=== PATIENT | female | born 1960 | race Caucasian/White ===

== ENCOUNTER 2016-11-23 14:12 | Emergency (ER) | payer MEDICAID, OTHER ==
[~2016-11-23] VITALS: Ht 157.5 cm; Wt 77.1 kg
[~2016-11-23 14:12] MED LIST: AC500T PO; ACET-819 PO; ALBU0.8322 IH; ALBU17AE23 IH; ALBU17AE3; ALBU17AE3 IH; ALBU2.5V52 INH; ALBU8.5H2 IH; ALBU8.5H2 INH; ALPR.5T PO; AMLO10TA82 PO; AMLO2.5T PO; AMOX500C2 PO; ASP325T PO; ASP81CT PO; ASP81TEC PO; ASPI-587 PO; ASPI-892 PO; AZIT-21 PO; AZTH250C PO; CARV12.5 PO; CLIN-62 PO; CLN.2T; CODE118S2 PO; CYCL10TA45 PO; CYCL10TA9; CYCL10TA9 PO; DCS100C PO; DIPH1TAB45; FAMO20TA5; FENO134C2 PO; FLUT1DIS28 INH; FRSM20T PO; FRSM40T PO; FURO20TA4 PO; GABA-488; GBPN300C; HYDR-1231 PO; HYDR-2858 PO; HYDR1CAP2 PO; HYDR1TAB PO; HYDR25CA5 PO; HYDR50TA76 PO; IBP600T1 PO; K-VANC1PB IV; Keflex; LAMO100T69 PO; LANS15CA PO; LANS30CA PO; LANS30CA43 PO; LEVO250T7 PO; LEVO500T69 PO; LEVO750T6 PO; LISI10TA PO; LISI20TA PO; LNS30CCR; LORA0.5T; MAGN-47 PO; MAXALT-MLT PO; METH4TAB PO; METO-272; METO-272 PO; METO50TA7 PO; METO5TAB2; MORP-34; MORP15TA; MTC5U10 PO; MTC5V480 PO; MTP100TCR PO; MTP50T PO; NAPR-243 PO; NAPR-689 PO; NAPR220C PO; NAPR250T2 PO; NF-ESOM40C; NIAC1000 PO; NITR-65 PO; NTR.4SL SL; OMEG-12 PO; OMEP20CA12 PO; OMG1KC PO; ONDA-42 PO; ONDA4TAB11 PO; ONDA4TAB8 PO; PANT40TA3; PHEN200T27 PO; PHEN64.8; PHEN97.2 PO; PHENOBARBITAL; POTA20TA15 PO; PRCD5U PO; PRD10T PO; PRD20T PO; PRM25T PO; RAMI5CAP PO; REGLAN LIQ; SEIZURE MED; SLMFT1E IH; SLMFT1E INH; SULF-222 PO; SULF1TAB35 PO; SULF1TAB38 PO; SULF1TAB7 PO; TIOT18CA IH; TLT2T PO; TOLTA4; TOLTA4 PO; TRAM-21 PO; TRM50T PO; [UNRECOGNIZED DRUG - CODE] PO
--- OUTSIDE RECORDS SUMMARY | 2016-11-23 14:20 | XMS REPORT | Continuity of Care Document ---
Author Author [facility] Organization [facility] Address Unknown Phone Unavailable Care Team Providers Care Shafting Cleaner Name Role Phone MehranSherice PCP [phone] Source Comments Some departments are not documenting in the electronic medical record. If you do not see the information that you expected, contact Release of Information in the Health Information Management department at [phone] for further assistance in locating additional records.[facility] Active Allergies and Adverse Reactions Allergen Noted Date Severity Reactions Comments Peterson Inhibitors 06/10/2014 UNKNOWN Nitric Oxide 06/10/2014 UNKNOWN Current Medications Prescription Sig. Disp. Refills Start End Date Status Date aspirin EC 81 mg tablet Take 81 mg by mouth Active daily. fluticasone-salmeterol Inhale 1 Puff by mouth Active (ADVAIR DISKUS) 100-50 every 12 hours. mcg inhalation disk albuterol (VENTOLIN HFA, Inhale 2 Puffs by mouth Active PROAIR HFA) 90 every 4 hours as needed. mcg/actuation inhaler metoclopramide HCl Take 10 mg by mouth twice Active (REGLAN) 1 mg/mL oral daily. solution omeprazole DR(+) Take 20 mg by mouth Active (PRILOSEC) 20 mg capsule daily. metoprolol XL (TOPROL XL) Take 50 mg by mouth Active 50 mg tablet daily. senna/docusate Take 1 Tab by mouth twice 60 Tab 0 06/22/20 Active (SENOKOT-S) 8.6/50 mg daily. 14 tablet acetaminophen SR(+) Take 650 mg by mouth Active (TYLENOL) 650 mg tablet every 6 hours as needed. ferrous sulfate 325 mg Take 1 Tab by mouth at 30 Tab 1 09/21/20 Active (65 mg iron) tablet bedtime daily. 14 polyethylene glycol 3350 Take 17 g by mouth daily 1 Bottle 1 09/21/20 Active (GLYCOLAX; MIRALAX) 17 as needed (constipation). 14 gram/dose powder morphine IR (MSIR) 15 mg Take 0.5 Tabs by mouth 120 Tab 2 09/21/20 Active tablet every 3 hours as needed 14 for Pain Earliest Fill Date: 09/20/14 morphine SR (MS CONTIN; Take 1 Tab by mouth twice 60 Tab 3 09/21/20 Active ORAMORPH SR) 15 mg tablet daily Earliest Fill Date: 14 09/20/14 traMADol (ULTRAM) 50 mg Take 0.5 Tabs by mouth 30 Tab 1 09/21/20 Active tablet every 8 hours as needed 14 for Pain. gabapentin (NEURONTIN) Take 1 Cap by mouth three 270 Cap 3 09/21/20 Active 300 mg capsule times daily. 14 bisacodyl (DULCOLAX) 10 Insert or Apply 1 15 0 09/21/20 Active mg rectal suppository Suppository to rectal Suppository 14 area as directed daily as needed. cyclobenzaprine Take 1 Tab by mouth twice 60 Tab 1 09/21/20 Active (FLEXERIL) 10 mg tablet daily (at 10AM and 10PM). 14 lidocaine (LIDODERM) 5 % Apply to painful area as 30 Patch 1 09/21/20 Active topical patch needed 14 LORazepam injection Administer 10 mg through Active (ATIVAN) 2 mg/mL syrg vein every 1 hour as needed. LORazepam injection Administer 5 mg through Active (ATIVAN) 2 mg/mL syrg vein every 1 hour as needed. PHENobarbital 97.2 mg Take 97.2 mg by mouth at Active tablet bedtime daily. trimethoprim-sulfamethoxa Take 1 Tab by mouth twice 60 Tab 3 11/11/19 Active zole (BACTRIM DS) 160-800 daily. 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 06/10/2014 Immunizations Name Dates Previously Given Next Due Flu Vaccine Trivalent=>3 07/12/2014 Yo (Preservative Free) Social History Tobacco Use Types Packs/Day Years Used Date Never Smoker Smokeless Tobacco: Never Used Alcohol Use Drinks/Week oz/Week Comments No denies alcohol use - states every 6 months or so may have a drink Last Filed Vital Signs Vital Sign Reading Time Taken Blood Pressure 110/80 11/11/2014 1:07 PM [employer] Pulse 72 11/11/2014 1:07 PM [employer] Temperature 36.5 C (97.7 F) 11/11/2014 1:07 PM [employer] Respiratory Rate 16 11/11/2014 1:07 PM [employer] Height 1.6 m (5' 3") 11/11/2014 1:07 PM [employer] Weight 82.101 kg (181 lb) 11/11/2014 1:07 PM [employer] Body Mass Index 32.07 11/11/2014 1:07 PM [employer] Oxygen Saturation 94% 09/21/2014 7:45 AM [employer] Plan of Care Health Maintenance Due Date Last Done Comments Physical (Comprehensive) 1967 Exam Pertussis Vaccine 1971 Tetanus Vaccine 1977 Cervical Cancer Screening 1981 Breast Cancer Screening 2000 Colorectal Cancer 2010 Screening Influenza Vaccine 06/13/2016 07/12/2014 Hepatitis C Screening Completed 06/11/2014, 06/11/2014, 06/10/2014 Results from Last 3 Months Not on file
[2016-11-23] MEDS ORDERED: RT-ALBUTEROL/IPRATROPIUM 3 ML (DUONEB) VIAL INH ONE (15:00)
[2016-11-23] MEDS ORDERED: DOXYCYCLINE 100 MG (VIBRAMYCIN) TABLET PO STA (15:35)
--- NOTE | 2016-11-23 15:41 | ED Cough/URI ---
General Chief Complaint: Cough/Cold/Flu Symptoms Stated Complaint: SOA/COUGH/VOMITING Source: patient Exam Limitations: no limitations History of Present Illness Time seen by provider: 15:25 Initial Comments Here with report of shortness of air and cough for the last week. If not better with hlgn-idx-ymbhunk meds. She has history of bronchitis but does not have an inhaler. Denies fever. She states that she has lost her voice in the last 24 hours. Has occasionally vomited with coughing. Timing/Duration: week, getting worse Severity/Quality: moderate, dry cough Prior Episodes/Possible Cause: occasional episodes Modifying Factors: Worse With Activity, Worse With Coughing, Improves With Rest Associated Symptoms: cough, shortness of breath, wheezing Allergies and Home Medications Allergies Coded Allergies: nitrous oxide (Verified Allergy, Unknown, 06/08/07) AILEEN Inhibitors (Verified Adverse Reaction, Unknown, 05/25/14) Causes Hyperkalemia Home Medications Albuterol Sulfate 8.5 Gm Hfa.aer.ad #1 2 PUFF IH Q4H PRN PRN WHEEZING Prescribed by: QUIN JONES on 11/23/16 1544 Doxycycline Hyclate 100 Mg Tablet #20 100 MG PO BID Prescribed by: QUIN JONES on 11/23/16 1544 Lansoprazole 30 Mg Capsule.dr 30 MG PO UD (Reported) Metoprolol Succinate 50 Mg Tab.er.24h #30 (Reported) Morphine Sulfate 15 Mg Tablet #60 (Reported) Phenobarbital 64.8 Mg Tablet #75 (Reported) Prednisone 20 Mg Tab #10 40 MG PO DAILY Prescribed by: QUIN JONES on 11/23/16 1544 Sulfamethoxazole/Trimethoprim 1 Each Tablet #20 1 EACH PO BID Prescribed by: HOLA BRIGHT on 08/05/16 0796 Constitutional: see HPINo chills, No fever EENTM: hoarseness nose congestion Respiratory: cough short of breath wheezing Cardiovascular: no symptoms reported Gastrointestinal: see HPINo diarrhea, No nausea, vomiting Genitourinary: no symptoms reported Musculoskeletal: no symptoms reported Past Iuvmjaf-Xaemeh-Ndjfpn Hx Patient Social History Former Smoker/When Quit: Oct 13, 2007 Recent Foreign Travel: No Contact w/Someone Who Travel: No Recent Hopitalizations: No Immunizations Up To Date Tetanus Booster (TDap): Less than 5yrs PED Vaccines UTD: No Date of Pneumonia Vaccine: Jul 13, 2012 Date of Influenza Vaccine: Aug 17, 2014 Seasonal Allergies Seasonal Allergies: No Surgeries HX Surgeries: Yes Surgeries: Abdominal, Appendectomy, Bladder Surgery, Section, Hysterectomy, Orthopedic, Tonsillectomy Respiratory Hx Respiratory Disorders: Yes (SUPPOSED TO WEAR O2 AT HS AT 2 1/2-3L AT HS AND PRN) Respiratory Disorders: Asthma, Pneumonia, Chronic Bronchitis, COPD, Emphysema Cardiovascular Hx Cardiac Disorders: Yes Cardiac Disorders: Cardiomyopathy, Coronary Artery Disease, Endocarditis, Heart Attack, Hypertension, Peripheral Vascular Neurological Hx Neurological Disorders: Yes (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; CVA LEFT SIDE WEAKNESS, POOR BALANCE/USES WALKER) Neurological Disorders: Seizure Disorder, Traumatic Brain Injury 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 System Hx 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 Disorders: No Sexually Transmitted Disease: No HIV/AIDS: No Female 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 VENEREAL DISEASE CONTROL HEAD History: Hysterectomy Genitourinary Hx Genitourinary Disorders: Yes (OVERACTIVE BLADDER) Genitourinary Disorders: Kidney Infection, Bladder Infection, Kidney Stones, Renal Failure, UTI-Chronic Gastrointestinal Hx Gastrointestinal Disorders: Yes (CHRONIC ABDOMINAL PAIN COMPLAINT; GASTRITIS ; HEPATITIS C) Gastrointestinal Disorders: Abdominal Hernia, Gastroesophageal Reflux, Pancreatitis, Hepatitis Musculoskeletal Hx Musculoskeletal Disorders: Yes Musculoskeletal Disorders: Arthritis, Chronic Back Pain Endocrine Hx Endocrine Disorders: No HEENT HX ENT Disorders: Yes (POOR DENTITION; FALSE TEETH ON FRONT WITH PARTIAL PLATE) Loss of Vision: Denies Hearing Impairment: Denies Cancer Hx Cancer: Yes Cancer: Cervical Psychosocial Hx Psychiatric Problems: Yes (SUBSTANCE ABUSE) Behavioral Health Disorders: Anxiety, Bipolar, Depression Integumentary HX Skin/Integumentary Disorder: No Blood Transfusions Hx Blood Disorders: Yes (ANEMIA) Adverse Reaction to a Blood Tr: No Reviewed Nursing Assessment Reviewed/Agree w Nursing PMH: Yes Family Medical History Significant Family History: No Pertinent Family Hx Family Medial History: Abdominal aortic aneurysm 03 FATHER Alcoholism 03 FATHER 03 MOTHER 09 SISTER 09 SISTER Cancer 03 FATHER Cataract 03 FATHER 03 MOTHER Chest pain 03 MOTHER Family history: Diabetes mellitus 03 MOTHER Family history: Hypertension 03 MOTHER Family history: Thyroid disorder 03 MOTHER Headache 09 SISTER Heart disease 03 MOTHER History of drug abuse 03 FATHER 09 SISTER Myocardial infarction 03 MOTHER No Family History of: Alger's disease Aphasia Cancer of colon Congenital heart disease Congestive heart failure Cystic fibrosis Dementia Dysphagia Family history: Allergy Family history: Alzheimer's disease Family history: Arthritis Family history: Asthma Family history: Breast disease Family history: Cardiovascular disease Family history: Coronary thrombosis Family history: Gastrointestinal disease Family history: Glaucoma Family history: Osteoporosis Hearing loss Hereditary disease History of - anemia History of - disorder History of - respiratory disease Human immunodeficiency virus (HIV) seropositivity Hypercholesterolemia Infertile Kidney disease Malignant neoplasm of lung Parkinson's disease Prostate cancer Psychotic disorder Seizure disorder Stroke Tuberculosis Visual impairment Physical Exam Vital Signs Vital Sign - Last 12Hours 11/23/16 15:10 Pulse Ox 96 Capillary Refill : General Appearance: WD/WN no apparent distress HEENT: PERRL/EOMI pharynx normal Neck: full range of motion supple Respiratory: no accessory muscle use wheezing other (course sounding cough) Cardiovascular: regular rate, rhythm no murmur Gastrointestinal: non tender soft Neurologic/Psychiatric: alert oriented x 3 Skin: normal color warm/dry Progress/Results/Core Measures Results/Orders Micro Results Microbiology 11/23/16 Influenza Types A,B Antigen (JOHANA) - Final, Complete My Orders Orders-QUIN JONES MD Influenza A And B Antigens (11/23/16 14:38) Albuterol/Ipra Inhalation Soln (Duoneb I (11/23/16 15:00) Svn Sm Volume Nebulizer Rt-Rfs (11/23/16 14:47) Chest Pa/Lat (2 View) (11/23/16 15:10) Doxycycline Hyclate Tablet (Vibramycin T (11/23/16 15:35) Prednisone Tablet (Deltasone Tablet) (11/23/16 15:45) Rx-Albuterol Inhaler (Rx-Proair) (11/23/16 15:45) Medications Given in ED Current Medications Medications Dose Ordered Sig/Tad Route Start Time Stop Time Status Last Admin Dose Admin Albuterol/ Ipratropium 3 ml ONCE ONCE INH 11/23/16 15:00 11/23/16 15:01 DC 11/23/16 15:03 3 ML Vital Signs/I&O Vital Sign - Last 12Hours 11/23/16 15:10 Pulse Ox 96 Progress Note : Progress Note Seen and evaluated. Influenza screen done. Duo neb ordered. This did help a little bit. Two-view chest x-ray done. No acute findings of pneumonia. Doxycycline 100 mg by mouth, prednisone 40 mg by mouth and albuterol MDI given. Discharged home with return precautions. Patient verbalize understanding instructions and agreement with plan. Diagnostic Imaging Diagonstic Imaging: Xray Plain Films/CT/US/NM/MRI: chest Comments NAME: [facility] REC#: [id number] PT STATUS: REG ER : 1960 PHYSICIAN: QUIN JONES MD ADMIT DATE: 11/23/16/ER Draft Date of Exam:11/23/16 CHEST PA/LAT (2 VIEW) EXAM: Chest PA/LAT (2 views). INDICATION: Worsening shortness of breath. Cough. Vomiting. COMPARISON: Chest radiograph from 06/06/2014. FINDINGS: Normal heart size and pulmonary vascularity. No focal pulmonary opacity, pleural effusion or pneumothorax. Mild bronchial wall thickening, similar to the prior exam, presumably due to chronic lung disease. Degenerative changes in the spine. IMPRESSION: No acute cardiopulmonary findings. Dictated on workstation # [id number] Dict: 11/23/16 1531 Trans: 11/23/[address] [facility] [id number] Interpreted by: DAVIDE WALTERS MD Electronically signed by: Departure Impression Impression: Primary Impression: Bronchitis Disposition: 01 HOME, SELF-CARE Condition: Stable Departure-Patient Inst. Decision time for Depature: 15:42 Referrals: [facility] (PCP/Family) Primary Care Physician Patient Instructions: Acute Bronchitis, Adult (DC) Add. Discharge Instructions: All discharge instructions reviewed with patient and/or family. Voiced understanding. Take medications as directed. Follow-up with your doctor on Friday or Friday for recheck. Return for worsening, fever, vomiting, breathing problems, weakness or other concerns as needed. Scripts Albuterol Sulfate (Proair Hfa)8.5 Gm Hfa.aer.ad2 Puff IH Q4H PRN WHEEZING #1 INH Ref 0 Prov:QUIN JONES MD 11/23/16 Prednisone 20 Mg Tab40 Mg PO DAILY #10 TAB Prov:QUIN JONES MD 11/23/16 Doxycycline Hyclate 100 Mg [id number] Mg PO BID #20 TAB Prov:QUIN JONES MD 11/23/16 QUIN JONES MD Nov 23, 2016 15:41
[2016-11-23] MEDS ORDERED: RT-ALBUINH IH (15:44)
[2016-11-23] MEDS ORDERED: DOXY100T2 PO (15:44)
[2016-11-23] MEDS ORDERED: PRD20T PO (15:44)
[2016-11-23] MEDS ORDERED: predniSONE 20 MG TAB PO ONE (15:45)
[2016-11-23] MEDS ORDERED: RX-ALBUTEROL INHALER (PROAIR) 8 GM IH PRN (15:45)
[2016-11-23 16:00] VITALS: BP 142/70
== END 2016-11-23 16:00 | disposition home or self-care (01) ==
LOC: EDUNIT# 14:12 → ER 14:15
DX: J44.9 Chronic obstructive pulmonary disease, unspecified (principal); I25.10 Atherosclerotic heart disease of native coronary artery without angina pectoris; Z79.899 Other long term (current) drug therapy
CPT/HCPCS: 71020; 87804; 99282

== ENCOUNTER 2017-03-06 09:42 | Emergency (ER) | payer MEDICAID, OTHER ==
[~2017-03-06] VITALS: Ht 160 cm; Wt 90.7 kg
[~2017-03-06 09:42] MED LIST changes: +DOXY100T2 PO; +RT-ALBUINH IH
--- NOTE | 2017-03-06 10:07 | ED Abdominal Pain ---
General Chief Complaint: Abdominal/GI Problems Stated Complaint: ABD PAIN Source of Information: Patient, EMS Exam Limitations: No Limitations (MIESHA UPTON MD) History of Present Illness Time Seen By Provider: 10:03 Initial Comments The patient is a 56-year-old white female known to me for many years relative to repeated emergency room visits mostly for pseudoseizures. She reports that she developed abdominal pain a week ago. She states that it got much worse yesterday. [facility] no [facility] to contact him. She states that there has not been vomiting. She had a bowel movement yesterday which seemed to be normal. She has been able to continue eating through this period of time. She motions that the pain is all over the belly although perhaps greater in the left lower quadrant. She also states that she is out of her usual maintenance medications. Timing/Duration: 1 Week Severity/Quality: Moderate Location: LLQ, Generalized Abdomen Radiation: No Radiation (MIESHA UPTON MD) Allergies and Home Medications Allergies Coded Allergies: nitrous oxide (Verified Allergy, Unknown, 06/08/07) ALIEEN Inhibitors (Verified Adverse Reaction, Unknown, 05/25/14) Causes Hyperkalemia Home Medications Albuterol Sulfate 8.5 Gm Hfa.aer.ad, 2 PUFF IH Q4H PRN for WHEEZING, #1 Ref 0 Prescribed by: QUIN JONES on 11/23/16 1544 Doxycycline Hyclate 100 Mg Tablet, 100 MG PO BID, #20 Prescribed by: QUIN JONES on 11/23/16 1544 Lansoprazole 30 Mg Capsule.dr, 30 MG PO UD, (Reported) Metoprolol Succinate 50 Mg Tab.er.24h, #30 (Reported) Morphine Sulfate 15 Mg Tablet, #60 (Reported) Phenobarbital 64.8 Mg Tablet, #75 (Reported) Polyethylene Glycol 3350 119 Gm Powder, 17 GM PO BID, #119 Ref 1 Take one capful twice daily for 3 days and then one capful daily thereafter to keep stools soft. Prescribed by: QUIN JONES on 03/06/17 1140 Prednisone 20 Mg Tab, 40 MG PO DAILY, #10 Prescribed by: QUIN JONES on 11/23/16 1544 Sulfamethoxazole/Trimethoprim 1 Each Tablet, 1 EACH PO BID, #20 Prescribed by: HOLA BRIGHT on 08/05/16 2216 Review of Systems Constitutional: see HPI EENTM: No Symptoms Reported Respiratory: No Symptoms Reported Cardiovascular: No Symptoms Reported Gastrointestinal: See HPI Genitourinary: No Symptoms Reported Musculoskeletal: no symptoms reported Skin: no symptoms reported Psychiatric/Neurological: No Symptoms Reported Endocrine: No Symptoms Reported Hematologic/Lymphatic: No Symptoms Reported (MIESHA UPTON MD) Past Noakdar-Pfxaaf-Ubtmpu Hx Patient Social History Alcohol Use: Denies Use Recreational 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) Smoking Status: Never a Smoker Former Smoker/When Quit: Oct 13, 2007 Recent Hopitalizations: No (MIESHA UPTON MD) Immunizations Up To Date Tetanus Booster (TDap): Less than 5yrs PED Vaccines UTD: No Date of Pneumonia Vaccine: Jul 13, 2012 Date of Influenza Vaccine: Aug 17, 2014 (MIESHA UPTON MD) Seasonal Allergies Seasonal Allergies: No (MIESHA UPTON MD) Surgeries HX Surgeries: Yes Surgeries: Abdominal, Appendectomy, Bladder Surgery, Section, Hysterectomy, Orthopedic, Tonsillectomy (MIESHA UPTON MD) Respiratory Hx Respiratory Disorders: Yes (SUPPOSED TO WEAR O2 AT HS AT 2 1/2-3L AT HS AND PRN) Respiratory Disorders: Asthma, Pneumonia, Chronic Bronchitis, COPD, Emphysema (MIESHA UPTON MD) Cardiovascular Hx Cardiac Disorders: Yes Cardiac Disorders: Cardiomyopathy, Coronary Artery Disease, Endocarditis, Heart Attack, Hypertension, Peripheral Vascular (MIESHA UPTON MD) Neurological Hx Neurological Disorders: Yes (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; CVA LEFT SIDE WEAKNESS, POOR BALANCE/USES WALKER) Neurological Disorders: Seizure Disorder, Traumatic Brain Injury (MIESHA UPTON MD) 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 System Hx 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 Disorders: No Sexually Transmitted Disease: No HIV/AIDS: No Female 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 (MIESHA UPTON MD) Genitourinary Hx Genitourinary Disorders: Yes (OVERACTIVE BLADDER) Genitourinary Disorders: Kidney Infection, Bladder Infection, Kidney Stones, Renal Failure, UTI-Chronic (MIESHA UPTON MD) Gastrointestinal Hx Gastrointestinal Disorders: Yes (CHRONIC ABDOMINAL PAIN COMPLAINT; GASTRITIS ; HEPATITIS C) Gastrointestinal Disorders: Abdominal Hernia, Gastroesophageal Reflux, Pancreatitis, Hepatitis (MIESHA UPTON MD) Musculoskeletal Hx Musculoskeletal Disorders: Yes Musculoskeletal Disorders: Arthritis, Chronic Back Pain (MIESHA UPTON MD) Endocrine Hx Endocrine Disorders: No (MIESHA UPTON MD) HEENT HX ENT Disorders: Yes (POOR DENTITION; FALSE TEETH ON FRONT WITH PARTIAL PLATE) Loss of Vision: Denies Hearing Impairment: Denies (MIESHA UPTON MD) Cancer Hx Cancer: Yes Cancer: Cervical (MIESHA UPTON MD) Psychosocial Hx Psychiatric Problems: Yes (SUBSTANCE ABUSE) Behavioral Health Disorders: Anxiety, Bipolar, Depression (MIESHA UPTON MD) Integumentary HX Skin/Integumentary Disorder: No (MIESHA UPTON MD) Blood Transfusions Hx Blood Disorders: Yes (ANEMIA) Adverse Reaction to a Blood Tr: No (MIESHA UPTON MD) Family Medical History Significant Family History: No Pertinent Family Hx Family Medial History: Abdominal aortic aneurysm 03 FATHER Alcoholism 03 FATHER 03 MOTHER 09 SISTER 09 SISTER Cancer 03 FATHER Cataract 03 FATHER 03 MOTHER Chest pain 03 MOTHER Family history: Diabetes mellitus 03 MOTHER Family history: Hypertension 03 MOTHER Family history: Thyroid disorder 03 MOTHER Headache 09 SISTER Heart disease 03 MOTHER History of drug abuse 03 FATHER 09 SISTER Myocardial infarction 03 MOTHER No Family History of: Montezuma's disease Aphasia Cancer of colon Congenital heart disease Congestive heart failure Cystic fibrosis Dementia Dysphagia Family history: Allergy Family history: Alzheimer's disease Family history: Arthritis Family history: Asthma Family history: Breast disease Family history: Cardiovascular disease Family history: Coronary thrombosis Family history: Gastrointestinal disease Family history: Glaucoma Family history: Osteoporosis Hearing loss Hereditary disease History of - anemia History of - disorder History of - respiratory disease Human immunodeficiency virus (HIV) seropositivity Hypercholesterolemia Infertile Kidney disease Malignant neoplasm of lung Parkinson's disease Prostate cancer Psychotic disorder Seizure disorder Stroke Tuberculosis Visual impairment (MIESHA UPTON MD) Family Medial History: Abdominal aortic aneurysm 03 FATHER Alcoholism 03 FATHER 03 MOTHER 09 SISTER 09 SISTER Cancer 03 FATHER Cataract 03 FATHER 03 MOTHER Chest pain 03 MOTHER Family history: Diabetes mellitus 03 MOTHER Family history: Hypertension 03 MOTHER Family history: Thyroid disorder 03 MOTHER Headache 09 SISTER Heart disease 03 MOTHER History of drug abuse 03 FATHER 09 SISTER Myocardial infarction 03 MOTHER No Family History of: Isael's disease Aphasia Cancer of colon Congenital heart disease Congestive heart failure Cystic fibrosis Dementia Dysphagia Family history: Allergy Family history: Alzheimer's disease Family history: Arthritis Family history: Asthma Family history: Breast disease Family history: Cardiovascular disease Family history: Coronary thrombosis Family history: Gastrointestinal disease Family history: Glaucoma Family history: Osteoporosis Hearing loss Hereditary disease History of - anemia History of - disorder History of - respiratory disease Human immunodeficiency virus (HIV) seropositivity Hypercholesterolemia Infertile Kidney disease Malignant neoplasm of lung Parkinson's disease Prostate cancer Psychotic disorder Seizure disorder Stroke Tuberculosis Visual impairment (QUIN JONES MD) Physical Exam Vital Signs VS - Last 72 Hours, by Label 03/06/17 09:42 Temp 99.0 Pulse 80 Resp 18 B/P (MAP) 170/80 Pulse Ox 98 (QUIN JONES MD) Vital Signs Capillary Refill : (MIESHA UPTON MD) General Appearance: moderate distress HEENT: normal ENT inspection Neck: full range of motion Respiratory: chest non-tender, lungs clear, normal breath sounds, no respiratory distress, no accessory muscle use Cardiovascular: normal peripheral pulses, regular rate, rhythm, no edema, no gallop, no JVD, no murmur Gastrointestinal: other (abdomen is obese and patulous. 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5 % Platelet Count 308 130-400 10^3/uL Mean Platelet Volume 9.9 7.4-10.4 FL Neutrophils (%) (Auto) 54 42-75 % Lymphocytes (%) (Auto) 35 12-44 % Monocytes (%) (Auto) 7 0-12 % Eosinophils (%) (Auto) 4 0-10 % Basophils (%) (Auto) 0 0-10 % Neutrophils # (Auto) 4.6 1.8-7.8 X 10^3 Lymphocytes # (Auto) 3.0 1.0-4.0 X 10^3 Monocytes # (Auto) 0.6 0.0-1.0 X 10^3 Eosinophils # (Auto) 0.3 0.0-0.3 10^3/uL Basophils # (Auto) 0.0 0.0-0.1 10^3/uL Sodium Level 141 135-145 MMOL/L Potassium Level 4.4 3.6-5.0 MMOL/L Chloride Level 104 98-107 MMOL/L Carbon Dioxide Level 25 21-32 MMOL/L Anion Gap 12 5-14 MMOL/L Blood Urea Nitrogen 33 H 7-18 MG/DL Creatinine 1.51 H 0.60-1.30 MG/DL Estimat Glomerular Filtration Rate 36 BUN/Creatinine Ratio 22 Glucose Level 98 70-105 MG/DL Calcium Level 9.4 8.5-10.1 MG/DL Total Bilirubin 0.4 0.1-1.0 MG/DL Aspartate Amino Transf (AST/SGOT) 18 5-34 U/L Alanine Aminotransferase (ALT/SGPT) 26 0-55 U/L Alkaline Phosphatase 64 40-136 U/L Total Protein 7.9 6.4-8.2 G/DL Albumin 4.2 3.2-4.5 G/DL Lipase 60 8-78 U/L Urine Color YELLOW Urine Clarity CLEAR Urine pH 6 5-9 Urine Specific [place] 1.015 L 1.016-1.022 Urine Protein NEGATIVE NEGATIVE Urine Glucose (UA) NEGATIVE NEGATIVE Urine Ketones NEGATIVE NEGATIVE Urine Nitrite NEGATIVE NEGATIVE Urine Bilirubin NEGATIVE NEGATIVE Urine Urobilinogen NORMAL NORMAL MG/DL Urine Leukocyte Esterase NEGATIVE NEGATIVE Urine RBC (Auto) NEGATIVE NEGATIVE Urine RBC NONE /HPF Urine WBC NONE /HPF Urine Crystals NONE /LPF Urine Bacteria NEGATIVE /HPF Urine Casts NONE /LPF Urine Mucus NEGATIVE /LPF Urine Culture Indicated NO (QUIN JONES MD) Vital Signs/I&O Vital Sign - Last 12Hours 03/06/17 09:42 Temp 99.0 Pulse 80 Resp 18 B/P (MAP) 170/80 Pulse Ox 98 (QUIN JONES MD) Progress Note : Progress Note Assumed care from Dr. UPTON pending x-ray and labs. 1130: Patient resting comfortably. Constipation noted on x-ray. Discharged home with return precautions. Patient verbalize understanding instructions and agreement with plan. She has appointment with her doctor tomorrow and she will keep that appointment. (QUIN JONES MD) Diagnostic Imaging Diagonstic Imaging: Xray Plain Films/CT/US/NM/MRI: abdomen Comments NAME: [facility] REC#: [id number] PT STATUS: REG ER : 1960 PHYSICIAN: MIESHA UPTON MD ADMIT DATE: 03/06/17/ER Signed Date of Exam: 03/06/17 ABDOMEN/KUB 1VIEW EXAM: KUB. INDICATION: Abdominal pain. FINDINGS: There are moderate amounts of fecal material seen in the colon. No dilated bowel loops are seen. No calcifications are noted to suggest urinary tract stones. IMPRESSION: No definite abnormality. Dictated by: Dictated on workstation # [id number] Dict: 03/06/17 1035 Trans: 03/06/17 1042 Interpreted by: PRITI SINGER MD Electronically signed by: PRITI SINGER MD 03/06/17 1042 Reviewed: Reviewed by Me (QUIN JONES MD) Departure Impression Impression: Primary Impression: Constipation Qualified Codes: K59.00 - Constipation, unspecified Additional Impression: Hypertensive urgency Disposition: 01 HOME, SELF-CARE Condition: Improved Departure-Patient Inst. Decision time for Depature: 11:36 (QUIN JONES MD) Referrals: [facility] (PCP/Family) Primary Care Physician Patient Instructions: Constipation, Adult (DC) Add. Discharge Instructions: All discharge instructions reviewed with patient and/or family. Voiced understanding. Take medications as directed. Follow-up with your doctor tomorrow as scheduled. Return for worse pain, fever, vomiting, weakness, breathing problems or other concerns as needed. Drink plenty of fluids. Scripts Polyethylene Glycol 3350 (Miralax) 119 Gm Powder 17 GM PO BID, #119 GM 1 Refill Take one capful twice daily for 3 days and then one capful daily thereafter to keep stools soft. Prov: QUIN JONES MD 03/06/17 MIESHA UPTON MD March 06, 2017 10:06 QUIN JONES MD March 06, 2017 11:39
[2017-03-06 10:09] LABS: BASOPHILS % (AUTO) 0 % (0-10); EOSINOPHILS # (AUTO) 0.3 10^3/uL (0.0-0.3); EOSINOPHILS % (AUTO) 4 % (0-10); LYMPHOCYTES % (AUTO) 35 % (12-44); MEAN CORPUSCULAR HEMOGLOBIN 29 PG (25-34); MEAN CORPUSCULAR HGB CONC 33 G/DL (32-36); MEAN CORPUSCULAR VOLUME 90 FL (80-99); MEAN PLATELET VOLUME 9.9 FL (7.4-10.4); MONOCYTES # (AUTO) 0.6 X 10^3 (0.0-1.0); MONOCYTES % (AUTO) 7 % (0-12); NEUTROPHILS # (AUTO) 4.6 X 10^3 (1.8-7.8); NEUTROPHILS % (AUTO) 54 % (42-75); PLATELET COUNT 308 10^3/uL (130-400); RED CELL DISTRIBUTION WIDTH 13.2 % (10.0-14.5); WHITE BLOOD COUNT 8.6 10^3/uL (4.3-11.0)
[2017-03-06 10:35] LABS: ALBUMIN 4.2 G/DL (3.2-4.5); BILIRUBIN,TOTAL 0.4 MG/DL (0.1-1.0); CALCIUM 9.4 MG/DL (8.5-10.1); CREATININE SERUM 1.51 MG/DL (0.60-1.30); POTASSIUM 4.4 MMOL/L (3.6-5.0); TOTAL PROTEIN 7.9 G/DL (6.4-8.2)
--- NOTE | 2017-03-06 10:39 | Diagnostic Imaging Report ---
EXAM: KUB. INDICATION: Abdominal pain. FINDINGS: There are moderate amounts of fecal material seen in the colon. No dilated bowel loops are seen. No calcifications are noted to suggest urinary tract stones. IMPRESSION: No definite abnormality. Dictated by: Dictated on workstation # [id number]
[2017-03-06 10:49] LABS: BILIRUBIN,URINE NEGATIVE (NEGATIVE); KETONES,URINE NEGATIVE (NEGATIVE); LEUKOCYTE ESTERASE ,URINE NEGATIVE (NEGATIVE); NITRITE,URINE NEGATIVE (NEGATIVE); PH,URINE 6 (5-9); PROTEIN,URINE NEGATIVE (NEGATIVE); UROBILINOGEN,URINE NORMAL (NORMAL)
[2017-03-06] MEDS ORDERED: POLY119P5 PO (11:40)
[2017-03-06 11:43] VITALS: BP 166/97
== END 2017-03-06 11:46 | disposition home or self-care (01) ==
LOC: EDUNIT# 09:42 → ER 09:45
DX: K59.00 Constipation, unspecified (principal); I16.0 Hypertensive urgency; I25.10 Atherosclerotic heart disease of native coronary artery without angina pectoris; J44.9 Chronic obstructive pulmonary disease, unspecified; Z79.899 Other long term (current) drug therapy
CPT/HCPCS: 36415; 74000; 80053; 81000; 83690; 85025

== ENCOUNTER 2017-06-18 18:00 | Emergency (ER) | payer MEDICAID ==
[~2017-06-18] VITALS: Ht 160 cm; Wt 90.8 kg
[~2017-06-18 18:00] MED LIST changes: +POLY119P5 PO
--- OUTSIDE RECORDS SUMMARY | 2017-06-18 18:07 | XMS REPORT | Clinical Summary ---
Author Author [facility] Organization [facility] Address Unknown Phone Unavailable Care Team Providers Care Esol Teacher Assistant Name Role Phone PCP Unavailable Source Comments Some departments are not documenting in the electronic medical record. If you do not see the information that you expected, contact Release of Information in the Health Information Management department at [phone] for further assistance in locating additional records.[facility] Allergies Active Allergy Reactions Severity Noted Date Comments Peterson Inhibitors UNKNOWN 06/10/2014 Nitric Oxide UNKNOWN 06/10/2014 Current Medications Prescription Sig. Disp. Refills Start [...] Flu Vaccine Trivalent=>3 07/12/2014 Yo (Preservative Free) Family History Medical History Relation Name Comments Alcohol abuse Father Aneurysm Father Abdominal Aortic Cancer Father Diabetes Father Drug Abuse Father Diabetes Mother Drug Abuse Mother Heart Attack Mother Heart Failure Mother Hypertension Mother Thyroid Disease Mother Relation Name Status Comments Father Mother Social History Tobacco Use Types Packs/Day Years Used Date Never Smoker Smokeless Tobacco: Never Used Alcohol Use Drinks/Week oz/Week Comments No denies alcohol use - states every 6 months or so may have a drink Sex Assigned at Date Recorded Not on file Last Filed Vital Signs Vital Sign Reading Time Taken Blood Pressure 110/80 11/11/2014 1:07 PM [facility] Pulse 72 11/11/2014 1:07 PM [facility] Temperature 36.5 C (97.7 F) 11/11/2014 1:07 PM [facility] Respiratory Rate 16 11/11/2014 1:07 PM [facility] Oxygen Saturation 94% 09/21/2014 7:45 AM [facility] Inhaled Oxygen - - Concentration Weight 82.1 kg (181 lb) 11/11/2014 1:07 PM [facility] Height 160 cm (5' 3") 11/11/2014 1:07 PM [facility] Body Mass Index 32.06 11/11/2014 1:07 PM [facility] Plan of Treatment Health Maintenance Due Date Last Done Comments PHYSICAL (COMPREHENSIVE) 1967 EXAM PERTUSSIS VACCINE 1971 TETANUS VACCINE 1977 CERVICAL CANCER SCREENING 1990 BREAST CANCER SCREENING 2000 COLORECTAL CANCER 2010 SCREENING INFLUENZA VACCINE 06/13/2017 07/12/2014 HEPATITIS C SCREENING Completed 06/11/2014, 06/11/2014, 06/10/2014 Results Not on filefrom Last 3 Months
--- NOTE | 2017-06-18 18:59 | ED Integumentary General ---
General Chief Complaint: Skin/Wound Problems Stated Complaint: LT LEG SORE/BRUISING Nursing Triage Note: c/o wound on L medel x 1 week Source: patient Exam Limitations: no limitations History of Present Illness Time seen by provider: 18:58 Initial Comments 56-year-old female patient presents to the emergency department complaints of a wound to the left medel for one week. Denies seeing her family doctor for this. Denies known injury. Timing/Duration: week, getting worse Location: extremities (left medel) Possible Cause: no cause identified Modifying Factors: worse with other (worse with palpation) Allergies and Home Medications Allergies Coded Allergies: nitrous oxide (Verified Allergy, Unknown, 06/08/07) AILEEN Inhibitors (Verified Adverse Reaction, Unknown, 05/25/14) Causes Hyperkalemia Home Medications Albuterol Sulfate 8.5 Gm Hfa.aer.ad, 2 PUFF IH Q4H PRN for WHEEZING, #1 Ref 0 Prescribed by: QUIN JONES on 11/23/16 1544 Doxycycline Hyclate 100 Mg Tablet, 100 MG PO BID, #20 Prescribed by: QUIN JONES on 11/23/16 1544 Lansoprazole 30 Mg Capsule.dr, 30 MG PO UD, (Reported) Metoprolol Succinate 50 Mg Tab.er.24h, #30 (Reported) Morphine Sulfate 15 Mg Tablet, #60 (Reported) Phenobarbital 64.8 Mg Tablet, #75 (Reported) Polyethylene Glycol 3350 119 Gm Powder, 17 GM PO BID, #119 Ref 1 Take one capful twice daily for 3 days and then one capful daily thereafter to keep stools soft. Prescribed by: QUIN JONES on 03/06/17 1140 Prednisone 20 Mg Tab, 40 MG PO DAILY, #10 Prescribed by: QUIN JONES on 11/23/16 1544 Sulfamethoxazole/Trimethoprim 1 Each Tablet, 1 EACH PO BID, #20 Prescribed by: HOLA BRIGHT on 08/05/16 1046 Constitutional: No chills, No fever, No malaise Respiratory: No dyspnea on exertion, No phlegm, No short of breath, No wheezing Cardiovascular: No chest pain, No syncope Gastrointestinal: no symptoms reported Musculoskeletal: see HPI Skin: see HPI Psychiatric/Neurological: No Symptoms Reported All Other Systems Reviewed Negative Unless Noted: Yes (Negative excepted noted.) Past Fjibeve-Lofgfl-Hifnce Hx Patient Social History Alcohol Use: Denies Use Recreational 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) Smoking Status: Never a Smoker Recent Foreign Travel: No Contact w/Someone Who Travel: No Recent Infectious Disease Expo: No Recent Hopitalizations: No Immunizations Up To Date Tetanus Booster (TDap): Less than 5yrs PED Vaccines UTD: No Date of Pneumonia Vaccine: Jul 13, 2012 Date of Influenza Vaccine: Aug 17, 2014 Seasonal Allergies Seasonal Allergies: No Surgeries History of Surgeries: Yes (hernia repair, T&A, hysterectomy, bladder suspension , multi to left leg, ) Surgeries: Abdominal, Appendectomy, Bladder Surgery, Section, Hysterectomy, Orthopedic, Tonsillectomy Respiratory History of Respiratory Disorde: Yes (SUPPOSED TO WEAR O2 AT HS AT 2 1/2-3L AT HS AND PRN) Respiratory Disorders: Asthma, Pneumonia, Chronic Bronchitis, COPD, Emphysema Currently Using CPAP: No Currently Using BIPAP: No Cardiovascular History of Cardiac Disorders: Yes Cardiac Disorders: Cardiomyopathy, Coronary Artery Disease, Endocarditis, Heart Attack, Hypertension, Peripheral Vascular Neurological History of Neurological Disord: Yes (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; CVA LEFT SIDE WEAKNESS, POOR BALANCE/USES WALKER) Neurological Disorders: Seizure Disorder, Traumatic Brain Injury 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 System Hx 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 Disorders: No Sexually Transmitted Disease: No HIV/AIDS: No Female 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 Genitourinary Genitourinary Disorders: Kidney Infection, Bladder Infection, Kidney Stones, Renal Failure, UTI-Chronic Gastrointestinal History of Gastrointestinal Di: Yes (CHRONIC ABDOMINAL PAIN COMPLAINT; GASTRITIS; HEPATITIS C) Gastrointestinal Disorders: Abdominal Hernia, Gastroesophageal Reflux, Pancreatitis, Hepatitis Musculoskeletal History of Musculoskeletal Dis: Yes Musculoskeletal Disorders: Arthritis, Chronic Back Pain Endocrine History of Endocrine Disorders: No HEENT Loss of Vision: Denies Hearing Impairment: Denies Cancer History of Cancer: Yes Cancer: Cervical Psychosocial History of Psychiatric Problem: Yes (SUBSTANCE ABUSE) Behavioral Health Disorders: Anxiety, Bipolar, Depression Integumentary History of Skin or Integumenta: No Blood Transfusions History of Blood Disorders: Yes (ANEMIA) Adverse Reaction to a Blood Tr: No Reviewed Nursing Assessment Reviewed/Agree w Nursing PMH: Yes Family Medical History Significant Family History: No Pertinent Family Hx Family Medial History: Abdominal aortic aneurysm 03 FATHER Alcoholism 03 FATHER 03 MOTHER 09 SISTER 09 SISTER Cancer 03 FATHER Cataract 03 FATHER 03 MOTHER Chest pain 03 MOTHER Family history: Diabetes mellitus 03 MOTHER Family history: Hypertension 03 MOTHER Family history: Thyroid disorder 03 MOTHER Headache 09 SISTER Heart disease 03 MOTHER History of drug abuse 03 FATHER 09 SISTER Myocardial infarction 03 MOTHER No Family History of: [place]'s disease Aphasia Cancer of colon Congenital heart disease Congestive heart failure Cystic fibrosis Dementia Dysphagia Family history: Allergy Family history: Alzheimer's disease Family history: Arthritis Family history: Asthma Family history: Breast disease Family history: Cardiovascular disease Family history: Coronary thrombosis Family history: Gastrointestinal disease Family history: Glaucoma Family history: Osteoporosis Hearing loss Hereditary disease History of - anemia History of - disorder History of - respiratory disease Human immunodeficiency virus (HIV) seropositivity Hypercholesterolemia Infertile Kidney disease Malignant neoplasm of lung Parkinson's disease Prostate cancer Psychotic disorder Seizure disorder Stroke Tuberculosis Visual impairment Physical Exam Vital Signs Vital Sign - Last 12Hours 06/18/17 18:30 Temp 98.4 Pulse 90 Resp 18 B/P (MAP) 141/99 Pulse Ox 95 Capillary Refill : Less Than 3 Seconds General Appearance: WD/WN, no apparent distress, other (patient is lying on her right side comfortably. Upon this examiner but and gloves patient immediately sits up and begins rocking and starts to cry.) Cardiovascular: normal peripheral pulses, regular rate, rhythm, no edema, no murmur Respiratory: lungs clear, normal breath sounds, no respiratory distress Extremities: normal range of motion, no pedal edema, normal capillary refill, inflammation (8x6 cm area of erythema, induration, swelling, tenderness, and warmth of the left anterior distal leg with faint erythema up the anterior medel to the tibial tuberosity. ) Neurologic/Psychiatric: alert, normal mood/affect, oriented x 3 Skin: normal color, warm/dry, No other (8x6 cm area of erythema, induration, swelling, tenderness, and warmth of the left anterior distal leg with faint erythema up the anterior medel to the tibial tuberosity. ) Skin Problem Location: lower extremities Skin Problem Character: other (8x6 cm area of erythema, induration, swelling, tenderness, and warmth of the left anterior distal leg with faint erythema up the anterior medel to the tibial tuberosity. ) Progress/Results/Core Measures Results/Orders Lab Results Laboratory Tests Test 06/18/17 19:30 Range/Units White Blood Count 8.0 4.3-11.0 10^3/uL Red Blood Count 4.36 4.35-5.85 10^6/uL Hemoglobin 13.0 11.5-16.0 G/DL Hematocrit 39 35-52 % Mean Corpuscular Volume 90 80-99 FL Mean Corpuscular Hemoglobin 30 25-34 PG Mean Corpuscular Hemoglobin Concent 33 32-36 G/DL Red Cell Distribution Width 13.5 10.0-14.5 % Platelet Count 289 130-400 10^3/uL Mean Platelet Volume 10.5 H 7.4-10.4 FL Neutrophils (%) (Auto) 67 42-75 % Lymphocytes (%) (Auto) 24 12-44 % Monocytes (%) (Auto) 6 0-12 % Eosinophils (%) (Auto) 3 0-10 % Basophils (%) (Auto) 0 0-10 % Neutrophils # (Auto) 5.4 1.8-7.8 X 10^3 Lymphocytes # (Auto) 1.9 1.0-4.0 X 10^3 Monocytes # (Auto) 0.5 0.0-1.0 X 10^3 Eosinophils # (Auto) 0.2 0.0-0.3 10^3/uL Basophils # (Auto) 0.0 0.0-0.1 10^3/uL Sodium Level 140 135-145 MMOL/L Potassium Level 4.2 3.6-5.0 MMOL/L Chloride Level 106 98-107 MMOL/L Carbon Dioxide Level 21 21-32 MMOL/L Anion Gap 13 5-14 MMOL/L Blood Urea Nitrogen 20 H 7-18 MG/DL Creatinine 1.58 H 0.60-1.30 MG/DL Estimat Glomerular Filtration Rate 34 BUN/Creatinine Ratio 13 Glucose Level 114 H 70-105 MG/DL Calcium Level 8.7 8.5-10.1 MG/DL Total Bilirubin 0.3 0.1-1.0 MG/DL Aspartate Amino Transf (AST/SGOT) 20 5-34 U/L Alanine Aminotransferase (ALT/SGPT) 38 0-55 U/L Alkaline Phosphatase 58 40-136 U/L C-Reactive Protein High Sensitivity 1.28 H 0.00-0.50 MG/DL Total Protein 7.0 6.4-8.2 GM/DL Albumin 3.6 3.2-4.5 GM/DL Maritza Gould - ST[facility] WILL[facility] Cbc With Automated Diff (06/18/17 19:13) Comprehensive Metabolic Panel (06/18/17 19:13) Hs C Reactive Protein (06/18/17 19:13) Saline Lock/Iv-Start (06/18/17 19:13) Vital Signs/I&O Vital Sign - Last 12Hours 06/18/17 18:30 Temp 98.4 Pulse 90 Resp 18 B/P (MAP) 141/99 Pulse Ox 95 Blood Pressure Mean: 113 Departure Impression Impression: Primary Impression: Cellulitis of left lower extremity without foot Disposition: HOME, SELF-CARE Condition: Improved Departure-Patient Inst. Decision time for Depature: 20:18 Referrals: [facility] (PCP/Family) Primary Care Physician Patient Instructions: Cellulitis (Skin Infection), Adult (DC) Add. Discharge Instructions: All discharge instructions reviewed with patient and/or family. Voiced understanding. Medications as instructed. Continue home medications including morphine for pain. Follow-up with Nabil Abdi APRN for recheck in the next 1-2 days. Elevate the left leg on pillows above the level of the heart. Shower with antibacterial soap. Return to the emergency department for worsened redness, fever, drainage, or any other concerns. Scripts Clindamycin HCl (Clindamycin HCl) 300 Mg Capsule 300 MG PO QID, #40 CAP 0 Refills Prov: STAR WILLIS 06/18/17 STAR WILLIS Jun 18, 2017 18:59
[2017-06-18 19:41] LABS: BASOPHILS % (AUTO) 0 % (0-10); EOSINOPHILS # (AUTO) 0.2 10^3/uL (0.0-0.3); EOSINOPHILS % (AUTO) 3 % (0-10); LYMPHOCYTES # (AUTO) 1.9 X 10^3 (1.0-4.0); LYMPHOCYTES % (AUTO) 24 % (12-44); MEAN CORPUSCULAR HEMOGLOBIN 30 PG (25-34); MEAN CORPUSCULAR HGB CONC 33 G/DL (32-36); MEAN CORPUSCULAR VOLUME 90 FL (80-99); MEAN PLATELET VOLUME 10.5 FL (7.4-10.4); MONOCYTES # (AUTO) 0.5 X 10^3 (0.0-1.0); MONOCYTES % (AUTO) 6 % (0-12); NEUTROPHILS # (AUTO) 5.4 X 10^3 (1.8-7.8); NEUTROPHILS % (AUTO) 67 % (42-75); PLATELET COUNT 289 10^3/uL (130-400); RED BLOOD COUNT 4.36 10^6/uL (4.35-5.85); RED CELL DISTRIBUTION WIDTH 13.5 % (10.0-14.5)
[2017-06-18 19:59] LABS: ALBUMIN 3.6 GM/DL (3.2-4.5); BILIRUBIN,TOTAL 0.3 MG/DL (0.1-1.0); CALCIUM 8.7 MG/DL (8.5-10.1); CREATININE SERUM 1.58 MG/DL (0.60-1.30); POTASSIUM 4.2 MMOL/L (3.6-5.0); hs C REACTIVE PROTEIN 1.28 MG/DL (0.00-0.50)
[2017-06-18] MEDS ORDERED: CLIN300C11 PO (20:18)
[2017-06-18] MEDS ORDERED: oxyCODONE/APAP 5/325MG (PERCOCET 5) TABLET PO STA (20:20)
[2017-06-18] MEDS ORDERED: CLINDAMYCIN INJECTION 900 MG in NS (IVPB) 50 ML IV ONE (20:30)
[2017-06-18 21:14] VITALS: BP 141/99
== END 2017-06-18 21:14 | disposition home or self-care (01) ==
LOC: EDUNIT# 18:00 → ER 18:03
DX: L03.116 Cellulitis of left lower limb (principal); J43.9 Emphysema, unspecified; I73.9 Peripheral vascular disease, unspecified; I10 Essential (primary) hypertension; G40.909 Epilepsy, unspecified, not intractable, without status epilepticus; I25.2 Old myocardial infarction; I25.10 Atherosclerotic heart disease of native coronary artery without angina pectoris; K21.9 Gastro-esophageal reflux disease without esophagitis; F31.9 Bipolar disorder, unspecified; D64.9 Anemia, unspecified; M19.90 Unspecified osteoarthritis, unspecified site; F41.9 Anxiety disorder, unspecified; I42.9 Cardiomyopathy, unspecified; Z87.820 Personal history of traumatic brain injury; Z87.19 Personal history of other diseases of the digestive system; Z82.49 Family history of ischemic heart disease and other diseases of the circulatory system; Z85.41 Personal history of malignant neoplasm of cervix uteri; Z90.710 Acquired absence of both cervix and uterus; Z87.442 Personal history of urinary calculi; Z87.448 Personal history of other diseases of urinary system; Z87.59 Personal history of other complications of pregnancy, childbirth and the puerperium; Z87.09 Personal history of other diseases of the respiratory system
CPT/HCPCS: 36415; 80053; 85025; 86141; 96365

== ENCOUNTER 2018-02-20 20:45 | Observation (INO) | payer MEDICAID ==
[~2018-02-20] VITALS: Ht 160 cm; Wt 78.5 kg
[~2018-02-20 20:45] MED LIST changes: +CLIN300C11 PO; -METO-272; +METO-370
[2018-02-20] MEDS ORDERED: RT-ALBUTEROL/IPRATROPIUM 3 ML (DUONEB) VIAL ONE (20:56)
[2018-02-20] MEDS ORDERED: NS IV 1000 ML 1,000 ML IV ONE (20:59)
[2018-02-20] MEDS ORDERED: RT-ALBUTEROL/IPRATROPIUM 3 ML (DUONEB) VIAL INH ONE (21:00)
--- OUTSIDE RECORDS SUMMARY | 2018-02-20 21:03 | XMS REPORT ---
Author Author TRACEE LANGE Organization [facility] Address [address] [place] [address] Care Team Providers Care [employer] Name Role Phone TRACEE LANGE Unavailable PROBLEMS Type Condition ICD9-CM Code VCX82-MY Code Onset Dates Condition Status SNOMED Code Problem Intracranial injury, without loss of consciousness, subsequent encounter S06.9X0D Active 620715180 Problem Epileptic seizure, generalized G40.309 Active 80794204 Problem GERD (gastroesophageal reflux disease) K21.9 Active 911097931 Problem Lumbar neuritis M54.16 Active 545021010 Problem Thoracic neuritis M54.14 Active 00648713 Problem Cardiomyopathy I42.9 Active 53899251 Problem Hypertension, benign I10 Active 49125602 ALLERGIES No Known Allergies ENCOUNTERS Encounter Location Date Diagnosis [place] [address] [address] February, [place] [address] [address] Dec, Thoracic neuritis M54.14 ; Lumbar neuritis M54.16 and Epileptic seizure, generalized G40.309 [place] [address] [place] [id number] [place] [address] 64687- 5575 Sep, Epileptic seizure, generalized G40.309 and Lumbar neuritis M54.16 [place] [address] [place] [id number] [place] [address] 99938- 5348 Aug, Thoracic neuritis M54.14 and Lumbar neuritis M54.16 [place] [address] [address]- [address] Jun, [place] [address] [address]- [address] Jun, Abscess of leg, left L02.416 [facility] [address] [place] [id number] [place] [address] 15439- 3768 May, Lumbar neuritis M54.16 ; Thoracic neuritis M54.14 ; Intracranial injury, without loss of consciousness, subsequent encounter S06.9X0D and Cardiomyopathy I42.9 [facility] [address] [place] [id number] [place] [address] 03398- 8442 Apr, Lumbar neuritis M54.16 [facility] [address] [address]- [address] Apr, [facility] [address] [address]- 2824 Apr, Elevated liver enzymes R74.8 and Renal insufficiency N28.9 [facility] [address] [place] [id number] [place] [address] 47278- 0248 Apr, Lumbar neuritis M54.16 ; Thoracic neuritis M54.14 ; Hypertension, benign I10 ; Cardiomyopathy I42.9 and Epileptic seizure, generalized G40.309 [facility] [address] [place] [id number] [place] [address] 23401- 6160 Mar, [place] [address] 613[address]- 1012 February, [facility] [address] [place] [id number] [place] [address] 82807- 8837 February, Lumbar neuritis M54.16 ; Thoracic neuritis M54.14 ; Hypertension, benign I10 ; Cardiomyopathy I42.9 and Epileptic seizure, generalized G40.309 [facility] [address] [place] [id number] [place] [address] 69577- 8846 Dec, [facility] [address] 86337- 9603 Sep, Epigastric mass R19.06 [facility] [address] [place] [id number] [place] [address] 83034- 8033 Sep, Epigastric mass R19.06 [place] [address] 31938- 8998 Sep, [facility] [address] [address]11- 0944 Sep, Epigastric mass R19.06 [facility] [address] 87958- 5232 Sep, Epigastric mass R19.06 and Lung mass R91.8 [facility] [address] [address] -[address] Jul, Shortness of breath R06.02 ; Dysuria R30.0 and Acute bronchitis, unspecified organism J20.9 [place] [address] 12921- 1030 Jul, [place] [address] 23793- 3904 Jun, Seizures R56.9 ; Thoracic neuritis M54.14 ; Lumbar neuritis M54.16 and GERD (gastroesophageal reflux disease) K21.9 [facility] [address] [address] Jan, [place] [address] 38749- 9301 Sep, [address] [address]- 4827 Sep, Intracranial injury, without loss of consciousness, subsequent encounter S06.9X0D ; Cardiomyopathy I42.9 ; GERD (gastroesophageal reflux disease) K21.9 ; Hypertension, benign I10 ; Thoracic neuritis M54.14 and Lumbar neuritis M54.16 [place] [address] 00030- 3764 Mar, [facility] [address] [address]12- 2806 Mar, Coronary atherosclerosis of unspecified type of vessel, [place] or graft 414.00 ; Unspecified essential hypertension 401.9 ; Thoracic or lumbosacral neuritis or radiculitis, unspecified 724.4 and Other convulsions 780.39 [facility] [address] [place] [id number] [place] [address] 50709- 7458 14 Jan, 2015 [facility] [address] [place] [id number] [place] [address] 43666- 7898 Jan, [facility] [address] [place] [id number] [place] [address] 08096- 8268 Nov, [facility] [address] [place] [id number] [place] [address] 62189- 2268 Nov, [facility] [address] [place] [id number] [place] [address] 19917- 8617 Nov, [facility] [address] [place] [id number] [place] [address] 82303- 4240 Nov, [facility] [address] [place] [id number] [place] [address] 36173- 1304 Nov, [facility] [address] [place] [id number] [place] [address] 92681- 0082 Nov, [facility] [address] [place] [id number] [place] [address] 21793- 7821 Nov, [facility] [id number] [place] [address] 19215- 6063 Nov, [facility] [address] [address]- 5343 Nov, [facility] [address] [place] [id number] [place] [address] 49968- 5881 Nov, [facility] [address] [place] [id number] 477[address] Sep, [facility] [address] [address] Sep, [facility] [place] [facility] [address] [id number] [place] [address]- 9274 Aug, [facility] [place] [facility] [address] [id number] [place] [address]- 9038 Aug, [facility] [place] [facility] [address] [id number] [place] [address]- 4315 Aug, [facility] [place] [facility] [address] [id number] [place] [address]- 3753 Aug, [facility] [place] [facility] [address] [id number] [place] [address]- 6876 Jul, [facility] [place] [facility] [address] [id number] [place] [address]- 1844 Jul, [facility] [place] [facility] [address] [id number] [place] [address]- 5782 Jul, [facility] [place] [facility] [address] [id number] [place] [address]- 7473 Jul, [facility] [place] [facility] [address] [id number] [place] [address]- 4463 Jun, [facility] [place] [facility] [address] [id number] [place] [address]- 7444 Jun, [facility] [place] [facility] [address] [id number] [place] [address]- 2745 Jun, [facility] [place] [facility] [address] [id number] [place] [address]- 2285 May, [facility] [place] [facility] [address] [id number] [place] [address]- 9840 May, [facility] [place] [facility] [address] [id number] [place] [address]- 3511 May, [facility] [place] [facility] [address] [id number] [place] [address]- 3021 May, [facility] [place] [facility] [address] [id number] [place] [address]- 2376 May, [facility] [place] [facility] [address] [id number] [place] [address]- 5459 May, [facility] [place] [facility] [address] [id number] [place] [address]- 5928 May, [facility] [place] [facility] [address] [id number] [place] [address]- 9993 May, [facility] [place] [facility] [address] [id number] [place] [address]- 9935 February, [facility] [place] [facility] [address] [id number] [place] [address]- 1875 February, [facility] [place] [facility] [address] [id number] [place] [address]- 8448 Jan, [facility] [place] [facility] [address] [id number] [place] [address]- 5812 Jan, [facility] [place] [facility] [address] [id number] [place] [address]- 8144 Jan, [facility] [place] [facility] [address] [id number] [place] [address]- 2217 Jan, [facility] [place] [facility] [address] [id number] [place] [address]- 5670 Nov, [facility] [place] [facility] [address] [id number] [place] [address]- 7575 Nov, [facility] [place] [facility] [address] [id number] [place] [address]- 5488 Nov, [facility] [place] [facility] [address] [id number] [place] 4934 Nov, [facility] [place] [facility] [address] [id number] [place] 9187 Sep, [facility] [place] [facility] [address] [id number] [place] 4885 Sep, [facility] [place] [facility] [address] [id number] [place] [address]- 1557 07 Sep, 2013 [facility] [address] [id number] [place] [address]- 7228 Sep, [facility] [address] [id number] [place] [address]- 7496 Sep, [facility] [address] [id number] [place] [address]- 9919 Sep, [facility] [address] [id number] [place] [address]- 7571 Jul, [facility] [address] [id number] [place] [address]- 2226 Jul, [facility] [address] [id number] [place] [address]- 4687 Jun, [facility] [address] [id number] [place] [address]- 2452 Jun, [facility] [address] [id number] [place] [address]- 7059 Jun, [facility] [address] [id number] [place] [address]- 4976 May, [address] [id number] May [facility] [address] [id number] [place] [address]- 4242 May, [facility] [address] [id number] [place] [address]- 7478 May, [facility] [address] [id number] [place] [address]- 4580 May, [facility] [address] [id number] [place] [address]- 2751 May, [facility] [address] [id number] [place] [address]- 9255 May, [facility] [address] [id number] [place] [address]- 7324 Apr, [facility] [address] [id number] [place] [address]- 5033 Apr, [facility] [place] [facility] [address] [id number] [place] [address]- 9635 Apr, [facility] [place] [facility] [address] [id number] [place] [address]- 3704 Apr, [facility] [place] [facility] [address] [id number] [place] [address]- 0992 Mar, [facility] [place] [facility] [address] [id number] [place] [address]- 6584 February, [facility] [address] [id number] [place] [address]- 8595 Jan, [facility] [address] [id number] [place] [address]- 8734 Dec, [facility] [place] [facility] [address] [id number] [place] [address]- 2565 Dec, [facility] [place] [facility] [address] [id number] [place] [address]- 5802 Dec, [facility] [place] [facility] [address] [id number] [place] [address]- 8992 Nov, [facility] [place] [facility] [address] [id number] [place] [address]- 6644 Nov, [facility] [place] [facility] [address] [id number] [place] [address]- 7813 Nov, [facility] [place] [facility] [address] [id number] [place] [address]- 9490 Oct, [facility] [place] [facility] [address] [id number] [place] [address]- 1073 Oct, [facility] [place] [facility] [address] [id number] [place] [address]- 8578 Sep, [facility] [place] [facility] [address] [id number] [place] [address]- 0841 Sep, [facility] [place] [facility] [address] [id number] [place] [address]- 2196 Sep, [facility] [place] [facility] [address] [id number] [place] [address]- 6973 Sep, [facility] [place] [facility] [address] [id number] [place] [address]- 9939 Sep, [facility] [place] [facility] [address] [id number] [place] [address]- 5185 Sep, [facility] [place] [facility] [address] [id number] [place] [address]- 4681 Aug, [facility] [place] [facility] [address] [id number] [place] [address]- 9600 Aug, [facility] [place] [facility] [address] [id number] [place] [address]- 5281 Aug, [facility] [place] [facility] [address] [id number] [place] [address]- 8300 Aug, [facility] [place] [facility] [address] [id number] [place] [address]- 2059 Aug, [facility] [place] [facility] [address] [id number] [place] [address]- 0100 Aug, [facility] [place] [facility] [address] [id number], [place] [address]- 5243 Aug, [facility] [place] [facility] [address] [id number] [place] [address]- 6306 Aug, [facility] [place] [facility] [address] [id number] [place] [address]- 9674 Aug, [facility] [place] [facility] [address] [id number] [place] [address]- 3828 Aug, [facility] [place] [facility] [address] [id number] [place] [address]- 6496 Jul, 2011 [facility] [place] [facility] [address] [id number] [place] [address]- 1057 Jul, 2011 [facility] [place] [facility] [address] [id number] [place] [address]- 6271 Jul, 2011 [facility] [place] [facility] [address] [id number] [place] [address]- 2622 Jul, 2011 [facility] [place] [facility] [address] [id number] [place] [address]- 7894 Jul, 2011 [facility] [place] [facility] [address] [id number] [place] [address]- 2432 Jul, 2011 [facility] [place] [facility] [address] [id number] [place] [address]- 6342 Jul, 2011 [facility] [place] [facility] [address] [id number] [place] [address]- 1008 Jul, [facility] [place] [facility] [address] [id number] [place] [address]- 5430 18 Jul, 2012 [facility] [place] [facility] [address] [id number] [place] [address]- 2092 Jul, [facility] [place] [facility] [address] [id number] [place] [address]- 2710 Jul, [facility] [place] [facility] [address] [id number] [place] [address]- 4297 Jul, 2011 [facility] [place] [facility] [address] [id number] [place] [address]- 2497 Jul, 2011 [facility] [place] [facility] [address] [id number] [place] [address]- 8257 Jul, [facility] [place] [facility] [address] [id number] [place] [address]- 0436 Jul, [facility] [place] [facility] [address] [id number] [place] 7902 Jun, [facility] [place] [facility] [address] [id number] [place] [address]- 0605 24 Jun, 2012 [facility] [place] [facility] [address] [id number] [place] [address]- 6696 Jun, [facility] [place] [facility] [address] [id number] [place] [address]- 5165 May, [facility] [place] [facility] [address] [id number] [place] [address]- 6404 May, [facility] [place] [facility] [address] [id number] [place] [address]- 3314 Mar, [facility] [place] [facility] [address] [id number] [place] [address]- 0886 Mar, [facility] [place] [facility] [address] [id number] [place] [address]- 7390 February, [facility] [place] [facility] [address] [id number] [place] [address]- 9047 February, [facility] [place] [facility] [address] [id number] [place] [address]- 3647 Nov, [facility] [place] [facility] [address] [id number] [place] [address]- 0681 Oct, [facility] [place] [facility] [address] [id number] [place] [address]- 2800 Oct, [facility] [place] [facility] [address] [id number], [place] [address]- 0478 Oct, [facility] [place] [facility] [address] [id number] [place] [address]- 9680 Aug, [facility] [place] [facility] [address] [id number] [place] [address]- 3946 Jul, [facility] [place] [facility] [address] [id number] [place] [address]- 6648 Sep, [facility] [place] [facility] [address], [place] [address]- 3096 08 Aug, 2010 [facility] [address], [place] [address]- 3997 Jul, [facility] [address], [place] [address]- 2739 Apr, [facility] [address] [address]- 4557 February, [facility] [address], [place] [address]- 5634 Sep, [facility] [id number] [place] [address] 76439- 3493 Sep, [facility] [id number] [place] [address] 31799- 5805 Sep, [facility] [address] [place] [id number] [place] [address] 90458- 8472 Apr, [facility] [id number] [place] [address] 88259- 4063 Mar, [facility] [id number] [place] [address] 26253- 2925 February, [facility] [address], [place] [address]- 6779 Jan, [facility] [address], [place] [address]- 2172 Jul, IMMUNIZATIONS No Known Immunizations SOCIAL HISTORY Never Assessed REASON FOR VISIT Via [facility] follow-up--Chon Montgomery MA PLAN OF CARE VITAL SIGNS Height 63 in 2017-06-23 Weight 186.4 lbs 2017-06-23 Temperature 97.8 degrees Fahrenheit 2017-06-23 Heart Rate 84 bpm 2017-06-23 Respiratory Rate 22 2017-06-23 BMI 33.02 kg/m2 2017-06-23 Blood pressure systolic 136 mmHg 2017-06-23 Blood pressure diastolic 98 mmHg 2017-06-23 MEDICATIONS Medication Instructions Dosage Frequency Start Date End Date Duration Status Advair Diskus 100 mcg-50 mcg Inhalation Twice a day 1 puff 12h 09 Nov, 2014 Active Flexeril 10 mg 1 tablet 12h 13 May, 2014 Active ProAir HFA 108 (90 Base) MCG/ACT Inhalation every 4 hrs 2 puffs as needed 4h 31 Jul, 2016 Active MS Contin 30 MG 1 tablet 12h Jun, Active Phenobarbital 97.2 mg 1 tablet 24h 24 Feb, 2014 Active Morphine Sulfate 15 MG Orally 2 times a day 1 tablet as needed 12h Jun, Active Aspirin 650 mg 1 Tablet by Oral route 6 times per hour Nov, Active Protonix 40 mg Orally Once a day 1 tablet 24h 15 Sep, 2015 Active Metoprolol Tartrate 50 mg Orally Twice a day 1 tablet with food 12h Sep 30 day(s) Active Reglan 10 mg Orally 4 times a day 1 tablet 6h Jun, Active Scooter N/A as directed May, Active Melatonin 3 MG Orally at bedtime 3 tablet at bedtime as needed with food Active RESULTS No Results PROCEDURES No Known procedures INSTRUCTIONS MEDICATIONS ADMINISTERED No Known Medications MEDICAL (GENERAL) HISTORY Type Description Date Medical History Post-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/2013-ejection fraction 30 % Medical History Chronic Obstructive pulmonary disease Medical History Hernia-repaired Medical History Hyperactive bladder Medical History [id number] 03/2011-6.1 % Medical History Epilepsy and recurrent seizures Medical History Hx of substance abuse Medical History Hx of Hep C-negative viral load 07/2012 Medical History Hemoglobin A1c 07/10/2012-5.8% Medical History Coronary angiography was performed 09/2011-Normal Surgical History Otolaryngologic surgery tympanostomy tubes Surgical History Tonsillectomy adenoids Surgical History Partial colectomy Surgical History Genito-urinary tract surgery bladder suspension, ureteral stent placement and removal Surgical History Hysterectomy Surgical History Hospitalization History Admitted for AECB; re-admitted for pulmonary edema resulting in respiratory failure which improved with diuresis 03/2011 Hospitalization History Chest Pain- diagnosed with chest wall pain and GERD ( Heart Cath negative) 10/10/2011
--- OUTSIDE RECORDS SUMMARY | 2018-02-20 21:03 | XMS REPORT | Clinical Summary ---
Author Author [facility] Organization [facility] Address Unknown Phone Unavailable Care Team Providers Care Preschool Teacher Aide Name Role Phone Sander Bates Unavailable Anita Lopez MD Unavailable Joshua Lynch MD Unavailable Sherice Laurent DO PCP Armin Ventura MD Unavailable Flory Kim RN Unavailable Unavailable Zaynab Zhang MD Unavailable Unavailable Source Comments Some departments are not documenting in the electronic medical record. If you do not see the information that you expected, contact Release of Information in the Health Information Management department at [phone] for further assistance in locating additional records.[facility] Allergies Active Allergy Reactions Severity Noted [...] Taken Blood Pressure 110/80 11/11/2014 1:07 PM LINE DRIVER Pulse 72 11/11/2014 1:07 PM LINE DRIVER Temperature 36.5 C (97.7 F) 11/11/2014 1:07 PM LINE DRIVER Respiratory Rate 16 11/11/2014 1:07 PM LINE DRIVER Oxygen Saturation 94% 09/21/2014 7:45 AM LINE DRIVER Inhaled Oxygen - - Concentration Weight 82.1 kg (181 lb) 11/11/2014 1:07 PM LINE DRIVER Height 160 cm (5' 3") 11/11/2014 1:07 PM LINE DRIVER Body Mass Index 32.06 11/11/2014 1:07 PM LINE DRIVER Plan of Treatment Health Maintenance Due Date Last Done Comments PHYSICAL (COMPREHENSIVE) 1967 EXAM PERTUSSIS VACCINE 1971 TETANUS VACCINE 1977 CERVICAL CANCER SCREENING 1990 BREAST CANCER SCREENING 2000 COLORECTAL CANCER 2010 SCREENING INFLUENZA VACCINE 07/13/2018 07/12/2014 HEPATITIS C SCREENING Completed 06/11/2014, 06/11/2014, 06/10/2014 HIV SCREENING Completed 06/11/2014 Results Not on filefrom Last 3 Months
--- OUTSIDE RECORDS SUMMARY | 2018-02-20 21:04 | XMS REPORT ---
Author Author TRACEE LANGE Organization [facility] Address [address] [place] [address] Care Team Providers Care Auto Camp Attendant Name Role Phone TRACEE LANGE Unavailable PROBLEMS Type Condition ICD9-CM Code PBV67-EF Code Onset Dates Condition Status SNOMED Code Problem Intracranial injury, without loss of consciousness, subsequent encounter S06.9X0D Active 403394509 Problem Epileptic seizure, generalized G40.309 Active 81967060 Problem GERD (gastroesophageal reflux disease) K21.9 Active 249829995 Problem Lumbar neuritis M54.16 Active 437499897 Problem Thoracic neuritis M54.14 Active 96079028 Problem Cardiomyopathy I42.9 Active 42110867 Problem Hypertension, benign I10 Active 43865409 ALLERGIES No Known Allergies ENCOUNTERS Encounter Location Date Diagnosis [place] [address] [address] February, [place] [address] [address] Dec, Thoracic neuritis M54.14 ; Lumbar neuritis M54.16 and Epileptic seizure, generalized G40.309 [place] [address] [place] [id number] [place] [address] 68629- 2847 Sep, Epileptic seizure, generalized G40.309 and Lumbar neuritis M54.16 [place] [address] [place] [id number] [place] [address] 32663- 7784 Aug, Thoracic neuritis M54.14 and Lumbar neuritis M54.16 [place] [address] [address]- [address] Jun, [place] [address] [address]- [address] Jun, Abscess of leg, left L02.416 [facility] [address] [place] [id number] [place] [address] 82636- 8788 May, Lumbar neuritis M54.16 ; Thoracic neuritis M54.14 ; Intracranial injury, without loss of consciousness, subsequent encounter S06.9X0D and Cardiomyopathy I42.9 [facility] [address] [place] [id number] [place] [address] 03852- 7476 Apr, Lumbar neuritis M54.16 [facility] [address] [address]- [address] Apr, [facility] [address] 0[address]- 1678 Apr, Elevated liver enzymes R74.8 and Renal insufficiency N28.9 [facility] [address] [place] [id number] [place] [address] 08219- 1242 Apr, Lumbar neuritis M54.16 ; Thoracic neuritis M54.14 ; Hypertension, benign I10 ; Cardiomyopathy I42.9 and Epileptic seizure, generalized G40.309 [facility] [address] [place] [id number] [place] [address] 12143- 3624 Mar, [place] [address] 25231- 1831 February, [facility] [address] [place] [id number] [place] [address] 55855- 3184 February, Lumbar neuritis M54.16 ; Thoracic neuritis M54.14 ; Hypertension, benign I10 ; Cardiomyopathy I42.9 and Epileptic seizure, generalized G40.309 [facility] [address] [place] [id number] [place] [address] 59605- 5327 Dec, [facility] [address] 43979- 2386 Sep, Epigastric mass R19.06 [facility] [address] [place] [id number] [place] [address] 81740- 9007 Sep, Epigastric mass R19.06 [place] [address] 20036- 9632 Sep, [facility] [address] 58388- 1712 Sep, Epigastric mass R19.06 [facility] [address] 08697- 0833 Sep, Epigastric mass R19.06 and Lung mass R91.8 [facility] [address] [address] Jul, Shortness of breath R06.02 ; Dysuria R30.0 and Acute bronchitis, unspecified organism J20.9 [place] [address] 68589- 4899 Jul, [place] [address] 30083- 2857 Jun, Seizures R56.9 ; Thoracic neuritis M54.14 ; Lumbar neuritis M54.16 and GERD (gastroesophageal reflux disease) K21.9 [facility] [address] [address]77 Jan, [place] [address] 12827- 3946 Sep, [address] 0[address]- 90[address] Sep, Intracranial injury, without loss of consciousness, subsequent encounter S06.9X0D ; Cardiomyopathy I42.9 ; GERD (gastroesophageal reflux disease) K21.9 ; Hypertension, benign I10 ; Thoracic neuritis M54.14 and Lumbar neuritis M54.16 [place] [address] 91791- 7817 Mar, [facility] [address] 83305- 7350 Mar, Coronary atherosclerosis of unspecified type of vessel, [place] or graft 414.00 ; Unspecified essential hypertension 401.9 ; Thoracic or lumbosacral neuritis or radiculitis, unspecified 724.4 and Other convulsions 780.39 [facility] [address] [place] [id number] [place] [address] 52734- 2454 14 Jan, 2015 [facility] [address] [place] [id number] [place] [address] 66413- 7540 Jan, [facility] [address] [place] [id number] [place] [address] 37771- 8978 Nov, [facility] [address] [place] [id number] [place] [address] 56737- 8232 Nov, [facility] [address] [place] [id number] [place] [address] 95332- 6905 Nov, [facility] [address] [place] [id number] [place] [address] 23711- 0149 Nov, [facility] [address] [place] [id number] [place] [address] 62878- 2563 Nov, [facility] [address] [place] [id number] [place] [address] 23233- 3146 Nov, [facility] [address] [place] [id number] [place] [address] 05621- 1767 Nov, [facility] [address] [place] [address] 40818- 8091 Nov, [facility] [address] [address]- 0352 Nov, [facility] [address] [place] [id number] [place] [address] 48341- 5781 Nov, [facility] [address] [place] [id number] 6[address] Sep, [facility] [address] [address] Sep, [facility] [place] [facility] [address] [id number] [place] [address]- 1484 Aug, [facility] [place] [facility] [address] [id number] [place] [address]- 4589 Aug, [facility] [place] [facility] [address] [id number] [place] [address]- 7764 Aug, [facility] [place] [facility] [address] [id number] [place] [address]- 3333 Aug, [facility] [place] [facility] [address] [id number] [place] [address]- 9852 Jul, [facility] [place] [facility] [address] [id number] [place] [address]- 0187 Jul, [facility] [place] [facility] [address] [id number] [place] [address]- 5774 Jul, [facility] [place] [facility] [address] [id number] [place] [address]- 3395 Jul, [facility] [place] [facility] [address] [id number] [place] [address]- 7838 Jun, [facility] [place] [facility] [address] [id number] [place] [address]- 2911 Jun, [facility] [place] [facility] [address] [id number] [place] [address]- 9136 Jun, [facility] [place] [facility] [address] [id number] [place] [address]- 7308 May, [facility] [place] [facility] [address] [id number] [place] [address]- 3894 May, [facility] [place] [facility] [address] [id number] [place] [address]- 2786 May, [facility] [place] [facility] [address] [id number] [place] [address]- 4645 May, [facility] [place] [facility] [address] [id number] [place] [address]- 2775 May, [facility] [place] [facility] [address] [id number] [place] [address]- 7566 May, [facility] [place] [facility] [address] [id number] [place] [address]- 0566 May, [facility] [place] [facility] [address] [id number] [place] [address]- 1944 May, [facility] [place] [facility] [address] [id number] [place] [address]- 8747 February, [facility] [place] [facility] [address] [id number] [place] [address]- 6337 February, [facility] [place] [facility] [address] [id number] [place] [address]- 9210 Jan, [facility] [place] [facility] [address] [id number] [place] [address]- 6588 Jan, [facility] [place] [facility] [address] [id number] [place] [address]- 1828 Jan, [facility] [place] [facility] [address] [id number] [place] [address]- 8059 Jan, [facility] [place] [facility] [address] [id number] [place] [address]- 2363 Nov, [facility] [place] [facility] [address] [id number] [place] [address]- 7199 Nov, [facility] [place] [facility] [address] [id number] [place] [address]- 8674 Nov, [facility] [place] [facility] [address] [id number] [place] [address] Nov, [facility] [place] [facility] [address] [id number] [place] [address] Sep, [facility] [place] [facility] [address] [id number] [place] 1843 Sep, [facility] [place] [facility] [address] [id number] [place] [address]- 7613 07 Sep, 2013 [facility] [address] [id number] [place] [address]- 2504 Sep, [facility] [address] [id number] [place] [address]- 1696 Sep, [facility] [address] [id number] [place] [address]- 3740 Sep, [facility] [address] [id number] [place] [address]- 1440 Jul, [facility] [address] [id number] [place] [address]- 6559 Jul, [facility] [address] [id number] [place] [address]- 8355 Jun, [facility] [address] [id number] [place] [address]- 0136 Jun, [facility] [address] [id number] [place] [address]- 4981 Jun, [facility] [address] [id number] [place] [address]- 0738 May, [address] [id number] May [facility] [address] [id number] [place] [address]- 9247 May, [facility] [address] [id number] [place] [address]- 8202 May, [facility] [address] [id number] [place] [address]- 4211 May, [facility] [address] [id number] [place] [address]- 6476 May, [facility] [address] [id number] [place] [address]- 5396 May, [facility] [address] [id number] [place] [address]- 5382 Apr, [facility] [address] [id number] [place] [address]- 2206 Apr, [facility] [place] [facility] [address] [id number] [place] [address]- 4669 Apr, [facility] [place] [facility] [address] [id number] [place] [address]- 8934 Apr, [facility] [place] [facility] [address] [id number] [place] [address]- 9293 Mar, [facility] [place] [facility] [address] [id number] [place] [address]- 0219 February, [facility] [address] [id number] [place] [address]- 6776 Jan, [facility] [address] [id number] [place] [address]- 5682 Dec, [facility] [place] [facility] [address] [id number] [place] [address]- 4449 Dec, [facility] [place] [facility] [address] [id number] [place] [address]- 3724 Dec, [facility] [place] [facility] [address] [id number] [place] [address]- 0585 Nov, [facility] [place] [facility] [address] [id number] [place] [address]- 6847 Nov, [facility] [place] [facility] [address] [id number] [place] [address]- 5841 Nov, [facility] [place] [facility] [address] [id number] [place] [address]- 2069 Oct, [facility] [place] [facility] [address] [id number] [place] [address]- 5385 Oct, [facility] [place] [facility] [address] [id number] [place] [address]- 2066 Sep, [facility] [place] [facility] [address] [id number] [place] [address]- 7177 Sep, [facility] [place] [facility] [address] [id number] [place] [address]- 3676 Sep, [facility] [place] [facility] [address] [id number] [place] [address]- 0787 Sep, [facility] [place] [facility] [address] [id number] [place] [address]- 7838 Sep, [facility] [place] [facility] [address] [id number] [place] [address]- 6073 Sep, [facility] [place] [facility] [address] [id number] [place] [address]- 5158 Aug, [facility] [place] [facility] [address] [id number] [place] [address]- 6635 Aug, [facility] [place] [facility] [address] [id number] [place] [address]- 2299 Aug, [facility] [place] [facility] [address] [id number] [place] [address]- 0525 Aug, [facility] [place] [facility] [address] [id number] [place] [address]- 8804 Aug, [facility] [place] [facility] [address] [id number] [place] [address]- 4151 Aug, [facility] [place] [facility] [address] [id number], [place] [address]- 0784 Aug, [facility] [place] [facility] [address] [id number] [place] [address]- 9219 Aug, [facility] [place] [facility] [address] [id number] [place] [address]- 4797 Aug, [facility] [place] [facility] [address] [id number] [place] [address]- 7112 Aug, [facility] [place] [facility] [address] [id number] [place] [address]- 8188 Jul, 2011 [facility] [place] [facility] [address] [id number] [place] [address]- 3187 Jul, 2011 [facility] [place] [facility] [address] [id number] [place] [address]- 1023 Jul, 2011 [facility] [place] [facility] [address] [id number] [place] [address]- 0159 Jul, 2011 [facility] [place] [facility] [address] [id number] [place] [address]- 2145 Jul, 2011 [facility] [place] [facility] [address] [id number] [place] [address]- 7761 Jul, 2011 [facility] [place] [facility] [address] [id number] [place] [address]- 3056 Jul, 2011 [facility] [place] [facility] [address] [id number] [place] [address]- 8278 Jul, [facility] [place] [facility] [address] [id number] [place] [address]- 0615 18 Jul, 2012 [facility] [place] [facility] [address] [id number] [place] [address]- 5967 Jul, [facility] [place] [facility] [address] [id number] [place] [address]- 9562 Jul, [facility] [place] [facility] [address] [id number] [place] [address]- 4133 Jul, 2011 [facility] [place] [facility] [address] [id number] [place] [address]- 7640 Jul, 2011 [facility] [place] [facility] [address] [id number] [place] [address]- 3250 Jul, [facility] [place] [facility] [address] [id number] [place] [address]- 4072 Jul, [facility] [place] [facility] [address] [id number] [place] 1668 Jun, [facility] [place] [facility] [address] [id number] [place] [address]- 6367 24 Jun, 2012 [facility] [place] [facility] [address] [id number] [place] [address]- 1981 Jun, [facility] [place] [facility] [address] [id number] [place] [address]- 4819 May, [facility] [place] [facility] [address] [id number] [place] [address]- 7225 May, [facility] [place] [facility] [address] [id number] [place] [address]- 3147 Mar, [facility] [place] [facility] [address] [id number] [place] [address]- 9044 Mar, [facility] [place] [facility] [address] [id number] [place] [address]- 0114 February, [facility] [place] [facility] [address] [id number] [place] [address]- 1643 February, [facility] [place] [facility] [address] [id number] [place] [address]- 7540 Nov, [facility] [place] [facility] [address] [id number] [place] [address]- 3317 Oct, [facility] [place] [facility] [address] [id number] [place] [address]- 1304 Oct, [facility] [place] [facility] [address] [id number], [place] [address]- 7076 Oct, [facility] [place] [facility] [address] [id number] [place] [address]- 7013 Aug, [facility] [place] [facility] [address] [id number] [place] [address]- 8506 Jul, [facility] [place] [facility] [address] [id number] [place] [address]- 6085 Sep, [facility] [place] [facility] [address] [id number], [place] [address]- 2546 08 Aug, 2010 [facility] [address], [place] [address]- 2546 Jul, [facility] [address] [id number], [place] [address]- 2546 Apr, [facility] [address], [place] [address]- 2546 February, [facility] [address], [place] [address]- 2546 Sep, [facility] [address] [place] [address] 49197- 2546 Sep, [facility] [address], [place] [address]- 2546 Sep, [facility] [address], [place] [address]- 2546 Apr, [facility] [address], [place] [address]- 2546 Mar, [facility] [address], [place] [address]- 2546 February, [facility] [address], [place] [address]- 2546 Jan, [facility] [address] [id number], [place] [address]- 2546 Jul, IMMUNIZATIONS No Known Immunizations SOCIAL HISTORY Never Assessed REASON FOR VISIT scooter request reports walking in house from room to room or standing to cook takes a lot out of her. , wants to see about getting oxygen. Sats 98% , HR 115 after walking with walker to room. CBrumbackRN PLAN OF CARE Activity Details Follow Up 4 Weeks Reason:thoracic neuritis VITAL SIGNS Height 63 in 2017-06-02 Weight 189.8 lbs 2017-06-02 Temperature 97.9 degrees Fahrenheit 2017-06-02 Heart Rate 95 bpm 2017-06-02 Respiratory Rate 22 2017-06-02 Oximetry 98 % 2017-06-02 BMI 33.62 kg/m2 2017-06-02 Blood pressure systolic 146 mmHg 2017-06-02 Blood pressure diastolic 104 mmHg 2017-06-02 MEDICATIONS Medication Instructions Dosage Frequency Start Date End Date Duration Status Advair Diskus 100 mcg-50 mcg Inhalation Twice a day 1 puff 12h 09 Nov, 2014 Active MS Contin 30 MG 1 tablet 12h February, Active Morphine Sulfate 15 MG Orally 2 times a day 1 tablet as needed 12h February, Active Aspirin 650 mg 1 Tablet by Oral route 6 times per hour Nov, Active Phenobarbital 97.2 mg 1 tablet 24h February, Active Protonix 40 mg Orally Once a day 1 tablet 24h Sep, Active Scooter N/A as directed May, Active ProAir HFA 108 (90 Base) MCG/ACT Inhalation every 4 hrs 2 puffs as needed 4h 31 Jul, 2016 Active Metoprolol Tartrate 50 mg Orally Twice a day 1 tablet with food 12h Sep 30 day(s) Active Flexeril 10 mg 1 tablet 12h 13 May, 2014 Active Melatonin 3 MG Orally at bedtime 3 tablet at bedtime as needed with food Active Gabapentin 300 MG 1 capsule 8h Nov, Active RESULTS No Results PROCEDURES Procedure Date Ordered Result Body Site MEASURE BLOOD OXYGEN LEVEL Jun 02, 2017 INSTRUCTIONS MEDICATIONS ADMINISTERED No Known Medications MEDICAL (GENERAL) HISTORY Type Description Date Medical History 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
--- OUTSIDE RECORDS SUMMARY | 2018-02-20 21:04 | XMS REPORT ---
Author Author TRACEE LANGE Organization [facility] Address [address] [place] [address] Care Team Providers Care Career Orientation Teacher Name Role Phone TRACEE LANGE Unavailable PROBLEMS Type Condition ICD9-CM Code EZK52-FM Code Onset Dates Condition Status SNOMED Code Problem Intracranial injury, without loss of consciousness, subsequent encounter S06.9X0D Active 707649551 Problem Epileptic seizure, generalized G40.309 Active 42039147 Problem GERD (gastroesophageal reflux disease) K21.9 Active 628823283 Problem Lumbar neuritis M54.16 Active 875240409 Problem Thoracic neuritis M54.14 Active 70552145 Problem Cardiomyopathy I42.9 Active 59240720 Problem Hypertension, benign I10 Active 08599566 ALLERGIES No Information ENCOUNTERS Encounter Location Date Diagnosis [place] [address] [address] Jan, [place] [address] [address]- [address] Dec, Thoracic neuritis M54.14 ; Lumbar neuritis M54.16 and Epileptic seizure, generalized G40.309 [place] [address] [place] [id number] [place] [address]363- 0364 Sep, Epileptic seizure, generalized G40.309 and Lumbar neuritis M54.16 [place] [address] 64016- [address]853 Aug, Thoracic neuritis M54.14 and Lumbar neuritis M54.16 [place] [address] 72705- 4358 Jun, [place] [address] 21[address]- 6450 Jun, Abscess of leg, left L02.416 [facility] [address] [place] [id number] [place] [address] 98238- 3952 May, Lumbar neuritis M54.16 ; Thoracic neuritis M54.14 ; Intracranial injury, without loss of consciousness, subsequent encounter S06.9X0D and Cardiomyopathy I42.9 [facility] [address] [place] [id number] [place] [address] 49867- 8501 Apr, Lumbar neuritis M54.16 [facility] [address] [address]- [address] Apr, [facility] [address] [address]56- 5650 Apr, Elevated liver enzymes R74.8 and Renal insufficiency N28.9 [place] [address] [place] [id number] [place] [address] 29157- 4284 Apr, Lumbar neuritis M54.16 ; Thoracic neuritis M54.14 ; Hypertension, benign I10 ; Cardiomyopathy I42.9 and Epileptic seizure, generalized G40.309 [facility] [address] [place] [id number] [place] [address] 18240- 9627 Mar, [place] [address] [address]- [address]160 February, [facility] [address] [place] [id number] [place] [address] 01115- 7677 February, Lumbar neuritis M54.16 ; Thoracic neuritis M54.14 ; Hypertension, benign I10 ; Cardiomyopathy I42.9 and Epileptic seizure, generalized G40.309 [facility] [address] [place] [id number] [place] [address] 15324- 9576 Dec, [facility] [address] 74886- 6727 Sep, Epigastric mass R19.06 [facility] [address] [place] [id number] [place] [address] 27607- 7347 Sep, Epigastric mass R19.06 [place] [address] 63766- 6809 Sep, [place] [address] 18921- 8708 Sep, Epigastric mass R19.06 [place] [address] 92671- 5553 Sep, Epigastric mass R19.06 and Lung mass R91.8 [facility] [address] 16367 -3325 Jul, Shortness of breath R06.02 ; Dysuria R30.0 and Acute bronchitis, unspecified organism J20.9 [place] [address] 26624- 7772 Jul, [place] [address] 01487- 2213 Jun, Seizures R56.9 ; Thoracic neuritis M54.14 ; Lumbar neuritis M54.16 and GERD (gastroesophageal reflux disease) K21.9 [facility] [place] [address] 43267 -[address]354 Jan, [place] [address] 42403- 0129 Sep, [address] 8[address]- [address]262 Sep, Intracranial injury, without loss of consciousness, subsequent encounter S06.9X0D ; Cardiomyopathy I42.9 ; GERD (gastroesophageal reflux disease) K21.9 ; Hypertension, benign I10 ; Thoracic neuritis M54.14 and Lumbar neuritis M54.[address] 61623- 2715 Mar, [place] [address] 03901- 9983 Mar, Coronary atherosclerosis of unspecified type of vessel, [place] or graft 414.00 ; Unspecified essential hypertension 401.9 ; Thoracic or lumbosacral neuritis or radiculitis, unspecified 724.4 and Other convulsions 780.39 [facility] [address] [place] [id number] [place] [address] 11243- 7844 14 Jan, 2015 [facility] [address] [place] [id number] [place] [address] 59022- 3656 Jan, [facility] [address] [place] [id number] [place] [address] 69564- 6124 Nov, [facility] [address] [place] [id number] [place] [address] 44968- 2094 Nov, [facility] [address] [place] [id number] [place] [address] 21790- 1434 Nov, [facility] [address] [place] [id number] [place] [address] 37362- 5137 Nov, [facility] [address] [place] [id number] [place] [address] 87233- 6014 Nov, [facility] [id number] [place] [address] 30977- 2213 Nov, [facility] [id number] [place] [address] 19883- 8413 Nov, [facility] [address] [address] 8641 Nov, [facility] [address] [address] 6101 Nov, [facility] [address] [place] [id number] [place] [address] 22429- 6740 Nov, [facility] [address] [place] [id number] [address] Sep, [facility] [address] [address] Sep, [facility] [place] [facility] [address] [id number] [place] [address]- 6369 Aug, [facility] [place] [facility] [address] [id number] [place] [address]- 0404 Aug, [facility] [place] [facility] [address] [id number] [place] [address]- 9967 Aug, [facility] [place] [facility] [address] [id number] [place] [address]- 0882 Aug, [facility] [place] [facility] [address] [id number] [place] [address]- 6992 Jul, [facility] [place] [facility] [address] [id number] [place] [address]- 1683 Jul, [facility] [place] [facility] [address] [id number] [place] [address]- 4274 Jul, [facility] [place] [facility] [address] [id number] [place] [address]- 3103 Jul, [facility] [place] [facility] [address] [id number] [place] [address]- 5899 Jun, [facility] [place] [facility] [address] [id number] [place] [address]- 1948 Jun, [facility] [place] [facility] [address] [id number] [place] [address]- 4440 Jun, [facility] [place] [facility] [address] [id number] [place] [address]- 4387 May, [facility] [place] [facility] [address] [id number] [place] [address]- 9279 May, [facility] [place] [facility] [address] [id number] [place] [address]- 7730 May, [facility] [place] [facility] [address] [id number] [place] [address]- 8772 May, [facility] [place] [facility] [address] [id number] [place] [address]- 8032 May, [facility] [place] [facility] [address] [id number] [place] [address]- 3642 May, [facility] [place] [facility] [address] [id number] [place] [address]- 4902 May, [facility] [place] [facility] [address] [id number] [place] [address]- 4935 May, [facility] [place] [facility] [address] [id number] [place] [address]- 6344 February, [facility] [place] [facility] [address] [id number] [place] [address]- 6633 February, [facility] [place] [facility] [address] [id number] [place] [address]- 2154 Jan, [facility] [place] [facility] [address] [id number] [place] [address]- 5538 Jan, [facility] [place] [facility] [address] [id number] [place] [address]- 8630 Jan, [facility] [place] [facility] [address] [id number] [place] [address]- 5148 Jan, [facility] [place] [facility] [address] [id number] [place] [address]- 8195 Nov, [facility] [place] [facility] [address] [id number] [place] [address]- 1936 Nov, [facility] [place] [facility] [address] [id number] [place] [address]- 0342 Nov, [facility] [place] [facility] [address] [id number] [place] 1422 Nov, [facility] [place] [facility] [address] [id number] [place] [address]- 5428 Sep, [facility] [place] [facility] [address] [id number] [place] [address]- 5428 Sep, [facility] [place] [facility] [address] [id number] [place] [address]- 7545 07 Sep, 2013 [facility] [address] [id number] [place] [address]- 4551 Sep, [facility] [address] [id number] [place] [address]- 8981 Sep, [facility] [address] [id number] [place] [address]- 8590 Sep, [facility] [address] [id number] [place] [address]- 3003 Jul, [facility] [address] [id number] [place] [address]- 7148 Jul, [facility] [address] [id number] [place] [address]- 5316 Jun, [facility] [address] [id number] [place] [address]- 5887 Jun, [facility] [address] [id number] [place] [address]- 7147 Jun, [facility] [address] [id number] [place] [address]- 4005 May, [address] [id number] May [facility] [address] [id number] [place] [address]- 0539 May, [facility] [address] [id number] [place] [address]- 3820 May, [facility] [address] [id number] [place] [address]- 5123 May, [facility] [address] [id number] [place] [address]- 7114 May, [facility] [address] [id number] [place] [address]- 7282 May, [facility] [place] [facility] [address] [id number] [place] [address]- 3821 31 Apr, 2013 [facility] [address] [id number] [place] [address]- 2235 30 Apr, 2013 [facility] [place] [facility] [address] [id number] [place] [address]- 3612 Apr, [facility] [place] [facility] [address] [id number] [place] [address]- 3604 Apr, [facility] [place] [facility] [address] [id number] [place] [address]- 4585 Mar, [facility] [place] [facility] [address] [id number] [place] [address]- 5313 February, [facility] [place] [facility] [address] [id number] [place] [address]- 4537 Jan, [facility] [place] [facility] [address] [id number] [place] [address]- 8949 Dec, [facility] [place] [facility] [address] [id number] [place] [address]- 3824 Dec, [facility] [place] [facility] [address] [id number] [place] [address]- 1255 Dec, [facility] [place] [facility] [address] [id number] [place] [address]- 0574 Nov, [facility] [place] [facility] [address] [id number] [place] [address]- 1717 Nov, [facility] [place] [facility] [address] [id number] [place] [address]- 6457 Nov, [facility] [place] [facility] [address] [id number] [place] [address]- 3136 Oct, [facility] [place] [facility] [address] [id number] [place] [address]- 3001 Oct, [facility] [place] [facility] [address] [id number] [place] [address]- 2253 Sep, [facility] [place] [facility] [address] [id number] [place] [address]- 1146 Sep, [facility] [place] [facility] [address] [id number] [place] [address]- 3696 Sep, [facility] [place] [facility] [address] [id number] [place] [address]- 4026 Sep, [facility] [place] [facility] [address] [id number] [place] [address]- 6946 Sep, [facility] [place] [facility] [address] [id number] [place] [address]- 1875 Sep, [facility] [place] [facility] [address] [id number] [place] [address]- 1466 Aug, [facility] [place] [facility] [address] [id number] [place] [address]- 5154 Aug, [facility] [place] [facility] [address] [id number] [place] [address]- 9250 Aug, [facility] [place] [facility] [address] [id number] [place] [address]- 1139 Aug, [facility] [place] [facility] [address] [id number] [place] [address]- 0733 Aug, [facility] [place] [facility] [address] [id number] [place] [address]- 5170 Aug, [facility] [place] [facility] [address] [id number] [place] [address]- 9703 Aug, [facility] [place] [facility] [address] [id number] [place] [address]- 9966 Aug, [facility] [place] [facility] [address] [id number] [place] [address]- 6823 Aug, [facility] [place] [facility] [address] [id number] [place] [address]- 3720 Aug, [facility] [place] [facility] [address] [id number] [place] [address]- 0384 Jul, 2011 [facility] [place] [facility] [address] [id number] [place] [address]- 1974 Jul, 2011 [facility] [place] [facility] [address] [id number] [place] [address]- 4798 Jul, 2011 [facility] [place] [facility] [address] [id number] [place] [address]- 9742 Jul, [facility] [place] [facility] [address] [id number] [place] [address]- 5714 Jul, [facility] [place] [facility] [address] [id number] [place] [address], [place] [address]- 4805 Jul, [facility] [place] [facility] [address] [id number] [place] [address]- 7105 Jul, [facility] [place] [facility] [address] [id number] [place] [address]- 2923 Jul, [facility] [place] [facility] [address] [id number] [place] [address]- 3888 18 Jul, 2012 [facility] [place] [facility] [address] [id number] [place] [address]- 9295 Jul, [facility] [place] [facility] [address] [id number] [place] [address]- 0006 Jul, [facility] [place] [facility] [address] [id number] [place] [address]- 7492 Jul, [facility] [place] [facility] [address] [id number] [place] [address]- 5283 Jul, [facility] [place] [facility] [address] [id number] [place] [address]- 4948 Jul, [facility] [place] [facility] [address] [id number] [place] [address]- 1794 Jul, [facility] [place] [facility] [address] [id number] [place] [address]- 0188 Jun, [facility] [place] [facility] [address] [id number] [place] [address]- 3395 Jun, [facility] [place] [facility] [address] [id number] [place] [address]- 8334 Jun, [facility] [place] [facility] [address] [id number] [place] [address]- 4790 May, [facility] [place] [facility] [address] [id number] [place] [address]- 1336 May, [facility] [place] [facility] [address] [id number] [place] 5845 Mar, [facility] [place] [facility] [address] [id number] [place] [address]- 3436 Mar, [facility] [place] [facility] [address] [id number] [place] [address]- 1127 February, [facility] [place] [facility] [address] [id number] [place] [address]- 9473 February, [facility] [place] [facility] [address] [id number] [place] [address]- 7497 Nov, [facility] [place] [facility] [address] [id number] [place] [address]- 2958 Oct, [facility] [place] [facility] [address] [id number] [place] [address]- 0276 Oct, [facility] [place] [facility] [address] [id number] [place] [address]- 4262 Oct, [facility] [place] [facility] [address] [id number] [place] [address]- 3233 Aug, [facility] [place] [facility] [address] [id number] [place] [address]- 5276 Jul, [facility] [place] [facility] [address] [id number] [place] [address]- 8126 Sep, [facility] [place] [facility] [id number] [address] Aug, [facility] [address] [place] [address]- 1168 Jul, [facility] [address] [place] [id number] [place] [address] 04000- 4579 Apr, [facility] [address] [id number] [place] [address] 19514- 8794 February, [facility] [address] [id number] [place] [address] 50708- 1544 Sep, [facility] [id number] [place] [address] 70035- 0767 Sep, [facility] [address] [place] [id number] [place] [address] 75264- 9523 Sep, [facility] [id number] [place] [address] 70965- 4822 Apr, [facility] [id number] [place] [address] 26654- 6084 Mar, [facility] [address] [id number] [place] [address] 18499- 8047 February, [facility] [id number] [place] [address] 15288- 0508 Jan, 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
[2018-02-20] MEDS ORDERED: meTOproloL SUCCINATE 50 MG (TOPROL XL) TAB PO ONE (21:05)
--- OUTSIDE RECORDS SUMMARY | 2018-02-20 21:05 | XMS REPORT ---
Author Author TRACEE LANGE Organization [facility] Address [address] [place] [address] Care Team Providers Care Tobacco Prizer Name Role Phone TRACEE LANGE Unavailable PROBLEMS Type Condition ICD9-CM Code DHP50-PS Code Onset Dates Condition Status SNOMED Code Problem Intracranial injury, without loss of consciousness, subsequent encounter S06.9X0D Active 406672087 Problem Epileptic seizure, generalized G40.309 Active 19814999 Problem GERD (gastroesophageal reflux disease) K21.9 Active 616513278 Problem Lumbar neuritis M54.16 Active 841543157 Problem Thoracic neuritis M54.14 Active 77241393 Problem Cardiomyopathy I42.9 Active 16195882 Problem Hypertension, benign I10 Active 70011141 ALLERGIES No Information ENCOUNTERS Encounter Location Date Diagnosis [place] [address] [address] February, [place] [address] [address]- [address] Dec, Thoracic neuritis M54.14 ; Lumbar neuritis M54.16 and Epileptic seizure, generalized G40.309 [place] [address] [place] [id number] [place] [address] 89508- 9319 Sep, Epileptic seizure, generalized G40.309 and Lumbar neuritis M54.16 [place] [address] [place] [id number] [place] [address] 08602- 2519 Aug, Thoracic neuritis M54.14 and Lumbar neuritis M54.16 [place] [address] 8[address]80- 9562 Jun, [place] [address] [address]14- [address]95 Jun, Abscess of leg, left L02.416 [facility] [address] [place] [place] [id number] [place] [address] 70783- 2400 May, Lumbar neuritis M54.16 ; Thoracic neuritis M54.14 ; Intracranial injury, without loss of consciousness, subsequent encounter S06.9X0D and Cardiomyopathy I42.9 [facility] [address] [place] [place] [id number] [place] [address] 37453- 9370 Apr, Lumbar neuritis M54.16 [facility] [address] [address]- [address] Apr, [facility] [address] [address]62- 3629 Apr, Elevated liver enzymes R74.8 and Renal insufficiency N28.9 [place] [address] [place] [id number] [place] [address] 81940- 2642 Apr, Lumbar neuritis M54.16 ; Thoracic neuritis M54.14 ; Hypertension, benign I10 ; Cardiomyopathy I42.9 and Epileptic seizure, generalized G40.309 [facility] [address] [place] [place] [id number] [place] [address] 67403- 4768 Mar, [place] [address] 48761- 0479 February, [facility] [address] [place] [id number] [place] [address] 47439- 1017 February, Lumbar neuritis M54.16 ; Thoracic neuritis M54.14 ; Hypertension, benign I10 ; Cardiomyopathy I42.9 and Epileptic seizure, generalized G40.309 [facility] [address] [place] [place] [id number] [place] [address] 82016- 5454 Dec, [facility] [address] 53760- 4978 Sep, Epigastric mass R19.06 [facility] [address] [place] [place] [id number] [place] [address] 26294- 9537 Sep, Epigastric mass R19.06 [place] [address] 81596- 0849 Sep, [place] [address] 03227- 0038 Sep, Epigastric mass R19.06 [place] [address] 51211- 0232 Sep, Epigastric mass R19.06 and Lung mass R91.8 [facility] [address] [address] Jul, Shortness of breath R06.02 ; Dysuria R30.0 and Acute bronchitis, unspecified organism J20.9 [place] [address] 00940- 4456 Jul, [place] [address] 26852- 8892 Jun, Seizures R56.9 ; Thoracic neuritis M54.14 ; Lumbar neuritis M54.16 and GERD (gastroesophageal reflux disease) K21.9 [facility] [place] [address] 8[address] -[address]11 Jan, [place] [address] 51386- 8822 Sep, [address] [address]- 4[address] Sep, Intracranial injury, without loss of consciousness, subsequent encounter S06.9X0D ; Cardiomyopathy I42.9 ; GERD (gastroesophageal reflux disease) K21.9 ; Hypertension, benign I10 ; Thoracic neuritis M54.14 and Lumbar neuritis M54.[address] [address]- 2836 Mar, [place] [address] 73371- 6312 Mar, Coronary atherosclerosis of unspecified type of vessel, [place] or graft 414.00 ; Unspecified essential hypertension 401.9 ; Thoracic or lumbosacral neuritis or radiculitis, unspecified 724.4 and Other convulsions 780.39 [facility] [address] [place] [id number] [place] [address] 71874- 8944 14 Jan, 2015 [facility] [address] [place] [id number] [place] [address] 44813- 2009 Jan, [facility] [address] [place] [id number] [place] [address] 94201- 7178 Nov, [facility] [address] [place] [id number] [place] [address] 58267- 2091 Nov, [facility] [address] [place] [id number] [place] [address] 76160- 0692 Nov, [facility] [address] [place] [id number] [place] [address] 13898- 0517 Nov, [facility] [address] [place] [id number] [place] [address] 05256- 1418 Nov, [facility] [id number] [place] [address] 63619- 6455 Nov, [facility] [id number] [place] [address] 55775- 5157 Nov, [facility] [address] [address]- 9367 Nov, [facility] [address] [address]- 0005 Nov, [facility] [address] [place] [id number] [place] [address] 55212- 8298 Nov, [facility] [address] [place] [id number] [address] Sep, [facility] [address] [address] Sep, [facility] [place] [facility] [address] [id number] [place] [address]- 6109 Aug, [facility] [place] [facility] [address] [id number] [place] [address]- 9614 Aug, [facility] [place] [facility] [address] [id number] [place] [address]- 9532 Aug, [facility] [place] [facility] [address] [id number] [place] [address]- 4888 Aug, [facility] [place] [facility] [address] [id number] [place] [address]- 9582 Jul, [facility] [place] [facility] [address] [id number] [place] [address]- 8087 Jul, [facility] [place] [facility] [address] [id number] [place] [address]- 5088 Jul, [facility] [place] [facility] [address] [id number] [place] [address]- 1162 Jul, [facility] [place] [facility] [address] [id number] [place] [address]- 8218 Jun, [facility] [place] [facility] [address] [id number] [place] [address]- 2435 Jun, [facility] [place] [facility] [address] [id number] [place] [address]- 9720 Jun, [facility] [place] [facility] [address] [id number] [place] [address]- 5212 May, [facility] [place] [facility] [address] [id number] [place] [address]- 2833 May, [facility] [place] [facility] [address] [id number] [place] [address]- 0550 May, [facility] [place] [facility] [address] [id number] [place] [address]- 0538 May, [facility] [place] [facility] [address] [id number] [place] [address]- 1690 May, [facility] [place] [facility] [address] [id number] [place] [address]- 8446 May, [facility] [place] [facility] [address] [id number] [place] [address]- 9246 May, [facility] [place] [facility] [address] [id number] [place] [address]- 8827 May, [facility] [place] [facility] [address] [id number] [place] [address]- 1037 February, [facility] [place] [facility] [address] [id number] [place] [address]- 1360 February, [facility] [place] [facility] [address] [id number] [place] [address]- 6128 Jan, [facility] [place] [facility] [address] [id number] [place] [address]- 9769 Jan, [facility] [place] [facility] [address] [id number] [place] [address]- 4101 Jan, [facility] [place] [facility] [address] [id number] [place] [address]- 6884 Jan, [facility] [place] [facility] [address] [id number] [place] [address]- 6979 Nov, [facility] [place] [facility] [address] [id number] [place] [address]- 0836 Nov, [facility] [place] [facility] [address] [id number] [place] [address]- 4958 Nov, [facility] [place] [facility] [address] [id number] [place] 4495 Nov, [facility] [place] [facility] [address] [id number] [place] [address]- 4955 Sep, [facility] [place] [facility] [address] [id number] [place] [address]- 1813 Sep, [facility] [place] [facility] [address] [id number] [place] [address]- 3039 07 Sep, 2013 [facility] [address] [id number] [place] [address]- 6449 Sep, [facility] [address] [id number] [place] [address]- 9347 Sep, [facility] [address] [id number] [place] [address]- 7253 Sep, [facility] [address] [id number] [place] [address]- 4100 Jul, [facility] [address] [id number] [place] [address]- 3484 Jul, [facility] [address] [id number] [place] [address]- 8514 Jun, [facility] [address] [id number] [place] [address]- 1124 Jun, [facility] [address] [id number] [place] [address]- 0858 Jun, [facility] [address] [id number] [place] [address]- 3692 May, [address] [id number] May [facility] [address] [id number] [place] [address]- 9914 May, [facility] [address] [id number] [place] [address]- 1722 May, [facility] [address] [id number] [place] [address]- 9568 May, [facility] [address] [id number] [place] [address]- 9499 May, [facility] [address] [id number] [place] [address]- 4844 May, [facility] [place] [facility] [address] [id number] [place] [address]- 2490 31 Apr, 2013 [facility] [address] [id number] [place] [address]- 4873 30 Apr, 2013 [facility] [place] [facility] [address] [id number] [place] [address]- 4278 Apr, [facility] [place] [facility] [address] [id number] [place] [address]- 4934 Apr, [facility] [place] [facility] [address] [id number] [place] [address]- 1915 Mar, [facility] [place] [facility] [address] [id number] [place] [address]- 1369 February, [facility] [place] [facility] [address] [id number] [place] [address]- 3221 Jan, [facility] [place] [facility] [address] [id number] [place] [address]- 7347 Dec, [facility] [place] [facility] [address] [id number] [place] [address]- 1759 Dec, [facility] [place] [facility] [address] [id number] [place] [address]- 7674 Dec, [facility] [place] [facility] [address] [id number] [place] [address]- 2379 Nov, [facility] [place] [facility] [address] [id number] [place] [address]- 9647 Nov, [facility] [place] [facility] [address] [id number] [place] [address]- 4688 Nov, [facility] [place] [facility] [address] [id number] [place] [address]- 0311 Oct, [facility] [place] [facility] [address] [id number] [place] [address]- 6431 Oct, [facility] [place] [facility] [address] [id number] [place] [address]- 6641 Sep, [facility] [place] [facility] [address] [id number] [place] [address]- 9716 Sep, [facility] [place] [facility] [address] [id number] [place] [address]- 9996 Sep, [facility] [place] [facility] [address] [id number] [place] [address]- 8596 Sep, [facility] [place] [facility] [address] [id number] [place] [address]- 4703 Sep, [facility] [place] [facility] [address] [id number] [place] [address]- 7535 Sep, [facility] [place] [facility] [address] [id number] [place] [address]- 8991 Aug, [facility] [place] [facility] [address] [id number] [place] [address]- 1259 Aug, [facility] [place] [facility] [address] [id number] [place] [address]- 5592 Aug, [facility] [place] [facility] [address] [id number] [place] [address]- 1950 Aug, [facility] [place] [facility] [address] [id number] [place] [address]- 8476 Aug, [facility] [place] [facility] [address] [id number] [place] [address]- 9450 Aug, [facility] [place] [facility] [address] [id number] [place] [address]- 8446 Aug, [facility] [place] [facility] [address] [id number] [place] [address]- 6632 Aug, [facility] [place] [facility] [address] [id number] [place] [address]- 6071 Aug, [facility] [place] [facility] [address] [id number] [place] [address]- 3831 Aug, [facility] [place] [facility] [address] [id number] [place] [address]- 7972 Jul, 2011 [facility] [place] [facility] [address] [id number] [place] [address]- 0127 Jul, 2011 [facility] [place] [facility] [address] [id number] [place] [address]- 4150 Jul, 2011 [facility] [place] [facility] [address] [id number] [place] [address]- 2253 Jul, [facility] [place] [facility] [address] [id number] [place] [address]- 9512 Jul, [facility] [place] [facility] [address] [id number] [place] [address], [place] [address]- 6684 Jul, [facility] [place] [facility] [address] [id number] [place] [address]- 7968 Jul, [facility] [place] [facility] [address] [id number] [place] [address]- 4818 Jul, [facility] [place] [facility] [address] [id number] [place] [address]- 8536 18 Jul, 2012 [facility] [place] [facility] [address] [id number] [place] [address]- 0723 Jul, [facility] [place] [facility] [address] [id number] [place] [address]- 0720 Jul, [facility] [place] [facility] [address] [id number] [place] [address]- 3515 Jul, [facility] [place] [facility] [address] [id number] [place] [address]- 4438 Jul, [facility] [place] [facility] [address] [id number] [place] [address]- 7368 Jul, [facility] [place] [facility] [address] [id number] [place] [address]- 9048 Jul, [facility] [place] [facility] [address] [id number] [place] [address]- 3607 Jun, [facility] [place] [facility] [address] [id number] [place] [address]- 4801 Jun, [facility] [place] [facility] [address] [id number] [place] [address]- 9241 Jun, [facility] [place] [facility] [address] [id number] [place] [address]- 1658 May, [facility] [place] [facility] [address] [id number] [place] [address]- 9116 May, [facility] [place] [facility] [address] [id number] [place] [address]386 Mar, [facility] [place] [facility] [address] [id number] [place] [address]- 3336 Mar, [facility] [place] [facility] [address] [id number] [place] [address]- 3220 February, [facility] [place] [facility] [address] [id number] [place] [address]- 7662 February, [facility] [place] [facility] [address] [id number] [place] [address]- 4253 Nov, [facility] [place] [facility] [address] [id number] [place] [address]- 9178 Oct, [facility] [place] [facility] [address] [id number] [place] [address]- 8976 Oct, [facility] [place] [facility] [address] [id number] [place] [address]- 5255 Oct, [facility] [place] [facility] [address] [id number] [place] [address]- 5885 Aug, [facility] [place] [facility] [address] [id number] [place] [address]- 1226 Jul, [facility] [place] [facility] [address] [id number] [place] [address]- 9786 Sep, [facility] [place] [facility] [id number] [address]- 6943 08 Aug, 2010 [facility] [address] [address]- 4206 Jul, [facility] [address] [address]- 6766 14 Apr, 2010 [facility] [id number] [place] [address] 55757- 3947 February, [facility] [id number] [place] [address] 54076- 7260 Sep, [facility] [id number] [place] [address] 46201- 2293 Sep, [facility] [id number] [place] [address] 50855- 2655 Sep, [facility] [id number] [place] [address] 75499- 5229 Apr, [facility] [id number] [place] [address] 05617- 1857 Mar, [facility] [id number] [place] [address] 53389- 0866 February, [facility] [address], [place] [address]- 2452 Jan, [facility] [id number] [place] [address] 83906- 4976 Jul, IMMUNIZATIONS No Known Immunizations SOCIAL HISTORY Never Assessed REASON FOR VISIT Requests return call PLAN OF CARE VITAL SIGNS MEDICATIONS Unknown Medications RESULTS No Results PROCEDURES No Known procedures INSTRUCTIONS MEDICATIONS ADMINISTERED No Known Medications MEDICAL (GENERAL) HISTORY Type Description Date Medical History 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
--- OUTSIDE RECORDS SUMMARY | 2018-02-20 21:05 | XMS REPORT ---
Author Author TRACEE LANGE [facility] Address [address] [place] [address] Care Team Providers Care Embossing Machine Operator Name Role Phone TRACEE LANGE Unavailable PROBLEMS Type Condition ICD9-CM Code [id number] Code Onset Dates Condition Status SNOMED Code Problem Intracranial injury, without loss of consciousness, subsequent encounter S06.9X0D Active 410154599 Problem Epileptic seizure, generalized G40.309 Active 28000551 Problem GERD (gastroesophageal reflux disease) K21.9 Active 107990243 Problem Lumbar neuritis M54.16 Active 160312487 Problem Thoracic neuritis M54.14 Active 76694629 Problem Cardiomyopathy I42.9 Active 38324815 Problem Hypertension, benign I10 Active 41415337 ALLERGIES No Known Allergies SOCIAL HISTORY Never Assessed PLAN OF CARE VITAL SIGNS Height 63 in 2017-03-07 Weight 196.8 lbs 2017-03-07 Temperature 98.1 degrees Fahrenheit 2017-03-07 Heart Rate 76 bpm 2017-03-07 Respiratory Rate 22 2017-03-07 Oximetry 97 % 2017-03-07 BMI 34.86 kg/m2 2017-03-07 Blood pressure systolic 126 mmHg 2017-03-07 Blood pressure diastolic 80 mmHg 2017-03-07 MEDICATIONS Medication Instructions Dosage Frequency Start Date End Date Duration Status Metoprolol Tartrate 50 mg Orally Twice a day 1 tablet with food h Sep 30 day(s) Active Advair Diskus 100 mcg-50 mcg Inhalation Twice a day 1 puff 12h Nov, Active ProAir HFA 108 (90 Base) MCG/ACT Inhalation every 4 hrs 2 puffs as needed 4h 31 Jul, 2016 Active Flexeril 10 mg 1 tablet 12h May, Active Morphine Sulfate 15 MG Orally 2 times a day 1 tablet as needed h February, Active Gabapentin 300 MG 1 capsule 8h Nov, Active Protonix 40 mg Orally Once a day 1 tablet 24h Sep, Active MS Contin 30 MG 1 tablet 12h February, Active Aspirin 650 mg 1 Tablet by Oral route 6 times per hour 16 Nov, 2014 Active Phenobarbital 97.2 mg 1 tablet 24h February, Active RESULTS No Results PROCEDURES Procedure Date Ordered Result Body Site MEASURE BLOOD OXYGEN LEVEL March 07, 2017 THER/PROPH/DIAG INJ, SC/IM March 07, 2017 TORADOL (IM) 60 MG/2ML (UP TO 15 MG) March 07, 2017 IMMUNIZATIONS Vaccine Route Administration Date Status TORADOL (IM) 60 MG/2ML (UP TO 15 MG) IM Intramuscular March 07, 2017 Administered MEDICAL (GENERAL) HISTORY Type Description Date Medical History 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
--- OUTSIDE RECORDS SUMMARY | 2018-02-20 21:05 | XMS REPORT ---
Author Author TRACEE LANGE Organization [facility] Address [address] [place] [address] Care Team Providers Care Paperhanger Apprentice Name Role Phone TRACEE LANGE Unavailable PROBLEMS Type Condition ICD9-CM Code [id number] Code Onset Dates Condition Status SNOMED Code Problem Intracranial injury, without loss of consciousness, subsequent encounter S06.9X0D Active 793951990 Problem Epileptic seizure, generalized G40.309 Active 79805371 Problem GERD (gastroesophageal reflux disease) K21.9 Active 424575775 Problem Lumbar neuritis M54.16 Active 232233335 Problem Thoracic neuritis M54.14 Active 51186367 Problem Cardiomyopathy I42.9 Active 57611575 Problem Hypertension, benign I10 Active 99962369 ALLERGIES No Information SOCIAL HISTORY Never Assessed PLAN OF CARE VITAL SIGNS MEDICATIONS Medication Instructions Dosage Frequency Start Date End Date Duration Status Morphine Sulfate 15 mg Orally every 4 hrs 1 tablet as needed 4h February, Active RESULTS No Results PROCEDURES No Known procedures IMMUNIZATIONS No Known Immunizations MEDICAL (GENERAL) HISTORY Type Description Date Medical History 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
--- NOTE | 2018-02-20 21:07 | ED Respiratory ---
General Chief Complaint: Respiratory Problems Stated Complaint: SOB Source: patient Exam Limitations: no limitations History of Present Illness Date Seen by Provider: February 20, 2018 Time Seen by Provider: 20:45 Initial Comments Here with report of breathing problems for the last 3 days. Doesn't know why this is going on. Also complains of left lower quadrant abdominal pain. She has had some diarrhea recently but states that stopped. Denies chest pain. Denies blood in her stools. States that her blood pressure is been up because she's been out of her meds for a month because she missed her appointment. She is not currently taking her blood pressure medicines. Timing/Duration: getting worse Severity: moderate Prior Episodes/Possible Cause: occasional episodes Modifying Factors: Worse With Activity; Improves With Rest Associated Symptoms: No chest pain/soreness, No cough, No fever/chills, No nasal congestion; shortness of breath; No wheezing Allergies and Home Medications Allergies Coded Allergies: nitrous oxide (Verified Allergy, Unknown, 06/08/07) AILEEN Inhibitors (Verified Adverse Reaction, Unknown, 05/25/14) Causes Hyperkalemia Home Medications Albuterol Sulfate 8.5 Gm Hfa.aer.ad, 2 PUFF IH Q4H PRN for WHEEZING Prescribed by: QUIN JONES on 11/23/16 154 Clindamycin HCl 300 Mg Capsule, 300 MG PO QID Prescribed by: STAR WILLIS on 06/18/172017 Doxycycline Hyclate 100 Mg Tablet, 100 MG PO BID Prescribed by: QUIN JONES on 11/23/16 154 Lansoprazole 30 Mg Capsule.dr, 30 MG PO UD, (Reported) Polyethylene Glycol 3350 119 Gm Powder, 17 GM PO BID Take one capful twice daily for 3 days and then one capful daily thereafter to keep stools soft. Prescribed by: QUIN JONES on 03/06/17 1140 Prednisone 20 Mg Tab, 40 MG PO DAILY Prescribed by: QUIN JONES on 11/23/16 1544 Sulfamethoxazole/Trimethoprim 1 Each Tablet, 1 EACH PO BID Prescribed by: HOLA BRIGHT on 08/05/16 6256 Patient Home Medication List Home Medication List Reviewed: Yes Review of Systems Constitutional: see HPI; No chills, No fever EENTM: no symptoms reported Respiratory: see HPI; No cough; short of breath; No stridor, No wheezing Cardiovascular: no symptoms reported Gastrointestinal: abdominal pain (LLQ), diarrhea; No nausea, No vomiting Genitourinary: no symptoms reported Musculoskeletal: no symptoms reported Skin: no symptoms reported Psychiatric/Neurological: Anxiety, Weakness Hematologic/Lymphatic: No Symptoms Reported All Other Systems Reviewed Negative Unless Noted: Yes Past Tbfdkoj-Wascmr-Lzdtrw Hx Past Med/Social Hx: Reviewed Nursing Past Med/Soc Hx Patient Social History Alcohol Use: Denies Use Recreational Drug Use: No (PAST HX OF, METH, MARIJUANA) Drug of Choice: denies Smoking Status: Never a Smoker 2nd Hand Smoke Exposure: Yes Recent Hopitalizations: No Immunizations Up To Date Tetanus Booster (TDap): Less than 5yrs PED Vaccines UTD: No Date of Pneumonia Vaccine: Jul 13, 2012 Date of Influenza Vaccine: Aug 17, 2014 Seasonal Allergies Seasonal Allergies: No Past Medical History Surgeries: Yes (hernia repair, T&A, hysterectomy, bladder suspension, multi to left leg, ) Abdominal, Appendectomy, Bladder Surgery, Section, Hysterectomy, Orthopedic, Tonsillectomy Respiratory: Yes (SUPPOSED TO WEAR O2 AT HS AT 2 1/2-3L AT HS AND PRN) Asthma, Pneumonia, Chronic Bronchitis, COPD, Emphysema Currently Using CPAP: No Currently Using BIPAP: No Cardiac: Yes Cardiomyopathy, Coronary Artery Disease, Endocarditis, Heart Attack, Hypertension, Peripheral Vascular Neurological: Yes (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; CVA LEFT SIDE WEAKNESS, POOR BALANCE/USES WALKER) Seizure Disorder, Traumatic Brain Injury 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 Disorders: No Female 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 Sexually Transmitted Disease: No HIV/AIDS: No Kidney Infection, Bladder Infection, Kidney Stones, Renal Failure, UTI-Chronic Gastrointestinal: Yes (CHRONIC ABDOMINAL PAIN COMPLAINT; GASTRITIS; HEPATITIS C ) Abdominal Hernia, Gastroesophageal Reflux, Pancreatitis, Hepatitis Musculoskeletal: Yes Arthritis, Chronic Back Pain Endocrine: No Loss of Vision: Denies Hearing Impairment: Denies Cancer: Yes Cervical Psychosocial: Yes (SUBSTANCE ABUSE) Anxiety, Bipolar, Depression Integumentary: No Blood Disorders: Yes (ANEMIA) Adverse Reaction/Blood Tranf: No Family Medical History Reviewed Nursing Family Hx Abdominal aortic aneurysm 03 FATHER Alcoholism 03 FATHER 03 MOTHER 09 SISTER 09 SISTER Cancer 03 FATHER Cataract 03 FATHER 03 MOTHER Chest pain 03 MOTHER Family history: Diabetes mellitus 03 MOTHER Family history: Hypertension 03 MOTHER Family history: Thyroid disorder 03 MOTHER Headache 09 SISTER Heart disease 03 MOTHER History of drug abuse 03 FATHER 09 SISTER Myocardial infarction 03 MOTHER No Family History of: Isael's disease Aphasia Cancer of colon Congenital heart disease Congestive heart failure Cystic fibrosis Dementia Dysphagia Family history: Allergy Family history: Alzheimer's disease Family history: Arthritis Family history: Asthma Family history: Breast disease Family history: Cardiovascular disease Family history: Coronary thrombosis Family history: Gastrointestinal disease Family history: Glaucoma Family history: Osteoporosis Hearing loss Hereditary disease History of - anemia History of - disorder History of - respiratory disease Human immunodeficiency virus (HIV) seropositivity Hypercholesterolemia Infertile Kidney disease Malignant neoplasm of lung Parkinson's disease Prostate cancer Psychotic disorder Seizure disorder Stroke Tuberculosis Visual impairment No Pertinent Family Hx Physical Exam Vital Signs Vital Signs - First Documented 02/20/18 02/20/18 20:45 21:02 Temp 97.1 Pulse 105 Resp 24 B/P (MAP) 198/121 (146) Pulse Ox 95 O2 Delivery Room Air O2 Flow Rate 2.00 Capillary Refill : General Appearance: WD/WN, no apparent distress HEENT: PERRL/EOMI, pharynx normal Neck: full range of motion, supple Respiratory: lungs clear, normal breath sounds Cardiovascular: regular rate, rhythm, no murmur Gastrointestinal: soft, tenderness (mild left lower quadrant) Extremities: non-tender, normal inspection Neurologic/Psychiatric: alert, oriented x 3 Skin: normal color, warm/dry Progress/Results/Core Measures Suspected Sepsis SIRS Temperature: Pulse: Respiratory Rate: Laboratory Tests 02/20/18 20:50: White Blood Count 10.0 Blood Pressure / Mean: Laboratory Tests 02/20/18 20:50: Creatinine 1.22, Platelet Count 322, Total Bilirubin 0.5 Results/Orders Lab Results Laboratory Tests Test 02/20/18 20:50 02/20/18 21:23 Range/Units White Blood Count 10.0 4.3-11.0 10^3/uL Red Blood Count 4.05 L 4.35-5.85 10^6/uL Hemoglobin 12.0 11.5-16.0 G/DL Hematocrit 36 35-52 % Mean Corpuscular Volume 90 80-99 FL Mean Corpuscular Hemoglobin 30 25-34 PG Mean Corpuscular Hemoglobin Concent 33 32-36 G/DL Red Cell Distribution Width 14.2 10.0-14.5 % Platelet Count 322 130-400 10^3/uL Mean Platelet Volume 10.5 H 7.4-10.4 FL Neutrophils (%) (Auto) 77 H 42-75 % Lymphocytes (%) (Auto) 16 12-44 % Monocytes (%) (Auto) 5 0-12 % Eosinophils (%) (Auto) 2 0-10 % Basophils (%) (Auto) 0 0-10 % Neutrophils # (Auto) 7.7 1.8-7.8 X 10^3 Lymphocytes # (Auto) 1.6 1.0-4.0 X 10^3 Monocytes # (Auto) 0.5 0.0-1.0 X 10^3 Eosinophils # (Auto) 0.2 0.0-0.3 10^3/uL Basophils # (Auto) 0.0 0.0-0.1 10^3/uL D-Dimer 1.46 H 0.00-0.49 UG/ML Sodium Level 138 135-145 MMOL/L Potassium Level 4.2 3.6-5.0 MMOL/L Chloride Level 100 98-107 MMOL/L Carbon Dioxide Level 25 21-32 MMOL/L Anion Gap 13 5-14 MMOL/L Blood Urea Nitrogen 25 H 7-18 MG/DL Creatinine 1.22 0.60-1.30 MG/DL Estimat Glomerular Filtration Rate 45 BUN/Creatinine Ratio 20 Glucose Level 68 L 70-105 MG/DL Calcium Level 9.2 8.5-10.1 MG/DL Magnesium Level 2.1 1.8-2.4 MG/DL Total Bilirubin 0.5 0.1-1.0 MG/DL Aspartate Amino Transf (AST/SGOT) 16 5-34 U/L Alanine Aminotransferase (ALT/SGPT) 18 0-55 U/L Alkaline Phosphatase 68 40-136 U/L Troponin I 0.36 *H <0.30 NG/ML C-Reactive Protein High Sensitivity 4.32 H 0.00-0.50 MG/DL Total Protein 7.5 6.4-8.2 GM/DL Albumin 4.1 3.2-4.5 GM/DL Urine Color YELLOW Urine Clarity CLEAR Urine pH 7 5-9 Urine Specific Gregory 1.005 L 1.016-1.022 Urine Protein 2+ H NEGATIVE Urine Glucose (UA) NEGATIVE NEGATIVE Urine Ketones NEGATIVE NEGATIVE Urine Nitrite NEGATIVE NEGATIVE Urine Bilirubin NEGATIVE NEGATIVE Urine Urobilinogen NORMAL NORMAL MG/DL Urine Leukocyte Esterase NEGATIVE NEGATIVE Urine RBC (Auto) NEGATIVE NEGATIVE Urine RBC NONE /HPF Urine WBC NONE /HPF Urine Squamous Epithelial Cells RARE /HPF Urine Crystals NONE /LPF Urine Bacteria NONE /HPF Urine Casts NONE /LPF Urine Mucus NEGATIVE /LPF Urine Culture Indicated NO My Orders Orders - QUIN JONES MD Albuterol/Ipra Inhalation Soln (Duoneb I (02/20/18 21:00) Cbc With Automated Diff (02/20/18 20:59) Comprehensive Metabolic Panel (02/20/18 20:59) Hs C Reactive Protein (02/20/18 20:59) Magnesium (02/20/18 20:59) Ua Culture If Indicated (02/20/18 20:59) Saline Lock/Iv-Start (02/20/18 20:59) Ns Iv 1000 Ml (Sodium Chloride 0.9%) (02/20/18 20:59) Chest 1 View, Ap/Pa Only (02/20/18 20:59) Svn Small Volume Nebulizer (02/20/18 20:59) Fibrin Degradation Products (02/20/18 20:59) Troponin I (02/20/18 20:59) Ekg Tracing (02/20/18 20:59) Albuterol/Ipra Inhalation Soln (Duoneb I (02/20/18 20:56) Metoprolol Succinate (Xl) Tab (Toprol Xl (02/20/18 21:15) Metoprolol Succinate (Xl) Tab (Toprol Xl (02/20/18 21:05) Hydralazine Injection (Apresoline Inject (02/20/18 22:15) Hydralazine Injection (Apresoline Inject (02/20/18 22:11) Medications Given in ED Current Medications Medications Dose Ordered Sig/Tad Route Start Time Stop Time Status Last Admin Dose Admin Albuterol/ Ipratropium 3 ml STK-MED ONCE .ROUTE 02/20/18 20:56 02/20/18 21:01 DC 02/20/18 21:02 3 ML Sodium Chloride 1,000 ml @ 0 mls/hr Q0M ONCE IV 02/20/18 20:59 02/20/18 21:03 DC 02/20/18 21:12 1,000 MLS/HR Vital Signs/I&O 5/11/18 5/11/18 20:45 21:02 Temp 97.1 Pulse 105 Resp 24 B/P (MAP) 198/121 (146) Pulse Ox 95 96 O2 Delivery Room Air Nasal Cannula O2 Flow Rate 2.00 Capillary Refill : Progress Note : Progress Note Seen and evaluated. IV, labs, UA, chest x-ray, DuoNeb, normal saline 1 L bolus ordered. EKG ordered. Monitor patient. We did apply O2 2 L via nasal cannula for subjective shortness of breath. This did increase her oxygen from 95 percent on room air to 98 percent. Monitor patient. Patient has historically been on Toprol-XL 50 mg daily. We will give her one dose now due to her current hypertension and tachycardia. 2149: Patient's troponin and d-dimer elevated. I have discussed the case with Dr. Laurent, on-call for [facility]. We discussed patient's renal history as well as current findings. Has multiple other events with elevated d-dimer and troponin in her past with negative workup for PE. She does have tachycardia and shortness of breath today. Given these findings, we will initiate Lovenox twice a day and first dose now. I will consult cardiology. 2199: I did speak with Dr. Jenkins, on- call for cardiology, he accepts patient for consult. We will get a VQ scan in the morning as well as 2-D cardiac echo. 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 Admit, observation status. Patient agrees to plan. ECG Initial ECG Impression Date: February 20, 2018 Initial ECG Impression Time: 21:07 Initial ECG Rate: 101 Initial ECG Rhythm: S.Tach Comment Sinus tachycardia with left atrial abnormality and LVH. Normal axis. No evidence of ST elevation DC. Overall similar to previous except for rate increased from 02/04/18. Interpreted by me. Diagnostic Imaging Diagonstic Imaging: Xray Plain Films/CT/US/NM/MRI: chest Comments NAME: KEREN MAX MED REC#: [id number] PT STATUS: REG ER : 1960 PHYSICIAN: QUIN JONES MD ADMIT DATE: 02/20/18/ER Signed Date of Exam: 02/20/18 CHEST 1 VIEW, AP/PA ONLY INDICATION: Shortness of breath. EXAMINATION: Portable chest at 9:15 p.m. FINDINGS: Heart size and pulmonary vascularity are normal. Lungs are clear. There are no effusions or pneumothoraces. IMPRESSION: Negative chest. Dictated by: Dictated on workstation # [id number] Dict: 02/20/182122 Trans: 02/20/182125 Interpreted by: QUIN SANFORD MD Electronically signed by: QUIN SANFORD MD 02/20/182125 Departure Communication (Admissions) Time/Spoke to Admitting Phy: 21:50 Time/Spoke to Consulting Phy: 22:00 Impression Primary Impression: elevated troponin Additional Impressions: Elevated d-dimer Shortness of breath Disposition: ADMITTED INPATIENT Condition: Stable Admissions Decision to Admit Reason: Admit from ER (General) Decision to Admit/Date: February 20, 2018 Time/Decision to Admit Time: 21:50 Departure-Patient Inst. Referrals: [facility] (PCP/Family) Primary Care Physician QUIN JONES MD February 20, 2018 21:07
--- OUTSIDE RECORDS SUMMARY | 2018-02-20 21:07 | XMS REPORT ---
Author Author TRACEE LANGE Organization [facility] Address [address] [place] [address] Care Team Providers Care Small Animal Caretaker Name Role Phone TRACEE LANGE Unavailable PROBLEMS Type Condition ICD9-CM Code OHL53-YI Code Onset Dates Condition Status SNOMED Code Problem Intracranial injury, without loss of consciousness, subsequent encounter S06.9X0D Active 110566169 Problem Epileptic seizure, generalized G40.309 Active 82896558 Problem GERD (gastroesophageal reflux disease) K21.9 Active 279617678 Problem Lumbar neuritis M54.16 Active 066106979 Problem Thoracic neuritis M54.14 Active 03466441 Problem Cardiomyopathy I42.9 Active 22548408 Problem Hypertension, benign I10 Active 48227822 ALLERGIES No Information ENCOUNTERS Encounter Location Date Diagnosis [place] [address] [address] Jan, [place] [address] [address]- [address] Dec, Thoracic neuritis M54.14 ; Lumbar neuritis M54.16 and Epileptic seizure, generalized G40.309 [place] [address] [place] [id number] [place] [address]37- 0153 Sep, Epileptic seizure, generalized G40.309 and Lumbar neuritis M54.16 [place] [address] [address]- 2010 Aug, Thoracic neuritis M54.14 and Lumbar neuritis M54.16 [place] [address] [address]28- 3965 Jun, [place] [address] [address]91- 0828 Jun, Abscess of leg, left L02.416 [facility] [address] [place] [id number] [place] [address] 54286- 6257 May, Lumbar neuritis M54.16 ; Thoracic neuritis M54.14 ; Intracranial injury, without loss of consciousness, subsequent encounter S06.9X0D and Cardiomyopathy I42.9 [facility] [address] [place] [id number] [place] [address] 06343- 6384 Apr, Lumbar neuritis M54.16 [facility] [address] [address]- 4210 Apr, [facility] [address] 11864- 4953 Apr, Elevated liver enzymes R74.8 and Renal insufficiency N28.9 [place] [address] [place] [id number] [place] [address] 63187- 5577 Apr, Lumbar neuritis M54.16 ; Thoracic neuritis M54.14 ; Hypertension, benign I10 ; Cardiomyopathy I42.9 and Epileptic seizure, generalized G40.309 [facility] [address] [place] [id number] [place] [address] 67967- 7741 Mar, [place] [address] 73405- 7982 February, [facility] [address] [place] [id number] [place] [address] 40128- 9416 February, Lumbar neuritis M54.16 ; Thoracic neuritis M54.14 ; Hypertension, benign I10 ; Cardiomyopathy I42.9 and Epileptic seizure, generalized G40.309 [facility] [address] [place] [id number] [place] [address] 19053- 6316 Dec, [facility] [address] 24746- 9439 Sep, Epigastric mass R19.06 [facility] [address] [place] [id number] [place] [address] 50304- 4582 Sep, Epigastric mass R19.06 [place] [address] 19615- 3601 Sep, [place] [address] 81544- 8949 Sep, Epigastric mass R19.06 [place] [address] 40451- 2986 Sep, Epigastric mass R19.06 and Lung mass R91.8 [facility] [address] 5[address]27 -[address]99 Jul, Shortness of breath R06.02 ; Dysuria R30.0 and Acute bronchitis, unspecified organism J20.9 [place] [address] 05081- 1597 Jul, [place] [address] 94231- 2273 Jun, Seizures R56.9 ; Thoracic neuritis M54.14 ; Lumbar neuritis M54.16 and GERD (gastroesophageal reflux disease) K21.9 [facility] [place] [address] 8[address]68 -2405 Jan, [place] [address] 31570- 4167 Sep, [address] [address]- 5398 Sep, Intracranial injury, without loss of consciousness, subsequent encounter S06.9X0D ; Cardiomyopathy I42.9 ; GERD (gastroesophageal reflux disease) K21.9 ; Hypertension, benign I10 ; Thoracic neuritis M54.14 and Lumbar neuritis M54.[address] 31511- 3448 Mar, [place] [address] 23141- 1444 Mar, Coronary atherosclerosis of unspecified type of vessel, deering or graft 414.00 ; Unspecified essential hypertension 401.9 ; Thoracic or lumbosacral neuritis or radiculitis, unspecified 724.4 and Other convulsions 780.39 [facility] [address] [place] [id number] [place] [address] 54708- 3885 14 Jan, 2015 [facility] [address] [place] [id number] [place] [address] 97552- 0624 Jan, [facility] [address] [place] [id number] [place] [address] 12459- 0923 Nov, [facility] [address] [place] [id number] [place] [address] 74443- 8526 Nov, [facility] [address] [place] [id number] [place] [address] 70163- 4861 Nov, [facility] [address] [place] [id number] [place] [address] 74580- 1048 Nov, [facility] [address] [place] [id number] [place] [address] 52963- 3463 Nov, [facility] [id number] [place] [address] 10064- 0266 Nov, [facility] [id number] [place] [address] 02493- 3047 Nov, [facility] [address] [address]- 9659 Nov, [facility] [address] [address]- 6638 Nov, [facility] [address] [place] [id number] [place] [address] 07662- 8822 Nov, [facility] [address] [place] [id number] [address]33 Sep, [facility] [address] [address]69 Sep, [facility] [place] [facility] [address] [id number] [place] [address]- 9374 Aug, [facility] [place] [facility] [address] [id number] [place] [address]- 5913 Aug, [facility] [place] [facility] [address] [id number] [place] [address]- 6219 Aug, [facility] [place] [facility] [address] [id number] [place] [address]- 3931 Aug, [facility] [place] [facility] [address] [id number] [place] [address]- 9685 Jul, [facility] [place] [facility] [address] [id number] [place] [address]- 2055 Jul, [facility] [place] [facility] [address] [id number] [place] [address]- 0490 Jul, [facility] [place] [facility] [address] [id number] [place] [address]- 3824 Jul, [facility] [place] [facility] [address] [id number] [place] [address]- 6253 Jun, [facility] [place] [facility] [address] [id number] [place] [address]- 5881 Jun, [facility] [place] [facility] [address] [id number] [place] [address]- 1537 Jun, [facility] [place] [facility] [address] [id number] [place] [address]- 2481 May, [facility] [place] [facility] [address] [id number] [place] [address]- 2992 May, [facility] [place] [facility] [address] [id number] [place] [address]- 4581 May, [facility] [place] [facility] [address] [id number] [place] [address]- 8902 May, [facility] [place] [facility] [address] [id number] [place] [address]- 4153 May, [facility] [place] [facility] [address] [id number] [place] [address]- 7994 May, [facility] [place] [facility] [address] [id number] [place] [address]- 3145 May, [facility] [place] [facility] [address] [id number] [place] [address]- 6075 May, [facility] [place] [facility] [address] [id number] [place] [address]- 0928 February, [facility] [place] [facility] [address] [id number] [place] [address]- 5315 February, [facility] [place] [facility] [address] [id number] [place] [address]- 6853 Jan, [facility] [place] [facility] [address] [id number] [place] [address]- 9260 Jan, [facility] [place] [facility] [address] [id number] [place] [address]- 0155 Jan, [facility] [place] [facility] [address] [id number] [place] [address]- 7733 Jan, [facility] [place] [facility] [address] [id number] [place] [address]- 7268 Nov, [facility] [place] [facility] [address] [id number] [place] [address]- 3548 Nov, [facility] [place] [facility] [address] [id number] [place] [address]- 9703 Nov, [facility] [place] [facility] [address] [id number] [place] 3309 Nov, [facility] [place] [facility] [address] [id number] [place] [address]- 4766 Sep, [facility] [place] [facility] [address] [id number] [place] [address]- 9312 Sep, [facility] [place] [facility] [address] [id number] [place] [address]- 6774 07 Sep, 2013 [facility] [address] [id number] [place] [address]- 9578 Sep, [facility] [address] [id number] [place] [address]- 7473 Sep, [facility] [address] [id number] [place] [address]- 8624 Sep, [facility] [address] [id number] [place] [address]- 8505 Jul, [facility] [address] [id number] [place] [address]- 1879 Jul, [facility] [address] [id number] [place] [address]- 4214 Jun, [facility] [address] [id number] [place] [address]- 4779 Jun, [facility] [address] [id number] [place] [address]- 1173 Jun, [facility] [address] [id number] [place] [address]- 7468 May, [address] [id number] May [facility] [address] [id number] [place] [address]- 3749 May, [facility] [address] [id number] [place] [address]- 3500 May, [facility] [address] [id number] [place] [address]- 0168 May, [facility] [address] [id number] [place] [address]- 7168 May, [facility] [address] [id number] [place] [address]- 1409 May, [facility] [place] [facility] [address] [id number] [place] [address]- 5575 31 Apr, 2013 [facility] [address] [id number] [place] [address]- 9721 30 Apr, 2013 [facility] [place] [facility] [address] [id number] [place] [address]- 1722 Apr, [facility] [place] [facility] [address] [id number] [place] [address]- 4529 Apr, [facility] [place] [facility] [address] [id number] [place] [address]- 4690 Mar, [facility] [place] [facility] [address] [id number] [place] [address]- 3976 February, [facility] [place] [facility] [address] [id number] [place] [address]- 7450 Jan, [facility] [place] [facility] [address] [id number] [place] [address]- 3507 Dec, [facility] [place] [facility] [address] [id number] [place] [address]- 8620 Dec, [facility] [place] [facility] [address] [id number] [place] [address]- 7459 Dec, [facility] [place] [facility] [address] [id number] [place] [address]- 2304 Nov, [facility] [place] [facility] [address] [id number] [place] [address]- 6506 Nov, [facility] [place] [facility] [address] [id number] [place] [address]- 0562 Nov, [facility] [place] [facility] [address] [id number] [place] [address]- 9851 Oct, [facility] [place] [facility] [address] [id number] [place] [address]- 2150 Oct, [facility] [place] [facility] [address] [id number] [place] [address]- 8618 Sep, [facility] [place] [facility] [address] [id number] [place] [address]- 2866 Sep, [facility] [place] [facility] [address] [id number] [place] [address]- 5166 Sep, [facility] [place] [facility] [address] [id number] [place] [address]- 8346 Sep, [facility] [place] [facility] [address] [id number] [place] [address]- 5360 Sep, [facility] [place] [facility] [address] [id number] [place] [address]- 3704 Sep, [facility] [place] [facility] [address] [id number] [place] [address]- 9264 Aug, [facility] [place] [facility] [address] [id number] [place] [address]- 8069 Aug, [facility] [place] [facility] [address] [id number] [place] [address]- 1025 Aug, [facility] [place] [facility] [address] [id number] [place] [address]- 5128 Aug, [facility] [place] [facility] [address] [id number] [place] [address]- 3325 Aug, [facility] [place] [facility] [address] [id number] [place] [address]- 9341 Aug, [facility] [place] [facility] [address] [id number] [place] [address]- 8309 Aug, [facility] [place] [facility] [address] [id number] [place] [address]- 1685 Aug, [facility] [place] [facility] [address] [id number] [place] [address]- 0852 Aug, [facility] [place] [facility] [address] [id number] [place] [address]- 0600 Aug, [facility] [place] [facility] [address] [id number] [place] [address]- 8648 Jul, 2011 [facility] [place] [facility] [address] [id number] [place] [address]- 2231 Jul, 2011 [facility] [place] [facility] [address] [id number] [place] [address]- 2738 Jul, 2011 [facility] [place] [facility] [address] [id number] [place] [address]- 0602 Jul, [facility] [place] [facility] [address] [id number] [place] [address]- 7759 Jul, [facility] [place] [facility] [id number] [place] [address], [place] [address]- 9661 Jul, [facility] [place] [facility] [address] [id number] [place] [address]- 9399 Jul, [facility] [place] [facility] [address] [id number] [place] [address]- 2625 Jul, [facility] [place] [facility] [address] [id number] [place] [address]- 0838 18 Jul, 2012 [facility] [place] [facility] [address] [id number] [place] [address]- 8272 Jul, [facility] [place] [facility] [address] [id number] [place] [address]- 6979 Jul, [facility] [place] [facility] [address] [id number] [place] [address]- 3233 Jul, [facility] [place] [facility] [address] [id number] [place] [address]- 3204 Jul, [facility] [place] [facility] [address] [id number] [place] [address]- 5394 Jul, [facility] [place] [facility] [address] [id number] [place] [address]- 9876 Jul, [facility] [place] [facility] [address] [id number] [place] [address]- 5157 Jun, [facility] [place] [facility] [address] [id number] [place] [address]- 7555 Jun, [facility] [place] [facility] [address] [id number] [place] [address]- 3134 Jun, [facility] [place] [facility] [address] [id number] [place] [address]- 2046 May, [facility] [place] [facility] [address] [id number] [place] [address]- 1046 May, [facility] [place] [facility] [address] [id number] [place] 7096 Mar, [facility] [place] [facility] [address] [id number] [place] [address]- 4366 Mar, [facility] [place] [facility] [address] [id number] [place] [address]- 7820 February, [facility] [place] [facility] [address] [id number] [place] [address]- 5899 February, [facility] [place] [facility] [address] [id number] [place] [address]- 7794 Nov, [facility] [place] [facility] [address] [id number] [place] [address]- 4656 Oct, [facility] [place] [facility] [address] [id number] [place] [address]- 5046 Oct, [facility] [place] [facility] [address] [id number] [place] [address]- 6790 Oct, [facility] [place] [facility] [address] [id number] [place] [address]- 0936 Aug, [facility] [place] [facility] [address] [id number] [place] [address]- 5516 Jul, [facility] [place] [facility] [address] [id number] [place] [address]- 3536 Sep, [facility] [place] [facility] [id number] [address] 08 Aug, 2010 [facility] [address] [address]- 3231 Jul, [facility] [address] [address]- 1588 14 Apr, 2010 [facility] [address] [id number] [place] [address] 99348- 0011 February, [facility] [address] [id number] [place] [address] 42254- 6012 Sep, [facility] [id number] [place] [address] 26377- 5171 Sep, [facility] [id number] [place] [address] 84147- 6332 Sep, [facility] [id number] [place] [address] 48060- 3513 Apr, [facility] [id number] [place] [address] 46090- 0538 Mar, [facility] [id number] [place] [address] 86334- 9179 February, [facility] [address] [address]- 2156 Jan, [facility] [id number] [place] [address] 04655- 7754 Jul, IMMUNIZATIONS No Known Immunizations SOCIAL HISTORY [...] Hernia-repaired Medical History Hyperactive bladder Medical History Okg-dxxmhleu-ZfF3C 03/2011-6.1 % Medical History Epilepsy and recurrent [...]
[2018-02-20 21:10] LABS: BASOPHILS % (AUTO) 0 % (0-10); EOSINOPHILS # (AUTO) 0.2 10^3/uL (0.0-0.3); EOSINOPHILS % (AUTO) 2 % (0-10); HEMATOCRIT 36 % (35-52); LYMPHOCYTES # (AUTO) 1.6 X 10^3 (1.0-4.0); LYMPHOCYTES % (AUTO) 16 % (12-44); MEAN CORPUSCULAR HEMOGLOBIN 30 PG (25-34); MEAN CORPUSCULAR HGB CONC 33 G/DL (32-36); MEAN CORPUSCULAR VOLUME 90 FL (80-99); MEAN PLATELET VOLUME 10.5 FL (7.4-10.4); MONOCYTES # (AUTO) 0.5 X 10^3 (0.0-1.0); MONOCYTES % (AUTO) 5 % (0-12); NEUTROPHILS # (AUTO) 7.7 X 10^3 (1.8-7.8); NEUTROPHILS % (AUTO) 77 % (42-75); PLATELET COUNT 322 10^3/uL (130-400); RED BLOOD COUNT 4.05 10^6/uL (4.35-5.85); RED CELL DISTRIBUTION WIDTH 14.2 % (10.0-14.5)
--- OUTSIDE RECORDS SUMMARY | 2018-02-20 21:11 | XMS REPORT ---
Author Author TRACEE LANGE Organization [facility] Address [address] [place] [address] Care Team Providers Care Intake Coordinator Name Role Phone TRACEE LANGE Unavailable PROBLEMS Type Condition ICD9-CM Code OBD16-BY Code Onset Dates Condition Status SNOMED Code Problem Intracranial injury, without loss of consciousness, subsequent encounter S06.9X0D Active 073103628 Problem Epileptic seizure, generalized G40.309 Active 47126450 Problem GERD (gastroesophageal reflux disease) K21.9 Active 465427478 Problem Lumbar neuritis M54.16 Active 638592920 Problem Thoracic neuritis M54.14 Active 15110945 Problem Cardiomyopathy I42.9 Active 00658649 Problem Hypertension, benign I10 Active 62813119 ALLERGIES No Information SOCIAL HISTORY Never Assessed PLAN OF CARE VITAL SIGNS MEDICATIONS Unknown Medications RESULTS No Results PROCEDURES No Known procedures IMMUNIZATIONS No Known Immunizations MEDICAL (GENERAL) HISTORY Type Description Date Medical History Post-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/2013-ejection fraction 30 % Medical History Chronic Obstructive pulmonary disease Medical History Hernia-repaired Medical History Hyperactive bladder Medical History [id number] 03/2011-6.1 % Medical History Epilepsy and recurrent [...]
--- OUTSIDE RECORDS SUMMARY | 2018-02-20 21:11 | XMS REPORT ---
Author Author TRACEE LANGE Organization [facility] Address [address] [place] [address] Care Team Providers Care General Scrap Worker Name Role Phone TRACEE LANGE Unavailable PROBLEMS Type Condition ICD9-CM Code ITW45-MI Code Onset Dates Condition Status SNOMED Code Problem Intracranial injury, without loss of consciousness, subsequent encounter S06.9X0D Active 786624812 Problem Epileptic seizure, generalized G40.309 Active 77218317 Problem GERD (gastroesophageal reflux disease) K21.9 Active 070731217 Problem Lumbar neuritis M54.16 Active 898932214 Problem Thoracic neuritis M54.14 Active 74109284 Problem Cardiomyopathy I42.9 Active 08710286 Problem Hypertension, benign I10 Active 58993463 ALLERGIES No Information ENCOUNTERS Encounter Location Date Diagnosis [place] [address] [address] Jan, [place] [address] 25[address]- [address]284 Dec, Thoracic neuritis M54.14 ; Lumbar neuritis M54.16 and Epileptic seizure, generalized G40.309 [place] [address] [place] [id number] [place] [address] 24748- 1738 Sep, Epileptic seizure, generalized G40.309 and Lumbar neuritis M54.16 [place] [address] 24261- 0103 Aug, Thoracic neuritis M54.14 and Lumbar neuritis M54.16 [place] [address] 53379- 7432 Jun, [place] [address] 15727- 6959 Jun, Abscess of leg, left L02.416 [facility] [address] [place] [id number] [place] [address] 59886- 2755 May, Lumbar neuritis M54.16 ; Thoracic neuritis M54.14 ; Intracranial injury, without loss of consciousness, subsequent encounter S06.9X0D and Cardiomyopathy I42.9 [facility] [address] [place] [id number] [place] [address] 15371- 6325 Apr, Lumbar neuritis M54.16 [facility] [address] 35244- 2465 Apr, [facility] [address] 98295- 8877 Apr, Elevated liver enzymes R74.8 and Renal insufficiency N28.9 [place] [address] [place] [id number] [place] [address] 40217- 4406 Apr, Lumbar neuritis M54.16 ; Thoracic neuritis M54.14 ; Hypertension, benign I10 ; Cardiomyopathy I42.9 and Epileptic seizure, generalized G40.309 [facility] [address] [place] [id number] [place] [address] 26301- 6133 Mar, [place] [address] 25832- 6709 February, [facility] [address] [place] [id number] [place] [address] 04033- 6026 February, Lumbar neuritis M54.16 ; Thoracic neuritis M54.14 ; Hypertension, benign I10 ; Cardiomyopathy I42.9 and Epileptic seizure, generalized G40.309 [facility] [address] [place] [id number] [place] [address] 52325- 0935 Dec, [facility] [address] 53296- 5891 Sep, Epigastric mass R19.06 [facility] [address] [place] [id number] [place] [address] 53841- 9383 Sep, Epigastric mass R19.06 [place] [address] 11945- 8775 Sep, [place] [address] 58594- 4048 Sep, Epigastric mass R19.06 [place] [address] 86544- 2029 Sep, Epigastric mass R19.06 and Lung mass R91.8 [facility] [address] 14[address] -[address]85 Jul, Shortness of breath R06.02 ; Dysuria R30.0 and Acute bronchitis, unspecified organism J20.9 [place] [address] 47068- 9973 Jul, [place] [address] 65693- 7363 Jun, Seizures R56.9 ; Thoracic neuritis M54.14 ; Lumbar neuritis M54.16 and GERD (gastroesophageal reflux disease) K21.9 [facility] [place] [address] 54869 -6762 Jan, [place] [address] 02596- 7250 Sep, [address] [address]46- 7357 Sep, Intracranial injury, without loss of consciousness, subsequent encounter S06.9X0D ; Cardiomyopathy I42.9 ; GERD (gastroesophageal reflux disease) K21.9 ; Hypertension, benign I10 ; Thoracic neuritis M54.14 and Lumbar neuritis M54.[address] 78[address]- 9788 Mar, [place] [address] 65507- 9468 Mar, Coronary atherosclerosis of unspecified type of vessel, [place] or graft 414.00 ; Unspecified essential hypertension 401.9 ; Thoracic or lumbosacral neuritis or radiculitis, unspecified 724.4 and Other convulsions 780.39 [facility] [address] [place] [id number] [place] [address] 90441- 8743 14 Jan, 2015 [facility] [address] [place] [id number] [place] [address] 56544- 3210 Jan, [facility] [address] [place] [id number] [place] [address] 20679- 9009 Nov, [facility] [address] [place] [id number] [place] [address] 36376- 1627 Nov, [facility] [address] [place] [id number] [place] [address] 46957- 8896 Nov, [facility] [address] [place] [id number] [place] [address] 05860- 4670 Nov, [facility] [address] [place] [id number] [place] [address] 96604- 3383 Nov, [facility] [id number] [place] [address] 24367- 4665 Nov, [facility] [id number] [place] [address] 06266- 0999 Nov, [facility] [address] [address]- 0351 Nov, [facility] [address] [address]- 7962 Nov, [facility] [address] [place] [id number] [place] [address] 73913- 0934 Nov, [facility] [address] [place] [id number] [address]17 Sep, [facility] [address] [address] Sep, [facility] [place] [facility] [address] [id number] [place] [address]- 6701 Aug, [facility] [place] [facility] [address] [id number] [place] [address]- 7954 Aug, [facility] [place] [facility] [address] [id number] [place] [address]- 5445 Aug, [facility] [place] [facility] [address] [id number] [place] [address]- 6496 Aug, [facility] [place] [facility] [address] [id number] [place] [address]- 1246 Jul, [facility] [place] [facility] [address] [id number] [place] [address]- 8398 Jul, [facility] [place] [facility] [address] [id number] [place] [address]- 8607 Jul, [facility] [place] [facility] [address] [id number] [place] [address]- 4097 Jul, [facility] [place] [facility] [address] [id number] [place] [address]- 9706 Jun, [facility] [place] [facility] [address] [id number] [place] [address]- 6971 Jun, [facility] [place] [facility] [address] [id number] [place] [address]- 7432 Jun, [facility] [place] [facility] [address] [id number] [place] [address]- 6034 May, [facility] [place] [facility] [address] [id number] [place] [address]- 1919 May, [facility] [place] [facility] [address] [id number] [place] [address]- 8059 May, [facility] [place] [facility] [address] [id number] [place] [address]- 4806 May, [facility] [place] [facility] [address] [id number] [place] [address]- 2603 May, [facility] [place] [facility] [address] [id number] [place] [address]- 4292 May, [facility] [place] [facility] [address] [id number] [place] [address]- 8613 May, [facility] [place] [facility] [address] [id number] [place] [address]- 2880 May, [facility] [place] [facility] [address] [id number] [place] [address]- 6627 February, [facility] [place] [facility] [address] [id number] [place] [address]- 4713 February, [facility] [place] [facility] [address] [id number] [place] [address]- 3479 Jan, [facility] [place] [facility] [address] [id number] [place] [address]- 3911 Jan, [facility] [place] [facility] [address] [id number] [place] [address]- 7802 Jan, [facility] [place] [facility] [address] [id number] [place] [address]- 8834 Jan, [facility] [place] [facility] [address] [id number] [place] [address]- 0014 Nov, [facility] [place] [facility] [address] [id number] [place] [address]- 6291 Nov, [facility] [place] [facility] [address] [id number] [place] [address]- 2828 Nov, [facility] [place] [facility] [address] [id number] [place] 2487 Nov, [facility] [place] [facility] [address] [id number] [place] [address]- 4459 Sep, [facility] [place] [facility] [address] [id number] [place] [address]- 0058 Sep, [facility] [place] [facility] [address] [id number] [place] [address]- 0405 07 Sep, 2013 [facility] [place] [facility] [address] [id number] [place] [address]- 0229 Sep, [facility] [address] [id number] [place] [address]- 9690 Sep, [facility] [place] [facility] [address] [id number] [place] [address]- 4945 Sep, [facility] [address] [id number] [place] [address]- 0364 Jul, [facility] [place] [facility] [address] [id number] [place] [address]- 6409 Jul, [facility] [place] [facility] [address] [id number] [place] [address]- 7572 Jun, [facility] [place] [facility] [address] [id number] [place] [address]- 1107 Jun, [facility] [place] [facility] [address] [id number] [place] [address]- 3864 Jun, [facility] [place] [facility] [address] [id number] [place] [address]- 0214 May, [address] [id number] May [facility] [place] [facility] [address] [id number] [place] [address]- 3549 May, [facility] [place] [facility] [address] [id number] [place] [address]- 9479 May, [facility] [address] [id number] [place] [address]- 0617 May, [facility] [address] [id number] [place] [address]- 8596 May, [facility] [place] [facility] [address] [id number] [place] [address]- 5308 May, [facility] [place] [facility] [address] [id number] [place] [address]- 7365 31 Apr, 2013 [facility] [address] [id number] [place] [address]- 9724 30 Apr, 2013 [facility] [place] [facility] [address] [id number] [place] [address]- 7149 Apr, [facility] [place] [facility] [address] [id number] [place] [address]- 8162 Apr, [facility] [place] [facility] [address] [id number] [place] [address]- 8569 Mar, [facility] [place] [facility] [address] [id number] [place] [address]- 3901 February, [facility] [place] [facility] [address] [id number] [place] [address]- 8292 Jan, [facility] [place] [facility] [address] [id number] [place] [address]- 6798 Dec, [facility] [place] [facility] [address] [id number] [place] [address]- 3883 Dec, [facility] [place] [facility] [address] [id number] [place] [address]- 0405 Dec, [facility] [place] [facility] [address] [id number] [place] [address]- 0371 Nov, [facility] [place] [facility] [address] [id number] [place] [address]- 1805 Nov, [facility] [place] [facility] [address] [id number] [place] [address]- 8395 Nov, [facility] [place] [facility] [address] [id number] [place] [address]- 1588 Oct, [facility] [place] [facility] [address] [id number] [place] [address]- 7355 Oct, [facility] [place] [facility] [address] [id number] [place] [address]- 9181 Sep, [facility] [place] [facility] [address] [id number] [place] [address]- 4996 Sep, [facility] [place] [facility] [address] [id number] [place] [address]- 7436 Sep, [facility] [place] [facility] [address] [id number] [place] [address]- 7466 Sep, [facility] [place] [facility] [address] [id number] [place] [address]- 5725 Sep, [facility] [place] [facility] [address] [id number] [place] [address]- 9131 Sep, [facility] [place] [facility] [address] [id number] [place] [address]- 5706 Aug, [facility] [place] [facility] [address] [id number] [place] [address]- 5028 Aug, [facility] [place] [facility] [address] [id number] [place] [address]- 1408 Aug, [facility] [place] [facility] [address] [id number] [place] [address]- 6997 Aug, [facility] [place] [facility] [address] [id number] [place] [address]- 8982 Aug, [facility] [place] [facility] [address] [id number] [place] [address]- 6013 Aug, [facility] [place] [facility] [address] [id number] [place] [address]- 2769 Aug, [facility] [place] [facility] [address] [id number] [place] [address]- 5434 Aug, [facility] [place] [facility] [address] [id number] [place] [address]- 3298 Aug, [facility] [place] [facility] [address] [id number] [place] [address]- 2666 Aug, [facility] [place] [facility] [address] [id number] [place] [address]- 5062 Jul, 2011 [facility] [place] [facility] [address] [id number] [place] [address]- 8651 Jul, 2011 [facility] [place] [facility] [address] [id number] [place] [address]- 3627 Jul, 2011 [facility] [place] [facility] [address] [id number] [place] [address]- 6069 Jul, [facility] [place] [facility] [address] [id number] [place] [address]- 6579 Jul, [facility] [place] [facility] [address] [id number] [place] [address], [place] [address]- 8308 Jul, [facility] [place] [facility] [address] [id number] [place] [address]- 1266 Jul, [facility] [place] [facility] [address] [id number] [place] [address]- 7012 Jul, [facility] [place] [facility] [address] [id number] [place] [address]- 6610 18 Jul, 2012 [facility] [place] [facility] [address] [id number] [place] [address]- 3250 Jul, [facility] [place] [facility] [address] [id number] [place] [address]- 1794 Jul, [facility] [place] [facility] [address] [id number] [place] [address]- 9308 Jul, [facility] [place] [facility] [address] [id number] [place] [address]- 4455 Jul, [facility] [place] [facility] [address] [id number] [place] [address]- 9899 Jul, [facility] [place] [facility] [address] [id number] [place] [address]- 3476 Jul, [facility] [place] [facility] [address] [id number] [place] [address]- 9190 Jun, [facility] [place] [facility] [address] [id number] [place] [address]- 7351 Jun, [facility] [place] [facility] [address] [id number] [place] [address]- 6268 Jun, [facility] [place] [facility] [address] [id number] [place] [address]- 1828 May, [facility] [place] [facility] [address] [id number] [place] [address]- 6866 May, [facility] [place] [facility] [address] [id number] [place] 8131 Mar, [facility] [place] [facility] [address] [id number] [place] [address]- 9486 Mar, [facility] [place] [facility] [address] [id number] [place] [address]- 7972 February, [facility] [place] [facility] [address] [id number] [place] [address]- 1901 February, [facility] [place] [facility] [address] [id number] [place] [address]- 1654 Nov, [facility] [place] [facility] [address] [id number] [place] [address]- 2910 Oct, [facility] [place] [facility] [address] [id number] [place] [address]- 6566 Oct, [facility] [place] [facility] [address] [id number] [place] [address]- 2191 Oct, [facility] [place] [facility] [address] [id number] [place] [address]- 0125 Aug, [facility] [place] [facility] [address] [id number] [place] [address]- 5116 Jul, [facility] [place] [facility] [address] [id number] [place] [address]- 4766 Sep, [facility] [place] [facility] [id number] [address]- 6967 08 Aug, 2010 [facility] [address] [place] [address] 724115- 4538 Jul, [facility] [address] [place] [address] 32267- 2532 14 Apr, 2010 [facility] [address] [place] [id number] [place] [address] 43781- 7141 February, [facility] [address] [place] [id number] [place] [address] 09757- 0736 Sep, [facility] [address] [place] [id number] [place] [address] 21728- 9464 Sep, [facility] [address] [place] [id number] [place] [address] [id number]- 3932 Sep, [facility] [address] [place] [id number] [place] [address] 39743- 3098 Apr, [facility] [address] [place] [id number] [place] [address] 85511- 2991 Mar, [facility] [address] [place] [id number] [place] [address] 01317- 8810 February, [facility] [address] [place] [address] 07885- 8209 Jan, [facility] [address] [place] [id number] [place] [address] 37539- 4317 Jul, IMMUNIZATIONS No Known Immunizations SOCIAL HISTORY Never Assessed REASON FOR VISIT Lab (walk-in) PLAN OF CARE VITAL SIGNS MEDICATIONS Unknown Medications RESULTS Name Result Date Reference Range CBC 2017-04-28 WBC 9.9 3.4-10.8 RBC 4.90 3.77-5.28 Hemoglobin 14.3 11.1-15.9 Hematocrit 43.4 34.0-46.6 MCV 89 79-97 MCH 29.2 26.6-33.0 MCHC 32.9 31.5-35.7 RDW 15.4 12.3-15.4 Platelets 381 150-379 Neutrophils 49 Lymphs 42 Monocytes 6 Eos 2 Basos 1 Neutrophils (Absolute) 4.8 1.4-7.0 Lymphs (Absolute) 4.2 0.7-3.1 Monocytes(Absolute) 0.6 0.1-0.9 Eos (Absolute) 0.2 0.0-0.4 Baso (Absolute) 0.1 0.0-0.2 Immature Granulocytes 0 Immature Grans (Abs) 0.0 0.0-0.1 LIPID PANEL 2017-04-28 Cholesterol, Total 217 100-199 Triglycerides 372 0-149 HDL Cholesterol 49 >39 VLDL Cholesterol Zen 74 5-40 LDL Cholesterol Calc 94 0-99 CMP 2017-04-28 Glucose, Serum 96 65-99 BUN 35 6-24 Creatinine, Serum 1.55 0.57-1.00 eGFR If NonAfricn Am 37 >59 eGFR If Africn Am 43 >59 BUN/Creatinine Ratio 23 9-23 Sodium, Serum 143 134-144 Potassium, Serum 5.4 3.5-5.2 Chloride, Serum 101 96-106 Carbon Dioxide, Total 19 18-29 Calcium, Serum 9.4 8.7-10.2 Protein, Total, Serum 7.5 6.0-8.5 Albumin, Serum 4.4 3.5-5.5 Globulin, Total 3.1 1.5-4.5 A/G Ratio 1.4 1.2-2.2 Bilirubin, Total 0.3 0.0-1.2 Alkaline Phosphatase, S 63 39-117 AST (SGOT) 15 0-40 ALT (SGPT) 20 0-32 PROCEDURES Procedure Date Ordered Result Body Site COMPLETE CBC W/AUTO DIFF WBC April 28, 2017 LIPID PANEL April 28, 2017 VENIPUNCT, ROUTINE* April 28, 2017 COMPREHEN METABOLIC PANEL April 28, 2017 INSTRUCTIONS MEDICATIONS ADMINISTERED No Known Medications MEDICAL (GENERAL) HISTORY Type Description Date Medical History 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
--- OUTSIDE RECORDS SUMMARY | 2018-02-20 21:11 | XMS REPORT ---
Author Author TRACEE LANGE Organization [facility] Address [address] [place] [address] Care Team Providers Care Online Communications Specialist Name Role Phone TRACEE LANGE Unavailable PROBLEMS Type Condition ICD9-CM Code BRD06-WR Code Onset Dates Condition Status SNOMED Code Problem Intracranial injury, without loss of consciousness, subsequent encounter S06.9X0D Active 335405750 Problem Epileptic seizure, generalized G40.309 Active 52191375 Problem GERD (gastroesophageal reflux disease) K21.9 Active 053336830 Problem Lumbar neuritis M54.16 Active 355158925 Problem Thoracic neuritis M54.14 Active 46049390 Problem Cardiomyopathy I42.9 Active 78316778 Problem Hypertension, benign I10 Active 97990104 ALLERGIES No Information ENCOUNTERS Encounter Location Date Diagnosis [place] [address] [address] Jan, [place] [address] [address]- [address] Dec, Thoracic neuritis M54.14 ; Lumbar neuritis M54.16 and Epileptic seizure, generalized G40.309 [place] [address] [address] [place] [id number] [place] [address]662- 1644 Sep, Epileptic seizure, generalized G40.309 and Lumbar neuritis M54.16 [place] [address] [address]- 6[address] Aug, Thoracic neuritis M54.14 and Lumbar neuritis M54.16 [place] [address] [address]- 0[address] Jun, [place] [address] [address]- [address]854 Jun, Abscess of leg, left L02.416 [facility] [address] [place] [id number] [place] [address] 47573- 0815 May, Lumbar neuritis M54.16 ; Thoracic neuritis M54.14 ; Intracranial injury, without loss of consciousness, subsequent encounter S06.9X0D and Cardiomyopathy I42.9 [facility] [address] [place] [id number] [place] [address] 15884- 2141 Apr, Lumbar neuritis M54.16 [facility] [address] [address]- 9[address] Apr, [facility] [address] 89861- 5497 Apr, Elevated liver enzymes R74.8 and Renal insufficiency N28.9 [place] [address] [place] [id number] [place] [address] 90375- 1360 Apr, Lumbar neuritis M54.16 ; Thoracic neuritis M54.14 ; Hypertension, benign I10 ; Cardiomyopathy I42.9 and Epileptic seizure, generalized G40.309 [facility] [address] [place] [id number] [place] [address] 55537- 2187 Mar, [place] [address] 78338- 7228 February, [facility] [address] [place] [id number] [place] [address] 08914- 8317 February, Lumbar neuritis M54.16 ; Thoracic neuritis M54.14 ; Hypertension, benign I10 ; Cardiomyopathy I42.9 and Epileptic seizure, generalized G40.309 [facility] [address] [place] [id number] [place] [address] 54068- 2371 Dec, [facility] [address] 30686- 5526 Sep, Epigastric mass R19.06 [facility] [address] [place] [id number] [place] [address] 51940- 7982 Sep, Epigastric mass R19.06 [place] [address] 72782- 6601 Sep, [place] [address] 68643- 1885 Sep, Epigastric mass R19.06 [place] [address] 28672- 1883 Sep, Epigastric mass R19.06 and Lung mass R91.8 [facility] [address] [address] -[address] Jul, Shortness of breath R06.02 ; Dysuria R30.0 and Acute bronchitis, unspecified organism J20.9 [place] [address] 60157- 4757 Jul, [place] [address] 27010- 7955 Jun, Seizures R56.9 ; Thoracic neuritis M54.14 ; Lumbar neuritis M54.16 and GERD (gastroesophageal reflux disease) K21.9 [facility] [place] [address] [address] -[address] Jan, [place] [address] [address]29- 3652 Sep, [address] [address]- [address] Sep, Intracranial injury, without loss of consciousness, subsequent encounter S06.9X0D ; Cardiomyopathy I42.9 ; GERD (gastroesophageal reflux disease) K21.9 ; Hypertension, benign I10 ; Thoracic neuritis M54.14 and Lumbar neuritis M54.[address] 69[address]- 8560 Mar, [place] [address] 83882- 5448 Mar, Coronary atherosclerosis of unspecified type of vessel, [place] or graft 414.00 ; Unspecified essential hypertension 401.9 ; Thoracic or lumbosacral neuritis or radiculitis, unspecified 724.4 and Other convulsions 780.39 [facility] [address] [place] [id number] [place] [address] 45228- 3492 14 Jan, 2015 [facility] [address] [place] [id number] [place] [address] 51528- 4331 Jan, [facility] [address] [place] [id number] [place] [address] 28727- 8470 Nov, [facility] [address] [place] [id number] [place] [address] 08287- 9822 Nov, [facility] [address] [place] [id number] [place] [address] 08837- 9903 Nov, [facility] [address] [place] [id number] [place] [address] 78736- 1153 Nov, [facility] [address] [place] [id number] [place] [address] 49319- 7833 Nov, [facility] [id number] [place] [address] 28487- 2532 Nov, [facility] [address] [place] [address] 00939- 0722 Nov, [facility] [address] [address]- 5149 Nov, [facility] [address] [address]- 9840 Nov, [facility] [address] [place] [id number] [place] [address] 61584- 1806 Nov, [facility] [address] [place] [id number] [address] Sep, [facility] [address] 9[address] Sep, [facility] [place] [facility] [address] [id number] [place] [address]- 2940 Aug, [facility] [place] [facility] [address] [id number] [place] [address]- 9301 Aug, [facility] [place] [facility] [address] [id number] [place] [address]- 7887 Aug, [facility] [place] [facility] [address] [id number] [place] [address]- 6480 Aug, [facility] [place] [facility] [address] [id number] [place] [address]- 5535 Jul, [facility] [place] [facility] [address] [id number] [place] [address]- 6898 Jul, [facility] [place] [facility] [address] [id number] [place] [address]- 7195 Jul, [facility] [place] [facility] [address] [id number] [place] [address]- 3342 Jul, [facility] [place] [facility] [address] [id number] [place] [address]- 4184 Jun, [facility] [place] [facility] [address] [id number] [place] [address]- 6944 Jun, [facility] [place] [facility] [address] [id number] [place] [address]- 8635 Jun, [facility] [place] [facility] [address] [id number] [place] [address]- 2572 May, [facility] [place] [facility] [address] [id number] [place] [address]- 4825 May, [facility] [place] [facility] [address] [id number] [place] [address]- 8790 May, [facility] [place] [facility] [address] [id number] [place] [address]- 5823 May, [facility] [place] [facility] [address] [id number] [place] [address]- 3921 May, [facility] [place] [facility] [address] [id number] [place] [address]- 0920 May, [facility] [place] [facility] [address] [id number] [place] [address]- 9283 May, [facility] [place] [facility] [address] [id number] [place] [address]- 4949 May, [facility] [place] [facility] [address] [id number] [place] [address]- 9896 February, [facility] [place] [facility] [address] [id number] [place] [address]- 1436 February, [facility] [place] [facility] [address] [id number] [place] [address]- 4999 Jan, [facility] [place] [facility] [address] [id number] [place] [address]- 1381 Jan, [facility] [place] [facility] [address] [id number] [place] [address]- 0985 Jan, [facility] [place] [facility] [address] [id number] [place] [address]- 0684 Jan, [facility] [place] [facility] [address] [id number] [place] [address]- 6548 Nov, [facility] [place] [facility] [address] [id number] [place] [address]- 8853 Nov, [facility] [place] [facility] [address] [id number] [place] [address]- 0444 Nov, [facility] [place] [facility] [address] [id number] [place] 7347 Nov, [facility] [place] [facility] [address] [id number] [place] [address]- 3559 Sep, [facility] [place] [facility] [address] [id number] [place] [address]- 6783 Sep, [facility] [place] [facility] [address] [id number] [place] [address]- 2706 07 Sep, 2013 [facility] [address] [id number] [place] [address]- [address] Sep, [facility] [address] [id number] [place] [address]- 0816 Sep, [facility] [address] [id number] [place] [address]- [address] Sep, [facility] [address] [id number] [place] [address]- 4357 Jul, [facility] [address] [id number] [place] [address]- 7895 Jul, [facility] [address] [id number] [place] [address]- 4594 Jun, [facility] [address] [id number] [place] [address]- 7470 Jun, [facility] [address] [id number] [place] [address]- 6447 Jun, [facility] [address] [id number] [place] [address]- 4810 May, [address] [id number] May [facility] [address] [id number] [place] [address]- 4107 May, [facility] [address] [id number] [place] [address]- [address] May, [facility] [address] [id number] [place] [address]- [address] May, [facility] [address] [id number] [place] [address]- 6496 May, [facility] [address] [id number] [place] [address]- 6935 May, [facility] [place] [facility] [address] [id number] [place] [address]- 2073 31 Apr, 2013 [facility] [address] [id number] [place] [address]- 8557 30 Apr, 2013 [facility] [place] [facility] [address] [id number] [place] [address]- 3634 Apr, [facility] [place] [facility] [address] [id number] [place] [address]- 5784 Apr, [facility] [place] [facility] [address] [id number] [place] [address]- 0991 Mar, [facility] [place] [facility] [address] [id number] [place] [address]- 1455 February, [facility] [place] [facility] [address] [id number] [place] [address]- 9770 Jan, [facility] [place] [facility] [address] [id number] [place] [address]- 2557 Dec, [facility] [place] [facility] [address] [id number] [place] [address]- 9520 Dec, [facility] [place] [facility] [address] [id number] [place] [address]- 5406 Dec, [facility] [place] [facility] [address] [id number] [place] [address]- 7011 Nov, [facility] [place] [facility] [address] [id number] [place] [address]- 5973 Nov, [facility] [place] [facility] [address] [id number] [place] [address]- 3454 Nov, [facility] [place] [facility] [address] [id number] [place] [address]- 6633 Oct, [facility] [place] [facility] [address] [id number] [place] [address]- 1789 Oct, [facility] [place] [facility] [address] [id number] [place] [address]- 6937 Sep, [facility] [place] [facility] [address] [id number] [place] [address]- 8786 Sep, [facility] [place] [facility] [address] [id number] [place] [address]- 6226 Sep, [facility] [place] [facility] [address] [id number] [place] [address]- 1816 Sep, [facility] [place] [facility] [address] [id number] [place] [address]- 3359 Sep, [facility] [place] [facility] [address] [id number] [place] [address]- 6626 Sep, [facility] [place] [facility] [address] [id number] [place] [address]- 7972 Aug, [facility] [place] [facility] [address] [id number] [place] [address]- 9153 Aug, [facility] [place] [facility] [address] [id number] [place] [address]- 6812 Aug, [facility] [place] [facility] [address] [id number] [place] [address]- 2673 Aug, [facility] [place] [facility] [address] [id number] [place] [address]- 0629 Aug, [facility] [place] [facility] [address] [id number] [place] [address]- 3395 Aug, [facility] [place] [facility] [address] [id number] [place] [address]- 6773 Aug, [facility] [place] [facility] [address] [id number] [place] [address]- 9354 Aug, [facility] [place] [facility] [address] [id number] [place] [address]- 6841 Aug, [facility] [place] [facility] [address] [id number] [place] [address]- 7502 Aug, [facility] [place] [facility] [address] [id number] [place] [address]- 6304 Jul, 2011 [facility] [place] [facility] [address] [id number] [place] [address]- 9572 Jul, 2011 [facility] [place] [facility] [address] [id number] [place] [address]- 6588 Jul, 2011 [facility] [place] [facility] [address] [id number] [place] [address]- 4195 Jul, [facility] [place] [facility] [address] [id number] [place] [address]- 4505 Jul, [facility] [place] [facility] [address] [id number] [place] [address], [place] [address]- 1115 Jul, [facility] [place] [facility] [address] [id number] [place] [address]- 2885 Jul, [facility] [place] [facility] [address] [id number] [place] [address]- 7678 Jul, [facility] [place] [facility] [address] [id number] [place] [address]- 5865 18 Jul, 2012 [facility] [place] [facility] [address] [id number] [place] [address]- 0654 Jul, [facility] [place] [facility] [address] [id number] [place] [address]- 9400 Jul, [facility] [place] [facility] [address] [id number] [place] [address]- 5450 Jul, [facility] [place] [facility] [address] [id number] [place] [address]- 4073 Jul, [facility] [place] [facility] [address] [id number] [place] [address]- 9425 Jul, [facility] [place] [facility] [address] [id number] [place] [address]- 3316 Jul, [facility] [place] [facility] [address] [id number] [place] [address]- 8323 Jun, [facility] [place] [facility] [address] [id number] [place] [address]- 2073 Jun, [facility] [place] [facility] [address] [id number] [place] [address]- 7948 Jun, [facility] [place] [facility] [address] [id number] [place] [address]- 6072 May, [facility] [place] [facility] [address] [id number] [place] [address]- 9766 May, [facility] [place] [facility] [address] [id number] [place] 2944 Mar, [facility] [place] [facility] [address] [id number] [place] [address]- 1756 Mar, [facility] [place] [facility] [address] [id number] [place] [address]- 9086 February, [facility] [place] [facility] [address] [id number] [place] [address]- 0049 February, [facility] [place] [facility] [address] [id number] [place] [address]- 9781 Nov, [facility] [place] [facility] [address] [id number] [place] [address]- 4120 Oct, [facility] [place] [facility] [address] [id number] [place] [address]- 6426 Oct, [facility] [place] [facility] [address] [id number] [place] [address]- 7828 Oct, [facility] [place] [facility] [address] [id number] [place] [address]- 1412 Aug, [facility] [place] [facility] [address] [id number] [place] [address]- 9006 Jul, [facility] [place] [facility] [address] [id number] [place] [address]- 0306 Sep, [facility] [place] [facility] [id number] [address]- 7930 08 Aug, 2010 [facility] [address] [address]- 7209 Jul, [facility] [address] [address]- 4462 14 Apr, 2010 [facility] [address] [place] [id number] [place] [address] 11836- 2006 February, [facility] [address] [place] [id number] [place] [address] 54299- 5321 Sep, [facility] [address] [place] [id number] [place] [address] 06761- 3006 Sep, [facility] [address] [place] [id number] [place] [address] 97776- 6165 Sep, [facility] [address] [place] [id number] [place] [address] 09099- 4385 Apr, [facility] [address] [place] [id number] [place] [address] 62088- 9753 Mar, [facility] [address] [place] [id number] [place] [address] 79316- 8099 February, [facility] [address] [address]- 9126 Jan, [facility] [id number] [place] [address] 43274- 5420 Jul, IMMUNIZATIONS No Known Immunizations SOCIAL HISTORY Never Assessed REASON FOR VISIT PLAN OF CARE VITAL SIGNS MEDICATIONS Unknown Medications RESULTS No Results PROCEDURES No Known procedures INSTRUCTIONS MEDICATIONS ADMINISTERED No Known Medications MEDICAL (GENERAL) HISTORY Type Description Date Medical History 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
--- OUTSIDE RECORDS SUMMARY | 2018-02-20 21:14 | XMS REPORT | Continuity of Care Document ---
Demographics Preferred Language Unknown Marital Status Unknown Amish Affiliation Unknown Race Unknown Ethnic Group Unknown Author Author [facility] Address Unknown Phone Unavailable Allergies Active Description Code Type Severity Reaction Onset Reported/Identified Relationship to Patient Clinical Status Yes nitrous oxide [id number] Drug Allergy Unknown N/A 06/08/2007 Yes AILEEN Inhibitors [id number] Drug Allergy Unknown N/A 05/25/2014 Medications There is no data. Problems Date Dx Coded Attending Type Code Diagnosis Diagnosed By 08/08/2008 KRANTHI PRECIADO MD 599.0 Urinary Tract Infection 08/08/2008 599.0 Urinary Tract Infection 08/08/2008 599.0 Urinary Tract Infection 08/08/2008 TRACEE LANGE APRN 599.0 Urinary Tract Infection 08/08/2008 TRACEE LANGE APRN 599.0 Urinary Tract Infection 08/08/2008 599.0 Urinary Tract Infection 08/08/2008 599.0 Urinary Tract Infection 08/08/2008 KRANTHI PRECIADO MD 599.0 Urinary Tract Infection 08/08/2008 KRANTHI PRECIADO MD 599.0 Urinary Tract Infection 08/08/2008 TRACEE LANGE APRN 599.0 Urinary Tract Infection 08/08/2008 TRACEE LANGE APRN 599.0 Urinary Tract Infection 08/08/2008 TRACEE LANGE APRN 599.0 Urinary Tract Infection 08/08/2008 DEGROOT DO, GAVI K 599.0 Urinary Tract Infection 08/08/2008 DEGROOT DO, GAVI K 599.0 Urinary Tract Infection 08/08/2008 TRACEE LANGE APRN 599.0 Urinary Tract Infection 08/08/2008 TRACEE LANGE APRN 599.0 Urinary Tract Infection 08/08/2008 KRANTHI PRECIADO MD 599.0 Urinary Tract Infection 01/25/2009 KRANTHI PRECIADO MD 682.9 Cellulitis And Abscess Of Unspecified Sites 01/25/2009 682.9 Cellulitis And Abscess Of Unspecified Sites 01/25/2009 682.9 Cellulitis And Abscess Of Unspecified Sites 01/25/2009 TRACEE LANGE APRN 682.9 Cellulitis And Abscess Of Unspecified Sites 01/25/2009 TRACEE LANGE APRN 682.9 Cellulitis And Abscess Of Unspecified Sites 01/25/2009 682.9 Cellulitis And Abscess Of Unspecified Sites 01/25/2009 682.9 Cellulitis And Abscess Of Unspecified Sites 01/25/2009 KRANTHI PRECIADO MD 682.9 Cellulitis And Abscess Of Unspecified Sites 01/25/2009 KRANTHI PRECIADO MD 682.9 Cellulitis And Abscess Of Unspecified Sites 01/25/2009 TRACEE LANGE APRN 682.9 Cellulitis And Abscess Of Unspecified Sites 01/25/2009 TRACEE LANGE APRN 682.9 Cellulitis And Abscess Of Unspecified Sites 01/25/2009 TRACEE LANGE APRN 682.9 Cellulitis And Abscess Of Unspecified Sites 01/25/2009 DEGROOT DO, GAVI K 682.9 Cellulitis And Abscess Of Unspecified Sites 01/25/2009 DEGROOT DO, GAVI K 682.9 Cellulitis And Abscess Of Unspecified Sites 01/25/2009 TRACEE LANGE APRN 682.9 Cellulitis And Abscess Of Unspecified Sites 01/25/2009 TRACEE LANGE APRN 682.9 Cellulitis And Abscess Of Unspecified Sites 01/25/2009 KRANTHI PRECIADO MD 682.9 Cellulitis And Abscess Of Unspecified Sites 02/21/2009 KRANTHI PRECIADO MD 466.0 Bronchitis, Acute 02/21/2009 466.0 Bronchitis, Acute 02/21/2009 466.0 Bronchitis, Acute 02/21/2009 TRACEE LANGE APRN 466.0 Bronchitis, Acute 02/21/2009 TRACEE LANGE APRN 466.0 Bronchitis, Acute 02/21/2009 466.0 Bronchitis, Acute 02/21/2009 466.0 Bronchitis, Acute 02/21/2009 KRANTHI PRECIADO MD 466.0 Bronchitis, Acute 02/21/2009 KRANTHI PRECIADO MD 466.0 Bronchitis, Acute 02/21/2009 TRACEE LANGE APRN 466.0 Bronchitis, Acute 02/21/2009 TRACEE LANGE APRN 466.0 Bronchitis, Acute 02/21/2009 TRACEE LANGE APRN 466.0 Bronchitis, Acute 02/21/2009 DEGROOT DO, GAVI K 466.0 Bronchitis, Acute 02/21/2009 DEGROOT DO, GAVI K 466.0 Bronchitis, Acute 02/21/2009 TRACEE LANGE APRN 466.0 Bronchitis, Acute 02/21/2009 TRACEE LANGE APRN 466.0 Bronchitis, Acute 02/21/2009 KRANTHI PRECIADO MD 466.0 Bronchitis, Acute 03/23/2009 KRANTHI PRECIADO MD 536.8 DYSPEPSIA 03/23/2009 KRANTHI PRECIADO MD 787.02 Nausea 03/23/2009 KRANTHI PRECIADO MD 789.01 Abdominal Pain In The Right Upper Belly (ruq) 03/23/2009 536.8 DYSPEPSIA 03/23/2009 787.02 Nausea 03/23/2009 789.01 Abdominal Pain In The Right Upper Belly (ruq) 03/23/2009 536.8 DYSPEPSIA 03/23/2009 787.02 Nausea 03/23/2009 789.01 Abdominal Pain In The Right Upper Belly (ruq) 03/23/2009 TRACEE LANGE APRN 536.8 DYSPEPSIA 03/23/2009 TRACEE LANGE APRN 787.02 Nausea 03/23/2009 TRACEE LANGE APRN 789.01 Abdominal Pain In The Right Upper Belly (ruq) 03/23/2009 TRACEE LANGE APRN 536.8 DYSPEPSIA 03/23/2009 TRACEE LANGE APRN 787.02 Nausea 03/23/2009 TRACEE LANGE APRN 789.01 Abdominal Pain In The Right Upper Belly (ruq) 03/23/2009 536.8 DYSPEPSIA 03/23/2009 787.02 Nausea 03/23/2009 789.01 Abdominal Pain In The Right Upper Belly (ruq) 03/23/2009 536.8 DYSPEPSIA 03/23/2009 787.02 Nausea 03/23/2009 789.01 Abdominal Pain In The Right Upper Belly (ruq) 03/23/2009 KRANTHI PRECIADO MD 536.8 DYSPEPSIA 03/23/2009 KRANTHI PRECIADO MD 787.02 Nausea 03/23/2009 KRANTHI PRECIADO MD 789.01 Abdominal Pain In The Right Upper Belly (ruq) 03/23/2009 KRANTHI PRECIADO MD 536.8 DYSPEPSIA 03/23/2009 KRANTHI PRECIADO MD 787.02 Nausea 03/23/2009 KRANTHI PRECIADO MD 789.01 Abdominal Pain In The Right Upper Belly (ruq) 03/23/2009 TRACEE LANGE APRN 536.8 DYSPEPSIA 03/23/2009 TRACEE LANGE APRN 787.02 Nausea 03/23/2009 TRACEE LANGE APRN 789.01 Abdominal Pain In The Right Upper Belly (ruq) 03/23/2009 TRACEE LANGE APRN 536.8 DYSPEPSIA 03/23/2009 TRACEE LANGE APRN 787.02 Nausea 03/23/2009 TRACEE LANGE APRN 789.01 Abdominal Pain In The Right Upper Belly (ruq) 03/23/2009 TRACEE LANGE APRN 536.8 DYSPEPSIA 03/23/2009 TRACEE LANGE APRN 787.02 Nausea 03/23/2009 TRACEE LANGE APRN 789.01 Abdominal Pain In The Right Upper Belly (ruq) 03/23/2009 MIKAYLA LANGE GAVI K 536.8 DYSPEPSIA 03/23/2009 MIKAYLA LANGE GAVI K 787.02 Nausea 03/23/2009 DEGROOT DO GAVI K 789.01 Abdominal Pain In The Right Upper Belly (ruq) 03/23/2009 DEGROOT DO GAVI K 536.8 DYSPEPSIA 03/23/2009 DEGROOT DO GAVI K 787.02 Nausea 03/23/2009 DEGROOT DO, GAVI K 789.01 Abdominal Pain In The Right Upper Belly (ruq) 03/23/2009 TRACEE LANGE APRN 536.8 DYSPEPSIA 03/23/2009 TRACEE LANGE APRN 787.02 Nausea 03/23/2009 TRACEE LANGE APRN 789.01 Abdominal Pain In The Right Upper Belly (ruq) 03/23/2009 TRACEE LANGE APRN 536.8 DYSPEPSIA 03/23/2009 TRACEE LANGE APRN 787.02 Nausea 03/23/2009 TRACEE LANGE APRN 789.01 Abdominal Pain In The Right Upper Belly (ruq) 03/23/2009 KRANTHI PRECIADO MD 536.8 DYSPEPSIA 03/23/2009 KRANTHI PRECIADO MD 787.02 Nausea 03/23/2009 KRANTHI PRECIADO MD9.01 Abdominal Pain In The Right Upper Belly (ruq) 04/26/2009 KRANTHI PRECIADO MD 786.50 Chest Pain 04/26/2009 786.50 Chest Pain 04/26/2009 786.50 Chest Pain 04/26/2009 TARCEE LANGE APRN 786.50 Chest Pain 04/26/2009 TRACEE LANGE APRN T 786.50 Chest Pain 04/26/2009 786.50 Chest Pain 04/26/2009 786.50 Chest Pain 04/26/2009 KRANTHI PRECIADO MD 786.50 Chest Pain 04/26/2009 KRANTHI PRECIADO MD 786.50 Chest Pain 04/26/2009 TRACEE LANGE APRN T 786.50 Chest Pain 04/26/2009 TRACEE LANGE APRN 786.50 Chest Pain 04/26/2009 TRACEE LANGE APRN 786.50 Chest Pain 04/26/2009 DEGROOT DO, GAVI K 786.50 Chest Pain 04/26/2009 DEGROOT DO, GAVI K 786.50 Chest Pain 04/26/2009 TRACEE LANGE APRN 786.50 Chest Pain 04/26/2009 TRACEE LANGE APRN 786.50 Chest Pain 04/26/2009 KRANTHI PRECIADO MD 786.50 Chest Pain 10/04/2009 KRANTHI PRECIADO MD 840.9 SPRAIN/STRAIN SHOULDER/ARM 10/04/2009 840.9 SPRAIN/STRAIN SHOULDER/ARM 10/04/2009 840.9 SPRAIN/STRAIN SHOULDER/ARM 10/04/2009 TRACEE LANGE APRN T 840.9 SPRAIN/STRAIN SHOULDER/ARM 10/04/2009 TRACEE LANGE APRN T 840.9 SPRAIN/STRAIN SHOULDER/ARM 10/04/2009 840.9 SPRAIN/STRAIN SHOULDER/ARM 10/04/2009 840.9 SPRAIN/STRAIN SHOULDER/ARM 10/04/2009 KRANTHI PRECIADO MD 840.9 SPRAIN/STRAIN SHOULDER/ARM 10/04/2009 KRANTHI PRECIADO MD 840.9 SPRAIN/STRAIN SHOULDER/ARM 10/04/2009 TRACEE LANGE APRN T 840.9 SPRAIN/STRAIN SHOULDER/ARM 10/04/2009 TRACEE LANGE APRN T 840.9 SPRAIN/STRAIN SHOULDER/ARM 10/04/2009 TRACEE LANGE APRN T 840.9 SPRAIN/STRAIN SHOULDER/ARM 10/04/2009 DEGROOT DO, GAVI K 840.9 SPRAIN/STRAIN SHOULDER/ARM 10/04/2009 DEGROOT DO, GAVI K 840.9 SPRAIN/STRAIN SHOULDER/ARM 10/04/2009 TRACEE LANGE APRN 840.9 SPRAIN/STRAIN SHOULDER/ARM 10/04/2009 TRACEE LANGE APRN 840.9 SPRAIN/STRAIN SHOULDER/ARM 10/04/2009 KRANTHI PRECIADO MD 840.9 SPRAIN/STRAIN SHOULDER/ARM 02/14/2010 KRANTHI PRECIADO MD 789.00 Abdominal Pain Unspecified Site 02/14/2010 789.00 Abdominal Pain Unspecified Site 02/14/2010 789.00 Abdominal Pain Unspecified Site 02/14/2010 TRACEE LANGE APRN 789.00 Abdominal Pain Unspecified Site 02/14/2010 TRACEE LANGE APRN 789.00 Abdominal Pain Unspecified Site 02/14/2010 789.00 Abdominal Pain Unspecified Site 02/14/2010 789.00 Abdominal Pain Unspecified Site 02/14/2010 KRANTHI PRECIADO MD 789.00 Abdominal Pain Unspecified Site 02/14/2010 KRANTHI PRECIADO MD 789.00 Abdominal Pain Unspecified Site 02/14/2010 TRACEE LANGE APRN 789.00 Abdominal Pain Unspecified Site 02/14/2010 TRACEE LANGE APRN 789.00 Abdominal Pain Unspecified Site 02/14/2010 TRACEE LANGE APRN 789.00 Abdominal Pain Unspecified Site 02/14/2010 DEGROOT DO, GAVI K 789.00 Abdominal Pain Unspecified Site 02/14/2010 DEGROOT DO, GAVI K 789.00 Abdominal Pain Unspecified Site 02/14/2010 TRACEE LANGE APRN 789.00 Abdominal Pain Unspecified Site 02/14/2010 TRACEE LANGE APRN 789.00 Abdominal Pain Unspecified Site 02/14/2010 KRANTHI PRECIADO MD 789.00 Abdominal Pain Unspecified Site 03/09/2010 KRANTHI PRECIADO MD 719.46 PAIN IN JOINT INVOLVING LOWER LEG 03/09/2010 KRANTHI PRECIADO MD 844.9 SPRAIN/STRAIN KNEE/LEG 03/09/2010 719.46 PAIN IN JOINT INVOLVING LOWER LEG 03/09/2010 844.9 SPRAIN/STRAIN KNEE/LEG 03/09/2010 719.46 PAIN IN JOINT INVOLVING LOWER LEG 03/09/2010 844.9 SPRAIN/STRAIN KNEE/LEG 03/09/2010 TRACEE LANGE APRN 719.46 PAIN IN JOINT INVOLVING LOWER LEG 03/09/2010 TRACEE LANGE APRN 844.9 SPRAIN/STRAIN KNEE/LEG 03/09/2010 TRACEE LANGE APRN 719.46 PAIN IN JOINT INVOLVING LOWER LEG 03/09/2010 TRACEE LANGE APRN 844.9 SPRAIN/STRAIN KNEE/LEG 03/09/2010 719.46 PAIN IN JOINT INVOLVING LOWER LEG 03/09/2010 844.9 SPRAIN/STRAIN KNEE/LEG 03/09/2010 719.46 PAIN IN JOINT INVOLVING LOWER LEG 03/09/2010 844.9 SPRAIN/STRAIN KNEE/LEG 03/09/2010 KRANTHI PRECIADO MD 719.46 PAIN IN JOINT INVOLVING LOWER LEG 03/09/2010 KRANTHI PRECIADO MD 844.9 SPRAIN/STRAIN KNEE/LEG 03/09/2010 KRANTHI PRECIADO MD 719.46 PAIN IN JOINT INVOLVING LOWER LEG 03/09/2010 KRANTHI PRECIADO MD 844.9 SPRAIN/STRAIN KNEE/LEG 03/09/2010 TRACEE LANGE APRN 719.46 PAIN IN JOINT INVOLVING LOWER LEG 03/09/2010 TRACEE LANGE APRN 844.9 SPRAIN/STRAIN KNEE/LEG 03/09/2010 TRACEE LANGE APRN 719.46 PAIN IN JOINT INVOLVING LOWER LEG 03/09/2010 TRACEE LANGE APRN 844.9 SPRAIN/STRAIN KNEE/LEG 03/09/2010 TRACEE LANGE APRN 719.46 PAIN IN JOINT INVOLVING LOWER LEG 03/09/2010 TRACEE LANGE APRN 844.9 SPRAIN/STRAIN KNEE/LEG 03/09/2010 DEGROOT DO, GAVI K 719.46 PAIN IN JOINT INVOLVING LOWER LEG 03/09/2010 DEGROOT DO, GVAI K 844.9 SPRAIN/STRAIN KNEE/LEG 03/09/2010 DEGROOT DO, GAVI K 719.46 PAIN IN JOINT INVOLVING LOWER LEG 03/09/2010 DEGROOT DO, GAVI K 844.9 SPRAIN/STRAIN KNEE/LEG 03/09/2010 TRACEE LANGE APRN 719.46 PAIN IN JOINT INVOLVING LOWER LEG 03/09/2010 TRACEE LANGE APRN 844.9 SPRAIN/STRAIN KNEE/LEG 03/09/2010 TRACEE LANGE APRN 719.46 PAIN IN JOINT INVOLVING LOWER LEG 03/09/2010 TRACEE LANGE APRN 844.9 SPRAIN/STRAIN KNEE/LEG 03/09/2010 KRANTHI PRECIADO MD 719.46 PAIN IN JOINT INVOLVING LOWER LEG 03/09/2010 KRANTHI PRECIADO MD 844.9 SPRAIN/STRAIN KNEE/LEG 04/25/2010 KRANTHI PRECIADO MD 786.52 Painful Respiration 04/25/2010 786.52 Painful Respiration 04/25/2010 786.52 Painful Respiration 04/25/2010 TRACEE LANGE APRN 786.52 Painful Respiration 04/25/2010 TRACEE LANGE APRN 786.52 Painful Respiration 04/25/2010 786.52 Painful Respiration 04/25/2010 786.52 Painful Respiration 04/25/2010 KRANTHI PRECIADO MD 786.52 Painful Respiration 04/25/2010 KRANTHI PRECIADO MD 786.52 Painful Respiration 04/25/2010 TRACEE LANGE APRN 786.52 Painful Respiration 04/25/2010 TRACEE LANGE APRN 786.52 Painful Respiration 04/25/2010 TRACEE LANGE APRN 786.52 Painful Respiration 04/25/2010 DEGROOT DO, GAVI K 786.52 Painful Respiration 04/25/2010 DEGROOT DO, GAVI K 786.52 Painful Respiration 04/25/2010 TRACEE LANGE APRN 786.52 Painful Respiration 04/25/2010 TRACEE LANGE APRN 786.52 Painful Respiration 04/25/2010 KRANTHI PRECIADO MD 786.52 Painful Respiration 08/20/2010 KRANTHI PRECIADO MD 465.9 Acute Upper Respiratory Infections Of Unspecified Site 08/20/2010 KRANTHI PRECIADO MD 491.21 Obstructive Chronic Bronchitis With (acute) Exacerbation 08/20/2010 465.9 Acute Upper Respiratory Infections Of Unspecified Site 08/20/2010 491.21 Obstructive Chronic Bronchitis With (acute) Exacerbation 08/20/2010 465.9 Acute Upper Respiratory Infections Of Unspecified Site 08/20/2010 491.21 Obstructive Chronic Bronchitis With (acute) Exacerbation 08/20/2010 TRACEE LANGE APRN 465.9 Acute Upper Respiratory Infections Of Unspecified Site 08/20/2010 TRACEE LANGE APRN 491.21 Obstructive Chronic Bronchitis With (acute) Exacerbation 08/20/2010 TRACEE LANGE APRN 465.9 Acute Upper Respiratory Infections Of Unspecified Site 08/20/2010 TRACEE LANGE APRN 491.21 Obstructive Chronic Bronchitis With (acute) Exacerbation 08/20/2010 465.9 Acute Upper Respiratory Infections Of Unspecified Site 08/20/2010 491.21 Obstructive Chronic Bronchitis With (acute) Exacerbation 08/20/2010 465.9 Acute Upper Respiratory Infections Of Unspecified Site 08/20/2010 491.21 Obstructive Chronic Bronchitis With (acute) Exacerbation 08/20/2010 KRANTHI PRECIADO MD 465.9 Acute Upper Respiratory Infections Of Unspecified Site 08/20/2010 KRANTHI PRECIADO MD 491.21 Obstructive Chronic Bronchitis With (acute) Exacerbation 08/20/2010 KRANTHI PRECIADO MD 465.9 Acute Upper Respiratory Infections Of Unspecified Site 08/20/2010 KRANTHI PRECIADO MD 491.21 Obstructive Chronic Bronchitis With (acute) Exacerbation 08/20/2010 TRACEE LANGE APRN 465.9 Acute Upper Respiratory Infections Of Unspecified Site 08/20/2010 TRACEE LANGE APRN 491.21 Obstructive Chronic Bronchitis With (acute) Exacerbation 08/20/2010 TRACEE LANGE APRN 465.9 Acute Upper Respiratory Infections Of Unspecified Site 08/20/2010 TRACEE LANGE APRN 491.21 Obstructive Chronic Bronchitis With (acute) Exacerbation 08/20/2010 TRACEE LANGE APRN 465.9 Acute Upper Respiratory Infections Of Unspecified Site 08/20/2010 TRACEE LANGE APRN 491.21 Obstructive Chronic Bronchitis With (acute) Exacerbation 08/20/2010 DEGROOT DO, GAVI K 465.9 Acute Upper Respiratory Infections Of Unspecified Site 08/20/2010 DEGROOT DO, GAVI K 491.21 Obstructive Chronic Bronchitis With (acute) Exacerbation 08/20/2010 DEGROOT DO, GAVI K 465.9 Acute Upper Respiratory Infections Of Unspecified Site 08/20/2010 DEGROOT DO, GAVI K 491.21 Obstructive Chronic Bronchitis With (acute) Exacerbation 08/20/2010 TRACEE LANGE APRN 465.9 Acute Upper Respiratory Infections Of Unspecified Site 08/20/2010 TRACEE LANGE APRN 491.21 Obstructive Chronic Bronchitis With (acute) Exacerbation 08/20/2010 TRACEE LANGE APRN 465.9 Acute Upper Respiratory Infections Of Unspecified Site 08/20/2010 TRACEE LANGE APRN 491.21 Obstructive Chronic Bronchitis With (acute) Exacerbation 08/20/2010 KRANTHI PRECIADO MD 465.9 Acute Upper Respiratory Infections Of Unspecified Site 08/20/2010 KRANTHI PRECIADO MD 491.21 Obstructive Chronic Bronchitis With (acute) Exacerbation 11/04/2010 Ot 490 BRONCHITIS NOS 11/04/2010 Ot 787.03 VOMITING ALONE 12/19/2010 KRANTHI PRECIADO MD 780.79 Malaise And Fatigue 12/19/2010 780.79 Malaise And Fatigue 12/19/2010 780.79 Malaise And Fatigue 12/19/2010 TRACEE LANGE APRN 780.79 Malaise And Fatigue 12/19/2010 TRACEE LANGE APRN 780.79 Malaise And Fatigue 12/19/2010 780.79 Malaise And Fatigue 12/19/2010 780.79 Malaise And Fatigue 12/19/2010 KRANTHI PRECIADO MD 780.79 Malaise And Fatigue 12/19/2010 KRANTHI PRECIADO MD 780.79 Malaise And Fatigue 12/19/2010 TRACEE LANGE APRN 780.79 Malaise And Fatigue 12/19/2010 TRACEE LANGE APRN 780.79 Malaise And Fatigue 12/19/2010 TRACEE LANGE APRN 780.79 Malaise And Fatigue 12/19/2010 DEGROOT DO, GAVI K 780.79 Malaise And Fatigue 12/19/2010 DEGROOT DO, GAVI K 780.79 Malaise And Fatigue 12/19/2010 TRACEE LANGE APRN 780.79 Malaise And Fatigue 12/19/2010 TRACEE LANGE APRN 780.79 Malaise And Fatigue 12/19/2010 KRANTHI PRECIADO MD 780.79 Malaise And Fatigue 12/29/2010 Ot 305.20 CANNABIS ABUSE-UNSPEC 12/29/2010 Ot 305.73 AMPHETAMINE ABUSE-REMISS 12/29/2010 Ot 345.90 EPILEPSY UNSPEC W/O MENTION INTRACTABLE 12/29/2010 Ot 464.00 ACUTE LARYNGITIS W/O OBSTRUCTION 12/29/2010 Ot 493.22 CHRONIC OBSTRUCTIVE ASTHMA, W (ACUTE) EX 12/29/2010 Ot 596.51 HYPERTONICITY OF BLADDER 12/29/2010 Ot 796.2 ELEV BL PRES W/O HYPERTN 12/29/2010 Ot V12.09 PERSONAL HISTORY OTH SPEC INFECT RIOS 01/07/2011 KRANTHI PRECIADO MD 327.23 OBSTRUCTIVE SLEEP APNEA (ADULT) (PEDIATRIC) 01/07/2011 327.23 OBSTRUCTIVE SLEEP APNEA (ADULT) (PEDIATRIC) 01/07/2011 327.23 OBSTRUCTIVE SLEEP APNEA (ADULT) (PEDIATRIC) 01/07/2011 TRACEE LANGE APRN 327.23 OBSTRUCTIVE SLEEP APNEA (ADULT) (PEDIATRIC) 01/07/2011 TRACEE LANGE APRN 327.23 OBSTRUCTIVE SLEEP APNEA (ADULT) (PEDIATRIC) 01/07/2011 327.23 OBSTRUCTIVE SLEEP APNEA (ADULT) (PEDIATRIC) 01/07/2011 327.23 OBSTRUCTIVE SLEEP APNEA (ADULT) (PEDIATRIC) 01/07/2011 KRANTHI PRECIADO MD 327.23 OBSTRUCTIVE SLEEP APNEA (ADULT) (PEDIATRIC) 01/07/2011 KRANTHI PRECIAOD MD 327.23 OBSTRUCTIVE SLEEP APNEA (ADULT) (PEDIATRIC) 01/07/2011 TRACEE LANGE APRN 327.23 OBSTRUCTIVE SLEEP APNEA (ADULT) (PEDIATRIC) 01/07/2011 TRACEE LANGE APRN 327.23 OBSTRUCTIVE SLEEP APNEA (ADULT) (PEDIATRIC) 01/07/2011 TRACEE LANGE APRN 327.23 OBSTRUCTIVE SLEEP APNEA (ADULT) (PEDIATRIC) 01/07/2011 DEGROOT DO GAVI K 327.23 OBSTRUCTIVE SLEEP APNEA (ADULT) (PEDIATRIC) 01/07/2011 DEGROOT DO GAVI K 327.23 OBSTRUCTIVE SLEEP APNEA (ADULT) (PEDIATRIC) 01/07/2011 TRACEE LANGE APRN 327.23 OBSTRUCTIVE SLEEP APNEA (ADULT) (PEDIATRIC) 01/07/2011 TRACEE LANGE APRN 327.23 OBSTRUCTIVE SLEEP APNEA (ADULT) (PEDIATRIC) 01/07/2011 KRANTHI PRECIADO MD 327.23 OBSTRUCTIVE SLEEP APNEA (ADULT) (PEDIATRIC) 03/03/2011 Ot 780.39 OTHER CONVULSIONS 03/19/2011 KRANTHI PRECIADO MD 780.60 Fever Unspecified 03/19/2011 KRANTHI PRECIADO MD 784.0 Headache 03/19/2011 KRANTHI PRECIADO MD 799.02 HYPOXEMIA 03/19/2011 780.60 Fever Unspecified 03/19/2011 784.0 Headache 03/19/2011 799.02 HYPOXEMIA 03/19/2011 780.60 Fever Unspecified 03/19/2011 784.0 Headache 03/19/2011 799.02 HYPOXEMIA 03/19/2011 ANISA MOLINA TRACEE Nona 780.60 Fever Unspecified 03/19/2011 TRACEE LANGE APRN 784.0 Headache 03/19/2011 TRACEE LANGE APRN 799.02 HYPOXEMIA 03/19/2011 TRACEE LANGE APRN 780.60 Fever Unspecified 03/19/2011 TRACEE LANGE APRN 784.0 Headache 03/19/2011 TRACEE LANGE APRN 799.02 HYPOXEMIA 03/19/2011 780.60 Fever Unspecified 03/19/2011 784.0 Headache 03/19/2011 799.02 HYPOXEMIA 03/19/2011 780.60 Fever Unspecified 03/19/2011 784.0 Headache 03/19/2011 799.02 HYPOXEMIA 03/19/2011 KRANTHI PRECIADO MD 780.60 Fever Unspecified 03/19/2011 OZZY GONZALES, RKANTHI 784.0 Headache 03/19/2011 OZZY GONZALES, KRANTHI 799.02 HYPOXEMIA 03/19/2011 KRANTHI PRECIADO MD 780.60 Fever Unspecified 03/19/2011 KRANTHI PRECIADO MD 784.0 Headache 03/19/2011 KRANTHI PRECIADO MD 799.02 HYPOXEMIA 03/19/2011 ANISA MOLINA TRACEE Nona 780.60 Fever Unspecified 03/19/2011 TRACEE LANGE APRN 784.0 Headache 03/19/2011 TRACEE LANGE APRN 799.02 HYPOXEMIA 03/19/2011 TRACEE LANGE APRN 780.60 Fever Unspecified 03/19/2011 TRACEE LANGE APRN 784.0 Headache 03/19/2011 TRACEE LANGE APRN 799.02 HYPOXEMIA 03/19/2011 TRACEE LANGE APRN 780.60 Fever Unspecified 03/19/2011 TRACEE LANGE APRN 784.0 Headache 03/19/2011 TRACEE LANGE APRN 799.02 HYPOXEMIA 03/19/2011 DEGROOT DO, GAVI K 780.60 Fever Unspecified 03/19/2011 DEGROOT DO, GAVI K 784.0 Headache 03/19/2011 DEGROOT DO, GAVI K 799.02 HYPOXEMIA 03/19/2011 DEGROOT DO, GAVI K 780.60 Fever Unspecified 03/19/2011 DEGROOT DO, GAVI K 784.0 Headache 03/19/2011 DEGROOT DO, GAVI K 799.02 HYPOXEMIA 03/19/2011 TRACEE LANGE APRN 780.60 Fever Unspecified 03/19/2011 TRACEE LANGE APRN 784.0 Headache 03/19/2011 TRACEE LANGE APRN 799.02 HYPOXEMIA 03/19/2011 TRACEE LANGE APRN 780.60 Fever Unspecified 03/19/2011 TRACEE LANGE APRN 784.0 Headache 03/19/2011 TRACEE LANGE APRN 799.02 HYPOXEMIA 03/19/2011 KRANTHI PRECIADO MD 780.60 Fever Unspecified 03/19/2011 KRANTHI PRECIADO MD 784.0 Headache 03/19/2011 KRANTHI PRECIADO MD 799.02 HYPOXEMIA 03/21/2011 Ot 345.90 EPILEPSY UNSPEC W/O MENTION INTRACTABLE 03/21/2011 Ot 491.21 OBSTR CHRONIC BRONCHITIS, W (ACUTE) EXAC 03/21/2011 Ot 530.81 ESOPHAGEAL REFLUX 03/21/2011 Ot 596.51 HYPERTONICITY OF BLADDER 03/24/2011 Ot 345.90 EPILEPSY UNSPEC W/O MENTION INTRACTABLE 03/24/2011 Ot 496 CHR AIRWAY OBSTRUCT NEC 03/24/2011 Ot 518.4 ACUTE LUNG EDEMA NOS 03/24/2011 Ot 518.81 ACUTE RESPIRATORY FAILURE 03/24/2011 Ot 530.81 ESOPHAGEAL REFLUX 03/24/2011 Ot 596.51 HYPERTONICITY OF BLADDER 03/24/2011 Ot 790.29 OTHER ABNORMAL GLUCOSE 03/24/2011 Ot E932.0 ADV EFF CORTICOSTEROIDS 03/24/2011 Ot V46.2 SUPPLEMENTAL OXYGEN 03/25/2011 KRANTHI PRECIADO MD 790.29 PREDIABETES (IMPAIRED GLUCOSE TOLERANCE) 03/25/2011 790.29 PREDIABETES ( IMPAIRED GLUCOSE TOLERANCE) 03/25/2011 790.29 PREDIABETES ( IMPAIRED GLUCOSE TOLERANCE) 03/25/2011 TRACEE LANGE APRN 790.29 PREDIABETES (IMPAIRED GLUCOSE TOLERANCE) 03/25/2011 TRACEE LANGE APRN 790.29 PREDIABETES (IMPAIRED GLUCOSE TOLERANCE) 03/25/2011 790.29 PREDIABETES ( IMPAIRED GLUCOSE TOLERANCE) 03/25/2011 790.29 PREDIABETES ( IMPAIRED GLUCOSE TOLERANCE) 03/25/2011 KRANTHI PRECIADO MD 790.29 PREDIABETES (IMPAIRED GLUCOSE TOLERANCE) 03/25/2011 KRANTHI PRECIADO MD 790.29 PREDIABETES (IMPAIRED GLUCOSE TOLERANCE) 03/25/2011 TRACEE LANGE APRN 790.29 PREDIABETES (IMPAIRED GLUCOSE TOLERANCE) 03/25/2011 TRACEE LANGE APRN 790.29 PREDIABETES (IMPAIRED GLUCOSE TOLERANCE) 03/25/2011 TRACEE LANGE APRN 790.29 PREDIABETES (IMPAIRED GLUCOSE TOLERANCE) 03/25/2011 DEGROOT DO, GAVI K 790.29 PREDIABETES (IMPAIRED GLUCOSE TOLERANCE) 03/25/2011 DEGROOT DO, GAVI K 790.29 PREDIABETES (IMPAIRED GLUCOSE TOLERANCE) 03/25/2011 TRACEE LANGE APRN 790.29 PREDIABETES (IMPAIRED GLUCOSE TOLERANCE) 03/25/2011 TRACEE LANGE APRN 790.29 PREDIABETES (IMPAIRED GLUCOSE TOLERANCE) 03/25/2011 KRANTHI PRECIADO MD 790.29 PREDIABETES (IMPAIRED GLUCOSE TOLERANCE) 04/10/2011 KRANTHI PRECIADO MD 462 Sore Throat 04/10/2011 KRANTHI PRECIADO MD 496 CHRONIC OBSTRUCTIVE PULMONARY DISEASE 04/10/2011 462 Sore Throat 04/10/2011 496 CHRONIC OBSTRUCTIVE PULMONARY DISEASE 04/10/2011 462 Sore Throat 04/10/2011 496 CHRONIC OBSTRUCTIVE PULMONARY DISEASE 04/10/2011 TRACEE LANGE APRN 462 Sore Throat 04/10/2011 TRACEE LANGE APRN 496 CHRONIC OBSTRUCTIVE PULMONARY DISEASE 04/10/2011 TRACEE LANGE APRN 462 Sore Throat 04/10/2011 TRACEE LANGE APRN 496 CHRONIC OBSTRUCTIVE PULMONARY DISEASE 04/10/2011 462 Sore Throat 04/10/2011 496 CHRONIC OBSTRUCTIVE PULMONARY DISEASE 04/10/2011 462 Sore Throat 04/10/2011 496 CHRONIC OBSTRUCTIVE PULMONARY DISEASE 04/10/2011 KRANTHI PRECIADO MD 462 Sore Throat 04/10/2011 KRANTHI PRECIADO MD 496 CHRONIC OBSTRUCTIVE PULMONARY DISEASE 04/10/2011 KRANTHI PRECIADO MD 462 Sore Throat 04/10/2011 KRANTHI PRECIADO MD 496 CHRONIC OBSTRUCTIVE PULMONARY DISEASE 04/10/2011 TRACEE LANGE APRN 462 Sore Throat 04/10/2011 TRACEE LANGE APRN 496 CHRONIC OBSTRUCTIVE PULMONARY DISEASE 04/10/2011 TRACEE LANGE APRN 462 Sore Throat 04/10/2011 TRACEE LANGE APRN T 496 CHRONIC OBSTRUCTIVE PULMONARY DISEASE 04/10/2011 TRACEE LANGE APRN T 462 Sore Throat 04/10/2011 TRACEE LANGE APRN T 496 CHRONIC OBSTRUCTIVE PULMONARY DISEASE 04/10/2011 DEGROOT DO, GAVI K 462 Sore Throat 04/10/2011 DEGROOT DO, GAVI K 496 CHRONIC OBSTRUCTIVE PULMONARY DISEASE 04/10/2011 DEGROOT DO, GAVI K 462 Sore Throat 04/10/2011 DEGROOT DO, GAVI K 496 CHRONIC OBSTRUCTIVE PULMONARY DISEASE 04/10/2011 TRACEE LANGE APRN T 462 Sore Throat 04/10/2011 TRACEE LANGE APRN 496 CHRONIC OBSTRUCTIVE PULMONARY DISEASE 04/10/2011 TRACEE LANGE APRN T 462 Sore Throat 04/10/2011 TRACEE LANGE APRN 496 CHRONIC OBSTRUCTIVE PULMONARY DISEASE 04/10/2011 KRANTHI PRECIADO MD 462 Sore Throat 04/10/2011 KRANTHI PRECIADO MD 496 CHRONIC OBSTRUCTIVE PULMONARY DISEASE 04/12/2011 Ot 787.03 VOMITING ALONE 07/02/2011 Ot 599.0 URIN TRACT INFECTION NOS 07/02/2011 Ot 789.09 ABDOMINAL PAIN, OTHER SPECIFIED SITE 07/17/2011 Ot 345.90 EPILEPSY UNSPEC W/O MENTION INTRACTABLE 07/17/2011 Ot 496 CHR AIRWAY OBSTRUCT NEC 07/17/2011 Ot 530.81 ESOPHAGEAL REFLUX 07/17/2011 Ot 553.20 VENTRAL HERNIA NOS 07/17/2011 Ot 571.8 CHRONIC LIVER DIS NEC 07/17/2011 Ot 577.0 ACUTE PANCREATITIS 07/17/2011 Ot 587 RENAL SCLEROSIS NOS 07/17/2011 Ot 593.9 RENAL URETERAL DIS NOS 07/17/2011 Ot V58.69 OTH MED,LT, CURRENT USE 10/11/2011 Ot 305.73 AMPHETAMINE ABUSE-REMISS 10/11/2011 Ot 345.90 EPILEPSY UNSPEC W/O MENTION INTRACTABLE 10/11/2011 Ot 403.90 HYPTNSV CHR KID DIS, UNSPEC, W CHR KD ST 10/11/2011 Ot 496 CHR AIRWAY OBSTRUCT NEC 10/11/2011 Ot 530.81 ESOPHAGEAL REFLUX 10/11/2011 Ot 585.9 CHRONIC KIDNEY DISEASE, UNSPECIFIED 10/11/2011 Ot 596.51 HYPERTONICITY OF BLADDER 10/11/2011 Ot 786.50 CHEST PAIN NOS 10/11/2011 Ot V17.49 FAMILY HISTORY OF OTHER CARDIOVASCULAR D 10/11/2011 Ot V45.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 10/11/2011 Ot V45.89 POSTSURGICAL STATES NEC 10/11/2011 Ot V58.69 OTH MED,LT, CURRENT USE 10/23/2011 KRANTHI PRECIADO MD 401.9 ESSENTIAL HYPERTENSION 10/23/2011 KRANTHI PRECIADO MD 530.81 ESOPHAGEAL REFLUX 10/23/2011 401.9 ESSENTIAL HYPERTENSION 10/23/2011 530.81 ESOPHAGEAL REFLUX 10/23/2011 401.9 ESSENTIAL HYPERTENSION 10/23/2011 530.81 ESOPHAGEAL REFLUX 10/23/2011 TRACEE LANGE APRN T 401.9 ESSENTIAL HYPERTENSION 10/23/2011 TRACEE LANGE APRN T 530.81 ESOPHAGEAL REFLUX 10/23/2011 TRACEE LANGE APRN T 401.9 ESSENTIAL HYPERTENSION 10/23/2011 TRACEE LANGE APRN 530.81 ESOPHAGEAL REFLUX 10/23/2011 401.9 ESSENTIAL HYPERTENSION 10/23/2011 530.81 ESOPHAGEAL REFLUX 10/23/2011 401.9 ESSENTIAL HYPERTENSION 10/23/2011 530.81 ESOPHAGEAL REFLUX 10/23/2011 KRANTHI PRECIADO MD 401.9 ESSENTIAL HYPERTENSION 10/23/2011 KRANTHI PRECIADO MD 530.81 ESOPHAGEAL REFLUX 10/23/2011 KRANTHI PRECIADO MD 401.9 ESSENTIAL HYPERTENSION 10/23/2011 KRANTHI PRECIADO MD 530.81 ESOPHAGEAL REFLUX 10/23/2011 TRACEE LANGE APRN 401.9 ESSENTIAL HYPERTENSION 10/23/2011 TRACEE LANGE APRN T 530.81 ESOPHAGEAL REFLUX 10/23/2011 TRACEE LANGE APRN T 401.9 ESSENTIAL HYPERTENSION 10/23/2011 TRACEE LANGE APRN T 530.81 ESOPHAGEAL REFLUX 10/23/2011 TRACEE LANGE APRN T 401.9 ESSENTIAL HYPERTENSION 10/23/2011 TRACEE LANGE APRN T 530.81 ESOPHAGEAL REFLUX 10/23/2011 DEGROOT DO, GAVI K 401.9 ESSENTIAL HYPERTENSION 10/23/2011 DEGROOT DO, GAVI K 530.81 ESOPHAGEAL REFLUX 10/23/2011 DEGROOT DO, GAVI K 401.9 ESSENTIAL HYPERTENSION 10/23/2011 DEGROOT DO, GAVI K 530.81 ESOPHAGEAL REFLUX 10/23/2011 TRACEE LANGE APRN T 401.9 ESSENTIAL HYPERTENSION 10/23/2011 TRACEE LANGE APRN T 530.81 ESOPHAGEAL REFLUX 10/23/2011 TRACEE LANGE APRN 401.9 ESSENTIAL HYPERTENSION 10/23/2011 TRACEE LANGE APRN 530.81 ESOPHAGEAL REFLUX 10/23/2011 KRANTHI PRECIADO MD 401.9 ESSENTIAL HYPERTENSION 10/23/2011 KRANTHI PRECIADO MD 530.81 ESOPHAGEAL REFLUX 03/28/2012 Ot 682.2 CELLULITIS OF TRUNK 03/31/2012 KRANTHI PRECIADO MD 682.9 Cellulitis And Abscess Of Unspecified Sites 03/31/2012 KRANTHI PRECIADO MD 780.39 SEIZURES OTHER 03/31/2012 KRANTHI PRECIADO MD 787.01 NAUSEA WITH VOMITING 03/31/2012 682.9 Cellulitis And Abscess Of Unspecified Sites 03/31/2012 780.39 SEIZURES OTHER 03/31/2012 787.01 NAUSEA WITH VOMITING 03/31/2012 682.9 Cellulitis And Abscess Of Unspecified Sites 03/31/2012 780.39 SEIZURES OTHER 03/31/2012 787.01 NAUSEA WITH VOMITING 03/31/2012 TRACEE LANGE APRN 682.9 Cellulitis And Abscess Of Unspecified Sites 03/31/2012 TRACEE LANGE APRN 780.39 SEIZURES OTHER 03/31/2012 TRACEE LANGE APRN 787.01 NAUSEA WITH VOMITING 03/31/2012 TRACEE LANGE APRN 682.9 Cellulitis And Abscess Of Unspecified Sites 03/31/2012 TRACEE LANGE APRN 780.39 SEIZURES OTHER 03/31/2012 TRACEE LANGE APRN 787.01 NAUSEA WITH VOMITING 03/31/2012 682.9 Cellulitis And Abscess Of Unspecified Sites 03/31/2012 780.39 SEIZURES OTHER 03/31/2012 787.01 NAUSEA WITH VOMITING 03/31/2012 682.9 Cellulitis And Abscess Of Unspecified Sites 03/31/2012 780.39 SEIZURES OTHER 03/31/2012 787.01 NAUSEA WITH VOMITING 03/31/2012 KRANTHI PRECIADO MD 682.9 Cellulitis And Abscess Of Unspecified Sites 03/31/2012 KRANTHI PRECIADO MD 780.39 SEIZURES OTHER 03/31/2012 KRANTHI PRECIADO MD 787.01 NAUSEA WITH VOMITING 03/31/2012 KRANTHI PRECIADO MD 682.9 Cellulitis And Abscess Of Unspecified Sites 03/31/2012 KRANTHI PRECIADO MD 780.39 SEIZURES OTHER 03/31/2012 KRANTHI PRECIADO MD 787.01 NAUSEA WITH VOMITING 03/31/2012 TRACEE LANGE APRN 682.9 Cellulitis And Abscess Of Unspecified Sites 03/31/2012 TRACEE LANGE APRN 780.39 SEIZURES OTHER 03/31/2012 TRACEE LANGE APRN 787.01 NAUSEA WITH VOMITING 03/31/2012 TRACEE LANGE APRN 682.9 Cellulitis And Abscess Of Unspecified Sites 03/31/2012 TRACEE LANGE APRN 780.39 SEIZURES OTHER 03/31/2012 TRACEE LANGE APRN 787.01 NAUSEA WITH VOMITING 03/31/2012 TRACEE LANGE APRN 682.9 Cellulitis And Abscess Of Unspecified Sites 03/31/2012 TRACEE LANGE APRN 780.39 SEIZURES OTHER 03/31/2012 TRACEE LANGE APRN 787.01 NAUSEA WITH VOMITING 03/31/2012 DEGROOT DO, GAVI K 682.9 Cellulitis And Abscess Of Unspecified Sites 03/31/2012 DEGROOT DO, GAVI K 780.39 SEIZURES OTHER 03/31/2012 DEGROOT DO, GAVI K 787.01 NAUSEA WITH VOMITING 03/31/2012 DEGROOT DO, GAVI K 682.9 Cellulitis And Abscess Of Unspecified Sites 03/31/2012 DEGROOT DO, GAVI K 780.39 SEIZURES OTHER 03/31/2012 DEGROOT DO, GAVI K 787.01 NAUSEA WITH VOMITING 03/31/2012 TRACEE LANGE APRN 682.9 Cellulitis And Abscess Of Unspecified Sites 03/31/2012 TRACEE LANGE APRN 780.39 SEIZURES OTHER 03/31/2012 TRACEE LANGE APRN 787.01 NAUSEA WITH VOMITING 03/31/2012 TRACEE LANGE APRN 682.9 Cellulitis And Abscess Of Unspecified Sites 03/31/2012 TRACEE LANGE APRN 780.39 SEIZURES OTHER 03/31/2012 TRACEE LANGE APRN 787.01 NAUSEA WITH VOMITING 03/31/2012 KRANTHI PRECIADO MD 682.9 Cellulitis And Abscess Of Unspecified Sites 03/31/2012 KRANTHI PRECIADO MD 780.39 SEIZURES OTHER 03/31/2012 KRANTHI PRECIADO MD 787.01 NAUSEA WITH VOMITING 05/11/2012 Ot 345.90 EPILEPSY UNSPEC W/O MENTION INTRACTABLE 05/11/2012 Ot 401.9 HYPERTENSION NOS 05/11/2012 Ot 491.21 OBSTR CHRONIC BRONCHITIS, W (ACUTE) EXAC 05/11/2012 Ot 530.81 ESOPHAGEAL REFLUX 05/11/2012 Ot 593.9 RENAL URETERAL DIS NOS 05/11/2012 Ot 596.51 HYPERTONICITY OF BLADDER 05/11/2012 Ot 786.52 PAINFUL RESPIRATION 05/11/2012 Ot 787.91 DIARRHEA 05/11/2012 Ot V03.82 PROPHYLACTIC VACC AGAINST STREPTOCOCCUS 05/26/2012 Ot 345.90 EPILEPSY UNSPEC W/O MENTION INTRACTABLE 05/26/2012 Ot 401.9 HYPERTENSION NOS 05/26/2012 Ot 496 CHR AIRWAY OBSTRUCT NEC 05/26/2012 Ot 530.81 ESOPHAGEAL REFLUX 05/26/2012 Ot 593.9 RENAL URETERAL DIS NOS 05/26/2012 Ot 786.05 SHORTNESS OF BREATH 05/26/2012 Ot 786.59 CHEST PAIN NEC 05/26/2012 Ot 907.0 LT EFF INTRACRANIAL INJ 05/26/2012 Ot E929.3 LATE EFF ACCIDENTAL FALL 07/10/2012 KRANTHI PRECIADO MD 368.10 VISUAL DISTURBANCE UNSPECIFIED 07/10/2012 368.10 VISUAL DISTURBANCE UNSPECIFIED 07/10/2012 368.10 VISUAL DISTURBANCE UNSPECIFIED 07/10/2012 TRACEE LANGE APRN 368.10 VISUAL DISTURBANCE UNSPECIFIED 07/10/2012 TRACEE LANGE APRN 368.10 VISUAL DISTURBANCE UNSPECIFIED 07/10/2012 368.10 VISUAL DISTURBANCE UNSPECIFIED 07/10/2012 368.10 VISUAL DISTURBANCE UNSPECIFIED 07/10/2012 KRANTHI PRECIADO MD 368.10 VISUAL DISTURBANCE UNSPECIFIED 07/10/2012 KRANTHI PRECIADO MD 368.10 VISUAL DISTURBANCE UNSPECIFIED 07/10/2012 TRACEE LANGE APRN 368.10 VISUAL DISTURBANCE UNSPECIFIED 07/10/2012 TRACEE LANGE APRN 368.10 VISUAL DISTURBANCE UNSPECIFIED 07/10/2012 TRACEE LANGE APRN 368.10 VISUAL DISTURBANCE UNSPECIFIED 07/10/2012 GAVI DEGROOT DO 368.10 VISUAL DISTURBANCE UNSPECIFIED 07/10/2012 GAVI DEGROOT DO 368.10 VISUAL DISTURBANCE UNSPECIFIED 07/10/2012 TRACEE LANGE APRN 368.10 VISUAL DISTURBANCE UNSPECIFIED 07/10/2012 TRACEE LANGE APRN 368.10 VISUAL DISTURBANCE UNSPECIFIED 07/10/2012 KRANTHI PRECIADO MD 368.10 VISUAL DISTURBANCE UNSPECIFIED 07/24/2012 Ot 276.51 DEHYDRATION 07/24/2012 Ot 345.90 EPILEPSY UNSPEC W/O MENTION INTRACTABLE 07/24/2012 Ot 496 CHR AIRWAY OBSTRUCT NEC 07/24/2012 Ot 530.81 ESOPHAGEAL REFLUX 07/24/2012 Ot 558.9 NONINF GASTROENTERIT NEC 07/29/2012 KRANTHI PRECIADO MD 070.70 HEPATITIS C, UNSPEC 07/29/2012 KRANTHI PRECIADO MD 789.03 ABDOMINAL PAIN RIGHT LOWER QUADRANT 07/29/2012 070.70 HEPATITIS C, UNSPEC 07/29/2012 789.03 ABDOMINAL PAIN RIGHT LOWER QUADRANT 07/29/2012 070.70 HEPATITIS C, UNSPEC 07/29/2012 789.03 ABDOMINAL PAIN RIGHT LOWER QUADRANT 07/29/2012 TRACEE LANGE APRN 070.70 HEPATITIS C, UNSPEC 07/29/2012 TRACEE LANGE APRN 789.03 ABDOMINAL PAIN RIGHT LOWER QUADRANT 07/29/2012 TRACEE LANGE APRN 070.70 HEPATITIS C, UNSPEC 07/29/2012 TRACEE LANGE APRN 789.03 ABDOMINAL PAIN RIGHT LOWER QUADRANT 07/29/2012 070.70 HEPATITIS C, UNSPEC 07/29/2012 789.03 ABDOMINAL PAIN RIGHT LOWER QUADRANT 07/29/2012 070.70 HEPATITIS C, UNSPEC 07/29/2012 789.03 ABDOMINAL PAIN RIGHT LOWER QUADRANT 07/29/2012 KRANTHI PRECIADO MD 070.70 HEPATITIS C, UNSPEC 07/29/2012 KRANTHI PRECIADO MD 789.03 ABDOMINAL PAIN RIGHT LOWER QUADRANT 07/29/2012 KRANTHI PRECIADO MD 070.70 HEPATITIS C, UNSPEC 07/29/2012 KRANTHI PRECIADO MD 789.03 ABDOMINAL PAIN RIGHT LOWER QUADRANT 07/29/2012 TRACEE LANGE APRN 070.70 HEPATITIS C, UNSPEC 07/29/2012 TRACEE LANGE APRN 789.03 ABDOMINAL PAIN RIGHT LOWER QUADRANT 07/29/2012 TRACEE LANGE APRN 070.70 HEPATITIS C, UNSPEC 07/29/2012 TRACEE LANGE APRN 789.03 ABDOMINAL PAIN RIGHT LOWER QUADRANT 07/29/2012 TRACEE LANGE APRN 070.70 HEPATITIS C, UNSPEC 07/29/2012 TRACEE LANGE APRN 789.03 ABDOMINAL PAIN RIGHT LOWER QUADRANT 07/29/2012 GAVI DEGROOT DO 070.70 HEPATITIS C, UNSPEC 07/29/2012 MIKAYLA LANGEGAVI 789.03 ABDOMINAL PAIN RIGHT LOWER QUADRANT 07/29/2012 DEGROOT DO, GAVI K 070.70 HEPATITIS C, UNSPEC 07/29/2012 DEGROOT DO, GAVI K 789.03 ABDOMINAL PAIN RIGHT LOWER QUADRANT 07/29/2012 TRACEE LANGE APRN 070.70 HEPATITIS C, UNSPEC 07/29/2012 TRACEE LANGE APRN 789.03 ABDOMINAL PAIN RIGHT LOWER QUADRANT 07/29/2012 TRACEE LANGE APRN 070.70 HEPATITIS C, UNSPEC 07/29/2012 TRACEE LANGE APRN 789.03 ABDOMINAL PAIN RIGHT LOWER QUADRANT 07/29/2012 KRANTHI PRECIADO MD 070.70 HEPATITIS C, UNSPEC 07/29/2012 KRANTHI PRECIADO MD 789.03 ABDOMINAL PAIN RIGHT LOWER QUADRANT 08/04/2012 Ot 272.4 HYPERLIPIDEMIA NEC/NOS 08/04/2012 Ot 345.90 EPILEPSY UNSPEC W/O MENTION INTRACTABLE 08/04/2012 Ot 401.9 HYPERTENSION NOS 08/04/2012 Ot 414.01 CORONARY ATHEROSCLEROSIS OF [place] CORON 08/04/2012 Ot 496 CHR AIRWAY OBSTRUCT NEC 08/04/2012 Ot 530.81 ESOPHAGEAL REFLUX 08/04/2012 Ot 786.59 CHEST PAIN NEC 09/16/2012 788.30 URINARY INCONTINENCE UNSPECIFIED 09/16/2012 788.30 URINARY INCONTINENCE UNSPECIFIED 09/16/2012 TRACEE LANGE APRN 788.30 URINARY INCONTINENCE UNSPECIFIED 09/16/2012 TRACEE LANGE APRN 788.30 URINARY INCONTINENCE UNSPECIFIED 09/16/2012 788.30 URINARY INCONTINENCE UNSPECIFIED 09/16/2012 788.30 URINARY INCONTINENCE UNSPECIFIED 09/16/2012 KRANTHI PRECIADO MD 788.30 URINARY INCONTINENCE UNSPECIFIED 09/16/2012 KRANTHI PRECIADO MD 788.30 URINARY INCONTINENCE UNSPECIFIED 09/16/2012 TRACEE LANGE APRN 788.30 URINARY INCONTINENCE UNSPECIFIED 09/16/2012 TRACEE LANGE APRN 788.30 URINARY INCONTINENCE UNSPECIFIED 09/16/2012 TRACEE LANGE APRN 788.30 URINARY INCONTINENCE UNSPECIFIED 09/16/2012 DEGROOT DOGAVI 788.30 URINARY INCONTINENCE UNSPECIFIED 09/16/2012 GAVI DEGROOT DO 788.30 URINARY INCONTINENCE UNSPECIFIED 09/16/2012 ANISA MANAGER OF FINANCE, TRACEE T 788.30 URINARY INCONTINENCE UNSPECIFIED 09/16/2012 TRACEE LANGE APRN T 788.30 URINARY INCONTINENCE UNSPECIFIED 09/16/2012 KRANTHI PRECIADO MD 788.30 URINARY INCONTINENCE UNSPECIFIED 10/19/2012 528.9 ORAL MUCOCELE 10/19/2012 TRACEE LANGE APRN T 528.9 ORAL MUCOCELE 10/19/2012 TRACEE LANGE APRN T 528.9 ORAL MUCOCELE 10/19/2012 528.9 ORAL MUCOCELE 10/19/2012 528.9 ORAL MUCOCELE 10/19/2012 KRANTHI PRECIADO MD 528.9 ORAL MUCOCELE 10/19/2012 KRANTHI PRECIADO MD 528.9 ORAL MUCOCELE 10/19/2012 TRACEE LANGE APRN 528.9 ORAL MUCOCELE 10/19/2012 TRACEE LANGE APRN T 528.9 ORAL MUCOCELE 10/19/2012 TRACEE LANGE APRN T 528.9 ORAL MUCOCELE 10/19/2012 DEGROOT DO, GAVI K 528.9 ORAL MUCOCELE 10/19/2012 DEGROOT DO, GAVI K 528.9 ORAL MUCOCELE 10/19/2012 TRACEE LANGE APRN T 528.9 ORAL MUCOCELE 10/19/2012 TRACEE LANGE APRN T 528.9 ORAL MUCOCELE 10/19/2012 KRANTHI PRECIADO MD 528.9 ORAL MUCOCELE 10/28/2012 TRACEE LANGE APRN 278.00 OBESITY 10/28/2012 TRACEE LANGE APRN 278.00 OBESITY 10/28/2012 278.00 OBESITY 10/28/2012 278.00 OBESITY 10/28/2012 KRANTHI PRECIADO MD 278.00 OBESITY 10/28/2012 KRANTHI PRECIADO MD 278.00 OBESITY 10/28/2012 TRACEE LANGE APRN 278.00 OBESITY 10/28/2012 TRACEE LANGE APRN T 278.00 OBESITY 10/28/2012 TRACEE LANGE APRN 278.00 OBESITY 10/28/2012 DEGROOT DO, GAVI K 278.00 OBESITY 10/28/2012 DEGROOT DO, GAVI K 278.00 OBESITY 10/28/2012 TRACEE LANGE APRN T 278.00 OBESITY 10/28/2012 TRACEE LANGE APRN T 278.00 OBESITY 10/28/2012 KRANTHI PRECIADO MD 278.00 OBESITY 12/09/2012 TRACEE LANGE APRN 780.79 fatigue 12/09/2012 780.79 fatigue 12/09/2012 780.79 fatigue 12/09/2012 KRANTHI PRECIADO MD 780.79 fatigue 12/09/2012 KRANTHI PRECIADO MD 780.79 fatigue 12/09/2012 TRACEE LANGE APRN 780.79 fatigue 12/09/2012 TRACEE LANGE APRN 780.79 fatigue 12/09/2012 TRACEE LANGE APRN 780.79 fatigue 12/09/2012 DEGROOT DO, GAVI K 780.79 fatigue 12/09/2012 DEGROOT DO, GAVI K 780.79 fatigue 12/09/2012 TRACEE LANGE APRN 780.79 fatigue 12/09/2012 TRACEE LANGE APRN 780.79 fatigue 12/09/2012 KRANTHI PRECIADO MD 780.79 fatigue 12/20/2012 Ot 272.4 HYPERLIPIDEMIA NEC/NOS 12/20/2012 Ot 276.7 HYPERPOTASSEMIA 12/20/2012 Ot 305.70 AMPHETAMINE ABUSE-UNSPEC 12/20/2012 Ot 345.90 EPILEPSY UNSPEC W/O MENTION INTRACTABLE 12/20/2012 Ot 401.9 HYPERTENSION NOS 12/20/2012 Ot 414.01 CORONARY ATHEROSCLEROSIS OF [place] CORON 12/20/2012 Ot 486 PNEUMONIA, ORGANISM NOS 12/20/2012 Ot 491.21 OBSTR CHRONIC BRONCHITIS, W (ACUTE) EXAC 12/20/2012 Ot 530.81 ESOPHAGEAL REFLUX 12/20/2012 Ot 593.9 RENAL URETERAL DIS NOS 12/20/2012 Ot 724.2 LUMBAGO 12/20/2012 Ot 786.59 CHEST PAIN NEC 12/20/2012 Ot 787.91 DIARRHEA 12/20/2012 Ot 790.29 OTHER ABNORMAL GLUCOSE 12/20/2012 Ot E929.9 LATE EFF ACCIDENT NOS 12/20/2012 Ot E932.0 ADV EFF CORTICOSTEROIDS 12/20/2012 Ot V15.81 HX OF PAST NONCOMPLIANCE 12/21/2012 TRACEE LANGE APRN 276.7 HYPERKALEMIA 12/21/2012 276.7 HYPERKALEMIA 12/21/2012 276.7 HYPERKALEMIA 12/21/2012 KRANTHI PRECIADO MD 276.7 HYPERKALEMIA 12/21/2012 KRANTHI PRECIADO MD 276.7 HYPERKALEMIA 12/21/2012 TRACEE LANGE APRN 276.7 HYPERKALEMIA 12/21/2012 TRACEE LANGE APRN 276.7 HYPERKALEMIA 12/21/2012 TRACEE LANGE APRN 276.7 HYPERKALEMIA 12/21/2012 DEGROOT DO, GAVI K 276.7 HYPERKALEMIA 12/21/2012 DEGROOT DO, GAVI K 276.7 HYPERKALEMIA 12/21/2012 TRACEE LANGE APRN 276.7 HYPERKALEMIA 12/21/2012 TRACEE LANGE APRN 276.7 HYPERKALEMIA 12/21/2012 KRANTHI PRECIADO MD 276.7 HYPERKALEMIA 05/11/2013 NGOC CASTILLO MD Ot 070.54 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 05/11/2013 NGOC CASTILLO MD Ot 305.1 TOBACCO USE DISORDER 05/11/2013 NGOC CASTILLO MD Ot 345.90 EPILEPSY UNSPEC W/O MENTION INTRACTABLE 05/11/2013 NGOC CASTILLO MD Ot 401.9 HYPERTENSION NOS 05/11/2013 NGOC CASTILLO MD Ot 414.01 CORONARY ATHEROSCLEROSIS OF [place] CORON 05/11/2013 NGOC CASTILLO MD Ot 425.4 PRIM CARDIOMYOPATHY NEC 05/11/2013 NGOC CASTILLO MD Ot 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 05/11/2013 NGOC CASTILLO MD Ot 438.89 OTH LATE EFFECT-CEREBROVASCULAR DISEASE 05/11/2013 NGOC CASTILLO MD Ot 496 CHR AIRWAY OBSTRUCT NEC 05/11/2013 NGOC CASTILLO MD Ot 530.81 ESOPHAGEAL REFLUX 05/11/2013 NGOC CASTILLO MD Ot 728.87 MUSCLE WEAKNESS (GENERALIZED) 05/11/2013 NGOC CASTILLO MD Ot 789.01 ABDOMINAL PAIN, RIGHT UPPER QUADRANT 05/11/2013 NGOC CASTILLO MD Ot 790.99 BLOOD EXAM - OTH NONSPECIFIC FINDINGS 05/18/2013 414.8 OTHER SPECIFIED FORMS OF CHRONIC ISCHEMIC HEART DISEASE 05/18/2013 KRANTHI PRECIADO MD 414.8 OTHER SPECIFIED FORMS OF CHRONIC ISCHEMIC HEART DISEASE 05/18/2013 KRANTHI PRECIADO MD 414.8 OTHER SPECIFIED FORMS OF CHRONIC ISCHEMIC HEART DISEASE 05/18/2013 TRACEE LANGE APRN 414.8 OTHER SPECIFIED FORMS OF CHRONIC ISCHEMIC HEART DISEASE 05/18/2013 TRACEE LANGE APRN 414.8 OTHER SPECIFIED FORMS OF CHRONIC ISCHEMIC HEART DISEASE 05/18/2013 TRACEE LANGE APRN 414.8 OTHER SPECIFIED FORMS OF CHRONIC ISCHEMIC HEART DISEASE 05/18/2013 DEGROOT DOGAVI K 414.8 OTHER SPECIFIED FORMS OF CHRONIC ISCHEMIC HEART DISEASE 05/18/2013 DEGROOT DO GAVI K 414.8 OTHER SPECIFIED FORMS OF CHRONIC ISCHEMIC HEART DISEASE 05/18/2013 TRACEE LANGE APRN 414.8 OTHER SPECIFIED FORMS OF CHRONIC ISCHEMIC HEART DISEASE 05/18/2013 TRACEE LANGE APRN 414.8 OTHER SPECIFIED FORMS OF CHRONIC ISCHEMIC HEART DISEASE 05/18/2013 KRANTHI PRECIADO MD 414.8 OTHER SPECIFIED FORMS OF CHRONIC ISCHEMIC HEART DISEASE 05/21/2013 414.00 CAD 05/21/2013 425.4 CARDIOMYOPHATHY 05/21/2013 854.00 INTRACRANIAL INJURY OF OTHER AND UNSPECIFIED NATURE WITHOUT OPEN INTRACRANIAL WOUND WITH STATE OF CONSCIOUSNESS UNSPECIFIED 05/21/2013 KRANTHI PRECIADO MD 414.00 CAD 05/21/2013 KRANTHI PRECIADO MD 425.4 CARDIOMYOPHATHY 05/21/2013 KRANTHI PRECIADO MD 854.00 INTRACRANIAL INJURY OF OTHER AND UNSPECIFIED NATURE WITHOUT OPEN INTRACRANIAL WOUND WITH STATE OF CONSCIOUSNESS UNSPECIFIED 05/21/2013 KRANTHI PRECIADO MD 414.00 CAD 05/21/2013 KRANTHI PRECIADO MD 425.4 CARDIOMYOPHATHY 05/21/2013 KRANTHI PRECIADO MD 854.00 INTRACRANIAL INJURY OF OTHER AND UNSPECIFIED NATURE WITHOUT OPEN INTRACRANIAL WOUND WITH STATE OF CONSCIOUSNESS UNSPECIFIED 05/21/2013 TRACEE LANGE APRN 414.00 CAD 05/21/2013 TRACEE LANGE APRN 425.4 CARDIOMYOPHATHY 05/21/2013 TRACEE LANGE APRN 854.00 INTRACRANIAL INJURY OF OTHER AND UNSPECIFIED NATURE WITHOUT OPEN INTRACRANIAL WOUND WITH STATE OF CONSCIOUSNESS UNSPECIFIED 05/21/2013 TRACEE LANGE APRN 414.00 CAD 05/21/2013 TRACEE LANGE APRN 425.4 CARDIOMYOPHATHY 05/21/2013 TRACEE LANGE APRN 854.00 INTRACRANIAL INJURY OF OTHER AND UNSPECIFIED NATURE WITHOUT OPEN INTRACRANIAL WOUND WITH STATE OF CONSCIOUSNESS UNSPECIFIED 05/21/2013 TRACEE LANGE APRN 414.00 CAD 05/21/2013 TRACEE LANGE APRN 425.4 CARDIOMYOPHATHY 05/21/2013 ANISA MANAGER OF FINANCE, TRACEE T 854.00 INTRACRANIAL INJURY OF OTHER AND UNSPECIFIED NATURE WITHOUT OPEN INTRACRANIAL WOUND WITH STATE OF CONSCIOUSNESS UNSPECIFIED 05/21/2013 DEGROOT DO, GAVI K 414.00 CAD 05/21/2013 DEGROOT DO, GAVI K 425.4 CARDIOMYOPHATHY 05/21/2013 DEGROOT DO, GAVI K 854.00 INTRACRANIAL INJURY OF OTHER AND UNSPECIFIED NATURE WITHOUT OPEN INTRACRANIAL WOUND WITH STATE OF CONSCIOUSNESS UNSPECIFIED 05/21/2013 DEGROOT DO, GAVI K 414.00 CAD 05/21/2013 DEGROOT DO, GAVI K 425.4 CARDIOMYOPHATHY 05/21/2013 DEGROOT DO, GAVI K 854.00 INTRACRANIAL INJURY OF OTHER AND UNSPECIFIED NATURE WITHOUT OPEN INTRACRANIAL WOUND WITH STATE OF CONSCIOUSNESS UNSPECIFIED 05/21/2013 TRACEE LANGE APRN 414.00 CAD 05/21/2013 TRACEE LANGE APRN 425.4 CARDIOMYOPHATHY 05/21/2013 TRACEE LANGE APRN 854.00 INTRACRANIAL INJURY OF OTHER AND UNSPECIFIED NATURE WITHOUT OPEN INTRACRANIAL WOUND WITH STATE OF CONSCIOUSNESS UNSPECIFIED 05/21/2013 TRCAEE LANGE APRN 414.00 CAD 05/21/2013 TRACEE LANGE APRN 425.4 CARDIOMYOPHATHY 05/21/2013 TRACEE LANGE APRN 854.00 INTRACRANIAL INJURY OF OTHER AND UNSPECIFIED NATURE WITHOUT OPEN INTRACRANIAL WOUND WITH STATE OF CONSCIOUSNESS UNSPECIFIED 05/21/2013 KRANTHI PRECIADO MD 414.00 CAD 05/21/2013 KRANTHI PRECIADO MD 425.4 CARDIOMYOPHATHY 05/21/2013 KRANTHI PRECIADO MD 854.00 INTRACRANIAL INJURY OF OTHER AND UNSPECIFIED NATURE WITHOUT OPEN INTRACRANIAL WOUND WITH STATE OF CONSCIOUSNESS UNSPECIFIED 05/30/2013 SANTHOSH LOWE MD Ot 425.4 PRIM CARDIOMYOPATHY NEC 05/30/2013 SANTHOSH LOWE MD Ot 786.50 CHEST PAIN NOS 05/30/2013 SANTHOSH LOWE MD Ot V58.66 LONG-TERM (CURRENT) USE OF ASPIRIN 05/30/2013 SANTHOSH LOWE MD Ot V58.69 OTH MED,LT,CURRENT USE 06/24/2013 AGUSTÍN DEGROOT DOA K Ot 041.04 STREPTOCOCCUS INFECTION NOS, GROUP D (EN 06/24/2013 AGUSTÍN DEGROOT DOA K Ot 041.12 METHICILLIN RESISTANT STAPHYLOCOCCUS AUR 06/24/2013 AGUSTÍN DEGROOT DOA K Ot 041.84 BACTERIAL INFECTION DUE TO OTHER ANAEROB 06/24/2013 MIKAYLA LANGE GAVI K Ot 041.85 BACTERIAL INFEC DUE TO OTH GRAM-NEG ORGA 06/24/2013 GAVI DEGROOT DO Ot 070.54 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 06/24/2013 GAVI DEGROOT DO Ot 276.7 HYPERPOTASSEMIA 06/24/2013 GAVI DEGROOT DO Ot 285.29 ANEMIA OF OTHER CHRONIC DISEASE 06/24/2013 GAVI DEGROOT DO Ot 300.00 ANXIETY STATE NOS 06/24/2013 MIKAYLA LANGE GAVI K Ot 305.70 AMPHETAMINE ABUSE-UNSPEC 06/24/2013 MIKAYLA LANGE GAVI Alec Ot 311 DEPRESSIVE DISORDER NEC 06/24/2013 GAVI DEGROOT DO Ot 345.90 EPILEPSY UNSPEC W/O MENTION INTRACTABLE 06/24/2013 GAVI DEGROOT DO Ot 403.90 HYPTNSV CHR KID DIS, UNSPEC, W CHR KD ST 06/24/2013 GAVI DEGROOT DO Ot 414.01 CORONARY ATHEROSCLEROSIS OF [place] CORON 06/24/2013 GAVI DEGROOT DO Ot 425.4 PRIM CARDIOMYOPATHY NEC 06/24/2013 GAVI DEGROOT DO Ot 438.89 OTH LATE EFFECT-CEREBROVASCULAR DISEASE 06/24/2013 GAVI DEGROOT DO Ot 491.20 OBSTR CHRONIC BRONCHITIS, W/O EXACERBATI 06/24/2013 GAVI DEGROOT DO Ot 530.81 ESOPHAGEAL REFLUX 06/24/2013 GAVI DEGROOT DO Ot 585.9 CHRONIC KIDNEY DISEASE, UNSPECIFIED 06/24/2013 GAVI DEGROOT DO Ot 682.3 CELLULITIS OF ARM 06/24/2013 GAVI DEGROOT DO Ot 682.6 CELLULITIS OF LEG 06/24/2013 GAVI DEGROOT DO Ot 728.87 MUSCLE WEAKNESS (GENERALIZED) 06/24/2013 GAVI DEGROOT DO Ot 785.0 TACHYCARDIA NOS 07/29/2013 BRI VILLASEÑOR Ot 682.6 CELLULITIS OF LEG 09/14/2013 VASILIY GONZALES, ABELARDO Valdovinos Ot 070.70 UNSPECIFIED VIRAL 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 09/14/2013 ABELARDO AMANDA MD Ot 305.20 CANNABIS ABUSE-UNSPEC 09/14/2013 ABELARDO AMANDA MD Ot 305.70 AMPHETAMINE ABUSE-UNSPEC 09/14/2013 ABELARDO AMANDA MD Ot 338.29 OTHER CHRONIC PAIN 09/14/2013 ABELADRO AMANDA MD Ot 403.90 HYPTNSV CHR KID DIS, UNSPEC, W CHR KD ST 09/14/2013 ABELARDO AMANDA MD Ot 414.01 CORONARY ATHEROSCLEROSIS OF [place] CORON 09/14/2013 ABELARDO AMANDA MD Ot 425.4 PRIM CARDIOMYOPATHY NEC 09/14/2013 ABELARDO AMANDA MD Ot 428.0 CONGESTIVE HEART FAILURE NOS 09/14/2013 ABELARDO AMANDA MD Ot 428.22 CHRONIC SYSTOLIC HRT FAILURE 09/14/2013 ABELARDO AMANDA MD Ot 493.20 CHRONIC OBSTRUCTIVE ASTHMA, NOS 09/14/2013 ABELARDO AMANDA MD Ot 530.81 ESOPHAGEAL REFLUX 09/14/2013 ABELARDO AMANDA MD Ot 553.20 VENTRAL HERNIA NOS 09/14/2013 ABELARDO AMANDA MD Ot 585.9 CHRONIC KIDNEY DISEASE, UNSPECIFIED 09/14/2013 ABELARDO AMANDA MD Ot 724.5 BACKACHE NOS 09/14/2013 ABELARDO AMANDA MD Ot 729.5 PAIN IN LIMB 09/14/2013 ABELARDO AMANDA MD Ot 780.39 OTHER CONVULSIONS 09/14/2013 ABELARDO AMANDA MD Ot 780.4 DIZZINESS AND GIDDINESS 09/14/2013 ABELARDO AMANDA MD Ot 786.50 CHEST PAIN NOS 09/14/2013 ABELARDO AMANDA MD Ot 790.99 BLOOD EXAM - OTH NONSPECIFIC FINDINGS 09/14/2013 ABELARDO AMANDA MD Ot V04.81 ND FOR PROPHYLACTIC VACCIN AND INOCULATI 09/14/2013 ABELARDO AMANDA MD Ot V12.54 PERSONAL HX OF TIA, CEREBRAL INFARCTION 09/15/2013 QUIN JONES MD Ot 490 BRONCHITIS NOS 09/15/2013 QUIN JONES MD Ot 786.2 COUGH 09/18/2013 TRACEE LANGE APRN 786.2 COUGH 09/18/2013 TRACEE LANGE APRN 786.2 COUGH 09/18/2013 TRACEE LANGE APRN 786.2 COUGH 09/18/2013 DEGROOT DO, GAVI K 786.2 COUGH 09/18/2013 DEGROOT DO, GAVI K 786.2 COUGH 09/18/2013 TRACEE LANGE APRN 786.2 COUGH 09/18/2013 TRACEE LANGE APRN 786.2 COUGH 09/18/2013 KRANTHI PRECIADO MD 786.2 COUGH 09/29/2013 CHRISSY GONZALES, SANTHOSH Castellano Ot 425.4 PRIM CARDIOMYOPATHY NEC 09/29/2013 SANTHOSH LOWE MD Ot 786.59 CHEST PAIN NEC 09/29/2013 CHRISSY GONZALES, SANTHOSH Castellano Ot 790.92 COAGULATION PROFILE, ABNORMAL 11/14/2013 NEERAJ VILLA APRN Ot 724.2 LUMBAGO 11/14/2013 NEERAJ VILLA APRN Ot 789.00 ABDOMINAL PAIN, UNSPECIFIED SITE 02/04/2014 KAILAMARIN Ennis DOA Alec Ot 300.00 ANXIETY STATE NOS 02/04/2014 MARIN BRIGHT DOA K Ot 491.21 OBSTR CHRONIC BRONCHITIS, W (ACUTE) EXAC 02/04/2014 MARIN BRIGHT DOA K Ot 786.50 CHEST PAIN NOS 02/04/2014 HOLA BRIGHT DO Ot V15.81 HX OF PAST NONCOMPLIANCE 02/07/2014 TRACEE LANGE APRN 786.6 SWELLING MASS OR LUMP IN CHEST 02/07/2014 GAVI DEGROOT DO 786.6 SWELLING MASS OR LUMP IN CHEST 02/07/2014 GAVI DEGROOT DO 786.6 SWELLING MASS OR LUMP IN CHEST 02/07/2014 TRACEE LANGE APRN 786.6 SWELLING MASS OR LUMP IN CHEST 02/07/2014 TRACEE LANGE APRN 786.6 SWELLING MASS OR LUMP IN CHEST 02/07/2014 KRANTHI PRECIADO MD 786.6 SWELLING MASS OR LUMP IN CHEST 03/18/2014 NEERAJ VILLA APRN Ot 491.20 OBSTR CHRONIC BRONCHITIS, W/O EXACERBATI 03/18/2014 NEERAJ VILLA APRN Ot 786.05 SHORTNESS OF BREATH 04/08/2014 AGUSTÍN DEGROOT DOA K Ot 285.29 ANEMIA OF OTHER CHRONIC DISEASE 04/08/2014 AGUSTÍN DEGROOT DOA K Ot 296.80 BIPOLAR DISORDER, UNSPECIFIED 04/08/2014 AGUSTÍN DEGROOT DOA K Ot 300.00 ANXIETY STATE NOS 04/08/2014 AGUSTÍN DEGROOT DOA K Ot 305.70 AMPHETAMINE ABUSE-UNSPEC 04/08/2014 AGUSTÍN DEGROOT DOA K Ot 397.0 TRICUSPID VALVE DISEASE 04/08/2014 MIKAYLA LANGE GAVI K Ot 403.90 HYPTNSV CHR KID DIS, UNSPEC, W CHR KD ST 04/08/2014 DEGROOT DO GAVI K Ot 416.8 CHR PULMON HEART DIS NEC 04/08/2014 MIKAYLA LANGE GAVI K Ot 424.0 MITRAL VALVE DISORDER 04/08/2014 DEGROOT DO GAVI K Ot 425.4 PRIM CARDIOMYOPATHY NEC 04/08/2014 DEGROOT DO GAVI K Ot 428.0 CONGESTIVE HEART FAILURE NOS 04/08/2014 DEGROOT AGUSTÍN LANGEA K Ot 428.23 ACUTE CHRONIC SYSTOLIC HRT FAILURE 04/08/2014 DEGROOT DO GAVI K Ot 466.0 ACUTE BRONCHITIS 04/08/2014 DEGROOT DO GAVI K Ot 493.22 CHRONIC OBSTRUCTIVE ASTHMA, W (ACUTE) EX 04/08/2014 MIKAYLA LANGE GAVI K Ot 518.84 ACUTE AND CHRONIC RESPIRATORY FAILURE 04/08/2014 MIKAYLA LANGE GAVI K Ot 530.81 ESOPHAGEAL REFLUX 04/08/2014 MIKAYLA LANGE GAVI K Ot 585.9 CHRONIC KIDNEY DISEASE, UNSPECIFIED 04/08/2014 MIKAYLA LANGE GAVI K Ot V15.52 PERSONAL HISTORY OF TRAUMATIC BRAIN INJU 04/08/2014 MIKAYLA LANGE GAVI Alec Ot V45.02 AUTO IMPLANTABLE CARDIAC DEFIBRILLATOR I 04/09/2014 NEERAJ VILLA APRN Ot 486 PNEUMONIA, ORGANISM NOS 04/09/2014 NEERAJ VILLA APRN Ot 511.9 PLEURAL EFFUSION NOS 05/25/2014 MATTHEW DAVID MD Ot 250.00 DIAB SHEFALI WO COMPL, TYPE II OR UNSPEC TY 05/25/2014 MATTHEW DAVID MD Ot 276.7 HYPERPOTASSEMIA 05/25/2014 MATTHEW DAVID MD Ot 285.29 ANEMIA OF OTHER CHRONIC DISEASE 05/25/2014 MATTHEW DAVID MD Ot 305.71 AMPHETAMINE ABUSE-CONTIN 05/25/2014 MATTHEW DAVID MD Ot 403.90 HYPTNSV CHR KID DIS, UNSPEC, W CHR KD ST 05/25/2014 MATTHEW DAVID MD Ot 425.4 PRIM CARDIOMYOPATHY NEC 05/25/2014 MATTHEW DAVID MD Ot 428.23 ACUTE CHRONIC SYSTOLIC HRT FAILURE 05/25/2014 MATTHEW DAVID MD Ot 491.21 OBSTR CHRONIC BRONCHITIS, W (ACUTE) EXAC 05/25/2014 JOANN GONZALES, MATTHEW Long[place] Ot 518.84 ACUTE AND CHRONIC RESPIRATORY FAILURE 05/25/2014 MATTHEW DAVID MD Ot 585.9 CHRONIC KIDNEY DISEASE, UNSPECIFIED 05/25/2014 MATTHEW DAVID MD Ot V15.81 HX OF PAST NONCOMPLIANCE 06/05/2014 STAR ORTIZ Ot 723.1 CERVICALGIA 06/05/2014 STAR ORTIZ Ot 724.2 LUMBAGO 06/05/2014 STAR ORTIZ Ot 924.8 MULTIPLE CONTUSIONS NEC 06/05/2014 STAR ORTIZ Ot 959.19 OTH INJURY OF OTHER SITES OF TRUNK 06/05/2014 STAR ORTIZ Ot E000.8 OTHER EXTERNAL CAUSE STATUS 06/05/2014 STAR ORTIZ Ot E849.0 ACCIDENT IN HOME 06/05/2014 STAR ORTIZ Ot E888.9 FALL NOS 06/10/2014 MIKAYLA LANGE GAVI K Ot 038.9 SEPTICEMIA NOS 06/10/2014 MIKAYLA LANGE GAVI K Ot 041.11 METHICILLIN SUSCEPTIBLE STAPHYLOCOCCUS A 06/10/2014 MIKAYLA LANGE GAVI K Ot 276.7 HYPERPOTASSEMIA 06/10/2014 MIKAYLA LANGE GAVI K Ot 285.29 ANEMIA OF OTHER CHRONIC DISEASE 06/10/2014 MIKAYLA LANGE GAVI K Ot 305.71 AMPHETAMINE ABUSE-CONTIN 06/10/2014 MIKAYLA LANGE GAVI K Ot 397.0 TRICUSPID VALVE DISEASE 06/10/2014 MIKAYLA LANGE GVAI K Ot 403.90 HYPTNSV CHR KID DIS, UNSPEC, W CHR KD ST 06/10/2014 MIKAYLA LANGE GAVI K Ot 425.4 PRIM CARDIOMYOPATHY NEC 06/10/2014 MIKAYLA LANGE GAVI K Ot 428.0 CONGESTIVE HEART FAILURE NOS 06/10/2014 MIKAYLA LANGE, GAVI K Ot 496 CHR AIRWAY OBSTRUCT NEC 06/10/2014 MIKAYLA LANGE GAVI K Ot 518.83 CHRONIC RESPIRATORY FAILURE 06/10/2014 MIKAYLA LANGE GAVI K Ot 585.3 CHRONIC KIDNEY DISEASE, STAGE III (MODER 06/10/2014 DEGROOT DO GAVI K Ot 719.45 JOINT PAIN-PELVIS 06/10/2014 MIKAYLA LANGE GAVI K Ot 995.91 SEPSIS 06/10/2014 MIKAYLA LANGE GAVI K Ot V15.81 HX OF PAST NONCOMPLIANCE 08/05/2014 TRACEE LANGE APRN 422.92 SEPTIC MYOCARDITIS 08/05/2014 TRACEE LANGE APRN 422.92 SEPTIC MYOCARDITIS 08/05/2014 KRANTHI PRECIADO MD 422.92 SEPTIC MYOCARDITIS 11/27/2014 STAR ORTIZ Ot 724.2 LUMBAGO 11/28/2014 TRACEE LANGE APRN 724.4 THORACIC OR LUMBOSACRAL NEURITIS OR RADICULITIS UNSPECIFIED 11/28/2014 KRANTHI PRECIADO MD 724.4 THORACIC OR LUMBOSACRAL NEURITIS OR RADICULITIS UNSPECIFIED 12/01/2014 Ot 724.2 LUMBAGO 12/01/2014 Ot 788.1 DYSURIA 01/19/2015 CHRISSY GONZALES, SANTHOSH Castellano Ot 724.2 LUMBAGO 01/19/2015 CHRISSY GONZALES, SANTHOSH Castellano Ot 789.00 ABDOMINAL PAIN, UNSPECIFIED SITE 02/02/2015 STAR ORTIZ Ot 305.90 DRUG ABUSE NEC-UNSPEC 02/02/2015 STAR ORTIZ Ot 599.0 URIN TRACT INFECTION NOS 02/02/2015 STAR ORTIZ Ot 724.2 LUMBAGO 02/02/2015 STAR ORTIZ Ot V58.69 OTH MED,LT,CURRENT USE 01/27/2016 CHRISSY GONZALES, SANTHOSH Castellano Ot M54.5 LOW BACK PAIN 01/27/2016 CHRISSY GONZALES, SANTHOSH Castellano Ot R74.8 ABNORMAL LEVELS OF OTHER SERUM ENZYMES 01/27/2016 Ot 496 CHR AIRWAY OBSTRUCT NEC 01/27/2016 Ot 780.09 OTHER ALTERATION OF CONSCIOUSNESS 01/27/2016 Ot 780.39 OTHER CONVULSIONS 01/27/2016 Ot 786.59 CHEST PAIN NEC 01/27/2016 ABELARDO AMANDA MD Ot 397.0 TRICUSPID VALVE DISEASE 01/27/2016 ABELARDO AMANDA MD Ot 424.0 MITRAL VALVE DISORDER 01/27/2016 ABELARDO AMANDA MD Ot 428.0 CONGESTIVE HEART FAILURE NOS 01/27/2016 ABELARDO AMANDA MD Ot 428.0 CONGESTIVE HEART FAILURE NOS 01/28/2016 KAILA LANGE HOLA Alec Ot E86.0 DEHYDRATION 01/28/2016 KAILA DO, HOLA K Ot I12.9 HYPERTENSIVE CHRONIC KIDNEY DISEASE W ST 01/28/2016 KAILA DO, HOLA K Ot J44.9 CHRONIC OBSTRUCTIVE PULMONARY DISEASE, U 01/28/2016 KAILA DO, HOLA K Ot K52.9 NONINFECTIVE GASTROENTERITIS AND COLITIS 01/28/2016 KAILA DO, HOLA K Ot N18.9 CHRONIC KIDNEY DISEASE, UNSPECIFIED 01/28/2016 KAILA DO, HOLA K Ot N39.0 URINARY TRACT INFECTION, SITE NOT SPECIF 01/29/2016 CHRISSY GONZALES, SANTHOSH Castellano Ot M54.5 LOW BACK PAIN 01/29/2016 CHRISSY GONZALES, SANTHOSH Castellano Ot R74.8 ABNORMAL LEVELS OF OTHER SERUM ENZYMES 01/29/2016 KAILA DO, HOLA K Ot E86.0 DEHYDRATION 01/29/2016 KAILA DO, HOLA K Ot I12.9 HYPERTENSIVE CHRONIC KIDNEY DISEASE W ST 01/29/2016 KAILA DO, HOLA K Ot J44.9 CHRONIC OBSTRUCTIVE PULMONARY DISEASE, U 01/29/2016 KAILA DO, HOLA K Ot K52.9 NONINFECTIVE GASTROENTERITIS AND COLITIS 01/29/2016 KAILA DO, HOLA K Ot N18.9 CHRONIC KIDNEY DISEASE, UNSPECIFIED 01/29/2016 KAILA DO, HOLA K Ot N39.0 URINARY TRACT INFECTION, SITE NOT SPECIF 02/13/2016 KAILA DO, HOLA K Ot E86.0 DEHYDRATION 02/13/2016 KAILA DO, HOLA K Ot I12.9 HYPERTENSIVE CHRONIC KIDNEY DISEASE W ST 02/13/2016 KAILA DO, HOLA K Ot J44.9 CHRONIC OBSTRUCTIVE PULMONARY DISEASE, U 02/13/2016 KAILA DO, HOLA K Ot K52.9 NONINFECTIVE GASTROENTERITIS AND COLITIS 02/13/2016 KAILA DO, HOLA K Ot N18.9 CHRONIC KIDNEY DISEASE, UNSPECIFIED 02/13/2016 KAILA DO, HOLA K Ot N39.0 URINARY TRACT INFECTION, SITE NOT SPECIF 08/05/2016 ABELARDO AMANDA MD Ot 397.0 TRICUSPID VALVE DISEASE 08/05/2016 ABELARDO AMANDA MD Ot 424.0 MITRAL VALVE DISORDER 08/05/2016 ABELARDO AMANDA MD Ot 428.0 CONGESTIVE HEART FAILURE NOS 08/05/2016 VASILIY MD, BASHAR J Ot 428.0 CONGESTIVE HEART FAILURE NOS 08/05/2016 KAILA LANGE HOLA K Ot I10 ESSENTIAL (PRIMARY) HYPERTENSION 08/05/2016 MARIN BRIGHT DOA K Ot J44.9 CHRONIC OBSTRUCTIVE PULMONARY DISEASE, U 08/05/2016 MARIN BRIGHT DOA K Ot L03.115 CELLULITIS OF RIGHT LOWER LIMB 08/05/2016 MARIN BRIGHT DOA K Ot N39.0 URINARY TRACT INFECTION, SITE NOT SPECIF 08/05/2016 MARIN BRIGHT DOA K Ot R30.0 DYSURIA 08/05/2016 MARIN BRIGHT DOA K Ot Z23 ENCOUNTER FOR IMMUNIZATION 08/05/2016 MARIN BRIGHT DOA K Ot Z79.899 OTHER RETIREMENT (CURRENT) DRUG THERAPY 08/05/2016 KAILA LANGE HOLA K Ot Z87.891 PERSONAL HISTORY OF NICOTINE DEPENDENCE 11/23/2016 ABELARDO AMANDA MD J Ot 397.0 TRICUSPID VALVE DISEASE 11/23/2016 ABELARDO AMANDA MD J Ot 424.0 MITRAL VALVE DISORDER 11/23/2016 ABELARDO AMANDA MD J Ot 428.0 CONGESTIVE HEART FAILURE NOS 11/23/2016 ABELARDO AMANDA MD J Ot 428.0 CONGESTIVE HEART FAILURE NOS 11/23/2016 ABELARDO AMANDA MD J Ot 397.0 TRICUSPID VALVE DISEASE 11/23/2016 ABELARDO AMANDA MD J Ot 424.0 MITRAL VALVE DISORDER 11/23/2016 ABELARDO AMANDA MD J Ot 428.0 CONGESTIVE HEART FAILURE NOS 11/23/2016 ABELARDO AMANDA MD J Ot 428.0 CONGESTIVE HEART FAILURE NOS 11/23/2016 QUIN JONES MD Ot I25.10 ATHSCL HEART DISEASE OF [place] CORONARY 11/23/2016 QUIN JONES MD Ot J44.9 CHRONIC OBSTRUCTIVE PULMONARY DISEASE, U 11/23/2016 QUIN JONES MD Ot R05 COUGH 11/23/2016 QUIN JONES MD Ot Z79.899 OTHER RETIREMENT (CURRENT) DRUG THERAPY 11/26/2016 QUIN JONES MD Ot I25.10 ATHSCL HEART DISEASE OF [place] CORONARY 11/26/2016 QUIN JONES MD Ot J44.9 CHRONIC OBSTRUCTIVE PULMONARY DISEASE, U 11/26/2016 QUIN JONES MD Ot R05 COUGH 11/26/2016 QUIN JONES MD Ot Z79.899 OTHER RETIREMENT (CURRENT) DRUG THERAPY 12/26/2016 KAILA DO, HOLA K Ot I10 ESSENTIAL (PRIMARY) HYPERTENSION 12/26/2016 KAILA DO HOLA K Ot J44.9 CHRONIC OBSTRUCTIVE PULMONARY DISEASE, U 12/26/2016 KAILA , HOLA K Ot L03.115 CELLULITIS OF RIGHT LOWER LIMB 12/26/2016 KAILA MARIN LANGEA K Ot N39.0 URINARY TRACT INFECTION, SITE NOT SPECIF 12/26/2016 KAILA MAIRN LANGEA K Ot R30.0 DYSURIA 12/26/2016 KAILA HOLA K Ot Z23 ENCOUNTER FOR IMMUNIZATION 12/26/2016 KAILA HOLA K Ot Z79.899 OTHER HEAT TREATER APPRENTICE (CURRENT) DRUG THERAPY 12/26/2016 KAILA HOLA K Ot Z87.891 PERSONAL HISTORY OF NICOTINE DEPENDENCE 01/01/2017 ABELARDO AMANDA MD Ot 397.0 TRICUSPID VALVE DISEASE 01/01/2017 ABELARDO AMANDA MD Ot 424.0 MITRAL VALVE DISORDER 01/01/2017 ABELARDO AMANDA MD Ot 428.0 CONGESTIVE HEART FAILURE NOS 01/01/2017 ABELARDO AMANDA MD Ot 428.0 CONGESTIVE HEART FAILURE NOS 03/06/2017 QUIN JNOES MD Ot I16.0 HYPERTENSIVE URGENCY 03/06/2017 QUIN JONES MD Ot I25.10 ATHSCL HEART DISEASE OF [place] CORONARY 03/06/2017 QUIN JONES MD Ot J44.9 CHRONIC OBSTRUCTIVE PULMONARY DISEASE, U 03/06/2017 QUIN JONES MD Ot K59.00 CONSTIPATION, UNSPECIFIED 03/06/2017 QUIN JONES MD Ot R10.30 LOWER ABDOMINAL PAIN, UNSPECIFIED 03/06/2017 QUIN JONES MD Ot Z79.899 OTHER HEAT TREATER APPRENTICE (CURRENT) DRUG THERAPY 03/06/2017 ABELARDO AMANDA MD Ot 397.0 TRICUSPID VALVE DISEASE 03/06/2017 ABELARDO AMANDA MD Ot 424.0 MITRAL VALVE DISORDER 03/06/2017 ABELARDO AMANDA MD Ot 428.0 CONGESTIVE HEART FAILURE NOS 03/06/2017 ABELARDO AMANDA MD Ot 428.0 CONGESTIVE HEART FAILURE NOS 03/07/2017 QUIN JONES MD Ot I16.0 HYPERTENSIVE URGENCY 03/07/2017 QUIN JONES MD, Ot I25.10 ATHSCL HEART DISEASE OF [place] CORONARY 03/07/2017 QUIN JONES MD Ot J44.9 CHRONIC OBSTRUCTIVE PULMONARY DISEASE, U 03/07/2017 QUIN JONES MD Ot K59.00 CONSTIPATION, UNSPECIFIED 03/07/2017 QUIN JONES MD Ot R10.30 LOWER ABDOMINAL PAIN, UNSPECIFIED 03/07/2017 QUIN JONES MD, Ot Z79.899 OTHER RETIREMENT (CURRENT) DRUG THERAPY 06/18/2017 ABELARDO AMANDA MD Ot 397.0 TRICUSPID VALVE DISEASE 06/18/2017 ABELARDO AMANDA MD Ot 424.0 MITRAL VALVE DISORDER 06/18/2017 ABELARDO AMANDA MD Ot 428.0 CONGESTIVE HEART FAILURE NOS 06/18/2017 ABELARDO AMANDA MD Ot 428.0 CONGESTIVE HEART FAILURE NOS 06/18/2017 STAR ORTIZ Ot D64.9 ANEMIA, UNSPECIFIED 06/18/2017 STAR ORTIZ Ot F31.9 BIPOLAR DISORDER, UNSPECIFIED 06/18/2017 STAR ORTIZ Ot F41.9 ANXIETY DISORDER, UNSPECIFIED 06/18/2017 STAR ORTIZ Ot G40.909 EPILEPSY, UNSP, NOT INTRACTABLE, WITHOUT 06/18/2017 STAR ORTIZ Ot I10 ESSENTIAL (PRIMARY) HYPERTENSION 06/18/2017 STAR ORTIZ Ot I25.10 ATHSCL HEART DISEASE OF [place] CORONARY 06/18/2017 STAR ORTIZ Ot I25.2 OLD MYOCARDIAL INFARCTION 06/18/2017 STAR ORTIZ Ot I42.9 CARDIOMYOPATHY, UNSPECIFIED 06/18/2017 STAR ORTIZ Ot I73.9 PERIPHERAL VASCULAR DISEASE, UNSPECIFIED 06/18/2017 STAR ORTIZ Ot J43.9 EMPHYSEMA, UNSPECIFIED 06/18/2017 STAR ORTIZ Ot K21.9 GASTRO-ESOPHAGEAL REFLUX DISEASE WITHOUT 06/18/2017 STAR ORTIZ Ot L03.116 CELLULITIS OF LEFT LOWER LIMB 06/18/2017 STAR ORTIZ Ot M19.90 UNSPECIFIED OSTEOARTHRITIS, UNSPECIFIED 06/18/2017 STAR ORTIZ Ot M79.672 PAIN IN LEFT FOOT 06/18/2017 STAR ORTIZ Ot Z82.49 FAMILY HX OF ISCHEM HEART DIS AND OTH DI 06/18/2017 STAR ORTIZ Ot Z85.41 PERSONAL HISTORY OF MALIGNANT NEOPLASM O 06/18/2017 STAR ORTIZ Ot Z87.09 PERSONAL HISTORY OF OTHER DISEASES OF TH 06/18/2017 STAR ORTIZ Ot Z87.19 PERSONAL HISTORY OF OTHER DISEASES OF TH 06/18/2017 STAR ORTIZ Ot Z87.442 PERSONAL HISTORY OF URINARY CALCULI 06/18/2017 STAR ORTIZ Ot Z87.448 PERSONAL HISTORY OF OTHER DISEASES OF UR 06/18/2017 STAR ORTIZ Ot Z87.59 PERSONAL HISTORY OF COMP OF PREG, CHLDBR 06/18/2017 STAR ORTIZ Ot Z87.820 PERSONAL HISTORY OF TRAUMATIC BRAIN INJU 06/18/2017 STAR ORTIZ Ot Z90.710 ACQUIRED ABSENCE OF BOTH CERVIX AND UTER 06/24/2017 ABELARDO AMANDA MD Ot 397.0 TRICUSPID VALVE DISEASE 06/24/2017 ABELARDO AMANDA MD Ot 424.0 MITRAL VALVE DISORDER 06/24/2017 ABELARDO AMANDA MD Ot 428.0 CONGESTIVE HEART FAILURE NOS 06/24/2017 ABELARDO AMANDA MD Ot 428.0 CONGESTIVE HEART FAILURE NOS 07/23/2017 ABELARDO AMANDA MD Ot 397.0 TRICUSPID VALVE DISEASE 07/23/2017 ABELARDO AMANDA MD J Ot 424.0 MITRAL VALVE DISORDER 07/23/2017 ABELARDO AMANDA MD Ot 428.0 CONGESTIVE HEART FAILURE NOS 07/23/2017 ABELARDO AMANDA MD Ot 428.0 CONGESTIVE HEART FAILURE NOS 02/03/2018 ABELARDO AMANDA MD Ot 397.0 TRICUSPID VALVE DISEASE 02/03/2018 ABELARDO AMANDA MD Ot 424.0 MITRAL VALVE DISORDER 02/03/2018 ABELARDO AMANDA MD J Ot 428.0 CONGESTIVE HEART FAILURE NOS 02/03/2018 ABELARDO AMANDA MD Ot 428.0 CONGESTIVE HEART FAILURE NOS 02/04/2018 MICHAEL BURRELL MD Ot B19.20 UNSPECIFIED VIRAL 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 02/04/2018 MICHAEL BURRELL MD Ot F31.9 BIPOLAR DISORDER, UNSPECIFIED 02/04/2018 MICHAEL BURRELL MD Ot F41.9 ANXIETY DISORDER, UNSPECIFIED 02/04/2018 MICHAEL BURRELL MD Ot G40.909 EPILEPSY, UNSP, NOT INTRACTABLE, WITHOUT 02/04/2018 MICHALE BURRELL MD Ot I10 ESSENTIAL (PRIMARY) HYPERTENSION 02/04/2018 MICHAEL BURRELL MD Ot I25.10 ATHSCL HEART DISEASE OF [place] CORONARY 02/04/2018 MICHAEL BURRELL MD Ot I25.2 OLD MYOCARDIAL INFARCTION 02/04/2018 MICHAEL BURRELL MD Ot I73.9 PERIPHERAL VASCULAR DISEASE, UNSPECIFIED 02/04/2018 MICHAEL BURRELL MD Ot J43.9 EMPHYSEMA, UNSPECIFIED 02/04/2018 MICHAEL BURRELL MD Ot K21.9 GASTRO-ESOPHAGEAL REFLUX DISEASE WITHOUT 02/04/2018 MICHAEL BURRELL MD Ot R07.89 OTHER CHEST PAIN 02/04/2018 MICHAEL BURRELL MD Ot R07.9 CHEST PAIN, UNSPECIFIED 02/04/2018 MICHAEL BURRELL MD Ot R56.9 UNSPECIFIED CONVULSIONS 02/04/2018 MICHAEL BURRELL MD Ot Z79.51 HEAT TREATER APPRENTICE (CURRENT) USE OF INHALED STERO 02/04/2018 MICHAEL BURRELL MD Ot Z79.52 RETIREMENT (CURRENT) USE OF SYSTEMIC STER 02/04/2018 MICHAEL BURRELL MD Ot Z82.49 FAMILY HX OF ISCHEM HEART DIS AND OTH DI 02/04/2018 MICHAEL BURRELL MD Ot Z85.41 PERSONAL HISTORY OF MALIGNANT NEOPLASM O 02/04/2018 MICHAEL BURRELL MD Ot Z87.01 PERSONAL HISTORY OF PNEUMONIA (RECURRENT 02/04/2018 MICHAEL BURRELL MD Ot Z87.19 PERSONAL HISTORY OF OTHER DISEASES OF TH 02/04/2018 MICHAEL BURRELL MD Ot Z87.440 PERSONAL HISTORY OF URINARY (TRACT) INFE 02/04/2018 MICHAEL BURRELL MD Ot Z87.448 PERSONAL HISTORY OF OTHER DISEASES OF UR 02/04/2018 MICHAEL BURRELL MD Ot Z87.59 PERSONAL HISTORY OF COMP OF PREG, CHLDBR 02/04/2018 MICHAEL BURRELL MD Ot Z87.820 PERSONAL HISTORY OF TRAUMATIC BRAIN INJU 02/04/2018 MICHAEL BURRELL MD Ot Z88.8 ALLERGY STATUS TO OTH DRUG/MEDS/BIOL SUB 02/04/2018 MICHAEL BURRELL MD Ot Z90.49 ACQUIRED ABSENCE OF OTHER SPECIFIED PART 02/04/2018 MICHAEL BURRELL MD Ot Z90.710 ACQUIRED ABSENCE OF BOTH CERVIX AND UTER 02/04/2018 MICHAEL BURRELL MD Ot Z90.89 ACQUIRED ABSENCE OF OTHER ORGANS 02/05/2018 MICHAEL BURRELL MD Ot B19.20 UNSPECIFIED VIRAL 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 02/05/2018 MICHAEL BURRELL MD Ot F31.9 BIPOLAR DISORDER, UNSPECIFIED 02/05/2018 MICHAEL BURRELL MD Ot F41.9 ANXIETY DISORDER, UNSPECIFIED 02/05/2018 MICHAEL BURRELL MD Ot G40.909 EPILEPSY, UNSP, NOT INTRACTABLE, WITHOUT 02/05/2018 MICHAEL BURRELL MD Ot I10 ESSENTIAL (PRIMARY) HYPERTENSION 02/05/2018 MICHAEL BURRELL MD Ot I25.10 ATHSCL HEART DISEASE OF [place] CORONARY 02/05/2018 MICHAEL BRURELL MD Ot I25.2 OLD MYOCARDIAL INFARCTION 02/05/2018 MICHAEL BURRELL MD Ot I73.9 PERIPHERAL VASCULAR DISEASE, UNSPECIFIED 02/05/2018 MICHAEL BURRELL MD Ot J43.9 EMPHYSEMA, UNSPECIFIED 02/05/2018 MICHAEL BURRELL MD Ot K21.9 GASTRO-ESOPHAGEAL REFLUX DISEASE WITHOUT 02/05/2018 MICHAEL BURRELL MD Ot R07.89 OTHER CHEST PAIN 02/05/2018 MICHAEL BURRELL MD Ot R07.9 CHEST PAIN, UNSPECIFIED 02/05/2018 MICHAEL BURRELL MD Ot R56.9 UNSPECIFIED CONVULSIONS 02/05/2018 MICHAEL BURRELL MD Ot Z79.51 RETIREMENT (CURRENT) USE OF INHALED STERO 02/05/2018 MICHAEL BURRELL MD Ot Z79.52 HEAT TREATER APPRENTICE (CURRENT) USE OF SYSTEMIC STER 02/05/2018 MICHAEL BURRELL MD Ot Z82.49 FAMILY HX OF ISCHEM HEART DIS AND OTH DI 02/05/2018 MICHAEL BURRELL MD Ot Z85.41 PERSONAL HISTORY OF MALIGNANT NEOPLASM O 02/05/2018 MICHAEL BURRELL MD Ot Z87.01 PERSONAL HISTORY OF PNEUMONIA (RECURRENT 02/05/2018 MICHAEL BURRELL MD Ot Z87.19 PERSONAL HISTORY OF OTHER DISEASES OF TH 02/05/2018 MICHAEL BURRELL MD Ot Z87.440 PERSONAL HISTORY OF URINARY (TRACT) INFE 02/05/2018 MICHAEL BURRELL MD Ot Z87.448 PERSONAL HISTORY OF OTHER DISEASES OF UR 02/05/2018 MICHAEL BURRELL MD Ot Z87.59 PERSONAL HISTORY OF COMP OF PREG, CHLDBR 02/05/2018 MICHAEL BURRELL MD Ot Z87.820 PERSONAL HISTORY OF TRAUMATIC BRAIN INJU 02/05/2018 MICHAEL BURRELL MD Ot Z88.8 ALLERGY STATUS TO OT DRUG/MEDS/BIOL SUB 02/05/2018 MICHAEL BURRELL MD Ot Z90.49 ACQUIRED ABSENCE OF OTHER SPECIFIED PART 02/05/2018 MICHAEL BURRELL MD Ot Z90.710 ACQUIRED ABSENCE OF BOTH CERVIX AND UTER 02/05/2018 MICHAEL BURRELL MD Ot Z90.89 ACQUIRED ABSENCE OF OTHER ORGANS Procedures Code Description Performed By Performed On 38.93 VENOUS CATHETERIZATION NEC 02/05/2010 53.69 OTH OPEN REP OTH HERNIA OF ANTER ABD W 02/05/2010 U[facility] [place] 09/16/2012 General S Logan Kwan 10/28/2012 29072 ROUTINE VENIPUNCTURE 12/09/2012 96177 CMP 12/09/2012 98618 PHENOBARBITAL 12/09/2012 49763 TSH 12/09/2012 90171 CBC 12/09/2012 PODIATRY CURT [place] 03/02/2013 37.22 LEFT HEART CARDIAC CATH 05/10/2013 88.53 LT HEART ANGIOCARDIOGRAM 05/10/2013 88.56 CORONAR ARTERIOGR-2 CATH 05/10/2013 37502 ECHO 2D 05/21/2013 86.04 OTHER SKIN SUBQ I D 06/20/2013 Physical Wound Care, [facility] 06/29/[address] ABDOMEN & PELVIS W/ & W/ O CONTRAST 12/10/2013 05752 OXIMETRY 12/10/2013 18005 ROUTINE VENIPUNCTURE 08/05/2014 58079 CBC 08/05/2014 [id number] GFR CALC (RESULT ONLY) 08/05/2014 61236 CMP 08/05/2014 83751 OXIMETRY 11/28/2014 J1885 TORADOL PER 15 MG, INJ KETOROLAC TROMETHAMINE 11/28/2014 45181 EAR LAVAGE 02/02/2015 Results Test Result Range Urine drug screening test - 08/05/16 21:25 Urine phencyclidine detection by screening method NEGATIVE NEGATIVE Urine benzodiazepines detection by screening method NEGATIVE NEGATIVE Urine cocaine detection NEGATIVE NEGATIVE Urine amphetamines detection by screening method POSITIVE NEGATIVE Urine methamphetamine detection by screening method NEGATIVE NEGATIVE Urine cannabinoids detection by screening method NEGATIVE NEGATIVE Urine opiates detection by screening method NEGATIVE NEGATIVE Urine barbiturates detection POSITIVE NEGATIVE Screening urine tricyclic antidepressants detection NEGATIVE NEGATIVE Urine methadone detection by screening method NEGATIVE NEGATIVE Urine oxycodone detection NEGATIVE NEGATIVE Urine propoxyphene detection NEGATIVE NEGATIVE Urine buprenophrine screen NEGATIVE NEGATIVE Complete urinalysis with reflex to culture - 08/05/16 21:25 Urine color determination YELLOW NRG Urine clarity determination CLEAR NRG Urine pH measurement by test strip 6.5 5-9 Specific gravity of urine by test strip 1.010 1.016- 1.022 Urine protein assay by test strip, semi-quantitative 1+ NEGATIVE Urine glucose detection by automated test strip 1+ NEGATIVE Erythrocytes detection in urine sediment by light microscopy NEGATIVE NEGATIVE Urine ketones detection by automated test strip NEGATIVE NEGATIVE Urine nitrite detection by test strip NEGATIVE NEGATIVE Urine total bilirubin detection by test strip NEGATIVE NEGATIVE Urine urobilinogen measurement by automated test strip (mass/volume) NORMAL NORMAL Urine leukocyte esterase detection by dipstick 1+ NEGATIVE Automated urine sediment erythrocyte count by microscopy (number/high power field) NONE NRG Automated urine sediment leukocyte count by microscopy (number/high power field ) [HPF] NRG Bacteria detection in urine sediment by light microscopy FEW NRG Squamous epithelial cells detection in urine sediment by light microscopy 2-5 NRG Crystals detection in urine sediment by light microscopy NONE NRG Casts detection in urine sediment by light microscopy NONE NRG Mucus detection in urine sediment by light microscopy NEGATIVE NRG Complete urinalysis with reflex to culture YES NRG Bacterial urine culture - 08/05/16 21:25 Bacterial urine culture [id number] NRG COLONY COUNT >100,000/ML NRG FTX;REPORTABLE SENSITIVITY REPORTED 08/07/16 8:10 [facility] Bacterial susceptibility panel - 08/05/16 21:25 Gentamicin susceptibility test by minimum inhibitory concentration < = NRG Trimethoprim/sulfamethoxazole susceptibility test by minimum inhibitoryconcentration <= NRG Ampicillin susceptibility test by minimum inhibitory concentration < = NRG Tobramycin susceptibility test by minimum inhibitory concentration < = NRG Cefazolin susceptibility test by minimum inhibitory concentration < = NRG Ceftriaxone susceptibility test by minimum inhibitory concentration <= NRG Ampicillin/sulbactam susceptibility test by minimum inhibitory concentration <= NRG Piperacillin/tazobactam susceptibility test by minimum inhibitory concentration <= NRG Ciprofloxacin susceptibility test by minimum inhibitory concentration <= NRG Meropenem susceptibility test by minimum inhibitory concentration < = NRG Nitrofurantoin susceptibility test by minimum inhibitory concentration <= NRG Aztreonam susceptibility test by minimum inhibitory concentration < = NRG Extended spectrum beta lactamase (ESBL) producing bacteria susceptibility test by minimum inhibitory concentration - [facility] BUN - 09/17/16 09:45 BUN 24 mg/dL 6-24 Creatinine, Serum - 09/17/16 09:45 Creatinine, Serum 1.38 mg/dL 0.57-1.00 eGFR If NonAfricn Am 43 mL/min/1.73 >59 eGFR If Africn Am 50 mL/min/1.73 >59 Influenza virus A and B antigen detection - 11/23/16 14:40 FLU RESULT NEGATIVE FOR INFLUENZA A AND B ANTIGENS BY [facility] Complete blood count (CBC) with automated white blood cell (WBC) differential - 03/06/17 09:53 Blood leukocytes automated count (number/volume) 8.6 10*3/uL 4.3-11.0 Blood erythrocytes automated count (number/volume) 5.00 10*6/uL 4.35-5.85 Venous blood hemoglobin measurement (mass/volume) 14.6 g/dL 11.5-16.0 Blood hematocrit (volume fraction) 45 % 35-52 Automated erythrocyte mean corpuscular volume 90 [foz_us] 80-99 Automated erythrocyte mean corpuscular hemoglobin (mass per erythrocyte) 29 pg 25-34 Automated erythrocyte mean corpuscular hemoglobin concentration measurement ( mass/volume) 33 g/dL 32-36 Automated erythrocyte distribution width ratio 13.2 % 10.0-14.5 Automated blood platelet count (count/volume) 308 10*3/uL 130-400 Automated blood platelet mean volume measurement 9.9 [foz_us] 7.4-10.4 Automated blood neutrophils/100 leukocytes 54 % 42-75 Automated blood lymphocytes/100 leukocytes 35 % 12-44 Blood monocytes/100 leukocytes 7 % 0-12 Automated blood eosinophils/100 leukocytes 4 % 0-10 Automated blood basophils/100 leukocytes 0 % 0-10 Blood neutrophils automated count (number/volume) 4.6 10*3 1.8-7.8 Blood lymphocytes automated count (number/volume) 3.0 10*3 1.0-4.0 Blood monocytes automated count (number/volume) 0.6 10*3 0.0-1.0 Automated eosinophil count 0.3 10*3/uL 0.0-0.3 Automated blood basophil count (count/volume) 0.0 10*3/uL 0.0-0.1 Comprehensive metabolic panel - 03/06/17 09:53 Serum or plasma sodium measurement (moles/volume) 141 mmol/L 135-145 Serum or plasma potassium measurement (moles/volume) 4.4 mmol/L 3.6-5.0 Serum or plasma chloride measurement (moles/volume) 104 mmol/L 98-107 Carbon dioxide 25 mmol/L 21-32 Serum or plasma anion gap determination (moles/volume) 12 mmol/L 5-14 Serum or plasma urea nitrogen measurement (mass/volume) 33 mg/dL 7-18 Serum or plasma creatinine measurement (mass/volume) 1.51 mg/dL 0.60-1.30 Serum or plasma urea nitrogen/creatinine mass ratio 22 NRG Serum or plasma creatinine measurement with calculation of estimated glomerular filtration rate 36 NRG Serum or plasma glucose measurement (mass/volume) 98 mg/dL 70-105 Serum or plasma calcium measurement (mass/volume) 9.4 mg/dL 8.5-10.1 Serum or plasma total bilirubin measurement (mass/volume) 0.4 mg/dL 0.1-1.0 Serum or plasma alkaline phosphatase measurement (enzymatic activity/volume) 64 U/L 40-136 Serum or plasma aspartate aminotransferase measurement (enzymatic activity/ volume) 18 U/L 5-34 Serum or plasma alanine aminotransferase measurement (enzymatic activity/volume ) 26 U/L 0-55 Serum or plasma protein measurement (mass/volume) 7.9 g/dL 6.4-8.2 Serum or plasma albumin measurement (mass/volume) 4.2 g/dL 3.2-4.5 Lipase - 03/06/17 09:53 Lipase 60 U/L 8-78 Complete urinalysis with reflex to culture - 03/06/17 10:27 Urine color determination YELLOW NRG Urine clarity determination CLEAR NRG Urine pH measurement by test strip 6 5-9 Specific gravity of urine by test strip 1.015 1.016- 1.022 Urine protein assay by test strip, semi-quantitative NEGATIVE NEGATIVE Urine glucose detection by automated test strip NEGATIVE NEGATIVE Erythrocytes detection in urine sediment by light microscopy NEGATIVE NEGATIVE Urine ketones detection by automated test strip NEGATIVE NEGATIVE Urine nitrite detection by test strip NEGATIVE NEGATIVE Urine total bilirubin detection by test strip NEGATIVE NEGATIVE Urine urobilinogen measurement by automated test strip (mass/volume) NORMAL NORMAL Urine leukocyte esterase detection by dipstick NEGATIVE NEGATIVE Automated urine sediment erythrocyte count by microscopy (number/high power field) NONE NRG Automated urine sediment leukocyte count by microscopy (number/high power field ) NONE NRG Bacteria detection in urine sediment by light microscopy NEGATIVE NRG Crystals detection in urine sediment by light microscopy NONE NRG Casts detection in urine sediment by light microscopy NONE NRG Mucus detection in urine sediment by light microscopy NEGATIVE NRG Complete urinalysis with reflex to culture NO NRG CBC With Differential/Platelet - 04/28/17 10:56 WBC 9.9 x10E3/uL 3.4-10.8 RBC 4.90 x10E6/uL 3.77-5.28 Hemoglobin 14.3 g/dL 11.1-15.9 Hematocrit 43.4 % 34.0-46.6 MCV 89 fL 79-97 MCH 29.2 pg 26.6-33.0 MCHC 32.9 g/dL 31.5-35.7 RDW 15.4 % 12.3-15.4 Platelets 381 x10E3/uL 150-379 Neutrophils 49 % Lymphs 42 % Monocytes 6 % Eos 2 % Basos 1 % Neutrophils (Absolute) 4.8 x10E3/uL 1.4-7.0 Lymphs (Absolute) 4.2 x10E3/uL 0.7-3.1 Monocytes(Absolute) 0.6 x10E3/uL 0.1-0.9 Eos (Absolute) 0.2 x10E3/uL 0.0-0.4 Baso (Absolute) 0.1 x10E3/uL 0.0-0.2 Immature Granulocytes 0 % Immature Grans (Abs) 0.0 x10E3/uL 0.0-0.1 Comp. Metabolic Panel (14) - 04/28/17 10:56 Glucose, Serum 96 mg/dL 65-99 BUN 35 mg/dL 6-24 Creatinine, Serum 1.55 mg/dL 0.57-1.00 eGFR If NonAfricn Am 37 mL/min/1.73 >59 eGFR If Africn Am 43 mL/min/1.73 >59 BUN/Creatinine Ratio 23 9-23 Sodium, Serum 143 mmol/L 134-144 Potassium, Serum 5.4 mmol/L 3.5-5.2 Chloride, Serum 101 mmol/L 96-106 Carbon Dioxide, Total 19 mmol/L 18-29 Calcium, Serum 9.4 mg/dL 8.7-10.2 Protein, Total, Serum 7.5 g/dL 6.0-8.5 Albumin, Serum 4.4 g/dL 3.5-5.5 Globulin, Total 3.1 g/dL 1.5-4.5 A/G Ratio 1.4 1.2-2.2 Bilirubin, Total 0.3 mg/dL 0.0-1.2 Alkaline Phosphatase, S 63 IU/L 39-117 AST (SGOT) 15 IU/L 0-40 ALT (SGPT) 20 IU/L 0-32 Lipid Panel - 04/28/17 10:56 Cholesterol, Total 217 mg/dL 100-199 Triglycerides 372 mg/dL 0-149 HDL Cholesterol 49 mg/dL >39 VLDL Cholesterol Zen 74 mg/dL 5-40 LDL Cholesterol Calc 94 mg/dL 0-99 Complete blood count (CBC) with automated white blood cell (WBC) differential - 06/18/17 19:30 Blood leukocytes automated count (number/volume) 8.0 10*3/uL 4.3-11.0 Blood erythrocytes automated count (number/volume) 4.36 10*6/uL 4.35-5.85 Venous blood hemoglobin measurement (mass/volume) 13.0 g/dL 11.5-16.0 Blood hematocrit (volume fraction) 39 % 35-52 Automated erythrocyte mean corpuscular volume 90 [foz_us] 80-99 Automated erythrocyte mean corpuscular hemoglobin (mass per erythrocyte) 30 pg 25-34 Automated erythrocyte mean corpuscular hemoglobin concentration measurement ( mass/volume) 33 g/dL 32-36 Automated erythrocyte distribution width ratio 13.5 % 10.0-14.5 Automated blood platelet count (count/volume) 289 10*3/uL 130-400 Automated blood platelet mean volume measurement 10.5 [foz_us] 7.4-10.4 Automated blood neutrophils/100 leukocytes 67 % 42-75 Automated blood lymphocytes/100 leukocytes 24 % 12-44 Blood monocytes/100 leukocytes 6 % 0-12 Automated blood eosinophils/100 leukocytes 3 % 0-10 Automated blood basophils/100 leukocytes 0 % 0-10 Blood neutrophils automated count (number/volume) 5.4 10*3 1.8-7.8 Blood lymphocytes automated count (number/volume) 1.9 10*3 1.0-4.0 Blood monocytes automated count (number/volume) 0.5 10*3 0.0-1.0 Automated eosinophil count 0.2 10*3/uL 0.0-0.3 Automated blood basophil count (count/volume) 0.0 10*3/uL 0.0-0.1 Comprehensive metabolic panel - 06/18/17 19:30 Serum or plasma sodium measurement (moles/volume) 140 mmol/L 135-145 Serum or plasma potassium measurement (moles/volume) 4.2 mmol/L 3.6-5.0 Serum or plasma chloride measurement (moles/volume) 106 mmol/L 98-107 Carbon dioxide 21 mmol/L 21-32 Serum or plasma anion gap determination (moles/volume) 13 mmol/L 5-14 Serum or plasma urea nitrogen measurement (mass/volume) 20 mg/dL 7-18 Serum or plasma creatinine measurement (mass/volume) 1.58 mg/dL 0.60-1.30 Serum or plasma urea nitrogen/creatinine mass ratio 13 NRG Serum or plasma creatinine measurement with calculation of estimated glomerular filtration rate 34 NRG Serum or plasma glucose measurement (mass/volume) 114 mg/dL 70-105 Serum or plasma calcium measurement (mass/volume) 8.7 mg/dL 8.5-10.1 Serum or plasma total bilirubin measurement (mass/volume) 0.3 mg/dL 0.1-1.0 Serum or plasma alkaline phosphatase measurement (enzymatic activity/volume) 58 U/L 40-136 Serum or plasma aspartate aminotransferase measurement (enzymatic activity/ volume) 20 U/L 5-34 Serum or plasma alanine aminotransferase measurement (enzymatic activity/volume ) 38 U/L 0-55 Serum or plasma protein measurement (mass/volume) 7.0 g/dL 6.4-8.2 Serum or plasma albumin measurement (mass/volume) 3.6 g/dL 3.2-4.5 Serum or plasma C reactive protein measurement (mass/volume) - 06/18/17 19:30 Serum or plasma C reactive protein measurement (mass/volume) 1.28 mg /dL 0.00-0.50 Complete blood count (CBC) with automated white blood cell (WBC) differential - 02/03/18 22:55 Blood leukocytes automated count (number/volume) 7.6 10*3/uL 4.3-11.0 Blood erythrocytes automated count (number/volume) 4.48 10*6/uL 4.35-5.85 Venous blood hemoglobin measurement (mass/volume) 13.1 g/dL 11.5-16.0 Blood hematocrit (volume fraction) 40 % 35-52 Automated erythrocyte mean corpuscular volume 90 [foz_us] 80-99 Automated erythrocyte mean corpuscular hemoglobin (mass per erythrocyte) 29 pg 25-34 Automated erythrocyte mean corpuscular hemoglobin concentration measurement ( mass/volume) 33 g/dL 32-36 Automated erythrocyte distribution width ratio 15.1 % 10.0-14.5 Automated blood platelet count (count/volume) 290 10*3/uL 130-400 Automated blood platelet mean volume measurement 10.4 [foz_us] 7.4-10.4 Automated blood neutrophils/100 leukocytes 59 % 42-75 Automated blood lymphocytes/100 leukocytes 31 % 12-44 Blood monocytes/100 leukocytes 6 % 0-12 Automated blood eosinophils/100 leukocytes 4 % 0-10 Automated blood basophils/100 leukocytes 0 % 0-10 Blood neutrophils automated count (number/volume) 4.5 10*3 1.8-7.8 Blood lymphocytes automated count (number/volume) 2.4 10*3 1.0-4.0 Blood monocytes automated count (number/volume) 0.5 10*3 0.0-1.0 Automated eosinophil count 0.3 10*3/uL 0.0-0.3 Automated blood basophil count (count/volume) 0.0 10*3/uL 0.0-0.1 PT panel in platelet poor plasma by coagulation assay - 02/03/18 22:55 Prothrombin time (PT) in platelet poor plasma by coagulation assay 12.2 s 12.2-14.7 INR in platelet poor plasma or blood by coagulation assay 0.9 0.8-1.4 Activated partial thromboplastin time (aPTT) in platelet poor plasma bycoagulation assay - 02/03/18 22:55 Activated partial thromboplastin time (aPTT) in platelet poor plasma bycoagulation assay 30 s 24-35 Comprehensive metabolic panel - 02/03/18 22:55 Serum or plasma sodium measurement (moles/volume) 140 mmol/L 135-145 Serum or plasma potassium measurement (moles/volume) 6.2 mmol/L 3.6-5.0 Serum or plasma chloride measurement (moles/volume) 109 mmol/L 98-107 Carbon dioxide 21 mmol/L 21-32 Serum or plasma anion gap determination (moles/volume) 10 mmol/L 5-14 Serum or plasma urea nitrogen measurement (mass/volume) 33 mg/dL 7-18 Serum or plasma creatinine measurement (mass/volume) 1.66 mg/dL 0.60-1.30 Serum or plasma urea nitrogen/creatinine mass ratio 20 NRG Serum or plasma creatinine measurement with calculation of estimated glomerular filtration rate 32 NRG Serum or plasma glucose measurement (mass/volume) 104 mg/dL 70-105 Serum or plasma calcium measurement (mass/volume) 9.1 mg/dL 8.5-10.1 Serum or plasma total bilirubin measurement (mass/volume) 0.3 mg/dL 0.1-1.0 Serum or plasma alkaline phosphatase measurement (enzymatic activity/volume) 71 U/L 40-136 Serum or plasma aspartate aminotransferase measurement (enzymatic activity/ volume) 29 U/L 5-34 Serum or plasma alanine aminotransferase measurement (enzymatic activity/volume ) 21 U/L 0-55 Serum or plasma protein measurement (mass/volume) 7.9 g/dL 6.4-8.2 Serum or plasma albumin measurement (mass/volume) 3.9 g/dL 3.2-4.5 Magnesium - 02/03/18 22:55 Magnesium 2.6 mg/dL 1.8-2.4 Serum or plasma troponin i.cardiac measurement (mass/volume) - 02/03/18 22:55 Serum or plasma troponin i.cardiac measurement (mass/volume) < ng/ mL <0.30 Myoglobin, serum - 02/03/18 22:55 Myoglobin, serum 33.4 ng/mL 10.0-92.0 Complete urinalysis with reflex to culture - 02/03/18 23:10 Urine color determination YELLOW NRG Urine clarity determination CLEAR NRG Urine pH measurement by test strip 6 5-9 Specific gravity of urine by test strip 1.010 1.016- 1.022 Urine protein assay by test strip, semi-quantitative NEGATIVE NEGATIVE Urine glucose detection by automated test strip NEGATIVE NEGATIVE Erythrocytes detection in urine sediment by light microscopy NEGATIVE NEGATIVE Urine ketones detection by automated test strip NEGATIVE NEGATIVE Urine nitrite detection by test strip NEGATIVE NEGATIVE Urine total bilirubin detection by test strip NEGATIVE NEGATIVE Urine urobilinogen measurement by automated test strip (mass/volume) NORMAL NORMAL Urine leukocyte esterase detection by dipstick NEGATIVE NEGATIVE Automated urine sediment erythrocyte count by microscopy (number/high power field) NONE NRG Automated urine sediment leukocyte count by microscopy (number/high power field ) [HPF] NRG Bacteria detection in urine sediment by light microscopy TRACE NRG Crystals detection in urine sediment by light microscopy NONE NRG Casts detection in urine sediment by light microscopy NONE NRG Mucus detection in urine sediment by light microscopy NEGATIVE NRG Complete urinalysis with reflex to culture NO NRG Urine drug screening test - 02/03/18 23:10 Urine phencyclidine detection by screening method NEGATIVE NEGATIVE Urine benzodiazepines detection by screening method NEGATIVE NEGATIVE Urine cocaine detection NEGATIVE NEGATIVE Urine amphetamines detection by screening method NEGATIVE NEGATIVE Urine methamphetamine detection by screening method NEGATIVE NEGATIVE Urine cannabinoids detection by screening method NEGATIVE NEGATIVE Urine opiates detection by screening method NEGATIVE NEGATIVE Urine barbiturates detection NEGATIVE NEGATIVE Screening urine tricyclic antidepressants detection NEGATIVE NEGATIVE Urine methadone detection by screening method NEGATIVE NEGATIVE Urine oxycodone detection NEGATIVE NEGATIVE Urine propoxyphene detection NEGATIVE NEGATIVE Serum or plasma troponin i.cardiac measurement (mass/volume) - 02/04/18 00:30 Serum or plasma troponin i.cardiac measurement (mass/volume) < ng/ mL <0.30 Encounters ACCT No. Visit Date/Time Discharge Status Pt. Type Provider Facility Loc./Unit Complaint [id number] 09/13/2014 14:47:00 ACT Unknown [id number] 02/03/2015 04:27:10 ACT Document Registration [id number] 02/19/2018 14:28:36 ACT Outpatient Virgie Bernal [id number] 04/29/2017 09:08:00 Document Registration [id number] 02/03/2018 22:20:00 02/04/2018 01:26:00 DIS Emergency MICHAEL BURRELL MD Via [facility] ER CP/SEIZURE [id number] 06/18/2017 18:03:00 06/18/2017 21:14:00 DIS Emergency STAR ORTIZ Via [facility] ER LT LEG SORE/BRUISING [id number] 03/06/2017 09:45:00 03/06/2017 11:46:00 DIS Emergency QUIN JONES MD [facility] ER ABD PAIN [id number] 11/23/2016 14:15:00 11/23/2016 16:00:00 DIS Emergency QUIN JONES MD [facility] ER SOA/COUGH/VOMITING [id number] 08/05/2016 20:48:00 08/05/2016 22:20:00 DIS Emergency HOLA BRIGHT DO [facility] ER R LEG WOUND/PAINFUL URINATION/LOWER BACK PAIN [id number] 01/27/2016 20:37:00 01/28/2016 02:05:00 DIS Emergency KAILA HOLA LANGE Via [facility] ER ABD PAIN,N,V,D [id number] 01/27/2016 01:55:00 01/27/2016 05:47:00 DIS Emergency SANTHOSH LOWE MD [facility] ER L FLANK PAIN [id number] 02/02/2015 15:37:00 02/02/2015 17:07:00 DIS Emergency STAR ORTIZ [facility] ER PAIN [id number] 01/19/2015 01:46:00 01/19/2015 04:46:00 DIS Emergency SANTHOSH LOWE MD [facility] ER MERSA FLARING UP [id number] 11/27/2014 20:30:00 11/27/2014 22:29:00 DIS Emergency STAR ORTIZ Via [facility] ER BACK PAIN [id number] 06/07/2014 16:31:00 06/10/2014 14:12:00 DIS Inpatient GAVI DEGROOT DO Via [facility] ICU INTRACTABLE L HIP PAIN, UNABLE TO CARE FOR SELF [id number] 06/05/2014 13:39:00 06/05/2014 16:45:00 DIS Emergency STAR ORTIZ Via [facility] ER FALL NECK PAIN AND BACK PAIN [id number] 05/23/2014 20:00:00 05/25/2014 11:35:00 DIS Inpatient JOANN GONZALES, MATTHEW Longoria Via [facility] ICU CHEST PAIN,COPD EXACERBATION,ELEVATED D-DIMER [id number] 04/09/2014 13:14:00 04/09/2014 16:26:00 DIS Emergency NEERAJ VILLA APRN Via [facility] ER ABD PAIN [id number] 04/06/2014 10:52:00 04/08/2014 11:45:00 DIS Inpatient GAVI DEGROOT DO Via [facility] 4TH RESPIRATORY DISTRESS, HYPOXIA,PNEUMONIA,CHEST PAIN [id number] 03/18/2014 16:36:00 03/18/2014 18:25:00 DIS Emergency NEERAJ VILLA APRN [facility] ER SOA [id number] 02/04/2014 19:05:00 02/04/2014 23:17:00 DIS Emergency HOLA BRIGHT DO [facility] ER CHEST PAIN [id number] 11/14/2013 14:21:00 11/14/2013 18:24:00 DIS Emergency NEERAJ VILLA MANAGER OF FINANCE Via [facility] ER LOWER BACK PAIN [id number] 09/28/2013 23:45:00 09/29/2013 02:02:00 DIS Emergency SANTHOSH LOWE MD [facility] ER CHEST PAIN [id number] 09/15/2013 12:59:00 09/15/2013 14:32:00 DIS Emergency QUIN JONES MD [facility] ER COUGH [id number] 09/13/2013 15:15:00 09/14/2013 08:46:00 DIS Inpatient ABELARDO AMANDA MD [facility] ICU CHEST PAIN, ELEVATED TROPONIA [id number] 07/29/2013 14:25:00 07/29/2013 14:49:00 DIS Outpatient VILLASEÑORBRI Via [facility] WOUNDCARE LEG ABSCESS [id number] 06/20/2013 00:03:00 06/24/2013 16:42:00 DIS Inpatient MIKAYLA LANGE GAVI Michael [facility] SURGICAL MULTIPLE ABSCESSES [id number] 06/04/2013 12:49:00 06/04/2013 23:59:59 CLS Outpatient ABELARDO AMANDA MD [facility] RAD CHF [id number] 06/04/2013 10:53:00 06/04/2013 23:59:59 CLS Outpatient ABELARDO AMANDA MD [facility] CARD CHF [id number] 05/30/2013 13:54:00 05/30/2013 15:27:00 DIS Emergency CHRISSY GONZALES, SANTHOSH Castellano Via [facility] ER CHEST PAIN [id number] 05/10/2013 01:14:00 05/11/2013 14:24:00 DIS Inpatient NGOC CASTILLO MD [facility] ICU NSTEMI,CHEST PAIN, HYPERTENSIVE URGENCY [id number] 04/29/2013 14:28:00 04/29/2013 23:59:59 CLS Outpatient [id number] 02/20/2018 20:45:00 ACT Emergency QUIN JONES MD [facility] ER SOB [id number] 01/27/2016 05:53:00 Document Registration [id number] 12/01/2014 13:05:00 Document Registration [id number] 12/17/2012 04:30:00 Document Registration [id number] 08/03/2012 03:50:00 Document Registration [id number] 07/23/2012 17:10:00 Document Registration [id number] 05/25/2012 03:15:00 Document Registration [id number] 05/09/2012 19:20:00 Document Registration [id number] 03/28/2012 06:00:00 Document Registration [id number] 10/10/2011 13:00:00 Document Registration [id number] 07/16/2011 01:55:00 Document Registration [id number] 07/02/2011 06:44:00 Document Registration [id number] 04/12/2011 19:39:00 Document Registration [id number] 03/22/2011 02:40:00 Document Registration [id number] 03/19/2011 17:35:00 Document Registration [id number] 03/03/2011 20:58:00 Document Registration [id number] 01/21/2011 21:56:00 Document Registration [id number] 12/28/2010 15:45:00 Document Registration [id number] 11/04/2010 20:43:00 Document Registration [id number] 02/05/2010 04:25:00 Document Registration [id number] 09/18/2016 08:45:00 Document Registration [id number] 01/31/2015 15:03:00 01/31/2015 23:59:59 CLS Outpatient KRANTHI PRECIADO MD [id number] 11/28/2014 09:37:00 11/28/2014 23:59:59 CLS Outpatient TRACEE LANGE APRN [id number] 08/05/2014 14:32:00 08/05/2014 23:59:59 CLS Outpatient TRACEE LANGE APRN [id number] 07/04/2014 12:54:00 07/04/2014 23:59:59 CLS Outpatient GAVI DEGROOT DO [id number] 05/02/2014 15:01:00 05/02/2014 23:59:59 CLS Outpatient GAVI DEGROOT DO [id number] 12/10/2013 14:53:00 12/10/2013 23:59:59 CLS Outpatient TRACEE LANGE APRN [id number] 09/29/2013 15:37:00 09/29/2013 23:59:59 CLS Outpatient TRACEE LANGE APRN [id number] 09/18/2013 12:00:00 09/18/2013 23:59:59 CLS Outpatient TRACEE LANGE APRN [id number] 07/15/2013 14:04:00 07/15/2013 23:59:59 CLS Outpatient KRANTHI PRECIADO MD [id number] 05/31/2013 09:17:00 05/31/2013 23:59:59 CLS Outpatient KRANTHI PRECIADO MD [id number] 12/09/2012 17:16:00 12/09/2012 23:59:59 CLS Outpatient TRACEE LANGE APRN [id number] 10/28/2012 12:04:00 10/28/2012 23:59:59 CLS Outpatient TRACEE LANGE APRN [id number] 10/19/2012 16:04:00 10/19/2012 23:59:59 CLS Outpatient [id number] 09/16/2012 15:22:00 09/16/2012 23:59:59 CLS Outpatient [id number] 08/14/2012 10:30:00 08/14/2012 23:59:59 CLS Outpatient KRANTHI PRECIADO MD [id number] 05/21/2013 10:29:00 Document Registration [id number] 03/02/2013 15:46:00 Document Registration [id number] 12/11/2017 11:00:00 12/11/2017 23:59:59 CLS Outpatient TRACEE LANGE APRN [facility]
[2018-02-20] MEDS ORDERED: meTOproloL SUCCINATE 50 MG (TOPROL XL) TAB PO SCH (21:15)
--- NOTE | 2018-02-20 21:26 | Diagnostic Imaging Report ---
INDICATION: Shortness of breath. EXAMINATION: Portable chest at 9:15 p.m. FINDINGS: Heart size and pulmonary vascularity are normal. Lungs are clear. There are no effusions or pneumothoraces. IMPRESSION: Negative chest. Dictated by: Dictated on workstation # [id number]
[2018-02-20 21:32] LABS: BILIRUBIN,URINE NEGATIVE (NEGATIVE); CLARITY,URINE CLEAR; COLOR,URINE YELLOW; GLUCOSE, URINE (UA) NEGATIVE (NEGATIVE); KETONES,URINE NEGATIVE (NEGATIVE); LEUKOCYTE ESTERASE ,URINE NEGATIVE (NEGATIVE); NITRITE,URINE NEGATIVE (NEGATIVE); PH,URINE 7 (5-9); PROTEIN,URINE 2+ (NEGATIVE); UROBILINOGEN,URINE NORMAL (NORMAL)
[2018-02-20 21:33] LABS: ALBUMIN 4.1 GM/DL (3.2-4.5); BILIRUBIN,TOTAL 0.5 MG/DL (0.1-1.0); CALCIUM 9.2 MG/DL (8.5-10.1); CREATININE SERUM 1.22 MG/DL (0.60-1.30); MAGNESIUM 2.1 MG/DL (1.8-2.4); POTASSIUM 4.2 MMOL/L (3.6-5.0); TOTAL PROTEIN 7.5 GM/DL (6.4-8.2)
[2018-02-20 21:39] LABS: SQUAMOUS EPITHELIAL CELL,UR RARE /HPF
[2018-02-20] MEDS ORDERED: hydrALAZINE (APESOLINE) 20 MG/ML VIAL ONE (22:11)
[2018-02-20] MEDS ORDERED: hydrALAZINE (APESOLINE) 20 MG/ML VIAL IV ONE (22:15)
[2018-02-20] MEDS ORDERED: ENOXAPARIN 80 MG/0.8 ML (LOVENOX) SYR SC ONE (22:30)
--- OUTSIDE RECORDS SUMMARY | 2018-02-20 22:32 | XMS REPORT | Clinical Summary ---
Author Author [facility] Organization [facility] Address Unknown Phone Unavailable Care Team Providers Care Cheesemaker Name Role Phone Sander Bates Unavailable Anita [...] in the Health Information Management department at [phone] for further assistance in locating additional records.[facility] Allergies Active Allergy Reactions Severity Noted [...] Taken Blood Pressure 110/80 11/11/2014 1:07 PM [employer] Pulse 72 11/11/2014 1:07 PM [employer] Temperature 36.5 C (97.7 F) 11/11/2014 1:07 PM [employer] Respiratory Rate 16 11/11/2014 1:07 PM [employer] Oxygen Saturation 94% 09/21/2014 7:45 AM [employer] Inhaled Oxygen - - Concentration Weight 82.1 kg (181 lb) 11/11/2014 1:07 PM [employer] Height 160 cm (5' 3") 11/11/2014 1:07 PM [employer] Body Mass Index 32.06 11/11/2014 1:07 PM [employer] Plan of Treatment Health Maintenance Due Date Last Done Comments PHYSICAL (COMPREHENSIVE) 1967 EXAM PERTUSSIS VACCINE 1971 TETANUS VACCINE 1977 CERVICAL CANCER SCREENING 1990 BREAST CANCER SCREENING 2000 COLORECTAL CANCER 2010 SCREENING INFLUENZA VACCINE 07/13/2018 07/12/2014 HEPATITIS C SCREENING Completed 06/11/2014, 06/11/2014, 06/10/2014 HIV SCREENING Completed 06/11/2014 Results Not on filefrom Last 3 Months
--- OUTSIDE RECORDS SUMMARY | 2018-02-20 22:42 | XMS REPORT | Continuity of Care Document ---
Demographics Preferred Language Unknown Marital Status Unknown [employer]ology Affiliation Unknown Race Unknown Ethnic Group Unknown Author Author [facility] Address Unknown Phone Unavailable Allergies Active Description Code Type Severity Reaction Onset Reported/Identified Relationship to Patient Clinical Status Yes nitrous oxide [id number] Drug Allergy Unknown N/A 06/08/2007 Yes AILEEN Inhibitors [id number] Drug Allergy Unknown N/A 05/25/2014 Medications There [...] APRN 599.0 Urinary Tract Infection 08/08/2008 KRANTHI PRECIAOD MD 599.0 Urinary Tract Infection 01/25/2009 KRANTHI [...] Chest Pain 04/26/2009 786.50 Chest Pain 04/26/2009 TRACEE LANGE APRN [...] DO, GAVI K 844.9 SPRAIN/STRAIN KNEE/LEG 03/09/2010 DEGROOT DO, GAVI K 719.46 PAIN IN JOINT INVOLVING LOWER LEG 03/09/2010 DEGROOT DO, GAVI K 844.9 SPRAIN/STRAIN KNEE/LEG 03/09/2010 TRACEE LANGE APRN 719.46 PAIN IN JOINT INVOLVING LOWER LEG 03/09/2010 TRACEE LANGE APRN 844.9 SPRAIN/STRAIN KNEE/LEG 03/09/2010 TRACEE LANGE APRN 719.46 PAIN IN JOINT INVOLVING LOWER LEG 03/09/2010 TRACEE LANGE APRN 844.9 SPRAIN/STRAIN KNEE/LEG 03/09/2010 KRATNHI PRECIADO MD 719.46 PAIN IN JOINT INVOLVING [...] MD 780.60 Fever Unspecified 03/19/2011 OZZY GONZALES, KRANTHI 784.0 Headache 03/19/2011 OZZY GONZALES, KRANTHI 799.02 [...] DO, GAVI K 780.39 SEIZURES OTHER 03/31/2012 DGEROOT DO, GAVI K 787.01 NAUSEA WITH VOMITING [...] NOS 08/04/2012 Ot 414.01 CORONARY ATHEROSCLEROSIS OF [place] CORON 08/04/2012 Ot 496 CHR AIRWAY OBSTRUCT [...] DO 788.30 URINARY INCONTINENCE UNSPECIFIED 09/16/2012 ANISA WATER POLLUTION SPECIALIST, TRACEE T 788.30 URINARY INCONTINENCE UNSPECIFIED 09/16/2012 [...] NOS 12/20/2012 Ot 414.01 CORONARY ATHEROSCLEROSIS OF [place] CORON 12/20/2012 Ot 486 PNEUMONIA, ORGANISM NOS [...] CASTILLO MD Ot 414.01 CORONARY ATHEROSCLEROSIS OF [place] CORON 05/11/2013 NGOC CASTILLO MD Ot 425.4 [...] TRACEE LANGE APRN 425.4 CARDIOMYOPHATHY 05/21/2013 ANISA WATER POLLUTION SPECIALIST, TRACEE T 854.00 INTRACRANIAL INJURY OF OTHER [...] DEGROOT DO Ot 414.01 CORONARY ATHEROSCLEROSIS OF [place] CORON 06/24/2013 GAVI DEGROOT DO Ot 425.4 [...] MD Ot 338.29 OTHER CHRONIC PAIN 09/14/2013 ABELARDO AMANDA MD Ot 403.90 HYPTNSV CHR KID DIS, UNSPEC, W CHR KD ST 09/14/2013 ABELARDO AMANDA MD Ot 414.01 CORONARY ATHEROSCLEROSIS OF [place] CORON 09/14/2013 ABELARDO AMANDA MD Ot 425.4 [...] 397.0 TRICUSPID VALVE DISEASE 06/10/2014 MIKAYLA LANGE GAVI K Ot 403.90 HYPTNSV [...] L03.115 CELLULITIS OF RIGHT LOWER LIMB 08/05/2016 MAIRN BRIGHT DOA K Ot N39.0 URINARY TRACT INFECTION, SITE NOT SPECIF 08/05/2016 MARIN BRIGHT DOA K Ot R30.0 DYSURIA 08/05/2016 MARIN BRIGHT DOA K Ot Z23 ENCOUNTER FOR IMMUNIZATION 08/05/2016 MARIN BRIGHT DOA K Ot Z79.899 OTHER [facility] (CURRENT) DRUG THERAPY 08/05/2016 KAILA LANGE HOLA K Ot Z87.891 PERSONAL HISTORY OF NICOTINE DEPENDENCE 11/23/2016 ABELARDO AMANDA MD J Ot 397.0 TRICUSPID VALVE DISEASE 11/23/2016 ABELARDO AMANDA MD J Ot 424.0 MITRAL VALVE DISORDER 11/23/2016 ABELARDO MAANDA MD J Ot 428.0 CONGESTIVE HEART FAILURE [...] MD Ot I25.10 ATHSCL HEART DISEASE OF [place] CORONARY 11/23/2016 QUIN JONES MD Ot J44.9 CHRONIC OBSTRUCTIVE PULMONARY DISEASE, U 11/23/2016 QUIN JONES MD Ot R05 COUGH 11/23/2016 QUIN JONES MD Ot Z79.899 OTHER [facility] (CURRENT) DRUG THERAPY 11/26/2016 QUIN JONES MD Ot I25.10 ATHSCL HEART DISEASE OF [place] CORONARY 11/26/2016 QUIN JONES MD Ot J44.9 CHRONIC OBSTRUCTIVE PULMONARY DISEASE, U 11/26/2016 QUIN JONES MD Ot R05 COUGH 11/26/2016 QUIN JONES MD Ot Z79.899 OTHER [facility] (CURRENT) DRUG THERAPY 12/26/2016 KAILA DO, HOLA K Ot I10 ESSENTIAL (PRIMARY) HYPERTENSION 12/26/2016 KAILA DO HOLA K Ot J44.9 CHRONIC OBSTRUCTIVE PULMONARY DISEASE, U 12/26/2016 KAILA , HOLA K Ot L03.115 CELLULITIS OF RIGHT LOWER LIMB 12/26/2016 KAILA MARIN LANGEA K Ot N39.0 URINARY TRACT INFECTION, SITE NOT SPECIF 12/26/2016 KAILA MARIN LANGEA K Ot R30.0 DYSURIA 12/26/2016 KAILA HOLA K Ot Z23 ENCOUNTER FOR IMMUNIZATION 12/26/2016 KAILA HOLA K Ot Z79.899 OTHER CREDIT CONTROL MANAGER (CURRENT) DRUG THERAPY 12/26/2016 KAILA HOLA K Ot Z87.891 PERSONAL HISTORY OF NICOTINE DEPENDENCE 01/01/2017 ABELARDO AMANDA MD Ot 397.0 TRICUSPID VALVE DISEASE 01/01/2017 ABELARDO AMANDA MD Ot 424.0 MITRAL VALVE DISORDER 01/01/2017 ABELARDO AMANDA MD Ot 428.0 CONGESTIVE HEART FAILURE NOS 01/01/2017 ABELARDO AMANDA MD Ot 428.0 CONGESTIVE HEART FAILURE NOS 03/06/2017 QUIN JONES MD Ot I16.0 HYPERTENSIVE URGENCY 03/06/2017 QUIN JONES MD Ot I25.10 ATHSCL HEART DISEASE OF [place] CORONARY 03/06/2017 QUIN JONES MD Ot J44.9 CHRONIC OBSTRUCTIVE PULMONARY DISEASE, U 03/06/2017 QUIN JONES MD Ot K59.00 CONSTIPATION, UNSPECIFIED 03/06/2017 QUIN JONES MD Ot R10.30 LOWER ABDOMINAL PAIN, UNSPECIFIED 03/06/2017 QUIN JONES MD Ot Z79.899 OTHER CREDIT CONTROL MANAGER (CURRENT) DRUG THERAPY 03/06/2017 ABELARDO AMANDA MD Ot 397.0 TRICUSPID VALVE DISEASE 03/06/2017 ABELARDO AMANDA MD Ot 424.0 MITRAL VALVE DISORDER 03/06/2017 ABELARDO AMANDA MD Ot 428.0 CONGESTIVE HEART FAILURE NOS 03/06/2017 ABELARDO AMANDA MD Ot 428.0 CONGESTIVE HEART FAILURE NOS 03/07/2017 QUIN JONES MD Ot I16.0 HYPERTENSIVE URGENCY 03/07/2017 QUIN JONES MD, Ot I25.10 ATHSCL HEART DISEASE OF [place] CORONARY 03/07/2017 QUIN JONES MD Ot J44.9 CHRONIC OBSTRUCTIVE PULMONARY DISEASE, U 03/07/2017 QUIN JONES MD Ot K59.00 CONSTIPATION, UNSPECIFIED 03/07/2017 QUIN JONES MD Ot R10.30 LOWER ABDOMINAL PAIN, UNSPECIFIED 03/07/2017 QUIN JONES MD, Ot Z79.899 OTHER [facility] (CURRENT) DRUG THERAPY 06/18/2017 ABELARDO AMANDA MD Ot 397.0 TRICUSPID VALVE DISEASE 06/18/2017 ABELARDO AMANDA MD Ot 424.0 MITRAL VALVE DISORDER 06/18/2017 ABELARDO AMANDA MD Ot 428.0 CONGESTIVE HEART FAILURE NOS 06/18/2017 ABELARDO AMANDA MD Ot 428.0 CONGESTIVE HEART FAILURE NOS 06/18/2017 STAR ORTIZ Ot D64.9 ANEMIA, UNSPECIFIED 06/18/2017 STAR ROTIZ Ot F31.9 BIPOLAR DISORDER, UNSPECIFIED 06/18/2017 STAR ORTIZ Ot F41.9 ANXIETY DISORDER, UNSPECIFIED 06/18/2017 STAR ORTIZ Ot G40.909 EPILEPSY, UNSP, NOT INTRACTABLE, WITHOUT 06/18/2017 STAR ORTIZ Ot I10 ESSENTIAL (PRIMARY) HYPERTENSION 06/18/2017 STAR ORTIZ Ot I25.10 ATHSCL HEART DISEASE OF [place] CORONARY 06/18/2017 STAR ORTIZ Ot I25.2 OLD [...] G40.909 EPILEPSY, UNSP, NOT INTRACTABLE, WITHOUT 02/04/2018 MICHAEL BURRELL MD Ot I10 ESSENTIAL (PRIMARY) HYPERTENSION 02/04/2018 MICHAEL BURRELL MD Ot I25.10 ATHSCL HEART DISEASE OF [place] CORONARY 02/04/2018 MICHAEL BURRELL MD Ot I25.2 [...] CONVULSIONS 02/04/2018 MICHAEL BURRELL MD Ot Z79.51 CREDIT CONTROL MANAGER (CURRENT) USE OF INHALED STERO 02/04/2018 MICHAEL BURRELL MD Ot Z79.52 [facility] (CURRENT) USE OF SYSTEMIC STER 02/04/2018 MICHAEL [...] MD Ot I25.10 ATHSCL HEART DISEASE OF [place] CORONARY 02/05/2018 MICHAEL BURRELL MD Ot I25.2 OLD MYOCARDIAL INFARCTION 02/05/2018 [...] CONVULSIONS 02/05/2018 MICHAEL BURRELL MD Ot Z79.51 [facility] (CURRENT) USE OF INHALED STERO 02/05/2018 MICHAEL BURRELL MD Ot Z79.52 CREDIT CONTROL MANAGER (CURRENT) USE OF SYSTEMIC STER 02/05/2018 MICHAEL [...] Woods 09/16/2012 General S [place] Kwan 10/28/2012 06237 ROUTINE VENIPUNCTURE 12/09/2012 51871 CMP 12/09/2012 65417 PHENOBARBITAL 12/09/2012 78909 TSH 12/09/2012 43543 CBC 12/09/2012 PODIATRY CURT [place]INBERG 03/02/2013 37.22 LEFT HEART CARDIAC CATH 05/10/2013 88.53 LT HEART ANGIOCARDIOGRAM 05/10/2013 88.56 CORONAR ARTERIOGR-2 CATH 05/10/2013 04956 ECHO 2D 05/21/2013 86.04 OTHER SKIN SUBQ I D 06/20/2013 Physical Wound Care, [facility] 06/29/[address] ABDOMEN & PELVIS W/ & W/ O CONTRAST 12/10/2013 41835 OXIMETRY 12/10/2013 64048 ROUTINE VENIPUNCTURE 08/05/2014 04520 CBC 08/05/2014 [id number] GFR CALC (RESULT ONLY) 08/05/2014 50212 CMP 08/05/2014 13557 OXIMETRY 11/28/2014 J1885 TORADOL PER 15 MG, INJ KETOROLAC TROMETHAMINE 11/28/2014 56560 EAR LAVAGE 02/02/2015 Results Test Result Range [...] culture - 08/05/16 21:25 Bacterial urine culture [id number] NRG COLONY COUNT >100,000/ML NRG FTX;REPORTABLE SENSITIVITY REPORTED 08/07/16 8:10 [facility] Bacterial susceptibility panel - 08/05/16 [...] susceptibility test by minimum inhibitory concentration - [facility] BUN - 09/17/16 09:45 BUN 24 mg/dL 6-24 Creatinine, Serum - 09/17/16 09:45 Creatinine, Serum 1.38 mg/dL 0.57-1.00 eGFR If NonAfricn Am 43 mL/min/1.73 >59 eGFR If Africn Am 50 mL/min/1.73 >59 Influenza virus A and B antigen detection - 11/23/16 14:40 FLU RESULT NEGATIVE FOR INFLUENZA A AND B ANTIGENS BY [facility] Complete blood count (CBC) with automated white [...] i.cardiac measurement (mass/volume) < ng/ mL <0.30 Complete blood count (CBC) with automated white blood cell (WBC) differential - 02/20/18 20:50 Blood leukocytes automated count (number/volume) 10.0 10*3/uL 4.3-11.0 Blood erythrocytes automated count (number/volume) 4.05 10*6/uL 4.35-5.85 Venous blood hemoglobin measurement (mass/volume) 12.0 g/dL 11.5-16.0 Blood hematocrit (volume fraction) 36 % 35-52 Automated erythrocyte mean corpuscular volume 90 [foz_us] 80-99 Automated erythrocyte mean corpuscular hemoglobin (mass per erythrocyte) 30 pg 25-34 Automated erythrocyte mean corpuscular hemoglobin concentration measurement ( mass/volume) 33 g/dL 32-36 Automated erythrocyte distribution width ratio 14.2 % 10.0-14.5 Automated blood platelet count (count/volume) 322 10*3/uL 130-400 Automated blood platelet mean volume measurement 10.5 [foz_us] 7.4-10.4 Automated blood neutrophils/100 leukocytes 77 % 42-75 Automated blood lymphocytes/100 leukocytes 16 % 12-44 Blood monocytes/100 leukocytes 5 % 0-12 Automated blood eosinophils/100 leukocytes 2 % 0-10 Automated blood basophils/100 leukocytes 0 % 0-10 Blood neutrophils automated count (number/volume) 7.7 10*3 1.8-7.8 Blood lymphocytes automated count (number/volume) 1.6 10*3 1.0-4.0 Blood monocytes automated count (number/volume) 0.5 10*3 0.0-1.0 Automated eosinophil count 0.2 10*3/uL 0.0-0.3 Automated blood basophil count (count/volume) 0.0 10*3/uL 0.0-0.1 Fibrin D-dimer FEU measurement in platelet poor plasma (mass/volume) - 20:50 Fibrin D-dimer FEU measurement in platelet poor plasma (mass/volume) 1.46 ug/mL 0.00-0.49 Comprehensive metabolic panel - 02/20/18 20:50 Serum or plasma sodium measurement (moles/volume) 138 mmol/L 135-145 Serum or plasma potassium measurement (moles/volume) 4.2 mmol/L 3.6-5.0 Serum or plasma chloride measurement (moles/volume) 100 mmol/L 98-107 Carbon dioxide 25 mmol/L 21-32 Serum or plasma anion gap determination (moles/volume) 13 mmol/L 5-14 Serum or plasma urea nitrogen measurement (mass/volume) 25 mg/dL 7-18 Serum or plasma creatinine measurement (mass/volume) 1.22 mg/dL 0.60-1.30 Serum or plasma urea nitrogen/creatinine mass ratio 20 NRG Serum or plasma creatinine measurement with calculation of estimated glomerular filtration rate 45 NRG Serum or plasma glucose measurement (mass/volume) 68 mg/dL 70-105 Serum or plasma calcium measurement (mass/volume) 9.2 mg/dL 8.5-10.1 Serum or plasma total bilirubin measurement (mass/volume) 0.5 mg/dL 0.1-1.0 Serum or plasma alkaline phosphatase measurement (enzymatic activity/volume) 68 U/L 40-136 Serum or plasma aspartate aminotransferase measurement (enzymatic activity/ volume) 16 U/L 5-34 Serum or plasma alanine aminotransferase measurement (enzymatic activity/volume ) 18 U/L 0-55 Serum or plasma protein measurement (mass/volume) 7.5 g/dL 6.4-8.2 Serum or plasma albumin measurement (mass/volume) 4.1 g/dL 3.2-4.5 Magnesium - 02/20/18 20:50 Magnesium 2.1 mg/dL 1.8-2.4 Serum or plasma troponin i.cardiac measurement (mass/volume) - 02/20/18 20:50 Serum or plasma troponin i.cardiac measurement (mass/volume) 0.36 ng /mL <0.30 Serum or plasma C reactive protein measurement (mass/volume) - 02/20/18 20:50 Serum or plasma C reactive protein measurement (mass/volume) 4.32 mg /dL 0.00-0.50 Complete urinalysis with reflex to culture - 02/20/18 21:23 Urine color determination YELLOW NRG Urine clarity determination CLEAR NRG Urine pH measurement by test strip 7 5-9 Specific gravity of urine by test strip 1.005 1.016- 1.022 Urine protein assay by test strip, semi-quantitative 2+ NEGATIVE Urine glucose detection by automated test [...] urine sediment by light microscopy NONE NRG Squamous epithelial cells detection in urine sediment by light microscopy RARE NRG Crystals detection in urine sediment by light microscopy NONE NRG Casts detection in urine sediment by light microscopy NONE NRG Mucus detection in urine sediment by light microscopy NEGATIVE NRG Complete urinalysis with reflex to culture NO NRG Encounters ACCT No. Visit Date/Time Discharge Status Pt. Type Provider Facility Loc./Unit Complaint [id number] 09/13/2014 14:47:00 ACT Unknown [email or web address] 02/03/2015 04:27:10 ACT Document Registration [id number] 02/19/2018 14:28:36 ACT Outpatient Virgie Bernal [id number] 04/29/2017 09:08:00 Document Registration [id number] 02/03/2018 22:20:00 02/04/2018 01:26:00 DIS Emergency MICHAEL BURRELL MD [facility] ER CP/SEIZURE [id number] 06/18/2017 18:03:00 06/18/2017 21:14:00 DIS Emergency STAR ORTIZ [facility] ER LT LEG SORE/BRUISING [id number] 03/06/2017 09:45:00 03/06/2017 11:46:00 DIS Emergency QUIN JONES MD [facility] ER ABD PAIN [id number] 11/23/2016 14:15:00 11/23/2016 16:00:00 DIS Emergency QUIN JONES MD [facility] ER SOA/COUGH/VOMITING [id number] 08/05/2016 20:48:00 08/05/2016 22:20:00 DIS Emergency HOLA BRIGHT DO [facility] ER R LEG WOUND/PAINFUL URINATION/LOWER BACK PAIN [id number] 01/27/2016 20:37:00 01/28/2016 02:05:00 DIS Emergency HOLA BRIGHT DO [facility] ER ABD PAIN,N,V,D [id number] 01/27/2016 01:55:00 01/27/2016 05:47:00 DIS Emergency SANTHOSH LOWE MD [facility] ER L FLANK PAIN [id number] 02/02/2015 15:37:00 02/02/2015 17:07:00 DIS Emergency STAR ORTIZ [facility] ER PAIN [id number] 01/19/2015 01:46:00 01/19/2015 04:46:00 DIS Emergency SANTHOSH LOWE MD [facility] ER MERSA FLARING UP [id number] 11/27/2014 20:30:00 11/27/2014 22:29:00 DIS Emergency STAR ORTIZ [facility] ER BACK PAIN [id number] 06/07/2014 16:31:00 06/10/2014 14:12:00 DIS Inpatient GAVI DEGROOT DO [facility] ICU INTRACTABLE L HIP PAIN, UNABLE TO CARE FOR SELF [id number] 06/05/2014 13:39:00 06/05/2014 16:45:00 DIS Emergency STAR ORTIZ [facility] ER FALL NECK PAIN AND BACK PAIN [id number] 05/23/2014 20:00:00 05/25/2014 11:35:00 DIS Inpatient JOANN GONZALES, MATTHEW Long[place] [facility] ICU CHEST PAIN,COPD EXACERBATION,ELEVATED D-DIMER [id number] 04/09/2014 13:14:00 04/09/2014 16:26:00 DIS Emergency NEERAJ VILLA WATER POLLUTION SPECIALIST [facility] ER ABD PAIN [id number] 04/06/2014 10:52:00 04/08/2014 11:45:00 DIS Inpatient GAVI DEGROOT DO [facility] 4TH RESPIRATORY DISTRESS, HYPOXIA,PNEUMONIA,CHEST PAIN [id number] 03/18/2014 16:36:00 03/18/2014 18:25:00 DIS Emergency NEERAJ VILLA WATER POLLUTION SPECIALIST [facility] ER SOA [id number] 02/04/2014 19:05:00 02/04/2014 23:17:00 DIS Emergency HOLA BRIGHT DO [facility] ER CHEST PAIN [id number] 11/14/2013 14:21:00 11/14/2013 18:24:00 DIS Emergency NEERAJ VILLA WATER POLLUTION SPECIALIST [facility] ER LOWER BACK PAIN [id number] 09/28/2013 23:45:00 09/29/2013 02:02:00 DIS Emergency SANTHOSH LOWE MD [facility] ER CHEST PAIN [id number] 09/15/2013 12:59:00 09/15/2013 14:32:00 DIS Emergency QUIN JONES MD [facility] ER COUGH [id number] 09/13/2013 15:15:00 09/14/2013 08:46:00 DIS Inpatient ABELARDO AMANDA MD [facility] ICU CHEST PAIN, ELEVATED TROPONIA [id number] 07/29/2013 14:25:00 07/29/2013 14:49:00 DIS Outpatient BRI VILLASEÑOR [facility] WOUNDCARE LEG ABSCESS [id number] 06/20/2013 00:03:00 06/24/2013 16:42:00 DIS Inpatient GAVI DEGROOT DO [facility] SURGICAL MULTIPLE ABSCESSES [id number] 06/04/2013 12:49:00 06/04/2013 23:59:59 CLS Outpatient ABELARDO AMANDA MD [facility] [id number] 06/04/2013 10:53:00 06/04/2013 23:59:59 CLS Outpatient ABELARDO AMANDA MD [facility] [id number] 05/30/2013 13:54:00 05/30/2013 15:27:00 DIS Emergency SANTHOSH LOWE MD [facility] ER CHEST PAIN [id number] 05/10/2013 01:14:00 05/11/2013 14:24:00 DIS Inpatient NGOC CASTILLO MD [facility] ICU NSTEMI,CHEST PAIN, HYPERTENSIVE URGENCY [id number] 04/29/2013 14:28:00 04/29/2013 23:59:59 CLS Outpatient [id number] 02/20/2018 22:00:00 ACT Inpatient GAVI DEGROOT DO [facility] ICU ELEVATED TROPONIN,ELEVATED D-DIMER,SOA [id number] 01/27/2016 05:53:00 Document Registration [id number] 12/01/2014 13:05:00 Document Registration [id number] 12/17/2012 04:30:00 Document Registration [id number] 08/03/2012 03:50:00 Document Registration [id number] 07/23/2012 17:10:00 Document Registration [id number] 05/25/2012 03:15:00 Document Registration [id number] 05/09/2012 19:20:00 Document Registration [id number] 03/28/2012 06:00:00 Document Registration [id number] 10/10/2011 13:00:00 Document Registration [id number] 07/16/2011 01:55:00 Document Registration [id number] 07/02/2011 06:44:00 Document Registration [id number] 04/12/2011 19:39:00 Document Registration [id number] 03/22/2011 02:40:00 Document Registration [id number] 03/19/2011 17:35:00 Document Registration [id number] 03/03/2011 20:58:00 Document Registration [id number] 01/21/2011 21:56:00 Document Registration [id number] 12/28/2010 15:45:00 Document Registration [id number] 11/04/2010 20:43:00 Document Registration [id number] 02/05/2010 04:25:00 Document Registration [id number] 09/18/2016 08:45:00 Document Registration [id number] 01/31/2015 15:03:00 01/31/2015 23:59:59 CLS Outpatient KRANTHI PRECIADO MD [id number] 11/28/2014 09:37:00 11/28/2014 23:59:59 CLS Outpatient TRACEE LANGE APRN [id number] 08/05/2014 14:32:00 08/05/2014 23:59:59 CLS Outpatient TRACEE LANGE APRN [id number] 07/04/2014 12:54:00 07/04/2014 23:59:59 CLS Outpatient GAVI DEGROOT DO [id number] 05/02/2014 15:01:00 05/02/2014 23:59:59 CLS Outpatient GAVI DEGROOT DO [id number] 12/10/2013 14:53:00 12/10/2013 23:59:59 CLS Outpatient ANISA FRAZIERVon TRACEE Nona [id number] 09/29/2013 15:37:00 09/29/2013 23:59:59 CLS Outpatient ANISA FRAZIERVon TRACEE Nona [id number] 09/18/2013 12:00:00 09/18/2013 23:59:59 CLS Outpatient ANISA WATER POLLUTION SPECIALISTTRACEE Longoria [id number] 07/15/2013 14:04:00 07/15/2013 23:59:59 CLS Outpatient KRANTHI PRECIADO MD [id number] 05/31/2013 09:17:00 05/31/2013 23:59:59 CLS Outpatient KRANTHI PRECIADO MD [id number] 12/09/2012 17:16:00 12/09/2012 23:59:59 CLS Outpatient ANISA WATER POLLUTION SPECIALISTTRACEE Longoria [id number] 10/28/2012 12:04:00 10/28/2012 23:59:59 CLS Outpatient TRACEE LANGE APRN [id number] 10/19/2012 16:04:00 10/19/2012 23:59:59 CLS Outpatient [id number] 09/16/2012 15:22:00 09/16/2012 23:59:59 CLS Outpatient [id number] 08/14/2012 10:30:00 08/14/2012 23:59:59 CLS Outpatient KRANTHI PRECIADO MD [id number] 05/21/2013 10:29:00 Document Registration [id number] 03/02/2013 15:46:00 Document Registration [id number] 12/11/2017 11:00:00 12/11/2017 23:59:59 CLS Outpatient TRACEE LANGE APRN [facility]
[2018-02-20] MEDS ORDERED: PATIENT MAY USE OWN MEDS, ALL PO SCH (22:45)
[2018-02-20 23:02] VITALS: BP 187/88
[2018-02-20 23:15] VITALS: BP 115/113
[2018-02-20 23:30] VITALS: BP 180/110
[2018-02-20] MEDS ORDERED: NITROGLYCERIN 0.4 MG SL TABS BTL 25'S SL PRN (23:30)
[2018-02-20 23:39] VITALS: BP 175/101
[2018-02-20 23:45] VITALS: BP 175/101
[2018-02-21] VITALS (17 sets, daily range): BP systolic 122–196; BP diastolic 64–122
[2018-02-21] MEDS: NS IV 1000 ML 1,000 ML IV SCH ×2 (00:32→07:26)
[2018-02-21] MEDS ORDERED: hydrALAZINE (APESOLINE) 20 MG/ML VIAL ONE (01:07)
[2018-02-21] MEDS ORDERED: hydrALAZINE (APESOLINE) 20 MG/ML VIAL IV ONE (01:15)
[2018-02-21] MEDS ORDERED: KETOROLAC 30 MG/ML VIAL ONE (02:06)
[2018-02-21] MEDS ORDERED: KETOROLAC 30 MG/ML VIAL IVP ONE (02:15)
[2018-02-21 05:16] LABS: BASOPHILS % (AUTO) 0 % (0-10); EOSINOPHILS # (AUTO) 0.1 10^3/uL (0.0-0.3); EOSINOPHILS % (AUTO) 1 % (0-10); HEMATOCRIT 36 % (35-52); LYMPHOCYTES % (AUTO) 10 % (12-44); MEAN CORPUSCULAR HEMOGLOBIN 30 PG (25-34); MEAN CORPUSCULAR HGB CONC 33 G/DL (32-36); MEAN CORPUSCULAR VOLUME 89 FL (80-99); MEAN PLATELET VOLUME 10.4 FL (7.4-10.4); MONOCYTES # (AUTO) 0.5 X 10^3 (0.0-1.0); MONOCYTES % (AUTO) 5 % (0-12); NEUTROPHILS % (AUTO) 85 % (42-75); PLATELET COUNT 290 10^3/uL (130-400); RED BLOOD COUNT 4.04 10^6/uL (4.35-5.85); RED CELL DISTRIBUTION WIDTH 14.8 % (10.0-14.5); WHITE BLOOD COUNT 10.7 10^3/uL (4.3-11.0)
[2018-02-21 05:50] LABS: ALBUMIN 3.8 GM/DL (3.2-4.5); BILIRUBIN,TOTAL 0.6 MG/DL (0.1-1.0); CALCIUM 8.9 MG/DL (8.5-10.1); CREATININE SERUM 1.09 MG/DL (0.60-1.30); POTASSIUM 3.8 MMOL/L (3.6-5.0); TOTAL PROTEIN 7.2 GM/DL (6.4-8.2)
[2018-02-21 05:56] LABS: MYOGLOBIN SERUM 55.9 NG/ML (10.0-92.0)
[2018-02-21 06:02] LABS: CARDIAC PROFILE 2 0.36 NG/ML (<0.30)
--- NOTE | 2018-02-21 08:50 | Diagnostic Imaging Report ---
INDICATION: Elevated d-dimer. Shortness of breath. CORRELATION STUDY: Chest 02/20/2018. Lung scan 04/06/2014. FINDINGS: Ventilation imaging utilizing DTPA was initiated; however, was unable to be completed owing to patient's inability to cooperate. 5.5 mCi of technetium-99m MAA utilized for perfusion imaging. Multiplanar imaging demonstrates no significant mismatched, peripherally based perfusion defect to suggest pulmonary embolism. IMPRESSION: 1. Unremarkable perfusion lung scan. No findings to suggest pulmonary embolism. Dictated by: Dictated on workstation # [id number]
[2018-02-21 08:56] LABS: AMPHETAMINE SCREEN, URINE NEGATIVE (NEGATIVE); BARBITURATE SCREEN URINE POSITIVE (NEGATIVE); BENZODIAZEPINES SCREEN URINE NEGATIVE (NEGATIVE); CANNABINOID SCREEN, URINE NEGATIVE (NEGATIVE); COCAINE SCREEN URINE NEGATIVE (NEGATIVE); METHADONE STAT NEGATIVE (NEGATIVE); METHAMPHETAMINE SCREEN URINE S NEGATIVE (NEGATIVE); OPIATE SCREEN URINE POSITIVE (NEGATIVE); OXYCODONE STAT NEGATIVE (NEGATIVE); PROPOXYPHENE STAT NEGATIVE (NEGATIVE); TRICYCLIC ANTIDEPRESSANTS SCRE NEGATIVE (NEGATIVE)
[2018-02-21] MEDS: ASPIRIN E.C. 325 MG (ECOTRIN) TABLET PO SCH (09:03)
[2018-02-21] MEDS: ENOXAPARIN 80 MG/0.8 ML (LOVENOX) SYR SC SCH ×2 (09:03→20:45)
[2018-02-21] MEDS: meTOproloL SUCCINATE 50 MG (TOPROL XL) TAB PO SCH (09:03)
[2018-02-21] MEDS: ACETAMINOPHEN 500 MG TAB (TYLENOL) PO PRN ×2 (09:03→18:52)
[2018-02-21] MEDS ORDERED: RT-ALBUTEROL/IPRATROPIUM 3 ML (DUONEB) VIAL INH PRN (10:15)
[2018-02-21] MEDS ORDERED: MORP15TA PO (10:55)
[2018-02-21] MEDS ORDERED: METO50TA15 PO (10:55)
[2018-02-21] MEDS ORDERED: PHEN97.2 PO (10:55)
[2018-02-21] MEDS ORDERED: PANT40TA2 PO (10:55)
[2018-02-21] MEDS ORDERED: MORP30TA PO (10:55)
[2018-02-21] MEDS ORDERED: RT-ALBUINH IH (10:55)
[2018-02-21] MEDS ORDERED: morphine IMMEDIATE RELEASE 15 MG TABLET PO NR (11:00)
[2018-02-21] MEDS ORDERED: amLODIPine 10 MG (NORVASC) TAB PO NR (13:00)
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
[2018-02-21] MEDS ORDERED: CLOPIDOGREL 300 MG (PLAVIX) TABLET PO NR (15:00)
[2018-02-21] MEDS ORDERED: lisINopril 20 MG (PRINIVIL) TABLET PO NR (15:00)
[2018-02-21] MEDS: PHENobarbital 97.2 MG (1-1/2 GRAIN) TABLET PO SCH (15:46)
[2018-02-21] MEDS ORDERED: FUROSEMIDE 40 MG/4 ML INJ (LASIX) ONE (18:46)
[2018-02-21] MEDS ORDERED: FUROSEMIDE 40 MG/4 ML INJ (LASIX) IVP ONE (19:00)
[2018-02-21] MEDS: morphine IMMEDIATE RELEASE 15 MG TABLET PO PRN (20:47)
[2018-02-22] VITALS (15 sets, daily range): BP systolic 107–147; BP diastolic 65–95
[2018-02-22] MEDS: ENOXAPARIN 80 MG/0.8 ML (LOVENOX) SYR SC SCH ×2 (07:56→21:10)
[2018-02-22] MEDS: ASPIRIN E.C. 325 MG (ECOTRIN) TABLET PO SCH (08:05)
[2018-02-22] MEDS: CLOPIDOGREL 75 MG (PLAVIX) TABLET PO SCH (08:05)
[2018-02-22] MEDS: meTOproloL SUCCINATE 50 MG (TOPROL XL) TAB PO SCH (08:06)
[2018-02-22] MEDS: PHENobarbital 97.2 MG (1-1/2 GRAIN) TABLET PO SCH (08:06)
[2018-02-22] MEDS ORDERED: PHENobarbital 97.2 MG (1-1/2 GRAIN) TABLET PO SCH (09:00)
--- NOTE | 2018-02-22 09:35 | Progress Note (SOAP) ---
Subjective Subjective/Events-last exam Pt drowsy but reports she is feeling better today. Review of Systems Date Seen by Provider: February 22, 2018 Time Seen by Provider: 09:30 Objective Exam Last Set of Vital Signs Vital Signs Date Time Temp Pulse Resp B/P (MAP) Pulse Ox O2 Delivery O2 Flow Rate FiO2 02/22/18 08:05 94 Room Air 02/22/18 07:00 89 02/22/18 03:50 99.4 20 135/75 (95) 02/21/18 20:05 1.00 02/21/18 10:08 28 Capillary Refill : Less Than 3 Seconds I&O Intake and Output 02/22/18 00:00 Intake Total 1900 ml Output Total 6225 ml Balance -4325 ml Intake Oral 900 ml IV Total 1000 ml Output Urine Total 6225 ml # Bowel Movements 3 General: Other (drowsy) Lungs: Clear to Auscultation Heart: Regular Rate Psych/Mental Status: Mental Status NL, Mood NL Results/Procedures Lab Laboratory Tests 02/21/18 16:45: B-Type Natriuretic Peptide 1517.6H Radiology Date of Exam: 02/20/18 CHEST 1 VIEW, AP/PA ONLY INDICATION: Shortness of breath. EXAMINATION: Portable chest at 9:15 p.m. FINDINGS: Heart size and pulmonary vascularity are normal. Lungs are clear. There are no effusions or pneumothoraces. IMPRESSION: Negative chest. Date of Exam: 02/21/18 LUNG SCAN PERFUSION INDICATION: Elevated d-dimer. Shortness of breath. CORRELATION STUDY: Chest 02/20/2018. Lung scan 04/06/2014. FINDINGS: Ventilation imaging utilizing DTPA was initiated; however, was unable to be completed owing to patient's inability to cooperate. 5.5 mCi of technetium-99m MAA utilized for perfusion imaging. Multiplanar imaging demonstrates no significant mismatched, peripherally based perfusion defect to suggest pulmonary embolism. IMPRESSION: 1. Unremarkable perfusion lung scan. No findings to suggest pulmonary embolism. Assessment/Plan Assessment/Plan Assessment & Plan 1. Respiratory distress with abnormal d-dimer - CXR and VQ scan normal - no apparent respiratory distress when asleep or while talking on the phone - discussed with patient that shortness of breath and rapid breathing may be partially related to anxiety 02/22 - BNP elevated at 1517.6 w/ decreased EF of 30% on Echo 02/21/18 - Cardiology consulted and believes SOA is likely secondary to CHF. - scheduled for heart cath this am. 2. elevated troponin w/ history of chronically elevated troponins - 0.36 x2 - Cardiology consulted - hx of chronically elevated troponin, no CAD per cath 02/22 - heart cath this 3. hx of vegetation on tricuspid valve - recommend f/u with cardiology 4. hx of illicit drug use - reports not drug use for 3 years. 5. Hypertension - restarted home metoprolol 02/22 - currently on metoprolol and amlodipine; BP improved with manual BP checks. 6. CHF w/ reduced EF of 30%; grade 2 diastolic dysfunction - Echo done 02/21/18 w/ above findings - Lasix given yesterday w/ significant diuresis; SOA improved Clinical Quality Measures DVT/VTE Risk/Contraindication: Risk Factor Score Per Nursin RFS Level Per Nursing on Admit: 2=Moderate Risk Score Comment: GAVI Waggoner DO February 22, 2018 09:35
[2018-02-22] MEDS ORDERED: HEParin 1000 UNIT/ML (10ML VIAL) FOR BOLUS ONE (10:05)
[2018-02-22] MEDS ORDERED: NS IV 1000 ML 3,000 ML ONE (10:05)
[2018-02-22] MEDS ORDERED: LIDOCAINE 1% INJ 20 ML 20 ML VIAL ONE ×2 (10:05→10:53)
[2018-02-22] MEDS ORDERED: fentaNYL INJECTION 100 MCG/2 ML AMP ONE (10:33)
[2018-02-22] MEDS ORDERED: diphenhydrAMINE 50 MG/ML INJ (BENADRYL) ONE (10:33)
[2018-02-22] MEDS ORDERED: MIDAZOLAM 5 MG/5 ML (VERSED) VIAL ONE (10:33)
[2018-02-22] MEDS ORDERED: NS IV 1000 ML 1,000 ML IV SCH (11:15)
--- NOTE | 2018-02-22 11:31 | Cardiology Progress Note ---
Cardiology SOAP Progress Note Subjective: No chest pain Objective: I&O/Vital Signs 02/22/18 02/22/18 02/22/18 02/22/18 01:00 03:25 03:50 07:00 Temp 99.4 Pulse 94 100 89 Resp 20 B/P (MAP) 135/75 (95) Pulse Ox 98 94 O2 Delivery Room Air Room Air 02/22/18 02/22/18 02/22/18 02/22/18 08:00 08:00 08:05 09:00 Temp 97.1 Pulse 97 Resp 18 B/P (MAP) 147/90 (109) Pulse Ox 94 94 94 94 O2 Delivery Room Air Room Air Room Air Room Air 02/22/18 00:00 Intake Total 450 ml Output Total 3025 ml Balance -2575 ml Weight (Pounds): 179 Weight (Ounces): 5.0 Weight (Calculated Kilograms): [id number] Constitutional: appears stated age, AAO x 3; No apparent distress; well- developed, well-nourished Respiratory: No accessory muscle use, No respiratory distress, No chest tender , No chest expansion is symmetric; chest is bilaterally symmetric; No lungs clear to percussion; lungs clear to auscultation; No crackles, No rhonchi, No rales, No stridor, No wheezing, No pleural rub, No other Cardiovascular: regular rate-rhythm; No irregularly irregular, No extra beats, No parasternal heave is noted, No JVD, No edema, No bradycardia, No tachycardia , No point of maximal impulse, No cardiac thrills are palpable; S1 and S2; No gallop/S3, No gallop/S4, No diastolic murmur, No systolic murmur, No friction rub, No click, No other Gastrointestional: No tender, No soft, No round, No distended, No pulsatile mass, No organomegaly, No guarding, No rebound, No tenderness, No hernia, No mass, No audible bowel sounds, No abnormal bowel sounds, No abdominal bruits, No spleenomegaly, No other Extremities: No normal range of motion, No non-tender, No normal inspection, No pedal edema, No calf tenderness, No normal capillary refill, No pelvis stable , No calf tenderness, No inflammation, No pedal edema, No slow capillary refill , No swelling, No other, No abrasion, No clubbing, No cyanosis, No ecchymosis, No laceration, No no lower extremity edema bilateral, No significant edema, No tenderness, No wound Neurologic/Psychiatric: no motor/sensory deficits, alert, normal mood/affect, oriented x 3, power is 5/5 both on sides Skin: No normal color, No warm/dry, No cyanosis, No cool, No diaphoresis, No damp, No ecchymosis, No jaundice, No mottled, No pallor, No rash, No tattoos/ piercings, No ulcerations, No rash on exposed areas, No ulcerations on exposed areas, No other Results/Procedures: Labs Laboratory Tests 02/21/18 16:45: B-Type Natriuretic Peptide 1517.6H A/P: Assessment/Dx: Chest pain, Dilated nonischemic cardiomyopathy, Acute systolic congestive heart failure, Severe hypertension, Moderate to severe mitral regurgitation, Pulmonary hypertension, Chronic kidney disease Shortness of breath, Positive troponin, Positive D dimer Plan: Chest pain, positive troponin 2. EKG did not reveal any acute ST-T wave abnormalities. 2 weeks ago her troponin were negative. Aspirin, Plavix. Coronary angiography today. No significant CAD. Mild right renal ostial disease, pressure difference across the lesion was 5 mmHg, no intervention is recommended. DC Lovenox ACS dose, can continue DVT dose. Acute systolic congestive heart failure: Dilated nonischemic cardiomyopathy, in 2013 the patient had an EF of 30 percent. Apparently she was offered a LifeVest. She presents with shortness of breath. Elevated BNP. Lasix given overnight. Echocardiogram shows an EF of 30 percent. LifeVest will be recommended. Severe hypertension: Amlodipine, lisinopril, hydralazine, metoprolol. Mild right renal ostial disease, negative pressure difference therefore no intervention is recommended. Much better control of blood pressure. Shortness of breath, pulmonary embolism has been ruled out with negative VQ scan. Preliminary echocardiogram shows an EF of 30 percent. Acute systolic congestive heart failure. Positive troponin, unclear etiology could be secondary to congestive heart failure. Moderate to severe mitral regurgitation: Could be contributing to shortness of breath. Transesophageal echocardiogram is recommended in the future to assess and come from the severity of mitral regurgitation. Moderate to severe Pulmonary hypertension: PA pressure 61 mmHg. Monitor clinically Positive D dimer, negative VQ scan for PE. Chronic kidney disease: GFR 52. Thank you for your consultation. Please call me if you have any questions. Brinda Jenkins MD, FACP, FACC, [facility], [facility], CCDS Interventional Cardiology Cardiac Electrophysiology Vascular Medicine and Endovascular Interventions Paolo JENKINS MD February 22, 2018 11:31 am
--- NOTE | 2018-02-22 11:32 | Coronary Angiography Report ---
Coronary Angiography Report DATE OF PROCEDURE: 02/22/18 INDICATION: Non-STEMI, severe hypertension refractory to medical therapy, congestive heart failure, kidney insufficiency. PREOPERATIVE DIAGNOSIS: Non-STEMI, severe hypertension refractory to medical therapy, congestive heart failure, kidney insufficiency. POSTOPERATIVE DIAGNOSIS: No significant CAD. Mild right ostial renal disease. HISTORY: This is a 57-year-old lady who presented with chest pain and shortness of breath. Positive troponins. LVEF 30 percent. Congestive heart failure, renal insufficiency, severe hypertension. Coronary angiography and renal angiography was recommended. Therefore, the patient was scheduled for coronary angiography. PROCEDURES PERFORMED: 1.Coronary angiography. 2.Left heart catheterization. 3. Aortic arch angiography. 4. Abdominal aortogram. 5. Bilateral selective renal angiogram. 6. Measurement of pressure difference across the right renal ostium. COMPLICATIONS: None. SPECIMENS: None. ESTIMATED BLOOD LOSS: 10 mL ANESTHESIA: Conscious sedation ANTICOAGULATION: IV heparin CONTRAST: 94 mL. FLUOROSCOPY: 4 minutes. FLOUROSCOPY DOSE: 583 mgy. PROCEDURE DETAILS: The patient is a 57 female and was brought to the floating labor gang supervisor after informed consent was taken. All the risks and complications were explained in detail; this included the risk of bleeding, vascular damage, stroke , NE and even . The patient was draped and prepped in the usual sterile fashion. Access was gained in the right femoral artery with a 5 [place] sheath. Coronary angiography was performed with a JL4 and JR4 catheter. Left heart catheterization, aortic arch angiogram, abdominal aortogram and bilateral selective renal angiogram was performed with the JR4 catheter. FINDINGS: 1.Left main: Patent. 2.LAD: Mild mid segment disease. Stenosis severity 20-30 percent. No other significant disease noted. Mild slow flow noted which may suggest microvascular dysfunction. 3.Left circumflex artery: Patent. 4.RCA: Patent. 5.Left heart catheterization: Aortic pressure 111/77 mmHg. LV pressure 121/9 mmHg. LVEDP 15 mmHg. Severe LV systolic dysfunction with an EF of 30 percent. Global hypokinesis. No gradient across the aortic valve. 6. Aortic arch angiography: No evidence of dissection or aneurysm. Normal proximal segments of the great arteries including brachiocephalic artery, left common carotid artery and subclavian artery. 7. Abdominal aortogram: No evidence of significant disease. [place] of bilateral renal arteries identified. 8. Bilateral selective renal angiography: Patent left renal artery. Mild ostial right renal artery. 9. The JR4 catheter was placed in the midsegment of the right renal artery. Blood pressure was 113 mmHg. Pullback was performed which showed an aortic pressure of 117 mmHg. Pressure difference of 4 mmHg which is not significant. CONCLUSIONS: Mild CAD. Severe LV systolic dysfunction. No significant bilateral renal artery stenosis. Brinda Jenkins MD, FACP, FACC, [facility] Interventional Cardiology Paolo JENKINS MD February 22, 2018 11:32 am
--- NOTE | 2018-02-22 11:32 | Cardiac Procedure Note-CS/ASA ---
Pre-Procedure Note Pre-Op Procedure Note H&P Reviewed The H&P was reviewed, patient examined and no changes noted. Date H&P Reviewed: February 22, 2018 Time H&P Reviewed: 10:45 Conscious Sedation Pre-Proced Time Reviewed: 10:45 ASA Class: 3 Airway Mallampati Classification: ([place] appropriate class) I. II. III, IV Lungs Heart ASA score ASA 1: a normal healthy patient ASA 2: a patient with a mild systemic disease (mid diabetes, controlled hypertension, obesity ASA 3: a patient with a severe systemic disease that limits activity (angina , COPD, prior Myocardial infarction) ASA 4: a patient with an incapacitating disease that is a constant threat to life (CHF, renal failure) ASA 5: a moribund patient not expected to survive 24 hrs. (ruptured aneurysm) ASA 6: a declared brain patient whose organs are being harvested. For emergent operations, add the letter E after the classification Grade 1 Sedation Plan: Analgesia, Amnesia, Plan communicated to team members, Discussed options with patient/fam, Discussed risks with patient/fam Note The patient is an appropriate candidate to undergo the planned procedure, sedation, and anesthesia. The patient immediately re-assessed prior to indication. Paolo PERKINS MD February 22, 2018 11:32 am
[2018-02-22] MEDS ORDERED: PATIENT MAY USE OWN MEDS, ALL PO SCH (11:45)
[2018-02-22] MEDS: NS IV 1000 ML 1,000 ML IV SCH (13:35)
[2018-02-22] MEDS: morphine IMMEDIATE RELEASE 15 MG TABLET PO PRN (21:10)
[2018-02-22] MEDS: ACETAMINOPHEN 500 MG TAB (TYLENOL) PO PRN (23:38)
[2018-02-23] VITALS (8 sets, daily range): BP systolic 128–159; BP diastolic 69–100
[2018-02-23] MEDS: NS IV 1000 ML 1,000 ML IV SCH ×2 (00:27→08:26)
[2018-02-23] MEDS: morphine IMMEDIATE RELEASE 15 MG TABLET PO PRN ×2 (03:55→11:05)
[2018-02-23 04:21] LABS: BASOPHILS % (AUTO) 0 % (0-10); EOSINOPHILS # (AUTO) 0.3 10^3/uL (0.0-0.3); EOSINOPHILS % (AUTO) 4 % (0-10); HEMATOCRIT 36 % (35-52); HEMOGLOBIN 12.1 G/DL (11.5-16.0); LYMPHOCYTES # (AUTO) 1.9 X 10^3 (1.0-4.0); LYMPHOCYTES % (AUTO) 30 % (12-44); MEAN CORPUSCULAR HEMOGLOBIN 30 PG (25-34); MEAN CORPUSCULAR HGB CONC 33 G/DL (32-36); MEAN CORPUSCULAR VOLUME 89 FL (80-99); MEAN PLATELET VOLUME 10.6 FL (7.4-10.4); MONOCYTES # (AUTO) 0.4 X 10^3 (0.0-1.0); MONOCYTES % (AUTO) 6 % (0-12); NEUTROPHILS # (AUTO) 3.8 X 10^3 (1.8-7.8); NEUTROPHILS % (AUTO) 59 % (42-75); PLATELET COUNT 312 10^3/uL (130-400); RED CELL DISTRIBUTION WIDTH 14.7 % (10.0-14.5); WHITE BLOOD COUNT 6.4 10^3/uL (4.3-11.0)
[2018-02-23 04:31] LABS: CALCIUM 8.8 MG/DL (8.5-10.1); CREATININE SERUM 1.3 MG/DL (0.60-1.30); POTASSIUM 4.1 MMOL/L (3.6-5.0)
[2018-02-23] MEDS: PHENobarbital 97.2 MG (1-1/2 GRAIN) TABLET PO SCH (08:26)
[2018-02-23] MEDS: meTOproloL SUCCINATE 50 MG (TOPROL XL) TAB PO SCH (08:26)
[2018-02-23] MEDS: ASPIRIN E.C. 325 MG (ECOTRIN) TABLET PO SCH (08:26)
[2018-02-23] MEDS: CLOPIDOGREL 75 MG (PLAVIX) TABLET PO SCH (08:26)
[2018-02-23] MEDS: ENOXAPARIN 80 MG/0.8 ML (LOVENOX) SYR SC SCH ×2 (08:27→20:51)
[2018-02-23] MEDS ORDERED: meTOproloL SUCCINATE 50 MG (TOPROL XL) TAB PO NR (09:00)
[2018-02-23] MEDS: lisINopril 10 MG (PRINIVIL) TABLET PO SCH (09:19)
[2018-02-23] MEDS: SPIRONOLACTONE 25 MG (ALDACTONE) TAB PO SCH (09:19)
[2018-02-23] MEDS: FUROSEMIDE 40 MG/4 ML INJ (LASIX) IVP SCH (09:19)
--- NOTE | 2018-02-23 09:29 | Cardiology Progress Note ---
Cardiology SOAP Progress Note Subjective: No significant shortness of breath Objective: I&O/Vital Signs 02/23/18 02/23/18 02/23/18 02/23/18 00:00 00:00 01:00 04:00 Temp 98.3 Pulse 80 89 Resp 16 B/P (MAP) 128/80 (96) Pulse Ox 94 92 94 O2 Delivery Room Air Room Air Room Air O2 Flow Rate 2.00 02/23/18 02/23/18 02/23/18 02/23/18 04:00 07:00 07:43 08:00 Temp 97.9 97.3 Pulse 83 85 82 Resp 16 18 B/P (MAP) 138/86 (103) 159/95 (116) Pulse Ox 92 91 O2 Delivery Room Air Room Air Room Air 02/23/18 08:00 O2 Delivery Room Air 02/23/18 00:00 Intake Total 750 ml Output Total 1000 ml Balance -250 ml Weight (Pounds): 178 Weight (Ounces): 5.0 Weight (Calculated Kilograms): 80.263984 Constitutional: appears stated age, AAO x 3; No apparent distress; well- developed, well-nourished Respiratory: No accessory muscle use, No respiratory distress, No chest tender , No chest expansion is symmetric; chest is bilaterally symmetric; No lungs clear to percussion; lungs clear to auscultation; No crackles, No rhonchi, No rales, No stridor, No wheezing, No pleural rub, No other Cardiovascular: regular rate-rhythm; No irregularly irregular, No extra beats, No parasternal heave is noted, No JVD, No edema, No bradycardia, No tachycardia , No point of maximal impulse, No cardiac thrills are palpable; S1 and S2; No gallop/S3, No gallop/S4, No diastolic murmur, No systolic murmur, No friction rub, No click, No other Gastrointestional: No tender, No soft, No round, No distended, No pulsatile mass, No organomegaly, No guarding, No rebound, No tenderness, No hernia, No mass, No audible bowel sounds, No abnormal bowel sounds, No abdominal bruits, No spleenomegaly, No other Extremities: No normal range of motion, No non-tender, No normal inspection, No pedal edema, No calf tenderness, No normal capillary refill, No pelvis stable , No calf tenderness, No inflammation, No pedal edema, No slow capillary refill , No swelling, No other, No abrasion, No clubbing, No cyanosis, No ecchymosis, No laceration, No no lower extremity edema bilateral, No significant edema, No tenderness, No wound Neurologic/Psychiatric: no motor/sensory deficits, alert, normal mood/affect, oriented x 3, power is 5/5 both on sides Skin: No normal color, No warm/dry, No cyanosis, No cool, No diaphoresis, No damp, No ecchymosis, No jaundice, No mottled, No pallor, No rash, No tattoos/ piercings, No ulcerations, No rash on exposed areas, No ulcerations on exposed areas, No other Results/Procedures: Labs Laboratory Tests 02/23/18 04:00: White Blood Count 6.4, Red Blood Count 4.10L, Hemoglobin 12.1, Hematocrit 36, Mean Corpuscular Volume 89, Mean Corpuscular Hemoglobin 30, Mean Corpuscular Hemoglobin Concent 33, Red Cell Distribution Width 14.7H, Platelet Count 312, Mean Platelet Volume 10.6H, Neutrophils (%) (Auto) 59, Lymphocytes (%) (Auto) 30 , Monocytes (%) (Auto) 6, Eosinophils (%) (Auto) 4, Basophils (%) (Auto) 0, Neutrophils # (Auto) 3.8, Lymphocytes # (Auto) 1.9, Monocytes # (Auto) 0.4, Eosinophils # (Auto) 0.3, Basophils # (Auto) 0.0, Sodium Level 139, Potassium Level 4.1, Chloride Level 103, Carbon Dioxide Level 24, Anion Gap 12, Blood Urea Nitrogen 27H, Creatinine 1.30, Estimat Glomerular Filtration Rate 42, BUN/ Creatinine Ratio 21, Glucose Level 105, Calcium Level 8.8 A/P: Assessment/Dx: Chest pain, Dilated nonischemic cardiomyopathy, Acute systolic congestive heart failure, Severe hypertension, Moderate to severe mitral regurgitation, Pulmonary hypertension, Chronic kidney disease Shortness of breath, Positive troponin, Positive D dimer Plan: Chest pain, positive troponin 2. EKG did not reveal any acute ST-T wave abnormalities. 2 weeks ago her troponin were negative. Aspirin, Plavix. Coronary angiography today. No significant CAD. Mild right renal ostial disease, pressure difference across the lesion was 5 mmHg, no intervention is recommended. DC Lovenox ACS dose, can continue DVT dose. Acute systolic congestive heart failure: Dilated nonischemic cardiomyopathy, in 2013 the patient had an EF of 30 percent. Apparently she was offered a LifeVest. She presents with shortness of breath. Elevated BNP. Lasix given overnight. Echocardiogram shows an EF of 30 percent. LifeVest will be recommended. Increase metoprolol. Start low-dose lisinopril and Aldactone. Lasix 80 mg IV today. on Guideline directed medical therapy (GDMT). Severe hypertension: lisinopril, metoprolol. Mild right renal ostial disease, negative pressure difference therefore no intervention is recommended. Much better control of blood pressure. Shortness of breath, pulmonary embolism has been ruled out with negative VQ scan. echocardiogram shows an EF of 30 percent. Acute systolic congestive heart failure. Positive troponin, unclear etiology could be secondary to congestive heart failure. Moderate to severe mitral regurgitation: Could be contributing to shortness of breath. Transesophageal echocardiogram is recommended in the future to assess and come from the severity of mitral regurgitation. I will recommend that we do it as an outpatient when she is more stable. However if her shortness of breath does not improve significantly she may require it as an inpatient. Moderate to severe Pulmonary hypertension: PA pressure 61 mmHg. Monitor clinically Positive D dimer, negative VQ scan for PE. Chronic kidney disease: GFR 52. Previously GFR as low as 24. I will arrange nephrology referral as an outpatient. Thank you for your consultation. Please call me if you have any questions. Brinda Jenkins MD, FACP, FACC, FSCAI, FHRS, CCDS Interventional Cardiology Cardiac Electrophysiology Vascular Medicine and Endovascular Interventions Paolo JENKINS MD February 23, 2018 9:29 am
[2018-02-23] MEDS ORDERED: NS IV 500 ML 500 ML ONE (10:45)
--- NOTE | 2018-02-23 15:31 | Progress Note (SOAP) ---
Subjective Subjective/Events-last exam Patient laying in bed and resting. When asked about how she was feeling, reports she "feels like normal" and is wondering when she can go home. Explained that cardiology did not want to discharge here without a LifeVest, and those arrangements have not been completed yet. Denies chest pain or pressure, denies shortness of breath. No complaints at this time, other than is anxious to go home. No signifincant concerns from nursing staff other than patient also has history of seizure disorder and they are somewhat concerned if something should happen to patient in the middle of the seizure. The patient has had a life vest before and this concern was addressed at that time, although I do not have the outcome of this discussion available to me at this time. Review of Systems Date Seen by Provider: February 23, 2018 Time Seen by Provider: 15:00 General: No Chills, No Night Sweats, No Fatigue HEENT: No Eye Pain, No Dysphasia Pulmonary: No Dyspnea, No Cough Cardiovascular: No: Chest Pain, Palpitations, Edema Gastrointestinal: No: Nausea, Vomiting, Abdominal Pain, Melena Genitourinary: No Dysuria, No Hematuria Musculoskeletal: No: neck pain, back pain Neurological: No: Weakness, Numbness, Incoordination, Change in speech, Confusion, Seizures Objective Exam Last Set of Vital Signs Vital Signs Date Time Temp Pulse Resp B/P (MAP) Pulse Ox O2 Delivery O2 Flow Rate FiO2 02/23/18 13:00 82 02/23/18 12:12 Room Air 02/23/18 12:00 147/91 (109) 02/23/18 10:08 97.3 18 98 02/23/18 00:00 2.00 02/21/18 10:08 28 Capillary Refill : Less Than 3 Seconds I&O Intake and Output 02/22/18 23:59 Intake Total 1670 ml Output Total 4600 ml Balance -2930 ml Intake Oral 1170 ml IV Total 500 ml Output Urine Total 4600 ml General: Alert, Oriented X3, Cooperative, No Acute Distress HEENT: Atraumatic, EOMI, Mucous Memb Moist/[place] Neck: No Thyromegaly Lungs: Normal Air Movement, Other (diminished in bases) Heart: Regular Rate, Normal S1, Normal S2, Other (soft systolic murmur) Abdomen: Normal Bowel Sounds, Soft, No Tenderness, No Masses Extremities: No Clubbing, No Cyanosis Skin: No Rashes, No Significant Lesion Neuro: Normal Speech, Normal Tone, Sensation Intact, Cranial Nerves 3-12 NL Psych/Mental Status: Mental Status NL, Mood NL Results/Procedures Lab Laboratory Tests 02/23/18 04:00: White Blood Count 6.4, Red Blood Count 4.10L, Hemoglobin 12.1, Hematocrit 36, Mean Corpuscular Volume 89, Mean Corpuscular Hemoglobin 30, Mean Corpuscular Hemoglobin Concent 33, Red Cell Distribution Width 14.7H, Platelet Count 312, Mean Platelet Volume 10.6H, Neutrophils (%) (Auto) 59, Lymphocytes (%) (Auto) 30 , Monocytes (%) (Auto) 6, Eosinophils (%) (Auto) 4, Basophils (%) (Auto) 0, Neutrophils # (Auto) 3.8, Lymphocytes # (Auto) 1.9, Monocytes # (Auto) 0.4, Eosinophils # (Auto) 0.3, Basophils # (Auto) 0.0, Sodium Level 139, Potassium Level 4.1, Chloride Level 103, Carbon Dioxide Level 24, Anion Gap 12, Blood Urea Nitrogen 27H, Creatinine 1.30, Estimat Glomerular Filtration Rate 42, BUN/ Creatinine Ratio 21, Glucose Level 105, Calcium Level 8.8 Radiology Date of Exam: 02/20/18 CHEST 1 VIEW, AP/PA ONLY INDICATION: Shortness of breath. EXAMINATION: Portable chest at 9:15 p.m. FINDINGS: Heart size and pulmonary vascularity are normal. Lungs are clear. There are no effusions or pneumothoraces. IMPRESSION: Negative chest. Date of Exam: 02/21/18 LUNG SCAN PERFUSION INDICATION: Elevated d-dimer. Shortness of breath. CORRELATION STUDY: Chest 02/20/2018. Lung scan 04/06/2014. FINDINGS: Ventilation imaging utilizing DTPA was initiated; however, was unable to be completed owing to patient's inability to cooperate. 5.5 mCi of technetium-99m MAA utilized for perfusion imaging. Multiplanar imaging demonstrates no significant mismatched, peripherally based perfusion defect to suggest pulmonary embolism. IMPRESSION: 1. Unremarkable perfusion lung scan. No findings to suggest pulmonary embolism. Assessment/Plan Assessment/Plan Assessment & Plan 1. Respiratory distress with abnormal d-dimer - CXR and VQ scan normal - no apparent respiratory distress when asleep or while talking on the phone - discussed with patient that shortness of breath and rapid breathing may be partially related to anxiety 02/22 - BNP elevated at 1517.6 w/ decreased EF of 30% on Echo 02/21/18 - Cardiology consulted and believes SOA is likely secondary to CHF. - scheduled for heart cath this . 02/23 -no intervention heart cath done 02/22 -recommendations from cardiology are for medical management 2. elevated troponin w/ history of chronically elevated troponins - 0.36 x2 - Cardiology consulted - hx of chronically elevated troponin, no CAD per cath 02/22 - heart cath this am 02/23 - no intervention heart cath on 02/22 3. 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 hx of illicit drug use - reports not drug use for 3 years. 5. Hypertension - restarted home metoprolol 02/22 - currently on metoprolol and amlodipine; BP improved with manual BP checks. 02/23 - normotensive today 6. CHF w/ reduced EF of 30%; grade 2 diastolic dysfunction - Echo done 02/21/18 w/ above findings - Lasix given yesterday w/ significant diuresis; SOA improved 02/23 - diuresis again today; EF 30%, per cardiology okay to be discharged with life vest, which they are in the process of setting up Dispo: Due to low EF and afib, pt unable to be discharged without a LifeVest; if this becomes available tonight, will place DC orders tonight, otherwise will have pt remain inpatient in stepdown status and can be moved to floor if ICU bed needed. If moved to floor MUST STAY ON TELEMETRY. Anticipate DC in the next 12-36 hours. Clinical Quality Measures DVT/VTE Risk/Contraindication: Risk Factor Score Per Nursin RFS Level Per Nursing on Admit: 2=Moderate Risk Score Comment: [place] Copy Copies To 1: [facility]/ELMER GARCIA DO February 23, 2018 15:31
[2018-02-23] MEDS: ACETAMINOPHEN 500 MG TAB (TYLENOL) PO PRN (15:43)
[2018-02-24] VITALS: BP 156/85
[2018-02-24] MEDS: ACETAMINOPHEN 500 MG TAB (TYLENOL) PO PRN (00:45)
[2018-02-24 04:00] VITALS: BP 147/82
[2018-02-24 08:30] VITALS: BP 148/86
[2018-02-24] MEDS: ASPIRIN E.C. 325 MG (ECOTRIN) TABLET PO SCH (08:31)
[2018-02-24] MEDS: FUROSEMIDE 40 MG/4 ML INJ (LASIX) IVP SCH (08:31)
[2018-02-24] MEDS: lisINopril 10 MG (PRINIVIL) TABLET PO SCH (08:31)
[2018-02-24] MEDS: ENOXAPARIN 80 MG/0.8 ML (LOVENOX) SYR SC SCH (08:31)
[2018-02-24] MEDS: SPIRONOLACTONE 25 MG (ALDACTONE) TAB PO SCH (08:32)
[2018-02-24] MEDS ORDERED: meTOprolol SUCCINATE 100 MG (TOPROL XL) TAB PO SCH (09:00)
[2018-02-24] MEDS: PHENobarbital 97.2 MG (1-1/2 GRAIN) TABLET PO SCH (09:44)
--- NOTE | 2018-02-24 09:58 | Cardiology Progress Note ---
Cardiology SOAP Progress Note Subjective: Off oxygen. No shortness of breath or hypoxia. Objective: I&O/Vital Signs 02/24/18 02/24/18 02/24/18 02/24/18 00:00 01:00 04:00 07:00 Temp 96.0 98.3 Pulse 80 82 74 71 Resp 17 19 B/P (MAP) 156/85 (108) 147/82 (103) Pulse Ox 98 96 O2 Delivery Room Air Room Air 02/24/18 02/24/18 02/24/18 08:30 09:20 09:21 Temp 96.4 Pulse 71 75 Resp 16 B/P (MAP) 148/86 (106) Pulse Ox 100 91 91 O2 Delivery Room Air Room Air FiO2 21 02/24/18 00:00 Intake Total 1780 ml Output Total 3400 ml Balance -1620 ml Weight (Pounds): 173 Weight (Ounces): 0.0 Weight (Calculated Kilograms): 78.191692 Constitutional: appears stated age, AAO x 3; No apparent distress; well- developed, well-nourished Respiratory: No accessory muscle use, No respiratory distress, No chest tender , No chest expansion is symmetric; chest is bilaterally symmetric; No lungs clear to percussion; lungs clear to auscultation; No crackles, No rhonchi, No rales, No stridor, No wheezing, No pleural rub, No other Cardiovascular: regular rate-rhythm; No irregularly irregular, No extra beats, No parasternal heave is noted, No JVD, No edema, No bradycardia, No tachycardia , No point of maximal impulse, No cardiac thrills are palpable; S1 and S2; No gallop/S3, No gallop/S4, No diastolic murmur, No systolic murmur, No friction rub, No click, No other Gastrointestional: No tender, No soft, No round, No distended, No pulsatile mass, No organomegaly, No guarding, No rebound, No tenderness, No hernia, No mass, No audible bowel sounds, No abnormal bowel sounds, No abdominal bruits, No spleenomegaly, No other Extremities: No normal range of motion, No non-tender, No normal inspection, No pedal edema, No calf tenderness, No normal capillary refill, No pelvis stable , No calf tenderness, No inflammation, No pedal edema, No slow capillary refill , No swelling, No other, No abrasion, No clubbing, No cyanosis, No ecchymosis, No laceration, No no lower extremity edema bilateral, No significant edema, No tenderness, No wound Neurologic/Psychiatric: no motor/sensory deficits, alert, normal mood/affect, oriented x 3, power is 5/5 both on sides Skin: No normal color, No warm/dry, No cyanosis, No cool, No diaphoresis, No damp, No ecchymosis, No jaundice, No mottled, No pallor, No rash, No tattoos/ piercings, No ulcerations, No rash on exposed areas, No ulcerations on exposed areas, No other A/P: Assessment/Dx: Chest pain, Dilated nonischemic cardiomyopathy, Acute systolic congestive heart failure, Severe hypertension, Moderate to severe mitral regurgitation, Pulmonary hypertension, Chronic kidney disease Shortness of breath, Positive troponin, Positive D dimer Plan: Chest pain, positive troponin 2. EKG did not reveal any acute ST-T wave abnormalities. 2 weeks ago her troponin were negative. Aspirin, Plavix. Coronary angiography today. No significant CAD. Mild right renal ostial disease, pressure difference across the lesion was 5 mmHg, no intervention is recommended. DC Lovenox ACS dose, can continue DVT dose. Acute systolic congestive heart failure: Dilated nonischemic cardiomyopathy, in 2013 the patient had an EF of 30 percent. Apparently she was offered a LifeVest. She presents with shortness of breath. Elevated BNP. Lasix given overnight. Echocardiogram shows an EF of 30 percent. LifeVest expected this afternoon. Continue same dose of metoprolol, lisinopril and Aldactone. Patient will be discharged on 40 mg of by mouth Lasix.. on Guideline directed medical therapy (GDMT) since 02/23/2018. Severe hypertension: lisinopril, metoprolol. Mild right renal ostial disease, negative pressure difference therefore no intervention is recommended. Much better control of blood pressure. Shortness of breath, pulmonary embolism has been ruled out with negative VQ scan. echocardiogram shows an EF of 30 percent. Acute systolic congestive heart failure. Positive troponin, unclear etiology could be secondary to congestive heart failure. Moderate to severe mitral regurgitation: Could be contributing to shortness of breath. Transesophageal echocardiogram is recommended in the future to assess and come from the severity of mitral regurgitation- will be done as an outpatient. Moderate to severe Pulmonary hypertension: PA pressure 61 mmHg. Monitor clinically Positive D dimer, negative VQ scan for PE. Chronic kidney disease: GFR 52. Previously GFR as low as 24. I will arrange nephrology referral as an outpatient. Once the patient gets a LifeVest, I'm okay with discharge if okay with Dr. Laurent. Patient to follow-up cardiology in the next 7-10 days. Thank you for your consultation. Please call me if you have any questions. Brinda Jenkins MD, FACP, FACC, FSCAI, FHRS, CCDS Interventional Cardiology Cardiac Electrophysiology Vascular Medicine and Endovascular Interventions Paolo JENKINS MD February 24, 2018 9:58 am
[2018-02-24 12:30] VITALS: BP 148/87
--- NOTE | 2018-02-24 12:44 | Discharge Summary ---
Diagnosis/Chief Complaint Date of Admission February 20, 2018 at 22:00 Date of Discharge 02/24/18 Admission Diagnosis Admission Diagnosis 1. Respiratory distress with abnormal d-dimer 2. elevated troponin 3. 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 hx of illicit drug use 5. Hypertension Discharge Diagnosis Shortness of breath - resolved Chest pain Dilated Nonischemic Cardiomyopathy -EF 30 % -discharge with life vest -pt reports she has had one in the past Acute systolic heart failure HTN Moderate to Severe Mitral Regurgitation Pulmonary HTN Chronic Kidney Disease History of Drug Abuse, quit three years ago per patient Epilepsy Chronic Pain Patient was on no medications when she came into the hospital. 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 Will also discharge on anticonvulsant used in hospital, and patient will need to follow up with PCP to determine if plan is to continue this medication to change to one of the newer agents. Patient reports she is familiar with having a lifevest, as she has had one in the past. Follow up in clinic with PCP tomorrow as scheduled, follow up with cardiology in 7-10 days. Chief Complaint/HPI Chief Complaint/HPI This is a 57 yo female who presented to the ER with c/o of 2 day history of SOA. Denies cough, fever or any other symptoms. Pt was noted in the ER to have a slightly elevated troponin and an elevated d-dimer. Pt was admitted for further evaluation. VQ scan this am did not show evidence of PE. Pt has a previous hx of tricuspid valve vegetation and was transferred to in 2013. She reports she was in a nursing facility for sometime and received IV antibiotics. 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 Discharge Summary-Simple/Stand Consultations Discharge Physical Examination Allergies: Coded Allergies: nitrous oxide (Verified Allergy, Unknown, 06/08/07) Vitals & I&Os Vital Sign - Last 12Hours Date Time Temp Pulse Resp B/P (MAP) Pulse Ox O2 Delivery O2 Flow Rate FiO2 02/24/18 09:21 75 91 21 02/24/18 09:20 Room Air 02/24/18 08:30 96.4 16 148/86 (106) 02/23/18 00:00 2.00 Intake and Output 02/24/18 00:00 Intake Total 1780 ml Output Total 3400 ml Balance -1620 ml General Appearance: Alert, Oriented X3, Cooperative, No Acute Distress HEENT: Atraumatic, EOMI, Mucous Memb Moist/[place] Respiratory: Clear to Auscultation, Normal Air Movement Cardiovascular: Regular Rate, Normal S1, Normal S2, Other (moderate systolic murmur) Abdominal: Normal Bowel Sounds, Soft, No Tenderness Extremities: No Clubbing, No Cyanosis Skin: No Rashes, No Significant Lesion Neuro: Normal Speech, Normal Tone, Sensation Intact, Cranial Nerves 3-12 NL Psych/Mental Status: Mental Status NL, Mood NL Hospital Course See final discharge diagnosis. Radiology Reviewed Date of Exam: 02/20/18 CHEST 1 VIEW, AP/PA ONLY INDICATION: Shortness of breath. EXAMINATION: Portable chest at 9:15 p.m. FINDINGS: Heart size and pulmonary vascularity are normal. Lungs are clear. There are no effusions or pneumothoraces. IMPRESSION: Negative chest. Date of Exam: 02/21/18 LUNG SCAN PERFUSION INDICATION: Elevated d-dimer. Shortness of breath. CORRELATION STUDY: Chest 02/20/2018. Lung scan 04/06/2014. FINDINGS: Ventilation imaging utilizing DTPA was initiated; however, was unable to be completed owing to patient's inability to cooperate. 5.5 mCi of technetium-99m MAA utilized for perfusion imaging. Multiplanar imaging demonstrates no significant mismatched, peripherally based perfusion defect to suggest pulmonary embolism. IMPRESSION: 1. Unremarkable perfusion lung scan. No findings to suggest pulmonary embolism. Discharge Condition at discharge stable Instructions to patient/family Please see electronic discharge instructions given to patient. Discharge Medications Reviewed and agree with Discharge Medication list on patient's Discharge Instruction sheet Clinical Quality Measures DVT/VTE Risk/Contraindication: Risk Factor Score Per Nursin RFS Level Per Nursing on Admit: 2=Moderate Risk Score Comment: [employer] Copy Copies To 1: [facility]/ELMER GARCIA DO February 24, 2018 12:44
[2018-02-24] MEDS ORDERED: RT-ALBUINH IH (12:53)
[2018-02-24] MEDS ORDERED: METO-395 PO (12:53)
[2018-02-24] MEDS ORDERED: FURO-124 PO (12:53)
[2018-02-24] MEDS ORDERED: PHEN97.2 PO (12:53)
[2018-02-24] MEDS ORDERED: ACET-77 PO (12:53)
[2018-02-24] MEDS ORDERED: SPIR25TA3 PO (12:53)
[2018-02-24] MEDS ORDERED: MORP15TA PO (12:53)
[2018-02-24] MEDS ORDERED: LISI10TA2 PO (12:53)
--- NOTE | 2018-02-24 13:03 | Discharge Instructions ---
Discharge Inst-[facility] Discharge Medications New, Converted or Re-Newed RX: Other (transmitted to [facility], controlled rx on chart) New Medications: Albuterol Sulfate (Ventolin Hfa) 1 Puff Puff 2 PUFF IH Q4H PRN for DYSPNEA for 30 Days, #1 INHALER 1 PUFF = 90 MCG Furosemide (Lasix) 40 Mg Tablet 40 MG PO DAILY for 30 Days, #30 TAB Acetaminophen (Acetaminophen) 500 Mg Tablet 1000 MG PO Q6HR PRN for PAIN-MILD MDD 3000 grams for 30 Days, #90 TAB Lisinopril (Lisinopril) 10 Mg Tablet 10 MG PO DAILY for 30 Days, #30 TAB Metoprolol Succinate (Metoprolol Succinate) 100 Mg Tab.er.24h 100 MG PO DAILY for 30 Days, #30 TAB Morphine Sulfate (Morphine Sulfate) 15 Mg Tablet 15 MG PO Q6HR PRN for PAIN-SEVERE for 7 Days, #28 TAB Phenobarbital (Phenobarbital) 97.2 Mg Tablet 97.2 MG PO DAILY for 30 Days, #30 TAB Spironolactone (Spironolactone) 25 Mg Tablet 12.5 MG PO DAILY for 30 Days, #15 TAB Patient Instructions Patient Instructions -take medications as prescribed -keep follow up appt as directed -follow up with cardiology, Dr. Jenkins, in 7-10 days -follow up with [facility] for hospital discharge follow up, David Abdi APRN 02/25/18 at 1:40 pm Goal/Follow Up Appt: Cardiology, Dr. Jenkins in 7-10 days David Abdi APRN 02/25/18 at 1:40 PM Return to The Hospital For: chest pain or pressure, shortness of breath out of normal for patient, nausea or vomiting that makes you unable to keep down medications or clear liquids for more than 12 hours, fever unrelieved by tylenol or ibuprofen, if life vest discharges, if directed by vocational rehabilitation administrator provider, or with any other emergent complaints or concerns. Activity & Diet Discharge Diet: Cardiac Diet Activity as Tolerated: Yes Copy Copies To 1: [facility] Copies To 2: Paolo JENKINS MD, MARGARET E DO February 24, 2018 13:00
[2018-02-24] MEDS ORDERED: [UNRECOGNIZED DRUG - OTHER] (13:06)
[2018-02-24 16:30] VITALS: BP 152/88
== END 2018-02-24 12:55 | disposition home or self-care (01) ==
LOC: ER 20:45 → EDUNIT# 20:54 → UNDOADMOB 22:00 → ICU 22:00 → 4TH 02-23 17:10 → UNDODISOB 02-24 18:50
PROVIDERS: ADMIT Family Medicine; ATTEND Family Medicine
DX: I50.21 Acute systolic (congestive) heart failure (principal); I42.0 Dilated cardiomyopathy; I12.9 Hypertensive chronic kidney disease with stage 1 through stage 4 chronic kidney disease, or unspecified chronic kidney disease; I34.0 Nonrheumatic mitral (valve) insufficiency; I27.20 Pulmonary hypertension, unspecified; I25.10 Atherosclerotic heart disease of native coronary artery without angina pectoris; N18.9 Chronic kidney disease, unspecified; G40.909 Epilepsy, unspecified, not intractable, without status epilepticus; G89.29 Other chronic pain; Z79.899 Other long term (current) drug therapy
CPT/HCPCS: 36221; 36252; 36415; 71045; 80048; 80053; 80061; 80306; 81000; 83735; 83874; 83880; 84484; 85025; 85027; 85379; 86141; 93005; 93306; 93458; 94640; 94760; 96361; 96372; 96374

== ENCOUNTER 2018-05-14 13:54 | Inpatient (IN) | payer MEDICAID ==
[~2018-05-14] VITALS: Ht 160 cm; Wt 87.3 kg
[~2018-05-14 13:54] MED LIST changes: +ACET-77 PO; +FURO-124 PO; +LISI10TA2 PO; +METO-395 PO; +METO50TA15 PO; +MORP15TA PO; +MORP30TA PO; +PANT40TA2 PO; +SPIR25TA5 PO; +[UNRECOGNIZED DRUG - OTHER]
[2018-05-14 15:01] LABS: BASOPHILS % (AUTO) 0 % (0-10); EOSINOPHILS # (AUTO) 0.1 10^3/uL (0.0-0.3); EOSINOPHILS % (AUTO) 1 % (0-10); HEMATOCRIT 30 % (35-52); HEMOGLOBIN 10.2 G/DL (11.5-16.0); LYMPHOCYTES # (AUTO) 0.8 X 10^3 (1.0-4.0); LYMPHOCYTES % (AUTO) 7 % (12-44); MEAN CORPUSCULAR HEMOGLOBIN 31 PG (25-34); MEAN CORPUSCULAR HGB CONC 34 G/DL (32-36); MEAN CORPUSCULAR VOLUME 90 FL (80-99); MEAN PLATELET VOLUME 10.3 FL (7.4-10.4); MONOCYTES # (AUTO) 0.6 X 10^3 (0.0-1.0); MONOCYTES % (AUTO) 5 % (0-12); NEUTROPHILS # (AUTO) 10.4 X 10^3 (1.8-7.8); NEUTROPHILS % (AUTO) 87 % (42-75); PLATELET COUNT 345 10^3/uL (130-400); RED BLOOD COUNT 3.32 10^6/uL (4.35-5.85); RED CELL DISTRIBUTION WIDTH 15.1 % (10.0-14.5)
[2018-05-14 15:15] LABS: BAND NEUTROPHILS 0 %; BASOPHILS % (MANUAL) 0 %; EOSINOPHILS % (MANUAL) 0 %; LYMPHOCYTES % (MANUAL) 10 %; MONOCYTES % (MANUAL) 2 %; NEUTROPHILS % (MANUAL) 88 %; RBC MORPH NORMAL
[2018-05-14 15:22] LABS: ALANINE AMINOTRANSFERASE 28 U/L (0-55); ALKALINE PHOSPHATASE 93 U/L (40-136); AMMONIA 40 UMOL/L (11-32); BILIRUBIN,TOTAL 0.4 MG/DL (0.1-1.0); BUN/CREATININE RATIO 16; CALCIUM 8.7 MG/DL (8.5-10.1); CARBON DIOXIDE 22 MMOL/L (21-32); CHLORIDE 87 MMOL/L (98-107); GFR ESTIMATED 12; GLUCOSE 115 MG/DL (70-105); SALICYLATE < 5.0 MG/DL (5.0-20.0); TOTAL PROTEIN 7.1 GM/DL (6.4-8.2)
[2018-05-14 15:25] LABS: AMORPHOUS SEDIMENT,UR MOD AMOR URATES /LPF; AMPHETAMINE SCREEN, URINE NEGATIVE (NEGATIVE); BACTERIA,URINE NEGATIVE /HPF; BARBITURATE SCREEN URINE POSITIVE (NEGATIVE); BENZODIAZEPINES SCREEN URINE NEGATIVE (NEGATIVE); BILIRUBIN,URINE 2+ (NEGATIVE); CANNABINOID SCREEN, URINE NEGATIVE (NEGATIVE); CLARITY,URINE VERY CLOUDY; COCAINE SCREEN URINE NEGATIVE (NEGATIVE); COLOR,URINE YELLOW; GLUCOSE, URINE (UA) NEGATIVE (NEGATIVE); KETONES,URINE 1+ (NEGATIVE); LEUKOCYTE ESTERASE ,URINE 3+ (NEGATIVE); METHADONE STAT NEGATIVE (NEGATIVE); METHAMPHETAMINE SCREEN URINE S NEGATIVE (NEGATIVE); NITRITE,URINE NEGATIVE (NEGATIVE); OPIATE SCREEN URINE POSITIVE (NEGATIVE); OXYCODONE STAT NEGATIVE (NEGATIVE); PH,URINE 5 (5-9); PROPOXYPHENE STAT NEGATIVE (NEGATIVE); PROTEIN,URINE 3+ (NEGATIVE); SQUAMOUS EPITHELIAL CELL,UR 0-2 /HPF; TRICYCLIC ANTIDEPRESSANTS SCRE NEGATIVE (NEGATIVE); UROBILINOGEN,URINE 1 MG/DL (NORMAL); WBC,URINE 50-100 /HPF
[2018-05-14 15:28] LABS: ACETAMINOPHEN < 10 UG/ML (10-30); SODIUM 124 MMOL/L (135-145)
[2018-05-14] MEDS ORDERED: LANS15TA10 PO (15:50)
--- NOTE | 2018-05-14 15:55 | ED Psychosocial ---
General Chief Complaint: Substance Abuse Stated Complaint: NEEDS DETOX Nursing Triage Note: PT DISCHARGED FROM [facility], ON NEW ANTIPSYCHOTIC MEDICATIONS, FRIENDS BROUGHT THE PATIENT IN VIA WHEELCHAIR TODAY AFTER FINDING PATIENT VERY DELERIOUS AND UNABLE TO REMAIN ALERT. Source: patient Exam Limitations: no limitations History of Present Illness Date Seen by Provider: May 14, 2018 Time Seen by Provider: 15:49 Initial Comments The patient is a 57-year-old white female known to me over some 30 years or more. She was sent out by Nabil Abdi nurse practitioner at [facility] after he found her to be very altered. She apparently was on a group of new antipsychotic drugs. He had stated that this began while she was in [facility]. She was started on a number of antipsychotics and ultimately sent back to a rehabilitation facility in [place]. She had just gotten out of there and her caregivers reported that she was steadily declining in her alertness and abilities to perform daily living activities. She is snoring and deeply somnolent during my visit. Mr. Abdi reported that she was exhibiting movements at [facility] it suggested tar dive dyskinesia. Allergies and Home Medications Allergies Coded Allergies: nitrous oxide (Verified Allergy, Unknown, 06/08/07) Home Medications Acetaminophen 500 Mg Tablet, 1,000 MG PO Q6HR PRN for PAIN-MILD Prescribed by: ELMER ROBBINS on 02/24/18 1253 Albuterol Sulfate 1 Puff Puff, 2 PUFF IH Q4H PRN for DYSPNEA 1 PUFF = 90 MCG Prescribed by: ELMER ROBBINS on 02/24/18 1253 Furosemide 40 Mg Tablet, 40 MG PO DAILY Prescribed by: ELMER ROBBINS on 02/24/18 1253 Lisinopril 10 Mg Tablet, 10 MG PO DAILY Prescribed by: ELMER ROBBINS on 02/24/18 1253 Metoprolol Succinate 100 Mg Tab.er.24h, 100 MG PO DAILY Prescribed by: ELMER ROBBINS on 02/24/18 1253 Morphine Sulfate 15 Mg Tablet, 15 MG PO Q6HR PRN for PAIN-SEVERE Prescribed by: ELMER ROBBINS on 02/24/18 1253 Phenobarbital 97.2 Mg Tablet, 97.2 MG PO DAILY Prescribed by: ELMER ROBBINS on 02/24/18 1253 Spironolactone 25 Mg Tablet, 12.5 MG PO DAILY Prescribed by: ELMER ROBBINS on 02/24/18 1253 Patient Home Medication List Home Medication List Reviewed: Yes (Well Benadryl And produced several by the appointment is if they got 70mmHg given a Tylenol wave then given their understanding) ROS-Unable to Obtain: the patient was snoring and unable to give any history Constitutional: see HPI Past Hbyllmw-Yjfmqk-Uvbzst Hx Patient Social History Recreational Drug Use: Yes Drug of Choice: denies 2nd Hand Smoke Exposure: Yes Recent Foreign Travel: No Contact w/Someone Who Travel: No Recent Infectious Disease Expo: No Recent Hopitalizations: No Physical Abuse: No Sexual Abuse: No Mistreated: No Immunizations Up To Date Tetanus Booster (TDap): Less than 5yrs PED Vaccines UTD: No Date of Pneumonia Vaccine: Jul 13, 2012 Date of Influenza Vaccine: Aug 17, 2014 Seasonal Allergies Seasonal Allergies: No Past Medical History Surgeries: Yes (hernia repair, T&A, hysterectomy, bladder suspension, multi to left leg, ) Abdominal, Appendectomy, Bladder Surgery, Section, Hysterectomy, Orthopedic, Tonsillectomy Respiratory: Yes (SUPPOSED TO WEAR O2 AT HS AT 2 1/2-3L AT HS AND PRN) Asthma, Pneumonia, Chronic Bronchitis, COPD, Emphysema Currently Using CPAP: No Currently Using BIPAP: No Cardiac: Yes Cardiomyopathy, Coronary Artery Disease, Endocarditis, Heart Attack, Hypertension, Peripheral Vascular Neurological: Yes (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; CVA LEFT SIDE WEAKNESS, POOR BALANCE/USES WALKER) Seizure Disorder, Traumatic Brain Injury : No 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 Disorders: No Female 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 Sexually Transmitted Disease: No HIV/AIDS: No Kidney Infection, Bladder Infection, Kidney Stones, Renal Failure, UTI-Chronic Gastrointestinal: Yes (CHRONIC ABDOMINAL PAIN COMPLAINT; GASTRITIS; HEPATITIS C ) Abdominal Hernia, Gastroesophageal Reflux, Pancreatitis, Hepatitis, Irritable Bowel Musculoskeletal: Yes Arthritis, Chronic Back Pain Endocrine: No HEENT: No Loss of Vision: Denies Hearing Impairment: Denies Cancer: Yes Cervical Psychosocial: Yes (SUBSTANCE ABUSE) Anxiety, PTSD Nursing Suicide Risk Score: 0 Integumentary: No Blood Disorders: Yes (ANEMIA) Adverse Reaction/Blood Tranf: No Family Medical History Abdominal aortic aneurysm 03 FATHER Alcoholism 03 FATHER 03 MOTHER 09 SISTER 09 SISTER Cancer 03 FATHER Cataract 03 FATHER 03 MOTHER Chest pain 03 MOTHER Family history: Diabetes mellitus 03 MOTHER Family history: Hypertension 03 MOTHER Family history: Thyroid disorder 03 MOTHER Headache 09 SISTER Heart disease 03 MOTHER History of drug abuse 03 FATHER 09 SISTER Myocardial infarction 03 MOTHER No Family History of: [place]'s disease Aphasia Cancer of colon Congenital heart disease Congestive heart failure Cystic fibrosis Dementia Dysphagia Family history: Allergy Family history: Alzheimer's disease Family history: Arthritis Family history: Asthma Family history: Breast disease Family history: Cardiovascular disease Family history: Coronary thrombosis Family history: Gastrointestinal disease Family history: Glaucoma Family history: Osteoporosis Hearing loss Hereditary disease History of - anemia History of - disorder History of - respiratory disease Human immunodeficiency virus (HIV) seropositivity Hypercholesterolemia Infertile Kidney disease Malignant neoplasm of lung Parkinson's disease Prostate cancer Psychotic disorder Seizure disorder Stroke Tuberculosis Visual impairment No Pertinent Family Hx Physical Exam Vital Signs - First Documented 05/14/18 13:55 Temp 96.9 Pulse 87 Resp 16 B/P (MAP) 72/59 (63) Pulse Ox 92 O2 Delivery Room Air Capillary Refill : Less Than 3 Seconds Height, Weight, BMI Height: 5'3.00" Weight: 197lbs. 0.0oz. 89.260163ou; 32.5 BMI Method:Stated General Appearance: no apparent distress, other (minor withdrawal to noxious stimuli) HEENT: normal ENT inspection Neck: full range of motion Cardiovascular: other (sonorous snoring) Gastrointestinal: normal bowel sounds, non tender, soft, no organomegaly, no pulsatile mass Extremities: normal inspection Progress/Results/Core Measures Results/Orders Lab Results Laboratory Tests Test 05/14/18 14:49 05/14/18 15:07 Range/Units White Blood Count 12.0 H 4.3-11.0 10^3/uL Red Blood Count 3.32 L 4.35-5.85 10^6/uL Hemoglobin 10.2 L 11.5-16.0 G/DL Hematocrit 30 L 35-52 % Mean Corpuscular Volume 90 80-99 FL Mean Corpuscular Hemoglobin 31 25-34 PG Mean Corpuscular Hemoglobin Concent 34 32-36 G/DL Red Cell Distribution Width 15.1 H 10.0-14.5 % Platelet Count 345 130-400 10^3/uL Mean Platelet Volume 10.3 7.4-10.4 FL Neutrophils (%) (Auto) 87 H 42-75 % Lymphocytes (%) (Auto) 7 L 12-44 % Monocytes (%) (Auto) 5 0-12 % Eosinophils (%) (Auto) 1 0-10 % Basophils (%) (Auto) 0 0-10 % Neutrophils # (Auto) 10.4 H 1.8-7.8 X 10^3 Lymphocytes # (Auto) 0.8 L 1.0-4.0 X 10^3 Monocytes # (Auto) 0.6 0.0-1.0 X 10^3 Eosinophils # (Auto) 0.1 0.0-0.3 10^3/uL Basophils # (Auto) 0.0 0.0-0.1 10^3/uL Neutrophils % (Manual) 88 % Lymphocytes % (Manual) 10 % Monocytes % (Manual) 2 % Eosinophils % (Manual) 0 % Basophils % (Manual) 0 % Band Neutrophils 0 % Blood Morphology Comment NORMAL Sodium Level 124 *L 135-145 MMOL/L Potassium Level 5.0 3.6-5.0 MMOL/L Chloride Level 87 L 98-107 MMOL/L Carbon Dioxide Level 22 21-32 MMOL/L Anion Gap 15 H 5-14 MMOL/L Blood Urea Nitrogen 63 H 7-18 MG/DL Creatinine 4.00 H 0.60-1.30 MG/DL Estimat Glomerular Filtration Rate 12 BUN/Creatinine Ratio 16 Glucose Level 115 H 70-105 MG/DL Calcium Level 8.7 8.5-10.1 MG/DL Total Bilirubin 0.4 0.1-1.0 MG/DL Aspartate Amino Transf (AST/SGOT) 35 H 5-34 U/L Alanine Aminotransferase (ALT/SGPT) 28 0-55 U/L Alkaline Phosphatase 93 40-136 U/L Ammonia 40 H 11-32 UMOL/L Total Protein 7.1 6.4-8.2 GM/DL Albumin 4.0 3.2-4.5 GM/DL Salicylates Level < 5.0 L 5.0-20.0 MG/DL Acetaminophen Level < 10 L 10-30 UG/ML Serum Alcohol < 10 <10 MG/DL Urine Color YELLOW Urine Clarity VERY CLOUDY H Urine pH 5 5-9 Urine Specific [place] 1.020 1.016-1.022 Urine Protein 3+ H NEGATIVE Urine Glucose (UA) NEGATIVE NEGATIVE Urine Ketones 1+ H NEGATIVE Urine Nitrite NEGATIVE NEGATIVE Urine Bilirubin 2+ H NEGATIVE Urine Urobilinogen 1 NORMAL MG/DL Urine Leukocyte Esterase 3+ H NEGATIVE Urine RBC (Auto) 2+ H NEGATIVE Urine RBC 5-10 H /HPF Urine WBC 50-100 H /HPF Urine Squamous Epithelial Cells 0-2 /HPF Urine Crystals NONE /LPF Urine Amorphous Sediment MOD SABRA URATES H /LPF Urine Bacteria NEGATIVE /HPF Urine Casts NONE /LPF Urine Mucus NEGATIVE /LPF Urine Culture Indicated YES Urine Opiates Screen POSITIVE H NEGATIVE Urine Oxycodone Screen NEGATIVE NEGATIVE Urine Methadone Screen NEGATIVE NEGATIVE Urine Propoxyphene Screen NEGATIVE NEGATIVE Urine Barbiturates Screen POSITIVE H NEGATIVE Ur Tricyclic Antidepressants Screen NEGATIVE NEGATIVE Urine Phencyclidine Screen NEGATIVE NEGATIVE Urine Amphetamines Screen NEGATIVE NEGATIVE Urine Methamphetamines Screen NEGATIVE NEGATIVE Urine Benzodiazepines Screen NEGATIVE NEGATIVE Urine Cocaine Screen NEGATIVE NEGATIVE Urine Cannabinoids Screen NEGATIVE NEGATIVE My Orders Orders - MIESHA UPTON MD Acetaminophen (05/14/18 14:12) Alcohol (05/14/18 14:12) Ammonia (05/14/18 14:12) Cbc With Automated Diff (05/14/18 14:12) Comprehensive Metabolic Panel (05/14/18 14:12) Drug Screen Stat (Urine) (05/14/18 14:12) Salicylate (05/14/18 14:12) Ua Culture If Indicated (05/14/18 14:12) Manual Differential (05/14/18 14:49) Urine Culture (05/14/18 15:07) Ns Iv 1000 Ml (Sodium Chloride 0.9%) (05/14/18 16:30) Ceftriaxone Injection (Rocephin Injectio (05/14/18 16:30) Vital Signs/I&O 05/14/18 13:55 Temp 96.9 Pulse 87 Resp 16 B/P (MAP) 72/59 (63) Pulse Ox 92 O2 Delivery Room Air Blood Pressure Mean: 63 Departure Impression Primary Impression: altered mentation Additional Impressions: Renal failure urinary tract infection Disposition: ADMITTED INPATIENT Condition: Stable Admissions Decision to Admit Reason: Admit from ER (General) Decision to Admit/Date: May 14, 2018 Time/Decision to Admit Time: 15:55 Departure-Patient Inst. Referrals: [facility] (PCP/Family) Primary Care Physician Patient Instructions: ALCOHOL AND SUBSTANCE ABUSE MIESHA UPTON MD May 14, 2018 15:55
[2018-05-14] MEDS ORDERED: HYDR25TA4 PO (16:22)
[2018-05-14] MEDS ORDERED: GABA-488 PO (16:22)
[2018-05-14] MEDS ORDERED: cefTRIAXone INJECTION 1,000 MG in NS (IVPB) 50 ML IV ONE (16:30)
[2018-05-14] MEDS ORDERED: OLAN5TAB25 PO (16:57)
[2018-05-14] MEDS ORDERED: CARV25TA PO (16:57)
[2018-05-14] MEDS ORDERED: FURO20TA4 PO (16:57)
[2018-05-14] MEDS ORDERED: QUET25TA PO (16:57)
[2018-05-14] MEDS ORDERED: AMLO-335 PO (16:57)
[2018-05-14] MEDS ORDERED: HALO5TAB PO (16:57)
[2018-05-14] MEDS ORDERED: RIVA20TA PO (16:57)
[2018-05-14] MEDS ORDERED: OXCA600T PO (16:57)
[2018-05-14] MEDS ORDERED: LISI-552 PO (16:57)
[2018-05-14] MEDS: NS IV 1000 ML 1,000 ML IV SCH ×2 (17:22→21:30)
[2018-05-14 18:34] VITALS: BP 90/50
[2018-05-14 19:54] VITALS: BP 111/57
[2018-05-14 20:48] LABS: ABG BASE EXCESS -4.3 MMOL/L (-2.5-2.5); ABG OXYGEN SATURATION 93 % (94-100); ABG PCO2 49 MMHG (35-45); ABG PO2 71 MMHG (79-93)
[2018-05-14 20:50] LABS: ABG PH 7.27 (7.37-7.43); ALLENS TEST YES-POS; INSPIRED O2 5L; PATIENT TEMP 98.8; VENTILATOR NO
[2018-05-14 21:02] LABS: BASOPHILS % (AUTO) 0 % (0-10); EOSINOPHILS % (AUTO) 0 % (0-10); HEMATOCRIT 26 % (35-52); HEMOGLOBIN 9.2 G/DL (11.5-16.0); LYMPHOCYTES # (AUTO) 0.7 X 10^3 (1.0-4.0); LYMPHOCYTES % (AUTO) 6 % (12-44); MEAN CORPUSCULAR HEMOGLOBIN 33 PG (25-34); MEAN CORPUSCULAR HGB CONC 35 G/DL (32-36); MEAN CORPUSCULAR VOLUME 92 FL (80-99); MEAN PLATELET VOLUME 10.3 FL (7.4-10.4); MONOCYTES # (AUTO) 0.5 X 10^3 (0.0-1.0); MONOCYTES % (AUTO) 4 % (0-12); NEUTROPHILS # (AUTO) 10.3 X 10^3 (1.8-7.8); NEUTROPHILS % (AUTO) 90 % (42-75); PLATELET COUNT 200 10^3/uL (130-400); RED BLOOD COUNT 2.82 10^6/uL (4.35-5.85); RED CELL DISTRIBUTION WIDTH 14.8 % (10.0-14.5); WHITE BLOOD COUNT 11.5 10^3/uL (4.3-11.0)
[2018-05-14 21:20] LABS: ALBUMIN 3.8 GM/DL (3.2-4.5); BILIRUBIN,TOTAL 0.3 MG/DL (0.1-1.0); CALCIUM 8.1 MG/DL (8.5-10.1); CREATININE SERUM 3.83 MG/DL (0.60-1.30); MAGNESIUM 2.3 MG/DL (1.8-2.4); POTASSIUM 5.2 MMOL/L (3.6-5.0); TOTAL PROTEIN 6.7 GM/DL (6.4-8.2)
[2018-05-14 21:22] LABS: LYMPHOCYTES % (MANUAL) 7 %; MONOCYTES % (MANUAL) 4 %; NEUTROPHILS % (MANUAL) 89 %
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
[2018-05-14 22:00] VITALS: BP 92/58
--- NOTE | 2018-05-14 22:28 | Diagnostic Imaging Report ---
INDICATION: Distended abdomen. Concern for perforation. EXAMINATION: Abdomen, 05/14/2018. FINDINGS: A single supine portable view of the abdomen demonstrates markedly dilated small bowel loops throughout the abdomen. The stomach is also distended with debris and air. No significant air is seen within the left colon and no air is seen in the rectosigmoid. Findings highly suspicious for an obstructive process. On this single view, free air is difficult to exclude. Upright imaging of the upper abdomen would be recommended, otherwise CT could be performed to evaluate for free air. IMPRESSION: 1. Findings highly suspicious for a high-grade obstructive process. 2. Free air cannot be excluded on this examination alone. I would recommend CT imaging of the abdomen and pelvis given the questionable abnormal lucent area in the right upper quadrant on the separate chest radiograph. This was discussed with the clinician by Dr. Saucedo 05/14/2018 at 10:20 PM Edited by akbar. Dictated by: Dictated on workstation # [id number]
--- NOTE | 2018-05-14 22:30 | Diagnostic Imaging Report ---
INDICATION: Distended abdomen. Unresponsive EXAMINATION: Chest 05/14/2018 COMPARISON: 02/20/2018 FINDINGS AND IMPRESSION: Heart is prominent. There is pulmonary vascular congestion with findings of edema throughout both lungs. No pneumothorax. No significant effusions are seen. Deformity right clavicle consistent with an old fracture. The stomach appears diffusely distended with air. Dilated small bowel loops seen in the abdomen. There is a vague lucency noted in the right upper quadrant but below the liver of uncertain etiology and a small amount of free air in that region is difficult to completely exclude. Air immediately beneath the left hemidiaphragm most likely in the dilated stomach but given history CT imaging would be recommended to better exclude possible free air. Findings called to Dr. Arriaga by Dr. Saucedo 05/14/2018 at 10:10 PM Dictated by: Dictated on workstation # [id number]
[2018-05-14 23:00] VITALS: BP 99/73
--- NOTE | 2018-05-14 23:58 | Consultation ---
History of Present Illness History of Present Illness Patient Consulted On(jasper/time) 05/14/18 23:52 Time Seen by Provider: 23:01 History of Present Illness Surgery asked to consult regarding rigid abdomen and venous insufficiency. HPI per ED and IM: Report taken from Dr. Walker in ED. Pt presented to ED with AMS from [facility]. The pt was being seen by Nabil Jin there. He felt she seemed significantly altered. She had also reportedly just started on a new regimen of antipsychotics and her caregivers felt her alertness levels and ability to perform activities of daily living were steadily declining. Nabil Abdi also felt he noticed during his exam at [facility] some movements suggestive of tardive dyskinesia. By the time she arrived to the ED she was snoring and deeply somnolent. She had a creatinine of 4 and Na of 124 on admission to Med/Surg unit. When I saw pt she couldn't really answer questions, did complain of some abdominal pain but mostly just moaning. Allergies and Home Medications Allergies Coded Allergies: nitrous oxide (Verified Allergy, Unknown, 06/08/07) Home Medications Acetaminophen 500 Mg Tablet, 1,000 MG PO Q6HR PRN for PAIN-MILD Prescribed by: ELMER ROBBINS on 02/24/18 1253 Albuterol Sulfate 1 Puff Puff, 2 PUFF IH Q4H PRN for DYSPNEA 1 PUFF = 90 MCG Prescribed by: ELMER ROBBINS on 02/24/18 1253 Amlodipine/Atorvastatin 1 Each Tablet, 1 EACH PO HS, (Reported) Carvedilol 25 Mg Tablet, 25 MG PO BID, (Reported) Furosemide 40 Mg Tablet, 40 MG PO DAILY Prescribed by: ELMER ROBBINS on 02/24/18 1253 Lisinopril 10 Mg Tablet, 10 MG PO DAILY Prescribed by: ELMER ROBBINS on 02/24/18 1253 Lisinopril 20 Mg Tablet, 20 MG PO DAILY, (Reported) Metoprolol Succinate 100 Mg Tab.er.24h, 100 MG PO DAILY Prescribed by: ELMER ROBBINS on 02/24/18 1253 Morphine Sulfate 15 Mg Tablet, 15 MG PO Q6HR PRN for PAIN-SEVERE Prescribed by: ELMER ROBBINS on 02/24/18 1253 Phenobarbital 97.2 Mg Tablet, 97.2 MG PO DAILY Prescribed by: ELMER ROBBINS on 02/24/18 1253 Rivaroxaban 20 Mg Tablet, 20 MG PO DAILY, (Reported) Spironolactone 25 Mg Tablet, 12.5 MG PO DAILY Prescribed by: ELMER ROBBINS on 02/24/18 1253 Patient Home Medication List Home Medication List Reviewed: Yes Past Uttfbqt-Ucknsb-Lahocl Hx Patient Social History Recreational Drug Use: Yes Drug of Choice: denies 2nd Hand Smoke Exposure: Yes Recent Foreign Travel: No Contact w/Someone Who Travel: No Recent Infectious Disease Expo: No Recent Hopitalizations: No Immunizations Up To Date Tetanus Booster (TDap): Less than 5yrs PED Vaccines UTD: No Date of Pneumonia Vaccine: Jul 13, 2012 Date of Influenza Vaccine: Aug 17, 2014 Seasonal Allergies Seasonal Allergies: No Surgeries History of Surgeries: Yes (hernia repair, T&A, hysterectomy, bladder suspension , multi to left leg, ) Surgeries: Abdominal, Appendectomy, Bladder Surgery, Section, Hysterectomy, Orthopedic, Tonsillectomy Respiratory History of Respiratory Disorde: Yes (SUPPOSED TO WEAR O2 AT HS AT 2 1/2-3L AT HS AND PRN) Respiratory Disorders: Asthma, Pneumonia, Chronic Bronchitis, COPD, Emphysema Cardiovascular History of Cardiac Disorders: Yes Cardiac Disorders: Cardiomyopathy, Coronary Artery Disease, Endocarditis, Heart Attack, Hypertension, Peripheral Vascular Neurological History of Neurological Disord: Yes (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; CVA LEFT SIDE WEAKNESS, POOR BALANCE/USES WALKER) Neurological Disorders: Seizure Disorder, Traumatic Brain Injury 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 System : No Hx 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 Disorders: No Sexually Transmitted Disease: No HIV/AIDS: No 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 Genitourinary Genitourinary Disorders: Kidney Infection, Bladder Infection, Kidney Stones, Renal Failure, UTI-Chronic Gastrointestinal History of Gastrointestinal Di: Yes (CHRONIC ABDOMINAL PAIN COMPLAINT; GASTRITIS; HEPATITIS C) Gastrointestinal Disorders: Abdominal Hernia, Gastroesophageal Reflux, Pancreatitis, Hepatitis, Irritable Bowel Musculoskeletal History of Musculoskeletal Dis: Yes Musculoskeletal Disorders: Arthritis, Chronic Back Pain Endocrine History of Endocrine Disorders: No HEENT History of HEENT Disorders: No Loss of Vision: Denies Hearing Impairment: Denies Cancer History of Cancer: Yes Cancer: Cervical Psychosocial History of Psychiatric Problem: Yes (SUBSTANCE ABUSE) Behavioral Health Disorders: Anxiety, PTSD Integumentary History of Skin or Integumenta: No Blood Transfusions History of Blood Disorders: Yes (ANEMIA) Adverse Reaction to a Blood Tr: No Family Medical History Significant Family History: Diabetes (mother) Family Medial History: Abdominal aortic aneurysm 03 FATHER Alcoholism 03 FATHER 03 MOTHER 09 SISTER 09 SISTER Cancer 03 FATHER Cataract 03 FATHER 03 MOTHER Chest pain 03 MOTHER Family history: Diabetes mellitus 03 MOTHER Family history: Hypertension 03 MOTHER Family history: Thyroid disorder 03 MOTHER Headache 09 SISTER Heart disease 03 MOTHER History of drug abuse 03 FATHER 09 SISTER Myocardial infarction 03 MOTHER No Family History of: [place]'s disease Aphasia Cancer of colon Congenital heart disease Congestive heart failure Cystic fibrosis Dementia Dysphagia Family history: Allergy Family history: Alzheimer's disease Family history: Arthritis Family history: Asthma Family history: Breast disease Family history: Cardiovascular disease Family history: Coronary thrombosis Family history: Gastrointestinal disease Family history: Glaucoma Family history: Osteoporosis Hearing loss Hereditary disease History of - anemia History of - disorder History of - respiratory disease Human immunodeficiency virus (HIV) seropositivity Hypercholesterolemia Infertile Kidney disease Malignant neoplasm of lung Parkinson's disease Prostate cancer Psychotic disorder Seizure disorder Stroke Tuberculosis Visual impairment Review of Systems-General ROS-Unable to Obtain: pt not answering questions Physical Exam-General Problems Physical Exam Vital Signs Vital Signs - First Documented 05/14/18 05/14/18 13:55 18:14 Temp 96.9 Pulse 87 Resp 16 B/P (MAP) 72/59 (63) Pulse Ox 92 O2 Delivery Room Air O2 Flow Rate 97.00 Capillary Refill : Less Than 3 Seconds General Appearance: severe distress, obese Eyes: Bilateral Eye PERRL, Bilateral Eye EOMI HEENT: pharynx normal; No scleral icterus (R), No scleral icterus (L), No pale conjunctivae (R), No pale conjunctivae (L) Neck: limited range of motion; No thyromegaly Respiratory: chest non-tender, no respiratory distress, decreased breath sounds , accessory muscle use, wheezing (diffusely) Cardiovascular: regular rate, rhythm, no murmur Gastrointestinal: no organomegaly, no pulsatile mass, abnormal bowel sounds, distended, guarding, rebound, tenderness Rectal: deferred Back: no CVA tenderness, no vertebral tenderness Extremities: no calf tenderness, pedal edema (+3), other (erythema and cellulitis bilaterally) Neurologic/Psychiatric: No facial droop; depressed affect, other (pt moaning not answering, unable to assess) Skin: diaphoresis, damp; No ecchymosis, No mottled Lymphatic: no adenopathy (neck, axilla or groin) Data Review Labs Laboratory Tests 05/14/18 14:49: White Blood Count 12.0H, Red Blood Count 3.32L, Hemoglobin 10.2L, Hematocrit 30L , Mean Corpuscular Volume 90, Mean Corpuscular Hemoglobin 31, Mean Corpuscular Hemoglobin Concent 34, Red Cell Distribution Width 15.1H, Platelet Count 345, Mean Platelet Volume 10.3, Neutrophils (%) (Auto) 87H, Lymphocytes (%) (Auto) 7L , Monocytes (%) (Auto) 5, Eosinophils (%) (Auto) 1, Basophils (%) (Auto) 0, Neutrophils # (Auto) 10.4H, Lymphocytes # (Auto) 0.8L, Monocytes # (Auto) 0.6, Eosinophils # (Auto) 0.1, Basophils # (Auto) 0.0, Neutrophils % (Manual) 88, Lymphocytes % (Manual) 10, Monocytes % (Manual) 2, Eosinophils % (Manual) 0, Basophils % (Manual) 0, Band Neutrophils 0, Blood Morphology Comment NORMAL, Sodium Level 124*L, Potassium Level 5.0, Chloride Level 87L, Carbon Dioxide Level 22, Anion Gap 15H, Blood Urea Nitrogen 63H, Creatinine 4.00H, Estimat Glomerular Filtration Rate 12, BUN/Creatinine Ratio 16, Glucose Level 115H, Calcium Level 8.7, Total Bilirubin 0.4, Aspartate Amino Transf (AST/SGOT) 35H, Alanine Aminotransferase (ALT/SGPT) 28, Alkaline Phosphatase 93, Ammonia 40H, Total Protein 7.1, Albumin 4.0, Salicylates Level < 5.0L, Acetaminophen Level < 10L, Serum Alcohol < 10 05/14/18 15:07: Urine Color YELLOW, Urine Clarity VERY CLOUDYH, Urine pH 5, Urine Specific [place] 1.020, Urine Protein 3+H, Urine Glucose (UA) NEGATIVE, Urine Ketones 1+H , Urine Nitrite NEGATIVE, Urine Bilirubin 2+H, Urine Urobilinogen 1, Urine Leukocyte Esterase 3+H, Urine RBC (Auto) 2+H, Urine RBC 5-10H, Urine WBC 50-100H , Urine Squamous Epithelial Cells 0-2, Urine Crystals NONE, Urine Amorphous Sediment MOD SABRA URATESH, Urine Bacteria NEGATIVE, Urine Casts NONE, Urine Mucus NEGATIVE, Urine Culture Indicated YES, Urine Opiates Screen POSITIVEH, Urine Oxycodone Screen NEGATIVE, Urine Methadone Screen NEGATIVE, Urine Propoxyphene Screen NEGATIVE, Urine Barbiturates Screen POSITIVEH, Ur Tricyclic Antidepressants Screen NEGATIVE, Urine Phencyclidine Screen NEGATIVE, Urine Amphetamines Screen NEGATIVE, Urine Methamphetamines Screen NEGATIVE, Urine Benzodiazepines Screen NEGATIVE, Urine Cocaine Screen NEGATIVE, Urine Cannabinoids Screen NEGATIVE 05/14/18 20:40: Blood Gas Puncture Site RT RAD, Blood Gas Patient Temperature 98.8, Arterial Blood pH 7.27*L, Arterial Blood Partial Pressure CO2 49H, Arterial Blood Partial Pressure O2 71L, Arterial Blood HCO3 22L, Arterial Blood Total CO2 23.0 , Arterial Blood Oxygen Saturation 93L, Arterial Blood Base Excess -4.3L, Dominguez Test YES-POS, Blood Gas Ventilator Setting NO, Blood Gas Inspired Oxygen 5L 05/14/18 20:50: White Blood Count 11.5H, Red Blood Count 2.82L, Hemoglobin 9.2L, Hematocrit 26L , Mean Corpuscular Volume 92, Mean Corpuscular Hemoglobin 33, Mean Corpuscular Hemoglobin Concent 35, Red Cell Distribution Width 14.8H, Platelet Count 200, Mean Platelet Volume 10.3, Neutrophils (%) (Auto) 90H, Lymphocytes (%) (Auto) 6L , Monocytes (%) (Auto) 4, Eosinophils (%) (Auto) 0, Basophils (%) (Auto) 0, Neutrophils # (Auto) 10.3H, Lymphocytes # (Auto) 0.7L, Monocytes # (Auto) 0.5, Eosinophils # (Auto) 0.0, Basophils # (Auto) 0.0, Neutrophils % (Manual) 89, Lymphocytes % (Manual) 7, Monocytes % (Manual) 4, Sodium Level 125*L, Potassium Level 5.2H, Chloride Level 90L, Carbon Dioxide Level 19L, Anion Gap 16H, Blood Urea Nitrogen 64H, Creatinine 3.83H, Estimat Glomerular Filtration Rate 12, BUN/ Creatinine Ratio 17, Glucose Level 106H, Calcium Level 8.1L, Total Bilirubin 0.3 , Aspartate Amino Transf (AST/SGOT) 33, Alanine Aminotransferase (ALT/SGPT) 27, Alkaline Phosphatase 87, Total Protein 6.7, Albumin 3.8, Magnesium Level 2.3 Microbiology 05/14/18 Urine Culture - Preliminary, Resulted Sent To [facility] Assessment/Plan Assessment/Plan Assessment/Plan Acute Abdomen Venous Insufficiency Hyponatremia Acute on Chronic Renal Failure Sepsis AMS B/L LE cellulitis Watery Diarrhea Pt was admitted for altered mental status and hyponatremia thought to be due to change in Psych meds and polydypsia. However, pt decompensated on the floor and was transferred to ICU. She has very bad veins and needed access, central line placed in RIJ with US guidance. Pt will be sent down for a CT abd/pelvis; rule out obstruction, ischemic bowel or other causes or acute abd. She will be started on IV ABX, fluids now that IV is in place. Hold free water. Stool cultures for C. Diff and other enteric organisms. [place] [facility]. Will monitor legs to sure cellulitis is not getting worse and may need US to determine if I&D needed (not at this time no fluctuance in LE, just edema and erythma). DHEERAJ RAIN DO May 14, 2018 23:58
[2018-05-15] VITALS (15 sets, daily range): BP systolic 93–115; BP diastolic 47–88
--- NOTE | 2018-05-15 00:08 | Progress Note-Post Operative ---
Post-Operative Progess Note Surgeon (s)/Fiber Product Cutting Machine Operator (s) Surgeon DHEERAJ RAIN DO Fiber Product Cutting Machine Operator: none Pre-Operative Diagnosis Venous Insufficiency, Hyponatremia, AMS, R/O acute abdomen, Sepsis Post-Operative Diagnosis Same Procedure & Operative Findings Date of Procedure 05/15/18 Procedure Performed/Findings Insertion RIJ with US guidance Anesthesia Type Local lidocaine Estimated Blood Loss Estimated blood loss (mL): less than 10ml Specimens/Packing Specimens Removed none DHEERAJ RAIN DO May 15, 2018 00:08
[2018-05-15] MEDS: VANCOMYCIN INJECTION 0.1 MG in NS (IVPB) 250 ML IV SCH ×3 (01:12→01:17)
[2018-05-15] MEDS: NS IV 1000 ML 1,000 ML IV SCH ×3 (02:33→10:00)
[2018-05-15 03:29] LABS: BASOPHILS % (AUTO) 0 % (0-10); EOSINOPHILS # (AUTO) 0.1 10^3/uL (0.0-0.3); EOSINOPHILS % (AUTO) 1 % (0-10); HEMATOCRIT 26 % (35-52); LYMPHOCYTES # (AUTO) 0.7 X 10^3 (1.0-4.0); LYMPHOCYTES % (AUTO) 7 % (12-44); MEAN CORPUSCULAR HEMOGLOBIN 31 PG (25-34); MEAN CORPUSCULAR HGB CONC 34 G/DL (32-36); MEAN CORPUSCULAR VOLUME 91 FL (80-99); MEAN PLATELET VOLUME 10.1 FL (7.4-10.4); MONOCYTES # (AUTO) 0.4 X 10^3 (0.0-1.0); MONOCYTES % (AUTO) 5 % (0-12); NEUTROPHILS # (AUTO) 7.9 X 10^3 (1.8-7.8); NEUTROPHILS % (AUTO) 87 % (42-75); PLATELET COUNT 277 10^3/uL (130-400); RED BLOOD COUNT 2.87 10^6/uL (4.35-5.85); RED CELL DISTRIBUTION WIDTH 14.9 % (10.0-14.5); WHITE BLOOD COUNT 9.1 10^3/uL (4.3-11.0)
[2018-05-15 03:47] LABS: CALCIUM 7.5 MG/DL (8.5-10.1); CREATININE SERUM 3.66 MG/DL (0.60-1.30); MAGNESIUM 2.3 MG/DL (1.8-2.4); PHOSPHORUS 7.4 MG/DL (2.3-4.7); POTASSIUM 4.3 MMOL/L (3.6-5.0)
[2018-05-15] MEDS ORDERED: MAGNESIUM 1 GM/100 ML IVPB 100 ML IV SCH (06:00)
[2018-05-15] MEDS ORDERED: POTASSIUM CL 10MEQ/50ML IVPB 50 ML IV SCH (06:00)
[2018-05-15] MEDS ORDERED: KCL 20 MEQ TAB (K-DUR) PO SCH (06:00)
[2018-05-15] MEDS ORDERED: NS IV 1000 ML 1,000 ML IV SCH (08:45)
--- NOTE | 2018-05-15 08:54 | Progress Note ---
Subjective Time Seen by Provider: 08:41 Subjective/Events-last exam Pt seen and examined, no real changes from last night; except she now is hypothermic. Still moaning (possibly due to pain) not really answering questions yet. Had NGT placed but they only got out 150cc. Review of Systems General: Chills, Fatigue, Malaise Gastrointestinal: No: Vomiting Neurological: Change in speech unable to obtain because pt does not answer questions Focused Exam Lactate Level 05/14/18 23:55: Lactic Acid Level 0.97 Objective Exam Vital Signs Date Time Temp Pulse Resp B/P (MAP) Pulse Ox O2 Delivery O2 Flow Rate FiO2 05/15/18 08:01 93.8 5.00 05/15/18 08:00 62 9 93/60 (71) 100 Nasal Cannula 5.00 05/15/18 07:00 65 9 93/54 (67) 99 Nasal Cannula 5.00 05/15/18 07:00 65 05/15/18 06:00 66 8 95/60 (72) 100 Nasal Cannula 5.00 05/15/18 05:00 69 10 94/49 (64) 100 Nasal Cannula 5.00 05/15/18 04:00 74 15 98/47 (64) 100 Nasal Cannula 5.00 05/15/18 04:00 98.8 05/15/18 04:00 Nasal Cannula 5.00 05/15/18 04:00 74 15 98/49 (65) 100 Nasal Cannula 5.00 05/15/18 03:00 77 16 96/58 (71) 100 Nasal Cannula 5.00 05/15/18 02:00 81 9 103/82 (89) 100 Nasal Cannula 5.00 05/15/18 01:00 85 05/15/18 01:00 91 10 93/84 (87) 99 Nasal Cannula 5.00 05/15/18 00:00 Nasal Cannula 5.00 05/15/18 00:00 81 10 115/88 (97) 99 Nasal Cannula 5.00 05/14/18 23:00 84 13 99/73 (82) 99 Nasal Cannula 5.00 05/14/18 22:00 84 9 92/58 (69) 100 Nasal Cannula 5.00 05/14/18 21:30 97.9 Nasal Cannula 5.00 05/14/18 21:10 87 8/2/18 20:15 Nasal Cannula 5.00 05/14/18 19:54 98.4 83 20 111/57 (75) 95 Nasal Cannula 5.00 05/14/18 18:34 98.4 77 20 90/50 (63) 99 Nasal Cannula 5.00 05/14/18 18:14 98.5 81 18 110/76 97 97.00 05/14/18 13:55 96.9 87 16 72/59 (63) 92 Room Air I & O 05/15/18 07:00 Intake Total 0 ml Output Total 570 ml Balance -570 ml Capillary Refill : Less Than 3 Seconds General Appearance: Chronically ill, Moderate Distress HEENT: PERRL/EOMI; No Scleral Icterus (L), No Scleral Icterus (R) Respiratory: No Respiratory Distress, Decreased Breath Sounds, Wheezing Cardiovascular: Regular Rate, Rhythm, No Murmur Gastrointestinal: no organomegaly, no pulsatile mass, abnormal bowel sounds, distended, guarding, rebound, tenderness Skin: Cool Results Lab Laboratory Tests 05/14/18 14:49: White Blood Count 12.0H, Red Blood Count 3.32L, Hemoglobin 10.2L, Hematocrit 30L , Mean Corpuscular Volume 90, Mean Corpuscular Hemoglobin 31, Mean Corpuscular Hemoglobin Concent 34, Red Cell Distribution Width 15.1H, Platelet Count 345, Mean Platelet Volume 10.3, Neutrophils (%) (Auto) 87H, Lymphocytes (%) (Auto) 7L , Monocytes (%) (Auto) 5, Eosinophils (%) (Auto) 1, Basophils (%) (Auto) 0, Neutrophils # (Auto) 10.4H, Lymphocytes # (Auto) 0.8L, Monocytes # (Auto) 0.6, Eosinophils # (Auto) 0.1, Basophils # (Auto) 0.0, Neutrophils % (Manual) 88, Lymphocytes % (Manual) 10, Monocytes % (Manual) 2, Eosinophils % (Manual) 0, Basophils % (Manual) 0, Band Neutrophils 0, Blood Morphology Comment NORMAL, Sodium Level 124*L, Potassium Level 5.0, Chloride Level 87L, Carbon Dioxide Level 22, Anion Gap 15H, Blood Urea Nitrogen 63H, Creatinine 4.00H, Estimat Glomerular Filtration Rate 12, BUN/Creatinine Ratio 16, Glucose Level 115H, Calcium Level 8.7, Total Bilirubin 0.4, Aspartate Amino Transf (AST/SGOT) 35H, Alanine Aminotransferase (ALT/SGPT) 28, Alkaline Phosphatase 93, Ammonia 40H, Total Protein 7.1, Albumin 4.0, Salicylates Level < 5.0L, Acetaminophen Level < 10L, Serum Alcohol < 10 05/14/18 15:07: Urine Color YELLOW, Urine Clarity VERY CLOUDYH, Urine pH 5, Urine Specific [place] 1.020, Urine Protein 3+H, Urine Glucose (UA) NEGATIVE, Urine Ketones 1+H , Urine Nitrite NEGATIVE, Urine Bilirubin 2+H, Urine Urobilinogen 1, Urine Leukocyte Esterase 3+H, Urine RBC (Auto) 2+H, Urine RBC 5-10H, Urine WBC 50-100H , Urine Squamous Epithelial Cells 0-2, Urine Crystals NONE, Urine Amorphous Sediment MOD SABRA URATESH, Urine Bacteria NEGATIVE, Urine Casts NONE, Urine Mucus NEGATIVE, Urine Culture Indicated YES, Urine Opiates Screen POSITIVEH, Urine Oxycodone Screen NEGATIVE, Urine Methadone Screen NEGATIVE, Urine Propoxyphene Screen NEGATIVE, Urine Barbiturates Screen POSITIVEH, Ur Tricyclic Antidepressants Screen NEGATIVE, Urine Phencyclidine Screen NEGATIVE, Urine Amphetamines Screen NEGATIVE, Urine Methamphetamines Screen NEGATIVE, Urine Benzodiazepines Screen NEGATIVE, Urine Cocaine Screen NEGATIVE, Urine Cannabinoids Screen NEGATIVE 05/14/18 20:40: Blood Gas Puncture Site RT RAD, Blood Gas Patient Temperature 98.8, Arterial Blood pH 7.27*L, Arterial Blood Partial Pressure CO2 49H, Arterial Blood Partial Pressure O2 71L, Arterial Blood HCO3 22L, Arterial Blood Total CO2 23.0 , Arterial Blood Oxygen Saturation 93L, Arterial Blood Base Excess -4.3L, Dominguez Test YES-POS, Blood Gas Ventilator Setting NO, Blood Gas Inspired Oxygen 5L 05/14/18 20:50: White Blood Count 11.5H, Red Blood Count 2.82L, Hemoglobin 9.2L, Hematocrit 26L , Mean Corpuscular Volume 92, Mean Corpuscular Hemoglobin 33, Mean Corpuscular Hemoglobin Concent 35, Red Cell Distribution Width 14.8H, Platelet Count 200, Mean Platelet Volume 10.3, Neutrophils (%) (Auto) 90H, Lymphocytes (%) (Auto) 6L , Monocytes (%) (Auto) 4, Eosinophils (%) (Auto) 0, Basophils (%) (Auto) 0, Neutrophils # (Auto) 10.3H, Lymphocytes # (Auto) 0.7L, Monocytes # (Auto) 0.5, Eosinophils # (Auto) 0.0, Basophils # (Auto) 0.0, Neutrophils % (Manual) 89, Lymphocytes % (Manual) 7, Monocytes % (Manual) 4, Sodium Level 125*L, Potassium Level 5.2H, Chloride Level 90L, Carbon Dioxide Level 19L, Anion Gap 16H, Blood Urea Nitrogen 64H, Creatinine 3.83H, Estimat Glomerular Filtration Rate 12, BUN/ Creatinine Ratio 17, Glucose Level 106H, Calcium Level 8.1L, Total Bilirubin 0.3 , Aspartate Amino Transf (AST/SGOT) 33, Alanine Aminotransferase (ALT/SGPT) 27, Alkaline Phosphatase 87, Total Protein 6.7, Albumin 3.8, Magnesium Level 2.3 05/14/18 23:55: Lactic Acid Level 0.97 05/15/18 03:20: White Blood Count 9.1, Red Blood Count 2.87L, Hemoglobin 9.0L, Hematocrit 26L, Mean Corpuscular Volume 91, Mean Corpuscular Hemoglobin 31, Mean Corpuscular Hemoglobin Concent 34, Red Cell Distribution Width 14.9H, Platelet Count 277, Mean Platelet Volume 10.1, Neutrophils (%) (Auto) 87H, Lymphocytes (%) (Auto) 7L , Monocytes (%) (Auto) 5, Eosinophils (%) (Auto) 1, Basophils (%) (Auto) 0, Neutrophils # (Auto) 7.9H, Lymphocytes # (Auto) 0.7L, Monocytes # (Auto) 0.4, Eosinophils # (Auto) 0.1, Basophils # (Auto) 0.0, Sodium Level 125*L, Potassium Level 4.3, Chloride Level 93L, Carbon Dioxide Level 18L, Anion Gap 14, Blood Urea Nitrogen 66H, Creatinine 3.66H, Estimat Glomerular Filtration Rate 13, BUN/ Creatinine Ratio 18, Glucose Level 110H, Calcium Level 7.5L, Phosphorus Level 7.4H, Magnesium Level 2.3 Microbiology 05/14/18 Urine Culture - Preliminary, Resulted Sent To [facility] Assessment/Plan Assessment/Plan Assessment/Plan Hypothermia Acute Abdomen Venous Insufficiency Hyponatremia Acute on Chronic Renal Failure Sepsis AMS B/L LE cellulitis Watery Diarrhea Pt became hypothermic this am and is currently being warmed with [place] and getting warmed crystalloids; this is most likely due to exposure from the cold ICU. Unsure of other causes. CT exam last night was read by the Radiologist as PSBO with no obvious transition point; no free air, no free fluid and no signs of ischemia. Pt is a very poor surgical candidate, but there does not appear to be anything surgical needed at this time. Pt still has altered mental status and hyponatremia with basically no change in either one. Central line placed in RIJ with US guidance looks good. Will continue IV ABX, fluids. Hold free water. Await stool cultures for C. Diff and other enteric organisms. [facility]. Legs appear to be less erythematous but more edematous, still probably cellulitis, will continue to monitor. Clinical Quality Measures DVT/VTE Risk/Contraindication: Risk Factor Score Per Nursin RFS Level Per Nursing on Admit: 4+=Very High DHEERAJ RAIN DO May 15, 2018 08:54
[2018-05-15] MEDS ORDERED: LANS15CA5 PO (09:38)
[2018-05-15] MEDS ORDERED: AMLO10TA2 PO (09:38)
[2018-05-15] MEDS ORDERED: MAGN400O7 PO (10:09)
[2018-05-15] MEDS ORDERED: PHEN-515 PO (10:09)
[2018-05-15] MEDS ORDERED: MELA5TAB14 PO (10:09)
[2018-05-15] MEDS ORDERED: BISA10SU58 RC (10:09)
[2018-05-15] MEDS ORDERED: RT-ALBUINH IH (10:09)
[2018-05-15] MEDS ORDERED: GUAI-365 PO (10:09)
[2018-05-15] MEDS ORDERED: LORA10TA7 PO (10:09)
[2018-05-15] MEDS ORDERED: ACET-2267 PO (10:09)
[2018-05-15] MEDS ORDERED: NA P133E22 RC (10:09)
[2018-05-15] MEDS ORDERED: HALOPERIDOL 5 MG/ML (HALDOL) AMP ONE (10:32)
[2018-05-15] MEDS ORDERED: VANCOMYCIN 1 GM/NS 250 ML IVPB IV SCH ×2 (11:00)
[2018-05-15] MEDS ORDERED: HALOPERIDOL 5 MG/ML (HALDOL) AMP IV NR (11:15)
[2018-05-15 11:33] LABS: ABG BASE EXCESS -7.2 MMOL/L (-2.5-2.5); ABG OXYGEN SATURATION 98 % (94-100); ABG PCO2 46 MMHG (35-45); ABG PO2 102 MMHG (79-93); ABG TCO2 20.4 MMOL/L (21.0-31.0)
[2018-05-15 11:36] LABS: ABG PH 7.23 (7.37-7.43); ALLENS TEST POSITIVE; INSPIRED O2 5L; VENTILATOR NO
[2018-05-15 11:37] LABS: PATIENT TEMP 98.2
--- NOTE | 2018-05-15 11:51 | Progress Note (SOAP) ---
Subjective Subjective/Events-last exam Patient more alert this AM. States that she is hurting all over and that she is very swollen. Coughing and unable to clear her secretions but maintaining her saturations. NPO. Agitated with questions Review of Systems Date Seen by Provider: May 15, 2018 Time Seen by Provider: 10:15 Pulmonary: Cough Cardiovascular: Edema; No: Chest Pain Gastrointestinal: Nausea, Abdominal Pain Focused Exam Lactate Level 05/14/18 23:55: Lactic Acid Level 0.97 Objective Exam Last Set of Vital Signs Vital Signs Date Time Temp Pulse Resp B/P (MAP) Pulse Ox O2 Delivery O2 Flow Rate FiO2 05/15/18 11:00 87 8 106/85 (92) 94 Nasal Cannula 5.00 05/15/18 08:01 93.8 Capillary Refill : Less Than 3 Seconds I&O Intake and Output 05/15/18 00:00 Intake Total 0 ml Output Total 115 ml Balance -115 ml Intake Oral 0 ml Output Urine Total 115 ml General: Alert, Mild Distress Lungs: Other (Crackles bilaterally) Heart: Regular Rate Abdomen: Other (softer then yesterday, distended, + bowel sounds, diffuse ttp, NG in place) Extremities: Other Skin: Other (Erythematous rash from knees down) Results/Procedures Lab Laboratory Tests 05/14/18 14:49: White Blood Count 12.0H, Red Blood Count 3.32L, Hemoglobin 10.2L, Hematocrit 30L , Mean Corpuscular Volume 90, Mean Corpuscular Hemoglobin 31, Mean Corpuscular Hemoglobin Concent 34, Red Cell Distribution Width 15.1H, Platelet Count 345, Mean Platelet Volume 10.3, Neutrophils (%) (Auto) 87H, Lymphocytes (%) (Auto) 7L , Monocytes (%) (Auto) 5, Eosinophils (%) (Auto) 1, Basophils (%) (Auto) 0, Neutrophils # (Auto) 10.4H, Lymphocytes # (Auto) 0.8L, Monocytes # (Auto) 0.6, Eosinophils # (Auto) 0.1, Basophils # (Auto) 0.0, Neutrophils % (Manual) 88, Lymphocytes % (Manual) 10, Monocytes % (Manual) 2, Eosinophils % (Manual) 0, Basophils % (Manual) 0, Band Neutrophils 0, Blood Morphology Comment NORMAL, Sodium Level 124*L, Potassium Level 5.0, Chloride Level 87L, Carbon Dioxide Level 22, Anion Gap 15H, Blood Urea Nitrogen 63H, Creatinine 4.00H, Estimat Glomerular Filtration Rate 12, BUN/Creatinine Ratio 16, Glucose Level 115H, Calcium Level 8.7, Total Bilirubin 0.4, Aspartate Amino Transf (AST/SGOT) 35H, Alanine Aminotransferase (ALT/SGPT) 28, Alkaline Phosphatase 93, Ammonia 40H, Total Protein 7.1, Albumin 4.0, Salicylates Level < 5.0L, Acetaminophen Level < 10L, Serum Alcohol < 10 05/14/18 15:07: Urine Color YELLOW, Urine Clarity VERY CLOUDYH, Urine pH 5, Urine Specific [place] 1.020, Urine Protein 3+H, Urine Glucose (UA) NEGATIVE, Urine Ketones 1+H , Urine Nitrite NEGATIVE, Urine Bilirubin 2+H, Urine Urobilinogen 1, Urine Leukocyte Esterase 3+H, Urine RBC (Auto) 2+H, Urine RBC 5-10H, Urine WBC 50-100H , Urine Squamous Epithelial Cells 0-2, Urine Crystals NONE, Urine Amorphous Sediment MOD SABRA URATESH, Urine Bacteria NEGATIVE, Urine Casts NONE, Urine Mucus NEGATIVE, Urine Culture Indicated YES, Urine Opiates Screen POSITIVEH, Urine Oxycodone Screen NEGATIVE, Urine Methadone Screen NEGATIVE, Urine Propoxyphene Screen NEGATIVE, Urine Barbiturates Screen POSITIVEH, Ur Tricyclic Antidepressants Screen NEGATIVE, Urine Phencyclidine Screen NEGATIVE, Urine Amphetamines Screen NEGATIVE, Urine Methamphetamines Screen NEGATIVE, Urine Benzodiazepines Screen NEGATIVE, Urine Cocaine Screen NEGATIVE, Urine Cannabinoids Screen NEGATIVE 05/14/18 20:40: Blood Gas Puncture Site RT RAD, Blood Gas Patient Temperature 98.8, Arterial Blood pH 7.27*L, Arterial Blood Partial Pressure CO2 49H, Arterial Blood Partial Pressure O2 71L, Arterial Blood HCO3 22L, Arterial Blood Total CO2 23.0 , Arterial Blood Oxygen Saturation 93L, Arterial Blood Base Excess -4.3L, Dominguez Test YES-POS, Blood Gas Ventilator Setting NO, Blood Gas Inspired Oxygen 5L 05/14/18 20:50: White Blood Count 11.5H, Red Blood Count 2.82L, Hemoglobin 9.2L, Hematocrit 26L , Mean Corpuscular Volume 92, Mean Corpuscular Hemoglobin 33, Mean Corpuscular Hemoglobin Concent 35, Red Cell Distribution Width 14.8H, Platelet Count 200, Mean Platelet Volume 10.3, Neutrophils (%) (Auto) 90H, Lymphocytes (%) (Auto) 6L , Monocytes (%) (Auto) 4, Eosinophils (%) (Auto) 0, Basophils (%) (Auto) 0, Neutrophils # (Auto) 10.3H, Lymphocytes # (Auto) 0.7L, Monocytes # (Auto) 0.5, Eosinophils # (Auto) 0.0, Basophils # (Auto) 0.0, Neutrophils % (Manual) 89, Lymphocytes % (Manual) 7, Monocytes % (Manual) 4, Sodium Level 125*L, Potassium Level 5.2H, Chloride Level 90L, Carbon Dioxide Level 19L, Anion Gap 16H, Blood Urea Nitrogen 64H, Creatinine 3.83H, Estimat Glomerular Filtration Rate 12, BUN/ Creatinine Ratio 17, Glucose Level 106H, Calcium Level 8.1L, Total Bilirubin 0.3 , Aspartate Amino Transf (AST/SGOT) 33, Alanine Aminotransferase (ALT/SGPT) 27, Alkaline Phosphatase 87, Total Protein 6.7, Albumin 3.8, Magnesium Level 2.3 05/14/18 23:55: Lactic Acid Level 0.97 05/15/18 03:20: White Blood Count 9.1, Red Blood Count 2.87L, Hemoglobin 9.0L, Hematocrit 26L, Mean Corpuscular Volume 91, Mean Corpuscular Hemoglobin 31, Mean Corpuscular Hemoglobin Concent 34, Red Cell Distribution Width 14.9H, Platelet Count 277, Mean Platelet Volume 10.1, Neutrophils (%) (Auto) 87H, Lymphocytes (%) (Auto) 7L , Monocytes (%) (Auto) 5, Eosinophils (%) (Auto) 1, Basophils (%) (Auto) 0, Neutrophils # (Auto) 7.9H, Lymphocytes # (Auto) 0.7L, Monocytes # (Auto) 0.4, Eosinophils # (Auto) 0.1, Basophils # (Auto) 0.0, Sodium Level 125*L, Potassium Level 4.3, Chloride Level 93L, Carbon Dioxide Level 18L, Anion Gap 14, Blood Urea Nitrogen 66H, Creatinine 3.66H, Estimat Glomerular Filtration Rate 13, BUN/ Creatinine Ratio 18, Glucose Level 110H, Calcium Level 7.5L, Phosphorus Level 7.4H, Magnesium Level 2.3 05/15/18 11:26: Blood Gas Puncture Site RIGHT RADIAL, Blood Gas Patient Temperature 98.2, Arterial Blood pH 7.23*L, Arterial Blood Partial Pressure CO2 46H, Arterial Blood Partial Pressure O2 102H, Arterial Blood HCO3 19L, Arterial Blood Total CO2 20.4L, Arterial Blood Oxygen Saturation 98, Arterial Blood Base Excess -7.2L , Dominguez Test POSITIVE, Blood Gas Ventilator Setting NO, Blood Gas Inspired Oxygen 5L Microbiology 05/14/18 C. difficile GDH Antigen & Toxins - Final, Complete 05/14/18 Urine Culture - Preliminary, Resulted Results To Follow Sent To [facility] Date of Exam:05/14/18 ABDOMEN/KUB 1VIEW INDICATION: Distended abdomen. Concern for perforation. EXAMINATION: Abdomen, 05/14/2018. FINDINGS: A single supine portable view of the abdomen demonstrates markedly dilated small bowel loops throughout the abdomen. The stomach is also distended with debris and air. No significant air is seen within the left colon and no air is seen in the rectosigmoid. Findings highly suspicious for an obstructive process. On this single view, free air is difficult to exclude. Upright imaging of the upper abdomen would be recommended, otherwise CT could be performed to evaluate for free air. IMPRESSION: 1. Findings highly suspicious for a high-grade obstructive process. 2. Free air cannot be excluded on this examination alone. I would recommend CT imaging of the abdomen and pelvis or upright or decubitus imaging of the abdomen. Assessment/Plan Assessment/Plan (1) Alteration consciousness Status: Acute Assessment & Plan: - Possible medication overdose vs infection vs electrolyte imbalance - Transferred patient to ICU status - Repeat labs showed minimal improvement 05/15: improved, will continue to monitor (2) Severe sepsis Status: Acute Assessment & Plan: - LA pending - Added on Vanc with Rocephin - IVFs less then 30 mL/kg due to pedal edema and basilar lung crackles, Will continue to monitor MAP closely - Central line placement by Dr Caro 05/15: Continue broad spectrum antibiotics (3) Metabolic acidosis Status: Acute (4) Acute abdomen Status: Acute Assessment & Plan: - KUB shows concern for obstruction, STAT CT pending 05/15: NG in place, CT with partial obstruction (5) Acute renal failure Status: Acute Assessment & Plan: - Will continue to monitor - Will need renally adjusted medications 05/15: BUN with no improvement, Cr shows mild improvement, patient third spacing fluid, Patient needs nephrology care, plan to transfer patient (6) Urinary tract infection Status: Acute Assessment & Plan: Pt given Ceftriaxone IV in ED, culture pending 05/15: continue antibiotics Qualifiers: Qualified Codes: N39.0 - Urinary tract infection, site not specified; R31.9 - Hematuria, unspecified (7) Hyponatremia Status: Acute Assessment & Plan: - Likely 2/2 to medications, Sodium repletion and recheck electrolytes, Will follow trend closely while treating the sepsis 05/15: Plan to transfer due to multiple electrolyte abnormalities (8) Cellulitis of both lower extremities Status: Acute Assessment & Plan: - Patient with h/o MRSA, Vancomycin added (9) Distended abdomen Status: Acute (10) Watery diarrhea Status: Acute (11) Hyperkalemia Status: Acute (12) DVT prophylaxis Status: Acute Clinical Quality Measures DVT/VTE Risk/Contraindication: Risk Factor Score Per Nursin RFS Level Per Nursing on Admit: 4+=Very High KWAKU GAONA MD May 15, 2018 11:51 am
--- NOTE | 2018-05-15 11:53 | Discharge Summary ---
Diagnosis/Chief Complaint Date of Admission May 14, 2018 at 6:36 pm Date of Discharge Chief Complaint/HPI Chief Complaint/HPI History obtained from ER records, patient unable to give much history but moans in pain with palpation of abdomen. Presented to ER with diarrhea and vomiting. Discharge Summary-Simple/Stand Consultations Discharge Physical Examination Allergies: Coded Allergies: nitrous oxide (Verified Allergy, Unknown, 06/08/07) Vitals & I&Os Vital Sign - Last 12Hours Date Time Temp Pulse Resp B/P (MAP) Pulse Ox O2 Delivery O2 Flow Rate FiO2 05/15/18 11:00 87 8 106/85 (92) 94 Nasal Cannula 5.00 05/15/18 08:01 93.8 Intake and Output 05/15/18 00:00 Intake Total 0 ml Output Total 115 ml Balance -115 ml Hospital Course See final discharge diagnosis. Radiology Reviewed Date of Exam:05/14/18 ABDOMEN/KUB 1VIEW INDICATION: Distended abdomen. Concern for perforation. EXAMINATION: Abdomen, 05/14/2018. FINDINGS: A single supine portable view of the abdomen demonstrates markedly dilated small bowel loops throughout the abdomen. The stomach is also distended with debris and air. No significant air is seen within the left colon and no air is seen in the rectosigmoid. Findings highly suspicious for an obstructive process. On this single view, free air is difficult to exclude. Upright imaging of the upper abdomen would be recommended, otherwise CT could be performed to evaluate for free air. IMPRESSION: 1. Findings highly suspicious for a high-grade obstructive process. 2. Free air cannot be excluded on this examination alone. I would recommend CT imaging of the abdomen and pelvis or upright or decubitus imaging of the abdomen. Discharge Instructions to patient/family Please see electronic discharge instructions given to patient. Discharge Medications Reviewed and agree with Discharge Medication list on patient's Discharge Instruction sheet Clinical Quality Measures DVT/VTE Risk/Contraindication: Risk Factor Score Per Nursin RFS Level Per Nursing on Admit: 4+=Very High KWAKU GAONA MD May 15, 2018 11:53 am
[2018-05-15] MEDS ORDERED: cefTRIAXone INJECTION 1,000 MG in NS (IVPB) 50 ML IV SCH (18:00)
[2018-05-16] MEDS ORDERED: TROUGH ORDER-PHARMACY XX NR (10:00)
--- NOTE | 2018-05-18 13:13 | Physician Query Clarification ---
PQ-Further Specificity Admission/Discharge Admission Date: May 14, 2018 at 18:36 Discharge Date: May 15, 2018 at 13:40 The medical record reflects the following clinical scenario: History/Risk Factors: Sepsis, acute renal failure, PSBO Clinical Findings: AMS, Na+ 124, BUN 63, CR 4.00, Abd xray - highly suspicious for high grade obstruction, BP 72/59 Treatment: RIJ Question: Can you further specify where the catheter terminates per the clinical indicators above? Please document below. 1. Superior vena cava 2. Right internal jugular 3. Other, with explanation of the clinical findings. 4. Clinically undetermined, no explanation for the clinical findings. PHYSICIAN RESPONSE Can you specify per above: 1 In responding to this query, please exercise your independent professional judgment. The purpose of this communication is to more accurately reflect the complexity of your patients condition. The fact that a question is asked does not imply that any particular answer is desired or expected. Thank you for your timely response to this clarification. Requestors name: [ ] Phone # [ ] THIS PHYSICIAN QUERY FORM IS A PERMANENT PART OF THE MEDICAL RECORD NAJMA ESTEBAN May 18, 2018 13:13 DHEERAJ RAIN DO May 27, 2018 13:06
--- NOTE | 2018-05-19 11:18 | Diagnostic Imaging Report ---
PROCEDURE: CT abdomen and pelvis without contrast. TECHNIQUE: Multiple contiguous axial images were obtained through the abdomen and pelvis without the use of intravenous contrast. INDICATION: Pancreatitis, abdominal distention. FINDINGS: The proximal and mid small bowel is dilated with scattered differential air-fluid levels. The distal ileum is decompressed. A discrete transition could not be precisely localized, however, the pattern is suspect for at least partial distal small bowel obstruction. The colon is unremarkable. No pneumatosis or free gas. Unobstructed kidneys appeared nonacute with chronic right renal atrophy stable. The liver, gallbladder, spleen, adrenals and pancreas unremarkable. The aorta is nonaneurysmal. Ventral periumbilical partial herniation nonobstructing is unchanged. IMPRESSION: 1. Findings suspicious for distal small bowel obstruction, however, a discrete transition cannot be clearly delineated. The terminal ileum noted decompressed. No identifiable cause of suspected obstruction stable ventral nonobstructing hernia is unchanged. 2. Chronic right renal atrophy. No acute hepatobiliary abnormality. Nonacute urinary tracts. Dictated by: Dictated on workstation # [id number]
--- NOTE | 2018-05-21 11:15 | OPERATIVE REPORT ---
DATE OF SERVICE: PREOPERATIVE DIAGNOSES: 1. Venous insufficiency. 2. Acute abdomen. 3. Hyponatremia. 4. Acute mental status changes. 5. Acute renal failure. 6. Rule out sepsis. POSTOPERATIVE DIAGNOSES: 1. Venous insufficiency. 2. Acute abdomen. 3. Hyponatremia. 4. Acute mental status changes. 5. Acute renal failure. 6. Rule out sepsis. PROCEDURE: Right IJ with ultrasound guidance. SURGEON: Saroj Caro DO. PODIATRIC TECHNICIAN: None. ANESTHESIA: Local lidocaine. BLOOD LOSS: Less than 15 mL. SPECIMENS: None. FLUIDS: None. POSTOPERATIVE CONDITION: Stable. INDICATION FOR PROCEDURE: A 57-year-old female with altered mental status, decompensated on the floor, was sent to the ICU, thought to have acute abdomen. She has acute renal failure, thought possibly to rule out sepsis and she has multiple lines, very poor veins, venous insufficiency, in need of the line placed. FINDINGS: The patient had a right IJ triple lumen catheter placed with ultrasound guidance. PROCEDURE NOTE: Unfortunately, unable to obtain the consent from the patient or from her family, so this was an emergent central line. Prepped and draped in normal fashion. Local lidocaine anterior right neck. Then, using ultrasound cannulated the vein on the first attempt, but could not get good flash of blood, could not get the guidewire to thread, tried a second time, could not get that to thread and then finally a third time went a little bit higher because there have been some vein spasming, got a good flash of blood, saw the needle in the right IJ and then removed the syringe, placed a needle using Seldinger technique. It went in easily, removed the needle and made a stab incision along the guidewire and then over the guidewire placed using Seldinger technique, it went in easily, then removed this and then placed the triple lumen catheter over the guidewire using Seldinger technique, it went in easily. Because this is a 20 cm catheter, positioned her down a little bit so that IJ was not completely buried and then sutured this in place with a 2-0 silk suture tying to the other side. This area was cleaned and dried and an antibiotic sponge placed and then a Tegaderm placed. Good flash of blood then easily flushed in all 3 ports. The patient tolerated the procedure well, although she did move around a lot, it was very hard, which led to the first couple attempts not able to get in, but finally in and working. Job ID: [id number] DocumentID: [id number] Dictated Date: 05/15/2018 00:45:23 Business Rules Developer Date: 05/15/2018 01:33:07 Dictated By: DO DERRICK MARC
--- OUTSIDE RECORDS SUMMARY | 2018-05-22 13:51 | XMS REPORT ---
Author Author TRACEE LANGE Organization [facility] Address [address] [place] [address] Care Team Providers Care Stone Polisher Name Role Phone TRACEE LANGE Unavailable PROBLEMS Type Condition ICD9-CM Code CEC03-KJ Code Onset Dates Condition Status SNOMED Code Problem Thoracic neuritis M54.14 Active 35698493 Problem Intracranial injury, without loss of consciousness, subsequent encounter S06.9X0D Active 889623863 Problem Ventricular arrhythmia I49.9 Active 53154920 Problem Epileptic seizure, generalized G40.309 Active 62716698 Problem Hypertension, benign I10 Active 52403689 Problem Lumbar neuritis M54.16 Active 471505477 Problem GERD (gastroesophageal reflux disease) K21.9 Active 024280863 Problem Cardiomyopathy I42.9 Active 52407472 ALLERGIES No Known Allergies ENCOUNTERS Encounter Location Date Diagnosis [place] [address] [address] February, Ventricular arrhythmia I49.9 [place] [address] [address] February, [place] [address] [place] [id number] [place] [address]- [address] Dec, Thoracic neuritis M54.14 ; Lumbar neuritis M54.16 and Epileptic seizure, generalized G40.309 [place] [address] [place] [id number] [place] [address] 84348- 6826 Sep, Epileptic seizure, generalized G40.309 and Lumbar neuritis M54.16 [place] [address] [address]- [address] Aug, Thoracic neuritis M54.14 and Lumbar neuritis M54.16 [place] [address] [address]- 2416 Jun, [place] [address] [place] [id number] [place] [address] 42031- 0335 Jun, Abscess of leg, left L02.416 [place] [address] [place] [id number] [place] [address] 29963- 4414 May, Lumbar neuritis M54.16 ; Thoracic neuritis M54.14 ; Intracranial injury, without loss of consciousness, subsequent encounter S06.9X0D and Cardiomyopathy I42.9 [place] [address] [place] [id number] [place] [address] 45184- 4172 Apr, Lumbar neuritis M54.16 [place] [address] [address]- [address]37 Apr, [place] [address] 66[address]- 8381 Apr, Elevated liver enzymes R74.8 and Renal insufficiency N28.9 [place] [id number] [place] [address] 56816- 2626 Apr, Lumbar neuritis M54.16 ; Thoracic neuritis M54.14 ; Hypertension, benign I10 ; Cardiomyopathy I42.9 and Epileptic seizure, generalized G40.309 [place] [address] [place] [id number] [place] [address] 17946- 4143 Mar, [place] [address] [place] [id number] [place] [address] 84268- 1392 February, [place] [id number] [place] [address] 87186- 6952 February, Lumbar neuritis M54.16 ; Thoracic neuritis M54.14 ; Hypertension, benign I10 ; Cardiomyopathy I42.9 and Epileptic seizure, generalized G40.309 [place] [address] [place] [id number] [place] [address] 20765- 2632 Dec, [place] [address] [address]23- 0168 Sep, Epigastric mass R19.06 [facility] [address] [place] [id number] [place] [address] 86329- 8687 Sep, Epigastric mass R19.06 [place] [address] [place] [id number] [place] [address] 06219- 6126 Sep, [place] [address] 20629- 5232 Sep, Epigastric mass R19.06 [place] [address] 41457- 3430 Sep, Epigastric mass R19.06 and Lung mass R91.8 [facility] [address] [address] Jul, Shortness of breath R06.02 ; Dysuria R30.0 and Acute bronchitis, unspecified organism J20.9 [place] [address] 27447- 4916 Jul, [place] [address] 87921- 2970 Jun, Seizures R56.9 ; Thoracic neuritis M54.14 ; Lumbar neuritis M54.16 and GERD (gastroesophageal reflux disease) K21.9 [facility] [place] [address] [place] [id number] [place] [address] 72723 -2022 Jan, [place] [address] 85462- 0573 Sep, [place] [address] [place] [id number] [place] [address] 03406- 8133 Sep, Intracranial injury, without loss of consciousness, subsequent encounter S06.9X0D ; Cardiomyopathy I42.9 ; GERD (gastroesophageal reflux disease) K21.9 ; Hypertension, benign I10 ; Thoracic neuritis M54.14 and Lumbar neuritis M54.16 [place] [address] 90732- 0949 Mar, [facility] [address] [address] Mar, Coronary atherosclerosis of unspecified type of vessel, ekuk or graft 414.00 ; Unspecified essential hypertension 401.9 ; Thoracic or lumbosacral neuritis or radiculitis, unspecified 724.4 and Other convulsions 780.39 [facility] [address] [place] [id number] [place] [address] 63487- 6025 Jan, [facility] [address] [place] [id number] [place] [address] 84887- 3082 Jan, [facility] [address] [place] [id number] [place] [address] 12764- 4079 Nov, [facility] [address] [place] [id number] [place] [address] 81595- 3357 Nov, [facility] [address] [place] [id number] [place] [address] 78640- 8070 Nov, [facility] [id number] [place] [address] 09051- 7204 Nov, [facility] [address] [place] [id number] [place] [address] 96012- 6288 Nov, [facility] [id number] [place] [address] 53395- 3339 Nov, [facility] [id number] [place] [address] 83579- 2493 Nov, [facility] [id number] [place] [address] 958877- 6443 Nov, [facility] [address] [place] [id number] [place] [address] 68929- 0270 Nov, [facility] [id number] [place] [address] 404732- 8002 Nov, [facility] [address] [place] [id number] [place] [address] 50722- 0559 Sep, [facility] [place] [facility] [address] [id number] [place] [address]- 8610 Sep, [facility] [place] [facility] [address] [id number] [place] [address]- 1503 Aug, [facility] [place] [facility] [address] [id number] [place] [address]- 5756 Aug, [facility] [place] [facility] [address] [id number] [place] [address]- 5091 Aug, [facility] [place] [facility] [address] [id number] [place] [address]- 6999 Aug, [facility] [place] [facility] [address] [id number] [place] [address]- 4433 Jul, [facility] [place] [facility] [address] [id number] [place] [address]- 2635 Jul, [facility] [place] [facility] [address] [id number] [place] [address]- 6205 Jul, [facility] [place] [facility] [address] [id number] [place] [address]- 2614 Jul, [facility] [place] [facility] [address] [facility] [id number] [place] [address]- 2108 Jun, [facility] [place] [facility] [address] [id number] [place] [address]- 8660 Jun, [facility] [place] [facility] [address] [id number] [place] [address]- 4298 Jun, [facility] [place] [facility] [address] [id number] [place] [address]- 7062 May, [facility] [place] [facility] [address] [id number] [place] [address]- 2340 May, [facility] [place] [facility] [address] [facility] [id number] [place] [address]- 3712 May, [facility] [place] [facility] [address] [id number] [place] [address]- 6235 May, [facility] [place] [facility] [address] [id number] [place] [address]- 4539 May, [facility] [place] [facility] [address] [id number] [place] [address]- 3305 May, [facility] [place] [facility] [address] [id number] [place] [address]- 3836 May, [facility] [place] [facility] [address] [id number] [place] [address]- 2289 May, [facility] [place] [facility] [address] [id number] [place] [address]- 5084 February, [facility] [place] [facility] [address] [id number] [place] [address]- 5728 February, [facility] [place] [facility] [address] [id number] [place] [address]- 9764 Jan, [facility] [place] [facility] [address] [id number] [place] [address]- 1232 Jan, [facility] [place] [facility] [address] [id number] [place] [address]- 1767 Jan, [facility] [place] [facility] [address] [id number] [place] [address]- 5139 Jan, [facility] [place] [facility] [address] [id number] [place] [address]- 3375 Nov, [facility] [place] [facility] [address] [id number] [place] [address]- 9311 Nov, [facility] [place] [facility] [address] [id number] [place] [address]- 5286 Nov, [facility] [place] [facility] [address] [id number] [place] [address]- 5229 Nov, [facility] [place] [facility] [address] [id number] [address]- 4916 Sep, [facility] [address] [id number] [place] [address]- 7156 Sep, [facility] [address] [id number] [place] [address]- 4747 Sep, [facility] [address] [id number] [place] [address]- 3038 Sep, [facility] [address] [id number] [place] [address]- 4867 Sep, [facility] [address] [id number] [place] [address]- 2360 Sep, [facility] [address] [id number] [address]- 7314 Jul, [facility] [address] [id number] [address]- 6993 Jul, [facility] [address] [id number] [place] [address]- 9726 30 Jun, 2013 [facility] [address] [id number] [address]- 0948 Jun, [facility] [address] [id number] [place] [address]- 3899 Jun, [facility] [address] [id number] [place] [address]- 1499 May, [facility] [address] [place] [id number] May [facility] [address] [id number] [place] [address]- 4215 May, [facility] [address] [id number] [address]- 6306 May, [facility] [address] [id number] [place] [address]- 5033 May, [facility] [address] [id number] [place] [address]- 4314 May, [facility] [address] [id number] [place] [address]- 2070 May, [facility] [place] [facility] [address] [id number] [place] [address]- 3691 Apr, [facility] [address] [id number] [place] [address]- 7517 Apr, [facility] [place] [facility] [address] [id number] [place] [address]- 7173 Apr, [facility] [address] [id number] [place] [address]- 6925 Apr, [facility] [address] [id number] [place] [address]- 7160 Mar, [facility] [address] [id number] [place] [address]- 7356 February, [facility] [address] [id number] [place] [address]- 5560 Jan, [facility] [address] [id number] [place] [address]- 3205 Dec, [facility] [place] [facility] [address] [id number] [place] [address]- 4497 Dec, [facility] [address] [id number] [place] [address]- 6764 Dec, [facility] [place] [facility] [address] [id number] [place] [address]- 2462 Nov, [facility] [place] [facility] [address] [id number] [place] [address]- 2411 Nov, [facility] [place] [facility] [address] [id number] [place] [address]- 6851 Nov, [facility] [place] [facility] [address] [id number] [place] [address]- 5187 Oct, [facility] [place] [facility] [address] [id number] [place] [address]- 5803 Oct, [facility] [place] [facility] [address] [id number] [place] [address]- 6361 Sep, [facility] [place] [facility] [address] [id number] [place] [address]- 5986 Sep, [facility] [place] [facility] [address] [id number] [place] [address]- 2180 Sep, [facility] [place] [facility] [address] [id number] [place] [address]- 7079 Sep, [facility] [place] [facility] [address] [id number] [place] [address]- 6704 Sep, [facility] [place] [facility] [address] [id number] [place] [address]- 5549 Sep, [facility] [place] [facility] [address] [id number] [place] [address]- 9822 Aug, [facility] [place] [facility] [address] [id number] [place] [address]- 6990 Aug, [facility] [place] [facility] [address] [id number] [place] [address]- 7777 Aug, [facility] [place] [facility] [address] [id number] [place] [address]- 7650 Aug, [facility] [place] [facility] [address] [id number] [place] [address]- 6706 Aug, [facility] [place] [facility] [address] [id number] [place] [address]- 2311 Aug, [facility] [place] [facility] [address] [id number] [place] [address]- 1767 Aug, [facility] [place] [facility] [address] [id number] [place] [address]- 3101 Aug, [facility] [place] [facility] [address] [id number] [place] [address]- 3797 Aug, [facility] [place] [facility] [address] [id number] [place] 4445 Aug, [facility] [place] [facility] [address] [id number] [place] [address]- 3195 Jul, [facility] [place] [facility] [address] [id number] [place] [address]- 3850 Jul, [facility] [place] [facility] [address] [id number] [place] [address]- 6396 Jul, [facility] [place] [facility] [address] [id number] [place] [address]- 8137 Jul, [facility] [place] [facility] [address] [id number] [address]- 8499 Jul, [facility] [place] [facility] [address] [id number] [place] [address]- 2466 Jul, [facility] [place] [facility] [address] [id number] [address]- 4471 Jul, [facility] [place] [facility] [address] [id number] [address]- 9855 Jul, [facility] [place] [facility] [address] [id number] [place] [address]- 7606 Jul, [facility] [place] [facility] [address] [id number] [place] [address]- 9138 Jul, [facility] [place] [facility] [address] [id number] [place] [address]- 3422 Jul, [facility] [place] [facility] [address] [id number] [place] [address]- 0646 Jul, [facility] [place] [facility] [address] [facility] [id number] [address]- 9073 Jul, [facility] [place] [facility] [address] [facility] [id number] [place] [address]- 6493 Jul, [facility] [place] [facility] [address] [id number] [place] [address]- 6428 Jul, [facility] [address] [id number] [place] [address]- 1068 28 Jun, 2012 [facility] [place] [facility] [address] [id number] [place] [address]- 8578 24 Jun, 2012 [facility] [address] [id number] [place] [address]- 8348 Jun, [facility] [place] [facility] [address] [id number] [place] [address]- 8942 May, [facility] [address] [id number] [place] [address]- 0233 May, [facility] [address] [id number] [place] [address]- 6951 Mar, [facility] [address] [id number] [place] [address]- 1474 Mar, [facility] [address] [id number] [place] [address]- 4836 February, [facility] [address] [id number] [place] [address]- 0214 February, [facility] [address] [id number] [place] [address]- 6280 Nov, [facility] [address] [id number] [place] [address]- 6127 Oct, [facility] [address] [id number] [place] [address]- 2970 Oct, [facility] [place] [facility] [address] [id number] [place] [address]- 4335 Oct, [facility] [place] [facility] [address] [id number] [place] [address] 2546 Aug, [facility] [address] [id number] [place] [address]- 6748 Jul, [facility] [address] [place] [place] [id number] [address]- 0126 Sep, [facility] [address] [address]- 6676 Aug, [facility] [address] [place] [id number] [address]- 8836 Jul, [facility] [address] [address]- 0006 Apr, [facility] [address] [address]- 9986 February, [facility] [address] [address]- 0426 Sep, [facility] [address] [address]- 0686 Sep, [facility] [address] [address]- 7696 Sep, [facility] [address] [address]- 6596 Apr, [facility] [address] [address]- 9916 Mar, [facility] [address] [id number] [address]- 2546 February, [facility] [address] [id number] [address]- 2446 Jan, [facility] [address] [id number] [address]- 7386 Jul, IMMUNIZATIONS No Known Immunizations SOCIAL HISTORY Never Assessed REASON FOR VISIT Pain management (chronic), PT has no concerns-Linda GRANADO PLAN OF CARE VITAL SIGNS Height 63 in 2017-12-11 Weight 171.8 lbs 2017-12-11 Temperature 98.7 degrees Fahrenheit 2017-12-11 Heart Rate 92 bpm 2017-12-11 Respiratory Rate 20 2017-12-11 BMI 30.43 kg/m2 2017-12-11 Blood pressure systolic 158 mmHg 2017-12-11 Blood pressure diastolic 96 mmHg 2017-12-11 MEDICATIONS Medication Instructions Dosage Frequency Start Date End Date Duration Status Flexeril 10 mg 1 tablet 12h 13 May, 2014 Active Protonix 40 mg Orally Once a day 1 tablet 24h 15 Sep, 2015 Active Scooter N/A as directed May, Not-Taking Aspirin 650 mg 1 Tablet by Oral route 6 times per hour Nov, Not-Taking ProAir HFA 108 (90 Base) MCG/ACT Inhalation every 4 hrs 2 puffs as needed 4h 31 Jul, 2016 Active Melatonin 3 MG Orally at bedtime 3 tablet at bedtime as needed with food Not-Taking MS Contin 30 MG 1 tablet 12h Dec, Active Phenobarbital 97.2 mg 1 tablet 24h 24 Feb, 2014 Active Metoprolol Tartrate 50 mg Orally Twice a day 1 tablet with food 12h Sep 30 day(s) Active Morphine Sulfate 15 MG Orally 2 times a day 1 tablet as needed 12h Dec, Active Reglan 10 mg Orally 4 times a day 1 tablet 6h 11 Jun, 2017 Active Advair Diskus 100 mcg-50 mcg Inhalation Twice a day 1 puff 12h 09 Nov, 2014 Active RESULTS No Results PROCEDURES No Known procedures INSTRUCTIONS MEDICATIONS ADMINISTERED No Known Medications MEDICAL (GENERAL) HISTORY Type Description Date Medical History 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
--- OUTSIDE RECORDS SUMMARY | 2018-05-22 13:51 | XMS REPORT | Clinical Summary ---
Author Author [facility] Organization [facility] Address Unknown Phone Unavailable Care Team Providers Care Blocker And Cutter Contact Lens Name Role Phone Sander Bates Unavailable Anita [...] in the Health Information Management department at [phone] for further assistance in locating additional records.[facility] Allergies Active Allergy Reactions Severity [...] disorder 09/12/2014 Osteomyelitis (HCC) 09/12/2014 Polysubstance abuse (HCC) 09/12/2014 CKD (chronic kidney disease) 09/12/2014 MRSA [...] Taken Blood Pressure 110/80 11/11/2014 1:07 PM SLITTER CREASER SLOTTER OPERATOR Pulse 72 11/11/2014 1:07 PM SLITTER CREASER SLOTTER OPERATOR Temperature 36.5 C (97.7 F) 11/11/2014 1:07 PM SLITTER CREASER SLOTTER OPERATOR Respiratory Rate 16 11/11/2014 1:07 PM SLITTER CREASER SLOTTER OPERATOR Oxygen Saturation 94% 09/21/2014 7:45 AM SLITTER CREASER SLOTTER OPERATOR Inhaled Oxygen - - Concentration Weight 82.1 kg (181 lb) 11/11/2014 1:07 PM SLITTER CREASER SLOTTER 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 Height 160 cm (5' 3") 11/11/2014 1:07 PM SLITTER CREASER SLOTTER OPERATOR Body Mass Index 32.06 11/11/2014 1:07 PM SLITTER CREASER SLOTTER 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
--- OUTSIDE RECORDS SUMMARY | 2018-05-22 13:52 | XMS REPORT ---
Author Author TRACEE LANGE Organization [facility] Address [address] [place] [address] Care Team Providers Care Laundry Clerk Name Role Phone TRACEE LANGE Unavailable PROBLEMS Type Condition ICD9-CM Code NXA14-EN Code Onset Dates Condition Status SNOMED Code Problem Thoracic neuritis M54.14 Active 64668462 Problem Intracranial injury, without loss of consciousness, subsequent encounter S06.9X0D Active 377469827 Problem Ventricular arrhythmia I49.9 Active 40404654 Problem Epileptic seizure, generalized G40.309 Active 19863409 Problem Hypertension, benign I10 Active 16719295 Problem Lumbar neuritis M54.16 Active 932827281 Problem GERD (gastroesophageal reflux disease) K21.9 Active 028136405 Problem Cardiomyopathy I42.9 Active 49582616 ALLERGIES No Known Allergies ENCOUNTERS Encounter Location Date Diagnosis [place] [address] [address] Mar, [place] [address] [address] February, Ventricular arrhythmia I49.9 [place] [address] [address] February, [place] [address] [address] Dec, Thoracic neuritis M54.14 ; Lumbar neuritis M54.16 and Epileptic seizure, generalized G40.309 [place] [address] [address] Sep, Epileptic seizure, generalized G40.309 and Lumbar neuritis M54.16 [place] [address] [address] Aug, Thoracic neuritis M54.14 and Lumbar neuritis M54.16 [place] [address] [address] Jun, [place] [address] [address] Jun, Abscess of leg, left L02.416 [place] [address] [address] May, Lumbar neuritis M54.16 ; Thoracic neuritis M54.14 ; Intracranial injury, without loss of consciousness, subsequent encounter S06.9X0D and Cardiomyopathy I42.9 [place] [address] [address] Apr, Lumbar neuritis M54.16 [place] [address] [address] Apr, [place] [address] [address] Apr, Elevated liver enzymes R74.8 and Renal insufficiency N28.9 [place] [address] [address] Apr, Lumbar neuritis M54.16 ; Thoracic neuritis M54.14 ; Hypertension, benign I10 ; Cardiomyopathy I42.9 and Epileptic seizure, generalized G40.309 [place] [address] [address] Mar, [facility] [address] [address] February, [place] [address] [address] February, Lumbar neuritis M54.16 ; Thoracic neuritis M54.14 ; Hypertension, benign I10 ; Cardiomyopathy I42.9 and Epileptic seizure, generalized G40.309 [place] [address] [address] Dec, [facility] [address] [place] [id number] [place] [address]- 7471 Sep, Epigastric mass R19.06 [place] [address] [place] [id number] [place] [address]- 1899 Sep, Epigastric mass R19.06 [place] [address] [address]- [address] Sep, [facility] [address] [address]- [address] Sep, Epigastric mass R19.06 [place] [address] [address]- 65[address] Sep, Epigastric mass R19.06 and Lung mass R91.8 [facility] [place] [address] [address] Jul, Shortness of breath R06.02 ; Dysuria R30.0 and Acute bronchitis, unspecified organism J20.9 [place] [address] [place] [id number] [place] [address]- 9477 Jul, [place] [address] [address]- [address] Jun, Seizures R56.9 ; Thoracic neuritis M54.14 ; Lumbar neuritis M54.16 and GERD (gastroesophageal reflux disease) K21.9 [facility] [address] [place] [id number] [place] [address] -[address] Jan, [place] [address] [place] [id number] [place] [address] 08796- 4089 Sep, [place] [address] [address]- [address] Sep, Intracranial injury, without loss of consciousness, subsequent encounter S06.9X0D ; Cardiomyopathy I42.9 ; GERD (gastroesophageal reflux disease) K21.9 ; Hypertension, benign I10 ; Thoracic neuritis M54.14 and Lumbar neuritis M54.16 [facility] [address] [address] Mar, [facility] [address] [place] [id number] [place] [address]47- 0803 Mar, Coronary atherosclerosis of unspecified type of vessel, [place] or graft 414.00 ; Unspecified essential hypertension 401.9 ; Thoracic or lumbosacral neuritis or radiculitis, unspecified 724.4 and Other convulsions 780.39 [facility] [address] [place] [id number] [place] [address] 99814- 6280 Jan, [facility] [address] [place] [id number] [place] [address] 24432- 9645 Jan, [facility] [address] [place] [id number] [place] [address] 17775- 2550 Nov, [facility] [address] [place] [id number] [place] [address] 25866- 5544 Nov, [facility] [id number] [place] [address] 18039- 9972 Nov, [facility] [address] [place] [id number] [place] [address] 25241- 2875 Nov, [facility] [id number] [place] [address] 62098- 1739 Nov, [facility] [id number] [place] [address] 00492- 6039 Nov, [facility] [id number] [place] [address]32- 7673 Nov, [facility] [address] [place] [id number] [place] [address] 31132- 0059 Nov, [facility] [id number] [place] [address] 089613- 5564 Nov, [facility] [address] [place] [id number] [place] [address] 03955- 3343 Nov, [facility] [place] [facility] [address] [id number] [place] [address]- 6016 Sep, [facility] [place] [facility] [address] [id number] [place] [address]- 2772 Sep, [facility] [place] [facility] [address] [facility] [id number] [place] [address]- 0073 Aug, [facility] [place] [facility] [address] [id number] [place] [address]- 1015 Aug, [facility] [place] [facility] [address] [id number] [place] [address]- 3514 Aug, [facility] [place] [facility] [address] [id number] [place] [address]- 3139 Aug, [facility] [place] [facility] [address] [facility] [id number] [place] [address]- 0491 Jul, [facility] [place] [facility] [address] [id number] [place] [address]- 1850 Jul, [facility] [place] [facility] [address] [facility] [id number] [place] [address]- 8770 Jul, [facility] [place] [facility] [address] [facility] [id number] [place] [address]- 1742 Jul, [facility] [place] [facility] [address] [id number] [place] [address]- 1306 Jun, [facility] [place] [facility] [address] [id number] [place] [address]- 3975 Jun, [facility] [place] [facility] [address] [id number] [place] [address]- 7830 Jun, [facility] [place] [facility] [address] [facility] [id number] [place] [address]- 9189 May, [facility] [place] [facility] [address] [facility] [id number] [place] [address]- 4368 May, [facility] [place] [facility] [address] [id number] [place] [address]- 5334 May, [facility] [place] [facility] [address] [id number] [place] [address]- 1870 May, [facility] [place] [facility] [address] [id number] [place] [address]- 4689 May, [facility] [place] [facility] [address] [id number] [place] [address]- 4948 May, [facility] [place] [facility] [address] [id number] [place] [address]- 6816 May, [facility] [place] [facility] [address] [id number] [place] [address]- 6421 May, [facility] [place] [facility] [address] [id number] [place] [address]- 0533 February, [facility] [place] [facility] [address] [id number] [place] [address]- 0275 February, [facility] [place] [facility] [address] [id number] [place] [address]- 8144 Jan, [facility] [place] [facility] [address] [id number] [place] [address]- 2716 Jan, [facility] [place] [facility] [address] [id number] [place] [address]- 3675 Jan, [facility] [place] [facility] [address] [id number] [place] [address]- 1614 Jan, [facility] [place] [facility] [address] [id number] [place] [address]- 4250 Nov, [facility] [place] [facility] [address] [id number] [place] [address]- 2167 Nov, [facility] [place] [facility] [address] [id number] [place] [address]- 6042 Nov, [facility] [place] [facility] [address] [id number] [place] [address]- 7137 Nov, [facility] [address] [id number] [place] [address]- 0102 Sep, [facility] [address] [id number] [place] [address]- 9191 Sep, [facility] [address] [facility] [id number] [place] [address]- 3925 Sep, [facility] [address] [id number] [address]- 7823 Sep, [facility] [address] [id number] [place] [address]- 1656 Sep, [facility] [address] [facility] [id number] [address]- 2431 Sep, [facility] [address] [id number], [place] [address]- 0225 Jul, [facility] [address] [id number], [place] [address]- 5099 Jul, [facility] [address] [id number], [place] [address]- 6907 Jun, [facility] [address] [id number] [address]- 0993 Jun, [facility] [address] [id number] [address]- 0204 Jun, [facility] [address] [id number] [address]- 7924 May, [facility] [address] [place] [id number] May [facility] [address] [id number], [place] [address]- 4538 May, [facility] [address] [facility] [id number], [place] [address]- 3881 May, [facility] [address] [id number], [place] [address]- 3109 May, [facility] [address] [id number] [place] [address]- 3291 May, [facility] [place] [facility] [address] [id number] [place] [address]- 2991 May, [facility] [address] [id number] [place] [address]- 5760 Apr, [facility] [place] [facility] [address] [id number] [place] [address]- 3570 Apr, [facility] [address] [id number] [place] [address]- 9160 Apr, [facility] [address] [id number] [place] [address]- 7611 Apr, [facility] [address] [id number] [place] [address]- 8918 Mar, [facility] [place] [facility] [address] [id number] [place] [address]- 0181 February, [facility] [address] [id number] [place] [address]- 5441 Jan, [facility] [place] [facility] [address] [id number] [place] [address]- 5146 Dec, [facility] [place] [facility] [address] [id number] [place] [address]- 8641 Dec, [facility] [place] [facility] [address] [id number] [place] [address]- 1757 Dec, [facility] [place] [facility] [address] [id number] [place] [address]- 4391 Nov, [facility] [place] [facility] [address] [id number] [place] [address]- 3838 Nov, [facility] [place] [facility] [address] [facility] [id number] [place] [address]- 2263 Nov, [facility] [place] [facility] [address] [id number] [place] [address]- 6638 Oct, [facility] [place] [facility] [address] [id number] [place] [address]- 0480 Oct, [facility] [place] [facility] [address] [id number] [place] [address]- 4596 Sep, [facility] [place] [facility] [address] [id number] [place] [address]- 9036 Sep, [facility] [place] [facility] [address] [id number] [place] [address]- 8854 Sep, [facility] [place] [facility] [address] [id number] [place] [address]- 9868 Sep, [facility] [place] [facility] [address] [id number] [place] [address]- 1357 Sep, [facility] [place] [facility] [address] [id number] [place] [address]- 1546 Sep, [facility] [place] [facility] [address] [id number] [place] [address]- 1375 Aug, [facility] [place] [facility] [address] [id number] [place] [address]- 0400 Aug, [facility] [place] [facility] [address] [id number] [place] [address]- 6548 Aug, [facility] [place] [facility] [address] [id number] [place] [address]- 5423 Aug, [facility] [place] [facility] [address] [id number] [place] [address]- 4224 Aug, [facility] [place] [facility] [address] [id number] [place] [address]- 2348 Aug, [facility] [place] [facility] [address] [id number] [place] [address]- 2757 Aug, [facility] [place] [facility] [address] [id number] [place] [address]- 0563 Aug, [facility] [place] [facility] [address] [id number] [place] [address]- 9361 Aug, [facility] [place] [facility] [address] [id number] [place] [address] Aug, [facility] [place] [facility] [address] [facility] [id number] [place] [address]- 2141 Jul, [facility] [place] [facility] [address] [id number] [place] [address]- 9804 Jul, [facility] [place] [facility] [address] [id number] [place] [address]- 3729 Jul, [facility] [place] [facility] [address] [id number] [place] [address]- 8918 Jul, [facility] [place] [facility] [address] [id number] [place] [address]- 9198 Jul, [facility] [place] [facility] [address] [id number], [place] [address]- 1843 Jul, [facility] [place] [facility] [address] [id number], [place] [address]- 7670 Jul, [facility] [place] [facility] [address] [id number], [place] [address]- 7775 Jul, [facility] [place] [facility] [address] [id number], [place] [address]- 7157 18 Jul, 2012 [facility] [place] [facility] [address] [id number], [place] [address]- 8842 Jul, [facility] [place] [facility] [address] [id number] [place] [address]- 1198 Jul, [facility] [place] [facility] [address] [facility] [id number][place]- 4277 Jul, [facility] [place] [facility] [address] [id number], [place] [address]- 2887 Jul, [facility] [place] [facility] [address] [id number] [place] [address]- 3666 Jul, [facility] [address] [id number] [place] [address]- 6651 Jul, [facility] [place] [facility] [address] [id number] [place] [address]- 0062 Jun, [facility] [address] [id number] [place] [address]- 6537 24 Jun, 2012 [facility] [place] [facility] [address] [id number] [place] [address]- 7167 Jun, [facility] [address] [id number] [place] [address]- 0991 May, [facility] [address] [id number] [place] [address]- 7416 May, [facility] [address] [id number] [place] [address]- 2255 Mar, [facility] [address] [id number] [place] [address]- 3190 Mar, [facility] [address] [id number] [place] [address]- 0968 February, [facility] [address] [id number] [place] [address]- 2255 February, [facility] [address] [id number] [place] [address]- 2222 Nov, [facility] [address] [id number] [place] [address]- 4571 Oct, [facility] [place] [facility] [address] [id number] [place] [address]- 8604 Oct, [facility] [place] [facility] [address] [id number] [place] [address]- 2586 Oct, [facility] [address] [id number] [place] [address]- 2681 Aug, [facility] [address] [id number] [address]- 2546 Jul, [facility] [address], [place] [address]- 2546 Sep, [facility] [address] [place] [id number], [place] [address]- 2546 Aug, [facility] [address], [place] [address]- 2546 Jul, [facility] [address] [facility] [id number], [place] [address]- 0786 Apr, [facility] [address], [place] [address]- 2546 February, [facility] [address], [place] [address]- 1756 Sep, [facility] [address], [place] [address]- 9206 Sep, [facility] [address] [id number], [place] [address]- 5916 Sep, [facility] [address] [id number], [place] [address]- 1056 Apr, [facility] [address] [id number], [place] [address]- 2546 Mar, [facility] [id number], [place] [address]- 2546 February, [facility] [address] [id number], [place] [address]- 2546 Jan, [facility] [address] [id number], [place] [address]- 2546 Jul, IMMUNIZATIONS No Known Immunizations SOCIAL HISTORY Never Assessed REASON FOR VISIT Pain management (chronic), no additional concerns-Linda GRANADO PLAN OF CARE VITAL SIGNS Height 63 in 2017-09-26 Weight 180.3 lbs 2017-09-26 Temperature 98.8 degrees Fahrenheit 2017-09-26 Heart Rate 88 bpm 2017-09-26 Respiratory Rate 22 2017-09-26 BMI 31.94 kg/m2 2017-09-26 Blood pressure systolic 168 mmHg 2017-09-26 Blood pressure diastolic 84 mmHg 2017-09-26 MEDICATIONS Medication Instructions Dosage Frequency Start Date End Date Duration Status Protonix 40 mg Orally Once a day 1 tablet 24h 15 Sep, 2015 Active ProAir HFA 108 (90 Base) MCG/ACT Inhalation every 4 hrs 2 puffs as needed 4h 31 Jul, 2016 Active Advair Diskus 100 mcg-50 mcg Inhalation Twice a day 1 puff 12h 09 Nov, 2014 Active Melatonin 3 MG Orally at bedtime 3 tablet at bedtime as needed with food Not-Taking Reglan 10 mg Orally 4 times a day 1 tablet 6h 11 Jun, 2017 Active Aspirin 650 mg 1 Tablet by Oral route 6 times per hour Nov, Not-Taking MS Contin 30 MG 1 tablet 12h Sep, Active Flexeril 10 mg 1 tablet 12h 13 May, 2014 Active Morphine Sulfate 15 MG Orally 2 times a day 1 tablet as needed 12h 15 Sep, 2017 Active Scooter N/A as directed May, Not-Taking Phenobarbital 97.2 mg 1 tablet 24h 24 Feb, 2014 Active Metoprolol Tartrate 50 mg Orally Twice a day 1 tablet with food 12h Sep 30 day(s) Active RESULTS No Results PROCEDURES No Known procedures INSTRUCTIONS MEDICATIONS ADMINISTERED No Known Medications MEDICAL (GENERAL) HISTORY Type Description Date Medical History 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
--- OUTSIDE RECORDS SUMMARY | 2018-05-22 13:53 | XMS REPORT ---
Author Author TRACEE LANGE Organization [facility] Address [address] [place] [address] Care Team Providers Care Scissors Grinder Name Role Phone TRACEE LANGE Unavailable PROBLEMS Type Condition ICD9-CM Code [id number] Code Onset Dates Condition Status SNOMED Code Problem Thoracic neuritis M54.14 Active 27888880 Problem Intracranial injury, without loss of consciousness, subsequent encounter S06.9X0D Active 147016532 Problem Ventricular arrhythmia I49.9 Active 79702031 Problem Epileptic seizure, generalized G40.309 Active 89240539 Problem Hypertension, benign I10 Active 36043532 Problem Lumbar neuritis M54.16 Active 449247402 Problem GERD (gastroesophageal reflux disease) K21.9 Active 867717355 Problem Cardiomyopathy I42.9 Active 12667211 ALLERGIES No Known Allergies ENCOUNTERS Encounter Location Date Diagnosis [place] [address] [address] Mar, [place] [address] [address] February, Ventricular arrhythmia I49.9 [place] [address] [address]- [address] February, [place] [address] [address] Dec, Thoracic neuritis M54.14 ; Lumbar neuritis M54.16 and Epileptic seizure, generalized G40.309 [place] [address] [address] Sep, Epileptic seizure, generalized G40.309 and Lumbar neuritis M54.16 [place] [address] [address] Aug, Thoracic neuritis M54.14 and Lumbar neuritis M54.16 [place] [address] [address] Jun, [place] [address] [address] Jun, Abscess of leg, left L02.416 [place] [address] [address] May, Lumbar neuritis M54.16 ; Thoracic neuritis M54.14 ; Intracranial injury, without loss of consciousness, subsequent encounter S06.9X0D and Cardiomyopathy I42.9 [place] [address] [address]- [address] Apr, Lumbar neuritis M54.16 [place] [address] [address]- [address] Apr, [place] [address] [address] Apr, Elevated liver enzymes R74.8 and Renal insufficiency N28.9 [place] [address] [address]- [address] Apr, Lumbar neuritis M54.16 ; Thoracic neuritis M54.14 ; Hypertension, benign I10 ; Cardiomyopathy I42.9 and Epileptic seizure, generalized G40.309 [place] [address] [address]- [address] Mar, [facility] [address] [address] February, [place] [address] [address] February, Lumbar neuritis M54.16 ; Thoracic neuritis M54.14 ; Hypertension, benign I10 ; Cardiomyopathy I42.9 and Epileptic seizure, generalized G40.309 [place] [address] [address]- [address] Dec, [facility] [address] [place] [id number] [place] [address]227- 3224 Sep, Epigastric mass R19.06 [place] [address] [place] [id number] [place] [address] 84883- 0634 Sep, Epigastric mass R19.06 [place] [address] [address]- [address] Sep, [facility] [address] [address]- [address] Sep, Epigastric mass R19.06 [place] [address] [address]- [address]604 Sep, Epigastric mass R19.06 and Lung mass R91.8 [facility] [place] [address] [address] Jul, Shortness of breath R06.02 ; Dysuria R30.0 and Acute bronchitis, unspecified organism J20.9 [place] [address] [place] [id number] [place] [address]- 2543 Jul, [place] [address] [address]- [address] Jun, Seizures R56.9 ; Thoracic neuritis M54.14 ; Lumbar neuritis M54.16 and GERD (gastroesophageal reflux disease) K21.9 [facility] [address] [place] [id number] [place] [address] -[address] Jan, [place] [address] [place] [id number] [place] [address] 35552- 1035 Sep, [place] [address] [address]- [address] Sep, Intracranial injury, without loss of consciousness, subsequent encounter S06.9X0D ; Cardiomyopathy I42.9 ; GERD (gastroesophageal reflux disease) K21.9 ; Hypertension, benign I10 ; Thoracic neuritis M54.14 and Lumbar neuritis M54.16 [facility] [address] [address] Mar, [facility] [address] [place] [id number] [place] [address]- 5522 Mar, Coronary atherosclerosis of unspecified type of vessel, [place] or graft 414.00 ; Unspecified essential hypertension 401.9 ; Thoracic or lumbosacral neuritis or radiculitis, unspecified 724.4 and Other convulsions 780.39 [facility] [address] [place] [id number] [place] [address] 81263- 6122 Jan, [facility] [address] [place] [id number] [place] [address] 66476- 6072 Jan, [facility] [address] [place] [id number] [place] [address] 43387- 4825 Nov, [facility] [address] [place] [id number] [place] [address] 63869- 4388 Nov, [facility] [address] [place] [address] 90108- 1823 Nov, [facility] [address] [place] [id number] [place] [address] 44029- 9409 Nov, [facility] [address] [place] [address] 36730- 4455 Nov, [facility] [address] [place] [address] 20245- 5368 Nov, [facility] [address] [place] [address] 53063- 6147 Nov, [facility] [address] [place] [id number] [place] [address] 05576- 7200 Nov, [facility] [address] [place] [address] 814974- 3911 Nov, [facility] [address] [place] [id number] [place] [address] 81493- 7870 Nov, [facility] [place] [facility] [address] [id number] [place] [address]- 4892 Sep, [facility] [place] [facility] [address] [id number] [place] [address]- 5961 Sep, [facility] [place] [facility] [address] [facility] [id number] [place] [address]- 4073 Aug, [facility] [place] [facility] [address] [id number] [place] [address]- 3505 Aug, [facility] [place] [facility] [address] [id number] [place] [address]- 6833 Aug, [facility] [place] [facility] [address] [id number] [place] [address]- 3584 Aug, [facility] [place] [facility] [address] [facility] [id number] [place] [address]- 6260 Jul, [facility] [place] [facility] [address] [id number] [place] [address]- 1923 Jul, [facility] [place] [facility] [address] [facility] [id number] [place] [address]- 2453 Jul, [facility] [place] [facility] [address] [facility] [id number] [place] [address]- 8641 Jul, [facility] [place] [facility] [address] [id number] [place] [address]- 3840 Jun, [facility] [place] [facility] [address] [id number] [place] [address]- 6972 Jun, [facility] [place] [facility] [address] [id number] [place] [address]- 4081 Jun, [facility] [place] [facility] [address] [facility] [id number] [place] [address]- 5005 May, [facility] [place] [facility] [address] [facility] [id number] [place] [address]- 4430 May, [facility] [place] [facility] [address] [id number] [place] [address]- 1573 May, [facility] [place] [facility] [address] [id number] [place] [address]- 1120 May, [facility] [place] [facility] [address] [id number] [place] [address]- 0811 May, [facility] [place] [facility] [address] [id number] [place] [address]- 8505 May, [facility] [place] [facility] [address] [id number] [place] [address]- 0478 May, [facility] [place] [facility] [address] [id number] [place] [address]- 1735 May, [facility] [place] [facility] [address] [id number] [place] [address]- 0977 February, [facility] [place] [facility] [address] [id number] [place] [address]- 3496 February, [facility] [place] [facility] [address] [id number] [place] [address]- 4121 Jan, [facility] [place] [facility] [address] [id number] [place] [address]- 9576 Jan, [facility] [place] [facility] [address] [id number] [place] [address]- 9355 Jan, [facility] [place] [facility] [address] [id number] [place] [address]- 0451 Jan, [facility] [place] [facility] [address] [id number] [place] [address]- 9209 Nov, [facility] [place] [facility] [address] [id number] [place] [address]- 7669 Nov, [facility] [place] [facility] [address] [id number] [place] [address]- 7021 Nov, [facility] [place] [facility] [address] [id number] [place] [address]- 5930 Nov, [facility] [address] [id number] [place] [address]- 0629 Sep, [facility] [address] [id number] [place] [address]- 4729 Sep, [facility] [address] [facility] [id number] [place] [address]- 1074 Sep, [facility] [address] [id number] [address]- 6258 Sep, [facility] [address] [id number] [place] [address]- 7849 Sep, [facility] [address] [facility] [id number] [address]- 2473 Sep, [facility] [address] [id number] [address]- 0636 Jul, [facility] [address] [id number] [address]- 4048 Jul, [facility] [place] [address] [id number] [address]- 1887 Jun, [facility] [address] [id number] [address]- 0691 Jun, [facility] [address] [id number] [address]- 0703 Jun, [facility] [address] [id number] [address]- [address] May, [address] [facility] [address] [place] [id number] May [facility] [address] [id number] [address]- 8830 May, [facility] [address] [facility] [id number] [address]- 3653 May, [facility] [address] [id number] [address]- 8028 May, [facility] [address] [id number] [place] [address]- 3621 May, [facility] [place] [facility] [address] [id number] [place] [address]- 4674 May, [facility] [address] [id number] [place] [address]- 1363 Apr, [facility] [place] [facility] [address] [id number] [place] [address]- 8754 Apr, [facility] [address] [id number] [place] [address]- 3914 Apr, [facility] [address] [id number] [place] [address]- 7365 Apr, [facility] [address] [id number] [place] [address]- 2028 Mar, [facility] [place] [facility] [address] [id number] [place] [address]- 9994 February, [facility] [address] [id number] [place] [address]- 8619 Jan, [facility] [place] [facility] [address] [id number] [place] [address]- 7395 Dec, [facility] [place] [facility] [address] [id number] [place] [address]- 9347 Dec, [facility] [place] [facility] [address] [id number] [place] [address]- 7544 Dec, [facility] [place] [facility] [address] [id number] [place] [address]- 6695 Nov, [facility] [place] [facility] [address] [id number] [place] [address]- 2924 Nov, [facility] [place] [facility] [address] [facility] [id number] [place] [address]- 3893 Nov, [facility] [place] [facility] [address] [id number] [place] [address]- 5113 Oct, [facility] [place] [facility] [address] [id number] [place] [address]- 8047 Oct, [facility] [place] [facility] [address] [id number] [place] [address]- 5216 Sep, [facility] [place] [facility] [address] [id number] [place] [address]- 9576 Sep, [facility] [place] [facility] [address] [id number] [place] [address]- 9376 Sep, [facility] [place] [facility] [address] [id number] [place] [address]- 5332 Sep, [facility] [place] [facility] [address] [id number] [place] [address]- 7598 Sep, [facility] [place] [facility] [address] [id number] [place] [address]- 5955 Sep, [facility] [place] [facility] [address] [id number] [place] [address]- 7071 Aug, [facility] [place] [facility] [address] [id number] [place] [address]- 5884 Aug, [facility] [place] [facility] [address] [id number] [place] [address]- 1343 Aug, [facility] [place] [facility] [address] [id number] [place] [address]- 2254 Aug, [facility] [place] [facility] [address] [id number] [place] [address]- 1546 Aug, [facility] [place] [facility] [address] [id number] [place] [address]- 6971 Aug, [facility] [place] [facility] [address] [id number] [place] [address]- 5853 Aug, [facility] [place] [facility] [address] [id number] [place] [address]- 6587 Aug, [facility] [place] [facility] [address] [id number] [place] [address]- 6470 Aug, [facility] [place] [facility] [address] [id number] [place] [address] Aug, [facility] [place] [facility] [address] [facility] [id number] [place] [address]- 0914 Jul, [facility] [place] [facility] [address] [id number] [place] [address]- 9806 Jul, [facility] [place] [facility] [address] [id number] [place] [address]- 2282 Jul, [facility] [place] [facility] [address] [id number] [place] [address]- 0351 Jul, [facility] [place] [facility] [address] [id number] [place] [address]- 0325 Jul, [facility] [place] [facility] [address] [id number] [address]- 1521 Jul, [facility] [place] [facility] [address] [id number] [address]- 3217 Jul, [facility] [place] [facility] [address] [id number] [address]- 4171 Jul, [facility] [place] [facility] [address] [id number] [address]- 5677 18 Jul, 2012 [facility] [place] [facility] [address] [id number][place] [address]- 0588 Jul, [facility] [place] [facility] [address] [id number] [place] [address]- 4973 Jul, [facility] [place] [facility] [address] [facility] [id number] 6[address] Jul, [facility] [place] [facility] [address] [id number][place] [address]- 3578 Jul, [facility] [place] [facility] [address] [id number] [place] [address]- 7486 Jul, [facility] [address] [id number] [place] [address]- 5774 Jul, [facility] [place] [facility] [address] [id number] [place] [address]- 6906 Jun, [facility] [address] [id number] [place] [address]- 5303 24 Jun, 2012 [facility] [place] [facility] [address] [id number] [place] [address]- 9882 Jun, [facility] [address] [id number] [place] [address]- 5384 May, [facility] [address] [id number] [place] [address]- 6396 May, [facility] [address] [id number] [place] [address]- 6859 Mar, [facility] [address] [id number] [place] [address]- 7648 Mar, [facility] [address] [id number] [place] [address]- 4856 February, [facility] [address] [id number] [place] [address]- 3930 February, [facility] [address] [id number] [place] [address]- 7906 Nov, [facility] [address] [id number] [place] [address]- 6908 Oct, [facility] [place] [facility] [address] [id number] [place] [address]- 6913 Oct, [facility] [place] [facility] [address] [id number] [place] [address]- 7566 Oct, [facility] [address] [id number] [place] [address]- 9779 Aug, [facility] [address] [facility] [id number] [address]- 3326 Jul, [facility] [address] [facility] [id number] [address]- 2546 Sep, [facility] [address] [facility] [id number] [address]- 4276 Aug, [facility] [address] [facility] [id number] [address]- 5636 Jul, [facility] [address] [facility] [id number] [address]- 6480 Apr, [facility] [address] [id number] [address]- 2946 February, [facility] [address] [address]- 3886 Sep, [facility] [address] [address]- 8336 Sep, [facility] [address] [address]- 5056 Sep, [facility] [address] [address]- 8806 Apr, [facility] [address] [id number] [address]- 4286 Mar, [facility] [address] [id number] [address]- 8656 February, [facility] [address] [id number] [address]- 5816 Jan, [facility] [address] [id number] [address]- 5726 Jul, IMMUNIZATIONS Vaccine Route Administration Date Status PHENERGAN (IM) 25 MG (25 MG/ML) IM Intramuscular Aug 15, 2017 Administered TORADOL (IM) 60 MG/2ML (UP TO 15 MG) IM Intramuscular Aug 15, 2017 Administered SOCIAL HISTORY Never Assessed REASON FOR VISIT thoracic neuritis--Ulises GRANADO PLAN OF CARE VITAL SIGNS Height 63 in 2017-08-15 Weight 187.1 lbs 2017-08-15 Temperature 97.7 degrees Fahrenheit 2017-08-15 Heart Rate 86 bpm 2017-08-15 Respiratory Rate 22 2017-08-15 BMI 33.14 kg/m2 2017-08-15 Blood pressure systolic 132 mmHg 2017-08-15 Blood pressure diastolic 80 mmHg 2017-08-15 MEDICATIONS Medication Instructions Dosage Frequency Start Date End Date Duration Status Flexeril 10 mg 1 tablet 12h 13 May, 2014 Active Reglan 10 mg Orally 4 times a day 1 tablet 6h 11 Jun, 2017 Active Promethazine HCl 6.25 MG/5ML Orally every 6 hrs 10 ml as needed 6h Aug, Sep, 30 day(s) Active Morphine Sulfate 15 MG Orally 2 times a day 1 tablet as needed 12h Aug, Active Advair Diskus 100 mcg-50 mcg Inhalation Twice a day 1 puff 12h 09 Nov, 2014 Active Metoprolol Tartrate 50 mg Orally Twice a day 1 tablet with food 12h Sep 30 day(s) Active Phenobarbital 97.2 mg 1 tablet 24h 24 Feb, 2014 Active Melatonin 3 MG Orally at bedtime 3 tablet at bedtime as needed with food Active Scooter N/A as directed May, Active Aspirin 650 mg 1 Tablet by Oral route 6 times per hour Nov, Active MS Contin 30 MG 1 tablet 12h Aug, Active ProAir HFA 108 (90 Base) MCG/ACT Inhalation every 4 hrs 2 puffs as needed 4h 31 Jul, 2016 Active Protonix 40 mg Orally Once a day 1 tablet 24h Sep, Active RESULTS No Results PROCEDURES Procedure Date Ordered Result Body Site PHENERGAN (IM) 25 MG (25 MG/ML) Aug 15, 2017 TORADOL (IM) 60 MG/2ML (UP TO 15 MG) Aug 15, 2017 THER/PROPH/DIAG INJ, SC/IM Aug 15, 2017 INSTRUCTIONS MEDICATIONS ADMINISTERED No Known Medications MEDICAL (GENERAL) HISTORY Type Description Date Medical History 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
--- OUTSIDE RECORDS SUMMARY | 2018-05-22 14:06 | XMS REPORT | Continuity of Care Document ---
Demographics Preferred Language Unknown Marital Status Unknown Anabaptism Affiliation Unknown Race Unknown Ethnic Group Unknown Author Author [facility] Address Unknown Phone Unavailable Allergies Active Description Code Type Severity Reaction Onset Reported/Identified Relationship to Patient Clinical Status Yes nitrous oxide [id number] Drug Allergy Unknown N/A 06/08/2007 Yes AILEEN Inhibitors [id number] Drug Allergy Unknown N/A 05/25/2014 Medications There [...] PRECIADO MD 840.9 SPRAIN/STRAIN SHOULDER/ARM 02/14/2010 KRANTHI PERCIADO MD 789.00 Abdominal Pain Unspecified Site 02/14/2010 [...] 327.23 OBSTRUCTIVE SLEEP APNEA (ADULT) (PEDIATRIC) 01/07/2011 TRAECE LANGE APRN 327.23 OBSTRUCTIVE SLEEP APNEA (ADULT) [...] APRN 790.29 PREDIABETES (IMPAIRED GLUCOSE TOLERANCE) 03/25/2011 TRAECE LANGE APRN 790.29 PREDIABETES (IMPAIRED GLUCOSE TOLERANCE) 03/25/2011 TRACEE LANGE APRN 790.29 PREDIABETES (IMPAIRED GLUCOSE TOLERANCE) 03/25/2011 DEGROOT DO, GAVI K 790.29 PREDIABETES (IMPAIRED GLUCOSE TOLERANCE) 03/25/2011 DEGROOT DO, GAVI K 790.29 PREDIABETES (IMPAIRED GLUCOSE TOLERANCE) 03/25/2011 TRACEE LANGE APRN 790.29 PREDIABETES (IMPAIRED GLUCOSE TOLERANCE) 03/25/2011 TRACEE LANGE APRN 790.29 PREDIABETES (IMPAIRED GLUCOSE TOLERANCE) 03/25/2011 KRANTHI PERCIADO MD 790.29 PREDIABETES (IMPAIRED GLUCOSE TOLERANCE) 04/10/2011 [...] K 496 CHRONIC OBSTRUCTIVE PULMONARY DISEASE 04/10/2011 TRCAEE LANGE APRN T 462 Sore Throat 04/10/2011 [...] PRECIADO MD 530.81 ESOPHAGEAL REFLUX 10/23/2011 TRACEE ALNGE APRN 401.9 ESSENTIAL HYPERTENSION 10/23/2011 TRACEE LANGE APRN T 530.81 ESOPHAGEAL REFLUX 10/23/2011 RTACEE LANGE APRN T 401.9 ESSENTIAL HYPERTENSION 10/23/2011 [...] 789.03 ABDOMINAL PAIN RIGHT LOWER QUADRANT 07/29/2012 AGVI DEGROOT DO 070.70 HEPATITIS C, UNSPEC 07/29/2012 [...] NOS 08/04/2012 Ot 414.01 CORONARY ATHEROSCLEROSIS OF [place] CORON 08/04/2012 Ot 496 CHR AIRWAY OBSTRUCT [...] DO 788.30 URINARY INCONTINENCE UNSPECIFIED 09/16/2012 ANISA TENANT COORDINATOR, TRACEE T 788.30 URINARY INCONTINENCE UNSPECIFIED 09/16/2012 [...] NOS 12/20/2012 Ot 414.01 CORONARY ATHEROSCLEROSIS OF [place] CORON 12/20/2012 Ot 486 PNEUMONIA, ORGANISM NOS [...] DEGROOT DO, GAVI K 276.7 HYPERKALEMIA 12/21/2012 RTACEE LANGE APRN 276.7 HYPERKALEMIA 12/21/2012 TRACEE LANGE [...] CASTILLO MD Ot 414.01 CORONARY ATHEROSCLEROSIS OF [place] CORON 05/11/2013 NGOC CASTILLO MD Ot 425.4 [...] TRACEE LANGE APRN 425.4 CARDIOMYOPHATHY 05/21/2013 ANISA TENANT COORDINATOR, TRACEE T 854.00 INTRACRANIAL INJURY OF OTHER AND UNSPECIFIED NATURE WITHOUT OPEN INTRACRANIAL WOUND WITH STATE OF CONSCIOUSNESS UNSPECIFIED 05/21/2013 DEGROOT DO, GAVI K 414.00 CAD 05/21/2013 DGEROOT DO, GAVI K 425.4 CARDIOMYOPHATHY 05/21/2013 DEGROOT [...] DEGROOT DO Ot 414.01 CORONARY ATHEROSCLEROSIS OF [place] CORON 06/24/2013 GAVI DEGROOT DO Ot 425.4 [...] AMANDA MD Ot 414.01 CORONARY ATHEROSCLEROSIS OF [place] CORON 09/14/2013 ABELARDO AMANDA MD Ot 425.4 [...] OBSTRUCTIVE PULMONARY DISEASE, U 02/13/2016 KAILA DO, HOAL K Ot K52.9 NONINFECTIVE GASTROENTERITIS AND COLITIS [...] MARIN BRIGHT DOA K Ot Z79.899 OTHER GROUP HOME (CURRENT) DRUG THERAPY 08/05/2016 KAILA LANGE HOLA [...] MD Ot I25.10 ATHSCL HEART DISEASE OF [place] CORONARY 11/23/2016 QUIN JONES MD Ot J44.9 CHRONIC OBSTRUCTIVE PULMONARY DISEASE, U 11/23/2016 QUIN JONES MD Ot R05 COUGH 11/23/2016 QUIN JONES MD Ot Z79.899 OTHER GROUP HOME (CURRENT) DRUG THERAPY 11/26/2016 QUIN JONES MD Ot I25.10 ATHSCL HEART DISEASE OF [place] CORONARY 11/26/2016 QUIN JONES MD Ot J44.9 CHRONIC OBSTRUCTIVE PULMONARY DISEASE, U 11/26/2016 QUIN JONES MD Ot R05 COUGH 11/26/2016 QUIN JONES MD Ot Z79.899 OTHER GROUP HOME (CURRENT) DRUG THERAPY 12/26/2016 KAILA DO, HOLA [...] 12/26/2016 KAILA HOLA K Ot Z79.899 OTHER BRIDAL SALES CONSULTANT (CURRENT) DRUG THERAPY 12/26/2016 KAILA HOLA K [...] MD Ot I25.10 ATHSCL HEART DISEASE OF [place] CORONARY 03/06/2017 QUIN JONES MD Ot J44.9 CHRONIC OBSTRUCTIVE PULMONARY DISEASE, U 03/06/2017 QUIN JONES MD Ot K59.00 CONSTIPATION, UNSPECIFIED 03/06/2017 QUIN JONES MD Ot R10.30 LOWER ABDOMINAL PAIN, UNSPECIFIED 03/06/2017 QUIN JONES MD Ot Z79.899 OTHER BRIDAL SALES CONSULTANT (CURRENT) DRUG THERAPY 03/06/2017 ABELARDO AMANDA MD Ot 397.0 TRICUSPID VALVE DISEASE 03/06/2017 ABELARDO AMANDA MD Ot 424.0 MITRAL VALVE DISORDER 03/06/2017 ABELARDO AMANDA MD Ot 428.0 CONGESTIVE HEART FAILURE NOS 03/06/2017 ABELARDO AMANDA MD Ot 428.0 CONGESTIVE HEART FAILURE NOS 03/07/2017 QUIN JONES MD Ot I16.0 HYPERTENSIVE URGENCY 03/07/2017 QUIN JONES MD, Ot I25.10 ATHSCL HEART DISEASE OF [place] CORONARY 03/07/2017 QUIN JONES MD Ot J44.9 CHRONIC OBSTRUCTIVE PULMONARY DISEASE, U 03/07/2017 QUIN JONES MD Ot K59.00 CONSTIPATION, UNSPECIFIED 03/07/2017 QUIN JONES MD Ot R10.30 LOWER ABDOMINAL PAIN, UNSPECIFIED 03/07/2017 QUIN JONES MD, Ot Z79.899 OTHER GROUP HOME (CURRENT) DRUG THERAPY 06/18/2017 ABELARDO AMANDA MD [...] ORTIZ Ot I25.10 ATHSCL HEART DISEASE OF [place] CORONARY 06/18/2017 STAR ORTIZ Ot I25.2 OLD [...] MD Ot I25.10 ATHSCL HEART DISEASE OF [place] CORONARY 02/04/2018 MICHAEL BURRELL MD Ot I25.2 OLD MYOCARDIAL INFARCTION 02/04/2018 MICHAEL BURRELL MD Ot I73.9 PERIPHERAL VASCULAR DISEASE, UNSPECIFIED 02/04/2018 MICHAEL UBRRELL MD Ot J43.9 EMPHYSEMA, UNSPECIFIED 02/04/2018 MICHAEL BURRELL MD Ot K21.9 GASTRO-ESOPHAGEAL REFLUX DISEASE WITHOUT 02/04/2018 MICHAEL BURRELL MD Ot R07.89 OTHER CHEST PAIN 02/04/2018 MICHAEL BURRELL MD Ot R07.9 CHEST PAIN, UNSPECIFIED 02/04/2018 MICHAEL BURRELL MD Ot R56.9 UNSPECIFIED CONVULSIONS 02/04/2018 MICHAEL BURRELL MD Ot Z79.51 BRIDAL SALES CONSULTANT (CURRENT) USE OF INHALED STERO 02/04/2018 MICHAEL BURRELL MD Ot Z79.52 GROUP HOME (CURRENT) USE OF SYSTEMIC STER 02/04/2018 MICHAEL [...] MD Ot I25.10 ATHSCL HEART DISEASE OF [place] CORONARY 02/05/2018 MICHAEL BURRELL MD Ot I25.2 [...] CONVULSIONS 02/05/2018 MICHAEL BURRELL MD Ot Z79.51 GROUP HOME (CURRENT) USE OF INHALED STERO 02/05/2018 MICHAEL BURRELL MD Ot Z79.52 BRIDAL SALES CONSULTANT (CURRENT) USE OF SYSTEMIC STER 02/05/2018 MICHAEL [...] BURRELL MD Ot Z88.8 ALLERGY STATUS TO [facility] DRUG/MEDS/BIOL SUB 02/05/2018 MICHAEL BURRELL MD Ot Z90.49 ACQUIRED ABSENCE OF OTHER SPECIFIED PART 02/05/2018 MICHAEL BURRELL MD Ot Z90.710 ACQUIRED ABSENCE OF BOTH CERVIX AND UTER 02/05/2018 MICHAEL BURRELL MD Ot Z90.89 ACQUIRED ABSENCE OF OTHER ORGANS 02/24/2018 GAVI DEGROOT DO Ot G40.909 EPILEPSY, UNSP, NOT INTRACTABLE, WITHOUT 02/24/2018 GAVI DEGROTO DO Ot G89.29 OTHER CHRONIC PAIN 02/24/2018 GAVI DEGROOT DO Ot I12.9 HYPERTENSIVE CHRONIC KIDNEY DISEASE W ST 02/24/2018 GAVI DEGROOT DO Ot I25.10 ATHSCL HEART DISEASE OF [place] CORONARY 02/24/2018 GAVI DEGROOT DO Ot I27.20 PULMONARY HYPERTENSION, UNSPECIFIED 02/24/2018 GAVI DEGROOT DO Ot I34.0 NONRHEUMATIC MITRAL (VALVE) INSUFFICIENC 02/24/2018 GAVI DEGROOT DO Ot I42.0 DILATED CARDIOMYOPATHY 02/24/2018 GAVI DEGROOT DO Ot I50.21 ACUTE SYSTOLIC (CONGESTIVE) HEART FAILUR 02/24/2018 GAVI DEGROOT DO Ot N18.9 CHRONIC KIDNEY DISEASE, UNSPECIFIED 02/24/2018 GAVI DEGROOT DO Ot Z79.899 OTHER GROUP HOME (CURRENT) DRUG THERAPY 02/24/2018 GAVI DEGROOT DO Ot G40.909 EPILEPSY, UNSP, NOT INTRACTABLE, WITHOUT 02/24/2018 GAVI DEGROOT DO Ot G89.29 OTHER CHRONIC PAIN 02/24/2018 GAVI DEGROOT DO Ot I12.9 HYPERTENSIVE CHRONIC KIDNEY DISEASE W ST 02/24/2018 GAVI DEGROOT DO Ot I25.10 ATHSCL HEART DISEASE OF [place] CORONARY 02/24/2018 GAVI DEGROOT DO Ot I27.20 PULMONARY HYPERTENSION, UNSPECIFIED 02/24/2018 GAVI DEGROOT DO Ot I34.0 NONRHEUMATIC MITRAL (VALVE) INSUFFICIENC 02/24/2018 GAVI DEGROOT DO Ot I42.0 DILATED CARDIOMYOPATHY 02/24/2018 GAVI DEGROOT DO Ot I50.21 ACUTE SYSTOLIC (CONGESTIVE) HEART FAILUR 02/24/2018 GAVI DEGROOT DO Ot N18.9 CHRONIC KIDNEY DISEASE, UNSPECIFIED 02/24/2018 GAVI DEGROOT DO Ot Z79.899 OTHER BRIDAL SALES CONSULTANT (CURRENT) DRUG THERAPY Procedures Code Description Performed By Performed On 38.93 VENOUS CATHETERIZATION NEC 02/05/2010 53.69 OTH OPEN REP OTH HERNIA OF ANTER ABD W 02/05/2010 Urology [place] 09/16/2012 General S [place] 10/28/2012 85624 ROUTINE VENIPUNCTURE 12/09/2012 45852 CMP 12/09/2012 11740 PHENOBARBITAL 12/09/2012 42892 TSH 12/09/2012 17781 CBC 12/09/2012 PODIATRY CURT [place] 03/02/2013 37.22 LEFT HEART CARDIAC CATH 05/10/2013 88.53 LT HEART ANGIOCARDIOGRAM 05/10/2013 88.56 CORONAR ARTERIOGR-2 CATH 05/10/2013 86640 ECHO 2D 05/21/2013 86.04 OTHER SKIN SUBQ I D 06/20/2013 Physical Wound Care, [facility] 06/29/[address] ABDOMEN & PELVIS W/ & W/ O CONTRAST 12/10/2013 33229 OXIMETRY 12/10/2013 36722 ROUTINE VENIPUNCTURE 08/05/2014 32840 CBC 08/05/2014 [id number] GFR CALC (RESULT ONLY) 08/05/2014 86622 CMP 08/05/2014 88750 OXIMETRY 11/28/2014 J1885 TORADOL PER 15 MG, INJ KETOROLAC TROMETHAMINE 11/28/2014 82295 EAR LAVAGE 02/02/2015 Results Test Result Range [...] culture - 08/05/16 21:25 Bacterial urine culture [id number] NRG COLONY COUNT >100,000/ML NRG FTX;REPORTABLE SENSITIVITY REPORTED 08/07/16 8:10 NRG Bacterial susceptibility panel - 08/05/16 21:25 Gentamicin [...] susceptibility test by minimum inhibitory concentration - NRG BUN - 09/17/16 09:45 BUN 24 mg/dL 6-24 Creatinine, Serum - 09/17/16 09:45 Creatinine, Serum 1.38 mg/dL 0.57-1.00 eGFR If NonAfricn Am 43 mL/min/1.73 >59 eGFR If Africn Am 50 mL/min/1.73 >59 Influenza virus A and B antigen detection - 11/23/16 14:40 FLU RESULT NEGATIVE FOR INFLUENZA A AND B ANTIGENS BY ID NR Complete blood count (CBC) with automated white [...] x10E3/uL 0.0-0.1 Comp. Metabolic Panel (14) - 07/17/17 10:56 Glucose, Serum 96 mg/dL 65-99 BUN [...] NO NRG Urine drug screening test - 02/20/18 21:23 Urine phencyclidine detection by screening method NEGATIVE NEGATIVE Urine benzodiazepines detection by screening method NEGATIVE NEGATIVE Urine cocaine detection NEGATIVE NEGATIVE Urine amphetamines detection by screening method NEGATIVE NEGATIVE Urine methamphetamine detection by screening method NEGATIVE NEGATIVE Urine cannabinoids detection by screening method NEGATIVE NEGATIVE Urine opiates detection by screening method POSITIVE NEGATIVE Urine barbiturates detection POSITIVE NEGATIVE Screening urine tricyclic antidepressants detection NEGATIVE NEGATIVE Urine methadone detection by screening method NEGATIVE NEGATIVE Urine oxycodone detection NEGATIVE NEGATIVE Urine propoxyphene detection NEGATIVE NEGATIVE Complete blood count (CBC) with automated white blood cell (WBC) differential - 02/21/18 05:10 Blood leukocytes automated count (number/volume) 10.7 10*3/uL 4.3-11.0 Blood erythrocytes automated count (number/volume) 4.04 10*6/uL 4.35-5.85 Venous blood hemoglobin measurement (mass/volume) 12.0 g/dL 11.5-16.0 Blood hematocrit (volume fraction) 36 % 35-52 Automated erythrocyte mean corpuscular volume 89 [foz_us] 80-99 Automated erythrocyte mean corpuscular hemoglobin (mass per erythrocyte) 30 pg 25-34 Automated erythrocyte mean corpuscular hemoglobin concentration measurement ( mass/volume) 33 g/dL 32-36 Automated erythrocyte distribution width ratio 14.8 % 10.0-14.5 Automated blood platelet count (count/volume) 290 10*3/uL 130-400 Automated blood platelet mean volume measurement 10.4 [foz_us] 7.4-10.4 Automated blood neutrophils/100 leukocytes 85 % 42-75 Automated blood lymphocytes/100 leukocytes 10 % 12-44 Blood monocytes/100 leukocytes 5 % 0-12 Automated blood eosinophils/100 leukocytes 1 % 0-10 Automated blood basophils/100 leukocytes 0 % 0-10 Blood neutrophils automated count (number/volume) 9.0 10*3 1.8-7.8 Blood lymphocytes automated count (number/volume) 1.0 10*3 1.0-4.0 Blood monocytes automated count (number/volume) 0.5 10*3 0.0-1.0 Automated eosinophil count 0.1 10*3/uL 0.0-0.3 Automated blood basophil count (count/volume) 0.0 10*3/uL 0.0-0.1 Comprehensive metabolic panel - 02/21/18 05:10 Serum or plasma sodium measurement (moles/volume) 140 mmol/L 135-145 Serum or plasma potassium measurement (moles/volume) 3.8 mmol/L 3.6-5.0 Serum or plasma chloride measurement (moles/volume) 105 mmol/L 98-107 Carbon dioxide 24 mmol/L 21-32 Serum or plasma anion gap determination (moles/volume) 11 mmol/L 5-14 Serum or plasma urea nitrogen measurement (mass/volume) 19 mg/dL 7-18 Serum or plasma creatinine measurement (mass/volume) 1.09 mg/dL 0.60-1.30 Serum or plasma urea nitrogen/creatinine mass ratio 17 NRG Serum or plasma creatinine measurement with calculation of estimated glomerular filtration rate 52 NRG Serum or plasma glucose measurement (mass/volume) 100 mg/dL 70-105 Serum or plasma calcium measurement (mass/volume) 8.9 mg/dL 8.5-10.1 Serum or plasma total bilirubin measurement (mass/volume) 0.6 mg/dL 0.1-1.0 Serum or plasma alkaline phosphatase measurement (enzymatic activity/volume) 55 U/L 40-136 Serum or plasma aspartate aminotransferase measurement (enzymatic activity/ volume) 15 U/L 5-34 Serum or plasma alanine aminotransferase measurement (enzymatic activity/volume ) 15 U/L 0-55 Serum or plasma protein measurement (mass/volume) 7.2 g/dL 6.4-8.2 Serum or plasma albumin measurement (mass/volume) 3.8 g/dL 3.2-4.5 Serum or plasma troponin i.cardiac measurement (mass/volume) - 02/21/18 05:10 Serum or plasma troponin i.cardiac measurement (mass/volume) 0.36 ng /mL <0.30 Myoglobin, serum - 02/21/18 05:10 Myoglobin, serum 55.9 ng/mL 10.0-92.0 Lipid 1996 panel - 02/21/18 05:10 Serum or plasma triglyceride measurement (mass/volume) 57 mg/dL <150 Serum or plasma cholesterol measurement (mass/volume) 186 mg/dL < 200 Serum or plasma cholesterol in HDL measurement (mass/volume) 63 mg/ dL 40-60 Cholesterol in LDL [mass/volume] in serum or plasma by direct assay 103 mg/dL 1-129 Serum or plasma cholesterol in VLDL measurement (mass/volume) 11 mg/ dL 5-40 Serum or plasma lithium measurement (moles/volume) - 02/21/18 16:45 BNP level 1517.6 pg/mL <100.0 Complete blood count (CBC) with automated white blood cell (WBC) differential - 02/23/18 04:00 Blood leukocytes automated count (number/volume) 6.4 10*3/uL 4.3-11.0 Blood erythrocytes automated count (number/volume) 4.10 10*6/uL 4.35-5.85 Venous blood hemoglobin measurement (mass/volume) 12.1 g/dL 11.5-16.0 Blood hematocrit (volume fraction) 36 % 35-52 Automated erythrocyte mean corpuscular volume 89 [foz_us] 80-99 Automated erythrocyte mean corpuscular hemoglobin (mass per erythrocyte) 30 pg 25-34 Automated erythrocyte mean corpuscular hemoglobin concentration measurement ( mass/volume) 33 g/dL 32-36 Automated erythrocyte distribution width ratio 14.7 % 10.0-14.5 Automated blood platelet count (count/volume) 312 10*3/uL 130-400 Automated blood platelet mean volume measurement 10.6 [foz_us] 7.4-10.4 Automated blood neutrophils/100 leukocytes 59 % 42-75 Automated blood lymphocytes/100 leukocytes 30 % 12-44 Blood monocytes/100 leukocytes 6 % 0-12 Automated blood eosinophils/100 leukocytes 4 % 0-10 Automated blood basophils/100 leukocytes 0 % 0-10 Blood neutrophils automated count (number/volume) 3.8 10*3 1.8-7.8 Blood lymphocytes automated count (number/volume) 1.9 10*3 1.0-4.0 Blood monocytes automated count (number/volume) 0.4 10*3 0.0-1.0 Automated eosinophil count 0.3 10*3/uL 0.0-0.3 Automated blood basophil count (count/volume) 0.0 10*3/uL 0.0-0.1 Whole blood basic metabolic panel - 02/23/18 04:00 Serum or plasma sodium measurement (moles/volume) 139 mmol/L 135-145 Serum or plasma potassium measurement (moles/volume) 4.1 mmol/L 3.6-5.0 Serum or plasma chloride measurement (moles/volume) 103 mmol/L 98-107 Carbon dioxide 24 mmol/L 21-32 Serum or plasma anion gap determination (moles/volume) 12 mmol/L 5-14 Serum or plasma urea nitrogen measurement (mass/volume) 27 mg/dL 7-18 Serum or plasma creatinine measurement (mass/volume) 1.30 mg/dL 0.60-1.30 Serum or plasma urea nitrogen/creatinine mass ratio 21 NRG Serum or plasma creatinine measurement with calculation of estimated glomerular filtration rate 42 NRG Serum or plasma glucose measurement (mass/volume) 105 mg/dL 70-105 Serum or plasma calcium measurement (mass/volume) 8.8 mg/dL 8.5-10.1 Complete blood count (CBC) with automated white blood cell (WBC) differential - 05/14/18 14:49 Blood leukocytes automated count (number/volume) 12.0 10*3/uL 4.3-11.0 Blood erythrocytes automated count (number/volume) 3.32 10*6/uL 4.35-5.85 Venous blood hemoglobin measurement (mass/volume) 10.2 g/dL 11.5-16.0 Blood hematocrit (volume fraction) 30 % 35-52 Automated erythrocyte mean corpuscular volume 90 [foz_us] 80-99 Automated erythrocyte mean corpuscular hemoglobin (mass per erythrocyte) 31 pg 25-34 Automated erythrocyte mean corpuscular hemoglobin concentration measurement ( mass/volume) 34 g/dL 32-36 Automated erythrocyte distribution width ratio 15.1 % 10.0-14.5 Automated blood platelet count (count/volume) 345 10*3/uL 130-400 Automated blood platelet mean volume measurement 10.3 [foz_us] 7.4-10.4 Automated blood neutrophils/100 leukocytes 87 % 42-75 Automated blood lymphocytes/100 leukocytes 7 % 12-44 Blood monocytes/100 leukocytes 5 % 0-12 Automated blood eosinophils/100 leukocytes 1 % 0-10 Automated blood basophils/100 leukocytes 0 % 0-10 Blood neutrophils automated count (number/volume) 10.4 10*3 1.8-7.8 Blood lymphocytes automated count (number/volume) 0.8 10*3 1.0-4.0 Blood monocytes automated count (number/volume) 0.6 10*3 0.0-1.0 Automated eosinophil count 0.1 10*3/uL 0.0-0.3 Automated blood basophil count (count/volume) 0.0 10*3/uL 0.0-0.1 Blood manual differential performed detection - 05/14/18 14:49 Blood monocytes/100 leukocytes 2 % NRG Manual blood segmented neutrophils/100 leukocytes 88 % NRG Blood band neutrophils/100 leukocytes 0 % NRG Manual blood lymphocytes/100 leukocytes 10 % NRG Manual eosinophils/100 leukocytes in nose 0 % NRG Manual blood basophils/100 leukocytes 0 % NRG Blood erythrocyte morphology finding identification NORMAL NR Comprehensive metabolic panel - 05/14/18 14:49 Serum or plasma sodium measurement (moles/volume) 124 mmol/L 135-145 Serum or plasma potassium measurement (moles/volume) 5.0 mmol/L 3.6-5.0 Serum or plasma chloride measurement (moles/volume) 87 mmol/L 98-107 Carbon dioxide 22 mmol/L 21-32 Serum or plasma anion gap determination (moles/volume) 15 mmol/L 5-14 Serum or plasma urea nitrogen measurement (mass/volume) 63 mg/dL 7-18 Serum or plasma creatinine measurement (mass/volume) 4.00 mg/dL 0.60-1.30 Serum or plasma urea nitrogen/creatinine mass ratio 16 NRG Serum or plasma creatinine measurement with calculation of estimated glomerular filtration rate 12 NRG Serum or plasma glucose measurement (mass/volume) 115 mg/dL 70-105 Serum or plasma calcium measurement (mass/volume) 8.7 mg/dL 8.5-10.1 Serum or plasma total bilirubin measurement (mass/volume) 0.4 mg/dL 0.1-1.0 Serum or plasma alkaline phosphatase measurement (enzymatic activity/volume) 93 U/L 40-136 Serum or plasma aspartate aminotransferase measurement (enzymatic activity/ volume) 35 U/L 5-34 Serum or plasma alanine aminotransferase measurement (enzymatic activity/volume ) 28 U/L 0-55 Serum or plasma protein measurement (mass/volume) 7.1 g/dL 6.4-8.2 Serum or plasma albumin measurement (mass/volume) 4.0 g/dL 3.2-4.5 Ammonia - 05/14/18 14:49 Ammonia 40 umol/L 11-32 Serum or plasma salicylates measurement (mass/volume) - 05/14/18 14:49 Serum or plasma salicylates measurement (mass/volume) < mg/dL 5.0-20.0 Serum or plasma acetaminophen measurement (mass/volume) - 05/14/18 14:49 Serum or plasma acetaminophen measurement (mass/volume) < ug/mL 10-30 Serum or plasma ethanol measurement (mass/volume) - 05/14/18 14:49 Serum or plasma ethanol measurement (mass/volume) < mg/dL <10 Bacterial blood culture - 05/14/18 14:49 Bacterial blood culture NG NRG Urine drug screening test - 05/14/18 15:07 Urine phencyclidine detection by screening method NEGATIVE NEGATIVE Urine benzodiazepines detection by screening method NEGATIVE NEGATIVE Urine cocaine detection NEGATIVE NEGATIVE Urine amphetamines detection by screening method NEGATIVE NEGATIVE Urine methamphetamine detection by screening method NEGATIVE NEGATIVE Urine cannabinoids detection by screening method NEGATIVE NEGATIVE Urine opiates detection by screening method POSITIVE NEGATIVE Urine barbiturates detection POSITIVE NEGATIVE Screening urine tricyclic antidepressants detection NEGATIVE NEGATIVE Urine methadone detection by screening method NEGATIVE NEGATIVE Urine oxycodone detection NEGATIVE NEGATIVE Urine propoxyphene detection NEGATIVE NEGATIVE Complete urinalysis with reflex to culture - 05/14/18 15:07 Urine color determination YELLOW NRG Urine clarity determination VERY CLOUDY NRG Urine pH measurement by test strip 5 5-9 Specific gravity of urine by test strip 1.020 1.016- 1.022 Urine protein assay by test strip, semi-quantitative 3+ NEGATIVE Urine glucose detection by automated test strip NEGATIVE NEGATIVE Erythrocytes detection in urine sediment by light microscopy 2+ NEGATIVE Urine ketones detection by automated test strip 1+ NEGATIVE Urine nitrite detection by test strip NEGATIVE NEGATIVE Urine total bilirubin detection by test strip 2+ NEGATIVE Urine urobilinogen measurement by automated test strip (mass/volume) 1 mg/dL NORMAL Urine leukocyte esterase detection by dipstick 3+ NEGATIVE Automated urine sediment erythrocyte count by microscopy (number/high power field) [HPF] NRG Automated urine sediment leukocyte count by microscopy (number/high power field ) [HPF] NRG Bacteria detection in urine sediment by light microscopy NEGATIVE NRG Squamous epithelial cells detection in urine sediment by light microscopy 0-2 NRG Crystals detection in urine sediment by light microscopy NONE NRG Casts detection in urine sediment by light microscopy NONE NRG Mucus detection in urine sediment by light microscopy NEGATIVE NRG Complete urinalysis with reflex to culture YES NRG Amorphous sediment detection in urine sediment by light microscopy MOD SABRA URATES NRG Bacterial urine culture - 05/14/18 15:07 Bacterial urine culture RML NRG COLONY COUNT . NRG Bacterial blood culture - 05/14/18 17:09 Bacterial blood culture NG NRG C DIFFICILE AG + TOXIN A/B. - 05/14/18 20:32 RESULTS NEGATIVE FOR ANTIGEN AND TOXIN A/B NRG Arterial blood gas measurement - 05/14/18 20:40 Blood pCO2 49 mm[Hg] 35-45 Blood pO2 71 mm[Hg] 79-93 Arterial blood bicarbonate measurement (moles/volume) 22 mmol/L 23-27 Arterial blood base excess by calculation -4.3 mmol/L - 2.5-2.5 Arterial blood oxygen saturation measurement 93 % 94-100 * Inhaled oxygen flow rate 5L NRG Arterial blood pH measurement with patient temperature correction 7.27 7.37-7.43 Arterial blood carbon dioxide, total measurement (moles/volume) 23.0 mmol/L 21.0-31.0 Body site RT RAD NRG Assessment of wrist artery patency prior to arterial puncture YES- POS NRG Setting of ventilation mode NO NRG Measurement of body temperature 98.8 NRG Complete blood count (CBC) with automated white blood cell (WBC) differential - 05/14/18 20:50 Blood leukocytes automated count (number/volume) 11.5 10*3/uL 4.3-11.0 Blood erythrocytes automated count (number/volume) 2.82 10*6/uL 4.35-5.85 Venous blood hemoglobin measurement (mass/volume) 9.2 g/dL 11.5-16.0 Blood hematocrit (volume fraction) 26 % 35-52 Automated erythrocyte mean corpuscular volume 92 [foz_us] 80-99 Automated erythrocyte mean corpuscular hemoglobin (mass per erythrocyte) 33 pg 25-34 Automated erythrocyte mean corpuscular hemoglobin concentration measurement ( mass/volume) 35 g/dL 32-36 Automated erythrocyte distribution width ratio 14.8 % 10.0-14.5 Automated blood platelet count (count/volume) 200 10*3/uL 130-400 Automated blood platelet mean volume measurement 10.3 [foz_us] 7.4-10.4 Automated blood neutrophils/100 leukocytes 90 % 42-75 Automated blood lymphocytes/100 leukocytes 6 % 12-44 Blood monocytes/100 leukocytes 4 % 0-12 Automated blood eosinophils/100 leukocytes 0 % 0-10 Automated blood basophils/100 leukocytes 0 % 0-10 Blood neutrophils automated count (number/volume) 10.3 10*3 1.8-7.8 Blood lymphocytes automated count (number/volume) 0.7 10*3 1.0-4.0 Blood monocytes automated count (number/volume) 0.5 10*3 0.0-1.0 Automated eosinophil count 0.0 10*3/uL 0.0-0.3 Automated blood basophil count (count/volume) 0.0 10*3/uL 0.0-0.1 Comprehensive metabolic panel - 05/14/18 20:50 Serum or plasma sodium measurement (moles/volume) 125 mmol/L 135-145 Serum or plasma potassium measurement (moles/volume) 5.2 mmol/L 3.6-5.0 Serum or plasma chloride measurement (moles/volume) 90 mmol/L 98-107 Carbon dioxide 19 mmol/L 21-32 Serum or plasma anion gap determination (moles/volume) 16 mmol/L 5-14 Serum or plasma urea nitrogen measurement (mass/volume) 64 mg/dL 7-18 Serum or plasma creatinine measurement (mass/volume) 3.83 mg/dL 0.60-1.30 Serum or plasma urea nitrogen/creatinine mass ratio 17 NRG Serum or plasma creatinine measurement with calculation of estimated glomerular filtration rate 12 NRG Serum or plasma glucose measurement (mass/volume) 106 mg/dL 70-105 Serum or plasma calcium measurement (mass/volume) 8.1 mg/dL 8.5-10.1 Serum or plasma total bilirubin measurement (mass/volume) 0.3 mg/dL 0.1-1.0 Serum or plasma alkaline phosphatase measurement (enzymatic activity/volume) 87 U/L 40-136 Serum or plasma aspartate aminotransferase measurement (enzymatic activity/ volume) 33 U/L 5-34 Serum or plasma alanine aminotransferase measurement (enzymatic activity/volume ) 27 U/L 0-55 Serum or plasma protein measurement (mass/volume) 6.7 g/dL 6.4-8.2 Serum or plasma albumin measurement (mass/volume) 3.8 g/dL 3.2-4.5 Magnesium - 05/14/18 20:50 Magnesium 2.3 mg/dL 1.8-2.4 Blood manual differential performed detection - 05/14/18 20:50 Blood monocytes/100 leukocytes 4 % NRG Manual blood segmented neutrophils/100 leukocytes 89 % NRG Manual blood lymphocytes/100 leukocytes 7 % NRG Blood lactic acid measurement (moles/volume) - 05/14/18 23:55 Blood lactic acid measurement (moles/volume) 0.97 mmol/L 0.50-2.00 Complete blood count (CBC) with automated white blood cell (WBC) differential - 05/15/18 03:20 Blood leukocytes automated count (number/volume) 9.1 10*3/uL 4.3-11.0 Blood erythrocytes automated count (number/volume) 2.87 10*6/uL 4.35-5.85 Venous blood hemoglobin measurement (mass/volume) 9.0 g/dL 11.5-16.0 Blood hematocrit (volume fraction) 26 % 35-52 Automated erythrocyte mean corpuscular volume 91 [foz_us] 80-99 Automated erythrocyte mean corpuscular hemoglobin (mass per erythrocyte) 31 pg 25-34 Automated erythrocyte mean corpuscular hemoglobin concentration measurement ( mass/volume) 34 g/dL 32-36 Automated erythrocyte distribution width ratio 14.9 % 10.0-14.5 Automated blood platelet count (count/volume) 277 10*3/uL 130-400 Automated blood platelet mean volume measurement 10.1 [foz_us] 7.4-10.4 Automated blood neutrophils/100 leukocytes 87 % 42-75 Automated blood lymphocytes/100 leukocytes 7 % 12-44 Blood monocytes/100 leukocytes 5 % 0-12 Automated blood eosinophils/100 leukocytes 1 % 0-10 Automated blood basophils/100 leukocytes 0 % 0-10 Blood neutrophils automated count (number/volume) 7.9 10*3 1.8-7.8 Blood lymphocytes automated count (number/volume) 0.7 10*3 1.0-4.0 Blood monocytes automated count (number/volume) 0.4 10*3 0.0-1.0 Automated eosinophil count 0.1 10*3/uL 0.0-0.3 Automated blood basophil count (count/volume) 0.0 10*3/uL 0.0-0.1 Whole blood basic metabolic panel - 05/15/18 03:20 Serum or plasma sodium measurement (moles/volume) 125 mmol/L 135-145 Serum or plasma potassium measurement (moles/volume) 4.3 mmol/L 3.6-5.0 Serum or plasma chloride measurement (moles/volume) 93 mmol/L 98-107 Carbon dioxide 18 mmol/L 21-32 Serum or plasma anion gap determination (moles/volume) 14 mmol/L 5-14 Serum or plasma urea nitrogen measurement (mass/volume) 66 mg/dL 7-18 Serum or plasma creatinine measurement (mass/volume) 3.66 mg/dL 0.60-1.30 Serum or plasma urea nitrogen/creatinine mass ratio 18 NRG Serum or plasma creatinine measurement with calculation of estimated glomerular filtration rate 13 NRG Serum or plasma glucose measurement (mass/volume) 110 mg/dL 70-105 Serum or plasma calcium measurement (mass/volume) 7.5 mg/dL 8.5-10.1 Serum or plasma phosphate measurement (mass/volume) - 05/15/18 03:20 Serum or plasma phosphate measurement (mass/volume) 7.4 mg/dL 2.3-4.7 Magnesium - 05/15/18 03:20 Magnesium 2.3 mg/dL 1.8-2.4 Arterial blood gas measurement - 05/15/18 11:26 Blood pCO2 46 mm[Hg] 35-45 Blood pO2 102 mm[Hg] 79-93 Arterial blood bicarbonate measurement (moles/volume) 19 mmol/L 23-27 Arterial blood base excess by calculation -7.2 mmol/L - 2.5-2.5 Arterial blood oxygen saturation measurement 98 % 94-100 * Inhaled oxygen flow rate 5L NRG Arterial blood pH measurement with patient temperature correction 7.23 7.37-7.43 Arterial blood carbon dioxide, total measurement (moles/volume) 20.4 mmol/L 21.0-31.0 Body site RIGHT RADIAL NRG Assessment of wrist artery patency prior to arterial puncture POSITIVE NRG Setting of ventilation mode NO NRG Measurement of body temperature 98.2 NRG Encounters ACCT No. Visit Date/Time Discharge Status Pt. Type Provider Facility Loc./Unit Complaint [id number] 09/13/2014 14:47:00 [facility] Unknown [id number] 02/03/2015 04:27:10 ACT Document Registration [id number] 02/19/2018 14:28:36 02/19/2018 23:59:59 [facility] Outpatient Virgie Bernal [id number] 04/29/2017 09:08:00 Document Registration [id number] 02/20/2018 22:00:00 02/24/2018 18:50:00 DIS Inpatient GAVI DEGROOT DO Via [facility] 4TH ELEVATED TROPONIN, ELEVATED D-DIMER,SOA [id number] 02/03/2018 22:20:00 02/04/2018 01:26:00 DIS Emergency IMCHAEL BURRELL MD [facility] ER CP/SEIZURE [id number] 06/18/2017 18:03:00 06/18/2017 21:14:00 DIS Emergency STAR ORTIZ [facility] ER LT LEG SORE/BRUISING [id number] 03/06/2017 09:45:00 03/06/2017 11:46:00 DIS Emergency QUIN JONES MD [facility] ER ABD PAIN [id number] 11/23/2016 14:15:00 11/23/2016 16:00:00 DIS Emergency QUIN JONES MD [facility] ER SOA/COUGH/VOMITING [id number] 08/05/2016 20:48:00 08/05/2016 22:20:00 DIS Emergency KAILA DO, HOLA K [facility] ER R LEG WOUND/PAINFUL URINATION/LOWER BACK PAIN [id number] 01/27/2016 20:37:00 01/28/2016 02:05:00 DIS Emergency KAILA LANGE, HOLA K [facility] ER ABD PAIN,N,V,D [id number] 01/27/2016 01:55:00 01/27/2016 05:47:00 DIS Emergency SANTHOSH LOWE MD [facility] ER L FLANK PAIN [id number] 02/02/2015 15:37:00 02/02/2015 17:07:00 DIS Emergency STAR ORTIZ [facility] ER PAIN [id number] 01/19/2015 01:46:00 01/19/2015 04:46:00 DIS Emergency SANTHOSH LOWE MD [facility] ER MERSA FLARING UP [id number] 11/27/2014 20:30:00 11/27/2014 22:29:00 DIS Emergency STAR ORTIZ [facility] ER BACK PAIN [id number] 06/07/2014 16:31:00 06/10/2014 14:12:00 DIS Inpatient GAVI DEGROOT DO [facility] ICU INTRACTABLE L HIP PAIN, UNABLE TO CARE FOR SELF [id number] 06/05/2014 13:39:00 06/05/2014 16:45:00 DIS Emergency STAR ORTIZ [facility] ER FALL NECK PAIN AND BACK PAIN [id number] 05/23/2014 20:00:00 05/25/2014 11:35:00 DIS Inpatient JOANN GONZALES, MATTHEW Longoria [facility] ICU CHEST PAIN,COPD EXACERBATION,ELEVATED D-DIMER [id number] 04/09/2014 13:14:00 04/09/2014 16:26:00 DIS Emergency NEERAJ VILLA TENANT COORDINATOR [facility] ER ABD PAIN [id number] 04/06/2014 10:52:00 04/08/2014 11:45:00 DIS Inpatient GAVI DEGROOT DO [facility] 4TH RESPIRATORY DISTRESS, HYPOXIA,PNEUMONIA,CHEST PAIN [id number] 03/18/2014 16:36:00 03/18/2014 18:25:00 DIS Emergency NEERAJ VILLA TENANT COORDINATOR [facility] ER SOA [id number] 02/04/2014 19:05:00 02/04/2014 23:17:00 DIS Emergency HOLA BRIGHT DO [facility] ER CHEST PAIN [id number] 11/14/2013 14:21:00 11/14/2013 18:24:00 DIS Emergency NEERAJ VILLA TENANT COORDINATOR [facility] ER LOWER BACK PAIN [id number] 09/28/2013 23:45:00 09/29/2013 02:02:00 DIS Emergency SANTHOSH LOWE MD [facility] ER CHEST PAIN [id number] 09/15/2013 12:59:00 09/15/2013 14:32:00 DIS Emergency QUIN JONES MD [facility] ER COUGH [id number] 09/13/2013 15:15:00 09/14/2013 08:46:00 DIS Inpatient ABELARDO AMANDA MD [facility] ICU CHEST PAIN, ELEVATED TROPONIA [id number] 07/29/2013 14:25:00 07/29/2013 14:49:00 DIS Outpatient BRI VILLASEÑOR SHERRILL [facility] WOUNDCARE LEG ABSCESS [id number] 06/20/2013 00:03:00 06/24/2013 16:42:00 DIS Inpatient GAVI DEGROOT DO [facility] SURGICAL MULTIPLE ABSCESSES [id number] 06/04/2013 12:49:00 06/04/2013 23:59:59 CLS Outpatient ABELARDO AMANDA MD [facility] RAD CHF [id number] 06/04/2013 10:53:00 06/04/2013 23:59:59 CLS Outpatient ABELARDO AMANDA MD [facility] CARD CHF [id number] 05/30/2013 13:54:00 05/30/2013 15:27:00 DIS Emergency CHRISSY GONZALES, SANTHOSH Castellano [facility] ER CHEST PAIN [id number] 05/10/2013 01:14:00 05/11/2013 14:24:00 DIS Inpatient NGOC CASTILLO MD [facility] ICU NSTEMI,CHEST PAIN, HYPERTENSIVE URGENCY [id number] 04/29/2013 14:28:00 04/29/2013 23:59:59 CLS Outpatient [id number] 05/15/2018 00:10:00 Document Registration [id number] 01/27/2016 05:53:00 Document Registration [id number] 12/01/2014 13:05:00 Document Registration [id number] 12/17/2012 04:30:00 Document Registration [id number] 08/03/2012 03:50:00 Document Registration [id number] 07/23/2012 17:10:00 Document Registration [id number] 05/25/2012 03:15:00 Document Registration [id number] 05/09/2012 19:20:00 Document Registration [id number] 03/28/2012 06:00:00 Document Registration [id number] 10/10/2011 13:00:00 Document Registration [id number] 07/16/2011 01:55:00 Document Registration [id number] 07/02/2011 06:44:00 Document Registration [id number] 04/12/2011 19:39:00 Document Registration [id number] 03/22/2011 02:40:00 Document Registration [id number] 03/19/2011 17:35:00 Document Registration [id number] 03/03/2011 20:58:00 Document Registration [id number] 01/21/2011 21:56:00 Document Registration [id number] 12/28/2010 15:45:00 Document Registration [id number] 11/04/2010 20:43:00 Document Registration [id number] 02/05/2010 04:25:00 Document Registration [id number] 09/18/2016 08:45:00 Document Registration [id number] 01/31/2015 15:03:00 01/31/2015 23:59:59 CLS Outpatient KRANTHI PRECIADO MD [id number] 11/28/2014 09:37:00 11/28/2014 23:59:59 CLS Outpatient TRACEE LANGE APRN [id number] 08/05/2014 14:32:00 08/05/2014 23:59:59 CLS Outpatient TRACEE LANGE APRN [id number] 07/04/2014 12:54:00 07/04/2014 23:59:59 CLS Outpatient GAVI DEGROOT DO [id number] 05/02/2014 15:01:00 05/02/2014 23:59:59 CLS Outpatient GAVI DEGROOT DO [id number] 12/10/2013 14:53:00 12/10/2013 23:59:59 CLS Outpatient TRACEE LANGE APRN [id number] 09/29/2013 15:37:00 09/29/2013 23:59:59 CLS Outpatient TRACEE LANGE APRN [id number] 09/18/2013 12:00:00 09/18/2013 23:59:59 CLS Outpatient TRACEE LANGE APRN [id number] 07/15/2013 14:04:00 07/15/2013 23:59:59 CLS Outpatient KRANTHI PRECIADO MD [id number] 05/31/2013 09:17:00 05/31/2013 23:59:59 CLS Outpatient KRANTHI PRECIADO MD [id number] 12/09/2012 17:16:00 12/09/2012 23:59:59 CLS Outpatient TRACEE LANGE APRN [id number] 10/28/2012 12:04:00 10/28/2012 23:59:59 CLS Outpatient TRACEE LANGE APRN [id number] 10/19/2012 16:04:00 10/19/2012 23:59:59 CLS Outpatient [id number] 09/16/2012 15:22:00 09/16/2012 23:59:59 CLS Outpatient [id number] 08/14/2012 10:30:00 08/14/2012 23:59:59 CLS Outpatient KRANTHI PRECIADO MD [id number] 05/21/2013 10:29:00 Document Registration [id number] 03/02/2013 15:46:00 Document Registration [id number] 02/25/2018 13:40:00 02/25/2018 23:59:59 CLS Outpatient TRACEE LANGE APRN [facility]
== END 2018-05-15 13:40 | disposition short-term general hospital (02) | DRG 872 ==
LOC: EDUNIT# 13:54 → ER 13:55 → 4TH 16:36 → UNDOADMOB 16:36 → 4TH 16:59 → INTOOBSV 18:36 → OBSVTOIN 18:36 → ICU 21:00 → 4TH 21:00 → ICU 05-15 11:44 → UNDODISIN 05-15 13:40
PROVIDERS: ADMIT Family Medicine; ATTEND Family Medicine
PROC: 02HV33Z Insertion of Infusion Device into Superior Vena Cava, Percutaneous Approach (ICD-10-PCS; principal; 2018-05-15)
DX: A41.9 Sepsis, unspecified organism (principal); N17.9 Acute kidney failure, unspecified; E87.1 Hypo-osmolality and hyponatremia; N39.0 Urinary tract infection, site not specified; K56.600 Partial intestinal obstruction, unspecified as to cause; L03.115 Cellulitis of right lower limb; L03.116 Cellulitis of left lower limb; I42.9 Cardiomyopathy, unspecified; I87.2 Venous insufficiency (chronic) (peripheral); J43.9 Emphysema, unspecified; I12.9 Hypertensive chronic kidney disease with stage 1 through stage 4 chronic kidney disease, or unspecified chronic kidney disease; N18.9 Chronic kidney disease, unspecified; T68.XXXA Hypothermia, initial encounter; I25.10 Atherosclerotic heart disease of native coronary artery without angina pectoris; G40.909 Epilepsy, unspecified, not intractable, without status epilepticus; F41.9 Anxiety disorder, unspecified; F43.10 Post-traumatic stress disorder, unspecified; B19.20 Unspecified viral hepatitis C without hepatic coma; F15.10 Other stimulant abuse, uncomplicated; R19.7 Diarrhea, unspecified; Z99.81 Dependence on supplemental oxygen; W93.8XXA Exposure to other excessive cold of man-made origin, initial encounter
CPT/HCPCS: 36415; 36600; 51701; 71045; 74018; 74176; 80048; 80053; 80306; 80320; 80329; 81000; 82140; 82805; 83605; 83735; 84100; 85007; 85025; 85027; 87040; 87088; 87324; 87449; 96361; 96365; 96366

== ENCOUNTER → 2018-07-17 | Outpatient (CLI) | payer MEDICAID ==
[~2018-07-17] MED LIST changes: +ACET-2267 PO; +AMLO-335 PO; +AMLO10TA6 PO; +BISA10SU58 RC; +CARV25TA PO; +GABA-488 PO; +GUAI-365 PO; +HALO5TAB PO; +HYDR25TA4 PO; +LANS15CA5 PO; +LANS15TA10 PO; +LISI-552 PO; +LORA10TA7 PO; +MAGN400O7 PO; +MELA5TAB14 PO; +NA P133E22 RC; +OLAN5TAB25 PO; +OXCA600T10 PO; +PHEN-515 PO; +QUET25TA PO; +RIVA20TA PO
[2018-07-17 08:28] LABS: ALBUMIN 4.2 GM/DL (3.2-4.5); CALCIUM 8.9 MG/DL (8.5-10.1); CREATININE SERUM 1.91 MG/DL (0.60-1.30); PHOSPHORUS 5.5 MG/DL (2.3-4.7); POTASSIUM 4.9 MMOL/L (3.6-5.0)
== END ==
LOC: LAB 07:52
PROVIDERS: ATTEND Internal Medicine Interventional Cardiology
DX: N18.9 Chronic kidney disease, unspecified (principal)
CPT/HCPCS: 36415; 80069

== ENCOUNTER → 2018-07-24 | Outpatient (CLI) | payer MEDICAID ==
[~2018-07-24] MED LIST changes: +AMIT50TA3 PO; +CARV12.52 PO; +CLON0.2T PO; +FLUT1DIS28 IH; +HYDR-3781 PO; +HYDR-3924 PO; +LOSA100T8 PO; +SPIR25TA PO
== END ==
LOC: CARD 13:33
PROVIDERS: ATTEND Internal Medicine Interventional Cardiology
DX: I08.1 Rheumatic disorders of both mitral and tricuspid valves (principal); I27.20 Pulmonary hypertension, unspecified; I42.8 Other cardiomyopathies
CPT/HCPCS: 93306

== ENCOUNTER → 2018-08-03 | Day surgery (SDC) | payer MEDICAID ==
--- OUTSIDE RECORDS SUMMARY | 2018-07-30 08:11 | XMS REPORT | Clinical Summary ---
Author Author [facility] Organization [facility] Address Unknown Phone Unavailable Care Team Providers Care Stencil Typist Name Role Phone Sander Bates Unavailable Anita [...] in the Health Information Management department at [phone] for further assistance in locating additional records.[facility] Allergies Active Allergy Reactions Severity Noted Date [...] Taken Blood Pressure 110/80 11/11/2014 1:07 PM [employer] Pulse 72 11/11/2014 1:07 PM [employer] Temperature 36.5 C (97.7 F) 11/11/2014 1:07 PM [employer] Respiratory Rate 16 11/11/2014 1:07 PM [employer] Oxygen Saturation 94% 09/21/2014 7:45 AM [employer] Inhaled Oxygen - - Concentration Weight 82.1 kg (181 lb) 11/11/2014 1:07 PM [employer] Height 160 cm (5' 3") 11/11/2014 1:07 PM [employer] Body Mass Index 32.06 11/11/2014 1:07 PM [employer] Plan of Treatment Health Maintenance Due Date Last Done Comments PHYSICAL (COMPREHENSIVE) 1967 EXAM PERTUSSIS VACCINE 1971 TETANUS VACCINE 1977 CERVICAL CANCER SCREENING 1990 BREAST CANCER SCREENING 2000 COLORECTAL CANCER 2010 SCREENING SHINGLES RECOMBINANT 2010 VACCINE (1 of 2) INFLUENZA VACCINE 05/13/2018 07/12/2014 HEPATITIS C SCREENING Completed 06/11/2014, 06/11/2014, 06/10/2014 HIV SCREENING Completed 06/11/2014 Results Not on filefrom Last 3 Months
--- OUTSIDE RECORDS SUMMARY | 2018-07-30 08:12 | XMS REPORT ---
Author Author TRACEE LANGE Organization [facility] Address [address] [place] [address] Care Team Providers Care Stamp Redemption Clerk Name Role Phone TRACEE LANGE Unavailable PROBLEMS Type Condition ICD9-CM Code CWK23-XQ Code Onset Dates Condition Status SNOMED Code Problem Thoracic neuritis M54.14 Active 41118221 Problem Intracranial injury, without loss of consciousness, subsequent encounter S06.9X0D Active 231284261 Problem Ventricular arrhythmia I49.9 Active 02107379 Problem Epileptic seizure, generalized G40.309 Active 04430573 Problem Hypertension, benign I10 Active 42775088 Problem Lumbar neuritis M54.16 Active 412792457 Problem GERD (gastroesophageal reflux disease) K21.9 Active 600508517 Problem Cardiomyopathy I42.9 Active 48794585 ALLERGIES No Information ENCOUNTERS Encounter Location Date Diagnosis [place] [id number] [address] Aug, [place] [address] [address]- [address] Jul, [facility] [address] [address]- [address] Jul, Thoracic neuritis M54.14 ; Pain of left leg M79.605 and Pain in right leg M79.604 [facility] [address] [place] [id number] [place] [address] 32192- 6625 Jun, Seizures R56.9 [facility] [address] [address]- 8299 May, [facility] [address] 4[address]- 1519 May, [facility] [address] [address]- 5513 May, [facility] [address] [place] [id number] [place] [address] 82227- 8635 May, Seizures R56.9 [facility] [address] [place] [id number] [place] [address] 02439- 6598 May, [facility] [address] [place] [id number] [place] [address] 29846- 9522 May, Delirium R41.0 [facility] [address] [address]- [address]293 Apr, [place] [address] 75880- 8469 February, Ventricular arrhythmia I49.9 [place] [address] 13136- 4626 February, [facility] [address] 15809- 9622 Dec, Thoracic neuritis M54.14 ; Lumbar neuritis M54.16 and Epileptic seizure, generalized G40.309 [place] [address] 86899- 9370 Sep, Epileptic seizure, generalized G40.309 and Lumbar neuritis M54.16 [place] [address] [place] [id number] [place] [address] 46243- 1890 Aug, Thoracic neuritis M54.14 and Lumbar neuritis M54.16 [place] [address] [place] [id number] [place] [address] 76003- 9684 Jun, [place] [address] 50665- 2389 Jun, Abscess of leg, left L02.416 [facility] [address] [place] [id number] [place] [address] 68418- 6766 May, Lumbar neuritis M54.16 ; Thoracic neuritis M54.14 ; Intracranial injury, without loss of consciousness, subsequent encounter S06.9X0D and Cardiomyopathy I42.9 [facility] [id number] [place] [address] 41890- 7289 Apr, Lumbar neuritis M54.16 [facility] [address] [place] [id number] [place] [address] 46228- 9335 Apr, [facility] [address] [place] [id number] [place] [address] 86305- 9995 Apr, Elevated liver enzymes R74.8 and Renal insufficiency N28.9 [facility] [address] [place] [id number] [place] [address] 03888- 2763 Apr, Lumbar neuritis M54.16 ; Thoracic neuritis M54.14 ; Hypertension, benign I10 ; Cardiomyopathy I42.9 and Epileptic seizure, generalized G40.309 [facility] [address] [place] [id number] [place] [address] 65617- 7179 Mar, [facility] [address] [id number] [place] [address] 33162- 2986 February, [facility] [address] [place] [id number] [place] [address] 16917- 7003 February, Lumbar neuritis M54.16 ; Thoracic neuritis M54.14 ; Hypertension, benign I10 ; Cardiomyopathy I42.9 and Epileptic seizure, generalized G40.309 [facility] [address] [place] [id number] [place] [address] 20887- 5877 Dec, [facility] [address] [place] [id number] [place] [address] 75335- 6328 Sep, Epigastric mass R19.06 [place] [address] [place] [id number] [place] [address] 99960- 5222 Sep, Epigastric mass R19.06 [facility] [address] [place] [id number] [place] [address] 54058- 5270 Sep, [facility] [address] [place] [id number] [place] [address] 60640- 9489 Sep, Epigastric mass R19.06 [place] [address] [place] [id number] [place] [address] 93096- 1690 Sep, Epigastric mass R19.06 and Lung mass R91.8 [facility] [address] [address] -[address]902 Jul, Shortness of breath R06.02 ; Dysuria R30.0 and Acute bronchitis, unspecified organism J20.9 [place] [address] 60623- 6310 Jul, [place] [address] 38932- 0459 15 Jun, 2016 Seizures R56.9 ; Thoracic neuritis M54.14 ; Lumbar neuritis M54.16 and GERD (gastroesophageal reflux disease) K21.9 [facility] [address] 80498 -2561 Jan, [place] [address] 56679- 0612 Sep, [place] [address] 86603- 9115 Sep, Intracranial injury, without loss of consciousness, subsequent encounter S06.9X0D ; Cardiomyopathy I42.9 ; GERD (gastroesophageal reflux disease) K21.9 ; Hypertension, benign I10 ; Thoracic neuritis M54.14 and Lumbar neuritis M54.16 [place] [address] [place] [id number] [place] [address] 82935- 6818 Mar, [address] [address]- 2501 Mar, Coronary atherosclerosis of unspecified type of vessel, [place] or graft 414.00 ; Unspecified essential hypertension 401.9 ; Thoracic or lumbosacral neuritis or radiculitis, unspecified 724.4 and Other convulsions 780.39 [place] [address] 97730- 3608 14 Jan, 2014 [facility] [place] [facility] [address] [id number] [place] [address]- 1385 13 Jan, 2014 [facility] [place] [facility] [address] [id number] [place] [address]- 6222 Nov, 2014 [facility] [place] [facility] [address] [facility] [id number] [place] [address]- 7936 Nov, 2014 [facility] [place] [facility] [address] [id number] [place] [address]- 6639 Nov, 2014 [facility] [place] [facility] [address] [id number] [place] 2163 Nov, 2014 [facility] [place] [facility] [address] [facility] [id number] [place] [address]- 2997 16 Nov, 2014 [facility] [place] [facility] [address] [facility] [id number] [place] [address]- 1795 16 Nov, 2014 [facility] [place] [facility] [address] [facility] [id number] [place] [address]- 3261 09 Nov, 2014 [facility] [place] [facility] [address] [facility] [id number] [place] [address]- 1786 Nov, 2014 [facility] [place] [facility] [address] [facility] [id number] [place] [address]- 0900 Nov, 2014 [facility] [place] [facility] [address] [facility] [id number] [place] [address]- 5676 Nov, 2014 [facility] [place] [facility] [address] [facility] [id number] [place] [address] Sep, [facility] [place] [facility] [address] [id number] [place] 5048 Sep, [facility] [place] [facility] [address] [facility] [id number] [place] [address]- 0274 Aug, [facility] [place] [facility] [address] [facility] [id number] [place] [address]- 8361 Aug, [facility] [place] [facility] [address] [id number] [place] [address]- 2904 Aug, [facility] [place] [facility] [address] [id number] [place] [address]- 8891 Aug, [facility] [place] [facility] [address] [id number] [place] [address]- 8145 Jul, [facility] [place] [facility] [address] [id number] [place] [address]- 1720 Jul, [facility] [place] [facility] [address] [id number] [place] [address]- 5096 Jul, [facility] [place] [facility] [address] [id number] [place] [address]- 2797 Jul, [facility] [place] [facility] [address] [id number] [place] [address]- 0618 Jun, [facility] [place] [facility] [address] [id number] [place] [address]- 9047 Jun, [facility] [place] [facility] [address] [id number] [place] [address]- 8745 Jun, [facility] [place] [facility] [address] [id number], [place] [address]- 0872 May, [facility] [place] [facility] [address] [id number], [place] [address]- 7568 May, [facility] [place] [facility] [address] [id number], [place] [address]- 6152 May, [facility] [place] [facility] [address] [id number] [place] [address]- 5338 May, [facility] [place] [facility] [address] [id number] [place] [address]- 3566 May, [facility] [place] [facility] [address] [id number], [place] [address]- 8426 May, [facility] [place] [facility] [address] [id number], [place] [address]- 4529 May, [facility] [place] [facility] [address] [id number] [place] [address]- 0473 May, [facility] [place] [facility] [address] [id number] [place] [address]- 2296 February, [facility] [place] [facility] [address] [facility] [id number] [place] [address]- 4252 February, [facility] [place] [facility] [address] [id number] [place] [address]- 3451 Jan, [facility] [place] [facility] [address] [id number] [place] [address]- 4926 Jan, [facility] [place] [facility] [address] [facility] [id number] [place] [address]- 3611 Jan, [facility] [place] [facility] [address] [place] [id number] [place] [address]- 9624 Jan, [facility] [place] [facility] [address] [facility] [id number] [place] [address]- 1583 Nov, [facility] [place] [facility] [address] [place] [id number] [place] [address]- 0743 Nov, [facility] [place] [facility] [address] [facility] [id number] [place] [address]- 4664 Nov, [facility] [place] [facility] [address] [place] [id number] [place] [address]- 3561 Nov, [facility] [place] [facility] [address] [facility] [id number] [place] [address]- 2042 Sep, [facility] [place] [facility] [address] [id number] [place] [address]- 7684 Sep, [facility] [place] [facility] [address] [facility] [id number] [place] 5445 Sep, [facility] [place] [facility] [address] [facility] [id number] [place] [address]- 7488 Sep, [facility] [place] [facility] [address] [id number] [place] [address]- 2546 Sep, [facility] [address] [id number] [place] [address]- 2546 Sep, [facility] [address] [id number] [place] [address]- 2546 Jul, [facility] [address] [id number] [place] [address]- 2546 Jul, [facility] [address] [id number] [place] [address]- 2547 Jun, [facility] [address] [id number] [place] [address]- 2546 Jun, [facility] [address] [id number] [place] [address]- 2546 Jun, [facility] [address] [id number] [place] [address]- 4026 May, [facility] [address] [place] [id number] May [facility] [address] [id number] [place] [address]- 3436 May, [facility] [address] [id number] [place] [address]- 2546 May, [facility] [address] [id number] [place] [address]- 2546 May, [facility] [address] [id number] [place] [address]- 2546 May, [facility] [address] [id number] [place] [address]- 2546 May, [facility] [address] [id number] [place] [address]- 2546 Apr, [facility] [address] [id number] [place] [address]- 4142 Apr, [facility] [address] [id number] [place] [address]- 5152 Apr, [facility] [place] [facility] [address] [id number] [place] [address]- 1958 Apr, [facility] [address] [id number] [place] [address]- 5571 Mar, [facility] [place] [facility] [address] [id number] [place] [address]- 9543 February, [facility] [address] [id number] [place] [address]- 4530 Jan, [facility] [place] [facility] [address] [id number] [place] [address]- 9539 Dec, [facility] [address] [id number] [place] [address]- 3782 Dec, [facility] [place] [facility] [address] [id number] [place] [address]- 5514 Dec, [facility] [address] [id number] [place] [address]- 5852 Nov, [facility] [place] [facility] [address] [id number] [place] [address]- 4763 Nov, [facility] [place] [facility] [address] [id number] [place] [address]- 0655 Nov, [facility] [place] [facility] [address] [id number] [place] [address]- 6769 Oct, [facility] [place] [facility] [address] [id number] [place] [address]- 4006 Oct, [facility] [place] [facility] [address] [id number] [place] [address]- 5656 Sep, [facility] [place] [facility] [address] [id number] [place] [address]- 0242 Sep, [facility] [place] [facility] [address] [id number] [place] [address]- 8223 Sep, [facility] [place] [facility] [address] [id number] [place] [address]- 5326 Sep, [facility] [place] [facility] [address] [id number] [place] 2516 Sep, [facility] [place] [facility] [address] [id number] [place] [address]- 1184 Sep, [facility] [place] [facility] [address] [id number] [place] [address]- 6991 Aug, [facility] [place] [facility] [address] [id number] [place] [address]- 0420 Aug, [facility] [place] [facility] [address] [id number] [place] [address]- 8578 Aug, [facility] [place] [facility] [address] [id number] [place] [address]- 5320 Aug, [facility] [place] [facility] [address] [id number] [place] [address]- 3357 Aug, [facility] [place] [facility] [address] [id number] [place] [address]- 0225 Aug, [facility] [place] [facility] [address] [facility] [id number] [place] [address]- 4007 Aug, [facility] [place] [facility] [address] [id number] [place] [address]- 1831 Aug, [facility] [place] [facility] [address] [id number], [place] [address]- 6313 Aug, [facility] [place] [facility] [address] [id number] [place] [address]- 5265 Aug, [facility] [place] [facility] [address] [id number] [place] [address]- 9803 Jul, [facility] [place] [facility] [address] [id number], [place] [address]- 0862 Jul, [facility] [place] [facility] [address] [id number] [place] [address]- 7168 Jul, [facility] [place] [facility] [address] [id number] [place] [address]- 5430 Jul, [facility] [place] [facility] [address] [id number] [place] [address]- 8335 Jul, [facility] [place] [facility] [address] [id number] [place] [address]- 7484 24 Jul, 2012 [facility] [place] [facility] [address] [id number] [place] [address]- 5043 Jul, [facility] [place] [facility] [address] [id number] [place] [address]- 7809 Jul, [facility] [place] [facility] [address] [id number] [place] [address]- 7437 18 Jul, 2012 [facility] [place] [facility] [address] [id number] [place] [address]- 5364 Jul, [facility] [place] [facility] [address] [id number] [place] [address]- 9898 Jul, [facility] [place] [facility] [address] [id number] [place] [address]- 7198 Jul, [facility] [place] [facility] [address] [id number] [place] [address]- 6951 Jul, [facility] [place] [facility] [address] [id number] [place] [address]- 9555 Jul, [facility] [place] [facility] [address] [id number] [place] [address]- 8233 Jul, [facility] [place] [facility] [address] [id number] [place] [address]- 2891 28 Jun, 2012 [facility] [place] [facility] [address] [id number] [place] [address]- 2564 24 Jun, 2012 [facility] [place] [facility] [address] [id number] [place] [address]- 3236 Jun, [facility] [place] [facility] [address] [id number] [place] [address]- 0198 May, [facility] [place] [facility] [address] [id number] [place] [address]- 7666 May, [facility] [place] [facility] [address] [id number] [place] [address]- 1887 Mar, [facility] [place] [facility] [address] [id number] [place] [address]- 6700 Mar, [facility] [place] [facility] [address] [id number] [place] [address]- 0618 February, [facility] [place] [facility] [address] [id number] [place] [address]- 2988 February, [facility] [place] [facility] [address] [id number] [place] [address]- 8202 Nov, [facility] [place] [facility] [address] [id number] [place] [address]- 3798 Oct, [facility] [place] [facility] [address] [id number] [place] 8635 Oct, [facility] [place] [facility] [address] [id number] [place] [address]- 3218 Oct, [facility] [place] [facility] [address] [id number], [place] [address]- 5889 Aug, [facility] [place] [facility] [address] [id number] [place] [address]- 2119 Jul, [facility] [place] [facility] [address] [id number] [place] [address]- 4228 Sep, [facility] [place] [facility] [address] [id number] [place] [address]- 0625 Aug, [facility] [place] [facility] [address] [id number] [place] [address]- 0146 Jul, [facility] [place] [facility] [address] [address]- 7976 14 Apr, 2010 [facility] [address], [place] [address]- 2032 February, [facility] [address], [place] [address]- 8506 Sep, [facility] [id number] [place] [address] 76696- 4751 Sep, [facility] [id number] [place] [address] 32425- 8936 Sep, [facility] [id number] [place] [address] 24586- 7870 Apr, [facility] [id number] [place] [address] 43149- 4717 Mar, [facility] [id number] [place] [address] 49579- 2614 February, [facility] [address], [place] [address]- 8725 Jan, [facility] [address], [place] [address]- 0388 Jul, IMMUNIZATIONS No Known Immunizations SOCIAL HISTORY Never Assessed REASON FOR VISIT seizure PLAN OF CARE VITAL SIGNS MEDICATIONS Unknown Medications RESULTS No Results PROCEDURES No Known procedures INSTRUCTIONS MEDICATIONS ADMINISTERED No Known Medications MEDICAL (GENERAL) HISTORY Type Description Date Medical History 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
--- OUTSIDE RECORDS SUMMARY | 2018-07-30 08:13 | XMS REPORT ---
Author Author TRACEE LANGE Organization [facility] Address [address] [place] [address] Care Team Providers Care Email Marketing Manager Name Role Phone TRACEE LANGE Unavailable PROBLEMS Type Condition ICD9-CM Code ERH42-JX Code Onset Dates Condition Status SNOMED Code Problem Thoracic neuritis M54.14 Active 69098851 Problem Intracranial injury, without loss of consciousness, subsequent encounter S06.9X0D Active 069947247 Problem Ventricular arrhythmia I49.9 Active 30207182 Problem Epileptic seizure, generalized G40.309 Active 61442956 Problem Hypertension, benign I10 Active 90739518 Problem Lumbar neuritis M54.16 Active 907854120 Problem GERD (gastroesophageal reflux disease) K21.9 Active 905802972 Problem Cardiomyopathy I42.9 Active 86167542 ALLERGIES No Information ENCOUNTERS Encounter Location Date Diagnosis [place] [id number] [place] [address] 25255- 4256 Aug, [place] [address] 26468- 1863 Jul, Thoracic neuritis M54.14 ; Pain of left leg M79.605 and Pain in right leg M79.604 [place] [id number] [place] [address] 04339- 7044 Jun, Seizures R56.9 [facility] [id number] [place] [address] 32482- 6812 May, [place] [address] 95354- 4704 May, [place] [id number] [place] [address] 12047- 5216 May, [place] [address] 44924- 2519 May, Seizures R56.9 [place] [address] 65796- 1723 May, [place] [address] 26375- 8926 May, Delirium R41.0 [place] [address] 06403- 7164 Apr, [place] [address] 52626- 7928 February, Ventricular arrhythmia I49.9 [place] [address] 33515- 4868 February, [place] [address] 83377- 3593 Dec, Thoracic neuritis M54.14 ; Lumbar neuritis M54.16 and Epileptic seizure, generalized G40.309 [place] [address] 51507- 0243 Sep, Epileptic seizure, generalized G40.309 and Lumbar neuritis M54.16 [place] [address] 32222- 3653 Aug, Thoracic neuritis M54.14 and Lumbar neuritis M54.16 [place] [address] 81812- 2044 Jun, [place] [address] 39911- 7466 Jun, Abscess of leg, left L02.416 [place] [address] 00875- 2643 May, Lumbar neuritis M54.16 ; Thoracic neuritis M54.14 ; Intracranial injury, without loss of consciousness, subsequent encounter S06.9X0D and Cardiomyopathy I42.9 [place] [address] 15250- 6070 Apr, Lumbar neuritis M54.16 [facility] [id number] [place] [address] 33328- 2192 Apr, [facility] [id number] [place] [address] 18172- 6712 Apr, Elevated liver enzymes R74.8 and Renal insufficiency N28.9 [facility] [id number] [place] [address] 05423- 4276 Apr, Lumbar neuritis M54.16 ; Thoracic neuritis M54.14 ; Hypertension, benign I10 ; Cardiomyopathy I42.9 and Epileptic seizure, generalized G40.309 [facility] [id number] [place] [address] 85253- 1355 Mar, [facility] [id number] [place] [address] 35603- 9063 February, [facility] [id number] [place] [address] 64486- 9445 February, Lumbar neuritis M54.16 ; Thoracic neuritis M54.14 ; Hypertension, benign I10 ; Cardiomyopathy I42.9 and Epileptic seizure, generalized G40.309 [facility] [id number] [place] [address] 43552- 0887 Dec, [facility] [id number] [place] [address] 54551- 6469 Sep, Epigastric mass R19.06 [facility] [id number] [place] [address] 78041- 7858 Sep, Epigastric mass R19.06 [facility] [id number] [place] [address] 76920- 2907 Sep, [facility] [id number] [place] [address] 49438- 4905 Sep, Epigastric mass R19.06 [facility] [id number] [place] [address] 76727- 5044 05 Sep, 2016 Epigastric mass R19.06 and Lung mass R91.[address] [facility] [id number] [place] [address] 52897 -1881 Jul, Shortness of breath R06.02 ; Dysuria R30.0 and Acute bronchitis, unspecified organism J20.9 [place] [address] 95039- 9935 Jul, [place] [address] 35395- 0637 15 Jun, 2016 Seizures R56.9 ; Thoracic neuritis M54.14 ; Lumbar neuritis M54.16 and GERD (gastroesophageal reflux disease) K21.9 [facility] [id number] [place] [address] 59233 -4281 27 Jan, 2016 [place] [address] 14019- 8918 Sep, [place] [address] 74289- 8777 09 Sep, 2015 Intracranial injury, without loss of consciousness, subsequent encounter S06.9X0D ; Cardiomyopathy I42.9 ; GERD (gastroesophageal reflux disease) K21.9 ; Hypertension, benign I10 ; Thoracic neuritis M54.14 and Lumbar neuritis M54.16 [place] [id number] [place] [address] 17518- 6506 Mar, [place] [address] 27293- 0588 Mar, Coronary atherosclerosis of unspecified type of vessel, [place] or graft 414.00 ; Unspecified essential hypertension 401.9 ; Thoracic or lumbosacral neuritis or radiculitis, unspecified 724.4 and Other convulsions 780.39 [place] [id number] [place] [address] 90999- 2338 Jan, [place] [address] 70487- 3777 Jan, 2014 [facility] [place] [facility] [address] [id number] [place] [address]- 8833 Nov, 2014 [facility] [place] [facility] [address] [id number] [place] [address]- 7766 Nov, 2014 [facility] [place] [facility] [address] [facility] [id number] [place] [address]- 8966 Nov, 2014 [facility] [place] [facility] [address] [id number] [place] [address]- 4786 Nov, 2014 [facility] [place] [facility] [address] [id number] [place] [address]- 0339 Nov, 2014 [facility] [place] [facility] [address] [facility] [id number] [place] [address]- 8788 Nov, 2014 [facility] [place] [facility] [address] [facility] [id number] [place] [address]- 3283 Nov, 2014 [facility] [place] [facility] [address] [facility] [id number] [place] [address]- 6095 Nov, 2014 [facility] [place] [facility] [address] [facility] [id number] [place] [address]- 9617 Nov, 2014 [facility] [place] [facility] [address] [facility] [id number] [place] [address]- 4757 Nov, 2014 [facility] [place] [facility] [address] [facility] [id number] [place] [address]- 7320 Sep, [facility] [place] [facility] [address] [facility] [id number] [place] [address]- 4090 Sep, [facility] [place] [facility] [address] [facility] [id number] [place] [address]- 0784 Aug, [facility] [place] [facility] [address] [facility] [id number] [place] 7389 Aug, [facility] [place] [facility] [address] [facility] [id number] [place] [address]- 8354 Aug, [facility] [place] [facility] [address] [id number] [place] [address]- 9397 Aug, [facility] [place] [facility] [address] [id number] [place] [address]- 5259 Jul, [facility] [place] [facility] [address] [id number] [place] [address]- 0741 Jul, [facility] [place] [facility] [address] [id number] [place] [address]- 0395 Jul, [facility] [place] [facility] [address] [id number] [place] [address]- 8650 Jul, [facility] [place] [facility] [address] [id number] [place] [address]- 6981 Jun, [facility] [place] [facility] [address] [id number] [place] [address]- 4408 Jun, [facility] [place] [facility] [address] [id number] [place] [address]- 5872 Jun, [facility] [place] [facility] [address] [id number] [place] [address]- 3315 May, [facility] [place] [facility] [address] [id number] [place] [address]- 0717 May, [facility] [place] [facility] [address] [id number] [address]- 4637 May, [facility] [place] [facility] [address] [id number] [address]- 0171 May, [facility] [place] [facility] [address] [id number] [place] [address]- 6245 May, [facility] [place] [facility] [address] [id number] [place] [address]- 6437 May, [facility] [place] [facility] [address] [id number] [address]- 3926 May, [facility] [place] [facility] [address] [id number] [address]- 8883 May, [facility] [place] [facility] [address] [id number] [place] [address]- 6315 February, [facility] [place] [facility] [address] [id number] [place] [address]- 6500 February, [facility] [place] [facility] [address] [facility] [id number] [place] [address]- 9029 Jan, [facility] [place] [facility] [address] [facility] [id number] [place] [address]- 8594 Jan, [facility] [place] [facility] [address] [facility] [id number] [place] [address]- 4680 Jan, [facility] [place] [facility] [address] [facility] [id number] [place] [address]- 6380 Jan, [facility] [place] [facility] [address] [place] [id number] [place] [address]- 3093 Nov, [facility] [place] [facility] [address] [facility] [id number] [place] [address]- 1828 Nov, [facility] [place] [facility] [address] [id number] [place] [address]- 8814 Nov, [facility] [place] [facility] [id number] [place] [address]- 8609 Nov, [facility] [place] [facility] [address] [id number] [place] [address]- 0386 Sep, [facility] [place] [facility] [address] [facility] [id number] [address]- 9827 Sep, [facility] [place] [facility] [address] [facility] [id number] [place] [address]- 7355 Sep, [facility] [place] [facility] [address] [facility] [id number] [place] [address]- 5400 Sep, [facility] [place] [facility] [address] [facility] [id number] [address]- 4895 Sep, [facility] [place] [facility] [address] [id number] [place] [address]- 2546 Sep, [facility] [address] [id number] [place] [address]- 2546 Jul, [facility] [address] [id number] [place] [address]- 2546 Jul, [facility] [address] [id number] [place] [address]- 2546 Jun, [facility] [address] [id number] [place] [address]- 2546 Jun, [facility] [address] [id number] [place] [address]- 2546 Jun, [facility] [address] [id number] [place] [address]- 0686 May, [facility] [address] [place] [id number] May [facility] [address] [id number] [place] [address]- 2546 May, [facility] [address] [id number] [place] [address]- 2546 May, [facility] [address] [id number] [place] [address]- 2546 May, [facility] [address] [id number] [place] [address]- 2546 May, [facility] [address] [id number] [place] [address]- 2546 May, [facility] [address] [id number] [place] [address]- 2546 Apr, [facility] [address] [id number] [place] [address]- 2546 Apr, [facility] [address] [id number] [place] [address]- 8904 Apr, [facility] [address] [id number] [place] [address]- 4563 Apr, [facility] [address] [id number] [place] [address]- 6660 Mar, [facility] [address] [id number] [place] [address]- 7430 February, [facility] [address] [id number] [place] [address]- 6223 Jan, [facility] [address] [id number] [place] [address]- 8820 Dec, [facility] [place] [facility] [address] [id number] [place] [address]- 8143 Dec, [facility] [address] [id number] [place] [address]- 1567 Dec, [facility] [address] [id number] [place] [address]- 8354 Nov, [facility] [address] [id number] [place] [address]- 4375 Nov, [facility] [address] [id number] [place] [address]- 8008 Nov, [facility] [address] [id number] [place] [address]- 0883 Oct, [facility] [place] [facility] [address] [id number] [address]- 1944 Oct, [facility] [place] [facility] [address] [id number] [place] 4487 Sep, [facility] [place] [facility] [address] [id number] [place] [address]- 2783 Sep, [facility] [place] [facility] [address] [id number] [place] [address]- 8858 Sep, [facility] [place] [facility] [address] [id number] [place] [address]- 8486 Sep, [facility] [place] [facility] [address] [id number] [place] [address]- 1734 Sep, [facility] [place] [facility] [address] [id number] [place] 6836 Sep, [facility] [place] [facility] [address] [id number] [place] [address]- 1847 Aug, [facility] [place] [facility] [address] [id number] [place] [address]- 2363 Aug, [facility] [place] [facility] [address] [id number] [place] [address]- 2152 Aug, [facility] [place] [facility] [address] [id number] [place] [address]- 8001 Aug, [facility] [place] [facility] [address] [id number] [place] [address]- 9697 Aug, [facility] [place] [facility] [address] [id number] [place] [address]- 9455 Aug, [facility] [place] [facility] [address] [id number] [place] [address]- 2271 Aug, [facility] [place] [facility] [address] [facility] [id number] [place] [address]- 4862 Aug, [facility] [place] [facility] [address] [id number] [place] [address]- 8327 Aug, [facility] [place] [facility] [address] [id number], [place] [address]- 9729 Aug, [facility] [place] [facility] [address] [id number] [place] [address]- 2358 Jul, [facility] [place] [facility] [address] [id number] [place] [address]- 5879 Jul, [facility] [place] [facility] [address] [id number], [place] [address]- 4263 Jul, [facility] [place] [facility] [address] [id number] [place] [address]- 9439 Jul, [facility] [place] [facility] [address] [id number] [place] [address]- 7801 24 Jul, 2012 [facility] [place] [facility] [address] [id number] [place] [address]- 0927 24 Jul, 2012 [facility] [place] [facility] [address] [id number] [place] [address]- 6634 Jul, [facility] [place] [facility] [address] [id number] [place] [address]- 7528 Jul, [facility] [place] [facility] [address] [id number] [place] [address]- 8708 18 Jul, 2012 [facility] [place] [facility] [address] [id number] [place] [address]- 9549 Jul, [facility] [place] [facility] [address] [id number] [place] [address]- 5477 Jul, [facility] [place] [facility] [address] [id number] [place] [address]- 0813 Jul, [facility] [place] [facility] [address] [id number] [place] [address]- 3629 Jul, [facility] [place] [facility] [address] [id number] [place] [address]- 2436 Jul, [facility] [place] [facility] [address] [id number] [place] [address]- 0994 02 Jul, 2012 [facility] [place] [facility] [address] [id number] [place] [address]- 6118 28 Jun, 2012 [facility] [place] [facility] [address] [id number] [place] [address]- 4166 24 Jun, 2012 [facility] [place] [facility] [address] [id number] [place] [address]- 7025 19 Jun, 2012 [facility] [place] [facility] [address] [id number] [place] [address]- 7566 May, [facility] [place] [facility] [address] [id number] [place] [address]- 5824 May, [facility] [place] [facility] [address] [id number] [place] [address]- 8569 Mar, [facility] [place] [facility] [address] [id number] [place] [address]- 8314 Mar, [facility] [place] [facility] [address] [id number] [place] [address]- 8921 February, [facility] [place] [facility] [address] [id number] [place] [address]- 8226 February, [facility] [place] [facility] [address] [id number] [place] [address]- 1609 Nov, [facility] [place] [facility] [address] [id number] [place] [address]- 6565 Oct, [facility] [place] [facility] [address] [id number] [place] [address]- 6540 Oct, [facility] [place] [facility] [address] [id number] [place] [address]- 4338 Oct, [facility] [place] [facility] [address] [id number] [place] [address]- 3418 Aug, [facility] [place] [facility] [address] [id number] [place] [address]- 0295 Jul, [facility] [place] [facility] [address] [id number] [place] [address] 2548 Sep, [facility] [place] [facility] [address] [id number] [place] [address]- 2512 Aug, [facility] [place] [facility] [address] [id number] [place] [address]- 2601 Jul, [facility] [place] [facility] [address] [id number] [place] [address]- 0815 Apr, [facility] [place] [facility] [id number] [address]- 2546 February, [facility] [id number] [address]- 3876 Sep, [facility] [id number] [address]- 7466 Sep, [facility] [id number] [place] [address] 80985- 7436 Sep, [facility] [id number] [place] [address] 30913- 9124 Apr, [facility] [id number] [place] [address] 17226- 7657 Mar, [facility] [id number] [place] [address] 59104- 1176 February, [facility] [id number] [place] [address] 83092- 4882 Jan, [facility] [id number] [address]- 5256 Jul, IMMUNIZATIONS No Known Immunizations SOCIAL HISTORY Never Assessed REASON FOR VISIT Controlled Med Refill/ PLAN OF CARE VITAL SIGNS MEDICATIONS Medication Instructions Dosage Frequency Start Date End Date Duration Status Phenobarbital 97.2 mg Orally Once a day 1 tablet 24h February, 28 days Active RESULTS No Results PROCEDURES No Known procedures INSTRUCTIONS MEDICATIONS ADMINISTERED No Known Medications MEDICAL (GENERAL) HISTORY Type Description Date Medical History 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
--- OUTSIDE RECORDS SUMMARY | 2018-07-30 08:13 | XMS REPORT ---
Author Author TRACEE LANGE Organization [facility] Address [address] [place] [address] Care Team Providers Care Cork Insulator Name Role Phone TRACEE LANGE Unavailable PROBLEMS Type Condition ICD9-CM Code MMK42-WB Code Onset Dates Condition Status SNOMED Code Problem Thoracic neuritis M54.14 Active 26351285 Problem Intracranial injury, without loss of consciousness, subsequent encounter S06.9X0D Active 281008481 Problem Ventricular arrhythmia I49.9 Active 72851256 Problem Epileptic seizure, generalized G40.309 Active 78025315 Problem Hypertension, benign I10 Active 71202584 Problem Lumbar neuritis M54.16 Active 120336046 Problem GERD (gastroesophageal reflux disease) K21.9 Active 393107840 Problem Cardiomyopathy I42.9 Active 79938639 ALLERGIES No Known Allergies ENCOUNTERS Encounter Location Date Diagnosis [place] [id number] [place] [address] 57372- 6857 Aug, [place] [address] 48111- 6559 Jul, [facility] [id number] [place] [address] 08188- 8772 Jul, Thoracic neuritis M54.14 ; Pain of left leg M79.605 and Pain in right leg M79.604 [facility] [id number] [place] [address] 31568- 7657 Jun, Seizures R56.9 [facility] [address] 73962- 6755 May, [facility] [id number] [place] [address] 98967- 8659 May, [facility] [address] 97462- 4608 May, [facility] [id number] [place] [address] 53395- 1693 May, Seizures R56.9 [facility] [id number] [place] [address] 68365- 9832 May, [facility] [id number] [place] [address] 90001- 6165 May, Delirium R41.0 [facility] [address] 10367- 3224 Apr, [place] [address] 11620- 5541 February, Ventricular arrhythmia I49.9 [facility] [id number] [place] [address] 67837- 8532 February, [facility] [address] 42297- 5154 Dec, Thoracic neuritis M54.14 ; Lumbar neuritis M54.16 and Epileptic seizure, generalized G40.309 [place] [address] 70924- 2945 Sep, Epileptic seizure, generalized G40.309 and Lumbar neuritis M54.16 [place] [id number] [place] [address] 58829- 8235 Aug, Thoracic neuritis M54.14 and Lumbar neuritis M54.16 [facility] [id number] [place] [address] 69392- 1164 Jun, [place] [id number] [place] [address] 38298- 8072 11 Jun, 2017 Abscess of leg, left L02.416 [facility] [id number] [place] [address] 08103- 6992 May, Lumbar neuritis M54.16 ; Thoracic neuritis M54.14 ; Intracranial injury, without loss of consciousness, subsequent encounter S06.9X0D and Cardiomyopathy I42.9 [facility] [id number] [place] [address] 77836- 7714 Apr, Lumbar neuritis M54.16 [facility] [id number] [place] [address] 96235- 3664 Apr, [facility] [id number] [place] [address] 67166- 6923 Apr, Elevated liver enzymes R74.8 and Renal insufficiency N28.9 [facility] [id number] [place] [address] 94086- 5027 Apr, Lumbar neuritis M54.16 ; Thoracic neuritis M54.14 ; Hypertension, benign I10 ; Cardiomyopathy I42.9 and Epileptic seizure, generalized G40.309 [facility] [id number] [place] [address] 52628- 1178 Mar, [facility] [id number] [place] [address] 38238- 0405 February, [facility] [id number] [place] [address] 14038- 6305 February, Lumbar neuritis M54.16 ; Thoracic neuritis M54.14 ; Hypertension, benign I10 ; Cardiomyopathy I42.9 and Epileptic seizure, generalized G40.309 [facility] [id number] [place] [address] 13120- 8585 Dec, [facility] [id number] [place] [address] 03751- 9943 Sep, Epigastric mass R19.06 [place] [id number] [place] [address] 80092- 2994 Sep, Epigastric mass R19.06 [facility] [id number] [place] [address] 32758- 1450 Sep, [facility] [id number] [place] [address] 34929- 9827 Sep, Epigastric mass R19.06 [place] [id number] [place] [address] 08490- 0863 Sep, Epigastric mass R19.06 and Lung mass R91.8 [facility] [id number] [place] [address] 73376 -9940 Jul, Shortness of breath R06.02 ; Dysuria R30.0 and Acute bronchitis, unspecified organism J20.9 [place] [address] 81469- 1922 Jul, [place] [address] 54366- 0675 15 Jun, 2016 Seizures R56.9 ; Thoracic neuritis M54.14 ; Lumbar neuritis M54.16 and GERD (gastroesophageal reflux disease) K21.9 [facility] [address] 51539 -9550 Jan, [place] [address] 05728- 8802 Sep, [place] [address] 12278- 6982 Sep, Intracranial injury, without loss of consciousness, subsequent encounter S06.9X0D ; Cardiomyopathy I42.9 ; GERD (gastroesophageal reflux disease) K21.9 ; Hypertension, benign I10 ; Thoracic neuritis M54.14 and Lumbar neuritis M54.16 [place] [id number] [place] [address] 54167- 1551 Mar, [address] 64759- 2408 Mar, Coronary atherosclerosis of unspecified type of vessel, ely shoshone or graft 414.00 ; Unspecified essential hypertension 401.9 ; Thoracic or lumbosacral neuritis or radiculitis, unspecified 724.4 and Other convulsions 780.39 [place] [address] 73548- 8974 14 Jan, 2014 [facility] [place] [facility] [address] [id number] [place] [address]- 3366 13 Jan, 2014 [facility] [place] [facility] [address] [id number] [place] 1596 Nov, 2014 [facility] [place] [facility] [address] [facility] [id number] [place] [address]- 9436 Nov, 2014 [facility] [place] [facility] [address] [id number] [place] 3687 Nov, 2014 [facility] [place] [facility] [address] [id number] [place] [address]- 4851 Nov, 2014 [facility] [place] [facility] [address] [facility] [id number] [place] [address]- 8863 16 Nov, 2014 [facility] [place] [facility] [address] [facility] [id number] [place] [address]- 1155 16 Nov, 2014 [facility] [place] [facility] [address] [facility] [id number] [place] [address]- 9477 Nov, 2014 [facility] [place] [facility] [address] [facility] [id number] [place] [address]- 3863 Nov, 2014 [facility] [place] [facility] [address] [facility] [id number] [place] [address]- 2944 Nov, 2014 [facility] [place] [facility] [address] [facility] [id number] [place] [address]- 7828 Nov, 2014 [facility] [place] [facility] [address] [facility] [id number] [place] 2364 Sep, [facility] [place] [facility] [address] [facility] [id number] [place] [address]- 8615 Sep, [facility] [place] [facility] [address] [facility] [id number] [place] 4919 Aug, [facility] [place] [facility] [address] [facility] [id number] [place] 0372 Aug, [facility] [place] [facility] [address] [id number] [place] [address]- 8209 Aug, [facility] [place] [facility] [address] [id number] [place] [address]- 6428 Aug, [facility] [place] [facility] [address] [id number] [place] [address]- 9731 Jul, [facility] [place] [facility] [address] [id number] [place] [address]- 1993 Jul, [facility] [place] [facility] [address] [id number] [place] [address]- 3132 Jul, [facility] [place] [facility] [address] [id number] [place] [address]- 6212 Jul, [facility] [place] [facility] [address] [id number] [place] [address]- 1166 Jun, [facility] [place] [facility] [address] [id number] [place] [address]- 5486 Jun, [facility] [place] [facility] [address] [id number] [place] [address]- 8235 Jun, [facility] [place] [facility] [address] [id number] [place] [address]- 9359 May, [facility] [place] [facility] [address] [id number] [place] [address]- 1986 May, [facility] [place] [facility] [address] [id number] [place] [address]- 4897 May, [facility] [place] [facility] [address] [id number] [place] [address]- 4462 May, [facility] [place] [facility] [address] [id number] [place] [address]- 5662 May, [facility] [place] [facility] [address] [id number] [place] [address]- 6142 May, [facility] [place] [facility] [address] [id number] [place] [address]- 2597 May, [facility] [address] [id number] [place] [address]- 6790 May, [facility] [place] [facility] [address] [id number] [place] [address]- 8485 February, [facility] [place] [facility] [address] [id number] [place] [address]- 0983 February, [facility] [place] [facility] [address] [id number] [place] [address]- 2638 Jan, [facility] [place] [facility] [address] [id number] [place] [address]- 2216 Jan, [facility] [place] [facility] [address] [id number] [place] [address]- 0387 Jan, [facility] [place] [facility] [address] [id number] [place] [address]- 2104 Jan, [facility] [place] [facility] [address] [id number] [place] [address]- 1431 Nov, [facility] [place] [facility] [address] [id number] [place] [address]- 5773 Nov, [facility] [place] [facility] [address] [id number] [place] [address]- 4951 Nov, [facility] [place] [facility] [address] [id number] [place] [address]- 1119 Nov, [facility] [place] [facility] [address] [id number] [place] [address]- 8253 Sep, [facility] [place] [facility] [address] [id number] [place] 1157 Sep, [facility] [place] [facility] [address] [id number] [place] [address]- 5164 Sep, [facility] [place] [facility] [address] [id number] [place] [address]- 3125 Sep, [facility] [place] [facility] [address] [id number] [place] [address]- 2546 Sep, [facility] [address] [id number] [place] [address]- 2546 Sep, [facility] [address] [id number] [place] [address]- 2546 Jul, [facility] [address] [id number] [place] [address]- 2546 Jul, [facility] [address] [id number] [place] [address]- 2540 Jun, [facility] [address] [id number] [place] [address]- 2546 Jun, [facility] [address] [id number] [place] [address]- 2546 Jun, [facility] [address] [id number] [place] [address]- 4646 May, [facility] [address] [place] [id number] May [facility] [address] [id number] [place] [address]- 2546 May, [facility] [address] [id number] [place] [address]- 2546 May, [facility] [address] [id number] [place] [address]- 2546 May, [facility] [address] [id number] [place] [address]- 2546 May, [facility] [address] [id number] [place] [address]- 2546 May, [facility] [address] [id number] [place] [address]- 2546 Apr, [facility] [address] [id number] [place] [address]- 6605 Apr, [facility] [address] [id number] [place] [address]- 8571 Apr, [facility] [place] [facility] [address] [id number] [place] [address]- 3536 Apr, [facility] [address] [id number] [place] [address]- 3418 Mar, [facility] [place] [facility] [address] [id number] [place] [address]- 0825 February, [facility] [address] [id number] [place] [address]- 1789 Jan, [facility] [place] [facility] [address] [id number] [place] [address]- 9526 Dec, [facility] [place] [facility] [address] [id number] [place] [address]- 2999 Dec, [facility] [place] [facility] [address] [id number] [place] [address]- 3087 Dec, [facility] [place] [facility] [address] [id number] [place] [address]- 0483 Nov, [facility] [place] [facility] [address] [id number] [place] [address]- 1035 Nov, [facility] [place] [facility] [address] [id number] [place] [address]- 1339 Nov, [facility] [place] [facility] [address] [id number] [place] [address]- 2049 Oct, [facility] [place] [facility] [address] [id number] [place] [address]- 4368 Oct, [facility] [place] [facility] [address] [id number] [place] [address]- 0946 Sep, [facility] [place] [facility] [address] [id number] [place] [address]- 5064 Sep, [facility] [place] [facility] [address] [id number] [place] [address]- 0546 Sep, [facility] [place] [facility] [address] [id number] [place] [address]- 4153 Sep, [facility] [place] [facility] [address] [id number] [place] [address]- 1716 Sep, [facility] [place] [facility] [address] [id number] [place] [address]- 1653 Sep, [facility] [place] [facility] [address] [id number] [place] [address]- 5946 Aug, [facility] [place] [facility] [address] [id number] [place] [address]- 9902 Aug, [facility] [place] [facility] [address] [id number] [place] [address]- 6958 Aug, [facility] [place] [facility] [address] [id number] [place] [address]- 5234 Aug, [facility] [place] [facility] [address] [id number] [place] [address]- 1552 Aug, [facility] [place] [facility] [address] [id number] [place] [address]- 0105 Aug, [facility] [place] [facility] [address] [facility] [id number] [place] [address]- 9091 Aug, [facility] [place] [facility] [address] [id number] [place] [address]- 0309 Aug, [facility] [place] [facility] [address] [id number] [place] [address]- 6719 Aug, [facility] [place] [facility] [address] [id number] [place] [address]- 8619 Aug, [facility] [place] [facility] [address] [facility] [id number] [place] [address]- 4218 Jul, [facility] [place] [facility] [address] [id number] [place] [address]- 5080 Jul, [facility] [place] [facility] [address] [id number] [place] [address]- 2023 Jul, [facility] [place] [facility] [address] [id number] [place] [address]- 1135 Jul, [facility] [place] [facility] [address] [id number] [place] [address]- 1532 Jul, [facility] [place] [facility] [address] [id number] [place] [address], [place] [address]- 9040 Jul, [facility] [place] [facility] [address] [id number] [place] [address]- 7337 Jul, [facility] [place] [facility] [address] [id number] [place] [address]- 6307 Jul, [facility] [place] [facility] [address] [id number] [place] [address]- 0029 Jul, [facility] [place] [facility] [address] [id number] [place] [address]- 4904 Jul, [facility] [place] [facility] [address] [id number] [place] [address]- 5676 Jul, [facility] [place] [facility] [address] [id number] [place] [address]- 4275 Jul, [facility] [place] [facility] [address] [id number] [place] [address]- 4065 Jul, [facility] [place] [facility] [address] [id number], [place] [address]- 9785 Jul, [facility] [place] [facility] [address] [id number] [place] [address]- 5699 Jul, [facility] [place] [facility] [address] [id number] [place] [address]- 8812 28 Jun, 2012 [facility] [place] [facility] [address] [id number] [place] [address]- 4445 24 Jun, 2012 [facility] [place] [facility] [address] [id number] [place] [address]- 2546 Jun, [facility] [place] [facility] [address] [id number] [place] [address]- 4250 May, [facility] [place] [facility] [address] [id number] [place] [address]- 3776 May, [facility] [place] [facility] [address] [id number] [place] [address]- 1642 Mar, [facility] [place] [facility] [address] [id number] [place] [address]- 6630 Mar, [facility] [place] [facility] [address] [id number] [place] [address]- 6098 February, [facility] [place] [facility] [address] [id number] [place] [address]- 1522 February, [facility] [place] [facility] [address] [id number] [place] [address]- 1656 Nov, [facility] [place] [facility] [address] [id number] [place] [address]- 1272 Oct, [facility] [place] [facility] [address] [id number] [place] [address]- 5368 Oct, [facility] [place] [facility] [address] [id number] [place] [address]- 9863 Oct, [facility] [place] [facility] [address] [id number] [place] [address]- 6490 Aug, [facility] [place] [facility] [address] [id number] [place] [address]- 9473 Jul, [facility] [place] [facility] [address] [id number] [place] [address]- 6878 Sep, [facility] [place] [facility] [address] [id number] [place] [address]- 4512 Aug, [facility] [place] [facility] [address] [id number] [place] [address]- 8870 Jul, [facility] [place] [facility] [address] [id number] [address]- 5586 14 Apr, 2010 [facility] [address] [id number] [address]- 9007 February, [facility] [address], [place] [address]- 3974 Sep, [facility] [address], [place] [address]- 0978 Sep, [facility] [address], [place] [address]- 9133 Sep, [facility] [address], [place] [address]- 5431 Apr, [facility] [address], [place] [address]- 6630 Mar, [facility] [address], [place] [address]- 7829 February, [facility] [address], [place] [address]- 9366 Jan, [facility] [address] [place] [address]- 3562 Jul, IMMUNIZATIONS No Known Immunizations SOCIAL HISTORY Never Assessed REASON FOR VISIT Pain-knee&foot -[place] PLAN OF CARE Activity Details Pending Test PDM - 09 PANEL (PROFILE 1) VITAL SIGNS Height 63 in 2018-07-13 Weight 189.1 lbs 2018-07-13 Temperature 97.6 degrees Fahrenheit 2018-07-13 Heart Rate 82 bpm 2018-07-13 Respiratory Rate 20 2018-07-13 Oximetry 97 % 2018-07-13 BMI 33.49 kg/m2 2018-07-13 Blood pressure systolic 122 mmHg 2018-07-13 Blood pressure diastolic 70 mmHg 2018-07-13 MEDICATIONS Medication Instructions Dosage Frequency Start Date End Date Duration Status Losartan Potassium 100 mg Orally Once a day 1 tablet 24h Active Spironolactone 25 MG Orally Once a day 1 tablet 24h Active Oxcarbazepine 600 MG Orally Twice a day 1 tablet 12h Active Amitriptyline HCl 50 mg Orally Once a day 1 tablet 24h Jul, 30 day(s) Active HydrALAZINE HCl 50 mg Orally 3 times a day 1 tablet 8h Active Lorazepam 0.5 MG Active Acid Recreational Therapy Technician Active Clonidine HCl 0.2 MG Orally Twice a day 1 tablet 12h Active HydrOXYzine Pamoate 25 MG Orally every 8 hrs 1 capsule as needed 8h May Active Phenobarbital 97.2 mg Orally Once a day 1 tablet 24h February, 28 days Active RESULTS No Results PROCEDURES Procedure Date Ordered Result Body [facility] Jul [facility], 2018 INSTRUCTIONS MEDICATIONS ADMINISTERED No Known Medications MEDICAL (GENERAL) HISTORY Type Description Date Medical History 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 - UTI 04/2018-05/2018
--- OUTSIDE RECORDS SUMMARY | 2018-07-30 08:14 | XMS REPORT ---
Author Author TRACEE LANGE Organization [facility] Address [address] [place] [address] Care Team Providers Care Director Of Sustainability Name Role Phone TRACEE LANGE Unavailable PROBLEMS Type Condition ICD9-CM Code SRP27-CK Code Onset Dates Condition Status SNOMED Code Problem Thoracic neuritis M54.14 Active 79467363 Problem Intracranial injury, without loss of consciousness, subsequent encounter S06.9X0D Active 235510831 Problem Ventricular arrhythmia I49.9 Active 94239868 Problem Epileptic seizure, generalized G40.309 Active 45182803 Problem Hypertension, benign I10 Active 06086336 Problem Lumbar neuritis M54.16 Active 721831826 Problem GERD (gastroesophageal reflux disease) K21.9 Active 444047087 Problem Cardiomyopathy I42.9 Active [id number] ALLERGIES No Information ENCOUNTERS Encounter Location Date Diagnosis [facility] [id number] [place] [address] 97142- 7535 Jul, [facility] [id number] [place] [address] 76795- 3190 May, [facility] [id number] [place] [address] 20699- 4950 May, [facility] [id number] [place] [address] 75560- 3992 May, [facility] [id number] [place] [address] 41668- 2803 May, Seizures R56.9 [facility] [id number] [place] [address] 73238- 8602 May, [facility] [id number] [place] [address] 25846- 1779 May, Delirium R41.0 [facility] [id number] [place] [address] 27333- 8805 Apr, [facility] [id number] [place] [address] 75925- 4928 February, Ventricular arrhythmia I49.9 [facility] [id number] [place] [address] 52143- 4130 February, [facility] [address] 60826- 8254 Dec, Thoracic neuritis M54.14 ; Lumbar neuritis M54.16 and Epileptic seizure, generalized G40.309 [place] [address] 96437- 8357 Sep, Epileptic seizure, generalized G40.309 and Lumbar neuritis M54.16 [place] [id number] [place] [address] 86551- 1875 Aug, Thoracic neuritis M54.14 and Lumbar neuritis M54.16 [place] [id number] [place] [address] 54414- 5547 Jun, [place] [address] 59839- 0415 Jun, Abscess of leg, left L02.416 [place] [id number] [place] [address] 48564- 6468 May, Lumbar neuritis M54.16 ; Thoracic neuritis M54.14 ; Intracranial injury, without loss of consciousness, subsequent encounter S06.9X0D and Cardiomyopathy I42.9 [facility] [id number] [place] [address] 13004- 1237 Apr, Lumbar neuritis M54.16 [place] [id number] [place] [address] 70049- 5319 Apr, [facility] [id number] [place] [address] 25089- 4719 Apr, Elevated liver enzymes R74.8 and Renal insufficiency N28.9 [facility] [id number] [place] [address] 06005- 5652 Apr, Lumbar neuritis M54.16 ; Thoracic neuritis M54.14 ; Hypertension, benign I10 ; Cardiomyopathy I42.9 and Epileptic seizure, generalized G40.309 [place] [id number] [place] [address] 92026- 5377 Mar, [facility] [address] 88004- 6352 February, [place] [id number] [place] [address] 19488- 6718 February, Lumbar neuritis M54.16 ; Thoracic neuritis M54.14 ; Hypertension, benign I10 ; Cardiomyopathy I42.9 and Epileptic seizure, generalized G40.309 [place] [id number] [place] [address] 22248- 3025 Dec, [facility] [address] 25529- 6915 Sep, Epigastric mass R19.06 [place] [address] 00903- 1195 Sep, Epigastric mass R19.06 [place] [id number] [place] [address] 48545- 8568 Sep, [facility] [id number] [place] [address] 98460- 0734 Sep, Epigastric mass R19.06 [place] [id number] [place] [address] 36024- 4725 Sep, Epigastric mass R19.06 and Lung mass R91.8 [facility] [id number] [place] [address] 12869 -2995 Jul, Shortness of breath R06.02 ; Dysuria R30.0 and Acute bronchitis, unspecified organism J20.9 [facility] [id number] [place] [address] 71297- 8320 Jul, [facility] [address] 53995- 7677 Jun, Seizures R56.9 ; Thoracic neuritis M54.14 ; Lumbar neuritis M54.16 and GERD (gastroesophageal reflux disease) K21.9 [facility] [address] 70410 -5562 Jan, [facility] [address] 63907- 2509 Sep, [place] [address] 70943- 6167 Sep, Intracranial injury, without loss of consciousness, subsequent encounter S06.9X0D ; Cardiomyopathy I42.9 ; GERD (gastroesophageal reflux disease) K21.9 ; Hypertension, benign I10 ; Thoracic neuritis M54.14 and Lumbar neuritis M54.16 [facility] [address] 17326- 2670 Mar, [place] [address] 00428- 0898 Mar, Coronary atherosclerosis of unspecified type of vessel, [place] or graft 414.00 ; Unspecified essential hypertension 401.9 ; Thoracic or lumbosacral neuritis or radiculitis, unspecified 724.4 and Other convulsions 780.39 [place] [id number] [place] [address] 80527- 8165 Jan, [facility] [address] 15359- 6008 Jan, [facility] [address] 57109- 5768 Nov, [facility] [address] 76798- 2411 Nov, [facility] [address] 62563- 1103 Nov, 2014 [facility] [place] [facility] [address] [id number] [place] [address]- 9338 Nov, 2014 [facility] [place] [facility] [address] [facility] [id number] [place] 4736 Nov, 2014 [facility] [place] [facility] [address] [facility]NOTE [facility]] [id number] [place] [address]- 1966 Nov, 2014 [facility] [place] [facility] [address] [facility]] [id number] [place] [address]- 5623 Nov, 2014 [facility] [place] [facility] [address] [facility]] [id number] [place] [address]- 0317 Nov, 2014 [facility] [place] [facility] [id number] [place] [address]- 0305 Nov, 2014 [facility] [place] [facility] [address] [id number] [place] [address]- 6404 Nov, 2014 [facility] [place] [facility] [address] [facility] [id number] [place] [address]- 8765 Sep, [facility] [place] [facility] [id number] [place] [address]- 0385 Sep, [facility] [place] [facility] [address] [id number] [place] [address]- 8737 Aug, [facility] [place] [facility] [address] [facility]] [id number] [place] [address]- 5808 Aug, [facility] [place] [facility] [address] [facility]] [id number] [place] [address]- 0721 Aug, [facility] [place] [facility] [address] [facility] 3] [id number] [place] [address]- 3966 Aug, [facility] [place] [facility] [address] [facility]] [id number] [place] [address]- 4663 Jul, [facility] [place] [facility] [address] [facility]] [id number] [place] [address]- 0763 Jul, [facility] [place] [facility] [address] [id number] [place] [address]- 6756 Jul, [facility] [place] [facility] [address] [id number] [place] [address]- 9658 Jul, [facility] [place] [facility] [address] [id number] [place] [address]- 0122 Jun, [facility] [place] [facility] [address] [id number] [place] [address]- 1410 Jun, [facility] [place] [facility] [address] [id number] [place] [address]- 5902 Jun, [facility] [place] [facility] [address] [id number] [place] [address]- 8746 May, [facility] [place] [facility] [address] [id number] [place] [address]- 8254 May, [facility] [place] [facility] [address] [id number] [place] [address]- 3039 May, [facility] [place] [facility] [address] [id number] [place] [address]- 3660 May, [facility] [place] [facility] [address] [id number] [place] [address]- 7711 May, [facility] [place] [facility] [address] [id number] [place] [address]- 9468 May, [facility] [place] [facility] [address] [id number] [place] [address]- 4298 May, [facility] [place] [facility] [address] [id number] [place] [address]- 0709 May, [facility] [place] [facility] [address] [id number] [place] [address]- 3453 February, [facility] [place] [facility] [address] [id number] [place] [address]- 5663 February, [facility] [place] [facility] [address] [id number] [place] [address]- 1288 Jan, [facility] [place] [facility] [address] [id number] [place] 4770 Jan, [facility] [place] [facility] [address] [id number] [place] [address]- 2784 Jan, [facility] [place] [facility] [address] [facility] 3] [id number] [place] [address]- 9233 Jan, [facility] [place] [facility] [address] [id number] [place] [address]- 8052 Nov, [facility] [place] [facility] [address] [id number] [place] [address]- 0492 Nov, [facility] [place] [facility] [address] [facility] 3] [id number] [place] [address]- 5220 Nov, [facility] [place] [facility] [address] [facility]NOTE 3] [id number] [place] [address]- 4794 Nov, [facility] [place] [facility] [address] [facility] 3] [id number] [place] [address]- 9978 Sep, [facility] [place] [facility] [address] [facility] 3] [id number] [place] [address]- 1231 Sep, [facility] [place] [facility] [address] [facility]NOTE 3] [id number] [place] [address]- 8270 Sep, [facility] [place] [facility] [address] [facility]NOTE 3] [id number] [place] [address]- 5069 07 Sep, 2013 [facility] [place] [facility] [address] [facility]NOTE 3] [id number] [place] [address]- 5716 Sep, [facility] [place] [facility] [address] [facility]NOTE 3] [id number] [place] [address]- 7419 Sep, [facility] [place] [facility] [address] [facility] 3] [id number] [place] 0823 Jul, [facility] [place] [facility] [address] [facility] 3] [id number] [place] 7313 Jul, [facility] [place] [facility] [address] [id number] [place] [address]- 0954 Jun, [facility] [address] [id number] [place] [address]- 9610 Jun, [facility] [address] [id number] [place] [address]- 7966 Jun, [facility] [address] [id number] [place] [address]- 8747 May, [facility] [address] [facility] [place] [id number] May [facility] [address] [id number] [place] [address]- 6230 May, [facility] [address] [id number] [place] [address]- 0886 May, [facility] [address] [id number] [place] [address]- 3913 May, [facility] [address] [id number] [place] [address]- 7840 May, [facility] [address] [id number] [place] [address]- 2321 May, [facility] [address] [id number] [place] [address]- 0403 Apr, [facility] [address] [id number] [place] [address]- 5772 Apr, [facility] [address] [id number] [place] [address]- 2546 Apr, [facility] [address] [id number] [place] [address]- 0826 Apr, [facility] [address] [id number] [place] [address]- 2546 Mar, [facility] [address] [id number] [place] [address]- 8675 February, [facility] [address] [id number] [place] [address]- 7611 Jan, [facility] [address] [id number] [place] [address]- 9443 Dec, [facility] [address] [id number] [place] [address]- 1557 Dec, [facility] [place] [facility] [address] [id number] [place] [address]- 3557 Dec, [facility] [address] [id number] [place] [address]- 5580 Nov, [facility] [address] [id number] [place] [address]- 0667 Nov, [facility] [address] [id number] [place] [address]- 2826 Nov, [facility] [address] [id number] [place] [address]- 1546 Oct, [facility] [address] [id number] [place] [address]- 1933 Oct, [facility] [address] [facility] 3[facility] [id number] [place] [address]- 5453 Sep, [facility] [address] [id number] [place] [address]- 4399 Sep, [facility] [place] [facility] [address] [id number] [place] [address]- 3261 Sep, [facility] [place] [facility] [address] [id number] [place] [address]- 0692 Sep, [facility] [place] [facility] [address] [id number] [place] [address]- 2173 Sep, [facility] [place] [facility] [address] [facility]NOTE 3] [id number] [place] [address]- 8062 Sep, [facility] [place] [facility] [address] [id number] [place] [address]- 2607 Aug, [facility] [place] [facility] [address] [id number] [place] [address]- 9029 Aug, [facility] [place] [facility] [address] [id number] [place] [address]- 5752 Aug, [facility] [place] [facility] [address] [id number] [place] [address]- 0803 Aug, [facility] [place] [facility] [address] [id number] [place] [address]- 0495 Aug, [facility] [place] [facility] [address] [id number] [place] [address]- 5537 Aug, [facility] [place] [facility] [address] [id number] [place] [address]- 2137 Aug, [facility] [place] [facility] [address] [id number] [place] [address]- 8485 Aug, [facility] [place] [facility] [address] [id number] [place] [address]- 5597 Aug, [facility] [place] [facility] [address] [id number] [place] [address]- 1569 Aug, [facility] [place] [facility] [address] [facility]NOTE 3] [id number] [place] [address]- 8955 Jul, [facility] [place] [facility] [address] [id number] [place] [address]- 5096 Jul, [facility] [place] [facility] [address] [id number] [place] [address]- 9635 Jul, [facility] [place] [facility] [address] [id number] [place] [address]- 4433 Jul, [facility] [place] [facility] [address] [id number] [place] [address]- 7964 Jul, [facility] [place] [facility] [address] [id number] [place] [address]- 5332 Jul, [facility] [place] [facility] [address] [id number] [place] [address]- 9702 Jul, [facility] [place] [facility] [address] [id number] [place] [address]- 3795 Jul, [facility] [place] [facility] [address] [id number] [place] [address]- 0475 18 Jul, 2012 [facility] [place] [facility] [address] [id number] [place] [address]- 6660 Jul, [facility] [place] [facility] [address] [id number] [place] [address]- 7229 Jul, [facility] [place] [facility] [address] [id number] [place] [address]- 7477 Jul, [facility] [place] [facility] [address] [id number] [place] [address]- 6013 Jul, [facility] [place] [facility] [address] [id number] [place] [address]- 0076 Jul, [facility] [place] [facility] [address] [id number] [place] [address]- 9196 Jul, [facility] [place] [facility] [address] [id number] [place] [address]- 1405 28 Jun, 2012 [facility] [place] [facility] [address] [id number] [place] [address]- 5469 24 Jun, 2012 [facility] [place] [facility] [address] [id number] [place] [address]- 4282 19 Jun, 2012 [facility] [place] [facility] [address] [id number] [place] [address]- 8372 May, [facility] [place] [facility] [address] [id number] [place] [address]- 1697 May, [facility] [place] [facility] [address] [id number] [place] [address]- 4680 Mar, [facility] [place] [facility] [address] [id number] [place] [address]- 0796 Mar, [facility] [address] [id number] [place] [address]- 1906 February, [facility] [place] [facility] [address] [id number] [place] [address]- 8906 February, [facility] [place] [facility] [address] [id number] [place] [address]- 9105 Nov, [facility] [place] [facility] [address] [id number] [place] [address]- 8705 Oct, [facility] [place] [facility] [address] [id number] [place] [address]- 3323 Oct, [facility] [place] [facility] [address] [id number] [place] [address]- 3720 Oct, [facility] [place] [facility] [address] [id number] [place] [address]- 5563 Aug, [facility] [place] [facility] [address] [id number] [place] [address]- 4320 Jul, [facility] [place] [facility] [address] [id number] [place] [address]- 8222 Sep, [facility] [place] [facility] [address] [id number] [place] [address]- 6397 Aug, [facility] [place] [facility] [address] [id number] [place] [address]- 0[address] Jul, [facility] [place] [facility] [address] [id number] [place] [address] Apr, [facility] [place] [facility] [address] [id number] [place] [address] February, [facility] [place] [facility] [address] [id number] [place] [address] Sep, [facility] [place] [facility] [address] [id number] [place] [address] Sep, [facility] [place] [facility] [address] [facility]NOTE 3] [id number] [place] [address] Sep, [facility] [id number] [address] Apr, [facility] [id number] [address] Mar, [place] [address] [id number] [address] February, [facility] [id number] [address] Jan, [place] [id number] [place] [address] Jul, IMMUNIZATIONS No Known Immunizations SOCIAL HISTORY Never Assessed REASON FOR VISIT blisters on hands PLAN OF CARE VITAL SIGNS MEDICATIONS Medication Instructions Dosage Frequency Start Date End Date Duration Status Diflucan 150 MG Orally Once a day 1 tablet 24h May, May, 03 days Active HydrOXYzine Pamoate 25 MG Orally every 8 hrs 1 capsule as needed 8h May Active RESULTS No Results PROCEDURES No Known procedures INSTRUCTIONS MEDICATIONS ADMINISTERED No Known Medications MEDICAL (GENERAL) HISTORY Type Description Date Medical History 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
--- OUTSIDE RECORDS SUMMARY | 2018-07-30 08:14 | XMS REPORT ---
Author Author TRACEE LANGE Organization [facility] Address [address] [place] [address] Care Team Providers Care Engineer Conductor Name Role Phone TRACEE LANGE Unavailable PROBLEMS Type Condition ICD9-CM Code DGJ96-PA Code Onset Dates Condition Status SNOMED Code Problem Thoracic neuritis M54.14 Active 16566825 Problem Intracranial injury, without loss of consciousness, subsequent encounter S06.9X0D Active 614518902 Problem Ventricular arrhythmia I49.9 Active 77665232 Problem Epileptic seizure, generalized G40.309 Active 84387294 Problem Hypertension, benign I10 Active 05929859 Problem Lumbar neuritis M54.16 Active 237351552 Problem GERD (gastroesophageal reflux disease) K21.9 Active 572134136 Problem Cardiomyopathy I42.9 Active 06341224 ALLERGIES No Information ENCOUNTERS Encounter Location Date Diagnosis [facility] [id number] [address] Jul, [facility] [id number] [place] [address]- [address]88 Jun, Seizures R56.9 [facility] [address] [address] May, [facility] [id number] [place] [address]- 0025 May, [facility] [id number] [place] [address]32- 8862 May, [facility] [id number] [place] [address]75- 5789 May, Seizures R56.9 [facility] [address] [address] May, [facility] [address] [address] May, Delirium R41.0 [address] [address] [address]- [address] Apr, [place] [address] [address]- [address]66 February, Ventricular arrhythmia I49.9 [address] [address] [address]- [address] February, [address] [address] [address] Dec, Thoracic neuritis M54.14 ; Lumbar neuritis M54.16 and Epileptic seizure, generalized G40.309 [address] [address] [address]- [address]14 Sep, Epileptic seizure, generalized G40.309 and Lumbar neuritis M54.16 [address] [address] [address]65- 2086 Aug, Thoracic neuritis M54.14 and Lumbar neuritis M54.16 [address] [address] [address]- 3689 Jun, [place] [address] [address]67- 8366 Jun, Abscess of leg, left L02.416 [address] [address] [address]- 5110 May, Lumbar neuritis M54.16 ; Thoracic neuritis M54.14 ; Intracranial injury, without loss of consciousness, subsequent encounter S06.9X0D and Cardiomyopathy I42.9 [place] [address] [address]- 3126 Apr, Lumbar neuritis M54.16 [place] [address] 44[address]- 6750 Apr, [place] [id number] [place] [address] 15605- 2359 Apr, Elevated liver enzymes R74.8 and Renal insufficiency N28.9 [place] [address] 62852- 3095 Apr, Lumbar neuritis M54.16 ; Thoracic neuritis M54.14 ; Hypertension, benign I10 ; Cardiomyopathy I42.9 and Epileptic seizure, generalized G40.309 [address] [address] 6[address]- 7701 Mar, [place] [address] 60658- 3646 February, [place] [address] [address]- 9245 February, Lumbar neuritis M54.16 ; Thoracic neuritis M54.14 ; Hypertension, benign I10 ; Cardiomyopathy I42.9 and Epileptic seizure, generalized G40.309 [place] [id number] [place] [address] 9[address]30- 7942 Dec, [place] [address] 00146- 5640 Sep, Epigastric mass R19.06 [place] [address] 40979- 2163 Sep, Epigastric mass R19.06 [place] [id number] [place] [address] 57336- 4473 Sep, [address] [id number] [place] [address] 62002- 2939 Sep, Epigastric mass R19.06 [address] [address] 42[address]- 4094 Sep, Epigastric mass R19.06 and Lung mass R91.8 [facility] [id number] [place] [address] 13961 -9848 Jul, Shortness of breath R06.02 ; Dysuria R30.0 and Acute bronchitis, unspecified organism J20.9 [facility] [address] [address]- 1457 Jul, [facility] [address] [address]92- 2351 15 Jun, 2016 Seizures R56.9 ; Thoracic neuritis M54.14 ; Lumbar neuritis M54.16 and GERD (gastroesophageal reflux disease) K21.9 [facility] [id number] [place] [address]2495 -8245 Jan, [place] [address] 00648- 1792 Sep, [place] [address] 87997- 5352 Sep, Intracranial injury, without loss of consciousness, subsequent encounter S06.9X0D ; Cardiomyopathy I42.9 ; GERD (gastroesophageal reflux disease) K21.9 ; Hypertension, benign I10 ; Thoracic neuritis M54.14 and Lumbar neuritis M54.16 [place] [address] 92298- 4295 Mar, [address] [address]- 1210 Mar, Coronary atherosclerosis of unspecified type of vessel, [place] or graft 414.00 ; Unspecified essential hypertension 401.9 ; Thoracic or lumbosacral neuritis or radiculitis, unspecified 724.4 and Other convulsions 780.39 [address] [id number] [place] [address] 81594- 0342 Jan, [place] [address] [address]- 0429 Jan, [place] [address] 96381- 1622 Nov, [address] [address] [place] [address]- 4224 Nov, 2014 [facility] [place] [facility] [address] [id number] [place] [address]- 9596 Nov, 2014 [facility] [place] [facility] [address] [id number] [place] [address]- 8166 Nov, 2014 [facility] [place] [facility] [address] [id number] [place] [address]- 6106 Nov, 2014 [facility] [place] [facility] [address] [id number] [place] [address]- 5127 Nov, 2014 [facility] [place] [facility] [address] [id number] [place] [address]- 1708 Nov, 2014 [facility] [place] [facility] [address] [facility] [id number] [place] [address]- 2971 Nov, 2014 [facility] [place] [facility] [address] [facility] [id number] [place] [address]- 5304 Nov, 2014 [facility] [place] [facility] [address] [facility] [id number] [place] [address]- 9120 Nov, 2014 [facility] [place] [facility] [address] [facility] [id number] [place] [address]- 5987 Sep, [facility] [place] [facility] [address] [facility] [id number] [place] [address]- 5846 Sep, [facility] [place] [facility] [address] [facility] [id number] [place] [address]- 2542 Aug, [facility] [place] [facility] [address] [id number] [place] [address]- 4236 Aug, [facility] [place] [facility] [address] [facility] [id number] [place] [address]- 2541 Aug, [facility] [place] [facility] [address] [facility] [id number] [place] [address]- 0613 Aug, [facility] [place] [facility] [address] [facility] [id number] [place] [address]- 0665 Jul, [facility] [place] [facility] [address] [id number] [place] [address]- 2227 Jul, [facility] [place] [facility] [address] [id number] [place] [address]- 3180 Jul, [facility] [place] [facility] [address] [id number] [place] [address]- 2485 Jul, [facility] [place] [facility] [address] [id number] [place] [address]- 8756 Jun, [facility] [place] [facility] [address] [id number] [place] [address]- 8766 Jun, [facility] [place] [facility] [address] [id number] [place] [address]- 2018 Jun, [facility] [place] [facility] [address] [id number] [place] [address]- 9105 May, [facility] [place] [facility] [address] [id number] [place] [address]- 4688 May, [facility] [place] [facility] [address] [id number] [place] [address]- 1255 May, [facility] [place] [facility] [address] [id number] [place] [address]- 0282 May, [facility] [place] [facility] [address] [id number] [address]- 5959 May, [facility] [place] [facility] [address] [id number] [address]- 3254 May, [facility] [place] [facility] [address] [id number] [place] [address]- 4492 May, [facility] [place] [facility] [address] [id number] [place] [address]- 9249 May, [facility] [place] [facility] [address] [id number] [place] [address]- 4232 February, [facility] [place] [facility] [address] [id number] [place] [address]- 4721 February, [facility] [place] [facility] [address] [id number] [place] [address]- 8478 Jan, [facility] [place] [facility] [address] [id number] [place] [address]- 3598 Jan, [facility] [place] [facility] [address] [id number] [place] [address]- 0500 Jan, [facility] [place] [facility] [address] [id number] [place] [address]- 2372 Jan, [facility] [place] [facility] [address] [id number] [place] [address]- 9332 Nov, [facility] [place] [facility] [address] [facility] [id number] [place] [address]- 5462 Nov, [facility] [place] [facility] [address] [facility] [id number] [place] [address]- 7487 Nov, [facility] [place] [facility] [address] [facility] [id number] [place] [address]- 2493 Nov, [facility] [place] [facility] [address] [facility] [id number] [place] [address]- 1757 Sep, [facility] [place] [facility] [address] [facility] [id number] [place] [address]- 4922 Sep, [facility] [place] [facility] [address] [facility] [id number] [place] [address]- 2076 Sep, [facility] [place] [facility] [address] [id number] [place] [address]- 1997 07 Sep, 2013 [facility] [place] [facility] [address] [id number] [place] [address]- 2389 Sep, [facility] [place] [facility] [address] [facility] [id number] [place] [address]- 2546 Sep, [facility] [place] [facility] [address] [facility] [id number] [place] [address]- 8664 Jul, [facility] [address] [id number] [place] [address]- 9236 Jul, [facility] [address] [id number] [place] [address]- 6926 Jun, [facility] [address] [id number] [place] [address]- 4746 Jun, [facility] [address] [id number] [place] [address]- 1096 Jun, [facility] [address] [id number] [place] [address]- 7709 May, [facility] [address] [place] [id number] May [facility] [address] [id number] [place] [address]- 4897 May, [facility] [address] [id number] [place] [address]- 5836 May, [facility] [address] [id number] [place] [address]- 3862 May, [facility] [address] [id number] [place] [address]- 8156 May, [facility] [address] [id number] [place] [address]- 9236 May, [facility] [address] [id number] [place] [address]- 9076 Apr, [facility] [address] [id number] [place] [address]- 5055 Apr, [facility] [address] [id number] [place] [address]- 2186 Apr, [facility] [address] [id number] [place] [address]- 2546 Apr, [facility] [address] [id number] [place] [address]- 6396 Mar, [facility] [address] [id number] [place] [address]- 1816 February, [facility] [place] [facility] [address] [id number] [place] [address]- 8505 Jan, [facility] [place] [facility] [address] [id number] [place] [address]- 1219 Dec, [facility] [place] [facility] [address] [id number] [place] [address]- 2611 Dec, [facility] [place] [facility] [address] [id number] [place] [address]- 9104 Dec, [facility] [place] [facility] [address] [id number] [place] [address]- 9449 Nov, [facility] [place] [facility] [address] [id number] [place] [address]- 8890 Nov, [facility] [place] [facility] [address] [id number] [place] [address]- 8406 Nov, [facility] [place] [facility] [address] [id number] [place] [address]- 9756 Oct, [facility] [place] [facility] [address] [id number] [place] [address]- 7417 Oct, [facility] [place] [facility] [address] [id number] [place] [address]- 3824 Sep, [facility] [place] [facility] [address] [id number] [address]- 1145 Sep, [facility] [place] [facility] [address] [id number] [place] [address]- 9618 Sep, [facility] [place] [facility] [address] [id number] [place] [address]- 0889 Sep, [facility] [place] [facility] [address] [id number] [place] [address]- 8751 Sep, [facility] [place] [facility] [address] [id number] [place] [address]- 7952 Sep, [facility] [place] [facility] [address] [id number] [place] [address]- 5627 Aug, [facility] [place] [facility] [address] [id number] [place] [address]- 9413 Aug, [facility] [place] [facility] [address] [id number] [place] [address]- 3922 Aug, [facility] [place] [facility] [address] [id number] [place] [address]- 4524 Aug, [facility] [place] [facility] [address] [id number] [place] [address]- 7099 Aug, [facility] [place] [facility] [address] [id number] [place] [address]- 0157 Aug, [facility] [place] [facility] [address] [id number] [place] [address]- 1319 Aug, [facility] [place] [facility] [address] [id number] [place] [address]- 0709 Aug, [facility] [place] [facility] [address] [id number] [place] [address]- 8534 Aug, [facility] [place] [facility] [address] [facility] [id number] [place] [address]- 6598 Aug, [facility] [place] [facility] [address] [id number] [place] [address]- 1629 Jul, [facility] [place] [facility] [address] [id number] [place] [address]- 5220 Jul, [facility] [place] [facility] [address] [id number] [place] [address]- 2977 Jul, [facility] [place] [facility] [address] [id number] [place] [address]- 1076 Jul, [facility] [place] [facility] [address] [id number] [place] [address]- 6787 Jul, [facility] [place] [facility] [address] [id number] [place] [address]- 9837 24 Jul, 2012 [facility] [place] [facility] [address] [id number] [place] [address]- 9279 Jul, [facility] [place] [facility] [address] [id number] [place] [address]- 1710 Jul, [facility] [place] [facility] [address] [id number] [place] [address]- 2881 Jul, [facility] [place] [facility] [address] [id number] [place] [address]- 8526 Jul, [facility] [place] [facility] [address] [id number] [place] [address]- 7328 Jul, [facility] [place] [facility] [address] [id number] [place] [address]- 0289 Jul, [facility] [place] [facility] [address] [id number] [place] [address]- 0859 Jul, [facility] [place] [facility] [address] [id number] [place] [address]- 9690 Jul, [facility] [place] [facility] [address] [id number] [place] [address]- 8471 Jul, [facility] [place] [facility] [address] [id number] [place] [address]- 8309 Jun, [facility] [place] [facility] [address] [id number] [place] [address]- 7386 24 Jun, 2012 [facility] [place] [facility] [address] [id number] [place] [address]- 4853 19 Jun, 2012 [facility] [place] [facility] [address] [id number] [place] [address]20 May, [facility] [place] [facility] [address] [id number] [place] [address]- 8490 May, [facility] [place] [facility] [address] [id number] [place] [address]- 0736 Mar, [facility] [address] [id number] [place] [address]- 7198 Mar, [facility] [place] [facility] [address] [id number] [place] [address]- 9475 February, [facility] [address] [facility] [id number] [place] [address]- 1956 February, [facility] [place] [facility] [address] [id number] [place] [address]- 9771 Nov, [facility] [address] [id number] [place] [address]- 0266 Oct, [facility] [place] [facility] [address] [id number] [place] [address]- 3086 Oct, [facility] [address] [facility] [id number] [place] [address]- 6130 Oct, [facility] [place] [facility] [address] [id number] [place] [address]- 4297 Aug, [facility] [address] [id number] [place] [address]- 5618 Jul, [facility] [place] [facility] [address] [id number] [place] [address]- 0496 Sep, [facility] [address] [id number] [place] [address]- 6972 Aug, [facility] [place] [facility] [address] [id number] [place] [address]- 6271 Jul, [facility] [place] [facility] [address] [id number] [place] [address]- 8128 Apr, [facility] [place] [facility] [address] [facility] [id number] [place] [address]- 8897 February, [facility] [place] [facility] [address] [facility] [id number] [place] [address]- 2940 Sep, [facility] [place] [facility] [address] [id number] [address]- 0991 Sep, [facility] [address] [address]- 3884 Sep, [facility] [address] [address]- 8817 Apr, [facility] [id number] [address]- 1310 Mar, [facility] [address] [address]- 0151 February, [facility] [id number] [place] [address]- 0677 Jan, [facility] [address] [address]- 0139 Jul, IMMUNIZATIONS No Known Immunizations SOCIAL HISTORY Never Assessed REASON FOR VISIT Controlled Med Refill/Denied/ PLAN OF CARE VITAL SIGNS MEDICATIONS Unknown Medications RESULTS No Results PROCEDURES No Known procedures INSTRUCTIONS MEDICATIONS ADMINISTERED No Known Medications MEDICAL (GENERAL) HISTORY Type Description Date Medical History 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
--- OUTSIDE RECORDS SUMMARY | 2018-07-30 08:14 | XMS REPORT ---
Author Author TRACEE LANGE Organization [facility] Address [address] [place] [address] Care Team Providers Care Hot Room Attendant Name Role Phone TRACEE LANGE Unavailable PROBLEMS Type Condition ICD9-CM Code [id number] Code Onset Dates Condition Status SNOMED Code Problem Thoracic neuritis M54.14 Active 96740249 Problem Intracranial injury, without loss of consciousness, subsequent encounter S06.9X0D Active 152588375 Problem Ventricular arrhythmia I49.9 Active 41299835 Problem Epileptic seizure, generalized G40.309 Active 73293548 Problem Hypertension, benign I10 Active 64035612 Problem Lumbar neuritis M54.16 Active 744508164 Problem GERD (gastroesophageal reflux disease) K21.9 Active 926428002 Problem Cardiomyopathy I42.9 Active 98909130 ALLERGIES No Information ENCOUNTERS Encounter Location Date Diagnosis [facility] [id number] [place] [address] 83737- 7803 Jul, [facility] [id number] [place] [address] 39027- 2560 May, [facility] [id number] [place] [address] 00331- 3244 May, [facility] [id number] [place] [address] 87615- 0788 May, [facility] [id number] [place] [address] 18195- 8998 May, Seizures R56.9 [facility] [id number] [place] [address] 55671- 9359 May, [facility] [id number] [place] [address] 76907- 0526 May, Delirium R41.0 [facility] [id number] [place] [address] 58551- 8531 Apr, [facility] [id number] [place] [address] 48677- 4863 February, Ventricular arrhythmia I49.9 [facility] [id number] [place] [address] 11197- 9890 February, [facility] [address] 00715- 9515 Dec, Thoracic neuritis M54.14 ; Lumbar neuritis M54.16 and Epileptic seizure, generalized G40.309 [address] 80375- 7358 Sep, Epileptic seizure, generalized G40.309 and Lumbar neuritis M54.16 [place] [id number] [place] [address] 21881- 3779 Aug, Thoracic neuritis M54.14 and Lumbar neuritis M54.16 [place] [id number] [place] [address] 14674- 9286 Jun, [place] [address] 97720- 5810 Jun, Abscess of leg, left L02.416 [place] [id number] [place] [address] 30012- 8880 May, Lumbar neuritis M54.16 ; Thoracic neuritis M54.14 ; Intracranial injury, without loss of consciousness, subsequent encounter S06.9X0D and Cardiomyopathy I42.9 [facility] [id number] [place] [address] 13373- 6607 Apr, Lumbar neuritis M54.16 [place] [id number] [place] [address] 30357- 2210 Apr, [facility] [id number] [place] [address] 88146- 4961 Apr, Elevated liver enzymes R74.8 and Renal insufficiency N28.9 [facility] [id number] [place] [address] 95879- 6614 Apr, Lumbar neuritis M54.16 ; Thoracic neuritis M54.14 ; Hypertension, benign I10 ; Cardiomyopathy I42.9 and Epileptic seizure, generalized G40.309 [place] [id number] [place] [address] 78032- 7343 Mar, [facility] [address] 62648- 9067 February, [place] [id number] [place] [address] 60934- 3575 February, Lumbar neuritis M54.16 ; Thoracic neuritis M54.14 ; Hypertension, benign I10 ; Cardiomyopathy I42.9 and Epileptic seizure, generalized G40.309 [place] [id number] [place] [address] 98030- 6450 Dec, [facility] [address] 98547- 2468 Sep, Epigastric mass R19.06 [place] [address] 24960- 8302 Sep, Epigastric mass R19.06 [place] [id number] [place] [address] 37574- 9869 Sep, [facility] [id number] [place] [address] 59515- 6692 Sep, Epigastric mass R19.06 [place] [id number] [place] [address] 71412- 7933 Sep, Epigastric mass R19.06 and Lung mass R91.8 [facility] [id number] [place] [address] 80491 -1651 Jul, Shortness of breath R06.02 ; Dysuria R30.0 and Acute bronchitis, unspecified organism J20.9 [facility] [id number] [place] [address] 26526- 3983 Jul, [facility] [address] 44440- 5444 Jun, Seizures R56.9 ; Thoracic neuritis M54.14 ; Lumbar neuritis M54.16 and GERD (gastroesophageal reflux disease) K21.9 [facility] [address] 12126 -3221 Jan, [facility] [address] 79704- 1608 Sep, [place] [address] 66656- 7288 Sep, Intracranial injury, without loss of consciousness, subsequent encounter S06.9X0D ; Cardiomyopathy I42.9 ; GERD (gastroesophageal reflux disease) K21.9 ; Hypertension, benign I10 ; Thoracic neuritis M54.14 and Lumbar neuritis M54.16 [facility] [address] 70951- 6518 Mar, [place] [address] 14250- 2073 Mar, Coronary atherosclerosis of unspecified type of vessel, [place] or graft 414.00 ; Unspecified essential hypertension 401.9 ; Thoracic or lumbosacral neuritis or radiculitis, unspecified 724.4 and Other convulsions 780.39 [place] [id number] [place] [address] 31364- 7892 Jan, [facility] [address] 27396- 8654 Jan, [facility] [address] 72990- 1106 Nov, [facility] [address] 93930- 1212 Nov, [facility] [address] 79250- 8127 Nov, 2014 [facility] [place] [facility] [address] [id number] [place] [address]- 8444 Nov, 2014 [facility] [place] [facility] [address] [facility] [id number] [place] 9646 Nov, 2014 [facility] [place] [facility] [address] [facility] [id number] [place] [address]- 8586 Nov, 2014 [facility] [place] [facility] [address] [facility] [id number] [place] [address]- 8137 Nov, 2014 [facility] [place] [facility] [address] [facility] [id number] [place] [address]- 8834 Nov, 2014 [facility] [place] [facility] [id number] [address]- 4898 Nov, 2014 [facility] [place] [facility] [id number] [address]- 4830 Nov, 2014 [facility] [place] [facility] [address] [facility] [id number] [place] [address]- 9579 Sep, [facility] [place] [facility] [id number] [address]- 2668 Sep, [facility] [place] [facility] [address] [id number] [address]- 2519 Aug, [facility] [place] [facility] [address] [facility] [id number] [place] [address]- 9126 Aug, [facility] [place] [facility] [address] [facility] [id number] [address]- 1079 Aug, [facility] [place] [facility] [address] [facility] [id number] [place] [address]- 3297 Aug, [facility] [place] [facility] [address] [facility] [id number] [place] [address]- 5817 Jul, [facility] [place] [facility] [address] [facility] [id number] [place] [address]- 9115 Jul, [facility] [place] [facility] [address] [id number] [place] [address]- 3472 Jul, [facility] [place] [facility] [address] [id number] [place] [address]- 8428 Jul, [facility] [place] [facility] [address] [id number] [place] [address]- 2246 Jun, [facility] [place] [facility] [address] [id number] [place] [address]- 7218 Jun, [facility] [place] [facility] [address] [id number] [place] [address]- 1415 Jun, [facility] [place] [facility] [address] [id number] [place] [address]- 5144 May, [facility] [place] [facility] [address] [id number] [place] [address]- 2114 May, [facility] [place] [facility] [address] [id number] [place] [address]- 1367 May, [facility] [place] [facility] [address] [id number] [place] [address]- 1903 May, [facility] [place] [facility] [address] [id number] [place] [address]- 7495 May, [facility] [place] [facility] [address] [id number] [place] [address]- 1669 May, [facility] [place] [facility] [address] [id number] [address]- 8590 May, [facility] [place] [facility] [address] [id number] [place] [address]- 2649 May, [facility] [place] [facility] [address] [id number] [place] [address]- 7882 February, [facility] [place] [facility] [address] [id number] [place] [address]- 6517 February, [facility] [place] [facility] [address] [id number] [address]- 4204 Jan, [facility] [place] [facility] [address] [id number] [place] 6349 Jan, [facility] [place] [facility] [address] [id number] [place] [address]- 6236 Jan, [facility] [place] [facility] [address] [facility] [id number] [place] [address]- 9394 Jan, [facility] [place] [facility] [address] [id number] [place] [address]- 8775 Nov, [facility] [place] [facility] [address] [id number] [place] [address]- 1828 Nov, [facility] [place] [facility] [address] [facility] [id number] [place] [address]- 5406 Nov, [facility] [place] [facility] [address] [facility] [id number] [place] [address]- 6018 Nov, [facility] [place] [facility] [address] [facility] [id number] [place] [address]- 4680 Sep, [facility] [place] [facility] [address] [facility] [id number] [place] [address]- 7712 Sep, [facility] [place] [facility] [address] [facility] [id number] [place] [address]- 8084 Sep, [facility] [place] [facility] [address] [facility] [id number] [place] [address]- 7321 07 Sep, 2013 [facility] [place] [facility] [address] [facility] [id number] [address]- 8692 Sep, [facility] [place] [facility] [address] [facility] [id number] [place] [address]- 0813 Sep, [facility] [place] [facility] [address] [facility] [id number] [place] 1582 Jul, [facility] [place] [facility] [address] [facility] [id number] [place] 2260 Jul, [facility] [place] [facility] [address] [id number] [place] [address]- 8576 Jun, [facility] [address] [id number] [place] [address]- 2654 Jun, [facility] [address] [id number] [place] [address]- 2886 Jun, [facility] [address] [id number] [place] [address]- 4292 May, [facility] IP [address] [facility] [address] [id number] May [facility] [address] [id number] [place] [address]- 3085 May, [facility] [address] [id number] [place] [address]- 6846 May, [facility] [address] [id number] [place] [address]- 2489 May, [facility] [address] [id number] [place] [address]- 8175 May, [facility] [address] [id number] [place] [address]- 2380 May, [facility] [address] [id number] [place] [address]- 0352 Apr, [facility] [address] [id number] [place] [address]- 2301 Apr, [facility] [address] [id number] [place] [address]- 2546 Apr, [facility] [address] [id number] [place] [address]- 8506 Apr, [facility] [address] [id number] [place] [address]- 2546 Mar, [facility] [address] [id number] [place] [address]- 5749 February, [facility] [address] [id number] [place] [address]- 1078 Jan, [facility] [address] [id number] [place] [address]- 4840 Dec, [facility] [address] [id number] [place] [address]- 2678 Dec, [facility] [place] [facility] [address] [id number] [place] [address]- 6882 Dec, [facility] [address] [id number] [place] [address]- 7950 Nov, [facility] [address] [id number] [place] [address]- 5719 Nov, [facility] [address] [id number] [place] [address]- 9069 Nov, [facility] [address] [id number] [place] [address]- 5196 Oct, [facility] [address] [id number] [place] [address]- 9050 Oct, [facility] [address] [facility] [id number] [place] [address]- 3883 Sep, [facility] [address] [id number] [address]- 3916 Sep, [facility] [place] [facility] [address] [id number] [place] [address]- 7448 Sep, [facility] [place] [facility] [address] [id number] [place] [address]- 8343 Sep, [facility] [place] [facility] [address] [id number] [place] [address]- 6712 Sep, [facility] [place] [facility] [address] [facility] [id number] [place] [address]- 3103 Sep, [facility] [place] [facility] [address] [id number] [place] [address]- 7765 Aug, [facility] [place] [facility] [address] [id number] [place] [address]- 6025 Aug, [facility] [place] [facility] [address] [id number] [place] [address]- 9484 Aug, [facility] [place] [facility] [address] [id number] [place] [address]- 6541 Aug, [facility] [place] [facility] [address] [id number] [place] [address]- 0642 Aug, [facility] [place] [facility] [address] [id number] [place] [address]- 8965 Aug, [facility] [place] [facility] [address] [id number] [place] [address]- 5951 Aug, [facility] [place] [facility] [address] [id number] [place] [address]- 5779 Aug, [facility] [place] [facility] [address] [id number] [place] [address]- 8589 Aug, [facility] [place] [facility] [address] [id number] [place] [address]- 8062 Aug, [facility] [place] [facility] [address] [facility] [id number] [place] [address]- 3422 Jul, [facility] [place] [facility] [address] [id number] [place] [address]- 6630 Jul, [facility] [place] [facility] [address] [id number] [place] [address]- 2339 Jul, [facility] [place] [facility] [address] [id number] [place] [address]- 4023 Jul, [facility] [place] [facility] [address] [id number] [place] [address]- 0740 Jul, [facility] [place] [facility] [address] [id number] [place] [address]- 5252 Jul, [facility] [place] [facility] [address] [id number] [place] [address]- 3470 Jul, [facility] [place] [facility] [address] [id number] [place] [address]- 1986 Jul, [facility] [place] [facility] [address] [id number] [place] [address]- 2669 18 Jul, 2012 [facility] [place] [facility] [address] [id number] [place] [address]- 5223 Jul, [facility] [place] [facility] [address] [id number] [place] [address]- 8898 Jul, [facility] [place] [facility] [address] [id number] [place] [address]- 0759 Jul, [facility] [place] [facility] [address] [id number] [place] [address]- 6798 Jul, [facility] [place] [facility] [address] [id number] [place] [address]- 8566 Jul, [facility] [place] [facility] [address] [id number] [place] [address]- 6141 Jul, [facility] [place] [facility] [address] [id number] [place] [address]- 5916 28 Jun, 2012 [facility] [place] [facility] [address] [id number] [place] [address]- 3910 24 Jun, 2012 [facility] [place] [facility] [address] [id number] [place] [address]- 7584 19 Jun, 2012 [facility] [place] [facility] [address] [id number] [place] [address]- 9844 May, [facility] [place] [facility] [address] [id number] [place] [address]- 5066 May, [facility] [place] [facility] [address] [id number] [place] [address]- 4584 Mar, [facility] [place] [facility] [address] [id number] [place] [address]- 3326 Mar, [facility] [address] [id number] [place] [address]- 4614 February, [facility] [place] [facility] [address] [id number] [place] [address]- 1666 February, [facility] [place] [facility] [address] [id number] [place] [address]- 5226 Nov, [facility] [place] [facility] [address] [id number] [place] [address]- 6510 Oct, [facility] [place] [facility] [address] [id number] [place] [address]- 0542 Oct, [facility] [place] [facility] [address] [id number] [place] [address]- 2979 Oct, [facility] [place] [facility] [address] [id number] [place] [address]- 5461 Aug, [facility] [place] [facility] [address] [id number] [place] [address]- 3833 Jul, [facility] [place] [facility] [address] [id number] [place] [address]- 2562 Sep, [facility] [place] [facility] [address] [id number] [place] [address]- 3059 Aug, [facility] [place] [facility] [address] [id number] [place] [address]- 2521 Jul, [facility] [place] [facility] [address] [id number] [place] [address]- 4910 Apr, [facility] [place] [facility] [address] [id number] [place] [address]- 5950 February, [facility] [place] [facility] [address] [id number] [place] [address]- 9275 Sep, [facility] [place] [facility] [address] [id number] [place] [address]- 9722 Sep, [facility] [place] [facility] [address] [facility] [id number] [place] [address]- 4646 Sep, [facility] [address] [id number] [address]- 8925 Apr, [facility] [address]00565[address] [address]- 8945 Mar, [facility] [address] [id number] [address]- 2704 February, [facility] [address]00565[address] [address]- 4171 Jan, [facility] [id number] [place] [address] 11856- 5604 Jul, IMMUNIZATIONS No Known Immunizations SOCIAL HISTORY Never Assessed REASON FOR VISIT Medication question PLAN OF CARE VITAL SIGNS MEDICATIONS Unknown Medications RESULTS No Results PROCEDURES No Known procedures INSTRUCTIONS MEDICATIONS ADMINISTERED No Known Medications MEDICAL (GENERAL) HISTORY Type Description Date Medical History 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
--- OUTSIDE RECORDS SUMMARY | 2018-07-30 08:15 | XMS REPORT ---
Author Author TRACEE LANGE Organization [facility] Address [address] [place] [address] Care Team Providers Care Loom Tuner Name Role Phone TRACEE LANGE Unavailable PROBLEMS Type Condition ICD9-CM Code QQV45-HX Code Onset Dates Condition Status SNOMED Code Problem Thoracic neuritis M54.14 Active 68105959 Problem Intracranial injury, without loss of consciousness, subsequent encounter S06.9X0D Active 099072311 Problem Ventricular arrhythmia I49.9 Active 02240676 Problem Epileptic seizure, generalized G40.309 Active 50214780 Problem Hypertension, benign I10 Active 58978470 Problem Lumbar neuritis M54.16 Active 572138020 Problem GERD (gastroesophageal reflux disease) K21.9 Active 436795590 Problem Cardiomyopathy I42.9 Active 41874537 ALLERGIES No Information ENCOUNTERS Encounter Location Date Diagnosis [facility] [id number] [place] [address] 93649- 2530 Jul, [facility] [id number] [place] [address] 52102- 1115 May, [facility] [id number] [place] [address] 59221- 8421 May, [facility] [id number] [place] [address] 23041- 9896 May, [facility] [id number] [place] [address] 59274- 8149 May, Seizures R56.9 [facility] [id number] [place] [address] 31063- 1856 May, [facility] [id number] [place] [address] 77446- 3015 May, Delirium R41.0 [facility] [id number] [place] [address] 18347- 1528 Apr, [facility] [id number] [place] [address] 74236- 1460 February, Ventricular arrhythmia I49.9 [facility] [id number] [place] [address] 93564- 3207 February, [facility] [address] 32428- 4207 Dec, Thoracic neuritis M54.14 ; Lumbar neuritis M54.16 and Epileptic seizure, generalized G40.309 [place] [address] 45108- 7545 Sep, Epileptic seizure, generalized G40.309 and Lumbar neuritis M54.16 [place] [id number] [place] [address] 87367- 0596 Aug, Thoracic neuritis M54.14 and Lumbar neuritis M54.16 [place] [id number] [place] [address] 96700- 5485 Jun, [place] [address] 90818- 6299 Jun, Abscess of leg, left L02.416 [place] [id number] [place] [address] 07091- 9117 May, Lumbar neuritis M54.16 ; Thoracic neuritis M54.14 ; Intracranial injury, without loss of consciousness, subsequent encounter S06.9X0D and Cardiomyopathy I42.9 [facility] [id number] [place] [address] 29667- 5009 Apr, Lumbar neuritis M54.16 [place] [id number] [place] [address] 23270- 2308 Apr, [facility] [id number] [place] [address] 01555- 0121 Apr, Elevated liver enzymes R74.8 and Renal insufficiency N28.9 [facility] [id number] [place] [address] 50043- 9570 Apr, Lumbar neuritis M54.16 ; Thoracic neuritis M54.14 ; Hypertension, benign I10 ; Cardiomyopathy I42.9 and Epileptic seizure, generalized G40.309 [place] [id number] [place] [address] 59142- 9619 Mar, [facility] [address] 19079- 5460 February, [place] [id number] [place] [address] 93525- 3917 February, Lumbar neuritis M54.16 ; Thoracic neuritis M54.14 ; Hypertension, benign I10 ; Cardiomyopathy I42.9 and Epileptic seizure, generalized G40.309 [place] [id number] [place] [address] 20381- 4892 Dec, [facility] [address] 55751- 4407 Sep, Epigastric mass R19.06 [place] [address] 43508- 7094 Sep, Epigastric mass R19.06 [place] [id number] [place] [address] 10048- 2267 Sep, [facility] [id number] [place] [address] 85271- 2441 Sep, Epigastric mass R19.06 [place] [id number] [place] [address] 73734- 5690 Sep, Epigastric mass R19.06 and Lung mass R91.8 [facility] [id number] [place] [address] 88172 -8266 Jul, Shortness of breath R06.02 ; Dysuria R30.0 and Acute bronchitis, unspecified organism J20.9 [facility] [id number] [place] [address] 46619- 1106 Jul, [facility] [address] 14563- 1042 Jun, Seizures R56.9 ; Thoracic neuritis M54.14 ; Lumbar neuritis M54.16 and GERD (gastroesophageal reflux disease) K21.9 [facility] [address] 95339 -7008 Jan, [facility] [address] 94754- 3513 Sep, [place] [address] 85307- 0795 Sep, Intracranial injury, without loss of consciousness, subsequent encounter S06.9X0D ; Cardiomyopathy I42.9 ; GERD (gastroesophageal reflux disease) K21.9 ; Hypertension, benign I10 ; Thoracic neuritis M54.14 and Lumbar neuritis M54.16 [facility] [address] 67021- 0205 Mar, [place] [address] 23714- 5831 Mar, Coronary atherosclerosis of unspecified type of vessel, flandreau or graft 414.00 ; Unspecified essential hypertension 401.9 ; Thoracic or lumbosacral neuritis or radiculitis, unspecified 724.4 and Other convulsions 780.39 [place] [id number] [place] [address] 37656- 1938 Jan, [facility] [address] 90939- 0190 Jan, [facility] [address] 06353- 9330 Nov, [facility] [address] 74706- 8850 Nov, [facility] [address] 66497- 5397 Nov, 2014 [facility] [place] [facility] [address] [id number] [place] [address]- 8996 Nov, 2014 [facility] [place] [facility] [address] [facility] [id number] [place] 5486 Nov, 2014 [facility] [place] [facility] [address] [facility] [id number] [place] [address]- 0896 Nov, 2014 [facility] [place] [facility] [address] [facility] [id number] [place] [address]- 7784 Nov, 2014 [facility] [place] [facility] [address] [facility] [id number] [place] [address]- 8293 Nov, 2014 [facility] [place] [facility] [id number] [place] [address]- 1448 Nov, 2014 [facility] [place] [facility] [address] [id number] [place] [address]- 4083 Nov, 2014 [facility] [place] [facility] [address] [facility] [id number] [place] [address]- 1951 Sep, [facility] [place] [facility] [id number] [place] [address]- 0585 Sep, [facility] [place] [facility] [id number] [place] [address]- 2846 Aug, [facility] [place] [facility] [address] [facility] [id number] [place] [address]- 8712 Aug, [facility] [place] [facility] [address] [facility] [id number] [address]- 3388 Aug, [facility] [place] [facility] [address] [facility] [id number] [place] [address]- 4117 Aug, [facility] [place] [facility] [address] [facility] [id number] [place] [address]- 6441 Jul, [facility] [place] [facility] [address] [facility] [id number] [place] [address]- 2825 Jul, [facility] [place] [facility] [address] [id number] [place] [address]- 1694 Jul, [facility] [place] [facility] [address] [id number] [place] [address]- 3713 Jul, [facility] [place] [facility] [address] [id number] [place] [address]- 8802 Jun, [facility] [place] [facility] [address] [id number] [place] [address]- 4369 Jun, [facility] [place] [facility] [address] [id number] [place] [address]- 9239 Jun, [facility] [place] [facility] [address] [id number] [place] [address]- 4510 May, [facility] [place] [facility] [address] [id number] [place] [address]- 5974 May, [facility] [place] [facility] [address] [id number] [place] [address]- 4278 May, [facility] [place] [facility] [address] [id number] [place] [address]- 3187 May, [facility] [place] [facility] [address] [id number] [place] [address]- 3334 May, [facility] [place] [facility] [address] [id number] [place] [address]- 0841 May, [facility] [place] [facility] [address] [id number], [place] [address]- 0284 May, [facility] [place] [facility] [address] [id number] [place] [address]- 9560 May, [facility] [place] [facility] [address] [id number] [place] [address]- 8994 February, [facility] [place] [facility] [address] [id number] [place] [address]- 1010 February, [facility] [place] [facility] [address] [id number], [place] [address]- 3143 Jan, [facility] [place] [facility] [address] [id number] [place] 8886 Jan, [facility] [place] [facility] [address] [id number] [place] [address]- 2017 Jan, [facility] [place] [facility] [address] [facility] [id number] [place] [address]- 6663 Jan, [facility] [place] [facility] [address] [id number] [place] [address]- 9395 Nov, [facility] [place] [facility] [address] [id number] [place] [address]- 5293 Nov, [facility] [place] [facility] [address] [facility] [id number] [place] [address]- 7830 Nov, [facility] [place] [facility] [address] [facility] [id number] [place] [address]- 8398 Nov, [facility] [place] [facility] [address] [facility] [id number] [place] [address]- 0390 Sep, [facility] [place] [facility] [address] [facility] [id number] [place] [address]- 0822 Sep, [facility] [place] [facility] [address] [facility] [id number] [place] [address]- 6949 Sep, [facility] [place] [facility] [address] [facility] [id number] [place] [address]- 4527 07 Sep, 2013 [facility] [place] [facility] [address] [facility] [id number], [place] [address]- 1671 Sep, [facility] [place] [facility] [address] [facility] [id number] [place] [address]- 4925 Sep, [facility] [place] [facility] [address] [facility] [id number] [place] 9095 Jul, [facility] [place] [facility] [address] [facility] [id number] [place]- 7271 Jul, [facility] [place] [facility] [address] [id number] [place] [address]- 8350 Jun, [facility] [address] [id number] [place] [address]- 9727 Jun, [facility] [address] [id number] [place] [address]- 6716 Jun, [facility] [address] [id number] [place] [address]- 6899 May, [facility] [id number] May [facility] [address] [id number] [place] [address]- 8034 May, [facility] [address] [id number] [place] [address]- 4766 May, [facility] [address] [id number] [place] [address]- 9885 May, [facility] [address] [id number] [place] [address]- 7815 May, [facility] [address] [id number] [place] [address]- 5414 May, [facility] [address] [id number] [place] [address]- 0723 Apr, [facility] [address] [id number] [place] [address]- 1179 Apr, [facility] [address] [id number] [place] [address]- 2546 Apr, [facility] [address] [id number] [place] [address]- 8436 Apr, [facility] [address] [id number] [place] [address]- 2546 Mar, [facility] [address] [id number] [place] [address]- 1523 February, [facility] [address] [id number] [place] [address]- 9037 Jan, [facility] [address] [id number] [place] [address]- 3290 Dec, [facility] [address] [id number] [place] [address]- 0441 Dec, [facility] [place] [facility] [address] [id number] [place] [address]- 8591 Dec, [facility] [address] [id number] [place] [address]- 5072 Nov, [facility] [address] [id number] [place] [address]- 3950 Nov, [facility] [address] [id number] [place] [address]- 1225 Nov, [facility] [address] [id number] [place] [address]- 1374 Oct, [facility] [address] [id number] [place] [address]- 8005 Oct, [facility] [address] [facility] [id number] [place] [address]- 5165 Sep, [facility] [address] [id number], [place] [address]- 6444 Sep, [facility] [place] [facility] [address] [id number], [place] [address]- 1615 Sep, [facility] [place] [facility] [address] [id number] [place] [address]- 6313 Sep, [facility] [place] [facility] [address] [id number] [place] [address]- 3159 Sep, [facility] [place] [facility] [address] [facility] [id number] [place] [address]- 1240 Sep, [facility] [place] [facility] [address] [id number] [place] [address]- 2855 Aug, [facility] [place] [facility] [address] [id number] [place] [address]- 4226 Aug, [facility] [place] [facility] [address] [id number] [place] [address]- 6396 Aug, [facility] [place] [facility] [address] [id number] [place] [address]- 1585 Aug, [facility] [place] [facility] [address] [id number] [place] [address]- 1683 Aug, [facility] [place] [facility] [address] [id number] [place] [address]- 6332 Aug, [facility] [place] [facility] [address] [id number] [place] [address]- 8533 Aug, [facility] [place] [facility] [address] [id number] [place] [address]- 7011 Aug, [facility] [place] [facility] [address] [id number] [place] [address]- 6733 Aug, [facility] [place] [facility] [address] [id number] [place] [address]- 7702 Aug, [facility] [place] [facility] [address] [facility] [id number] [place] [address]- 1161 Jul, [facility] [place] [facility] [address] [id number] [place] [address]- 9264 Jul, [facility] [place] [facility] [address] [id number], [place] [address]- 9398 Jul, [facility] [place] [facility] [address] [id number] [place] [address]- 6868 Jul, [facility] [place] [facility] [address] [id number] [place] [address]- 8336 Jul, [facility] [place] [facility] [address] [id number], [place] [address]- 7435 Jul, [facility] [place] [facility] [address] [id number] [place] [address]- 5926 Jul, [facility] [place] [facility] [address] [id number] [place] [address]- 0563 Jul, [facility] [place] [facility] [address] [id number] [place] [address]- 2783 18 Jul, 2012 [facility] [place] [facility] [address] [id number] [place] [address]- 1418 Jul, [facility] [place] [facility] [address] [id number] [place] [address]- 2315 Jul, [facility] [place] [facility] [address] [id number] [place] [address]- 7626 Jul, [facility] [place] [facility] [address] [id number] [place] [address]- 5959 Jul, [facility] [place] [facility] [address] [id number] [place] [address]- 6948 Jul, [facility] [place] [facility] [address] [id number] [place] [address]- 6778 Jul, [facility] [place] [facility] [address] [id number] [place] [address]- 3926 28 Jun, 2012 [facility] [place] [facility] [address] [id number] [place] [address]- 9818 24 Jun, 2012 [facility] [place] [facility] [address] [id number] [place] [address]- 9455 19 Jun, 2012 [facility] [place] [facility] [address] [id number] [place] [address]- 2541 May, [facility] [place] [facility] [address] [id number] [place] [address]- 1208 May, [facility] [place] [facility] [address] [id number] [place] [address]- 6773 Mar, [facility] [place] [facility] [address] [id number] [place] [address]- 7876 Mar, [facility] [address] [id number] [place] [address]- 3038 February, [facility] [place] [facility] [address] [id number] [place] [address]- 1336 February, [facility] [place] [facility] [address] [id number] [place] [address]- 2731 Nov, [facility] [place] [facility] [address] [id number] [place] [address]- 6916 Oct, [facility] [place] [facility] [address] [id number] [place] [address]- 7759 Oct, [facility] [place] [facility] [address] [id number] [place] [address]- 4213 Oct, [facility] [place] [facility] [address] [id number] [place] [address]- 6570 Aug, [facility] [place] [facility] [address] [id number] [place] [address]- 0480 Jul, [facility] [place] [facility] [address] [id number] [place] [address]- 4625 Sep, [facility] [place] [facility] [address] [id number] [place] [address]- 3977 Aug, [facility] [place] [facility] [address] [id number], [place] [address]- 5266 Jul, [facility] [place] [facility] [address] [id number] [place] [address]- 3973 Apr, [facility] [place] [facility] [address] [id number] [place] [address]- 3355 February, [facility] [place] [facility] [address] [id number] [place] [address]- 5185 Sep, [facility] [place] [facility] [address] [id number] [place] [address]- 6230 Sep, [facility] [place] [facility] [address] [facility] [id number] [place] [address] Sep, [facility] [address] [facility] [id number] [address] Apr, [facility] [id number] [address] Mar, [facility] [address] [id number] [address] February, [facility] [address] [id number] [address] Jan, [facility] [id number] [place] [id number] Jul, IMMUNIZATIONS No Known Immunizations SOCIAL HISTORY [...] Hernia-repaired Medical History Hyperactive bladder Medical History [id number] 03/2011-6.1 % Medical History Epilepsy and recurrent [...] Hospitalization History Defibulator placement 02/2018 Hospitalization History [facility] 04/2018-05/2018
--- OUTSIDE RECORDS SUMMARY | 2018-07-30 08:15 | XMS REPORT ---
Author Author TRACEE LANGE Organization [facility] Address [address] [place] [address] Care Team Providers Care Manager Intensive Care Name Role Phone TRACEE LANGE Unavailable PROBLEMS Type Condition ICD9-CM Code ZAB91-MA Code Onset Dates Condition Status SNOMED Code Problem Thoracic neuritis M54.14 Active 76693173 Problem Intracranial injury, without loss of consciousness, subsequent encounter S06.9X0D Active 901195430 Problem Ventricular arrhythmia I49.9 Active 91260604 Problem Epileptic seizure, generalized G40.309 Active 16993211 Problem Hypertension, benign I10 Active 27870040 Problem Lumbar neuritis M54.16 Active 062889601 Problem GERD (gastroesophageal reflux disease) K21.9 Active 924151348 Problem Cardiomyopathy I42.9 Active 80862114 ALLERGIES No Known Allergies ENCOUNTERS Encounter Location Date Diagnosis [facility] [id number] [place] [address] 21730- 7631 Jun, [facility] [id number] [place] [address] 49262- 1097 May, [facility] [id number] [place] [address] 98333- 4548 May, [facility] [id number] [place] [address] 02715- 5398 May, [facility] [id number] [place] [address] 92543- 8642 May, Seizures R56.9 [facility] [id number] [place] [address] 99738- 6664 May, [facility] [id number] [place] [address] 96780- 4288 May, Delirium R41.0 [facility] [id number] [place] [address] 21844- 3639 Apr, [facility] [id number] [place] [address] 20334- 9763 February, Ventricular arrhythmia I49.9 [facility] [id number] [place] [address] 67039- 4856 February, [facility] [address] 64079- 8401 Dec, Thoracic neuritis M54.14 ; Lumbar neuritis M54.16 and Epileptic seizure, generalized G40.309 [place] [address] 74342- 0927 Sep, Epileptic seizure, generalized G40.309 and Lumbar neuritis M54.16 [place] [id number] [place] [address] 89900- 3839 Aug, Thoracic neuritis M54.14 and Lumbar neuritis M54.16 [place] [id number] [place] [address] 18174- 2871 Jun, [place] [address] 11247- 2784 Jun, Abscess of leg, left L02.416 [place] [id number] [place] [address] 15108- 3459 May, Lumbar neuritis M54.16 ; Thoracic neuritis M54.14 ; Intracranial injury, without loss of consciousness, subsequent encounter S06.9X0D and Cardiomyopathy I42.9 [facility] [id number] [place] [address] 76437- 8081 Apr, Lumbar neuritis M54.16 [facility] [id number] [place] [address] 10978- 5755 Apr, [facility] [id number] [place] [address] 69364- 9711 Apr, Elevated liver enzymes R74.8 and Renal insufficiency N28.9 [facility] [id number] [place] [address] 98320- 0531 Apr, Lumbar neuritis M54.16 ; Thoracic neuritis M54.14 ; Hypertension, benign I10 ; Cardiomyopathy I42.9 and Epileptic seizure, generalized G40.309 [place] [id number] [place] [address] 17318- 0095 Mar, [facility] [address] 91202- 7177 February, [place] [id number] [place] [address] 11788- 5620 February, Lumbar neuritis M54.16 ; Thoracic neuritis M54.14 ; Hypertension, benign I10 ; Cardiomyopathy I42.9 and Epileptic seizure, generalized G40.309 [place] [id number] [place] [address] 68951- 0113 Dec, [facility] [address] 26631- 4899 Sep, Epigastric mass R19.06 [place] [address] 04548- 8450 Sep, Epigastric mass R19.06 [place] [id number] [place] [address] 60444- 9531 Sep, [facility] [id number] [place] [address] 48401- 5863 Sep, Epigastric mass R19.06 [place] [id number] [place] [address] 47175- 4871 Sep, Epigastric mass R19.06 and Lung mass R91.8 [facility] [id number] [place] [address] 86502 -7676 Jul, Shortness of breath R06.02 ; Dysuria R30.0 and Acute bronchitis, unspecified organism J20.9 [facility] [id number] [place] [address] 87241- 4361 Jul, [facility] [address] 74680- 0799 Jun, Seizures R56.9 ; Thoracic neuritis M54.14 ; Lumbar neuritis M54.16 and GERD (gastroesophageal reflux disease) K21.9 [facility] [address] 81934 -3042 Jan, [facility] [address] 94354- 0823 Sep, [place] [address] 16382- 3271 Sep, Intracranial injury, without loss of consciousness, subsequent encounter S06.9X0D ; Cardiomyopathy I42.9 ; GERD (gastroesophageal reflux disease) K21.9 ; Hypertension, benign I10 ; Thoracic neuritis M54.14 and Lumbar neuritis M54.16 [facility] [address] 44601- 9911 Mar, [place] [address] 31274- 5793 Mar, Coronary atherosclerosis of unspecified type of vessel, [place] or graft 414.00 ; Unspecified essential hypertension 401.9 ; Thoracic or lumbosacral neuritis or radiculitis, unspecified 724.4 and Other convulsions 780.39 [place] [id number] [place] [address] 35727- 3788 Jan, [facility] [address] 25620- 5525 Jan, [facility] [address] 49353- 5243 Nov, [facility] [id number] [place] [address] 39255- 7396 Nov, [facility] [address] [place] [address]- 3121 Nov, 2014 [facility] [place] [facility] [address] [id number] [place] [address]- 2846 Nov, 2014 [facility] [place] [facility] [address] [id number] [place] 4146 Nov, 2014 [facility] [place] [facility] [address] [id number] [place] [address]- 9166 Nov, 2014 [facility] [place] [facility] [address] [id number] [place] [address]- 1926 Nov, 2014 [facility] [place] [facility] [address] [id number] [place] [address]- 2056 Nov, 2014 [facility] [place] [facility] [address] [facility] [id number] [place] [address]- 8009 Nov, 2014 [facility] [place] [facility] [id number] [place] [address]- 9203 Nov, 2014 [facility] [place] [facility] [address] [facility] [id number] [place] [address]- 2679 Sep, [facility] [place] [facility] [id number] [place] [address]- 1549 Sep, [facility] [place] [facility] [id number] [place] [address]- 3898 Aug, [facility] [place] [facility] [address] [facility] [id number] [place] [address]- 1637 Aug, [facility] [place] [facility] [address] [id number], [place] [address]- 1422 Aug, [facility] [place] [facility] [address] [facility] [id number] [place] [address]- 2564 Aug, [facility] [place] [facility] [address] [facility] [id number] [place] [address]- 8105 Jul, [facility] [place] [facility] [address] [facility] [id number] [place] [address]- 4421 Jul, [facility] [place] [facility] [address] [id number] [place] [address]- 8133 Jul, [facility] [place] [facility] [address] [id number] [place] [address]- 0854 Jul, [facility] [place] [facility] [address] [id number] [place] [address]- 1044 Jun, [facility] [place] [facility] [address] [id number] [place] [address]- 4165 Jun, [facility] [place] [facility] [address] [id number] [place] [address]- 2683 Jun, [facility] [place] [facility] [address] [id number] [place] [address]- 4253 May, [facility] [place] [facility] [address] [id number] [place] [address]- 9341 May, [facility] [place] [facility] [address] [id number] [place] [address]- 9663 May, [facility] [place] [facility] [address] [id number] [place] [address]- 1893 May, [facility] [place] [facility] [address] [id number] [place] [address]- 1568 May, [facility] [place] [facility] [address] [id number] [place] [address]- 7666 May, [facility] [place] [facility] [address] [id number] [place] [address]- 2544 May, [facility] [place] [facility] [address] [id number] [place] [address]- 1442 May, [facility] [place] [facility] [address] [id number] [place] [address]- 9073 February, [facility] [place] [facility] [address] [id number] [place] [address]- 3659 February, [facility] [place] [facility] [address] [id number] [place] [address]- 3149 Jan, [facility] [place] [facility] [address] [id number] [place] 7638 Jan, [facility] [place] [facility] [address] [id number] [place] 5208 Jan, [facility] [place] [facility] [address] [id number] [place] [address]- 6366 Jan, [facility] [place] [facility] [address] [id number] [place] [address]- 8785 Nov, [facility] [place] [facility] [address] [id number] [place] [address]- 8606 Nov, [facility] [place] [facility] [address] [id number] [place] [address]- 8305 Nov, [facility] [place] [facility] [address] [id number] [place] [address]- 1126 Nov, [facility] [place] [facility] [address] [id number] [place] [address]- 0998 Sep, [facility] [place] [facility] [address] [id number] [place] [address]- 2543 Sep, [facility] [place] [facility] [address] [facility] [id number] [place] [address]- 5905 Sep, [facility] [place] [facility] [address] [id number] [place] [address]- 6196 07 Sep, 2013 [facility] [place] [facility] [address] [id number], [place] [address]- 2716 06 Sep, 2013 [facility] [place] [facility] [address] [id number] [place] [address]- 2638 Sep, [facility] [place] [facility] [address] [id number] [place] 6006 Jul, [facility] [place] [facility] [address] [id number] [place] 7973 Jul, [facility] [place] [facility] [address] [id number] [place] [address]- 2225 Jun, [facility] [address] [id number] [place] [address]- 2403 Jun, [facility] [address] [id number] [place] [address]- 9326 Jun, [facility] [address] [id number] [place] [address]- 8562 May, [facility] [address] [facility] [id number] May [facility] [address] [id number] [place] [address]- 5164 May, [facility] [address] [id number] [place] [address]- 9506 May, [facility] [address] [id number] [place] [address]- 9856 May, [facility] [address] [id number] [place] [address]- 9265 May, [facility] [address] [id number] [place] [address]- 3809 May, [facility] [address] [id number] [place] [address]- 9397 Apr, [facility] [address] [id number] [place] [address]- 2545 Apr, [facility] [address] [id number] [place] [address]- 1566 Apr, [facility] [address] [id number] [place] [address]- 2546 Apr, [facility] [address] [id number] [place] [address]- 2546 Mar, [facility] [address] [id number] [place] [address]- 7939 February, [facility] [address] [id number] [place] [address]- 5322 Jan, [facility] [place] [facility] [address] [id number] [place] [address]- 6523 Dec, [facility] [place] [facility] [address] [id number] [place] [address]- 7957 Dec, [facility] [place] [facility] [address] [id number] [place] [address]- 1103 Dec, [facility] [address] [id number] [place] [address]- 6036 Nov, [facility] [place] [facility] [address] [id number] [place] [address]- 5297 Nov, [facility] [place] [facility] [address] [id number] [place] [address]- 6414 Nov, [facility] [place] [facility] [address] [id number] [place] [address]- 0150 Oct, [facility] [address] [id number] [place] [address]- 9232 Oct, [facility] [address] [id number] [place] [address]- 4781 Sep, [facility] [place] [facility] [address] [id number] [place] [address]- 6669 Sep, [facility] [place] [facility] [address] [id number], [place] [address]- 4063 Sep, [facility] [place] [facility] [address] [id number] [place] [address]- 6162 Sep, [facility] [place] [facility] [address] [id number] [place] [address]- 1657 Sep, [facility] [place] [facility] [address] [id number] [place] [address]- 8043 Sep, [facility] [place] [facility] [address] [id number] [place] [address]- 1364 Aug, [facility] [place] [facility] [address] [id number] [place] [address]- 9700 Aug, [facility] [place] [facility] [address] [id number] [place] [address]- 9681 Aug, [facility] [place] [facility] [address] [id number] [place] [address]- 3165 Aug, [facility] [place] [facility] [address] [id number] [place] [address]- 2223 Aug, [facility] [place] [facility] [address] [id number] [place] [address]- 9465 Aug, [facility] [place] [facility] [address] [id number] [place] [address]- 9611 Aug, [facility] [place] [facility] [address] [id number] [place] [address]- 5711 Aug, [facility] [place] [facility] [address] [id number] [place] [address]- 5479 Aug, [facility] [place] [facility] [address] [id number] [place] [address]- 9588 Aug, [facility] [place] [facility] [address] [facility] [id number] [place] [address]- 0467 Jul, [facility] [place] [facility] [address] [id number] [place] [address]- 5873 Jul, [facility] [place] [facility] [address] [id number], [place] [address]- 0974 Jul, [facility] [place] [facility] [address] [id number] [place] [address]- 5365 Jul, [facility] [place] [facility] [address] [facility] [id number] [place] [address]- 7080 Jul, [facility] [place] [facility] [address] [id number] [place] [address]- 9253 Jul, [facility] [place] [facility] [address] [id number] [place] [address]- 4726 Jul, [facility] [place] [facility] [address] [id number] [place] [address]- 6581 Jul, [facility] [place] [facility] [address] [id number] [place] [address]- 1622 Jul, [facility] [place] [facility] [address] [id number] [place] [address]- 1615 Jul, [facility] [place] [facility] [address] [id number] [place] [address]- 3273 Jul, [facility] [place] [facility] [address] [id number] [place] [address]- 0841 Jul, [facility] [place] [facility] [address] [id number] [place] [address]- 4156 Jul, [facility] [place] [facility] [address] [id number] [place] [address]- 3890 Jul, [facility] [place] [facility] [address] [id number] [place] [address]- 0470 Jul, [facility] [place] [facility] [address] [id number] [place] [address]- 9555 Jun, [facility] [place] [facility] [address] [id number] [place] [address]- 8867 24 Jun, 2012 [facility] [place] [facility] [address] [id number] [place] [address]- 1542 19 Jun, 2012 [facility] [place] [facility] [address] [id number] [place] 6383 May, [facility] [place] [facility] [address] [id number] [place] [address]- 1175 May, [facility] [place] [facility] [address] [id number] [place] [address]- 7854 Mar, [facility] [place] [facility] [address] [id number] [place] [address]- 2546 Mar, [facility] [address] [id number] [place] [address]- 8325 February, [facility] [place] [facility] [address] [id number] [place] [address]- 1366 February, [facility] [place] [facility] [address] [id number] [place] [address]- 7244 Nov, [facility] [place] [facility] [address] [id number] [place] [address]- 1573 Oct, [facility] [place] [facility] [address] [id number] [place] [address]- 3103 Oct, [facility] [place] [facility] [address] [id number] [place] [address]- 1717 Oct, [facility] [place] [facility] [address] [id number] [place] [address]- 9563 Aug, [facility] [place] [facility] [address] [id number] [place] [address]- 4770 Jul, [facility] [place] [facility] [address] [id number] [place] [address]- 9590 Sep, [facility] [place] [facility] [address] [id number] [place] [address]- 7465 Aug, [facility] [place] [facility] [address] [id number], [place] [address]- 4921 Jul, [facility] [place] [facility] [address] [id number] [place] [address]- 6366 Apr, [facility] [place] [facility] [address] [id number] [place] [address]- 5343 February, [facility] [place] [facility] [address] [id number] [place] [address]- 1868 Sep, [facility] [place] [facility] [address] [id number] [place] [address]- 8828 Sep, [facility] [place] [facility] [address] [facility] [id number] [place] [address] [address]20 Sep, [facility] [address] [id number] [address]- 1813 Apr, [facility] [address] [id number] [address]- 1145 Mar, [facility] [address] [address]- 9564 February, [facility] [address] [id number] [address]- 7363 Jan, [place] [address], [place] [address]- 5599 Jul, IMMUNIZATIONS No Known Immunizations SOCIAL HISTORY Never Assessed REASON FOR VISIT Pain management (chronic) Pt recently spent almost 3 months in hospital was released 2 days ago, current caregiver feels pt is not doing well on her own at this time VANNESA Sewell PLAN OF CARE VITAL SIGNS Height 63 in 2018-05-14 Weight 196.8 lbs 2018-05-14 Temperature 97.9 degrees Fahrenheit 2018-05-14 Heart Rate 112 bpm 2018-05-14 Respiratory Rate 24 2018-05-14 BMI 34.86 kg/m2 2018-05-14 Blood pressure systolic 138 mmHg 2018-05-14 Blood pressure diastolic 88 mmHg 2018-05-14 MEDICATIONS Medication Instructions Dosage Frequency Start Date End Date Duration Status Haloperidol 5 MG Orally Once a day 1 tablet 24h Active Aspirin 650 mg 1 Tablet by Oral route 6 times per hour Nov, Not-Taking ProAir HFA 108 (90 Base) MCG/ACT Inhalation every 4 hrs 2 puffs as needed 4h 31 Jul, 2016 Not-Taking Amlodipine Besylate 10 MG Orally Once a day 1 tablet 24h Active Protonix 40 mg Orally Once a day 1 tablet 24h Sep, Not- Taking Coreg 25 MG Active Loratadine 10 MG Orally Once a day 1 tablet 24h Active Morphine Sulfate 15 MG Orally 2 times a day 1 tablet as needed 12h Dec, Not-Taking Lansoprazole 15 MG Orally Once a day 1 capsule 24h Active Zyprexa 5 MG Orally Once a day 1 tablet 24h Active Oxycodone HCl 5 MG Orally every 6 hrs 1 tablet as needed 6h Active Gabapentin 300 MG Orally Once a day 1 capsule 24h Active Flexeril 10 mg 1 tablet 12h 13 May, 2014 Not-Taking Melatonin 3 MG Orally at bedtime 3 tablet at bedtime as needed with food Not-Taking Phenobarbital 100 MG Orally Once a day 1 tablet as needed 24h Active Dulcolax 10 MG Rectal Once a day 1 suppository as needed 24h Active Oxcarbazepine 600 MG Orally Twice a day 1 tablet 12h Active Reglan 10 mg Orally 4 times a day 1 tablet 6h 11 Jun, 2017 Not- Taking Xarelto 20 MG Orally Once a day 1 tablet with food 24h Active Milk of Magnesia 400 MG/5ML Orally Four times a day 5 ml as needed 6h Active Hydrochlorothiazide 25 MG Orally Once a day 1 tablet in the morning 24h Active Advair Diskus 100 mcg-50 mcg Inhalation Twice a day 1 puff 12h Nov, Not-Taking Phenobarbital 97.2 mg 1 tablet 24h 24 Feb, 2014 Not-Taking Scooter N/A as directed May, Not-Taking Lisinopril 20 MG Orally Once a day 1 tablet 24h Active Metoprolol Tartrate 50 mg Orally Twice a day 1 tablet with food 12h Sep 30 day(s) Not-Taking Quetiapine Fumarate 25 MG Orally Once a day 1 tablet 24h Active Lasix 20 MG Orally Once a day 1 tablet 24h Active MS Contin 30 MG 1 tablet 12h Dec, Not-Taking RESULTS No Results PROCEDURES No Known procedures INSTRUCTIONS MEDICATIONS ADMINISTERED No Known Medications MEDICAL (GENERAL) HISTORY Type Description Date Medical History 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
--- OUTSIDE RECORDS SUMMARY | 2018-07-30 08:16 | XMS REPORT ---
Author Author TRACEE LANGE Organization [facility] [place] Address [address] [place] [address] Care Team Providers Care Analyst Competitive Intelligence Name Role Phone TRACEE LANGE Unavailable PROBLEMS Type Condition ICD9-CM Code RNM06-WK Code Onset Dates Condition Status SNOMED Code Problem Thoracic neuritis M54.14 Active 11605246 Problem Intracranial injury, without loss of consciousness, subsequent encounter S06.9X0D Active 806331029 Problem Ventricular arrhythmia I49.9 Active 07726051 Problem Epileptic seizure, generalized G40.309 Active 85425357 Problem Hypertension, benign I10 Active 44794892 Problem Lumbar neuritis M54.16 Active 805036018 Problem GERD (gastroesophageal reflux disease) K21.9 Active 863599287 Problem Cardiomyopathy I42.9 Active 03231307 ALLERGIES No Known Allergies ENCOUNTERS Encounter Location Date Diagnosis [place] [address] [address] May, [place] [address] [address] May, Delirium R41.0 [place] [address] [address] [place] [id number] [place] [address] Apr, [place] [address] [address]- [address] February, Ventricular arrhythmia I49.9 [place] [address] [address]- [address] February, [place] [address] [address]- [address] Dec, Thoracic neuritis M54.14 ; Lumbar neuritis M54.16 and Epileptic seizure, generalized G40.309 [place] [address] [address]- [address]77 Sep, Epileptic seizure, generalized G40.309 and Lumbar neuritis M54.16 [place] [address] [address]- 270[address] Aug, Thoracic neuritis M54.14 and Lumbar neuritis M54.16 [place] [address] [address]- [address] Jun, [place] [address] [address]- 1616 Jun, Abscess of leg, left L02.416 [place] [address] [address]- [address] May, Lumbar neuritis M54.16 ; Thoracic neuritis M54.14 ; Intracranial injury, without loss of consciousness, subsequent encounter S06.9X0D and Cardiomyopathy I42.9 [place] [address] [address]- [address] Apr, Lumbar neuritis M54.16 [place] [address] 16[address]- 6617 Apr, [place] [address] [address]165- [address]69 Apr, Elevated liver enzymes R74.8 and Renal insufficiency N28.9 [place] [address] [address]- [address] Apr, Lumbar neuritis M54.16 ; Thoracic neuritis M54.14 ; Hypertension, benign I10 ; Cardiomyopathy I42.9 and Epileptic seizure, generalized G40.309 [place] [address] [address]- [address] Mar, [place] [address] [address]- [address] February, [place] [address] [address]- 9647 February, Lumbar neuritis M54.16 ; Thoracic neuritis M54.14 ; Hypertension, benign I10 ; Cardiomyopathy I42.9 and Epileptic seizure, generalized G40.309 [place] [address] [address]- [address] Dec, [facility] [place] [address] [address] Sep, Epigastric mass R19.06 [place] [address] [address]- 2096 Sep, Epigastric mass R19.06 [place] [address] 42575- 8800 Sep, [place] [address] 31487- 9623 Sep, Epigastric mass R19.06 [place] [address] [address]- 6[address] Sep, Epigastric mass R19.06 and Lung mass R91.8 [facility] [address] [address] Jul, Shortness of breath R06.02 ; Dysuria R30.0 and Acute bronchitis, unspecified organism J20.9 [place] [address] [address]36- [address] Jul, [place] [address] 59933- 9177 Jun, Seizures R56.9 ; Thoracic neuritis M54.14 ; Lumbar neuritis M54.16 and GERD (gastroesophageal reflux disease) K21.9 [facility] [place] [address] [address] Jan, [place] [address] [address]02- 6761 Sep, [place] [address] 45284- 6[address] Sep, Intracranial injury, without loss of consciousness, subsequent encounter S06.9X0D ; Cardiomyopathy I42.9 ; GERD (gastroesophageal reflux disease) K21.9 ; Hypertension, benign I10 ; Thoracic neuritis M54.14 and Lumbar neuritis M54.16 [facility] [place] [address] 90[address]- 9284 Mar, [facility] [place] [address] [address]- [address] Mar, Coronary atherosclerosis of unspecified type of vessel, cantwell or graft 414.00 ; Unspecified essential hypertension 401.9 ; Thoracic or lumbosacral neuritis or radiculitis, unspecified 724.4 and Other convulsions 780.39 [facility] [place] [address] 12499- 82[address] Jan, [facility] [place] [address] 6[address]24- 8538 Jan, [facility] [place] [address] 6[address]91- 0691 Nov, [facility] [place] [address] 6[address]23- 0995 Nov, [facility] [place] [address] 7[address]99- 1396 Nov, [facility] [place] [address] 08608- 3576 Nov, [facility] [place] [address] [address]- 4642 Nov, [facility] [place] [address] 15497- 6575 Nov, [facility] [place] [address] 6[address]76- 4156 Nov, [facility] [place] [address] [place] [address] Nov, 2014 [facility] [place] [facility] [address] [id number] [place] [address] 5500 Nov, 2014 [facility] [place] [facility] [address] [id number] [place] [address] Nov, [facility] [place] [facility] [address] [id number] [place] [address] Sep, [facility] [place] [facility] [address] [id number] [place] [address]- 6024 Sep, [facility] [place] [facility] [address] [id number] [place] [address]- 4301 Aug, [facility] [place] [facility] [address] [id number] [place] [address]- 0379 Aug, [facility] [place] [facility] [address] [id number] [place] [address]- 0078 Aug, [facility] [place] [facility] [address] [id number] [place] [address]- 1958 Aug, [facility] [place] [facility] [address] [id number] [place] [address]- 8434 Jul, [facility] [place] [facility] [address] [facility] [id number] [place] [address]- 7240 Jul, [facility] [place] [facility] [address] [id number] [place] [address]- 8939 Jul, [facility] [place] [facility] [address] [id number] [place] [address]- 0293 Jul, [facility] [place] [facility] [address] [id number] [place] [address]- 9556 Jun, [facility] [place] [facility] [address] [id number] [place] [address]- 7939 Jun, [facility] [place] [facility] [address] [id number] [place] [address]- 4533 Jun, [facility] [place] [facility] [address] [id number] [place] [address]- 9149 May, [facility] [place] [facility] [address] [id number] [place] [address]- 8915 May, [facility] [place] [facility] [address] [id number] [place] [address]- 7288 May, [facility] [place] [facility] [address] [id number] [place] [address]- 7002 May, [facility] [place] [facility] [address] [id number] [place] [address]- 9026 May, [facility] [place] [facility] [address] [id number] [place] [address]- 0644 May, [facility] [place] [facility] [address] [id number] [place] [address]- 4330 May, [facility] [place] [facility] [address] [id number] [place] [address]- 6516 May, [facility] [place] [facility] [address] [id number] [place] [address]- 8964 February, [facility] [place] [facility] [address] [id number] [place] [address]- 9703 February, [facility] [place] [facility] [address] [id number] [place] [address]- 8[address] Jan, [facility] [place] [facility] [address] [id number] [place] [address]- 2090 Jan, [facility] [place] [facility] [address] [id number] [place] [address]- 0275 Jan, [facility] [place] [facility] [address] [id number] [place] [address]- 2787 Jan, [facility] [place] [facility] [address] [id number] [place] [address]- 8173 Nov, [facility] [place] [facility] [address] [id number] [address] Nov, [facility] [address] [id number] [place] [address]- 4619 Nov, [facility] [address] [id number] [place] [address]- 3085 Nov, [facility] [address] [id number] [place] [address]- 0482 Sep, [facility] [address] [id number] [place] [address]- 7405 Sep, [facility] [address] [id number] [place] [address]- 7779 Sep, [facility] [address] [id number] [place] [address]- 7770 Sep, [facility] [address] [facility] [id number] [place] [address]- 9511 Sep, [facility] [address] [id number] [place] [address]- 8443 Sep, [facility] [address] [facility] [id number] [place] [address]- 8436 Jul, [facility] [address] [facility] [id number] [place] [address]- 3513 Jul, [facility] [address] [id number] [place] [address]- [address]85 30 Jun, 2013 [facility] [address] [id number] [place] [address]- 4040 23 Jun, 2013 [facility] [address] [id number] [place] [address]- 3443 17 Jun, 2013 [facility] [address] [facility] [id number] [place] [address]- 2419 May, [facility] [address] [place] [id number] May [facility] [address] [id number] [place] [address]- 4716 May, [facility] [address] [id number] [place] [address]- 7785 May, [facility] [place] [facility] [address] [id number] [place] [address]- 8958 May, [facility] [address] [id number] [place] [address]- 7983 May, [facility] [place] [facility] [address] [id number] [place] [address]- 0766 May, [facility] [place] [facility] [address] [id number] [place] [address]- 9482 Apr, [facility] [place] [facility] [address] [id number] [place] [address]- 1045 Apr, [facility] [address] [id number] [place] [address]- 7075 Apr, [facility] [address] [id number] [place] [address]- 5310 Apr, [facility] [place] [facility] [address] [id number] [place] [address]- 5596 Mar, [facility] [place] [facility] [address] [id number] [place] [address]- 7709 February, [facility] [place] [facility] [address] [id number] [place] [address]- 6184 Jan, [facility] [place] [facility] [address] [id number] [place] [address]- 2549 Dec, [facility] [place] [facility] [address] [id number] [place] [address]- 5181 Dec, [facility] [place] [facility] [address] [id number] [place] [address]- 2540 Dec, [facility] [place] [facility] [address] [id number] [place] [address]- 6500 Nov, [facility] [place] [facility] [address] [id number] [place] [address]- 9611 Nov, [facility] [place] [facility] [address] [id number] [place] [address]- 7036 Nov, [facility] [place] [facility] [address] [id number] [place] [address] Oct, [facility] [place] [facility] [address] [id number] [place] [address]- 6044 Oct, [facility] [place] [facility] [address] [id number] [place] [address]- 2384 Sep, [facility] [place] [facility] [address] [id number] [place] [address]- 4764 Sep, [facility] [place] [facility] [address] [id number] [place] [address]- 9060 Sep, [facility] [place] [facility] [address] [id number] [place] [address]- 8730 Sep, [facility] [place] [facility] [address] [id number] [place] [address]- 2487 Sep, [facility] [place] [facility] [address] [id number] [place] [address]- 7823 Sep, [facility] [place] [facility] [address] [id number] [place] [address]- 1997 Aug, [facility] [place] [facility] [address] [id number] [address]- 0115 Aug, [facility] [place] [facility] [address] [id number] [place] [address]- 7535 Aug, [facility] [place] [facility] [address] [id number] [place] [address]- 2823 Aug, [facility] [place] [facility] [address] [id number] [place] [address]- 9050 Aug, [facility] [place] [facility] [address] [id number] [place] [address]- 4086 Aug, [facility] [place] [facility] [address] [id number] [place] [address]- 7401 Aug, [facility] [place] [facility] [address] [id number] [place] [address]- 7514 Aug, [facility] [place] [facility] [address] [facility] [id number] [place] [address]- 4144 Aug, [facility] [place] [facility] [address] [id number] [place] [address]- 4608 Aug, [facility] [place] [facility] [address] [id number] [place] [address]- 0523 Jul, [facility] [place] [facility] [address] [id number] [place] [address]- 4252 Jul, [facility] [place] [facility] [address] [facility] [id number] [place] [address]- 4506 Jul, [facility] [place] [facility] [address] [facility] [id number] [place] [address]- 3501 Jul, [facility] [place] [facility] [address] [facility] [id number] [place] [address]- 8549 Jul, [facility] [place] [facility] [address] [facility] [id number] [place] [address]- 0832 Jul, [facility] [place] [facility] [address] [facility] [id number] [address]- 4864 Jul, [facility] [place] [facility] [address] [facility] [id number] [place] [address]- 0487 Jul, [facility] [place] [facility] [address] [facility] [id number] [place] [address]- 7987 18 Jul, 2012 [facility] [place] [facility] [address] [facility] [id number] [place] [address]- 4676 Jul, [facility] [place] [facility] [address] [facility] [id number] [place] [address]- 3281 Jul, [facility] [place] [facility] [address] [id number] [place] [address] 2546 17 Jul, 2012 [facility] [place] [facility] [address] [id number] [place] [address]- 8426 17 Jul, 2012 [facility] [place] [facility] [address] [id number] [place] [address]- 2546 Jul, [facility] [place] [facility] [address] [id number] [place] [address] 2546 02 Jul, 2012 [facility] [place] [facility] [address] [id number] [place] [address]- 0007 28 Jun, 2012 [facility] [place] [facility] [address] [id number] [place] [address]- 7176 24 Jun, 2012 [facility] [place] [facility] [address] [id number] [place] [address]- 3516 Jun, [facility] [place] [facility] [address] [id number] [place] [address]- 8150 May, [facility] [place] [facility] [address] [id number] [place] [address]- 4412 May, [facility] [place] [facility] [address] [id number] [place] [address]- 9896 Mar, [facility] [place] [facility] [address] [id number] [place] [address] 2546 Mar, [facility] [place] [facility] [address] [id number] [place] [address] 2546 February, [facility] [place] [facility] [address] [id number] [place] [address]- 2546 February, [facility] [place] [facility] [address] [id number] [place] [address]- 9696 Nov, [facility] [place] [facility] [address] [id number] [place] [address]- 2546 Oct, [facility] [place] [facility] [address] [id number] [place] [address]- 9815 Oct, [facility] [address] [id number] [place] [address]- 9154 Oct, [facility] [place] [facility] [address] [id number] [place] [address]- 7446 Aug, [facility] [place] [facility] [address] [id number] [place] [address]- 0606 Jul, [facility] [place] [facility] [address] [id number] [place] [address]- 8005 Sep, [facility] [place] [facility] [address] [id number] [place] [address]- 2198 Aug, [facility] [place] [facility] [address] [id number] [place] [address]- 8945 Jul, [facility] [place] [facility] [address] [id number] [place] [address]- 0716 Apr, [facility] [place] [facility] [address] [id number] [address]- 9960 February, [facility] [address] [id number] [place] [address]- 3284 Sep, [facility] [place] [facility] [address] [id number] [address]- 7110 30 Sep, 2009 [facility] [place] [facility] [address] [id number] [place] [address]- 4858 Sep, [facility] [place] [facility] [address] [id number] [place] [address]- 1180 15 Apr, 2009 [facility] [place] [facility] [address] [id number] [place] [address]- 5057 Mar, [facility] [place] [facility] [address] [id number] [address]- 5006 February, [facility] [place] [facility] [address] [id number] [place] [address]- 7898 15 Jan, 2009 [facility] [place] [facility] [address] [facility] [id number] [place] [address]- 2431 Jul, IMMUNIZATIONS No Known Immunizations SOCIAL HISTORY Never Assessed REASON FOR VISIT Hospital f/u WB-AR, 02/24/18 [facility] Heart complications, defibulator was placed last night 02/24/18 PLAN OF CARE VITAL SIGNS Height 63 in 2018-02-25 Weight 179 lbs 2018-02-25 Temperature 97.8 degrees Fahrenheit 2018-02-25 Heart Rate 92 bpm 2018-02-25 Respiratory Rate 20 2018-02-25 Oximetry on room air:98 % 2018-02-25 BMI 31.70 kg/m2 2018-02-25 Blood pressure systolic 130 mmHg 2018-02-25 Blood pressure diastolic 76 mmHg 2018-02-25 MEDICATIONS Medication Instructions Dosage Frequency Start Date End Date Duration Status Protonix 40 mg Orally Once a day 1 tablet 24h 15 Sep, 2015 Unknown ProAir HFA 108 (90 Base) MCG/ACT Inhalation every 4 hrs 2 puffs as needed 4h Jul, Unknown Flexeril 10 mg 1 tablet 12h May, Unknown Melatonin 3 MG Orally at bedtime 3 tablet at bedtime as needed with food Not-Taking MS Contin 30 MG 1 tablet 12h Dec, Unknown Aspirin 650 mg 1 Tablet by Oral route 6 times per hour Nov, Not-Taking Scooter N/A as directed May, Not-Taking Metoprolol Tartrate 50 mg Orally Twice a day 1 tablet with food 12h Sep 30 day(s) Unknown Reglan 10 mg Orally 4 times a day 1 tablet 6h 11 Jun, 2017 Unknown Advair Diskus 100 mcg-50 mcg Inhalation Twice a day 1 puff 12h Nov, Unknown Phenobarbital 97.2 mg 1 tablet 24h 24 Feb, 2014 Unknown Morphine Sulfate 15 MG Orally 2 times a day 1 tablet as needed 12h Dec, Unknown RESULTS No Results PROCEDURES No Known procedures INSTRUCTIONS MEDICATIONS ADMINISTERED No Known Medications MEDICAL (GENERAL) HISTORY Type Description Date Medical History 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
--- OUTSIDE RECORDS SUMMARY | 2018-07-30 08:16 | XMS REPORT ---
Author Author TRACEE LANGE Organization [facility] Address [address] [place] [address] Care Team Providers Care Deputy Sheriff Chief Name Role Phone TRACEE LANGE Unavailable PROBLEMS Type Condition ICD9-CM Code AOB94-PK Code Onset Dates Condition Status SNOMED Code Problem Thoracic neuritis M54.14 Active 43882818 Problem Intracranial injury, without loss of consciousness, subsequent encounter S06.9X0D Active 685559033 Problem Ventricular arrhythmia I49.9 Active 72943798 Problem Epileptic seizure, generalized G40.309 Active 63620702 Problem Hypertension, benign I10 Active 19960171 Problem Lumbar neuritis M54.16 Active 370236931 Problem GERD (gastroesophageal reflux disease) K21.9 Active 634557479 Problem Cardiomyopathy I42.9 Active 92087998 ALLERGIES No Information ENCOUNTERS Encounter Location Date Diagnosis [facility] [id number] [place] [address] 57103- 4938 Jun, [facility] [id number] [place] [address] 02571- 2895 May, [facility] [id number] [place] [address] 57119- 7174 May, [facility] [id number] [place] [address] 10427- 4855 May, [facility] [id number] [place] [address] 01367- 9563 May, Seizures R56.9 [facility] [id number] [place] [address] 02608- 8281 May, [facility] [id number] [place] [address] 68411- 9013 May, Delirium R41.0 [facility] [id number] [place] [address] 35197- 7241 Apr, [facility] [id number] [place] [address] 68429- 0186 February, Ventricular arrhythmia I49.9 [facility] [id number] [place] [address] 72956- 5631 February, [facility] [address] 68274- 7934 Dec, Thoracic neuritis M54.14 ; Lumbar neuritis M54.16 and Epileptic seizure, generalized G40.309 [address] 42886- 6907 Sep, Epileptic seizure, generalized G40.309 and Lumbar neuritis M54.16 [place] [id number] [place] [address] 77540- 4977 Aug, Thoracic neuritis M54.14 and Lumbar neuritis M54.16 [place] [id number] [place] [address] 46253- 2692 Jun, [place] [address] 86888- 7485 Jun, Abscess of leg, left L02.416 [place] [id number] [place] [address] 49406- 9866 May, Lumbar neuritis M54.16 ; Thoracic neuritis M54.14 ; Intracranial injury, without loss of consciousness, subsequent encounter S06.9X0D and Cardiomyopathy I42.9 [facility] [id number] [place] [address] 28165- 0767 Apr, Lumbar neuritis M54.16 [place] [id number] [place] [address] 50391- 8627 Apr, [facility] [id number] [place] [address] 59735- 8990 Apr, Elevated liver enzymes R74.8 and Renal insufficiency N28.9 [facility] [id number] [place] [address] 32578- 4925 Apr, Lumbar neuritis M54.16 ; Thoracic neuritis M54.14 ; Hypertension, benign I10 ; Cardiomyopathy I42.9 and Epileptic seizure, generalized G40.309 [place] [id number] [place] [address] 27452- 9071 Mar, [facility] [address] 16644- 9255 February, [place] [id number] [place] [address] 69749- 3082 February, Lumbar neuritis M54.16 ; Thoracic neuritis M54.14 ; Hypertension, benign I10 ; Cardiomyopathy I42.9 and Epileptic seizure, generalized G40.309 [place] [id number] [place] [address] 18270- 9750 Dec, [facility] [address] 39886- 4280 Sep, Epigastric mass R19.06 [place] [address] 19411- 5769 Sep, Epigastric mass R19.06 [place] [id number] [place] [address] 38577- 3569 Sep, [facility] [id number] [place] [address] 47928- 7673 Sep, Epigastric mass R19.06 [place] [id number] [place] [address] 76860- 2165 Sep, Epigastric mass R19.06 and Lung mass R91.8 [facility] [id number] [place] [address] 82179 -3546 Jul, Shortness of breath R06.02 ; Dysuria R30.0 and Acute bronchitis, unspecified organism J20.9 [facility] [id number] [place] [address] 43136- 6813 Jul, [facility] [address] 42832- 4612 Jun, Seizures R56.9 ; Thoracic neuritis M54.14 ; Lumbar neuritis M54.16 and GERD (gastroesophageal reflux disease) K21.9 [facility] [address] 40631 -8415 Jan, [facility] [address] 36560- 7287 Sep, [place] [address] 93241- 5189 Sep, Intracranial injury, without loss of consciousness, subsequent encounter S06.9X0D ; Cardiomyopathy I42.9 ; GERD (gastroesophageal reflux disease) K21.9 ; Hypertension, benign I10 ; Thoracic neuritis M54.14 and Lumbar neuritis M54.16 [facility] [address] 70392- 8369 Mar, [place] [address] 85532- 4387 Mar, Coronary atherosclerosis of unspecified type of vessel, [place] or graft 414.00 ; Unspecified essential hypertension 401.9 ; Thoracic or lumbosacral neuritis or radiculitis, unspecified 724.4 and Other convulsions 780.39 [place] [id number] [place] [address] 15392- 8940 Jan, [facility] [address] 20652- 5328 Jan, [facility] [address] 57504- 0375 Nov, [facility] [address] 20488- 8469 Nov, [facility] [address] 02755- 3912 Nov, 2014 [facility] [place] [facility] [address] [id number] [place] [address]- 4726 Nov, 2014 [facility] [place] [facility] [address] [facility] [id number] [place] 5106 Nov, 2014 [facility] [place] [facility] [address] [facility] [id number] [place] [address]- 2586 Nov, 2014 [facility] [place] [facility] [address] [facility] [id number] [place] [address]- 7925 Nov, 2014 [facility] [place] [facility] [address] [facility] [id number] [place] [address]- 9737 Nov, 2014 [facility] [place] [facility] [id number] [place] [address]- 5892 Nov, 2014 [facility] [place] [facility] [id number] [place] [address]- 5708 Nov, 2014 [facility] [place] [facility] [address] [facility] [id number] [place] [address]- 0600 Sep, [facility] [place] [facility] [id number] [place] [address]- 0652 Sep, [facility] [place] [facility] [id number] [place] [address]- 3407 Aug, [facility] [place] [facility] [address] [facility] [id number] [place] [address]- 0926 Aug, [facility] [place] [facility] [address] [facility] [id number] [address]- 9092 Aug, [facility] [place] [facility] [address] [facility] [id number] [place] [address]- 6609 Aug, [facility] [place] [facility] [address] [facility] [id number] [place] [address]- 1560 Jul, [facility] [place] [facility] [address] [facility] [id number] [place] [address]- 6741 Jul, [facility] [place] [facility] [address] [id number] [place] [address]- 0766 Jul, [facility] [place] [facility] [address] [id number] [place] [address]- 7112 Jul, [facility] [place] [facility] [address] [id number] [place] [address]- 9073 Jun, [facility] [place] [facility] [address] [id number] [place] [address]- 3970 Jun, [facility] [place] [facility] [address] [id number] [place] [address]- 1721 Jun, [facility] [place] [facility] [address] [id number] [place] [address]- 6656 May, [facility] [place] [facility] [address] [id number] [place] [address]- 4843 May, [facility] [place] [facility] [address] [id number] [place] [address]- 5716 May, [facility] [place] [facility] [address] [id number] [place] [address]- 3949 May, [facility] [place] [facility] [address] [id number] [place] [address]- 6636 May, [facility] [place] [facility] [address] [id number] [place] [address]- 6688 May, [facility] [place] [facility] [address] [id number] [address]- 0921 May, [facility] [place] [facility] [address] [id number] [place] [address]- 5841 May, [facility] [place] [facility] [address] [id number] [place] [address]- 5518 February, [facility] [place] [facility] [address] [id number] [place] [address]- 7169 February, [facility] [place] [facility] [address] [id number][place] [address]- 0537 Jan, [facility] [place] [facility] [address] [id number] [place] 3402 Jan, [facility] [place] [facility] [address] [id number] [place] [address]- 4316 Jan, [facility] [place] [facility] [address] [facility] [id number] [place] [address]- 3269 Jan, [facility] [place] [facility] [address] [id number] [place] [address]- 6849 Nov, [facility] [place] [facility] [address] [id number] [place] [address]- 5367 Nov, [facility] [place] [facility] [address] [facility] [id number] [place] [address]- 7600 Nov, [facility] [place] [facility] [address] [facility] [id number] [place] [address]- 1172 Nov, [facility] [place] [facility] [address] [facility] [id number] [place] [address]- 4929 Sep, [facility] [place] [facility] [address] [facility] [id number] [place] [address]- 7208 Sep, [facility] [place] [facility] [address] [facility] [id number] [place] [address]- 6651 Sep, [facility] [place] [facility] [address] [facility] [id number] [place] [address]- 5373 07 Sep, 2013 [facility] [place] [facility] [address] [facility] [id number][place] [address]- 6031 Sep, [facility] [place] [facility] [address] [facility] [id number] [place] [address]- 8449 Sep, [facility] [place] [facility] [address] [facility] [id number] [place] 7084 Jul, [facility] [place] [facility] [address] [facility] [id number] [place] 5546 Jul, [facility] [place] [facility] [address] [id number] [place] [address]- 4558 Jun, [facility] [address] [id number] [place] [address]- 0216 Jun, [facility] [address] [id number] [place] [address]- 2206 Jun, [facility] [address] [id number] [place] [address]- 7747 May, [facility] [address] [facility] [id number] May [facility] [address] [id number] [place] [address]- 7678 May, [facility] [address] [id number] [place] [address]- 0886 May, [facility] [address] [id number] [place] [address]- 9850 May, [facility] [address] [id number] [place] [address]- 9788 May, [facility] [address] [id number] [place] [address]- 6165 May, [facility] [address] [id number] [place] [address]- 0485 Apr, [facility] [address] [id number] [place] [address]- 1109 Apr, [facility] [address] [id number] [place] [address]- 2546 Apr, [facility] [address] [id number] [place] [address]- 1626 Apr, [facility] [address] [id number] [place] [address]- 2546 Mar, [facility] [address] [id number] [place] [address]- 2642 February, [facility] [address] [id number] [place] [address]- 5728 Jan, [facility] [address] [id number] [place] [address]- 1269 Dec, [facility] [address] [id number] [place] [address]- 6098 Dec, [facility] [place] [facility] [address] [id number] [place] [address]- 4519 Dec, [facility] [address] [id number] [place] [address]- 1542 Nov, [facility] [address] [id number] [place] [address]- 3151 Nov, [facility] [address] [id number] [place] [address]- 1837 Nov, [facility] [address] [id number] [place] [address]- 2516 Oct, [facility] [address] [id number] [place] [address]- 1893 Oct, [facility] [address] [facility] [id number] [place] [address]- 9163 Sep, [facility] [address] [id number][place] [address]- 3640 Sep, [facility] [place] [facility] [address] [id number][place] [address]- 2925 Sep, [facility] [place] [facility] [address] [id number] [place] [address]- 9042 Sep, [facility] [place] [facility] [address] [id number] [place] [address]- 3311 Sep, [facility] [place] [facility] [address] [facility] [id number] [place] [address]- 9854 Sep, [facility] [place] [facility] [address] [id number] [place] [address]- 2385 Aug, [facility] [place] [facility] [address] [id number] [place] [address]- 7894 Aug, [facility] [place] [facility] [address] [id number] [place] [address]- 7047 Aug, [facility] [place] [facility] [address] [id number] [place] [address]- 9065 Aug, [facility] [place] [facility] [address] [id number] [place] [address]- 9691 Aug, [facility] [place] [facility] [address] [id number] [place] [address]- 9459 Aug, [facility] [place] [facility] [address] [id number] [place] [address]- 3276 Aug, [facility] [place] [facility] [address] [id number] [place] [address]- 7214 Aug, [facility] [place] [facility] [address] [id number] [place] [address]- 1393 Aug, [facility] [place] [facility] [address] [id number] [place] [address]- 6651 Aug, [facility] [place] [facility] [address] [facility] [id number] [place] [address]- 1148 Jul, [facility] [place] [facility] [address] [id number] [place] [address]- 3927 Jul, [facility] [place] [facility] [address] [id number], [place] [address]- 1170 Jul, [facility] [place] [facility] [address] [id number] [place] [address]- 2497 Jul, [facility] [place] [facility] [address] [id number] [place] [address]- 5450 Jul, [facility] [place] [facility] [address] [id number], [place] [address]- 4888 Jul, [facility] [place] [facility] [address] [id number] [place] [address]- 0923 Jul, [facility] [place] [facility] [address] [id number] [place] [address]- 3156 Jul, [facility] [place] [facility] [address] [id number] [place] [address]- 0675 18 Jul, 2012 [facility] [place] [facility] [address] [id number] [place] [address]- 5556 Jul, [facility] [place] [facility] [address] [id number] [place] [address]- 2607 Jul, [facility] [place] [facility] [address] [id number] [place] [address]- 6072 Jul, [facility] [place] [facility] [address] [id number] [place] [address]- 9916 Jul, [facility] [place] [facility] [address] [id number] [place] [address]- 0260 Jul, [facility] [place] [facility] [address] [id number] [place] [address]- 0124 Jul, [facility] [place] [facility] [address] [id number] [place] [address]- 6093 28 Jun, 2012 [facility] [place] [facility] [address] [id number] [place] [address]- 3197 24 Jun, 2012 [facility] [place] [facility] [address] [id number] [place] [address]- 2119 19 Jun, 2012 [facility] [place] [facility] [address] [id number] [place] [address]- 8457 May, [facility] [place] [facility] [address] [id number] [place] [address]- 3983 May, [facility] [place] [facility] [address] [id number] [place] [address]- 2607 Mar, [facility] [place] [facility] [address] [id number] [place] [address]- 4156 Mar, [facility] [address] [id number] [place] [address]- 2497 February, [facility] [place] [facility] [address] [id number] [place] [address]- 2826 February, [facility] [place] [facility] [address] [id number] [place] [address]- 2910 Nov, [facility] [place] [facility] [address] [id number] [place] [address]- 9286 Oct, [facility] [place] [facility] [address] [id number] [place] [address]- 4884 Oct, [facility] [place] [facility] [address] [id number] [place] [address]- 0651 Oct, [facility] [place] [facility] [address] [id number] [place] [address]- 6363 Aug, [facility] [place] [facility] [address] [id number] [place] [address]- 1846 Jul, [facility] [place] [facility] [address] [id number] [place] [address]- 4390 Sep, [facility] [place] [facility] [address] [id number] [place] [address]- 0092 Aug, [facility] [place] [facility] [address] [id number], [place] [address]- 7039 Jul, [facility] [place] [facility] [address] [id number] [place] [address]- 0341 Apr, [facility] [place] [facility] [address] [id number] [place] [address]- 3884 February, [facility] [place] [facility] [address] [id number] [place] [address]- 2821 Sep, [facility] [place] [facility] [address] [id number] [place] [address]- 5129 Sep, [facility] [place] [facility] [address] [facility] [id number] [place] [address] 2546 Sep, [facility] [address] [id number] [address]- 6757 Apr, [facility] [address] [address]- 2547 Mar, [facility] [id number] [address]- 8709 February, [facility] [address] [address]- 5622 Jan, [facility] [id number] [place] [address] 975[address]- 4097 Jul, IMMUNIZATIONS No Known Immunizations SOCIAL HISTORY Never Assessed REASON FOR VISIT medication PLAN OF CARE VITAL SIGNS MEDICATIONS Unknown Medications RESULTS No Results PROCEDURES No Known procedures INSTRUCTIONS MEDICATIONS ADMINISTERED No Known Medications MEDICAL (GENERAL) HISTORY Type Description Date Medical History 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
--- OUTSIDE RECORDS SUMMARY | 2018-07-30 08:17 | XMS REPORT ---
Author Author TRACEE LANGE Organization [facility] Address [address] [place] [address] Care Team Providers Care Rotoprinter Name Role Phone TRACEE LANGE Unavailable PROBLEMS Type Condition ICD9-CM Code ART31-GM Code Onset Dates Condition Status SNOMED Code Problem Thoracic neuritis M54.14 Active 95872957 Problem Intracranial injury, without loss of consciousness, subsequent encounter S06.9X0D Active 472458310 Problem Ventricular arrhythmia I49.9 Active 92837634 Problem Epileptic seizure, generalized G40.309 Active 97410371 Problem Hypertension, benign I10 Active 79658823 Problem Lumbar neuritis M54.16 Active 901625330 Problem GERD (gastroesophageal reflux disease) K21.9 Active 138967122 Problem Cardiomyopathy I42.9 Active 26697773 ALLERGIES No Information ENCOUNTERS Encounter Location Date Diagnosis [place] [address] [address] May, [place] [address] [address] May, Delirium R41.0 [place] [address] [place] [id number] [place] [address]- [address] Apr, [place] [address] [address]- [address] February, Ventricular arrhythmia I49.9 [place] [address] [place] [id number] [place] [address]- 3553 February, [place] [address] [address]- [address] Dec, Thoracic neuritis M54.14 ; Lumbar neuritis M54.16 and Epileptic seizure, generalized G40.309 [place] [address] [address]- [address] Sep, Epileptic seizure, generalized G40.309 and Lumbar neuritis M54.16 [place] [address] [address]- [address] Aug, Thoracic neuritis M54.14 and Lumbar neuritis M54.16 [place] [address] [address]- 1645 Jun, [place] [address] [address]- [address] Jun, Abscess of leg, left L02.416 [place] [address] [address]- 12[address] May, Lumbar neuritis M54.16 ; Thoracic neuritis M54.14 ; Intracranial injury, without loss of consciousness, subsequent encounter S06.9X0D and Cardiomyopathy I42.9 [place] [address] [address]- 355[address] Apr, Lumbar neuritis M54.16 [place] [address] [address]- 7[address] Apr, [place] [address] [address]- [address] Apr, Elevated liver enzymes R74.8 and Renal insufficiency N28.9 [place] [address] [address]- [address] Apr, Lumbar neuritis M54.16 ; Thoracic neuritis M54.14 ; Hypertension, benign I10 ; Cardiomyopathy I42.9 and Epileptic seizure, generalized G40.309 [place] [address] [address]- 1785 Mar, [place] [address] [address]- [address] February, [place] [address] [address]- 39[address] February, Lumbar neuritis M54.16 ; Thoracic neuritis M54.14 ; Hypertension, benign I10 ; Cardiomyopathy I42.9 and Epileptic seizure, generalized G40.309 [place] [address] [address]- [address] Dec, [place] [address] [address]- 4218 Sep, Epigastric mass R19.06 [place] [address] [address]- 1085 Sep, Epigastric mass R19.06 [place] [address] [address]- 7453 Sep, [place] [address] 32932- 9511 Sep, Epigastric mass R19.06 [place] [address] [address]- 7532 Sep, Epigastric mass R19.06 and Lung mass R91.8 [facility] [place] [address] [address] Jul, Shortness of breath R06.02 ; Dysuria R30.0 and Acute bronchitis, unspecified organism J20.9 [place] [address] [address]- 2069 Jul, [place] [address] [address]- 9185 Jun, Seizures R56.9 ; Thoracic neuritis M54.14 ; Lumbar neuritis M54.16 and GERD (gastroesophageal reflux disease) K21.9 [facility] [place] [address] [address] Jan, [place] [address] [address]- 28[address] Sep, [place] [address] [address]- 1624 Sep, Intracranial injury, without loss of consciousness, subsequent encounter S06.9X0D ; Cardiomyopathy I42.9 ; GERD (gastroesophageal reflux disease) K21.9 ; Hypertension, benign I10 ; Thoracic neuritis M54.14 and Lumbar neuritis M54.16 [facility] [address] [address]- [address]134 Mar, [facility] [address] [address]- 9797 Mar, Coronary atherosclerosis of unspecified type of vessel, ch[place] or graft 414.00 ; Unspecified essential hypertension 401.9 ; Thoracic or lumbosacral neuritis or radiculitis, unspecified 724.4 and Other convulsions 780.39 [facility] [address] [address]- 94[address] Jan, [facility] [address] [address]- 9009 Jan, [facility] [address] 93[address]- 3365 Nov, [facility] [address] 06[address]- 38[address] Nov, [facility] [address] 16[address]- 4984 Nov, [facility] [address] 8[address]84- 9637 Nov, [facility] [address] 237[address]- 3660 Nov, [facility] [address] [address]78- 8969 Nov, [facility] [address] 8[address]- 8574 Nov, [facility] [address] [address]- 3202 Nov, 2014 [facility] [place] [facility] [address] [id number] [place] [address]- 1681 Nov, [facility] [place] [facility] [address] [id number] [place] [address]- 7755 Nov, [facility] [place] [facility] [address] [facility] [id number] [place] [address]- 0759 Sep, [facility] [place] [facility] [address] [id number] [place] [address]- 5352 Sep, [facility] [place] [facility] [address] [id number] [place] [address]- 3386 Aug, [facility] [place] [facility] [address] [id number] [place] [address]- 8559 Aug, [facility] [place] [facility] [address] [id number] [place] [address]- 5952 Aug, [facility] [place] [facility] [address] [id number] [place] [address]- 2222 Aug, [facility] [place] [facility] [address] [id number] [place] [address]- 7819 Jul, [facility] [place] [facility] [address] [facility] [id number] [place] [address]- 3750 Jul, [facility] [place] [facility] [address] [id number] [place] [address]- 5733 Jul, [facility] [place] [facility] [address] [id number] [place] [address]- 7244 Jul, [facility] [place] [facility] [address] [id number] [place] [address]- 3786 Jun, [facility] [place] [facility] [address] [id number] [place] [address]- 2207 Jun, [facility] [place] [facility] [address] [id number], [place] [address]- [address] Jun, [facility] [place] [facility] [address] [id number] [place] [address]- 2090 May, [facility] [place] [facility] [address] [id number] [place] [address]- 54[address] May, [facility] [place] [facility] [address] [id number] [place] [address]- 0894 May, [facility] [place] [facility] [address] [id number] [place] [address]- 3324 May, [facility] [place] [facility] [address] [id number] [place] [address]- 8575 May, [facility] [place] [facility] [address] [id number] [place] [address]- 5245 May, [facility] [place] [facility] [address] [id number] [place] [address]- 5919 May, [facility] [place] [facility] [address] [id number] [place] [address]- 9833 May, [facility] [place] [facility] [address] [id number] [place] [address]- 9963 February, [facility] [place] [facility] [address] [id number] [place] [address]- 6796 February, [facility] [place] [facility] [address] [id number] [place] [address]- 7910 Jan, [facility] [place] [facility] [address] [id number] [place] [address]- 4542 Jan, [facility] [place] [facility] [address] [id number] [place] [address]- 5016 Jan, [facility] [place] [facility] [address] [id number] [place] [address]- 0826 Jan, [facility] [place] [facility] [address] [id number] [place] [address]- 3843 Nov, [facility] [place] [facility] [address] [id number] [place] [address]- 5130 Nov, [facility] [address] [id number] [place] [address]- 7265 Nov, [facility] [address] [id number], [place] [address]- 8[address] 18 Nov, 2013 [facility] [address] [id number] [place] [address]- 3299 Sep, [facility] [address] [id number] [place] [address]- 0975 Sep, [facility] [address] [id number] [place] [address]- 6535 Sep, [facility] [address] [id number] [place] [address]- 4256 Sep, [facility] [address] [facility] [id number] [place] [address]- 0274 Sep, [facility] [address] [id number] [place] [address]- 3808 Sep, [facility] [address] [facility] [id number] [place] [address]- 0940 Jul, [facility] [address] [facility] [id number], [place] [address]- 288[address] Jul, [facility] [address] [id number], [place] [address]- 7502 30 Jun, 2013 [facility] [address] [id number], [place] [address]- 7159 23 Jun, 2013 [facility] [address] [id number], [place] [address]- 0962 17 Jun, 2013 [facility] [address] [facility] [id number], [place] [address]- 3496 May, [facility] [address] [place] [id number] May [facility] [address] [id number] [place] [address]- 2830 May, [facility] [address] [id number] [place] [address]- 3179 May, [facility] [place] [facility] [address] [id number] [place] [address]- 7172 May, [facility] [address] [id number] [place] [address]- 6386 May, [facility] [place] [facility] [address] [id number] [place] [address]- 5865 May, [facility] [address] [id number] [place] [address]- 9838 Apr, [facility] [address] [id number] [place] [address]- 8327 Apr, [facility] [address] [id number] [place] [address]- 3955 Apr, [facility] [address] [id number] [place] [address]- 3689 Apr, [facility] [address] [id number] [place] [address]- 4827 Mar, [facility] [address] [id number] [place] [address]- 7981 February, [facility] [address] [id number] [place] [address]- 6107 Jan, [facility] [place] [facility] [address] [id number] [place] [address] 2545 Dec, [facility] [place] [facility] [address] [id number] [place] [address]- 6063 Dec, [facility] [place] [facility] [address] [id number] [place] [address]- 9421 Dec, [facility] [place] [facility] [address] [id number] [place] [address]- 1894 Nov, [facility] [place] [facility] [address] [id number] [place] [address]- 3521 Nov, [facility] [place] [facility] [address] [id number] [place] [address] Nov, [facility] [place] [facility] [address] [id number] [place] [address]- 3191 Oct, [facility] [place] [facility] [address] [id number] [place] [address]- 8343 Oct, [facility] [place] [facility] [address] [id number] [place] [address] Sep, [facility] [place] [facility] [address] [id number] [place] [address]- 4586 Sep, [facility] [place] [facility] [address] [id number] [place] [address]- 3170 Sep, [facility] [place] [facility] [address] [id number] [place] [address]- 9419 Sep, [facility] [place] [facility] [address] [id number] [place] [address]- 9425 Sep, [facility] [place] [facility] [address] [id number] [place] [address]- 9653 Sep, [facility] [place] [facility] [address] [id number] [place] [address]- 9206 Aug, [facility] [place] [facility] [address] [id number] [place] [address]- 4405 Aug, [facility] [place] [facility] [address] [id number] [place] [address]- 2079 Aug, [facility] [place] [facility] [address] [id number] [place] [address]- 8633 Aug, [facility] [place] [facility] [address] [id number] [place] [address]140 Aug, [facility] [place] [facility] [address] [id number], [place] [address]- 5590 Aug, [facility] [place] [facility] [address] [id number] [place] [address]- 6378 Aug, [facility] [place] [facility] [address] [id number] [place] [address]- 1580 Aug, [facility] [place] [facility] [address] [id number] [place] [address]- 7228 Aug, [facility] [place] [facility] [address] [id number] [place] [address]- 5599 Aug, [facility] [place] [facility] [address] [id number] [place] [address]- 8100 Jul, [facility] [place] [facility] [address] [id number] [place] [address]- 9851 Jul, [facility] [place] [facility] [address] [id number] [place] [address]- 3501 Jul, [facility] [place] [facility] [address] [id number] [place] [address]- 6865 Jul, [facility] [place] [facility] [address] [id number] [place] [address]- 0263 Jul, [facility] [place] [facility] [address] [id number] [place] [address]- 1490 Jul, [facility] [place] [facility] [address] [id number], [place] [address]- 2420 Jul, [facility] [place] [facility] [address] [id number], [place] [address]- 4644 Jul, [facility] [place] [facility] [address] [id number], [place] [address]- 3020 18 Jul, 2012 [facility] [place] [facility] [address] [facility] [id number], [place] [address]- 0082 Jul, [facility] [place] [facility] [address] [facility] [id number] [place] [address]- 8154 Jul, [facility] [place] [facility] [address] [id number] [place] [address]- 2546 17 Jul, 2012 [facility] [place] [facility] [address] [id number] [place] [address] 2546 17 Jul, 2012 [facility] [place] [facility] [address] [id number] [place] [address]- 2546 Jul, [facility] [place] [facility] [address] [id number] [place] [address]- 2546 Jul, [facility] [place] [facility] [address] [id number] [place] [address]- 2546 28 Jun, 2012 [facility] [place] [facility] [address] [id number] [place] [address] 2546 24 Jun, 2012 [facility] [place] [facility] [address] [id number] [place] [address] 2546 Jun, [facility] [place] [facility] [address] [id number] [place] [address]- 3356 May, [facility] [place] [facility] [address] [id number] [place] [address]- 3476 May, [facility] [place] [facility] [address] [id number] [place] [address]- 6116 Mar, [facility] [place] [facility] [address] [id number] [place] [address]- 2546 Mar, [facility] [place] [facility] [address] [id number] [place] [address]- 2546 February, [facility] [place] [facility] [address] [id number] [place] [address]- 2546 February, [facility] [place] [facility] [address] [id number] [place] [address]- 2546 Nov, [facility] [place] [facility] [address] [id number] [place] [address]- 2546 Oct, [facility] [place] [facility] [address] [id number] [place] [address]- 0407 Oct, [facility] [address] [id number] [place] [address]- 7787 Oct, [facility] [place] [facility] [address] [id number] [place] [address]- 6955 Aug, [facility] [place] [facility] [address] [id number] [place] [address]- 2809 Jul, [facility] [place] [facility] [address] [id number] [place] [address]- 6036 Sep, [facility] [place] [facility] [address] [id number] [place] [address]- 9091 Aug, [facility] [place] [facility] [address] [id number] [place] [address]- 8560 Jul, [facility] [place] [facility] [address] [id number] [place] [address]- 3212 Apr, [facility] [place] [facility] [address] [id number] [place] [address]- 0090 February, [facility] [place] [facility] [address] [id number] [place] [address]- 8340 Sep, [facility] [place] [facility] [address] [id number], [place] [address]- 2703 30 Sep, 2009 [facility] [place] [facility] [address] [id number], [place] [address]- 9156 Sep, [facility] [place] [facility] [address] [id number], [place] [address]- 3542 15 Apr, 2009 [facility] [place] [facility] [address] [id number] [place] [address]- 6298 Mar, [facility] [place] [facility] [address] [id number], [place] [address]- 4111 February, [facility] [place] [facility] [address] [id number], [place] [address]- 2018 15 Jan, 2009 [facility] [place] [facility] [address] [facility] [id number] [place] [address]- 7092 Jul, IMMUNIZATIONS No Known Immunizations SOCIAL HISTORY Never Assessed REASON FOR VISIT records PLAN OF CARE VITAL SIGNS MEDICATIONS Unknown Medications RESULTS No Results PROCEDURES No Known procedures INSTRUCTIONS MEDICATIONS ADMINISTERED No Known Medications MEDICAL (GENERAL) HISTORY Type Description Date Medical History 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
--- OUTSIDE RECORDS SUMMARY | 2018-07-30 08:32 | XMS REPORT | Continuity of Care Document ---
Demographics Preferred Language Unknown Marital Status Unknown Jehovah'S Witness Affiliation Unknown Race Unknown Ethnic Group Unknown Author Author [facility] Address Unknown Phone Unavailable Allergies Active Description Code Type Severity Reaction Onset Reported/Identified Relationship to Patient Clinical Status Yes nitrous oxide [id number] Drug Allergy Unknown N/A 06/08/2007 Yes AILEEN Inhibitors [id number] Drug Allergy Unknown N/A 05/25/2014 Medications There [...] Acute 02/21/2009 466.0 Bronchitis, Acute 02/21/[address] APRN 466.0 Bronchitis, Acute 02/21/2009 TRACEE LANGE [...] PRECIADO MD 786.50 Chest Pain 10/04/2009 KRANTHI PREICADO MD 840.9 SPRAIN/STRAIN SHOULDER/ARM 10/04/2009 840.9 SPRAIN/STRAIN [...] Upper Respiratory Infections Of Unspecified Site 08/20/2010 TRCAEE LANGE APRN 491.21 Obstructive Chronic Bronchitis With (acute) Exacerbation 08/20/2010 TRACEE LANGE APRN 465.9 Acute Upper Respiratory Infections Of Unspecified Site 08/20/2010 TRACEE LANGE APRN 491.21 Obstructive Chronic Bronchitis With (acute) Exacerbation 08/20/2010 RTACEE LANGE APRN 465.9 Acute Upper Respiratory Infections [...] OBSTRUCTIVE SLEEP APNEA (ADULT) (PEDIATRIC) 01/07/2011 TRACEE ALNGE APRN 327.23 OBSTRUCTIVE SLEEP APNEA (ADULT) (PEDIATRIC) [...] NOS 08/04/2012 Ot 414.01 CORONARY ATHEROSCLEROSIS OF [place] CORON 08/04/2012 Ot 496 CHR AIRWAY OBSTRUCT [...] DO 788.30 URINARY INCONTINENCE UNSPECIFIED 09/16/2012 ANISA STUDY ASSISTANT, TRACEE T 788.30 URINARY INCONTINENCE UNSPECIFIED 09/16/2012 [...] APRN T 528.9 ORAL MUCOCELE 10/19/2012 KRANTHI PERCIADO MD 528.9 ORAL MUCOCELE 10/28/2012 TRACEE LANGE [...] NOS 12/20/2012 Ot 414.01 CORONARY ATHEROSCLEROSIS OF [place] CORON 12/20/2012 Ot 486 PNEUMONIA, ORGANISM NOS [...] CASTILLO MD Ot 414.01 CORONARY ATHEROSCLEROSIS OF [place] CORON 05/11/2013 NGOC CASTILLO MD Ot 425.4 [...] TRACEE LANGE APRN 425.4 CARDIOMYOPHATHY 05/21/2013 ANISA STUDY ASSISTANT, TRACEE T 854.00 INTRACRANIAL INJURY OF OTHER [...] MD Ot 786.50 CHEST PAIN NOS 05/30/2013 ASNTHOSH LOWE MD Ot V58.66 LONG-TERM (CURRENT) USE [...] DEGROOT DO Ot 414.01 CORONARY ATHEROSCLEROSIS OF [place] CORON 06/24/2013 GAVI DEGROOT DO Ot 425.4 PRIM CARDIOMYOPATHY NEC 06/24/2013 GAVI DEGROOT DO Ot 438.89 OTH LATE EFFECT-CEREBROVASCULAR DISEASE 06/24/2013 GAVI DERGOOT DO Ot 491.20 OBSTR CHRONIC BRONCHITIS, W/O [...] AMANDA MD Ot 414.01 CORONARY ATHEROSCLEROSIS OF [place] CORON 09/14/2013 ABELARDO AMANDA MD Ot 425.4 [...] MARIN BRIGHT DOA K Ot Z79.899 OTHER LONGTERM (CURRENT) DRUG THERAPY 08/05/2016 KAILA LANGE HOLA [...] MD Ot I25.10 ATHSCL HEART DISEASE OF [place] CORONARY 11/23/2016 QUIN JONES MD Ot J44.9 CHRONIC OBSTRUCTIVE PULMONARY DISEASE, U 11/23/2016 QUIN JONES MD Ot R05 COUGH 11/23/2016 QUIN JONES MD Ot Z79.899 OTHER LONGTERM (CURRENT) DRUG THERAPY 11/26/2016 QUIN JONES MD Ot I25.10 ATHSCL HEART DISEASE OF [place] CORONARY 11/26/2016 QUIN JONES MD Ot J44.9 CHRONIC OBSTRUCTIVE PULMONARY DISEASE, U 11/26/2016 QUIN JONES MD Ot R05 COUGH 11/26/2016 QUIN JONES MD Ot Z79.899 OTHER LONGTERM (CURRENT) DRUG THERAPY 12/26/2016 KAILA DO, HOLA [...] 12/26/2016 KAILA HOLA K Ot Z79.899 OTHER COST MANAGER (CURRENT) DRUG THERAPY 12/26/2016 KAILA HOLA [...] MD Ot I25.10 ATHSCL HEART DISEASE OF [place] CORONARY 03/06/2017 QUIN JONES MD Ot J44.9 CHRONIC OBSTRUCTIVE PULMONARY DISEASE, U 03/06/2017 QUIN JONES MD Ot K59.00 CONSTIPATION, UNSPECIFIED 03/06/2017 QUIN JONES MD Ot R10.30 LOWER ABDOMINAL PAIN, UNSPECIFIED 03/06/2017 QUIN JONES MD Ot Z79.899 OTHER COST MANAGER (CURRENT) DRUG THERAPY 03/06/2017 ABELARDO AMANDA MD Ot 397.0 TRICUSPID VALVE DISEASE 03/06/2017 ABELARDO AMANDA MD Ot 424.0 MITRAL VALVE DISORDER 03/06/2017 ABELARDO AMANDA MD Ot 428.0 CONGESTIVE HEART FAILURE NOS 03/06/2017 ABELARDO AMANDA MD Ot 428.0 CONGESTIVE HEART FAILURE NOS 03/07/2017 QUIN JONES MD Ot I16.0 HYPERTENSIVE URGENCY 03/07/2017 QUIN JONES MD, Ot I25.10 ATHSCL HEART DISEASE OF [place] CORONARY 03/07/2017 QUIN JONES MD Ot J44.9 CHRONIC OBSTRUCTIVE PULMONARY DISEASE, U 03/07/2017 QUIN JONSE MD Ot K59.00 CONSTIPATION, UNSPECIFIED 03/07/2017 QUIN JONES MD Ot R10.30 LOWER ABDOMINAL PAIN, UNSPECIFIED 03/07/2017 QUIN JONES MD, Ot Z79.899 OTHER LONGTERM (CURRENT) DRUG THERAPY 06/18/2017 ABELARDO AMANDA MD [...] ORTIZ Ot I25.10 ATHSCL HEART DISEASE OF [place] CORONARY 06/18/2017 STAR ORTIZ Ot I25.2 OLD [...] MD Ot I25.10 ATHSCL HEART DISEASE OF [place] CORONARY 02/04/2018 MICHAEL BURRELL MD Ot I25.2 [...] CONVULSIONS 02/04/2018 MICHAEL BURRELL MD Ot Z79.51 COST MANAGER (CURRENT) USE OF INHALED STERO 02/04/2018 MICHAEL BURRELL MD Ot Z79.52 LONGTERM (CURRENT) USE OF SYSTEMIC STER 02/04/2018 MICHAEL [...] PERSONAL HISTORY OF TRAUMATIC BRAIN INJU 02/04/2018 MICHEAL BURRELL MD Ot Z88.8 ALLERGY STATUS TO [...] MD Ot I25.10 ATHSCL HEART DISEASE OF [place] CORONARY 02/05/2018 MICHAEL BURRELL MD Ot I25.2 [...] CONVULSIONS 02/05/2018 MICHAEL BURRELL MD Ot Z79.51 LONGTERM (CURRENT) USE OF INHALED STERO 02/05/2018 MICHAEL BURRELL MD Ot Z79.52 COST MANAGER (CURRENT) USE OF SYSTEMIC STER 02/05/2018 [...] BURRELL MD Ot Z88.8 ALLERGY STATUS TO [facility] DRUG/MEDS/BIOL SUB 02/05/2018 MICHAEL BURRELL MD Ot [...] DO Ot I25.10 ATHSCL HEART DISEASE OF [place] CORONARY 02/24/2018 GAVI DEGROOT DO Ot I27.20 PULMONARY HYPERTENSION, UNSPECIFIED 02/24/2018 GAVI DEGROOT DO Ot I34.0 NONRHEUMATIC MITRAL (VALVE) INSUFFICIENC 02/24/2018 GAVI DEGROOT DO Ot I42.0 DILATED CARDIOMYOPATHY 02/24/2018 GAVI DEGROOT DO Ot I50.21 ACUTE SYSTOLIC (CONGESTIVE) HEART FAILUR 02/24/2018 GAVI DEGROOT DO Ot N18.9 CHRONIC KIDNEY DISEASE, UNSPECIFIED 02/24/2018 GAVI DEGROOT DO Ot Z79.899 OTHER LONGTERM (CURRENT) DRUG THERAPY 02/24/2018 GAVI DEGROOT DO Ot G40.909 EPILEPSY, UNSP, NOT INTRACTABLE, WITHOUT 02/24/2018 GAVI DEGROOT DO Ot G89.29 OTHER CHRONIC PAIN 02/24/2018 GAVI DEGROOT DO Ot I12.9 HYPERTENSIVE CHRONIC KIDNEY DISEASE W ST 02/24/2018 GAVI DEGROOT DO Ot I25.10 ATHSCL HEART DISEASE OF [place] CORONARY 02/24/2018 GAVI DEGROOT DO Ot I27.20 PULMONARY HYPERTENSION, UNSPECIFIED 02/24/2018 GAVI DEGROOT DO Ot I34.0 NONRHEUMATIC MITRAL (VALVE) INSUFFICIENC 02/24/2018 GAVI DEGROOT DO Ot I42.0 DILATED CARDIOMYOPATHY 02/24/2018 GAVI DEGROOT DO Ot I50.21 ACUTE SYSTOLIC (CONGESTIVE) HEART FAILUR 02/24/2018 GAVI DEGROOT DO Ot N18.9 CHRONIC KIDNEY DISEASE, UNSPECIFIED 02/24/2018 GAVI DEGROOT DO Ot Z79.899 OTHER COST MANAGER (CURRENT) DRUG THERAPY 05/15/2018 Ot A41.9 SEPSIS, UNSPECIFIED ORGANISM 05/15/2018 Ot B19.20 UNSPECIFIED VIRAL 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 05/15/2018 Ot E87.1 HYPO- OSMOLALITY AND HYPONATREMIA 05/15/2018 Ot F15.10 OTHER STIMULANT ABUSE, UNCOMPLICATED 05/15/2018 Ot F41.9 ANXIETY DISORDER, UNSPECIFIED 05/15/2018 Ot F43.10 POST- TRAUMATIC STRESS DISORDER, UNSPECIF 05/15/2018 Ot G40.909 EPILEPSY, UNSP, NOT INTRACTABLE, WITHOUT 05/15/2018 Ot I12.9 HYPERTENSIVE CHRONIC KIDNEY DISEASE W ST 05/15/2018 Ot I25.10 ATHSCL HEART DISEASE OF [place] CORONARY 05/15/2018 Ot I42.9 CARDIOMYOPATHY, UNSPECIFIED 05/15/2018 Ot I87.2 VENOUS INSUFFICIENCY (CHRONIC) (PERIPHER 05/15/2018 Ot J43.9 EMPHYSEMA, UNSPECIFIED 05/15/2018 Ot K56.600 PARTIAL INTESTINAL OBSTRUCTION, UNSPECIF 05/15/2018 Ot L03.115 CELLULITIS OF RIGHT LOWER LIMB 05/15/2018 Ot L03.116 CELLULITIS OF LEFT LOWER LIMB 05/15/2018 Ot N17.9 ACUTE KIDNEY FAILURE, UNSPECIFIED 05/15/2018 Ot N18.9 CHRONIC KIDNEY DISEASE, UNSPECIFIED 05/15/2018 Ot N39.0 URINARY TRACT INFECTION, SITE NOT SPECIF 05/15/2018 Ot R19.7 DIARRHEA, UNSPECIFIED 05/15/2018 Ot T68.XXXA HYPOTHERMIA, INITIAL ENCOUNTER 05/15/2018 Ot W93.8XXA EXPOSURE TO OTH EXCESSIVE COLD OF MAN-MA 05/15/2018 Ot Z99.81 DEPENDENCE ON SUPPLEMENTAL OXYGEN 07/21/2018 GREGORIO GONZALES, Paolo GARCIA Ot N18.9 CHRONIC KIDNEY DISEASE, UNSPECIFIED Procedures Code Description Performed By Performed On 38.93 VENOUS CATHETERIZATION NEC 02/05/2010 53.69 OTH OPEN REP OTH HERNIA OF ANTER ABD W 02/05/2010 Urology [place] 09/16/2012 General S Logan Kwan 10/28/2012 29861 ROUTINE VENIPUNCTURE 12/09/2012 11841 CMP 12/09/2012 97558 PHENOBARBITAL 12/09/2012 37122 TSH 12/09/2012 49079 CBC 12/09/2012 PODIATRY CURT WEINBERG 03/02/2013 37.22 LEFT HEART CARDIAC CATH 05/10/2013 88.53 LT HEART ANGIOCARDIOGRAM 05/10/2013 88.56 CORONAR ARTERIOGR-2 CATH 05/10/2013 68338 ECHO 2D 05/21/2013 86.04 OTHER SKIN SUBQ I D 06/20/2013 Physical Wound Care, [facility] 06/29/[address] ABDOMEN & PELVIS W/ & W/ O CONTRAST 12/10/2013 35546 OXIMETRY 12/10/2013 15718 ROUTINE VENIPUNCTURE 08/05/2014 31079 CBC 08/05/2014 2879231 GFR CALC (RESULT ONLY) 08/05/2014 81797 CMP 08/05/2014 05909 OXIMETRY 11/28/2014 J1885 TORADOL PER 15 MG, INJ KETOROLAC TROMETHAMINE 11/28/2014 02079 EAR LAVAGE 02/02/2015 65FG09E INSERTION OF INFUSION DEV INTO SUP VENA 05/15/2018 Results Test Result Range Urine drug screening [...] culture - 08/05/16 21:25 Bacterial urine culture [id number] NRG COLONY COUNT >100,000/ML NRG FTX;REPORTABLE SENSITIVITY [...] susceptibility test by minimum inhibitory concentration - NR BUN - 09/17/16 09:45 BUN 24 mg/dL 6-24 Creatinine, Serum - 09/17/16 09:45 Creatinine, Serum 1.38 mg/dL 0.57-1.00 eGFR If NonAfricn Am 43 mL/min/1.73 >59 eGFR If Africn Am 50 mL/min/1.73 >59 Influenza virus A and B antigen detection - 11/23/16 14:40 FLU RESULT NEGATIVE FOR INFLUENZA A AND B ANTIGENS BY [facility] Complete blood count (CBC) with automated [...] NRG Manual blood basophils/100 leukocytes 0 % NR Blood erythrocyte morphology finding identification NORMAL NR [...] Status Pt. Type Provider Facility Loc./Unit Complaint [id number] 09/13/2014 14:47:00 ACT Unknown [id number] 02/03/2015 04:27:10 ACT Document Registration [id number] 02/19/2018 14:28:36 02/19/2018 23:59:59 CLS Outpatient Virgie Bernal [id number] 04/29/2017 09:08:00 Document Registration [id number] 07/24/2018 13:33:00 07/24/2018 23:59:59 CLS Outpatient Paolo PERKINS MD [facility] CARD I34.0 MITRAL REGURGITATION [id number] 07/17/2018 07:52:00 07/17/2018 23:59:59 CLS Outpatient Paolo PERKINS MD [facility] LAB N18.9 [id number] 02/20/2018 22:00:00 02/24/2018 18:50:00 DIS Inpatient GAVI DEGROOT DO [facility] 4TH ELEVATED TROPONIN, ELEVATED D-DIMER,SOA [id number] 02/03/2018 22:20:00 02/04/2018 01:26:00 DIS Emergency MICHAEL BURRELL MD [facility] ER CP/SEIZURE [id number] 06/18/2017 18:03:00 06/18/2017 21:14:00 DIS Emergency STAR ORTIZ [facility] ER LT LEG SORE/BRUISING [id number] 03/06/2017 09:45:00 03/06/2017 11:46:00 DIS Emergency QUIN JONES MD [facility] ER ABD PAIN [id number] 11/23/2016 14:15:00 11/23/2016 16:00:00 DIS Emergency QUIN JONES MD [facility] ER SOA/COUGH/VOMITING [id number] 08/05/2016 20:48:00 08/05/2016 22:20:00 DIS Emergency KAILA DO HOLA Alec [facility] ER R LEG WOUND/PAINFUL URINATION/LOWER BACK PAIN [id number] 01/27/2016 20:37:00 01/28/2016 02:05:00 DIS Emergency KAILA LANGE, HOLA K [facility] ER ABD PAIN,N,V,D [id number] 01/27/2016 01:55:00 01/27/2016 05:47:00 DIS Emergency SANTHOSH LOWE MD [facility] ER L FLANK PAIN [id number] 02/02/2015 15:37:00 02/02/2015 17:07:00 DIS Emergency STAR ORTIZ [facility] ER PAIN [id number] 01/19/2015 01:46:00 01/19/2015 04:46:00 DIS Emergency SANTHOSH LOWE MD [facility] ER MERSA FLARING UP [id number] 11/27/2014 20:30:00 11/27/2014 22:29:00 DIS Emergency TONI ORTIZEN Tomas [facility] ER BACK PAIN [id number] 06/07/2014 16:31:00 06/10/2014 14:12:00 DIS Inpatient GAVI DEGROOT DO [facility] ICU INTRACTABLE L HIP PAIN, UNABLE TO CARE FOR SELF [id number] 06/05/2014 13:39:00 06/05/2014 16:45:00 DIS Emergency STAR ORTIZ [facility] ER FALL NECK PAIN AND BACK PAIN [id number] 05/23/2014 20:00:00 05/25/2014 11:35:00 DIS Inpatient JOANN GONZALES, MATTHEW Longoria [facility] ICU CHEST PAIN,COPD EXACERBATION,ELEVATED D-DIMER [id number] 04/09/2014 13:14:00 04/09/2014 16:26:00 DIS Emergency NEERAJ VILLA STUDY ASSISTANT [facility] ER ABD PAIN [id number] 04/06/2014 10:52:00 04/08/2014 11:45:00 DIS Inpatient GAVI DEGROOT DO [facility] 4TH RESPIRATORY DISTRESS, HYPOXIA,PNEUMONIA,CHEST PAIN [id number] 03/18/2014 16:36:00 03/18/2014 18:25:00 DIS Emergency NEERAJ VILLA STUDY ASSISTANT [facility] ER SOA [id number] 02/04/2014 19:05:00 02/04/2014 23:17:00 DIS Emergency HOLA BRIGHT DO [facility] ER CHEST PAIN [id number] 11/14/2013 14:21:00 11/14/2013 18:24:00 DIS Emergency NEERAJ VILLA STUDY ASSISTANT [facility] ER LOWER BACK PAIN [id number] 09/28/2013 23:45:00 09/29/2013 02:02:00 DIS Emergency SANTHOSH LOWE MD [facility] ER CHEST PAIN [id number] 09/15/2013 12:59:00 09/15/2013 14:32:00 DIS Emergency QUIN JONES MD [facility] ER COUGH [id number] 09/13/2013 15:15:00 09/14/2013 08:46:00 DIS Inpatient ABELARDO AMANDA MD [facility] ICU CHEST PAIN, ELEVATED TROPONIA [id number] 07/29/2013 14:25:00 07/29/2013 14:49:00 DIS Outpatient BRI VILLASEÑOR TRANSFER CAR OPERATOR DRIER [facility] WOUNDCARE LEG ABSCESS [id number] 06/20/2013 00:03:00 06/24/2013 16:42:00 DIS Inpatient GAVI DEGROOT DO [facility] SURGICAL MULTIPLE ABSCESSES [id number] 06/04/2013 12:49:00 06/04/2013 23:59:59 CLS Outpatient ABELARDO AMANDA MD [facility] RAD CHF [id number] 06/04/2013 10:53:00 06/04/2013 23:59:59 CLS Outpatient ABELARDO AMANDA MD [facility] CARD CHF [id number] 05/30/2013 13:54:00 05/30/2013 15:27:00 DIS Emergency CHRISSY GONZALES, SANTHOSH Castellano [facility] ER CHEST PAIN [id number] 05/10/2013 01:14:00 05/11/2013 14:24:00 DIS Inpatient NGOC CASTILLO MD [facility] ICU NSTEMI,CHEST PAIN, HYPERTENSIVE URGENCY [id number] 04/29/2013 14:28:00 04/29/2013 23:59:59 CLS Outpatient [id number] 09/10/2018 10:00:00 Paolo Vee MD [facility] CATH SEVERE MITRAL REGURGITATION BY PRIOR ECHO [id number] 05/15/2018 00:10:00 Document Registration [id number] 01/27/2016 05:53:00 Document Registration [id number] 12/01/2014 13:05:00 Document Registration [id number] 12/17/2012 04:30:00 Document Registration [id number] 08/03/2012 03:50:00 Document Registration [id number] 07/23/2012 17:10:00 Document Registration [id number] 05/25/2012 03:15:00 Document Registration [id number] 05/09/2012 19:20:00 Document Registration [id number] 03/28/2012 06:00:00 Document Registration [id number] 10/10/2011 13:00:00 Document Registration [id number] 07/16/2011 01:55:00 Document Registration [id number] 07/02/2011 06:44:00 Document Registration [id number] 04/12/2011 19:39:00 Document Registration [id number] 03/22/2011 02:40:00 Document Registration [id number] 03/19/2011 17:35:00 Document Registration [id number] 03/03/2011 20:58:00 Document Registration [id number] 01/21/2011 21:56:00 Document Registration [id number] 12/28/2010 15:45:00 Document Registration [id number] 11/04/2010 20:43:00 Document Registration [id number] 02/05/2010 04:25:00 Document Registration [id number] 09/18/2016 08:45:00 Document Registration [id number] 01/31/2015 15:03:00 01/31/2015 23:59:59 CLS Outpatient KRANTHI PRECIADO MD [id number] 11/28/2014 09:37:00 11/28/2014 23:59:59 CLS Outpatient TRACEE LANGE APRN [id number] 08/05/2014 14:32:00 08/05/2014 23:59:59 CLS Outpatient TRACEE LANGE APRN [id number] 07/04/2014 12:54:00 07/04/2014 23:59:59 CLS Outpatient GAVI DEGROOT DO [id number] 05/02/2014 15:01:00 05/02/2014 23:59:59 CLS Outpatient GAVI DEGROOT DO [id number] 12/10/2013 14:53:00 12/10/2013 23:59:59 CLS Outpatient TRACEE LANGE APRN [id number] 09/29/2013 15:37:00 09/29/2013 23:59:59 CLS Outpatient TRACEE LANGE APRN [id number] 09/18/2013 12:00:00 09/18/2013 23:59:59 CLS Outpatient ANISA STUDY ASSISTANT, TRACEE T [id number] 07/15/2013 14:04:00 07/15/2013 23:59:59 CLS Outpatient KRANTHI PRECIADO MD [id number] 05/31/2013 09:17:00 05/31/2013 23:59:59 CLS Outpatient KRANTHI PRECIADO MD [id number] 12/09/2012 17:16:00 12/09/2012 23:59:59 CLS Outpatient TRACEE LANGE APRN [id number] 10/28/2012 12:04:00 10/28/2012 23:59:59 CLS Outpatient TRACEE LANGE APRN [id number] 10/19/2012 16:04:00 10/19/2012 23:59:59 CLS Outpatient [id number] 09/16/2012 15:22:00 09/16/2012 23:59:59 CLS Outpatient [id number] 08/14/2012 10:30:00 08/14/2012 23:59:59 CLS Outpatient KRANTHI PRECIADO MD [id number] 05/21/2013 10:29:00 Document Registration [id number] 03/02/2013 15:46:00 Document Registration [id number] 05/14/2018 13:00:00 05/14/2018 23:59:59 CLS Outpatient TRACEE LANGE APRN [facility]
[~2018-08-03] VITALS: Ht 160 cm; Wt 84.8 kg
[2018-08-03] VITALS (12 sets, daily range): BP systolic 108–139; BP diastolic 55–94
[~2018-08-03] MED LIST changes: +LIDOCAINE 2% VISCOUS 15 ML UDC ONE; +LIDOCAINE 2% VISCOUS 15 ML UDC PO ONE; +MIDAZOLAM 5 MG/5 ML (VERSED) VIAL IV PRN; +MIDAZOLAM 5 MG/5 ML (VERSED) VIAL ONE; +NS IV 1000 ML 1,000 ML IV SCH; +NS IV 1000 ML 1,000 ML ONE; +fentaNYL INJECTION 100 MCG/2 ML AMP IV PRN; +fentaNYL INJECTION 100 MCG/2 ML AMP ONE
--- NOTE | 2018-08-03 12:11 | Cardiac Procedure Note-CS/ASA ---
Pre-Procedure Note Pre-Op Procedure Note H&P Reviewed The H&P was reviewed, patient examined and no changes noted. Date H&P Reviewed: Aug 03, 2018 Time H&P Reviewed: 09:15 Conscious Sedation Pre-Proced Time 09:15 ASA Score 3 For ASA 3 and 4: Consider anesthesia and medical clearance. Also, for patients with a history of failed moderate sedation consider anesthesia. Airway Lungs Heart ASA score ASA 1: a normal healthy patient ASA 2: a patient with a mild systemic disease (mid diabetes, controlled hypertension, obesity ASA 3: a patient with a severe systemic disease that limits activity (angina , COPD, prior Myocardial infarction) ASA 4: a patient with an incapacitating disease that is a constant threat to life (CHF, renal failure) ASA 5: a moribund patient not expected to survive 24 hrs. (ruptured aneurysm) ASA 6: a declared brain patient whose organs are being harvested. For emergent operations, add the letter E after the classification Mallampati Classification Grade 1 Sedation Plan Analgesia, Amnesia, Plan communicated to team members, Discussed options with patient/fam, Discussed risks with patient/fam The patient is an appropriate candidate to undergo the planned procedure, sedation, and anesthesia. The patient immediately re-assessed prior to indication. Paolo PERKINS MD Aug 03, 2018 12:11 pm
== END | disposition home or self-care (01) ==
LOC: CATH 07-30 08:07
PROVIDERS: ATTEND Internal Medicine Interventional Cardiology
DX: I08.1 Rheumatic disorders of both mitral and tricuspid valves (principal); Z11.2 Encounter for screening for other bacterial diseases
CPT/HCPCS: 87081; 93005

== ENCOUNTER → 2018-08-20 | Day surgery (SDC) | payer MEDICAID ==
[~2018-08-20] VITALS: Ht 160 cm; Wt 84.8 kg
[2018-08-20] VITALS (9 sets, daily range): BP systolic 148–172; BP diastolic 82–104
[~2018-08-20] MED LIST changes: +KETAMINE HCL 100 MG/ML 5 ML VIAL ONE; -LIDOCAINE 2% VISCOUS 15 ML UDC PO ONE; -MIDAZOLAM 5 MG/5 ML (VERSED) VIAL IV PRN; +MIDAZOLAM 5 MG/5 ML (VERSED) VIAL IVP ONE; -fentaNYL INJECTION 100 MCG/2 ML AMP IV PRN; -fentaNYL INJECTION 100 MCG/2 ML AMP ONE; +proPOfol 200 MG/20 ML (DIPRIVAN) VIAL IV ONE
--- OUTSIDE RECORDS SUMMARY | 2018-08-20 10:51 | XMS REPORT ---
Author Author TRACEE LANGE Organization [facility] Address [address] [place] [address] Care Team Providers Care Senior Associate Name Role Phone TRACEE LANGE Unavailable PROBLEMS Type Condition ICD9-CM Code [id number] Code Onset Dates Condition Status SNOMED Code Problem Thoracic neuritis M54.14 Active 21460543 Problem Intracranial injury, without loss of consciousness, subsequent encounter S06.9X0D Active 186661970 Problem Ventricular arrhythmia I49.9 Active 90575015 Problem Epileptic seizure, generalized G40.309 Active 25861441 Problem Hypertension, benign I10 Active 56549880 Problem Lumbar neuritis M54.16 Active 435402459 Problem GERD (gastroesophageal reflux disease) K21.9 Active 680380502 Problem Cardiomyopathy I42.9 Active 59893655 ALLERGIES No Information ENCOUNTERS Encounter Location Date Diagnosis [facility] [id number] [place] [address] 87479- 7234 Aug, [facility] [address] 54800- 7867 Aug, [facility] [id number] [place] [address] 79897- 0427 Jul, [facility] [id number] [place] [address] 02674- 4681 Jul, Hypertension, benign I10 [facility] [id number] [place] [address] 30965- 4090 Jul, [facility] [address] 61411- 5271 Jul, Thoracic neuritis M54.14 ; Pain of left leg M79.605 and Pain in right leg M79.604 [facility] [address] 68041- 6805 Jun, Seizures R56.9 [facility] [id number] [place] [address] 58211- 8818 May, [facility] [id number] [place] [address] 67052- 0500 May, [facility] [id number] [place] [address] 97965- 2848 May, [facility] [address] 00723- 9552 May, Seizures R56.9 [facility] [address] 66815- 3905 May, [facility] [id number] [place] [address] 13879- 4066 May, Delirium R41.0 [facility] [address] 31482- 4664 Apr, [facility] [id number] [place] [address] 19672- 8384 February, Ventricular arrhythmia I49.9 [facility] [id number] [place] [address] 79576- 4056 February, [facility] [id number] [place] [address] 36941- 6851 Dec, Thoracic neuritis M54.14 ; Lumbar neuritis M54.16 and Epileptic seizure, generalized G40.309 [facility] [id number] [place] [address] 12322- 0241 Sep, Epileptic seizure, generalized G40.309 and Lumbar neuritis M54.16 [facility] [id number] [place] [address] 34978- 3722 Aug, Thoracic neuritis M54.14 and Lumbar neuritis M54.16 [facility] [id number] [place] [address] 27344- 5819 Jun, [place] [id number] [place] [address] 66310- 6307 Jun, Abscess of leg, left L02.416 [place] [id number] [place] [address] 40079- 0347 May, Lumbar neuritis M54.16 ; Thoracic neuritis M54.14 ; Intracranial injury, without loss of consciousness, subsequent encounter S06.9X0D and Cardiomyopathy I42.9 [place] [address] 00482- 4345 Apr, Lumbar neuritis M54.[address] 21414- 5619 Apr, [address] 82616- 6350 Apr, Elevated liver enzymes R74.8 and Renal insufficiency N28.[address] 20832- 6030 Apr, Lumbar neuritis M54.16 ; Thoracic neuritis M54.14 ; Hypertension, benign I10 ; Cardiomyopathy I42.9 and Epileptic seizure, generalized G40.309 [place] [id number] [place] [address] 21893- 8889 Mar, [place] [id number] [place] [address] 31710- 5982 February, [address] 78634- 5459 February, Lumbar neuritis M54.16 ; Thoracic neuritis M54.14 ; Hypertension, benign I10 ; Cardiomyopathy I42.9 and Epileptic seizure, generalized G40.309 [place] [id number] [place] [address] 29875- 9501 Dec, [address] 54414- 9743 Sep, Epigastric mass R19.06 [facility] [id number] [place] [address] 84101- 0620 Sep, Epigastric mass R19.06 [facility] [id number] [place] [address] 58803- 4368 Sep, [place] [address] 59048- 2770 Sep, Epigastric mass R19.06 [facility] [id number] [place] [address] 07523- 7559 Sep, Epigastric mass R19.06 and Lung mass R91.8 [facility] [place] [address] 20681 -9560 Jul, Shortness of breath R06.02 ; Dysuria R30.0 and Acute bronchitis, unspecified organism J20.9 [place] [address] 20717- 4507 Jul, [place] [address] 39466- 8044 Jun, Seizures R56.9 ; Thoracic neuritis M54.14 ; Lumbar neuritis M54.16 and GERD (gastroesophageal reflux disease) K21.9 [facility] [place] [id number] [place] [address] 06485 -6861 Jan, [place] [address] 11419- 0735 Sep, [place] [id number] [place] [address] 68583- 8513 09 Sep, 2015 Intracranial injury, without loss of consciousness, subsequent encounter S06.9X0D ; Cardiomyopathy I42.9 ; GERD (gastroesophageal reflux disease) K21.9 ; Hypertension, benign I10 ; Thoracic neuritis M54.14 and Lumbar neuritis M54.16 [place] [id number] [place] [address] 26382- 1729 Mar, [facility] [id number] [place] [address] 80963- 9722 Mar, Coronary atherosclerosis of unspecified type of vessel, qagan tayagungin or graft 414.00 ; Unspecified essential hypertension 401.9 ; Thoracic or lumbosacral neuritis or radiculitis, unspecified 724.4 and Other convulsions 780.39 [facility] [id number] [place] [address] 66603- 5472 Jan, [facility] [id number] [place] [address] 26334- 7937 Jan, [facility] [id number] [place] [address] 13393- 3276 Nov, [facility] [id number] [place] [address] 31122- 5671 Nov, [facility] [id number] [place] [address] 50723- 5788 Nov, [facility] [id number] [place] [address] 18708- 9114 Nov, [facility] [id number] [place] [address] 91781- 8910 Nov, [facility] [id number] [place] [address] 17254- 6039 Nov, [facility] [id number] [place] [address] 86231- 3966 Nov, [facility] [id number] [place] [address] 84928- 8511 Nov, [facility] [id number] [place] [address] 794236- 7867 Nov, [facility] [id number] [place] [address] 977581- 4516 Nov, [facility] [id number] [place] [address] 68073- 9348 Sep, [facility] [place] [facility] [address] [id number] [place] [address]- 1839 Sep, [facility] [place] [facility] [address] [id number] [place] [address]- 1014 Aug, [facility] [place] [facility] [address] [id number] [place] 9381 Aug, [facility] [place] [facility] [address] [id number] [place] [address]- 2698 Aug, [facility] [place] [facility] [address] [id number] [place] [address]- 2640 Aug, [facility] [place] [facility] [address] [id number] [place] [address]- 3661 Jul, [facility] [place] [facility] [address] [id number] [place] [address]- 4049 Jul, [facility] [place] [facility] [address] [id number] [place] [address]- 9054 Jul, [facility] [place] [facility] [address] [id number] [place] [address]- 9607 Jul, [facility] [place] [facility] [address] [id number] [place] [address]- 1491 Jun, [facility] [place] [facility] [address] [id number], [place] [address]- 5968 Jun, [facility] [place] [facility] [address] [id number], [place] [address]- 0885 Jun, [facility] [place] [facility] [address] [id number] [place] [address]- 5183 May, [facility] [place] [facility] [address] [id number] [place] [address]- 3996 May, [facility] [place] [facility] [address] [id number] [place] [address]- 6507 May, [facility] [place] [facility] [address] [id number] [place] [address]- 5195 May, [facility] [place] [facility] [address] [id number] [place] [address]- 1505 May, [facility] [place] [facility] [address] [id number] [place] [address]- 4896 May, [facility] [place] [facility] [address] [id number] [place] [address]- 3177 May, [facility] [place] [facility] [address] [id number] [place] [address]- 8370 May, [facility] [place] [facility] [address] [id number] [place] [address]- 0765 February, [facility] [place] [facility] [address] [id number] [place] [address]- 0046 February, [facility] [place] [facility] [address] [id number] [place] [address]- 4296 Jan, [facility] [place] [facility] [address] [id number] [place] [address]- 5882 Jan, [facility] [place] [facility] [address] [id number] [place] [address]- 6031 Jan, [facility] [place] [facility] [address] [facility] [id number] [place] [address]- 4208 Jan, [facility] [place] [facility] [address] [id number] [place] [address]- 1606 Nov, [facility] [place] [facility] [address] [id number] [place] [address]- 6408 Nov, [facility] [place] [facility] [address] [id number] [place] [address]- 8883 Nov, [facility] [place] [facility] [address] [id number] [place] [address]- 8846 Nov, [facility] [place] [facility] [address] [id number] [place] 6944 Sep, [facility] [address] [id number] [place] [address]- 8917 Sep, [facility] [address] [id number] [place] [address]- 4708 Sep, [facility] [address] [id number] [place] [address]- 3010 Sep, [facility] [address] [id number] [place] [address]- 8258 Sep, [facility] [address] [id number] [place] [address]- 3534 Sep, [facility] [address] [id number] [place] [address]- 7728 Jul, [facility] [address] [id number] [place] [address]- 8154 Jul, [facility] [address] [id number] [place] [address]- 8641 Jun, [facility] [address] [id number] [place] [address]- 4510 Jun, [facility] [address] [id number] [place] [address]- 6486 Jun, [facility] [address] [id number] [place] [address]- 7244 May, [address] [id number] May [facility] [address] [id number] [place] [address]- 2129 May, [facility] [address] [id number] [place] [address]- 3171 May, [facility] [address] [id number] [place] [address]- 6401 May, [facility] [address] [id number] [place] [address]- 0865 May, [facility] [place] [facility] [address] [id number] [place] [address]- 7335 May, [facility] [place] [facility] [address] [id number] [place] [address]- 4666 Apr, [facility] [place] [facility] [address] [id number] [place] [address]- 1456 Apr, [facility] [place] [facility] [address] [id number] [place] [address]- 9266 Apr, [facility] [place] [facility] [address] [id number] [place] [address]- 4789 Apr, [facility] [place] [facility] [address] [id number] [place] [address]- 1350 Mar, [facility] [place] [facility] [address] [id number] [place] [address]- 8521 February, [facility] [place] [facility] [address] [id number] [place] [address]- 9343 Jan, [facility] [place] [facility] [address] [id number] [place] [address]- 9457 Dec, [facility] [place] [facility] [address] [id number] [place] [address]- 4137 Dec, [facility] [place] [facility] [address] [id number] [place] [address]- 6779 Dec, [facility] [place] [facility] [address] [id number] [place] [address]- 3470 Nov, [facility] [place] [facility] [address] [id number] [place] [address]- 2545 Nov, [facility] [place] [facility] [address] [id number] [place] [address]- 2546 Nov, [facility] [place] [facility] [address] [id number] [place] [address]- 2546 Oct, [facility] [place] [facility] [address] [id number] [place] [address]- 8206 Oct, [facility] [address] [id number] [place] [address]- 5561 Sep, [facility] [place] [facility] [address] [id number] [place] [address]- 2026 Sep, [facility] [address] [id number] [place] [address]- 0557 Sep, [facility] [place] [facility] [address] [id number] [place] [address]- 4682 Sep, [facility] [address] [id number] [place] [address]- 5140 Sep, [facility] [place] [facility] [address] [id number] [place] [address]- 1435 Sep, [facility] [place] [facility] [address] [id number] [place] [address]- 5876 Aug, [facility] [address] [id number] [place] [address]- 5888 Aug, [facility] [place] [facility] [address] [id number] [place] [address]- 3836 Aug, [facility] [address] [id number] [place] [address]- 3013 Aug, [facility] [place] [facility] [address] [id number] [place] [address]- 4115 Aug, [facility] [place] [facility] [address] [id number] [place] [address]- 5089 Aug, [facility] [place] [facility] [address] [id number] [place] [address]- 5360 Aug, [facility] [place] [facility] [address] [id number] [place] [address]- 6503 Aug, [facility] [place] [facility] [address] [id number] [place] [address]- 0509 Aug, [facility] [place] [facility] [address] [id number] [place] [address]- 7602 Aug, [facility] [place] [facility] [address] [id number] [place] [address]- 8572 Jul, [facility] [place] [facility] [address] [id number] [place] [address]- 7461 Jul, [facility] [place] [facility] [address] [id number] [place] [address]- 1415 Jul, [facility] [place] [facility] [address] [id number] [place] [address]- 9411 Jul, [facility] [place] [facility] [address] [id number] [place] [address]- 4377 Jul, [facility] [place] [facility] [address] [id number] [place] [address]- 0311 Jul, [facility] [place] [facility] [address] [id number], [place] [address]- 5334 Jul, [facility] [place] [facility] [address] [id number], [place] [address]- 0306 Jul, [facility] [place] [facility] [address] [facility] [id number], [place] [address]- 0078 Jul, [facility] [place] [facility] [address] [id number], [place] [address]- 5939 Jul, [facility] [place] [facility] [address] [id number], [place] [address]- 4228 Jul, [facility] [place] [facility] [address] [id number], [place] [address]- 5029 Jul, [facility] [place] [facility] [address] [id number], [place] [address]- 1212 Jul, [facility] [place] [facility] [address] [facility] [id number][place]- 8233 Jul, [facility] [place] [facility] [address] [id number], [place] [address]- 8208 Jul, [facility] [address] [id number] [place] [address]- 2984 28 Jun, 2012 [facility] [place] [facility] [address] [id number] [place] [address]- 6266 24 Jun, 2012 [facility] [place] [facility] [address] [facility] [id number] [place] [address]- 7006 Jun, [facility] [place] [facility] [address] [id number] [place] [address]- 7725 May, [facility] [place] [facility] [address] [id number] [place] [address]- 5885 May, [facility] [place] [facility] [address] [facility] [id number] [place] [address]- 0016 Mar, [facility] [place] [facility] [id number] [place] [address]- 9030 Mar, [facility] [place] [facility] [address] [facility] [id number] [place] [address]- 3160 February, [facility] [place] [facility] [id number] [place] [address]- 1553 February, [facility] [place] [facility] [id number] [place] [address]- 6065 Nov, [facility] [place] [facility] [id number] [place] [address]- 7151 Oct, [facility] [place] [facility] [address] [facility] [id number], [place] [address]- 1337 Oct, [facility] [place] [facility] [id number] [place] [address]- 5434 Oct, [facility] [place] [facility] [address] [facility] [id number] [place] [address]- 4736 Aug, [facility] [place] [facility] [address] [id number], [place] [address]- 9906 Jul, [facility] [place] [facility] [id number], [place] [address]- 2026 Sep, [facility] [id number], [place] [address]- 5519 Aug, [facility] [address], [place] [address]- 9063 Jul, [facility] [id number], [place] [address]- 1009 Apr, [facility] [id number], [place] [address]- 0178 February, [facility] [id number], [place] [address]- 3572 Sep, [facility] [id number], [place] [address]- 4943 Sep, [facility] [address], [place] [address]- 0444 Sep, [facility] [address], [place] [address]- 5415 Apr, [facility] [id number], [place] [address]- 8124 Mar, [facility] [address], [place] [address]- 8449 February, [facility] [address], [place] [address]- 6354 Jan, [facility] [id number] [address]- 6139 Jul, IMMUNIZATIONS No Known Immunizations SOCIAL HISTORY Never Assessed REASON FOR VISIT RX Refills PLAN OF CARE VITAL SIGNS MEDICATIONS Unknown Medications RESULTS No Results PROCEDURES No Known procedures INSTRUCTIONS MEDICATIONS ADMINISTERED No Known Medications MEDICAL (GENERAL) HISTORY Type Description Date Medical History Post-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
--- OUTSIDE RECORDS SUMMARY | 2018-08-20 10:51 | XMS REPORT | Clinical Summary ---
Author Author [facility] Organization [facility] Address Unknown Phone Unavailable Care Team Providers Care Upscale Security Officer Name Role Phone Sander Bates Unavailable Anita [...] in the Health Information Management department at [phone] for further assistance in locating additional records.[facility] Allergies Active Allergy Reactions Severity [...] Taken Blood Pressure 110/80 11/11/2014 1:07 PM [employer] Pulse 72 11/11/2014 1:07 PM [employer] Temperature 36.5 C (97.7 F) 11/11/2014 1:07 PM [employer] Respiratory Rate 16 11/11/2014 1:07 PM [employer] Oxygen Saturation 94% 09/21/2014 7:45 AM [employer] Inhaled Oxygen - - Concentration Weight 82.1 kg (181 lb) 11/11/2014 1:07 PM [employer] Height 160 cm (5' 3") 11/11/2014 1:07 PM [employer] Body Mass Index 32.06 11/11/2014 1:07 PM [employer] Plan of Treatment Health Maintenance Due Date [...]
--- OUTSIDE RECORDS SUMMARY | 2018-08-20 10:52 | XMS REPORT ---
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9 Active 32736896 ALLERGIES No Information ENCOUNTERS Encounter Location Date Diagnosis [place] [address] [address]- [address] Aug, [place] [address] 82205- 6184 Jul, [facility] [address] 45951- 7271 Jul, Hypertension, benign I10 [facility] [address] [place] [id number] [place] [address] 84188- 3303 Jul, [facility] [address] 14815- 2514 Jul, Thoracic neuritis M54.14 ; Pain of left leg M79.605 and Pain in right leg M79.604 [facility] [address] 90873- 9005 Jun, Seizures R56.9 [facility] [address] [place] [address]- 2225 May, [facility] [address] [place] [id number] [place] [address] 16363- 9236 May, [facility] [address] [place] [id number] [place] [address] 55457- 9137 May, [facility] [address] [place] [id number] [place] [address] 35073- 5075 May, Seizures R56.9 [facility] [address] 72603- 8093 May, [facility] [address] 91751- 1232 May, Delirium R41.0 [facility] [address] [place] [id number] [place] [address] 11157- 8338 Apr, [facility] [address] [address]34- 4999 February, Ventricular arrhythmia I49.9 [facility] [address] [place] [id number] [place] [address] 78770- 9275 February, [facility] [address] [place] [id number] [place] [address] 03646- 3982 Dec, Thoracic neuritis M54.14 ; Lumbar neuritis M54.16 and Epileptic seizure, generalized G40.309 [facility] [address] [place] [id number] [place] [address] 84180- 2773 Sep, Epileptic seizure, generalized G40.309 and Lumbar neuritis M54.16 [facility] [address] [place] [id number] [place] [address] 61966- 8710 Aug, Thoracic neuritis M54.14 and Lumbar neuritis M54.16 [facility] [address] [place] [id number] [place] [address] 86368- 1984 Jun, [facility] [address] [place] [id number] [place] [address] 81390- 2738 Jun, Abscess of leg, left L02.416 [place] [address] [place] [id number] [place] [address] 64691- 3515 May, Lumbar neuritis M54.16 ; Thoracic neuritis M54.14 ; Intracranial injury, without loss of consciousness, subsequent encounter S06.9X0D and Cardiomyopathy I42.9 [place] [address] 10099- 7701 Apr, Lumbar neuritis M54.16 [place] [address] 13108- 3727 Apr, [place] [address] 91010- 6515 Apr, Elevated liver enzymes R74.8 and Renal insufficiency N28.9 [place] [address] 42015- 7059 Apr, Lumbar neuritis M54.16 ; Thoracic neuritis M54.14 ; Hypertension, benign I10 ; Cardiomyopathy I42.9 and Epileptic seizure, generalized G40.309 [place] [address] 57655- 1629 Mar, [place] [address] 20299- 4356 February, [place] [address] [place] [id number] [place] [address] 30612- 5397 February, Lumbar neuritis M54.16 ; Thoracic neuritis M54.14 ; Hypertension, benign I10 ; Cardiomyopathy I42.9 and Epileptic seizure, generalized G40.309 [place] [address] 39219- 0196 Dec, [place] [address] 91952- 2802 Sep, Epigastric mass R19.06 [place] [address] 43877- 6199 Sep, Epigastric mass R19.06 [place] [address] [place] [id number] [place] [address] 98668- 6040 Sep, [place] [address] [place] [id number] [place] [address] 16316- 2308 Sep, Epigastric mass R19.06 [facility] [address] [place] [id number] [place] [address] 31565- 6418 Sep, Epigastric mass R19.06 and Lung mass R91.8 [facility] [address] 53107 -4628 Jul, Shortness of breath R06.02 ; Dysuria R30.0 and Acute bronchitis, unspecified organism J20.9 [place] [address] 61255- 4607 Jul, [place] [address] 68661- 7112 Jun, Seizures R56.9 ; Thoracic neuritis M54.14 ; Lumbar neuritis M54.16 and GERD (gastroesophageal reflux disease) K21.9 [facility] [place] [address] [place] [id number] [place] [address] 77675 -6848 Jan, [place] [address] [place] [id number] [place] [address] 67620- 8885 Sep, [place] [address] 53963- 3272 Sep, Intracranial injury, without loss of consciousness, subsequent encounter S06.9X0D ; Cardiomyopathy I42.9 ; GERD (gastroesophageal reflux disease) K21.9 ; Hypertension, benign I10 ; Thoracic neuritis M54.14 and Lumbar neuritis M54.16 [place] [address] [place] [id number] [place] [address] 92685- 8495 Mar, [place] [address] 77644- 5723 Mar, Coronary atherosclerosis of unspecified type of vessel, united [place] or graft 414.00 ; Unspecified essential hypertension 401.9 ; Thoracic or lumbosacral neuritis or radiculitis, unspecified 724.4 and Other convulsions 780.39 [facility] [address] [place] [id number] [place] [address] 56840- 3397 14 Jan, 2015 [facility] [address] [place] [id number] [place] [address] 24909- 4875 Jan, [facility] [address] [place] [id number] [place] [address] 94681- 1316 Nov, [facility] [address] [place] [id number] [place] [address] 354607- 9448 Nov, [facility] [address] [place] [id number] [place] [address] 84690- 7716 Nov, [facility] [address] [place] [id number] [place] [address] 62760- 6665 Nov, [facility] [address] [place] [id number] [place] [address] 63964- 6417 Nov, [facility] [address] [place] [id number] [place] [address] 41465- 3027 Nov, [facility] [address] [place] [id number] [place] [address] 03965- 3775 Nov, [facility] [address] [place] [id number] [place] [address] 22708- 8663 Nov, [facility] [id number] [place] [address] 367554- 6695 Nov, [facility] [address] [place] [id number] [place] [address] 369218- 1664 Nov, [facility] [id number] [place] [address] 489250- 2100 Sep, [facility] [address] [place] [id number] [place] [address] 51078- 5725 Sep, [facility] [place] [facility] [address] [id number] [place] [address]- 6061 Aug, [facility] [place] [facility] [address] [id number] [place] [address]- 0123 Aug, [facility] [place] [facility] [address] [id number] [place] [address]- 4179 Aug, [facility] [place] [facility] [address] [id number] [place] [address]- 7166 Aug, [facility] [place] [facility] [address] [id number] [place] [address]- 1569 Jul, [facility] [place] [facility] [address] [id number] [place] [address]- 8825 Jul, [facility] [place] [facility] [address] [id number] [place] [address]- 9156 Jul, [facility] [place] [facility] [address] [id number] [place] [address]- 9061 Jul, [facility] [place] [facility] [address] [id number] [place] [address]- 4180 Jun, [facility] [place] [facility] [address] [id number] [place] [address]- 2243 Jun, [facility] [place] [facility] [address] [id number], [place] [address]- 4760 Jun, [facility] [place] [facility] [address] [id number], [place] [address]- 5712 May, [facility] [place] [facility] [address] [id number] [place] [address]- 7233 May, [facility] [place] [facility] [address] [id number] [place] [address]- 0649 May, [facility] [place] [facility] [address] [id number] [place] [address]- 4049 May, [facility] [place] [facility] [address] [id number] [place] [address]- 2152 May, [facility] [place] [facility] [address] [id number] [place] [address]- 3202 May, [facility] [place] [facility] [address] [id number] [place] [address]- 5674 May, [facility] [place] [facility] [address] [id number] [place] [address]- 7920 May, [facility] [place] [facility] [address] [id number] [place] [address]- 5223 February, [facility] [place] [facility] [address] [id number] [place] [address]- 8816 February, [facility] [place] [facility] [address] [id number] [place] [address]- 0332 Jan, [facility] [place] [facility] [address] [id number] [place] [address]- 7564 Jan, [facility] [place] [facility] [address] [id number] [place] [address]- 1456 Jan, [facility] [place] [facility] [address] [id number] [place] [address]- 7696 Jan, [facility] [place] [facility] [address] [id number] [place] [address]- 5965 Nov, [facility] [place] [facility] [address] [id number] [place] [address]- 7269 Nov, [facility] [place] [facility] [address] [id number] [place] [address]- 1377 Nov, [facility] [place] [facility] [address] [id number] [place] 9058 Nov, [facility] [place] [facility] [address] [id number] [place]- 5361 Sep, [facility] [place] [facility] [address] [id number] [place] 5982 Sep, [facility] [address] [id number] [place] [address]- 4717 Sep, [facility] [address] [id number] [place] [address]- 9506 Sep, [facility] [address] [id number] [place] [address]- 4597 Sep, [facility] [address] [id number] [place] [address]- 2600 Sep, [facility] [address] [id number] [place] [address]- 0654 Jul, [facility] [address] [id number] [place] [address]- 7257 Jul, [facility] [address] [id number] [place] [address]- 3299 Jun, [facility] [address] [id number] [place] [address]- 3624 Jun, [facility] [address] [id number] [place] [address]- 8688 Jun, [facility] [address] [id number] [place] [address]- 2329 May, [facility] [address] [place] [id number] May [facility] [address] [id number] [place] [address]- 9065 May, [facility] [address] [id number] [place] [address]- 5011 May, [facility] [place] [facility] [address] [id number] [place] [address]- 2611 May, [facility] [place] [facility] [address] [id number] [place] [address]- 0086 May, [facility] [place] [facility] [address] [id number] [place] [address]- 6104 May, [facility] [address] [id number] [place] [address]- 8343 Apr, [facility] [place] [facility] [address] [id number] [place] [address]- 4774 Apr, [facility] [place] [facility] [address] [id number] [place] [address]- 4000 Apr, [facility] [place] [facility] [address] [id number] [place] [address]- 1631 Apr, [facility] [place] [facility] [address] [id number] [place] [address]- 6567 Mar, [facility] [place] [facility] [address] [id number] [place] [address]- 9913 February, [facility] [place] [facility] [address] [id number] [place] [address]- 2523 Jan, [facility] [place] [facility] [address] [id number] [place] [address]- 4713 Dec, [facility] [place] [facility] [address] [id number] [place] [address]- 1899 Dec, [facility] [place] [facility] [address] [id number] [place] [address]- 2058 Dec, [facility] [place] [facility] [address] [id number] [place] [address]- 1253 Nov, [facility] [place] [facility] [address] [id number] [place] [address]- 7028 Nov, [facility] [place] [facility] [address] [id number] [place] [address]- 9203 Nov, [facility] [place] [facility] [address] [id number] [place] [address]- 5556 Oct, [facility] [place] [facility] [address] [id number] [place] [address]- 2544 Oct, [facility] [place] [facility] [address] [id number] [place] [address]- 0519 Sep, [facility] [place] [facility] [address] [id number] [place] [address]- 3229 Sep, [facility] [place] [facility] [address] [id number] [place] 1306 Sep, [facility] [address] [id number] [place] [address]- 6246 Sep, [facility] [place] [facility] [address] [id number] [place] [address]- 8706 Sep, [facility] [place] [facility] [address] [id number] [place] [address]- 8171 Sep, [facility] [place] [facility] [address] [id number] [place] [address]- 1595 Aug, [facility] [place] [facility] [address] [id number] [place] [address]- 7412 Aug, [facility] [place] [facility] [address] [id number] [place] [address]- 7903 Aug, [facility] [place] [facility] [address] [id number] [place] [address]- 0596 Aug, [facility] [place] [facility] [address] [id number] [place] [address]- 4200 Aug, [facility] [place] [facility] [address] [id number] [place] [address]- 5199 Aug, [facility] [place] [facility] [address] [id number] [place] [address]- 7237 Aug, [facility] [place] [facility] [address] [id number] [place] [address]- 8317 Aug, [facility] [place] [facility] [address] [id number] [place] [address]- 1416 Aug, [facility] [place] [facility] [address] [id number] [place] [address]- 0348 Aug, [facility] [place] [facility] [address] [id number] [place] [address]- 3663 Jul, [facility] [place] [facility] [address] [id number] [place] [address]- 0109 Jul, [facility] [place] [facility] [address] [id number] [place] [address]- 6802 Jul, [facility] [place] [facility] [address] [id number] [place] [address]- 7887 Jul, [facility] [place] [facility] [address] [id number] [place] [address]- 7456 Jul, [facility] [place] [facility] [address] [id number] [place] [address]- 9426 Jul, [facility] [place] [facility] [address] [id number] [place] [address]- 3325 Jul, [facility] [place] [facility] [address] [id number], [place] [address]- 5238 Jul, [facility] [place] [facility] [address] [id number], [place] [address]- 4691 Jul, [facility] [place] [facility] [address] [id number], [place] [address]- 6500 Jul, [facility] [place] [facility] [address] [id number], [place] [address]- 0412 Jul, [facility] [place] [facility] [address] [id number], [place] [address]- 6161 Jul, [facility] [place] [facility] [address] [id number], [place] [address]- 8705 Jul, [facility] [place] [facility] [address] [id number][place] 3093 Jul, [facility] [place] [facility] [address] [facility] [id number], [place] [address]- 8552 Jul, [facility] [place] [facility] [address] [id number], [place] [address]- 9049 28 Jun, 2012 [facility] [address] [id number] [place] [address]- 4362 24 Jun, 2012 [facility] [place] [facility] [address] [id number] [place] [address]- 2116 Jun, [facility] [place] [facility] [address] [id number] [place] [address]- 3936 May, [facility] [place] [facility] [address] [id number] [place] [address]- 9024 May, [facility] [place] [facility] [address] [id number] [place] [address]- 3384 Mar, [facility] [place] [facility] [address] [id number] [place] [address]- 7166 Mar, [facility] [address] [place] [address]- 5255 February, [facility] [place] [facility] [address] [id number] [place] [address]- 4656 February, [facility] [address] [id number] [place] [address]- 3846 Nov, [facility] [place] [facility] [address] [place] [id number] [place] [address]- 4366 Oct, [facility] [place] [facility] [address] [id number] [place] [address]- 0656 Oct, [facility] [place] [facility] [address] [id number] [place] [address]- 4150 Oct, [facility] [place] [facility] [address] [id number] [place] [address]- 9731 Aug, [facility] [place] [facility] [address] [id number] [place] [address]- 7216 Jul, [facility] [place] [facility] [address] [address] [id number] [place] [address]- 4916 Sep, [facility] [place] [facility] [address] [address]- 5158 Aug, [facility] [address], [place] [address]- 0016 Jul, [facility] [address], [place] [address]- 0834 Apr, [facility] [id number] [place] [address] 31165- 2269 February, [facility] [address], [place] [address]- 3294 Sep, [facility] [id number] [place] [address] 29082- 6643 Sep, [facility] [id number] [place] [address] 26433- 5315 Sep, [facility] [address] [id number] [place] [address] 37546- 5549 Apr, [facility] [address], [place] [address]- 1186 Mar, [facility] [address], [place] [address]- 5941 February, [facility] [address], [place] [address]- 7817 Jan, [facility] [address], [place] [address]- 6780 Jul, IMMUNIZATIONS No Known Immunizations SOCIAL HISTORY Never Assessed REASON FOR VISIT med correction PLAN OF CARE VITAL SIGNS MEDICATIONS Unknown Medications RESULTS No Results PROCEDURES No Known procedures INSTRUCTIONS MEDICATIONS ADMINISTERED No Known Medications MEDICAL (GENERAL) HISTORY Type Description Date Medical History 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
--- OUTSIDE RECORDS SUMMARY | 2018-08-20 11:11 | XMS REPORT | Continuity of Care Document ---
Demographics Preferred Language Unknown Marital Status Unknown Judaism Affiliation Unknown Race Unknown Ethnic Group Unknown Author Author [facility] Address Unknown Phone Unavailable Allergies Active Description Code Type Severity Reaction Onset Reported/Identified Relationship to Patient Clinical Status Yes nitrous oxide [id number] Drug Allergy Unknown N/A 06/08/2007 Yes AILEEN Inhibitors [id number] Drug Allergy Unknown N/A 05/25/2014 Medications There [...] Respiratory Infections Of Unspecified Site 08/20/2010 KRANTHI PREICADO MD 491.21 Obstructive Chronic Bronchitis With (acute) [...] OZZY GONZALES, KRANTHI 799.02 HYPOXEMIA 03/19/2011 KRANTHI PRECIDAO MD 780.60 Fever Unspecified 03/19/2011 KRANTHI PRECIADO [...] APRN 790.29 PREDIABETES (IMPAIRED GLUCOSE TOLERANCE) 03/25/2011 TRCAEE LANGE APRN 790.29 PREDIABETES (IMPAIRED GLUCOSE TOLERANCE) [...] NOS 08/04/2012 Ot 414.01 CORONARY ATHEROSCLEROSIS OF [place] CORON 08/04/2012 Ot 496 CHR AIRWAY OBSTRUCT [...] DO 788.30 URINARY INCONTINENCE UNSPECIFIED 09/16/2012 ANISA STUDIO ASSISTANT, TRACEE T 788.30 URINARY INCONTINENCE UNSPECIFIED [...] NOS 12/20/2012 Ot 414.01 CORONARY ATHEROSCLEROSIS OF [place] CORON 12/20/2012 Ot 486 PNEUMONIA, ORGANISM NOS [...] DEGROOT DO, GAVI K 276.7 HYPERKALEMIA 12/21/2012 TARCEE LANGE APRN 276.7 HYPERKALEMIA 12/21/2012 TRACEE LANGE [...] CASTILLO MD Ot 414.01 CORONARY ATHEROSCLEROSIS OF [place] CORON 05/11/2013 NGOC CASTILLO MD Ot 425.4 [...] TRACEE LANGE APRN 425.4 CARDIOMYOPHATHY 05/21/2013 ANISA STUDIO ASSISTANT, TRACEE T 854.00 INTRACRANIAL INJURY OF [...] DEGROOT DO Ot 414.01 CORONARY ATHEROSCLEROSIS OF [place] CORON 06/24/2013 GAVI DEGROOT DO Ot 425.4 [...] AMANDA MD Ot 414.01 CORONARY ATHEROSCLEROSIS OF [place] CORON 09/14/2013 ABELARDO AMANDA MD Ot 425.4 [...] 09/18/2013 TRACEE LANGE APRN 786.2 COUGH 09/18/2013 TRCAEE LANGE APRN 786.2 COUGH 09/18/2013 DEGROOT DO, [...] MARIN BRIGHT DOA K Ot Z79.899 OTHER ASSISTED (CURRENT) DRUG THERAPY 08/05/2016 KAILA LANGE HOLA [...] MD Ot I25.10 ATHSCL HEART DISEASE OF [place] CORONARY 11/23/2016 QUIN JONES MD Ot J44.9 CHRONIC OBSTRUCTIVE PULMONARY DISEASE, U 11/23/2016 QUIN JONES MD Ot R05 COUGH 11/23/2016 QUIN JONES MD Ot Z79.899 OTHER ASSISTED (CURRENT) DRUG THERAPY 11/26/2016 QUIN JONES MD Ot I25.10 ATHSCL HEART DISEASE OF [place] CORONARY 11/26/2016 QUIN JONES MD Ot J44.9 CHRONIC OBSTRUCTIVE PULMONARY DISEASE, U 11/26/2016 QUIN JONES MD Ot R05 COUGH 11/26/2016 QUIN JONES MD Ot Z79.899 OTHER ASSISTED (CURRENT) DRUG THERAPY 12/26/2016 KAILA DO, HOLA [...] 12/26/2016 KAILA HOLA K Ot Z79.899 OTHER DIGITAL MANAGER (CURRENT) DRUG THERAPY 12/26/2016 KAILA HOLA [...] MD Ot I25.10 ATHSCL HEART DISEASE OF [place] CORONARY 03/06/2017 QUIN JONES MD Ot J44.9 CHRONIC OBSTRUCTIVE PULMONARY DISEASE, U 03/06/2017 QUIN JONES MD Ot K59.00 CONSTIPATION, UNSPECIFIED 03/06/2017 QUIN JONES MD Ot R10.30 LOWER ABDOMINAL PAIN, UNSPECIFIED 03/06/2017 QUIN JONES MD Ot Z79.899 OTHER DIGITAL MANAGER (CURRENT) DRUG THERAPY 03/06/2017 ABELARDO AMANDA MD Ot 397.0 TRICUSPID VALVE DISEASE 03/06/2017 ABELARDO AMANDA MD Ot 424.0 MITRAL VALVE DISORDER 03/06/2017 ABELARDO AMANDA MD Ot 428.0 CONGESTIVE HEART FAILURE NOS 03/06/2017 ABELARDO AMANDA MD Ot 428.0 CONGESTIVE HEART FAILURE NOS 03/07/2017 QUIN JONES MD Ot I16.0 HYPERTENSIVE URGENCY 03/07/2017 QUIN JONES MD, Ot I25.10 ATHSCL HEART DISEASE OF [place] CORONARY 03/07/2017 QUIN JONES MD Ot J44.9 CHRONIC OBSTRUCTIVE PULMONARY DISEASE, U 03/07/2017 QUIN JONES MD Ot K59.00 CONSTIPATION, UNSPECIFIED 03/07/2017 QUIN JONES MD Ot R10.30 LOWER ABDOMINAL PAIN, UNSPECIFIED 03/07/2017 QUIN JONES MD, Ot Z79.899 OTHER ASSISTED (CURRENT) DRUG THERAPY 06/18/2017 ABELARDO AMANDA MD [...] ORTIZ Ot I25.10 ATHSCL HEART DISEASE OF [place] CORONARY 06/18/2017 STAR ORTIZ Ot I25.2 OLD [...] MD Ot I25.10 ATHSCL HEART DISEASE OF [place] CORONARY 02/04/2018 MICHAEL BURRELL MD Ot I25.2 [...] CONVULSIONS 02/04/2018 MICHAEL BURRELL MD Ot Z79.51 DIGITAL MANAGER (CURRENT) USE OF INHALED STERO 02/04/2018 MICHAEL BURRELL MD Ot Z79.52 ASSISTED (CURRENT) USE OF SYSTEMIC STER 02/04/2018 MICHAEL [...] MD Ot I25.10 ATHSCL HEART DISEASE OF [place] CORONARY 02/05/2018 MICHAEL BURRELL MD Ot I25.2 [...] CONVULSIONS 02/05/2018 MICHAEL BURRELL MD Ot Z79.51 ASSISTED (CURRENT) USE OF INHALED STERO 02/05/2018 MICHAEL BURRELL MD Ot Z79.52 DIGITAL MANAGER (CURRENT) USE OF SYSTEMIC STER 02/05/2018 [...] BURRELL MD Ot Z88.8 ALLERGY STATUS TO [facility] DRUG/MEDS/BIOL SUB 02/05/2018 MICHAEL BURRELL MD [...] DO Ot I25.10 ATHSCL HEART DISEASE OF [place] CORONARY 02/24/2018 GAVI DEGROOT DO Ot I27.20 PULMONARY HYPERTENSION, UNSPECIFIED 02/24/2018 GAVI DEGROOT DO Ot I34.0 NONRHEUMATIC MITRAL (VALVE) INSUFFICIENC 02/24/2018 GAVI DEGROOT DO Ot I42.0 DILATED CARDIOMYOPATHY 02/24/2018 GAVI DEGROOT DO Ot I50.21 ACUTE SYSTOLIC (CONGESTIVE) HEART FAILUR 02/24/2018 GAVI DEGROOT DO Ot N18.9 CHRONIC KIDNEY DISEASE, UNSPECIFIED 02/24/2018 GAVI DEGROOT DO Ot Z79.899 OTHER ASSISTED (CURRENT) DRUG THERAPY 02/24/2018 GAVI DEGROOT DO Ot G40.909 EPILEPSY, UNSP, NOT INTRACTABLE, WITHOUT 02/24/2018 GAVI DEGROOT DO Ot G89.29 OTHER CHRONIC PAIN 02/24/2018 GAVI DEGROOT DO Ot I12.9 HYPERTENSIVE CHRONIC KIDNEY DISEASE W ST 02/24/2018 GAVI DEGROOT DO Ot I25.10 ATHSCL HEART DISEASE OF [place] CORONARY 02/24/2018 GAVI DEGROOT DO Ot I27.20 PULMONARY HYPERTENSION, UNSPECIFIED 02/24/2018 GAVI DEGROOT DO Ot I34.0 NONRHEUMATIC MITRAL (VALVE) INSUFFICIENC 02/24/2018 GAVI DEGROOT DO Ot I42.0 DILATED CARDIOMYOPATHY 02/24/2018 GAVI DEGROOT DO Ot I50.21 ACUTE SYSTOLIC (CONGESTIVE) HEART FAILUR 02/24/2018 GAVI DEGROOT DO Ot N18.9 CHRONIC KIDNEY DISEASE, UNSPECIFIED 02/24/2018 GAVI DEGROOT DO Ot Z79.899 OTHER DIGITAL MANAGER (CURRENT) DRUG THERAPY 05/15/2018 Ot A41.9 [...] 05/15/2018 Ot I25.10 ATHSCL HEART DISEASE OF [place] CORONARY 05/15/2018 Ot I42.9 CARDIOMYOPATHY, UNSPECIFIED 05/15/2018 [...] Ot Z99.81 DEPENDENCE ON SUPPLEMENTAL OXYGEN 07/21/2018 Paolo PERKINS MD Ot N18.9 CHRONIC KIDNEY DISEASE, UNSPECIFIED 07/29/2018 Paolo PERKINS MD Ot I08.1 RHEUMATIC DISORDERS OF BOTH MITRAL AND T 07/29/2018 Paolo PERKINS MD Ot I27.20 PULMONARY HYPERTENSION, UNSPECIFIED 07/29/2018 Paolo PERKINS MD Ot I42.8 OTHER CARDIOMYOPATHIES 08/05/2018 Paolo PERKINS MD Ot I08.1 RHEUMATIC DISORDERS OF BOTH MITRAL AND T 08/05/2018 Paolo PERKINS MD Ot Z11.2 ENCOUNTER FOR SCREENING FOR OTHER BACTER 08/05/2018 Paolo PERKINS MD Ot I08.1 RHEUMATIC DISORDERS OF BOTH MITRAL AND T 08/05/2018 Paolo PERKINS MD Ot Z11.2 ENCOUNTER FOR SCREENING FOR OTHER BACTER 08/07/2018 Paolo PERKINS MD Ot I08.1 RHEUMATIC DISORDERS OF BOTH MITRAL AND T 08/07/2018 Paolo PERKINS MD Ot Z11.2 ENCOUNTER FOR SCREENING FOR OTHER BACTER 08/09/2018 Paolo PERKINS MD Ot I08.1 RHEUMATIC DISORDERS OF BOTH MITRAL AND T 08/09/2018 Paolo PERKINS MD Ot Z11.2 ENCOUNTER FOR SCREENING FOR OTHER BACTER 08/17/2018 Paolo PERKINS MD Ot I08.1 RHEUMATIC DISORDERS OF BOTH MITRAL AND T 08/17/2018 Paolo PERKINS MD Ot Z11.2 ENCOUNTER FOR SCREENING FOR OTHER BACTER Procedures Code Description Performed By Performed On 38.93 VENOUS CATHETERIZATION NEC 02/05/2010 53.69 OTH OPEN REP OTH HERNIA OF ANTER ABD W 02/05/2010 Urology [place] 09/16/2012 General S [place] 10/28/2012 91885 ROUTINE VENIPUNCTURE 12/09/2012 29559 CMP 12/09/2012 33507 PHENOBARBITAL 12/09/2012 37421 TSH 12/09/2012 51078 CBC 12/09/2012 PODIATRY CURT [place] 03/02/2013 37.22 LEFT HEART CARDIAC CATH 05/10/2013 88.53 LT HEART ANGIOCARDIOGRAM 05/10/2013 88.56 CORONAR ARTERIOGR-2 CATH 05/10/2013 25458 ECHO 2D 05/21/2013 86.04 OTHER SKIN SUBQ I D 06/20/2013 Physical Wound Care, [facility] 06/29/[address] ABDOMEN & PELVIS W/ & W/ O CONTRAST 12/10/2013 96905 OXIMETRY 12/10/2013 16921 ROUTINE VENIPUNCTURE 08/05/2014 21784 CBC 08/05/2014 [id number] GFR CALC (RESULT ONLY) 08/05/2014 92736 CMP 08/05/2014 21824 OXIMETRY 11/28/2014 J1885 TORADOL PER 15 MG, INJ KETOROLAC TROMETHAMINE 11/28/2014 48047 EAR LAVAGE 02/02/2015 77HF69H INSERTION OF INFUSION DEV INTO SUP VENA [...] culture - 08/05/16 21:25 Bacterial urine culture [id number] NRG COLONY COUNT >100,000/ML NRG FTX;REPORTABLE SENSITIVITY REPORTED 08/07/16 8:10 NR Bacterial susceptibility panel - 08/05/16 21:25 Gentamicin [...] susceptibility test by minimum inhibitory concentration - [facility] BUN - 09/17/16 09:45 BUN 24 mg/dL 6-24 Creatinine, Serum - 09/17/16 09:45 Creatinine, Serum 1.38 mg/dL 0.57-1.00 eGFR If NonAfricn Am 43 mL/min/1.73 >59 eGFR If Africn Am 50 mL/min/1.73 >59 Influenza virus A and B antigen detection - 11/23/16 14:40 FLU RESULT NEGATIVE FOR INFLUENZA A AND B ANTIGENS BY IA NRG Complete blood count (CBC) with automated [...] NRG Blood erythrocyte morphology finding identification NORMAL [facility] Comprehensive metabolic panel - 05/14/18 14:49 Serum [...] NRG Measurement of body temperature 98.2 NRG Methicillin resistant Staphylococcus aureus (MRSA) screening culture - 08:44 MRSA SCREEN RESULT MRSA ISOLATED NRG Encounters ACCT No. Visit Date/Time Discharge Status Pt. Type Provider Facility Loc./Unit Complaint [id number] 09/13/2014 14:47:00 ACT Unknown [id number] 02/03/2015 04:27:10 ACT Document Registration [id number] 02/19/2018 14:28:36 02/19/2018 23:59:59 CLS Outpatient Virgie Bernal [id number] 04/29/2017 09:08:00 Document Registration [id number] 08/03/2018 06:30:00 08/03/2018 23:59:59 CLS Outpatient Paloo PERKINS MD Via [facility] CATH SEVERE MITRAL REGURGITATION BY PRIOR ECHO [id number] 07/24/2018 13:33:00 07/24/2018 23:59:59 CLS Outpatient Paolo PERKINS MD [facility] CARD I34.0 MITRAL REGURGITATION [id number] 07/17/2018 07:52:00 07/17/2018 23:59:59 CLS Outpatient Paolo PERKINS MD [facility] LAB N18.9 [id number] 02/20/2018 22:00:00 02/24/2018 18:50:00 DIS Inpatient GAVI DEGROOT DO Via [facility] 4TH ELEVATED TROPONIN, ELEVATED D-DIMER,SOA [id number] 02/03/2018 22:20:00 02/04/2018 01:26:00 DIS Emergency MICHAEL BURRELL MD Via [facility] ER CP/SEIZURE [id number] 06/18/2017 18:03:00 06/18/2017 21:14:00 DIS Emergency STAR ORTIZ [facility] ER LT LEG SORE/BRUISING [id number] 03/06/2017 09:45:00 03/06/2017 11:46:00 DIS Emergency QUIN JONES MD [facility] ER ABD PAIN [id number] 11/23/2016 14:15:00 11/23/2016 16:00:00 DIS Emergency QUIN JONES MD [facility] ER SOA/COUGH/VOMITING [id number] 08/05/2016 20:48:00 08/05/2016 22:20:00 DIS Emergency HOLA BRIGHT DO Via [facility] ER R LEG WOUND/PAINFUL URINATION/LOWER BACK PAIN [id number] 01/27/2016 20:37:00 01/28/2016 02:05:00 DIS Emergency HOLA BRIGHT DO [facility] ER ABD PAIN,N,V,D [id number] 01/27/2016 01:55:00 01/27/2016 05:47:00 DIS Emergency SANTHOSH LOWE MD [facility] ER L FLANK PAIN [id number] 02/02/2015 15:37:00 02/02/2015 17:07:00 DIS Emergency STAR ORTIZ [facility] ER PAIN [id number] 01/19/2015 01:46:00 01/19/2015 04:46:00 DIS Emergency SANTHOSH LOWE MD [facility] ER MERSA FLARING UP [id number] 11/27/2014 20:30:00 11/27/2014 22:29:00 DIS Emergency STAR ORTIZ [facility] ER BACK PAIN [id number] 06/07/2014 16:31:00 06/10/2014 14:12:00 DIS Inpatient GAVI DEGROOT DO [facility] ICU INTRACTABLE L HIP PAIN, UNABLE TO CARE FOR SELF [id number] 06/05/2014 13:39:00 06/05/2014 16:45:00 DIS Emergency STAR ORTIZ [facility] ER FALL NECK PAIN AND BACK PAIN [id number] 05/23/2014 20:00:00 05/25/2014 11:35:00 DIS Inpatient JOANN GONZALES, MATTHEW Longoria [facility] ICU CHEST PAIN,COPD EXACERBATION,ELEVATED D-DIMER [id number] 04/09/2014 13:14:00 04/09/2014 16:26:00 DIS Emergency NEERAJ VILLA STUDIO ASSISTANT [facility] ER ABD PAIN [id number] 04/06/2014 10:52:00 04/08/2014 11:45:00 DIS Inpatient MIKAYLA LANGE GAVI K [facility] 4TH RESPIRATORY DISTRESS, HYPOXIA,PNEUMONIA,CHEST PAIN [id number] 03/18/2014 16:36:00 03/18/2014 18:25:00 DIS Emergency NEERAJ VILLA STUDIO ASSISTANT [facility] ER SOA [id number] 02/04/2014 19:05:00 02/04/2014 23:17:00 DIS Emergency HOLA BRIGHT DO K [facility] ER CHEST PAIN [id number] 11/14/2013 14:21:00 11/14/2013 18:24:00 DIS Emergency NEERAJ VILLA STUDIO ASSISTANT [facility] ER LOWER BACK PAIN [id number] 09/28/2013 23:45:00 09/29/2013 02:02:00 DIS Emergency CHRISSY GONZALES, SANTHOSH Castellano [facility] ER CHEST PAIN [id number] 09/15/2013 12:59:00 09/15/2013 14:32:00 DIS Emergency ROBERT GONZALES, QUIN Villavicencio [facility] ER COUGH [id number] 09/13/2013 15:15:00 09/14/2013 08:46:00 DIS Inpatient VASILIY GONZALES, ABELARDO Valdovinos [facility] ICU CHEST PAIN, ELEVATED TROPONIA [id number] 07/29/2013 14:25:00 07/29/2013 14:49:00 DIS Outpatient BRI VILLASEÑOR [facility] WOUNDCARE LEG ABSCESS [id number] 06/20/2013 00:03:00 06/24/2013 16:42:00 DIS Inpatient DEGROOT GAVI Michael [facility] SURGICAL MULTIPLE ABSCESSES [id number] 06/04/2013 12:49:00 06/04/2013 23:59:59 CLS Outpatient ABELARDO AMANDA MD [facility] RAD CHF [id number] 06/04/2013 10:53:00 06/04/2013 23:59:59 CLS Outpatient ABELARDO AMANDA MD [facility] CARD CHF [id number] 05/30/2013 13:54:00 05/30/2013 15:27:00 DIS Emergency CHRISSY GONZALES, SANTHOSH Castellano [facility] ER CHEST PAIN [id number] 05/10/2013 01:14:00 05/11/2013 14:24:00 DIS Inpatient NGOC CASTILLO MD [facility] ICU NSTEMI,CHEST PAIN, HYPERTENSIVE URGENCY [id number] 04/29/2013 14:28:00 04/29/2013 23:59:59 CLS Outpatient [id number] 08/20/2018 12:30:00 Paolo Vee MD [facility] CATH MODERATE TO SEVERE MITRAL REGURGITATION [id number] 05/15/2018 00:10:00 Document Registration [id number] 01/27/2016 05:53:00 Document Registration [id number] 12/01/2014 13:05:00 Document Registration [id number] 12/17/2012 04:30:00 Document Registration [id number] 08/03/2012 03:50:00 Document Registration [id number] 07/23/2012 17:10:00 Document Registration [id number] 05/25/2012 03:15:00 Document Registration [id number] 05/09/2012 19:20:00 Document Registration [id number] 03/28/2012 06:00:00 Document Registration [id number] 10/10/2011 13:00:00 Document Registration [id number] 07/16/2011 01:55:00 Document Registration [id number] 07/02/2011 06:44:00 Document Registration [id number] 04/12/2011 19:39:00 Document Registration [id number] 03/22/2011 02:40:00 Document Registration [id number] 03/19/2011 17:35:00 Document Registration [id number] 03/03/2011 20:58:00 Document Registration [id number] 01/21/2011 21:56:00 Document Registration [id number] 12/28/2010 15:45:00 Document Registration [id number] 11/04/2010 20:43:00 Document Registration [id number] 02/05/2010 04:25:00 Document Registration [id number] 09/18/2016 08:45:00 Document Registration [id number] 01/31/2015 15:03:00 01/31/2015 23:59:59 CLS Outpatient KRANTHI PRECIADO MD [id number] 11/28/2014 09:37:00 11/28/2014 23:59:59 CLS Outpatient ANISA MOLINA TRACEE Nona [id number] 08/05/2014 14:32:00 08/05/2014 23:59:59 CLS Outpatient TRACEE LANGE APRN [id number] 07/04/2014 12:54:00 07/04/2014 23:59:59 CLS Outpatient AGUSTÍN DEGROOT DOA Alec [id number] 05/02/2014 15:01:00 05/02/2014 23:59:59 CLS Outpatient MIKAYLA LANGE GAVI Alec [id number] 12/10/2013 14:53:00 12/10/2013 23:59:59 CLS Outpatient TRACEE LANGE APRN [id number] 09/29/2013 15:37:00 09/29/2013 23:59:59 CLS Outpatient TRACEE LANGE APRN [id number] 09/18/2013 12:00:00 09/18/2013 23:59:59 CLS Outpatient TRACEE LANGE APRN [id number] 07/15/2013 14:04:00 07/15/2013 23:59:59 CLS Outpatient KRANTHI PRECIADO MD [id number] 05/31/2013 09:17:00 05/31/2013 23:59:59 CLS Outpatient KRANTHI PRECIADO MD [id number] 12/09/2012 17:16:00 12/09/2012 23:59:59 CLS Outpatient TRACEE LANGE APRN [id number] 10/28/2012 12:04:00 10/28/2012 23:59:59 CLS Outpatient TRACEE LANGE APRN [id number] 10/19/2012 16:04:00 10/19/2012 23:59:59 CLS Outpatient [id number] 09/16/2012 15:22:00 09/16/2012 23:59:59 CLS Outpatient [id number] 08/14/2012 10:30:00 08/14/2012 23:59:59 CLS Outpatient KRANTHI PRECIADO MD [id number] 05/21/2013 10:29:00 Document Registration [id number] 03/02/2013 15:46:00 Document Registration [id number] 05/14/2018 13:00:00 05/14/2018 23:59:59 CLS Outpatient TRACEE LANGE APRN [facility]
[2018-08-20 11:28] LABS: ALBUMIN 4.1 GM/DL (3.2-4.5); BILIRUBIN,TOTAL 0.1 MG/DL (0.1-1.0); CALCIUM 9.4 MG/DL (8.5-10.1); CREATININE SERUM 1.44 MG/DL (0.60-1.30); POTASSIUM 5.6 MMOL/L (3.6-5.0); TOTAL PROTEIN 7.7 GM/DL (6.4-8.2)
--- NOTE | 2018-08-20 13:59 | Anesthesia-Procedure Note ---
Procedures/Interventions Procedure Start/Stop/Diagnosis Date of Procedure: Aug 20, 2018 Start Time: 13:23 Referring Physician: Gregory Preprocedural Diagnosis: Mitral regurg Stop Time: 13:40 SURY/Cardioversion Anesthesia Type: MAC ASA Class: 3 Medications Versed 3 mg, Propofol 120 mg. Monitors and Equipment: BP Cuff - Left, Continuous EKG, End Tidal CO2, IV, Pulse Oximeter READING,CARLOS James CRNA Aug 20, 2018 13:59
== END | disposition home or self-care (01) ==
LOC: CATH 10:18 → EDSTATUS 12:30
PROVIDERS: ATTEND Internal Medicine Interventional Cardiology
DX: I34.0 Nonrheumatic mitral (valve) insufficiency (principal)
CPT/HCPCS: 36415; 80053; 93312; 93320; 93325

== ENCOUNTER 2018-09-10 20:18 | Emergency (ER) | payer MEDICAID ==
[~2018-09-10] VITALS: Ht 160 cm; Wt 84.8 kg
[~2018-09-10 20:18] MED LIST changes: -KETAMINE HCL 100 MG/ML 5 ML VIAL ONE; -LIDOCAINE 2% VISCOUS 15 ML UDC ONE; -MIDAZOLAM 5 MG/5 ML (VERSED) VIAL IVP ONE; -MIDAZOLAM 5 MG/5 ML (VERSED) VIAL ONE; -NS IV 1000 ML 1,000 ML IV SCH; -NS IV 1000 ML 1,000 ML ONE; -proPOfol 200 MG/20 ML (DIPRIVAN) VIAL IV ONE
--- NOTE | 2018-09-10 20:24 | ED Neurological Problem ---
General Stated Complaint: SEIZURE Source: patient Exam Limitations: no limitations History of Present Illness Date Seen by Provider: Sep 10, 2018 Time Seen by Provider: 20:22 Initial Comments To ER per EMS from [facility] where she had a seizure. She has a known seizure disorder and did not take her seizure medication today. She has also not had any of her antihypertensives today. Timing/Duration: 1 week Severity: moderate Associated Symptoms: seizures Allergies and Home Medications Allergies Coded Allergies: nitrous oxide (Verified Allergy, Unknown, 06/08/07) Home Medications Acetaminophen 500 Mg Tablet, 1,000 MG PO Q6H PRN for PAIN-MILD, (Reported) Albuterol Sulfate 1 Puff Puff, 1 PUFF IH Q4H PRN for SHORTNESS OF BREATH, ( Reported) LAST FILLED 18 Amitriptyline HCl 50 Mg Tablet, 50 MG PO DAILY, (Reported) Amoxicillin/Potassium Clav 1 Each Tablet, 1 EACH PO BID Prescribed by: NEERAJ VILLA on 09/10/182125 Carvedilol 12.5 Mg Tablet, 12.5 MG PO BID, (Reported) Clonidine HCl 0.2 Mg Tablet, 0.2 MG PO TID, (Reported) LAST FILLED #90 05-22-18 Doxycycline Hyclate 100 Mg Tablet, 100 MG PO BID Prescribed by: NEERAJ VILLA on 09/10/182125 Fluticasone/Salmeterol 1 Each Blst.w.dev, 1 PUFF IH BID, (Reported) LAST FILLED 09-26-17 Haloperidol 5 Mg Tablet, 5 MG PO Q4H PRN for DELIRIUM, (Reported) Hydralazine HCl 50 Mg Tablet, 50 MG PO TID, (Reported) Hydroxyzine Pamoate 25 Mg Capsule, 25 MG PO Q8H PRN for ANXIETY, (Reported) Loratadine 10 Mg Tablet, 10 MG PO HS, (Reported) Losartan Potassium 100 Mg Tablet, 100 MG PO DAILY, (Reported) LAST FILLED #30 05-22-18 Melatonin 5 Mg Tablet, 5 MG PO HS, (Reported) Metoprolol Succinate 100 Mg Tab.er.24h, 100 MG PO DAILY, (Reported) Oxcarbazepine 600 Mg Tablet, 600 MG PO BID, (Reported) Pantoprazole Sodium 40 Mg Tablet.dr, 40 MG PO DAILY, (Reported) Phenobarbital 97.2 Mg Tablet, 97.2 MG PO DAILY, (Reported) Prednisone 20 Mg Tab, 40 MG PO DAILY Prescribed by: NEERAJ VILLA on 09/10/182125 Quetiapine Fumarate 25 Mg Tablet, 75 MG PO HS, (Reported) TAKES 3 (25MG) TABLETS Spironolactone 25 Mg Tablet, 25 MG PO DAILY, (Reported) LAST FILLED #30 05-22-18 Patient Home Medication List Home Medication List Reviewed: Yes Review of Systems Review of Systems Constitutional: see HPI Eyes: No Symptoms Reported Ears, Nose, Mouth, Throat: no symptoms reported Respiratory: see HPI, cough, wheezing Cardiovascular: no symptoms reported Genitourinary: no symptoms reported Musculoskeletal: no symptoms reported Skin: no symptoms reported Past Plnptsz-Lnswih-Qghhpt Hx Patient Social History Drug of Choice: HX OF IV METH USE Type Used: Cigarettes 2nd Hand Smoke Exposure: Yes Recent Foreign Travel: No Contact w/Someone Who Travel: No Recent Hopitalizations: No Immunizations Up To Date Tetanus Booster (TDap): Less than 5yrs PED Vaccines UTD: No Date of Pneumonia Vaccine: Jul 13, 2012 Date of Influenza Vaccine: Jul 28, 2018 Seasonal Allergies Seasonal Allergies: No Past Medical History Surgeries: Yes (hernia repair, T&A, hysterectomy, bladder suspension, multi to left leg, ) Abdominal, Hysterectomy, Oophorectomy Respiratory: Yes (SUPPOSED TO WEAR O2 AT HS AT 2 1/2-3L AT HS AND PRN) COPD Currently Using CPAP: No Currently Using BIPAP: No Cardiac: Yes Hypertension, Valvular Heart Disease Neurological: Yes (TBI CHILD; CVA LEFT SIDE WEAKNESS, POOR BALANCE/USES WALKER) Seizure Disorder, Stroke 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 Disorders: No Female 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 Sexually Transmitted Disease: No HIV/AIDS: No Kidney Infection, Bladder Infection, Kidney Stones, Renal Failure, UTI-Chronic Gastrointestinal: Yes (CHRONIC ABDOMINAL PAIN COMPLAINT; GASTRITIS; HEPATITIS C ) Gastroesophageal Reflux Musculoskeletal: Yes Arthritis, Chronic Back Pain Endocrine: No HEENT: No Loss of Vision: Denies Hearing Impairment: Denies Cancer: Yes Cervical Psychosocial: Yes (SUBSTANCE ABUSE) Anxiety, Bipolar, Depression Integumentary: No Blood Disorders: Yes (ANEMIA) Adverse Reaction/Blood Tranf: No Family Medical History Abdominal aortic aneurysm 03 FATHER Alcoholism 03 FATHER 03 MOTHER 09 SISTER 09 SISTER Cancer 03 FATHER Cataract 03 FATHER 03 MOTHER Chest pain 03 MOTHER Family history: Diabetes mellitus 03 MOTHER Family history: Hypertension 03 MOTHER Family history: Thyroid disorder 03 MOTHER Headache 09 SISTER Heart disease 03 MOTHER History of drug abuse 03 FATHER 09 SISTER Myocardial infarction 03 MOTHER No Family History of: Waterloo's disease Aphasia Cancer of colon Congenital heart disease Congestive heart failure Cystic fibrosis Dementia Dysphagia Family history: Allergy Family history: Alzheimer's disease Family history: Arthritis Family history: Asthma Family history: Breast disease Family history: Cardiovascular disease Family history: Coronary thrombosis Family history: Gastrointestinal disease Family history: Glaucoma Family history: Osteoporosis Hearing loss Hereditary disease History of - anemia History of - disorder History of - respiratory disease Human immunodeficiency virus (HIV) seropositivity Hypercholesterolemia Infertile Kidney disease Malignant neoplasm of lung Parkinson's disease Prostate cancer Psychotic disorder Seizure disorder Stroke Tuberculosis Visual impairment Diabetes Physical Exam Vital Signs Vital Signs - First Documented 09/10/18 20:19 Temp 99.5 Pulse 97 Resp 22 B/P (MAP) 222/117 (152) Capillary Refill : Height, Weight, BMI Height: 5'3.00" Weight: 187lbs. 0.0oz. 84.373148ck; 33.1 BMI Method:Stated General Appearance: WD/WN, no apparent distress HEENT: PERRL/EOMI, normal ENT inspection Respiratory: no respiratory distress, no accessory muscle use Gastrointestinal: normal bowel sounds, non tender, soft Neurologic/Psychiatric: alert, normal mood/affect, oriented x 3 Crainal Nerves: normal hearing, normal speech Progress/Results/Core Measures Results/Orders Lab Results Laboratory Tests Test 09/10/18 20:30 09/10/18 20:42 Range/Units White Blood Count 9.5 4.3-11.0 10^3/uL Red Blood Count 3.86 L 4.35-5.85 10^6/uL Hemoglobin 11.6 11.5-16.0 G/DL Hematocrit 36 35-52 % Mean Corpuscular Volume 94 80-99 FL Mean Corpuscular Hemoglobin 30 25-34 PG Mean Corpuscular Hemoglobin Concent 32 32-36 G/DL Red Cell Distribution Width 14.3 10.0-14.5 % Platelet Count 254 130-400 10^3/uL Mean Platelet Volume 10.5 H 7.4-10.4 FL Neutrophils (%) (Auto) 75 42-75 % Lymphocytes (%) (Auto) 16 12-44 % Monocytes (%) (Auto) 7 0-12 % Eosinophils (%) (Auto) 2 0-10 % Basophils (%) (Auto) 0 0-10 % Neutrophils # (Auto) 7.1 1.8-7.8 X 10^3 Lymphocytes # (Auto) 1.5 1.0-4.0 X 10^3 Monocytes # (Auto) 0.7 0.0-1.0 X 10^3 Eosinophils # (Auto) 0.2 0.0-0.3 10^3/uL Basophils # (Auto) 0.0 0.0-0.1 10^3/uL Sodium Level 139 135-145 MMOL/L Potassium Level 4.1 3.6-5.0 MMOL/L Chloride Level 110 H 98-107 MMOL/L Carbon Dioxide Level 19 L 21-32 MMOL/L Anion Gap 10 5-14 MMOL/L Blood Urea Nitrogen 30 H 7-18 MG/DL Creatinine 1.35 H 0.60-1.30 MG/DL Estimat Glomerular Filtration Rate 40 BUN/Creatinine Ratio 22 Glucose Level 138 H 70-105 MG/DL Calcium Level 9.0 8.5-10.1 MG/DL Corrected Calcium 9.1 8.5-10.1 MG/DL Total Bilirubin 0.4 0.1-1.0 MG/DL Aspartate Amino Transf (AST/SGOT) 17 5-34 U/L Alanine Aminotransferase (ALT/SGPT) 27 0-55 U/L Alkaline Phosphatase 83 40-136 U/L Total Protein 7.4 6.4-8.2 GM/DL Albumin 3.9 3.2-4.5 GM/DL Urine Color YELLOW Urine Clarity CLEAR Urine pH 6.5 5-9 Urine Specific [place] 1.010 L 1.016-1.022 Urine Protein 2+ H NEGATIVE Urine Glucose (UA) 1+ H NEGATIVE Urine Ketones NEGATIVE NEGATIVE Urine Nitrite NEGATIVE NEGATIVE Urine Bilirubin NEGATIVE NEGATIVE Urine Urobilinogen NORMAL NORMAL MG/DL Urine Leukocyte Esterase NEGATIVE NEGATIVE Urine RBC (Auto) NEGATIVE NEGATIVE Urine RBC NONE /HPF Urine WBC RARE /HPF Urine Squamous Epithelial Cells 0-2 /HPF Urine Crystals NONE /LPF Urine Bacteria NONE /HPF Urine Casts NONE /LPF Urine Mucus NEGATIVE /LPF Urine Culture Indicated NO My Orders Orders - NEERAJ VILLA RIFFLER TENDER Cbc With Automated Diff (09/10/18 20:21) Comprehensive Metabolic Panel (09/10/18 20:21) Chest Pa/Lat (2 View) (09/10/18 20:21) Ua Culture If Indicated (09/10/18 20:21) Phenobarbital Tablet (Phenobarbital Tabl (09/10/18 20:30) Oxcarbazepine Tablet (Trileptal Tablet) (09/10/18 20:30) Clonidine Tablet (Catapres Tablet) (09/10/18 20:30) Spironolactone Tablet (Aldactone Tablet) (09/10/18 20:30) Metoprolol Succinate (Xl) Tab (Toprol Xl (09/10/18 20:30) Labetalol Injection (Normodyne Injection (09/10/18 20:45) Ceftriaxone For Iv Use (Rocephin For I (09/10/18 21:30) Medications Given in ED Current Medications Medications Dose Ordered Sig/Tad Route Start Time Stop Time Status Last Admin Dose Admin Clonidine HCl 0.2 mg ONCE ONCE PO 09/10/18 20:30 09/10/18 20:31 DC 09/10/18 20:34 0.2 MG Labetalol HCl 20 mg ONCE ONCE IV 09/10/18 20:45 09/10/18 20:46 DC 09/10/18 20:34 20 MG Oxcarbazepine 600 mg ONCE ONCE PO 09/10/18 20:30 09/10/18 20:31 DC 09/10/18 20:38 600 MG Phenobarbital 97.2 mg ONCE ONCE PO 09/10/18 20:30 09/10/18 20:31 DC 09/10/18 20:38 97.2 MG Vital Signs/I&O 09/10/18 09/10/18 20:19 20:46 Temp 99.5 Pulse 97 80 Resp 22 B/P (MAP) 222/117 (152) 154/117 (129) Departure Impression Primary Impression: Seizure disorder Additional Impressions: Hypertension Qualified Codes: I10 - Essential (primary) hypertension Pneumonia Qualified Codes: J18.1 - Lobar pneumonia, unspecified organism Disposition: 01 HOME, SELF-CARE Condition: Stable Departure-Patient Inst. Decision time for Depature: 21:23 Referrals: [facility] (PCP/Family) Primary Care Physician Patient Instructions: Community-Acquired Pneumonia in Adults Add. Discharge Instructions: 1. Antibiotics as directed 2. Return to ER for any concerns 3. Scripts Amoxicillin/Potassium Clav (Augmentin 460-125 Tablet) 1 Each Tablet 1 EACH PO BID, #14 TAB Prov: NEERAJ VILLA APRN 09/10/18 Prednisone (Prednisone) 20 Mg Tab 40 MG PO DAILY, #8 TAB Prov: NEERAJ VILLA APRN 09/10/18 NEERAJ VILLA APRN Sep 10, 2018 20:23
[2018-09-10] MEDS ORDERED: OXcarbazepine (TRILEPTAL) 300 MG TAB PO ONE (20:30)
[2018-09-10] MEDS ORDERED: PHENobarbital 97.2 MG (1-1/2 GRAIN) TABLET PO ONE (20:30)
[2018-09-10] MEDS ORDERED: cloNIDine 0.2 MG (CATAPRES) TAB PO ONE (20:30)
[2018-09-10] MEDS ORDERED: meTOprolol SUCCINATE 100 MG (TOPROL XL) TAB PO ONE (20:30)
[2018-09-10] MEDS ORDERED: SPIRONOLACTONE 25 MG (ALDACTONE) TAB PO ONE (20:30)
[2018-09-10 20:40] LABS: BASOPHILS % (AUTO) 0 % (0-10); EOSINOPHILS # (AUTO) 0.2 10^3/uL (0.0-0.3); EOSINOPHILS % (AUTO) 2 % (0-10); HEMATOCRIT 36 % (35-52); HEMOGLOBIN 11.6 G/DL (11.5-16.0); LYMPHOCYTES # (AUTO) 1.5 X 10^3 (1.0-4.0); LYMPHOCYTES % (AUTO) 16 % (12-44); MEAN CORPUSCULAR HEMOGLOBIN 30 PG (25-34); MEAN CORPUSCULAR HGB CONC 32 G/DL (32-36); MEAN CORPUSCULAR VOLUME 94 FL (80-99); MEAN PLATELET VOLUME 10.5 FL (7.4-10.4); MONOCYTES # (AUTO) 0.7 X 10^3 (0.0-1.0); MONOCYTES % (AUTO) 7 % (0-12); NEUTROPHILS # (AUTO) 7.1 X 10^3 (1.8-7.8); NEUTROPHILS % (AUTO) 75 % (42-75); PLATELET COUNT 254 10^3/uL (130-400); RED BLOOD COUNT 3.86 10^6/uL (4.35-5.85); RED CELL DISTRIBUTION WIDTH 14.3 % (10.0-14.5); WHITE BLOOD COUNT 9.5 10^3/uL (4.3-11.0)
[2018-09-10] MEDS ORDERED: LABETALOL HCL 20 MG/4 ML VIAL IV ONE (20:45)
[2018-09-10 20:46] VITALS: BP 154/117
[2018-09-10 20:56] LABS: BILIRUBIN,URINE NEGATIVE (NEGATIVE); CLARITY,URINE CLEAR; COLOR,URINE YELLOW; GLUCOSE, URINE (UA) 1+ (NEGATIVE); KETONES,URINE NEGATIVE (NEGATIVE); LEUKOCYTE ESTERASE ,URINE NEGATIVE (NEGATIVE); NITRITE,URINE NEGATIVE (NEGATIVE); PH,URINE 6.5 (5-9); PROTEIN,URINE 2+ (NEGATIVE); UROBILINOGEN,URINE NORMAL (NORMAL)
[2018-09-10 21:01] LABS: ALBUMIN 3.9 GM/DL (3.2-4.5); BILIRUBIN,TOTAL 0.4 MG/DL (0.1-1.0); CREATININE SERUM 1.35 MG/DL (0.60-1.30); POTASSIUM 4.1 MMOL/L (3.6-5.0); TOTAL PROTEIN 7.4 GM/DL (6.4-8.2)
[2018-09-10 21:02] LABS: SQUAMOUS EPITHELIAL CELL,UR 0-2 /HPF; WBC,URINE RARE /HPF
[2018-09-10] MEDS ORDERED: DOXY100T2 PO (21:26)
[2018-09-10] MEDS ORDERED: PRD20T PO (21:26)
[2018-09-10] MEDS ORDERED: AMOX-358 PO (21:26)
[2018-09-10] MEDS ORDERED: predniSONE 20 MG TAB PO ONE (21:30)
[2018-09-10] MEDS ORDERED: cefTRIAXone FOR IV USE 1,000 MG in NS (IVPB) 50 ML IV ONE (21:30)
[2018-09-10] MEDS ORDERED: AUGMENTIN 875 MG TAB (AMOXICILLIN/CLAVULANATE) PO SCH (21:30)
[2018-09-10] MEDS ORDERED: DOXYCYCLINE 100 MG (VIBRAMYCIN) TABLET PO SCH (21:30)
[2018-09-10 21:48] VITALS: BP 164/114
--- NOTE | 2018-09-10 21:49 | Diagnostic Imaging Report ---
INDICATION: Seizure. COMPARISON: 05/14/2018. EXAMINATION: Frontal and lateral radiographic views of the chest were obtained. FINDINGS: Patchy alveolar opacities within the left lower lobe. Right lung is relatively clear. There is no large effusion or pneumothorax on either side. Cardiac silhouette and pulmonary vasculature are within normal limits. Bony structures show no gross acute abnormality. IMPRESSION: Probable left lower lobe pneumonia. Given the clinical history of seizure, aspiration should also be considered. Dictated by: Dictated on workstation # [id number]
== END 2018-09-10 21:49 | disposition home or self-care (01) ==
LOC: EDUNIT# 20:18 → ER 20:19
DX: G40.909 Epilepsy, unspecified, not intractable, without status epilepticus (principal); I10 Essential (primary) hypertension; J18.9 Pneumonia, unspecified organism; J44.9 Chronic obstructive pulmonary disease, unspecified; F41.9 Anxiety disorder, unspecified; F31.9 Bipolar disorder, unspecified; D64.9 Anemia, unspecified; B19.20 Unspecified viral hepatitis C without hepatic coma; Z87.19 Personal history of other diseases of the digestive system; Z82.49 Family history of ischemic heart disease and other diseases of the circulatory system; Z85.41 Personal history of malignant neoplasm of cervix uteri; Z87.820 Personal history of traumatic brain injury; Z87.448 Personal history of other diseases of urinary system; Z87.440 Personal history of urinary (tract) infections; Z86.73 Personal history of transient ischemic attack (TIA), and cerebral infarction without residual deficits; Z77.22 Contact with and (suspected) exposure to environmental tobacco smoke (acute) (chronic); Z98.890 Other specified postprocedural states; Z90.710 Acquired absence of both cervix and uterus; Z88.8 Allergy status to other drugs, medicaments and biological substances; Z79.51 Long term (current) use of inhaled steroids; Z79.52 Long term (current) use of systemic steroids
CPT/HCPCS: 36415; 71046; 80053; 81000; 85025; 96374

== ENCOUNTER 2019-05-04 08:38 | Emergency (ER) | payer MEDICAID ==
[~2019-05-04] VITALS: Ht 160 cm; Wt 84.8 kg
[~2019-05-04 08:38] MED LIST changes: -AMLO10TA6 PO; +AMLO10TA7 PO; +AMOX-358 PO; +LOSA100T57 PO; -LOSA100T8 PO; -RIVA20TA PO; +RIVA20TA2 PO
--- OUTSIDE RECORDS SUMMARY | 2019-05-04 08:43 | XMS REPORT | Clinical Summary ---
Author Author [facility] Organization [facility] Address Unknown Phone Unavailable Care Team Providers Care Slip Cover Seamstress Name Role Phone Paulo Sander LANGE Unavailable Anita Lopez MD Unavailable Joshua Lynch MD Unavailable Sherice Laurent DO PCP Armin Ventura MD Unavailable Flory Kim RN Unavailable Unavailable Zaynab Zhang MD Unavailable Unavailable Source Comments Some departments are not documenting in the electronic medical record. If you d o not see the information that you expected, contact Release of Information in [facility] [employer] Information Management department at [phone] for further assistan ce in locating additional records.[facility] Allergies Comments Active Allergy Reactions Severity Noted Date Peterson Inhibitors UNKNOWN 06/10/2014 Nitric Oxide UNKNOWN 06/10/2014 Medications End Date Status Medication Sig Dispensed Refills Start Date Active aspirin EC 81 mg tablet Take 81 mg by 0 mouth daily. Active fluticasone-salmeterol Inhale 1 Puff 0 (ADVAIR DISKUS) 100-50 by mouth mcg inhalation disk every 12 hours. Active albuterol (VENTOLIN HFA, Inhale 2 0 PROAIR HFA) 90 Puffs by mcg/actuation inhaler mouth every 4 hours as needed. Active metoclopramide HCl Take 10 mg by 0 (REGLAN) 1 mg/mL oral mouth twice solution daily. Active omeprazole DR(+) Take 20 mg by 0 (PRILOSEC) 20 mg capsule mouth daily. Active metoprolol XL (TOPROL XL) Take 50 mg by 0 50 mg tablet mouth daily. Active senna/docusate Take 1 Tab by 60 Tab 0 (SENOKOT-S) 8.6/50 mg mouth twice 4 tablet daily. Active acetaminophen SR(+) Take 650 mg 0 (TYLENOL) 650 mg tablet by mouth every 6 hours as needed. Active ferrous sulfate 325 mg Take 1 Tab by 30 Tab 1 (65 mg iron) tablet mouth at 4 bedtime daily. Active polyethylene glycol 3350 Take 17 g by 1 Bottle 1 (GLYCOLAX; MIRALAX) 17 mouth daily 4 gram/dose powder as needed (constipation ). Active morphine IR (MSIR) 15 mg Take 0.5 Tabs 120 Tab 2 tablet by mouth 4 every 3 hours as needed for Pain Earliest Fill Date: 09/20/14 Active morphine SR (MS CONTIN; Take 1 Tab by 60 Tab 3 ORAMORPH SR) 15 mg tablet mouth twice 4 daily Earliest Fill Date: 09/20/14 Active traMADol (ULTRAM) 50 mg Take 0.5 Tabs 30 Tab 1 tablet by mouth 4 every 8 hours as needed for Pain. Active gabapentin (NEURONTIN) Take 1 Cap by 270 Cap 3 300 mg capsule mouth three 4 times daily. Active bisacodyl (DULCOLAX) 10 Insert or 15 0 mg rectal suppository Apply 1 Suppository 4 Suppository to rectal area as directed daily as needed. Active cyclobenzaprine Take 1 Tab by 60 Tab 1 (FLEXERIL) 10 mg tablet mouth twice 4 daily (at 10AM and 10PM). Active lidocaine (LIDODERM) 5 % Apply to 30 Patch 1 topical patch painful area 4 as needed Active LORazepam injection Administer 10 0 (ATIVAN) 2 mg/mL syrg mg through vein every 1 hour as needed. Active LORazepam injection Administer 5 0 (ATIVAN) 2 mg/mL syrg mg through vein every 1 hour as needed. Active PHENobarbital 97.2 mg Take 97.2 mg 0 tablet by mouth at bedtime daily. Active trimethoprim-sulfamethoxa Take 1 Tab by 60 Tab 3 zole (BACTRIM DS) 160-800 mouth twice 5 mg tablet daily. 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 Immunizations Name Administration Dates Next Due Flu Vaccine Trivalent=>3 07/12/2014 Yo (Preservative Free) Family History Medical History Relation Name Comments Alcohol abuse Father Aneurysm Father Abdominal Aortic Cancer Father Diabetes Father Drug Abuse Father Diabetes Mother Drug Abuse Mother Heart Attack Mother Heart Failure Mother Hypertension Mother Thyroid Disease Mother Relation Name Status Comments Father Mother Social History Date Tobacco Use Types Packs/Day Years Used Never Smoker Smokeless Tobacco: Never Used Drinks/Week oz/Week Comments Alcohol Use denies alcohol use - states every 6 months or so may have a drink No Sex Assigned at Date Recorded Not on file Industry Job Start Date Occupation Not on file Not on file Not on file Travel End Travel History Travel Start No recent travel history available. Last Filed Vital Signs Reading Time Taken Comments Vital Sign 110/80 11/11/2014 1:07 PM [employer] Blood Pressure 72 11/11/2014 1:07 PM [employer] Pulse 36.5 C (97.7 F) 11/11/2014 1:07 PM [employer] Temperature 16 11/11/2014 1:07 PM [employer] Respiratory Rate 94% 09/21/2014 7:45 AM [employer] ASSISTANT Oxygen Saturation - - Inhaled Oxygen Concentration 82.1 kg (181 lb) 11/11/2014 1:07 PM [employer] ASSIST[employer] Weight 160 cm (5' 3") 11/11/2014 1:07 PM [employer]S ASSIST[employer] Height 32.06 11/11/2014 1:07 PM [employer] ASSIST[employer] Body Mass Index Plan of Treatment Health Maintenance Due Date Last Done Comments PHYSICAL (COMPREHENSIVE) 1967 EXAM DTAP/TDAP VACCINES (1 - 1978 Tdap) CERVICAL CANCER SCREENING 1990 BREAST CANCER SCREENING 2000 COLORECTAL CANCER 2010 SCREENING SHINGLES RECOMBINANT 2010 VACCINE (1 of 2) INFLUENZA VACCINE 07/13/2019 07/12/2014 HEPATITIS C SCREENING Completed 06/11/2014, 06/11/2014, 06/10/2014 HIV SCREENING Completed 06/11/2014 Results Not on filefrom Last 3 Months Advance Directives Patient [employer] Explanation Type Date Recorded Advance 06/11/2014 9:42 AM Directive/DPOA Date Inactivated Comments Code Status Date Activated 09/21/2014 11:39 AM Full Code 09/17/2014 5:59 PM Provider has discussed Code Status Yes w/Patient or Family? 09/17/2014 5:59 PM Full Code 09/11/2014 10:24 PM Provider has discussed Code Status No, more discussion w/Patient or Family? needed 06/22/2014 6:12 PM Full Code 06/10/2014 4:57 PM Provider has discussed Code Status Yes w/Patient or Family?
--- OUTSIDE RECORDS SUMMARY | 2019-05-04 08:43 | XMS REPORT ---
Author Author TRACEE LANGE Organization [facility] Address [address] [place] [address] Care Team Providers Care Medical Claims Examiner Name Role Phone TRACEE LANGE Unavailable PROBLEMS Type Condition ICD9-CM Code SDX40-KH Code Onset Dates Condition Status SNOMED Code Problem Thoracic neuritis M54.14 Active 01079961 Problem Lumbar neuritis M54.16 Active 786276832 Problem Hypertension, benign I10 Active 22516261 Problem Mood disorder F39 Active 00107328 Problem Intracranial injury, without loss of consciousness, subsequent encounter S06.9X0D Active 250392906 Problem Seasonal allergic rhinitis, unspecified trigger J30.2 Active 766338145 Problem Cardiomyopathy I42.9 Active 89126522 Problem GERD (gastroesophageal reflux disease) K21.9 Active 510858783 Problem Epileptic seizure, generalized G40.309 Active 61576017 Problem Ventricular arrhythmia I49.9 Active 94440413 ALLERGIES No Information ENCOUNTERS Encounter Location Date Diagnosis [facility] [id number] [place] [address] Jan, [facility] [id number] [place] [address] Jan, Seizures R56.9 [facility] [id number] [place] [address] Dec, Seizures R56.9 [facility] [id number] [place] [address] Nov, Dysuria R30.0 and Urinary tract infection without hematuria, site unspecified N39.0 [facility] [id number] [place] [address] Nov, [facility] [address] [address] Nov, Seizures R56.9 [facility] [id number] [place] [address] Sep, Seizures R56.9 [facility] [address] [address] Sep, Seasonal allergic rhinitis, unspecified trigger J30.2 [facility] [address] [address] Aug, Neck pain on left side M54.2 ; Mood disorder F39 and GERD (gastroesophageal reflux disease) K21.9 [facility] [address] [address] Aug, Seizures R56.9 [facility] [address] [address] Aug, Mood disorder F39 ; Neck pain on left side M54.2 and Hypertension, benign I10 [facility] [address] [address] Aug, [facility] [address] [address] Aug, [facility] [id number] [place] [address] Jul, [facility] [id number] [place] [address] Jul, Hypertension, benign I10 [facility] [id number] [place] [address] Jul, [facility] [address] [address] Jul, Thoracic neuritis M54.14 ; Pain of left leg M79.605 and Pain in right leg M79.604 [facility] [id number] [place] [address] Jun, Seizures R56.9 [facility] [id number] [place] [address] May, [facility] [id number] [place] [address] May, [facility] [id number] [place] [address] May, [facility] [address] [address] May, Seizures R56.9 [facility] [id number] [place] [address] May, [facility] [id number] [place] [address] May, Delirium R41.0 [facility] [id number] [place] [address] Apr, [facility] [id number] [place] [address] February, Ventricular arrhythmia I49.9 [facility] [id number] [place] [address] February, [facility] [id number] [place] [address] Dec, Thoracic neuritis M54.14 ; Lumbar neuritis M54.16 and Epileptic seizure, generalized G40.309 [facility] [id number] [place] [address] Sep, Epileptic seizure, generalized G40.309 and Lumbar neuritis M54.16 [facility] [id number] [place] [address] Aug, Thoracic neuritis M54.14 and Lumbar neuritis M54.16 [facility] [id number] [place] [address] Jun, [facility] [address] [address] Jun, Abscess of leg, left L02.416 [place] [address] [address] May, Lumbar neuritis M54.16 ; Thoracic neuritis M54.14 ; Intracranial injury, without loss of consciousness, subsequent encounter S06.9X0D and Cardiomyopathy I42.9 [place] [address] [address] Apr, Lumbar neuritis M54.16 [place] [address] [address] Apr, [place] [address] [address] Apr, Elevated liver enzymes R74.8 and Renal insufficiency N28.9 [place] [address] [address] Apr, Lumbar neuritis M54.16 ; Thoracic neuritis M54.14 ; Hypertension, benign I10 ; Cardiomyopathy I42.9 and Epileptic seizure, generalized G40.309 [place] [address] [address] Mar, [place] [address] [address] February, [place] [address] [address] February, Lumbar neuritis M54.16 ; Thoracic neuritis M54.14 ; Hypertension, benign I10 ; Cardiomyopathy I42.9 and Epileptic seizure, generalized G40.309 [place] [address] [address] Dec, [place] [address] [address] Sep, Epigastric mass R19.06 [place] [address] [place] [address] Sep, Epigastric mass R19.06 [place] [address] [address] Sep, [place] [address] [address] Sep, Epigastric mass R19.06 [place] [address] [address] Sep, Epigastric mass R19.06 and Lung mass R91.8 [facility] [place] [address] [address] Jul, Shortness of breath R06.02 ; Dysuria R30.0 and Acute bronchitis, unspecified organism J20.9 [place] [address] [address] Jul, [place] [address] [address] Jun, Seizures R56.9 ; Thoracic neuritis M54.14 ; Lumbar neuritis M54.16 and GERD (gastroesophageal reflux disease) K21.9 [facility] [place] [address] [address] Jan, [place] [id number] [place] [address] Sep, [place] [address] [address] Sep, Intracranial injury, without loss of consciousness, subsequent encounter S06.9X0D ; Cardiomyopathy I42.9 ; GERD (gastroesophageal reflux disease) K21.9 ; Hypertension, benign I10 ; Thoracic neuritis M54.14 and Lumbar neuritis M54.16 [place] [id number] [place] [address] Mar, [place] [address] [address] Mar, Coronary atherosclerosis of unspecified type of vessel, [place] or graft 414.00 ; Unspecified essential hypertension 401.9 ; Thoracic or lumbosacral neuritis or radiculitis, unspecified 724.4 and Other convulsions 780.39 [facility] [id number] [address] 14 Jan, 2015 [facility] [id number] [place] [address] Jan, [facility] [id number] [place] [address] Nov, [facility] [id number] [place] [address] Nov, [facility] [id number] [place] [address] Nov, [facility] [id number] [place] [address] Nov, [facility] [id number] [place] [address] Nov, [facility] [id number] [place] [address] Nov, [facility] [id number] [place] [address] Nov, [facility] [id number] [place] [address] Nov, [facility] [address] [address] Nov, [facility] [id number] [place] [address] Nov, [facility] [address] [address] Sep, [facility] [address] [place] [address] Sep, [facility] [place] [facility] [address] [id number] [place] [address] Aug, [facility] [place] [facility] [address] [id number] [place] [address] Aug, [facility] [place] [facility] [address] [id number] [place] [address] Aug, [facility] [place] [facility] [address] [id number] [place] [address] Aug, [facility] [place] [facility] [address] [id number] [place] [address] Jul, [facility] [place] [facility] [address] [id number] [place] [address] Jul, [facility] [place] [facility] [address] [id number] [place] [address] Jul, [facility] [place] [facility] [address] [id number] [place] [address] Jul, [facility] [place] [facility] [address] [id number] [place] [address] Jun, [facility] [place] [facility] [address] [id number] [place] [address] Jun, [facility] [place] [facility] [address] [id number] [place] [address] Jun, [facility] [place] [facility] [address] [id number] [place] [address] May, [facility] [place] [facility] [address] [id number] [place] [address] May, [facility] [place] [facility] [address] [id number] [place] [address] May, [facility] [place] [facility] [address] [id number] [place] [address] May, [facility] [place] [facility] [address] [id number] [place] [address] May, [facility] [place] [facility] [address] [id number] [place] [address] May, [facility] [place] [facility] [address] [id number] [place] [address] May, [facility] [place] [facility] [address] [id number] [place] [address] May, [facility] [place] [facility] [address] [id number] [place] [address] February, [facility] [place] [facility] [address] [id number] [place] [address] February, [facility] [place] [facility] [address] [id number] [place] [address] Jan, [facility] [place] [facility] [address] [id number] [place] [address] Jan, [facility] [place] [facility] [address] [id number] [place] [address] Jan, [facility] [place] [facility] [address] [id number] [place] [address] Jan, [facility] [place] [facility] [address] [id number] [place] [address] Nov, [facility] [place] [facility] [address] [id number] [place] [address] Nov, [facility] [place] [facility] [address] [id number] [place] [address] Nov, [facility] [place] [facility] [address] [id number] [place] [address] Nov, [facility] [place] [facility] [address] [id number] [place] [address] Sep, [facility] [place] [facility] [address] [id number] [place] [address] 18 Sep, 2013 [facility] [address] [id number] [place] [address] 07 Sep, 2013 [facility] [address] [id number] [place] [address] Sep, [facility] [address] [id number] [place] [address] Sep, [facility] [address] [id number] [place] [address] Sep, [facility] [address] [id number] [place] [address] Jul, [facility] [address] [id number] [place] [address] Jul, [facility] [address] [id number] [place] [address] Jun, [facility] [address] [id number] [place] [address] Jun, [facility] [address] [id number] [place] [address] Jun, [facility] [address] [id number] [place] [address] May, [facility] [address] [place] [id number] May, [facility] [address] [id number] [place] [address] May, [facility] [address] [id number] [place] [address] May, [facility] [address] [id number] [place] [address] May, [facility] [address] [id number] [place] [address] May, [facility] [address] [id number] [place] [address] May, [facility] [address] [id number] [place] [address] Apr, [facility] [place] [facility] [address] [id number] [place] [address] Apr, [facility] [address] [id number] [place] [address] Apr, [facility] [address] [id number] [place] [address] Apr, [facility] [address] [id number] [place] [address] Mar, [facility] [address] [id number] [place] [address] February, [facility] [address] [id number] [place] [address] Jan, [facility] [address] [id number] [place] [address] Dec, [facility] [address] [id number] [place] [address] Dec, [facility] [address] [id number] [place] [address] Dec, [facility] [address] [id number] [place] [address] Nov, [facility] [address] [id number] [place] [address] Nov, [facility] [place] [facility] [address] [id number] [place] [address] Nov, [facility] [place] [facility] [address] [id number] [place] [address] Oct, [facility] [place] [facility] [address] [id number] [place] [address] Oct, [facility] [place] [facility] [address] [id number] [place] [address] Sep, [facility] [place] [facility] [address] [id number] [place] [address] Sep, [facility] [place] [facility] [address] [id number] [place] [address] Sep, [facility] [place] [facility] [address] [id number] [place] [address] Sep, [facility] [place] [facility] [address] [id number] [place] [address] Sep, [facility] [place] [facility] [address] [id number] [place] [address] Sep, [facility] [place] [facility] [address] [id number] [place] [address] Aug, [facility] [place] [facility] [address] [id number] [place] [address] Aug, [facility] [place] [facility] [address] [id number] [place] [address] Aug, [facility] [place] [facility] [address] [id number] [place] [address] Aug, [facility] [place] [facility] [address] [id number] [place] [address] Aug, [facility] [place] [facility] [address] [id number] [place] [address] Aug, [facility] [place] [facility] [address] [id number] [place] [address] Aug, [facility] [place] [facility] [address] [id number] [place] [address] Aug, [facility] [place] [facility] [address] [id number] [place] [address] Aug, [facility] [place] [facility] [address] [id number] [place] [address] Aug, [facility] [place] [facility] [address] [id number] [place] [address] Jul, 2011 [facility] [place] [facility] [address] [id number] [place] [address] Jul, [facility] [place] [facility] [address] [id number] [place] [address] Jul, 2011 [facility] [place] [facility] [address] [id number] [place] [address] Jul, [facility] [place] [facility] [address] [id number] [place] [address] Jul, [facility] [place] [facility] [address] [id number] [place] [address] Jul, [facility] [place] [facility] [address] [id number] [place] [address] Jul, [facility] [place] [facility] [address] [id number] [place] [address] Jul, [facility] [place] [facility] [address] [id number] [place] [address] Jul, [facility] [place] [facility] [address] [facility] [id number] [place] [address] Jul, [facility] [place] [facility] [address] [id number] [place] [address] Jul, [facility] [place] [facility] [address] [id number] [place] [address] Jul, 2011 [facility] [place] [facility] [address] [id number] [place] [address] Jul, [facility] [place] [facility] [address] [facility] [id number] [place] [address] Jul, [facility] [place] [facility] [address] [id number] [place] [address] Jul, [facility] [place] [facility] [address] [id number] [place] [address] 28 Jun, 2012 [facility] [place] [facility] [address] [id number] [place] [address] 24 Jun, 2012 [facility] [place] [facility] [address] [id number] [place] [address] 19 Jun, 2012 [facility] [place] [facility] [address] [id number] [place] [address] May, [facility] [place] [facility] [address] [id number] [place] [address] May, [facility] [place] [facility] [address] [id number] [place] [address] Mar, [facility] [place] [facility] [address] [id number] [place] [address] Mar, [facility] [place] [facility] [address] [id number] [place] [address] February, [facility] [place] [facility] [address] [id number] [place] [address] February, [facility] [place] [facility] [address] [id number] [place] [address] Nov, [facility] [place] [facility] [address] [id number] [place] [address] Oct, [facility] [place] [facility] [address] [id number] [place] [address] Oct, [facility] [place] [facility] [address] [id number] [place] [address] Oct, [facility] [place] [facility] [address] [id number] [place] [address] Aug, [facility] [place] [facility] [address] [id number] [place] [address] 17 Jul, 2011 [facility] [place] [facility] [address] [id number] [place] [address] Sep, [facility] [address] [address] Aug, [facility] [address] [address] Jul, [facility] [address] [address] Apr, [facility] [id number] [place] [address] February, [facility] [address] [address] Sep, [facility] [id number] [place] [address] Sep, [facility] [id number] [place] [address] Sep, [facility] [id number] [place] [phone] Apr, [facility] [id number] [place] [phone] Mar, [facility] [id number] [place] [address] February, [facility] [id number] [place] [address] Jan, [facility] [id number] [place] [address] Jul, IMMUNIZATIONS No Known Immunizations SOCIAL HISTORY Never Assessed REASON FOR VISIT PLAN OF CARE VITAL SIGNS MEDICATIONS Unknown Medications RESULTS No Results PROCEDURES No Known procedures INSTRUCTIONS MEDICATIONS ADMINISTERED No Known Medications MEDICAL (GENERAL) HISTORY Type Description Date Medical History 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
--- OUTSIDE RECORDS SUMMARY | 2019-05-04 08:44 | XMS REPORT ---
Author Author Migration, Doctor Organization [facility] Address Unknown Phone Unavailable Care Team Providers Care Closet Organizer Name Role Phone Migration, Doctor Unavailable Unavailable PROBLEMS Type Condition ICD9-CM Code TGV61-ER Code Onset Dates Condition Status SNOMED Code Problem Thoracic neuritis M54.14 Active 68444584 Problem Lumbar neuritis M54.16 Active 015288201 Problem Hypertension, benign I10 Active 08483763 Problem Mood disorder F39 Active 67693490 Problem Intracranial injury, without loss of consciousness, subsequent encounter S06.9X0D Active 798284531 Problem Seasonal allergic rhinitis, unspecified trigger J30.2 Active 319233895 Problem Cardiomyopathy I42.9 Active 32811906 Problem GERD (gastroesophageal reflux disease) K21.9 Active 133253612 Problem Epileptic seizure, generalized G40.309 Active 85858119 Problem Ventricular arrhythmia I49.9 Active 69806392 ALLERGIES No Information ENCOUNTERS Encounter Location Date Diagnosis [facility] [id number] [place] [address] Jan, [facility] [id number] [place] [address] Jan, Seizures R56.9 [facility] [id number] [place] [address] Dec, Seizures R56.9 [facility] [address] [address] Nov, Dysuria R30.0 and Urinary tract infection without hematuria, site unspecified N39.0 [facility] [id number] [place] [address] Nov, [facility] [id number] [place] [address] Nov, Seizures R56.9 [facility] [id number] [place] [address] 27 Sep, 2018 Seizures R56.9 [facility] [address] [address] Sep, Seasonal allergic rhinitis, unspecified trigger J30.2 [facility] [address] [address] Aug, Neck pain on left side M54.2 ; Mood disorder F39 and GERD (gastroesophageal reflux disease) K21.9 [facility] [address] [address] Aug, Seizures R56.9 [facility] [address] [address] Aug, Mood disorder F39 ; Neck pain on left side M54.2 and Hypertension, benign I10 [facility] [address] [address] Aug, [facility] [id number] [place] [address] Aug, [facility] [address] [address] Jul, [facility] [id number] [place] [address] Jul, Hypertension, benign I10 [facility] [id number] [place] [address] Jul, [facility] [id number] [place] [address] Jul, Thoracic neuritis M54.14 ; Pain of left leg M79.605 and Pain in right leg M79.604 [facility] [id number] [place] [address] Jun, Seizures R56.9 [facility] [address] [address] May, [facility] [id number] [place] [address] May, [facility] [id number] [place] [address] May, [facility] [id number] [place] [address] May, Seizures R56.9 [facility] [address] [address] May, [facility] [id number] [place] [address] May, Delirium R41.0 [facility] [id number] [place] [address] Apr, [facility] [address] [address] February, Ventricular arrhythmia I49.9 [facility] [id number] [place] [address] February, [facility] [id number] [place] [address] Dec, Thoracic neuritis M54.14 ; Lumbar neuritis M54.16 and Epileptic seizure, generalized G40.309 [facility] [id number] [place] [address] Sep, Epileptic seizure, generalized G40.309 and Lumbar neuritis M54.16 [facility] [id number] [place] [address] Aug, Thoracic neuritis M54.14 and Lumbar neuritis M54.16 [facility] [id number] [place] [address] Jun, [facility] [id number] [place] [address] Jun, Abscess of leg, left L02.416 [facility] [id number] [place] [address] May, Lumbar neuritis M54.16 ; Thoracic neuritis M54.14 ; Intracranial injury, without loss of consciousness, subsequent encounter S06.9X0D and Cardiomyopathy I42.9 [facility] [id number] [place] [address] Apr, Lumbar neuritis M54.16 [facility] [id number] [place] [address] Apr, [place] [address] [address] Apr, Elevated liver enzymes R74.8 and Renal insufficiency N28.9 [place] [id number] [place] [address] Apr, Lumbar neuritis M54.16 ; Thoracic neuritis M54.14 ; Hypertension, benign I10 ; Cardiomyopathy I42.9 and Epileptic seizure, generalized G40.309 [place] [id number] [place] [address] Mar, [place] [address] [address] February, [place] [id number] [place] [address] February, Lumbar neuritis M54.16 ; Thoracic neuritis M54.14 ; Hypertension, benign I10 ; Cardiomyopathy I42.9 and Epileptic seizure, generalized G40.309 [facility] [id number] [place] [address] Dec, [place] [address] [address] Sep, Epigastric mass R19.06 [place] [id number] [place] [address] Sep, Epigastric mass R19.06 [facility] [id number] [place] [address] Sep, [facility] [address] [address] Sep, Epigastric mass R19.06 [facility] [address] [address] Sep, Epigastric mass R19.06 and Lung mass R91.8 [facility] [address] [address] Jul, Shortness of breath R06.02 ; Dysuria R30.0 and Acute bronchitis, unspecified organism J20.9 [place] [address] [address] Jul, [place] [address] [address] Jun, Seizures R56.9 ; Thoracic neuritis M54.14 ; Lumbar neuritis M54.16 and GERD (gastroesophageal reflux disease) K21.9 [facility] [address] [address] Jan, [place] [address] [address] Sep, [place] [address] [address] Sep, Intracranial injury, without loss of consciousness, subsequent encounter S06.9X0D ; Cardiomyopathy I42.9 ; GERD (gastroesophageal reflux disease) K21.9 ; Hypertension, benign I10 ; Thoracic neuritis M54.14 and Lumbar neuritis M54.16 [place] [id number] [place] [address] Mar, [place] [address] [address] Mar, Coronary atherosclerosis of unspecified type of vessel, douglas or graft 414.00 ; Unspecified essential hypertension 401.9 ; Thoracic or lumbosacral neuritis or radiculitis, unspecified 724.4 and Other convulsions 780.39 [facility] [address] [address] 14 Jan, 2015 [facility] [id number] [place] [address] Jan, [facility] [id number] [place] [address] Nov, [facility] [id number] [place] [address] Nov, [facility] [id number] [place] [address] Nov, [facility] [id number] [place] [address] Nov, [facility] [address] [address] Nov, [facility] [id number] [place] [address] Nov, [facility] [address] [address] Nov, [facility] [address] [address] Nov, [facility] [address] [address] Nov, [facility] [id number] [place] [address] Nov, [facility] [address] [address] Sep, [facility] [id number] [place] [address] Sep, [facility] [place] [facility] [address] [id number] [place] [address] Aug, [facility] [place] [facility] [address] [id number] [place] [address] Aug, [facility] [place] [facility] [address] [id number] [place] [address] Aug, [facility] [place] [facility] [address] [id number] [place] [address] Aug, [facility] [place] [facility] [address] [id number] [place] [address] Jul, [facility] [place] [facility] [address] [id number] [place] [address] Jul, [facility] [place] [facility] [address] [id number] [place] [address] Jul, [facility] [place] [facility] [address] [id number] [place] [address] Jul, [facility] [place] [facility] [address] [id number] [place] [address] Jun, [facility] [place] [facility] [address] [id number] [place] [address] Jun, [facility] [place] [facility] [address] [id number] [place] [address] Jun, [facility] [place] [facility] [address] [id number] [address] May, [facility] [place] [facility] [address] [id number] [place] [address] May, [facility] [place] [facility] [address] [id number] [place] [address] May, [facility] [place] [facility] [address] [id number] [place] [address] May, [facility] [place] [facility] [address] [id number], [place] [address] May, [facility] [place] [facility] [address] [id number] [place] [address] May, [facility] [place] [facility] [address] [id number] [place] [address] May, [facility] [place] [facility] [address] [id number] [place] [address] May, [facility] [place] [facility] [address] [id number] [place] [address] February, [facility] [place] [facility] [address] [id number] [place] [address] February, [facility] [place] [facility] [address] [id number] [place] [address] Jan, [facility] [place] [facility] [address] [id number] [place] [address] Jan, [facility] [place] [facility] [address] [id number] [place] [address] Jan, [facility] [place] [facility] [address] [id number] [place] [address] Jan, [facility] [place] [facility] [address] [facility] [id number] [place] [address] Nov, [facility] [place] [facility] [address] [id number] [place] [address] Nov, [facility] [place] [facility] [address] [id number] [place] [address] Nov, [facility] [place] [facility] [address] [id number] [place] [address] Nov, [facility] [place] [facility] [address] [id number] [place] [address] Sep, [facility] [place] [facility] [address] [id number] [place] [address] Sep, [facility] [place] [facility] [address] [id number] [place] [address] 07 Sep, 2013 [facility] [address] [id number] [place] [address] Sep, [facility] [address] [id number] [place] [address] Sep, [facility] [address] [id number] [place] [address] Sep, [facility] [address] [id number] [place] [address] Jul, [facility] [address] [id number] [place] [address] Jul, [facility] [address] [id number] [place] [address] Jun, [facility] [address] [id number] [place] [address] Jun, [facility] [address] [id number] [place] [address] Jun, [facility] [address] [id number] [place] [address] May, [facility] [address] [place] [id number] May, [facility] [address] [id number] [place] [address] May, [facility] [address] [id number] [place] [address] May, [facility] [address] [id number] [place] [address] May, [facility] [address] [id number] [place] [address] May, [facility] [address] [id number] [place] [address] May, [facility] [address] [id number] [place] [address] Apr, [facility] [place] [facility] [address] [id number] [place] [address] Apr, [facility] [place] [facility] [address] [id number] [place] [address] Apr, [facility] [place] [facility] [address] [id number] [place] [address] Apr, [facility] [address] [id number] [place] [address] Mar, [facility] [place] [facility] [address] [id number] [place] [address] February, [facility] [address] [id number] [place] [address] Jan, [facility] [address] [id number] [place] [address] Dec, [facility] [place] [facility] [address] [id number] [place] [address] Dec, [facility] [place] [facility] [address] [id number] [place] [address] Dec, [facility] [place] [facility] [address] [id number] [place] [address] Nov, [facility] [place] [facility] [address] [id number] [place] [address] Nov, [facility] [place] [facility] [address] [id number] [place] [address] Nov, [facility] [place] [facility] [address] [id number] [place] [address] Oct, [facility] [place] [facility] [address] [id number] [place] [address] Oct, [facility] [place] [facility] [address] [id number] [place] [address] 05 Sep, 2012 [facility] [place] [facility] [address] [id number] [place] [address] Sep, [facility] [place] [facility] [address] [id number] [place] [address] Sep, [facility] [place] [facility] [address] [id number] [place] [address] Sep, [facility] [place] [facility] [address] [id number] [place] [address] Sep, [facility] [place] [facility] [address] [id number] [place] [address] Sep, [facility] [place] [facility] [address] [id number] [place] [address] Aug, [facility] [place] [facility] [address] [id number] [place] [address] Aug, [facility] [place] [facility] [address] [id number] [place] [address] Aug, [facility] [place] [facility] [address] [id number] [place] [address] Aug, [facility] [place] [facility] [address] [id number] [place] [address] Aug, [facility] [place] [facility] [address] [id number] [place] [address] Aug, [facility] [place] [facility] [address] [id number], [place] [address] Aug, [facility] [place] [facility] [address] [id number] [place] [address] Aug, [facility] [place] [facility] [address] [id number] [place] [address] Aug, [facility] [place] [facility] [address] [id number] [place] [address] Aug, [facility] [place] [facility] [address] [id number] [place] [address] Jul, 2011 [facility] [place] [facility] [address] [id number] [place] [address] Jul, [facility] [place] [facility] [address] [id number] [place] [address] Jul, 2011 [facility] [place] [facility] [address] [id number] [place] [address] Jul, [facility] [place] [facility] [address] [id number] [place] [address] Jul, [facility] [place] [facility] [address] [id number] [place] [address] Jul, [facility] [place] [facility] [address] [id number] [place] [address] Jul, [facility] [place] [facility] [address] [id number] [place] [address] Jul, [facility] [place] [facility] [address] [id number] [place] [address] Jul, [facility] [place] [facility] [address] [id number] [place] [address] Jul, [facility] [place] [facility] [address] [id number] [place] [address] Jul, [facility] [place] [facility] [address] [id number] [place] [address] Jul, [facility] [place] [facility] [address] [id number] [place] [address] Jul, [facility] [place] [facility] [address] [id number] [place] [address] Jul, [facility] [place] [facility] [address] [id number] [place] [address] Jul, [facility] [place] [facility] [address] [id number] [place] [address] 28 Jun, 2012 [facility] [place] [facility] [address] [id number] [place] [address] 24 Jun, 2012 [facility] [place] [facility] [address] [id number] [place] [address] Jun, [facility] [place] [facility] [address] [id number] [place] [address] May, [facility] [place] [facility] [address] [id number] [place] [address] May, [facility] [place] [facility] [address] [id number] [place] [address] Mar, [facility] [place] [facility] [address] [id number] [place] [address] Mar, [facility] [place] [facility] [address] [id number] [place] [address] February, [facility] [place] [facility] [address] [id number] [place] [address] February, [facility] [place] [facility] [address] [id number] [place] [address] Nov, [facility] [place] [facility] [address] [id number] [place] [address] Oct, [facility] [place] [facility] [address] [id number], [place] [address] Oct, [facility] [place] [facility] [address] [id number], [place] [address] Oct, [facility] [place] [facility] [address] [id number] [place] [address] Aug, [facility] [place] [facility] [address] [id number] [place] [address] Jul, [facility] [place] [facility] [address] [id number] [place] [address] Sep, [facility] [place] [facility] [id number] [address] 08 Aug, 2010 [facility] [id number] [address] Jul, [facility] [address] [address] 14 Apr, 2010 [facility] [id number] [place] [address] February, [facility] [id number] [place] [address] Sep, [facility] [id number] [place] [address] Sep, [facility] [id number] [place] [address] Sep, [facility] [id number] [place] [address] Apr, [facility] [id number] [address] Mar, [facility] [id number] [place] [address] February, [facility] [address] [address] Jan, [facility] [address] [address] Jul, IMMUNIZATIONS No Known Immunizations SOCIAL HISTORY Never Assessed REASON FOR VISIT [place] [place] VITAL SIGNS MEDICATIONS Unknown Medications RESULTS No Results PROCEDURES No Known procedures INSTRUCTIONS MEDICATIONS ADMINISTERED No Known Medications MEDICAL (GENERAL) HISTORY Type Description Date Medical History 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
--- OUTSIDE RECORDS SUMMARY | 2019-05-04 08:44 | XMS REPORT ---
Author Author TRACEE LANGE Organization [facility] Address [address] [place] [address] Care Team Providers Care Plastic Dolls Mold Filler Name Role Phone TRACEE LANGE Unavailable PROBLEMS Type Condition ICD9-CM Code GUV33-AU Code Onset Dates Condition Status SNOMED Code Problem Thoracic neuritis M54.14 Active 80496308 Problem Lumbar neuritis M54.16 Active 136553069 Problem Hypertension, benign I10 Active 42447092 Problem Mood disorder F39 Active 18475397 Problem Intracranial injury, without loss of consciousness, subsequent encounter S06.9X0D Active 901813014 Problem Seasonal allergic rhinitis, unspecified trigger J30.2 Active 274492238 Problem Cardiomyopathy I42.9 Active 92511682 Problem GERD (gastroesophageal reflux disease) K21.9 Active 164010602 Problem Epileptic seizure, generalized G40.309 Active 66246714 Problem Ventricular arrhythmia I49.9 Active 57727444 ALLERGIES No Information ENCOUNTERS Encounter Location Date Diagnosis [facility] [id number] [place] [address] Jan, [facility] [id number] [place] [address] Jan, Seizures R56.9 [facility] [id number] [place] [address] Dec, Seizures R56.9 [facility] [id number] [place] [address] Nov, Dysuria R30.0 and Urinary tract infection without hematuria, site unspecified N39.0 [facility] [id number] [place] [address] Nov, [facility] [address] [address] Nov, Seizures R56.9 [facility] [id number] [place] [address] Sep, Seizures R56.9 [facility] [address] [address] Sep, Seasonal allergic rhinitis, unspecified trigger J30.2 [facility] [address] [address] Aug, Neck pain on left side M54.2 ; Mood disorder F39 and GERD (gastroesophageal reflux disease) K21.9 [facility] [address] [address] Aug, Seizures R56.9 [facility] [address] [address] Aug, Mood disorder F39 ; Neck pain on left side M54.2 and Hypertension, benign I10 [facility] [address] [address] Aug, [facility] [address] [address] Aug, [facility] [id number] [place] [address] Jul, [facility] [id number] [place] [address] Jul, Hypertension, benign I10 [facility] [id number] [place] [address] Jul, [facility] [address] [address] Jul, Thoracic neuritis M54.14 ; Pain of left leg M79.605 and Pain in right leg M79.604 [facility] [id number] [place] [address] Jun, Seizures R56.9 [facility] [id number] [place] [address] May, [facility] [id number] [place] [address] May, [facility] [id number] [place] [address] May, [facility] [address] [address] May, Seizures R56.9 [facility] [id number] [place] [address] May, [facility] [id number] [place] [address] May, Delirium R41.0 [facility] [id number] [place] [address] Apr, [facility] [id number] [place] [address] February, Ventricular arrhythmia I49.9 [facility] [id number] [place] [address] February, [facility] [id number] [place] [address] Dec, Thoracic neuritis M54.14 ; Lumbar neuritis M54.16 and Epileptic seizure, generalized G40.309 [facility] [id number] [place] [address] Sep, Epileptic seizure, generalized G40.309 and Lumbar neuritis M54.16 [facility] [id number] [place] [address] Aug, Thoracic neuritis M54.14 and Lumbar neuritis M54.16 [facility] [id number] [place] [address] Jun, [facility] [address] [address] Jun, Abscess of leg, left L02.416 [place] [address] [address] May, Lumbar neuritis M54.16 ; Thoracic neuritis M54.14 ; Intracranial injury, without loss of consciousness, subsequent encounter S06.9X0D and Cardiomyopathy I42.9 [place] [address] [address] Apr, Lumbar neuritis M54.16 [place] [address] [address] Apr, [place] [address] [address] Apr, Elevated liver enzymes R74.8 and Renal insufficiency N28.9 [place] [address] [address] Apr, Lumbar neuritis M54.16 ; Thoracic neuritis M54.14 ; Hypertension, benign I10 ; Cardiomyopathy I42.9 and Epileptic seizure, generalized G40.309 [place] [address] [address] Mar, [place] [address] [address] February, [place] [address] [address] February, Lumbar neuritis M54.16 ; Thoracic neuritis M54.14 ; Hypertension, benign I10 ; Cardiomyopathy I42.9 and Epileptic seizure, generalized G40.309 [place] [address] [address] Dec, [place] [address] [address] Sep, Epigastric mass R19.06 [place] [address] [place] [address] Sep, Epigastric mass R19.06 [place] [address] [address] Sep, [place] [address] [address] Sep, Epigastric mass R19.06 [place] [address] [address] Sep, Epigastric mass R19.06 and Lung mass R91.8 [facility] [place] [address] [address] Jul, Shortness of breath R06.02 ; Dysuria R30.0 and Acute bronchitis, unspecified organism J20.9 [place] [address] [address] Jul, [place] [address] [address] Jun, Seizures R56.9 ; Thoracic neuritis M54.14 ; Lumbar neuritis M54.16 and GERD (gastroesophageal reflux disease) K21.9 [facility] [place] [address] [address] Jan, [place] [id number] [place] [address] Sep, [place] [address] [address] Sep, Intracranial injury, without loss of consciousness, subsequent encounter S06.9X0D ; Cardiomyopathy I42.9 ; GERD (gastroesophageal reflux disease) K21.9 ; Hypertension, benign I10 ; Thoracic neuritis M54.14 and Lumbar neuritis M54.16 [place] [id number] [place] [address] Mar, [place] [address] [address] Mar, Coronary atherosclerosis of unspecified type of vessel, [place] or graft 414.00 ; Unspecified essential hypertension 401.9 ; Thoracic or lumbosacral neuritis or radiculitis, unspecified 724.4 and Other convulsions 780.39 [facility] [id number] [address] 14 Jan, 2015 [facility] [id number] [place] [address] Jan, [facility] [id number] [place] [address] Nov, [facility] [id number] [place] [address] Nov, [facility] [id number] [place] [address] Nov, [facility] [id number] [place] [address] Nov, [facility] [id number] [place] [address] Nov, [facility] [id number] [place] [address] Nov, [facility] [id number] [place] [address] Nov, [facility] [id number] [place] [address] Nov, [facility] [address] [address] Nov, [facility] [id number] [place] [address] Nov, [facility] [address] [address] Sep, [facility] [address] [address] Sep, [facility] [place] [facility] [address] [id number] [place] [address] Aug, [facility] [place] [facility] [address] [id number] [place] [address] Aug, [facility] [place] [facility] [address] [id number] [place] [address] Aug, [facility] [place] [facility] [address] [id number] [place] [address] Aug, [facility] [place] [facility] [address] [id number] [place] [address] Jul, [facility] [place] [facility] [address] [id number] [place] [address] Jul, [facility] [place] [facility] [address] [id number] [place] [address] Jul, [facility] [place] [facility] [address] [id number] [place] [address] Jul, [facility] [place] [facility] [address] [id number] [place] [address] Jun, [facility] [place] [facility] [address] [id number] [place] [address] Jun, [facility] [place] [facility] [address] [id number] [place] [address] Jun, [facility] [place] [facility] [address] [id number] [place] [address] May, [facility] [place] [facility] [address] [id number] [place] [address] May, [facility] [place] [facility] [address] [id number] [place] [address] May, [facility] [place] [facility] [address] [id number] [place] [address] May, [facility] [place] [facility] [address] [id number] [place] [address] May, [facility] [place] [facility] [address] [id number] [place] [address] May, [facility] [place] [facility] [address] [id number] [place] [address] May, [facility] [place] [facility] [address] [id number] [place] [address] May, [facility] [place] [facility] [address] [id number] [place] [address] February, [facility] [place] [facility] [address] [id number] [place] [address] February, [facility] [place] [facility] [address] [id number] [place] [address] Jan, [facility] [place] [facility] [address] [id number] [place] [address] Jan, [facility] [place] [facility] [address] [id number] [place] [address] Jan, [facility] [place] [facility] [address] [id number] [place] [address] Jan, [facility] [place] [facility] [address] [id number] [place] [address] Nov, [facility] [place] [facility] [address] [id number] [place] [address] Nov, [facility] [place] [facility] [address] [id number] [place] [address] Nov, [facility] [place] [facility] [address] [id number] [place] [address] Nov, [facility] [place] [facility] [address] [id number] [place] [address] Sep, [facility] [place] [facility] [address] [id number] [place] [address] 18 Sep, 2013 [facility] [address] [id number] [place] [address] 07 Sep, 2013 [facility] [address] [id number] [place] [address] Sep, [facility] [address] [id number] [place] [address] Sep, [facility] [address] [id number] [place] [address] Sep, [facility] [address] [id number] [place] [address] Jul, [facility] [address] [id number] [place] [address] Jul, [facility] [address] [id number] [place] [address] Jun, [facility] [address] [id number] [place] [address] Jun, [facility] [address] [id number] [place] [address] Jun, [facility] [address] [id number] [place] [address] May, [facility] [address] [place] [id number] May, [facility] [address] [id number] [place] [address] May, [facility] [address] [id number] [place] [address] May, [facility] [address] [id number] [place] [address] May, [facility] [address] [id number] [place] [address] May, [facility] [address] [id number] [place] [address] May, [facility] [address] [id number] [place] [address] Apr, [facility] [place] [facility] [address] [id number] [place] [address] Apr, [facility] [address] [id number] [place] [address] Apr, [facility] [address] [id number] [place] [address] Apr, [facility] [address] [id number] [place] [address] Mar, [facility] [address] [id number] [place] [address] February, [facility] [address] [id number] [place] [address] Jan, [facility] [address] [id number] [place] [address] Dec, [facility] [address] [id number] [place] [address] Dec, [facility] [address] [id number] [place] [address] Dec, [facility] [address] [id number] [place] [address] Nov, [facility] [address] [id number] [place] [address] Nov, [facility] [place] [facility] [address] [id number] [place] [address] Nov, [facility] [place] [facility] [address] [id number] [place] [address] Oct, [facility] [place] [facility] [address] [id number] [place] [address] Oct, [facility] [place] [facility] [address] [id number] [place] [address] Sep, [facility] [place] [facility] [address] [id number] [place] [address] Sep, [facility] [place] [facility] [address] [id number] [place] [address] Sep, [facility] [place] [facility] [address] [id number] [place] [address] Sep, [facility] [place] [facility] [address] [id number] [place] [address] Sep, [facility] [place] [facility] [address] [id number] [place] [address] Sep, [facility] [place] [facility] [address] [id number] [place] [address] Aug, [facility] [place] [facility] [address] [id number] [place] [address] Aug, [facility] [place] [facility] [address] [id number] [place] [address] Aug, [facility] [place] [facility] [address] [id number] [place] [address] Aug, [facility] [place] [facility] [address] [id number] [place] [address] Aug, [facility] [place] [facility] [address] [id number] [address] Aug, [facility] [place] [facility] [address] [id number] [place] [address] Aug, [facility] [place] [facility] [address] [id number] [place] [address] Aug, [facility] [place] [facility] [address] [id number] [place] [address] Aug, [facility] [place] [facility] [address] [id number] [place] [address] Aug, [facility] [place] [facility] [address] [id number] [place] [address] Jul, 2011 [facility] [place] [facility] [address] [id number] [place] [address] Jul, [facility] [place] [facility] [address] [id number] [place] [address] Jul, 2011 [facility] [place] [facility] [address] [id number] [place] [address] Jul, [facility] [place] [facility] [address] [id number] [place] [address] Jul, [facility] [place] [facility] [address] [id number] [place] [address] Jul, [facility] [place] [facility] [address] [id number] [place] [address] Jul, [facility] [place] [facility] [address] [id number] [place] [address] Jul, [facility] [place] [facility] [address] [id number] [place] [address] Jul, [facility] [place] [facility] [address] [facility] [id number] [place] [address] Jul, [facility] [place] [facility] [address] [id number] [place] [address] Jul, [facility] [place] [facility] [address] [id number] [address] Jul, 2011 [facility] [place] [facility] [address] [id number] [place] [address] Jul, [facility] [place] [facility] [address] [facility] [id number] [place] [address] Jul, [facility] [place] [facility] [address] [id number], [place] [address] Jul, [facility] [place] [facility] [address] [id number] [place] [address] 28 Jun, 2012 [facility] [place] [facility] [address] [id number] [place] [address] 24 Jun, 2012 [facility] [place] [facility] [address] [id number] [place] [address] 19 Jun, 2012 [facility] [place] [facility] [address] [id number] [place] [address] May, [facility] [place] [facility] [address] [id number] [place] [address] May, [facility] [place] [facility] [address] [id number] [place] [address] Mar, [facility] [place] [facility] [address] [id number] [place] [address] Mar, [facility] [place] [facility] [address] [id number] [place] [address] February, [facility] [place] [facility] [address] [id number] [place] [address] February, [facility] [place] [facility] [address] [id number] [place] [address] Nov, [facility] [place] [facility] [address] [id number] [place] [address] Oct, [facility] [place] [facility] [address] [id number] [place] [address] Oct, [facility] [place] [facility] [address] [id number] [place] [address] Oct, [facility] [place] [facility] [address] [id number] [place] [address] Aug, [facility] [place] [facility] [address] [id number] [place] [address] 17 Jul, 2011 [facility] [place] [facility] [address] [id number] [address] Sep, [facility] [id number] [address] Aug, [facility] [id number] [address] Jul, [facility] [id number] [address] Apr, [facility] [id number] [address] February, [facility] [id number] [address] Sep, [facility] [id number] [address] Sep, [facility] [id number] [address] Sep, [facility] [id number] [address] Apr, [facility] [id number] [address] Mar, [facility] [id number] [address] February, [facility] [id number] [address] Jan, [facility] [id number] [address] Jul, IMMUNIZATIONS No Known Immunizations SOCIAL HISTORY Never Assessed REASON FOR VISIT PLAN OF CARE VITAL SIGNS Height 63 in 2014-11-28 Weight 174.1 lbs 2014-11-28 Temperature 97.8 degrees Fahrenheit 2014-11-28 Heart Rate 100 bpm 2014-11-28 Respiratory Rate 20 2014-11-28 Blood pressure systolic 118 mmHg 2014-11-28 Blood pressure diastolic 82 mmHg 2014-11-28 MEDICATIONS Unknown Medications RESULTS No Results PROCEDURES Procedure Date Ordered Result Body Site INJ KETOROLAC TROMETHAMINE 15 MG Nov 28, 2014 MEASURE BLOOD OXYGEN LEVEL Nov 28, 2014 INSTRUCTIONS MEDICATIONS ADMINISTERED No Known Medications MEDICAL (GENERAL) HISTORY Type Description Date Medical History 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
--- OUTSIDE RECORDS SUMMARY | 2019-05-04 08:45 | XMS REPORT ---
Author Author Migration, Doctor Organization 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 Name Role Phone Migration, Doctor Unavailable Unavailable PROBLEMS Type Condition ICD9-CM Code LVS13-XT Code Onset Dates Condition Status SNOMED Code Problem Thoracic neuritis M54.14 Active 50362082 Problem Lumbar neuritis M54.16 Active 280764686 Problem Hypertension, benign I10 Active 10991238 Problem Mood disorder F39 Active 49087281 Problem Intracranial injury, without loss of consciousness, subsequent encounter S06.9X0D Active 051466733 Problem Seasonal allergic rhinitis, unspecified trigger J30.2 Active 098498631 Problem Cardiomyopathy I42.9 Active 92842881 Problem GERD (gastroesophageal reflux disease) K21.9 Active 269651663 Problem Epileptic seizure, generalized G40.309 Active 92211735 Problem Ventricular arrhythmia I49.9 Active 74061174 ALLERGIES No Information ENCOUNTERS Encounter Location Date Diagnosis [facility] [id number] [place] [address] Jan, Seizures R56.9 [facility] [id number] [place] [address] Dec, Seizures R56.9 [facility] WALK IN [facility] [id number] [place] [address] Nov, Dysuria R30.0 and Urinary tract infection without hematuria, site unspecified N39.0 [facility] [id number] [place] [address] Nov, [facility] [id number] [place] [address] Nov, Seizures R56.9 [facility] [id number] [place] [address] Sep, Seizures R56.9 [facility] [id number] [place] [address] Sep, Seasonal allergic rhinitis, unspecified trigger J30.2 [facility] [id number] [place] [address] Aug, Neck pain on left side M54.2 ; Mood disorder F39 and GERD (gastroesophageal reflux disease) K21.9 [facility] [address] [address] Aug, Seizures R56.9 [facility] [id number] [place] [address] Aug, Mood disorder F39 ; Neck pain on left side M54.2 and Hypertension, benign I10 [facility] [id number] [place] [address] Aug, [facility] [address] [address] Aug, [facility] [id number] [place] [address] Jul, [facility] [id number] [place] [address] Jul, Hypertension, benign I10 [facility] [id number] [place] [address] Jul, [facility] [id number] [place] [address] Jul, Thoracic neuritis M54.14 ; Pain of left leg M79.605 and Pain in right leg M79.604 [facility] [id number] [place] [address] Jun, Seizures R56.9 [facility] [id number] [place] [address] May, [facility] [address] [address] May, [facility] [id number] [place] [address] May, [facility] [address] [address] May, Seizures R56.9 [facility] [address] [address] May, [facility] [address] [address] May, Delirium R41.0 [facility] [address] [address] Apr, [facility] [address] [address] February, Ventricular arrhythmia I49.9 [facility] [address] [address] February, [facility] [id number] [place] [address] Dec, Thoracic neuritis M54.14 ; Lumbar neuritis M54.16 and Epileptic seizure, generalized G40.309 [facility] [id number] [place] [address] Sep, Epileptic seizure, generalized G40.309 and Lumbar neuritis M54.16 [facility] [id number] [place] [address] Aug, Thoracic neuritis M54.14 and Lumbar neuritis M54.16 [facility] [id number] [place] [address] Jun, [facility] [address] [address] Jun, Abscess of leg, left L02.416 [facility] [address] [address] May, Lumbar neuritis M54.16 ; Thoracic neuritis M54.14 ; Intracranial injury, without loss of consciousness, subsequent encounter S06.9X0D and Cardiomyopathy I42.9 [address] [place] [address] [address] Apr, Lumbar neuritis M54.16 [place] [address] [address] Apr, [place] [address] [address] Apr, Elevated liver enzymes R74.8 and Renal insufficiency N28.9 [place] [address] [address] Apr, Lumbar neuritis M54.16 ; Thoracic neuritis M54.14 ; Hypertension, benign I10 ; Cardiomyopathy I42.9 and Epileptic seizure, generalized G40.309 [place] [address] [address] Mar, [place] [address] [address] February, [place] [address] [address] February, Lumbar neuritis M54.16 ; Thoracic neuritis M54.14 ; Hypertension, benign I10 ; Cardiomyopathy I42.9 and Epileptic seizure, generalized G40.309 [place] [address] [address] Dec, [place] [address] [address] Sep, Epigastric mass R19.06 [place] [address] [address] Sep, Epigastric mass R19.06 [place] [address] [address] Sep, [place] [id number] [place] [address] Sep, Epigastric mass R19.06 [place] [address] [address] Sep, Epigastric mass R19.06 and Lung mass R91.8 [facility] [place] [address] [address] Jul, Shortness of breath R06.02 ; Dysuria R30.0 and Acute bronchitis, unspecified organism J20.9 [place] [address] [address] Jul, [place] [address] [address] Jun, Seizures R56.9 ; Thoracic neuritis M54.14 ; Lumbar neuritis M54.16 and GERD (gastroesophageal reflux disease) K21.9 [facility] [id number] [place] [address] Jan, [place] [address] [address] Sep, [place] [id number] [place] [address] Sep, Intracranial injury, without loss of consciousness, subsequent encounter S06.9X0D ; Cardiomyopathy I42.9 ; GERD (gastroesophageal reflux disease) K21.9 ; Hypertension, benign I10 ; Thoracic neuritis M54.14 and Lumbar neuritis M54.16 [place] [address] [address] Mar, [place] [address] [address] Mar, Coronary atherosclerosis of unspecified type of vessel, chickaloon or graft 414.00 ; Unspecified essential hypertension 401.9 ; Thoracic or lumbosacral neuritis or radiculitis, unspecified 724.4 and Other convulsions 780.39 [facility] [id number] [place] [address] 14 Jan, 2015 [facility] [id number] [address] 13 Jan, 2015 [facility] [address] [address] Nov, 2014 [facility] [place] [facility] [address] [facility] [id number] [address] Nov, 2014 [facility] [place] [facility] [id number] [place] [address], [place] [address] Nov, 2014 [facility] [place] [facility] [id number] [address] Nov, 2014 [facility] [address] [address] 16 Nov, 2014 [facility] [place] [facility] [address] [address] Nov, 2014 [facility] [address] [address] Nov, 2014 [facility] [address] [address] Nov, 2014 [facility] [address] [address] Nov, 2014 [facility] [place] [facility] [address] [address] Nov, 2014 [facility] [place] [facility] [address] [address] Sep, [facility] [place] [facility] [address] [address] Sep, [facility] [place] [facility] [address] [address] Aug, [facility] [place] [facility] [address] [id number] [place] [address] Aug, [facility] [place] [facility] [address] [id number] [place] [address] Aug, [facility] [place] [facility] [address] [id number] [place] [address] Aug, [facility] [place] [facility] [address] [id number] [place] [address] Jul, [facility] [place] [facility] [address] [id number] [place] [address] Jul, [facility] [place] [facility] [address] [id number] [place] [address] Jul, [facility] [place] [facility] [address] [id number] [place] [address] Jul, [facility] [place] [facility] [address] [id number] [place] [address] Jun, [facility] [place] [facility] [address] [id number] [place] [address] Jun, [facility] [place] [facility] [address] [id number] [place] [address] Jun, [facility] [place] [facility] [address] [id number] [place] [address] May, [facility] [place] [facility] [address] [id number] [place] [address] May, [facility] [place] [facility] [address] [id number] [place] [address] May, [facility] [place] [facility] [address] [id number] [place] [address] May, [facility] [place] [facility] [address] [id number] [place] [address] May, [facility] [place] [facility] [address] [id number] [address] May, [facility] [place] [facility] [address] [id number] [place] [address] May, [facility] [place] [facility] [address] [id number] [place] [address] May, [facility] [place] [facility] [address] [id number] [place] [address] February, [facility] [place] [facility] [address] [id number] [place] [address] February, [facility] [place] [facility] [address] [id number] [place] [address] Jan, [facility] [place] [facility] [address] [id number] [place] [address] Jan, [facility] [place] [facility] [address] [facility] [id number] [place] [address] Jan, [facility] [place] [facility] [address] [facility] [id number] [place] [address] Jan, [facility] [place] [facility] [address] [facility] [id number] [place] [address] Nov, [facility] [place] [facility] [address] [facility] [id number] [place] [address] Nov, [facility] [place] [facility] [address] [id number] [place] [address] Nov, [facility] [place] [facility] [address] [facility] [id number] [place] [address] Nov, [facility] [place] [facility] [address] [id number] [place] [address] Sep, [facility] [place] [facility] [address] [id number] [place] [address] Sep, [facility] [place] [facility] [address] [facility] [id number] [address] Sep, [facility] [place] [facility] [address] [id number] [place] [address] Sep, [facility] [address] [id number] [place] [address] Sep, [facility] [address] [id number] [place] [address] Sep, [facility] [address] [id number] [place] [address] Jul, [facility] [address] [id number] [place] [address] Jul, [facility] [address] [id number] [place] [address] Jun, [facility] [address] [id number] [place] [address] Jun, [facility] [address] [id number] [place] [address] Jun, [facility] [address] [id number] [place] [address] May, [facility] [address] [place] [id number] May, [facility] [address] [id number] [place] [address] May, [facility] [address] [id number] [place] [address] May, [facility] [address] [id number] [place] [address] May, [facility] [address] [id number] [place] [address] May, [facility] [address] [id number] [place] [address] May, [facility] [address] [id number] [place] [address] Apr, [facility] [address] [id number] [place] [address] 30 Apr, 2013 [facility] [address] [id number] [place] [address] Apr, [facility] [address] [id number] [place] [address] Apr, [facility] [place] [facility] [address] [id number] [place] [address] Mar, [facility] [address] [id number] [place] [address] February, [facility] [address] [id number] [place] [address] Jan, [facility] [address] [id number] [place] [address] Dec, [facility] [address] [id number] [place] [address] Dec, [facility] [address] [id number] [place] [address] Dec, [facility] [address] [id number] [place] [address] Nov, [facility] [place] [facility] [address] [id number] [place] [address] Nov, [facility] [place] [facility] [address] [id number] [place] [address] Nov, [facility] [place] [facility] [address] [id number] [place] [address] Oct, [facility] [place] [facility] [address] [id number] [place] [address] Oct, [facility] [place] [facility] [address] [id number] [place] [address] Sep, [facility] [place] [facility] [address] [id number] [place] [address] Sep, [facility] [place] [facility] [address] [id number] [place] [address] Sep, [facility] [place] [facility] [address] [id number] [place] [address] Sep, [facility] [place] [facility] [address] [id number] [place] [address] Sep, [facility] [place] [facility] [address] [id number] [place] [address] Sep, [facility] [place] [facility] [address] [id number] [place] [address] Aug, [facility] [place] [facility] [address] [id number] [place] [address] Aug, [facility] [place] [facility] [address] [id number] [place] [address] Aug, [facility] [place] [facility] [address] [id number] [place] [address] Aug, [facility] [place] [facility] [address] [id number] [place] [address] Aug, [facility] [place] [facility] [address] [id number] [place] [address] Aug, [facility] [place] [facility] [address] [id number] [place] [address] Aug, [facility] [place] [facility] [address] [id number] [address] Aug, [facility] [place] [facility] [address] [id number] [place] [address] Aug, [facility] [place] [facility] [address] [id number] [place] [address] Aug, [facility] [place] [facility] [address] [id number] [place] [address] Jul, [facility] [place] [facility] [address] [id number] [place] [address] 29 Jul, 2012 [facility] [place] [facility] [address] [id number] [place] [address] Jul, [facility] [place] [facility] [address] [id number] [place] [address] Jul, [facility] [place] [facility] [address] [id number] [place] [address] Jul, [facility] [place] [facility] [address] [id number] [place] [address] 24 Jul, 2012 [facility] [place] [facility] [address] [id number] [place] [address] Jul, [facility] [place] [facility] [address] [id number] [place] [address] Jul, [facility] [place] [facility] [address] [id number] [place] [address] Jul, [facility] [place] [facility] [address] [id number] [place] [address] Jul, [facility] [place] [facility] [address] [id number] [place] [address] Jul, [facility] [place] [facility] [address] [id number] [place] [address] Jul, [facility] [place] [facility] [address] [id number] [place] [address] Jul, [facility] [place] [facility] [address] [id number] [place] [address] Jul, [facility] [place] [facility] [address] [id number] [place] [address] Jul, [facility] [place] [facility] [address] [id number] [place] [address] Jun, [facility] [place] [facility] [address] [id number] [place] [address] 24 Jun, 2012 [facility] [place] [facility] [address] [id number] [place] [address] Jun, [facility] [place] [facility] [address] [id number] [place] [address] May, [facility] [place] [facility] [address] [id number] [place] [address] May, [facility] [place] [facility] [address] [id number] [place] [address] Mar, [facility] [place] [facility] [address] [id number] [place] [address] Mar, [facility] [place] [facility] [address] [id number] [place] [address] February, [facility] [place] [facility] [address] [id number] [place] [address] February, [facility] [place] [facility] [address] [id number] [place] [address] Nov, [facility] [place] [facility] [address] [id number] [place] [address] Oct, [facility] [place] [facility] [address] [id number] [place] [address] Oct, [facility] [place] [facility] [address] [id number] [address] Oct, [facility] [place] [facility] [address] [id number] [address] Aug, [facility] [place] [facility] [address] [id number] [place] [address] Jul, [facility] [place] [facility] [address] [id number] [place] [address] Sep, [facility] [place] [facility] [address] [id number] [place] [address] Aug, [facility] [place] [facility] [id number] [address] Jul, [facility] [id number] [address] Apr, [facility] [id number] [address] February, [facility] [id number] [address] Sep, [facility] [id number] [place] [address] Sep, [facility] [id number] [place] [address] Sep, [facility] [id number] [place] [address] Apr, [facility] [id number] [place] [address] Mar, [facility] [id number] [address] February, [facility] [id number] [place] [address] Jan, [facility] [id number] [address] Jul, IMMUNIZATIONS No Known Immunizations SOCIAL HISTORY Never Assessed REASON FOR VISIT [facility] PLAN OF CARE VITAL SIGNS MEDICATIONS Unknown Medications RESULTS No Results PROCEDURES No Known procedures INSTRUCTIONS MEDICATIONS ADMINISTERED No Known Medications MEDICAL (GENERAL) HISTORY Type Description Date Medical History 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
--- OUTSIDE RECORDS SUMMARY | 2019-05-04 08:45 | XMS REPORT ---
Author Author Migration, Doctor Organization [facility] Address Unknown Phone Unavailable Care Team Providers Care Social Insurance Analyst Name Role Phone Migration, Doctor Unavailable Unavailable PROBLEMS Type Condition ICD9-CM Code [id number] Code Onset Dates Condition Status SNOMED Code Problem Thoracic neuritis M54.14 Active 89453075 Problem Lumbar neuritis M54.16 Active 876347388 Problem Hypertension, benign I10 Active 64592922 Problem Mood disorder F39 Active 86698488 Problem Intracranial injury, without loss of consciousness, subsequent encounter S06.9X0D Active 711711277 Problem Seasonal allergic rhinitis, unspecified trigger J30.2 Active 511636043 Problem Cardiomyopathy I42.9 Active 68269953 Problem GERD (gastroesophageal reflux disease) K21.9 Active 263736302 Problem Epileptic seizure, generalized G40.309 Active 79670592 Problem Ventricular arrhythmia I49.9 Active 98440995 ALLERGIES No Information ENCOUNTERS Encounter Location Date Diagnosis [facility] [id number] [place] [address] Jan, [facility] [id number] [place] [address] Jan, Seizures R56.9 [facility] [id number] [place] [address] Dec, Seizures R56.9 [facility] [address] [address] Nov, Dysuria R30.0 and Urinary tract infection without hematuria, site unspecified N39.0 [facility] [id number] [place] [address] Nov, [facility] [address] [place] [address] Nov, Seizures R56.9 [facility] [id number] [place] [address] 27 Sep, 2018 Seizures R56.9 [facility] [address] [address] Sep, Seasonal allergic rhinitis, unspecified trigger J30.2 [facility] [address] [address] Aug, Neck pain on left side M54.2 ; Mood disorder F39 and GERD (gastroesophageal reflux disease) K21.9 [facility] [address] [address] Aug, Seizures R56.9 [facility] [address] [address] Aug, Mood disorder F39 ; Neck pain on left side M54.2 and Hypertension, benign I10 [facility] [address] [address] Aug, [facility] [id number] [place] [address] Aug, [facility] [address] [address] Jul, [facility] [id number] [place] [address] Jul, Hypertension, benign I10 [facility] [id number] [place] [address] Jul, [facility] [id number] [place] [address] Jul, Thoracic neuritis M54.14 ; Pain of left leg M79.605 and Pain in right leg M79.604 [facility] [id number] [place] [address] Jun, Seizures R56.9 [facility] [address] [address] May, [facility] [id number] [place] [address] May, [facility] [id number] [place] [address] May, [facility] [id number] [place] [address] May, Seizures R56.9 [facility] [address] [address] May, [facility] [id number] [place] [address] May, Delirium R41.0 [facility] [id number] [place] [address] Apr, [facility] [address] [address] February, Ventricular arrhythmia I49.9 [facility] [id number] [place] [address] February, [facility] [id number] [place] [address] Dec, Thoracic neuritis M54.14 ; Lumbar neuritis M54.16 and Epileptic seizure, generalized G40.309 [facility] [id number] [place] [address] Sep, Epileptic seizure, generalized G40.309 and Lumbar neuritis M54.16 [facility] [id number] [place] [address] Aug, Thoracic neuritis M54.14 and Lumbar neuritis M54.16 [facility] [id number] [place] [address] Jun, [facility] [id number] [place] [address] Jun, Abscess of leg, left L02.416 [facility] [id number] [place] [address] May, Lumbar neuritis M54.16 ; Thoracic neuritis M54.14 ; Intracranial injury, without loss of consciousness, subsequent encounter S06.9X0D and Cardiomyopathy I42.9 [facility] [id number] [place] [address] Apr, Lumbar neuritis M54.16 [facility] [id number] [place] [address] Apr, [place] [address] [address] Apr, Elevated liver enzymes R74.8 and Renal insufficiency N28.9 [place] [id number] [place] [address] Apr, Lumbar neuritis M54.16 ; Thoracic neuritis M54.14 ; Hypertension, benign I10 ; Cardiomyopathy I42.9 and Epileptic seizure, generalized G40.309 [place] [id number] [place] [address] Mar, [place] [address] [address] February, [place] [id number] [place] [address] February, Lumbar neuritis M54.16 ; Thoracic neuritis M54.14 ; Hypertension, benign I10 ; Cardiomyopathy I42.9 and Epileptic seizure, generalized G40.309 [facility] [id number] [place] [address] Dec, [place] [address] [address] Sep, Epigastric mass R19.06 [place] [id number] [place] [address] Sep, Epigastric mass R19.06 [facility] [id number] [place] [address] Sep, [facility] [address] [address] Sep, Epigastric mass R19.06 [facility] [address] [address] Sep, Epigastric mass R19.06 and Lung mass R91.8 [facility] [address] [address] Jul, Shortness of breath R06.02 ; Dysuria R30.0 and Acute bronchitis, unspecified organism J20.9 [place] [address] [address] Jul, [place] [address] [address] Jun, Seizures R56.9 ; Thoracic neuritis M54.14 ; Lumbar neuritis M54.16 and GERD (gastroesophageal reflux disease) K21.9 [facility] [address] [address] Jan, [place] [address] [address] Sep, [place] [address] [address] Sep, Intracranial injury, without loss of consciousness, subsequent encounter S06.9X0D ; Cardiomyopathy I42.9 ; GERD (gastroesophageal reflux disease) K21.9 ; Hypertension, benign I10 ; Thoracic neuritis M54.14 and Lumbar neuritis M54.16 [place] [id number] [place] [address] Mar, [place] [address] [address] Mar, Coronary atherosclerosis of unspecified type of vessel, [place] or graft 414.00 ; Unspecified essential hypertension 401.9 ; Thoracic or lumbosacral neuritis or radiculitis, unspecified 724.4 and Other convulsions 780.39 [facility] [address] [address] 14 Jan, 2015 [facility] [id number] [place] [address] Jan, [facility] [id number] [place] [address] Nov, [facility] [id number] [place] [address] Nov, [facility] [id number] [place] [address] Nov, [facility] [id number] [place] [address] Nov, [facility] [address] [address] Nov, [facility] [id number] [place] [address] Nov, [facility] [address] [address] Nov, [facility] [address] [address] Nov, [facility] [address] [address] Nov, [facility] [address] [place] [address] Nov, [facility] [address] [address] Sep, [facility] [address] [place] [address] Sep, [facility] [place] [facility] [address] [id number] [place] [address] Aug, [facility] [place] [facility] [address] [id number] [place] [address] Aug, [facility] [place] [facility] [address] [id number] [place] [address] Aug, [facility] [place] [facility] [address] [id number] [place] [address] Aug, [facility] [place] [facility] [address] [id number] [place] [address] Jul, [facility] [place] [facility] [address] [id number] [place] [address] Jul, [facility] [place] [facility] [address] [id number] [place] [address] Jul, [facility] [place] [facility] [address] [id number] [place] [address] Jul, [facility] [place] [facility] [address] [id number] [place] [address] Jun, [facility] [place] [facility] [address] [id number] [place] [address] Jun, [facility] [place] [facility] [address] [id number] [place] [address] Jun, [facility] [place] [facility] [address] [id number] [address] May, [facility] [place] [facility] [address] [id number] [place] [address] May, [facility] [place] [facility] [address] [id number] [place] [address] May, [facility] [place] [facility] [address] [id number] [place] [address] May, [facility] [place] [facility] [address] [id number] [address] May, [facility] [place] [facility] [address] [id number] [place] [address] May, [facility] [place] [facility] [address] [id number] [place] [address] May, [facility] [place] [facility] [address] [id number] [place] [address] May, [facility] [place] [facility] [address] [id number] [place] [address] February, [facility] [place] [facility] [address] [id number] [place] [address] February, [facility] [place] [facility] [address] [id number] [place] [address] Jan, [facility] [place] [facility] [address] [id number] [place] [address] Jan, [facility] [place] [facility] [address] [id number] [place] [address] Jan, [facility] [place] [facility] [address] [id number] [place] [address] Jan, [facility] [place] [facility] [address] [facility] [id number] [place] [address] Nov, [facility] [place] [facility] [address] [id number] [place] [address] Nov, [facility] [place] [facility] [address] [id number] [place] [address] Nov, [facility] [place] [facility] [address] [id number] [place] [address] Nov, [facility] [place] [facility] [address] [id number] [place] [address] Sep, [facility] [place] [facility] [address] [id number] [place] [address] Sep, [facility] [place] [facility] [address] [id number] [place] [address] 07 Sep, 2013 [facility] [address] [id number] [place] [address] Sep, [facility] [address] [id number] [place] [address] Sep, [facility] [address] [id number] [place] [address] Sep, [facility] [address] [id number] [place] [address] Jul, [facility] [address] [id number] [place] [address] Jul, [facility] [address] [id number] [place] [address] Jun, [facility] [address] [id number] [place] [address] Jun, [facility] [address] [id number] [place] [address] Jun, [facility] [address] [id number] [place] [address] May, [facility] [address] [place] [id number] May, [facility] [address] [id number] [place] [address] May, [facility] [address] [id number] [place] [address] May, [facility] [address] [id number] [place] [address] May, [facility] [address] [id number] [place] [address] May, [facility] [address] [id number] [place] [address] May, [facility] [address] [id number] [place] [address] Apr, [facility] [place] [facility] [address] [id number] [place] [address] Apr, [facility] [place] [facility] [address] [id number] [place] [address] Apr, [facility] [place] [facility] [address] [id number] [place] [address] Apr, [facility] [address] [id number] [place] [address] Mar, [facility] [place] [facility] [address] [id number] [place] [address] February, [facility] [address] [id number] [place] [address] Jan, [facility] [address] [id number] [place] [address] Dec, [facility] [place] [facility] [address] [id number] [place] [address] Dec, [facility] [place] [facility] [address] [id number] [place] [address] Dec, [facility] [place] [facility] [address] [id number] [place] [address] Nov, [facility] [place] [facility] [address] [id number] [place] [address] Nov, [facility] [place] [facility] [address] [id number] [place] [address] Nov, [facility] [place] [facility] [address] [id number] [place] [address] Oct, [facility] [place] [facility] [address] [id number] [place] [address] Oct, [facility] [place] [facility] [address] [id number] [place] [address] 05 Sep, 2012 [facility] [place] [facility] [address] [id number] [place] [address] Sep, [facility] [place] [facility] [address] [id number] [place] [address] Sep, [facility] [place] [facility] [address] [id number] [place] [address] Sep, [facility] [place] [facility] [address] [id number] [place] [address] Sep, [facility] [place] [facility] [address] [id number] [place] [address] Sep, [facility] [place] [facility] [address] [id number] [place] [address] Aug, [facility] [place] [facility] [address] [id number] [place] [address] Aug, [facility] [place] [facility] [address] [id number] [place] [address] Aug, [facility] [place] [facility] [address] [id number] [place] [address] Aug, [facility] [place] [facility] [address] [id number] [place] [address] Aug, [facility] [place] [facility] [address] [id number] [place] [address] Aug, [facility] [place] [facility] [address] [id number], [place] [address] Aug, [facility] [place] [facility] [address] [id number] [place] [address] Aug, [facility] [place] [facility] [address] [id number] [place] [address] Aug, [facility] [place] [facility] [address] [id number] [place] [address] Aug, [facility] [place] [facility] [address] [id number] [place] [address] Jul, 2011 [facility] [place] [facility] [address] [id number] [place] [address] Jul, [facility] [place] [facility] [address] [id number] [place] [address] Jul, 2011 [facility] [place] [facility] [address] [id number] [place] [address] Jul, [facility] [place] [facility] [address] [id number] [place] [address] Jul, [facility] [place] [facility] [address] [id number] [place] [address] Jul, [facility] [place] [facility] [address] [id number] [place] [address] Jul, [facility] [place] [facility] [address] [id number] [place] [address] Jul, [facility] [place] [facility] [address] [id number] [place] [address] Jul, [facility] [place] [facility] [address] [id number] [place] [address] Jul, [facility] [place] [facility] [address] [id number] [place] [address] Jul, [facility] [place] [facility] [address] [id number] [place] [address] Jul, [facility] [place] [facility] [address] [id number] [place] [address] Jul, [facility] [place] [facility] [address] [id number] [place] [address] Jul, [facility] [place] [facility] [address] [id number] [place] [address] Jul, [facility] [place] [facility] [address] [id number] [place] [address] 28 Jun, 2012 [facility] [place] [facility] [address] [id number] [place] [address] 24 Jun, 2012 [facility] [place] [facility] [address] [id number] [place] [address] Jun, [facility] [place] [facility] [address] [id number] [place] [address] May, [facility] [place] [facility] [address] [id number] [place] [address] May, [facility] [place] [facility] [address] [id number] [place] [address] Mar, [facility] [place] [facility] [address] [id number] [place] [address] Mar, [facility] [place] [facility] [address] [id number] [place] [address] February, [facility] [place] [facility] [address] [id number] [place] [address] February, [facility] [place] [facility] [address] [id number] [place] [address] Nov, [facility] [place] [facility] [address] [id number] [place] [address] Oct, [facility] [place] [facility] [address] [id number], [place] [address] Oct, [facility] [place] [facility] [address] [id number], [place] [address] Oct, [facility] [place] [facility] [address] [id number] [place] [address] Aug, [facility] [place] [facility] [address] [id number] [place] [address] Jul, [facility] [place] [facility] [address] [id number] [place] [address] Sep, [facility] [place] [facility] [address] [address] 08 Aug, 2010 [facility] [id number] [address] Jul, [facility] [id number] [address] 14 Apr, 2010 [facility] [id number] [place] [address] February, [facility] [id number] [place] [address] Sep, [facility] [id number] [place] [id number] Sep, [facility] [id number] [place] [id number] Sep, [facility] [id number] [place] [address] Apr, [facility] [id number] [address] Mar, [facility] [id number] [place] [id number] February, [facility] [id number] [address] Jan, [facility] [id number] [place] [address] Jul, IMMUNIZATIONS No Known Immunizations SOCIAL HISTORY Never Assessed REASON FOR VISIT EMR-[facility] PLAN OF CARE VITAL SIGNS MEDICATIONS Unknown Medications RESULTS No Results PROCEDURES No Known procedures INSTRUCTIONS MEDICATIONS ADMINISTERED No Known Medications MEDICAL (GENERAL) HISTORY Type Description Date Medical History 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
--- OUTSIDE RECORDS SUMMARY | 2019-05-04 08:45 | XMS REPORT ---
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 Name Role Phone Migration, Doctor Unavailable Unavailable PROBLEMS Type Condition ICD9-CM Code FGY43-YA Code Onset Dates Condition Status SNOMED Code Problem Thoracic neuritis M54.14 Active 56631815 Problem Lumbar neuritis M54.16 Active 444481482 Problem Hypertension, benign I10 Active 20695531 Problem Mood disorder F39 Active 12325567 Problem Intracranial injury, without loss of consciousness, subsequent encounter S06.9X0D Active 386478620 Problem Seasonal allergic rhinitis, unspecified trigger J30.2 Active 052970963 Problem Cardiomyopathy I42.9 Active 43923763 Problem GERD (gastroesophageal reflux disease) K21.9 Active 800413152 Problem Epileptic seizure, generalized G40.309 Active 85102315 Problem Ventricular arrhythmia I49.9 Active 27118623 ALLERGIES No Information ENCOUNTERS Encounter Location Date Diagnosis [facility] [id number] [place] [address] Jan, [facility] [id number] [place] [address] Jan, Seizures R56.9 [facility] [id number] [place] [address] Dec, Seizures R56.9 [facility] [address] [address] Nov, Dysuria R30.0 and Urinary tract infection without hematuria, site unspecified N39.0 [facility] [id number] [place] [address] Nov, [facility] [address] [place] [address] Nov, Seizures R56.9 [facility] [id number] [place] [address] 27 Sep, 2018 Seizures R56.9 [facility] [address] [address] Sep, Seasonal allergic rhinitis, unspecified trigger J30.2 [facility] [address] [address] Aug, Neck pain on left side M54.2 ; Mood disorder F39 and GERD (gastroesophageal reflux disease) K21.9 [facility] [address] [address] Aug, Seizures R56.9 [facility] [address] [address] Aug, Mood disorder F39 ; Neck pain on left side M54.2 and Hypertension, benign I10 [facility] [address] [address] Aug, [facility] [id number] [place] [address] Aug, [facility] [address] [address] Jul, [facility] [id number] [place] [address] Jul, Hypertension, benign I10 [facility] [id number] [place] [address] Jul, [facility] [id number] [place] [address] Jul, Thoracic neuritis M54.14 ; Pain of left leg M79.605 and Pain in right leg M79.604 [facility] [id number] [place] [address] Jun, Seizures R56.9 [facility] [address] [address] May, [facility] [id number] [place] [address] May, [facility] [id number] [place] [address] May, [facility] [id number] [place] [address] May, Seizures R56.9 [facility] [address] [address] May, [facility] [id number] [place] [address] May, Delirium R41.0 [facility] [id number] [place] [address] Apr, [facility] [address] [address] February, Ventricular arrhythmia I49.9 [facility] [id number] [place] [address] February, [facility] [id number] [place] [address] Dec, Thoracic neuritis M54.14 ; Lumbar neuritis M54.16 and Epileptic seizure, generalized G40.309 [facility] [id number] [place] [address] Sep, Epileptic seizure, generalized G40.309 and Lumbar neuritis M54.16 [facility] [id number] [place] [address] Aug, Thoracic neuritis M54.14 and Lumbar neuritis M54.16 [facility] [id number] [place] [address] Jun, [facility] [id number] [place] [address] Jun, Abscess of leg, left L02.416 [facility] [id number] [place] [address] May, Lumbar neuritis M54.16 ; Thoracic neuritis M54.14 ; Intracranial injury, without loss of consciousness, subsequent encounter S06.9X0D and Cardiomyopathy I42.9 [facility] [id number] [place] [address] Apr, Lumbar neuritis M54.16 [facility] [id number] [place] [address] Apr, [place] [address] [address] Apr, Elevated liver enzymes R74.8 and Renal insufficiency N28.9 [place] [id number] [place] [address] Apr, Lumbar neuritis M54.16 ; Thoracic neuritis M54.14 ; Hypertension, benign I10 ; Cardiomyopathy I42.9 and Epileptic seizure, generalized G40.309 [place] [id number] [place] [address] Mar, [place] [address] [address] February, [place] [id number] [place] [address] February, Lumbar neuritis M54.16 ; Thoracic neuritis M54.14 ; Hypertension, benign I10 ; Cardiomyopathy I42.9 and Epileptic seizure, generalized G40.309 [facility] [id number] [place] [address] Dec, [place] [address] [address] Sep, Epigastric mass R19.06 [place] [id number] [place] [address] Sep, Epigastric mass R19.06 [facility] [id number] [place] [address] Sep, [facility] [address] [address] Sep, Epigastric mass R19.06 [facility] [address] [address] Sep, Epigastric mass R19.06 and Lung mass R91.8 [facility] [address] [address] Jul, Shortness of breath R06.02 ; Dysuria R30.0 and Acute bronchitis, unspecified organism J20.9 [place] [address] [address] Jul, [place] [address] [address] Jun, Seizures R56.9 ; Thoracic neuritis M54.14 ; Lumbar neuritis M54.16 and GERD (gastroesophageal reflux disease) K21.9 [facility] [address] [address] Jan, [place] [address] [address] Sep, [place] [address] [address] Sep, Intracranial injury, without loss of consciousness, subsequent encounter S06.9X0D ; Cardiomyopathy I42.9 ; GERD (gastroesophageal reflux disease) K21.9 ; Hypertension, benign I10 ; Thoracic neuritis M54.14 and Lumbar neuritis M54.16 [place] [id number] [place] [address] Mar, [place] [address] [address] Mar, Coronary atherosclerosis of unspecified type of vessel, [place] or graft 414.00 ; Unspecified essential hypertension 401.9 ; Thoracic or lumbosacral neuritis or radiculitis, unspecified 724.4 and Other convulsions 780.39 [facility] [address] [address] 14 Jan, 2015 [facility] [id number] [place] [address] Jan, [facility] [id number] [place] [address] Nov, [facility] [id number] [place] [address] Nov, [facility] [id number] [place] [address] Nov, [facility] [id number] [place] [address] Nov, [facility] [address] [address] Nov, [facility] [id number] [place] [address] Nov, [facility] [address] [address] Nov, [facility] [address] [address] Nov, [facility] [address] [address] Nov, [facility] [address] [place] [address] Nov, [facility] [address] [address] Sep, [facility] [address] [place] [address] Sep, [facility] [place] [facility] [address] [id number] [place] [address] Aug, [facility] [place] [facility] [address] [id number] [place] [address] Aug, [facility] [place] [facility] [address] [id number] [place] [address] Aug, [facility] [place] [facility] [address] [id number] [place] [address] Aug, [facility] [place] [facility] [address] [id number] [place] [address] Jul, [facility] [place] [facility] [address] [id number] [place] [address] Jul, [facility] [place] [facility] [address] [id number] [place] [address] Jul, [facility] [place] [facility] [address] [id number] [place] [address] Jul, [facility] [place] [facility] [address] [id number] [place] [address] Jun, [facility] [place] [facility] [address] [id number] [place] [address] Jun, [facility] [place] [facility] [address] [id number] [place] [address] Jun, [facility] [place] [facility] [address] [id number] [address] May, [facility] [place] [facility] [address] [id number] [place] [address] May, [facility] [place] [facility] [address] [id number] [place] [address] May, [facility] [place] [facility] [address] [id number] [place] [address] May, [facility] [place] [facility] [address] [id number] [address] May, [facility] [place] [facility] [address] [id number] [place] [address] May, [facility] [place] [facility] [address] [id number] [place] [address] May, [facility] [place] [facility] [address] [id number] [place] [address] May, [facility] [place] [facility] [address] [id number] [place] [address] February, [facility] [place] [facility] [address] [id number] [place] [address] February, [facility] [place] [facility] [address] [id number] [place] [address] Jan, [facility] [place] [facility] [address] [id number] [place] [address] Jan, [facility] [place] [facility] [address] [id number] [place] [address] Jan, [facility] [place] [facility] [address] [id number] [place] [address] Jan, [facility] [place] [facility] [address] [facility] [id number] [place] [address] Nov, [facility] [place] [facility] [address] [id number] [place] [address] Nov, [facility] [place] [facility] [address] [id number] [place] [address] Nov, [facility] [place] [facility] [address] [id number] [place] [address] Nov, [facility] [place] [facility] [address] [id number] [place] [address] Sep, [facility] [place] [facility] [address] [id number] [place] [address] Sep, [facility] [place] [facility] [address] [id number] [place] [address] 07 Sep, 2013 [facility] [address] [id number] [place] [address] Sep, [facility] [address] [id number] [place] [address] Sep, [facility] [address] [id number] [place] [address] Sep, [facility] [address] [id number] [place] [address] Jul, [facility] [address] [id number] [place] [address] Jul, [facility] [address] [id number] [place] [address] Jun, [facility] [address] [id number] [place] [address] Jun, [facility] [address] [id number] [place] [address] Jun, [facility] [address] [id number] [place] [address] May, [facility] [address] [place] [id number] May, [facility] [address] [id number] [place] [address] May, [facility] [address] [id number] [place] [address] May, [facility] [address] [id number] [place] [address] May, [facility] [address] [id number] [place] [address] May, [facility] [address] [id number] [place] [address] May, [facility] [address] [id number] [place] [address] Apr, [facility] [place] [facility] [address] [id number] [place] [address] Apr, [facility] [place] [facility] [address] [id number] [place] [address] Apr, [facility] [place] [facility] [address] [id number] [place] [address] Apr, [facility] [address] [id number] [place] [address] Mar, [facility] [place] [facility] [address] [id number] [place] [address] February, [facility] [address] [id number] [place] [address] Jan, [facility] [address] [id number] [place] [address] Dec, [facility] [place] [facility] [address] [id number] [place] [address] Dec, [facility] [place] [facility] [address] [id number] [place] [address] Dec, [facility] [place] [facility] [address] [id number] [place] [address] Nov, [facility] [place] [facility] [address] [id number] [place] [address] Nov, [facility] [place] [facility] [address] [id number] [place] [address] Nov, [facility] [place] [facility] [address] [id number] [place] [address] Oct, [facility] [place] [facility] [address] [id number] [place] [address] Oct, [facility] [place] [facility] [address] [id number] [place] [address] 05 Sep, 2012 [facility] [place] [facility] [address] [id number] [place] [address] Sep, [facility] [place] [facility] [address] [id number] [place] [address] Sep, [facility] [place] [facility] [address] [id number] [place] [address] Sep, [facility] [place] [facility] [address] [id number] [place] [address] Sep, [facility] [place] [facility] [address] [id number] [place] [address] Sep, [facility] [place] [facility] [address] [id number] [place] [address] Aug, [facility] [place] [facility] [address] [id number] [place] [address] Aug, [facility] [place] [facility] [address] [id number] [place] [address] Aug, [facility] [place] [facility] [address] [id number] [place] [address] Aug, [facility] [place] [facility] [address] [id number] [place] [address] Aug, [facility] [place] [facility] [address] [id number] [place] [address] Aug, [facility] [place] [facility] [address] [id number] [place] [address] Aug, [facility] [place] [facility] [address] [id number] [place] [address] Aug, [facility] [place] [facility] [address] [id number] [place] [address] Aug, [facility] [place] [facility] [address] [id number] [place] [address] Aug, [facility] [place] [facility] [address] [id number] [place] [address] Jul, 2011 [facility] [place] [facility] [address] [id number] [place] [address] Jul, [facility] [place] [facility] [address] [id number] [place] [address] Jul, 2011 [facility] [place] [facility] [address] [id number] [place] [address] Jul, [facility] [place] [facility] [address] [id number] [place] [address] Jul, [facility] [place] [facility] [address] [id number] [place] [address] Jul, [facility] [place] [facility] [address] [id number] [place] [address] Jul, [facility] [place] [facility] [address] [id number] [place] [address] Jul, [facility] [place] [facility] [address] [id number] [place] [address] Jul, [facility] [place] [facility] [address] [id number] [place] [address] Jul, [facility] [place] [facility] [address] [id number] [place] [address] Jul, [facility] [place] [facility] [address] [id number] [place] [address] Jul, [facility] [place] [facility] [address] [id number] [place] [address] Jul, [facility] [place] [facility] [address] [id number] [place] [address] Jul, [facility] [place] [facility] [address] [id number] [place] [address] Jul, [facility] [place] [facility] [address] [id number] [place] [address] 28 Jun, 2012 [facility] [place] [facility] [address] [id number] [place] [address] 24 Jun, 2012 [facility] [place] [facility] [address] [id number] [place] [address] Jun, [facility] [place] [facility] [address] [id number] [place] [address] May, [facility] [place] [facility] [address] [id number] [place] [address] May, [facility] [place] [facility] [address] [id number] [place] [address] Mar, [facility] [place] [facility] [address] [id number] [place] [address] Mar, [facility] [place] [facility] [address] [id number] [place] [address] February, [facility] [place] [facility] [address] [id number] [place] [address] February, [facility] [place] [facility] [address] [id number] [place] [address] Nov, [facility] [place] [facility] [address] [id number] [place] [address] Oct, [facility] [place] [facility] [address] [id number] [place] [address] Oct, [facility] [place] [facility] [address] [id number] [place] [address] Oct, [facility] [place] [facility] [address] [id number] [place] [address] Aug, [facility] [place] [facility] [address] [id number] [place] [address] Jul, [facility] [place] [facility] [address] [id number] [place] [address] Sep, [facility] [place] [facility] [address] [place] [address] 08 Aug, 2010 [facility] [id number] [place] [address] Jul, [facility] [address] [place] [address] 14 Apr, 2010 [facility] [id number] [place] [address] February, [facility] [id number] [place] [address] Sep, [facility] [id number] [place] [address] Sep, [facility] [id number] [place] [address] Sep, [facility] [id number] [place] [address] Apr, [facility] [id number] [place] [address] Mar, [facility] [id number] [place] [address] February, [facility] [address] [place] [address] Jan, [facility] [id number] [place] [address] Jul, IMMUNIZATIONS No Known Immunizations SOCIAL HISTORY Never Assessed [place]ASON FOR [place]IT [place] [place] VITAL SIGNS MEDICATIONS Unknown Medications RESULTS No Results PROCEDURES No Known procedures INSTRUCTIONS MEDICATIONS ADMINISTERED No Known Medications MEDICAL (GENERAL) HISTORY Type Description Date Medical History 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
--- OUTSIDE RECORDS SUMMARY | 2019-05-04 08:46 | XMS REPORT ---
Author Author Migration, Doctor Organization [facility] Address Unknown Phone Unavailable Care Team Providers Care Adjunct Instructor Chemistry Name Role Phone Migration, Doctor Unavailable Unavailable PROBLEMS Type Condition ICD9-CM Code [id number] Code Onset Dates Condition Status SNOMED Code Problem Thoracic neuritis M54.14 Active 99255248 Problem Lumbar neuritis M54.16 Active 129765292 Problem Hypertension, benign I10 Active 21288056 Problem Mood disorder F39 Active 39496806 Problem Intracranial injury, without loss of consciousness, subsequent encounter S06.9X0D Active 479397706 Problem Seasonal allergic rhinitis, unspecified trigger J30.2 Active 233450329 Problem Cardiomyopathy I42.9 Active 39972724 Problem GERD (gastroesophageal reflux disease) K21.9 Active 828953390 Problem Epileptic seizure, generalized G40.309 Active 47420930 Problem Ventricular arrhythmia I49.9 Active 48544400 ALLERGIES No Information ENCOUNTERS Encounter Location Date Diagnosis [facility] [id number] [place] [address] Jan, Seizures R56.9 [facility] [id number] [place] [address] Dec, Seizures R56.9 [facility] [id number] [place] [address] Nov, Dysuria R30.0 and Urinary tract infection without hematuria, site unspecified N39.0 [facility] [id number] [place] [address] Nov, [facility] [id number] [place] [address] Nov, Seizures R56.9 [facility] [id number] [place] [address] Sep, Seizures R56.9 [facility] [id number] [place] [address] Sep, Seasonal allergic rhinitis, unspecified trigger J30.2 [facility] [id number] [place] [address] Aug, Neck pain on left side M54.2 ; Mood disorder F39 and GERD (gastroesophageal reflux disease) K21.9 [facility] [address] [address] Aug, Seizures R56.9 [facility] [id number] [place] [address] Aug, Mood disorder F39 ; Neck pain on left side M54.2 and Hypertension, benign I10 [facility] [id number] [place] [address] Aug, [facility] [address] [address] Aug, [facility] [id number] [place] [address] Jul, [facility] [id number] [place] [address] Jul, Hypertension, benign I10 [facility] [id number] [place] [address] Jul, [facility] [id number] [place] [address] Jul, Thoracic neuritis M54.14 ; Pain of left leg M79.605 and Pain in right leg M79.604 [facility] [id number] [place] [address] Jun, Seizures R56.9 [facility] [id number] [place] [address] May, [facility] [address] [address] May, [facility] [id number] [place] [address] May, [facility] [address] [address] May, Seizures R56.9 [facility] [address] [address] May, [facility] [address] [address] May, Delirium R41.0 [facility] [address] [address] Apr, [facility] [address] [address] February, Ventricular arrhythmia I49.9 [facility] [address] [address] February, [facility] [id number] [place] [address] Dec, Thoracic neuritis M54.14 ; Lumbar neuritis M54.16 and Epileptic seizure, generalized G40.309 [facility] [id number] [place] [address] Sep, Epileptic seizure, generalized G40.309 and Lumbar neuritis M54.16 [facility] [id number] [place] [address] Aug, Thoracic neuritis M54.14 and Lumbar neuritis M54.16 [facility] [id number] [place] [address] Jun, [facility] [address] [address] Jun, Abscess of leg, left L02.416 [facility] [address] [address] May, Lumbar neuritis M54.16 ; Thoracic neuritis M54.14 ; Intracranial injury, without loss of consciousness, subsequent encounter S06.9X0D and Cardiomyopathy I42.9 [place] [address] [address] Apr, Lumbar neuritis M54.16 [place] [address] [address] Apr, [place] [address] [address] Apr, Elevated liver enzymes R74.8 and Renal insufficiency N28.9 [place] [address] [address] Apr, Lumbar neuritis M54.16 ; Thoracic neuritis M54.14 ; Hypertension, benign I10 ; Cardiomyopathy I42.9 and Epileptic seizure, generalized G40.309 [place] [address] [address] Mar, [place] [address] [address] February, [place] [address] [address] February, Lumbar neuritis M54.16 ; Thoracic neuritis M54.14 ; Hypertension, benign I10 ; Cardiomyopathy I42.9 and Epileptic seizure, generalized G40.309 [place] [address] [address] Dec, [place] [address] [address] Sep, Epigastric mass R19.06 [place] [address] [address] Sep, Epigastric mass R19.06 [place] [address] [address] Sep, [place] [id number] [place] [address] Sep, Epigastric mass R19.06 [place] [address] [address] Sep, Epigastric mass R19.06 and Lung mass R91.8 [facility] [address] [address] Jul, Shortness of breath R06.02 ; Dysuria R30.0 and Acute bronchitis, unspecified organism J20.9 [place] [address] [address] Jul, [place] [address] [address] Jun, Seizures R56.9 ; Thoracic neuritis M54.14 ; Lumbar neuritis M54.16 and GERD (gastroesophageal reflux disease) K21.9 [facility] [place] [id number] [place] [address] Jan, [place] [address] [address] Sep, [place] [id number] [place] [address] Sep, Intracranial injury, without loss of consciousness, subsequent encounter S06.9X0D ; Cardiomyopathy I42.9 ; GERD (gastroesophageal reflux disease) K21.9 ; Hypertension, benign I10 ; Thoracic neuritis M54.14 and Lumbar neuritis M54.16 [place] [address] [address] Mar, [place] [address] [address] Mar, Coronary atherosclerosis of unspecified type of vessel, [place] or graft 414.00 ; Unspecified essential hypertension 401.9 ; Thoracic or lumbosacral neuritis or radiculitis, unspecified 724.4 and Other convulsions 780.39 [facility] [id number] [place] [address] 14 Jan, 2015 [facility] [address] [id number] [address] 13 Jan, 2015 [facility] [address] [address] Nov, 2014 [facility] [place] [facility] [address] [facility] [id number], [place] [address] Nov, 2014 [facility] [place] [facility] [id number] [place] [address], [place] [address] Nov, 2014 [facility] [place] [facility] [id number] [address] Nov, 2014 [facility] [address] [address] 16 Nov, 2014 [facility] [place] [facility] [address] [address] Nov, 2014 [facility] [address] [address] Nov, 2014 [facility] [address] [address] Nov, 2014 [facility] [address] [address] Nov, 2014 [facility] [place] [facility] [address] [address] Nov, 2014 [facility] [place] [facility] [address], [place] [address] Sep, [facility] [place] [facility] [address], [place] [address] Sep, [facility] [place] [facility] [address], [place] [address] Aug, [facility] [place] [facility] [address] [id number] [place] [address] Aug, [facility] [place] [facility] [address] [id number] [place] [address] Aug, [facility] [place] [facility] [address] [id number] [place] [address] Aug, [facility] [place] [facility] [address] [id number] [place] [address] Jul, [facility] [place] [facility] [address] [id number] [place] [address] Jul, [facility] [place] [facility] [address] [id number] [place] [address] Jul, [facility] [place] [facility] [address] [id number] [place] [address] Jul, [facility] [place] [facility] [address] [id number] [place] [address] Jun, [facility] [place] [facility] [address] [id number] [place] [address] Jun, [facility] [place] [facility] [address] [id number] [place] [address] Jun, [facility] [place] [facility] [address] [id number] [place] [address] May, [facility] [place] [facility] [address] [id number] [place] [address] May, [facility] [place] [facility] [address] [id number] [place] [address] May, [facility] [place] [facility] [address] [id number] [place] [address] May, [facility] [place] [facility] [address] [id number] [place] [address] May, [facility] [place] [facility] [address] [id number], [place] [address] May, [facility] [place] [facility] [address] [id number] [place] [address] May, [facility] [place] [facility] [address] [id number] [place] [address] May, [facility] [place] [facility] [address] [id number] [place] [address] February, [facility] [place] [facility] [address] [id number] [place] [address] February, [facility] [place] [facility] [address] [id number] [place] [address] Jan, [facility] [place] [facility] [address] [id number] [place] [address] Jan, [facility] [place] [facility] [address] [facility] [id number] [place] [address] Jan, [facility] [place] [facility] [address] [facility] [id number] [place] [address] Jan, [facility] [place] [facility] [address] [facility] [id number] [place] [address] Nov, [facility] [place] [facility] [address] [facility] [id number] [place] [address] Nov, [facility] [place] [facility] [address] [id number] [place] [address] Nov, [facility] [place] [facility] [address] [facility] [id number] [place] [address] Nov, [facility] [place] [facility] [address] [id number] [place] [address] Sep, [facility] [place] [facility] [address] [id number] [place] [address] Sep, [facility] [place] [facility] [address] [facility] [id number], [place] [address] Sep, [facility] [place] [facility] [address] [id number] [place] [address] Sep, [facility] [address] [id number] [place] [address] Sep, [facility] [address] [id number] [place] [address] Sep, [facility] [address] [id number] [place] [address] Jul, [facility] [address] [id number] [place] [address] Jul, [facility] [address] [id number] [place] [address] Jun, [facility] [address] [id number] [place] [address] Jun, [facility] [address] [id number] [place] [address] Jun, [facility] [address] [id number] [place] [address] May, [facility] [address] [place] [id number] May, [facility] [address] [id number] [place] [address] May, [facility] [address] [id number] [place] [address] May, [facility] [address] [id number] [place] [address] May, [facility] [address] [id number] [place] [address] May, [facility] [address] [id number] [place] [address] May, [facility] [address] [id number] [place] [address] Apr, [facility] [address] [id number] [place] [address] 30 Apr, 2013 [facility] [address] [id number] [place] [address] Apr, [facility] [address] [id number] [place] [address] Apr, [facility] [place] [facility] [address] [id number] [place] [address] Mar, [facility] [address] [id number] [place] [address] February, [facility] [address] [id number] [place] [address] Jan, [facility] [address] [id number] [place] [address] Dec, [facility] [address] [id number] [place] [address] Dec, [facility] [address] [id number] [place] [address] Dec, [facility] [address] [id number] [place] [address] Nov, [facility] [place] [facility] [address] [id number] [place] [address] Nov, [facility] [place] [facility] [address] [id number] [place] [address] Nov, [facility] [place] [facility] [address] [id number] [place] [address] Oct, [facility] [place] [facility] [address] [id number] [place] [address] Oct, [facility] [place] [facility] [address] [id number] [place] [address] Sep, [facility] [place] [facility] [address] [id number] [place] [address] Sep, [facility] [place] [facility] [address] [id number] [place] [address] Sep, [facility] [place] [facility] [address] [id number] [place] [address] Sep, [facility] [place] [facility] [address] [id number] [place] [address] Sep, [facility] [place] [facility] [address] [id number] [place] [address] Sep, [facility] [place] [facility] [address] [id number] [place] [address] Aug, [facility] [place] [facility] [address] [id number] [place] [address] Aug, [facility] [place] [facility] [address] [id number] [place] [address] Aug, [facility] [place] [facility] [address] [id number] [place] [address] Aug, [facility] [place] [facility] [address] [id number] [place] [address] Aug, [facility] [place] [facility] [address] [id number] [place] [address] Aug, [facility] [place] [facility] [address] [id number] [place] [address] Aug, [facility] [place] [facility] [address] [id number], [place] [address] Aug, [facility] [place] [facility] [address] [id number] [place] [address] Aug, [facility] [place] [facility] [address] [id number] [place] [address] Aug, [facility] [place] [facility] [address] [id number] [place] [address] Jul, [facility] [place] [facility] [address] [id number] [place] [address] 29 Jul, 2012 [facility] [place] [facility] [address] [id number] [place] [address] Jul, [facility] [place] [facility] [address] [id number] [place] [address] Jul, [facility] [place] [facility] [address] [id number] [place] [address] Jul, [facility] [place] [facility] [address] [id number] [place] [address] 24 Jul, 2012 [facility] [place] [facility] [address] [id number] [place] [address] Jul, [facility] [place] [facility] [address] [id number] [place] [address] Jul, [facility] [place] [facility] [address] [id number] [place] [address] Jul, [facility] [place] [facility] [address] [id number] [place] [address] Jul, [facility] [place] [facility] [address] [id number] [place] [address] Jul, [facility] [place] [facility] [address] [id number] [place] [address] Jul, [facility] [place] [facility] [address] [id number] [place] [address] Jul, [facility] [place] [facility] [address] [id number] [place] [address] Jul, [facility] [place] [facility] [address] [id number] [place] [address] Jul, [facility] [place] [facility] [address] [id number] [place] [address] Jun, [facility] [place] [facility] [address] [id number] [place] [address] 24 Jun, 2012 [facility] [place] [facility] [address] [id number] [place] [address] Jun, [facility] [place] [facility] [address] [id number] [place] [address] May, [facility] [place] [facility] [address] [id number] [place] [address] May, [facility] [place] [facility] [address] [id number] [place] [address] Mar, [facility] [place] [facility] [address] [id number] [place] [address] Mar, [facility] [place] [facility] [address] [id number] [place] [address] February, [facility] [place] [facility] [address] [id number] [place] [address] February, [facility] [place] [facility] [address] [id number] [place] [address] Nov, [facility] [place] [facility] [address] [id number] [place] [address] Oct, [facility] [place] [facility] [address] [id number] [place] [address] Oct, [facility] [place] [facility] [address] [id number], [place] [address] Oct, [facility] [place] [facility] [address] [id number], [place] [address] Aug, [facility] [place] [facility] [address] [id number] [place] [address] Jul, [facility] [place] [facility] [address] [id number] [place] [address] Sep, [facility] [place] [facility] [address] [id number] [place] [address] Aug, [facility] [place] [facility] [address], [place] [address] Jul, [facility] [address], [place] [address] Apr, [facility] [id number], [place] [address] February, [facility] [id number], [place] [address] Sep, [facility] [id number] [place] [id number] Sep, [facility] [id number] [place] [id number] Sep, [facility] [id number] [place] [phone] Apr, [facility] [id number] [place] [phone] Mar, [facility] [id number] [address] February, [facility] [id number] [place] [phone] Jan, 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
--- OUTSIDE RECORDS SUMMARY | 2019-05-04 08:46 | XMS REPORT ---
Author Author Migration, Doctor Organization [facility] Address Unknown Phone Unavailable Care Team Providers Care Public Bath Attendant Name Role Phone Migration, Doctor Unavailable Unavailable PROBLEMS Type Condition ICD9-CM Code UIA68-UG Code Onset Dates Condition Status SNOMED Code Problem Thoracic neuritis M54.14 Active 67304589 Problem Lumbar neuritis M54.16 Active 318862818 Problem Hypertension, benign I10 Active 14918680 Problem Mood disorder F39 Active 62203660 Problem Intracranial injury, without loss of consciousness, subsequent encounter S06.9X0D Active 105669791 Problem Seasonal allergic rhinitis, unspecified trigger J30.2 Active 500194099 Problem Cardiomyopathy I42.9 Active 30741868 Problem GERD (gastroesophageal reflux disease) K21.9 Active 053461058 Problem Epileptic seizure, generalized G40.309 Active 61740620 Problem Ventricular arrhythmia I49.9 Active 45657660 ALLERGIES No Information ENCOUNTERS Encounter Location Date Diagnosis [facility] [id number] [place] [address] Jan, Seizures R56.9 [facility] [id number] [place] [address] Dec, Seizures R56.9 [facility] [id number] [place] [address] Nov, Dysuria R30.0 and Urinary tract infection without hematuria, site unspecified N39.0 [facility] [id number] [place] [address] Nov, [facility] [id number] [place] [address] Nov, Seizures R56.9 [facility] [id number] [place] [address] Sep, Seizures R56.9 [facility] [id number] [place] [address] Sep, Seasonal allergic rhinitis, unspecified trigger J30.2 [facility] [id number] [place] [address] Aug, Neck pain on left side M54.2 ; Mood disorder F39 and GERD (gastroesophageal reflux disease) K21.9 [facility] [address] [address] Aug, Seizures R56.9 [facility] [id number] [place] [address] Aug, Mood disorder F39 ; Neck pain on left side M54.2 and Hypertension, benign I10 [facility] [id number] [place] [address] Aug, [facility] [address] [address] Aug, [facility] [id number] [place] [address] Jul, [facility] [id number] [place] [address] Jul, Hypertension, benign I10 [facility] [id number] [place] [address] Jul, [facility] [id number] [place] [address] Jul, Thoracic neuritis M54.14 ; Pain of left leg M79.605 and Pain in right leg M79.604 [facility] [id number] [place] [address] Jun, Seizures R56.9 [facility] [id number] [place] [address] May, [facility] [address] [address] May, [facility] [id number] [place] [address] May, [facility] [address] [address] May, Seizures R56.9 [facility] [address] [address] May, [facility] [address] [address] May, Delirium R41.0 [facility] [address] [address] Apr, [facility] [address] [address] February, Ventricular arrhythmia I49.9 [facility] [address] [address] February, [facility] [id number] [place] [address] Dec, Thoracic neuritis M54.14 ; Lumbar neuritis M54.16 and Epileptic seizure, generalized G40.309 [facility] [id number] [place] [address] Sep, Epileptic seizure, generalized G40.309 and Lumbar neuritis M54.16 [facility] [id number] [place] [address] Aug, Thoracic neuritis M54.14 and Lumbar neuritis M54.16 [facility] [id number] [place] [address] Jun, [facility] [address] [address] Jun, Abscess of leg, left L02.416 [facility] [address] [address] May, Lumbar neuritis M54.16 ; Thoracic neuritis M54.14 ; Intracranial injury, without loss of consciousness, subsequent encounter S06.9X0D and Cardiomyopathy I42.9 [place] [address] [address] Apr, Lumbar neuritis M54.16 [place] [address] [address] Apr, [address] [address] [address] Apr, Elevated liver enzymes R74.8 and Renal insufficiency N28.9 [place] [address] [address] Apr, Lumbar neuritis M54.16 ; Thoracic neuritis M54.14 ; Hypertension, benign I10 ; Cardiomyopathy I42.9 and Epileptic seizure, generalized G40.309 [address] [address] [address] Mar, [address] [address] [address] February, [place] [address] [address] February, Lumbar neuritis M54.16 ; Thoracic neuritis M54.14 ; Hypertension, benign I10 ; Cardiomyopathy I42.9 and Epileptic seizure, generalized G40.309 [address] [address] [address] Dec, [place] [address] [address] Sep, Epigastric mass R19.06 [place] [address] [address] Sep, Epigastric mass R19.06 [place] [address] [address] Sep, [place] [id number] [place] [address] Sep, Epigastric mass R19.06 [place] [address] [address] Sep, Epigastric mass R19.06 and Lung mass R91.8 [facility] [address] [address] Jul, Shortness of breath R06.02 ; Dysuria R30.0 and Acute bronchitis, unspecified organism J20.9 [place] [address] [address] Jul, [place] [address] [address] Jun, Seizures R56.9 ; Thoracic neuritis M54.14 ; Lumbar neuritis M54.16 and GERD (gastroesophageal reflux disease) K21.9 [facility] [place] [id number] [place] [address] Jan, [place] [address] [address] Sep, [place] [id number] [place] [address] Sep, Intracranial injury, without loss of consciousness, subsequent encounter S06.9X0D ; Cardiomyopathy I42.9 ; GERD (gastroesophageal reflux disease) K21.9 ; Hypertension, benign I10 ; Thoracic neuritis M54.14 and Lumbar neuritis M54.16 [address] [address] [address] Mar, [place] [address] [address] Mar, Coronary atherosclerosis of unspecified type of vessel, [place] or graft 414.00 ; Unspecified essential hypertension 401.9 ; Thoracic or lumbosacral neuritis or radiculitis, unspecified 724.4 and Other convulsions 780.39 [facility] [id number] [place] [address] 14 Jan, 2015 [facility] [id number] [address] 13 Jan, 2015 [facility] [address] [address] Nov, 2014 [facility] [place] [facility] [address] [facility] [id number] [address] Nov, 2014 [facility] [place] [facility] [id number] [place] [address], [place] [address] Nov, 2014 [facility] [place] [facility] [id number] [address] Nov, 2014 [facility] [address] [address] 16 Nov, 2014 [facility] [place] [facility] [address] [address] Nov, 2014 [facility] [id number] [address] Nov, 2014 [facility] [id number] [address] Nov, 2014 [facility] [id number] [address] Nov, 2014 [facility] [place] [facility] [id number] [address] Nov, 2014 [facility] [place] [facility] [id number] [address] Sep, [facility] [place] [facility] [id number] [address] Sep, [facility] [place] [facility] [address] [address] Aug, [facility] [place] [facility] [address] [id number] [place] [address] Aug, [facility] [place] [facility] [address] [id number] [place] [address] Aug, [facility] [place] [facility] [address] [id number] [place] [address] Aug, [facility] [place] [facility] [address] [id number] [place] [address] Jul, [facility] [place] [facility] [address] [id number] [place] [address] Jul, [facility] [place] [facility] [address] [id number] [place] [address] Jul, [facility] [place] [facility] [address] [id number] [place] [address] Jul, [facility] [place] [facility] [address] [id number] [place] [address] Jun, [facility] [place] [facility] [address] [id number] [place] [address] Jun, [facility] [place] [facility] [address] [id number] [place] [address] Jun, [facility] [place] [facility] [address] [id number] [place] [address] May, [facility] [place] [facility] [address] [id number] [place] [address] May, [facility] [place] [facility] [address] [id number] [place] [address] May, [facility] [place] [facility] [address] [id number] [place] [address] May, [facility] [place] [facility] [address] [id number] [place] [address] May, [facility] [place] [facility] [address] [id number] [address] May, [facility] [place] [facility] [address] [id number] [place] [address] May, [facility] [place] [facility] [address] [id number] [place] [address] May, [facility] [place] [facility] [address] [id number] [place] [address] February, [facility] [place] [facility] [address] [id number] [place] [address] February, [facility] [place] [facility] [address] [id number] [place] [address] Jan, [facility] [place] [facility] [address] [id number] [place] [address] Jan, [facility] [place] [facility] [address] [facility] [id number] [place] [address] Jan, [facility] [place] [facility] [address] [facility] [id number] [place] [address] Jan, [facility] [place] [facility] [address] [facility] [id number] [place] [address] Nov, [facility] [place] [facility] [address] [facility] [id number] [place] [address] Nov, [facility] [place] [facility] [address] [id number] [place] [address] Nov, [facility] [place] [facility] [address] [facility] [id number] [place] [address] Nov, [facility] [place] [facility] [address] [id number] [place] [address] Sep, [facility] [place] [facility] [address] [id number] [place] [address] Sep, [facility] [place] [facility] [address] [facility] [id number] [address] Sep, [facility] [place] [facility] [address] [id number] [place] [address] Sep, [facility] [address] [id number] [place] [address] Sep, [facility] [address] [id number] [place] [address] Sep, [facility] [address] [id number] [place] [address] Jul, [facility] [address] [id number] [place] [address] Jul, [facility] [address] [id number] [place] [address] Jun, [facility] [address] [id number] [place] [address] Jun, [facility] [address] [id number] [place] [address] Jun, [facility] [address] [id number] [place] [address] May, [facility] [address] [place] [id number] May, [facility] [address] [id number] [place] [address] May, [facility] [address] [id number] [place] [address] May, [facility] [address] [id number] [place] [address] May, [facility] [address] [id number] [place] [address] May, [facility] [address] [id number] [place] [address] May, [facility] [address] [id number] [place] [address] Apr, [facility] [address] [id number] [place] [address] 30 Apr, 2013 [facility] [address] [id number] [place] [address] Apr, [facility] [address] [id number] [place] [address] Apr, [facility] [place] [facility] [address] [id number] [place] [address] Mar, [facility] [address] [id number] [place] [address] February, [facility] [address] [id number] [place] [address] Jan, [facility] [address] [id number] [place] [address] Dec, [facility] [address] [id number] [place] [address] Dec, [facility] [address] [id number] [place] [address] Dec, [facility] [address] [id number] [place] [address] Nov, [facility] [place] [facility] [address] [id number] [place] [address] Nov, [facility] [place] [facility] [address] [id number] [place] [address] Nov, [facility] [place] [facility] [address] [id number] [place] [address] Oct, [facility] [place] [facility] [address] [id number] [place] [address] Oct, [facility] [place] [facility] [address] [id number] [place] [address] Sep, [facility] [place] [facility] [address] [id number] [place] [address] Sep, [facility] [place] [facility] [address] [id number] [place] [address] Sep, [facility] [place] [facility] [address] [id number] [place] [address] Sep, [facility] [place] [facility] [address] [id number] [place] [address] Sep, [facility] [place] [facility] [address] [id number] [place] [address] Sep, [facility] [place] [facility] [address] [id number] [place] [address] Aug, [facility] [place] [facility] [address] [id number] [place] [address] Aug, [facility] [place] [facility] [address] [id number] [place] [address] Aug, [facility] [place] [facility] [address] [id number] [place] [address] Aug, [facility] [place] [facility] [address] [id number] [place] [address] Aug, [facility] [place] [facility] [address] [id number] [place] [address] Aug, [facility] [place] [facility] [address] [id number] [place] [address] Aug, [facility] [place] [facility] [address] [id number], [place] [address] Aug, [facility] [place] [facility] [address] [id number] [place] [address] Aug, [facility] [place] [facility] [address] [id number] [place] [address] Aug, [facility] [place] [facility] [address] [id number] [place] [address] Jul, [facility] [place] [facility] [address] [id number] [place] [address] 29 Jul, 2012 [facility] [place] [facility] [address] [id number] [place] [address] Jul, [facility] [place] [facility] [address] [id number] [place] [address] Jul, [facility] [place] [facility] [address] [id number] [place] [address] Jul, [facility] [place] [facility] [address] [id number] [place] [address] 24 Jul, 2012 [facility] [place] [facility] [address] [id number] [place] [address] Jul, [facility] [place] [facility] [address] [id number] [place] [address] Jul, [facility] [place] [facility] [address] [id number] [place] [address] Jul, [facility] [place] [facility] [address] [id number] [place] [address] Jul, [facility] [place] [facility] [address] [id number] [place] [address] Jul, [facility] [place] [facility] [address] [id number] [place] [address] Jul, [facility] [place] [facility] [address] [id number] [place] [address] Jul, [facility] [place] [facility] [address] [id number] [place] [address] Jul, [facility] [place] [facility] [address] [id number] [place] [address] Jul, [facility] [place] [facility] [address] [id number] [place] [address] Jun, [facility] [place] [facility] [address] [id number] [place] [address] 24 Jun, 2012 [facility] [place] [facility] [address] [id number] [place] [address] Jun, [facility] [place] [facility] [address] [id number] [place] [address] May, [facility] [place] [facility] [address] [id number] [place] [address] May, [facility] [place] [facility] [address] [id number] [place] [address] Mar, [facility] [place] [facility] [address] [id number] [place] [address] Mar, [facility] [place] [facility] [address] [id number] [place] [address] February, [facility] [place] [facility] [address] [id number] [place] [address] February, [facility] [place] [facility] [address] [id number] [place] [address] Nov, [facility] [place] [facility] [address] [id number] [place] [address] Oct, [facility] [place] [facility] [address] [id number] [place] [address] Oct, [facility] [place] [facility] [address] [id number], [place] [address] Oct, [facility] [place] [facility] [address] [id number], [place] [address] Aug, [facility] [place] [facility] [address] [id number] [place] [address] Jul, [facility] [place] [facility] [address] [id number] [place] [address] Sep, [facility] [place] [facility] [address] [id number] [place] [address] Aug, [facility] [place] [facility] [id number] [address] Jul, [facility] [id number] [address] Apr, [facility] [id number] [address] February, [facility] [id number] [address] Sep, [facility] [id number] [place] [address] Sep, [facility] [id number] [place] [address] Sep, [facility] [id number] [place] [address] Apr, [facility] [id number] [place] [address] Mar, [facility] [id number] [address] February, [facility] [id number] [place] [id number] Jan, [facility] [id number] [address] Jul, IMMUNIZATIONS No Known Immunizations SOCIAL HISTORY Never Assessed REASON FOR VISIT [facility] [place] PLAN OF CARE VITAL SIGNS MEDICATIONS Unknown Medications RESULTS No Results PROCEDURES No Known procedures INSTRUCTIONS MEDICATIONS ADMINISTERED No Known Medications MEDICAL (GENERAL) HISTORY Type Description Date Medical History 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
--- OUTSIDE RECORDS SUMMARY | 2019-05-04 08:47 | XMS REPORT ---
Author Author Migration, Doctor Organization [facility] Address Unknown Phone Unavailable Care Team Providers Care Mate Ship Name Role Phone Migration, Doctor Unavailable Unavailable PROBLEMS Type Condition ICD9-CM Code MTJ91-US Code Onset Dates Condition Status SNOMED Code Problem Thoracic neuritis M54.14 Active 22654845 Problem Lumbar neuritis M54.16 Active 191220871 Problem Hypertension, benign I10 Active 48088016 Problem Mood disorder F39 Active 90966550 Problem Intracranial injury, without loss of consciousness, subsequent encounter S06.9X0D Active 923841856 Problem Seasonal allergic rhinitis, unspecified trigger J30.2 Active 706496377 Problem Cardiomyopathy I42.9 Active 43707010 Problem GERD (gastroesophageal reflux disease) K21.9 Active 607209479 Problem Epileptic seizure, generalized G40.309 Active 87306212 Problem Ventricular arrhythmia I49.9 Active 19058574 ALLERGIES No Information ENCOUNTERS Encounter Location Date Diagnosis [facility] [id number] [place] [address] Jan, Seizures R56.9 [facility] [id number] [place] [address] Dec, Seizures R56.9 [facility] WALK IN [facility] [id number] [place] [address] Nov, Dysuria R30.0 and Urinary tract infection without hematuria, site unspecified N39.0 [facility] [address] [place] [address] Nov, [facility] [id number] [place] [address] Nov, Seizures R56.9 [facility] [id number] [place] [address] Sep, Seizures R56.9 [facility] [id number] [place] [address] Sep, Seasonal allergic rhinitis, unspecified trigger J30.2 [facility] [id number] [place] [address] Aug, Neck pain on left side M54.2 ; Mood disorder F39 and GERD (gastroesophageal reflux disease) K21.9 [facility] [address] [address] Aug, Seizures R56.9 [facility] [id number] [place] [address] Aug, Mood disorder F39 ; Neck pain on left side M54.2 and Hypertension, benign I10 [facility] [id number] [place] [address] Aug, [facility] [address] [address] Aug, [facility] [id number] [place] [address] Jul, [facility] [id number] [place] [address] Jul, Hypertension, benign I10 [facility] [id number] [place] [address] Jul, [facility] [id number] [place] [address] Jul, Thoracic neuritis M54.14 ; Pain of left leg M79.605 and Pain in right leg M79.604 [facility] [id number] [place] [address] Jun, Seizures R56.9 [facility] [id number] [place] [address] May, [facility] [address] [address] May, [facility] [id number] [place] [address] May, [facility] [address] [address] May, Seizures R56.9 [facility] [address] [address] May, [facility] [address] [address] May, Delirium R41.0 [facility] [address] [address] Apr, [facility] [address] [address] February, Ventricular arrhythmia I49.9 [facility] [address] [address] February, [facility] [id number] [place] [address] Dec, Thoracic neuritis M54.14 ; Lumbar neuritis M54.16 and Epileptic seizure, generalized G40.309 [facility] [id number] [place] [address] Sep, Epileptic seizure, generalized G40.309 and Lumbar neuritis M54.16 [facility] [id number] [place] [address] Aug, Thoracic neuritis M54.14 and Lumbar neuritis M54.16 [facility] [id number] [place] [address] Jun, [facility] [address] [address] Jun, Abscess of leg, left L02.416 [facility] [address] [address] May, Lumbar neuritis M54.16 ; Thoracic neuritis M54.14 ; Intracranial injury, without loss of consciousness, subsequent encounter S06.9X0D and Cardiomyopathy I42.9 [place] [address] [address] Apr, Lumbar neuritis M54.16 [place] [address] [address] Apr, [place] [address] [address] Apr, Elevated liver enzymes R74.8 and Renal insufficiency N28.9 [place] [address] [address] Apr, Lumbar neuritis M54.16 ; Thoracic neuritis M54.14 ; Hypertension, benign I10 ; Cardiomyopathy I42.9 and Epileptic seizure, generalized G40.309 [place] [address] [address] Mar, [place] [address] [address] February, [place] [address] [address] February, Lumbar neuritis M54.16 ; Thoracic neuritis M54.14 ; Hypertension, benign I10 ; Cardiomyopathy I42.9 and Epileptic seizure, generalized G40.309 [place] [address] [address] Dec, [place] [address] [address] Sep, Epigastric mass R19.06 [place] [address] [address] Sep, Epigastric mass R19.06 [place] [address] [address] Sep, [place] [id number] [place] [address] Sep, Epigastric mass R19.06 [place] [address] [address] Sep, Epigastric mass R19.06 and Lung mass R91.8 [facility] WALK [facility] [address] [address] Jul, Shortness of breath R06.02 ; Dysuria R30.0 and Acute bronchitis, unspecified organism J20.9 [place] [address] [address] Jul, [place] [address] [address] Jun, Seizures R56.9 ; Thoracic neuritis M54.14 ; Lumbar neuritis M54.16 and GERD (gastroesophageal reflux disease) K21.9 [facility] [place] [id number] [place] [address] Jan, [place] [address] [address] Sep, [place] [id number] [place] [address] Sep, Intracranial injury, without loss of consciousness, subsequent encounter S06.9X0D ; Cardiomyopathy I42.9 ; GERD (gastroesophageal reflux disease) K21.9 ; Hypertension, benign I10 ; Thoracic neuritis M54.14 and Lumbar neuritis M54.16 [place] [address] [address] Mar, [place] [address] [address] Mar, Coronary atherosclerosis of unspecified type of vessel, [place] or graft 414.00 ; Unspecified essential hypertension 401.9 ; Thoracic or lumbosacral neuritis or radiculitis, unspecified 724.4 and Other convulsions 780.39 [facility] [id number] [place] [address] 14 Jan, 2015 [facility] [id number] [address] 13 Jan, 2015 [facility] [address] [address] Nov, 2014 [facility] [place] [facility] [address] [facility] [id number] [address] Nov, 2014 [facility] [place] [facility] [id number] [place] [address], [place] [address] Nov, 2014 [facility] [place] [facility] [id number] [address] Nov, 2014 [facility] [address] [address] 16 Nov, 2014 [facility] [place] [facility] [address] [address] Nov, 2014 [facility] [address] [address] Nov, 2014 [facility] [address], [place] [address] Nov, 2014 [facility] [address], [place] [address] Nov, 2014 [facility] [place] [facility] [id number] [address] Nov, 2014 [facility] [place] [facility] [id number], [place] [address] Sep, [facility] [place] [facility] [id number], [place] [address] Sep, [facility] [place] [facility] [address], [place] [address] Aug, [facility] [place] [facility] [address] [id number] [place] [address] Aug, [facility] [place] [facility] [address] [id number] [place] [address] Aug, [facility] [place] [facility] [address] [id number] [place] [address] Aug, [facility] [place] [facility] [address] [id number] [place] [address] Jul, [facility] [place] [facility] [address] [id number] [place] [address] Jul, [facility] [place] [facility] [address] [id number] [place] [address] Jul, [facility] [place] [facility] [address] [id number] [place] [address] Jul, [facility] [place] [facility] [address] [id number] [place] [address] Jun, [facility] [place] [facility] [address] [id number] [place] [address] Jun, [facility] [place] [facility] [address] [id number] [place] [address] Jun, [facility] [place] [facility] [address] [id number] [place] [address] May, [facility] [place] [facility] [address] [id number] [place] [address] May, [facility] [place] [facility] [address] [id number] [place] [address] May, [facility] [place] [facility] [address] [id number] [place] [address] May, [facility] [place] [facility] [address] [id number] [place] [address] May, [facility] [place] [facility] [address] [id number], [place] [address] May, [facility] [place] [facility] [address] [id number] [place] [address] May, [facility] [place] [facility] [address] [id number] [place] [address] May, [facility] [place] [facility] [address] [id number] [place] [address] February, [facility] [place] [facility] [address] [id number] [place] [address] February, [facility] [place] [facility] [address] [id number] [place] [address] Jan, [facility] [place] [facility] [address] [id number] [place] [address] Jan, [facility] [place] [facility] [address] [facility] [id number] [place] [address] Jan, [facility] [place] [facility] [address] [facility] [id number] [place] [address] Jan, [facility] [place] [facility] [address] [facility] [id number] [place] [address] Nov, [facility] [place] [facility] [address] [facility] [id number] [place] [address] Nov, [facility] [place] [facility] [address] [id number] [place] [address] Nov, [facility] [place] [facility] [address] [facility] [id number] [place] [address] Nov, [facility] [place] [facility] [address] [id number] [place] [address] Sep, [facility] [place] [facility] [address] [id number] [place] [address] Sep, [facility] [place] [facility] [address] [facility] [id number], [place] [address] Sep, [facility] [place] [facility] [address] [id number] [place] [address] Sep, [facility] [address] [id number] [place] [address] Sep, [facility] [address] [id number] [place] [address] Sep, [facility] [address] [id number] [place] [address] Jul, [facility] [address] [id number] [place] [address] Jul, [facility] [address] [id number] [place] [address] Jun, [facility] [address] [id number] [place] [address] Jun, [facility] [address] [id number] [place] [address] Jun, [facility] [address] [id number] [place] [address] May, [facility] [address] [place] [id number] May, [facility] [address] [id number] [place] [address] May, [facility] [address] [id number] [place] [address] May, [facility] [address] [id number] [place] [address] May, [facility] [address] [id number] [place] [address] May, [facility] [address] [id number] [place] [address] May, [facility] [address] [id number] [place] [address] Apr, [facility] [address] [id number] [place] [address] 30 Apr, 2013 [facility] [address] [id number] [place] [address] Apr, [facility] [address] [id number] [place] [address] Apr, [facility] [place] [facility] [address] [id number] [place] [address] Mar, [facility] [address] [id number] [place] [address] February, [facility] [address] [id number] [place] [address] Jan, [facility] [address] [id number] [place] [address] Dec, [facility] [address] [id number] [place] [address] Dec, [facility] [address] [id number] [place] [address] Dec, [facility] [address] [id number] [place] [address] Nov, [facility] [place] [facility] [address] [id number] [place] [address] Nov, [facility] [place] [facility] [address] [id number] [place] [address] Nov, [facility] [place] [facility] [address] [id number] [place] [address] Oct, [facility] [place] [facility] [address] [id number] [place] [address] Oct, [facility] [place] [facility] [address] [id number] [place] [address] Sep, [facility] [place] [facility] [address] [id number] [place] [address] Sep, [facility] [place] [facility] [address] [id number] [place] [address] Sep, [facility] [place] [facility] [address] [id number] [place] [address] Sep, [facility] [place] [facility] [address] [id number] [place] [address] Sep, [facility] [place] [facility] [address] [id number] [place] [address] Sep, [facility] [place] [facility] [address] [id number] [place] [address] Aug, [facility] [place] [facility] [address] [id number] [place] [address] Aug, [facility] [place] [facility] [address] [id number] [place] [address] Aug, [facility] [place] [facility] [address] [id number] [place] [address] Aug, [facility] [place] [facility] [address] [id number] [place] [address] Aug, [facility] [place] [facility] [address] [id number] [place] [address] Aug, [facility] [place] [facility] [address] [id number] [place] [address] Aug, [facility] [place] [facility] [address] [id number], [place] [address] Aug, [facility] [place] [facility] [address] [id number] [place] [address] Aug, [facility] [place] [facility] [address] [id number] [place] [address] Aug, [facility] [place] [facility] [address] [id number] [place] [address] Jul, [facility] [place] [facility] [address] [id number] [place] [address] 29 Jul, 2012 [facility] [place] [facility] [address] [id number] [place] [address] Jul, [facility] [place] [facility] [address] [id number] [place] [address] Jul, [facility] [place] [facility] [address] [id number] [place] [address] Jul, [facility] [place] [facility] [address] [id number] [place] [address] 24 Jul, 2012 [facility] [place] [facility] [address] [id number] [place] [address] Jul, [facility] [place] [facility] [address] [id number] [place] [address] Jul, [facility] [place] [facility] [address] [id number] [place] [address] Jul, [facility] [place] [facility] [address] [id number] [place] [address] Jul, [facility] [place] [facility] [address] [id number] [place] [address] Jul, [facility] [place] [facility] [address] [id number] [place] [address] Jul, [facility] [place] [facility] [address] [id number] [place] [address] Jul, [facility] [place] [facility] [address] [id number] [place] [address] Jul, [facility] [place] [facility] [address] [id number] [place] [address] Jul, [facility] [place] [facility] [address] [id number] [place] [address] Jun, [facility] [place] [facility] [address] [id number] [place] [address] 24 Jun, 2012 [facility] [place] [facility] [address] [id number] [place] [address] Jun, [facility] [place] [facility] [address] [id number] [place] [address] May, [facility] [place] [facility] [address] [id number] [place] [address] May, [facility] [place] [facility] [address] [id number] [place] [address] Mar, [facility] [place] [facility] [address] [id number] [place] [address] Mar, [facility] [place] [facility] [address] [id number] [place] [address] February, [facility] [place] [facility] [address] [id number] [place] [address] February, [facility] [place] [facility] [address] [id number] [place] [address] Nov, [facility] [place] [facility] [address] [id number] [place] [address] Oct, [facility] [place] [facility] [address] [id number] [place] [address] Oct, [facility] [place] [facility] [address] [id number], [place] [address] Oct, [facility] [place] [facility] [address] [id number], [place] [address] Aug, [facility] [place] [facility] [address] [id number] [place] [address] Jul, [facility] [place] [facility] [address] [id number] [place] [address] Sep, [facility] [place] [facility] [address] [id number] [place] [address] Aug, [facility] [place] [facility] [id number] [address] Jul, [facility] [id number] [place] [address] Apr, [facility] [id number], [place] [address] February, [facility] [id number] [place] [address] Sep, [facility] [id number] [place] [address] Sep, [facility] [id number] [place] [address] Sep, [facility] [id number] [place] [address] Apr, [facility] [id number] [place] [address] Mar, [facility] [id number], [place] [address] February, [facility] [id number] [place] [address] Jan, [facility] [id number], [place] [address] Jul, IMMUNIZATIONS No Known Immunizations SOCIAL HISTORY Never Assessed REASON FOR VISIT [facility] [place] PLAN OF CARE VITAL SIGNS MEDICATIONS Unknown Medications RESULTS No Results PROCEDURES No Known procedures INSTRUCTIONS MEDICATIONS ADMINISTERED No Known Medications MEDICAL (GENERAL) HISTORY Type Description Date Medical History 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
--- OUTSIDE RECORDS SUMMARY | 2019-05-04 08:47 | XMS REPORT ---
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 Role Phone Migration, Doctor Unavailable Unavailable PROBLEMS Type Condition ICD9-CM Code DMD72-SY Code Onset Dates Condition Status SNOMED Code Problem Thoracic neuritis M54.14 Active 65463135 Problem Lumbar neuritis M54.16 Active 517345492 Problem Hypertension, benign I10 Active 44855256 Problem Mood disorder F39 Active 64548323 Problem Intracranial injury, without loss of consciousness, subsequent encounter S06.9X0D Active 981796687 Problem Seasonal allergic rhinitis, unspecified trigger J30.2 Active 372964385 Problem Cardiomyopathy I42.9 Active 21489055 Problem GERD (gastroesophageal reflux disease) K21.9 Active 451274588 Problem Epileptic seizure, generalized G40.309 Active 44017086 Problem Ventricular arrhythmia I49.9 Active 12266881 ALLERGIES No Information ENCOUNTERS Encounter Location Date Diagnosis [facility] [id number] [place] [address] Jan, Seizures R56.9 [facility] [id number] [place] [address] Dec, Seizures R56.9 [facility] [id number] [place] [address] Nov, Dysuria R30.0 and Urinary tract infection without hematuria, site unspecified N39.0 [facility] [id number] [place] [address] Nov, [facility] [id number] [place] [address] Nov, Seizures R56.9 [facility] [id number] [place] [address] Sep, Seizures R56.9 [facility] [id number] [place] [address] Sep, Seasonal allergic rhinitis, unspecified trigger J30.2 [facility] [id number] [place] [address] Aug, Neck pain on left side M54.2 ; Mood disorder F39 and GERD (gastroesophageal reflux disease) K21.9 [facility] [address] [address] Aug, Seizures R56.9 [facility] [id number] [place] [address] Aug, Mood disorder F39 ; Neck pain on left side M54.2 and Hypertension, benign I10 [facility] [id number] [place] [address] Aug, [facility] [address] [address] Aug, [facility] [id number] [place] [address] Jul, [facility] [id number] [place] [address] Jul, Hypertension, benign I10 [facility] [id number] [place] [address] Jul, [facility] [id number] [place] [address] Jul, Thoracic neuritis M54.14 ; Pain of left leg M79.605 and Pain in right leg M79.604 [facility] [id number] [place] [address] Jun, Seizures R56.9 [facility] [id number] [place] [address] May, [facility] [address] [address] May, [facility] [id number] [place] [address] May, [facility] [address] [address] May, Seizures R56.9 [facility] [address] [address] May, [facility] [address] [address] May, Delirium R41.0 [facility] [address] [address] Apr, [facility] [address] [address] February, Ventricular arrhythmia I49.9 [facility] [address] [address] February, [facility] [id number] [place] [address] Dec, Thoracic neuritis M54.14 ; Lumbar neuritis M54.16 and Epileptic seizure, generalized G40.309 [facility] [id number] [place] [address] Sep, Epileptic seizure, generalized G40.309 and Lumbar neuritis M54.16 [facility] [id number] [place] [address] Aug, Thoracic neuritis M54.14 and Lumbar neuritis M54.16 [facility] [id number] [place] [address] Jun, [facility] [address] [address] Jun, Abscess of leg, left L02.416 [facility] [address] [address] May, Lumbar neuritis M54.16 ; Thoracic neuritis M54.14 ; Intracranial injury, without loss of consciousness, subsequent encounter S06.9X0D and Cardiomyopathy I42.9 [place] [address] [address] Apr, Lumbar neuritis M54.16 [place] [address] [address] Apr, [place] [address] [address] Apr, Elevated liver enzymes R74.8 and Renal insufficiency N28.9 [place] [address] [address] Apr, Lumbar neuritis M54.16 ; Thoracic neuritis M54.14 ; Hypertension, benign I10 ; Cardiomyopathy I42.9 and Epileptic seizure, generalized G40.309 [place] [address] [address] Mar, [place] [address] [address] February, [place] [address] [address] February, Lumbar neuritis M54.16 ; Thoracic neuritis M54.14 ; Hypertension, benign I10 ; Cardiomyopathy I42.9 and Epileptic seizure, generalized G40.309 [place] [address] [address] Dec, [place] [address] [address] Sep, Epigastric mass R19.06 [place] [address] [address] Sep, Epigastric mass R19.06 [place] [address] [address] Sep, [place] [id number] [place] [address] Sep, Epigastric mass R19.06 [place] [address] [address] Sep, Epigastric mass R19.06 and Lung mass R91.8 [facility] [address] [address] Jul, Shortness of breath R06.02 ; Dysuria R30.0 and Acute bronchitis, unspecified organism J20.9 [place] [address] [address] Jul, [place] [address] [address] Jun, Seizures R56.9 ; Thoracic neuritis M54.14 ; Lumbar neuritis M54.16 and GERD (gastroesophageal reflux disease) K21.9 [facility] [place] [id number] [place] [address] Jan, [place] [address] [address] Sep, [place] [id number] [place] [address] Sep, Intracranial injury, without loss of consciousness, subsequent encounter S06.9X0D ; Cardiomyopathy I42.9 ; GERD (gastroesophageal reflux disease) K21.9 ; Hypertension, benign I10 ; Thoracic neuritis M54.14 and Lumbar neuritis M54.16 [place] [address] [address] Mar, [place] [address] [address] Mar, Coronary atherosclerosis of unspecified type of vessel, [place] or graft 414.00 ; Unspecified essential hypertension 401.9 ; Thoracic or lumbosacral neuritis or radiculitis, unspecified 724.4 and Other convulsions 780.39 [facility] [id number] [place] [address] 14 Jan, 2015 [facility] [id number] [address] 13 Jan, 2015 [facility] [address] [address] Nov, 2014 [facility] [place] [facility] [address] [facility] [id number] [address] Nov, 2014 [facility] [place] [facility] [id number] [place] [address], [place] [address] Nov, 2014 [facility] [place] [facility] [id number] [address] Nov, 2014 [facility] [address] [address] 16 Nov, 2014 [facility] [place] [facility] [address] [address] Nov, 2014 [facility] [address] [address] Nov, 2014 [facility] [address] [address] Nov, 2014 [facility] [address] [address] Nov, 2014 [facility] [place] [facility] [address] [address] Nov, 2014 [facility] [place] [facility] [address] [address] Sep, [facility] [place] [facility] [address] [address] Sep, [facility] [place] [facility] [address] [address] Aug, [facility] [place] [facility] [address] [id number] [place] [address] Aug, [facility] [place] [facility] [address] [id number] [place] [address] Aug, [facility] [place] [facility] [address] [id number] [place] [address] Aug, [facility] [place] [facility] [address] [id number] [place] [address] Jul, [facility] [place] [facility] [address] [id number] [place] [address] Jul, [facility] [place] [facility] [address] [id number] [place] [address] Jul, [facility] [place] [facility] [address] [id number] [place] [address] Jul, [facility] [place] [facility] [address] [id number] [place] [address] Jun, [facility] [place] [facility] [address] [id number] [place] [address] Jun, [facility] [place] [facility] [address] [id number] [place] [address] Jun, [facility] [place] [facility] [address] [id number] [place] [address] May, [facility] [place] [facility] [address] [id number] [place] [address] May, [facility] [place] [facility] [address] [id number] [place] [address] May, [facility] [place] [facility] [address] [id number] [place] [address] May, [facility] [place] [facility] [address] [id number] [place] [address] May, [facility] [place] [facility] [address] [id number] [place] [address] May, [facility] [place] [facility] [address] [id number] [place] [address] May, [facility] [place] [facility] [address] [id number] [place] [address] May, [facility] [place] [facility] [address] [id number] [place] [address] February, [facility] [place] [facility] [address] [id number] [place] [address] February, [facility] [place] [facility] [address] [id number] [place] [address] Jan, [facility] [place] [facility] [address] [id number] [place] [address] Jan, [facility] [place] [facility] [address] [facility] [id number] [place] [address] Jan, [facility] [place] [facility] [address] [facility] [id number] [place] [address] Jan, [facility] [place] [facility] [address] [facility] [id number] [place] [address] Nov, [facility] [place] [facility] [address] [facility] [id number] [place] [address] Nov, [facility] [place] [facility] [address] [id number] [place] [address] Nov, [facility] [place] [facility] [address] [facility] [id number] [place] [address] Nov, [facility] [place] [facility] [address] [id number] [place] [address] Sep, [facility] [place] [facility] [address] [id number] [place] [address] Sep, [facility] [place] [facility] [address] [facility] [id number] [place] [address] Sep, [facility] [place] [facility] [address] [id number] [place] [address] Sep, [facility] [address] [id number] [place] [address] Sep, [facility] [address] [id number] [place] [address] Sep, [facility] [address] [id number] [place] [address] Jul, [facility] [address] [id number] [place] [address] Jul, [facility] [address] [id number] [place] [address] Jun, [facility] [address] [id number] [place] [address] Jun, [facility] [address] [id number] [place] [address] Jun, [facility] [address] [id number] [place] [address] May, [facility] [address] [place] [id number] May, [facility] [address] [id number] [place] [address] May, [facility] [address] [id number] [place] [address] May, [facility] [address] [id number] [place] [address] May, [facility] [address] [id number] [place] [address] May, [facility] [address] [id number] [place] [address] May, [facility] [address] [id number] [place] [address] Apr, [facility] [address] [id number] [place] [address] 30 Apr, 2013 [facility] [address] [id number] [place] [address] Apr, [facility] [address] [id number] [place] [address] Apr, [facility] [place] [facility] [address] [id number] [place] [address] Mar, [facility] [address] [id number] [place] [address] February, [facility] [address] [id number] [place] [address] Jan, [facility] [address] [id number] [place] [address] Dec, [facility] [address] [id number] [place] [address] Dec, [facility] [address] [id number] [place] [address] Dec, [facility] [address] [id number] [place] [address] Nov, [facility] [place] [facility] [address] [id number] [place] [address] Nov, [facility] [place] [facility] [address] [id number] [place] [address] Nov, [facility] [place] [facility] [address] [id number] [place] [address] Oct, [facility] [place] [facility] [address] [id number] [place] [address] Oct, [facility] [place] [facility] [address] [id number] [place] [address] Sep, [facility] [place] [facility] [address] [id number] [place] [address] Sep, [facility] [place] [facility] [address] [id number] [place] [address] Sep, [facility] [place] [facility] [address] [id number] [place] [address] Sep, [facility] [place] [facility] [address] [id number] [place] [address] Sep, [facility] [place] [facility] [address] [id number] [place] [address] Sep, [facility] [place] [facility] [address] [id number] [place] [address] Aug, [facility] [place] [facility] [address] [id number] [place] [address] Aug, [facility] [place] [facility] [address] [id number] [place] [address] Aug, [facility] [place] [facility] [address] [id number] [place] [address] Aug, [facility] [place] [facility] [address] [id number] [place] [address] Aug, [facility] [place] [facility] [address] [id number] [place] [address] Aug, [facility] [place] [facility] [address] [id number] [place] [address] Aug, [facility] [place] [facility] [address] [id number] [address] Aug, [facility] [place] [facility] [address] [id number] [place] [address] Aug, [facility] [place] [facility] [address] [id number] [place] [address] Aug, [facility] [place] [facility] [address] [id number] [place] [address] Jul, [facility] [place] [facility] [address] [id number] [place] [address] 29 Jul, 2012 [facility] [place] [facility] [address] [id number] [place] [address] Jul, [facility] [place] [facility] [address] [id number] [place] [address] Jul, [facility] [place] [facility] [address] [id number] [place] [address] Jul, [facility] [place] [facility] [address] [id number] [place] [address] 24 Jul, 2012 [facility] [place] [facility] [address] [id number] [place] [address] Jul, [facility] [place] [facility] [address] [id number] [place] [address] Jul, [facility] [place] [facility] [address] [id number] [place] [address] Jul, [facility] [place] [facility] [address] [id number] [place] [address] Jul, [facility] [place] [facility] [address] [id number] [place] [address] Jul, [facility] [place] [facility] [address] [id number] [place] [address] Jul, [facility] [place] [facility] [address] [id number] [place] [address] Jul, [facility] [place] [facility] [address] [id number] [place] [address] Jul, [facility] [place] [facility] [address] [id number] [place] [address] Jul, [facility] [place] [facility] [address] [id number] [place] [address] Jun, [facility] [place] [facility] [address] [id number] [place] [address] 24 Jun, 2012 [facility] [place] [facility] [address] [id number] [place] [address] Jun, [facility] [place] [facility] [address] [id number] [place] [address] May, [facility] [place] [facility] [address] [id number] [place] [address] May, [facility] [place] [facility] [address] [id number] [place] [address] Mar, [facility] [place] [facility] [address] [id number] [place] [address] Mar, [facility] [place] [facility] [address] [id number] [place] [address] February, [facility] [place] [facility] [address] [id number] [place] [address] February, [facility] [place] [facility] [address] [id number] [place] [address] Nov, [facility] [place] [facility] [address] [id number] [place] [address] Oct, [facility] [place] [facility] [address] [id number] [place] [address] Oct, [facility] [place] [facility] [address] [id number] [place] [address] Oct, [facility] [place] [facility] [address] [id number] [place] [address] Aug, [facility] [place] [facility] [address] [id number] [place] [address] Jul, [facility] [place] [facility] [address] [id number] [place] [address] Sep, [facility] [place] [facility] [address] [id number] [place] [address] Aug, [facility] [place] [facility] [address] [address] Jul, [facility] [address] [address] Apr, [facility] [address] [address] February, [facility] [address] [address] Sep, [facility] [id number] [place] [address] Sep, [facility] [id number] [place] [address] Sep, [facility] [id number] [place] [phone] Apr, [facility] [id number] [place] [phone] Mar, [facility] [id number] [address] February, [facility] [id number] [place] [phone] Jan, [facility] [id number] [address] Jul, IMMUNIZATIONS No Known Immunizations SOCIAL HISTORY Never Assessed REASON FOR VISIT [facility] [place] VITAL SIGNS MEDICATIONS Unknown Medications RESULTS No Results PROCEDURES No Known procedures INSTRUCTIONS MEDICATIONS ADMINISTERED No Known Medications MEDICAL (GENERAL) HISTORY Type Description Date Medical History 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
--- OUTSIDE RECORDS SUMMARY | 2019-05-04 08:48 | XMS REPORT ---
Author Author Migration, Doctor Organization [facility] Address Unknown Phone Unavailable Care Team Providers Care Card Puncher Name Role Phone Migration, Doctor Unavailable Unavailable PROBLEMS Type Condition ICD9-CM Code BLU00-FW Code Onset Dates Condition Status SNOMED Code Problem Thoracic neuritis M54.14 Active 60661749 Problem Lumbar neuritis M54.16 Active 773722238 Problem Hypertension, benign I10 Active 50515285 Problem Mood disorder F39 Active 59455256 Problem Intracranial injury, without loss of consciousness, subsequent encounter S06.9X0D Active 373170780 Problem Seasonal allergic rhinitis, unspecified trigger J30.2 Active 439696408 Problem Cardiomyopathy I42.9 Active 79451774 Problem GERD (gastroesophageal reflux disease) K21.9 Active 953436120 Problem Epileptic seizure, generalized G40.309 Active 52357055 Problem Ventricular arrhythmia I49.9 Active 71596432 ALLERGIES No Information ENCOUNTERS Encounter Location Date Diagnosis [facility] [id number] [place] [address] Jan, [facility] [id number] [place] [address] Dec, Seizures R56.9 [facility] [id number] [place] [address] Nov, Dysuria R30.0 and Urinary tract infection without hematuria, site unspecified N39.0 [facility] [id number] [place] [address] Nov, [facility] [id number] [place] [address] Nov, Seizures R56.9 [facility] [id number] [place] [address] Sep, Seizures R56.9 [facility] [id number] [place] [address] Sep, Seasonal allergic rhinitis, unspecified trigger J30.2 [facility] [address] [address] Aug, Neck pain on left side M54.2 ; Mood disorder F39 and GERD (gastroesophageal reflux disease) K21.9 [facility] [address] [address] Aug, Seizures R56.9 [facility] [address] [address] Aug, Mood disorder F39 ; Neck pain on left side M54.2 and Hypertension, benign I10 [facility] [id number] [place] [address] Aug, [facility] [address] [address] Aug, [facility] [address] [address] Jul, [facility] [address] [address] Jul, Hypertension, benign I10 [facility] [id number] [place] [address] Jul, [facility] [address] [address] Jul, Thoracic neuritis M54.14 ; Pain of left leg M79.605 and Pain in right leg M79.604 [facility] [id number] [place] [address] Jun, Seizures R56.9 [facility] [id number] [place] [address] May, [facility] [address] [address] May, [facility] [id number] [place] [address] May, [facility] [address] [address] May, Seizures R56.9 [facility] [address] [address] May, [facility] [address] [address] May, Delirium R41.0 [facility] [address] [address] Apr, [facility] [address] [address] February, Ventricular arrhythmia I49.9 [facility] [address] [address] February, [facility] [id number] [place] [address] Dec, Thoracic neuritis M54.14 ; Lumbar neuritis M54.16 and Epileptic seizure, generalized G40.309 [facility] [id number] [place] [address] Sep, Epileptic seizure, generalized G40.309 and Lumbar neuritis M54.16 [facility] [id number] [place] [address] Aug, Thoracic neuritis M54.14 and Lumbar neuritis M54.16 [facility] [id number] [place] [address] Jun, [facility] [address] [address] Jun, Abscess of leg, left L02.416 [facility] [id number] [place] [address] May, Lumbar neuritis M54.16 ; Thoracic neuritis M54.14 ; Intracranial injury, without loss of consciousness, subsequent encounter S06.9X0D and Cardiomyopathy I42.9 [place] [address] [address] Apr, Lumbar neuritis M54.16 [place] [address] [address] Apr, [place] [address] [address] Apr, Elevated liver enzymes R74.8 and Renal insufficiency N28.9 [place] [address] [address] Apr, Lumbar neuritis M54.16 ; Thoracic neuritis M54.14 ; Hypertension, benign I10 ; Cardiomyopathy I42.9 and Epileptic seizure, generalized G40.309 [place] [address] [address] Mar, [place] [address] [address] February, [place] [address] [address] February, Lumbar neuritis M54.16 ; Thoracic neuritis M54.14 ; Hypertension, benign I10 ; Cardiomyopathy I42.9 and Epileptic seizure, generalized G40.309 [place] [id number] [place] [address] Dec, [place] [address] [address] Sep, Epigastric mass R19.06 [place] [address] [address] Sep, Epigastric mass R19.06 [place] [address] [address] Sep, [place] [id number] [place] [address] Sep, Epigastric mass R19.06 [place] [address] [address] Sep, Epigastric mass R19.06 and Lung mass R91.8 [facility] [address] [address] Jul, Shortness of breath R06.02 ; Dysuria R30.0 and Acute bronchitis, unspecified organism J20.9 [place] [address] [address] Jul, [place] [address] [address] Jun, Seizures R56.9 ; Thoracic neuritis M54.14 ; Lumbar neuritis M54.16 and GERD (gastroesophageal reflux disease) K21.9 [facility] [place] [id number] [place] [address] Jan, [place] [address] [address] Sep, [place] [address] [address] 09 Sep, 2015 Intracranial injury, without loss of consciousness, subsequent encounter S06.9X0D ; Cardiomyopathy I42.9 ; GERD (gastroesophageal reflux disease) K21.9 ; Hypertension, benign I10 ; Thoracic neuritis M54.14 and Lumbar neuritis M54.16 [place] [id number] [place] [address] Mar, [address] [address] Mar, Coronary atherosclerosis of unspecified type of vessel, eklutna or graft 414.00 ; Unspecified essential hypertension 401.9 ; Thoracic or lumbosacral neuritis or radiculitis, unspecified 724.4 and Other convulsions 780.39 [facility] [place] [facility] [address] [facility] [id number] [place] [address] 14 Jan, 2015 [facility] [place] [facility] [address] [facility] [id number] [place] [address] 13 Jan, 2015 [facility] [place] [facility] [id number] [place] [address] Nov, 2014 [facility] [place] [facility] [address] [facility] [id number] [place] [address] Nov, 2014 [facility] [place] [facility] [address] [facility] [id number] [place] [address] Nov, 2014 [facility] [place] [facility] [id number] [place] [address] Nov, 2014 [facility] [place] [facility] [address] [place] [address] 16 Nov, 2014 [facility] [place] [facility] [id number] [address] Nov, 2014 [facility] [place] [facility] [address] [address] Nov, 2014 [facility] [place] [facility] [address], [place] [address] Nov, 2014 [facility] [place] [facility] [address] [address] Nov, 2014 [facility] [place] [facility] [address] [facility] [id number], [place] [address] Nov, 2014 [facility] [place] [facility] [address], [place] [address] Sep, [facility] [place] [facility] [address] [facility] [id number], [place] [address] Sep, [facility] [place] [facility] [address], [place] [address] Aug, [facility] [place] [facility] [address] [id number] [place] [address] Aug, [facility] [place] [facility] [address] [id number] [place] [address] Aug, [facility] [place] [facility] [address] [id number] [place] [address] Aug, [facility] [place] [facility] [address] [id number] [place] [address] Jul, [facility] [place] [facility] [address] [id number] [place] [address] Jul, [facility] [place] [facility] [address] [id number] [place] [address] Jul, [facility] [place] [facility] [address] [id number] [place] [address] Jul, [facility] [place] [facility] [address] [id number] [place] [address] Jun, [facility] [place] [facility] [address] [id number] [place] [address] Jun, [facility] [place] [facility] [address] [id number] [place] [address] Jun, [facility] [place] [facility] [address] [id number] [place] [address] May, [facility] [place] [facility] [address] [id number] [place] [address] May, [facility] [place] [facility] [address] [id number] [place] [address] May, [facility] [place] [facility] [address] [id number] [place] [address] May, [facility] [place] [facility] [address] [id number] [place] [address] May, [facility] [place] [facility] [address] [id number] [place] [address] May, [facility] [place] [facility] [address] [id number] [place] [address] May, [facility] [place] [facility] [address] [id number] [place] [address] May, [facility] [place] [facility] [address] [id number] [place] [address] February, [facility] [place] [facility] [address] [id number] [place] [address] February, [facility] [place] [facility] [address] [id number] [place] [address] Jan, [facility] [place] [facility] [address] [id number] [place] [address] Jan, [facility] [place] [facility] [address] [id number] [place] [address] Jan, [facility] [place] [facility] [address] [id number] [place] [address] Jan, [facility] [place] [facility] [address] [id number] [place] [address] Nov, [facility] [place] [facility] [address] [id number] [place] [address] Nov, [facility] [place] [facility] [address] [id number] [place] [address] Nov, [facility] [place] [facility] [address] [id number] [place] [address] Nov, [facility] [place] [facility] [address] [id number] [place] [address] Sep, [facility] [place] [facility] [address] [id number] [place] [address] Sep, [facility] [place] [facility] [address] [id number] [place] [address] Sep, [facility] [place] [facility] [address] [id number] [place] [address] Sep, [facility] [address] [id number] [place] [address] Sep, [facility] [address] [id number] [place] [address] Sep, [facility] [address] [id number] [place] [address] Jul, [facility] [address] [id number] [place] [address] Jul, [facility] [address] [id number] [place] [address] Jun, [facility] [address] [id number] [place] [address] Jun, [facility] [address] [id number] [place] [address] Jun, [facility] [address] [id number] [place] [address] May, [facility] [address] [place] [id number] May, [facility] [address] [id number] [place] [address] May, [facility] [address] [id number] [place] [address] May, [facility] [address] [id number] [place] [address] May, [facility] [address] [id number] [place] [address] May, [facility] [address] [id number] [place] [address] May, [facility] [address] [id number] [place] [address] Apr, [facility] [place] [facility] [address] [id number] [place] [address] 30 Apr, 2013 [facility] [address] [id number] [place] [address] Apr, [facility] [place] [facility] [address] [id number] [place] [address] Apr, [facility] [address] [id number] [place] [address] Mar, [facility] [place] [facility] [address] [id number] [place] [address] February, [facility] [place] [facility] [address] [id number] [place] [address] Jan, [facility] [address] [id number] [place] [address] Dec, [facility] [place] [facility] [address] [id number] [place] [address] Dec, [facility] [address] [id number] [place] [address] Dec, [facility] [place] [facility] [address] [id number] [place] [address] Nov, [facility] [place] [facility] [address] [id number] [place] [address] Nov, [facility] [place] [facility] [address] [id number] [place] [address] Nov, [facility] [place] [facility] [address] [id number] [place] [address] Oct, [facility] [place] [facility] [address] [id number] [place] [address] Oct, [facility] [place] [facility] [address] [id number] [place] [address] Sep, [facility] [place] [facility] [address] [id number] [place] [address] Sep, [facility] [place] [facility] [address] [id number] [place] [address] Sep, [facility] [place] [facility] [address] [id number] [place] [address] Sep, [facility] [place] [facility] [address] [id number] [place] [address] Sep, [facility] [place] [facility] [address] [id number] [place] [address] Sep, [facility] [place] [facility] [address] [id number] [place] [address] Aug, [facility] [place] [facility] [address] [id number] [place] [address] Aug, [facility] [place] [facility] [address] [id number] [place] [address] Aug, [facility] [place] [facility] [address] [id number] [place] [address] Aug, [facility] [place] [facility] [address] [id number] [place] [address] Aug, [facility] [place] [facility] [address] [id number] [place] [address] Aug, [facility] [place] [facility] [address] [id number] [place] [address] Aug, [facility] [place] [facility] [address] [id number], [place] [address] Aug, [facility] [place] [facility] [address] [id number] [place] [address] Aug, [facility] [place] [facility] [address] [id number] [place] [address] Aug, [facility] [place] [facility] [address] [id number] [place] [address] Jul, [facility] [place] [facility] [address] [id number] [place] [address] 29 Jul, 2011 [facility] [place] [facility] [address] [id number] [place] [address] Jul, 2011 [facility] [place] [facility] [address] [id number] [place] [address] Jul, [facility] [place] [facility] [address] [id number] [place] [address] Jul, [facility] [place] [facility] [address] [id number] [place] [address] 24 Jul, 2012 [facility] [place] [facility] [address] [id number] [place] [address], [place] [address] Jul, [facility] [place] [facility] [address] [id number] [place] [address] Jul, [facility] [place] [facility] [address] [id number] [place] [address] 18 Jul, 2012 [facility] [place] [facility] [address] [id number] [place] [address] Jul, [facility] [place] [facility] [address] [id number] [place] [address] Jul, [facility] [place] [facility] [address] [id number] [place] [address] Jul, [facility] [place] [facility] [address] [id number] [place] [address] 17 Jul, 2012 [facility] [place] [facility] [address] [id number] [place] [address] Jul, [facility] [place] [facility] [address] [id number] [place] [address] 02 Jul, 2012 [facility] [place] [facility] [address] [id number] [place] [address] 28 Jun, 2012 [facility] [place] [facility] [address] [id number] [place] [address] 24 Jun, 2012 [facility] [place] [facility] [address] [id number] [place] [address] Jun, [facility] [place] [facility] [address] [id number] [place] [address] May, [facility] [place] [facility] [address] [id number] [place] [address] May, [facility] [place] [facility] [address] [id number] [place] [address] Mar, [facility] [place] [facility] [address] [id number] [place] [address] Mar, [facility] [place] [facility] [address] [id number] [place] [address] February, [facility] [place] [facility] [address] [id number] [place] [address] February, [facility] [place] [facility] [address] [id number] [place] [address] Nov, [facility] [place] [facility] [address] [id number] [place] [address] Oct, [facility] [place] [facility] [address] [id number] [place] [address] Oct, [facility] [place] [facility] [address] [id number] [place] [address] Oct, [facility] [place] [facility] [address] [id number] [place] [address] Aug, [facility] [place] [facility] [address] [id number] [place] [address] Jul, [facility] [place] [facility] [address] [id number] [place] [address] Sep, [facility] [place] [facility] [address] [id number] [place] [address] Aug, [facility] [place] [facility] [address] [id number], [place] [address] Jul, [facility] [address], [place] [address] Apr, [facility] [address] [place] [address] February, [facility] [address], [place] [address] Sep, [facility] [id number] [place] [address] Sep, [facility] [id number] [place] [address] Sep, [facility] [id number] [place] [address] Apr, [facility] [id number] [place] [address] Mar, [facility] [id number] [place] [address] February, [facility] [id number] [place] [address] Jan, [facility] [address] [place] [address] Jul, IMMUNIZATIONS No Known Immunizations SOCIAL HISTORY Never Assessed REASON FOR VISIT [facility] PLAN OF CARE VITAL SIGNS MEDICATIONS Medication Instructions Dosage Frequency Start Date End Date Duration Status fluticasone 50 mcg/actuation 2 sprays by Nasal route 1 time per day Nov, Active Prevacid 30 mg take 1 capsule (30 mg) by oral route once daily before a meal Sep, Active Gabapentin 300 mg 1 capsule by Oral route 3 times per day Nov, Active morphine 15 mg take 1 tablet by Oral route every 6 hours as needed PRN Nov, Active Flexeril 10 mg 1 tablet by Oral route 3 times per day PRN muscle spasm May, Active Metoprolol Succinate 50 mg take 1 tablet (50 mg) by oral route once daily Nov, Active Phenobarbital 97.2 mg take 1 tablet by Oral route 1 time per day February, Active PredniSONE 20 mg 1 tablet by Oral route 2 times per day for 5 day(s) Jun, Active Lidocaine 5 %(700 mg/patch) 1 Patch by Topical route 12 times per hour PRN Nov, Active Albuterol 90 mcg/actuation 2 puffs by Inhalation route 4 times per day PRN Sep, Active Doxycycline Hyclate 100 mg 1 tablet by Oral route 2 times per day for 10 days Jun, Active MS Contin 30 mg take 1 tablet (30 mg) by oral route every 12 hours Nov, Active Aspirin 650 mg 1 Tablet by Oral route 6 times per hour Nov, Active Flagyl 500 mg 1 tablet by Oral route 2 times per day for 10 days Jul, Active Ferrous Sulfate 325 mg (65 mg iron) 1 tablet by Oral route 1 time per day Nov, Active Lorazepam 0.5 mg 1 Tablet by Oral route 3 times per day Nov, Active Advair Diskus 100 mcg-50 mcg 1 puffs by Inhalation route 2 times per day Nov, Active Clindamycin HCl 150 mg take 2 capsules (300 mg) by oral route every 6 hours for 10 day(s) February, Active Bisacodyl 10 mg 1 Suppository by Rectal route 1 time per day PRN Nov, Active Polyethylene Glycol 3350 17 gram 1 Pack by Oral route 2 times per day Nov, Active tramadol 50 mg 0.5 Tablet by Oral route 8 times per hour PRN Nov, Active RESULTS No Results PROCEDURES No Known procedures INSTRUCTIONS MEDICATIONS ADMINISTERED No Known Medications MEDICAL (GENERAL) HISTORY Type Description Date Medical History 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
--- OUTSIDE RECORDS SUMMARY | 2019-05-04 08:48 | XMS REPORT ---
Author Author Migration, Doctor Organization [facility] Address Unknown Phone Unavailable Care Team Providers Care Pen Tester Name Role Phone Migration, Doctor Unavailable Unavailable PROBLEMS Type Condition ICD9-CM Code PSI38-HY Code Onset Dates Condition Status SNOMED Code Problem Thoracic neuritis M54.14 Active 79599099 Problem Lumbar neuritis M54.16 Active 302390151 Problem Hypertension, benign I10 Active 62474469 Problem Mood disorder F39 Active 95635037 Problem Intracranial injury, without loss of consciousness, subsequent encounter S06.9X0D Active 185701742 Problem Seasonal allergic rhinitis, unspecified trigger J30.2 Active 915959673 Problem Cardiomyopathy I42.9 Active 59272130 Problem GERD (gastroesophageal reflux disease) K21.9 Active 377140770 Problem Epileptic seizure, generalized G40.309 Active 35572142 Problem Ventricular arrhythmia I49.9 Active 42468040 ALLERGIES No Information ENCOUNTERS Encounter Location Date Diagnosis [facility] [id number] [place] [address] Dec, Seizures R56.9 [facility] [address] [address] 18 Nov, 2018 Dysuria R30.0 and Urinary tract infection without hematuria, site unspecified N39.0 [facility] [id number] [place] [address] Nov, [facility] [id number] [place] [address] Nov, Seizures R56.9 [facility] [address] [place] [id number] [place] [address] Sep, Seizures R56.9 [facility] [id number] [place] [address] Sep, Seasonal allergic rhinitis, unspecified trigger J30.2 [facility] [id number] [place] [address] Aug, Neck pain on left side M54.2 ; Mood disorder F39 and GERD (gastroesophageal reflux disease) K21.9 [facility] [id number] [place] [address] Aug, Seizures R56.9 [facility] [address] [address] Aug, Mood disorder F39 ; Neck pain on left side M54.2 and Hypertension, benign I10 [facility] [address] [address] Aug, [facility] [address] [address] Aug, [facility] [address] [address] Jul, [facility] [id number] [place] [address] Jul, Hypertension, benign I10 [facility] [address] [address] Jul, [facility] [id number] [place] [address] Jul, Thoracic neuritis M54.14 ; Pain of left leg M79.605 and Pain in right leg M79.604 [facility] [id number] [place] [address] Jun, Seizures R56.9 [facility] [address] [address] May, [facility] [id number] [place] [address] May, [facility] [address] [address] May, [facility] [id number] [place] [address] May, Seizures R56.9 [facility] [address] [address] May, [facility] [address] [address] May, Delirium R41.0 [facility] [address] [address] Apr, [facility] [address] [address] February, Ventricular arrhythmia I49.9 [place] [address] [address] February, [place] [address] [address] Dec, Thoracic neuritis M54.14 ; Lumbar neuritis M54.16 and Epileptic seizure, generalized G40.309 [place] [address] [address] Sep, Epileptic seizure, generalized G40.309 and Lumbar neuritis M54.16 [place] [id number] [place] [address] Aug, Thoracic neuritis M54.14 and Lumbar neuritis M54.16 [place] [id number] [place] [address] Jun, [place] [address] [address] Jun, Abscess of leg, left L02.416 [facility] [id number] [place] [address] May, Lumbar neuritis M54.16 ; Thoracic neuritis M54.14 ; Intracranial injury, without loss of consciousness, subsequent encounter S06.9X0D and Cardiomyopathy I42.9 [facility] [id number] [place] [address] Apr, Lumbar neuritis M54.16 [facility] [id number] [place] [address] Apr, [facility] [id number] [place] [address] Apr, Elevated liver enzymes R74.8 and Renal insufficiency N28.9 [facility] [id number] [place] [address] Apr, Lumbar neuritis M54.16 ; Thoracic neuritis M54.14 ; Hypertension, benign I10 ; Cardiomyopathy I42.9 and Epileptic seizure, generalized G40.309 [facility] [id number] [place] [address] Mar, [facility] [id number] [place] [address] February, [facility] [id number] [place] [address] February, Lumbar neuritis M54.16 ; Thoracic neuritis M54.14 ; Hypertension, benign I10 ; Cardiomyopathy I42.9 and Epileptic seizure, generalized G40.309 [facility] [id number] [place] [address] Dec, [facility] [id number] [place] [address] Sep, Epigastric mass R19.06 [facility] [id number] [place] [address] Sep, Epigastric mass R19.06 [facility] [id number] [place] [address] Sep, [facility] [id number] [place] [address] Sep, Epigastric mass R19.06 [place] [id number] [place] [address] 05 Sep, 2016 Epigastric mass R19.06 and Lung mass R91.8 [facility] [address] [address] 31 Jul, 2016 Shortness of breath R06.02 ; Dysuria R30.0 and Acute bronchitis, unspecified organism J20.9 [place] [address] [address] 31 Jul, 2016 [place] [address] [address] 15 Jun, 2016 Seizures R56.9 ; Thoracic neuritis M54.14 ; Lumbar neuritis M54.16 and GERD (gastroesophageal reflux disease) K21.9 [facility] [place] [address] [address] 27 Jan, 2016 [place] [address] [address] Sep, [place] [address] [address] 09 Sep, 2015 Intracranial injury, without loss of consciousness, subsequent encounter S06.9X0D ; Cardiomyopathy I42.9 ; GERD (gastroesophageal reflux disease) K21.9 ; Hypertension, benign I10 ; Thoracic neuritis M54.14 and Lumbar neuritis M54.16 [place] [id number] [place] [address] Mar, [place] [address] [address] Mar, Coronary atherosclerosis of unspecified type of vessel, [place] or graft 414.00 ; Unspecified essential hypertension 401.9 ; Thoracic or lumbosacral neuritis or radiculitis, unspecified 724.4 and Other convulsions 780.39 [place] [address] [address] 14 Jan, 2014 [facility] [place] [facility] [address] [id number] [place] [address] 13 Jan, 2014 [facility] [place] [facility] [address] [id number] [place] [address] Nov, 2014 [facility] [place] [facility] [address] [facility] [id number] [place] [address] Nov, 2014 [facility] [place] [facility] [address] [facility] [id number] [place] [address] Nov, 2014 [facility] [place] [facility] [address] [id number] [place] [address] Nov, 2014 [facility] [place] [facility] [address] [facility] [id number] [place] [address] Nov, 2014 [facility] [place] [facility] [address] [facility] [id number] [place] [address] 16 Nov, 2014 [facility] [place] [facility] [address] [facility] [id number] [place] [address] 09 Nov, 2014 [facility] [place] [facility] [address] [facility] [id number] [place] [address] Nov, 2014 [facility] [place] [facility] [address] [facility] [id number] [place] [address] Nov, 2014 [facility] [place] [facility] [address] [facility] [id number] [place] [address] Nov, 2014 [facility] [place] [facility] [address] [facility] [id number] [place] [address] Sep, [facility] [place] [facility] [address] [facility] [id number] [place] [address] Sep, [facility] [place] [facility] [address] [facility] [id number] [place] [address] Aug, [facility] [place] [facility] [address] [facility] [id number] [place] [address] Aug, [facility] [place] [facility] [address] [id number] [place] [address] Aug, [facility] [place] [facility] [address] [id number] [place] [address] Aug, [facility] [place] [facility] [address] [id number] [place] [address] Jul, [facility] [place] [facility] [address] [id number] [place] [address] Jul, [facility] [place] [facility] [address] [id number] [place] [address] Jul, [facility] [place] [facility] [address] [id number] [place] [address] Jul, [facility] [place] [facility] [address] [id number] [place] [address] Jun, [facility] [place] [facility] [address] [id number] [place] [address] Jun, [facility] [place] [facility] [address] [id number] [place] [address] Jun, [facility] [place] [facility] [address] [id number] [place] [address] May, [facility] [place] [facility] [address] [id number] [place] [address] May, [facility] [place] [facility] [address] [id number] [place] [address] May, [facility] [place] [facility] [address] [id number] [place] [address] May, [facility] [place] [facility] [address] [id number] [place] [address] May, [facility] [place] [facility] [address] [id number] [place] [address] May, [facility] [place] [facility] [address] [id number] [place] [address] May, [facility] [place] [facility] [address] [id number] [place] [address] May, [facility] [place] [facility] [address] [id number] [place] [address] February, [facility] [place] [facility] [address] [id number] [place] [address] February, [facility] [place] [facility] [address] [id number] [place] [address] Jan, [facility] [place] [facility] [address] [id number] [place] [address] Jan, [facility] [place] [facility] [address] [id number] [place] [address] Jan, [facility] [place] [facility] [address] [id number] [place] [address] Jan, [facility] [place] [facility] [address] [id number] [place] [address] Nov, [facility] [place] [facility] [address] [id number] [place] [address] Nov, [facility] [place] [facility] [address] [id number] [place] [address] Nov, [facility] [place] [facility] [address] [id number] [place] [address] Nov, [facility] [place] [facility] [address] [id number] [place] [address] Sep, [facility] [place] [facility] [address] [id number] [place] [address] Sep, [facility] [place] [facility] [address] [id number] [place] [address] Sep, [facility] [place] [facility] [address] [id number] [place] [address] Sep, [facility] [place] [facility] [address] [id number] [place] [address] Sep, [facility] [address] [id number] [place] [address] Sep, [facility] [address] [id number] [place] [address] Jul, [facility] [address] [id number] [place] [address] Jul, [facility] [address] [id number] [place] [address] Jun, [facility] [address] [id number] [place] [address] Jun, [facility] [address] [id number] [place] [address] Jun, [facility] [address] [facility] [id number] [place] [address] May, [facility] [address] [place] [id number] May, [facility] [address] [id number] [place] [address] May, [facility] [address] [facility] [id number] [place] [address] May, [facility] [address] [id number] [place] [address] May, [facility] [address] [id number] [place] [address] May, [facility] [address] [id number] [place] [address] May, [facility] [address] [id number] [place] [address] Apr, [facility] [address] [id number] [place] [address] Apr, [facility] [place] [facility] [address] [id number] [place] [address] Apr, [facility] [address] [id number] [place] [address] Apr, [facility] [place] [facility] [address] [id number] [place] [address] Mar, [facility] [address] [id number] [place] [address] February, [facility] [address] [id number] [place] [address] Jan, [facility] [address] [id number] [place] [address] Dec, [facility] [address] [id number] [place] [address] Dec, [facility] [address] [id number] [place] [address] Dec, [facility] [address] [id number] [place] [address] Nov, [facility] [address] [id number] [place] [address] Nov, [facility] [address] [id number] [place] [address] Nov, [facility] [address] [id number] [place] [address] Oct, [facility] [place] [facility] [address] [id number] [place] [address] Oct, [facility] [place] [facility] [address] [id number] [place] [address] Sep, [facility] [place] [facility] [address] [id number] [place] [address] Sep, [facility] [place] [facility] [address] [id number] [place] [address] Sep, [facility] [place] [facility] [address] [id number] [place] [address] Sep, [facility] [place] [facility] [address] [id number] [place] [address] Sep, [facility] [place] [facility] [address] [id number] [place] [address] Sep, [facility] [place] [facility] [address] [id number] [place] [address] Aug, [facility] [place] [facility] [address] [id number] [place] [address] Aug, [facility] [place] [facility] [address] [id number] [place] [address] Aug, [facility] [place] [facility] [address] [id number] [place] [address] Aug, [facility] [place] [facility] [address] [id number] [place] [address] Aug, [facility] [place] [facility] [address] [id number] [place] [address] Aug, [facility] [place] [facility] [address] [id number] [place] [address] Aug, [facility] [place] [facility] [address] [id number], [place] [address] Aug, [facility] [place] [facility] [address] [id number], [place] [address] Aug, [facility] [place] [facility] [address] [id number] [place] [address] Aug, [facility] [place] [facility] [address] [id number] [place] [address] Jul, [facility] [place] [facility] [address] [id number] [place] [address] Jul, [facility] [place] [facility] [address] [id number] [place] [address] Jul, 2011 [facility] [place] [facility] [address] [id number] [place] [address] Jul, [facility] [place] [facility] [address] [id number] [place] [address] 24 Jul, 2012 [facility] [place] [facility] [address] [id number] [place] [address] 24 Jul, 2012 [facility] [place] [facility] [address] [id number] [place] [address] 23 Jul, 2012 [facility] [place] [facility] [address] [id number] [place] [address], [place] [address] 22 Jul, 2012 [facility] [place] [facility] [address] [id number] [place] [address] 18 Jul, 2012 [facility] [place] [facility] [address] [id number] [place] [address] Jul, [facility] [place] [facility] [address] [id number] [place] [address] 17 Jul, 2012 [facility] [place] [facility] [address] [id number] [place] [address] 17 Jul, 2012 [facility] [place] [facility] [address] [id number] [place] [address] 17 Jul, 2012 [facility] [place] [facility] [address] [id number] [place] [address] 03 Jul, 2012 [facility] [place] [facility] [address] [id number] [place] [address] 02 Jul, 2012 [facility] [place] [facility] [address] [id number] [place] [address] 28 Jun, 2012 [facility] [place] [facility] [address] [id number] [place] [address] 24 Jun, 2012 [facility] [place] [facility] [address] [id number] [place] [address] Jun, [facility] [place] [facility] [address] [id number] [place] [address] May, [facility] [place] [facility] [address] [id number] [place] [address] May, [facility] [place] [facility] [address] [id number] [place] [address] Mar, [facility] [place] [facility] [address] [id number] [place] [address] Mar, [facility] [place] [facility] [address] [id number] [place] [address] February, [facility] [place] [facility] [address] [id number] [place] [address] February, [facility] [place] [facility] [address] [id number] [place] [address] Nov, [facility] [place] [facility] [address] [id number] [place] [address] Oct, [facility] [place] [facility] [address] [id number] [place] [address] Oct, [facility] [place] [facility] [address] [id number] [place] [address] Oct, [facility] [place] [facility] [address] [id number] [place] [address] Aug, [facility] [place] [facility] [address] [id number] [place] [address] Jul, [facility] [place] [facility] [address] [id number] [place] [address] Sep, [facility] [place] [facility] [address] [id number] [place] [address] Aug, [facility] [place] [facility] [address] [id number] [place] [address] Jul, [facility] [place] [facility] [id number] [address] 14 Apr, 2010 [facility] [id number] [address] February, [facility] [id number] [place] [address] Sep, [facility] [id number] [place] [id number] Sep, [facility] [id number] [place] [id number] Sep, [facility] [id number] [place] [address] Apr, [facility] [id number] [place] [address] Mar, [facility] [id number] [place] [address] February, [facility] [id number] [place] [id number] Jan, [facility] [id number] [place] [id number] Jul, IMMUNIZATIONS No Known Immunizations SOCIAL HISTORY Never Assessed [place] [place] VITAL SIGNS MEDICATIONS Unknown Medications RESULTS No Results PROCEDURES No Known procedures INSTRUCTIONS MEDICATIONS ADMINISTERED No Known Medications MEDICAL (GENERAL) HISTORY Type Description Date Medical History Post-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
--- OUTSIDE RECORDS SUMMARY | 2019-05-04 08:48 | XMS REPORT ---
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 Name Role Phone Migration, Doctor Unavailable Unavailable PROBLEMS Type Condition ICD9-CM Code DHD79-DL Code Onset Dates Condition Status SNOMED Code Problem Thoracic neuritis M54.14 Active 42061973 Problem Lumbar neuritis M54.16 Active 856273527 Problem Hypertension, benign I10 Active 34663932 Problem Mood disorder F39 Active 86757175 Problem Intracranial injury, without loss of consciousness, subsequent encounter S06.9X0D Active 971276930 Problem Seasonal allergic rhinitis, unspecified trigger J30.2 Active 571504399 Problem Cardiomyopathy I42.9 Active 77655129 Problem GERD (gastroesophageal reflux disease) K21.9 Active 722189032 Problem Epileptic seizure, generalized G40.309 Active 93577569 Problem Ventricular arrhythmia I49.9 Active [id number] ALLERGIES No Information ENCOUNTERS Encounter Location Date Diagnosis [facility] [id number] [place] [address] Dec, Seizures R56.9 [facility] [address] [address] 18 Nov, 2018 Dysuria R30.0 and Urinary tract infection without hematuria, site unspecified N39.0 [facility] [id number] [place] [address] Nov, [facility] [id number] [place] [address] Nov, Seizures R56.9 [facility] [address] [place] [id number] [place] [address] Sep, Seizures R56.9 [facility] [id number] [place] [address] Sep, Seasonal allergic rhinitis, unspecified trigger J30.2 [facility] [id number] [place] [address] Aug, Neck pain on left side M54.2 ; Mood disorder F39 and GERD (gastroesophageal reflux disease) K21.9 [facility] [id number] [place] [address] Aug, Seizures R56.9 [facility] [address] [address] Aug, Mood disorder F39 ; Neck pain on left side M54.2 and Hypertension, benign I10 [facility] [address] [address] Aug, [facility] [address] [address] Aug, [facility] [address] [address] Jul, [facility] [id number] [place] [address] Jul, Hypertension, benign I10 [facility] [address] [address] Jul, [facility] [id number] [place] [address] Jul, Thoracic neuritis M54.14 ; Pain of left leg M79.605 and Pain in right leg M79.604 [facility] [id number] [place] [address] Jun, Seizures R56.9 [facility] [address] [address] May, [facility] [id number] [place] [address] May, [facility] [address] [address] May, [facility] [id number] [place] [address] May, Seizures R56.9 [facility] [address] [address] May, [facility] [address] [address] May, Delirium R41.0 [facility] [address] [address] Apr, [facility] [address] [address] February, Ventricular arrhythmia I49.9 [place] [address] [address] February, [place] [address] [address] Dec, Thoracic neuritis M54.14 ; Lumbar neuritis M54.16 and Epileptic seizure, generalized G40.309 [place] [address] [address] Sep, Epileptic seizure, generalized G40.309 and Lumbar neuritis M54.16 [place] [id number] [place] [address] Aug, Thoracic neuritis M54.14 and Lumbar neuritis M54.16 [place] [id number] [place] [address] Jun, [place] [address] [address] Jun, Abscess of leg, left L02.416 [facility] [id number] [place] [address] May, Lumbar neuritis M54.16 ; Thoracic neuritis M54.14 ; Intracranial injury, without loss of consciousness, subsequent encounter S06.9X0D and Cardiomyopathy I42.9 [facility] [id number] [place] [address] Apr, Lumbar neuritis M54.16 [facility] [id number] [place] [address] Apr, [facility] [id number] [place] [address] Apr, Elevated liver enzymes R74.8 and Renal insufficiency N28.9 [facility] [id number] [place] [address] Apr, Lumbar neuritis M54.16 ; Thoracic neuritis M54.14 ; Hypertension, benign I10 ; Cardiomyopathy I42.9 and Epileptic seizure, generalized G40.309 [facility] [id number] [place] [address] Mar, [facility] [id number] [place] [address] February, [facility] [id number] [place] [address] February, Lumbar neuritis M54.16 ; Thoracic neuritis M54.14 ; Hypertension, benign I10 ; Cardiomyopathy I42.9 and Epileptic seizure, generalized G40.309 [facility] [address] [place] [address] Dec, [facility] [id number] [place] [address] Sep, Epigastric mass R19.06 [facility] [id number] [place] [address] Sep, Epigastric mass R19.06 [facility] [id number] [place] [address] Sep, [facility] [id number] [place] [address] Sep, Epigastric mass R19.06 [place] [id number] [place] [address] 05 Sep, 2016 Epigastric mass R19.06 and Lung mass R91.8 [facility] [address] [address] 31 Jul, 2016 Shortness of breath R06.02 ; Dysuria R30.0 and Acute bronchitis, unspecified organism J20.9 [place] [address] [address] 31 Jul, 2016 [place] [address] [address] 15 Jun, 2016 Seizures R56.9 ; Thoracic neuritis M54.14 ; Lumbar neuritis M54.16 and GERD (gastroesophageal reflux disease) K21.9 [facility] [place] [address] [address] 27 Jan, 2016 [place] [address] [address] Sep, [place] [address] [address] 09 Sep, 2015 Intracranial injury, without loss of consciousness, subsequent encounter S06.9X0D ; Cardiomyopathy I42.9 ; GERD (gastroesophageal reflux disease) K21.9 ; Hypertension, benign I10 ; Thoracic neuritis M54.14 and Lumbar neuritis M54.16 [place] [id number] [place] [address] Mar, [place] [address] [address] Mar, Coronary atherosclerosis of unspecified type of vessel, lower brule or graft 414.00 ; Unspecified essential hypertension 401.9 ; Thoracic or lumbosacral neuritis or radiculitis, unspecified 724.4 and Other convulsions 780.39 [place] [address] [address] 14 Jan, 2014 [facility] [place] [facility] [address] [id number] [place] [address] 13 Jan, 2014 [facility] [place] [facility] [address] [id number] [place] [address] Nov, 2014 [facility] [place] [facility] [address] [facility] [id number] [place] [address] Nov, 2014 [facility] [place] [facility] [address] [facility] [id number] [place] [address] Nov, 2014 [facility] [place] [facility] [address] [id number] [place] [address] Nov, 2014 [facility] [place] [facility] [address] [facility] [id number] [place] [address] Nov, 2014 [facility] [place] [facility] [address] [facility] [id number] [place] [address] 16 Nov, 2014 [facility] [place] [facility] [address] [facility] [id number] [place] [address] 09 Nov, 2014 [facility] [place] [facility] [address] [facility] [id number] [place] [address] Nov, 2014 [facility] [place] [facility] [address] [facility] [id number] [place] [address] Nov, 2014 [facility] [place] [facility] [address] [facility] [id number] [place] [address] Nov, 2014 [facility] [place] [facility] [address] [facility] [id number] [place] [address] Sep, [facility] [place] [facility] [address] [facility] [id number] [place] [address] Sep, [facility] [place] [facility] [address] [facility] [id number] [place] [address] Aug, [facility] [place] [facility] [address] [facility] [id number] [place] [address] Aug, [facility] [place] [facility] [address] [id number] [place] [address] Aug, [facility] [place] [facility] [address] [id number] [place] [address] Aug, [facility] [place] [facility] [address] [id number] [place] [address] Jul, [facility] [place] [facility] [address] [id number] [place] [address] Jul, [facility] [place] [facility] [address] [id number] [place] [address] Jul, [facility] [place] [facility] [address] [id number] [place] [address] Jul, [facility] [place] [facility] [address] [id number] [place] [address] Jun, [facility] [place] [facility] [address] [id number] [place] [address] Jun, [facility] [place] [facility] [address] [id number] [place] [address] Jun, [facility] [place] [facility] [address] [id number] [place] [address] May, [facility] [place] [facility] [address] [id number] [place] [address] May, [facility] [place] [facility] [address] [id number] [place] [address] May, [facility] [place] [facility] [address] [id number] [place] [address] May, [facility] [place] [facility] [address] [id number] [place] [address] May, [facility] [place] [facility] [address] [id number] [place] [address] May, [facility] [place] [facility] [address] [id number] [place] [address] May, [facility] [place] [facility] [address] [id number] [place] [address] May, [facility] [place] [facility] [address] [id number] [place] [address] February, [facility] [place] [facility] [address] [id number] [place] [address] February, [facility] [place] [facility] [address] [id number] [place] [address] Jan, [facility] [place] [facility] [address] [id number] [place] [address] Jan, [facility] [place] [facility] [address] [id number] [place] [address] Jan, [facility] [place] [facility] [address] [id number] [place] [address] Jan, [facility] [place] [facility] [address] [id number] [place] [address] Nov, [facility] [place] [facility] [address] [id number] [place] [address] Nov, [facility] [place] [facility] [address] [id number] [place] [address] Nov, [facility] [place] [facility] [address] [id number] [place] [address] Nov, [facility] [place] [facility] [address] [id number] [place] [address] Sep, [facility] [place] [facility] [address] [id number] [place] [address] Sep, [facility] [place] [facility] [address] [id number] [place] [address] Sep, [facility] [place] [facility] [address] [id number] [place] [address] Sep, [facility] [place] [facility] [address] [id number] [place] [address] Sep, [facility] [address] [id number] [place] [address] Sep, [facility] [address] [id number] [place] [address] Jul, [facility] [address] [id number] [place] [address] Jul, [facility] [address] [id number] [place] [address] Jun, [facility] [address] [id number] [place] [address] Jun, [facility] [address] [id number] [place] [address] Jun, [facility] [address] [facility] [id number] [place] [address] May, [facility] [address] [place] [id number] May, [facility] [address] [id number] [place] [address] May, [facility] [address] [facility] [id number] [place] [address] May, [facility] [address] [id number] [place] [address] May, [facility] [address] [id number] [place] [address] May, [facility] [address] [id number] [place] [address] May, [facility] [address] [id number] [place] [address] Apr, [facility] [address] [id number] [place] [address] Apr, [facility] [place] [facility] [address] [id number] [place] [address] Apr, [facility] [address] [id number] [place] [address] Apr, [facility] [place] [facility] [address] [id number] [place] [address] Mar, [facility] [address] [id number] [place] [address] February, [facility] [address] [id number] [place] [address] Jan, [facility] [address] [id number] [place] [address] Dec, [facility] [address] [id number] [place] [address] Dec, [facility] [address] [id number] [place] [address] Dec, [facility] [address] [id number] [place] [address] Nov, [facility] [address] [id number] [place] [address] Nov, [facility] [address] [id number] [place] [address] Nov, [facility] [address] [id number] [place] [address] Oct, [facility] [place] [facility] [address] [id number] [place] [address] Oct, [facility] [place] [facility] [address] [id number] [place] [address] Sep, [facility] [place] [facility] [address] [id number] [place] [address] Sep, [facility] [place] [facility] [address] [id number] [place] [address] Sep, [facility] [place] [facility] [address] [id number] [place] [address] Sep, [facility] [place] [facility] [address] [id number] [place] [address] Sep, [facility] [place] [facility] [address] [id number] [place] [address] Sep, [facility] [place] [facility] [address] [id number] [place] [address] Aug, [facility] [place] [facility] [address] [id number] [place] [address] Aug, [facility] [place] [facility] [address] [id number] [place] [address] Aug, [facility] [place] [facility] [address] [id number] [place] [address] Aug, [facility] [place] [facility] [address] [id number] [place] [address] Aug, [facility] [place] [facility] [address] [id number] [place] [address] Aug, [facility] [place] [facility] [address] [id number] [place] [address] Aug, [facility] [place] [facility] [address] [id number], [place] [address] Aug, [facility] [place] [facility] [address] [id number], [place] [address] Aug, [facility] [place] [facility] [address] [id number] [place] [address] Aug, [facility] [place] [facility] [address] [id number] [place] [address] Jul, [facility] [place] [facility] [address] [id number] [place] [address] Jul, [facility] [place] [facility] [address] [id number] [place] [address] Jul, 2011 [facility] [place] [facility] [address] [id number] [place] [address] Jul, [facility] [place] [facility] [address] [id number] [place] [address] 24 Jul, 2012 [facility] [place] [facility] [address] [id number] [place] [address] 24 Jul, 2012 [facility] [place] [facility] [address] [id number] [place] [address] 23 Jul, 2012 [facility] [place] [facility] [id number] [place] [address], [place] [address] 22 Jul, 2012 [facility] [place] [facility] [address] [id number] [place] [address] 18 Jul, 2012 [facility] [place] [facility] [address] [id number] [place] [address] Jul, [facility] [place] [facility] [address] [id number] [place] [address] 17 Jul, 2012 [facility] [place] [facility] [address] [id number] [place] [address] 17 Jul, 2012 [facility] [place] [facility] [address] [id number] [place] [address] 17 Jul, 2012 [facility] [place] [facility] [address] [id number] [place] [address] 03 Jul, 2012 [facility] [place] [facility] [address] [id number] [place] [address] 02 Jul, 2012 [facility] [place] [facility] [address] [id number] [place] [address] 28 Jun, 2012 [facility] [place] [facility] [address] [id number] [place] [address] 24 Jun, 2012 [facility] [place] [facility] [address] [id number] [place] [address] Jun, [facility] [place] [facility] [address] [id number] [place] [address] May, [facility] [place] [facility] [address] [id number] [place] [address] May, [facility] [place] [facility] [address] [id number] [place] [address] Mar, [facility] [place] [facility] [address] [id number] [place] [address] Mar, [facility] [place] [facility] [address] [id number] [place] [address] February, [facility] [place] [facility] [address] [id number] [place] [address] February, [facility] [place] [facility] [address] [id number] [place] [address] Nov, [facility] [place] [facility] [address] [id number] [place] [address] Oct, [facility] [place] [facility] [address] [id number] [place] [address] Oct, [facility] [place] [facility] [address] [id number] [place] [address] Oct, [facility] [place] [facility] [address] [id number] [place] [address] Aug, [facility] [place] [facility] [address] [id number] [place] [address] Jul, [facility] [place] [facility] [address] [id number] [place] [address] Sep, [facility] [place] [facility] [address] [id number] [place] [address] Aug, [facility] [place] [facility] [address] [id number] [place] [address] Jul, [facility] [place] [facility] [id number] [address] 14 Apr, 2010 [facility] [id number] [address] February, [facility] [id number] [place] [address] Sep, [facility] [id number] [place] [address] Sep, [facility] [id number] [place] [address] Sep, [facility] [id number] [place] [address] Apr, [facility] [id number] [place] [address] Mar, [facility] [id number] [place] [address] February, [facility] [id number] [place] [address] Jan, [facility] [id number] [place] [address] Jul, IMMUNIZATIONS No Known Immunizations SOCIAL HISTORY Never Assessed REASON FOR VISIT EMR-[facility] PLAN OF CARE VITAL SIGNS MEDICATIONS Unknown Medications RESULTS No Results PROCEDURES No Known procedures INSTRUCTIONS MEDICATIONS ADMINISTERED No Known Medications MEDICAL (GENERAL) HISTORY Type Description Date Medical History Post-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
--- OUTSIDE RECORDS SUMMARY | 2019-05-04 08:49 | XMS REPORT ---
Author Author Migration, Doctor Organization [facility] Address Unknown Phone Unavailable Care Team Providers Care Sexual Assault Counselor Name Role Phone Migration, Doctor Unavailable Unavailable PROBLEMS Type Condition ICD9-CM Code [id number] Code Onset Dates Condition Status SNOMED Code Problem Thoracic neuritis M54.14 Active 44756135 Problem Lumbar neuritis M54.16 Active 227817399 Problem Hypertension, benign I10 Active 74369525 Problem Mood disorder F39 Active 21333401 Problem Intracranial injury, without loss of consciousness, subsequent encounter S06.9X0D Active 002331442 Problem Seasonal allergic rhinitis, unspecified trigger J30.2 Active 598129492 Problem Cardiomyopathy I42.9 Active 96523425 Problem GERD (gastroesophageal reflux disease) K21.9 Active 053211327 Problem Epileptic seizure, generalized G40.309 Active 76065501 Problem Ventricular arrhythmia I49.9 Active 31838806 ALLERGIES No Information ENCOUNTERS Encounter Location Date Diagnosis [facility] [id number] [place] [address] Dec, Seizures R56.9 [facility] [address] [address] 18 Nov, 2018 Dysuria R30.0 and Urinary tract infection without hematuria, site unspecified N39.0 [facility] [id number] [place] [address] Nov, [facility] [id number] [place] [address] Nov, Seizures R56.9 [facility] [id number] [place] [address] Sep, Seizures R56.9 [facility] [id number] [place] [address] Sep, Seasonal allergic rhinitis, unspecified trigger J30.2 [facility] [id number] [place] [address] Aug, Neck pain on left side M54.2 ; Mood disorder F39 and GERD (gastroesophageal reflux disease) K21.9 [facility] [id number] [place] [address] Aug, Seizures R56.9 [facility] [address] [address] Aug, Mood disorder F39 ; Neck pain on left side M54.2 and Hypertension, benign I10 [facility] [address] [address] Aug, [facility] [address] [address] Aug, [facility] [address] [address] Jul, [facility] [id number] [place] [address] Jul, Hypertension, benign I10 [facility] [address] [address] Jul, [facility] [id number] [place] [address] Jul, Thoracic neuritis M54.14 ; Pain of left leg M79.605 and Pain in right leg M79.604 [facility] [id number] [place] [address] Jun, Seizures R56.9 [facility] [address] [address] May, [facility] [id number] [place] [address] May, [facility] [address] [address] May, [facility] [id number] [place] [address] May, Seizures R56.9 [facility] [address] [address] May, [facility] [address] [address] May, Delirium R41.0 [facility] [address] [address] Apr, [facility] [address] [address] February, Ventricular arrhythmia I49.9 [place] [address] [address] February, [place] [address] [address] Dec, Thoracic neuritis M54.14 ; Lumbar neuritis M54.16 and Epileptic seizure, generalized G40.309 [place] [address] [address] Sep, Epileptic seizure, generalized G40.309 and Lumbar neuritis M54.16 [place] [id number] [place] [address] Aug, Thoracic neuritis M54.14 and Lumbar neuritis M54.16 [place] [id number] [place] [address] Jun, [place] [address] [address] Jun, Abscess of leg, left L02.416 [facility] [id number] [place] [address] May, Lumbar neuritis M54.16 ; Thoracic neuritis M54.14 ; Intracranial injury, without loss of consciousness, subsequent encounter S06.9X0D and Cardiomyopathy I42.9 [facility] [id number] [place] [address] Apr, Lumbar neuritis M54.16 [facility] [id number] [place] [address] Apr, [facility] [id number] [place] [address] Apr, Elevated liver enzymes R74.8 and Renal insufficiency N28.9 [facility] [id number] [place] [address] Apr, Lumbar neuritis M54.16 ; Thoracic neuritis M54.14 ; Hypertension, benign I10 ; Cardiomyopathy I42.9 and Epileptic seizure, generalized G40.309 [facility] [id number] [place] [address] Mar, [facility] [id number] [place] [address] February, [facility] [id number] [place] [address] February, Lumbar neuritis M54.16 ; Thoracic neuritis M54.14 ; Hypertension, benign I10 ; Cardiomyopathy I42.9 and Epileptic seizure, generalized G40.309 [facility] [address] [place] [address] Dec, [facility] [id number] [place] [address] Sep, Epigastric mass R19.06 [facility] [id number] [place] [address] Sep, Epigastric mass R19.06 [facility] [id number] [place] [address] Sep, [facility] [id number] [place] [address] Sep, Epigastric mass R19.06 [place] [id number] [place] [address] 05 Sep, 2016 Epigastric mass R19.06 and Lung mass R91.8 [facility] [address] [address] 31 Jul, 2016 Shortness of breath R06.02 ; Dysuria R30.0 and Acute bronchitis, unspecified organism J20.9 [place] [address] [address] 31 Jul, 2016 [place] [address] [address] 15 Jun, 2016 Seizures R56.9 ; Thoracic neuritis M54.14 ; Lumbar neuritis M54.16 and GERD (gastroesophageal reflux disease) K21.9 [facility] [place] [address] [address] 27 Jan, 2016 [place] [address] [address] Sep, [place] [address] [address] 09 Sep, 2015 Intracranial injury, without loss of consciousness, subsequent encounter S06.9X0D ; Cardiomyopathy I42.9 ; GERD (gastroesophageal reflux disease) K21.9 ; Hypertension, benign I10 ; Thoracic neuritis M54.14 and Lumbar neuritis M54.16 [place] [id number] [place] [address] Mar, [place] [address] [address] Mar, Coronary atherosclerosis of unspecified type of vessel, [place] or graft 414.00 ; Unspecified essential hypertension 401.9 ; Thoracic or lumbosacral neuritis or radiculitis, unspecified 724.4 and Other convulsions 780.39 [place] [address] [address] 14 Jan, 2014 [facility] [place] [facility] [address] [id number] [place] [address] 13 Jan, 2014 [facility] [place] [facility] [address] [id number] [place] [address] Nov, 2014 [facility] [place] [facility] [address] [facility] [id number] [place] [address] Nov, 2014 [facility] [place] [facility] [address] [facility] [id number] [place] [address] Nov, 2014 [facility] [place] [facility] [address] [id number] [place] [address] Nov, 2014 [facility] [place] [facility] [address] [facility] [id number] [place] [address] Nov, 2014 [facility] [place] [facility] [address] [facility] [id number] [place] [address] 16 Nov, 2014 [facility] [place] [facility] [address] [facility] [id number] [place] [address] 09 Nov, 2014 [facility] [place] [facility] [address] [facility] [id number] [place] [address] Nov, 2014 [facility] [place] [facility] [address] [facility] [id number] [place] [address] Nov, 2014 [facility] [place] [facility] [address] [facility] [id number] [place] [address] Nov, 2014 [facility] [place] [facility] [address] [facility] [id number] [place] [address] Sep, [facility] [place] [facility] [address] [facility] [id number] [place] [address] Sep, [facility] [place] [facility] [address] [facility] [id number] [place] [address] Aug, [facility] [place] [facility] [address] [facility] [id number] [place] [address] Aug, [facility] [place] [facility] [address] [id number] [place] [address] Aug, [facility] [place] [facility] [address] [id number] [place] [address] Aug, [facility] [place] [facility] [address] [id number] [place] [address] Jul, [facility] [place] [facility] [address] [id number] [place] [address] Jul, [facility] [place] [facility] [address] [id number] [place] [address] Jul, [facility] [place] [facility] [address] [id number] [place] [address] Jul, [facility] [place] [facility] [address] [id number] [place] [address] Jun, [facility] [place] [facility] [address] [id number] [place] [address] Jun, [facility] [place] [facility] [address] [id number] [place] [address] Jun, [facility] [place] [facility] [address] [id number] [place] [address] May, [facility] [place] [facility] [address] [id number] [place] [address] May, [facility] [place] [facility] [address] [id number] [place] [address] May, [facility] [place] [facility] [address] [id number] [place] [address] May, [facility] [place] [facility] [address] [id number] [place] [address] May, [facility] [place] [facility] [address] [id number] [place] [address] May, [facility] [place] [facility] [address] [id number] [place] [address] May, [facility] [place] [facility] [address] [id number] [place] [address] May, [facility] [place] [facility] [address] [id number] [place] [address] February, [facility] [place] [facility] [address] [id number] [place] [address] February, [facility] [place] [facility] [address] [id number] [place] [address] Jan, [facility] [place] [facility] [address] [id number] [place] [address] Jan, [facility] [place] [facility] [address] [id number] [place] [address] Jan, [facility] [place] [facility] [address] [id number] [place] [address] Jan, [facility] [place] [facility] [address] [id number] [place] [address] Nov, [facility] [place] [facility] [address] [id number] [place] [address] Nov, [facility] [place] [facility] [address] [id number] [place] [address] Nov, [facility] [place] [facility] [address] [id number] [place] [address] Nov, [facility] [place] [facility] [address] [id number] [place] [address] Sep, [facility] [place] [facility] [address] [id number] [place] [address] Sep, [facility] [place] [facility] [address] [id number] [place] [address] Sep, [facility] [place] [facility] [address] [id number] [place] [address] Sep, [facility] [place] [facility] [address] [id number] [place] [address] Sep, [facility] [address] [id number] [place] [address] Sep, [facility] [address] [id number] [place] [address] Jul, [facility] [address] [id number] [place] [address] Jul, [facility] [address] [id number] [place] [address] Jun, [facility] [address] [id number] [place] [address] Jun, [facility] [address] [id number] [place] [address] Jun, [facility] [address] [facility] [id number] [place] [address] May, [facility] [address] [place] [id number] May, [facility] [address] [id number] [place] [address] May, [facility] [address] [facility] [id number] [place] [address] May, [facility] [address] [id number] [place] [address] May, [facility] [address] [id number] [place] [address] May, [facility] [address] [id number] [place] [address] May, [facility] [address] [id number] [place] [address] Apr, [facility] [address] [id number] [place] [address] Apr, [facility] [place] [facility] [address] [id number] [place] [address] Apr, [facility] [address] [id number] [place] [address] Apr, [facility] [place] [facility] [address] [id number] [place] [address] Mar, [facility] [address] [id number] [place] [address] February, [facility] [address] [id number] [place] [address] Jan, [facility] [address] [id number] [place] [address] Dec, [facility] [address] [id number] [place] [address] Dec, [facility] [address] [id number] [place] [address] Dec, [facility] [address] [id number] [place] [address] Nov, [facility] [address] [id number] [place] [address] Nov, [facility] [address] [id number] [place] [address] Nov, [facility] [address] [id number] [place] [address] Oct, [facility] [place] [facility] [address] [id number] [place] [address] Oct, [facility] [place] [facility] [address] [id number] [place] [address] Sep, [facility] [place] [facility] [address] [id number] [place] [address] Sep, [facility] [place] [facility] [address] [id number] [place] [address] Sep, [facility] [place] [facility] [address] [id number] [place] [address] Sep, [facility] [place] [facility] [address] [id number] [place] [address] Sep, [facility] [place] [facility] [address] [id number] [place] [address] Sep, [facility] [place] [facility] [address] [id number] [place] [address] Aug, [facility] [place] [facility] [address] [id number] [place] [address] Aug, [facility] [place] [facility] [address] [id number] [place] [address] Aug, [facility] [place] [facility] [address] [id number] [place] [address] Aug, [facility] [place] [facility] [address] [id number] [place] [address] Aug, [facility] [place] [facility] [address] [id number] [place] [address] Aug, [facility] [place] [facility] [address] [id number] [place] [address] Aug, [facility] [place] [facility] [address] [id number] [address] Aug, [facility] [place] [facility] [address] [id number], [place] [address] Aug, [facility] [place] [facility] [address] [id number] [place] [address] Aug, [facility] [place] [facility] [address] [id number] [place] [address] Jul, [facility] [place] [facility] [address] [id number] [place] [address] Jul, [facility] [place] [facility] [address] [id number] [place] [address] Jul, 2011 [facility] [place] [facility] [address] [id number] [place] [address] Jul, [facility] [place] [facility] [address] [id number] [place] [address] 24 Jul, 2012 [facility] [place] [facility] [address] [id number] [place] [address] 24 Jul, 2012 [facility] [place] [facility] [address] [id number] [place] [address] 23 Jul, 2012 [facility] [place] [facility] [address] [id number] [place] [address], [place] [address] 22 Jul, 2012 [facility] [place] [facility] [address] [id number] [place] [address] 18 Jul, 2012 [facility] [place] [facility] [address] [id number] [place] [address] Jul, [facility] [place] [facility] [address] [id number] [place] [address] 17 Jul, 2012 [facility] [place] [facility] [address] [id number] [place] [address] 17 Jul, 2012 [facility] [place] [facility] [address] [id number] [place] [address] 17 Jul, 2012 [facility] [place] [facility] [address] [id number] [place] [address] 03 Jul, 2012 [facility] [place] [facility] [address] [id number] [place] [address] 02 Jul, 2012 [facility] [place] [facility] [address] [id number] [place] [address] 28 Jun, 2012 [facility] [place] [facility] [address] [id number] [place] [address] 24 Jun, 2012 [facility] [place] [facility] [address] [id number] [place] [address] Jun, [facility] [place] [facility] [address] [id number] [place] [address] May, [facility] [place] [facility] [address] [id number] [place] [address] May, [facility] [place] [facility] [address] [id number] [place] [address] Mar, [facility] [place] [facility] [address] [id number] [place] [address] Mar, [facility] [place] [facility] [address] [id number] [place] [address] February, [facility] [place] [facility] [address] [id number] [place] [address] February, [facility] [place] [facility] [address] [id number] [place] [address] Nov, [facility] [place] [facility] [address] [id number] [place] [address] Oct, [facility] [place] [facility] [address] [id number] [place] [address] Oct, [facility] [place] [facility] [address] [id number] [place] [address] Oct, [facility] [place] [facility] [address] [id number] [place] [address] Aug, [facility] [place] [facility] [address] [id number] [place] [address] Jul, [facility] [place] [facility] [address] [id number] [place] [address] Sep, [facility] [place] [facility] [address] [id number] [place] [address] Aug, [facility] [place] [facility] [address] [id number] [place] [address] Jul, [facility] [place] [facility] [id number] [address] 14 Apr, 2010 [facility] [id number] [address] February, [facility] [id number] [place] [address] Sep, [facility] [id number] [place] [address] Sep, [facility] [id number] [place] [address] Sep, [facility] [id number] [place] [address] Apr, [facility] [id number] [place] [address] Mar, [facility] [id number] [place] [address] February, [facility] [id number] [place] [address] Jan, [facility] [id number] [place] [address] Jul, IMMUNIZATIONS No Known Immunizations SOCIAL HISTORY Never Assessed [place] [place] VITAL SIGNS MEDICATIONS Unknown Medications RESULTS No Results PROCEDURES No Known procedures INSTRUCTIONS MEDICATIONS ADMINISTERED No Known Medications MEDICAL (GENERAL) HISTORY Type Description Date Medical History Post-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
--- OUTSIDE RECORDS SUMMARY | 2019-05-04 08:49 | XMS REPORT ---
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 Role Phone Migration, Doctor Unavailable Unavailable PROBLEMS Type Condition ICD9-CM Code [id number] Code Onset Dates Condition Status SNOMED Code Problem Thoracic neuritis M54.14 Active 99816340 Problem Lumbar neuritis M54.16 Active 247770851 Problem Hypertension, benign I10 Active 50672917 Problem Mood disorder F39 Active 36146821 Problem Intracranial injury, without loss of consciousness, subsequent encounter S06.9X0D Active 181995467 Problem Seasonal allergic rhinitis, unspecified trigger J30.2 Active 607750836 Problem Cardiomyopathy I42.9 Active 58066517 Problem GERD (gastroesophageal reflux disease) K21.9 Active 783689819 Problem Epileptic seizure, generalized G40.309 Active 79841101 Problem Ventricular arrhythmia I49.9 Active 10213464 ALLERGIES No Information ENCOUNTERS Encounter Location Date Diagnosis [facility] [id number] [place] [address] Dec, Seizures R56.9 [facility] [address] [address] 18 Nov, 2018 Dysuria R30.0 and Urinary tract infection without hematuria, site unspecified N39.0 [facility] [id number] [place] [address] Nov, [facility] [id number] [place] [address] Nov, Seizures R56.9 [facility] [address] [place] [id number] [place] [address] Sep, Seizures R56.9 [facility] [id number] [place] [address] Sep, Seasonal allergic rhinitis, unspecified trigger J30.2 [facility] [id number] [place] [address] Aug, Neck pain on left side M54.2 ; Mood disorder F39 and GERD (gastroesophageal reflux disease) K21.9 [facility] [id number] [place] [address] Aug, Seizures R56.9 [facility] [address] [address] Aug, Mood disorder F39 ; Neck pain on left side M54.2 and Hypertension, benign I10 [facility] [address] [address] Aug, [facility] [address] [address] Aug, [facility] [address] [address] Jul, [facility] [id number] [place] [address] Jul, Hypertension, benign I10 [facility] [address] [address] Jul, [facility] [id number] [place] [address] Jul, Thoracic neuritis M54.14 ; Pain of left leg M79.605 and Pain in right leg M79.604 [facility] [id number] [place] [address] Jun, Seizures R56.9 [facility] [address] [address] May, [facility] [id number] [place] [address] May, [facility] [address] [address] May, [facility] [id number] [place] [address] May, Seizures R56.9 [facility] [address] [address] May, [facility] [address] [address] May, Delirium R41.0 [facility] [address] [address] Apr, [facility] [address] [address] February, Ventricular arrhythmia I49.9 [place] [address] [address] February, [place] [address] [address] Dec, Thoracic neuritis M54.14 ; Lumbar neuritis M54.16 and Epileptic seizure, generalized G40.309 [place] [address] [address] Sep, Epileptic seizure, generalized G40.309 and Lumbar neuritis M54.16 [place] [id number] [place] [address] Aug, Thoracic neuritis M54.14 and Lumbar neuritis M54.16 [place] [address] [id number] [place] [address] Jun, [place] [address] [address] Jun, Abscess of leg, left L02.416 [facility] [id number] [place] [address] May, Lumbar neuritis M54.16 ; Thoracic neuritis M54.14 ; Intracranial injury, without loss of consciousness, subsequent encounter S06.9X0D and Cardiomyopathy I42.9 [facility] [id number] [place] [address] Apr, Lumbar neuritis M54.16 [facility] [id number] [place] [address] Apr, [facility] [id number] [place] [address] Apr, Elevated liver enzymes R74.8 and Renal insufficiency N28.9 [facility] [id number] [place] [address] Apr, Lumbar neuritis M54.16 ; Thoracic neuritis M54.14 ; Hypertension, benign I10 ; Cardiomyopathy I42.9 and Epileptic seizure, generalized G40.309 [facility] [id number] [place] [address] Mar, [facility] [id number] [place] [address] February, [facility] [id number] [place] [address] February, Lumbar neuritis M54.16 ; Thoracic neuritis M54.14 ; Hypertension, benign I10 ; Cardiomyopathy I42.9 and Epileptic seizure, generalized G40.309 [facility] [address] [place] [address] Dec, [facility] [id number] [place] [address] Sep, Epigastric mass R19.06 [facility] [id number] [place] [address] Sep, Epigastric mass R19.06 [facility] [address] [id number] [place] [address] Sep, [facility] [id number] [place] [address] Sep, Epigastric mass R19.06 [place] [id number] [place] [address] 05 Sep, 2016 Epigastric mass R19.06 and Lung mass R91.8 [facility] [address] [address] 31 Jul, 2016 Shortness of breath R06.02 ; Dysuria R30.0 and Acute bronchitis, unspecified organism J20.9 [place] [address] [address] 31 Jul, 2016 [place] [address] [address] 15 Jun, 2016 Seizures R56.9 ; Thoracic neuritis M54.14 ; Lumbar neuritis M54.16 and GERD (gastroesophageal reflux disease) K21.9 [facility] [place] [address] [address] 27 Jan, 2016 [place] [address] [address] Sep, [place] [address] [address] 09 Sep, 2015 Intracranial injury, without loss of consciousness, subsequent encounter S06.9X0D ; Cardiomyopathy I42.9 ; GERD (gastroesophageal reflux disease) K21.9 ; Hypertension, benign I10 ; Thoracic neuritis M54.14 and Lumbar neuritis M54.16 [place] [address] [address] [id number] [place] [address] Mar, [place] [address] [address] Mar, Coronary atherosclerosis of unspecified type of vessel, [place] or graft 414.00 ; Unspecified essential hypertension 401.9 ; Thoracic or lumbosacral neuritis or radiculitis, unspecified 724.4 and Other convulsions 780.39 [place] [address] [address] 14 Jan, 2014 [facility] [place] [facility] [address] [id number] [place] [address] 13 Jan, 2014 [facility] [place] [facility] [address] [id number] [place] [address] Nov, 2014 [facility] [place] [facility] [address] [facility] [id number] [place] [address] Nov, 2014 [facility] [place] [facility] [address] [facility] [id number] [place] [address] Nov, 2014 [facility] [place] [facility] [address] [id number] [place] [address] Nov, 2014 [facility] [place] [facility] [address] [facility] [id number] [place] [address] Nov, 2014 [facility] [place] [facility] [address] [facility] [id number] [place] [address] 16 Nov, 2014 [facility] [place] [facility] [address] [facility] [id number] [place] [address] 09 Nov, 2014 [facility] [place] [facility] [address] [facility] [id number] [place] [address] Nov, 2014 [facility] [place] [facility] [address] [facility] [id number] [place] [address] Nov, 2014 [facility] [place] [facility] [address] [facility] [id number] [place] [address] Nov, 2014 [facility] [place] [facility] [address] [facility] [id number] [place] [address] Sep, [facility] [place] [facility] [address] [facility] [id number] [place] [address] Sep, [facility] [place] [facility] [address] [facility] [id number] [place] [address] Aug, [facility] [place] [facility] [address] [facility] [id number] [place] [address] Aug, [facility] [place] [facility] [address] [id number] [place] [address] Aug, [facility] [place] [facility] [address] [id number] [place] [address] Aug, [facility] [place] [facility] [address] [id number] [place] [address] Jul, [facility] [place] [facility] [address] [id number] [place] [address] Jul, [facility] [place] [facility] [address] [id number] [place] [address] Jul, [facility] [place] [facility] [address] [id number] [place] [address] Jul, [facility] [place] [facility] [address] [id number] [place] [address] Jun, [facility] [place] [facility] [address] [id number] [place] [address] Jun, [facility] [place] [facility] [address] [id number] [place] [address] Jun, [facility] [place] [facility] [address] [id number] [place] [address] May, [facility] [place] [facility] [address] [id number] [place] [address] May, [facility] [place] [facility] [address] [id number] [place] [address] May, [facility] [place] [facility] [address] [id number] [place] [address] May, [facility] [place] [facility] [address] [id number] [place] [address] May, [facility] [place] [facility] [address] [id number] [place] [address] May, [facility] [place] [facility] [address] [id number] [place] [address] May, [facility] [place] [facility] [address] [id number] [place] [address] May, [facility] [place] [facility] [address] [id number] [place] [address] February, [facility] [place] [facility] [address] [id number] [place] [address] February, [facility] [place] [facility] [address] [id number] [place] [address] Jan, [facility] [place] [facility] [address] [id number] [place] [address] Jan, [facility] [place] [facility] [address] [id number] [place] [address] Jan, [facility] [place] [facility] [address] [id number] [place] [address] Jan, [facility] [place] [facility] [address] [id number] [place] [address] Nov, [facility] [place] [facility] [address] [id number] [place] [address] Nov, [facility] [place] [facility] [address] [id number] [place] [address] Nov, [facility] [place] [facility] [address] [id number] [place] [address] Nov, [facility] [place] [facility] [address] [id number] [place] [address] Sep, [facility] [place] [facility] [address] [id number] [place] [address] Sep, [facility] [place] [facility] [address] [id number] [place] [address] Sep, [facility] [place] [facility] [address] [id number] [place] [address] Sep, [facility] [place] [facility] [address] [id number] [place] [address] Sep, [facility] [address] [id number] [place] [address] Sep, [facility] [address] [id number] [place] [address] Jul, [facility] [address] [id number] [place] [address] Jul, [facility] [address] [id number] [place] [address] Jun, [facility] [address] [id number] [place] [address] Jun, [facility] [address] [id number] [place] [address] Jun, [facility] [address] [facility] [id number] [place] [address] May, [facility] [address] [place] [id number] May, [facility] [address] [id number] [place] [address] May, [facility] [address] [facility] [id number] [place] [address] May, [facility] [address] [id number] [place] [address] May, [facility] [address] [id number] [place] [address] May, [facility] [address] [id number] [place] [address] May, [facility] [address] [id number] [place] [address] Apr, [facility] [address] [id number] [place] [address] Apr, [facility] [place] [facility] [address] [id number] [place] [address] Apr, [facility] [address] [id number] [place] [address] Apr, [facility] [place] [facility] [address] [id number] [place] [address] Mar, [facility] [address] [id number] [place] [address] February, [facility] [address] [id number] [place] [address] Jan, [facility] [address] [id number] [place] [address] Dec, [facility] [address] [id number] [place] [address] Dec, [facility] [address] [id number] [place] [address] Dec, [facility] [address] [id number] [place] [address] Nov, [facility] [address] [id number] [place] [address] Nov, [facility] [address] [id number] [place] [address] Nov, [facility] [address] [id number] [place] [address] Oct, [facility] [place] [facility] [address] [id number] [place] [address] Oct, [facility] [place] [facility] [address] [id number] [place] [address] Sep, [facility] [place] [facility] [address] [id number] [place] [address] Sep, [facility] [place] [facility] [address] [id number] [place] [address] Sep, [facility] [place] [facility] [address] [id number] [place] [address] Sep, [facility] [place] [facility] [address] [id number] [place] [address] Sep, [facility] [place] [facility] [address] [id number] [place] [address] Sep, [facility] [place] [facility] [address] [id number] [place] [address] Aug, [facility] [place] [facility] [address] [id number] [place] [address] Aug, [facility] [place] [facility] [address] [id number] [place] [address] Aug, [facility] [place] [facility] [address] [id number] [place] [address] Aug, [facility] [place] [facility] [address] [id number] [place] [address] Aug, [facility] [place] [facility] [address] [id number] [place] [address] Aug, [facility] [place] [facility] [address] [id number] [place] [address] Aug, [facility] [place] [facility] [address] [id number] [address] Aug, [facility] [place] [facility] [address] [id number] [address] Aug, [facility] [place] [facility] [address] [id number] [place] [address] Aug, [facility] [place] [facility] [address] [id number] [place] [address] Jul, [facility] [place] [facility] [address] [id number] [place] [address] Jul, [facility] [place] [facility] [address] [id number] [place] [address] Jul, 2011 [facility] [place] [facility] [address] [id number] [place] [address] Jul, [facility] [place] [facility] [address] [id number] [place] [address] 24 Jul, 2012 [facility] [place] [facility] [address] [id number] [place] [address] 24 Jul, 2012 [facility] [place] [facility] [address] [id number] [place] [address] 23 Jul, 2012 [facility] [place] [facility] [address] [id number] [place] [address], [place] [address] 22 Jul, 2012 [facility] [place] [facility] [address] [id number] [place] [address] 18 Jul, 2012 [facility] [place] [facility] [address] [id number] [place] [address] Jul, [facility] [place] [facility] [address] [id number] [place] [address] 17 Jul, 2012 [facility] [place] [facility] [address] [id number] [place] [address] 17 Jul, 2012 [facility] [place] [facility] [address] [id number] [place] [address] 17 Jul, 2012 [facility] [place] [facility] [address] [id number] [place] [address] 03 Jul, 2012 [facility] [place] [facility] [address] [id number] [place] [address] 02 Jul, 2012 [facility] [place] [facility] [address] [id number] [place] [address] 28 Jun, 2012 [facility] [place] [facility] [address] [id number] [place] [address] 24 Jun, 2012 [facility] [place] [facility] [address] [id number] [place] [address] Jun, [facility] [place] [facility] [address] [id number] [place] [address] May, [facility] [place] [facility] [address] [id number] [place] [address] May, [facility] [place] [facility] [address] [id number] [place] [address] Mar, [facility] [place] [facility] [address] [id number] [place] [address] Mar, [facility] [place] [facility] [address] [id number] [place] [address] February, [facility] [place] [facility] [address] [id number] [place] [address] February, [facility] [place] [facility] [address] [id number] [place] [address] Nov, [facility] [place] [facility] [address] [id number] [place] [address] Oct, [facility] [place] [facility] [address] [id number] [place] [address] Oct, [facility] [place] [facility] [address] [id number] [place] [address] Oct, [facility] [place] [facility] [address] [id number] [place] [address] Aug, [facility] [place] [facility] [address] [id number] [place] [address] Jul, [facility] [place] [facility] [address] [id number] [place] [address] Sep, [facility] [place] [facility] [address] [id number] [place] [address] Aug, [facility] [place] [facility] [address] [id number] [place] [address] Jul, [facility] [place] [facility] [id number] [address] 14 Apr, 2010 [facility] [id number] [address] February, [facility] [id number] [place] [id number] Sep, [facility] [id number] [place] [id number] Sep, [facility] [id number] [place] [id number] Sep, [facility] [id number] [place] [id number] Apr, [facility] [id number] [place] [id number] Mar, [facility] [id number] [place] [id number] February, [facility] [id number] [place] [id number] Jan, [facility] [id number] [place] [id number] Jul, IMMUNIZATIONS No Known Immunizations SOCIAL HISTORY Never Assessed [place]ASON FOR [place]ISIT [place] [place] VITAL SIGNS MEDICATIONS Unknown Medications RESULTS No Results PROCEDURES No Known procedures INSTRUCTIONS MEDICATIONS ADMINISTERED No Known Medications MEDICAL (GENERAL) HISTORY Type Description Date Medical History 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
--- OUTSIDE RECORDS SUMMARY | 2019-05-04 08:50 | XMS REPORT ---
Author Author TRACEE LANGE Organization [facility] Address [address] [place] [address] Care Team Providers Care Pattern Changer And Repairer Name Role Phone TRACEE LANGE Unavailable PROBLEMS Type Condition ICD9-CM Code ZLX26-LT Code Onset Dates Condition Status SNOMED Code Problem Thoracic neuritis M54.14 Active 23523595 Problem Hypertension, benign I10 Active 52746411 Problem Lumbar neuritis M54.16 Active 384098021 Problem Intracranial injury, without loss of consciousness, subsequent encounter S06.9X0D Active 389315758 Problem Seasonal allergic rhinitis, unspecified trigger J30.2 Active 930415620 Problem Mood disorder F39 Active 19057032 Problem GERD (gastroesophageal reflux disease) K21.9 Active 165348369 Problem Cardiomyopathy I42.9 Active 67931638 Problem Ventricular arrhythmia I49.9 Active 93623038 Problem Epileptic seizure, generalized G40.309 Active 18273849 ALLERGIES No Information ENCOUNTERS Encounter Location Date Diagnosis [facility] [id number] [place] [address] 10 Sep, 2018 Seasonal allergic rhinitis, unspecified trigger J30.2 [facility] [id number] [place] [address] 28 Aug, 2018 Neck pain on left side M54.2 ; Mood disorder F39 and GERD (gastroesophageal reflux disease) K21.9 [facility] [id number] [place] [address] 26 Aug, 2018 Seizures R56.9 [facility] [id number] [place] [address] 23 Aug, 2018 Mood disorder F39 ; Neck pain on left side M54.2 and Hypertension, benign I10 [facility] [address] [address] Aug, [facility] [id number] [place] [address] Aug, [facility] [id number] [place] [address] Jul, [facility] [id number] [place] [address] Jul, Hypertension, benign I10 [facility] [address] [address] Jul, [facility] [id number] [place] [address] Jul, Thoracic neuritis M54.14 ; Pain of left leg M79.605 and Pain in right leg M79.604 [facility] [id number] [place] [address] Jun, Seizures R56.9 [facility] [id number] [place] [address] May, [facility] [id number] [place] [address] May, [facility] [id number] [place] [address] May, [facility] [id number] [place] [address] May, Seizures R56.9 [facility] [id number] [place] [address] May, [facility] [id number] [place] [address] May, Delirium R41.0 [facility] [id number] [place] [address] Apr, [facility] [id number] [place] [address] February, Ventricular arrhythmia I49.9 [place] [address] [address] February, [place] [address] [address] Dec, Thoracic neuritis M54.14 ; Lumbar neuritis M54.16 and Epileptic seizure, generalized G40.309 [place] [address] [address] Sep, Epileptic seizure, generalized G40.309 and Lumbar neuritis M54.16 [place] [address] [address] Aug, Thoracic neuritis M54.14 and Lumbar neuritis M54.16 [place] [address] [address] Jun, [place] [address] [address] Jun, Abscess of leg, left L02.416 [place] [address] [address] May, Lumbar neuritis M54.16 ; Thoracic neuritis M54.14 ; Intracranial injury, without loss of consciousness, subsequent encounter S06.9X0D and Cardiomyopathy I42.9 [place] [id number] [place] [address] Apr, Lumbar neuritis M54.16 [place] [id number] [place] [address] Apr, [place] [address] [address] Apr, Elevated liver enzymes R74.8 and Renal insufficiency N28.9 [place] [id number] [place] [address] Apr, Lumbar neuritis M54.16 ; Thoracic neuritis M54.14 ; Hypertension, benign I10 ; Cardiomyopathy I42.9 and Epileptic seizure, generalized G40.309 [facility] [id number] [place] [address] Mar, [facility] [address] [address] February, [facility] [id number] [place] [address] February, Lumbar neuritis M54.16 ; Thoracic neuritis M54.14 ; Hypertension, benign I10 ; Cardiomyopathy I42.9 and Epileptic seizure, generalized G40.309 [place] [id number] [place] [address] Dec, [facility] [id number] [place] [address] Sep, Epigastric mass R19.06 [place] [address] [address] Sep, Epigastric mass R19.06 [place] [id number] [place] [address] Sep, [facility] [address] [address] Sep, Epigastric mass R19.06 [facility] [id number] [place] [address] Sep, Epigastric mass R19.06 and Lung mass R91.8 [facility] [id number] [place] [address] Jul, Shortness of breath R06.02 ; Dysuria R30.0 and Acute bronchitis, unspecified organism J20.9 [facility] [id number] [place] [address] Jul, [facility] [id number] [place] [address] Jun, Seizures R56.9 ; Thoracic neuritis M54.14 ; Lumbar neuritis M54.16 and GERD (gastroesophageal reflux disease) K21.9 [facility] [address] [address] Jan, [facility] [address] [address] Sep, [facility] [address] [address] Sep, Intracranial injury, without loss of consciousness, subsequent encounter S06.9X0D ; Cardiomyopathy I42.9 ; GERD (gastroesophageal reflux disease) K21.9 ; Hypertension, benign I10 ; Thoracic neuritis M54.14 and Lumbar neuritis M54.16 [facility] [address] [address] Mar, [facility] [address] [address] Mar, Coronary atherosclerosis of unspecified type of vessel, [place] or graft 414.00 ; Unspecified essential hypertension 401.9 ; Thoracic or lumbosacral neuritis or radiculitis, unspecified 724.4 and Other convulsions 780.39 [facility] [address] [address] Jan, [facility] [address] [address] Jan, [facility] [address] [address] Nov, [facility] [address] [address] Nov, [place] [address] [address] Nov, [facility] [address] [address] Nov, [facility] [place] [facility] [address] [facility] [id number] [place] [address] Nov, 2014 [facility] [place] [facility] [address] [id number] [place] [address] Nov, 2014 [facility] [place] [facility] [address] [id number] [place] [address] Nov, 2014 [facility] [place] [facility] [address] [id number] [place] [address] Nov, 2014 [facility] [place] [facility] [address] [id number] [place] [address] Nov, 2014 [facility] [place] [facility] [address] [id number] [place] [address] Nov, 2014 [facility] [place] [facility] [address] [facility] [id number] [place] [address] Sep, [facility] [place] [facility] [address] [facility] [id number] [place] [address] Sep, [facility] [place] [facility] [address] [id number] [place] [address] Aug, [facility] [place] [facility] [address] [facility] [id number] [place] [address] Aug, [facility] [place] [facility] [address] [facility] [id number] [place] [address] Aug, [facility] [place] [facility] [address] [id number] [place] [address] Aug, [facility] [place] [facility] [address] [id number] [place] [address] Jul, [facility] [place] [facility] [address] [id number] [place] [address] Jul, [facility] [place] [facility] [address] [id number] [place] [address] Jul, [facility] [place] [facility] [address] [id number] [place] [address] Jul, [facility] [place] [facility] [address] [id number] [place] [address] Jun, [facility] [place] [facility] [address] [id number] [place] [address] Jun, [facility] [place] [facility] [address] [id number] [place] [address] Jun, [facility] [place] [facility] [address] [id number] [place] [address] May, [facility] [place] [facility] [address] [id number] [place] [address] May, [facility] [place] [facility] [address] [id number] [place] [address] May, [facility] [place] [facility] [address] [id number] [place] [address] May, [facility] [place] [facility] [address] [id number] [place] [address] May, [facility] [place] [facility] [address] [id number] [place] [address] May, [facility] [place] [facility] [address] [id number] [place] [address] May, [facility] [place] [facility] [address] [id number] [place] [address] May, [facility] [place] [facility] [address] [id number] [place] [address] February, [facility] [place] [facility] [address] [id number] [place] [address] February, [facility] [place] [facility] [address] [id number] [place] [address] Jan, [facility] [place] [facility] [address] [id number] [place] [address] Jan, [facility] [place] [facility] [address] [id number] [place] [address] Jan, [facility] [place] [facility] [address] [id number] [place] [address] Jan, [facility] [place] [facility] [address] [id number] [place] [address] Nov, [facility] [place] [facility] [address] [id number] [place] [address] Nov, [facility] [place] [facility] [address] [id number] [place] [address] Nov, [facility] [place] [facility] [address] [id number] [place] [address] Nov, [facility] [place] [facility] [address] [id number] [place] [address] Sep, [facility] [place] [facility] [address] [id number] [place] [address] Sep, [facility] [place] [facility] [address] [id number] [place] [address] Sep, [facility] [place] [facility] [address] [id number] [place] [address] Sep, [facility] [place] [facility] [address] [facility] [id number] [place] [address] Sep, [facility] [place] [facility] [address] [facility] [id number] [place] [address] Sep, [facility] [place] [facility] [address] [id number] [place] [address] Jul, [facility] [place] [facility] [address] [id number] [place] [address] Jul, [facility] [place] [facility] [address] [id number] [place] [address] 30 Jun, 2013 [facility] [place] [facility] [address] [id number] [place] [address] Jun, [facility] [address] [id number] [place] [address] Jun, [facility] [address] [id number] [place] [address] May, [facility] [address] [facility] [id number] May, [facility] [address] [id number] [place] [address] May, [facility] [address] [id number] [place] [address] May, [facility] [address] [id number] [place] [address] May, [facility] [address] [id number] [place] [address] May, [facility] [address] [id number] [place] [address] May, [facility] [address] [id number] [place] [address] Apr, [facility] [address] [id number] [place] [address] Apr, [facility] [address] [id number] [place] [address] Apr, [facility] [address] [id number] [place] [address] Apr, [facility] [address] [id number] [place] [address] Mar, [facility] [address] [id number] [place] [address] February, [facility] [address] [id number] [place] [address] Jan, [facility] [address] [id number] [place] [address] Dec, [facility] [address] [id number] [place] [address] Dec, [facility] [address] [id number] [place] [address] Dec, [facility] [address] [id number] [place] [address] Nov, [facility] [place] [facility] [address] [id number] [place] [address] Nov, [facility] [address] [id number] [place] [address] Nov, [facility] [address] [id number] [place] [address] Oct, [facility] [address] [facility] [id number] [place] [address] Oct, [facility] [address] [id number] [place] [address] Sep, [facility] [address] [facility] [id number] [place] [address] Sep, [facility] [address] [facility] [id number] [place] [address] Sep, [facility] [address] [facility] [id number] [place] [address] Sep, [facility] [place] [facility] [address] [id number] [place] [address] Sep, [facility] [place] [facility] [address] [id number] [place] [address] Sep, [facility] [place] [facility] [address] [id number] [place] [address] Aug, [facility] [place] [facility] [address] [facility] [id number] [place] [address] Aug, [facility] [place] [facility] [address] [id number] [place] [address] Aug, [facility] [place] [facility] [address] [id number] [place] [address] Aug, [facility] [place] [facility] [address] [id number] [place] [address] Aug, [facility] [place] [facility] [address] [id number] [place] [address] Aug, [facility] [place] [facility] [address] [id number] [place] [address] Aug, [facility] [place] [facility] [address] [id number] [place] [address] Aug, [facility] [place] [facility] [address] [id number] [place] [address] Aug, [facility] [place] [facility] [address] [id number] [place] [address] Aug, [facility] [place] [facility] [address] [id number] [place] [address] Jul, [facility] [place] [facility] [address] [id number] [place] [address] Jul, [facility] [place] [facility] [address] [facility] [id number] [place] [address] Jul, [facility] [place] [facility] [address] [id number] [place] [address] Jul, [facility] [place] [facility] [address] [id number] [place] [address] Jul, [facility] [place] [facility] [address] [id number] [place] [address] Jul, [facility] [place] [facility] [address] [facility] [id number] [place] [address] Jul, [facility] [place] [facility] [address] [id number] [place] [address] Jul, [facility] [place] [facility] [address] [id number] [place] [address] Jul, [facility] [place] [facility] [address] [id number] [place] [address] Jul, [facility] [place] [facility] [address] [id number] [place] [address] Jul, [facility] [place] [facility] [address] [id number] [place] [address] Jul, [facility] [place] [facility] [address] [id number] [place] [address] Jul, [facility] [place] [facility] [address] [id number] [place] [address] Jul, [facility] [place] [facility] [address] [id number] [place] [address] Jul, [facility] [place] [facility] [address] [id number] [place] [address] Jun, [facility] [place] [facility] [address] [id number] [place] [address] 24 Jun, 2012 [facility] [place] [facility] [address] [id number] [place] [address] Jun, [facility] [place] [facility] [address] [id number], [place] [address] May, [facility] [place] [facility] [address] [id number], [place] [address] May, [facility] [place] [facility] [address] [id number] [place] [address] Mar, [facility] [place] [facility] [address] [id number], [place] [address] Mar, [facility] [place] [facility] [address] [id number] [place] [address] February, [facility] [place] [facility] [address] [id number] [place] [address] February, [facility] [address] [id number] [place] [address] Nov, [facility] [place] [facility] [address] [id number] [place] [address] Oct, [facility] [place] [facility] [address] [id number] [place] [address] Oct, [facility] [place] [facility] [address] [id number] [place] [address] Oct, [facility] [place] [facility] [address] [id number] [place] [address] Aug, [facility] [place] [facility] [address] [id number] [place] [address] Jul, [facility] [place] [facility] [address] [id number] [place] [address] Sep, [facility] [place] [facility] [address] [id number] [place] [address] Aug, [facility] [place] [facility] [address] [id number] [place] [address] Jul, [facility] [place] [facility] [address] [facility] [id number] [place] [address] Apr, [facility] [place] [facility] [address] [id number] [place] [address] February, [facility] [place] [facility] [address] [id number] [place] [address] Sep, [facility] [place] [facility] [address] [id number] [place] [address] Sep, [facility] [place] [facility] [address] [id number] [place] [address] Sep, [facility] [place] [facility] [address] [id number] [place] [address] Apr, [facility] [address] [facility] [id number], [place] [address] Mar, [facility] [address] [facility] [id number], [place] [address] February, [facility] [address] [facility] [id number], [place] [address] Jan, [facility] [address] 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
--- OUTSIDE RECORDS SUMMARY | 2019-05-04 08:50 | XMS REPORT ---
Author Author TRACEE LANGE Organization [facility] Address [address] [place] [address] Care Team Providers Care Pharmacy Services Representative Name Role Phone TRACEE LANGE Unavailable PROBLEMS Type Condition ICD9-CM Code EGH30-UD Code Onset Dates Condition Status SNOMED Code Problem Intracranial injury, without loss of consciousness, subsequent encounter S06.9X0D Active 688771084 Problem Lumbar neuritis M54.16 Active 892733987 Problem Thoracic neuritis M54.14 Active 25687846 Problem Mood disorder F39 Active 87595227 Problem Ventricular arrhythmia I49.9 Active 79188109 Problem Cardiomyopathy I42.9 Active 82872907 Problem Hypertension, benign I10 Active 66845906 Problem Epileptic seizure, generalized G40.309 Active 57815513 Problem GERD (gastroesophageal reflux disease) K21.9 Active [id number] ALLERGIES No Information ENCOUNTERS Encounter Location Date Diagnosis [facility] [id number] [place] [id number] 28 Aug, 2018 Neck pain on left side M54.2 ; Mood disorder F39 and GERD (gastroesophageal reflux disease) K21.9 [facility] [id number] [place] [address] Aug, Seizures R56.9 [facility] [id number] [place] [address] Aug, Mood disorder F39 ; Neck pain on left side M54.2 and Hypertension, benign I10 [facility] [id number] [place] [address] 14 Aug, 2018 [facility] [id number] [place] [id number] 05 Aug, 2018 [facility] [address] [address] Jul, [facility] [id number] [place] [address] Jul, Hypertension, benign I10 [facility] [id number] [place] [address] Jul, [facility] [id number] [place] [address] Jul, Thoracic neuritis M54.14 ; Pain of left leg M79.605 and Pain in right leg M79.604 [facility] [id number] [place] [address] Jun, Seizures R56.9 [facility] [id number] [place] [address] May, [facility] [id number] [place] [address] May, [facility] [id number] [place] [address] May, [facility] [id number] [place] [address] May, Seizures R56.9 [facility] [id number] [place] [address] May, [facility] [id number] [place] [address] May, Delirium R41.0 [facility] [id number] [place] [address] Apr, [facility] [id number] [place] [address] February, Ventricular arrhythmia I49.9 [facility] [id number] [place] [address] February, [facility] [id number] [place] [address] Dec, Thoracic neuritis M54.14 ; Lumbar neuritis M54.16 and Epileptic seizure, generalized G40.309 [place] [address] [address] Sep, Epileptic seizure, generalized G40.309 and Lumbar neuritis M54.16 [place] [address] [address] Aug, Thoracic neuritis M54.14 and Lumbar neuritis M54.16 [place] [address] [address] Jun, [place] [address] [address] Jun, Abscess of leg, left L02.416 [place] [address] [address] May, Lumbar neuritis M54.16 ; Thoracic neuritis M54.14 ; Intracranial injury, without loss of consciousness, subsequent encounter S06.9X0D and Cardiomyopathy I42.9 [place] [address] [address] Apr, Lumbar neuritis M54.16 [place] [address] [address] Apr, [place] [address] [address] Apr, Elevated liver enzymes R74.8 and Renal insufficiency N28.9 [place] [address] [address] Apr, Lumbar neuritis M54.16 ; Thoracic neuritis M54.14 ; Hypertension, benign I10 ; Cardiomyopathy I42.9 and Epileptic seizure, generalized G40.309 [place] [address] [address] Mar, [place] [address] [address] February, [facility] [address] [address] February, Lumbar neuritis M54.16 ; Thoracic neuritis M54.14 ; Hypertension, benign I10 ; Cardiomyopathy I42.9 and Epileptic seizure, generalized G40.309 [place] [address] [address] Dec, [facility] [address] [address] Sep, Epigastric mass R19.06 [place] [address] [address] Sep, Epigastric mass R19.06 [place] [address] [address] Sep, [place] [address] [address] Sep, Epigastric mass R19.06 [place] [address] [address] Sep, Epigastric mass R19.06 and Lung mass R91.8 [facility] [address] [address] Jul, Shortness of breath R06.02 ; Dysuria R30.0 and Acute bronchitis, unspecified organism J20.9 [place] [address] [address] Jul, [place] [address] [address] Jun, Seizures R56.9 ; Thoracic neuritis M54.14 ; Lumbar neuritis M54.16 and GERD (gastroesophageal reflux disease) K21.9 [facility] [address] [address] Jan, [facility] [id number] [place] [address] Sep, [facility] [address] [address] Sep, Intracranial injury, without loss of consciousness, subsequent encounter S06.9X0D ; Cardiomyopathy I42.9 ; GERD (gastroesophageal reflux disease) K21.9 ; Hypertension, benign I10 ; Thoracic neuritis M54.14 and Lumbar neuritis M54.16 [facility] [id number] [place] [address] Mar, [facility] [address] [address] Mar, Coronary atherosclerosis of unspecified type of vessel, round valley or graft 414.00 ; Unspecified essential hypertension 401.9 ; Thoracic or lumbosacral neuritis or radiculitis, unspecified 724.4 and Other convulsions 780.39 [facility] [id number] [place] [address] Jan, [facility] [id number] [place] [address] Jan, [facility] [id number] [place] [address] Nov, [facility] [id number] [place] [address] Nov, [facility] [id number] [place] [address] Nov, [facility] [id number] [place] [address] Nov, [facility] [id number] [place] [address] Nov, [facility] [id number] [place] [address] Nov, [facility] [place] [facility] [address] [id number] [place] [address] Nov, 2014 [facility] [place] [facility] [address] [id number] [place] [address] Nov, 2014 [facility] [place] [facility] [address] [id number] [place] [address] Nov, 2014 [facility] [place] [facility] [address] [id number] [place] [address] Nov, 2014 [facility] [place] [facility] [address] [id number] [place] [address] Sep, [facility] [place] [facility] [address] [id number] [place] [address] Sep, [facility] [place] [facility] [address] [id number] [place] [address] Aug, [facility] [place] [facility] [address] [id number] [place] [address] Aug, [facility] [place] [facility] [address] [id number] [place] [address] Aug, [facility] [place] [facility] [address] [facility] [id number], [place] [address] Aug, [facility] [place] [facility] [address] [id number], [place] [address] Jul, [facility] [place] [facility] [address] [id number], [place] [address] Jul, [facility] [place] [facility] [address] [id number] [place] [address] Jul, [facility] [place] [facility] [address] [id number], [place] [address] Jul, [facility] [place] [facility] [address] [id number], [place] [address] Jun, [facility] [place] [facility] [address] [id number], [place] [address] Jun, [facility] [place] [facility] [address] [id number] [place] [address] Jun, [facility] [place] [facility] [address] [id number] [place] [address] May, [facility] [place] [facility] [address] [id number] [place] [address] May, [facility] [place] [facility] [address] [id number] [place] [address] May, [facility] [place] [facility] [address] [id number] [place] [address] May, [facility] [place] [facility] [address] [id number] [place] [address] May, [facility] [place] [facility] [address] [id number] [place] [address] May, [facility] [place] [facility] [address] [id number] [place] [address] May, [facility] [place] [facility] [address] [id number] [place] [address] May, [facility] [place] [facility] [address] [id number] [place] [address] February, [facility] [place] [facility] [address] [id number] [place] [address] February, [facility] [place] [facility] [address] [id number] [place] [address] Jan, [facility] [place] [facility] [address] [id number] [place] [address] Jan, [facility] [place] [facility] [address] [id number] [place] [address] Jan, [facility] [place] [facility] [address] [id number] [place] [address] Jan, [facility] [place] [facility] [address] [id number] [place] [address] Nov, 2013 [facility] [place] [facility] [address] [id number] [place] [address] Nov, 2013 [facility] [place] [facility] [address] [id number] [place] [address] Nov, 2013 [facility] [place] [facility] [address] [id number] [place] [address] 18 Nov, 2013 [facility] [place] [facility] [address] [id number] [place] [address] Sep, [facility] [place] [facility] [address] [id number] [place] [address] Sep, [facility] [place] [facility] [address] [id number] [place] [address] Sep, [facility] [place] [facility] [address] [id number] [place] [address] Sep, [facility] [place] [facility] [address] [id number] [place] [address] Sep, [facility] [place] [facility] [address] [facility] [id number] [place] [address] Sep, [facility] [place] [facility] [address] [facility] [id number] [place] [address] Jul, [facility] [place] [facility] [address] [id number] [place] [address] 11 Jul, 2013 [facility] [place] [facility] [address] [id number] [place] [address] 30 Jun, 2013 [facility] [place] [facility] [address] [id number] [place] [address] 23 Jun, 2013 [facility] [place] [facility] [address] [id number] [place] [address] 17 Jun, 2013 [facility] [place] [facility] [address] [id number] [place] [address] May, [facility] [address] [place] [id number] May, [facility] [address] [id number] [place] [address] May, [facility] [address] [id number] [place] [address] May, [facility] [address] [id number] [place] [address] May, [facility] [address] [id number] [place] [address] May, [facility] [address] [id number] [place] [address] May, [facility] [address] [id number] [place] [address] Apr, [facility] [address] [id number] [place] [address] Apr, [facility] [address] [id number] [place] [address] Apr, [facility] [address] [id number] [place] [address] Apr, [facility] [address] [id number] [place] [address] Mar, [facility] [address] [id number] [place] [address] February, [facility] [address] [id number] [place] [address] Jan, [facility] [address] [id number] [place] [address] Dec, [facility] [place] [facility] [address] [id number] [place] [address] Dec, [facility] [address] [id number] [place] [address] Dec, [facility] [address] [id number] [place] [address] Nov, [facility] [place] [facility] [address] [id number] [place] [address] Nov, [facility] [address] [id number] [place] [address] Nov, [facility] [place] [facility] [address] [id number] [place] [address] Oct, [facility] [address] [id number] [place] [address] Oct, [facility] [address] [id number] [place] [address] Sep, [facility] [address] [id number] [place] [address] Sep, [facility] [place] [facility] [address] [id number] [place] [address] Sep, [facility] [address] [id number] [place] [address] Sep, [facility] [address] [facility] [id number] [place] [address] Sep, [facility] [address] [id number] [place] [address] Sep, [facility] [place] [facility] [address] [id number] [place] [address] Aug, [facility] [place] [facility] [address] [id number] [place] [address] Aug, [facility] [place] [facility] [address] [id number] [place] [address] Aug, [facility] [place] [facility] [address] [id number] [place] [address] Aug, [facility] [place] [facility] [address] [id number] [place] [address] Aug, [facility] [place] [facility] [address] [id number] [place] [address] Aug, [facility] [place] [facility] [address] [id number] [place] [address] Aug, [facility] [place] [facility] [address] [id number] [place] [address] Aug, [facility] [place] [facility] [address] [id number] [place] [address] Aug, [facility] [place] [facility] [address] [id number] [place] [address] Aug, [facility] [place] [facility] [address] [id number] [place] [address] Jul, [facility] [place] [facility] [address] [id number] [place] [address] Jul, [facility] [place] [facility] [address] [id number] [place] [address] Jul, [facility] [place] [facility] [address] [id number] [place] [address] Jul, [facility] [place] [facility] [address] [id number] [place] [address] Jul, [facility] [place] [facility] [address] [id number] [place] [address] Jul, [facility] [place] [facility] [address] [id number] [place] [address] Jul, [facility] [place] [facility] [address] [id number] [place] [address] Jul, [facility] [place] [facility] [address] [id number] [place] [address] Jul, [facility] [place] [facility] [address] [id number] [place] [address] Jul, [facility] [place] [facility] [address] [id number] [place] [address] Jul, [facility] [place] [facility] [address] [id number] [place] [address] Jul, [facility] [place] [facility] [address] [id number] [place] [address] Jul, [facility] [place] [facility] [address] [id number] [place] [address] Jul, [facility] [place] [facility] [address] [id number] [place] [address] Jul, [facility] [place] [facility] [address] [id number] [place] [address] Jun, [facility] [place] [facility] [address] [id number] [place] [address] 24 Jun, 2012 [facility] [place] [facility] [address] [id number] [place] [address] Jun, [facility] [place] [facility] [address] [id number] [place] [address] May, [facility] [place] [facility] [address] [id number] [place] [address] May, [facility] [place] [facility] [address] [id number], [place] [address] Mar, [facility] [place] [facility] [address] [id number], [place] [address] Mar, [facility] [place] [facility] [address] [id number] [place] [address] February, [facility] [place] [facility] [address] [id number] [place] [address] February, [facility] [place] [facility] [address] [id number] [place] [address] Nov, [facility] [place] [facility] [address] [id number] [place] [address] 15 Oct, 2011 [facility] [address] [id number] [place] [address] Oct, [facility] [address] [id number] [place] [address] Oct, [facility] [address] [id number] [place] [address] Aug, [facility] [address] [id number] [place] [address] Jul, [facility] [address] [id number] [place] [address] Sep, [facility] [address] [id number] [place] [address] Aug, [facility] [address] [id number] [place] [address] Jul, [facility] [address] [id number] [place] [address] Apr, [facility] [address] [id number] [place] [address] February, [facility] [address] [facility] [id number] [place] [address] Sep, [facility] [address] [id number] [place] [address] 30 Sep, 2009 [facility] [address] [id number] [place] [address] Sep, [facility] [place] [facility] [address] [id number] [place] [address] 15 Apr, 2009 [facility] [place] [facility] [address] [id number] [place] [address] Mar, [facility] [address] [id number] [place] [address] February, [facility] [address] [facility] [id number] [place] [address] Jan, [facility] [address] [facility] [id number] [place] [address] Jul, IMMUNIZATIONS No Known Immunizations SOCIAL HISTORY Never Assessed REASON FOR VISIT Ranitidine PLAN OF CARE VITAL SIGNS MEDICATIONS Medication Instructions Dosage Frequency Start Date End Date Duration Status Ranitidine HCl 150 MG Orally Once a day 1 capsule at bedtime 24h Aug, 30 day(s) Active Cyclobenzaprine HCl 10 MG Orally 2 times a day 1 tablet as needed 12h Aug, Active Prazosin HCl 1 MG Orally Once a day 1 capsule at bedtime 24h Aug, 30 day(s) Active RESULTS No Results PROCEDURES No Known procedures INSTRUCTIONS MEDICATIONS ADMINISTERED No Known Medications MEDICAL (GENERAL) HISTORY Type Description Date Medical History 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
--- OUTSIDE RECORDS SUMMARY | 2019-05-04 08:51 | XMS REPORT ---
Author Author TRACEE LANGE Organization [facility] Address [address] [place] [address] Care Team Providers Care Ball Holder Name Role Phone TRACEE LANGE Unavailable PROBLEMS Type Condition ICD9-CM Code SGO36-UK Code Onset Dates Condition Status SNOMED Code Problem Intracranial injury, without loss of consciousness, subsequent encounter S06.9X0D Active 946926357 Problem Lumbar neuritis M54.16 Active 949690654 Problem Thoracic neuritis M54.14 Active 51671334 Problem Mood disorder F39 Active 35880059 Problem Ventricular arrhythmia I49.9 Active 94638854 Problem Cardiomyopathy I42.9 Active 08832357 Problem Hypertension, benign I10 Active 20992921 Problem Epileptic seizure, generalized G40.309 Active 47924644 Problem GERD (gastroesophageal reflux disease) K21.9 Active 838931221 ALLERGIES No Known Allergies ENCOUNTERS Encounter Location Date Diagnosis [facility] [id number] [place] [address] Aug, Seizures R56.9 [facility] [id number] [place] [address] Aug, Mood disorder F39 ; Neck pain on left side M54.2 and Hypertension, benign I10 [facility] [id number] [place] [address] Aug, [facility] [id number] [place] [address] Aug, [facility] [id number] [place] [address] Jul, [facility] [id number] [place] [address] Jul, Hypertension, benign I10 [facility] [id number] [place] [address] Jul, [facility] [id number] [place] [address] Jul, Thoracic neuritis M54.14 ; Pain of left leg M79.605 and Pain in right leg M79.604 [facility] [id number] [place] [address] Jun, Seizures R56.9 [facility] [id number] [place] [address] May, [facility] [id number] [place] [address] May, [facility] [id number] [place] [address] May, [facility] [id number] [place] [address] May, Seizures R56.9 [facility] [id number] [place] [address] May, [facility] [id number] [place] [address] May, Delirium R41.0 [facility] [id number] [place] [address] Apr, [facility] [id number] [place] [address] February, Ventricular arrhythmia I49.9 [facility] [id number] [place] [address] February, [facility] [id number] [place] [address] Dec, Thoracic neuritis M54.14 ; Lumbar neuritis M54.16 and Epileptic seizure, generalized G40.309 [facility] [id number] [place] [address] Sep, Epileptic seizure, generalized G40.309 and Lumbar neuritis M54.16 [place] [address] [address] Aug, Thoracic neuritis M54.14 and Lumbar neuritis M54.16 [place] [address] [address] Jun, [place] [address] [address] Jun, Abscess of leg, left L02.416 [place] [address] [address] May, Lumbar neuritis M54.16 ; Thoracic neuritis M54.14 ; Intracranial injury, without loss of consciousness, subsequent encounter S06.9X0D and Cardiomyopathy I42.9 [place] [address] [address] Apr, Lumbar neuritis M54.16 [place] [address] [address] Apr, [place] [address] [address] Apr, Elevated liver enzymes R74.8 and Renal insufficiency N28.9 [place] [address] [address] Apr, Lumbar neuritis M54.16 ; Thoracic neuritis M54.14 ; Hypertension, benign I10 ; Cardiomyopathy I42.9 and Epileptic seizure, generalized G40.309 [place] [address] [address] Mar, [place] [address] [address] February, [place] [address] [address] February, Lumbar neuritis M54.16 ; Thoracic neuritis M54.14 ; Hypertension, benign I10 ; Cardiomyopathy I42.9 and Epileptic seizure, generalized G40.309 [place] [address] [address] Dec, [facility] [address] [address] Sep, Epigastric mass R19.06 [place] [address] [address] Sep, Epigastric mass R19.06 [place] [address] [address] Sep, [place] [address] [address] Sep, Epigastric mass R19.06 [place] [address] [address] Sep, Epigastric mass R19.06 and Lung mass R91.8 [facility] [address] [address] Jul, Shortness of breath R06.02 ; Dysuria R30.0 and Acute bronchitis, unspecified organism J20.9 [place] [address] [address] Jul, [place] [address] [address] 15 Jun, 2016 Seizures R56.9 ; Thoracic neuritis M54.14 ; Lumbar neuritis M54.16 and GERD (gastroesophageal reflux disease) K21.9 [facility] [address] [address] Jan, [place] [address] [address] 10 Sep, 2015 [place] [address] [address] Sep, Intracranial injury, without loss of consciousness, subsequent encounter S06.9X0D ; Cardiomyopathy I42.9 ; GERD (gastroesophageal reflux disease) K21.9 ; Hypertension, benign I10 ; Thoracic neuritis M54.14 and Lumbar neuritis M54.16 [facility] [id number] [place] [address] Mar, [facility] [address] [address] Mar, Coronary atherosclerosis of unspecified type of vessel, elem or graft 414.00 ; Unspecified essential hypertension 401.9 ; Thoracic or lumbosacral neuritis or radiculitis, unspecified 724.4 and Other convulsions 780.39 [facility] [address] [address] Jan, [facility] [address] [address] Jan, [facility] [address] [address] Nov, [facility] [address] [address] Nov, [facility] [address] [address] Nov, [facility] [address] [address] Nov, [facility] [address] [address] Nov, [facility] [address] [address] Nov, [facility] [address] [address] Nov, [facility] [address] [address] Nov, [facility] [place] [facility] [address] [id number] [place] [address] Nov, [facility] [place] [facility] [address] [id number] [place] [address] Nov, [facility] [place] [facility] [address] [id number] [place] [address] Sep, [facility] [place] [facility] [address] [id number] [place] [address] Sep, [facility] [place] [facility] [address] [id number] [place] [address] Aug, [facility] [place] [facility] [address] [id number] [place] [address] Aug, [facility] [place] [facility] [address] [id number] [place] [address] Aug, [facility] [place] [facility] [address] [id number] [place] [address] Aug, [facility] [place] [facility] [address] [id number] [place] [address] Jul, [facility] [place] [facility] [address] [id number] [place] [address] Jul, [facility] [place] [facility] [address] [id number], [place] [address] Jul, [facility] [place] [facility] [address] [id number], [place] [address] Jul, [facility] [place] [facility] [address] [id number] [place] [address] Jun, [facility] [place] [facility] [address] [id number] [place] [address] Jun, [facility] [place] [facility] [address] [id number] [place] [address] Jun, [facility] [place] [facility] [address] [id number] [place] [address] May, [facility] [place] [facility] [address] [id number] [place] [address] May, [facility] [place] [facility] [address] [id number] [place] [address] May, [facility] [place] [facility] [address] [id number] [place] [address] May, [facility] [place] [facility] [address] [id number] [place] [address] May, [facility] [place] [facility] [address] [id number] [place] [address] May, [facility] [place] [facility] [address] [id number] [place] [address] May, [facility] [place] [facility] [address] [id number] [place] [address] May, [facility] [place] [facility] [address] [id number] [place] [address] February, [facility] [place] [facility] [address] [id number] [place] [address] February, [facility] [place] [facility] [address] [id number] [place] [address] Jan, [facility] [place] [facility] [address] [id number] [place] [address] Jan, [facility] [place] [facility] [address] [id number] [place] [address] Jan, [facility] [place] [facility] [address] [id number] [place] [address] Jan, [facility] [place] [facility] [address] [id number] [place] [address] Nov, [facility] [place] [facility] [address] [id number] [place] [address] Nov, [facility] [address] [id number] [place] [address] Nov, [facility] [address] [id number] [place] [address] Nov, [facility] [address] [facility] [id number] [place] [address] Sep, [facility] [address] [id number] [place] [address] Sep, [facility] [address] [id number] [place] [address] Sep, [facility] [address] [id number] [place] [address] Sep, [facility] [address] [id number] [place] [address] Sep, [facility] [address] [id number] [place] [address] Sep, [facility] [address] [id number] [place] [address] Jul, [facility] [address] [facility] [id number], [place] [address] Jul, [facility] [address] [id number], [place] [address] Jun, [facility] [address] [id number], [place] [address] Jun, [facility] [address] [id number], [place] [address] Jun, [facility] [address] [facility] [id number], [place] [address] May, [facility] [address] [place] [id number] May, [facility] [address] [id number], [place] [address] May, [facility] [place] [facility] [address] [id number] [place] [address] May, [facility] [place] [facility] [address] [id number] [place] [address] May, [facility] [place] [facility] [address] [id number] [place] [address] May, [facility] [place] [facility] [address] [id number] [place] [address] May, [facility] [place] [facility] [address] [id number] [place] [address] Apr, [facility] [place] [facility] [address] [id number] [place] [address] Apr, [facility] [place] [facility] [address] [id number] [place] [address] Apr, [facility] [place] [facility] [address] [id number] [place] [address] Apr, [facility] [place] [facility] [address] [id number] [place] [address] Mar, [facility] [place] [facility] [address] [id number] [place] [address] February, [facility] [place] [facility] [address] [id number] [place] [address] Jan, [facility] [place] [facility] [address] [id number] [place] [address] Dec, [facility] [place] [facility] [address] [id number] [place] [address] Dec, [facility] [place] [facility] [address] [id number] [place] [address] Dec, [facility] [place] [facility] [address] [id number] [place] [address] Nov, [facility] [place] [facility] [address] [id number] [place] [address] Nov, [facility] [address] [id number] [place] [address] Nov, [facility] [place] [facility] [address] [id number] [place] [address] Oct, [facility] [place] [facility] [address] [id number] [place] [address] Oct, [facility] [place] [facility] [address] [id number] [place] [address] Sep, [facility] [place] [facility] [address] [id number] [place] [address] Sep, [facility] [place] [facility] [address] [id number] [place] [address] Sep, [facility] [place] [facility] [address] [id number] [place] [address] Sep, [facility] [place] [facility] [address] [id number] [place] [address] Sep, [facility] [place] [facility] [address] [id number] [place] [address] Sep, [facility] [place] [facility] [address] [id number] [place] [address] Aug, [facility] [place] [facility] [address] [id number] [place] [address] Aug, [facility] [place] [facility] [address] [id number] [place] [address] Aug, [facility] [place] [facility] [address] [id number] [place] [address] Aug, [facility] [place] [facility] [address] [id number] [place] [address] Aug, [facility] [place] [facility] [address] [id number] [place] [address] Aug, [facility] [place] [facility] [address] [id number] [place] [address] Aug, [facility] [place] [facility] [address] [id number] [place] [address] Aug, [facility] [place] [facility] [address] [id number] [place] [address] Aug, [facility] [place] [facility] [address] [id number] [place] [address] Aug, [facility] [place] [facility] [address] [id number] [place] [address] Jul, [facility] [place] [facility] [address] [id number] [place] [address] Jul, [facility] [place] [facility] [address] [id number] [place] [address] Jul, [facility] [place] [facility] [address] [id number], [place] [address] Jul, [facility] [place] [facility] [address] [id number] [place] [address] Jul, [facility] [place] [facility] [address] [id number], [place] [address] Jul, [facility] [place] [facility] [address] [id number], [place] [address] Jul, [facility] [place] [facility] [address] [id number], [place] [address] Jul, [facility] [place] [facility] [address] [id number] [place] [address] 18 Jul, 2012 [facility] [place] [facility] [address] [id number], [place] [address] Jul, [facility] [place] [facility] [address] [id number], [place] [address] Jul, [facility] [place] [facility] [address] [id number] [place] [address] 17 Jul, 2012 [facility] [place] [facility] [address] [id number] [place] [address] 17 Jul, 2012 [facility] [place] [facility] [address] [id number] [place] [address] Jul, [facility] [place] [facility] [address] [id number] [place] [address] Jul, [facility] [place] [facility] [address] [id number] [place] [address] 28 Jun, 2012 [facility] [place] [facility] [address] [id number] [place] [address] 24 Jun, 2012 [facility] [place] [facility] [address] [id number] [place] [address] Jun, [facility] [place] [facility] [address] [id number] [place] [address] May, [facility] [place] [facility] [address] [id number] [place] [address] May, [facility] [place] [facility] [address] [id number] [place] [address] Mar, [facility] [place] [facility] [address] [id number] [place] [address] Mar, [facility] [place] [facility] [address] [id number] [place] [address] February, [facility] [place] [facility] [address] [id number] [place] [address] February, [facility] [place] [facility] [address] [id number] [place] [address] Nov, [facility] [place] [facility] [address] [id number] [place] [address] Oct, [facility] [place] [facility] [address] [id number] [place] [address] Oct, [facility] [place] [facility] [address] [id number] [place] [address] Oct, [facility] [address] [id number] [place] [address] Aug, [facility] [address] [id number] [place] [address] Jul, [facility] [address] [id number] [place] [address] Sep, [facility] [address] [id number] [place] [address] Aug, [facility] [address] [id number] [place] [address] Jul, [facility] [address] [id number] [place] [address] Apr, [facility] [address] [id number] [place] [address] February, [facility] [address] [id number] [place] [address] Sep, [facility] [address] [id number] [place] [address] Sep, [facility] [address] [id number] [place] [address] Sep, [facility] [address] [id number], [place] [address] 15 Apr, 2009 [facility] [address] [id number] [place] [address] Mar, [facility] [place] [facility] [address] [id number] [place] [address] February, [facility] [place] [facility] [address] [id number] [place] [address] 15 Jan, 2009 [facility] [place] [facility] [address] [id number] [place] [address] Jul, IMMUNIZATIONS No Known Immunizations SOCIAL HISTORY Never Assessed REASON FOR VISIT Pain management (chronic)-AMEENA craig, pt states is having night brizuela from one of her meds she is on PLAN OF CARE Activity Details Pending Test LIPID PANEL Future/Pending Procedure ROUTINE VENIPUNCTURE VITAL SIGNS Height 63 in 2018-09-04 Weight 197.5 lbs 2018-09-04 Temperature 97.7 degrees Fahrenheit 2018-09-04 Heart Rate 93 bpm 2018-09-04 Respiratory Rate 20 2018-09-04 Oximetry on room air:95 % 2018-09-04 BMI 34.98 kg/m2 2018-09-04 Blood pressure systolic 130 mmHg 2018-09-04 Blood pressure diastolic 102 mmHg 2018-09-04 MEDICATIONS Medication Instructions Dosage Frequency Start Date End Date Duration Status HydrOXYzine HCl 25 MG TAKE ONE TABLET BY MOUTH EVERY 8 HOURS NEEDED Active Cyclobenzaprine HCl 10 MG Orally 2 times a day 1 tablet as needed 12h Aug, Active Metoprolol Succinate 100 MG Orally Once a day 1 capsule 24h Jul, 30 day(s) Active Lorazepam 0.5 MG Active Losartan Potassium 100 mg Orally Once a day 1 tablet 24h Active Acid Contingents Supervisor Unknown Prazosin HCl 1 MG Orally Once a day 1 capsule at bedtime 24h Aug, 30 day(s) Active Clonidine HCl 0.2 MG Orally Twice a day 1 tablet 12h Active HydrALAZINE HCl 50 mg Orally 3 times a day 1 tablet 8h Active Phenobarbital 97.2 mg Orally Once a day 1 tablet 24h February, 28 days Active Spironolactone 25 MG Orally Once a day 1 tablet 24h Active Oxcarbazepine 600 MG Orally Twice a day 1 tablet 12h Active RESULTS No Results PROCEDURES Procedure Date Ordered Result Body Site LAB [facility] Sep 04, 2018 VENIPUNCT, ROUTINE* Sep 04, 2018 INSTRUCTIONS MEDICATIONS ADMINISTERED No Known Medications MEDICAL (GENERAL) HISTORY Type Description Date Medical History 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
--- OUTSIDE RECORDS SUMMARY | 2019-05-04 08:51 | XMS REPORT ---
Author Author TRACEE LANGE Organization [facility] Address [address] [place] [address] Care Team Providers Care Airplane Inspector Name Role Phone TRACEE LANGE Unavailable PROBLEMS Type Condition ICD9-CM Code DCG75-HO Code Onset Dates Condition Status SNOMED Code Problem Thoracic neuritis M54.14 Active 46322063 Problem Intracranial injury, without loss of consciousness, subsequent encounter S06.9X0D Active 643082545 Problem Ventricular arrhythmia I49.9 Active 74011741 Problem Epileptic seizure, generalized G40.309 Active 60478805 Problem Hypertension, benign I10 Active 53971821 Problem Lumbar neuritis M54.16 Active 334967772 Problem GERD (gastroesophageal reflux disease) K21.9 Active 925033523 Problem Cardiomyopathy I42.9 Active 55424482 ALLERGIES No Information ENCOUNTERS Encounter Location Date Diagnosis [facility] [id number] [place] [address] Aug, [facility] [id number] [place] [address] Aug, [facility] [id number] [place] [address] Aug, [facility] [id number] [place] [address] Jul, [facility] [id number] [place] [address] Jul, Hypertension, benign I10 [facility] [id number] [place] [address] Jul, [facility] [id number] [place] [address] Jul, Thoracic neuritis M54.14 ; Pain of left leg M79.605 and Pain in right leg M79.604 [facility] [id number] [place] [address] Jun, Seizures R56.9 [facility] [id number] [place] [address] May, [facility] [id number] [place] [address] May, [facility] [id number] [place] [address] May, [facility] [id number] [place] [address] May, Seizures R56.9 [facility] [id number] [place] [address] May, [facility] [id number] [place] [address] May, Delirium R41.0 [facility] [id number] [place] [address] Apr, [facility] [id number] [place] [address] February, Ventricular arrhythmia I49.9 [facility] [id number] [place] [address] February, [facility] [id number] [place] [address] Dec, Thoracic neuritis M54.14 ; Lumbar neuritis M54.16 and Epileptic seizure, generalized G40.309 [facility] [id number] [place] [address] Sep, Epileptic seizure, generalized G40.309 and Lumbar neuritis M54.16 [facility] [id number] [place] [address] Aug, Thoracic neuritis M54.14 and Lumbar neuritis M54.16 [facility] [id number] [place] [address] Jun, [place] [address] [address] Jun, Abscess of leg, left L02.416 [place] [address] [address] May, Lumbar neuritis M54.16 ; Thoracic neuritis M54.14 ; Intracranial injury, without loss of consciousness, subsequent encounter S06.9X0D and Cardiomyopathy I42.9 [place] [address] [address] Apr, Lumbar neuritis M54.16 [address] [address] [address] Apr, [place] [address] [address] Apr, Elevated liver enzymes R74.8 and Renal insufficiency N28.9 [place] [id number] [place] [address] Apr, Lumbar neuritis M54.16 ; Thoracic neuritis M54.14 ; Hypertension, benign I10 ; Cardiomyopathy I42.9 and Epileptic seizure, generalized G40.309 [place] [facility] [id number] [place] [address] Mar, [place] [id number] [place] [address] February, [place] [id number] [place] [address] February, Lumbar neuritis M54.16 ; Thoracic neuritis M54.14 ; Hypertension, benign I10 ; Cardiomyopathy I42.9 and Epileptic seizure, generalized G40.309 [place] [id number] [place] [address] Dec, [place] [id number] [place] [address] Sep, Epigastric mass R19.06 [facility] [id number] [place] [address] Sep, Epigastric mass R19.06 [facility] [id number] [place] [address] Sep, [facility] [id number] [place] [address] Sep, Epigastric mass R19.06 [place] [id number] [place] [address] Sep, Epigastric mass R19.06 and Lung mass R91.8 [facility] [id number] [place] [address] Jul, Shortness of breath R06.02 ; Dysuria R30.0 and Acute bronchitis, unspecified organism J20.9 [place] [id number] [place] [address] Jul, [place] [id number] [place] [address] Jun, Seizures R56.9 ; Thoracic neuritis M54.14 ; Lumbar neuritis M54.16 and GERD (gastroesophageal reflux disease) K21.9 [facility] [id number] [place] [address] Jan, [place] [id number] [place] [address] Sep, [place] [id number] [place] [address] Sep, Intracranial injury, without loss of consciousness, subsequent encounter S06.9X0D ; Cardiomyopathy I42.9 ; GERD (gastroesophageal reflux disease) K21.9 ; Hypertension, benign I10 ; Thoracic neuritis M54.14 and Lumbar neuritis M54.16 [facility] [address], [place] [address] Mar, [facility] [id number] [place] [address] Mar, Coronary atherosclerosis of unspecified type of vessel, [place] or graft 414.00 ; Unspecified essential hypertension 401.9 ; Thoracic or lumbosacral neuritis or radiculitis, unspecified 724.4 and Other convulsions 780.39 [facility] [id number] [address] Jan, [facility] [id number] [place] [address] Jan, [facility] [id number] [place] [address] Nov, [facility] [id number] [place] [address] Nov, [facility] [id number] [place] [address] Nov, [facility] [id number] [place] [address] Nov, [facility] [address] [address] Nov, [facility] [id number] [place] [address] Nov, [facility] [address] [address] Nov, [facility] [id number] [place] [address] Nov, [facility] [address] [address] Nov, [facility] [id number] [place] [address] Nov, [facility] [place] [facility] [address] [id number] [place] [address] Sep, [facility] [place] [facility] [address] [id number] [place] [address] Sep, [facility] [place] [facility] [address] [facility] [facility] [id number] [place] [address] Aug, [facility] [place] [facility] [address] [id number] [place] [address] Aug, [facility] [place] [facility] [address] [id number] [place] [address] Aug, [facility] [place] [facility] [address] [id number] [place] [address] Aug, [facility] [place] [facility] [address] [id number] [place] [address] Jul, [facility] [place] [facility] [address] [id number] [place] [address] Jul, [facility] [place] [facility] [address] [id number] [place] [address] Jul, [facility] [place] [facility] [address] [id number] [place] [address] Jul, [facility] [place] [facility] [address] [id number], [place] [address] Jun, [facility] [place] [facility] [address] [id number], [place] [address] Jun, [facility] [place] [facility] [address] [id number] [place] [address] Jun, [facility] [place] [facility] [address] [facility] [facility] [id number] [place] [address] May, [facility] [place] [facility] [address] [id number] [place] [address] May, [facility] [place] [facility] [address] [id number] [place] [address] May, [facility] [place] [facility] [address] [id number] [place] [address] May, [facility] [place] [facility] [address] [id number] [place] [address] May, [facility] [place] [facility] [address] [id number] [place] [address] May, [facility] [place] [facility] [address] [id number] [place] [address] May, [facility] [place] [facility] [address] [id number] [place] [address] May, [facility] [place] [facility] [address] [id number] [place] [address] February, [facility] [place] [facility] [address] [id number] [place] [address] February, [facility] [place] [facility] [address] [id number] [place] [address] Jan, [facility] [place] [facility] [address] [id number] [place] [address] Jan, [facility] [place] [facility] [address] [facility] [id number] [place] [address] Jan, [facility] [place] [facility] [address] [id number] [place] [address] Jan, [facility] [place] [facility] [address] [id number] [place] [address] Nov, [facility] [place] [facility] [address] [id number] [place] [address] Nov, [facility] [place] [facility] [address] [id number] [place] [address] Nov, [facility] [place] [facility] [address] [id number] [place] [address] Nov, [facility] [address] [id number] [place] [address] Sep, [facility] [address] [id number] [place] [address] Sep, [facility] [address] [id number] [place] [address] Sep, [facility] [address] [id number] [place] [address] Sep, [facility] [address] [id number] [place] [address] Sep, [facility] [address] [id number] [place] [address] Sep, [facility] [address] [id number] [place] [address] Jul, [facility] [address] [id number] [place] [address] Jul, [facility] [address] [id number] [place] [address] Jun, [facility] [address] [id number] [place] [address] Jun, [facility] [address] [id number] [place] [address] Jun, [facility] [address] [id number] [place] [address] May, [facility] [address] [place] [id number] May, [facility] [address] [id number] [place] [address] May, [facility] [address] [id number] [place] [address] May, [facility] [address] [id number] [place] [address] May, [facility] [place] [facility] [address] [id number] [place] [address] May, [facility] [place] [facility] [address] [id number] [place] [address] May, [facility] [place] [facility] [address] [id number] [place] [address] Apr, [facility] [place] [facility] [address] [id number] [place] [address] Apr, [facility] [place] [facility] [address] [id number] [place] [address] Apr, [facility] [place] [facility] [address] [id number] [place] [address] Apr, [facility] [place] [facility] [address] [id number] [place] [address] Mar, [facility] [place] [facility] [address] [id number] [place] [address] February, [facility] [place] [facility] [address] [id number] [place] [address] Jan, [facility] [place] [facility] [address] [id number] [place] [address] Dec, [facility] [place] [facility] [address] [id number] [place] [address] Dec, [facility] [place] [facility] [address] [id number] [place] [address] Dec, [facility] [place] [facility] [address] [id number] [place] [address] Nov, [facility] [place] [facility] [address] [id number] [place] [address] Nov, [facility] [place] [facility] [address] [id number] [place] [address] Nov, [facility] [place] [facility] [address] [id number] [place] [address] Oct, [facility] [address] [id number] [place] [address] Oct, [facility] [place] [facility] [address] [id number] [place] [address] Sep, [facility] [address] [id number] [place] [address] Sep, [facility] [address] [id number] [place] [address] Sep, [facility] [address] [id number] [place] [address] Sep, [facility] [address] [id number] [place] [address] Sep, [facility] [address] [id number] [place] [address] Sep, [facility] [address] [id number] [place] [address] Aug, [facility] [address] [id number] [place] [address] Aug, [facility] [address] [id number] [place] [address] Aug, [facility] [place] [facility] [address] [id number] [place] [address] Aug, [facility] [address] [id number] [place] [address] Aug, [facility] [place] [facility] [address] [id number] [place] [address] Aug, [facility] [place] [facility] [address] [id number] [place] [address] Aug, [facility] [place] [facility] [address] [id number] [place] [address] Aug, [facility] [place] [facility] [address] [id number] [place] [address] Aug, [facility] [place] [facility] [address] [id number] [place] [address] Aug, [facility] [place] [facility] [address] [id number] [place] [address] Jul, [facility] [place] [facility] [address] [id number] [place] [address] Jul, [facility] [place] [facility] [address] [id number] [place] [address] Jul, [facility] [place] [facility] [address] [id number] [place] [address] Jul, [facility] [place] [facility] [address] [id number] [place] [address] Jul, [facility] [place] [facility] [address] [id number], [place] [address] Jul, [facility] [place] [facility] [address] [id number] [place] [address] Jul, [facility] [place] [facility] [address] [facility] [id number], [place] [address] Jul, [facility] [place] [facility] [address] [id number], [place] [address] Jul, [facility] [place] [facility] [address] [id number], [place] [address] Jul, [facility] [place] [facility] [address] [id number], [place] [address] Jul, [facility] [place] [facility] [address] [id number], [place] [address] Jul, [facility] [place] [facility] [address] [facility] [id number], [place] [address] Jul, [facility] [place] [facility] [address] [id number], [place] [address] Jul, [facility] [address] [id number] [place] [address] Jul, [facility] [place] [facility] [address] [id number] [place] [address] Jun, [facility] [place] [facility] [address] [facility] [facility] [id number] [place] [address] 24 Jun, 2012 [facility] [place] [facility] [address] [id number] [place] [address] Jun, [facility] [address] [id number] [place] [address] May, [facility] [place] [facility] [address] [id number] [place] [address] May, [facility] [id number] [place] [address] Mar, [facility] [place] [facility] [address] [id number] [place] [address] Mar, [facility] [id number] [place] [address] February, [facility] [place] [facility] [id number] [place] [address] February, [facility] [address] [id number] [place] [address] Nov, [facility] [place] [facility] [address] [id number], [place] [address] Oct, [facility] [place] [facility] [address] [id number] [place] [address] Oct, [facility] [place] [facility] [address] [facility] [id number], [place] [address] Oct, [facility] [place] [facility] [id number] [address] Aug, [facility] [place] [facility] [address] [facility] [id number], [place] [address] Jul, [facility] [address] [id number], [place] [address] Sep, [facility] [address] [facility] [id number], [place] [address] Aug, [facility] [address] [id number], [place] [address] Jul, [facility] [address] [facility] [id number], [place] [address] Apr, [facility] [id number] [address] February, [facility] [id number] [place] [address] Sep, [facility] [id number], [place] [address] Sep, [facility] [id number], [place] [address] Sep, [facility] [id number] [place] [address] Apr, [facility] [id number] [address] Mar, [facility] [id number], [place] [address] February, [facility] [id number] [address] Jan, [facility] [address] [id number] [address] Jul, IMMUNIZATIONS No Known Immunizations SOCIAL HISTORY Never Assessed REASON FOR VISIT Refill request PLAN OF CARE VITAL SIGNS MEDICATIONS Unknown Medications RESULTS No Results PROCEDURES No Known procedures INSTRUCTIONS MEDICATIONS ADMINISTERED No Known Medications MEDICAL (GENERAL) HISTORY Type Description Date Medical History Post-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/2013-ejection fraction 30 % Medical History Chronic Obstructive pulmonary disease Medical History Hernia-repaired Medical History Hyperactive bladder Medical History [id number] 03/2011-6.1 % Medical History Epilepsy and recurrent [...] Hospitalization History Defibulator placement 02/2018 Hospitalization History [facility] - UTI 04/2018-05/2018
--- OUTSIDE RECORDS SUMMARY | 2019-05-04 08:51 | XMS REPORT ---
Author Author TRACEE LANGE Organization [facility] Address [address] [place] [address] Care Team Providers Care Registrar Assistant Name Role Phone TRACEE LANGE Unavailable PROBLEMS Type Condition ICD9-CM Code PLK85-ED Code Onset Dates Condition Status SNOMED Code Problem Intracranial injury, without loss of consciousness, subsequent encounter S06.9X0D Active 891575232 Problem Lumbar neuritis M54.16 Active 192638696 Problem Thoracic neuritis M54.14 Active 06357189 Problem Mood disorder F39 Active 40251491 Problem Ventricular arrhythmia I49.9 Active 66787276 Problem Cardiomyopathy I42.9 Active 23570137 Problem Hypertension, benign I10 Active 76659940 Problem Epileptic seizure, generalized G40.309 Active 67772066 Problem GERD (gastroesophageal reflux disease) K21.9 Active 504248111 ALLERGIES No Information ENCOUNTERS Encounter Location Date Diagnosis [facility] [id number] [place] [address] Aug, Seizures R56.9 [facility] [id number] [place] [address] Aug, Mood disorder F39 ; Neck pain on left side M54.2 and Hypertension, benign I10 [facility] [id number] [place] [address] Aug, [facility] [id number] [place] [address] Aug, [facility] [id number] [place] [address] Jul, [facility] [id number] [place] [address] Jul, Hypertension, benign I10 [facility] [address] [place] [address] Jul, [facility] [id number] [place] [address] Jul, Thoracic neuritis M54.14 ; Pain of left leg M79.605 and Pain in right leg M79.604 [facility] [id number] [place] [address] Jun, Seizures R56.9 [facility] [id number] [place] [address] May, [facility] [id number] [place] [address] May, [facility] [id number] [place] [address] May, [facility] [id number] [place] [address] May, Seizures R56.9 [facility] [id number] [place] [address] May, [facility] [id number] [place] [address] May, Delirium R41.0 [facility] [id number] [place] [address] Apr, [facility] [id number] [place] [address] February, Ventricular arrhythmia I49.9 [facility] [id number] [place] [address] February, [facility] [id number] [place] [address] Dec, Thoracic neuritis M54.14 ; Lumbar neuritis M54.16 and Epileptic seizure, generalized G40.309 [facility] [id number] [place] [address] Sep, Epileptic seizure, generalized G40.309 and Lumbar neuritis M54.16 [place] [address] [address] Aug, Thoracic neuritis M54.14 and Lumbar neuritis M54.16 [place] [address] [address] Jun, [place] [address] [address] Jun, Abscess of leg, left L02.416 [place] [address] [address] May, Lumbar neuritis M54.16 ; Thoracic neuritis M54.14 ; Intracranial injury, without loss of consciousness, subsequent encounter S06.9X0D and Cardiomyopathy I42.9 [place] [address] [address] Apr, Lumbar neuritis M54.16 [place] [address] [address] Apr, [place] [address] [address] Apr, Elevated liver enzymes R74.8 and Renal insufficiency N28.9 [place] [address] [address] Apr, Lumbar neuritis M54.16 ; Thoracic neuritis M54.14 ; Hypertension, benign I10 ; Cardiomyopathy I42.9 and Epileptic seizure, generalized G40.309 [place] [address] [address] Mar, [place] [address] [address] February, [place] [address] [address] February, Lumbar neuritis M54.16 ; Thoracic neuritis M54.14 ; Hypertension, benign I10 ; Cardiomyopathy I42.9 and Epileptic seizure, generalized G40.309 [place] [address] [address] Dec, [facility] [address] [address] Sep, Epigastric mass R19.06 [place] [address] [address] Sep, Epigastric mass R19.06 [place] [address] [address] Sep, [place] [address] [address] Sep, Epigastric mass R19.06 [place] [address] [address] Sep, Epigastric mass R19.06 and Lung mass R91.8 [facility] [address] [address] Jul, Shortness of breath R06.02 ; Dysuria R30.0 and Acute bronchitis, unspecified organism J20.9 [place] [address] [address] Jul, [place] [address] [address] 15 Jun, 2016 Seizures R56.9 ; Thoracic neuritis M54.14 ; Lumbar neuritis M54.16 and GERD (gastroesophageal reflux disease) K21.9 [facility] [address] [address] Jan, [place] [address] [address] 10 Sep, 2015 [place] [address] [address] Sep, Intracranial injury, without loss of consciousness, subsequent encounter S06.9X0D ; Cardiomyopathy I42.9 ; GERD (gastroesophageal reflux disease) K21.9 ; Hypertension, benign I10 ; Thoracic neuritis M54.14 and Lumbar neuritis M54.16 [facility] [id number] [place] [address] Mar, [facility] [address] [address] Mar, Coronary atherosclerosis of unspecified type of vessel, [place] or graft 414.00 ; Unspecified essential hypertension 401.9 ; Thoracic or lumbosacral neuritis or radiculitis, unspecified 724.4 and Other convulsions 780.39 [facility] [address] [address] Jan, [facility] [address] [address] Jan, [facility] [address] [address] Nov, [facility] [address] [address] Nov, [facility] [id number] [place] [address] Nov, [facility] [address] [address] Nov, [facility] [id number] [place] [address] Nov, [facility] [address] [address] Nov, [facility] [id number] [place] [address] Nov, [facility] [address] [address] Nov, [facility] [place] [facility] [address] [id number] [place] [address] Nov, [facility] [place] [facility] [address] [id number] [place] [address] Nov, [facility] [place] [facility] [address] [facility] [id number] [place] [address] Sep, [facility] [place] [facility] [address] [id number] [place] [address] Sep, [facility] [place] [facility] [address] [id number] [place] [address] Aug, [facility] [place] [facility] [address] [facility] [id number] [place] [address] Aug, [facility] [place] [facility] [address] [facility] [id number] [place] [address] Aug, [facility] [place] [facility] [address] [id number] [place] [address] Aug, [facility] [place] [facility] [address] [id number] [place] [address] Jul, [facility] [place] [facility] [address] [facility] [id number] [place] [address] Jul, [facility] [place] [facility] [address] [facility] [id number] [address] Jul, [facility] [place] [facility] [address] [id number] [address] Jul, [facility] [place] [facility] [address] [id number] [place] [address] Jun, [facility] [place] [facility] [address] [facility] [id number] [place] [address] Jun, [facility] [place] [facility] [address] [facility] [id number] [place] [address] Jun, [facility] [place] [facility] [address] [id number] [place] [address] May, [facility] [address] [id number] [place] [address] May, [facility] [place] [facility] [address] [id number] [place] [address] May, [facility] [place] [facility] [address] [id number] [place] [address] May, [facility] [place] [facility] [address] [id number] [place] [address] May, [facility] [place] [facility] [address] [id number] [place] [address] May, [facility] [place] [facility] [address] [id number] [place] [address] May, [facility] [place] [facility] [address] [id number] [place] [address] May, [facility] [place] [facility] [address] [id number] [place] [address] February, [facility] [place] [facility] [address] [id number] [place] [address] February, [facility] [place] [facility] [address] [id number] [place] [address] Jan, [facility] [place] [facility] [address] [id number] [place] [address] Jan, [facility] [place] [facility] [address] [id number] [place] [address] Jan, [facility] [place] [facility] [address] [id number] [place] [address] Jan, [facility] [place] [facility] [address] [id number] [place] [address] Nov, [facility] [place] [facility] [address] [id number] [place] [address] Nov, [facility] [address] [id number] [place] [address] Nov, [facility] [address] [id number] [place] [address] Nov, [facility] [address] [facility] [id number] [place] [address] Sep, [facility] [address] [id number] [place] [address] Sep, [facility] [address] [id number] [place] [address] Sep, [facility] [address] [id number] [place] [address] Sep, [facility] [address] [facility] [id number] [place] [address] Sep, [facility] [address] [id number] [place] [address] Sep, [facility] [address] [id number] [place] [address] Jul, [facility] [address] [facility] [id number] [address] Jul, [facility] [address] [id number] [address] Jun, [facility] [address] [id number] [address] Jun, [facility] [address] [id number] [place] [address] Jun, [facility] [address] [facility] [id number] [address] May, [facility] [address] [place] [id number] May, [facility] [address] [id number] [place] [address] May, [facility] [address] [id number] [place] [address] May, [facility] [place] [facility] [address] [id number] [place] [address] May, [facility] [place] [facility] [address] [id number] [place] [address] May, [facility] [place] [facility] [address] [id number] [place] [address] May, [facility] [place] [facility] [address] [id number] [place] [address] Apr, [facility] [place] [facility] [address] [id number] [place] [address] Apr, [facility] [place] [facility] [address] [id number] [place] [address] Apr, [facility] [place] [facility] [address] [id number] [place] [address] Apr, [facility] [place] [facility] [address] [id number] [place] [address] Mar, [facility] [place] [facility] [address] [id number] [place] [address] February, [facility] [place] [facility] [address] [id number] [place] [address] Jan, [facility] [place] [facility] [address] [id number] [place] [address] Dec, [facility] [place] [facility] [address] [id number] [place] [address] Dec, [facility] [place] [facility] [address] [id number] [place] [address] Dec, [facility] [place] [facility] [address] [id number] [place] [address] Nov, [facility] [place] [facility] [address] [id number] [place] [address] Nov, [facility] [address] [id number] [place] [address] Nov, [facility] [place] [facility] [address] [id number] [place] [address] Oct, [facility] [address] [id number] [place] [address] Oct, [facility] [place] [facility] [address] [id number] [place] [address] Sep, [facility] [address] [id number] [place] [address] Sep, [facility] [address] [id number] [place] [address] Sep, [facility] [address] [id number] [place] [address] Sep, [facility] [address] [id number] [place] [address] Sep, [facility] [address] [id number] [place] [address] Sep, [facility] [address] [id number] [place] [address] Aug, [facility] [place] [facility] [address] [id number] [place] [address] Aug, [facility] [place] [facility] [address] [id number] [place] [address] Aug, [facility] [place] [facility] [address] [id number] [place] [address] Aug, [facility] [place] [facility] [address] [id number] [place] [address] Aug, [facility] [place] [facility] [address] [id number] [place] [address] Aug, [facility] [place] [facility] [address] [id number] [place] [address] Aug, [facility] [place] [facility] [address] [id number] [place] [address] Aug, [facility] [place] [facility] [address] [id number] [place] [address] Aug, [facility] [place] [facility] [address] [id number] [place] [address] Aug, [facility] [place] [facility] [address] [id number] [place] [address] Jul, [facility] [place] [facility] [address] [id number] [place] [address] Jul, [facility] [place] [facility] [address] [id number] [place] [address] Jul, [facility] [place] [facility] [address] [id number] [address] Jul, [facility] [place] [facility] [address] [id number] [place] [address] Jul, [facility] [place] [facility] [address] [id number] [address] Jul, [facility] [place] [facility] [address] [id number] [address] Jul, [facility] [place] [facility] [address] [id number] [place] [address] Jul, [facility] [place] [facility] [address] [id number] [place] [address] 18 Jul, 2012 [facility] [place] [facility] [address] [id number] [place] [address] Jul, [facility] [place] [facility] [address] [id number] [place] [address] Jul, [facility] [place] [facility] [address] [id number] [place] [address] 17 Jul, 2012 [facility] [place] [facility] [address] [id number] [place] [address] 17 Jul, 2012 [facility] [place] [facility] [address] [id number] [place] [address] Jul, [facility] [place] [facility] [address] [id number] [place] [address] Jul, [facility] [place] [facility] [address] [id number] [place] [address] 28 Jun, 2012 [facility] [place] [facility] [address] [id number] [place] [address] 24 Jun, 2012 [facility] [place] [facility] [address] [id number] [place] [address] Jun, [facility] [place] [facility] [address] [id number] [place] [address] May, [facility] [place] [facility] [address] [id number] [place] [address] May, [facility] [place] [facility] [address] [id number] [place] [address] Mar, [facility] [place] [facility] [address] [id number] [place] [address] Mar, [facility] [place] [facility] [address] [id number] [place] [address] February, [facility] [place] [facility] [address] [id number] [place] [address] February, [facility] [place] [facility] [address] [id number] [place] [address] Nov, [facility] [place] [facility] [address] [id number] [place] [address] Oct, [facility] [place] [facility] [address] [id number] [place] [address] Oct, [facility] [place] [facility] [address] [id number] [place] [address] Oct, [facility] [address] [id number] [place] [address] Aug, [facility] [place] [facility] [address] [id number] [place] [address] Jul, [facility] [address] [id number] [place] [address] Sep, [facility] [address] [id number] [place] [address] Aug, [facility] [place] [facility] [address] [id number] [place] [address] Jul, [facility] [address] [id number] [place] [address] Apr, [facility] [address] [id number] [place] [address] February, [facility] [address] [id number] [place] [address] Sep, [facility] [place] [facility] [address] [id number] [place] [address] Sep, [facility] [place] [facility] [address] [id number] [place] [address] Sep, [facility] [place] [facility] [address] [id number] [place] [address] 15 Apr, 2009 [facility] [place] [facility] [address] [id number] [place] [address] Mar, [facility] [place] [facility] [address] [id number] [place] [address] February, [facility] [place] [facility] [address] [id number] [place] [address] 15 Jan, 2009 [facility] [place] [facility] [address] [id number] [address] Jul, IMMUNIZATIONS No Known Immunizations SOCIAL HISTORY Never Assessed REASON FOR VISIT Controlled Med Refill PLAN OF CARE VITAL SIGNS MEDICATIONS Medication [...] Hernia-repaired Medical History Hyperactive bladder Medical History [id number] 03/2011-6.1 % Medical History Epilepsy and recurrent [...] Hospitalization History Defibulator placement 02/2018 Hospitalization History [facility] - UTI 04/2018-05/2018
[2019-05-04] MEDS ORDERED: NITROGLYCERIN 0.4 MG SL TABS BTL 25'S SL ONE (08:54)
[2019-05-04] MEDS ORDERED: ASPIRIN 81 MG CHEW (CHILDREN'S ASA) ONE (08:55)
[2019-05-04] MEDS ORDERED: ASPIRIN 81 MG CHEW (CHILDREN'S ASA) PO ONE (09:00)
[2019-05-04] MEDS: NITROGLYCERIN 0.4 MG SL TABS BTL 25'S SL PRN ×3 (09:05→09:26)
[2019-05-04 09:06] LABS: BASOPHILS % (AUTO) 1 % (0-10); EOSINOPHILS # (AUTO) 0.1 10^3/uL (0.0-0.3); EOSINOPHILS % (AUTO) 1 % (0-10); HEMATOCRIT 38 % (35-52); HEMOGLOBIN 12.2 G/DL (11.5-16.0); LYMPHOCYTES # (AUTO) 2.3 X 10^3 (1.0-4.0); LYMPHOCYTES % (AUTO) 43 % (12-44); MEAN CORPUSCULAR HEMOGLOBIN 28 PG (25-34); MEAN CORPUSCULAR HGB CONC 32 G/DL (32-36); MEAN CORPUSCULAR VOLUME 87 FL (80-99); MEAN PLATELET VOLUME 9.7 FL (7.4-10.4); MONOCYTES # (AUTO) 0.8 X 10^3 (0.0-1.0); MONOCYTES % (AUTO) 16 % (0-12); NEUTROPHILS % (AUTO) 39 % (42-75); PLATELET COUNT 358 10^3/uL (130-400); RED CELL DISTRIBUTION WIDTH 15.9 % (10.0-14.5); WHITE BLOOD COUNT 5.2 10^3/uL (4.3-11.0)
--- OUTSIDE RECORDS SUMMARY | 2019-05-04 09:14 | XMS REPORT | Continuity of Care Document ---
Demographics Preferred Language Unknown Marital Status Unknown Adventism Affiliation Unknown Race Unknown Ethnic Group Unknown Author Organization Unknown Address Unknown Allergies Active Description Code Type Severity Reaction Onset Reported/Identified Relationship to Patient Clinical Status Yes nitrous oxide [id number] Drug Allergy Unknown N/A 06/08/2007 Yes AILEEN Inhibitors [id number] Drug Allergy Unknown N/A 05/25/2014 Medications There [...] And Abscess Of Unspecified Sites 01/25/[address] APRN 682.9 Cellulitis And Abscess Of Unspecified [...] 466.0 Bronchitis, Acute 02/21/2009 TRACEE LANGE APRN T 466.0 Bronchitis, Acute 02/21/2009 TRACEE LANGE APRN [...] MIKAYLA LANGE GAVI K 536.8 DYSPEPSIA 03/23/2009 DEGROOT DO, GAVI K 787.02 Nausea 03/23/2009 DEGROOT DO, GAVI K 789.01 Abdominal Pain In The Right Upper Belly (ruq) 03/23/2009 DEGROOT DO, GAVI K 536.8 DYSPEPSIA 03/23/2009 DEGROOT DO, GAVI K 787.02 Nausea 03/23/2009 DEGROOT DO, [...] PRECIADO MD 536.8 DYSPEPSIA 03/23/2009 KRANTHI PRECIADO MD7.02 Nausea 03/23/2009 KRANTHI PRECIADO MD9.01 Abdominal Pain [...] LANGE APRN T 786.50 Chest Pain 04/26/2009 DEGROOT DO, GAVI K 786.50 Chest Pain 04/26/2009 DEGROOT DO, GAVI K 786.50 Chest Pain 04/26/2009 TRACEE LANGE APRN T 786.50 Chest Pain 04/26/2009 TRACEE LANGE APRN T 786.50 Chest Pain 04/26/2009 KRANTHI PRECIADO MD [...] LANGE APRN 844.9 SPRAIN/STRAIN KNEE/LEG 03/09/2010 DEGROOT DOAGUSTÍNA K 719.46 PAIN IN JOINT INVOLVING LOWER LEG 03/09/2010 DEGROOT DO GAVI K 844.9 SPRAIN/STRAIN KNEE/LEG 03/09/2010 DEGROOT DO GAVI K 719.46 PAIN IN JOINT INVOLVING LOWER LEG 03/09/2010 DEGROOT DO GAVI K 844.9 SPRAIN/STRAIN KNEE/LEG 03/09/2010 TRACEE LANGE APRN 719.46 PAIN IN JOINT INVOLVING LOWER LEG 03/09/2010 TRACEE LANGE APRN 844.9 SPRAIN/STRAIN KNEE/LEG 03/09/2010 TRACEE LANGE APRN 719.46 PAIN IN JOINT INVOLVING LOWER LEG 03/09/2010 TRACEE LANGE APRN 844.9 SPRAIN/STRAIN KNEE/LEG 03/09/2010 KRANTHI PRECIADO MD 719.46 PAIN IN JOINT INVOLVING LOWER LEG 03/09/2010 KRANTHI PRECIADO MD 844.9 SPRAIN/STRAIN KNEE/LEG 04/25/2010 KARNTHI PRECIADO MD 786.52 Painful Respiration 04/25/2010 786.52 [...] Respiratory Infections Of Unspecified Site 08/20/2010 TRACEE ALNGE APRN 491.21 Obstructive Chronic Bronchitis With (acute) [...] APRN 780.79 Malaise And Fatigue 12/19/2010 DEGROOT DO GAVI K 780.79 Malaise And Fatigue 12/19/2010 DEGROOT DO GAVI K 780.79 Malaise And Fatigue 12/19/2010 TRACEE LANGE APRN 780.79 Malaise And Fatigue 12/19/2010 TRACEE LANGE APRN 780.79 Malaise And Fatigue 12/19/2010 KRANTHI PRECIADO MD 780.79 Malaise And Fatigue 12/29/2010 Ot 305.20 CANNABIS ABUSE- UNSPEC 12/29/2010 Ot 305.73 AMPHETAMINE ABUSE- REMISS 12/29/2010 Ot 345.90 EPILEPSY UNSPEC W/O MENTION [...] 327.23 OBSTRUCTIVE SLEEP APNEA (ADULT) (PEDIATRIC) 01/07/2011 GAVI DEGROOT DO 327.23 OBSTRUCTIVE SLEEP APNEA (ADULT) (PEDIATRIC) 01/07/2011 GAVI DEGROOT DO K 327.23 OBSTRUCTIVE SLEEP APNEA (ADULT) (PEDIATRIC) [...] 03/19/2011 784.0 Headache 03/19/2011 799.02 HYPOXEMIA 03/19/2011 TRACEE LANGE APRN 780.60 [...] 03/19/2011 KRANTHI PRECIADO MD 799.02 HYPOXEMIA 03/19/2011 TRACEE LANGE APRN 780.60 [...] DEGROOT DO, GAVI K 784.0 Headache 03/19/2011 GAVI DEGROOT DO 799.02 HYPOXEMIA 03/19/2011 TRACEE LANGE APRN 780.60 Fever Unspecified 03/19/2011 TRACEE LANGE APRN 784.0 Headache 03/19/2011 TRACEE LANGE APRN 799.02 HYPOXEMIA 03/19/2011 TRACEE LANGE APRN 780.60 Fever Unspecified 03/19/2011 TRACEE LANGE APRN 784.0 Headache 03/19/2011 TRCAEE LANGE APRN 799.02 HYPOXEMIA 03/19/2011 KRANTHI PRECIADO [...] PREDIABETES (IMPAIRED GLUCOSE TOLERANCE) 03/25/2011 790.29 PREDIABETES (IMPAIRED GLUCOSE TOLERANCE) 03/25/2011 790.29 PREDIABETES (IMPAIRED GLUCOSE TOLERANCE) 03/25/2011 TRACEE LANGE APRN 790.29 PREDIABETES (IMPAIRED GLUCOSE TOLERANCE) 03/25/2011 TRACEE LANGE APRN 790.29 PREDIABETES (IMPAIRED GLUCOSE TOLERANCE) 03/25/2011 790.29 PREDIABETES (IMPAIRED GLUCOSE TOLERANCE) 03/25/2011 790.29 PREDIABETES (IMPAIRED GLUCOSE TOLERANCE) 03/25/2011 KRANTHI [...] TRACEE LANGE APRN 462 Sore Throat 04/10/2011 ANISA MOLINA TRACEE T 496 CHRONIC OBSTRUCTIVE PULMONARY DISEASE 04/10/2011 ANISA MOLINA TRACEE T 462 Sore Throat 04/10/2011 TRACEE LANGE [...] T 496 CHRONIC OBSTRUCTIVE PULMONARY DISEASE 04/10/2011 KRANTHI [...] URETERAL DIS NOS 07/17/2011 Ot V58.69 OTH MED,LT,CURRENT USE 10/11/2011 Ot 305.73 AMPHETAMINE ABUSE- REMISS 10/11/2011 Ot 345.90 EPILEPSY UNSPEC W/O MENTION [...] POSTSURGICAL STATES NEC 10/11/2011 Ot V58.69 OTH MED,LT,CURRENT USE 10/23/2011 KRANTHI PRECIADO MD 401.9 ESSENTIAL [...] LANGE APRN T 530.81 ESOPHAGEAL REFLUX 10/23/2011 401.9 ESSENTIAL HYPERTENSION [...] APRN 787.01 NAUSEA WITH VOMITING 03/31/2012 DEGROOT DO GAVI K 682.9 Cellulitis And Abscess Of Unspecified Sites 03/31/2012 DEGROOT DO GAVI K 780.39 SEIZURES OTHER 03/31/2012 DEGROOT DO, GAVI K 787.01 NAUSEA WITH VOMITING 03/31/2012 DEGROOT DO GAVI K 682.9 Cellulitis And Abscess Of [...] UNSPECIFIED 07/10/2012 368.10 VISUAL DISTURBANCE UNSPECIFIED 07/10/2012 RTACEE LANGE APRN 368.10 VISUAL DISTURBANCE UNSPECIFIED 07/10/2012 [...] DEGROOT DO 070.70 HEPATITIS C, UNSPEC 07/29/2012 DEGROOT DOAGUSTÍNA Alec 789.03 ABDOMINAL PAIN RIGHT LOWER QUADRANT 07/29/2012 [...] NOS 08/04/2012 Ot 414.01 CORONARY ATHEROSCLEROSIS OF [place] CORON 08/04/2012 Ot 496 CHR AIRWAY OBSTRUCT [...] LANGE APRN 788.30 URINARY INCONTINENCE UNSPECIFIED 09/16/2012 GAVI DEGROOT DO 788.30 URINARY INCONTINENCE UNSPECIFIED 09/16/2012 GAVI DEGROOT DO 788.30 URINARY INCONTINENCE UNSPECIFIED 09/16/2012 ANISA PEN TESTER, TRACEE T 788.30 URINARY INCONTINENCE UNSPECIFIED 09/16/2012 [...] TRACEE LANGE APRN 528.9 ORAL MUCOCELE 10/19/2012 KRANTHI PRECIADO MD 528.9 ORAL MUCOCELE 10/28/2012 TRACEE LANGE APRN 278.00 OBESITY 10/28/2012 TRACEE LANGE APRN 278.00 OBESITY 10/28/2012 278.00 OBESITY 10/28/2012 278.00 OBESITY 10/28/2012 KRANTHI PRECIADO MD 278.00 OBESITY 10/28/2012 KRANTHI PRECIADO MD 278.00 OBESITY 10/28/2012 TRACEE LANGE APRN 278.00 OBESITY 10/28/2012 TRACEE LANGE APRN T 278.00 OBESITY 10/28/2012 TRACEE LANGE APRN T 278.00 OBESITY 10/28/2012 DEGROOT DO, GAVI K 278.00 OBESITY 10/28/2012 DEGROOT DO, GAVI K 278.00 OBESITY 10/28/2012 TRACEE LANGE APRN T 278.00 OBESITY 10/28/2012 TRACEE LANGE APRN 278.00 OBESITY 10/28/2012 KRANTHI PRECIADO MD 278.00 [...] Ot 276.7 HYPERPOTASSEMIA 12/20/2012 Ot 305.70 AMPHETAMINE ABUSE- UNSPEC 12/20/2012 Ot 345.90 EPILEPSY UNSPEC W/O MENTION INTRACTABLE 12/20/2012 Ot 401.9 HYPERTENSION NOS 12/20/2012 Ot 414.01 CORONARY ATHEROSCLEROSIS OF [place] CORON 12/20/2012 Ot 486 PNEUMONIA, ORGANISM NOS [...] CASTILLO MD Ot 414.01 CORONARY ATHEROSCLEROSIS OF [place] CORON 05/11/2013 NGOC CASTILLO MD Ot 425.4 [...] OF CHRONIC ISCHEMIC HEART DISEASE 05/18/2013 DEGROOT DO, GAVI K 414.8 OTHER SPECIFIED FORMS OF [...] GAVI K 414.00 CAD 05/21/2013 DEGROOT DO, AGVI K 425.4 CARDIOMYOPHATHY 05/21/2013 DEGROOT DO, GAVI [...] WOUND WITH STATE OF CONSCIOUSNESS UNSPECIFIED 05/30/2013 CHRISSY GONZALES, SANTHOSH Castellano Ot 425.4 PRIM CARDIOMYOPATHY NEC 05/30/2013 CHRISSY GONZALES, SANTHOSH Castellano Ot 786.50 CHEST PAIN NOS 05/30/2013 CHRISSY GONZALES, SANTHOSH Castellano Ot V58.66 LONG-TERM (CURRENT) USE OF ASPIRIN 05/30/2013 CHRISSY GONZALES, SANTHOSH Castellano Ot V58.69 OT MED,LT,CURRENT USE 06/24/2013 AGUSTÍN DEGROOT DOA Alec Ot 041.04 STREPTOCOCCUS INFECTION NOS, GROUP D (EN 06/24/2013 GAVI DEGROOT DO Ot 041.12 METHICILLIN RESISTANT STAPHYLOCOCCUS AUR 06/24/2013 MIKAYLA LANGE, GAVI Alec Ot 041.84 BACTERIAL INFECTION DUE TO OTHER ANAEROB 06/24/2013 MIKAYLA LANGE GAVI K Ot 041.85 BACTERIAL INFEC DUE TO OTH GRAM-NEG ORGA 06/24/2013 DEGROOT DO GAVI Alec Ot 070.54 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 06/24/2013 DEGROOT DO GAVI Alec Ot 276.7 HYPERPOTASSEMIA 06/24/2013 MIKAYLA LANGE GAVI K Ot 285.29 ANEMIA OF OTHER CHRONIC DISEASE 06/24/2013 MIKAYLA LANGE GAVI K Ot 300.00 ANXIETY STATE NOS 06/24/2013 DEGROOT DO GAVI K Ot 305.70 AMPHETAMINE ABUSE-UNSPEC 06/24/2013 MIKAYLA LANGE GAVI K Ot 311 DEPRESSIVE DISORDER NEC 06/24/2013 MIKAYLA LANGE GAVI K Ot 345.90 EPILEPSY UNSPEC W/O MENTION INTRACTABLE 06/24/2013 MIKAYLA LANGE GAVI K Ot 403.90 HYPTNSV CHR KID DIS, UNSPEC, W CHR KD ST 06/24/2013 MIKAYLA LANGE GAVI K Ot 414.01 CORONARY ATHEROSCLEROSIS OF [place] CORON 06/24/2013 GAVI DEGROOT DO Ot 425.4 PRIM CARDIOMYOPATHY NEC 06/24/2013 MIKAYLA LANGE GAVI Alec Ot 438.89 OTH LATE EFFECT-CEREBROVASCULAR DISEASE 06/24/2013 MIKAYLA LANGE GAVI K Ot 491.20 OBSTR CHRONIC BRONCHITIS, W/O EXACERBATI 06/24/2013 MIKAYLA LANGE GAVI K Ot 530.81 ESOPHAGEAL REFLUX 06/24/2013 MIKAYLA LANGE GAVI K Ot 585.9 CHRONIC KIDNEY DISEASE, UNSPECIFIED 06/24/2013 GAVI DEGROOT DO Ot 682.3 CELLULITIS OF ARM 06/24/2013 GAVI DEGROOT DO Ot 682.6 CELLULITIS OF LEG 06/24/2013 GAVI DEGROOT DO Ot 728.87 MUSCLE WEAKNESS (GENERALIZED) 06/24/2013 GAVI DEGROOT DO Ot 785.0 TACHYCARDIA NOS 07/29/2013 BRI VILLASEÑOR Ot 682.6 CELLULITIS OF LEG 09/14/2013 ABELARDO AMANDA MD Ot 070.70 UNSPECIFIED VIRAL 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 09/14/2013 ABELARDO AMANDA MD Ot 305.20 CANNABIS ABUSE-UNSPEC 09/14/2013 ABELARDO AMANDA MD Ot 305.70 AMPHETAMINE ABUSE-UNSPEC 09/14/2013 ABELARDO AMANDA MD Ot 338.29 OTHER CHRONIC PAIN 09/14/2013 ABELARDO AMANDA MD Ot 403.90 HYPTNSV CHR KID DIS, UNSPEC, W CHR KD ST 09/14/2013 ABELARDO AMANDA MD Ot 414.01 CORONARY ATHEROSCLEROSIS OF [place] CORON 09/14/2013 ABELARDO AMANDA MD Ot 425.4 [...] TRACEE LANGE APRN 786.2 COUGH 09/18/2013 DEGROOT DOAGUSTÍNA K 786.2 COUGH 09/18/2013 DEGROOT DOAGUSTÍNA K 786.2 COUGH 09/18/2013 TRACEE LANGE APRN 786.2 COUGH 09/18/2013 TRACEE LANGE APRN 786.2 COUGH 09/18/2013 KRANTHI PRECIADO MD 786.2 COUGH 09/29/2013 CHRISSY GONZALES, SANTHOSH Castellano Ot 425.4 PRIM CARDIOMYOPATHY NEC 09/29/2013 CHRISSY GONZALES, SANTHOSH Castellano Ot 786.59 CHEST PAIN NEC 09/29/2013 CHRISSY GONZALES, SANTHOSH Castellano Ot 790.92 COAGULATION PROFILE, ABNORMAL 11/14/2013 NEERAJ VILLA APRN Ot 724.2 LUMBAGO 11/14/2013 NEERAJ VILLA APRN Ot 789.00 ABDOMINAL PAIN, UNSPECIFIED SITE 02/04/2014 HOLA BRIGHT DO Ot 300.00 ANXIETY STATE NOS 02/04/2014 HOLA BRIGHT DO Ot 491.21 OBSTR CHRONIC BRONCHITIS, W (ACUTE) EXAC 02/04/2014 HOLA BRIGHT DO Ot 786.50 CHEST PAIN NOS 02/04/2014 HOLA [...] APRN Ot 786.05 SHORTNESS OF BREATH 04/08/2014 GAVI DEGROOT DO Ot 285.29 ANEMIA OF OTHER CHRONIC DISEASE 04/08/2014 GAVI DEGROOT DO Ot 296.80 BIPOLAR DISORDER, UNSPECIFIED 04/08/2014 AGUSTÍN DEGROOT DOA Alec Ot 300.00 ANXIETY STATE NOS 04/08/2014 GAVI DEGROOT DO Ot 305.70 AMPHETAMINE ABUSE-UNSPEC 04/08/2014 DEGROOT DO, GAVI K Ot 397.0 TRICUSPID VALVE DISEASE 04/08/2014 MIKAYLA LANGE GAVI K Ot 403.90 HYPTNSV CHR KID DIS, UNSPEC, W CHR KD ST 04/08/2014 MIKAYLA LANGE GAVI K Ot 416.8 CHR PULMON HEART DIS NEC 04/08/2014 MIKAYLA LANGE GAVI K Ot 424.0 MITRAL VALVE DISORDER 04/08/2014 MIKAYLA LANGE GAVI K Ot 425.4 PRIM CARDIOMYOPATHY NEC 04/08/2014 MIKAYLA LANGE GAVI K Ot 428.0 CONGESTIVE HEART FAILURE NOS 04/08/2014 MIKAYLA LANGE GAVI K Ot 428.23 ACUTE CHRONIC SYSTOLIC HRT FAILURE 04/08/2014 MIKAYLA LANGE GAVI K Ot 466.0 ACUTE BRONCHITIS 04/08/2014 MIKAYLA LANGE GAVI K Ot 493.22 CHRONIC OBSTRUCTIVE ASTHMA, W (ACUTE) EX 04/08/2014 MIKAYLA LANGE GAVI K Ot 518.84 ACUTE AND CHRONIC RESPIRATORY FAILURE 04/08/2014 MIKAYLA LANGE GAVI K Ot 530.81 ESOPHAGEAL REFLUX 04/08/2014 MIKAYLA LANGE GAVI K Ot 585.9 CHRONIC KIDNEY DISEASE, UNSPECIFIED 04/08/2014 MIKAYLA LANGE GAVI K Ot V15.52 PERSONAL HISTORY OF TRAUMATIC BRAIN INJU 04/08/2014 MIKAYLA LANGE GAVI Michael Ot V45.02 AUTO IMPLANTABLE CARDIAC DEFIBRILLATOR I [...] OF OTHER SITES OF TRUNK 06/05/2014 STAR ORITZ Ot E000.8 OTHER EXTERNAL CAUSE STATUS 06/05/2014 STAR ORTIZ Ot E849.0 ACCIDENT IN HOME 06/05/2014 STAR ORTIZ Ot E888.9 FALL NOS 06/10/2014 MIKAYLA LANGE GAVI K Ot 038.9 SEPTICEMIA NOS 06/10/2014 MIKAYLA LANGE GAVI K Ot 041.11 METHICILLIN SUSCEPTIBLE STAPHYLOCOCCUS A 06/10/2014 MIKAYLA LANGE, GAVI K Ot 276.7 HYPERPOTASSEMIA 06/10/2014 MIKAYLA LANGE, GAVI K Ot 285.29 ANEMIA OF OTHER CHRONIC DISEASE 06/10/2014 MIKAYLA LANGE, GAVI K Ot 305.71 AMPHETAMINE ABUSE-CONTIN 06/10/2014 MIKAYLA LANGE, GAVI K Ot 397.0 TRICUSPID VALVE DISEASE 06/10/2014 MIKAYLA LANGE GAVI K Ot 403.90 HYPTNSV CHR KID DIS, UNSPEC, W CHR KD ST 06/10/2014 DEGROOT DO, GAVI K Ot 425.4 PRIM CARDIOMYOPATHY NEC 06/10/2014 MIKAYLA LANGE, GAVI K Ot 428.0 CONGESTIVE HEART FAILURE NOS 06/10/2014 MIKAYLA LANGE, GAVI K Ot 496 CHR AIRWAY OBSTRUCT NEC 06/10/2014 MIKAYLA LANGE, GAVI K Ot 518.83 CHRONIC RESPIRATORY FAILURE 06/10/2014 MIKAYLA LANGE, GAVI K Ot 585.3 CHRONIC KIDNEY DISEASE, STAGE III (MODER 06/10/2014 DEGROOT DO GAVI K Ot 719.45 JOINT PAIN-PELVIS 06/10/2014 MIKAYLA LANGE GAVI K Ot 995.91 SEPSIS 06/10/2014 MIKAYLA LANGE GAVI Alec Ot V15.81 HX OF PAST NONCOMPLIANCE 08/05/2014 [...] GONZALES, SANTHOSH Castellano Ot 724.2 LUMBAGO 01/19/2015 SANTHOSH LOWE MD Ot 789.00 ABDOMINAL PAIN, UNSPECIFIED SITE 02/02/2015 STAR ORTIZ Ot 305.90 DRUG ABUSE NEC-UNSPEC 02/02/2015 STAR ORTIZ Ot 599.0 URIN TRACT INFECTION NOS 02/02/2015 STAR ORTIZ Ot 724.2 LUMBAGO 02/02/2015 STAR ORTIZ Ot V58.69 OT MED,LT,CURRENT USE 01/27/2016 SANTHOSH LOWE MD Ot M54.5 LOW BACK PAIN 01/27/2016 SANTHOSH LOWE MD Ot R74.8 ABNORMAL LEVELS OF OTHER SERUM [...] 428.0 CONGESTIVE HEART FAILURE NOS 01/28/2016 KAILA DO, HOLA K Ot E86.0 DEHYDRATION 01/28/2016 KAILA DO, HOLA [...] Ot M54.5 LOW BACK PAIN 01/29/2016 CHRISSY GONAZLES, SANTHOSH Castellano Ot R74.8 ABNORMAL LEVELS OF [...] Ot 428.0 CONGESTIVE HEART FAILURE NOS 08/05/2016 ABELARDO AMANDA MD Ot 428.0 CONGESTIVE HEART FAILURE NOS 08/05/2016 KAILA DO, HOLA K Ot I10 ESSENTIAL (PRIMARY) HYPERTENSION 08/05/2016 KAILA DO, HOLA K Ot J44.9 CHRONIC OBSTRUCTIVE PULMONARY DISEASE, U 08/05/2016 KAILA DO, HOLA K Ot L03.115 CELLULITIS OF RIGHT LOWER LIMB 08/05/2016 KAILA , HOLA K Ot N39.0 URINARY TRACT INFECTION, SITE NOT SPECIF 08/05/2016 KAILA DO, HOLA K Ot R30.0 DYSURIA 08/05/2016 KAILA , HOLA K Ot Z23 ENCOUNTER FOR IMMUNIZATION 08/05/2016 KAILA , HOLA K Ot Z79.899 OTHER CHEMIC MANGLER (CURRENT) DRUG THERAPY 08/05/2016 KAILA , HOLA K Ot Z87.891 PERSONAL HISTORY OF NICOTINE DEPENDENCE 11/23/2016 ABELARDO AMANDA MD Ot 397.0 TRICUSPID VALVE DISEASE 11/23/2016 ABELARDO AMANDA MD J Ot 424.0 MITRAL VALVE DISORDER 11/23/2016 ABELARDO AMANDA MD J Ot 428.0 CONGESTIVE HEART FAILURE NOS 11/23/2016 ABELARDO AMANDA MD J Ot 428.0 CONGESTIVE HEART FAILURE NOS 11/23/2016 ABELARDO AMANDA MD Ot 397.0 TRICUSPID VALVE DISEASE 11/23/2016 ABELARDO AMANDA MD J Ot 424.0 MITRAL VALVE DISORDER 11/23/2016 ABELARDO AMANDA MD J Ot 428.0 CONGESTIVE HEART FAILURE NOS 11/23/2016 ABELARDO AMANDA MD Ot 428.0 CONGESTIVE HEART FAILURE NOS 11/23/2016 QUIN JONES MD Ot I25.10 ATHSCL HEART DISEASE OF [place] CORONARY 11/23/2016 QUIN JONES MD Ot J44.9 CHRONIC OBSTRUCTIVE PULMONARY DISEASE, U 11/23/2016 QUIN JONES MD Ot R05 COUGH 11/23/2016 QUIN JONES MD Ot Z79.899 OTHER CHEMIC MANGLER (CURRENT) DRUG THERAPY 11/26/2016 QUIN JONES MD Ot I25.10 ATHSCL HEART DISEASE OF [place] CORONARY 11/26/2016 QUIN JONES MD Ot J44.9 CHRONIC OBSTRUCTIVE PULMONARY DISEASE, U 11/26/2016 QUIN JONES MD Ot R05 COUGH 11/26/2016 QUIN JONES MD Ot Z79.899 OTHER CHEMIC MANGLER (CURRENT) DRUG THERAPY 12/26/2016 KAILA DO, HOLA K Ot I10 ESSENTIAL (PRIMARY) HYPERTENSION 12/26/2016 KAILA DO, HOLA K Ot J44.9 CHRONIC OBSTRUCTIVE PULMONARY DISEASE, U 12/26/2016 KAILA DO, HOLA K Ot L03.115 CELLULITIS OF RIGHT LOWER LIMB 12/26/2016 KAILA DO, HOLA K Ot N39.0 URINARY TRACT INFECTION, SITE NOT SPECIF 12/26/2016 KAILA DO, HOLA K Ot R30.0 DYSURIA 12/26/2016 KAILA DO, HOLA K Ot Z23 ENCOUNTER FOR IMMUNIZATION 12/26/2016 KAILA DO, HOLA K Ot Z79.899 OTHER MCC (CURRENT) DRUG THERAPY 12/26/2016 KAILA , HOLA K Ot Z87.891 PERSONAL HISTORY OF NICOTINE DEPENDENCE 01/01/2017 ABELARDO AMANDA MD Ot 397.0 TRICUSPID VALVE DISEASE 01/01/2017 ABELARDO AMANDA MD Ot 424.0 MITRAL VALVE DISORDER 01/01/2017 ABELARDO AMANDA MD Ot 428.0 CONGESTIVE HEART FAILURE NOS 01/01/2017 ABELARDO AMANDA MD Ot 428.0 CONGESTIVE HEART FAILURE NOS 03/06/2017 QUIN JONES MD Ot I16.0 HYPERTENSIVE URGENCY 03/06/2017 QUIN JNOES MD Ot I25.10 ATHSCL HEART DISEASE OF [place] CORONARY 03/06/2017 QUNI JONES MD Ot J44.9 CHRONIC OBSTRUCTIVE PULMONARY DISEASE, U 03/06/2017 QUIN JONES MD Ot K59.00 CONSTIPATION, UNSPECIFIED 03/06/2017 QUIN JONES MD Ot R10.30 LOWER ABDOMINAL PAIN, UNSPECIFIED 03/06/2017 QUIN JONES MD Ot Z79.899 OTHER MCC (CURRENT) DRUG THERAPY 03/06/2017 ABELARDO AMANDA MD Ot 397.0 TRICUSPID VALVE DISEASE 03/06/2017 ABELARDO AMANDA MD Ot 424.0 MITRAL VALVE DISORDER 03/06/2017 ABELARDO AMANDA MD Ot 428.0 CONGESTIVE HEART FAILURE NOS 03/06/2017 ABELARDO AMANDA MD Ot 428.0 CONGESTIVE HEART FAILURE NOS 03/07/2017 QUIN JONES MD Ot I16.0 HYPERTENSIVE URGENCY 03/07/2017 QUIN JONES MD Ot I25.10 ATHSCL HEART DISEASE OF [place] CORONARY 03/07/2017 QUIN JONES MD, Ot J44.9 CHRONIC OBSTRUCTIVE PULMONARY DISEASE, U 03/07/2017 QUIN JONES MD, Ot K59.00 CONSTIPATION, UNSPECIFIED 03/07/2017 QUIN JONES MD Ot R10.30 LOWER ABDOMINAL PAIN, UNSPECIFIED 03/07/2017 QUIN JONES MD, Ot Z79.899 OTHER CHEMIC MANGLER (CURRENT) DRUG THERAPY 06/18/2017 ABELARDO AMANDA MD [...] ORTIZ Ot I25.10 ATHSCL HEART DISEASE OF [place] CORONARY 06/18/2017 STAR ORTIZ Ot I25.2 OLD [...] PERSONAL HISTORY OF URINARY CALCULI 06/18/2017 STAR ORITZ Ot Z87.448 PERSONAL HISTORY OF OTHER DISEASES [...] TRICUSPID VALVE DISEASE 07/23/2017 ABELARDO AMANDA MD Ot 424.0 MITRAL VALVE DISORDER 07/23/2017 ABELARDO AMANDA MD Ot 428.0 CONGESTIVE HEART FAILURE NOS 07/23/2017 ABELARDO AMANDA MD Ot 428.0 CONGESTIVE HEART FAILURE NOS 02/03/2018 ABELARDO AMANDA MD Ot 397.0 TRICUSPID VALVE DISEASE 02/03/2018 ABELARDO AMANDA MD Ot 424.0 MITRAL VALVE DISORDER 02/03/2018 ABELARDO AMANDA MD Ot 428.0 CONGESTIVE HEART FAILURE NOS 02/03/2018 VASILIY MD, BASHAR J Ot 428.0 CONGESTIVE HEART FAILURE NOS 02/04/2018 [...] MD Ot I25.10 ATHSCL HEART DISEASE OF [place] CORONARY 02/04/2018 MICHAEL BURRELL MD Ot I25.2 [...] CONVULSIONS 02/04/2018 MICHAEL BURRELL MD Ot Z79.51 MCC (CURRENT) USE OF INHALED STERO 02/04/2018 MICHAEL BURRELL MD Ot Z79.52 MCC (CURRENT) USE OF SYSTEMIC STER 02/04/2018 MICHAEL [...] Z88.8 ALLERGY STATUS TO OT DRUG/MEDS/BIOL SUB 02/04/2018 MICHAEL BURRELL MD Ot [...] MD Ot I25.10 ATHSCL HEART DISEASE OF [place] CORONARY 02/05/2018 MICHAEL BURRELL MD Ot I25.2 [...] CONVULSIONS 02/05/2018 MICHAEL BURRELL MD Ot Z79.51 MCC (CURRENT) USE OF INHALED STERO 02/05/2018 MICHAEL BURRELL MD Ot Z79.52 CHEMIC MANGLER (CURRENT) USE OF SYSTEMIC STER 02/05/2018 MICHAEL [...] COMP OF PREG, CHLDBR 02/05/2018 MICHAEL BURRELL MD, Ot Z87.820 PERSONAL HISTORY OF TRAUMATIC BRAIN INJU 02/05/2018 MICHAEL BURRELL MD Ot Z88.8 ALLERGY STATUS TO [facility] DRUG/MEDS/BIOL SUB 02/05/2018 MICHAEL BURRELL MD [...] DO Ot I25.10 ATHSCL HEART DISEASE OF [place] CORONARY 02/24/2018 GAVI DEGROOT DO Ot I27.20 PULMONARY HYPERTENSION, UNSPECIFIED 02/24/2018 GAVI DEGROOT DO Ot I34.0 NONRHEUMATIC MITRAL (VALVE) INSUFFICIENC 02/24/2018 GAVI DEGROOT DO Ot I42.0 DILATED CARDIOMYOPATHY 02/24/2018 GAVI DEGROOT DO Ot I50.21 ACUTE SYSTOLIC (CONGESTIVE) HEART FAILUR 02/24/2018 GAVI DEGROOT DO Ot N18.9 CHRONIC KIDNEY DISEASE, UNSPECIFIED 02/24/2018 GAVI DEGROOT DO Ot Z79.899 OTHER CHEMIC MANGLER (CURRENT) DRUG THERAPY 02/24/2018 GAVI DEGROOT DO Ot G40.909 EPILEPSY, UNSP, NOT INTRACTABLE, WITHOUT 02/24/2018 GAVI DEGROOT DO Ot G89.29 OTHER CHRONIC PAIN 02/24/2018 GAVI DEGROOT DO Ot I12.9 HYPERTENSIVE CHRONIC KIDNEY DISEASE W ST 02/24/2018 GAVI DEGROOT DO Ot I25.10 ATHSCL HEART DISEASE OF [place] CORONARY 02/24/2018 GAVI DEGROOT DO Ot I27.20 PULMONARY HYPERTENSION, UNSPECIFIED 02/24/2018 GAVI DEGROOT DO Ot I34.0 NONRHEUMATIC MITRAL (VALVE) INSUFFICIENC 02/24/2018 GAVI DEGROOT DO Ot I42.0 DILATED CARDIOMYOPATHY 02/24/2018 GAVI DEGROOT DO Ot I50.21 ACUTE SYSTOLIC (CONGESTIVE) HEART FAILUR 02/24/2018 GAVI DEGROOT DO Ot N18.9 CHRONIC KIDNEY DISEASE, UNSPECIFIED 02/24/2018 GAVI DEGROOT DO Ot Z79.899 OTHER M[facility] (CURRENT) DRUG THERAPY 05/15/2018 Ot A41.9 SEPSIS, UNSPECIFIED ORGANISM 05/15/2018 Ot B19.20 UNSPECIFIED VIRAL 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 05/15/2018 Ot E87.1 HYPO-OSMOLALITY AND HYPONATREMIA 05/15/2018 Ot F15.10 OTHER STIMULANT ABUSE, UNCOMPLICATED 05/15/2018 Ot F41.9 ANXIETY DISORDER, UNSPECIFIED 05/15/2018 Ot F43.10 POST-TRAUMATIC STRESS DISORDER, UNSPECIF 05/15/2018 Ot G40.909 EPILEPSY, UNSP, NOT INTRACTABLE, WITHOUT 05/15/2018 Ot I12.9 HYPERTENSIVE CHRONIC KIDNEY DISEASE W ST 05/15/2018 Ot I25.10 ATHSCL HEART DISEASE OF [place] CORONARY 05/15/2018 Ot I42.9 CARDIOMYOPATHY, UNSPECIFIED 05/15/2018 [...] Z11.2 ENCOUNTER FOR SCREENING FOR OTHER BACTER 08/25/2018 Paolo PERKINS MD Ot I34.0 NONRHEUMATIC MITRAL (VALVE) INSUFFICIENC 08/26/2018 Paolo PERKINS MD Ot I34.0 NONRHEUMATIC MITRAL (VALVE) INSUFFICIENC 08/31/2018 Paolo PERKINS MD Ot I08.1 RHEUMATIC DISORDERS OF BOTH MITRAL AND T 08/31/2018 Paolo PERKINS MD Ot Z11.2 ENCOUNTER FOR SCREENING FOR OTHER BACTER 09/01/2018 Paolo PERKINS MD Ot N18.9 CHRONIC KIDNEY DISEASE, UNSPECIFIED 09/10/2018 NEERAJ VILLA APRN Ot B19.20 UNSPECIFIED VIRAL 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 09/10/2018 NEERAJ VILLA APRN Ot D64.9 ANEMIA, UNSPECIFIED 09/10/2018 NEERAJ VILLA APRN Ot F31.9 BIPOLAR DISORDER, UNSPECIFIED 09/10/2018 NEERAJ VILLA APRN Ot F41.9 ANXIETY DISORDER, UNSPECIFIED 09/10/2018 NEERAJ VILLA APRN Ot G40.909 EPILEPSY, UNSP, NOT INTRACTABLE, WITHOUT 09/10/2018 NEERAJ VILLA APRN Ot I10 ESSENTIAL (PRIMARY) HYPERTENSION 09/10/2018 NEERAJ VILLA APRN Ot J18.9 PNEUMONIA, UNSPECIFIED ORGANISM 09/10/2018 NEERAJ VILLA APRN Ot J44.9 CHRONIC OBSTRUCTIVE PULMONARY DISEASE, U 09/10/2018 NEERAJ VILLA APRN Ot R56.9 UNSPECIFIED CONVULSIONS 09/10/2018 NEERAJ VILLA APRN Ot Z77.22 CNTCT W AND EXPSR TO ENVIRON TOBACCO SMO 09/10/2018 NEERAJ VILLA APRN Ot Z79.51 MCC (CURRENT) USE OF INHALED STERO 09/10/2018 NEERAJ VILLA APRN Ot Z79.52 MCC (CURRENT) USE OF SYSTEMIC STER 09/10/2018 NEERAJ VILLA APRN Ot Z82.49 FAMILY HX OF ISCHEM HEART DIS AND OTH DI 09/10/2018 NEERAJ VILLA APRN Ot Z85.41 PERSONAL HISTORY OF MALIGNANT NEOPLASM O 09/10/2018 NEERAJ VILLA APRN Ot Z86.73 PRSNL HX OF TIA (TIA), AND CEREB INFRC W 09/10/2018 NEERAJ VILLA APRN Ot Z87.19 PERSONAL HISTORY OF OTHER DISEASES OF TH 09/10/2018 NEERAJ VILLA APRN Ot Z87.440 PERSONAL HISTORY OF URINARY (TRACT) INFE 09/10/2018 NEERAJ VILLA APRN Ot Z87.448 PERSONAL HISTORY OF OTHER DISEASES OF UR 09/10/2018 NEERAJ VILLA APRN Ot Z87.820 PERSONAL HISTORY OF TRAUMATIC BRAIN INJU 09/10/2018 NEERAJ VILLA APRN Ot Z88.8 ALLERGY STATUS TO OTH DRUG/MEDS/BIOL SUB 09/10/2018 NEERAJ VILLA APRN Ot Z90.710 ACQUIRED ABSENCE OF BOTH CERVIX AND UTER 09/10/2018 NEERAJ VILLA APRN Ot Z98.890 OTHER SPECIFIED POSTPROCEDURAL STATES 09/14/2018 NEERAJ VILLA APRN Ot B19.20 UNSPECIFIED VIRAL 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 09/14/2018 NEERAJ VILLA APRN Ot D64.9 ANEMIA, UNSPECIFIED 09/14/2018 NEERAJ VILLA APRN Ot F31.9 BIPOLAR DISORDER, UNSPECIFIED 09/14/2018 NEERAJ VILLA APRN Ot F41.9 ANXIETY DISORDER, UNSPECIFIED 09/14/2018 NEERAJ VILLA APRN Ot G40.909 EPILEPSY, UNSP, NOT INTRACTABLE, WITHOUT 09/14/2018 NEERAJ VILLA APRN Ot I10 ESSENTIAL (PRIMARY) HYPERTENSION 09/14/2018 NEERAJ VILLA APRN Ot J18.9 PNEUMONIA, UNSPECIFIED ORGANISM 09/14/2018 NEERAJ VILLA APRN Ot J44.9 CHRONIC OBSTRUCTIVE PULMONARY DISEASE, U 09/14/2018 NEERAJ VILLA APRN Ot R56.9 UNSPECIFIED CONVULSIONS 09/14/2018 NEERAJ VILLA APRN Ot Z77.22 CNTCT W AND EXPSR TO ENVIRON TOBACCO SMO 09/14/2018 NEERAJ VILLA APRN Ot Z79.51 MCC (CURRENT) USE OF INHALED STERO 09/14/2018 NEERAJ VILLA APRN Ot Z79.52 MCC (CURRENT) USE OF SYSTEMIC STER 09/14/2018 NEERAJ VILLA APRN Ot Z82.49 FAMILY HX OF ISCHEM HEART DIS AND OTH DI 09/14/2018 NEERAJ VILLA APRN Ot Z85.41 PERSONAL HISTORY OF MALIGNANT NEOPLASM O 09/14/2018 NEERAJ VILLA APRN Ot Z86.73 PRSNL HX OF TIA (TIA), AND CEREB INFRC W 09/14/2018 NEERAJ VILLA APRN Ot Z87.19 PERSONAL HISTORY OF OTHER DISEASES OF TH 09/14/2018 NEERAJ VILLA APRN Ot Z87.440 PERSONAL HISTORY OF URINARY (TRACT) INFE 09/14/2018 NEERAJ VILLA APRN Ot Z87.448 PERSONAL HISTORY OF OTHER DISEASES OF UR 09/14/2018 NEERAJ VILLA APRN Ot Z87.820 PERSONAL HISTORY OF TRAUMATIC BRAIN INJU 09/14/2018 NEERAJ VILLA APRN Ot Z88.8 ALLERGY STATUS TO OTH DRUG/MEDS/BIOL SUB 09/14/2018 NEERAJ VILLA APRN Ot Z90.710 ACQUIRED ABSENCE OF BOTH CERVIX AND UTER 09/14/2018 NEERAJ VILLA APRN Ot Z98.890 OTHER SPECIFIED POSTPROCEDURAL STATES 09/18/2018 GREGORIO GONZALES, Paolo GARCIA Ot I08.1 RHEUMATIC DISORDERS OF BOTH MITRAL AND T 09/18/2018 GREGORIO GONZALES, M RADHA Ot Z11.2 ENCOUNTER FOR SCREENING FOR OTHER BACTER 09/29/2018 NEERAJ VILLA APRN Ot B19.20 UNSPECIFIED VIRAL 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 09/29/2018 NEERAJ VILLA APRN Ot D64.9 ANEMIA, UNSPECIFIED 09/29/2018 NEERAJ VILLA APRN Ot F31.9 BIPOLAR DISORDER, UNSPECIFIED 09/29/2018 NEERAJ VILLA APRN Ot F41.9 ANXIETY DISORDER, UNSPECIFIED 09/29/2018 NEERAJ VILLA APRN Ot G40.909 EPILEPSY, UNSP, NOT INTRACTABLE, WITHOUT 09/29/2018 NEERAJ VILLA APRN Ot I10 ESSENTIAL (PRIMARY) HYPERTENSION 09/29/2018 NEERAJ VILLA APRN, Ot J18.9 PNEUMONIA, UNSPECIFIED ORGANISM 09/29/2018 NEERAJ VILLA APRN Ot J44.9 CHRONIC OBSTRUCTIVE PULMONARY DISEASE, U 09/29/2018 NEERAJ VILLA APRN Ot R56.9 UNSPECIFIED CONVULSIONS 09/29/2018 NEERAJ VILLA APRN Ot Z77.22 CNTCT W AND EXPSR TO ENVIRON TOBACCO SMO 09/29/2018 NEERAJ VILLA APRN Ot Z79.51 MCC (CURRENT) USE OF INHALED STERO 09/29/2018 NEERAJ VILLA APRN Ot Z79.52 CHEMIC MANGLER (CURRENT) USE OF SYSTEMIC STER 09/29/2018 NEERAJ VILLA APRN Ot Z82.49 FAMILY HX OF ISCHEM HEART DIS AND OTH DI 09/29/2018 NEERAJ VILLA APRN Ot Z85.41 PERSONAL HISTORY OF MALIGNANT NEOPLASM O 09/29/2018 NEERAJ VILLA APRN Ot Z86.73 PRSNL HX OF TIA (TIA), AND CEREB INFRC W 09/29/2018 NEERAJ VILLA APRN Ot Z87.19 PERSONAL HISTORY OF OTHER DISEASES OF TH 09/29/2018 NEERAJ VILLA APRN Ot Z87.440 PERSONAL HISTORY OF URINARY (TRACT) INFE 09/29/2018 NEERAJ VILLA APRN Ot Z87.448 PERSONAL HISTORY OF OTHER DISEASES OF UR 09/29/2018 NEERAJ VILLA APRN Ot Z87.820 PERSONAL HISTORY OF TRAUMATIC BRAIN INJU 09/29/2018 NEERAJ VILLA APRN Ot Z88.8 ALLERGY STATUS TO OT DRUG/MEDS/BIOL SUB 09/29/2018 NEERAJ VILLA APRN Ot Z90.710 ACQUIRED ABSENCE OF BOTH CERVIX AND UTER 09/29/2018 NEERAJ VILLA APRN Ot Z98.890 OTHER SPECIFIED POSTPROCEDURAL STATES 09/30/2018 Paolo PERKINS MD Ot I34.0 NONRHEUMATIC MITRAL (VALVE) INSUFFICIENC 10/19/2018 Paolo PERKINS MD Ot I08.1 RHEUMATIC DISORDERS OF BOTH MITRAL AND T 10/19/2018 Paolo PERKINS MD Ot I27.20 PULMONARY HYPERTENSION, UNSPECIFIED 10/19/2018 Paolo PERKINS MD Ot I42.8 OTHER CARDIOMYOPATHIES 11/10/2018 Paolo PERKINS MD Ot I08.1 RHEUMATIC DISORDERS OF BOTH MITRAL AND T 11/10/2018 Paolo PERKINS MD Ot Z11.2 ENCOUNTER FOR SCREENING FOR OTHER BACTER Procedures Code Description Performed By Performed On 38.93 VENOUS CATHETERIZATION NEC 02/05/2010 53.69 OTH OPEN REP OTH HERNIA OF ANTER ABD W 02/05/2010 Urology [place] 09/16/2012 General S Logan Kwan 10/28/2012 02170 ROUTINE VENIPUNCTURE 12/09/2012 31652 CMP 12/09/2012 17847 PHENOBARBITAL 12/09/2012 66327 TSH 12/09/2012 29781 CBC 12/09/2012 PODIATRY CURT [facility]INBERG 03/02/2013 37.22 LEFT HEART CARDIAC CATH 05/10/2013 88.53 LT HEART ANGIOCARDIOGRAM 05/10/2013 88.56 CORONAR ARTERIOGR-2 CATH 05/10/2013 13827 ECHO 2D 05/21/2013 86.04 OTHER SKIN SUBQ I D 06/20/2013 Physical Wound Care, [facility] 06/29/[address] ABDOMEN & PELVIS W/ & W/O CONTRAST 12/10/2013 26226 OXIMETRY 12/10/2013 77453 ROUTINE VENIPUNCTURE 08/05/2014 11779 CBC 08/05/2014 8207945 GFR CALC (RESULT ONLY) 08/05/2014 13972 CMP 08/05/2014 00790 OXIMETRY 11/28/2014 J1885 TORADOL PER 15 MG, INJ KETOROLAC TROMETHAMINE 11/28/2014 82123 EAR LAVAGE 02/02/2015 [id number] INSERTION OF INFUSION DEV INTO SUP VENA [...] gravity of urine by test strip 1.010 1.016-1.022 Urine protein assay by test strip, semi-quantitative [...] sediment leukocyte count by microscopy (number/high power field) [HPF] NRG Bacteria detection in urine sediment [...] culture - 08/05/16 21:25 Bacterial urine culture [id number] NRG COLONY COUNT >100,000/ML NRG FTX;REPORTABLE SENSITIVITY REPORTED 08/07/16 8:10 NR Bacterial susceptibility panel - 08/05/16 21:25 Gentamicin susceptibility test by minimum inhibitory concentration <= NRG Trimethoprim/sulfamethoxazole susceptibility test by minimum inhibitoryconcentration <= NRG Ampicillin susceptibility test by minimum inhibitory concentration <= NRG Tobramycin susceptibility test by minimum inhibitory concentration <= NRG Cefazolin susceptibility test by minimum inhibitory concentration <= NRG Ceftriaxone susceptibility test by minimum inhibitory concentration <= NRG Ampicillin/sulbactam susceptibility test by minimum inhibitory concentration <= NRG Piperacillin/tazobactam susceptibility test by minimum inhibitory concentration <= NRG Ciprofloxacin susceptibility test by minimum inhibitory concentration <= NRG Meropenem susceptibility test by minimum inhibitory concentration <= NRG Nitrofurantoin susceptibility test by minimum inhibitory concentration <= NRG Aztreonam susceptibility test by minimum inhibitory concentration <= NRG Extended spectrum beta lactamase (ESBL) producing [...] Automated erythrocyte mean corpuscular hemoglobin concentration measurement (mass/volume) 33 g/dL 32-36 Automated erythrocyte distribution width ratio 13.2 % 10.0- 14.5 Automated blood platelet count (count/volume) 308 10*3/uL [...] Blood monocytes automated count (number/volume) 0.6 10*3 0.0- 1.0 Automated eosinophil count 0.3 10*3/uL 0.0-0.3 Automated [...] Serum or plasma aspartate aminotransferase measurement (enzymatic activity/volume) 18 U/L 5-34 Serum or plasma alanine aminotransferase measurement (enzymatic activity/volume) 26 U/L 0-55 Serum or plasma protein [...] gravity of urine by test strip 1.015 1.016-1.022 Urine protein assay by test strip, semi-quantitative [...] sediment leukocyte count by microscopy (number/high power field) NONE NRG Bacteria detection in urine sediment [...] Automated erythrocyte mean corpuscular hemoglobin concentration measurement (mass/volume) 33 g/dL 32-36 Automated erythrocyte distribution width ratio 13.5 % 10.0- 14.5 Automated blood platelet count (count/volume) 289 10*3/uL [...] Blood monocytes automated count (number/volume) 0.5 10*3 0.0- 1.0 Automated eosinophil count 0.2 10*3/uL 0.0-0.3 Automated [...] Serum or plasma aspartate aminotransferase measurement (enzymatic activity/volume) 20 U/L 5-34 Serum or plasma alanine aminotransferase measurement (enzymatic activity/volume) 38 U/L 0-55 Serum or plasma protein measurement (mass/volume) 7.0 g/dL 6.4-8.2 Serum or plasma albumin measurement (mass/volume) 3.6 g/dL 3.2-4.5 Serum or plasma C reactive protein measurement (mass/volume) - 06/18/17 19:30 Serum or plasma C reactive protein measurement (mass/volume) 1.28 mg/dL 0.00-0.50 Complete blood count (CBC) with automated [...] Automated erythrocyte mean corpuscular hemoglobin concentration measurement (mass/volume) 33 g/dL 32-36 Automated erythrocyte distribution width ratio 15.1 % 10.0- 14.5 Automated blood platelet count (count/volume) 290 10*3/uL [...] Blood monocytes automated count (number/volume) 0.5 10*3 0.0- 1.0 Automated eosinophil count 0.3 10*3/uL 0.0-0.3 Automated [...] Serum or plasma aspartate aminotransferase measurement (enzymatic activity/volume) 29 U/L 5-34 Serum or plasma alanine aminotransferase measurement (enzymatic activity/volume) 21 U/L 0-55 Serum or plasma protein measurement (mass/volume) 7.9 g/dL 6.4-8.2 Serum or plasma albumin measurement (mass/volume) 3.9 g/dL 3.2-4.5 Magnesium - 02/03/18 22:55 Magnesium 2.6 mg/dL 1.8-2.4 Serum or plasma troponin i.cardiac measurement (mass/volume) - 02/03/18 22:55 Serum or plasma troponin i.cardiac measurement (mass/volume) < ng/mL <0.30 Myoglobin, serum - 02/03/18 22:55 Myoglobin, serum 33.4 ng/mL 10.0-92.0 Complete urinalysis with reflex to culture - 02/03/18 23:10 Urine color determination YELLOW NRG Urine clarity determination CLEAR NRG Urine pH measurement by test strip 6 5-9 Specific gravity of urine by test strip 1.010 1.016-1.022 Urine protein assay by test strip, semi-quantitative [...] sediment leukocyte count by microscopy (number/high power field) [HPF] NRG Bacteria detection in urine sediment [...] or plasma troponin i.cardiac measurement (mass/volume) < ng/mL <0.30 Complete blood count (CBC) with automated [...] Automated erythrocyte mean corpuscular hemoglobin concentration measurement (mass/volume) 33 g/dL 32-36 Automated erythrocyte distribution width ratio 14.2 % 10.0- 14.5 Automated blood platelet count (count/volume) 322 10*3/uL [...] Blood monocytes automated count (number/volume) 0.5 10*3 0.0- 1.0 Automated eosinophil count 0.2 10*3/uL 0.0-0.3 Automated blood basophil count (count/volume) 0.0 10*3/uL 0.0-0.1 Fibrin D-dimer FEU measurement in platelet poor plasma (mass/volume) - 02/20/18 20:50 Fibrin D-dimer FEU measurement in platelet [...] Serum or plasma aspartate aminotransferase measurement (enzymatic activity/volume) 16 U/L 5-34 Serum or plasma alanine aminotransferase measurement (enzymatic activity/volume) 18 U/L 0-55 Serum or plasma protein measurement (mass/volume) 7.5 g/dL 6.4-8.2 Serum or plasma albumin measurement (mass/volume) 4.1 g/dL 3.2-4.5 Magnesium - 02/20/18 20:50 Magnesium 2.1 mg/dL 1.8-2.4 Serum or plasma troponin i.cardiac measurement (mass/volume) - 02/20/18 20:50 Serum or plasma troponin i.cardiac measurement (mass/volume) 0.36 ng/mL <0.30 Serum or plasma C reactive protein measurement (mass/volume) - 02/20/18 20:50 Serum or plasma C reactive protein measurement (mass/volume) 4.32 mg/dL 0.00-0.50 Complete urinalysis with reflex to culture - 02/20/18 21:23 Urine color determination YELLOW NRG Urine clarity determination CLEAR NRG Urine pH measurement by test strip 7 5-9 Specific gravity of urine by test strip 1.005 1.016-1.022 Urine protein assay by test strip, semi-quantitative [...] sediment leukocyte count by microscopy (number/high power field) NONE NRG Bacteria detection in urine sediment [...] Automated erythrocyte mean corpuscular hemoglobin concentration measurement (mass/volume) 33 g/dL 32-36 Automated erythrocyte distribution width ratio 14.8 % 10.0- 14.5 Automated blood platelet count (count/volume) 290 10*3/uL [...] Blood monocytes automated count (number/volume) 0.5 10*3 0.0- 1.0 Automated eosinophil count 0.1 10*3/uL 0.0-0.3 Automated [...] Serum or plasma aspartate aminotransferase measurement (enzymatic activity/volume) 15 U/L 5-34 Serum or plasma alanine aminotransferase measurement (enzymatic activity/volume) 15 U/L 0-55 Serum or plasma protein measurement (mass/volume) 7.2 g/dL 6.4-8.2 Serum or plasma albumin measurement (mass/volume) 3.8 g/dL 3.2-4.5 Serum or plasma troponin i.cardiac measurement (mass/volume) - 02/21/18 05:10 Serum or plasma troponin i.cardiac measurement (mass/volume) 0.36 ng/mL <0.30 Myoglobin, serum - 02/21/18 05:10 Myoglobin, serum 55.9 ng/mL 10.0-92.0 Lipid 1996 panel - 02/21/18 05:10 Serum or plasma triglyceride measurement (mass/volume) 57 mg/dL <150 Serum or plasma cholesterol measurement (mass/volume) 186 mg/dL < 200 Serum or plasma cholesterol in HDL measurement (mass/volume) 63 mg/dL 40-60 Cholesterol in LDL [mass/volume] in serum or plasma by direct assay 103 mg/dL 1-129 Serum or plasma cholesterol in VLDL measurement (mass/volume) 11 mg/dL 5-40 Serum or plasma lithium measurement (moles/volume) [...] Automated erythrocyte mean corpuscular hemoglobin concentration measurement (mass/volume) 33 g/dL 32-36 Automated erythrocyte distribution width ratio 14.7 % 10.0- 14.5 Automated blood platelet count (count/volume) 312 10*3/uL [...] Blood monocytes automated count (number/volume) 0.4 10*3 0.0- 1.0 Automated eosinophil count 0.3 10*3/uL 0.0-0.3 Automated [...] Automated erythrocyte mean corpuscular hemoglobin concentration measurement (mass/volume) 34 g/dL 32-36 Automated erythrocyte distribution width ratio 15.1 % 10.0- 14.5 Automated blood platelet count (count/volume) 345 10*3/uL 130-400 Automated blood platelet mean volume measurement 10.3 [[facility]] 7.4-10.4 Automated blood neutrophils/100 leukocytes 87 % 42-75 Automated blood lymphocytes/100 leukocytes 7 % 12-44 Blood monocytes/100 leukocytes 5 % 0-12 Automated blood eosinophils/100 leukocytes 1 % 0-10 Automated blood basophils/100 leukocytes 0 % 0-10 Blood neutrophils automated count (number/volume) 10.4 10*3 1.8-7.8 Blood lymphocytes automated count (number/volume) 0.8 10*3 1.0-4.0 Blood monocytes automated count (number/volume) 0.6 10*3 0.0- 1.0 Automated eosinophil count 0.1 10*3/uL 0.0-0.3 Automated [...] NRG Blood erythrocyte morphology finding identification [facility] Comprehensive metabolic panel - 05/14/18 14:49 Serum [...] Serum or plasma aspartate aminotransferase measurement (enzymatic activity/volume) 35 U/L 5-34 Serum or plasma alanine aminotransferase measurement (enzymatic activity/volume) 28 U/L 0-55 Serum or plasma protein [...] gravity of urine by test strip 1.020 1.016-1.022 Urine protein assay by test strip, semi-quantitative [...] sediment leukocyte count by microscopy (number/high power field) [HPF] NRG Bacteria detection in urine sediment [...] blood base excess by calculation -4.3 mmol/L -2.5-2.5 Arterial blood oxygen saturation measurement 93 % 94-100 * Inhaled oxygen flow rate 5L NRG Arterial blood pH measurement with patient temperature correction 7.27 7.37-7.43 Arterial blood carbon dioxide, total measurement (moles/volume) 23.0 mmol/L 21.0-31.0 Body site RT RAD NRG Assessment of wrist artery patency prior to arterial puncture YES-POS NRG Setting of ventilation mode NO NRG [...] Automated erythrocyte mean corpuscular hemoglobin concentration measurement (mass/volume) 35 g/dL 32-36 Automated erythrocyte distribution width ratio 14.8 % 10.0- 14.5 Automated blood platelet count (count/volume) 200 10*3/uL [...] Blood monocytes automated count (number/volume) 0.5 10*3 0.0- 1.0 Automated eosinophil count 0.0 10*3/uL 0.0-0.3 Automated [...] calculation of estimated glomerular filtration rate 12 NR Serum or plasma glucose measurement (mass/volume) 106 mg/dL 70-105 Serum or plasma calcium measurement (mass/volume) 8.1 mg/dL 8.5-10.1 Serum or plasma total bilirubin measurement (mass/volume) 0.3 mg/dL 0.1-1.0 Serum or plasma alkaline phosphatase measurement (enzymatic activity/volume) 87 U/L 40-136 Serum or plasma aspartate aminotransferase measurement (enzymatic activity/volume) 33 U/L 5-34 Serum or plasma alanine aminotransferase measurement (enzymatic activity/volume) 27 U/L 0-55 Serum or plasma protein measurement (mass/volume) 6.7 g/dL 6.4-8.2 Serum or plasma albumin measurement (mass/volume) 3.8 g/dL 3.2-4.5 Magnesium - 05/14/18 20:50 Magnesium 2.3 mg/dL 1.8-2.4 Blood manual differential performed detection - 05/14/18 20:50 Blood monocytes/100 leukocytes 4 % [facility] Manual blood segmented neutrophils/100 leukocytes 89 % NR Manual blood lymphocytes/100 leukocytes 7 % [facility] Blood lactic acid measurement (moles/volume) - 05/14/18 23:55 Blood lactic acid measurement (moles/volume) 0.97 mmol/L 0.50- 2.00 Complete blood count (CBC) with automated white [...] Automated erythrocyte mean corpuscular hemoglobin concentration measurement (mass/volume) 34 g/dL 32-36 Automated erythrocyte distribution width ratio 14.9 % 10.0- 14.5 Automated blood platelet count (count/volume) 277 10*3/uL [...] Blood monocytes automated count (number/volume) 0.4 10*3 0.0- 1.0 Automated eosinophil count 0.1 10*3/uL 0.0-0.3 Automated [...] blood base excess by calculation -7.2 mmol/L -2.5-2.5 Arterial blood oxygen saturation measurement 98 % [...] resistant Staphylococcus aureus (MRSA) screening culture - 08/03/18 08:44 MRSA SCREEN RESULT MRSA ISOLATED NRG Comprehensive metabolic panel - 08/20/18 11:00 Serum or plasma sodium measurement (moles/volume) 137 mmol/L 135-145 Serum or plasma potassium measurement (moles/volume) 5.6 mmol/L 3.6-5.0 Serum or plasma chloride measurement (moles/volume) 106 mmol/L 98-107 Carbon dioxide 19 mmol/L 21-32 Serum or plasma anion gap determination (moles/volume) 12 mmol/L 5-14 Serum or plasma urea nitrogen measurement (mass/volume) 54 mg/dL 7-18 Serum or plasma creatinine measurement (mass/volume) 1.44 mg/dL 0.60-1.30 Serum or plasma urea nitrogen/creatinine mass ratio 38 NRG Serum or plasma creatinine measurement with calculation of estimated glomerular filtration rate 38 NRG Serum or plasma glucose measurement (mass/volume) 98 mg/dL 70-105 Serum or plasma calcium measurement (mass/volume) 9.4 mg/dL 8.5-10.1 Serum or plasma total bilirubin measurement (mass/volume) 0.1 mg/dL 0.1-1.0 Serum or plasma alkaline phosphatase measurement (enzymatic activity/volume) 78 U/L 40-136 Serum or plasma aspartate aminotransferase measurement (enzymatic activity/volume) 15 U/L 5-34 Serum or plasma alanine aminotransferase measurement (enzymatic activity/volume) 23 U/L 0-55 Serum or plasma protein measurement (mass/volume) 7.7 g/dL 6.4-8.2 Serum or plasma albumin measurement (mass/volume) 4.1 g/dL 3.2-4.5 CALCIUM CORRECTED 9.3 mg/dL 8.5-10.1 LIPID PANEL - 09/04/18 11:07 CHOLESTEROL, TOTAL 221 mg/dL <200 HDL CHOLESTEROL 62 mg/dL >50 TRIGLYCERIDES 208 mg/dL <150 LDL-CHOLESTEROL 127 mg/dL (calc) NRG CHOL/HDLC RATIO 3.6 (calc) <5.0 NON HDL CHOLESTEROL 159 mg/dL (calc) <130 Complete blood count (CBC) with automated white blood cell (WBC) differential - 09/10/18 20:30 Blood leukocytes automated count (number/volume) 9.5 10*3/uL 4.3-11.0 Blood erythrocytes automated count (number/volume) 3.86 10*6/uL 4.35-5.85 Venous blood hemoglobin measurement (mass/volume) 11.6 g/dL 11.5-16.0 Blood hematocrit (volume fraction) 36 % 35-52 Automated erythrocyte mean corpuscular volume 94 [foz_us] 80-99 Automated erythrocyte mean corpuscular hemoglobin (mass per erythrocyte) 30 pg 25-34 Automated erythrocyte mean corpuscular hemoglobin concentration measurement (mass/volume) 32 g/dL 32-36 Automated erythrocyte distribution width ratio 14.3 % 10.0- 14.5 Automated blood platelet count (count/volume) 254 10*3/uL 130-400 Automated blood platelet mean volume measurement 10.5 [foz_us] 7.4-10.4 Automated blood neutrophils/100 leukocytes 75 % 42-75 Automated blood lymphocytes/100 leukocytes 16 % 12-44 Blood monocytes/100 leukocytes 7 % 0-12 Automated blood eosinophils/100 leukocytes 2 % 0-10 Automated blood basophils/100 leukocytes 0 % 0-10 Blood neutrophils automated count (number/volume) 7.1 10*3 1.8-7.8 Blood lymphocytes automated count (number/volume) 1.5 10*3 1.0-4.0 Blood monocytes automated count (number/volume) 0.7 10*3 0.0- 1.0 Automated eosinophil count 0.2 10*3/uL 0.0-0.3 Automated blood basophil count (count/volume) 0.0 10*3/uL 0.0-0.1 Comprehensive metabolic panel - 09/10/18 20:30 Serum or plasma sodium measurement (moles/volume) 139 mmol/L 135-145 Serum or plasma potassium measurement (moles/volume) 4.1 mmol/L 3.6-5.0 Serum or plasma chloride measurement (moles/volume) 110 mmol/L 98-107 Carbon dioxide 19 mmol/L 21-32 Serum or plasma anion gap determination (moles/volume) 10 mmol/L 5-14 Serum or plasma urea nitrogen measurement (mass/volume) 30 mg/dL 7-18 Serum or plasma creatinine measurement (mass/volume) 1.35 mg/dL 0.60-1.30 Serum or plasma urea nitrogen/creatinine mass ratio 22 NRG Serum or plasma creatinine measurement with calculation of estimated glomerular filtration rate 40 NRG Serum or plasma glucose measurement (mass/volume) 138 mg/dL 70-105 Serum or plasma calcium measurement (mass/volume) 9.0 mg/dL 8.5-10.1 Serum or plasma total bilirubin measurement (mass/volume) 0.4 mg/dL 0.1-1.0 Serum or plasma alkaline phosphatase measurement (enzymatic activity/volume) 83 U/L 40-136 Serum or plasma aspartate aminotransferase measurement (enzymatic activity/volume) 17 U/L 5-34 Serum or plasma alanine aminotransferase measurement (enzymatic activity/volume) 27 U/L 0-55 Serum or plasma protein measurement (mass/volume) 7.4 g/dL 6.4-8.2 Serum or plasma albumin measurement (mass/volume) 3.9 g/dL 3.2-4.5 CALCIUM CORRECTED 9.1 mg/dL 8.5-10.1 Complete urinalysis with reflex to culture - 09/10/18 20:42 Urine color determination YELLOW NRG Urine clarity determination CLEAR NRG Urine pH measurement by test strip 6.5 5-9 Specific gravity of urine by test strip 1.010 1.016-1.022 Urine protein assay by test strip, semi-quantitative [...] sediment leukocyte count by microscopy (number/high power field) RARE NRG Bacteria detection in urine sediment by light microscopy NONE NRG Squamous epithelial cells detection in urine sediment by light microscopy 0-2 NRG Crystals detection in urine sediment by light microscopy NONE NRG Casts detection in urine sediment by light microscopy NONE NRG Mucus detection in urine sediment by light microscopy NEGATIVE NRG Complete urinalysis with reflex to culture NO NRG CULTURE, URINE - 11/30/18 09:58 CULTURE, URINE, ROUTINE SEE NOTE NRG Encounters ACCT No. Visit Date/Time Discharge Status Pt. Type Provider Facility Loc./Unit Complaint [id number] 09/13/2014 14:47:00 ACT Unknown [id number] 02/03/2015 04:27:10 ACT Document Registration [id number] 02/19/2018 14:28:36 02/19/2018 23:59:59 CLS Outpatient ChambersVirgie grier Elliot [id number] 04/29/2017 09:08:00 Document Registration [id number] 09/10/2018 20:19:00 09/10/2018 21:49:00 DIS Emergency NEERAJ VILLA APRN [facility] ER SEIZURE [id number] 08/27/2018 14:28:00 08/27/2018 23:59:59 CLS Preadmit Paolo PERKINS MD [facility] SLEEP LAUREN [id number] 08/20/2018 10:18:00 08/20/2018 23:59:59 CLS Outpatient Paolo PERKINS MD [facility] CATH MODERATE TO SEVERE MITRAL REGURGITATION [id number] 08/03/2018 06:30:00 08/03/2018 23:59:59 CLS Outpatient Paolo PERKINS MD [facility] CATH SEVERE MITRAL REGURGITATION BY PRIOR ECHO [id number] 07/24/2018 13:33:00 07/24/2018 23:59:59 CLS Outpatient Paolo PERKINS MD [facility] CARD I34.0 MITRAL REGURGITATION [id number] 07/17/2018 07:52:00 07/17/2018 23:59:59 CLS Outpatient Paolo PERKINS MD [facility] LAB N18.9 [id number] 02/20/2018 22:00:00 02/24/2018 18:50:00 DIS Inpatient GAVI DEGROOT DO [facility] 4TH ELEVATED TROPONIN,ELEVATED D-DIMER,SOA [id number] 02/03/2018 22:20:00 02/04/2018 01:26:00 DIS Emergency MICHAEL BURRELL MD [facility] ER CP/SEIZURE [id number] 06/18/2017 18:03:00 06/18/2017 21:14:00 DIS Emergency STAR ORTIZ [facility] ER LT LEG SORE/BRUISING [id number] 03/06/2017 09:45:00 03/06/2017 11:46:00 DIS Emergency QUIN JONES MD [facility] ER ABD PAIN [id number] 11/23/2016 14:15:00 11/23/2016 16:00:00 DIS Emergency QUIN JONES MD [facility] ER SOA/COUGH/VOMITING [id number] 08/05/2016 20:48:00 08/05/2016 22:20:00 DIS Emergency HOLA BRIGHT DO [facility] ER R LEG WOUND/PAINFUL URINATION/LOWER BACK PAIN [id number] 01/27/2016 20:37:00 01/28/2016 02:05:00 DIS Emergency HOLA BRIGHT DO [facility] ER ABD PAIN,N,V,D [id number] 01/27/2016 01:55:00 01/27/2016 05:47:00 DIS Emergency SANTHOSH LOWE MD [facility] ER L FLANK PAIN [id number] 02/02/2015 15:37:00 02/02/2015 17:07:00 DIS Emergency STAR ORTIZ [facility] ER PAIN [id number] 01/19/2015 01:46:00 01/19/2015 04:46:00 DIS Emergency SANTHOSH LOWE MD [facility] ER MERSA FLARING UP [id number] 11/27/2014 20:30:00 11/27/2014 22:29:00 DIS Emergency STAR ORTIZ [facility] ER BACK PAIN [id number] 06/07/2014 16:31:00 06/10/2014 14:12:00 DIS Inpatient GAVI DEGROOT DO [facility] ICU INTRACTABLE L HIP PAIN,UNABLE TO CARE FOR SELF [id number] 06/05/2014 13:39:00 06/05/2014 16:45:00 DIS Emergency LAZARO VALENTINE STAR L [facility] ER FALL NECK PAIN AND BACK PAIN [id number] 05/23/2014 20:00:00 05/25/2014 11:35:00 DIS Inpatient JOANN GONZALES, MATTHEW Longoria [facility] ICU CHEST PAIN,COPD EXACERBATION,ELEVATED D-DIMER [id number] 04/09/2014 13:14:00 04/09/2014 16:26:00 DIS Emergency NEERAJ VILLA APRN [facility] ER ABD PAIN [id number] 04/06/2014 10:52:00 04/08/2014 11:45:00 DIS Inpatient GAVI DEGROOT DO [facility] 4TH RESPIRATORY DISTRESS,HYPOXIA,PNEUMONIA,CHEST PAIN [id number] 03/18/2014 16:36:00 03/18/2014 18:25:00 DIS Emergency NEERAJ VILLA APRN [facility] ER SOA [id number] 02/04/2014 19:05:00 02/04/2014 23:17:00 DIS Emergency KAILA HOLA Alec [facility] ER CHEST PAIN [id number] 11/14/2013 14:21:00 11/14/2013 18:24:00 DIS Emergency NEERAJ VILLA PEN TESTER [facility] ER LOWER BACK PAIN [id number] 09/28/2013 23:45:00 09/29/2013 02:02:00 DIS Emergency CHRISSY GONZALES, SANTHOSH Castellano [facility] ER CHEST PAIN [id number] 09/15/2013 12:59:00 09/15/2013 14:32:00 DIS Emergency QUIN JONES MD [facility] ER COUGH [id number] 09/13/2013 15:15:00 09/14/2013 08:46:00 DIS Inpatient ABELARDO AMANDA MD [facility] ICU CHEST PAIN, ELEVATED TROPONIA [id number] 07/29/2013 14:25:00 07/29/2013 14:49:00 DIS Outpatient BRI VILLASEÑOR [facility] WOUNDCARE LEG ABSCESS [id number] 06/20/2013 00:03:00 06/24/2013 16:42:00 DIS Inpatient DEGROOT GAVI Michael [facility] SURGICAL MULTIPLE ABSCESSES [id number] 06/04/2013 12:49:00 06/04/2013 23:59:59 CLS Outpatient ABELARDO AMANDA MD [facility] RAD CHF [id number] 06/04/2013 10:53:00 06/04/2013 23:59:59 CLS Outpatient ABELARDO AMANDA MD [facility] CARD CHF [id number] 05/30/2013 13:54:00 05/30/2013 15:27:00 DIS Emergency CHRISSY GONZALES, SANTHOSH Castellano [facility] ER CHEST PAIN [id number] 05/10/2013 01:14:00 05/11/2013 14:24:00 DIS Inpatient NGOC CASTILLO MD [facility] ICU NSTEMI,CHEST PAIN,HYPERTENSIVE URGENCY [id number] 04/29/2013 14:28:00 04/29/2013 23:59:59 CLS Outpatient [id number] 05/15/2018 00:10:00 Document Registration [id number] 01/27/2016 05:53:00 Document Registration [id number] 12/01/2014 13:05:00 Document Registration [id number] 12/17/2012 04:30:00 Document Registration [id number] 08/03/2012 03:50:00 Document Registration [id number] 07/23/2012 17:10:00 Document Registration [id number] 05/25/2012 03:15:00 Document Registration [id number] 05/09/2012 19:20:00 Document Registration [id number] 03/28/2012 06:00:00 Document Registration [id number] 10/10/2011 13:00:00 Document Registration [id number] 07/16/2011 01:55:00 Document Registration [id number] 07/02/2011 06:44:00 Document Registration [id number] 04/12/2011 19:39:00 Document Registration [id number] 03/22/2011 02:40:00 Document Registration [id number] 03/19/2011 17:35:00 Document Registration [id number] 03/03/2011 20:58:00 Document Registration [id number] 01/21/2011 21:56:00 Document Registration [id number] 12/28/2010 15:45:00 Document Registration [id number] 11/04/2010 20:43:00 Document Registration [id number] 02/05/2010 04:25:00 Document Registration [id number] 09/18/2016 08:45:00 Document Registration [id number] 01/31/2015 15:03:00 01/31/2015 23:59:59 CLS Outpatient KRANTHI PRECIADO MD [id number] 11/28/2014 09:37:00 11/28/2014 23:59:59 CLS Outpatient ANISA MOLINA TRACEE Nona [id number] 08/05/2014 14:32:00 08/05/2014 23:59:59 CLS Outpatient ANISA MOLINA TRACEE Nona [id number] 07/04/2014 12:54:00 07/04/2014 23:59:59 CLS Outpatient DEGROOT AGUSTÍN LANGEA Alec [id number] 05/02/2014 15:01:00 05/02/2014 23:59:59 CLS Outpatient GAVI DEGROOT DO [id number] 12/10/2013 14:53:00 12/10/2013 23:59:59 CLS Outpatient ANISA MOLINA TRACEE Nona [id number] 09/29/2013 15:37:00 09/29/2013 23:59:59 CLS Outpatient TRACEE LANGE APRN [id number] 09/18/2013 12:00:00 09/18/2013 23:59:59 CLS Outpatient TRACEE LANGE APRN [id number] 07/15/2013 14:04:00 07/15/2013 23:59:59 CLS Outpatient KRANTHI PRECIADO MD [id number] 05/31/2013 09:17:00 05/31/2013 23:59:59 CLS Outpatient KRANTHI PRECIADO MD [id number] 12/09/2012 17:16:00 12/09/2012 23:59:59 CLS Outpatient TRACEE LANGE APRN [id number] 10/28/2012 12:04:00 10/28/2012 23:59:59 CLS Outpatient TRACEE LANGE APRN [id number] 10/19/2012 16:04:00 10/19/2012 23:59:59 CLS Outpatient [id number] 09/16/2012 15:22:00 09/16/2012 23:59:59 CLS Outpatient [id number] 08/14/2012 10:30:00 08/14/2012 23:59:59 CLS Outpatient KRANTHI PRECIADO MD [id number] 05/21/2013 10:29:00 Document Registration [id number] 03/02/2013 15:46:00 Document Registration [id number] 11/30/2018 15:40:00 11/30/2018 23:59:59 CLS Outpatient TRACEE LANGE APRN [facility] [id number] 11/30/2018 15:40:00 Document Registration [id number] 09/04/2018 11:00:00 Document Registration
[2019-05-04 09:24] LABS: PROTHROMBIN TIME PATIENT 13.4 SEC (12.2-14.7)
[2019-05-04 09:25] LABS: ALBUMIN 3.8 GM/DL (3.2-4.5); BILIRUBIN,TOTAL 0.3 MG/DL (0.1-1.0); CALCIUM 9.1 MG/DL (8.5-10.1); CREATININE SERUM 1.57 MG/DL (0.60-1.30); MAGNESIUM 1.6 MG/DL (1.8-2.4); POTASSIUM 5.1 MMOL/L (3.6-5.0); TOTAL PROTEIN 7.8 GM/DL (6.4-8.2)
--- NOTE | 2019-05-04 09:42 | ED Chest Pain ---
General Chief Complaint: Chest Pain Stated Complaint: CHEST PAIN Nursing Triage Note: AMB TO ROOM WITH WALKER PATIENT REPORTS THAT SHE HAS HAD CHEST PAIN SINCE 729 TODAY. ABRASION AREA WITH REDNESS NOTED ON L LOWER LEG. Nursing Sepsis Screen: No Definite Risk Source: patient Exam Limitations: no limitations History of Present Illness Date Seen by Provider: May 04, 2019 Time Seen by Provider: 08:48 Initial Comments Here with report of 3 hours of upper chest pain on the left side that she reports a sharp. Also has a little shortness of breath. Fever noted on arrival and she is not sure that's from but does admit to a small wound on her left leg after they got bumped several days ago. Skill worker arrives later and states that she believes the patient has a urinary tract infection. Denies nausea or vomiting. Denies sweating. Timing/Duration: 1-3 hours Severity/Quality: moderate Location: central (left upper) Radiation: no radiation Activities at Onset: none Prior CP/Workup: cardiac cath, echocardiography Modifying Factors: worse with exercise; improves with rest ASA po CAPSULE INSPECTOR: No NTG SL CAPSULE INSPECTOR: No Associated Symptoms: No abdominal pain, No diaphoresis; fever/chills; No nausea/vomiting; shortness of breath Allergies and Home Medications Allergies Coded Allergies: nitrous oxide (Verified Allergy, Unknown, 06/08/07) Home Medications Acetaminophen 500 Mg Tablet, 1,000 MG PO Q6H PRN for PAIN-MILD, (Reported) Albuterol Sulfate 1 Puff Puff, 1 PUFF IH Q4H PRN for SHORTNESS OF BREATH, (Reported) LAST FILLED 18 Amitriptyline HCl 50 Mg Tablet, 50 MG PO DAILY, (Reported) Carvedilol 12.5 Mg Tablet, 12.5 MG PO BID, (Reported) Clonidine HCl 0.2 Mg Tablet, 0.2 MG PO TID, (Reported) LAST FILLED #90 18 Fluticasone/Salmeterol 1 Each Blst.w.dev, 1 PUFF IH BID, (Reported) LAST FILLED 09-26-17 Haloperidol 5 Mg Tablet, 5 MG PO Q4H PRN for DELIRIUM, (Reported) Hydralazine HCl 50 Mg Tablet, 50 MG PO TID, (Reported) Hydroxyzine Pamoate 25 Mg Capsule, 25 MG PO Q8H PRN for ANXIETY, (Reported) Loratadine 10 Mg Tablet, 10 MG PO HS, (Reported) Losartan Potassium 100 Mg Tablet, 100 MG PO DAILY, (Reported) LAST FILLED #30 05-22-18 Melatonin 5 Mg Tablet, 5 MG PO HS, (Reported) Metoprolol Succinate 100 Mg Tab.er.24h, 100 MG PO DAILY, (Reported) Oxcarbazepine 600 Mg Tablet, 600 MG PO BID, (Reported) Pantoprazole Sodium 40 Mg Tablet.dr, 40 MG PO DAILY, (Reported) Phenobarbital 97.2 Mg Tablet, 97.2 MG PO DAILY, (Reported) Prednisone 20 Mg Tab, 40 MG PO DAILY Prescribed by: NEERAJ VILLA on 09/10/182125 Quetiapine Fumarate 25 Mg Tablet, 75 MG PO HS, (Reported) TAKES 3 (25MG) TABLETS Spironolactone 25 Mg Tablet, 25 MG PO DAILY, (Reported) LAST FILLED #30 05-22-18 Patient Home Medication List Home Medication List Reviewed: Yes Review of Systems Review of Systems Constitutional: see HPI; No chills; fever EENTM: No Symptoms Reported Respiratory: See HPI; Denies Wheezing Cardiovascular: See HPI; Denies Lightheadedness, Denies Syncope Gastrointestinal: No Symptoms Reported Genitourinary: See HPI; Denies Burning, Denies Pain Musculoskeletal: see HPI; No back pain, No neck pain Skin: lesions (left lower extremity mid tibia anterior) Psychiatric/Neurological: No Symptoms Reported All Other Systems Reviewed Negative Unless Noted: Yes Past Jfwmgza-Uivdzy-Rnyczb Hx Past Med/Social Hx: Reviewed Nursing Past Med/Soc Hx Patient Social History Alcohol Use: Denies Use Recreational 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) Drug of Choice: HX OF IV METH USE Smoking Status: Former Smoker Type Used: Cigarettes 2nd Hand Smoke Exposure: Yes Recent Foreign Travel: No Contact w/Someone Who Travel: No Recent Infectious Disease Expo: No Recent Hopitalizations: No Immunizations Up To Date Tetanus Booster (TDap): Less than 5yrs PED Vaccines UTD: No Date of Pneumonia Vaccine: Jul 13, 2012 Date of Influenza Vaccine: Jul 28, 2018 Seasonal Allergies Seasonal Allergies: No Past Medical History Surgeries: Yes (hernia repair, T&A, hysterectomy, bladder suspension, multi to left leg, ) Abdominal, Hysterectomy, Oophorectomy Respiratory: Yes (SUPPOSED TO WEAR O2 AT HS AT 2 1/2-3L AT HS AND PRN) COPD Currently Using CPAP: No Currently Using BIPAP: No Cardiac: Yes Hypertension, Valvular Heart Disease Neurological: Yes (TBI CHILD; CVA LEFT SIDE WEAKNESS, POOR BALANCE/USES WALKER) Seizure Disorder, Stroke 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 Disorders: No Female 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 Sexually Transmitted Disease: No HIV/AIDS: No Kidney Infection, Bladder Infection, Kidney Stones, Renal Failure, UTI-Chronic Gastrointestinal: Yes (CHRONIC ABDOMINAL PAIN COMPLAINT; GASTRITIS; HEPATITIS C) Gastroesophageal Reflux Musculoskeletal: Yes Arthritis, Chronic Back Pain Endocrine: No HEENT: No Loss of Vision: Denies Hearing Impairment: Denies Cancer: No Cervical Psychosocial: Yes (SUBSTANCE ABUSE) Anxiety, Bipolar, Depression Integumentary: No Blood Disorders: Yes (ANEMIA) Adverse Reaction/Blood Tranf: No Family Medical History Reviewed Nursing Family Hx Abdominal aortic aneurysm 03 FATHER Alcoholism 03 FATHER 03 MOTHER 09 SISTER 09 SISTER Cancer 03 FATHER Cataract 03 FATHER 03 MOTHER Chest pain 03 MOTHER Family history: Diabetes mellitus 03 MOTHER Family history: Hypertension 03 MOTHER Family history: Thyroid disorder 03 MOTHER Headache 09 SISTER Heart disease 03 MOTHER History of drug abuse 03 FATHER 09 SISTER Myocardial infarction 03 MOTHER No Family History of: Liberty's disease Aphasia Cancer of colon Congenital heart disease Congestive heart failure Cystic fibrosis Dementia Dysphagia Family history: Allergy Family history: Alzheimer's disease Family history: Arthritis Family history: Asthma Family history: Breast disease Family history: Cardiovascular disease Family history: Coronary thrombosis Family history: Gastrointestinal disease Family history: Glaucoma Family history: Osteoporosis Hearing loss Hereditary disease History of - anemia History of - disorder History of - respiratory disease Human immunodeficiency virus (HIV) seropositivity Hypercholesterolemia Infertile Kidney disease Malignant neoplasm of lung Parkinson's disease Prostate cancer Psychotic disorder Seizure disorder Stroke Tuberculosis Visual impairment Diabetes Physical Exam Vital Signs Vital Signs - First Documented 05/04/19 05/04/19 08:38 10:16 Temp 100.0 Pulse 101 Resp 18 B/P (MAP) 174/109 (130) Pulse Ox 97 O2 Delivery Room Air Capillary Refill : Less Than 3 Seconds Height, Weight, BMI Height: 5'3.00" Weight: 187lbs. 0.0oz. 84.258025zp; 33.1 BMI Method:Stated General Appearance: No Apparent Distress, Chronically ill HEENT: PERRL/EOMI, Pharynx Normal Neck: Non Tender, Supple Respiratory: Lungs Clear, Normal Breath Sounds Cardiovascular: No Murmur, Tachycardia Gastrointestinal: Non Tender, Soft Extremity: Normal Inspection, Normal Range of Motion Neurologic/Psychiatric: Alert, Oriented x3 Skin: Warm/Dry, Other (2 x 2 centimeter wound to the left anterior mid tibial region where she apparently bumped her previously. No fluctuant area to indicate abscess.) Focused Exam Lactate Level 05/04/19 08:48: Lactic Acid Level 0.98 Lactic Acid Level Laboratory Tests Test 05/04/19 08:48 Lactic Acid Level 0.98 MMOL/L (0.50-2.00) Progress/Results/Core Measures Results/Orders Lab Results Laboratory Tests Test 05/04/19 08:48 05/04/19 10:54 05/04/19 11:04 Range/Units White Blood Count 5.2 4.3-11.0 10^3/uL Red Blood Count 4.42 4.35-5.85 10^6/uL Hemoglobin 12.2 11.5-16.0 G/DL Hematocrit 38 35-52 % Mean Corpuscular Volume 87 80-99 FL Mean Corpuscular Hemoglobin 28 25-34 PG Mean Corpuscular Hemoglobin Concent 32 32-36 G/DL Red Cell Distribution Width 15.9 H 10.0-14.5 % Platelet Count 358 130-400 10^3/uL Mean Platelet Volume 9.7 7.4-10.4 FL Neutrophils (%) (Auto) 39 L 42-75 % Lymphocytes (%) (Auto) 43 12-44 % Monocytes (%) (Auto) 16 H 0-12 % Eosinophils (%) (Auto) 1 0-10 % Basophils (%) (Auto) 1 0-10 % Neutrophils # (Auto) 2.0 1.8-7.8 X 10^3 Lymphocytes # (Auto) 2.3 1.0-4.0 X 10^3 Monocytes # (Auto) 0.8 0.0-1.0 X 10^3 Eosinophils # (Auto) 0.1 0.0-0.3 10^3/uL Basophils # (Auto) 0.0 0.0-0.1 10^3/uL Prothrombin Time 13.4 12.2-14.7 SEC INR Comment 1.0 0.8-1.4 Activated Partial Thromboplast Time 33 24-35 SEC D-Dimer 1.85 H 0.00-0.49 UG/ML Sodium Level 137 135-145 MMOL/L Potassium Level 5.1 H 3.6-5.0 MMOL/L Chloride Level 106 98-107 MMOL/L Carbon Dioxide Level 21 21-32 MMOL/L Anion Gap 10 5-14 MMOL/L Blood Urea Nitrogen 37 H 7-18 MG/DL Creatinine 1.57 H 0.60-1.30 MG/DL Estimat Glomerular Filtration Rate 34 BUN/Creatinine Ratio 24 Glucose Level 105 70-105 MG/DL Lactic Acid Level 0.98 0.50-2.00 MMOL/L Calcium Level 9.1 8.5-10.1 MG/DL Corrected Calcium 9.3 8.5-10.1 MG/DL Magnesium Level 1.6 L 1.8-2.4 MG/DL Total Bilirubin 0.3 0.1-1.0 MG/DL Aspartate Amino Transf (AST/SGOT) 13 5-34 U/L Alanine Aminotransferase (ALT/SGPT) 25 0-55 U/L Alkaline Phosphatase 90 40-136 U/L Myoglobin 31.4 10.0-92.0 NG/ML Troponin I 0.093 H 0.080 H <0.028 NG/ML C-Reactive Protein High Sensitivity 1.79 H 0.00-0.50 MG/DL Total Protein 7.8 6.4-8.2 GM/DL Albumin 3.8 3.2-4.5 GM/DL Urine Color YELLOW Urine Clarity SLIGHTLY CLOUDY Urine pH 6 5-9 Urine Specific Cocoa 1.015 L 1.016-1.022 Urine Protein 2+ H NEGATIVE Urine Glucose (UA) 1+ H NEGATIVE Urine Ketones NEGATIVE NEGATIVE Urine Nitrite NEGATIVE NEGATIVE Urine Bilirubin NEGATIVE NEGATIVE Urine Urobilinogen NORMAL NORMAL MG/DL Urine Leukocyte Esterase NEGATIVE NEGATIVE Urine RBC (Auto) NEGATIVE NEGATIVE Urine RBC NONE /HPF Urine WBC 0-2 /HPF Urine Squamous Epithelial Cells 5-10 /HPF Urine Crystals NONE /LPF Urine Bacteria TRACE /HPF Urine Casts PRESENT /LPF Urine Granular Casts 5-10 H /LPF Urine Mucus NEGATIVE /LPF Urine Culture Indicated NO My Orders Orders - QUIN JONES MD Nitroglycerin 0.4 Mg Btl 25's (Nitrostat (05/04/19 08:54) Cbc With Automated Diff (05/04/19 09:00) Magnesium (05/04/19 09:00) Chest 1 View, Ap/Pa Only (05/04/19 09:00) Ekg Tracing (05/04/19 09:00) Cardiac Profile 1 (05/04/19 09:) Comprehensive Metabolic Panel (05/04/19 09:00) Myoglobin Serum (05/04/19 09:00) Protime With Inr (05/04/19 09:00) Partial Thromboplastin Time (05/04/19 09:00) O2 (05/04/19 09:00) Monitor-Rhythm Ecg Trace Only (05/04/19 09:00) Lipid Panel (05/05/19 06:00) Ed Iv/Invasive Line Start (05/04/19 09:00) Fibrin Degradation Products (05/04/19 09:00) Nitroglycerin 0.4 Mg Btl 25's (Nitrostat (05/04/19 09:00) Aspirin Chewable Tablet (Baby Aspirin Ch (05/04/19 09:00) Lactic Acid Analyzer (05/04/19 09:00) Blood Culture (05/04/19 09:00) Aspirin Chewable Tablet (Baby Aspirin Ch (05/04/19 08:55) Hs C Reactive Protein (05/04/19 08:48) Ua Culture If Indicated (05/04/19 09:17) Ed Iv/Invasive Line Start (05/04/19 10:19) Ns Iv 500 Ml (Sodium Chloride 0.9%) (05/04/19 10:19) Troponin I (05/04/19 10:44) Ceftriaxone For Iv Use (Rocephin For I (05/04/19 12:00) Medications Given in ED Current Medications Medications Dose Ordered Sig/Tad Route Start Time Stop Time Status Last Admin Dose Admin Aspirin 324 mg ONCE ONCE PO 05/04/19 09:00 05/04/19 09:02 DC 05/04/19 09:04 324 MG Nitroglycerin 0.4 mg UD PRN SL 05/04/19 09:00 05/04/19 09:26 DC 05/04/19 09:26 0.4 MG Sodium Chloride 500 ml @ 0 mls/hr Q0M ONCE IV 05/04/19 10:19 05/04/19 10:20 DC 05/04/19 10:21 500 MLS/HR Vital Signs/I&O 05/04/19 05/04/19 05/04/19 08:38 10:16 11:16 Temp 100.0 Pulse 101 96 86 Resp 18 18 18 B/P (MAP) 174/109 (130) 171/98 (122) 179/86 (117) Pulse Ox 97 97 96 O2 Delivery Room Air Room Air Blood Pressure Mean: 130 Progress Progress Note : Progress Note Seen and evaluated. IV, labs, EKG and chest x-ray ordered. ASA 324 mg by mouth and nitroglycerin sublingual when necessary ordered. Monitor patient. D-dimer is elevated. Normal saline 500 mL bolus. We will try for CT angiogram if labs are normal. Monitor patient. 1208: I have reviewed her labs. D-dimer is historically always elevated. She has never had positive V/Q or CTA scans with this and I believe is likely related to both the injury on her leg and her chronic renal dysfunction. Troponin has trended down. She did have a heart catheter in February of last year that did not show any significant blockage. I did discuss the case with Dr. David and we both agree that this could likely be followed in clinic but she would like me to discuss with dobie worker. I did discuss it with her dobie worker, Dr. Jenkins. He agrees that there is not cardiac related concerns currently. I will give Rocephin 1 g IV and continue doxycycline for the leg wound. She will follow up in clinic tomorrow. Discharged home with return precautions. Patient verbalize understanding instructions and agreement with plan. Initial ECG Impression Date: May 04, 2019 Initial ECG Impression Time: 08:42 Initial ECG Rate: 97 Initial ECG Rhythm: Normal Sinus Initial ECG Comparisson: Unchanged Comment Sinus rhythm with left ventricular hypertrophy, normal axis. No evidence of ST elevation [place], similar to previous of 08/03/18. Interpreted by me. Diagnostic Imaging Diagonstic Imaging: Xray Plain Films/CT/US/NM/MRI: chest Comments [facility] [place], [place] NAME: KEREN [facility] REC#: [id number] PT STATUS: REG ER : 1960 PHYSICIAN: QUIN JONES MD ADMIT DATE: 05/04/19/ER Draft Date of Exam:05/04/19 CHEST 1 VIEW, AP/PA ONLY Clinical indication: Patient with chest pain. Exam: Portable chest x-ray upright view. Comparison: Chest x-ray dated 09/10/2018. Findings: There is interval improved aeration of the left lower lung field with resolution of previously seen lung infiltrate. Lungs are now clear. There is no pleural effusion or pneumothorax. Pulmonary vasculature and cardiac silhouette is within normal limits. There are hypertrophic spurs involving thoracic spine again seen. Old healed fracture of the right clavicle again noted. Impression: 1: There is no radiographic evidence of acute cardiopulmonary process. 2: Interval resolution of previously seen left lower lung field infiltrate. Dictated on workstation # [id number] Dict: 05/04/19 0945 Trans: 05/04/19 0950 [facility] [id number] Interpreted by: NINA JENNINGS MD Electronically signed by: Departure Impression Primary Impression: Chest pain Qualified Codes: R07.9 - Chest pain, unspecified Additional Impression: Leg wound, left Qualified Codes: S81.802A - Unspecified open wound, left lower leg, initial encounter Disposition: 01 HOME, SELF-CARE Condition: Improved Departure-Patient Inst. Decision time for Depature: 12:11 Referrals: [facility] (PCP/Family) Primary Care Physician Patient Instructions: Cellulitis (Skin Infection), Adult (DC), Chest Pain (DC) Add. Discharge Instructions: All discharge instructions reviewed with patient and/or family. Voiced understanding. Take medications as directed. Follow up with [facility] tomorrow as scheduled with Nabil Amos at 10:40 AM on 05/05/19. You may use antibiotic ointment and dressing over wound on her leg. Return for worse pain, fever, vomiting, weakness, breathing problems or other concerns as needed. Scripts Doxycycline Hyclate (Doxycycline Hyclate) 100 Mg Tablet 100 MG PO BID, #20 TAB 0 Refills Prov: QUIN JONES MD 05/04/19 Copy Copies To 1: MATTHEW DAVID MD, TIMOTHY D MD May 04, 2019 09:41
--- NOTE | 2019-05-04 09:51 | Diagnostic Imaging Report ---
Clinical indication: Patient with chest pain. Exam: Portable chest x-ray upright view. Comparison: Chest x-ray dated 09/10/2018. Findings: There is interval improved aeration of the left lower lung field with resolution of previously seen lung infiltrate. Lungs are now clear. There is no pleural effusion or pneumothorax. Pulmonary vasculature and cardiac silhouette is within normal limits. There are hypertrophic spurs involving thoracic spine again seen. Old healed fracture of the right clavicle again noted. Impression: 1: There is no radiographic evidence of acute cardiopulmonary process. 2: Interval resolution of previously seen left lower lung field infiltrate. Dictated by: Dictated on workstation # [id number]
--- NOTE | 2019-05-04 10:04 | NUR ---
TO ROOM TO ASK PATIENT FOR UA REPORTS CAN'T GO AT THIS TIME.
[2019-05-04 10:16] VITALS: BP 171/98
[2019-05-04] MEDS ORDERED: NS IV 500 ML 500 ML IV ONE (10:19)
[2019-05-04 11:16] VITALS: BP 179/86
[2019-05-04 11:26] LABS: BACTERIA,URINE TRACE /HPF; BILIRUBIN,URINE NEGATIVE (NEGATIVE); CLARITY,URINE SLIGHTLY CLOUDY; COLOR,URINE YELLOW; GLUCOSE, URINE (UA) 1+ (NEGATIVE); KETONES,URINE NEGATIVE (NEGATIVE); LEUKOCYTE ESTERASE ,URINE NEGATIVE (NEGATIVE); NITRITE,URINE NEGATIVE (NEGATIVE); PH,URINE 6 (5-9); PROTEIN,URINE 2+ (NEGATIVE); UROBILINOGEN,URINE NORMAL (NORMAL); WBC,URINE 0-2 /HPF
[2019-05-04] MEDS ORDERED: cefTRIAXone FOR IV USE 1,000 MG in WATER (STERILE) FOR INJECTION 10 ML IV ONE (12:00)
[2019-05-04] MEDS ORDERED: DOXY100T2 PO (12:14)
== END 2019-05-04 12:59 | disposition home or self-care (01) ==
LOC: EDUNIT# 08:38 → ER 08:39
DX: S81.802A Unspecified open wound, left lower leg, initial encounter (principal); R07.9 Chest pain, unspecified; J44.9 Chronic obstructive pulmonary disease, unspecified; I10 Essential (primary) hypertension; G40.909 Epilepsy, unspecified, not intractable, without status epilepticus; K21.9 Gastro-esophageal reflux disease without esophagitis; F31.9 Bipolar disorder, unspecified; F41.9 Anxiety disorder, unspecified; Z87.442 Personal history of urinary calculi; Z87.440 Personal history of urinary (tract) infections; Z86.73 Personal history of transient ischemic attack (TIA), and cerebral infarction without residual deficits; Z99.81 Dependence on supplemental oxygen; Z95.9 Presence of cardiac and vascular implant and graft, unspecified; Z88.8 Allergy status to other drugs, medicaments and biological substances; Z79.51 Long term (current) use of inhaled steroids; Z87.891 Personal history of nicotine dependence; Z98.890 Other specified postprocedural states; Z90.710 Acquired absence of both cervix and uterus; Z82.49 Family history of ischemic heart disease and other diseases of the circulatory system; W22.8XXA Striking against or struck by other objects, initial encounter
CPT/HCPCS: 36415; 71045; 80053; 81000; 83605; 83735; 83874; 84484; 85025; 85379; 85610; 85730; 86141; 87040; 93005; 93041; 96361; 96365

== ENCOUNTER 2019-07-02 10:45 | Inpatient (IN) | payer MEDICAID ==
[2019-07-02] VITALS (11 sets, daily range): BP systolic 91–127; BP diastolic 63–105
[~2019-07-02] VITALS: Ht 167 cm; Wt 70.3 kg
[2019-07-02] MEDS ORDERED: ETOMIDATE IV SOLN 20 MG/10 ML VIAL IV ONE (10:50)
[2019-07-02] MEDS ORDERED: ROCURONIUM 10 MG/ML 5 ML SYRINGE IV ONE (10:50)
[2019-07-02] MEDS ORDERED: NS IV 1000 ML 1,000 ML IV SCH ×2 (11:00→12:00)
[2019-07-02] MEDS ORDERED: fentaNYL INJECTION 100 MCG/2 ML AMP IVP ONE (11:00)
[2019-07-02 11:11] LABS: BILIRUBIN,URINE NEGATIVE (NEGATIVE); CLARITY,URINE SLIGHTLY CLOUDY; COLOR,URINE YELLOW; GLUCOSE, URINE (UA) NEGATIVE (NEGATIVE); KETONES,URINE NEGATIVE (NEGATIVE); LEUKOCYTE ESTERASE ,URINE 3+ (NEGATIVE); NITRITE,URINE NEGATIVE (NEGATIVE); PH,URINE 5 (5-9); PROTEIN,URINE 2+ (NEGATIVE); UROBILINOGEN,URINE NORMAL (NORMAL)
[2019-07-02] MEDS ORDERED: LIDOCAINE 1% INJ 20 ML 20 ML VIAL ONE (11:11)
[2019-07-02 11:27] LABS: BACTERIA,URINE MODERATE /HPF; WBC,URINE 50-100 /HPF
--- NOTE | 2019-07-02 11:33 | ED General ---
General Chief Complaint: Altered Mental Status Stated Complaint: CONFUSION Nursing Triage Note: PT ARRIVED PER [facility], PT HAS ALTERED MENTAL STATUS, PT HAS BACK PAIN, EMS CALLED BY SOCIAL SERVICED TO DO WELFARE CHECK. Nursing Sepsis Screen: Possible Severe Sepsis Risk Source of Information: Patient Exam Limitations: No Limitations History of Present Illness Date Seen by Provider: Jul 02, 2019 Time Seen by Provider: 11:32 Initial Comments To ER per [facility] from home with reports of altered mental status. EMS was called by social and political studies professor who went to her house to check on her as part of senior services, found her to be confused and summoned EMS. She was seen last night at [facility], drug rehabilitation program through one of the local [facility] and was upright walking and talking. There is some question of a possible lung cancer that she's not treating. History of hepatitis C. Timing/Duration: 1-2 Days Severity: Moderate Allergies and Home Medications Allergies Coded Allergies: nitrous oxide (Verified Allergy, Unknown, 06/08/07) Home Medications Acetaminophen 500 Mg Tablet, 1,000 MG PO Q6H PRN for PAIN-MILD, (Reported) Albuterol Sulfate 1 Puff Puff, 1 PUFF IH Q4H PRN for SHORTNESS OF BREATH, (Reported) LAST FILLED 18 Amitriptyline HCl 50 Mg Tablet, 50 MG PO DAILY, (Reported) Carvedilol 12.5 Mg Tablet, 12.5 MG PO BID, (Reported) Clonidine HCl 0.2 Mg Tablet, 0.2 MG PO TID, (Reported) LAST FILLED #90 05-22-18 Doxycycline Hyclate 100 Mg Tablet, 100 MG PO BID Prescribed by: QUIN JONES on 05/04/19 1214 Fluticasone/Salmeterol 1 Each Blst.w.dev, 1 PUFF IH BID, (Reported) LAST FILLED 09-26- Haloperidol 5 Mg Tablet, 5 MG PO Q4H PRN for DELIRIUM, (Reported) Hydralazine HCl 50 Mg Tablet, 50 MG PO TID, (Reported) Hydroxyzine Pamoate 25 Mg Capsule, 25 MG PO Q8H PRN for ANXIETY, (Reported) Loratadine 10 Mg Tablet, 10 MG PO HS, (Reported) Losartan Potassium 100 Mg Tablet, 100 MG PO DAILY, (Reported) LAST FILLED #30 8-10-18 Melatonin 5 Mg Tablet, 5 MG PO HS, (Reported) Metoprolol Succinate 100 Mg Tab.er.24h, 100 MG PO DAILY, (Reported) Oxcarbazepine 600 Mg Tablet, 600 MG PO BID, (Reported) Pantoprazole Sodium 40 Mg Tablet.dr, 40 MG PO DAILY, (Reported) Phenobarbital 97.2 Mg Tablet, 97.2 MG PO DAILY, (Reported) Prednisone 20 Mg Tab, 40 MG PO DAILY Prescribed by: NEERAJ VILLA on 09/10/182125 Quetiapine Fumarate 25 Mg Tablet, 75 MG PO HS, (Reported) TAKES 3 (25MG) TABLETS Spironolactone 25 Mg Tablet, 25 MG PO DAILY, (Reported) LAST FILLED #30 05-22-18 Patient Home Medication List Home Medication List Reviewed: Yes Review of Systems Review of Systems Constitutional: see HPI EENTM: see HPI Respiratory: no symptoms reported Cardiovascular: no symptoms reported Genitourinary: no symptoms reported Musculoskeletal: see HPI Skin: no symptoms reported Psychiatric/Neurological: No Symptoms Reported Hematologic/Lymphatic: No Symptoms Reported Past Goldeqj-Aflimu-Acbwtx Hx Patient Social History Drug of Choice: HX OF IV METH USE Type Used: Cigarettes 2nd Hand Smoke Exposure: Yes Recent Foreign Travel: No Contact w/Someone Who Travel: No Recent Infectious Disease Expo: No Recent Hopitalizations: No Immunizations Up To Date Tetanus Booster (TDap): Less than 5yrs PED Vaccines UTD: No Date of Pneumonia Vaccine: Jul 13, 2012 Date of Influenza Vaccine: Jul 28, 2018 Seasonal Allergies Seasonal Allergies: No Past Medical History Surgeries: Yes (hernia repair, T&A, hysterectomy, bladder suspension, multi to left leg, ) Abdominal, Hysterectomy, Oophorectomy Respiratory: Yes (SUPPOSED TO WEAR O2 AT HS AT 2 1/2-3L AT HS AND PRN) COPD Currently Using CPAP: No Currently Using BIPAP: No Cardiac: Yes Hypertension, Valvular Heart Disease Neurological: Yes (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; CVA LEFT SIDE WEAKNESS, POOR BALANCE/USES WALKER) Seizure Disorder, Stroke 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 Disorders: No Female 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 Sexually Transmitted Disease: No HIV/AIDS: No Kidney Infection, Bladder Infection, Kidney Stones, Renal Failure, UTI-Chronic Gastrointestinal: Yes (CHRONIC ABDOMINAL PAIN COMPLAINT; GASTRITIS; HEPATITIS C) Gastroesophageal Reflux Musculoskeletal: Yes Arthritis, Chronic Back Pain Endocrine: No HEENT: No Loss of Vision: Denies Hearing Impairment: Denies Cancer: No Cervical Psychosocial: Yes (SUBSTANCE ABUSE) Anxiety, Bipolar, Depression Integumentary: No Blood Disorders: Yes (ANEMIA) Adverse Reaction/Blood Tranf: No Family Medical History Abdominal aortic aneurysm 03 FATHER Alcoholism 03 FATHER 03 MOTHER 09 SISTER 09 SISTER Cancer 03 FATHER Cataract 03 FATHER 03 MOTHER Chest pain 03 MOTHER Family history: Diabetes mellitus 03 MOTHER Family history: Hypertension 03 MOTHER Family history: Thyroid disorder 03 MOTHER Headache 09 SISTER Heart disease 03 MOTHER History of drug abuse 03 FATHER 09 SISTER Myocardial infarction 03 MOTHER No Family History of: [place]'s disease Aphasia Cancer of colon Congenital heart disease Congestive heart failure Cystic fibrosis Dementia Dysphagia Family history: Allergy Family history: Alzheimer's disease Family history: Arthritis Family history: Asthma Family history: Breast disease Family history: Cardiovascular disease Family history: Coronary thrombosis Family history: Gastrointestinal disease Family history: Glaucoma Family history: Osteoporosis Hearing loss Hereditary disease History of - anemia History of - disorder History of - respiratory disease Human immunodeficiency virus (HIV) seropositivity Hypercholesterolemia Infertile Kidney disease Malignant neoplasm of lung Parkinson's disease Prostate cancer Psychotic disorder Seizure disorder Stroke Tuberculosis Visual impairment Diabetes Physical Exam Vital Signs Vital Signs - First Documented 07/02/19 10:45 Temp 35.8 Pulse 57 Resp 30 B/P (MAP) 92/57 (69) Pulse Ox 96 O2 Delivery Nasal Cannula O2 Flow Rate 2.00 Capillary Refill : Less Than 3 Seconds Height, Weight, BMI Height: 5'3.00" Weight: 187lbs. 0.0oz. [id number]; 32.00 BMI Method:Stated General Appearance: No Apparent Distress, WD/WN, Chronically ill, Other (patient arrives, arousable to verbal stimuli, does follow command, begins moaning and writhing with any movement, severe pain in her thoracic back and lumbar spine.) Eyes: Bilateral Eye Normal Inspection, Bilateral Eye PERRL HEENT: PERRL/EOMI, Other (Missing the top central teeth chronically) Neck: Full Range of Motion, Normal Inspection Respiratory: Normal Breath Sounds, No Accessory Muscle Use, No Respiratory Distress Cardiovascular: Regular Rate, Rhythm, Normal Peripheral Pulses Gastrointestinal: Normal Bowel Sounds, Non Tender, Soft Extremity: Normal Capillary Refill Neurologic/Psychiatric: No Motor/Sensory Deficits, Other (arousable to verbal stimuli) Skin: Warm/Dry, Pallor Focused Exam Lactate Level 07/02/19 11:30: Lactic Acid Level 0.63 Lactic Acid Level Laboratory Tests Test 07/02/19 11:30 Lactic Acid Level 0.63 MMOL/L (0.50-2.00) Procedures/Interventions Lumen: triple Position: internal jugular (R) Anesthesia: Lidocaine Volume Anesthetic (ccs): 5 Complications: none Post Position: sutured Due to patient's writhing and moaning with any position change she was given 50 g of fentanyl before the central line placement to reduce risk of injury. Blood pressure is 85/46, she has poor veins, 22-gauge into the right shoulder area used as temporary IV access. Progress/Results/Core Measures Suspected Sepsis Recent Fever Within 48 Hours: No Infection Criteria Present: Suspected New Infection New/Unexplained Altered Menta: Yes Sepsis Screen: Possible Severe Sepsis Risk SIRS Temperature: Pulse: 57 Respiratory Rate: 30 Laboratory Tests 07/02/19 11:30: White Blood Count 5.1 Blood Pressure 92 /57 Mean: 69 07/02/19 11:30: Lactic Acid Level 0.63 Laboratory Tests 07/02/19 11:30: Creatinine 2.38H, INR Comment 1.0, Platelet Count 249, Total Bilirubin 0.3 Results/Orders Lab Results Laboratory Tests Test 07/02/19 11:04 07/02/19 11:30 07/02/19 11:57 Range/Units Urine Color YELLOW Urine Clarity SLIGHTLY CLOUDY Urine pH 5 5-9 Urine Specific [place] 1.020 1.016-1.022 Urine Protein 2+ H NEGATIVE Urine Glucose (UA) NEGATIVE NEGATIVE Urine Ketones NEGATIVE NEGATIVE Urine Nitrite NEGATIVE NEGATIVE Urine Bilirubin NEGATIVE NEGATIVE Urine Urobilinogen NORMAL NORMAL MG/DL Urine Leukocyte Esterase 3+ H NEGATIVE Urine RBC (Auto) NEGATIVE NEGATIVE Urine RBC NONE /HPF Urine WBC 50-100 H /HPF Urine Squamous Epithelial Cells 2-5 /HPF Urine Crystals NONE /LPF Urine Bacteria MODERATE H /HPF Urine Casts NONE /LPF Urine Mucus NEGATIVE /LPF Urine Culture Indicated YES Urine Opiates Screen NEGATIVE NEGATIVE Urine Oxycodone Screen NEGATIVE NEGATIVE Urine Methadone Screen NEGATIVE NEGATIVE Urine Propoxyphene Screen NEGATIVE NEGATIVE Urine Barbiturates Screen POSITIVE H NEGATIVE Ur Tricyclic Antidepressants Screen NEGATIVE NEGATIVE Urine Phencyclidine Screen NEGATIVE NEGATIVE Urine Amphetamines Screen POSITIVE H NEGATIVE Urine Methamphetamines Screen POSITIVE H NEGATIVE Urine Benzodiazepines Screen NEGATIVE NEGATIVE Urine Cocaine Screen NEGATIVE NEGATIVE Urine Cannabinoids Screen NEGATIVE NEGATIVE White Blood Count 5.1 4.3-11.0 10^3/uL Red Blood Count 3.17 L 4.35-5.85 10^6/uL Hemoglobin 9.2 L 11.5-16.0 G/DL Hematocrit 29 L 35-52 % Mean Corpuscular Volume 90 80-99 FL Mean Corpuscular Hemoglobin 29 25-34 PG Mean Corpuscular Hemoglobin Concent 32 32-36 G/DL Red Cell Distribution Width 15.0 H 10.0-14.5 % Platelet Count 249 130-400 10^3/uL Mean Platelet Volume 10.2 7.4-10.4 FL Neutrophils (%) (Auto) 71 42-75 % Lymphocytes (%) (Auto) 23 12-44 % Monocytes (%) (Auto) 6 0-12 % Eosinophils (%) (Auto) 0 0-10 % Basophils (%) (Auto) 0 0-10 % Neutrophils # (Auto) 3.6 1.8-7.8 X 10^3 Lymphocytes # (Auto) 1.2 1.0-4.0 X 10^3 Monocytes # (Auto) 0.3 0.0-1.0 X 10^3 Eosinophils # (Auto) 0.0 0.0-0.3 10^3/uL Basophils # (Auto) 0.0 0.0-0.1 10^3/uL Prothrombin Time 13.4 12.2-14.7 SEC INR Comment 1.0 0.8-1.4 Activated Partial Thromboplast Time 38 H 24-35 SEC Sodium Level 133 L 135-145 MMOL/L Potassium Level 3.4 L 3.6-5.0 MMOL/L Chloride Level 105 98-107 MMOL/L Carbon Dioxide Level 21 21-32 MMOL/L Anion Gap 7 5-14 MMOL/L Blood Urea Nitrogen 61 H 7-18 MG/DL Creatinine 2.38 H 0.60-1.30 MG/DL Estimat Glomerular Filtration Rate 21 BUN/Creatinine Ratio 26 Glucose Level 115 H 70-105 MG/DL Lactic Acid Level 0.63 0.50-2.00 MMOL/L Calcium Level 7.4 L 8.5-10.1 MG/DL Corrected Calcium 8.0 L 8.5-10.1 MG/DL Total Bilirubin 0.3 0.1-1.0 MG/DL Aspartate Amino Transf (AST/SGOT) 35 H 5-34 U/L Alanine Aminotransferase (ALT/SGPT) 29 0-55 U/L Alkaline Phosphatase 63 40-136 U/L Ammonia 24 11-32 UMOL/L Total Protein 5.8 L 6.4-8.2 GM/DL Albumin 3.3 3.2-4.5 GM/DL Acetaminophen Level < 10 L 10-30 UG/ML Serum Alcohol < 10 <10 MG/DL Blood Gas Puncture Site LEFT RADIAL Blood Gas Patient Temperature 35.8 Arterial Blood pH 7.30 *L 7.37-7.43 Arterial Blood Partial Pressure CO2 39 35-45 MMHG Arterial Blood Partial Pressure O2 107 H 79-93 MMHG Arterial Blood HCO3 19 L 23-27 MMOL/L Arterial Blood Total CO2 20.4 L 21.0-31.0 MMOL/L Arterial Blood Oxygen Saturation 98 94-100 % Arterial Blood Base Excess -6.3 L -2.5-2.5 MMOL/L Dominguez Test POSITIVE Blood Gas Ventilator Setting NO Blood Gas Inspired Oxygen 2 My Orders Orders - NEERAJ VILLA APRN Ed Iv/Invasive Line Start (07/02/19 10:49) Cbc With Automated Diff (07/02/19 10:49) Comprehensive Metabolic Panel (07/02/19 10:49) Ua Culture If Indicated (07/02/19 10:49) Partial Thromboplastin Time (07/02/19 10:49) Protime With Inr (07/02/19 10:49) Ammonia (07/02/19 10:49) Ashford Cath (07/02/19 10:49) Fentanyl Injection (Sublimaze Injection (07/02/19 11:00) Ns Iv 1000 Ml (Sodium Chloride 0.9%) (07/02/19 11:00) Blood Culture (07/02/19 10:51) Lactic Acid Analyzer (07/02/19 10:51) Urine Culture (07/02/19 11:04) Chest 1 View, Ap/Pa Only (07/02/19 11:30) Drug Screen Stat (Urine) (07/02/19 11:39) Alcohol (07/02/19 11:39) Acetaminophen (07/02/19 11:39) Ns Iv 1000 Ml (Sodium Chloride 0.9%) (07/02/19 12:00) Arterial Blood Gas (07/02/19 11:56) Norepinephrine (Levophed) (07/02/19 12:15) Chest 1 View, Ap/Pa Only (07/02/19 12:42) Ct Chest/Abdomen/Pelvis Wo (07/02/19 12:42) Propofol Drip (Icu) (Diprivan Drip (Icu) (07/02/19 12:57) Ct Head Wo (07/02/19 ) Etomidate Injection (Amidate Injection) (07/02/19 10:50) Rocuronium 5 Ml Syringe (Rocuronium 5 Ml (07/02/19 10:50) Rocephin 1 Gm Iv (1x Dose) (07/02/19 14:45) Medications Given in ED Current Medications Medications Dose Ordered Sig/Tad Route Start Time Stop Time Status Last Admin Dose Admin Fentanyl Citrate 50 mcg ONCE ONCE IVP 07/02/19 11:00 07/02/19 11:01 DC 07/02/19 11:02 25 MCG Lidocaine HCl 20 ml STK-MED ONCE .ROUTE 07/02/19 11:11 07/02/19 11:20 DC 07/02/19 11:25 8 ML Propofol 100 ml @ ud STK-MED ONCE IV 07/02/19 12:57 07/02/19 13:07 DC 07/02/19 13:18 40 MLS/HR Vital Signs/I&O 07/02/19 07/02/19 10:45 13:18 Temp 35.8 Pulse 57 46 Resp 30 12 B/P (MAP) 92/57 (69) 112/70 Pulse Ox 96 99 O2 Delivery Nasal Cannula Mechanical Ventilator O2 Flow Rate 2.00 Capillary Refill : Less Than 3 Seconds Blood Pressure Mean: 69 Departure Communication (Admissions) Time/Spoke to Admitting Phy: 14:[address] Patel, agrees to admit. Consult Dr. Balderrama Time/Spoke to Consulting Phy: 14:[address] Balderrama agrees to consult 1245-she has persistent snoring respirations, with any stimulus though she begins flailing moaning and writhing. Because of these persistent inadequate respirations and for the sake of airway protection we did intubate 7.5 endotracheal tube 21 cm at the gums. Initial settings tidal volume 400, rate of 16, PEEP 5, initial FiO2 50%. Impression Primary Impression: Altered mental status Qualified Codes: R41.82 - Altered mental status, unspecified Additional Impressions: Hypotension Qualified Codes: I95.9 - Hypotension, unspecified Methamphetamine use Disposition: 09 ADMITTED INPATIENT Condition: Stable Admissions Decision to Admit Reason: Admit from ER (General) Decision to Admit/Date: Jul 02, 2019 Time/Decision to Admit Time: 12:47 Departure-Patient Inst. Referrals: [facility] (PCP/Family) Primary Care Physician NEERAJ VILLA APRN Jul 02, 2019 11:33
[2019-07-02 11:44] LABS: BASOPHILS % (AUTO) 0 % (0-10); EOSINOPHILS % (AUTO) 0 % (0-10); HEMATOCRIT 29 % (35-52); HEMOGLOBIN 9.2 G/DL (11.5-16.0); LYMPHOCYTES # (AUTO) 1.2 X 10^3 (1.0-4.0); LYMPHOCYTES % (AUTO) 23 % (12-44); MEAN CORPUSCULAR HEMOGLOBIN 29 PG (25-34); MEAN CORPUSCULAR HGB CONC 32 G/DL (32-36); MEAN CORPUSCULAR VOLUME 90 FL (80-99); MEAN PLATELET VOLUME 10.2 FL (7.4-10.4); MONOCYTES # (AUTO) 0.3 X 10^3 (0.0-1.0); MONOCYTES % (AUTO) 6 % (0-12); NEUTROPHILS # (AUTO) 3.6 X 10^3 (1.8-7.8); NEUTROPHILS % (AUTO) 71 % (42-75); PLATELET COUNT 249 10^3/uL (130-400); WHITE BLOOD COUNT 5.1 10^3/uL (4.3-11.0)
[2019-07-02 11:55] LABS: PROTHROMBIN TIME PATIENT 13.4 SEC (12.2-14.7)
--- NOTE | 2019-07-02 11:55 | Diagnostic Imaging Report ---
INDICATION: Altered mental status and back pain. Time of exam: 11:40 AM Correlation is made with prior chest from 05/04/2019. Right IJ line has tip overlying the SVC. No pneumothorax is identified. There is mild central congestion but no overt failure. Lungs appear clear. There is no effusion. IMPRESSION: 1. Mild central congestion without evidence of overt failure. 2. Right IJ line placement which has its tip in good position overlying the SVC. No pneumothorax is identified. Dictated by: Dictated on workstation # [id number]
[2019-07-02 11:59] LABS: ALBUMIN 3.3 GM/DL (3.2-4.5); BILIRUBIN,TOTAL 0.3 MG/DL (0.1-1.0); CALCIUM 7.4 MG/DL (8.5-10.1); CREATININE SERUM 2.38 MG/DL (0.60-1.30); POTASSIUM 3.4 MMOL/L (3.6-5.0); TOTAL PROTEIN 5.8 GM/DL (6.4-8.2)
[2019-07-02 12:01] LABS: AMPHETAMINE SCREEN, URINE POSITIVE (NEGATIVE); BARBITURATE SCREEN URINE POSITIVE (NEGATIVE); BENZODIAZEPINES SCREEN URINE NEGATIVE (NEGATIVE); CANNABINOID SCREEN, URINE NEGATIVE (NEGATIVE); COCAINE SCREEN URINE NEGATIVE (NEGATIVE); METHADONE STAT NEGATIVE (NEGATIVE); METHAMPHETAMINE SCREEN URINE S POSITIVE (NEGATIVE); OPIATE SCREEN URINE NEGATIVE (NEGATIVE); OXYCODONE STAT NEGATIVE (NEGATIVE); PROPOXYPHENE STAT NEGATIVE (NEGATIVE); TRICYCLIC ANTIDEPRESSANTS SCRE NEGATIVE (NEGATIVE)
[2019-07-02 12:04] LABS: ABG BASE EXCESS -6.3 MMOL/L (-2.5-2.5); ABG OXYGEN SATURATION 98 % (94-100); ABG PCO2 39 MMHG (35-45); ABG PO2 107 MMHG (79-93); ABG TCO2 20.4 MMOL/L (21.0-31.0)
[2019-07-02 12:05] LABS: ALLENS TEST POSITIVE; INSPIRED O2 2; PATIENT TEMP 35.8; VENTILATOR NO
[2019-07-02] MEDS ORDERED: NOREPINEPHRINE 4 MG in NS (IVPB) 250 ML IV SCH (12:15)
[2019-07-02 12:19] LABS: ACETAMINOPHEN < 10 UG/ML (10-30)
--- NOTE | 2019-07-02 12:33 | NUR ---
PT GIVEN ETOMADATE 20MG IV FOR RSI, 1234 SHARMIN 50MG IV GIVEN FOR RSI. 1236 PT INTUBATED W 7.5 ET TUBE BY Haydee MCCARTNEY. 1240 OG #16 INSERTED.
[2019-07-02] MEDS ORDERED: PROPOFOL DRIP (ICU) 100 ML IV ONE ×2 (12:57→15:14)
--- NOTE | 2019-07-02 13:17 | NUR ---
PT WAKING UP SHARMIN 50MG IV GIVEN BY Haydee MCCARTNEY
--- NOTE | 2019-07-02 13:34 | Diagnostic Imaging Report ---
Indication: Endotracheal tube placement. Time of Exam: 1:18 PM Correlation is made with prior chest earlier same day. Endotracheal tube is in place, has the tip well above the viktoria. Tip is just below the level of the thoracic inlet right IJ line has tip overlying the right SVC. There is no pneumothorax seen. Lungs appear to be fairly clear apart from minimal subsegmental atelectasis in the left base. NG tube passes below the diaphragm. Impression: Endotracheal tube and nasogastric tube placement, as described. Dictated by: Dictated on workstation # [id number]
--- NOTE | 2019-07-02 14:09 | Diagnostic Imaging Report ---
EXAMINATION: CT head without contrast. TECHNIQUE: Multiple contiguous axial images were obtained through the brain without the use of intravenous contrast. All CT scans use one or more of the following dose optimizing techniques: automated exposure control, MA and/or KvP adjustment based on a patient size and exam type, or iterative reconstruction. HISTORY: Altered mental status and confusion FINDINGS: Comparison is 06/05/2014 The patient is intubated and an orogastric tube is present. There is an old lacunar infarct in the right centrum semiovale. The shook-white matter differentiation is normal. No mass effect or midline shift. The ventricles are normal in size and configuration. Basilar cisterns are patent. There are no intra- or extra-axial fluid collections. There is no intracranial hemorrhage. The orbits are normal. Paranasal sinuses are normal. Mastoid air cells are clear. No soft tissue abnormality is seen. No osseus lesions or fractures are seen. IMPRESSION: 1. No acute intracranial abnormality. Dictated by: Dictated on workstation # [id number]
--- NOTE | 2019-07-02 14:29 | Diagnostic Imaging Report ---
PROCEDURE: CT chest, abdomen, and pelvis without contrast. TECHNIQUE: Multiple contiguous axial images were obtained through the chest, abdomen, and pelvis without the use of intravenous contrast. Auto Exposure Controls were utilized during the CT exam to meet ALARA standards for radiation dose reduction. INDICATION: Altered mental status and confusion as well as back pain. COMPARISON: Comparison is made with prior CT chest from 04/07/[address] abdomen and pelvis from 05/15/2018. FINDINGS: CT chest: The patient is intubated. ET tube is above the viktoria. NG tube passes into the stomach. No axillary lymphadenopathy is seen. Mediastinal evaluation is limited without intravenous contrast. No gross abnormality is detected. No pericardial or pleural fluid is identified. The central airways are patent. There are mild bibasilar infiltrates or atelectasis. No masses are seen. IMPRESSION: Mild bibasilar infiltrates or atelectasis. Study is otherwise unremarkable. CT abdomen and pelvis: No discrete liver mass is identified. The gallbladder is unremarkable. No biliary ductal dilatation is seen. The pancreas and spleen are unremarkable. No adrenal mass is seen. Right kidney demonstrates moderate atrophy. Left kidney is unremarkable. No calculi or hydronephrosis is detected. Aorta is calcified but nonaneurysmal. There is an anterior abdominal wall laxity but no discrete abdominal wall defect or hernia is identified. Bowel loops do not appear to be obstructed. There is no free fluid or fluid collection identified. The bladder is decompressed by Ashford catheter. No inflammatory changes are seen. IMPRESSION: No acute feature in the abdomen or pelvis is identified. Dictated by: Dictated on workstation # [id number]
[2019-07-02] MEDS ORDERED: cefTRIAXone FOR IV USE 1,000 MG in WATER (STERILE) FOR INJECTION 10 ML IV ONE (14:45)
[2019-07-02] MEDS ORDERED: cefTRIAXone 1,000 MG IV (ROCEPHIN) VIAL ONE (14:49)
[2019-07-02] MEDS ORDERED: DEXMEDETOMIDINE INJECTION 1,000 MCG in NS (IVPB) 250 ML IV SCH (16:15)
[2019-07-02] MEDS ORDERED: NOREPINEPHRINE 4 MG/NS 250 ML DRIP IV SCH ×2 (16:15)
[2019-07-02] MEDS ORDERED: PROPOFOL DRIP (ICU) 100 ML IV SCH ×3 (16:15→22:30)
[2019-07-02] MEDS ORDERED: fentaNYL INJECTION 1,250 MCG in NS (IVPB) 250 ML IV SCH (16:15)
[2019-07-02] MEDS ORDERED: CATHETER FLUSH 10 ML SYR IV PRN (16:15)
[2019-07-02] MEDS ORDERED: DEXMEDETOMIDINE INJECTION 1,000 MCG in NS (IVPB) 240 ML IV SCH (16:30)
[2019-07-02] MEDS: ENOXAPARIN 30 MG/0.3 ML (LOVENOX) SYR SC SCH (17:04)
[2019-07-02] MEDS: NS IV 1000 ML 1,000 ML IV SCH (17:06)
[2019-07-02] MEDS: PROPOFOL DRIP (ICU) 100 ML IV SCH (22:25)
[2019-07-03] VITALS (19 sets, daily range): BP systolic 82–167; BP diastolic 54–103
[2019-07-03] MEDS: NS IV 1000 ML 1,000 ML IV SCH ×2 (03:07→14:30)
[2019-07-03] MEDS: PROPOFOL DRIP (ICU) 100 ML IV SCH (03:08)
[2019-07-03 04:04] LABS: BASOPHILS % (AUTO) 0 % (0-10); EOSINOPHILS # (AUTO) 0.1 10^3/uL (0.0-0.3); EOSINOPHILS % (AUTO) 1 % (0-10); HEMATOCRIT 32 % (35-52); HEMOGLOBIN 10.3 G/DL (11.5-16.0); LYMPHOCYTES # (AUTO) 0.6 X 10^3 (1.0-4.0); LYMPHOCYTES % (AUTO) 8 % (12-44); MEAN CORPUSCULAR HEMOGLOBIN 29 PG (25-34); MEAN CORPUSCULAR HGB CONC 33 G/DL (32-36); MEAN CORPUSCULAR VOLUME 90 FL (80-99); MEAN PLATELET VOLUME 10.5 FL (7.4-10.4); MONOCYTES # (AUTO) 0.3 X 10^3 (0.0-1.0); MONOCYTES % (AUTO) 4 % (0-12); NEUTROPHILS # (AUTO) 6.3 X 10^3 (1.8-7.8); NEUTROPHILS % (AUTO) 87 % (42-75); PLATELET COUNT 249 10^3/uL (130-400); RED CELL DISTRIBUTION WIDTH 15.3 % (10.0-14.5); WHITE BLOOD COUNT 7.2 10^3/uL (4.3-11.0)
[2019-07-03 04:18] LABS: ABG BASE EXCESS -8.3 MMOL/L (-2.5-2.5); ABG OXYGEN SATURATION 95 % (94-100); ABG PCO2 34 MMHG (35-45); ABG PO2 87 MMHG (79-93); ABG TCO2 17.7 MMOL/L (21.0-31.0)
[2019-07-03 04:19] LABS: ABG PH 7.32 (7.37-7.43); ALLENS TEST YES-POS; INSPIRED O2 40; PATIENT TEMP 36.8; VENTILATOR YES
[2019-07-03 04:27] LABS: CALCIUM 7.6 MG/DL (8.5-10.1); CREATININE SERUM 1.99 MG/DL (0.60-1.30); MAGNESIUM 2.3 MG/DL (1.6-2.4)
[2019-07-03 05:36] LABS: ANISOCYTOSIS SLIGHT; BAND NEUTROPHILS 12 %; EOSINOPHILS % (MANUAL) 2 %; LYMPHOCYTES % (MANUAL) 7 %; MONOCYTES % (MANUAL) 1 %; NEUTROPHILS % (MANUAL) 78 %; POIKILOCYTOSIS SLIGHT; SPHEROCYTES SLIGHT
[2019-07-03] MEDS ORDERED: KCL 20 MEQ TAB (K-DUR) PO SCH (06:00)
[2019-07-03] MEDS: inSUlin ASPART (NovoLOG) 1 UNIT/0.01 ML (CHARGE PER UNIT) SQ SCH ×2 (06:00→12:38)
[2019-07-03] MEDS ORDERED: MAGNESIUM 1 GM/100 ML IVPB 100 ML IV SCH (06:00)
[2019-07-03] MEDS ORDERED: POTASSIUM CL 10MEQ/50ML IVPB 50 ML IV SCH ×2 (06:00→07:15)
--- NOTE | 2019-07-03 06:50 | NUR ---
At Bedside. Orders for 5cc Diprivan Push. Orders completed. Will continue to monitor Blood Pressure.
[2019-07-03] MEDS ORDERED: SODIUM BICARB 8.4% 50 MEQ/50 ML VIAL IV ONE (07:15)
[2019-07-03] MEDS ORDERED: NS IV 1000 ML 1,000 ML IV SCH (07:15)
[2019-07-03] MEDS ORDERED: HALOPERIDOL 5 MG/ML (HALDOL) AMP IV PRN (07:15)
--- NOTE | 2019-07-03 07:25 | Pulmonary Consultation ---
History of Present Illness History of Present Illness Date of Consultation 07/02/19 -- Late note for 07/02 today is 9/21. 1600 Time Seen by Provider: 16:30 Date of Admission History of Present Illness 58yo with hx of hep C, drug use presented to ED via EMS secondary to altered MS and back pain. EMS was called by SS during a welfare check. Pt was very confused when EMS arrived. Pt became more unresponsive while in the ED and was intubated. UDS is positive for TCA and methamphetamines. Unable to obtain ROS. I am consulted for pulmonary/ICU management. Allergies and Home Medications Allergies Coded Allergies: nitrous oxide (Verified Allergy, Unknown, 06/08/07) Home Medications Acetaminophen 500 Mg Tablet, 1,000 MG PO Q6H PRN for PAIN-MILD, (Reported) Albuterol Sulfate 1 Puff Puff, 1 PUFF IH Q4H PRN for SHORTNESS OF BREATH, (Reported) LAST FILLED 18 Amitriptyline HCl 50 Mg Tablet, 50 MG PO DAILY, (Reported) Carvedilol 12.5 Mg Tablet, 12.5 MG PO BID, (Reported) Clonidine HCl 0.2 Mg Tablet, 0.2 MG PO TID, (Reported) LAST FILLED #90 18 Doxycycline Hyclate 100 Mg Tablet, 100 MG PO BID Prescribed by: QUIN JONES on 05/04/19 1214 Fluticasone/Salmeterol 1 Each Blst.w.dev, 1 PUFF IH BID, (Reported) LAST FILLED 09-26-17 Haloperidol 5 Mg Tablet, 5 MG PO Q4H PRN for DELIRIUM, (Reported) Hydralazine HCl 50 Mg Tablet, 50 MG PO TID, (Reported) Hydroxyzine Pamoate 25 Mg Capsule, 25 MG PO Q8H PRN for ANXIETY, (Reported) Loratadine 10 Mg Tablet, 10 MG PO HS, (Reported) Losartan Potassium 100 Mg Tablet, 100 MG PO DAILY, (Reported) LAST FILLED #30 18 Melatonin 5 Mg Tablet, 5 MG PO HS, (Reported) Metoprolol Succinate 100 Mg Tab.er.24h, 100 MG PO DAILY, (Reported) Oxcarbazepine 600 Mg Tablet, 600 MG PO BID, (Reported) Pantoprazole Sodium 40 Mg Tablet.dr, 40 MG PO DAILY, (Reported) Phenobarbital 97.2 Mg Tablet, 97.2 MG PO DAILY, (Reported) Prednisone 20 Mg Tab, 40 MG PO DAILY Prescribed by: NEERAJ VILLA on 09/10/182125 Quetiapine Fumarate 25 Mg Tablet, 75 MG PO HS, (Reported) TAKES 3 (25MG) TABLETS Spironolactone 25 Mg Tablet, 25 MG PO DAILY, (Reported) LAST FILLED #30 05-22-18 Past Ylkvvaz-Zrocuk-Zgjmiu Hx Patient Social History Alcohol Use: Denies Use Recreational Drug Use: Yes (METH) Drug of Choice: HX OF IV METH USE Smoking Status: Current Everyday Smoker Type Used: Cigarettes 2nd Hand Smoke Exposure: Yes Recent Foreign Travel: No Contact w/Someone Who Travel: No Recent Infectious Disease Expo: No Recent Hopitalizations: No Immunizations Up To Date Tetanus Booster (TDap): Less than 5yrs PED Vaccines UTD: No Date of Pneumonia Vaccine: Jul 13, 2012 Date of Influenza Vaccine: Jul 28, 2018 Seasonal Allergies Seasonal Allergies: No Past Medical History Surgeries: Yes (hernia repair, T&A, hysterectomy, bladder suspension, multi to left leg, ) Abdominal, Hysterectomy, Oophorectomy Respiratory: Yes (SUPPOSED TO WEAR O2 AT HS AT 2 1/2-3L AT HS AND PRN) COPD Currently Using CPAP: No Currently Using BIPAP: No Cardiac: Yes Hypertension, Valvular Heart Disease Neurological: Yes (TBI CHILD; CVA LEFT SIDE WEAKNESS, POOR BALANCE/USES WALKER) Seizure Disorder, Stroke 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 Disorders: No Female 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 Sexually Transmitted Disease: No HIV/AIDS: No Kidney Infection, Bladder Infection, Kidney Stones, Renal Failure, UTI-Chronic Gastrointestinal: Yes (CHRONIC ABDOMINAL PAIN COMPLAINT; GASTRITIS; HEPATITIS C) Gastroesophageal Reflux Musculoskeletal: Yes Arthritis, Chronic Back Pain Endocrine: No HEENT: No Loss of Vision: Denies Hearing Impairment: Denies Cancer: No Cervical Psychosocial: Yes (SUBSTANCE ABUSE) Anxiety, Bipolar, Depression Integumentary: No Blood Disorders: Yes (ANEMIA) Adverse Reaction/Blood Tranf: No Family Medical History Abdominal aortic aneurysm 03 FATHER Alcoholism 03 FATHER 03 MOTHER 09 SISTER 09 SISTER Cancer 03 FATHER Cataract 03 FATHER 03 MOTHER Chest pain 03 MOTHER Family history: Diabetes mellitus 03 MOTHER Family history: Hypertension 03 MOTHER Family history: Thyroid disorder 03 MOTHER Headache 09 SISTER Heart disease 03 MOTHER History of drug abuse 03 FATHER 09 SISTER Myocardial infarction 03 MOTHER No Family History of: [place]'s disease Aphasia Cancer of colon Congenital heart disease Congestive heart failure Cystic fibrosis Dementia Dysphagia Family history: Allergy Family history: Alzheimer's disease Family history: Arthritis Family history: Asthma Family history: Breast disease Family history: Cardiovascular disease Family history: Coronary thrombosis Family history: Gastrointestinal disease Family history: Glaucoma Family history: Osteoporosis Hearing loss Hereditary disease History of - anemia History of - disorder History of - respiratory disease Human immunodeficiency virus (HIV) seropositivity Hypercholesterolemia Infertile Kidney disease Malignant neoplasm of lung Parkinson's disease Prostate cancer Psychotic disorder Seizure disorder Stroke Tuberculosis Visual impairment Diabetes Review of Systems Time Seen by Provider: 07:33 Sepsis Event Evaluation Height, Weight, BMI Height: 5'3.00" Weight: 154lbs. 8.0oz. 70.202910ox; 32.00 BMI Method:Stated Exam Exam Vital Signs Date Time Temp Pulse Resp B/P (MAP) Pulse Ox O2 Delivery O2 Flow Rate FiO2 07/03/19 06:00 50 17 115/76 (89) 100 Mechanical Ventilator 35.00 07/03/19 05:00 49 17 109/61 (77) 100 Mechanical Ventilator 35.00 07/03/19 04:00 Mechanical Ventilator 40 07/03/19 04:00 49 17 91/56 (68) 100 Mechanical Ventilator 35.00 07/03/19 03:08 55 105/62 07/03/19 03:00 55 18 105/62 (76) 100 Mechanical Ventilator 35.00 07/03/19 02:05 63 29 100 35 07/03/19 02:00 56 17 121/77 (92) 100 Mechanical Ventilator 35.00 07/03/19 01:00 56 17 114/73 (87) 100 Mechanical Ventilator 35.00 07/03/19 01:00 58 07/03/19 00:00 Mechanical Ventilator 40 07/03/19 00:00 57 17 112/74 (87) 100 Mechanical Ventilator 35.00 07/02/19 23:00 54 14 107/63 (78) 100 Mechanical Ventilator 35.00 07/02/19 22:25 48 136/92 07/02/19 22:00 45 18 92/105 (101) 100 Mechanical Ventilator 35.00 07/02/19 21:30 45 18 100 35 07/02/19 21:30 Mechanical Ventilator 35.00 07/02/19 21:00 45 18 117/79 (92) 100 Mechanical Ventilator 40.00 07/02/19 20:15 Mechanical Ventilator 40 07/02/19 20:00 35.4 07/02/19 20:00 41 17 114/77 (89) 100 Mechanical Ventilator 40.00 07/02/19 19:24 35.22508 44 17 109/76 100 Mechanical Ventilator 2.00 07/02/19 19:00 42 07/02/19 19:00 42 17 109/77 (88) 100 Mechanical Ventilator 40.00 07/02/19 18:40 Mechanical Ventilator 40.00 07/02/19 18:35 42 18 100 40 07/02/19 18:00 44 17 109/76 (87) 100 Mechanical Ventilator 50.00 07/02/19 17:00 44 17 92/65 (74) 100 Mechanical Ventilator 50.00 07/02/19 16:15 48 16 125/90 (102) 100 Mechanical Ventilator 50.00 07/02/19 16:06 45 07/02/19 16:00 Mechanical Ventilator 50 07/02/19 16:00 35.2 07/02/19 15:58 44 18 100 50 07/02/19 14:50 46 16 93/54 98 Mechanical Ventilator 07/02/19 13:18 46 12 112/70 99 Mechanical Ventilator 07/02/19 10:45 35.8 57 30 92/57 (69) 96 Nasal Cannula 2.00 I & O 07/03/19 07:00 Intake Total 1000 ml Output Total 1100 ml Balance -100 ml Height & Weight Height: 5'3.00" Weight: 154lbs. 8.0oz. 70.945395hw; 32.00 BMI Method:Stated General Appearance: No Apparent Distress, WD/WN, Chronically ill, Other (sedated on vent) HEENT: PERRL/EOMI Neck: Full Range of Motion, Normal Inspection Respiratory: Normal Breath Sounds, No Accessory Muscle Use, No Respiratory Distress Cardiovascular: Regular Rate, Rhythm, Normal Peripheral Pulses Capillary Refill: Less Than 3 Seconds Extremity: Normal Capillary Refill Neurologic/Psychiatric: No Motor/Sensory Deficits, Other (arousable to verbal stimuli) Skin: Warm/Dry, Pallor Results Lab Laboratory Tests 07/02/19 11:30 07/03/19 03:25 Assessment/Plan Assessment/Plan Acute respiratory failure secondary to OD -Continue vent management. -Pt was intubated with 7.5 ET tube -sedated on vent Methamphetamine/UDS -Education RICARDA COVINGTON DO Jul 03, 2019 07:25
--- NOTE | 2019-07-03 07:35 | Pulmonary Progress Note ---
Subjective Time Seen by a Provider: 07:34 Subjective/Events-last exam PT is sedated on vent. Will S/C sedation and attempt extubation. Sepsis Event Evaluation Height, Weight, BMI Height: 5'3.00" Weight: 154lbs. 8.0oz. 70.022856ni; 32.00 BMI Method:Stated Focused Exam Lactate Level 07/02/19 11:30: Lactic Acid Level 0.63 Exam Exam Vital Signs Date Time Temp Pulse Resp B/P (MAP) Pulse Ox O2 Delivery O2 Flow Rate FiO2 07/03/19 06:00 50 17 115/76 (89) 100 Mechanical Ventilator 35.00 07/03/19 05:00 49 17 109/61 (77) 100 Mechanical Ventilator 35.00 07/03/19 04:00 Mechanical Ventilator 40 07/03/19 04:00 49 17 91/56 (68) 100 Mechanical Ventilator 35.00 07/03/19 03:08 55 105/62 07/03/19 03:00 55 18 105/62 (76) 100 Mechanical Ventilator 35.00 07/03/19 02:05 63 29 100 35 07/03/19 02:00 56 17 121/77 (92) 100 Mechanical Ventilator 35.00 07/03/19 01:00 56 17 114/73 (87) 100 Mechanical Ventilator 35.00 07/03/19 01:00 58 07/03/19 00:00 Mechanical Ventilator 40 07/03/19 00:00 57 17 112/74 (87) 100 Mechanical Ventilator 35.00 07/02/19 23:00 54 14 107/63 (78) 100 Mechanical Ventilator 35.00 07/02/19 22:25 48 136/92 07/02/19 22:00 45 18 92/105 (101) 100 Mechanical Ventilator 35.00 07/02/19 21:30 45 18 100 35 07/02/19 21:30 Mechanical Ventilator 35.00 07/02/19 21:00 45 18 117/79 (92) 100 Mechanical Ventilator 40.00 07/02/19 20:15 Mechanical Ventilator 40 07/02/19 20:00 35.4 07/02/19 20:00 41 17 114/77 (89) 100 Mechanical Ventilator 40.00 07/02/19 19:24 35.58766 44 17 109/76 100 Mechanical Ventilator 2.00 07/02/19 19:00 42 07/02/19 19:00 42 17 109/77 (88) 100 Mechanical Ventilator 40.00 07/02/19 18:40 Mechanical Ventilator 40.00 07/02/19 18:35 42 18 100 40 07/02/19 18:00 44 17 109/76 (87) 100 Mechanical Ventilator 50.00 07/02/19 17:00 44 17 92/65 (74) 100 Mechanical Ventilator 50.00 07/02/19 16:15 48 16 125/90 (102) 100 Mechanical Ventilator 50.00 07/02/19 16:06 45 07/02/19 16:00 Mechanical Ventilator 50 07/02/19 16:00 35.2 07/02/19 15:58 44 18 100 50 07/02/19 14:50 46 16 93/54 98 Mechanical Ventilator 07/02/19 13:18 46 12 112/70 99 Mechanical Ventilator 07/02/19 10:45 35.8 57 30 92/57 (69) 96 Nasal Cannula 2.00 l I & O 07/03/19 07:00 Intake Total 1000 ml Output Total 1100 ml Balance -100 ml Height & Weight Height: 5'3.00" Weight: 154lbs. 8.0oz. 70.306612xi; 32.00 BMI Method:Stated General Appearance: No Apparent Distress, WD/WN, Chronically ill, Other (sedated on vent) HEENT: PERRL/EOMI Neck: Full Range of Motion, Normal Inspection Respiratory: Normal Breath Sounds, No Accessory Muscle Use, No Respiratory Distress Cardiovascular: Regular Rate, Rhythm, Normal Peripheral Pulses Capillary Refill: Less Than 3 Seconds Extremity: Normal Capillary Refill Neurologic/Psychiatric: No Motor/Sensory Deficits, Other (arousable to verbal stimuli) Skin: Warm/Dry, Pallor Results Lab Laboratory Tests 07/02/19 11:30 07/03/19 03:25 Assessment/Plan Assessment/Plan Acute respiratory failure secondary to OD -Continue vent management. -Pt was intubated with 7.5 ET tube -D/C sedation and attempt extubation Methamphetamine/UDS -Education Metabolic acidosis -Give 2 amps of bicarb Hypokalemia -replace RICARDA COVINGTON DO Jul 03, 2019 07:35
[2019-07-03] MEDS ORDERED: RT-ALBUTEROL/IPRATROPIUM 3 ML (DUONEB) VIAL INH PRN (07:45)
[2019-07-03] MEDS: POTASSIUM CL 10MEQ/50ML IVPB 50 ML IV SCH ×8 (08:12→14:20)
[2019-07-03] MEDS ORDERED: cefTRIAXone 1,000 MG/SWFI 10 ML IV PUSH IV SCH ×2 (09:00)
--- NOTE | 2019-07-03 09:11 | Diagnostic Imaging Report ---
INDICATION: Shortness of breath COMPARISON: 07/02/2019 TECHNIQUE: Single frontal radiograph of the chest dated 07/03/2019 at 0526 hours. FINDINGS: Significant patient rotation is noted. Endotracheal tube and enteric catheter and right IJ central venous catheter are stable. The cardiac silhouette is mildly enlarged, though stable. No significant pulmonary vascular congestion. Decreasing lung volumes. The left lung, however, remains clear. Developing small right basilar pleural-parenchymal opacity. No pneumothorax. Osseous structures are stable without new acute osseous abnormality. IMPRESSION: Developing small right basilar pleural-parenchymal opacity, related to a combination of pleural fluid with adjacent atelectasis and/or infiltrate. Stable cardiomegaly. Unchanged lines and tubes. Dictated by: Dictated on workstation # [id number]
--- NOTE | 2019-07-03 09:43 | Diagnostic Imaging Report ---
EXAMINATION: Chest radiograph, portable AP view. DATE: July 03, 2019 at 0646 hours. INDICATION: 58-year-old female, shortness of breath. COMPARISON: July 03, 2019 at 0526 hrs. FINDINGS: The endotracheal tube is approximately 6.5 cm above the viktoria. The nasogastric tube overlies the stomach. There is a right internal jugular central venous line overlying the lower SVC. Stable overall appearance of the cardiomediastinal silhouette. There is no identified pneumothorax. There is unchanged nonspecific right basilar airspace consolidation. IMPRESSION: 1. Unchanged nonspecific bibasilar airspace consolidation which may relate to infiltrate, atelectasis, and/or small effusion. 2. Support lines and tubes as above. Dictated by: Dictated on workstation # [id number]
--- NOTE | 2019-07-03 10:27 | Occupational Therapy Eval ---
OT Evaluation-General/PLF Medical Diagnosis Admission Date Jul 02, 2019 at 14:23 Medical Diagnosis: AMS, confusion, resp failure Onset Date: Jul 02, 2019 Therapy Diagnosis Therapy Diagnosis: decr self care, weakness, decr mobility Height/Weight Height (Feet): 5 Height (Inches): 3.00 Weight (Pounds): 154 Weight (Ounces): 8.0 Precautions Precautions/Isolations: Fall Prevention, Standard Precautions Safety Interventions: None Referral Physician: Jorge Referral Reason: Evaluation/Treatment Medical History Pertinent Medical History: Arthritis, COPD, CVA, GERD, HTN, Smoking Additional Medical History Hepatitis C. Possible lung CA. Hx meth use. TBI as child, CVA with L sided weakness. Decr balance, uses walker. Seizure disorder. Chronic back pain, Renal failure. Valvular heart disease. Anxiety, bipolar, depression. Current History Admitted with altered mental status, respiratory failure. On vent and extubated this morning. Reviewed History: Yes Social History Home: Apartment ADL-Prior Level of Function Therapy Code Descriptions/Definitions Functional [place] Measure: 0=Not Assessed/NA 4=Minimal Assistance 1=Total Assistance 5=Supervision or Setup 2=Maximal Assistance 6=Modified [place] 3=Moderate Assistance 7=Complete [place] Therapy Quality Codes: 6 Independent with activity with or without an assistive device 5 Patient requires set up or clean up by helper. Patient completes activity by themselves 4 Supervision or touching assist (CGA). [place] provide cues , steadying assist 3 The helper provides less than half the effort to complete the activity 2 The helper provides more than half the effort to complete the activity 1 Dependent. The helper does all the effort to complete an activity 7 Patient refused to complete or attempt activity 9 The patient did not perform the activity before the current illness or injury 88 Not attempted due to Medical conditions or safety concerns Functional Abilities and Goals: Independent: Patient completed the activities by him/herself, with or without an assistive device, with no assistance from a helper. Needed Some Help: Patient needed partial assistance from another person to complete activities. Dependent: A helper completed the activities for the patient. Unknown: Not Applicable: ADL PLOF Comments Pt reported that she was able to manage all of her basic self care needs prior to admission. She does not drive. OT Current Status Subjective Pt seen in room, in bed, agreeable to OT. No pain mentioned Appearance Pt was restless and agitated. Under multiple blankets, reporting she was cold and reluctant to uncover. Extubated this morning. Mental Status/Objective Patient Orientation: Person, Time Attachments: Central Line, Oxygen, Telemetry Current Upper Extremity ROM Grossly limited at shoulders bilaterally. Reluctant to uncover from blankets to move UEs. Unable to test UE strength ADL-Treatment ADL-Current Pt was extubated earlier this morning. has not been up out of bed and not safe to get her up at this time. very restless and agitated. Pt requested ice tea, which nurse is ordering. Therapy Code Descriptions/Definitions Functional [place] Measure: 0=Not Assessed/NA 4=Minimal Assistance 1=Total Assistance 5=Supervision or Setup 2=Maximal Assistance 6=Modified [place] 3=Moderate Assistance 7=Complete [place] Therapy Quality Codes: 6 Independent with activity with or without an assistive device 5 Patient requires set up or clean up by helper. Patient completes activity by themselves 4 Supervision or touching assist (CGA). [place] provide cues , steadying assist 3 The helper provides less than half the effort to complete the activity 2 The helper provides more than half the effort to complete the activity 1 Dependent. The helper does all the effort to complete an activity 7 Patient refused to complete or attempt activity 9 The patient did not perform the activity before the current illness or injury 88 Not attempted due to Medical conditions or safety concerns Education OT Patient Education: Purpose of tx/functional activities, Rehab process Teaching Recipient: Patient Teaching Methods: Discussion Response to Teaching: Verbalize Understanding, Reinforcement Needed OT Electric Shaver Mechanic Goals Electric Shaver Mechanic Goals Time Frame: Jul 10, 2019 Eating (FIM): 6 Grooming(FIM): 5 Bathing(FIM): 5 Upper Body Dressing(FIM): 5 Lower Body Dressing(FIM): 5 Toileting(FIM): 5 Toilet/Commode Transfer(FIM): 5 Shower Transfer(FIM): 5 Additional Goals: 1-Demonstrate ADL Tasks, 2-Verbalize Understanding, 3-ImproveStrength/Bernie 1=Demonstrate adherence to instructed precautions during ADL tasks. 2=Patient will verbalize/demonstrate understanding of assistive devices/modifications for ADL. 3=Patient will improve strength/tolerance for activity to enable patient to perform ADL's. OT Education/Plan Problem List/Assessment Assessment: Decreased Safety Aware, Dependent Transfers, Impaired Self-Care Skills Pt would benefit from skilled OT to increase her indep in basic self care to all ow her to safely return home after hospitalization. Discharge Recommendations Plan/Recommendations: Continue POC Treatment Plan/Plan of Care Treatment,Training & Education: Yes Patient would benefit from OT for education, treatment and training to promote independence in ADL's, mobility, safety and/or upper extremity function for ADL's. Plan of Care: ADL Retraining, Functional Mobility, UE Funct Exercise/Act Treatment Duration: Jul 10, 2019 Frequency: 5 times per week Estimated Hrs Per Day: .25 hour per day Agreement: Yes Rehab Potential: Fair Time/GCodes Start Time: 09:55 Stop Time: 10:00 Total Time Billed (hr/min): 5 Billed Treatment Time visit, evaluation low intensity 5 minutes GRAYSON PARKS OT Jul 03, 2019 10:27
--- NOTE | 2019-07-03 11:57 | History & Physical-Hospitalist ---
History of Present Illness HPI/Chief Complaint Chief complaint: Respiratory failure History of present illness: This is a 58-year-old white female clinic patient of [facility] who presented to the ER with altered mental status and required intubation. Her drug screen was positive for methamphetamines and barbiturates she does take barbiturates for her seizure disorder. Dr. Balderrama was able to extubate without difficulty today and now she is on 2 L of nasal cannula oxygen. Patient feels much better and ready to eat something but she can't see with Dr. regalado so she will need help with the menu and ordering. Patient denies any pain right now. Date Seen 07/03/19 Time Seen by a Provider: 10:00 Attending Physician Deepika Valdovinos DO [facility] [place],[facility] Referring Physician Date of Admission Jul 02, 2019 at 14:23 Home Medications & Allergies Home Medications Reviewed patient Home Medication Reconciliation performed by pharmacy medication reconciliations general maintenance technician and/or nursing. Patients Allergies have been reviewed. Allergies Allergies Coded Allergies nitrous oxide (Verified Allergy, Unknown, 06/08/07) Past Rmoidcb-Grqqjk-Jqfhko Hx Past Med/Social Hx: Reviewed Nursing Past Med/Soc Hx, Reviewed and Corrections made Patient Social History Marrital Status: single Employed/Student: unemployed Alcohol Use: Denies Use Recreational Drug Use: Yes (METH) Drug of Choice: HX OF IV METH USE Smoking Status: Current Everyday Smoker Type Used: Cigarettes 2nd Hand Smoke Exposure: Yes Recent Foreign Travel: No Contact w/other who traveled: No Recent Hopitalizations: No Recent Infectious Disease Expo: No Immunizations Up To Date Tetanus Booster (TDap): Less than 5yrs Pediatric: No Date of Pneumonia Vaccine: Jul 13, 2012 Date of Influenza Vaccine: Jul 28, 2018 Seasonal Allergies Seasonal Allergies: No Past Medical History Surgeries: Abdominal, Hysterectomy, Oophorectomy Currently Using CPAP: No Currently Using BIPAP: No Cardiac: Hypertension, Valvular Heart Disease Neurological: Seizure Disorder, Stroke 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: No Sexually Transmitted Disease: No HIV/AIDS: No Female 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 Hysterectomy Genitourinary: Kidney Infection, Bladder Infection, Kidney Stones, Renal Failure, UTI-Chronic Gastrointestinal: Gastroesophageal Reflux Musculoskeletal: Arthritis, Chronic Back Pain Loss of Vision: Denies Hearing Impairment: Denies Cancer: Cervical Psychosocial: Anxiety, Bipolar, Depression History of Blood Disorders: Yes (ANEMIA) Adverse Reaction to Blood New: No Family History Abdominal aortic aneurysm 03 FATHER Alcoholism 03 FATHER 03 MOTHER 09 SISTER 09 SISTER Cancer 03 FATHER Cataract 03 FATHER 03 MOTHER Chest pain 03 MOTHER Family history: Diabetes mellitus 03 MOTHER Family history: Hypertension 03 MOTHER Family history: Thyroid disorder 03 MOTHER Headache 09 SISTER Heart disease 03 MOTHER History of drug abuse 03 FATHER 09 SISTER Myocardial infarction 03 MOTHER No Family History of: Isael's disease Aphasia Cancer of colon Congenital heart disease Congestive heart failure Cystic fibrosis Dementia Dysphagia Family history: Allergy Family history: Alzheimer's disease Family history: Arthritis Family history: Asthma Family history: Breast disease Family history: Cardiovascular disease Family history: Coronary thrombosis Family history: Gastrointestinal disease Family history: Glaucoma Family history: Osteoporosis Hearing loss Hereditary disease History of - anemia History of - disorder History of - respiratory disease Human immunodeficiency virus (HIV) seropositivity Hypercholesterolemia Infertile Kidney disease Malignant neoplasm of lung Parkinson's disease Prostate cancer Psychotic disorder Seizure disorder Stroke Tuberculosis Visual impairment Diabetes Review of Systems Constitutional: see HPI EENTM: no symptoms reported Respiratory: dyspnea on exertion Psychiatric/Neurological: Seizure Physical Exam Physical Exam Vital Signs Vital Signs - First Documented 07/02/19 07/02/19 10:45 15:58 Temp 35.8 Pulse 57 Resp 30 B/P (MAP) 92/57 (69) Pulse Ox 96 O2 Delivery Nasal Cannula O2 Flow Rate 2.00 FiO2 50 Capillary Refill : Less Than 3 Seconds Height, Weight, BMI Height: 5'3.00" Weight: 154lbs. 8.0oz. 70.651277jj; 32.00 BMI Method:Stated General Appearance: No Apparent Distress, WD/WN, Anxious, Chronically ill Eyes: Right Eye Normal Inspection, Right Eye PERRL HEENT: PERRL/EOMI, Normal ENT Inspection, Pharynx Normal, Moist Mucous Membranes Neck: Full Range of Motion, Normal Inspection, Non Tender Respiratory: Chest Non Tender, Lungs Clear, Normal Breath Sounds, No Accessory Muscle Use, No Respiratory Distress Cardiovascular: Regular Rate, Rhythm, No Edema, No Gallop, No JVD, No Murmur, Normal Peripheral Pulses Gastrointestinal: Normal Bowel Sounds, No Organomegaly, No Pulsatile Mass, Non Tender, Soft Back: Normal Inspection, No CVA Tenderness, No Vertebral Tenderness Extremity: Normal Capillary Refill, Normal Inspection, Normal Range of Motion, Non Tender, No Calf Tenderness, No Pedal Edema Neurologic/Psychiatric: Alert, Oriented x3, No Motor/Sensory Deficits, Normal Mood/Affect Skin: Normal Color, Warm/Dry Lymphatic: No Adenopathy Results Results/Procedures Labs Laboratory Tests 07/02/19 11:30 07/03/19 03:25 Patient resulted labs reviewed. Assessment/Plan Admission Diagnosis Assessment: Acute respiratory failure requiring intubation now extubated successfully under Dr. Balderrama's expertise Seizure disorder Methamphetamine use Plan: Transfer to fourth floor Oxygen by nasal cannula Home meds Admission Status: Inpatient Order (span 2 midnights) Reason for Inpatient Admission: Respiratory failure which required intubation will require 3 days Diagnosis/Problems Diagnosis/Problems (1) Altered mental status Status: Acute Qualifiers: Altered mental status type: unspecified Qualified Codes: R41.82 - Altered mental status, unspecified (2) Methamphetamine use Status: Acute Clinical Quality Measures DVT/VTE Risk/Contraindication: Risk Factor Score Per Nursin RFS Level Per Nursing on Admit: 4+=Very High DEEPIKA VALDOVINOS DO Jul 03, 2019 11:57
--- NOTE | 2019-07-03 12:56 | NUR ---
0715 PT SITTING UP IN BED TRASHING AROUNDJAD RT HAD THIS RN NOTIFY DR COVINGTON, DR COVINGTON IN PT'S ROOM AND ORDERS TO EXTUBATE RECEIVED. PT EXTUBATED BY RT AND PLACED ON 6 LITERS PER NC, SA02 NOTED TO BE 95-96% PT ABLE TO FOLLOW COMMANDS. CALL LIGHT WITHIN REACH, WILL CONTINUE TO MONITOR.
--- NOTE | 2019-07-03 15:45 | NUR ---
RECEIVED REPORT FROM ELLIOTT SALDIVAR, RECEIVED PATIENT FROM ICU PER W/C, WRAY PATENT WITH KRISTA COLOR URINE, IV SITE WITHOUT REDNESS OR SWELLING TO RIGHT SIDE NECK, O2 ON PER NC AT 2 LITERS, BED RAILS PADDED, BED ALARM ON, CALL LIGHT WITHIN REACH, ASSISTED TO BATHROOM WITH WALKER, UNSTABLE ON FEET, LARGE BM.
[2019-07-03] MEDS: ENOXAPARIN 30 MG/0.3 ML (LOVENOX) SYR SC SCH (17:54)
[2019-07-03 20:33] LABS: CALCIUM 7.2 MG/DL (8.5-10.1); CREATININE SERUM 1.57 MG/DL (0.60-1.30); POTASSIUM 3.7 MMOL/L (3.6-5.0)
--- NOTE | 2019-07-04 00:25 | NUR ---
PATIENT B/P 210/. DR VALDOVINOS NOTIFIED. DR ORDERED TO GIVE PO METOPROLOL 100MG, PO COREG 12.5MG LISTED ON RECONCILE MEDS, AND PO NORVASC 5MG AT THIS TIME. WILL CONTINUE TO MONITOR
[2019-07-04 00:37] VITALS: BP 189/96
[2019-07-04] MEDS ORDERED: amLODIPine 5 MG (NORVASC) TAB PO ONE (00:45)
[2019-07-04] MEDS ORDERED: meTOprolol SUCCINATE 100 MG (TOPROL XL) TAB PO ONE (00:45)
[2019-07-04] MEDS ORDERED: CARVEDILOL 12.5 MG (COREG) TABLET PO ONE (00:45)
[2019-07-04] MEDS: NS IV 1000 ML 1,000 ML IV SCH (00:53)
[2019-07-04 04:02] VITALS: BP 183/100
--- NOTE | 2019-07-04 07:33 | Pulmonary Progress Note ---
Subjective Time Seen by a Provider: 07:32 Subjective/Events-last exam No complications noted. Sepsis Event Evaluation Height, Weight, BMI Height: 5'3.00" Weight: 164lbs. 8.0oz. 74.343778le; 32.00 BMI Method:Stated Focused Exam Lactate Level 07/02/19 11:30: Lactic Acid Level 0.63 07/03/19 07:45: Lactic Acid Level 0.58 Exam Exam Vital Signs Date Time Temp Pulse Resp B/P (MAP) Pulse Ox O2 Delivery O2 Flow Rate FiO2 07/04/19 07:14 Nasal Cannula 2.00 07/04/19 04:02 36.7 76 18 183/100 (127) 99 Nasal Cannula 2.00 07/04/19 00:37 37.4 97 22 189/96 (127) 96 Nasal Cannula 2.00 07/03/19 20:05 Nasal Cannula 2.00 07/03/19 20:00 37.0 92 18 163/89 (113) 96 Nasal Cannula 2.00 07/03/19 17:38 100 Nasal Cannula 2.00 07/03/19 16:00 37.4 100 18 167/79 (108) 96 Nasal Cannula 2.00 07/03/19 15:00 97 22 118/87 (97) 93 Nasal Cannula 2.00 07/03/19 14:00 82 9 128/69 (88) 92 Nasal Cannula 2.00 07/03/19 13:00 85 8 127/103 (111) 91 Nasal Cannula 2.00 07/03/19 12:48 100 Nasal Cannula 2.00 07/03/19 12:26 80 07/03/19 12:00 90 41 99/86 (90) Nasal Cannula 2.00 07/03/19 12:00 36.8 07/03/19 11:00 80 16 140/67 (91) Nasal Cannula 2.00 07/03/19 10:12 Nasal Cannula 2.00 07/03/19 10:00 72 12 144/96 (112) 100 Nasal Cannula 6.00 07/03/19 09:00 68 11 137/78 (97) 100 Nasal Cannula 6.00 07/03/19 08:00 65 16 82/54 (63) 93 Nasal Cannula 6.00 07/03/19 08:00 100 Nasal Cannula 2.00 I & O 07/04/19 07:00 Intake Total 4254 ml Output Total 3665 ml Balance 589 ml Height & Weight Height: 5'3.00" Weight: 164lbs. 8.0oz. 74.785743zz; 32.00 BMI Method:Stated General Appearance: No Apparent Distress, WD/WN, Anxious, Chronically ill HEENT: PERRL/EOMI, Normal ENT Inspection, Pharynx Normal, Moist Mucous Membranes Neck: Full Range of Motion, Normal Inspection, Non Tender Respiratory: Chest Non Tender, Lungs Clear, Normal Breath Sounds, No Accessory Muscle Use, No Respiratory Distress Cardiovascular: Regular Rate, Rhythm, No Edema, No Gallop, No JVD, No Murmur, Normal Peripheral Pulses Capillary Refill: Less Than 3 Seconds Extremity: Normal Capillary Refill, Normal Inspection, Normal Range of Motion, Non Tender, No Calf Tenderness, No Pedal Edema Neurologic/Psychiatric: Alert, Oriented x3, No Motor/Sensory Deficits, Normal Mood/Affect Skin: Normal Color, Warm/Dry Lymphatic: No Adenopathy Results Lab Laboratory Tests 07/02/19 11:30 07/03/19 03:25 07/03/19 20:00 Assessment/Plan Assessment/Plan Acute respiratory failure secondary to OD -PT is doing well post extubation -Titrate 02 to d/c Methamphetamine/UDS -Education I am going to sign off please call with any questions. RICARDA COVINGTON DO Jul 04, 2019 07:33
[2019-07-04] MEDS ORDERED: LACTATED RINGERS 1,000 ML IV SCH (07:45)
[2019-07-04 08:00] VITALS: BP 186/90
[2019-07-04] MEDS ORDERED: HYDR-700 PO (08:14)
[2019-07-04] MEDS ORDERED: PRAZ1CAP2 PO (08:15)
[2019-07-04] MEDS ORDERED: RANI-515 PO (08:17)
[2019-07-04] MEDS ORDERED: HYDR-3924 PO (08:19)
[2019-07-04] MEDS ORDERED: CYCL10TA9 PO (08:23)
[2019-07-04] MEDS: cefTRIAXone 1,000 MG/SWFI 10 ML IV PUSH IV SCH ×2 (09:28)
--- NOTE | 2019-07-04 11:06 | Progress Note - Hospitalist ---
Subjective HPI/CC On Admission Date Seen by Provider: Jul 04, 2019 Time Seen by Provider: 09:45 Chief complaint: Respiratory failure History of present illness: This is a 58-year-old white female clinic patient of [facility] who presented to the ER with altered mental status and required intubation. Her drug screen was positive for methamphetamines and barbiturates she does take barbiturates for her seizure disorder. Dr. Balderrama was able to extubate without difficulty today and now she is on 2 L of nasal cannula oxygen. Patient feels much better and ready to eat something but she can't see with Dr. regalado so she will need help with the menu and ordering. Patient denies any pain right now. Subjective/Events-last exam Patient doing much better Elevated blood pressure prompted multiple meds given last night and through the morning Creatinine 1.57 Home meds have been restarted and some of them had to be corrected Hep locking IV fluid We will have PT and OT see her Likely close to discharge Bowels are moving Eating and drinking pretty well Denies any pain Review of Systems General: Fatigue Pulmonary: Cough Focused Exam Lactate Level 07/02/19 11:30: Lactic Acid Level 0.63 07/03/19 07:45: Lactic Acid Level 0.58 Objective Exam Vital Signs Vital Signs Date Time Temp Pulse Resp B/P (MAP) Pulse Ox O2 Delivery O2 Flow Rate FiO2 07/04/19 16:00 37.0 79 18 184/82 (116) 99 Nasal Cannula 2.00 07/03/19 04:00 40 Capillary Refill : Less Than 3 Seconds General Appearance: No Apparent Distress, WD/WN, Chronically ill Neck: Full Range of Motion, Normal Inspection, Non Tender, Supple, Carotid Bruit Respiratory: Chest Non Tender, Lungs Clear, Normal Breath Sounds, No Accessory Muscle Use, No Respiratory Distress Cardiovascular: Regular Rate, Rhythm, No Edema, No Gallop, No JVD, No Murmur, Normal Peripheral Pulses Neurologic/Psychiatric: Alert, Oriented x3, No Motor/Sensory Deficits, Normal M ood/Affect Results/Procedures Lab Laboratory Tests 07/03/19 20:00 Patient resulted labs reviewed. Assessment/Plan Assessment and Plan Assess & Plan/Chief Complaint Assessment: Acute respiratory failure requiring intubation now extubated successfully under Dr. Balderrama's expertise Seizure disorder Methamphetamine use Plan: Transfered to fourth floor Oxygen by nasal cannula Home meds PT/OT BP management Diagnosis/Problems Diagnosis/Problems (1) Altered mental status Status: Acute Qualifiers: Altered mental status type: unspecified Qualified Codes: R41.82 - Altered mental status, unspecified (2) Methamphetamine use Status: Acute Clinical Quality Measures DVT/VTE Risk/Contraindication: Risk Factor Score Per Nursin RFS Level Per Nursing on Admit: 4+=Very High RAJAN VALDOVINOS DO Jul 04, 2019 11:06
[2019-07-04] MEDS ORDERED: amLODIPine 10 MG (NORVASC) TAB PO ONE (11:15)
[2019-07-04] MEDS ORDERED: hydrOXYzine (VISTARIL/ATARAX) 25 MG capsule/tablet PO PRN (11:15)
[2019-07-04] MEDS ORDERED: cloNIDine 0.1 MG (CATAPRES) TAB PO PRN (11:15)
[2019-07-04 12:00] VITALS: BP 94/46
[2019-07-04] MEDS: LOSARTAN 100 MG (COZAAR) TABLET PO SCH (12:16)
[2019-07-04] MEDS: cloNIDine 0.2 MG (CATAPRES) TAB PO SCH ×2 (12:16→20:11)
[2019-07-04] MEDS: PHENobarbital 97.2 MG (1-1/2 GRAIN) TABLET PO SCH (12:16)
[2019-07-04] MEDS: SPIRONOLACTONE 25 MG (ALDACTONE) TAB PO SCH (12:17)
[2019-07-04] MEDS: OXcarbazepine (TRILEPTAL) 300 MG TAB PO SCH ×2 (12:17→20:12)
[2019-07-04] MEDS: CYCLOBENZAPRINE 10 MG (FLEXERIL) TAB PO SCH ×2 (12:17→20:11)
[2019-07-04] MEDS: hydrALAZINE (APRESOLINE) 25 MG TAB PO SCH ×2 (12:18→20:12)
[2019-07-04] MEDS: meTOprolol SUCCINATE 100 MG (TOPROL XL) TAB PO SCH (12:18)
[2019-07-04 16:00] VITALS: BP 184/82
[2019-07-04] MEDS: ENOXAPARIN 30 MG/0.3 ML (LOVENOX) SYR SC SCH (16:45)
[2019-07-04 20:00] VITALS: BP 193/115
[2019-07-04] MEDS ORDERED: FAMOTIDINE 20 MG (PEPCID) TABLET PO SCH (21:00)
[2019-07-04] MEDS ORDERED: NON-FORMULARY MEDICATION 1 EA EA (Prazosin HCl 1 MG) PO SCH (21:00)
[2019-07-05] VITALS: BP 178/92
[2019-07-05 03:19] VITALS: BP 183/103
[2019-07-05 06:13] LABS: BASOPHILS % (AUTO) 0 % (0-10); EOSINOPHILS # (AUTO) 0.3 10^3/uL (0.0-0.3); EOSINOPHILS % (AUTO) 5 % (0-10); HEMATOCRIT 36 % (35-52); HEMOGLOBIN 11.3 G/DL (11.5-16.0); LYMPHOCYTES # (AUTO) 2.2 X 10^3 (1.0-4.0); LYMPHOCYTES % (AUTO) 29 % (12-44); MEAN CORPUSCULAR HEMOGLOBIN 29 PG (25-34); MEAN CORPUSCULAR HGB CONC 32 G/DL (32-36); MEAN CORPUSCULAR VOLUME 91 FL (80-99); MEAN PLATELET VOLUME 10.4 FL (7.4-10.4); MONOCYTES # (AUTO) 0.4 X 10^3 (0.0-1.0); MONOCYTES % (AUTO) 6 % (0-12); NEUTROPHILS # (AUTO) 4.6 X 10^3 (1.8-7.8); NEUTROPHILS % (AUTO) 61 % (42-75); PLATELET COUNT 322 10^3/uL (130-400); RED CELL DISTRIBUTION WIDTH 15.5 % (10.0-14.5); WHITE BLOOD COUNT 7.6 10^3/uL (4.3-11.0)
[2019-07-05 06:31] LABS: ALBUMIN 3.6 GM/DL (3.2-4.5); BILIRUBIN,TOTAL 0.2 MG/DL (0.1-1.0); CALCIUM 8.5 MG/DL (8.5-10.1); CREATININE SERUM 1.19 MG/DL (0.60-1.30); POTASSIUM 4.5 MMOL/L (3.6-5.0); TOTAL PROTEIN 6.9 GM/DL (6.4-8.2)
--- NOTE | 2019-07-05 07:05 | Pulmonary Progress Note ---
Subjective Date Seen by a Provider: Jul 05, 2019 Time Seen by a Provider: 06:59 Subjective/Events-last exam patient says that she is feeling better. she denies fever, chills, headache, nausea, vomiting, SOB, abdominal pain, numbness, tingling, and malaise. She admits to cough and chest pain. She did have RUQ pain upon palpation Sepsis Event Evaluation Height, Weight, BMI Height: 5'3.00" Weight: 155lbs. 8.0oz. 70.691482jp; 32.00 BMI Method:Stated Focused Exam Lactate Level 07/02/19 11:30: Lactic Acid Level 0.63 07/03/19 07:45: Lactic Acid Level 0.58 Exam Exam Vital Signs Date Time Temp Pulse Resp B/P (MAP) Pulse Ox O2 Delivery O2 Flow Rate FiO2 07/05/19 03:19 36.9 76 18 183/103 (129) 98 Room Air 07/05/19 00:00 36.5 84 18 178/92 (120) 95 Room Air 07/04/19 20:10 Nasal Cannula 2.00 07/04/19 20:00 37.1 92 18 193/115 (141) 100 Nasal Cannula 2.00 07/04/19 16:00 37.0 79 18 184/82 (116) 99 Nasal Cannula 2.00 07/04/19 12:00 36.3 89 20 94/46 (62) 93 Nasal Cannula 2.00 07/04/19 08:00 100 Nasal Cannula 2.00 07/04/19 08:00 37.2 84 22 186/90 (122) 93 Nasal Cannula 2.00 07/04/19 07:14 Nasal Cannula 2.00 I & O0 07/05/19 07:00 Intake Total 5372 ml Output Total 8000 ml Balance -2628 ml Height & Weight Height: 5'3.00" Weight: 155lbs. 8.0oz. 70.832751iv; 32.00 BMI Method:Stated General Appearance: No Apparent Distress, WD/WN, Chronically ill HEENT: PERRL/EOMI, Normal ENT Inspection, Pharynx Normal, Moist Mucous Membra mya Neck: Full Range of Motion, Normal Inspection, Non Tender, Supple, Carotid Bruit Respiratory: Chest Non Tender, Lungs Clear, Normal Breath Sounds, No Accessory Muscle Use, No Respiratory Distress Cardiovascular: No Edema, No Gallop, No JVD, No Murmur, Normal Peripheral Pulses, Tachycardia Capillary Refill: Less Than 3 Seconds Peripheral Pulses: 2+ Dorsalis Pedis (R), 2+ Left Dors-Pedis (L), 2+ Radial Pulses (R), 2+ Radial Pulses (L) Gastrointestinal: guarding, tenderness (Right upper quadrant ) Extremity: Normal Capillary Refill, Normal Inspection, Normal Range of Motion, Non Tender, No Calf Tenderness, No Pedal Edema Neurologic/Psychiatric: Alert, Oriented x3, No Motor/Sensory Deficits, Normal Mood/Affect Skin: Normal Color, Warm/Dry Lymphatic: No Adenopathy Results Lab Laboratory Tests 07/03/19 20:00 07/05/19 06:00 Assessment/Plan Assessment/Plan Acute respiratory failure secondary to OD -PT is doing well post extubation -Titrate 02 to d/c UTI - urine culture positive for klebsiella MRSA - ET tube culture positive for Staph Aureus - nasal swab positive for MRSA Methamphetamine/UDS -Education JEZ DIXON,MED STUDENT Jul 05, 2019 07:05
[2019-07-05 08:00] VITALS: BP 172/109
[2019-07-05] MEDS: cefTRIAXone 1,000 MG/SWFI 10 ML IV PUSH IV SCH ×2 (08:36)
[2019-07-05] MEDS: meTOprolol SUCCINATE 100 MG (TOPROL XL) TAB PO SCH (08:36)
[2019-07-05] MEDS: cloNIDine 0.2 MG (CATAPRES) TAB PO SCH (08:36)
[2019-07-05] MEDS: SPIRONOLACTONE 25 MG (ALDACTONE) TAB PO SCH (08:36)
[2019-07-05] MEDS: LOSARTAN 100 MG (COZAAR) TABLET PO SCH (08:36)
[2019-07-05] MEDS: PHENobarbital 97.2 MG (1-1/2 GRAIN) TABLET PO SCH (08:36)
[2019-07-05] MEDS: CYCLOBENZAPRINE 10 MG (FLEXERIL) TAB PO SCH (08:36)
[2019-07-05] MEDS: OXcarbazepine (TRILEPTAL) 300 MG TAB PO SCH (08:37)
[2019-07-05] MEDS: hydrALAZINE (APRESOLINE) 25 MG TAB PO SCH ×2 (08:37→12:52)
[2019-07-05] MEDS ORDERED: amLODIPine 10 MG (NORVASC) TAB PO SCH (09:00)
--- NOTE | 2019-07-05 09:20 | Physical Therapy Evaluation ---
PT Evaluation-General Medical Diagnosis Admission Date Jul 02, 2019 at 14:23 Medical Diagnosis: AMS, confusion, resp failure Onset Date: Jul 02, 2019 Therapy Diagnosis Therapy Diagnosis: debility/weakness Height/Weight Height (Feet): 5 Height (Inches): 3.00 Weight (Pounds): 155 Weight (Ounces): 8.0 Precautions Precautions/Isolations: Seizure, Fall Prevention, Standard Precautions Referral Physician: Jorge Reason for Referral: Evaluation/Treatment Medical History Pertinent Medical History: Arthritis, COPD, CVA, GERD, HTN, Smoking Additional Medical History drug use Current History EMS secondary to welfare check resulting in patient being found AMS Reviewed History: Yes Social History Home: Apartment Current Living Status: Alone Entry Into Home: Level Entry Prior/Core FIM Prior Level of Function Therapy Code Descriptions/Definitions Functional [place] Measure: 0=Not Assessed/NA 4=Minimal Assistance 1=Total Assistance 5=Supervision or Setup 2=Maximal Assistance 6=Modified [place] 3=Moderate Assistance 7=Complete [place] Therapy Quality Codes: 6 Independent with activity with or without an assistive device 5 Patient requires set up or clean up by helper. Patient completes activity by themselves 4 Supervision or touching assist (CGA). Elizabeth provide cues , steadying assist 3 The helper provides less than half the effort to complete the activity 2 The helper provides more than half the effort to complete the activity 1 Dependent. The helper does all the effort to complete an activity 7 Patient refused to complete or attempt activity 9 The patient did not perform the activity before the current illness or injury 88 Not attempted due to Medical conditions or safety concerns Functional Abilities and Goals: Independent: Patient completed the activities by him/herself, with or without an assistive device, with no assistance from a helper. Needed Some Help: Patient needed partial assistance from another person to complete activities. Dependent: A helper completed the activities for the patient. Unknown: Not Applicable: Bed Mobility: 7 Transfers (B,C,W/C) (FIM): 7 Gait: 6 Indoor Mobility (Ambulation): Independent Prior Devices Use: Walker PT Evaluation-Current Subjective Patient agrees to PT. Pain Numeric Pain Scale: 0-No Pain Location: No Pain Reported Objective Patient Orientation: Person, Time, Situation Problem Solving: Fair Attachments: [place] Catheter ROM/Strength ROM Lower Extremities bilateral LE WFL Strength Lower Extremities 4/5 grossly bilateral LE Integumentary/Posture Integumentary refer to nursing notes Bladder Incontinence: [place] Cath Posture WFL Neuromuscular (Tone, Coordination, Reflexes) grossly intact Sensory Vision: Functional Hearing: Functional Sensation Right Lower Extremit: Intact Sensation Left Lower Extremity: Intact Transfers Therapy Code Descriptions/Definitions Functional [place] Measure: 0=Not Assessed/NA 4=Minimal Assistance 1=Total Assistance 5=Supervision or Setup 2=Maximal Assistance 6=Modified [place] 3=Moderate Assistance 7=Complete [place] Transfers (B, C, W/C) (FIM): 6 Scootin Rollin Supine to/from Sit: 7 Sit to/from Stand: 6 Gait Mode of Locomotion: Walk Anticipated Mode of Locomotion: Walk Gait (FIM): 6 Distance (FIM): 3=150 ft Distance: 250' Gait Level of Assist: 6 Gait Assistive Device: FWW Comments/Gait Description noted left LE deviation due to old CVA and leg length Balance Sitting Static: Normal Sitting Dynamic: Normal Standing Static: Normal Standing Dynamic: Normal Assessment/Needs 58 y.o. female, will benefit from short term skilled PT to address functional mobility to ensure safe return to home with [employer] workers to follow. Patient report she desires to return to home this week. Rehab Potential: Fair PT Short Term Goals Short Term Goals Time Frame: Jul 09, 2019 Transfers (B,C,W/C) (FIM): 6 Distance (FIM): 3=150 ft Gait Level of Assist: 6 Gait Assistive Device: FWW PT Plan Treatment/Plan Treatment Plan: Continue Plan of Care Treatment Plan: Education, Functional Activity Bernie, Functional Strength, Gait, Safety, Therapeutic Exercise, Transfers Treatment Duration: Jul 09, 2019 Frequency: 5 times per week Estimated Hrs Per Day: .25 hour per day Patient and/or Family Agrees t: Yes Time/GCodes Time In: 835 Time Out: 846 Total Billed Treatment Time: 11 Total Billed Treatment 1 visit EVLowC 11 min ANURAG GENTILE PT Jul 05, 2019 09:20
--- NOTE | 2019-07-05 09:42 | NUR ---
prior to a.m. medications pulse was 86 b/p was 172/109.
--- NOTE | 2019-07-05 09:43 | NUR ---
SPOKE WITH PT, ALSO CALLED [facility] AND [facility] TO SPEAK WITH HER NURSE TO COMPLETE THE MED REC. PT WAS UNSURE OF HER MEDS THEREFORE I HAD [facility] FAX A MED LIST. THEN I HAD [facility] FAX A LIST AND SPOKE WITH A NURSE TO VERIFY ALL HER MEDS. I SPOKE WITH THE PT AND WHEN I MENTIONED THE NAMES SHE WAS UNSURE OF THEM BUT WHEN I SAID WHAT THEY WERE FOR SHE INDICATED THAT SHE TOOK THEM. DUE TO THESE CONDITIONS I HAVE COMPLETED THE MED REC TO THE BEST OF MY ABILITY. OTC MEDS: ACETAMINOPHEN 500M TABS Q 6 H PRN
[2019-07-05] MEDS ORDERED: METO-395 PO (09:52)
[2019-07-05] MEDS ORDERED: AMLO10TA7 PO (09:52)
--- NOTE | 2019-07-05 09:55 | Discharge Summary ---
Discharge Summary Hospital Course Was the Problem List Reviewed?: Yes Problems/Dx: (1) Altered mental status Status: Acute Qualifiers: Qualified Codes: R41.82 - Altered mental status, unspecified (2) Methamphetamine use Status: Acute Hospital Course Date of Admission: Jul 02, 2019 at 14:23 Admission Diagnosis : [facility] Date of Discharge: 07/05/19 Discharge Diagnosis: Altered mental status, respiratory failure requiring intubation with rapid extubation, methamphetamine use, seizure disorder, hypertension malignant type Hospital Course: Patient had an uncomplicated hospital course she was admitted from the ER intubated due to altered mental status with methamphetamines and her drug screen along with likely a seizure. She was stabilized moved to the floor home meds were restarted for malignant type hypertension and overall she did very well. Lungs were clear vitals remained stable labs remained stable and she was deemed stable for discharge after seeing physical therapy and she will have close follow-up with [facility]. Labs and Pending Lab Test: Laboratory Tests 07/05/19 06:00: White Blood Count 7.6, Red Blood Count 3.91L, Hemoglobin 11.3L, Hematocrit 36, Mean Corpuscular Volume 91, Mean Corpuscular Hemoglobin 29, Mean Corpuscular Hemoglobin Concent 32, Red Cell Distribution Width 15.5H, Platelet Count 322, Mean Platelet Volume 10.4, Neutrophils (%) (Auto) 61, Lymphocytes (%) (Auto) 29, Monocytes (%) (Auto) 6, Eosinophils (%) (Auto) 5, Basophils (%) (Auto) 0, Neutrophils # (Auto) 4.6, Lymphocytes # (Auto) 2.2, Monocytes # (Auto) 0.4, Eosinophils # (Auto) 0.3, Basophils # (Auto) 0.0, Sodium Level 140, Potassium Level 4.5, Chloride Level 107, Carbon Dioxide Level 23, Anion Gap 10, Blood Urea Nitrogen 24H, Creatinine 1.19, Estimat Glomerular Filtration Rate 47, BUN/Creatinine Ratio 20, Glucose Level 90, Calcium Level 8.5, Corrected Calcium 8.8, Total Bilirubin 0.2, Aspartate Amino Transf (AST/SGOT) 16, Alanine Aminotransferase (ALT/SGPT) 23, Alkaline Phosphatase 60, Total Protein 6.9, Albumin 3.6 Microbiology 07/02/19 Blood Culture - Preliminary, Resulted No growth 07/02/19 MRSA Screen - Final, Complete 07/02/19 Urine Culture - Preliminary, Resulted Escherichia coli Klebsiella pneumoniae Susceptibility To Follow Home Meds Active Amlodipine Besylate 10 Mg Tablet 10 Mg PO DAILY Metoprolol Succinate 100 Mg Tab.er.24h 100 Mg PO DAILY Reported Cyclobenzaprine HCl 10 Mg Tablet 10 Mg PO BID Hydralazine HCl 50 Mg Tablet 50 Mg PO TID Acid Staker Surveying (RANITIDINE) (Ranitidine HCl) 150 Mg Tablet 150 Mg PO HS Prazosin HCl 1 Mg Capsule 1 Mg PO HS Hydroxyzine HCl 25 Mg Tablet 25 Mg PO TID PRN Aldactone (Spironolactone) 25 Mg Tablet 25 Mg PO DAILY Clonidine HCl 0.2 Mg Tablet 0.2 Mg PO BID Losartan Potassium 100 Mg Tablet 100 Mg PO DAILY Tylenol Extra Strength (Acetaminophen) 500 Mg Tablet 1,000 Mg PO Q6H PRN Phenobarbital 97.2 Mg Tablet 97.2 Mg PO DAILY Oxcarbazepine 600 Mg Tablet 600 Mg PO BID Assessment/Pt Instructions [facility] as scheduled Discharge Planning: <30 minutes discharge planning Discharge Instructions Discharge Diet: No Restrictions Activity as Tolerated: Yes Discharge Physical Examination Vital Signs Vital Signs Date Time Temp Pulse Resp B/P (MAP) Pulse Ox O2 Delivery O2 Flow Rate FiO2 07/05/19 08:00 98 Room Air 07/05/19 08:00 36.5 86 20 172/109 (130) 07/05/19 07:25 1.00 07/03/19 04:00 40 General Appearance: No Apparent Distress, WD/WN Respiratory: Chest Non Tender, Lungs Clear, Normal Breath Sounds, No Accessory Muscle Use, No Respiratory Distress Cardiovascular: Regular Rate, Rhythm, No Edema, No Gallop, No JVD, No Murmur, Normal Peripheral Pulses Neurologic/Psychiatric: Alert, Oriented x3, No Motor/Sensory Deficits, Normal Mood/Affect Allergies: Coded Allergies: nitrous oxide (Verified Allergy, Unknown, 06/08/07) Discharge Summary Date of Admission Jul 02, 2019 at 14:23 Date of Discharge Discharge Date: Jul 05, 2019 Admission Diagnosis Assessment: Acute respiratory failure requiring intubation now extubated successfully under Dr. Balderrama's expertise Seizure disorder Methamphetamine use Plan: Transfer to fourth floor Oxygen by nasal cannula Home meds Discharge Diagnosis Assessment: Acute respiratory failure requiring intubation now extubated successfully under Dr. Balderrama's expertise Seizure disorder Methamphetamine use Plan: Transfered to fourth floor Oxygen by nasal cannula Home meds PT/OT BP management (1) Altered mental status Status: Acute Qualifiers: Qualified Codes: R41.82 - Altered mental status, unspecified (2) Methamphetamine use Status: Acute Clinical Quality Measures DVT/VTE Risk/Contraindication: Risk Factor Score Per Nursin RFS Level Per Nursing on Admit: 4+=Very High RAJAN VALDOVINOS DO Jul 05, 2019 09:55
[2019-07-05 12:00] VITALS: BP 159/86
--- NOTE | 2019-07-05 12:48 | NUR ---
b/p was 159/86 with a pulse of 80 bpm prior to giving hydralazine.
[2019-07-05 15:12] VITALS: BP 159/86
[2019-07-05] MEDS ORDERED: ENOXAPARIN 40 MG/0.4 ML (LOVENOX) SYR SC SCH (16:30)
--- NOTE | 2019-07-06 09:13 | NUR ---
CM/ALANNA. Received call from [facility], regarding patient status. Apparently a call of concern was placed with this agency and they were trying to learn of her whereabouts for followup. Caller informed patient had discharged to home, and that agency could contact HIM with proof of open case re further information.
[2019-07-10] MEDS ORDERED: ASPI-999 PO (13:10)
== END 2019-07-05 15:35 | disposition home or self-care (01) | DRG 917 ==
LOC: EDUNIT# 10:46 → ER 10:49 → ICU 14:23 → 4TH 07-03 15:25
PROVIDERS: ADMIT Internal Medicine; ATTEND Internal Medicine
PROC: 5A1935Z Respiratory Ventilation, Less than 24 Consecutive Hours (ICD-10-PCS; principal; 2019-07-02)
PROC: 0BH17EZ Insertion of Endotracheal Airway into Trachea, Via Natural or Artificial Opening (ICD-10-PCS; 2019-07-02)
DX: T43.621A Poisoning by amphetamines, accidental (unintentional), initial encounter (principal); R41.82 Altered mental status, unspecified; J96.00 Acute respiratory failure, unspecified whether with hypoxia or hypercapnia; I95.9 Hypotension, unspecified; F15.90 Other stimulant use, unspecified, uncomplicated; F17.210 Nicotine dependence, cigarettes, uncomplicated; I10 Essential (primary) hypertension; J44.9 Chronic obstructive pulmonary disease, unspecified; I69.354 Hemiplegia and hemiparesis following cerebral infarction affecting left non-dominant side; N39.0 Urinary tract infection, site not specified; B96.1 Klebsiella pneumoniae [K. pneumoniae] as the cause of diseases classified elsewhere; Z22.322 Carrier or suspected carrier of Methicillin resistant Staphylococcus aureus; E87.2 Acidosis; E87.6 Hypokalemia; G40.909 Epilepsy, unspecified, not intractable, without status epilepticus; B19.20 Unspecified viral hepatitis C without hepatic coma; K21.9 Gastro-esophageal reflux disease without esophagitis; M19.91 Primary osteoarthritis, unspecified site; F41.9 Anxiety disorder, unspecified; F31.9 Bipolar disorder, unspecified; D64.9 Anemia, unspecified; I38 Endocarditis, valve unspecified; Z87.820 Personal history of traumatic brain injury; Z90.710 Acquired absence of both cervix and uterus; Z90.722 Acquired absence of ovaries, bilateral
CPT/HCPCS: 31500; 36415; 51702; 70450; 71045; 71250; 74176; 80048; 80053; 80306; 80320; 80329; 81000; 82140; 82805; 82962; 83605; 83735; 84100; 84478; 85007; 85025; 85027; 85610; 85730; 87040; 87070; 87077; 87081; 87088; 87186; 87205; 93005; 94002; 94003; 94760; 94799; 96361; 96374; 96375

== ENCOUNTER 2019-07-07 06:06 | Inpatient (IN) | payer MEDICAID ==
[~2019-07-07] VITALS: Ht 160 cm; Wt 71.2 kg
[~2019-07-07 06:06] MED LIST changes: +HYDR-700 PO; +PRAZ1CAP2 PO; +RANI-515 PO
[2019-07-07] MEDS ORDERED: ANTACID SUSP 30 ML UDC (MYLANTA) PO ONE (06:45)
[2019-07-07] MEDS ORDERED: LIDOCAINE 2% VISCOUS 15 ML UDC PO ONE (06:45)
[2019-07-07] MEDS ORDERED: ASPIRIN 81 MG CHEW (CHILDREN'S ASA) PO ONE (06:45)
--- NOTE | 2019-07-07 06:59 | ED Chest Pain ---
General Chief Complaint: Abdominal/GI Problems Stated Complaint: CP,ABD PAIN Source: patient Exam Limitations: no limitations (SANTHOSH SHAHID STUDENT) History of Present Illness Date Seen by Provider: Jul 07, 2019 Time Seen by Provider: 06:40 Initial Comments The patient is a 58 y/o woman who is here with a chief complaint of chest/abdominal pain. She reports initially that the chest and abdominal pain started last night and she currently rates the pain at 5-6/10. Upon further questioning she states that the chest pain has been present since she was extubated in the hospital on friday. The chest pain is constant and does not radiate. The abdominal pain started last night and she has also been experiencing profuse watery diarrhea. She describes the pain as crampy and localizes to the left lower quadrant. She denies nausea, vomiting, cough, shortness of breath, or fevers. Timing/Duration: 2-3 days Severity/Quality: moderate Location: substernal Radiation: no radiation (SANTHOSH SHAHID STUDENT) Timing/Duration: 2-3 days Severity/Quality: moderate Location: substernal, central Radiation: no radiation Activities at Onset: none Prior CP/Workup: cardiac cath, echocardiography, stress test ASA po MISSION COMMANDER: No NTG SL MISSION COMMANDER: No Associated Symptoms: No abdominal pain, No edema, No fever/chills, No nausea/vomiting, No shortness of breath; weakness (QUIN JONES MD) Allergies and Home Medications Allergies Coded Allergies: nitrous oxide (Verified Allergy, Unknown, 06/08/07) Home Medications Acetaminophen 500 Mg Tablet, 1,000 MG PO Q6H PRN for PAIN-MILD, (Reported) Amlodipine Besylate 10 Mg Tablet, 10 MG PO DAILY Prescribed by: RAJAN VALDOVINOS on 07/05/19 0952 Clonidine HCl 0.2 Mg Tablet, 0.2 MG PO BID, (Reported) Cyclobenzaprine HCl 10 Mg Tablet, 10 MG PO BID, (Reported) Hydralazine HCl 50 Mg Tablet, 50 MG PO TID, (Reported) Hydroxyzine HCl 25 Mg Tablet, 25 MG PO TID PRN for ANXIETY, (Reported) Losartan Potassium 100 Mg Tablet, 100 MG PO DAILY, (Reported) Metoprolol Succinate 100 Mg Tab.er.24h, 100 MG PO DAILY Prescribed by: RAJAN VALDOVINOS on 07/05/19 0952 Oxcarbazepine 600 Mg Tablet, 600 MG PO BID, (Reported) Phenobarbital 97.2 Mg Tablet, 97.2 MG PO DAILY, (Reported) Prazosin HCl 1 Mg Capsule, 1 MG PO HS, (Reported) Ranitidine HCl 150 Mg Tablet, 150 MG PO HS, (Reported) Spironolactone 25 Mg Tablet, 25 MG PO DAILY, (Reported) Patient Home Medication List Home Medication List Reviewed: Yes (QUIN JONES MD) Review of Systems Review of Systems Constitutional: No fever, No malaise EENTM: No Blurred Vision, No Double Vision Respiratory: Denies Cough, Denies Shortness of Air Cardiovascular: Chest Pain; Denies Palpitations Gastrointestinal: Abdomen Distended, Abdominal Pain; Denies Nausea, Denies Vomiting Genitourinary: Denies Frequency, Denies Urgency (SANTHOSH SHAHID) Constitutional: see HPI EENTM: No Symptoms Reported Respiratory: No Symptoms Reported Cardiovascular: See HPI, Chest Pain; Denies Edema Gastrointestinal: Abdominal Pain, Diarrhea Genitourinary: See HPI; Denies Burning Musculoskeletal: no symptoms reported, muscle pain, muscle twitching Skin: no symptoms reported (UQIN JONES MD) All Other Systems Reviewed Negative Unless Noted: Yes (QUIN JONES MD) Past Gglgfsk-Pidtqe-Nhykfv Hx Past Med/Social Hx: Reviewed Nursing Past Med/Soc Hx (QUIN JONES MD) Patient Social History Drug of Choice: HX OF IV METH USE Type Used: Cigarettes 2nd Hand Smoke Exposure: Yes Recent Foreign Travel: No Contact w/Someone Who Travel: No Recent Hopitalizations: No (SANTHOSH SHAHID STUDENT) Immunizations Up To Date Tetanus Booster (TDap): Less than 5yrs PED Vaccines UTD: No Date of Pneumonia Vaccine: Jul 13, 2012 Date of Influenza Vaccine: Jul 28, 2018 (SANTHOSH SHAHID) Seasonal Allergies Seasonal Allergies: No (SANTHOSH SHAHID) Past Medical History Surgeries: Yes (hernia repair, T&A, hysterectomy, bladder suspension, multi to left leg, ) Abdominal, Hysterectomy, Oophorectomy Respiratory: Yes (SUPPOSED TO WEAR O2 AT HS AT 2 1/2-3L AT HS AND PRN) COPD Currently Using CPAP: No Currently Using BIPAP: No Cardiac: Yes Hypertension, Valvular Heart Disease Neurological: Yes (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; CVA LEFT SIDE WEAKNESS, POOR BALANCE/USES WALKER) Seizure Disorder, Stroke 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 Disorders: No Female 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 Sexually Transmitted Disease: No HIV/AIDS: No Kidney Infection, Bladder Infection, Kidney Stones, Renal Failure, UTI-Chronic Gastrointestinal: Yes (CHRONIC ABDOMINAL PAIN COMPLAINT; GASTRITIS; HEPATITIS C) Gastroesophageal Reflux Musculoskeletal: Yes Arthritis, Chronic Back Pain Endocrine: No HEENT: No Loss of Vision: Denies Hearing Impairment: Denies Cancer: No Cervical Psychosocial: Yes (SUBSTANCE ABUSE) Anxiety, Bipolar, Depression Integumentary: No Blood Disorders: Yes (ANEMIA) Adverse Reaction/Blood Tranf: No (SANTHOSH SHAHID STUDENT) Family Medical History Reviewed Nursing Family Hx (QUIN JONES MD) Abdominal aortic aneurysm 03 FATHER Alcoholism 03 FATHER 03 MOTHER 09 SISTER 09 SISTER Cancer 03 FATHER Cataract 03 FATHER 03 MOTHER Chest pain 03 MOTHER Family history: Diabetes mellitus 03 MOTHER Family history: Hypertension 03 MOTHER Family history: Thyroid disorder 03 MOTHER Headache 09 SISTER Heart disease 03 MOTHER History of drug abuse 03 FATHER 09 SISTER Myocardial infarction 03 MOTHER No Family History of: Isael's disease Aphasia Cancer of colon Congenital heart disease Congestive heart failure Cystic fibrosis Dementia Dysphagia Family history: Allergy Family history: Alzheimer's disease Family history: Arthritis Family history: Asthma Family history: Breast disease Family history: Cardiovascular disease Family history: Coronary thrombosis Family history: Gastrointestinal disease Family history: Glaucoma Family history: Osteoporosis Hearing loss Hereditary disease History of - anemia History of - disorder History of - respiratory disease Human immunodeficiency virus (HIV) seropositivity Hypercholesterolemia Infertile Kidney disease Malignant neoplasm of lung Parkinson's disease Prostate cancer Psychotic disorder Seizure disorder Stroke Tuberculosis Visual impairment Diabetes (SANTHOSH SHAHID MED STUDENT) Physical Exam Vital Signs Vital Signs - First Documented 07/07/19 06:11 Temp 37.0 Pulse 89 Resp 20 B/P (MAP) 127/69 (88) O2 Delivery Room Air (QUIN JONES MD) Vital Signs Capillary Refill : (SANTHOSH SHAHID MED STUDENT) Height, Weight, BMI Height: 5'3.00" Weight: 155lbs. 8.0oz. 70.616938gx; 32.00 BMI Method:Stated General Appearance: No Apparent Distress, Anxious HEENT: PERRL/EOMI; No Photophobia Respiratory: Chest Non Tender, Crackles Cardiovascular: Regular Rate, Rhythm, No Murmur Gastrointestinal: Normal Bowel Sounds, Distended, Tenderness Extremity: Normal Capillary Refill, Normal Range of Motion Neurologic/Psychiatric: Alert, Oriented x3, Normal Mood/Affect Skin: Normal Color, Warm/Dry (SANTHOSH SHAHID STUDENT) General Appearance: Anxious, Chronically ill HEENT: PERRL/EOMI, Pharynx Normal Neck: Non Tender, Supple Respiratory: No Respiratory Distress, Crackles (few at the left base) Cardiovascular: Regular Rate, Rhythm, No Murmur Gastrointestinal: Soft, Distended, Tenderness (right upper quadrant and left lower quadrant mild but she is tender everywhere you touch essentially on the torso.) Extremity: No Calf Tenderness, No Pedal Edema Neurologic/Psychiatric: Alert, Oriented x3, Normal Mood/Affect Skin: Normal Color, Warm/Dry (QUIN JONES MD) Focused Exam Lactate Level 07/07/19 07:00: Lactic Acid Level 1.48 (QUIN JONES MD) Lactic Acid Level Laboratory Tests Test 07/07/19 07:00 Lactic Acid Level 1.48 MMOL/L (0.50-2.00) (QUIN JONES MD) Procedures/Interventions Date of ETT Placement: Jul 02, 2019 Time of ETT Placement: 1236 (SANTHOSH SHAHID MED STUDENT) Progress/Results/Core Measures Results/Orders Lab Results Laboratory Tests Test 07/07/19 07:00 Range/Units White Blood Count 6.3 4.3-11.0 10^3/uL Red Blood Count 4.16 L 4.35-5.85 10^6/uL Hemoglobin 12.0 11.5-16.0 G/DL Hematocrit 38 35-52 % Mean Corpuscular Volume 91 80-99 FL Mean Corpuscular Hemoglobin 29 25-34 PG Mean Corpuscular Hemoglobin Concent 32 32-36 G/DL Red Cell Distribution Width 15.7 H 10.0-14.5 % Platelet Count 399 130-400 10^3/uL Mean Platelet Volume 10.4 7.4-10.4 FL Neutrophils (%) (Auto) 55 42-75 % Lymphocytes (%) (Auto) 35 12-44 % Monocytes (%) (Auto) 5 0-12 % Eosinophils (%) (Auto) 4 0-10 % Basophils (%) (Auto) 1 0-10 % Neutrophils # (Auto) 3.5 1.8-7.8 X 10^3 Lymphocytes # (Auto) 2.2 1.0-4.0 X 10^3 Monocytes # (Auto) 0.3 0.0-1.0 X 10^3 Eosinophils # (Auto) 0.3 0.0-0.3 10^3/uL Basophils # (Auto) 0.0 0.0-0.1 10^3/uL Prothrombin Time 12.0 L 12.2-14.7 SEC INR Comment 0.9 0.8-1.4 Activated Partial Thromboplast Time 36 H 24-35 SEC Sodium Level 135 135-145 MMOL/L Potassium Level 6.1 H 3.6-5.0 MMOL/L Chloride Level 109 H 98-107 MMOL/L Carbon Dioxide Level 16 L 21-32 MMOL/L Anion Gap 10 5-14 MMOL/L Blood Urea Nitrogen 41 H 7-18 MG/DL Creatinine 1.68 H 0.60-1.30 MG/DL Estimat Glomerular Filtration Rate 31 BUN/Creatinine Ratio 24 Glucose Level 107 H 70-105 MG/DL Lactic Acid Level 1.48 0.50-2.00 MMOL/L Calcium Level 9.2 8.5-10.1 MG/DL Corrected Calcium 9.2 8.5-10.1 MG/DL Magnesium Level 1.9 1.6-2.4 MG/DL Total Bilirubin 0.1 0.1-1.0 MG/DL Aspartate Amino Transf (AST/SGOT) 16 5-34 U/L Alanine Aminotransferase (ALT/SGPT) 21 0-55 U/L Alkaline Phosphatase 61 40-136 U/L Myoglobin 55.8 10.0-92.0 NG/ML Troponin I 0.138 H <0.028 NG/ML B-Type Natriuretic Peptide 92.6 <100.0 PG/ML Total Protein 7.7 6.4-8.2 GM/DL Albumin 4.0 3.2-4.5 GM/DL (QUIN JONES MD) My Orders Orders - QUIN JONES MD Cbc With Automated Diff (07/07/19 06:34) Magnesium (07/07/19 06:34) Chest 1 View, Ap/Pa Only (07/07/19 06:34) Ekg Tracing (07/07/19 06:34) Cardiac Profile 1 (07/07/19 06:34) Comprehensive Metabolic Panel (07/07/19 06:34) Myoglobin Serum (07/07/19 06:34) Protime With Inr (07/07/19 06:34) Partial Thromboplastin Time (07/07/19 06:34) O2 (07/07/19 06:34) Monitor-Rhythm Ecg Trace Only (07/07/19 06:34) Lipid Panel (07/08/19 06:00) Ed Iv/Invasive Line Start (07/07/19 06:34) Aspirin Chewable Tablet (Baby Aspirin Ch (07/07/19 06:45) Lactic Acid Analyzer (07/07/19 06:34) Blood Culture (07/07/19 06:34) Stool Culture (07/07/19 06:34) C Difficile Ag + Toxin A/B. (07/07/19 06:34) Lidocaine 2% Viscous 15 Ml (Xylocaine Vi (07/07/19 06:45) Antacid Suspension (Mylanta Suspension (07/07/19 06:45) Ua Culture If Indicated (07/07/19 06:42) Fentanyl Injection (Sublimaze Injection (07/07/19 07:45) BNP (07/07/19 07:49) Ed Iv/Invasive Line Start (07/07/19 07:50) Ns Iv 500 Ml (Sodium Chloride 0.9%) (07/07/19 07:50) Venous Access Request Order (07/07/19 08:48) Hyoscyamine Sl Tablet (Levsin Sl Tablet) (07/07/19 09:00) (QUIN JONES MD) Medications Given in ED Current Medications Medications Dose Ordered Sig/Tad Route Start Time Stop Time Status Last Admin Dose Admin Al Hydrox/Mg Hydrox/Simethicone 30 ml ONCE ONCE PO 07/07/19 06:45 07/07/19 06:46 DC 07/07/19 06:40 30 ML Aspirin 324 mg ONCE ONCE PO 07/07/19 06:45 07/07/19 06:46 DC 07/07/19 06:40 324 MG Fentanyl Citrate 50 mcg ONCE PRN IVP 07/07/19 07:45 07/07/19 07:45 50 MCG Lidocaine HCl 15 ml ONCE ONCE PO 07/07/19 06:45 07/07/19 06:46 DC 07/07/19 06:40 15 ML (QUIN JONES MD) Vital Signs/I&O 07/07/19 06:11 Temp 37.0 Pulse 89 Resp 20 B/P (MAP) 127/69 (88) O2 Delivery Room Air (QUIN JONES MD) Progress Progress Note : Time: 07:00 Progress Note The patient is resting comfortably in the exam room. She will be examined with standard chest pain protocol. She will additionally be evaluated with UA, Blood cultures, lactic acid, and stool cultures for possible UTI/sepsis/pneumonia/C.diff. (SANTHOSH SHAHID MED STUDENT) Progress Note : Progress Note I have seen and evaluated the patient and agree with above except as indicated. Have directed the plan of care. Patient recently admitted for altered mental status and UTI with history of methamphetamine use. She was intubated and on vent for 2 days. After extubation she did complain of the central chest discomfort. Does have long-standing history of intermittent renal dysfunction as well as elevated troponin. ASA 324 mg by mouth given. GI cocktail given. Chest pain protocol initiated and we have added lactic acid and blood cultures. Monitor patient. 0835: We have ordered normal saline 500 mL bolus but are unable to get good venous access. Midline has been ordered. I did discuss the case with Dr. Irizarry and she accepts patient for admission. Patient to be admitted inpatient status with consult to cardiology. I discussed the case with Dr. Jenkins and he accepts patient in consult. We will repeat troponin at the 3 are marked. His requested to the cardiac echo which was ordered. We will continue her fluids when available after midline placement. Admit. Patient agrees with plan. 1035: Patient did have seizure while pending room assignment. Ativan 1 mg IV given and this did resolve the seizure. Midline catheter placed by team. Gladis moreira doing better currently. Patient to admission room. (QUIN JONES MD) Initial ECG Impression Date: Jul 07, 2019 Initial ECG Impression Time: 06:16 Initial ECG Rate: 91 Initial ECG Rhythm: Normal Sinus Comment Sinus rhythm with left ventricular perked her feet. Normal leftward axis. No evidence of ST elevation MO. There are some subtle changes especially in lead 2 but otherwise fairly similar to 05/04/19. Interpreted by me. (QUIN JONES MD) Diagnostic Imaging Diagonstic Imaging: Xray Plain Films/CT/US/NM/MRI: chest Comments [facility], [place] NAME: KEREN MAX [facility] REC#: [id number] PT STATUS: REG ER : 1960 PHYSICIAN: QUIN JONES MD ADMIT DATE: 07/07/19/ER Draft Date of Exam:07/07/19 CHEST 1 VIEW, AP/PA ONLY Indication: Abdominal pain and epigastric pain. Comparison with 07/03/2019. The lungs are well-aerated and clear. Heart is not enlarged. There is no evidence of pulmonary edema. No pneumothorax or pleural effusion. No bony abnormalities. IMPRESSION: Normal portable chest. Tubes and lines have been removed since previous exam. Dictated on workstation # [id number] Dict: 07/07/19 0752 Trans: 07/07/19 0754 [facility] [id number] Interpreted by: DHEERAJ DEY MD Electronically signed by: (QUIN JONES MD) Departure Communication (Admissions) Time/Spoke to Admitting Phy: 08:35 Time/Spoke to Consulting Phy: 08:50 (QUIN JONES MD) Impression Primary Impression: Chest pain Additional Impressions: Dehydration Acute on chronic renal insufficiency Watery diarrhea Seizure Disposition: ADMITTED INPATIENT Condition: Stable Admissions Decision to Admit Reason: Admit from ER (General) Decision to Admit/Date: Jul 07, 2019 Time/Decision to Admit Time: 08:35 (QUIN JONES MD) Departure-Patient Inst. Referrals: [facility] (PCP/Family) Primary Care Physician SANTHOSH SHAHID MED STUDENT Jul 07, 2019 06:59 QUIN JONES MD Jul 07, 2019 09:02
[2019-07-07 07:09] LABS: BASOPHILS % (AUTO) 1 % (0-10); EOSINOPHILS # (AUTO) 0.3 10^3/uL (0.0-0.3); EOSINOPHILS % (AUTO) 4 % (0-10); HEMATOCRIT 38 % (35-52); LYMPHOCYTES # (AUTO) 2.2 X 10^3 (1.0-4.0); LYMPHOCYTES % (AUTO) 35 % (12-44); MEAN CORPUSCULAR HEMOGLOBIN 29 PG (25-34); MEAN CORPUSCULAR HGB CONC 32 G/DL (32-36); MEAN CORPUSCULAR VOLUME 91 FL (80-99); MEAN PLATELET VOLUME 10.4 FL (7.4-10.4); MONOCYTES # (AUTO) 0.3 X 10^3 (0.0-1.0); MONOCYTES % (AUTO) 5 % (0-12); NEUTROPHILS # (AUTO) 3.5 X 10^3 (1.8-7.8); NEUTROPHILS % (AUTO) 55 % (42-75); PLATELET COUNT 399 10^3/uL (130-400); RED CELL DISTRIBUTION WIDTH 15.7 % (10.0-14.5); WHITE BLOOD COUNT 6.3 10^3/uL (4.3-11.0)
--- NOTE | 2019-07-07 07:15 | NUR ---
lab here to draw.
[2019-07-07 07:27] LABS: INR 0.9 (0.8-1.4)
[2019-07-07 07:34] LABS: BILIRUBIN,TOTAL 0.1 MG/DL (0.1-1.0); CALCIUM 9.2 MG/DL (8.5-10.1); CREATININE SERUM 1.68 MG/DL (0.60-1.30); MAGNESIUM 1.9 MG/DL (1.6-2.4); POTASSIUM 6.1 MMOL/L (3.6-5.0); TOTAL PROTEIN 7.7 GM/DL (6.4-8.2)
[2019-07-07] MEDS ORDERED: fentaNYL INJECTION 100 MCG/2 ML AMP IVP PRN ×2 (07:45→12:45)
--- NOTE | 2019-07-07 07:55 | Diagnostic Imaging Report ---
Indication: Abdominal pain and epigastric pain. Comparison with 07/03/2019. The lungs are well-aerated and clear. Heart is not enlarged. There is no evidence of pulmonary edema. No pneumothorax or pleural effusion. No bony abnormalities. IMPRESSION: Normal portable chest. Tubes and lines have been removed since previous exam. Dictated by: Dictated on workstation # [id number]
[2019-07-07] MEDS: NS IV 500 ML 500 ML IV ONE ×2 (08:23→10:16)
--- NOTE | 2019-07-07 08:31 | NUR ---
FLUIDS WILL NOT RUN THRU THE IV. DR BARRON ET STATES HE WILL ATTEMPT A DIFFERENT KIND OF LINE.
--- NOTE | 2019-07-07 08:39 | NUR ---
IN TALKING TO PT ABOUT ADMISSION AND PLACEMENT OF A MIDLINE.
--- NOTE | 2019-07-07 08:45 | NUR ---
KATERINA Santos RN TALKED WITH OCTAVIA Spicer RN ABOUT DR ORDERING A MIDLINE ON THE PT. OCTAVIA STATES SHE WILL BE ABLE TO DO IT AT A LITTLE LATER TIME. NOTIFIED.
[2019-07-07] MEDS ORDERED: HYOSCYAMINE 0.125 MG (LEVSIN) TAB SL ONE (09:00)
--- NOTE | 2019-07-07 09:23 | NUR ---
DR PERKINS HERE TO SEE PT.
--- NOTE | 2019-07-07 09:29 | NUR ---
ATTEMPT TO CALL NURSE ON 4TH ET MANUFACTURING SR ENGINEER STATES SHE WILL HAVE THE NURSE CALL ME BACK.
--- NOTE | 2019-07-07 09:43 | NUR ---
CK Spicer CALLED TO JOAN ET STATES SHE WILL BE HERE SOON TO START THE MIDLINE.
--- NOTE | 2019-07-07 09:47 | NUR ---
OCTAVIA HERE TO START MIDLINE.
--- NOTE | 2019-07-07 10:03 | NUR ---
OCTAVIA SALDIVAR REPORTS PT IS HAVING A SEIZURE. NOTIFIED. OXIMASK APPLIED TO PT.
--- NOTE | 2019-07-07 10:05 | NUR ---
SEIZURE HAS STOPPED ET ATIVAN 1MG IV GIVEN.
[2019-07-07] MEDS ORDERED: LORazepam INJ 2 MG/ML (ATIVAN) VIAL ONE (10:09)
--- NOTE | 2019-07-07 10:30 | NUR ---
KEREN MAX admitted to room 415-1, with an admitting diagnosis of CHEST PAIN, DIARRHEA, DEHYDRATION, ACUTE RENAL INSUFFICIENCY, on 07/07/19 from ED via WHEELCHAIR, accompanied by ED RN. KEREN MAX introduced to surroundings, call light, bed controls, phone, TV, temperature control, lights, meal times, smoking policy, visitor policy, side rail policy, bathrooms and showers. Patient Rights given to patient in the handbook. KEREN MAX verbalizes understanding that [facility] is not responsible for the loss or damage to any personal effects or valuables that are kept in the patients possession during their hospitalization. The following Patient Care Plans were discussed with the PATIENT: Discharge Planning,CHEST PAIN, and KNOWLEDGE DEFICIT. KEREN MAX verbalizes understanding of Interdisciplinary Patient Education. Patient and/or family were informed about the Rapid Response Team and its purpose.
[2019-07-07 10:45] VITALS: BP 108/71
[2019-07-07] MEDS ORDERED: LORazepam INJ 2 MG/ML (ATIVAN) VIAL IVP ONE (11:00)
[2019-07-07] MEDS: NS IV 500 ML 500 ML IV SCH ×2 (11:18→13:24)
[2019-07-07] MEDS: NS IV 1000 ML 1,000 ML IV SCH ×2 (11:18→20:03)
[2019-07-07 11:21] LABS: BILIRUBIN,URINE NEGATIVE (NEGATIVE); GLUCOSE, URINE (UA) NEGATIVE (NEGATIVE); KETONES,URINE NEGATIVE (NEGATIVE); LEUKOCYTE ESTERASE ,URINE 2+ (NEGATIVE); NITRITE,URINE NEGATIVE (NEGATIVE); PH,URINE 5 (5-9); PROTEIN,URINE 2+ (NEGATIVE); UROBILINOGEN,URINE NORMAL (NORMAL)
[2019-07-07 11:22] LABS: AMORPHOUS SEDIMENT,UR RARE AMOR URATES /LPF; BACTERIA,URINE MODERATE /HPF; CLARITY,URINE CLEAR; COLOR,URINE YELLOW; SQUAMOUS EPITHELIAL CELL,UR 25-50 /HPF
[2019-07-07 12:00] VITALS: BP 108/71
[2019-07-07] MEDS ORDERED: AMLO10TA7 PO (12:07)
[2019-07-07] MEDS ORDERED: METO-395 PO (12:07)
--- NOTE | 2019-07-07 12:08 | NUR ---
UNABLE TO SPEAK WITH THE PATIENT REGARDING MEDICATIONS AT THIS TIME. SHE IS NOT ANSWERING MY QUESTIONS. SHE WAS RECENTLY ADMITTED AND I COMPARED THAT MED REC TO WHAT HAS BEEN FILLED AT [facility]. [facility] FILLED: 07-05-19 AMLODIPINE 10MG DAILY #30 07-05-19 METOPROLOL XL 100MG DAILY #30 06-28-19 HYDROXYZINE HCL 25MG TID #90 06-11-19 LOSARTAN 100MG DAILY #30 06-11-19 ZANTAC 150MG HS #30 06-11-19 PHENOBARBITAL 97.2MG DAILY #30 06-11-19 CLONIDINE 0.2MG BID #60 05-17-19 FLEXERIL 10MG BID PRN #60 05-13-19 SPIRONOLACTONE 25MG DAILY #30 (THEY HAVE A SCRIPT READY FOR DYNAMICS AX DEVELOPER NOW WELL) 05-13-19 HYDRALAZINE 50MG TID #90 (THEY HAVE A SCRIPT READY FOR DYNAMICS AX DEVELOPER NOW WELL) 05-13-19 OXCARBAZEPINE 600MG BID #60 (THEY HAVE A SCRIPT READY FOR DYNAMICS AX DEVELOPER NOW WELL) 05-13-19 PRAZOSIN 1MG #30 (THEY HAVE A SCRIPT READY FOR DYNAMICS AX DEVELOPER NOW WELL) TYLENOL OTC PRN WAS ALSO PREVIOUSLY REPORTED.
--- NOTE | 2019-07-07 13:52 | Consultation-Cardiology ---
HPI-Cardiology Cardiology Consultation: Date of Consultation 07/07/19 Date of Admission Attending Physician Deepika Patel DO Admitting Physician [facility] Consulting Physician Paolo JENKINS MD HPI: Time Seen by a Provider: 09:00 Chief Complaint: Chest pain This is a 58-year-old lady who I have seen previously as well. She presents with complain of chest pain and abdominal pain. She was recently admitted for acute respiratory failure and was intubated. She was extubated and discharged a few days ago. She presents back with complains of chest pain for the last 2-3 days. She is also complaining of abdominal pain with significant diarrhea. She denies nausea and vomiting. She denies any other cardiac symptoms including shortness of breath, syncope, near-syncope or palpitations. Review of Systems-Cardiology Review of Systems Constitutional: As described under HPI; No As described under HPI, No no symptoms reported, No chills, No fever, No lightheadedness Eyes: No As described under HPI, No no symptoms reported, No blindness, No blurred vision, No contact lenses, No drainage, No decreased acuity, No foreign body sensation, No pain, No vision change Ears/Nose/Throat: No As described under HPI, No no symptoms reported, No chronic hearing loss, No ear discharge, No ear pain, No nasal drainage, No ulcerations Respiratory: No no symptoms reported; As described under HPI; No As described under HPI, No cough, No orthopnea, No shortness of breath, No SOB with excertion Cardiovascular: No no symptoms reported; As described under HPI; No As described under HPI; chest pain; No edema, No irregular heart rate, No lightheadedness, No palpitations Gastrointestinal: No no symptoms reported, No As described under HPI, No abdomen distended, No abdominal pain, No blood streaked bowels, No constipation, No diarrhea, No nausea, No vomiting; nausea/vomiting/diarrhea; No stool coloration changes Genitourinary: No As described under HPI, No burning, No dysuria, No discharge, No frequency, No flank pain, No hematuria, No urgency : Yes : No Skin: No rash, No skin related problems, No ulcerations Psychiatric/Neurological: No anxiety, No depression, No seizure, No focal weakness, No syncope Hematologic: No bleeding abnormalities All Other Systems Reviewed Negative Unless Noted: Yes [id number]-[id number] Hx Patient Social History Alcohol Use: Denies Use Recreational Drug Use: No Drug of Choice: HX OF IV METH USE Smoking Status: Never a Smoker Former smoker/When Quit: Oct 13, 2007 Type Used: Cigarettes 2nd Hand Smoke Exposure: Yes Recent Foreign Travel: No Recent Infectious Disease Expo: No Hospitalization with Isolation: Denies Immunizations Up To Date Tetanus Booster (TDap): Less than 5yrs Date of Pneumonia Vaccine: Jul 13, 2012 Date of Influenza Vaccine: Jul 28, 2018 Past Medical History PMH As described under Assessment. Family Medical History Family History: Abdominal aortic aneurysm 03 FATHER Alcoholism 03 FATHER 03 MOTHER 09 SISTER 09 SISTER Cancer 03 FATHER Cataract 03 FATHER 03 MOTHER Chest pain 03 MOTHER Family history: Diabetes mellitus 03 MOTHER Family history: Hypertension 03 MOTHER Family history: Thyroid disorder 03 MOTHER Headache 09 SISTER Heart disease 03 MOTHER History of drug abuse 03 FATHER 09 SISTER Myocardial infarction 03 MOTHER No Family History of: [place]'s disease Aphasia Cancer of colon Congenital heart disease Congestive heart failure Cystic fibrosis Dementia Dysphagia Family history: Allergy Family history: Alzheimer's disease Family history: Arthritis Family history: Asthma Family history: Breast disease Family history: Cardiovascular disease Family history: Coronary thrombosis Family history: Gastrointestinal disease Family history: Glaucoma Family history: Osteoporosis Hearing loss Hereditary disease History of - anemia History of - disorder History of - respiratory disease Human immunodeficiency virus (HIV) seropositivity Hypercholesterolemia Infertile Kidney disease Malignant neoplasm of lung Parkinson's disease Prostate cancer Psychotic disorder Seizure disorder Stroke Tuberculosis Visual impairment Allergies and Home Medications Allergies Coded Allergies: nitrous oxide (Verified Allergy, Unknown, 06/08/07) Home Medications Acetaminophen 500 Mg Tablet, 1,000 MG PO Q6H PRN for PAIN-MILD, (Reported) Amlodipine Besylate 10 Mg Tablet, 10 MG PO DAILY, (Reported) Clonidine HCl 0.2 Mg Tablet, 0.2 MG PO BID, (Reported) Cyclobenzaprine HCl 10 Mg Tablet, 10 MG PO BID PRN for MUSCLE SPASMS, (Reported) Hydralazine HCl 50 Mg Tablet, 50 MG PO TID, (Reported) Hydroxyzine HCl 25 Mg Tablet, 25 MG PO TID PRN for ANXIETY, (Reported) Losartan Potassium 100 Mg Tablet, 100 MG PO DAILY, (Reported) Metoprolol Succinate 100 Mg Tab.er.24h, 100 MG PO DAILY, (Reported) Oxcarbazepine 600 Mg Tablet, 600 MG PO BID, (Reported) Phenobarbital 97.2 Mg Tablet, 97.2 MG PO DAILY, (Reported) Prazosin HCl 1 Mg Capsule, 1 MG PO HS, (Reported) Ranitidine HCl 150 Mg Tablet, 150 MG PO HS, (Reported) Spironolactone 25 Mg Tablet, 25 MG PO DAILY, (Reported) Patient Home Medication List Home Medication List Reviewed: Yes Physical Exam-Cardiology Physical Exam Vital Signs/I&O 07/07/19 07/07/19 07/07/19 07/07/19 06:11 10:40 10:40 10:45 Temp 37.0 36.8 Pulse 89 78 84 Resp 20 16 20 B/P (MAP) 127/69 (88) 105/75 108/71 Pulse Ox 98 90 O2 Delivery Room Air Nasal Cannula Nasal Cannula Nasal Cannula O2 Flow Rate 2.00 2.00 2.00 07/07/19 12:00 Temp 36.8 Pulse 84 Resp 20 B/P (MAP) 108/71 (83) Pulse Ox 90 O2 Delivery Nasal Cannula O2 Flow Rate 2.00 Capillary Refill : Less Than 3 Seconds Constitutional: appears stated age, AAO x 3; No apparent distress; well-devel oped, well-nourished HEENT: PERRL; No discharge; hearing is well preserved, oral hygience is good; No ulceration, No xanthelasmas are seen Neck: No carotid bruit; carotid pulses are 2 + bilaterally Respiratory: No accessory muscle use, No respiratory distress, No chest tender, No chest expansion is symmetric; chest is bilaterally symmetric; No lungs clear to percussion; lungs clear to auscultation; No crackles, No rhonchi, No rales, No stridor, No wheezing, No pleural rub, No other Cardiovascular: regular rate-rhythm; No irregularly irregular, No extra beats, No parasternal heave is noted, No JVD, No edema, No bradycardia, No tachycardia, No point of maximal impulse, No cardiac thrills are palpable; S1 and S2; No gallop/S3, No gallop/S4, No diastolic murmur, No systolic murmur, No friction rub, No click, No other Gastrointestinal: soft, round, audible bowel sounds; No spleenomegaly Rectal: deferred Extremities: normal range of motion, non-tender, normal inspection; No clubbing, No cyanosis; no lower extremity edema bilateral; No significant edema Neurologic/Psychiatric: no motor/sensory deficits, alert, normal mood/affect, oriented x 3, power is 5/5 both on sides Skin: normal color; No rash, No ulcerations Data Review Labs Laboratory Tests 07/07/19 07:00: White Blood Count 6.3, Red Blood Count 4.16L, Hemoglobin 12.0, Hematocrit 38, Mean Corpuscular Volume 91, Mean Corpuscular Hemoglobin 29, Mean Corpuscular Hemoglobin Concent 32, Red Cell Distribution Width 15.7H, Platelet Count 399, Mean Platelet Volume 10.4, Neutrophils (%) (Auto) 55, Lymphocytes (%) (Auto) 35, Monocytes (%) (Auto) 5, Eosinophils (%) (Auto) 4, Basophils (%) (Auto) 1, Neutrophils # (Auto) 3.5, Lymphocytes # (Auto) 2.2, Monocytes # (Auto) 0.3, Eosinophils # (Auto) 0.3, Basophils # (Auto) 0.0, Prothrombin Time 12.0L, INR Comment 0.9, Activated Partial Thromboplast Time 36H, Sodium Level 135, Potassium Level 6.1H, Chloride Level 109H, Carbon Dioxide Level 16L, Anion Gap 10, Blood Urea Nitrogen 41H, Creatinine 1.68H, Estimat Glomerular Filtration Rate 31, BUN/Creatinine Ratio 24, Glucose Level 107H, Lactic Acid Level 1.48, Calcium Level 9.2, Corrected Calcium 9.2, Magnesium Level 1.9, Total Bilirubin 0.1, Aspartate Amino Transf (AST/SGOT) 16, Alanine Aminotransferase (ALT/SGPT) 21, Alkaline Phosphatase 61, Myoglobin 55.8, Troponin I 0.138H, B-Type Natriuretic Peptide 92.6, Total Protein 7.7, Albumin 4.0 07/07/19 10:50: Urine Color YELLOW, Urine Clarity CLEAR, Urine pH 5, Urine Specific [place] 1.020, Urine Protein 2+H, Urine Glucose (UA) NEGATIVE, Urine Ketones NEGATIVE, Urine Nitrite NEGATIVE, Urine Bilirubin NEGATIVE, Urine Urobilinogen NORMAL, Urine Leukocyte Esterase 2+H, Urine RBC (Auto) NEGATIVE, Urine RBC NONE, Urine WBC 5-10H, Urine Squamous Epithelial Cells 25-50H, Urine Crystals PRESENTH, Urine Amorphous Sediment RARE SABRA URATESH, Urine Bacteria MODERATEH, Urine Casts NONE, Urine Mucus NEGATIVE, Urine Culture Indicated YES 07/07/19 11:15: Troponin I 0.123H A/P-Cardiology Assessment/Admission Diagnosis Chest pain, positive troponin, Diarrhea, Acute kidney injury, History of LV systolic dysfunction, Mild CAD, Hypertension Plan Chest pain, positive troponin, serial troponin did not reveal any significant rise, in fact troponin is decreasing. Could be secondary to acute respiratory failure daily as ago. Also the chest pain is reproducible. She had coronary angiography in February 2018 which showed very mild CAD. Diarrhea, IV fluids. Acute kidney injury, IV fluids. History of LV systolic dysfunction, continue outpatient medical therapy of cardiomyopathy. I will recommend an echocardiogram to review LV function. Mild CAD, based on coronary angiography in 02/2018. Hypertension, well controlled. Thank you for your consultation. Please call me if you have any questions. Brinda Jenkins MD, FACP, FACC, FSCAI, FHRS, CCDS Interventional Cardiology Cardiac Electrophysiology Vascular Medicine and Endovascular Interventions Clinical Quality Measures AMI/AHF: ASA po Prior to arrival: No DVT/VTE Risk/Contraindication: Risk Factor Score Per Nursin RFS Level Per Nursing on Admit: 3=High Paolo JENKINS MD Jul 07, 2019 13:52
[2019-07-07 16:55] VITALS: BP 144/77
[2019-07-07 20:10] VITALS: BP 144/79
--- NOTE | 2019-07-07 20:13 | History & Physical-Hospitalist ---
History of Present Illness HPI/Chief Complaint Chief complaint: Abdominal pain with severe diarrhea and elevated troponin History of present illness: This is a 58-year-old white female that I just discharged after she had a seizure and apparently used meth had an unresponsive episode and was intubated in the ER sent to the ICU Dr. Balderrama extubated quickly and she was maintained on close monitoring treated for UTI with Rocephin for 4 days and was well enough to go home of which she agreed to then she presented to the ER with severe dehydration weakness from severe diarrhea was found to be in need of hospitalization because of elevated creatinine and elevated troponin prompting aggressive IV fluids in addition to cardiology consultation and general surgery consultation due to distended abdomen. At this current time patient feels a little better but is drowsy but she is oriented x3 and she remembers who I am. Source: patient, RN/MD, old records Exam Limitations: no limitations Date Seen 07/07/19 Time Seen by a Provider: 12:00 Attending Physician Deepika Patel DO [facility] [place] Referring Physician Date of Admission Jul 07, 2019 at 09:23 Home Medications & Allergies Home Medications Reviewed patient Home Medication Reconciliation performed by pharmacy medication reconciliations kennel technician and/or nursing. Patients Allergies have been reviewed. Allergies Allergies Coded Allergies nitrous oxide (Verified Allergy, Unknown, 06/08/07) Past [id number] Hx Past Med/Social Hx: Reviewed Nursing Past Med/Soc Hx, Reviewed and Corrections made Patient Social History Marrital Status: single Employed/Student: unemployed Alcohol Use: Denies Use Recreational Drug Use: No Drug of Choice: HX OF IV METH USE Smoking Status: Never a Smoker Type Used: Cigarettes 2nd Hand Smoke Exposure: Yes Recent Foreign Travel: No Contact w/other who traveled: No Recent Hopitalizations: No Recent Infectious Disease Expo: No Immunizations Up To Date Tetanus Booster (TDap): Less than 5yrs Pediatric: No Date of Pneumonia Vaccine: Jul 13, 2012 Date of Influenza Vaccine: Jul 28, 2018 Seasonal Allergies Seasonal Allergies: No Past Medical History Surgeries: Abdominal, Adenoidectomy, Hysterectomy, Oophorectomy, Tonsillectomy Respiratory: Pneumonia Currently Using CPAP: No Currently Using BIPAP: No Cardiac: Hypertension, Valvular Heart Disease Neurological: Seizure Disorder, Stroke 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: No Sexually Transmitted Disease: No HIV/AIDS: No Female 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 Hysterectomy Genitourinary: Kidney Infection, Bladder Infection, Kidney Stones, Renal Failure, UTI-Chronic Gastrointestinal: Gastroesophageal Reflux Musculoskeletal: Arthritis, Chronic Back Pain Loss of Vision: Denies Hearing Impairment: Denies Cancer: Cervical Psychosocial: Anxiety, Bipolar, Depression History of Blood Disorders: Yes (ANEMIA) Adverse Reaction to Blood New: No Family History Reviewed Nursing Family Hx Abdominal aortic aneurysm 03 FATHER Alcoholism 03 FATHER 03 MOTHER 09 SISTER 09 SISTER Cancer 03 FATHER Cataract 03 FATHER 03 MOTHER Chest pain 03 MOTHER Family history: Diabetes mellitus 03 MOTHER Family history: Hypertension 03 MOTHER Family history: Thyroid disorder 03 MOTHER Headache 09 SISTER Heart disease 03 MOTHER History of drug abuse 03 FATHER 09 SISTER Myocardial infarction 03 MOTHER No Family History of: [place]'s disease Aphasia Cancer of colon Congenital heart disease Congestive heart failure Cystic fibrosis Dementia Dysphagia Family history: Allergy Family history: Alzheimer's disease Family history: Arthritis Family history: Asthma Family history: Breast disease Family history: Cardiovascular disease Family history: Coronary thrombosis Family history: Gastrointestinal disease Family history: Glaucoma Family history: Osteoporosis Hearing loss Hereditary disease History of - anemia History of - disorder History of - respiratory disease Human immunodeficiency virus (HIV) seropositivity Hypercholesterolemia Infertile Kidney disease Malignant neoplasm of lung Parkinson's disease Prostate cancer Psychotic disorder Seizure disorder Stroke Tuberculosis Visual impairment Diabetes Review of Systems Constitutional: see HPI, malaise, weakness Gastrointestinal: diarrhea Physical Exam Physical Exam Vital Signs Vital Signs - First Documented 07/07/19 07/07/19 06:11 10:30 Temp 37.0 Pulse 89 Resp 20 B/P (MAP) 127/69 (88) Pulse Ox 90 O2 Delivery Room Air O2 Flow Rate 2.00 Capillary Refill : Less Than 3 Seconds Height, Weight, BMI Height: 5'3.00" Weight: 155lbs. 8.0oz. [id number]; 179.39 BMI Method:Stated General Appearance: WD/WN, Chronically ill, Mild Distress Eyes: Right Eye Normal Inspection, Right Eye PERRL HEENT: PERRL/EOMI, Normal ENT Inspection, Pharynx Normal, Moist Mucous Membranes Neck: Full Range of Motion, Normal Inspection, Non Tender Respiratory: Chest Non Tender, Lungs Clear, Normal Breath Sounds, No Accessory Muscle Use, No Respiratory Distress Cardiovascular: Regular Rate, Rhythm, No Edema, No Gallop, No JVD, No Murmur, Normal Peripheral Pulses Gastrointestinal: Normal Bowel Sounds, No Organomegaly, No Pulsatile Mass, Abnormal Bowel Sounds, Distended Back: Normal Inspection, No CVA Tenderness, No Vertebral Tenderness Extremity: Normal Capillary Refill, Normal Inspection, Normal Range of Motion, Non Tender, No Calf Tenderness, No Pedal Edema Neurologic/Psychiatric: Alert, Oriented x3, No Motor/Sensory Deficits, Normal Mood/Affect Skin: Normal Color, Warm/Dry Lymphatic: No Adenopathy Results Results/Procedures Labs Laboratory Tests 07/07/19 07:00 Patient resulted labs reviewed. Assessment/Plan Admission Diagnosis Assessment: Dehydration Acute renal failure Severe diarrhea Elevated creatinine Seizure disorder HTN Plan: Consult cardiology Consult general surgery IV fluid Pain control Home meds Admission Status: Inpatient Order (span 2 midnights) Reason for Inpatient Admission: Elevated troponin with distended abdomen and ARF Diagnosis/Problems Diagnosis/Problems (1) Dehydration Status: Acute (2) Acute on chronic renal insufficiency Status: Acute (3) Watery diarrhea Status: Acute (4) Distended abdomen Status: Acute (5) Drug abuse Status: Acute (6) Hypertensive urgency Status: Acute Clinical Quality Measures AMI/AHF: ASA po Prior to arrival: No DVT/VTE Risk/Contraindication: Risk Factor Score Per Nursin RFS Level Per Nursing on Admit: 3=High DEEPIKA PATEL DO Jul 07, 2019 20:13
[2019-07-07] MEDS ORDERED: CALCIUM CARBONATE 500 MG (TUMS) TAB.CHEW PO PRN (20:15)
[2019-07-07] MEDS ORDERED: ALPRAZolam 0.25 MG (XANAX) TAB PO PRN (20:15)
[2019-07-07] MEDS ORDERED: ONDANSETRON 4 MG (ZOFRAN) ORAL DISSOLVE TAB PO PRN (20:15)
[2019-07-07] MEDS ORDERED: LOPERAMIDE 2 MG (IMODIUM) TABLET PO PRN (20:15)
[2019-07-07] MEDS ORDERED: diphenhydrAMINE 25 MG TAB (BENADRYL) PO PRN (20:15)
[2019-07-07] MEDS ORDERED: NON-FORMULARY MEDICATION 1 EA EA (Acetaminophen (Tylenol Extra Strength) 1,000 MG) PO PRN (20:15)
[2019-07-07] MEDS ORDERED: ACETAMINOPHEN 500 MG TAB (TYLENOL) PO PRN (20:15)
[2019-07-07] MEDS ORDERED: NON-FORMULARY MEDICATION 1 EA EA (Hydroxyzine HCl 25 MG) PO PRN (20:15)
[2019-07-07] MEDS ORDERED: DOCUSATE SODIUM 100 MG (COLACE) CAP PO PRN (20:15)
[2019-07-07] MEDS ORDERED: CYCLOBENZAPRINE 10 MG (FLEXERIL) TAB PO PRN (20:15)
[2019-07-07] MEDS ORDERED: ONDANSETRON 4 MG/2 ML (SDV) Z0FRAN IVP PRN (20:15)
[2019-07-07] MEDS ORDERED: MELATONIN 3 MG TABLET PO PRN (20:15)
--- NOTE | 2019-07-07 20:57 | Consultation - Surgery ---
TRACE HOYOS [facility] 07/07/192056: History of Present Illness History of Present Illness Patient Consulted On(jasper/time) 07/07/19 20:52 Date Seen by Provider: Jul 07, 2019 Time Seen by Provider: 12:45 History of Present Illness 58 year old female presents with diffuse abdominal pain that began a few days ago. The pain is constant and sharp with no radiation. Patient experiences sligh tly more pain with palpation over the RUQ and epigastric area. Patient rates pain 9.5/10 at its worse. Patient s also experiencing non-bloody diarrhea with more than 10 bowel movements per day. Nothing makes it better and nothing makes it worse. Patient reports some nausea and non-bloody vomiting before being admitted. Allergies and Home Medications Allergies Coded Allergies: nitrous oxide (Verified Allergy, Unknown, 06/08/07) Home Medications Acetaminophen 500 Mg Tablet, 1,000 MG PO Q6H PRN for PAIN-MILD, (Reported) Amlodipine Besylate 10 Mg Tablet, 10 MG PO DAILY, (Reported) Clonidine HCl 0.2 Mg Tablet, 0.2 MG PO BID, (Reported) Cyclobenzaprine HCl 10 Mg Tablet, 10 MG PO BID PRN for MUSCLE SPASMS, (Reported) Hydralazine HCl 50 Mg Tablet, 50 MG PO TID, (Reported) Hydroxyzine HCl 25 Mg Tablet, 25 MG PO TID PRN for ANXIETY, (Reported) Losartan Potassium 100 Mg Tablet, 100 MG PO DAILY, (Reported) Metoprolol Succinate 100 Mg Tab.er.24h, 100 MG PO DAILY, (Reported) Oxcarbazepine 600 Mg Tablet, 600 MG PO BID, (Reported) Phenobarbital 97.2 Mg Tablet, 97.2 MG PO DAILY, (Reported) Prazosin HCl 1 Mg Capsule, 1 MG PO HS, (Reported) Ranitidine HCl 150 Mg Tablet, 150 MG PO HS, (Reported) Spironolactone 25 Mg Tablet, 25 MG PO DAILY, (Reported) Patient Home Medication List Home Medication List Reviewed: Yes Past Lcnxcpe-Upemle-Cqzkze Hx Patient Social History Alcohol Use: Denies Use Recreational Drug Use: Yes Drug of Choice: HX OF IV METH USE Smoking Status: Never a Smoker Type Used: Cigarettes 2nd Hand Smoke Exposure: Yes Recent Foreign Travel: No Contact w/Someone Who Travel: No Recent Infectious Disease Expo: No Recent Hopitalizations: No Immunizations Up To Date Tetanus Booster (TDap): Less than 5yrs PED Vaccines UTD: No Date of Pneumonia Vaccine: Jul 13, 2012 Date of Influenza Vaccine: Jul 28, 2018 Seasonal Allergies Seasonal Allergies: No Surgeries History of Surgeries: Yes (hernia repair, T&A, hysterectomy, bladder suspension, multi to left leg, ) Surgeries: Abdominal (Hernia repair), Adenoidectomy, Hysterectomy, Oophorectomy, Tonsillectomy Respiratory History of Respiratory Disorde: Yes (SUPPOSED TO WEAR O2 AT HS AT 2 1/2-3L AT HS AND PRN) Respiratory Disorders: COPD Cardiovascular History of Cardiac Disorders: Yes Cardiac Disorders: Hypertension, Valvular Heart Disease Neurological History of Neurological Disord: Yes (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; CVA LEFT SIDE WEAKNESS, POOR BALANCE/USES WALKER) Neurological Disorders: Seizure Disorder, Stroke 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 System Hx 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 Disorders: No Sexually Transmitted Disease: No HIV/AIDS: No Female 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 Genitourinary Genitourinary Disorders: Kidney Infection, Bladder Infection, Kidney Stones, Renal Failure, UTI-Chronic Gastrointestinal History of Gastrointestinal Di: Yes (CHRONIC ABDOMINAL PAIN COMPLAINT; GASTRITIS; HEPATITIS C) Gastrointestinal Disorders: Gastroesophageal Reflux Musculoskeletal History of Musculoskeletal Dis: Yes Musculoskeletal Disorders: Arthritis, Chronic Back Pain Endocrine History of Endocrine Disorders: No HEENT History of HEENT Disorders: No Loss of Vision: Denies Hearing Impairment: Denies Cancer History of Cancer: No Cancer: Cervical Psychosocial History of Psychiatric Problem: Yes (SUBSTANCE ABUSE) Behavioral Health Disorders: Anxiety, Bipolar, Depression Integumentary History of Skin or Integumenta: No Blood Transfusions History of Blood Disorders: Yes (ANEMIA) Adverse Reaction to a Blood Tr: No Family Medical History Significant Family History: Diabetes Family Medial History: Abdominal aortic aneurysm 03 FATHER Alcoholism 03 FATHER 03 MOTHER 09 SISTER 09 SISTER Cancer 03 FATHER Cataract 03 FATHER 03 MOTHER Chest pain 03 MOTHER Family history: Diabetes mellitus 03 MOTHER Family history: Hypertension 03 MOTHER Family history: Thyroid disorder 03 MOTHER Headache 09 SISTER Heart disease 03 MOTHER History of drug abuse 03 FATHER 09 SISTER Myocardial infarction 03 MOTHER No Family History of: Ness's disease Aphasia Cancer of colon Congenital heart disease Congestive heart failure Cystic fibrosis Dementia Dysphagia Family history: Allergy Family history: Alzheimer's disease Family history: Arthritis Family history: Asthma Family history: Breast disease Family history: Cardiovascular disease Family history: Coronary thrombosis Family history: Gastrointestinal disease Family history: Glaucoma Family history: Osteoporosis Hearing loss Hereditary disease History of - anemia History of - disorder History of - respiratory disease Human immunodeficiency virus (HIV) seropositivity Hypercholesterolemia Infertile Kidney disease Malignant neoplasm of lung Parkinson's disease Prostate cancer Psychotic disorder Seizure disorder Stroke Tuberculosis Visual impairment Review of Systems-General Constitutional: see HPI EENTM: no symptoms reported Respiratory: no symptoms reported Cardiovascular: no symptoms reported Gastrointestinal: see HPI, abdominal pain, diarrhea, nausea, vomiting Genitourinary: no symptoms reported Musculoskeletal: no symptoms reported Skin: no symptoms reported Psychiatric/Neurological: No Symptoms Reported Physical Exam-General Problems Physical Exam Vital Signs Vital Signs - First Documented 07/07/19 07/07/19 06:11 10:30 Temp 37.0 Pulse 89 Resp 20 B/P (MAP) 127/69 (88) Pulse Ox 90 O2 Delivery Room Air O2 Flow Rate 2.00 Capillary Refill : Less Than 3 Seconds General Appearance: WD/WN, no apparent distress HEENT: PERRL/EOMI Neck: non-tender, normal inspection Respiratory: no respiratory distress, no accessory muscle use Cardiovascular: regular rate, rhythm, no edema Gastrointestinal: soft; No guarding, No rebound; tenderness Rectal: deferred Back: no CVA tenderness Extremities: normal inspection, no pedal edema Neurologic/Psychiatric: alert, normal mood/affect, oriented x 3 Skin: normal color, warm/dry Lymphatic: no adenopathy Data Review Labs Laboratory Tests 07/07/19 07:00: White Blood Count 6.3, Red Blood Count 4.16L, Hemoglobin 12.0, Hematocrit 38, Mean Corpuscular Volume 91, Mean Corpuscular Hemoglobin 29, Mean Corpuscular Hemoglobin Concent 32, Red Cell Distribution Width 15.7H, Platelet Count 399, Mean Platelet Volume 10.4, Neutrophils (%) (Auto) 55, Lymphocytes (%) (Auto) 35, Monocytes (%) (Auto) 5, Eosinophils (%) (Auto) 4, Basophils (%) (Auto) 1, Neutrophils # (Auto) 3.5, Lymphocytes # (Auto) 2.2, Monocytes # (Auto) 0.3, Eosinophils # (Auto) 0.3, Basophils # (Auto) 0.0, Prothrombin Time 12.0L, INR Comment 0.9, Activated Partial Thromboplast Time 36H, Sodium Level 135, Potassium Level 6.1H, Chloride Level 109H, Carbon Dioxide Level 16L, Anion Gap 10, Blood Urea Nitrogen 41H, Creatinine 1.68H, Estimat Glomerular Filtration Rate 31, BUN/Creatinine Ratio 24, Glucose Level 107H, Lactic Acid Level 1.48, Calcium Level 9.2, Corrected Calcium 9.2, Magnesium Level 1.9, Total Bilirubin 0.1, Aspartate Amino Transf (AST/SGOT) 16, Alanine Aminotransferase (ALT/SGPT) 21, Alkaline Phosphatase 61, Myoglobin 55.8, Troponin I 0.138H, B-Type Natriuretic Peptide 92.6, Total Protein 7.7, Albumin 4.0 07/07/19 10:50: Urine Color YELLOW, Urine Clarity CLEAR, Urine pH 5, Urine Specific Newborn 1.020, Urine Protein 2+H, Urine Glucose (UA) NEGATIVE, Urine Ketones NEGATIVE, Urine Nitrite NEGATIVE, Urine Bilirubin NEGATIVE, Urine Urobilinogen NORMAL, Urine Leukocyte Esterase 2+H, Urine RBC (Auto) NEGATIVE, Urine RBC NONE, Urine WBC 5-10H, Urine Squamous Epithelial Cells 25-50H, Urine Crystals PRESENTH, Urine Amorphous Sediment RARE SABRA URATESH, Urine Bacteria MODERATEH, Urine Casts NONE, Urine Mucus NEGATIVE, Urine Culture Indicated YES 07/07/19 11:15: Troponin I 0.123H Assessment/Plan Assessment/Plan Assessment/Plan Diffuse abdominal pain diarrhea Substance abuse - admitted using 2 weeks ago Stool culture IV fluids Clear liquid diet Conservative management at this time, if pain worsens or continues with no improvement will consider repeat CT scan of abdomen/pelvis. Currently there is no leukocytosis. Last CT scan of abdomen/pelvis was done on 07/02 and there was no acute process at that time. Clinical Quality Measures AMI/AHF: ASA po Prior to arrival: No DVT/VTE Risk/Contraindication: Risk Factor Score Per Nursin RFS Level Per Nursing on Admit: 3=High BECKI WILDER DO 07/08/19 2030: History of Present Illness History of Present Illness History of Present Illness Patient is a 58 year old female with diffuse abdominal pain and diarrhea multiple liquid stools per day. No blood in the stools. She states this began a few days ago and has continued. She has had episodes of chest pain as well. Her abdominal pain she states is all over but more in the epigastric and ruq. Rates pain a 9.5/10. Nothing she knows of makes it worse and nothing makes better. Patient also having nausea and some emesis. Patient recently admitted and required intubation. During that visit she had CT chest abdomen and pelvis that did not demonstrate any abdominal/pelvic pathology. Patient has history of meth use which she states last use was maybe 2 weeks ago. Allergies and Home Medications Allergies Coded Allergies: nitrous oxide (Verified Allergy, Unknown, 06/08/07) Home Medications Acetaminophen 500 Mg Tablet, 1,000 MG PO Q6H PRN for PAIN-MILD, (Reported) Amlodipine Besylate 10 Mg Tablet, 10 MG PO DAILY, (Reported) Clonidine HCl 0.2 Mg Tablet, 0.2 MG PO BID, (Reported) Cyclobenzaprine HCl 10 Mg Tablet, 10 MG PO BID PRN for MUSCLE SPASMS, (Reported) Hydralazine HCl 50 Mg Tablet, 50 MG PO TID, (Reported) Hydroxyzine HCl 25 Mg Tablet, 25 MG PO TID PRN for ANXIETY, (Reported) Losartan Potassium 100 Mg Tablet, 100 MG PO DAILY, (Reported) Metoprolol Succinate 100 Mg Tab.er.24h, 100 MG PO DAILY, (Reported) Oxcarbazepine 600 Mg Tablet, 600 MG PO BID, (Reported) Phenobarbital 97.2 Mg Tablet, 97.2 MG PO DAILY, (Reported) Prazosin HCl 1 Mg Capsule, 1 MG PO HS, (Reported) Ranitidine HCl 150 Mg Tablet, 150 MG PO HS, (Reported) Spironolactone 25 Mg Tablet, 25 MG PO DAILY, (Reported) Patient Home Medication List Home Medication List Reviewed: Yes Past Vwvzpqs-Kduilz-Hukysd Hx Patient Social History Recreational Drug Use: Yes Type Used: Cigarettes Surgeries Surgeries: Abdominal (Hernia repair), Adenoidectomy, Hysterectomy, Oophorectomy, Tonsillectomy Respiratory Respiratory Disorders: COPD Cardiovascular Cardiac Disorders: Hypertension, Valvular Heart Disease Neurological Neurological Disorders: Seizure Disorder, Stroke 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 System 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 Genitourinary Genitourinary Disorders: Kidney Infection, Bladder Infection, Kidney Stones, Renal Failure, UTI-Chronic Gastrointestinal Gastrointestinal Disorders: Gastroesophageal Reflux Musculoskeletal Musculoskeletal Disorders: Arthritis, Chronic Back Pain HEENT Hearing Impairment: Denies Psychosocial Behavioral Health Disorders: Anxiety, Bipolar, Depression Family Medical History Significant Family History: Diabetes Family Medial History: Abdominal aortic aneurysm 03 FATHER Alcoholism 03 FATHER 03 MOTHER 09 SISTER 09 SISTER Cancer 03 FATHER Cataract 03 FATHER 03 MOTHER Chest pain 03 MOTHER Family history: Diabetes mellitus 03 MOTHER Family history: Hypertension 03 MOTHER Family history: Thyroid disorder 03 MOTHER Headache 09 SISTER Heart disease 03 MOTHER History of drug abuse 03 FATHER 09 SISTER Myocardial infarction 03 MOTHER No Family History of: Isael's disease Aphasia Cancer of colon Congenital heart disease Congestive heart failure Cystic fibrosis Dementia Dysphagia Family history: Allergy Family history: Alzheimer's disease Family history: Arthritis Family history: Asthma Family history: Breast disease Family history: Cardiovascular disease Family history: Coronary thrombosis Family history: Gastrointestinal disease Family history: Glaucoma Family history: Osteoporosis Hearing loss Hereditary disease History of - anemia History of - disorder History of - respiratory disease Human immunodeficiency virus (HIV) seropositivity Hypercholesterolemia Infertile Kidney disease Malignant neoplasm of lung Parkinson's disease Prostate cancer Psychotic disorder Seizure disorder Stroke Tuberculosis Visual impairment Review of Systems-General Constitutional: no symptoms reported EENTM: no symptoms reported Respiratory: no symptoms reported Cardiovascular: no symptoms reported Gastrointestinal: see HPI Genitourinary: no symptoms reported Musculoskeletal: no symptoms reported Skin: no symptoms reported Psychiatric/Neurological: No Symptoms Reported Physical Exam-General Problems Physical Exam General Appearance: no apparent distress HEENT: PERRL/EOMI Neck: non-tender Respiratory: chest non-tender, no respiratory distress, no accessory muscle use Cardiovascular: regular rate, rhythm Gastrointestinal: soft; No guarding, No rebound; tenderness (diffuse, but exam changes and seems to be more tender in epigastric/ruq ) Rectal: deferred Back: no CVA tenderness Extremities: normal inspection, no pedal edema Neurologic/Psychiatric: alert, normal mood/affect, oriented x 3 Skin: normal color, warm/dry Lymphatic: no adenopathy Assessment/Plan Assessment/Plan Assessment/Plan Diffuse abdominal pain diarrhea Substance abuse stool cultures iv fluids clear liquid diet her exam on abdomen slightly changes but do not feel any acute surgical need at this time. If worsens would consider repeating ct abd/pelvis, but did have recent ct on 07/02 continue with conservative measures at this time, will follow. Supervisory-Addendum Brief Verification & Attestation Participated in pt care: history, MDM, physical Personally performed: exam, history, MDM, supervision of care Care discussed with: Medical Student Procedures: n/a Results interpretation: Verified all documentation Verification and Attestation of Medical Student E/M Service A medical student performed and documented this service in my presence. I reviewed and verified all information documented by the medical student and made modifications to such information, when appropriate. I personally performed the physical exam and medical decision making. Becki Wilder, Jul 07, 2019,20:36 TRACE HOYOS [facility] Jul 07, 2019 20:57 BECKI WILDER DO Jul 08, 2019 20:30
[2019-07-07] MEDS ORDERED: NON-FORMULARY MEDICATION 1 EA EA (Prazosin HCl 1 MG) PO SCH (21:00)
[2019-07-07] MEDS ORDERED: NON-FORMULARY MEDICATION 1 EA EA (Ranitidine HCl (Acid Reducer (RANITIDINE)) 150 MG) PO SCH (21:00)
[2019-07-07] MEDS ORDERED: NON-FORMULARY MEDICATION 1 EA EA (Hydralazine HCl 50 MG) PO SCH (21:00)
[2019-07-07] MEDS ORDERED: NON-FORMULARY MEDICATION 1 EA EA (Oxcarbazepine 600 MG) PO SCH (21:00)
[2019-07-07] MEDS ORDERED: NON-FORMULARY MEDICATION 1 EA EA (Clonidine HCl 0.2 MG) PO SCH (21:00)
[2019-07-07] MEDS: OXcarbazepine (TRILEPTAL) 300 MG TAB PO SCH (22:00)
[2019-07-07] MEDS: cloNIDine 0.2 MG (CATAPRES) TAB PO SCH (22:00)
[2019-07-07] MEDS: FAMOTIDINE 20 MG (PEPCID) TABLET PO SCH (22:00)
[2019-07-07] MEDS: hydrALAZINE (APRESOLINE) 25 MG TAB PO SCH (22:00)
[2019-07-08] VITALS: BP 134/62
[2019-07-08 00:08] LABS: BILIRUBIN,URINE NEGATIVE (NEGATIVE); CLARITY,URINE CLEAR; COLOR,URINE YELLOW; GLUCOSE, URINE (UA) 1+ (NEGATIVE); KETONES,URINE NEGATIVE (NEGATIVE); LEUKOCYTE ESTERASE ,URINE NEGATIVE (NEGATIVE); NITRITE,URINE NEGATIVE (NEGATIVE); PH,URINE 5 (5-9); PROTEIN,URINE NEGATIVE (NEGATIVE); UROBILINOGEN,URINE NORMAL (NORMAL)
[2019-07-08 00:16] LABS: BACTERIA,URINE TRACE /HPF; SQUAMOUS EPITHELIAL CELL,UR 0-2 /HPF
[2019-07-08] MEDS: NS IV 1000 ML 1,000 ML IV SCH ×3 (03:28→20:07)
[2019-07-08 04:20] VITALS: BP 176/84
[2019-07-08 04:36] LABS: BASOPHILS % (AUTO) 0 % (0-10); EOSINOPHILS # (AUTO) 0.4 10^3/uL (0.0-0.3); EOSINOPHILS % (AUTO) 7 % (0-10); HEMATOCRIT 36 % (35-52); HEMOGLOBIN 11.4 G/DL (11.5-16.0); LYMPHOCYTES # (AUTO) 2.3 X 10^3 (1.0-4.0); LYMPHOCYTES % (AUTO) 42 % (12-44); MEAN CORPUSCULAR HEMOGLOBIN 29 PG (25-34); MEAN CORPUSCULAR HGB CONC 31 G/DL (32-36); MEAN CORPUSCULAR VOLUME 93 FL (80-99); MEAN PLATELET VOLUME 9.8 FL (7.4-10.4); MONOCYTES # (AUTO) 0.4 X 10^3 (0.0-1.0); MONOCYTES % (AUTO) 7 % (0-12); NEUTROPHILS # (AUTO) 2.4 X 10^3 (1.8-7.8); NEUTROPHILS % (AUTO) 44 % (42-75); PLATELET COUNT 390 10^3/uL (130-400); RED CELL DISTRIBUTION WIDTH 15.6 % (10.0-14.5); WHITE BLOOD COUNT 5.4 10^3/uL (4.3-11.0)
[2019-07-08 05:19] LABS: CHOLESTEROL 170 MG/DL (< 200); HDL CHOLESTEROL 45 MG/DL (40-60); TRIGLYCERIDES 230 MG/DL (<150); VLDL CHOLESTEROL 46 MG/DL (5-40)
[2019-07-08 05:21] LABS: ALBUMIN 3.5 GM/DL (3.2-4.5); BILIRUBIN,TOTAL 0.2 MG/DL (0.1-1.0); CALCIUM 8.2 MG/DL (8.5-10.1); CREATININE SERUM 1.31 MG/DL (0.60-1.30); POTASSIUM 5.5 MMOL/L (3.6-5.0); TOTAL PROTEIN 6.7 GM/DL (6.4-8.2)
--- NOTE | 2019-07-08 07:42 | Progress Note - Surgery ---
TRACE HOYOS [facility] 07/08/19 0742: Subjective Date Seen by a Provider: Jul 08, 2019 Time Seen by a Provider: 07:19 Subjective/Events-last exam Patient reports that belly pain has improved. 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 epigastric and umbilical area. Patient reports this pain is radiating to her right back area. Patient also reports chest pain which she indicated was around the length of the esophagus and pain is rated 8-9/10 at its worse. Diarrhea has resolved. Chest pain and belly pain are not improved or worsened by anything. Patient is tolerating diet and is ambulating without pain. Focused Exam Lactate Level 07/07/19 07:00: Lactic Acid Level 1.48 Objective Exam Vital Signs Date Time Temp Pulse Resp B/P (MAP) Pulse Ox O2 Delivery O2 Flow Rate FiO2 07/08/19 07:00 92 07/08/19 04:20 36.8 90 20 176/84 (114) 98 Nasal Cannula 2.00 07/08/19 01:27 89 07/08/19 00:00 36.8 94 18 134/62 (86) 99 Nasal Cannula 2.00 07/07/19 23:00 Nasal Cannula 2.00 07/07/19 20:10 36.7 80 20 144/79 (100) 100 Nasal Cannula 2.00 07/07/19 20:00 Nasal Cannula 2.00 07/07/19 19:00 71 07/07/19 16:55 36.1 77 20 144/77 (99) 100 Nasal Cannula 2.00 07/07/19 12:00 36.8 84 20 108/71 (83) 90 Nasal Cannula 2.00 07/07/19 10:45 36.8 84 20 108/71 90 Nasal Cannula 2.00 07/07/19 10:40 Nasal Cannula 2.00 07/07/19 10:40 78 16 105/75 98 Nasal Cannula 2.00 07/07/19 10:30 90 Nasal Cannula 2.00 I & O 07/08/19 07:00 Intake Total 4806 ml Balance 4806 ml Capillary Refill : Less Than 3 Seconds General Appearance: No Apparent Distress, WD/WN, Chronically ill HEENT: PERRL/EOMI, Normal ENT Inspection, Pharynx Normal, Moist Mucous Membranes Neck: Full Range of Motion, Normal Inspection, Non Tender, Supple Respiratory: Chest Non Tender, Lungs Clear, Normal Breath Sounds, No Accessory Muscle Use, No Respiratory Distress Cardiovascular: Regular Rate, Rhythm, No Edema, No Gallop, No JVD, No Murmur, Normal Peripheral Pulses Gastrointestinal: soft; No guarding, No rebound; tenderness Extremity: Normal Inspection, Normal Range of Motion, Non Tender, No Calf Tenderness, No Pedal Edema Neurologic/Psychiatric: Alert, Oriented x3, No Motor/Sensory Deficits, Normal Mood/Affect Skin: Normal Color, Warm/Dry Lymphatic: No Adenopathy Results Lab Laboratory Tests 07/07/19 10:50: Urine Color YELLOW, Urine Clarity CLEAR, Urine pH 5, Urine Specific [place] 1.020, Urine Protein 2+H, Urine Glucose (UA) NEGATIVE, Urine Ketones NEGATIVE, Urine Nitrite NEGATIVE, Urine Bilirubin NEGATIVE, Urine Urobilinogen NORMAL, Urine Leukocyte Esterase 2+H, Urine RBC (Auto) NEGATIVE, Urine RBC NONE, Urine WBC 5-10H, Urine Squamous Epithelial Cells 25-50H, Urine Crystals PRESENTH, Urine Amorphous Sediment RARE SABRA URATESH, Urine Bacteria MODERATEH, Urine Casts NONE, Urine Mucus NEGATIVE, Urine Culture Indicated YES 07/07/19 11:15: Troponin I 0.123H 07/07/19 23:55: Urine Color YELLOW, Urine Clarity CLEAR, Urine pH 5, Urine Specific [place] 1.010L, Urine Protein NEGATIVE, Urine Glucose (UA) 1+H, Urine Ketones NEGATIVE, Urine Nitrite NEGATIVE, Urine Bilirubin NEGATIVE, Urine Urobilinogen NORMAL, Urine Leukocyte Esterase NEGATIVE, Urine RBC (Auto) NEGATIVE, Urine RBC NONE, Urine WBC NONE, Urine Squamous Epithelial Cells 0-2, Urine Crystals NONE, Urine Bacteria TRACE, Urine Casts NONE, Urine Mucus NEGATIVE, Urine Culture Indicated NO 07/08/19 04:27: White Blood Count 5.4, Red Blood Count 3.93L, Hemoglobin 11.4L, Hematocrit 36, Mean Corpuscular Volume 93, Mean Corpuscular Hemoglobin 29, Mean Corpuscular Hemoglobin Concent 31L, Red Cell Distribution Width 15.6H, Platelet Count 390, Mean Platelet Volume 9.8, Neutrophils (%) (Auto) 44, Lymphocytes (%) (Auto) 42, Monocytes (%) (Auto) 7, Eosinophils (%) (Auto) 7, Basophils (%) (Auto) 0, Neutrophils # (Auto) 2.4, Lymphocytes # (Auto) 2.3, Monocytes # (Auto) 0.4, Eosinophils # (Auto) 0.4H, Basophils # (Auto) 0.0, Sodium Level 136, Potassium Level 5.5H, Chloride Level 112H, Carbon Dioxide Level 19L, Anion Gap 5, Blood Urea Nitrogen 30H, Creatinine 1.31H, Estimat Glomerular Filtration Rate 42, BUN/Creatinine Ratio 23, Glucose Level 84, Calcium Level 8.2L, Corrected Calcium 8.6, Total Bilirubin 0.2, Aspartate Amino Transf (AST/SGOT) 11, Alanine Aminotransferase (ALT/SGPT) 15, Alkaline Phosphatase 66, Total Protein 6.7, Albumin 3.5, Triglycerides Level 230H, Cholesterol Level 170, LDL Cholesterol Direct 72, VLDL Cholesterol 46H, HDL Cholesterol 45 Assessment/Plan Assessment/Plan Assessment/Plan Diffuse abdominal pain diarrhea - resolved Substance abuse - admitted using 2 weeks ago Anemia - (Dilutional) Hgb is at 11.4 as of today Stool culture IV fluids Clear liquid diet Conservative management at this time, if pain worsens or continues with no improvement will consider repeat CT scan of abdomen/pelvis. Currently there is no leukocytosis. Last CT scan of abdomen/pelvis was done on 07/02 and there was no acute process at that time. Clinical Quality Measures AMI/AHF: ASA po Prior to arrival: No DVT/VTE Risk/Contraindication: Risk Factor Score Per Nursin RFS Level Per Nursing on Admit: 3=High WILLIAMS WILDER DO 07/08/192044: Subjective Subjective/Events-last exam Patient stating her abdominal pain has improved only having it on occasion. She is wanting food. Not having any more diarrhea. Pain now she states may be more in the chest again and stating it moves around all the time. She is tolerating liquids. Denies n/v fever sweats chills shortness of breath or chest pain at this time. WBC normal Objective Exam General Appearance: No Apparent Distress HEENT: PERRL/EOMI Neck: Normal Inspection, Non Tender Respiratory: Chest Non Tender, No Accessory Muscle Use, No Respiratory Distress Cardiovascular: Regular Rate, Rhythm Gastrointestinal: soft, tenderness (minimal tenderness in the epigastric region) Extremity: Non Tender Neurologic/Psychiatric: Alert, Oriented x3, No Motor/Sensory Deficits, Normal Mood/Affect Skin: Normal Color, Warm/Dry Lymphatic: No Adenopathy Assessment/Plan Assessment/Plan Assessment/Plan diffuse abdominal pain diarrhea substance abuse patient improving with bowel rest, not having diarrhea now, but if does get cul ture continue liquids today and if better advance tomorrow improving, don't feel need repeat ct at this time but if worsens would consider will follow Supervisory-Addendum Brief Verification & Attestation Participated in pt care: history, MDM, physical Personally performed: exam, history, MDM, supervision of care Care discussed with: Medical Student Procedures: n/a Results interpretation: Verified all documentation Verification and Attestation of Medical Student E/M Service A medical student performed and documented this service in my presence. I reviewed and verified all information documented by the medical student and made modifications to such information, when appropriate. I personally performed the physical exam and medical decision making. Williams Wilder, Jul 08, 2019,20:44 TRACE HOYOS [facility] Jul 08, 2019 07:42 WILLIAMS WILDER DO Jul 08, 2019 20:45
[2019-07-08 08:00] VITALS: BP 122/85
[2019-07-08] MEDS ORDERED: NON-FORMULARY MEDICATION 1 EA EA (Amlodipine Besylate 10 MG) PO SCH (09:00)
[2019-07-08] MEDS: cloNIDine 0.2 MG (CATAPRES) TAB PO SCH ×2 (09:01→20:07)
[2019-07-08] MEDS: meTOprolol SUCCINATE 100 MG (TOPROL XL) TAB PO SCH (09:01)
[2019-07-08] MEDS: OXcarbazepine (TRILEPTAL) 300 MG TAB PO SCH ×2 (09:01→20:07)
[2019-07-08] MEDS: amLODIPine 10 MG (NORVASC) TAB PO SCH (09:01)
[2019-07-08] MEDS: hydrALAZINE (APRESOLINE) 25 MG TAB PO SCH ×3 (09:01→20:07)
[2019-07-08] MEDS: PHENobarbital 97.2 MG (1-1/2 GRAIN) TABLET PO SCH (09:01)
[2019-07-08] MEDS: ASPIRIN 81 MG CHEW (CHILDREN'S ASA) PO SCH (09:01)
--- NOTE | 2019-07-08 09:03 | NUR ---
prior to a.m, medications pulse was 100 and b/p was 122/85.
--- NOTE | 2019-07-08 10:21 | Progress Note - Hospitalist ---
Subjective HPI/CC On Admission Date Seen by Provider: Jul 08, 2019 Time Seen by Provider: 09:30 Chief complaint: Abdominal pain with severe diarrhea and elevated troponin History of present illness: This is a 58-year-old white female that I just discharged after she had a seizure and apparently used meth had an unresponsive episode and was intubated in the ER sent to the ICU Dr. Balderrama extubated quickly and she was maintained on close monitoring treated for UTI with Rocephin for 4 days and was well enough to go home of which she agreed to then she presented to the ER with severe dehydration weakness from severe diarrhea was found to be in need of hospitalization because of elevated creatinine and elevated troponin prompting aggressive IV fluids in addition to cardiology consultation and general surgery consultation due to distended abdomen. At this current time patient feels a little better but is drowsy but she is oriented x3 and she remembers who I am. Focused Exam Lactate Level 07/07/19 07:00: Lactic Acid Level 1.48 Objective Exam Vital Signs Vital Signs Date Time Temp Pulse Resp B/P (MAP) Pulse Ox O2 Delivery O2 Flow Rate FiO2 07/08/19 08:00 37.2 100 18 122/85 (97) 99 Nasal Cannula 1.50 Capillary Refill : Less Than 3 Seconds Results/Procedures Lab Laboratory Tests 07/08/19 04:27 Patient resulted labs reviewed. Diagnosis/Problems Diagnosis/Problems (1) Dehydration Status: Acute (2) Acute on chronic renal insufficiency Status: Acute (3) Watery diarrhea Status: Acute (4) Distended abdomen Status: Acute (5) Drug abuse Status: Acute (6) Hypertensive urgency Status: Acute Clinical Quality Measures AMI/AHF: ASA po Prior to arrival: No DVT/VTE Risk/Contraindication: Risk Factor Score Per Nursin RFS Level Per Nursing on Admit: 3=High RAJAN VALDOVINOS DO Jul 08, 2019 10:21
--- NOTE | 2019-07-08 11:35 | Progress Note - Hospitalist ---
[facility] 07/08/19 1135: Subjective HPI/CC On Admission Date Seen by Provider: Jul 08, 2019 Time Seen by Provider: 11:05 Chief complaint: Abdominal pain with severe diarrhea and elevated troponin History of present illness: This is a 58-year-old white female that I just discharged after she had a seizure and apparently used meth had an unresponsive episode and was intubated in the ER sent to the ICU Dr. Balderrama extubated quickly and she was maintained on close monitoring treated for UTI with Rocephin for 4 days and was well enough to go home of which she agreed to then she presented to the ER with severe dehydration weakness from severe diarrhea was found to be in need of hospitalization because of elevated creatinine and elevated troponin prompting aggressive IV fluids in addition to cardiology consultation and general surgery consultation due to distended abdomen. At this current time patient feels a little better but is drowsy but she is oriented x3 and she remembers who I am. Subjective/Events-last exam Vitals are stable and normal. Slept well. Drinking well. Ate jello and crackers. Tolerated well. Voiding well. No BM reported. Ambulating well with walker. Review of Systems General: No Chills, No Night Sweats, No Fatigue, No Malaise, No Appetite, No Other HEENT: No Head Aches, No Visual Changes, No Eye Pain, No Ear Pain, No Dysphasia, No Sinus Congestion, No Post Nasal Drip, No Sore Throat, No Other Pulmonary: No Dyspnea, No Cough, No Pleuritic Chest Pain, No Other Cardiovascular: No: Chest Pain, Palpitations, Orthopnea, Paroxysmal Noc. Dyspnea, Edema, Lt Headedness, Other Gastrointestinal: No: Nausea, Vomiting, Abdominal Pain, Diarrhea, Constipation, Melena, Hematochezia, Other Genitourinary: No Dysuria, No Frequency, No Incontinence, No Hematuria, No Retention, No Other Musculoskeletal: No: other, neck pain, shoulder pain, arm pain, back pain, hand pain, leg pain, foot pain Neurological: No: Weakness, Numbness, Incoordination, Change in speech, Confusi on, Seizures, Other Focused Exam Lactate Level 07/07/19 07:00: Lactic Acid Level 1.48 Objective Exam Vital Signs Vital Signs Date Time Temp Pulse Resp B/P (MAP) Pulse Ox O2 Delivery O2 Flow Rate FiO2 07/08/19 08:00 37.2 100 18 122/85 (97) 99 Nasal Cannula 1.50 Capillary Refill : Less Than 3 Seconds General Appearance: No Apparent Distress, WD/WN HEENT: PERRL/EOMI, Normal ENT Inspection, Moist Mucous Membranes Respiratory: Chest Non Tender, Lungs Clear, Normal Breath Sounds, No Accessory Muscle Use, No Respiratory Distress Cardiovascular: Regular Rate, Rhythm, No Edema, No Gallop, No JVD, No Murmur, Normal Peripheral Pulses Gastrointestinal: Normal Bowel Sounds, Non Tender, Soft Neurologic/Psychiatric: Alert, Oriented x3, No Motor/Sensory Deficits, 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 Assessment/Plan Assessment and Plan Assess & Plan/Chief Complaint Assessment: 1. Dehydration 2. Elevated Troponins 3. Substance abuse Plan: 1. Tolerate solid food and fluids 2. NSAIDs for chest pain. 3. Program to help cessation Clinical Quality Measures AMI/AHF: ASA po Prior to arrival: No DVT/VTE Risk/Contraindication: Risk Factor Score Per Nursin RFS Level Per Nursing on Admit: 3=High DEEPIKA VALDOVINOS DO 07/08/19 1804: Subjective Subjective/Events-last exam Pt doing well. Cardiology, Dr. Jenkins evaluated the Pt to have non-cardiac source for elevated Troponin and risk out-weighed the benefits with proceeding on to have a cardiac catheterization since it was normal last year. Checked meds and labs. Wants to eat and drink. Creatinine 1.3. Assessment/Plan Assessment and Plan Assess & Plan/Chief Complaint Assessment: Ileus Elevated troponin ARF Sz d/o Diagnosis/Problems Diagnosis/Problems (1) Distended abdomen Status: Acute (2) Hypertensive urgency Status: Acute (3) Drug abuse Status: Acute (4) Dehydration Status: Acute (5) Acute on chronic renal insufficiency Status: Acute (6) Watery diarrhea Status: Acute (7) Seizure Status: Acute Supervisory-Addendum Brief Verification & Attestation Participated in pt care: history, MDM, physical Personally performed: exam, history, MDM, supervision of care Care discussed with: Medical Student Procedures: n/a Results interpretation: Verified all documentation Verification and Attestation of Medical Student E/M Service A medical student performed and documented this service in my presence. I reviewed and verified all information documented by the medical student and made modifications to such information, when appropriate. I personally performed the physical exam and medical decision making. Deepika Valdovinos, Jul 08, 2019,18:04 [facility] Jul 08, 2019 11:35 DEEPIKA VALDOVINOS DO Jul 08, 2019 18:04
[2019-07-08 12:00] VITALS: BP 131/85
--- NOTE | 2019-07-08 14:21 | Cardiology Progress Note ---
Cardiology SOAP Progress Note Subjective: Reproducible chest pain. Objective: I&O/Vital Signs 07/08/19 07/08/19 07/08/19 07/08/19 04:20 07:00 08:00 08:00 Temp 36.8 37.2 Pulse 90 92 100 Resp 20 18 B/P (MAP) 176/84 (114) 122/85 (97) Pulse Ox 98 98 99 O2 Delivery Nasal Cannula Nasal Cannula Nasal Cannula O2 Flow Rate 2.00 2.00 1.50 07/08/19 07/08/19 12:00 12:29 Temp 36.7 Pulse 89 84 Resp 20 B/P (MAP) 131/85 (100) Pulse Ox 96 O2 Delivery Nasal Cannula O2 Flow Rate 1.00 07/08/19 00:00 Intake Total 3600 ml Balance 3600 ml Weight (Pounds): 155 Weight (Ounces): 8.0 Weight (Calculated Kilograms): 70.219107 Constitutional: appears stated age, AAO x 3; No apparent distress; well- developed, well-nourished Respiratory: No accessory muscle use, No respiratory distress, No chest tender, No chest expansion is symmetric; chest is bilaterally symmetric; No lungs clear to percussion; lungs clear to auscultation; No crackles, No rhonchi, No rales, No stridor, No wheezing, No pleural rub, No other Cardiovascular: regular rate-rhythm; No irregularly irregular, No extra beats, No parasternal heave is noted, No JVD, No edema, No bradycardia, No tachycardia, No point of maximal impulse, No cardiac thrills are palpable; S1 and S2; No gallop/S3, No gallop/S4, No diastolic murmur, No systolic murmur, No friction rub, No click, No other Gastrointestional: soft, round, audible bowel sounds; No spleenomegaly Extremities: normal range of motion, non-tender, normal inspection; No clubbing, No cyanosis; no lower extremity edema bilateral; No significant edema Neurologic/Psychiatric: no motor/sensory deficits, alert, normal mood/affect, oriented x 3, power is 5/5 both on sides Skin: normal color; No rash, No ulcerations Results/Procedures: Labs Laboratory Tests 07/07/19 23:55: Urine Color YELLOW, Urine Clarity CLEAR, Urine pH 5, Urine Specific Stanton 1.010L, Urine Protein NEGATIVE, Urine Glucose (UA) 1+H, Urine Ketones NEGATIVE, Urine Nitrite NEGATIVE, Urine Bilirubin NEGATIVE, Urine Urobilinogen NORMAL, Urine Leukocyte Esterase NEGATIVE, Urine RBC (Auto) NEGATIVE, Urine RBC NONE, Urine WBC NONE, Urine Squamous Epithelial Cells 0-2, Urine Crystals NONE, Urine Bacteria TRACE, Urine Casts NONE, Urine Mucus NEGATIVE, Urine Culture Indicated NO 07/08/19 04:27: White Blood Count 5.4, Red Blood Count 3.93L, Hemoglobin 11.4L, Hematocrit 36, Mean Corpuscular Volume 93, Mean Corpuscular Hemoglobin 29, Mean Corpuscular Hemoglobin Concent 31L, Red Cell Distribution Width 15.6H, Platelet Count 390, Mean Platelet Volume 9.8, Neutrophils (%) (Auto) 44, Lymphocytes (%) (Auto) 42, Monocytes (%) (Auto) 7, Eosinophils (%) (Auto) 7, Basophils (%) (Auto) 0, Neutrophils # (Auto) 2.4, Lymphocytes # (Auto) 2.3, Monocytes # (Auto) 0.4, Eosinophils # (Auto) 0.4H, Basophils # (Auto) 0.0, Sodium Level 136, Potassium Level 5.5H, Chloride Level 112H, Carbon Dioxide Level 19L, Anion Gap 5, Blood Urea Nitrogen 30H, Creatinine 1.31H, Estimat Glomerular Filtration Rate 42, BUN/Creatinine Ratio 23, Glucose Level 84, Calcium Level 8.2L, Corrected Calcium 8.6, Total Bilirubin 0.2, Aspartate Amino Transf (AST/SGOT) 11, Alanine Aminotransferase (ALT/SGPT) 15, Alkaline Phosphatase 66, Total Protein 6.7, Albumin 3.5, Triglycerides Level 230H, Cholesterol Level 170, LDL Cholesterol Direct 72, VLDL Cholesterol 46H, HDL Cholesterol 45 Microbiology 07/07/19 Urine Culture - Final, Complete 3 or more isolates A/P: Assessment/Dx: Chest pain, positive troponin, Diarrhea, Acute kidney injury, History of LV systolic dysfunction, Mild CAD, Hypertension Plan: Chest pain, positive troponin, serial troponin did not reveal any significant rise, in fact troponin is decreasing. Could be secondary to acute respiratory failure daily as ago. Also the chest pain is reproducible. She had coronary angiography in February 2018 which showed very mild CAD. Diarrhea, IV fluids. Acute kidney injury, IV fluids. History of LV systolic dysfunction, continue outpatient medical therapy of cardiomyopathy. I will recommend an echocardiogram to review LV function. Mild CAD, based on coronary angiography in 02/2018. Hypertension, well controlled. Thank you for your consultation. Please call me if you have any questions. Brinda Jenkins MD, FACP, FACC, FSCAI, FHRS, CCDS Interventional Cardiology Cardiac Electrophysiology Vascular Medicine and Endovascular Interventions Focused Exam Lactate Level 07/07/19 07:00: Lactic Acid Level 1.48 Clinical Quality Measures AMI/AHF: ASA po Prior to arrival: Paolo Rodriguez MD Jul 08, 2019 14:21
[2019-07-08] MEDS: ENOXAPARIN 40 MG/0.4 ML (LOVENOX) SYR SQ SCH (15:05)
--- NOTE | 2019-07-08 15:43 | NUR ---
CM/SS received call from (Racheal Alarcon) [place] [facility]. She has an open Class 1 investigation. She would like a call when patient discharges ([phone]).
[2019-07-08] MEDS ORDERED: REGADENOSON 0.4 MG/5 ML SYR (LEXISCAN) IV ONE (15:45)
[2019-07-08 16:08] VITALS: BP 141/72
[2019-07-08 19:59] VITALS: BP 152/81
[2019-07-08] MEDS: ACETAMINOPHEN 500 MG TAB (TYLENOL) PO PRN (20:06)
[2019-07-08] MEDS: FAMOTIDINE 20 MG (PEPCID) TABLET PO SCH (20:07)
[2019-07-08] MEDS: hydrOXYzine (VISTARIL/ATARAX) 25 MG capsule/tablet PO PRN (20:07)
[2019-07-09] VITALS (9 sets, daily range): BP systolic 134–196; BP diastolic 82–110
[2019-07-09] MEDS: NS IV 1000 ML 1,000 ML IV SCH (03:30)
[2019-07-09 04:58] LABS: BASOPHILS % (AUTO) 0 % (0-10); EOSINOPHILS # (AUTO) 0.3 10^3/uL (0.0-0.3); EOSINOPHILS % (AUTO) 9 % (0-10); HEMATOCRIT 32 % (35-52); HEMOGLOBIN 10.1 G/DL (11.5-16.0); LYMPHOCYTES # (AUTO) 1.4 X 10^3 (1.0-4.0); LYMPHOCYTES % (AUTO) 46 % (12-44); MEAN CORPUSCULAR HEMOGLOBIN 29 PG (25-34); MEAN CORPUSCULAR HGB CONC 32 G/DL (32-36); MEAN CORPUSCULAR VOLUME 93 FL (80-99); MEAN PLATELET VOLUME 9.7 FL (7.4-10.4); MONOCYTES # (AUTO) 0.2 X 10^3 (0.0-1.0); MONOCYTES % (AUTO) 7 % (0-12); NEUTROPHILS # (AUTO) 1.2 X 10^3 (1.8-7.8); NEUTROPHILS % (AUTO) 37 % (42-75); PLATELET COUNT 338 10^3/uL (130-400); RED CELL DISTRIBUTION WIDTH 15.1 % (10.0-14.5); WHITE BLOOD COUNT 3.1 10^3/uL (4.3-11.0)
[2019-07-09 05:31] LABS: ALBUMIN 3.4 GM/DL (3.2-4.5); BILIRUBIN,TOTAL 0.2 MG/DL (0.1-1.0); CREATININE SERUM 1.05 MG/DL (0.60-1.30); POTASSIUM 5.2 MMOL/L (3.6-5.0); TOTAL PROTEIN 6.1 GM/DL (6.4-8.2)
[2019-07-09] MEDS: ACETAMINOPHEN 500 MG TAB (TYLENOL) PO PRN ×2 (05:42→19:45)
[2019-07-09] MEDS: amLODIPine 10 MG (NORVASC) TAB PO SCH (05:42)
[2019-07-09] MEDS: hydrALAZINE (APRESOLINE) 25 MG TAB PO SCH ×3 (05:43→19:38)
[2019-07-09] MEDS: cloNIDine 0.2 MG (CATAPRES) TAB PO SCH ×2 (05:43→19:37)
--- NOTE | 2019-07-09 05:45 | NUR ---
PATIENT BP 184/110 (CHECKED WITH MANUAL CUFF) PULSE RATE 86. DR DEGROOT NOTIFIED OF BP AND ORDER RECEIVED TO GIVE AM BP MEDICATIONS NOW (CLONIDINE, HYDRALAZINE, NORVASC) AND D/C NORMAL SALINE AT 125ML/HR, SALINE LOCK IV. PATIENT IS TAKING IN BETWEEN 1200-3100ML/Q8HR PO. PATIENT DENIES HEADACHE, DIZZINESS, VISION CHANGES. PATIENT DOES REPORT RLQ ABDOMINAL PAIN. PRN TYLENOL ADMINISTERED.
--- NOTE | 2019-07-09 06:22 | Progress Note - Surgery ---
[facility] 07/09/19 0622: Subjective Date Seen by a Provider: Jul 09, 2019 Time Seen by a Provider: 06:06 Subjective/Events-last exam Patient says she "is good". Reports belly pain has improved but she feels some pain still on the RUQ, no more radiation to her back. Chest pain around the length of the esophagus has improved. Patient is asking to advance diet. She is tolerating current liquid diet. Ambulating without any issue. She says diarrhea has improved and frequency has gone down, but is having soft non-painless or bloody bowel movements. denies fever, nausea, vomiting, chills, shortness of breath, or pain along any extremity. Focused Exam Lactate Level 07/07/19 07:00: Lactic Acid Level 1.48 Objective Exam Vital Signs Date Time Temp Pulse Resp B/P (MAP) Pulse Ox O2 Delivery O2 Flow Rate FiO2 07/09/19 04:15 36.8 86 20 184/110 (134) 98 Room Air 07/09/19 00:42 89 07/09/19 00:03 36.6 83 21 134/82 (99) 97 Room Air 07/08/19 20:37 Nasal Cannula 2.00 07/08/19 19:59 36.5 91 20 152/81 (104) 100 Room Air 07/08/19 19:00 88 07/08/19 16:08 36.8 92 18 141/72 (95) 94 Room Air 07/08/19 12:29 84 07/08/19 12:00 36.7 89 20 131/85 (100) 96 Nasal Cannula 1.00 07/08/19 08:00 37.2 100 18 122/85 (97) 99 Nasal Cannula 1.50 07/08/19 08:00 98 Nasal Cannula 2.00 07/08/19 07:00 92 I & O 07/09/19 07:00 Intake Total 3301 ml Balance 3301 ml Capillary Refill : Less Than 3 Seconds General Appearance: No Apparent Distress HEENT: PERRL/EOMI, Pharynx Normal Neck: Normal Inspection, Non Tender, Supple Respiratory: Chest Non Tender, No Accessory Muscle Use, No Respiratory Distress Cardiovascular: Regular Rate, Rhythm, No Edema Gastrointestinal: non tender, soft Extremity: Normal Inspection, Non Tender, No Calf Tenderness, No Pedal Edema Neurologic/Psychiatric: Alert, Oriented x3, No Motor/Sensory Deficits, Normal Mood/Affect Skin: Normal Color, Warm/Dry Lymphatic: No Adenopathy Results Lab Laboratory Tests 07/09/19 04:45: White Blood Count 3.1L, Red Blood Count 3.46L, Hemoglobin 10.1L, Hematocrit 32L, Mean Corpuscular Volume 93, Mean Corpuscular Hemoglobin 29, Mean Corpuscular Hemoglobin Concent 32, Red Cell Distribution Width 15.1H, Platelet Count 338, Mean Platelet Volume 9.7, Neutrophils (%) (Auto) 37L, Lymphocytes (%) (Auto) 46H , Monocytes (%) (Auto) 7, Eosinophils (%) (Auto) 9, Basophils (%) (Auto) 0, Neutrophils # (Auto) 1.2L, Lymphocytes # (Auto) 1.4, Monocytes # (Auto) 0.2, Eosinophils # (Auto) 0.3, Basophils # (Auto) 0.0, Sodium Level 141, Potassium Level 5.2H, Chloride Level 118H, Carbon Dioxide Level 16L, Anion Gap 7, Blood Urea Nitrogen 20H, Creatinine 1.05, Estimat Glomerular Filtration Rate 54, BUN/Creatinine Ratio 19, Glucose Level 77, Calcium Level 8.0L, Corrected Calcium 8.5, Total Bilirubin 0.2, Aspartate Amino Transf (AST/SGOT) 11, Alanine Aminotransferase (ALT/SGPT) 17, Alkaline Phosphatase 59, Total Protein 6.1L, Albumin 3.4 Microbiology 07/07/19 Blood Culture - Preliminary, Resulted No growth 07/07/19 Urine Culture - Final, Complete 3 or more isolates Assessment/Plan Assessment/Plan Assessment/Plan diffuse abdominal pain - pain is now only on RUQ, but she was not tender to palpation. diarrhea - resolved substance abuse patient improving with bowel rest, not having diarrhea now, stool cultures pending improving, don't feel need repeat ct at this time but if worsens would consider will follow Clinical Quality Measures AMI/AHF: ASA po Prior to arrival: No DVT/VTE Risk/Contraindication: Risk Factor Score Per Nursin RFS Level Per Nursing on Admit: 3=High DEEPIKA VALDOVINOS DO 07/09/19 2140: Subjective Subjective/Events-last exam Pt had a seizure during the stress test Stress test is pending PT and OT will be ordered Inpatient rehab may be an option due to the readmission that she had just recently Creatinine is 1.05 IV fluids were heplocked BP much better controlled Still having some diarrhea but a little better Pt in agreement with strengthening before going home Assessment/Plan Assessment/Plan Assessment/Plan F/U EST IRF? PT/OT Monitor BP Diagnosis/Problems Diagnosis/Problems (1) Distended abdomen Status: Acute (2) Hypertensive urgency Status: Acute (3) Dehydration Status: Acute (4) Acute on chronic renal insufficiency Status: Acute (5) Watery diarrhea Status: Acute (6) Seizure Status: Acute (7) Chest pain Status: Acute Supervisory-Addendum Brief Verification & Attestation Participated in pt care: history, MDM, physical Personally performed: exam, history, MDM, supervision of care Care discussed with: Medical Student Procedures: n/a Results interpretation: Verified all documentation Verification and Attestation of Medical Student E/M Service A medical student performed and documented this service in my presence. I reviewed and verified all information documented by the medical student and made modifications to such information, when appropriate. I personally performed the physical exam and medical decision making. Deepika Valdovinos, Jul 09, 2019,21:40 [facility] Jul 09, 2019 06:22 DEEPIKA VALDOVINOS DO Jul 09, 2019 21:40
[2019-07-09] MEDS ORDERED: CATHETER FLUSH 10 ML SYR IV PRN (07:00)
--- NOTE | 2019-07-09 07:20 | NUR ---
Pt left floor for Heena Scan at this time with Radiology staff.
[2019-07-09] MEDS ORDERED: REGADENOSON 0.4 MG/5 ML SYR (LEXISCAN) IV ONE (07:45)
--- NOTE | 2019-07-09 08:35 | NUR ---
informed of pt having approx a 1 minute seizure. Floor rn Carrie updated to witnessed approx 1 minute seizure, she will notify dr. antunez. seizure activity occured at 0826. seizure resolved on own, only complaint upon return of LOC was a headache.
--- NOTE | 2019-07-09 08:35 | NUR ---
YARIEL Byrnes from lab coordinator, called this RN to inform that pt had an approx 1 minute seizure while down there. No meds were given and seizure resolved on its own.
[2019-07-09] MEDS: OXcarbazepine (TRILEPTAL) 300 MG TAB PO SCH ×2 (09:24→19:38)
[2019-07-09] MEDS: PHENobarbital 97.2 MG (1-1/2 GRAIN) TABLET PO SCH (09:24)
[2019-07-09] MEDS: ASPIRIN 81 MG CHEW (CHILDREN'S ASA) PO SCH (09:24)
[2019-07-09] MEDS: meTOprolol SUCCINATE 100 MG (TOPROL XL) TAB PO SCH (09:25)
--- NOTE | 2019-07-09 12:41 | Progress Note - Hospitalist ---
[facility] 07/09/19 1241: Subjective HPI/CC On Admission Date Seen by Provider: Jul 09, 2019 Time Seen by Provider: 11:20 Chief complaint: Abdominal pain with severe diarrhea and elevated troponin History of present illness: This is a 58-year-old white female that I just discharged after she had a seizure and apparently used meth had an unresponsive episode and was intubated in the ER sent to the ICU Dr. Balderrama extubated quickly and she was maintained on close monitoring treated for UTI with Rocephin for 4 days and was well enough to go home of which she agreed to then she presented to the ER with severe dehydration weakness from severe diarrhea was found to be in need of hospitalization because of elevated creatinine and elevated troponin prompting aggressive IV fluids in addition to cardiology consultation and general surgery consultation due to distended abdomen. At this current time patient feels a little better but is drowsy but she is oriented x3 and she remembers who I am. Subjective/Events-last exam Elevated bp of 176/91, other vitals are normal and stable. Slept ok last night. Eating and drinking well. Voiding well. Still complaining of diarrhea. Ambulating well with walker. No complaints. Review of Systems General: No Chills, No Night Sweats, No Fatigue, No Malaise, No Appetite, No Other HEENT: No Head Aches, No Visual Changes, No Eye Pain, No Ear Pain, No Dysphasia, No Sinus Congestion, No Post Nasal Drip, No Sore Throat, No Other Pulmonary: No Dyspnea, No Cough, No Pleuritic Chest Pain, No Other Cardiovascular: No: Chest Pain, Palpitations, Orthopnea, Paroxysmal Noc. Dyspnea, Edema, Lt Headedness, Other Gastrointestinal: No: Nausea, Vomiting, Abdominal Pain, Diarrhea, Constipation, Melena, Hematochezia, Other Genitourinary: No Dysuria, No Frequency, No Incontinence, No Hematuria, No Retention, No Other Musculoskeletal: No: other, neck pain, shoulder pain, arm pain, back pain, hand pain, leg pain, foot pain Neurological: No: Weakness, Numbness, Incoordination, Change in speech, Confusion, Seizures, Other Focused Exam Lactate Level 07/07/19 07:00: Lactic Acid Level 1.48 Objective Exam Vital Signs Vital Signs Date Time Temp Pulse Resp B/P (MAP) Pulse Ox O2 Delivery O2 Flow Rate FiO2 07/09/19 09:15 36.2 97 20 176/91 (119) 99 Room Air 07/09/19 08:00 2.00 Capillary Refill : Less Than 3 Seconds General Appearance: No Apparent Distress, WD/WN HEENT: PERRL/EOMI, Normal ENT Inspection, Moist Mucous Membranes Respiratory: Chest Non Tender, Lungs Clear, Normal Breath Sounds, No Accessory Muscle Use, No Respiratory Distress Cardiovascular: Regular Rate, Rhythm, No Edema, No Gallop, No JVD, No Murmur, Normal Peripheral Pulses Neurologic/Psychiatric: Alert, Oriented x3, No Motor/Sensory Deficits, 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 Assessment/Plan Assessment and Plan Assess & Plan/Chief Complaint Assessment: 1. Dehydration 2. Elevated Troponins 3. Substance abuse Plan: 1. Tolerate solid food and fluids 2. NSAIDs for chest pain. 3. Program to help cessation Clinical Quality Measures AMI/AHF: ASA po Prior to arrival: No DVT/VTE Risk/Contraindication: Risk Factor Score Per Nursin RFS Level Per Nursing on Admit: 3=High DEEPIKA PATEL DO 07/09/19 2221: Subjective Subjective/Events-last exam Pt had a seizure during the stress test Stress test is pending PT and OT will be ordered Inpatient rehab may be an option due to the readmission that she had just recently Creatinine is 1.05 IV fluids were heplocked BP much better controlled Still having some diarrhea but a little better Pt in agreement with strengthening before going home Supervisory-Addendum Brief Verification & Attestation Participated in pt care: history, MDM, physical Personally performed: exam, history, MDM, supervision of care Care discussed with: Medical Student Procedures: n/a Results interpretation: Verified all documentation Verification and Attestation of Medical Student E/M Service A medical student performed and documented this service in my presence. I reviewed and verified all information documented by the medical student and made modifications to such information, when appropriate. I personally performed the physical exam and medical decision making. Deepika Patel Jul 09, 2019,22:21 [facility] Jul 09, 2019 12:41 DEEPIKA PATEL DO Jul 09, 2019 22:21
--- NOTE | 2019-07-09 13:06 | Cardiology Progress Note ---
Cardiology SOAP Progress Note Subjective: Significantly improved chest pain. Objective: I&O/Vital Signs 07/09/19 07/09/19 07/09/19 07/09/19 04:15 07:00 07:56 08:00 Temp 36.8 Pulse 86 83 86 Resp 20 B/P (MAP) 184/110 (134) 178/102 (127) Pulse Ox 98 99 O2 Delivery Room Air Nasal Cannula O2 Flow Rate 2.00 07/09/19 07/09/19 07/09/19 08:21 09:15 12:38 Temp 36.2 Pulse 108 97 86 Resp 20 B/P (MAP) 175/98 (123) 176/91 (119) Pulse Ox 99 99 O2 Delivery Room Air 07/08/19 23:59 Intake Total 3301 ml Balance 3301 ml Weight (Pounds): 155 Weight (Ounces): 8.0 Weight (Calculated Kilograms): [id number] Constitutional: appears stated age, AAO x 3; No apparent distress; well-d eveloped, well-nourished Respiratory: No accessory muscle use, No respiratory distress, No chest tender, No chest expansion is symmetric; chest is bilaterally symmetric; No lungs clear to percussion; lungs clear to auscultation; No crackles, No rhonchi, No rales, No stridor, No wheezing, No pleural rub, No other Cardiovascular: regular rate-rhythm; No irregularly irregular, No extra beats, No parasternal heave is noted, No JVD, No edema, No bradycardia, No tachycardia, No point of maximal impulse, No cardiac thrills are palpable; S1 and S2; No gallop/S3, No gallop/S4, No diastolic murmur, No systolic murmur, No friction rub, No click, No other Gastrointestional: soft, round, audible bowel sounds; No spleenomegaly Extremities: normal range of motion, non-tender, normal inspection; No clubbing, No cyanosis; no lower extremity edema bilateral; No significant edema Neurologic/Psychiatric: no motor/sensory deficits, alert, normal mood/affect, oriented x 3, power is 5/5 both on sides Skin: normal color; No rash, No ulcerations Results/Procedures: Labs Laboratory Tests 07/09/19 04:45: White Blood Count 3.1L, Red Blood Count 3.46L, Hemoglobin 10.1L, Hematocrit 32L, Mean Corpuscular Volume 93, Mean Corpuscular Hemoglobin 29, Mean Corpuscular Hemoglobin Concent 32, Red Cell Distribution Width 15.1H, Platelet Count 338, Mean Platelet Volume 9.7, Neutrophils (%) (Auto) 37L, Lymphocytes (%) (Auto) 46H , Monocytes (%) (Auto) 7, Eosinophils (%) (Auto) 9, Basophils (%) (Auto) 0, Becki trophils # (Auto) 1.2L, Lymphocytes # (Auto) 1.4, Monocytes # (Auto) 0.2, Eosinophils # (Auto) 0.3, Basophils # (Auto) 0.0, Sodium Level 141, Potassium Level 5.2H, Chloride Level 118H, Carbon Dioxide Level 16L, Anion Gap 7, Blood Urea Nitrogen 20H, Creatinine 1.05, Estimat Glomerular Filtration Rate 54, BUN/Creatinine Ratio 19, Glucose Level 77, Calcium Level 8.0L, Corrected Calcium 8.5, Total Bilirubin 0.2, Aspartate Amino Transf (AST/SGOT) 11, Alanine Aminotransferase (ALT/SGPT) 17, Alkaline Phosphatase 59, Total Protein 6.1L, Albumin 3.4 Microbiology 07/07/19 Blood Culture - Preliminary, Resulted No growth 07/07/19 Urine Culture - Final, Complete 3 or more isolates A/P: Assessment/Dx: Chest pain, positive troponin, Diarrhea, Acute kidney injury, History of LV systolic dysfunction, Mild CAD, Hypertension Plan: Chest pain, positive troponin, serial troponin did not reveal any significant rise, in fact troponin is decreasing. Could be secondary to acute respiratory failure daily as ago. Also the chest pain is reproducible. She had coronary angiography in February 2018 which showed very mild CAD. Nuclear stress test this morning. Diarrhea, IV fluids. Acute kidney injury, IV fluids. History of LV systolic dysfunction, continue outpatient medical therapy of cardiomyopathy. Echocardiogram done 07/08/2019 showed normal LV function. Mild CAD, based on coronary angiography in 02/2018. Hypertension, well controlled. Thank you for your consultation. Please call me if you have any questions. Brinda Jenkins MD, FACP, FACC, FSCAI, FHRS, CCDS Interventional Cardiology Cardiac Electrophysiology Vascular Medicine and Endovascular Interventions Focused Exam Lactate Level 07/07/19 07:00: Lactic Acid Level 1.48 Clinical Quality Measures AMI/AHF: ASA po Prior to arrival: Paolo Rodriguez MD Jul 09, 2019 13:05
--- NOTE | 2019-07-09 13:35 | Physical Therapy Evaluation ---
PT Evaluation-General Medical Diagnosis Admission Date Jul 07, 2019 at 09:23 Medical Diagnosis: chest pain/dehydration Onset Date: Jul 07, 2019 Therapy Diagnosis Therapy Diagnosis: debility Height/Weight Height (Feet): 5 Height (Inches): 3.00 Weight (Pounds): 155 Weight (Ounces): 8.0 Precautions Precautions/Isolations: Seizure, Fall Prevention, Standard Precautions Referral Physician: Jorge Reason for Referral: Evaluation/Treatment Medical History Pertinent Medical History: Arthritis, COPD, CVA, GERD, HTN, Renal Insufficiency, Smoking Additional Medical History seizure disorder/polysubstance abuse Current History ER secondary to chest pain/diarrhea Reviewed History: Yes Social History Home: Apartment Entry Into Home: Level Entry Prior/Core FIM Prior Level of Function Therapy Code Descriptions/Definitions Functional [place] Measure: 0=Not Assessed/NA 4=Minimal Assistance 1=Total Assistance 5=Supervision or Setup 2=Maximal Assistance 6=Modified [place] 3=Moderate Assistance 7=Complete [place] Therapy Quality Codes: 6 Independent with activity with or without an assistive device 5 Patient requires set up or clean up by helper. Patient completes activity by themselves 4 Supervision or touching assist (CGA). [place] provide cues , steadying assist 3 The helper provides less than half the effort to complete the activity 2 The helper provides more than half the effort to complete the activity 1 Dependent. The helper does all the effort to complete an activity 7 Patient refused to complete or attempt activity 9 The patient did not perform the activity before the current illness or injury 88 Not attempted due to Medical conditions or safety concerns Functional Abilities and Goals: Independent: Patient completed the activities by him/herself, with or without an assistive device, with no assistance from a helper. Needed Some Help: Patient needed partial assistance from another person to complete activities. Dependent: A helper completed the activities for the patient. Unknown: Not Applicable: Bed Mobility: 6 Transfers (B,C,W/C) (FIM): 6 Gait: 6 Indoor Mobility (Ambulation): Independent Prior Devices Use: Walker (4WW) PT Evaluation-Current Subjective Patient is very agreeable to participate with PT. Pain Numeric Pain Scale: 0-No Pain Location: No Pain Reported Objective Patient Orientation: Confused Problem Solving: Poor ROM/Strength ROM Lower Extremities bilateral LE WFL Strength Lower Extremities 4/5 grossly bilateral LE Integumentary/Posture Integumentary refer to nursing notes Bowel Incontinence: No Bladder Incontinence: No Posture trunk flexed posture Neuromuscular (Tone, Coordination, Reflexes) grossly intact Sensory Vision: Functional Hearing: Functional Sensation Right Lower Extremit: Impaired Sensation Left Lower Extremity: Impaired Transfers Therapy Code Descriptions/Definitions Functional [place] Measure: 0=Not Assessed/NA 4=Minimal Assistance 1=Total Assistance 5=Supervision or Setup 2=Maximal Assistance 6=Modified [place] 3=Moderate Assistance 7=Complete [place] Transfers (B, C, W/C) (FIM): 7 Scootin Rollin Supine to/from Sit: 7 Sit to/from Stand: 7 Gait Mode of Locomotion: Walk Anticipated Mode of Locomotion: Walk Gait (FIM): 6 Distance (FIM): 3=150 ft Distance: >1000' Gait Level of Assist: 6 Gait Assistive Device: Walker 4 Wheeled Comments/Gait Description patient leans on 4WW (prior use) and demonstrates safe and functional gait sequence Balance Sitting Static: Normal Sitting Dynamic: Normal Standing Static: Normal Standing Dynamic: Normal Assessment/Needs 58 y.o. female, is currently at independent to modified independent [facility] with all gross motor skills safely and does not require skilled therapy intervention. Patient is safe to ambulate PRN in hallway with nursing supervision. Rehab Potential: Fair PT Plan Treatment/Plan Treatment Plan: Discontinue PT, goals met Treatment Plan: Other Treatment Duration: Jul 09, 2019 Frequency: 1 time per week Estimated Hrs Per Day: .25 hour per day Patient and/or Family Agrees t: Yes Time/GCodes Time In: 1230 Time Out: 1244 Total Billed Treatment Time: 14 Total Billed Treatment 1 visit EVLowC 14 min ANURAG GENTILE PT Jul 09, 2019 13:35
--- NOTE | 2019-07-09 13:37 | Occupational Therapy Eval ---
OT Evaluation-General/PLF Medical Diagnosis Admission Date Jul 07, 2019 at 09:23 Medical Diagnosis: chest pain/dehydration Onset Date: Jul 07, 2019 Therapy Diagnosis Therapy Diagnosis: debility Height/Weight Height (Feet): 5 Height (Inches): 3.00 Weight (Pounds): 155 Weight (Ounces): 8.0 Precautions Precautions/Isolations: Seizure, Fall Prevention, Standard Precautions Safety Interventions: Bed Exit Alarm Medical History Pertinent Medical History: Arthritis, COPD, CVA, GERD, HTN, Smoking Additional Medical History valvular heart disease, seizure disorder, renal failure, chronic back pain, cervical cancer, anxiety, bipolar, depression, anemia, Current History Pt admitted with c/o chest pain, diarrhea, dehydration, acute renal insufficiency. Pt had recent hospitalization for acute respiratory failure with intubation Social History Home: Apartment Current Living Status: Alone ADL-Prior Level of Function Therapy Code Descriptions/Definitions Functional [place] Measure: 0=Not Assessed/NA 4=Minimal Assistance 1=Total Assistance 5=Supervision or Setup 2=Maximal Assistance 6=Modified [place] 3=Moderate Assistance 7=Complete [place] Therapy Quality Codes: 6 Independent with activity with or without an assistive device 5 Patient requires set up or clean up by helper. Patient completes activity by themselves 4 Supervision or touching assist (CGA). [place] provide cues , steadying assist 3 The helper provides less than half the effort to complete the activity 2 The helper provides more than half the effort to complete the activity 1 Dependent. The helper does all the effort to complete an activity 7 Patient refused to complete or attempt activity 9 The patient did not perform the activity before the current illness or injury 88 Not attempted due to Medical conditions or safety concerns Functional Abilities and Goals: Independent: Patient completed the activities by him/herself, with or without an assistive device, with no assistance from a helper. Needed Some Help: Patient needed partial assistance from another person to complete activities. Dependent: A helper completed the activities for the patient. Unknown: Not Applicable: ADL PLOF Comments Pt states she has assist as needed, but is mostly able to dress and bathe herself. Uses 4WW for mobility. Pt states she has a SKIL worker 3.5 hours/day, 7 days/wk. They mostly assist with housework. Also has assist with setting up meds. Drive Self: No OT Current Status Subjective Pt in bed, agrees to therapy. Has no c/o pain Mental Status/Objective Patient Orientation: Person, Place Current Glasses/Contacts: Yes Hearing Aids: No Hand Dominance: Right Upper Extremity ROM grossly functional Upper Extremity Coordination intact ADL-Treatment ADL-Current Pt supine to sit without assist. Pt completed grooming tasks while seated EOB. Pt brushed hair and washed face with set up. Pt demonstrated ability to doff/don socks while seated EOB. Pt sit to stand with modified independence. Demonstrates ability to transfer with 4WW with supervision for safety only. Pt returned to bed with needs met after session. Therapy Code Descriptions/Definitions Functional [place] Measure: 0=Not Assessed/NA 4=Minimal Assistance 1=Total Assistance 5=Supervision or Setup 2=Maximal Assistance 6=Modified [place] 3=Moderate Assistance 7=Complete [place] Therapy Quality Codes: 6 Independent with activity with or without an assistive device 5 Patient requires set up or clean up by helper. Patient completes activity by themselves 4 Supervision or touching assist (CGA). [place] provide cues , steadying assist 3 The helper provides less than half the effort to complete the activity 2 The helper provides more than half the effort to complete the activity 1 Dependent. The helper does all the effort to complete an activity 7 Patient refused to complete or attempt activity 9 The patient did not perform the activity before the current illness or injury 88 Not attempted due to Medical conditions or safety concerns Grooming (FIM): 5 Lower Body Dressing (FIM): 5 (socks only) Education OT Patient Education: Rehab process Teaching Recipient: Patient Teaching Methods: Discussion Response to Teaching: Verbalize Understanding OT Short Term Goals Short Term Goals 1=Demonstrate adherence to instructed precautions during ADL tasks. 2=Patient will verbalize/demonstrate understanding of assistive devices/modifications for ADL. 3=Patient will improve strength/tolerance for activity to enable patient to perform ADL's. OT Medical Social Worker Goals Nursing Home Goals Time Frame: Jul 16, 2019 Grooming(FIM): 6 Bathing(FIM): 5 Upper Body Dressing(FIM): 6 Lower Body Dressing(FIM): 6 Toileting(FIM): 6 Toilet/Commode Transfer(FIM): 6 Additional Goals: 2-Verbalize Understanding, 3-ImproveStrength/Bernie 1=Demonstrate adherence to instructed precautions during ADL tasks. 2=Patient will verbalize/demonstrate understanding of assistive devices/modifications for ADL. 3=Patient will improve strength/tolerance for activity to enable patient to perform ADL's. OT Education/Plan Problem List/Assessment Assessment: Decreased UE Strength, Dependent Transfers, Impaired Self-Care Skills Pt to benefit from skilled OT intervention for ADL training, transfers, and safety education to increase level of independence and allow safe discharge home. Discharge Recommendations Plan/Recommendations: Continue POC Treatment Plan/Plan of Care Treatment,Training & Education: Yes Patient would benefit from OT for education, treatment and training to promote independence in ADL's, mobility, safety and/or upper extremity function for ADL's. Plan of Care: ADL Retraining, Functional Mobility, UE Funct Exercise/Act Treatment Duration: Jul 16, 2019 Frequency: 5 times per week Estimated Hrs Per Day: .25 hour per day Rehab Potential: Good Time/GCodes Start Time: 13:15 Stop Time: 13:30 Total Time Billed (hr/min): 15 Billed Treatment Time 1 visit, XUAN(15minutes) TAY ORDAZ OT Jul 09, 2019 13:37
[2019-07-09] MEDS: ENOXAPARIN 40 MG/0.4 ML (LOVENOX) SYR SQ SCH (16:06)
[2019-07-09] MEDS: FAMOTIDINE 20 MG (PEPCID) TABLET PO SCH (19:38)
--- NOTE | 2019-07-09 21:54 | Progress Note - Surgery ---
Subjective Date Seen by a Provider: Jul 09, 2019 Time Seen by a Provider: 06:32 Subjective/Events-last exam Patient states she's feeling better. Not really having any abdominal pain at this time, only on rare occasion and more in the epigastric/ruq area when occurs. Tolerating liquids. Diarrhea improved and more soft stools she states. Denies n/v fever sweats chills shortness of breath or chest pain. No other complaints at this time.Wanting real food. Focused Exam Lactate Level 07/07/19 07:00: Lactic Acid Level 1.48 Objective Exam Vital Signs Date Time Temp Pulse Resp B/P (MAP) Pulse Ox O2 Delivery O2 Flow Rate FiO2 07/09/19 20:06 36.6 93 22 196/102 (133) 98 Room Air 07/09/19 19:00 99 07/09/19 16:00 37.4 97 18 179/100 (126) 98 Room Air 07/09/19 12:38 86 07/09/19 12:00 36.6 89 20 177/82 (113) 99 Room Air 07/09/19 09:15 36.2 97 20 176/91 (119) 99 Room Air 07/09/19 08:21 108 175/98 (123) 99 07/09/19 08:00 Nasal Cannula 2.00 07/09/19 07:56 86 178/102 (127) 99 07/09/19 07:00 83 07/09/19 04:15 36.8 86 20 184/110 (134) 98 Room Air 07/09/19 00:42 89 07/09/19 00:03 36.6 83 21 134/82 (99) 97 Room Air I & O 07/09/19 07:00 Intake Total 4061 ml Balance 4061 ml Capillary Refill : Less Than 3 Seconds General Appearance: No Apparent Distress, WD/WN HEENT: PERRL/EOMI, Normal ENT Inspection, Moist Mucous Membranes Neck: Normal Inspection, Non Tender, Supple Respiratory: Chest Non Tender, No Accessory Muscle Use, No Respiratory Distress Cardiovascular: Regular Rate, Rhythm Gastrointestinal: non tender, soft, no organomegaly; No tenderness Extremity: Normal Inspection, Non Tender, No Calf Tenderness, No Pedal Edema Neurologic/Psychiatric: Alert, Oriented x3, No Motor/Sensory Deficits, Normal Mood/Affect, 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 Norm as Tested Skin: Normal Color, Warm/Dry Lymphatic: No Adenopathy Results Lab Laboratory Tests 07/09/19 04:45: White Blood Count 3.1L, Red Blood Count 3.46L, Hemoglobin 10.1L, Hematocrit 32L, Mean Corpuscular Volume 93, Mean Corpuscular Hemoglobin 29, Mean Corpuscular Hemoglobin Concent 32, Red Cell Distribution Width 15.1H, Platelet Count 338, Mean Platelet Volume 9.7, Neutrophils (%) (Auto) 37L, Lymphocytes (%) (Auto) 46H , Monocytes (%) (Auto) 7, Eosinophils (%) (Auto) 9, Basophils (%) (Auto) 0, Neutrophils # (Auto) 1.2L, Lymphocytes # (Auto) 1.4, Monocytes # (Auto) 0.2, Eosinophils # (Auto) 0.3, Basophils # (Auto) 0.0, Sodium Level 141, Potassium Level 5.2H, Chloride Level 118H, Carbon Dioxide Level 16L, Anion Gap 7, Blood Urea Nitrogen 20H, Creatinine 1.05, Estimat Glomerular Filtration Rate 54, BUN/Creatinine Ratio 19, Glucose Level 77, Calcium Level 8.0L, Corrected Calcium 8.5, Total Bilirubin 0.2, Aspartate Amino Transf (AST/SGOT) 11, Alanine Aminotransferase (ALT/SGPT) 17, Alkaline Phosphatase 59, Total Protein 6.1L, Albumin 3.4 Microbiology 07/07/19 Blood Culture - Preliminary, Resulted No growth 07/07/19 Urine Culture - Final, Complete 3 or more isolates Assessment/Plan Assessment/Plan Assessment/Plan diffuse abdominal pain diarrhea substance abuse abdominal pain resolved, diarrhea improved advance diet cessation of illicit drugs recommended if diarrhea culture Clinical Quality Measures AMI/AHF: ASA po Prior to arrival: No DVT/VTE Risk/Contraindication: Risk Factor Score Per Nursin RFS Level Per Nursing on Admit: 3=High BECKI ELY DO Jul 09, 2019 21:54
[2019-07-10] MEDS: hydrOXYzine (VISTARIL/ATARAX) 25 MG capsule/tablet PO PRN (01:26)
--- NOTE | 2019-07-10 01:28 | NUR ---
pt sitting upright in bed rocking back & forth watching television-pt requesting "something to help me sleep & something for my nerves" prn melatonin & prn Vistaril given.
[2019-07-10 03:06] VITALS: BP 168/86
[2019-07-10 07:02] LABS: BASOPHILS % (AUTO) 1 % (0-10); EOSINOPHILS # (AUTO) 0.3 10^3/uL (0.0-0.3); EOSINOPHILS % (AUTO) 7 % (0-10); HEMATOCRIT 31 % (35-52); LYMPHOCYTES # (AUTO) 1.6 X 10^3 (1.0-4.0); LYMPHOCYTES % (AUTO) 41 % (12-44); MEAN CORPUSCULAR HEMOGLOBIN 29 PG (25-34); MEAN CORPUSCULAR HGB CONC 32 G/DL (32-36); MEAN CORPUSCULAR VOLUME 90 FL (80-99); MEAN PLATELET VOLUME 9.7 FL (7.4-10.4); MONOCYTES # (AUTO) 0.3 X 10^3 (0.0-1.0); MONOCYTES % (AUTO) 8 % (0-12); NEUTROPHILS # (AUTO) 1.8 X 10^3 (1.8-7.8); NEUTROPHILS % (AUTO) 44 % (42-75); PLATELET COUNT 334 10^3/uL (130-400); RED CELL DISTRIBUTION WIDTH 14.9 % (10.0-14.5)
[2019-07-10 07:21] LABS: ALBUMIN 3.5 GM/DL (3.2-4.5); BILIRUBIN,TOTAL 0.2 MG/DL (0.1-1.0); CALCIUM 8.7 MG/DL (8.5-10.1); CREATININE SERUM 1.23 MG/DL (0.60-1.30); POTASSIUM 5.5 MMOL/L (3.6-5.0); TOTAL PROTEIN 6.7 GM/DL (6.4-8.2)
[2019-07-10 08:11] VITALS: BP 197/107
[2019-07-10] MEDS: amLODIPine 10 MG (NORVASC) TAB PO SCH (08:19)
[2019-07-10] MEDS: OXcarbazepine (TRILEPTAL) 300 MG TAB PO SCH (08:19)
[2019-07-10] MEDS: PHENobarbital 97.2 MG (1-1/2 GRAIN) TABLET PO SCH (08:19)
[2019-07-10] MEDS: cloNIDine 0.2 MG (CATAPRES) TAB PO SCH (08:19)
[2019-07-10] MEDS: ASPIRIN 81 MG CHEW (CHILDREN'S ASA) PO SCH (08:20)
[2019-07-10] MEDS: hydrALAZINE (APRESOLINE) 25 MG TAB PO SCH ×2 (08:20→12:24)
[2019-07-10] MEDS: meTOprolol SUCCINATE 100 MG (TOPROL XL) TAB PO SCH (08:20)
[2019-07-10] MEDS: ACETAMINOPHEN 500 MG TAB (TYLENOL) PO PRN (08:42)
--- NOTE | 2019-07-10 09:36 | Progress Note - Surgery ---
TRACE HOYOS [facility] 07/10/19 0936: Subjective Date Seen by a Provider: Jul 10, 2019 Time Seen by a Provider: 08:32 Subjective/Events-last exam Patient says she is feeling good. Abdominal pain has improved. Patient had three episodes of watery, non-bloody diarrhea yesterday. 2 after advancement of diet. Denies n/v, SOB, pain with ambulation. RLQ is tender to palpation. Patient had trouble sleeping last night. Yesterday patient experienced a 1 minute seizure that resolved on its own, followed by a headache. BP spiked yesterday to 184/110 and was given medication to control. Last vital signs showed BP at 168/86. Patient was taken for stress test yesterday, results pending. Review of Systems General: No Chills HEENT: Head Aches (After seizure yesterday); No Visual Changes Pulmonary: Dyspnea Cardiovascular: No: Chest Pain Gastrointestinal: Diarrhea; No: Nausea, Vomiting, Constipation, Melena, Hematochezia Genitourinary: No Dysuria Musculoskeletal: No: other, neck pain, shoulder pain, arm pain, back pain, hand pain, leg pain, foot pain Neurological: Seizures; No: Change in speech Objective Exam Vital Signs Date Time Temp Pulse Resp B/P (MAP) Pulse Ox O2 Delivery O2 Flow Rate FiO2 07/10/19 08:11 36.6 97 24 197/107 (137) 96 Room Air 07/10/19 07:00 89 07/10/19 03:06 36.8 94 20 168/86 (113) 96 Room Air 07/10/19 01:00 101 07/09/19 23:06 36.5 92 20 166/84 (111) 95 Room Air 07/09/19 20:06 36.6 93 22 196/102 (133) 98 Room Air 07/09/19 19:30 Room Air 07/09/19 19:00 99 07/09/19 16:00 37.4 97 18 179/100 (126) 98 Room Air 07/09/19 12:38 86 07/09/19 12:00 36.6 89 20 177/82 (113) 99 Room Air I & O 07/10/19 07:00 Intake Total 2000 ml Balance 2000 ml Capillary Refill : Less Than 3 Seconds General Appearance: No Apparent Distress, WD/WN HEENT: PERRL/EOMI, Normal ENT Inspection, Pharynx Normal, Moist Mucous Membranes Neck: Normal Inspection, Non Tender, Supple Respiratory: Chest Non Tender, No Accessory Muscle Use, No Respiratory Distress Cardiovascular: Regular Rate, Rhythm Gastrointestinal: non tender (RLQ), soft, no organomegaly, tenderness Extremity: Normal Inspection, Non Tender, No Calf Tenderness, No Pedal Edema Neurologic/Psychiatric: Alert, Oriented x3, No Motor/Sensory Deficits, Normal 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, 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 Skin: Normal Color, Warm/Dry Lymphatic: No Adenopathy Results Lab Laboratory Tests 07/10/19 06:50: White Blood Count 4.0L, Red Blood Count 3.42L, Hemoglobin 10.0L, Hematocrit 31L, Mean Corpuscular Volume 90, Mean Corpuscular Hemoglobin 29, Mean Corpuscular Hemoglobin Concent 32, Red Cell Distribution Width 14.9H, Platelet Count 334, Mean Platelet Volume 9.7, Neutrophils (%) (Auto) 44, Lymphocytes (%) (Auto) 41, Monocytes (%) (Auto) 8, Eosinophils (%) (Auto) 7, Basophils (%) (Auto) 1, Neutrophils # (Auto) 1.8, Lymphocytes # (Auto) 1.6, Monocytes # (Auto) 0.3, Eosinophils # (Auto) 0.3, Basophils # (Auto) 0.0, Sodium Level 139, Potassium Level 5.5H, Chloride Level 112H, Carbon Dioxide Level 22, Anion Gap 5, Blood Urea Nitrogen 29H, Creatinine 1.23, Estimat Glomerular Filtration Rate 45, BUN/Creatinine Ratio 24, Glucose Level 88, Calcium Level 8.7, Corrected Calcium 9.1, Total Bilirubin 0.2, Aspartate Amino Transf (AST/SGOT) 13, Alanine Aminotransferase (ALT/SGPT) 15, Alkaline Phosphatase 75, Total Protein 6.7, Albumin 3.5 Microbiology 07/07/19 Blood Culture - Preliminary, Resulted No growth 07/07/19 Urine Culture - Final, Complete 3 or more isolates Assessment/Plan Assessment/Plan Assessment/Plan RLQ pain diarrhea substance abuse cessation of illicit drugs recommended Stool culture due to returning episodes of watery diarrhea Clinical Quality Measures AMI/AHF: ASA po Prior to arrival: No DVT/VTE Risk/Contraindication: Risk Factor Score Per Nursin RFS Level Per Nursing on Admit: 3=High SAROJ ARIN DO 07/10/19 1302: Subjective Time Seen by a Provider: 10:54 Subjective/Events-last exam Pt tolerating diet and had normal BM, wants to go home. Assessment/Plan Assessment/Plan Assessment/Plan Will d/c home and if diarrhea continues can get stool culture as an outpt. Follow up in clinic with Dr. Wilder next week. Supervisory-Addendum Brief Verification & Attestation Participated in pt care: history, MDM, physical Personally performed: exam, history Care discussed with: Medical Student Procedures: n/a Verification and Attestation of Medical Student E/M Service A medical student performed and documented this service in my presence. I reviewed and verified all information documented by the medical student and made modifications to such information, when appropriate. I personally performed the physical exam and medical decision making. Saroj Rain, Jul 10, 2019,13:02 TRACE HOYOS [facility] Jul 10, 2019 09:36 SAROJ RAIN DO Jul 10, 2019 13:02
[2019-07-10 11:54] VITALS: BP 178/93
--- NOTE | 2019-07-10 13:00 | Discharge Inst-Surgical ---
Discharge Inst-Surgical Depart Medication/Instructions New, Converted or Re-Newed RX: Other (none needed) Patient Instructions Follow up Appt: Make appointment for 1 week. [phone] Wilder Instructions: Use incentive spirometer at home as directed. No Smoking Symptoms to Report: Appetite Changes, Extremity Discoloration, Numbness/Tingling, Swelling In creased, Bleeding Excessive, Eyesight Changes, Pain Increased, Urine Color Change, Constipation(Persistent), Fever over 101 degree F, Pain/Pressure in chest, Urinating Difficulty, Cough Up/Vomit Blood, Heart Beat Irreg/Pounding, Pain/Pressure in jaw, Cramps in feet or legs, Lightheadedness, Pain/Pressure in shoulder, Diarrhea(Persistent), Memory Changes Suddenly, Questions/Concerns, Weight gain consecutive days, Dizziness/Fainting, Nausea/Vomiting, Shortness of Breath, Weight gain over 2 pounds If questions or concerns contact your physician Or seek help at emergency department. Activity Activity as Tolerated: Yes Driving Instructions: You May Drive Diet Discharge Diet: No Restrictions If Any Problems/Questions/Issu: Contact Your Physician, Go to Emergency Room Skin/Wound Care Infection Signs and Symptoms: Temperature Above 101 F Bathing Instructions: DHEERAJ Qiu DO Jul 10, 2019 13:00
[2019-07-10] MEDS ORDERED: ASPI-999 PO (13:10)
--- NOTE | 2019-07-10 13:10 | Discharge Summary ---
Discharge Summary Hospital Course Was the Problem List Reviewed?: Yes Problems/Dx: (1) Distended abdomen Status: Acute (2) Hypertensive urgency Status: Acute (3) Dehydration Status: Acute (4) Acute on chronic renal insufficiency Status: Acute (5) Watery diarrhea Status: Acute (6) Seizure Status: Acute (7) Chest pain Status: Acute Hospital Course Date of Admission: Jul 07, 2019 at 09:23 Admission Diagnosis : Family Physician/Provider: [place] Date of Discharge: 07/10/19 Discharge Diagnosis: Acute renal failure, dehydration, severe diarrhea, ileus, elevated troponin requiring stress test Hospital Course: Patient had a complex hospital course for 5 days when she was admitted after just discharged 2 days prior for severe diarrhea with profound dehydration and acute renal failure along with elevated troponin. She was aggressively treated with IV fluids and cardiology consultation along with general surgery for abdominal distention and severe diarrhea with ileus. Home blood pressure medications were restarted once intestines return back to seminormal because of her malignant hypertension history. Overall she was able to get up and around physical therapy walking the halls be back to her baseline and was okay for discharge back to her home where her skill worker was able to care for her and to continue her recovery. Labs and Pending Lab Test: Laboratory Tests 07/10/19 06:50: White Blood Count 4.0L, Red Blood Count 3.42L, Hemoglobin 10.0L, Hematocrit 31L, Mean Corpuscular Volume 90, Mean Corpuscular Hemoglobin 29, Mean Corpuscular Hemoglobin Concent 32, Red Cell Distribution Width 14.9H, Platelet Count 334, Mean Platelet Volume 9.7, Neutrophils (%) (Auto) 44, Lymphocytes (%) (Auto) 41, Monocytes (%) (Auto) 8, Eosinophils (%) (Auto) 7, Basophils (%) (Auto) 1, Neutrophils # (Auto) 1.8, Lymphocytes # (Auto) 1.6, Monocytes # (Auto) 0.3, Eosinophils # (Auto) 0.3, Basophils # (Auto) 0.0, Sodium Level 139, Potassium Level 5.5H, Chloride Level 112H, Carbon Dioxide Level 22, Anion Gap 5, Blood Urea Nitrogen 29H, Creatinine 1.23, Estimat Glomerular Filtration Rate 45, BUN/Creatinine Ratio 24, Glucose Level 88, Calcium Level 8.7, Corrected Calcium 9.1, Total Bilirubin 0.2, Aspartate Amino Transf (AST/SGOT) 13, Alanine Aminotransferase (ALT/SGPT) 15, Alkaline Phosphatase 75, Total Protein 6.7, Albumin 3.5 Microbiology 07/07/19 Blood Culture - Preliminary, Resulted No growth 07/07/19 Urine Culture - Final, Complete 3 or more isolates Home Meds Active Reported Metoprolol Succinate 100 Mg Tab.er.24h 100 Mg PO DAILY Amlodipine Besylate 10 Mg Tablet 10 Mg PO DAILY Cyclobenzaprine HCl 10 Mg Tablet 10 Mg PO BID PRN Hydralazine HCl 50 Mg Tablet 50 Mg PO TID Acid Blister Rust Eradicator (RANITIDINE) (Ranitidine HCl) 150 Mg Tablet 150 Mg PO HS Prazosin HCl 1 Mg Capsule 1 Mg PO HS Hydroxyzine HCl 25 Mg Tablet 25 Mg PO TID PRN Aldactone (Spironolactone) 25 Mg Tablet 25 Mg PO DAILY Clonidine HCl 0.2 Mg Tablet 0.2 Mg PO BID Losartan Potassium 100 Mg Tablet 100 Mg PO DAILY Tylenol Extra Strength (Acetaminophen) 500 Mg Tablet 1,000 Mg PO Q6H PRN Phenobarbital 97.2 Mg Tablet 97.2 Mg PO DAILY Oxcarbazepine 600 Mg Tablet 600 Mg PO BID Assessment/Pt Instructions [facility] primary care provider this week Discharge Planning: <30 minutes discharge planning Discharge Instructions Discharge Diet: No Restrictions Activity as Tolerated: Yes Discharge Physical Examination Vital Signs Vital Signs Date Time Temp Pulse Resp B/P (MAP) Pulse Ox O2 Delivery O2 Flow Rate FiO2 07/10/19 11:54 37.3 77 22 178/93 (121) 100 Room Air 07/09/19 08:00 2.00 General Appearance: No Apparent Distress, WD/WN Respiratory: Chest Non Tender, Lungs Clear, Normal Breath Sounds, No Accessory Muscle Use, No Respiratory Distress Cardiovascular: Regular Rate, Rhythm, No Edema, No Gallop, No JVD, No Murmur, Normal Peripheral Pulses Neurologic/Psychiatric: Alert, Oriented x3, No Motor/Sensory Deficits, Normal Mood/Affect Allergies: Coded Allergies: nitrous oxide (Verified Allergy, Unknown, 06/08/07) Discharge Summary Date of Admission Jul 07, 2019 at 09:23 Date of Discharge Discharge Date: Jul 10, 2019 Admission Diagnosis Assessment: Dehydration Acute renal failure Severe diarrhea Elevated creatinine Seizure disorder HTN Plan: Consult cardiology Consult general surgery IV fluid Pain control Home meds Discharge Diagnosis Assessment: Ileus Elevated troponin ARF Sz d/o (1) Distended abdomen Status: Acute (2) Hypertensive urgency Status: Acute (3) Dehydration Status: Acute (4) Acute on chronic renal insufficiency Status: Acute (5) Watery diarrhea Status: Acute (6) Seizure Status: Acute (7) Chest pain Status: Acute Clinical Quality Measures AMI/AHF: ASA po Prior to arrival: No DVT/VTE Risk/Contraindication: Risk Factor Score Per Nursin RFS Level Per Nursing on Admit: 3=High RAJAN VALDOVINOS DO Jul 10, 2019 13:10
--- NOTE | 2019-07-10 13:40 | Cardiology Progress Note ---
Cardiology SOAP Progress Note Subjective: No cardiac complaints. Objective: I&O/Vital Signs 07/10/19 07/10/19 07/10/19 07/10/19 03:06 07:00 08:00 08:11 Temp 36.8 36.6 Pulse 94 89 97 Resp 20 24 B/P (MAP) 168/86 (113) 197/107 (137) Pulse Ox 96 96 O2 Delivery Room Air Room Air Room Air 07/10/19 11:54 Temp 37.3 Pulse 77 Resp 22 B/P (MAP) 178/93 (121) Pulse Ox 100 O2 Delivery Room Air 07/10/19 00:00 Intake Total 1640 ml Balance 1640 ml Weight (Pounds): 155 Weight (Ounces): 8.0 Weight (Calculated Kilograms): 70.987316 Constitutional: appears stated age, AAO x 3; No apparent distress; well- developed, well-nourished Respiratory: No accessory muscle use, No respiratory distress, No chest tender, No chest expansion is symmetric; chest is bilaterally symmetric; No lungs clear to percussion; lungs clear to auscultation; No crackles, No rhonchi, No rales, No stridor, No wheezing, No pleural rub, No other Cardiovascular: regular rate-rhythm; No irregularly irregular, No extra beats, No parasternal heave is noted, No JVD, No edema, No bradycardia, No tachycardia, No point of maximal impulse, No cardiac thrills are palpable; S1 and S2; No gallop/S3, No gallop/S4, No diastolic murmur, No systolic murmur, No friction rub, No click, No other Gastrointestional: soft, round, audible bowel sounds; No spleenomegaly Extremities: normal range of motion, non-tender, normal inspection; No clubbing, No cyanosis; no lower extremity edema bilateral; No significant edema Neurologic/Psychiatric: no motor/sensory deficits, alert, normal mood/affect, oriented x 3, power is 5/5 both on sides Skin: normal color; No rash, No ulcerations Results/Procedures: Labs Laboratory Tests 07/10/19 06:50: White Blood Count 4.0L, Red Blood Count 3.42L, Hemoglobin 10.0L, Hematocrit 31L, Mean Corpuscular Volume 90, Mean Corpuscular Hemoglobin 29, Mean Corpuscular Hemoglobin Concent 32, Red Cell Distribution Width 14.9H, Platelet Count 334, Mean Platelet Volume 9.7, Neutrophils (%) (Auto) 44, Lymphocytes (%) (Auto) 41, Monocytes (%) (Auto) 8, Eosinophils (%) (Auto) 7, Basophils (%) (Auto) 1, Neutrophils # (Auto) 1.8, Lymphocytes # (Auto) 1.6, Monocytes # (Auto) 0.3, Eosinophils # (Auto) 0.3, Basophils # (Auto) 0.0, Sodium Level 139, Potassium Level 5.5H, Chloride Level 112H, Carbon Dioxide Level 22, Anion Gap 5, Blood Urea Nitrogen 29H, Creatinine 1.23, Estimat Glomerular Filtration Rate 45, BUN/Creatinine Ratio 24, Glucose Level 88, Calcium Level 8.7, Corrected Calcium 9.1, Total Bilirubin 0.2, Aspartate Amino Transf (AST/SGOT) 13, Alanine Aminotransferase (ALT/SGPT) 15, Alkaline Phosphatase 75, Total Protein 6.7, Albumin 3.5 Microbiology 07/07/19 Blood Culture - Preliminary, Resulted No growth 07/07/19 Urine Culture - Final, Complete 3 or more isolates A/P: Assessment/Dx: Chest pain, positive troponin, Diarrhea, Acute kidney injury, History of LV systolic dysfunction, Mild CAD, Hypertension Plan: Chest pain, positive troponin, serial troponin did not reveal any significant rise, in fact troponin is decreasing. Could be secondary to acute respiratory failure daily as ago. Also the chest pain is reproducible. She had coronary angiography in February 2018 which showed very mild CAD. Nuclear stress test done 07/09/2019 shows normal myocardial perfusion during rest and stress. Okay to discharge from a cardiology perspective. Can follow-up with me in the office in 4-6 weeks. Diarrhea, IV fluids. Acute kidney injury, IV fluids. History of LV systolic dysfunction, continue outpatient medical therapy of cardiomyopathy. Echocardiogram done 07/08/2019 showed normal LV function. Mild CAD, based on coronary angiography in 02/2018. Hypertension, well controlled. Thank you for your consultation. Please call me if you have any questions. Brinda Jenkins MD, FACP, FACC, FSCAI, FHRS, CCDS Interventional Cardiology Cardiac Electrophysiology Vascular Medicine and Endovascular Interventions Clinical Quality Measures AMI/AHF: ASA po Prior to arrival: Paolo Rodriguez MD Jul 10, 2019 13:39
[2019-07-10 16:40] VITALS: BP 178/93
--- NOTE | 2019-07-12 08:35 | NUR ---
CM/ALANNA spoke with Racheal at [facility] and let her know that the she had discharged from the hospital to home.
--- NOTE | 2019-07-12 15:20 | Cardiology Stress Test Report ---
Stress Test Report Type of NM Stress Test: Test Type: LEXISCAN 0.4MG/5ML Date of Procedure/Referring: Date of Procedure: Jul 08, 2019 PCP Deepika Patel DO Admitting Physician [place] Indications: Chest pain Baseline Heart Rate: 85 Baseline Blood Pressure: Blood Pressure Systolic: 178 Blood Pressure Diastolic: 93 Baseline EKG: Baseline EKG: sinus rhythm Summary & Conclusion: Summary: The patient was brought to the stress lab after informed consent was taken. Stress test was performed according to the Lexiscan protocol. 0.4 mg of IV Lexiscan was given. Low-grade exercise was performed. Baseline EKG showed sinus rhythm at 85 BPM. Initial blood pressure was 178/102 mmHg. Maximum heart rate was 116 bpm and blood pressure 225/108 mmHg. Patient did not have any chest pain, arrhythmias or ST segment changes during the stress test. 10.49 mCi of Myoview were given for rest imaging and 29.4 mCi of Myoview given for stress imaging. Transient ischemic dilatation score 1.07, EF 50 percent. Normal wall motion. Normal myocardial perfusion imaging during rest and stress. Episode of brief seizure in the recovery period. Conclusion: Pharmacological stress test was negative for ischemia. Normal LV function with no wall motion abnormalities. Normal myocardial perfusion imaging during rest and stress. Episode of brief seizure in the recovery period, the primary team was informed. Paolo PERKINS MD Jul 12, 2019 15:20
[2019-07-13] MEDS ORDERED: NS W/KCL 20 MEQ/L 1,000 ML IV ONE (23:20)
--- NOTE | 2019-07-15 12:12 | Physician Query Clarification ---
PQ-Intro New Diagnosis Admission/Discharge Admission Date: Jul 07, 2019 at 09:23 Discharge Date: Jul 10, 2019 at 16:40 The medical record reflects the following clinical scenario: History/Risk Factors: chest pain, acute renal failure, dehydration, hypertensive urgency Clinical Findings: Troponin 0.138 down 0.123, serial troponin did not reveal any significant rise, in fact troponin is decreasing. Could be secondary to acute respiratory failure daily as ago. Treatment: stress test, serial Troponin's Question: What condition best reflects the above clinical scenario? Please document a response in the Progress Noter or Discharge Summary. 1. resolving troponin elevation due to prior hospitalization of acute respiratory failure 2. Type 2 [place] 3. Other, with explanation of the clinical findings. 4. Clinically undetermined, no explanation for the clinical findings. PHYSICIAN RESPONSE What condition reflects above: Other, explanation/clinical finding Explanation of clincal finding likely troponin leak from recent acute respiratory failure. Please remember a lack of response to the above will prompt a phone page by CDI/Coding staff. In responding to this query, please exercise your independent professional judgment. The purpose of this communication is to more accurately reflect the complexity of your patients condition. The fact that a question is asked does not imply that any particular answer is desired or expected. Thank you for your timely response to this clarification. Requestors name: Najma THIS PHYSICIAN QUERY FORM IS A PERMANENT PART OF THE MEDICAL RECORD NAJMA ESTEBAN Jul 15, 2019 12:11 Paolo PERKINS MD Jul 16, 2019 09:30
== END 2019-07-10 16:40 | disposition home or self-care (01) | DRG 683 ==
LOC: EDUNIT# 06:06 → ER 06:08 → 4TH 09:23
PROVIDERS: ADMIT Internal Medicine; ATTEND Internal Medicine
DX: N17.9 Acute kidney failure, unspecified (principal); K56.7 Ileus, unspecified; E86.0 Dehydration; I16.0 Hypertensive urgency; I10 Essential (primary) hypertension; G40.909 Epilepsy, unspecified, not intractable, without status epilepticus; K21.9 Gastro-esophageal reflux disease without esophagitis; F41.9 Anxiety disorder, unspecified; F31.9 Bipolar disorder, unspecified; I25.10 Atherosclerotic heart disease of native coronary artery without angina pectoris; J44.9 Chronic obstructive pulmonary disease, unspecified; D64.9 Anemia, unspecified; I38 Endocarditis, valve unspecified; F15.10 Other stimulant abuse, uncomplicated; R78.89 Finding of other specified substances, not normally found in blood; F17.210 Nicotine dependence, cigarettes, uncomplicated; R07.9 Chest pain, unspecified; Z90.710 Acquired absence of both cervix and uterus; Z90.722 Acquired absence of ovaries, bilateral
CPT/HCPCS: 36415; 71045; 76937; 78452; 80053; 80061; 81000; 83605; 83735; 83874; 83880; 84484; 85025; 85610; 85730; 87040; 87088; 93005; 93017; 93041; 93306; 96374; 96375

== ENCOUNTER 2019-08-12 05:26 | Inpatient (IN) | payer MEDICAID ==
[~2019-08-12] VITALS: Ht 172 cm; Wt 71.2 kg
[2019-08-12] VITALS (12 sets, daily range): BP systolic 79–120; BP diastolic 46–92
[~2019-08-12 05:26] MED LIST changes: +ASPI-999 PO
[2019-08-12] MEDS ORDERED: LACTATED RINGERS 1,000 ML IV ONE (05:32)
--- NOTE | 2019-08-12 05:42 | ED Neurological Problem ---
General Chief Complaint: Neurological Problems Stated Complaint: SEIZURE Source: patient Exam Limitations: no limitations (MICHAEL FOX) History of Present Illness Date Seen by Provider: Aug 12, 2019 Time Seen by Provider: 05:29 Initial Comments Patient resents to ER by EMS from her home in [facility] with chief complaint of seizure-like activity. She called EMS herself and was able to say ambulance so [facility] arrived and she was laying on the floor in her kitchen with a generalized body tremor. EMS said that they witnessed some tonic-clonic seizure- like activity lasting less than 2 minutes. They got her out of the gurney and she had one more episode for about a minute on route. They're unable to gain IV access. They are not aware of her history and were able to get her name only from her wallet. She did not give any meaningful history. She's had lots of jerking, her tremor like activity. Patient does admit to having used methamphetamines today. She gives further history that she is out of 2 or 3 medications but she does not know what they are. She says she's been taking all of her other medications as prescribed. (MICHAEL FOX) Allergies and Home Medications Allergies Coded Allergies: nitrous oxide (Verified Allergy, Unknown, 06/08/07) Home Medications Acetaminophen 500 Mg Tablet, 1,000 MG PO Q6H PRN for PAIN-MILD, (Reported) Amlodipine Besylate 10 Mg Tablet, 10 MG PO DAILY, (Reported) Aspirin 81 Mg Tab.chew, 81 MG PO DAILY@0900 Prescribed by: RAJAN VALDOVINOS on 07/10/19 1310 Clonidine HCl 0.2 Mg Tablet, 0.2 MG PO BID, (Reported) Cyclobenzaprine HCl 10 Mg Tablet, 10 MG PO BID PRN for MUSCLE SPASMS, (Reported) Hydralazine HCl 50 Mg Tablet, 50 MG PO TID, (Reported) Hydroxyzine HCl 25 Mg Tablet, 25 MG PO TID PRN for ANXIETY, (Reported) Losartan Potassium 100 Mg Tablet, 100 MG PO DAILY, (Reported) Metoprolol Succinate 100 Mg Tab.er.24h, 100 MG PO DAILY, (Reported) Oxcarbazepine 600 Mg Tablet, 600 MG PO BID, (Reported) Phenobarbital 97.2 Mg Tablet, 97.2 MG PO DAILY, (Reported) Prazosin HCl 1 Mg Capsule, 1 MG PO HS, (Reported) Ranitidine HCl 150 Mg Tablet, 150 MG PO HS, (Reported) Patient Home Medication List Home Medication List Reviewed: Yes (MICHAEL FOX) Review of Systems Review of Systems Constitutional: see HPI (patient unable to give any meaningful review of systems) (MICHAEL FOX) Past Rydahyu-Rpiflz-Llygcc Hx Patient Social History Recreational Drug Use: Yes Drug of Choice: HX OF IV METH USE Smoking Status: Current Everyday Smoker Type Used: Cigarettes 2nd Hand Smoke Exposure: Yes Recent Foreign Travel: No Contact w/Someone Who Travel: No Recent Hopitalizations: No (MICHAEL FOX) Immunizations Up To Date Tetanus Booster (TDap): Less than 5yrs PED Vaccines UTD: No Date of Pneumonia Vaccine: Jul 13, 2012 Date of Influenza Vaccine: Jul 28, 2018 (MICHAEL FOX) Seasonal Allergies Seasonal Allergies: No (MICHAEL FOX) Past Medical History Surgeries: Yes (hernia repair, T&A, hysterectomy, bladder suspension, multi to left leg, ) Abdominal, Adenoidectomy, Hysterectomy, Oophorectomy, Tonsillectomy Respiratory: Yes (SUPPOSED TO WEAR O2 AT HS AT 2 1/2-3L AT HS AND PRN) COPD Currently Using CPAP: No Currently Using BIPAP: No Cardiac: Yes Hypertension, Valvular Heart Disease Neurological: Yes (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; CVA LEFT SIDE WEAKNESS, POOR BALANCE/USES WALKER) Seizure Disorder, Stroke 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 Disorders: No Female 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 Sexually Transmitted Disease: No HIV/AIDS: No Kidney Infection, Bladder Infection, Kidney Stones, Renal Failure, UTI-Chronic Gastrointestinal: Yes (CHRONIC ABDOMINAL PAIN COMPLAINT; GASTRITIS; HEPATITIS C) Gastroesophageal Reflux Musculoskeletal: Yes Arthritis, Chronic Back Pain Endocrine: No HEENT: No Loss of Vision: Denies Hearing Impairment: Denies Cancer: No Cervical Psychosocial: Yes (SUBSTANCE ABUSE) Anxiety, Bipolar, Depression Integumentary: No Blood Disorders: Yes (ANEMIA) Adverse Reaction/Blood Tranf: No (MICHAEL FOX) Family Medical History Abdominal aortic aneurysm 03 FATHER Alcoholism 03 FATHER 03 MOTHER 09 SISTER 09 SISTER Cancer 03 FATHER Cataract 03 FATHER 03 MOTHER Chest pain 03 MOTHER Family history: Diabetes mellitus 03 MOTHER Family history: Hypertension 03 MOTHER Family history: Thyroid disorder 03 MOTHER Headache 09 SISTER Heart disease 03 MOTHER History of drug abuse 03 FATHER 09 SISTER Myocardial infarction 03 MOTHER No Family History of: Quay's disease Aphasia Cancer of colon Congenital heart disease Congestive heart failure Cystic fibrosis Dementia Dysphagia Family history: Allergy Family history: Alzheimer's disease Family history: Arthritis Family history: Asthma Family history: Breast disease Family history: Cardiovascular disease Family history: Coronary thrombosis Family history: Gastrointestinal disease Family history: Glaucoma Family history: Osteoporosis Hearing loss Hereditary disease History of - anemia History of - disorder History of - respiratory disease Human immunodeficiency virus (HIV) seropositivity Hypercholesterolemia Infertile Kidney disease Malignant neoplasm of lung Parkinson's disease Prostate cancer Psychotic disorder Seizure disorder Stroke Tuberculosis Visual impairment Diabetes (MICHAEL FOX) Physical Exam Vital Signs Vital Signs - First Documented 08/12/19 05:29 Temp 35.1 Pulse 64 Resp 16 B/P (MAP) 139/124 (129) Pulse Ox 100 O2 Flow Rate 2.00 (QUIN JONES MD) Vital Signs Capillary Refill : (MICHAEL FOX) Height, Weight, BMI Height: 5'3.00" Weight: 155lbs. 8.0oz. 70.374477nt; 27.81 BMI Method:Stated General Appearance: other (disheveled, generalized jerking) HEENT: PERRL/EOMI, TMs normal, pharynx normal Neck: non-tender, full range of motion, normal inspection Respiratory: lungs clear, normal breath sounds, no respiratory distress, no accessory muscle use Cardiovascular: normal peripheral pulses, regular rate, rhythm Peripheral Pulses: 2+ Radial Pulses (R), 2+ Radial Pulses (L) Gastrointestinal: non tender, soft Neurologic/Psychiatric: alert, other (generalized jerking. Answers with grunts and yes and no sparingly; GCS 13 points.) Crainal Nerves: PERRL (MICHAEL FOX) Procedures/Interventions Date of ETT Placement: Jul 02, 2019 Time of ETT Placement: 1236 (MICHAEL FOX) Progress/Results/Core Measures Results/Orders Lab Results Laboratory Tests Test 08/12/19 05:50 08/12/19 06:13 Range/Units White Blood Count 9.9 4.3-11.0 10^3/uL Red Blood Count 3.74 L 4.35-5.85 10^6/uL Hemoglobin 10.9 L 11.5-16.0 G/DL Hematocrit 34 L 35-52 % Mean Corpuscular Volume 90 80-99 FL Mean Corpuscular Hemoglobin 29 25-34 PG Mean Corpuscular Hemoglobin Concent 32 32-36 G/DL Red Cell Distribution Width 14.7 H 10.0-14.5 % Platelet Count 321 130-400 10^3/uL Mean Platelet Volume 10.4 7.4-10.4 FL Neutrophils (%) (Auto) 84 H 42-75 % Lymphocytes (%) (Auto) 13 12-44 % Monocytes (%) (Auto) 2 0-12 % Eosinophils (%) (Auto) 1 0-10 % Basophils (%) (Auto) 0 0-10 % Neutrophils # (Auto) 8.3 H 1.8-7.8 X 10^3 Lymphocytes # (Auto) 1.3 1.0-4.0 X 10^3 Monocytes # (Auto) 0.2 0.0-1.0 X 10^3 Eosinophils # (Auto) 0.1 0.0-0.3 10^3/uL Basophils # (Auto) 0.0 0.0-0.1 10^3/uL Prothrombin Time 12.2 12.2-14.7 SEC INR Comment 0.9 0.8-1.4 Activated Partial Thromboplast Time 37 H 24-35 SEC Sodium Level 136 135-145 MMOL/L Potassium Level 4.9 3.6-5.0 MMOL/L Chloride Level 102 98-107 MMOL/L Carbon Dioxide Level 20 L 21-32 MMOL/L Anion Gap 14 5-14 MMOL/L Blood Urea Nitrogen 69 H 7-18 MG/DL Creatinine 2.55 H 0.60-1.30 MG/DL Estimat Glomerular Filtration Rate 19 BUN/Creatinine Ratio 27 Glucose Level 144 H 70-105 MG/DL Calcium Level 8.5 8.5-10.1 MG/DL Corrected Calcium 8.4 L 8.5-10.1 MG/DL Magnesium Level 2.5 H 1.6-2.4 MG/DL Total Bilirubin 0.2 0.1-1.0 MG/DL Aspartate Amino Transf (AST/SGOT) 15 5-34 U/L Alanine Aminotransferase (ALT/SGPT) 17 0-55 U/L Alkaline Phosphatase 78 40-136 U/L Ammonia 30 11-32 UMOL/L Troponin I 0.406 *H <0.028 NG/ML C-Reactive Protein High Sensitivity 0.18 0.00-0.50 MG/DL Total Protein 7.5 6.4-8.2 GM/DL Albumin 4.1 3.2-4.5 GM/DL Salicylates Level < 5.0 L 5.0-20.0 MG/DL Acetaminophen Level < 10 L 10-30 UG/ML Serum Alcohol < 10 <10 MG/DL Urine Color YELLOW Urine Clarity CLEAR Urine pH 6.5 5-9 Urine Specific [place] 1.015 L 1.016-1.022 Urine Protein 2+ H NEGATIVE Urine Glucose (UA) 1+ H NEGATIVE Urine Ketones NEGATIVE NEGATIVE Urine Nitrite NEGATIVE NEGATIVE Urine Bilirubin NEGATIVE NEGATIVE Urine Urobilinogen NORMAL NORMAL MG/DL Urine Leukocyte Esterase NEGATIVE NEGATIVE Urine RBC (Auto) NEGATIVE NEGATIVE Urine RBC NONE /HPF Urine WBC RARE /HPF Urine Squamous Epithelial Cells RARE /HPF Urine Crystals NONE /LPF Urine Bacteria NEGATIVE /HPF Urine Casts NONE /LPF Urine Mucus NEGATIVE /LPF Urine Culture Indicated NO Urine Opiates Screen NEGATIVE NEGATIVE Urine Oxycodone Screen NEGATIVE NEGATIVE Urine Methadone Screen NEGATIVE NEGATIVE Urine Propoxyphene Screen NEGATIVE NEGATIVE Urine Barbiturates Screen POSITIVE H NEGATIVE Ur Tricyclic Antidepressants Screen NEGATIVE NEGATIVE Urine Phencyclidine Screen NEGATIVE NEGATIVE Urine Amphetamines Screen NEGATIVE NEGATIVE Urine Methamphetamines Screen NEGATIVE NEGATIVE Urine Benzodiazepines Screen NEGATIVE NEGATIVE Urine Cocaine Screen NEGATIVE NEGATIVE Urine Cannabinoids Screen NEGATIVE NEGATIVE (QUIN JONES MD) Micro Results Microbiology 08/12/19 Influenza Types A,B Antigen (JOHANA) - Final, Complete (QUIN JONES MD) My Orders Orders - QUIN JONES MD Ns Iv 1000 Ml (Sodium Chloride 0.9%) (08/12/19 06:38) Ns Iv 1000 Ml (Sodium Chloride 0.9%) (08/12/19 06:39) Ua Culture If Indicated (08/12/19 07:13) Ct Chest Wo (08/12/19 07:48) Ed Iv/Invasive Line Start (08/12/19 07:55) Ns Iv 1000 Ml (Sodium Chloride 0.9%) (08/12/19 07:55) Influenza A And B Antigens (08/12/19 07:58) Phenobarbital (08/12/19 09:35) Levetiracetam Injection (Keppra Injectio (08/12/19 09:36) (QUIN JONES MD) Medications Given in ED Current Medications Medications Dose Ordered Sig/Tad Route Start Time Stop Time Status Last Admin Dose Admin Lactated Ringer's 1,000 ml @ 0 mls/hr Q0M ONCE IV 08/12/19 05:32 08/12/19 05:37 DC 08/12/19 06:08 1,000 MLS/HR Lorazepam 1 mg ONCE ONCE IVP 08/12/19 06:15 08/12/19 06:16 DC 08/12/19 06:08 1 MG Sodium Chloride 1,000 ml @ 0 mls/hr Q0M ONCE IV 08/12/19 06:38 08/12/19 06:40 DC 08/12/19 06:42 1,000 MLS/HR Sodium Chloride 1,000 ml @ 150 mls/hr Q6H40M ONCE IV 08/12/19 07:55 08/12/19 14:34 08/12/19 08:01 150 MLS/HR (QUIN JONES MD) Vital Signs/I&O 08/12/19 08/12/19 05:29 06:34 Temp 35.1 35.2 Pulse 64 60 Resp 16 19 B/P (MAP) 139/124 (129) 120/92 (101) Pulse Ox 100 91 O2 Flow Rate 2.00 2.00 (QUIN JONES MD) Progress Progress Note #1: Time: 05:42 Progress Note Toxics studies, CT of the head, chest x-ray EKG troponin labs urine and a Ashford catheter. We'll consider using Ativan as she seems very distressed. Progress Note #2: Time: 06:15 Progress Note Patient did Exhibit 1 minute of tonic-clonic activity so we gave her a milligram of Ativan. Prior to this however she was sitting up smiling and laughing talking and answering questions appropriately. This was consistent with a postictal phase. (MICHAEL FOX) Progress Note : Progress Note 0630: I have assumed care of the patient from Dr. Fox pending radiological reports. Labs also pending. Ashford catheter in place now. She is having Fearing blood pressures and it's hard to determine if its from placement, movements or if it's real blood pressures as they are arranging quite a bit. She has 1 L of the LS running now. We will give a second liter of fluid. I have reexamined the patient and agree with above. She has markedly drowsy after Ativan. 0745: We will go ahead and get CT of the chest after reviewing x-ray results. Patient has been resting comfortably. She does have acute renal failure that will need to be addressed and her troponin is slightly elevated. Records review shows that she is frequently elevated on her troponin. She did have heart catheter last year that showed probable microvascular disease but no significant blockages. She will need admission. We will await CT results of the chest and then call for ad mission. She is a patient of [facility]. Blood pressure remains labile. She does not have any signs of infection currently. We will continue normal saline at 150 mL an hour. 0931: I did discuss the case with Dr. Arriaga. She accepts patient for admission, inpatient status to the ICU. Patient has no indications of infection and no findings concerning for sepsis at this time. I d o believe this event is related to seizure disorder and dehydration. Troponin was elevated as discussed above. We will follow that. We will continue fluids as discussed above. We have added phenobarbital level and Keppra 500 mg IV. Orders written. Admit, inpatient status. Dr. Balderrama consulted. (QUIN JONES MD) Initial ECG Impression Date: Aug 12, 2019 (MICHAEL FOX) Initial ECG Impression Time: 06:03 Initial ECG Rate: 61 Comment Sinus rhythm with left ventricular hypertrophy and intraventricular conduction delay. No evidence of ST elevation [place]. Normal axis. Similar to 07/07/19. Interpreted by me. (QUIN JONES MD) Diagnostic Imaging Diagonstic Imaging: Xray Plain Films/CT/US/NM/MRI: chest (1v) Reviewed: Reviewed by Me Diagonstic Imaging: CT (without IV contrast) Plain Films/CT/US/NM/MRI: c-spine, head Reviewed: Reviewed Night Turner Study, Reviewed by Me (MICHAEL FOX) Comments [facility] POS [place] POS NAME: KEREN MAX [facility] REC#: [id number] PT STATUS: REG ER : 1960 PHYSICIAN: MICHAEL FOX MD ADMIT DATE: 08/12/19/ER Draft POSDate of Exam:08/12/19 CHEST 1 VIEW, AP/PA ONLY INDICATION: Found down Upright portable AP view of the chest is obtained. Comparison is made to study of 07/07/2019. Heart size and pulmonary vascularity are at the upper limits of normal. There is mild prominence of the superior mediastinum compared to previous study. There is no pneumothorax or significant pleural fluid. IMPRESSION: Probable mild pulmonary venous congestion which may be secondary to congestive heart failure. Widening of superior mediastinum may be artifactual although mediastinal hematoma is not excluded. Follow-up PA and lateral views of the chest would be of use. Dictated on workstation # [id number] Dict: 08/12/1942 Trans: 08/12/1946 [facility] [id number] Interpreted by: LEODAN WALTER MD Electronically signed by: Comments [facility] POS [place], [place] POS NAME: KEREN MAX [facility] REC#: [id number] PT STATUS: REG ER : 1960 PHYSICIAN: MICHAEL FOX MD ADMIT DATE: 08/12/19/ER Draft POSDate of Exam:08/12/19 CT HEAD/CERVICAL SPINE WO PROCEDURE: CT head and CT cervical spine without contrast. TECHNIQUE: Multiple contiguous axial images were obtained through the brain and cervical spine without the use of intravenous contrast. Sagittal and coronal reformations through the cervical spine were then performed. Auto Exposure Controls were utilized during the CT exam to meet ALARA standards for radiation dose reduction. INDICATION: Seizure, found down. CT HEAD: Comparison is made to study of 07/02/2019. FINDINGS: Ventricles and sulci remain within normal limits for size. There is no evidence of intracranial hemorrhage. There is a persistent lucency within the high right frontal white matter which may be related to old infarct. Otherwise, there are scattered small punctate regions of low density which may also be secondary to chronic microvascular ischemia. There is no abnormal mass effect or shift of midline structures. There is atherosclerotic calcification present within distal internal carotid and vertebral arteries. Calvarium is intact and the visualized paranasal sinuses are clear. Debris or cerumen is noted in the left external auditory canal. IMPRESSION: Stable CT scan of the head without acute intracranial abnormality. Given the presence of white matter change, consideration could be given to MRI for assessment and exclusion of acute infarct. CT cervical spine: FINDINGS: There is diffuse disc space narrowing and degenerative facet arthropathy greater on the left. No fracture is identified. There is grade 1 anterolisthesis of C7 on T1. This may be on the basis of degenerative facet arthropathy. No paraspinous hematoma is identified, however there is increased density in the subcutaneous tissues of the lower right neck possibly related to contusion. IMPRESSION: No acute osseous abnormality is identified. There are degenerative findings in the cervical spine. Subcutaneous edema and/or contusion is noted in the lower right neck and clinical correlation is recommended. Dictated on workstation # [id number] Dict: 08/12/19 0746 Trans: 08/12/19 0757 [id number] Interpreted by: LEODAN WALTER MD Electronically signed by: (QUIN JONES MD) Transfer of Care Time: 06:16 Care transferred to: Dr. Jones (MICHAEL FOX) Departure Communication (Admissions) Time/Spoke to Admitting Phy: 09:31 Time/Spoke to Consulting Phy: 10:10 (QUIN JONES MD) Impression Primary Impression: Seizure disorder Additional Impressions: Acute renal failure Qualified Codes: N17.9 - Acute kidney failure, unspecified Elevated troponin Altered mental status Qualified Codes: R41.82 - Altered mental status, unspecified Disposition: 09 ADMITTED INPATIENT Condition: Stable Admissions Decision to Admit Reason: Admit from ER (General) Decision to Admit/Date: Aug 12, 2019 Time/Decision to Admit Time: 09:31 (QUIN JONES MD) Departure-Patient Inst. Referrals: [facility] (PCP/Family) Primary Care Physician MICHAEL FOX Aug 12, 2019 05:42 QUIN HALL MD Aug 12, 2019 07:44 POS
[2019-08-12 06:00] LABS: BASOPHILS % (AUTO) 0 % (0-10); EOSINOPHILS # (AUTO) 0.1 10^3/uL (0.0-0.3); EOSINOPHILS % (AUTO) 1 % (0-10); HEMATOCRIT 34 % (35-52); HEMOGLOBIN 10.9 G/DL (11.5-16.0); LYMPHOCYTES # (AUTO) 1.3 X 10^3 (1.0-4.0); LYMPHOCYTES % (AUTO) 13 % (12-44); MEAN CORPUSCULAR HEMOGLOBIN 29 PG (25-34); MEAN CORPUSCULAR HGB CONC 32 G/DL (32-36); MEAN CORPUSCULAR VOLUME 90 FL (80-99); MEAN PLATELET VOLUME 10.4 FL (7.4-10.4); MONOCYTES # (AUTO) 0.2 X 10^3 (0.0-1.0); MONOCYTES % (AUTO) 2 % (0-12); NEUTROPHILS # (AUTO) 8.3 X 10^3 (1.8-7.8); NEUTROPHILS % (AUTO) 84 % (42-75); PLATELET COUNT 321 10^3/uL (130-400); RED CELL DISTRIBUTION WIDTH 14.7 % (10.0-14.5); WHITE BLOOD COUNT 9.9 10^3/uL (4.3-11.0)
--- NOTE | 2019-08-12 06:00 | NUR ---
abg order verbal from dr dean to discontinue this order and not draw at this time.
[2019-08-12] MEDS ORDERED: LORazepam INJ 2 MG/ML (ATIVAN) VIAL ONE (06:06)
[2019-08-12 06:14] LABS: INR 0.9 (0.8-1.4); PROTHROMBIN TIME PATIENT 12.2 SEC (12.2-14.7)
[2019-08-12] MEDS ORDERED: LORazepam INJ 2 MG/ML (ATIVAN) VIAL IVP ONE (06:15)
[2019-08-12 06:25] LABS: ALANINE AMINOTRANSFERASE 17 U/L (0-55); ALBUMIN 4.1 GM/DL (3.2-4.5); ALKALINE PHOSPHATASE 78 U/L (40-136); AMMONIA 30 UMOL/L (11-32); BILIRUBIN,TOTAL 0.2 MG/DL (0.1-1.0); BUN/CREATININE RATIO 27; CALCIUM 8.5 MG/DL (8.5-10.1); CARBON DIOXIDE 20 MMOL/L (21-32); CHLORIDE 102 MMOL/L (98-107); CREATININE SERUM 2.55 MG/DL (0.60-1.30); GFR ESTIMATED 19; GLUCOSE 144 MG/DL (70-105); MAGNESIUM 2.5 MG/DL (1.6-2.4); POTASSIUM 4.9 MMOL/L (3.6-5.0); SALICYLATE < 5.0 MG/DL (5.0-20.0); SODIUM 136 MMOL/L (135-145); TOTAL PROTEIN 7.5 GM/DL (6.4-8.2)
[2019-08-12 06:29] LABS: ACETAMINOPHEN < 10 UG/ML (10-30)
[2019-08-12 06:29] LABS: AMPHETAMINE SCREEN, URINE NEGATIVE (NEGATIVE); BARBITURATE SCREEN URINE POSITIVE (NEGATIVE); BENZODIAZEPINES SCREEN URINE NEGATIVE (NEGATIVE); CANNABINOID SCREEN, URINE NEGATIVE (NEGATIVE); COCAINE SCREEN URINE NEGATIVE (NEGATIVE); METHADONE STAT NEGATIVE (NEGATIVE); METHAMPHETAMINE SCREEN URINE S NEGATIVE (NEGATIVE); OPIATE SCREEN URINE NEGATIVE (NEGATIVE); OXYCODONE STAT NEGATIVE (NEGATIVE); PROPOXYPHENE STAT NEGATIVE (NEGATIVE); TRICYCLIC ANTIDEPRESSANTS SCRE NEGATIVE (NEGATIVE)
[2019-08-12] MEDS ORDERED: NS IV 1000 ML 1,000 ML IV ONE ×2 (06:38→07:55)
[2019-08-12] MEDS ORDERED: NS IV 1000 ML 1,000 ML ONE (06:39)
--- NOTE | 2019-08-12 07:00 | NUR ---
REPORT FROM KRISTINE SALDIVAR
[2019-08-12 07:47] LABS: BILIRUBIN,URINE NEGATIVE (NEGATIVE); CLARITY,URINE CLEAR; COLOR,URINE YELLOW; GLUCOSE, URINE (UA) 1+ (NEGATIVE); KETONES,URINE NEGATIVE (NEGATIVE); LEUKOCYTE ESTERASE ,URINE NEGATIVE (NEGATIVE); NITRITE,URINE NEGATIVE (NEGATIVE); PH,URINE 6.5 (5-9); PROTEIN,URINE 2+ (NEGATIVE)
--- NOTE | 2019-08-12 07:47 | Diagnostic Imaging Report ---
INDICATION: Found down Upright portable AP view of the chest is obtained. Comparison is made to study of 07/07/2019. Heart size and pulmonary vascularity are at the upper limits of normal. There is mild prominence of the superior mediastinum compared to previous study. There is no pneumothorax or significant pleural fluid. IMPRESSION: Probable mild pulmonary venous congestion which may be secondary to congestive heart failure. Widening of superior mediastinum may be artifactual although mediastinal hematoma is not excluded. Follow-up PA and lateral views of the chest would be of use. Dictated by: Dictated on workstation # [id number]
--- NOTE | 2019-08-12 07:58 | Diagnostic Imaging Report ---
PROCEDURE: CT head and CT cervical spine without contrast. TECHNIQUE: Multiple contiguous axial images were obtained through the brain and cervical spine without the use of intravenous contrast. Sagittal and coronal reformations through the cervical spine were then performed. Auto Exposure Controls were utilized during the CT exam to meet ALARA standards for radiation dose reduction. INDICATION: Seizure, found down. CT HEAD: Comparison is made to study of 07/02/2019. FINDINGS: Ventricles and sulci remain within normal limits for size. There is no evidence of intracranial hemorrhage. There is a persistent lucency within the high right frontal white matter which may be related to old infarct. Otherwise, there are scattered small punctate regions of low density which may also be secondary to chronic microvascular ischemia. There is no abnormal mass effect or shift of midline structures. There is atherosclerotic calcification present within distal internal carotid and vertebral arteries. Calvarium is intact and the visualized paranasal sinuses are clear. Debris or cerumen is noted in the left external auditory canal. IMPRESSION: Stable CT scan of the head without acute intracranial abnormality. Given the presence of white matter change, consideration could be given to MRI for assessment and exclusion of acute infarct. CT cervical spine: FINDINGS: There is diffuse disc space narrowing and degenerative facet arthropathy greater on the left. No fracture is identified. There is grade 1 anterolisthesis of C7 on T1. This may be on the basis of degenerative facet arthropathy. No paraspinous hematoma is identified, however there is increased density in the subcutaneous tissues of the lower right neck possibly related to contusion. IMPRESSION: No acute osseous abnormality is identified. There are degenerative findings in the cervical spine. Subcutaneous edema and/or contusion is noted in the lower right neck and clinical correlation is recommended. Dictated by: Dictated on workstation # [id number]
[2019-08-12 08:00] LABS: BACTERIA,URINE NEGATIVE /HPF; SQUAMOUS EPITHELIAL CELL,UR RARE /HPF; WBC,URINE RARE /HPF
--- NOTE | 2019-08-12 08:05 | NUR ---
BACK FROM CT, PT CONT TO REST W EYES CLOSED, DIFFICULT TO AROUSE, VS,56,16,98%,93\55
--- NOTE | 2019-08-12 08:39 | Diagnostic Imaging Report ---
PROCEDURE: CT chest without contrast. TECHNIQUE: Multiple contiguous axial images were obtained through the chest without the use of intravenous contrast. Auto Exposure Controls were utilized during the CT exam to meet ALARA standards for radiation dose reduction. INDICATION: Abnormal chest x-ray, widened mediastinum. COMPARISON: Radiographs from same date as well as CT dated 07/02/2019. FINDINGS: No definite adenopathy within the chest, though evaluation for adenopathy is limited secondary to lack of intravenous contrast. No aneurysmal dilatation of the thoracic aorta. The heart is enlarged. No pericardial effusion. No significant pleural effusion. No pneumothorax. Dependent atelectasis and scarring is again noted within the posterior aspect of the lungs bilaterally with associated mild pleural thickening. The peripheral pulmonary interstitium appears minimally more prominent than the prior examination though there is no additional focal pulmonary opacity. The gallbladder wall appears thickened with suggestion of possible fluid about the gallbladder. However, the gallbladder is completely decompressed on this examination. The bilateral kidneys demonstrate lobulated contour, stable from prior exams. Visualized upper abdomen is otherwise unremarkable. No acute osseous abnormality. IMPRESSION: Mural thickening of the gallbladder with questionable adjacent fluid. Although this could simply relate to the gallbladder being poorly distended, acute cholecystitis should be considered. Recommend clinical correlation. If there is clinical concern for acute cholecystitis, then a right upper quadrant ultrasound be indicated. Slightly increased interstitial prominence bilaterally when compared to prior examination, favored to relate to minimal interstitial edema. Persistent bilateral dependent atelectasis. No evidence of a mediastinal hematoma. Apparent widening of the superior mediastinum on the prior radiograph is felt to simply related to vasculature. Dictated by: Dictated on workstation # [id number]
[2019-08-12] MEDS ORDERED: LEVETIRACETAM INJECTION 500 MG in NS (IVPB) 100 ML IV STA (09:36)
--- NOTE | 2019-08-12 10:30 | NUR ---
PT MOANING OUT LOUD, AND COUGHING, THEN GOES BACK TO SLEEP
[2019-08-12] MEDS ORDERED: CATHETER FLUSH 10 ML SYR IV PRN (12:45)
[2019-08-12] MEDS ORDERED: LORazepam INJ 2 MG/ML (ATIVAN) VIAL IV PRN (12:45)
[2019-08-12 13:23] LABS: ABG BASE EXCESS -4.1 MMOL/L (-2.5-2.5); ABG OXYGEN SATURATION 89 % (94-100); ABG PCO2 43 MMHG (35-45); ABG PO2 58 MMHG (79-93); ABG TCO2 22.6 MMOL/L (21.0-31.0)
[2019-08-12 13:27] LABS: ABG PH 7.31 (7.37-7.43); ALLENS TEST YES-POS; INSPIRED O2 2; PATIENT TEMP 36.2; VENTILATOR NO
[2019-08-12] MEDS: inSUlin ASPART (NovoLOG) 1 UNIT/0.01 ML (CHARGE PER UNIT) SQ SCH ×2 (13:55→18:04)
--- NOTE | 2019-08-12 14:06 | NUR ---
1330 DUE TO CHANGES IN STAFFING CARE OF PT TO THIS RN.
[2019-08-12] MEDS: NS IV 1000 ML 1,000 ML IV SCH ×2 (15:00→22:06)
[2019-08-12] MEDS ORDERED: SPIR25TA5 PO (15:25)
[2019-08-12] MEDS ORDERED: ASPI-999 PO (15:25)
--- NOTE | 2019-08-12 15:27 | NUR ---
UNABLE TO SPEAK WITH THE PATIENT ABOUT MEDICATIONS AT THIS TIME. I UPDATED THE MED REC WITH WHAT HAS BEEN FILLED AT [facility]. OTC MED ON FILE FROM PREVIOUS VISIT: TYLENOL PRN [facility] FILLED: PENDING: AMLODIPINE 10MG DAILY 08-03-19 SPIRONOLACTONE 25MG DAILY #30 08-03-19 RANITIDINE 150MG #30 07-16-19 PHENOBARBITAL 97.2MG DAILY #30 07-13-19 OXCARBAZEPINE 600MG BID #60 07-13-19 PRAZOSIN 1MG HS #30 07-13-19 HYDRALAZINE 50MG TID #90 07-13-19 CLONIDINE 0.2MG BID #60 07-13-19 ASA CHEW 81MG DAILY #30 07-05-19 METOPROLOL ER 100MG DAILY #30 06-28-19 HYDROXYZINE HCL 25MG TID PRN #90 REMOVED FROM THE MED REC: 11-26-18 CYCLOBENZAPRINE 10MG 11-29-18 LOSARTAN 100MG
--- NOTE | 2019-08-12 17:11 | NUR ---
DR COVINGTON NOTIFIED OF PT'S CONTINUED LOWER BLOOD PRESSURE 87/55 PULSE 55 NEW ORDERS RECEIVED TO GIVE 1 LITER IVF BOLUS AND IF BP CONTINUES TO BE LOW TO CONTACT E-ICU. IVF BOLUS STARTED PT CONTINUES TO SLEEP RESPIRATIONS EVEN AND UNLABORED. CALL LIGHT WITHIN REACH AND BED ALARM ON. WILL CONTINUE TO MONITOR.
[2019-08-12] MEDS ORDERED: NS IV 1000 ML 1,000 ML IV SCH (17:15)
[2019-08-12] MEDS ORDERED: LORazepam INJ 2 MG/ML (ATIVAN) VIAL IV NR (20:20)
[2019-08-12] MEDS ORDERED: HALOPERIDOL 5 MG/ML (HALDOL) AMP ONE (22:54)
[2019-08-12] MEDS ORDERED: LORazepam INJ 2 MG/ML (ATIVAN) VIAL IV ONE (23:30)
[2019-08-12] MEDS ORDERED: HALOPERIDOL 5 MG/ML (HALDOL) AMP IV ONE (23:30)
[2019-08-13] VITALS (23 sets, daily range): BP systolic 88–210; BP diastolic 45–108
[2019-08-13] MEDS: NS IV 1000 ML 1,000 ML IV SCH (01:10)
[2019-08-13] MEDS: inSUlin ASPART (NovoLOG) 1 UNIT/0.01 ML (CHARGE PER UNIT) SQ SCH ×4 (01:10→20:50)
[2019-08-13 03:34] LABS: BASOPHILS % (AUTO) 0 % (0-10); EOSINOPHILS # (AUTO) 0.2 10^3/uL (0.0-0.3); EOSINOPHILS % (AUTO) 2 % (0-10); HEMATOCRIT 35 % (35-52); HEMOGLOBIN 11.1 G/DL (11.5-16.0); LYMPHOCYTES % (AUTO) 22 % (12-44); MEAN CORPUSCULAR HEMOGLOBIN 29 PG (25-34); MEAN CORPUSCULAR HGB CONC 31 G/DL (32-36); MEAN CORPUSCULAR VOLUME 92 FL (80-99); MEAN PLATELET VOLUME 10.4 FL (7.4-10.4); MONOCYTES # (AUTO) 0.6 X 10^3 (0.0-1.0); MONOCYTES % (AUTO) 7 % (0-12); NEUTROPHILS # (AUTO) 6.4 X 10^3 (1.8-7.8); NEUTROPHILS % (AUTO) 70 % (42-75); PLATELET COUNT 302 10^3/uL (130-400); RED CELL DISTRIBUTION WIDTH 15.3 % (10.0-14.5); WHITE BLOOD COUNT 9.2 10^3/uL (4.3-11.0)
[2019-08-13 04:11] LABS: CREATININE SERUM 1.94 MG/DL (0.60-1.30); MAGNESIUM 2.4 MG/DL (1.6-2.4); PHOSPHORUS 4.9 MG/DL (2.3-4.7); POTASSIUM 5.3 MMOL/L (3.6-5.0)
[2019-08-13] MEDS: POTASSIUM CL 10MEQ/50ML IVPB 50 ML IV SCH (04:44)
[2019-08-13] MEDS: MAGNESIUM 1 GM/100 ML IVPB 100 ML IV SCH (04:44)
[2019-08-13] MEDS: KCL 20 MEQ TAB (K-DUR) PO SCH (04:45)
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
[2019-08-13] MEDS ORDERED: LACTATED RINGERS 1,000 ML IV SCH (05:30)
[2019-08-13] MEDS: LACTATED RINGERS 1,000 ML IV SCH ×4 (05:32→23:25)
[2019-08-13] MEDS ORDERED: NS (IVPB) 50 ML ONE (06:12)
[2019-08-13] MEDS ORDERED: fentaNYL INJECTION 100 MCG/2 ML AMP ONE (06:26)
[2019-08-13] MEDS ORDERED: MIDAZOLAM 5 MG/5 ML (VERSED) VIAL ONE (06:26)
--- NOTE | 2019-08-13 06:55 | Diagnostic Imaging Report ---
EXAM: CHEST 1 VIEW, AP/PA ONLY INDICATION: Dyspnea. COMPARISON: CT chest 08/12/2019. FINDINGS: Normal heart size and central pulmonary vascularity. No focal pulmonary opacity, pleural effusion or pneumothorax. No acute osseous findings. IMPRESSION: No acute cardiopulmonary findings. Dictated by: Dictated on workstation # [id number]
[2019-08-13] MEDS ORDERED: MIDAZOLAM 2 MG/2 ML (VERSED) VIAL IVP ONE (07:00)
[2019-08-13] MEDS ORDERED: fentaNYL INJECTION 100 MCG/2 ML AMP IVP ONE (07:00)
[2019-08-13] MEDS ORDERED: MIDAZOLAM 2 MG/2 ML (VERSED) VIAL IM ONE (07:00)
[2019-08-13] MEDS: LEVETIRACETAM INJECTION 500 MG in NS (IVPB) 100 ML IV SCH ×2 (10:09→21:35)
--- NOTE | 2019-08-13 10:45 | History & Physical-Hospitalist ---
History of Present Illness HPI/Chief Complaint Chief complaint, altered mental status with seizure activity History of present illness: This is a 58-year-old white female known to me from multiple hospital stays with a history of severe methamphetamine abuse along w ith seizure disorder who presented to the ER after calling the ambulance and once paramedics arrived they witnessed seizure activity. Supportive care was initiated in the ER she is placed in the ICU and at this current time she did receive first said so she is sedated and unable to give me any history but they attempted to place PICC line that her vessels are so scarred down from injection drug abuse were unable to obtain IV access. This is an unfortunate situation since she has a lot of organic based medical problems but due to the severity of her drug abuse her prognosis is extremely poor. Source: RN/, old records Exam Limitations: clinical condition Date Seen 08/13/19 Time Seen by a Provider: 09:00 Attending Physician Ccoo Arriaga MD [place] [place] Referring Physician Date of Admission Aug 12, 2019 at 09:48 Home Medications & Allergies Home Medications Reviewed patient Home Medication Reconciliation performed by pharmacy medication reconciliations combination technician and/or nursing. Patients Allergies have been reviewed. Allergies Allergies Coded Allergies nitrous oxide (Verified Allergy, Unknown, 06/08/07) Past Vfvlxuc-Dupvbb-Jtmxgb Hx Past Med/Social Hx: Reviewed Nursing Past Med/Soc Hx, Reviewed and Corrections made Patient Social History Marrital Status: single Employed/Student: unemployed Alcohol Use: Denies Use Recreational Drug Use: Yes Drug of Choice: HX OF IV METH USE Smoking Status: Current Everyday Smoker Type Used: Cigarettes 2nd Hand Smoke Exposure: Yes Recent Foreign Travel: No Contact w/other who traveled: No Recent Hopitalizations: No Recent Infectious Disease Expo: No Immunizations Up To Date Tetanus Booster (TDap): Less than 5yrs Pediatric: No Date of Pneumonia Vaccine: Jul 13, 2012 Date of Influenza Vaccine: Jul 28, 2018 Seasonal Allergies Seasonal Allergies: No Past Medical History Surgeries: Abdominal, Adenoidectomy, Hysterectomy, Oophorectomy, Tonsillectomy Respiratory: Pneumonia Currently Using CPAP: No Currently Using BIPAP: No Cardiac: Hypertension, Valvular Heart Disease Neurological: Seizure Disorder, Stroke 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: No Sexually Transmitted Disease: No HIV/AIDS: No Female 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 Hysterectomy Genitourinary: Kidney Infection, Bladder Infection, Kidney Stones, Renal Failure, UTI-Chronic Gastrointestinal: Gastroesophageal Reflux Musculoskeletal: Arthritis, Chronic Back Pain Loss of Vision: Denies Hearing Impairment: Denies Cancer: Cervical Psychosocial: Anxiety, Bipolar, Depression History of Blood Disorders: Yes (ANEMIA) Adverse Reaction to Blood New: No Family History Abdominal aortic aneurysm 03 FATHER Alcoholism 03 FATHER 03 MOTHER 09 SISTER 09 SISTER Cancer 03 FATHER Cataract 03 FATHER 03 MOTHER Chest pain 03 MOTHER Family history: Diabetes mellitus 03 MOTHER Family history: Hypertension 03 MOTHER Family history: Thyroid disorder 03 MOTHER Headache 09 SISTER Heart disease 03 MOTHER History of drug abuse 03 FATHER 09 SISTER Myocardial infarction 03 MOTHER No Family History of: Isael's disease Aphasia Cancer of colon Congenital heart disease Congestive heart failure Cystic fibrosis Dementia Dysphagia Family history: Allergy Family history: Alzheimer's disease Family history: Arthritis Family history: Asthma Family history: Breast disease Family history: Cardiovascular disease Family history: Coronary thrombosis Family history: Gastrointestinal disease Family history: Glaucoma Family history: Osteoporosis Hearing loss Hereditary disease History of - anemia History of - disorder History of - respiratory disease Human immunodeficiency virus (HIV) seropositivity Hypercholesterolemia Infertile Kidney disease Malignant neoplasm of lung Parkinson's disease Prostate cancer Psychotic disorder Seizure disorder Stroke Tuberculosis Visual impairment Diabetes Review of Systems Constitutional: see HPI Psychiatric/Neurological: Seizure Physical Exam Physical Exam Vital Signs Vital Signs - First Documented 08/12/19 08/12/19 05:29 10:04 Temp 35.1 Pulse 64 Resp 16 B/P (MAP) 139/124 (129) Pulse Ox 100 O2 Delivery Nasal Cannula O2 Flow Rate 2.00 Capillary Refill : Less Than 3 Seconds Height, Weight, BMI Height: 5'3.00" Weight: 155lbs. 8.0oz. 70.311266qy; 24.00 BMI Method:Stated General Appearance: No Apparent Distress, WD/WN, Chronically ill Respiratory: Lungs Clear, Normal Breath Sounds Cardiovascular: Regular Rate, Rhythm Neurologic/Psychiatric: Disoriented Results Results/Procedures Labs Laboratory Tests 08/12/19 05:50 08/13/19 03:25 Patient resulted labs reviewed. Assessment/Plan Admission Diagnosis Assessment: Altered mental status Severe methamphetamine abuse Seizure disorder with acute seizures Poor vascular access not a [place] port candidate due to IV drug abuse Elevated troponin Mental illness Plan: ICU Poor prognosis Home meds when alert Admission Status: Inpatient Order (span 2 midnights) Reason for Inpatient Admission: Severe altered mental status with elevated troponin and methamphetamine abuse Diagnosis/Problems Diagnosis/Problems (1) Altered mental status Status: Acute Qualifiers: Altered mental status type: unspecified Qualified Codes: R41.82 - Altered mental status, unspecified (2) Acute renal failure Status: Acute Qualifiers: Acute renal failure type: unspecified Qualified Codes: N17.9 - Acute kidney failure, unspecified (3) Elevated troponin Status: Acute (4) Seizure disorder Status: Acute (5) Hypertensive urgency Status: Acute (6) Drug abuse Status: Acute (7) Dehydration Status: Acute Clinical Quality Measures DVT/VTE Risk/Contraindication: Risk Factor Score Per Nursin RFS Level Per Nursing on Admit: 4+=Very High RAJAN VALDOVINOS DO Aug 13, 2019 10:45 POS
--- NOTE | 2019-08-13 10:59 | Pulmonary Progress Note ---
Subjective Time Seen by a Provider: 05:00 Subjective/Events-last exam Pt is lethargic Sepsis Event Evaluation Height, Weight, BMI Height: 5'3.00" Weight: 155lbs. 8.0oz. 70.743979kr; 24.00 BMI Method:Stated Exam Exam Vital Signs Date Time Temp Pulse Resp B/P (MAP) Pulse Ox O2 Delivery O2 Flow Rate FiO2 08/13/19 10:00 73 20 122/65 (84) 93 Nasal Cannula 3.00 08/13/19 09:00 74 14 111/58 (75) 94 Nasal Cannula 3.00 08/13/19 08:00 35.9 08/13/19 08:00 79 13 120/61 (80) 96 Nasal Cannula 3.00 08/13/19 07:00 79 19 99/53 (68) 90 Nasal Cannula 3.00 08/13/19 07:00 80 08/13/19 06:00 73 14 102/58 (73) 94 Nasal Cannula 3.00 08/13/19 05:00 71 16 98/55 (69) 95 Nasal Cannula 3.00 08/13/19 04:00 97 Nasal Cannula 3.00 08/13/19 04:00 67 14 98/59 (72) 97 Nasal Cannula 3.00 08/13/19 03:00 64 16 110/66 (81) 100 Nasal Cannula 3.00 08/13/19 02:00 69 14 100/51 (67) 95 Nasal Cannula 3.00 08/13/19 01:00 66 16 95/54 (68) 91 Nasal Cannula 3.00 08/13/19 01:00 66 08/13/19 00:00 97 Nasal Cannula 3.00 08/13/19 00:00 63 16 88/45 (59) 94 Nasal Cannula 3.00 08/12/19 23:00 66 13 85/67 (73) 95 Nasal Cannula 3.00 08/12/19 22:00 66 18 109/65 (80) 64 Nasal Cannula 3.00 08/12/19 21:28 66 18 107/63 (78) 90 Nasal Cannula 3.00 08/12/19 20:00 70 20 101/50 (67) 92 Nasal Cannula 3.00 08/12/19 20:00 97 Nasal Cannula 3.00 08/12/19 19:47 36.3 08/12/19 19:15 61 14 102/65 (77) 97 Nasal Cannula 3.00 08/12/19 19:00 58 15 88/63 (71) 97 Nasal Cannula 3.00 08/12/19 19:00 58 08/12/19 17:00 57 16 89/57 (68) 96 Nasal Cannula 3.00 08/12/19 16:25 97 Nasal Cannula 2.00 08/12/19 16:00 55 8 96/66 (76) 96 Nasal Cannula 3.00 08/12/19 15:45 35.7 08/12/19 15:00 53 15 89/54 (66) 96 Nasal Cannula 3.00 08/12/19 14:00 56 26 87/57 (67) 96 Nasal Cannula 3.00 08/12/19 13:40 97 Nasal Cannula 3.00 08/12/19 13:00 53 15 79/46 (57) 97 Nasal Cannula 3.00 08/12/19 12:53 Nasal Cannula 2.00 08/12/19 12:10 53 I & O 08/13/19 07:00 Intake Total 2800 ml Output Total 1525 ml Balance 1275 ml Height & Weight Height: 5'3.00" Weight: 155lbs. 8.0oz. 70.982682ye; 24.00 BMI Method:Stated General Appearance: Other (sedated from Ativan ) HEENT: PERRL/EOMI Neck: Full Range of Motion, Supple Capillary Refill: Less Than 3 Seconds Peripheral Pulses: 2+ Radial Pulses (R), 2+ Radial Pulses (L) Gastrointestinal: non tender, soft Results Lab Laboratory Tests 08/12/19 05:50 08/13/19 03:25 Assessment/Plan Assessment/Plan Seizure disorder -]Keppra -Head CT is negative Hypotension -Give another liter bolus -IVF and monitor Acute renal failure -IVF -Monitor Acute dehydration -IVF elevated troponin RICARDA COVINGTON DO Aug 13, 2019 10:59 POS
[2019-08-13] MEDS: ENOXAPARIN 40 MG/0.4 ML (LOVENOX) SYR SC SCH (15:35)
[2019-08-13] MEDS: DEXMEDETOMIDINE INJECTION 200 MCG in NS (IVPB) 50 ML IV SCH (22:54)
[2019-08-14] VITALS (23 sets, daily range): BP systolic 124–244; BP diastolic 57–124
[2019-08-14] MEDS: DEXMEDETOMIDINE INJECTION 200 MCG in NS (IVPB) 50 ML IV SCH (00:50)
[2019-08-14] MEDS: inSUlin ASPART (NovoLOG) 1 UNIT/0.01 ML (CHARGE PER UNIT) SQ SCH ×4 (00:52→16:26)
--- NOTE | 2019-08-14 03:56 | NUR ---
PT RESTLESS AND PULLING ON LINES - PRECEDEX STARTED (SEE IV SPREADSHEET). PT WOKE UP A FEW HOURS LATER WITH CONFUSION. PRECEDEX SHUT OFF AT THIS TIME TO EVAL MENTAL STATUS.
[2019-08-14 03:59] LABS: BASOPHILS % (AUTO) 0 % (0-10); EOSINOPHILS # (AUTO) 0.2 10^3/uL (0.0-0.3); EOSINOPHILS % (AUTO) 3 % (0-10); HEMATOCRIT 33 % (35-52); HEMOGLOBIN 10.2 G/DL (11.5-16.0); LYMPHOCYTES # (AUTO) 1.4 X 10^3 (1.0-4.0); LYMPHOCYTES % (AUTO) 26 % (12-44); MEAN CORPUSCULAR HEMOGLOBIN 29 PG (25-34); MEAN CORPUSCULAR HGB CONC 31 G/DL (32-36); MEAN CORPUSCULAR VOLUME 92 FL (80-99); MEAN PLATELET VOLUME 11.1 FL (7.4-10.4); MONOCYTES # (AUTO) 0.3 X 10^3 (0.0-1.0); MONOCYTES % (AUTO) 6 % (0-12); NEUTROPHILS # (AUTO) 3.4 X 10^3 (1.8-7.8); NEUTROPHILS % (AUTO) 65 % (42-75); PLATELET COUNT 202 10^3/uL (130-400); RED CELL DISTRIBUTION WIDTH 14.5 % (10.0-14.5); WHITE BLOOD COUNT 5.2 10^3/uL (4.3-11.0)
[2019-08-14 04:12] LABS: CALCIUM 8.2 MG/DL (8.5-10.1); CREATININE SERUM 1.38 MG/DL (0.60-1.30); MAGNESIUM 1.9 MG/DL (1.6-2.4); PHOSPHORUS 3.9 MG/DL (2.3-4.7); POTASSIUM 5.2 MMOL/L (3.6-5.0)
--- NOTE | 2019-08-14 04:14 | NUR ---
PATIENTS MENTAL STATUS IS PERSON, PLACE, SITUATION, AND TIME AFTER SHUTTING PRECEDEX DRIP OFF. PATIENT CURRENTLY RESTING PEACEFULLY IN BED.
[2019-08-14] MEDS: MAGNESIUM 1 GM/100 ML IVPB 100 ML IV SCH (04:23)
[2019-08-14] MEDS: KCL 20 MEQ TAB (K-DUR) PO SCH (04:23)
[2019-08-14] MEDS: POTASSIUM CL 10MEQ/50ML IVPB 50 ML IV SCH (04:23)
--- NOTE | 2019-08-14 05:48 | Pulmonary Progress Note ---
Subjective Time Seen by a Provider: 05:51 Subjective/Events-last exam Pt is now hypertensive however more awake/alert and following commands. Sepsis Event Evaluation Height, Weight, BMI Height: 5'3.00" Weight: 155lbs. 8.0oz. 70.038697xo; 24.00 BMI Method:Stated Exam Exam Vital Signs Date Time Temp Pulse Resp B/P (MAP) Pulse Ox O2 Delivery O2 Flow Rate FiO2 08/14/19 05:00 91 22 197/94 (128) 93 Nasal Cannula 2.00 08/14/19 04:00 37.0 08/14/19 04:00 85 55 165/85 (111) 93 Nasal Cannula 2.00 08/14/19 04:00 100 Nasal Cannula 2.00 08/14/19 03:00 65 16 124/71 (88) 98 Nasal Cannula 2.00 08/14/19 02:00 66 17 131/57 (81) 100 Nasal Cannula 2.00 08/14/19 01:00 73 08/14/19 01:00 73 17 126/61 (82) 100 Nasal Cannula 2.00 08/14/19 00:00 92 Nasal Cannula 2.00 08/14/19 00:00 82 16 141/67 (91) 96 Nasal Cannula 2.00 08/14/19 00:00 36.4 08/13/19 23:12 Nasal Cannula 2.00 08/13/19 23:00 96 24 210/94 (132) 90 Room Air 08/13/19 22:00 93 22 197/97 (130) 100 Room Air 08/13/19 21:00 93 15 206/108 (140) 96 Room Air 08/13/19 20:00 93 25 172/103 (126) 100 Room Air 08/13/19 20:00 36.7 08/13/19 20:00 94 Room Air 08/13/19 19:00 87 08/13/19 18:00 79 19 194/106 (135) 98 Room Air 08/13/19 17:00 80 19 190/105 (133) 100 Room Air 08/13/19 16:07 96 Room Air 08/13/19 16:00 85 17 168/95 (119) 93 Room Air 08/13/19 15:25 Room Air 08/13/19 15:00 77 15 148/89 (108) 93 Nasal Cannula 8.00 08/13/19 14:25 Nasal Cannula 5.00 08/13/19 14:14 92 OxyMask 8.00 08/13/19 14:00 82 21 152/67 (95) 89 Nasal Cannula 8.00 08/13/19 13:00 82 21 143/90 (107) 94 Nasal Cannula 8.00 08/13/19 13:00 79 08/13/19 12:00 36.0 08/13/19 12:00 97 OxyMask 3.00 08/13/19 12:00 81 17 139/76 (97) 99 Nasal Cannula 8.00 08/13/19 11:00 82 15 137/79 (98) 92 Nasal Cannula 8.00 08/13/19 10:00 73 20 122/65 (84) 93 Nasal Cannula 10.00 08/13/19 09:00 74 14 111/58 (75) 94 Nasal Cannula 10.00 08/13/19 08:00 35.9 08/13/19 08:00 79 13 120/61 (80) 96 Nasal Cannula 10.00 08/13/19 07:30 97 OxyMask 3.00 08/13/19 07:00 79 19 99/53 (68) 90 Nasal Cannula 10.00 08/13/19 07:00 80 08/13/19 06:00 73 14 102/58 (73) 94 Nasal Cannula 3.00 I & O 08/14/19 07:00 Intake Total 3110 ml Output Total 3725 ml Balance -615 ml Height & Weight Height: 5'3.00" Weight: 155lbs. 8.0oz. 70.929703se; 24.00 BMI Method:Stated General Appearance: No Apparent Distress, WD/WN, Chronically ill HEENT: PERRL/EOMI Neck: Full Range of Motion, Supple Respiratory: Lungs Clear, Normal Breath Sounds Cardiovascular: Regular Rate, Rhythm Capillary Refill: Less Than 3 Seconds Peripheral Pulses: 2+ Radial Pulses (R), 2+ Radial Pulses (L) Gastrointestinal: non tender, soft Extremity: Normal Capillary Refill, Non Tender Neurologic/Psychiatric: Alert, Oriented x3 Skin: Normal Color, Warm/Dry Lymphatic: No Adenopathy Results Lab Laboratory Tests 08/12/19 05:50 08/13/19 03:25 08/14/19 03:40 Assessment/Plan Assessment/Plan Seizure disorder -Keppra -Restart home meds Bipolar -restart home meds Hyperkalemia -Give 2 amps bicarb and kayexalate HTN -Restart home meds Acute renal failure -IVF -Monitor Acute dehydration -IVF elevated troponin UPDATE: RN 0640: RN called and said pt just had seizure tonic clonic that lasted 5min. Home meds were restarted this AM however not yet given. RICARDA COVINGTON DO Aug 14, 2019 05:48 POS
[2019-08-14] MEDS ORDERED: SOD POLYSTERENE 15 GM/60 ML (KAYEXALATE) UNIT DOSE PO ONE (06:00)
[2019-08-14] MEDS ORDERED: SODIUM BICARB 8.4% 50 MEQ/50 ML VIAL IV ONE (06:00)
[2019-08-14] MEDS ORDERED: SODIUM BICARB 8.4% 50 MEQ/50 ML VIAL ONE (06:13)
[2019-08-14] MEDS: LACTATED RINGERS 1,000 ML IV SCH (06:19)
--- NOTE | 2019-08-14 06:42 | NUR ---
620-- PATIENT BEGAN SEIZING WITH NURSE AT BEDSIDE 621-- ATIVAN 1 MG ADMINISTERED 627-- SEIZURE ENDED DR COVINGTON NOTIFIED- KEEPING PATIENT ON THE UNIT TO FURTHER OBSERVE.
--- NOTE | 2019-08-14 08:24 | Diagnostic Imaging Report ---
INDICATION: Shortness of breath COMPARISON: 08/13/2019 FINDINGS: Single view of the chest demonstrates cardiac enlargement without overt pulmonary edema. Chronic interstitial changes are present. There is no pneumothorax or effusion. Osseous structures are stable. IMPRESSION: Stable cardiac enlargement without pulmonary edema or infiltrate. Dictated by: Dictated on workstation # [id number]
[2019-08-14] MEDS: PHENobarbital 97.2 MG (1-1/2 GRAIN) TABLET PO SCH (08:31)
[2019-08-14] MEDS: LEVETIRACETAM INJECTION 500 MG in NS (IVPB) 100 ML IV SCH (08:31)
[2019-08-14] MEDS: meTOprolol SUCCINATE 100 MG (TOPROL XL) TAB PO SCH (08:31)
[2019-08-14] MEDS: hydrALAZINE (APRESOLINE) 25 MG TAB PO SCH ×2 (08:32→12:53)
[2019-08-14] MEDS: cloNIDine 0.2 MG (CATAPRES) TAB PO SCH (08:32)
[2019-08-14] MEDS: OXcarbazepine (TRILEPTAL) 300 MG TAB PO SCH (08:32)
[2019-08-14] MEDS: amLODIPine 10 MG (NORVASC) TAB PO SCH (08:32)
[2019-08-14] MEDS: ENOXAPARIN 40 MG/0.4 ML (LOVENOX) SYR SC SCH (12:52)
--- NOTE | 2019-08-14 13:28 | Progress Note - Hospitalist ---
Subjective HPI/CC On Admission Date Seen by Provider: Aug 14, 2019 Time Seen by Provider: 11:30 Chief complaint, altered mental status with seizure activity History of present illness: This is a 58-year-old white female known to me from multiple hospital stays with a history of severe methamphetamine abuse along with seizure disorder who presented to the ER after calling the ambulance and once paramedics arrived they witnessed seizure activity. Supportive care was initiated in the ER she is placed in the ICU and at this current time she did receive first said so she is sedated and unable to give me any history but they attempted to place PICC line that her vessels are so scarred down from injection drug abuse were unable to obtain IV access. This is an unfortunate situation since she has a lot of organic based medical problems but due to the severity of her drug abuse her prognosis is extremely poor. Subjective/Events-last exam Patient alert this morning Had a seizure this morning Reviewed labs Improved renal function Elevated troponin noted Checked meds and labs Conferred with RN May be able to transfer to fourth floor Very poor prognosis given her severe comorbidities along with noncompliance and illicit drug abuse Review of Systems General: Fatigue Pulmonary: Dyspnea Objective Exam Vital Signs Vital Signs Date Time Temp Pulse Resp B/P (MAP) Pulse Ox O2 Delivery O2 Flow Rate FiO2 08/14/19 13:00 90 30 210/108 (142) 92 Room Air 08/14/19 12:00 37.2 08/14/19 09:00 2.00 Capillary Refill : Less Than 3 Seconds General Appearance: No Apparent Distress, WD/WN, Chronically ill Respiratory: Lungs Clear Cardiovascular: Regular Rate, Rhythm Neurologic/Psychiatric: Alert, Oriented x3, No Motor/Sensory Deficits, Normal Mood/Affect Results/Procedures Lab Laboratory Tests 08/14/19 03:40 Patient resulted labs reviewed. Assessment/Plan Assessment and Plan Assess & Plan/Chief Complaint Assessment: Altered mental status Seizure disorder with seizure this morning History of illicit drug abuse Elevated troponin History of CAD Malignant type hypertension restarted home meds Acute renal failure on chronic renal insufficiency Bipolar disorder Plan: Home meds Transfer to fourth floor Seizure treatment Monitor closely Poor prognosis long-term Diagnosis/Problems Diagnosis/Problems (1) Altered mental status Status: Acute Qualifiers: Altered mental status type: unspecified Qualified Codes: R41.82 - Altered mental status, unspecified (2) Acute renal failure Status: Acute Qualifiers: Acute renal failure type: unspecified Qualified Codes: N17.9 - Acute kidney failure, unspecified (3) Elevated troponin Status: Acute (4) Seizure disorder Status: Acute (5) Hypertensive urgency Status: Acute (6) Drug abuse Status: Acute (7) Dehydration Status: Acute Clinical Quality Measures DVT/VTE Risk/Contraindication: Risk Factor Score Per Nursin RFS Level Per Nursing on Admit: 4+=Very High RAJAN VALDOVINOS DO Aug 14, 2019 13:27 POS
[2019-08-14] MEDS: hydrALAZINE (APESOLINE) 20 MG/ML VIAL IV PRN ×2 (16:27→20:49)
[2019-08-14] MEDS ORDERED: HYDROmorphone 2 MG/ML VIAL (DILAUDID) ONE (20:28)
[2019-08-14] MEDS ORDERED: HYDROmorphone 2 MG/ML VIAL (DILAUDID) IV ONE (20:45)
--- NOTE | 2019-08-14 20:50 | NUR ---
AT APPROX. 2000 PATIENT BEGAN YELLING AND CRYING OUT IN PAIN AND WAS TEARFUL. PATIENT WAS TACHYCARDIC AND HYPERVENTILATING, BP WAS ELEVATED BUT HAD BEEN THROUGH-OUT THE DAY. ONCE THIS PATIENT WAS CALMED DOWN ENOUGH I WAS ABLE TO ASSESS HER PAIN- SHE POINTED AT HER RLQ ABDOMEN TO WHERE THE PAIN WAS. BLANE ZHANG'D IN TO ROOM- NEW ORDERS RECEIVED AT THIS TIME.
[2019-08-14] MEDS ORDERED: hydrALAZINE (APESOLINE) 20 MG/ML VIAL IV ONE (22:30)
--- NOTE | 2019-08-14 23:00 | NUR ---
HYDRALAZINE 20 MG DOCUMENTED UNDER HYDRALAZINE 10 MG - ORDER RECEIVED ONE-TIME ADMINISTRATION FROM E-ICU BUT WAS NOT IN THE COMPUTER YET.
[2019-08-15] VITALS (18 sets, daily range): BP systolic 135–212; BP diastolic 77–118
[2019-08-15 00:13] LABS: BASOPHILS % (AUTO) 0 % (0-10); EOSINOPHILS # (AUTO) 0.2 10^3/uL (0.0-0.3); EOSINOPHILS % (AUTO) 2 % (0-10); HEMATOCRIT 26 % (35-52); HEMOGLOBIN 8.4 G/DL (11.5-16.0); LYMPHOCYTES # (AUTO) 1.3 X 10^3 (1.0-4.0); LYMPHOCYTES % (AUTO) 20 % (12-44); MEAN CORPUSCULAR HEMOGLOBIN 29 PG (25-34); MEAN CORPUSCULAR HGB CONC 32 G/DL (32-36); MEAN CORPUSCULAR VOLUME 91 FL (80-99); MEAN PLATELET VOLUME 10.4 FL (7.4-10.4); MONOCYTES # (AUTO) 0.4 X 10^3 (0.0-1.0); MONOCYTES % (AUTO) 5 % (0-12); NEUTROPHILS # (AUTO) 4.9 X 10^3 (1.8-7.8); NEUTROPHILS % (AUTO) 73 % (42-75); PLATELET COUNT 59 10^3/uL (130-400); RED CELL DISTRIBUTION WIDTH 14.6 % (10.0-14.5); WHITE BLOOD COUNT 6.8 10^3/uL (4.3-11.0)
[2019-08-15 00:35] LABS: ALBUMIN 3.9 GM/DL (3.2-4.5); BILIRUBIN,TOTAL 0.3 MG/DL (0.1-1.0); CALCIUM 8.8 MG/DL (8.5-10.1); CREATININE SERUM 1.22 MG/DL (0.60-1.30); MAGNESIUM 1.7 MG/DL (1.6-2.4); POTASSIUM 4.5 MMOL/L (3.6-5.0); TOTAL PROTEIN 6.9 GM/DL (6.4-8.2)
[2019-08-15] MEDS: ACETAMINOPHEN 325 MG TABLET PO PRN ×3 (01:00→13:22)
[2019-08-15] MEDS: FAMOTIDINE 20 MG (PEPCID) TABLET PO SCH ×2 (01:00→21:13)
[2019-08-15] MEDS: cloNIDine 0.2 MG (CATAPRES) TAB PO SCH ×3 (01:00→21:13)
[2019-08-15] MEDS: OXcarbazepine (TRILEPTAL) 300 MG TAB PO SCH ×3 (01:00→21:13)
[2019-08-15] MEDS: hydrALAZINE (APRESOLINE) 25 MG TAB PO SCH ×4 (01:00→21:13)
[2019-08-15] MEDS: LEVETIRACETAM INJECTION 500 MG in NS (IVPB) 100 ML IV SCH ×3 (01:01→21:12)
[2019-08-15] MEDS: PRAZOSIN 1 MG CAPSULE (MINIPRESS) NON-FORMULARY PO SCH ×2 (01:02→21:13)
[2019-08-15] MEDS: inSUlin ASPART (NovoLOG) 1 UNIT/0.01 ML (CHARGE PER UNIT) SQ SCH ×5 (01:09→21:21)
[2019-08-15 01:29] LABS: BILIRUBIN,URINE NEGATIVE (NEGATIVE); CLARITY,URINE CLEAR; COLOR,URINE YELLOW; GLUCOSE, URINE (UA) 1+ (NEGATIVE); KETONES,URINE NEGATIVE (NEGATIVE); LEUKOCYTE ESTERASE ,URINE 1+ (NEGATIVE); NITRITE,URINE NEGATIVE (NEGATIVE); PH,URINE 7 (5-9); PROTEIN,URINE 3+ (NEGATIVE)
[2019-08-15 01:43] LABS: BACTERIA,URINE FEW /HPF; RBC,URINE 0-2 /HPF; SQUAMOUS EPITHELIAL CELL,UR 0-2 /HPF; WBC,URINE 0-2 /HPF
[2019-08-15] MEDS: LACTATED RINGERS 1,000 ML IV SCH ×2 (03:11→22:15)
[2019-08-15 03:43] LABS: BASOPHILS % (AUTO) 0 % (0-10); EOSINOPHILS # (AUTO) 0.1 10^3/uL (0.0-0.3); EOSINOPHILS % (AUTO) 1 % (0-10); HEMATOCRIT 31 % (35-52); HEMOGLOBIN 9.8 G/DL (11.5-16.0); LYMPHOCYTES # (AUTO) 1.5 X 10^3 (1.0-4.0); LYMPHOCYTES % (AUTO) 20 % (12-44); MEAN CORPUSCULAR HEMOGLOBIN 29 PG (25-34); MEAN CORPUSCULAR HGB CONC 32 G/DL (32-36); MEAN CORPUSCULAR VOLUME 91 FL (80-99); MEAN PLATELET VOLUME 10.2 FL (7.4-10.4); MONOCYTES # (AUTO) 0.5 X 10^3 (0.0-1.0); MONOCYTES % (AUTO) 6 % (0-12); NEUTROPHILS # (AUTO) 5.4 X 10^3 (1.8-7.8); NEUTROPHILS % (AUTO) 72 % (42-75); PLATELET COUNT 250 10^3/uL (130-400); RED CELL DISTRIBUTION WIDTH 14.8 % (10.0-14.5); WHITE BLOOD COUNT 7.5 10^3/uL (4.3-11.0)
[2019-08-15 03:59] LABS: CALCIUM 8.7 MG/DL (8.5-10.1); CREATININE SERUM 1.18 MG/DL (0.60-1.30); MAGNESIUM 1.6 MG/DL (1.6-2.4); PHOSPHORUS 3.7 MG/DL (2.3-4.7); POTASSIUM 4.6 MMOL/L (3.6-5.0)
[2019-08-15] MEDS: MAGNESIUM 1 GM/100 ML IVPB 100 ML IV SCH ×3 (04:24→06:13)
[2019-08-15] MEDS: POTASSIUM CL 10MEQ/50ML IVPB 50 ML IV SCH (04:24)
[2019-08-15] MEDS: KCL 20 MEQ TAB (K-DUR) PO SCH (04:24)
--- NOTE | 2019-08-15 05:34 | Pulmonary Progress Note ---
Subjective Time Seen by a Provider: 11:36 Subjective/Events-last exam PT feels improved. Sepsis Event Evaluation Height, Weight, BMI Height: 5'3.00" Weight: 155lbs. 8.0oz. 70.667662gf; 24.00 BMI Method:Stated Focused Exam Lactate Level 08/14/19 23:59: Lactic Acid Level 0.84 Exam Exam Vital Signs Date Time Temp Pulse Resp B/P (MAP) Pulse Ox O2 Delivery O2 Flow Rate FiO2 08/15/19 05:00 81 20 189/94 (125) 96 Nasal Cannula 2.00 08/15/19 04:00 92 OxyMask 2.00 08/15/19 04:00 77 19 171/86 (114) 95 Nasal Cannula 2.00 08/15/19 02:00 81 20 174/100 (124) 97 Nasal Cannula 2.00 08/15/19 01:00 96 08/15/19 01:00 94 20 180/91 (120) 97 Nasal Cannula 2.00 08/15/19 00:00 97 OxyMask 2.00 08/14/19 22:00 96 18 161/93 (115) 100 Nasal Cannula 2.00 08/14/19 21:00 100 18 184/86 (118) 97 Nasal Cannula 2.00 08/14/19 20:00 95 Nasal Cannula 2.00 08/14/19 20:00 105 24 207/105 (139) Nasal Cannula 2.00 08/14/19 19:00 105 08/14/19 19:00 105 21 188/124 (145) Nasal Cannula 2.00 08/14/19 18:00 103 34 214/113 (146) Room Air 08/14/19 17:00 105 29 185/96 (125) 91 Room Air 08/14/19 16:00 98 Room Air 08/14/19 16:00 98 29 186/110 (135) 93 Room Air 08/14/19 15:00 93 32 179/104 (129) 94 Room Air 08/14/19 14:00 93 28 196/108 (137) 93 Room Air 08/14/19 13:00 90 30 210/108 (142) 92 Room Air 08/14/19 12:36 98 Room Air 08/14/19 12:15 87 08/14/19 12:00 37.2 08/14/19 12:00 90 31 218/102 (140) 92 Room Air 08/14/19 11:00 95 18 244/119 (160) 97 Room Air 08/14/19 10:00 96 30 214/122 (152) 95 Room Air 08/14/19 09:00 102 27 188/83 (118) 92 Nasal Cannula 2.00 08/14/19 08:25 98 Room Air 08/14/19 08:00 103 17 182/113 (136) 90 Nasal Cannula 2.00 08/14/19 07:00 96 27 220/115 (150) 92 Nasal Cannula 2.00 08/14/19 07:00 98 08/14/19 06:00 90 22 220/103 (142) 99 Nasal Cannula 2.00 I & O 08/15/19 07:00 Intake Total 2800 ml Output Total 4880 ml Balance -2080 ml Height & Weight Height: 5'3.00" Weight: 155lbs. 8.0oz. 70.403889rz; 24.00 BMI Method:Stated General Appearance: No Apparent Distress, WD/WN, Chronically ill HEENT: PERRL/EOMI Neck: Full Range of Motion, Supple Respiratory: Lungs Clear Cardiovascular: Regular Rate, Rhythm Capillary Refill: Less Than 3 Seconds Peripheral Pulses: 2+ Radial Pulses (R), 2+ Radial Pulses (L) Gastrointestinal: non tender, soft Extremity: Normal Capillary Refill, Non Tender Neurologic/Psychiatric: Alert, Oriented x3, No Motor/Sensory Deficits, Normal Mood/Affect Skin: Normal Color, Warm/Dry Lymphatic: No Adenopathy Results Lab Laboratory Tests 08/14/19 03:40 08/14/19 23:59 08/15/19 03:34 Assessment/Plan Assessment/Plan Seizure disorder -Keppra -Restart home meds Bipolar - home meds Hyperkalemia -Give 2 amps bicarb and kayexalate HTN -Restart home meds Acute renal failure -IVF -Monitor Acute dehydration -IVF elevated troponin RICARDA COVINGTON DO Aug 15, 2019 05:34 POS
[2019-08-15] MEDS ORDERED: BISACODYL 10 MG SUPP (DULCOLAX) PR PRN (05:45)
[2019-08-15] MEDS ORDERED: LACTULOSE SYRUP 10GM/15ML (ENULOSE) 30ML UDC PO PRN (05:45)
[2019-08-15] MEDS: PHENobarbital 97.2 MG (1-1/2 GRAIN) TABLET PO SCH (07:45)
[2019-08-15] MEDS: DOCUSATE SODIUM 100 MG (COLACE) CAP PO SCH ×2 (07:45→21:13)
[2019-08-15] MEDS: meTOprolol SUCCINATE 100 MG (TOPROL XL) TAB PO SCH (07:45)
[2019-08-15] MEDS: PANTOPRAZOLE 40 MG (PROTONIX) TAB PO SCH (07:45)
[2019-08-15] MEDS: amLODIPine 10 MG (NORVASC) TAB PO SCH (07:45)
--- NOTE | 2019-08-15 07:52 | Diagnostic Imaging Report ---
PROCEDURE: CT abdomen and pelvis without contrast. TECHNIQUE: Multiple contiguous axial images were obtained through the abdomen and pelvis without the use of intravenous contrast. Auto Exposure Controls were utilized during the CT exam to meet ALARA standards for radiation dose reduction. INDICATION: Possible cholecystitis EXAMINATION: CT abdomen and pelvis without contrast 08/15/2019 COMPARISON: 07/02/2019 FINDINGS: Bilateral pleural effusions partially visualized in the visualized lung bases with adjacent dependent atelectasis. Nonopacified abdominal viscera limited but no gross abnormality appreciated in the liver, spleen, and adrenal glands. Gallbladder somewhat distended. No calcified gallstones appreciated. There may be a small amount of sludge present. No adjacent fluid or inflammation appreciated. No biliary dilatation. Within the pancreas, no definitive abnormality seen although the region of the pancreatic head demonstrates a possible cystic lesion or a slightly distended duct; this is better characterized with postcontrast imaging non-emergently. No ascites or lymphadenopathy appreciated. The right kidney is atrophied. Left kidney partially atrophied perhaps due to chronic infectious etiology. Small underlying lesions are not excluded without contrast. There are findings of constipation. Cystic changes in the right pelvis likely ovarian cysts. Ashford catheter in the urinary bladder. No free fluid in the pelvis. Mild fat stranding within the soft tissues could be due to mild anasarca. Diffuse degenerative and chronic findings seen in the osseous structures. A nonspecific lucent lesion in the proximal left femur is seen and incompletely imaged. IMPRESSION: 1. Bilateral pleural effusions and adjacent atelectasis 2. Possible sludge and somewhat distended gallbladder which is otherwise unremarkable. Ultrasound or HIDA scan could provide further characterization as clinically indicated. 3. Lesion in the left proximal femur not mentioned in the [facility] report but nonemergent. Further evaluation with further workup of the area recommended. 4. Lobular appearing kidneys with an atrophied right kidney. This requires follow-up as well non-emergently. 5. Possible ductal dilatation versus cystic lesion pancreatic head not mentioned by [facility] but nonemergent, follow-up of this process recommended. Other findings as above. Dictated by: Dictated on workstation # [id number]
--- NOTE | 2019-08-15 08:05 | Diagnostic Imaging Report ---
INDICATION: Shortness of breath. COMPARISON: 08/14/2019 Single view chest demonstrates stable cardiac enlargement. The lungs remain well aerated. There is no pneumothorax or effusion. Osseous structures are stable. IMPRESSION: Stable cardiac enlargement without pulmonary edema or infiltrate. Dictated by: Dictated on workstation # [id number]
[2019-08-15] MEDS: ENOXAPARIN 40 MG/0.4 ML (LOVENOX) SYR SC SCH (11:54)
--- NOTE | 2019-08-15 14:00 | Progress Note - Hospitalist ---
Subjective HPI/CC On Admission Date Seen by Provider: Aug 15, 2019 Time Seen by Provider: 12:15 Chief complaint, altered mental status with seizure activity History of present illness: This is a 58-year-old white female known to me from multiple hospital stays with a history of severe methamphetamine abuse along with seizure disorder who presented to the ER after calling the ambulance and once paramedics arrived they witnessed seizure activity. Supportive care was initiated in the ER she is placed in the ICU and at this current time she did receive first said so she is sedated and unable to give me any history but they attempted to place PICC line that her vessels are so scarred down from injection drug abuse were unable to obtain IV access. This is an unfortunate situation since she has a lot of organic based medical problems but due to the severity of her drug abuse her prognosis is extremely poor. Subjective/Events-last exam Patient doing pretty well Malignant hypertension noted We will discontinue catheter We will get her out of bed Overall feels much better Review of Systems General: Fatigue Focused Exam Lactate Level 08/14/19 23:59: Lactic Acid Level 0.84 Objective Exam Vital Signs Vital Signs Date Time Temp Pulse Resp B/P (MAP) Pulse Ox O2 Delivery O2 Flow Rate FiO2 08/15/19 16:00 94 25 173/98 (123) 92 Nasal Cannula 2.00 08/15/19 12:00 36.3 Capillary Refill : Less Than 3 Seconds General Appearance: No Apparent Distress, WD/WN, Chronically ill Respiratory: Chest Non Tender, Lungs Clear, Normal Breath Sounds, No Accessory Muscle Use, No Respiratory Distress Cardiovascular: Regular Rate, Rhythm, No Edema, No Gallop, No JVD, No Murmur, Normal Peripheral Pulses Neurologic/Psychiatric: Alert, Oriented x3, No Motor/Sensory Deficits, Normal Mood/Affect Results/Procedures Lab Laboratory Tests 08/14/19 23:59 08/15/19 03:34 Patient resulted labs reviewed. Assessment/Plan Assessment and Plan Assess & Plan/Chief Complaint Assessment: Altered mental status Seizure disorder with seizure this morning History of illicit drug abuse Elevated troponin History of CAD Malignant type hypertension restarted home meds Acute renal failure on chronic renal insufficiency Bipolar disorder Plan: Home meds Transfer to fourth floor Seizure treatment Monitor closely Poor prognosis long-term Diagnosis/Problems Diagnosis/Problems (1) Altered mental status Status: Acute Qualifiers: Altered mental status type: unspecified Qualified Codes: R41.82 - Altered mental status, unspecified (2) Acute renal failure Status: Acute Qualifiers: Acute renal failure type: unspecified Qualified Codes: N17.9 - Acute kidney failure, unspecified (3) Elevated troponin Status: Acute (4) Seizure disorder Status: Acute (5) Hypertensive urgency Status: Acute (6) Drug abuse Status: Acute (7) Dehydration Status: Acute Clinical Quality Measures DVT/VTE Risk/Contraindication: Risk Factor Score Per Nursin RFS Level Per Nursing on Admit: 4+=Very High RAJAN VALDOVINOS DO Aug 15, 2019 14:00 POS
--- NOTE | 2019-08-15 20:00 | NUR ---
This RN to room, pt upset, crying, rocking back and forth in chair, stating she was told she could go to 4th floor and have Ashford removed. This RN removed Ashford, therapeutic communication attempted, Dr Patel notified, updated on pt condition, orders received.
[2019-08-15] MEDS ORDERED: cloNIDine 0.2 MG (CATAPRES) TAB PO PRN (21:30)
--- NOTE | 2019-08-15 22:00 | NUR ---
PT TRANSFERRED FROM ICU AT THIS TIME. SEE ASSESSMENT.
[2019-08-16] VITALS (7 sets, daily range): BP systolic 122–174; BP diastolic 61–107
[2019-08-16] MEDS: inSUlin ASPART (NovoLOG) 1 UNIT/0.01 ML (CHARGE PER UNIT) SQ SCH ×4 (06:12→21:32)
[2019-08-16 06:19] LABS: CALCIUM 8.7 MG/DL (8.5-10.1); CREATININE SERUM 1.21 MG/DL (0.60-1.30); MAGNESIUM 1.8 MG/DL (1.6-2.4); PHOSPHORUS 3.6 MG/DL (2.3-4.7); POTASSIUM 4.9 MMOL/L (3.6-5.0)
[2019-08-16 06:35] LABS: BASOPHILS % (AUTO) 0 % (0-10); EOSINOPHILS # (AUTO) 0.2 10^3/uL (0.0-0.3); EOSINOPHILS % (AUTO) 2 % (0-10); HEMATOCRIT 30 % (35-52); HEMOGLOBIN 9.8 G/DL (11.5-16.0); LYMPHOCYTES # (AUTO) 1.7 X 10^3 (1.0-4.0); LYMPHOCYTES % (AUTO) 22 % (12-44); MEAN CORPUSCULAR HEMOGLOBIN 29 PG (25-34); MEAN CORPUSCULAR HGB CONC 33 G/DL (32-36); MEAN CORPUSCULAR VOLUME 89 FL (80-99); MEAN PLATELET VOLUME 10.7 FL (7.4-10.4); MONOCYTES # (AUTO) 0.4 X 10^3 (0.0-1.0); MONOCYTES % (AUTO) 6 % (0-12); NEUTROPHILS # (AUTO) 5.5 X 10^3 (1.8-7.8); NEUTROPHILS % (AUTO) 70 % (42-75); PLATELET COUNT 238 10^3/uL (130-400); RED CELL DISTRIBUTION WIDTH 14.1 % (10.0-14.5); WHITE BLOOD COUNT 7.9 10^3/uL (4.3-11.0)
[2019-08-16] MEDS: ACETAMINOPHEN 325 MG TABLET PO PRN ×2 (06:41→18:15)
[2019-08-16] MEDS ORDERED: FUROSEMIDE 40 MG/4 ML INJ (LASIX) IVP ONE (06:45)
--- NOTE | 2019-08-16 06:50 | NUR ---
0650-- PATIENT BEGAN SEIZING NURSE AT BEDSIDE 0653-- SEIZURE ENDED. PT RESPONDED TO THIS RN. NO POSTICTAL STATE. DR COVINGTON NOTIFIED-NO NEW ORDERS.
--- NOTE | 2019-08-16 06:55 | Pulmonary Progress Note ---
Subjective Time Seen by a Provider: 11:35 Subjective/Events-last exam RN reports pt had another seizure this AM that only lasted a few min. SOB is stable Sepsis Event Evaluation Height, Weight, BMI Height: 5'3.00" Weight: 155lbs. 8.0oz. 70.463159mb; 24.00 BMI Method:Stated Focused Exam Lactate Level 08/14/19 23:59: Lactic Acid Level 0.84 Exam Exam Vital Signs Date Time Temp Pulse Resp B/P (MAP) Pulse Ox O2 Delivery O2 Flow Rate FiO2 08/16/19 04:21 37.4 99 18 169/86 (113) 94 Nasal Cannula 2.00 08/16/19 01:00 91 08/16/19 00:30 37.4 91 18 165/87 (113) 93 Nasal Cannula 3.00 08/15/19 22:04 88 Room Air 08/15/19 22:00 Nasal Cannula 3.00 08/15/19 21:45 38.1 97 18 177/100 (125) 96 Nasal Cannula 3.00 08/15/19 20:15 152/89 (110) Room Air 08/15/19 20:00 37.5 08/15/19 19:00 101 08/15/19 19:00 101 17 184/91 (122) 92 Room Air 08/15/19 18:50 Nasal Cannula 2.00 08/15/19 18:00 101 32 212/113 (146) Nasal Cannula 2.00 08/15/19 17:00 101 29 189/118 (141) 92 Nasal Cannula 2.00 08/15/19 16:00 94 25 173/98 (123) 92 Nasal Cannula 2.00 08/15/19 16:00 37.0 08/15/19 16:00 Room Air 08/15/19 15:00 90 24 177/94 (121) Nasal Cannula 2.00 08/15/19 14:00 99 28 176/86 (116) Nasal Cannula 2.00 08/15/19 13:00 101 26 177/94 (121) 91 Nasal Cannula 2.00 08/15/19 12:25 93 08/15/19 12:00 93 20 96 Nasal Cannula 2.00 08/15/19 12:00 Room Air 08/15/19 12:00 36.3 08/15/19 11:00 82 25 152/78 (102) 94 Nasal Cannula 2.00 08/15/19 10:00 92 22 168/88 (114) 95 Nasal Cannula 2.00 08/15/19 09:00 89 31 135/77 (96) 98 Nasal Cannula 2.00 08/15/19 08:00 96 11 94 Nasal Cannula 2.00 08/15/19 08:00 36.8 08/15/19 08:00 Room Air 08/15/19 07:00 81 13 193/91 (125) 93 Nasal Cannula 2.00 08/15/19 07:00 84 I & O 08/16/19 07:00 Intake Total 1640 ml Output Total 2550 ml Balance -910 ml Height & Weight Height: 5'3.00" Weight: 155lbs. 8.0oz. 70.081951hh; 24.00 BMI Method:Stated General Appearance: No Apparent Distress, WD/WN, Chronically ill HEENT: PERRL/EOMI Neck: Full Range of Motion, Supple Respiratory: Chest Non Tender, Lungs Clear, Normal Breath Sounds, No Accessory Muscle Use, No Respiratory Distress Cardiovascular: Regular Rate, Rhythm, No Edema, No Gallop, No JVD, No Murmur, Normal Peripheral Pulses Capillary Refill: Less Than 3 Seconds Peripheral Pulses: 2+ Radial Pulses (R), 2+ Radial Pulses (L) Gastrointestinal: non tender, soft Extremity: Normal Capillary Refill, Non Tender Neurologic/Psychiatric: Alert, Oriented x3, No Motor/Sensory Deficits, Normal Mood/Affect Skin: Normal Color, Warm/Dry Lymphatic: No Adenopathy Results Lab Laboratory Tests 08/14/19 23:59 08/15/19 03:34 08/16/19 05:35 08/16/19 06:20 Assessment/Plan Assessment/Plan Seizure disorder -Keppra -Restart home meds Bipolar - home meds Bilateral small pleural effusions R>L -Too small for thoracentesis -Check BNP and Give 60mg of lasix x1 -check echo HTN -Restart home meds Acute renal failure -IVF -Monitor Acute dehydration -IVF elevated troponin RICARDA COVINGTON DO Aug 16, 2019 06:55 POS
--- NOTE | 2019-08-16 07:41 | NUR ---
DR. VALDOVINOS NOTIFIED NO NEW ORDERS.
[2019-08-16] MEDS: hydrALAZINE (APRESOLINE) 25 MG TAB PO SCH ×3 (07:55→21:15)
[2019-08-16] MEDS: OXcarbazepine (TRILEPTAL) 300 MG TAB PO SCH ×2 (07:56→21:15)
[2019-08-16] MEDS: DOCUSATE SODIUM 100 MG (COLACE) CAP PO SCH ×2 (07:56→21:15)
[2019-08-16] MEDS: cloNIDine 0.2 MG (CATAPRES) TAB PO SCH ×2 (07:56→21:15)
[2019-08-16] MEDS: meTOprolol SUCCINATE 100 MG (TOPROL XL) TAB PO SCH (07:56)
[2019-08-16] MEDS: LEVETIRACETAM INJECTION 500 MG in NS (IVPB) 100 ML IV SCH ×2 (07:57→21:17)
[2019-08-16] MEDS: amLODIPine 10 MG (NORVASC) TAB PO SCH (07:57)
[2019-08-16] MEDS: PHENobarbital 97.2 MG (1-1/2 GRAIN) TABLET PO SCH (07:57)
[2019-08-16] MEDS: PANTOPRAZOLE 40 MG (PROTONIX) TAB PO SCH (07:57)
--- NOTE | 2019-08-16 10:30 | Progress Note - Hospitalist ---
Subjective HPI/CC On Admission Date Seen by Provider: Aug 16, 2019 Time Seen by Provider: 09:00 Chief complaint, altered mental status with seizure activity History of present illness: This is a 58-year-old white female known to me from multiple hospital stays with a history of severe methamphetamine abuse along with seizure disorder who presented to the ER after calling the ambulance and once paramedics arrived they witnessed seizure activity. Supportive care was initiated in the ER she is placed in the ICU and at this current time she did receive first said so she is sedated and unable to give me any history but they attempted to place PICC line that her vessels are so scarred down from injection drug abuse were unable to obtain IV access. This is an unfortunate situation since she has a lot of organic based medical problems but due to the severity of her drug abuse her prognosis is extremely poor. Subjective/Events-last exam Pt doing pretty well Had a seizure today Labs returning back to normal creatinine 1.2 Getting a shower currently Very poor prognosis, unable to modify anything to decrease the risk of readmission since she has such severe comorbidities compiled with illicit drug abuse and noncompliance Review of Systems General: Fatigue Focused Exam Lactate Level 08/14/19 23:59: Lactic Acid Level 0.84 Objective Exam Vital Signs Vital Signs Date Time Temp Pulse Resp B/P (MAP) Pulse Ox O2 Delivery O2 Flow Rate FiO2 08/16/19 19:34 36.4 70 18 151/61 (91) 97 Room Air 08/16/19 16:00 2.00 Capillary Refill : Less Than 3 Seconds General Appearance: No Apparent Distress, WD/WN, Chronically ill Respiratory: Lungs Clear Cardiovascular: Regular Rate, Rhythm Neurologic/Psychiatric: Alert, Oriented x3, No Motor/Sensory Deficits, Normal Mood/Affect Results/Procedures Lab Laboratory Tests 08/16/19 05:35 08/16/19 06:20 Patient resulted labs reviewed. Assessment/Plan Assessment and Plan Assess & Plan/Chief Complaint Assessment: Altered mental status Seizure disorder with seizure this morning History of illicit drug abuse Elevated troponin History of CAD Malignant type hypertension restarted home meds Acute renal failure on chronic renal insufficiency Bipolar disorder Plan: Home meds Transfer to fourth floor Seizure treatment Monitor closely Poor prognosis long-term Diagnosis/Problems Diagnosis/Problems (1) Altered mental status Status: Acute Qualifiers: Altered mental status type: unspecified Qualified Codes: R41.82 - Altered mental status, unspecified (2) Acute renal failure Status: Acute Qualifiers: Acute renal failure type: unspecified Qualified Codes: N17.9 - Acute kidney failure, unspecified (3) Elevated troponin Status: Acute (4) Seizure disorder Status: Acute (5) Hypertensive urgency Status: Acute (6) Drug abuse Status: Acute (7) Dehydration Status: Acute Clinical Quality Measures DVT/VTE Risk/Contraindication: Risk Factor Score Per Nursin RFS Level Per Nursing on Admit: 4+=Very High RAJAN VALDOVINOS DO Aug 16, 2019 10:30 POS
[2019-08-16] MEDS: ENOXAPARIN 40 MG/0.4 ML (LOVENOX) SYR SC SCH (13:30)
--- NOTE | 2019-08-16 16:23 | Consultation-Cardiology ---
HPI-Cardiology Cardiology Consultation: Date of Consultation 08/16/19 Date of Admission Attending Physician Coco Arriaga MD Admitting Physician [place] Consulting Physician Paolo JENKINS MD HPI: Time Seen by a Provider: 11:00 This is a 58-year-old lady who is well-known to me. She presents with seizure- like activity. Drug abuse with methamphetamines. No chest pain or shortness of breath. Review of Systems-Cardiology Review of Systems Constitutional: As described under HPI; No As described under HPI, No no symptoms reported, No chills, No fever, No lightheadedness Eyes: No As described under HPI, No no symptoms reported, No blindness, No b lurred vision, No contact lenses, No drainage, No decreased acuity, No foreign body sensation, No pain, No vision change Ears/Nose/Throat: No As described under HPI, No no symptoms reported, No chronic hearing loss, No ear discharge, No ear pain, No nasal drainage, No ulcerations Respiratory: No no symptoms reported; As described under HPI; No As described under HPI, No cough, No orthopnea, No shortness of breath, No SOB with excertion Cardiovascular: No no symptoms reported; As described under HPI; No As described under HPI, No chest pain, No edema, No irregular heart rate, No lightheadedness, No palpitations Gastrointestinal: No no symptoms reported, No As described under HPI, No abdomen distended, No abdominal pain, No blood streaked bowels, No constipation, No diarrhea, No nausea, No vomiting, No stool coloration changes Genitourinary: No As described under HPI, No burning, No dysuria, No discharge, No frequency, No flank pain, No hematuria, No urgency : Yes : No Skin: No rash, No skin related problems, No ulcerations Psychiatric/Neurological: As described under HPI; No anxiety, No depression, No seizure, No focal weakness, No syncope Hematologic: No bleeding abnormalities [id number] Hx Patient Social History Marrital Status: single Employed/Student: unemployed Alcohol Use: Denies Use Recreational Drug Use: Yes Drug of Choice: HX OF IV METH USE Smoking Status: Current Everyday Smoker Former smoker/When Quit: Oct 13, 2007 Type Used: Cigarettes 2nd Hand Smoke Exposure: Yes Recent Foreign Travel: No Recent Infectious Disease Expo: No Hospitalization with Isolation: Denies Immunizations Up To Date Tetanus Booster (TDap): Less than 5yrs Date of Pneumonia Vaccine: Jul 13, 2012 Date of Influenza Vaccine: Jul 28, 2018 Past Medical History PMH As described under Assessment. Family Medical History Family History: Abdominal aortic aneurysm 03 FATHER Alcoholism 03 FATHER 03 MOTHER 09 SISTER 09 SISTER Cancer 03 FATHER Cataract 03 FATHER 03 MOTHER Chest pain 03 MOTHER Family history: Diabetes mellitus 03 MOTHER Family history: Hypertension 03 MOTHER Family history: Thyroid disorder 03 MOTHER Headache 09 SISTER Heart disease 03 MOTHER History of drug abuse 03 FATHER 09 SISTER Myocardial infarction 03 MOTHER No Family History of: Isael's disease Aphasia Cancer of colon Congenital heart disease Congestive heart failure Cystic fibrosis Dementia Dysphagia Family history: Allergy Family history: Alzheimer's disease Family history: Arthritis Family history: Asthma Family history: Breast disease Family history: Cardiovascular disease Family history: Coronary thrombosis Family history: Gastrointestinal disease Family history: Glaucoma Family history: Osteoporosis Hearing loss Hereditary disease History of - anemia History of - disorder History of - respiratory disease Human immunodeficiency virus (HIV) seropositivity Hypercholesterolemia Infertile Kidney disease Malignant neoplasm of lung Parkinson's disease Prostate cancer Psychotic disorder Seizure disorder Stroke Tuberculosis Visual impairment Allergies and Home Medications Allergies Coded Allergies: nitrous oxide (Verified Allergy, Unknown, 06/08/07) Home Medications Acetaminophen 500 Mg Tablet, 1,000 MG PO Q6H PRN for PAIN-MILD, (Reported) Amlodipine Besylate 10 Mg Tablet, 10 MG PO DAILY, (Reported) Aspirin 81 Mg Tab.chew, 81 MG PO DAILY, (Reported) Clonidine HCl 0.2 Mg Tablet, 0.4 MG PO BID Prescribed by: RAJAN VALDOVINOS on 08/17/19920 Hydralazine HCl 50 Mg Tablet, 50 MG PO TID, (Reported) Hydroxyzine HCl 25 Mg Tablet, 25 MG PO TID PRN for ANXIETY, (Reported) Levetiracetam 500 Mg Tablet, 500 MG PO BID Prescribed by: RAJAN VALDOVINOS on 08/17/19920 Metoprolol Succinate 100 Mg Tab.er.24h, 100 MG PO DAILY, (Reported) Oxcarbazepine 600 Mg Tablet, 600 MG PO BID, (Reported) Phenobarbital 97.2 Mg Tablet, 97.2 MG PO DAILY, (Reported) Prazosin HCl 1 Mg Capsule, 1 MG PO HS, (Reported) Ranitidine HCl 150 Mg Tablet, 150 MG PO HS, (Reported) Spironolactone 25 Mg Tablet, 25 MG PO DAILY, (Reported) Patient Home Medication List Home Medication List Reviewed: Yes Physical Exam-Cardiology Physical Exam Vital Signs/I&O 08/17/19 08/17/19 12:00 13:00 Temp 36.3 36.3 Pulse 88 88 Resp 16 16 B/P (MAP) 121/62 (81) 121/62 Pulse Ox 93 93 O2 Delivery Room Air Room Air 08/17/19 00:00 Intake Total 1590 ml Balance 1590 ml Capillary Refill : Less Than 3 SecondsLess Than 3 Seconds Constitutional: appears stated age; No apparent distress; well-developed, well- nourished HEENT: PERRL; No discharge; hearing is well preserved, oral hygience is good; No ulceration, No xanthelasmas are seen Neck: No carotid bruit; carotid pulses are 2 + bilaterally Respiratory: chest is bilaterally symmetric, lungs clear to auscultation Cardiovascular: regular rate-rhythm, S1 and S2 Gastrointestinal: soft, audible bowel sounds; No spleenomegaly Rectal: deferred Extremities: normal range of motion, non-tender, normal inspection; No clubbing, No cyanosis; no lower extremity edema bilateral; No significant edema Neurologic/Psychiatric: no motor/sensory deficits, alert, normal mood/affect, oriented x 3, power is 5/5 both on sides Skin: normal color, warm/dry; No rash, No ulcerations Data Review Labs Laboratory Tests 08/16/19 21:20: Glucometer 165H 08/17/19 04:55: White Blood Count 3.6L, Red Blood Count 3.40L, Hemoglobin 9.7L, Hematocrit 30L, Mean Corpuscular Volume 89, Mean Corpuscular Hemoglobin 29, Mean Corpuscular Hemoglobin Concent 32, Red Cell Distribution Width 14.0, Platelet Count 259, Mean Platelet Volume 10.6H, Neutrophils (%) (Auto) 42, Lymphocytes (%) (Auto) 44, Monocytes (%) (Auto) 6, Eosinophils (%) (Auto) 7, Basophils (%) (Auto) 1, Neutrophils # (Auto) 1.5L, Lymphocytes # (Auto) 1.6, Monocytes # (Auto) 0.2, Eosinophils # (Auto) 0.3, Basophils # (Auto) 0.0, Sodium Level 136, Potassium Level 4.4, Chloride Level 101, Carbon Dioxide Level 24, Anion Gap 11, Blood Urea Nitrogen 23H, Creatinine 1.54H, Estimat Glomerular Filtration Rate 35, BUN/Creatinine Ratio 15, Glucose Level 106H, Calcium Level 8.7, Phosphorus Level 3.8, Magnesium Level 1.9 08/17/19 11:11: Glucometer 110 Microbiology 08/12/19 MRSA Screen - Final, Complete MRSA not isolated 08/15/19 Urine Culture - Preliminary, Resulted Klebsiella pneumoniae Enterococcus faecalis A/P-Cardiology Assessment/Admission Diagnosis Generalized tonic-clonic seizure, Hypertension, Positive troponin, Acute kidney injury, Methamphetamine use, LV systolic dysfunction, Plan Generalized tonic-clonic seizure, defer to the primary team. Hypertension, continue outpatient meds. Positive troponin, Previous cath was negative. stress test 06/2019 did not show any myocardial ischemia. Acute kidney injury, Methamphetamine use. LV systolic dysfunction on cath in 2018, however MPI 06/2019 shows EF 50%. Thank you for your consultation. Please call me if you have any questions. Brinda Jenkins MD, FACP, FACC, FSCAI, FHRS, CCDS Interventional Cardiology Cardiac Electrophysiology Vascular Medicine and Endovascular Interventions Clinical Quality Measures DVT/VTE Risk/Contraindication: Risk Factor Score Per Nursin RFS Level Per Nursing on Admit: 4+=Very High Paolo JENKINS MD Aug 16, 2019 16:22 POS
--- NOTE | 2019-08-16 16:39 | NUR ---
Met with pt who I've known for years due to her long standing history of seizures, psychiatric treatment and alcohol and drug abuse with intermittent periods of sobriety. Currently she is living in an apt. in [place], [place] and has [place] medicaid but she stated that her Medicaid was cancelled due to a lack of paperwork. Pt states that it was recently reinstated but will check on that. She has been living in [place] for nearly 3 years. She has attendants that [facility] She is not interested in drug treatment and minimizes her drug use. She plans on returning to her apt. with current caregivers when ;edically stable. Will follow and assist.
[2019-08-16] MEDS: FAMOTIDINE 20 MG (PEPCID) TABLET PO SCH (21:15)
[2019-08-16] MEDS: PRAZOSIN 1 MG CAPSULE (MINIPRESS) NON-FORMULARY PO SCH (21:16)
[2019-08-17 00:25] VITALS: BP 151/77
[2019-08-17 04:00] VITALS: BP 151/82
[2019-08-17 05:12] LABS: BASOPHILS % (AUTO) 1 % (0-10); EOSINOPHILS # (AUTO) 0.3 10^3/uL (0.0-0.3); EOSINOPHILS % (AUTO) 7 % (0-10); HEMATOCRIT 30 % (35-52); HEMOGLOBIN 9.7 G/DL (11.5-16.0); LYMPHOCYTES # (AUTO) 1.6 X 10^3 (1.0-4.0); LYMPHOCYTES % (AUTO) 44 % (12-44); MEAN CORPUSCULAR HEMOGLOBIN 29 PG (25-34); MEAN CORPUSCULAR HGB CONC 32 G/DL (32-36); MEAN CORPUSCULAR VOLUME 89 FL (80-99); MEAN PLATELET VOLUME 10.6 FL (7.4-10.4); MONOCYTES # (AUTO) 0.2 X 10^3 (0.0-1.0); MONOCYTES % (AUTO) 6 % (0-12); NEUTROPHILS # (AUTO) 1.5 X 10^3 (1.8-7.8); NEUTROPHILS % (AUTO) 42 % (42-75); PLATELET COUNT 259 10^3/uL (130-400); WHITE BLOOD COUNT 3.6 10^3/uL (4.3-11.0)
[2019-08-17 05:34] LABS: CALCIUM 8.7 MG/DL (8.5-10.1); CREATININE SERUM 1.54 MG/DL (0.60-1.30); MAGNESIUM 1.9 MG/DL (1.6-2.4); PHOSPHORUS 3.8 MG/DL (2.3-4.7); POTASSIUM 4.4 MMOL/L (3.6-5.0)
[2019-08-17] MEDS: inSUlin ASPART (NovoLOG) 1 UNIT/0.01 ML (CHARGE PER UNIT) SQ SCH (05:37)
--- NOTE | 2019-08-17 07:27 | Pulmonary Progress Note ---
Subjective Date Seen by a Provider: Aug 17, 2019 Time Seen by a Provider: 08:15 Subjective/Events-last exam Patient is a 58 year old female presenting to the ED for seizures. No acute events overnight. Patient resting in bed and reports that she is feeling well. She has not had a seizure today, and her last one was yesterday. Patient endorses shortness of breath on exertion. She denies any fevers, chills, cough, lower extremity edema. Patient expresses interest in having a sleep study performed. Sepsis Event Evaluation Height, Weight, BMI Height: 5'3.00" Weight: 155lbs. 8.0oz. 70.555413ng; 24.00 BMI Method:Stated Focused Exam Lactate Level 08/14/19 23:59: Lactic Acid Level 0.84 Exam Exam Vital Signs Date Time Temp Pulse Resp B/P (MAP) Pulse Ox O2 Delivery O2 Flow Rate FiO2 08/17/19 04:00 36.6 69 19 151/82 (105) 97 Room Air 08/17/19 01:00 70 08/17/19 00:25 36.4 65 18 151/77 (101) 95 Room Air 08/16/19 22:00 Room Air 08/16/19 19:34 36.4 70 18 151/61 (91) 97 Room Air 08/16/19 19:00 73 08/16/19 16:00 Nasal Cannula 2.00 08/16/19 16:00 36.6 67 22 146/92 (110) 98 Nasal Cannula 2.00 08/16/19 13:00 76 08/16/19 12:00 37.0 69 18 125/79 (94) 97 Nasal Cannula 2.00 08/16/19 10:00 37.4 73 20 122/73 (89) 94 Nasal Cannula 2.00 08/16/19 09:00 94 Nasal Cannula 3.00 I & O 08/17/19 07:00 Intake Total 2510 ml Balance 2510 ml Height & Weight Height: 5'3.00" Weight: 155lbs. 8.0oz. 70.511153vd; 24.00 BMI Method:Stated General Appearance: No Apparent Distress, WD/WN, Chronically ill HEENT: PERRL/EOMI Neck: Full Range of Motion, Supple Respiratory: Lungs Clear, No Accessory Muscle Use, No Respiratory Distress Cardiovascular: Regular Rate, Rhythm Capillary Refill: Less Than 3 Seconds Peripheral Pulses: 2+ Radial Pulses (R), 2+ Radial Pulses (L) Gastrointestinal: normal bowel sounds, non tender, soft Extremity: Normal Capillary Refill, Non Tender, No Pedal Edema Neurologic/Psychiatric: Alert, Oriented x3, No Motor/Sensory Deficits, Normal Mood/Affect Skin: Normal Color, Warm/Dry Lymphatic: No Adenopathy Results Lab Laboratory Tests 08/16/19 05:35 08/16/19 06:20 08/17/19 04:55 08/16/19 BNP: 1222.5 Radiology 08/15/19 Chest Xray IMPRESSION: Stable cardiac enlargement without pulmonary edema or infiltrate. Assessment/Plan Assessment/Plan Seizure disorder -Keppra -Oxcarbazepine -Lorazepam PRN to abort seizure Bipolar - home meds Bilateral small pleural effusions R>L -Too small for thoracentesis - BNP 1222.5 -05/2014 Echo: LVEF 40-45%, moderate MR, repeat echo? -Surgical Physician Assistant. bump, received 60 mg Lasix yesterday hold today HTN -Continue home meds Acute renal failure -IVF, monitor fluid status Acute dehydration -IVF elevated troponin RADU BLANK MED STUDENT Aug 17, 2019 07:27 POS
[2019-08-17] MEDS: meTOprolol SUCCINATE 100 MG (TOPROL XL) TAB PO SCH (07:42)
[2019-08-17] MEDS: OXcarbazepine (TRILEPTAL) 300 MG TAB PO SCH (07:42)
[2019-08-17] MEDS: ACETAMINOPHEN 325 MG TABLET PO PRN (07:42)
[2019-08-17] MEDS: PANTOPRAZOLE 40 MG (PROTONIX) TAB PO SCH (07:42)
[2019-08-17] MEDS: DOCUSATE SODIUM 100 MG (COLACE) CAP PO SCH (07:42)
[2019-08-17] MEDS: cloNIDine 0.2 MG (CATAPRES) TAB PO SCH (07:42)
[2019-08-17] MEDS: amLODIPine 10 MG (NORVASC) TAB PO SCH (07:43)
[2019-08-17] MEDS: PHENobarbital 97.2 MG (1-1/2 GRAIN) TABLET PO SCH (07:43)
[2019-08-17] MEDS: hydrALAZINE (APRESOLINE) 25 MG TAB PO SCH (07:43)
[2019-08-17] MEDS: LEVETIRACETAM INJECTION 500 MG in NS (IVPB) 100 ML IV SCH (07:43)
[2019-08-17 08:00] VITALS: BP 159/90
[2019-08-17] MEDS ORDERED: LEVE500T99 PO (09:21)
[2019-08-17] MEDS ORDERED: CLON0.2T PO (09:21)
--- NOTE | 2019-08-17 09:22 | Discharge Summary ---
Discharge Summary Hospital Course Was the Problem List Reviewed?: Yes Problems/Dx: (1) Altered mental status Status: Acute Qualifiers: Qualified Codes: R41.82 - Altered mental status, unspecified (2) Acute renal failure Status: Acute Qualifiers: Qualified Codes: N17.9 - Acute kidney failure, unspecified (3) Elevated troponin Status: Acute (4) Seizure disorder Status: Acute (5) Hypertensive urgency Status: Acute (6) Drug abuse Status: Acute (7) Dehydration Status: Acute Hospital Course Date of Admission: Aug 12, 2019 at 09:48 Admission Diagnosis : Family Physician/Provider: Center[facility] Date of Discharge: 08/17/19 Discharge Diagnosis: AMS, Seizure d/o, ELIJAH, CAD, PVD Hospital Course: Hospital course: Pt was admitted for seizure disorder and altered mental status, cardiology and pulmonology consulted and supportive care was provided, and once she was alert enough, we were able to restart all of her home medications especially the ones for the malignant HTN. Seizures did occur, this is acute on chronic problem, Pt was placed on Keppra in addition to her other home meds and home evaluation of oxygen deemed her in need of oxygen supplementation. She will have close follow-up with [facility] and prognosis is extremely poor manager intermediate. Labs and Pending Lab Test: Laboratory Tests 08/16/19 11:51: Glucometer 85 08/16/19 15:59: Glucometer 103 08/16/19 21:20: Glucometer 165H 08/17/19 04:55: White Blood Count 3.6L, Red Blood Count 3.40L, Hemoglobin 9.7L, Hematocrit 30L, Mean Corpuscular Volume 89, Mean Corpuscular Hemoglobin 29, Mean Corpuscular Hemoglobin Concent 32, Red Cell Distribution Width 14.0, Platelet Count 259, Mean Platelet Volume 10.6H, Neutrophils (%) (Auto) 42, Lymphocytes (%) (Auto) 44, Monocytes (%) (Auto) 6, Eosinophils (%) (Auto) 7, Basophils (%) (Auto) 1, Neutrophils # (Auto) 1.5L, Lymphocytes # (Auto) 1.6, Monocytes # (Auto) 0.2, Eosinophils # (Auto) 0.3, Basophils # (Auto) 0.0, Sodium Level 136, Potassium Level 4.4, Chloride Level 101, Carbon Dioxide Level 24, Anion Gap 11, Blood Urea Nitrogen 23H, Creatinine 1.54H, Estimat Glomerular Filtration Rate 35, BUN/Creatinine Ratio 15, Glucose Level 106H, Calcium Level 8.7, Phosphorus Level 3.8, Magnesium Level 1.9 Microbiology 08/12/19 MRSA Screen - Final, Complete MRSA not isolated 08/15/19 Urine Culture - Preliminary, Resulted Klebsiella pneumoniae Enterococcus faecalis Home Meds Active Reported Aspirin 81 Mg Tab.chew 81 Mg PO DAILY Spironolactone 25 Mg Tablet 25 Mg PO DAILY Metoprolol Succinate 100 Mg Tab.er.24h 100 Mg PO DAILY Amlodipine Besylate 10 Mg Tablet 10 Mg PO DAILY Hydralazine HCl 50 Mg Tablet 50 Mg PO TID Acid Director Medical Surgical (RANITIDINE) (Ranitidine HCl) 150 Mg Tablet 150 Mg PO HS Prazosin HCl 1 Mg Capsule 1 Mg PO HS Hydroxyzine HCl 25 Mg Tablet 25 Mg PO TID PRN Clonidine HCl 0.2 Mg Tablet 0.2 Mg PO BID Tylenol Extra Strength (Acetaminophen) 500 Mg Tablet 1,000 Mg PO Q6H PRN Phenobarbital 97.2 Mg Tablet 97.2 Mg PO DAILY Oxcarbazepine 600 Mg Tablet 600 Mg PO BID Assessment/Pt Instructions [facility] as scheduled Discharge Planning: <30 minutes discharge planning Discharge Instructions Discharge Diet: No Restrictions Activity as Tolerated: Yes Discharge Physical Examination Vital Signs Vital Signs Date Time Temp Pulse Resp B/P (MAP) Pulse Ox O2 Delivery O2 Flow Rate FiO2 08/17/19 08:35 Nasal Cannula 2.00 08/17/19 07:00 72 08/17/19 04:00 36.6 19 151/82 (105) 97 General Appearance: No Apparent Distress, WD/WN, Chronically ill Respiratory: Lungs Clear, Normal Breath Sounds Cardiovascular: Regular Rate, Rhythm Neurologic/Psychiatric: Alert, Oriented x3, No Motor/Sensory Deficits, Normal Mood/Affect Allergies: Coded Allergies: nitrous oxide (Verified Allergy, Unknown, 06/08/07) Discharge Summary Date of Admission Aug 12, 2019 at 09:48 Date of Discharge Discharge Date: Aug 17, 2019 Admission Diagnosis Assessment: Altered mental status Severe methamphetamine abuse Seizure disorder with acute seizures Poor vascular access not a [place] port candidate due to IV drug abuse Elevated troponin Mental illness Plan: ICU Poor prognosis Home meds when alert Discharge Diagnosis Assessment: Altered mental status Seizure disorder with seizure this morning History of illicit drug abuse Elevated troponin History of CAD Malignant type hypertension restarted home meds Acute renal failure on chronic renal insufficiency Bipolar disorder Plan: Home meds Transfer to fourth floor Seizure treatment Monitor closely Poor prognosis long-term (1) Altered mental status Status: Acute Qualifiers: Qualified Codes: R41.82 - Altered mental status, unspecified (2) Acute renal failure Status: Acute Qualifiers: Qualified Codes: N17.9 - Acute kidney failure, unspecified (3) Elevated troponin Status: Acute (4) Seizure disorder Status: Acute (5) Hypertensive urgency Status: Acute (6) Drug abuse Status: Acute (7) Dehydration Status: Acute Clinical Quality Measures DVT/VTE Risk/Contraindication: Risk Factor Score Per Nursin RFS Level Per Nursing on Admit: 4+=Very High RAJAN VALDOVINOS DO Aug 17, 2019 09:22 POS
--- NOTE | 2019-08-17 10:00 | NUR ---
CALLED REECE FROM RT TO DO HOME O2 STUDY.
[2019-08-17 12:00] VITALS: BP 121/62
--- NOTE | 2019-08-17 12:00 | NUR ---
O2 SAT 93% OFF O2 IN A DEEP SLEEP.
--- NOTE | 2019-08-17 12:30 | NUR ---
CALLED ROSSANA MORENO ABOUT HOME O2 STUDY.
[2019-08-17 13:00] VITALS: BP 121/62
--- NOTE | 2019-08-17 13:00 | NUR ---
WINTERKEREN Tomas demonstrates understanding of discharge instructions and accurately returns instructions upon questioning. Copy of Post-Discharge Instructions given to PT. WINTERKEREN Tomas is able to manage continuing needs after discharge WITH ASSISTANCE OF HOME HEALTH CARE. Patients belongings returned to PT. Patient discharged from [facility] on 08/17/19 at 1300. KEREN MAX left floor via W/C, accompanied by STAFF AND FRIEND PER AUTO.
--- NOTE | 2019-08-17 14:46 | NUR ---
O2 qualification was started by RT Geronimo but was not finished due to patient being discharged before it was done! After patient went home RN called RT Gisselle to see if O2 qualification was done on 424? RT Gisselle spoke with RT Geronimo and he said no it wasn't that he had notified the YARIEL Thomas earlier that he turned the O2 off for it but had not went back to check on patient again. RT Pitts let YARIEL Tohmas know that it had not been done.
--- NOTE | 2019-08-17 16:13 | NUR ---
Pt left the hospital before Respiratory Home oxygen study completed. RT reported that pt was 98% with 2 liters of oxygen. While oxygen was turned off pt didn't complain of feeling short of breath. She left with her arranged ride prior to completion of the oxygen study. Nursing had previously reported that her oxygen resting rate was 93%. This social media marketing analyst contacted pt by phone and learned that she was at [facility] with her Independent Living worker. Advised Naomi to go to her primary medical provider's clinic which is Nabil MCCARTNEY, at the [facility] and complete the home oxygen study. She agreed. Also contacted [facility] and asked for Crow Abdi's office and they advised that they will contact pt and make arrangement for further oxygen study to be completed as soon as possible.
--- NOTE | 2019-08-17 21:12 | Cardiology Progress Note ---
Cardiology SOAP Progress Note Subjective: No further complaints Objective: I&O/Vital Signs 08/17/19 08/17/19 12:00 13:00 Temp 36.3 36.3 Pulse 88 88 Resp 16 16 B/P (MAP) 121/62 (81) 121/62 Pulse Ox 93 93 O2 Delivery Room Air Room Air 08/17/19 00:00 Intake Total 1590 ml Balance 1590 ml Weight (Pounds): 155 Weight (Ounces): 8.0 Weight (Calculated Kilograms): 70.613256 Constitutional: appears stated age; No apparent distress; well-developed, well- nourished Respiratory: chest is bilaterally symmetric, lungs clear to auscultation Cardiovascular: regular rate-rhythm, S1 and S2 Gastrointestional: soft, audible bowel sounds; No spleenomegaly Extremities: normal range of motion, non-tender, normal inspection; No clubbing, No cyanosis; no lower extremity edema bilateral; No significant edema Neurologic/Psychiatric: no motor/sensory deficits, alert, normal mood/affect, oriented x 3, power is 5/5 both on sides Skin: normal color, warm/dry; No rash, No ulcerations Results/Procedures: Labs Laboratory Tests 08/16/19 21:20: Glucometer 165H 08/17/19 04:55: White Blood Count 3.6L, Red Blood Count 3.40L, Hemoglobin 9.7L, Hematocrit 30L, Mean Corpuscular Volume 89, Mean Corpuscular Hemoglobin 29, Mean Corpuscular Hemoglobin Concent 32, Red Cell Distribution Width 14.0, Platelet Count 259, Mean Platelet Volume 10.6H, Neutrophils (%) (Auto) 42, Lymphocytes (%) (Auto) 44, Monocytes (%) (Auto) 6, Eosinophils (%) (Auto) 7, Basophils (%) (Auto) 1, Neutrophils # (Auto) 1.5L, Lymphocytes # (Auto) 1.6, Monocytes # (Auto) 0.2, Eosinophils # (Auto) 0.3, Basophils # (Auto) 0.0, Sodium Level 136, Potassium Level 4.4, Chloride Level 101, Carbon Dioxide Level 24, Anion Gap 11, Blood Urea Nitrogen 23H, Creatinine 1.54H, Estimat Glomerular Filtration Rate 35, BUN/Creatinine Ratio 15, Glucose Level 106H, Calcium Level 8.7, Phosphorus Level 3.8, Magnesium Level 1.9 08/17/19 11:11: Glucometer 110 Microbiology 08/12/19 MRSA Screen - Final, Complete MRSA not isolated 08/15/19 Urine Culture - Preliminary, Resulted Klebsiella pneumoniae Enterococcus faecalis A/P: Assessment/Dx: Generalized tonic-clonic seizure, Hypertension, Positive troponin, Acute kidney injury, Methamphetamine use, LV systolic dysfunction, Plan: Generalized tonic-clonic seizure, defer to the primary team. Hypertension, continue outpatient meds. Positive troponin, Previous cath was negative. stress test 06/2019 did not show any myocardial ischemia. Acute kidney injury, Methamphetamine use. LV systolic dysfunction on cath in 2018, however MPI 06/2019 shows EF 50%. Thank you for your consultation. Please call me if you have any questions. Brinda Jenkins MD, FACP, FACC, FSCAI, FHRS, CCDS Interventional Cardiology Cardiac Electrophysiology Vascular Medicine and Endovascular Interventions Focused Exam Lactate Level 08/14/19 23:59: Lactic Acid Level 0.84 Paolo JENKINS MD Aug 17, 2019 21:12 POS
--- NOTE | 2019-08-19 10:28 | Physician Query Clarification ---
PQ-Intro New Diagnosis Admission/Discharge Admission Date: Aug 12, 2019 at 09:48 Discharge Date: Aug 17, 2019 at 13:00 The medical record reflects the following clinical scenario: History/Risk Factors: Seizure disorder,malignant HTN with hypertensive urgency, Acute renal failure, meth abuse, endocarditis Clinical Findings: Troponin 0.406 Treatment: serial troponins, Toprol XL 100 mg PO daily Question: What condition best reflects the above clinical scenario? Please document a response in the Progress Noter or Discharge Summary. 1. Type 2 MT 2. Elevated troponin etiology unknown 3. Other, with explanation of the clinical findings. 4. Clinically undetermined, no explanation for the clinical findings. PHYSICIAN RESPONSE What condition reflects above: Clinically undetermined Explanation of clincal finding Likely due to severe HTN, seizures and STEVE. Cath and MPI negative previously. Please remember a lack of response to the above will prompt a phone page by CDI/Coding staff. In responding to this query, please exercise your independent professional judgment. The purpose of this communication is to more accurately reflect the complexity of your patients condition. The fact that a question is asked does not imply that any particular answer is desired or expected. Thank you for your timely response to this clarification. Requestors name: Najma THIS PHYSICIAN QUERY FORM IS A PERMANENT PART OF THE MEDICAL RECORD NAJMA ESTEBAN Aug 19, 2019 10:28 Paolo ROCHA MD Aug 20, 2019 09:23 POS
--- NOTE | 2019-08-20 12:33 | NUR ---
On 08/18,pt called [facility] and was doing OK but thinks she may need oxygen as feels short of breath upon exertion.She wanted to reassure staff that she was alright.
== END 2019-08-17 13:00 | disposition home health service (06) | DRG 100 ==
LOC: EDUNIT# 05:26 → ER 05:27 → ICU 09:48 → 4TH 08-15 21:45
PROVIDERS: ADMIT Family Medicine; ATTEND Family Medicine
DX: G40.409 Other generalized epilepsy and epileptic syndromes, not intractable, without status epilepticus (principal); R41.82 Altered mental status, unspecified; N17.9 Acute kidney failure, unspecified; I16.0 Hypertensive urgency; I21.A1 Myocardial infarction type 2; I69.354 Hemiplegia and hemiparesis following cerebral infarction affecting left non-dominant side; I38 Endocarditis, valve unspecified; E86.0 Dehydration; J90 Pleural effusion, not elsewhere classified; R79.89 Other specified abnormal findings of blood chemistry; F15.10 Other stimulant abuse, uncomplicated; J44.9 Chronic obstructive pulmonary disease, unspecified; I12.9 Hypertensive chronic kidney disease with stage 1 through stage 4 chronic kidney disease, or unspecified chronic kidney disease; N18.9 Chronic kidney disease, unspecified; F17.210 Nicotine dependence, cigarettes, uncomplicated; B19.20 Unspecified viral hepatitis C without hepatic coma; I69.398 Other sequelae of cerebral infarction; R26.81 Unsteadiness on feet; K21.9 Gastro-esophageal reflux disease without esophagitis; M54.9 Dorsalgia, unspecified; M19.91 Primary osteoarthritis, unspecified site; F41.9 Anxiety disorder, unspecified; F31.9 Bipolar disorder, unspecified; I95.9 Hypotension, unspecified; Z85.41 Personal history of malignant neoplasm of cervix uteri; Z91.19 Patient's noncompliance with other medical treatment and regimen
CPT/HCPCS: 36415; 70450; 71045; 71250; 72125; 74176; 80048; 80053; 80184; 80306; 80320; 80329; 81000; 82140; 82805; 82962; 83605; 83690; 83735; 83880; 84100; 84145; 84484; 85025; 85610; 85730; 86141; 87077; 87081; 87088; 87186; 87804; 93005; 93306

== ENCOUNTER 2019-08-26 03:45 | Inpatient (IN) | payer MEDICAID ==
[~2019-08-26] VITALS: Ht 160 cm; Wt 76.3 kg
[2019-08-26] VITALS (23 sets, daily range): BP systolic 87–140; BP diastolic 52–75
[~2019-08-26 03:45] MED LIST changes: +LEVE500T99 PO
[2019-08-26] MEDS ORDERED: NALOXONE 0.4 MG/ML 1 ML (NARCAN) VIAL ONE (03:50)
[2019-08-26] MEDS ORDERED: NALOXONE 2 MG/2 ML (NARCAN) SYR ONE (03:50)
[2019-08-26] MEDS ORDERED: NS IV 1000 ML 1,000 ML ONE (04:02)
--- NOTE | 2019-08-26 04:03 | NUR ---
0400- 2MG IV NARCAN GIVEN. 0401- PT EYES OPENING SPONTANEOUSLY. STATES, "WHERE AM I?" AND MOVING AROUND BED TRYIING TO SIT UP. PT ANSWERED SOME QUESTIONS APPROPRIATELY, BUT SLURRED SPEECH CONTINUED. 0403- EYES CLOSED, SNORE LIKE RESPIRATIONS RESUMED. DR. BRIGHT NOTIFIED. 02 SATS 93-97% RANGE ON 2L VIA NC.
[2019-08-26 04:09] LABS: BASOPHILS % (AUTO) 1 % (0-10); EOSINOPHILS # (AUTO) 0.2 10^3/uL (0.0-0.3); EOSINOPHILS % (AUTO) 4 % (0-10); HEMATOCRIT 31 % (35-52); HEMOGLOBIN 9.8 G/DL (11.5-16.0); LYMPHOCYTES # (AUTO) 2.4 X 10^3 (1.0-4.0); LYMPHOCYTES % (AUTO) 41 % (12-44); MEAN CORPUSCULAR HEMOGLOBIN 29 PG (25-34); MEAN CORPUSCULAR HGB CONC 31 G/DL (32-36); MEAN CORPUSCULAR VOLUME 91 FL (80-99); MEAN PLATELET VOLUME 9.3 FL (7.4-10.4); MONOCYTES # (AUTO) 0.4 X 10^3 (0.0-1.0); MONOCYTES % (AUTO) 7 % (0-12); NEUTROPHILS # (AUTO) 2.8 X 10^3 (1.8-7.8); NEUTROPHILS % (AUTO) 48 % (42-75); PLATELET COUNT 387 10^3/uL (130-400); RED CELL DISTRIBUTION WIDTH 14.9 % (10.0-14.5); WHITE BLOOD COUNT 5.9 10^3/uL (4.3-11.0)
[2019-08-26 04:15] LABS: INR 0.9 (0.8-1.4); PROTHROMBIN TIME PATIENT 12.7 SEC (12.2-14.7)
[2019-08-26 04:16] LABS: ABG BASE EXCESS -4.7 MMOL/L (-2.5-2.5); ABG OXYGEN SATURATION 90 % (94-100); ABG PCO2 45 MMHG (35-45); ABG PO2 64 MMHG (79-93); ABG TCO2 22.5 MMOL/L (21.0-31.0)
[2019-08-26 04:17] LABS: ALLENS TEST YES-POS; INSPIRED O2 2L; VENTILATOR NO
[2019-08-26 04:18] LABS: ABG PH 7.29 (7.37-7.43)
[2019-08-26] MEDS ORDERED: LACTATED RINGERS 1,000 ML IV ONE ×5 (04:20→18:13)
[2019-08-26] MEDS ORDERED: NS IV 1000 ML 1,000 ML IV ONE (04:20)
[2019-08-26] MEDS ORDERED: methylPREDNISolone 125 MG (Solu-MEDROL) VIAL IV STA (04:20)
[2019-08-26 04:27] LABS: BILIRUBIN,URINE NEGATIVE (NEGATIVE); CLARITY,URINE CLEAR; COLOR,URINE YELLOW; GLUCOSE, URINE (UA) NEGATIVE (NEGATIVE); KETONES,URINE NEGATIVE (NEGATIVE); LEUKOCYTE ESTERASE ,URINE NEGATIVE (NEGATIVE); NITRITE,URINE NEGATIVE (NEGATIVE); PROTEIN,URINE NEGATIVE (NEGATIVE)
[2019-08-26] MEDS ORDERED: CEFEPIME INJECTION 1,000 MG in WATER (STERILE) FOR INJECTION 10 ML IV ONE ×2 (04:30→07:15)
[2019-08-26 04:36] LABS: BACTERIA,URINE NEGATIVE /HPF; HYALINE CASTS, URINE RARE /LPF
[2019-08-26 04:39] LABS: AMPHETAMINE SCREEN, URINE NEGATIVE (NEGATIVE); BARBITURATE SCREEN URINE POSITIVE (NEGATIVE); BENZODIAZEPINES SCREEN URINE NEGATIVE (NEGATIVE); CANNABINOID SCREEN, URINE NEGATIVE (NEGATIVE); COCAINE SCREEN URINE NEGATIVE (NEGATIVE); METHADONE STAT NEGATIVE (NEGATIVE); METHAMPHETAMINE SCREEN URINE S NEGATIVE (NEGATIVE); OPIATE SCREEN URINE NEGATIVE (NEGATIVE); OXYCODONE STAT NEGATIVE (NEGATIVE); PROPOXYPHENE STAT NEGATIVE (NEGATIVE); TRICYCLIC ANTIDEPRESSANTS SCRE NEGATIVE (NEGATIVE)
[2019-08-26 04:46] LABS: ALANINE AMINOTRANSFERASE 15 U/L (0-55); ALBUMIN 3.8 GM/DL (3.2-4.5); ALKALINE PHOSPHATASE 73 U/L (40-136); BILIRUBIN,TOTAL 0.1 MG/DL (0.1-1.0); BUN/CREATININE RATIO 35; CALCIUM 8.5 MG/DL (8.5-10.1); CARBON DIOXIDE 17 MMOL/L (21-32); CHLORIDE 111 MMOL/L (98-107); CREATINE KINASE 46 U/L (29-168); CREATININE SERUM 1.54 MG/DL (0.60-1.30); GFR ESTIMATED 35; GLUCOSE 81 MG/DL (70-105); MAGNESIUM 2.1 MG/DL (1.6-2.4); POTASSIUM 6.1 MMOL/L (3.6-5.0); SALICYLATE < 5.0 MG/DL (5.0-20.0); SODIUM 140 MMOL/L (135-145); TOTAL PROTEIN 6.6 GM/DL (6.4-8.2)
[2019-08-26 04:49] LABS: ACETAMINOPHEN < 10 UG/ML (10-30)
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
[2019-08-26 04:59] LABS: CREATINE KINASE MB 2.8 NG/ML (<6.6)
[2019-08-26 05:39] LABS: CALCIUM 7.8 MG/DL (8.5-10.1); CREATININE SERUM 1.34 MG/DL (0.60-1.30); POTASSIUM 5.9 MMOL/L (3.6-5.0)
[2019-08-26] MEDS ORDERED: RT-ALBUTEROL SULF 2.5 MG/3 ML PRE-MIX VIAL INH STA (05:42)
[2019-08-26] MEDS ORDERED: inSUlin (REGULAR) HUMAN 1 UNIT/0.01 ML (CHARGE PER UNIT) IV ONE (05:45)
[2019-08-26] MEDS ORDERED: RT-ALBUTEROL/IPRATROPIUM 3 ML (DUONEB) VIAL INH ONE (05:45)
[2019-08-26] MEDS ORDERED: CALCIUM GLUC. 10% 4.65 MEQ/10 ML VIAL IV ONE (05:45)
[2019-08-26] MEDS ORDERED: DEXTROSE 50% 50 ML (IMS) SYR IV ONE (05:45)
[2019-08-26] MEDS ORDERED: CALCIUM GLUC. 10% 4.65 MEQ/10 ML VIAL ONE (05:50)
[2019-08-26] MEDS ORDERED: DEXTROSE 50% 50 ML (IMS) SYR ONE (05:51)
[2019-08-26] MEDS ORDERED: inSUlin (REGULAR) HUMAN 1 UNIT/0.01 ML (CHARGE PER UNIT) ONE (05:51)
[2019-08-26] MEDS ORDERED: RT-ALBUTEROL SULF 2.5 MG/3 ML PRE-MIX VIAL ONE (06:02)
[2019-08-26] MEDS ORDERED: RT-ALBUTEROL/IPRATROPIUM 3 ML (DUONEB) VIAL ONE (06:02)
[2019-08-26] MEDS ORDERED: PROPOFOL DRIP (ICU) 100 ML IV ONE ×2 (06:35→08:36)
--- NOTE | 2019-08-26 06:52 | NUR ---
0620- PT INCREASED TO 12 ON CPAP PER RT CRISSY. DR. BRIGHT AND DR. BURRELL DECIDE TO INTUBATE AT THIS TIME R/T PT INCREASED SNORE LIKE BREATHING AND DECREASE IN MENTAL STATUS. 0627- 20MG ETOMIDATE IVP PER DR. BRIGHT VERBAL ORDERS. 0630- 20MG ETOMIDATE IVP PER DR. BRIGHT VERBAL ORDERS. 0632- 42MG ROCURONIUM GIVEN IVP PER DR. BRIGHT VERBAL ORDERS. 0634- INTUBATED WITH 7.[address] BURRELL, 24CM AT TEETH, POSITIVE COLOR CHANGE CO2 DETECTOR. 0643- OGT PLACED. 0652- 5MG VERSED GIVEN IVP PER DR. BURRELL ORDERS PT AGITATED WHILE TRYING TO OBTAIN pCXR. SEE EMAR FOR FURTHER MEDICATION ADMINISTRATIONS.
--- NOTE | 2019-08-26 06:59 | Diagnostic Imaging Report ---
PROCEDURE: CT head and CT cervical spine without contrast. TECHNIQUE: Multiple contiguous axial images were obtained through the brain and cervical spine without the use of intravenous contrast. Sagittal and coronal reformations through the cervical spine were then performed. Auto Exposure Controls were utilized during the CT exam to meet ALARA standards for radiation dose reduction. INDICATION: Found down on floor of living room. Shortness of air, confusion, coarse respirations found by EMS. EXAMINATION: CT brain and CT cervical spine dated 08/26/2019. COMPARISON: CT from 08/12/2019 FINDINGS: Brain: There is no acute intracranial hemorrhage, mass, mass effect or midline shift. No acute infarct. No hydrocephalus. The osseous structures demonstrate no acute abnormality. Partial opacification of the ethmoid air cells noted with deviation of the nasal septum towards the left. IMPRESSION: 1. No acute intracranial process. CT cervical spine: No acute fractures or subluxations are appreciated. Multilevel degenerative findings, however are noted with anterolisthesis mild in nature at C7-T1 and similar to previous. Facet hypertrophy is seen bilaterally at multiple levels. Lung apices are clear. Prevertebral soft tissues unremarkable. IMPRESSION: 1. Chronic change. No acute osseous abnormality. Pertinent findings agree with the preliminary report. Dictated by: Dictated on workstation # [id number]
[2019-08-26] MEDS ORDERED: PROPOFOL INJECTION 50 ML IV SCH (07:00)
[2019-08-26] MEDS ORDERED: MIDAZOLAM 5 MG/5 ML (VERSED) VIAL IVP ONE (07:00)
[2019-08-26] MEDS ORDERED: CEFEPIME 1 GM (MAXIPIME) VIAL ONE (07:35)
--- NOTE | 2019-08-26 07:35 | NUR ---
PT SITTING UP IN BED, BUCKING VENT, 5MG VERSED IVP GIVEN FROM RSI BOX PER VERBAL ORDERS DR. BURRELL.
[2019-08-26] MEDS ORDERED: WATER (STERILE) FOR INJECTION 10 ML ONE (07:36)
[2019-08-26 07:39] LABS: ABG BASE EXCESS -8.1 MMOL/L (-2.5-2.5); ABG OXYGEN SATURATION 89 % (94-100); ABG PCO2 44 MMHG (35-45); ABG PO2 62 MMHG (79-93); ABG TCO2 19.6 MMOL/L (21.0-31.0)
[2019-08-26 07:41] LABS: ABG PH 7.23 (7.37-7.43); ALLENS TEST POSITIVE; INSPIRED O2 100%; VENTILATOR YES
[2019-08-26 07:42] LABS: PATIENT TEMP 36.5
--- NOTE | 2019-08-26 07:53 | Diagnostic Imaging Report ---
INDICATION: Tube placement. EXAMINATION: Chest 08/26/2019. COMPARISON: 08/26/2019 at 5:42 a.m. The current examination is from 6:53 a.m. FINDINGS: An ET tube tip is new and unremarkable in positioning at least a centimeter and half from the viktoria. There is a feeding tube tip in the left upper quadrant. The heart and pulmonary vasculature appear stable. There are findings of edema within the lungs with perihilar infiltrates not excluded. No pneumothorax or effusions. IMPRESSION: 1. Tubes as described. 2. Pulmonary edema is suspected with possible increasing perihilar infiltrates. Dictated by: Dictated on workstation # [id number]
--- NOTE | 2019-08-26 07:55 | Diagnostic Imaging Report ---
INDICATION: Found down, unresponsive, snoring. EXAMINATION: Chest 08/26/2019. COMPARISON: 08/15/2019. FINDINGS: The heart is slightly prominent. Pulmonary vasculature minimally prominent as well. The remaining lungs are clear. No effusions. No pneumothorax. IMPRESSION: Pulmonary vascular congestion versus bilateral perihilar infiltrate correlate with symptoms. Dictated by: Dictated on workstation # [id number]
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
[2019-08-26] MEDS ORDERED: ETOMIDATE IV SOLN 20 MG/10 ML VIAL IV ONE (08:09)
[2019-08-26] MEDS ORDERED: MIDAZOLAM 5 MG/5 ML (VERSED) VIAL IJ ONE (08:09)
[2019-08-26] MEDS ORDERED: ROCURONIUM 10 MG/ML 5 ML SYRINGE IV ONE (08:09)
[2019-08-26] MEDS ORDERED: DEXMEDETOMIDINE INJECTION 1,000 MCG in NS (IVPB) 240 ML IV SCH (08:30)
[2019-08-26] MEDS: fentaNYL INJECTION 100 MCG/2 ML AMP IVP PRN ×2 (08:45→09:12)
[2019-08-26] MEDS ORDERED: 0.9% SODIUM CHLORIDE PF INJ 20 ML VIAL ONE (08:54)
[2019-08-26] MEDS ORDERED: CATHETER FLUSH 10 ML SYR IV PRN (09:00)
[2019-08-26] MEDS: D5 1/2 NS 1000 ML IV SOLUTION 1,000 ML IV SCH ×2 (09:41→17:56)
--- NOTE | 2019-08-26 09:43 | NUR ---
GENTAMICIN DOSING GENTAMICIN DOSING - SCR 1.34; CRCL ~ 1.34; ADJ BW 59 KG X 7 MG/KG ~ 420 MG Q24H CHECK RANDOM (9HR) LEVEL 08/26 190 - PTD BASED ON LEVEL
[2019-08-26] MEDS ORDERED: NS IV SCH (10:00)
[2019-08-26] MEDS ORDERED: GENTAMICIN IV SCH (10:00)
--- NOTE | 2019-08-26 10:02 | Diagnostic Imaging Report ---
INDICATION: Central line placement. Time of exam: 9:28 AM Correlation is made with prior chest from earlier the same day. ET tube has tip above the viktoria. NG tube passes into the stomach. A right IJ line has been placed and has the tip overlying the SVC. No pneumothorax is seen. Heart size is stable. Mild perihilar infiltrate persists. There is no effusion. IMPRESSION: Right IJ line placement, as described. No pneumothorax is seen. Dictated by: Dictated on workstation # [id number]
--- NOTE | 2019-08-26 10:14 | Pulmonary Procedures ---
Pulmonary Procedures Date of Procedure Date of Service: Aug 26, 2019 Lumen: triple (US guided central line placement. ) Central Line Procedure: betadine prep, sterile drapes applied, sterile dressing applied Position: internal jugular (R) Anesthesia: local Volume Anesthetic (ccs): 3 Complications: none Post Position: sutured, good blood return, position confirmed w/ CXR RICARDA COVINGTON DO Aug 26, 2019 10:14 POS
[2019-08-26 10:32] LABS: ABG BASE EXCESS -8.7 MMOL/L (-2.5-2.5); ABG OXYGEN SATURATION 99 % (94-100); ABG PCO2 41 MMHG (35-45); ABG PO2 159 MMHG (79-93); ABG TCO2 18.8 MMOL/L (21.0-31.0)
[2019-08-26 10:33] LABS: BASOPHILS % (AUTO) 0 % (0-10); EOSINOPHILS % (AUTO) 0 % (0-10); HEMATOCRIT 30 % (35-52); HEMOGLOBIN 9.4 G/DL (11.5-16.0); LYMPHOCYTES # (AUTO) 0.9 X 10^3 (1.0-4.0); LYMPHOCYTES % (AUTO) 9 % (12-44); MEAN CORPUSCULAR HEMOGLOBIN 29 PG (25-34); MEAN CORPUSCULAR HGB CONC 31 G/DL (32-36); MEAN CORPUSCULAR VOLUME 93 FL (80-99); MEAN PLATELET VOLUME 9.5 FL (7.4-10.4); MONOCYTES # (AUTO) 0.1 X 10^3 (0.0-1.0); MONOCYTES % (AUTO) 1 % (0-12); NEUTROPHILS # (AUTO) 8.9 X 10^3 (1.8-7.8); NEUTROPHILS % (AUTO) 90 % (42-75); PLATELET COUNT 349 10^3/uL (130-400); RED CELL DISTRIBUTION WIDTH 14.9 % (10.0-14.5); WHITE BLOOD COUNT 9.9 10^3/uL (4.3-11.0)
[2019-08-26 10:34] LABS: ABG PH 7.24 (7.37-7.43); ALLENS TEST POSITIVE; INSPIRED O2 60% FI02; PATIENT TEMP 36; VENTILATOR YES
[2019-08-26 10:53] LABS: ALBUMIN 3.7 GM/DL (3.2-4.5); BILIRUBIN,TOTAL 0.2 MG/DL (0.1-1.0); CALCIUM 8.5 MG/DL (8.5-10.1); CREATININE SERUM 1.53 MG/DL (0.60-1.30); MAGNESIUM 1.8 MG/DL (1.6-2.4); PHOSPHORUS 5.8 MG/DL (2.3-4.7); TOTAL PROTEIN 6.3 GM/DL (6.4-8.2)
[2019-08-26] MEDS: AZITHROMYCIN 500 MG/NS 250 ML IVPB IV SCH ×2 (11:02)
--- NOTE | 2019-08-26 11:13 | NUR ---
This nurse notified of critical lab results at this time.
[2019-08-26 11:29] LABS: ANISOCYTOSIS SLIGHT; BASOPHILS % (MANUAL) 1 %; LYMPHOCYTES % (MANUAL) 5 %; MONOCYTES % (MANUAL) 2 %; NEUTROPHILS % (MANUAL) 92 %; TOXIC GRANULATION/VACUOLAZATIO 1+
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
[2019-08-26] MEDS ORDERED: LEVE500T99 PO (11:49)
[2019-08-26] MEDS ORDERED: LORA10TA7 PO (11:49)
[2019-08-26] MEDS ORDERED: LOSA100T57 PO (11:49)
[2019-08-26] MEDS ORDERED: CLON0.2T PO (11:49)
[2019-08-26] MEDS ORDERED: CYCL10TA9 PO (11:51)
--- NOTE | 2019-08-26 11:51 | NUR ---
UNABLE TO SPEAK WITH THE PATIENT ABOUT HER MEDICATIONS. I UPDATED THE MED REC WITH WHAT HAS BEEN FILLED AT [facility] RECENTLY. [facility] FILLED: 08-19-19 PRAZOSIN 1MG DAILY #30 08-19-19 OXCARBAZEPINE 600MG BID #60 08-19-19 METOPROLOL SUCCINATE 100MG DAILY #30 08-19-19 HYDRALAZINE 50MG TID #90 08-19-19 FLEXERIL 10MG TID PRN #90 08-19-19 LOSARTAN 100MG DAILY #30 08-19-19 LORATADINE 10MG DAILY #30 08-19-19 HYDROXYZINE 25MG BID PRN #60 08-19-19 PHENOBARBITAL 97.2MG DAILY #30 08-17-19 CLONIDINE 0.2MG 2 TABS BID #60 FOR 15 DAYS 08-17-19 KEPPRA 50MG BID #60 08-03-19 SPIRONOLACTONE 25MG DAILY #30 08-03-19 RANITIDINE 150MG DAILY #30 07-05-19 AMLODIPINE 10MG DAILY #30 OTC MEDS PREVIOUSLY REPORTED ASPIRIN 81MG DAILY AND TYLENOL PRN
--- NOTE | 2019-08-26 12:55 | Occ Therapy Progress Note ---
Therapy Progress Note Pt intubated on this date, will check tomorrow and begin therapy services when medically stable. NUPUR VILLARREAL OTR Aug 26, 2019 12:55 POS
[2019-08-26] MEDS: PROPOFOL DRIP (ICU) 100 ML IV SCH ×3 (13:21→21:57)
--- NOTE | 2019-08-26 13:28 | Physical Therapy Progress Note ---
Therapy Progress Note Patient is currently sedated and intubated on ventilator. PT will continue to monitor patient status and begin when patient is able to actively participate with skilled therapy. ANURAG GENTILE PT Aug 26, 2019 13:28 POS
[2019-08-26] MEDS: ENOXAPARIN 40 MG/0.4 ML (LOVENOX) SYR SQ SCH (13:30)
--- NOTE | 2019-08-26 13:32 | NUR ---
Contacted pt's sister Eileen Stephen who lives in [place], [place]. Eileen reports that she is pt's DPOA for Health care and will fax us a copy to be placed in her chart. She also left her contact numbers which are Home phone [phone] and cell phone number is [phone]. Pt has one other sister who lives in [place]. Pt has one son living exact whereabouts unknown.
[2019-08-26] MEDS: RT-ALBUTEROL/IPRATROPIUM 3 ML (DUONEB) VIAL INH SCH ×3 (13:44→20:59)
--- NOTE | 2019-08-26 14:10 | NUR ---
from [facility] called this nurse, he asked me to remove the OG tube and to replace it due to the OG tube coiling. This nurse auscultated placement again and the OG tube sounded as if it were in the right place, I checked the xray report as well. This nurse replaced the OG tube per physicians orders, faxed information over about our communication and wrote that he wanted a chest xray to confirm placement of the newly placed OG tube.
--- NOTE | 2019-08-26 14:37 | Diagnostic Imaging Report ---
INDICATION: NG tube placement KUB at 2:27 PM FINDINGS: There is an NG tube projecting over the stomach. ET tube projects over the trachea. Right IJ central line tip projects over the SVC. Heart size and pulmonary vascularity are normal. Lungs are clear. There are no effusions or pneumothoraces. IMPRESSION: No acute abnormalities in the chest. Dictated by: Dictated on workstation # [id number]
--- NOTE | 2019-08-26 14:44 | NUR ---
Received dietary consult for TF regarding pt's vent status. Per RN, pt is not expected to intubated for long and enteral nutrition is not likely. Will continue to follow and reassess as pt needs and status change. Prakash Barrera, MS, RD, LD
--- NOTE | 2019-08-26 15:31 | NUR ---
Pt's sister Eileen Stephen did fax paper work showing that she was the DPOA for Health Care. Form placed in patient chart.
[2019-08-26] MEDS ORDERED: RT-ALBUTEROL/IPRATROPIUM 3 ML (DUONEB) VIAL INH PRN (16:00)
[2019-08-26] MEDS ORDERED: FAMOTIDINE 20MG/2ML IV (PEPCID) IV SCH (17:29)
[2019-08-26] MEDS: inSUlin ASPART (NovoLOG) 1 UNIT/0.01 ML (CHARGE PER UNIT) SQ SCH ×2 (17:47→23:23)
[2019-08-26 17:53] LABS: ABG BASE EXCESS -6.9 MMOL/L (-2.5-2.5); ABG OXYGEN SATURATION 80 % (94-100); ABG PCO2 44 MMHG (35-45); ABG PO2 47 MMHG (79-93); ABG TCO2 20.5 MMOL/L (21.0-31.0)
[2019-08-26 17:57] LABS: ABG PH 7.26 (7.37-7.43)
[2019-08-26 17:58] LABS: ALLENS TEST POS; INSPIRED O2 40%; PATIENT TEMP 36.1; VENTILATOR YES
[2019-08-26] MEDS ORDERED: SODIUM BICARB 8.4% 50 MEQ/50 ML VIAL IV STA (18:08)
--- NOTE | 2019-08-26 18:12 | NUR ---
This nurse updated on patients ABG results, telephone order received to give patient 1L LR bolus over 2 hours and 2 ampules, 100meq total of bicarb. Will continue to monitor.
[2019-08-26] MEDS ORDERED: GENTAMICIN LEVEL XX NR (19:00)
[2019-08-26] MEDS: LEVETIRACETAM INJECTION 1,000 MG in NS (IVPB) 100 ML IV SCH (20:28)
[2019-08-26] MEDS ORDERED: NON-FORMULARY MEDICATION 1 EA EA (Levetiracetam (Keppra) 500 MG) PO SCH (21:00)
[2019-08-27] VITALS (16 sets, daily range): BP systolic 120–184; BP diastolic 65–104
[2019-08-27] MEDS: RT-ALBUTEROL/IPRATROPIUM 3 ML (DUONEB) VIAL INH SCH ×5 (01:46→19:42)
[2019-08-27] MEDS: PROPOFOL DRIP (ICU) 100 ML IV SCH (02:22)
[2019-08-27 03:16] LABS: BASOPHILS % (AUTO) 0 % (0-10); EOSINOPHILS # (AUTO) 0.1 10^3/uL (0.0-0.3); EOSINOPHILS % (AUTO) 2 % (0-10); HEMATOCRIT 29 % (35-52); HEMOGLOBIN 9.4 G/DL (11.5-16.0); LYMPHOCYTES # (AUTO) 1.7 X 10^3 (1.0-4.0); LYMPHOCYTES % (AUTO) 27 % (12-44); MEAN CORPUSCULAR HEMOGLOBIN 29 PG (25-34); MEAN CORPUSCULAR HGB CONC 32 G/DL (32-36); MEAN CORPUSCULAR VOLUME 92 FL (80-99); MEAN PLATELET VOLUME 9.8 FL (7.4-10.4); MONOCYTES # (AUTO) 0.3 X 10^3 (0.0-1.0); MONOCYTES % (AUTO) 6 % (0-12); NEUTROPHILS % (AUTO) 66 % (42-75); PLATELET COUNT 318 10^3/uL (130-400); RED CELL DISTRIBUTION WIDTH 14.9 % (10.0-14.5); WHITE BLOOD COUNT 6.2 10^3/uL (4.3-11.0)
[2019-08-27 03:37] LABS: ALBUMIN 3.3 GM/DL (3.2-4.5); BILIRUBIN,TOTAL 0.2 MG/DL (0.1-1.0); CALCIUM 8.1 MG/DL (8.5-10.1); CREATININE SERUM 1.28 MG/DL (0.60-1.30); MAGNESIUM 1.9 MG/DL (1.6-2.4); PHOSPHORUS 5.7 MG/DL (2.3-4.7); POTASSIUM 4.8 MMOL/L (3.6-5.0); TOTAL PROTEIN 5.9 GM/DL (6.4-8.2)
[2019-08-27 04:00] LABS: ABG BASE EXCESS -3.4 MMOL/L (-2.5-2.5); ABG OXYGEN SATURATION 98 % (94-100); ABG PCO2 36 MMHG (35-45); ABG PH 7.38 (7.37-7.43); ABG PO2 113 MMHG (79-93); ABG TCO2 22.2 MMOL/L (21.0-31.0)
[2019-08-27 04:01] LABS: ALLENS TEST YES-POS; INSPIRED O2 35%; VENTILATOR YES
--- NOTE | 2019-08-27 04:01 | Pulmonary Progress Note ---
GONZALO ANDRADE A MEDICAL STUDENT 08/27/19 0400: Subjective Date Seen by a Provider: Aug 27, 2019 Time Seen by a Provider: 03:54 Subjective/Events-last exam Pt intubated, has started to wake up a little bit over night per nursing staff. No acute events over night. Pt's hyperkalemia has improved. Pt satting 99% on 35%FiO2 Sepsis Event Evaluation Height, Weight, BMI Height: 5'3.00" Weight: 155lbs. 8.0oz. 70.997191fn; 27.00 BMI Method:Stated Focused Exam Lactate Level 08/26/19 04:25: Lactic Acid Level 0.69 08/26/19 10:12: Lactic Acid Level 2.26*H 08/26/19 14:20: Lactic Acid Level 1.87 Exam Exam Vital Signs Date Time Temp Pulse Resp B/P (MAP) Pulse Ox O2 Delivery O2 Flow Rate FiO2 08/27/19 02:22 126/68 08/27/19 02:00 54 22 126/68 (87) 99 Mechanical Ventilator 35.00 08/27/19 01:46 54 22 99 35 08/27/19 01:00 53 08/27/19 01:00 53 22 126/73 (90) 99 Mechanical Ventilator 35.00 08/27/19 00:00 53 22 120/65 (83) 99 Mechanical Ventilator 35.00 08/27/19 00:00 99 Mechanical Ventilator 35 08/26/19 23:22 36.1 Mechanical Ventilator 35.00 08/26/19 23:00 61 22 125/69 (87) 99 Mechanical Ventilator 40.00 08/26/19 22:00 60 21 115/61 (79) 99 Mechanical Ventilator 40.00 08/26/19 21:57 35.80159 56 17 121/70 100 Mechanical Ventilator 2.00 08/26/19 21:00 56 17 121/70 (87) 100 Mechanical Ventilator 40.00 08/26/19 20:59 56 22 100 35 08/26/19 20:02 58 22 100 35 08/26/19 20:00 57 22 117/68 (84) 99 Mechanical Ventilator 40.00 08/26/19 20:00 35.9 08/26/19 20:00 99 Mechanical Ventilator 40 08/26/19 19:00 59 08/26/19 19:00 59 21 102/58 (73) 99 Mechanical Ventilator 40.00 08/26/19 18:51 08/26/19 18:00 64 22 88/56 (67) 99 Mechanical Ventilator 40.00 08/26/19 17:00 67 17 89/54 (66) 100 Mechanical Ventilator 40.00 08/26/19 16:43 89/49 08/26/19 16:00 36.1 08/26/19 16:00 99 Mechanical Ventilator 40 08/26/19 16:00 71 18 92/57 (69) 99 Mechanical Ventilator 40.00 08/26/19 15:00 75 20 87/58 (68) 99 Mechanical Ventilator 50.00 08/26/19 14:00 79 19 98/64 (75) 99 Mechanical Ventilator 50.00 08/26/19 13:47 80 23 99 40 08/26/19 13:21 111/66 08/26/19 13:06 Mechanical Ventilator 50.00 08/26/19 13:00 73 08/26/19 13:00 36.0 73 100 97 08/26/19 13:00 73 18 107/66 (80) 100 Mechanical Ventilator 60.00 08/26/19 12:00 36.0 08/26/19 12:00 99 Mechanical Ventilator 60 08/26/19 12:00 75 17 111/63 (79) 100 Mechanical Ventilator 60.00 08/26/19 11:28 100 Mechanical Ventilator 60 08/26/19 11:00 75 15 106/62 (77) 99 Mechanical Ventilator 60.00 08/26/19 10:07 78 20 97 60 08/26/19 10:00 76 16 94/52 (66) 97 Mechanical Ventilator 60.00 08/26/19 09:38 Mechanical Ventilator 60.00 08/26/19 09:33 102/57 08/26/19 09:00 78 17 97/53 (68) 100 Mechanical Ventilator 100.00 08/26/19 08:30 86 17 117/63 (81) 100 Mechanical Ventilator 100.00 08/26/19 08:20 93 08/26/19 08:06 36.0 92 18 104/59 (67) 100 NIV Bilevel 08/26/19 07:20 92 08/26/19 06:55 99 25 98 100 08/26/19 06:44 100 08/26/19 06:11 68 16 98 28.00 08/26/19 05:50 65 16 98 28.00 08/26/19 05:01 36.0 80 21 90/56 97 Nasal Cannula 2.00 I & O 08/27/19 07:00 Intake Total 1460 ml Output Total 2325 ml Balance -865 ml Height & Weight Height: 5'3.00" Weight: 155lbs. 8.0oz. 70.475443op; 27.00 BMI Method:Stated General Appearance: No Apparent Distress, Other HEENT: No Scleral Icterus (L), No Scleral Icterus (R); Other Neck: Supple; No Carotid Bruit, No JVD Respiratory: Normal Breath Sounds, No Accessory Muscle Use, Other (intubated) Cardiovascular: Regular Rate, Rhythm, No Edema, No JVD, Normal Peripheral Pulses, Systolic Murmur (3/6 ), Gallop/S3 Capillary Refill: Less Than 3 Seconds Gastrointestinal: normal bowel sounds, non tender, soft Extremity: Normal Inspection, Pedal Edema (1+) Neurologic/Psychiatric: No Oriented x3; Other (intubated) Skin: Normal Color, Warm/Dry Results Lab Laboratory Tests 08/26/19 03:55 08/26/19 05:15 08/26/19 10:12 08/27/19 03:02 Assessment/Plan Assessment/Plan AMS -head CT negative -ammonia slightly elevated at 42 non-ion gap metabolic acidosis - acute respiratory failure with hypoxia -pt intubated in ed and on vent hyperkalemia -improved now at 4.8 (08/27) -will continue to monitor Elevated troponin -downtrending -Echo on 08/16 showed EF 55-65% with grade 2 diastolic dysfunction -Previous cath was negative. stress test 06/2019 did not show any myocardial ischemia Elevated BNP -suspected secondary to decreased renal function medication non-compliance History of meth abuse In: 4870 Out: 1575 Net: 3295 Lines: -Levetracetam 440cc/hr -Propofol 22cc/hr -Fentanyl 50mcg/hr -Azithro 250cc/hr -D5 100cc/hr -Dexmedetomidine 3.56cc/hr RICARDA BALDERRAMA DO 08/27/19 0440: Subjective Time Seen by a Provider: 04:35 Subjective/Events-last exam Sedated on vent. Exam Exam General Appearance: No Apparent Distress HEENT: No Scleral Icterus (L), No Scleral Icterus (R) Neck: No Carotid Bruit, No JVD Respiratory: Normal Breath Sounds, No Accessory Muscle Use Cardiovascular: Regular Rate, Rhythm, No Edema, No JVD, Normal Peripheral Pulses, Systolic Murmur (3/6 ) Gastrointestinal: normal bowel sounds, non tender, soft Extremity: Normal Inspection, Pedal Edema (1+) Neurologic/Psychiatric: No Oriented x3 Skin: Normal Color, Warm/Dry Assessment/Plan Assessment/Plan Acute respiratory failure -Pt was intubated in ED yesterday. -D/C propofol and wean vent. -Decrease IVF and give Lasix 40mg IV X 1 AMS -head CT negative -ammonia slightly elevated at 42 non-ion gap metabolic acidosis -Monitor -Give acute respiratory failure with hypoxia -pt intubated in ed and on vent hyperkalemia -improved now at 4.8 (08/27) -will continue to monitor Elevated troponin -downtrending -Echo on 08/16 showed EF 55-65% with grade 2 diastolic dysfunction -Previous cath was negative. stress test 06/2019 did not show any myocardial ischemia Elevated BNP -suspected secondary to decreased renal function medication non-compliance History of meth abuse In: 4870 Out: 1575 Net: 3295 Lines: -Levetracetam 440cc/hr -Propofol 22cc/hr -Fentanyl 50mcg/hr -Azithro 250cc/hr -D5 100cc/hr -Dexmedetomidine 3.56cc/hr Supervisory-Addendum Brief Verification & Attestation Participated in pt care: history Personally performed: exam, history Care discussed with: Medical Student Procedures: n/a Verification and Attestation of Medical Student E/M Service A medical student performed and documented this service in my presence. I reviewed and verified all information documented by the medical student and made modifications to such information, when appropriate. I personally performed the physical exam and medical decision making. Ricarda Balderrama, Aug 27, 2019,04:53 GONZALO ANDRADE MEDICAL STUDENT Aug 27, 2019 04:00 RICARDA SALOMON DO Aug 27, 2019 04:40 POS
[2019-08-27] MEDS ORDERED: FUROSEMIDE 40 MG/4 ML INJ (LASIX) IVP ONE (04:45)
[2019-08-27] MEDS: POTASSIUM CL 10MEQ/50ML IVPB 50 ML IV SCH (05:07)
[2019-08-27] MEDS: MAGNESIUM 1 GM/100 ML IVPB 100 ML IV SCH (05:07)
[2019-08-27] MEDS: D5 1/2 NS 1000 ML IV SOLUTION 1,000 ML IV SCH ×3 (05:07→20:03)
[2019-08-27] MEDS: KCL 20 MEQ TAB (K-DUR) PO SCH (05:08)
[2019-08-27] MEDS: CEFEPIME 2,000 MG/SWFI 20 ML IV PUSH IV SCH ×2 (05:22)
[2019-08-27] MEDS: inSUlin ASPART (NovoLOG) 1 UNIT/0.01 ML (CHARGE PER UNIT) SQ SCH ×2 (05:22→12:16)
--- NOTE | 2019-08-27 06:44 | NUR ---
THIS RN SPOKE WITH DR COVINGTON, ATTEMPTING TO WEAN PT OFF VENTILATOR. PT EASILY BECOMES COMBATIVE AND BELLIGERENT. OKAY FROM DR COVINGTON TO EXTUBATE IF PT BECOMES COMBATIVE
--- NOTE | 2019-08-27 07:30 | NUR ---
PATIENT EXTUBATED AT THIS TIME, RT REECE PRESENT AT BEDSIDE. PATIENT FOLLOWING COMMANDS PATIENT ETT ET OG TUBE REMOVED PER ORDERS FROM DR. COVINGTON. PATIENT RESTRAINTS REMOVED. PATIENT PLACED ON OW @ 4L/NC. O2 SATS @ 100%
--- NOTE | 2019-08-27 07:32 | Diagnostic Imaging Report ---
INDICATION: Dyspnea. Comparison made with prior examination of 08/26/2019. FINDINGS: The heart size is normal. Mediastinum is unremarkable. Lungs are clear. No pleural effusion or pneumothorax. The lines and tubes are in satisfactory position. IMPRESSION: Stable appearance of the chest. Dictated by: Dictated on workstation # [id number]
--- NOTE | 2019-08-27 09:36 | Physical Therapy Evaluation ---
PT Evaluation-General Medical Diagnosis Admission Date Aug 26, 2019 at 07:23 Medical Diagnosis: AMS/acute respiratory failure Onset Date: Aug 26, 2019 Therapy Diagnosis Therapy Diagnosis: debility/weakness Height/Weight Height (Feet): 5 Height (Inches): 3.00 Weight (Pounds): 155 Weight (Ounces): 8.0 Precautions Precautions/Isolations: Seizure, Fall Prevention, Standard Precautions Referral Physician: Conchis Reason for Referral: Evaluation/Treatment Medical History Pertinent Medical History: Arthritis, COPD, CVA, GERD, HTN, Renal Insufficiency, Smoking Additional Medical History polysubstance use Current History EMS secondary to found naked at home lethargic, very drowsy, slurred speech, SOA Reviewed History: Yes Social History Home: Apartment Entry Into Home: Level Entry Prior Prior Level of Function SCALE: Activities may be completed with or without assistive devices. 2-Rsxkuufixv-gbgmwla completes the activity by him/herself with no assistance from a helper. 5-Set-up or Clean-up Assistance-helper sets up or cleans up; patient completes activity. [place] assists only prior to or following the activity. 4-Supervision or Touching Assistance-helper provides verbal cues and/or touching/steadying and/or contact guard assistance as patient completes activity. Assistance may be provided throughout the activity or intermittently. 3-Partial/Moderate Assistance-helper does LESS THAN HALF the effort. [place] lifts, holds or supports trunk or limbs, but provides less than half the effort. 2-Substantial/Maximal Assistance-helper does MORE THAN HALF the effort. [place] lifts or holds trunk or limbs and provides more than half the effort. 7-Cwssfdjua-ibuwer does ALL the effort. Patient does none of the effort to complete the activity. Or, the assistance of 2 or more helpers is required for the patient to complete the activity. If activity was not attempted, code reason: 7-Patient Refused. 9-Not Applicable-not attempted and the patient did not perform the activity before the current illness, exacerbation or injury. 10-Not Attempted due to Environmental Limitations-(lack of equipment, weather restraints, etc.). 88-Not Attempted due to Medical Conditions or Safety Concerns. Bed Mobility: 6 Transfers (B,C,W/C): 6 Gait: 6 Indoor Mobility (Ambulation): Independent PT Evaluation-Current Subjective Patient is very agreeable to participate with PT. Pain Numeric Pain Scale: 0-No Pain Location: No Pain Reported Objective Patient Orientation: Person, Time, Situation Problem Solving: Fair Attachments: Oxygen, [place] Catheter, IV ROM/Strength ROM Lower Extremities bilateral LE WFL Strength Lower Extremities 4/5 grossly bilateral LE Integumentary/Posture Integumentary refer to nursing notes Bladder Incontinence: [place] Cath Posture WFL Neuromuscular (Tone, Coordination, Reflexes) ataxic, athetoid movements due to polysubstance use Sensory Vision: Functional Hearing: Functional Sensation Right Lower Extremit: Impaired Sensation Left Lower Extremity: Impaired Transfers Roll Left to Right (QC): 6 Sit to Lying (QC): 6 Lying to Sitting/Side of Bed(Q: 6 Sit to Stand (QC): 4 Chair/Tve-rj-Poqcv Xfer(QC): 4 CGA for safety Gait Does the Patient Walk?: Yes Mode of Locomotion: Walk Anticipated Mode of Locomotion: Walk Distance: 1=up to 49 ft Walk 10 feet (QC): 88 Walk 50 ft with 2 Turns(QC): 88 Walk 150 ft (QC): 88 Distance: 5' Comments/Gait Description PT will utilize FWW Balance Sitting Static: Normal Sitting Dynamic: Normal Standing Static: Fair Standing Dynamic: Fair Assessment/Needs 58 y.o. female, will benefit from skilled PT to address functional strength and mobility to improve current LOF to safely return to home or care facility at maximum LOF. Rehab Potential: Guarded Post Rehab Potential-Barriers: compliance PT Melt House Supervisor Goals Long-Term Goals PT Long-Term Goals Time Frame: Sep 04, 2019 Sit to Lying (QC): 6 Lying-Sitting on Side/Bed(QC): 6 Sit to Stand (QC): 6 Roll Left to Right (QC): 6 Chair/Omt-qa-Zofpm Xfer(QC): 6 Does the Patient Walk: Yes Distance: 200' Walk 10 feet (QC): 6 Walk 10ft-Uneven Surface(QC): 6 Walk 50ft with 2 Turns (QC): 6 Walk 150 ft (QC): 6 Gait Assistive Device: None, FWW PT Plan Problem List Problem List: Activity Tolerance, Safety, Balance Treatment/Plan Treatment Plan: Continue Plan of Care Treatment Plan: Bed Mobility, Education, Functional Activity Bernie, Functional Strength, Gait, Safety, Therapeutic Exercise, Transfers Treatment Duration: Sep 04, 2019 Frequency: 6 times per week Estimated Hrs Per Day: .25 hour per day Patient and/or Family Agrees t: Yes Time/GCodes Time In: 848 Time Out: 859 Total Billed Treatment Time: 11 Total Billed Treatment 1 visit [facility] 11 min ANURAG GENTILE PT Aug 27, 2019 09:36 POS
[2019-08-27] MEDS: AZITHROMYCIN 500 MG/NS 250 ML IVPB IV SCH ×2 (10:25)
[2019-08-27] MEDS: LEVETIRACETAM INJECTION 1,000 MG in NS (IVPB) 100 ML IV SCH ×2 (10:25→20:04)
[2019-08-27] MEDS: ASPIRIN 81 MG CHEW (CHILDREN'S ASA) PO SCH (10:26)
--- NOTE | 2019-08-27 11:25 | Progress Note ---
Subjective Subjective/Events-last exam Seen at 0515. Afebrile, blood gas much improved this am. Focused Exam Lactate Level 08/26/19 04:25: Lactic Acid Level 0.69 08/26/19 10:12: Lactic Acid Level 2.26*H 08/26/19 14:20: Lactic Acid Level 1.87 Objective Exam Last Set of Vital Signs Vital Signs Date Time Temp Pulse Resp B/P (MAP) Pulse Ox O2 Delivery O2 Flow Rate FiO2 08/27/19 10:30 Nasal Cannula 2.00 08/27/19 10:16 99 08/27/19 06:50 56 22 35 08/27/19 06:00 124/66 (85) 08/27/19 04:00 36.0 Capillary Refill : Less Than 3 Seconds I&O Intake and Output 08/27/19 00:00 Intake Total 4870 ml Output Total 1575 ml Balance 3295 ml Intake IV Total 4870 ml Output Urine Total 1575 ml Daily Weight Change No General: Other (intubated, sedated) HEENT: Atraumatic Lungs: Clear to Auscultation, Normal Air Movement Heart: Regular Rate, No Murmurs Abdomen: Normal Bowel Sounds, Soft, No Tenderness Extremities: No Edema Neuro: Normal Speech Results/Procedures Lab Laboratory Tests 08/26/19 14:20: Lactic Acid Level 1.87, Troponin I 0.054H 08/26/19 17:32: Glucometer 106 08/26/19 17:45: Blood Gas Puncture Site RT RADIAL, Blood Gas Patient Temperature 36.1, Arterial Blood pH 7.26*L, Arterial Blood Partial Pressure CO2 44, Arterial Blood Partial Pressure O2 47L, Arterial Blood HCO3 19L, Arterial Blood Total CO2 20.5L, Arterial Blood Oxygen Saturation 80L, Arterial Blood Base Excess -6.9L, Dominguez Test POS, Blood Gas Ventilator Setting YES, Blood Gas Inspired Oxygen 40% 08/26/19 20:37: Troponin I 0.035H 08/26/19 23:22: Glucometer 107 08/27/19 03:02: White Blood Count 6.2, Red Blood Count 3.20L, Hemoglobin 9.4L, Hematocrit 29L, Mean Corpuscular Volume 92, Mean Corpuscular Hemoglobin 29, Mean Corpuscular Hemoglobin Concent 32, Red Cell Distribution Width 14.9H, Platelet Count 318, Mean Platelet Volume 9.8, Neutrophils (%) (Auto) 66, Lymphocytes (%) (Auto) 27, Monocytes (%) (Auto) 6, Eosinophils (%) (Auto) 2, Basophils (%) (Auto) 0, Neutrophils # (Auto) 4.0, Lymphocytes # (Auto) 1.7, Monocytes # (Auto) 0.3, Eosinophils # (Auto) 0.1, Basophils # (Auto) 0.0, Sodium Level 140, Potassium Level 4.8, Chloride Level 110H, Carbon Dioxide Level 19L, Anion Gap 11, Blood Urea Nitrogen 43H, Creatinine 1.28, Estimat Glomerular Filtration Rate 43, BUN/Creatinine Ratio 34, Glucose Level 103, Calcium Level 8.1L, Corrected Calcium 8.7, Phosphorus Level 5.7H, Magnesium Level 1.9, Total Bilirubin 0.2, Aspartate Amino Transf (AST/SGOT) 11, Alanine Aminotransferase (ALT/SGPT) 14, Alkaline Phosphatase 65, Ammonia 26, Total Protein 5.9L, Albumin 3.3 08/27/19 03:47: Blood Gas Puncture Site RIGHT RADIAL, Blood Gas Patient Temperature 36.0, Arterial Blood pH 7.38, Arterial Blood Partial Pressure CO2 36, Arterial Blood Partial Pressure O2 113H, Arterial Blood HCO3 21L, Arterial Blood Total CO2 22.2, Arterial Blood Oxygen Saturation 98, Arterial Blood Base Excess -3.4L, Dominguez Test YES-POS, Blood Gas Ventilator Setting YES, Blood Gas Inspired Oxygen 35% Microbiology 08/26/19 Influenza Types A,B Antigen (JOHANA) - Final, Complete Radiology CT head and neck 08/26/19: IMPRESSION: 1. No acute intracranial process. CT cervical spine: 1. Chronic change. No acute osseous abnormality. Pertinent findings agree with the preliminary report. CXR 08/26/19: IMPRESSION: Pulmonary vascular congestion versus bilateral perihilar infiltrate correlate with symptoms. Assessment/Plan Assessment/Plan (1) Acute on chronic respiratory failure with hypoxia Status: Acute Assessment & Plan: Management per Dr. Balderrama, appreciate recommendations. (2) Altered mental status Status: Acute Assessment & Plan: Uncertain etiology. UDS positive for only barbiturates, she does have history of substance use in past. Carboxyhemoglobin normal. Ammonia elevated. CT head okay. (3) Increased ammonia level Status: Acute Assessment & Plan: May contribute to AMS, monitor. (4) Hyperphosphatemia Status: Acute Assessment & Plan: IVF, recheck (5) Anemia Status: Chronic Assessment & Plan: Iron studies in 2013 with no evidence of iron deficiency. Stable. Qualifiers: (6) Seizure disorder Status: Chronic Assessment & Plan: Phenobarbital level pending. No noted seizure activity since arrival. (7) Pneumonia Status: Acute Assessment & Plan: Possible bilateral perihilar infiltrate. Cefepime and azithromycin. Qualifiers: (8) Elevated troponin Status: Acute Assessment & Plan: Suspect due to hypoxia and CKD, has had chronic elevations in past, monitor. Trending down. (9) Hyperkalemia Status: Resolved Assessment & Plan: Improving with IVF. Monitor. (10) Chronic renal failure Status: Chronic Assessment & Plan: Stable, monitor. (11) DVT prophylaxis Status: Acute Assessment & Plan: Enoxaparin. Clinical Quality Measures DVT/VTE Risk/Contraindication: Risk Factor Score Per Nursin RFS Level Per Nursing on Admit: 4+=Very High MATTHEW DAVID MD Aug 27, 2019 11:25 POS
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
--- NOTE | 2019-08-27 14:46 | NUR ---
"RD ASSESSMENT PMHx: Extensive PMHx including - Hep-C; HTN; CKD; non-compliance; DM; polysubstance use (methamphetamine; Tobacco) PT INTERACTION: Pt was awake and pleasant during nutrition assessment. Note pt has AMS, per chart review. Pt states current appetite is pretty good. Pt states following a regular diet at home, and is currently missing front teeth. Pt states some recent issues with n/v at this time. Pt states recent episodes of diarrhea, but could not state when last BM was. Note no BM has been recorded and pt not currently on bowel regimen, per chart review. Pt states no recent wt changes. Note unable to determine recent wt hx, per chart review. Upon visual exam, pt appears to be well nourished with no visible signs of muscle/fat wasting and a BMI of 30.5. ABNORMAL NUTRITION-RELATED LAB VALUES: Cl 110 (H); BUN 43 (H); phos 5.7 (H); Ca 8.1 (L); Pro 5.9 (L) Est. kcal needs: 7589-2359 kcal | 20-25 kcal/kg Est. Pro needs: 78-94 g Pro | 1.0-1.2 g Pro/kg PES STATEMENT: Inadequate oral intake (NI-2.1) related to nausea | vomiting | loss of appetite as evidenced pt interview INTERVENTION: Continue with current diet order of CHO 60g/m 1 snack diet. Pt may benefit from nutrition supplementation if PO intake declines. MONITOR/EVALUATE: PO Intake; Plan of Care; Hydration Status; Weight Status; Lab Values Prakash Barrera, MS, RD, LD"
[2019-08-27] MEDS: ENOXAPARIN 40 MG/0.4 ML (LOVENOX) SYR SQ SCH (15:09)
[2019-08-27] MEDS: fentaNYL INJECTION 100 MCG/2 ML AMP IVP PRN ×2 (15:10→20:04)
--- NOTE | 2019-08-27 16:50 | NUR ---
REPORT CALLED TO YARIEL BORDEN, TO ASSUME CARE OF PATIENT. PATIENT TRANSFERRED DOWN TO ROOM 430 WITHOUT INCIDENT. PERSONAL BELONGINGS SENT WITH PATIENT.
--- NOTE | 2019-08-27 17:19 | NUR ---
Pt was re-admitted on 08/26 after being discharged on 08/17. She left the hospital prior to completing her home oxygen study. [facility] and according to pt she did complete the sturdy and paper work was completed. She states that she was supposed to obtain the home oxygen from a Durable Medical equipment provider from [place] but it was never delivered. Attempting to contact her paid caregiver Nevin if she had any more information. Pt now states that she wants [employer] to be her provider. [employer] hope to complete home oxygen study prior to her discharge and make arrangement for home oxygen in place on date of discharge. Will follow.
--- NOTE | 2019-08-27 17:34 | NUR ---
REPORT FROM YARIEL DAUGHERTY. PT TO ROOM 430 VIA CHAIR. WILL ASSUME CARE OF PATIENT AT THIS TIME
[2019-08-27] MEDS: FAMOTIDINE 20MG/2ML IV (PEPCID) IV SCH (20:04)
[2019-08-28 00:17] VITALS: BP 172/88
[2019-08-28] MEDS: RT-ALBUTEROL/IPRATROPIUM 3 ML (DUONEB) VIAL INH SCH ×4 (03:01→19:28)
--- NOTE | 2019-08-28 03:15 | NUR ---
CONTACTED DR. MISTRY ABOUT PT BLOOD PRESSURE 210/98 WITH PULSE OF 96. NEW ORDERS FOR AMLODIPINE 10 MG X1 NOW AND QHS AND LOSARTAN 100 MG X1 NOW AND QHS.
[2019-08-28 03:20] VITALS: BP 210/98
[2019-08-28] MEDS: fentaNYL INJECTION 100 MCG/2 ML AMP IVP PRN ×4 (03:25→20:05)
[2019-08-28] MEDS ORDERED: LOSARTAN 100 MG (COZAAR) TABLET PO ONE (03:30)
[2019-08-28] MEDS ORDERED: amLODIPine 10 MG (NORVASC) TAB PO ONE (03:30)
[2019-08-28 04:41] LABS: CALCIUM 8.7 MG/DL (8.5-10.1); CREATININE SERUM 1.26 MG/DL (0.60-1.30); MAGNESIUM 2.2 MG/DL (1.6-2.4); PHOSPHORUS 5.7 MG/DL (2.3-4.7); POTASSIUM 4.6 MMOL/L (3.6-5.0)
[2019-08-28] MEDS: MAGNESIUM 1 GM/100 ML IVPB 100 ML IV SCH (05:08)
[2019-08-28] MEDS: POTASSIUM CL 10MEQ/50ML IVPB 50 ML IV SCH (05:08)
[2019-08-28] MEDS: KCL 20 MEQ TAB (K-DUR) PO SCH (05:09)
[2019-08-28] MEDS ORDERED: CEFEPIME 2 GM (MAXIPIME) VIAL ONE (05:11)
[2019-08-28] MEDS ORDERED: WATER (STERILE) FOR INJECTION 20 ML ONE (05:11)
[2019-08-28] MEDS: D5 1/2 NS 1000 ML IV SOLUTION 1,000 ML IV SCH (05:16)
[2019-08-28] MEDS: CEFEPIME 2,000 MG/SWFI 20 ML IV PUSH IV SCH ×2 (05:16)
--- NOTE | 2019-08-28 07:39 | Diagnostic Imaging Report ---
Indication: Shortness of breath Portable chest 4:29 AM Right IJ central line tip projects over the SVC. Heart size and pulmonary vascularity are normal. Lungs are clear. There are no effusions or pneumothoraces. IMPRESSION: No acute abnormalities in the chest Dictated by: Dictated on workstation # [id number]
--- NOTE | 2019-08-28 07:45 | Pulmonary Progress Note ---
Subjective Time Seen by a Provider: 05:55 Subjective/Events-last exam Pt is doing much better. Sepsis Event Evaluation Height, Weight, BMI Height: 5'3.00" Weight: 155lbs. 8.0oz. 70.416077rf; 27.00 BMI Method:Stated Focused Exam Lactate Level 08/26/19 04:25: Lactic Acid Level 0.69 08/26/19 10:12: Lactic Acid Level 2.26*H 08/26/19 14:20: Lactic Acid Level 1.87 Exam Exam Vital Signs Date Time Temp Pulse Resp B/P (MAP) Pulse Ox O2 Delivery O2 Flow Rate FiO2 08/28/19 03:20 96 210/98 (135) 08/28/19 03:01 96 Room Air 08/28/19 00:17 37.1 89 23 172/88 (116) 97 Nasal Cannula 0.50 08/27/19 22:00 37.2 91 98 28 08/27/19 20:59 Nasal Cannula 2.00 08/27/19 20:42 37.2 91 18 153/81 (105) 95 Nasal Cannula 1.00 08/27/19 19:44 98 Nasal Cannula 1.50 08/27/19 17:32 177/97 (123) 08/27/19 17:29 36.9 94 20 184/104 (130) 97 Nasal Cannula 2.00 08/27/19 16:00 36.4 08/27/19 14:28 96 Nasal Cannula 2.00 08/27/19 12:00 36.5 08/27/19 10:30 Nasal Cannula 2.00 08/27/19 10:16 99 Nasal Cannula 4.00 08/27/19 10:00 77 12 97 Nasal Cannula 4.00 08/27/19 09:00 78 12 136/79 (98) 98 Nasal Cannula 4.00 08/27/19 08:00 70 12 148/79 (102) 100 Nasal Cannula 4.00 I & O 08/28/19 07:00 Intake Total 5530 ml Output Total 8225 ml Balance -2695 ml Height & Weight Height: 5'3.00" Weight: 155lbs. 8.0oz. 70.718258je; 27.00 BMI Method:Stated General Appearance: No Apparent Distress, WD/WN HEENT: PERRL/EOMI, Pharynx Normal Neck: Supple; No Carotid Bruit, No JVD Respiratory: Normal Breath Sounds, No Accessory Muscle Use, No Respiratory Distress, Decreased Breath Sounds Cardiovascular: Regular Rate, Rhythm, No Edema, No JVD, Normal Peripheral Pulses, Systolic Murmur (3/6 ), Gallop/S3 Capillary Refill: Less Than 3 Seconds Gastrointestinal: normal bowel sounds, non tender, soft Extremity: No Pedal Edema Neurologic/Psychiatric: Other (MENTATION ABOVE. MOVES ALL EXTREMITIES. TOO LETHARGIC TO FOLLOW COMMANDS ) Skin: Normal Color, Warm/Dry Results Lab Laboratory Tests 08/26/19 10:12 08/27/19 03:02 08/28/19 04:06 Assessment/Plan Assessment/Plan Acute respiratory failure secondary to lethargy - improved. -Pt is doing well off vent AMS -head CT negative HTN -restart home meds -Hydralazine PRN medication non-compliance History of meth abuse RICARDA COVINGTON DO Aug 28, 2019 07:45 POS
[2019-08-28 08:00] VITALS: BP 225/141
[2019-08-28] MEDS: LEVETIRACETAM INJECTION 1,000 MG in NS (IVPB) 100 ML IV SCH ×2 (08:26→20:06)
[2019-08-28] MEDS: hydrALAZINE (APESOLINE) 20 MG/ML VIAL IV PRN ×2 (08:27→20:21)
[2019-08-28] MEDS: cloNIDine 0.2 MG (CATAPRES) TAB PO SCH ×2 (08:27→20:05)
[2019-08-28] MEDS: LORATADINE (CLARITIN) 10 MG TAB PO SCH (08:27)
[2019-08-28] MEDS: meTOprolol SUCCINATE 100 MG (TOPROL XL) TAB PO SCH (08:27)
[2019-08-28] MEDS: ASPIRIN 81 MG CHEW (CHILDREN'S ASA) PO SCH (08:27)
[2019-08-28] MEDS: AZITHROMYCIN 500 MG/NS 250 ML IVPB IV SCH ×2 (08:29)
--- NOTE | 2019-08-28 09:28 | Physical Therapy Daily Note ---
PT Daily Note-Current Subjective Patient's BP has been elevated, RN present issuing BP medication. Patient agrees to PT. Mental Status Patient Orientation: Person, Time, Situation Attachments: IV Transfers SCALE: Activities may be completed with or without assistive devices. 1-Dbhmksbolt-qjfuykt completes the activity by him/herself with no assistance from a helper. 5-Set-up or Clean-up Assistance-helper sets up or cleans up; patient completes activity. [place] assists only prior to or following the activity. 4-Supervision or Touching Assistance-helper provides verbal cues and/or touching/steadying and/or contact guard assistance as patient completes activity. Assistance may be provided throughout the activity or intermittently. 3-Partial/Moderate Assistance-helper does LESS THAN HALF the effort. [place] lifts, holds or supports trunk or limbs, but provides less than half the effort. 2-Substantial/Maximal Assistance-helper does MORE THAN HALF the effort. [place] lifts or holds trunk or limbs and provides more than half the effort. 6-Npzbjahcv-lwinld does ALL the effort. Patient does none of the effort to complete the activity. Or, the assistance of 2 or more helpers is required for the patient to complete the activity. If activity was not attempted, code reason: 7-Patient Refused. 9-Not Applicable-not attempted and the patient did not perform the activity before the current illness, exacerbation or injury. 10-Not Attempted due to Environmental Limitations-(lack of equipment, weather restraints, etc.). 88-Not Attempted due to Medical Conditions or Safety Concerns. Roll Left to Right (QC): 5 Sit to Lying (QC): 5 Sit to Stand (QC): 4 Gait Training Does the Patient Walk?: Yes Distance: 400' Walk 10 feet (QC): 4 Walk 50 ft with 2 Turns(QC): 4 Walk 150 ft (QC): 4 Gait Assistive Device: FWW steady functional gait sequence Assessment During ambulation, patient began to have a TRIMBLE. At the doorway to her room (end of ambulation), patient doubled over in pain grabbing her head requiring dependent assistance to return to chair to bed with RN notified. Vitals taken (refer to nursing notes). Patient appeared to be having a seizure per RN. Patient in bed with 4 rails up and nursing present. Patient had recovered. PT Director Investor Relations Goals Halfway Goals PT Director Investor Relations Goals Time Frame: Sep 04, 2019 Sit to Lying (QC): 6 Lying-Sitting on Side/Bed(QC): 6 Sit to Stand (QC): 6 Roll Left to Right (QC): 6 Chair/Xzb-ia-Ecmdm Xfer(QC): 6 Does the Patient Walk: Yes Distance: 200' Walk 10 feet (QC): 6 Walk 10ft-Uneven Surface(QC): 6 Walk 50ft with 2 Turns (QC): 6 Walk 150 ft (QC): 6 Gait Assistive Device: None, FWW PT Plan Treatment/Plan Treatment Plan: Continue Plan of Care Treatment Plan: Bed Mobility, Education, Functional Activity Bernie, Functional Strength, Gait, Safety, Therapeutic Exercise, Transfers Treatment Duration: Sep 04, 2019 Frequency: 6 times per week Estimated Hrs Per Day: .25 hour per day Patient and/or Family Agrees t: Yes Time/GCodes Time In: 825 Time Out: 848 Total Billed Treatment Time: 23 Total Billed Treatment 1 visit FA x 2 23 min ANURAG GENTILE PT Aug 28, 2019 09:28 POS
[2019-08-28] MEDS ORDERED: ONDANSETRON 4 MG/2 ML (SDV) Z0FRAN IVP PRN (10:00)
--- NOTE | 2019-08-28 10:10 | Progress Note - Hospitalist ---
Subjective HPI/CC On Admission Time Seen by Provider: 10:05 Subjective/Events-last exam patient reports severe left-sided headache with photo She does report a past history of m She denies any numbness or weakness. She has history of hypertension and her blood pressure was 220/80 per staff.she denies chest pain or shortness of breath. Focused Exam Lactate Level 08/26/19 04:25: Lactic Acid Level 0.69 08/26/19 10:12: Lactic Acid Level 2.26*H 08/26/19 14:20: Lactic Acid Level 1.87 Objective Exam Vital Signs Vital Signs Date Time Temp Pulse Resp B/P (MAP) Pulse Ox O2 Delivery O2 Flow Rate FiO2 08/28/19 09:39 98 Nasal Cannula 2.00 08/28/19 07:00 95 08/28/19 03:20 210/98 (135) 08/28/19 00:17 37.1 23 08/27/19 22:00 28 Capillary Refill : Less Than 3 Seconds General Appearance: Mild Distress Respiratory: No Accessory Muscle Use, No Respiratory Distress, Other (a few scattered rhonchi noted no wheezing) Cardiovascular: Regular Rate, Rhythm, No Edema, No Gallop, No JVD, No Murmur, Normal Peripheral Pulses Neurologic/Psychiatric: Alert Skin: Normal Color, Warm/Dry Results/Procedures Lab Laboratory Tests 08/28/19 04:06 Patient resulted labs reviewed. Assessment/Plan Assessment and Plan Assess & Plan/Chief Complaint 1. Acute migraine likely driving severe blood pressure elevation will give a dose of fentanyl and Zofran. Continue to monitor blood pressure. 2. Respiratory failure resolved appeared to be secondary to hypovention question possibility of barbiturates or other respiratory depressant overdose. Clinical Quality Measures DVT/VTE Risk/Contraindication: Risk Factor Score Per Nursin RFS Level Per Nursing on Admit: 4+=Very High DOMITILA MISTRY MD Aug 28, 2019 10:10 POS
[2019-08-28] MEDS: ENOXAPARIN 40 MG/0.4 ML (LOVENOX) SYR SQ SCH (12:19)
[2019-08-28 13:55] VITALS: BP 151/83
[2019-08-28 16:00] VITALS: BP 134/91
[2019-08-28 20:00] VITALS: BP 178/102
[2019-08-28] MEDS: FAMOTIDINE 20MG/2ML IV (PEPCID) IV SCH (20:05)
[2019-08-28] MEDS ORDERED: LOSARTAN 100 MG (COZAAR) TABLET PO SCH (21:00)
[2019-08-28] MEDS ORDERED: amLODIPine 10 MG (NORVASC) TAB PO SCH (21:00)
[2019-08-29 00:14] VITALS: BP 165/81
[2019-08-29] MEDS: fentaNYL INJECTION 100 MCG/2 ML AMP IVP PRN ×2 (00:19→08:22)
[2019-08-29 04:00] VITALS: BP 131/66
[2019-08-29 04:37] LABS: CALCIUM 9.2 MG/DL (8.5-10.1); CREATININE SERUM 1.2 MG/DL (0.60-1.30); PHOSPHORUS 4.5 MG/DL (2.3-4.7); POTASSIUM 4.7 MMOL/L (3.6-5.0)
[2019-08-29] MEDS: POTASSIUM CL 10MEQ/50ML IVPB 50 ML IV SCH (05:40)
[2019-08-29] MEDS: KCL 20 MEQ TAB (K-DUR) PO SCH (05:40)
[2019-08-29] MEDS ORDERED: WATER (STERILE) FOR INJECTION 20 ML ONE (05:40)
[2019-08-29] MEDS: MAGNESIUM 1 GM/100 ML IVPB 100 ML IV SCH (05:40)
[2019-08-29] MEDS ORDERED: CEFEPIME 2 GM (MAXIPIME) VIAL ONE (05:40)
[2019-08-29] MEDS: CEFEPIME 2,000 MG/SWFI 20 ML IV PUSH IV SCH ×2 (05:44)
--- NOTE | 2019-08-29 06:02 | Pulmonary Progress Note ---
Subjective Time Seen by a Provider: 05:58 Subjective/Events-last exam Pt is doing much better. Sepsis Event Evaluation Height, Weight, BMI Height: 5'3.00" Weight: 155lbs. 8.0oz. 70.530931ku; 27.00 BMI Method:Stated Focused Exam Lactate Level 08/26/19 10:12: Lactic Acid Level 2.26*H 08/26/19 14:20: Lactic Acid Level 1.87 Exam Exam Vital Signs Date Time Temp Pulse Resp B/P (MAP) Pulse Ox O2 Delivery O2 Flow Rate FiO2 08/29/19 02:40 90 08/29/19 01:00 91 08/29/19 00:14 36.2 69 19 165/81 (109) 97 Room Air 08/28/19 21:00 Nasal Cannula 2.00 08/28/19 20:00 36.6 72 18 178/102 (127) 98 Room Air 08/28/19 19:39 86 08/28/19 19:28 98 Nasal Cannula 0.00 08/28/19 16:00 36.6 78 20 134/91 (105) 97 Room Air 08/28/19 15:46 98 Nasal Cannula 2.00 08/28/19 13:55 87 151/83 (105) Room Air 08/28/19 12:13 76 08/28/19 09:39 98 Nasal Cannula 2.00 08/28/19 09:00 Room Air 08/28/19 08:00 36.5 96 22 225/141 (169) 94 Room Air 08/28/19 07:00 95 I & O 08/29/19 07:00 Intake Total 2310 ml Output Total 1300 ml Balance 1010 ml Height & Weight Height: 5'3.00" Weight: 155lbs. 8.0oz. 70.286779py; 27.00 BMI Method:Stated General Appearance: No Apparent Distress, WD/WN HEENT: PERRL/EOMI, Pharynx Normal Neck: Supple; No Carotid Bruit, No JVD Respiratory: Normal Breath Sounds, No Accessory Muscle Use, No Respiratory Distress, Decreased Breath Sounds Cardiovascular: Regular Rate, Rhythm, No Edema, No JVD, Normal Peripheral Pulses, Systolic Murmur (3/6 ), Gallop/S3 Capillary Refill: Less Than 3 Seconds Gastrointestinal: normal bowel sounds, non tender, soft Extremity: No Pedal Edema Neurologic/Psychiatric: Other (MENTATION ABOVE. MOVES ALL EXTREMITIES. TOO LETHARGIC TO FOLLOW COMMANDS ) Skin: Normal Color, Warm/Dry Results Lab Laboratory Tests 08/28/19 04:06 08/29/19 03:52 Assessment/Plan Assessment/Plan Acute respiratory failure secondary to lethargy -resolved -Pt is doing well off vent -D/C abx AMS -head CT negative HTN medication non-compliance History of meth abuse Pt is ok for discharge from pulmonary standpoint. I am going to sign off. Please call with any questions. RICARDA COVINGTON DO Aug 29, 2019 06:01 POS
[2019-08-29] MEDS: RT-ALBUTEROL/IPRATROPIUM 3 ML (DUONEB) VIAL INH SCH (07:14)
--- NOTE | 2019-08-29 07:23 | Diagnostic Imaging Report ---
INDICATION: Dyspnea. COMPARISON: 08/28/2019. FINDINGS: Single frontal view of the chest demonstrates normal heart size and pulmonary vascularity. The lungs are well aerated and clear. No large pleural effusion or pneumothorax is seen. The visualized osseous structures show no acute abnormalities. Right internal jugular central venous catheter is again identified with tip in the SVC. IMPRESSION: 1. No acute cardiopulmonary process. Dictated by: Dictated on workstation # [id number]
[2019-08-29 08:00] VITALS: BP 186/108
[2019-08-29] MEDS: ASPIRIN 81 MG CHEW (CHILDREN'S ASA) PO SCH (08:19)
[2019-08-29] MEDS: LORATADINE (CLARITIN) 10 MG TAB PO SCH (08:20)
[2019-08-29] MEDS: meTOprolol SUCCINATE 100 MG (TOPROL XL) TAB PO SCH (08:20)
[2019-08-29] MEDS: ENOXAPARIN 40 MG/0.4 ML (LOVENOX) SYR SQ SCH (08:21)
[2019-08-29] MEDS: hydrALAZINE (APESOLINE) 20 MG/ML VIAL IV PRN (08:23)
[2019-08-29] MEDS: LEVETIRACETAM INJECTION 1,000 MG in NS (IVPB) 100 ML IV SCH (08:23)
[2019-08-29] MEDS: cloNIDine 0.2 MG (CATAPRES) TAB PO SCH (08:24)
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
[2019-08-29 12:00] VITALS: BP 122/76
[2019-08-29 13:42] VITALS: BP 122/76
== END 2019-08-29 13:46 | disposition home or self-care (01) | DRG 208 ==
LOC: EDUNIT# 03:45 → ER 03:46 → ICU 07:23 → 4TH 08-27 16:48
PROVIDERS: ADMIT Family Medicine; ATTEND Family Medicine
PROC: 5A1945Z Respiratory Ventilation, 24-96 Consecutive Hours (ICD-10-PCS; principal; 2019-08-26)
PROC: 0BH17EZ Insertion of Endotracheal Airway into Trachea, Via Natural or Artificial Opening (ICD-10-PCS; 2019-08-26)
DX: J96.21 Acute and chronic respiratory failure with hypoxia (principal); J18.9 Pneumonia, unspecified organism; R41.82 Altered mental status, unspecified; I42.8 Other cardiomyopathies; E87.2 Acidosis; I13.0 Hypertensive heart and chronic kidney disease with heart failure and stage 1 through stage 4 chronic kidney disease, or unspecified chronic kidney disease; N18.9 Chronic kidney disease, unspecified; I50.9 Heart failure, unspecified; I69.354 Hemiplegia and hemiparesis following cerebral infarction affecting left non-dominant side; E87.5 Hyperkalemia; F15.10 Other stimulant abuse, uncomplicated; D63.8 Anemia in other chronic diseases classified elsewhere; I25.10 Atherosclerotic heart disease of native coronary artery without angina pectoris; I25.2 Old myocardial infarction; E11.51 Type 2 diabetes mellitus with diabetic peripheral angiopathy without gangrene; J44.9 Chronic obstructive pulmonary disease, unspecified; I95.9 Hypotension, unspecified; R79.89 Other specified abnormal findings of blood chemistry; G40.909 Epilepsy, unspecified, not intractable, without status epilepticus; F17.210 Nicotine dependence, cigarettes, uncomplicated; I34.0 Nonrheumatic mitral (valve) insufficiency; K21.9 Gastro-esophageal reflux disease without esophagitis; F41.9 Anxiety disorder, unspecified; F31.9 Bipolar disorder, unspecified; B19.20 Unspecified viral hepatitis C without hepatic coma; N32.81 Overactive bladder; E83.39 Other disorders of phosphorus metabolism; G43.909 Migraine, unspecified, not intractable, without status migrainosus; Z99.81 Dependence on supplemental oxygen; T43.595A Adverse effect of other antipsychotics and neuroleptics, initial encounter
CPT/HCPCS: 36415; 36600; 51702; 70450; 71045; 72125; 80048; 80053; 80184; 80306; 80320; 80329; 81000; 82140; 82375; 82550; 82553; 82805; 82962; 83605; 83735; 83874; 83880; 84100; 84484; 85007; 85025; 85027; 85610; 85730; 87040; 87070; 87081; 87205; 87804; 93005; 93041; 94002; 94003; 94640; 94760; 94799; 96361; 96365; 96375

== ENCOUNTER 2019-09-14 07:33 | Inpatient (IN) | payer MEDICAID ==
[2019-09-14] VITALS (13 sets, daily range): BP systolic 107–194; BP diastolic 74–109
[~2019-09-14] VITALS: Ht 162 cm; Wt 85.4 kg
[~2019-09-14 07:33] MED LIST changes: -ACET-77 PO; +ACET-78 PO; -METO-370; -METO-395 PO; +METO50TA7; -MORP-34; +MORP-69; -RANI-515 PO; +RANI-609 PO
[2019-09-14] MEDS ORDERED: NALOXONE 2 MG/2 ML (NARCAN) SYR IV ONE (07:45)
[2019-09-14 08:04] LABS: ABG BASE EXCESS -3.7 MMOL/L (-2.5-2.5); ABG OXYGEN SATURATION 95 % (94-100); ABG PCO2 41 MMHG (35-45); ABG PO2 74 MMHG (79-93); ABG TCO2 22.6 MMOL/L (21.0-31.0)
[2019-09-14 08:09] LABS: ABG PH 7.33 (7.37-7.43); ALLENS TEST YES-POS; INSPIRED O2 RA; PATIENT TEMP 36.7; VENTILATOR NO
--- NOTE | 2019-09-14 08:09 | NUR ---
7.[address] GARZA NOTIFIED
--- NOTE | 2019-09-14 08:15 | ED General ---
General Chief Complaint: Neurological Problems Stated Complaint: SEIZURE Nursing Triage Note: PT TO [facility] WITH CC OF WITNESSED SEIZURE FOR ABOUT 7 MIN. PT HAS HX OF SEIZURES. Nursing Sepsis Screen: No Definite Risk Source of Information: EMS History of Present Illness Date Seen by Provider: Sep 14, 2019 Time Seen by Provider: 07:50 Initial Comments 58-year-old female brought in due to seizure. Patient had a witnessed seizure for approximately 7 minutes. Patient has a known history of seizures. The patient is not 6 L home oxygen. No other history available as patient is postictal Allergies and Home Medications Allergies Coded Allergies: nitrous oxide (Verified Allergy, Unknown, 06/08/07) Home Medications Acetaminophen 500 Mg Tablet, 1,000 MG PO Q6H PRN for PAIN-MILD, (Reported) Amlodipine Besylate 10 Mg Tablet, 10 MG PO DAILY, (Reported) LAST FILLED #30 07-05-19 Aspirin 81 Mg Tab.chew, 81 MG PO DAILY, (Reported) Clonidine HCl 0.2 Mg Tablet, 0.4 MG PO BID, (Reported) TAKES 2 (0.2MG) TABLETS Cyclobenzaprine HCl 10 Mg Tablet, 10 MG PO TID PRN for MUSCLE SPASMS, (Reported) Hydralazine HCl 50 Mg Tablet, 50 MG PO TID, (Reported) Levetiracetam 500 Mg Tablet, 500 MG PO BID, (Reported) Loratadine 10 Mg Tablet, 10 MG PO DAILY, (Reported) Losartan Potassium 100 Mg Tablet, 100 MG PO DAILY, (Reported) Metoprolol Succinate 100 Mg Tab.er.24h, 100 MG PO DAILY, (Reported) Oxcarbazepine 600 Mg Tablet, 600 MG PO BID, (Reported) Prazosin HCl 1 Mg Capsule, 1 MG PO HS, (Reported) Ranitidine HCl 150 Mg Tablet, 150 MG PO HS, (Reported) Spironolactone 25 Mg Tablet, 25 MG PO DAILY, (Reported) Patient Home Medication List Home Medication List Reviewed: Yes Review of Systems Review of Systems Constitutional: see HPI Review of systems Limited based on patient post ictal Past Mqaypyr-Fgmiew-Tdgzmg Hx Past Med/Social Hx: Reviewed Nursing Past Med/Soc Hx Patient Social History Alcohol Use: Denies Use Recreational 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) Drug of Choice: + IV METH USE, THC USE Type Used: Cigarettes 2nd Hand Smoke Exposure: Yes Recent Foreign Travel: No Contact w/Someone Who Travel: No Recent Infectious Disease Expo: No Recent Hopitalizations: No Physical Abuse: No Sexual Abuse: No Mistreated: No Fear: No Immunizations Up To Date Tetanus Booster (TDap): Less than 5yrs PED Vaccines UTD: No Date of Pneumonia Vaccine: Jul 13, 2012 Date of Influenza Vaccine: Aug 13, 2019 Seasonal Allergies Seasonal Allergies: No Past Medical History Surgeries: Yes Abdominal, Adenoidectomy, Cardiac, Section, Hysterectomy, Oophorectomy, Tonsillectomy Respiratory: Yes COPD Currently Using CPAP: No Currently Using BIPAP: No Cardiac: Yes Cardiomyopathy, Coronary Artery Disease, Endocarditis, Heart Attack, Hypertension, Peripheral Vascular, Valvular Heart Disease Neurological: Yes Concussion, Seizure Disorder, Stroke, Traumatic Brain Injury 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 Disorders: No Female 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, 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 Sexually Transmitted Disease: No HIV/AIDS: No Genitourinary: Yes Kidney Infection, Bladder Infection, Kidney Stones, Renal Failure, UTI-Chronic Gastrointestinal: Yes Abdominal Hernia, Gastroesophageal Reflux, Pancreatitis, Hepatitis Musculoskeletal: Yes (CHRONIC NECK AND BACK PAIN; POOR AMBULATION) Arthritis, Chronic Back Pain Endocrine: Yes (HGB AIC WAS 6.5 ON 12/23/18) Diabetes, Non-Insulin dep HEENT: Yes (POOR DENTITION) Loss of Vision: Denies Hearing Impairment: Denies Cancer: No Cervical Psychosocial: Yes (EXTENSIVE POLYSUBSTANCE ABUSE) Anxiety, Bipolar, Depression Integumentary: No Blood Disorders: Yes (ANEMIA OF CHRONIC DISEASE) Adverse Reaction/Blood Tranf: No Family Medical History Abdominal aortic aneurysm 03 FATHER Alcoholism 03 FATHER 03 MOTHER 09 SISTER 09 SISTER Cancer 03 FATHER Cataract 03 FATHER 03 MOTHER Chest pain 03 MOTHER Family history: Diabetes mellitus 03 MOTHER Family history: Hypertension 03 MOTHER Family history: Thyroid disorder 03 MOTHER Headache 09 SISTER Heart disease 03 MOTHER History of drug abuse 03 FATHER 09 SISTER Myocardial infarction 03 MOTHER No Family History of: Isael's disease Aphasia Cancer of colon Congenital heart disease Congestive heart failure Cystic fibrosis Dementia Dysphagia Family history: Allergy Family history: Alzheimer's disease Family history: Arthritis Family history: Asthma Family history: Breast disease Family history: Cardiovascular disease Family history: Coronary thrombosis Family history: Gastrointestinal disease Family history: Glaucoma Family history: Osteoporosis Hearing loss Hereditary disease History of - anemia History of - disorder History of - respiratory disease Human immunodeficiency virus (HIV) seropositivity Hypercholesterolemia Infertile Kidney disease Malignant neoplasm of lung Parkinson's disease Prostate cancer Psychotic disorder Seizure disorder Stroke Tuberculosis Visual impairment AAA, Heart Disease, Diabetes Physical Exam Vital Signs Vital Signs - First Documented 09/14/19 07:40 Temp 36.7 Pulse 62 Resp 22 B/P (MAP) 108/74 (85) O2 Delivery Room Air Capillary Refill : Less Than 3 Seconds Height, Weight, BMI Height: 5'3.00" Weight: 155lbs. 8.0oz. [id number]; 29.00 BMI Method:Stated General Appearance: Other (post ictal ) HEENT: PERRL/EOMI Respiratory: Lungs Clear, No Respiratory Distress Cardiovascular: Regular Rate, Rhythm, No Edema Gastrointestinal: Soft; No Distended, No Guarding Extremity: Normal Capillary Refill Neurologic/Psychiatric: Other (post ictal ) Skin: Normal Color, Warm/Dry Procedures/Interventions Date of ETT Placement: Aug 26, 2019 Time of ETT Placement: 633 Progress/Results/Core Measures Suspected Sepsis Recent Fever Within 48 Hours: No Infection Criteria Present: None New/Unexplained Altered Menta: Yes Sepsis Screen: No Definite Risk SIRS Temperature: Pulse: 62 Respiratory Rate: 22 Laboratory Tests 09/14/19 08:12: White Blood Count 4.8 Blood Pressure 108 /74 Mean: 85 Laboratory Tests 09/14/19 08:12: Creatinine 1.64H, Platelet Count 196, Total Bilirubin 0.1 Results/Orders Lab Results Laboratory Tests Test 09/14/19 07:57 09/14/19 08:12 09/14/19 09:27 Range/Units Blood Gas Puncture Site RR Blood Gas Patient Temperature 36.7 Arterial Blood pH 7.33 *L 7.37-7.43 Arterial Blood Partial Pressure CO2 41 35-45 MMHG Arterial Blood Partial Pressure O2 74 L 79-93 MMHG Arterial Blood HCO3 21 L 23-27 MMOL/L Arterial Blood Total CO2 22.6 21.0-31.0 MMOL/L Arterial Blood Oxygen Saturation 95 94-100 % Arterial Blood Base Excess -3.7 L -2.5-2.5 MMOL/L Domingeuz Test YES-POS Blood Gas Ventilator Setting NO Blood Gas Inspired Oxygen RA White Blood Count 4.8 4.3-11.0 10^3/uL Red Blood Count 3.45 L 4.35-5.85 10^6/uL Hemoglobin 9.9 L 11.5-16.0 G/DL Hematocrit 31 L 35-52 % Mean Corpuscular Volume 91 80-99 FL Mean Corpuscular Hemoglobin 29 25-34 PG Mean Corpuscular Hemoglobin Concent 32 32-36 G/DL Red Cell Distribution Width 14.4 10.0-14.5 % Platelet Count 196 130-400 10^3/uL Mean Platelet Volume 11.0 H 7.4-10.4 FL Neutrophils (%) (Auto) 44 42-75 % Lymphocytes (%) (Auto) 41 12-44 % Monocytes (%) (Auto) 8 0-12 % Eosinophils (%) (Auto) 6 0-10 % Basophils (%) (Auto) 1 0-10 % Neutrophils # (Auto) 2.1 1.8-7.8 X 10^3 Lymphocytes # (Auto) 2.0 1.0-4.0 X 10^3 Monocytes # (Auto) 0.4 0.0-1.0 X 10^3 Eosinophils # (Auto) 0.3 0.0-0.3 10^3/uL Basophils # (Auto) 0.0 0.0-0.1 10^3/uL Sodium Level 140 135-145 MMOL/L Potassium Level 5.8 H 3.6-5.0 MMOL/L Chloride Level 109 H 98-107 MMOL/L Carbon Dioxide Level 20 L 21-32 MMOL/L Anion Gap 11 5-14 MMOL/L Blood Urea Nitrogen 64 H 7-18 MG/DL Creatinine 1.64 H 0.60-1.30 MG/DL Estimat Glomerular Filtration Rate 32 BUN/Creatinine Ratio 39 Glucose Level 94 70-105 MG/DL Calcium Level 8.5 8.5-10.1 MG/DL Corrected Calcium 8.5 8.5-10.1 MG/DL Total Bilirubin 0.1 0.1-1.0 MG/DL Aspartate Amino Transf (AST/SGOT) 14 5-34 U/L Alanine Aminotransferase (ALT/SGPT) 15 0-55 U/L Alkaline Phosphatase 74 40-136 U/L Ammonia 60 H 11-32 UMOL/L Total Protein 6.8 6.4-8.2 GM/DL Albumin 4.0 3.2-4.5 GM/DL Serum Alcohol < 10 <10 MG/DL Urine Color YELLOW Urine Clarity CLEAR Urine pH 6.0 5-9 Urine Specific [place] 1.020 1.016-1.022 Urine Protein NEGATIVE NEGATIVE Urine Glucose (UA) NEGATIVE NEGATIVE Urine Ketones NEGATIVE NEGATIVE Urine Nitrite NEGATIVE NEGATIVE Urine Bilirubin NEGATIVE NEGATIVE Urine Urobilinogen 0.2 < = 1.0 MG/DL Urine Leukocyte Esterase NEGATIVE NEGATIVE Urine RBC (Auto) NEGATIVE NEGATIVE Urine RBC RARE /HPF Urine WBC RARE /HPF Urine Squamous Epithelial Cells 0-2 /HPF Urine Crystals NONE /LPF Urine Bacteria TRACE /HPF Urine Casts NONE /LPF Urine Mucus NEGATIVE /LPF Urine Culture Indicated NO Urine Opiates Screen NEGATIVE NEGATIVE Urine Oxycodone Screen NEGATIVE NEGATIVE Urine Methadone Screen NEGATIVE NEGATIVE Urine Propoxyphene Screen NEGATIVE NEGATIVE Urine Barbiturates Screen POSITIVE H NEGATIVE Ur Tricyclic Antidepressants Screen NEGATIVE NEGATIVE Urine Phencyclidine Screen NEGATIVE NEGATIVE Urine Amphetamines Screen NEGATIVE NEGATIVE Urine Methamphetamines Screen NEGATIVE NEGATIVE Urine Benzodiazepines Screen NEGATIVE NEGATIVE Urine Cocaine Screen NEGATIVE NEGATIVE Urine Cannabinoids Screen NEGATIVE NEGATIVE My Orders Orders - GARZA,DONAVAN L DO Alcohol (09/14/19 07:38) Ammonia (09/14/19 07:38) Arterial Blood Gas (09/14/19 07:57) Cbc With Automated Diff (09/14/19 07:38) Comprehensive Metabolic Panel (09/14/19 07:38) Drug Screen Stat (Urine) (09/14/19 07:38) Ua Culture If Indicated (09/14/19 07:38) Naloxone Injection (Narcan Injection) (09/14/19 07:45) Arterial Blood Draw (09/14/19 ) Ekg Tracing (09/14/19 08:11) Ns Iv 1000 Ml (Sodium Chloride 0.9%) (09/14/19 09:17) Medications Given in ED Current Medications Medications Dose Ordered Sig/Tad Route Start Time Stop Time Status Last Admin Dose Admin Naloxone HCl 2 mg ONCE ONCE IV 09/14/19 07:45 09/14/19 07:46 DC 09/14/19 08:04 2 MG Vital Signs/I&O 09/14/19 07:40 Temp 36.7 Pulse 62 Resp 22 B/P (MAP) 108/74 (85) O2 Delivery Room Air Capillary Refill : Less Than 3 Seconds Blood Pressure Mean: 85 POS Departure Communication (Admissions) Time/Spoke to Admitting Phy: 10:26 Impression Primary Impression: Seizure disorder Disposition: ADMITTED INPATIENT Condition: Stable Admissions Decision to Admit Reason: Admit from ER (General) Decision to Admit/Date: Sep 14, 2019 Time/Decision to Admit Time: 10:27 Departure-Patient Inst. Referrals: [facility] (PCP/Family) Primary Care Physician DONAVAN GARZA DO Sep 14, 2019 08:15 POS
[2019-09-14 08:24] LABS: BASOPHILS % (AUTO) 1 % (0-10); EOSINOPHILS # (AUTO) 0.3 10^3/uL (0.0-0.3); EOSINOPHILS % (AUTO) 6 % (0-10); HEMATOCRIT 31 % (35-52); HEMOGLOBIN 9.9 G/DL (11.5-16.0); LYMPHOCYTES % (AUTO) 41 % (12-44); MEAN CORPUSCULAR HEMOGLOBIN 29 PG (25-34); MEAN CORPUSCULAR HGB CONC 32 G/DL (32-36); MEAN CORPUSCULAR VOLUME 91 FL (80-99); MONOCYTES # (AUTO) 0.4 X 10^3 (0.0-1.0); MONOCYTES % (AUTO) 8 % (0-12); NEUTROPHILS # (AUTO) 2.1 X 10^3 (1.8-7.8); NEUTROPHILS % (AUTO) 44 % (42-75); PLATELET COUNT 196 10^3/uL (130-400); RED CELL DISTRIBUTION WIDTH 14.4 % (10.0-14.5); WHITE BLOOD COUNT 4.8 10^3/uL (4.3-11.0)
[2019-09-14 08:54] LABS: ALANINE AMINOTRANSFERASE 15 U/L (0-55); ALKALINE PHOSPHATASE 74 U/L (40-136); AMMONIA 60 UMOL/L (11-32); BILIRUBIN,TOTAL 0.1 MG/DL (0.1-1.0); BUN/CREATININE RATIO 39; CALCIUM 8.5 MG/DL (8.5-10.1); CARBON DIOXIDE 20 MMOL/L (21-32); CHLORIDE 109 MMOL/L (98-107); CREATININE SERUM 1.64 MG/DL (0.60-1.30); GFR ESTIMATED 32; GLUCOSE 94 MG/DL (70-105); POTASSIUM 5.8 MMOL/L (3.6-5.0); SODIUM 140 MMOL/L (135-145); TOTAL PROTEIN 6.8 GM/DL (6.4-8.2)
[2019-09-14] MEDS ORDERED: NS IV 1000 ML 1,000 ML IV SCH (09:17)
[2019-09-14 09:35] LABS: BILIRUBIN,URINE NEGATIVE (NEGATIVE); CLARITY,URINE CLEAR; COLOR,URINE YELLOW; GLUCOSE, URINE (UA) NEGATIVE (NEGATIVE); KETONES,URINE NEGATIVE (NEGATIVE); LEUKOCYTE ESTERASE ,URINE NEGATIVE (NEGATIVE); NITRITE,URINE NEGATIVE (NEGATIVE); PROTEIN,URINE NEGATIVE (NEGATIVE)
[2019-09-14 09:45] LABS: BACTERIA,URINE TRACE /HPF; RBC,URINE RARE /HPF; SQUAMOUS EPITHELIAL CELL,UR 0-2 /HPF; WBC,URINE RARE /HPF
[2019-09-14 09:52] LABS: AMPHETAMINE SCREEN, URINE NEGATIVE (NEGATIVE); BARBITURATE SCREEN URINE POSITIVE (NEGATIVE); BENZODIAZEPINES SCREEN URINE NEGATIVE (NEGATIVE); CANNABINOID SCREEN, URINE NEGATIVE (NEGATIVE); COCAINE SCREEN URINE NEGATIVE (NEGATIVE); METHADONE STAT NEGATIVE (NEGATIVE); METHAMPHETAMINE SCREEN URINE S NEGATIVE (NEGATIVE); OPIATE SCREEN URINE NEGATIVE (NEGATIVE); OXYCODONE STAT NEGATIVE (NEGATIVE); PROPOXYPHENE STAT NEGATIVE (NEGATIVE); TRICYCLIC ANTIDEPRESSANTS SCRE NEGATIVE (NEGATIVE)
[2019-09-14] MEDS ORDERED: CATHETER FLUSH 10 ML SYR IV PRN (11:30)
[2019-09-14] MEDS: NS IV 1000 ML 1,000 ML IV SCH ×3 (11:41→23:36)
--- NOTE | 2019-09-14 13:13 | NUR ---
UNABLE TO SPEAK WITH THE PATIENT ABOUT HER MEDICATIONS. I UPDATED THE MED REC WITH WHAT HAS BEEN FILLED AT [facility] RECENTLY. SHE HAS NOT FILLED AND PICKED ANYTHING UP SINCE HER LAST VISIT HERE. [facility] HAS FILLED THE RANITIDINE, AMLODIPINE, CLONIDINE, LORATADINE, AND HYDRALAZINE MORE RECENTLY BUT THEY ARE STILL WAITING THERE TO BE PICKED UP. [facility]: [facility] PRAZOSIN 1MG DAILY #30 08-19-19 OXCARBAZEPINE 600MG BID #60 08-19-19 METOPROLOL SUCCINATE 100MG DAILY #30 08-19-19 HYDRALAZINE 50MG TID #90 08-19-19 FLEXERIL 10MG TID PRN #90 08-19-19 LOSARTAN 100MG DAILY #30 08-19-19 LORATADINE 10MG DAILY #30 08-19-19 HYDROXYZINE 25MG BID PRN #60 (DISCONTINUED AT DISCHARGE ON 08-29-19) 08-19-19 PHENOBARBITAL 97.2MG DAILY #30 (DISCONTINUED AT DISCHARGE ON 08-29-19) 08-17-19 CLONIDINE 0.2MG 2 TABS BID #60 FOR 15 DAYS 08-17-19 KEPPRA 50MG BID #60 08-03-19 SPIRONOLACTONE 25MG DAILY #30 08-03-19 RANITIDINE 150MG DAILY #30 07-05-19 AMLODIPINE 10MG DAILY #30 OTC MEDS PREVIOUSLY REPORTED ASPIRIN 81MG DAILY AND TYLENOL PRN
--- NOTE | 2019-09-14 14:02 | ST Dysphagia Evaluation ---
Speech Evaluation-General Medical Diagnosis Seizures Onset Date: Sep 14, 2019 Therapy Diagnosis Therapy Diagnosis: Oropharyngeal Dysphagia Precautions Precautions: Aspiration Referral Referring Physician: Dr. Patel Medical History Pertinent Medical History: Arthritis, COPD, CVA, GERD, HTN, Renal Insufficiency, Smoking Reviewed History: Yes Social History Current Living Status: Alone Speech PLF/Current-Dysphagia Prior Level of Function Patient lives at home where she was able to eat and drink anything she wanted. Subjective The patient was cooperative with the Bedside Dysphagia Evaluation. Cognitive Status Patient Orientation: Person, Place, Situation Oral Motor Skills Dentition: Natural, Tumbled Ability to Follow Directions: Good Patient was NPO pending BDE Oral Expression Ability: No Impairment Voice Voice Phonatory-Based Quality: Glottal De Jesus Voice Pitch: Normal Voice Loudness: Mildly Loud Face Facial Symmetry: Symmetrical Oral-Facial Assessment Oral-Facial Dentition: Normal Labial Seal Description: Normal Smile: Normal Puff Cheeks: Reduced Strength Lingual Protrusion: Normal Lingual ROM: Normal Lingual Strength: Normal Pharynx Velopharyngeal Move.: Normal Volitional Dry Swallow: Yes Voluntary Cough: Yes Can Clear Throat Volitionally: Yes Dysphagia Evaluation Consistencies Presented: Regular, Thin Liquid, Mechanical Soft, Pureed Oral phase is within normal limits of function. Pharyngeal phase is within normal limits of function. Dietary Recommendations: Regular Liquid Recommendations: Thin Swallowing Precautions: Alternate Liquids/Solids, Liquids from Straw, Liquids from Spoon, Small Bites and Sips, Sitting Upright 90 Degrees, Sitting 90 Degrees 30 Post Intake Dysphagia Evaluation Summary Patient is a 58 year old female who was admitted to the ICU via ED due to seizures. Patient was given a BDE with the following textures: thin liquids via 1/2 tsp presentations x2, via straw small sips x2 without s/s of aspiration noted. The patient was presented 1/2 tsp of each puree, mechanical soft and regular without difficulty. The patient is recommended for a regular diet level with thin liquids. This information was written on the white board in the patient's room and provided to her nurse. Barriers to Learning Patient has a history of drug use and seizures. Speech-Plan Patient/Family Goals Patient/Family Goals: The patient plans on returning to her home upon hospital discharge. Treatment Plan Speech Therapy Treatment Plan: Discontinue ST The patient does not require further ST services at this time. Treatment Duration: Sep 14, 2019 Frequency: 1 time per week Estimated Hrs Per Day: .25 hour per day Rehab Potential: Good Barriers to Learning: Patient has a history of drug use and seizures. Pt/Family Agrees to Plan: Yes Safety Risks/Education Teaching Recipient: Patient Teaching Methods: Discussion Response to Teaching: Verbalize Understanding Education Topics Provided: Safety of oral intake and diet level Time Speech Therapy Time In: 13:30 Speech Therapy Time Out: 13:45 Total Billed Time: 15 Billed Treatment Time [address] Sep 14, 2019 14:02 POS
[2019-09-14 16:11] LABS: ABG BASE EXCESS -3.6 MMOL/L (-2.5-2.5); ABG OXYGEN SATURATION 94 % (94-100); ABG PCO2 48 MMHG (35-45); ABG PO2 72 MMHG (79-93); ABG TCO2 23.5 MMOL/L (21.0-31.0)
[2019-09-14 16:12] LABS: ALLENS TEST YES-POS; INSPIRED O2 RA; VENTILATOR NO
[2019-09-14 16:13] LABS: ABG PH 7.29 (7.37-7.43); PATIENT TEMP 36.9
[2019-09-14] MEDS ORDERED: inSUlin (REGULAR) HUMAN 1 UNIT/0.01 ML (CHARGE PER UNIT) IV NR (16:15)
[2019-09-14] MEDS ORDERED: SOD POLYSTERENE 15 GM/60 ML (KAYEXALATE) UNIT DOSE PO NR (16:15)
[2019-09-14] MEDS ORDERED: SODIUM BICARB 8.4% 50 MEQ/50 ML VIAL IV NR (16:15)
[2019-09-14] MEDS ORDERED: DEXTROSE 50% 50 ML (IMS) SYR IV NR (16:15)
--- NOTE | 2019-09-14 16:30 | NUR ---
Dr. Balderrama notified of ABG results. Orders received for BiPAP. RT notified
[2019-09-14 16:45] LABS: CALCIUM 8.2 MG/DL (8.5-10.1); CREATININE SERUM 1.55 MG/DL (0.60-1.30); POTASSIUM 5.9 MMOL/L (3.6-5.0)
--- NOTE | 2019-09-14 17:45 | NUR ---
Pt unable to tolerate BiPAP. Dr. Balderrama notified. Order for vapotherm to maintain sat 90-92%. RT notified
--- NOTE | 2019-09-14 21:22 | History & Physical-Hospitalist ---
History of Present Illness HPI/Chief Complaint Chief complaint: Altered mental status post seizure History of present illness: This is a 58-year-old white female clinic patient of [facility] well-known to me from multiple hospital stays usually every other week due to some sort of complication following a major seizure. She was found to have acute renal failure and altered mental status in need of close monitoring. She did improve and we are contemplating moving down to fourth floor by Dr. Balderrama checked an ABG revealed pH is 7.2 and she was hyperkalemic so she was kept in the ICU and close monitoring and aggressive critical care medicine management was required. Currently patient recognizes me she is able to talk and she did eat supper. Source: patient, RN/MD, old records Date Seen 09/14/19 Time Seen by a Provider: 18:00 Attending Physician Deepika Patel DO [facility] Referring Physician Date of Admission Sep 14, 2019 at 10:38 Home Medications & Allergies Home Medications Reviewed patient Home Medication Reconciliation performed by pharmacy medication reconciliations automotive service technician and/or nursing. Patients Allergies have been reviewed. Allergies Allergies Coded Allergies nitrous oxide (Verified Allergy, Unknown, 06/08/07) Past Heabuue-Fbvyot-Wciuws Hx Past Med/Social Hx: Reviewed Nursing Past Med/Soc Hx, Reviewed and Corrections made Patient Social History Marrital Status: single Employed/Student: unemployed Alcohol Use: Denies Use Recreational 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) Drug of Choice: + IV METH USE, THC USE Smoking Status: Current Everyday Smoker Type Used: Cigarettes 2nd Hand Smoke Exposure: Yes Recent Foreign Travel: No Contact w/other who traveled: No Recent Hopitalizations: No Recent Infectious Disease Expo: No Immunizations Up To Date Tetanus Booster (TDap): Less than 5yrs Pediatric: No Date of Pneumonia Vaccine: Jul 13, 2012 Date of Influenza Vaccine: Jul 15, 2019 Seasonal Allergies Seasonal Allergies: No Past Medical History Surgeries: Abdominal, Adenoidectomy, Cardiac, Section, Hysterectomy, Oophorectomy, Tonsillectomy Respiratory: Pneumonia Currently Using CPAP: No Currently Using BIPAP: No Cardiac: Cardiomyopathy, Coronary Artery Disease, Endocarditis, Heart Attack, Hypertension, Peripheral Vascular, Valvular Heart Disease Neurological: Concussion, Seizure Disorder, Stroke, Traumatic Brain Injury 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: No Sexually Transmitted Disease: No HIV/AIDS: No Female 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 Hysterectomy, Menopausal Genitourinary: Kidney Infection, Bladder Infection, Kidney Stones, Renal Failure, UTI-Chronic Gastrointestinal: Abdominal Hernia, Gastroesophageal Reflux, Pancreatitis, Hepatitis Musculoskeletal: Arthritis, Chronic Back Pain Endocrine: Diabetes, Non-Insulin dep Loss of Vision: Denies Hearing Impairment: Denies Cancer: Cervical Psychosocial: Anxiety, Bipolar, Depression History of Blood Disorders: Yes (ANEMIA OF CHRONIC DISEASE) Adverse Reaction to Blood New: No Family History Abdominal aortic aneurysm 03 FATHER Alcoholism 03 FATHER 03 MOTHER 09 SISTER 09 SISTER Cancer 03 FATHER Cataract 03 FATHER 03 MOTHER Chest pain 03 MOTHER Family history: Diabetes mellitus 03 MOTHER Family history: Hypertension 03 MOTHER Family history: Thyroid disorder 03 MOTHER Headache 09 SISTER Heart disease 03 MOTHER History of drug abuse 03 FATHER 09 SISTER Myocardial infarction 03 MOTHER No Family History of: [place]'s disease Aphasia Cancer of colon Congenital heart disease Congestive heart failure Cystic fibrosis Dementia Dysphagia Family history: Allergy Family history: Alzheimer's disease Family history: Arthritis Family history: Asthma Family history: Breast disease Family history: Cardiovascular disease Family history: Coronary thrombosis Family history: Gastrointestinal disease Family history: Glaucoma Family history: Osteoporosis Hearing loss Hereditary disease History of - anemia History of - disorder History of - respiratory disease Human immunodeficiency virus (HIV) seropositivity Hypercholesterolemia Infertile Kidney disease Malignant neoplasm of lung Parkinson's disease Prostate cancer Psychotic disorder Seizure disorder Stroke Tuberculosis Visual impairment AAA, Heart Disease, Diabetes Review of Systems Constitutional: see HPI Psychiatric/Neurological: Anxiety, Seizure All Other Systems Reviewed Negative Unless Noted: Yes Physical Exam Physical Exam Vital Signs Vital Signs - First Documented 09/14/19 09/14/19 09/14/19 07:40 11:30 17:52 Temp 36.7 Pulse 62 Resp 22 B/P (MAP) 108/74 (85) Pulse Ox 99 O2 Delivery Room Air O2 Flow Rate 30.00 FiO2 30 Capillary Refill : Less Than 3 Seconds Height, Weight, BMI Height: 5'3.00" Weight: 155lbs. 8.0oz. 70.934907hh; 29.00 BMI Method:Stated General Appearance: No Apparent Distress, WD/WN, Chronically ill Eyes: Right Eye Normal Inspection, Right Eye PERRL HEENT: PERRL/EOMI, Normal ENT Inspection, Pharynx Normal, Moist Mucous Membranes Neck: Full Range of Motion, Normal Inspection, Non Tender Respiratory: Chest Non Tender, Lungs Clear, Normal Breath Sounds, No Accessory Muscle Use, No Respiratory Distress Cardiovascular: Regular Rate, Rhythm, No Edema, No Gallop, No JVD, No Murmur, Normal Peripheral Pulses Gastrointestinal: Normal Bowel Sounds, No Organomegaly, No Pulsatile Mass, Non Tender, Soft Back: Normal Inspection, No CVA Tenderness, No Vertebral Tenderness Extremity: Normal Capillary Refill, Normal Inspection, Normal Range of Motion, Non Tender, No Calf Tenderness, No Pedal Edema Neurologic/Psychiatric: Alert, Oriented x3, No Motor/Sensory Deficits, Normal Mood/Affect Skin: Normal Color, Warm/Dry Lymphatic: No Adenopathy Results Results/Procedures Labs Laboratory Tests 09/14/19 08:12 09/14/19 16:26 Patient resulted labs reviewed. Assessment/Plan Admission Diagnosis Assessment: AMS Post seizure Metabolic and respiratory acidosis Hyperkalemia ARF Previous ELIJAH CAD PVD COPD Plan: IVF Supportive care Hyperkalemia treatment Admission Status: Inpatient Order (span 2 midnights) Reason for Inpatient Admission: Seizure with hyperkalemia and acidosis Diagnosis/Problems Diagnosis/Problems (1) Altered mental status Status: Acute (2) Chronic respiratory failure with hypoxia Status: Chronic (3) Seizure disorder Status: Acute (4) Renal failure Status: Acute (5) Hypertension Status: Acute (6) Hyperkalemia Status: Resolved Resolution Date/Time: 08/27/19 @ 11:24 Clinical Quality Measures DVT/VTE Risk/Contraindication: Risk Factor Score Per Nursin RFS Level Per Nursing on Admit: 1=Low/No VTE PPX DEEPIKA PATEL DO Sep 14, 2019 21:22 POS
--- NOTE | 2019-09-14 21:50 | NUR ---
THIS RN CONTACTED DR. VALDOVINOS IN REGARDS TO HYPERTENSION AND PT's C/O PAIN. RECEIVED ORDERS AT THIS TIME TO RESTART ALL PT'S HOME ANTIHYPERTENSIVE MEDICATIONS AND PTS HOME TYLENOL DOSE ALONG WITH AN ORDER FOR PRN FENTANYL.
[2019-09-14] MEDS: inSUlin ASPART (NovoLOG) 1 UNIT/0.01 ML (CHARGE PER UNIT) SC SCH (22:42)
[2019-09-14] MEDS ORDERED: ACETAMINOPHEN 500 MG TAB (TYLENOL) ONE ×2 (22:52→22:55)
[2019-09-14] MEDS ORDERED: fentaNYL INJECTION 100 MCG/2 ML AMP IVP PRN (23:00)
[2019-09-14] MEDS ORDERED: hydrALAZINE (APRESOLINE) 25 MG TAB ONE (23:05)
[2019-09-14] MEDS: SPIRONOLACTONE 25 MG (ALDACTONE) TAB ONE ×2 (23:16→23:52)
[2019-09-14] MEDS: LOSARTAN 100 MG (COZAAR) TABLET ONE ×2 (23:16→23:52)
[2019-09-14] MEDS: meTOprolol SUCCINATE 100 MG (TOPROL XL) TAB PO ONE ×2 (23:16→23:52)
[2019-09-14] MEDS: amLODIPine 10 MG (NORVASC) TAB ONE ×2 (23:17→23:52)
[2019-09-14] MEDS: cloNIDine 0.2 MG (CATAPRES) TAB ONE ×2 (23:18→23:51)
[2019-09-14] MEDS: meTOprolol SUCCINATE 100 MG (TOPROL XL) TAB PO SCH (23:49)
[2019-09-15] VITALS (25 sets, daily range): BP systolic 113–183; BP diastolic 59–138
[2019-09-15 03:16] LABS: ALBUMIN 3.6 GM/DL (3.2-4.5); BILIRUBIN,TOTAL 0.2 MG/DL (0.1-1.0); CALCIUM 8.2 MG/DL (8.5-10.1); CREATININE SERUM 1.6 MG/DL (0.60-1.30); MAGNESIUM 1.9 MG/DL (1.6-2.4); PHOSPHORUS 5.8 MG/DL (2.3-4.7); POTASSIUM 5.9 MMOL/L (3.6-5.0); TOTAL PROTEIN 6.5 GM/DL (6.4-8.2)
[2019-09-15 04:10] LABS: ABG BASE EXCESS -4.3 MMOL/L (-2.5-2.5); ABG OXYGEN SATURATION 94 % (94-100); ABG PCO2 44 MMHG (35-45); ABG PO2 75 MMHG (79-93); ABG TCO2 22.4 MMOL/L (21.0-31.0)
[2019-09-15 04:12] LABS: INSPIRED O2 ROOM AIR; PATIENT TEMP 36.6; VENTILATOR NO
[2019-09-15 04:17] LABS: BASOPHILS % (AUTO) 0 % (0-10); EOSINOPHILS # (AUTO) 0.3 10^3/uL (0.0-0.3); EOSINOPHILS % (AUTO) 6 % (0-10); HEMATOCRIT 30 % (35-52); HEMOGLOBIN 9.8 G/DL (11.5-16.0); LYMPHOCYTES % (AUTO) 36 % (12-44); MEAN CORPUSCULAR HEMOGLOBIN 29 PG (25-34); MEAN CORPUSCULAR HGB CONC 32 G/DL (32-36); MEAN CORPUSCULAR VOLUME 90 FL (80-99); MEAN PLATELET VOLUME 10.8 FL (7.4-10.4); MONOCYTES # (AUTO) 0.3 X 10^3 (0.0-1.0); MONOCYTES % (AUTO) 6 % (0-12); NEUTROPHILS # (AUTO) 2.8 X 10^3 (1.8-7.8); NEUTROPHILS % (AUTO) 52 % (42-75); PLATELET COUNT 203 10^3/uL (130-400); RED CELL DISTRIBUTION WIDTH 14.2 % (10.0-14.5); WHITE BLOOD COUNT 5.4 10^3/uL (4.3-11.0)
[2019-09-15] MEDS: inSUlin ASPART (NovoLOG) 1 UNIT/0.01 ML (CHARGE PER UNIT) SC SCH ×4 (04:43→21:00)
[2019-09-15] MEDS ORDERED: inSUlin (REGULAR) HUMAN 1 UNIT/0.01 ML (CHARGE PER UNIT) IV ONE (05:30)
[2019-09-15] MEDS ORDERED: SOD POLYSTERENE 15 GM/60 ML (KAYEXALATE) UNIT DOSE PO ONE (05:30)
[2019-09-15] MEDS ORDERED: NS IV 1000 ML 1,000 ML IV SCH (05:30)
[2019-09-15] MEDS ORDERED: SODIUM BICARB 8.4% 50 MEQ/50 ML (ABBOTT) SYR IV ONE (05:30)
[2019-09-15] MEDS ORDERED: DEXTROSE 50% 50 ML (IMS) SYR IV ONE (05:30)
[2019-09-15] MEDS ORDERED: FUROSEMIDE 40 MG/4 ML INJ (LASIX) IV ONE (05:30)
--- NOTE | 2019-09-15 05:30 | Pulmonary Consultation ---
History of Present Illness History of Present Illness Date Seen by Provider: Sep 14, 2019 (Late note) Time Seen by Provider: 17:00 Date of Admission History of Present Illness 58-year-old female brought in due to seizure. Patient had a witnessed seizure for approximately 7 minutes. Patient has a known history of seizures. The patient is not 6 L home oxygen. No other history available as patient is postictal Allergies and Home Medications Allergies Coded Allergies: nitrous oxide (Verified Allergy, Unknown, 06/08/07) Home Medications Acetaminophen 500 Mg Tablet, 1,000 MG PO Q6H PRN for PAIN-MILD, (Reported) Amlodipine Besylate 10 Mg Tablet, 10 MG PO DAILY, (Reported) LAST FILLED #30 07-05-19 Aspirin 81 Mg Tab.chew, 81 MG PO DAILY, (Reported) Clonidine HCl 0.2 Mg Tablet, 0.4 MG PO BID, (Reported) TAKES 2 (0.2MG) TABLETS Cyclobenzaprine HCl 10 Mg Tablet, 10 MG PO TID PRN for MUSCLE SPASMS, (Reported) Hydralazine HCl 50 Mg Tablet, 50 MG PO TID, (Reported) Levetiracetam 500 Mg Tablet, 500 MG PO BID, (Reported) Loratadine 10 Mg Tablet, 10 MG PO DAILY, (Reported) Losartan Potassium 100 Mg Tablet, 100 MG PO DAILY, (Reported) Metoprolol Succinate 100 Mg Tab.er.24h, 100 MG PO DAILY, (Reported) Oxcarbazepine 600 Mg Tablet, 600 MG PO BID, (Reported) Prazosin HCl 1 Mg Capsule, 1 MG PO HS, (Reported) Ranitidine HCl 150 Mg Tablet, 150 MG PO HS, (Reported) LAST FILLED #30 08-03-19 Spironolactone 25 Mg Tablet, 25 MG PO DAILY, (Reported) LAST FILLED #30 08-03-19 Past Bieytkp-Tpkanw-Vhyisp Hx Past Med/Social Hx: Reviewed Nursing Past Med/Soc Hx, Reviewed and Corrections made Patient Social History Alcohol Use: Denies Use Recreational 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) Drug of Choice: + IV METH USE, THC USE Smoking Status: Current Everyday Smoker Type Used: Cigarettes 2nd Hand Smoke Exposure: Yes Recent Foreign Travel: No Contact w/Someone Who Travel: No Recent Infectious Disease Expo: No Recent Hopitalizations: No Physical Abuse: No Sexual Abuse: No Mistreated: No Fear: No Immunizations Up To Date Tetanus Booster (TDap): Less than 5yrs PED Vaccines UTD: No Date of Pneumonia Vaccine: Jul 13, 2012 Date of Influenza Vaccine: Jul 15, 2019 Seasonal Allergies Seasonal Allergies: No Past Medical History Surgeries: Yes Abdominal, Adenoidectomy, Cardiac, Section, Hysterectomy, Oophorectomy, Tonsillectomy Respiratory: Yes COPD Currently Using CPAP: No Currently Using BIPAP: No Cardiac: Yes Cardiomyopathy, Coronary Artery Disease, Endocarditis, Heart Attack, Hypertension, Peripheral Vascular, Valvular Heart Disease Neurological: Yes Concussion, Seizure Disorder, Stroke, Traumatic Brain Injury 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 Disorders: No Female 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 History: Hysterectomy, Menopausal Sexually Transmitted Disease: No HIV/AIDS: No Genitourinary: Yes Kidney Infection, Bladder Infection, Kidney Stones, Renal Failure, UTI-Chronic Gastrointestinal: Yes Abdominal Hernia, Gastroesophageal Reflux, Pancreatitis, Hepatitis Musculoskeletal: Yes (CHRONIC NECK AND BACK PAIN; POOR AMBULATION) Arthritis, Chronic Back Pain Endocrine: Yes (HGB AIC WAS 6.5 ON 12/23/18) Diabetes, Non-Insulin dep HEENT: Yes (POOR DENTITION) Loss of Vision: Denies Hearing Impairment: Denies Cancer: No Cervical Psychosocial: Yes (EXTENSIVE POLYSUBSTANCE ABUSE) Anxiety, Bipolar, Depression Integumentary: No Blood Disorders: Yes (ANEMIA OF CHRONIC DISEASE) Adverse Reaction/Blood Tranf: No Family Medical History Abdominal aortic aneurysm 03 FATHER Alcoholism 03 FATHER 03 MOTHER 09 SISTER 09 SISTER Cancer 03 FATHER Cataract 03 FATHER 03 MOTHER Chest pain 03 MOTHER Family history: Diabetes mellitus 03 MOTHER Family history: Hypertension 03 MOTHER Family history: Thyroid disorder 03 MOTHER Headache 09 SISTER Heart disease 03 MOTHER History of drug abuse 03 FATHER 09 SISTER Myocardial infarction 03 MOTHER No Family History of: Isael's disease Aphasia Cancer of colon Congenital heart disease Congestive heart failure Cystic fibrosis Dementia Dysphagia Family history: Allergy Family history: Alzheimer's disease Family history: Arthritis Family history: Asthma Family history: Breast disease Family history: Cardiovascular disease Family history: Coronary thrombosis Family history: Gastrointestinal disease Family history: Glaucoma Family history: Osteoporosis Hearing loss Hereditary disease History of - anemia History of - disorder History of - respiratory disease Human immunodeficiency virus (HIV) seropositivity Hypercholesterolemia Infertile Kidney disease Malignant neoplasm of lung Parkinson's disease Prostate cancer Psychotic disorder Seizure disorder Stroke Tuberculosis Visual impairment AAA, Heart Disease, Diabetes Review of Systems Date Seen by Provider: Sep 22, 2019 Time Seen by Provider: 06:44 Sepsis Event Evaluation Height, Weight, BMI Height: 5'3.00" Weight: 155lbs. 8.0oz. 70.302834zu; 29.00 BMI Method:Stated Exam Exam Vital Signs Date Time Temp Pulse Resp B/P (MAP) Pulse Ox O2 Delivery O2 Flow Rate FiO2 09/15/19 02:41 97 Room Air 09/15/19 01:00 83 09/15/19 00:00 82 18 183/108 (133) 95 Vapotherm 30.00 30.00 09/15/19 00:00 Room Air 09/14/19 23:00 82 14 188/109 (135) 98 Vapotherm 30.00 30.00 09/14/19 22:36 98 Room Air 09/14/19 22:00 80 21 123/108 (113) 100 Vapotherm 30.00 30.00 09/14/19 21:00 80 19 194/90 (124) 99 Vapotherm 30.00 30.00 09/14/19 20:28 36.6 09/14/19 20:00 84 20 107/87 (94) 97 Vapotherm 30.00 30.00 09/14/19 20:00 Room Air 09/14/19 19:00 80 09/14/19 19:00 78 27 172/99 (123) 100 Vapotherm 30.00 30.00 09/14/19 18:00 65 15 162/97 (118) 100 Vapotherm 30.00 30.00 09/14/19 18:00 Vapotherm 30.00 30.00 09/14/19 17:52 100 Vapotherm 30.00 30 09/14/19 17:00 79 19 141/87 (105) 99 Room Air 09/14/19 16:00 68 15 134/80 (98) 97 Room Air 09/14/19 16:00 Room Air 09/14/19 15:41 36.9 09/14/19 15:36 Room Air 09/14/19 15:00 77 32 159/102 (121) 98 Room Air 09/14/19 14:00 63 14 139/75 (96) 95 Room Air 09/14/19 13:00 61 15 128/77 (94) 95 Room Air 09/14/19 13:00 66 09/14/19 12:20 36.0 09/14/19 12:00 65 15 117/74 (88) 92 Room Air 09/14/19 12:00 Room Air 09/14/19 11:41 36.7 60 18 103/85 (92) 96 Room Air 09/14/19 11:30 64 18 116/80 (92) 99 Room Air 09/14/19 11:24 67 09/14/19 07:40 36.7 62 22 108/74 (85) Room Air I & O 09/15/19 07:00 Intake Total 2780 ml Output Total 2450 ml Balance 330 ml Height & Weight Height: 5'3.00" Weight: 155lbs. 8.0oz. 70.640605av; 29.00 BMI Method:Stated General Appearance: No Apparent Distress, WD/WN, Chronically ill HEENT: PERRL/EOMI, Normal ENT Inspection, Pharynx Normal, Moist Mucous Membranes Neck: Full Range of Motion, Normal Inspection, Non Tender Respiratory: Chest Non Tender, Lungs Clear, Normal Breath Sounds, No Accessory Muscle Use, No Respiratory Distress Cardiovascular: Regular Rate, Rhythm, No Edema, No Gallop, No JVD, No Murmur, Normal Peripheral Pulses Capillary Refill: Less Than 3 Seconds Extremity: Normal Capillary Refill, Normal Inspection, Normal Range of Motion, Non Tender, No Calf Tenderness, No Pedal Edema Neurologic/Psychiatric: Alert, Oriented x3, No Motor/Sensory Deficits, Normal Mood/Affect Skin: Normal Color, Warm/Dry Lymphatic: No Adenopathy Results Lab Laboratory Tests 09/14/19 08:12 09/14/19 16:26 09/15/19 02:50 09/15/19 04:00 Assessment/Plan Assessment/Plan Mental status changes s/p seizure witnessed Hyperkalemia -Will treat with bicarb, insulin, kayexalate, IVF Metabolic/respiratory acidosis ARF CAD HX of drug use COPD hx -Currently on RA Alcohol dependance RICARDA COVINGTON DO Sep 15, 2019 05:30 POS
[2019-09-15] MEDS ORDERED: FUROSEMIDE 40 MG/4 ML INJ (LASIX) ONE (05:46)
[2019-09-15] MEDS ORDERED: SODIUM BICARB 8.4% 50 MEQ/50 ML VIAL ONE (05:46)
[2019-09-15] MEDS ORDERED: DEXTROSE 50% 50 ML (IMS) SYR ONE (05:47)
[2019-09-15] MEDS ORDERED: inSUlin (REGULAR) HUMAN 1 UNIT/0.01 ML (CHARGE PER UNIT) ONE (05:48)
[2019-09-15] MEDS ORDERED: SOD POLYSTERENE 15 GM/60 ML (KAYEXALATE) UNIT DOSE ONE (05:50)
[2019-09-15] MEDS: ENOXAPARIN 40 MG/0.4 ML (LOVENOX) SYR SC SCH (05:58)
[2019-09-15] MEDS ORDERED: KCL 20 MEQ TAB (K-DUR) PO SCH (06:00)
[2019-09-15] MEDS ORDERED: MAGNESIUM 1 GM/100 ML IVPB 100 ML IV SCH (06:00)
[2019-09-15] MEDS ORDERED: POTASSIUM CL 10MEQ/50ML IVPB 50 ML IV SCH (06:00)
[2019-09-15] MEDS ORDERED: LEVETIRACETAM INJECTION 1,000 MG in NS (IVPB) 100 ML IV ONE (06:15)
[2019-09-15] MEDS ORDERED: LORazepam INJ 2 MG/ML (ATIVAN) VIAL ONE ×2 (06:37→06:40)
[2019-09-15] MEDS ORDERED: NS (IVPB) 50 ML ONE (06:45)
[2019-09-15] MEDS: DEXMEDETOMIDINE 1,000 MCG/NS 250 ML IV SCH ×4 (07:00→08:15)
[2019-09-15] MEDS ORDERED: LORazepam INJ 2 MG/ML (ATIVAN) VIAL IVP ONE (07:45)
--- NOTE | 2019-09-15 08:06 | NUR ---
THIS RN WITNESSED THIS PT BEGIN GRAND-MAL SEIZURE ACTIVITY AT 0635 AND CONTINUED UNTIL 0645 WITH NO INJURIES OCCURRING. 4MG ATIVAN WAS OBTAINED FROM [employer] AND GIVEN PER DR ORDERS. PRECEDEX GTT WAS ORDERED AND HUNG POST SEIZURE ACTIVITY PER .
[2019-09-15] MEDS: LORazepam INJ 2 MG/ML (ATIVAN) VIAL IVP PRN ×2 (08:16→23:23)
--- NOTE | 2019-09-15 08:23 | NUR ---
UNABLE TO DOCUMENT ON KAYEXALATE AND SODIUM BICARB D/T NO LONGER BEING ON THE EMAR. THESE MEDICATIONS WERE SCANNED BUT NOT GIVEN (PER DR ORDERS) D/T PT BEGINNING SEIZURE ACTIVITY DIRECTLY BEFORE ADMINISTRATION.
--- NOTE | 2019-09-15 08:26 | Progress Note - Hospitalist ---
[facility] 09/15/19 0826: Subjective HPI/CC On Admission Date Seen by Provider: Sep 15, 2019 Time Seen by Provider: 08:10 Chief complaint: Altered mental status post seizure History of present illness: This is a 58-year-old white female clinic patient of [facility] well-known to me from multiple hospital stays usually every other week due to some sort of complication following a major seizure. She was found to have acute renal failure and altered mental status in need of close monitoring. She did improve and we are contemplating moving down to fourth floor by Dr. Balderrama checked an ABG revealed pH is 7.2 and she was hyperkalemic so she was kept in the ICU and close monitoring and aggressive critical care medicine management was required. Currently patient recognizes me she is able to talk and she did eat supper. Subjective/Events-last exam Patient was eating at table Patient appeared confused I asked the patient if she has a history of seizure and she reported that she developed them from horse back riding. Nurse reported that she had a seizure for 10 minutes this morning Patient denied any pain Review of Systems General: No Chills, No Other (fevers) Pulmonary: Cough Cardiovascular: No: Chest Pain Gastrointestinal: No: Nausea, Vomiting Genitourinary: No Dysuria Focused Exam Lactate Level 09/15/19 05:50: Lactic Acid Level 0.94 Lactic Acid Level Objective Exam Vital Signs Vital Signs Date Time Temp Pulse Resp B/P (MAP) Pulse Ox O2 Delivery O2 Flow Rate FiO2 09/15/19 10:56 97 Room Air 09/15/19 09:20 4.00 09/15/19 09:00 77 16 09/14/19 20:28 36.6 09/14/19 17:52 30 Capillary Refill : Less Than 3 Seconds General Appearance: Other (Sitting at table rocking back and forth) Neck: Full Range of Motion Respiratory: Chest Non Tender, Lungs Clear, No Accessory Muscle Use, No Respiratory Distress Cardiovascular: Regular Rate, Rhythm, No Edema, No Murmur, Normal Peripheral Pulses (2/4 radial bilaterally) Extremity: Non Tender, No Calf Tenderness Neurologic/Psychiatric: Alert; No Oriented x3 (Seemed ) Skin: Normal Color, Warm/Dry Results/Procedures Lab Laboratory Tests 09/14/19 16:26 09/15/19 02:50 09/15/19 04:00 Patient resulted labs reviewed. Assessment/Plan Assessment and Plan Assess & Plan/Chief Complaint Seizures History of drug use Hyperkalemia Renal Insufficiency Urine screen positive for barbiturates IV fluids Continue to monitor vitals Benzodiazepines for seizure Prophylaxis Clinical Quality Measures DVT/VTE Risk/Contraindication: Risk Factor Score Per Nursin RFS Level Per Nursing on Admit: 1=Low/No VTE PPX DEEPIKA VALDOVINOS DO 09/15/192049: Subjective Subjective/Events-last exam Pt had a couple of seizures already this morning Will place a Groshong port due to significant venous access and I foresee her requiring hospital services and health care very often 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 Pt still postictal so she does not talk to me today Objective Exam General Appearance: Chronically ill, Other (post ictal) Respiratory: Lungs Clear Cardiovascular: Regular Rate, Rhythm Assessment/Plan Assessment and Plan Assess & Plan/Chief Complaint Groshong port placement Seizure d/o ARF Diagnosis/Problems Diagnosis/Problems (1) Seizure disorder Status: Chronic (2) Altered mental status Status: Acute (3) Renal failure Status: Acute Supervisory-Addendum Brief Verification & Attestation Participated in pt care: history, MDM, physical Personally performed: exam, history, MDM, supervision of care Care discussed with: Medical Student Procedures: n/a Results interpretation: Verified all documentation Verification and Attestation of Medical Student E/M Service A medical student performed and documented this service in my presence. I reviewed and verified all information documented by the medical student and made modifications to such information, when appropriate. I personally performed the physical exam and medical decision making. Deepika Valdovinos, Sep 15, 2019,20:49 JAIMIE CHAPARRO [facility] Sep 15, 2019 08:26 DEEPIKA GRECO DO Sep 15, 2019 20:50 POS
--- NOTE | 2019-09-15 08:52 | Diagnostic Imaging Report ---
INDICATION: Dyspnea. TECHNIQUE: Single view chest at 3:17 AM. CORRELATION STUDY: 08/29/2019. FINDINGS: The right IJ central line has been removed. The heart size and mediastinal configuration are stable. The vasculature appears stable. Mildly prominent interstitial markings likely reflect chronic lung disease. There does appear to be perhaps a minimal effusion at the left lung base with atelectasis and/or less likely infiltrate. IMPRESSION: There is a small left pleural effusion with minimal left basilar atelectasis and/or less likely infiltrate. Dictated by: Dictated on workstation # [id number]
[2019-09-15] MEDS ORDERED: LORATADINE (CLARITIN) 10 MG TAB PO SCH (09:00)
[2019-09-15] MEDS ORDERED: LEVETIRACETAM 500 MG (KEPPRA) TAB PO SCH (09:00)
[2019-09-15] MEDS ORDERED: SPIRONOLACTONE 25 MG (ALDACTONE) TAB PO SCH (09:00)
[2019-09-15] MEDS ORDERED: NON-FORMULARY MEDICATION 1 EA EA (Amlodipine Besylate 10 MG) PO SCH (09:00)
[2019-09-15] MEDS ORDERED: CLONIDINE HCL PO SCH (09:00)
[2019-09-15] MEDS ORDERED: LOSARTAN 100 MG (COZAAR) TABLET PO SCH (09:00)
[2019-09-15] MEDS: LEVETIRACETAM INJECTION 1,000 MG in NS (IVPB) 100 ML IV SCH ×2 (10:29→21:00)
[2019-09-15] MEDS: hydrALAZINE (APRESOLINE) 25 MG TAB PO SCH ×3 (10:30→21:00)
[2019-09-15] MEDS: cloNIDine 0.2 MG (CATAPRES) TAB PO SCH ×2 (10:30→21:00)
[2019-09-15] MEDS: amLODIPine 10 MG (NORVASC) TAB PO SCH (10:30)
[2019-09-15] MEDS: meTOprolol SUCCINATE 100 MG (TOPROL XL) TAB PO SCH (10:30)
--- NOTE | 2019-09-15 12:13 | Progress Note-Pre Operative ---
Pre-Operative Progress Note H&P Reviewed The H&P was reviewed, patient examined and no changes noted. Date Seen by Provider: Sep 15, 2019 Time Seen by Provider: 12:00 Date H&P Reviewed: Sep 15, 2019 Time H&P Reviewed: 12:00 Pre-Operative Diagnosis: major seizure disorder, poor peripheral circulation CLAIRE ROWELL MD Sep 15, 2019 12:13 POS
[2019-09-15] MEDS: NS IV 1000 ML 1,000 ML IV SCH ×2 (12:44→19:30)
--- NOTE | 2019-09-15 12:47 | CONSULTATION REPORT ---
DATE OF SERVICE: 09/15/2019 ATTENDING INSPECTOR SCREEN PRINTING: [facility]. HISTORY OF PRESENT ILLNESS: The patient is a 58-year-old female who was admitted for acute renal failure and altered mental status change. She has had multiple admissions due to complications of a major seizure disorder. Laboratory work was done as well as arterial blood gas, which revealed a pH of 7.2 and hyperkalemia and she is being monitored in the ICU. She has very poor peripheral venous circulation and due to her frequent hospital admissions as well as need for IV access, she will need a Groshong implantable catheter for frequent blood draws as well as medications and IV fluids. PAST MEDICAL HISTORY: Major seizure disorder, cardiomyopathy, coronary artery disease, history of endocarditis, history of myocardial infarction, hypertension, peripheral vascular disease, valvular heart disease, stroke, traumatic brain injury, chronic urinary tract infection, history of nephrolithiasis, gastroesophageal reflux disease, pancreatitis, hepatitis, diabetes, anxiety, depression, bipolar disorder. PAST SURGICAL HISTORY: Tonsillectomy, adenoidectomy, total hysterectomy, and section. ALLERGIES: NITROUS OXIDE. MEDICATIONS: Amlodipine 10 mg daily, aspirin 81 mg daily, clonidine 0.4 mg b.i.d., cyclobenzaprine 10 mg t.i.d., hydralazine 50 mg t.i.d., levetiracetam 500 mg b.i.d., loratadine 10 mg daily, losartan 100 mg daily, metoprolol 100 mg daily, oxcarbazepine 600 mg b.i.d., prazosin 1 mg daily and ranitidine 150 mg daily. SOCIAL HISTORY: Positive smoke, previous history of methamphetamine use, and she does use THC. FAMILY HISTORY: Father, abdominal aortic aneurysm. Mother - diabetes, hypertension, myocardial infarction. Vital signs - temperature is 36.6, blood pressure 126/82, pulse 78, respirations 17, and pulse ox 92% on 4 liters nasal cannula. REVIEW OF SYSTEMS: A well-nourished female, currently in no acute distress. She is not experiencing any shortness of breath or difficulty breathing. No chest pain, palpitations, diaphoresis. No nausea or vomiting, no diarrhea or constipation. No fever or chills, no recent inadvertent weight loss. All other review of systems is negative. PHYSICAL EXAMINATION: CHEST: Few scattered rales and rhonchi bilaterally. HEART: Regular, no murmurs. EXTREMITIES: No lower extremity edema, negative Homans sign. HEENT: No scleral icterus. NECK: No cervical lymphadenopathy. ABDOMEN: Soft, nontender, nondistended. SKIN: Warm, dry. ASSESSMENT AND PLAN: A 58-year-old female with a history of multitude of medical problems including cardiomyopathy, coronary artery disease, history of myocardial infarction, hypertension, peripheral vascular disease as well as major seizure disorder. She is in need of frequent hospital admissions as well as IV access as she has very poor peripheral venous circulation and will require Groshong implantable catheter for IV access as well as frequent blood draws. We will proceed with placement of Groshong implantable catheter. Job ID: [id number] DocumentID: [id number] Dictated Date: 09/15/2019 12:12:12 Dairy Technologist Date: 09/15/2019 12:45:49 Dictated By: CLAIRE ROWELL MD
[2019-09-15 14:01] LABS: POTASSIUM 5.6 MMOL/L (3.6-5.0)
[2019-09-15 14:02] LABS: ALBUMIN 3.9 GM/DL (3.2-4.5); BILIRUBIN,TOTAL 0.3 MG/DL (0.1-1.0); CALCIUM 8.8 MG/DL (8.5-10.1); CREATININE SERUM 1.37 MG/DL (0.60-1.30); TOTAL PROTEIN 6.7 GM/DL (6.4-8.2)
[2019-09-15] MEDS ORDERED: 0.9% SODIUM CHLORIDE PF INJ 20 ML VIAL ONE (14:17)
[2019-09-15] MEDS ORDERED: BUP/EPI 0.5% 1:200,000 (MARCAINE) 10ML VIAL IJ ONE (14:17)
[2019-09-15] MEDS ORDERED: HEParin (CENTRAL IV FLUSH) 500 UNIT/5 ML SYR ONE (14:17)
[2019-09-15] MEDS ORDERED: morphine INJ 10 MG/ML 1ML (SYR OR VIAL) ONE (15:07)
[2019-09-15] MEDS ORDERED: HYDROmorphone 2 MG/ML VIAL (DILAUDID) ONE (15:07)
[2019-09-15] MEDS ORDERED: ONDANSETRON 4 MG/2 ML (SDV) Z0FRAN ONE (15:08)
--- NOTE | 2019-09-15 15:15 | NUR ---
PT LEAVING UNIT VIA BED ACCOMPANIED BY SURGERY STAFF. WILL WAIT FOR PT TO RETURN TO UNIT.
[2019-09-15] MEDS ORDERED: LIDOCAINE PF 2% 5 ML (XYLOCAINE) VIAL ONE (15:16)
[2019-09-15] MEDS ORDERED: MIDAZOLAM 2 MG/2 ML (VERSED) VIAL ONE ×2 (15:16→15:56)
[2019-09-15] MEDS ORDERED: proPOfol 200 MG/20 ML (DIPRIVAN) VIAL IV ONE (15:16)
[2019-09-15] MEDS ORDERED: fentaNYL INJECTION 100 MCG/2 ML AMP ONE (15:16)
[2019-09-15] MEDS ORDERED: NS IV 500 ML 500 ML ONE (15:27)
[2019-09-15] MEDS ORDERED: ceFAZolin INJECTION 1,000 MG ONE (15:30)
--- NOTE | 2019-09-15 16:37 | Anesthesia-General Post-Op ---
MAC Patient Condition Mental Status/LOC: Same as Preop Cardiovascular: Satisfactory Nausea/Vomiting: Absent Respiratory: Satisfactory Pain: Controlled Complications: Absent Post Op Complications Complications None Follow Up Care/Instructions Patient Instructions None needed. Anesthesiology Discharge Order Discharge Order Patient is doing well, no complaints, stable vital signs, no apparent adverse anesthesia problems. No complications reported per nursing. JAIMIE FRIED CRNA Sep 15, 2019 16:37 POS
[2019-09-15] MEDS ORDERED: ONDANSETRON 4 MG/2 ML (SDV) Z0FRAN IVP PRN (16:45)
[2019-09-15] MEDS ORDERED: HYDROmorphone 2 MG/ML VIAL (DILAUDID) IV ONE (16:45)
--- NOTE | 2019-09-15 16:45 | Progress Note-Post Operative ---
Post-Operative Progess Note Surgeon (s)/Cooling Tower Operator (s) Surgeon CLAIRE ROWELL MD Cooling Tower Operator: none Pre-Operative Diagnosis major seizure disorder, poor peripheral circulation Post-Operative Diagnosis same Procedure & Operative Findings Date of Procedure 09/15/19 Procedure Performed/Findings placement left subclavian groshong under flouroscopy. Anesthesia Type MAC with local Estimated Blood Loss Estimated blood loss (mL): minimal Specimens/Packing Specimens Removed none CLAIRE ROWELL MD Sep 15, 2019 16:45 POS
--- NOTE | 2019-09-15 17:25 | Diagnostic Imaging Report ---
INDICATION: Central line placement Portable chest 5:15 PM Left subclavian Port-A-Cath tip projects over the SVC. Heart size and pulmonary vascularity are normal. Lungs are clear. There are no effusions or pneumothoraces. IMPRESSION: Negative chest Dictated by: Dictated on workstation # [id number]
--- NOTE | 2019-09-15 18:09 | Diagnostic Imaging Report ---
INDICATION: Central line placement. IMPRESSION: 5.7 seconds of fluoroscopy was used in surgery by Dr. Kwan who did left subclavian Groshong catheter insertion. Digital image acquired shows catheter tip projecting over the SVC at the cavoatrial junction. Dictated by: Dictated on workstation # [id number]
[2019-09-16] VITALS (24 sets, daily range): BP systolic 111–207; BP diastolic 57–115
[2019-09-16] MEDS: fentaNYL INJECTION 100 MCG/2 ML AMP IVP PRN ×4 (02:20→21:23)
--- NOTE | 2019-09-16 02:21 | NUR ---
09-15-- PT BEGAN TO HAVE SEIZURE ACTIVITY - LASTED UNTIL 2323. 09-15-- PT STARTED TO SEIZE AGAIN - LASTED UNTIL 2326 2MG OF ATIVAN TOTAL GIVEN
[2019-09-16] MEDS: LORazepam INJ 2 MG/ML (ATIVAN) VIAL IVP PRN ×4 (02:28→12:01)
--- NOTE | 2019-09-16 02:36 | NUR ---
THIS RN WITNESSED THIS PT BEGIN SEIZURE ACTIVITY AT 225 AND LASTED UNTIL 228. SEIZURE ACTIVITY STARTED AGAIN AT 230 AND LASTED UNTIL 233 3MG ATIVAN GIVEN TOTAL
[2019-09-16 03:33] LABS: BASOPHILS % (AUTO) 0 % (0-10); EOSINOPHILS # (AUTO) 0.3 10^3/uL (0.0-0.3); EOSINOPHILS % (AUTO) 6 % (0-10); HEMATOCRIT 33 % (35-52); HEMOGLOBIN 10.5 G/DL (11.5-16.0); LYMPHOCYTES # (AUTO) 1.8 X 10^3 (1.0-4.0); LYMPHOCYTES % (AUTO) 30 % (12-44); MEAN CORPUSCULAR HEMOGLOBIN 29 PG (25-34); MEAN CORPUSCULAR HGB CONC 32 G/DL (32-36); MEAN CORPUSCULAR VOLUME 89 FL (80-99); MEAN PLATELET VOLUME 10.5 FL (7.4-10.4); MONOCYTES # (AUTO) 0.4 X 10^3 (0.0-1.0); MONOCYTES % (AUTO) 6 % (0-12); NEUTROPHILS # (AUTO) 3.6 X 10^3 (1.8-7.8); NEUTROPHILS % (AUTO) 59 % (42-75); PLATELET COUNT 228 10^3/uL (130-400); WHITE BLOOD COUNT 6.1 10^3/uL (4.3-11.0)
--- NOTE | 2019-09-16 03:34 | OPERATIVE REPORT ---
DATE OF SERVICE: 09/15/2019 ATTENDING TRAVELING REPAIR ACCOUNTANT: [facility]. PREOPERATIVE DIAGNOSES: Major seizure disorder, poor peripheral venous circulation. POSTOPERATIVE DIAGNOSES: Major seizure disorder, poor peripheral venous circulation. PROCEDURE: Placement of left subclavian Groshong implantable catheter under fluoroscopy. SURGEON: Claire Rowell MD. ESTIMATED BLOOD LOSS: Minimal. ANESTHESIA: Monitored anesthesia care with local. FINDINGS: Catheter tip at superior vena cava -- right atrial junction. DISPOSITION: The patient tolerated the procedure well. INDICATIONS: The patient is a 58-year-old female who was admitted for acute renal failure as well as altered mental status change. She has had multiple admissions due to complications of major seizure disorder. She also does have a longstanding history of previous drug abuse. Laboratory work was done on this admission as well as arterial blood gas, which revealed a pH of 7.2 and hyperkalemia and she was admitted to the ICU. She has very poor peripheral venous circulation and due to her frequent hospital admissions as well as need for IV access, she will need a Groshong implantable catheter for frequent blood draws as well as administration of IV medications and fluids. DESCRIPTION OF PROCEDURE: The patient was brought to the operating room, laid supine on the table. After adequate IV pain and sedative medications and monitored anesthesia care, the chest and neck were prepped and draped in standard surgical fashion. A 1% lidocaine with epinephrine was used to anesthetize the overlying skin in the subclavian region. The left subclavian vein was then cannulated withdrawing the venous blood. The guidewire was then inserted under fluoroscopy. Cannulating needle removed and a skin incision made using a 15 blade. A tract was then created using a venous dilator as well as the sheath over the guidewire. The dilator and guidewire were then removed and the Groshong implantable catheter was placed through the sheath until the catheter tip was at the superior vena cava -- right atrial junction under fluoroscopy. The sheath was then removed. The inner wire was then removed from the catheter. The catheter cut down to size and port placed onto the catheter. We then proceeded with creation of the chest subcutaneous reservoir. The skin incision was extended laterally using a 15 blade and a plane was created between the subcutaneous fat as well as anterior pectoralis fascia using electrocautery as well as blunt dissection. The port was then placed into the reservoir and then sutured to the anterior pectoralis fascia using interrupted 3-0 Vicryl sutures. The subcutaneous tissue was then reapproximated using 3-0 Vicryl interrupted sutures. Skin was closed using 4-0 Monocryl running subcuticular suture. Wound was then cleaned and covered with Dermabond. The port was also accessed. The skin was then cleaned and covered with Dermabond and the access was then covered with gauze followed by Op-Site. The patient tolerated the procedure well. We will get a post-procedure chest x-ray once confirmation of placement of the port may be used at any time. Job ID: [id number] DocumentID: [id number] Dictated Date: 09/15/2019 16:51:38 Securities Adviser Date: 09/16/2019 03:33:13 Dictated By: CLAIRE ROWELL MD
[2019-09-16 03:58] LABS: CALCIUM 8.6 MG/DL (8.5-10.1); CREATININE SERUM 1.4 MG/DL (0.60-1.30); MAGNESIUM 1.9 MG/DL (1.6-2.4); PHOSPHORUS 6.1 MG/DL (2.3-4.7); POTASSIUM 4.8 MMOL/L (3.6-5.0)
[2019-09-16] MEDS: NS IV 1000 ML 1,000 ML IV SCH ×3 (04:25→21:17)
[2019-09-16] MEDS: inSUlin ASPART (NovoLOG) 1 UNIT/0.01 ML (CHARGE PER UNIT) SC SCH ×4 (04:44→20:58)
--- NOTE | 2019-09-16 05:47 | Pulmonary Progress Note ---
Subjective Time Seen by a Provider: 05:51 Subjective/Events-last exam Pt had 2 episodes of seizures last night. Sepsis Event Evaluation Height, Weight, BMI Height: 5'3.00" Weight: 155lbs. 8.0oz. [id number]; 29.00 BMI Method:Stated Focused Exam Lactate Level 09/15/19 05:50: Lactic Acid Level 0.94 Exam Exam Vital Signs Date Time Temp Pulse Resp B/P (MAP) Pulse Ox O2 Delivery O2 Flow Rate FiO2 09/16/19 04:00 Nasal Cannula 2.00 09/16/19 01:00 78 09/16/19 00:00 Nasal Cannula 2.00 09/16/19 00:00 78 21 143/73 (96) 99 Nasal Cannula 2.00 09/15/19 23:00 75 20 168/87 (114) 98 Nasal Cannula 2.00 09/15/19 22:00 69 16 148/91 (110) 99 Nasal Cannula 2.00 09/15/19 21:12 Nasal Cannula 2.00 09/15/19 21:00 77 12 157/93 (114) Nasal Cannula 4.00 09/15/19 20:00 36.1 09/15/19 20:00 Room Air 09/15/19 20:00 78 12 163/95 (117) Nasal Cannula 4.00 09/15/19 19:00 77 13 175/93 (120) 95 Nasal Cannula 4.00 09/15/19 19:00 73 09/15/19 18:00 74 19 152/78 (102) 98 Nasal Cannula 4.00 09/15/19 17:00 36.8 20 134/75 (94) 99 OxyMask 3 09/15/19 17:00 OxyMask 3 09/15/19 16:50 20 137/72 (93) 98 OxyMask 3 09/15/19 16:45 OxyMask 3 09/15/19 16:40 20 135/80 (98) 98 OxyMask 3 09/15/19 16:32 OxyMask 3 09/15/19 16:32 37.0 16 142/86 (104) 96 OxyMask 3 09/15/19 16:00 09/15/19 16:00 Room Air 09/15/19 15:00 72 18 132/74 (93) 99 Room Air 09/15/19 14:00 72 18 150/86 (107) 100 Room Air 09/15/19 13:00 66 40 127/74 (91) 98 Nasal Cannula 4.00 09/15/19 13:00 66 09/15/19 12:00 36.2 09/15/19 12:00 Room Air 09/15/19 12:00 65 25 113/59 (77) 94 Nasal Cannula 4.00 09/15/19 11:00 78 17 126/82 (97) 92 Nasal Cannula 4.00 09/15/19 10:56 97 Room Air 09/15/19 10:00 78 13 125/104 (111) 96 Nasal Cannula 4.00 09/15/19 09:20 Nasal Cannula 4.00 09/15/19 09:00 77 16 91 Vapotherm 30.00 30.00 09/15/19 08:00 Room Air 09/15/19 08:00 85 26 171/138 (149) 93 Vapotherm 30.00 30.00 09/15/19 07:00 66 18 142/100 (114) 94 Vapotherm 30.00 30.00 09/15/19 06:44 80 09/15/19 06:00 71 13 144/97 (113) 96 Vapotherm 30.00 30.00 I & O 09/16/19 07:00 Intake Total 1730 ml Output Total 4450 ml Balance -2720 ml Height & Weight Height: 5'3.00" Weight: 155lbs. 8.0oz. 70.750407iy; 29.00 BMI Method:Stated General Appearance: Chronically ill, Other (post ictal) HEENT: PERRL/EOMI, Normal ENT Inspection, Pharynx Normal, Moist Mucous Membranes Neck: Full Range of Motion Respiratory: Lungs Clear Cardiovascular: Regular Rate, Rhythm Capillary Refill: Less Than 3 Seconds Extremity: Non Tender, No Calf Tenderness Neurologic/Psychiatric: Alert; No Oriented x3 (Seemed ) Skin: Normal Color, Warm/Dry Lymphatic: No Adenopathy Results Lab Laboratory Tests 09/14/19 08:12 09/14/19 16:26 09/15/19 02:50 09/15/19 04:00 09/15/19 13:20 09/16/19 03:25 Assessment/Plan Assessment/Plan Mental status changes s/p seizure witnessed -Keppra 1gm Q 12 -Add Phenantoin \\ -Check MRI secondary to persistent seizures Severe left shoulder pain -Check MRI ARF -IVF and monitor Hyperphos -Start phos lo Metabolic/respiratory acidosis ARF CAD HX of drug use COPD hx -Currently on RA Alcohol dependance RICARDA COVINGTON DO Sep 16, 2019 05:47 POS
[2019-09-16] MEDS: hydrALAZINE (APESOLINE) 20 MG/ML VIAL IV PRN ×3 (06:54→23:18)
[2019-09-16] MEDS: ENOXAPARIN 40 MG/0.4 ML (LOVENOX) SYR SC SCH (06:54)
--- NOTE | 2019-09-16 07:51 | Diagnostic Imaging Report ---
CHEST 1 VIEW, AP/PA ONLY Indication: Dyspnea Comparison: 09/15/2019. Findings: No focal airspace disease in the visualized lungs. Please note that the posterior lower lobes are poorly evaluated by portable radiography. No pleural effusion or pneumothorax. Normal cardiomediastinal silhouette. Stable left subclavian Port-A-Cath. Impression: 1. No acute cardiopulmonary process by portable radiography. Dictated by: Dictated on workstation # [id number]
[2019-09-16] MEDS ORDERED: MIDAZOLAM 2 MG/2 ML (VERSED) VIAL ONE (07:59)
[2019-09-16] MEDS ORDERED: proPOfol 200 MG/20 ML (DIPRIVAN) VIAL IV ONE (07:59)
[2019-09-16] MEDS: LEVETIRACETAM INJECTION 1,000 MG in NS (IVPB) 100 ML IV SCH ×2 (08:34→21:17)
[2019-09-16] MEDS: amLODIPine 10 MG (NORVASC) TAB PO SCH (08:35)
[2019-09-16] MEDS: hydrALAZINE (APRESOLINE) 25 MG TAB PO SCH ×3 (08:35→21:19)
[2019-09-16] MEDS: meTOprolol SUCCINATE 100 MG (TOPROL XL) TAB PO SCH (08:35)
[2019-09-16] MEDS: PHENYTOIN 100 MG (DILANTIN) CAP PO SCH ×2 (08:35→21:17)
[2019-09-16] MEDS: cloNIDine 0.2 MG (CATAPRES) TAB PO SCH ×2 (08:35→21:17)
[2019-09-16] MEDS: CALCIUM ACETATE 667 MG CAP (PHOSLO) PO SCH ×3 (08:54→18:28)
[2019-09-16] MEDS: DEXMEDETOMIDINE 1,000 MCG/NS 250 ML IV SCH ×2 (09:09)
--- NOTE | 2019-09-16 09:22 | NUR ---
PATIENT HAD SEIZURE STARTED AT 915 2MG OF ATIVAN 917 SEIZURE SLOWED AT THIS TIME, SEIZURE BEGAN BACK UP AT 918 2 MG OF ATIVAN ADMINISTERED AGAIN AT 919, SEIZURE ENDED AT 920. PATIENT OPENED EYES, NO RESPONSE, OXYGEN APPLIED DURING SEIZURE VIA NON REBREATHER MASK. PATIENT IS NOW POSTICTAL
--- NOTE | 2019-09-16 10:31 | Progress Note - Hospitalist ---
[facility] 09/16/19 1031: Subjective HPI/CC On Admission Date Seen by Provider: Sep 16, 2019 Time Seen by Provider: 08:00 Chief complaint: Altered mental status post seizure History of present illness: This is a 58-year-old white female clinic patient of [facility] well-known to me from multiple hospital stays usually every other week due to some sort of complication following a major seizure. She was found to have acute renal failure and altered mental status in need of close monitoring. She did improve and we are contemplating moving down to fourth floor by Dr. Balderrama checked an ABG revealed pH is 7.2 and she was hyperkalemic so she was kept in the ICU and close monitoring and aggressive critical care medicine management was required. Currently patient recognizes me she is able to talk and she did eat supper. Subjective/Events-last exam Patient was much more alert and oriented today Patient stated that she was tired and but overall felt fine Patient will be receiving an MRI of her brain today There was a nurse report of a seizure at 2300 and 0200. Ativan was administered Potassium is now 4.8 Review of Systems General: No Chills, No Other (fevers) HEENT: No Eye Pain, No Ear Pain Pulmonary: No Dyspnea, No Cough Cardiovascular: No: Chest Pain, Palpitations Gastrointestinal: No: Nausea, Vomiting Musculoskeletal: shoulder pain Focused Exam Lactate Level 09/15/19 05:50: Lactic Acid Level 0.94 Objective Exam Vital Signs Vital Signs Date Time Temp Pulse Resp B/P (MAP) Pulse Ox O2 Delivery O2 Flow Rate FiO2 09/16/19 09:25 Non Rebreather 4.00 09/16/19 09:00 105 30 164/90 (114) 97 09/15/19 20:00 36.1 09/14/19 17:52 30 Capillary Refill : Less Than 3 SecondsLess Than 3 Seconds General Appearance: No Apparent Distress, WD/WN Neck: Normal Inspection, Non Tender Respiratory: Lungs Clear, Normal Breath Sounds, No Accessory Muscle Use, No Respiratory Distress, Other (Tenderness on Left side of chest where port was placed) Cardiovascular: Regular Rate, Rhythm, No Edema, No Murmur, Normal Peripheral Pulses (2/4 peripheral ) Extremity: Non Tender, No Calf Tenderness Neurologic/Psychiatric: Alert, Oriented x3, Normal Mood/Affect Skin: Normal Color, Warm/Dry Results/Procedures Lab Laboratory Tests 09/15/19 13:20 09/16/19 03:25 Patient resulted labs reviewed. Assessment/Plan Assessment and Plan Assess & Plan/Chief Complaint Seizures History of drug use Renal Insufficiency MRI of Head because of seizures IV fluids Continue to monitor vitals Benzodiazepines for seizure Prophylaxis Clinical Quality Measures DVT/VTE Risk/Contraindication: Risk Factor Score Per Nursin RFS Level Per Nursing on Admit: 1=Low/No VTE PPX DEEPIKA VALDOVINOS DO 09/16/19 2220: Subjective Subjective/Events-last exam PT and OT will be ordered. Holding in the ICU due to status epilepticus at times. MRI will be done today. Port placed, left anterior chest wall. Chest X-ray was negative. Unrelenting seizures preclude us from moving out of the ICU. Review of Systems General: Fatigue Objective Exam General Appearance: No Apparent Distress, WD/WN, Chronically ill Respiratory: Lungs Clear Cardiovascular: Regular Rate, Rhythm Assessment/Plan Assessment and Plan Assess & Plan/Chief Complaint Seizure treatment Diagnosis/Problems Diagnosis/Problems (1) Seizure disorder Status: Chronic Supervisory-Addendum Brief Verification & Attestation Participated in pt care: history, MDM, physical Personally performed: exam, history, MDM, supervision of care Care discussed with: Medical Student Procedures: n/a Results interpretation: Verified all documentation Verification and Attestation of Medical Student E/M Service A medical student performed and documented this service in my presence. I reviewed and verified all information documented by the medical student and made modifications to such information, when appropriate. I personally performed the physical exam and medical decision making. Deepika Valdovinos, Sep 16, 2019,22:20 JAIMIE CHAPARRO MED STUD Sep 16, 2019 10:31 DEEPIKA GRECO DO Sep 16, 2019 22:20 POS
--- NOTE | 2019-09-16 11:56 | NUR ---
PATIENT BEGAN HAVING A SEIZURE AT APPROX 1156, ATIVAN ADMINISTERED AT THIS TIME, SEIZURE STOPPED AT 1156. OXYGEN APPLIED DURING SEIZURE ACTIVITY.
--- NOTE | 2019-09-16 12:22 | Diagnostic Imaging Report ---
PROCEDURE: MR imaging of the brain without contrast. TECHNIQUE: Multiplanar, multisequence MR imaging of the brain was performed without contrast. INDICATION: Seizures. Study is limited. Procedure had to be terminated early. FINDINGS: No diffusion restriction is seen to suggest acute ischemia. The normal expected flow voids within the carotid siphons are seen. Mild periventricular white matter changes are noted. T1-weighted as well as gradient sequences could not be obtained. IMPRESSION: Limited study. No diffusion restriction is seen to suggest acute ischemia. Dictated by: Dictated on workstation # [id number]
--- NOTE | 2019-09-16 13:23 | Consultation-Cardiology ---
HPI-Cardiology Cardiology Consultation: Date of Consultation 09/16/19 Date of Admission Attending Physician Deepika Patel DO Admitting Physician [facility] Consulting Physician Paolo JENKINS MD HPI: Time Seen by a Provider: 13:00 Chief Complaint: Seizure disorder. this is a 58-year-old lady who I first saw as an inpatient consultation on 02/21/2018. I saw her because of complains of chest pain and shortness of breath. She was noted to have borderline positive troponin and elevated d- dimer. Her blood pressure was significantly elevated. She has previous history of tricuspid valve vegetation in 2013. She received prolonged IV antibiotics at that point in time. She has not used IV drugs for the last 3 years. She denies active smoking. she has history of nonischemic cardiomyopathy, acute systolic congestive heart failure, severe hypertension, chronic kidney disease, VQ scan was done to rule out PE which was negative. GFR was 52. Echocardiogram done on 02/21/2018 showed an EF of 30 percent with [id number] concentric LVH. Grade 2 diastolic dysfunction. PA pressure 61 mmHg. Dilated left atrium with diameter of 4.75 cm. Moderate to severe mitral valve regurgitation with peak ve locity of 7.4 m/s. Moderate to severe regurgitation. Coronary angiography was performed on 02/22/2018 which showed mild CAD. EF 30 percent. Global hypokinesis. Mild ostial right renal artery disease. She was discharged on Lasix, lisinopril, metoprolol, Aldactone. She was supposed to follow cardiology in 7-10 days but was lost to follow-up. We were able to get her a LifeVest for primary prevention of sudden cardiac . Repeat Echo done 07/2018 shows LVEF 35-40%. SURY done which does not demonstrate severe MR (mild to moderate MR). She was started on goal-directed medical therapy with angiotensin receptor lei, Aldactone and hydralazine. She was also restarted on beta lei. Since LVEF of 35-40 percent, a lifevest was discontinued. We'll continue to follow mild to moderate mitral regurgitation and moderate tricuspid regurgitation. Nephrology referral was done for chronic kidney disease. The patient presented this time around with major seizure disorder. She was found to have acute on chronic kidney injury and altered mental status. She was also found to be acidotic with hyperkalemia and therefore admitted to the ICU. The patient is significantly better. She denies any significant cardiac complaints including chest pain, shortness of breath, syncope or near syncope. Review of Systems-Cardiology Review of Systems Constitutional: As described under HPI; No As described under HPI, No no symptoms reported, No chills, No fever, No lightheadedness Eyes: No As described under HPI, No no symptoms reported, No blindness, No blurred vision, No contact lenses, No drainage, No decreased acuity, No foreign body sensation, No pain, No vision change Ears/Nose/Throat: No As described under HPI, No no symptoms reported, No chronic hearing loss, No ear discharge, No ear pain, No nasal drainage, No ulcerations Respiratory: No no symptoms reported; As described under HPI; No As described under HPI, No cough, No orthopnea, No shortness of breath, No SOB with excertion Cardiovascular: No no symptoms reported; As described under HPI; No As described under HPI, No chest pain, No edema, No irregular heart rate, No lightheadedness, No palpitations Gastrointestinal: No no symptoms reported, No As described under HPI, No abdomen distended, No abdominal pain, No blood streaked bowels, No constipation, No diarrhea, No nausea, No vomiting, No stool coloration changes Genitourinary: No As described under HPI, No burning, No dysuria, No discharge, No frequency, No flank pain, No hematuria, No urgency : Yes : No Skin: No rash, No skin related problems, No ulcerations Psychiatric/Neurological: No anxiety, No depression, No seizure, No focal weakness, No syncope Hematologic: No bleeding abnormalities All Other Systems Reviewed Negative Unless Noted: Yes JNA-Hcsaia-Ffzvlz Hx Patient Social History Marrital Status: single Employed/Student: unemployed Alcohol Use: Denies Use Recreational 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) Drug of Choice: + IV METH USE, THC USE Smoking Status: Current Everyday Smoker Former smoker/When Quit: Oct 13, 2007 Type Used: Cigarettes 2nd Hand Smoke Exposure: Yes Recent Foreign Travel: No Recent Infectious Disease Expo: No Immunizations Up To Date Tetanus Booster (TDap): Less than 5yrs Date of Pneumonia Vaccine: Jul 13, 2012 Date of Influenza Vaccine: Jul 15, 2019 Past Medical History PMH As described under Assessment. Family Medical History Family History: Abdominal aortic aneurysm 03 FATHER Alcoholism 03 FATHER 03 MOTHER 09 SISTER 09 SISTER Cancer 03 FATHER Cataract 03 FATHER 03 MOTHER Chest pain 03 MOTHER Family history: Diabetes mellitus 03 MOTHER Family history: Hypertension 03 MOTHER Family history: Thyroid disorder 03 MOTHER Headache 09 SISTER Heart disease 03 MOTHER History of drug abuse 03 FATHER 09 SISTER Myocardial infarction 03 MOTHER No Family History of: [place]'s disease Aphasia Cancer of colon Congenital heart disease Congestive heart failure Cystic fibrosis Dementia Dysphagia Family history: Allergy Family history: Alzheimer's disease Family history: Arthritis Family history: Asthma Family history: Breast disease Family history: Cardiovascular disease Family history: Coronary thrombosis Family history: Gastrointestinal disease Family history: Glaucoma Family history: Osteoporosis Hearing loss Hereditary disease History of - anemia History of - disorder History of - respiratory disease Human immunodeficiency virus (HIV) seropositivity Hypercholesterolemia Infertile Kidney disease Malignant neoplasm of lung Parkinson's disease Prostate cancer Psychotic disorder Seizure disorder Stroke Tuberculosis Visual impairment Allergies and Home Medications Allergies Coded Allergies: nitrous oxide (Verified Allergy, Unknown, 06/08/07) Home Medications Acetaminophen 500 Mg Tablet, 1,000 MG PO Q6H PRN for PAIN-MILD, (Reported) Amlodipine Besylate 10 Mg Tablet, 10 MG PO DAILY, (Reported) LAST FILLED #30 07-05-19 Aspirin 81 Mg Tab.chew, 81 MG PO DAILY, (Reported) Clonidine HCl 0.2 Mg Tablet, 0.4 MG PO BID, (Reported) TAKES 2 (0.2MG) TABLETS Cyclobenzaprine HCl 10 Mg Tablet, 10 MG PO TID PRN for MUSCLE SPASMS, (Reported) Hydralazine HCl 50 Mg Tablet, 50 MG PO TID, (Reported) Levetiracetam 500 Mg Tablet, 500 MG PO BID, (Reported) Loratadine 10 Mg Tablet, 10 MG PO DAILY, (Reported) Losartan Potassium 100 Mg Tablet, 100 MG PO DAILY, (Reported) Metoprolol Succinate 100 Mg Tab.er.24h, 100 MG PO DAILY, (Reported) Oxcarbazepine 600 Mg Tablet, 600 MG PO BID, (Reported) Prazosin HCl 1 Mg Capsule, 1 MG PO HS, (Reported) Ranitidine HCl 150 Mg Tablet, 150 MG PO HS, (Reported) LAST FILLED #30 08-03-19 Spironolactone 25 Mg Tablet, 25 MG PO DAILY, (Reported) LAST FILLED #30 08-03-19 Patient Home Medication List Home Medication List Reviewed: Yes Physical Exam-Cardiology Physical Exam Vital Signs/I&O 09/16/19 09/17/19 09/17/19 09/17/19 23:00 00:00 00:00 00:00 Temp 36.9 Pulse 80 85 Resp 19 21 B/P (MAP) 179/103 (128) 138/89 (105) Pulse Ox 93 89 O2 Delivery Nasal Cannula Nasal Cannula Room Air O2 Flow Rate 2.00 2.00 09/17/19 09/17/19 09/17/19 09/17/19 00:46 01:00 02:00 03:00 Pulse 79 98 74 76 Resp 15 26 38 B/P (MAP) 129/109 (116) 130/75 (93) 127/99 (108) Pulse Ox 99 98 98 O2 Delivery Nasal Cannula Nasal Cannula Nasal Cannula O2 Flow Rate 2.00 2.00 2.00 09/17/19 09/17/19 09/17/19 09/17/19 04:00 04:00 04:00 05:00 Temp 36.1 Pulse 70 68 Resp 15 15 B/P (MAP) 137/76 (96) 163/86 (111) Pulse Ox 100 98 O2 Delivery Nasal Cannula Nasal Cannula Nasal Cannula O2 Flow Rate 2.00 2.00 2.00 09/17/19 09/17/19 09/17/19 09/17/19 06:00 06:38 07:00 07:00 Pulse 69 75 89 Resp 14 16 B/P (MAP) 155/91 (112) 128/63 (84) Pulse Ox 100 100 100 O2 Delivery Nasal Cannula Nasal Cannula Nasal Cannula O2 Flow Rate 2.00 2.00 2.00 09/17/19 09/17/19 09/17/19 09/17/19 07:35 07:45 08:00 09:00 Temp 36.3 Pulse 90 81 Resp 27 16 B/P (MAP) 144/66 (92) 128/66 (86) Pulse Ox 100 97 O2 Delivery Room Air Nasal Cannula Nasal Cannula O2 Flow Rate 2.00 2.00 09/17/19 10:00 Pulse 79 Resp 21 B/P (MAP) 133/64 (87) Pulse Ox 92 O2 Delivery Nasal Cannula O2 Flow Rate 2.00 09/17/19 00:00 Intake Total 2675 ml Output Total 2175 ml Balance 500 ml Capillary Refill : Less Than 3 SecondsLess Than 3 Seconds Constitutional: appears stated age, AAO x 3; No apparent distress; well- developed, well-nourished HEENT: PERRL; No discharge; hearing is well preserved, oral hygience is good; No ulceration, No xanthelasmas are seen Neck: No carotid bruit; carotid pulses are 2 + bilaterally Respiratory: chest is bilaterally symmetric, lungs clear to auscultation Cardiovascular: regular rate-rhythm, S1 and S2 Gastrointestinal: soft, audible bowel sounds; No spleenomegaly Rectal: deferred Extremities: normal range of motion, non-tender, normal inspection; No clubbing, No cyanosis; no lower extremity edema bilateral; No significant edema Neurologic/Psychiatric: no motor/sensory deficits, alert, normal mood/affect, oriented x 3, power is 5/5 both on sides Skin: normal color, warm/dry; No rash, No ulcerations Data Review Labs Laboratory Tests 09/16/19 12:02: Glucometer 189H 09/16/19 15:40: Glucometer 128H 09/16/19 20:46: Glucometer 84 09/17/19 03:01: White Blood Count 4.5, Red Blood Count 3.65L, Hemoglobin 10.5L, Hematocrit 33L, Mean Corpuscular Volume 90, Mean Corpuscular Hemoglobin 29, Mean Corpuscular Hemoglobin Concent 32, Red Cell Distribution Width 14.2, Platelet Count 225, Mean Platelet Volume 10.0, Neutrophils (%) (Auto) 49, Lymphocytes (%) (Auto) 36, Monocytes (%) (Auto) 8, Eosinophils (%) (Auto) 7, Basophils (%) (Auto) 0, Neutro phils # (Auto) 2.2, Lymphocytes # (Auto) 1.6, Monocytes # (Auto) 0.4, Eosinophils # (Auto) 0.3, Basophils # (Auto) 0.0, Sodium Level 137, Potassium Level 4.9, Chloride Level 108H, Carbon Dioxide Level 20L, Anion Gap 9, Blood Urea Nitrogen 40H, Creatinine 1.30, Estimat Glomerular Filtration Rate 42, BUN/Creatinine Ratio 31, Glucose Level 99, Calcium Level 8.7, Phosphorus Level 5.3H, Magnesium Level 1.8 Microbiology 09/14/19 MRSA Screen - Final, Complete MRSA not isolated A/P-Cardiology Assessment/Admission Diagnosis Major seizure disorder, Altered mental status, Acute on chronic kidney disease, Acidosis, hyperkalemia, Mild CAD, Nonischemic cardiomyopathy, Moderate mitral regurgitation, Moderate tricuspid regurgitation, Hypertension Plan Major seizure disorder, deferred to the primary team. Altered mental status, likely secondary to seizure disorder as well as metabolic causes. Acute on chronic kidney disease, improved kidney function. Acidosis, hyperkalemia, aggressive treatment resulted in improvement. Mild CAD, stable with no issues. Nuclear stress test done on 07/08/2019 which showed normal myocardial perfusion imaging during rest and stress. Nonischemic cardiomyopathy, not in acute congestive heart failure. Continue outpatient medical therapy. Echocardiogram done on 08/16/2019 shows normal LV function with an EF of 55-65 percent. Grade 2 diastolic dysfunction. Mildly dilated left atrium. Moderate mitral regurgitation. Moderate tricuspid regurgitation. PA pressure of 45 mmHg. Moderate mitral regurgitation, no active issues. Moderate tricuspid regurgitation, clinically stable. Hypertension, well controlled. Continue outpatient medical therapy. Thank you for your consultation. Please call me if you have any questions. Brinda Jenkins MD, FACP, FACC, FSCAI, FHRS, CCDS Interventional Cardiology Cardiac Electrophysiology Vascular Medicine and Endovascular Interventions Clinical Quality Measures DVT/VTE Risk/Contraindication: Risk Factor Score Per Nursin RFS Level Per Nursing on Admit: 1=Low/No VTE PPX Paolo JENKINS MD Sep 16, 2019 13:23 POS
--- NOTE | 2019-09-16 14:55 | Physical Therapy Progress Note ---
Therapy Progress Note Nursing reports seizures today during STS transfers and recommend to begin therapy tomorrow. PT will attempt evaluation tomorrow when patient stable. ANURAG GENTILE PT Sep 16, 2019 14:54 POS
--- NOTE | 2019-09-16 15:10 | Occ Therapy Progress Note ---
Therapy Progress Note Attempted to see/ eval pt at 1245 and 1440 on this date. Per nursing, pt postictal at 1245. Nursing reports seizures today during STS transfers and recommend to begin therapy tomorrow at 1440. OT will attempt eval/ treat following date. NUPUR VILLARREAL OTR Sep 16, 2019 15:10 POS
[2019-09-16] MEDS: ACETAMINOPHEN 500 MG TAB (TYLENOL) PO PRN (19:17)
[2019-09-16] MEDS ORDERED: KETOROLAC 30 MG/ML VIAL IV ONE (23:45)
[2019-09-16] MEDS ORDERED: NS IV 500 ML 500 ML IV SCH (23:45)
[2019-09-17] VITALS (27 sets, daily range): BP systolic 79–205; BP diastolic 46–113
[2019-09-17 03:07] LABS: BASOPHILS % (AUTO) 0 % (0-10); EOSINOPHILS # (AUTO) 0.3 10^3/uL (0.0-0.3); EOSINOPHILS % (AUTO) 7 % (0-10); HEMATOCRIT 33 % (35-52); HEMOGLOBIN 10.5 G/DL (11.5-16.0); LYMPHOCYTES # (AUTO) 1.6 X 10^3 (1.0-4.0); LYMPHOCYTES % (AUTO) 36 % (12-44); MEAN CORPUSCULAR HEMOGLOBIN 29 PG (25-34); MEAN CORPUSCULAR HGB CONC 32 G/DL (32-36); MEAN CORPUSCULAR VOLUME 90 FL (80-99); MONOCYTES # (AUTO) 0.4 X 10^3 (0.0-1.0); MONOCYTES % (AUTO) 8 % (0-12); NEUTROPHILS # (AUTO) 2.2 X 10^3 (1.8-7.8); NEUTROPHILS % (AUTO) 49 % (42-75); PLATELET COUNT 225 10^3/uL (130-400); RED CELL DISTRIBUTION WIDTH 14.2 % (10.0-14.5); WHITE BLOOD COUNT 4.5 10^3/uL (4.3-11.0)
[2019-09-17 03:37] LABS: CALCIUM 8.7 MG/DL (8.5-10.1); CREATININE SERUM 1.3 MG/DL (0.60-1.30); MAGNESIUM 1.8 MG/DL (1.6-2.4); PHOSPHORUS 5.3 MG/DL (2.3-4.7); POTASSIUM 4.9 MMOL/L (3.6-5.0)
--- NOTE | 2019-09-17 04:55 | Pulmonary Progress Note ---
Subjective Time Seen by a Provider: 04:55 Subjective/Events-last exam No seizures last night. Complains of TRIMBLE and left shoulder pain. Sepsis Event Evaluation Height, Weight, BMI Height: 5'3.00" Weight: 155lbs. 8.0oz. [id number]; 29.00 BMI Method:Stated Focused Exam Lactate Level 09/15/19 05:50: Lactic Acid Level 0.94 Exam Exam Vital Signs Date Time Temp Pulse Resp B/P (MAP) Pulse Ox O2 Delivery O2 Flow Rate FiO2 09/17/19 01:00 98 15 129/109 (116) 99 Nasal Cannula 2.00 09/17/19 00:46 79 09/17/19 00:00 85 21 138/89 (105) 89 Nasal Cannula 2.00 09/17/19 00:00 36.9 09/16/19 23:00 80 19 179/103 (128) 93 Nasal Cannula 2.00 09/16/19 22:00 80 19 155/90 (111) 96 Nasal Cannula 2.00 09/16/19 21:00 78 22 153/77 (102) 94 Nasal Cannula 2.00 09/16/19 20:00 80 23 141/73 (95) 94 Nasal Cannula 2.00 09/16/19 20:00 36.2 09/16/19 19:00 85 33 161/89 (113) 96 Nasal Cannula 2.00 09/16/19 18:45 84 09/16/19 18:10 97 Room Air 09/16/19 18:00 80 28 158/98 (118) 92 Nasal Cannula 2.00 09/16/19 17:00 84 27 161/95 (117) 95 Nasal Cannula 2.00 09/16/19 16:00 80 28 163/102 (122) 98 Nasal Cannula 2.00 09/16/19 16:00 Room Air 09/16/19 15:00 72 20 135/79 (97) 94 Nasal Cannula 2.00 09/16/19 14:20 94 Room Air 09/16/19 14:00 73 18 121/59 (79) 92 Nasal Cannula 2.00 09/16/19 13:00 86 33 111/94 (100) 95 Nasal Cannula 2.00 09/16/19 12:23 71 09/16/19 12:00 Room Air 09/16/19 12:00 78 17 139/57 (84) Nasal Cannula 2.00 09/16/19 12:00 35.9 09/16/19 11:00 75 27 132/60 (84) 100 Nasal Cannula 2.00 09/16/19 10:00 104 16 150/87 (108) 99 Non Rebreather 4.00 09/16/19 09:25 Non Rebreather 4.00 09/16/19 09:00 105 30 164/90 (114) 97 Nasal Cannula 2.00 09/16/19 08:11 Room Air 09/16/19 08:00 102 34 113/96 (102) 97 Nasal Cannula 2.00 09/16/19 07:00 90 26 182/109 (133) 97 Nasal Cannula 2.00 09/16/19 07:00 110 09/16/19 06:46 96 Room Air 09/16/19 06:00 81 20 207/109 (141) 97 Nasal Cannula 2.00 09/16/19 05:00 85 29 169/102 (124) 92 Nasal Cannula 2.00 I & O 09/17/19 07:00 Intake Total 2075 ml Output Total 1575 ml Balance 500 ml Height & Weight Height: 5'3.00" Weight: 155lbs. 8.0oz. 70.921901rd; 29.00 BMI Method:Stated General Appearance: No Apparent Distress, WD/WN, Chronically ill HEENT: PERRL/EOMI, Normal ENT Inspection, Pharynx Normal, Moist Mucous Membranes Neck: Normal Inspection, Non Tender Respiratory: Lungs Clear Cardiovascular: Regular Rate, Rhythm Capillary Refill: Less Than 3 Seconds Extremity: Non Tender, No Calf Tenderness Neurologic/Psychiatric: Alert, Oriented x3, Normal Mood/Affect Skin: Normal Color, Warm/Dry Lymphatic: No Adenopathy Results Lab Laboratory Tests 09/15/19 13:20 09/16/19 03:25 09/17/19 03:01 Assessment/Plan Assessment/Plan Mental status changes s/p seizure witnessed -Last seizure 11:50am 09/16 -Keppra 1gm Q 12 -Phenantoin -Check MRI secondary to persistent seizures ARF -IVF and monitor Hyperphos -phos lo Metabolic/respiratory acidosis ARF CAD HX of drug use COPD hx -Currently on RA Alcohol dependance RICARDA COVINGTON DO Sep 17, 2019 04:55 POS
[2019-09-17] MEDS: NS IV 1000 ML 1,000 ML IV SCH ×3 (05:49→19:40)
[2019-09-17] MEDS: inSUlin ASPART (NovoLOG) 1 UNIT/0.01 ML (CHARGE PER UNIT) SC SCH ×4 (06:08→23:32)
[2019-09-17] MEDS: ENOXAPARIN 40 MG/0.4 ML (LOVENOX) SYR SC SCH (06:16)
[2019-09-17] MEDS: CALCIUM ACETATE 667 MG CAP (PHOSLO) PO SCH ×3 (06:16→18:16)
[2019-09-17] MEDS: hydrALAZINE (APESOLINE) 20 MG/ML VIAL IV PRN (06:54)
[2019-09-17] MEDS: PHENYTOIN 100 MG (DILANTIN) CAP PO SCH ×2 (07:35→20:40)
[2019-09-17] MEDS: cloNIDine 0.2 MG (CATAPRES) TAB PO SCH ×2 (07:36→20:36)
[2019-09-17] MEDS: ACETAMINOPHEN 500 MG TAB (TYLENOL) PO PRN (07:36)
[2019-09-17] MEDS: meTOprolol SUCCINATE 100 MG (TOPROL XL) TAB PO SCH (07:37)
[2019-09-17] MEDS: amLODIPine 10 MG (NORVASC) TAB PO SCH (07:37)
[2019-09-17] MEDS: SODIUM BICARBONATE 650 MG TABLET (NON-FORMULARY) PO SCH ×3 (07:37→20:40)
[2019-09-17] MEDS: hydrALAZINE (APRESOLINE) 25 MG TAB PO SCH ×3 (07:37→20:36)
[2019-09-17] MEDS: LORazepam INJ 2 MG/ML (ATIVAN) VIAL IVP PRN ×2 (07:53→16:17)
--- NOTE | 2019-09-17 07:54 | NUR ---
patient called out to this nurse stating "Nurse, Nurse" et began having seizure at 0749, seizure lasted until 0752. 4mg IV ativan administered. O2 on at 2l, patient now sating 100%. Resting with eyes closed.
--- NOTE | 2019-09-17 08:16 | Diagnostic Imaging Report ---
Portable erect AP chest at 3:19. Indication: Dyspnea. There is a better inspiratory effort on this study than on the prior exam of 09/16/2019. Allowing for this technical factor, the heart size is within normal limits and stable. The lungs are clear. There is no evidence for failure, pneumonia or for pleural effusion. The mediastinum is not widened. The osseous structures are intact. There is deformity of the midshaft of the right clavicle due to a long-standing fracture. The left-sided central venous catheter seen previously is unchanged in position. Impression: There is no evidence for active disease. When compared to the prior study there has been no significant change. Dictated by: Dictated on workstation # [id number]
[2019-09-17] MEDS: DEXMEDETOMIDINE 1,000 MCG/NS 250 ML IV SCH ×4 (08:52→18:15)
--- NOTE | 2019-09-17 10:32 | Cardiology Progress Note ---
Cardiology SOAP Progress Note Subjective: No cardiac complaints. Objective: I&O/Vital Signs 09/16/19 09/17/19 09/17/19 09/17/19 23:00 00:00 00:00 00:00 Temp 36.9 Pulse 80 85 Resp 19 21 B/P (MAP) 179/103 (128) 138/89 (105) Pulse Ox 93 89 O2 Delivery Nasal Cannula Nasal Cannula Room Air O2 Flow Rate 2.00 2.00 09/17/19 09/17/19 09/17/19 09/17/19 00:46 01:00 02:00 03:00 Pulse 79 98 74 76 Resp 15 26 38 B/P (MAP) 129/109 (116) 130/75 (93) 127/99 (108) Pulse Ox 99 98 98 O2 Delivery Nasal Cannula Nasal Cannula Nasal Cannula O2 Flow Rate 2.00 2.00 2.00 09/17/19 09/17/19 09/17/19 09/17/19 04:00 04:00 04:00 05:00 Temp 36.1 Pulse 70 68 Resp 15 15 B/P (MAP) 137/76 (96) 163/86 (111) Pulse Ox 100 98 O2 Delivery Nasal Cannula Nasal Cannula Nasal Cannula O2 Flow Rate 2.00 2.00 2.00 09/17/19 09/17/19 09/17/19 09/17/19 06:00 06:38 07:00 07:00 Pulse 69 75 89 Resp 14 16 B/P (MAP) 155/91 (112) 128/63 (84) Pulse Ox 100 100 100 O2 Delivery Nasal Cannula Nasal Cannula Nasal Cannula O2 Flow Rate 2.00 2.00 2.00 09/17/19 09/17/19 09/17/19 09/17/19 07:35 07:45 08:00 09:00 Temp 36.3 Pulse 90 81 Resp 27 16 B/P (MAP) 144/66 (92) 128/66 (86) Pulse Ox 100 97 O2 Delivery Room Air Nasal Cannula Nasal Cannula O2 Flow Rate 2.00 2.00 09/17/19 10:00 Pulse 79 Resp 21 B/P (MAP) 133/64 (87) Pulse Ox 92 O2 Delivery Nasal Cannula O2 Flow Rate 2.00 09/17/19 00:00 Intake Total 2675 ml Output Total 2175 ml Balance 500 ml Weight (Pounds): 155 Weight (Ounces): 8.0 Weight (Calculated Kilograms): 70.249256 Constitutional: appears stated age, AAO x 3; No apparent distress; well- developed, well-nourished Respiratory: chest is bilaterally symmetric, lungs clear to auscultation Cardiovascular: regular rate-rhythm, S1 and S2 Gastrointestional: soft, audible bowel sounds; No spleenomegaly Extremities: normal range of motion, non-tender, normal inspection; No clubbing, No cyanosis; no lower extremity edema bilateral; No significant edema Neurologic/Psychiatric: no motor/sensory deficits, alert, normal mood/affect, oriented x 3, power is 5/5 both on sides Skin: normal color, warm/dry; No rash, No ulcerations Results/Procedures: Labs Laboratory Tests 09/16/19 12:02: Glucometer 189H 09/16/19 15:40: Glucometer 128H 09/16/19 20:46: Glucometer 84 09/17/19 03:01: White Blood Count 4.5, Red Blood Count 3.65L, Hemoglobin 10.5L, Hematocrit 33L, Mean Corpuscular Volume 90, Mean Corpuscular Hemoglobin 29, Mean Corpuscular Hemoglobin Concent 32, Red Cell Distribution Width 14.2, Platelet Count 225, Mean Platelet Volume 10.0, Neutrophils (%) (Auto) 49, Lymphocytes (%) (Auto) 36, Monocytes (%) (Auto) 8, Eosinophils (%) (Auto) 7, Basophils (%) (Auto) 0, Neutrophils # (Auto) 2.2, Lymphocytes # (Auto) 1.6, Monocytes # (Auto) 0.4, Eosinophils # (Auto) 0.3, Basophils # (Auto) 0.0, Sodium Level 137, Potassium Level 4.9, Chloride Level 108H, Carbon Dioxide Level 20L, Anion Gap 9, Blood Urea Nitrogen 40H, Creatinine 1.30, Estimat Glomerular Filtration Rate 42, BUN/Creatinine Ratio 31, Glucose Level 99, Calcium Level 8.7, Phosphorus Level 5.3H, Magnesium Level 1.8 Microbiology 09/14/19 MRSA Screen - Final, Complete MRSA not isolated A/P: Assessment/Dx: Major seizure disorder, Altered mental status, Acute on chronic kidney disease, Acidosis, hyperkalemia, Mild CAD, Nonischemic cardiomyopathy, Moderate mitral regurgitation, Moderate tricuspid regurgitation, Hypertension Plan: Major seizure disorder, deferred to the primary team. Altered mental status, likely secondary to seizure disorder as well as metabolic causes. Resolved. Acute on chronic kidney disease, improved kidney function. Acidosis, hyperkalemia, aggressive treatment resulted in improvement. Mild CAD, stable with no issues. Nuclear stress test done on 07/08/2019 which showed normal myocardial perfusion imaging during rest and stress. Nonischemic cardiomyopathy, not in acute congestive heart failure. Continue outpatient medical therapy. Echocardiogram done on 08/16/2019 shows normal LV function with an EF of 55-65 percent. Grade 2 diastolic dysfunction. Mildly dilated left atrium. Moderate mitral regurgitation. Moderate tricuspid regurgitation. PA pressure of 45 mmHg. Moderate mitral regurgitation, no active issues. Moderate tricuspid regurgitation, clinically stable. Hypertension, well controlled. Continue outpatient medical therapy. Thank you for your consultation. Please call me if you have any questions. Brinda Jenkins MD, FACP, FACC, FSCAI, FHRS, CCDS Interventional Cardiology Cardiac Electrophysiology Vascular Medicine and Endovascular Interventions Focused Exam Lactate Level 09/15/19 05:50: Lactic Acid Level 0.94 Paolo JENKINS MD Sep 17, 2019 10:32 POS
[2019-09-17] MEDS: LEVETIRACETAM INJECTION 1,000 MG in NS (IVPB) 100 ML IV SCH ×2 (10:45→20:40)
--- NOTE | 2019-09-17 10:50 | NUR ---
attempted pastoral care visit, pt asleep
--- NOTE | 2019-09-17 11:03 | Occ Therapy Progress Note ---
Therapy Progress Note Nursing reports seizure this morning; pt to be shipped from [facility] facility for neuro assessments. D/c OT eval/ treat. NUPUR VILLARREAL OTR Sep 17, 2019 11:03 POS
--- NOTE | 2019-09-17 12:09 | Physical Therapy Progress Note ---
Therapy Progress Note PT re-attempted evaluation. Nursing stated arrangements are being made to transfer patient for neurology consultation and to defer treatment at this time. PT will continue to monitor patient's status and re-attempt evaluation tomorrow if patient does not transfer. ANURAG GENTILE PT Sep 17, 2019 12:09 POS
--- NOTE | 2019-09-17 13:43 | Discharge Summary ---
JAIMIE CHAPARRO [facility] 09/17/19 1343: Diagnosis/Chief Complaint Date of Admission Sep 14, 2019 at 10:38 Date of Discharge 09/17/2019 Discharge Date: Sep 17, 2019 Discharge Time: 14:00 Admission Diagnosis Assessment: AMS Post seizure Metabolic and respiratory acidosis Hyperkalemia ARF Previous ELIJAH CAD PVD COPD Plan: IVF Supportive care Hyperkalemia treatment [facility] Discharge Diagnosis Seizure disorder (1) Seizure disorder Status: Chronic Discharge Summary Procedures/Consulations Cardiology 09/14/19 Dr. Jenkins Pulmonology 09/15/19 Dr. Balderrama Discharge Physical Exam Allergies: Coded Allergies: nitrous oxide (Verified Allergy, Unknown, 06/08/07) Vitals & I&Os Vital Signs Date Time Temp Pulse Resp B/P (MAP) Pulse Ox O2 Delivery O2 Flow Rate FiO2 09/17/19 12:28 72 09/17/19 12:00 26 124/80 (95) 97 Nasal Cannula 2.00 09/17/19 07:35 36.3 09/14/19 17:52 30 General Appearance: No Apparent Distress, WD/WN, Other (Patient asleep in bed) Respiratory: Lungs Clear, Normal Breath Sounds, No Accessory Muscle Use, No Respiratory Distress Cardiovascular: Regular Rate, Rhythm, No Edema, No Murmur Extremity: No Pedal Edema Neurologic/Psychiatric: Alert, Oriented x3, Normal Mood/Affect Hospital Course Was the Problem List Reviewed?: Yes Patient was admitted on 09/14/19 and discharged on 09/17/19 and will be transferred to [facility]. Patient was admitted for seizure disorders and has a past medical history of seizures and Drug abuse. Dr. Jenkins (communications program manager), Dr. Balderrama (Junior Graphic Designer), Dr. Valdovinos (hospitalist) monitored and took care of patient. Patient received multiple x-rays, MRI, UA, CBC, CMP, ABG, and Toxicology. MRI was inconclusive because procedure had to be terminated early. Patient also received Groshong Line due to poor vein access. Patient had seizures throughout stay at hospital even with increase in levetiracetam from 500 to 1000 which prompted transfer to . The following information is only a summary of the patient admission while at [facility] and is not all inclusive. Please review entire marlene for more info. Labs (last 24 hrs) Laboratory Tests 09/16/19 15:40: Glucometer 128H 09/16/19 20:46: Glucometer 84 09/17/19 03:01: White Blood Count 4.5, Red Blood Count 3.65L, Hemoglobin 10.5L, Hematocrit 33L, Mean Corpuscular Volume 90, Mean Corpuscular Hemoglobin 29, Mean Corpuscular Hemoglobin Concent 32, Red Cell Distribution Width 14.2, Platelet Count 225, Mean Platelet Volume 10.0, Neutrophils (%) (Auto) 49, Lymphocytes (%) (Auto) 36, Monocytes (%) (Auto) 8, Eosinophils (%) (Auto) 7, Basophils (%) (Auto) 0, Neutrophils # (Auto) 2.2, Lymphocytes # (Auto) 1.6, Monocytes # (Auto) 0.4, Eosinophils # (Auto) 0.3, Basophils # (Auto) 0.0, Sodium Level 137, Potassium Level 4.9, Chloride Level 108H, Carbon Dioxide Level 20L, Anion Gap 9, Blood Urea Nitrogen 40H, Creatinine 1.30, Estimat Glomerular Filtration Rate 42, BUN/Creatinine Ratio 31, Glucose Level 99, Calcium Level 8.7, Phosphorus Level 5.3H, Magnesium Level 1.8 09/17/19 12:55: Glucometer 85 Microbiology 09/14/19 MRSA Screen - Final, Complete MRSA not isolated Patient resulted labs reviewed. Pending Labs Laboratory Tests 09/17/19 12:55: Glucometer 85 Imaging: Reviewed Imaging Films, Reviewed Imaging Report Discussion & Recommendations Discharge Planning: >30 minutes discharge planning Discharge Home Medications: Active Scripts Active Reported Cyclobenzaprine HCl 10 Mg Tablet 10 Mg PO TID PRN Loratadine 10 Mg Tablet 10 Mg PO DAILY Losartan Potassium 100 Mg Tablet 100 Mg PO DAILY Keppra (Levetiracetam) 500 Mg Tablet 500 Mg PO BID Clonidine HCl 0.2 Mg Tablet 0.4 Mg PO BID TAKES 2 (0.2MG) TABLETS Aspirin 81 Mg Tab.chew 81 Mg PO DAILY Spironolactone 25 Mg Tablet 25 Mg PO DAILY LAST FILLED #30 08-03-19 Metoprolol Succinate 100 Mg Tab.er.24h 100 Mg PO DAILY Amlodipine Besylate 10 Mg Tablet 10 Mg PO DAILY LAST FILLED #30 07-05-19 Hydralazine HCl 50 Mg Tablet 50 Mg PO TID Acid Agricultural Researcher (RANITIDINE) (Ranitidine HCl) 150 Mg Tablet 150 Mg PO HS LAST FILLED #30 08-03-19 Prazosin HCl 1 Mg Capsule 1 Mg PO HS Tylenol Extra Strength (Acetaminophen) 500 Mg Tablet 1,000 Mg PO Q6H PRN Oxcarbazepine 600 Mg Tablet 600 Mg PO BID Instructions to patient/family Please see electronic discharge instructions given to patient. Clinical Quality Measures DVT/VTE Risk/Contraindication: Risk Factor Score Per Nursin RFS Level Per Nursing on Admit: 1=Low/No VTE PPX DEEPIKA VALDOVINOS DO 09/18/19 0959: Diagnosis/Chief Complaint Discharge Diagnosis (1) Status epilepticus (2) Alteration consciousness Status: Acute Discharge Summary Discharge Physical Exam Allergies: Coded Allergies: nitrous oxide (Verified Allergy, Unknown, 06/08/07) General Appearance: No Apparent Distress, Chronically ill Respiratory: Lungs Clear, Normal Breath Sounds Cardiovascular: Regular Rate, Rhythm Hospital Course Was the Problem List Reviewed?: Yes Hospital course: PT had a lengthy hospital course for four days after she was admitted for altered mental status and seizure postictal state. Keppra was initiated 1000mg IV in addition to Dilantin. She still suffered multiple seizures a day requiring maintenance to the ICU. Renal function improved, overall became very stable, no longer acidotic respiratory or metabolic jade but due to the fact that she needed Neuro ICU after I called [facility] for transfer [facility] transfer was initiated but remained stable throughout the entire hospital course. I did place a Groshong port due to her severe poor venous access terminal clerk and she would require multiple hospital visits in the future as predicted. Discussion & Recommendations Discharge Planning: >30 minutes discharge planning Supervisory-Addendum Brief Verification & Attestation Participated in pt care: history, MDM, physical Personally performed: exam, history, MDM, supervision of care Care discussed with: Medical Student Procedures: n/a Results interpretation: Verified all documentation Verification and Attestation of Medical Student E/M Service A medical student performed and documented this service in my presence. I reviewed and verified all information documented by the medical student and made modifications to such information, when appropriate. I personally performed the physical exam and medical decision making. Deepika Valdovinos, Sep 18, 2019,09:58 JAIMIE CHAPARRO [facility] Sep 17, 2019 13:43 DEEPIKA GRECO DO Sep 18, 2019 09:59 POS
[2019-09-17] MEDS ORDERED: NS INJ NR ×3 (15:00)
[2019-09-17] MEDS ORDERED: PHENYTOIN INJ NR ×3 (15:00)
[2019-09-17] MEDS ORDERED: PHENYTOIN 250 MG/5 ML INJ (DILANTIN) VIAL IV ONE (15:00)
[2019-09-17] MEDS ORDERED: FILTER INJ NR ×3 (15:00)
--- NOTE | 2019-09-17 15:23 | NUR ---
NOTIFIED DR. VALDOVINOS DILANT[facility] WILL NOT BE BACK TODAY R/T IT BEING A SEND OUT LAB. DR. VALDOVINOS STATED OK TO GIVE LOADING DILANTIN NOW.
--- NOTE | 2019-09-17 15:30 | Physical Therapy Evaluation ---
PT Evaluation-General Medical Diagnosis Admission Date Sep 14, 2019 at 10:38 Medical Diagnosis: Seizures Onset Date: Sep 17, 2019 Therapy Diagnosis Therapy Diagnosis: debility/seizures Height/Weight Height (Feet): 5 Height (Inches): 3.00 Weight (Pounds): 155 Weight (Ounces): 8.0 Precautions Precautions/Isolations: Contact Isolation, Seizure, Fall Prevention Weight Bear Status Right Lower Extremity: Right Weight Bearing/Tolerated Left Lower Extremity: Left Weight Bearing/Tolerated Referral Physician: Jorge Reason for Referral: Evaluation/Treatment Medical History Pertinent Medical History: Arthritis, COPD, CVA, GERD, HTN, Renal Insufficiency, Smoking Additional Medical History seizure disorder Current History EMS secondary to seizure disorder Reviewed History: Yes Social History Current Living Status: Alone Prior Prior Level of Function SCALE: Activities may be completed with or without assistive devices. 0-Cxvsurkcgi-evxdiyr completes the activity by him/herself with no assistance from a helper. 5-Set-up or Clean-up Assistance-helper sets up or cleans up; patient completes activity. Chase assists only prior to or following the activity. 4-Supervision or Touching Assistance-helper provides verbal cues and/or touching/steadying and/or contact guard assistance as patient completes activity. Assistance may be provided throughout the activity or intermittently. 3-Partial/Moderate Assistance-helper does LESS THAN HALF the effort. Chase lifts, holds or supports trunk or limbs, but provides less than half the effort. 2-Substantial/Maximal Assistance-helper does MORE THAN HALF the effort. Chase lifts or holds trunk or limbs and provides more than half the effort. 9-Abmcgptts-fzcete does ALL the effort. Patient does none of the effort to complete the activity. Or, the assistance of 2 or more helpers is required for the patient to complete the activity. If activity was not attempted, code reason: 7-Patient Refused. 9-Not Applicable-not attempted and the patient did not perform the activity before the current illness, exacerbation or injury. 10-Not Attempted due to Environmental Limitations-(lack of equipment, weather restraints, etc.). 88-Not Attempted due to Medical Conditions or Safety Concerns. Bed Mobility: 6 Transfers (B,C,W/C): 6 Gait: 6 Stairs: 6 Indoor Mobility (Ambulation): Independent Stairs: Independent Prior Devices Use: Walker PT Evaluation-Current Subjective Patient agrees to PT. Objective Patient Orientation: Normal For Age Attachments: Oxygen, [place] Catheter, IV ROM/Strength ROM Lower Extremities bilateral LE WFL Strength Lower Extremities 4-/5 grossly bilateral LE Integumentary/Posture Integumentary refer to nursing notes Bowel Incontinence: No Bladder Incontinence: Yes Posture WLF Neuromuscular (Tone, Coordination, Reflexes) grossly intact Sensory Vision: Functional Hearing: Functional Sensation Right Lower Extremit: Impaired Sensation Left Lower Extremity: Impaired Transfers Roll Left to Right (QC): 5 Sit to Lying (QC): 5 Lying to Sitting/Side of Bed(Q: 5 Sit to Stand (QC): 4 Chair/Dee-dl-Qjcqe Xfer(QC): 4 Car Transfer (QC): 10 Gait Does the Patient Walk?: Yes Mode of Locomotion: Walk Anticipated Mode of Locomotion: Walk Walk 10 feet (QC): 88 Walk 50 ft with 2 Turns(QC): 88 Walk 150 ft (QC): 88 Walking 10ft/uneven surface-QC: 88 Gait Assistive Device: FWW Wheelchair Training Does the Pt Use a Wheelchair?: No Wheel 50 ft with 2 turns (QC): 9 Wheel 150 ft (QC): 9 Type of Wheelchair: Manual Stairs 1 Step (curb) (QC): 88 4 Steps (QC): 9 12 Steps (QC): 9 Balance Sitting Static: Normal Sitting Dynamic: Normal Standing Static: Fair Standing Dynamic: Fair Picking up an Object (QC): 88 Assessment/Needs 58 y.o. female, will benefit from skilled PT to address functional strength and mobility to improve current LOF to safely return to home at maximum LOF. Patient is currently suffering from uncontrolled seizures. Rehab Potential: Fair PT Tree Topper Goals Tree Topper Goals PT Tree Topper Goals Time Frame: Sep 25, 2019 Roll Left & Right (QC): 6 Sit to Lying (QC): 6 Lying-Sitting on Side/Bed(QC): 6 Sit to Stand (QC): 6 Chair/Hnl-gn-Ckslk Xfer(QC): 6 Toilet Transfer (QC): 6 Car Transfer (QC): 6 Does the Patient Walk: Yes Walk 10 feet (QC): 6 Walk 50ft with 2 Turns (QC): 6 Walk 150 ft (QC): 6 Walking 10ft on Uneven Surface: 6 1 Step (curb) (QC): 6 4 Steps (QC): 9 12 Steps (QC): 9 Picking up an Object (QC): 6 Does the Pt use WC or Scooter?: No Type: N/A Type: N/A PT Plan Problem List Problem List: Other (uncontrolled seizures) Treatment/Plan Treatment Plan: Continue Plan of Care Treatment Plan: Bed Mobility, Education, Functional Activity Bernie, Functional Strength, Gait, Safety, Therapeutic Exercise, Transfers Treatment Duration: Sep 25, 2019 Frequency: 6 times per week Estimated Hrs Per Day: .25 hour per day Patient and/or Family Agrees t: Yes Time/GCodes Time In: 1500 Time Out: 1513 Total Billed Treatment Time: 13 Total Billed Treatment 1 visit EVLowC 13 min ANURAG GENTILE PT Sep 17, 2019 15:30 POS
--- NOTE | 2019-09-17 16:12 | NUR ---
patient was talking on phone while this nurse was in room. Patient told caller she has to go shes all of the sudden very tired. Patient hung phone up, this nurse asked patient if she thought she was about to have a seizure, patient stated I don't know, I'm just suddenly very tired. at 1614 patient began seizing, seizure lasted until 1618. Patient was administered 4mg of ativan at time of seizure . post seizure patient eyes closed. VSS
--- NOTE | 2019-09-17 17:20 | NUR ---
2ND CALL PLACED TO EICU, PATIENT HAD ANOTHER SEIZURE. RECEIVED ORDER TO INTUBATE PATIENT AT THIS TIME. DR. VALDOVINOS, PATIENTS PRIMARY STATED OK WITH INTUBATION ET REACHED OUT TO DR. COVINGTON. VINER OPERATOR NOTIFIED OF NEED TO INTUBATE PATIENT AT THIS TIME, ET APPROPRIATE PARTIES CALLED FOR ASSIST. PATIENT ROOM WAS READIED FOR INTUBATION.
[2019-09-17] MEDS ORDERED: PROPOFOL DRIP (ICU) 100 ML IV ONE (17:22)
[2019-09-17] MEDS ORDERED: fentaNYL 1,250 MCG/NS 250 ML DRIP IV SCH ×2 (17:45)
--- NOTE | 2019-09-17 18:28 | Progress Note - Hospitalist ---
Subjective HPI/CC On Admission Date Seen by Provider: Sep 17, 2019 Time Seen by Provider: 18:15 Chief complaint: Altered mental status post seizure History of present illness: This is a 58-year-old white female clinic patient of [facility] well-known to me from multiple hospital stays usually every other week due to some sort of complication following a major seizure. She was found to have acute renal failure and altered mental status in need of close monitoring. She did improve and we are contemplating moving down to fourth floor by Dr. Balderrama checked an ABG revealed pH is 7.2 and she was hyperkalemic so she was kept in the ICU and close monitoring and aggressive critical care medicine management was required. Currently patient recognizes me she is able to talk and she did eat supper. Subjective/Events-last exam Called by RN due to status epilepticus Intubation recommended I updated Dr Balderrama I assessed the patient at the bedside and found her sedated s/p Ativan 8mg and central line placed right IJ and having no seizures [facility] refused patient transfer recommended [facility] refused transfer. Loaded Dilantin 1000mg IV x 1 Keppra 1000mg IV BID already on board Patient stable at this current time. Focused Exam Lactate Level 09/15/19 05:50: Lactic Acid Level 0.94 Objective Exam Vital Signs Vital Signs Date Time Temp Pulse Resp B/P (MAP) Pulse Ox O2 Delivery O2 Flow Rate FiO2 09/17/19 18:15 170/89 09/17/19 18:00 90 16 96 Nasal Cannula 2.00 09/17/19 16:00 36.4 09/14/19 17:52 30 Capillary Refill : Less Than 3 SecondsLess Than 3 Seconds General Appearance: No Apparent Distress, WD/WN, Chronically ill, Other (s edated) Results/Procedures Lab Laboratory Tests 09/17/19 03:01 Patient resulted labs reviewed. Imaging: Reviewed Imaging Films, Reviewed Imaging Report Assessment/Plan Assessment and Plan Assess & Plan/Chief Complaint Status epilepticus Plan: Intubation Central line Ativan Diagnosis/Problems Diagnosis/Problems (1) Status epilepticus (2) Seizure disorder Status: Chronic Clinical Quality Measures DVT/VTE Risk/Contraindication: Risk Factor Score Per Nursin RFS Level Per Nursing on Admit: 1=Low/No VTE PPX RAJAN VALDOVINOS DO Sep 17, 2019 18:28 POS
--- NOTE | 2019-09-17 18:31 | Diagnostic Imaging Report ---
INDICATION: Respiratory distress. Comparison with 3:19 a.m. FINDINGS: ET tube is now in good position overlying the tracheal shadow at the level of aortic arch. NG tube is present with tip extending into the antrum of stomach which is decompressed. Left Port-A-Cath remains present. Right jugular line is now present with tip overlying the superior vena caval shadow. The left lung is well-aerated and clear. There is volume loss in the right lower lung with atelectasis and infiltrate. The heart is not enlarged. No pulmonary edema. IMPRESSION: 1. Satisfactory tube and line placement. 2. Development of right lower lobe atelectasis and infiltrate since previous exam. Dictated by: Dictated on workstation # [id number]
[2019-09-17] MEDS ORDERED: ROCURONIUM 10 MG/ML 5 ML SYRINGE IV ONE (18:54)
[2019-09-17] MEDS ORDERED: ETOMIDATE IV SOLN 20 MG/10 ML VIAL IV ONE (18:54)
--- NOTE | 2019-09-17 18:55 | NUR ---
FROM [id number] PATIENT HAD 4 SEIZURES, AT 1700 EICU WAS CONTACTED REGARDING. EICU PHYSICIAN STATED MEDICATIONS ALL SEEM APPROPRIATE SHE IS CURRENTLY ON, THAT IF PATIENT HAS ANOTHER SEIZURE WE SHOULD LOOK AT AIRWAY PROTECTION WITH INTUBATION, BUT TO CONTACT THEM IF IT PERSISTS AGAIN. ATTEMPTED CALL TO DR. VALDOVINOS TO UPDATE AT THIS TIME, NO RESPONSE.
--- NOTE | 2019-09-17 19:43 | NUR ---
TIME LINE NOTE: 1729-VERBAL CONSENT FOR CENTRAL LINE FROM PATIENT 1736-20 ETOMADATE; 100 SHARMIN ADMINISTERED 174-8.0 TUBE BILAT BREATH SOUNDS 23@ LIP 1740-NO COLOR CHANGE, TUBE MIGRATED, INTUBATION FAILED, ETT REMOVED 1741-40 PROPOFOL ADMINISTERED 1741- TUBE IN, BILATERAL BREATH SOUNDS, 24 AT TEETH, COLOR CHANGE, CO2 WAVE FORM GOOD 1745-OG DOWN, PLACEMENT AUSCULTATED 1809-CENTRAL LINE PLACEMENT COMPLETED BY Gloria VILLA, DRIVER/[employer] 1839-CALL FROM Gloria VILLA STATING XRAY SHOWED GOOD PLACEMENT FOR CENTRAL LINE, OG, ET ETT, OK TO USE ALL. 1929-CALL FROM EICU REGARDING PATIENT BLOOD PRESSURE, PROPOFOL TURNED DOWN, PRECEDEX TURNED DOWN, IV FLUIDS SET TO BOLUS
[2019-09-18] VITALS (19 sets, daily range): BP systolic 94–116; BP diastolic 54–79
[2019-09-18 03:12] LABS: BASOPHILS % (AUTO) 0 % (0-10); EOSINOPHILS # (AUTO) 0.2 10^3/uL (0.0-0.3); EOSINOPHILS % (AUTO) 4 % (0-10); HEMATOCRIT 29 % (35-52); HEMOGLOBIN 9.3 G/DL (11.5-16.0); LYMPHOCYTES # (AUTO) 1.1 X 10^3 (1.0-4.0); LYMPHOCYTES % (AUTO) 23 % (12-44); MEAN CORPUSCULAR HEMOGLOBIN 29 PG (25-34); MEAN CORPUSCULAR HGB CONC 32 G/DL (32-36); MEAN CORPUSCULAR VOLUME 90 FL (80-99); MEAN PLATELET VOLUME 10.1 FL (7.4-10.4); MONOCYTES # (AUTO) 0.3 X 10^3 (0.0-1.0); MONOCYTES % (AUTO) 7 % (0-12); NEUTROPHILS # (AUTO) 3.2 X 10^3 (1.8-7.8); NEUTROPHILS % (AUTO) 66 % (42-75); PLATELET COUNT 192 10^3/uL (130-400); RED CELL DISTRIBUTION WIDTH 14.1 % (10.0-14.5); WHITE BLOOD COUNT 4.8 10^3/uL (4.3-11.0)
[2019-09-18 03:13] LABS: ABG BASE EXCESS -4.6 MMOL/L (-2.5-2.5); ABG OXYGEN SATURATION 97 % (94-100); ABG PCO2 38 MMHG (35-45); ABG PO2 82 MMHG (79-93); ABG TCO2 21.5 MMOL/L (21.0-31.0)
[2019-09-18 03:14] LABS: ABG PH 7.34 (7.37-7.43); ALLENS TEST POSITIVE; INSPIRED O2 50%; PATIENT TEMP 36.1; VENTILATOR NO
[2019-09-18 03:29] LABS: CREATININE SERUM 1.17 MG/DL (0.60-1.30); MAGNESIUM 1.8 MG/DL (1.6-2.4); PHOSPHORUS 4.9 MG/DL (2.3-4.7); POTASSIUM 5.2 MMOL/L (3.6-5.0)
[2019-09-18] MEDS: NS IV 1000 ML 1,000 ML IV SCH ×2 (03:55→11:52)
[2019-09-18] MEDS: inSUlin ASPART (NovoLOG) 1 UNIT/0.01 ML (CHARGE PER UNIT) SC SCH ×2 (05:07→12:35)
[2019-09-18] MEDS: ENOXAPARIN 40 MG/0.4 ML (LOVENOX) SYR SC SCH (05:16)
[2019-09-18] MEDS: CALCIUM ACETATE 667 MG CAP (PHOSLO) PO SCH ×2 (05:16→12:05)
[2019-09-18] MEDS ORDERED: KCL 20 MEQ TAB (K-DUR) PO SCH (06:00)
[2019-09-18] MEDS ORDERED: MAGNESIUM 1 GM/100 ML IVPB 100 ML IV SCH (06:00)
[2019-09-18] MEDS ORDERED: POTASSIUM CL 10MEQ/50ML IVPB 50 ML IV SCH (06:00)
--- NOTE | 2019-09-18 08:07 | Progress Note - Surgery ---
JEZ DIXON,MED STUDENT 09/18/19 0807: Subjective Date Seen by a Provider: Sep 18, 2019 Time Seen by a Provider: 08:00 Subjective/Events-last exam Patient is currently sedated and on a mechanical ventilator. Dr. Kwan placed a Groshong venous catheter on the left on 09/15 because the patient has poor venous access. There are no signs of erythema or infection around the incision for the port. Per nurse, patient has a history or seizures, but did not have a seizure last night. Objective Exam Vital Signs Date Time Temp Pulse Resp B/P (MAP) Pulse Ox O2 Delivery O2 Flow Rate FiO2 09/18/19 06:58 Mechanical Ventilator 40.00 09/18/19 06:49 54 16 97 50 09/18/19 06:00 53 15 99/61 (74) 97 Mechanical Ventilator 50.00 09/18/19 05:00 54 16 107/59 (75) 97 Mechanical Ventilator 50.00 09/18/19 04:00 53 16 101/57 (72) 98 Mechanical Ventilator 50.00 09/18/19 03:20 Mechanical Ventilator 50 09/18/19 03:00 54 16 116/74 (88) 98 Mechanical Ventilator 50.00 09/18/19 03:00 36.1 09/18/19 02:00 54 26 112/68 (83) 98 Mechanical Ventilator 50.00 09/18/19 01:20 55 16 98 100 09/18/19 01:00 54 09/18/19 01:00 54 16 116/66 (83) 98 Mechanical Ventilator 50.00 09/18/19 00:00 55 16 106/65 (79) 97 Mechanical Ventilator 50.00 09/17/19 23:30 Mechanical Ventilator 50 09/17/19 23:28 36.2 Mechanical Ventilator 50.00 09/17/19 23:00 55 15 104/62 (76) 98 Mechanical Ventilator 50.00 09/17/19 22:30 55 16 102/62 (75) 97 Mechanical Ventilator 50.00 09/17/19 22:00 55 15 95/57 (70) 96 Mechanical Ventilator 50.00 09/17/19 21:47 55 16 93/55 96 Mechanical Ventilator 50.00 09/17/19 21:45 55 15 93/55 (68) 96 Mechanical Ventilator 50.00 09/17/19 21:31 Mechanical Ventilator 50.00 09/17/19 21:30 09/17/19 21:05 54 15 80/46 (57) 98 Mechanical Ventilator 60.00 09/17/19 20:26 92 16 100 100 09/17/19 20:20 Mechanical Ventilator 60.00 09/17/19 20:09 92 16 100 100 09/17/19 20:00 58 16 91/52 (65) 100 Mechanical Ventilator 100.00 09/17/19 20:00 36.0 09/17/19 20:00 Mechanical Ventilator 100 09/17/19 19:40 36.0 Mechanical Ventilator 100.00 09/17/19 19:00 69 09/17/19 19:00 69 16 79/46 (57) 96 Mechanical Ventilator 100.00 09/17/19 18:15 170/89 09/17/19 18:14 170/89 09/17/19 18:00 90 16 177/107 (130) 96 Nasal Cannula 2.00 09/17/19 17:00 85 153/89 (110) 91 Nasal Cannula 2.00 09/17/19 16:00 76 16 141/88 (105) Nasal Cannula 2.00 09/17/19 16:00 Room Air 09/17/19 16:00 36.4 09/17/19 15:00 73 156/95 (115) Nasal Cannula 2.00 09/17/19 14:00 81 14 161/106 (124) Nasal Cannula 2.00 09/17/19 13:00 73 17 98 Nasal Cannula 2.00 09/17/19 12:28 72 09/17/19 12:00 67 26 124/80 (95) 97 Nasal Cannula 2.00 09/17/19 12:00 Room Air 09/17/19 11:00 72 33 117/69 (85) 94 Nasal Cannula 2.00 09/17/19 10:00 79 21 133/64 (87) 92 Nasal Cannula 2.00 09/17/19 09:00 81 16 128/66 (86) 97 Nasal Cannula 2.00 09/17/19 08:00 90 27 144/66 (92) 100 Nasal Cannula 2.00 I & O 09/18/19 07:00 Intake Total 3770 ml Output Total 2125 ml Balance 1645 ml Capillary Refill : Less Than 3 SecondsLess Than 3 Seconds General Appearance: No Apparent Distress, WD/WN, Chronically ill, Other (sedated) HEENT: PERRL/EOMI Neck: Supple Respiratory: Lungs Clear, Normal Breath Sounds, No Accessory Muscle Use, No Respiratory Distress, Other (Patient is on mechanical ventilator ) Cardiovascular: No Edema, No Murmur, Bradycardia, Other Extremity: No Pedal Edema Neurologic/Psychiatric: Other (patient is sedated ) Skin: Normal Color, Warm/Dry Lymphatic: No Adenopathy Results Lab Laboratory Tests 09/17/19 12:55: Glucometer 85 09/17/19 15:34: Glucometer 93 09/17/19 23:29: Glucometer 88 09/18/19 02:54: White Blood Count 4.8, Red Blood Count 3.21L, Hemoglobin 9.3L, Hematocrit 29L, Mean Corpuscular Volume 90, Mean Corpuscular Hemoglobin 29, Mean Corpuscular Hemoglobin Concent 32, Red Cell Distribution Width 14.1, Platelet Count 192, Mean Platelet Volume 10.1, Neutrophils (%) (Auto) 66, Lymphocytes (%) (Auto) 23, Monocytes (%) (Auto) 7, Eosinophils (%) (Auto) 4, Basophils (%) (Auto) 0, Neutrophils # (Auto) 3.2, Lymphocytes # (Auto) 1.1, Monocytes # (Auto) 0.3, Eosinophils # (Auto) 0.2, Basophils # (Auto) 0.0, Sodium Level 143, Potassium Level 5.2H, Chloride Level 115H, Carbon Dioxide Level 18L, Anion Gap 10, Blood Urea Nitrogen 36H, Creatinine 1.17, Estimat Glomerular Filtration Rate 48, BUN/Creatinine Ratio 31, Glucose Level 89, Calcium Level 8.0L, Phosphorus Level 4.9H, Magnesium Level 1.8 09/18/19 03:03: Blood Gas Puncture Site RIGHT RADIAL, Blood Gas Patient Temperature 36.1, Arterial Blood pH 7.34*L, Arterial Blood Partial Pressure CO2 38, Arterial Blood Partial Pressure O2 82, Arterial Blood HCO3 20L, Arterial Blood Total CO2 21.5, Arterial Blood Oxygen Saturation 97, Arterial Blood Base Excess -4.6L, Dominguez Test POSITIVE, Blood Gas Ventilator Setting NO, Blood Gas Inspired Oxygen 50% 09/18/19 06:36: Microbiology 09/14/19 MRSA Screen - Final, Complete MRSA not isolated Assessment/Plan Assessment/Plan Assessment/Plan Normocytic Anemia acute on chronic STEVE Hyperkalemia Metabolic acidosis Medical management per Dr. Balderrama and Dr. Novoa. Clinical Quality Measures DVT/VTE Risk/Contraindication: Risk Factor Score Per Nursin RFS Level Per Nursing on Admit: 1=Low/No VTE PPX DHEERAJ RAIN DO 09/18/19 1519: Subjective Time Seen by a Provider: 11:20 Subjective/Events-last exam Pt seen to look at Briana-cath site. Assessment/Plan Assessment/Plan Assessment/Plan Port site looks good, will sign off. Supervisory-Addendum Brief Verification & Attestation Participated in pt care: history, MDM, physical Personally performed: exam, history, MDM Care discussed with: Medical Student Procedures: n/a Verification and Attestation of Medical Student E/M Service A medical student performed and documented this service in my presence. I reviewed and verified all information documented by the medical student and made modifications to such information, when appropriate. I personally performed the physical exam and medical decision making. Dheeraj Rain, Sep 18, 2019,15:19 JEZ DIXON,MED STUDENT Sep 18, 2019 08:07 DHEERAJ ROTH DO Sep 18, 2019 15:19 POS
--- NOTE | 2019-09-18 08:10 | Cardiology Progress Note ---
Subjective Date Seen by Provider: Sep 18, 2019 Time Seen by Provider: 08:07 Subjective/Events-last exam Patient is sedated and intubated Review of Systems General: Other (Unable to provide review of system, sedated and intubated) Objective-Cardiology Exam Last Set of Vital Signs Vital Signs 09/18/19 09/18/19 09/18/19 09/18/19 03:00 06:00 06:49 06:58 Temp 36.1 Pulse 54 Resp 16 B/P (MAP) 99/61 (74) Pulse Ox 97 O2 Delivery Mechanical Ventilator O2 Flow Rate 40.00 FiO2 50 Capillary Refill : Less Than 3 SecondsLess Than 3 Seconds I&O Intake and Output 09/18/19 00:00 Intake Total 4080 ml Output Total 1950 ml Balance 2130 ml Intake Oral 1590 ml IV Total 2390 ml Other 100 ml Output Urine Total 1950 ml General: Other (Sedated and intubated) HEENT: Atraumatic, PERRLA Neck: Supple, No JVD, No Thyromegaly Lungs: Clear to Auscultation, Normal Air Movement Heart: Regular Rate, Normal S1, Normal S2, No Murmurs Abdomen: Normal Bowel Sounds, Soft, No Tenderness, No Hepatosplenomegaly, No Masses Extremities: No Clubbing, No Cyanosis, No Edema, Normal Pulses, No Tenderness/Swelling Skin: No Rashes, No Breakdown, No Significant Lesion Neuro: Other (Sedated and intubated) Psych/Mental Status: Other (Sedated and intubated) Results Lab Laboratory Tests 09/18/19 02:54 A/P-Cardiology Admission Diagnosis Acute respiratory failure Status epilepticus Coronary artery disease Acute renal failure Assessment/Plan Acute respiratory failure, ventilator dependent secondary to status epilepticus Status epilepticus persistent seizure yesterday, managed by primary care team, will need neurology evaluation. Acute on chronic renal insufficiency, renal function are better, continue with monitoring closely. Mild CAD, stable with no issues., Nuclear stress test done on 07/08/2019 which showed normal myocardial perfusion imaging during rest and stress. Nonischemic cardiomyopathy, not in acute congestive heart failure. Continue outpatient medical therapy., Echocardiogram done on 08/16/2019 shows normal LV function with an EF of 55-65 percent. Grade 2 diastolic dysfunction. Mildly dilated left atrium. Moderate mitral regurgitation. Moderate tricuspid reg urgitation. PA pressure of 45 mmHg. Moderate mitral regurgitation, no active issues. Moderate tricuspid regurgitation, clinically stable. Hypertension, currently borderline hypotensive, hold beta blockers and monitor Clinical Quality Measures DVT/VTE Risk/Contraindication: Risk Factor Score Per Nursin RFS Level Per Nursing on Admit: 1=Low/No VTE PPX ABELARDO AMANDA MD Sep 18, 2019 08:10 POS
[2019-09-18] MEDS: hydrALAZINE (APRESOLINE) 25 MG TAB PO SCH ×2 (08:33→13:27)
[2019-09-18] MEDS: cloNIDine 0.2 MG (CATAPRES) TAB PO SCH (08:33)
[2019-09-18] MEDS: meTOprolol SUCCINATE 100 MG (TOPROL XL) TAB PO SCH (08:34)
[2019-09-18] MEDS: amLODIPine 10 MG (NORVASC) TAB PO SCH (08:34)
--- NOTE | 2019-09-18 08:39 | Physical Therapy Progress Note ---
Therapy Progress Note Patient on hold for now. Patient is now intubated and nurse requests that PT hold for now because patient has a seizure with little provocation. VALENTINE WHITE PT Sep 18, 2019 08:39 POS
[2019-09-18] MEDS: PHENYTOIN 100 MG (DILANTIN) CAP PO SCH ×2 (08:43→12:07)
--- NOTE | 2019-09-18 08:44 | Diagnostic Imaging Report ---
EXAMINATION: Chest radiograph, portable AP view. DATE: 09/18/2019 3:58 AM hours. INDICATION: 58-year-old female, dyspnea. COMPARISON: September 17, 2019. FINDINGS: The endotracheal tube is approximately 1.9 cm above the viktoria. The nasogastric tube extends below the field of view. Left-sided central venous line and right internal jugular central venous line. Tips are both at the level of the mid to lower SVC. Unchanged overall appearance of the cardiomediastinal silhouette. There is no identified pneumothorax. There is redemonstrated and grossly unchanged nonspecific right basilar airspace consolidation. IMPRESSION: 1. Unchanged nonspecific right basilar airspace consolidation which may relate to infiltrate, effusion, and/or atelectasis. 2. Support lines and tubes as above. Dictated by: Dictated on workstation # [id number]
[2019-09-18] MEDS: DEXMEDETOMIDINE 1,000 MCG/NS 250 ML IV SCH ×2 (08:55)
[2019-09-18] MEDS: LEVETIRACETAM INJECTION 1,000 MG in NS (IVPB) 100 ML IV SCH (08:57)
[2019-09-18] MEDS ORDERED: PANTOPRAZOLE 40 MG (PROTONIX) VIAL IV SCH (09:00)
[2019-09-18] MEDS: SODIUM BICARBONATE 650 MG TABLET (NON-FORMULARY) PO SCH ×2 (09:03→12:07)
--- NOTE | 2019-09-18 12:11 | Progress Note - Hospitalist ---
Subjective HPI/CC On Admission Date Seen by Provider: Sep 18, 2019 Time Seen by Provider: 10:30 Chief complaint: Altered mental status post seizure History of present illness: This is a 58-year-old white female clinic patient of [facility] well-known to me from multiple hospital stays usually every o ther week due to some sort of complication following a major seizure. She was found to have acute renal failure and altered mental status in need of close monitoring. She did improve and we are contemplating moving down to fourth floor by Dr. Balderrama checked an ABG revealed pH is 7.2 and she was hyperkalemic so she was kept in the ICU and close monitoring and aggressive critical care medicine management was required. Currently patient recognizes me she is able to talk and she did eat supper. Subjective/Events-last exam Patient had another seizure We will reach out to [facility] to see if we can transfer her since she needs neuro ICU Loaded patient with Dilantin of 1000 mg also Keppra of 1000 mg twice daily maintain Objective Exam Vital Signs Vital Signs Date Time Temp Pulse Resp B/P (MAP) Pulse Ox O2 Delivery O2 Flow Rate FiO2 09/18/19 14:00 54 29 96/79 (85) 94 Mechanical Ventilator 30.00 09/18/19 13:42 30 09/18/19 12:00 35.9 Capillary Refill : Less Than 3 SecondsLess Than 3 Seconds General Appearance: No Apparent Distress, WD/WN, Chronically ill, Other Respiratory: Lungs Clear Cardiovascular: Regular Rate, Rhythm Neurologic/Psychiatric: Alert, Oriented x3, No Motor/Sensory Deficits, Normal Mood/Affect Results/Procedures Lab Patient resulted labs reviewed. Imaging: Reviewed Imaging Films, Reviewed Imaging Report Assessment/Plan Assessment and Plan Assess & Plan/Chief Complaint Status epilepticus Plan: Intubation Central line Ativan Diagnosis/Problems Diagnosis/Problems (1) Status epilepticus (2) Alteration consciousness Status: Acute Clinical Quality Measures DVT/VTE Risk/Contraindication: Risk Factor Score Per Nursin RFS Level Per Nursing on Admit: 1=Low/No VTE PPX RAJAN VALDOVINOS DO Sep 18, 2019 12:11 POS
--- NOTE | 2019-09-18 12:41 | Pulmonary Progress Note ---
Subjective Date Seen by a Provider: Sep 18, 2019 Time Seen by a Provider: 05:00 Subjective/Events-last exam No complications noted. Sepsis Event Evaluation Height, Weight, BMI Height: 5'3.00" Weight: 155lbs. 8.0oz. [id number]; 29.00 BMI Method:Stated Exam Exam Vital Signs Date Time Temp Pulse Resp B/P (MAP) Pulse Ox O2 Delivery O2 Flow Rate FiO2 09/18/19 12:00 52 15 100/59 (73) 94 Mechanical Ventilator 30.00 09/18/19 11:48 Mechanical Ventilator 30.00 09/18/19 11:45 52 16 97 40 09/18/19 11:00 52 16 108/60 (76) 96 Mechanical Ventilator 40.00 09/18/19 10:00 52 19 100/54 (69) 96 Mechanical Ventilator 40.00 09/18/19 09:00 53 27 109/56 (73) 97 Mechanical Ventilator 40.00 09/18/19 08:55 100/54 09/18/19 08:00 36.5 09/18/19 08:00 Mechanical Ventilator 40 09/18/19 08:00 54 16 99/60 (73) 95 Mechanical Ventilator 40.00 09/18/19 07:00 55 09/18/19 07:00 53 16 99/57 (71) 96 Mechanical Ventilator 40.00 09/18/19 06:58 Mechanical Ventilator 40.00 09/18/19 06:49 54 16 97 50 09/18/19 06:00 53 15 99/61 (74) 97 Mechanical Ventilator 50.00 09/18/19 05:00 54 16 107/59 (75) 97 Mechanical Ventilator 50.00 09/18/19 04:00 53 16 101/57 (72) 98 Mechanical Ventilator 50.00 09/18/19 03:20 Mechanical Ventilator 50 09/18/19 03:00 54 16 116/74 (88) 98 Mechanical Ventilator 50.00 09/18/19 03:00 36.1 09/18/19 02:00 54 26 112/68 (83) 98 Mechanical Ventilator 50.00 09/18/19 01:20 55 16 98 100 09/18/19 01:00 54 09/18/19 01:00 54 16 116/66 (83) 98 Mechanical Ventilator 50.00 09/18/19 00:00 55 16 106/65 (79) 97 Mechanical Ventilator 50.00 09/17/19 23:30 Mechanical Ventilator 50 09/17/19 23:28 36.2 Mechanical Ventilator 50.00 09/17/19 23:00 55 15 104/62 (76) 98 Mechanical Ventilator 50.00 09/17/19 22:30 55 16 102/62 (75) 97 Mechanical Ventilator 50.00 09/17/19 22:00 55 15 95/57 (70) 96 Mechanical Ventilator 50.00 09/17/19 21:47 55 16 93/55 96 Mechanical Ventilator 50.00 09/17/19 21:45 55 15 93/55 (68) 96 Mechanical Ventilator 50.00 09/17/19 21:31 Mechanical Ventilator 50.00 09/17/19 21:30 09/17/19 21:05 54 15 80/46 (57) 98 Mechanical Ventilator 60.00 09/17/19 20:26 92 16 100 100 09/17/19 20:20 Mechanical Ventilator 60.00 09/17/19 20:09 92 16 100 100 09/17/19 20:00 58 16 91/52 (65) 100 Mechanical Ventilator 100.00 09/17/19 20:00 36.0 09/17/19 20:00 Mechanical Ventilator 100 09/17/19 19:40 36.0 Mechanical Ventilator 100.00 09/17/19 19:00 69 09/17/19 19:00 69 16 79/46 (57) 96 Mechanical Ventilator 100.00 09/17/19 18:15 170/89 09/17/19 18:14 170/89 09/17/19 18:00 90 16 177/107 (130) 96 Nasal Cannula 2.00 09/17/19 17:00 85 153/89 (110) 91 Nasal Cannula 2.00 09/17/19 16:00 76 16 141/88 (105) Nasal Cannula 2.00 09/17/19 16:00 Room Air 09/17/19 16:00 36.4 09/17/19 15:00 73 156/95 (115) Nasal Cannula 2.00 09/17/19 14:00 81 14 161/106 (124) Nasal Cannula 2.00 09/17/19 13:00 73 17 98 Nasal Cannula 2.00 I & O 09/18/19 07:00 Intake Total 3770 ml Output Total 2125 ml Balance 1645 ml Height & Weight Height: 5'3.00" Weight: 155lbs. 8.0oz. [id number]; 29.00 BMI Method:Stated General Appearance: No Apparent Distress, Chronically ill HEENT: PERRL/EOMI Neck: Supple Respiratory: Lungs Clear, Normal Breath Sounds Cardiovascular: Regular Rate, Rhythm Capillary Refill: Less Than 3 Seconds Extremity: No Pedal Edema Neurologic/Psychiatric: Other (patient is sedated ) Skin: Normal Color, Warm/Dry Lymphatic: No Adenopathy Results Lab Laboratory Tests 09/17/19 03:01 09/18/19 02:54 Assessment/Plan Assessment/Plan Mental status changes s/p seizure witnessed -Will wait until pt is siezure free x 24hrs prior to transferring to 4th floor. -Keppra 1gm Q 12 -Phenantoin -Check MRI secondary to persistent seizures ARF -IVF and monitor Hyperphos -phos lo Metabolic/respiratory acidosis ARF CAD HX of drug use COPD hx -Currently on RA Alcohol dependance RICARDA COVINGTON DO Sep 18, 2019 12:41 POS
[2019-09-18] MEDS ORDERED: D5 LR IV SOLUTION 1,000 ML IV SCH (12:45)
[2019-09-18] MEDS ORDERED: MIDAZOLAM INJECTION FOR DRIPS 50 MG in NS (IVPB) 90 ML IV SCH (12:45)
[2019-09-18] MEDS ORDERED: SODIUM BICARB 8.4% 50 MEQ/50 ML VIAL IV NR (12:45)
[2019-09-18] MEDS ORDERED: SOD POLYSTERENE 15 GM/60 ML (KAYEXALATE) UNIT DOSE PO NR (12:45)
[2019-09-18] MEDS ORDERED: PHENYTOIN 100 MG (DILANTIN) CAP PO SCH (13:00)
[2019-09-18] MEDS ORDERED: OXcarbazepine (TRILEPTAL) 300 MG TAB PO SCH (13:00)
--- NOTE | 2019-09-18 13:32 | Pulmonary Progress Note ---
Subjective Date Seen by a Provider: Sep 18, 2019 Time Seen by a Provider: 13:35 Subjective/Events-last exam Pt was intubated secondary to persistent seizure last night. Dr. Patel attempted to transfer pt to both and [place] without success. Pt had another seizure this AM while sedated on vent. Sepsis Event Evaluation Height, Weight, BMI Height: 5'3.00" Weight: 155lbs. 8.0oz. 70.396959sc; 29.00 BMI Method:Stated Exam Exam Vital Signs Date Time Temp Pulse Resp B/P (MAP) Pulse Ox O2 Delivery O2 Flow Rate FiO2 09/18/19 13:00 51 15 105/66 (79) 95 Mechanical Ventilator 30.00 09/18/19 12:00 52 15 100/59 (73) 94 Mechanical Ventilator 30.00 09/18/19 12:00 35.9 09/18/19 11:48 Mechanical Ventilator 30.00 09/18/19 11:45 52 16 97 40 09/18/19 11:00 52 16 108/60 (76) 96 Mechanical Ventilator 40.00 09/18/19 10:00 52 19 100/54 (69) 96 Mechanical Ventilator 40.00 09/18/19 09:00 53 27 109/56 (73) 97 Mechanical Ventilator 40.00 09/18/19 08:55 100/54 09/18/19 08:00 36.5 09/18/19 08:00 Mechanical Ventilator 40 09/18/19 08:00 54 16 99/60 (73) 95 Mechanical Ventilator 40.00 09/18/19 07:00 55 09/18/19 07:00 53 16 99/57 (71) 96 Mechanical Ventilator 40.00 09/18/19 06:58 Mechanical Ventilator 40.00 09/18/19 06:49 54 16 97 50 09/18/19 06:00 53 15 99/61 (74) 97 Mechanical Ventilator 50.00 09/18/19 05:00 54 16 107/59 (75) 97 Mechanical Ventilator 50.00 09/18/19 04:00 53 16 101/57 (72) 98 Mechanical Ventilator 50.00 09/18/19 03:20 Mechanical Ventilator 50 09/18/19 03:00 54 16 116/74 (88) 98 Mechanical Ventilator 50.00 09/18/19 03:00 36.1 09/18/19 02:00 54 26 112/68 (83) 98 Mechanical Ventilator 50.00 09/18/19 01:20 55 16 98 100 09/18/19 01:00 54 09/18/19 01:00 54 16 116/66 (83) 98 Mechanical Ventilator 50.00 09/18/19 00:00 55 16 106/65 (79) 97 Mechanical Ventilator 50.00 09/17/19 23:30 Mechanical Ventilator 50 09/17/19 23:28 36.2 Mechanical Ventilator 50.00 09/17/19 23:00 55 15 104/62 (76) 98 Mechanical Ventilator 50.00 09/17/19 22:30 55 16 102/62 (75) 97 Mechanical Ventilator 50.00 09/17/19 22:00 55 15 95/57 (70) 96 Mechanical Ventilator 50.00 09/17/19 21:47 55 16 93/55 96 Mechanical Ventilator 50.00 09/17/19 21:45 55 15 93/55 (68) 96 Mechanical Ventilator 50.00 09/17/19 21:31 Mechanical Ventilator 50.00 09/17/19 21:30 09/17/19 21:05 54 15 80/46 (57) 98 Mechanical Ventilator 60.00 09/17/19 20:26 92 16 100 100 09/17/19 20:20 Mechanical Ventilator 60.00 09/17/19 20:09 92 16 100 100 09/17/19 20:00 58 16 91/52 (65) 100 Mechanical Ventilator 100.00 09/17/19 20:00 36.0 09/17/19 20:00 Mechanical Ventilator 100 09/17/19 19:40 36.0 Mechanical Ventilator 100.00 09/17/19 19:00 69 09/17/19 19:00 69 16 79/46 (57) 96 Mechanical Ventilator 100.00 09/17/19 18:15 170/89 09/17/19 18:14 170/89 09/17/19 18:00 90 16 177/107 (130) 96 Nasal Cannula 2.00 09/17/19 17:00 85 153/89 (110) 91 Nasal Cannula 2.00 09/17/19 16:00 76 16 141/88 (105) Nasal Cannula 2.00 09/17/19 16:00 Room Air 09/17/19 16:00 36.4 09/17/19 15:00 73 156/95 (115) Nasal Cannula 2.00 09/17/19 14:00 81 14 161/106 (124) Nasal Cannula 2.00 I & O 09/18/19 07:00 Intake Total 3770 ml Output Total 2125 ml Balance 1645 ml Height & Weight Height: 5'3.00" Weight: 155lbs. 8.0oz. 70.261601mx; 29.00 BMI Method:Stated General Appearance: Chronically ill, Other (sedated on vent) HEENT: PERRL/EOMI Neck: Supple Respiratory: Lungs Clear, Normal Breath Sounds, Decreased Breath Sounds Cardiovascular: Bradycardia Capillary Refill: Less Than 3 Seconds Extremity: Normal Capillary Refill, No Pedal Edema Neurologic/Psychiatric: Other (patient is sedated ) Skin: Normal Color, Warm/Dry Lymphatic: No Adenopathy Results Lab Laboratory Tests 09/17/19 03:01 09/18/19 02:54 Assessment/Plan Assessment/Plan Mental status changes s/p seizure witnessed - hx of methamphetamine and alcohol use -Pt was intubated secondary to persistent seizure last night. Dr. Patel attempted to transfer pt to both [facility] without success. Pt had another seizure this AM while sedated on vent. I am going to try to transfer to [facility] in [place] secondary to status epilepticus. -Called [facility] for bed they are going to call back -[facility] called back and I spoke with neurologist who is accepting pt. -[facility] called back and I spoke with ICU doctor who also agrees with transfer. Now just waiting for bed. -I called and updated Dr. Patel on transfer and pt's status. -Keppra 1gm Q 12 -Phenantoin -MRI is neg. CT head is neg ARF - improving -IVF and monitor Hyperkalemia -Give 2 amps of bicarb -Kayexalate per OG -Monitor Nonanion gapped metabolic acidosis -Change NS to LR and monitor -Lactic acid is negative -Urine Ketones negative Hyperphos -phos lo -Monitor CAD HX of drug use COPD hx Alcohol dependance Critical Care: Critically Ill Patient Time spent with patient (mins): 60 RICARDA COVINGTON DO Sep 18, 2019 13:32 POS
--- NOTE | 2019-09-18 15:28 | NUR ---
pt transferred to [facility] room 12 via [facility] [employer] [facility] at 1445. Report given to Olivia SALDIVAR at 1450.
--- NOTE | 2019-09-22 11:45 | Procedure/Intervention Note ---
Procedures/Interventions Lumen: triple Central Line Procedure: betadine prep, sterile dressing applied Position: internal jugular (R) Anesthesia: Lidocaine Volume Anesthetic (ccs): 5 Complications: none Post Position: sutured, good blood return, position confirmed w/ CXR Date of ETT Placement: Sep 17, 2019 Time of ETT Placement: 1745 Tube Size: 8.00 Medications: Etomidate, Propofol, Rocuronium Positive End Tide CO2: Yes Breath Sounds after Intubation: bilateral-equal Post Intubation Xray: Yes Arrives after being called by powerhouse tender to ICU to intubate the patient d ue to for seizures in the past hour despite current treatment regimen. Arrived, she gave verbal consent and was alert at time of my arrival. Gave 20 mg of etomidate, 100 mg of rocuronium, RT attempted intubation with direct laryngoscopy size 8 endotracheal tube unsuccessfully, we then gave 40 mg of propofol and I was able to successfully intubate with video laryngoscopy size 8 endotracheal tube. Positive color change on CO2 detector, rub sounds equal bilateral. He is a gastric tube then inserted. Due to the need for additional IV access a right internal jugular central line was placed using ultrasound guidance without complications NEERAJ VILLA APRN Sep 22, 2019 11:45 POS
--- OUTSIDE RECORDS SUMMARY | 2019-10-09 12:15 | XMS REPORT | Clinical Summary ---
Author Author [facility] Organization [facility] Address Unknown Phone Unavailable Care Team Providers Care Medical Facilities Section Director Name Role Phone Paulo Sander LANGE Unavailable Anita Lopez MD Unavailable Joshua Lynch MD Unavailable Sherice Laurent DO PCP Armin Ventura MD Unavailable Flory Kim RN Unavailable Unavailable Zaynab Zhang MD Unavailable Unavailable Source Comments Some departments are not documenting in the electronic medical record. If you d o not see the information that you expected, contact Release of Information in [facility] [employer] Information Management department at [phone] for further assistan ce in locating additional records.[facility] Allergies Comments Active Allergy Reactions Severity [...] Take 1 Tab by 30 Tab 1 1 (65 mg iron) tablet mouth at [...] Take 1 Cap by 270 Cap 3 1 300 mg capsule mouth three 4 times daily. Active bisacodyl (DULCOLAX) 10 Insert or 15 0 mg rectal suppository Apply 1 Suppository 4 Suppository to rectal area as directed daily as needed. Active cyclobenzaprine Take 1 Tab by 60 Tab 1 09/21/20 1 (FLEXERIL) 10 mg tablet mouth twice 4 daily (at 10AM and 10PM). 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 Immunizations Name Administration Dates Next Due Flu Vaccine Trivalent =>3 07/12/2014 Yo (Preservative Free) Family History Medical [...] Comments Vital Sign 110/80 11/11/2014 1:07 PM [employer]ANGLE [employer] C[employer]ER Blood Pressure 72 11/11/2014 1:07 PM MANGLE PR[employer] C[employer]ER Pulse 36.5 C (97.7 F) 11/11/2014 1:07 PM [employer]ANGLE [employer] C[employer]ER Temperature 16 11/11/2014 1:07 PM MANGLE PR[employer] C[employer]ER Respiratory Rate 94% 09/21/2014 7:45 AM MANGLE [employer] C[employer]ER Oxygen Saturation - - Inhaled Oxygen Concentration 82.1 kg (181 lb) 11/11/2014 1:07 PM MANGLE [employer]ER Weight 160 cm (5' 3") 11/11/2014 1:07 PM MANGLE [employer] C[employer] Height 32.06 11/11/2014 1:07 PM MANGLE [employer] C[employer]ER Body Mass Index Plan of Treatment Health Maintenance Due Date Last Done Comments DTAP/TDAP VACCINES (1 - 1971 Tdap) PHYSICAL (COMPREHENSIVE) 1978 EXAM CERVICAL CANCER SCREENING 1990 BREAST CANCER SCREENING 2000 COLORECTAL CANCER 2010 SCREENING SHINGLES RECOMBINANT 2010 VACCINE (1 of 2) INFLUENZA VACCINE 05/13/2019 07/12/2014 HEPATITIS C SCREENING Completed 06/11/2014, 05/15, 06/10/2014 HIV SCREENING Completed 06/11/2014 Results Not on filefrom Last 3 Months Additional Health Concerns Resolved Time Infection Noted Time MRSA 06/14/2014 9:09 AM CDT Advance Directives Patient Assistant Property Manager Explanation Type Date Recorded Advance 06/11/2014 9:42 AM Directive/DPOA Date Inactivated Comments Code Status Date Activated 09/21/2014 11:39 AM Full Code 09/17/2014 5:59 PM Provider has discussed Code Status Yes w/Patient or Family? 09/17/2014 5:59 PM Full Code 09/11/2014 10:24 PM Provider has discussed Code Status No, more discussi on w/Patient or Family? needed 06/22/2014 6:12 PM Full Code 06/10/2014 4:57 PM Provider has discussed Code Status Yes w/Patient or Family?
--- OUTSIDE RECORDS SUMMARY | 2019-10-09 12:23 | XMS REPORT | Continuity of Care Document ---
Demographics Preferred Language Unknown Marital Status Unknown Muslim Affiliation Unknown Race Unknown Ethnic Group Unknown Author Organization Unknown Address Unknown Phone Unavailable Allergies Active Description Code Type Severity Reaction Onset Reported/Identified Relationship to Patient Clinical Status Yes nitrous oxide [id number] Newton g Allergy Unknown N/A 06/08/2007 [address] AILEEN Inhib[address] [id number] Dr ug Allergy Unknown N/A 05/25/2014 Medications There is no data. Problems Date Dx Coded Attending Type Code Diagnosis Diagnosed By 08/08/2008 KRANTHI PRECIADO MD 599.0 Urinary Tract Infection 08/08/2008 599.0 Urin jonas Tract Infection 08/08/2008 599.0 Urin jonas Tract Infection 08/08/2008 TRACEE LANGE APRN 59 9.0 Urinary Tract Infection 08/08/2008 TRACEE LANGE APRN 59 9.0 Urinary Tract Infection 08/08/2008 599.0 Urin jonas Tract Infection 08/08/2008 599.0 Urin jonas Tract Infection 08/08/2008 KRANTHI PRECIADO MD 599.0 Urinary Tract Infection 08/08/2008 KRANTHI PRECIADO MD 599.0 Urinary Tract Infection 08/08/2008 TRACEE LANGE APRN 59 9.0 Urinary Tract Infection 08/08/2008 TRACEE LANGE APRN 59 9.0 Urinary Tract Infection 08/08/2008 TRACEE LANGE APRN 59 9.0 Urinary Tract Infection 08/08/2008 DEGROOT DO, GAVI K 599.0 Urinary Tract Infection 08/08/2008 DEGROOT DO, GAVI K 599.0 Urinary Tract Infection 08/08/2008 TRACEE LANGE APRN 59 9.0 Urinary Tract Infection 08/08/2008 TRACEE LANGE APRN 59 9.0 Urinary Tract Infection 08/08/2008 KRANTHI PRECIADO MD 599.0 Urinary Tract Infection 01/25/2009 KRANTHI PRECIADO MD 682.9 Cellulitis And Abscess Of Unspecified Sites 01/25/2009 682.9 Cell ulitis And Abscess Of Unspecified Sites 01/25/2009 682.9 Cell ulitis And Abscess Of Unspecified Sites 01/25/2009 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, 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 68 2.9 Cellulitis And Abscess Of Unspecified Sites 01/25/2009 TRACEE LANGE APRN T 68 2.9 Cellulitis And Abscess Of Unspecified Sites 01/25/2009 682.9 Cell ulitis And Abscess Of Unspecified Sites 01/25/2009 682.9 Cell ulitis And Abscess Of Unspecified Sites 01/25/2009 KRANTHI PRECIADO MD 682.9 Cellulitis And Abscess Of Unspecified Sites 01/25/2009 KRANTHI PRECIADO MD 682.9 Cellulitis And Abscess Of Unspecified Sites 01/25/2009 TRACEE LANGE APRN T 68 2.9 Cellulitis And Abscess Of Unspecified Sites 01/25/2009 TRACEE LANGE APRN T 68 2.9 Cellulitis And Abscess Of Unspecified Sites 01/25/2009 TRACEE LANGE APRN T 68 2.9 Cellulitis And Abscess Of Unspecified Sites 01/25/2009 DEGROOT DO, GAVI K 682.9 Cellulitis And Abscess Of Unspecified Sites 01/25/2009 DEGROOT DO, GAVI K 682.9 Cellulitis And Abscess Of Unspecified Sites 01/25/2009 TRACEE LANGE APRN T 68 2.9 Cellulitis And Abscess Of Unspecified Sites 01/25/2009 TRACEE LANGE APRN T 68 2.9 Cellulitis And Abscess Of Unspecified Sites 01/25/2009 KRANTHI PRECIADO MD 682.9 Cellulitis And Abscess Of Unspecified Sites 02/21/2009 KRANTHI PRECIADO MD 466.0 Bronchitis, Acute 02/21/2009 466.0 Bron chitis, Acute 02/21/2009 466.0 Bron chitis, Acute 02/21/2009 TRACEE LANGE APRN 46 6.0 Bronchitis, Acute 02/21/2009 TRACEE LANGE APRN 46 6.0 Bronchitis, Acute 02/21/2009 466.0 Bron chitis, Acute 02/21/2009 466.0 Bron chitis, Acute 02/21/2009 KRANTHI PRECIADO MD 466.0 Bronchitis, Acute 02/21/2009 KRANTHI PRECIADO MD 466.0 Bronchitis, Acute 02/21/2009 TRACEE LANGE APRN 46 6.0 Bronchitis, Acute 02/21/2009 TRACEE LANGE APRN 46 6.0 Bronchitis, Acute 02/21/2009 TRACEE LANGE APRN 46 6.0 Bronchitis, Acute 02/21/2009 DEGROOT DO, GAVI K 466.0 Bronchitis, Acute 02/21/2009 DEGROOT DO, GAVI K 466.0 Bronchitis, Acute 02/21/2009 TRACEE LANGE APRN 46 6.0 Bronchitis, Acute 02/21/2009 TRACEE LANGE APRN 46 6.0 Bronchitis, Acute 02/21/2009 KRANTHI PRECIADO MD 466.0 Bronchitis, Acute 03/23/2009 KRANTHI PRECIADO MD 536.8 DYSPEPSIA 03/23/2009 KRANTHI PRECIADO MD 787.0 2 Nausea 03/23/2009 KRANTHI PRECIADO MD 789.0 1 Abdominal Pain In The Right Upper Belly (ruq) 03/23/2009 536.8 DYSP EPSIA 03/23/2009 787.02 Nausea 03/23/2009 789.01 Abd ominal Pain In The Right Upper Belly (ruq) 03/23/2009 536.8 DYSP EPSIA 03/23/2009 787.02 Nausea 03/23/2009 789.01 Abd ominal Pain In The Right Upper Belly (ruq) 03/23/2009 TRACEE LANGE APRN 53 6.8 DYSPEPSIA 03/23/2009 TRACEE LANGE APRN 787.02 Nausea 03/23/2009 TRACEE LANGE APRN 789.01 Abdominal Pain In The Right Upper Belly (ruq) 03/23/2009 TRACEE LANGE APRN 53 6.8 DYSPEPSIA 03/23/2009 TRACEE LANGE APRN 787.02 Nausea 03/23/2009 TRACEE LANGE APRN 789.01 Abdominal Pain In The Right Upper Belly (ruq) 03/23/2009 536.8 DYSP EPSIA 03/23/2009 787.02 Nausea 03/23/2009 789.01 Abd ominal Pain In The Right Upper Belly (ruq) 03/23/2009 536.8 DYSP EPSIA 03/23/2009 787.02 Nausea 03/23/2009 789.01 Abd ominal Pain In The Right Upper Belly (ruq) 03/23/2009 KRANTHI PRECIADO MD 536.8 DYSPEPSIA 03/23/2009 KRANTHI PRECIADO MD 787.0 2 Nausea 03/23/2009 KRANTHI PRECIADO MD 789.0 1 Abdominal Pain In The Right Upper Belly (ruq) 03/23/2009 KRANTHI PRECIADO MD 536.8 DYSPEPSIA 03/23/2009 KRANTHI PRECIADO MD 787.0 2 Nausea 03/23/2009 KRANTHI PRECIADO MD 789.0 1 Abdominal Pain In The Right Upper Belly (ruq) 03/23/2009 TRACEE LANGE APRN T 53 6.8 DYSPEPSIA 03/23/2009 TRACEE LANGE APRN 787.02 Nausea 03/23/2009 TRACEE LANGE APRN T 789.01 Abdominal Pain In The Right Upper Belly (ruq) 03/23/2009 TRACEE LANGE APRN T 53 6.8 DYSPEPSIA 03/23/2009 TRACEE LANGE APRN 787.02 Nausea 03/23/2009 TRACEE LANGE APRN T 789.01 Abdominal Pain In The Right Upper Belly (ruq) 03/23/2009 TRACEE LANGE APRN 53 6.8 DYSPEPSIA 03/23/2009 TRACEE LANGE APRN 787.02 Nausea 03/23/2009 TRACEE LANGE APRN T 789.01 Abdominal Pain In The Right Upper [...] Upper Belly (ruq) 03/23/2009 TRACEE LANGE APRN 53 6.8 DYSPEPSIA 03/23/2009 TRACEE LANGE APRN T 787.02 Nausea 03/23/2009 TRACEE LANGE APRN T 789.01 Abdominal Pain In The Right Upper Belly (ruq) 03/23/2009 TRACEE LANGE APRN 53 6.8 DYSPEPSIA 03/23/2009 TRACEE LANGE APRN 787.02 Nausea 03/23/2009 TRACEE LANGE APRN 789.01 Abdominal Pain In The Right Upper Belly (ruq) 03/23/2009 KRANTHI PRECIADO MD 536.8 DYSPEPSIA 03/23/2009 KRANTHI PRECIADO MD 787.0 2 Nausea 03/23/2009 KRANTHI PRECIADO MD 789.0 1 Abdominal Pain In The Right Upper Belly (ruq) 04/26/2009 KRANTHI PRECIADO MD 786.5 0 Chest Pain 04/26/[address] Pain 04/26/[address] Pain 04/26/2009 TRACEE LANGE APRN T 786.50 Chest Pain 04/26/2009 TRACEE LANGE APRN T 786.50 Chest Pain 04/26/[address] Pain 04/26/[address] Pain 04/26/2009 KRANTHI PRECIADO MD 786.5 0 Chest Pain 04/26/2009 KRANTHI PRECIADO MD 786.5 0 Chest Pain 04/26/2009 TRACEE LANGE APRN T 786.50 Chest Pain 04/26/2009 TRACEE LANGE APRN T 786.50 Chest Pain 04/26/2009 TRACEE LANGE APRN T 786.50 Chest Pain 04/26/2009 DEGROOT DO, GAVI K 786.50 Chest Pain 04/26/2009 DEGROOT DO, GAVI K 786.50 Chest Pain 04/26/2009 TRACEE LANGE APRN T 786.50 Chest Pain 04/26/2009 TRACEE LANGE APRN T 786.50 Chest Pain 04/26/2009 KRANTHI PRECIADO MD 786.5 0 Chest Pain 10/04/2009 KRANTHI PRECIADO MD 840.9 SPRAIN/STRAIN SHOULDER/ARM 10/04/2009 840.9 SPRA IN/STRAIN SHOULDER/ARM 10/04/2009 840.9 SPRA IN/STRAIN SHOULDER/ARM 10/04/2009 TRACEE LANGE APRN 84 0.9 SPRAIN/STRAIN SHOULDER/ARM 10/04/2009 TRACEE LANGE APRN 84 0.9 SPRAIN/STRAIN SHOULDER/ARM 10/04/2009 840.9 SPRA IN/STRAIN SHOULDER/ARM 10/04/2009 840.9 SPRA IN/STRAIN SHOULDER/ARM 10/04/2009 KRANTHI PRECIADO MD 840.9 SPRAIN/STRAIN SHOULDER/ARM 10/04/2009 KRANTHI PRECIADO MD 840.9 SPRAIN/STRAIN SHOULDER/ARM 10/04/2009 TRACEE LANGE APRN 84 0.9 SPRAIN/STRAIN SHOULDER/ARM 10/04/2009 TRACEE LANGE APRN T 84 0.9 SPRAIN/STRAIN SHOULDER/ARM 10/04/2009 TRACEE LANGE APRN T 84 0.9 SPRAIN/STRAIN SHOULDER/ARM 10/04/2009 DEGROOT DO, GAVI K 840.9 SPRAIN/STRAIN SHOULDER/ARM 10/04/2009 DEGROOT DO, GAVI K 840.9 SPRAIN/STRAIN SHOULDER/ARM 10/04/2009 TRACEE LANGE APRN 84 0.9 SPRAIN/STRAIN SHOULDER/ARM 10/04/2009 TRACEE LANGE APRN 84 0.9 SPRAIN/STRAIN SHOULDER/ARM 10/04/2009 KRANTHI PRECIADO MD 840.9 SPRAIN/STRAIN SHOULDER/ARM 02/14/2010 KRANTHI PRECIADO MD 789.0 0 Abdominal Pain Unspecified Site 02/14/2010 789.00 Abd ominal Pain Unspecified Site 02/14/2010 789.00 Abd ominal Pain Unspecified Site 02/14/2010 TRACEE LANGE APRN 789.00 Abdominal Pain Unspecified Site 02/14/2010 TRACEE LANGE APRN 789.00 Abdominal Pain Unspecified Site 02/14/2010 789.00 Abd ominal Pain Unspecified Site 02/14/2010 789.00 Abd ominal Pain Unspecified Site 02/14/2010 KRANTHI PRECIADO MD 789.0 0 Abdominal Pain Unspecified Site 02/14/2010 KRANTHI PRECIADO MD 789.0 0 Abdominal Pain Unspecified Site 02/14/2010 TRACEE LANGE [...] Pain Unspecified Site 02/14/2010 KRANTHI PRECIADO MD 789.0 0 Abdominal Pain Unspecified Site 03/09/2010 KRANTHI PRECIADO MD 71César.4 6 PAIN IN JOINT INVOLVING LOWER LEG 03/09/2010 KRANTHI PRECIADO MD 844.9 SPRAIN/STRAIN KNEE/LEG 03/09/2010 719.46 JOSSELYN N IN JOINT INVOLVING LOWER LEG 03/09/2010 844.9 SPRA IN/STRAIN KNEE/LEG 03/09/2010 719.46 JOSSELYN N IN JOINT INVOLVING LOWER LEG 03/09/2010 844.9 SPRA IN/STRAIN KNEE/LEG 03/09/2010 TRACEE LANGE APRN 719.46 PAIN IN JOINT INVOLVING LOWER LEG 03/09/2010 TRACEE LANGE APRN 84 4.9 SPRAIN/STRAIN KNEE/LEG 03/09/2010 TRACEE LANGE APRN 719.46 PAIN IN JOINT INVOLVING LOWER LEG 03/09/2010 TRACEE LANGE APRN 84 4.9 SPRAIN/STRAIN KNEE/LEG 03/09/2010 719.46 JOSSELYN N IN JOINT INVOLVING LOWER LEG 03/09/2010 844.9 SPRA IN/STRAIN KNEE/LEG 03/09/2010 719.46 JOSSELYN N IN JOINT INVOLVING LOWER LEG 03/09/2010 844.9 SPRA IN/STRAIN KNEE/LEG 03/09/2010 KRANTHI PRECIADO MD 719.4 6 PAIN IN JOINT INVOLVING LOWER LEG 03/09/2010 KRANTHI PRECIADO MD 844.9 SPRAIN/STRAIN KNEE/LEG 03/09/2010 KRANTHI PRECIADO MD 719.4 6 PAIN IN JOINT INVOLVING LOWER LEG 03/09/2010 KRANTHI PRECIADO MD 844.9 SPRAIN/STRAIN KNEE/LEG 03/09/2010 TRACEE LANGE APRN 719.46 PAIN IN JOINT INVOLVING LOWER LEG 03/09/2010 TRACEE LANGE APRN 84 4.9 SPRAIN/STRAIN KNEE/LEG 03/09/2010 TRACEE LANGE APRN 719.46 PAIN IN JOINT INVOLVING LOWER LEG 03/09/2010 TRACEE LANGE APRN 84 4.9 SPRAIN/STRAIN KNEE/LEG 03/09/2010 TRACEE LANGE APRN 719.46 PAIN IN JOINT INVOLVING LOWER LEG 03/09/2010 TRACEE LANGE APRN 84 4.9 SPRAIN/STRAIN KNEE/LEG 03/09/2010 GAVI DEGROOT DO 719.46 PAIN IN JOINT INVOLVING LOWER LEG 03/09/2010 DEGROOT DO, GAVI K 844.9 SPRAIN/STRAIN KNEE/LEG 03/09/2010 DEGROOT DO, GAVI K 719.46 PAIN IN JOINT INVOLVING LOWER LEG 03/09/2010 DEGROOT DO, GAVI K 844.9 SPRAIN/STRAIN KNEE/LEG 03/09/2010 TRACEE LANGE APRN 719.46 PAIN IN JOINT INVOLVING LOWER LEG 03/09/2010 TRACEE LANGE APRN 84 4.9 SPRAIN/STRAIN KNEE/LEG 03/09/2010 TRACEE LANGE APRN 719.46 PAIN IN JOINT INVOLVING LOWER LEG 03/09/2010 TRACEE LANGE APRN 84 4.9 SPRAIN/STRAIN KNEE/LEG 03/09/2010 KRANTHI PRECIADO MD 719.4 6 PAIN IN JOINT INVOLVING LOWER LEG 03/09/2010 KRANTHI PRECIADO MD 844.9 SPRAIN/STRAIN KNEE/LEG 04/25/2010 KRANTHI PRECIADO MD 786.5 2 Painful Respiration 04/25/2010 786.52 Josselyn nful Respiration 04/25/2010 786.52 Josselyn nful Respiration 04/25/2010 TRACEE LANGE APRN 786.52 Painful Respiration 04/25/2010 TRACEE LANGE APRN 786.52 Painful Respiration 04/25/2010 786.52 Josselyn nful Respiration 04/25/2010 786.52 Josselyn nful Respiration 04/25/2010 KRANTHI PRECIDAO MD 786.5 2 Painful Respiration 04/25/2010 KRANTHI PRECIADO MD 786.5 2 Painful Respiration 04/25/2010 TRACEE LANGE APRN 786.52 Painful Respiration 04/25/2010 TRACEE LANGE APRN 786.52 Painful Respiration 04/25/2010 TRACEE LANGE APRN 786.52 Painful Respiration 04/25/2010 DEGROOT DO, GAVI K 786.52 Painful Respiration 04/25/2010 DEGROOT DO, GAVI K 786.52 Painful Respiration 04/25/2010 TRACEE LANGE APRN 786.52 Painful Respiration 04/25/2010 TRACEE LANGE APRN 786.52 Painful Respiration 04/25/2010 KRANTHI PRECIADO MD 786.5 2 Painful Respiration 08/20/2010 KRANTHI PRECIADO MD 465.9 Acute Upper Respiratory Infections Of Unspecified Site 08/20/2010 KRANTHI PRECIADO MD 491.2 1 Obstructive Chronic Bronchitis With (acute) Exacerbation 08/20/2010 465.9 Acut e Upper Respiratory Infections Of Unspecified Site 08/20/2010 491.21 Obs tructive Chronic Bronchitis With (acute) Exacerbation 08/20/2010 465.9 Acut e Upper Respiratory Infections Of Unspecified Site 08/20/2010 491.21 Obs tructive Chronic Bronchitis With (acute) Exacerbation 08/20/2010 TRACEE LANGE APRN T 46 5.9 Acute Upper Respiratory Infections Of Unspecified Site 08/20/2010 TRACEE LANGE APRN T 491.21 Obstructive Chronic Bronchitis With (acute) Exacerbati on 08/20/2010 TRACEE LANGE APRN T 46 5.9 Acute Upper Respiratory Infections Of Unspecified Site 08/20/2010 TRACEE LANGE APRN T 491.21 Obstructive Chronic Bronchitis With (acute) Exacerbati on 08/20/2010 465.9 Acut e Upper Respiratory Infections Of Unspecified Site 08/20/2010 491.21 Obs tructive Chronic Bronchitis With (acute) Exacerbation 08/20/2010 465.9 Acut e Upper Respiratory Infections Of Unspecified Site 08/20/2010 491.21 Obs tructive Chronic Bronchitis With (acute) Exacerbation 08/20/2010 KRANTHI PRECIADO MD 465.9 Acute Upper Respiratory Infections Of Unspecified Site 08/20/2010 KRANTHI PRECIADO MD 491.2 1 Obstructive Chronic Bronchitis With (acute) Exacerbation 08/20/2010 KRANTHI PRECIADO MD 465.9 Acute Upper Respiratory Infections Of Unspecified Site 08/20/2010 KRANTHI PRECIADO MD 491.2 1 Obstructive Chronic Bronchitis With (acute) Exacerbation 08/20/2010 TRACEE LANGE APRN T 46 5.9 Acute Upper Respiratory Infections Of Unspecified Site 08/20/2010 TRACEE LANGE APRN T 491.21 Obstructive Chronic Bronchitis With (acute) Exacerbati on 08/20/2010 TRACEE LANGE APRN T 46 5.9 Acute Upper Respiratory Infections Of Unspecified Site 08/20/2010 TRACEE LANGE APRN T 491.21 Obstructive Chronic Bronchitis With (acute) Exacerbati on 08/20/2010 TRACEE LANGE APRN T 46 5.9 Acute Upper Respiratory Infections Of Unspecified Site 08/20/2010 TRACEE LANGE APRN T 491.21 Obstructive Chronic Bronchitis With (acute) Exacerbati on 08/20/2010 GAVI DEGROOT DO 465.9 Acute Upper Respiratory Infections Of Unspecified Site 08/20/2010 GAVI DEGROOT DO 491.21 Obstructive Chronic Bronchitis With (acute) Exacerbation 08/20/2010 GAVI DEGROOT DO 465.9 Acute Upper Respiratory Infections Of Unspecified Site 08/20/2010 GAVI DEGROOT DO 491.21 Obstructive Chronic Bronchitis With (acute) Exacerbation 08/20/2010 TRACEE LANGE APRN 46 5.9 Acute Upper Respiratory Infections Of Unspecified Site 08/20/2010 TRACEE LANGE APRN 491.21 Obstructive Chronic Bronchitis With (acute) Exacerbati on 08/20/2010 TRACEE LANGE APRN 46 5.9 Acute Upper Respiratory Infections Of Unspecified Site 08/20/2010 TRACEE LANGE APRN 491.21 Obstructive Chronic Bronchitis With (acute) Exacerbati on 08/20/2010 KRANTHI PRECIADO MD 465.9 Acute Upper Respiratory Infections Of Unspecified Site 08/20/2010 KRANTHI PRECIADO MD 491.2 1 Obstructive Chronic Bronchitis With (acute) Exacerbation 11/04/2010 Ot 490 BRONCH ITIS NOS 11/04/2010 Ot 787.03 VOM ITING ALONE 12/19/2010 KRANTHI PRECIADO MD 780.7 9 Malaise And Fatigue 12/19/2010 780.79 Mal aise And Fatigue 12/19/2010 780.79 Mal aise And Fatigue 12/19/2010 TRACEE LANGE APRN 780.79 Malaise And Fatigue 12/19/2010 TRACEE LANGE APRN 780.79 Malaise And Fatigue 12/19/2010 780.79 Mal aise And Fatigue 12/19/2010 780.79 Mal aise And Fatigue 12/19/2010 KRANTHI PRECIADO MD 780.7 9 Malaise And Fatigue 12/19/2010 KRANTHI PRECIADO MD 780.7 9 Malaise And Fatigue 12/19/2010 TRACEE LANGE APRN 780.79 Malaise And Fatigue 12/19/2010 TRACEE LANGE APRN 780.79 Malaise And Fatigue 12/19/2010 TRACEE LANGE APRN 780.79 Malaise And Fatigue 12/19/2010 GAVI DEGROOT DO 780.79 Malaise And Fatigue 12/19/2010 GAVI DEGROOT DO 780.79 Malaise And Fatigue 12/19/2010 TRACEE LANGE APRN 780.79 Malaise And Fatigue 12/19/2010 TRACEE LANGE APRN 780.79 Malaise And Fatigue 12/19/2010 KRANTHI PRECIADO MD 780.7 9 Malaise And Fatigue 12/29/2010 Ot 305.20 CAN NABIS ABUSE- UNSPEC 12/29/2010 Ot 305.73 AMP HETAMINE ABUSE-REMISS 12/29/2010 Ot 345.90 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 12/29/2010 Ot 464.00 ACU TE LARYNGITIS W/O OBSTRUCTION 12/29/2010 Ot 493.22 CHR ONIC OBSTRUCTIVE ASTHMA, W (ACUTE) EX 12/29/2010 Ot 596.51 HYP ERTONICITY OF BLADDER 12/29/2010 Ot 796.2 ELEV BL PRES W/O HYPERTN 12/29/2010 Ot V12.09 PER DEEP HISTORY OTH SPEC INFECT RIOS 01/07/2011 KRANTHI PRECIADO MD 327.2 3 OBSTRUCTIVE SLEEP APNEA (ADULT) (PEDIATRIC) 01/07/2011 327.23 OBS TRUCTIVE SLEEP APNEA (ADULT) (PEDIATRIC) 01/07/2011 327.23 OBS TRUCTIVE SLEEP APNEA (ADULT) (PEDIATRIC) 01/07/2011 TRACEE LANGE APRN 327.23 OBSTRUCTIVE SLEEP APNEA (ADULT) (PEDIATRIC) 01/07/2011 TRACEE LANGE APRN 327.23 OBSTRUCTIVE SLEEP APNEA (ADULT) (PEDIATRIC) 01/07/2011 327.23 OBS TRUCTIVE SLEEP APNEA (ADULT) (PEDIATRIC) 01/07/2011 327.23 OBS TRUCTIVE SLEEP APNEA (ADULT) (PEDIATRIC) 01/07/2011 KRANTHI PRECIADO MD 327.2 3 OBSTRUCTIVE SLEEP APNEA (ADULT) (PEDIATRIC) 01/07/2011 KRANTHI PRECIADO MD 327.2 3 OBSTRUCTIVE SLEEP APNEA (ADULT) (PEDIATRIC) 01/07/2011 TRACEE [...] APNEA (ADULT) (PEDIATRIC) 01/07/2011 KRANTHI PRECIADO MD 327.2 3 OBSTRUCTIVE SLEEP APNEA (ADULT) (PEDIATRIC) 03/03/2011 Ot 780.39 OTH ER CONVULSIONS 03/19/2011 KRANTHI PRECIADO MD 780.6 0 Fever Unspecified 03/19/2011 KRANTHI PRECIADO MD 784.0 Headache 03/19/2011 KRANTHI PRECIADO MD 799.0 2 HYPOXEMIA 03/19/2011 780.60 Fev er Unspecified 03/19/2011 784.0 Headache 03/19/2011 799.02 HYP OXEMIA 03/19/2011 780.60 Fev er Unspecified 03/19/2011 784.0 Headache 03/19/2011 799.02 HYP OXEMIA 03/19/2011 TRACEE LANGE APRN 780.60 Fever Unspecified 03/19/2011 TRACEE LANGE APRN 78 4.0 Headache 03/19/2011 TRACEE LANGE APRN 799.02 HYPOXEMIA 03/19/2011 TRACEE LANGE APRN 780.60 Fever Unspecified 03/19/2011 TRACEE LANGE APRN 78 4.0 Headache 03/19/2011 TRACEE LANGE APRN 799.02 HYPOXEMIA 03/19/2011 780.60 Fev er Unspecified 03/19/2011 784.0 Headache 03/19/2011 799.02 HYP OXEMIA 03/19/2011 780.60 Fev er Unspecified 03/19/2011 784.0 Headache 03/19/2011 799.02 HYP OXEMIA 03/19/2011 KRANTHI PRECIADO MD 780.6 0 Fever Unspecified 03/19/2011 KRANTHI PRECIADO MD 784.0 Headache 03/19/2011 KRANTHI PRECIADO MD 799.0 2 HYPOXEMIA 03/19/2011 KRANTHI PRECIADO MD 780.6 0 Fever Unspecified 03/19/2011 KRANTHI PRECIADO MD 784.0 Headache 03/19/2011 KRANTHI PRECIADO MD 799.0 2 HYPOXEMIA 03/19/2011 TRACEE LANGE APRN 780.60 Fever Unspecified 03/19/2011 TRACEE LANGE APRN 78 4.0 Headache 03/19/2011 TRACEE LANGE APRN 799.02 HYPOXEMIA 03/19/2011 TRACEE LANGE APRN 780.60 Fever Unspecified 03/19/2011 TRACEE LANGE APRN 78 4.0 Headache 03/19/2011 TRACEE LANGE APRN 799.02 HYPOXEMIA 03/19/2011 TRACEE LANGE APRN 780.60 Fever Unspecified 03/19/2011 TRACEE LANGE APRN 78 4.0 Headache 03/19/2011 TRACEE LANGE APRN 799.02 HYPOXEMIA 03/19/2011 DEGROOT DO, GAVI K 780.60 Fever Unspecified 03/19/2011 DEGROOT DO, GAVI K 784.0 Headache 03/19/2011 DEGROOT DO, GAVI K 799.02 HYPOXEMIA 03/19/2011 DEGROOT DO, GAVI K 780.60 Fever Unspecified 03/19/2011 DEGROOT DO, GAVI K 784.0 Headache 03/19/2011 DEGROOT DO, GAVI K 799.02 HYPOXEMIA 03/19/2011 TRACEE LANGE APRN 780.60 Fever Unspecified 03/19/2011 TRACEE LANGE APRN 78 4.0 Headache 03/19/2011 TRACEE LANGE APRN 799.02 HYPOXEMIA 03/19/2011 TRACEE LANGE APRN 780.60 Fever Unspecified 03/19/2011 TRACEE LANGE APRN 78 4.0 Headache 03/19/2011 TRACEE LANGE APRN 799.02 HYPOXEMIA 03/19/2011 KRANTHI PRECIADO MD 780.6 0 Fever Unspecified 03/19/2011 KRANTHI PRECIADO MD 784.0 Headache 03/19/2011 KRANTHI PRECIADO MD 799.0 2 HYPOXEMIA 03/21/2011 Ot 345.90 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 03/21/2011 Ot 491.21 OBS TR CHRONIC BRONCHITIS, W (ACUTE) EXAC 03/21/2011 Ot 530.81 ESO PHAGEAL REFLUX 03/21/2011 Ot 596.51 HYP ERTONICITY OF BLADDER 03/24/2011 Ot 345.90 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 03/24/2011 Ot 496 CHR AI RWAY OBSTRUCT NEC 03/24/2011 Ot 518.4 ACUT E LUNG EDEMA NOS 03/24/2011 Ot 518.81 ACU TE RESPIRATORY FAILURE 03/24/2011 Ot 530.81 ESO PHAGEAL REFLUX 03/24/2011 Ot 596.51 HYP ERTONICITY OF BLADDER 03/24/2011 Ot 790.29 OTH ER ABNORMAL GLUCOSE 03/24/2011 Ot E932.0 ADV EFF CORTICOSTEROIDS 03/24/2011 Ot V46.2 SUPP LEMENTAL OXYGEN 03/25/2011 KRANTHI PRECIADO MD 790.2 9 PREDIABETES (IMPAIRED GLUCOSE TOLERANCE) 03/25/2011 790.29 PRE DIABETES (IMPAIRED GLUCOSE TOLERANCE) 03/25/2011 790.29 PRE DIABETES (IMPAIRED GLUCOSE TOLERANCE) 03/25/2011 TRACEE LANGE APRN 790.29 PREDIABETES (IMPAIRED GLUCOSE TOLERANCE) 03/25/2011 TRACEE LANGE APRN 790.29 PREDIABETES (IMPAIRED GLUCOSE TOLERANCE) 03/25/2011 790.29 PRE DIABETES (IMPAIRED GLUCOSE TOLERANCE) 03/25/2011 790.29 PRE DIABETES (IMPAIRED GLUCOSE TOLERANCE) 03/25/2011 KRANTHI PRECIADO MD 790.2 9 PREDIABETES (IMPAIRED GLUCOSE TOLERANCE) 03/25/2011 KRANTHI PRECIADO MD 790.2 9 PREDIABETES (IMPAIRED GLUCOSE TOLERANCE) 03/25/2011 TRACEE LANGE APRN 790.29 PREDIABETES (IMPAIRED GLUCOSE TOLERANCE) 03/25/2011 TRACEE LANGE APRN 790.29 PREDIABETES (IMPAIRED GLUCOSE TOLERANCE) 03/25/2011 TRACEE LANGE APRN 790.29 PREDIABETES (IMPAIRED GLUCOSE TOLERANCE) 03/25/2011 GAVI DEGROOT DO K 790.29 PREDIABETES (IMPAIRED GLUCOSE TOLERANCE) 03/25/2011 GAVI DEGROOT DO K 790.29 PREDIABETES (IMPAIRED GLUCOSE TOLERANCE) 03/25/2011 TRACEE LANGE APRN 790.29 PREDIABETES (IMPAIRED GLUCOSE TOLERANCE) 03/25/2011 TRACEE LANGE APRN 790.29 PREDIABETES (IMPAIRED GLUCOSE TOLERANCE) 03/25/2011 KRANTHI PRECIADO MD 790.2 9 PREDIABETES (IMPAIRED GLUCOSE TOLERANCE) 04/10/2011 KRANTHI PRECIADO MD 462 Sore Throat 04/10/2011 KRANTHI PRECIADO MD 496 CHRONIC OBSTRUCTIVE PULMONARY DISEASE 04/10/2011 462 Sore T hroat 04/10/2011 496 CHRONI C OBSTRUCTIVE PULMONARY DISEASE 04/10/2011 462 Sore T hroat 04/10/2011 496 CHRONI C OBSTRUCTIVE PULMONARY DISEASE 04/10/2011 TRACEE LANGE APRN T 46 2 Sore Throat 04/10/2011 TRACEE LANGE APRN T 49 6 CHRONIC OBSTRUCTIVE PULMONARY DISEASE 04/10/2011 TRACEE LANGE APRN T 46 2 Sore Throat 04/10/2011 TRACEE LANGE APRN T 49 6 CHRONIC OBSTRUCTIVE PULMONARY DISEASE 04/10/2011 462 Sore T hroat 04/10/2011 496 CHRONI C OBSTRUCTIVE PULMONARY DISEASE 04/10/2011 462 Sore T hroat 04/10/2011 496 CHRONI C OBSTRUCTIVE PULMONARY DISEASE 04/10/2011 KRANTHI PRECIADO MD 462 Sore Throat 04/10/2011 KRANTHI PRECIADO MD 496 CHRONIC OBSTRUCTIVE PULMONARY DISEASE 04/10/2011 KRANTHI PRECIADO MD 462 Sore Throat 04/10/2011 KRANTHI PRECIADO MD 496 CHRONIC OBSTRUCTIVE PULMONARY DISEASE 04/10/2011 TRACEE LANGE APRN 46 2 Sore Throat 04/10/2011 TRACEE LANGE APRN 49 6 CHRONIC OBSTRUCTIVE PULMONARY DISEASE 04/10/2011 TRACEE LANGE APRN 46 2 Sore Throat 04/10/2011 TRACEE LANGE APRN 49 6 CHRONIC OBSTRUCTIVE PULMONARY DISEASE 04/10/2011 TRACEE LANGE APRN 46 2 Sore Throat 04/10/2011 TRACEE LANGE APRN 49 6 CHRONIC OBSTRUCTIVE PULMONARY DISEASE 04/10/2011 DEGROOT DO, AGVI K 462 Sore Throat 04/10/2011 DEGROOT DO, GAVI K 496 CHRONIC OBSTRUCTIVE PULMONARY DISEASE 04/10/2011 DEGROOT DO, GAVI K 462 Sore Throat 04/10/2011 DEGROOT DO, GAVI K 496 CHRONIC OBSTRUCTIVE PULMONARY DISEASE 04/10/2011 TRACEE LANGE APRN T 46 2 Sore Throat 04/10/2011 TRACEE LANGE APRN 49 6 CHRONIC OBSTRUCTIVE PULMONARY DISEASE 04/10/2011 TRACEE LANGE APRN 46 2 Sore Throat 04/10/2011 TRACEE LANGE APRN 49 6 CHRONIC OBSTRUCTIVE PULMONARY DISEASE 04/10/2011 KRANTHI PRECIADO MD 462 Sore Throat 04/10/2011 KRANTHI PRECIADO MD 496 CHRONIC OBSTRUCTIVE PULMONARY DISEASE 04/12/2011 Ot 787.03 VOM ITING ALONE 07/02/2011 Ot 599.0 URIN TRACT INFECTION NOS 07/02/2011 Ot 789.09 ABD OMINAL PAIN, OTHER SPECIFIED SITE 07/17/2011 Ot 345.90 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 07/17/2011 Ot 496 CHR AI RWAY OBSTRUCT NEC 07/17/2011 Ot 530.81 ESO PHAGEAL REFLUX 07/17/2011 Ot 553.20 QUENTIN TRAL HERNIA NOS 07/17/2011 Ot 571.8 [facility] ATTENDANT MALKIA LIVER DIS NEC 07/17/2011 Ot 577.0 ACUT E PANCREATITIS 07/17/2011 Ot 587 RENAL SCLEROSIS NOS 07/17/2011 Ot 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 07/17/2011 Ot V58.69 OTH MED,LT,CURRENT USE 10/11/2011 Ot 305.73 AMP HETAMINE ABUSE-REMISS 10/11/2011 Ot 345.90 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 10/11/2011 Ot 403.90 HYP TNSV CHR KID DIS, UNSPEC, W CHR KD ST 10/11/2011 Ot 496 CHR AI RWAY OBSTRUCT NEC 10/11/2011 Ot 530.81 ESO PHAGEAL REFLUX 10/11/2011 Ot 585.9 [facility] ATTENDANT MALIKA KIDNEY DISEASE, UNSPECIFIED 10/11/2011 Ot 596.51 HYP ERTONICITY OF BLADDER 10/11/[address] PAIN NOS 10/11/2011 Ot V17.49 FAM EWA HISTORY OF OTHER CARDIOVASCULAR D 10/11/2011 Ot [address]45.[address] ABSENCE OF GENITAL ORGANS 10/11/2011 Ot V45.89 POS TSURGICAL STATES NEC 10/11/2011 Ot V58.69 OTH MED,LT,CURRENT USE 10/23/2011 KRANTHI PRECIADO MD 401.9 ESSENTIAL HYPERTENSION 10/23/2011 KRANTHI PRECIADO MD 530.8 1 ESOPHAGEAL REFLUX 10/23/2011 401.9 ESSE NTIAL HYPERTENSION 10/23/2011 530.81 ESO PHAGEAL REFLUX 10/23/2011 401.9 ESSE NTIAL HYPERTENSION 10/23/2011 530.81 ESO PHAGEAL REFLUX 10/23/2011 TRACEE LANGE APRN 40 1.9 ESSENTIAL HYPERTENSION 10/23/2011 TRACEE LANGE APRN 530.81 ESOPHAGEAL REFLUX 10/23/2011 TRACEE LANGE APRN 40 1.9 ESSENTIAL HYPERTENSION 10/23/2011 TRACEE LANGE APRN 530.81 ESOPHAGEAL REFLUX 10/23/2011 401.9 ESSE NTIAL HYPERTENSION 10/23/2011 530.81 ESO PHAGEAL REFLUX 10/23/2011 401.9 ESSE NTIAL HYPERTENSION 10/23/2011 530.81 ESO PHAGEAL REFLUX 10/23/2011 KRANTHI PRECIADO MD 401.9 ESSENTIAL HYPERTENSION 10/23/2011 KRANTHI PRECIADO MD 530.8 1 ESOPHAGEAL REFLUX 10/23/2011 KRANTHI PRECIADO MD 401.9 ESSENTIAL HYPERTENSION 10/23/2011 KRANTHI PRECIADO MD 530.8 1 ESOPHAGEAL REFLUX 10/23/2011 ANISA MOLINA TRACEE T 40 1.9 ESSENTIAL HYPERTENSION 10/23/2011 ANISA MOLINA TRACEE T 530.81 ESOPHAGEAL REFLUX 10/23/2011 ANISA MOLINA TRACEE T 40 1.9 ESSENTIAL HYPERTENSION 10/23/2011 ANISA MOLINA TRACEE T 530.81 ESOPHAGEAL REFLUX 10/23/2011 ANISA MOLINA TRACEE T 40 1.9 ESSENTIAL HYPERTENSION 10/23/2011 ANISA MOLINA TRACEE T 530.81 ESOPHAGEAL REFLUX 10/23/2011 DEGROOT DO, GAVI K 401.9 ESSENTIAL HYPERTENSION 10/23/2011 DEGROOT DO, GAVI K 530.81 ESOPHAGEAL REFLUX 10/23/2011 DEGROOT DO, GAVI K 401.9 ESSENTIAL HYPERTENSION 10/23/2011 DEGROOT DO, GAVI K 530.81 ESOPHAGEAL REFLUX 10/23/2011 ANISA MOLINA TRACEE T 40 1.9 ESSENTIAL HYPERTENSION 10/23/2011 ANISA MOLINA TRACEE T 530.81 ESOPHAGEAL REFLUX 10/23/2011 ANISA MOLINA TRACEE T 40 1.9 ESSENTIAL HYPERTENSION 10/23/2011 ANISA MOLINA TRACEE T 530.81 ESOPHAGEAL REFLUX 10/23/2011 KRANTHI PRECIADO MD 401.9 ESSENTIAL HYPERTENSION 10/23/2011 KRANTHI PRECIADO MD 530.8 1 ESOPHAGEAL REFLUX 03/28/2012 Ot 682.2 CELL ULITIS OF TRUNK 03/31/2012 KRANTHI PRECIADO MD 682.9 Cellulitis And Abscess Of Unspecified Sites 03/31/2012 KRANTHI PRECIADO MD 780.3 9 SEIZURES OTHER 03/31/2012 KRANTHI PRECIADO MD 787.0 1 NAUSEA WITH VOMITING 03/31/2012 682.9 Cell ulitis And Abscess Of Unspecified Sites 03/31/2012 780.39 SEI ZURES OTHER 03/31/2012 787.01 ANDREIA SEA WITH VOMITING 03/31/2012 682.9 Cell ulitis And Abscess Of Unspecified Sites 03/31/2012 780.39 SEI ZURES OTHER 03/31/2012 787.01 ANDREIA SEA WITH VOMITING 03/31/2012 TRACEE LANGE APRN 68 2.9 Cellulitis And Abscess Of Unspecified Sites 03/31/2012 TRACEE LANGE APRN 780.39 SEIZURES OTHER 03/31/2012 TRACEE LANGE APRN 787.01 NAUSEA WITH VOMITING 03/31/2012 TRACEE LANGE APRN 68 2.9 Cellulitis And Abscess Of Unspecified Sites 03/31/2012 TRACEE LANGE APRN 780.39 SEIZURES OTHER 03/31/2012 TRACEE LANGE APRN 787.01 NAUSEA WITH VOMITING 03/31/2012 682.9 Cell ulitis And Abscess Of Unspecified Sites 03/31/2012 780.39 SEI ZURES OTHER 03/31/2012 787.01 ANDREIA SEA WITH VOMITING 03/31/2012 682.9 Cell ulitis And Abscess Of Unspecified Sites 03/31/2012 780.39 SEI ZURES OTHER 03/31/2012 787.01 ANDREIA SEA WITH VOMITING 03/31/2012 KRANTHI PRECIADO MD 682.9 Cellulitis And Abscess Of Unspecified Sites 03/31/2012 KRANTHI PRECIADO MD 780.3 9 SEIZURES OTHER 03/31/2012 KRANTHI PRECIADO MD 787.0 1 NAUSEA WITH VOMITING 03/31/2012 KRANTHI PRECIADO MD 682.9 Cellulitis And Abscess Of Unspecified Sites 03/31/2012 KRANTHI PRECIADO MD 780.3 9 SEIZURES OTHER 03/31/2012 KRANTHI PRECIADO MD 787.0 1 NAUSEA WITH VOMITING 03/31/2012 TRACEE LANGE APRN 68 2.9 Cellulitis And Abscess Of Unspecified Sites 03/31/2012 TRACEE LANGE APRN 780.39 SEIZURES OTHER 03/31/2012 TRACEE LANGE APRN 787.01 NAUSEA WITH VOMITING 03/31/2012 TRACEE LANGE APRN 68 2.9 Cellulitis And Abscess Of Unspecified Sites 03/31/2012 TRACEE LANGE APRN 780.39 SEIZURES OTHER 03/31/2012 TRACEE LANGE APRN 787.01 NAUSEA WITH VOMITING 03/31/2012 TRACEE LANGE APRN 68 2.9 Cellulitis And Abscess Of Unspecified Sites 03/31/2012 [...] NAUSEA WITH VOMITING 03/31/2012 TRACEE LANGE APRN 68 2.9 Cellulitis And Abscess Of Unspecified Sites 03/31/2012 TRACEE LANGE APRN 780.39 SEIZURES OTHER 03/31/2012 TRACEE LANGE APRN 787.01 NAUSEA WITH VOMITING 03/31/2012 TRACEE LANGE APRN 68 2.9 Cellulitis And Abscess Of Unspecified Sites 03/31/2012 TRACEE LANGE APRN 780.39 SEIZURES OTHER 03/31/2012 TRACEE LANGE APRN 787.01 NAUSEA WITH VOMITING 03/31/2012 KRANTHI PRECIADO MD 682.9 Cellulitis And Abscess Of Unspecified Sites 03/31/2012 KRANTHI PRECIADO MD 780.3 9 SEIZURES OTHER 03/31/2012 KRANTHI PRECIADO MD 787.0 1 NAUSEA WITH VOMITING 05/11/2012 Ot 345.90 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 05/11/2012 Ot 401.9 HYPE RTENSION NOS 05/11/2012 Ot 491.21 OBS TR CHRONIC BRONCHITIS, W (ACUTE) EXAC 05/11/2012 Ot 530.81 ESO PHAGEAL REFLUX 05/11/2012 Ot 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 05/11/2012 Ot 596.51 HYP ERTONICITY OF BLADDER 05/11/2012 Ot 786.52 JOSSELYN NFUL RESPIRATION 05/11/2012 Ot 787.91 LILY RRHEA 05/11/2012 Ot V03.82 PRO PHYLACTIC VACC AGAINST STREPTOCOCCUS 05/26/2012 Ot 345.90 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 05/26/2012 Ot 401.9 HYPE RTENSION NOS 05/26/2012 Ot 496 CHR AI RWAY OBSTRUCT NEC 05/26/2012 Ot 530.81 ESO PHAGEAL REFLUX 05/26/2012 Ot 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 05/26/2012 Ot 786.05 TIFFANIE RTNESS OF BREATH 05/26/[address] PAIN NEC 05/26/2012 Ot 907.0 LT E FF INTRACRANIAL INJ 05/26/2012 Ot E929.3 LAT E EFF ACCIDENTAL FALL 07/10/2012 KRANTHI PRECIADO MD 368.1 0 VISUAL DISTURBANCE UNSPECIFIED 07/10/2012 368.10 VIS UAL DISTURBANCE UNSPECIFIED 07/10/2012 368.10 VIS UAL DISTURBANCE UNSPECIFIED 07/10/2012 TRACEE LANGE APRN 368.10 VISUAL DISTURBANCE UNSPECIFIED 07/10/2012 TRACEE LANGE APRN 368.10 VISUAL DISTURBANCE UNSPECIFIED 07/10/2012 368.10 VIS UAL DISTURBANCE UNSPECIFIED 07/10/2012 368.10 VIS UAL DISTURBANCE UNSPECIFIED 07/10/2012 KRANTHI PRECIADO MD 368.1 0 VISUAL DISTURBANCE UNSPECIFIED 07/10/2012 KRANTHI PRECIADO MD 368.1 0 VISUAL DISTURBANCE UNSPECIFIED 07/10/2012 TRACEE LANGE APRN 368.10 VISUAL DISTURBANCE UNSPECIFIED 07/10/2012 TRACEE LANGE APRN 368.10 VISUAL DISTURBANCE UNSPECIFIED 07/10/2012 TRACEE LANGE APRN 368.10 VISUAL DISTURBANCE UNSPECIFIED 07/10/2012 GAVI DEGROOT DO 368.10 VISUAL DISTURBANCE UNSPECIFIED 07/10/2012 GAVI DEGROOT DO 368.10 VISUAL DISTURBANCE UNSPECIFIED 07/10/2012 TRACEE LANGE APRN 368.10 VISUAL DISTURBANCE UNSPECIFIED 07/10/2012 TRACEE LANGE APRN 368.10 VISUAL DISTURBANCE UNSPECIFIED 07/10/2012 KRANTHI PRECIADO MD 368.1 0 VISUAL DISTURBANCE UNSPECIFIED 07/24/2012 Ot 276.51 DEH YDRATION 07/24/2012 Ot 345.90 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 07/24/2012 Ot 496 CHR AI RWAY OBSTRUCT NEC 07/24/2012 Ot 530.81 ESO PHAGEAL REFLUX 07/24/2012 Ot 558.9 EVA NF GASTROENTERIT NEC 07/29/2012 KRANTHI PRECIADO MD 070.7 0 HEPATITIS C, UNSPEC 07/29/2012 KRANTHI PRECIADO MD 789.0 3 ABDOMINAL PAIN RIGHT LOWER QUADRANT 07/29/2012 070.70 HEP ATITIS C, UNSPEC 07/29/2012 789.03 ABD OMINAL PAIN RIGHT LOWER QUADRANT 07/29/2012 070.70 HEP ATITIS C, UNSPEC 07/29/2012 789.03 ABD OMINAL PAIN RIGHT LOWER QUADRANT 07/29/2012 TRACEE LANGE APRN 070.70 HEPATITIS C, UNSPEC 07/29/2012 TRACEE LANGE APRN 789.03 ABDOMINAL PAIN RIGHT LOWER QUADRANT 07/29/2012 TRACEE LANGE APRN 070.70 HEPATITIS C, UNSPEC 07/29/2012 TRACEE LANGE APRN 789.03 ABDOMINAL PAIN RIGHT LOWER QUADRANT 07/29/2012 070.70 HEP ATITIS C, UNSPEC 07/29/2012 789.03 ABD OMINAL PAIN RIGHT LOWER QUADRANT 07/29/2012 070.70 HEP ATITIS C, UNSPEC 07/29/2012 789.03 ABD OMINAL PAIN RIGHT LOWER QUADRANT 07/29/2012 KRANTHI PRECIADO MD 070.7 0 HEPATITIS C, UNSPEC 07/29/2012 KRANTHI PRECIADO MD 789.0 3 ABDOMINAL PAIN RIGHT LOWER QUADRANT 07/29/2012 KRANTHI PRECIADO MD 070.7 0 HEPATITIS C, UNSPEC 07/29/2012 KRANTHI PRECIADO MD 789.0 3 ABDOMINAL PAIN RIGHT LOWER QUADRANT 07/29/2012 TRACEE [...] RIGHT LOWER QUADRANT 07/29/2012 KRANTHI PRECIADO MD 070.7 0 HEPATITIS C, UNSPEC 07/29/2012 KRANTHI PRECIADO MD 789.0 3 ABDOMINAL PAIN RIGHT LOWER QUADRANT 08/04/2012 Ot 272.4 HYPE RLIPIDEMIA NEC/NOS 08/04/2012 Ot 345.90 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 08/04/2012 Ot 401.9 HYPE RTENSION NOS 08/04/2012 Ot 414.01 COR ONARY ATHEROSCLEROSIS OF [place] CORON 08/04/2012 Ot 496 CHR AI RWAY OBSTRUCT NEC 08/04/2012 Ot 530.81 ESO PHAGEAL REFLUX 08/04/[address] PAIN NEC 09/16/2012 788.30 URI NARY INCONTINENCE UNSPECIFIED 09/16/2012 788.30 URI NARY INCONTINENCE UNSPECIFIED 09/16/2012 RTACEE LANGE APRN 788.30 URINARY INCONTINENCE UNSPECIFIED 09/16/2012 TRACEE LANGE APRN 788.30 URINARY INCONTINENCE UNSPECIFIED 09/16/2012 788.30 URI NARY INCONTINENCE UNSPECIFIED 09/16/2012 788.30 URI NARY INCONTINENCE UNSPECIFIED 09/16/2012 KRANTHI PRECIADO MD 788.3 0 URINARY INCONTINENCE UNSPECIFIED 09/16/2012 KRANTHI PRECIADO MD 788.3 0 URINARY INCONTINENCE UNSPECIFIED 09/16/2012 TRACEE LANGE APRN 788.30 URINARY INCONTINENCE UNSPECIFIED 09/16/2012 TRACEE LANGE APRN 788.30 URINARY INCONTINENCE UNSPECIFIED 09/16/2012 TRACEE LANGE APRN 788.30 URINARY INCONTINENCE UNSPECIFIED 09/16/2012 GAVI DEGROOT DO 788.30 URINARY INCONTINENCE UNSPECIFIED 09/16/2012 GAVI DEGROOT DO 788.30 URINARY INCONTINENCE UNSPECIFIED 09/16/2012 TRACEE LANGE APRN 788.30 URINARY INCONTINENCE UNSPECIFIED 09/16/2012 TARCEE LANGE APRN 788.30 URINARY INCONTINENCE UNSPECIFIED 09/16/2012 KRANTHI PRECIADO MD 788.3 0 URINARY INCONTINENCE UNSPECIFIED 10/19/2012 528.9 ORAL MUCOCELE 10/19/2012 TRACEE LANGE APRN T 52 8.9 ORAL MUCOCELE 10/19/2012 TRACEE LANGE APRN T 52 8.9 ORAL MUCOCELE 10/19/2012 528.9 ORAL MUCOCELE 10/19/2012 528.9 ORAL MUCOCELE 10/19/2012 KRANTHI PRECIADO MD 528.9 ORAL MUCOCELE 10/19/2012 KRANTHI PRECIADO MD 528.9 ORAL MUCOCELE 10/19/2012 TRACEE LANGE APRN T 52 8.9 ORAL MUCOCELE 10/19/2012 TRACEE LANGE APRN T 52 8.9 ORAL MUCOCELE 10/19/2012 TRACEE LANGE APRN T 52 8.9 ORAL MUCOCELE 10/19/2012 DEGROOT DO, GAVI K 528.9 ORAL MUCOCELE 10/19/2012 DEGROOT DO, GAVI K 528.9 ORAL MUCOCELE 10/19/2012 TRACEE LANGE APRN 52 8.9 ORAL MUCOCELE 10/19/2012 TRACEE LANGE APRN 52 8.9 ORAL MUCOCELE 10/19/2012 KRANTHI PRECIADO MD 528.9 ORAL MUCOCELE 10/28/2012 TRACEE LANGE APRN 278.00 OBESITY 10/28/2012 TRACEE LANGE APRN 278.00 OBESITY 10/28/2012 278.00 OBESITY 10/28/2012 278.00 OBESITY 10/28/2012 KRANTHI PRECIADO MD 278.0 0 OBESITY 10/28/2012 KRANTHI PRECIADO MD 278.0 0 OBESITY 10/28/2012 TRACEE LANGE APRN 278.00 OBESITY 10/28/2012 TRACEE LANGE APRN T 278.00 OBESITY 10/28/2012 TRACEE LANGE APRN 278.00 OBESITY 10/28/2012 DEGROOT DO, GAVI K 278.00 OBESITY 10/28/2012 DEGROOT DO, GAVI K 278.00 OBESITY 10/28/2012 TRACEE LANGE APRN T 278.00 OBESITY 10/28/2012 TRACEE LANGE APRN T 278.00 OBESITY 10/28/2012 KRANTHI PRECIADO MD 278.0 0 OBESITY 12/09/2012 TRACEE LANGE APRN 780.79 fatigue 12/09/2012 780.79 fatigue 12/09/2012 780.79 fatigue 12/09/2012 KRANTHI PRECIADO MD 780.7 9 fatigue 12/09/2012 KRANTHI PRECIADO MD 780.7 9 fatigue 12/09/2012 TRACEE LANGE APRN 780.79 fatigue 12/09/2012 TRACEE LANGE APRN 780.79 fatigue 12/09/2012 TRACEE LANGE APRN 780.79 fatigue 12/09/2012 DEGROOT DOAGUSTÍNA K 780.79 fatigue 12/09/2012 DEGROOT DO, GAVI K 780.79 fatigue 12/09/2012 TRACEE LANGE APRN 780.79 fatigue 12/09/2012 TRACEE LANGE APRN 780.79 fatigue 12/09/2012 KRANTHI PRECIADO MD 780.7 9 fatigue 12/20/2012 Ot 272.4 HYPE RLIPIDEMIA NEC/NOS 12/20/2012 Ot 276.7 HYPE RPOTASSEMIA 12/20/2012 Ot 305.70 AMP HETAMINE ABUSE-UNSPEC 12/20/2012 Ot 345.90 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 12/20/2012 Ot 401.9 HYPE RTENSION NOS 12/20/2012 Ot 414.01 COR ONARY ATHEROSCLEROSIS OF [place] CORON 12/20/2012 Ot 486 PNEUMO ALEJA, ORGANISM NOS 12/20/2012 Ot 491.21 OBS TR CHRONIC BRONCHITIS, W (ACUTE) EXAC 12/20/2012 Ot 530.81 ESO PHAGEAL REFLUX 12/20/2012 Ot 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 12/20/2012 Ot 724.2 LUMBAGO 12/20/[address] PAIN NEC 12/20/2012 Ot 787.91 LILY RRHEA 12/20/2012 Ot 790.29 OTH ER ABNORMAL GLUCOSE 12/20/2012 Ot E929.9 LAT E EFF ACCIDENT NOS 12/20/2012 Ot E932.0 ADV EFF CORTICOSTEROIDS 12/20/2012 Ot V15.81 HX OF PAST NONCOMPLIANCE 12/21/2012 TRACEE LANGE APRN 6.7 HYPERKALEMIA 12/21/2012 276.7 HYPE RKALEMIA 12/21/2012 276.7 HYPE RKALEMIA 12/21/2012 KRANTHI PRECIADO MD 276.7 HYPERKALEMIA 12/21/2012 KRANTHI PRECIADO MD 276.7 HYPERKALEMIA 12/21/2012 TRACEE LANGE APRN 6.7 HYPERKALEMIA 12/21/2012 TRACEE LANGE APRN 27 6.7 HYPERKALEMIA 12/21/2012 TRACEE LANGE APRN 27 6.7 HYPERKALEMIA 12/21/2012 DEGROOT DO, GAVI K 276.7 HYPERKALEMIA 12/21/2012 DEGROOT DO, GAVI K 276.7 HYPERKALEMIA 12/21/2012 TRACEE LANGE APRN 27 6.7 HYPERKALEMIA 12/21/2012 TRACEE LANGE APRN 27 6.7 HYPERKALEMIA 12/21/2012 KRANTHI PRECIADO MD 276.7 HYPERKALEMIA 05/11/2013 NGOC CASTILLO MD Ot 070. 54 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 05/11/2013 NGOC CASTILLO MD Ot 305. 1 TOBACCO USE DISORDER 05/11/2013 NGOC CASTILLO MD Ot 345. 90 EPILEPSY UNSPEC W/O MENTION INTRACTABLE 05/11/2013 NGOC CASTILLO MD Ot 401. 9 HYPERTENSION NOS 05/11/2013 NGOC CASTILLO MD Ot 414. 01 CORONARY ATHEROSCLEROSIS OF [place] CORON 05/11/2013 NGOC CASTILLO MD Ot 425. 4 PRIM CARDIOMYOPATHY NEC 05/11/2013 NGOC CASTILLO MD Ot 428. 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 81 ESOPHAGEAL REFLUX 05/11/2013 NGOC CASTILLO MD Ot 728. 87 MUSCLE WEAKNESS (GENERALIZED) 05/11/2013 NGOC CASTILLO MD Ot 789. 01 ABDOMINAL PAIN, RIGHT UPPER QUADRANT 05/11/2013 NGOC CASTILLO MD Ot 790. 99 BLOOD EXAM - OTH NONSPECIFIC FINDINGS 05/18/2013 414.8 OTHE R SPECIFIED FORMS OF CHRONIC ISCHEMIC HEART DISEASE 05/18/2013 KRANTHI PRECIADO MD 414.8 OTHER SPECIFIED FORMS OF CHRONIC ISCHEMIC HEART DISEASE 05/18/2013 KRANTHI PRECIADO MD 414.8 OTHER SPECIFIED FORMS OF CHRONIC ISCHEMIC HEART DISEASE 05/18/2013 TRACEE LANGE APRN 41 4.8 OTHER SPECIFIED FORMS OF CHRONIC ISCHEMIC HEART DISEASE 05/18/2013 TRACEE LANGE APRN 41 4.8 OTHER SPECIFIED FORMS OF CHRONIC ISCHEMIC HEART DISEASE 05/18/2013 TRACEE LANGE APRN 41 4.8 OTHER SPECIFIED FORMS OF CHRONIC ISCHEMIC HEART DISEASE 05/18/2013 DEGROOT GAVI LANGE K 414.8 OTHER SPECIFIED FORMS OF CHRONIC ISCHEMIC HEART DISEASE 05/18/2013 DEGROOT DOGAVI K 414.8 OTHER SPECIFIED FORMS OF CHRONIC ISCHEMIC HEART DISEASE 05/18/2013 TRACEE LANGE APRN 41 4.8 OTHER SPECIFIED FORMS OF CHRONIC ISCHEMIC HEART DISEASE 05/18/2013 TRACEE LANGE APRN 41 4.8 OTHER SPECIFIED FORMS OF CHRONIC ISCHEMIC HEART DISEASE 05/18/2013 KRANTHI PRECIADO MD 414.8 OTHER SPECIFIED FORMS OF CHRONIC ISCHEMIC HEART DISEASE 05/21/2013 414.00 CAD 05/21/2013 425.4 CARD IOMYOPHATHY 05/21/2013 854.00 INT RACRANIAL INJURY OF OTHER AND UNSPECIFIED NATURE WITHOUT OPEN INTRACRANIAL WOUND WITH STATE OF CONSCIOUSNESS UNSPECIFIED 05/21/2013 KRANTHI PRECIADO MD 414.0 0 CAD 05/21/2013 KRANTHI PRECIADO MD 425.4 CARDIOMYOPHATHY 05/21/2013 KRANTHI PRECIADO MD 854.0 0 INTRACRANIAL INJURY OF OTHER AND UNSPECIFIED NATURE WITHOUT OPEN INTRACRANIAL WOUND WITH STATE OF CONSCIOUSNESS UNSPECIFIED 05/21/2013 KRANTHI PRECIADO MD 414.0 0 CAD 05/21/2013 KRANTHI PRECIADO MD 425.4 CARDIOMYOPHATHY 05/21/2013 KRANTHI PRECIADO MD 854.0 0 INTRACRANIAL INJURY OF OTHER AND UNSPECIFIED NATURE WITHOUT OPEN INTRACRANIAL WOUND WITH STATE OF CONSCIOUSNESS UNSPECIFIED 05/21/2013 TRACEE LANGE APRN 414.00 CAD 05/21/2013 TRACEE LANGE APRN 42 5.4 CARDIOMYOPHATHY 05/21/2013 TRACEE LANGE APRN 854.00 INTRACRANIAL INJURY OF OTHER AND UNSPECI FIED NATURE WITHOUT OPEN INTRACRANIAL WOUND WITH STATE OF CONSCIOUSNESS UNSPECIFIED 05/21/2013 TRACEE LANGE APRN 414.00 CAD 05/21/2013 TRACEE LANGE APRN 42 5.4 CARDIOMYOPHATHY 05/21/2013 TRACEE LANGE APRN 854.00 INTRACRANIAL INJURY OF OTHER AND UNSPECI FIED NATURE WITHOUT OPEN INTRACRANIAL WOUND WITH STATE OF CONSCIOUSNESS UNSPECIFIED 05/21/2013 TRACEE LANGE APRN 414.00 CAD 05/21/2013 TRACEE LANGE APRN 42 5.4 CARDIOMYOPHATHY 05/21/2013 TRACEE LANGE APRN T 854.00 INTRACRANIAL INJURY OF OTHER AND UNSPECI FIED NATURE WITHOUT OPEN INTRACRANIAL WOUND WITH STATE [...] APRN 414.00 CAD 05/21/2013 TRACEE LANGE APRN 42 5.4 CARDIOMYOPHATHY 05/21/2013 TRACEE LANGE APRN 854.00 INTRACRANIAL INJURY OF OTHER AND UNSPECI FIED NATURE WITHOUT OPEN INTRACRANIAL WOUND WITH STATE OF CONSCIOUSNESS UNSPECIFIED 05/21/2013 TRACEE LANGE APRN 414.00 CAD 05/21/2013 TRACEE LANGE APRN 42 5.4 CARDIOMYOPHATHY 05/21/2013 TRACEE LANGE APRN 854.00 INTRACRANIAL INJURY OF OTHER AND UNSPECI FIED NATURE WITHOUT OPEN INTRACRANIAL WOUND WITH STATE OF CONSCIOUSNESS UNSPECIFIED 05/21/2013 KRANTHI PRECIADO MD 414.0 0 CAD 05/21/2013 KRANTHI PRECIADO MD 425.4 CARDIOMYOPHATHY 05/21/2013 KRANTHI PRECIADO MD 854.0 0 INTRACRANIAL INJURY OF OTHER AND UNSPECIFIED NATURE WITHOUT OPEN INTRACRANIAL WOUND WITH STATE OF CONSCIOUSNESS UNSPECIFIED 05/30/2013 SANTHOSH LOWE MD Ot 425.4 PRIM CARDIOMYOPATHY NEC 05/30/2013 SANTHOSH LOWE MD Ot 786.50 CHEST PAIN NOS 05/30/2013 SANTHOSH LOWE MD Ot V58.66 LONG-TERM (CURRENT) USE OF ASPIRIN 05/30/2013 SANTHOSH LOWE MD Ot V58.69 OT MED,LT,CURRENT USE 06/24/2013 DEGROOT DO, GAVI K Ot 041.04 STREPTOCOCCUS INFECTION NOS, GROUP D (EN 06/24/2013 DEGROOT DO GAVI K Ot 041.12 METHICILLIN RESISTANT STAPHYLOCOCCUS AUR 06/24/2013 GAVI DEGROOT DO Ot 041.84 BACTERIAL INFECTION DUE TO OTHER ANAEROB 06/24/2013 GAVI DEGROOT DO Ot 041.85 BACTERIAL INFEC DUE TO OTH GRAM-NEG ORGA 06/24/2013 GAVI DEGROOT DO Ot 070.54 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 06/24/2013 GAVI DEGROOT DO Ot 276.7 HYPERPOTASSEMIA 06/24/2013 GAVI DEGROOT DO Ot 285.29 ANEMIA OF OTHER CHRONIC DISEASE 06/24/2013 GAVI DEGROOT DO Ot 300.00 ANXIETY STATE NOS 06/24/2013 GAVI DEGROOT DO Ot 305.70 AMPHETAMINE ABUSE-UNSPEC 06/24/2013 AGUSTÍN DEGROOT DOA Alec Ot 311 DEPRESSIVE DISORDER NEC 06/24/2013 GAVI DEGROOT DO Ot 345.90 EPILEPSY UNSPEC W/O MENTION INTRACTABLE 06/24/2013 GAVI DEGROOT DO Ot 403.90 HYPTNSV CHR KID DIS, UNSPEC, W CHR KD ST 06/24/2013 GAVI DEGROOT DO Ot 414.01 CORONARY ATHEROSCLEROSIS OF [place] CORON 06/24/2013 GAVI DEGROOT DO Ot 425.4 [...] Ot 785.0 TACHYCARDIA NOS 07/29/2013 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 70 UNSPECIFIED VIRAL 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 09/14/2013 ABELARDO AMANDA MD Ot 305. 20 CANNABIS ABUSE-UNSPEC 09/14/2013 ABELARDO AMANDA MD Ot 305. 70 AMPHETAMINE ABUSE-UNSPEC 09/14/2013 ABELARDO AMANDA MD Ot 338. 29 OTHER CHRONIC PAIN 09/14/2013 ABELARDO AMANDA MD Ot 403. 90 HYPTNSV CHR KID DIS, UNSPEC, W CHR KD ST 09/14/2013 ABELARDO AMANDA MD Ot 414. 01 CORONARY ATHEROSCLEROSIS OF [place] CORON 09/14/2013 ABELARDO AMANDA MD Ot 425. 4 PRIM CARDIOMYOPATHY NEC 09/14/2013 ABELARDO AMANDA MD Ot 428. 0 CONGESTIVE HEART FAILURE NOS 09/14/2013 ABELARDO AMANDA MD Ot 428. 22 CHRONIC SYSTOLIC HRT FAILURE 09/14/2013 ABELARDO AMANDA MD Ot 493. 20 CHRONIC OBSTRUCTIVE ASTHMA, NOS 09/14/2013 ABELARDO AMANDA MD Ot 530. 81 ESOPHAGEAL REFLUX 09/14/2013 ABELARDO AMANDA MD Ot 553. 20 VENTRAL HERNIA NOS 09/14/2013 ABELARDO AMANDA MD Ot 585. 9 CHRONIC KIDNEY DISEASE, UNSPECIFIED 09/14/2013 ABELARDO AMANDA MD Ot 724. 5 BACKACHE NOS 09/14/2013 ABELARDO AMANDA MD Ot 729. 5 PAIN IN LIMB 09/14/2013 ABELARDO AMANDA MD Ot 780. 39 OTHER CONVULSIONS 09/14/2013 ABELARDO AMANDA MD Ot 780. 4 DIZZINESS AND GIDDINESS 09/14/2013 ABELARDO AMANDA MD Ot 786. 50 CHEST PAIN NOS 09/14/2013 ABELARDO AMANDA MD Ot 790. 99 BLOOD EXAM - OTH NONSPECIFIC FINDINGS 09/14/2013 ABELARDO AMANDA MD Ot V04. 81 ND FOR PROPHYLACTIC VACCIN AND INOCULATI 09/14/2013 ABELARDO AMANDA MD Ot V12. 54 PERSONAL HX OF TIA, CEREBRAL INFARCTION 09/15/2013 QUIN JONES MD Ot 490 BRONCHITIS NOS 09/15/2013 QUIN JONES MD Ot 786.2 COUGH 09/18/2013 TRACEE LANGE APRN T 78 6.2 COUGH 09/18/2013 TRACEE LANGE APRN T 78 6.2 COUGH 09/18/2013 TRACEE LANGE APRN T 78 6.2 COUGH 09/18/2013 GAVI DEGROOT DO K 786.2 COUGH 09/18/2013 AGUSTÍN DEGROOT DOA K 786.2 COUGH 09/18/2013 TRACEE LANGE APRN 78 6.2 COUGH 09/18/2013 TRACEE LANGE APRN 78 6.2 COUGH 09/18/2013 KRANTHI PRECIADO MD 786.2 COUGH 09/29/2013 CHRISSY GONZALES, SANTHOSH Castellano Ot 425.4 PRIM CARDIOMYOPATHY NEC 09/29/2013 CHRISSY GONZALES, SANTHOSH Castellano Ot 786.59 CHEST PAIN NEC 09/29/2013 CHRISSY GONZALES, SANTHOSH Castellano Ot 790.92 COAGULATION PROFILE, ABNORMAL 11/14/2013 NEERAJ VILLA APRN Ot 724 .2 LUMBAGO 11/14/2013 NEERAJ VILLA APRN Ot 789.00 ABDOMINAL PAIN, UNSPECIFIED SITE 02/04/2014 KAILA LANGE HOLA K Ot 300.00 ANXIETY STATE NOS 02/04/2014 MARIN BRIGHT DOA Alec Ot 491.21 OBSTR CHRONIC BRONCHITIS, W (ACUTE) EXAC 02/04/2014 MARIN BRIGHT DOA K Ot 786.50 CHEST PAIN NOS 02/04/2014 KAILA LANGE HOLA K Ot V15.81 HX OF PAST NONCOMPLIANCE 02/07/2014 TRACEE LANGE APRN 78 6.6 SWELLING MASS OR LUMP IN CHEST 02/07/2014 AGUSTÍN DEGROOT DOA K 786.6 SWELLING MASS OR LUMP IN CHEST 02/07/2014 GAVI DEGROOT DO K 786.6 SWELLING MASS OR LUMP IN CHEST 02/07/2014 TRACEE LANGE APRN 78 6.6 SWELLING MASS OR LUMP IN CHEST 02/07/2014 TRACEE LANGE APRN 78 6.6 SWELLING MASS OR LUMP IN CHEST 02/07/2014 KRANTHI PRECIADO MD 786.6 SWELLING MASS OR LUMP IN CHEST 03/18/2014 NEERAJ VILLA APRN Ot 491.20 OBSTR CHRONIC BRONCHITIS, W/O EXACERBATI 03/18/2014 NEERAJ VILLA APRN Ot 786.05 SHORTNESS OF BREATH 04/08/2014 AGUSTÍN DEGROOT DOA K Ot 285.29 ANEMIA OF OTHER CHRONIC DISEASE 04/08/2014 AGUSTÍN DEGROOT DOA K Ot 296.80 BIPOLAR DISORDER, UNSPECIFIED 04/08/2014 MIKAYLA LANGE GAVI K Ot 300.00 ANXIETY STATE NOS 04/08/2014 MIKAYLA LANGE GAVI K Ot 305.70 AMPHETAMINE ABUSE-UNSPEC 04/08/2014 MIKAYLA LANGE GAVI K Ot 397.0 TRICUSPID [...] W (ACUTE) EX 04/08/2014 MIKAYLA LANGE GAVI Michael Ot 518.84 ACUTE AND CHRONIC RESPIRATORY FAILURE 04/08/2014 MIKAYLA LANGE GAVI Michael Ot 530.81 ESOPHAGEAL REFLUX 04/08/2014 MIKAYLA LANGE GAVI Michael Ot 585.9 CHRONIC KIDNEY DISEASE, UNSPECIFIED 04/08/2014 MIKAYLA LANGE GAVI Michael Ot V15.52 PERSONAL HISTORY OF TRAUMATIC BRAIN INJU 04/08/2014 MIKAYLA LANGE GAVI Michael Ot V45.02 AUTO IMPLANTABLE CARDIAC DEFIBRILLATOR I 04/09/2014 NEERAJ VILLA CEMENT 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 Ot 486 PNEUMONIA, ORGANISM NOS 04/09/2014 NEERAJ VILLA CEMENT 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 Ot 511 .9 PLEURAL EFFUSION NOS 05/25/2014 MATTHEW DAVID MD Ot 250.00 DIAB SHEFALI WO COMPL, TYPE II OR UNSPEC TY 05/25/2014 MATTHEW DAVID MD Ot 276 .7 HYPERPOTASSEMIA 05/25/2014 MATTHEW DAVID MD Ot 285.29 ANEMIA OF OTHER CHRONIC DISEASE 05/25/2014 MATTHEW DAVID MD Ot 305.71 AMPHETAMINE ABUSE-CONTIN 05/25/2014 MATTHEW DAVID MD Ot 403.90 HYPTNSV CHR KID DIS, UNSPEC, W CHR KD ST 05/25/2014 MATTHEW DAVID MD Ot 425 .4 PRIM CARDIOMYOPATHY NEC 05/25/2014 MATTHEW DAVID MD Ot 428.23 ACUTE CHRONIC SYSTOLIC HRT FAILURE 05/25/2014 MATTHEW DAVID MD Ot 491.21 OBSTR CHRONIC BRONCHITIS, W (ACUTE) EXAC 05/25/2014 MATTHEW DAVID MD Ot 518.84 ACUTE AND CHRONIC RESPIRATORY FAILURE 05/25/2014 MATTHEW DAVID MD Ot 585 .9 CHRONIC KIDNEY DISEASE, UNSPECIFIED 05/25/2014 MATTHEW DAVID [...] STAR ORTIZ Ot E888.9 FALL NOS 06/10/2014 AGUSTÍN DEGROOT DOA K Ot 038.9 SEPTICEMIA NOS 06/10/2014 AGUSTÍN DEGROOT DOA K Ot 041.11 METHICILLIN SUSCEPTIBLE STAPHYLOCOCCUS A [...] 428.0 CONGESTIVE HEART FAILURE NOS 06/10/2014 MIKAYLA LANGE GAVI K Ot 496 CHR AIRWAY OBSTRUCT NEC 06/10/2014 MIKAYLA LANGE GAVI K Ot 518.83 CHRONIC RESPIRATORY FAILURE 06/10/2014 MIKAYLA LANGE GAVI K Ot 585.3 CHRONIC KIDNEY DISEASE, STAGE III (MODER 06/10/2014 GAVI DEGROOT DO Ot 719.45 JOINT PAIN-PELVIS 06/10/2014 GAVI DEGROOT DO Ot 995.91 SEPSIS 06/10/2014 MIKAYLA LANGE GAVI Michael Ot V15.81 HX OF PAST NONCOMPLIANCE 08/05/2014 TRACEE LANGE APRN 422.92 SEPTIC MYOCARDITIS 08/05/2014 TRACEE LANGE APRN 422.92 SEPTIC MYOCARDITIS 08/05/2014 KRANTHI PRECIADO MD 422.9 2 SEPTIC MYOCARDITIS 11/27/2014 STAR ORTIZ Ot 724.2 LUMBAGO 11/28/2014 TRACEE LANGE APRN 72 4.4 THORACIC OR LUMBOSACRAL NEURITIS OR RADICULITIS UNSPECIFIED 11/28/2014 KRANTHI PRECIADO MD 724.4 THORACIC OR LUMBOSACRAL NEURITIS OR RADICULITIS UNSPECIFIED 12/01/2014 Ot 724.2 LUMBAGO 12/01/2014 Ot 788.1 DYSURIA 01/19/2015 SANTHOSH LOWE MD Ot 724.2 LUMBAGO 01/19/2015 SANTHOSH LOWE MD [...] OTHER SERUM ENZYMES 01/27/2016 Ot 496 CHR AI RWAY OBSTRUCT NEC 01/27/2016 Ot 780.09 OT ER ALTERATION OF CONSCIOUSNESS 01/27/2016 Ot 780.39 OTH ER CONVULSIONS 01/27/2016 Ot 786.59 [facility] PAIN NEC 01/27/2016 ABELARDO AMANDA MD Ot 397. 0 TRICUSPID VALVE DISEASE 01/27/2016 ABELARDO AMANDA MD Ot 424. 0 MITRAL VALVE DISORDER 01/27/2016 VASILIY GONZALES, ABELARDO Valdovinos Ot 428. 0 CONGESTIVE HEART FAILURE NOS 01/27/2016 VASILIY GONZALES, ABELARDO Valdovinos Ot 428. 0 CONGESTIVE HEART FAILURE NOS 01/28/2016 KAILA DO, [...] K Ot E86.0 DEHYDRATION 02/13/2016 KAILA DO, HOAL K Ot I12.9 HYPERTENSIVE CHRONIC KIDNEY DISEASE W ST 02/13/2016 KAILA DO, HOLA K Ot J44.9 CHRONIC OBSTRUCTIVE PULMONARY DISEASE, U 02/13/2016 KAILA DO, HOLA K Ot K52.9 NONINFECTIVE GASTROENTERITIS AND COLITIS 02/13/2016 KAILA DO, HOLA K Ot N18.9 CHRONIC KIDNEY DISEASE, UNSPECIFIED 02/13/2016 KAILA DO, HOLA K Ot N39.0 URINARY TRACT INFECTION, SITE NOT SPECIF 08/05/2016 VASILIYABELARDO DIAZ MD Ot 397. 0 TRICUSPID VALVE DISEASE 08/05/2016 ABELARDO AMANDA MD Ot 424. 0 MITRAL VALVE DISORDER 08/05/2016 ABELARDO AMANDA MD Ot 428. 0 CONGESTIVE HEART FAILURE NOS 08/05/2016 ABELARDO AMANDA MD Ot 428. 0 CONGESTIVE HEART FAILURE NOS 08/05/2016 KAILA DO, HOLA K Ot I10 ESSENTIAL (PRIMARY) HYPERTENSION 08/05/2016 KAILA DO, HOLA K Ot J44.9 CHRONIC OBSTRUCTIVE PULMONARY DISEASE, U 08/05/2016 KAILA DO, HOLA K Ot L03.115 CELLULITIS OF RIGHT LOWER LIMB 08/05/2016 KAILA DO, HOLA K Ot N39.0 URINARY TRACT INFECTION, SITE NOT SPECIF 08/05/2016 KAILA DO, HOLA K Ot R30.0 DYSURIA 08/05/2016 KAILA DO HOLA K Ot Z23 ENCOUNTER FOR IMMUNIZATION 08/05/2016 KAILA DO, HOLA K Ot Z79.899 OTHER LABEL OPERATOR (CURRENT) DRUG THERAPY 08/05/2016 KAILA , HOLA K Ot Z87.891 PERSONAL HISTORY OF NICOTINE DEPENDENCE 11/23/2016 ABELARDO AMANDA MD Ot 397. 0 TRICUSPID VALVE DISEASE 11/23/2016 ABELARDO AMANDA MD Ot 424. 0 MITRAL VALVE DISORDER 11/23/2016 ABELARDO AMANDA MD Ot 428. 0 CONGESTIVE HEART FAILURE NOS 11/23/2016 ABELARDO AMANDA MD Ot 428. 0 CONGESTIVE HEART FAILURE NOS 11/23/2016 ABELARDO AMANDA MD Ot 397. 0 TRICUSPID VALVE DISEASE 11/23/2016 ABELARDO AMANDA MD Ot 424. 0 MITRAL VALVE DISORDER 11/23/2016 ABELARDO AMANDA MD Ot 428. 0 CONGESTIVE HEART FAILURE NOS 11/23/2016 ABELARDO AMANDA MD Ot 428. 0 CONGESTIVE HEART FAILURE NOS 11/23/2016 QUIN JONES MD Ot I25.10 ATHSCL HEART DISEASE OF [place] CORONARY 11/23/2016 QUIN JONES MD Ot J44.9 CHRONIC OBSTRUCTIVE PULMONARY DISEASE, U 11/23/2016 QUIN JONES MD Ot R05 COUGH 11/23/2016 QUIN JONES MD Ot Z79.899 OTHER LABEL OPERATOR (CURRENT) DRUG THERAPY 11/26/2016 QUIN JONES MD Ot I25.10 ATHSCL HEART DISEASE OF [place] CORONARY 11/26/2016 QUIN JONES MD Ot J44.9 CHRONIC OBSTRUCTIVE PULMONARY DISEASE, U 11/26/2016 QUIN JONES MD Ot R05 COUGH 11/26/2016 QUIN JONES MD, Ot Z79.899 OTHER LABEL OPERATOR (CURRENT) DRUG THERAPY 12/26/2016 KAILA DO, HOLA [...] KAILA DO, HOLA K Ot Z79.899 OTHER LABEL OPERATOR (CURRENT) DRUG THERAPY 12/26/2016 KAILA DO, HOLA K Ot Z87.891 PERSONAL HISTORY OF NICOTINE DEPENDENCE 01/01/2017 ABELARDO AMANDA MD Ot 397. 0 TRICUSPID VALVE DISEASE 01/01/2017 ABELARDO AMANDA MD Ot 424. 0 MITRAL VALVE DISORDER 01/01/2017 ABELARDO AMANDA MD Ot 428. 0 CONGESTIVE HEART FAILURE NOS 01/01/2017 ABELARDO AMANDA MD Ot 428. 0 CONGESTIVE HEART FAILURE NOS 03/06/2017 QUIN JONES MD Ot I16.0 HYPERTENSIVE URGENCY 03/06/2017 QUIN JONES MD Ot I25.10 ATHSCL HEART DISEASE OF [place] CORONARY 03/06/2017 QUIN JONES MD, Ot J44.9 CHRONIC OBSTRUCTIVE PULMONARY DISEASE, U 03/06/2017 QUIN JONES MD Ot K59.00 CONSTIPATION, UNSPECIFIED 03/06/2017 QUIN JONES MD Ot R10.30 LOWER ABDOMINAL PAIN, UNSPECIFIED 03/06/2017 QUIN JONES MD Ot Z79.899 OTHER LABEL OPERATOR (CURRENT) DRUG THERAPY 03/06/2017 ABELARDO AMANDA MD Ot 397. 0 TRICUSPID VALVE DISEASE 03/06/2017 ABELARDO AMANDA MD Ot 424. 0 MITRAL VALVE DISORDER 03/06/2017 ABELARDO AMANDA MD Ot 428. 0 CONGESTIVE HEART FAILURE NOS 03/06/2017 ABELARDO AMANDA MD Ot 428. 0 CONGESTIVE HEART FAILURE NOS 03/07/2017 QUIN JONES MD Ot I16.0 HYPERTENSIVE URGENCY 03/07/2017 QUIN JONES MD, Ot I25.10 ATHSCL HEART DISEASE OF [place] CORONARY 03/07/2017 QUIN JONES MD, Ot J44.9 CHRONIC OBSTRUCTIVE PULMONARY DISEASE, U 03/07/2017 QUIN JONES MD, Ot K59.00 CONSTIPATION, UNSPECIFIED 03/07/2017 QUIN JOENS MD Ot R10.30 LOWER ABDOMINAL PAIN, UNSPECIFIED 03/07/2017 QUIN JONES MD, Ot Z79.899 OTHER SHELTER (CURRENT) DRUG THERAPY 06/18/2017 ABELARDO AMANDA MD Ot 397. 0 TRICUSPID VALVE DISEASE 06/18/2017 ABELARDO AMANDA MD Ot 424. 0 MITRAL VALVE DISORDER 06/18/2017 ABELARDO AMANDA MD Ot 428. 0 CONGESTIVE HEART FAILURE NOS 06/18/2017 ABELARDO AMANDA MD Ot 428. 0 CONGESTIVE HEART FAILURE NOS 06/18/2017 STAR ORTIZ Ot D64.9 ANEMIA, UNSPECIFIED 06/18/2017 STAR ORTIZ Ot F31.9 BIPOLAR DISORDER, UNSPECIFIED 06/18/2017 STAR ORTIZ Ot F41.9 ANXIETY DISORDER, UNSPECIFIED 06/18/2017 STAR ORTIZ Ot G40.909 EPILEPSY, UNSP, NOT INTRACTABLE, WITHOUT 06/18/2017 STAR ORTIZ Ot I 10 ESSENTIAL (PRIMARY) HYPERTENSION 06/18/2017 STAR ORTIZ Ot I25.10 ATHSCL HEART DISEASE OF [place] CORONARY 06/18/2017 STAR ORTIZ Ot I25.2 OLD [...] AND UTER 06/24/2017 ABELARDO AMANDA MD Ot 397. 0 TRICUSPID VALVE DISEASE 06/24/2017 ABELARDO AMANDA MD Ot 424. 0 MITRAL VALVE DISORDER 06/24/2017 ABELARDO AMANDA MD Ot 428. 0 CONGESTIVE HEART FAILURE NOS 06/24/2017 ABELARDO AMANDA MD Ot 428. 0 CONGESTIVE HEART FAILURE NOS 07/23/2017 ABELARDO AMANDA MD Ot 397. 0 TRICUSPID VALVE DISEASE 07/23/2017 ABELARDO AMANDA MD Ot 424. 0 MITRAL VALVE DISORDER 07/23/2017 ABELARDO AMANDA MD Ot 428. 0 CONGESTIVE HEART FAILURE NOS 07/23/2017 ABELARDO AMANDA MD Ot 428. 0 CONGESTIVE HEART FAILURE NOS 02/03/2018 ABELARDO AMANDA MD Ot 397. 0 TRICUSPID VALVE DISEASE 02/03/2018 ABELARDO AMANDA MD Ot 424. 0 MITRAL VALVE DISORDER 02/03/2018 ABELARDO AMANDA MD Ot 428. 0 CONGESTIVE HEART FAILURE NOS 02/03/2018 ABELARDO AMANDA MD Ot 428. 0 CONGESTIVE HEART FAILURE NOS 02/04/2018 MICHAEL BURRELL MD Ot B19. 20 UNSPECIFIED VIRAL 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 02/04/2018 MICHAEL BURRELL MD Ot F31. 9 BIPOLAR DISORDER, UNSPECIFIED 02/04/2018 MICHAEL BURRELL MD Ot F41. 9 ANXIETY DISORDER, UNSPECIFIED 02/04/2018 MICHAEL BURRELL MD Ot G40.909 EPILEPSY, UNSP, NOT INTRACTABLE, WITHOUT 02/04/2018 MICHAEL BURRELL MD Ot I10 ESSENTIAL (PRIMARY) HYPERTENSION 02/04/2018 MICHAEL BURRELL MD Ot I25. 10 ATHSCL HEART DISEASE OF [place] CORONARY 02/04/2018 MICHAEL BURRELL MD Ot I25. 2 OLD MYOCARDIAL INFARCTION 02/04/2018 MICHAEL BURRELL MD Ot I73. 9 PERIPHERAL VASCULAR DISEASE, UNSPECIFIED 02/04/2018 MICHAEL BURRELL MD Ot J43. 9 EMPHYSEMA, UNSPECIFIED 02/04/2018 MICHAEL BURRELL MD Ot K21. 9 GASTRO-ESOPHAGEAL REFLUX DISEASE WITHOUT 02/04/2018 MICHAEL BURRELL MD Ot R07. 89 OTHER CHEST PAIN 02/04/2018 MICHAEL BURRELL MD Ot R07. 9 CHEST PAIN, UNSPECIFIED 02/04/2018 MICHAEL BURRELL MD Ot R56. 9 UNSPECIFIED CONVULSIONS 02/04/2018 MICHAEL BURRELL MD Ot Z79. 51 SHELTER (CURRENT) USE OF INHALED STERO 02/04/2018 MICHAEL BURRELL MD Ot Z79. 52 SHELTER (CURRENT) USE OF SYSTEMIC STER 02/04/2018 MICHAEL BURRELL MD Ot Z82. 49 FAMILY HX OF ISCHEM HEART DIS AND OTH DI 02/04/2018 MICHAEL BURRELL MD Ot Z85. 41 PERSONAL HISTORY OF MALIGNANT NEOPLASM O 02/04/2018 MICHAEL BURRELL MD Ot Z87. 01 PERSONAL HISTORY OF PNEUMONIA (RECURRENT 02/04/2018 MICHAEL BURRELL MD Ot Z87. 19 PERSONAL HISTORY OF OTHER DISEASES OF TH 02/04/2018 MICHAEL BURRELL MD Ot Z87.440 PERSONAL HISTORY OF URINARY (TRACT) INFE 02/04/2018 MICHAEL BURRELL MD Ot Z87.448 PERSONAL HISTORY OF OTHER DISEASES OF UR 02/04/2018 MICHAEL BURRELL MD Ot Z87. 59 PERSONAL HISTORY OF COMP OF PREG, CHLDBR 02/04/2018 MICHAEL BURRELL MD Ot Z87.820 PERSONAL HISTORY OF TRAUMATIC BRAIN INJU 02/04/2018 MICHAEL BURRELL MD Ot Z88. 8 ALLERGY STATUS TO [facility] DRUG/MEDS/BIOL SUB 02/04/2018 MICHAEL BURRELL MD Ot Z90. 49 ACQUIRED ABSENCE OF OTHER SPECIFIED PART 02/04/2018 MICHAEL BURRELL MD Ot Z90.710 ACQUIRED ABSENCE OF BOTH CERVIX AND UTER 02/04/2018 MICHAEL BURRELL MD Ot Z90. 89 ACQUIRED ABSENCE OF OTHER ORGANS 02/05/2018 MICHAEL BURRELL MD Ot B19. 20 UNSPECIFIED VIRAL 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 02/05/2018 MICHAEL BURRELL MD Ot F31. 9 BIPOLAR DISORDER, UNSPECIFIED 02/05/2018 MICHAEL BURRELL MD Ot F41. 9 ANXIETY DISORDER, UNSPECIFIED 02/05/2018 MICHAEL BURRELL MD Ot G40.909 EPILEPSY, UNSP, NOT INTRACTABLE, WITHOUT 02/05/2018 MICHAEL BURRELL MD Ot I10 ESSENTIAL (PRIMARY) HYPERTENSION 02/05/2018 MICHAEL BURRELL MD Ot I25. 10 ATHSCL HEART DISEASE OF [place] CORONARY 02/05/2018 MICHAEL BURRELL MD Ot I25. 2 OLD MYOCARDIAL INFARCTION 02/05/2018 MICHAEL BURRELL MD Ot I73. 9 PERIPHERAL VASCULAR DISEASE, UNSPECIFIED 02/05/2018 MICHAEL BURRELL MD Ot J43. 9 EMPHYSEMA, UNSPECIFIED 02/05/2018 MICHAEL BURRELL MD Ot K21. 9 GASTRO-ESOPHAGEAL REFLUX DISEASE WITHOUT 02/05/2018 MICHAEL BURRELL MD Ot R07. 89 OTHER CHEST PAIN 02/05/2018 MICHAEL BURRELL MD Ot R07. 9 CHEST PAIN, UNSPECIFIED 02/05/2018 MICHAEL BURRELL MD Ot R56. 9 UNSPECIFIED CONVULSIONS 02/05/2018 MICHAEL BURRELL MD Ot Z79. 51 LABEL OPERATOR (CURRENT) USE OF INHALED STERO 02/05/2018 MICHAEL BURRELL MD Ot Z79. 52 LABEL OPERATOR (CURRENT) USE OF SYSTEMIC STER 02/05/2018 MICHAEL BURRELL MD Ot Z82. 49 FAMILY HX OF ISCHEM HEART DIS AND OTH DI 02/05/2018 MICHAEL BURRELL MD Ot Z85. 41 PERSONAL HISTORY OF MALIGNANT NEOPLASM O 02/05/2018 MICHAEL BURRELL MD Ot Z87. 01 PERSONAL HISTORY OF PNEUMONIA (RECURRENT 02/05/2018 MICHAEL BURRELL MD Ot Z87. 19 PERSONAL HISTORY OF OTHER DISEASES OF TH 02/05/2018 MICHAEL BURRELL MD Ot Z87.440 PERSONAL HISTORY OF URINARY (TRACT) INFE 02/05/2018 MICHAEL BURRELL MD Ot Z87.448 PERSONAL HISTORY OF OTHER DISEASES OF UR 02/05/2018 MICHAEL BURRELL MD Ot Z87. 59 PERSONAL HISTORY OF COMP OF PREG, CHLDBR 02/05/2018 MICHEAL BURRELL MD Ot Z87.820 PERSONAL HISTORY OF TRAUMATIC BRAIN INJU 02/05/2018 MICHAEL BURRELL MD Ot Z88. 8 ALLERGY STATUS TO [facility] DRUG/MEDS/BIOL SUB 02/05/2018 MICHAEL BURRELL MD Ot Z90. 49 ACQUIRED ABSENCE OF OTHER SPECIFIED PART 02/05/2018 MICHAEL BURRELL MD Ot Z90.710 ACQUIRED ABSENCE OF BOTH CERVIX AND UTER 02/05/2018 MICHAEL BURRELL MD Ot Z90. 89 ACQUIRED ABSENCE OF OTHER ORGANS 02/24/2018 GAVI DEGROOT DO Ot G40.90 9 EPILEPSY, UNSP, NOT INTRACTABLE, WITHOUT 02/24/2018 GAVI DEGROOT DO Ot G89.29 OTHER CHRONIC PAIN 02/24/2018 GAVI DEGROOT DO Ot I12.9 HYPERTENSIVE CHRONIC KIDNEY DISEASE W ST 02/24/2018 GAVI DEGROOT DO Ot I25.10 ATHSCL HEART DISEASE OF [place] CORONARY 02/24/2018 GAVI DEGROOT DO Ot I27.20 PULMONARY HYPERTENSION, UNSPECIFIED 02/24/2018 GAVI DEGROOT DO Ot I34.0 NONRHEUMATIC MITRAL (VALVE) INSUFFICIENC 02/24/2018 GAVI DEGROOT DO Ot I42.0 DILATED CARDIOMYOPATHY 02/24/2018 GAVI DEGROOT DO Ot I50.21 ACUTE SYSTOLIC (CONGESTIVE) HEART FAILUR 02/24/2018 GAVI DEGROOT DO Ot N18.9 CHRONIC KIDNEY DISEASE, UNSPECIFIED 02/24/2018 GAVI DEGROOT DO Ot Z79.89 9 OTHER LABEL OPERATOR (CURRENT) DRUG THERAPY 02/24/2018 GAVI DEGROOT DO Ot G40.90 9 EPILEPSY, UNSP, NOT INTRACTABLE, WITHOUT 02/24/2018 AGUSTÍN DEGROOT DOA Alec Ot G89.29 OTHER CHRONIC PAIN 02/24/2018 GAVI DEGROOT DO Ot I12.9 HYPERTENSIVE CHRONIC KIDNEY DISEASE W ST 02/24/2018 GAVI DEGROOT DO Ot I25.10 ATHSCL HEART DISEASE OF [place] CORONARY 02/24/2018 GAVI DEGROOT DO Ot I27.20 PULMONARY HYPERTENSION, UNSPECIFIED 02/24/2018 GAVI DEGROOT DO Ot I34.0 NONRHEUMATIC MITRAL (VALVE) INSUFFICIENC 02/24/2018 GAVI DEGROOT DO Ot I42.0 DILATED CARDIOMYOPATHY 02/24/2018 GAVI DEGROOT DO Ot I50.21 ACUTE SYSTOLIC (CONGESTIVE) HEART FAILUR 02/24/2018 GAVI DEGROOT DO Ot N18.9 CHRONIC KIDNEY DISEASE, UNSPECIFIED 02/24/2018 GAVI DEGROOT DO Ot Z79.89 9 OTHER SHELTER (CURRENT) DRUG THERAPY 05/15/2018 Ot A41.9 SEPS IS, UNSPECIFIED ORGANISM 05/15/2018 Ot B19.20 UNS PECIFIED VIRAL 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 05/15/2018 Ot E87.1 HYPO -OSMOLALITY AND HYPONATREMIA 05/15/2018 Ot F15.10 OTH ER STIMULANT ABUSE, UNCOMPLICATED 05/15/2018 Ot F41.9 ANXI ETY DISORDER, UNSPECIFIED 05/15/2018 Ot F43.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, UNSPECIFIED 05/15/2018 Ot N39.0 URIN JONAS TRACT INFECTION, SITE NOT SPECIF 05/15/2018 Ot R19.7 DIAR RACHEL, UNSPECIFIED 05/15/2018 Ot T68.XXXA H YPOTHERMIA, INITIAL ENCOUNTER 05/15/2018 Ot W93.8XXA E XPOSURE TO OT EXCESSIVE COLD OF MAN-MA 05/15/2018 Ot Z99.81 DEP ENDENCE ON SUPPLEMENTAL OXYGEN 07/21/2018 Paolo PERKINS MD Ot N18 .9 CHRONIC KIDNEY DISEASE, UNSPECIFIED 07/29/2018 Paolo PERKINS MD Ot 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 07/29/2018 Paolo PERKINS MD Ot I27.20 PULMONARY HYPERTENSION, UNSPECIFIED 07/29/2018 Paolo PERKINS MD Ot I42 .8 OTHER CARDIOMYOPATHIES 08/05/2018 Paolo PERKINS MD Ot 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 08/05/2018 Paolo PERKINS MD Ot Z11 .2 ENCOUNTER FOR SCREENING FOR OTHER BACTER 08/05/2018 Paolo PERKINS MD Ot 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 08/05/2018 Paolo PERKINS MD Ot Z11 .2 ENCOUNTER FOR SCREENING FOR OTHER BACTER 08/07/2018 Paolo PERKINS MD Ot 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 08/07/2018 Paolo PERKINS MD Ot Z11 .2 ENCOUNTER FOR SCREENING FOR OTHER BACTER 08/09/2018 Paolo PERKINS MD Ot 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 08/09/2018 Paolo PERKINS MD Ot Z11 .2 ENCOUNTER FOR SCREENING FOR OTHER BACTER 08/17/2018 Paolo PERKINS MD Ot 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 08/17/2018 Paolo PERKINS MD Ot Z11 .2 ENCOUNTER FOR SCREENING FOR OTHER BACTER 08/25/2018 Paolo PERKINS MD Ot I34 .0 NONRHEUMATIC MITRAL (VALVE) INSUFFICIENC 08/26/2018 Paolo PERKINS MD Ot I34 .0 NONRHEUMATIC MITRAL (VALVE) INSUFFICIENC 08/31/2018 Paolo PERKINS MD Ot 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 08/31/2018 Paolo PERKINS MD Ot Z11 .2 ENCOUNTER FOR SCREENING FOR OTHER BACTER 09/01/2018 Paolo PERKINS MD Ot N18 .9 CHRONIC KIDNEY DISEASE, UNSPECIFIED 09/10/2018 NEERAJ VILLA APRN Ot B19.20 UNSPECIFIED VIRAL 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 09/10/2018 NEERAJ VILLA APRN Ot D64 .9 ANEMIA, UNSPECIFIED 09/10/2018 NEERAJ VILLA APRN Ot F31 .9 BIPOLAR DISORDER, UNSPECIFIED 09/10/2018 NEERAJ VILLA APRN Ot F41 .9 ANXIETY DISORDER, UNSPECIFIED 09/10/2018 NEERAJ VILLA APRN Ot G40.909 EPILEPSY, UNSP, NOT INTRACTABLE, WITHOUT 09/10/2018 NEERAJ VILLA APRN Ot I10 ESSENTIAL (PRIMARY) HYPERTENSION 09/10/2018 NEERAJ VILLA APRN Ot J18 .9 PNEUMONIA, UNSPECIFIED ORGANISM 09/10/2018 NEERAJ VILLA APRN Ot J44 .9 CHRONIC OBSTRUCTIVE PULMONARY DISEASE, U 09/10/2018 NEERAJ VILLA APRN Ot R56 .9 UNSPECIFIED CONVULSIONS 09/10/2018 NEERAJ VILLA APRN Ot Z77.22 CNTCT W AND EXPSR TO ENVIRON TOBACCO SMO 09/10/2018 NEERAJ VILLA APRN Ot Z79.51 SHELTER (CURRENT) USE OF INHALED STERO 09/10/2018 NEERAJ VILLA APRN Ot Z79.52 SHELTER (CURRENT) USE OF SYSTEMIC STER 09/10/2018 NEERAJ VILLA APRN Ot Z82.49 FAMILY HX OF ISCHEM HEART DIS AND OTH DI 09/10/2018 NEERAJ VILLA APRN Ot Z85.41 PERSONAL HISTORY OF MALIGNANT NEOPLASM O 09/10/2018 NEEARJ VILLA APRN Ot Z86.73 PRSNL HX OF [...] BRAIN INJU 09/10/2018 NEERAJ VILLA APRN Ot Z88 .8 ALLERGY STATUS TO [facility] DRUG/MEDS/BIOL SUB 09/10/2018 NEERAJ VILLA APRN Ot Z90.710 ACQUIRED ABSENCE OF BOTH CERVIX AND UTER 09/10/2018 NEERAJ VILLA APRN Ot Z98.890 OTHER SPECIFIED POSTPROCEDURAL STATES 09/14/2018 NEERAJ VILLA APRN Ot B19.20 UNSPECIFIED VIRAL 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 09/14/2018 NEERAJ VILLA APRN Ot D64 .9 ANEMIA, UNSPECIFIED 09/14/2018 NEERAJ VILLA APRN Ot F31 .9 BIPOLAR DISORDER, UNSPECIFIED 09/14/2018 NEERAJ VILLA APRN Ot F41 .9 ANXIETY DISORDER, UNSPECIFIED 09/14/2018 NEERAJ VILLA APRN Ot G40.909 EPILEPSY, UNSP, NOT INTRACTABLE, WITHOUT 09/14/2018 NEERAJ VILLA APRN Ot I10 ESSENTIAL (PRIMARY) HYPERTENSION 09/14/2018 NEERAJ VILLA APRN Ot J18 .9 PNEUMONIA, UNSPECIFIED ORGANISM 09/14/2018 NEERAJ VILLA APRN Ot J44 .9 CHRONIC OBSTRUCTIVE PULMONARY DISEASE, U 09/14/2018 NEERAJ VILLA APRN Ot R56 .9 UNSPECIFIED CONVULSIONS 09/14/2018 NEERAJ VILLA APRN Ot Z77.22 CNTCT W AND EXPSR TO ENVIRON TOBACCO SMO 09/14/2018 NEERAJ VILLA APRN Ot Z79.51 SHELTER (CURRENT) USE OF INHALED STERO 09/14/2018 NEERAJ VILLA APRN Ot Z79.52 SHELTER (CURRENT) USE OF SYSTEMIC STER 09/14/2018 NEERAJ [...] BRAIN INJU 09/14/2018 NEERAJ VILLA APRN Ot Z88 .8 ALLERGY STATUS TO OT DRUG/MEDS/BIOL SUB 09/14/2018 NEERAJ VILLA APRN Ot Z90.710 ACQUIRED ABSENCE OF BOTH CERVIX AND UTER 09/14/2018 NEERAJ VILLA APRN Ot Z98.890 OTHER SPECIFIED POSTPROCEDURAL STATES 09/18/2018 GREGORIO GONZALES, Paolo GARCIA Ot 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 09/18/2018 GREGORIO GONZALES, Paolo GARCIA Ot Z11 .2 ENCOUNTER FOR SCREENING FOR OTHER BACTER 09/29/2018 NEERAJ VILLA APRN Ot B19.20 UNSPECIFIED VIRAL 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 09/29/2018 NEERAJ VILLA APRN Ot D64 .9 ANEMIA, UNSPECIFIED 09/29/2018 NEERAJ VILLA APRN Ot F31 .9 BIPOLAR DISORDER, UNSPECIFIED 09/29/2018 NEERAJ VILLA APRN Ot F41 .9 ANXIETY DISORDER, UNSPECIFIED 09/29/2018 NEERAJ VILLA APRN Ot G40.909 EPILEPSY, UNSP, NOT INTRACTABLE, WITHOUT 09/29/2018 NEERAJ VILLA APRN Ot I10 ESSENTIAL (PRIMARY) HYPERTENSION 09/29/2018 NEERAJ VILLA APRN Ot J18 .9 PNEUMONIA, UNSPECIFIED ORGANISM 09/29/2018 NEERAJ VILLA APRN Ot J44 .9 CHRONIC OBSTRUCTIVE PULMONARY DISEASE, U 09/29/2018 NEERAJ VILLA APRN Ot R56 .9 UNSPECIFIED CONVULSIONS 09/29/2018 NEERAJ VILLA APRN Ot Z77.22 CNTCT W AND EXPSR TO ENVIRON TOBACCO SMO 09/29/2018 NEERAJ VILLA APRN Ot Z79.51 LABEL OPERATOR (CURRENT) USE OF INHALED STERO 09/29/2018 NEERAJ VILLA APRN Ot Z79.52 LABEL OPERATOR (CURRENT) USE OF SYSTEMIC STER 09/29/2018 NEERAJ [...] BRAIN INJU 09/29/2018 NEERAJ VILLA APRN Ot Z88 .8 ALLERGY STATUS TO [facility] DRUG/MEDS/BIOL SUB 09/29/2018 NEERAJ VILLA APRN Ot Z90.710 ACQUIRED ABSENCE OF BOTH CERVIX AND UTER 09/29/2018 NEERAJ VILLA APRN Ot Z98.890 OTHER SPECIFIED POSTPROCEDURAL STATES 09/30/2018 Paolo PERKINS MD Ot I34 .0 NONRHEUMATIC MITRAL (VALVE) INSUFFICIENC 10/19/2018 Paolo PERKINS MD Ot 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 10/19/2018 Paolo PERKINS MD Ot I27.20 PULMONARY HYPERTENSION, UNSPECIFIED 10/19/2018 Paolo PERKINS MD Ot I42 .8 OTHER CARDIOMYOPATHIES 11/10/2018 Paolo PERKINS MD Ot 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 11/10/2018 Paolo PERKINS MD Ot Z11 .2 ENCOUNTER FOR SCREENING FOR OTHER BACTER 05/04/2019 Paool PERKINS MD Ot 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 05/04/2019 Paolo PERKINS MD, Ot I27.20 PULMONARY HYPERTENSION, UNSPECIFIED 05/04/2019 Paolo PERKINS MD Ot I42 .8 OTHER CARDIOMYOPATHIES 05/04/2019 Paolo PERKINS MD Ot N18 .9 CHRONIC KIDNEY DISEASE, UNSPECIFIED 05/04/2019 Paolo PERKINS MD Ot 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 05/04/2019 Paolo PERKINS MD, Ot Z11 .2 ENCOUNTER FOR SCREENING FOR OTHER BACTER 05/04/2019 Paolo PERKINS MD Ot I34 .0 NONRHEUMATIC MITRAL (VALVE) INSUFFICIENC 05/04/2019 QUIN JONES MD Ot F31.9 BIPOLAR DISORDER, UNSPECIFIED 05/04/2019 QUIN JONES MD Ot F41.9 ANXIETY DISORDER, UNSPECIFIED 05/04/2019 QUIN JONES MD Ot G40.909 EPILEPSY, UNSP, NOT INTRACTABLE, WITHOUT 05/04/2019 QUIN JONES MD Ot I10 ESSENTIAL (PRIMARY) HYPERTENSION 05/04/2019 QUIN JONES MD Ot J44.9 CHRONIC OBSTRUCTIVE PULMONARY DISEASE, U 05/04/2019 QUIN JONES MD Ot K21.9 GASTRO-ESOPHAGEAL REFLUX DISEASE WITHOUT 05/04/2019 QUIN JONES MD Ot R07.9 CHEST PAIN, UNSPECIFIED 05/04/2019 QUIN JONES MD Ot S81.802A UNSPECIFIED OPEN WOUND, LEFT LOWER LEG, 05/04/2019 QUIN JONES MD Ot W22.8XXA STRIKING AGAINST OR STRUCK BY OTHER OBJE 05/04/2019 QUIN JONES MD Ot Z79.51 SHELTER (CURRENT) USE OF INHALED STERO 05/04/2019 QUIN JONES MD Ot Z82.49 FAMILY HX OF ISCHEM HEART DIS AND OTH DI 05/04/2019 QUIN JONES MD, Ot Z86.73 PRSNL HX OF TIA (TIA), AND CEREB INFRC W 05/04/2019 QUIN JONES MD, Ot Z87.440 PERSONAL HISTORY OF URINARY (TRACT) INFE 05/04/2019 QUIN JONES MD, Ot Z87.442 PERSONAL HISTORY OF URINARY CALCULI 05/04/2019 QUIN JONES MD, Ot Z87.891 PERSONAL HISTORY OF NICOTINE DEPENDENCE 05/04/2019 QUIN JONES MD, Ot Z88.8 ALLERGY STATUS TO [facility] DRUG/MEDS/BIOL SUB 05/04/2019 QUIN JONES MD, Ot Z90.710 ACQUIRED ABSENCE OF BOTH CERVIX AND UTER 05/04/2019 QUIN JONES MD, Ot Z95.9 PRESENCE OF CARDIAC AND VASCULAR IMPLANT 05/04/2019 QUIN JONES MD, Ot Z98.890 OTHER SPECIFIED POSTPROCEDURAL STATES 05/04/2019 QUIN JONES MD, Ot Z99.81 DEPENDENCE ON SUPPLEMENTAL OXYGEN 05/10/2019 QUIN JONES MD Ot F31.9 BIPOLAR DISORDER, UNSPECIFIED 05/10/2019 QUIN JONES MD, Ot F41.9 ANXIETY DISORDER, UNSPECIFIED 05/10/2019 QUIN JONES MD, Ot G40.909 EPILEPSY, UNSP, NOT INTRACTABLE, WITHOUT 05/10/2019 QUIN JONES MD Ot I10 ESSENTIAL (PRIMARY) HYPERTENSION 05/10/2019 QUIN JONES MD, Ot J44.9 CHRONIC OBSTRUCTIVE PULMONARY DISEASE, U 05/10/2019 QUIN JONES MD, Ot K21.9 GASTRO-ESOPHAGEAL REFLUX DISEASE WITHOUT 05/10/2019 QUIN JONES MD Ot R07.9 CHEST PAIN, UNSPECIFIED 05/10/2019 QUIN JONES MD Ot S81.802A UNSPECIFIED OPEN WOUND, LEFT LOWER LEG, 05/10/2019 QUIN JONES MD, Ot W22.8XXA STRIKING AGAINST OR STRUCK BY OTHER OBJE 05/10/2019 QUIN JONES MD, Ot Z79.51 LABEL OPERATOR (CURRENT) USE OF INHALED STERO 05/10/2019 QUIN JONES MD, Ot Z82.49 FAMILY HX OF ISCHEM HEART DIS AND OTH DI 05/10/2019 QUIN JONES MD Ot Z86.73 PRSNL HX OF TIA (TIA), AND CEREB INFRC W 05/10/2019 QUIN JONES MD Ot Z87.440 PERSONAL HISTORY OF URINARY (TRACT) INFE 05/10/2019 QUIN JONES MD Ot Z87.442 PERSONAL HISTORY OF URINARY CALCULI 05/10/2019 QUIN JONES MD Ot Z87.891 PERSONAL HISTORY OF NICOTINE DEPENDENCE 05/10/2019 QUIN JONES MD Ot Z88.8 ALLERGY STATUS TO [facility] DRUG/MEDS/BIOL SUB 05/10/2019 QUIN JONES MD Ot Z90.710 ACQUIRED ABSENCE OF BOTH CERVIX AND UTER 05/10/2019 QUIN JONES MD Ot Z95.9 PRESENCE OF CARDIAC AND VASCULAR IMPLANT 05/10/2019 QUIN JONES MD Ot Z98.890 OTHER SPECIFIED POSTPROCEDURAL STATES 05/10/2019 QUIN JONES MD Ot Z99.81 DEPENDENCE ON SUPPLEMENTAL OXYGEN 07/05/2019 HÉCTOR VALDOVINOS DOI Ot B19.20 UNSPECIFIED VIRAL 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 07/05/2019 HÉCTOR VALDOVINOS DOI Ot B96.1 KLEBSIELLA PNEUMONIAE THE CAUSE OF DI 07/05/2019 ARUNA LANGE RAJAN Ot D64.9 ANEMIA, UNSPECIFIED 07/05/2019 ARUNA LANGE RAJAN Ot E87.2 ACIDOSIS 07/05/2019 HÉCTOR VALDOVINOS DOI Ot E87.6 HYPOKALEMIA 07/05/2019 ARUNA LANGE RAJAN Ot F15.90 OTHER STIMULANT USE, UNSPECIFIED, UNCOMP 07/05/2019 ARUNA LANGE RAJAN Ot 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, CIGARETTES, UNCOMPL 07/05/2019 ARUNA LANGE RAJAN Ot F31.9 BIPOLAR DISORDER, UNSPECIFIED 07/05/2019 ARUNA LANGE RAJAN Ot F41.9 ANXIETY DISORDER, UNSPECIFIED 07/05/2019 ARUNA LANGE RAJAN Ot G40.90 9 EPILEPSY, UNSP, NOT INTRACTABLE, WITHOUT 07/05/2019 ARUNA LANGE RAJAN Ot I10 ESSENTIAL (PRIMARY) HYPERTENSION 07/05/2019 ARUNA LANGE RAJAN Ot I38 ENDOCARDITIS, VALVE UNSPECIFIED 07/05/2019 ARUNA LANGE RAJAN Ot 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 07/05/2019 HÉCTOR VALDOVINOS DOI Ot I95.9 HYPOTENSION, UNSPECIFIED 07/05/2019 ARUNA LANGE RAJAN Ot J44.9 CHRONIC OBSTRUCTIVE PULMONARY DISEASE, U 07/05/2019 ARUNA LANGE RAJAN Ot J96.00 ACUTE RESPIRATORY FAILURE, UNSP W HYPOXI 07/05/2019 ARUNA LANGE RAJAN Ot K21.9 GASTRO-ESOPHAGEAL REFLUX DISEASE WITHOUT 07/05/2019 ARUNA LANGE RAJAN Ot M19.91 PRIMARY OSTEOARTHRITIS, UNSPECIFIED SITE 07/05/2019 ARUNA LANGE RAJAN Ot N39.0 URINARY TRACT INFECTION, SITE NOT SPECIF 07/05/2019 HÉCTOR VALDOVINOS DOI Ot R41.82 ALTERED MENTAL STATUS, UNSPECIFIED 07/05/[address] RAJAN Ot T43.62 1A POISONING BY AMPHETAMINES, ACCIDENTAL (U 07/05/2019 ARUNA LANGE RAJAN Ot Z22.32 2 CARRIER OR SUSPECTED CARRIER OF METHICIL 07/05/2019 ARUNA LANGE RAJAN Ot Z87.82 0 PERSONAL HISTORY OF TRAUMATIC BRAIN INJU 07/05/2019 ARUNA LANGE RAJAN Ot Z90.71 0 ACQUIRED ABSENCE OF BOTH CERVIX AND UTER 07/05/2019 ARUNA LANGE RAJAN Ot Z90.72 2 ACQUIRED ABSENCE OF OVARIES, BILATERAL 07/10/2019 ARUNA LANGE RAJAN Ot D64.9 ANEMIA, UNSPECIFIED 07/10/2019 ARUNA LANGE RAJAN Ot E86.0 DEHYDRATION 07/10/2019 ARUNA LANGE RAJAN Ot F15.10 OTHER STIMULANT ABUSE, UNCOMPLICATED 07/10/2019 ARUNA LANGE RAJAN Ot 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, CIGARETTES, UNCOMPL 07/10/2019 ARUNA LANGE RAJAN Ot F31.9 BIPOLAR DISORDER, UNSPECIFIED 07/10/2019 ARUNA LANGE RAJAN Ot F41.9 ANXIETY DISORDER, UNSPECIFIED 07/10/2019 ARUNA LANGE RAJAN Ot G40.90 9 EPILEPSY, UNSP, NOT INTRACTABLE, WITHOUT 07/10/2019 ARUNA LANGE RAJAN Ot I10 ESSENTIAL (PRIMARY) HYPERTENSION 07/10/2019 ARUNA LANGE RAJAN Ot I16.0 HYPERTENSIVE URGENCY 07/10/2019 ARUNA LANGE RAJAN Ot I21.A1 MYOCARDIAL INFARCTION TYPE 2 07/10/2019 ARUNA LANGE RAJAN Ot I25.10 ATHSCL HEART DISEASE OF [place] CORONARY 07/10/2019 RAJAN VALDOVINOS DO Ot I38 ENDOCARDITIS, VALVE UNSPECIFIED 07/10/2019 ARUNA LANGE RAJAN Ot J44.9 CHRONIC OBSTRUCTIVE PULMONARY DISEASE, U 07/10/2019 ARUNA LANGE RAJAN Ot K21.9 GASTRO-ESOPHAGEAL REFLUX DISEASE WITHOUT 07/10/2019 ARUNA LANGE RAJAN Ot K56.7 ILEUS, UNSPECIFIED 07/10/2019 ARUNA LANGE RAAJN Ot N17.9 ACUTE KIDNEY FAILURE, UNSPECIFIED 07/10/2019 ARUNA LANGE RAJAN Ot R07.9 CHEST PAIN, UNSPECIFIED 07/10/2019 ARUNA LANGE RAJAN Ot R78.89 FINDING OF OTH SUBSTANCES, NOT NORMALLY 07/10/2019 RAJAN VALDOVINOS DO Ot Z90.71 0 ACQUIRED ABSENCE OF BOTH CERVIX AND UTER 07/10/2019 RAJAN VALDOVINOS DO Ot Z90.72 2 ACQUIRED ABSENCE OF OVARIES, BILATERAL 08/17/2019 KWAKU GAONA MD Ot B19.2 0 UNSPECIFIED VIRAL 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 08/17/2019 KWAKU GAONA MD Ot E86.0 DEHYDRATION 08/17/2019 KWAKU GAONA MD, Ot 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, UNCOMPLICATED 08/17/2019 KWAKU GAONA MD Ot F17.2 10 NICOTINE DEPENDENCE, CIGARETTES, UNCOMPL 08/17/2019 KWAKU GAONA MD Ot F31.9 BIPOLAR DISORDER, UNSPECIFIED 08/17/2019 KWAKU GAONA MD Ot F41.9 ANXIETY DISORDER, UNSPECIFIED 08/17/2019 KWAKU GAONA MD Ot G40.9 09 EPILEPSY, UNSP, NOT INTRACTABLE, WITHOUT 08/17/2019 KWAKU GAONA MD Ot I16.0 HYPERTENSIVE URGENCY 08/17/2019 KWAKU GAONA MD Ot I38 ENDOCARDITIS, VALVE UNSPECIFIED 08/17/2019 KWAKU GAONA MD Ot 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 08/17/2019 KWAKU GAONA MD Ot 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 08/17/2019 GAULT MD, KWAKU R Ot I95.9 HYPOTENSION, UNSPECIFIED 08/17/2019 KWAKU GAONA MD Ot J44.9 CHRONIC OBSTRUCTIVE PULMONARY DISEASE, U 08/17/2019 KWAKU GAONA MD Ot K21.9 GASTRO-ESOPHAGEAL REFLUX DISEASE WITHOUT 08/17/2019 KWAKU GAONA MD Ot M19.9 1 PRIMARY OSTEOARTHRITIS, UNSPECIFIED SITE 08/17/2019 KWAKU GAONA MD Ot M54.9 DORSALGIA, UNSPECIFIED 08/17/2019 KWAKU GAONA MD Ot N17.9 ACUTE KIDNEY FAILURE, UNSPECIFIED 08/17/2019 KWAKU GAONA MD Ot R26.8 1 UNSTEADINESS ON FEET 08/17/2019 KWAKU GAONA MD Ot R41.8 2 ALTERED MENTAL STATUS, UNSPECIFIED 08/17/2019 KWAKU GAONA MD Ot R79.8 9 OTHER SPECIFIED ABNORMAL FINDINGS OF BLO 08/17/2019 KWAKU GAONA MD Ot Z85.4 1 PERSONAL HISTORY OF MALIGNANT NEOPLASM O 08/17/2019 KWAKU GAONA MD Ot B19.2 0 UNSPECIFIED VIRAL 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 08/17/2019 KWAKU GAONA MD Ot E86.0 DEHYDRATION 08/17/2019 KWAKU GAONA MD Ot 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 08/17/2019 KWAKU GAONA MD Ot 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 08/17/2019 KWAKU GAONA MD Ot I95.9 HYPOTENSION, UNSPECIFIED 08/17/2019 KWAKU GAONA MD Ot J44.9 CHRONIC OBSTRUCTIVE PULMONARY DISEASE, U 08/17/2019 KWAKU GAONA MD, Ot J90 PLEURAL EFFUSION, NOT ELSEWHERE CLASSIFI 08/17/2019 KWAKU GAONA MD Ot K21.9 GASTRO-ESOPHAGEAL REFLUX DISEASE WITHOUT 08/17/2019 KWAKU GAONA MD Ot M19.9 1 PRIMARY OSTEOARTHRITIS, UNSPECIFIED SITE 08/17/2019 KWAKU GAONA MD Ot M54.9 DORSALGIA, UNSPECIFIED 08/17/2019 KWAKU GAONA MD Ot N17.9 ACUTE KIDNEY FAILURE, UNSPECIFIED 08/17/2019 KWAKU GAONA MD Ot N18.9 CHRONIC KIDNEY DISEASE, UNSPECIFIED 08/17/2019 KWAKU GAONA MD Ot R26.8 1 UNSTEADINESS ON FEET 08/17/2019 KWAKU GAONA MD Ot R41.8 2 ALTERED MENTAL STATUS, UNSPECIFIED 08/17/2019 KWAKU GAONA MD Ot R79.8 9 OTHER SPECIFIED ABNORMAL FINDINGS OF BLO 08/17/2019 KWAKU GAONA MD Ot Z85.4 1 PERSONAL HISTORY OF MALIGNANT NEOPLASM O 08/17/2019 KWAKU GAONA MD Ot Z91.1 9 PATIENT'S NONCOMPLIANCE W [facility] MEDICAL TR 08/27/2019 MATTHEW DAVID MD Ot B19.20 UNSPECIFIED VIRAL 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 08/27/2019 MATTHEW DAVID MD Ot D63 .8 ANEMIA IN OTHER CHRONIC DISEASES CLASSIF 08/27/2019 MATTHEW DAVID MD Ot E11.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 08/27/2019 MATTHEW DAVID MD Ot E87 .2 ACIDOSIS 08/27/2019 MATTHEW DAVID MD Ot E87 .5 HYPERKALEMIA 08/27/2019 MATTHEW DAVID MD Ot F15.10 OTHER STIMULANT ABUSE, UNCOMPLICATED 08/27/2019 MATTHEW DAVID MD Ot F17.210 NICOTINE DEPENDENCE, CIGARETTES, UNCOMPL 08/27/2019 MATTHEW DAVID MD Ot F31 .9 BIPOLAR DISORDER, UNSPECIFIED 08/27/2019 MATTHEW DAVID MD, Ot F41 .9 ANXIETY DISORDER, UNSPECIFIED 08/27/2019 MATTHEW DAVID MD, Ot G40.909 EPILEPSY, UNSP, NOT INTRACTABLE, WITHOUT 08/27/2019 MATTHEW DAVID MD Ot I13 .0 HYP HRT CHR KD[place] DIS W HRT FAIL AND ST 08/27/2019 MATTHEW DAVID MD, Ot I25.10 ATHSCL HEART DISEASE OF [place] CORONARY 08/27/2019 MATTHEW DAVID MD, Ot I25 .2 OLD MYOCARDIAL INFARCTION 08/27/2019 MATTHEW DAVID MD, Ot I34 .0 NONRHEUMATIC MITRAL (VALVE) INSUFFICIENC 08/27/2019 MATTHEW DAVID MD, Ot I42 .8 OTHER CARDIOMYOPATHIES 08/27/2019 MATTHEW DAVID MD, Ot I50 .9 HEART FAILURE, UNSPECIFIED 08/27/2019 MATTHEW DAVID MD Ot 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 INFRC AFFECT 08/27/2019 MATTHEW DAVID MD Ot I95 .9 HYPOTENSION, UNSPECIFIED 08/27/2019 MATTHEW DAVID MD, Ot J18 .9 PNEUMONIA, UNSPECIFIED ORGANISM 08/27/2019 MATTHEW DAVID MD, Ot J44 .9 CHRONIC OBSTRUCTIVE PULMONARY DISEASE, U 08/27/2019 MATTHEW DAVID MD, Ot J96.21 ACUTE AND CHRONIC RESPIRATORY FAILURE [place] 08/27/2019 MATTHEW DAVID MD Ot K21 .9 GASTRO-ESOPHAGEAL REFLUX DISEASE WITHOUT 08/27/2019 MATTHEW DAVID MD Ot N18 .9 CHRONIC KIDNEY DISEASE, UNSPECIFIED 08/27/2019 MATTHEW DAVID MD Ot N32.81 OVERACTIVE BLADDER 08/27/2019 MATTHEW DAVID MD, Ot R41.82 ALTERED MENTAL STATUS, UNSPECIFIED 08/27/2019 MATTHEW DAVID MD Ot R79.89 OTHER SPECIFIED ABNORMAL FINDINGS OF BLO 08/27/2019 MATTHEW DAVID MD, Ot Z79.899 OTHER SHELTER (CURRENT) DRUG THERAPY 08/27/2019 MATTHEW DAVID MD, Ot Z87.820 PERSONAL HISTORY OF TRAUMATIC BRAIN INJU 08/27/2019 MATTHEW DAVID MD, Ot Z91.19 PATIENT'S NONCOMPLIANCE W OT MEDICAL TR 08/27/2019 MATTHEW DAVID MD, Ot Z99.81 DEPENDENCE ON SUPPLEMENTAL OXYGEN 08/28/2019 MATTHEW DAVID MD, Ot B19.20 UNSPECIFIED VIRAL 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 08/28/2019 MATTHEW DAVID MD, Ot D63 .8 ANEMIA IN OTHER CHRONIC DISEASES CLASSIF 08/28/2019 MATTHEW DAVID MD Ot E11.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 08/28/2019 MATTHEW DAVID MD Ot E87 .2 ACIDOSIS 08/28/2019 MATTHEW DAVID MD, Ot E87 .5 HYPERKALEMIA 08/28/2019 MATTHEW DAVID MD, Ot F15.10 OTHER STIMULANT ABUSE, UNCOMPLICATED 08/28/2019 MATTHEW DAVID MD, Ot F17.210 NICOTINE DEPENDENCE, CIGARETTES, UNCOMPL 08/28/2019 MATTHEW DAVID MD, Ot F31 .9 BIPOLAR DISORDER, UNSPECIFIED 08/28/2019 MATTHEW DAVID MD, Ot F41 .9 ANXIETY DISORDER, UNSPECIFIED 08/28/2019 MATTHEW DAVID MD, Ot G40.909 EPILEPSY, UNSP, NOT INTRACTABLE, WITHOUT 08/28/2019 MATTHEW DAVID MD Ot I13 .0 HYP HRT CHR KDNY DIS W HRT FAIL AND ST 08/28/2019 MATHTEW DAVID MD Ot I25.10 ATHSCL HEART DISEASE OF [place] CORONARY 08/28/2019 MATTHEW DAVID MD Ot I25 .2 OLD MYOCARDIAL INFARCTION 08/28/2019 MATTHEW DAVID MD Ot I34 .0 NONRHEUMATIC MITRAL (VALVE) INSUFFICIENC 08/28/2019 MATTHEW DAVID MD Ot I42 .8 OTHER CARDIOMYOPATHIES 08/28/2019 MATTHEW DAVID MD, Ot I50 .9 HEART FAILURE, UNSPECIFIED 08/28/2019 MATTHEW DAVID MD Ot 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 INFRC AFFECT 08/28/2019 MATTHEW DAVID MD Ot I95 .9 HYPOTENSION, UNSPECIFIED 08/28/2019 MATTHEW DAVID MD, Ot J18 .9 PNEUMONIA, UNSPECIFIED ORGANISM 08/28/2019 MATTHEW DAVID MD, Ot J44 .9 CHRONIC OBSTRUCTIVE PULMONARY DISEASE, U 08/28/2019 MATTHEW DAVID MD, Ot J96.21 ACUTE AND CHRONIC RESPIRATORY FAILURE [place] 08/28/2019 MATTHEW DVAID MD, Ot K21 .9 GASTRO-ESOPHAGEAL REFLUX DISEASE WITHOUT 08/28/2019 MATTHEW DAVID MD, Ot N18 .9 CHRONIC KIDNEY DISEASE, UNSPECIFIED 08/28/2019 MATTHEW DAVID MD, Ot N32.81 OVERACTIVE BLADDER 08/28/2019 MATTHEW DAVID MD, Ot R41.82 ALTERED MENTAL STATUS, UNSPECIFIED 08/28/2019 MATTHEW DAVID MD, Ot R79.89 OTHER SPECIFIED ABNORMAL FINDINGS OF BLO 08/28/2019 MATTHEW DAVID MD, Ot Z79.899 OTHER LABEL OPERATOR (CURRENT) DRUG THERAPY 08/28/2019 MATTHEW DAVID MD, Ot Z87.820 PERSONAL HISTORY OF TRAUMATIC BRAIN INJU 08/28/2019 MATTHEW DAVID MD, Ot Z91.19 PATIENT'S NONCOMPLIANCE W [facility] MEDICAL TR 08/28/2019 MATTHEW DAVID MD, Ot Z99.81 DEPENDENCE ON SUPPLEMENTAL OXYGEN 08/29/2019 MATTHEW DAVID MD, Ot B19.20 UNSPECIFIED VIRAL 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 08/29/2019 MATTHEW DAVID MD, Ot D63 .8 ANEMIA IN OTHER CHRONIC DISEASES CLASSIF 08/29/2019 MATTHEW DAVID MD, Ot E11.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 08/29/2019 MATTHEW DAVID MD, Ot E87 .2 ACIDOSIS 08/29/2019 MATTHEW DAVID MD, Ot E87 .5 HYPERKALEMIA 08/29/2019 MATTHEW DAVID MD, Ot F15.10 OTHER STIMULANT ABUSE, UNCOMPLICATED 08/29/2019 MATTHEW DAVID MD, Ot F17.210 NICOTINE DEPENDENCE, CIGARETTES, UNCOMPL 08/29/2019 MATTHEW DAVID MD, Ot F31 .9 BIPOLAR DISORDER, UNSPECIFIED 08/29/2019 MATTHEW DAVID MD, Ot F41 .9 ANXIETY DISORDER, UNSPECIFIED 08/29/2019 MATTHEW DAVID MD, Ot G40.909 EPILEPSY, UNSP, NOT INTRACTABLE, WITHOUT 08/29/2019 MATTHEW DAVID MD, Ot I13 .0 HYP HRT CHR KDNY DIS W HRT FAIL AND ST 08/29/2019 MATTHEW DAVID MD, Ot I25.10 ATHSCL HEART DISEASE OF [place] CORONARY 08/29/2019 MATTHEW DAVID MD, Ot I25 .2 OLD MYOCARDIAL INFARCTION 08/29/2019 MATTHEW DAVID MD, Ot I34 .0 NONRHEUMATIC MITRAL (VALVE) INSUFFICIENC 08/29/2019 MATTHEW DAVID MD, Ot I42 .8 OTHER CARDIOMYOPATHIES 08/29/2019 MATTHEW DAVID MD, Ot I50 .9 HEART FAILURE, UNSPECIFIED 08/29/2019 MATTHEW DAVID MD, Ot 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 INFRC AFFECT 08/29/2019 MATTHEW DAVID MD, Ot I95 .9 HYPOTENSION, UNSPECIFIED 08/29/2019 MATTHEW DAVID MD, Ot J18 .9 PNEUMONIA, UNSPECIFIED ORGANISM 08/29/2019 MATTHEW DAVID MD, Ot J44 .9 CHRONIC OBSTRUCTIVE PULMONARY DISEASE, U 08/29/2019 MATTHEW DAVID MD, Ot J96.21 ACUTE AND CHRONIC RESPIRATORY FAILURE [place] 08/29/2019 MATTHEW DAVID MD, Ot K21 .9 GASTRO-ESOPHAGEAL REFLUX DISEASE WITHOUT 08/29/2019 MATTHEW DAVID MD, Ot N18 .9 CHRONIC KIDNEY DISEASE, UNSPECIFIED 08/29/2019 MATTHEW DAVID MD, Ot N32.81 OVERACTIVE BLADDER 08/29/2019 MATTHEW DAVID MD, Ot R41.82 ALTERED MENTAL STATUS, UNSPECIFIED 08/29/2019 MATTHEW DAVID MD, Ot R79.89 OTHER SPECIFIED ABNORMAL FINDINGS OF BLO 08/29/2019 MATTHEW DAVID MD, Ot Z79.899 OTHER LABEL OPERATOR (CURRENT) DRUG THERAPY 08/29/2019 MATTHEW DAVID MD, Ot Z87.820 PERSONAL HISTORY OF TRAUMATIC BRAIN INJU 08/29/2019 MATTHEW DAVID MD, Ot Z91.19 PATIENT'S NONCOMPLIANCE W OT MEDICAL TR 08/29/2019 MATTHEW DAVID MD, Ot Z99.81 DEPENDENCE ON SUPPLEMENTAL OXYGEN 08/29/2019 MATTHEW DAVID MD, Ot B19.20 UNSPECIFIED VIRAL 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 08/29/2019 MATTHEW DAVID MD, Ot D63 .8 ANEMIA IN OTHER CHRONIC DISEASES CLASSIF 08/29/2019 MATTHEW DAVID MD, Ot E11.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 08/29/2019 MATTHEW DAVID MD, Ot E83.39 OTHER DISORDERS OF PHOSPHORUS METABOLISM 08/29/2019 MATTHEW DAVID MD Ot E87 .2 ACIDOSIS 08/29/2019 MATTHEW DAVID MD, Ot E87 .5 HYPERKALEMIA 08/29/2019 MATTHEW DAVID MD, Ot F15.10 OTHER STIMULANT ABUSE, UNCOMPLICATED 08/29/2019 MATTHEW DAVID MD, Ot F17.210 NICOTINE DEPENDENCE, CIGARETTES, UNCOMPL 08/29/2019 MATTHEW DAVID MD, Ot F31 .9 BIPOLAR DISORDER, UNSPECIFIED 08/29/2019 MATTHEW DAVID MD, Ot F41 .9 ANXIETY DISORDER, UNSPECIFIED 08/29/2019 MATTHEW DAVID MD Ot G40.909 EPILEPSY, UNSP, NOT INTRACTABLE, WITHOUT 08/29/2019 MATTHEW DAVID MD, Ot G43.909 MIGRAINE, UNSP, NOT INTRACTABLE, WITHOUT 08/29/2019 MATTHEW DAVID MD, Ot I13 .0 HYP HRT CHR KD[place] DIS W HRT FAIL AND ST 08/29/2019 MATTHEW DAVID MD Ot I25.10 ATHSCL HEART DISEASE OF [place] CORONARY 08/29/2019 MATTHEW DAVID MD, Ot I25 .2 OLD MYOCARDIAL INFARCTION 08/29/2019 MATTHEW DAVID MD Ot I34 .0 NONRHEUMATIC MITRAL (VALVE) INSUFFICIENC 08/29/2019 MATTHEW DAVID MD, Ot I42 .8 OTHER CARDIOMYOPATHIES 08/29/2019 MATTHEW DAVID MD, Ot I50 .9 HEART FAILURE, UNSPECIFIED 08/29/2019 MATTHEW DAVID MD Ot 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 INFRC AFFECT 08/29/2019 MATTHEW DAVID MD Ot I95 .9 HYPOTENSION, UNSPECIFIED 08/29/2019 JOANN MD, MATTHEW N Ot J18 .9 PNEUMONIA, UNSPECIFIED ORGANISM 08/29/2019 MATTHEW DAVID MD, Ot J44 .9 CHRONIC OBSTRUCTIVE PULMONARY DISEASE, U 08/29/2019 MATTHEW DAVID MD, Ot J96.21 ACUTE AND CHRONIC RESPIRATORY FAILURE [place] 08/29/2019 MATTHEW DAVID MD, Ot K21 .9 GASTRO-ESOPHAGEAL REFLUX DISEASE WITHOUT 08/29/2019 MATTHEW DAVID MD, Ot N18 .9 CHRONIC KIDNEY DISEASE, UNSPECIFIED 08/29/2019 MATTHEW DAVID MD, Ot N32.81 OVERACTIVE BLADDER 08/29/2019 MATTHEW DAVID MD, Ot R41.82 ALTERED MENTAL STATUS, UNSPECIFIED 08/29/2019 MATTHEW DAVID MD, Ot R79.89 OTHER SPECIFIED ABNORMAL FINDINGS OF BLO 08/29/2019 MATTHEW DAVID MD, Ot T43.595A ADVERSE EFFECT OF OT ANTIPSYCHOTICS AND 08/29/2019 MATTHEW DAVID MD, Ot Z79.899 OTHER LABEL OPERATOR (CURRENT) DRUG THERAPY 08/29/2019 MATTHEW DAVID MD, Ot Z87.820 PERSONAL HISTORY OF TRAUMATIC BRAIN INJU 08/29/2019 MATTHEW DAVID MD, Ot Z91.19 PATIENT'S NONCOMPLIANCE W OT MEDICAL TR 08/29/2019 MATTHEW DAVID MD, Ot Z99.81 DEPENDENCE ON SUPPLEMENTAL OXYGEN 09/18/2019 RAJAN VALDOVINOS DO Ot D63.8 ANEMIA IN OTHER CHRONIC DISEASES CLASSIF 09/18/2019 RAJAN VALDOVINOS DO Ot E11.22 TYPE 2 DIABETES MELLITUS W DIABETIC [facility] ATTENDANT 09/18/2019 RAJAN VALDOVINOS DO Ot E11.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 09/18/2019 RAJAN VALDOVINOS DO Ot E83.39 OTHER DISORDERS OF PHOSPHORUS METABOLISM 09/18/2019 RAJAN VALDOVINOS DO Ot E87.5 HYPERKALEMIA 09/18/2019 RAJAN VALDOVINOS DO Ot F10.20 ALCOHOL DEPENDENCE, UNCOMPLICATED 09/18/2019 RAJAN VALDOVINOS DO Ot 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, CIGARETTES, UNCOMPL 09/18/2019 RAJAN VALDOVINOS DO Ot F31.9 BIPOLAR DISORDER, UNSPECIFIED 09/18/2019 RAJAN VALDOVINOS DO Ot F41.9 ANXIETY DISORDER, UNSPECIFIED 09/18/2019 VALDOVINOS DO, RAJAN Ot G40.90 1 EPILEPSY, UNSP, NOT INTRACTABLE, WITH ST 09/18/2019 ARUNA LANGE RAJAN Ot I08.1 RHEUMATIC DISORDERS OF BOTH MITRAL AND T 09/18/2019 ARUNA LANGE RAJAN Ot I13.0 HYP HRT CHR [place] DIS W HRT FAIL AND ST 09/18/2019 VALDOVINOS DO RAJAN Ot I25.10 ATHSCL HEART DISEASE OF [place] CORONARY 09/18/2019 ARUNA LANGE RAJAN Ot I25.2 OLD MYOCARDIAL INFARCTION 09/18/2019 ARUNA LANGE RAJAN Ot I42.9 CARDIOMYOPATHY, UNSPECIFIED 09/18/2019 ARUNA LANGE RAJAN Ot I50.22 CHRONIC SYSTOLIC (CONGESTIVE) HEART FAIL 09/18/2019 ARUNA LANGE RAJAN Ot J44.9 CHRONIC OBSTRUCTIVE PULMONARY DISEASE, U 09/18/2019 ARUNA LANGE RAJAN Ot J96.01 ACUTE RESPIRATORY FAILURE WITH HYPOXIA 09/18/2019 ARUNA LANGE RAJAN Ot K21.9 GASTRO-ESOPHAGEAL REFLUX DISEASE WITHOUT 09/18/2019 ARUNA LANGE RAJAN Ot M19.90 UNSPECIFIED OSTEOARTHRITIS, UNSPECIFIED 09/18/2019 ARUNA LANGE RAJAN Ot M54.2 CERVICALGIA 09/18/2019 ARUNA LANGE RAJAN Ot N17.9 ACUTE KIDNEY FAILURE, UNSPECIFIED 09/18/2019 ARUNA LANGE RAJAN Ot N18.9 CHRONIC KIDNEY DISEASE, UNSPECIFIED 09/18/2019 ARUNA LANGE RAJAN Ot Z79.82 SHELTER (CURRENT) USE OF ASPIRIN 09/18/2019 ARUNA LANGE RAJAN Ot Z87.44 0 PERSONAL HISTORY OF URINARY (TRACT) INFE 09/18/2019 ARUNA LANGE RAJAN Ot Z87.44 2 PERSONAL HISTORY OF URINARY CALCULI 09/18/2019 ARUNA LANGE RAJAN Ot Z87.82 0 PERSONAL HISTORY OF TRAUMATIC BRAIN INJU 09/18/2019 ARUNA LANGE RAJAN Ot Z90.71 0 ACQUIRED ABSENCE OF BOTH CERVIX AND UTER 09/18/2019 ARUNA LANGE RAJAN Ot Z99.11 DEPENDENCE ON RESPIRATOR [VENTILATOR] ST Procedures Code Description Performed By Per formed On 38.93 VENO US CATHETERIZATION NEC 02/05/2010 53.69 OTH OPEN REP OTH HERNIA OF ANTER ABD W 02/05/2010 Urology Tom Mason 09/16/2012 General S Aniya, [place] 10/28/2012 30939 ROUT INE VENIPUNCTURE 12/09/2012 23069 CMP 12/09/2012 67533 PHEN OBARBITAL 12/09/2012 71395 TSH 12/09/2012 59124 CBC 12/09/2012 PODIATRY W CURT HARRISON 03/02/2013 37.22 LEFT HEART CARDIAC CATH 05/10/2013 88.53 LT H EART ANGIOCARDIOGRAM 05/10/2013 88.56 MISAEL DENEEN ARTERIOGR-2 CATH 05/10/2013 21014 ECHO 2D 05/21/2013 86.04 OTHE R SKIN SUBQ I D 06/20/2013 Physical W [facility] Care, Mtc 06/29/[address] A BDOMEN & PELVIS W/ & W/O CONTRAST 12/10/2013 90326 OXIMETRY 12/10/2013 73520 ROUT INE VENIPUNCTURE 08/05/2014 94371 CBC 08/05/2014 [id number] GF R CALC (RESULT ONLY) 08/05/2014 86410 CMP 08/05/2014 65777 OXIMETRY 11/28/2014 J1885 BENJAMIN DOL PER 15 MG, INJ KETOROLAC TROMETHAMINE 11/28/2014 92966 EAR LAVAGE 02/02/2015 [id number] IN SERTION OF INFUSION DEV INTO SUP VENA 05/15/2018 [id number] IN SERTION OF ENDOTRACHEAL AIRWAY INTO TR 07/02/2019 [id number] RE SPIRATORY VENTILATION, LESS THAN 24 CO 07/02/2019 [id number] IN SERTION OF ENDOTRACHEAL AIRWAY INTO TR 08/26/2019 [id number] RE SPIRATORY VENTILATION, LESS THAN 24 CO 08/26/2019 [id number] RE SPIRATORY VENTILATION, 24- 96 CONSECUTI 08/26/2019 [id number] IN SERTION OF INFUSION DEV INTO SUP VENA 09/15/2019 [id number] IN SERTION OF TIVAD INTO CHEST SUBCU/FASC 09/15/2019 [id number] IN SERTION OF ENDOTRACHEAL AIRWAY INTO TR 09/17/2019 [id number] RE SPIRATORY VENTILATION, LESS THAN 24 CO 09/17/2019 Results Test Result Range Urine drug screening test - 08/05/16 21: 25 Urine phencyclidine detection by screening method NEGATIVE NEGATIVE Urine benzodiazepines detection by screening method NEGATIVE NEGATIVE Urine cocaine detection NEGATIVE NEGATI VE Urine amphetamines detection by screening method P OSITIVE NEGATIVE Urine methamphetamine detection by screening method NEGATIVE NEGATIVE Urine cannabinoids detection by screening method N EGATIVE NEGATIVE Urine opiates detection by screening method NEGATI VE NEGATIVE Urine barbiturates detection POSITIVE N EGATIVE Screening urine tricyclic antidepressants detection NEGATIVE NEGATIVE Urine methadone detection by screening method NEGA TIVE NEGATIVE Urine oxycodone detection NEGATIVE NEGA TIVE Urine propoxyphene detection NEGATIVE N EGATIVE Urine buprenophrine screen NEGATIVE NEG ATIVE Complete urinalysis with reflex to cultu re - 08/05/16 21:25 Urine color determination YELLOW NRG Urine clarity determination CLEAR NR G Urine pH measurement by test strip 6.5 5-9 Specific gravity of urine by test strip 1.010 1.016-1.022 Urine protein assay by test strip, semi-quantitative 1+ NEGATIVE Urine glucose detection by automated test strip 1+ NEGATIVE Erythrocytes detection in urine sediment by light micr oscopy NEGATIVE NEGATIVE Urine ketones detection by automated test strip NE GATIVE NEGATIVE Urine nitrite detection by test strip NEGATIVE NEGATIVE Urine total bilirubin detection by test strip NEGA TIVE NEGATIVE Urine urobilinogen measurement by automated test strip (mass/volume) NORMAL NORMAL Urine leukocyte esterase detection by dipstick 1+ NEGATIVE Automated urine sediment erythrocyte cou nt by microscopy (number/high power field) NONE NRG Automated urine sediment leukocyte count by microscopy (number/high power field) [HPF] NRG Bacteria detection in urine sediment by light microsco py FEW NRG Squamous epithelial cells detection in u rine sediment by light microscopy 2-5 NRG Crystals detection in urine sediment by light microsco py NONE NRG Casts detection in urine sediment by light microscopy NONE NRG Mucus detection in urine sediment by light microscopy NEGATIVE NRG Complete urinalysis with reflex to culture YES NRG Bacterial urine culture - 08/05/16 21:25 Bacterial urine culture [id number] NRG COLONY COUNT >100,000/ML NRG FTX;REPORTABLE SENSITIVITY REPORTED 08/07/16 8:10 NRG Bacterial susceptibility panel - 6 21:25 Gentamicin susceptibility test by minimum inhibitory c oncentration <= NRG Trimethoprim/sulfamethoxazole susceptibi lity test by minimum inhibitoryconcentration <= NRG Ampicillin susceptibility test by minimum inhibitory c oncentration <= NRG Tobramycin susceptibility test by minimum inhibitory c oncentration <= NRG Cefazolin susceptibility test by minimum inhibitory co ncentration <= NRG Ceftriaxone susceptibility test by minimum inhibitory concentration <= NRG Ampicillin/sulbactam susceptibility test by minimum inhibitory concentration <= NRG Piperacillin/tazobactam susceptibility t est by minimum inhibitory concentration <= NRG Ciprofloxacin susceptibility test by minimum inhibitor y concentration <= NRG Meropenem susceptibility test by minimum inhibitory co ncentration <= NRG Nitrofurantoin susceptibility test by mi nimum inhibitory concentration <= NRG Aztreonam susceptibility test by minimum inhibitory co ncentration <= NRG Extended spectrum beta lactamase (ESBL) producing bacteria susceptibility test by minimum inhibitory concentration - NR Influenza virus A and B antigen detectio n - 11/23/16 14:40 FLU RESULT NEGATIVE FOR INFLUENZA A AND B ANTIGENS BY IA NR Complete blood count (CBC) with automate d white blood cell (WBC) differential - 03/06/17 09:53 Blood leukocytes automated count (number/volume) 8.6 10*3/uL 4.3-11.0 Blood erythrocytes automated count (number/volume) 5.00 10*6/uL 4.35-5.85 Venous blood hemoglobin measurement (mass/volume) 14.6 g/dL 11.5-16.0 Blood hematocrit (volume fraction) 45 % 35-52 Automated erythrocyte mean corpuscular volume 90 [ foz_us] 80-99 Automated erythrocyte mean corpuscular h emoglobin (mass per erythrocyte) 29 pg 25-34 Automated erythrocyte mean corpuscular h emoglobin concentration measurement (mass/volume) 33 g/dL 32-36 Automated erythrocyte distribution width ratio 13. 2 % 10.0- 14.5 Automated blood platelet count [...] 10*3 1.0-4.0 Blood monocytes automated count (number/volume) 0. 6 10*3 0.0-1.0 Automated eosinophil count 0.3 10*3/uL 0 .0-0.3 Automated blood basophil count (count/volume) 0.0 10*3/uL 0.0-0.1 Comprehensive metabolic panel - 03/06/17 09:53 Serum or plasma sodium measurement (moles/volume) 141 mmol/L 135-145 Serum or plasma potassium measurement (moles/volume) 4.4 mmol/L 3.6-5.0 Serum or plasma chloride measurement (moles/volume) 104 mmol/L 98-107 Carbon dioxide 25 mmol/L 21-32 Serum or plasma anion gap determination (moles/volume) 12 mmol/L 5-14 Serum or plasma urea nitrogen measurement (mass/volume ) 33 mg/dL 7-18 Serum or plasma creatinine measurement (mass/volume) 1.51 mg/dL 0.60-1.30 Serum or plasma urea nitrogen/creatinine mass ratio 22 NRG Serum or plasma creatinine measurement w ith calculation of estimated glomerular filtration rate 36 NRG Serum or plasma glucose measurement (mass/volume) 98 mg/dL 70-105 Serum or plasma calcium measurement (mass/volume) 9.4 mg/dL 8.5-10.1 Serum or plasma total bilirubin measurement (mass/volu me) 0.4 mg/dL 0.1-1.0 Serum or plasma alkaline phosphatase lorenzo surement (enzymatic activity/volume) 64 U/L 40-136 Serum or plasma aspartate aminotransfera se measurement (enzymatic activity/volume) 18 U/L 5-34 Serum or plasma alanine aminotransferase measurement (enzymatic activity/volume) 26 U/L 0-55 Serum or plasma protein measurement (mass/volume) 7.9 g/dL 6.4-8.2 Serum or plasma albumin measurement (mass/volume) 4.2 g/dL 3.2-4.5 Lipase - 03/06/17 09:53 Lipase 60 U/L 8-78 Complete urinalysis with reflex to cultu re - 03/06/17 10:27 Urine color determination YELLOW NRG Urine clarity determination CLEAR NR G Urine pH measurement by test strip 6 5-9 Specific gravity of urine by test strip 1.015 1.016-1.022 Urine protein assay by test strip, semi-quantitative NEGATIVE NEGATIVE Urine glucose detection by automated test strip NE GATIVE NEGATIVE Erythrocytes detection in urine sediment by light micr oscopy NEGATIVE NEGATIVE Urine ketones detection by automated test strip NE GATIVE NEGATIVE Urine nitrite detection by test strip NEGATIVE NEGATIVE Urine total bilirubin detection by test strip NEGA TIVE NEGATIVE Urine urobilinogen measurement by automated test strip (mass/volume) NORMAL NORMAL Urine leukocyte esterase detection by dipstick NEG ATIVE NEGATIVE Automated urine sediment erythrocyte cou nt by microscopy (number/high power field) NONE NRG Automated urine sediment leukocyte count by microscopy (number/high power field) NONE NRG Bacteria detection in urine sediment by light microsco py NEGATIVE NRG Crystals detection in urine sediment by light microsco py NONE NRG Casts detection in urine sediment by light microscopy NONE NRG Mucus detection in urine sediment by light microscopy NEGATIVE NRG Complete urinalysis with reflex to culture NO NRG Complete blood count (CBC) with automate d white blood cell (WBC) differential - 06/18/17 19:30 Blood leukocytes automated count (number/volume) 8.0 10*3/uL 4.3-11.0 Blood erythrocytes automated count (number/volume) 4.36 10*6/uL 4.35-5.85 Venous blood hemoglobin measurement (mass/volume) 13.0 g/dL 11.5-16.0 Blood hematocrit (volume fraction) 39 % 35-52 Automated erythrocyte mean corpuscular volume 90 [ foz_us] 80-99 Automated erythrocyte mean corpuscular h emoglobin (mass per erythrocyte) 30 pg 25-34 Automated erythrocyte mean corpuscular h emoglobin concentration measurement (mass/volume) 33 g/dL 32-36 Automated erythrocyte distribution width ratio 13. 5 % 10.0- 14.5 Automated blood platelet count [...] 10*3 1.0-4.0 Blood monocytes automated count (number/volume) 0. 5 10*3 0.0-1.0 Automated eosinophil count 0.2 10*3/uL 0 .0-0.3 Automated blood basophil count (count/volume) 0.0 10*3/uL 0.0-0.1 Comprehensive metabolic panel - 06/18/17 19:30 Serum or plasma sodium measurement (moles/volume) 140 mmol/L 135-145 Serum or plasma potassium measurement (moles/volume) 4.2 mmol/L 3.6-5.0 Serum or plasma chloride measurement (moles/volume) 106 mmol/L 98-107 Carbon dioxide 21 mmol/L 21-32 Serum or plasma anion gap determination (moles/volume) 13 mmol/L 5-14 Serum or plasma urea nitrogen measurement (mass/volume ) 20 mg/dL 7-18 Serum or plasma creatinine measurement (mass/volume) 1.58 mg/dL 0.60-1.30 Serum or plasma urea nitrogen/creatinine mass ratio 13 NRG Serum or plasma creatinine measurement w ith calculation of estimated glomerular filtration rate 34 NRG Serum or plasma glucose measurement (mass/volume) 114 mg/dL 70-105 Serum or plasma calcium measurement (mass/volume) 8.7 mg/dL 8.5-10.1 Serum or plasma total bilirubin measurement (mass/volu me) 0.3 mg/dL 0.1-1.0 Serum or plasma alkaline phosphatase lorenzo surement (enzymatic activity/volume) 58 U/L 40-136 Serum or plasma aspartate aminotransfera se measurement (enzymatic activity/volume) 20 U/L 5-34 Serum or plasma alanine aminotransferase measurement (enzymatic activity/volume) 38 U/L 0-55 Serum or plasma protein measurement (mass/volume) 7.0 g/dL 6.4-8.2 Serum or plasma albumin measurement (mass/volume) 3.6 g/dL 3.2-4.5 Serum or plasma C reactive protein measu rement (mass/volume) - 06/18/17 19:30 Serum or plasma C reactive protein measurement (mass/v olume) 1.28 mg/dL 0.00-0.50 Complete blood count (CBC) with automate d white blood cell (WBC) differential - 02/03/18 22:55 Blood leukocytes automated count (number/volume) 7.6 10*3/uL 4.3-11.0 Blood erythrocytes automated count (number/volume) 4.48 10*6/uL 4.35-5.85 Venous blood hemoglobin measurement (mass/volume) 13.1 g/dL 11.5-16.0 Blood hematocrit (volume fraction) 40 % 35-52 Automated erythrocyte mean corpuscular volume 90 [ foz_us] 80-99 Automated erythrocyte mean corpuscular h emoglobin (mass per erythrocyte) 29 pg 25-34 Automated erythrocyte mean corpuscular h emoglobin concentration measurement (mass/volume) 33 g/dL 32-36 Automated erythrocyte distribution width ratio 15. 1 % 10.0- 14.5 Automated blood platelet count [...] 10*3 1.0-4.0 Blood monocytes automated count (number/volume) 0. 5 10*3 0.0-1.0 Automated eosinophil count 0.3 10*3/uL 0 .0-0.3 Automated blood basophil count (count/volume) 0.0 10*3/uL 0.0-0.1 PT panel in platelet poor plasma by coag ulation assay - 02/03/18 22:55 Prothrombin time (PT) in platelet poor plasma by coagu lation assay 12.2 s 12.2-14.7 INR in platelet poor plasma or blood by coagulation as say 0.9 0.8-1.4 Activated partial thromboplastin time (a PTT) in platelet poor plasma bycoagulation assay - 02/03/18 22:55 Activated partial thromboplastin time (a PTT) in platelet poor plasma bycoagulation assay 30 s 24-35 Comprehensive metabolic panel - 02/03/18 22:55 Serum or plasma sodium measurement (moles/volume) 140 mmol/L 135-145 Serum or plasma potassium measurement (moles/volume) 6.2 mmol/L 3.6-5.0 Serum or plasma chloride measurement (moles/volume) 109 mmol/L 98-107 Carbon dioxide 21 mmol/L 21-32 Serum or plasma anion gap determination (moles/volume) 10 mmol/L 5-14 Serum or plasma urea nitrogen measurement (mass/volume ) 33 mg/dL 7-18 Serum or plasma creatinine measurement (mass/volume) 1.66 mg/dL 0.60-1.30 Serum or plasma urea nitrogen/creatinine mass ratio 20 NRG Serum or plasma creatinine measurement w ith calculation of estimated glomerular filtration rate 32 NRG Serum or plasma glucose measurement (mass/volume) 104 mg/dL 70-105 Serum or plasma calcium measurement (mass/volume) 9.1 mg/dL 8.5-10.1 Serum or plasma total bilirubin measurement (mass/volu me) 0.3 mg/dL 0.1-1.0 Serum or plasma alkaline phosphatase lorenzo surement (enzymatic activity/volume) 71 U/L 40-136 Serum or plasma aspartate aminotransfera se measurement (enzymatic activity/volume) 29 U/L 5-34 Serum or plasma alanine aminotransferase measurement (enzymatic activity/volume) 21 U/L 0-55 Serum or plasma protein measurement (mass/volume) 7.9 g/dL 6.4-8.2 Serum or plasma albumin measurement (mass/volume) 3.9 g/dL 3.2-4.5 Magnesium - 02/03/18 22:55 Magnesium 2.6 mg/dL 1.8-2.4 Serum or plasma troponin i.cardiac measu rement (mass/volume) - 02/03/18 22:55 Serum or plasma troponin i.cardiac measurement (mass/v olume) < ng/mL <0.30 Myoglobin, serum - 02/03/18 22:55 Myoglobin, serum 33.4 ng/mL 10.0-92.0 Complete urinalysis with reflex to cultu re - 02/03/18 23:10 Urine color determination YELLOW NRG Urine clarity determination CLEAR NR G Urine pH measurement by test strip 6 5-9 Specific gravity of urine by test strip 1.010 1.016-1.022 Urine protein assay by test strip, semi-quantitative NEGATIVE NEGATIVE Urine glucose detection by automated test strip NE GATIVE NEGATIVE Erythrocytes detection in urine sediment by light micr oscopy NEGATIVE NEGATIVE Urine ketones detection by automated test strip NE GATIVE NEGATIVE Urine nitrite detection by test strip NEGATIVE NEGATIVE Urine total bilirubin detection by test strip NEGA TIVE NEGATIVE Urine urobilinogen measurement by automated test strip (mass/volume) NORMAL NORMAL Urine leukocyte esterase detection by dipstick NEG ATIVE NEGATIVE Automated urine sediment erythrocyte cou nt by microscopy (number/high power field) NONE NRG Automated urine sediment leukocyte count by microscopy (number/high power field) [HPF] NRG Bacteria detection in urine sediment by light microsco py TRACE NRG Crystals detection in urine sediment by light microsco py NONE NRG Casts detection in urine sediment by light microscopy NONE NRG Mucus detection in urine sediment by light microscopy NEGATIVE NRG Complete urinalysis with reflex to culture NO NRG Urine drug screening test - 02/03/18 23: 10 Urine phencyclidine detection by screening method NEGATIVE NEGATIVE Urine benzodiazepines detection by screening method NEGATIVE NEGATIVE Urine cocaine detection NEGATIVE NEGATI VE Urine amphetamines detection by screening method N EGATIVE NEGATIVE Urine methamphetamine detection by screening method NEGATIVE NEGATIVE Urine cannabinoids detection by screening method N EGATIVE NEGATIVE Urine opiates detection by screening method NEGATI VE NEGATIVE Urine barbiturates detection NEGATIVE N EGATIVE Screening urine tricyclic antidepressants detection NEGATIVE NEGATIVE Urine methadone detection by screening method NEGA TIVE NEGATIVE Urine oxycodone detection NEGATIVE NEGA TIVE Urine propoxyphene detection NEGATIVE N EGATIVE Serum or plasma troponin i.cardiac measu rement (mass/volume) - 02/04/18 00:30 Serum or plasma troponin i.cardiac measurement (mass/v olume) < ng/mL <0.30 Complete blood count (CBC) with automate d white blood cell (WBC) differential - 02/20/18 20:50 Blood leukocytes automated count (number/volume) 10.0 10*3/uL 4.3-11.0 Blood erythrocytes automated count (number/volume) 4.05 10*6/uL 4.35-5.85 Venous blood hemoglobin measurement (mass/volume) 12.0 g/dL 11.5-16.0 Blood hematocrit (volume fraction) 36 % 35-52 Automated erythrocyte mean corpuscular volume 90 [ foz_us] 80-99 Automated erythrocyte mean corpuscular h emoglobin (mass per erythrocyte) 30 pg 25-34 Automated erythrocyte mean corpuscular h emoglobin concentration measurement (mass/volume) 33 g/dL 32-36 Automated erythrocyte distribution width ratio 14. 2 % 10.0- 14.5 Automated blood platelet count [...] 10*3 1.0-4.0 Blood monocytes automated count (number/volume) 0. 5 10*3 0.0-1.0 Automated eosinophil count 0.2 10*3/uL 0 .0-0.3 Automated blood basophil count (count/volume) 0.0 10*3/uL 0.0-0.1 Fibrin D-dimer FEU measurement in platel et poor plasma (mass/volume) - 02/20/18 20:50 Fibrin [...] 5-14 Serum or plasma urea nitrogen measurement (mass/volume ) 25 mg/dL 7-18 Serum or plasma creatinine measurement (mass/volume) 1.22 mg/dL 0.60-1.30 Serum or plasma urea nitrogen/creatinine mass ratio 20 NRG Serum or plasma creatinine measurement w ith calculation of estimated glomerular filtration rate 45 NRG Serum or plasma glucose measurement (mass/volume) 68 mg/dL 70-105 Serum or plasma calcium measurement (mass/volume) 9.2 mg/dL 8.5-10.1 Serum or plasma total bilirubin measurement (mass/volu me) 0.5 mg/dL 0.1-1.0 Serum or plasma alkaline phosphatase lorenzo surement (enzymatic activity/volume) 68 U/L 40-136 Serum or plasma aspartate aminotransfera se measurement (enzymatic activity/volume) 16 U/L 5-34 Serum or plasma alanine aminotransferase measurement (enzymatic activity/volume) 18 U/L 0-55 Serum or plasma protein measurement (mass/volume) 7.5 g/dL 6.4-8.2 Serum or plasma albumin measurement (mass/volume) 4.1 g/dL 3.2-4.5 Magnesium - 02/20/18 20:50 Magnesium 2.1 mg/dL 1.8-2.4 Serum or plasma troponin i.cardiac measu rement (mass/volume) - 02/20/18 20:50 Serum or plasma troponin i.cardiac measurement (mass/v olume) 0.36 ng/mL <0.30 Serum or plasma C reactive protein measu rement (mass/volume) - 02/20/18 20:50 Serum or plasma C reactive protein measurement (mass/v olume) 4.32 mg/dL 0.00-0.50 Complete urinalysis with reflex to cultu re - 02/20/18 21:23 Urine color determination YELLOW NRG Urine clarity determination CLEAR NR G Urine pH measurement by test strip 7 5-9 Specific gravity of urine by test strip 1.005 1.016-1.022 Urine protein assay by test strip, semi-quantitative 2+ NEGATIVE Urine glucose detection by automated test strip NE GATIVE NEGATIVE Erythrocytes detection in urine sediment by light micr oscopy NEGATIVE NEGATIVE Urine ketones detection by automated test strip NE GATIVE NEGATIVE Urine nitrite detection by test strip NEGATIVE NEGATIVE Urine total bilirubin detection by test strip NEGA TIVE NEGATIVE Urine urobilinogen measurement by automated test strip (mass/volume) NORMAL NORMAL Urine leukocyte esterase detection by dipstick NEG ATIVE NEGATIVE Automated urine sediment erythrocyte cou nt by microscopy (number/high power field) NONE NRG Automated urine sediment leukocyte count by microscopy (number/high power field) NONE NRG Bacteria detection in urine sediment by light microsco py NONE NRG Squamous epithelial cells detection in u rine sediment by light microscopy RARE NRG Crystals detection in urine sediment by light microsco py NONE NRG Casts detection in urine sediment by light microscopy NONE NRG Mucus detection in urine sediment by light microscopy NEGATIVE NRG Complete urinalysis with reflex to culture NO NRG Urine drug screening test - 02/20/18 21: 23 Urine phencyclidine detection by screening method NEGATIVE NEGATIVE Urine benzodiazepines detection by screening method NEGATIVE NEGATIVE Urine cocaine detection NEGATIVE NEGATI VE Urine amphetamines detection by screening method N EGATIVE NEGATIVE Urine methamphetamine detection by screening method NEGATIVE NEGATIVE Urine cannabinoids detection by screening method N EGATIVE NEGATIVE Urine opiates detection by screening method POSITI VE NEGATIVE Urine barbiturates detection POSITIVE N EGATIVE Screening urine tricyclic antidepressants detection NEGATIVE NEGATIVE Urine methadone detection by screening method NEGA TIVE NEGATIVE Urine oxycodone detection NEGATIVE NEGA TIVE Urine propoxyphene detection NEGATIVE N EGATIVE Complete blood count (CBC) with automate d white blood cell (WBC) differential - 02/21/18 05:10 Blood leukocytes automated count (number/volume) 10.7 10*3/uL 4.3-11.0 Blood erythrocytes automated count (number/volume) 4.04 10*6/uL 4.35-5.85 Venous blood hemoglobin measurement (mass/volume) 12.0 g/dL 11.5-16.0 Blood hematocrit (volume fraction) 36 % 35-52 Automated erythrocyte mean corpuscular volume 89 [ foz_us] 80-99 Automated erythrocyte mean corpuscular h emoglobin (mass per erythrocyte) 30 pg 25-34 Automated erythrocyte mean corpuscular h emoglobin concentration measurement (mass/volume) 33 g/dL 32-36 Automated erythrocyte distribution width ratio 14. 8 % 10.0- 14.5 Automated blood platelet count [...] 10*3 1.0-4.0 Blood monocytes automated count (number/volume) 0. 5 10*3 0.0-1.0 Automated eosinophil count 0.1 10*3/uL 0 .0-0.3 Automated blood basophil count (count/volume) 0.0 10*3/uL 0.0-0.1 Comprehensive metabolic panel - 02/21/18 05:10 Serum or plasma sodium measurement (moles/volume) 140 mmol/L 135-145 Serum or plasma potassium measurement (moles/volume) 3.8 mmol/L 3.6-5.0 Serum or plasma chloride measurement (moles/volume) 105 mmol/L 98-107 Carbon dioxide 24 mmol/L 21-32 Serum or plasma anion gap determination (moles/volume) 11 mmol/L 5-14 Serum or plasma urea nitrogen measurement (mass/volume ) 19 mg/dL 7-18 Serum or plasma creatinine measurement (mass/volume) 1.09 mg/dL 0.60-1.30 Serum or plasma urea nitrogen/creatinine mass ratio 17 NRG Serum or plasma creatinine measurement w ith calculation of estimated glomerular filtration rate 52 NRG Serum or plasma glucose measurement (mass/volume) 100 mg/dL 70-105 Serum or plasma calcium measurement (mass/volume) 8.9 mg/dL 8.5-10.1 Serum or plasma total bilirubin measurement (mass/volu me) 0.6 mg/dL 0.1-1.0 Serum or plasma alkaline phosphatase lorenzo surement (enzymatic activity/volume) 55 U/L 40-136 Serum or plasma aspartate aminotransfera se measurement (enzymatic activity/volume) 15 U/L 5-34 Serum or plasma alanine aminotransferase measurement (enzymatic activity/volume) 15 U/L 0-55 Serum or plasma protein measurement (mass/volume) 7.2 g/dL 6.4-8.2 Serum or plasma albumin measurement (mass/volume) 3.8 g/dL 3.2-4.5 Serum or plasma troponin i.cardiac measu rement (mass/volume) - 02/21/18 05:10 Serum or plasma troponin i.cardiac measurement (mass/v olume) 0.36 ng/mL <0.30 Myoglobin, serum - 02/21/18 05:10 Myoglobin, serum 55.9 ng/mL 10.0-92.0 Lipid 1996 panel - 02/21/18 05:10 Serum or plasma triglyceride measurement (mass/volume) 57 mg/dL <150 Serum or plasma cholesterol measurement (mass/volume) 186 mg/dL < 200 Serum or plasma cholesterol in HDL measurement (mass/v olume) 63 mg/dL 40-60 Cholesterol in LDL [mass/volume] in serum or plasma by direct assay 103 mg/dL 1-129 Serum or plasma cholesterol in VLDL measurement (mass/ volume) 11 mg/dL 5-40 Serum or plasma lithium measurement (mol es/volume) - 02/21/18 16:45 BNP level 1517.6 pg/mL <100.0 Complete blood count (CBC) with automate d white blood cell (WBC) differential - 02/23/18 04:00 Blood leukocytes automated count (number/volume) 6.4 10*3/uL 4.3-11.0 Blood erythrocytes automated count (number/volume) 4.10 10*6/uL 4.35-5.85 Venous blood hemoglobin measurement (mass/volume) 12.1 g/dL 11.5-16.0 Blood hematocrit (volume fraction) 36 % 35-52 Automated erythrocyte mean corpuscular volume 89 [ foz_us] 80-99 Automated erythrocyte mean corpuscular h emoglobin (mass per erythrocyte) 30 pg 25-34 Automated erythrocyte mean corpuscular h emoglobin concentration measurement (mass/volume) 33 g/dL 32-36 Automated erythrocyte distribution width ratio 14. 7 % 10.0- 14.5 Automated blood platelet count [...] 10*3 1.0-4.0 Blood monocytes automated count (number/volume) 0. 4 10*3 0.0-1.0 Automated eosinophil count 0.3 10*3/uL 0 .0-0.3 Automated blood basophil count (count/volume) 0.0 10*3/uL 0.0-0.1 Whole blood basic metabolic panel - 02/10 01/28 04:00 Serum or plasma sodium measurement (moles/volume) 139 mmol/L 135-145 Serum or plasma potassium measurement (moles/volume) 4.1 mmol/L 3.6-5.0 Serum or plasma chloride measurement (moles/volume) 103 mmol/L 98-107 Carbon dioxide 24 mmol/L 21-32 Serum or plasma anion gap determination (moles/volume) 12 mmol/L 5-14 Serum or plasma urea nitrogen measurement (mass/volume ) 27 mg/dL 7-18 Serum or plasma creatinine measurement (mass/volume) 1.30 mg/dL 0.60-1.30 Serum or plasma urea nitrogen/creatinine mass ratio 21 NRG Serum or plasma creatinine measurement w ith calculation of estimated glomerular filtration rate 42 NRG Serum or plasma glucose measurement (mass/volume) 105 mg/dL 70-105 Serum or plasma calcium measurement (mass/volume) 8.8 mg/dL 8.5-10.1 Complete blood count (CBC) with automate d white blood cell (WBC) differential - 05/14/18 14:49 Blood leukocytes automated count (number/volume) 12.0 10*3/uL 4.3-11.0 Blood erythrocytes automated count (number/volume) 3.32 10*6/uL 4.35-5.85 Venous blood hemoglobin measurement (mass/volume) 10.2 g/dL 11.5-16.0 Blood hematocrit (volume fraction) 30 % 35-52 Automated erythrocyte mean corpuscular volume 90 [ foz_us] 80-99 Automated erythrocyte mean corpuscular h emoglobin (mass per erythrocyte) 31 pg 25-34 Automated erythrocyte mean corpuscular h emoglobin concentration measurement (mass/volume) 34 g/dL 32-36 Automated erythrocyte distribution width ratio 15. 1 % 10.0- 14.5 Automated blood platelet count [...] 10*3 1.0-4.0 Blood monocytes automated count (number/volume) 0. 6 10*3 0.0-1.0 Automated eosinophil count 0.1 10*3/uL 0 .0-0.3 Automated blood basophil count (count/volume) 0.0 10*3/uL 0.0-0.1 Blood manual differential performed dete ction - 05/14/18 14:49 Blood monocytes/100 leukocytes 2 % NRG Manual blood segmented neutrophils/100 leukocytes 88 % NRG Blood band neutrophils/100 leukocytes 0 % NRG Manual blood lymphocytes/100 leukocytes 10 % NRG Manual eosinophils/100 leukocytes in nose 0 % NRG Manual blood basophils/100 leukocytes 0 % NRG Blood erythrocyte morphology finding identification NORMAL NRG Comprehensive metabolic panel - 05/14/18 14:49 Serum or plasma sodium measurement (moles/volume) 124 mmol/L 135-145 Serum or plasma potassium measurement (moles/volume) 5.0 mmol/L 3.6-5.0 Serum or plasma chloride measurement (moles/volume) 87 mmol/L 98-107 Carbon dioxide 22 mmol/L 21-32 Serum or plasma anion gap determination (moles/volume) 15 mmol/L 5-14 Serum or plasma urea nitrogen measurement (mass/volume ) 63 mg/dL 7-18 Serum or plasma creatinine measurement (mass/volume) 4.00 mg/dL 0.60-1.30 Serum or plasma urea nitrogen/creatinine mass ratio 16 NRG Serum or plasma creatinine measurement w ith calculation of estimated glomerular filtration rate 12 NRG Serum or plasma glucose measurement (mass/volume) 115 mg/dL 70-105 Serum or plasma calcium measurement (mass/volume) 8.7 mg/dL 8.5-10.1 Serum or plasma total bilirubin measurement (mass/volu me) 0.4 mg/dL 0.1-1.0 Serum or plasma alkaline phosphatase lorenzo surement (enzymatic activity/volume) 93 U/L 40-136 Serum or plasma aspartate aminotransfera se measurement (enzymatic activity/volume) 35 U/L 5-34 Serum [...] < mg/dL 5.0-20.0 Serum or plasma acetaminophen measuremen t (mass/volume) - 05/14/18 14:49 Serum or plasma acetaminophen measurement (mass/volume ) < ug/mL 10-30 Serum or plasma ethanol measurement (mas s/volume) - 05/14/18 14:49 Serum or plasma ethanol measurement (mass/volume) < mg/dL <10 Bacterial blood culture - 05/14/18 14:49 Bacterial blood culture NG NRG Urine drug screening test - 05/14/18 15: 07 Urine phencyclidine detection by screening method NEGATIVE NEGATIVE Urine benzodiazepines detection by screening method NEGATIVE NEGATIVE Urine cocaine detection NEGATIVE NEGATI VE Urine amphetamines detection by screening method N EGATIVE NEGATIVE Urine methamphetamine detection by screening method NEGATIVE NEGATIVE Urine cannabinoids detection by screening method N EGATIVE NEGATIVE Urine opiates detection by screening method POSITI VE NEGATIVE Urine barbiturates detection POSITIVE N EGATIVE Screening urine tricyclic antidepressants detection NEGATIVE NEGATIVE Urine methadone detection by screening method NEGA TIVE NEGATIVE Urine oxycodone detection NEGATIVE NEGA TIVE Urine propoxyphene detection NEGATIVE N EGATIVE Complete urinalysis with reflex to cultu re - 05/14/18 15:07 Urine color determination YELLOW NRG Urine clarity determination VERY CLOUDY NRG Urine pH measurement by test strip 5 5-9 Specific gravity of urine by test strip 1.020 1.016-1.022 Urine protein assay by test strip, semi-quantitative 3+ NEGATIVE Urine glucose detection by automated test strip NE GATIVE NEGATIVE Erythrocytes detection in urine sediment by light micr oscopy 2+ NEGATIVE Urine ketones detection by automated test strip 1+ NEGATIVE Urine nitrite detection by test strip NEGATIVE NEGATIVE Urine total bilirubin detection by test strip 2+ NEGATIVE Urine urobilinogen measurement by automated test strip (mass/volume) 1 mg/dL NORMAL Urine leukocyte esterase detection by dipstick 3+ NEGATIVE Automated urine sediment erythrocyte cou nt by microscopy (number/high power field) [HPF] NRG Automated urine sediment leukocyte count by microscopy (number/high power field) [HPF] NRG Bacteria detection in urine sediment by light microsco py NEGATIVE NRG Squamous epithelial cells detection in u rine sediment by light microscopy 0-2 NRG Crystals detection in urine sediment by light microsco py NONE NRG Casts detection in urine sediment by light microscopy NONE NRG Mucus detection in urine sediment by light microscopy NEGATIVE NRG Complete urinalysis with reflex to culture YES NRG Amorphous sediment detection in urine sediment by ligh t microscopy MOD SABRA URATES NRG Bacterial urine culture - 05/14/18 15:07 Bacterial urine culture RML NRG COLONY COUNT . NRG Bacterial blood culture - 05/14/18 17:09 Bacterial blood culture NG NRG C DIFFICILE AG + TOXIN A/B. - 05/14/18 2 0:32 RESULTS NEGATIVE FOR ANTIGEN AND TOXIN A/B NRG Arterial blood gas measurement - 8 20:40 Blood pCO2 49 mm[Hg] 35-45 Blood pO2 71 mm[Hg] 79-93 Arterial blood bicarbonate measurement (moles/volume) 22 mmol/L 23-27 Arterial blood base excess by calculation -4.3 mmo l/L -2.5-2.5 Arterial blood oxygen saturation measurement 93 % 94-100 * Inhaled oxygen flow rate 5L NRG Arterial blood pH measurement with patient temperature correction 7.27 7.37-7.43 Arterial blood carbon dioxide, total measurement (mole s/volume) 23.0 mmol/L 21.0-31.0 Body site RT RAD NRG Assessment of wrist artery patency prior to arterial p uncture YES-POS NRG Setting of ventilation mode NO NR G Measurement of body temperature 98.8 NRG Complete blood count (CBC) with automate d white blood cell (WBC) differential - 05/14/18 20:50 Blood leukocytes automated count (number/volume) 11.5 10*3/uL 4.3-11.0 Blood erythrocytes automated count (number/volume) 2.82 10*6/uL 4.35-5.85 Venous blood hemoglobin measurement (mass/volume) 9.2 g/dL 11.5-16.0 Blood hematocrit (volume fraction) 26 % 35-52 Automated erythrocyte mean corpuscular volume 92 [ foz_us] 80-99 Automated erythrocyte mean corpuscular h emoglobin (mass per erythrocyte) 33 pg 25-34 Automated erythrocyte mean corpuscular h emoglobin concentration measurement (mass/volume) 35 g/dL 32-36 Automated erythrocyte distribution width ratio 14. 8 % 10.0- 14.5 Automated blood platelet count [...] 10*3 1.0-4.0 Blood monocytes automated count (number/volume) 0. 5 10*3 0.0-1.0 Automated eosinophil count 0.0 10*3/uL 0 .0-0.3 Automated blood basophil count (count/volume) 0.0 10*3/uL 0.0-0.1 Comprehensive metabolic panel - 05/14/18 20:50 Serum or plasma sodium measurement (moles/volume) 125 mmol/L 135-145 Serum or plasma potassium measurement (moles/volume) 5.2 mmol/L 3.6-5.0 Serum or plasma chloride measurement (moles/volume) 90 mmol/L 98-107 Carbon dioxide 19 mmol/L 21-32 Serum or plasma anion gap determination (moles/volume) 16 mmol/L 5-14 Serum or plasma urea nitrogen measurement (mass/volume ) 64 mg/dL 7-18 Serum or plasma creatinine measurement (mass/volume) 3.83 mg/dL 0.60-1.30 Serum or plasma urea nitrogen/creatinine mass ratio 17 NRG Serum or plasma creatinine measurement w ith calculation of estimated glomerular filtration rate 12 NRG Serum or plasma glucose measurement (mass/volume) 106 mg/dL 70-105 Serum or plasma calcium measurement (mass/volume) 8.1 mg/dL 8.5-10.1 Serum or plasma total bilirubin measurement (mass/volu me) 0.3 mg/dL 0.1-1.0 Serum or plasma alkaline phosphatase lorenzo surement (enzymatic activity/volume) 87 U/L 40-136 Serum or plasma aspartate aminotransfera se measurement (enzymatic activity/volume) 33 U/L 5-34 Serum or plasma alanine aminotransferase measurement (enzymatic activity/volume) 27 U/L 0-55 Serum or plasma protein measurement (mass/volume) 6.7 g/dL 6.4-8.2 Serum or plasma albumin measurement (mass/volume) 3.8 g/dL 3.2-4.5 Magnesium - 05/14/18 20:50 Magnesium 2.3 mg/dL 1.8-2.4 Blood manual differential performed dete ction - 05/14/18 20:50 Blood monocytes/100 leukocytes 4 % NRG Manual blood segmented neutrophils/100 leukocytes 89 % NRG Manual blood lymphocytes/100 leukocytes 7 % NRG Blood lactic acid measurement (moles/vol ume) - 05/14/18 23:55 Blood lactic acid measurement (moles/volume) 0.97 mmol/L 0.50-2.00 Complete blood count (CBC) with automate d white blood cell (WBC) differential - 05/15/18 03:20 Blood leukocytes automated count (number/volume) 9.1 10*3/uL 4.3-11.0 Blood erythrocytes automated count (number/volume) 2.87 10*6/uL 4.35-5.85 Venous blood hemoglobin measurement (mass/volume) 9.0 g/dL 11.5-16.0 Blood hematocrit (volume fraction) 26 % 35-52 Automated erythrocyte mean corpuscular volume 91 [ foz_us] 80-99 Automated erythrocyte mean corpuscular h emoglobin (mass per erythrocyte) 31 pg 25-34 Automated erythrocyte mean corpuscular h emoglobin concentration measurement (mass/volume) 34 g/dL 32-36 Automated erythrocyte distribution width ratio 14. 9 % 10.0- 14.5 Automated blood platelet count [...] 10*3 1.0-4.0 Blood monocytes automated count (number/volume) 0. 4 10*3 0.0-1.0 Automated eosinophil count 0.1 10*3/uL 0 .0-0.3 Automated blood basophil count (count/volume) 0.0 10*3/uL 0.0-0.1 Whole blood basic metabolic panel - 12/28 03:20 Serum or plasma sodium measurement (moles/volume) 125 mmol/L 135-145 Serum or plasma potassium measurement (moles/volume) 4.3 mmol/L 3.6-5.0 Serum or plasma chloride measurement (moles/volume) 93 mmol/L 98-107 Carbon dioxide 18 mmol/L 21-32 Serum or plasma anion gap determination (moles/volume) 14 mmol/L 5-14 Serum or plasma urea nitrogen measurement (mass/volume ) 66 mg/dL 7-18 Serum or plasma creatinine measurement (mass/volume) 3.66 mg/dL 0.60-1.30 Serum or plasma urea nitrogen/creatinine mass ratio 18 NRG Serum or plasma creatinine measurement w ith calculation of estimated glomerular filtration rate 13 NRG Serum or plasma glucose measurement (mass/volume) 110 mg/dL 70-105 Serum or plasma calcium measurement (mass/volume) 7.5 mg/dL 8.5-10.1 Serum or plasma phosphate measurement (m ass/volume) - 05/15/18 03:20 Serum or plasma phosphate measurement (mass/volume) 7.4 mg/dL 2.3-4.7 Magnesium - 05/15/18 03:20 Magnesium 2.3 mg/dL 1.8-2.4 Arterial blood gas measurement - 8 11:26 Blood pCO2 46 mm[Hg] 35-45 Blood pO2 102 mm[Hg] 79-93 Arterial blood bicarbonate measurement (moles/volume) 19 mmol/L 23-27 Arterial blood base excess by calculation -7.2 mmo l/L -2.5-2.5 Arterial blood oxygen saturation measurement 98 % 94-100 * Inhaled oxygen flow rate 5L NRG Arterial blood pH measurement with patient temperature correction 7.23 7.37-7.43 Arterial blood carbon dioxide, total measurement (mole s/volume) 20.4 mmol/L 21.0-31.0 Body site RIGHT RADIAL NRG Assessment of wrist artery patency prior to arterial p uncture POSITIVE NRG Setting of ventilation mode NO NR G Measurement of body temperature 98.2 NRG Methicillin resistant Staphylococcus aur eus (MRSA) screening culture - 08/03/18 08:44 MRSA [...] 5-14 Serum or plasma urea nitrogen measurement (mass/volume ) 54 mg/dL 7-18 Serum or plasma creatinine measurement (mass/volume) 1.44 mg/dL 0.60-1.30 Serum or plasma urea nitrogen/creatinine mass ratio 38 NRG Serum or plasma creatinine measurement w ith calculation of estimated glomerular filtration rate 38 NRG Serum or plasma glucose measurement (mass/volume) 98 mg/dL 70-105 Serum or plasma calcium measurement (mass/volume) 9.4 mg/dL 8.5-10.1 Serum or plasma total bilirubin measurement (mass/volu me) 0.1 mg/dL 0.1-1.0 Serum or plasma alkaline phosphatase lorenzo surement (enzymatic activity/volume) 78 U/L 40-136 Serum or plasma aspartate aminotransfera se measurement (enzymatic activity/volume) 15 U/L 5-34 Serum [...] <5.0 NON HDL CHOLESTEROL 159 mg/dL (calc) <13 0 Complete blood count (CBC) with automate d white blood cell (WBC) differential - 09/10/18 20:30 Blood leukocytes automated count (number/volume) 9.5 10*3/uL 4.3-11.0 Blood erythrocytes automated count (number/volume) 3.86 10*6/uL 4.35-5.85 Venous blood hemoglobin measurement (mass/volume) 11.6 g/dL 11.5-16.0 Blood hematocrit (volume fraction) 36 % 35-52 Automated erythrocyte mean corpuscular volume 94 [ foz_us] 80-99 Automated erythrocyte mean corpuscular h emoglobin (mass per erythrocyte) 30 pg 25-34 Automated erythrocyte mean corpuscular h emoglobin concentration measurement (mass/volume) 32 g/dL 32-36 Automated erythrocyte distribution width ratio 14. 3 % 10.0- 14.5 Automated blood platelet count [...] 10*3 1.0-4.0 Blood monocytes automated count (number/volume) 0. 7 10*3 0.0-1.0 Automated eosinophil count 0.2 10*3/uL 0 .0-0.3 Automated blood basophil count (count/volume) 0.0 10*3/uL 0.0-0.1 Comprehensive metabolic panel - 09/10/18 20:30 Serum or plasma sodium measurement (moles/volume) 139 mmol/L 135-145 Serum or plasma potassium measurement (moles/volume) 4.1 mmol/L 3.6-5.0 Serum or plasma chloride measurement (moles/volume) 110 mmol/L 98-107 Carbon dioxide 19 mmol/L 21-32 Serum or plasma anion gap determination (moles/volume) 10 mmol/L 5-14 Serum or plasma urea nitrogen measurement (mass/volume ) 30 mg/dL 7-18 Serum or plasma creatinine measurement (mass/volume) 1.35 mg/dL 0.60-1.30 Serum or plasma urea nitrogen/creatinine mass ratio 22 NRG Serum or plasma creatinine measurement w ith calculation of estimated glomerular filtration rate 40 NRG Serum or plasma glucose measurement (mass/volume) 138 mg/dL 70-105 Serum or plasma calcium measurement (mass/volume) 9.0 mg/dL 8.5-10.1 Serum or plasma total bilirubin measurement (mass/volu me) 0.4 mg/dL 0.1-1.0 Serum or plasma alkaline phosphatase lorenzo surement (enzymatic activity/volume) 83 U/L 40-136 Serum or plasma aspartate aminotransfera se measurement (enzymatic activity/volume) 17 U/L 5-34 Serum or plasma alanine aminotransferase measurement (enzymatic activity/volume) 27 U/L 0-55 Serum or plasma protein measurement (mass/volume) 7.4 g/dL 6.4-8.2 Serum or plasma albumin measurement (mass/volume) 3.9 g/dL 3.2-4.5 CALCIUM CORRECTED 9.1 mg/dL 8.5-10.1 Complete urinalysis with reflex to cultu re - 09/10/18 20:42 Urine color determination YELLOW NRG Urine clarity determination CLEAR NR G Urine pH measurement by test strip 6.5 5-9 Specific gravity of urine by test strip 1.010 1.016-1.022 Urine protein assay by test strip, semi-quantitative 2+ NEGATIVE Urine glucose detection by automated test strip 1+ NEGATIVE Erythrocytes detection in urine sediment by light micr oscopy NEGATIVE NEGATIVE Urine ketones detection by automated test strip NE GATIVE NEGATIVE Urine nitrite detection by test strip NEGATIVE NEGATIVE Urine total bilirubin detection by test strip NEGA TIVE NEGATIVE Urine urobilinogen measurement by automated test strip (mass/volume) NORMAL NORMAL Urine leukocyte esterase detection by dipstick NEG ATIVE NEGATIVE Automated urine sediment erythrocyte cou nt by microscopy (number/high power field) NONE NRG Automated urine sediment leukocyte count by microscopy (number/high power field) RARE NRG Bacteria detection in urine sediment by light microsco py NONE NRG Squamous epithelial cells detection in u rine sediment by light microscopy 0-2 NRG Crystals detection in urine sediment by light microsco py NONE NRG Casts detection in urine sediment by light microscopy NONE NRG Mucus detection in urine sediment by light microscopy NEGATIVE NRG Complete urinalysis with reflex to culture NO NRG CULTURE, URINE - 11/30/18 09:58 CULTURE, URINE, ROUTINE SEE NOTE NRG Complete blood count (CBC) with automate d white blood cell (WBC) differential - 05/04/19 08:48 Blood leukocytes automated count (number/volume) 5.2 10*3/uL 4.3-11.0 Blood erythrocytes automated count (number/volume) 4.42 10*6/uL 4.35-5.85 Venous blood hemoglobin measurement (mass/volume) 12.2 g/dL 11.5-16.0 Blood hematocrit (volume fraction) 38 % 35-52 Automated erythrocyte mean corpuscular volume 87 [ foz_us] 80-99 Automated erythrocyte mean corpuscular h emoglobin (mass per erythrocyte) 28 pg 25-34 Automated erythrocyte mean corpuscular h emoglobin concentration measurement (mass/volume) 32 g/dL 32-36 Automated erythrocyte distribution width ratio 15. 9 % 10.0- 14.5 Automated blood platelet count (count/volume) 358 10*3/uL 130-400 Automated blood platelet mean volume measurement 9.7 [foz_us] 7.4-10.4 Automated blood neutrophils/100 leukocytes 39 % 42-75 Automated blood lymphocytes/100 leukocytes 43 % 12-44 Blood monocytes/100 leukocytes 16 % 0-12 Automated blood eosinophils/100 leukocytes 1 % 0-10 Automated blood basophils/100 leukocytes 1 % 0-10 Blood neutrophils automated count (number/volume) 2.0 10*3 1.8-7.8 Blood lymphocytes automated count (number/volume) 2.3 10*3 1.0-4.0 Blood monocytes automated count (number/volume) 0. 8 10*3 0.0-1.0 Automated eosinophil count 0.1 10*3/uL 0 .0-0.3 Automated blood basophil count (count/volume) 0.0 10*3/uL 0.0-0.1 Blood lactic acid measurement (moles/vol ume) - 05/04/19 08:48 Blood lactic acid measurement (moles/volume) 0.98 mmol/L 0.50-2.00 Comprehensive metabolic panel - 05/04/19 08:48 Serum or plasma sodium measurement (moles/volume) 137 mmol/L 135-145 Serum or plasma potassium measurement (moles/volume) 5.1 mmol/L 3.6-5.0 Serum or plasma chloride measurement (moles/volume) 106 mmol/L 98-107 Carbon dioxide 21 mmol/L 21-32 Serum or plasma anion gap determination (moles/volume) 10 mmol/L 5-14 Serum or plasma urea nitrogen measurement (mass/volume ) 37 mg/dL 7-18 Serum or plasma creatinine measurement (mass/volume) 1.57 mg/dL 0.60-1.30 Serum or plasma urea nitrogen/creatinine mass ratio 24 NRG Serum or plasma creatinine measurement w ith calculation of estimated glomerular filtration rate 34 NRG Serum or plasma glucose measurement (mass/volume) 105 mg/dL 70-105 Serum or plasma calcium measurement (mass/volume) 9.1 mg/dL 8.5-10.1 Serum or plasma total bilirubin measurement (mass/volu me) 0.3 mg/dL 0.1-1.0 Serum or plasma alkaline phosphatase lorenzo surement (enzymatic activity/volume) 90 U/L 40-136 Serum or plasma aspartate aminotransfera se measurement (enzymatic activity/volume) 13 U/L 5-34 Serum or plasma alanine aminotransferase measurement (enzymatic activity/volume) 25 U/L 0-55 Serum or plasma protein measurement (mass/volume) 7.8 g/dL 6.4-8.2 Serum or plasma albumin measurement (mass/volume) 3.8 g/dL 3.2-4.5 CALCIUM CORRECTED 9.3 mg/dL 8.5-10.1 Magnesium - 05/04/19 08:48 Magnesium 1.6 mg/dL 1.8-2.4 Serum or plasma troponin i.cardiac measu rement (mass/volume) - 05/04/19 08:48 Serum or plasma troponin i.cardiac measurement (mass/v olume) 0.093 ng/mL <0.028 PT panel in platelet poor plasma by coag ulation assay - 05/04/19 08:48 Prothrombin time (PT) in platelet poor plasma by coagu lation assay 13.4 s 12.2-14.7 INR in platelet poor plasma or blood by coagulation as say 1.0 0.8-1.4 Activated partial thromboplastin time (a PTT) in platelet poor plasma bycoagulation assay - 05/04/19 08:48 Activated partial thromboplastin time (a PTT) in platelet poor plasma bycoagulation assay 33 s 24-35 Myoglobin, serum - 05/04/19 08:48 Myoglobin, serum 31.4 ng/mL 10.0-92.0 Serum or plasma C reactive protein measu rement (mass/volume) - 05/04/19 08:48 Serum or plasma C reactive protein measurement (mass/v olume) 1.79 mg/dL 0.00-0.50 Fibrin D-dimer FEU measurement in platel et poor plasma (mass/volume) - 05/04/19 08:48 Fibrin D-dimer FEU measurement in platelet poor plasma (mass/volume) 1.85 ug/mL 0.00-0.49 Bacterial blood culture - 05/04/19 08:48 Bacterial blood culture NG NRG Bacterial blood culture - 05/04/19 09:12 Bacterial blood culture NG NRG Serum or plasma troponin i.cardiac measu rement (mass/volume) - 05/04/19 10:54 Serum or plasma troponin i.cardiac measurement (mass/v olume) 0.080 ng/mL <0.028 Complete urinalysis with reflex to cultu re - 05/04/19 11:04 Urine color determination YELLOW NRG Urine clarity determination SLIGHTLY CLOUDY NRG Urine pH measurement by test strip 6 5-9 Specific gravity of urine by test strip 1.015 1.016-1.022 Urine protein assay by test strip, semi-quantitative 2+ NEGATIVE Urine glucose detection by automated test strip 1+ NEGATIVE Erythrocytes detection in urine sediment by light micr oscopy NEGATIVE NEGATIVE Urine ketones detection by automated test strip NE GATIVE NEGATIVE Urine nitrite detection by test strip NEGATIVE NEGATIVE Urine total bilirubin detection by test strip NEGA TIVE NEGATIVE Urine urobilinogen measurement by automated test strip (mass/volume) NORMAL NORMAL Urine leukocyte esterase detection by dipstick NEG ATIVE NEGATIVE Automated urine sediment erythrocyte cou nt by microscopy (number/high power field) NONE NRG Automated urine sediment leukocyte count by microscopy (number/high power field) [HPF] NRG Bacteria detection in urine sediment by light microsco py TRACE NRG Squamous epithelial cells detection in u rine sediment by light microscopy 5-10 NRG Crystals detection in urine sediment by light microsco py NONE NRG Casts detection in urine sediment by light microscopy PRESENT NRG Mucus detection in urine sediment by light microscopy NEGATIVE NRG Complete urinalysis with reflex to culture NO NRG Granular casts detection in urine sediment by light mi croscopy 5-10 NRG PDM - 09 PANEL (PROFILE 1) - 05/05/19 11 :06 Prescribed Drug 1 Lorazepam NRG Creatinine 70.0 mg/dL > or = 20.0 pH 5.97 4.5 - 9.0 Oxidant NEGATIVE mcg/mL <200 Amphetamines NEGATIVE ng/mL <500 medMATCH Amphetamines CONSISTENT NRG Benzodiazepines NEGATIVE ng/mL <100 medMATCH Benzodiazepines INCONSISTENT N RG Marijuana Metabolite NEGATIVE ng/mL <20 medMATCH Marijuana Metab CONSISTENT NRG Cocaine Metabolite NEGATIVE ng/mL <150 medMATCH Cocaine Metab CONSISTENT NRG Opiates NEGATIVE ng/mL <100 medMATCH Opiates CONSISTENT NRG Oxycodone NEGATIVE ng/mL <100 medMATCH Oxycodone CONSISTENT NRG COMMENT NRG Prescribed Drug 2 Phenobarbital NRG Barbiturates POSITIVE ng/mL <300 Methadone Metabolite NEGATIVE ng/mL <100 medMATCH Methadone Metab CONSISTENT NRG Phencyclidine NEGATIVE ng/mL <25 medMATCH Phencyclidine CONSISTENT NRG Amobarbital NEGATIVE ng/mL <100 medMATCH Amobarbital CONSISTENT NRG Butalbital NEGATIVE ng/mL <100 medMATCH Butalbital CONSISTENT NRG Pentobarbital NEGATIVE ng/mL <100 medMATCH Pentobarbital CONSISTENT NRG Phenobarbital 8145 ng/mL <100 medMATCH Phenobarbital CONSISTENT NRG Secobarbital NEGATIVE ng/mL <100 medMATCH Secobarbital CONSISTENT NRG CMP - 06/11/19 13:54 GLUCOSE 99 mg/dL 65-99 UREA NITROGEN (BUN) 47 mg/dL 7-25 CREATININE 1.57 mg/dL 0.50-1.05 eGFR NON-AFR. CITIZEN [place] 36 mL/min/1.73m2 > OR = 60 eGFR 42 mL/min/1.73m2 > OR = 60 BUN/CREATININE RATIO 30 (calc) 6-22 SODIUM 137 mmol/L 135-146 POTASSIUM 4.6 mmol/L 3.5-5.3 CHLORIDE 109 mmol/L 98-110 CARBON DIOXIDE 20 mmol/L 20-32 CALCIUM 8.6 mg/dL 8.6-10.4 PROTEIN, TOTAL 7.5 g/dL 6.1-8.1 ALBUMIN 4.1 g/dL 3.6-5.1 GLOBULIN 3.4 g/dL (calc) 1.9-3.7 ALBUMIN/GLOBULIN RATIO 1.2 (calc) 1.0-2. 5 BILIRUBIN, TOTAL 0.2 mg/dL 0.2-1.2 ALKALINE PHOSPHATASE 85 U/L 33-130 AST 15 U/L 10-35 ALT 18 U/L 6-29 Complete urinalysis with reflex to cultu re - 07/02/19 11:04 Urine color determination YELLOW NRG Urine clarity determination SLIGHTLY CLOUDY NRG Urine pH measurement by test strip 5 5-9 Specific gravity of urine by test strip 1.020 1.016-1.022 Urine protein assay by test strip, semi-quantitative 2+ NEGATIVE Urine glucose detection by automated test strip NE GATIVE NEGATIVE Erythrocytes detection in urine sediment by light micr oscopy NEGATIVE NEGATIVE Urine ketones detection by automated test strip NE GATIVE NEGATIVE Urine nitrite detection by test strip NEGATIVE NEGATIVE Urine total bilirubin detection by test strip NEGA TIVE NEGATIVE Urine urobilinogen measurement by automated test strip (mass/volume) NORMAL NORMAL Urine leukocyte esterase detection by dipstick 3+ NEGATIVE Automated urine sediment erythrocyte cou nt by microscopy (number/high power field) NONE NRG Automated urine sediment leukocyte count by microscopy (number/high power field) [HPF] NRG Bacteria detection in urine sediment by light microsco py MODERATE NRG Squamous epithelial cells detection in u rine sediment by light microscopy 2-5 NRG Crystals detection in urine sediment by light microsco py NONE NRG Casts detection in urine sediment by light microscopy NONE NRG Mucus detection in urine sediment by light microscopy NEGATIVE NRG Complete urinalysis with reflex to culture YES NRG Urine drug screening test - 07/02/19 11: 04 Urine phencyclidine detection by screening method NEGATIVE NEGATIVE Urine benzodiazepines detection by screening method NEGATIVE NEGATIVE Urine cocaine detection NEGATIVE NEGATI VE Urine amphetamines detection by screening method P OSITIVE NEGATIVE Urine methamphetamine detection by screening method POSITIVE NEGATIVE Urine cannabinoids detection by screening method N EGATIVE NEGATIVE Urine opiates detection by screening method NEGATI VE NEGATIVE Urine barbiturates detection POSITIVE N EGATIVE Screening urine tricyclic antidepressants detection NEGATIVE NEGATIVE Urine methadone detection by screening method NEGA TIVE NEGATIVE Urine oxycodone detection NEGATIVE NEGA TIVE Urine propoxyphene detection NEGATIVE N EGATIVE Bacterial urine culture - 07/02/19 11:04 Bacterial urine culture [id number] NRG COLONY COUNT >100,000/ML NRG FTX;REPORTABLE SUSCEPTIBILITIES REPORTED [id number] NRG Dirithromycin susceptibility test by dis k diffusion - 07/02/19 11:04 Gentamicin susceptibility test by minimum inhibitory c oncentration <= NRG Trimethoprim/sulfamethoxazole susceptibi lity test by minimum inhibitoryconcentration <= NRG Levofloxacin susceptibility test by minimum inhibitory concentration <= NRG Ampicillin susceptibility test by minimum inhibitory c oncentration <= NRG Cefazolin susceptibility test by minimum inhibitory co ncentration <= NRG Ceftriaxone susceptibility test by minimum inhibitory concentration <= NRG Ciprofloxacin susceptibility test by minimum inhibitor y concentration <= NRG Meropenem susceptibility test by minimum inhibitory co ncentration <= NRG Nitrofurantoin susceptibility test by mi nimum inhibitory concentration <= NRG Amoxicillin and clavulanate potassium susc JOHANA <= NRG Dirithromycin susceptibility test by dis k diffusion - 07/02/19 11:04 Gentamicin susceptibility test by minimum inhibitory c oncentration <= NRG Trimethoprim/sulfamethoxazole susceptibi lity test by minimum inhibitoryconcentration <= NRG Levofloxacin susceptibility test by minimum inhibitory concentration <= NRG Ampicillin susceptibility test by minimum inhibitory c oncentration > NRG Cefazolin susceptibility test by minimum inhibitory co ncentration 2 NRG Ceftriaxone susceptibility test by minimum inhibitory concentration <= NRG Ciprofloxacin susceptibility test by minimum inhibitor y concentration <= NRG Meropenem susceptibility test by minimum inhibitory co ncentration <= NRG Nitrofurantoin susceptibility test by mi nimum inhibitory concentration 32 NRG Amoxicillin and clavulanate potassium susc JOHANA <= NRG Complete blood count (CBC) with automate d white blood cell (WBC) differential - 07/02/19 11:30 Blood leukocytes automated count (number/volume) 5.1 10*3/uL 4.3-11.0 Blood erythrocytes automated count (number/volume) 3.17 10*6/uL 4.35-5.85 Venous blood hemoglobin measurement (mass/volume) 9.2 g/dL 11.5-16.0 Blood hematocrit (volume fraction) 29 % 35-52 Automated erythrocyte mean corpuscular volume 90 [ foz_us] 80-99 Automated erythrocyte mean corpuscular h emoglobin (mass per erythrocyte) 29 pg 25-34 Automated erythrocyte mean corpuscular h emoglobin concentration measurement (mass/volume) 32 g/dL 32-36 Automated erythrocyte distribution width ratio 15. 0 % 10.0- 14.5 Automated blood platelet count (count/volume) 249 10*3/uL 130-400 Automated blood platelet mean volume measurement 10.2 [foz_us] 7.4-10.4 Automated blood neutrophils/100 leukocytes 71 % 42-75 Automated blood lymphocytes/100 leukocytes 23 % 12-44 Blood monocytes/100 leukocytes 6 % 0-12 Automated blood eosinophils/100 leukocytes 0 % 0-10 Automated blood basophils/100 leukocytes 0 % 0-10 Blood neutrophils automated count (number/volume) 3.6 10*3 1.8-7.8 Blood lymphocytes automated count (number/volume) 1.2 10*3 1.0-4.0 Blood monocytes automated count (number/volume) 0. 3 10*3 0.0-1.0 Automated eosinophil count 0.0 10*3/uL 0 .0-0.3 Automated blood basophil count (count/volume) 0.0 10*3/uL 0.0-0.1 Blood lactic acid measurement (moles/vol ume) - 07/02/19 11:30 Blood lactic acid measurement (moles/volume) 0.63 mmol/L 0.50-2.00 PT panel in platelet poor plasma by coag ulation assay - 07/02/19 11:30 Prothrombin time (PT) in platelet poor plasma by coagu lation assay 13.4 s 12.2-14.7 INR in platelet poor plasma or blood by coagulation as say 1.0 0.8-1.4 Activated partial thromboplastin time (a PTT) in platelet poor plasma bycoagulation assay - 07/02/19 11:30 Activated partial thromboplastin time (a PTT) in platelet poor plasma bycoagulation assay 38 s 24-35 Comprehensive metabolic panel - 07/02/19 11:30 Serum or plasma sodium measurement (moles/volume) 133 mmol/L 135-145 Serum or plasma potassium measurement (moles/volume) 3.4 mmol/L 3.6-5.0 Serum or plasma chloride measurement (moles/volume) 105 mmol/L 98-107 Carbon dioxide 21 mmol/L 21-32 Serum or plasma anion gap determination (moles/volume) 7 mmol/L 5-14 Serum or plasma urea nitrogen measurement (mass/volume ) 61 mg/dL 7-18 Serum or plasma creatinine measurement (mass/volume) 2.38 mg/dL 0.60-1.30 Serum or plasma urea nitrogen/creatinine mass ratio 26 NRG Serum or plasma creatinine measurement w ith calculation of estimated glomerular filtration rate 21 NRG Serum or plasma glucose measurement (mass/volume) 115 mg/dL 70-105 Serum or plasma calcium measurement (mass/volume) 7.4 mg/dL 8.5-10.1 Serum or plasma total bilirubin measurement (mass/volu me) 0.3 mg/dL 0.1-1.0 Serum or plasma alkaline phosphatase lorenzo surement (enzymatic activity/volume) 63 U/L 40-136 Serum or plasma aspartate aminotransfera se measurement (enzymatic activity/volume) 35 U/L 5-34 Serum or plasma alanine aminotransferase measurement (enzymatic activity/volume) 29 U/L 0-55 Serum or plasma protein measurement (mass/volume) 5.8 g/dL 6.4-8.2 Serum or plasma albumin measurement (mass/volume) 3.3 g/dL 3.2-4.5 CALCIUM CORRECTED 8.0 mg/dL 8.5-10.1 Ammonia - 07/02/19 11:30 Ammonia 24 umol/L 11-32 Serum or plasma acetaminophen measuremen t (mass/volume) - 07/02/19 11:30 Serum or plasma acetaminophen measurement (mass/volume ) < ug/mL 10-30 Serum or plasma ethanol measurement (mas s/volume) - 07/02/19 11:30 Serum or plasma ethanol measurement (mass/volume) < mg/dL <10 Serum or plasma triglyceride measurement (mass/volume) - 07/02/19 11:30 Serum or plasma triglyceride measurement (mass/volume) 48 mg/dL <150 Bacterial blood culture - 07/02/19 11:30 Bacterial blood culture NG NRG Bacterial blood culture - 07/02/19 11:35 Bacterial blood culture NG NRG Arterial blood gas measurement - 9 11:57 Blood pCO2 39 mm[Hg] 35-45 Blood pO2 107 mm[Hg] 79-93 Arterial blood bicarbonate measurement (moles/volume) 19 mmol/L 23-27 Arterial blood base excess by calculation -6.3 mmo l/L -2.5-2.5 Arterial blood oxygen saturation measurement 98 % 94-100 * Inhaled oxygen flow rate 2 NRG Arterial blood pH measurement with patient temperature correction 7.30 7.37-7.43 Arterial blood carbon dioxide, total measurement (mole s/volume) 20.4 mmol/L 21.0-31.0 Body site LEFT RADIAL NRG Assessment of wrist artery patency prior to arterial p uncture POSITIVE NRG Setting of ventilation mode NO NR G Measurement of body temperature 35.8 NRG Sputum Gram stain - 07/02/19 16:00 Sputum Gram stain Cocci in Chains NRG Bacterial sputum culture - 07/02/19 16:0 0 FREE TEXT EXTERNAL SUSCEPTIBILITY REPORTED 07/06 11 :50 NRG QUANTITY OF GROWTH FEW NRG Bacterial sputum culture [id number] NRG Dirithromycin susceptibility test by dis k diffusion - 07/02/19 16:00 Oxacillin susceptibility test by minimum inhibitory co ncentration 0.5 NRG Clindamycin susceptibility test by minimum inhibitory concentration <= NRG Erythromycin susceptibility test by minimum inhibitory concentration <= NRG Trimethoprim/sulfamethoxazole susceptibi lity test by minimum inhibitoryconcentration <= NRG Vancomycin susceptibility test by minimum inhibitory c oncentration 1 NRG Levofloxacin susceptibility test by minimum inhibitory concentration <= NRG Rifampin susceptibility test by minimum inhibitory con centration <= NRG Cefazolin susceptibility test by minimum inhibitory co ncentration <= NRG Linezolid susceptibility test by minimum inhibitory co ncentration 2 NRG Moxifloxacin susceptibility test by minimum inhibitory concentration <= NRG Minocycline susc JOHANA <= NRG Capillary blood glucose measurement by g lucometer (mass/volume) - 07/02/19 17:42 Capillary blood glucose measurement by glucometer (mas s/volume) 109 mg/dL 70-110 Methicillin resistant Staphylococcus aur eus (MRSA) screening culture - 07/02/19 18:40 MRSA SCREEN RESULT MRSA ISOLATED NRG Capillary blood glucose measurement by g lucometer (mass/volume) - 07/02/19 23:03 Capillary blood glucose measurement by glucometer (mas s/volume) 81 mg/dL 70-110 Complete blood count (CBC) with automate d white blood cell (WBC) differential - 07/03/19 03:25 Blood leukocytes automated count (number/volume) 7.2 10*3/uL 4.3-11.0 Blood erythrocytes automated count (number/volume) 3.53 10*6/uL 4.35-5.85 Venous blood hemoglobin measurement (mass/volume) 10.3 g/dL 11.5-16.0 Blood hematocrit (volume fraction) 32 % 35-52 Automated erythrocyte mean corpuscular volume 90 [ foz_us] 80-99 Automated erythrocyte mean corpuscular h emoglobin (mass per erythrocyte) 29 pg 25-34 Automated erythrocyte mean corpuscular h emoglobin concentration measurement (mass/volume) 33 g/dL 32-36 Automated erythrocyte distribution width ratio 15. 3 % 10.0- 14.5 Automated blood platelet count (count/volume) 249 10*3/uL 130-400 Automated blood platelet mean volume measurement 10.5 [foz_us] 7.4-10.4 Automated blood neutrophils/100 leukocytes 87 % 42-75 Automated blood lymphocytes/100 leukocytes 8 % 12-44 Blood monocytes/100 leukocytes 4 % 0-12 Automated blood eosinophils/100 leukocytes 1 % 0-10 Automated blood basophils/100 leukocytes 0 % 0-10 Blood neutrophils automated count (number/volume) 6.3 10*3 1.8-7.8 Blood lymphocytes automated count (number/volume) 0.6 10*3 1.0-4.0 Blood monocytes automated count (number/volume) 0. 3 10*3 0.0-1.0 Automated eosinophil count 0.1 10*3/uL 0 .0-0.3 Automated blood basophil count (count/volume) 0.0 10*3/uL 0.0-0.1 Whole blood basic metabolic panel - 06/14 10/31 03:25 Serum or plasma sodium measurement (moles/volume) 140 mmol/L 135-145 Serum or plasma potassium measurement (moles/volume) 3.0 mmol/L 3.6-5.0 Serum or plasma chloride measurement (moles/volume) 110 mmol/L 98-107 Carbon dioxide 16 mmol/L 21-32 Serum or plasma anion gap determination (moles/volume) 14 mmol/L 5-14 Serum or plasma urea nitrogen measurement (mass/volume ) 50 mg/dL 7-18 Serum or plasma creatinine measurement (mass/volume) 1.99 mg/dL 0.60-1.30 Serum or plasma urea nitrogen/creatinine mass ratio 25 NRG Serum or plasma creatinine measurement w ith calculation of estimated glomerular filtration rate 26 NRG Serum or plasma glucose measurement (mass/volume) 80 mg/dL 70-105 Serum or plasma calcium measurement (mass/volume) 7.6 mg/dL 8.5-10.1 Serum or plasma phosphate measurement (m ass/volume) - 07/03/19 03:25 Serum or plasma phosphate measurement (mass/volume) 6.0 mg/dL 2.3-4.7 Magnesium - 07/03/19 03:25 Magnesium 2.3 mg/dL 1.6-2.4 Manual absolute plasma cell count - 06/14 10/31 03:25 Blood monocytes/100 leukocytes 1 % NRG Manual blood segmented neutrophils/100 leukocytes 78 % NRG Blood band neutrophils/100 leukocytes 12 % NRG Manual blood lymphocytes/100 leukocytes 7 % NRG Manual eosinophils/100 leukocytes in nose 2 % NRG Blood anisocytosis detection by light microscopy S LIGHT NRG Blood poikilocytosis detection by light microscopy SLIGHT NRG Blood spherocytes detection by light microscopy SL IGHT NRG Arterial blood gas measurement - 9 04:00 Blood pCO2 34 mm[Hg] 35-45 Blood pO2 87 mm[Hg] 79-93 Arterial blood bicarbonate measurement (moles/volume) 17 mmol/L 23-27 Arterial blood base excess by calculation -8.3 mmo l/L -2.5-2.5 Arterial blood oxygen saturation measurement 95 % 94-100 * Inhaled oxygen flow rate 40 NRG Arterial blood pH measurement with patient temperature correction 7.32 7.37-7.43 Arterial blood carbon dioxide, total measurement (mole s/volume) 17.7 mmol/L 21.0-31.0 Body site LT RAD NRG Assessment of wrist artery patency prior to arterial p uncture YES-POS NRG Setting of ventilation mode YES NR G Measurement of body temperature 36.8 NRG Blood lactic acid measurement (moles/vol ume) - 07/03/19 07:45 Blood lactic acid measurement (moles/volume) 0.58 mmol/L 0.50-2.00 Capillary blood glucose measurement by g lucometer (mass/volume) - 07/03/19 12:01 Capillary blood glucose measurement by glucometer (mas s/volume) 79 mg/dL 70-110 Whole blood basic metabolic panel - 06/14 10/31 20:00 Serum or plasma sodium measurement (moles/volume) 143 mmol/L 135-145 Serum or plasma potassium measurement (moles/volume) 3.7 mmol/L 3.6-5.0 Serum or plasma chloride measurement (moles/volume) 113 mmol/L 98-107 Carbon dioxide 22 mmol/L 21-32 Serum or plasma anion gap determination (moles/volume) 8 mmol/L 5-14 Serum or plasma urea nitrogen measurement (mass/volume ) 34 mg/dL 7-18 Serum or plasma creatinine measurement (mass/volume) 1.57 mg/dL 0.60-1.30 Serum or plasma urea nitrogen/creatinine mass ratio 22 NRG Serum or plasma creatinine measurement w ith calculation of estimated glomerular filtration rate 34 NRG Serum or plasma glucose measurement (mass/volume) 141 mg/dL 70-105 Serum or plasma calcium measurement (mass/volume) 7.2 mg/dL 8.5-10.1 Complete blood count (CBC) with automate d white blood cell (WBC) differential - 07/05/19 06:00 Blood leukocytes automated count (number/volume) 7.6 10*3/uL 4.3-11.0 Blood erythrocytes automated count (number/volume) 3.91 10*6/uL 4.35-5.85 Venous blood hemoglobin measurement (mass/volume) 11.3 g/dL 11.5-16.0 Blood hematocrit (volume fraction) 36 % 35-52 Automated erythrocyte mean corpuscular volume 91 [ foz_us] 80-99 Automated erythrocyte mean corpuscular h emoglobin (mass per erythrocyte) 29 pg 25-34 Automated erythrocyte mean corpuscular h emoglobin concentration measurement (mass/volume) 32 g/dL 32-36 Automated erythrocyte distribution width ratio 15. 5 % 10.0- 14.5 Automated blood platelet count (count/volume) 322 10*3/uL 130-400 Automated blood platelet mean volume measurement 10.4 [foz_us] 7.4-10.4 Automated blood neutrophils/100 leukocytes 61 % 42-75 Automated blood lymphocytes/100 leukocytes 29 % 12-44 Blood monocytes/100 leukocytes 6 % 0-12 Automated blood eosinophils/100 leukocytes 5 % 0-10 Automated blood basophils/100 leukocytes 0 % 0-10 Blood neutrophils automated count (number/volume) 4.6 10*3 1.8-7.8 Blood lymphocytes automated count (number/volume) 2.2 10*3 1.0-4.0 Blood monocytes automated count (number/volume) 0. 4 10*3 0.0-1.0 Automated eosinophil count 0.3 10*3/uL 0 .0-0.3 Automated blood basophil count (count/volume) 0.0 10*3/uL 0.0-0.1 Comprehensive metabolic panel - 07/05/19 06:00 Serum or plasma sodium measurement (moles/volume) 140 mmol/L 135-145 Serum or plasma potassium measurement (moles/volume) 4.5 mmol/L 3.6-5.0 Serum or plasma chloride measurement (moles/volume) 107 mmol/L 98-107 Carbon dioxide 23 mmol/L 21-32 Serum or plasma anion gap determination (moles/volume) 10 mmol/L 5-14 Serum or plasma urea nitrogen measurement (mass/volume ) 24 mg/dL 7-18 Serum or plasma creatinine measurement (mass/volume) 1.19 mg/dL 0.60-1.30 Serum or plasma urea nitrogen/creatinine mass ratio 20 NRG Serum or plasma creatinine measurement w ith calculation of estimated glomerular filtration rate 47 NRG Serum or plasma glucose measurement (mass/volume) 90 mg/dL 70-105 Serum or plasma calcium measurement (mass/volume) 8.5 mg/dL 8.5-10.1 Serum or plasma total bilirubin measurement (mass/volu me) 0.2 mg/dL 0.1-1.0 Serum or plasma alkaline phosphatase lorenzo surement (enzymatic activity/volume) 60 U/L 40-136 Serum or plasma aspartate aminotransfera se measurement (enzymatic activity/volume) 16 U/L 5-34 Serum or plasma alanine aminotransferase measurement (enzymatic activity/volume) 23 U/L 0-55 Serum or plasma protein measurement (mass/volume) 6.9 g/dL 6.4-8.2 Serum or plasma albumin measurement (mass/volume) 3.6 g/dL 3.2-4.5 CALCIUM CORRECTED 8.8 mg/dL 8.5-10.1 Complete blood count (CBC) with automate d white blood cell (WBC) differential - 07/07/19 07:00 Blood leukocytes automated count (number/volume) 6.3 10*3/uL 4.3-11.0 Blood erythrocytes automated count (number/volume) 4.16 10*6/uL 4.35-5.85 Venous blood hemoglobin measurement (mass/volume) 12.0 g/dL 11.5-16.0 Blood hematocrit (volume fraction) 38 % 35-52 Automated erythrocyte mean corpuscular volume 91 [ foz_us] 80-99 Automated erythrocyte mean corpuscular h emoglobin (mass per erythrocyte) 29 pg 25-34 Automated erythrocyte mean corpuscular h emoglobin concentration measurement (mass/volume) 32 g/dL 32-36 Automated erythrocyte distribution width ratio 15. 7 % 10.0- 14.5 Automated blood platelet count (count/volume) 399 10*3/uL 130-400 Automated blood platelet mean volume measurement 10.4 [foz_us] 7.4-10.4 Automated blood neutrophils/100 leukocytes 55 % 42-75 Automated blood lymphocytes/100 leukocytes 35 % 12-44 Blood monocytes/100 leukocytes 5 % 0-12 Automated blood eosinophils/100 leukocytes 4 % 0-10 Automated blood basophils/100 leukocytes 1 % 0-10 Blood neutrophils automated count (number/volume) 3.5 10*3 1.8-7.8 Blood lymphocytes automated count (number/volume) 2.2 10*3 1.0-4.0 Blood monocytes automated count (number/volume) 0. 3 10*3 0.0-1.0 Automated eosinophil count 0.3 10*3/uL 0 .0-0.3 Automated blood basophil count (count/volume) 0.0 10*3/uL 0.0-0.1 Blood lactic acid measurement (moles/vol ume) - 07/07/19 07:00 Blood lactic acid measurement (moles/volume) 1.48 mmol/L 0.50-2.00 PT panel in platelet poor plasma by coag ulation assay - 07/07/19 07:00 Prothrombin time (PT) in platelet poor plasma by coagu lation assay 12.0 s 12.2-14.7 INR in platelet poor plasma or blood by coagulation as say 0.9 0.8-1.4 Activated partial thromboplastin time (a PTT) in platelet poor plasma bycoagulation assay - 07/07/19 07:00 Activated partial thromboplastin time (a PTT) in platelet poor plasma bycoagulation assay 36 s 24-35 Comprehensive metabolic panel - 07/07/19 07:00 Serum or plasma sodium measurement (moles/volume) 135 mmol/L 135-145 Serum or plasma potassium measurement (moles/volume) 6.1 mmol/L 3.6-5.0 Serum or plasma chloride measurement (moles/volume) 109 mmol/L 98-107 Carbon dioxide 16 mmol/L 21-32 Serum or plasma anion gap determination (moles/volume) 10 mmol/L 5-14 Serum or plasma urea nitrogen measurement (mass/volume ) 41 mg/dL 7-18 Serum or plasma creatinine measurement (mass/volume) 1.68 mg/dL 0.60-1.30 Serum or plasma urea nitrogen/creatinine mass ratio 24 NRG Serum or plasma creatinine measurement w ith calculation of estimated glomerular filtration rate 31 NRG Serum or plasma glucose measurement (mass/volume) 107 mg/dL 70-105 Serum or plasma calcium measurement (mass/volume) 9.2 mg/dL 8.5-10.1 Serum or plasma total bilirubin measurement (mass/volu me) 0.1 mg/dL 0.1-1.0 Serum or plasma alkaline phosphatase lorenzo surement (enzymatic activity/volume) 61 U/L 40-136 Serum or plasma aspartate aminotransfera se measurement (enzymatic activity/volume) 16 U/L 5-34 Serum or plasma alanine aminotransferase measurement (enzymatic activity/volume) 21 U/L 0-55 Serum or plasma protein measurement (mass/volume) 7.7 g/dL 6.4-8.2 Serum or plasma albumin measurement (mass/volume) 4.0 g/dL 3.2-4.5 CALCIUM CORRECTED 9.2 mg/dL 8.5-10.1 Magnesium - 07/07/19 07:00 Magnesium 1.9 mg/dL 1.6-2.4 Serum or plasma troponin i.cardiac measu rement (mass/volume) - 07/07/19 07:00 Serum or plasma troponin i.cardiac measurement (mass/v olume) 0.138 ng/mL <0.028 Myoglobin, serum - 07/07/19 07:00 Myoglobin, serum 55.8 ng/mL 10.0-92.0 Serum or plasma lithium measurement (mol es/volume) - 07/07/19 07:00 BNP PT 92.6 pg/mL <100.0 Bacterial blood culture - 07/07/19 07:00 Bacterial blood culture NG NRG Bacterial blood culture - 07/07/19 07:41 Bacterial blood culture NG NRG Complete urinalysis with reflex to cultu re - 07/07/19 10:50 Urine color determination YELLOW NRG Urine clarity determination CLEAR NR G Urine pH measurement by test strip 5 5-9 Specific gravity of urine by test strip 1.020 1.016-1.022 Urine protein assay by test strip, semi-quantitative 2+ NEGATIVE Urine glucose detection by automated test strip NE GATIVE NEGATIVE Erythrocytes detection in urine sediment by light micr oscopy NEGATIVE NEGATIVE Urine ketones detection by automated test strip NE GATIVE NEGATIVE Urine nitrite detection by test strip NEGATIVE NEGATIVE Urine total bilirubin detection by test strip NEGA TIVE NEGATIVE Urine urobilinogen measurement by automated test strip (mass/volume) NORMAL NORMAL Urine leukocyte esterase detection by dipstick 2+ NEGATIVE Automated urine sediment erythrocyte cou nt by microscopy (number/high power field) NONE NRG Automated urine sediment leukocyte count by microscopy (number/high power field) [HPF] NRG Bacteria detection in urine sediment by light microsco py MODERATE NRG Squamous epithelial cells detection in u rine sediment by light microscopy 25-50 NRG Crystals detection in urine sediment by light microsco py PRESENT NRG Casts detection in urine sediment by light microscopy NONE NRG Mucus detection in urine sediment by light microscopy NEGATIVE NRG Complete urinalysis with reflex to culture YES NRG Amorphous sediment detection in urine sediment by ligh t microscopy RARE SABRA URATES NRG Bacterial urine culture - 07/07/19 10:50 Bacterial urine culture 3 OR MORE NRG COLONY COUNT 60,000 cfu/ml NRG FTX;REPORTABLE GRAM POSITIVES, SUGGESTING PROBABLE NRG FREE TEXT ENTRY 2 COLLECTION CONTAMINATION WITH SK IN JANICE NRG FREE TEXT ENTRY 3 NO SUSCEPTIBILITY PERFORMED NRG Serum or plasma troponin i.cardiac measu rement (mass/volume) - 07/07/19 11:15 Serum or plasma troponin i.cardiac measurement (mass/v olume) 0.123 ng/mL <0.028 Complete urinalysis with reflex to cultu re - 07/07/19 23:55 Urine color determination YELLOW NRG Urine clarity determination CLEAR NR G Urine pH measurement by test strip 5 5-9 Specific gravity of urine by test strip 1.010 1.016-1.022 Urine protein assay by test strip, semi-quantitative NEGATIVE NEGATIVE Urine glucose detection by automated test strip 1+ NEGATIVE Erythrocytes detection in urine sediment by light micr oscopy NEGATIVE NEGATIVE Urine ketones detection by automated test strip NE GATIVE NEGATIVE Urine nitrite detection by test strip NEGATIVE NEGATIVE Urine total bilirubin detection by test strip NEGA TIVE NEGATIVE Urine urobilinogen measurement by automated test strip (mass/volume) NORMAL NORMAL Urine leukocyte esterase detection by dipstick NEG ATIVE NEGATIVE Automated urine sediment erythrocyte cou nt by microscopy (number/high power field) NONE NRG Automated urine sediment leukocyte count by microscopy (number/high power field) NONE NRG Bacteria detection in urine sediment by light microsco py TRACE NRG Squamous epithelial cells detection in u rine sediment by light microscopy 0-2 NRG Crystals detection in urine sediment by light microsco py NONE NRG Casts detection in urine sediment by light microscopy NONE NRG Mucus detection in urine sediment by light microscopy NEGATIVE NRG Complete urinalysis with reflex to culture NO NRG Complete blood count (CBC) with automate d white blood cell (WBC) differential - 07/08/19 04:27 Blood leukocytes automated count (number/volume) 5.4 10*3/uL 4.3-11.0 Blood erythrocytes automated count (number/volume) 3.93 10*6/uL 4.35-5.85 Venous blood hemoglobin measurement (mass/volume) 11.4 g/dL 11.5-16.0 Blood hematocrit (volume fraction) 36 % 35-52 Automated erythrocyte mean corpuscular volume 93 [ foz_us] 80-99 Automated erythrocyte mean corpuscular h emoglobin (mass per erythrocyte) 29 pg 25-34 Automated erythrocyte mean corpuscular h emoglobin concentration measurement (mass/volume) 31 g/dL 32-36 Automated erythrocyte distribution width ratio 15. 6 % 10.0- 14.5 Automated blood platelet count (count/volume) 390 10*3/uL 130-400 Automated blood platelet mean volume measurement 9.8 [foz_us] 7.4-10.4 Automated blood neutrophils/100 leukocytes 44 % 42-75 Automated blood lymphocytes/100 leukocytes 42 % 12-44 Blood monocytes/100 leukocytes 7 % 0-12 Automated blood eosinophils/100 leukocytes 7 % 0-10 Automated blood basophils/100 leukocytes 0 % 0-10 Blood neutrophils automated count (number/volume) 2.4 10*3 1.8-7.8 Blood lymphocytes automated count (number/volume) 2.3 10*3 1.0-4.0 Blood monocytes automated count (number/volume) 0. 4 10*3 0.0-1.0 Automated eosinophil count 0.4 10*3/uL 0 .0-0.3 Automated blood basophil count (count/volume) 0.0 10*3/uL 0.0-0.1 Lipid 1996 panel - 07/08/19 04:27 Serum or plasma triglyceride measurement (mass/volume) 230 mg/dL <150 Serum or plasma cholesterol measurement (mass/volume) 170 mg/dL < 200 Serum or plasma cholesterol in HDL measurement (mass/v olume) 45 mg/dL 40-60 Cholesterol in LDL [mass/volume] in serum or plasma by direct assay 72 mg/dL 1-129 Serum or plasma cholesterol in VLDL measurement (mass/ volume) 46 mg/dL 5-40 Comprehensive metabolic panel - 07/08/19 04:27 Serum or plasma sodium measurement (moles/volume) 136 mmol/L 135-145 Serum or plasma potassium measurement (moles/volume) 5.5 mmol/L 3.6-5.0 Serum or plasma chloride measurement (moles/volume) 112 mmol/L 98-107 Carbon dioxide 19 mmol/L 21-32 Serum or plasma anion gap determination (moles/volume) 5 mmol/L 5-14 Serum or plasma urea nitrogen measurement (mass/volume ) 30 mg/dL 7-18 Serum or plasma creatinine measurement (mass/volume) 1.31 mg/dL 0.60-1.30 Serum or plasma urea nitrogen/creatinine mass ratio 23 NRG Serum or plasma creatinine measurement w ith calculation of estimated glomerular filtration rate 42 NRG Serum or plasma glucose measurement (mass/volume) 84 mg/dL 70-105 Serum or plasma calcium measurement (mass/volume) 8.2 mg/dL 8.5-10.1 Serum or plasma total bilirubin measurement (mass/volu me) 0.2 mg/dL 0.1-1.0 Serum or plasma alkaline phosphatase lorenzo surement (enzymatic activity/volume) 66 U/L 40-136 Serum or plasma aspartate aminotransfera se measurement (enzymatic activity/volume) 11 U/L 5-34 Serum or plasma alanine aminotransferase measurement (enzymatic activity/volume) 15 U/L 0-55 Serum or plasma protein measurement (mass/volume) 6.7 g/dL 6.4-8.2 Serum or plasma albumin measurement (mass/volume) 3.5 g/dL 3.2-4.5 CALCIUM CORRECTED 8.6 mg/dL 8.5-10.1 Complete blood count (CBC) with automate d white blood cell (WBC) differential - 07/09/19 04:45 Blood leukocytes automated count (number/volume) 3.1 10*3/uL 4.3-11.0 Blood erythrocytes automated count (number/volume) 3.46 10*6/uL 4.35-5.85 Venous blood hemoglobin measurement (mass/volume) 10.1 g/dL 11.5-16.0 Blood hematocrit (volume fraction) 32 % 35-52 Automated erythrocyte mean corpuscular volume 93 [ foz_us] 80-99 Automated erythrocyte mean corpuscular h emoglobin (mass per erythrocyte) 29 pg 25-34 Automated erythrocyte mean corpuscular h emoglobin concentration measurement (mass/volume) 32 g/dL 32-36 Automated erythrocyte distribution width ratio 15. 1 % 10.0- 14.5 Automated blood platelet count (count/volume) 338 10*3/uL 130-400 Automated blood platelet mean volume measurement 9.7 [foz_us] 7.4-10.4 Automated blood neutrophils/100 leukocytes 37 % 42-75 Automated blood lymphocytes/100 leukocytes 46 % 12-44 Blood monocytes/100 leukocytes 7 % 0-12 Automated blood eosinophils/100 leukocytes 9 % 0-10 Automated blood basophils/100 leukocytes 0 % 0-10 Blood neutrophils automated count (number/volume) 1.2 10*3 1.8-7.8 Blood lymphocytes automated count (number/volume) 1.4 10*3 1.0-4.0 Blood monocytes automated count (number/volume) 0. 2 10*3 0.0-1.0 Automated eosinophil count 0.3 10*3/uL 0 .0-0.3 Automated blood basophil count (count/volume) 0.0 10*3/uL 0.0-0.1 Comprehensive metabolic panel - 07/09/19 04:45 Serum or plasma sodium measurement (moles/volume) 141 mmol/L 135-145 Serum or plasma potassium measurement (moles/volume) 5.2 mmol/L 3.6-5.0 Serum or plasma chloride measurement (moles/volume) 118 mmol/L 98-107 Carbon dioxide 16 mmol/L 21-32 Serum or plasma anion gap determination (moles/volume) 7 mmol/L 5-14 Serum or plasma urea nitrogen measurement (mass/volume ) 20 mg/dL 7-18 Serum or plasma creatinine measurement (mass/volume) 1.05 mg/dL 0.60-1.30 Serum or plasma urea nitrogen/creatinine mass ratio 19 NRG Serum or plasma creatinine measurement w ith calculation of estimated glomerular filtration rate 54 NRG Serum or plasma glucose measurement (mass/volume) 77 mg/dL 70-105 Serum or plasma calcium measurement (mass/volume) 8.0 mg/dL 8.5-10.1 Serum or plasma total bilirubin measurement (mass/volu me) 0.2 mg/dL 0.1-1.0 Serum or plasma alkaline phosphatase lorenzo surement (enzymatic activity/volume) 59 U/L 40-136 Serum or plasma aspartate aminotransfera se measurement (enzymatic activity/volume) 11 U/L 5-34 Serum or plasma alanine aminotransferase measurement (enzymatic activity/volume) 17 U/L 0-55 Serum or plasma protein measurement (mass/volume) 6.1 g/dL 6.4-8.2 Serum or plasma albumin measurement (mass/volume) 3.4 g/dL 3.2-4.5 CALCIUM CORRECTED 8.5 mg/dL 8.5-10.1 Complete blood count (CBC) with automate d white blood cell (WBC) differential - 07/10/19 06:50 Blood leukocytes automated count (number/volume) 4.0 10*3/uL 4.3-11.0 Blood erythrocytes automated count (number/volume) 3.42 10*6/uL 4.35-5.85 Venous blood hemoglobin measurement (mass/volume) 10.0 g/dL 11.5-16.0 Blood hematocrit (volume fraction) 31 % 35-52 Automated erythrocyte mean corpuscular volume 90 [ foz_us] 80-99 Automated erythrocyte mean corpuscular h emoglobin (mass per erythrocyte) 29 pg 25-34 Automated erythrocyte mean corpuscular h emoglobin concentration measurement (mass/volume) 32 g/dL 32-36 Automated erythrocyte distribution width ratio 14. 9 % 10.0- 14.5 Automated blood platelet count (count/volume) 334 10*3/uL 130-400 Automated blood platelet mean volume measurement 9.7 [foz_us] 7.4-10.4 Automated blood neutrophils/100 leukocytes 44 % 42-75 Automated blood lymphocytes/100 leukocytes 41 % 12-44 Blood monocytes/100 leukocytes 8 % 0-12 Automated blood eosinophils/100 leukocytes 7 % 0-10 Automated blood basophils/100 leukocytes 1 % 0-10 Blood neutrophils automated count (number/volume) 1.8 10*3 1.8-7.8 Blood lymphocytes automated count (number/volume) 1.6 10*3 1.0-4.0 Blood monocytes automated count (number/volume) 0. 3 10*3 0.0-1.0 Automated eosinophil count 0.3 10*3/uL 0 .0-0.3 Automated blood basophil count (count/volume) 0.0 10*3/uL 0.0-0.1 Comprehensive metabolic panel - 07/10/19 06:50 Serum or plasma sodium measurement (moles/volume) 139 mmol/L 135-145 Serum or plasma potassium measurement (moles/volume) 5.5 mmol/L 3.6-5.0 Serum or plasma chloride measurement (moles/volume) 112 mmol/L 98-107 Carbon dioxide 22 mmol/L 21-32 Serum or plasma anion gap determination (moles/volume) 5 mmol/L 5-14 Serum or plasma urea nitrogen measurement (mass/volume ) 29 mg/dL 7-18 Serum or plasma creatinine measurement (mass/volume) 1.23 mg/dL 0.60-1.30 Serum or plasma urea nitrogen/creatinine mass ratio 24 NRG Serum or plasma creatinine measurement w ith calculation of estimated glomerular filtration rate 45 NRG Serum or plasma glucose measurement (mass/volume) 88 mg/dL 70-105 Serum or plasma calcium measurement (mass/volume) 8.7 mg/dL 8.5-10.1 Serum or plasma total bilirubin measurement (mass/volu me) 0.2 mg/dL 0.1-1.0 Serum or plasma alkaline phosphatase lorenzo surement (enzymatic activity/volume) 75 U/L 40-136 Serum or plasma aspartate aminotransfera se measurement (enzymatic activity/volume) 13 U/L 5-34 Serum or plasma alanine aminotransferase measurement (enzymatic activity/volume) 15 U/L 0-55 Serum or plasma protein measurement (mass/volume) 6.7 g/dL 6.4-8.2 Serum or plasma albumin measurement (mass/volume) 3.5 g/dL 3.2-4.5 CALCIUM CORRECTED 9.1 mg/dL 8.5-10.1 Complete blood count (CBC) with automate d white blood cell (WBC) differential - 08/12/19 05:50 Blood leukocytes automated count (number/volume) 9.9 10*3/uL 4.3-11.0 Blood erythrocytes automated count (number/volume) 3.74 10*6/uL 4.35-5.85 Venous blood hemoglobin measurement (mass/volume) 10.9 g/dL 11.5-16.0 Blood hematocrit (volume fraction) 34 % 35-52 Automated erythrocyte mean corpuscular volume 90 [ foz_us] 80-99 Automated erythrocyte mean corpuscular h emoglobin (mass per erythrocyte) 29 pg 25-34 Automated erythrocyte mean corpuscular h emoglobin concentration measurement (mass/volume) 32 g/dL 32-36 Automated erythrocyte distribution width ratio 14. 7 % 10.0- 14.5 Automated blood platelet count (count/volume) 321 10*3/uL 130-400 Automated blood platelet mean volume measurement 10.4 [foz_us] 7.4-10.4 Automated blood neutrophils/100 leukocytes 84 % 42-75 Automated blood lymphocytes/100 leukocytes 13 % 12-44 Blood monocytes/100 leukocytes 2 % 0-12 Automated blood eosinophils/100 leukocytes 1 % 0-10 Automated blood basophils/100 leukocytes 0 % 0-10 Blood neutrophils automated count (number/volume) 8.3 10*3 1.8-7.8 Blood lymphocytes automated count (number/volume) 1.3 10*3 1.0-4.0 Blood monocytes automated count (number/volume) 0. 2 10*3 0.0-1.0 Automated eosinophil count 0.1 10*3/uL 0 .0-0.3 Automated blood basophil count (count/volume) 0.0 10*3/uL 0.0-0.1 PT panel in platelet poor plasma by coag ulation assay - 08/12/19 05:50 Prothrombin time (PT) in platelet poor plasma by coagu lation assay 12.2 s 12.2-14.7 INR in platelet poor plasma or blood by coagulation as say 0.9 0.8-1.4 Activated partial thromboplastin time (a PTT) in platelet poor plasma bycoagulation assay - 08/12/19 05:50 Activated partial thromboplastin time (a PTT) in platelet poor plasma bycoagulation assay 37 s 24-35 Comprehensive metabolic panel - 08/12/19 05:50 Serum or plasma sodium measurement (moles/volume) 136 mmol/L 135-145 Serum or plasma potassium measurement (moles/volume) 4.9 mmol/L 3.6-5.0 Serum or plasma chloride measurement (moles/volume) 102 mmol/L 98-107 Carbon dioxide 20 mmol/L 21-32 Serum or plasma anion gap determination (moles/volume) 14 mmol/L 5-14 Serum or plasma urea nitrogen measurement (mass/volume ) 69 mg/dL 7-18 Serum or plasma creatinine measurement (mass/volume) 2.55 mg/dL 0.60-1.30 Serum or plasma urea nitrogen/creatinine mass ratio 27 NRG Serum or plasma creatinine measurement w ith calculation of estimated glomerular filtration rate 19 NRG Serum or plasma glucose measurement (mass/volume) 144 mg/dL 70-105 Serum or plasma calcium measurement (mass/volume) 8.5 mg/dL 8.5-10.1 Serum or plasma total bilirubin measurement (mass/volu me) 0.2 mg/dL 0.1-1.0 Serum or plasma alkaline phosphatase lorenzo surement (enzymatic activity/volume) 78 U/L 40-136 Serum or plasma aspartate aminotransfera se measurement (enzymatic activity/volume) 15 U/L 5-34 Serum or plasma alanine aminotransferase measurement (enzymatic activity/volume) 17 U/L 0-55 Serum or plasma protein measurement (mass/volume) 7.5 g/dL 6.4-8.2 Serum or plasma albumin measurement (mass/volume) 4.1 g/dL 3.2-4.5 CALCIUM CORRECTED 8.4 mg/dL 8.5-10.1 Magnesium - 08/12/19 05:50 Magnesium 2.5 mg/dL 1.6-2.4 Serum or plasma troponin i.cardiac measu rement (mass/volume) - 08/12/19 05:50 Serum or plasma troponin i.cardiac measurement (mass/v olume) 0.406 ng/mL <0.028 Ammonia - 08/12/19 05:50 Ammonia 30 umol/L 11-32 Serum or plasma C reactive protein measu rement (mass/volume) - 08/12/19 05:50 Serum or plasma C reactive protein measurement (mass/v olume) 0.18 mg/dL 0.00-0.50 Serum or plasma salicylates measurement (mass/volume) - 08/12/19 05:50 Serum or plasma salicylates measurement (mass/volume) < mg/dL 5.0-20.0 Serum or plasma acetaminophen measuremen t (mass/volume) - 08/12/19 05:50 Serum or plasma acetaminophen measurement (mass/volume ) < ug/mL 10-30 Serum or plasma ethanol measurement (mas s/volume) - 08/12/19 05:50 Serum or plasma ethanol measurement (mass/volume) < mg/dL <10 PHENOBARBITAL - 08/12/19 05:50 [id number] 11.7 % 15.0-40.0 Urine drug screening test - 08/12/19 06: 13 Urine phencyclidine detection by screening method NEGATIVE NEGATIVE Urine benzodiazepines detection by screening method NEGATIVE NEGATIVE Urine cocaine detection NEGATIVE NEGATI VE Urine amphetamines detection by screening method N EGATIVE NEGATIVE Urine methamphetamine detection by screening method NEGATIVE NEGATIVE Urine cannabinoids detection by screening method N EGATIVE NEGATIVE Urine opiates detection by screening method NEGATI VE NEGATIVE Urine barbiturates detection POSITIVE N EGATIVE Screening urine tricyclic antidepressants detection NEGATIVE NEGATIVE Urine methadone detection by screening method NEGA TIVE NEGATIVE Urine oxycodone detection NEGATIVE NEGA TIVE Urine propoxyphene detection NEGATIVE N EGATIVE Complete urinalysis with reflex to cultu re - 08/12/19 06:13 Urine color determination YELLOW NRG Urine clarity determination CLEAR NR G Urine pH measurement by test strip 6.5 5-9 Specific gravity of urine by test strip 1.015 1.016-1.022 Urine protein assay by test strip, semi-quantitative 2+ NEGATIVE Urine glucose detection by automated test strip 1+ NEGATIVE Erythrocytes detection in urine sediment by light micr oscopy NEGATIVE NEGATIVE Urine ketones detection by automated test strip NE GATIVE NEGATIVE Urine nitrite detection by test strip NEGATIVE NEGATIVE Urine total bilirubin detection by test strip NEGA TIVE NEGATIVE Urine urobilinogen measurement by automated test strip (mass/volume) NORMAL NORMAL Urine leukocyte esterase detection by dipstick NEG ATIVE NEGATIVE Automated urine sediment erythrocyte cou nt by microscopy (number/high power field) NONE NRG Automated urine sediment leukocyte count by microscopy (number/high power field) RARE NRG Bacteria detection in urine sediment by light microsco py NEGATIVE NRG Squamous epithelial cells detection in u rine sediment by light microscopy RARE NRG Crystals detection in urine sediment by light microsco py NONE NRG Casts detection in urine sediment by light microscopy NONE NRG Mucus detection in urine sediment by light microscopy NEGATIVE NRG Complete urinalysis with reflex to culture NO NRG Influenza virus A and B antigen detectio n - 08/12/19 07:55 FLU RESULT NEGATIVE FOR INFLUENZA A AND B ANTIGENS BY IA NRG Serum or plasma troponin i.cardiac measu rement (mass/volume) - 08/12/19 12:34 Serum or plasma troponin i.cardiac measurement (mass/v olume) 0.342 ng/mL <0.028 Arterial blood gas measurement - 9 13:20 Blood pCO2 43 mm[Hg] 35-45 Blood pO2 58 mm[Hg] 79-93 Arterial blood bicarbonate measurement (moles/volume) 21 mmol/L 23-27 Arterial blood base excess by calculation -4.1 mmo l/L -2.5-2.5 Arterial blood oxygen saturation measurement 89 % 94-100 * Inhaled oxygen flow rate 2 NRG Arterial blood pH measurement with patient temperature correction 7.31 7.37-7.43 Arterial blood carbon dioxide, total measurement (mole s/volume) 22.6 mmol/L 21.0-31.0 Body site L RADIAL NRG Assessment of wrist artery patency prior to arterial p uncture YES-POS NRG Setting of ventilation mode NO NR G Measurement of body temperature 36.2 NRG Methicillin resistant Staphylococcus aur eus (MRSA) screening culture - 08/12/19 13:40 Methicillin resistant Staphylococcus aureus (MRSA) scr eening culture NEG NRG Capillary blood glucose measurement by g lucometer (mass/volume) - 08/12/19 14:14 Capillary blood glucose measurement by glucometer (mas s/volume) 101 mg/dL 70-110 Capillary blood glucose measurement by g lucometer (mass/volume) - 08/12/19 18:02 Capillary blood glucose measurement by glucometer (mas s/volume) 92 mg/dL 70-110 Serum or plasma troponin i.cardiac measu rement (mass/volume) - 08/12/19 18:30 Serum or plasma troponin i.cardiac measurement (mass/v olume) 0.324 ng/mL <0.028 Complete blood count (CBC) with automate d white blood cell (WBC) differential - 08/13/19 03:25 Blood leukocytes automated count (number/volume) 9.2 10*3/uL 4.3-11.0 Blood erythrocytes automated count (number/volume) 3.82 10*6/uL 4.35-5.85 Venous blood hemoglobin measurement (mass/volume) 11.1 g/dL 11.5-16.0 Blood hematocrit (volume fraction) 35 % 35-52 Automated erythrocyte mean corpuscular volume 92 [ foz_us] 80-99 Automated erythrocyte mean corpuscular h emoglobin (mass per erythrocyte) 29 pg 25-34 Automated erythrocyte mean corpuscular h emoglobin concentration measurement (mass/volume) 31 g/dL 32-36 Automated erythrocyte distribution width ratio 15. 3 % 10.0- 14.5 Automated blood platelet count (count/volume) 302 10*3/uL 130-400 Automated blood platelet mean volume measurement 10.4 [foz_us] 7.4-10.4 Automated blood neutrophils/100 leukocytes 70 % 42-75 Automated blood lymphocytes/100 leukocytes 22 % 12-44 Blood monocytes/100 leukocytes 7 % 0-12 Automated blood eosinophils/100 leukocytes 2 % 0-10 Automated blood basophils/100 leukocytes 0 % 0-10 Blood neutrophils automated count (number/volume) 6.4 10*3 1.8-7.8 Blood lymphocytes automated count (number/volume) 2.0 10*3 1.0-4.0 Blood monocytes automated count (number/volume) 0. 6 10*3 0.0-1.0 Automated eosinophil count 0.2 10*3/uL 0 .0-0.3 Automated blood basophil count (count/volume) 0.0 10*3/uL 0.0-0.1 Whole blood basic metabolic panel - 10/31 03:25 Serum or plasma sodium measurement (moles/volume) 138 mmol/L 135-145 Serum or plasma potassium measurement (moles/volume) 5.3 mmol/L 3.6-5.0 Serum or plasma chloride measurement (moles/volume) 116 mmol/L 98-107 Carbon dioxide 14 mmol/L 21-32 Serum or plasma anion gap determination (moles/volume) 8 mmol/L 5-14 Serum or plasma urea nitrogen measurement (mass/volume ) 59 mg/dL 7-18 Serum or plasma creatinine measurement (mass/volume) 1.94 mg/dL 0.60-1.30 Serum or plasma urea nitrogen/creatinine mass ratio 30 NRG Serum or plasma creatinine measurement w ith calculation of estimated glomerular filtration rate 27 NRG Serum or plasma glucose measurement (mass/volume) 77 mg/dL 70-105 Serum or plasma calcium measurement (mass/volume) 8.0 mg/dL 8.5-10.1 Serum or plasma phosphate measurement (m ass/volume) - 08/13/19 03:25 Serum or plasma phosphate measurement (mass/volume) 4.9 mg/dL 2.3-4.7 Magnesium - 08/13/19 03:25 Magnesium 2.4 mg/dL 1.6-2.4 Capillary blood glucose measurement by g lucometer (mass/volume) - 08/13/19 11:32 Capillary blood glucose measurement by glucometer (mas s/volume) 75 mg/dL 70-110 Capillary blood glucose measurement by g lucometer (mass/volume) - 08/13/19 14:26 Capillary blood glucose measurement by glucometer (mas s/volume) 79 mg/dL 70-110 Capillary blood glucose measurement by g lucometer (mass/volume) - 08/13/19 17:59 Capillary blood glucose measurement by glucometer (mas s/volume) 69 mg/dL 70-110 Capillary blood glucose measurement by g lucometer (mass/volume) - 08/14/19 00:17 Capillary blood glucose measurement by glucometer (mas s/volume) 95 mg/dL 70-110 Complete blood count (CBC) with automate d white blood cell (WBC) differential - 08/14/19 03:40 Blood leukocytes automated count (number/volume) 5.2 10*3/uL 4.3-11.0 Blood erythrocytes automated count (number/volume) 3.52 10*6/uL 4.35-5.85 Venous blood hemoglobin measurement (mass/volume) 10.2 g/dL 11.5-16.0 Blood hematocrit (volume fraction) 33 % 35-52 Automated erythrocyte mean corpuscular volume 92 [ foz_us] 80-99 Automated erythrocyte mean corpuscular h emoglobin (mass per erythrocyte) 29 pg 25-34 Automated erythrocyte mean corpuscular h emoglobin concentration measurement (mass/volume) 31 g/dL 32-36 Automated erythrocyte distribution width ratio 14. 5 % 10.0- 14.5 Automated blood platelet count (count/volume) 202 10*3/uL 130-400 Automated blood platelet mean volume measurement 11.1 [foz_us] 7.4-10.4 Automated blood neutrophils/100 leukocytes 65 % 42-75 Automated blood lymphocytes/100 leukocytes 26 % 12-44 Blood monocytes/100 leukocytes 6 % 0-12 Automated blood eosinophils/100 leukocytes 3 % 0-10 Automated blood basophils/100 leukocytes 0 % 0-10 Blood neutrophils automated count (number/volume) 3.4 10*3 1.8-7.8 Blood lymphocytes automated count (number/volume) 1.4 10*3 1.0-4.0 Blood monocytes automated count (number/volume) 0. 3 10*3 0.0-1.0 Automated eosinophil count 0.2 10*3/uL 0 .0-0.3 Automated blood basophil count (count/volume) 0.0 10*3/uL 0.0-0.1 Whole blood basic metabolic panel - 12/01 03:40 Serum or plasma sodium measurement (moles/volume) 142 mmol/L 135-145 Serum or plasma potassium measurement (moles/volume) 5.2 mmol/L 3.6-5.0 Serum or plasma chloride measurement (moles/volume) 116 mmol/L 98-107 Carbon dioxide 17 mmol/L 21-32 Serum or plasma anion gap determination (moles/volume) 9 mmol/L 5-14 Serum or plasma urea nitrogen measurement (mass/volume ) 36 mg/dL 7-18 Serum or plasma creatinine measurement (mass/volume) 1.38 mg/dL 0.60-1.30 Serum or plasma urea nitrogen/creatinine mass ratio 26 NRG Serum or plasma creatinine measurement w ith calculation of estimated glomerular filtration rate 39 NRG Serum or plasma glucose measurement (mass/volume) 89 mg/dL 70-105 Serum or plasma calcium measurement (mass/volume) 8.2 mg/dL 8.5-10.1 Serum or plasma phosphate measurement (m ass/volume) - 08/14/19 03:40 Serum or plasma phosphate measurement (mass/volume) 3.9 mg/dL 2.3-4.7 Magnesium - 08/14/19 03:40 Magnesium 1.9 mg/dL 1.6-2.4 Capillary blood glucose measurement by g lucometer (mass/volume) - 08/14/19 11:40 Capillary blood glucose measurement by glucometer (mas s/volume) 88 mg/dL 70-110 Capillary blood glucose measurement by g lucometer (mass/volume) - 08/14/19 16:26 Capillary blood glucose measurement by glucometer (mas s/volume) 128 mg/dL 70-110 Capillary blood glucose measurement by g lucometer (mass/volume) - 08/14/19 20:41 Capillary blood glucose measurement by glucometer (mas s/volume) 102 mg/dL 70-110 Complete blood count (CBC) with automate d white blood cell (WBC) differential - 08/14/19 23:59 Blood leukocytes automated count (number/volume) 6.8 10*3/uL 4.3-11.0 Blood erythrocytes automated count (number/volume) 2.88 10*6/uL 4.35-5.85 Venous blood hemoglobin measurement (mass/volume) 8.4 g/dL 11.5-16.0 Blood hematocrit (volume fraction) 26 % 35-52 Automated erythrocyte mean corpuscular volume 91 [ foz_us] 80-99 Automated erythrocyte mean corpuscular h emoglobin (mass per erythrocyte) 29 pg 25-34 Automated erythrocyte mean corpuscular h emoglobin concentration measurement (mass/volume) 32 g/dL 32-36 Automated erythrocyte distribution width ratio 14. 6 % 10.0- 14.5 Automated blood platelet count (count/volume) 59 1 0*3/uL 130-400 Automated blood platelet mean volume measurement 10.4 [foz_us] 7.4-10.4 Automated blood neutrophils/100 leukocytes 73 % 42-75 Automated blood lymphocytes/100 leukocytes 20 % 12-44 Blood monocytes/100 leukocytes 5 % 0-12 Automated blood eosinophils/100 leukocytes 2 % 0-10 Automated blood basophils/100 leukocytes 0 % 0-10 Blood neutrophils automated count (number/volume) 4.9 10*3 1.8-7.8 Blood lymphocytes automated count (number/volume) 1.3 10*3 1.0-4.0 Blood monocytes automated count (number/volume) 0. 4 10*3 0.0-1.0 Automated eosinophil count 0.2 10*3/uL 0 .0-0.3 Automated blood basophil count (count/volume) 0.0 10*3/uL 0.0-0.1 Blood lactic acid measurement (moles/vol ume) - 08/14/19 23:59 Blood lactic acid measurement (moles/volume) 0.84 mmol/L 0.50-2.00 Comprehensive metabolic panel - 08/14/19 23:59 Serum or plasma sodium measurement (moles/volume) 139 mmol/L 135-145 Serum or plasma potassium measurement (moles/volume) 4.5 mmol/L 3.6-5.0 Serum or plasma chloride measurement (moles/volume) 108 mmol/L 98-107 Carbon dioxide 20 mmol/L 21-32 Serum or plasma anion gap determination (moles/volume) 11 mmol/L 5-14 Serum or plasma urea nitrogen measurement (mass/volume ) 38 mg/dL 7-18 Serum or plasma creatinine measurement (mass/volume) 1.22 mg/dL 0.60-1.30 Serum or plasma urea nitrogen/creatinine mass ratio 31 NRG Serum or plasma creatinine measurement w ith calculation of estimated glomerular filtration rate 45 NRG Serum or plasma glucose measurement (mass/volume) 101 mg/dL 70-105 Serum or plasma calcium measurement (mass/volume) 8.8 mg/dL 8.5-10.1 Serum or plasma total bilirubin measurement (mass/volu me) 0.3 mg/dL 0.1-1.0 Serum or plasma alkaline phosphatase lorenzo surement (enzymatic activity/volume) 83 U/L 40-136 Serum or plasma aspartate aminotransfera se measurement (enzymatic activity/volume) 16 U/L 5-34 Serum or plasma alanine aminotransferase measurement (enzymatic activity/volume) 15 U/L 0-55 Serum or plasma protein measurement (mass/volume) 6.9 g/dL 6.4-8.2 Serum or plasma albumin measurement (mass/volume) 3.9 g/dL 3.2-4.5 CALCIUM CORRECTED 8.9 mg/dL 8.5-10.1 Magnesium - 08/14/19 23:59 Magnesium 1.7 mg/dL 1.6-2.4 Serum or plasma troponin i.cardiac measu rement (mass/volume) - 08/14/19 23:59 Serum or plasma troponin i.cardiac measurement (mass/v olume) 0.252 ng/mL <0.028 Lipase - 08/14/19 23:59 Lipase 42 U/L 8-78 PROCALCITONIN (PCT) - 08/15/19 00:00 PROCALCITONIN (PCT) 0.04 ng/mL <0.10 Complete urinalysis with reflex to cultu re - 08/15/19 01:10 Urine color determination YELLOW NRG Urine clarity determination CLEAR NR G Urine pH measurement by test strip 7 5-9 Specific gravity of urine by test strip 1.010 1.016-1.022 Urine protein assay by test strip, semi-quantitative 3+ NEGATIVE Urine glucose detection by automated test strip 1+ NEGATIVE Erythrocytes detection in urine sediment by light micr oscopy NEGATIVE NEGATIVE Urine ketones detection by automated test strip NE GATIVE NEGATIVE Urine nitrite detection by test strip NEGATIVE NEGATIVE Urine total bilirubin detection by test strip NEGA TIVE NEGATIVE Urine urobilinogen measurement by automated test strip (mass/volume) NORMAL NORMAL Urine leukocyte esterase detection by dipstick 1+ NEGATIVE Automated urine sediment erythrocyte cou nt by microscopy (number/high power field) [HPF] NRG Automated urine sediment leukocyte count by microscopy (number/high power field) [HPF] NRG Bacteria detection in urine sediment by light microsco py FEW NRG Squamous epithelial cells detection in u rine sediment by light microscopy 0-2 NRG Crystals detection in urine sediment by light microsco py NONE NRG Casts detection in urine sediment by light microscopy NONE NRG Mucus detection in urine sediment by light microscopy NEGATIVE NRG Complete urinalysis with reflex to culture YES NRG Bacterial urine culture - 08/15/19 01:10 Bacterial urine culture [id number] NRG COLONY COUNT 80,000 CFU/ML NRG FTX;REPORTABLE SUSCEPTIBILITY REPORTED 08/19/19 13: 55 NRG Dirithromycin susceptibility test by dis k diffusion - 08/15/19 01:10 Gentamicin susceptibility test by minimum inhibitory c oncentration <= NRG Trimethoprim/sulfamethoxazole susceptibi lity test by minimum inhibitoryconcentration <= NRG Levofloxacin susceptibility test by minimum inhibitory concentration <= NRG Ampicillin susceptibility test by minimum inhibitory c oncentration > NRG Cefazolin susceptibility test by minimum inhibitory co ncentration 2 NRG Ceftriaxone susceptibility test by minimum inhibitory concentration <= NRG Ciprofloxacin susceptibility test by minimum inhibitor y concentration <= NRG Meropenem susceptibility test by minimum inhibitory co ncentration <= NRG Nitrofurantoin susceptibility test by mi nimum inhibitory concentration 64 NRG Amoxicillin and clavulanate potassium susc JOHANA <= NRG Dirithromycin susceptibility test by dis k diffusion - 08/15/19 01:10 Vancomycin susceptibility test by minimum inhibitory c oncentration 1 NRG Levofloxacin susceptibility test by minimum inhibitory concentration <= NRG Ampicillin susceptibility test by minimum inhibitory c oncentration 1 NRG Nitrofurantoin susceptibility test by mi nimum inhibitory concentration <= NRG Linezolid susceptibility test by minimum inhibitory co ncentration <= NRG Daptomycin susc JOHANA 2 NRG Complete blood count (CBC) with automate d white blood cell (WBC) differential - 08/15/19 03:34 Blood leukocytes automated count (number/volume) 7.5 10*3/uL 4.3-11.0 Blood erythrocytes automated count (number/volume) 3.39 10*6/uL 4.35-5.85 Venous blood hemoglobin measurement (mass/volume) 9.8 g/dL 11.5-16.0 Blood hematocrit (volume fraction) 31 % 35-52 Automated erythrocyte mean corpuscular volume 91 [ foz_us] 80-99 Automated erythrocyte mean corpuscular h emoglobin (mass per erythrocyte) 29 pg 25-34 Automated erythrocyte mean corpuscular h emoglobin concentration measurement (mass/volume) 32 g/dL 32-36 Automated erythrocyte distribution width ratio 14. 8 % 10.0- 14.5 Automated blood platelet count (count/volume) 250 10*3/uL 130-400 Automated blood platelet mean volume measurement 10.2 [foz_us] 7.4-10.4 Automated blood neutrophils/100 leukocytes 72 % 42-75 Automated blood lymphocytes/100 leukocytes 20 % 12-44 Blood monocytes/100 leukocytes 6 % 0-12 Automated blood eosinophils/100 leukocytes 1 % 0-10 Automated blood basophils/100 leukocytes 0 % 0-10 Blood neutrophils automated count (number/volume) 5.4 10*3 1.8-7.8 Blood lymphocytes automated count (number/volume) 1.5 10*3 1.0-4.0 Blood monocytes automated count (number/volume) 0. 5 10*3 0.0-1.0 Automated eosinophil count 0.1 10*3/uL 0 .0-0.3 Automated blood basophil count (count/volume) 0.0 10*3/uL 0.0-0.1 Whole blood basic metabolic panel - 12/29 03:34 Serum or plasma sodium measurement (moles/volume) 140 mmol/L 135-145 Serum or plasma potassium measurement (moles/volume) 4.6 mmol/L 3.6-5.0 Serum or plasma chloride measurement (moles/volume) 107 mmol/L 98-107 Carbon dioxide 23 mmol/L 21-32 Serum or plasma anion gap determination (moles/volume) 10 mmol/L 5-14 Serum or plasma urea nitrogen measurement (mass/volume ) 37 mg/dL 7-18 Serum or plasma creatinine measurement (mass/volume) 1.18 mg/dL 0.60-1.30 Serum or plasma urea nitrogen/creatinine mass ratio 31 NRG Serum or plasma creatinine measurement w ith calculation of estimated glomerular filtration rate 47 NRG Serum or plasma glucose measurement (mass/volume) 101 mg/dL 70-105 Serum or plasma calcium measurement (mass/volume) 8.7 mg/dL 8.5-10.1 Serum or plasma phosphate measurement (m ass/volume) - 08/15/19 03:34 Serum or plasma phosphate measurement (mass/volume) 3.7 mg/dL 2.3-4.7 Magnesium - 08/15/19 03:34 Magnesium 1.6 mg/dL 1.6-2.4 Capillary blood glucose measurement by g lucometer (mass/volume) - 08/15/19 11:55 Capillary blood glucose measurement by glucometer (mas s/volume) 92 mg/dL 70-110 Capillary blood glucose measurement by g lucometer (mass/volume) - 08/15/19 15:56 Capillary blood glucose measurement by glucometer (mas s/volume) 109 mg/dL 70-110 Capillary blood glucose measurement by g lucometer (mass/volume) - 08/15/19 21:20 Capillary blood glucose measurement by glucometer (mas s/volume) 104 mg/dL 70-110 Whole blood basic metabolic panel - 01/29 05:35 Serum or plasma sodium measurement (moles/volume) 137 mmol/L 135-145 Serum or plasma potassium measurement (moles/volume) 4.9 mmol/L 3.6-5.0 Serum or plasma chloride measurement (moles/volume) 103 mmol/L 98-107 Carbon dioxide 22 mmol/L 21-32 Serum or plasma anion gap determination (moles/volume) 12 mmol/L 5-14 Serum or plasma urea nitrogen measurement (mass/volume ) 19 mg/dL 7-18 Serum or plasma creatinine measurement (mass/volume) 1.21 mg/dL 0.60-1.30 Serum or plasma urea nitrogen/creatinine mass ratio 16 NRG Serum or plasma creatinine measurement w ith calculation of estimated glomerular filtration rate 46 NRG Serum or plasma glucose measurement (mass/volume) 90 mg/dL 70-105 Serum or plasma calcium measurement (mass/volume) 8.7 mg/dL 8.5-10.1 Serum or plasma phosphate measurement (m ass/volume) - 08/16/19 05:35 Serum or plasma phosphate measurement (mass/volume) 3.6 mg/dL 2.3-4.7 Magnesium - 08/16/19 05:35 Magnesium 1.8 mg/dL 1.6-2.4 Complete blood count (CBC) with automate d white blood cell (WBC) differential - 08/16/19 06:20 Blood leukocytes automated count (number/volume) 7.9 10*3/uL 4.3-11.0 Blood erythrocytes automated count (number/volume) 3.36 10*6/uL 4.35-5.85 Venous blood hemoglobin measurement (mass/volume) 9.8 g/dL 11.5-16.0 Blood hematocrit (volume fraction) 30 % 35-52 Automated erythrocyte mean corpuscular volume 89 [ foz_us] 80-99 Automated erythrocyte mean corpuscular h emoglobin (mass per erythrocyte) 29 pg 25-34 Automated erythrocyte mean corpuscular h emoglobin concentration measurement (mass/volume) 33 g/dL 32-36 Automated erythrocyte distribution width ratio 14. 1 % 10.0- 14.5 Automated blood platelet count (count/volume) 238 10*3/uL 130-400 Automated blood platelet mean volume measurement 10.7 [foz_us] 7.4-10.4 Automated blood neutrophils/100 leukocytes 70 % 42-75 Automated blood lymphocytes/100 leukocytes 22 % 12-44 Blood monocytes/100 leukocytes 6 % 0-12 Automated blood eosinophils/100 leukocytes 2 % 0-10 Automated blood basophils/100 leukocytes 0 % 0-10 Blood neutrophils automated count (number/volume) 5.5 10*3 1.8-7.8 Blood lymphocytes automated count (number/volume) 1.7 10*3 1.0-4.0 Blood monocytes automated count (number/volume) 0. 4 10*3 0.0-1.0 Automated eosinophil count 0.2 10*3/uL 0 .0-0.3 Automated blood basophil count (count/volume) 0.0 10*3/uL 0.0-0.1 Serum or plasma lithium measurement (mol es/volume) - 08/16/19 06:20 BNP PT 1222.5 pg/mL <100.0 Capillary blood glucose measurement by g lucometer (mass/volume) - 08/16/19 11:51 Capillary blood glucose measurement by glucometer (mas s/volume) 85 mg/dL 70-110 Capillary blood glucose measurement by g lucometer (mass/volume) - 08/16/19 15:59 Capillary blood glucose measurement by glucometer (mas s/volume) 103 mg/dL 70-110 Capillary blood glucose measurement by g lucometer (mass/volume) - 08/16/19 21:20 Capillary blood glucose measurement by glucometer (mas s/volume) 165 mg/dL 70-110 Complete blood count (CBC) with automate d white blood cell (WBC) differential - 08/17/19 04:55 Blood leukocytes automated count (number/volume) 3.6 10*3/uL 4.3-11.0 Blood erythrocytes automated count (number/volume) 3.40 10*6/uL 4.35-5.85 Venous blood hemoglobin measurement (mass/volume) 9.7 g/dL 11.5-16.0 Blood hematocrit (volume fraction) 30 % 35-52 Automated erythrocyte mean corpuscular volume 89 [ foz_us] 80-99 Automated erythrocyte mean corpuscular h emoglobin (mass per erythrocyte) 29 pg 25-34 Automated erythrocyte mean corpuscular h emoglobin concentration measurement (mass/volume) 32 g/dL 32-36 Automated erythrocyte distribution width ratio 14. 0 % 10.0- 14.5 Automated blood platelet count (count/volume) 259 10*3/uL 130-400 Automated blood platelet mean volume measurement 10.6 [foz_us] 7.4-10.4 Automated blood neutrophils/100 leukocytes 42 % 42-75 Automated blood lymphocytes/100 leukocytes 44 % 12-44 Blood monocytes/100 leukocytes 6 % 0-12 Automated blood eosinophils/100 leukocytes 7 % 0-10 Automated blood basophils/100 leukocytes 1 % 0-10 Blood neutrophils automated count (number/volume) 1.5 10*3 1.8-7.8 Blood lymphocytes automated count (number/volume) 1.6 10*3 1.0-4.0 Blood monocytes automated count (number/volume) 0. 2 10*3 0.0-1.0 Automated eosinophil count 0.3 10*3/uL 0 .0-0.3 Automated blood basophil count (count/volume) 0.0 10*3/uL 0.0-0.1 Whole blood basic metabolic panel - 02/28 04:55 Serum or plasma sodium measurement (moles/volume) 136 mmol/L 135-145 Serum or plasma potassium measurement (moles/volume) 4.4 mmol/L 3.6-5.0 Serum or plasma chloride measurement (moles/volume) 101 mmol/L 98-107 Carbon dioxide 24 mmol/L 21-32 Serum or plasma anion gap determination (moles/volume) 11 mmol/L 5-14 Serum or plasma urea nitrogen measurement (mass/volume ) 23 mg/dL 7-18 Serum or plasma creatinine measurement (mass/volume) 1.54 mg/dL 0.60-1.30 Serum or plasma urea nitrogen/creatinine mass ratio 15 NRG Serum or plasma creatinine measurement w ith calculation of estimated glomerular filtration rate 35 NRG Serum or plasma glucose measurement (mass/volume) 106 mg/dL 70-105 Serum or plasma calcium measurement (mass/volume) 8.7 mg/dL 8.5-10.1 Serum or plasma phosphate measurement (m ass/volume) - 08/17/19 04:55 Serum or plasma phosphate measurement (mass/volume) 3.8 mg/dL 2.3-4.7 Magnesium - 08/17/19 04:55 Magnesium 1.9 mg/dL 1.6-2.4 Capillary blood glucose measurement by g lucometer (mass/volume) - 08/17/19 11:11 Capillary blood glucose measurement by glucometer (mas s/volume) 110 mg/dL 70-110 Complete blood count (CBC) with automate d white blood cell (WBC) differential - 08/26/19 03:55 Blood leukocytes automated count (number/volume) 5.9 10*3/uL 4.3-11.0 Blood erythrocytes automated count (number/volume) 3.42 10*6/uL 4.35-5.85 Venous blood hemoglobin measurement (mass/volume) 9.8 g/dL 11.5-16.0 Blood hematocrit (volume fraction) 31 % 35-52 Automated erythrocyte mean corpuscular volume 91 [ foz_us] 80-99 Automated erythrocyte mean corpuscular h emoglobin (mass per erythrocyte) 29 pg 25-34 Automated erythrocyte mean corpuscular h emoglobin concentration measurement (mass/volume) 31 g/dL 32-36 Automated erythrocyte distribution width ratio 14. 9 % 10.0- 14.5 Automated blood platelet count (count/volume) 387 10*3/uL 130-400 Automated blood platelet mean volume measurement 9.3 [foz_us] 7.4-10.4 Automated blood neutrophils/100 leukocytes 48 % 42-75 Automated blood lymphocytes/100 leukocytes 41 % 12-44 Blood monocytes/100 leukocytes 7 % 0-12 Automated blood eosinophils/100 leukocytes 4 % 0-10 Automated blood basophils/100 leukocytes 1 % 0-10 Blood neutrophils automated count (number/volume) 2.8 10*3 1.8-7.8 Blood lymphocytes automated count (number/volume) 2.4 10*3 1.0-4.0 Blood monocytes automated count (number/volume) 0. 4 10*3 0.0-1.0 Automated eosinophil count 0.2 10*3/uL 0 .0-0.3 Automated blood basophil count (count/volume) 0.0 10*3/uL 0.0-0.1 PT panel in platelet poor plasma by coag ulation assay - 08/26/19 03:55 Prothrombin time (PT) in platelet poor plasma by coagu lation assay 12.7 s 12.2-14.7 INR in platelet poor plasma or blood by coagulation as say 0.9 0.8-1.4 Activated partial thromboplastin time (a PTT) in platelet poor plasma bycoagulation assay - 08/26/19 03:55 Activated partial thromboplastin time (a PTT) in platelet poor plasma bycoagulation assay 36 s 24-35 Comprehensive metabolic panel - 08/26/19 03:55 Serum or plasma sodium measurement (moles/volume) 140 mmol/L 135-145 Serum or plasma potassium measurement (moles/volume) 6.1 mmol/L 3.6-5.0 Serum or plasma chloride measurement (moles/volume) 111 mmol/L 98-107 Carbon dioxide 17 mmol/L 21-32 Serum or plasma anion gap determination (moles/volume) 12 mmol/L 5-14 Serum or plasma urea nitrogen measurement (mass/volume ) 54 mg/dL 7-18 Serum or plasma creatinine measurement (mass/volume) 1.54 mg/dL 0.60-1.30 Serum or plasma urea nitrogen/creatinine mass ratio 35 NRG Serum or plasma creatinine measurement w ith calculation of estimated glomerular filtration rate 35 NRG Serum or plasma glucose measurement (mass/volume) 81 mg/dL 70-105 Serum or plasma calcium measurement (mass/volume) 8.5 mg/dL 8.5-10.1 Serum or plasma total bilirubin measurement (mass/volu me) 0.1 mg/dL 0.1-1.0 Serum or plasma alkaline phosphatase lorenzo surement (enzymatic activity/volume) 73 U/L 40-136 Serum or plasma aspartate aminotransfera se measurement (enzymatic activity/volume) 12 U/L 5-34 Serum or plasma alanine aminotransferase measurement (enzymatic activity/volume) 15 U/L 0-55 Serum or plasma protein measurement (mass/volume) 6.6 g/dL 6.4-8.2 Serum or plasma albumin measurement (mass/volume) 3.8 g/dL 3.2-4.5 CALCIUM CORRECTED 8.7 mg/dL 8.5-10.1 Magnesium - 08/26/19 03:55 Magnesium 2.1 mg/dL 1.6-2.4 Serum or plasma creatine kinase measurem ent (enzymatic activity/volume) - 08/26/19 03:55 Serum or plasma creatine kinase measurem ent (enzymatic activity/volume) 46 U/L 29-168 Serum or plasma creatine kinase MB measu rement (enzymatic activity/volume) - 08/26/19 03:55 Serum or plasma creatine kinase MB measu rement (enzymatic activity/volume) 2.8 ng/mL <6.6 Serum or plasma troponin i.cardiac measu rement (mass/volume) - 08/26/19 03:55 Serum or plasma troponin i.cardiac measurement (mass/v olume) 0.084 ng/mL <0.028 Myoglobin, serum - 08/26/19 03:55 Myoglobin, serum 36.0 ng/mL 10.0-92.0 Serum or plasma salicylates measurement (mass/volume) - 08/26/19 03:55 Serum or plasma salicylates measurement (mass/volume) < mg/dL 5.0-20.0 Serum or plasma acetaminophen measuremen t (mass/volume) - 08/26/19 03:55 Serum or plasma acetaminophen measurement (mass/volume ) < ug/mL 10-30 Serum or plasma ethanol measurement (mas s/volume) - 08/26/19 03:55 Serum or plasma ethanol measurement (mass/volume) < mg/dL <10 Serum or plasma lithium measurement (mol es/volume) - 08/26/19 03:55 BNP PT 188.3 pg/mL <100.0 PHENOBARBITAL - 08/26/19 03:55 [id number] 8.0 % 15.0-40.0 Influenza virus A and B antigen detectio n - 08/26/19 03:59 FLU RESULT NEGATIVE FOR INFLUENZA A AND B ANTIGENS BY IA NRG Blood carboxyhemoglobin/total hemoglobin - 08/26/19 04:08 Blood carboxyhemoglobin/total hemoglobin 0.7 % 0.5-2.5 Arterial blood gas measurement - 9 04:08 Blood pCO2 45 mm[Hg] 35-45 Blood pO2 64 mm[Hg] 79-93 Arterial blood bicarbonate measurement (moles/volume) 21 mmol/L 23-27 Arterial blood base excess by calculation -4.7 mmo l/L -2.5-2.5 Arterial blood oxygen saturation measurement 90 % 94-100 * Inhaled oxygen flow rate 2L NRG Arterial blood pH measurement with patient temperature correction 7.29 7.37-7.43 Arterial blood carbon dioxide, total measurement (mole s/volume) 22.5 mmol/L 21.0-31.0 Body site RRAD NRG Assessment of wrist artery patency prior to arterial p uncture YES-POS NRG Setting of ventilation mode NO NR G Measurement of body temperature 36.0 NRG Complete urinalysis with reflex to cultu re - 08/26/19 04:12 Urine color determination YELLOW NRG Urine clarity determination CLEAR NR G Urine pH measurement by test strip 5.0 5-9 Specific gravity of urine by test strip 1.020 1.016-1.022 Urine protein assay by test strip, semi-quantitative NEGATIVE NEGATIVE Urine glucose detection by automated test strip NE GATIVE NEGATIVE Erythrocytes detection in urine sediment by light micr oscopy NEGATIVE NEGATIVE Urine ketones detection by automated test strip NE GATIVE NEGATIVE Urine nitrite detection by test strip NEGATIVE NEGATIVE Urine total bilirubin detection by test strip NEGA TIVE NEGATIVE Urine urobilinogen measurement by automated test strip (mass/volume) 0.2 mg/dL < = 1.0 Urine leukocyte esterase detection by dipstick NEG ATIVE NEGATIVE Automated urine sediment erythrocyte cou nt by microscopy (number/high power field) NONE NRG Automated urine sediment leukocyte count by microscopy (number/high power field) NONE NRG Bacteria detection in urine sediment by light microsco py NEGATIVE NRG Squamous epithelial cells detection in u rine sediment by light microscopy NONE NRG Crystals detection in urine sediment by light microsco py NONE NRG Casts detection in urine sediment by light microscopy PRESENT NRG Mucus detection in urine sediment by light microscopy SMALL NRG Complete urinalysis with reflex to culture NO NRG Hyaline casts detection in urine sediment by light johana roscopy RARE NRG Urine drug screening test - 08/26/19 04: 12 Urine phencyclidine detection by screening method NEGATIVE NEGATIVE Urine benzodiazepines detection by screening method NEGATIVE NEGATIVE Urine cocaine detection NEGATIVE NEGATI VE Urine amphetamines detection by screening method N EGATIVE NEGATIVE Urine methamphetamine detection by screening method NEGATIVE NEGATIVE Urine cannabinoids detection by screening method N EGATIVE NEGATIVE Urine opiates detection by screening method NEGATI VE NEGATIVE Urine barbiturates detection POSITIVE N EGATIVE Screening urine tricyclic antidepressants detection NEGATIVE NEGATIVE Urine methadone detection by screening method NEGA TIVE NEGATIVE Urine oxycodone detection NEGATIVE NEGA TIVE Urine propoxyphene detection NEGATIVE N EGATIVE Blood lactic acid measurement (moles/vol ume) - 08/26/19 04:25 Blood lactic acid measurement (moles/volume) 0.69 mmol/L 0.50-2.00 Bacterial blood culture - 08/26/19 04:25 Bacterial blood culture NG NRG Bacterial blood culture - 08/26/19 04:29 FREE TEXT EXTERNAL SEE COMMENT NRG QUANTITY OF GROWTH Isolated NRG Bacterial blood culture [id number] NRG Methicillin resistant Staphylococcus aur eus (MRSA) screening culture - 08/26/19 04:50 Methicillin resistant Staphylococcus aureus (MRSA) scr eening culture NEG NRG Whole blood basic metabolic panel - 08/13 01/29 05:15 Serum or plasma sodium measurement (moles/volume) 139 mmol/L 135-145 Serum or plasma potassium measurement (moles/volume) 5.9 mmol/L 3.6-5.0 Serum or plasma chloride measurement (moles/volume) 113 mmol/L 98-107 Carbon dioxide 16 mmol/L 21-32 Serum or plasma anion gap determination (moles/volume) 10 mmol/L 5-14 Serum or plasma urea nitrogen measurement (mass/volume ) 51 mg/dL 7-18 Serum or plasma creatinine measurement (mass/volume) 1.34 mg/dL 0.60-1.30 Serum or plasma urea nitrogen/creatinine mass ratio 38 NRG Serum or plasma creatinine measurement w ith calculation of estimated glomerular filtration rate 41 NRG Serum or plasma glucose measurement (mass/volume) 94 mg/dL 70-105 Serum or plasma calcium measurement (mass/volume) 7.8 mg/dL 8.5-10.1 Sputum Gram stain - 08/26/19 06:45 Sputum Gram stain MIXED BACTERIAL JANICE NRG Bacterial sputum culture - 08/26/19 06:4 5 QUANTITY OF GROWTH . NRG Bacterial sputum culture USUAL RESP NRG Ammonia - 08/26/19 07:03 Ammonia 42 umol/L 11-32 Arterial blood gas measurement - 9 07:22 Blood pCO2 44 mm[Hg] 35-45 Blood pO2 62 mm[Hg] 79-93 Arterial blood bicarbonate measurement (moles/volume) 18 mmol/L 23-27 Arterial blood base excess by calculation -8.1 mmo l/L -2.5-2.5 Arterial blood oxygen saturation measurement 89 % 94-100 * Inhaled oxygen flow rate 100% NRG Arterial blood pH measurement with patient temperature correction 7.23 7.37-7.43 Arterial blood carbon dioxide, total measurement (mole s/volume) 19.6 mmol/L 21.0-31.0 Body site LEFT RADIAL NRG Assessment of wrist artery patency prior to arterial p uncture POSITIVE NRG Setting of ventilation mode YES NR G Measurement of body temperature 36.5 NRG Complete blood count (CBC) with automate d white blood cell (WBC) differential - 08/26/19 10:12 Blood leukocytes automated count (number/volume) 9.9 10*3/uL 4.3-11.0 Blood erythrocytes automated count (number/volume) 3.27 10*6/uL 4.35-5.85 Venous blood hemoglobin measurement (mass/volume) 9.4 g/dL 11.5-16.0 Blood hematocrit (volume fraction) 30 % 35-52 Automated erythrocyte mean corpuscular volume 93 [ foz_us] 80-99 Automated erythrocyte mean corpuscular h emoglobin (mass per erythrocyte) 29 pg 25-34 Automated erythrocyte mean corpuscular h emoglobin concentration measurement (mass/volume) 31 g/dL 32-36 Automated erythrocyte distribution width ratio 14. 9 % 10.0- 14.5 Automated blood platelet count (count/volume) 349 10*3/uL 130-400 Automated blood platelet mean volume measurement 9.5 [foz_us] 7.4-10.4 Automated blood neutrophils/100 leukocytes 90 % 42-75 Automated blood lymphocytes/100 leukocytes 9 % 12-44 Blood monocytes/100 leukocytes 1 % 0-12 Automated blood eosinophils/100 leukocytes 0 % 0-10 Automated blood basophils/100 leukocytes 0 % 0-10 Blood neutrophils automated count (number/volume) 8.9 10*3 1.8-7.8 Blood lymphocytes automated count (number/volume) 0.9 10*3 1.0-4.0 Blood monocytes automated count (number/volume) 0. 1 10*3 0.0-1.0 Automated eosinophil count 0.0 10*3/uL 0 .0-0.3 Automated blood basophil count (count/volume) 0.0 10*3/uL 0.0-0.1 Blood lactic acid measurement (moles/vol ume) - 08/26/19 10:12 Blood lactic acid measurement (moles/volume) 2.26 mmol/L 0.50-2.00 Comprehensive metabolic panel - 08/26/19 10:12 Serum or plasma sodium measurement (moles/volume) 140 mmol/L 135-145 Serum or plasma potassium measurement (moles/volume) 5.0 mmol/L 3.6-5.0 Serum or plasma chloride measurement (moles/volume) 112 mmol/L 98-107 Carbon dioxide 17 mmol/L 21-32 Serum or plasma anion gap determination (moles/volume) 11 mmol/L 5-14 Serum or plasma urea nitrogen measurement (mass/volume ) 52 mg/dL 7-18 Serum or plasma creatinine measurement (mass/volume) 1.53 mg/dL 0.60-1.30 Serum or plasma urea nitrogen/creatinine mass ratio 34 NRG Serum or plasma creatinine measurement w ith calculation of estimated glomerular filtration rate 35 NRG Serum or plasma glucose measurement (mass/volume) 141 mg/dL 70-105 Serum or plasma calcium measurement (mass/volume) 8.5 mg/dL 8.5-10.1 Serum or plasma total bilirubin measurement (mass/volu me) 0.2 mg/dL 0.1-1.0 Serum or plasma alkaline phosphatase lorenzo surement (enzymatic activity/volume) 73 U/L 40-136 Serum or plasma aspartate aminotransfera se measurement (enzymatic activity/volume) 12 U/L 5-34 Serum or plasma alanine aminotransferase measurement (enzymatic activity/volume) 16 U/L 0-55 Serum or plasma protein measurement (mass/volume) 6.3 g/dL 6.4-8.2 Serum or plasma albumin measurement (mass/volume) 3.7 g/dL 3.2-4.5 CALCIUM CORRECTED 8.7 mg/dL 8.5-10.1 Serum or plasma phosphate measurement (m ass/volume) - 08/26/19 10:12 Serum or plasma phosphate measurement (mass/volume) 5.8 mg/dL 2.3-4.7 Magnesium - 08/26/19 10:12 Magnesium 1.8 mg/dL 1.6-2.4 Manual absolute plasma cell count - 08/13 01/29 10:12 Blood monocytes/100 leukocytes 2 % NRG Manual blood segmented neutrophils/100 leukocytes 92 % NRG Manual blood lymphocytes/100 leukocytes 5 % NRG Manual blood basophils/100 leukocytes 1 % NRG Blood anisocytosis detection by light microscopy S LIGHT NRG Blood toxic granules detection by light microscopy 1+ NRG Arterial blood gas measurement - 9 10:22 Blood pCO2 41 mm[Hg] 35-45 Blood pO2 159 mm[Hg] 79-93 Arterial blood bicarbonate measurement (moles/volume) 18 mmol/L 23-27 Arterial blood base excess by calculation -8.7 mmo l/L -2.5-2.5 Arterial blood oxygen saturation measurement 99 % 94-100 * Inhaled oxygen flow rate 60% FI02 NRG Arterial blood pH measurement with patient temperature correction 7.24 7.37-7.43 Arterial blood carbon dioxide, total measurement (mole s/volume) 18.8 mmol/L 21.0-31.0 Body site L RADIAL NRG Assessment of wrist artery patency prior to arterial p uncture POSITIVE NRG Setting of ventilation mode YES NR G Measurement of body temperature 36 NRG Capillary blood glucose measurement by g lucometer (mass/volume) - 08/26/19 11:21 Capillary blood glucose measurement by glucometer (mas s/volume) 158 mg/dL 70-110 Serum or plasma lactate measurement (mol es/volume) - 08/26/19 14:20 Serum or plasma lactate measurement (moles/volume) 1.87 mmol/L 0.50-2.00 Serum or plasma troponin i.cardiac measu rement (mass/volume) - 08/26/19 14:20 Serum or plasma troponin i.cardiac measurement (mass/v olume) 0.054 ng/mL <0.028 Capillary blood glucose measurement by g lucometer (mass/volume) - 08/26/19 17:32 Capillary blood glucose measurement by glucometer (mas s/volume) 106 mg/dL 70-110 Arterial blood gas measurement - 9 17:45 Blood pCO2 44 mm[Hg] 35-45 Blood pO2 47 mm[Hg] 79-93 Arterial blood bicarbonate measurement (moles/volume) 19 mmol/L 23-27 Arterial blood base excess by calculation -6.9 mmo l/L -2.5-2.5 Arterial blood oxygen saturation measurement 80 % 94-100 * Inhaled oxygen flow rate 40% NRG Arterial blood pH measurement with patient temperature correction 7.26 7.37-7.43 Arterial blood carbon dioxide, total measurement (mole s/volume) 20.5 mmol/L 21.0-31.0 Body site RT RADIAL NRG Assessment of wrist artery patency prior to arterial p uncture POS NRG Setting of ventilation mode YES NR G Measurement of body temperature 36.1 NRG Serum or plasma troponin i.cardiac measu rement (mass/volume) - 08/26/19 20:37 Serum or plasma troponin i.cardiac measurement (mass/v olume) 0.035 ng/mL <0.028 Capillary blood glucose measurement by g lucometer (mass/volume) - 08/26/19 23:22 Capillary blood glucose measurement by glucometer (mas s/volume) 107 mg/dL 70-110 Complete blood count (CBC) with automate d white blood cell (WBC) differential - 08/27/19 03:02 Blood leukocytes automated count (number/volume) 6.2 10*3/uL 4.3-11.0 Blood erythrocytes automated count (number/volume) 3.20 10*6/uL 4.35-5.85 Venous blood hemoglobin measurement (mass/volume) 9.4 g/dL 11.5-16.0 Blood hematocrit (volume fraction) 29 % 35-52 Automated erythrocyte mean corpuscular volume 92 [ foz_us] 80-99 Automated erythrocyte mean corpuscular h emoglobin (mass per erythrocyte) 29 pg 25-34 Automated erythrocyte mean corpuscular h emoglobin concentration measurement (mass/volume) 32 g/dL 32-36 Automated erythrocyte distribution width ratio 14. 9 % 10.0- 14.5 Automated blood platelet count (count/volume) 318 10*3/uL 130-400 Automated blood platelet mean volume measurement 9.8 [foz_us] 7.4-10.4 Automated blood neutrophils/100 leukocytes 66 % 42-75 Automated blood lymphocytes/100 leukocytes 27 % 12-44 Blood monocytes/100 leukocytes 6 % 0-12 Automated blood eosinophils/100 leukocytes 2 % 0-10 Automated blood basophils/100 leukocytes 0 % 0-10 Blood neutrophils automated count (number/volume) 4.0 10*3 1.8-7.8 Blood lymphocytes automated count (number/volume) 1.7 10*3 1.0-4.0 Blood monocytes automated count (number/volume) 0. 3 10*3 0.0-1.0 Automated eosinophil count 0.1 10*3/uL 0 .0-0.3 Automated blood basophil count (count/volume) 0.0 10*3/uL 0.0-0.1 Comprehensive metabolic panel - 08/27/19 03:02 Serum or plasma sodium measurement (moles/volume) 140 mmol/L 135-145 Serum or plasma potassium measurement (moles/volume) 4.8 mmol/L 3.6-5.0 Serum or plasma chloride measurement (moles/volume) 110 mmol/L 98-107 Carbon dioxide 19 mmol/L 21-32 Serum or plasma anion gap determination (moles/volume) 11 mmol/L 5-14 Serum or plasma urea nitrogen measurement (mass/volume ) 43 mg/dL 7-18 Serum or plasma creatinine measurement (mass/volume) 1.28 mg/dL 0.60-1.30 Serum or plasma urea nitrogen/creatinine mass ratio 34 NRG Serum or plasma creatinine measurement w ith calculation of estimated glomerular filtration rate 43 NRG Serum or plasma glucose measurement (mass/volume) 103 mg/dL 70-105 Serum or plasma calcium measurement (mass/volume) 8.1 mg/dL 8.5-10.1 Serum or plasma total bilirubin measurement (mass/volu me) 0.2 mg/dL 0.1-1.0 Serum or plasma alkaline phosphatase lorenzo surement (enzymatic activity/volume) 65 U/L 40-136 Serum or plasma aspartate aminotransfera se measurement (enzymatic activity/volume) 11 U/L 5-34 Serum or plasma alanine aminotransferase measurement (enzymatic activity/volume) 14 U/L 0-55 Serum or plasma protein measurement (mass/volume) 5.9 g/dL 6.4-8.2 Serum or plasma albumin measurement (mass/volume) 3.3 g/dL 3.2-4.5 CALCIUM CORRECTED 8.7 mg/dL 8.5-10.1 Serum or plasma phosphate measurement (m ass/volume) - 08/27/19 03:02 Serum or plasma phosphate measurement (mass/volume) 5.7 mg/dL 2.3-4.7 Magnesium - 08/27/19 03:02 Magnesium 1.9 mg/dL 1.6-2.4 Ammonia - 08/27/19 03:02 Ammonia 26 umol/L 11-32 Arterial blood gas measurement - 9 03:47 Blood pCO2 36 mm[Hg] 35-45 Blood pO2 113 mm[Hg] 79-93 Arterial blood bicarbonate measurement (moles/volume) 21 mmol/L 23-27 Arterial blood base excess by calculation -3.4 mmo l/L -2.5-2.5 Arterial blood oxygen saturation measurement 98 % 94-100 * Inhaled oxygen flow rate 35% NRG Arterial blood pH measurement with patient temperature correction 7.38 7.37-7.43 Arterial blood carbon dioxide, total measurement (mole s/volume) 22.2 mmol/L 21.0-31.0 Body site RIGHT RADIAL NRG Assessment of wrist artery patency prior to arterial p uncture YES-POS NRG Setting of ventilation mode YES NR G Measurement of body temperature 36.0 NRG Capillary blood glucose measurement by g lucometer (mass/volume) - 08/27/19 11:14 Capillary blood glucose measurement by glucometer (mas s/volume) 163 mg/dL 70-110 Whole blood basic metabolic panel - 08/13 03/31 04:06 Serum or plasma sodium measurement (moles/volume) 143 mmol/L 135-145 Serum or plasma potassium measurement (moles/volume) 4.6 mmol/L 3.6-5.0 Serum or plasma chloride measurement (moles/volume) 110 mmol/L 98-107 Carbon dioxide 23 mmol/L 21-32 Serum or plasma anion gap determination (moles/volume) 10 mmol/L 5-14 Serum or plasma urea nitrogen measurement (mass/volume ) 38 mg/dL 7-18 Serum or plasma creatinine measurement (mass/volume) 1.26 mg/dL 0.60-1.30 Serum or plasma urea nitrogen/creatinine mass ratio 30 NRG Serum or plasma creatinine measurement w ith calculation of estimated glomerular filtration rate 44 NRG Serum or plasma glucose measurement (mass/volume) 87 mg/dL 70-105 Serum or plasma calcium measurement (mass/volume) 8.7 mg/dL 8.5-10.1 Serum or plasma phosphate measurement (m ass/volume) - 08/28/19 04:06 Serum or plasma phosphate measurement (mass/volume) 5.7 mg/dL 2.3-4.7 Magnesium - 08/28/19 04:06 Magnesium 2.2 mg/dL 1.6-2.4 Whole blood basic metabolic panel - 08/13 04/30 03:52 Serum or plasma sodium measurement (moles/volume) 141 mmol/L 135-145 Serum or plasma potassium measurement (moles/volume) 4.7 mmol/L 3.6-5.0 Serum or plasma chloride measurement (moles/volume) 107 mmol/L 98-107 Carbon dioxide 22 mmol/L 21-32 Serum or plasma anion gap determination (moles/volume) 12 mmol/L 5-14 Serum or plasma urea nitrogen measurement (mass/volume ) 32 mg/dL 7-18 Serum or plasma creatinine measurement (mass/volume) 1.20 mg/dL 0.60-1.30 Serum or plasma urea nitrogen/creatinine mass ratio 27 NRG Serum or plasma creatinine measurement w ith calculation of estimated glomerular filtration rate 46 NRG Serum or plasma glucose measurement (mass/volume) 99 mg/dL 70-105 Serum or plasma calcium measurement (mass/volume) 9.2 mg/dL 8.5-10.1 Serum or plasma phosphate measurement (m ass/volume) - 08/29/19 03:52 Serum or plasma phosphate measurement (mass/volume) 4.5 mg/dL 2.3-4.7 Magnesium - 08/29/19 03:52 Magnesium 2.0 mg/dL 1.6-2.4 Arterial blood gas measurement - 9 07:57 Blood pCO2 41 mm[Hg] 35-45 Blood pO2 74 mm[Hg] 79-93 Arterial blood bicarbonate measurement (moles/volume) 21 mmol/L 23-27 Arterial blood base excess by calculation -3.7 mmo l/L -2.5-2.5 Arterial blood oxygen saturation measurement 95 % 94-100 * Inhaled oxygen flow rate RA NRG Arterial blood pH measurement with patient temperature correction 7.33 7.37-7.43 Arterial blood carbon dioxide, total measurement (mole s/volume) 22.6 mmol/L 21.0-31.0 Body site RR NRG Assessment of wrist artery patency prior to arterial p uncture YES-POS NRG Setting of ventilation mode NO NR G Measurement of body temperature 36.7 NRG Complete blood count (CBC) with automate d white blood cell (WBC) differential - 09/14/19 08:12 Blood leukocytes automated count (number/volume) 4.8 10*3/uL 4.3-11.0 Blood erythrocytes automated count (number/volume) 3.45 10*6/uL 4.35-5.85 Venous blood hemoglobin measurement (mass/volume) 9.9 g/dL 11.5-16.0 Blood hematocrit (volume fraction) 31 % 35-52 Automated erythrocyte mean corpuscular volume 91 [ foz_us] 80-99 Automated erythrocyte mean corpuscular h emoglobin (mass per erythrocyte) 29 pg 25-34 Automated erythrocyte mean corpuscular h emoglobin concentration measurement (mass/volume) 32 g/dL 32-36 Automated erythrocyte distribution width ratio 14. 4 % 10.0- 14.5 Automated blood platelet count (count/volume) 196 10*3/uL 130-400 Automated blood platelet mean volume measurement 11.0 [foz_us] 7.4-10.4 Automated blood neutrophils/100 leukocytes 44 % 42-75 Automated blood lymphocytes/100 leukocytes 41 % 12-44 Blood monocytes/100 leukocytes 8 % 0-12 Automated blood eosinophils/100 leukocytes 6 % 0-10 Automated blood basophils/100 leukocytes 1 % 0-10 Blood neutrophils automated count (number/volume) 2.1 10*3 1.8-7.8 Blood lymphocytes automated count (number/volume) 2.0 10*3 1.0-4.0 Blood monocytes automated count (number/volume) 0. 4 10*3 0.0-1.0 Automated eosinophil count 0.3 10*3/uL 0 .0-0.3 Automated blood basophil count (count/volume) 0.0 10*3/uL 0.0-0.1 Comprehensive metabolic panel - 09/14/19 08:12 Serum or plasma sodium measurement (moles/volume) 140 mmol/L 135-145 Serum or plasma potassium measurement (moles/volume) 5.8 mmol/L 3.6-5.0 Serum or plasma chloride measurement (moles/volume) 109 mmol/L 98-107 Carbon dioxide 20 mmol/L 21-32 Serum or plasma anion gap determination (moles/volume) 11 mmol/L 5-14 Serum or plasma urea nitrogen measurement (mass/volume ) 64 mg/dL 7-18 Serum or plasma creatinine measurement (mass/volume) 1.64 mg/dL 0.60-1.30 Serum or plasma urea nitrogen/creatinine mass ratio 39 NRG Serum or plasma creatinine measurement w ith calculation of estimated glomerular filtration rate 32 NRG Serum or plasma glucose measurement (mass/volume) 94 mg/dL 70-105 Serum or plasma calcium measurement (mass/volume) 8.5 mg/dL 8.5-10.1 Serum or plasma total bilirubin measurement (mass/volu me) 0.1 mg/dL 0.1-1.0 Serum or plasma alkaline phosphatase lorenzo surement (enzymatic activity/volume) 74 U/L 40-136 Serum or plasma aspartate aminotransfera se measurement (enzymatic activity/volume) 14 U/L 5-34 Serum or plasma alanine aminotransferase measurement (enzymatic activity/volume) 15 U/L 0-55 Serum or plasma protein measurement (mass/volume) 6.8 g/dL 6.4-8.2 Serum or plasma albumin measurement (mass/volume) 4.0 g/dL 3.2-4.5 CALCIUM CORRECTED 8.5 mg/dL 8.5-10.1 Ammonia - 09/14/19 08:12 Ammonia 60 umol/L 11-32 Serum or plasma ethanol measurement (mas s/volume) - 09/14/19 08:12 Serum or plasma ethanol measurement (mass/volume) < mg/dL <10 Complete urinalysis with reflex to cultu re - 09/14/19 09:27 Urine color determination YELLOW NRG Urine clarity determination CLEAR NR G Urine pH measurement by test strip 6.0 5-9 Specific gravity of urine by test strip 1.020 1.016-1.022 Urine protein assay by test strip, semi-quantitative NEGATIVE NEGATIVE Urine glucose detection by automated test strip NE GATIVE NEGATIVE Erythrocytes detection in urine sediment by light micr oscopy NEGATIVE NEGATIVE Urine ketones detection by automated test strip NE GATIVE NEGATIVE Urine nitrite detection by test strip NEGATIVE NEGATIVE Urine total bilirubin detection by test strip NEGA TIVE NEGATIVE Urine urobilinogen measurement by automated test strip (mass/volume) 0.2 mg/dL < = 1.0 Urine leukocyte esterase detection by dipstick NEG ATIVE NEGATIVE Automated urine sediment erythrocyte cou nt by microscopy (number/high power field) RARE NRG Automated urine sediment leukocyte count by microscopy (number/high power field) RARE NRG Bacteria detection in urine sediment by light microsco py TRACE NRG Squamous epithelial cells detection in u rine sediment by light microscopy 0-2 NRG Crystals detection in urine sediment by light microsco py NONE NRG Casts detection in urine sediment by light microscopy NONE NRG Mucus detection in urine sediment by light microscopy NEGATIVE NRG Complete urinalysis with reflex to culture NO NRG Urine drug screening test - 09/14/19 09: 27 Urine phencyclidine detection by screening method NEGATIVE NEGATIVE Urine benzodiazepines detection by screening method NEGATIVE NEGATIVE Urine cocaine detection NEGATIVE NEGATI VE Urine amphetamines detection by screening method N EGATIVE NEGATIVE Urine methamphetamine detection by screening method NEGATIVE NEGATIVE Urine cannabinoids detection by screening method N EGATIVE NEGATIVE Urine opiates detection by screening method NEGATI VE NEGATIVE Urine barbiturates detection POSITIVE N EGATIVE Screening urine tricyclic antidepressants detection NEGATIVE NEGATIVE Urine methadone detection by screening method NEGA TIVE NEGATIVE Urine oxycodone detection NEGATIVE NEGA TIVE Urine propoxyphene detection NEGATIVE N EGATIVE Methicillin resistant Staphylococcus aur eus (MRSA) screening culture - 09/14/19 11:34 Methicillin resistant Staphylococcus aureus (MRSA) scr eening culture NEG NRG Arterial blood gas measurement - 9 16:05 Blood pCO2 48 mm[Hg] 35-45 Blood pO2 72 mm[Hg] 79-93 Arterial blood bicarbonate measurement (moles/volume) 22 mmol/L 23-27 Arterial blood base excess by calculation -3.6 mmo l/L -2.5-2.5 Arterial blood oxygen saturation measurement 94 % 94-100 * Inhaled oxygen flow rate RA NRG Arterial blood pH measurement with patient temperature correction 7.29 7.37-7.43 Arterial blood carbon dioxide, total measurement (mole s/volume) 23.5 mmol/L 21.0-31.0 Body site RR NRG Assessment of wrist artery patency prior to arterial p uncture YES-POS NRG Setting of ventilation mode NO NR G Measurement of body temperature 36.9 NRG Whole blood basic metabolic panel - 12/29 16:26 Serum or plasma sodium measurement (moles/volume) 141 mmol/L 135-145 Serum or plasma potassium measurement (moles/volume) 5.9 mmol/L 3.6-5.0 Serum or plasma chloride measurement (moles/volume) 112 mmol/L 98-107 Carbon dioxide 21 mmol/L 21-32 Serum or plasma anion gap determination (moles/volume) 8 mmol/L 5-14 Serum or plasma urea nitrogen measurement (mass/volume ) 59 mg/dL 7-18 Serum or plasma creatinine measurement (mass/volume) 1.55 mg/dL 0.60-1.30 Serum or plasma urea nitrogen/creatinine mass ratio 38 NRG Serum or plasma creatinine measurement w ith calculation of estimated glomerular filtration rate 34 NRG Serum or plasma glucose measurement (mass/volume) 94 mg/dL 70-105 Serum or plasma calcium measurement (mass/volume) 8.2 mg/dL 8.5-10.1 Capillary blood glucose measurement by g lucometer (mass/volume) - 09/14/19 20:02 Capillary blood glucose measurement by glucometer (mas s/volume) 63 mg/dL 70-110 Comprehensive metabolic panel - 09/15/19 02:50 Serum or plasma sodium measurement (moles/volume) 141 mmol/L 135-145 Serum or plasma potassium measurement (moles/volume) 5.9 mmol/L 3.6-5.0 Serum or plasma chloride measurement (moles/volume) 112 mmol/L 98-107 Carbon dioxide 16 mmol/L 21-32 Serum or plasma anion gap determination (moles/volume) 13 mmol/L 5-14 Serum or plasma urea nitrogen measurement (mass/volume ) 55 mg/dL 7-18 Serum or plasma creatinine measurement (mass/volume) 1.60 mg/dL 0.60-1.30 Serum or plasma urea nitrogen/creatinine mass ratio 34 NRG Serum or plasma creatinine measurement w ith calculation of estimated glomerular filtration rate 33 NRG Serum or plasma glucose measurement (mass/volume) 96 mg/dL 70-105 Serum or plasma calcium measurement (mass/volume) 8.2 mg/dL 8.5-10.1 Serum or plasma total bilirubin measurement (mass/volu me) 0.2 mg/dL 0.1-1.0 Serum or plasma alkaline phosphatase lorenzo surement (enzymatic activity/volume) 73 U/L 40-136 Serum or plasma aspartate aminotransfera se measurement (enzymatic activity/volume) 17 U/L 5-34 Serum or plasma alanine aminotransferase measurement (enzymatic activity/volume) 11 U/L 0-55 Serum or plasma protein measurement (mass/volume) 6.5 g/dL 6.4-8.2 Serum or plasma albumin measurement (mass/volume) 3.6 g/dL 3.2-4.5 CALCIUM CORRECTED 8.5 mg/dL 8.5-10.1 Serum or plasma phosphate measurement (m ass/volume) - 09/15/19 02:50 Serum or plasma phosphate measurement (mass/volume) 5.8 mg/dL 2.3-4.7 Magnesium - 09/15/19 02:50 Magnesium 1.9 mg/dL 1.6-2.4 Arterial blood gas measurement - 9 04:00 Blood pCO2 44 mm[Hg] 35-45 Blood pO2 75 mm[Hg] 79-93 Arterial blood bicarbonate measurement (moles/volume) 21 mmol/L 23-27 Arterial blood base excess by calculation -4.3 mmo l/L -2.5-2.5 Arterial blood oxygen saturation measurement 94 % 94-100 * Inhaled oxygen flow rate ROOM AIR NRG Arterial blood pH measurement with patient temperature correction 7.30 7.37-7.43 Arterial blood carbon dioxide, total measurement (mole s/volume) 22.4 mmol/L 21.0-31.0 Body site NOT INDICATED NRG Assessment of wrist artery patency prior to arterial p uncture NA NRG Setting of ventilation mode NO NR G Measurement of body temperature 36.6 NRG Complete blood count (CBC) with automate d white blood cell (WBC) differential - 09/15/19 04:00 Blood leukocytes automated count (number/volume) 5.4 10*3/uL 4.3-11.0 Blood erythrocytes automated count (number/volume) 3.37 10*6/uL 4.35-5.85 Venous blood hemoglobin measurement (mass/volume) 9.8 g/dL 11.5-16.0 Blood hematocrit (volume fraction) 30 % 35-52 Automated erythrocyte mean corpuscular volume 90 [ foz_us] 80-99 Automated erythrocyte mean corpuscular h emoglobin (mass per erythrocyte) 29 pg 25-34 Automated erythrocyte mean corpuscular h emoglobin concentration measurement (mass/volume) 32 g/dL 32-36 Automated erythrocyte distribution width ratio 14. 2 % 10.0- 14.5 Automated blood platelet count (count/volume) 203 10*3/uL 130-400 Automated blood platelet mean volume measurement 10.8 [foz_us] 7.4-10.4 Automated blood neutrophils/100 leukocytes 52 % 42-75 Automated blood lymphocytes/100 leukocytes 36 % 12-44 Blood monocytes/100 leukocytes 6 % 0-12 Automated blood eosinophils/100 leukocytes 6 % 0-10 Automated blood basophils/100 leukocytes 0 % 0-10 Blood neutrophils automated count (number/volume) 2.8 10*3 1.8-7.8 Blood lymphocytes automated count (number/volume) 2.0 10*3 1.0-4.0 Blood monocytes automated count (number/volume) 0. 3 10*3 0.0-1.0 Automated eosinophil count 0.3 10*3/uL 0 .0-0.3 Automated blood basophil count (count/volume) 0.0 10*3/uL 0.0-0.1 Blood lactic acid measurement (moles/vol ume) - 09/15/19 05:50 Blood lactic acid measurement (moles/volume) 0.94 mmol/L 0.50-2.00 Capillary blood glucose measurement by g lucometer (mass/volume) - 09/15/19 11:26 Capillary blood glucose measurement by glucometer (mas s/volume) 150 mg/dL 70-110 Comprehensive metabolic panel - 09/15/19 13:20 Serum or plasma sodium measurement (moles/volume) 141 mmol/L 135-145 Serum or plasma potassium measurement (moles/volume) 5.6 mmol/L 3.6-5.0 Serum or plasma chloride measurement (moles/volume) 108 mmol/L 98-107 Carbon dioxide 27 mmol/L 21-32 Serum or plasma anion gap determination (moles/volume) 6 mmol/L 5-14 Serum or plasma urea nitrogen measurement (mass/volume ) 51 mg/dL 7-18 Serum or plasma creatinine measurement (mass/volume) 1.37 mg/dL 0.60-1.30 Serum or plasma urea nitrogen/creatinine mass ratio 37 NRG Serum or plasma creatinine measurement w ith calculation of estimated glomerular filtration rate 40 NRG Serum or plasma glucose measurement (mass/volume) 80 mg/dL 70-105 Serum or plasma calcium measurement (mass/volume) 8.8 mg/dL 8.5-10.1 Serum or plasma total bilirubin measurement (mass/volu me) 0.3 mg/dL 0.1-1.0 Serum or plasma alkaline phosphatase lorenzo surement (enzymatic activity/volume) 73 U/L 40-136 Serum or plasma aspartate aminotransfera se measurement (enzymatic activity/volume) 13 U/L 5-34 Serum or plasma alanine aminotransferase measurement (enzymatic activity/volume) 11 U/L 0-55 Serum or plasma protein measurement (mass/volume) 6.7 g/dL 6.4-8.2 Serum or plasma albumin measurement (mass/volume) 3.9 g/dL 3.2-4.5 CALCIUM CORRECTED 8.9 mg/dL 8.5-10.1 Capillary blood glucose measurement by g lucometer (mass/volume) - 09/15/19 18:58 Capillary blood glucose measurement by glucometer (mas s/volume) 75 mg/dL 70-110 Complete blood count (CBC) with automate d white blood cell (WBC) differential - 09/16/19 03:25 Blood leukocytes automated count (number/volume) 6.1 10*3/uL 4.3-11.0 Blood erythrocytes automated count (number/volume) 3.67 10*6/uL 4.35-5.85 Venous blood hemoglobin measurement (mass/volume) 10.5 g/dL 11.5-16.0 Blood hematocrit (volume fraction) 33 % 35-52 Automated erythrocyte mean corpuscular volume 89 [ foz_us] 80-99 Automated erythrocyte mean corpuscular h emoglobin (mass per erythrocyte) 29 pg 25-34 Automated erythrocyte mean corpuscular h emoglobin concentration measurement (mass/volume) 32 g/dL 32-36 Automated erythrocyte distribution width ratio 14. 0 % 10.0- 14.5 Automated blood platelet count (count/volume) 228 10*3/uL 130-400 Automated blood platelet mean volume measurement 10.5 [foz_us] 7.4-10.4 Automated blood neutrophils/100 leukocytes 59 % 42-75 Automated blood lymphocytes/100 leukocytes 30 % 12-44 Blood monocytes/100 leukocytes 6 % 0-12 Automated blood eosinophils/100 leukocytes 6 % 0-10 Automated blood basophils/100 leukocytes 0 % 0-10 Blood neutrophils automated count (number/volume) 3.6 10*3 1.8-7.8 Blood lymphocytes automated count (number/volume) 1.8 10*3 1.0-4.0 Blood monocytes automated count (number/volume) 0. 4 10*3 0.0-1.0 Automated eosinophil count 0.3 10*3/uL 0 .0-0.3 Automated blood basophil count (count/volume) 0.0 10*3/uL 0.0-0.1 Whole blood basic metabolic panel - 1202/28 03:25 Serum or plasma sodium measurement (moles/volume) 141 mmol/L 135-145 Serum or plasma potassium measurement (moles/volume) 4.8 mmol/L 3.6-5.0 Serum or plasma chloride measurement (moles/volume) 106 mmol/L 98-107 Carbon dioxide 23 mmol/L 21-32 Serum or plasma anion gap determination (moles/volume) 12 mmol/L 5-14 Serum or plasma urea nitrogen measurement (mass/volume ) 47 mg/dL 7-18 Serum or plasma creatinine measurement (mass/volume) 1.40 mg/dL 0.60-1.30 Serum or plasma urea nitrogen/creatinine mass ratio 34 NRG Serum or plasma creatinine measurement w ith calculation of estimated glomerular filtration rate 39 NRG Serum or plasma glucose measurement (mass/volume) 109 mg/dL 70-105 Serum or plasma calcium measurement (mass/volume) 8.6 mg/dL 8.5-10.1 Serum or plasma phosphate measurement (m ass/volume) - 09/16/19 03:25 Serum or plasma phosphate measurement (mass/volume) 6.1 mg/dL 2.3-4.7 Magnesium - 09/16/19 03:25 Magnesium 1.9 mg/dL 1.6-2.4 Capillary blood glucose measurement by g lucometer (mass/volume) - 09/16/19 12:02 Capillary blood glucose measurement by glucometer (mas s/volume) 189 mg/dL 70-110 Capillary blood glucose measurement by g lucometer (mass/volume) - 09/16/19 15:40 Capillary blood glucose measurement by glucometer (mas s/volume) 128 mg/dL 70-110 Capillary blood glucose measurement by g lucometer (mass/volume) - 09/16/19 20:46 Capillary blood glucose measurement by glucometer (mas s/volume) 84 mg/dL 70-110 Complete blood count (CBC) with automate d white blood cell (WBC) differential - 09/17/19 03:01 Blood leukocytes automated count (number/volume) 4.5 10*3/uL 4.3-11.0 Blood erythrocytes automated count (number/volume) 3.65 10*6/uL 4.35-5.85 Venous blood hemoglobin measurement (mass/volume) 10.5 g/dL 11.5-16.0 Blood hematocrit (volume fraction) 33 % 35-52 Automated erythrocyte mean corpuscular volume 90 [ foz_us] 80-99 Automated erythrocyte mean corpuscular h emoglobin (mass per erythrocyte) 29 pg 25-34 Automated erythrocyte mean corpuscular h emoglobin concentration measurement (mass/volume) 32 g/dL 32-36 Automated erythrocyte distribution width ratio 14. 2 % 10.0- 14.5 Automated blood platelet count (count/volume) 225 10*3/uL 130-400 Automated blood platelet mean volume measurement 10.0 [foz_us] 7.4-10.4 Automated blood neutrophils/100 leukocytes 49 % 42-75 Automated blood lymphocytes/100 leukocytes 36 % 12-44 Blood monocytes/100 leukocytes 8 % 0-12 Automated blood eosinophils/100 leukocytes 7 % 0-10 Automated blood basophils/100 leukocytes 0 % 0-10 Blood neutrophils automated count (number/volume) 2.2 10*3 1.8-7.8 Blood lymphocytes automated count (number/volume) 1.6 10*3 1.0-4.0 Blood monocytes automated count (number/volume) 0. 4 10*3 0.0-1.0 Automated eosinophil count 0.3 10*3/uL 0 .0-0.3 Automated blood basophil count (count/volume) 0.0 10*3/uL 0.0-0.1 Whole blood basic metabolic panel - 03/31 03:01 Serum or plasma sodium measurement (moles/volume) 137 mmol/L 135-145 Serum or plasma potassium measurement (moles/volume) 4.9 mmol/L 3.6-5.0 Serum or plasma chloride measurement (moles/volume) 108 mmol/L 98-107 Carbon dioxide 20 mmol/L 21-32 Serum or plasma anion gap determination (moles/volume) 9 mmol/L 5-14 Serum or plasma urea nitrogen measurement (mass/volume ) 40 mg/dL 7-18 Serum or plasma creatinine measurement (mass/volume) 1.30 mg/dL 0.60-1.30 Serum or plasma urea nitrogen/creatinine mass ratio 31 NRG Serum or plasma creatinine measurement w ith calculation of estimated glomerular filtration rate 42 NRG Serum or plasma glucose measurement (mass/volume) 99 mg/dL 70-105 Serum or plasma calcium measurement (mass/volume) 8.7 mg/dL 8.5-10.1 Serum or plasma phosphate measurement (m ass/volume) - 09/17/19 03:01 Serum or plasma phosphate measurement (mass/volume) 5.3 mg/dL 2.3-4.7 Magnesium - 09/17/19 03:01 Magnesium 1.8 mg/dL 1.6-2.4 DILANTIN (PHENYTOIN) - 09/17/19 03:01 DILANTIN PHEN <0.6 10.0-20.0 Capillary blood glucose measurement by g lucometer (mass/volume) - 09/17/19 12:55 Capillary blood glucose measurement by glucometer (mas s/volume) 85 mg/dL 70-110 Capillary blood glucose measurement by g lucometer (mass/volume) - 09/17/19 15:34 Capillary blood glucose measurement by glucometer (mas s/volume) 93 mg/dL 70-110 Sputum Gram stain - 09/17/19 17:45 Sputum Gram stain No bacteria seen NRG Bacterial sputum culture - 09/17/19 17:4 5 QUANTITY OF GROWTH . NRG Bacterial sputum culture USUAL RESP NRG Capillary blood glucose measurement by g lucometer (mass/volume) - 09/17/19 23:29 Capillary blood glucose measurement by glucometer (mas s/volume) 88 mg/dL 70-110 Complete blood count (CBC) with automate d white blood cell (WBC) differential - 09/18/19 02:54 Blood leukocytes automated count (number/volume) 4.8 10*3/uL 4.3-11.0 Blood erythrocytes automated count (number/volume) 3.21 10*6/uL 4.35-5.85 Venous blood hemoglobin measurement (mass/volume) 9.3 g/dL 11.5-16.0 Blood hematocrit (volume fraction) 29 % 35-52 Automated erythrocyte mean corpuscular volume 90 [ foz_us] 80-99 Automated erythrocyte mean corpuscular h emoglobin (mass per erythrocyte) 29 pg 25-34 Automated erythrocyte mean corpuscular h emoglobin concentration measurement (mass/volume) 32 g/dL 32-36 Automated erythrocyte distribution width ratio 14. 1 % 10.0- 14.5 Automated blood platelet count (count/volume) 192 10*3/uL 130-400 Automated blood platelet mean volume measurement 10.1 [foz_us] 7.4-10.4 Automated blood neutrophils/100 leukocytes 66 % 42-75 Automated blood lymphocytes/100 leukocytes 23 % 12-44 Blood monocytes/100 leukocytes 7 % 0-12 Automated blood eosinophils/100 leukocytes 4 % 0-10 Automated blood basophils/100 leukocytes 0 % 0-10 Blood neutrophils automated count (number/volume) 3.2 10*3 1.8-7.8 Blood lymphocytes automated count (number/volume) 1.1 10*3 1.0-4.0 Blood monocytes automated count (number/volume) 0. 3 10*3 0.0-1.0 Automated eosinophil count 0.2 10*3/uL 0 .0-0.3 Automated blood basophil count (count/volume) 0.0 10*3/uL 0.0-0.1 Whole blood basic metabolic panel - 04/30 02:54 Serum or plasma sodium measurement (moles/volume) 143 mmol/L 135-145 Serum or plasma potassium measurement (moles/volume) 5.2 mmol/L 3.6-5.0 Serum or plasma chloride measurement (moles/volume) 115 mmol/L 98-107 Carbon dioxide 18 mmol/L 21-32 Serum or plasma anion gap determination (moles/volume) 10 mmol/L 5-14 Serum or plasma urea nitrogen measurement (mass/volume ) 36 mg/dL 7-18 Serum or plasma creatinine measurement (mass/volume) 1.17 mg/dL 0.60-1.30 Serum or plasma urea nitrogen/creatinine mass ratio 31 NRG Serum or plasma creatinine measurement w ith calculation of estimated glomerular filtration rate 48 NRG Serum or plasma glucose measurement (mass/volume) 89 mg/dL 70-105 Serum or plasma calcium measurement (mass/volume) 8.0 mg/dL 8.5-10.1 Serum or plasma phosphate measurement (m ass/volume) - 09/18/19 02:54 Serum or plasma phosphate measurement (mass/volume) 4.9 mg/dL 2.3-4.7 Magnesium - 09/18/19 02:54 Magnesium 1.8 mg/dL 1.6-2.4 Arterial blood gas measurement - 9 03:03 Blood pCO2 38 mm[Hg] 35-45 Blood pO2 82 mm[Hg] 79-93 Arterial blood bicarbonate measurement (moles/volume) 20 mmol/L 23-27 Arterial blood base excess by calculation -4.6 mmo l/L -2.5-2.5 Arterial blood oxygen saturation measurement 97 % 94-100 * Inhaled oxygen flow rate 50% NRG Arterial blood pH measurement with patient temperature correction 7.34 7.37-7.43 Arterial blood carbon dioxide, total measurement (mole s/volume) 21.5 mmol/L 21.0-31.0 Body site RIGHT RADIAL NRG Assessment of wrist artery patency prior to arterial p uncture POSITIVE NRG Setting of ventilation mode NO NR G Measurement of body temperature 36.1 NRG Serum or plasma triglyceride measurement (mass/volume) - 09/18/19 06:36 Serum or plasma triglyceride measurement (mass/volume) 128 mg/dL <150 Capillary blood glucose measurement by g lucometer (mass/volume) - 09/18/19 11:57 Capillary blood glucose measurement by glucometer (mas s/volume) 80 mg/dL 70-110 Encounters ACCT No. Visit Date/Time Discharge Status Pt. Type Provider Facility Loc./Unit Complaint [id number] 09/13/2014 14:47:00 ACT Unknown [id number] 09/14/2019 10:38:00 14:45:00 DIS Inpatient VALDOVINOS DO, RAJAN [facility] ICU SEIZURE; [id number] 08/26/2019 07:23:00 13:46:00 DIS Inpatient JOANN GONZALES, MATTHEW [place] [facility] 4TH ALTERED MENTAL STATUS;A CUTE ON CHRONIC RESP. FAIL- [id number] 08/12/2019 09:48:00 13:00:00 DIS Inpatient JIMENEZ GONZALES, KWAKU James [facility] 4TH SEIZURE,ACUTE RENAL MARTHA LURE, TROPONIN [id number] 07/07/2019 09:23:00 16:40:00 DIS Inpatient VALDOVINOS DO RAJAN V [facility] 4TH CHEST PAIN;DEHYDRATION;DIARRHEA,ACUTE RENAL INSUF. [id number] 07/02/2019 14:23:00 15:35:00 DIS Outpatient ARUNA LANGE RAJAN [facility] 4TH AMS, RESPIRATORY FAILUR E, UTI [id number] 05/04/2019 08:39:00 12:59:00 DIS Emergency QUIN JONES MD [facility] ER CHEST PAIN [id number] 09/10/2018 20:19:00 21:49:00 DIS Emergency NEERAJ VILLA APRN [facility] ER SEIZURE [id number] 08/27/2018 14:28:00 23:59:59 CLS Preadmit Paolo PERKINS MD [facility] SLEEP LAUREN [id number] 08/20/2018 10:18:00 23:59:59 CLS Outpatient Paolo PERKINS MD [facility] MODERATE TO SEVERE MITR AL REGURGITATION [id number] 08/03/2018 06:30:00 23:59:59 CLS Outpatient Paolo PERKINS MD [facility] SEVERE MITRAL REGURGITA TION BY PRIOR ECHO [id number] 07/24/2018 13:33:00 23:59:59 CLS Outpatient Paolo PERKINS MD [facility] CARD I34.0 MITRAL REGURGITAT ION [id number] 07/17/2018 07:52:00 23:59:59 CLS Outpatient Paolo PERKINS MD [facility] LAB N18.9 [id number] 02/20/2018 22:00:00 18:50:00 DIS Inpatient GAVI DEGROOT DO, V [facility] 4TH ELEVATED TROPONIN,ELEVA BRINA D- DIMER,SOA [id number] 02/03/2018 22:20:00 018 01:26:00 DIS Emergency MICHAEL BURRELL MD [facility] ER CP/SEIZURE [id number] 06/18/2017 18:03:00 017 21:14:00 DIS Emergency STAR ORTIZ [facility] ER LT LEG SORE/BRUISING [id number] 03/06/2017 09:45:00 017 11:46:00 DIS Emergency QUIN JONES MD [facility] ER ABD PAIN [id number] 11/23/2016 14:15:00 017 16:00:00 DIS Emergency QUIN JONES MD [facility] ER SOA/COUGH/VOMIT ING [id number] 08/05/2016 20:48:00 016 22:20:00 DIS Emergency HOLA BRIGHT DO a [facility] ER R LEG WOUND/PAINFUL URI NATION/LOWER BACK PAIN [id number] 01/27/2016 20:37:00 016 02:05:00 DIS Emergency HOLA BRIGHT DO a [facility] ER ABD PAIN,N,V,D [id number] 01/27/2016 01:55:00 016 05:47:00 DIS Emergency SANTHOSH LOWE MD [facility] ER L FLANK PAIN [id number] 02/02/2015 15:37:00 015 17:07:00 DIS Emergency STAR ORTIZ [facility] ER PAIN [id number] 01/19/2015 01:46:00 04:46:00 DIS Emergency SANTHOSH LOWE MD [facility] ER MERSA FLARING U P [id number] 11/27/2014 20:30:00 015 22:29:00 DIS Emergency STAR ORTIZ [facility] ER BACK PAIN [id number] 06/07/2014 16:31:00 014 14:12:00 DIS Inpatient GAVI DEGROOT DO [facility] ICU INTRACTABLE L HIP PAIN, UNABLE TO CARE FOR SELF [id number] 06/05/2014 13:39:00 014 16:45:00 DIS Emergency STAR ORTIZ [facility] ER FALL NECK PAIN AND VALDEMAR K PAIN [id number] 05/23/2014 20:00:00 014 11:35:00 DIS Inpatient MATTHEW DAVID MD [facility] ICU CHEST PAIN,COPD EXACERBATION,ELEVATED D-DIMER [id number] 04/09/2014 13:14:00 014 16:26:00 DIS Emergency NEERAJ VILLA APRN [facility] ER ABD PAIN [id number] 04/06/2014 10:52:00 014 11:45:00 DIS Inpatient GAVI DEGROOT DO, V [facility] 4TH RESPIRATORY DISTRESS,HYPOXIA,PNEUMONIA,CHEST PAIN [id number] 03/18/2014 16:36:00 014 18:25:00 DIS Emergency 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 [id number] 02/04/2014 19:05:00 014 23:17:00 DIS Emergency KAILA LANGE HOLA Alec tamez [facility] ER CHEST PAIN [id number] 11/14/2013 14:21:00 014 18:24:00 DIS Emergency NEERAJ VILLA [employer] 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 [facility] ER LOWER BACK PAIN [id number] 09/28/2013 23:45:00 02:02:00 DIS Emergency SANTHOSH LOWE MD [facility] ER CHEST PAIN [id number] 09/15/2013 12:59:00 14:32:00 DIS Emergency QUIN JONES MD [facility] ER COUGH [id number] 09/13/2013 15:15:00 08:46:00 DIS Inpatient ABELARDO AMANDA MD [facility] ICU CHEST PAIN, ELEVATED TR OPONIA [id number] 07/29/2013 14:25:00 14:49:00 DIS Outpatient BRI VILLASEÑOR [facility] WOUNDCARE LEG ABSCESS [id number] 06/20/2013 00:03:00 16:42:00 DIS Inpatient GAVI DEGROOT DO, [facility] SURGICAL MULTIPLE ABSCESSES [id number] 06/04/2013 12:49:00 23:59:59 CLS Outpatient ABELARDO AMANDA MD [facility] RAD CHF [id number] 06/04/2013 10:53:00 23:59:59 CLS Outpatient ABELARDO AMANDA MD [facility] CARD CHF [id number] 05/30/2013 13:54:00 15:27:00 DIS Emergency CHRISSY GONZALES, SANTHOSH Castellano [facility] ER CHEST PAIN [id number] 05/10/2013 01:14:00 013 14:24:00 DIS Inpatient NGOC CASTILLO MD [facility] ICU NSTEMI,CHEST PAIN,HYPER TENSIVE URGENCY [id number] 04/29/2013 14:28:00 013 23:59:59 CLS Outpatient [id number] 05/15/2018 00:10:00 Document Registration [id number] 01/27/2016 05:53:00 Document Registration [id number] 12/01/2014 13:05:00 Document Registration [id number] 12/17/2012 04:30:00 Document Registration [id number] 08/03/2012 03:50:00 Document Registration [id number] 07/23/2012 17:10:00 Document Registration [id number] 05/25/2012 03:15:00 Document Registration [id number] 05/09/2012 19:20:00 Document Registration [id number] 03/28/2012 06:00:00 Document Registration [id number] 10/10/2011 13:00:00 Document Registration [id number] 07/16/2011 01:55:00 Document Registration [id number] 07/02/2011 06:44:00 Document Registration [id number] 04/12/2011 19:39:00 Document Registration [id number] 03/22/2011 02:40:00 Document Registration [id number] 03/19/2011 17:35:00 Document Registration [id number] 03/03/2011 20:58:00 Document Registration [id number] 01/21/2011 21:56:00 Document Registration [id number] 12/28/2010 15:45:00 Document Registration [id number] 11/04/2010 20:43:00 Document Registration [id number] 02/05/2010 04:25:00 Document Registration [id number] 01/31/2015 15:03:00 01/31/2015 23:59: 59 CLS Outpatient KRANTHI PRECIADO MD [id number] 11/28/2014 09:37:00 11/28/2014 23:59: 59 CLS Outpatient TRACEE LANGE APRN [id number] 08/05/2014 14:32:00 08/05/2014 23:59: 59 CLS Outpatient TRACEE LANGE APRN [id number] 07/04/2014 12:54:00 07/04/2014 23:59: 59 CLS Outpatient GAVI DEGROOT DO [id number] 05/02/2014 15:01:00 05/02/2014 23:59: 59 CLS Outpatient GAVI DEGROOT DO [id number] 12/10/2013 14:53:00 12/10/2013 23:59: 59 CLS Outpatient TRACEE LANGE APRN [id number] 09/29/2013 15:37:00 09/29/2013 23:59: 59 CLS Outpatient TRACEE LANGE APRN [id number] 09/18/2013 12:00:00 09/18/2013 23:59: 59 CLS Outpatient TRACEE LANGE APRN [id number] 07/15/2013 14:04:00 07/15/2013 23:59: 59 CLS Outpatient KRANTHI PRECIADO MD [id number] 05/31/2013 09:17:00 05/31/2013 23:59: 59 CLS Outpatient KRANTHI PRECIADO MD [id number] 12/09/2012 17:16:00 12/09/2012 23:59: 59 CLS Outpatient TRACEE LANGE APRN Nona [id number] 10/28/2012 12:04:00 10/28/2012 23:59: 59 CLS Outpatient TRACEE LANGE APRN [id number] 10/19/2012 16:04:00 10/19/2012 23:59: 59 CLS Outpatient [id number] 09/16/2012 15:22:00 09/16/2012 23:59: 59 CLS Outpatient [id number] 08/14/2012 10:30:00 08/14/2012 23:59:5 9 CLS Outpatient KRANTHI PRECIADO MD [id number] 05/21/2013 10:29:00 Document Registration [id number] 03/02/2013 15:46:00 Document Registration [id number] 08/18/2019 15:40:00 08/18/2019 23:59:5 9 CLS Outpatient TRACEE LANGE APRN [facility] [id number] 06/11/2019 13:40:00 Document Registration [id number] 05/05/2019 10:40:00 Document Registration [id number] 11/30/2018 15:40:00 Document Registration [id number] 09/04/2018 11:00:00 Document Registration
== END 2019-09-18 14:45 | disposition short-term general hospital (02) | DRG 981 ==
LOC: EDUNIT# 07:33 → ER 07:34 → ICU 10:38
PROVIDERS: ADMIT Internal Medicine; ATTEND Internal Medicine
PROC: 02HV33Z Insertion of Infusion Device into Superior Vena Cava, Percutaneous Approach (ICD-10-PCS; 2019-09-15)
PROC: 0JH60WZ Insertion of Totally Implantable Vascular Access Device into Chest Subcutaneous Tissue and Fascia, Open Approach (ICD-10-PCS; principal; 2019-09-15 15:27)
PROC: 0BH17EZ Insertion of Endotracheal Airway into Trachea, Via Natural or Artificial Opening (ICD-10-PCS; 2019-09-17)
PROC: 5A1935Z Respiratory Ventilation, Less than 24 Consecutive Hours (ICD-10-PCS; 2019-09-17)
DX: G40.901 Epilepsy, unspecified, not intractable, with status epilepticus (principal); J96.01 Acute respiratory failure with hypoxia; I42.9 Cardiomyopathy, unspecified; N17.9 Acute kidney failure, unspecified; I50.22 Chronic systolic (congestive) heart failure; I13.0 Hypertensive heart and chronic kidney disease with heart failure and stage 1 through stage 4 chronic kidney disease, or unspecified chronic kidney disease; Z99.11 Dependence on respirator [ventilator] status; E87.5 Hyperkalemia; J44.9 Chronic obstructive pulmonary disease, unspecified; I25.10 Atherosclerotic heart disease of native coronary artery without angina pectoris; M54.2 Cervicalgia; M19.90 Unspecified osteoarthritis, unspecified site; F41.9 Anxiety disorder, unspecified; F31.9 Bipolar disorder, unspecified; K21.9 Gastro-esophageal reflux disease without esophagitis; D63.8 Anemia in other chronic diseases classified elsewhere; E11.51 Type 2 diabetes mellitus with diabetic peripheral angiopathy without gangrene; F10.20 Alcohol dependence, uncomplicated; E11.22 Type 2 diabetes mellitus with diabetic chronic kidney disease; N18.9 Chronic kidney disease, unspecified; I08.1 Rheumatic disorders of both mitral and tricuspid valves; F17.210 Nicotine dependence, cigarettes, uncomplicated; E83.39 Other disorders of phosphorus metabolism; Z79.82 Long term (current) use of aspirin; Z90.710 Acquired absence of both cervix and uterus; Z87.440 Personal history of urinary (tract) infections; Z87.442 Personal history of urinary calculi; I25.2 Old myocardial infarction; Z87.820 Personal history of traumatic brain injury
CPT/HCPCS: 36415; 36600; 51702; 70551; 71045; 80048; 80053; 80185; 80306; 80320; 81000; 82140; 82805; 82962; 83605; 83735; 84100; 84478; 85025; 87070; 87081; 87205; 93005; 94002; 94003; 94660; 94799; 96361; 96374

== ENCOUNTER 2019-10-09 14:08 | Emergency (ER) | payer MEDICAID ==
[~2019-10-09] VITALS: Ht 165 cm; Wt 81.0 kg
[~2019-10-09 14:08] MED LIST changes: +ACET-77 PO; -ACET-78 PO; +METO-370; +METO-395 PO; -METO50TA7; +MORP-34; -MORP-69; +RANI-515 PO; -RANI-609 PO
[2019-10-09 14:38] LABS: BASOPHILS % (AUTO) 1 % (0-10); EOSINOPHILS # (AUTO) 0.3 10^3/uL (0.0-0.3); EOSINOPHILS % (AUTO) 6 % (0-10); HEMATOCRIT 31 % (35-52); HEMOGLOBIN 9.9 G/DL (11.5-16.0); LYMPHOCYTES # (AUTO) 1.9 X 10^3 (1.0-4.0); LYMPHOCYTES % (AUTO) 41 % (12-44); MEAN CORPUSCULAR HEMOGLOBIN 29 PG (25-34); MEAN CORPUSCULAR HGB CONC 32 G/DL (32-36); MEAN CORPUSCULAR VOLUME 90 FL (80-99); MEAN PLATELET VOLUME 9.8 FL (7.4-10.4); MONOCYTES # (AUTO) 0.4 X 10^3 (0.0-1.0); MONOCYTES % (AUTO) 8 % (0-12); NEUTROPHILS # (AUTO) 2.1 X 10^3 (1.8-7.8); NEUTROPHILS % (AUTO) 45 % (42-75); PLATELET COUNT 479 10^3/uL (130-400); RED CELL DISTRIBUTION WIDTH 14.9 % (10.0-14.5); WHITE BLOOD COUNT 4.7 10^3/uL (4.3-11.0)
--- NOTE | 2019-10-09 14:42 | ED Neurological Problem ---
General Chief Complaint: Neurological Problems Stated Complaint: SEIZURE Nursing Triage Note: ARRIVED VIA AMB VIA [facility]. PT CALLED EMS AND WHEN NEIGHBOR GOT TO HER HOUSE SHE WAS HAVING A SEIZURE THAT LASTED APPX 10 MINS ACCORDING TO NEIGHBOR. UPON EMS ARRIVAL SHE WAS POSTICTAL. UPON ARRIVAL TO ER PT IS ANSWERING QUESTIONS BUT LISTLESS. Nursing Sepsis Screen: No Definite Risk Source: patient, EMS Exam Limitations: no limitations History of Present Illness Date Seen by Provider: Oct 09, 2019 Time Seen by Provider: 14:41 Initial Comments To ER per [facility] from home with reports of a 10 minute long seizure just prior to arrival. Patient has an extensive history of seizure disorder, recently released from [facility] in the [place] following status epilepticus admission. Timing/Duration: 1/2 hour Severity: moderate Associated Symptoms: confusion Allergies and Home Medications Allergies Coded Allergies: nitrous oxide (Verified Allergy, Unknown, 06/08/07) Home Medications Acetaminophen 500 Mg Tablet, 1,000 MG PO Q6H PRN for PAIN-MILD, (Reported) Amlodipine Besylate 10 Mg Tablet, 10 MG PO DAILY, (Reported) LAST FILLED #30 07-05-19 Aspirin 81 Mg Tab.chew, 81 MG PO DAILY, (Reported) Clonidine HCl 0.2 Mg Tablet, 0.4 MG PO BID, (Reported) TAKES 2 (0.2MG) TABLETS Cyclobenzaprine HCl 10 Mg Tablet, 10 MG PO TID PRN for MUSCLE SPASMS, (Reported) Hydralazine HCl 50 Mg Tablet, 50 MG PO TID, (Reported) Levetiracetam 500 Mg Tablet, 500 MG PO BID, (Reported) Loratadine 10 Mg Tablet, 10 MG PO DAILY, (Reported) Losartan Potassium 100 Mg Tablet, 100 MG PO DAILY, (Reported) Metoprolol Succinate 100 Mg Tab.er.24h, 100 MG PO DAILY, (Reported) Oxcarbazepine 600 Mg Tablet, 600 MG PO BID, (Reported) Prazosin HCl 1 Mg Capsule, 1 MG PO HS, (Reported) Ranitidine HCl 150 Mg Tablet, 150 MG PO HS, (Reported) LAST FILLED #30 08-03-19 Spironolactone 25 Mg Tablet, 25 MG PO DAILY, (Reported) LAST FILLED #30 08-03-19 Patient Home Medication List Home Medication List Reviewed: Yes Review of Systems Review of Systems Constitutional: see HPI Eyes: No Symptoms Reported Ears, Nose, Mouth, Throat: no symptoms reported Respiratory: no symptoms reported Cardiovascular: no symptoms reported Genitourinary: no symptoms reported Musculoskeletal: no symptoms reported Skin: no symptoms reported Psychiatric/Neurological: No Symptoms Reported Endocrine: No Symptoms Reported Past Uxaqjtn-Olrxnw-Iosewf Hx Patient Social History Alcohol Use: Past History Recreational 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) Drug of Choice: + IV METH USE, THC USE Smoking Status: Former Smoker Type Used: Cigarettes 2nd Hand Smoke Exposure: Yes Recent Foreign Travel: No Contact w/Someone Who Travel: No Recent Infectious Disease Expo: No Recent Hopitalizations: No Immunizations Up To Date Tetanus Booster (TDap): Less than 5yrs PED Vaccines UTD: No Date of Pneumonia Vaccine: Jul 13, 2012 Date of Influenza Vaccine: Jul 15, 2019 Seasonal Allergies Seasonal Allergies: No Past Medical History Surgeries: Yes Abdominal, Adenoidectomy, Cardiac, Section, Hysterectomy, Oophorectomy, Tonsillectomy Respiratory: Yes COPD Currently Using CPAP: No Currently Using BIPAP: No Cardiac: Yes Cardiomyopathy, Coronary Artery Disease, Endocarditis, Heart Attack, Hypertension, Peripheral Vascular, Valvular Heart Disease Neurological: Yes Concussion, Seizure Disorder, Stroke, Traumatic Brain Injury 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 Disorders: No Female 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, 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 Sexually Transmitted Disease: No HIV/AIDS: No Genitourinary: Yes Kidney Infection, Bladder Infection, Kidney Stones, Renal Failure, UTI-Chronic Gastrointestinal: Yes Abdominal Hernia, Gastroesophageal Reflux, Pancreatitis, Hepatitis Musculoskeletal: Yes (CHRONIC NECK AND BACK PAIN; POOR AMBULATION) Arthritis, Chronic Back Pain Endocrine: Yes (HGB AIC WAS 6.5 ON 12/23/18) Diabetes, Non-Insulin dep HEENT: Yes (POOR DENTITION) Loss of Vision: Denies Hearing Impairment: Denies Cancer: No Cervical Psychosocial: Yes (EXTENSIVE POLYSUBSTANCE ABUSE) Anxiety, Bipolar, Depression Integumentary: No Blood Disorders: Yes (ANEMIA OF CHRONIC DISEASE) Adverse Reaction/Blood Tranf: No Family Medical History Abdominal aortic aneurysm 03 FATHER Alcoholism 03 FATHER 03 MOTHER 09 SISTER 09 SISTER Cancer 03 FATHER Cataract 03 FATHER 03 MOTHER Chest pain 03 MOTHER Family history: Diabetes mellitus 03 MOTHER Family history: Hypertension 03 MOTHER Family history: Thyroid disorder 03 MOTHER Headache 09 SISTER Heart disease 03 MOTHER History of drug abuse 03 FATHER 09 SISTER Myocardial infarction 03 MOTHER No Family History of: [place]'s disease Aphasia Cancer of colon Congenital heart disease Congestive heart failure Cystic fibrosis Dementia Dysphagia Family history: Allergy Family history: Alzheimer's disease Family history: Arthritis Family history: Asthma Family history: Breast disease Family history: Cardiovascular disease Family history: Coronary thrombosis Family history: Gastrointestinal disease Family history: Glaucoma Family history: Osteoporosis Hearing loss Hereditary disease History of - anemia History of - disorder History of - respiratory disease Human immunodeficiency virus (HIV) seropositivity Hypercholesterolemia Infertile Kidney disease Malignant neoplasm of lung Parkinson's disease Prostate cancer Psychotic disorder Seizure disorder Stroke Tuberculosis Visual impairment AAA, Heart Disease, Diabetes Physical Exam Vital Signs Vital Signs - First Documented 10/09/19 14:08 Temp 37.0 Pulse 75 Resp 16 B/P (MAP) 111/71 (84) Pulse Ox 96 O2 Delivery Room Air Capillary Refill : Less Than 3 Seconds Height, Weight, BMI Height: 5'3.00" Weight: 155lbs. 8.0oz. 70.818164im; 29.00 BMI Method:Stated General Appearance: WD/WN, no apparent distress, other (alert, looks at me during conversation, smiles, whispers softly but answers are unintelligible.) HEENT: PERRL/EOMI, normal ENT inspection Neck: non-tender, full range of motion Respiratory: no respiratory distress, no accessory muscle use Gastrointestinal: normal bowel sounds, non tender, soft Extremities: normal range of motion, non-tender Neurologic/Psychiatric: alert, normal mood/affect, oriented x 3 Crainal Nerves: normal hearing, normal speech, PERRL Skin: normal color, warm/dry Procedures/Interventions Date of ETT Placement: Sep 17, 2019 Time of ETT Placement: 1745 Progress/Results/Core Measures Results/Orders Lab Results Laboratory Tests Test 10/09/19 14:30 10/09/19 16:01 Range/Units White Blood Count 4.7 4.3-11.0 10^3/uL Red Blood Count 3.43 L 4.35-5.85 10^6/uL Hemoglobin 9.9 L 11.5-16.0 G/DL Hematocrit 31 L 35-52 % Mean Corpuscular Volume 90 80-99 FL Mean Corpuscular Hemoglobin 29 25-34 PG Mean Corpuscular Hemoglobin Concent 32 32-36 G/DL Red Cell Distribution Width 14.9 H 10.0-14.5 % Platelet Count 479 H 130-400 10^3/uL Mean Platelet Volume 9.8 7.4-10.4 FL Neutrophils (%) (Auto) 45 42-75 % Lymphocytes (%) (Auto) 41 12-44 % Monocytes (%) (Auto) 8 0-12 % Eosinophils (%) (Auto) 6 0-10 % Basophils (%) (Auto) 1 0-10 % Neutrophils # (Auto) 2.1 1.8-7.8 X 10^3 Lymphocytes # (Auto) 1.9 1.0-4.0 X 10^3 Monocytes # (Auto) 0.4 0.0-1.0 X 10^3 Eosinophils # (Auto) 0.3 0.0-0.3 10^3/uL Basophils # (Auto) 0.0 0.0-0.1 10^3/uL Sodium Level 139 135-145 MMOL/L Potassium Level 5.5 H 3.6-5.0 MMOL/L Chloride Level 111 H 98-107 MMOL/L Carbon Dioxide Level 18 L 21-32 MMOL/L Anion Gap 10 5-14 MMOL/L Blood Urea Nitrogen 66 H 7-18 MG/DL Creatinine 1.42 H 0.60-1.30 MG/DL Estimat Glomerular Filtration Rate 38 BUN/Creatinine Ratio 46 Glucose Level 98 70-105 MG/DL Calcium Level 8.6 8.5-10.1 MG/DL Corrected Calcium 8.6 8.5-10.1 MG/DL Total Bilirubin 0.1 0.1-1.0 MG/DL Aspartate Amino Transf (AST/SGOT) 12 5-34 U/L Alanine Aminotransferase (ALT/SGPT) 16 0-55 U/L Alkaline Phosphatase 69 40-136 U/L Total Protein 6.9 6.4-8.2 GM/DL Albumin 4.0 3.2-4.5 GM/DL Urine Color YELLOW Urine Clarity CLEAR Urine pH 6.0 5-9 Urine Specific [place] 1.020 1.016-1.022 Urine Protein NEGATIVE NEGATIVE Urine Glucose (UA) NEGATIVE NEGATIVE Urine Ketones NEGATIVE NEGATIVE Urine Nitrite NEGATIVE NEGATIVE Urine Bilirubin NEGATIVE NEGATIVE Urine Urobilinogen 0.2 < = 1.0 MG/DL Urine Leukocyte Esterase NEGATIVE NEGATIVE Urine RBC (Auto) NEGATIVE NEGATIVE Urine RBC NONE /HPF Urine WBC NONE /HPF Urine Squamous Epithelial Cells NONE /HPF Urine Crystals NONE /LPF Urine Bacteria NEGATIVE /HPF Urine Casts PRESENT /LPF Urine Hyaline Casts RARE /LPF Urine Mucus NEGATIVE /LPF Urine Culture Indicated NO Urine Opiates Screen NEGATIVE NEGATIVE Urine Oxycodone Screen NEGATIVE NEGATIVE Urine Methadone Screen NEGATIVE NEGATIVE Urine Propoxyphene Screen NEGATIVE NEGATIVE Urine Barbiturates Screen POSITIVE H NEGATIVE Ur Tricyclic Antidepressants Screen POSITIVE H NEGATIVE Urine Phencyclidine Screen NEGATIVE NEGATIVE Urine Amphetamines Screen NEGATIVE NEGATIVE Urine Methamphetamines Screen NEGATIVE NEGATIVE Urine Benzodiazepines Screen NEGATIVE NEGATIVE Urine Cocaine Screen NEGATIVE NEGATIVE Urine Cannabinoids Screen NEGATIVE NEGATIVE My Orders Orders - NEERAJ VILLA [employer]ER [employer] WORK[employer] Cbc With Automated Diff (10/09/19 14:19) Comprehensive Metabolic Panel (10/09/19 14:19) Ua Culture If Indicated (10/09/19 14:19) Drug Screen Stat (Urine) (10/09/19 14:19) Ed Iv/Invasive Line Start (10/09/19 14:19) Ns Iv 1000 Ml (Sodium Chloride 0.9%) (10/09/19 15:00) Lactated Ringers (Lr 1000 Ml Iv Solution (10/09/19 15:15) Vital Signs/I&O 10/09/19 14:08 Temp 37.0 Pulse 75 Resp 16 B/P (MAP) 111/71 (84) Pulse Ox 96 O2 Delivery Room Air Blood Pressure Mean: 84 Departure Communication (Admissions) 1627-has had no seizure activity here, allergic but arousable to verbal stimuli. Has been talking on her cell phone. We will discharge to home. Impression Primary Impression: Seizure disorder Disposition: 01 HOME, SELF-CARE Condition: Improved Departure-Patient Inst. Decision time for Depature: 16:28 Referrals: [facility] (PCP/Family) Primary Care Physician Patient Instructions: Seizures, Adult (DC) NEERAJ VILLA APRN Oct 09, 2019 14:42
[2019-10-09 14:56] LABS: BILIRUBIN,TOTAL 0.1 MG/DL (0.1-1.0); CALCIUM 8.6 MG/DL (8.5-10.1); CREATININE SERUM 1.42 MG/DL (0.60-1.30); POTASSIUM 5.5 MMOL/L (3.6-5.0); TOTAL PROTEIN 6.9 GM/DL (6.4-8.2)
[2019-10-09] MEDS ORDERED: NS IV 1000 ML 1,000 ML IV SCH (15:00)
[2019-10-09] MEDS ORDERED: LACTATED RINGERS 1,000 ML IV SCH (15:15)
[2019-10-09 16:07] LABS: BILIRUBIN,URINE NEGATIVE (NEGATIVE); CLARITY,URINE CLEAR; COLOR,URINE YELLOW; GLUCOSE, URINE (UA) NEGATIVE (NEGATIVE); KETONES,URINE NEGATIVE (NEGATIVE); LEUKOCYTE ESTERASE ,URINE NEGATIVE (NEGATIVE); NITRITE,URINE NEGATIVE (NEGATIVE); PROTEIN,URINE NEGATIVE (NEGATIVE)
[2019-10-09 16:16] LABS: BACTERIA,URINE NEGATIVE /HPF; HYALINE CASTS, URINE RARE /LPF
[2019-10-09 16:20] LABS: AMPHETAMINE SCREEN, URINE NEGATIVE (NEGATIVE); BARBITURATE SCREEN URINE POSITIVE (NEGATIVE); BENZODIAZEPINES SCREEN URINE NEGATIVE (NEGATIVE); CANNABINOID SCREEN, URINE NEGATIVE (NEGATIVE); COCAINE SCREEN URINE NEGATIVE (NEGATIVE); METHADONE STAT NEGATIVE (NEGATIVE); METHAMPHETAMINE SCREEN URINE S NEGATIVE (NEGATIVE); OPIATE SCREEN URINE NEGATIVE (NEGATIVE); OXYCODONE STAT NEGATIVE (NEGATIVE); PROPOXYPHENE STAT NEGATIVE (NEGATIVE); TRICYCLIC ANTIDEPRESSANTS SCRE POSITIVE (NEGATIVE)
--- NOTE | 2019-10-09 16:45 | NUR ---
PT CALLING FOR A RIDE HOME. ALERT ET TALKING WITHOUT DIFFICULTY.
[2019-10-09 17:15] VITALS: BP 123/68
== END 2019-10-09 17:15 | disposition home or self-care (01) ==
LOC: EDUNIT# 14:08 → ER 14:09
DX: G40.909 Epilepsy, unspecified, not intractable, without status epilepticus (principal); J44.9 Chronic obstructive pulmonary disease, unspecified; I25.10 Atherosclerotic heart disease of native coronary artery without angina pectoris; I25.2 Old myocardial infarction; I10 Essential (primary) hypertension; E11.9 Type 2 diabetes mellitus without complications; F41.9 Anxiety disorder, unspecified; F31.9 Bipolar disorder, unspecified; D64.9 Anemia, unspecified; K21.9 Gastro-esophageal reflux disease without esophagitis; Z87.820 Personal history of traumatic brain injury; Z85.41 Personal history of malignant neoplasm of cervix uteri; Z86.73 Personal history of transient ischemic attack (TIA), and cerebral infarction without residual deficits; Z87.442 Personal history of urinary calculi; Z87.440 Personal history of urinary (tract) infections; Z88.8 Allergy status to other drugs, medicaments and biological substances; Z79.82 Long term (current) use of aspirin; Z87.891 Personal history of nicotine dependence; Z77.22 Contact with and (suspected) exposure to environmental tobacco smoke (acute) (chronic); Z90.89 Acquired absence of other organs; Z90.710 Acquired absence of both cervix and uterus; Z82.49 Family history of ischemic heart disease and other diseases of the circulatory system
CPT/HCPCS: 36415; 80053; 80306; 81000; 85025; 96360

== ENCOUNTER 2019-10-27 21:41 | Emergency (ER) | payer MEDICAID ==
[~2019-10-27] VITALS: Ht 165 cm; Wt 81.0 kg
[~2019-10-27 21:41] MED LIST changes: -ACET-77 PO; +ACET-78 PO; -METO-370; -METO-395 PO; +METO50TA7; -MORP-34; +MORP-69; -RANI-515 PO; +RANI-609 PO
[2019-10-27] MEDS ORDERED: HYDR-3781 PO (21:52)
[2019-10-27] MEDS ORDERED: LORA-404 PO (21:52)
[2019-10-27] MEDS ORDERED: PHEN97.2 PO (21:52)
--- NOTE | 2019-10-27 21:53 | ED Neurological Problem ---
General Chief Complaint: Neurological Problems Stated Complaint: WEAKNESS Source: patient, EMS Exam Limitations: no limitations (NEERAJ VILLA APRN) History of Present Illness Date Seen by Provider: Oct 27, 2019 Time Seen by Provider: 21:51 Initial Comments To ER by [facility] from home with reports of seizure activity 2 tonight. Neighbor witnessed her slowly slide herself out of her chair prior to the seizure then seized for a few minutes, upon EMS arrival she was essentially unresponsive, blood sugar was found to be 61. D10 was started she was placed in the ambulance and transported here to the emergency room. She's been feeling generally ill since yesterday with increased number of seizures. Upon arrival she states she does not want any "breathing tubes" should that be needed, she was recently intubated and is referring to endotracheal tubes. Timing/Duration: 24 hours, increasing Severity: moderate Associated Symptoms: No confusion; weakness (NEERAJ VILLA APRN) Allergies and Home Medications Allergies Coded Allergies: nitrous oxide (Verified Allergy, Unknown, 06/08/07) Home Medications Acetaminophen 500 Mg Tablet, 1,000 MG PO Q6H PRN for PAIN-MILD, (Reported) Amlodipine Besylate 10 Mg Tablet, 10 MG PO DAILY, (Reported) LAST FILLED #30 07-05-19 Aspirin 81 Mg Tab.chew, 81 MG PO DAILY, (Reported) Clonidine HCl 0.2 Mg Tablet, 0.4 MG PO BID, (Reported) TAKES 2 (0.2MG) TABLETS Cyclobenzaprine HCl 10 Mg Tablet, 10 MG PO TID PRN for MUSCLE SPASMS, (Reported) Hydralazine HCl 50 Mg Tablet, 50 MG PO TID, (Reported) Levetiracetam 500 Mg Tablet, 500 MG PO BID, (Reported) Loratadine 10 Mg Tablet, 10 MG PO DAILY, (Reported) Lorazepam 0.5 Mg Tablet, 0.5 MG PO TID PRN for ANXIETY, (Reported) Losartan Potassium 100 Mg Tablet, 100 MG PO DAILY, (Reported) Metoprolol Succinate 100 Mg Tab.er.24h, 100 MG PO DAILY, (Reported) Oxcarbazepine 600 Mg Tablet, 600 MG PO BID, (Reported) Prazosin HCl 1 Mg Capsule, 1 MG PO HS, (Reported) Ranitidine HCl 150 Mg Tablet, 150 MG PO HS, (Reported) LAST FILLED #30 08-03-19 Patient Home Medication List Home Medication List Reviewed: Yes (NEERAJ VILLA APRN) Review of Systems Review of Systems Constitutional: see HPI Eyes: No Symptoms Reported Ears, Nose, Mouth, Throat: no symptoms reported Respiratory: no symptoms reported Cardiovascular: no symptoms reported Genitourinary: no symptoms reported Musculoskeletal: see HPI Skin: no symptoms reported Psychiatric/Neurological: See HPI Endocrine: No Symptoms Reported Hematologic/Lymphatic: No Symptoms Reported (NEERAJ VILLA APRN) Past Smrlrmv-Xedfvd-Bipiha Hx Patient Social History Drug of Choice: + IV METH USE, THC USE Type Used: Cigarettes 2nd Hand Smoke Exposure: Yes Recent Foreign Travel: No Contact w/Someone Who Travel: No Recent Hopitalizations: No (NEERAJ VILLA APRN) Immunizations Up To Date Tetanus Booster (TDap): Less than 5yrs PED Vaccines UTD: No Date of Pneumonia Vaccine: Jul 13, 2012 Date of Influenza Vaccine: Jul 15, 2019 (NEERAJ VILLA APRN) Seasonal Allergies Seasonal Allergies: No (NEERAJ VILLA APRN) Past Medical History Surgeries: Yes Abdominal, Adenoidectomy, Cardiac, Section, Hysterectomy, Oophorectomy, Tonsillectomy Respiratory: Yes COPD Currently Using CPAP: No Currently Using BIPAP: No Cardiac: Yes Cardiomyopathy, Coronary Artery Disease, Endocarditis, Heart Attack, Hypertension, Peripheral Vascular, Valvular Heart Disease Neurological: Yes Concussion, Seizure Disorder, Stroke, Traumatic Brain Injury 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 Disorders: No Female 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, 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 Sexually Transmitted Disease: No HIV/AIDS: No Genitourinary: Yes Kidney Infection, Bladder Infection, Kidney Stones, Renal Failure, UTI-Chronic Gastrointestinal: Yes Abdominal Hernia, Gastroesophageal Reflux, Pancreatitis, Hepatitis Musculoskeletal: Yes (CHRONIC NECK AND BACK PAIN; POOR AMBULATION) Arthritis, Chronic Back Pain Endocrine: Yes (HGB AIC WAS 6.5 ON 12/23/18) Diabetes, Non-Insulin dep HEENT: Yes (POOR DENTITION) Loss of Vision: Denies Hearing Impairment: Denies Cancer: No Cervical Psychosocial: Yes (EXTENSIVE POLYSUBSTANCE ABUSE) Anxiety, Bipolar, Depression Integumentary: No Blood Disorders: Yes (ANEMIA OF CHRONIC DISEASE) Adverse Reaction/Blood Tranf: No (NEERAJ VILLA APRN) Family Medical History Abdominal aortic aneurysm 03 FATHER Alcoholism 03 FATHER 03 MOTHER 09 SISTER 09 SISTER Cancer 03 FATHER Cataract 03 FATHER 03 MOTHER Chest pain 03 MOTHER Family history: Diabetes mellitus 03 MOTHER Family history: Hypertension 03 MOTHER Family history: Thyroid disorder 03 MOTHER Headache 09 SISTER Heart disease 03 MOTHER History of drug abuse 03 FATHER 09 SISTER Myocardial infarction 03 MOTHER No Family History of: Scott's disease Aphasia Cancer of colon Congenital heart disease Congestive heart failure Cystic fibrosis Dementia Dysphagia Family history: Allergy Family history: Alzheimer's disease Family history: Arthritis Family history: Asthma Family history: Breast disease Family history: Cardiovascular disease Family history: Coronary thrombosis Family history: Gastrointestinal disease Family history: Glaucoma Family history: Osteoporosis Hearing loss Hereditary disease History of - anemia History of - disorder History of - respiratory disease Human immunodeficiency virus (HIV) seropositivity Hypercholesterolemia Infertile Kidney disease Malignant neoplasm of lung Parkinson's disease Prostate cancer Psychotic disorder Seizure disorder Stroke Tuberculosis Visual impairment AAA, Heart Disease, Diabetes (NEERAJ VILLA APRN) Physical Exam Vital Signs Vital Signs - First Documented 10/27/19 10/28/19 21:44 03:00 Temp 36.4 Pulse 81 Resp 18 B/P (MAP) 110/61 (77) Pulse Ox 94 O2 Delivery Room Air O2 Flow Rate 2.00 (MICHAEL BURRELL) Vital Signs Capillary Refill : (NEERAJ VILLA APRN) Height, Weight, BMI Height: 5'3.00" Weight: 155lbs. 8.0oz. 70.598337bd; 29.00 BMI Method:Stated General Appearance: WD/WN, no apparent distress, other (chronically ill, ) HEENT: PERRL/EOMI, normal ENT inspection Neck: non-tender, full range of motion Respiratory: lungs clear, normal breath sounds, no respiratory distress, no accessory muscle use Cardiovascular: regular rate, rhythm, no murmur Gastrointestinal: normal bowel sounds, soft Neurologic/Psychiatric: normal mood/affect, oriented x 3, other (Lethargic, answers questions but difficult to understand) Crainal Nerves: normal hearing, normal speech, PERRL Skin: normal color, warm/dry (NEERAJ VILLA APRN) Procedures/Interventions Date of ETT Placement: Sep 17, 2019 Time of ETT Placement: 1745 (NEERAJ VILLA APRN) Progress/Results/Core Measures Results/Orders Lab Results Laboratory Tests Test 10/27/19 21:48 10/27/19 22:30 Range/Units White Blood Count 13.3 H 4.3-11.0 10^3/uL Red Blood Count 3.36 L 4.35-5.85 10^6/uL Hemoglobin 9.6 L 11.5-16.0 G/DL Hematocrit 30 L 35-52 % Mean Corpuscular Volume 89 80-99 FL Mean Corpuscular Hemoglobin 29 25-34 PG Mean Corpuscular Hemoglobin Concent 32 32-36 G/DL Red Cell Distribution Width 15.6 H 10.0-14.5 % Platelet Count 349 130-400 10^3/uL Mean Platelet Volume 9.6 7.4-10.4 FL Neutrophils (%) (Auto) 81 H 42-75 % Lymphocytes (%) (Auto) 13 12-44 % Monocytes (%) (Auto) 3 0-12 % Eosinophils (%) (Auto) 2 0-10 % Basophils (%) (Auto) 0 0-10 % Neutrophils # (Auto) 10.7 H 1.8-7.8 X 10^3 Lymphocytes # (Auto) 1.8 1.0-4.0 X 10^3 Monocytes # (Auto) 0.4 0.0-1.0 X 10^3 Eosinophils # (Auto) 0.3 0.0-0.3 10^3/uL Basophils # (Auto) 0.0 0.0-0.1 10^3/uL Sodium Level 137 135-145 MMOL/L Potassium Level 4.0 3.6-5.0 MMOL/L Chloride Level 105 98-107 MMOL/L Carbon Dioxide Level 22 21-32 MMOL/L Anion Gap 10 5-14 MMOL/L Blood Urea Nitrogen 19 H 7-18 MG/DL Creatinine 1.25 0.60-1.30 MG/DL Estimat Glomerular Filtration Rate 44 BUN/Creatinine Ratio 15 Glucose Level 158 H 70-105 MG/DL Calcium Level 8.4 L 8.5-10.1 MG/DL Corrected Calcium 8.7 8.5-10.1 MG/DL Total Bilirubin 0.2 0.1-1.0 MG/DL Aspartate Amino Transf (AST/SGOT) 11 5-34 U/L Alanine Aminotransferase (ALT/SGPT) 19 0-55 U/L Alkaline Phosphatase 68 40-136 U/L Total Creatine Kinase 56 29-168 U/L Total Protein 6.7 6.4-8.2 GM/DL Albumin 3.6 3.2-4.5 GM/DL Serum Alcohol < 10 <10 MG/DL Urine Color YELLOW Urine Clarity CLEAR Urine pH 7.0 5-9 Urine Specific [place] 1.010 L 1.016-1.022 Urine Protein NEGATIVE NEGATIVE Urine Glucose (UA) TRACE H NEGATIVE Urine Ketones NEGATIVE NEGATIVE Urine Nitrite NEGATIVE NEGATIVE Urine Bilirubin NEGATIVE NEGATIVE Urine Urobilinogen 0.2 < = 1.0 MG/DL Urine Leukocyte Esterase NEGATIVE NEGATIVE Urine RBC (Auto) NEGATIVE NEGATIVE Urine RBC NONE /HPF Urine WBC 2-5 /HPF Urine Crystals NONE /LPF Urine Bacteria TRACE /HPF Urine Casts PRESENT /LPF Urine Hyaline Casts 0-2 H /LPF Urine Mucus NEGATIVE /LPF Urine Culture Indicated NO Urine Opiates Screen NEGATIVE NEGATIVE Urine Oxycodone Screen NEGATIVE NEGATIVE Urine Methadone Screen NEGATIVE NEGATIVE Urine Propoxyphene Screen NEGATIVE NEGATIVE Urine Barbiturates Screen POSITIVE H NEGATIVE Ur Tricyclic Antidepressants Screen NEGATIVE NEGATIVE Urine Phencyclidine Screen NEGATIVE NEGATIVE Urine Amphetamines Screen NEGATIVE NEGATIVE Urine Methamphetamines Screen NEGATIVE NEGATIVE Urine Benzodiazepines Screen NEGATIVE NEGATIVE Urine Cocaine Screen NEGATIVE NEGATIVE Urine Cannabinoids Screen NEGATIVE NEGATIVE (MICHAEL BURRELL) Micro Results Microbiology 10/27/19 Influenza Types A,B Antigen (JOHANA) - Final, Complete (MICHAEL BURRELL) My Orders Orders - MICHAEL BURRELL Levetiracetam Injection (Keppra Injectio (10/27/19 22:30) Influenza A And B Antigens (10/27/19 22:26) Alcohol (10/27/19 22:40) (MICHAEL BURRELL) Medications Given in ED Current Medications Medications Dose Ordered Sig/Tad Route Start Time Stop Time Status Last Admin Dose Admin Ammonia (Aromatic Spirit) 0.33 ml STK-MED ONCE .ROUTE 10/27/19 22:13 10/27/19 22:17 DC 10/27/19 22:17 0.33 ML Levetiracetam 1000 mg/Sodium Chloride 110 ml @ 440 mls/hr ONCE ONCE IV 10/27/19 22:30 10/27/19 22:44 DC 10/27/19 22:34 440 MLS/HR Lorazepam 2 mg STK-MED ONCE .ROUTE 10/27/19 22:14 10/27/19 22:19 DC 10/27/19 22:19 2 MG (MICHAEL BURRELL) Vital Signs/I&O 10/27/19 10/28/19 21:44 03:00 Temp 36.4 36.7 Pulse 81 86 Resp 18 20 B/P (MAP) 110/61 (77) 121/60 Pulse Ox 94 97 O2 Delivery Room Air Nasal Cannula O2 Flow Rate 2.00 10/28/19 00:00 Intake Total 1260 ml Balance 1260 ml (MICHAEL BURRELL) Progress Progress Note : Time: 01:23 Progress Note Internal Medicine is unwilling to admit the patient if they do not have an ICU bed available because of her extensive neurologic history and difficult to control seizures. Patient is very clear she does not wish to be intubated nor resuscitated. DO NOT RESUSCITATE, DO NOT INTUBATE (MICHAEL BURRELL) Diagnostic Imaging Diagonstic Imaging: Xray Plain Films/CT/US/NM/MRI: chest (1v) Comments No acute cardiopulmonary processes. Reviewed: Reviewed by Me (MICHAEL BURRELL) Departure Impression Primary Impression: Seizure disorder Disposition: 02 XFER SHT-TRM HOSP Condition: Stable Transfer Transfer Reason: Diversion (No ICU) Time Spoke to Accepting Phy: 01:40 Transfer Progress Notes Discussed Case with Triage Nurse. Dr Boyce; IM accepted Transfer Time: 03:18 Transfer Facility: [place], [place]. Method of Transfer: EMS (MICHAEL BURRELL) Departure-Patient Inst. Referrals: [facility] (PCP/Family) Primary Care Physician NEERAJ VILLA APRN Oct 27, 2019 21:53 MICHAEL BURRELL Oct 28, 2019 01:26
[2019-10-27] MEDS ORDERED: NS IV 1000 ML 1,000 ML IV SCH (22:00)
[2019-10-27 22:01] LABS: BASOPHILS % (AUTO) 0 % (0-10); EOSINOPHILS # (AUTO) 0.3 10^3/uL (0.0-0.3); EOSINOPHILS % (AUTO) 2 % (0-10); HEMATOCRIT 30 % (35-52); HEMOGLOBIN 9.6 G/DL (11.5-16.0); LYMPHOCYTES # (AUTO) 1.8 X 10^3 (1.0-4.0); LYMPHOCYTES % (AUTO) 13 % (12-44); MEAN CORPUSCULAR HEMOGLOBIN 29 PG (25-34); MEAN CORPUSCULAR HGB CONC 32 G/DL (32-36); MEAN CORPUSCULAR VOLUME 89 FL (80-99); MEAN PLATELET VOLUME 9.6 FL (7.4-10.4); MONOCYTES # (AUTO) 0.4 X 10^3 (0.0-1.0); MONOCYTES % (AUTO) 3 % (0-12); NEUTROPHILS # (AUTO) 10.7 X 10^3 (1.8-7.8); NEUTROPHILS % (AUTO) 81 % (42-75); PLATELET COUNT 349 10^3/uL (130-400); RED CELL DISTRIBUTION WIDTH 15.6 % (10.0-14.5); WHITE BLOOD COUNT 13.3 10^3/uL (4.3-11.0)
[2019-10-27] MEDS ORDERED: AMMONIA INHALATION 0.33 ML AMP ONE (22:13)
[2019-10-27] MEDS ORDERED: LORazepam INJ 2 MG/ML (ATIVAN) VIAL ONE (22:14)
[2019-10-27 22:20] LABS: ALBUMIN 3.6 GM/DL (3.2-4.5); BILIRUBIN,TOTAL 0.2 MG/DL (0.1-1.0); CALCIUM 8.4 MG/DL (8.5-10.1); CREATININE SERUM 1.25 MG/DL (0.60-1.30); TOTAL PROTEIN 6.7 GM/DL (6.4-8.2)
[2019-10-27] MEDS ORDERED: LEVETIRACETAM INJECTION 1,000 MG in NS (IVPB) 100 ML IV ONE (22:30)
[2019-10-27 22:41] LABS: BILIRUBIN,URINE NEGATIVE (NEGATIVE); CLARITY,URINE CLEAR; COLOR,URINE YELLOW; GLUCOSE, URINE (UA) TRACE (NEGATIVE); KETONES,URINE NEGATIVE (NEGATIVE); LEUKOCYTE ESTERASE ,URINE NEGATIVE (NEGATIVE); NITRITE,URINE NEGATIVE (NEGATIVE); PROTEIN,URINE NEGATIVE (NEGATIVE)
[2019-10-27 23:28] LABS: BACTERIA,URINE TRACE /HPF; HYALINE CASTS, URINE 0-2 /LPF
[2019-10-28 00:02] LABS: AMPHETAMINE SCREEN, URINE NEGATIVE (NEGATIVE); BARBITURATE SCREEN URINE POSITIVE (NEGATIVE); BENZODIAZEPINES SCREEN URINE NEGATIVE (NEGATIVE); CANNABINOID SCREEN, URINE NEGATIVE (NEGATIVE); COCAINE SCREEN URINE NEGATIVE (NEGATIVE); METHADONE STAT NEGATIVE (NEGATIVE); METHAMPHETAMINE SCREEN URINE S NEGATIVE (NEGATIVE); OPIATE SCREEN URINE NEGATIVE (NEGATIVE); OXYCODONE STAT NEGATIVE (NEGATIVE); PROPOXYPHENE STAT NEGATIVE (NEGATIVE); TRICYCLIC ANTIDEPRESSANTS SCRE NEGATIVE (NEGATIVE)
--- NOTE | 2019-10-28 01:42 | NUR ---
face sheet faxed to jose l
[2019-10-28 03:00] VITALS: BP 121/60
--- NOTE | 2019-10-28 07:11 | Diagnostic Imaging Report ---
INDICATION: Seizure COMPARISON: 09/18/2019 FINDINGS: Single view of the chest demonstrates cardiac enlargement without overt pulmonary edema. There is no focal infiltrate, effusion or pneumothorax. Left subclavian Port-A-Cath appears to be in good position. Osseous structures are stable. IMPRESSION: No acute cardiopulmonary findings. Dictated by: Dictated on workstation # [id number]
== END 2019-10-28 03:00 | disposition short-term general hospital (02) ==
LOC: EDUNIT# 21:41 → ER 21:42
DX: G40.909 Epilepsy, unspecified, not intractable, without status epilepticus (principal); J44.9 Chronic obstructive pulmonary disease, unspecified; I10 Essential (primary) hypertension; E11.9 Type 2 diabetes mellitus without complications; I25.10 Atherosclerotic heart disease of native coronary artery without angina pectoris; F41.9 Anxiety disorder, unspecified; F31.9 Bipolar disorder, unspecified; I25.2 Old myocardial infarction; K21.9 Gastro-esophageal reflux disease without esophagitis; D64.9 Anemia, unspecified; Z85.41 Personal history of malignant neoplasm of cervix uteri; Z86.73 Personal history of transient ischemic attack (TIA), and cerebral infarction without residual deficits; Z88.8 Allergy status to other drugs, medicaments and biological substances; Z79.82 Long term (current) use of aspirin; Z77.22 Contact with and (suspected) exposure to environmental tobacco smoke (acute) (chronic); Z87.440 Personal history of urinary (tract) infections; Z87.442 Personal history of urinary calculi; Z90.89 Acquired absence of other organs; Z90.710 Acquired absence of both cervix and uterus; Z82.49 Family history of ischemic heart disease and other diseases of the circulatory system
CPT/HCPCS: 36415; 51702; 71045; 80053; 80306; 80320; 81000; 82550; 85025; 87040; 87804; 96361; 96365; 96375

== ENCOUNTER 2019-11-28 10:26 | Inpatient (IN) | payer MEDICAID ==
[~2019-11-28] VITALS: Ht 162.5 cm; Wt 76.0 kg
[2019-11-28] VITALS (7 sets, daily range): BP systolic 93–118; BP diastolic 49–61
[~2019-11-28 10:26] MED LIST changes: +LORA-404 PO
[2019-11-28] MEDS ORDERED: NS IV 1000 ML 1,000 ML IV SCH (10:35)
[2019-11-28] MEDS ORDERED: fentaNYL INJECTION 100 MCG/2 ML AMP IVP ONE ×2 (10:45→11:45)
[2019-11-28] MEDS ORDERED: ONDANSETRON 4 MG/2 ML (SDV) Z0FRAN IVP ONE (10:45)
[2019-11-28 10:52] LABS: BASOPHILS % (AUTO) 0 % (0-10); EOSINOPHILS % (AUTO) 1 % (0-10); HEMATOCRIT 26 % (35-52); HEMOGLOBIN 8.5 G/DL (11.5-16.0); LYMPHOCYTES # (AUTO) 1.1 X 10^3 (1.0-4.0); LYMPHOCYTES % (AUTO) 21 % (12-44); MEAN CORPUSCULAR HEMOGLOBIN 28 PG (25-34); MEAN CORPUSCULAR HGB CONC 32 G/DL (32-36); MEAN CORPUSCULAR VOLUME 87 FL (80-99); MEAN PLATELET VOLUME 10.1 FL (7.4-10.4); MONOCYTES # (AUTO) 0.5 X 10^3 (0.0-1.0); MONOCYTES % (AUTO) 9 % (0-12); NEUTROPHILS # (AUTO) 3.8 X 10^3 (1.8-7.8); NEUTROPHILS % (AUTO) 69 % (42-75); PLATELET COUNT 195 10^3/uL (130-400); RED CELL DISTRIBUTION WIDTH 14.9 % (10.0-14.5); WHITE BLOOD COUNT 5.5 10^3/uL (4.3-11.0)
[2019-11-28 11:05] LABS: INR 1.1 (0.8-1.4); PROTHROMBIN TIME PATIENT 14.7 SEC (12.2-14.7)
[2019-11-28 11:21] LABS: ALBUMIN 3.6 GM/DL (3.2-4.5); BILIRUBIN,TOTAL 0.2 MG/DL (0.1-1.0); CALCIUM 8.2 MG/DL (8.5-10.1); CREATININE SERUM 2.6 MG/DL (0.60-1.30); POTASSIUM 4.4 MMOL/L (3.6-5.0); TOTAL PROTEIN 6.8 GM/DL (6.4-8.2)
[2019-11-28 11:28] LABS: BILIRUBIN,URINE NEGATIVE (NEGATIVE); CLARITY,URINE CLOUDY; COLOR,URINE YELLOW; GLUCOSE, URINE (UA) NEGATIVE (NEGATIVE); KETONES,URINE NEGATIVE (NEGATIVE); LEUKOCYTE ESTERASE ,URINE 3+ (NEGATIVE); NITRITE,URINE NEGATIVE (NEGATIVE); PROTEIN,URINE 1+ (NEGATIVE)
[2019-11-28 11:36] LABS: BACTERIA,URINE LARGE /HPF; SQUAMOUS EPITHELIAL CELL,UR RARE /HPF; WBC,URINE TNTC /HPF
[2019-11-28 12:06] LABS: AMPHETAMINE SCREEN, URINE POSITIVE (NEGATIVE); BARBITURATE SCREEN URINE POSITIVE (NEGATIVE); BENZODIAZEPINES SCREEN URINE NEGATIVE (NEGATIVE); CANNABINOID SCREEN, URINE NEGATIVE (NEGATIVE); COCAINE SCREEN URINE NEGATIVE (NEGATIVE); METHADONE STAT NEGATIVE (NEGATIVE); METHAMPHETAMINE SCREEN URINE S POSITIVE (NEGATIVE); OPIATE SCREEN URINE NEGATIVE (NEGATIVE); OXYCODONE STAT NEGATIVE (NEGATIVE); PROPOXYPHENE STAT NEGATIVE (NEGATIVE); TRICYCLIC ANTIDEPRESSANTS SCRE POSITIVE (NEGATIVE)
--- NOTE | 2019-11-28 12:08 | Diagnostic Imaging Report ---
INDICATION: Altered mental status. COMPARISON: Comparison is made with the prior study from October 27, 2019. FINDINGS: When compared to the prior examination, there has been some slight improvement in aeration at the left lung base. Some previous discoid atelectasis appears to have resolved. There are chronic interstitial changes within the lungs. There is no dense alveloar consolidation. There is no significant effusion or evidence of pneumothorax. Heart size and mediastinal contours are stable. Pulmonary arteries appear prominent which may reflect pulmonary arterial hypertension. A left-sided subclavian port is unchanged. IMPRESSION: 1. Apparent chronic interstitial lung disease with prominent pulmonary arteries suggesting pulmonary arterial hypertension. No acute cardiopulmonary process is evident. Dictated by: Dictated on workstation # [id number]
--- NOTE | 2019-11-28 12:09 | Diagnostic Imaging Report ---
PROCEDURE: CT head without contrast. TECHNIQUE: Multiple contiguous axial images were obtained through the brain without the use of intravenous contrast. Auto Exposure Controls were utilized during the CT exam to meet ALARA standards for radiation dose reduction. INDICATION: Altered mental status. History of seizures. COMPARISON: Comparison made with MRI from 09/16/2019. FINDINGS: There are no CT findings of an acute intracranial abnormality. There is no evidence of intracranial hemorrhage. There is no mass effect or shift. There is no hydrocephalus. There are no findings of loss of shook-white differentiation. Some tiny regions of low density within the white matter compatible with T2 signal changes on prior MRI. There is no abnormal extra-axial fluid collection. The basal cisterns appear patent. There are atherosclerotic calcifications within the vessels of the skull base. There have been previous operative changes of a left mastoidectomy. The right mastoids are clear. Paranasal sinuses appear clear. Orbital contents unremarkable. IMPRESSION: 1. No CT evidence of an acute intracranial abnormality. Dictated by: Dictated on workstation # [id number]
--- NOTE | 2019-11-28 12:23 | ED General ---
General Chief Complaint: Abdominal/GI Problems Stated Complaint: ABD PAIN/AMS Nursing Triage Note: PT BROUGHT IN FROM HOME BY [facility] WITH COMPLAINT OF ABD PAIN AND ALTERED MENTAL STATUS. PER FAMILY, STATES SYMPTOMS STARTED LAST NIGHT. Nursing Sepsis Screen: No Definite Risk Source of Information: Patient, EMS Exam Limitations: Physical Impairments History of Present Illness Date Seen by Provider: Nov 28, 2019 Time Seen by Provider: 10:27 Initial Comments This 59-year-old woman presents to the emergency room via EMS after being found at home in her bed with decreased responsiveness by her neighbors. They report last night at dinner she was not quite herself and did not answer all questions appropriately. This morning they found her with fever and altered mental status. She was in her bed so there was no suspicion of trauma. She is febrile. Patient does have a history of polysubstance abuse among multiple medical problems. She does have some dystonic movements and abnormal speech at baseline. Allergies and Home Medications Allergies Coded Allergies: nitrous oxide (Verified Allergy, Unknown, 06/08/07) Home Medications Acetaminophen 500 Mg Tablet, 1,000 MG PO Q6H PRN for PAIN-MILD, (Reported) Amlodipine Besylate 10 Mg Tablet, 10 MG PO DAILY, (Reported) LAST FILLED #30 07-05-19 Aspirin 81 Mg Tab.chew, 81 MG PO DAILY, (Reported) Clonidine HCl 0.2 Mg Tablet, 0.4 MG PO BID, (Reported) TAKES 2 (0.2MG) TABLETS Cyclobenzaprine HCl 10 Mg Tablet, 10 MG PO TID PRN for MUSCLE SPASMS, (Reported) Hydralazine HCl 50 Mg Tablet, 50 MG PO TID, (Reported) Levetiracetam 500 Mg Tablet, 500 MG PO BID, (Reported) Loratadine 10 Mg Tablet, 10 MG PO DAILY, (Reported) Lorazepam 0.5 Mg Tablet, 0.5 MG PO TID PRN for ANXIETY, (Reported) Losartan Potassium 100 Mg Tablet, 100 MG PO DAILY, (Reported) Metoprolol Succinate 100 Mg Tab.er.24h, 100 MG PO DAILY, (Reported) Oxcarbazepine 600 Mg Tablet, 600 MG PO BID, (Reported) Prazosin HCl 1 Mg Capsule, 1 MG PO HS, (Reported) Ranitidine HCl 150 Mg Tablet, 150 MG PO HS, (Reported) LAST FILLED #30 08-03-19 Patient Home Medication List Home Medication List Reviewed: Yes Review of Systems Review of Systems Constitutional: see HPI, fever EENTM: other (Oropharynx dry) Respiratory: no symptoms reported Cardiovascular: no symptoms reported Gastrointestinal: see HPI, abdominal pain Genitourinary: no symptoms reported : No Musculoskeletal: no symptoms reported Skin: no symptoms reported Psychiatric/Neurological: See HPI Hematologic/Lymphatic: No Symptoms Reported Immunological/Allergic: no symptoms reported Past Myuolpm-Mvsqce-Gsaqxw Hx Past Med/Social Hx: Reviewed Nursing Past Med/Soc Hx Patient Social History Alcohol Use: Denies Use Recreational Drug Use: Yes Drug of Choice: + IV METH USE, THC USE Smoking Status: Never a Smoker Type Used: Cigarettes 2nd Hand Smoke Exposure: Yes Recent Foreign Travel: No Contact w/Someone Who Travel: No Recent Infectious Disease Expo: No Recent Hopitalizations: No (10/09/19) Immunizations Up To Date Tetanus Booster (TDap): Less than 5yrs PED Vaccines UTD: No Date of Pneumonia Vaccine: Jul 13, 2012 Date of Influenza Vaccine: Jul 15, 2019 Seasonal Allergies Seasonal Allergies: No Past Medical History Surgeries: Yes Abdominal, Adenoidectomy, Cardiac, Section, Hysterectomy, Oophorectomy, Tonsillectomy Respiratory: Yes COPD Currently Using CPAP: No Currently Using BIPAP: No Cardiac: Yes Cardiomyopathy, Coronary Artery Disease, Endocarditis, Heart Attack, Hypertension, Peripheral Vascular, Valvular Heart Disease Neurological: Yes Concussion, Seizure Disorder, Stroke, Traumatic Brain Injury 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 Disorders: No 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, Menopausal Sexually Transmitted Disease: No HIV/AIDS: No Genitourinary: Yes Kidney Infection, Bladder Infection, Kidney Stones, Renal Failure, UTI-Chronic Gastrointestinal: Yes Abdominal Hernia, Gastroesophageal Reflux, Pancreatitis, Hepatitis Musculoskeletal: Yes (CHRONIC NECK AND BACK PAIN; POOR AMBULATION) Arthritis, Chronic Back Pain Endocrine: Yes (HGB AIC WAS 6.5 ON 12/23/18) Diabetes, Non-Insulin dep HEENT: Yes (POOR DENTITION) Loss of Vision: Denies Hearing Impairment: Denies Cancer: No Cervical Psychosocial: Yes (EXTENSIVE POLYSUBSTANCE ABUSE) Anxiety, Bipolar, Depression Integumentary: No Blood Disorders: Yes (ANEMIA OF CHRONIC DISEASE) Adverse Reaction/Blood Tranf: No Family Medical History Reviewed Nursing Family Hx Abdominal aortic aneurysm 03 FATHER Alcoholism 03 FATHER 03 MOTHER 09 SISTER 09 SISTER Cancer 03 FATHER Cataract 03 FATHER 03 MOTHER Chest pain 03 MOTHER Family history: Diabetes mellitus 03 MOTHER Family history: Hypertension 03 MOTHER Family history: Thyroid disorder 03 MOTHER Headache 09 SISTER Heart disease 03 MOTHER History of drug abuse 03 FATHER 09 SISTER Myocardial infarction 03 MOTHER No Family History of: Isael's disease Aphasia Cancer of colon Congenital heart disease Congestive heart failure Cystic fibrosis Dementia Dysphagia Family history: Allergy Family history: Alzheimer's disease Family history: Arthritis Family history: Asthma Family history: Breast disease Family history: Cardiovascular disease Family history: Coronary thrombosis Family history: Gastrointestinal disease Family history: Glaucoma Family history: Osteoporosis Hearing loss Hereditary disease History of - anemia History of - disorder History of - respiratory disease Human immunodeficiency virus (HIV) seropositivity Hypercholesterolemia Infertile Kidney disease Malignant neoplasm of lung Parkinson's disease Prostate cancer Psychotic disorder Seizure disorder Stroke Tuberculosis Visual impairment AAA, Heart Disease, Diabetes Physical Exam-Suspected Sepsis Physical Exam Vital Signs Vital Signs - First Documented 11/28/19 11/28/19 10:28 14:22 Temp 39.3 Pulse 84 Resp 22 B/P (MAP) 134/119 (124) Pulse Ox 96 O2 Delivery Room Air O2 Flow Rate 2.00 Capillary Refill : Less Than 3 Seconds Blood Pressure Mean: 124 Height, Weight, BMI Height: 5'3.00" Weight: 155lbs. 8.0oz. 70.950675al; 30.00 BMI Method:Stated General Appearance: WD/WN, Moderate Distress HEENT: PERRL/EOMI, Normal ENT Inspection, Other (Mucous membranes dry) Neck: Normal Inspection Respiratory: Lungs Clear, Normal Breath Sounds, No Accessory Muscle Use, No Respiratory Distress Cardiovascular: Regular Rate, Rhythm, No Edema, No Murmur, Normal Peripheral Pulses Gastrointestinal: Normal Bowel Sounds, Soft, Distended (Mildly), Tenderness (Diffusely) Extremity: Normal Inspection, No Pedal Edema Neurologic/Psychiatric: Alert, Other (Seems disoriented. Speech is difficult to understand but she does answer some questions appropriately. There are no focal motor deficits observed) Skin: normal color, warm/dry, other (Healing incisional wound on the abdomen) Focused Exam Lactate Level 11/28/19 10:37: Lactic Acid Level 0.69 Lactic Acid Level Procedures/Interventions Date of ETT Placement: Sep 17, 2019 Time of ETT Placement: 1745 Progress/Results/Core Measures Suspected Sepsis Recent Fever Within 48 Hours: Yes Infection Criteria Present: None New/Unexplained Altered Menta: No Sepsis Screen: No Definite Risk SIRS Temperature: Pulse: 84 Respiratory Rate: 22 Laboratory Tests 11/28/19 10:37: White Blood Count 5.5 Blood Pressure 134 /119 Mean: 124 11/28/19 10:37: Lactic Acid Level 0.69 Laboratory Tests 11/28/19 10:37: Creatinine 2.60H, INR Comment 1.1, Platelet Count 195, Total Bilirubin 0.2 Results/Orders Lab Results Laboratory Tests Test 11/28/19 10:37 11/28/19 11:20 Range/Units White Blood Count 5.5 4.3-11.0 10^3/uL Red Blood Count 3.01 L 4.35-5.85 10^6/uL Hemoglobin 8.5 L 11.5-16.0 G/DL Hematocrit 26 L 35-52 % Mean Corpuscular Volume 87 80-99 FL Mean Corpuscular Hemoglobin 28 25-34 PG Mean Corpuscular Hemoglobin Concent 32 32-36 G/DL Red Cell Distribution Width 14.9 H 10.0-14.5 % Platelet Count 195 130-400 10^3/uL Mean Platelet Volume 10.1 7.4-10.4 FL Neutrophils (%) (Auto) 69 42-75 % Lymphocytes (%) (Auto) 21 12-44 % Monocytes (%) (Auto) 9 0-12 % Eosinophils (%) (Auto) 1 0-10 % Basophils (%) (Auto) 0 0-10 % Neutrophils # (Auto) 3.8 1.8-7.8 X 10^3 Lymphocytes # (Auto) 1.1 1.0-4.0 X 10^3 Monocytes # (Auto) 0.5 0.0-1.0 X 10^3 Eosinophils # (Auto) 0.0 0.0-0.3 10^3/uL Basophils # (Auto) 0.0 0.0-0.1 10^3/uL Prothrombin Time 14.7 12.2-14.7 SEC INR Comment 1.1 0.8-1.4 Activated Partial Thromboplast Time 46 H 24-35 SEC Sodium Level 134 L 135-145 MMOL/L Potassium Level 4.4 3.6-5.0 MMOL/L Chloride Level 104 98-107 MMOL/L Carbon Dioxide Level 18 L 21-32 MMOL/L Anion Gap 12 5-14 MMOL/L Blood Urea Nitrogen 55 H 7-18 MG/DL Creatinine 2.60 H 0.60-1.30 MG/DL Estimat Glomerular Filtration Rate 19 BUN/Creatinine Ratio 21 Glucose Level 126 H 70-105 MG/DL Lactic Acid Level 0.69 0.50-2.00 MMOL/L Calcium Level 8.2 L 8.5-10.1 MG/DL Corrected Calcium 8.5 8.5-10.1 MG/DL Total Bilirubin 0.2 0.1-1.0 MG/DL Aspartate Amino Transf (AST/SGOT) 14 5-34 U/L Alanine Aminotransferase (ALT/SGPT) 12 0-55 U/L Alkaline Phosphatase 62 40-136 U/L C-Reactive Protein High Sensitivity 21.96 H 0.00-0.50 MG/DL Total Protein 6.8 6.4-8.2 GM/DL Albumin 3.6 3.2-4.5 GM/DL Lipase 24 8-78 U/L Urine Color YELLOW Urine Clarity CLOUDY Urine pH 6.0 5-9 Urine Specific [place] 1.020 1.016-1.022 Urine Protein 1+ H NEGATIVE Urine Glucose (UA) NEGATIVE NEGATIVE Urine Ketones NEGATIVE NEGATIVE Urine Nitrite NEGATIVE NEGATIVE Urine Bilirubin NEGATIVE NEGATIVE Urine Urobilinogen 0.2 < = 1.0 MG/DL Urine Leukocyte Esterase 3+ H NEGATIVE Urine RBC (Auto) NEGATIVE NEGATIVE Urine RBC NONE /HPF Urine WBC TNTC H /HPF Urine Squamous Epithelial Cells RARE /HPF Urine Crystals NONE /LPF Urine Bacteria LARGE H /HPF Urine Casts NONE /LPF Urine Mucus NEGATIVE /LPF Urine Culture Indicated CULTURE PENDING Urine Opiates Screen NEGATIVE NEGATIVE Urine Oxycodone Screen NEGATIVE NEGATIVE Urine Methadone Screen NEGATIVE NEGATIVE Urine Propoxyphene Screen NEGATIVE NEGATIVE Urine Barbiturates Screen POSITIVE H NEGATIVE Ur Tricyclic Antidepressants Screen POSITIVE H NEGATIVE Urine Phencyclidine Screen NEGATIVE NEGATIVE Urine Amphetamines Screen POSITIVE H NEGATIVE Urine Methamphetamines Screen POSITIVE H NEGATIVE Urine Benzodiazepines Screen NEGATIVE NEGATIVE Urine Cocaine Screen NEGATIVE NEGATIVE Urine Cannabinoids Screen NEGATIVE NEGATIVE Micro Results Microbiology 11/28/19 Influenza Types A,B Antigen (JOHANA) - Final, Complete My Orders Orders - SANTHOSH LOWE MD Ed Iv/Invasive Line Start (11/28/19 10:35) Ns Iv 1000 Ml (Sodium Chloride 0.9%) (11/28/19 10:35) Fentanyl Injection (Sublimaze Injection (11/28/19 10:45) Cbc With Automated Diff (11/28/19 10:35) Comprehensive Metabolic Panel (11/28/19 10:35) Blood Culture (11/28/19 10:35) Sputum Culture (11/28/19 10:35) Urinalysis (11/28/19 10:35) Urine Culture (11/28/19 10:35) Protime With Inr (11/28/19 10:35) Partial Thromboplastin Time (11/28/19 10:35) Chest 1 View, Ap/Pa Only (11/28/19 10:35) Ed Iv/Invasive Line Start (11/28/19 10:35) Ed Iv/Invasive Line Start (11/28/19 10:35) Vital Signs Adult Sepsis Patie Q15M (11/28/19 10:35) O2 (11/28/19 10:35) Remove Rings In Anticipation O (11/28/19 10:35) Lactic Acid Analyzer (11/28/19 10:35) Influenza A And B Antigens (11/28/19 10:35) Hs C Reactive Protein (11/28/19 10:35) Lipase (11/28/19 10:35) Ondansetron Injection (Zofran Injectio (11/28/19 10:45) Ashford Cath (11/28/19 10:35) Ct Head Wo (11/28/19 11:34) Fentanyl Injection (Sublimaze Injection (11/28/19 11:45) Ct Chest/Abdomen/Pelvis Wo (11/28/19 11:40) Drug Screen Stat (Urine) (11/28/19 11:42) Piperacillin Sodium/Tazobactam (Zosyn Vi (11/28/19 12:30) Lorazepam Injection (Ativan Injection) (11/28/19 12:45) Medications Given in ED Current Medications Medications Dose Ordered Sig/Tad Route Start Time Stop Time Status Last Admin Dose Admin Fentanyl Citrate 50 mcg ONCE ONCE IVP 11/28/19 10:45 11/28/19 10:46 DC 11/28/19 10:47 50 MCG Fentanyl Citrate 50 mcg ONCE ONCE IVP 11/28/19 11:45 11/28/19 11:46 DC 11/28/19 12:16 50 MCG Ondansetron HCl 8 mg ONCE ONCE IVP 11/28/19 10:45 11/28/19 10:46 DC 11/28/19 10:47 8 MG Piperacillin Sod/ Tazobactam Sod 4.5 gm/Sodium Chloride 100 ml @ 200 mls/hr ONCE ONCE IV 11/28/19 12:30 11/28/19 12:59 DC 11/28/19 13:13 200 MLS/HR Vital Signs/I&O 11/28/19 11/28/19 11/28/19 11/28/19 10:28 14:22 14:41 15:02 Temp 39.3 37.4 Pulse 84 84 76 69 Resp 22 20 20 B/P (MAP) 134/119 (124) 88/46 103/58 (73) Pulse Ox 96 96 100 O2 Delivery Room Air Nasal Cannula O2 Flow Rate 2.00 4.00 11/28/19 11/28/19 11/28/19 11/28/19 15:24 15:29 15:30 16:00 Temp 37.1 Pulse 68 Resp 21 B/P (MAP) 100/61 (74) Pulse Ox 100 O2 Delivery OxyMask OxyMask OxyMask O2 Flow Rate 3.00 3.00 3.00 11/28/19 11/28/19 11/28/19 11/28/19 16:00 16:00 16:30 17:00 Pulse 71 72 77 Resp 20 18 24 B/P (MAP) 101/50 (67) Pulse Ox 98 96 99 O2 Delivery Room Air OxyMask OxyMask OxyMask O2 Flow Rate 3.00 3.00 3.00 11/28/19 11/28/19 11/28/19 11/28/19 17:30 18:00 18:30 20:22 Temp 38.0 Pulse 77 81 81 Resp 24 20 21 B/P (MAP) 108/57 (74) 98/57 (71) 93/49 (64) Pulse Ox 90 96 92 O2 Delivery OxyMask OxyMask OxyMask O2 Flow Rate 3.00 3.00 3.00 11/28/19 21:22 Pulse Ox 96 O2 Delivery OxyMask O2 Flow Rate 2.00 Capillary Refill : Less Than 3 Seconds Blood Pressure Mean: 124 Progress Note : Progress Note Septic workup was pursued. Patient did not meet SIRS criteria for diagnosis of sepsis. She was found to have urinary tract infection and was treated appropriately. She was also found to be in acute renal failure. She received 1 L of IV fluid from EMS and a second liter in the emergency room. Fentanyl was administered for pain. She was also found to be methamphetamine positive. She was admitted to the hospital for management of these issues and antibiotic therapy was started with Zosyn. CT of the chest, abdomen and pelvis found no surgical emergencies. Diagnostic Imaging Diagonstic Imaging: CT Plain Films/CT/US/NM/MRI: head Comments CT head viewed by me and report reviewed. See report below: NAME: KEREN MAX [facility] REC#: [id number] PT STATUS: REG ER : 1960 PHYSICIAN: SANTHOSH LOWE MD ADMIT DATE: 11/28/19/ER Draft Date of Exam:11/28/19 CT HEAD WO PROCEDURE: CT head without contrast. TECHNIQUE: Multiple contiguous axial images were obtained through the brain without the use of intravenous contrast. Auto Exposure Controls were utilized during the CT exam to meet ALARA standards for radiation dose reduction. INDICATION: Altered mental status. History of seizures. COMPARISON: Comparison made with MRI from 09/16/2019. FINDINGS: There are no CT findings of an acute intracranial abnormality. There is no evidence of intracranial hemorrhage. There is no mass effect or shift. There is no hydrocephalus. There are no findings of loss of shook-white differentiation. Some tiny regions of low density within the white matter compatible with T2 signal changes on prior MRI. There is no abnormal extra-axial fluid collection. The basal cisterns appear patent. There are atherosclerotic calcifications within the vessels of the skull base. There have been previous operative changes of a left mastoidectomy. The right mastoids are clear. Paranasal sinuses appear clear. Orbital contents unremarkable. IMPRESSION: 1. No CT evidence of an acute intracranial abnormality. Dictated on workstation # [id number] Dict: 11/28/19 1158 Trans: 11/28/19 1209 [id number] Interpreted by: CORTNEY REYES MD Diagonstic Imaging: Xray Plain Films/CT/US/NM/MRI: chest Comments Chest x-ray viewed by me and report reviewed. See report below: NAME: KEREN MAX [facility] REC#: [id number] PT STATUS: REG ER : 1960 PHYSICIAN: SANTHOSH LOWE MD ADMIT DATE: 11/28/19/ER Signed Date of Exam:11/28/19 CHEST 1 VIEW, AP/PA ONLY INDICATION: Altered mental status. COMPARISON: Comparison is made with the prior study from October 27, 2019. FINDINGS: When compared to the prior examination, there has been some slight improvement in aeration at the left lung base. Some previous discoid atelectasis appears to have resolved. There are chronic interstitial changes within the lungs. There is no dense alveloar consolidation. There is no significant effusion or evidence of pneumothorax. Heart size and mediastinal contours are stable. Pulmonary arteries appear prominent which may reflect pulmonary arterial hypertension. A left-sided subclavian port is unchanged. IMPRESSION: 1. Apparent chronic interstitial lung disease with prominent pulmonary arteries suggesting pulmonary arterial hypertension. No acute cardiopulmonary process is evident. Dictated by: Dictated on workstation # [id number] Dict: 11/28/19 1144 Trans: 11/28/19 1216 [id number] [id number] Interpreted by: CORTNEY REYES MD Electronically signed by: CORTNEY REYES MD 11/28/19 1216 Departure Communication (Admissions) Time/Spoke to Admitting Phy: 13:35 Dr. Combs Impression Primary Impression: Acute renal failure Qualified Codes: N17.9 - Acute kidney failure, unspecified Additional Impressions: Urinary tract infection Qualified Codes: N39.0 - Urinary tract infection, site not specified Generalized abdominal pain Altered mental status Qualified Codes: R41.82 - Altered mental status, unspecified Methamphetamine abuse Disposition: ADMITTED INPATIENT Condition: Improved Admissions Decision to Admit Reason: Admit from ER (General) Decision to Admit/Date: Nov 28, 2019 Time/Decision to Admit Time: 10:30 Departure-Patient Inst. Referrals: [facility] [place] Primary Care Physician SANTOHSH LOWE MD Nov 28, 2019 12:23
[2019-11-28] MEDS ORDERED: PIPERACILLIN SODIUM/TAZOBACTAM 4.5 GM in NS (IVPB) 100 ML IV ONE (12:30)
--- NOTE | 2019-11-28 12:40 | Diagnostic Imaging Report ---
PROCEDURE: CT chest, abdomen, and pelvis without contrast. TECHNIQUE: Multiple contiguous axial images were obtained through the chest, abdomen, and pelvis without the use of intravenous contrast. Auto Exposure Controls were utilized during the CT exam to meet ALARA standards for radiation dose reduction. INDICATION: Abdominal pain. FINDINGS: There are interstitial changes present within the lungs but no findings of alveolar consolidation. There is no effusion. There is no pneumothorax. Cardiomegaly is present. There are small non pathologically enlarged mediastinal lymph nodes. Axillae are unremarkable. The noncontrast appearance of the liver demonstrates no focal abnormality. There are no findings of gallbladder distention or biliary dilatation. The pancreas is atrophic without focal abnormality. The spleen appears normal in size. There is no adrenal mass. The right kidney demonstrates some apparent atrophy. There are no findings of hydronephrosis. There are few fluid-filled loops of small bowel. There is gaseous distention of the colon with a moderate degree of stool within the right colon and transverse colon. The sigmoid and rectum are decompressed. There are no findings of pericolonic fat stranding. Urinary bladder is decompressed by Ashford catheter. No pelvic mass is evident. There are no findings of pathologically enlarged abdominal or pelvic lymph nodes. The aorta is normal in caliber. There are no findings of an acute or suspicious osseous abnormality within the spine. IMPRESSION: 1. Gas-distended colon without findings of significant dilation. There are also fluid-filled loops of small bowel without features of obstruction. There is moderate stool within the right colon and transverse colon with the decompressed sigmoid colon and rectum. 2. No findings of abscess, free fluid, free air, or focal inflammation within the omentum or mesentery. 3. No evidence of adenopathy. 4. Other than right renal atrophy, solid organs of the abdomen appear unremarkable by noncontrast CT. 5. No acute process evident within the chest. Dictated by: Dictated on workstation # [id number]
[2019-11-28] MEDS ORDERED: LORazepam INJ 2 MG/ML (ATIVAN) VIAL IVP ONE (12:45)
[2019-11-28] MEDS ORDERED: NS IV 1000 ML 1,000 ML ONE (14:22)
--- NOTE | 2019-11-28 14:28 | History & Physical-Hospitalist ---
History of Present Illness HPI/Chief Complaint This is a 59-year-old white female who is brought to our emergency room by EMS after her neighbors noted that she wasn't up and around. They had seen her the night before and said that she was not her usual self. The patient is poorly responsive and unable to follow direction or give me any additional information at the time of my interview. Source: RN/MD Exam Limitations: clinical condition Date Seen 11/28/19 Time Seen by a Provider: 14:20 Attending Physician Radha Combs MD PCP [facility] Referring Physician Date of Admission Nov 28, 2019 at 13:35 Home Medications & Allergies Home Medications Reviewed patient Home Medication Reconciliation performed by pharmacy medication reconciliations telemetry technician and/or nursing. Patients Allergies have been reviewed. Allergies Allergies Coded Allergies nitrous oxide (Verified Allergy, Unknown, 06/08/07) Past Xwrcrkf-Rpppap-Uklagk Hx Past Med/Social Hx: Reviewed Nursing Past Med/Soc Hx Patient Social History Marrital Status: single Employed/Student: unemployed Alcohol Use: Denies Use Recreational 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) Drug of Choice: + IV METH USE, THC USE Smoking Status: Never a Smoker Type Used: Cigarettes 2nd Hand Smoke Exposure: Yes Recent Foreign Travel: No Contact w/other who traveled: No Recent Hopitalizations: No (10/09/19) Recent Infectious Disease Expo: No Immunizations Up To Date Tetanus Booster (TDap): Less than 5yrs Pediatric: No Date of Pneumonia Vaccine: Jul 13, 2012 Date of Influenza Vaccine: Jul 15, 2019 Seasonal Allergies Seasonal Allergies: No Past Medical History Surgeries: Abdominal, Adenoidectomy, Cardiac, Section, Hysterectomy, Oophorectomy, Tonsillectomy Respiratory: Pneumonia Currently Using CPAP: No Currently Using BIPAP: No Cardiac: Cardiomyopathy, Coronary Artery Disease, Endocarditis, Heart Attack, Hypertension, Peripheral Vascular, Valvular Heart Disease Neurological: Concussion, Seizure Disorder, Stroke, Traumatic Brain Injury 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: No Sexually Transmitted Disease: No HIV/AIDS: No Female 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 Hysterectomy, Menopausal Genitourinary: Kidney Infection, Bladder Infection, Kidney Stones, Renal Failure, UTI-Chronic Gastrointestinal: Abdominal Hernia, Gastroesophageal Reflux, Pancreatitis, Hepatitis Musculoskeletal: Arthritis, Chronic Back Pain Endocrine: Diabetes, Non-Insulin dep Loss of Vision: Denies Hearing Impairment: Denies Cancer: Cervical Psychosocial: Anxiety, Bipolar, Depression History of Blood Disorders: Yes (ANEMIA OF CHRONIC DISEASE) Adverse Reaction to Blood New: No Family History Abdominal aortic aneurysm 03 FATHER Alcoholism 03 FATHER 03 MOTHER 09 SISTER 09 SISTER Cancer 03 FATHER Cataract 03 FATHER 03 MOTHER Chest pain 03 MOTHER Family history: Diabetes mellitus 03 MOTHER Family history: Hypertension 03 MOTHER Family history: Thyroid disorder 03 MOTHER Headache 09 SISTER Heart disease 03 MOTHER History of drug abuse 03 FATHER 09 SISTER Myocardial infarction 03 MOTHER No Family History of: Coden's disease Aphasia Cancer of colon Congenital heart disease Congestive heart failure Cystic fibrosis Dementia Dysphagia Family history: Allergy Family history: Alzheimer's disease Family history: Arthritis Family history: Asthma Family history: Breast disease Family history: Cardiovascular disease Family history: Coronary thrombosis Family history: Gastrointestinal disease Family history: Glaucoma Family history: Osteoporosis Hearing loss Hereditary disease History of - anemia History of - disorder History of - respiratory disease Human immunodeficiency virus (HIV) seropositivity Hypercholesterolemia Infertile Kidney disease Malignant neoplasm of lung Parkinson's disease Prostate cancer Psychotic disorder Seizure disorder Stroke Tuberculosis Visual impairment AAA, Heart Disease, Diabetes Review of Systems ROS-Unable to Obtain: Patient unable to provide any information Constitutional: no symptoms reported Physical Exam Physical Exam Vital Signs Vital Signs - First Documented 11/28/19 11/28/19 10:28 14:22 Temp 39.3 Pulse 84 Resp 22 B/P (MAP) 134/119 (124) Pulse Ox 96 O2 Delivery Room Air O2 Flow Rate 2.00 Capillary Refill : Less Than 3 Seconds Height, Weight, BMI Height: 5'3.00" Weight: 155lbs. 8.0oz. 70.582195nq; 30.00 BMI Method:Stated General Appearance: Chronically ill, Other (Yovani movements) HEENT: Other (Poor dentition) Neck: Limited Range of Motion Respiratory: Lungs Clear, Normal Breath Sounds, No Accessory Muscle Use, No Respiratory Distress Cardiovascular: Regular Rate, Rhythm, No Gallop, Systolic Murmur Gastrointestinal: Normal Bowel Sounds, No Organomegaly, Soft Rectal: Deferred Extremity: No Pedal Edema Neurologic/Psychiatric: Other (Unable to follow direction but moving all extremities) Skin: Normal Color, Warm/Dry Results Results/Procedures Labs Laboratory Tests 11/28/19 10:37 11/29/19 11:58 Patient resulted labs reviewed. Imaging: Reviewed Imaging Report Assessment/Plan Admission Diagnosis Mental status change Acute on chronic renal failure with atrophy of the right kidney Polysubstance abuse with drug screen showing meth Coronary artery disease History of traumatic brain injury Anemia of uncertain etiology Hyperglycemia Plan for aggressive IV fluid hydration follow the mental status; sepsis is a possibility since she is febrile with renal insufficiency however this may be just secondary to dehydration. Prognosis is guarded. Admission Status: Observation Copy Copies To 1: [facility]/RADHA AYALA MD Nov 28, 2019 14:28
[2019-11-28] MEDS ORDERED: ONDANSETRON 4 MG/2 ML (SDV) Z0FRAN IV PRN (15:00)
[2019-11-28] MEDS ORDERED: CATHETER FLUSH 10 ML SYR IV PRN (15:15)
[2019-11-28] MEDS: NS IV 1000 ML 1,000 ML IV SCH ×2 (15:59→21:10)
[2019-11-28] MEDS: fentaNYL INJECTION 100 MCG/2 ML AMP IV PRN (16:15)
[2019-11-28] MEDS ORDERED: LORazepam 0.5 MG (ATIVAN) TABLET ONE (17:39)
[2019-11-28] MEDS: LORazepam 0.5 MG (ATIVAN) TABLET PO PRN (17:47)
[2019-11-28] MEDS ORDERED: ACETAMINOPHEN 500 MG TAB (TYLENOL) PO PRN (19:00)
[2019-11-28] MEDS ORDERED: hydrOXYzine (VISTARIL/ATARAX) 25 MG capsule/tablet PO PRN (19:00)
[2019-11-28] MEDS ORDERED: LORazepam 0.5 MG (ATIVAN) TABLET PO PRN (19:00)
[2019-11-28] MEDS ORDERED: raNItidine (ZANTAC) 150 MG TAB NON-FORMULARY PO SCH (21:00)
[2019-11-28] MEDS ORDERED: NON-FORMULARY MEDICATION 1 EA EA (Hydralazine HCl 50 MG) PO SCH (21:00)
[2019-11-28] MEDS ORDERED: NON-FORMULARY MEDICATION 1 EA EA (Oxcarbazepine 600 MG) PO SCH (21:00)
[2019-11-28] MEDS ORDERED: LEVETIRACETAM 500 MG (KEPPRA) TAB PO SCH (21:00)
[2019-11-28] MEDS: PIPERACILLIN/TAZO 4.5 GM/NS 100 ML IV SCH ×2 (21:10)
[2019-11-28] MEDS: OXcarbazepine (TRILEPTAL) 300 MG TAB PO SCH (21:22)
[2019-11-28] MEDS: cloNIDine 0.2 MG (CATAPRES) TAB PO SCH (21:23)
[2019-11-28] MEDS: hydrALAZINE (APRESOLINE) 25 MG TAB PO SCH (21:23)
[2019-11-29] VITALS (8 sets, daily range): BP systolic 106–155; BP diastolic 54–97
[2019-11-29] MEDS: fentaNYL INJECTION 100 MCG/2 ML AMP IV PRN (02:50)
[2019-11-29] MEDS: NS IV 1000 ML 1,000 ML IV SCH ×2 (02:50→10:35)
[2019-11-29] MEDS: LORazepam 0.5 MG (ATIVAN) TABLET PO PRN (03:20)
[2019-11-29] MEDS: PIPERACILLIN/TAZO 4.5 GM/NS 100 ML IV SCH ×6 (05:24→20:03)
--- NOTE | 2019-11-29 06:13 | Pulmonary Consultation ---
History of Present Illness History of Present Illness Date Seen by Provider: Nov 29, 2019 Time Seen by Provider: 06:09 Date of Admission History of Present Illness 59yo with hx of multiple hospitalizations, and persistent methamphetamine use presented to ED secondary being found lethargic. Pt was found to be very lethargic while in the ED and was admitted to ICU for close monitoring. Pt started having an acute seizure this morning and was given Ativan 2mg IV. She is on PO Keppra and did get it yesterday. Currently pt is very lethargic from ativan and seizure. Allergies and Home Medications Allergies Coded Allergies: nitrous oxide (Verified Allergy, Unknown, 06/08/07) Home Medications Acetaminophen 500 Mg Tablet, 1,000 MG PO Q6H PRN for PAIN-MILD, (Reported) Amlodipine Besylate 10 Mg Tablet, 10 MG PO DAILY, (Reported) LAST FILLED #30 07-05-19 Aspirin 81 Mg Tab.chew, 81 MG PO DAILY, (Reported) Clonidine HCl 0.2 Mg Tablet, 0.4 MG PO BID, (Reported) TAKES 2 (0.2MG) TABLETS Cyclobenzaprine HCl 10 Mg Tablet, 10 MG PO TID PRN for MUSCLE SPASMS, (Reported) Hydralazine HCl 50 Mg Tablet, 50 MG PO TID, (Reported) Levetiracetam 500 Mg Tablet, 500 MG PO BID, (Reported) Loratadine 10 Mg Tablet, 10 MG PO DAILY, (Reported) Lorazepam 0.5 Mg Tablet, 0.5 MG PO TID PRN for ANXIETY, (Reported) Losartan Potassium 100 Mg Tablet, 100 MG PO DAILY, (Reported) Metoprolol Succinate 100 Mg Tab.er.24h, 100 MG PO DAILY, (Reported) Oxcarbazepine 600 Mg Tablet, 600 MG PO BID, (Reported) Prazosin HCl 1 Mg Capsule, 1 MG PO HS, (Reported) Ranitidine HCl 150 Mg Tablet, 150 MG PO HS, (Reported) LAST FILLED #30 08-03-19 Past Dsfmcvg-Pcjtvw-Vymfaw Hx Past Med/Social Hx: Reviewed Nursing Past Med/Soc Hx Patient Social History Alcohol Use: Denies Use Recreational Drug Use: Yes Drug of Choice: + IV METH USE, THC USE Smoking Status: Never a Smoker Type Used: Cigarettes 2nd Hand Smoke Exposure: Yes Recent Foreign Travel: No Contact w/Someone Who Travel: No Recent Infectious Disease Expo: No Recent Hopitalizations: No (10/09/19) Immunizations Up To Date Tetanus Booster (TDap): Less than 5yrs PED Vaccines UTD: No Date of Pneumonia Vaccine: Jul 13, 2012 Date of Influenza Vaccine: Jul 15, 2019 Seasonal Allergies Seasonal Allergies: No Past Medical History Surgeries: Yes Abdominal, Adenoidectomy, Cardiac, Section, Hysterectomy, Oophorectomy, Tonsillectomy Respiratory: Yes COPD Currently Using CPAP: No Currently Using BIPAP: No Cardiac: Yes Cardiomyopathy, Coronary Artery Disease, Endocarditis, Heart Attack, Hypertension, Peripheral Vascular, Valvular Heart Disease Neurological: Yes Concussion, Seizure Disorder, Stroke, Traumatic Brain Injury 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 Disorders: No 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, Menopausal Sexually Transmitted Disease: No HIV/AIDS: No Genitourinary: Yes Kidney Infection, Bladder Infection, Kidney Stones, Renal Failure, UTI-Chronic Gastrointestinal: Yes Abdominal Hernia, Gastroesophageal Reflux, Pancreatitis, Hepatitis Musculoskeletal: Yes (CHRONIC NECK AND BACK PAIN; POOR AMBULATION) Arthritis, Chronic Back Pain Endocrine: Yes (HGB AIC WAS 6.5 ON 12/23/18) Diabetes, Non-Insulin dep HEENT: Yes (POOR DENTITION) Loss of Vision: Denies Hearing Impairment: Denies Cancer: No Cervical Psychosocial: Yes (EXTENSIVE POLYSUBSTANCE ABUSE) Anxiety, Bipolar, Depression Integumentary: No Blood Disorders: Yes (ANEMIA OF CHRONIC DISEASE) Adverse Reaction/Blood Tranf: No Family Medical History Reviewed Nursing Family Hx Abdominal aortic aneurysm 03 FATHER Alcoholism 03 FATHER 03 MOTHER 09 SISTER 09 SISTER Cancer 03 FATHER Cataract 03 FATHER 03 MOTHER Chest pain 03 MOTHER Family history: Diabetes mellitus 03 MOTHER Family history: Hypertension 03 MOTHER Family history: Thyroid disorder 03 MOTHER Headache 09 SISTER Heart disease 03 MOTHER History of drug abuse 03 FATHER 09 SISTER Myocardial infarction 03 MOTHER No Family History of: Lunenburg's disease Aphasia Cancer of colon Congenital heart disease Congestive heart failure Cystic fibrosis Dementia Dysphagia Family history: Allergy Family history: Alzheimer's disease Family history: Arthritis Family history: Asthma Family history: Breast disease Family history: Cardiovascular disease Family history: Coronary thrombosis Family history: Gastrointestinal disease Family history: Glaucoma Family history: Osteoporosis Hearing loss Hereditary disease History of - anemia History of - disorder History of - respiratory disease Human immunodeficiency virus (HIV) seropositivity Hypercholesterolemia Infertile Kidney disease Malignant neoplasm of lung Parkinson's disease Prostate cancer Psychotic disorder Seizure disorder Stroke Tuberculosis Visual impairment AAA, Heart Disease, Diabetes Review of Systems Time Seen by Provider: 11:35 Sepsis Event Evaluation Height, Weight, BMI Height: 5'3.00" Weight: 155lbs. 8.0oz. 70.916918nf; 30.67 BMI Method:Stated Exam Exam Vital Signs Date Time Temp Pulse Resp B/P (MAP) Pulse Ox O2 Delivery O2 Flow Rate FiO2 11/29/19 04:00 Room Air 11/29/19 04:00 37.4 11/29/19 01:00 75 11/29/19 00:03 37.1 11/29/19 00:00 71 23 115/66 (82) 95 OxyMask 3.00 11/29/19 00:00 Room Air 11/28/19 21:22 96 OxyMask 2.00 11/28/19 21:00 Room Air 11/28/19 20:22 38.0 11/28/19 20:00 Room Air 11/28/19 20:00 80 22 118/60 (79) 98 OxyMask 3.00 11/28/19 19:00 82 11/28/19 18:30 81 21 93/49 (64) 92 OxyMask 3.00 11/28/19 18:00 81 20 98/57 (71) 96 OxyMask 3.00 11/28/19 17:30 77 24 108/57 (74) 90 OxyMask 3.00 11/28/19 17:00 77 24 99 OxyMask 3.00 11/28/19 16:30 72 18 96 OxyMask 3.00 11/28/19 16:00 71 20 101/50 (67) 98 OxyMask 3.00 11/28/19 16:00 Room Air 11/28/19 16:00 37.1 11/28/19 15:30 68 21 100/61 (74) 100 OxyMask 3.00 11/28/19 15:29 OxyMask 3.00 11/28/19 15:24 OxyMask 3.00 11/28/19 15:02 37.4 69 20 103/58 (73) 100 4.00 11/28/19 14:41 76 11/28/19 14:22 84 20 88/46 96 Nasal Cannula 2.00 11/28/19 10:28 39.3 84 22 134/119 (124) 96 Room Air I & O 2/17/20 07:00 Intake Total 3100 ml Output Total 500 ml Balance 2600 ml Height & Weight Height: 5'3.00" Weight: 155lbs. 8.0oz. 70.949628zi; 30.67 BMI Method:Stated General Appearance: WD/WN, Moderate Distress HEENT: PERRL/EOMI, Normal ENT Inspection, Other (Mucous membranes dry) Neck: Normal Inspection Respiratory: Lungs Clear, Normal Breath Sounds, No Accessory Muscle Use, No Respiratory Distress Cardiovascular: Regular Rate, Rhythm, No Edema, No Murmur, Normal Peripheral Pulses Capillary Refill: Less Than 3 Seconds Extremity: Normal Inspection, No Pedal Edema Neurologic/Psychiatric: Alert, Depressed Affect, Disoriented, Other (Seems disoriented. Speech is difficult to understand but she does answer some questions appropriately. There are no focal motor deficits observed) Skin: Normal Color, Warm/Dry Results Lab Laboratory Tests 11/28/19 10:37 Assessment/Plan Assessment/Plan Acute Seizure -Given 2mg of Ativan this AM -Monitor -Change PO keppra to IV. -Monitor close -Keep in step down secondary to acute seizure this morning. -Pt is a DNR/ DNI UTI -Continue Zosyn Bacteremia from [employer]ip[employer] -Repeat Blood cultures x 3 r/o contamination -Check echo to r/o endocarditis - pt has chronic drug use Multiple hospitalizations Acute on chronic renal failure Polysubstance abuse -Education Dehydration -IVF Coronary artery disease History of traumatic brain injury Anemia of uncertain etiology Hyperglycemia RICARDA COVINGTON DO Nov 29, 2019 06:13
[2019-11-29] MEDS ORDERED: LORazepam INJ 2 MG/ML (ATIVAN) VIAL ONE (07:14)
--- NOTE | 2019-11-29 07:15 | NUR ---
PCT called nurses and physician into room as patient appears to be having a seizure. Patient is noted to be shaking, mumbling and unable to answer questions appropriately. Patient does state "thirsty". VSS, temperature is elevated at [address] Balderrama present and orders received. Will continue to monitor.
[2019-11-29] MEDS: LORazepam INJ 2 MG/ML (ATIVAN) VIAL IVP PRN ×2 (07:16→22:55)
[2019-11-29] MEDS ORDERED: morphine INJ 4 MG/ML 1 ML (VIAL/SYRINGE) IVP PRN (07:30)
[2019-11-29] MEDS ORDERED: meTOprolol SUCCINATE 100 MG (TOPROL XL) TAB PO SCH (09:00)
[2019-11-29] MEDS ORDERED: LOSARTAN 100 MG (COZAAR) TABLET PO SCH (09:00)
[2019-11-29] MEDS: PHENobarbital 97.2 MG (1-1/2 GRAIN) TABLET PO SCH (10:23)
[2019-11-29] MEDS: hydrALAZINE (APRESOLINE) 25 MG TAB PO SCH ×3 (10:36→20:04)
[2019-11-29] MEDS: amLODIPine 10 MG (NORVASC) TAB PO SCH (10:36)
[2019-11-29] MEDS: ASPIRIN 81 MG CHEW (CHILDREN'S ASA) PO SCH (10:36)
[2019-11-29] MEDS: LEVETIRACETAM INJECTION 1,000 MG in NS (IVPB) 100 ML IV SCH ×2 (10:36→20:03)
[2019-11-29] MEDS: OXcarbazepine (TRILEPTAL) 300 MG TAB PO SCH ×2 (10:37→20:03)
[2019-11-29] MEDS: cloNIDine 0.2 MG (CATAPRES) TAB PO SCH ×2 (10:37→20:03)
[2019-11-29] MEDS: LACTATED RINGERS 1,000 ML IV SCH ×2 (12:02→14:56)
[2019-11-29 12:13] LABS: BASOPHILS % (AUTO) 0 % (0-10); EOSINOPHILS # (AUTO) 0.1 10^3/uL (0.0-0.3); EOSINOPHILS % (AUTO) 2 % (0-10); HEMATOCRIT 26 % (35-52); LYMPHOCYTES # (AUTO) 0.9 X 10^3 (1.0-4.0); LYMPHOCYTES % (AUTO) 19 % (12-44); MEAN CORPUSCULAR HEMOGLOBIN 28 PG (25-34); MEAN CORPUSCULAR HGB CONC 31 G/DL (32-36); MEAN CORPUSCULAR VOLUME 89 FL (80-99); MONOCYTES # (AUTO) 0.5 X 10^3 (0.0-1.0); MONOCYTES % (AUTO) 10 % (0-12); NEUTROPHILS % (AUTO) 68 % (42-75); PLATELET COUNT 188 10^3/uL (130-400); RED CELL DISTRIBUTION WIDTH 14.7 % (10.0-14.5); WHITE BLOOD COUNT 4.4 10^3/uL (4.3-11.0)
[2019-11-29 12:36] LABS: BILIRUBIN,TOTAL 0.2 MG/DL (0.1-1.0); CALCIUM 7.8 MG/DL (8.5-10.1); CREATININE SERUM 1.7 MG/DL (0.60-1.30); PHOSPHORUS 3.7 MG/DL (2.3-4.7); POTASSIUM 4.6 MMOL/L (3.6-5.0); TOTAL PROTEIN 5.8 GM/DL (6.4-8.2)
[2019-11-29] MEDS ORDERED: HYDR100T27 PO (14:41)
[2019-11-29] MEDS ORDERED: PHEN64.8 PO (14:41)
[2019-11-29] MEDS ORDERED: QUET25TA73 PO (14:43)
[2019-11-29] MEDS ORDERED: CRV25T PO (14:43)
[2019-11-29] MEDS ORDERED: FAMO20TA3 PO (14:44)
[2019-11-29] MEDS ORDERED: LEVE10006 PO (15:31)
--- NOTE | 2019-11-29 15:32 | NUR ---
UNABLE TO SPEAK WITH THE PT- HOWEVER THERE WAS A MED LIST (IT LOOKS LIKE IT WAS FROM HER PCP ATTACHED TO HER FILE- BUT THIS LOOKS OUT OF DATE) WELL GETTING A MED LIST FROM [facility] TO COMPLETE THE MED REC. KEPPRA: ON THE MED LIST FAXED FROM [facility] IT HAS 2 STRENGTHS LISTED FROM 2 DIFFERENT DOCTORS AND THEY ARE SOLD 2 DAYS APART. KEPPRA 1000MG: TAKE [address] MELISSA FROM [place] 11-02-2019 KEPPRA 500MG: TAKE 2 TABS BID FROM [facility] 11-04-2019 BOTH WERE 30 DAY SUPPLIES AND WHEN I QUESTIONED [facility]'S NURSE ABOUT IF IT SHOWS IN HER CHART ABOUT TAKING BOTH- SHE RESPONDED THAT IT DID NOT. SHE SEES WERE THE PT WAS AT [facility] BUT THEY WERE NOT AWARE THAT SHE WAS GIVEN KEPPRA. I PUT THE 1,000 MG BID ON THE MED REC AT THIS TIME THE FOLLOWING ARE FILL DATES FROM [facility]: 10-26-2019 CLONIDINE 0.2MG #60/30DS 10-26-2019 LORATADINE 10MG #30/30DS 10-26-2019 LOSARTAN 100MG #30/30DS 10-26-2019 OXCARBAZEPINE 600MG #60/30DS 10-29-2019 FAMOTIDINE #60/30DS 11-02-2019 KEPPRA 1000MG #60/30DS 11-04-2019 KEPPRA 500MG #120/30DS 11-04-2019 PHENOBARBITAL 64.8MG #120/30DS 11-04-2019 AMLODIPINE 10MG #30/30DS 11-16-2019 PRAZOSIN 1MG #30/30DS 11-16-2019 HYDRALAZINE 100MG #60/30DS 11-22-2019 COREG 25MG #60/30DS 11-22-2019 SEROQUEL 25MG #30/30DS
--- NOTE | 2019-11-29 19:10 | Progress Note ---
Subjective Subjective/Events-last exam Patient awake this AM and answering questions appropriately. States that she used meth yesterday. Review of Systems Pulmonary: Dyspnea Cardiovascular: No: Chest Pain, Palpitations Gastrointestinal: No: Nausea, Vomiting, Diarrhea, Constipation Neurological: Confusion Focused Exam Lactate Level 11/28/19 10:37: Lactic Acid Level 0.69 11/29/19 11:57: Lactic Acid Level 0.48L Objective Exam Last Set of Vital Signs Vital Signs Date Time Temp Pulse Resp B/P (MAP) Pulse Ox O2 Delivery O2 Flow Rate FiO2 11/29/19 16:00 Room Air 11/29/19 15:27 36.4 78 24 125/65 (85) 92 11/29/19 12:00 3.00 11/29/19 09:00 94 Capillary Refill : Less Than 3 Seconds I&O Intake and Output 11/29/19 00:00 Intake Total 3100 ml Output Total 500 ml Balance 2600 ml Intake Oral 0 ml IV Total 3100 ml Output Urine Total 500 ml Daily Weight Change No No General: Alert, No Acute Distress Lungs: Clear to Auscultation, Normal Air Movement Heart: Regular Rate, No Murmurs Abdomen: Normal Bowel Sounds, Soft, No Tenderness, No Masses Extremities: No Edema, No Tenderness/Swelling Neuro: Sensation Intact, Cranial Nerves 3-12 NL Results/Procedures Lab Laboratory Tests 11/29/19 11:57: Lactic Acid Level 0.48L 11/29/19 11:58: White Blood Count 4.4, Red Blood Count 2.89L, Hemoglobin 8.0L, Hematocrit 26L, Mean Corpuscular Volume 89, Mean Corpuscular Hemoglobin 28, Mean Corpuscular Hemoglobin Concent 31L, Red Cell Distribution Width 14.7H, Platelet Count 188, Mean Platelet Volume 10.0, Neutrophils (%) (Auto) 68, Lymphocytes (%) (Auto) 19, Monocytes (%) (Auto) 10, Eosinophils (%) (Auto) 2, Basophils (%) (Auto) 0, Neutrophils # (Auto) 3.0, Lymphocytes # (Auto) 0.9L, Monocytes # (Auto) 0.5, Eosinophils # (Auto) 0.1, Basophils # (Auto) 0.0, Sodium Level 136, Potassium Level 4.6, Chloride Level 111H, Carbon Dioxide Level 17L, Anion Gap 8, Blood Urea Nitrogen 34H, Creatinine 1.70H, Estimat Glomerular Filtration Rate 31, BUN/Creatinine Ratio 20, Glucose Level 79, Calcium Level 7.8L, Corrected Calcium 8.6, Phosphorus Level 3.7, Magnesium Level 2.0, Total Bilirubin 0.2, Aspartate Amino Transf (AST/SGOT) 17, Alanine Aminotransferase (ALT/SGPT) 16, Alkaline Phosphatase 61, B-Type Natriuretic Peptide 367.9H, Total Protein 5.8L, Albumin 3.0L Microbiology 11/28/19 Urine Culture - Preliminary, Resulted Escherichia coli 11/28/19 Influenza Types A,B Antigen (JOHANA) - Final, Complete 11/28/19 Blood Culture - Preliminary, Resulted Gram Positive Cocci In Chains Assessment/Plan Assessment/Plan (1) Altered mental status Status: Acute Assessment & Plan: - Drug abuse vs infection vs ativan use, Will continue to monitor Qualifiers: Qualified Codes: R41.82 - Altered mental status, unspecified (2) Urinary tract infection Status: Acute Assessment & Plan: - Continue IV antibiotics Qualifiers: Qualified Codes: N39.0 - Urinary tract infection, site not specified (3) Acute renal failure Status: Acute Assessment & Plan: - hydration, repeat BMP in AM Qualifiers: Qualified Codes: N17.9 - Acute kidney failure, unspecified (4) Polysubstance abuse Status: Chronic (5) Seizure disorder Status: Chronic (6) Anemia Status: Chronic Assessment & Plan: - Chronic Dz, no signs of acute bleeding Qualifiers: Qualified Codes: D64.9 - Anemia, unspecified Clinical Quality Measures DVT/VTE Risk/Contraindication: Risk Factor Score Per Nursin RFS Level Per Nursing on Admit: 2=Moderate KWAKU GAONA MD Nov 29, 2019 19:10
[2019-11-29] MEDS: FAMOTIDINE 20 MG (PEPCID) TABLET PO SCH (20:03)
[2019-11-30] VITALS (23 sets, daily range): BP systolic 119–170; BP diastolic 56–92
--- NOTE | 2019-11-30 01:19 | NUR ---
PT WITH A TEMPORAL TEMP OF 38.9. RECTAL THERMOMETER PLACED AND SHOWED AN INITIAL TEMP OF 40.1. THIS RN NOTIFIED DR. GAONA AT 0048 AND OBTAINED PHONE ORDERS TO MOVE PT TO ICU STATUS DUE TO HIGH TEMP AND RESP. DISTRESS - O2 IN THE 80'S WITH OXYMASK. JIMENEZ GAVE ORDERS FOR VAPOTHERM WHICH WAS INITIATED BY RT. PT NOW SATING AT 92% ON VAPOTHERM AND HAS A RECTAL TEMP OF 39.7. E-ICU NOTIFIED AT 0014 OF CHANGE TO ICU STATUS. WILL CONTINUE TO MONITOR.
--- NOTE | 2019-11-30 02:00 | NUR ---
DR DARLING WITH E-ICU CAMERA'D INTO ROOM AT APPROX 0130. NEW ORDERS GIVEN AT THIS TIME
--- NOTE | 2019-11-30 02:19 | NUR ---
PT ON VAPOTHERM AT 40 LITERS AND 50% PER DR'S ORDER. PRECEDEX STARTED AT 0.2. PT IS RESTING PEACEFULLY IN BED AT THIS TIME. RECTAL THERMOMETER CURRENTLY READS 38.5.
[2019-11-30 03:34] LABS: BASOPHILS % (AUTO) 0 % (0-10); EOSINOPHILS # (AUTO) 0.1 10^3/uL (0.0-0.3); EOSINOPHILS % (AUTO) 1 % (0-10); HEMATOCRIT 26 % (35-52); HEMOGLOBIN 8.3 G/DL (11.5-16.0); LYMPHOCYTES # (AUTO) 0.8 X 10^3 (1.0-4.0); LYMPHOCYTES % (AUTO) 13 % (12-44); MEAN CORPUSCULAR HEMOGLOBIN 28 PG (25-34); MEAN CORPUSCULAR HGB CONC 32 G/DL (32-36); MEAN CORPUSCULAR VOLUME 87 FL (80-99); MEAN PLATELET VOLUME 9.9 FL (7.4-10.4); MONOCYTES # (AUTO) 0.6 X 10^3 (0.0-1.0); MONOCYTES % (AUTO) 9 % (0-12); NEUTROPHILS # (AUTO) 4.5 X 10^3 (1.8-7.8); NEUTROPHILS % (AUTO) 76 % (42-75); PLATELET COUNT 220 10^3/uL (130-400); RED CELL DISTRIBUTION WIDTH 14.8 % (10.0-14.5); WHITE BLOOD COUNT 5.9 10^3/uL (4.3-11.0)
[2019-11-30] MEDS: LORazepam INJ 2 MG/ML (ATIVAN) VIAL IVP PRN ×3 (03:46→14:22)
[2019-11-30] MEDS: DexMEDEtomidine 250 ML DRIP 250 ML IV SCH ×3 (03:48→22:09)
[2019-11-30 03:55] LABS: CALCIUM 8.2 MG/DL (8.5-10.1); CREATININE SERUM 1.5 MG/DL (0.60-1.30); MAGNESIUM 1.8 MG/DL (1.6-2.4); PHOSPHORUS 2.6 MG/DL (2.3-4.7); POTASSIUM 4.7 MMOL/L (3.6-5.0)
[2019-11-30] MEDS: PIPERACILLIN/TAZO 4.5 GM/NS 100 ML IV SCH ×2 (04:02)
[2019-11-30] MEDS: POTASSIUM CL 10MEQ/50ML IVPB 50 ML IV SCH (04:30)
[2019-11-30] MEDS: MAGNESIUM 1 GM/100 ML IVPB 100 ML IV SCH (04:30)
[2019-11-30] MEDS: inSUlin ASPART (NovoLOG) 1 UNIT/0.01 ML (CHARGE PER UNIT) SC SCH ×3 (04:31→19:15)
[2019-11-30] MEDS: KCL 20 MEQ TAB (K-DUR) PO SCH (04:31)
[2019-11-30 04:43] LABS: ABG BASE EXCESS -6.8 MMOL/L (-2.5-2.5); ABG OXYGEN SATURATION 99 % (94-100); ABG PCO2 41 MMHG (35-45); ABG PO2 111 MMHG (79-93); ABG TCO2 19.9 MMOL/L (21.0-31.0); ALLENS TEST POSITIVE; INSPIRED O2 50%; PATIENT TEMP 37.2; VENTILATOR NO
[2019-11-30 04:45] LABS: ABG PH 7.28 (7.37-7.43)
[2019-11-30] MEDS ORDERED: FUROSEMIDE 40 MG/4 ML INJ (LASIX) IVP ONE (05:30)
--- NOTE | 2019-11-30 05:41 | Pulmonary Progress Note ---
Subjective Time Seen by a Provider: 05:35 Subjective/Events-last exam EICU ordered precedex last night secondary to agitation. Sepsis Event Evaluation Height, Weight, BMI Height: 5'3.00" Weight: 155lbs. 8.0oz. 70.481386hn; 30.67 BMI Method:Stated Focused Exam Lactate Level 11/28/19 10:37: Lactic Acid Level 0.69 11/29/19 11:57: Lactic Acid Level 0.48L Exam Exam Vital Signs Date Time Temp Pulse Resp B/P (MAP) Pulse Ox O2 Delivery O2 Flow Rate FiO2 11/30/19 04:00 37.3 75 30 145/74 (97) 100 Vapotherm 40.00 50.00 11/30/19 04:00 Vapotherm 40.00 50 11/30/19 04:00 97 Vapotherm 40.00 50 11/30/19 03:18 92 Vapotherm 40.00 50 11/30/19 03:00 37.7 70 32 122/67 (85) 96 Vapotherm 40.00 50.00 11/30/19 02:20 38.5 11/30/19 02:00 38.9 81 27 122/60 (80) 95 Vapotherm 40.00 50.00 11/30/19 01:47 97 Vapotherm 40.00 50 11/30/19 01:41 Vapotherm 40.00 50.00 11/30/19 01:04 39.9 11/30/19 01:00 40.1 11/30/19 01:00 40.1 101 31 139/78 (98) 82 OxyMask 3.00 11/30/19 00:50 93 Vapotherm 15.00 50 11/30/19 00:43 113 11/30/19 00:34 39.8 11/30/19 00:00 OxyMask 2.00 11/30/19 00:00 OxyMask 2.00 11/29/19 23:30 88 22 155/97 (116) 85 OxyMask 3.00 11/29/19 21:00 OxyMask 2.00 94 11/29/19 20:00 OxyMask 2.00 11/29/19 20:00 37.2 85 18 132/73 (92) 91 OxyMask 3.00 11/29/19 18:41 82 11/29/19 16:00 Room Air 11/29/19 15:27 36.4 78 24 125/65 (85) 92 11/29/19 12:24 76 11/29/19 12:00 75 24 112/63 (79) OxyMask 3.00 11/29/19 12:00 Room Air 11/29/19 11:11 37.3 11/29/19 09:00 Room Air 94 11/29/19 08:00 89 25 106/54 (71) 92 OxyMask 3.00 11/29/19 08:00 Room Air 11/29/19 07:14 39.0 92 22 137/92 (107) 96 11/29/19 07:00 91 I & O 11/30/19 07:00 Intake Total 2780 ml Output Total 450 ml Balance 2330 ml Height & Weight Height: 5'3.00" Weight: 155lbs. 8.0oz. 70.702253lh; 30.67 BMI Method:Stated General Appearance: Chronically ill HEENT: Other (Poor dentition) Neck: Limited Range of Motion Respiratory: Lungs Clear, Normal Breath Sounds, No Accessory Muscle Use, No Respiratory Distress Cardiovascular: Regular Rate, Rhythm, No Gallop, Systolic Murmur Capillary Refill: Less Than 3 Seconds Extremity: No Pedal Edema Neurologic/Psychiatric: Other (Unable to follow direction but moving all extremities) Skin: Normal Color, Warm/Dry Results Lab Laboratory Tests 11/28/19 10:37 11/29/19 11:58 11/30/19 03:23 Assessment/Plan Assessment/Plan Acute Seizure -Monitor - keppra to IV. -Monitor close -Keep in step down secondary to acute seizure this morning. -Pt is a DNR/ DNI Agitation -Currently on Precedex per EICU last night - UTI -Continue Zosyn Bacteremia from [employer] Tm 40.1 -Change Abx to Vanco and Merrem -Repeat cultures were done yesterday with Blood cultures x [facility] -Echo was ordered yesterday to screen for endocarditis. Results pending. Pt may need SURY. -If repeat BC are still positive consult cardiology for SURY -RN states pt aspirated on sprite yesterday. She is currently NPO -Repeat Blood cultures x 3 r/o contamination-- were ordered 11/29 -Check echo to r/o endocarditis - pt has chronic drug use Multiple hospitalizations Acute on chronic renal failure Polysubstance abuse -Education Dehydration -IVF Coronary artery disease History of traumatic brain injury Anemia of uncertain etiology Hyperglycemia RICARDA COVINGTON DO Nov 30, 2019 05:40
[2019-11-30] MEDS ORDERED: VANCOMYCIN INJECTION 1,000 MG in NS (IVPB) 250 ML IV SCH (05:45)
[2019-11-30] MEDS ORDERED: PHARMACY TO DOSE IV SCH (05:45)
[2019-11-30] MEDS ORDERED: VANCOMYCIN 1500 MG/NS 500 ML IVPB IV ONE ×2 (06:15)
[2019-11-30] MEDS: MEROPENEM 500 MG in WATER (STERILE) FOR INJECTION 10 ML IV SCH ×4 (06:38→22:51)
[2019-11-30] MEDS: LACTATED RINGERS 1,000 ML IV SCH (06:53)
[2019-11-30] MEDS: RT-ALBUTEROL/IPRATROPIUM 3 ML (DUONEB) VIAL INH SCH ×5 (06:55→21:23)
--- NOTE | 2019-11-30 06:57 | NUR ---
VANCOMYCIN DOSING SCR 1.5; ADJ BW 65 KG; CRCL ~ 41; BOLUS VANC 20 MG/KG X 81 KG ~ 1750 MG THEN VANC 15 MG/KG ~ 1250 MG Q24H CHECK TROUGH LEVEL 12/02 0600 HOLD DOSE AND CONTACT PHARMACY IF LEVEL IS GREATER THAN 20
[2019-11-30] MEDS ORDERED: VANCOMYCIN 1,750 MG/NS 500 ML IVPB IV NR ×2 (07:00)
[2019-11-30] MEDS: LEVETIRACETAM INJECTION 1,000 MG in NS (IVPB) 100 ML IV SCH ×2 (08:44→20:33)
--- NOTE | 2019-11-30 08:56 | Diagnostic Imaging Report ---
Clinical indication: ICU care management. Patient with urinary tract infection, altered mental status. Exam: Portable chest x-ray upright view. Comparisons: Chest x-ray dated 11/28/2019. Findings: There is slight increased bibasilar atelectasis or infiltrate. There is blunting left costophrenic angle and a small left pleural effusion may be considered. Pulmonary vasculature is mildly congested. Cardiac silhouette is mildly prominent. Central line seen again overlying the left chest which is in stable position. There is no pneumothorax. The remainder of this exam shows no significant interval change compared to the prior study of comparison. IMPRESSION: 1. There is progression of bibasilar atelectasis versus infiltrates. There is development of a small left pleural effusion. 2: The remainder of this exam shows no significant interval change compared to the prior study of comparison. Dictated by: Dictated on workstation # [id number]
[2019-11-30] MEDS ORDERED: hydrALAZINE (APRESOLINE) 25 MG TAB PO SCH (09:00)
[2019-11-30] MEDS ORDERED: cloNIDine 0.2 MG (CATAPRES) TAB PO SCH (09:00)
[2019-11-30] MEDS ORDERED: WATER (STERILE) FOR INJECTION 10 ML ONE (09:11)
[2019-11-30] MEDS: ZIPRASIDONE 20 MG INJ (GEODON) VIAL IM PRN (09:24)
[2019-11-30] MEDS: amLODIPine 10 MG (NORVASC) TAB PO SCH (09:43)
[2019-11-30] MEDS: OXcarbazepine (TRILEPTAL) 300 MG TAB PO SCH ×2 (09:43→20:33)
[2019-11-30] MEDS: ASPIRIN 81 MG CHEW (CHILDREN'S ASA) PO SCH (09:43)
[2019-11-30] MEDS: PHENobarbital 97.2 MG (1-1/2 GRAIN) TABLET PO SCH (09:43)
[2019-11-30] MEDS: risperiDONE 1 MG (RisperDAL) TAB PO SCH ×2 (09:43→20:33)
[2019-11-30] MEDS ORDERED: ACETAMINOPHEN 650 MG SUPP (TYLENOL) PR PRN (10:30)
--- NOTE | 2019-11-30 19:43 | Progress Note ---
Subjective Subjective/Events-last exam Patient not responding to questions this AM. On Vapotherm and protecting airway. Continues to have fevers this AM. NPO Review of Systems Unable to answer due to clinical condition Focused Exam Lactate Level 11/28/19 10:37: Lactic Acid Level 0.69 11/29/19 11:57: Lactic Acid Level 0.48L Objective Exam Last Set of Vital Signs Vital Signs Date Time Temp Pulse Resp B/P (MAP) Pulse Ox O2 Delivery O2 Flow Rate FiO2 11/30/19 18:01 96 Vapotherm 30.00 40 11/30/19 18:00 38.2 79 27 126/69 (88) Capillary Refill : Less Than 3 Seconds I&O Intake and Output 11/30/19 00:00 Intake Total 2800 ml Output Total 900 ml Balance 1900 ml Intake Oral 860 ml IV Total 1940 ml Output Urine Total 900 ml # Voids 5 General: Other (Not answering questions, on vapotherm) Lungs: Other (diffuse wheezing and basilar crackles, mild increase in work of breathing.) Heart: Regular Rate, Other (systolic murmur, 4/6) Abdomen: No Tenderness, No Masses Extremities: Other (trace swelling bilaterally) Skin: Other (scabs present all over body) Results/Procedures Lab Laboratory Tests 11/30/19 03:23: White Blood Count 5.9, Red Blood Count 3.00L, Hemoglobin 8.3L, Hematocrit 26L, Mean Corpuscular Volume 87, Mean Corpuscular Hemoglobin 28, Mean Corpuscular Hemoglobin Concent 32, Red Cell Distribution Width 14.8H, Platelet Count 220, Mean Platelet Volume 9.9, Neutrophils (%) (Auto) 76H, Lymphocytes (%) (Auto) 13, Monocytes (%) (Auto) 9, Eosinophils (%) (Auto) 1, Basophils (%) (Auto) 0, Neutrophils # (Auto) 4.5, Lymphocytes # (Auto) 0.8L, Monocytes # (Auto) 0.6, Eosinophils # (Auto) 0.1, Basophils # (Auto) 0.0, Sodium Level 137, Potassium Level 4.7, Chloride Level 110H, Carbon Dioxide Level 18L, Anion Gap 9, Blood Urea Nitrogen 26H, Creatinine 1.50H, Estimat Glomerular Filtration Rate 36, BUN/Creatinine Ratio 17, Glucose Level 124H, Calcium Level 8.2L, Phosphorus Level 2.6, Magnesium Level 1.8 11/30/19 04:37: Blood Gas Puncture Site RIGHT RADIAL, Blood Gas Patient Temperature 37.2, Arterial Blood pH 7.28*L, Arterial Blood Partial Pressure CO2 41, Arterial Blood Partial Pressure O2 111H, Arterial Blood HCO3 19L, Arterial Blood Total CO2 19.9L, Arterial Blood Oxygen Saturation 99, Arterial Blood Base Excess -6.8L, Dominguez Test POSITIVE, Blood Gas Ventilator Setting NO, Blood Gas Inspired Oxygen 50% 11/30/19 11:29: Glucometer 114H 11/30/19 18:27: Glucometer 116H Microbiology 11/29/19 Blood Culture - Preliminary, Resulted No growth 11/28/19 Urine Culture - Final, Complete Escherichia coli 11/28/19 Influenza Types A,B Antigen (JOHANA) - Final, Complete Assessment/Plan Assessment/Plan (1) Sepsis Status: Acute Assessment & Plan: 11/30: Continue to have fever, Blood Culture + for Strep, Urine growing Ecoli, Continue IVFs and IV antibiotics, Repeat blood cultures today Qualifiers: Qualified Codes: A40.8 - Other streptococcal sepsis; R65.20 - Severe sepsis without septic shock; N17.9 - Acute kidney failure, unspecified (2) Bacteremia Status: Acute Assessment & Plan: - Strep, repeat blood cultures, Gen surgery consulted for possible port removal when patient stable, Echo shows valvular dz w/o vegetations (3) Altered mental status Status: Acute Assessment & Plan: - Drug abuse vs infection vs ativan use, Will continue to monitor 11/30: Patient not responding this AM, transferred to ICU status last night Qualifiers: Qualified Codes: R41.82 - Altered mental status, unspecified (4) Urinary tract infection Status: Acute Assessment & Plan: - Continue IV antibiotics 11/30: Ecoli growing, continue IV antibiotics, sensitive to Rocephin Qualifiers: Qualified Codes: N39.0 - Urinary tract infection, site not specified (5) Acute renal failure Status: Acute Assessment & Plan: - hydration, repeat BMP in AM 11/30: Mild improvement, continue IVFs Qualifiers: Qualified Codes: N17.9 - Acute kidney failure, unspecified (6) Polysubstance abuse Status: Chronic (7) Seizure disorder Status: Chronic (8) Anemia Status: Chronic Assessment & Plan: - Chronic Dz, no signs of acute bleeding 11/30: iron studies in AM, Fe def in 2012 and patient has not had studies since then Qualifiers: Qualified Codes: D64.9 - Anemia, unspecified Clinical Quality Measures DVT/VTE Risk/Contraindication: Risk Factor Score Per Nursin RFS Level Per Nursing on Admit: 2=Moderate KWAKU GAONA MD Nov 30, 2019 19:43
[2019-11-30] MEDS: FAMOTIDINE 20 MG (PEPCID) TABLET PO SCH (20:33)
[2019-12-01] VITALS (18 sets, daily range): BP systolic 142–207; BP diastolic 75–122
[2019-12-01] MEDS: RT-ALBUTEROL/IPRATROPIUM 3 ML (DUONEB) VIAL INH SCH ×6 (02:01→21:21)
[2019-12-01] MEDS ORDERED: WATER (STERILE) FOR INJECTION 10 ML ONE (02:50)
[2019-12-01] MEDS: ZIPRASIDONE 20 MG INJ (GEODON) VIAL IM PRN ×2 (03:02→16:34)
[2019-12-01 03:30] LABS: BASOPHILS % (AUTO) 0 % (0-10); EOSINOPHILS # (AUTO) 0.1 10^3/uL (0.0-0.3); EOSINOPHILS % (AUTO) 2 % (0-10); HEMATOCRIT 27 % (35-52); HEMOGLOBIN 8.6 G/DL (11.5-16.0); LYMPHOCYTES # (AUTO) 1.3 X 10^3 (1.0-4.0); LYMPHOCYTES % (AUTO) 22 % (12-44); MEAN CORPUSCULAR HEMOGLOBIN 28 PG (25-34); MEAN CORPUSCULAR HGB CONC 32 G/DL (32-36); MEAN CORPUSCULAR VOLUME 86 FL (80-99); MEAN PLATELET VOLUME 9.8 FL (7.4-10.4); MONOCYTES # (AUTO) 0.4 X 10^3 (0.0-1.0); MONOCYTES % (AUTO) 7 % (0-12); NEUTROPHILS # (AUTO) 4.2 X 10^3 (1.8-7.8); NEUTROPHILS % (AUTO) 70 % (42-75); PLATELET COUNT 243 10^3/uL (130-400); RED CELL DISTRIBUTION WIDTH 14.5 % (10.0-14.5)
[2019-12-01 03:52] LABS: CALCIUM 8.5 MG/DL (8.5-10.1); CREATININE SERUM 1.22 MG/DL (0.60-1.30); MAGNESIUM 1.6 MG/DL (1.6-2.4); PHOSPHORUS 3.5 MG/DL (2.3-4.7); POTASSIUM 3.9 MMOL/L (3.6-5.0)
[2019-12-01] MEDS: inSUlin ASPART (NovoLOG) 1 UNIT/0.01 ML (CHARGE PER UNIT) SC SCH ×4 (04:42→18:06)
--- NOTE | 2019-12-01 05:21 | Pulmonary Progress Note ---
Subjective Time Seen by a Provider: 05:16 Subjective/Events-last exam Currently unresponsive secondary to over sedation Sepsis Event Evaluation Height, Weight, BMI Height: 5'3.00" Weight: 155lbs. 8.0oz. 70.087320xz; 30.67 BMI Method:Stated Focused Exam Lactate Level 11/28/19 10:37: Lactic Acid Level 0.69 11/29/19 11:57: Lactic Acid Level 0.48L 11/30/19 21:50: Lactic Acid Level 0.88 Exam Exam Vital Signs Date Time Temp Pulse Resp B/P (MAP) Pulse Ox O2 Delivery O2 Flow Rate FiO2 12/01/19 04:00 Vapotherm 30.00 40 12/01/19 04:00 Vapotherm 30.00 40 12/01/19 04:00 37.1 87 21 148/75 (99) 97 Vapotherm 30.00 40.00 12/01/19 03:00 37.2 92 15 172/97 (122) 92 Vapotherm 30.00 40.00 12/01/19 02:01 98 Vapotherm 30.00 40 12/01/19 02:00 37.1 75 27 168/87 (114) 97 Vapotherm 30.00 40.00 12/01/19 01:00 74 12/01/19 01:00 37.2 74 22 158/84 (108) 96 Vapotherm 30.00 40.00 12/01/19 00:00 Vapotherm 30.00 40 12/01/19 00:00 37.4 75 22 163/83 (109) 99 Vapotherm 30.00 40.00 12/01/19 00:00 Vapotherm 30.00 40 11/30/19 23:00 37.2 79 28 170/85 (113) 100 Vapotherm 30.00 40.00 11/30/19 22:39 37.1 87 149/70 (96) Vapotherm 30.00 40.00 11/30/19 22:00 36.8 81 26 100 Vapotherm 30.00 40.00 11/30/19 21:23 96 Vapotherm 30.00 40 11/30/19 21:00 36.1 75 157/86 (109) 99 Vapotherm 30.00 40.00 11/30/19 20:00 36.7 71 25 140/76 (97) 95 Vapotherm 30.00 40.00 11/30/19 20:00 99 Vapotherm 30.00 40 11/30/19 20:00 Vapotherm 30.00 40 11/30/19 19:00 75 11/30/19 19:00 37.4 75 27 135/74 (94) 94 Vapotherm 30.00 40.00 11/30/19 18:01 96 Vapotherm 30.00 40 11/30/19 18:00 38.2 79 27 126/69 (88) 97 Vapotherm 40.00 40.00 11/30/19 17:00 39.0 92 28 146/60 (88) 92 Vapotherm 40.00 40.00 11/30/19 16:00 97 Vapotherm 30.00 40 11/30/19 16:00 Vapotherm 30.00 40 11/30/19 16:00 38.9 92 21 144/85 (104) 96 Vapotherm 40.00 40.00 11/30/19 15:00 39.5 91 35 167/92 (117) 98 Vapotherm 40.00 40.00 11/30/19 14:54 96 Vapotherm 30.00 40 11/30/19 14:00 38.5 85 35 164/91 (115) 99 Vapotherm 40.00 40.00 11/30/19 13:00 38.5 77 24 124/56 (78) 94 Vapotherm 40.00 40.00 11/30/19 12:46 79 11/30/19 12:00 Vapotherm 30.00 40 11/30/19 12:00 97 Vapotherm 30.00 40 11/30/19 12:00 39.2 87 28 121/61 (81) 96 Vapotherm 40.00 40.00 11/30/19 11:05 37.7 11/30/19 11:00 39.6 85 34 157/78 (104) 98 Vapotherm 40.00 40.00 11/30/19 10:48 97 Vapotherm 30.00 40 11/30/19 10:35 39.3 11/30/19 10:00 39.5 94 31 161/90 (113) 100 Vapotherm 40.00 40.00 11/30/19 09:00 38.2 85 17 152/85 (107) Vapotherm 40.00 40.00 11/30/19 08:00 97 Vapotherm 30.00 40 11/30/19 08:00 Vapotherm 30.00 40 11/30/19 08:00 37.8 67 33 138/75 (96) 100 Vapotherm 40.00 40.00 11/30/19 07:00 37.3 81 38 148/76 (100) 100 Vapotherm 40.00 50.00 11/30/19 07:00 69 11/30/19 06:55 100 Vapotherm 30.00 50 11/30/19 06:00 37.0 65 26 140/74 (96) 100 Vapotherm 40.00 50.00 I & O 12/01/19 07:00 Intake Total 897.5 ml Output Total 3800 ml Balance -2902.5 ml Height & Weight Height: 5'3.00" Weight: 155lbs. 8.0oz. 70.652477if; 30.67 BMI Method:Stated General Appearance: Chronically ill, Other (sedated) HEENT: Other (Poor dentition) Neck: Limited Range of Motion Respiratory: Lungs Clear, Normal Breath Sounds, No Accessory Muscle Use, No Respiratory Distress Cardiovascular: Regular Rate, Rhythm, No Gallop, Systolic Murmur Capillary Refill: Less Than 3 Seconds Extremity: No Pedal Edema Neurologic/Psychiatric: Other (Unable to follow direction but moving all extremities) Skin: Normal Color, Warm/Dry Results Lab Laboratory Tests 11/29/19 11:58 11/30/19 03:23 12/01/19 03:20 Assessment/Plan Assessment/Plan Acute Seizure -Monitor - keppra to IV. -Monitor close -Keep in step down secondary to acute seizure this morning. -Pt is a DNR/ DNI Agitation -D/C precedex -Will order sitter -Josedon PRN - UTI -Continue Zosyn [facility] -Vanco and Merrem -D/c Vanco -Repeat cultures were done yesterday with Blood cultures x 3 with one from [facility] -Echo was ordered yesterday to screen for endocarditis. Results pending. Pt may need SURY. -If repeat BC are still positive consult cardiology for SURY -currently NPO -Repeat Blood cultures x 3 r/o contamination-- were ordered 11/29 -Check echo to r/o endocarditis - pt has chronic drug use Multiple hospitalizations Acute on chronic renal failure Polysubstance abuse -Education Dehydration -IVF Coronary artery disease History of traumatic brain injury Anemia of uncertain etiology Hyperglycemia RICARDA COVINGTON DO Dec 01, 2019 05:20
[2019-12-01] MEDS: POTASSIUM CL 10MEQ/50ML IVPB 50 ML IV SCH (05:35)
[2019-12-01] MEDS: MAGNESIUM 1 GM/100 ML IVPB 100 ML IV SCH (05:36)
[2019-12-01] MEDS: KCL 20 MEQ TAB (K-DUR) PO SCH (06:20)
[2019-12-01] MEDS: MEROPENEM 500 MG in WATER (STERILE) FOR INJECTION 10 ML IV SCH ×4 (06:48→18:06)
[2019-12-01] MEDS ORDERED: VANCOMYCIN 1250 MG/NS 250 ML IVPB IV SCH ×2 (07:00)
--- NOTE | 2019-12-01 07:51 | Diagnostic Imaging Report ---
CHEST 1 VIEW, AP/PA ONLY INDICATION: Dyspnea. COMPARISON: 11/30/2019 FINDINGS: Stable left subclavian Port-A-Cath. Low lung volumes are similar. Mild soft tissue prominence of bilateral perihilar region is unchanged. No pleural effusion or pneumothorax. IMPRESSION: 1. Stable exam with perihilar prominence that may represent central vascular congestion or bronchovascular crowding from low lung volumes. Dictated by: Dictated on workstation # [id number]
[2019-12-01] MEDS: LEVETIRACETAM INJECTION 1,000 MG in NS (IVPB) 100 ML IV SCH ×2 (08:46→21:24)
[2019-12-01] MEDS: risperiDONE 1 MG (RisperDAL) TAB PO SCH ×2 (08:47→17:07)
[2019-12-01] MEDS: PHENobarbital 97.2 MG (1-1/2 GRAIN) TABLET PO SCH (08:47)
[2019-12-01] MEDS: ASPIRIN 81 MG CHEW (CHILDREN'S ASA) PO SCH (08:47)
[2019-12-01] MEDS: OXcarbazepine (TRILEPTAL) 300 MG TAB PO SCH ×2 (08:47→21:25)
--- NOTE | 2019-12-01 09:32 | NUR ---
This nurse called SBAR report to Adriana SALDIVAR on 4th floor. Patient will be transferring to room 420 via bed.
--- NOTE | 2019-12-01 09:50 | NUR ---
Patient arrived to room 420 via bed with this nurse, melita guerrero and JOHNNY azul.
--- NOTE | 2019-12-01 10:08 | NUR ---
RECIEVED PATIENT IN [id number] AND REPORT FROM ICU NURSE ISAEL
--- NOTE | 2019-12-01 10:13 | NUR ---
I HAVE REVIEWED THE ASSESSMENT FROM ICU NURSE ISAEL AND AGREE WITH IT
[2019-12-01] MEDS: LACTATED RINGERS 1,000 ML IV SCH (11:53)
--- NOTE | 2019-12-01 12:56 | Consultation-Cardiology ---
HPI-Cardiology Cardiology Consultation: Date of Consultation 12/01/19 Date of Admission Attending Physician Radha Combs MD Admitting Physician [facility] Consulting Physician Paolo JENKINS MD HPI: Time Seen by a Provider: 12:56 Chief Complaint: Possible endocarditis This is a 59-year-old lady who is had numerous hospitalization in our Hospital due to drug abuse and seizure disorder. She also has had numerous admissions for chest pain but does not have significant CAD. She presented with altered mental status and possible acute seizure. She was initially admitted to the ICU for seizure disorder/acute seizure and agitation requiring significant sedation. She was also found to be febrile with UTI sepsis, urine cultures shows Escherichia coli. Blood culture done on 11/28/2019 showed strep viridans. There is a question about endocarditis. Repeat blood cultures done on 11/29/2019 negative. She has been on IV antibiotics. Recent drug abuse as well. When I saw the patient she was not complaining of any cardiac symptoms. Review of Systems-Cardiology Review of Systems Constitutional: As described under HPI; No As described under HPI, No no s ymptoms reported, No chills, No fever, No lightheadedness Eyes: No As described under HPI, No no symptoms reported, No blindness, No blurred vision, No contact lenses, No drainage, No decreased acuity, No foreign body sensation, No pain, No vision change Ears/Nose/Throat: No As described under HPI, No no symptoms reported, No chronic hearing loss, No ear discharge, No ear pain, No nasal drainage, No ulcerations Respiratory: No no symptoms reported; As described under HPI; No As described under HPI, No cough, No orthopnea, No shortness of breath, No SOB with excertion Cardiovascular: No no symptoms reported; As described under HPI; No As described under HPI, No chest pain, No edema, No irregular heart rate, No lightheadedness, No palpitations Gastrointestinal: No no symptoms reported, No As described under HPI, No abdomen distended, No abdominal pain, No blood streaked bowels, No constipation, No diarrhea, No nausea, No vomiting, No stool coloration changes Genitourinary: No As described under HPI, No burning, No dysuria, No discharge, No frequency, No flank pain, No hematuria, No urgency : No Skin: No rash, No skin related problems, No ulcerations Psychiatric/Neurological: No anxiety, No depression, No seizure, No focal weakness, No syncope Hematologic: No bleeding abnormalities RJN-[id number]-[id number] Hx Patient Social History Marrital Status: single Employed/Student: unemployed Alcohol Use: Denies Use Recreational Drug Use: Yes Drug of Choice: + IV METH USE, THC USE Smoking Status: Never a Smoker Former smoker/When Quit: Oct 13, 2007 Type Used: Cigarettes 2nd Hand Smoke Exposure: Yes Recent Foreign Travel: No Recent Infectious Disease Expo: No Hospitalization with Isolation: Denies Immunizations Up To Date Tetanus Booster (TDap): Less than 5yrs Date of Pneumonia Vaccine: Jul 13, 2012 Date of Influenza Vaccine: Jul 15, 2019 Past Medical History PMH As described under Assessment. Family Medical History Family History: Abdominal aortic aneurysm 03 FATHER Alcoholism 03 FATHER 03 MOTHER 09 SISTER 09 SISTER Cancer 03 FATHER Cataract 03 FATHER 03 MOTHER Chest pain 03 MOTHER Family history: Diabetes mellitus 03 MOTHER Family history: Hypertension 03 MOTHER Family history: Thyroid disorder 03 MOTHER Headache 09 SISTER Heart disease 03 MOTHER History of drug abuse 03 FATHER 09 SISTER Myocardial infarction 03 MOTHER No Family History of: Isael's disease Aphasia Cancer of colon Congenital heart disease Congestive heart failure Cystic fibrosis Dementia Dysphagia Family history: Allergy Family history: Alzheimer's disease Family history: Arthritis Family history: Asthma Family history: Breast disease Family history: Cardiovascular disease Family history: Coronary thrombosis Family history: Gastrointestinal disease Family history: Glaucoma Family history: Osteoporosis Hearing loss Hereditary disease History of - anemia History of - disorder History of - respiratory disease Human immunodeficiency virus (HIV) seropositivity Hypercholesterolemia Infertile Kidney disease Malignant neoplasm of lung Parkinson's disease Prostate cancer Psychotic disorder Seizure disorder Stroke Tuberculosis Visual impairment Allergies and Home Medications Allergies Coded Allergies: nitrous oxide (Verified Allergy, Unknown, 06/08/07) Home Medications Acetaminophen 500 Mg Tablet, 1,000 MG PO Q6H PRN for PAIN-MILD, (Reported) Amlodipine Besylate 10 Mg Tablet, 5 MG PO BID, (Reported) Carvedilol 25 Mg Tab, 25 MG PO BID, (Reported) Clonidine HCl 0.2 Mg Tablet, 0.2 MG PO BID, (Reported) Famotidine 20 Mg Tablet, 20 MG PO BID, (Reported) Hydralazine HCl 100 Mg Tablet, 100 MG PO TID, (Reported) Levetiracetam 1,000 Mg Tablet, 1,000 MG PO BID, (Reported) Loratadine 10 Mg Tablet, 10 MG PO DAILY, (Reported) Losartan Potassium 100 Mg Tablet, 100 MG PO DAILY, (Reported) Oxcarbazepine 600 Mg Tablet, 600 MG PO BID, (Reported) Phenobarbital 64.8 Mg Tablet, 129.6 MG PO BID, (Reported) TAKES 2 (64.8MG) TABS TO EQUAL 129.6 Prazosin HCl 1 Mg Capsule, 1 MG PO HS, (Reported) Quetiapine Fumarate 25 Mg Tablet, 12.5 MG PO BID, (Reported) Patient Home Medication List Home Medication List Reviewed: Yes Physical Exam-Cardiology Physical Exam Vital Signs/I&O 12/01/19 12/01/19 12/01/19 12/01/19 03:00 04:00 04:00 04:00 Temp 37.2 37.1 Pulse 92 87 Resp 15 21 B/P (MAP) 172/97 (122) 148/75 (99) Pulse Ox 92 97 O2 Delivery Vapotherm Vapotherm Vapotherm Vapotherm O2 Flow Rate 30.00 30.00 30.00 30.00 40.00 40.00 FiO2 40 40 12/01/19 12/01/19 12/01/19 12/01/19 05:00 06:00 06:44 07:05 Temp 37.0 36.9 Pulse 81 78 91 Resp 21 B/P (MAP) 157/89 (111) 142/88 (106) Pulse Ox 97 95 96 O2 Delivery Vapotherm Vapotherm Vapotherm O2 Flow Rate 30.00 30.00 30.00 40.00 40.00 FiO2 40 12/01/19 12/01/19 12/01/19 12/01/19 07:09 08:00 08:00 10:06 Temp 36.1 36.2 Pulse 100 Resp 26 B/P (MAP) 178/90 (119) Pulse Ox 99 99 98 O2 Delivery Vapotherm Vapotherm Vapotherm O2 Flow Rate 25.00 25.00 25.00 40.00 FiO2 40 40 12/01/19 12/01/19 12/01/19 10:47 11:39 12:03 Temp 36.2 Pulse 105 Resp 24 B/P (MAP) 189/84 (119) Pulse Ox 96 96 96 O2 Delivery Vapotherm Vapotherm Vapotherm O2 Flow Rate 25.00 25.00 20.00 40.00 FiO2 40 12/01/19 00:00 Intake Total 777.5 ml Output Total 2550 ml Balance -1772.5 ml Capillary Refill : Less Than 3 Seconds Constitutional: appears stated age, AAO x 3; No apparent distress; well- developed, well-nourished HEENT: PERRL; No discharge; hearing is well preserved, oral hygience is good; No ulceration, No xanthelasmas are seen Neck: No carotid bruit; carotid pulses are 2 + bilaterally Respiratory: chest is bilaterally symmetric, lungs clear to auscultation Cardiovascular: regular rate-rhythm, S1 and S2, systolic murmur Gastrointestinal: soft, audible bowel sounds; No spleenomegaly Rectal: deferred Extremities: normal range of motion, non-tender, normal inspection; No clubbing, No cyanosis; no lower extremity edema bilateral; No significant edema Neurologic/Psychiatric: no motor/sensory deficits, alert, normal mood/affect, oriented x 3, power is 5/5 both on sides Skin: normal color, warm/dry, other (Healing incisional wound on the abdomen) Data Review Labs Laboratory Tests 11/30/19 18:27: Glucometer 116H 11/30/19 21:50: Lactic Acid Level 0.88 11/30/19 23:52: Glucometer 93 12/01/19 03:20: White Blood Count 6.0, Red Blood Count 3.10L, Hemoglobin 8.6L, Hematocrit 27L, Mean Corpuscular Volume 86, Mean Corpuscular Hemoglobin 28, Mean Corpuscular Hemoglobin Concent 32, Red Cell Distribution Width 14.5, Platelet Count 243, Mean Platelet Volume 9.8, Neutrophils (%) (Auto) 70, Lymphocytes (%) (Auto) 22, Monocytes (%) (Auto) 7, Eosinophils (%) (Auto) 2, Basophils (%) (Auto) 0, Neutrophils # (Auto) 4.2, Lymphocytes # (Auto) 1.3, Monocytes # (Auto) 0.4, Eosinophils # (Auto) 0.1, Basophils # (Auto) 0.0, Sodium Level 140, Potassium Level 3.9, Chloride Level 109H, Carbon Dioxide Level 18L, Anion Gap 13, Blood Urea Nitrogen 18, Creatinine 1.22, Estimat Glomerular Filtration Rate 45, BUN/Creatinine Ratio 15, Glucose Level 118H, Calcium Level 8.5, Phosphorus Level 3.5, Magnesium Level 1.6 12/01/19 11:55: Glucometer 89 Microbiology 11/29/19 Blood Culture - Preliminary, Resulted No growth 11/28/19 Urine Culture - Final, Complete Escherichia coli 11/28/19 Influenza Types A,B Antigen (JOHANA) - Final, Complete A/P-Cardiology Assessment/Admission Diagnosis Acute seizure disorder, Altered mental status, Acute sepsis, UTI sepsis, Bacteremia, Acute respiratory failure, Mild Coronary artery disease Acute renal failure, Drug abuse, Anemia Plan Acute respiratory failure, on Vapotherm. Defer to Dr. Balderrama. Acute seizure disorder managed by the primary team. UTI sepsis possible bacteremia. On IV antibiotics. Normal white count. No stigmata for infective endocarditis. Blood cultures on 11/29/2019 are negative. Patient has previous moderate tricuspid regurgitation. I will discuss with the primary team. If the primary team has strong clinical suspicion for infective endocarditis, transesophageal echocardiogram will be recommended. However since the patient is on Vapotherm, she may not tolerate transesophageal echocardiogram and may require intubation. Continue broad-spectrum IV antibiotics. May require repeat blood cultures as well. Acute on chronic renal insufficiency, renal function are better, continue with monitoring closely. Improved with IV fluids. Mild CAD, stable with no issues., Nuclear stress test done on 07/08/2019 which showed normal myocardial perfusion imaging during rest and stress. Nonischemic cardiomyopathy, not in acute congestive heart failure. Continue outpatient medical therapy., Echocardiogram done on 08/16/2019 shows normal LV function with an EF of 55-65 percent. Grade 2 diastolic dysfunction. Mildly dilated left atrium. Moderate mitral regurgitation. Moderate tricuspid regurgitation. PA pressure of 45 mmHg. Moderate mitral regurgitation, no active issues. Moderate tricuspid regurgitation, clinically stable. Hypertension, Thank you for your consultation. Please call me if you have any questions. Brinda Jenkins MD, FACP, FACC, FSCAI, FHRS, CCDS Interventional Cardiology Cardiac Electrophysiology Vascular Medicine and Endovascular Interventions Clinical Quality Measures DVT/VTE Risk/Contraindication: Risk Factor Score Per Nursin RFS Level Per Nursing on Admit: 2=Moderate Paolo JENKINS MD Dec 01, 2019 12:56
[2019-12-01] MEDS: LORazepam INJ 2 MG/ML (ATIVAN) VIAL IVP PRN (15:09)
--- NOTE | 2019-12-01 15:27 | NUR ---
PATIENT HAS HAD SERIES OF SEIZURES. FIRST BEGINNING AT 1500 - 1505. PATIENT HAD HER EYES CLOSED AND WAS BATTING HER HANDS IN THE AIR. I GAVE 2MG ATIVAN. THE SECOND BEGAN AT [id number]. PATIENT EXHIBITED THE SAME SYMPTOMS. A THIRD SEIZURE WAS BEGINNING AND I WAS CALLING DR. GAONA WHEN DR. COVINGTON SAID HE WOULD SPEAK TO HER AND HE WANTED HER BACK IN ICU. DURING THE PATIENT'S THIRD SEIZURE HER EYES WERE OPEN AND BLINKING.
--- NOTE | 2019-12-01 15:43 | NUR ---
PATIENT BROUGHT BACK UP TO ICU AFTER SERIES OF SEIZURES PER DR. COVINGTON. REPORT WAS GIVEN TO NAUTICAL INSTRUMENT MECHANIC ISAEL. PATIENTS DAUGHTER WAS INFORMED OF TRANSFER BY ME.
--- NOTE | 2019-12-01 15:43 | NUR ---
att Adriana RN at bedside room [id number] giving SBAR report to this nurse. Sitter remains with patient.
--- NOTE | 2019-12-01 17:21 | Pulmonary Progress Note ---
Standard Progress Note Progress Notes Date Seen by Provider: Dec 01, 2019 Time Seen by Provider: 17:18 Informed by RN pt is having multiple seizures. I instructed RN to transfer back to ICU for closer monitoring. Ativan 2mg IV given. Assessment & Plan Acute Seizure -Monitor - keppra to IV. -Monitor close -Keep in step down secondary to acute seizure this morning. -Pt is a DNR/ DNI HTN -Start lopressor PO -IF SBP still around 200 start Cardene gtt Agitation -D/C precedex -Will order sitter -Geodon PRN - UTI -Continue Zosyn Bacteremia from [facility] Tm 40.1 -Vanco and Merrem -D/c Vanco -Repeat cultures were done yesterday with Blood cultures x 3 with one from [facility] -Echo was ordered yesterday to screen for endocarditis. Results pending. Pt may need SURY. -If repeat BC are still positive consult cardiology for SURY -currently NPO -Repeat Blood cultures x 3 r/o contamination-- were ordered 11/29 -Check echo to r/o endocarditis - pt has chronic drug use Multiple hospitalizations Acute on chronic renal failure Polysubstance abuse -Education Dehydration -IVF Coronary artery disease History of traumatic brain injury Anemia of uncertain etiology Hyperglycemia Critical Care: Critically Ill Patient Time spent with patient (mins): 60 Focused Exam Lactate Level 11/29/19 11:57: Lactic Acid Level 0.48L 11/30/19 21:50: Lactic Acid Level 0.88 RICARDA COVINGTON DO Dec 01, 2019 17:20
--- NOTE | 2019-12-01 17:38 | NUR ---
This nurse notified at 1646 about patients elevated blood pressure, came to bedside. Orders received to give patient her ordered Risperdal that is scheduled at 2100 now and for 2099 Risperdal to not be administered. Swallow study done by this nurse, patient tolerated drinking water and applesauce. 1715 this nurse notified that patients blood pressure was taken manually and is 210/115 pulse 110. This nurse notified that patient tolerated drinking water and eating apple sauce and took her risperdal without difficulty. Order received to begin a cardene drip and to titrate to keep systolic blood pressure under 180. Order also received to place an order for a speech evaluation for tomorrow and to place patient on a dysphagia 1 diet as tolerated.
[2019-12-01] MEDS: niCARdipine IV 50 MG in NS (IVPB) 230 ML IV SCH (18:18)
--- NOTE | 2019-12-01 21:09 | Progress Note ---
Subjective Subjective/Events-last exam Patient moved to 4th floor. Patient unable to answer questions. Responds to voice and opens eyes but then falls back to sleep. Review of Systems Unable to answer due to clinical condition Focused Exam Lactate Level 11/29/19 11:57: Lactic Acid Level 0.48L 11/30/19 21:50: Lactic Acid Level 0.88 Objective Exam Last Set of Vital Signs Vital Signs Date Time Temp Pulse Resp B/P (MAP) Pulse Ox O2 Delivery O2 Flow Rate FiO2 12/01/19 18:43 90 Vapotherm 15.00 40 12/01/19 18:00 108 16 201/107 (138) 12/01/19 16:30 36.8 Capillary Refill : Less Than 3 Seconds I&O Intake and Output 12/01/19 00:00 Intake Total 2137.5 ml Output Total 5200 ml Balance -3062.5 ml Intake Oral 140 ml IV Total 1997.5 ml Output Urine Total 5200 ml General: Other (opens eyes to name, unable to answer questions) Lungs: Clear to Auscultation, Normal Air Movement Heart: Regular Rate, Other (systolic murmur) Abdomen: Normal Bowel Sounds, Soft, No Tenderness, No Masses Extremities: No Edema, No Tenderness/Swelling Skin: No Rashes, No Breakdown Results/Procedures Lab Laboratory Tests 11/30/19 21:50: Lactic Acid Level 0.88 11/30/19 23:52: Glucometer 93 12/01/19 03:20: White Blood Count 6.0, Red Blood Count 3.10L, Hemoglobin 8.6L, Hematocrit 27L, Mean Corpuscular Volume 86, Mean Corpuscular Hemoglobin 28, Mean Corpuscular Hemoglobin Concent 32, Red Cell Distribution Width 14.5, Platelet Count 243, M umm Platelet Volume 9.8, Neutrophils (%) (Auto) 70, Lymphocytes (%) (Auto) 22, Monocytes (%) (Auto) 7, Eosinophils (%) (Auto) 2, Basophils (%) (Auto) 0, Neutrophils # (Auto) 4.2, Lymphocytes # (Auto) 1.3, Monocytes # (Auto) 0.4, Eosinophils # (Auto) 0.1, Basophils # (Auto) 0.0, Sodium Level 140, Potassium Level 3.9, Chloride Level 109H, Carbon Dioxide Level 18L, Anion Gap 13, Blood Urea Nitrogen 18, Creatinine 1.22, Estimat Glomerular Filtration Rate 45, BUN/Creatinine Ratio 15, Glucose Level 118H, Calcium Level 8.5, Phosphorus Level 3.5, Magnesium Level 1.6, Iron Level <10L, Total Iron Binding Capacity See Est TIBCH, Unsaturated Iron Binding Capacity 242, Transferrin % Saturation See Est %SatH 12/01/19 11:55: Glucometer 89 12/01/19 18:06: Glucometer 101 Microbiology 11/30/19 Blood Culture - Preliminary, Resulted No growth 11/28/19 Urine Culture - Final, Complete Escherichia coli 11/28/19 Influenza Types A,B Antigen (JOHANA) - Final, Complete Assessment/Plan Assessment/Plan (1) Sepsis Status: Acute Assessment & Plan: 11/30: Continue to have fever, Blood Culture + for Strep, Urine growing Ecoli, Continue IVFs and IV antibiotics, Repeat blood cultures today 12/01: No fevers last 24hrs, continue IV antibiotics, repeated blood cultures pending Qualifiers: Qualified Codes: A40.8 - Other streptococcal sepsis; R65.20 - Severe sepsis without septic shock; N17.9 - Acute kidney failure, unspecified (2) Bacteremia Status: Acute Assessment & Plan: - Strep, repeat blood cultures, Gen surgery consulted for possible port removal when patient stable, Echo shows valvular dz w/o vegetations 12/01: Discussed concern with Dr Balderrama about patient using port to inject Meth, Will likely get port removed (3) Altered mental status Status: Acute Assessment & Plan: - Drug abuse vs infection vs ativan use, Will continue to monitor 11/30: Patient not responding this AM, transferred to ICU status last night Qualifiers: Qualified Codes: R41.82 - Altered mental status, unspecified (4) Urinary tract infection Status: Acute Assessment & Plan: - Continue IV antibiotics 11/30: Ecoli growing, continue IV antibiotics, sensitive to Rocephin Qualifiers: Qualified Codes: N39.0 - Urinary tract infection, site not specified (5) Acute renal failure Status: Acute Assessment & Plan: - hydration, repeat BMP in AM 11/30: Mild improvement, continue IVFs Qualifiers: Qualified Codes: N17.9 - Acute kidney failure, unspecified (6) Polysubstance abuse Status: Chronic (7) Seizure disorder Status: Chronic Assessment & Plan: 12/01: Patient reported to have multiple SZ today, Will continue to monitor, SZ precautions (8) Anemia Status: Chronic Assessment & Plan: - Chronic Dz, no signs of acute bleeding 11/30: iron studies in AM, Fe def in 2012 and patient has not had studies since then 12/01: Recommend IV iron infusion when infection is stable Qualifiers: Qualified Codes: D64.9 - Anemia, unspecified Clinical Quality Measures DVT/VTE Risk/Contraindication: Risk Factor Score Per Nursin RFS Level Per Nursing on Admit: 2=Moderate KWAKU GAONA MD Dec 01, 2019 21:09
[2019-12-01] MEDS: FAMOTIDINE 20 MG (PEPCID) TABLET PO SCH (21:24)
[2019-12-02] VITALS (23 sets, daily range): BP systolic 120–167; BP diastolic 70–107
[2019-12-02] MEDS: inSUlin ASPART (NovoLOG) 1 UNIT/0.01 ML (CHARGE PER UNIT) SC SCH ×4 (00:18→18:40)
[2019-12-02] MEDS: MEROPENEM 500 MG in WATER (STERILE) FOR INJECTION 10 ML IV SCH ×2 (00:32→06:33)
[2019-12-02] MEDS: niCARdipine IV 50 MG in NS (IVPB) 230 ML IV SCH ×2 (01:33→09:22)
[2019-12-02] MEDS: RT-ALBUTEROL/IPRATROPIUM 3 ML (DUONEB) VIAL INH SCH ×6 (02:06→22:06)
[2019-12-02 03:26] LABS: BASOPHILS % (AUTO) 1 % (0-10); EOSINOPHILS # (AUTO) 0.2 10^3/uL (0.0-0.3); EOSINOPHILS % (AUTO) 4 % (0-10); HEMATOCRIT 30 % (35-52); HEMOGLOBIN 9.4 G/DL (11.5-16.0); LYMPHOCYTES # (AUTO) 1.2 X 10^3 (1.0-4.0); LYMPHOCYTES % (AUTO) 30 % (12-44); MEAN CORPUSCULAR HEMOGLOBIN 27 PG (25-34); MEAN CORPUSCULAR HGB CONC 32 G/DL (32-36); MEAN CORPUSCULAR VOLUME 85 FL (80-99); MEAN PLATELET VOLUME 9.4 FL (7.4-10.4); MONOCYTES # (AUTO) 0.3 X 10^3 (0.0-1.0); MONOCYTES % (AUTO) 6 % (0-12); NEUTROPHILS # (AUTO) 2.5 X 10^3 (1.8-7.8); NEUTROPHILS % (AUTO) 59 % (42-75); PLATELET COUNT 331 10^3/uL (130-400); WHITE BLOOD COUNT 4.2 10^3/uL (4.3-11.0)
[2019-12-02 04:33] LABS: CALCIUM 8.8 MG/DL (8.5-10.1); CREATININE SERUM 0.96 MG/DL (0.60-1.30); MAGNESIUM 1.6 MG/DL (1.6-2.4); POTASSIUM 3.9 MMOL/L (3.6-5.0)
--- NOTE | 2019-12-02 05:30 | Pulmonary Progress Note ---
Subjective Date Seen by a Provider: Dec 02, 2019 Time Seen by a Provider: 05:25 Subjective/Events-last exam PT is more awake now. No Seizures since yesterday evening. Pt is still on cardene gtt. Sepsis Event Evaluation Height, Weight, BMI Height: 5'3.00" Weight: 155lbs. 8.0oz. [id number]; 30.67 BMI Method:Stated Focused Exam Lactate Level 11/29/19 11:57: Lactic Acid Level 0.48L 11/30/19 21:50: Lactic Acid Level 0.88 Exam Exam Vital Signs Date Time Temp Pulse Resp B/P (MAP) Pulse Ox O2 Delivery O2 Flow Rate FiO2 12/02/19 04:00 36.8 12/02/19 04:00 97 Vapotherm 20.00 50 12/02/19 04:00 97 Vapotherm 20.00 50 12/02/19 04:00 104 28 151/91 (111) 97 Vapotherm 20.00 50.00 12/02/19 02:07 90 Vapotherm 20.00 50 12/02/19 02:00 106 36 140/86 (104) 97 Vapotherm 20.00 50.00 12/02/19 01:00 106 12/02/19 01:00 106 29 143/83 (103) 95 Vapotherm 20.00 50.00 12/02/19 00:00 95 Vapotherm 20.00 50 12/02/19 00:00 112 21 156/95 (115) 96 Vapotherm 20.00 50.00 12/02/19 00:00 36.4 12/02/19 00:00 95 Vapotherm 20.00 50 12/01/19 23:55 89 Vapotherm 15.00 40 12/01/19 23:00 112 30 159/93 (115) 93 Vapotherm 15.00 40.00 12/01/19 22:30 110 35 154/90 (111) 91 Vapotherm 15.00 40.00 12/01/19 22:00 110 34 171/94 (119) 90 Vapotherm 15.00 40.00 12/01/19 21:21 90 Vapotherm 15.00 40 12/01/19 21:00 110 38 157/92 (113) 94 Vapotherm 15.00 40.00 12/01/19 21:00 98 Vapotherm 15.00 40 12/01/19 20:00 98 Vapotherm 15.00 40 12/01/19 20:00 110 22 156/89 (111) 94 Vapotherm 15.00 40.00 12/01/19 20:00 37.0 12/01/19 19:51 110 30 160/82 (108) 91 Vapotherm 15.00 40.00 12/01/19 19:00 109 34 90 Vapotherm 15.00 40.00 12/01/19 19:00 109 12/01/19 18:43 90 Vapotherm 15.00 40 12/01/19 18:00 108 16 201/107 (138) 95 Vapotherm 15.00 40.00 12/01/19 17:00 116 8 207/122 (150) 90 Vapotherm 15.00 40.00 12/01/19 16:30 36.8 12/01/19 16:00 99 Vapotherm 25.00 40 12/01/19 16:00 110 7 190/99 (129) 95 Vapotherm 15.00 40.00 12/01/19 15:45 Vapotherm 15.00 40.00 12/01/19 15:21 90 Vapotherm 20.00 40 12/01/19 12:03 36.2 105 24 189/84 (119) 96 Vapotherm 20.00 40.00 12/01/19 11:39 96 Vapotherm 25.00 12/01/19 10:47 96 Vapotherm 25.00 40 12/01/19 10:06 36.2 100 26 178/90 (119) 98 Vapotherm 25.00 40.00 12/01/19 08:00 99 Vapotherm 25.00 40 12/01/19 08:00 99 Vapotherm 25.00 40 12/01/19 07:09 36.1 12/01/19 07:05 96 Vapotherm 30.00 40 12/01/19 06:44 91 12/01/19 06:00 36.9 78 21 142/88 (106) 95 Vapotherm 30.00 40.00 I & O 12/02/19 07:00 Intake Total 1660 ml Output Total 2925 ml Balance -1265 ml Height & Weight Height: 5'3.00" Weight: 155lbs. 8.0oz. [id number]; 30.67 BMI Method:Stated General Appearance: No Apparent Distress, Chronically ill HEENT: Other (Poor dentition) Neck: Limited Range of Motion Respiratory: Lungs Clear, Normal Breath Sounds, No Accessory Muscle Use, No Respiratory Distress Cardiovascular: Regular Rate, Rhythm, No Gallop, Systolic Murmur Capillary Refill: Less Than 3 Seconds Extremity: No Pedal Edema Neurologic/Psychiatric: Alert, Other (Unable to follow direction but moving all extremities) Skin: Normal Color, Warm/Dry Results Lab Laboratory Tests 12/01/19 03:20 12/02/19 03:15 Assessment/Plan Assessment/Plan Acute on chronic Seizures -Last seizure was yesterday evening. -Monitor - keppra IV. -Monitor close -Pt is a DNR/ DNI HTN - Restart Clonidine, Lisinopril, and lopressor PO -Titrate Cardene gtt to D/C Pulmonary edema with small pleural effusions -Give lasix 80mg IV x 1 Agitation - improved -Will order sitter -Josedon PRN - UTI -Continue Zosyn Bacteremia from mediport Tm 40.1 -Continue Merrem -D/c Vanco -Repeat cultures were done yesterday with Blood cultures x 3 with one from medip[facility] --Pt may need SURY - cardiology following -Thus far repeat blood cultures are negative -PT has mediport with suspect illicit drug injections -Pt may need mediport removed secondary to persistent illicit drug use and suspected injection -currently NPO -Repeat Blood cultures x 3 r/o contamination-- were ordered 11/29 -Check echo to r/o endocarditis - pt has chronic drug use Multiple hospitalizations Acute on chronic renal failure Polysubstance abuse -Education Dehydration -IVF Coronary artery disease History of traumatic brain injury Anemia of uncertain etiology Hyperglycemia RICARDA COVINGTON DO Dec 02, 2019 05:30
[2019-12-02] MEDS ORDERED: FUROSEMIDE 40 MG/4 ML INJ (LASIX) IVP ONE (05:45)
[2019-12-02] MEDS ORDERED: TROUGH ORDER-PHARMACY XX NR (06:00)
[2019-12-02] MEDS: LORazepam INJ 2 MG/ML (ATIVAN) VIAL IVP PRN (06:02)
[2019-12-02] MEDS: MAGNESIUM 1 GM/100 ML IVPB 100 ML IV SCH (06:24)
[2019-12-02] MEDS: KCL 20 MEQ TAB (K-DUR) PO SCH (06:24)
[2019-12-02] MEDS: POTASSIUM CL 10MEQ/50ML IVPB 50 ML IV SCH ×5 (06:24→09:16)
--- NOTE | 2019-12-02 06:50 | NUR ---
DR. COVINGTON NOTIFIED THAT PATIENT RECEIVED ATIVAN D/T SEIZURE. SEIZURE LASTED 3 MIN.
--- NOTE | 2019-12-02 07:45 | Diagnostic Imaging Report ---
INDICATION: Abdominal pain. Comparison made with prior examination from 12/01/2019. FINDINGS: There is cardiomegaly. There are patchy bibasal infiltrates right greater than left. There is some mild venous congestion. There is no pleural effusion or pneumothorax. Mediastinum is unremarkable. A left subclavian central venous catheter has its tip in superior vena cava. IMPRESSION: Patchy bibasilar infiltrates right greater than left. Cardiomegaly and mild central pulmonary venous congestion. Dictated by: Dictated on workstation # [id number]
--- NOTE | 2019-12-02 08:49 | Speech Therapy Progress Note ---
Therapy Progress Note Orders received for Speech Therapy evaluation. Speech Therapist is not available this date. Nurse notified. Will continue to follow. TIFFANY SHERWOOD PT Dec 02, 2019 08:49
[2019-12-02] MEDS: meTOprolol TARTRATE 50 MG (LOPRESSOR) TAB PO SCH ×2 (09:00→20:32)
[2019-12-02] MEDS: PHENobarbital 97.2 MG (1-1/2 GRAIN) TABLET PO SCH (09:00)
[2019-12-02] MEDS: ASPIRIN 81 MG CHEW (CHILDREN'S ASA) PO SCH (09:01)
[2019-12-02] MEDS: LEVETIRACETAM INJECTION 1,000 MG in NS (IVPB) 100 ML IV SCH ×2 (09:01→20:31)
[2019-12-02] MEDS: cloNIDine 0.1 MG (CATAPRES) TAB PO SCH ×2 (09:01→20:33)
[2019-12-02] MEDS: OXcarbazepine (TRILEPTAL) 300 MG TAB PO SCH ×2 (09:01→20:33)
[2019-12-02] MEDS: risperiDONE 1 MG (RisperDAL) TAB PO SCH ×2 (09:01→20:32)
[2019-12-02] MEDS: lisINopril 40 MG (PRINIVIL) TABLET PO SCH (09:06)
[2019-12-02] MEDS ORDERED: cefTRIAXone FOR IV USE 2,000 MG in WATER (STERILE) FOR INJECTION 20 ML IV SCH (09:15)
--- NOTE | 2019-12-02 09:36 | Pulmonary Progress Note ---
Standard Progress Note Progress Notes Date Seen by Provider: Dec 02, 2019 Time Seen by Provider: 09:31 PT is doing better. I question if seizures are real. Assessment & Plan Acute on chronic Seizures -Probable pseudoseizures -Monitor - keppra IV. -Monitor close -Pt is a DNR/ DNI HTN - Restart Clonidine, Lisinopril, and lopressor PO -Titrate Cardene gtt to D/C Pulmonary edema with small pleural effusions -Give lasix 80mg IV x 1 Agitation - improved -Will order sitter -Josedon PRN - UTI -Continue Zosyn Bacteremia from [place] Tm 40.1 -Continue Merrem -D/c Vanco -Repeat cultures were done yesterday with Blood cultures x 3 with one from [facility] --I discussed plan of care with pharmacy, Dr. Arriaga, and Dr. Jenkins. We doubt pt has endocarditis. Repeat Blood cultures are negative. She has not had a recent fever. I am going to change Abx to Omnicef. Will continue to monitor pt in ICU today. Possible discharge tomorrow. -Repeat Blood cultures x 3 r/o contamination-- were ordered 11/29 - pt has chronic drug use Multiple hospitalizations Acute on chronic renal failure Polysubstance abuse -Education Dehydration -IVF Coronary artery disease History of traumatic brain injury Anemia of uncertain etiology Hyperglycemia Critical Care: Critically Ill Patient Time spent with patient (mins): 30 Focused Exam Lactate Level 11/29/19 11:57: Lactic Acid Level 0.48L 11/30/19 21:50: Lactic Acid Level 0.88 RICARDA COVINGTON DO Dec 02, 2019 09:36
--- NOTE | 2019-12-02 09:44 | NUR ---
Pt lives alone in an apt in [facility] She has had multiple hospitalizations here and at [facility]. She has history of both psychiatric and drug and alcohol treatment with a long standing severe seizure disorder. Pt is active in the community and when asked about her positive methamphetamine test she denies using and has no idea how her test was positive. She has a paid caregiver 12-15 hours a week. She always refuses any type of supportive placements. She has one son living in [place] and her sister Eileen Stephen is her DPOA for health care and contacts her frequently by phone. Will follow and assist.
[2019-12-02] MEDS: CEFDINIR 300 MG (OMNICEF) CAP PO SCH ×2 (10:08→22:38)
[2019-12-02] MEDS ORDERED: LORazepam INJ 2 MG/ML (ATIVAN) VIAL IVP PRN (11:30)
--- NOTE | 2019-12-02 12:14 | Physical Therapy Evaluation ---
PT Evaluation-General Medical Diagnosis Admission Date Nov 28, 2019 at 13:35 Medical Diagnosis: ARF, UTI, Abdominal pain Onset Date: Nov 28, 2019 Therapy Diagnosis Therapy Diagnosis: Deconditioning Height/Weight Height (Feet): 5 Height (Inches): 3.00 Weight (Pounds): 155 Weight (Ounces): 8.0 Precautions Precautions/Isolations: Contact Isolation, Seizure, Fall Prevention Referral Physician: Conchis Reason for Referral: Evaluation/Treatment Medical History Pertinent Medical History: Arthritis, COPD, CVA, DM, GERD, HTN, Renal Insufficiency, Smoking, TBI Additional Medical History Drug (meth) user, cervical cancer, bipolar, valvular heat disease, seizure disorder, pancreatitis, hepatitis. Current History Patient presented to ER via EMS with AMS and abdominal pain. Reviewed History: Yes Social History Home: Apartment Current Living Status: Alone Entry Into Home: Level Entry PT Steps Into Home: 0 PT Steps Inside Home: 0 Prior Prior Level of Function SCALE: Activities may be completed with or without assistive devices. 5-Gbqtcjzlzf-rvnutss completes the activity by him/herself with no assistance from a helper. 5-Set-up or Clean-up Assistance-helper sets up or cleans up; patient completes activity. [place] assists only prior to or following the activity. 4-Supervision or Touching Assistance-helper provides verbal cues and/or touching/steadying and/or contact guard assistance as patient completes activity. Assistance may be provided throughout the activity or intermittently. 3-Partial/Moderate Assistance-helper does LESS THAN HALF the effort. [place] lifts, holds or supports trunk or limbs, but provides less than half the effort. 2-Substantial/Maximal Assistance-helper does MORE THAN HALF the effort. [place] lifts or holds trunk or limbs and provides more than half the effort. 6-Jpinhqxco-nktsek does ALL the effort. Patient does none of the effort to complete the activity. Or, the assistance of 2 or more helpers is required for the patient to complete the activity. If activity was not attempted, code reason: 7-Patient Refused. 9-Not Applicable-not attempted and the patient did not perform the activity before the current illness, exacerbation or injury. 10-Not Attempted due to Environmental Limitations-(lack of equipment, weather restraints, etc.). 88-Not Attempted due to Medical Conditions or Safety Concerns. Bed Mobility: 6 Transfers (B,C,W/C): 6 Gait: 6 Indoor Mobility (Ambulation): Independent Prior Devices Use: Walker PT Evaluation-Current Subjective Patient is agreeable to therapy at this time. Pain Numeric Pain Scale: 7 Location: Lower Location Body Site: Back Objective Patient Orientation: Person Attachments: Oxygen, [place] Catheter, IV ROM/Strength ROM Lower Extremities WFL BLE Strength Lower Extremities 4/5 gross BLE Integumentary/Posture Integumentary See nursing notes. Bowel Incontinence: No Bladder Incontinence: [place] Cath Sensory Vision: Functional Hearing: Functional Sensation Right Lower Extremit: Intact Sensation Left Lower Extremity: Intact Transfers Sit to Stand (QC): 4 Chair/Qdq-dj-Ccrlt Xfer(QC): 4 Toilet Transfer: 4 Gait Does the Patient Walk?: Yes Mode of Locomotion: Walk Anticipated Mode of Locomotion: Walk Walk 10 feet (QC): 4 Walk 50 ft with 2 Turns(QC): 4 Distance: 60' Gait Assistive Device: FWW Comments/Gait Description CGA for safety. Patient is steady during ambulation. Wheelchair Training Does the Pt Use a Wheelchair?: No Balance Sitting Static: Good Sitting Dynamic: Good Standing Static: Fair Standing Dynamic: Fair Assessment/Needs Patient fatigued quickly during ambulation but once sitting was ready to walk more. Patient is steady during ambulation with cueing on direction. Patient will benefit from skilled services to aide in reaching her maximum LOF. Rehab Potential: Fair PT Poison Information Specialist Goals [facility] Goals PT [facility] Goals Time Frame: Dec 09, 2019 Roll Left & Right (QC): 6 Sit to Lying (QC): 6 Lying-Sitting on Side/Bed(QC): 6 Sit to Stand (QC): 6 Chair/Sjt-na-Owxzo Xfer(QC): 6 Does the Patient Walk: Yes Walk 10 feet (QC): 6 Walk 50ft with 2 Turns (QC): 6 Walk 150 ft (QC): 6 PT Plan Problem List Problem List: Activity Tolerance, Functional Strength, Safety, Balance, Gait, Transfer, Bed Mobility, ROM Treatment/Plan Treatment Plan: Continue Plan of Care Treatment Plan: Bed Mobility, Education, Functional Activity Bernie, Functional Strength, Gait, Safety, Therapeutic Exercise, Transfers Treatment Duration: Dec 09, 2019 Frequency: 5 times per week Estimated Hrs Per Day: .25 hour per day Patient and/or Family Agrees t: Yes Safety Risks/Education Patient Education: Gait Training, Transfer Techniques Teaching Recipient: Patient Teaching Methods: Discussion Response to Teaching: Reinforcement Needed Time/GCodes Time In: 1132 Time Out: 1150 Total Billed Treatment Time: 18 Total Billed Treatment 1 visit EVM 18 ANURAG GENTILE PT Dec 02, 2019 12:14
--- NOTE | 2019-12-02 13:51 | Cardiology Progress Note ---
Subjective Date Seen by Provider: Dec 02, 2019 Time Seen by Provider: 11:40 Subjective/Events-last exam Patient is alert and sitting in chair with no acute distress. No family at bedside. Denies chest pain, SOB, N/V, F/C at this time Patient seems to be improving and denies any questions or concerns at this time. Patient strongly denies using illicit IV drugs. Review of Systems General: No Chills, No Night Sweats HEENT: No Head Aches, No Visual Changes Pulmonary: No Dyspnea, No Cough Cardiovascular: No: Chest Pain, Palpitations Gastrointestinal: No: Nausea, Vomiting, Abdominal Pain Focused Exam Lactate Level 11/30/19 21:50: Lactic Acid Level 0.88 Objective-Cardiology Exam Last Set of Vital Signs Vital Signs 12/02/19 12/02/19 12/02/19 12/02/19 06:38 11:45 12:00 12:35 Temp 37.2 Pulse 100 Resp 25 B/P (MAP) 132/92 (105) Pulse Ox 97 O2 Delivery Nasal Cannula O2 Flow Rate 3.00 FiO2 30 Capillary Refill : Less Than 3 Seconds I&O Intake and Output 12/02/19 00:00 Intake Total 1360 ml Output Total 2475 ml Balance -1115 ml Intake Oral 240 ml IV Total 1120 ml Output Urine Total 2475 ml General: Other (opens eyes to name, unable to answer questions) Lungs: Clear to Auscultation, Normal Air Movement Heart: Regular Rate, Other (systolic murmur) Abdomen: Normal Bowel Sounds, Soft, No Tenderness, No Masses Extremities: No Edema, No Tenderness/Swelling Skin: No Rashes, No Breakdown Neuro: Sensation Intact, Cranial Nerves 3-12 NL Results Lab Laboratory Tests 12/02/19 03:15 A/P-Cardiology Admission Diagnosis Acute seizure disorder, Altered mental status, Acute sepsis, UTI sepsis, Bacteremia, Acute respiratory failure, Mild Coronary artery disease Acute renal failure, Drug abuse, Anemia Assessment/Plan Acute respiratory failure, on Vapotherm. Defer to Dr. Balderrama. Acute seizure disorder managed by the primary team. Patient transferred back to the ICU due to an acute seizure 12/01/2019. UTI sepsis possible bacteremia. On IV antibiotics. Normal white count. No stigmata for infective endocarditis. Blood cultures on 11/29/2019 are negative. Patient has previous moderate tricuspid regurgitation. I will discuss with the primary team. If the primary team has strong clinical suspicion for infective e ndocarditis, transesophageal echocardiogram will be recommended. However since the patient is on Vapotherm, she may not tolerate transesophageal echocardiogram and may require intubation. Continue broad-spectrum IV antibiotics. I have discussed at length with both Dr. Balderrama and Dr. Arriaga. Currently responding to medical therapy and improving from a sepsis point of view. May require repeat blood cultures as well. Patent is improving on current medical therapy, will continue to follow and re-address SURY with primary team if patient shows evidence of non-resolving infection or positive blood cultures with endocarditis specific organisms. Acute on chronic renal insufficiency, renal function are better, continue with monitoring closely. Improved with IV fluids. Mild CAD, stable with no issues., Nuclear stress test done on 07/08/2019 which showed normal myocardial perfusion imaging during rest and stress. Nonischemic cardiomyopathy, not in acute congestive heart failure. Continue outpatient medical therapy., Echocardiogram done on 08/16/2019 shows normal LV function with an EF of 55-65 percent. Grade 2 diastolic dysfunction. Mildly dilated left atrium. Moderate mitral regurgitation. Moderate tricuspid regurgitation. PA pressure of 45 mmHg. Moderate mitral regurgitation, no active issues. Moderate tricuspid regurgitation, clinically stable. Hypertension, Thank you for your consultation. Please call me if you have any questions Clinical Quality Measures DVT/VTE Risk/Contraindication: Risk Factor Score Per Nursin RFS Level Per Nursing on Admit: 2=Moderate Supervisory-Addendum Brief Verification & Attestation Participated in pt care: history, MDM, physical Personally performed: exam, history, MDM, supervision of care Care discussed with: Medical Student Procedures: n/a Results interpretation: Verified all documentation Verification and Attestation of Medical Student E/M Service A medical student performed and documented this service in my presence. I reviewed and verified all information documented by the medical student and made modifications to such information, when appropriate. I personally performed the physical exam and medical decision making. Paolo Jenkins, Dec 02, 2019,14:01 SANJANA LYONS [facility] Dec 02, 2019 13:51 Paolo JENKINS MD Dec 02, 2019 14:14
[2019-12-02] MEDS: LACTATED RINGERS 1,000 ML IV SCH (14:32)
[2019-12-02] MEDS ORDERED: WATER (STERILE) FOR INJECTION 10 ML ONE (20:13)
[2019-12-02] MEDS: ZIPRASIDONE 20 MG INJ (GEODON) VIAL IM PRN (20:21)
[2019-12-02] MEDS: FAMOTIDINE 20 MG (PEPCID) TABLET PO SCH (20:33)
--- NOTE | 2019-12-02 21:37 | Progress Note ---
Subjective Subjective/Events-last exam Patient awake and at baseline this AM. Answering questions appropriately. Denies any pain. Having some shortness of breath. Review of Systems Pulmonary: Dyspnea, Cough Cardiovascular: No: Chest Pain, Palpitations Gastrointestinal: No: Nausea, Vomiting, Abdominal Pain Neurological: Weakness, Incoordination Focused Exam Lactate Level 11/30/19 21:50: Lactic Acid Level 0.88 Objective Exam Last Set of Vital Signs Vital Signs Date Time Temp Pulse Resp B/P (MAP) Pulse Ox O2 Delivery O2 Flow Rate FiO2 12/02/19 18:00 95 High Flow N/C 3.00 12/02/19 17:00 86 29 157/94 (115) 12/02/19 11:45 37.2 12/02/19 06:38 30 Capillary Refill : Less Than 3 Seconds I&O Intake and Output 12/02/19 00:00 Intake Total 1360 ml Output Total 2475 ml Balance -1115 ml Intake Oral 240 ml IV Total 1120 ml Output Urine Total 2475 ml General: Alert, Cooperative, No Acute Distress Lungs: Clear to Auscultation, Normal Air Movement Heart: Regular Rate, Other (systolic murmur 4/6) Abdomen: Normal Bowel Sounds, Soft, No Tenderness, No Masses Extremities: No Edema, No Tenderness/Swelling Skin: No Rashes, No Breakdown Neuro: Normal Speech, Sensation Intact, Cranial Nerves 3-12 NL Results/Procedures Lab Laboratory Tests 12/01/19 23:54: Glucometer 112H 12/02/19 03:15: White Blood Count 4.2L, Red Blood Count 3.46L, Hemoglobin 9.4L, Hematocrit 30L, Mean Corpuscular Volume 85, Mean Corpuscular Hemoglobin 27, Mean Corpuscular Hemoglobin Concent 32, Red Cell Distribution Width 15.0H, Platelet Count 331, Mean Platelet Volume 9.4, Neutrophils (%) (Auto) 59, Lymphocytes (%) (Auto) 30, Monocytes (%) (Auto) 6, Eosinophils (%) (Auto) 4, Basophils (%) (Auto) 1, Neutrophils # (Auto) 2.5, Lymphocytes # (Auto) 1.2, Monocytes # (Auto) 0.3, Eosinophils # (Auto) 0.2, Basophils # (Auto) 0.0, Sodium Level 141, Potassium Level 3.9, Chloride Level 106, Carbon Dioxide Level 21, Anion Gap 14, Blood Urea Nitrogen 12, Creatinine 0.96, Estimat Glomerular Filtration Rate 59, BUN/Creatinine Ratio 13, Glucose Level 93, Calcium Level 8.8, Phosphorus Level 3.0, Magnesium Level 1.6, B-Type Natriuretic Peptide 345.6H 12/02/19 11:18: Glucometer 159H 12/02/19 18:07: Glucometer 137H Microbiology 11/30/19 Blood Culture - Preliminary, Resulted No growth 11/28/19 Urine Culture - Final, Complete Escherichia coli 11/28/19 Influenza Types A,B Antigen (JOHANA) - Final, Complete Assessment/Plan Assessment/Plan (1) Sepsis Status: Acute Assessment & Plan: 11/30: Continue to have fever, Blood Culture + for Strep, Urine growing Ecoli, Continue IVFs and IV antibiotics, Repeat blood cultures today 12/01: No fevers last 24hrs, continue IV antibiotics, repeated blood cultures pending 12/02: Blood culture NGTD, no fevers Qualifiers: Qualified Codes: A40.8 - Other streptococcal sepsis; R65.20 - Severe sepsis without septic shock; N17.9 - Acute kidney failure, unspecified (2) Bacteremia Status: Acute Assessment & Plan: - Strep, repeat blood cultures, Gen surgery consulted for possible port removal when patient stable, Echo shows valvular dz w/o vegetations 12/01: Discussed concern with Dr Balderrama about patient using port to inject Meth, Will likely get port removed 12/02: Echo normal and blood culture neg will leave port in place, patient denies using port for drug use (3) Altered mental status Status: Acute Assessment & Plan: - Drug abuse vs infection vs ativan use, Will continue to monitor 11/30: Patient not responding this AM, transferred to ICU status last night 12/02: Patient at baseline Qualifiers: Qualified Codes: R41.82 - Altered mental status, unspecified (4) Urinary tract infection Status: Acute Assessment & Plan: - Continue IV antibiotics 11/30: Ecoli growing, continue IV antibiotics, sensitive to Rocephin Qualifiers: Qualified Codes: N39.0 - Urinary tract infection, site not specified (5) Acute renal failure Status: Resolved Assessment & Plan: - hydration, repeat BMP in AM 11/30: Mild improvement, continue IVFs Qualifiers: Qualified Codes: N17.9 - Acute kidney failure, unspecified (6) Polysubstance abuse Status: Chronic (7) Seizure disorder Status: Chronic Assessment & Plan: 12/01: Patient reported to have multiple SZ today, Will continue to monitor, SZ precautions (8) Anemia Status: Chronic Assessment & Plan: - Chronic Dz, no signs of acute bleeding 11/30: iron studies in AM, Fe def in 2012 and patient has not had studies since then 12/01: Recommend IV iron infusion when infection is stable 12/02: Venofer today x 1 dose Qualifiers: Qualified Codes: D64.9 - Anemia, unspecified Clinical Quality Measures DVT/VTE Risk/Contraindication: Risk Factor Score Per Nursin RFS Level Per Nursing on Admit: 2=Moderate KWAKU GAONA MD Dec 02, 2019 21:37
[2019-12-02] MEDS ORDERED: IRON SUCROSE 200 MG/10 ML (VENOFER) VIAL IV ONE (21:45)
--- NOTE | 2019-12-02 22:30 | NUR ---
CALLED E-ICU AND INFORMED THAT PATIENT WAS VERY AGITATED AND ATTEMPTING TO EXIT THE BED. EXPRESSED CONCERN THAT PATIENT WOULD HIT STAFF OR FALL. PATIENT BELLIGERENT AND YELLING. RECEIVED ORDER FOR HALDOL 5MG IV ONCE. SEE EMAR FOR DETAILS.
[2019-12-02] MEDS ORDERED: HALOPERIDOL 5 MG/ML (HALDOL) AMP IV ONE (22:45)
[2019-12-03] VITALS (14 sets, daily range): BP systolic 120–188; BP diastolic 64–108
[2019-12-03] MEDS: inSUlin ASPART (NovoLOG) 1 UNIT/0.01 ML (CHARGE PER UNIT) SC SCH ×4 (01:09→18:04)
[2019-12-03] MEDS ORDERED: HALOPERIDOL 5 MG/ML (HALDOL) AMP ONE (01:13)
[2019-12-03] MEDS: RT-ALBUTEROL/IPRATROPIUM 3 ML (DUONEB) VIAL INH SCH ×6 (02:21→22:23)
[2019-12-03 03:44] LABS: BASOPHILS % (AUTO) 0 % (0-10); EOSINOPHILS # (AUTO) 0.2 10^3/uL (0.0-0.3); EOSINOPHILS % (AUTO) 5 % (0-10); HEMATOCRIT 28 % (35-52); HEMOGLOBIN 8.9 G/DL (11.5-16.0); LYMPHOCYTES # (AUTO) 1.6 X 10^3 (1.0-4.0); LYMPHOCYTES % (AUTO) 35 % (12-44); MEAN CORPUSCULAR HEMOGLOBIN 27 PG (25-34); MEAN CORPUSCULAR HGB CONC 32 G/DL (32-36); MEAN CORPUSCULAR VOLUME 86 FL (80-99); MEAN PLATELET VOLUME 9.7 FL (7.4-10.4); MONOCYTES # (AUTO) 0.3 X 10^3 (0.0-1.0); MONOCYTES % (AUTO) 6 % (0-12); NEUTROPHILS # (AUTO) 2.5 X 10^3 (1.8-7.8); NEUTROPHILS % (AUTO) 54 % (42-75); PLATELET COUNT 395 10^3/uL (130-400); RED CELL DISTRIBUTION WIDTH 14.8 % (10.0-14.5); WHITE BLOOD COUNT 4.6 10^3/uL (4.3-11.0)
[2019-12-03 04:08] LABS: CREATININE SERUM 1.13 MG/DL (0.60-1.30); MAGNESIUM 1.6 MG/DL (1.6-2.4); PHOSPHORUS 4.3 MG/DL (2.3-4.7); POTASSIUM 4.7 MMOL/L (3.6-5.0)
--- NOTE | 2019-12-03 04:34 | Pulmonary Progress Note ---
Subjective Time Seen by a Provider: 04:31 Subjective/Events-last exam PT asleep currently Sepsis Event Evaluation Height, Weight, BMI Height: 5'3.00" Weight: 155lbs. 8.0oz. 70.099593ke; 30.67 BMI Method:Stated Focused Exam Lactate Level 11/30/19 21:50: Lactic Acid Level 0.88 Exam Exam Vital Signs Date Time Temp Pulse Resp B/P (MAP) Pulse Ox O2 Delivery O2 Flow Rate FiO2 12/03/19 03:00 80 23 146/80 (102) Vapotherm 20.00 50.00 12/03/19 02:00 74 17 149/69 (95) Vapotherm 20.00 50.00 12/03/19 01:00 80 12/03/19 01:00 78 21 163/93 (116) Vapotherm 20.00 50.00 12/03/19 00:00 84 22 162/87 (112) Vapotherm 20.00 50.00 12/03/19 00:00 97 Nasal Cannula 3.00 12/03/19 00:00 97 Nasal Cannula 3.00 12/03/19 00:00 36.4 12/02/19 23:00 76 22 120/70 (87) Vapotherm 20.00 50.00 12/02/19 22:09 96 High Flow N/C 3.00 12/02/19 22:00 73 13 144/79 (100) Vapotherm 20.00 50.00 12/02/19 21:00 89 21 154/83 (106) Vapotherm 20.00 50.00 12/02/19 20:00 90 28 141/84 (103) 95 Vapotherm 20.00 50.00 12/02/19 20:00 96 Nasal Cannula 3.00 12/02/19 20:00 96 Nasal Cannula 3.00 12/02/19 20:00 36.9 12/02/19 19:00 90 12/02/19 19:00 86 23 167/93 (117) 92 Vapotherm 20.00 50.00 12/02/19 18:00 95 High Flow N/C 3.00 12/02/19 17:00 86 29 157/94 (115) Vapotherm 20.00 50.00 12/02/19 16:00 85 26 137/84 (101) Vapotherm 20.00 50.00 12/02/19 16:00 Nasal Cannula 3.00 12/02/19 16:00 Nasal Cannula 3.00 12/02/19 15:00 90 19 126/94 (105) Vapotherm 20.00 50.00 12/02/19 14:19 95 High Flow N/C 3.00 12/02/19 14:00 86 25 132/80 (97) Vapotherm 20.00 50.00 12/02/19 13:00 90 25 128/82 (97) Vapotherm 20.00 50.00 12/02/19 12:41 90 12/02/19 12:35 97 Nasal Cannula 3.00 12/02/19 12:00 100 25 132/92 (105) Vapotherm 20.00 50.00 12/02/19 11:58 97 Nasal Cannula 3.00 12/02/19 11:45 37.2 12/02/19 11:00 105 32 141/101 (114) 100 Vapotherm 20.00 50.00 12/02/19 10:45 95 High Flow N/C 3.00 12/02/19 10:00 111 29 151/89 (109) Vapotherm 20.00 50.00 12/02/19 09:31 36.6 12/02/19 09:00 109 33 139/88 (105) Vapotherm 20.00 50.00 12/02/19 08:35 97 Nasal Cannula 3.00 12/02/19 08:15 97 Nasal Cannula 3.00 12/02/19 08:00 112 16 146/100 (115) Vapotherm 20.00 50.00 12/02/19 07:00 114 12 161/107 (125) 94 Vapotherm 20.00 50.00 12/02/19 07:00 115 12/02/19 06:38 95 Vapotherm 15.00 30 12/02/19 06:00 114 33 141/80 (100) 97 Vapotherm 20.00 50.00 12/02/19 05:00 110 24 166/87 (113) 95 Vapotherm 20.00 50.00 I & O 12/03/19 07:00 Intake Total 1270 ml Output Total 2850 ml Balance -1580 ml Height & Weight Height: 5'3.00" Weight: 155lbs. 8.0oz. 70.644010br; 30.67 BMI Method:Stated General Appearance: No Apparent Distress, Chronically ill HEENT: Other (Poor dentition) Neck: Limited Range of Motion Respiratory: Lungs Clear, Normal Breath Sounds, No Accessory Muscle Use, No Respiratory Distress Cardiovascular: Regular Rate, Rhythm, No Gallop, Systolic Murmur Capillary Refill: Less Than 3 Seconds Extremity: No Pedal Edema Neurologic/Psychiatric: Alert, Other (Unable to follow direction but moving all extremities) Skin: Normal Color, Warm/Dry Results Lab Laboratory Tests 12/02/19 03:15 12/03/19 03:30 Assessment/Plan Assessment/Plan Acute on chronic Seizures -Probable pseudoseizures -Monitor - keppra IV. -Monitor close -Pt is a DNR/ DNI HTN - Clonidine, Lisinopril, and lopressor PO Pulmonary edema with small pleural effusions -lasix Agitation - improved -Will order sitter -Josedon PRN - UTI -Continue Zosyn Bacteremia from mediport Tm 40.1 -Continue Omnicef -Repeat cultures - negative -Repeat Blood cultures x 3 r/o contamination-- were ordered 11/29 - pt has chronic drug use Multiple hospitalizations Acute on chronic renal failure Polysubstance abuse -Education Dehydration -IVF Coronary artery disease History of traumatic brain injury Anemia of uncertain etiology Hyperglycemia RICARDA COVINGTON DO Dec 03, 2019 04:34
[2019-12-03] MEDS: POTASSIUM CL 10MEQ/50ML IVPB 50 ML IV SCH (06:13)
[2019-12-03] MEDS: MAGNESIUM 1 GM/100 ML IVPB 100 ML IV SCH ×3 (06:13→08:33)
[2019-12-03] MEDS: KCL 20 MEQ TAB (K-DUR) PO SCH (06:13)
[2019-12-03] MEDS ORDERED: WATER (STERILE) FOR INJECTION 10 ML ONE (06:34)
[2019-12-03] MEDS: ZIPRASIDONE 20 MG INJ (GEODON) VIAL IM PRN (06:45)
--- NOTE | 2019-12-03 07:01 | NUR ---
PATIENT HAD BEEN AGITATED AND THE RN'S HAD JUST GOTTEN PATIENT CALMED DOWN SO RN REQUESTED FOR PATIENT TO NOT GET TX
[2019-12-03] MEDS: LEVETIRACETAM INJECTION 1,000 MG in NS (IVPB) 100 ML IV SCH ×2 (08:33→23:22)
[2019-12-03] MEDS: meTOprolol TARTRATE 50 MG (LOPRESSOR) TAB PO SCH ×2 (08:35→22:41)
[2019-12-03] MEDS: CEFDINIR 300 MG (OMNICEF) CAP PO SCH ×2 (08:35→22:41)
[2019-12-03] MEDS: ASPIRIN 81 MG CHEW (CHILDREN'S ASA) PO SCH (08:35)
[2019-12-03] MEDS: risperiDONE 1 MG (RisperDAL) TAB PO SCH ×2 (08:35→22:41)
[2019-12-03] MEDS: OXcarbazepine (TRILEPTAL) 300 MG TAB PO SCH ×2 (08:35→22:41)
[2019-12-03] MEDS: cloNIDine 0.1 MG (CATAPRES) TAB PO SCH ×2 (08:36→22:41)
[2019-12-03] MEDS: lisINopril 40 MG (PRINIVIL) TABLET PO SCH (08:36)
[2019-12-03] MEDS: PHENobarbital 97.2 MG (1-1/2 GRAIN) TABLET PO SCH (08:36)
[2019-12-03] MEDS: FUROSEMIDE 40 MG/4 ML INJ (LASIX) IVP SCH (08:36)
--- NOTE | 2019-12-03 08:57 | Cardiology Progress Note ---
Subjective Date Seen by Provider: Dec 03, 2019 Time Seen by Provider: 08:53 Subjective/Events-last exam Patient is lethargic and recently received Ziprasidone for behavioral issue according to the nurse. No family at bedside. No acute distress Patient denies the following: SOB, Chest pain, N/V, F/C Denies having questions or concerns at this time. Review of Systems Pulmonary: No Dyspnea, No Cough Cardiovascular: No: Chest Pain, Palpitations Gastrointestinal: No: Nausea, Vomiting, Abdominal Pain Focused Exam Lactate Level 11/30/19 21:50: Lactic Acid Level 0.88 Objective-Cardiology Exam Last Set of Vital Signs Vital Signs 12/02/19 12/03/19 12/03/19 12/03/19 06:38 10:00 10:50 11:00 Pulse 98 Resp 31 B/P (MAP) 126/80 (95) Pulse Ox 96 O2 Delivery High Flow N/C O2 Flow Rate 3.00 FiO2 30 Capillary Refill : Less Than 3 Seconds I&O Intake and Output 12/03/19 00:00 Intake Total 1770 ml Output Total 4700 ml Balance -2930 ml Intake Oral 1460 ml IV Total 310 ml Output Urine Total 4700 ml General: Alert, Cooperative, No Acute Distress Lungs: Clear to Auscultation, Normal Air Movement Heart: Regular Rate, Other (systolic murmur 4/6) Abdomen: Normal Bowel Sounds, Soft, No Tenderness, No Masses Extremities: No Edema, No Tenderness/Swelling Skin: No Rashes, No Breakdown Results Lab Laboratory Tests 12/03/19 03:30 A/P-Cardiology Admission Diagnosis Acute seizure disorder, Altered mental status, Acute sepsis, UTI sepsis, Bacteremia, Acute respiratory failure, Mild Coronary artery disease Acute renal failure, Drug abuse, Anemia Assessment/Plan Acute respiratory failure, on Vapotherm. Defer to Dr. Balderrama. Acute seizure disorder managed by the primary team. Patient transferred back to the ICU due to an acute seizure 12/01/2019. UTI sepsis possible bacteremia. On IV antibiotics. Normal white count. No stigmata for infective endocarditis. Blood cultures on 11/29/2019 are negative. Patient has previous moderate tricuspid regurgitation. I will discuss with the primary team. If the primary team has strong clinical suspicion for infective endocarditis, transesophageal echocardiogram will be recommended. However since the patient is on Vapotherm, she may not tolerate transesophageal echocardiogram and may require intubation. Continue broad-spectrum IV antibiotics. I have discussed at length with both Dr. Balderrama and Dr. Arriaga. Currently responding to medical therapy and improving from a sepsis point of view. May require repeat blood cultures as well. Patent is improving on current medical therapy, will continue to follow and re-address SURY with primary team if patient shows evidence of non-resolving infection or positive blood cultures with endocarditis specific organisms. 12/03/19: patient continues to improve on current medical therapy and has not had any changes that are concerning for endocarditis. Do not recommend SURY at this time, if patient has any changes will re-evaluate. Acute on chronic renal insufficiency, renal function are better, continue with monitoring closely. Improved with IV fluids. Mild CAD, stable with no issues., Nuclear stress test done on 07/08/2019 which showed normal myocardial perfusion imaging during rest and stress. Nonischemic cardiomyopathy, not in acute congestive heart failure. Continue outpatient medical therapy., Echocardiogram done on 08/16/2019 shows normal LV function with an EF of 55-65 percent. Grade 2 diastolic dysfunction. Mildly dilated left atrium. Moderate mitral regurgitation. Moderate tricuspid regurgitation. PA pressure of 45 mmHg. Moderate mitral regurgitation, no active issues. Moderate tricuspid regurgitation, clinically stable. Hypertension, Thank you for your consultation. Please call me if you have any questions Clinical Quality Measures DVT/VTE Risk/Contraindication: Risk Factor Score Per Nursin RFS Level Per Nursing on Admit: 2=Moderate Supervisory-Addendum Brief Verification & Attestation Participated in pt care: history, MDM, physical Personally performed: exam, history, MDM, supervision of care Care discussed with: Medical Student Procedures: n/a Results interpretation: Verified all documentation Verification and Attestation of Medical Student E/M Service A medical student performed and documented this service in my presence. I reviewed and verified all information documented by the medical student and made modifications to such information, when appropriate. I personally performed the physical exam and medical decision making. Paolo Jenkins, Dec 03, 2019,11:51 [facility] Dec 03, 2019 08:57 Paolo JENKINS MD Dec 03, 2019 11:51
--- NOTE | 2019-12-03 09:05 | ST Dysphagia Evaluation ---
Speech Evaluation-General Medical Diagnosis ARF, UTI, Abdominal pain Onset Date: Nov 28, 2019 Therapy Diagnosis Therapy Diagnosis: Oropharyngeal Dysphagia Precautions Precautions: Aspiration Referral Referring Physician: Dr. Balderrama Reason for Referral: Evaluation/Treatment Medical History Pertinent Medical History: Arthritis, COPD, CVA, DM, GERD, HTN, Renal Insufficiency, Smoking, TBI Reviewed History: Yes Social History Current Living Status: Alone Speech PLF/Current-Dysphagia Prior Level of Function Unknown Subjective Patient was alert, pleasant, and cooperative for all evaluation tasks. Patient reported that she was feeling good today. Patient sat upright in her bed for the duration of evaluation tasks. Cognitive Status Patient Orientation: Person, Place, Eyes Open Oral Motor Skills Dentition: Natural (Patient missing partial of the top row) Current Food Consistancy: Mechanical Soft Ability to Follow Directions: Good Patient was initially referred for altered mental status, however patient appears to be resolved in this area. Oral Expression Ability: Mild Impairment Voice Voice Phonatory-Based Quality: Normal Voice Pitch: Normal Voice Loudness: Normal Face Facial Symmetry: Symmetrical Oral-Facial Assessment Oral-Facial Dentition: Normal Labial Seal Description: Normal Smile: Normal Dysphagia Evaluation Consistencies Presented: Thin Liquid, Pureed Dietary Recommendations: Pureed Liquid Recommendations: Thin Swallowing Precautions: Alternate Liquids/Solids, Double Swallow, Decreased Bolus 1/2 Tsp, Liquids from Straw, Small Bites and Sips, Sitting Upright 90 Degrees, Sitting 90 Degrees 30 Post Intake Dysphagia Evaluation Summary Patient was admitted to the ICU s/p abdominal pain. Patient was presented thin liquid via 1/2 tsp spoon and straw and demonstrated no s/s of penetration or aspiration. Patient was then presented with pureed and mechanical soft consistency via 1/2 tsp spoon. Patient demonstrated a delayed cough with mechanical soft and no s/s of penetration or aspiration with puree. It is recommended that patient receive and DYSPHAGIA I diet with thin liquids. Additionally, patient will utilize compensatory strategies of alternating liquids and solids, small bites and sips, and sitting upright for all oral intake. Barriers to Learning Current medical status. Speech Short Term Goals Short Term Goals Short Term Goals 1. Patient will tolerate least restrictive diet without s/s of aspiration at 90%. 2. Patient will utilize compensatory strategies as trained at 90% with minimal cues. Speech Residential Goals Ict Support Engineer Goals Patient will maintain adequate nutrition/hydration via safe and effective swallow function. Speech-Plan Patient/Family Goals Patient/Family Goals: Patient reported wanting to feel better and return to previous living situation. Treatment Plan Speech Therapy Treatment Plan: Continue Plan of Care Treatment Duration: Dec 10, 2019 Frequency: 2 times per week Estimated Hrs Per Day: .25 hour per day Rehab Potential: Fair Barriers to Learning: Current medical status Pt/Family Agrees to Plan: Yes Safety Risks/Education Teaching Recipient: Patient Teaching Methods: Demonstration, Discussion Response to Teaching: Verbalize Understanding Education Topics Provided: Utilization of compensatory strategies during all oral intake Time Speech Therapy Time In: 08:15 Speech Therapy Time Out: 08:30 Total Billed Time: 15 Billed Treatment Time 1 ABI Dillard Dec 03, 2019 09:05
--- NOTE | 2019-12-03 10:06 | Physical Therapy Progress Note ---
Therapy Progress Note Hold physical therapy at this time per RN. Patient had a rough night and was combative, given medication to calm her down and patient is now sleeping. ANURAG GENTILE PT Dec 03, 2019 10:06
[2019-12-03] MEDS: LACTATED RINGERS 1,000 ML IV SCH (15:59)
--- NOTE | 2019-12-03 16:39 | Progress Note ---
Subjective Subjective/Events-last exam Patient not at baseline today, only responds to some questions. Review of Systems Wont answer questions appropriately Focused Exam Lactate Level 11/30/19 21:50: Lactic Acid Level 0.88 Objective Exam Last Set of Vital Signs Vital Signs Date Time Temp Pulse Resp B/P (MAP) Pulse Ox O2 Delivery O2 Flow Rate FiO2 12/03/19 16:00 98 Nasal Cannula 3.00 12/03/19 16:00 36.2 66 9 12/03/19 12:00 136/89 (105) 12/02/19 06:38 30 Capillary Refill : Less Than 3 Seconds I&O Intake and Output 12/03/19 00:00 Intake Total 1770 ml Output Total 4700 ml Balance -2930 ml Intake Oral 1460 ml IV Total 310 ml Output Urine Total 4700 ml General: Other (confused) Lungs: Clear to Auscultation, Normal Air Movement Heart: Regular Rate, Other (systolic murmur 4/6) Abdomen: Normal Bowel Sounds, Soft, No Tenderness, No Masses Extremities: No Edema, No Tenderness/Swelling Results/Procedures Lab Laboratory Tests 12/02/19 18:07: Glucometer 137H 12/03/19 00:50: Glucometer 99 12/03/19 03:30: White Blood Count 4.6, Red Blood Count 3.27L, Hemoglobin 8.9L, Hematocrit 28L, Mean Corpuscular Volume 86, Mean Corpuscular Hemoglobin 27, Mean Corpuscular Hemoglobin Concent 32, Red Cell Distribution Width 14.8H, Platelet Count 395, Mean Platelet Volume 9.7, Neutrophils (%) (Auto) 54, Lymphocytes (%) (Auto) 35, Monocytes (%) (Auto) 6, Eosinophils (%) (Auto) 5, Basophils (%) (Auto) 0, Neutrophils # (Auto) 2.5, Lymphocytes # (Auto) 1.6, Monocytes # (Auto) 0.3, Eosinophils # (Auto) 0.2, Basophils # (Auto) 0.0, Sodium Level 139, Potassium Level 4.7, Chloride Level 103, Carbon Dioxide Level 23, Anion Gap 13, Blood Urea Nitrogen 20H, Creatinine 1.13, Estimat Glomerular Filtration Rate 49, BUN/Creatinine Ratio 18, Glucose Level 97, Calcium Level 9.0, Phosphorus Level 4.3, Magnesium Level 1.6 12/03/19 11:23: Glucometer 146H Microbiology 11/30/19 Blood Culture - Preliminary, Resulted No growth 11/28/19 Urine Culture - Final, Complete Escherichia coli 11/28/19 Influenza Types A,B Antigen (JOHANA) - Final, Complete Assessment/Plan Assessment/Plan (1) Sepsis Status: Acute Assessment & Plan: 11/30: Continue to have fever, Blood Culture + for Strep, Urine growing Ecoli, Continue IVFs and IV antibiotics, Repeat blood cultures today 12/01: No fevers last 24hrs, continue IV antibiotics, repeated blood cultures pending 12/02: Blood culture NGTD, no fevers Qualifiers: Qualified Codes: A40.8 - Other streptococcal sepsis; R65.20 - Severe sepsis without septic shock; N17.9 - Acute kidney failure, unspecified (2) Bacteremia Status: Acute Assessment & Plan: - Strep, repeat blood cultures, Gen surgery consulted for possible port removal when patient stable, Echo shows valvular dz w/o vegetations 12/01: Discussed concern with Dr Balderrama about patient using port to inject Meth, Will likely get port removed 12/02: Echo normal and blood culture neg will leave port in place, patient denies using port for drug use (3) Altered mental status Status: Acute Assessment & Plan: - Drug abuse vs infection vs ativan use, Will continue to monitor 11/30: Patient not responding this AM, transferred to ICU status last night 12/02: Patient at baseline 12/03: Patient confused today, will answer some questions, Still requiring oxygen Qualifiers: Qualified Codes: R41.82 - Altered mental status, unspecified (4) Urinary tract infection Status: Acute Assessment & Plan: - Continue IV antibiotics 11/30: Ecoli growing, continue IV antibiotics, sensitive to Rocephin Qualifiers: Qualified Codes: N39.0 - Urinary tract infection, site not specified (5) Acute renal failure Status: Resolved Assessment & Plan: - hydration, repeat BMP in AM 11/30: Mild improvement, continue IVFs Qualifiers: Qualified Codes: N17.9 - Acute kidney failure, unspecified (6) Polysubstance abuse Status: Chronic (7) Seizure disorder Status: Chronic Assessment & Plan: 12/01: Patient reported to have multiple SZ today, Will continue to monitor, SZ precautions (8) Anemia Status: Chronic Assessment & Plan: - Chronic Dz, no signs of acute bleeding 11/30: iron studies in AM, Fe def in 2012 and patient has not had studies since then 12/01: Recommend IV iron infusion when infection is stable 12/02: Venofer today x 1 dose Qualifiers: Qualified Codes: D64.9 - Anemia, unspecified Clinical Quality Measures DVT/VTE Risk/Contraindication: Risk Factor Score Per Nursin RFS Level Per Nursing on Admit: 2=Moderate KWAKU GAONA MD Dec 03, 2019 16:39
[2019-12-03] MEDS: FAMOTIDINE 20 MG (PEPCID) TABLET PO SCH (22:41)
[2019-12-03] MEDS ORDERED: NS (IVPB) 0 ML ONE (23:07)
[2019-12-03] MEDS ORDERED: LEVETIRACETAM 500 MG/5 ML (KEPPRA) VIAL IV ONE (23:07)
[2019-12-04] VITALS: BP_SYST 139; BP_SYST 144; BP_DIAS 104; BP_DIAS 86
[2019-12-04] MEDS: inSUlin ASPART (NovoLOG) 1 UNIT/0.01 ML (CHARGE PER UNIT) SC SCH ×2 (02:17→05:27)
[2019-12-04] MEDS: RT-ALBUTEROL/IPRATROPIUM 3 ML (DUONEB) VIAL INH SCH ×2 (02:45→11:46)
[2019-12-04 03:05] LABS: BASOPHILS % (AUTO) 0 % (0-10); EOSINOPHILS # (AUTO) 0.2 10^3/uL (0.0-0.3); EOSINOPHILS % (AUTO) 3 % (0-10); HEMATOCRIT 32 % (35-52); HEMOGLOBIN 9.9 G/DL (11.5-16.0); LYMPHOCYTES # (AUTO) 1.4 X 10^3 (1.0-4.0); LYMPHOCYTES % (AUTO) 26 % (12-44); MEAN CORPUSCULAR HEMOGLOBIN 27 PG (25-34); MEAN CORPUSCULAR HGB CONC 31 G/DL (32-36); MEAN CORPUSCULAR VOLUME 88 FL (80-99); MEAN PLATELET VOLUME 9.3 FL (7.4-10.4); MONOCYTES # (AUTO) 0.2 X 10^3 (0.0-1.0); MONOCYTES % (AUTO) 4 % (0-12); NEUTROPHILS # (AUTO) 3.6 X 10^3 (1.8-7.8); NEUTROPHILS % (AUTO) 67 % (42-75); PLATELET COUNT 523 10^3/uL (130-400); RED CELL DISTRIBUTION WIDTH 15.2 % (10.0-14.5); WHITE BLOOD COUNT 5.3 10^3/uL (4.3-11.0)
[2019-12-04 03:25] LABS: CALCIUM 9.1 MG/DL (8.5-10.1); CREATININE SERUM 1.26 MG/DL (0.60-1.30); MAGNESIUM 2.1 MG/DL (1.6-2.4); PHOSPHORUS 4.3 MG/DL (2.3-4.7); POTASSIUM 4.9 MMOL/L (3.6-5.0)
[2019-12-04 04:00] VITALS: BP 144/104
[2019-12-04] MEDS ORDERED: WATER (STERILE) FOR INJECTION 10 ML ONE (05:05)
[2019-12-04] MEDS: ZIPRASIDONE 20 MG INJ (GEODON) VIAL IM PRN (05:19)
--- NOTE | 2019-12-04 06:17 | NUR ---
AT 06 This RN at bedside with patient who is c/o of back pain 03/22 Pamela, RN at bedside as well. 608 Pt started to seize, Pamela RN stayed at bedside with patient while this RN got Ativan 2mg ordered for seizures. Dr. Balderrama also notified. Patient seized from [id number]. [address] Balderrama at bedside to assess patient.
--- NOTE | 2019-12-04 07:28 | Pulmonary Progress Note ---
Subjective Time Seen by a Provider: 07:26 Subjective/Events-last exam Pt had another seizure this morning resolved with 2mg of ativan Sepsis Event Evaluation Height, Weight, BMI Height: 5'3.00" Weight: 155lbs. 8.0oz. 70.325016bd; 30.67 BMI Method:Stated Exam Exam Vital Signs Date Time Temp Pulse Resp B/P (MAP) Pulse Ox O2 Delivery O2 Flow Rate FiO2 12/04/19 03:43 98 Nasal Cannula 2.00 12/04/19 02:45 98 High Flow N/C 2.00 12/04/19 01:00 83 12/04/19 00:00 96 19 139/86 (103) 95 High Flow N/C 2.00 12/04/19 00:00 98 Nasal Cannula 2.00 12/04/19 00:00 36.6 12/04/19 00:00 92 21 144/104 (117) 95 High Flow N/C 2.00 12/03/19 22:23 95 High Flow N/C 2.00 12/03/19 20:00 98 19 146/90 (108) 97 High Flow N/C 2.00 12/03/19 20:00 98 Nasal Cannula 2.00 12/03/19 20:00 96 Nasal Cannula 2.00 12/03/19 19:54 36.2 12/03/19 19:25 99 High Flow N/C 3.00 12/03/19 19:00 94 12/03/19 16:00 98 Nasal Cannula 3.00 12/03/19 16:00 36.2 66 9 High Flow N/C 3.00 12/03/19 14:48 95 High Flow N/C 3.00 12/03/19 13:00 90 12/03/19 12:35 96 Nasal Cannula 3.00 12/03/19 12:30 96 Nasal Cannula 3.00 12/03/19 12:00 36.1 12/03/19 12:00 98 14 136/89 (105) High Flow N/C 3.00 12/03/19 11:00 98 126/80 (95) High Flow N/C 3.00 12/03/19 10:50 96 High Flow N/C 3.00 12/03/19 10:00 95 31 131/92 (105) High Flow N/C 3.00 12/03/19 09:00 91 19 175/108 (130) High Flow N/C 3.00 12/03/19 08:40 96 Nasal Cannula 3.00 12/03/19 08:40 96 Nasal Cannula 3.00 12/03/19 08:00 35.8 12/03/19 08:00 86 18 166/97 (120) Vapotherm 20.00 50.00 I & O 12/04/19 07:00 Intake Total 720 ml Output Total 3100 ml Balance -2380 ml Height & Weight Height: 5'3.00" Weight: 155lbs. 8.0oz. 70.645076gp; 30.67 BMI Method:Stated General Appearance: No Apparent Distress, Chronically ill HEENT: Other (Poor dentition) Neck: Limited Range of Motion Respiratory: Lungs Clear, Normal Breath Sounds, No Accessory Muscle Use, No Respiratory Distress Cardiovascular: Regular Rate, Rhythm, No Gallop, Systolic Murmur Capillary Refill: Less Than 3 Seconds Extremity: No Pedal Edema Neurologic/Psychiatric: Alert, Depressed Affect, Other (Unable to follow direction but moving all extremities) Skin: Normal Color, Warm/Dry Results Lab Laboratory Tests 12/03/19 03:30 12/04/19 02:57 Assessment/Plan Assessment/Plan Acute on chronic Seizures -Pt had another seizure this morning that lasted < 15 min resolved after 2mg of Ativan. Seizure prior to this was on . Pt has had mulitple seizures since admission -questionable pseudoseizures -Will transfer to [facility]. They have accepted pt. I spoke with hospitalist. -I have also discussed with Dr. Arriaga, Dr. Patel, medical staff, and family and they are agreeable to transfer for neurological support. -Monitor - Continue keppra IV. -Monitor close -Pt is a DNR/ DNI HTN - Clonidine, Lisinopril, and lopressor PO Pulmonary edema with small pleural effusions -lasix Agitation - improved -Will order sitter -Cha PRN - UTI Bacteremia from mediport Tm 40.1 -Continue Omnicef -Repeat cultures - negative -Repeat Blood cultures are negative - pt has chronic drug use with methamphetamine. Family states pt is not injecting into mediport. Multiple hospitalizations with chronic seizures Acute on chronic renal failure Polysubstance abuse -Education Dehydration -IVF Coronary artery disease History of traumatic brain injury Anemia of uncertain etiology Hyperglycemia Critical Care: Critically Ill Patient Time spent with patient (mins): 120 RICARDA COVINGTON DO Dec 04, 2019 07:28
[2019-12-04 08:00] VITALS: BP 130/83
--- NOTE | 2019-12-04 08:46 | Diagnostic Imaging Report ---
INDICATION: Renal failure with abdominal pain Single upright view of the chest is obtained. Since 12/02/19, there has been improvement in aeration of the lungs. There is air trapping bilaterally indicating emphysema. Left central venous catheter reaches the mid superior vena cava. There is an old right clavicle fracture. IMPRESSION: Air trapping indicating emphysema without evidence of acute abnormality or adverse change. Dictated by: Dictated on workstation # [id number]
[2019-12-04] MEDS: FUROSEMIDE 40 MG/4 ML INJ (LASIX) IVP SCH (08:55)
[2019-12-04] MEDS: CEFDINIR 300 MG (OMNICEF) CAP PO SCH (08:55)
[2019-12-04] MEDS: meTOprolol TARTRATE 50 MG (LOPRESSOR) TAB PO SCH (08:56)
[2019-12-04] MEDS: lisINopril 40 MG (PRINIVIL) TABLET PO SCH (08:56)
[2019-12-04] MEDS: PHENobarbital 97.2 MG (1-1/2 GRAIN) TABLET PO SCH (08:56)
[2019-12-04] MEDS: OXcarbazepine (TRILEPTAL) 300 MG TAB PO SCH (08:56)
[2019-12-04] MEDS: risperiDONE 1 MG (RisperDAL) TAB PO SCH (08:56)
[2019-12-04] MEDS: cloNIDine 0.1 MG (CATAPRES) TAB PO SCH (08:57)
[2019-12-04] MEDS: ASPIRIN 81 MG CHEW (CHILDREN'S ASA) PO SCH (08:57)
[2019-12-04] MEDS ORDERED: IRON SUCROSE 200 MG/10 ML (VENOFER) VIAL IV NR (09:00)
[2019-12-04] MEDS: LEVETIRACETAM INJECTION 1,000 MG in NS (IVPB) 100 ML IV SCH (09:13)
--- NOTE | 2019-12-04 10:21 | Discharge Summary ---
Discharge Summary Hospital Course Was the Problem List Reviewed?: Yes Hospital Course Date of Admission: Nov 28, 2019 at 13:35 Admission Diagnosis : [facility] Phys[facility] [place] Date of Discharge: 12/04/19 Discharge Diagnosis: Status epilepticus, ARF, UTI, Abdominal pain, CAD, PVD Hospital Course: Patient had a lengthy hospital course all of it remaining in the ICU. Status epilepticus was a continued issues as previous hospital stays have been ultimately resulting in transfer to [facility] for higher level of care and Neurology services. Labs and Pending Lab Test: Laboratory Tests 12/03/19 11:23: Glucometer 146H 12/03/19 17:52: Glucometer 117H 12/04/19 01:16: Glucometer 111H 12/04/19 02:57: White Blood Count 5.3, Red Blood Count 3.61L, Hemoglobin 9.9L, Hematocrit 32L, Mean Corpuscular Volume 88, Mean Corpuscular Hemoglobin 27, Mean Corpuscular Hemoglobin Concent 31L, Red Cell Distribution Width 15.2H, Platelet Count 523H, Mean Platelet Volume 9.3, Neutrophils (%) (Auto) 67, Lymphocytes (%) (Auto) 26, Monocytes (%) (Auto) 4, Eosinophils (%) (Auto) 3, Basophils (%) (Auto) 0, Neutrophils # (Auto) 3.6, Lymphocytes # (Auto) 1.4, Monocytes # (Auto) 0.2, Eosinophils # (Auto) 0.2, Basophils # (Auto) 0.0, Sodium Level 140, Potassium Level 4.9, Chloride Level 102, Carbon Dioxide Level 23, Anion Gap 15H, Blood Urea Nitrogen 21H, Creatinine 1.26, Estimat Glomerular Filtration Rate 43, BUN/Creatinine Ratio 17, Glucose Level 161H, Calcium Level 9.1, Phosphorus Level 4.3, Magnesium Level 2.1 Microbiology 11/30/19 Blood Culture - Preliminary, Resulted No growth 11/28/19 Urine Culture - Final, Complete Escherichia coli 11/28/19 Influenza Types A,B Antigen (JOHANA) - Final, Complete Home Meds Active Reported Levetiracetam 1,000 Mg Tablet 1,000 Mg PO BID Acid Assistant Baseball Coach (FAMOTIDINE) (Famotidine) 20 Mg Tablet 20 Mg PO BID Quetiapine Fumarate 25 Mg Tablet 12.5 Mg PO BID Coreg (Carvedilol) 25 Mg Tab 25 Mg PO BID Phenobarbital 64.8 Mg Tablet 129.6 Mg PO BID TAKES 2 (64.8MG) TABS TO EQUAL 129.6 Hydralazine HCl 100 Mg Tablet 100 Mg PO TID Loratadine 10 Mg Tablet 10 Mg PO DAILY Losartan Potassium 100 Mg Tablet 100 Mg PO DAILY Clonidine HCl 0.2 Mg Tablet 0.2 Mg PO BID Amlodipine Besylate 10 Mg Tablet 5 Mg PO BID Prazosin HCl 1 Mg Capsule 1 Mg PO HS Tylenol Extra Strength (Acetaminophen) 500 Mg Tablet 1,000 Mg PO Q6H PRN Oxcarbazepine 600 Mg Tablet 600 Mg PO BID Assessment/Pt Instructions Jack higher level of care Discharge Planning: <30 minutes discharge planning Discharge Instructions Discharge Diet: No Restrictions Activity as Tolerated: Yes Discharge Physical Examination Vital Signs Vital Signs Date Time Temp Pulse Resp B/P (MAP) Pulse Ox O2 Delivery O2 Flow Rate FiO2 12/04/19 08:00 92 18 130/83 (99) 93 High Flow N/C 2.00 12/04/19 00:00 36.6 12/02/19 06:38 30 General Appearance: No Apparent Distress, WD/WN, Chronically ill Respiratory: Lungs Clear Cardiovascular: Regular Rate, Rhythm Neurologic/Psychiatric: Alert, Oriented x3, Disoriented Allergies: Coded Allergies: nitrous oxide (Verified Allergy, Unknown, 06/08/07) Discharge Summary Date of Admission Nov 28, 2019 at 13:35 Date of Discharge Admission Diagnosis Mental status change Acute on chronic renal failure with atrophy of the right kidney Polysubstance abuse with drug screen showing meth Coronary artery disease History of traumatic brain injury Anemia of uncertain etiology Hyperglycemia Plan for aggressive IV fluid hydration follow the mental status; sepsis is a possibility since she is febrile with renal insufficiency however this may be just secondary to dehydration. Prognosis is guarded. Clinical Quality Measures DVT/VTE Risk/Contraindication: Risk Factor Score Per Nursin RFS Level Per Nursing on Admit: 2=Moderate RAJAN VALDOVINOS DO Dec 04, 2019 10:21
[2019-12-04 12:00] VITALS: BP 100/85
--- NOTE | 2019-12-04 13:53 | NUR ---
0800 this nurse and spoke with Eileen, patients sister and DPOA, updating her on patient. Eileen agrees to patient being transferred to [place] for a neurology consult. This nurse called Shift Captain at [phone] and then dispatch at [phone]. SBAR report called to Grisel SALDIVAR on TCU at [facility] where patient is being transferred for a neurology consult. Return phone number given to Grisel in case she has any questions, Grisel stated that she does not have any further questions att. VSS. Patient is awake and alert. Patient leaving ICU via stretcher with EMS at 1353.
== END 2019-12-04 13:53 | disposition short-term general hospital (02) | DRG 871 ==
LOC: EDUNIT# 10:26 → ER 10:27 → ICU 13:35 → 4TH 12-01 09:53 → ICU 12-01 15:35
PROVIDERS: ADMIT Internal Medicine; ATTEND Internal Medicine
DX: A40.8 Other streptococcal sepsis (principal); N17.9 Acute kidney failure, unspecified; N39.0 Urinary tract infection, site not specified; J96.00 Acute respiratory failure, unspecified whether with hypoxia or hypercapnia; E86.0 Dehydration; R41.82 Altered mental status, unspecified; J81.1 Chronic pulmonary edema; I42.9 Cardiomyopathy, unspecified; Z66 Do not resuscitate; G40.909 Epilepsy, unspecified, not intractable, without status epilepticus; F15.10 Other stimulant abuse, uncomplicated; I08.1 Rheumatic disorders of both mitral and tricuspid valves; I12.9 Hypertensive chronic kidney disease with stage 1 through stage 4 chronic kidney disease, or unspecified chronic kidney disease; N18.9 Chronic kidney disease, unspecified; N26.1 Atrophy of kidney (terminal); E11.65 Type 2 diabetes mellitus with hyperglycemia; I25.10 Atherosclerotic heart disease of native coronary artery without angina pectoris; I25.2 Old myocardial infarction; J44.9 Chronic obstructive pulmonary disease, unspecified; E11.51 Type 2 diabetes mellitus with diabetic peripheral angiopathy without gangrene; K21.9 Gastro-esophageal reflux disease without esophagitis; F41.9 Anxiety disorder, unspecified; F31.9 Bipolar disorder, unspecified; M54.9 Dorsalgia, unspecified; D63.8 Anemia in other chronic diseases classified elsewhere; M19.91 Primary osteoarthritis, unspecified site; B96.20 Unspecified Escherichia coli [E. coli] as the cause of diseases classified elsewhere; Z86.73 Personal history of transient ischemic attack (TIA), and cerebral infarction without residual deficits; Z87.820 Personal history of traumatic brain injury; Z87.891 Personal history of nicotine dependence
CPT/HCPCS: 36415; 51702; 70450; 71045; 71250; 74176; 80048; 80053; 80306; 81000; 82728; 82805; 82962; 83540; 83605; 83690; 83735; 83880; 84100; 85025; 85610; 85730; 86141; 87040; 87077; 87088; 87181; 87184; 87186; 87804; 93306; 94640; 94760; 96361; 96365; 96375; 96376

== ENCOUNTER 2020-01-08 01:15 | Emergency (ER) | payer MEDICAID ==
[~2020-01-08] VITALS: Ht 160 cm; Wt 76.0 kg
[~2020-01-08 01:15] MED LIST changes: +CRV25T PO; +FAMO20TA3 PO; +HYDR100T27 PO; +LEVE10006 PO; +PHEN64.8 PO; +QUET25TA73 PO
--- OUTSIDE RECORDS SUMMARY | 2020-01-08 01:27 | XMS REPORT | Encounter Summary ---
Author Author [facility] Organization [facility] Address Unknown Phone Unavailable Care Team Providers Care Sapphire Stylus Grinder Name Role Phone PauloSander Unavailable Anita Lopez MD Unavailable Joshua Lynch MD Unavailable Sherice Laurent DO PCP Armin Ventura MD Unavailable Flory Kim RN Unavailable Unavailable Zaynab Zhang MD Unavailable Unavailable Encounter Details Care Team Description Date Type Department 08/15/2019 [facility] [address] [address] Social History Date Tobacco Use Types Packs/Day [...] Travel Start No recent travel history available. documented as of this encounter Functional Status Date of Assessment Functional Status Response 09/21/2014 Does the patient have a hearing impairment: No 09/21/2014 Does the patient have a visual impairment: No 09/21/2014 Does the patient have impaired ambulation: No 09/21/2014 Does the patient have an activity of daily living No (ADL) impairment: 09/21/2014 Does the patient have an instrumental activity of No daily living (IADL) impairment: Date of Assessment Cognitive Status Response 09/21/2014 Does the patient have a cognitive impairment: No documented as of this encounter Medications at Time of Discharge Start Date End Date Medication Sig Dispensed Refills acetaminophen SR(+) Take 650 mg 0 (TYLENOL) 650 mg tablet by mouth every 6 hours as needed. albuterol (VENTOLIN HFA, Inhale 2 0 PROAIR HFA) 90 Puffs by mcg/actuation inhaler mouth every 4 hours as needed. aspirin EC 81 mg tablet Take 81 mg by 0 mouth daily. 09/21/2014 bisacodyl (DULCOLAX) 10 Insert or 15 0 mg rectal suppository Apply 1 Suppository Suppository to rectal area as directed daily as needed. 09/21/2014 cyclobenzaprine Take 1 Tab by 60 Tab 1 (FLEXERIL) 10 mg tablet mouth twice daily (at 10AM and 10PM). 09/21/2014 ferrous sulfate 325 mg Take 1 Tab by 30 Tab 1 (65 mg iron) tablet mouth at bedtime daily. fluticasone-salmeterol Inhale 1 Puff 0 (ADVAIR DISKUS) 100-50 by mouth mcg inhalation disk every 12 hours. 09/21/2014 gabapentin (NEURONTIN) Take 1 Cap by 270 Cap 3 300 mg capsule mouth three times daily. 09/21/2014 lidocaine (LIDODERM) 5 % Apply to 30 Patch 1 topical patch painful area as needed LORazepam injection Administer 10 0 (ATIVAN) 2 mg/mL syrg mg through vein every 1 hour as needed. LORazepam injection Administer 5 0 (ATIVAN) 2 mg/mL syrg mg through vein every 1 hour as needed. metoclopramide HCl Take 10 mg by 0 (REGLAN) 1 mg/mL oral mouth twice solution daily. metoprolol XL (TOPROL XL) Take 50 mg by 0 50 mg tablet mouth daily. 09/21/2014 morphine IR (MSIR) 15 mg Take 0.5 Tabs 120 Tab 2 tablet by mouth every 3 hours as needed for Pain Earliest Fill Date: 09/20/14 09/21/2014 morphine SR (MS CONTIN; Take 1 Tab by 60 Tab 3 ORAMORPH SR) 15 mg tablet mouth twice daily Earliest Fill Date: 09/20/[address](+) Take 20 mg by 0 (PRILOSEC) 20 mg capsule mouth daily. PHENobarbital 97.2 mg Take 97.2 mg 0 tablet by mouth at bedtime daily. 09/21/2014 polyethylene glycol 3350 Take 17 g by 1 Bottle 1 (GLYCOLAX; MIRALAX) 17 mouth daily gram/dose powder as needed (constipation ). 06/22/2014 senna/docusate Take 1 Tab by 60 Tab 0 (SENOKOT-S) 8.6/50 mg mouth twice tablet daily. 09/21/2014 traMADol (ULTRAM) 50 mg Take 0.5 Tabs 30 Tab 1 tablet by mouth every 8 hours as needed for Pain. 11/11/2014 trimethoprim-sulfamethoxa Take 1 Tab by 60 Tab 3 zole (BACTRIM DS) 160-800 mouth twice mg tablet daily. documented as of this encounter Plan of Treatment Not on filedocumented as of this encounter Procedures Comments Procedure Name Priority Date/Time Associated Diag nosis CT ABD/PEL EXTERNAL Routine 08/15/2019 IMAGING 12:00 AM CDT documented in this encounter Results * CT ABD/PEL EXTERNAL IMAGING (08/15/2019 12:00 AM CDT) Specimen Narrative Performed At This order has been auto finalized and does not contain a result. documented in this encounter Visit Diagnoses Not on filedocumented in this encounter Additional Health Concerns Resolved Time Infection Noted Time MRSA 06/14/2014 9:09 AM CDT documented as of this encounter
--- OUTSIDE RECORDS SUMMARY | 2020-01-08 01:27 | XMS REPORT | Encounter Summary ---
Author Author [facility] Organization [facility] Address Unknown Phone Unavailable Care Team Providers Care Client Relations Associate Name Role Phone PauloSander Unavailable Anita Lopez MD Unavailable Joshua Lynch MD Unavailable Sherice Laurent DO PCP Armin Ventura MD Unavailable Flory Kim RN Unavailable Unavailable Zaynab Zhang MD Unavailable Unavailable Encounter Details Care Team Description Date Type Department 08/12/2019 [facility] [address] [address] Social History Date Tobacco Use [...] Name Priority Date/Time Associated Diag nosis CT HEAD EXTERNAL IMAGING Routine 08/12/2019 12:05 AM CDT documented in this encounter Results * CT HEAD EXTERNAL IMAGING (08/12/2019 12:05 AM CDT) Specimen Narrative Performed At This order has been auto finalized and does not contain a result. documented in this encounter Visit Diagnoses Not on filedocumented in this encounter Additional Health Concerns Resolved Time Infection Noted Time MRSA 06/14/2014 9:09 AM CDT documented as of this encounter
--- OUTSIDE RECORDS SUMMARY | 2020-01-08 01:27 | XMS REPORT | Encounter Summary ---
Author Author [facility] Organization [facility] Address Unknown Phone Unavailable Care Team Providers Care Gas Plumber Name Role Phone PauloSander Unavailable Anita Lopez MD Unavailable Joshua Lynch MD Unavailable Sherice Laurent DO PCP Armin Ventura MD Unavailable Flory Kim RN Unavailable Unavailable Zaynab Zhang MD Unavailable Unavailable Encounter Details Care Team Description Date Type Department 08/12/2019 [facility] [address] [address] Social History Date Tobacco Use [...] Name Priority Date/Time Associated Diag nosis CT CHEST EXTERNAL IMAGING Routine 08/12/2019 12:00 AM CDT documented in this encounter Results * CT CHEST EXTERNAL IMAGING (08/12/2019 12:00 AM CDT) Specimen Narrative Performed At This order has been auto finalized and does not contain a result. documented in this encounter Visit Diagnoses Not on filedocumented in this encounter Additional Health Concerns Resolved Time Infection Noted Time MRSA 06/14/2014 9:09 AM CDT documented as of this encounter
--- OUTSIDE RECORDS SUMMARY | 2020-01-08 01:27 | XMS REPORT | Encounter Summary ---
Author Author [facility] Organization [facility] Address Unknown Phone Unavailable Care Team Providers Care Hourly Shift Manager Name Role Phone PauloSander Unavailable Anita Lopez MD Unavailable Joshua Lynch MD Unavailable Sherice Laurent DO PCP Armin Ventura MD Unavailable Flory Kim RN Unavailable Unavailable Zaynab Zhang MD Unavailable Unavailable Encounter Details Care Team Description Date Type Department 08/15/2019 [facility] [address] [address] Social History Date Tobacco Use [...] Name Priority Date/Time Associated Diag nosis CT CHEST/ABD/PEL EXTERNAL Routine 08/15/2019 IMAGING 12:05 AM CDT documented in this encounter Results * CT CHEST/ABD/PEL EXTERNAL IMAGING (08/15/2019 12:05 AM CDT) Specimen Narrative Performed At This order has been auto finalized and does not contain a result. documented in this encounter Visit Diagnoses Not on filedocumented in this encounter Additional Health Concerns Resolved Time Infection Noted Time MRSA 06/14/2014 9:09 AM CDT documented as of this encounter
--- OUTSIDE RECORDS SUMMARY | 2020-01-08 01:27 | XMS REPORT | Encounter Summary ---
Author Author [facility] Organization [facility] Address Unknown Phone Unavailable Care Team Providers Care Telecommunications Field Technician Name Role Phone PauloSander Unavailable Anita Lopez MD Unavailable Joshua Lynch MD Unavailable Sherice Laurent DO PCP Armin Ventura MD Unavailable Flory Kim RN Unavailable Unavailable Zaynab Zhang MD Unavailable Unavailable Encounter Details Care Team Description Date Type Department 09/16/2019 [facility] [address] [address] Social History Date Tobacco Use [...] Procedure Name Priority Date/Time Associated Diag nosis MRI HEAD EXTERNAL IMAGING Routine 09/16/2019 12:00 AM SHELL SHOP SUPERVISOR documented in this encounter Results * MRI HEAD EXTERNAL IMAGING (09/16/2019 12:00 AM SHELL SHOP SUPERVISOR) Specimen Narrative Performed At This order has been auto finalized and does not contain a result. documented in this encounter Visit Diagnoses Not on filedocumented in this encounter Additional Health Concerns Resolved Time Infection Noted Time MRSA 06/14/2014 9:09 AM CDT documented as of this encounter
--- OUTSIDE RECORDS SUMMARY | 2020-01-08 01:27 | XMS REPORT | Clinical Summary ---
Author Author [facility] Organization [facility] Address Unknown Phone Unavailable Care Team Providers Care Stone Setter Metal Optical Frames Name Role Phone PauloAngelaSandervika LANGE Unavailable Anita Lopez MD Unavailable Joshua Lynch MD Unavailable Sherice Laurent DO PCP Armin Ventura MD Unavailable Flory Kim RN Unavailable Unavailable Zaynab Zhang MD Unavailable Unavailable Source Comments Some departments are not documenting in the electronic medical record. If you d o not see the information that you expected, contact Release of Information in [facility] [employer] Information Management department at [phone] for further assistan ce in locating additional records.[facility] Allergies Comments Active Allergy Reactions Severity Noted [...] Comments Vital Sign 110/80 11/11/2014 1:07 PM PAINT DIPPER Blood Pressure 72 11/11/2014 1:07 PM PAINT DIPPER Pulse 36.5 C (97.7 F) 11/11/2014 1:07 PM PAINT DIPPER Temperature 16 11/11/2014 1:07 PM PAINT DIPPER Respiratory Rate 94% 09/21/2014 7:45 AM PAINT DIPPER Oxygen Saturation - - Inhaled Oxygen Concentration 82.1 kg (181 lb) 11/11/2014 1:07 PM PAINT DIPPER Weight 160 cm (5' 3") 11/11/2014 1:07 PM PAINT DIPPER Height 32.06 11/11/2014 1:07 PM PAINT DIPPER Body Mass Index Plan of Treatment Health Maintenance Due Date Last Done Comments DTAP/TDAP VACCINES (1 - 1971 Tdap) PHYSICAL (COMPREHENSIVE) 1978 EXAM CERVICAL CANCER SCREENING 1981 BREAST CANCER SCREENING 2000 COLORECTAL CANCER 2010 SCREENING SHINGLES RECOMBINANT 2010 VACCINE (1 of 2) INFLUENZA VACCINE 05/13/2019 07/12/2014 HEPATITIS C SCREENING Completed 06/11/2014, 06/11/2014, 06/10/2014 HIV SCREENING Completed 06/11/2014 Results Not on filefrom Last 3 Months Additional Health Concerns Resolved Time Infection Noted Time MRSA 06/14/2014 9:09 AM CDT Advance Directives Patient Machinist Bench Explanation Type Date Recorded Advance 06/11/2014 9:42 [...]
--- OUTSIDE RECORDS SUMMARY | 2020-01-08 01:31 | XMS REPORT ---
Author Author Michelle LANGE Organization [facility] Address [address] [place] [address] Care Team Providers Care Supervisor Treating And Pumping Name Role Phone TRACEE LANGE Unavailable PROBLEMS Type Condition ICD9-CM Code UXU30-ZC Code Onset Dates Condition S tatus SNOMED Code Problem Lumbar neuritis M54.16 Active 1281 16580 Problem Thoracic neuritis M54.14 Active 58 826804 Problem GERD (gastroesophageal reflux disease) K21.9 Active 750668045 Problem Intracranial injury, without loss of consciousness, subsequent encounter S06.9X0D Active 030666458 Problem Epileptic seizure, generalized G40.309 Active 77611269 Problem Observed sleep apnea G47.30 Active 96601473 Problem Cardiomyopathy I42.9 Active 95566 001 Problem Panlobular emphysema J43.1 Active 6063014 Problem Hypertension, benign I10 Active 16551463 Problem Ventricular arrhythmia I49.9 Active 95878085 Problem Mood disorder F39 Active 372635 05 Problem Seasonal allergic rhinitis, unspecified trigger J3 0.2 Active 956162473 Problem Excessive daytime sleepiness G47.19 A ctive [id number] ALLERGIES No Information ENCOUNTERS Encounter Location Date Diagnosis [place] [id number] [address] Dec, [facility] [address] [address] Nov, [facility] [address] [address] Oct, Cardiomyopathy I42.9 ; Hypertension, wilian ign I10 and Mood disorder F39 [facility] [address] [address] Oct, Epileptic seizure, generalized G40.309 [facility] [address] [address] Oct, Panlobular emphysema J43.1 [facility] [address] [address] Oct, [facility] [address] [address] Oct, Panlobular emphysema J43.1 [facility] [address] [address] Sep, Unspecified convulsions R56.9 [facility] [address] [address] Aug, Seizures R56.9 [facility] [address] [address] Aug, [facility] [address] [address] Aug, Hypertension, benign I10 [facility] [address] [address] Aug, [facility] [address] [address] Aug, [facility] [address] [address] Aug, [facility] [address] [address] Aug, Panlobular emphysema J43.1 ; Observed sl eep apnea G47.30 and Excessive daytime sleepiness G47.19 [facility] [address] [address] Aug, [facility] [address] [address] Jun, Seizures R56.9 [facility] [address] [address] Jun, [facility] [address] [address] Jun, [facility] [address] [address] Jun, [facility] [address] [address] May, Acute right-sided low back pain without sciatica M54.5 [facility] [address] [address] May, Acute right-sided low back pain without sciatica M54.5 [facility] [address] [address] Apr, High risk medication use Z79.899 ; Acute septic pulmonary embolism without acute cor pulmonale I26.90 and Cellulitis of leg without foot L03.119 [place] [address] [address] Jan, [place] [address] [address] Jan, Seizures R56.9 [facility] [address] [address] Dec, Seizures R56.9 [facility] [address] [facility] [id number] [address] [place] [address] Nov, Dysuria R30.0 and Urinary tr act infection without hematuria, site unspecified N39.0 [facility] [address] [address] Nov, [facility] [address] [address] Nov, Seizures R56.9 [facility] [address] [address] Sep, Seizures R56.9 [facility] [address] [address] Sep, Seasonal allergic rhinitis, unspecified trigger J30.2 [facility] [address] [address] Aug, Neck pain on left side M54.2 ; Mood diso rder F39 and GERD (gastroesophageal reflux disease) K21.9 [facility] [address] [address] Aug, Seizures R56.9 [facility] [address] [address] Aug, Mood disorder F39 ; Neck pain on left si de M54.2 and Hypertension, benign I10 [facility] [address] [address] Aug, [facility] [address] [address] Aug, [facility] [address] [address] Jul, [facility] [address] [address] Jul, Hypertension, benign I10 [facility] [address] [address] Jul, [facility] [address] [address] Jul, Thoracic neuritis M54.14 ; Pain of left leg M79.605 and Pain in right leg M79.604 [facility] [address] [address] Jun, Seizures R56.9 [facility] [address] [address] May, [facility] [address] [address] May, [facility] [address] [address] May, [facility] [address] [address] May, Seizures R56.9 [place] [address] [address] May, [place] [address] [address] May, Delirium R41.0 [place] [address] [address] Apr, [place] [address] [address] February, Ventricular arrhythmia I49.9 [place] [address] [address] February, [place] [address] [address] Dec, Thoracic neuritis M54.14 ; Lumbar neurit is M54.16 and Epileptic seizure, generalized G40.309 [place] [address] [address] Sep, Epileptic seizure, generalized G40.309 a nd Lumbar neuritis M54.16 [place] [address] [address] Aug, Thoracic neuritis M54.14 and Lumbar neur itis M54.16 [place] [address] [address] Jun, [place] [address] [address] Jun, Abscess of leg, left L02.416 [place] [address] [address] May, Lumbar neuritis M54.16 ; Thoracic neurit is M54.14 ; Intracranial injury, without loss of consciousness, subsequent encounter S06.9X0D and Cardiomyopathy I42.9 [place] [address] [address] Apr, Lumbar neuritis M54.16 [place] [address] [address] Apr, [facility] [address] [address] Apr, Elevated liver enzymes R74.8 and Renal i nsufficiency N28.9 [facility] [address] [address] Apr, Lumbar neuritis M54.16 ; Thoracic neurit is M54.14 ; Hypertension, benign I10 ; Cardiomyopathy I42.9 and Epileptic seizure, generalized G40.309 [place] [address] [address] Mar, [place] [address] [address] February, [place] [address] [address] February, Lumbar neuritis M54.16 ; Thoracic neurit is M54.14 ; Hypertension, benign I10 ; Cardiomyopathy I42.9 and Epileptic seizure, generalized G40.309 [place] [address] [address] Dec, [place] [address] [address] Sep, Epigastric mass R19.06 [place] [address] [address] Sep, Epigastric mass R19.06 [place] [address] [address] Sep, [place] [address] [address] Sep, Epigastric mass R19.06 [place] [address] [address] Sep, Epigastric mass R19.06 and Lung mass R91 .8 [facility] [address] [facility] [id number] [address] [place] [address] Jul, Shortness of breath R06.02 ; Dysuria R30.0 and Acute bronchitis, unspecified organism J20.9 [facility] [address] [address] Jul, [facility] [address] [address] 15 Jun, 2016 Seizures R56.9 ; Thoracic neuritis M54.1 4 ; Lumbar neuritis M54.16 and GERD (gastroesophageal reflux disease) K21.9 [facility] [address] [facility] [id number] [address] [place] [address] Jan, [facility] [address] [address] Sep, [place] [address] [address] Sep, Intracranial injury, without loss of con sciousness, subsequent encounter S06.9X0D ; Cardiomyopathy I42.9 ; GERD (gastroesophageal reflux disease) K21.9 ; Hypertension, benign I10 ; Thoracic neuritis M54.14 and Lumbar neuritis M54.16 [place] [address] [address] Mar, [place] [address] [address] Mar, Coronary atherosclerosis of unspecified type of vessel, cowlitz or graft 414.00 ; Unspecified essential hypertension 401.9 ; Thoracic or lumbosacral neuritis or radiculitis, unspecified 724.4 and Other convulsions 780.39 [facility] [address] [address] Jan, [facility] [address] [address] Jan, [place] [address] [address] Nov, [facility] [address] [address] Nov, [facility] [address] [id number] [place] [address] Nov, 2014 [facility] [address] [id number] [place] [address] Nov, 2014 [facility] [address] [id number] [place] [address] Nov, 2014 [facility] [address] [id number] [place] [address] Nov, 2014 [facility] [address] [id number] [place] [address] Nov, 2014 [facility] [address] [id number] [place] [address] Nov, 2014 [facility] [address] [id number] [place] [address] Nov, 2014 [facility] [address] [id number] [place] [address] Nov, 2014 [facility] [address] [id number] [place] [address] Sep, [facility] [address] [place] [id number] [place] [address] Sep, [facility] [address] [id number] [place] [address] Aug, [facility] [address] [id number] [place] [address] Aug, [facility] [address] [id number] [place] [address] Aug, [facility] [address] [id number] [place] [address] Aug, [facility] [address] [id number] [place] [address] Jul, [facility] [address] [place] [id number] [place] [address] Jul, [facility] [address] [id number] [facility] [address] Jul, [facility] [address] [id number] [place] [address] Jul, [facility] [address] [facility] [id number] [place] [address] Jun, [facility] [address] [id number] [place] [address] Jun, [facility] [address] [facility] [id number] [place] [address] Jun, [facility] [address] [facility] [id number] [place] [address] May, [facility] [address] [id number] [place] [address] May, [facility] [address] [id number] [place] [address] May, [facility] [address] [id number] [place] [address] May, [facility] [address] [id number] [place] [address] May, [facility] [address] [id number] [place] [address] May, [facility] [address] [id number] [place] [address] May, [facility] [address] [id number] [place] [address] May, [facility] [address] [facility] [id number] [place] [address] February, [facility] [address] [id number] [place] [address] February, [facility] [address] [id number] [place] [address] Jan, [facility] [address] [id number] [place] [address] Jan, [facility] [address] [id number] [place] [address] Jan, [facility] [address] [id number] [place] [address] Jan, [facility] [address] [id number] [place] [address] Nov, [facility] [address] [id number] [place] [address] Nov, [facility] [address] [id number] [place] [address] Nov, [facility] [address] [id number] [place] [address] Nov, [facility] [address] [id number] [place] [address] Sep, [facility] [address] [id number] [place] [address] 18 Sep, 2013 [facility] [address] [id number] [place] [address] Sep, [facility] [address] [id number] [place] [address] Sep, [facility] [address] [id number] [place] [address] 06 Sep, 2013 [facility] [address] [place] [id number] [place] [address] 06 Sep, 2013 [facility] [address] [id number] [place] [address] Jul, [facility] [address] [id number] [place] [address] Jul, [facility] [address] [id number] [place] [address] 30 Jun, 2013 [facility] [address] [id number] [place] [address] 23 Jun, 2013 [facility] [address] [id number] [place] [address] Jun, [facility] [address] [facility] [id number] [place] [address] May, [facility] [address] [facility] [id number] May, [facility] [address] [id number] [facility] [place] [address] May, [facility] [address] [id number] [place] [address] May, [facility] [address] [facility] [id number] [facility] [place] [address] May, [facility] [address] [id number] [place] [address] May, [facility] [address] [id number] [place] [address] May, [facility] [address] [id number] [place] [address] Apr, [facility] [address] [facility] [id number] [place] [address] Apr, [facility] [address] [id number] [place] [address] Apr, [facility] [address] [id number] [place] [address] Apr, [facility] [address] [id number] [place] [address] Mar, [facility] [address] [facility] [id number] [place] [address] February, [facility] [address] [id number] [place] [address] Jan, [facility] [address] [id number] [place] [address] Dec, [facility] [address] [id number] [place] [address] Dec, [facility] [address] [id number] [place] [address] Dec, [facility] [address] [id number] [place] [address] Nov, [facility] [address] [id number] [place] [address] Nov, [facility] [address] [id number] [place] [address] Nov, [facility] [address] [id number] [place] [address] Oct, [facility] [address] [id number] [place] [address] Oct, [facility] [address] [id number] [place] [address] Sep, [facility] [address] [id number] [place] [address] Sep, [facility] [address] [id number] [place] [address] Sep, [facility] [address] [id number] [place] [address] Sep, [facility] [address] [id number] [place] [address] Sep, [facility] [address] [id number] [place] [address] Sep, [facility] [address] [id number] [place] [address] Aug, [facility] [address] [id number] [place] [address] Aug, [facility] [address] [place] [id number] [place] [address] Aug, [facility] [address] [id number] [place] [address] Aug, [facility] [address] [place] [id number] [place] [address] Aug, [facility] [address] [id number] [place] [address] Aug, [facility] [address] [id number] [place] [address] Aug, [facility] [address] [id number] [place] [address] Aug, [facility] [address] [id number] [place] [address] Aug, [facility] [address] [id number] [place] [address] Aug, [facility] [address] [id number] [place] [address] Jul, [facility] [address] [id number] [place] [address] Jul, [facility] [address] [place] [id number] [place] [address] Jul, [facility] [address] [id number] [place] [address] Jul, [facility] [address] [id number] [place] [address] Jul, [facility] [address] [id number] [place] [address] Jul, [facility] [address] [id number] [place] [address] Jul, [facility] [address] [id number] [place] [address] Jul, [facility] [address] [id number] [place] [address] 18 Jul, 2012 [facility] [address] [id number] [place] [address] Jul, [facility] [address] [id number] [place] [address] Jul, [facility] [address] [id number] [place] [address] Jul, [facility] [address] [facility] [id number] [place] [address] Jul, [facility] [address] [facility] [id number] [place] [address] Jul, [facility] [address] [id number] [place] [address] Jul, [facility] [address] [id number] [place] [address] Jun, [facility] [address] [facility] [id number] [facility] [address] Jun, [facility] [address] [id number] [place] [address] Jun, [facility] [address] [id number] [place] [address] May, [facility] [address] [id number] [place] [address] May, [facility] [address] [id number] [place] [address] Mar, [facility] [address] [id number] [place] [address] Mar, [facility] [address] [id number] [place] [address] February, [facility] [address] [id number] [place] [address] February, [facility] [address] [id number] [place] [address] Nov, [facility] [address] [id number] [place] [address] Oct, [facility] [address] [id number] [place] [address] Oct, [facility] [address] [id number] [place] [address] Oct, [facility] [id number] [place] [address] Aug, [facility] [id number] [place] [address] Jul, [facility] [id number] [place] [address] Sep, [facility] [id number] [place] [address] Aug, [facility] [id number] [place] [address] Jul, [facility] [address] [address] Apr, [facility] [address] [address] February, [facility] [id number] [place] [address] Sep, [facility] [id number] [place] [address] Sep, [facility] [id number] [place] [address] Sep, [facility] [id number] [place] [address] Apr, [facility] [id number] [place] [address] Mar, [facility] [id number] [place] [address] February, [facility] [id number] [place] [address] Jan, [facility] [address] [address] Jul, IMMUNIZATIONS No Known Immunizations SOCIAL HISTORY Never Assessed REASON FOR VISIT PLAN OF CARE VITAL SIGNS MEDICATIONS Unknown Medications RESULTS No Results PROCEDURES No Known procedures INSTRUCTIONS MEDICATIONS ADMINISTERED No Known Medications MEDICAL (GENERAL) HISTORY Type Description Date Medical History Post-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/2013-ejection frac tion 30 % Medical History Chronic Obstructive pulmonary disease Medical History Hernia-repaired Medical History Hyperactive bladder Medical History [id number] 03/2011-6.1 % Medical History Epilepsy and recurrent seizures Medical History Hx of substance abuse Medical History Hx of Hep C-negative viral load 07/2012 Medical History Hemoglobin A1c 07/10/2012-5.8% Medical History Coronary angiography was performed 10/01 11-Normal Surgical History Otolaryngologic surgery tympanostomy tub es Surgical History Tonsillectomy adenoids Surgical History Partial colectomy Surgical History Genito-urinary tract surgery bladder suspension, ureteral stent placement and removal Surgical History Hysterectomy Surgical History Hospitalization History Admitted for [facility]; re-admitt ed for pulmonary edema resulting in respiratory failure which improved with diuresis 03/2011 Hospitalization History Chest Pain- diagnosed with c hest wall pain and GERD (Heart Cath negative) 10/10/2011 Hospitalization History Defibulator placement 02/2018 Hospitalization History [facility] - UTI 04/2018-05/14 018 Hospitalization History [facility] for dehydration 08/17/19
--- OUTSIDE RECORDS SUMMARY | 2020-01-08 01:31 | XMS REPORT ---
Author Author Michelle LANGE Organization [facility] Address [address] [place] [address] Care Team Providers Care Pusher Operator Name Role Phone TRACEE LANGE Unavailable PROBLEMS Type Condition ICD9-CM Code [id number] Code Onset Dates Condition S tatus SNOMED Code Problem Lumbar neuritis M54.16 Active 1281 64062 Problem Thoracic neuritis M54.14 Active 58 586833 Problem Hypertension, benign I10 Active 74292927 Problem Cardiomyopathy I42.9 Active 42721 001 Problem Epileptic seizure, generalized G40.309 Active 19738753 Problem Excessive daytime sleepiness G47.19 A ctive [id number] Problem GERD (gastroesophageal reflux disease) K21.9 Active 828679744 Problem Panlobular emphysema J43.1 Active 7624859 Problem Intracranial injury, without loss of consciousness, subsequent encounter S06.9X0D Active 524515349 Problem Ventricular arrhythmia I49.9 Active 17122077 Problem Mood disorder F39 Active 819001 05 Problem Seasonal allergic rhinitis, unspecified trigger J3 0.2 Active 731716778 Problem Observed sleep apnea G47.30 Active 88614407 ALLERGIES No Information ENCOUNTERS Encounter Location Date Diagnosis [place] [address] [address] Dec, [facility] [address] [address] Nov, [facility] [address] [address] Oct, Cardiomyopathy I42.9 ; Hypertension, wilian ign I10 and Mood disorder F39 [facility] [address] [address] Oct, Epileptic seizure, generalized G40.309 [facility] [address] [address] Oct, Panlobular emphysema J43.1 [facility] [address] [address] Oct, [facility] [address] [address] Oct, Panlobular emphysema J43.1 [facility] [address] [address] Sep, Unspecified convulsions R56.9 [facility] [address] [address] Aug, Seizures R56.9 [facility] [address] [address] Aug, [facility] [address] [address] Aug, Hypertension, benign I10 [facility] [address] [address] Aug, [facility] [address] [address] Aug, [facility] [address] [address] Aug, [facility] [address] [address] Aug, Panlobular emphysema J43.1 ; Observed sl eep apnea G47.30 and Excessive daytime sleepiness G47.19 [facility] [address] [address] Aug, [facility] [address] [address] Jun, Seizures R56.9 [facility] [address] [address] Jun, [facility] [address] [address] Jun, [facility] [address] [address] Jun, [facility] [address] [address] May, Acute right-sided low back pain without sciatica M54.5 [facility] [address] [address] May, Acute right-sided low back pain without sciatica M54.5 [facility] [address] [address] Apr, High risk medication use Z79.899 ; Acute septic pulmonary embolism without acute cor pulmonale I26.90 and Cellulitis of leg without foot L03.119 [place] [address] [address] Jan, [place] [address] [address] Jan, Seizures R56.9 [facility] [address] [address] Dec, Seizures R56.9 [facility] [address] [facility] [id number] [address] [place] [address] Nov, Dysuria R30.0 and Urinary tr act infection without hematuria, site unspecified N39.0 [facility] [address] [address] Nov, [facility] [address] [address] Nov, Seizures R56.9 [facility] [address] [address] Sep, Seizures R56.9 [facility] [address] [address] Sep, Seasonal allergic rhinitis, unspecified trigger J30.2 [facility] [address] [address] Aug, Neck pain on left side M54.2 ; Mood diso rder F39 and GERD (gastroesophageal reflux disease) K21.9 [facility] [address] [address] Aug, Seizures R56.9 [facility] [address] [address] Aug, Mood disorder F39 ; Neck pain on left si de M54.2 and Hypertension, benign I10 [facility] [address] [address] Aug, [facility] [address] [address] Aug, [facility] [address] [address] Jul, [facility] [address] [address] Jul, Hypertension, benign I10 [facility] [address] [address] Jul, [facility] [address] [address] Jul, Thoracic neuritis M54.14 ; Pain of left leg M79.605 and Pain in right leg M79.604 [facility] [address] [address] Jun, Seizures R56.9 [facility] [address] [address] May, [facility] [address] [address] May, [facility] [address] [address] May, [facility] [address] [address] May, Seizures R56.9 [place] [address] [address] May, [place] [address] [address] May, Delirium R41.0 [place] [address] [address] Apr, [place] [address] [address] February, Ventricular arrhythmia I49.9 [place] [address] [address] February, [place] [address] [address] Dec, Thoracic neuritis M54.14 ; Lumbar neurit is M54.16 and Epileptic seizure, generalized G40.309 [place] [address] [address] Sep, Epileptic seizure, generalized G40.309 a nd Lumbar neuritis M54.16 [place] [address] [address] Aug, Thoracic neuritis M54.14 and Lumbar neur itis M54.16 [place] [address] [address] Jun, [place] [address] [address] Jun, Abscess of leg, left L02.416 [place] [address] [address] May, Lumbar neuritis M54.16 ; Thoracic neurit is M54.14 ; Intracranial injury, without loss of consciousness, subsequent encounter S06.9X0D and Cardiomyopathy I42.9 [place] [address] [address] Apr, Lumbar neuritis M54.16 [place] [address] [address] Apr, [facility] [address] [address] Apr, Elevated liver enzymes R74.8 and Renal i nsufficiency N28.9 [facility] [address] [address] Apr, Lumbar neuritis M54.16 ; Thoracic neurit is M54.14 ; Hypertension, benign I10 ; Cardiomyopathy I42.9 and Epileptic seizure, generalized G40.309 [place] [address] [address] Mar, [place] [address] [address] February, [place] [address] [address] February, Lumbar neuritis M54.16 ; Thoracic neurit is M54.14 ; Hypertension, benign I10 ; Cardiomyopathy I42.9 and Epileptic seizure, generalized G40.309 [place] [address] [address] Dec, [place] [address] [address] Sep, Epigastric mass R19.06 [place] [address] [address] Sep, Epigastric mass R19.06 [place] [address] [address] Sep, [place] [address] [address] Sep, Epigastric mass R19.06 [place] [address] [address] Sep, Epigastric mass R19.06 and Lung mass R91 .8 [facility] [address] [facility] [id number] [address] [place] [address] Jul, Shortness of breath R06.02 ; Dysuria R30.0 and Acute bronchitis, unspecified organism J20.9 [facility] [address] [address] Jul, [facility] [address] [address] 15 Jun, 2016 Seizures R56.9 ; Thoracic neuritis M54.1 4 ; Lumbar neuritis M54.16 and GERD (gastroesophageal reflux disease) K21.9 [facility] [address] [facility] [id number] [address] [place] [address] Jan, [facility] [address] [address] Sep, [place] [address] [address] Sep, Intracranial injury, without loss of con sciousness, subsequent encounter S06.9X0D ; Cardiomyopathy I42.9 ; GERD (gastroesophageal reflux disease) K21.9 ; Hypertension, benign I10 ; Thoracic neuritis M54.14 and Lumbar neuritis M54.16 [place] [address] [address] Mar, [place] [address] [address] Mar, Coronary atherosclerosis of unspecified type of vessel, [place] or graft 414.00 ; Unspecified essential hypertension 401.9 ; Thoracic or lumbosacral neuritis or radiculitis, unspecified 724.4 and Other convulsions 780.39 [facility] [address] [address] Jan, [facility] [address] [address] Jan, [place] [address] [address] Nov, [facility] [address] [address] Nov, [facility] [address] [id number] [place] [address] Nov, 2014 [facility] [address] [id number] [place] [address] Nov, 2014 [facility] [address] [id number] [place] [address] Nov, 2014 [facility] [address] [id number] [place] [address] Nov, 2014 [facility] [address] [id number] [place] [address] Nov, 2014 [facility] [address] [id number] [place] [address] Nov, 2014 [facility] [address] [id number] [place] [address] Nov, 2014 [facility] [address] [id number] [place] [address] Nov, 2014 [facility] [address] [id number] [place] [address] Sep, [facility] [address] [place] [id number] [place] [address] Sep, [facility] [address] [id number] [place] [address] Aug, [facility] [address] [id number] [place] [address] Aug, [facility] [address] [id number] [place] [address] Aug, [facility] [address] [id number] [place] [address] Aug, [facility] [address] [id number] [place] [address] Jul, [facility] [address] [place] [id number] [place] [address] Jul, [facility] [address] [id number] [facility] [address] Jul, [facility] [address] [id number] [place] [address] Jul, [facility] [address] [facility] [id number] [place] [address] Jun, [facility] [address] [id number] [place] [address] Jun, [facility] [address] [facility] [id number] [place] [address] Jun, [facility] [address] [facility] [id number] [place] [address] May, [facility] [address] [id number] [place] [address] May, [facility] [address] [id number] [place] [address] May, [facility] [address] [id number] [place] [address] May, [facility] [address] [id number] [place] [address] May, [facility] [address] [id number] [place] [address] May, [facility] [address] [id number] [place] [address] May, [facility] [address] [id number] [place] [address] May, [facility] [address] [facility] [id number] [place] [address] February, [facility] [address] [id number] [place] [address] February, [facility] [address] [id number] [place] [address] Jan, [facility] [address] [id number] [place] [address] Jan, [facility] [address] [id number] [place] [address] Jan, [facility] [address] [id number] [place] [address] Jan, [facility] [address] [id number] [place] [address] Nov, [facility] [address] [id number] [place] [address] Nov, [facility] [address] [id number] [place] [address] Nov, [facility] [address] [id number] [place] [address] Nov, [facility] [address] [id number] [place] [address] Sep, [facility] [address] [id number] [place] [address] 18 Sep, 2013 [facility] [address] [id number] [place] [address] Sep, [facility] [address] [id number] [place] [address] Sep, [facility] [address] [id number] [place] [address] 06 Sep, 2013 [facility] [address] [place] [id number] [place] [address] 06 Sep, 2013 [facility] [address] [id number] [place] [address] Jul, [facility] [address] [id number] [place] [address] Jul, [facility] [address] [id number] [place] [address] 30 Jun, 2013 [facility] [address] [id number] [place] [address] 23 Jun, 2013 [facility] [address] [id number] [place] [address] Jun, [facility] [address] [facility] [id number] [place] [address] May, Via [facility] [address] [place] [facility] [id number] May, [facility] [address] [id number] [facility] [address] May, [facility] [address] [id number] [place] [address] May, [facility] [address] [facility] [id number] [facility] [address] May, [facility] [address] [id number] [place] [address] May, [facility] [address] [id number] [place] [address] May, [facility] [address] [id number] [place] [address] Apr, [facility] [address] [facility] [id number] [place] [address] Apr, [facility] [address] [id number] [place] [address] Apr, [facility] [address] [id number] [place] [address] Apr, [facility] [address] [id number] [place] [address] Mar, [facility] [address] [facility] [id number] [place] [address] February, [facility] [address] [id number] [place] [address] Jan, [facility] [address] [id number] [place] [address] Dec, [facility] [address] [id number] [place] [address] Dec, [facility] [address] [id number] [place] [address] Dec, [facility] [address] [id number] [place] [address] Nov, [facility] [address] [id number] [place] [address] Nov, [facility] [address] [id number] [place] [address] Nov, [facility] [address] [id number] [place] [address] Oct, [facility] [address] [id number] [place] [address] Oct, [facility] [address] [id number] [place] [address] Sep, [facility] [address] [id number] [place] [address] Sep, [facility] [address] [id number] [place] [address] Sep, [facility] [address] [id number] [place] [address] Sep, [facility] [address] [id number] [place] [address] Sep, [facility] [address] [id number] [place] [address] Sep, [facility] [address] [id number] [place] [address] Aug, [facility] [address] [id number] [place] [address] Aug, [facility] [address] [id number] [place] [address] Aug, [facility] [address] [id number] [place] [address] Aug, [facility] [id number] [place] [address] Aug, [facility] [address] [id number] [place] [address] Aug, [facility] [address] [id number] [place] [address] Aug, [facility] [address] [id number] [place] [address] Aug, [facility] [address] [id number] [place] [address] Aug, [facility] [address] [id number] [place] [address] Aug, [facility] [address] [id number] [place] [address] Jul, [facility] [address] [id number] [place] [address] Jul, [facility] [id number] [place] [address] Jul, [facility] [address] [id number] [place] [address] Jul, [facility] [address] [id number] [place] [address] Jul, [facility] [address] [id number] [place] [address] Jul, [facility] [address] [id number] [place] [address] Jul, [facility] [address] [id number] [place] [address] Jul, [facility] [address] [id number] [place] [address] 18 Jul, 2012 [facility] [address] [id number] [place] [address] Jul, [facility] [address] [id number] [place] [address] Jul, [facility] [address] [id number] [place] [address] Jul, [facility] [address] [facility] [id number] [place] [address] Jul, [facility] [address] [facility] [id number] [place] [address] Jul, [facility] [address] [id number] [place] [address] Jul, [facility] [address] [id number] [place] [address] Jun, [facility] [address] [facility] [id number] [facility] [address] Jun, [facility] [address] [id number] [place] [address] Jun, [facility] [address] [id number] [place] [address] May, [facility] [address] [id number] [place] [address] May, [facility] [address] [id number] [place] [address] Mar, [facility] [address] [id number] [place] [address] Mar, [facility] [address] [id number] [place] [address] February, [facility] [address] [id number] [place] [address] February, [facility] [address] [id number] [place] [address] Nov, [facility] [address] [id number] [place] [address] Oct, [facility] [address] [id number] [place] [address] Oct, [facility] [address] [id number] [place] [address] Oct, [facility] [id number] [place] [address] Aug, [facility] [id number] [place] [address] Jul, [facility] [id number] [place] [address] Sep, [facility] [id number] [place] [address] Aug, [facility] [id number] [place] [address] Jul, [facility] [id number] [place] [address] Apr, [facility] [id number] [place] [address] February, [facility] [id number] [place] [address] Sep, [facility] [id number] [place] [address] Sep, [facility] [id number] [place] [address] Sep, [facility] [id number] [place] [address] Apr, [facility] [id number] [place] [address] Mar, [facility] [id number] [place] [address] February, [facility] [id number] [place] [address] Jan, [facility] [id number] [place] [address] Jul, IMMUNIZATIONS No Known Immunizations SOCIAL HISTORY Never Assessed REASON FOR VISIT PLAN OF CARE VITAL SIGNS Height 63 in 2013-12-10 Weight 190.2 lbs 2013-12-10 Temperature 96.7 degrees Fahrenheit 2013-12-10 Heart Rate 104 bpm 2013-12-10 Respiratory Rate 20 2013-12-10 Blood pressure systolic 112 mmHg 2013-12-10 Blood pressure diastolic 68 mmHg 2013-12-10 MEDICATIONS Unknown Medications RESULTS No Results PROCEDURES Procedure Date Ordered Result Body Site CT ABD&PELV 1+ SECTION/REGNS Dec 10, 2013 MEASURE BLOOD OXYGEN LEVEL Dec 10, 2013 INSTRUCTIONS MEDICATIONS ADMINISTERED No Known Medications MEDICAL (GENERAL) HISTORY Type Description Date Medical History Post-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/2013-ejection frac tion 30 % Medical History Chronic Obstructive pulmonary disease Medical History Hernia-repaired Medical History Hyperactive bladder Medical History [id number] 03/2011-6.1 % Medical History Epilepsy and recurrent [...] Hospitalization History Defibulator placement 02/2018 Hospitalization History [facility] - UTI 04/2018-05/14 018 Hospitalization History [facility] for dehydration 08/17/19
--- OUTSIDE RECORDS SUMMARY | 2020-01-08 01:31 | XMS REPORT ---
Author Author Michelle Dukes Doctor Organization [facility] Address Unknown Phone Unavailable Care Team Providers Care Dispatch Associate Name Role Phone Migration, Doctor Unavailable Unavailable PROBLEMS Type Condition ICD9-CM Code [id number] Code Onset Dates Condition S tatus SNOMED Code Problem Lumbar neuritis M54.16 Active 1281 28232 Problem Thoracic neuritis M54.14 Active 58 965543 Problem Hypertension, benign I10 Active 31355878 Problem Cardiomyopathy I42.9 Active 50966 001 Problem Epileptic seizure, generalized G40.309 Active 42570127 Problem Excessive daytime sleepiness G47.19 A ctive [id number] Problem GERD (gastroesophageal reflux disease) K21.9 Active 135618716 Problem Panlobular emphysema J43.1 Active 9411697 Problem Intracranial injury, without loss of consciousness, subsequent encounter S06.9X0D Active 257757850 Problem Ventricular arrhythmia I49.9 Active 61812601 Problem Mood disorder F39 Active 658010 05 Problem Seasonal allergic rhinitis, unspecified trigger J3 0.2 Active 821799533 Problem Observed sleep apnea G47.30 Active 50025503 ALLERGIES No Information ENCOUNTERS Encounter Location Date Diagnosis [place] [address] [address] Dec, Mood disorder F39 [place] [address] [address] Nov, [place] [address] [address] Oct, Cardiomyopathy I42.9 ; Hypertension, wilian ign I10 and Mood disorder F39 [place] [address] [address] Oct, Epileptic seizure, generalized G40.309 [place] [address] [address] Oct, Panlobular emphysema J43.1 [facility] [address] [address] Oct, [facility] [address] [address] Oct, Panlobular emphysema J43.1 [facility] [address] [address] Sep, Unspecified convulsions R56.9 [facility] [address] [address] Aug, Seizures R56.9 [facility] [address] [address] Aug, [facility] [address] [address] Aug, Hypertension, benign I10 [place] [address] [address] Aug, [facility] [address] [address] Aug, [facility] [address] [address] Aug, [place] [address] [address] Aug, Panlobular emphysema J43.1 ; Observed sl eep apnea G47.30 and Excessive daytime sleepiness G47.19 [facility] [address] [address] Aug, [facility] [address] [address] Jun, Seizures R56.9 [facility] [address] [address] Jun, [facility] [address] [address] Jun, [facility] [address] [address] Jun, [facility] [address] [address] May, Acute right-sided low back pain without sciatica M54.5 [facility] [address] [address] May, Acute right-sided low back pain without sciatica M54.5 [facility] [address] [address] Apr, High risk medication use Z79.899 ; Acute septic pulmonary embolism without acute cor pulmonale I26.90 and Cellulitis of leg without foot L03.119 [place] [address] [address] Jan, [place] [address] [address] Jan, Seizures R56.9 [place] [address] [address] Dec, Seizures R56.9 [facility] [address] [facility] [id number] [address] [place] [address] Nov, Dysuria R30.0 and Urinary tr act infection without hematuria, site unspecified N39.0 [facility] [address] [address] Nov, [facility] [address] [address] Nov, Seizures R56.9 [facility] [address] [address] Sep, Seizures R56.9 [place] [address] [address] Sep, Seasonal allergic rhinitis, unspecified trigger J30.2 [facility] [address] [address] Aug, Neck pain on left side M54.2 ; Mood diso rder F39 and GERD (gastroesophageal reflux disease) K21.9 [facility] [address] [address] Aug, Seizures R56.9 [facility] [address] [address] Aug, Mood disorder F39 ; Neck pain on left si de M54.2 and Hypertension, benign I10 [facility] [address] [address] Aug, [facility] [address] [address] Aug, [facility] [address] [address] Jul, [facility] [address] [address] Jul, Hypertension, benign I10 [facility] [address] [address] Jul, [facility] [address] [address] Jul, Thoracic neuritis M54.14 ; Pain of left leg M79.605 and Pain in right leg M79.604 [facility] [address] [address] Jun, Seizures R56.9 [facility] [address] [address] May, [facility] [address] [address] May, [facility] [address] [address] May, [facility] [address] [address] May, Seizures R56.9 [facility] [address] [address] May, [place] [address] [address] May, Delirium R41.0 [place] [address] [address] Apr, [place] [address] [address] February, Ventricular arrhythmia I49.9 [place] [address] [address] February, [place] [address] [address] Dec, Thoracic neuritis M54.14 ; Lumbar neurit is M54.16 and Epileptic seizure, generalized G40.[address] [address] Sep, Epileptic seizure, generalized G40.309 a nd Lumbar neuritis M54.16 [place] [address] [address] Aug, Thoracic neuritis M54.14 and Lumbar neur itis M54.16 [place] [address] [address] Jun, [address] [address] Jun, Abscess of leg, left L02.416 [place] [address] [address] May, Lumbar neuritis M54.16 ; Thoracic neurit is M54.14 ; Intracranial injury, without loss of consciousness, subsequent encounter S06.9X0D and Cardiomyopathy I42.9 [place] [address] [address] Apr, Lumbar neuritis M54.16 [place] [address] [address] Apr, [address] [id number] [place] [address] Apr, Elevated liver enzymes R74.8 and Renal i nsufficiency N28.9 [place] [address] [address] Apr, Lumbar neuritis M54.16 ; Thoracic neurit is M54.14 ; Hypertension, benign I10 ; Cardiomyopathy I42.9 and Epileptic seizure, generalized G40.309 [place] [address] [address] Mar, [place] [address] [address] February, [place] [address] [address] February, Lumbar neuritis M54.16 ; Thoracic neurit is M54.14 ; Hypertension, benign I10 ; Cardiomyopathy I42.9 and Epileptic seizure, generalized G40.309 [place] [address] [address] Dec, [place] [address] [address] Sep, Epigastric mass R19.06 [place] [address] [address] Sep, Epigastric mass R19.06 [place] [address] [address] Sep, [place] [address] [address] Sep, Epigastric mass R19.06 [place] [address] [address] Sep, Epigastric mass R19.06 and Lung mass R91 .8 [facility] [address] [facility] [id number] [address] [place] [address] Jul, Shortness of breath R06.02 ; Dysuria R30.0 and Acute bronchitis, unspecified organism J20.9 [facility] [address] [address] Jul, [place] [address] [address] Jun, Seizures R56.9 ; Thoracic neuritis M54.1 4 ; Lumbar neuritis M54.16 and GERD (gastroesophageal reflux disease) K21.9 [facility] [address] [facility] [id number] [address] [place] [address] Jan, [facility] [address] [address] Sep, [place] [address] [address] Sep, Intracranial injury, without loss of con sciousness, subsequent encounter S06.9X0D ; Cardiomyopathy I42.9 ; GERD (gastroesophageal reflux disease) K21.9 ; Hypertension, benign I10 ; Thoracic neuritis M54.14 and Lumbar neuritis M54.16 [place] [address] [address] Mar, [place] [address] [address] Mar, Coronary atherosclerosis of unspecified type of vessel, [place] or graft 414.00 ; Unspecified essential hypertension 401.9 ; Thoracic or lumbosacral neuritis or radiculitis, unspecified 724.4 and Other convulsions 780.39 [place] [address] [address] Jan, [place] [address] [address] Jan, [place] [address] [address] Nov, [place] [address] [address] Nov, [place] [address] [place] [address] Nov, 2014 [facility] [place] [facility] [address] [id number] [place] [address] Nov, 2014 [facility] [place] [facility] [address] [id number] [place] [address] Nov, 2014 [facility] [place] [facility] [address] [id number] [place] [address] Nov, 2014 [facility] [place] [facility] [address] [id number] [place] [address] Nov, 2014 [facility] [place] [facility] [address] [id number] [place] [address] Nov, 2014 [facility] [place] [facility] [address] [id number] [place] [address] Nov, 2014 [facility] [place] [facility] [address] [place] [id number] [place] [address] Nov, 2014 [facility] [place] [facility] [address] [place] [id number] [place] [address] Sep, [facility] [place] [facility] [address] [place] [id number] [place] [address] Sep, [facility] [place] [facility] [address] [place] [id number] [place] [address] Aug, [facility] [place] [facility] [address] [place] [id number] [place] [address] Aug, [facility] [place] [facility] [address] [place] [id number] [place] [address] Aug, [facility] [place] [facility] [address] [id number] [place] [address] Aug, [facility] [place] [facility] [address] [place] [id number] [place] [address] Jul, [facility] [place] [facility] [address] [id number] [place] [address] Jul, [facility] [place] [facility] [address] [place] [id number] [place] [address] Jul, [facility] [place] [facility] [address] [id number] [place] [address] Jul, [facility] [place] [facility] [address] [facility] [id number] [place] [address] Jun, [facility] [place] [facility] [address] [id number] [place] [address] Jun, [facility] [place] [facility] [address] [id number] [place] [address] Jun, [facility] [place] [facility] [address] [facility] [id number] [place] [address] May, [facility] [place] [facility] [address] [id number] [place] [address] May, [facility] [place] [facility] [address] [id number] [place] [address] May, [facility] [place] [facility] [address] [id number] [place] [address] May, [facility] [place] [facility] [address] [id number] [place] [address] May, [facility] [place] [facility] [address] [id number] [place] [address] May, [facility] [place] [facility] [address] [id number] [place] [address] May, [facility] [place] [facility] [address] [id number] [place] [address] May, [facility] [place] [facility] [address] [id number] [place] [address] February, [facility] [place] [facility] [address] [id number] [place] [address] February, [facility] [place] [facility] [address] [id number] [place] [address] Jan, [facility] [place] [facility] [address] [id number] [place] [address] Jan, [facility] [place] [facility] [address] [id number] [place] [address] Jan, [facility] [place] [facility] [address] [id number] [place] [address] Jan, [facility] [place] [facility] [address] [id number] [place] [address] Nov, [facility] [place] [facility] [address] [id number] [place] [address] Nov, [facility] [place] [facility] [address] [id number] [place] [address] Nov, [facility] [place] [facility] [address] [id number] [place] [address] Nov, [facility] [place] [facility] [address] [id number] [place] [address] Sep, [facility] [place] [facility] [address] [id number] [place] [address] 18 Sep, 2013 [facility] [place] [facility] [address] [place] [id number] [place] [address] Sep, [facility] [place] [facility] [address] [id number] [place] [address] Sep, [facility] [place] [facility] [address] [id number] [place] [address] 06 Sep, 2013 [facility] [place] [facility] [address] [id number] [place] [address] Sep, [facility] [place] [facility] [address] [id number] [place] [address] Jul, [facility] [place] [facility] [address] [id number] [place] [address] 11 Jul, 2013 [facility] [place] [facility] [address] [place] [id number] [place] [address] 30 Jun, 2013 [facility] [place] [facility] [address] [id number] [place] [address] 23 Sep, 2012 [facility] [place] [facility] [address] [id number] [place] [address] 17 Sep, 2012 [facility] [place] [facility] [address] [facility] [id number] [place] [address] May, Via [facility] [address] [place] [facility] [id number] May, [facility] [place] [facility] [address] [facility] [id number] [place] [address] May, [facility] [place] [facility] [address] [id number] [place] [address] May, [facility] [place] [facility] [address] [facility] [id number] [place] [address] May, [facility] [place] [facility] [address] [facility] [id number] [place] [address] May, [facility] [place] [facility] [address] [id number] [place] [address] May, [facility] [place] [facility] [address] [id number] [place] [address] Apr, [facility] [place] [facility] [address] [id number] [place] [address] Apr, [facility] [place] [facility] [address] [facility] [id number] [place] [address] Apr, [facility] [place] [facility] [address] [id number] [place] [address] Apr, [facility] [place] [facility] [address] [id number] [place] [address] Mar, [facility] [place] [facility] [address] [id number] [place] [address] February, [facility] [place] [facility] [address] [facility] [id number] [place] [address] Jan, [facility] [place] [facility] [address] [id number] [place] [address] Dec, [facility] [place] [facility] [address] [id number] [place] [address] Dec, [facility] [place] [facility] [address] [id number] [place] [address] Dec, [facility] [address] [id number] [place] [address] Nov, [facility] [place] [facility] [address] [id number] [place] [address] Nov, [facility] [place] [facility] [address] [id number] [place] [address] Nov, [facility] [place] [facility] [address] [id number] [place] [address] Oct, [facility] [place] [facility] [address] [id number] [place] [address] Oct, [facility] [place] [facility] [address] [id number] [place] [address] Sep, [facility] [place] [facility] [address] [id number] [place] [address] Sep, [facility] [place] [facility] [address] [place] [id number] [place] [address] Sep, [facility] [place] [facility] [address] [id number] [place] [address] Sep, [facility] [place] [facility] [address] [id number] [place] [address] Sep, [facility] [place] [facility] [address] [id number] [place] [address] Sep, [facility] [place] [facility] [address] [id number] [place] [address] Aug, [facility] [place] [facility] [address] [id number] [place] [address] Aug, [facility] [place] [facility] [address] [id number] [place] [address] Aug, [facility] [place] [facility] [address] [id number] [place] [address] Aug, [facility] [place] [facility] [address] [id number] [place] [address] Aug, [facility] [place] [facility] [address] [id number] [place] [address] Aug, [facility] [place] [facility] [address] [id number] [place] [address] Aug, [facility] [place] [facility] [address] [id number] [place] [address] Aug, [facility] [place] [facility] [address] [id number] [place] [address] Aug, [facility] [place] [facility] [address] [id number] [place] [address] Aug, [facility] [place] [facility] [address] [id number] [place] [address] Jul, [facility] [place] [facility] [address] [id number] [place] [address] Jul, [facility] [place] [facility] [address] [id number] [place] [address] Jul, [facility] [place] [facility] [address] [id number] [place] [address] Jul, [facility] [place] [facility] [address] [id number] [place] [address] Jul, [facility] [place] [facility] [address] [id number] [place] [address] 24 Jul, 2012 [facility] [place] [facility] [address] [id number] [place] [address] Jul, [facility] [place] [facility] [address] [id number] [place] [address] Jul, [facility] [place] [facility] [address] [id number] [place] [address] 18 Jul, 2012 [facility] [place] [facility] [address] [id number] [place] [address] Jul, [facility] [place] [facility] [address] [id number] [place] [address] Jul, [facility] [place] [facility] [address] [id number] [place] [address] Jul, [facility] [place] [facility] [address] [id number] [place] [address] Jul, [facility] [place] [facility] [address] [id number] [place] [address] Jul, [facility] [address] [id number] [place] [address] Jul, [facility] [address] [id number] [place] [address] Jun, [facility] [address] [id number] [place] [address] Jun, [facility] [address] [id number] [place] [address] Jun, [facility] [address] [id number] [place] [address] May, [facility] [id number] [place] [address] May, [facility] [address] [id number] [place] [address] Mar, [facility] [address] [id number] [place] [address] Mar, [facility] [address] [id number] [place] [address] February, [facility] [address] [id number] [place] [address] February, [facility] [address] [id number] [place] [address] Nov, [facility] [address] [id number] [place] [address] Oct, [facility] [id number] [place] [address] Oct, [facility] [address] [id number] [place] [address] Oct, [facility] [address] [id number] [place] [address] Aug, [facility] [address] [id number] [place] [address] Jul, [facility] [id number] [place] [address] Sep, [facility] [id number] [place] [address] Aug, [facility] [id number] [place] [address] Jul, [facility] [id number] [place] [address] Apr, [facility] [id number] [place] [address] February, [facility] [id number] [place] [address] Sep, [facility] [id number] [place] [address] Sep, [facility] [id number] [place] [address] Sep, [facility] [id number] [place] [address] Apr, [facility] [id number] [place] [address] Mar, [facility] [id number] [place] [address] February, [facility] [id number] [place] [address] Jan, [facility] [id number] [place] [address] Jul, IMMUNIZATIONS No Known Immunizations SOCIAL HISTORY Never Assessed REASON FOR VISIT PLAN OF CARE VITAL SIGNS MEDICATIONS Unknown Medications RESULTS No Results PROCEDURES No Known procedures INSTRUCTIONS MEDICATIONS ADMINISTERED No Known Medications MEDICAL (GENERAL) HISTORY Type Description Date Medical History Post-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/2013-ejection frac tion 30 % Medical History Chronic Obstructive pulmonary disease Medical History Hernia-repaired Medical History Hyperactive bladder Medical History [id number] 03/2011-6.1 % Medical History Epilepsy and recurrent [...] Hospitalization History Defibulator placement 02/2018 Hospitalization History [facility], [facility] - UTI 04/2018-05/14 018 Hospitalization History [facility] for dehydration 08/17/19
--- OUTSIDE RECORDS SUMMARY | 2020-01-08 01:32 | XMS REPORT ---
Author Author Michelle LANGE Organization [facility] Address [address] [place] [address] Care Team Providers Care Amphibious Operations Officer Name Role Phone TRACEE LANGE Unavailable PROBLEMS Type Condition ICD9-CM Code [id number] Code Onset Dates Condition S tatus SNOMED Code Problem Lumbar neuritis M54.16 Active 1281 51377 Problem Thoracic neuritis M54.14 Active 58 446816 Problem Hypertension, benign I10 Active 88562014 Problem Cardiomyopathy I42.9 Active 46065 001 Problem Epileptic seizure, generalized G40.309 Active 98051712 Problem Excessive daytime sleepiness G47.19 A ctive 129239234585 Problem GERD (gastroesophageal reflux disease) K21.9 Active 252162475 Problem Panlobular emphysema J43.1 Active 8588505 Problem Intracranial injury, without loss of consciousness, subsequent encounter S06.9X0D Active 299057346 Problem Ventricular arrhythmia I49.9 Active 82286392 Problem Mood disorder F39 Active 632304 05 Problem Seasonal allergic rhinitis, unspecified trigger J3 0.2 Active 229488697 Problem Observed sleep apnea G47.30 Active 78693672 ALLERGIES No Information ENCOUNTERS Encounter Location Date Diagnosis [facility] [address] [address] Dec, [facility] [address] [address] Oct, [facility] [address] [address] Oct, Epileptic seizure, generalized G40.309 [facility] [address] [address] Oct, Panlobular emphysema J43.1 [place] [address] [address] Oct, [facility] [address] [address] Oct, Panlobular emphysema J43.1 [facility] [address] [address] Sep, Unspecified convulsions R56.9 [facility] [address] [address] Aug, Seizures R56.9 [facility] [address] [address] Aug, [facility] [address] [address] Aug, Hypertension, benign I10 [facility] [address] [address] Aug, [facility] [address] [address] Aug, [facility] [address] [address] Aug, [facility] [address] [address] Aug, Panlobular emphysema J43.1 ; Observed sl eep apnea G47.30 and Excessive daytime sleepiness G47.19 [facility] [address] [address] Aug, [facility] [address] [address] Jun, Seizures R56.9 [facility] [address] [address] Jun, [facility] [address] [address] Jun, [facility] [address] [address] Jun, [facility] [address] [address] May, Acute right-sided low back pain without sciatica M54.5 [place] [address] [address] May, Acute right-sided low back pain without sciatica M54.5 [facility] [address] [address] Apr, High risk medication use Z79.899 ; Acute septic pulmonary embolism without acute cor pulmonale I26.90 and Cellulitis of leg without foot L03.119 [place] [address] [address] Jan, [place] [address] [address] Jan, Seizures R56.9 [place] [address] [address] Dec, Seizures R56.9 [facility] [address] [facility] [id number] [address] [address] Nov, Dysuria R30.0 and Urinary tr act infection without hematuria, site unspecified N39.0 [place] [address] [address] Nov, [place] [address] [address] Nov, Seizures R56.9 [place] [address] [address] Sep, Seizures R56.9 [place] [address] [address] Sep, Seasonal allergic rhinitis, unspecified trigger J30.2 [place] [address] [address] Aug, Neck pain on left side M54.2 ; Mood diso rder F39 and GERD (gastroesophageal reflux disease) K21.9 [place] [address] [address] Aug, Seizures R56.9 [facility] [address] [address] Aug, Mood disorder F39 ; Neck pain on left si de M54.2 and Hypertension, benign I10 [facility] [address] [address] Aug, [facility] [address] [address] Aug, [facility] [address] [address] Jul, [facility] [address] [address] Jul, Hypertension, benign I10 [facility] [address] [address] Jul, [facility] [address] [address] Jul, Thoracic neuritis M54.14 ; Pain of left leg M79.605 and Pain in right leg M79.604 [facility] [address] [address] Jun, Seizures R56.9 [facility] [address] [address] May, [facility] [address] [address] May, [facility] [address] [address] May, [facility] [address] [address] May, Seizures R56.9 [facility] [address] [address] May, [facility] [address] [address] May, Delirium R41.0 [place] [address] [address] Apr, [place] [address] [address] February, Ventricular arrhythmia I49.9 [place] [address] [address] February, [place] [address] [address] Dec, Thoracic neuritis M54.14 ; Lumbar neurit is M54.16 and Epileptic seizure, generalized G40.309 [place] [address] [address] Sep, Epileptic seizure, generalized G40.309 a nd Lumbar neuritis M54.16 [place] [address] [address] Aug, Thoracic neuritis M54.14 and Lumbar neur itis M54.16 [place] [address] [address] Jun, [place] [address] [address] Jun, Abscess of leg, left L02.[address] [address] May, Lumbar neuritis M54.16 ; Thoracic neurit is M54.14 ; Intracranial injury, without loss of consciousness, subsequent encounter S06.9X0D and Cardiomyopathy I42.9 [place] [address] [address] Apr, Lumbar neuritis M54.16 [place] [address] [address] Apr, [place] [address] [address] Apr, Elevated liver enzymes R74.8 and Renal i nsufficiency N28.9 [place] [address] [address] Apr, Lumbar neuritis M54.16 ; Thoracic neurit is M54.14 ; Hypertension, benign I10 ; Cardiomyopathy I42.9 and Epileptic seizure, generalized G40.309 [place] [address] [place] [id number] Mar, [place] [address] [place] [address] February, [place] [address] [address] February, Lumbar neuritis M54.16 ; Thoracic neurit is M54.14 ; Hypertension, benign I10 ; Cardiomyopathy I42.9 and Epileptic seizure, generalized G40.309 [place] [address] [address] Dec, [place] [address] [address] Sep, Epigastric mass R19.06 [place] [address] [address] Sep, Epigastric mass R19.06 [place] [address] [address] Sep, [place] [address] [address] Sep, Epigastric mass R19.06 [place] [address] [address] Sep, Epigastric mass R19.06 and Lung mass R91 .8 [facility] [address] [facility] [id number] [address] [address] Jul, Shortness of breath R06.02 ; Dysuria R30.0 and Acute bronchitis, unspecified organism J20.9 [place] [address] [address] Jul, [facility] [address] [address] Jun, Seizures R56.9 ; Thoracic neuritis M54.1 4 ; Lumbar neuritis M54.16 and GERD (gastroesophageal reflux disease) K21.9 [facility] [address] [facility] [id number] [address] [place] [address] Jan, [facility] [address] [address] Sep, [place] [address] [address] Sep, Intracranial injury, without loss of con sciousness, subsequent encounter S06.9X0D ; Cardiomyopathy I42.9 ; GERD (gastroesophageal reflux disease) K21.9 ; Hypertension, benign I10 ; Thoracic neuritis M54.14 and Lumbar neuritis M54.16 [facility] [address] [address] Mar, [place] [address] [address] Mar, Coronary atherosclerosis of unspecified type of vessel, [place] or graft 414.00 ; Unspecified essential hypertension 401.9 ; Thoracic or lumbosacral neuritis or radiculitis, unspecified 724.4 and Other convulsions 780.39 [place] [address] [address] Jan, [facility] [address] [address] Jan, [facility] [address] [address] Nov, [facility] [address] [address] Nov, [facility] [address] [address] Nov, [facility] [address] [place] [address] Nov, 2014 [facility] [address] [id number] [place] [address] Nov, 2014 [facility] [address] [id number] [place] [address] Nov, 2014 [facility] [address] [place] [id number] [place] [address] Nov, 2014 [facility] [address] [place] [id number] [place] [address] Nov, 2014 [facility] [address] [id number] [place] [address] Nov, 2014 [facility] [address] [place] [id number] [place] [address] Nov, 2014 [facility] [address] [place] [id number] [place] [address] Sep, [facility] [address] [place] [id number] [place] [address] Sep, [facility] [address] [place] [id number] [place] [address] Aug, [facility] [address] [place] [id number] [place] [address] Aug, [facility] [address] [place] [id number] [place] [address] Aug, [facility] [address] [place] [id number] [place] [address] Aug, [facility] [address] [id number] [place] [address] Jul, [facility] [address] [place] [id number] [place] [address] Jul, [facility] [address] [id number] [place] [address] Jul, [facility] [address] [place] [id number] [place] [address] Jul, [facility] [address] [id number] [place] [address] Jun, [facility] [address] [facility] [id number] [place] [address] Jun, [facility] [address] [id number] [place] [address] Jun, [facility] [address] [id number] [place] [address] May, [facility] [address] [facility] [id number] [place] [address] May, [facility] [address] [id number] [place] [address] May, [facility] [address] [id number] [place] [address] May, [facility] [address] [id number] [place] [address] May, [facility] [address] [id number] [place] [address] May, [facility] [address] [id number] [place] [address] May, [facility] [address] [id number] [place] [address] May, [facility] [address] [id number] [place] [address] February, [facility] [address] [id number] [place] [address] February, [facility] [address] [id number] [place] [address] Jan, [facility] [address] [id number] [place] [address] Jan, [facility] [address] [id number] [place] [address] Jan, [facility] [address] [id number] [place] [address] Jan, [facility] [address] [id number] [place] [address] Nov, [facility] [address] [id number] [place] [address] Nov, [facility] [address] [id number] [place] [address] Nov, [facility] [address] [id number] [place] [address] Nov, [facility] [address] [id number] [place] [address] Sep, [facility] [address] [id number] [place] [address] Sep, [facility] [address] [place] [id number] [place] [address] Sep, [facility] [address] [place] [id number] [place] [address] Sep, [facility] [address] [id number] [place] [address] Sep, [facility] [address] [place] [id number] [place] [address] Sep, [facility] [address] [id number] [place] [address] Jul, [facility] [address] [place] [id number] [place] [address] Jul, [facility] [address] [id number] [place] [address] 30 Jun, 2013 [facility] [address] [place] [id number] [place] [address] 23 Jun, 2013 [facility] [address] [id number] [place] [address] 17 Jun, 2013 [facility] [address] [id number] [place] [address] May, [facility] [address] [facility] [id number] May, [facility] [address] [id number] [place] [address] May, [facility] [address] [id number] [place] [address] May, [facility] [address] [id number] [place] [address] May, [facility] [address] [id number] [place] [address] May, [facility] [address] [id number] [place] [address] May, [facility] [address] [id number] [place] [address] Apr, [facility] [address] [id number] [place] [address] Apr, [facility] [address] [id number] [place] [address] Apr, [facility] [address] [id number] [place] [address] Apr, [facility] [address] [id number] [place] [address] Mar, [facility] [address] [id number] [place] [address] February, [facility] [address] [id number] [place] [address] Jan, [facility] [address] [id number] [place] [address] Dec, [facility] [address] [id number] [place] [address] Dec, [facility] [address] [id number] [place] [address] Dec, [facility] [address] [id number] [place] [address] Nov, [facility] [address] [id number] [place] [address] Nov, [facility] [address] [id number] [place] [address] Nov, [facility] [address] [id number] [place] [address] Oct, [facility] [address] [id number] [place] [address] Oct, [facility] [address] [id number] [place] [address] Sep, [facility] [address] [id number] [place] [address] Sep, [facility] [address] [id number] [place] [address] Sep, [facility] [address] [place] [id number] [place] [address] Sep, [facility] [address] [id number] [place] [address] Sep, [facility] [address] [id number] [place] [address] Sep, [facility] [address] [id number] [place] [address] Aug, [facility] [address] [place] [id number] [place] [address] Aug, [facility] [address] [id number] [place] [address] Aug, [facility] [address] [id number] [place] [address] Aug, [facility] [address] [id number] [place] [address] Aug, [facility] [address] [id number] [place] [address] Aug, [facility] [address] [id number] [place] [address] Aug, [facility] [address] [id number] [place] [address] Aug, [facility] [address] [id number] [place] [address] Aug, [facility] [address] [id number] [place] [address] Aug, [facility] [address] [id number] [place] [address] Jul, [facility] [address] [id number] [place] [address] Jul, [facility] [address] [id number] [place] [address] Jul, [facility] [address] [id number] [place] [address] Jul, [facility] [address] [id number] [place] [address] Jul, [facility] [address] [id number] [place] [address] Jul, [facility] [address] [id number] [place] [address] Jul, [facility] [address] [id number] [place] [address] Jul, [facility] [address] [id number] [place] [address] Jul, [facility] [address] [id number] [place] [address] Jul, [facility] [address] [id number] [place] [address] Jul, [facility] [address] [id number] [place] [address] Jul, [facility] [address] [id number] [place] [address] Jul, [facility] [address] [id number] [place] [address] Jul, [facility] [address] [id number] [place] [address] Jul, [facility] [address] [id number] [place] [address] Jun, [facility] [address] [id number] [place] [address] 24 Jun, 2012 [facility] [address] [id number] [place] [address] Jun, [facility] [address] [id number] [place] [address] May, [facility] [address] [id number] [place] [address] May, [facility] [address] [id number] [place] [address] Mar, [facility] [address] [id number] [place] [address] Mar, [facility] [address] [id number] [place] [address] February, [facility] [address] [id number] [place] [address] February, [facility] [address] [id number] [place] [address] Nov, [facility] [address] [id number] [place] [address] Oct, [facility] [address] [id number] [place] [address] Oct, [facility] [id number] [place] [address] Oct, [facility] [address] [id number] [place] [address] Aug, [facility] [address] [id number] [place] [address] Jul, [facility] [address] [id number] [place] [address] Sep, [facility] [id number] [place] [address] Aug, [facility] [address] [id number] [place] [address] Jul, [facility] [id number] [place] [address] Apr, [facility] [id number] [place] [address] February, [facility] [address] [address] Sep, [facility] [id number] [place] [address] Sep, [facility] [address] [address] Sep, [facility] [id number] [place] [address] Apr, [facility] [id number] [place] [address] Mar, [facility] [id number] [place] [address] February, [facility] [address] [address] Jan, [facility] [id number] [place] [address] Jul, IMMUNIZATIONS No Known Immunizations SOCIAL HISTORY Never Assessed REASON FOR VISIT PLAN OF CARE VITAL SIGNS MEDICATIONS Unknown Medications RESULTS No Results PROCEDURES No Known procedures INSTRUCTIONS MEDICATIONS ADMINISTERED No Known Medications MEDICAL (GENERAL) HISTORY Type Description Date Medical History Post-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/2013-ejection frac tion 30 % Medical History Chronic Obstructive pulmonary disease Medical History Hernia-repaired Medical History Hyperactive bladder Medical History [id number] 03/2011-6.1 % Medical History Epilepsy and recurrent [...] Hospitalization History [facility] - UTI 04/2018-05/14 018 Hospitalization History [facility] for dehydration 08/17/19
--- OUTSIDE RECORDS SUMMARY | 2020-01-08 01:32 | XMS REPORT ---
Author Author Michelle LANGE Organization [facility] Address [address] [place] [address] Care Team Providers Care Math Specialist Name Role Phone TRACEE LANGE Unavailable PROBLEMS Type Condition ICD9-CM Code ISH92-ET Code Onset Dates Condition S tatus SNOMED Code Problem Lumbar neuritis M54.16 Active 1281 32295 Problem Thoracic neuritis M54.14 Active 58 338169 Problem Hypertension, benign I10 Active 31565472 Problem Cardiomyopathy I42.9 Active 93127 001 Problem Epileptic seizure, generalized G40.309 Active 15325234 Problem Excessive daytime sleepiness G47.19 A ctive 344731310298 Problem GERD (gastroesophageal reflux disease) K21.9 Active 232222475 Problem Panlobular emphysema J43.1 Active 8833276 Problem Intracranial injury, without loss of consciousness, subsequent encounter S06.9X0D Active 606611550 Problem Ventricular arrhythmia I49.9 Active 14232999 Problem Mood disorder F39 Active 215857 05 Problem Seasonal allergic rhinitis, unspecified trigger J3 0.2 Active 680428145 Problem Observed sleep apnea G47.30 Active [id number] ALLERGIES No Information ENCOUNTERS Encounter Location Date Diagnosis [place] [id number] [address] Dec, [facility] [address] [address] Nov, [facility] [address] [address] Oct, Cardiomyopathy I42.9 ; Hypertension, wilian ign I10 and Mood disorder F39 [facility] [address] [address] Oct, Epileptic seizure, generalized G40.309 [facility] [address] [address] Oct, Panlobular emphysema J43.1 [facility] [address] [address] Oct, [facility] [address] [address] Oct, Panlobular emphysema J43.1 [facility] [address] [address] Sep, Unspecified convulsions R56.9 [facility] [address] [address] Aug, Seizures R56.9 [facility] [address] [address] Aug, [facility] [address] [address] Aug, Hypertension, benign I10 [facility] [address] [address] Aug, [facility] [address] [address] Aug, [facility] [address] [address] Aug, [facility] [address] [address] Aug, Panlobular emphysema J43.1 ; Observed sl eep apnea G47.30 and Excessive daytime sleepiness G47.19 [facility] [address] [address] Aug, [facility] [address] [address] Jun, Seizures R56.9 [facility] [address] [address] Jun, [facility] [address] [address] Jun, [facility] [address] [address] Jun, [facility] [address] [address] May, Acute right-sided low back pain without sciatica M54.5 [facility] [address] [address] May, Acute right-sided low back pain without sciatica M54.5 [facility] [address] [address] Apr, High risk medication use Z79.899 ; Acute septic pulmonary embolism without acute cor pulmonale I26.90 and Cellulitis of leg without foot L03.119 [place] [address] [address] Jan, [place] [address] [address] Jan, Seizures R56.9 [facility] [address] [address] Dec, Seizures R56.9 [facility] [address] [facility] [id number] [address] [place] [address] Nov, Dysuria R30.0 and Urinary tr act infection without hematuria, site unspecified N39.0 [facility] [address] [address] Nov, [facility] [address] [address] Nov, Seizures R56.9 [facility] [address] [address] Sep, Seizures R56.9 [facility] [address] [address] Sep, Seasonal allergic rhinitis, unspecified trigger J30.2 [facility] [address] [address] Aug, Neck pain on left side M54.2 ; Mood diso rder F39 and GERD (gastroesophageal reflux disease) K21.9 [facility] [address] [address] Aug, Seizures R56.9 [facility] [address] [address] Aug, Mood disorder F39 ; Neck pain on left si de M54.2 and Hypertension, benign I10 [facility] [address] [address] Aug, [facility] [address] [address] Aug, [facility] [address] [address] Jul, [facility] [address] [address] Jul, Hypertension, benign I10 [facility] [address] [address] Jul, [facility] [address] [address] Jul, Thoracic neuritis M54.14 ; Pain of left leg M79.605 and Pain in right leg M79.604 [facility] [address] [address] Jun, Seizures R56.9 [facility] [address] [address] May, [facility] [address] [address] May, [facility] [address] [address] May, [facility] [address] [address] May, Seizures R56.9 [place] [address] [address] May, [place] [address] [address] May, Delirium R41.0 [place] [address] [address] Apr, [place] [address] [address] February, Ventricular arrhythmia I49.9 [place] [address] [address] February, [place] [address] [address] Dec, Thoracic neuritis M54.14 ; Lumbar neurit is M54.16 and Epileptic seizure, generalized G40.309 [place] [address] [address] Sep, Epileptic seizure, generalized G40.309 a nd Lumbar neuritis M54.16 [place] [address] [address] Aug, Thoracic neuritis M54.14 and Lumbar neur itis M54.16 [place] [address] [address] Jun, [place] [address] [address] Jun, Abscess of leg, left L02.416 [place] [address] [address] May, Lumbar neuritis M54.16 ; Thoracic neurit is M54.14 ; Intracranial injury, without loss of consciousness, subsequent encounter S06.9X0D and Cardiomyopathy I42.9 [place] [address] [address] Apr, Lumbar neuritis M54.16 [place] [address] [address] Apr, [facility] [address] [address] Apr, Elevated liver enzymes R74.8 and Renal i nsufficiency N28.9 [facility] [address] [address] Apr, Lumbar neuritis M54.16 ; Thoracic neurit is M54.14 ; Hypertension, benign I10 ; Cardiomyopathy I42.9 and Epileptic seizure, generalized G40.309 [place] [address] [address] Mar, [place] [address] [address] February, [place] [address] [address] February, Lumbar neuritis M54.16 ; Thoracic neurit is M54.14 ; Hypertension, benign I10 ; Cardiomyopathy I42.9 and Epileptic seizure, generalized G40.309 [place] [address] [address] Dec, [place] [address] [address] Sep, Epigastric mass R19.06 [place] [address] [address] Sep, Epigastric mass R19.06 [place] [address] [address] Sep, [place] [address] [address] Sep, Epigastric mass R19.06 [place] [address] [address] Sep, Epigastric mass R19.06 and Lung mass R91 .8 [facility] [address] [facility] [id number] [address] [place] [address] Jul, Shortness of breath R06.02 ; Dysuria R30.0 and Acute bronchitis, unspecified organism J20.9 [facility] [address] [address] Jul, [facility] [address] [address] 15 Jun, 2016 Seizures R56.9 ; Thoracic neuritis M54.1 4 ; Lumbar neuritis M54.16 and GERD (gastroesophageal reflux disease) K21.9 [facility] [address] [facility] [id number] [address] [place] [address] Jan, [facility] [address] [address] Sep, [place] [address] [address] Sep, Intracranial injury, without loss of con sciousness, subsequent encounter S06.9X0D ; Cardiomyopathy I42.9 ; GERD (gastroesophageal reflux disease) K21.9 ; Hypertension, benign I10 ; Thoracic neuritis M54.14 and Lumbar neuritis M54.16 [place] [address] [address] Mar, [place] [address] [address] Mar, Coronary atherosclerosis of unspecified type of vessel, nome or graft 414.00 ; Unspecified essential hypertension 401.9 ; Thoracic or lumbosacral neuritis or radiculitis, unspecified 724.4 and Other convulsions 780.39 [facility] [address] [address] Jan, [facility] [address] [address] Jan, [place] [address] [address] Nov, [facility] [address] [address] Nov, [facility] [address] [id number] [place] [address] Nov, 2014 [facility] [address] [id number] [place] [address] Nov, 2014 [facility] [address] [id number] [place] [address] Nov, 2014 [facility] [address] [id number] [place] [address] Nov, 2014 [facility] [address] [id number] [place] [address] Nov, 2014 [facility] [address] [id number] [place] [address] Nov, 2014 [facility] [address] [id number] [place] [address] Nov, 2014 [facility] [address] [id number] [place] [address] Nov, 2014 [facility] [address] [id number] [place] [address] Sep, [facility] [address] [place] [id number] [place] [address] Sep, [facility] [address] [id number] [place] [address] Aug, [facility] [address] [id number] [place] [address] Aug, [facility] [address] [id number] [place] [address] Aug, [facility] [address] [id number] [place] [address] Aug, [facility] [address] [id number] [place] [address] Jul, [facility] [address] [place] [id number] [place] [address] Jul, [facility] [address] [id number] [place] [address] Jul, [facility] [address] [id number] [place] [address] Jul, [facility] [address] [facility] [id number] [place] [address] Jun, [facility] [address] [id number] [place] [address] Jun, [facility] [address] [facility] [id number] [place] [address] Jun, [facility] [address] [facility] [id number] [place] [address] May, [facility] [address] [id number] [place] [address] May, [facility] [address] [id number] [place] [address] May, [facility] [address] [id number] [place] [address] May, [facility] [address] [id number] [place] [address] May, [facility] [address] [id number] [place] [address] May, [facility] [address] [id number] [place] [address] May, [facility] [address] [id number] [place] [address] May, [facility] [address] [facility] [id number] [place] [address] February, [facility] [address] [id number] [place] [address] February, [facility] [address] [id number] [place] [address] Jan, [facility] [address] [id number] [place] [address] Jan, [facility] [address] [id number] [place] [address] Jan, [facility] [address] [id number] [place] [address] Jan, [facility] [address] [id number] [place] [address] Nov, [facility] [address] [id number] [place] [address] Nov, [facility] [address] [id number] [place] [address] Nov, [facility] [address] [id number] [place] [address] Nov, [facility] [address] [id number] [place] [address] Sep, [facility] [address] [id number] [place] [address] 18 Sep, 2013 [facility] [address] [id number] [place] [address] Sep, [facility] [address] [id number] [place] [address] Sep, [facility] [address] [id number] [place] [address] 06 Sep, 2013 [facility] [address] [place] [id number] [place] [address] 06 Sep, 2013 [facility] [address] [id number] [place] [address] Jul, [facility] [address] [id number] [place] [address] Jul, [facility] [address] [id number] [place] [address] 30 Jun, 2013 [facility] [address] [id number] [place] [address] 23 Jun, 2013 [facility] [address] [id number] [place] [address] Jun, [facility] [address] [facility] [id number] [place] [address] May, [address] [facility] [address] [place] [facility] [id number] May, [facility] [address] [id number] [place] [address] May, [facility] [address] [id number] [place] [address] May, [facility] [address] [facility] [id number] [place] [address] May, [facility] [address] [id number] [place] [address] May, [facility] [address] [id number] [place] [address] May, [facility] [address] [id number] [place] [address] Apr, [facility] [address] [facility] [id number] [place] [address] Apr, [facility] [address] [id number] [place] [address] Apr, [facility] [address] [id number] [place] [address] Apr, [facility] [address] [id number] [place] [address] Mar, [facility] [address] [facility] [id number] [place] [address] February, [facility] [address] [id number] [place] [address] Jan, [facility] [address] [id number] [place] [address] Dec, [facility] [address] [id number] [place] [address] Dec, [facility] [address] [id number] [place] [address] Dec, [facility] [address] [id number] [place] [address] Nov, [facility] [address] [id number] [place] [address] Nov, [facility] [address] [id number] [place] [address] Nov, [facility] [address] [id number] [place] [address] Oct, [facility] [address] [id number] [place] [address] Oct, [facility] [address] [id number] [place] [address] Sep, [facility] [address] [id number] [place] [address] Sep, [facility] [address] [id number] [place] [address] Sep, [facility] [address] [id number] [place] [address] Sep, [facility] [address] [id number] [place] [address] Sep, [facility] [address] [id number] [place] [address] Sep, [facility] [address] [id number] [place] [address] Aug, [facility] [address] [id number] [place] [address] Aug, [facility] [address] [place] [id number] [place] [address] Aug, [facility] [address] [id number] [place] [address] Aug, [facility] [address] [place] [id number] [place] [address] Aug, [facility] [address] [id number] [place] [address] Aug, [facility] [address] [id number] [place] [address] Aug, [facility] [address] [id number] [place] [address] Aug, [facility] [address] [id number] [place] [address] Aug, [facility] [address] [id number] [place] [address] Aug, [facility] [address] [id number] [place] [address] Jul, [facility] [address] [id number] [place] [address] Jul, [facility] [address] [place] [id number] [place] [address] Jul, [facility] [address] [id number] [place] [address] Jul, [facility] [address] [id number] [place] [address] Jul, [facility] [address] [id number] [place] [address] Jul, [facility] [address] [id number] [place] [address] Jul, [facility] [address] [id number] [place] [address] Jul, [facility] [address] [id number] [place] [address] 18 Jul, 2012 [facility] [address] [id number] [place] [address] Jul, [facility] [address] [id number] [place] [address] Jul, [facility] [address] [id number] [place] [address] Jul, [facility] [address] [facility] [id number] [place] [address] Jul, [facility] [address] [facility] [id number] [place] [address] Jul, [facility] [address] [id number] [place] [address] Jul, [facility] [address] [id number] [place] [address] Jun, [facility] [address] [facility] [id number] [place] [address] Jun, [facility] [address] [id number] [place] [address] Jun, [facility] [address] [id number] [place] [address] May, [facility] [address] [id number] [place] [address] May, [facility] [address] [id number] [place] [address] Mar, [facility] [address] [id number] [place] [address] Mar, [facility] [address] [id number] [place] [address] February, [facility] [address] [id number] [place] [address] February, [facility] [address] [id number] [place] [address] Nov, [facility] [address] [id number] [place] [address] Oct, [facility] [address] [id number] [place] [address] Oct, [facility] [address] [id number] [place] [address] Oct, [facility] [id number] [place] [address] Aug, [facility] [id number] [place] [address] Jul, [facility] [id number] [place] [address] Sep, [facility] [id number] [place] [address] Aug, [facility] [id number] [place] [address] Jul, [facility] [address] [address] Apr, [facility] [address] [address] February, [facility] [id number] [place] [address] Sep, [facility] [id number] [place] [address] Sep, [facility] [id number] [place] [address] Sep, [facility] [id number] [place] [address] Apr, [facility] [id number] [place] [address] Mar, [facility] [id number] [place] [address] February, [facility] [id number] [place] [address] Jan, [facility] [address] [address] Jul, IMMUNIZATIONS No Known Immunizations SOCIAL HISTORY Never Assessed REASON FOR VISIT PLAN OF CARE VITAL SIGNS MEDICATIONS Unknown Medications RESULTS No Results PROCEDURES No Known procedures INSTRUCTIONS MEDICATIONS ADMINISTERED No Known Medications MEDICAL (GENERAL) HISTORY Type Description Date Medical History Post-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/2013-ejection frac tion 30 % Medical History Chronic Obstructive pulmonary disease Medical History Hernia-repaired Medical History Hyperactive bladder Medical History [id number] 03/2011-6.1 % Medical History Epilepsy and recurrent [...] History [facility] - UTI 04/2018-05/14 018 Hospitalization History [facility] for dehydration 08/17/19
[2020-01-08] MEDS ORDERED: NS IV 1000 ML 1,000 ML ONE (01:36)
--- OUTSIDE RECORDS SUMMARY | 2020-01-08 01:38 | XMS REPORT | Continuity of Care Document ---
Demographics Preferred Language Unknown Marital Status Unknown [employer]ar[employer] Affiliation Unknown Race Unknown Ethnic Group Unknown Author Organization Unknown Address Unknown Phone Unavailable Allergies Active Description Code Type Severity Reaction Onset Reported/Identified Relationship to Patient Clinical Status Yes nitrous oxide [id number] Newton g Allergy Unknown N/A 06/08/2007 Yes AILEEN Inhibitors [id number] Dr ug Allergy Unknown N/A 05/25/2014 Medications There is no data. Problems Date Dx Coded Attending Type Code Diagnosis Diagnosed By 08/08/2008 KRANTHI PRECIADO MD 599.0 Urinary Tract Infection 08/08/2008 599.0 Urin jonas Tract Infection 08/08/2008 599.0 Urin jonas Tract Infection 08/08/2008 TRACEE LANGE APRN 59 9.0 Urinary Tract Infection 08/08/2008 TRACEE LANGE APRN 59 9.0 Urinary Tract Infection 08/08/2008 599.0 Urin joans Tract Infection 08/08/2008 599.0 Urin jonas Tract [...] And Abscess Of Unspecified Sites 01/25/2009 ANISA PATIENT TRANSITION SPECIALIST, TRACEE T 68 2.9 Cellulitis And Abscess [...] Cellulitis And Abscess Of Unspecified Sites 01/25/2009 RTACEE LANGE APRN T 68 2.9 Cellulitis And [...] TRACEE LANGE APRN 787.02 Nausea 03/23/2009 TRACEE ALNGE APRN T 789.01 Abdominal Pain In The [...] PAIN IN JOINT INVOLVING LOWER LEG 03/09/2010 DERGOOT DO, GAVI K 844.9 SPRAIN/STRAIN KNEE/LEG 03/09/2010 [...] 04/25/2010 786.52 Josselyn nful Respiration 04/25/2010 KRANTHI PRECIADO MD 786.5 2 Painful Respiration 04/25/2010 KRANTHI [...] Respiratory Infections Of Unspecified Site 08/20/2010 KRANTHI PRECAIDO MD 491.2 1 Obstructive Chronic Bronchitis With [...] 530.81 ESO PHAGEAL REFLUX 07/17/2011 Ot 553.20 QUETNIN TRAL HERNIA NOS 07/17/2011 Ot 571.8 MEDICAL AIDE MALIKA LIVER DIS NEC 07/17/2011 Ot 577.0 ACUT [...] 530.81 ESO PHAGEAL REFLUX 10/11/2011 Ot 585.9 MEDICAL AIDE MALIKA KIDNEY DISEASE, UNSPECIFIED 10/11/2011 Ot 596.51 [...] APRN 787.01 NAUSEA WITH VOMITING 03/31/2012 TRACEE LAGNE APRN 68 2.9 Cellulitis And Abscess Of [...] 08/04/2012 Ot 414.01 COR ONARY ATHEROSCLEROSIS OF [place] CORON 08/04/2012 Ot 496 CHR AI RWAY OBSTRUCT NEC 08/04/2012 Ot 530.81 ESO PHAGEAL REFLUX 08/04/[address] PAIN NEC 09/16/2012 788.30 URI NARY INCONTINENCE UNSPECIFIED 09/16/2012 788.30 URI NARY INCONTINENCE UNSPECIFIED 09/16/2012 TRACEE LANGE APRN 788.30 [...] 12/20/2012 Ot 414.01 COR ONARY ATHEROSCLEROSIS OF [place] CORON 12/20/2012 Ot 486 PNEUMO ALEJA, ORGANISM [...] MD Ot 414. 01 CORONARY ATHEROSCLEROSIS OF [place] CORON 05/11/2013 NGOC CASTILLO MD Ot 425. [...] 05/21/2013 TRCAEE LANGE APRN 414.00 CAD 05/21/2013 TRCAEE LANGE APRN 42 5.4 CARDIOMYOPHATHY 05/21/2013 TRACEE [...] DEGROOT DO Ot 414.01 CORONARY ATHEROSCLEROSIS OF [place] CORON 06/24/2013 GAVI DEGROOT DO Ot 425.4 [...] Ot 785.0 TACHYCARDIA NOS 07/29/2013 BRI VILLASEÑOR PRACTICING DERMATOLOGIST Ot 682.6 CELLULITIS OF LEG 09/14/2013 VASILIY [...] MD Ot 414. 01 CORONARY ATHEROSCLEROSIS OF [place] CORON 09/14/2013 ABELARDO AMANDA MD Ot 425. [...] IMPLANTABLE CARDIAC DEFIBRILLATOR I 04/09/2014 NEERAJ VILLA PATIENT TRANSITION SPECIALIST Ot 486 PNEUMONIA, ORGANISM NOS 04/09/2014 NEERAJ VILLA PATIENT TRANSITION SPECIALIST Ot 511 .9 PLEURAL EFFUSION NOS 05/25/2014 [...] STAR ORTIZ Ot 724.2 LUMBAGO 02/02/2015 STAR ORITZ Ot V58.69 OT MED,LT,CURRENT USE 01/27/2016 SANTHOSH [...] KAILA DO, HOLA K Ot Z79.899 OTHER APPLICATIONS SYSTEMS ENGINEER (CURRENT) DRUG THERAPY 08/05/2016 KAILA , HOLA [...] MD Ot I25.10 ATHSCL HEART DISEASE OF [place] CORONARY 11/23/2016 QUIN JONES MD Ot J44.9 CHRONIC OBSTRUCTIVE PULMONARY DISEASE, U 11/23/2016 QUIN JONES MD Ot R05 COUGH 11/23/2016 QUIN JONES MD Ot Z79.899 OTHER APPLICATIONS SYSTEMS ENGINEER (CURRENT) DRUG THERAPY 11/26/2016 QUIN JONES MD Ot I25.10 ATHSCL HEART DISEASE OF [place] CORONARY 11/26/2016 QUIN JONES MD Ot J44.9 CHRONIC OBSTRUCTIVE PULMONARY DISEASE, U 11/26/2016 QUIN JONES MD Ot R05 COUGH 11/26/2016 QUIN JONES MD, Ot Z79.899 OTHER APPLICATIONS SYSTEMS ENGINEER (CURRENT) DRUG THERAPY 12/26/2016 KAILA DO, HOLA [...] KAILA DO, HOLA K Ot Z79.899 OTHER APPLICATIONS SYSTEMS ENGINEER (CURRENT) DRUG THERAPY 12/26/2016 KAILA DO, HOLA [...] MD Ot I25.10 ATHSCL HEART DISEASE OF [place] CORONARY 03/06/2017 QUIN JONES MD, Ot J44.9 CHRONIC OBSTRUCTIVE PULMONARY DISEASE, U 03/06/2017 QUIN JONES MD Ot K59.00 CONSTIPATION, UNSPECIFIED 03/06/2017 QUIN JONES MD Ot R10.30 LOWER ABDOMINAL PAIN, UNSPECIFIED 03/06/2017 QUIN JONES MD Ot Z79.899 OTHER APPLICATIONS SYSTEMS ENGINEER (CURRENT) DRUG THERAPY 03/06/2017 ABELARDO AMANDA MD Ot 397. 0 TRICUSPID VALVE DISEASE 03/06/2017 ABELARDO AMANDA MD Ot 424. 0 MITRAL VALVE DISORDER 03/06/2017 ABELARDO AMANDA MD Ot 428. 0 CONGESTIVE HEART FAILURE NOS 03/06/2017 ABELARDO AMANDA MD Ot 428. 0 CONGESTIVE HEART FAILURE NOS 03/07/2017 QUIN JONES MD Ot I16.0 HYPERTENSIVE URGENCY 03/07/2017 QUIN JONES MD, Ot I25.10 ATHSCL HEART DISEASE OF [place] CORONARY 03/07/2017 QUIN JONES MD, Ot J44.9 CHRONIC OBSTRUCTIVE PULMONARY DISEASE, U 03/07/2017 QUIN JONES MD, Ot K59.00 CONSTIPATION, UNSPECIFIED 03/07/2017 QUIN JONES MD Ot R10.30 LOWER ABDOMINAL PAIN, UNSPECIFIED 03/07/2017 QUIN JONES MD, Ot Z79.899 OTHER DETENTION (CURRENT) DRUG THERAPY 06/18/2017 ABELARDO AMANDA MD [...] ORTIZ Ot I25.10 ATHSCL HEART DISEASE OF [place] CORONARY 06/18/2017 STAR ORTIZ Ot I25.2 OLD [...] Ot I25. 10 ATHSCL HEART DISEASE OF [place] CORONARY 02/04/2018 MICHAEL BURRELL MD Ot I25. [...] 02/04/2018 MICHAEL BURRELL MD Ot Z79. 51 DETENTION (CURRENT) USE OF INHALED STERO 02/04/2018 MICHAEL BURRELL MD Ot Z79. 52 DETENTION (CURRENT) USE OF SYSTEMIC STER 02/04/2018 MICHAEL [...] Ot Z88. 8 ALLERGY STATUS TO [facility] DRUG/MEDS/BIOL SUB 02/04/2018 MICHAEL BURRELL MD Ot [...] Ot I25. 10 ATHSCL HEART DISEASE OF [place] CORONARY 02/05/2018 MICHAEL BURRELL MD Ot I25. [...] 02/05/2018 MICHAEL BURRELL MD Ot Z79. 51 APPLICATIONS SYSTEMS ENGINEER (CURRENT) USE OF INHALED STERO 02/05/2018 MICHAEL BURRELL MD Ot Z79. 52 APPLICATIONS SYSTEMS ENGINEER (CURRENT) USE OF SYSTEMIC STER 02/05/2018 MICHAEL [...] Ot Z88. 8 ALLERGY STATUS TO [facility] DRUG/MEDS/BIOL SUB 02/05/2018 MICHAEL BURRELL MD Ot [...] DO Ot I25.10 ATHSCL HEART DISEASE OF [place] CORONARY 02/24/2018 GAVI DEGROOT DO Ot I27.20 PULMONARY HYPERTENSION, UNSPECIFIED 02/24/2018 GAVI DEGROOT DO Ot I34.0 NONRHEUMATIC MITRAL (VALVE) INSUFFICIENC 02/24/2018 GAVI DEGROOT DO Ot I42.0 DILATED CARDIOMYOPATHY 02/24/2018 GAVI DEGROOT DO Ot I50.21 ACUTE SYSTOLIC (CONGESTIVE) HEART FAILUR 02/24/2018 GAVI DEGROOT DO Ot N18.9 CHRONIC KIDNEY DISEASE, UNSPECIFIED 02/24/2018 GAVI DEGROOT DO Ot Z79.89 9 OTHER APPLICATIONS SYSTEMS ENGINEER (CURRENT) DRUG THERAPY 02/24/2018 GAVI DEGROOT DO Ot G40.90 9 EPILEPSY, UNSP, NOT INTRACTABLE, WITHOUT 02/24/2018 AGUSTÍN DEGROOT DOA Alec Ot G89.29 OTHER CHRONIC PAIN 02/24/2018 GAVI DEGROOT DO Ot I12.9 HYPERTENSIVE CHRONIC KIDNEY DISEASE W ST 02/24/2018 GAVI DEGROOT DO Ot I25.10 ATHSCL HEART DISEASE OF [place] CORONARY 02/24/2018 GAVI DEGROOT DO Ot I27.20 PULMONARY HYPERTENSION, UNSPECIFIED 02/24/2018 GAVI DEGROOT DO Ot I34.0 NONRHEUMATIC MITRAL (VALVE) INSUFFICIENC 02/24/2018 GAVI DEGROOT DO Ot I42.0 DILATED CARDIOMYOPATHY 02/24/2018 GAVI DEGROOT DO Ot I50.21 ACUTE SYSTOLIC (CONGESTIVE) HEART FAILUR 02/24/2018 GAVI DEGROOT DO Ot N18.9 CHRONIC KIDNEY DISEASE, UNSPECIFIED 02/24/2018 GAVI DEGROOT DO Ot Z79.89 9 OTHER DETENTION (CURRENT) DRUG THERAPY 05/15/2018 Ot A41.9 SEPS [...] Ot I25.10 ATH SCL HEART DISEASE OF [place] CORONARY 05/15/2018 Ot I42.9 CARD IOMYOPATHY, UNSPECIFIED 05/15/2018 Ot 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 05/15/2018 Ot J43.9 EMPH YSEMA, UNSPECIFIED 05/15/2018 Ot K56.600 PA RTIAL INTESTINAL OBSTRUCTION, UNSPECIF 05/15/2018 Ot L03.115 CE LLULITIS OF RIGHT LOWER LIMB 05/15/2018 Ot L03.116 CE LLULITIS OF LEFT LOWER LIMB 05/15/2018 Ot N17.9 ACUT E KIDNEY FAILURE, UNSPECIFIED 05/15/2018 Ot N18.9 MEDICAL AIDE MALIKA KIDNEY DISEASE, UNSPECIFIED 05/15/2018 Ot N39.0 [...] OF BOTH MITRAL AND T 07/29/2018 Paolo PERIKNS MD Ot I27.20 PULMONARY HYPERTENSION, UNSPECIFIED 07/29/2018 Paolo PERKINS MD Ot I42 .8 OTHER CARDIOMYOPATHIES 08/05/2018 Paolo PERKINS MD Ot 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 08/05/2018 Paolo PERKINS MD Ot Z11 .2 ENCOUNTER FOR SCREENING FOR OTHER BACTER 08/05/2018 Paolo PERKINS MD Ot 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 08/05/2018 Paolo PERIKNS MD Ot Z11 .2 ENCOUNTER FOR SCREENING [...] SMO 09/10/2018 NEERAJ VILLA APRN Ot Z79.51 DETENTION (CURRENT) USE OF INHALED STERO 09/10/2018 NEERAJ VILLA APRN Ot Z79.52 DETENTION (CURRENT) USE OF SYSTEMIC STER 09/10/2018 NEERAJ [...] Ot Z88 .8 ALLERGY STATUS TO [facility] DRUG/MEDS/BIOL SUB 09/10/2018 NEERAJ VILLA APRN Ot [...] SMO 09/14/2018 NEERAJ VILLA APRN Ot Z79.51 DETENTION (CURRENT) USE OF INHALED STERO 09/14/2018 NEERAJ VILLA APRN Ot Z79.52 DETENTION (CURRENT) USE OF SYSTEMIC STER 09/14/2018 NEERAJ [...] SMO 09/29/2018 NEERAJ VILLA APRN Ot Z79.51 APPLICATIONS SYSTEMS ENGINEER (CURRENT) USE OF INHALED STERO 09/29/2018 NEERAJ VILLA APRN Ot Z79.52 APPLICATIONS SYSTEMS ENGINEER (CURRENT) USE OF SYSTEMIC STER 09/29/2018 NEERAJ [...] OTHER BACTER 05/04/2019 Paolo PERKINS MD Ot I08 .1 [...] OBJE 05/04/2019 QUIN JONES MD Ot Z79.51 DETENTION (CURRENT) USE OF INHALED STERO 05/04/2019 QUIN [...] MD, Ot Z88.8 ALLERGY STATUS TO [facility] DRUG/MEDS/BIOL SUB 05/04/2019 QUIN JONES MD, Ot [...] OBJE 05/10/2019 QUIN JONES MD, Ot Z79.51 APPLICATIONS SYSTEMS ENGINEER (CURRENT) USE OF INHALED STERO 05/10/2019 QUIN [...] MD Ot Z88.8 ALLERGY STATUS TO [facility] DRUG/MEDS/BIOL SUB 05/10/2019 QUIN JONES MD Ot [...] LANGE RAJAN Ot E87.2 ACIDOSIS 07/05/2019 HÉCTOR AVLDOVINOS DOI Ot E87.6 HYPOKALEMIA 07/05/2019 ARUNA LANGE RAJAN Ot F15.90 OTHER STIMULANT USE, UNSPECIFIED, UNCOMP 07/05/2019 ARUNA LANGE RAJAN Ot 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, CIGARETTES, UNCOMPL 07/05/2019 ARUNA LANGE ARJAN Ot F31.9 BIPOLAR DISORDER, UNSPECIFIED 07/05/2019 ARUNA [...] R41.82 ALTERED MENTAL STATUS, UNSPECIFIED 07/05/2019 ARUNA LANGE RAJAN Ot T43.62 1A POISONING BY AMPHETAMINES, [...] RAJAN Ot I25.10 ATHSCL HEART DISEASE OF [place] CORONARY 07/10/2019 RAJAN VALDOVINOS DO Ot I38 ENDOCARDITIS, VALVE UNSPECIFIED 07/10/2019 ARUNA LANGE RAJAN Ot J44.9 CHRONIC OBSTRUCTIVE PULMONARY DISEASE, U 07/10/2019 ARUNA LANGE RAJAN Ot K21.9 GASTRO-ESOPHAGEAL REFLUX DISEASE WITHOUT 07/10/2019 ARUNA LANGE RAJAN Ot K56.7 ILEUS, UNSPECIFIED 07/10/2019 ARUNA LANGE RAJAN Ot N17.9 ACUTE KIDNEY FAILURE, UNSPECIFIED 07/10/2019 [...] Ot Z91.1 9 PATIENT'S NONCOMPLIANCE W [facility] MEDICAL TR 08/27/2019 MATTHEW DAVID MD Ot [...] MD, Ot I25.10 ATHSCL HEART DISEASE OF [place] CORONARY 08/27/2019 MATTHEW DAVID MD, Ot I25 [...] 08/27/2019 MATTHEW DAVID MD, Ot Z79.899 OTHER DETENTION (CURRENT) DRUG THERAPY 08/27/2019 MATTHEW DAVID MD, [...] DIS W HRT FAIL AND ST 08/28/2019 MATTHEW DAVID MD Ot I25.10 ATHSCL HEART DISEASE OF [place] CORONARY 08/28/2019 MATTHEW DAVID MD Ot I25 [...] AND CHRONIC RESPIRATORY FAILURE [place] 08/28/2019 MATTHEW DAVID MD, Ot K21 .9 GASTRO-ESOPHAGEAL REFLUX DISEASE WITHOUT 08/28/2019 MATTHEW DAVID MD, Ot N18 .9 CHRONIC KIDNEY DISEASE, UNSPECIFIED 08/28/2019 MATTHEW DAVID MD, Ot N32.81 OVERACTIVE BLADDER 08/28/2019 MATTHEW DAVID MD, Ot R41.82 ALTERED MENTAL STATUS, UNSPECIFIED 08/28/2019 MATTHEW DAVID MD, Ot R79.89 OTHER SPECIFIED ABNORMAL FINDINGS OF BLO 08/28/2019 MATTHEW DAVID MD, Ot Z79.899 OTHER APPLICATIONS SYSTEMS ENGINEER (CURRENT) DRUG THERAPY 08/28/2019 MATTHEW DAVID MD, Ot Z87.820 PERSONAL HISTORY OF TRAUMATIC BRAIN INJU 08/28/2019 MATTHEW DAVID MD, Ot Z91.19 PATIENT'S NONCOMPLIANCE W [facility] MEDICAL TR 08/28/2019 MATTHEW DAVID MD, Ot [...] MD, Ot I25.10 ATHSCL HEART DISEASE OF [place] CORONARY 08/29/2019 MATTHEW DAVID MD, Ot I25 [...] 08/29/2019 MATTHEW DAVID MD, Ot Z79.899 OTHER APPLICATIONS SYSTEMS ENGINEER (CURRENT) DRUG THERAPY 08/29/2019 MATTHEW DAVID MD, [...] MD Ot I25.10 ATHSCL HEART DISEASE OF [place] CORONARY 08/29/2019 MATTHEW DAVID MD, Ot I25 [...] 08/29/2019 MATTHEW DAVID MD, Ot Z79.899 OTHER APPLICATIONS SYSTEMS ENGINEER (CURRENT) DRUG THERAPY 08/29/2019 MATTHEW DAVID MD, Ot Z87.820 PERSONAL HISTORY OF TRAUMATIC BRAIN INJU 08/29/2019 MATTHEW DAVID MD, Ot Z91.19 PATIENT'S NONCOMPLIANCE W OT MEDICAL TR 08/29/2019 MATTHEW DAVID MD, Ot Z99.81 DEPENDENCE ON SUPPLEMENTAL OXYGEN 09/18/2019 RAJAN VALDOVINOS DO Ot D63.8 ANEMIA IN OTHER CHRONIC DISEASES CLASSIF 09/18/2019 RAJAN VALDOVINOS DO Ot E11.22 TYPE 2 DIABETES MELLITUS W DIABETIC MEDICAL AIDE 09/18/2019 RAJAN VALDOVINOS DO Ot E11.51 TYPE [...] UNSP, NOT INTRACTABLE, WITH ST 09/18/2019 ARUNA LANGE, RAJAN Ot I08.1 RHEUMATIC DISORDERS OF BOTH MITRAL AND T 09/18/2019 ARUNA LANGE RAJAN Ot I13.0 HYP HRT CHR KDNY DIS W HRT FAIL AND ST 09/18/2019 ARUNA LANGE RAJAN Ot I25.10 ATHSCL HEART DISEASE OF [place] CORONARY 09/18/2019 ARUNA LANGE RAJAN Ot I25.2 [...] UNSPECIFIED 09/18/2019 ARUNA LANGE RAJAN Ot Z79.82 DETENTION (CURRENT) USE OF ASPIRIN 09/18/2019 ARUNA LANGE [...] Ot Z99.11 DEPENDENCE ON RESPIRATOR [VENTILATOR] ST 10/09/2019 NEERAJ VILLA APRN Ot D64 .9 ANEMIA, UNSPECIFIED 10/09/2019 NEERAJ VILLA APRN Ot E11 .9 TYPE 2 DIABETES MELLITUS WITHOUT COMPLIC 10/09/2019 NEERAJ VILLA APRN Ot F31 .9 BIPOLAR DISORDER, UNSPECIFIED 10/09/2019 NEERAJ VILLA APRN Ot F41 .9 ANXIETY DISORDER, UNSPECIFIED 10/09/2019 NEERAJ VILLA APRN Ot G40.909 EPILEPSY, UNSP, NOT INTRACTABLE, WITHOUT 10/09/2019 NEERAJ VILLA APRN Ot I10 ESSENTIAL (PRIMARY) HYPERTENSION 10/09/2019 NEERAJ VILLA APRN Ot I25.10 ATHSCL HEART DISEASE OF [place] CORONARY 10/09/2019 NEERAJ VILLA APRN Ot I25 .2 OLD MYOCARDIAL INFARCTION 10/09/2019 NEERAJ VILLA APRN, Ot J44 .9 CHRONIC OBSTRUCTIVE PULMONARY DISEASE, U 10/09/2019 NEERAJ VILLA APRN Ot K21 .9 GASTRO-ESOPHAGEAL REFLUX DISEASE WITHOUT 10/09/2019 NEERAJ VILLA APRN Ot R56 .9 UNSPECIFIED CONVULSIONS 10/09/2019 NEERAJ VILLA APRN Ot Z77.22 CNTCT W AND EXPSR TO ENVIRON TOBACCO SMO 10/09/2019 NEERAJ VILLA APRN Ot Z79.82 DETENTION (CURRENT) USE OF ASPIRIN 10/09/2019 NEERAJ VILLA APRN Ot Z82.49 FAMILY HX OF [place]SC[place]M HEART DIS AND OTH DI 10/09/2019 NEERAJ VILLA APRN Ot Z85.41 PERSONAL HISTORY OF MALIGNANT NEOPLASM O 10/09/2019 NEERAJ VILLA APRN Ot Z86.73 PRSNL HX OF TIA (TIA), AND CEREB INFRC W 10/09/2019 NEERAJ VILLA APRN Ot Z87.440 PERSONAL HISTORY OF URINARY (TRACT) INFE 10/09/2019 NEERAJ VILLA APRN Ot Z87.442 PERSONAL HISTORY OF URINARY CALCULI 10/09/2019 NEERAJ VILLA APRN Ot Z87.820 PERSONAL HISTORY OF TRAUMATIC BRAIN INJU 10/09/2019 NEERAJ VILLA APRN Ot Z87.891 PERSONAL HISTORY OF NICOTINE DEPENDENCE 10/09/2019 NEERAJ VILLA APRN Ot Z88 .8 ALLERGY STATUS TO OTH DRUG/MEDS/BIOL SUB 10/09/2019 NEERAJ VILLA APRN Ot Z90.710 ACQUIRED ABSENCE OF BOTH CERVIX AND UTER 10/09/2019 NEERAJ VILLA APRN Ot Z90.89 ACQUIRED ABSENCE OF OTHER ORGANS 10/12/2019 NEERAJ VILLA APRN Ot D64 .9 ANEMIA, UNSPECIFIED 10/12/2019 NEERAJ VILLA APRN Ot E11 .9 TYPE 2 DIABETES MELLITUS WITHOUT COMPLIC 10/12/2019 NEERAJ VILLA APRN Ot F31 .9 BIPOLAR DISORDER, UNSPECIFIED 10/12/2019 NEERAJ VILLA APRN Ot F41 .9 ANXIETY DISORDER, UNSPECIFIED 10/12/2019 NEERAJ VILLA APRN Ot G40.909 EPILEPSY, UNSP, NOT INTRACTABLE, WITHOUT 10/12/2019 NEERAJ VILLA APRN Ot I10 ESSENTIAL (PRIMARY) HYPERTENSION 10/12/2019 NEERAJ VILLA APRN Ot I25.10 ATHSCL HEART DISEASE OF [place] CORONARY 10/12/2019 NEERAJ VILLA APRN Ot I25 .2 OLD MYOCARDIAL INFARCTION 10/12/2019 NEERAJ VILLA APRN Ot J44 .9 CHRONIC OBSTRUCTIVE PULMONARY DISEASE, U 10/12/2019 NEERAJ VILLA APRN Ot K21 .9 GASTRO-ESOPHAGEAL REFLUX DISEASE WITHOUT 10/12/2019 NEERAJ VILLA APRN Ot R56 .9 UNSPECIFIED CONVULSIONS 10/12/2019 NEERAJ VILLA APRN Ot Z77.22 CNTCT W AND EXPSR TO ENVIRON TOBACCO SMO 10/12/2019 NEERAJ VILLA APRN Ot Z79.82 DETENTION (CURRENT) USE OF ASPIRIN 10/12/2019 NEREAJ VILLA APRN Ot Z82.49 FAMILY HX OF ISCHEM HEART DIS AND OTH DI 10/12/2019 NEERAJ VILLA APRN Ot Z85.41 PERSONAL HISTORY OF MALIGNANT NEOPLASM O 10/12/2019 NEERAJ VILLA APRN Ot Z86.73 PRSNL HX OF TIA (TIA), AND CEREB INFRC W 10/12/2019 NEERAJ VILLA APRN Ot Z87.440 PERSONAL HISTORY OF URINARY (TRACT) INFE 10/12/2019 NEERAJ VILLA APRN Ot Z87.442 PERSONAL HISTORY OF URINARY CALCULI 10/12/2019 NEERAJ VILLA APRN Ot Z87.820 PERSONAL HISTORY OF TRAUMATIC BRAIN INJU 10/12/2019 NEERAJ VILLA APRN Ot Z87.891 PERSONAL HISTORY OF NICOTINE DEPENDENCE 10/12/2019 NEERAJ VILLA APRN Ot Z88 .8 ALLERGY STATUS TO OT DRUG/MEDS/BIOL SUB 10/12/2019 NEERAJ VILLA APRN Ot Z90.710 ACQUIRED ABSENCE OF BOTH CERVIX AND UTER 10/12/2019 NEERAJ VILLA APRN Ot Z90.89 ACQUIRED ABSENCE OF OTHER ORGANS 10/27/2019 Paolo PERKINS MD, Ot 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 9 ANEMIA, UNSPECIFIED 11/01/2019 MICHAEL BURRELL MD Ot E11. 9 TYPE 2 DIABETES MELLITUS WITHOUT COMPLIC 11/01/2019 MICHAEL BURRELL MD Ot F31. 9 BIPOLAR DISORDER, UNSPECIFIED 11/01/2019 MICHAEL BURRELL MD Ot F41. 9 ANXIETY DISORDER, UNSPECIFIED 11/01/2019 MICHAEL BURRELL MD Ot G40.909 EPILEPSY, UNSP, NOT INTRACTABLE, WITHOUT 11/01/2019 MICHAEL BURRELL MD Ot I10 ESSENTIAL (PRIMARY) HYPERTENSION 11/01/2019 MICHAEL BURRELL MD Ot I25. 10 ATHSCL HEART DISEASE OF [place] CORONARY 11/01/2019 MICHAEL BURRELL MD Ot I25. 2 OLD MYOCARDIAL INFARCTION 11/01/2019 MICHAEL BURRELL MD Ot J44. 9 CHRONIC OBSTRUCTIVE PULMONARY DISEASE, U 11/01/2019 MICHAEL BURRELL MD Ot K21. 9 GASTRO-ESOPHAGEAL REFLUX DISEASE WITHOUT 11/01/2019 MICHAEL BURRELL MD Ot R53. 1 WEAKNESS 11/01/2019 MICHAEL BURRELL MD Ot Z77. 22 CNTCT W AND EXPSR TO ENVIRON TOBACCO SMO 11/01/2019 MICHAEL BURRELL MD, Ot Z79. 82 APPLICATIONS SYSTEMS ENGINEER (CURRENT) USE OF ASPIRIN 11/01/2019 MICHAEL BURRELL MD, Ot Z82. 49 FAMILY HX OF ISCHEM HEART DIS AND OTH DI 11/01/2019 MICHAEL BURRELL MD, Ot Z85. 41 PERSONAL HISTORY OF MALIGNANT NEOPLASM O 11/01/2019 MICHAEL BURRELL MD, Ot Z86. 73 PRSNL HX OF TIA (TIA), AND CEREB INFRC W 11/01/2019 MICHAEL BURRELL MD, Ot Z87.440 PERSONAL HISTORY OF URINARY (TRACT) INFE 11/01/2019 MICHAEL BURRELL MD, Ot Z87.442 PERSONAL HISTORY OF URINARY CALCULI 11/01/2019 MICHAEL BURRELL MD, Ot Z88. 8 ALLERGY STATUS TO OT DRUG/MEDS/BIOL SUB 11/01/2019 MICHAEL BURRELL MD, Ot Z90.710 ACQUIRED ABSENCE OF BOTH CERVIX AND UTER 11/01/2019 MICHAEL BURRELL MD, Ot Z90. 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 STIMULANT ABUSE, UNCOMPLICATED 12/01/2019 JEANIE MERINO MD Ot F31.9 BIPOLAR DISORDER, UNSPECIFIED 12/01/2019 JEANIE MERINO MD Ot F41.9 ANXIETY DISORDER, UNSPECIFIED 12/01/2019 JEANIE MERINO MD Ot G40.909 EPILEPSY, UNSP, NOT INTRACTABLE, WITHOUT 12/01/2019 JEANIE MERINO MD Ot I12.9 HYPERTENSIVE CHRONIC KIDNEY DISEASE W ST 12/01/2019 JEANIE MERINO MD Ot I25.10 ATHSCL HEART DISEASE OF [place] CORONARY 12/01/2019 JEANIE MERINO MD Ot I25.2 OLD MYOCARDIAL INFARCTION 12/01/2019 JEANIE MERINO MD, Ot I42.9 CARDIOMYOPATHY, UNSPECIFIED 12/01/2019 JEANIE MERINO MD, Ot J44.9 CHRONIC OBSTRUCTIVE PULMONARY DISEASE, U 12/01/2019 JEANIE MERINO MD, Ot K21.9 GASTRO-ESOPHAGEAL REFLUX DISEASE WITHOUT 12/01/2019 JEANIE MERINO MD, Ot M19.91 PRIMARY OSTEOARTHRITIS, UNSPECIFIED SITE 12/01/2019 JEANIE MERINO MD, Ot M54.9 DORSALGIA, UNSPECIFIED 12/01/2019 JEANIE MERINO MD, Ot N17.9 ACUTE KIDNEY FAILURE, UNSPECIFIED 12/01/2019 JEANIE MERINO MD, Ot N18.9 CHRONIC KIDNEY DISEASE, UNSPECIFIED 12/01/2019 JEANIE MERINO MD, Ot N26.1 ATROPHY OF KIDNEY (TERMINAL) 12/01/2019 JEANIE MERINO MD, Ot N39.0 URINARY TRACT INFECTION, SITE NOT SPECIF 12/01/2019 JEANIE MERINO MD, Ot R41.82 ALTERED MENTAL STATUS, UNSPECIFIED 12/01/2019 JEANIE MERINO MD Ot Z66 DO NOT RESUSCITATE 12/01/2019 JEANIE MERINO MD, Ot Z86.19 PERSONAL HISTORY OF OTHER INFECTIOUS AND 12/01/2019 JEANIE MERINO MD, Ot Z86.73 PRSNL HX OF TIA (TIA), AND CEREB INFRC W 12/01/2019 JEANIE MERINO MD, Ot Z87.19 PERSONAL HISTORY OF OTHER DISEASES OF TH 12/01/2019 JEANIE MERINO MD, Ot Z87.442 PERSONAL HISTORY OF URINARY CALCULI 12/01/2019 JEANIE MERINO MD, Ot Z87.820 PERSONAL HISTORY OF TRAUMATIC BRAIN INJU 12/01/2019 JEANIE MERINO MD, Ot D63.8 ANEMIA IN OTHER CHRONIC DISEASES CLASSIF 12/01/2019 JEANIE MERINO MD, Ot E11.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 12/01/2019 JEANIE MERINO MD, Ot E11.65 TYPE 2 DIABETES MELLITUS WITH HYPERGLYCE 12/01/2019 JEANIE MERINO MD Ot E86.0 DEHYDRATION 12/01/2019 SANDNESS MD, JEANIE M Ot F15.10 OTHER STIMULANT ABUSE, UNCOMPLICATED 12/01/2019 JEANIE MERINO MD Ot F31.9 BIPOLAR DISORDER, UNSPECIFIED 12/01/2019 JEANIE MERINO MD Ot F41.9 ANXIETY DISORDER, UNSPECIFIED 12/01/2019 JEANIE MERINO MD Ot G40.909 EPILEPSY, UNSP, NOT INTRACTABLE, WITHOUT 12/01/2019 JEANIE MERINO MD Ot I12.9 HYPERTENSIVE CHRONIC KIDNEY DISEASE W ST 12/01/2019 JEANIE MERINO MD Ot I25.10 ATHSCL HEART DISEASE OF [place] CORONARY 12/01/2019 JEANIE MERINO MD Ot I25.2 OLD MYOCARDIAL INFARCTION 12/01/2019 JEANIE MERINO MD Ot I42.9 CARDIOMYOPATHY, UNSPECIFIED 12/01/2019 JEANIE MERINO MD, Ot J44.9 CHRONIC OBSTRUCTIVE PULMONARY DISEASE, U 12/01/2019 JEANIE MERINO MD Ot K21.9 GASTRO-ESOPHAGEAL REFLUX DISEASE WITHOUT 12/01/2019 JEANIE MERINO MD Ot M19.91 PRIMARY OSTEOARTHRITIS, UNSPECIFIED SITE 12/01/2019 JEANIE MERINO MD Ot M54.9 DORSALGIA, UNSPECIFIED 12/01/2019 JEANIE MERINO MD Ot N17.9 ACUTE KIDNEY FAILURE, UNSPECIFIED 12/01/2019 JEANIE MERINO MD Ot N18.9 CHRONIC KIDNEY DISEASE, UNSPECIFIED 12/01/2019 JEANIE MERINO MD Ot N26.1 ATROPHY OF KIDNEY (TERMINAL) 12/01/2019 JEANIE EMRINO MD Ot N39.0 URINARY TRACT INFECTION, SITE NOT SPECIF 12/01/2019 JEANIE MERINO MD Ot R41.82 ALTERED MENTAL STATUS, UNSPECIFIED 12/01/2019 JEANIE MERINO MD Ot Z66 DO NOT RESUSCITATE 12/01/2019 JEANIE MERINO MD Ot Z86.19 PERSONAL HISTORY OF OTHER INFECTIOUS AND 12/01/2019 JEANIE MERINO MD Ot Z86.73 PRSNL HX OF TIA (TIA), AND CEREB INFRC W 12/01/2019 JEANIE MERINO MD Ot Z87.19 PERSONAL HISTORY OF OTHER DISEASES OF TH 12/01/2019 JEANIE MERINO MD, Ot Z87.442 PERSONAL HISTORY OF URINARY CALCULI 12/01/2019 JEANIE MERINO MD, Ot Z87.820 PERSONAL HISTORY OF TRAUMATIC BRAIN INJU 12/01/2019 JEANIE MERINO MD Ot D63.8 ANEMIA IN OTHER CHRONIC DISEASES CLASSIF 12/01/2019 JEANIE MERINO MD Ot E11.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 12/01/2019 JEANIE MERINO MD Ot E11.65 TYPE 2 DIABETES MELLITUS WITH HYPERGLYCE 12/01/2019 JEANIE MERINO MD Ot E86.0 DEHYDRATION 12/01/2019 JEANIE MERINO MD Ot F15.10 OTHER STIMULANT ABUSE, UNCOMPLICATED 12/01/2019 JEANIE MERINO MD Ot F31.9 BIPOLAR DISORDER, UNSPECIFIED 12/01/2019 JEANIE MERINO MD, Ot F41.9 ANXIETY DISORDER, UNSPECIFIED 12/01/2019 JEANIE MERINO MD Ot G40.909 EPILEPSY, UNSP, NOT INTRACTABLE, WITHOUT 12/01/2019 JEANIE MERINO MD Ot I12.9 HYPERTENSIVE CHRONIC KIDNEY DISEASE W ST 12/01/2019 JEANIE MERINO MD Ot I25.10 ATHSCL HEART DISEASE OF [place] CORONARY 12/01/2019 JEANIE MERINO MD Ot I25.2 OLD MYOCARDIAL INFARCTION 12/01/2019 JEANIE MERINO MD Ot I42.9 CARDIOMYOPATHY, UNSPECIFIED 12/01/2019 JEANIE MEIRNO MD Ot J44.9 CHRONIC OBSTRUCTIVE PULMONARY DISEASE, U 12/01/2019 JEANIE MERINO MD Ot K21.9 GASTRO-ESOPHAGEAL REFLUX DISEASE WITHOUT 12/01/2019 JEANIE MERINO MD Ot M19.91 PRIMARY OSTEOARTHRITIS, UNSPECIFIED SITE 12/01/2019 JEANIE MERINO MD Ot M54.9 DORSALGIA, UNSPECIFIED 12/01/2019 JEANIE MERINO MD Ot N17.9 ACUTE KIDNEY FAILURE, UNSPECIFIED 12/01/2019 JEANIE MERINO MD Ot N18.9 CHRONIC KIDNEY DISEASE, UNSPECIFIED 12/01/2019 JEANIE MERINO MD Ot N26.1 ATROPHY OF KIDNEY (TERMINAL) 12/01/2019 JEANIE MERINO MD, Ot N39.0 URINARY TRACT INFECTION, SITE NOT SPECIF 12/01/2019 JEANIE MERINO MD, Ot R41.82 ALTERED MENTAL STATUS, UNSPECIFIED 12/01/2019 JEANIE MERINO MD Ot Z66 DO NOT RESUSCITATE 12/01/2019 JEANIE MERINO MD, Ot Z86.19 PERSONAL HISTORY OF OTHER INFECTIOUS AND 12/01/2019 JEANIE MERINO MD Ot Z86.73 PRSNL HX OF TIA (TIA), AND CEREB INFRC W 12/01/2019 JEANIE MERINO MD, Ot Z87.19 PERSONAL HISTORY OF OTHER DISEASES OF TH 12/01/2019 JEANIE MERINO MD, Ot Z87.442 PERSONAL HISTORY OF URINARY CALCULI 12/01/2019 JEANIE MERINO MD, Ot Z87.820 PERSONAL HISTORY OF TRAUMATIC BRAIN INJU 12/01/2019 JEANIE MERINO MD Ot D63.8 ANEMIA IN OTHER CHRONIC DISEASES CLASSIF 12/01/2019 JEANIE MERINO MD Ot E11.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 12/01/2019 JEANIE MERINO MD Ot E11.65 TYPE 2 DIABETES MELLITUS WITH HYPERGLYCE 12/01/2019 JEANIE MERINO MD Ot E86.0 DEHYDRATION 12/01/2019 JEANIE MERINO MD Ot F15.10 OTHER STIMULANT ABUSE, UNCOMPLICATED 12/01/2019 JEANIE MERINO MD Ot F31.9 BIPOLAR DISORDER, UNSPECIFIED 12/01/2019 JEANIE MERINO MD Ot F41.9 ANXIETY DISORDER, UNSPECIFIED 12/01/2019 JEANIE MERINO MD Ot G40.909 EPILEPSY, UNSP, NOT INTRACTABLE, WITHOUT 12/01/2019 JEANIE MERINO MD Ot I12.9 HYPERTENSIVE CHRONIC KIDNEY DISEASE W ST 12/01/2019 JEANIE MERINO MD Ot I25.10 ATHSCL HEART DISEASE OF [place] CORONARY 12/01/2019 JEANIE MERINO MD Ot I25.2 OLD MYOCARDIAL INFARCTION 12/01/2019 JEANIE MERINO MD Ot I42.9 CARDIOMYOPATHY, UNSPECIFIED 12/01/2019 JEANIE MERINO MD Ot J44.9 CHRONIC OBSTRUCTIVE PULMONARY DISEASE, U 12/01/2019 JEANIE MERINO MD, Ot K21.9 GASTRO-ESOPHAGEAL REFLUX DISEASE WITHOUT 12/01/2019 JEANIE MERINO MD, Ot M19.91 PRIMARY OSTEOARTHRITIS, UNSPECIFIED SITE 12/01/2019 JEANIE MERINO MD, Ot M54.9 DORSALGIA, UNSPECIFIED 12/01/2019 JEANIE MERINO MD, Ot N17.9 ACUTE KIDNEY FAILURE, UNSPECIFIED 12/01/2019 JEANIE MERINO MD, Ot N18.9 CHRONIC KIDNEY DISEASE, UNSPECIFIED 12/01/2019 JEANIE MERINO MD, Ot N26.1 ATROPHY OF KIDNEY (TERMINAL) 12/01/2019 JEANIE MERINO MD, Ot N39.0 URINARY TRACT INFECTION, SITE NOT SPECIF 12/01/2019 JEANIE MERINO MD, Ot R41.82 ALTERED MENTAL STATUS, UNSPECIFIED 12/01/2019 JEANIE MERINO MD, Ot Z66 DO NOT RESUSCITATE 12/01/2019 JEANIE MERINO MD, Ot Z86.19 PERSONAL HISTORY OF OTHER INFECTIOUS AND 12/01/2019 JEANIE MERINO MD, Ot Z86.73 PRSNL HX OF TIA (TIA), AND CEREB INFRC W 12/01/2019 JEANIE MERINO MD, Ot Z87.19 PERSONAL HISTORY OF OTHER DISEASES OF TH 12/01/2019 JEANIE MERINO MD, Ot Z87.442 PERSONAL HISTORY OF URINARY CALCULI 12/01/2019 JEANIE MERINO MD, Ot Z87.820 PERSONAL HISTORY OF TRAUMATIC BRAIN INJU 12/02/2019 JEANIE MERINO MD, Ot D63.8 ANEMIA IN OTHER CHRONIC DISEASES CLASSIF 12/02/2019 JEANIE MERINO MD, Ot E11.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 12/02/2019 JEANIE MERINO MD, Ot E11.65 TYPE 2 DIABETES MELLITUS WITH HYPERGLYCE 12/02/2019 JEANIE MERINO MD, Ot E86.0 DEHYDRATION 12/02/2019 JEANIE MERINO MD, Ot F15.10 OTHER STIMULANT ABUSE, UNCOMPLICATED 12/02/2019 JEANIE MERINO MD, Ot F31.9 BIPOLAR DISORDER, UNSPECIFIED 12/02/2019 SANDNESS MD, JEANIE M Ot F41.9 ANXIETY DISORDER, UNSPECIFIED 12/02/2019 JEANIE MERINO MD Ot G40.909 EPILEPSY, UNSP, NOT INTRACTABLE, WITHOUT 12/02/2019 JEANIE MERINO MD Ot I12.9 HYPERTENSIVE CHRONIC KIDNEY DISEASE W ST 12/02/2019 JEANIE MERINO MD, Ot I25.10 ATHSCL HEART DISEASE OF [place] CORONARY 12/02/2019 JEANIE MERINO MD, Ot I25.2 OLD MYOCARDIAL INFARCTION 12/02/2019 JEANIE MERINO MD Ot I42.9 CARDIOMYOPATHY, UNSPECIFIED 12/02/2019 JEANIE MERINO MD, Ot J44.9 CHRONIC OBSTRUCTIVE PULMONARY DISEASE, U 12/02/2019 JEANIE MERINO MD, Ot K21.9 GASTRO-ESOPHAGEAL REFLUX DISEASE WITHOUT 12/02/2019 JEANIE MERINO MD Ot M19.91 PRIMARY OSTEOARTHRITIS, UNSPECIFIED SITE 12/02/2019 JEANIE MERINO MD Ot M54.9 DORSALGIA, UNSPECIFIED 12/02/2019 JEANIE MERINO MD Ot N17.9 ACUTE KIDNEY FAILURE, UNSPECIFIED 12/02/2019 JEANIE MERINO MD Ot N18.9 CHRONIC KIDNEY DISEASE, UNSPECIFIED 12/02/2019 JEANIE MERINO MD Ot N26.1 ATROPHY OF KIDNEY (TERMINAL) 12/02/2019 JEANIE MERINO MD Ot N39.0 URINARY TRACT INFECTION, SITE NOT SPECIF 12/02/2019 JEANIE MERINO MD Ot R41.82 ALTERED MENTAL STATUS, UNSPECIFIED 12/02/2019 JEANIE MERINO MD Ot Z66 DO NOT RESUSCITATE 12/02/2019 JEANIE MERINO MD Ot Z86.19 PERSONAL HISTORY OF OTHER INFECTIOUS AND 12/02/2019 JEANIE MERINO MD Ot Z86.73 PRSNL HX OF TIA (TIA), AND CEREB INFRC W 12/02/2019 JEANIE MERINO MD, Ot Z87.19 PERSONAL HISTORY OF OTHER DISEASES OF TH 12/02/2019 JEANIE MERINO MD Ot Z87.442 PERSONAL HISTORY OF URINARY CALCULI 12/02/2019 JEANIE MERINO MD Ot Z87.820 PERSONAL HISTORY OF TRAUMATIC BRAIN INJU 12/02/2019 JEANIE MERINO MD Ot D63.8 ANEMIA IN OTHER CHRONIC DISEASES CLASSIF 12/02/2019 JEANIE MERINO MD Ot E11.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 12/02/2019 JEANIE MERINO MD Ot E11.65 TYPE 2 DIABETES MELLITUS WITH HYPERGLYCE 12/02/2019 JEANIE MERINO MD Ot E86.0 DEHYDRATION 12/02/2019 JEANIE MERINO MD Ot F15.10 OTHER STIMULANT ABUSE, UNCOMPLICATED 12/02/2019 JEANIE MERINO MD Ot F31.9 BIPOLAR DISORDER, UNSPECIFIED 12/02/2019 JEANIE MERINO MD Ot F41.9 ANXIETY DISORDER, UNSPECIFIED 12/02/2019 JEANIE MERINO MD Ot G40.909 EPILEPSY, UNSP, NOT INTRACTABLE, WITHOUT 12/02/2019 JEANIE MERINO MD Ot I12.9 HYPERTENSIVE CHRONIC KIDNEY DISEASE W ST 12/02/2019 JEANIE MERINO MD Ot I25.10 ATHSCL HEART DISEASE OF [place] CORONARY 12/02/2019 JEANIE MERINO MD Ot I25.2 OLD MYOCARDIAL INFARCTION 12/02/2019 JEANIE MERINO MD Ot I42.9 CARDIOMYOPATHY, UNSPECIFIED 12/02/2019 JEANIE MERINO MD Ot J44.9 CHRONIC OBSTRUCTIVE PULMONARY DISEASE, U 12/02/2019 JEANIE MERINO MD Ot K21.9 GASTRO-ESOPHAGEAL REFLUX DISEASE WITHOUT 12/02/2019 JEANIE MERINO MD Ot M19.91 PRIMARY OSTEOARTHRITIS, UNSPECIFIED SITE 12/02/2019 JEANIE MERINO MD Ot M54.9 DORSALGIA, UNSPECIFIED 12/02/2019 JEANIE MERINO MD Ot N17.9 ACUTE KIDNEY FAILURE, UNSPECIFIED 12/02/2019 JEANIE MERINO MD Ot N18.9 CHRONIC KIDNEY DISEASE, UNSPECIFIED 12/02/2019 JEANIE MERINO MD Ot N26.1 ATROPHY OF KIDNEY (TERMINAL) 12/02/2019 JEANIE MERINO MD Ot N39.0 URINARY TRACT INFECTION, SITE NOT SPECIF 12/02/2019 JEANIE MERINO MD Ot R41.82 ALTERED MENTAL STATUS, UNSPECIFIED 12/02/2019 JEANIE MERINO MD Ot Z66 DO NOT RESUSCITATE 12/02/2019 JEANIE MERINO MD Ot Z86.19 PERSONAL HISTORY OF OTHER INFECTIOUS AND 12/02/2019 JEANIE MERINO MD, Ot Z86.73 PRSNL HX OF TIA (TIA), AND CEREB INFRC W 12/02/2019 JEANIE MERINO MD, Ot Z87.19 PERSONAL HISTORY OF OTHER DISEASES OF TH 12/02/2019 JEANIE MERINO MD, Ot Z87.442 PERSONAL HISTORY OF URINARY CALCULI 12/02/2019 JEANIE MERINO MD, Ot Z87.820 PERSONAL HISTORY OF TRAUMATIC BRAIN INJU 12/03/2019 JEANIE MERINO MD, Ot D63.8 ANEMIA IN OTHER CHRONIC DISEASES CLASSIF 12/03/2019 JEANIE MERINO MD Ot E11.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 12/03/2019 JEANIE MERINO MD Ot E11.65 TYPE 2 DIABETES MELLITUS WITH HYPERGLYCE 12/03/2019 JEANIE MERINO MD Ot E86.0 DEHYDRATION 12/03/2019 JEANIE MERINO MD Ot F15.10 OTHER STIMULANT ABUSE, UNCOMPLICATED 12/03/2019 JEANIE MERINO MD Ot F31.9 BIPOLAR DISORDER, UNSPECIFIED 12/03/2019 JEANIE MERINO MD Ot F41.9 ANXIETY DISORDER, UNSPECIFIED 12/03/2019 JEANIE MERINO MD Ot G40.909 EPILEPSY, UNSP, NOT INTRACTABLE, WITHOUT 12/03/2019 JEANIE MERINO MD Ot I12.9 HYPERTENSIVE CHRONIC KIDNEY DISEASE W ST 12/03/2019 JEANIE MERINO MD Ot I25.10 ATHSCL HEART DISEASE OF [place] CORONARY 12/03/2019 JEANIE MERINO MD Ot I25.2 OLD MYOCARDIAL INFARCTION 12/03/2019 JEANIE MERINO MD Ot I42.9 CARDIOMYOPATHY, UNSPECIFIED 12/03/2019 JEANIE MERINO MD, Ot J44.9 CHRONIC OBSTRUCTIVE PULMONARY DISEASE, U 12/03/2019 JEANIE MERINO MD Ot K21.9 GASTRO-ESOPHAGEAL REFLUX DISEASE WITHOUT 12/03/2019 JEANIE MERINO MD Ot M19.91 PRIMARY OSTEOARTHRITIS, UNSPECIFIED SITE 12/03/2019 JEANIE MERINO MD, Ot M54.9 DORSALGIA, UNSPECIFIED 12/03/2019 JEANIE MERINO MD, Ot N17.9 ACUTE KIDNEY FAILURE, UNSPECIFIED 12/03/2019 JEANIE MERINO MD, Ot N18.9 CHRONIC KIDNEY DISEASE, UNSPECIFIED 12/03/2019 JEANIE MERINO MD, Ot N26.1 ATROPHY OF KIDNEY (TERMINAL) 12/03/2019 JEANIE MERINO MD, Ot N39.0 URINARY TRACT INFECTION, SITE NOT SPECIF 12/03/2019 JEANIE MERINO MD, Ot R41.82 ALTERED MENTAL STATUS, UNSPECIFIED 12/03/2019 JEANIE MERINO MD Ot Z66 DO NOT RESUSCITATE 12/03/2019 JEANIE MERINO MD, Ot Z86.19 PERSONAL HISTORY OF OTHER INFECTIOUS AND 12/03/2019 JEANIE MERINO MD, Ot Z86.73 PRSNL HX OF TIA (TIA), AND CEREB INFRC W 12/03/2019 JEANIE MERINO MD, Ot Z87.19 PERSONAL HISTORY OF OTHER DISEASES OF TH 12/03/2019 JEANIE MERINO MD, Ot Z87.442 PERSONAL HISTORY OF URINARY CALCULI 12/03/2019 JEANIE MERINO MD, Ot Z87.820 PERSONAL HISTORY OF TRAUMATIC BRAIN INJU 12/03/2019 JEANIE MERINO MD, Ot D63.8 ANEMIA IN OTHER CHRONIC DISEASES CLASSIF 12/03/2019 JEANIE MERINO MD Ot E11.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 12/03/2019 JEANIE MERINO MD Ot E11.65 TYPE 2 DIABETES MELLITUS WITH HYPERGLYCE 12/03/2019 JEANIE MERINO MD Ot E86.0 DEHYDRATION 12/03/2019 JEANIE MERINO MD Ot F15.10 OTHER STIMULANT ABUSE, UNCOMPLICATED 12/03/2019 JEANIE MERINO MD Ot F31.9 BIPOLAR DISORDER, UNSPECIFIED 12/03/2019 JEANIE MERINO MD, Ot F41.9 ANXIETY DISORDER, UNSPECIFIED 12/03/2019 JEANIE MERINO MD, Ot G40.909 EPILEPSY, UNSP, NOT INTRACTABLE, WITHOUT 12/03/2019 JEANIE MERINO MD Ot I12.9 HYPERTENSIVE CHRONIC KIDNEY DISEASE W ST 12/03/2019 JEANIE MERINO MD, Ot I25.10 ATHSCL HEART DISEASE OF [place] CORONARY 12/03/2019 JEANIE MERINO MD, Ot I25.2 OLD MYOCARDIAL INFARCTION 12/03/2019 JEANIE MERINO MD, Ot I42.9 CARDIOMYOPATHY, UNSPECIFIED 12/03/2019 JEANIE MERINO MD, Ot J44.9 CHRONIC OBSTRUCTIVE PULMONARY DISEASE, U 12/03/2019 JEANIE MERINO MD, Ot K21.9 GASTRO-ESOPHAGEAL REFLUX DISEASE WITHOUT 12/03/2019 JEANIE MERINO MD, Ot M19.91 PRIMARY OSTEOARTHRITIS, UNSPECIFIED SITE 12/03/2019 JEANIE MERINO MD, Ot M54.9 DORSALGIA, UNSPECIFIED 12/03/2019 JEANIE MERINO MD, Ot N17.9 ACUTE KIDNEY FAILURE, UNSPECIFIED 12/03/2019 JEANIE MERINO MD, Ot N18.9 CHRONIC KIDNEY DISEASE, UNSPECIFIED 12/03/2019 JEANIE MERINO MD, Ot N26.1 ATROPHY OF KIDNEY (TERMINAL) 12/03/2019 JEANIE MERINO MD, Ot N39.0 URINARY TRACT INFECTION, SITE NOT SPECIF 12/03/2019 JEANIE MERINO MD, Ot R41.82 ALTERED MENTAL STATUS, UNSPECIFIED 12/03/2019 JEANIE MERINO MD Ot Z66 DO NOT RESUSCITATE 12/03/2019 JEANIE MERINO MD, Ot Z86.19 PERSONAL HISTORY OF OTHER INFECTIOUS AND 12/03/2019 JEANIE MERINO MD, Ot Z86.73 PRSNL HX OF TIA (TIA), AND CEREB INFRC W 12/03/2019 JEANIE MERINO MD, Ot Z87.19 PERSONAL HISTORY OF OTHER DISEASES OF TH 12/03/2019 JEANIE MERINO MD, Ot Z87.442 PERSONAL HISTORY OF URINARY CALCULI 12/03/2019 JEANIE MERINO MD, Ot Z87.820 PERSONAL HISTORY OF TRAUMATIC BRAIN INJU 12/04/2019 JEANIE MERINO MD, Ot D63.8 ANEMIA IN OTHER CHRONIC DISEASES CLASSIF 12/04/2019 JEANIE MERINO MD, Ot E11.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 12/04/2019 JEANIE MERINO MD Ot E11.65 TYPE 2 DIABETES MELLITUS WITH HYPERGLYCE 12/04/2019 JEANIE MERINO MD Ot E86.0 DEHYDRATION 12/04/2019 JEANIE MERINO MD Ot F15.10 OTHER STIMULANT ABUSE, UNCOMPLICATED 12/04/2019 JEANIE MERINO MD Ot F31.9 BIPOLAR DISORDER, UNSPECIFIED 12/04/2019 JEANIE MERINO MD, Ot F41.9 ANXIETY DISORDER, UNSPECIFIED 12/04/2019 JEANIE MERINO MD Ot G40.909 EPILEPSY, UNSP, NOT INTRACTABLE, WITHOUT 12/04/2019 JEANIE MERINO MD, Ot I12.9 HYPERTENSIVE CHRONIC KIDNEY DISEASE W ST 12/04/2019 JEANIE MERINO MD, Ot I25.10 ATHSCL HEART DISEASE OF [place] CORONARY 12/04/2019 JEANIE MERINO MD, Ot I25.2 OLD MYOCARDIAL INFARCTION 12/04/2019 JEANIE MERINO MD Ot I42.9 CARDIOMYOPATHY, UNSPECIFIED 12/04/2019 JEANIE MERINO MD, Ot J44.9 CHRONIC OBSTRUCTIVE PULMONARY DISEASE, U 12/04/2019 JEANIE MERINO MD Ot K21.9 GASTRO-ESOPHAGEAL REFLUX DISEASE WITHOUT 12/04/2019 JEANIE MERINO MD Ot M19.91 PRIMARY OSTEOARTHRITIS, UNSPECIFIED SITE 12/04/2019 JEANIE MERINO MD, Ot M54.9 DORSALGIA, UNSPECIFIED 12/04/2019 JEANIE MERINO MD Ot N17.9 ACUTE KIDNEY FAILURE, UNSPECIFIED 12/04/2019 JEANIE MERINO MD, Ot N18.9 CHRONIC KIDNEY DISEASE, UNSPECIFIED 12/04/2019 JEANIE MERINO MD, Ot N26.1 ATROPHY OF KIDNEY (TERMINAL) 12/04/2019 JEANIE MERINO MD, Ot N39.0 URINARY TRACT INFECTION, SITE NOT SPECIF 12/04/2019 JEANIE MERINO MD, Ot R41.82 ALTERED MENTAL STATUS, UNSPECIFIED 12/04/2019 JEANIE MERINO MD Ot Z66 DO NOT RESUSCITATE 12/04/2019 JEANIE MERINO MD, Ot Z86.19 PERSONAL HISTORY OF OTHER INFECTIOUS AND 12/04/2019 JEANIE MERINO MD, Ot Z86.73 PRSNL HX OF TIA (TIA), AND CEREB INFRC W 12/04/2019 JEANIE MERINO MD, Ot Z87.19 PERSONAL HISTORY OF OTHER DISEASES OF TH 12/04/2019 JEANIE MERINO MD, Ot Z87.442 PERSONAL HISTORY OF URINARY CALCULI 12/04/2019 JEANIE MERINO MD, Ot Z87.820 PERSONAL HISTORY OF TRAUMATIC BRAIN INJU 12/04/2019 JEANIE MERINO MD Ot A40.8 OTHER STREPTOCOCCAL SEPSIS 12/04/2019 JEANIE MERINO MD, Ot B96.20 UNSP ESCHERICHIA COLI THE CAUSE OF DI 12/04/2019 JEANIE MERINO MD, Ot D63.8 ANEMIA IN OTHER CHRONIC DISEASES CLASSIF 12/04/2019 JEANIE MERINO MD Ot E11.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 12/04/2019 JEANIE MERINO MD Ot E11.65 TYPE 2 DIABETES MELLITUS WITH HYPERGLYCE 12/04/2019 JEANIE MERINO MD Ot E86.0 DEHYDRATION 12/04/2019 JEANIE MERINO MD Ot F15.10 OTHER STIMULANT ABUSE, UNCOMPLICATED 12/04/2019 JEANIE MERINO MD Ot F31.9 BIPOLAR DISORDER, UNSPECIFIED 12/04/2019 JEANIE MERINO MD Ot F41.9 ANXIETY DISORDER, UNSPECIFIED 12/04/2019 JEANIE MERINO MD, Ot G40.909 EPILEPSY, UNSP, NOT INTRACTABLE, WITHOUT 12/04/2019 JEANIE MERINO MD Ot I08.1 RHEUMATIC DISORDERS OF BOTH [place] AND T 12/04/2019 JEANIE MERINO MD Ot I12.9 HYPERTENSIVE CHRONIC KIDNEY DISEASE W ST 12/04/2019 JEANIE MERINO MD, Ot I25.10 ATHSCL HEART DISEASE OF [place] CORONARY 12/04/2019 JEANIE MERINO MD Ot I25.2 OLD MYOCARDIAL INFARCTION 12/04/2019 JEANIE MERINO MD Ot I42.9 CARDIOMYOPATHY, UNSPECIFIED 12/04/2019 JEANIE MERINO MD, Ot J44.9 CHRONIC OBSTRUCTIVE PULMONARY DISEASE, U 12/04/2019 JEANIE MERINO MD, Ot J81.1 CHRONIC PULMONARY EDEMA 12/04/2019 JEANIE MERINO MD, Ot J96.00 ACUTE RESPIRATORY FAILURE, UNSP W HYPOXI 12/04/2019 JEANIE MERINO MD, Ot K21.9 GASTRO-ESOPHAGEAL REFLUX DISEASE WITHOUT 12/04/2019 JEANIE MERINO MD, Ot M19.91 PRIMARY OSTEOARTHRITIS, UNSPECIFIED SITE 12/04/2019 JEANIE MERINO MD, Ot M54.9 DORSALGIA, UNSPECIFIED 12/04/2019 JEANIE MERINO MD, Ot N17.9 ACUTE KIDNEY FAILURE, UNSPECIFIED 12/04/2019 JEANIE MERINO MD, Ot N18.9 CHRONIC KIDNEY DISEASE, UNSPECIFIED 12/04/2019 JEANIE MERINO MD, Ot N26.1 ATROPHY OF KIDNEY (TERMINAL) 12/04/2019 JEANIE MERINO MD, Ot N39.0 URINARY TRACT INFECTION, SITE NOT SPECIF 12/04/2019 JEANIE MERINO MD, Ot R41.82 ALTERED MENTAL STATUS, UNSPECIFIED 12/04/2019 JEANIE MERINO MD Ot Z66 DO NOT RESUSCITATE 12/04/2019 JEANIE MERINO MD, Ot Z86.19 PERSONAL HISTORY OF OTHER INFECTIOUS AND 12/04/2019 JEANIE MERINO MD, Ot Z86.73 PRSNL HX OF TIA (TIA), AND CEREB INFRC W 12/04/2019 JEANIE MERINO MD, Ot Z87.19 PERSONAL HISTORY OF OTHER DISEASES OF TH 12/04/2019 JEANIE MERINO MD, Ot Z87.442 PERSONAL HISTORY OF URINARY CALCULI 12/04/2019 JEANIE MERINO MD, Ot Z87.820 PERSONAL HISTORY OF TRAUMATIC BRAIN INJU 12/04/2019 JEANIE MERINO MD, Ot Z87.891 PERSONAL HISTORY OF NICOTINE DEPENDENCE Procedures Code Description Performed By Per formed On 38.93 VENO US CATHETERIZATION NEC 02/05/2010 53.69 OTH OPEN REP OTH HERNIA OF ANTER ABD W 02/05/2010 Urology Tom Mason 09/16/2012 General S Kido, [place] 10/28/2012 43764 ROUT INE VENIPUNCTURE 12/09/2012 05378 CMP 12/09/2012 11849 PHEN OBARBITAL 12/09/2012 39167 TSH 12/09/2012 94108 CBC 12/09/2012 PODIATRY W ILDE, CURT 03/02/2013 37.22 LEFT HEART CARDIAC CATH 05/10/2013 88.53 LT H EART ANGIOCARDIOGRAM 05/10/2013 88.56 MISAEL DENEEN ARTERIOGR-2 CATH 05/10/2013 45217 ECHO 2D 05/21/2013 86.04 OTHE R SKIN SUBQ I D 06/20/2013 Physical W [facility], Mtc 06/29/[address] A BDOMEN & PELVIS W/ & W/O CONTRAST 12/10/2013 49685 OXIMETRY 12/10/2013 13409 ROUT INE VENIPUNCTURE 08/05/2014 09202 CBC 08/05/2014 [id number] GF R CALC (RESULT ONLY) 08/05/2014 39513 CMP 08/05/2014 82407 OXIMETRY 11/28/2014 [id number] BENJAMIN DOL PER 15 MG, INJ KETOROLAC TROMETHAMINE 11/28/2014 66553 EAR LAVAGE 02/02/2015 [id number] IN SERTION OF INFUSION DEV INTO SUP VENA 05/15/2018 [id number] IN SERTION OF ENDOTRACHEAL AIRWAY INTO TR 07/02/2019 [id number] RE SPIRATORY VENTILATION, LESS THAN 24 CO 07/02/2019 [id number] IN SERTION OF ENDOTRACHEAL AIRWAY INTO TR 08/26/2019 [id number] RE SPIRATORY VENTILATION, LESS THAN 24 CO 08/26/2019 [id number] RE SPIRATORY VENTILATION, 24- 96 CONSECUTI 08/26/2019 [id number] IN SERTION OF INFUSION DEV INTO SUP VENA 09/15/2019 [id number] IN SERTION OF TIVAD INTO CHEST SUBCU/FASC 09/15/2019 [id number] IN SERTION OF ENDOTRACHEAL AIRWAY INTO TR 09/17/2019 [id number] RE SPIRATORY VENTILATION, LESS THAN 24 CO [...] culture - 08/05/16 21:25 Bacterial urine culture [id number] NRG COLONY COUNT >100,000/ML NRG FTX;REPORTABLE SENSITIVITY [...] ncentration <= NRG Nitrofurantoin susceptibility test by ky nimum inhibitory concentration <= NRG Aztreonam susceptibility test by minimum inhibitory co ncentration <= NRG Extended spectrum beta lactamase (ESBL) producing bacteria susceptibility test by minimum inhibitory concentration - NRG Influenza virus A and B antigen detectio n - 11/23/16 14:40 FLU RESULT NEGATIVE FOR INFLUENZA A AND B ANTIGENS BY IA NRG Complete blood count (CBC) with automate [...] mg/dL 0.1-1.0 Serum or plasma alkaline phosphatase lorezno surement (enzymatic activity/volume) 78 U/L 40-136 Serum [...] 7-25 CREATININE 1.57 mg/dL 0.50-1.05 eGFR NON-AFR. [facility] 36 mL/min/1.73m2 > OR = 60 eGFR [...] culture - 07/02/19 11:04 Bacterial urine culture [id number] NRG COLONY COUNT >100,000/ML NRG FTX;REPORTABLE SUSCEPTIBILITIES [...] OF GROWTH FEW NRG Bacterial sputum culture [id number] NRG Dirithromycin susceptibility test by dis k [...] < mg/dL <10 PHENOBARBITAL - 08/12/19 05:50 [id number] 11.7 % 15.0-40.0 Urine drug screening test [...] 0.0-0.1 Whole blood basic metabolic panel - 11/0 10/31 03:25 Serum or plasma sodium measurement [...] culture - 08/15/19 01:10 Bacterial urine culture [id number] NRG COLONY COUNT 80,000 CFU/ML NRG FTX;REPORTABLE [...] ncentration <= NRG Nitrofurantoin susceptibility test by ky nimum inhibitory concentration 64 NRG Amoxicillin and [...] 103 mmol/L 98-107 Carbon dioxide 22 mmol/L -32 Serum or plasma anion gap determination (moles/volume) [...] 188.3 pg/mL <100.0 PHENOBARBITAL - 08/26/19 03:55 [id number] 8.0 % 15.0-40.0 Influenza virus A and [...] OF GROWTH Isolated NRG Bacterial blood culture [id number] NRG Methicillin resistant Staphylococcus aur eus (MRSA) [...] Whole blood basic metabolic panel - 02/28 03:25 Serum or plasma sodium measurement (moles/volume) [...] by glucometer (mas s/volume) 80 mg/dL 70-110 Complete blood count (CBC) with automate d white blood cell (WBC) differential - 10/09/19 14:30 Blood leukocytes automated count (number/volume) 4.7 10*3/uL 4.3-11.0 Blood erythrocytes automated count (number/volume) 3.43 10*6/uL 4.35-5.85 Venous blood hemoglobin measurement (mass/volume) [...] 10.0- 14.5 Automated blood platelet count (count/volume) 479 10*3/uL 130-400 Automated blood platelet mean volume measurement 9.8 [foz_us] 7.4-10.4 Automated blood neutrophils/100 leukocytes 45 % 42-75 Automated blood lymphocytes/100 leukocytes 41 [...] 0.0 10*3/uL 0.0-0.1 Comprehensive metabolic panel - 10/09/19 14:30 Serum or plasma sodium measurement (moles/volume) 139 mmol/L 135-145 Serum or plasma potassium measurement (moles/volume) 5.5 mmol/L 3.6-5.0 Serum or plasma chloride measurement (moles/volume) 111 mmol/L 98-107 Carbon dioxide 18 mmol/L 21-32 Serum or plasma anion gap determination (moles/volume) 10 mmol/L 5-14 Serum or plasma urea nitrogen measurement (mass/volume ) 66 mg/dL 7-18 Serum or plasma creatinine measurement (mass/volume) 1.42 mg/dL 0.60-1.30 Serum or plasma urea nitrogen/creatinine mass ratio 46 NRG Serum or plasma creatinine measurement w ith calculation of estimated glomerular filtration rate 38 NRG Serum or plasma glucose measurement (mass/volume) 98 mg/dL 70-105 Serum or plasma calcium measurement (mass/volume) 8.6 mg/dL 8.5-10.1 Serum or plasma total bilirubin measurement (mass/volu me) 0.1 mg/dL 0.1-1.0 Serum or plasma alkaline phosphatase lorenzo surement (enzymatic activity/volume) 69 U/L 40-136 Serum or plasma aspartate aminotransfera se measurement (enzymatic activity/volume) 12 U/L 5-34 Serum or plasma alanine aminotransferase measurement (enzymatic activity/volume) 16 U/L 0-55 Serum or plasma protein measurement (mass/volume) 6.9 g/dL 6.4-8.2 Serum or plasma albumin measurement (mass/volume) 4.0 g/dL 3.2-4.5 CALCIUM CORRECTED 8.6 mg/dL 8.5-10.1 Complete urinalysis with reflex to cultu re - 10/09/19 16:01 Urine color determination YELLOW NRG Urine clarity [...] RARE NRG Urine drug screening test - 10/09/19 16: 01 Urine phencyclidine detection by screening method NEGATIVE [...] N EGATIVE Screening urine tricyclic antidepressants detection POSITIVE NEGATIVE Urine methadone detection by screening method NEGA TIVE NEGATIVE Urine oxycodone detection NEGATIVE NEGA TIVE Urine propoxyphene detection NEGATIVE N EGATIVE Complete blood count (CBC) with automate d white blood cell (WBC) differential - 10/27/19 21:48 Blood leukocytes automated count (number/volume) 13.3 10*3/uL 4.3-11.0 Blood erythrocytes automated count (number/volume) 3.36 10*6/uL 4.35-5.85 Venous blood hemoglobin measurement (mass/volume) 9.6 g/dL 11.5-16.0 Blood hematocrit (volume fraction) 30 [...] 130-400 Automated blood platelet mean volume measurement 9.6 [foz_us] 7.4-10.4 Automated blood neutrophils/100 leukocytes 81 % 42-75 Automated blood lymphocytes/100 leukocytes 13 % 12-44 Blood monocytes/100 leukocytes 3 % 0-12 Automated blood eosinophils/100 leukocytes 2 % 0-10 Automated blood basophils/100 leukocytes 0 % 0-10 Blood neutrophils automated count (number/volume) 10.7 10*3 1.8-7.8 Blood lymphocytes automated count (number/volume) 1.8 10*3 1.0-4.0 Blood monocytes automated count (number/volume) 0. 4 10*3 0.0-1.0 Automated eosinophil count 0.3 10*3/uL 0 .0-0.3 Automated blood basophil count (count/volume) 0.0 10*3/uL 0.0-0.1 Comprehensive metabolic panel - 10/27/19 21:48 Serum or plasma sodium measurement (moles/volume) 137 mmol/L 135-145 Serum or plasma potassium measurement (moles/volume) 4.0 mmol/L 3.6-5.0 Serum or plasma chloride measurement (moles/volume) 105 mmol/L 98-107 Carbon dioxide 22 mmol/L 21-32 Serum or plasma anion gap determination (moles/volume) 10 mmol/L 5-14 Serum or plasma urea nitrogen measurement (mass/volume ) 19 mg/dL 7-18 Serum or plasma creatinine measurement (mass/volume) 1.25 mg/dL 0.60-1.30 Serum or plasma urea nitrogen/creatinine mass ratio 15 NRG Serum or plasma creatinine measurement w ith calculation of estimated glomerular filtration rate 44 NRG Serum or plasma glucose measurement (mass/volume) 158 mg/dL 70-105 Serum or plasma calcium measurement (mass/volume) 8.4 mg/dL 8.5-10.1 Serum or plasma total bilirubin measurement (mass/volu me) 0.2 mg/dL 0.1-1.0 Serum or plasma alkaline phosphatase lorenzo surement (enzymatic activity/volume) 68 U/L 40-136 Serum or plasma aspartate aminotransfera se measurement (enzymatic activity/volume) 11 U/L 5-34 Serum or plasma alanine aminotransferase measurement (enzymatic activity/volume) 19 U/L 0-55 Serum or plasma protein measurement (mass/volume) 6.7 g/dL 6.4-8.2 Serum or plasma albumin measurement (mass/volume) 3.6 g/dL 3.2-4.5 CALCIUM CORRECTED 8.7 mg/dL 8.5-10.1 Serum or plasma creatine kinase measurem ent (enzymatic activity/volume) - 10/27/19 21:48 Serum or plasma creatine kinase measurem ent (enzymatic activity/volume) 56 U/L 29-168 Serum or plasma ethanol measurement (mas s/volume) - 10/27/19 21:48 Serum or plasma ethanol measurement (mass/volume) < mg/dL <10 Bacterial blood culture - 10/27/19 21:48 Bacterial blood culture NG NRG Complete urinalysis with reflex to cultu re - 10/27/19 22:30 Urine color determination YELLOW NRG Urine clarity determination CLEAR NR G Urine pH measurement by test strip 7.0 5-9 Specific gravity of urine by test strip 1.010 1.016-1.022 Urine protein assay by test strip, semi-quantitative NEGATIVE NEGATIVE Urine glucose detection by automated test strip TR AILEEN NEGATIVE Erythrocytes detection in urine sediment by [...] in urine sediment by light johana roscopy 0-2 NRG Urine drug screening test - 10/27/19 22: 30 Urine phencyclidine detection by screening method NEGATIVE [...] TIVE Urine propoxyphene detection NEGATIVE N EGATIVE Influenza virus A and B antigen detectio n - 10/27/19 22:40 FLU RESULT NEGATIVE FOR INFLUENZA A AND B ANTIGENS BY IA NRG Bacterial blood culture - 10/27/19 22:42 QUANTITY OF GROWTH . NRG Bacterial blood culture SEE COMMEN NRG Complete blood count (CBC) with automate d white blood cell (WBC) differential - 11/28/19 10:37 Blood leukocytes automated count (number/volume) 5.5 10*3/uL 4.3-11.0 Blood erythrocytes automated count (number/volume) 3.01 10*6/uL 4.35-5.85 Venous blood hemoglobin measurement (mass/volume) 8.5 g/dL 11.5-16.0 Blood hematocrit (volume fraction) 26 % 35-52 Automated erythrocyte mean corpuscular volume 87 [ foz_us] 80-99 Automated erythrocyte mean corpuscular h emoglobin (mass per erythrocyte) 28 pg 25-34 Automated erythrocyte mean corpuscular h emoglobin concentration measurement (mass/volume) 32 g/dL 32-36 Automated erythrocyte distribution width ratio 14. 9 % 10.0- 14.5 Automated blood platelet count (count/volume) 195 10*3/uL 130-400 Automated blood platelet mean volume measurement 10.1 [foz_us] 7.4-10.4 Automated blood neutrophils/100 leukocytes 69 % 42-75 Automated blood lymphocytes/100 leukocytes 21 % 12-44 Blood monocytes/100 leukocytes 9 % 0-12 Automated blood eosinophils/100 leukocytes 1 % 0-10 Automated blood basophils/100 leukocytes 0 % 0-10 Blood neutrophils automated count (number/volume) 3.8 10*3 1.8-7.8 Blood lymphocytes automated count (number/volume) 1.1 10*3 1.0-4.0 Blood monocytes automated count (number/volume) 0. 5 10*3 0.0-1.0 Automated eosinophil count 0.0 10*3/uL 0 .0-0.3 Automated blood basophil count (count/volume) 0.0 10*3/uL 0.0-0.1 Blood lactic acid measurement (moles/vol ume) - 11/28/19 10:37 Blood lactic acid measurement (moles/volume) 0.69 mmol/L 0.50-2.00 PT panel in platelet poor plasma by coag ulation assay - 11/28/19 10:37 Prothrombin time (PT) in platelet poor plasma by coagu lation assay 14.7 s 12.2-14.7 INR in platelet poor plasma or blood by coagulation as say 1.1 0.8-1.4 Activated partial thromboplastin time (a PTT) in platelet poor plasma bycoagulation assay - 11/28/19 10:37 Activated partial thromboplastin time (a PTT) in platelet poor plasma bycoagulation assay 46 s 24-35 Influenza virus A and B antigen detectio n - 11/28/19 10:37 FLU RESULT NEGATIVE FOR INFLUENZA A AND B ANTIGENS BY IA [facility] [place] Comprehensive metabolic panel - 11/28/19 10:37 Serum or plasma sodium measurement (moles/volume) 134 mmol/L 135-145 Serum or plasma potassium measurement (moles/volume) 4.4 mmol/L 3.6-5.0 Serum or plasma chloride measurement (moles/volume) 104 mmol/L 98-107 Carbon dioxide 18 mmol/L 21-32 Serum or plasma anion gap determination (moles/volume) 12 mmol/L 5-14 Serum or plasma urea nitrogen measurement (mass/volume ) 55 mg/dL 7-18 Serum or plasma creatinine measurement (mass/volume) 2.60 mg/dL 0.60-1.30 Serum or plasma urea nitrogen/creatinine mass ratio 21 NR Serum or plasma creatinine measurement w ith calculation of estimated glomerular filtration rate 19 [facility] [place] Serum or plasma glucose measurement (mass/volume) 126 mg/dL 70-105 Serum or plasma calcium measurement (mass/volume) 8.2 mg/dL 8.5-10.1 Serum or plasma total bilirubin measurement (mass/volu me) 0.2 mg/dL 0.1-1.0 Serum or plasma alkaline phosphatase lorenzo surement (enzymatic activity/volume) 62 U/L 40-136 Serum or plasma aspartate aminotransfera se measurement (enzymatic activity/volume) 14 U/L 5-34 Serum or plasma alanine aminotransferase measurement (enzymatic activity/volume) 12 U/L 0-55 Serum or plasma protein measurement (mass/volume) 6.8 g/dL 6.4-8.2 Serum or plasma albumin measurement (mass/volume) 3.6 g/dL 3.2-4.5 CALCIUM CORRECTED 8.5 mg/dL 8.5-10.1 Lipase - 11/28/19 10:37 Lipase 24 U/L 8-78 Serum or plasma C reactive protein measu rement (mass/volume) - 11/28/19 10:37 Serum or plasma C reactive protein measurement (mass/v olume) 21.96 mg/dL 0.00-0.50 Bacterial blood culture - 11/28/19 10:37 FREE TEXT EXTERNAL (STREPTOCOCCUS GORDONII) [facility] [place] QUANTITY OF GROWTH Isolated NRG Bacterial blood culture [id number] NR FREE TEXT ENTRY 2 SUSCEPTIBILITY REPORTED 12/02/19 11:35 NRG FREE TEXT ENTRY 3 BY RML NRG Bacterial blood culture - 11/28/19 11:05 FREE TEXT EXTERNAL PROBABLE STREPTOCOCCUS GORDONII NRG QUANTITY OF GROWTH Isolated NRG Bacterial blood culture [id number] NR FREE TEXT ENTRY 2 REFER TO PREVIOUS CULTURE FOR NRG FREE TEXT ENTRY 3 SUSCEPTIBILITY NRG Complete urinalysis with reflex to cultu re - 11/28/19 11:20 Urine color determination YELLOW NRG Urine clarity determination CLOUDY NR G Urine pH measurement by test [...] 1.0 Urine leukocyte esterase detection by dipstick 3+ NEGATIVE Automated urine sediment erythrocyte cou nt by microscopy (number/high power field) NONE NRG Automated urine sediment leukocyte count by microscopy (number/high power field) TNTC NRG Bacteria detection in urine sediment by light microsco py LARGE NRG Squamous epithelial cells detection in u rine sediment by light microscopy RARE NRG Crystals detection in urine sediment by light microsco py NONE NRG Casts detection in urine sediment by light microscopy NONE NRG Mucus detection in urine sediment by light microscopy NEGATIVE NRG Complete urinalysis with reflex to culture CULTURE PENDING NRG Urine drug screening test - 11/28/19 11: 20 Urine phencyclidine detection by screening method NEGATIVE [...] N EGATIVE Screening urine tricyclic antidepressants detection POSITIVE NEGATIVE Urine methadone detection by screening method NEGA TIVE NEGATIVE Urine oxycodone detection NEGATIVE NEGA TIVE Urine propoxyphene detection NEGATIVE N EGATIVE Bacterial urine culture - 11/28/19 11:20 Bacterial urine culture [id number] NRG COLONY COUNT >100,000/ML NRG FTX;REPORTABLE SUSCEPTIBILITY REPORTED 11/30/19 12: 05 NRG FREE TEXT ENTRY 2 PRELIM RAPID ID TEST AT [facility] 11/29 07:50 NRG FREE TEXT ENTRY 3 RML CONFIRMED ID 11/29 15:05 NRG Dirithromycin susceptibility test by dis k diffusion - 11/28/19 11:20 Gentamicin susceptibility test by minimum inhibitory c oncentration <= NRG Trimethoprim/sulfamethoxazole susceptibi lity test by minimum inhibitoryconcentration > NRG Levofloxacin susceptibility test by minimum inhibitory [...] NRG Amoxicillin and clavulanate potassium susc JOHANA = NRG Bacterial blood culture - 11/29/19 11:55 Bacterial blood culture NG NRG Blood lactic acid measurement (moles/vol ume) - 11/29/19 11:57 Blood lactic acid measurement (moles/volume) 0.48 mmol/L 0.50-2.00 Complete blood count (CBC) with automate d white blood cell (WBC) differential - 11/29/19 11:58 Blood leukocytes automated count (number/volume) 4.4 10*3/uL 4.3-11.0 Blood erythrocytes automated count (number/volume) 2.89 10*6/uL 4.35-5.85 Venous blood hemoglobin measurement (mass/volume) 8.0 g/dL 11.5-16.0 Blood hematocrit (volume fraction) 26 % 35-52 Automated erythrocyte mean corpuscular volume 89 [ foz_us] 80-99 Automated erythrocyte mean corpuscular h emoglobin (mass per erythrocyte) 28 pg 25-34 Automated erythrocyte mean corpuscular h emoglobin concentration measurement (mass/volume) 31 g/dL 32-36 Automated erythrocyte distribution width ratio 14. 7 % 10.0- 14.5 Automated blood platelet count (count/volume) 188 10*3/uL 130-400 Automated blood platelet mean volume measurement 10.0 [foz_us] 7.4-10.4 Automated blood neutrophils/100 leukocytes 68 % 42-75 Automated blood lymphocytes/100 leukocytes 19 % 12-44 Blood monocytes/100 leukocytes 10 % 0-12 Automated blood eosinophils/100 leukocytes 2 % 0-10 Automated blood basophils/100 leukocytes 0 % 0-10 Blood neutrophils automated count (number/volume) 3.0 10*3 1.8-7.8 Blood lymphocytes automated count (number/volume) 0.9 10*3 1.0-4.0 Blood monocytes automated count (number/volume) 0. 5 10*3 0.0-1.0 Automated eosinophil count 0.1 10*3/uL 0 .0-0.3 Automated blood basophil count (count/volume) 0.0 10*3/uL 0.0-0.1 Comprehensive metabolic panel - 11/29/19 11:58 Serum or plasma sodium measurement (moles/volume) 136 mmol/L 135-145 Serum or plasma potassium measurement (moles/volume) 4.6 mmol/L 3.6-5.0 Serum or plasma chloride measurement (moles/volume) 111 mmol/L 98-107 Carbon dioxide 17 mmol/L 21-32 Serum or plasma anion gap determination (moles/volume) 8 mmol/L 5-14 Serum or plasma urea nitrogen measurement (mass/volume ) 34 mg/dL 7-18 Serum or plasma creatinine measurement (mass/volume) 1.70 mg/dL 0.60-1.30 Serum or plasma urea nitrogen/creatinine mass ratio 20 NRG Serum or plasma creatinine measurement w ith calculation of estimated glomerular filtration rate 31 NRG Serum or plasma glucose measurement (mass/volume) 79 mg/dL 70-105 Serum or plasma calcium measurement (mass/volume) 7.8 mg/dL 8.5-10.1 Serum or plasma total bilirubin measurement (mass/volu me) 0.2 mg/dL 0.1-1.0 Serum or plasma alkaline phosphatase lorenzo surement (enzymatic activity/volume) 61 U/L 40-136 Serum or plasma aspartate aminotransfera se measurement (enzymatic activity/volume) 17 U/L 5-34 Serum or plasma alanine aminotransferase measurement (enzymatic activity/volume) 16 U/L 0-55 Serum or plasma protein measurement (mass/volume) 5.8 g/dL 6.4-8.2 Serum or plasma albumin measurement (mass/volume) 3.0 g/dL 3.2-4.5 CALCIUM CORRECTED 8.6 mg/dL 8.5-10.1 Serum or plasma phosphate measurement (m ass/volume) - 11/29/19 11:58 Serum or plasma phosphate measurement (mass/volume) 3.7 mg/dL 2.3-4.7 Magnesium - 11/29/19 11:58 Magnesium 2.0 mg/dL 1.6-2.4 Serum or plasma lithium measurement (mol es/volume) - 11/29/19 11:58 BNP PT 367.9 pg/mL <100.0 Bacterial blood culture - 11/29/19 11:58 Bacterial blood culture NG NRG Bacterial blood culture - 11/29/19 12:20 Bacterial blood culture NG NRG Complete blood count (CBC) with automate d white blood cell (WBC) differential - 11/30/19 03:23 Blood leukocytes automated count (number/volume) 5.9 10*3/uL 4.3-11.0 Blood erythrocytes automated count (number/volume) 3.00 10*6/uL 4.35-5.85 Venous blood hemoglobin measurement (mass/volume) 8.3 g/dL 11.5-16.0 Blood hematocrit (volume fraction) 26 % 35-52 Automated erythrocyte mean corpuscular volume 87 [ foz_us] 80-99 Automated erythrocyte mean corpuscular h emoglobin (mass per erythrocyte) 28 pg 25-34 Automated erythrocyte mean corpuscular h emoglobin concentration measurement (mass/volume) 32 g/dL 32-36 Automated erythrocyte distribution width ratio 14. 8 % 10.0- 14.5 Automated blood platelet count (count/volume) 220 10*3/uL 130-400 Automated blood platelet mean volume measurement 9.9 [foz_us] 7.4-10.4 Automated blood neutrophils/100 leukocytes 76 % 42-75 Automated blood lymphocytes/100 leukocytes 13 % 12-44 Blood monocytes/100 leukocytes 9 % 0-12 Automated blood eosinophils/100 leukocytes 1 % 0-10 Automated blood basophils/100 leukocytes 0 % 0-10 Blood neutrophils automated count (number/volume) 4.5 10*3 1.8-7.8 Blood lymphocytes automated count (number/volume) 0.8 10*3 1.0-4.0 Blood monocytes automated count (number/volume) 0. 6 10*3 0.0-1.0 Automated eosinophil count 0.1 10*3/uL 0 .0-0.3 Automated blood basophil count (count/volume) 0.0 10*3/uL 0.0-0.1 Whole blood basic metabolic panel - 11/13 06/01 03:23 Serum or plasma sodium measurement (moles/volume) 137 mmol/L 135-145 Serum or plasma potassium measurement (moles/volume) 4.7 mmol/L 3.6-5.0 Serum or plasma chloride measurement (moles/volume) 110 mmol/L 98-107 Carbon dioxide 18 mmol/L 21-32 Serum or plasma anion gap determination (moles/volume) 9 mmol/L 5-14 Serum or plasma urea nitrogen measurement (mass/volume ) 26 mg/dL 7-18 Serum or plasma creatinine measurement (mass/volume) 1.50 mg/dL 0.60-1.30 Serum or plasma urea nitrogen/creatinine mass ratio 17 NRG Serum or plasma creatinine measurement w ith calculation of estimated glomerular filtration rate 36 NRG Serum or plasma glucose measurement (mass/volume) 124 mg/dL 70-105 Serum or plasma calcium measurement (mass/volume) 8.2 mg/dL 8.5-10.1 Serum or plasma phosphate measurement (m ass/volume) - 11/30/19 03:23 Serum or plasma phosphate measurement (mass/volume) 2.6 mg/dL 2.3-4.7 Magnesium - 11/30/19 03:23 Magnesium 1.8 mg/dL 1.6-2.4 Arterial blood gas measurement - 0 04:37 Blood pCO2 41 mm[Hg] 35-45 Blood pO2 111 mm[Hg] 79-93 Arterial blood bicarbonate measurement (moles/volume) 19 mmol/L 23-27 Arterial blood base excess by calculation -6.8 mmo l/L -2.5-2.5 Arterial blood oxygen saturation measurement 99 % 94-100 * Inhaled oxygen flow rate 50% NRG Arterial blood pH measurement with patient temperature correction 7.28 7.37-7.43 Arterial blood carbon dioxide, total measurement (mole s/volume) 19.9 mmol/L 21.0-31.0 Body site RIGHT RADIAL NRG Assessment of wrist artery patency prior to arterial p uncture POSITIVE NRG Setting of ventilation mode NO NR G Measurement of body temperature 37.2 NRG Capillary blood glucose measurement by g lucometer (mass/volume) - 11/30/19 11:29 Capillary blood glucose measurement by glucometer (mas s/volume) 114 mg/dL 70-110 Capillary blood glucose measurement by g lucometer (mass/volume) - 11/30/19 18:27 Capillary blood glucose measurement by glucometer (mas s/volume) 116 mg/dL 70-110 Blood lactic acid measurement (moles/vol ume) - 11/30/19 21:50 Blood lactic acid measurement (moles/volume) 0.88 mmol/L 0.50-2.00 Bacterial blood culture - 11/30/19 21:50 Bacterial blood culture NG NRG Capillary blood glucose measurement by g lucometer (mass/volume) - 11/30/19 23:52 Capillary blood glucose measurement by glucometer (mas s/volume) 93 mg/dL 70-110 Complete blood count (CBC) with automate d white blood cell (WBC) differential - 12/01/19 03:20 Blood leukocytes automated count (number/volume) 6.0 10*3/uL 4.3-11.0 Blood erythrocytes automated count (number/volume) 3.10 10*6/uL 4.35-5.85 Venous blood hemoglobin measurement (mass/volume) 8.6 g/dL 11.5-16.0 Blood hematocrit (volume fraction) 27 % 35-52 Automated erythrocyte mean corpuscular volume 86 [ foz_us] 80-99 Automated erythrocyte mean corpuscular h emoglobin (mass per erythrocyte) 28 pg 25-34 Automated erythrocyte mean corpuscular h emoglobin concentration measurement (mass/volume) 32 g/dL 32-36 Automated erythrocyte distribution width ratio 14. 5 % 10.0- 14.5 Automated blood platelet count (count/volume) 243 10*3/uL 130-400 Automated blood platelet mean volume measurement 9.8 [foz_us] 7.4-10.4 Automated blood neutrophils/100 leukocytes 70 % 42-75 Automated blood lymphocytes/100 leukocytes 22 % 12-44 Blood monocytes/100 leukocytes 7 % 0-12 Automated blood eosinophils/100 leukocytes 2 % 0-10 Automated blood basophils/100 leukocytes 0 % 0-10 Blood neutrophils automated count (number/volume) 4.2 10*3 1.8-7.8 Blood lymphocytes automated count (number/volume) 1.3 10*3 1.0-4.0 Blood monocytes automated count (number/volume) 0. 4 10*3 0.0-1.0 Automated eosinophil count 0.1 10*3/uL 0 .0-0.3 Automated blood basophil count (count/volume) 0.0 10*3/uL 0.0-0.1 Whole blood basic metabolic panel - 11/13 07/02 03:20 Serum or plasma sodium measurement (moles/volume) 140 mmol/L 135-145 Serum or plasma potassium measurement (moles/volume) 3.9 mmol/L 3.6-5.0 Serum or plasma chloride measurement (moles/volume) 109 mmol/L 98-107 Carbon dioxide 18 mmol/L 21-32 Serum or plasma anion gap determination (moles/volume) 13 mmol/L 5-14 Serum or plasma urea nitrogen measurement (mass/volume ) 18 mg/dL 7-18 Serum or plasma creatinine measurement (mass/volume) 1.22 mg/dL 0.60-1.30 Serum or plasma urea nitrogen/creatinine mass ratio 15 NRG Serum or plasma creatinine measurement w ith calculation of estimated glomerular filtration rate 45 NRG Serum or plasma glucose measurement (mass/volume) 118 mg/dL 70-105 Serum or plasma calcium measurement (mass/volume) 8.5 mg/dL 8.5-10.1 Serum or plasma phosphate measurement (m ass/volume) - 12/01/19 03:20 Serum or plasma phosphate measurement (mass/volume) 3.5 mg/dL 2.3-4.7 Magnesium - 12/01/19 03:20 Magnesium 1.6 mg/dL 1.6-2.4 Serum iron and total iron binding capaci ty panel - 12/01/19 03:20 TIBC See Est TIBC 280-380 UIBC 242 % 55-450 Serum or plasma iron measurement (mass/volume) < % 35-180 Total iron binding capacity and transferrin saturation measurement See Est %Sat 15-50 Serum or plasma ferritin measurement (mass/volume) 80.4 % 20.0-177.0 EST TIBC - 12/01/19 03:20 EST TIBC 252 % 280-380 EST %SATURATION - 12/01/19 03:20 EST %SATURATION 4 % 15-50 Capillary blood glucose measurement by g lucometer (mass/volume) - 12/01/19 11:55 Capillary blood glucose measurement by glucometer (mas s/volume) 89 mg/dL 70-110 Capillary blood glucose measurement by g lucometer (mass/volume) - 12/01/19 18:06 Capillary blood glucose measurement by glucometer (mas s/volume) 101 mg/dL 70-110 Capillary blood glucose measurement by g lucometer (mass/volume) - 12/01/19 23:54 Capillary blood glucose measurement by glucometer (mas s/volume) 112 mg/dL 70-110 Complete blood count (CBC) with automate d white blood cell (WBC) differential - 12/02/19 03:15 Blood leukocytes automated count (number/volume) 4.2 10*3/uL 4.3-11.0 Blood erythrocytes automated count (number/volume) 3.46 10*6/uL 4.35-5.85 Venous blood hemoglobin measurement (mass/volume) 9.4 g/dL 11.5-16.0 Blood hematocrit (volume fraction) 30 % 35-52 Automated erythrocyte mean corpuscular volume 85 [ foz_us] 80-99 Automated erythrocyte mean corpuscular h emoglobin (mass per erythrocyte) 27 pg 25-34 Automated erythrocyte mean corpuscular h emoglobin concentration measurement (mass/volume) 32 g/dL 32-36 Automated erythrocyte distribution width ratio 15. 0 % 10.0- 14.5 Automated blood platelet count (count/volume) 331 10*3/uL 130-400 Automated blood platelet mean volume measurement 9.4 [foz_us] 7.4-10.4 Automated blood neutrophils/100 leukocytes 59 % 42-75 Automated blood lymphocytes/100 leukocytes 30 % 12-44 Blood monocytes/100 leukocytes 6 % 0-12 Automated blood eosinophils/100 leukocytes 4 % 0-10 Automated blood basophils/100 leukocytes 1 % 0-10 Blood neutrophils automated count (number/volume) 2.5 10*3 1.8-7.8 Blood lymphocytes automated count (number/volume) 1.2 10*3 1.0-4.0 Blood monocytes automated count (number/volume) 0. 3 10*3 0.0-1.0 Automated eosinophil count 0.2 10*3/uL 0 .0-0.3 Automated blood basophil count (count/volume) 0.0 10*3/uL 0.0-0.1 Whole blood basic metabolic panel - 11/14 03:15 Serum or plasma sodium measurement (moles/volume) 141 mmol/L 135-145 Serum or plasma potassium measurement (moles/volume) 3.9 mmol/L 3.6-5.0 Serum or plasma chloride measurement (moles/volume) 106 mmol/L 98-107 Carbon dioxide 21 mmol/L 21-32 Serum or plasma anion gap determination (moles/volume) 14 mmol/L 5-14 Serum or plasma urea nitrogen measurement (mass/volume ) 12 mg/dL 7-18 Serum or plasma creatinine measurement (mass/volume) 0.96 mg/dL 0.60-1.30 Serum or plasma urea nitrogen/creatinine mass ratio 13 NRG Serum or plasma creatinine measurement w ith calculation of estimated glomerular filtration rate 59 NRG Serum or plasma glucose measurement (mass/volume) 93 mg/dL 70-105 Serum or plasma calcium measurement (mass/volume) 8.8 mg/dL 8.5-10.1 Serum or plasma phosphate measurement (m ass/volume) - 12/02/19 03:15 Serum or plasma phosphate measurement (mass/volume) 3.0 mg/dL 2.3-4.7 Magnesium - 12/02/19 03:15 Magnesium 1.6 mg/dL 1.6-2.4 Serum or plasma lithium measurement (mol es/volume) - 12/02/19 03:15 BNP PT 345.6 pg/mL <100.0 Capillary blood glucose measurement by g lucometer (mass/volume) - 12/02/19 11:18 Capillary blood glucose measurement by glucometer (mas s/volume) 159 mg/dL 70-110 Capillary blood glucose measurement by g lucometer (mass/volume) - 12/02/19 18:07 Capillary blood glucose measurement by glucometer (mas s/volume) 137 mg/dL 70-110 Capillary blood glucose measurement by g lucometer (mass/volume) - 12/03/19 00:50 Capillary blood glucose measurement by glucometer (mas s/volume) 99 mg/dL 70-110 Complete blood count (CBC) with automate d white blood cell (WBC) differential - 12/03/19 03:30 Blood leukocytes automated count (number/volume) 4.6 10*3/uL 4.3-11.0 Blood erythrocytes automated count (number/volume) 3.27 10*6/uL 4.35-5.85 Venous blood hemoglobin measurement (mass/volume) 8.9 g/dL 11.5-16.0 Blood hematocrit (volume fraction) 28 % 35-52 Automated erythrocyte mean corpuscular volume 86 [ foz_us] 80-99 Automated erythrocyte mean corpuscular h emoglobin (mass per erythrocyte) 27 pg 25-34 Automated erythrocyte mean corpuscular h emoglobin concentration measurement (mass/volume) 32 g/dL 32-36 Automated erythrocyte distribution width ratio 14. 8 % 10.0- 14.5 Automated blood platelet count (count/volume) 395 10*3/uL 130-400 Automated blood platelet mean volume measurement 9.7 [foz_us] 7.4-10.4 Automated blood neutrophils/100 leukocytes 54 % 42-75 Automated blood lymphocytes/100 leukocytes 35 % 12-44 Blood monocytes/100 leukocytes 6 % 0-12 Automated blood eosinophils/100 leukocytes 5 % 0-10 Automated blood basophils/100 leukocytes 0 % 0-10 Blood neutrophils automated count (number/volume) 2.5 10*3 1.8-7.8 Blood lymphocytes automated count (number/volume) 1.6 10*3 1.0-4.0 Blood monocytes automated count (number/volume) 0. 3 10*3 0.0-1.0 Automated eosinophil count 0.2 10*3/uL 0 .0-0.3 Automated blood basophil count (count/volume) 0.0 10*3/uL 0.0-0.1 Whole blood basic metabolic panel - 11/14 11/01 03:30 Serum or plasma sodium measurement (moles/volume) 139 mmol/L 135-145 Serum or plasma potassium measurement (moles/volume) 4.7 mmol/L 3.6-5.0 Serum or plasma chloride measurement (moles/volume) 103 mmol/L 98-107 Carbon dioxide 23 mmol/L 21-32 Serum or plasma anion gap determination (moles/volume) 13 mmol/L 5-14 Serum or plasma urea nitrogen measurement (mass/volume ) 20 mg/dL 7-18 Serum or plasma creatinine measurement (mass/volume) 1.13 mg/dL 0.60-1.30 Serum or plasma urea nitrogen/creatinine mass ratio 18 NRG Serum or plasma creatinine measurement w ith calculation of estimated glomerular filtration rate 49 NRG Serum or plasma glucose measurement (mass/volume) 97 mg/dL 70-105 Serum or plasma calcium measurement (mass/volume) 9.0 mg/dL 8.5-10.1 Serum or plasma phosphate measurement (m ass/volume) - 12/03/19 03:30 Serum or plasma phosphate measurement (mass/volume) 4.3 mg/dL 2.3-4.7 Magnesium - 12/03/19 03:30 Magnesium 1.6 mg/dL 1.6-2.4 Capillary blood glucose measurement by g lucometer (mass/volume) - 12/03/19 11:23 Capillary blood glucose measurement by glucometer (mas s/volume) 146 mg/dL 70-110 Capillary blood glucose measurement by g lucometer (mass/volume) - 12/03/19 17:52 Capillary blood glucose measurement by glucometer (mas s/volume) 117 mg/dL 70-110 Capillary blood glucose measurement by g lucometer (mass/volume) - 12/04/19 01:16 Capillary blood glucose measurement by glucometer (mas s/volume) 111 mg/dL 70-110 Complete blood count (CBC) with automate d white blood cell (WBC) differential - 12/04/19 02:57 Blood leukocytes automated count (number/volume) 5.3 10*3/uL 4.3-11.0 Blood erythrocytes automated count (number/volume) 3.61 10*6/uL 4.35-5.85 Venous blood hemoglobin measurement (mass/volume) 9.9 g/dL 11.5-16.0 Blood hematocrit (volume fraction) 32 % 35-52 Automated erythrocyte mean corpuscular volume 88 [ foz_us] 80-99 Automated erythrocyte mean corpuscular h emoglobin (mass per erythrocyte) 27 pg 25-34 Automated erythrocyte mean corpuscular h emoglobin concentration measurement (mass/volume) 31 g/dL 32-36 Automated erythrocyte distribution width ratio 15. 2 % 10.0- 14.5 Automated blood platelet count (count/volume) 523 10*3/uL 130-400 Automated blood platelet mean volume measurement 9.3 [foz_us] 7.4-10.4 Automated blood neutrophils/100 leukocytes 67 % 42-75 Automated blood lymphocytes/100 leukocytes 26 % 12-44 Blood monocytes/100 leukocytes 4 % 0-12 Automated blood eosinophils/100 leukocytes 3 % 0-10 Automated blood basophils/100 leukocytes 0 % 0-10 Blood neutrophils automated count (number/volume) 3.6 10*3 1.8-7.8 Blood lymphocytes automated count (number/volume) 1.4 10*3 1.0-4.0 Blood monocytes automated count (number/volume) 0. 2 10*3 0.0-1.0 Automated eosinophil count 0.2 10*3/uL 0 .0-0.3 Automated blood basophil count (count/volume) 0.0 10*3/uL 0.0-0.1 Whole blood basic metabolic panel - 11/14 12/02 02:57 Serum or plasma sodium measurement (moles/volume) 140 mmol/L 135-145 Serum or plasma potassium measurement (moles/volume) 4.9 mmol/L 3.6-5.0 Serum or plasma chloride measurement (moles/volume) 102 mmol/L 98-107 Carbon dioxide 23 mmol/L 21-32 Serum or plasma anion gap determination (moles/volume) 15 mmol/L 5-14 Serum or plasma urea nitrogen measurement (mass/volume ) 21 mg/dL 7-18 Serum or plasma creatinine measurement (mass/volume) 1.26 mg/dL 0.60-1.30 Serum or plasma urea nitrogen/creatinine mass ratio 17 NRG Serum or plasma creatinine measurement w ith calculation of estimated glomerular filtration rate 43 NRG Serum or plasma glucose measurement (mass/volume) 161 mg/dL 70-105 Serum or plasma calcium measurement (mass/volume) 9.1 mg/dL 8.5-10.1 Serum or plasma phosphate measurement (m ass/volume) - 12/04/19 02:57 Serum or plasma phosphate measurement (mass/volume) 4.3 mg/dL 2.3-4.7 Magnesium - 12/04/19 02:57 Magnesium 2.1 mg/dL 1.6-2.4 Capillary blood glucose measurement by g lucometer (mass/volume) - 12/04/19 11:21 Capillary blood glucose measurement by glucometer (mas s/volume) 96 mg/dL 70-110 Encounters ACCT No. Visit Date/Time Discharge Status Pt. Type Provider Facility Loc./Unit Complaint [id number] 09/13/2014 14:47:00 ACT Unknown [id number] 11/28/2019 13:35:00 13:53:00 DIS Outpatient ANGELIQUE GONZALES, JEANIE Boone [facility] ICU ARF, UTI, ABD P AIN [id number] 10/27/2019 21:42:00 03:00:00 DIS Outpatient MICHAEL BURRELL MD [facility] ER WEAKNESS [id number] 10/09/2019 14:09:00 17:15:00 DIS Emergency NEERAJ VILLA APRN [facility] ER SEIZURE [id number] 09/14/2019 10:38:00 14:45:00 DIS Inpatient VALDOVINOS DO, RAJAN [facility] ICU SEIZURE; [id number] 08/26/2019 07:23:00 13:46:00 DIS Inpatient MATTHEW DAVID MD [facility] 4TH ALTERED MENTAL STATUS;A CUTE ON CHRONIC RESP. FAIL- [id number] 08/12/2019 09:48:00 13:00:00 DIS Inpatient JIMENEZ GONZALES, KWAKU James [facility] 4TH SEIZURE,ACUTE RENAL MARTHA LURE, TROPONIN [id number] 07/07/2019 09:23:00 16:40:00 DIS Inpatient VALDOVINOS DO, RAJAN V [facility] 4TH CHEST PAIN;DEHYDRATION;DIARRHEA,ACUTE RENAL INSUF. [id number] 07/02/2019 14:23:00 15:35:00 DIS Inpatient VALDOVINOS DO, RAJAN V [facility] 4TH AMS, RESPIRATORY FAILUR E, UTI [id number] 05/04/2019 08:39:00 12:59:00 DIS Emergency QUIN JONES MD [facility] ER CHEST PAIN [id number] 09/10/2018 20:19:00 21:49:00 DIS Emergency NEERAJ VILLA APRN [facility] ER SEIZURE [id number] 08/27/2018 14:28:00 23:59:59 CLS Preadmit Paolo PERKINS MD [facility] SLEEP LAUREN [id number] 08/20/2018 10:18:00 23:59:59 CLS Outpatient Paolo PERKINS MD [facility] CATH MODERATE TO SEVERE MITR AL REGURGITATION [id number] 08/03/2018 06:30:00 23:59:59 CLS Outpatient Paolo PERKINS MD [facility] SEVERE MITRAL REGURGITA TION BY PRIOR ECHO [id number] 07/24/2018 13:33:00 23:59:59 CLS Outpatient Paolo PERKINS MD [facility] CARD I34.0 MITRAL REGURGITAT ION [id number] 07/17/2018 07:52:00 018 23:59:59 CLS Outpatient Paolo PERKINS MD [facility] LAB N18.9 [id number] 02/20/2018 22:00:00 018 18:50:00 DIS Inpatient DEGROOT DO, GAVI K [facility] 4TH ELEVATED TROPONIN,ELEVA BRINA D- DIMER,SOA [id number] 02/03/2018 22:20:00 018 01:26:00 DIS Emergency MICHAEL BURRELL MD [facility] ER CP/SEIZURE [id number] 06/18/2017 18:03:00 017 21:14:00 DIS Emergency STAR ORTIZ [facility] ER LT LEG SORE/BRUISING [id number] 03/06/2017 09:45:00 017 11:46:00 DIS Emergency QUIN JONES MD [facility] ER ABD PAIN [id number] 11/23/2016 14:15:00 017 16:00:00 DIS Emergency ROBERT GONZALES, QUIN Villavicencio [facility] ER SOA/COUGH/VOMIT ING [id number] 08/05/2016 20:48:00 016 22:20:00 DIS Emergency KAILA LANGEHOLA a [facility] ER R LEG WOUND/PAINFUL URI NATION/LOWER BACK PAIN [id number] 01/27/2016 20:37:00 016 02:05:00 DIS Emergency KAILA LANGE, HOLA Turk a [facility] ER ABD PAIN,N,V,D [id number] 01/27/2016 01:55:00 016 05:47:00 DIS Emergency CHRISSY GONZALES, SANTHOSH Castellano [facility] ER L FLANK PAIN [id number] 02/02/2015 15:37:00 015 17:07:00 DIS Emergency STAR ORTIZ [facility] ER PAIN [id number] 01/19/2015 01:46:00 015 04:46:00 DIS Emergency SANTHOSH LOWE MD [facility] ER MERSA FLARING U P [id number] 11/27/2014 20:30:00 015 22:29:00 DIS Emergency STAR ORTIZ [facility] ER BACK PAIN [id number] 06/07/2014 16:31:00 014 14:12:00 DIS Inpatient DEGROOT DO, GAVI K V [facility] ICU INTRACTABLE L HIP PAIN, UNABLE TO CARE FOR SELF [id number] 06/05/2014 13:39:00 014 16:45:00 DIS Emergency STAR ORTIZ [facility] ER FALL NECK PAIN AND VALDEMAR K PAIN [id number] 05/23/2014 20:00:00 014 11:35:00 DIS Inpatient JOANN GONZALES, MATTHEW Longoria [facility] ICU CHEST PAIN,COPD EXACERBATION,ELEVATED D-DIMER [id number] 04/09/2014 13:14:00 16:26:00 DIS Emergency NEERAJ VILLA PATIENT TRANSITION SPECIALIST [facility] ER ABD PAIN [id number] 04/06/2014 10:52:00 11:45:00 DIS Inpatient GAVI DEGROOT DO [facility] 4TH RESPIRATORY DISTRESS,HYPOXIA,PNEUMONIA,CHEST PAIN [id number] 03/18/2014 16:36:00 18:25:00 DIS Emergency NEERAJ VILLA PATIENT TRANSITION SPECIALIST [facility] ER SOA [id number] 02/04/2014 19:05:00 23:17:00 DIS Emergency HOLA BRIGHT DO [facility] ER CHEST PAIN [id number] 11/14/2013 14:21:00 18:24:00 DIS Emergency NEERAJ VILLA PATIENT TRANSITION SPECIALIST [facility] ER LOWER BACK PAIN [id number] 09/28/2013 23:45:00 02:02:00 DIS Emergency CHRISSY GONZALES, SANTHOSH Castellano [facility] ER CHEST PAIN [id number] 09/15/2013 12:59:00 14:32:00 DIS Emergency ROBERT GONZALES, QUIN Villavicencio [facility] ER COUGH [id number] 09/13/2013 15:15:00 08:46:00 DIS Inpatient ABELARDO AMANDA MD [facility] ICU CHEST PAIN, ELEVATED TR OPONIA [id number] 07/29/2013 14:25:00 14:49:00 DIS Outpatient BRI VILLASEÑOR [facility] WOUNDCARE LEG ABSCESS [id number] 06/20/2013 00:03:00 16:42:00 DIS Inpatient AGVI DEGROOT DO [facility] SURGICAL MULTIPLE ABSCESSES [id number] 06/04/2013 12:49:00 23:59:59 CLS Outpatient ABELARDO AMANDA MD [facility] RAD CHF [id number] 06/04/2013 10:53:00 013 23:59:59 CLS Outpatient VASILIY GONZALES, ABELARDO Valdovinos [facility] CARD CHF [id number] 05/30/2013 13:54:00 013 15:27:00 DIS Emergency SANTHOSH LOWE MD [facility] ER CHEST PAIN [id number] 05/10/2013 01:14:00 013 14:24:00 DIS Inpatient JONATHAN GONZALES, NGOC Valdovinos [facility] ICU NSTEMI,CHEST PAIN,HYPER TENSIVE URGENCY [id number] 04/29/2013 14:28:00 23:59:59 CLS Outpatient [id number] 01/08/2020 01:15:[address] Emergency CHRISSY GONZALES, SANTHOSH Castellano [facility] ER SEIZURE [id number] 05/15/2018 00:10:00 Document Registration [id number] 01/27/2016 05:53:00 Document Registration [id number] 12/01/2014 13:05:00 Document Registration [id number] 12/17/2012 04:30:00 Document Registration [id number] 08/03/2012 03:50:00 Document Registration [id number] 07/23/2012 17:10:00 Document Registration [id number] 05/25/2012 03:15:00 Document Registration [id number] 05/09/2012 19:20:00 Document Registration [id number] 03/28/2012 06:00:00 Document Registration [id number] 10/10/2011 13:00:00 Document Registration [id number] 07/16/2011 01:55:00 Document Registration [id number] 07/02/2011 06:44:00 Document Registration [id number] 04/12/2011 19:39:00 Document Registration [id number] 03/22/2011 02:40:00 Document Registration [id number] 03/19/2011 17:35:00 Document Registration [id number] 03/03/2011 20:58:00 Document Registration [id number] 01/21/2011 21:56:00 Document Registration [id number] 12/28/2010 15:45:00 Document Registration [id number] 11/04/2010 20:43:00 Document Registration [id number] 02/05/2010 04:25:00 Document Registration [id number] 01/31/2015 15:03:00 01/31/2015 23:59: 59 CLS Outpatient KRANTHI PRECIADO MD [id number] 11/28/2014 09:37:00 11/28/2014 23:59: 59 CLS Outpatient TRACEE LANGE APRN [id number] 08/05/2014 14:32:00 08/05/2014 23:59: 59 CLS Outpatient TRACEE LANGE APRN [id number] 07/04/2014 12:54:00 07/04/2014 23:59: 59 CLS Outpatient MIKAYLA LANGE GAVI Alec [id number] 05/02/2014 15:01:00 05/02/2014 23:59: 59 CLS Outpatient MIKAYLA LANGEGAVI [id number] 12/10/2013 14:53:00 12/10/2013 23:59: 59 CLS Outpatient TRACEE LANGE APRN [id number] 09/29/2013 15:37:00 09/29/2013 23:59: 59 CLS Outpatient TRACEE LANGE APRN [id number] 09/18/2013 12:00:00 09/18/2013 23:59: 59 CLS Outpatient TRACEE LANGE APRN [id number] 07/15/2013 14:04:00 07/15/2013 23:59: 59 CLS Outpatient KRANTHI PRECIADO MD [id number] 05/31/2013 09:17:00 05/31/2013 23:59: 59 CLS Outpatient KRANTHI PRECIADO MD [id number] 12/09/2012 17:16:00 12/09/2012 23:59: 59 CLS Outpatient TRACEE LANGE APRN Nona [id number] 10/28/2012 12:04:00 10/28/2012 23:59: 59 CLS Outpatient TRACEE LANGE APRN Nona [id number] 10/19/2012 16:04:00 10/19/2012 23:59: 59 CLS Outpatient [id number] 09/16/2012 15:22:00 09/16/2012 23:59: 59 CLS Outpatient [id number] 08/14/2012 10:30:00 08/14/2012 23:59:5 9 CLS Outpatient KRANTHI PRECIADO MD [id number] 05/21/2013 10:29:00 Document Registration [id number] 03/02/2013 15:46:00 Document Registration [id number] 08/18/2019 15:40:00 08/18/2019 23:59:5 9 CLS Outpatient TRACEE LANGE APRN [facility] [id number] 06/11/2019 13:40:00 Document Registration [id number] 05/05/2019 10:40:00 Document Registration [id number] 11/30/2018 15:40:00 Document Registration [id number] 09/04/2018 11:00:00 Document Registration
[2020-01-08 01:45] LABS: BASOPHILS % (AUTO) 0 % (0-10); EOSINOPHILS # (AUTO) 0.1 10^3/uL (0.0-0.3); EOSINOPHILS % (AUTO) 0 % (0-10); HEMATOCRIT 28 % (35-52); HEMOGLOBIN 9.2 G/DL (11.5-16.0); LYMPHOCYTES % (AUTO) 8 % (12-44); MEAN CORPUSCULAR HEMOGLOBIN 29 PG (25-34); MEAN CORPUSCULAR HGB CONC 33 G/DL (32-36); MEAN CORPUSCULAR VOLUME 86 FL (80-99); MONOCYTES # (AUTO) 0.7 X 10^3 (0.0-1.0); MONOCYTES % (AUTO) 6 % (0-12); NEUTROPHILS % (AUTO) 86 % (42-75); PLATELET COUNT 317 10^3/uL (130-400); RED CELL DISTRIBUTION WIDTH 16.9 % (10.0-14.5); WHITE BLOOD COUNT 12.7 10^3/uL (4.3-11.0)
[2020-01-08] MEDS ORDERED: NS IV 1000 ML 1,000 ML IV SCH ×3 (01:55→03:44)
[2020-01-08 02:10] LABS: ALANINE AMINOTRANSFERASE 75 U/L (0-55); ALBUMIN 3.4 GM/DL (3.2-4.5); ALKALINE PHOSPHATASE 82 U/L (40-136); BILIRUBIN,TOTAL 0.3 MG/DL (0.1-1.0); BUN/CREATININE RATIO 15; CARBON DIOXIDE 15 MMOL/L (21-32); CHLORIDE 98 MMOL/L (98-107); CREATININE SERUM 4.83 MG/DL (0.60-1.30); GFR ESTIMATED 9; GLUCOSE 186 MG/DL (70-105); MAGNESIUM 2.2 MG/DL (1.6-2.4); POTASSIUM 3.5 MMOL/L (3.6-5.0); SODIUM 129 MMOL/L (135-145); TOTAL PROTEIN 6.5 GM/DL (6.4-8.2)
[2020-01-08 02:11] LABS: INR 1.2 (0.8-1.4); PROTHROMBIN TIME PATIENT 15.2 SEC (12.2-14.7)
[2020-01-08] MEDS ORDERED: LEVETIRACETAM 500 MG/5 ML (KEPPRA) VIAL IV ONE (02:37)
[2020-01-08] MEDS ORDERED: NS (IVPB) 100 ML ONE (02:39)
[2020-01-08] MEDS ORDERED: PIPERACILLIN SODIUM/TAZOBACTAM 2.25 GM in NS (IVPB) 100 ML IV ONE (03:00)
--- NOTE | 2020-01-08 03:13 | ED Neurological Problem ---
General Chief Complaint: Neurological Problems Stated Complaint: SEIZURE Source: patient, EMS, old records Exam Limitations: no limitations History of Present Illness Date Seen by Provider: Jan 08, 2020 Time Seen by Provider: 01:15 Initial Comments This 59-year-old woman presents to the emergency room via EMS after having a seizure in her home and being found on the floor. It was suspected that she hit her head. She also complains of left lower leg pain. The left lower leg is warm, erythematous, and has significant pitting edema. Patient states it has been this way for a few days. EMS reports patient had a brief seizure at about 10 seconds while in route. They gave Versed 3 mg. Patient has significant al tered mental status and her speech is very difficult to understand. Patient has speech difficulties at baseline but this is more severe. She is not able to provide significant history. We attempted to apply a c-collar but she refused. Patient was recently admitted and treated in the ICU with altered mental status. She ultimately was transferred to [place] because of seizures and need for neurology assessments. She is known to use methamphetamines and tested positive for methamphetamines during her last admission in November. Systolic blood pressures on assessment are in the 70s to 90s. She is afebrile. Fingerstick blood sugar for EMS was 232. Allergies and Home Medications Allergies Coded Allergies: nitrous oxide (Verified Allergy, Unknown, 06/08/07) Home Medications Acetaminophen 500 Mg Tablet, 1,000 MG PO Q6H PRN for PAIN-MILD, (Reported) Amlodipine Besylate 10 Mg Tablet, 5 MG PO BID, (Reported) Carvedilol 25 Mg Tab, 25 MG PO BID, (Reported) Clonidine HCl 0.2 Mg Tablet, 0.2 MG PO BID, (Reported) Famotidine 20 Mg Tablet, 20 MG PO BID, (Reported) Hydralazine HCl 100 Mg Tablet, 100 MG PO TID, (Reported) Levetiracetam 1,000 Mg Tablet, 1,000 MG PO BID, (Reported) Loratadine 10 Mg Tablet, 10 MG PO DAILY, (Reported) Losartan Potassium 100 Mg Tablet, 100 MG PO DAILY, (Reported) Oxcarbazepine 600 Mg Tablet, 600 MG PO BID, (Reported) Phenobarbital 64.8 Mg Tablet, 129.6 MG PO BID, (Reported) TAKES 2 (64.8MG) TABS TO EQUAL 129.6 Prazosin HCl 1 Mg Capsule, 1 MG PO HS, (Reported) Quetiapine Fumarate 25 Mg Tablet, 12.5 MG PO BID, (Reported) Patient Home Medication List Home Medication List Reviewed: Yes Review of Systems Review of Systems Constitutional: no symptoms reported Eyes: No Symptoms Reported Ears, Nose, Mouth, Throat: no symptoms reported Respiratory: no symptoms reported Cardiovascular: see HPI Gastrointestinal: no symptoms reported Genitourinary: no symptoms reported : No Musculoskeletal: see HPI Skin: see HPI Psychiatric/Neurological: See HPI Endocrine: No Symptoms Reported Hematologic/Lymphatic: No Symptoms Reported Past Fqhhrai-Ybfdhx-Vanyte Hx Past Med/Social Hx: Reviewed Nursing Past Med/Soc Hx Patient Social History Recreational Drug Use: Yes Drug of Choice: + IV METH USE, THC USE Type Used: Cigarettes 2nd Hand Smoke Exposure: Yes Recent Hopitalizations: No (10/09/19) Immunizations Up To Date Tetanus Booster (TDap): Less than 5yrs PED Vaccines UTD: No Date of Pneumonia Vaccine: Jul 13, 2012 Date of Influenza Vaccine: Jul 15, 2019 Seasonal Allergies Seasonal Allergies: No Past Medical History Surgeries: Yes Abdominal, Adenoidectomy, Cardiac, Section, Hysterectomy, Oophorectomy, Tonsillectomy Respiratory: Yes COPD Currently Using CPAP: No Currently Using BIPAP: No Cardiac: Yes Cardiomyopathy, Coronary Artery Disease, Endocarditis, Heart Attack, Hypertension, Peripheral Vascular, Valvular Heart Disease Neurological: Yes Concussion, Seizure Disorder, Stroke, Traumatic Brain Injury 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 Disorders: No Female 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 [facility]NAGER [facility] History: Hysterectomy, Menopausal Sexually Transmitted Disease: No HIV/AIDS: No Genitourinary: Yes Kidney Infection, Bladder Infection, Kidney Stones, Renal Failure, UTI-Chronic Gastrointestinal: Yes Abdominal Hernia, Gastroesophageal Reflux, Pancreatitis, Hepatitis Musculoskeletal: Yes (CHRONIC NECK AND BACK PAIN; POOR AMBULATION) Arthritis, Chronic Back Pain Endocrine: Yes (HGB AIC WAS 6.5 ON 12/23/18) Diabetes, Non-Insulin dep HEENT: Yes (POOR DENTITION) Loss of Vision: Denies Hearing Impairment: Denies Cancer: No Cervical Psychosocial: Yes (EXTENSIVE POLYSUBSTANCE ABUSE) Anxiety, Bipolar, Depression Integumentary: No Blood Disorders: Yes (ANEMIA OF CHRONIC DISEASE) Adverse Reaction/Blood Tranf: No Family Medical History Reviewed Nursing Family Hx Abdominal aortic aneurysm 03 FATHER Alcoholism 03 FATHER 03 MOTHER 09 SISTER 09 SISTER Cancer 03 FATHER Cataract 03 FATHER 03 MOTHER Chest pain 03 MOTHER Family history: Diabetes mellitus 03 MOTHER Family history: Hypertension 03 MOTHER Family history: Thyroid disorder 03 MOTHER Headache 09 SISTER Heart disease 03 MOTHER History of drug abuse 03 FATHER 09 SISTER Myocardial infarction 03 MOTHER No Family History of: Cairo's disease Aphasia Cancer of colon Congenital heart disease Congestive heart failure Cystic fibrosis Dementia Dysphagia Family history: Allergy Family history: Alzheimer's disease Family history: Arthritis Family history: Asthma Family history: Breast disease Family history: Cardiovascular disease Family history: Coronary thrombosis Family history: Gastrointestinal disease Family history: Glaucoma Family history: Osteoporosis Hearing loss Hereditary disease History of - anemia History of - disorder History of - respiratory disease Human immunodeficiency virus (HIV) seropositivity Hypercholesterolemia Infertile Kidney disease Malignant neoplasm of lung Parkinson's disease Prostate cancer Psychotic disorder Seizure disorder Stroke Tuberculosis Visual impairment AAA, Heart Disease, Diabetes Physical Exam Vital Signs Vital Signs - First Documented 01/08/20 01/08/20 01:18 01:30 Temp 36.6 Pulse 70 Resp 22 B/P (MAP) 90/54 (66) Pulse Ox 97 O2 Delivery Nasal Cannula O2 Flow Rate 2.00 Capillary Refill : Height, Weight, BMI Height: 5'3.00" Weight: 155lbs. 8.0oz. 70.491990nd; 30.67 BMI Method:Stated General Appearance: WD/WN, mild distress HEENT: PERRL/EOMI, normal ENT inspection, pharynx normal Neck: non-tender, normal inspection Respiratory: lungs clear, normal breath sounds, no respiratory distress, no accessory muscle use Cardiovascular: regular rate, rhythm, no murmur, other (Edema of LLE) Gastrointestinal: normal bowel sounds, non tender, soft Extremities: other (pitting edema with hot erythema of the left lower leg and foot. Positive pedal pulse. This area is very tender to the touch.) Neurologic/Psychiatric: other (decreased level of alertness, post ictal and/or under the influence of Versed. Moves all 4 extremities. Speech slurred at baseline and worse at this time.) Crainal Nerves: normal hearing, PERRL, abnormal speech Motor/Sensory: no motor deficit, no sensory deficit Skin: normal color, warm/dry, other (hot tender erythema of the left lower leg) Focused Exam Lactate Level 01/08/20 01:30: Lactic Acid Level 1.51 Lactic Acid Level Laboratory Tests Test 01/08/20 01:30 Lactic Acid Level 1.51 MMOL/L (0.50-2.00) Procedures/Interventions Date of ETT Placement: Sep 17, 2019 Time of ETT Placement: 1745 Progress/Results/Core Measures Results/Orders Lab Results Laboratory Tests Test 01/08/20 01:30 Range/Units White Blood Count 12.7 H 4.3-11.0 10^3/uL Red Blood Count 3.21 L 4.35-5.85 10^6/uL Hemoglobin 9.2 L 11.5-16.0 G/DL Hematocrit 28 L 35-52 % Mean Corpuscular Volume 86 80-99 FL Mean Corpuscular Hemoglobin 29 25-34 PG Mean Corpuscular Hemoglobin Concent 33 32-36 G/DL Red Cell Distribution Width 16.9 H 10.0-14.5 % Platelet Count 317 130-400 10^3/uL Mean Platelet Volume 11.0 H 7.4-10.4 FL Neutrophils (%) (Auto) 86 H 42-75 % Lymphocytes (%) (Auto) 8 L 12-44 % Monocytes (%) (Auto) 6 0-12 % Eosinophils (%) (Auto) 0 0-10 % Basophils (%) (Auto) 0 0-10 % Neutrophils # (Auto) 11.0 H 1.8-7.8 X 10^3 Lymphocytes # (Auto) 1.0 1.0-4.0 X 10^3 Monocytes # (Auto) 0.7 0.0-1.0 X 10^3 Eosinophils # (Auto) 0.1 0.0-0.3 10^3/uL Basophils # (Auto) 0.0 0.0-0.1 10^3/uL Prothrombin Time 15.2 H 12.2-14.7 SEC INR Comment 1.2 0.8-1.4 Activated Partial Thromboplast Time 46 H 24-35 SEC D-Dimer 2.48 H 0.00-0.49 UG/ML Sodium Level 129 L 135-145 MMOL/L Potassium Level 3.5 L 3.6-5.0 MMOL/L Chloride Level 98 98-107 MMOL/L Carbon Dioxide Level 15 L 21-32 MMOL/L Anion Gap 16 H 5-14 MMOL/L Blood Urea Nitrogen 74 H 7-18 MG/DL Creatinine 4.83 H 0.60-1.30 MG/DL Estimat Glomerular Filtration Rate 9 BUN/Creatinine Ratio 15 Glucose Level 186 H 70-105 MG/DL Lactic Acid Level 1.51 0.50-2.00 MMOL/L Calcium Level 8.0 L 8.5-10.1 MG/DL Corrected Calcium 8.5 8.5-10.1 MG/DL Magnesium Level 2.2 1.6-2.4 MG/DL Total Bilirubin 0.3 0.1-1.0 MG/DL Aspartate Amino Transf (AST/SGOT) 67 H 5-34 U/L Alanine Aminotransferase (ALT/SGPT) 75 H 0-55 U/L Alkaline Phosphatase 82 40-136 U/L Total Creatine Kinase 2355 H 29-168 U/L C-Reactive Protein High Sensitivity > 16.00 H 0.00-0.50 MG/DL Total Protein 6.5 6.4-8.2 GM/DL Albumin 3.4 3.2-4.5 GM/DL Serum Alcohol < 10 <10 MG/DL My Orders Orders - SANTHOSH LOWE MD Alcohol (01/08/2029) Cbc With Automated Diff (01/08/20) Comprehensive Metabolic Panel (01/08/20) Hs C Reactive Protein (01/08/20) Fibrin Degradation Products (01/08/20) Drug Screen Stat (Urine) (01/08/20) Magnesium (01/08/20:) Ua Culture If Indicated (01/08/20) Chest 1 View, Ap/Pa Only (01/08/20:29) Ct Head/Cervical Spine Wo (01/08/20:29) Ns Iv 1000 Ml (Sodium Chloride 0.9%) (01/08/20 01:36) Ns Iv 1000 Ml (Sodium Chloride 0.9%) (01/08/20:55) Blood Culture (01/08/20:55) Sputum Culture (01/08/20:55) Protime With Inr (01/08/20:55) Partial Thromboplastin Time (01/08/20:55) Ed Iv/Invasive Line Start (01/08/20:55) Vital Signs Adult Sepsis Patie Q15M (3/28/20 01:55) O2 (01/08/20 01:55) Remove Rings In Anticipation O (01/08/20 01:55) Lactic Acid Analyzer (01/08/20 01:55) Levetiracetam Injection (Keppra Injectio (01/08/20 09:00) Ns Iv 1000 Ml (Sodium Chloride 0.9%) (01/08/20 02:42) Levetiracetam Injection (Keppra Injectio (01/08/20 02:37) Ns (Ivpb) (Sodium Chloride 0.9% Ivpb Bag (01/08/20 02:39) Piperacillin Sodium/Tazobactam (Zosyn Vi (01/08/20 03:00) Creatine Kinase (01/08/20 03:44) Ns Iv 1000 Ml (Sodium Chloride 0.9%) (01/08/20 03:44) Vancomycin Injection (Vancomycin Injecti (01/08/20 04:00) Enoxaparin Injection (Lovenox Injection) (01/08/20 04:00) Norepinephrine 4 Mg/250 Ml (Norepinephri (01/08/20 04:45) Norepinephrine 4 Mg/250 Ml (Norepinephri (01/08/20 04:33) Medications Given in ED Current Medications Medications Dose Ordered Sig/Tad Route Start Time Stop Time Status Last Admin Dose Admin Enoxaparin Sodium 70 mg ONCE ONCE SC 01/08/20 04:00 01/08/20 04:01 DC 01/08/20 04:10 70 MG Piperacillin Sod/ Tazobactam Sod 2.25 gm/Sodium Chloride 100 ml @ 200 mls/hr ONCE ONCE IV 01/08/20 03:00 01/08/20 03:29 DC 01/08/20 04:05 200 MLS/HR Vital Signs/I&O 01/08/20 01/08/20 01/08/20 01/08/20 01:18 01:30 04:47 04:52 Temp 36.6 36.8 Pulse 70 71 70 Resp 22 22 B/P (MAP) 90/54 (66) 105/79 105/79 (88) Pulse Ox 97 97 94 O2 Delivery Nasal Cannula Nasal Cannula O2 Flow Rate 2.00 2.00 2.00 Progress Progress Note #1: Time: 04:05 Progress Note Patient was seen and examined immediately upon arrival. C-collar was attempted but patient refused. CT of the head and C-spine were obtained and no injuries were identified. Labs revealed a significant acute renal failure. Blood pressures have been marginal with systolic blood pressures in the 70s to 90s. She has received 2 L of IV normal saline thus far and her systolic blood pressure is now above 90. We will continue to hydrate with an additional 1 L normal saline bolus. She had a seizure lasting about 45 seconds in the ER. She was treated with Keppra 1000 mg IV and has not had any further seizures. Imaging of the left lower extremity and pelvis were also ordered. However, patient did not tolerate manipulation of the leg due to tenderness to touch. She refused to have the x-rays obtained. Patient is presumed to have cellulitis of the left lower leg. Her CRP is markedly elevated. However, DVT also cannot be ruled out at this time as she has a significantly elevated d-dimer. Ultrasound is not available at this time. We will empirically treat with Lovenox. Zosyn is being administered for initial antibiotic therapy at a renal dose. If time allows before transfer, we will also give vancomycin. Case has been discussed with Dr. Fowler at [facility] and he accepts her transfer. Opioids have not been given for pain management at this time due to patient's hypotension. Patient has not yet produced urine. Progress Note #2: Time: 04:45 Progress Note Patient received almost 3 L of IV fluid prior to transfer. She was still slightly hypertensive with a systolic blood pressure of 87. Levophed drip was initiated prior to transfer. Patient never did produce a urine specimen for us. Time did not allow for vancomycin infusion prior to transfer. Diagnostic Imaging Diagonstic Imaging: Xray Plain Films/CT/US/NM/MRI: chest Comments Chest x-ray viewed by me. Report not yet available. No definite consolidation or infiltrate to suggest pneumonia. Diagonstic Imaging: CT Plain Films/CT/US/NM/MRI: c-spine, head Comments CT head and C-spine viewed by me and [facility] report reviewed. No acute pa thology or injuries identified. Departure Impression Primary Impression: Acute renal failure Qualified Codes: N17.9 - Acute kidney failure, unspecified Additional Impressions: Acute hypotension Left leg cellulitis Seizure disorder Altered mental status Qualified Codes: R41.82 - Altered mental status, unspecified Elevated d-dimer Disposition: 02 XFER SHT-TRM HOSP Condition: Improved Transfer Transfer Reason: Exceeds level of care Time Spoke to Accepting Phy: 03:39 Transfer Progress Notes Transfer accepted by Dr. Fowler, pricing actuary at [facility]. Transfer Facility: [facility] Method of Transfer: EMS Departure-Patient Inst. Referrals: [facility] (PCP/Family) Primary Care Physician Copy Copies To 1: GAVI DEGROOT JOSHUA T MD Jan 08, 2020 03:13
[2020-01-08] MEDS ORDERED: ENOXAPARIN 80 MG/0.8 ML (LOVENOX) SYR SC ONE (04:00)
[2020-01-08] MEDS ORDERED: VANCOMYCIN INJECTION 750 MG in NS (IVPB) 250 ML IV SCH (04:00)
[2020-01-08] MEDS ORDERED: NOREPINEPHRINE 4 MG/250 ML 250 ML IV ONE (04:33)
[2020-01-08] MEDS ORDERED: NOREPINEPHRINE 4 MG/250 ML 250 ML IV SCH (04:45)
[2020-01-08 04:52] VITALS: BP 105/79
--- NOTE | 2020-01-08 06:22 | Diagnostic Imaging Report ---
EXAM: CHEST 1 VIEW, AP/PA ONLY INDICATION: Seizure. COMPARISON: 12/04/2019. FINDINGS: Left subclavian tunneled port CVC tip mid SVC. Normal heart size and central pulmonary vascularity. No focal pulmonary opacity, pleural effusion or pneumothorax. No acute osseous findings. No significant change. IMPRESSION: No acute cardiopulmonary findings. Dictated by: Dictated on workstation # [id number]
--- NOTE | 2020-01-08 06:24 | Diagnostic Imaging Report ---
PROCEDURE: CT head and CT cervical spine without contrast. TECHNIQUE: Multiple contiguous axial images were obtained through the brain and cervical spine without the use of intravenous contrast. Sagittal and coronal reformations through the cervical spine were then performed. Auto Exposure Controls were utilized during the CT exam to meet ALARA standards for radiation dose reduction. INDICATION: Seizure. COMPARISON: 08/26/2019. FINDINGS: CT HEAD: Moderate generalized cerebral and cerebellar parenchymal volume loss. No intracranial hemorrhage, mass effect, hydrocephalus or extra-axial fluid collections. No CT evidence of a territorial infarction. Osseous structures are intact. Visualized paranasal sinuses and mastoids are clear. CT cervical spine: Normal alignment. Vertebral body heights preserved. No fractures. Mild to moderate scattered degenerative endplate changes. No evidence of high-grade spinal canal narrowing. Lung apices are clear. IMPRESSION: No acute intracranial or cervical spine CT findings. Dictated by: Dictated on workstation # [id number]
[2020-01-08] MEDS ORDERED: LEVETIRACETAM INJECTION 1,000 MG in NS (IVPB) 100 ML IV SCH (09:00)
== END 2020-01-08 04:55 | disposition short-term general hospital (02) ==
LOC: ER 01:15 → EDUNIT# 01:15 → ER 04:55
DX: N17.9 Acute kidney failure, unspecified (principal); I95.9 Hypotension, unspecified; L03.116 Cellulitis of left lower limb; G40.909 Epilepsy, unspecified, not intractable, without status epilepticus; R41.82 Altered mental status, unspecified; J44.9 Chronic obstructive pulmonary disease, unspecified; I42.9 Cardiomyopathy, unspecified; I25.10 Atherosclerotic heart disease of native coronary artery without angina pectoris; I25.2 Old myocardial infarction; I10 Essential (primary) hypertension; E11.51 Type 2 diabetes mellitus with diabetic peripheral angiopathy without gangrene; K21.9 Gastro-esophageal reflux disease without esophagitis; F41.9 Anxiety disorder, unspecified; F31.9 Bipolar disorder, unspecified; M54.9 Dorsalgia, unspecified; M19.91 Primary osteoarthritis, unspecified site; Z87.19 Personal history of other diseases of the digestive system; Z87.820 Personal history of traumatic brain injury; Z85.41 Personal history of malignant neoplasm of cervix uteri
CPT/HCPCS: 36415; 70450; 71045; 72125; 80053; 80320; 82550; 83605; 83735; 85025; 85379; 85610; 85730; 86141; 87040

== ENCOUNTER 2020-02-05 20:20 | Inpatient (IN) | payer MEDICAID ==
[~2020-02-05] VITALS: Ht 160 cm; Wt 70.1 kg
--- OUTSIDE RECORDS SUMMARY | 2020-02-05 21:52 | XMS REPORT | Encounter Summary ---
Author Author [facility] Organization [facility] Address Unknown Phone Unavailable Care Team Providers Care Field Care Advocate Name Role Phone PauloSander Unavailable Anita Lopez MD Unavailable Joshua Lynch MD Unavailable Sherice Laurent DO PCP Armin Ventura MD Unavailable Flory Kim RN Unavailable Unavailable Zaynab Zhang MD Unavailable Unavailable Encounter Details Care Team Description Date Type Department 09/16/2019 [facility] [address] [address] Social History Date Tobacco Use [...] HEAD EXTERNAL IMAGING Routine 09/16/2019 12:00 AM FUNERAL DIRECTOR AND EMBALMER documented in this encounter Results * MRI HEAD EXTERNAL IMAGING (09/16/2019 12:00 AM FUNERAL DIRECTOR AND EMBALMER) Specimen Narrative Performed At This order has been auto finalized and does not contain a result. documented in this encounter Visit Diagnoses Not on filedocumented in this encounter Additional Health Concerns Resolved Time Infection Noted Time MRSA 06/14/2014 9:09 AM CDT documented as of this encounter
--- OUTSIDE RECORDS SUMMARY | 2020-02-05 21:52 | XMS REPORT | Clinical Summary ---
Author Author [facility] Organization [facility] Address Unknown Phone Unavailable Care Team Providers Care Maintenance Mechanic Name Role Phone PauloAngelaSandervika LANGE Unavailable Anita Lopez MD Unavailable Joshua Lynch MD Unavailable Sherice Laurent DO PCP Armin Ventura MD Unavailable Flory Kim RN Unavailable Unavailable Zaynab Zhang MD Unavailable Unavailable Source Comments Some departments are not documenting in the electronic medical record. If you d o not see the information that you expected, contact Release of Information in [facility] Information Management department at [phone] for further assistan ce in locating additional records.[facility] Allergies Comments Active Allergy Reactions Severity [...] Comments Vital Sign 110/80 11/11/2014 1:07 PM DIRECTOR COLLEGE Blood Pressure 72 11/11/2014 1:07 PM DIRECTOR COLLEGE Pulse 36.5 C (97.7 F) 11/11/2014 1:07 PM DIRECTOR COLLEGE Temperature 16 11/11/2014 1:07 PM DIRECTOR COLLEGE Respiratory Rate 94% 09/21/2014 7:45 AM DIRECTOR COLLEGE Oxygen Saturation - - Inhaled Oxygen Concentration 82.1 kg (181 lb) 11/11/2014 1:07 PM DIRECTOR COLLEGE Weight 160 cm (5' 3") 11/11/2014 1:07 PM DIRECTOR COLLEGE Height 32.06 11/11/2014 1:07 PM DIRECTOR COLLEGE Body Mass Index Plan of Treatment Health Maintenance Due Date Last Done Comments DTAP/TDAP VACCINES (1 - 1978 Tdap) PHYSICAL (COMPREHENSIVE) 1978 EXAM CERVICAL CANCER SCREENING 1981 BREAST CANCER SCREENING 2000 COLORECTAL CANCER 2010 SCREENING SHINGLES RECOMBINANT 2010 VACCINE (1 of 2) INFLUENZA VACCINE 07/13/2020 07/12/2014 HEPATITIS C SCREENING Completed 06/11/2014, 06/11/2014, 06/10/2014 HIV SCREENING Completed 06/11/2014 Results Not on filefrom Last 3 Months Additional Health Concerns Resolved Time Infection Noted Time MRSA 06/14/2014 9:09 AM CDT Advance Directives Patient General Utility Maintenance Repairer Explanation Type Date Recorded Advance 06/11/2014 9:42 [...]
--- OUTSIDE RECORDS SUMMARY | 2020-02-05 21:53 | XMS REPORT | Encounter Summary ---
Author Author [facility] Organization [facility] Address Unknown Phone Unavailable Care Team Providers Care Pl Sql Programmer Name Role Phone PauloSander Unavailable Anita Lopez MD Unavailable Joshua Lynch MD Unavailable Sherice Laurent DO PCP Armin Ventura MD Unavailable Flory Kim RN Unavailable Unavailable Zaynab Zhang MD Unavailable Unavailable Encounter Details Care Team Description Date Type Department 08/15/2019 [facility] [address] [address] Social History Date Tobacco Use [...]
--- OUTSIDE RECORDS SUMMARY | 2020-02-05 21:53 | XMS REPORT | Encounter Summary ---
Author Author [facility] Organization [facility] Address Unknown Phone Unavailable Care Team Providers Care Nanotechnologist Name Role Phone PauloSander Unavailable Anita Lopez MD Unavailable Joshua Lynch MD Unavailable Sherice Laurent DO PCP Armin Ventura MD Unavailable Flory Kim RN Unavailable Unavailable Zaynab Zhang MD Unavailable Unavailable Encounter Details Care Team Description Date Type Department 08/15/2019 [facility] [address] [address] Social History Date Tobacco Use [...]
--- OUTSIDE RECORDS SUMMARY | 2020-02-05 21:53 | XMS REPORT | Encounter Summary ---
Author Author [facility] Organization [facility] Address Unknown Phone Unavailable Care Team Providers Care Stringed Instrument Tuner Name Role Phone PauloSander Unavailable Anita Lopez MD Unavailable Joshua Lynch MD Unavailable Sherice Laurent DO PCP Armin Ventura MD Unavailable Flory Kim RN Unavailable Unavailable Zaynab Zhang MD Unavailable Unavailable Encounter Details Care Team Description Date Type Department 08/12/2019 [facility] [address] [address] Social History Date Tobacco Use [...]
--- OUTSIDE RECORDS SUMMARY | 2020-02-05 21:53 | XMS REPORT | Encounter Summary ---
Author Author [facility] Organization [facility] Address Unknown Phone Unavailable Care Team Providers Care Senior Benefits Specialist Name Role Phone PauloSander Unavailable Anita Lopez MD Unavailable Joshua Lynch MD Unavailable Sherice Laurent DO PCP Armin Ventura MD Unavailable Flory Kim RN Unavailable Unavailable Zaynab Zhang MD Unavailable Unavailable Encounter Details Care Team Description Date Type Department 08/12/2019 [facility] [address] [address] Social History Date Tobacco Use [...]
--- NOTE | 2020-02-05 21:55 | ED General ---
History of Present Illness Date Seen by Provider: Feb 05, 2020 Time Seen by Provider: 21:00 Initial Comments 59-year-old female brought in by EMS. Patient brought in with "seizure-like activity" patient with known seizure disorder and methamphetamine abuse. Family called and reports that patient has not been taking her medications. Patient had an unknown seizure time but believed to be greater than 30 minutes. Patient was given Narcan in the field with no response. Patient sister called reports that patient is a DO NOT RESUSCITATE, DO NOT INTUBATE. Patient has had multiple similar presentations to this ER in the past. No other history of present illness available at this time Allergies and Home Medications Allergies Coded Allergies: nitrous oxide (Verified Allergy, Unknown, 06/08/07) Home Medications Acetaminophen 500 Mg Tablet, 1,000 MG PO Q6H PRN for PAIN-MILD, (Reported) Amlodipine Besylate 10 Mg Tablet, 5 MG PO BID, (Reported) Carvedilol 25 Mg Tab, 25 MG PO BID, (Reported) Clonidine HCl 0.2 Mg Tablet, 0.2 MG PO BID, (Reported) Famotidine 20 Mg Tablet, 20 MG PO BID, (Reported) Hydralazine HCl 100 Mg Tablet, 100 MG PO TID, (Reported) Levetiracetam 1,000 Mg Tablet, 1,000 MG PO BID, (Reported) Loratadine 10 Mg Tablet, 10 MG PO DAILY, (Reported) Losartan Potassium 100 Mg Tablet, 100 MG PO DAILY, (Reported) Oxcarbazepine 600 Mg Tablet, 600 MG PO BID, (Reported) Phenobarbital 64.8 Mg Tablet, 129.6 MG PO BID, (Reported) TAKES 2 (64.8MG) TABS TO EQUAL 129.6 Prazosin HCl 1 Mg Capsule, 1 MG PO HS, (Reported) Quetiapine Fumarate 25 Mg Tablet, 12.5 MG PO BID, (Reported) Patient Home Medication List Home Medication List Reviewed: Yes Review of Systems Review of Systems Constitutional: see HPI EENTM: see HPI Respiratory: see HPI Cardiovascular: see HPI Musculoskeletal: see HPI Psychiatric/Neurological: See HPI Past [id number] Hx Past Med/Social Hx: Reviewed Nursing Past Med/Soc Hx Patient Social History Drug of Choice: + IV METH USE, THC USE Type Used: Cigarettes 2nd Hand Smoke Exposure: Yes Recent Hopitalizations: No (10/09/19) Immunizations Up To Date Tetanus Booster (TDap): Less than 5yrs PED Vaccines UTD: No Date of Pneumonia Vaccine: Jul 13, 2012 Date of Influenza Vaccine: Jul 15, 2019 Seasonal Allergies Seasonal Allergies: No Past Medical History Surgeries: Yes Abdominal, Adenoidectomy, Cardiac, Section, Hysterectomy, Oophorectomy, Tonsillectomy Respiratory: Yes COPD Currently Using CPAP: No Currently Using BIPAP: No Cardiac: Yes Cardiomyopathy, Coronary Artery Disease, Endocarditis, Heart Attack, Hypertension, Peripheral Vascular, Valvular Heart Disease Neurological: Yes Concussion, Seizure Disorder, Stroke, Traumatic Brain Injury 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 Disorders: No Female 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 HAND [employer] History: Hysterectomy, Menopausal Sexually Transmitted Disease: No HIV/AIDS: No Genitourinary: Yes Kidney Infection, Bladder Infection, Kidney Stones, Renal Failure, UTI-Chronic Gastrointestinal: Yes Abdominal Hernia, Gastroesophageal Reflux, Pancreatitis, Hepatitis Musculoskeletal: Yes (CHRONIC NECK AND BACK PAIN; POOR AMBULATION) Arthritis, Chronic Back Pain Endocrine: Yes (HGB AIC WAS 6.5 ON 12/23/18) Diabetes, Non-Insulin dep HEENT: Yes (POOR DENTITION) Loss of Vision: Denies Hearing Impairment: Denies Cancer: No Cervical Psychosocial: Yes (POLYSUBSTANCE ABUSE) Anxiety, Bipolar, Depression Integumentary: No Blood Disorders: Yes (ANEMIA OF CHRONIC DISEASE) Adverse Reaction/Blood Tranf: No Family Medical History Abdominal aortic aneurysm 03 FATHER Alcoholism 03 FATHER 03 MOTHER 09 SISTER 09 SISTER Cancer 03 FATHER Cataract 03 FATHER 03 MOTHER Chest pain 03 MOTHER Family history: Diabetes mellitus 03 MOTHER Family history: Hypertension 03 MOTHER Family history: Thyroid disorder 03 MOTHER Headache 09 SISTER Heart disease 03 MOTHER History of drug abuse 03 FATHER 09 SISTER Myocardial infarction 03 MOTHER No Family History of: Isael's disease Aphasia Cancer of colon Congenital heart disease Congestive heart failure Cystic fibrosis Dementia Dysphagia Family history: Allergy Family history: Alzheimer's disease Family history: Arthritis Family history: Asthma Family history: Breast disease Family history: Cardiovascular disease Family history: Coronary thrombosis Family history: Gastrointestinal disease Family history: Glaucoma Family history: Osteoporosis Hearing loss Hereditary disease History of - anemia History of - disorder History of - respiratory disease Human immunodeficiency virus (HIV) seropositivity Hypercholesterolemia Infertile Kidney disease Malignant neoplasm of lung Parkinson's disease Prostate cancer Psychotic disorder Seizure disorder Stroke Tuberculosis Visual impairment AAA, Heart Disease, Diabetes Physical Exam Vital Signs Vital Signs - First Documented 02/05/20 02/05/20 02/05/20 20:59 21:15 23:43 Temp 35.6 Pulse 59 Resp 14 B/P (MAP) 119/54 (75) Pulse Ox 100 O2 Delivery Room Air O2 Flow Rate 3.00 Capillary Refill : Height, Weight, BMI Height: 5'3.00" Weight: 155lbs. 8.0oz. [id number]; 29.00 BMI Method:Stated General Appearance: Other (unresponsive) Eyes: Bilateral Eye Other (pinpoint) Respiratory: Chest Non Tender, Lungs Clear Cardiovascular: Regular Rate, Rhythm, No Edema Extremity: Normal Capillary Refill Neurologic/Psychiatric: Other (unresponsive, limited exam will somewhat respond to pain) Skin: Normal Color Focused Exam Lactate Level 02/05/20 21:05: Lactic Acid Level 1.02 Lactic Acid Level Procedures/Interventions Date of ETT Placement: Sep 17, 2019 Time of ETT Placement: 1745 Progress/Results/Core Measures Suspected Sepsis SIRS Temperature: Pulse: Respiratory Rate: Laboratory Tests 02/05/20 21:05: White Blood Count 5.5 Blood Pressure / Mean: 02/05/20 21:05: Lactic Acid Level 1.02 Laboratory Tests 02/05/20 21:05: Creatinine 1.83H, Platelet Count 347, Total Bilirubin 0.2 Results/Orders Lab Results Laboratory Tests Test 02/05/20 21:05 02/05/20 21:08 02/05/20 22:00 Range/Units White Blood Count 5.5 4.3-11.0 10^3/uL Red Blood Count 3.81 L 4.35-5.85 10^6/uL Hemoglobin 10.7 L 11.5-16.0 G/DL Hematocrit 33 L 35-52 % Mean Corpuscular Volume 87 80-99 FL Mean Corpuscular Hemoglobin 28 25-34 PG Mean Corpuscular Hemoglobin Concent 32 32-36 G/DL Red Cell Distribution Width 16.7 H 10.0-14.5 % Platelet Count 347 130-400 10^3/uL Mean Platelet Volume 10.8 H 7.4-10.4 FL Sodium Level 131 L 135-145 MMOL/L Potassium Level 4.8 3.6-5.0 MMOL/L Chloride Level 104 98-107 MMOL/L Carbon Dioxide Level 17 L 21-32 MMOL/L Anion Gap 10 5-14 MMOL/L Blood Urea Nitrogen 53 H 7-18 MG/DL Creatinine 1.83 H 0.60-1.30 MG/DL Estimat Glomerular Filtration Rate 28 BUN/Creatinine Ratio 29 Glucose Level 82 70-105 MG/DL Lactic Acid Level 1.02 0.50-2.00 MMOL/L Calcium Level 8.3 L 8.5-10.1 MG/DL Corrected Calcium 8.6 8.5-10.1 MG/DL Total Bilirubin 0.2 0.1-1.0 MG/DL Aspartate Amino Transf (AST/SGOT) 13 5-34 U/L Alanine Aminotransferase (ALT/SGPT) 15 0-55 U/L Alkaline Phosphatase 82 40-136 U/L Total Protein 7.0 6.4-8.2 GM/DL Albumin 3.6 3.2-4.5 GM/DL Urine Color YELLOW Urine Clarity CLOUDY Urine pH 6.0 5-9 Urine Specific [place] 1.015 L 1.016-1.022 Urine Protein TRACE H NEGATIVE Urine Glucose (UA) NEGATIVE NEGATIVE Urine Ketones NEGATIVE NEGATIVE Urine Nitrite POSITIVE H NEGATIVE Urine Bilirubin NEGATIVE NEGATIVE Urine Urobilinogen 0.2 < = 1.0 MG/DL Urine Leukocyte Esterase 3+ H NEGATIVE Urine RBC (Auto) NEGATIVE NEGATIVE Urine RBC RARE /HPF Urine WBC 50-100 H /HPF Urine Squamous Epithelial Cells 0-2 /HPF Urine Crystals NONE /LPF Urine Bacteria LARGE H /HPF Urine Casts NONE /LPF Urine Mucus SMALL H /LPF Urine Culture Indicated YES Urine Opiates Screen NEGATIVE NEGATIVE Urine Oxycodone Screen NEGATIVE NEGATIVE Urine Methadone Screen NEGATIVE NEGATIVE Urine Propoxyphene Screen NEGATIVE NEGATIVE Urine Barbiturates Screen POSITIVE H NEGATIVE Ur Tricyclic Antidepressants Screen NEGATIVE NEGATIVE Urine Phencyclidine Screen NEGATIVE NEGATIVE Urine Amphetamines Screen POSITIVE H NEGATIVE Urine Methamphetamines Screen POSITIVE H NEGATIVE Urine Benzodiazepines Screen NEGATIVE NEGATIVE Urine Cocaine Screen NEGATIVE NEGATIVE Urine Cannabinoids Screen NEGATIVE NEGATIVE Blood Gas Puncture Site LEFT RADIAL Blood Gas Patient Temperature 36 Arterial Blood pH 7.28 *L 7.37-7.43 Arterial Blood Partial Pressure CO2 41 35-45 MMHG Arterial Blood Partial Pressure O2 145 H 79-93 MMHG Arterial Blood HCO3 19 L 23-27 MMOL/L Arterial Blood Total CO2 20.3 L 21.0-31.0 MMOL/L Arterial Blood Oxygen Saturation 98 94-100 % Arterial Blood Base Excess -6.9 L -2.5-2.5 MMOL/L Dominguez Test POSITIVE Blood Gas Ventilator Setting NO Blood Gas Inspired Oxygen RA My Orders Orders - MAURILIO GARZAR L DO Arterial Blood Gas (02/05/20 21:51) Cbc No Diff (02/05/20 21:51) Comprehensive Metabolic Panel (02/05/20 21:51) Drug Screen Stat (Urine) (02/05/20 21:51) Lactic Acid Analyzer (02/05/20 21:51) Ua Culture If Indicated (02/05/20 21:51) Naloxone Injection (Narcan Injection) (02/05/20 22:00) Ct Head Wo (02/05/20 21:53) Catheter(Urinary) Insert & Ass 03,15 (02/05/20 21:57) Urine Culture (02/05/20 21:08) Ed Iv/Invasive Line Start (02/05/20 22:24) Ns Iv 1000 Ml (Sodium Chloride 0.9%) (02/05/20 22:24) Levetiracetam Injection (Keppra Injectio (02/06/20 09:00) Ns (Ivpb) (Sodium Chloride 0.9% Ivpb Bag (02/05/20 22:47) Levetiracetam Injection (Keppra Injectio (02/05/20 22:47) Water (Sterile) For Injection (Sterile W (02/05/20 22:51) Ceftriaxone For Iv Use (Rocephin For I (02/05/20 22:51) O2 (02/05/20 22:00) Medications Given in ED Vital Signs/I&O 02/05/20 02/05/20 02/05/20 02/05/20 20:59 21:15 22:00 23:43 Temp 35.6 35.6 35.6 Pulse 59 55 67 Resp 14 14 14 B/P (MAP) 119/54 (75) 119/54 110/70 (75) Pulse Ox 100 O2 Delivery Room Air Nasal Cannula Nasal Cannula Nasal Cannula O2 Flow Rate 3.00 3.00 Capillary Refill : Progress Note : Time: 22:54 Progress Note Patient remained decreased responsive to have her stay. There was no further seizure activity upon arrival to the ER. Patient was maintaining her airway. She is also a DNR/DNI at this point. Patient will be given Thousand milligrams IV. She does have what appears to be a urinary tract infection so we'll treat her with Rocephin thousand milligrams. Discussed with Dr. Sarkar. We'll admit patient to the floor for further management. Patient was transferred in stable condition Departure Communication (Admissions) Time/Spoke to Admitting Phy: 20:50 Impression Primary Impression: Seizure disorder Additional Impressions: Unresponsive state Methamphetamine abuse Disposition: HOME, SELF-CARE Condition: Stable Admissions Decision to Admit Reason: Admit from ER (General) Decision to Admit/Date: Feb 05, 2020 Time/Decision to Admit Time: 20:30 Departure-Patient Inst. Referrals: [facility] (PCP/Family) Primary Care Physician DONAVAN GARZA DO Feb 05, 2020 21:54
--- OUTSIDE RECORDS SUMMARY | 2020-02-05 21:59 | XMS REPORT ---
Author Author Michelle LANGE Organization [facility] Address [address] [place] [address] Care Team Providers Care Jamb Cutter Name Role Phone TRACEE LANGE Unavailable PROBLEMS Type Condition ICD9-CM Code [id number] Code Onset Dates Condition S tatus SNOMED Code Problem Lumbar neuritis M54.16 Active 1281 27677 Problem Thoracic neuritis M54.14 Active 58 870768 Problem Hypertension, benign I10 Active 70673787 Problem Cardiomyopathy I42.9 Active 60433 001 Problem Epileptic seizure, generalized G40.309 Active 63322359 Problem Excessive daytime sleepiness G47.19 A ctive 695709695243 Problem GERD (gastroesophageal reflux disease) K21.9 Active 503408671 Problem Panlobular emphysema J43.1 Active 0693536 Problem Intracranial injury, without loss of consciousness, subsequent encounter S06.9X0D Active 800565579 Problem Ventricular arrhythmia I49.9 Active 68526157 Problem Mood disorder F39 Active 611482 05 Problem Seasonal allergic rhinitis, unspecified trigger J3 0.2 Active 808321437 Problem Observed sleep apnea G47.30 Active 87225763 ALLERGIES No Information ENCOUNTERS Encounter Location Date Diagnosis [facility] [address] [facility] [id number] [address] [place] [address] Jan, [facility] [address] [facility] [id number] [address] [place] [phone] Jan, [facility] [address] [facility] [id number] [address] [place] [address] Jan, [facility] [address] [facility] [id number] [address] [place] [address] Jan, [facility] [address] [facility] [id number] [address] [place] [address] Jan, Panlobular emphysema J43.1 [facility] [address] [facility] [id number] [address] [place] [address] Dec, Mood disorder F39 [facility] [address] [facility] [id number] [address] [place] [id number] 17 Nov, 2019 [facility] [address] [facility] [id number] [address] [place] [phone] Oct, Cardiomyopathy I42.9 ; Hyper tension, benign I10 and Mood disorder F39 [facility] [address] [facility] [id number] [address] [place] [address] Oct, Epileptic seizure, generaliz ed G40.309 [facility] [address] [facility] [id number] [address] [place] [phone] 16 Oct, 2019 Panlobular emphysema J43.1 [facility] [address] [facility] [id number] [address] [place] [address] Oct, [facility] [address] [facility] [id number] [address] [place] [address] Oct, Panlobular emphysema J43.1 [facility] [address] [facility] [id number] [address] [place] [phone] Sep, Unspecified convulsions R56. 9 [facility] [address] [facility] [id number] [address] [place] [phone] Aug, Seizures R56.9 [facility] [address] [facility] [id number] [address] [place] [phone] Aug, [facility] [address] [facility] [id number] [address] [place] [phone] Aug, Hypertension, benign I10 [facility] [address] [facility] [id number] [address] [place] [phone] Aug, [facility] [address] [facility] [id number] [address] [place] [phone] Aug, [facility] [address] [facility] [id number] [address] [place] [phone] Aug, [facility] [address] [facility] [id number] [address] [place] [address] Aug, Panlobular emphysema J43.1 ; Observed sleep apnea G47.30 and Excessive daytime sleepiness G47.19 [facility] [address] [facility] [id number] [address] [place] [address] Aug, [facility] [address] [facility] [id number] [address] [place] [address] Jun, Seizures R56.9 [facility] [address] [facility] [id number] [address] [place] [phone] Jun, [facility] [address] [facility] [id number] [address] [place] [phone] Jun, [facility] [address] [facility] [id number] [address] [place] [phone] Jun, [facility] [address] [facility] [id number] [address] [place] [address] May, Acute right-sided low back p ain without sciatica M54.5 [facility] [address] [facility] [id number] [address] [place] [address] May, Acute right-sided low back p ain without sciatica M54.5 [facility] [address] [facility] [id number] [address] [place] [address] Apr, High risk medication use Z79 .899 ; Acute septic pulmonary embolism without acute cor pulmonale I26.90 and Cellulitis of leg without foot L03.119 [facility] [address] [facility] [id number] [address] [place] [phone] Jan, [facility] [address] [facility] [id number] [address] [place] [address] Jan, Seizures R56.9 [facility] [address] [facility] [id number] [address] [place] [address] Dec, Seizures R56.9 [facility] [address] [facility] [id number] [address] [place] [address] Nov, Dysuria R30.0 and Urinary tr act infection without hematuria, site unspecified N39.0 [facility] [address] [facility] [id number] [address] [place] [address] Nov, [facility] [address] [facility] [id number] [address] [place] [phone] Nov, Seizures R56.9 [facility] [address] [facility] [id number] [address] [place] [id number] Sep, Seizures R56.9 [facility] [address] [facility] [id number] [address] [place] [phone] Sep, Seasonal allergic rhinitis, unspecified trigger J30.2 [facility] [address] [facility] [id number] [address] [place] [address] Aug, Neck pain on left side M54.2 ; Mood disorder F39 and GERD (gastroesophageal reflux disease) K21.9 [facility] [address] [facility] [id number] [address] [place] [address] Aug, Seizures R56.9 [facility] [address] [facility] [id number] [address] [place] [phone] Aug, Mood disorder F39 ; Neck dionicio n on left side M54.2 and Hypertension, benign I10 [facility] [address] [facility] [id number] [address] [place] [address] Aug, [facility] [address] [facility] [id number] [address] [place] [phone] Aug, [facility] [address] [facility] [id number] [address] [place] [id number] Jul, [facility] [address] [facility] [id number] [address] [place] [id number] Jul, Hypertension, benign I10 [facility] [address] [facility] [id number] [address] [place] [address] Jul, [facility] [address] [facility] [id number] [address] [place] [address] Jul, Thoracic neuritis M54.14 ; P ain of left leg M79.605 and Pain in right leg M79.604 [facility] [address] [facility] [id number] [address] [place] [address] Jun, Seizures R56.9 [facility] [address] [facility] [id number] [address] [place] [phone] May, [facility] [address] [place] [id number] [address] [place] [phone] May, [facility] [address] [place] [id number] [address] [place] [address] May, [facility] [address] [facility] [id number] [address] [place] [address] May, Seizures R56.9 [facility] [address] [facility] [id number] [address] [place] [address] May, [facility] [address] [place] [id number] [address] [place] [address] May, Delirium R41.0 [facility] [address] [place] [id number] [address] [place] [address] Apr, [facility] [address] [place] [id number] [address] [place] [address] February, Ventricular arrhythmia I49.9 [facility] [address] [facility] [id number] [address] [place] [address] February, [facility] [address] [place] [id number] [address] [place] [address] Dec, Thoracic neuritis M54.14 ; L umbar neuritis M54.16 and Epileptic seizure, generalized G40.309 [facility] [address] [address] Sep, Epileptic seizure, generaliz ed G40.309 and Lumbar neuritis M54.16 [place] [address] [address] Aug, Thoracic neuritis M54.14 and Lumbar neuritis M54.16 [place] [address] [address] Jun, [place] [address] [address] Jun, Abscess of leg, left L02.416 [place] [address] [address] May, Lumbar neuritis M54.16 ; Tho racic neuritis M54.14 ; Intracranial injury, without loss of consciousness, subsequent encounter S06.9X0D and Cardiomyopathy I42.9 [place] [address] [address] Apr, Lumbar neuritis M54.16 [place] [address] [address] Apr, [place] [address] [address] Apr, Elevated liver enzymes R74.8 and Renal insufficiency N28.9 [place] [address] [address] Apr, Lumbar neuritis M54.16 ; Tho racic neuritis M54.14 ; Hypertension, benign I10 ; Cardiomyopathy I42.9 and Epileptic seizure, generalized G40.309 [place] [address] [address] Mar, [place] [address] [address] February, [place] [address] [address] February, Lumbar neuritis M54.16 ; Tho racic neuritis M54.14 ; Hypertension, benign I10 ; Cardiomyopathy I42.9 and Epileptic seizure, generalized G40.309 [facility] [address] [address] Dec, [place] [address] [address] Sep, Epigastric mass R19.06 [place] [address] [address] Sep, Epigastric mass R19.06 [place] [address] [address] Sep, [place] [address] [address] Sep, Epigastric mass R19.06 [place] [address] [address] Sep, Epigastric mass R19.06 and L roque mass R91.8 [facility] [address] [address] Jul, Shortness of breath R06.02 ; Dysuria R30.0 and Acute bronchitis, unspecified organism J20.9 [place] [address] [address] Jul, [place] [address] [address] 15 Jun, 2016 Seizures R56.9 ; Thoracic ne uritis M54.14 ; Lumbar neuritis M54.16 and GERD (gastroesophageal reflux disease) K21.9 [facility] [address] [address] Jan, [place] [address] [address] Sep, [facility] [address] [address] Sep, Intracranial injury, without loss of consciousness, subsequent encounter S06.9X0D ; Cardiomyopathy I42.9 ; GERD (gastroesophageal reflux disease) K21.9 ; Hypertension, benign I10 ; Thoracic neuritis M54.14 and Lumbar neuritis M54.16 [facility] [address] [address] Mar, [facility] [address] [address] Mar, Coronary atherosclerosis of unspecified type of vessel, [place] or graft 414.00 ; Unspecified essential hypertension 401.9 ; Thoracic or lumbosacral neuritis or radiculitis, unspecified 724.4 and Other convulsions 780.39 [facility] [address] [address] Jan, [facility] [address] [address] Jan, [facility] [address] [address] Nov, [facility] [address] [address] Nov, [facility] [address] [address] Nov, [facility] [address] [address] Nov, [facility] [address] [address] Nov, [facility] [address] [address] Nov, [facility] [address] [address] Nov, [facility] [address] [id number] [address] [place] [address], [place] [address] Nov, 2014 [facility] [address] [id number] [address] [place] [address], [place] [address] Nov, 2014 [facility] [address] [id number] [address] [place] [address], [place] [address] Nov, [facility] [address] [id number] [address] [place] [address], [place] [address] Sep, [facility] [address] [id number] [address] [place] [address], [place] [address] Sep, [facility] [address] [id number] [address] [place] [address], [place] [address] Aug, [facility] [address] [id number] [address] [place] [address], [place] [address] Aug, [facility] [address] [id number] [address] [place] [address], [place] [address] Aug, [facility] [address] [id number] [address] [place] [address], [place] [address] Aug, [facility] [address] [id number] [address] [place] [address], [place] [address] Jul, [facility] [address] [id number] [address] [place] [address], [place] [address] Jul, [facility] [address] [id number] [address] [place] [address] Jul, [facility] [address] [id number] [address] [place] [address], [place] [address] Jul, [facility] [address] [id number] [address] [place] [address], [place] [address] Jun, [facility] [address] [id number] [address] [place] [address], [place] [address] Jun, [facility] [address] [id number] [address] [place] [address], [place] [address] Jun, [facility] [address] [id number] [address] [place] [address], [place] [address] May, [facility] [address] [id number] [address] [place] [address], [place] [address] May, [facility] [address] [id number] [address] [place] [address], [place] [address] May, [facility] [address] [id number] [address] [place] [address], [place] [address] May, [facility] [address] [id number] [address] [place] [address], [place] [address] May, [facility] [address] [id number] [address] [place] [address], [place] [address] May, [facility] [address] [id number] [address] [place] [address], [place] [address] May, [facility] [address] [id number] [address] [place] [address], [place] [address] May, [facility] [address] [id number] [address] [place] [address], [place] [address] February, [facility] [address] [id number] [address] [place] [address], [place] [address] February, [facility] [address] [id number] [address] [place] [address], [place] [address] Jan, [facility] [address] [id number] [address] [place] [address], [place] [address] Jan, [facility] [address] [id number] [address] [place] [address], [place] [address] Jan, [facility] [address] [id number] [address] [place] [address], [place] [address] Jan, [facility] [address] [id number] [address] [place] [address], [place] [address] Nov, [facility] [address] [id number] [address] [place] [address], [place] [address] Nov, [facility] [address] [id number] [address] [place] [address], [place] [address] Nov, [facility] [address] [id number] [address] [place] [address], [place] [address] Nov, [facility] [address] [id number] [address] [place] [address], [place] [address] Sep, [facility] [address] [id number] [address] [place] [address], [place] [address] Sep, [facility] [address] [id number] [address] [place] [address], [place] [address] Sep, [facility] [address] [id number] [address] [place] [address], [place] [address] Sep, [facility] [address] [id number] [address] [place] [address], [place] [address] Sep, [facility] [address] [id number] [address] [place] [address], [place] [address] Sep, [facility] [address] [id number] [address] [place] [address], [place] [address] Jul, [facility] [address] [id number] [address] [place] [address], [place] [address] Jul, [facility] [address] [id number] [address] [place] [address] 30 Jun, 2013 [facility] [address] [id number] [address] [place] [address], [place] [address] 23 Jun, 2013 [facility] [address] [id number] [address] [place] [address], [place] [address] 17 Jun, 2013 [facility] [address] [id number] [address] [place] [address], [place] [address] May, [facility] [address] [place], [place] [id number] May, [facility] [address] [id number] [address] [place] [address], [place] [address] May, [facility] [address] [id number] [address] [place] [address], [place] [address] May, [facility] [address] [id number] [address] [place] [address], [place] [address] May, [facility] [address] [id number] [address] [place] [address], [place] [address] May, [facility] [address] [id number] [address] [place] [address], [place] [address] May, [facility] [address] [id number] [address] [place] [address], [place] [address] Apr, [facility] [address] [id number] [address] [place] [address], [place] [address] Apr, [facility] [address] [id number] [address] [place] [address], [place] [address] Apr, [facility] [address] [id number] [address] [place] [address], [place] [address] Apr, [facility] [address] [id number] [address] [place] [address], [place] [address] Mar, [facility] [address] [id number] [address] [place] [address], [place] [address] February, [facility] [address] [id number] [address] [place] [address], [place] [address] Jan, [facility] [address] [id number] [address] [place] [address], [place] [address] Dec, [facility] [address] [id number] [address] [place] [address], [place] [address] Dec, [facility] [address] [id number] [address] [place] [address], [place] [address] Dec, [facility] [address] [id number] [address] [place] [address], [place] [id number] 28 Nov, 2012 [facility] [address] [id number] [address] [place] [address], [place] [address] Nov, [facility] [address] [id number] [address] [place] [address], [place] [address] Nov, [facility] [address] [id number] [address] [place] [address], [place] [address] 16 Oct, 2012 [facility] [address] [id number] [address] [place] [address], [place] [address] Oct, [facility] [address] [id number] [address] [place] [address], [place] [address] Sep, [facility] [address] [id number] [address] [place] [address], [place] [address] Sep, [facility] [address] [id number] [address] [place] [address], [place] [address] Sep, [facility] [address] [id number] [address] [place] [address], [place] [address] Sep, [facility] [address] [id number] [address] [place] [address], [place] [address] Sep, [facility] [address] [id number] [address] [place] [address], [place] [address] Sep, [facility] [address] [id number] [address] [place] [address], [place] [address] Aug, [facility] [address] [id number] [address] [place] [address], [place] [address] Aug, [facility] [facility] [address] [id number] [address] [place] [address], [place] [address] Aug, [facility] [address] [id number] [address] [place] [address], [place] [address] Aug, [facility] [address] [id number] [address] [place] [address], [place] [address] Aug, [facility] [address] [id number] [address] [place] [address], [place] [address] Aug, [facility] [address] [id number] [address] [place] [address], [place] [address] Aug, [facility] [address] [id number] [address] [place] [address], [place] [address] Aug, [facility] [address] [id number] [address] [place] [address], [place] [address] Aug, [facility] [address] [id number] [address] [place] [address], [place] [address] Aug, [facility] [address] [id number] [address] [place] [address], [place] [address] Jul, [facility] [address] [id number] [address] [place] [address], [place] [address] Jul, [facility] [address] [id number] [address] [place] [address] Jul, [facility] [address] [id number] [address] [place] [address], [place] [address] Jul, [facility] [address] [id number] [address] [place] [address] Jul, [facility] [address] [id number] [address] [place] [id number] Jul, [facility] [address] [id number] [address] [place] [id number] Jul, [facility] [address] [id number] [address] [place] [address] Jul, [facility] [address] [id number] [address] [place] [id number] 18 Jul, 2012 [facility] [address] [id number] [address] [place] [id number] 17 Jul, 2012 [facility] [address] [id number] [address] [place] [id number] 17 Jul, 2012 [facility] [address] [id number] [address] [place] [address], [place] [address] Jul, [facility] [address] [id number] [address] [place] [address], [place] [address] 17 Jul, 2012 [facility] [address] [id number] [address] [place] [address], [place] [address] Jul, [facility] [address] [id number] [address] [place] [address], [place] [address] Jul, [facility] [address] [id number] [address] [place] [address], [place] [address] 28 Jun, 2012 [facility] [address] [id number] [address] [place] [address], [place] [address] 24 Jun, 2012 [facility] [address] [id number] [address] [place] [address], [place] [address] Jun, [facility] [address] [id number] [address] [place] [address], [place] [address] May, [facility] [address] [id number] [address] [place] [address], [place] [address] May, [facility] [address] [id number] [address] [place] [address], [place] [address] Mar, [facility] [address] [id number] [address] [place] [address], [place] [address] Mar, [facility] [address] [id number] [address] [place] [address], [place] [address] February, [facility] [address] [id number] [address] [place] [address], [place] [address] February, [facility] [address] [id number] [address] [place] [address], [place] [address] Nov, [facility] [address] [id number] [address] [place] [address], [place] [address] Oct, [facility] [address] [id number] [address] [place] [address], [place] [address] 11 Oct, 2011 [facility] [address] [id number] [address] [place] [address], [place] [address] Oct, [facility] [address] [id number] [address] [place] [address], [place] [address] Aug, [facility] [address] [id number] [address] [place] [address], [place] [address] Jul, [facility] [address] [id number] [address] [place] [address], [place] [address] Sep, [facility] [address] [id number] [address] [place] [address], [place] [address] Aug, [facility] [address] [id number] [address] [place] [address], [place] [address] Jul, [facility] [address] [id number] [address] [place] [address], [place] [address] Apr, [facility] [address] [id number] [address] [place] [address], [place] [address] February, [facility] [address] [id number] [address] [place] [address], [place] [address] Sep, [facility] [address] [id number] [address] [place] [address], [place] [address] 30 Sep, 2009 [facility] [address] [id number] [address] [place] [address], [place] [address] Sep, [facility] [address] [id number] [address] [place] [address], [place] [address] 15 Apr, 2009 [facility] [address] [id number] [address] [place] [address], [place] [address] Mar, [facility] [address] [id number] [address] [place] [address], [place] [address] February, [facility] [address] [id number] [address] [place] [address] [address] Jan, [facility] [address] 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
--- OUTSIDE RECORDS SUMMARY | 2020-02-05 21:59 | XMS REPORT ---
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 Mophead Trimmer And Wrapper Name Role Phone Migration, Doctor Unavailable Unavailable PROBLEMS Type Condition ICD9-CM Code [id number] Code Onset Dates Condition S tatus SNOMED Code Problem Lumbar neuritis M54.16 Active 1281 67428 Problem Thoracic neuritis M54.14 Active 58 274008 Problem Hypertension, benign I10 Active 07488507 Problem Cardiomyopathy I42.9 Active 77067 001 Problem Epileptic seizure, generalized G40.309 Active 52486152 Problem Excessive daytime sleepiness G47.19 A ctive [id number] Problem GERD (gastroesophageal reflux disease) K21.9 Active 136209771 Problem Panlobular emphysema J43.1 Active 1731555 Problem Intracranial injury, without loss of consciousness, subsequent encounter S06.9X0D Active 143437303 Problem Ventricular arrhythmia I49.9 Active 37474527 Problem Mood disorder F39 Active 020906 05 Problem Seasonal allergic rhinitis, unspecified trigger J3 0.2 Active 225728020 Problem Observed sleep apnea G47.30 Active 70003211 ALLERGIES No Information ENCOUNTERS Encounter Location Date Diagnosis [place] [address] [id number] [address] [place] [id number] Dec, Mood disorder F39 [facility] [id number] [address] [place] [address] Nov, [facility] [address] [id number] [address] [place] [address] Oct, Cardiomyopathy I42.9 ; Hyper tension, benign I10 and Mood disorder F39 [facility] [id number] [address] [place] [address] Oct, Epileptic seizure, generaliz ed G40.309 [facility] [place] [address] [id number] [address] [place] [address] Oct, Panlobular emphysema J43.1 [facility] [place] [address] [id number] [address] [place] [address] Oct, [facility] [place] [address] [id number] [address] [place] [address] Oct, Panlobular emphysema J43.1 [facility] [place] [address] [facility] [id number] [address] [place] [address] Sep, Unspecified convulsions R56. 9 [facility] [place] [address] [id number] [address] [place] [address] Aug, Seizures R56.9 [facility] [address] [id number] [address] [place] [address] Aug, [facility] [address] [facility] [id number] [address] [place] [address] Aug, Hypertension, benign I10 [facility] [place] [address] [id number] [address] [place] [id number] Aug, [facility] [place] [address] [id number] [address] [place] [id number] Aug, [facility] [place] [address] [facility] [id number] [address] [place] [address] Aug, [facility] [place] [address] [facility] [id number] [address] [place] [address] Aug, Panlobular emphysema J43.1 ; Observed sleep apnea G47.30 and Excessive daytime sleepiness G47.19 [facility] [place] [address] [id number] [address] [place] [address] Aug, [facility] [place] [address] [facility] [id number] [address] [place] [id number] Jun, Seizures R56.9 [facility] [place] [address] [facility] [id number] [address] [place] [address] Jun, [facility] [place] [address] [facility] [id number] [address] [place] [address] Jun, [facility] [place] [address] [id number] [address] [place] [address] Jun, [facility] [place] [address] [facility] [id number] [address] [place] [address] May, Acute right-sided low back p ain without sciatica M54.5 [facility] [place] [address] [id number] [address] [place] [id number] May, Acute right-sided low back p ain without sciatica M54.5 [facility] [place] [address] [id number] [address] [place] [address] Apr, High risk medication use Z79 .899 ; Acute septic pulmonary embolism without acute cor pulmonale I26.90 and Cellulitis of leg without foot L03.119 [facility] [place] [address] [facility] [id number] [address] [place] [address] Jan, [facility] [address] [facility] [id number] [address] [place] [address] Jan, Seizures R56.9 [facility] [place] [address] [facility] [id number] [address] [place] [address] Dec, Seizures R56.9 [facility] [address] [facility] [id number] [address] [place] [address] Nov, Dysuria R30.0 and Urinary tr act infection without hematuria, site unspecified N39.0 [facility] [place] [address] [id number] [address] [place] [address] Nov, [facility] [place] [address] [facility] [id number] [address] [place] [address] Nov, Seizures R56.9 [facility] [place] [address] [facility] [id number] [address] [place] [address] Sep, Seizures R56.9 [facility] [place] [address] [facility] [id number] [address] [place] [id number] Sep, Seasonal allergic rhinitis, unspecified trigger J30.2 [facility] [place] [address] [facility] [id number] [address] [place] [address] Aug, Neck pain on left side M54.2 ; Mood disorder F39 and GERD (gastroesophageal reflux disease) K21.9 [facility] [place] [address] [facility] [id number] [address] [place] [address] Aug, Seizures R56.9 [facility] [place] [address] [facility] [id number] [address] [place] [address] Aug, Mood disorder F39 ; Neck dionicio n on left side M54.2 and Hypertension, benign I10 [facility] [place] [address] [facility] [id number] [address] [place] [address] Aug, [facility] [place] [address] [id number] [address] [place] [address] Aug, [facility] [place] [address] [facility] [id number] [address] [place] [address] Jul, [facility] [place] [id number] [address] [place] [id number] Jul, Hypertension, benign I10 [facility] [place] [address] [facility] [id number] [address] [place] [address] Jul, [facility] [place] [id number] [address] [place] [id number] Jul, Thoracic neuritis M54.14 ; P ain of left leg M79.605 and Pain in right leg M79.604 [facility] [place] [address] [facility] [id number] [address] [place] [address] Jun, Seizures R56.9 [facility] [place] [address] [facility] [id number] [address] [place] [address] May, [facility] [place] [address] [facility] [id number] [address] [place] [address] May, [facility] [place] [address] [facility] [id number] [address] [place] [address] May, [facility] [place] [id number] [place] [address] May, Seizures R56.9 [facility] [place] [id number] [address] [place] [address] May, [facility] [place] [id number] [place] [address] May, Delirium R41.0 [facility] [place] [id number] [place] [address] Apr, [facility] [place] [id number] [place] [address] February, Ventricular arrhythmia I49.9 [facility] [place] [address] [address] February, [facility] [place] [id number] [place] [address] Dec, Thoracic neuritis M54.14 ; L umbar neuritis M54.16 and Epileptic seizure, generalized G40.309 [place] [address] [address] Sep, Epileptic seizure, generaliz ed G40.309 and Lumbar neuritis M54.16 [facility] [place] [address] [address] Aug, Thoracic neuritis M54.14 and Lumbar neuritis M54.16 [facility] [place] [id number] [place] [address] Jun, [facility] [place] [address] [address] Jun, Abscess of leg, left L02.416 [facility] [place] [id number] [place] [address] May, Lumbar neuritis M54.16 ; Tho racic neuritis M54.14 ; Intracranial injury, without loss of consciousness, subsequent encounter S06.9X0D and Cardiomyopathy I42.9 [facility] [place] [address] [address] Apr, Lumbar neuritis M54.16 [place] [address] [address] Apr, [place] [address] [address] Apr, Elevated liver enzymes R74.8 and Renal insufficiency N28.9 [place] [address] [address] Apr, Lumbar neuritis M54.16 ; Tho racic neuritis M54.14 ; Hypertension, benign I10 ; Cardiomyopathy I42.9 and Epileptic seizure, generalized G40.309 [place] [address] [address] Mar, [place] [address] [address] February, [place] [address] [address] February, Lumbar neuritis M54.16 ; Tho racic neuritis M54.14 ; Hypertension, benign I10 ; Cardiomyopathy I42.9 and Epileptic seizure, generalized G40.309 [place] [address] [address] Dec, [place] [address] [address] Sep, Epigastric mass R19.06 [place] [id number] [place] [address] Sep, Epigastric mass R19.06 [place] [address] [address] Sep, [facility] [address] [address] Sep, Epigastric mass R19.06 [place] [address] [address] Sep, Epigastric mass R19.06 and L roque mass R91.8 [facility] [address] [address] Jul, Shortness of breath R06.02 ; Dysuria R30.0 and Acute bronchitis, unspecified organism J20.9 [place] [address] [address] Jul, [place] [address] [address] Jun, Seizures R56.9 ; Thoracic ne uritis M54.14 ; Lumbar neuritis M54.16 and GERD (gastroesophageal reflux disease) K21.9 [facility] [address] [address] Jan, [place] [address] [address] Sep, [place] [address] [address] Sep, Intracranial injury, without loss of consciousness, subsequent encounter S06.9X0D ; Cardiomyopathy I42.9 ; GERD (gastroesophageal reflux disease) K21.9 ; Hypertension, benign I10 ; Thoracic neuritis M54.14 and Lumbar neuritis M54.16 [place] [address] [address] Mar, [place] [address] [address] Mar, Coronary atherosclerosis of unspecified type of vessel, reno-sparks or graft 414.00 ; Unspecified essential hypertension 401.9 ; Thoracic or lumbosacral neuritis or radiculitis, unspecified 724.4 and Other convulsions 780.39 [facility] [address] [id number] [address] [place] [address] 14 Jan, 2015 [facility] [address] [id number] [address] [place] [address] 13 Jan, 2015 [facility] [address] [id number] [address] [place] [address] Nov, 2014 [facility] [address] [id number] [address] [place] [address] Nov, 2014 [facility] [address] [id number] [address] [place] [address] Nov, 2014 [facility] [address] [id number] [address] [place] [address] Nov, 2014 [facility] [address] [id number] [address] [place] [address] Nov, [facility] [address] [id number] [address] [place] [address] Nov, [facility] [address] [id number] [address] [place] [address] Nov, [facility] [address] [facility] [id number] [address] [place] [address] Nov, [facility] [address] [id number] [address] [place] [address] Nov, [facility] [address] [id number] [address] [place] [address] Nov, [facility] [address] [id number] [address] [place] [address] Sep, [facility] [address] [facility] [id number] [address] [place] [address] Sep, [facility] [address] [id number] [address] [place] [address] Aug, [facility] [address] [id number] [address] [place] [address], [place] [address] Aug, [facility] [address] [id number] [address] [place] [address], [place] [address] Aug, [facility] [address] [id number] [address] [place] [address], [place] [address] Aug, [facility] [address] [id number] [address] [place] [address], [place] [address] Jul, [facility] [address] [id number] [address] [place] [address], [place] [address] Jul, [facility] [address] [id number] [address] [place] [address], [place] [address] Jul, [facility] [address] [id number] [address] [place] [address], [place] [address] Jul, [facility] [address] [id number] [address] [place] [address], [place] [address] Jun, [facility] [address] [id number] [address] [place] [address], [place] [address] Jun, [facility] [address] [id number] [address] [place] [address], [place] [address] Jun, [facility] [address] [id number] [address] [place] [address], [place] [address] May, [facility] [address] [id number] [address] [place] [address], [place] [address] May, [facility] [address] [id number] [address] [place] [address], [place] [address] May, [facility] [address] [id number] [address] [place] [address], [place] [address] May, [facility] [address] [id number] [address] [place] [address], [place] [address] May, [facility] [address] [id number] [address] [place] [address], [place] [address] May, [facility] [address] [id number] [address] [place] [address], [place] [address] May, [facility] [address] [id number] [address] [place] [address], [place] [address] May, [facility] [address] [id number] [address] [place] [address], [place] [address] February, [facility] [address] [id number] [address] [place] [address], [place] [address] February, [facility] [address] [id number] [address] [place] [address], [place] [address] Jan, [facility] [address] [id number] [address] [place] [address], [place] [address] Jan, [facility] [address] [id number] [address] [place] [address], [place] [address] Jan, [facility] [address] [id number] [address] [place] [address], [place] [address] Jan, [facility] [address] [id number] [address] [place] [address], [place] [address] Nov, [facility] [address] [id number] [address] [place] [address], [place] [address] Nov, [facility] [address] [id number] [address] [place] [address], [place] [address] Nov, [facility] [address] [id number] [address] [place] [address], [place] [address] Nov, [facility] [address] [id number] [address] [place] [address], [place] [address] Sep, [facility] [address] [id number] [address] [place] [address], [place] [address] Sep, [facility] [address] [id number] [address] [place] [address], [place] [address] Sep, [facility] [address] [id number] [address] [place] [address], [place] [address] Sep, [facility] [address] [id number] [address] [place] [address], [place] [address] Sep, [facility] [address] [id number] [address] [place] [address], [place] [address] Sep, [facility] [address] [id number] [address] [place] [address], [place] [address] Jul, [facility] [address] [id number] [address] [place] [address], [place] [address] Jul, [facility] [address] [id number] [address] [place] [address], [place] [address] Jun, [facility] [address] [id number] [address] [place] [address], [place] [address] Jun, [facility] [address] [id number] [address] [place] [address], [place] [address] Jun, [facility] [address] [id number] [address] [place] [address], [place] [address] May, [facility] [address] [place] [id number] May, [facility] [address] [id number] [address] [place] [address], [place] [address] May, [facility] [address] [id number] [address] [place] [address], [place] [address] May, [facility] [address] [id number] [place] [address], [place] [address] May, [facility] [address] [id number] [place] [address], [place] [address] May, [facility] [address] [id number] [place] [address], [place] [address] May, [facility] [address] [id number] [place] [address], [place] [address] Apr, [facility] [address] [id number] [place] [address], [place] [address] Apr, [facility] [address] [id number] [place] [address], [place] [address] Apr, [facility] [address] [id number] [place] [address], [place] [address] Apr, [facility] [address] [id number] [address] [place] [address], [place] [address] Mar, [facility] [address] [id number] [place] [address], [place] [address] February, [facility] [address] [id number] [place] [address], [place] [address] Jan, [facility] [address] [id number] [place] [address], [place] [address] Dec, [facility] [address] [id number] [place] [address], [place] [address] Dec, [facility] [address] [id number] [address] [place] [address], [place] [address] Dec, [facility] [address] [id number] [address] [place] [address], [place] [address] Nov, [facility] [address] [id number] [place] [address], [place] [address] Nov, [facility] [address] [id number] [place] [address], [place] [address] Nov, [facility] [address] [id number] [place] [address], [place] [address] Oct, [facility] [address] [id number] [address] [place] [address], [place] [address] Oct, [facility] [address] [id number] [place] [address], [place] [address] Sep, [facility] [address] [id number] [place] [address], [place] [address] Sep, [facility] [address] [id number] [place] [address], [place] [address] Sep, [facility] [address] [id number] [address] [place] [address], [place] [address] Sep, [facility] [address] [id number] [place] [address], [place] [address] Sep, [facility] [address] [id number] [address] [place] [address], [place] [address] Sep, [facility] [address] [id number] [address] [place] [address], [place] [address] Aug, [facility] [address] [id number] [place] [address], [place] [address] Aug, [facility] [address] [id number] [place] [address], [place] [address] Aug, [facility] [address] [id number] [address] [place] [address], [place] [address] Aug, [facility] [address] [id number] [place] [address], [place] [address] Aug, [facility] [address] [id number] [place] [address], [place] [address] Aug, [facility] [address] [id number] [address] [place] [address], [place] [address] Aug, [facility] [address] [id number] [place] [address], [place] [address] Aug, [facility] [address] [id number] [address] [place] [address], [place] [address] Aug, [facility] [address] [id number] [address] [place] [address], [place] [address] Aug, [facility] [address] [id number] [address] [place] [address], [place] [address] Jul, [facility] [address] [id number] [address] [place] [address], [place] [address] Jul, [facility] [address] [id number] [address] [place] [address], [place] [address] Jul, [facility] [address] [id number] [address] [place] [address], [place] [address] Jul, [facility] [address] [id number] [address] [place] [address], [place] [address] Jul, [facility] [address] [id number] [address] [place] [address], [place] [address] Jul, [facility] [address] [id number] [address] [place] [address], [place] [address] Jul, [facility] [address] [id number] [address] [place] [address], [place] [address] Jul, [facility] [address] [id number] [address] [place] [id number] Jul, [facility] [address] [id number] [address] [place] [address], [place] [address] Jul, [facility] [address] [id number] [address] [place] [address] Jul, [facility] [address] [id number] [address] [place] [id number] Jul, [facility] [address] [id number] [address] [place] [address] Jul, [facility] [address] [id number] [address] [place] [address] Jul, [facility] [address] [id number] [address] [place] [id number] 02 Jul, 2012 [facility] [address] [id number] [address] [place] [id number] 28 Jun, 2012 [facility] [address] [id number] [address] [place] [id number] 24 Jun, 2012 [facility] [address] [id number] [address] [place] [address], [place] [address] Jun, [facility] [address] [id number] [address] [place] [address], [place] [address] May, [facility] [address] [id number] [address] [place] [address], [place] [address] May, [facility] [address] [id number] [address] [place] [address], [place] [address] Mar, [facility] [address] [id number] [address] [place] [address], [place] [address] Mar, [facility] [address] [id number] [address] [place] [address], [place] [address] February, [facility] [address] [id number] [address] [place] [address], [place] [address] February, [facility] [address] [id number] [address] [place] [address], [place] [address] Nov, [facility] [address] [id number] [address] [place] [address], [place] [address] Oct, [facility] [address] [id number] [address] [place] [address], [place] [address] Oct, [facility] [address] [id number] [address] [place] [address], [place] [address] Oct, [facility] [address] [id number] [address] [place] [address], [place] [address] Aug, [facility] [address] [id number] [address] [place] [address], [place] [address] Jul, [facility] [address] [id number] [address] [place] [address], [place] [address] Sep, [facility] [address] [id number] [address] [place] [address], [place] [address] Aug, [facility] [address] [id number] [address] [place] [address] Jul, [facility] [place] [address] [id number] [address] [place] [id number] Apr, [facility] [place] [address] [id number] [address] [place] [id number] February, [facility] [place] [address] [id number] [address] [place] [id number] Sep, [facility] [place] [address] [id number] [address] [place] [address] Sep, [facility] [place] [address] [id number] [address] [place] [id number] Sep, [facility] [place] [address] [id number] [address] [place] [id number] Apr, [facility] [place] [address] [id number] [address] [place] [id number] Mar, [facility] [place] [address] [id number] [address] [place] [id number] February, [facility] [place] [address] [id number] [address] [place] [id number] Jan, [facility] [place] [address] [id number] [address] [place] [id number] Jul, IMMUNIZATIONS No Known Immunizations SOCIAL HISTORY Never Assessed REASON FOR VISIT PLAN OF CARE VITAL SIGNS MEDICATIONS Unknown Medications RESULTS No Results PROCEDURES No Known procedures INSTRUCTIONS MEDICATIONS ADMINISTERED No Known Medications MEDICAL (GENERAL) HISTORY Type Description Date Medical History Post-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/2013-ejection frac tion 30 % Medical History Chronic Obstructive pulmonary disease Medical History Hernia-repaired Medical History Hyperactive bladder Medical History [id number] 03/2011-6.1 % Medical History Epilepsy and recurrent [...] Hospitalization History Defibulator placement 02/2018 Hospitalization History [facility], [facility] - UTI 04/2018-05/14 018 Hospitalization History Via [facility] for dehydration 08/17/19
[2020-02-05] MEDS ORDERED: NALOXONE 2 MG/2 ML (NARCAN) SYR IV ONE (22:00)
[2020-02-05 22:05] LABS: HEMOGLOBIN 10.7 G/DL (11.5-16.0); MEAN PLATELET VOLUME 10.8 FL (7.4-10.4); RED CELL DISTRIBUTION WIDTH 16.7 % (10.0-14.5); WHITE BLOOD COUNT 5.5 10^3/uL (4.3-11.0)
[2020-02-05 22:05] LABS: BILIRUBIN,URINE NEGATIVE (NEGATIVE); CLARITY,URINE CLOUDY; COLOR,URINE YELLOW; GLUCOSE, URINE (UA) NEGATIVE (NEGATIVE); KETONES,URINE NEGATIVE (NEGATIVE); LEUKOCYTE ESTERASE ,URINE 3+ (NEGATIVE); NITRITE,URINE POSITIVE (NEGATIVE); PROTEIN,URINE TRACE (NEGATIVE)
--- NOTE | 2020-02-05 22:05 | NUR ---
2203-2MG NARCAN IV GIVEN. 5-NO AROUSAL BY PT AT THIS TIME.
--- OUTSIDE RECORDS SUMMARY | 2020-02-05 22:11 | XMS REPORT | Continuity of Care Document ---
Demographics Preferred Language Unknown Marital Status Unknown Sikhism Affiliation Unknown Race Unknown Ethnic Group Unknown Author Organization Unknown Address Unknown Phone Unavailable Allergies Active Description Code Type Severity Reaction Onset Reported/Identified Relationship to Patient Clinical Status Yes nitrous oxide [id number] Newton g Allergy Unknown N/A 06/08/2007 Yes AILEEN Inhibitors [id number] Dr ug Allergy Unknown N/A 05/25/2014 Medications [...] And Abscess Of Unspecified Sites 01/25/2009 ANISA VACUUM DRIER TENDER, TRACEE T 68 2.9 Cellulitis And Abscess [...] Respiratory Infections Of Unspecified Site 08/20/2010 KRANTHI PERCIADO MD 491.2 1 Obstructive Chronic Bronchitis With [...] TRACEE LANGE APRN 780.60 Fever Unspecified 03/19/2011 TARCEE LANGE APRN 78 4.0 Headache 03/19/2011 TRACEE [...] KRANTHI PRECIADO MD 462 Sore Throat 04/10/2011 KRANHTI PRECIADO MD 496 CHRONIC OBSTRUCTIVE PULMONARY DISEASE [...] QUENTIN TRAL HERNIA NOS 07/17/2011 Ot 571.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 01 CORONARY ATHEROSCLEROSIS OF [place] CORON 05/11/2013 NGOC CASTILLO MD Ot 425. 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 01 CORONARY ATHEROSCLEROSIS OF [place] CORON 09/14/2013 ABELARDO AMANDA MD Ot 425. [...] IMPLANTABLE CARDIAC DEFIBRILLATOR I 04/09/2014 NEERAJ VILLA VACUUM DRIER TENDER Ot 486 PNEUMONIA, ORGANISM NOS 04/09/2014 NEERAJ VILLA VACUUM DRIER TENDER Ot 511 .9 PLEURAL EFFUSION NOS 05/25/2014 [...] Ot K52.9 NONINFECTIVE GASTROENTERITIS AND COLITIS 02/13/2016 AKILA DO, HOLA K Ot N18.9 CHRONIC KIDNEY [...] KAILA DO, HOLA K Ot Z79.899 OTHER CONCAVER (CURRENT) DRUG THERAPY 08/05/2016 KAILA , HOLA [...] MD Ot I25.10 ATHSCL HEART DISEASE OF [place] CORONARY 11/23/2016 QUIN JONES MD Ot J44.9 CHRONIC OBSTRUCTIVE PULMONARY DISEASE, U 11/23/2016 QUIN JONES MD Ot R05 COUGH 11/23/2016 QUIN JONES MD Ot Z79.899 OTHER CONCAVER (CURRENT) DRUG THERAPY 11/26/2016 QUIN JONES MD Ot I25.10 ATHSCL HEART DISEASE OF [place] CORONARY 11/26/2016 QUIN JONES MD Ot J44.9 CHRONIC OBSTRUCTIVE PULMONARY DISEASE, U 11/26/2016 QUIN JONES MD Ot R05 COUGH 11/26/2016 QUIN JONES MD, Ot Z79.899 OTHER CONCAVER (CURRENT) DRUG THERAPY 12/26/2016 KAILA DO, HOLA [...] KAILA DO, HOLA K Ot Z79.899 OTHER CONCAVER (CURRENT) DRUG THERAPY 12/26/2016 KAILA DO, HOLA [...] MD Ot I25.10 ATHSCL HEART DISEASE OF [place] CORONARY 03/06/2017 QUIN JONES MD, Ot J44.9 CHRONIC OBSTRUCTIVE PULMONARY DISEASE, U 03/06/2017 QUIN JONES MD Ot K59.00 CONSTIPATION, UNSPECIFIED 03/06/2017 QUIN JONES MD Ot R10.30 LOWER ABDOMINAL PAIN, UNSPECIFIED 03/06/2017 QUIN JONES MD Ot Z79.899 OTHER CONCAVER (CURRENT) DRUG THERAPY 03/06/2017 ABELARDO AMANDA MD Ot 397. 0 TRICUSPID VALVE DISEASE 03/06/2017 ABELARDO AMNADA MD Ot 424. 0 MITRAL VALVE DISORDER 03/06/2017 ABELARDO AMANDA MD Ot 428. 0 CONGESTIVE HEART FAILURE NOS 03/06/2017 ABELARDO AMANDA MD Ot 428. 0 CONGESTIVE HEART FAILURE NOS 03/07/2017 QUIN JONES MD Ot I16.0 HYPERTENSIVE URGENCY 03/07/2017 QUIN JONES MD, Ot I25.10 ATHSCL HEART DISEASE OF [place] CORONARY 03/07/2017 QUIN JONES MD, Ot J44.9 CHRONIC OBSTRUCTIVE PULMONARY DISEASE, U 03/07/2017 QUIN JONES MD, Ot K59.00 CONSTIPATION, UNSPECIFIED 03/07/2017 QUIN JONES MD Ot R10.30 LOWER ABDOMINAL PAIN, UNSPECIFIED 03/07/2017 QUIN JONES MD, Ot Z79.899 OTHER INTERMEDIATE (CURRENT) DRUG THERAPY 06/18/2017 ABELARDO AMANDA MD [...] ORTIZ Ot I25.10 ATHSCL HEART DISEASE OF [place] CORONARY 06/18/2017 STAR ORTIZ Ot I25.2 OLD [...] Ot I25. 10 ATHSCL HEART DISEASE OF [place] CORONARY 02/04/2018 MICHAEL BURRELL MD Ot I25. [...] 02/04/2018 MICHAEL BURRELL MD Ot Z79. 51 INTERMEDIATE (CURRENT) USE OF INHALED STERO 02/04/2018 MICHAEL BURRELL MD Ot Z79. 52 INTERMEDIATE (CURRENT) USE OF SYSTEMIC STER 02/04/2018 MICHAEL [...] MD Ot Z88. 8 ALLERGY STATUS TO [facility] DRUG/MEDS/BIOL SUB 02/04/2018 MICHAEL BURRELL [...] Ot I25. 10 ATHSCL HEART DISEASE OF [place] CORONARY 02/05/2018 MICHAEL BURRELL MD Ot I25. [...] 02/05/2018 MICHAEL BURRELL MD Ot Z79. 51 CONCAVER (CURRENT) USE OF INHALED STERO 02/05/2018 MICHAEL BURRELL MD Ot Z79. 52 CONCAVER (CURRENT) USE OF SYSTEMIC STER 02/05/2018 MICHAEL [...] MD Ot Z88. 8 ALLERGY STATUS TO [facility] DRUG/MEDS/BIOL SUB 02/05/2018 MICHAEL BURRELL [...] DO Ot I25.10 ATHSCL HEART DISEASE OF [place] CORONARY 02/24/2018 GAVI DEGROOT DO Ot I27.20 PULMONARY HYPERTENSION, UNSPECIFIED 02/24/2018 GAVI DEGROOT DO Ot I34.0 NONRHEUMATIC MITRAL (VALVE) INSUFFICIENC 02/24/2018 GAVI DEGROOT DO Ot I42.0 DILATED CARDIOMYOPATHY 02/24/2018 GAVI DEGROOT DO Ot I50.21 ACUTE SYSTOLIC (CONGESTIVE) HEART FAILUR 02/24/2018 GAVI DEGROOT DO Ot N18.9 CHRONIC KIDNEY DISEASE, UNSPECIFIED 02/24/2018 GAVI DEGROOT DO Ot Z79.89 9 OTHER CONCAVER (CURRENT) DRUG THERAPY 02/24/2018 GAVI DEGROOT DO Ot G40.90 9 EPILEPSY, UNSP, NOT INTRACTABLE, WITHOUT 02/24/2018 AGUSTÍN DEGROOT DOA Alec Ot G89.29 OTHER CHRONIC PAIN 02/24/2018 GAVI DEGROOT DO Ot I12.9 HYPERTENSIVE CHRONIC KIDNEY DISEASE W ST 02/24/2018 GAVI DEGROOT DO Ot I25.10 ATHSCL HEART DISEASE OF [place] CORONARY 02/24/2018 GAVI DEGROOT DO Ot I27.20 PULMONARY HYPERTENSION, UNSPECIFIED 02/24/2018 GAVI DEGROOT DO Ot I34.0 NONRHEUMATIC MITRAL (VALVE) INSUFFICIENC 02/24/2018 GAVI DEGROOT DO Ot I42.0 DILATED CARDIOMYOPATHY 02/24/2018 GAVI DEGROOT DO Ot I50.21 ACUTE SYSTOLIC (CONGESTIVE) HEART FAILUR 02/24/2018 GAVI DEGROOT DO Ot N18.9 CHRONIC KIDNEY DISEASE, UNSPECIFIED 02/24/2018 GAVI DEGROOT DO Ot Z79.89 9 OTHER INTERMEDIATE (CURRENT) DRUG THERAPY 05/15/2018 Ot A41.9 SEPS [...] Ot I25.10 ATH SCL HEART DISEASE OF [place] CORONARY 05/15/2018 Ot I42.9 CARD IOMYOPATHY, UNSPECIFIED 05/15/2018 Ot 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 05/15/2018 Ot J43.9 EMPH YSEMA, UNSPECIFIED 05/15/2018 Ot K56.600 PA RTIAL INTESTINAL OBSTRUCTION, UNSPECIF 05/15/2018 Ot L03.115 CE LLULITIS OF RIGHT LOWER LIMB 05/15/2018 Ot L03.116 CE LLULITIS OF LEFT LOWER LIMB 05/15/2018 Ot N17.9 ACUT E KIDNEY FAILURE, UNSPECIFIED 05/15/2018 Ot N18.9 METAL SPRAYER MALIKA KIDNEY DISEASE, UNSPECIFIED 05/15/2018 Ot N39.0 [...] SMO 09/10/2018 NEERAJ VILLA APRN Ot Z79.51 INTERMEDIATE (CURRENT) USE OF INHALED STERO 09/10/2018 NEERAJ VILLA APRN Ot Z79.52 INTERMEDIATE (CURRENT) USE OF SYSTEMIC STER 09/10/2018 NEERAJ [...] APRN Ot Z88 .8 ALLERGY STATUS TO [facility] DRUG/MEDS/BIOL SUB 09/10/2018 NEERAJ VILLA [...] SMO 09/14/2018 NEERAJ VILLA APRN Ot Z79.51 INTERMEDIATE (CURRENT) USE OF INHALED STERO 09/14/2018 NEERAJ VILLA APRN Ot Z79.52 INTERMEDIATE (CURRENT) USE OF SYSTEMIC STER 09/14/2018 NEERAJ [...] SMO 09/29/2018 NEERAJ VILLA APRN Ot Z79.51 CONCAVER (CURRENT) USE OF INHALED STERO 09/29/2018 NEERAJ VILLA APRN Ot Z79.52 CONCAVER (CURRENT) USE OF SYSTEMIC STER 09/29/2018 NEERAJ [...] FOR SCREENING FOR OTHER BACTER 05/04/2019 Paolo PERKNIS MD Ot I34 .0 NONRHEUMATIC MITRAL (VALVE) [...] OBJE 05/04/2019 QUIN JONES MD Ot Z79.51 INTERMEDIATE (CURRENT) USE OF INHALED STERO 05/04/2019 QUIN [...] JONES MD, Ot Z88.8 ALLERGY STATUS TO [facility] DRUG/MEDS/BIOL SUB 05/04/2019 QUIN JONES [...] OBJE 05/10/2019 QUIN JONES MD, Ot Z79.51 CONCAVER (CURRENT) USE OF INHALED STERO 05/10/2019 QUIN [...] JONES MD Ot Z88.8 ALLERGY STATUS TO [facility] DRUG/MEDS/BIOL SUB 05/10/2019 QUIN JONES [...] RAJAN Ot I25.10 ATHSCL HEART DISEASE OF [place] CORONARY 07/10/2019 RAJAN VALDOVINOS DO Ot I38 [...] MD Ot Z91.1 9 PATIENT'S NONCOMPLIANCE W [facility] MEDICAL TR 08/27/2019 MATTHEW DAVID [...] MD, Ot I25.10 ATHSCL HEART DISEASE OF [place] CORONARY 08/27/2019 MATTHEW DAVID MD, Ot I25 [...] 08/27/2019 MATTHEW DAVID MD, Ot Z79.899 OTHER INTERMEDIATE (CURRENT) DRUG THERAPY 08/27/2019 MATTHEW DAVID MD, [...] MD Ot I25.10 ATHSCL HEART DISEASE OF [place] CORONARY 08/28/2019 MATTHEW DAVID MD Ot I25 [...] 08/28/2019 MATTHEW DAVID MD, Ot Z79.899 OTHER CONCAVER (CURRENT) DRUG THERAPY 08/28/2019 MATTHEW DAVID MD, Ot Z87.820 PERSONAL HISTORY OF TRAUMATIC BRAIN INJU 08/28/2019 MATTHEW DAVID MD, Ot Z91.19 PATIENT'S NONCOMPLIANCE W [facility] MEDICAL TR 08/28/2019 MATTHEW DAVID MD, Ot Z99.81 DEPENDENCE ON SUPPLEMENTAL OXYGEN 08/29/2019 MATTHEW DAVID MD, Ot B19.20 UNSPECIFIED VIRAL 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 08/29/2019 MATTHEW DAVID MD, Ot D63 .8 ANEMIA IN OTHER CHRONIC DISEASES CLASSIF 08/29/2019 MATTHEW DAVDI MD, Ot E11.51 TYPE 2 DIABETES W [...] MD, Ot I25.10 ATHSCL HEART DISEASE OF [place] CORONARY 08/29/2019 MATTHEW DAVID MD, Ot I25 .2 OLD MYOCARDIAL INFARCTION 08/29/2019 MATTHEW DAVID MD, Ot I34 .0 NONRHEUMATIC MITRAL (VALVE) INSUFFICIENC 08/29/2019 MATTHEW DAVID MD, Ot I42 .8 OTHER CARDIOMYOPATHIES 08/29/2019 MATTHEW DAVID MD, Ot I50 .9 HEART FAILURE, UNSPECIFIED 08/29/2019 AMTTHEW DAVID MD, Ot 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 [...] 08/29/2019 MATTHEW DAVID MD, Ot Z79.899 OTHER CONCAVER (CURRENT) DRUG THERAPY 08/29/2019 MATTHEW DAVID MD, [...] MD Ot I25.10 ATHSCL HEART DISEASE OF [place] CORONARY 08/29/2019 MATTHEW DAVID MD, Ot I25 [...] 08/29/2019 MATTHEW DAVID MD, Ot Z79.899 OTHER CONCAVER (CURRENT) DRUG THERAPY 08/29/2019 MATTHEW DAVID MD, Ot Z87.820 PERSONAL HISTORY OF TRAUMATIC BRAIN INJU 08/29/2019 MATTHEW DAVID MD, Ot Z91.19 PATIENT'S NONCOMPLIANCE W OT MEDICAL TR 08/29/2019 MATTHEW DAVID MD, Ot Z99.81 DEPENDENCE ON SUPPLEMENTAL OXYGEN 09/18/2019 RAJAN VALDOVINOS DO Ot D63.8 ANEMIA IN OTHER CHRONIC DISEASES CLASSIF 09/18/2019 RAJAN VALDOVINOS DO Ot 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 09/18/2019 RAJAN VALDOVINOS DO Ot E11.51 TYPE [...] RAJAN Ot I25.10 ATHSCL HEART DISEASE OF [place] CORONARY 09/18/2019 ARUNA LANGE RAJAN Ot I25.2 [...] UNSPECIFIED 09/18/2019 ARUNA LANGE RAJAN Ot Z79.82 INTERMEDIATE (CURRENT) USE OF ASPIRIN 09/18/2019 ARUNA LANGE [...] APRN Ot I25.10 ATHSCL HEART DISEASE OF [place] CORONARY 10/09/2019 NEERAJ VILLA APRN Ot I25 .2 OLD MYOCARDIAL INFARCTION 10/09/2019 NEERAJ VILLA APRN, Ot J44 .9 CHRONIC OBSTRUCTIVE PULMONARY DISEASE, U 10/09/2019 NEERAJ VILLA APRN Ot K21 .9 GASTRO-ESOPHAGEAL REFLUX DISEASE WITHOUT 10/09/2019 NEERAJ VILLA APRN Ot R56 .9 UNSPECIFIED CONVULSIONS 10/09/2019 NEERAJ VILLA APRN Ot Z77.22 CNTCT W AND EXPSR TO ENVIRON TOBACCO SMO 10/09/2019 NEERAJ VILLA APRN Ot Z79.82 INTERMEDIATE (CURRENT) USE OF ASPIRIN 10/09/2019 NEERAJ VILLA [...] APRN Ot I25.10 ATHSCL HEART DISEASE OF [place] CORONARY 10/12/2019 NEERAJ VILLA APRN Ot I25 .2 OLD MYOCARDIAL INFARCTION 10/12/2019 NEERAJ VILLA APRN Ot J44 .9 CHRONIC OBSTRUCTIVE PULMONARY DISEASE, U 10/12/2019 NEERAJ VILLA APRN Ot K21 .9 GASTRO-ESOPHAGEAL REFLUX DISEASE WITHOUT 10/12/2019 NEERAJ VILLA APRN Ot R56 .9 UNSPECIFIED CONVULSIONS 10/12/2019 NEERAJ VILLA APRN Ot Z77.22 CNTCT W AND EXPSR TO ENVIRON TOBACCO SMO 10/12/2019 NEERAJ VILLA APRN Ot Z79.82 INTERMEDIATE (CURRENT) USE OF ASPIRIN 10/12/2019 NEERAJ VILLA APRN Ot Z82.49 FAMILY HX [...] Ot I34 .0 NONRHEUMATIC MITRAL (VALVE) INSUFFICIENC 10/28/2019 MICHAEL BURRELL MD Ot D64. 9 ANEMIA, UNSPECIFIED 10/28/2019 MICHAEL BURRELL MD Ot E11. 9 TYPE 2 DIABETES MELLITUS WITHOUT COMPLIC 10/28/2019 MICHAEL BURRELL MD Ot F31. 9 BIPOLAR DISORDER, UNSPECIFIED 10/28/2019 MICHAEL BURRELL MD Ot F41. 9 ANXIETY DISORDER, UNSPECIFIED 10/28/2019 MICHAEL BURRELL MD Ot G40.909 EPILEPSY, UNSP, NOT INTRACTABLE, WITHOUT 10/28/2019 MICHAEL BURRELL MD Ot I10 ESSENTIAL (PRIMARY) HYPERTENSION 10/28/2019 MICHAEL BURRELL MD Ot I25. 10 ATHSCL HEART DISEASE OF [place] CORONARY 10/28/2019 MICHAEL BURRELL MD Ot I25. 2 OLD MYOCARDIAL INFARCTION 10/28/2019 MICHAEL BURRELL MD Ot J44. 9 CHRONIC OBSTRUCTIVE PULMONARY DISEASE, U 10/28/2019 MICHAEL BURRELL MD Ot K21. 9 GASTRO-ESOPHAGEAL REFLUX DISEASE WITHOUT 10/28/2019 MICHAEL BURRELL MD Ot R53. 1 WEAKNESS 10/28/2019 MICHAEL BURRELL MD Ot Z77. 22 CNTCT W AND EXPSR TO ENVIRON TOBACCO SMO 10/28/2019 MICHAEL BURRELL MD, Ot Z79. 82 CONCAVER (CURRENT) USE OF ASPIRIN 10/28/2019 MICHAEL BURRELL MD, Ot Z82. 49 FAMILY HX OF ISCHEM HEART DIS AND OTH DI 10/28/2019 MICHAEL BURRELL MD Ot Z85. 41 PERSONAL HISTORY OF MALIGNANT NEOPLASM O 10/28/2019 MICHAEL BURRELL MD, Ot Z86. 73 PRSNL HX OF TIA (TIA), AND CEREB INFRC W 10/28/2019 MICHAEL BURRELL MD, Ot Z87.440 PERSONAL HISTORY OF URINARY (TRACT) INFE 10/28/2019 MICHAEL BURRELL MD, Ot Z87.442 PERSONAL HISTORY OF URINARY CALCULI 10/28/2019 MICHAEL BURRELL MD, Ot Z88. 8 ALLERGY STATUS TO OT DRUG/MEDS/BIOL SUB 10/28/2019 MICHAEL BURRELL MD Ot Z90.710 ACQUIRED ABSENCE OF BOTH CERVIX AND UTER 10/28/2019 MICHAEL BURRELL MD Ot Z90. 89 ACQUIRED ABSENCE OF OTHER ORGANS 11/01/2019 MICHAEL BURRELL MD Ot D64. 9 ANEMIA, UNSPECIFIED [...] Ot I25. 10 ATHSCL HEART DISEASE OF [place] CORONARY 11/01/2019 MICHAEL BURRELL MD Ot I25. 2 OLD MYOCARDIAL INFARCTION 11/01/2019 MICHAEL BURRELL MD Ot J44. 9 CHRONIC OBSTRUCTIVE PULMONARY DISEASE, U 11/01/2019 MICHAEL BURRELL MD Ot K21. 9 GASTRO-ESOPHAGEAL REFLUX DISEASE WITHOUT 11/01/2019 MICHAEL BURRELL MD Ot R53. 1 WEAKNESS 11/01/2019 MICHAEL BURRELL MD, Ot Z77. 22 CNTCT W AND EXPSR TO ENVIRON TOBACCO SMO 11/01/2019 MICHAEL BURRELL MD, Ot Z79. 82 INTERMEDIATE (CURRENT) USE OF ASPIRIN 11/01/2019 MICHAEL BURRELL [...] BOTH CERVIX AND UTER 11/01/2019 MICHAEL BURRELL MD Ot Z90. 89 ACQUIRED [...] MD Ot I25.10 ATHSCL HEART DISEASE OF [place] CORONARY 12/01/2019 JEANIE MERINO MD, Ot I25.2 OLD MYOCARDIAL INFARCTION 12/01/2019 JEANIE MERINO MD Ot I42.9 CARDIOMYOPATHY, UNSPECIFIED 12/01/2019 JEANIE MERINO MD, Ot J44.9 CHRONIC OBSTRUCTIVE PULMONARY DISEASE, U 12/01/2019 JEANIE MERINO MD, Ot K21.9 GASTRO-ESOPHAGEAL REFLUX DISEASE WITHOUT 12/01/2019 JEANIE MERINO MD, Ot M19.91 PRIMARY OSTEOARTHRITIS, UNSPECIFIED SITE 12/01/2019 JEANIE MERINO MD, Ot M54.9 DORSALGIA, UNSPECIFIED 12/01/2019 JEANIE EMRINO MD, Ot N17.9 ACUTE KIDNEY FAILURE, UNSPECIFIED [...] DIABETES MELLITUS WITH HYPERGLYCE 12/01/2019 JEANIE MERINO MD, Ot E86.0 DEHYDRATION 12/01/2019 JEANIE MERINO MD Ot F15.10 OTHER STIMULANT ABUSE, UNCOMPLICATED 12/01/2019 JEANIE MERINO MD Ot F31.9 BIPOLAR DISORDER, UNSPECIFIED 12/01/2019 JEANIE MERINO MD Ot F41.9 ANXIETY DISORDER, UNSPECIFIED 12/01/2019 JEANIE MERINO MD, Ot G40.909 EPILEPSY, UNSP, NOT INTRACTABLE, WITHOUT 12/01/2019 JEANIE MERINO MD Ot I12.9 HYPERTENSIVE CHRONIC KIDNEY DISEASE W ST 12/01/2019 JEANIE MERINO MD, Ot I25.10 ATHSCL HEART DISEASE OF [place] CORONARY 12/01/2019 JEANIE MERINO MD, Ot I25.2 OLD MYOCARDIAL INFARCTION 12/01/2019 JEANIE [...] ATROPHY OF KIDNEY (TERMINAL) 12/01/2019 JEANIE MERINO MD Ot N39.0 URINARY TRACT [...] F41.9 ANXIETY DISORDER, UNSPECIFIED 12/01/2019 JEANIE MERINO MD, Ot G40.909 EPILEPSY, UNSP, NOT INTRACTABLE, WITHOUT 12/01/2019 JEANIE MERINO MD Ot I12.9 HYPERTENSIVE CHRONIC KIDNEY DISEASE W ST 12/01/2019 JEANIE MERINO MD, Ot I25.10 ATHSCL HEART DISEASE OF [place] CORONARY 12/01/2019 JEANIE MERINO MD Ot I25.2 [...] MD Ot I25.10 ATHSCL HEART DISEASE OF [place] CORONARY 12/01/2019 JEANIE MERINO MD Ot I25.2 OLD MYOCARDIAL INFARCTION 12/01/2019 JEANIE MERINO MD Ot I42.9 CARDIOMYOPATHY, UNSPECIFIED 12/01/2019 SANDNESS MD, JEANIE M Ot J44.9 CHRONIC OBSTRUCTIVE PULMONARY DISEASE, U [...] MD, Ot I25.10 ATHSCL HEART DISEASE OF [place] CORONARY 12/02/2019 JEANIE MERINO MD, Ot I25.2 [...] AND CEREB INFRC W 12/02/2019 JEANIE MERINO MD Ot Z87.19 PERSONAL HISTORY [...] F31.9 BIPOLAR DISORDER, UNSPECIFIED 12/02/2019 JEANIE MERINO MD, Ot F41.9 ANXIETY DISORDER, UNSPECIFIED 12/02/2019 JEANIE MERINO MD, Ot G40.909 EPILEPSY, UNSP, NOT INTRACTABLE, WITHOUT 12/02/2019 JEANIE MERINO MD Ot I12.9 HYPERTENSIVE CHRONIC KIDNEY DISEASE W ST 12/02/2019 JEANIE MERINO MD Ot I25.10 ATHSCL HEART DISEASE OF [place] CORONARY 12/02/2019 JEANIE MERINO MD Ot I25.2 [...] Z66 DO NOT RESUSCITATE 12/02/2019 JEANIE MERINO MD, Ot Z86.19 PERSONAL HISTORY [...] MD Ot I25.10 ATHSCL HEART DISEASE OF [place] CORONARY 12/03/2019 JEANIE MERINO MD Ot I25.2 [...] ALTERED MENTAL STATUS, UNSPECIFIED 12/03/2019 JEANIE MERINO MD, Ot Z66 DO NOT RESUSCITATE 12/03/2019 JEANIE [...] OTHER CHRONIC DISEASES CLASSIF 12/03/2019 JEANIE MERINO MD, Ot E11.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 12/03/2019 JEANIE MERINO MD Ot E11.65 TYPE 2 DIABETES MELLITUS WITH HYPERGLYCE 12/03/2019 JEANIE MERINO MD Ot E86.0 DEHYDRATION 12/03/2019 JEANIE MERINO MD, Ot F15.10 OTHER STIMULANT ABUSE, UNCOMPLICATED 12/03/2019 JEANIE MERINO MD, Ot F31.9 BIPOLAR DISORDER, UNSPECIFIED 12/03/2019 JEANIE MERINO MD, Ot F41.9 ANXIETY DISORDER, UNSPECIFIED 12/03/2019 JEANIE MERINO MD, Ot G40.909 EPILEPSY, UNSP, NOT INTRACTABLE, WITHOUT 12/03/2019 JEANIE MERINO MD, Ot I12.9 HYPERTENSIVE CHRONIC KIDNEY DISEASE W ST 12/03/2019 JAENIE MERINO MD, Ot I25.10 ATHSCL HEART DISEASE OF [place] CORONARY 12/03/2019 JEANIE MERINO MD, Ot I25.2 [...] MD, Ot I25.10 ATHSCL HEART DISEASE OF [place] CORONARY 12/04/2019 JEANIE MERINO MD, Ot I25.2 [...] ACUTE KIDNEY FAILURE, UNSPECIFIED 12/04/2019 JEANIE MERINO MD Ot N18.9 CHRONIC KIDNEY DISEASE, UNSPECIFIED 12/04/2019 JEANIE MERINO MD, Ot N26.1 ATROPHY OF KIDNEY (TERMINAL) 12/04/2019 JEANIE MERINO MD Ot N39.0 URINARY TRACT INFECTION, SITE NOT SPECIF 12/04/2019 JEANIE MERINO MD Ot R41.82 ALTERED MENTAL STATUS, UNSPECIFIED 12/04/2019 JEANIE MERINO MD Ot Z66 DO NOT RESUSCITATE 12/04/2019 JEANIE MERINO MD Ot Z86.19 PERSONAL HISTORY [...] KIDNEY DISEASE W ST 12/04/2019 JEANIE MERINO MD Ot I25.10 ATHSCL HEART DISEASE OF [place] CORONARY 12/04/2019 JEANIE MERINO MD Ot I25.2 OLD MYOCARDIAL INFARCTION 12/04/2019 JEANIE MERINO MD Ot I42.9 CARDIOMYOPATHY, UNSPECIFIED 12/04/2019 JEANIE MERINO MD Ot J44.9 CHRONIC OBSTRUCTIVE [...] Ot Z87.891 PERSONAL HISTORY OF NICOTINE DEPENDENCE 01/11/2020 SANTHOSH LOWE MD Ot E11.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 01/11/2020 SANTHOSH LOWE MD Ot F31.9 BIPOLAR DISORDER, UNSPECIFIED 01/11/2020 SANTHOSH LOWE MD Ot F41.9 ANXIETY DISORDER, UNSPECIFIED 01/11/2020 SANTHOSH LOWE MD Ot G40.909 EPILEPSY, UNSP, NOT INTRACTABLE, WITHOUT 01/11/2020 SANTHOSH LOWE MD Ot I10 ESSENTIAL (PRIMARY) HYPERTENSION 01/11/2020 SANTHOSH LOWE MD Ot I25.10 ATHSCL HEART DISEASE OF [place] CORONARY 01/11/2020 SANTHOSH LOWE MD Ot I25.2 OLD MYOCARDIAL INFARCTION 01/11/2020 SANTHOSH LOWE MD Ot I42.9 CARDIOMYOPATHY, UNSPECIFIED 01/11/2020 SANTHOSH LOWE MD Ot I95.9 HYPOTENSION, UNSPECIFIED 01/11/2020 SANTHOSH LOWE MD Ot J44.9 CHRONIC OBSTRUCTIVE PULMONARY DISEASE, U 01/11/2020 SANTHOSH LOWE MD Ot K21.9 GASTRO-ESOPHAGEAL REFLUX DISEASE WITHOUT 01/11/2020 SANTHOSH LOWE MD Ot L03.116 CELLULITIS OF LEFT LOWER LIMB 01/11/2020 SANTHOSH LOWE MD Ot M19.91 PRIMARY OSTEOARTHRITIS, UNSPECIFIED SITE 01/11/2020 SANTHOSH LOWE MD Ot M54.9 DORSALGIA, UNSPECIFIED 01/11/2020 SANTHOSH LOWE MD Ot N17.9 ACUTE KIDNEY FAILURE, UNSPECIFIED 01/11/2020 SANTHOSH LOWE MD Ot R41.82 ALTERED MENTAL STATUS, UNSPECIFIED 01/11/2020 SANTHOSH LOWE MD Ot Z85.41 PERSONAL HISTORY OF MALIGNANT NEOPLASM O 01/11/2020 SANTHOSH LOWE MD Ot Z87.19 PERSONAL HISTORY OF OTHER DISEASES OF TH 01/11/2020 SANTHOSH LOWE MD Ot Z87.820 PERSONAL HISTORY OF TRAUMATIC BRAIN INJU 01/12/2020 MICHAEL BRURELL MD Ot D64. 9 ANEMIA, UNSPECIFIED 01/12/2020 MICHAEL BURRELL MD Ot E11. 9 TYPE 2 DIABETES MELLITUS WITHOUT COMPLIC 01/12/2020 MICHAEL BURRELL MD Ot F31. 9 BIPOLAR DISORDER, UNSPECIFIED 01/12/2020 MICHAEL BURRELL MD Ot F41. 9 ANXIETY DISORDER, UNSPECIFIED 01/12/2020 MICHAEL BURRELL MD Ot G40.909 EPILEPSY, UNSP, NOT INTRACTABLE, WITHOUT 01/12/2020 MICHAEL BURRELL MD Ot I10 ESSENTIAL (PRIMARY) HYPERTENSION 01/12/2020 MICHAEL BURRELL MD, Ot I25. 10 ATHSCL HEART DISEASE OF [place] CORONARY 01/12/2020 MICHAEL BURRELL MD, Ot I25. 2 OLD MYOCARDIAL INFARCTION 01/12/2020 MICHAEL BURRELL MD, Ot J44. 9 CHRONIC OBSTRUCTIVE PULMONARY DISEASE, U 01/12/2020 MICHAEL BURRELL MD, Ot K21. 9 GASTRO-ESOPHAGEAL REFLUX DISEASE WITHOUT 01/12/2020 MICHAEL BURRELL MD Ot R53. 1 WEAKNESS 01/12/2020 MICHAEL BURRELL MD Ot Z77. 22 CNTCT W AND EXPSR TO ENVIRON TOBACCO SMO 01/12/2020 MICHAEL BURRELL MD, Ot Z79. 82 CONCAVER (CURRENT) USE OF ASPIRIN 01/12/2020 MICHAEL BURRELL MD, Ot Z82. 49 FAMILY HX OF ISCHEM HEART DIS AND OTH DI 01/12/2020 MICHAEL BURRELL MD, Ot Z85. 41 PERSONAL HISTORY OF MALIGNANT NEOPLASM O 01/12/2020 MICHAEL BURRELL MD, Ot Z86. 73 PRSNL HX OF TIA (TIA), AND CEREB INFRC W 01/12/2020 MICHAEL BURRELL MD, Ot Z87.440 PERSONAL HISTORY OF URINARY (TRACT) INFE 01/12/2020 MICHAEL BURRELL MD, Ot Z87.442 PERSONAL HISTORY OF URINARY CALCULI 01/12/2020 MICHAEL BURRELL MD Ot Z88. 8 ALLERGY STATUS TO OTH DRUG/MEDS/BIOL SUB 01/12/2020 MICHAEL BURRELL MD Ot Z90.710 ACQUIRED ABSENCE OF BOTH CERVIX AND UTER 01/12/2020 MICHAEL BURRELL MD, Ot Z90. 89 ACQUIRED ABSENCE OF OTHER ORGANS Procedures Code Description Performed By Per formed On 38.93 VENO US CATHETERIZATION NEC 02/05/2010 53.69 OTH OPEN REP OTH HERNIA OF ANTER ABD W 02/05/2010 Urology Tom Mason 09/16/2012 General S Logan Kwan 10/28/2012 04366 ROUT INE VENIPUNCTURE 12/09/2012 22509 CMP 12/09/2012 05669 PHEN OBARBITAL 12/09/2012 10262 TSH 12/09/2012 90608 CBC 12/09/2012 PODIATRY W ILDE, CURT 03/02/2013 37.22 LEFT HEART CARDIAC CATH 05/10/2013 88.53 LT H EART ANGIOCARDIOGRAM 05/10/2013 88.56 MISAEL DENEEN ARTERIOGR-2 CATH 05/10/2013 44864 ECHO 2D 05/21/2013 86.04 OTHE R SKIN SUBQ I D 06/20/2013 Physical W [facility] Care, Mtc 06/29/[address] A BDOMEN & PELVIS W/ & W/O CONTRAST 12/10/2013 05751 OXIMETRY 12/10/2013 95357 ROUT INE VENIPUNCTURE 08/05/2014 43255 CBC 08/05/2014 8286932 GF R CALC (RESULT ONLY) 08/05/2014 81057 CMP 08/05/2014 99206 OXIMETRY 11/28/2014 J1885 BENJAMIN DOL PER 15 MG, INJ KETOROLAC TROMETHAMINE 11/28/2014 88140 EAR LAVAGE 02/02/2015 [id number] IN SERTION OF INFUSION DEV INTO SUP VENA 05/15/2018 [id number] IN SERTION OF ENDOTRACHEAL AIRWAY INTO TR 07/02/2019 [id number] RE SPIRATORY VENTILATION, LESS THAN 24 CO 07/02/2019 [id number] IN SERTION OF ENDOTRACHEAL AIRWAY INTO TR 08/26/2019 [id number] RE SPIRATORY VENTILATION, LESS THAN 24 CO 08/26/2019 [id number] RE SPIRATORY VENTILATION, 24- 96 CONSECUTI 08/26/2019 [id number] IN SERTION OF INFUSION DEV INTO SUP VENA 09/15/2019 [id number] IN SERTION OF TIVAD INTO CHEST SUBCU/FASC 09/15/2019 [id number] IN SERTION OF ENDOTRACHEAL AIRWAY INTO TR 09/17/2019 [id number] RE SPIRATORY VENTILATION, LESS THAN 24 CO [...] culture - 08/05/16 21:25 Bacterial urine culture [id number] NRG COLONY COUNT >100,000/ML NRG FTX;REPORTABLE SENSITIVITY [...] ncentration <= NRG Nitrofurantoin susceptibility test by mt nimum inhibitory concentration <= NRG Aztreonam susceptibility [...] >59 Influenza virus A and B antigen detectio n - 11/23/16 14:40 FLU RESULT NEGATIVE FOR INFLUENZA A AND B ANTIGENS BY [facility] Complete blood count (CBC) with automate d [...] culture NO NRG CBC With Differential/Platelet - 7 10:56 WBC 9.9 x10E3/uL 3.4-10.8 RBC 4.90 x10E6/uL 3.77-5.28 Hemoglobin 14.3 g/dL 11.1-15.9 Hematocrit 43.4 % 34.0-46.6 MCV 89 fL 79-97 MCH 29.2 pg 26.6-33.0 MCHC 32.9 g/dL 31.5-35.7 RDW 15.4 % 12.3-15.4 Platelets 381 x10E3/uL 150-379 Neutrophils 49 % Lymphs 42 % Monocytes 6 % Eos 2 % Basos 1 % Neutrophils (Absolute) 4.8 x10E3/uL 1.4- 7.0 Lymphs (Absolute) 4.2 x10E3/uL 0.7-3.1 Monocytes(Absolute) 0.6 x10E3/uL 0.1-0.9 Eos (Absolute) 0.2 x10E3/uL 0.0-0.4 Baso (Absolute) 0.1 x10E3/uL 0.0-0.2 Immature Granulocytes 0 % Immature Grans (Abs) 0.0 x10E3/uL 0.0-0. 1 Comp. Metabolic Panel (14) - 04/28/17 10 :56 Glucose, Serum 96 mg/dL 65-99 BUN 35 [...] mg/dL 0-99 Complete blood count (CBC) with automate d [...] 7-25 CREATININE 1.57 mg/dL 0.50-1.05 eGFR NON-AFR. [place] R[place] 36 mL/min/1.73m2 > OR = 60 eGFR [...] culture - 07/02/19 11:04 Bacterial urine culture [id number] NRG COLONY COUNT >100,000/ML NRG FTX;REPORTABLE SUSCEPTIBILITIES REPORTED 07-05-19, 1055 NRG Dirithromycin susceptibility test by dis k [...] OF GROWTH FEW NRG Bacterial sputum culture [id number] NRG Dirithromycin susceptibility test by dis k [...] < mg/dL <10 PHENOBARBITAL - 08/12/19 05:50 [id number] 11.7 % 15.0-40.0 Urine drug screening test [...] 0.0-0.1 Whole blood basic metabolic panel - 11/12/01 03:40 Serum or plasma sodium measurement (moles/volume) [...] culture - 08/15/19 01:10 Bacterial urine culture [id number] NRG COLONY COUNT 80,000 CFU/ML NRG FTX;REPORTABLE [...] 188.3 pg/mL <100.0 PHENOBARBITAL - 08/26/19 03:55 [id number] 8.0 % 15.0-40.0 Influenza virus A and [...] OF GROWTH Isolated NRG Bacterial blood culture [id number] NRG Methicillin resistant Staphylococcus aur eus (MRSA) [...] INFLUENZA A AND B ANTIGENS BY IA [facility] Bacterial blood culture - 10/27/19 22:42 QUANTITY OF GROWTH . [facility] Bacterial blood culture SEE COMMEN [facility] Complete blood count (CBC) with automate d [...] INFLUENZA A AND B ANTIGENS BY IA [facility] Comprehensive metabolic panel - 11/28/19 10:37 Serum [...] or plasma urea nitrogen/creatinine mass ratio 21 [facility] Serum or plasma creatinine measurement w ith calculation of estimated glomerular filtration rate 19 [facility] Serum or plasma glucose measurement (mass/volume) 126 [...] 11/28/19 10:37 FREE TEXT EXTERNAL (STREPTOCOCCUS GORDONII) NRG QUANTITY OF GROWTH Isolated NRG Bacterial blood culture [id number] NR FREE TEXT ENTRY 2 SUSCEPTIBILITY REPORTED 12/02/19 11:35 NRG FREE TEXT ENTRY 3 BY RML NRG Bacterial blood culture - 11/28/19 11:05 FREE TEXT EXTERNAL PROBABLE STREPTOCOCCUS GORDONII NRG QUANTITY OF GROWTH Isolated NRG Bacterial blood culture [id number] NR FREE TEXT ENTRY 2 REFER TO [...] culture - 11/28/19 11:20 Bacterial urine culture [id number] NRG COLONY COUNT >100,000/ML NRG FTX;REPORTABLE SUSCEPTIBILITY REPORTED 11/30/19 12: 05 NRG FREE TEXT ENTRY 2 PRELIM RAPID ID TEST AT [facility] 11/29 07:50 NRG FREE TEXT ENTRY 3 [...] by glucometer (mas s/volume) 96 mg/dL 70-110 Complete blood count (CBC) with automate d white blood cell (WBC) differential - 01/08/20 01:30 Blood leukocytes automated count (number/volume) 12.7 10*3/uL 4.3-11.0 Blood erythrocytes automated count (number/volume) 3.21 10*6/uL 4.35-5.85 Venous blood hemoglobin measurement (mass/volume) 9.2 g/dL 11.5-16.0 Blood hematocrit (volume fraction) 28 % 35-52 Automated erythrocyte mean corpuscular volume 86 [ foz_us] 80-99 Automated erythrocyte mean corpuscular h emoglobin (mass per erythrocyte) 29 pg 25-34 Automated erythrocyte mean corpuscular h emoglobin concentration measurement (mass/volume) 33 g/dL 32-36 Automated erythrocyte distribution width ratio 16. 9 % 10.0- 14.5 Automated blood platelet count (count/volume) 317 10*3/uL 130-400 Automated blood platelet mean volume measurement 11.0 [foz_us] 7.4-10.4 Automated blood neutrophils/100 leukocytes 86 % 42-75 Automated blood lymphocytes/100 leukocytes 8 % 12-44 Blood monocytes/100 leukocytes 6 % 0-12 Automated blood eosinophils/100 leukocytes 0 % 0-10 Automated blood basophils/100 leukocytes 0 % 0-10 Blood neutrophils automated count (number/volume) 11.0 10*3 1.8-7.8 Blood lymphocytes automated count (number/volume) 1.0 10*3 1.0-4.0 Blood monocytes automated count (number/volume) 0. 7 10*3 0.0-1.0 Automated eosinophil count 0.1 10*3/uL 0 .0-0.3 Automated blood basophil count (count/volume) 0.0 10*3/uL 0.0-0.1 Fibrin D-dimer FEU measurement in platel et poor plasma (mass/volume) - 01/08/20 01:30 Fibrin D-dimer FEU measurement in platelet poor plasma (mass/volume) 2.48 ug/mL 0.00-0.49 Blood lactic acid measurement (moles/vol ume) - 01/08/20 01:30 Blood lactic acid measurement (moles/volume) 1.51 mmol/L 0.50-2.00 Comprehensive metabolic panel - 01/08/20 01:30 Serum or plasma sodium measurement (moles/volume) 129 mmol/L 135-145 Serum or plasma potassium measurement (moles/volume) 3.5 mmol/L 3.6-5.0 Serum or plasma chloride measurement (moles/volume) 98 mmol/L 98-107 Carbon dioxide 15 mmol/L 21-32 Serum or plasma anion gap determination (moles/volume) 16 mmol/L 5-14 Serum or plasma urea nitrogen measurement (mass/volume ) 74 mg/dL 7-18 Serum or plasma creatinine measurement (mass/volume) 4.83 mg/dL 0.60-1.30 Serum or plasma urea nitrogen/creatinine mass ratio 15 NRG Serum or plasma creatinine measurement w ith calculation of estimated glomerular filtration rate 9 NRG Serum or plasma glucose measurement (mass/volume) 186 mg/dL 70-105 Serum or plasma calcium measurement (mass/volume) 8.0 mg/dL 8.5-10.1 Serum or plasma total bilirubin measurement (mass/volu me) 0.3 mg/dL 0.1-1.0 Serum or plasma alkaline phosphatase lorenzo surement (enzymatic activity/volume) 82 U/L 40-136 Serum or plasma aspartate aminotransfera se measurement (enzymatic activity/volume) 67 U/L 5-34 Serum or plasma alanine aminotransferase measurement (enzymatic activity/volume) 75 U/L 0-55 Serum or plasma protein measurement (mass/volume) 6.5 g/dL 6.4-8.2 Serum or plasma albumin measurement (mass/volume) 3.4 g/dL 3.2-4.5 CALCIUM CORRECTED 8.5 mg/dL 8.5-10.1 Magnesium - 01/08/20 01:30 Magnesium 2.2 mg/dL 1.6-2.4 Serum or plasma C reactive protein measu rement (mass/volume) - 01/08/20 01:30 Serum or plasma C reactive protein measurement (mass/v olume) > mg/dL 0.00-0.50 Serum or plasma ethanol measurement (mas s/volume) - 01/08/20 01:30 Serum or plasma ethanol measurement (mass/volume) < mg/dL <10 PT panel in platelet poor plasma by coag ulation assay - 01/08/20 01:30 Prothrombin time (PT) in platelet poor plasma by coagu lation assay 15.2 s 12.2-14.7 INR in platelet poor plasma or blood by coagulation as say 1.2 0.8-1.4 Activated partial thromboplastin time (a PTT) in platelet poor plasma bycoagulation assay - 01/08/20 01:30 Activated partial thromboplastin time (a PTT) in platelet poor plasma bycoagulation assay 46 s 24-35 Serum or plasma creatine kinase measurem ent (enzymatic activity/volume) - 01/08/20 01:30 Serum or plasma creatine kinase measurem ent (enzymatic activity/volume) 2355 U/L 29-168 Bacterial blood culture - 01/08/20 01:30 Bacterial blood culture NG NRG Bacterial blood culture - 01/08/20 02:17 Bacterial blood culture NG NRG Encounters ACCT No. Visit Date/Time Discharge Status Pt. Type Provider Facility Loc./Unit Complaint [id number] 09/13/2014 14:47:00 ACT Unknown [id number] 02/03/2015 04:27:10 ACT Document Registration [id number] 01/08/2020 01:15:00 04:55:00 DIS Outpatient CHRISSY GONZALES, SANTHOSH Castellano [facility] ER SEIZURE [id number] 11/28/2019 13:35:00 13:53:00 DIS Inpatient ANGELIQUE GONZALES, JEANIE Boone [facility] ICU ARF, UTI, ABD P AIN [id number] 10/27/2019 21:42:00 03:00:00 DIS Emergency INDRA GONZALES, MICHAEL Valdovinos [facility] ER WEAKNESS [id number] 10/09/2019 14:09:00 17:15:00 DIS Emergency NEERAJ VILLA APRN [facility] ER SEIZURE [id number] 09/14/2019 10:38:00 14:45:00 DIS Inpatient VALDOVINOS DO, RAJAN V [facility] ICU SEIZURE; [id number] 08/26/2019 07:23:00 13:46:00 DIS Inpatient JOANN GONZALES, MATTHEW [place] [facility] 4TH ALTERED MENTAL STATUS;A CUTE ON CHRONIC RESP. FAIL- [id number] 08/12/2019 09:48:00 13:00:00 DIS Inpatient KWAKU GAONA MD [facility] 4TH SEIZURE,ACUTE RENAL MARTHA LURE, TROPONIN [id number] 07/07/2019 09:23:00 16:40:00 DIS Inpatient VALDOVINOS DO, RAJAN V [facility] 4TH CHEST PAIN;DEHYDRATION;DIARRHEA,ACUTE RENAL INSUF. [id number] 07/02/2019 14:23:00 15:35:00 DIS Inpatient VALDOVINOS DO, RAJAN V [facility] 4TH AMS, RESPIRATORY FAILUR E, UTI [id number] 05/04/2019 08:39:00 12:59:00 DIS Emergency QUIN JONES MD [facility] ER CHEST PAIN [id number] 09/10/2018 20:19:00 21:49:00 DIS Emergency NEERAJ VILLA APRN [facility] ER SEIZURE [id number] 08/27/2018 14:28:00 23:59:59 CLS Preadmit Paolo PERKINS MD [facility] SLEEP LAUREN [id number] 08/20/2018 10:18:00 23:59:59 CLS Outpatient Paolo PERKINS MD [facility] CATH MODERATE TO SEVERE MITR AL REGURGITATION [id number] 08/03/2018 06:30:00 23:59:59 CLS Outpatient Paolo PERKINS MD [facility] CATH SEVERE MITRAL REGURGITA TION BY PRIOR ECHO [id number] 07/24/2018 13:33:00 23:59:59 CLS Outpatient Paolo PERKINS MD [facility] CARD I34.0 MITRAL REGURGITAT ION [id number] 07/17/2018 07:52:00 23:59:59 CLS Outpatient Paolo PERKINS MD [facility] LAB N18.9 [id number] 02/20/2018 22:00:00 018 18:50:00 DIS Inpatient GAVI DEGROOT DO [facility] 4TH ELEVATED TROPONIN,ELEVA BRINA D- DIMER,SOA [id number] 02/03/2018 22:20:00 018 01:26:00 DIS Emergency MICHAEL BURRELL MD [facility] ER CP/SEIZURE [id number] 06/18/2017 18:03:00 017 21:14:00 DIS Emergency STAR ORTIZ [facility] ER LT LEG SORE/BRUISING [id number] 03/06/2017 09:45:00 017 11:46:00 DIS Emergency QUIN JONES MD [facility] ER ABD PAIN [id number] 11/23/2016 14:15:00 017 16:00:00 DIS Emergency QUIN JONES MD [facility] ER SOA/COUGH/VOMIT ING [id number] 08/05/2016 20:48:00 016 22:20:00 DIS Emergency HOLA BRIGHT DO [facility] ER R LEG WOUND/PAINFUL URI NATION/LOWER BACK PAIN [id number] 01/27/2016 20:37:00 016 02:05:00 DIS Emergency KAILA HOLA LANGE a [facility] ER ABD PAIN,N,V,D [id number] 01/27/2016 01:55:00 016 05:47:00 DIS Emergency SANTHOSH LOWE MD [facility] ER L FLANK PAIN [id number] 02/02/2015 15:37:00 015 17:07:00 DIS Emergency STAR ORTIZ [facility] ER PAIN [id number] 01/19/2015 01:46:00 04:46:00 DIS Emergency CHRISSY GONZALES, SANTHOSH Castellano [facility] ER MERSA FLARING U P [id number] 11/27/2014 20:30:00 015 22:29:00 DIS Emergency STAR ORTIZ [facility] ER BACK PAIN [id number] 06/07/2014 16:31:00 014 14:12:00 DIS Inpatient GAVI DEGROOT DO [facility] ICU INTRACTABLE L HIP PAIN, UNABLE TO CARE FOR SELF [id number] 06/05/2014 13:39:00 014 16:45:00 DIS Emergency STAR ORTIZ [facility] ER FALL NECK PAIN AND VALDEMAR K PAIN [id number] 05/23/2014 20:00:00 014 11:35:00 DIS Inpatient MATTHEW DAVID MD [facility] ICU CHEST PAIN,COPD EXACERBATION,ELEVATED D-DIMER [id number] 04/09/2014 13:14:00 014 16:26:00 DIS Emergency NEERAJ VILLA APRN [facility] ER ABD PAIN [id number] 04/06/2014 10:52:00 014 11:45:00 DIS Inpatient GAVI DEGROOT DO [facility] 4TH RESPIRATORY DISTRESS,HYPOXIA,PNEUMONIA,CHEST PAIN [id number] 03/18/2014 16:36:00 014 18:25:00 DIS Emergency NEERAJ VILLA VACUUM DRIER TENDER [facility] ER SOA [id number] 02/04/2014 19:05:00 014 23:17:00 DIS Emergency HOLA BRIGHT DO Alec tamez [facility] ER CHEST PAIN [id number] 11/14/2013 14:21:00 014 18:24:00 DIS Emergency NEERAJ VILLA VACUUM DRIER TENDER [facility] ER LOWER BACK PAIN [id number] 09/28/2013 23:45:00 013 02:02:00 DIS Emergency CHRISSY GONZALES, SANTHOSH Castellano [facility] ER CHEST PAIN [id number] 09/15/2013 12:59:00 14:32:00 DIS Emergency ROBERT GONZALES, QUIN Villavicencio [facility] ER COUGH [id number] 09/13/2013 15:15:00 08:46:00 DIS Inpatient ABELARDO AMANDA MD [facility] ICU CHEST PAIN, ELEVATED TR OPONIA [id number] 07/29/2013 14:25:00 14:49:00 DIS Outpatient BRI VILLASEÑOR [facility] WOUNDCARE LEG ABSCESS [id number] 06/20/2013 00:03:00 16:42:00 DIS Inpatient GAVI DEGROOT DO [facility] SURGICAL MULTIPLE ABSCESSES [id number] 06/04/2013 12:49:00 23:59:59 CLS Outpatient ABELARDO AMANDA MD [facility] RAD CHF [id number] 06/04/2013 10:53:00 23:59:59 CLS Outpatient ABELARDO AMANDA MD [facility] CARD CHF [id number] 05/30/2013 13:54:00 15:27:00 DIS Emergency SANTHOSH LOWE MD [facility] ER CHEST PAIN [id number] 05/10/2013 01:14:00 07/30/2 013 14:24:00 DIS Inpatient JONATHAN GONZAELS, NGOC [facility] ICU NSTEMI,CHEST PAIN,HYPER TENSIVE URGENCY [id number] 04/29/2013 14:28:00 013 23:59:59 CLS Outpatient [id number] 05/15/2018 00:10:00 Document Registration [id number] 01/27/2016 05:53:00 Document Registration [id number] 12/01/2014 13:05:00 Document Registration [id number] 12/17/2012 04:30:00 Document Registration [id number] 08/03/2012 03:50:00 Document Registration [id number] 07/23/2012 17:10:00 Document Registration [id number] 05/25/2012 03:15:00 Document Registration [id number] 05/09/2012 19:20:00 Document Registration [id number] 03/28/2012 06:00:00 Document Registration [id number] 10/10/2011 13:00:00 Document Registration [id number] 07/16/2011 01:55:00 Document Registration [id number] 07/02/2011 06:44:00 Document Registration [id number] 04/12/2011 19:39:00 Document Registration [id number] 03/22/2011 02:40:00 Document Registration [id number] 03/19/2011 17:35:00 Document Registration [id number] 03/03/2011 20:58:00 Document Registration [id number] 01/21/2011 21:56:00 Document Registration [id number] 12/28/2010 15:45:00 Document Registration [id number] 11/04/2010 20:43:00 Document Registration [id number] 02/05/2010 04:25:00 Document Registration [id number] 04/29/2017 09:08:00 Document Registration [id number] 09/18/2016 08:45:00 Document Registration [id number] 01/31/2015 15:03:00 01/31/2015 23:59: 59 CLS Outpatient KRANTHI PRECIADO MD [id number] 11/28/2014 09:37:00 11/28/2014 23:59: 59 CLS Outpatient TRACEE LANGE APRN [id number] 08/05/2014 14:32:00 08/05/2014 23:59: 59 CLS Outpatient TRACEE LANGE APRN [id number] 07/04/2014 12:54:00 07/04/2014 23:59: 59 CLS Outpatient GAVI DEGROOT DO [id number] 05/02/2014 15:01:00 05/02/2014 23:59: 59 CLS Outpatient GAVI DEGROOT DO [id number] 12/10/2013 14:53:00 12/10/2013 23:59: 59 CLS Outpatient TRACEE LANGE APRN [id number] 09/29/2013 15:37:00 09/29/2013 23:59: 59 CLS Outpatient TRACEE LANGE APRN [id number] 09/18/2013 12:00:00 09/18/2013 23:59: 59 CLS Outpatient TRACEE LANGE APRN [id number] 07/15/2013 14:04:00 07/15/2013 23:59: 59 CLS Outpatient KRANTHI PRECIADO MD [id number] 05/31/2013 09:17:00 05/31/2013 23:59: 59 CLS Outpatient KRANTHI PRECIADO MD [id number] 12/09/2012 17:16:00 12/09/2012 23:59: 59 CLS Outpatient TRACEE LANGE APRN [id number] 10/28/2012 12:04:00 10/28/2012 23:59: 59 CLS Outpatient TRACEE LANGE APRN [id number] 10/19/2012 16:04:00 10/19/2012 23:59: 59 CLS Outpatient [id number] 09/16/2012 15:22:00 09/16/2012 23:59: 59 CLS Outpatient [id number] 08/14/2012 10:30:00 08/14/2012 23:59:5 9 CLS Outpatient KRANTHI PRECIADO MD [id number] 05/21/2013 10:29:00 Document Registration [id number] 03/02/2013 15:46:00 Document Registration [id number] 08/18/2019 15:40:00 08/18/2019 23:59:5 9 CLS Outpatient TRACEE LANGE APRN [facility] [id number] 06/11/2019 13:40:00 Document Registration [id number] 05/05/2019 10:40:00 Document Registration [id number] 11/30/2018 15:40:00 Document Registration [id number] 09/04/2018 11:00:00 Document Registration
[2020-02-05 22:16] LABS: BACTERIA,URINE LARGE /HPF; RBC,URINE RARE /HPF; WBC,URINE 50-100 /HPF
[2020-02-05 22:17] LABS: SQUAMOUS EPITHELIAL CELL,UR 0-2 /HPF
[2020-02-05 22:19] LABS: AMPHETAMINE SCREEN, URINE POSITIVE (NEGATIVE); BARBITURATE SCREEN URINE POSITIVE (NEGATIVE); BENZODIAZEPINES SCREEN URINE NEGATIVE (NEGATIVE); CANNABINOID SCREEN, URINE NEGATIVE (NEGATIVE); COCAINE SCREEN URINE NEGATIVE (NEGATIVE); METHADONE STAT NEGATIVE (NEGATIVE); METHAMPHETAMINE SCREEN URINE S POSITIVE (NEGATIVE); OPIATE SCREEN URINE NEGATIVE (NEGATIVE); OXYCODONE STAT NEGATIVE (NEGATIVE); PROPOXYPHENE STAT NEGATIVE (NEGATIVE); TRICYCLIC ANTIDEPRESSANTS SCRE NEGATIVE (NEGATIVE)
[2020-02-05 22:24] LABS: ALBUMIN 3.6 GM/DL (3.2-4.5); BILIRUBIN,TOTAL 0.2 MG/DL (0.1-1.0); CALCIUM 8.3 MG/DL (8.5-10.1); CREATININE SERUM 1.83 MG/DL (0.60-1.30); POTASSIUM 4.8 MMOL/L (3.6-5.0)
[2020-02-05] MEDS ORDERED: NS IV 1000 ML 1,000 ML IV SCH (22:24)
[2020-02-05 22:30] LABS: ABG BASE EXCESS -6.9 MMOL/L (-2.5-2.5); ABG OXYGEN SATURATION 98 % (94-100); ABG PCO2 41 MMHG (35-45); ABG PO2 145 MMHG (79-93); ABG TCO2 20.3 MMOL/L (21.0-31.0)
[2020-02-05 22:31] LABS: ABG PH 7.28 (7.37-7.43); ALLENS TEST POSITIVE; INSPIRED O2 RA; VENTILATOR NO
[2020-02-05 22:32] LABS: PATIENT TEMP 36
[2020-02-05] MEDS ORDERED: NS (IVPB) 100 ML ONE (22:47)
[2020-02-05] MEDS ORDERED: LEVETIRACETAM 500 MG/5 ML (KEPPRA) VIAL IV ONE (22:47)
[2020-02-05] MEDS ORDERED: WATER (STERILE) FOR INJECTION 10 ML ONE (22:51)
[2020-02-05] MEDS ORDERED: cefTRIAXone 1,000 MG IV (ROCEPHIN) VIAL ONE (22:51)
--- OUTSIDE RECORDS SUMMARY | 2020-02-05 23:09 | XMS REPORT | Encounter Summary ---
Author Author [facility] Organization [facility] Address Unknown Phone Unavailable Care Team Providers Care Menhaden Vessel Pilot Name Role Phone PauloSander Unavailable Anita Lopez MD Unavailable Joshua Lynch MD Unavailable Sherice Laurent DO PCP Armin Ventura MD Unavailable Flory Kim RN Unavailable Unavailable Zaynab Zhang MD Unavailable Unavailable Encounter Details Care Team Description Date Type Department 09/16/2019 [facility] [address] [address] Social History Date Tobacco [...] HEAD EXTERNAL IMAGING Routine 09/16/2019 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 documented in this encounter Visit Diagnoses Not on filedocumented in this encounter Additional Health Concerns Resolved Time Infection Noted Time MRSA 06/14/2014 9:09 AM CDT documented as of this encounter
--- OUTSIDE RECORDS SUMMARY | 2020-02-05 23:09 | XMS REPORT | Clinical Summary ---
Author Author [facility] Organization [facility] Address Unknown Phone Unavailable Care Team Providers Care License And Permit Specialist Name Role Phone PauloAngelaSandervika LANGE Unavailable Anita Lopez MD Unavailable Joshua Lynch MD Unavailable Sherice Laurent DO PCP Armin Ventura MD Unavailable Flory Kim RN Unavailable Unavailable Zaynab Zhang MD Unavailable Unavailable Source Comments Some departments are not documenting in the electronic medical record. 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 Blood Pressure 72 11/11/2014 1:07 PM HOG ROOM SUPERVISOR Pulse 36.5 C (97.7 F) 11/11/2014 1:07 PM HOG ROOM SUPERVISOR Temperature 16 11/11/2014 1:07 PM HOG ROOM SUPERVISOR Respiratory Rate 94% 09/21/2014 7:45 AM HOG ROOM SUPERVISOR Oxygen Saturation - - Inhaled Oxygen Concentration 82.1 kg (181 lb) 11/11/2014 1:07 PM HOG ROOM SUPERVISOR Weight 160 cm (5' 3") 11/11/2014 1:07 PM HOG ROOM SUPERVISOR Height 32.06 11/11/2014 1:07 PM HOG ROOM SUPERVISOR Body Mass Index Plan of Treatment Health [...] 06/14/2014 9:09 AM CDT Advance Directives Patient Client Relationship Consultant Explanation Type Date Recorded Advance 06/11/2014 9:42 [...]
--- OUTSIDE RECORDS SUMMARY | 2020-02-05 23:09 | XMS REPORT | Encounter Summary ---
Author Author [facility] Organization [facility] Address Unknown Phone Unavailable Care Team Providers Care Correctional Corporal Name Role Phone PauloSander Unavailable Anita Lopez MD Unavailable Joshua Lynch MD Unavailable Sherice Laurent DO PCP Armin Ventura MD Unavailable Flory Kim RN Unavailable Unavailable Zaynab Zhang MD Unavailable Unavailable Encounter Details Care Team Description Date Type Department 08/12/2019 [facility] [address] [address] Social History Date Tobacco Use [...]
--- OUTSIDE RECORDS SUMMARY | 2020-02-05 23:09 | XMS REPORT | Encounter Summary ---
Author Author [facility] Organization [facility] Address Unknown Phone Unavailable Care Team Providers Care Salesperson Books Name Role Phone PauloSander Unavailable Anita Lopez MD Unavailable Joshua Lynch MD Unavailable Sherice Laurent DO PCP Armin Ventura MD Unavailable Flory Kim RN Unavailable Unavailable Zaynab Zhang MD Unavailable Unavailable Encounter Details Care Team Description Date Type Department 08/12/2019 [facility] [address] [address] Social History Date Tobacco Use [...]
--- OUTSIDE RECORDS SUMMARY | 2020-02-05 23:09 | XMS REPORT | Encounter Summary ---
Author Author [facility] Organization [facility] Address Unknown Phone Unavailable Care Team Providers Care Alteration Workroom Supervisor Name Role Phone PauloSander Unavailable Anita Lopez MD Unavailable Joshua Lynch MD Unavailable Sherice Laurent DO PCP Armin Ventura MD Unavailable Flory Kim RN Unavailable Unavailable Zaynab Zhang MD Unavailable Unavailable Encounter Details Care Team Description Date Type Department 08/15/2019 [facility] [address] [address] Social History Date Tobacco Use [...]
--- OUTSIDE RECORDS SUMMARY | 2020-02-05 23:09 | XMS REPORT | Encounter Summary ---
Author Author [facility] Organization [facility] Address Unknown Phone Unavailable Care Team Providers Care Cashier Office Name Role Phone PauloSander Unavailable Anita Lopez MD Unavailable Joshua Lynch MD Unavailable Sherice Laurent DO PCP Armin Ventura MD Unavailable Flory Kim RN Unavailable Unavailable Zaynab Zhang MD Unavailable Unavailable Encounter Details Care Team Description Date Type Department 08/15/2019 [facility] [address] [address] Social History Date Tobacco Use [...]
--- OUTSIDE RECORDS SUMMARY | 2020-02-05 23:27 | XMS REPORT | Continuity of Care Document ---
Demographics Preferred Language Unknown Marital Status Unknown Hoahaoism Affiliation Unknown Race Unknown Ethnic Group Unknown Author Organization Unknown Address Unknown Phone Unavailable Allergies Active Description Code Type Severity Reaction Onset Reported/Identified Relationship to Patient Clinical Status Yes nitrous oxide [id number] [place] g Allergy Unknown N/A 06/08/[address] [id number] Dr ug Allergy Unknown N/A 05/25/2014 Medications [...] And Abscess Of Unspecified Sites 01/25/2009 ANISA TOUR MANAGER, TRACEE T 68 2.9 Cellulitis And Abscess [...] CHRONIC OBSTRUCTIVE PULMONARY DISEASE 04/10/2011 DEGROOT DO, GAIV K 462 Sore Throat 04/10/2011 DEGROOT DO, [...] QUENTIN TRAL HERNIA NOS 07/17/2011 Ot 571.8 ANIMAL HUMANE AGENT SUPERVISOR MALIKA LIVER DIS NEC 07/17/2011 Ot 577.0 [...] 530.81 ESO PHAGEAL REFLUX 10/11/2011 Ot 585.9 ANIMAL HUMANE AGENT SUPERVISOR MALIKA KIDNEY DISEASE, UNSPECIFIED 10/11/2011 Ot 596.51 [...] APRN 368.10 VISUAL DISTURBANCE UNSPECIFIED 07/10/2012 GAVI EDGROOT DO 368.10 VISUAL DISTURBANCE UNSPECIFIED 07/10/2012 GAVI [...] 08/04/2012 Ot 414.01 COR ONARY ATHEROSCLEROSIS OF [place] CORON 08/04/2012 Ot 496 CHR AI RWAY [...] DEGROOT DO, GAVI K 780.79 fatigue 12/09/2012 TARCEE LANGE APRN 780.79 fatigue 12/09/2012 TRACEE LANGE APRN 780.79 fatigue 12/09/2012 KRANTHI PRECIADO MD 780.7 9 fatigue 12/20/2012 Ot 272.4 HYPE RLIPIDEMIA NEC/NOS 12/20/2012 Ot 276.7 HYPE RPOTASSEMIA 12/20/2012 Ot 305.70 AMP HETAMINE ABUSE-UNSPEC 12/20/2012 Ot 345.90 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 12/20/2012 Ot 401.9 HYPE RTENSION NOS 12/20/2012 Ot 414.01 COR ONARY ATHEROSCLEROSIS OF [place] CORON 12/20/2012 Ot 486 PNEUMO ALEJA, ORGANISM [...] 305. 1 TOBACCO USE DISORDER 05/11/2013 NGOC CASITLLO MD Ot 345. 90 EPILEPSY UNSPEC W/O MENTION INTRACTABLE 05/11/2013 NGOC CASTILLO MD Ot 401. 9 HYPERTENSION NOS 05/11/2013 NGOC CASTILLO MD Ot 414. 01 CORONARY ATHEROSCLEROSIS OF [place] CORON 05/11/2013 NGOC CASTILLO MD Ot 425. [...] DEGROOT DO Ot 414.01 CORONARY ATHEROSCLEROSIS OF [place] CORON 06/24/2013 GAVI DEGROOT DO Ot 425.4 [...] Ot 785.0 TACHYCARDIA NOS 07/29/2013 BRI VILLASEÑOR BACKPACKERS MANAGER Ot 682.6 CELLULITIS OF LEG 09/14/2013 VASILIY [...] MD Ot 414. 01 CORONARY ATHEROSCLEROSIS OF [place] CORON 09/14/2013 ABELARDO AMANDA MD Ot 425. [...] SWELLING MASS OR LUMP IN CHEST 03/18/2014 NEEARJ VILLA APRN Ot 491.20 OBSTR CHRONIC BRONCHITIS, [...] IMPLANTABLE CARDIAC DEFIBRILLATOR I 04/09/2014 NEERAJ VILLA TOUR MANAGER Ot 486 PNEUMONIA, ORGANISM NOS 04/09/2014 NEERAJ VILLA TOUR MANAGER Ot 511 .9 PLEURAL EFFUSION NOS 05/25/2014 [...] DO, HOLA K Ot E86.0 DEHYDRATION 01/28/2016 KIALA DO, HOLA K Ot I12.9 HYPERTENSIVE CHRONIC [...] KAILA DO, HOLA K Ot Z79.899 OTHER BUFFING MACHINE TENDER (CURRENT) DRUG THERAPY 08/05/2016 KAILA , HOLA [...] MD Ot I25.10 ATHSCL HEART DISEASE OF [place] CORONARY 11/23/2016 QUIN JONES MD Ot J44.9 CHRONIC OBSTRUCTIVE PULMONARY DISEASE, U 11/23/2016 QUIN JONES MD Ot R05 COUGH 11/23/2016 QUIN JONES MD Ot Z79.899 OTHER BUFFING MACHINE TENDER (CURRENT) DRUG THERAPY 11/26/2016 QUIN JONES MD Ot I25.10 ATHSCL HEART DISEASE OF [place] CORONARY 11/26/2016 QUIN JONES MD Ot J44.9 CHRONIC OBSTRUCTIVE PULMONARY DISEASE, U 11/26/2016 QUIN JONES MD Ot R05 COUGH 11/26/2016 QUIN JONES MD, Ot Z79.899 OTHER BUFFING MACHINE TENDER (CURRENT) DRUG THERAPY 12/26/2016 KAILA DO, HOLA [...] KAILA DO, HOLA K Ot Z79.899 OTHER BUFFING MACHINE TENDER (CURRENT) DRUG THERAPY 12/26/2016 KAILA DO, HOLA [...] MD Ot I25.10 ATHSCL HEART DISEASE OF [place] CORONARY 03/06/2017 QUIN JONES MD, Ot J44.9 CHRONIC OBSTRUCTIVE PULMONARY DISEASE, U 03/06/2017 QUIN JONES MD Ot K59.00 CONSTIPATION, UNSPECIFIED 03/06/2017 QUIN JONES MD Ot R10.30 LOWER ABDOMINAL PAIN, UNSPECIFIED 03/06/2017 QUIN JONES MD Ot Z79.899 OTHER BUFFING MACHINE TENDER (CURRENT) DRUG THERAPY 03/06/2017 ABELARDO AMANDA MD Ot 397. 0 TRICUSPID VALVE DISEASE 03/06/2017 ABELARDO AMANDA MD Ot 424. 0 MITRAL VALVE DISORDER 03/06/2017 ABELARDO AMANDA MD Ot 428. 0 CONGESTIVE HEART FAILURE NOS 03/06/2017 ABELARDO AMANDA MD Ot 428. 0 CONGESTIVE HEART FAILURE NOS 03/07/2017 QUIN JONES MD Ot I16.0 HYPERTENSIVE URGENCY 03/07/2017 QUIN JONES MD, Ot I25.10 ATHSCL HEART DISEASE OF [place] CORONARY 03/07/2017 QUIN JONES MD, Ot J44.9 CHRONIC OBSTRUCTIVE PULMONARY DISEASE, U 03/07/2017 QUIN JONES MD, Ot K59.00 CONSTIPATION, UNSPECIFIED 03/07/2017 QUIN JONES MD Ot R10.30 LOWER ABDOMINAL PAIN, UNSPECIFIED 03/07/2017 QUIN JONES MD, Ot Z79.899 OTHER CARE HOME (CURRENT) DRUG THERAPY 06/18/2017 ABELARDO AMANDA [...] ORTIZ Ot I25.10 ATHSCL HEART DISEASE OF [place] CORONARY 06/18/2017 STAR ORTIZ Ot I25.2 OLD [...] Ot I25. 10 ATHSCL HEART DISEASE OF [place] CORONARY 02/04/2018 MICHAEL BURRELL MD Ot I25. [...] 02/04/2018 MICHAEL BURRELL MD Ot Z79. 51 CARE HOME (CURRENT) USE OF INHALED STERO 02/04/2018 MICHAEL BURRELL MD Ot Z79. 52 CARE HOME (CURRENT) USE OF SYSTEMIC STER 02/04/2018 [...] MD Ot Z88. 8 ALLERGY STATUS TO [facility] DRUG/MEDS/BIOL SUB 02/04/2018 MICHAEL BURRELL MD Ot [...] Ot I25. 10 ATHSCL HEART DISEASE OF [place] CORONARY 02/05/2018 MICHAEL BURRELL MD Ot I25. [...] 02/05/2018 MICHAEL BURRELL MD Ot Z79. 51 BUFFING MACHINE TENDER (CURRENT) USE OF INHALED STERO 02/05/2018 MICHAEL BURRELL MD Ot Z79. 52 BUFFING MACHINE TENDER (CURRENT) USE OF SYSTEMIC STER 02/05/2018 IMCHAEL BURRELL MD Ot Z82. 49 FAMILY HX [...] MD Ot Z88. 8 ALLERGY STATUS TO [facility] DRUG/MEDS/BIOL SUB 02/05/2018 MICHAEL BURRELL MD [...] DO Ot I25.10 ATHSCL HEART DISEASE OF [place] CORONARY 02/24/2018 GAVI DEGROOT DO Ot I27.20 PULMONARY HYPERTENSION, UNSPECIFIED 02/24/2018 GAVI DEGROOT DO Ot I34.0 NONRHEUMATIC MITRAL (VALVE) INSUFFICIENC 02/24/2018 GAVI DEGROOT DO Ot I42.0 DILATED CARDIOMYOPATHY 02/24/2018 GAVI DEGROOT DO Ot I50.21 ACUTE SYSTOLIC (CONGESTIVE) HEART FAILUR 02/24/2018 GAVI DEGROOT DO Ot N18.9 CHRONIC KIDNEY DISEASE, UNSPECIFIED 02/24/2018 GAVI DEGROOT DO Ot Z79.89 9 OTHER BUFFING MACHINE TENDER (CURRENT) DRUG THERAPY 02/24/2018 GAVI DEGROOT DO Ot G40.90 9 EPILEPSY, UNSP, NOT INTRACTABLE, WITHOUT 02/24/2018 AGUSTÍN DEGROOT DOA Alec Ot G89.29 OTHER CHRONIC PAIN 02/24/2018 GAVI DEGROOT DO Ot I12.9 HYPERTENSIVE CHRONIC KIDNEY DISEASE W ST 02/24/2018 GAVI DEGROOT DO Ot I25.10 ATHSCL HEART DISEASE OF [place] CORONARY 02/24/2018 GAVI DEGROOT DO Ot I27.20 PULMONARY HYPERTENSION, UNSPECIFIED 02/24/2018 GAVI DEGROOT DO Ot I34.0 NONRHEUMATIC MITRAL (VALVE) INSUFFICIENC 02/24/2018 GAVI DEGROOT DO Ot I42.0 DILATED CARDIOMYOPATHY 02/24/2018 GAVI DEGROOT DO Ot I50.21 ACUTE SYSTOLIC (CONGESTIVE) HEART FAILUR 02/24/2018 GAVI DEGROOT DO Ot N18.9 CHRONIC KIDNEY DISEASE, UNSPECIFIED 02/24/2018 GAVI DEGROOT DO Ot Z79.89 9 OTHER CARE HOME (CURRENT) DRUG THERAPY 05/15/2018 Ot A41.9 SEPS [...] Ot I25.10 ATH SCL HEART DISEASE OF [place] CORONARY 05/15/2018 Ot I42.9 CARD IOMYOPATHY, UNSPECIFIED 05/15/2018 Ot 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 05/15/2018 Ot J43.9 EMPH YSEMA, UNSPECIFIED 05/15/2018 Ot K56.600 PA RTIAL INTESTINAL OBSTRUCTION, UNSPECIF 05/15/2018 Ot L03.115 CE LLULITIS OF RIGHT LOWER LIMB 05/15/2018 Ot L03.116 CE LLULITIS OF LEFT LOWER LIMB 05/15/2018 Ot N17.9 ACUT E KIDNEY FAILURE, UNSPECIFIED 05/15/2018 Ot N18.9 ANIMAL HUMANE AGENT SUPERVISOR MALIKA KIDNEY DISEASE, UNSPECIFIED 05/15/2018 Ot N39.0 [...] SMO 09/10/2018 NEERAJ VILLA APRN Ot Z79.51 CARE HOME (CURRENT) USE OF INHALED STERO 09/10/2018 NEERAJ VILAL APRN Ot Z79.52 CARE HOME (CURRENT) USE OF SYSTEMIC STER 09/10/2018 NEERAJ [...] APRN Ot Z88 .8 ALLERGY STATUS TO [facility] DRUG/MEDS/BIOL SUB 09/10/2018 NEERAJ VILLA APRN Ot [...] SMO 09/14/2018 NEERAJ VILLA APRN Ot Z79.51 CARE HOME (CURRENT) USE OF INHALED STERO 09/14/2018 NEERAJ VILLA APRN Ot Z79.52 CARE HOME (CURRENT) USE OF SYSTEMIC STER 09/14/2018 NEERAJ [...] SMO 09/29/2018 NEERAJ VILLA APRN Ot Z79.51 BUFFING MACHINE TENDER (CURRENT) USE OF INHALED STERO 09/29/2018 NEERAJ VILLA APRN Ot Z79.52 BUFFING MACHINE TENDER (CURRENT) USE OF SYSTEMIC STER 09/29/2018 NEERAJ [...] OBJE 05/04/2019 QUIN JONES MD Ot Z79.51 CARE HOME (CURRENT) USE OF INHALED STERO 05/04/2019 QUIN [...] JONES MD, Ot Z88.8 ALLERGY STATUS TO [facility] DRUG/MEDS/BIOL SUB 05/04/2019 QUIN JONES MD, Ot [...] OBJE 05/10/2019 QUIN JONES MD, Ot Z79.51 BUFFING MACHINE TENDER (CURRENT) USE OF INHALED STERO 05/10/2019 QUIN [...] JONES MD Ot Z88.8 ALLERGY STATUS TO [facility] DRUG/MEDS/BIOL SUB 05/10/2019 QUIN JONES MD Ot [...] RAJAN Ot I25.10 ATHSCL HEART DISEASE OF [place] CORONARY 07/10/2019 RAJAN VALDOVINOS DO Ot I38 [...] MD Ot Z91.1 9 PATIENT'S NONCOMPLIANCE W [facility] MEDICAL TR 08/27/2019 MATTHEW DAVID MD Ot [...] MD, Ot I25.10 ATHSCL HEART DISEASE OF [place] CORONARY 08/27/2019 MATTHEW DAVID MD, Ot I25 [...] 08/27/2019 MATTHEW DAVID MD, Ot Z79.899 OTHER CARE HOME (CURRENT) DRUG THERAPY 08/27/2019 MATTHEW DAVID MD, Ot Z87.820 PERSONAL HISTORY OF TRAUMATIC BRAIN INJU 08/27/2019 MATTHEW DAVID MD, Ot Z91.19 PATIENT'S NONCOMPLIANCE W OT MEDICAL TR 08/27/2019 MATTHEW DAVID MD, Ot Z99.81 DEPENDENCE ON SUPPLEMENTAL OXYGEN 08/28/2019 MATTHEW DAVID MD, Ot B19.20 UNSPECIFIED VIRAL 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 08/28/2019 MATHTEW DAVID MD, Ot D63 .8 ANEMIA IN [...] MD Ot I25.10 ATHSCL HEART DISEASE OF [place] CORONARY 08/28/2019 MATTHEW DAVID MD Ot I25 [...] 08/28/2019 MATTHEW DAVID MD, Ot Z79.899 OTHER BUFFING MACHINE TENDER (CURRENT) DRUG THERAPY 08/28/2019 MATTHEW DAVID MD, Ot Z87.820 PERSONAL HISTORY OF TRAUMATIC BRAIN INJU 08/28/2019 MATTHEW DAVID MD, Ot Z91.19 PATIENT'S NONCOMPLIANCE W [facility] MEDICAL TR 08/28/2019 MATTHEW DAVID MD, Ot Z99.81 DEPENDENCE ON SUPPLEMENTAL OXYGEN 08/29/2019 MATTHEW DAVID MD, Ot B19.20 UNSPECIFIED VIRAL 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 08/29/2019 MATTHEW DAVID MD, Ot D63 .8 ANEMIA IN OTHER CHRONIC DISEASES CLASSIF 08/29/2019 MATTHEW DAVID MD, Ot E11.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 08/29/2019 MATTHEW DAVID MD, Ot E87 .2 ACIDOSIS 08/29/2019 AMTTHEW DAVID MD, Ot E87 .5 HYPERKALEMIA 08/29/2019 [...] MD, Ot I25.10 ATHSCL HEART DISEASE OF [place] CORONARY 08/29/2019 MATTHEW DAVID MD, Ot I25 .2 OLD MYOCARDIAL INFARCTION 08/29/2019 MATTHEW DAVDI MD, Ot I34 .0 NONRHEUMATIC MITRAL (VALVE) [...] 08/29/2019 MATTHEW DAVID MD, Ot Z79.899 OTHER BUFFING MACHINE TENDER (CURRENT) DRUG THERAPY 08/29/2019 MATTHEW DAVID MD, [...] MD Ot I25.10 ATHSCL HEART DISEASE OF [place] CORONARY 08/29/2019 MATTHEW DAVID MD, Ot I25 [...] 08/29/2019 MATTHEW DAVID MD, Ot Z79.899 OTHER BUFFING MACHINE TENDER (CURRENT) DRUG THERAPY 08/29/2019 MATTHEW DAVID MD, Ot Z87.820 PERSONAL HISTORY OF TRAUMATIC BRAIN INJU 08/29/2019 MATTHEW DAVID MD, Ot Z91.19 PATIENT'S NONCOMPLIANCE W OT MEDICAL TR 08/29/2019 MATTHEW DAVID MD, Ot Z99.81 DEPENDENCE ON SUPPLEMENTAL OXYGEN 09/18/2019 RAJAN VALDOVINOS DO Ot D63.8 ANEMIA IN OTHER CHRONIC DISEASES CLASSIF 09/18/2019 RAJAN VALDOVINOS DO Ot E11.22 TYPE 2 DIABETES MELLITUS W DIABETIC ANIMAL HUMANE AGENT SUPERVISOR 09/18/2019 RJAAN VALDOVINOS DO Ot E11.51 TYPE 2 DIABETES [...] RAJAN Ot I25.10 ATHSCL HEART DISEASE OF [place] CORONARY 09/18/2019 ARUNA LANGE RAJAN Ot I25.2 [...] UNSPECIFIED 09/18/2019 ARUNA LANGE RAJAN Ot Z79.82 CARE HOME (CURRENT) USE OF ASPIRIN 09/18/2019 ARUNA LANGE [...] APRN Ot I25.10 ATHSCL HEART DISEASE OF [place] CORONARY 10/09/2019 NEERAJ VILLA APRN Ot I25 .2 OLD MYOCARDIAL INFARCTION 10/09/2019 NEERAJ VILLA APRN, Ot J44 .9 CHRONIC OBSTRUCTIVE PULMONARY DISEASE, U 10/09/2019 NEERAJ VILLA APRN Ot K21 .9 GASTRO-ESOPHAGEAL REFLUX DISEASE WITHOUT 10/09/2019 NEERAJ VILLA APRN Ot R56 .9 UNSPECIFIED CONVULSIONS 10/09/2019 NEERAJ VILLA APRN Ot Z77.22 CNTCT W AND EXPSR TO ENVIRON TOBACCO SMO 10/09/2019 NEERAJ VILLA APRN Ot Z79.82 CARE HOME (CURRENT) USE OF ASPIRIN 10/09/2019 NEERAJ VILLA [...] APRN Ot I25.10 ATHSCL HEART DISEASE OF [place] CORONARY 10/12/2019 NEERAJ VILLA APRN Ot I25 .2 OLD MYOCARDIAL INFARCTION 10/12/2019 NEERAJ VILLA APRN Ot J44 .9 CHRONIC OBSTRUCTIVE PULMONARY DISEASE, U 10/12/2019 NEERAJ VILLA APRN Ot K21 .9 GASTRO-ESOPHAGEAL REFLUX DISEASE WITHOUT 10/12/2019 NEERAJ VILLA APRN Ot R56 .9 UNSPECIFIED CONVULSIONS 10/12/2019 NEERAJ VILLA APRN Ot Z77.22 CNTCT W AND EXPSR TO ENVIRON TOBACCO SMO 10/12/2019 NEERAJ VILLA APRN Ot Z79.82 CARE HOME (CURRENT) USE OF ASPIRIN 10/12/2019 NEERAJ VILLA [...] DISORDERS OF BOTH MITRAL AND T 10/27/2019 Paloo PERKINS MD Ot I27.20 PULMONARY HYPERTENSION, UNSPECIFIED 10/27/2019 Paolo PERKINS MD Ot I42 .8 OTHER CARDIOMYOPATHIES 10/27/2019 Paolo PERKINS MD Ot N18 .9 CHRONIC KIDNEY DISEASE, UNSPECIFIED 10/27/2019 Paolo PERKINS MD, Ot 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 10 ATHSCL HEART DISEASE OF [place] CORONARY 10/28/2019 MICHAEL BURRELL MD Ot I25. [...] 10/28/2019 MICHAEL BURRELL MD, Ot Z79. 82 BUFFING MACHINE TENDER (CURRENT) USE OF ASPIRIN 10/28/2019 MICHAEL BURRELL [...] Ot I25. 10 ATHSCL HEART DISEASE OF [place] CORONARY 11/01/2019 MICHAEL BURRELL MD Ot I25. [...] 11/01/2019 MICHAEL BURRELL MD, Ot Z79. 82 CARE HOME (CURRENT) USE OF ASPIRIN 11/01/2019 MICHAEL BURRELL [...] MD Ot I25.10 ATHSCL HEART DISEASE OF [place] CORONARY 12/01/2019 JEANIE MERINO MD, Ot I25.2 [...] MD, Ot I25.10 ATHSCL HEART DISEASE OF [place] CORONARY 12/01/2019 JEANIE MERINO MD, Ot I25.2 [...] MD, Ot I25.10 ATHSCL HEART DISEASE OF [place] CORONARY 12/01/2019 JEANIE MERINO MD Ot I25.2 [...] DIABETES W DIABETIC PERIPHERAL AN 12/01/2019 JEANIE MERION MD Ot E11.65 TYPE 2 DIABETES MELLITUS [...] MD Ot I25.10 ATHSCL HEART DISEASE OF [place] CORONARY 12/01/2019 JEANIE MERINO MD Ot I25.2 [...] MD, Ot I25.10 ATHSCL HEART DISEASE OF [place] CORONARY 12/02/2019 JEANIE MERINO MD, Ot I25.2 [...] MD Ot I25.10 ATHSCL HEART DISEASE OF [place] CORONARY 12/02/2019 JEANIE MERINO MD Ot I25.2 [...] MD Ot I25.10 ATHSCL HEART DISEASE OF [place] CORONARY 12/03/2019 JEANIE MERINO MD Ot I25.2 OLD MYOCARDIAL INFARCTION 12/03/2019 EJANIE MERINO MD Ot I42.9 CARDIOMYOPATHY, UNSPECIFIED 12/03/2019 [...] MD, Ot I25.10 ATHSCL HEART DISEASE OF [place] CORONARY 12/03/2019 JEANIE MERINO MD, Ot I25.2 [...] G40.909 EPILEPSY, UNSP, NOT INTRACTABLE, WITHOUT 12/04/2019 JEAINE MERINO MD, Ot I12.9 HYPERTENSIVE CHRONIC KIDNEY DISEASE W ST 12/04/2019 JEANIE MERINO MD, Ot I25.10 ATHSCL HEART DISEASE OF [place] CORONARY 12/04/2019 JEANIE MERINO MD, Ot I25.2 [...] MD Ot I25.10 ATHSCL HEART DISEASE OF [place] CORONARY 12/04/2019 JEANIE MERINO MD Ot I25.2 [...] MD Ot I25.10 ATHSCL HEART DISEASE OF [place] CORONARY 01/11/2020 SANTHOSH LOWE MD Ot I25.2 [...] HISTORY OF TRAUMATIC BRAIN INJU 01/12/2020 MICHAEL BURRELL MD Ot D64. 9 ANEMIA, UNSPECIFIED 01/12/2020 [...] Ot I25. 10 ATHSCL HEART DISEASE OF [place] CORONARY 01/12/2020 MICHAEL BURRELL MD, Ot I25. [...] 01/12/2020 MICHAEL BURRELL MD, Ot Z79. 82 BUFFING MACHINE TENDER (CURRENT) USE OF ASPIRIN 01/12/2020 MICHAEL BURRELL [...] Mason 09/16/2012 General S Logan Kwan 10/28/2012 [id number] ROUT INE VENIPUNCTURE 12/09/2012 79751 CMP 12/09/2012 89065 PHEN OBARBITAL 12/09/2012 75547 TSH 12/09/2012 14825 CBC 12/09/2012 PODIATRY W ILDE, CURT 03/02/2013 37.22 LEFT HEART CARDIAC CATH 05/10/2013 88.53 LT H EART ANGIOCARDIOGRAM 05/10/2013 88.56 MISAEL DENEEN ARTERIOGR-2 CATH 05/10/2013 44714 ECHO 2D 05/21/2013 86.04 OTHE R SKIN SUBQ I D 06/20/2013 Physical W ound Care, Mtc 06/29/[address] A BDOMEN & PELVIS W/ & W/O CONTRAST 12/10/2013 51009 OXIMETRY 12/10/2013 42537 ROUT INE VENIPUNCTURE 08/05/2014 55490 CBC 08/05/2014 [id number] GF R CALC (RESULT ONLY) 08/05/2014 62198 CMP 08/05/2014 07880 OXIMETRY 11/28/2014 J1885 BENJAMIN DOL PER 15 MG, INJ KETOROLAC TROMETHAMINE 11/28/2014 45361 EAR LAVAGE 02/02/2015 [id number] IN SERTION OF INFUSION DEV INTO SUP VENA 05/15/2018 [id number] IN SERTION OF ENDOTRACHEAL AIRWAY INTO TR 07/02/2019 [id number] RE SPIRATORY VENTILATION, LESS THAN 24 CO 07/02/2019 [id number] IN SERTION OF ENDOTRACHEAL AIRWAY INTO TR 08/26/2019 [id number] RE SPIRATORY VENTILATION, LESS THAN 24 CO 08/26/2019 [id number] RE SPIRATORY VENTILATION, 24- 96 CONSECUTI 08/26/2019 [id number] IN SERTION OF INFUSION DEV INTO SUP VENA 09/15/2019 [id number] IN SERTION OF TIVAD INTO CHEST SUBCU/FASC 09/15/2019 [id number] IN SERTION OF ENDOTRACHEAL AIRWAY INTO TR 09/17/2019 [id number] RE SPIRATORY VENTILATION, LESS THAN 24 CO [...] culture - 08/05/16 21:25 Bacterial urine culture [id number] NRG COLONY COUNT >100,000/ML NRG FTX;REPORTABLE SENSITIVITY [...] ncentration <= NRG Nitrofurantoin susceptibility test by co nimum inhibitory concentration <= NRG Aztreonam susceptibility [...] FOR INFLUENZA A AND B ANTIGENS BY [facility] Complete blood count (CBC) with automate d [...] 7-25 CREATININE 1.57 mg/dL 0.50-1.05 eGFR NON-AFR. CHILEAN 36 mL/min/1.73m2 > OR = 60 eGFR [...] culture - 07/02/19 11:04 Bacterial urine culture [id number] NRG COLONY COUNT >100,000/ML NRG FTX;REPORTABLE SUSCEPTIBILITIES [...] OF GROWTH FEW NRG Bacterial sputum culture [id number] NRG Dirithromycin susceptibility test by dis k [...] < mg/dL <10 PHENOBARBITAL - 08/12/19 05:50 [id number] 11.7 % 15.0-40.0 Urine drug screening test [...] culture - 08/15/19 01:10 Bacterial urine culture [id number] NRG COLONY COUNT 80,000 CFU/ML NRG FTX;REPORTABLE [...] 188.3 pg/mL <100.0 PHENOBARBITAL - 08/26/19 03:55 [id number] 8.0 % 15.0-40.0 Influenza virus A and [...] OF GROWTH Isolated NRG Bacterial blood culture [id number] NRG Methicillin resistant Staphylococcus aur eus (MRSA) [...] INFLUENZA A AND B ANTIGENS BY [place] [facility] Bacterial blood culture - 10/27/19 22:42 QUANTITY OF GROWTH . [facility] Bacterial blood culture SEE COMMEN [facility] Complete blood count (CBC) with automate d [...] INFLUENZA A AND B ANTIGENS BY [place] [facility] Comprehensive metabolic panel - 11/28/19 10:37 Serum [...] or plasma urea nitrogen/creatinine mass ratio 21 [facility] Serum or plasma creatinine measurement w ith calculation of estimated glomerular filtration rate 19 [facility] Serum or plasma glucose measurement (mass/volume) 126 [...] OF GROWTH Isolated NRG Bacterial blood culture [id number] NR FREE TEXT ENTRY 2 SUSCEPTIBILITY REPORTED 12/02/19 11:35 NRG FREE TEXT ENTRY 3 BY RML NRG Bacterial blood culture - 11/28/19 11:05 FREE TEXT EXTERNAL PROBABLE STREPTOCOCCUS GORDONII NRG QUANTITY OF GROWTH Isolated NRG Bacterial blood culture [id number] NR FREE TEXT ENTRY 2 REFER TO [...] culture - 11/28/19 11:20 Bacterial urine culture [id number] NRG COLONY COUNT >100,000/ML NRG FTX;REPORTABLE SUSCEPTIBILITY REPORTED 11/30/19 12: 05 NRG FREE TEXT ENTRY 2 PRELIM RAPID ID TEST AT [facility] 11/29 07:50 NRG FREE TEXT ENTRY [...] 01/08/20 02:17 Bacterial blood culture NG NRG Blood lactic acid measurement (moles/vol ume) - 02/05/20 21:05 Blood lactic acid measurement (moles/volume) 1.02 mmol/L 0.50-2.00 Comprehensive metabolic panel - 02/05/20 21:05 Serum or plasma sodium measurement (moles/volume) 131 mmol/L 135-145 Serum or plasma potassium measurement (moles/volume) 4.8 mmol/L 3.6-5.0 Serum or plasma chloride measurement (moles/volume) 104 mmol/L 98-107 Carbon dioxide 17 mmol/L 21-32 Serum or plasma anion gap determination (moles/volume) 10 mmol/L 5-14 Serum or plasma urea nitrogen measurement (mass/volume ) 53 mg/dL 7-18 Serum or plasma creatinine measurement (mass/volume) 1.83 mg/dL 0.60-1.30 Serum or plasma urea nitrogen/creatinine mass ratio 29 NRG Serum or plasma creatinine measurement w ith calculation of estimated glomerular filtration rate 28 NRG Serum or plasma glucose measurement (mass/volume) 82 mg/dL 70-105 Serum or plasma calcium measurement (mass/volume) 8.3 mg/dL 8.5-10.1 Serum or plasma total bilirubin [...] measurement (mass/volume) 3.6 g/dL 3.2-4.5 CALCIUM CORRECTED 8.6 mg/dL 8.5-10.1 Automated blood complete blood count ( mogram) panel - 02/05/20 21:05 Blood leukocytes automated count (number/volume) 5.5 10*3/uL 4.3-11.0 Blood erythrocytes automated count (number/volume) 3.81 10*6/uL 4.35-5.85 Venous blood hemoglobin measurement (mass/volume) 10.7 g/dL 11.5-16.0 Blood hematocrit (volume fraction) 33 % 35-52 Automated erythrocyte mean corpuscular volume 87 [ foz_us] 80-99 Automated erythrocyte mean corpuscular h emoglobin (mass per erythrocyte) 28 pg 25-34 Automated erythrocyte mean corpuscular h emoglobin concentration measurement (mass/volume) 32 g/dL 32-36 Automated erythrocyte distribution width ratio 16. 7 % 10.0- 14.5 Automated blood platelet count (count/volume) 347 10*3/uL 130-400 Automated blood platelet mean volume measurement 10.8 [foz_us] 7.4-10.4 Complete urinalysis with reflex to cultu re - 02/05/20 21:08 Urine color determination YELLOW NRG Urine clarity determination CLOUDY NR G Urine pH measurement by test strip 6.0 5-9 Specific gravity of urine by test strip 1.015 1.016-1.022 Urine protein assay by test strip, semi-quantitative TRACE NEGATIVE Urine glucose detection by automated test strip NE GATIVE NEGATIVE Erythrocytes detection in urine sediment by light micr oscopy NEGATIVE NEGATIVE Urine ketones detection by automated test strip NE GATIVE NEGATIVE Urine nitrite detection by test strip POSITIVE NEGATIVE Urine total bilirubin detection by test [...] YES NRG Urine drug screening test - 02/05/20 21: 08 Urine phencyclidine detection by screening method NEGATIVE [...] TIVE Urine propoxyphene detection NEGATIVE N EGATIVE Arterial blood gas measurement - 0 22:00 Blood pCO2 41 mm[Hg] 35-45 Blood pO2 145 mm[Hg] 79-93 Arterial blood bicarbonate measurement (moles/volume) 19 mmol/L 23-27 Arterial blood base excess by calculation -6.9 mmo l/L -2.5-2.5 Arterial blood oxygen saturation measurement 98 % 94-100 * Inhaled oxygen flow rate RA NRG Arterial blood pH measurement with patient temperature correction 7.28 7.37-7.43 Arterial blood carbon dioxide, total measurement (mole s/volume) 20.3 mmol/L 21.0-31.0 Body site LEFT RADIAL NRG Assessment of wrist artery patency prior to arterial p uncture POSITIVE NRG Setting of ventilation mode NO NR G Measurement of body temperature 36 NRG Encounters ACCT No. Visit Date/Time Discharge Status Pt. Type Provider Facility Loc./Unit Complaint [id number] 09/13/2014 14:47:00 ACT Unknown [place] 02/03/2015 04:27:10 ACT Document Registration [id number] 01/08/2020 01:15:00 04:55:00 DIS Outpatient CHRISSY GONZALES, SANTHOSH Castellano [facility] ER SEIZURE [id number] 11/28/2019 13:35:00 13:53:00 DIS Inpatient ANGELIQUE GONZALES, JEANIE Boone [facility] ICU ARF, UTI, ABD P AIN [id number] 10/27/2019 21:42:00 03:00:00 DIS Emergency INDRA GONZALES, MICHAEL Valdovinos [facility] ER WEAKNESS [id number] 10/09/2019 14:09:00 17:15:00 DIS Emergency NEERAJ VILLA [employer] MANAGER [facility] ER SEIZURE [id number] 09/14/2019 10:38:00 14:45:00 DIS Inpatient VALDOVINOS DO, RAJAN [facility] ICU SEIZURE; [id number] 08/26/2019 07:23:00 13:46:00 DIS Inpatient JOANN GONZALES, MATTHEW [place] [facility] 4TH ALTERED MENTAL STATUS;A CUTE ON CHRONIC RESP. FAIL- [id number] 08/12/2019 09:48:00 13:00:00 DIS Inpatient JIMENEZ GONZALES, KWAKU James [facility] 4TH SEIZURE,ACUTE RENAL MARTHA LURE, TROPONIN [id number] 07/07/2019 09:23:00 16:40:00 DIS Inpatient VALDOVINOS DO, RAJAN [facility] 4TH CHEST PAIN;DEHYDRATION;DIARRHEA,ACUTE RENAL INSUF. [id number] 07/02/2019 14:23:00 15:35:00 DIS Inpatient VALDOVINOS DO, RAJAN [facility] 4TH AMS, RESPIRATORY FAILUR E, UTI [id number] 05/04/2019 08:39:00 019 12:59:00 DIS Emergency QUIN JONES MD [facility] ER CHEST PAIN [id number] 09/10/2018 20:19:00 018 21:49:00 DIS Emergency NEERAJ VILLA APRN [facility] ER SEIZURE [id number] 08/27/2018 14:28:00 018 23:59:59 CLS Preadmit Paolo PERKINS MD [facility] SLEEP LAUREN [id number] 08/20/2018 10:18:00 23:59:59 CLS Outpatient Paolo PERKINS MD [facility] MODERATE TO SEVERE MITR AL REGURGITATION [id number] 08/03/2018 06:30:00 23:59:59 CLS Outpatient Paolo PERKINS MD [facility] SEVERE MITRAL REGURGITA TION BY PRIOR ECHO [id number] 07/24/2018 13:33:00 Razia 23:59:59 CLS Outpatient Paolo PERKINS MD [facility] CARD I34.0 MITRAL REGURGITAT ION [id number] 07/17/2018 07:52:00 23:59:59 CLS Outpatient Paolo PERKINS MD [facility] LAB N18.9 [id number] 02/20/2018 22:00:00 018 18:50:00 DIS Inpatient DEGROOT DO, GAVI K V [facility] 4TH ELEVATED TROPONIN,ELEVA BRINA D- DIMER,SOA [id number] 02/03/2018 22:20:00 018 01:26:00 DIS Emergency MICHAEL BURRELL MD [facility] ER CP/SEIZURE [id number] 06/18/2017 18:03:00 017 21:14:00 DIS Emergency STAR ORTIZ [facility] ER LT LEG SORE/BRUISING [id number] 03/06/2017 09:45:00 017 11:46:00 DIS Emergency QUIN JONES MD [facility] ER ABD PAIN [id number] 11/23/2016 14:15:00 017 16:00:00 DIS Emergency QUIN JONES MD [facility] ER SOA/COUGH/VOMIT ING [id number] 08/05/2016 20:48:00 016 22:20:00 DIS Emergency KAILA HOLA LANGE [facility] ER R LEG WOUND/PAINFUL URI NATION/LOWER BACK PAIN [id number] 01/27/2016 20:37:00 016 02:05:00 DIS Emergency HOLA BRIGHT DO [facility] ER ABD PAIN,N,V,D [id number] 01/27/2016 01:55:00 016 05:47:00 DIS Emergency SANTHOSH LOWE MD [facility] ER L FLANK PAIN [id number] 02/02/2015 15:37:00 015 17:07:00 DIS Emergency STAR ORTIZ [facility] ER PAIN [id number] 01/19/2015 01:46:00 015 04:46:00 DIS Emergency SANTHOSH LOWE MD [facility] ER MERSA FLARING U P [id number] 11/27/2014 20:30:00 015 22:29:00 DIS Emergency STAR ORTIZ [facility] ER BACK PAIN [id number] 06/07/2014 16:31:00 014 14:12:00 DIS Inpatient GAVI DEGROOT DO, V [facility] ICU INTRACTABLE L HIP PAIN, UNABLE TO CARE FOR SELF [id number] 06/05/2014 13:39:00 014 16:45:00 DIS Emergency STAR ORTIZ [facility] ER FALL NECK PAIN AND VALDEMAR K PAIN [id number] 05/23/2014 20:00:00 014 11:35:00 DIS Inpatient JOANN GONZALES, MATTHEW Longoria [facility] ICU CHEST PAIN,COPD EXACERBATION,ELEVATED D-DIMER [id number] 04/09/2014 13:14:00 014 16:26:00 DIS Emergency NEERAJ VILLA APRN [facility] ER ABD PAIN [id number] 04/06/2014 10:52:00 014 11:45:00 DIS Inpatient MIKAYLA LANGE, GAVI Heath [facility] 4TH RESPIRATORY DISTRESS,HYPOXIA,PNEUMONIA,CHEST PAIN [id number] 03/18/2014 16:36:00 014 18:25:00 DIS Emergency NEERAJ VILLA APRN [facility] ER SOA [id number] 02/04/2014 19:05:00 014 23:17:00 DIS Emergency KAILA DO, HOLA K [facility] ER CHEST PAIN [id number] 11/14/2013 14:21:00 18:24:00 DIS Emergency NEERAJ VILLA APRN [facility] ER LOWER BACK PAIN [id number] 09/28/2013 23:45:00 013 02:02:00 DIS Emergency CHRISSY GONZALES, SANTHOSH Castellano [facility] ER CHEST PAIN [id number] 09/15/2013 12:59:00 14:32:00 DIS Emergency ROBERT GONZALES, QUIN Villavicencio [facility] ER COUGH [id number] 09/13/2013 15:15:00 08:46:00 DIS Inpatient VASILIY GONZALES, ABELARDO Valdovinos [facility] ICU CHEST PAIN, ELEVATED TR OPONIA [id number] 07/29/2013 14:25:00 14:49:00 DIS Outpatient BRI VILLASEÑOR [facility] WOUNDCARE LEG ABSCESS [id number] 06/20/2013 00:03:00 16:42:00 DIS Inpatient DEGROOT , GAVI Alec Heath [facility] SURGICAL MULTIPLE ABSCESSES [id number] 06/04/2013 12:49:00 23:59:59 CLS Outpatient ABELARDO AMANDA MD [facility] RAD CHF [id number] 06/04/2013 10:53:00 23:59:59 CLS Outpatient ABELARDO AMANDA MD [facility] CARD CHF [id number] 05/30/2013 13:54:00 15:27:00 DIS Emergency CHRISSY GONZALES, SANTHOSH Castellano [facility] ER CHEST PAIN [id number] 05/10/2013 01:14:00 14:24:00 DIS Inpatient NGOC CASTILLO MD [facility] ICU NSTEMI,CHEST PAIN,HYPER TENSIVE URGENCY [id number] 04/29/2013 14:28:00 23:59:59 CLS Outpatient [id number] 02/05/2020 22:17:00 Document Registration [id number] 05/15/2018 00:10:00 Document Registration [id number] 01/27/2016 05:53:00 Document Registration [id number] 12/01/2014 13:05:00 Document Registration [id number] 12/17/2012 04:30:00 Document Registration [id number] 08/03/2012 03:50:00 Document Registration [id number] 07/23/2012 17:10:00 Document Registration [id number] 05/25/2012 03:15:00 Document Registration [id number] 05/09/2012 19:20:00 Document Registration [id number] 03/28/2012 06:00:00 Document Registration [id number] 10/10/2011 13:00:00 Document Registration [id number] 07/16/2011 01:55:00 Document Registration [id number] 07/02/2011 06:44:00 Document Registration [id number] 04/12/2011 19:39:00 Document Registration [id number] 03/22/2011 02:40:00 Document Registration [id number] 03/19/2011 17:35:00 Document Registration [id number] 03/03/2011 20:58:00 Document Registration [id number] 01/21/2011 21:56:00 Document Registration [id number] 12/28/2010 15:45:00 Document Registration [id number] 11/04/2010 20:43:00 Document Registration [id number] 02/05/2010 04:25:00 Document Registration [id number] 04/29/2017 09:08:00 Document Registration [id number] 09/18/2016 08:45:00 Document Registration [id number] 01/31/2015 15:03:00 01/31/2015 23:59: 59 CLS Outpatient KRANTHI PRECIADO MD [id number] 11/28/2014 09:37:00 11/28/2014 23:59: 59 CLS Outpatient TRACEE LANGE APRN [id number] 08/05/2014 14:32:00 08/05/2014 23:59: 59 CLS Outpatient TRACEE LANGE APRN [id number] 07/04/2014 12:54:00 07/04/2014 23:59: 59 CLS Outpatient GAVI DEGROOT DO [id number] 05/02/2014 15:01:00 05/02/2014 23:59: 59 CLS Outpatient MIKAYLA LANGE GAVI K [id number] 12/10/2013 14:53:00 12/10/2013 23:59: 59 CLS Outpatient TRACEE LANGE APRN [id number] 09/29/2013 15:37:00 09/29/2013 23:59: 59 CLS Outpatient TRACEE LANGE APRN [id number] 09/18/2013 12:00:00 09/18/2013 23:59: 59 CLS Outpatient TRACEE LANGE APRN [id number] 07/15/2013 14:04:00 07/15/2013 23:59: 59 CLS Outpatient KRANTHI PRECIADO MD [id number] 05/31/2013 09:17:00 05/31/2013 23:59: 59 CLS Outpatient KRANTHI PRECIADO MD [id number] 12/09/2012 17:16:00 12/09/2012 23:59: 59 CLS Outpatient TRACEE LANGE APRN [id number] 10/28/2012 12:04:00 10/28/2012 23:59: 59 CLS Outpatient ANISA TRACEE MOLINA [id number] 10/19/2012 16:04:00 10/19/2012 23:59: 59 CLS Outpatient [id number] 09/16/2012 15:22:00 09/16/2012 23:59: 59 CLS Outpatient [id number] 08/14/2012 10:30:00 08/14/2012 23:59:5 9 CLS Outpatient KRANTHI PRECIADO MD [id number] 05/21/2013 10:29:00 Document Registration [id number] 03/02/2013 15:46:00 Document Registration [id number] 08/18/2019 15:40:00 08/18/2019 23:59:5 9 CLS Outpatient TRACEE LANGE APRN [facility] [id number] 06/11/2019 13:40:00 Document Registration [id number] 05/05/2019 10:40:00 Document Registration [id number] 11/30/2018 15:40:00 Document Registration [id number] 09/04/2018 11:00:00 Document Registration
--- NOTE | 2020-02-06 00:15 | NUR ---
KEREN MAX admitted to room 413-1, with an admitting diagnosis of seizure disorder, uti, meth abuse & unresponsiveness, on 02/05/20 from ED via cart, accompanied by ED staff.KEREN MAX introduced to surroundings, call light, bed controls, phone, TV, temperature control, lights, meal times, smoking policy, visitor policy, side rail policy, bathrooms and showers but is unable to comprehend education at this time.. Patient Rights given to patient in the handbook. KEREN MAX unable to verbalize understanding that [facility] is not responsible for the loss or damage to any personal effects or valuables that are kept in the patients possession during their hospitalization, pt's wallet & medications were locked up in internet sourcer her room.
[2020-02-06] MEDS: NS IV 1000 ML 1,000 ML IV SCH ×3 (01:00→22:17)
--- NOTE | 2020-02-06 01:00 | NUR ---
pt only arousing to painful stimuli-pt is a poor historian, much of pt admission was completed by recalling. the only appropriate response that this rn is getting from this pt is what this pt name is "umberto", which is how she is answering every question that this rn asks the pt "umberto" then goes back to sleep.
[2020-02-06 02:34] VITALS: BP 132/78
[2020-02-06 04:00] VITALS: BP 145/72
[2020-02-06 06:14] LABS: BASOPHILS % (AUTO) 0 % (0-10); EOSINOPHILS # (AUTO) 0.2 10^3/uL (0.0-0.3); EOSINOPHILS % (AUTO) 4 % (0-10); HEMATOCRIT 34 % (35-52); HEMOGLOBIN 10.8 G/DL (11.5-16.0); LYMPHOCYTES # (AUTO) 1.5 X 10^3 (1.0-4.0); LYMPHOCYTES % (AUTO) 35 % (12-44); MEAN CORPUSCULAR HEMOGLOBIN 28 PG (25-34); MEAN CORPUSCULAR HGB CONC 32 G/DL (32-36); MEAN CORPUSCULAR VOLUME 87 FL (80-99); MEAN PLATELET VOLUME 10.1 FL (7.4-10.4); MONOCYTES # (AUTO) 0.3 X 10^3 (0.0-1.0); MONOCYTES % (AUTO) 7 % (0-12); NEUTROPHILS # (AUTO) 2.4 X 10^3 (1.8-7.8); NEUTROPHILS % (AUTO) 54 % (42-75); PLATELET COUNT 339 10^3/uL (130-400); RED CELL DISTRIBUTION WIDTH 16.6 % (10.0-14.5); WHITE BLOOD COUNT 4.5 10^3/uL (4.3-11.0)
[2020-02-06 06:28] LABS: ALBUMIN 3.3 GM/DL (3.2-4.5); BILIRUBIN,TOTAL 0.1 MG/DL (0.1-1.0); CALCIUM 8.1 MG/DL (8.5-10.1); CREATININE SERUM 1.52 MG/DL (0.60-1.30); POTASSIUM 4.5 MMOL/L (3.6-5.0); TOTAL PROTEIN 6.5 GM/DL (6.4-8.2)
--- NOTE | 2020-02-06 07:11 | Diagnostic Imaging Report ---
PROCEDURE: CT head without contrast. TECHNIQUE: Multiple contiguous axial images were obtained through the brain without the use of intravenous contrast. Auto Exposure Controls were utilized during the CT exam to meet ALARA standards for radiation dose reduction. INDICATION: Altered mental status. Seizure. FINDINGS: The ventricles are not dilated. Cortical gyral pattern is normal. There is no intracranial hemorrhage. No mass effect. No extra-axial fluid collection. There are a few small subtle areas of decreased density in the region of the right centrum semi-ovale which are likely secondary to chronic small vessel disease. Pituitary is not enlarged. Mastoid air cells are clear. IMPRESSION: No acute changes have occurred when compared with 01/08/2020. White matter changes again noted consistent with chronic small vessel disease. These findings are concordant with the preliminary report. Dictated by: Dictated on workstation # [id number]
[2020-02-06 08:00] VITALS: BP 162/83
[2020-02-06] MEDS: LEVETIRACETAM 1,000 MG/NS 100 ML IVPB IV SCH ×4 (08:23→22:17)
[2020-02-06] MEDS: ENOXAPARIN 40 MG/0.4 ML (LOVENOX) SYR SC SCH (09:00)
[2020-02-06] MEDS ORDERED: LEVETIRACETAM INJECTION 1,000 MG in NS (IVPB) 100 ML IV SCH (09:00)
[2020-02-06 12:00] VITALS: BP 119/83
--- NOTE | 2020-02-06 12:16 | History & Physical-Hospitalist ---
History of Present Illness HPI/Chief Complaint 59-year-old female brought in by EMS. Patient brought in with "seizure-like activity" patient with known seizure disorder and methamphetamine abuse. Family called and reports that patient has not been taking her medications. Patient had an unknown seizure time but believed to be greater than 30 minutes. Patient was given Narcan in the field with no response. Patient sister called reports that patient is a DO NOT RESUSCITATE, DO NOT INTUBATE. Patient has had multiple similar presentations to this ER in the past. No other history of present illness available at this time. This morning around 9 o'clock in evaluation the patient would open eyes and smile she was moving all extremities but then would go back to sleep and would not answer questions. She did not appear to be in acute distress but was unable to give any history. Nursing staff report no problems the patient overnight and no evidence for further seizures or agitated behavior. Date Seen 02/06/20 Time Seen by a Provider: 10:00 Attending Physician Domitila Mistry MD [facility] Referring Physician Date of Admission Feb 05, 2020 at 21:48 Home Medications & Allergies Home Medications Reviewed patient Home Medication Reconciliation performed by pharmacy medication reconciliations semiconductor manufacturing technician and/or nursing. Patients Allergies have been reviewed. Allergies Allergies Coded Allergies nitrous oxide (Verified Allergy, Unknown, 06/08/07) Past Qythcpa-Eflvam-Bujvto Hx Past Med/Social Hx: Reviewed Nursing Past Med/Soc Hx, Reviewed and Corrections made Patient Social History Alcohol Use: Denies Use Drug of Choice: + IV METH USE, THC USE Type Used: Cigarettes 2nd Hand Smoke Exposure: Yes Recent Foreign Travel: No Contact w/other who traveled: No Recent Hopitalizations: No Recent Infectious Disease Expo: No Immunizations Up To Date Tetanus Booster (TDap): Less than 5yrs Pediatric: No Date of Pneumonia Vaccine: Jul 13, 2012 Date of Influenza Vaccine: Jul 15, 2019 Seasonal Allergies Seasonal Allergies: No Past Medical History Surgeries: Abdominal, Adenoidectomy, Cardiac, Section, Hysterectomy, Oophorectomy, Tonsillectomy Respiratory: Pneumonia Currently Using CPAP: No Currently Using BIPAP: No Cardiac: Cardiomyopathy, Coronary Artery Disease, Endocarditis, Heart Attack, Hypertension, Peripheral Vascular, Valvular Heart Disease Neurological: Concussion, Seizure Disorder, Stroke, Traumatic Brain Injury 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: No Sexually Transmitted Disease: No HIV/AIDS: No Female 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 Hysterectomy, Menopausal Genitourinary: Kidney Infection, Bladder Infection, Kidney Stones, Renal Failure, UTI-Chronic Gastrointestinal: Abdominal Hernia, Gastroesophageal Reflux, Pancreatitis, Hepatitis Musculoskeletal: Arthritis, Chronic Back Pain Endocrine: Diabetes, Non-Insulin dep Loss of Vision: Denies Hearing Impairment: Denies Cancer: Cervical Psychosocial: Anxiety, Bipolar, Depression History of Blood Disorders: Yes (ANEMIA OF CHRONIC DISEASE) Adverse Reaction to Blood New: No Family History Abdominal aortic aneurysm 03 FATHER Alcoholism 03 FATHER 03 MOTHER 09 SISTER 09 SISTER Cancer 03 FATHER Cataract 03 FATHER 03 MOTHER Chest pain 03 MOTHER Family history: Diabetes mellitus 03 MOTHER Family history: Hypertension 03 MOTHER Family history: Thyroid disorder 03 MOTHER Headache 09 SISTER Heart disease 03 MOTHER History of drug abuse 03 FATHER 09 SISTER Myocardial infarction 03 MOTHER No Family History of: Sampson's disease Aphasia Cancer of colon Congenital heart disease Congestive heart failure Cystic fibrosis Dementia Dysphagia Family history: Allergy Family history: Alzheimer's disease Family history: Arthritis Family history: Asthma Family history: Breast disease Family history: Cardiovascular disease Family history: Coronary thrombosis Family history: Gastrointestinal disease Family history: Glaucoma Family history: Osteoporosis Hearing loss Hereditary disease History of - anemia History of - disorder History of - respiratory disease Human immunodeficiency virus (HIV) seropositivity Hypercholesterolemia Infertile Kidney disease Malignant neoplasm of lung Parkinson's disease Prostate cancer Psychotic disorder Seizure disorder Stroke Tuberculosis Visual impairment AAA, Heart Disease, Diabetes Review of Systems Constitutional: see HPI Physical Exam Physical Exam Vital Signs Vital Signs - First Documented 02/05/20 02/05/20 02/05/20 20:59 21:15 23:43 Temp 35.6 Pulse 59 Resp 14 B/P (MAP) 119/54 (75) Pulse Ox 100 O2 Delivery Room Air O2 Flow Rate 3.00 Capillary Refill : Less Than 3 SecondsLess Than 3 Seconds Height, Weight, BMI Height: 5'3.00" Weight: 155lbs. 8.0oz. 70.411787wt; 27.38 BMI Method:Stated General Appearance: No Apparent Distress, Chronically ill Neck: Full Range of Motion, Supple Respiratory: Chest Non Tender, Lungs Clear, Normal Breath Sounds, No Accessory Muscle Use, No Respiratory Distress Cardiovascular: Regular Rate, Rhythm, No Edema, No Gallop, No JVD, No Murmur, Normal Peripheral Pulses Gastrointestinal: Normal Bowel Sounds, No Organomegaly, No Pulsatile Mass, Non Tender, Soft Extremity: Other (patient does have some lower extremity shallow ulceration with demarcation. There is one small area of erythema on her left knee that she did not react to when palpated. No evidence for joint swelling or erythema noted dorsalis pedis pulses 2+ and symmetrical trace pedal edema.) Neurologic/Psychiatric: Other (patient arouses to verbal stimulation but does not answer any questions. She rolled over in bed appears to be moving all extremities.) Results Results/Procedures Labs Laboratory Tests 02/05/20 21:05 02/06/20 06:00 Patient resulted labs reviewed. Assessment/Plan Admission Diagnosis A/P. 1. Generalized seizure disorder aggravated by methamphetamine use. This is just one of multiple admissions in postictal state following meth abuse. We'll continue IV Keppra as the patient is still postictal until she can demonstrate adequate swallowing. Overall prognosis extremely poor continued DNR/DNI status. Admission Status: Observation Reason for Inpatient Admission: See admission diagnosis Clinical Quality Measures DVT/VTE Risk/Contraindication: Risk Factor Score Per Nursin RFS Level Per Nursing on Admit: 4+=Very High DOMITILA MISTRY MD Feb 06, 2020 12:16
[2020-02-06 15:35] VITALS: BP 188/99
--- NOTE | 2020-02-06 15:50 | NUR ---
DR Sarkar notified of BP 188/99
[2020-02-06] MEDS ORDERED: amLODIPine 10 MG (NORVASC) TAB PO NR (16:15)
[2020-02-06] MEDS ORDERED: AMLO10TA7 PO (17:45)
[2020-02-06] MEDS ORDERED: CLON0.2T PO (17:46)
[2020-02-06] MEDS ORDERED: CARV25TA PO (17:46)
[2020-02-06] MEDS ORDERED: CYCL10TA9 PO (17:49)
[2020-02-06] MEDS ORDERED: LEVE10006 PO (17:50)
[2020-02-06] MEDS ORDERED: HYDR100T27 PO (17:50)
[2020-02-06] MEDS ORDERED: MTP100TCR PO (17:51)
[2020-02-06] MEDS ORDERED: OXCA300T18 PO (17:56)
[2020-02-06] MEDS ORDERED: ERGO50006 PO (18:01)
[2020-02-06] MEDS: LORazepam INJ 2 MG/ML (ATIVAN) VIAL IV PRN (18:41)
--- NOTE | 2020-02-06 18:46 | NUR ---
Pt had approx 7 min long seizure ending at 1840. Pt was placed on her side from sitting position, airway and head were protected, pt resting at this time. O2 97% on RA, will continue to monitor. Dr Sarkar notified.
[2020-02-06 19:35] VITALS: BP 142/66
[2020-02-06] MEDS: PHENobarbital 64.8 MG (1 GRAIN) TAb PO SCH (21:29)
[2020-02-06] MEDS: cefTRIAXone 1,000 MG/SWFI 10 ML IV PUSH IV SCH ×2 (22:23)
[2020-02-07] VITALS: BP 169/83
[2020-02-07 04:00] VITALS: BP 140/88
[2020-02-07 07:59] VITALS: BP 172/70
[2020-02-07] MEDS: NS IV 1000 ML 1,000 ML IV SCH ×2 (08:18→17:08)
[2020-02-07] MEDS: amLODIPine 5 MG (NORVASC) TAB PO SCH (08:19)
[2020-02-07] MEDS: LOSARTAN 100 MG (COZAAR) TABLET PO SCH (08:19)
[2020-02-07] MEDS: LEVETIRACETAM 1,000 MG/NS 100 ML IVPB IV SCH ×2 (08:19)
[2020-02-07] MEDS: PHENobarbital 64.8 MG (1 GRAIN) TAb PO SCH ×2 (08:19→21:18)
[2020-02-07] MEDS: ENOXAPARIN 40 MG/0.4 ML (LOVENOX) SYR SC SCH (08:19)
--- NOTE | 2020-02-07 09:18 | NUR ---
PRIOR TO A.M. MEDICATIONS PULSE WAS 96 AND B/P WAS 172/70
[2020-02-07 12:26] VITALS: BP 187/92
--- NOTE | 2020-02-07 12:33 | NUR ---
CONTACTED DR. DAVID ABOUT PATIENT'S B/P NEW ORDERS FOR B/P MEDICATIONS SEE EMAR FOR DETAILS.
[2020-02-07] MEDS: hydrALAZINE (APRESOLINE) 25 MG TAB PO SCH ×2 (13:05→21:18)
--- NOTE | 2020-02-07 13:30 | NUR ---
Pastoral care visit.
--- NOTE | 2020-02-07 14:11 | Progress Note ---
Subjective Subjective/Events-last exam 59 yo female brought to ER due to reported prolonged seizure. She was apparently alert and had intact airway but not answering questions yesterday. Today she is alert and oriented except to year and answering questions appropriately. Focused Exam Lactate Level 02/05/20 21:05: Lactic Acid Level 1.02 Objective Exam Last Set of Vital Signs Vital Signs Date Time Temp Pulse Resp B/P (MAP) Pulse Ox O2 Delivery O2 Flow Rate FiO2 02/07/20 12:26 36.8 85 16 187/92 (123) 98 Room Air 02/07/20 08:21 3.00 Capillary Refill : Less Than 3 SecondsLess Than 3 Seconds I&O Intake and Output 02/07/20 00:00 Intake Total 2840 ml Output Total 3200 ml Balance -360 ml Intake Oral 1120 ml IV Total 1720 ml Output Urine Total 3200 ml General: Alert, No Acute Distress Extremities: No Edema Skin: Other (chronic wound on left medel) Neuro: Normal Speech, Strength at 5/5 X4 Ext, Cranial Nerves 3-12 NL Results/Procedures Lab Microbiology 02/05/20 Urine Culture - Final, Complete Escherichia coli Assessment/Plan Assessment/Plan (1) Acute renal insufficiency Status: Acute Assessment & Plan: Improving with IVF, monitor. (2) Hypertension Status: Chronic Assessment & Plan: Resume home meds Qualifiers: Qualified Codes: I10 - Essential (primary) hypertension (3) Methamphetamine abuse Status: Chronic Assessment & Plan: She declines treatment at this time (4) Anemia Status: Chronic (5) UTI (urinary tract infection) Status: Acute Assessment & Plan: On ceftriaxone, culture pending (6) Seizure disorder Status: Chronic Assessment & Plan: Resume home seizure medications, no seizure activity since admission. (7) Unresponsive state Status: Resolved Assessment & Plan: CT head negative. Apparently post-ictal, resolved at this time. (8) DVT prophylaxis Status: Acute Assessment & Plan: Enoxaparin Clinical Quality Measures DVT/VTE Risk/Contraindication: Risk Factor Score Per Nursin RFS Level Per Nursing on Admit: 4+=Very High MATTHEW DAVID MD Feb 07, 2020 14:11
[2020-02-07 16:00] VITALS: BP 158/87
--- NOTE | 2020-02-07 16:12 | NUR ---
Pt lives alone in subsidized housing in [place], [place]. She has long standing seizure disorder and drug and alcohol addiction but has been actively involved in the AA community. She also has a paid caregiver who in the past has provided her services on nearly daily basis, Will follow and assist with transportation and continued care needs.
[2020-02-07] MEDS ORDERED: PATIENT MAY USE OWN MED,SINGLE MED PO SCH (16:15)
[2020-02-07 19:59] VITALS: BP 182/98
[2020-02-07] MEDS: cefTRIAXone 1,000 MG/SWFI 10 ML IV PUSH IV SCH ×2 (21:15)
[2020-02-07] MEDS: CARVEDILOL 12.5 MG (COREG) TABLET PO SCH (21:18)
[2020-02-07] MEDS: LEVETIRACETAM 1,000 MG (KEPPRA) TABLET PO SCH (21:18)
[2020-02-07] MEDS: FAMOTIDINE 20 MG (PEPCID) TABLET PO SCH (21:18)
[2020-02-07] MEDS: cloNIDine 0.2 MG (CATAPRES) TAB PO SCH (21:18)
[2020-02-07] MEDS: OXcarbazepine (TRILEPTAL) 300 MG TAB PO SCH (21:18)
[2020-02-07] MEDS: PRAZOSIN 1 MG CAPSULE (MINIPRESS) NON-FORMULARY PO SCH (21:19)
[2020-02-08] VITALS (7 sets, daily range): BP systolic 131–172; BP diastolic 68–84
[2020-02-08] MEDS: NS IV 1000 ML 1,000 ML IV SCH ×3 (04:10→23:24)
[2020-02-08 04:24] LABS: RED CELL DISTRIBUTION WIDTH 16.1 % (10.0-14.5)
[2020-02-08 04:29] LABS: POTASSIUM 4.3 MMOL/L (3.6-5.0)
[2020-02-08 04:30] LABS: CALCIUM 8.1 MG/DL (8.5-10.1)
[2020-02-08 04:35] LABS: CREATININE SERUM 1.29 MG/DL (0.60-1.30)
[2020-02-08] MEDS: LORazepam INJ 2 MG/ML (ATIVAN) VIAL IV PRN ×2 (08:13→19:36)
[2020-02-08] MEDS: PHENobarbital 64.8 MG (1 GRAIN) TAb PO SCH ×2 (08:14→21:08)
[2020-02-08] MEDS: OXcarbazepine (TRILEPTAL) 300 MG TAB PO SCH ×2 (08:14→21:09)
[2020-02-08] MEDS: hydrALAZINE (APRESOLINE) 25 MG TAB PO SCH ×3 (08:14→21:08)
[2020-02-08] MEDS: FAMOTIDINE 20 MG (PEPCID) TABLET PO SCH ×2 (08:14→21:09)
[2020-02-08] MEDS: LEVETIRACETAM 1,000 MG (KEPPRA) TABLET PO SCH ×2 (08:14→21:10)
[2020-02-08] MEDS: LOSARTAN 100 MG (COZAAR) TABLET PO SCH (08:14)
[2020-02-08] MEDS: cloNIDine 0.2 MG (CATAPRES) TAB PO SCH ×2 (08:14→21:08)
[2020-02-08] MEDS: meTOprolol SUCCINATE 100 MG (TOPROL XL) TAB PO SCH (08:15)
[2020-02-08] MEDS: ENOXAPARIN 40 MG/0.4 ML (LOVENOX) SYR SC SCH (08:15)
[2020-02-08] MEDS: CARVEDILOL 12.5 MG (COREG) TABLET PO SCH ×2 (08:15→21:09)
[2020-02-08] MEDS: amLODIPine 5 MG (NORVASC) TAB PO SCH (08:15)
--- NOTE | 2020-02-08 08:28 | NUR ---
THIS RN IN PATIENT ROOM AT 0800 TO GIVE MORNING MEDICATIONS. PATIENT SITTING UP IN BED HAVING CONVERSATION WITH THIS RN. 0801 PATIENT BEGINS LEANING BACK INTO HER BED AND STARTS HAVING TONIC CLONIC SEIZURE ACTIVITY, AND EYES ROLLING. THIS RN GAVE 2 MG ATIVAN IVP AT 0811 BUT CHARTED AT 0813. THIS RN ALSO SUCTIONED MUCUS FROM HER BACK OF HER THROAT AT 0806. SEIZURE LIKE ACTIVITY STOPPED AT 0812. PATIENT BEING TALKING TO THIS RN AND TOOK ALL OF HER A.M. MEDICATIONS. THIS RN WILL CONT. TO MONITOR THIS PATIENT THROUGHOUT THE REST OF THE SHIFT. THIS RN WILL NOTIFY DR. DAVID OF THIS OCCURRENCE.
[2020-02-08] MEDS ORDERED: HYDR-700 PO (09:05)
[2020-02-08] MEDS ORDERED: OXCA300T18 PO ×2 (09:12→11:05)
[2020-02-08] MEDS ORDERED: LOSA100T57 PO (09:12)
[2020-02-08] MEDS ORDERED: LEVE500T6 PO ×2 (09:12→11:05)
--- NOTE | 2020-02-08 09:15 | NUR ---
UNABLE TO SPEAK TO THE PT AT THIS TIME- [facility]POKE WITH A NURSE AT [facility] TO COMPLETE THE MED REC THE FOLLOWING ARE FILL DATES FROM [facility]: 12-14-2019 CYCLOBENZAPRINE 10MG #90/30DS (PRN) 01-20-2020 CLONIDINE 0.2MG #60/30DS 01-20-2020 HYDROXYZINE 25MG #60/30DS 01-20-2020 LORATADINE 10MG #30/30DS 01-20-2020 METOPROLOL SUCC 100MG #30/30DS 01-20-2020 PRAZOSIN 1MG #30/30DS 01-20-2020 HYDRALAZINE 100MG #90/90DS 01-20-2020 FAMOTIDINE 20MG #60/30DS 01-20-2020 AMLODIPINE 10MG #30/30DS 01-21-2020 PHENOBARBITAL 64.8MG #120/30DS 01-22-2020 VIT D 50,000 #13/90DS THE FOLLOWING MEDICATIONS ARE PAST DUE FOR REFILLS AND I DOCUMENTED THE PAST DUE DATES ON THE MED REC: 12-07-2019 OXCARBAZEPINE 300MG #120/30DS 12-07-2019 LEVETIRACETAM 500MG #120/30DS 12-17-2019 COREG 25MG #60/30DS WHEN I SPOKE WITH THE [facility] I WAS TOLD THE FOLLOWING MEDICATION HAD BEEN DISCONTINUED: LOSARTAN 100MG DC'D ON 01-20-2020 SEROQUEL 25MG DC'D ON 01-04-2020 I LEFT OTC TYLENOL ON THE MED REC FROM PAST ADMISSIONS
--- NOTE | 2020-02-08 10:53 | NUR ---
Contacted [place] [employer] and they report that currently pt has no caregiver. Her long time caregiver quit due to pt's meth use and refuses to assist. [place] [employer] states pt is at risk at home as has seizures continually and needs a guardian Contacted pt's sister and DPOA and left message. Casemanager suggest that pt seek a short-term placement in [place].Will discuss with Dr. Roach.
--- NOTE | 2020-02-08 11:08 | Discharge Summary ---
Discharge Summary Hospital Course Problems/Diagnosis: (1) Acute renal insufficiency Status: Resolved Resolution Date/Time: 02/08/20 @ 11:05 Assessment & Plan: Improving with IVF, monitor. (2) Hypertension Status: Chronic Assessment & Plan: Resume home meds Qualifiers: Qualified Codes: I10 - Essential (primary) hypertension (3) Methamphetamine abuse Status: Chronic Assessment & Plan: She declines treatment at this time (4) Anemia Status: Chronic (5) UTI (urinary tract infection) Status: Acute Assessment & Plan: On ceftriaxone, culture pending Culture with E coli resistant to ampicillin and bactrim, d/c with macrobid. (6) Seizure disorder Status: Chronic Assessment & Plan: Resume home seizure medications, had one 1 minutes seizure inpatient, was out of Keppra and oxcarbazepine as of 01/05/2020 per pharmacy refill documentation- refills sent on d/c and flexeril stopped as it can be associated with seizures. (7) Unresponsive state Status: Resolved Resolution Date/Time: 02/07/20 @ 14:10 Assessment & Plan: CT head negative. Apparently post-ictal, resolved at this time. Hospital Course Date of Admission: Feb 05, 2020 at 21:48 Admission Diagnosis : Family Physician/Provider: [place]/[facility] Date of Discharge: 02/08/20 Discharge Diagnosis: See problem list Hospital Course: See problem list Labs and Pending Lab Test: Laboratory Tests 02/08/20 04:05: White Blood Count 4.0L, Red Blood Count 3.54L, Hemoglobin 10.0L, Hematocrit 31L, Mean Corpuscular Volume 87, Mean Corpuscular Hemoglobin 28, Mean Corpuscular Hemoglobin Concent 33, Red Cell Distribution Width 16.1H, Platelet Count 321, Mean Platelet Volume 10.0, Sodium Level 138, Potassium Level 4.3, Chloride Level 108H, Carbon Dioxide Level 21, Anion Gap 9, Blood Urea Nitrogen 22H, Creatinine 1.29, Estimat Glomerular Filtration Rate 42, BUN/Creatinine Ratio 17, Glucose Level 124H, Calcium Level 8.1L Microbiology 02/05/20 Urine Culture - Final, Complete Escherichia coli 02/05/20 Blood Culture - Preliminary, Resulted Staph, Coag Neg (NARROW FABRIC CALENDERER) See Comments Home Meds Active Levetiracetam 500 Mg Tablet 1,000 Mg PO BID 30 Days LAST FILLED 12-07-2019 #120 TAKES 2 (500MG) TABS TWICE DAILY Oxcarbazepine 300 Mg Tablet 600 Mg PO BID 30 Days LAST FILLED 12-07-2019 #120 TAKES 2 (300MG)TABS TWICE DAILY Reported Hydroxyzine HCl 25 Mg Tablet 25 Mg PO BID PRN Vitamin D2 (Ergocalciferol (Vitamin D2)) 1,250 Mcg Capsule 1,250 Mcg PO WEEK Metoprolol Succinate 100 Mg Tab.er.24h 100 Mg PO DAILY Cyclobenzaprine HCl 10 Mg Tablet 10 Mg PO TID PRN Acid Taste Tester (FAMOTIDINE) (Famotidine) 20 Mg Tablet 20 Mg PO BID Coreg (Carvedilol) 25 Mg Tab 25 Mg PO BID LAST FILLED 12-17-2019 #60 Phenobarbital 64.8 Mg Tablet 129.6 Mg PO BID TAKES 2 (64.8MG) TABS TO EQUAL 129.6 Hydralazine HCl 100 Mg Tablet 100 Mg PO TID Loratadine 10 Mg Tablet 10 Mg PO DAILY Clonidine HCl 0.2 Mg Tablet 0.2 Mg PO BID Amlodipine Besylate 10 Mg Tablet 5 Mg PO BID TAKES OF A 10MG TAB TWICE DAILY Prazosin HCl 1 Mg Capsule 1 Mg PO HS Tylenol Extra Strength (Acetaminophen) 500 Mg Tablet 1,000 Mg PO Q6H PRN Assessment/Pt DC Instructions Follow up with Nabil Abdi APRN on 02/10 at 2:40 pm. Discharge Diet: Regular Diet Activity as Tolerated: Yes Discharge Physical Examination Allergies: Coded Allergies: nitrous oxide (Verified Allergy, Unknown, 06/08/07) General Appearance: WD/WN Respiratory: Lungs Clear, Normal Breath Sounds Cardiovascular: Regular Rate, Rhythm Extremity: No Pedal Edema Skin: Other (chronic wound on medel) Copy Copies To 1: Nabil Abdi APRN Clinical Quality Measures DVT/VTE Risk/Contraindication: Risk Factor Score Per Nursin RFS Level Per Nursing on Admit: 4+=Very High MATTHEW DAVID MD Feb 08, 2020 11:08
[2020-02-08] MEDS ORDERED: NITR-65 PO (11:09)
--- NOTE | 2020-02-08 11:51 | NUR ---
Contacted local alf in [place] and they state they have no current vacancy also would refuse admission if pt not willing to be admitted and would likely leave. Pt was sedated when I talked with her early this morning. Pt has always wanted to remain at home but she is at risk with unknown support system. Made Adult Protection Report to [place] as [place] refused to take report since pt currently hospitalized in [place] that pt was vulnerable and at risk. Report #[id number]. Contacted Yi Nina at the [facility] and requested in-home care for pt and states will begin working on that arrangement. Will Discuss continued care options with patient.
--- NOTE | 2020-02-08 14:08 | NUR ---
REPORT RECEIVED FROM YARIEL HILL. ASSUMED CARE OF THE PATIENT AT THIS TIME. PATIENT IS RESTING WITH EYES CLOSED. WILL CONTINUE TO MONITOR.
--- NOTE | 2020-02-08 14:19 | NUR ---
Pt still sleeping and unable to discuss continued care options. Notified [facility] of pt's probable discharge tomorrow and need for in-home care. Adult Protection Report pending.Dr. Roach agreeable with pt remaining till tomorrow when continued care plans in place as pt considered vulnerable and at risk.
--- NOTE | 2020-02-08 19:45 | NUR ---
PT HAD A 8 MIN LONG SEIZURE. SEIZURE LIKE ACTIVITY STOP AT 1928. PT WAS PLACED ON HER SIDE, AIRWAY AND HEAD PROTECTED. PCT IN THE ROOM ALSO. 2 MG OF ATIVAN IVP GIVEN. PT RESTING AT THIS TIME PT ABLE TO OPEN HER EYES AND SAY NAME. DR DAVID NOTIFIED.
[2020-02-08 20:54] LABS: BASOPHILS % (AUTO) 1 % (0-10); EOSINOPHILS # (AUTO) 0.2 10^3/uL (0.0-0.3); EOSINOPHILS % (AUTO) 5 % (0-10); HEMATOCRIT 32 % (35-52); HEMOGLOBIN 10.3 G/DL (11.5-16.0); LYMPHOCYTES # (AUTO) 1.5 X 10^3 (1.0-4.0); LYMPHOCYTES % (AUTO) 33 % (12-44); MEAN CORPUSCULAR HEMOGLOBIN 28 PG (25-34); MEAN CORPUSCULAR HGB CONC 32 G/DL (32-36); MEAN CORPUSCULAR VOLUME 88 FL (80-99); MONOCYTES # (AUTO) 0.3 X 10^3 (0.0-1.0); MONOCYTES % (AUTO) 6 % (0-12); NEUTROPHILS # (AUTO) 2.5 X 10^3 (1.8-7.8); NEUTROPHILS % (AUTO) 56 % (42-75); PLATELET COUNT 322 10^3/uL (130-400); RED CELL DISTRIBUTION WIDTH 16.1 % (10.0-14.5); WHITE BLOOD COUNT 4.5 10^3/uL (4.3-11.0)
[2020-02-08] MEDS: cefTRIAXone 1,000 MG/SWFI 10 ML IV PUSH IV SCH ×2 (20:55)
[2020-02-08] MEDS: PRAZOSIN 1 MG CAPSULE (MINIPRESS) NON-FORMULARY PO SCH (21:08)
[2020-02-09 04:45] VITALS: BP 150/78
[2020-02-09 05:20] LABS: HEMOGLOBIN 10.6 G/DL (11.5-16.0); MEAN PLATELET VOLUME 10.2 FL (7.4-10.4); RED CELL DISTRIBUTION WIDTH 16.1 % (10.0-14.5); WHITE BLOOD COUNT 4.8 10^3/uL (4.3-11.0)
[2020-02-09 05:40] LABS: ALBUMIN 3.2 GM/DL (3.2-4.5); BILIRUBIN,TOTAL 0.1 MG/DL (0.1-1.0); CALCIUM 8.4 MG/DL (8.5-10.1); CREATININE SERUM 1.13 MG/DL (0.60-1.30); POTASSIUM 5.5 MMOL/L (3.6-5.0); TOTAL PROTEIN 6.5 GM/DL (6.4-8.2)
[2020-02-09] MEDS: NS IV 1000 ML 1,000 ML IV SCH ×2 (08:14→18:19)
[2020-02-09] MEDS: LOSARTAN 100 MG (COZAAR) TABLET PO SCH (08:15)
[2020-02-09] MEDS: CARVEDILOL 12.5 MG (COREG) TABLET PO SCH ×2 (08:15→19:21)
[2020-02-09] MEDS: amLODIPine 5 MG (NORVASC) TAB PO SCH (08:15)
[2020-02-09] MEDS: hydrALAZINE (APRESOLINE) 25 MG TAB PO SCH ×3 (08:15→19:22)
[2020-02-09] MEDS: PHENobarbital 64.8 MG (1 GRAIN) TAb PO SCH ×2 (08:15→19:21)
[2020-02-09] MEDS: FAMOTIDINE 20 MG (PEPCID) TABLET PO SCH ×2 (08:15→19:21)
[2020-02-09] MEDS: meTOprolol SUCCINATE 100 MG (TOPROL XL) TAB PO SCH (08:15)
[2020-02-09] MEDS: OXcarbazepine (TRILEPTAL) 300 MG TAB PO SCH ×2 (08:16→19:21)
[2020-02-09] MEDS: ENOXAPARIN 40 MG/0.4 ML (LOVENOX) SYR SC SCH (08:16)
[2020-02-09] MEDS: cloNIDine 0.2 MG (CATAPRES) TAB PO SCH ×2 (08:16→19:21)
[2020-02-09] MEDS: LEVETIRACETAM 1,000 MG (KEPPRA) TABLET PO SCH ×2 (08:16→19:21)
--- NOTE | 2020-02-09 10:16 | Progress Note ---
Subjective Subjective/Events-last exam Plan was to d/c yesterday after she had reportedly returned to being alert and oriented after her ativan wore off, however, later in the day she was again appearing overly sedated, unable to communicate clearly and unsafe for discharge. Additionally, social work noted that her home is not habitable at this time. Last night she had an 8 minute tonic clonic generalized seizure per nursing report and was given ativan again. Keppra dose increased last night, labs were unremarkable. This morning, per nursing she was awake and speaking normally and able to take her medications, but about an hour later when I saw her she was sleeping deeply, briefly opened eyes to voice and moaned but does not wake up and answer any questions. Objective Exam Last Set of Vital Signs Vital Signs Date Time Temp Pulse Resp B/P (MAP) Pulse Ox O2 Delivery O2 Flow Rate FiO2 02/09/20 08:46 Room Air 02/09/20 04:45 36.4 81 20 150/78 (102) 99 02/08/20 08:00 3.00 Capillary Refill : Less Than 3 SecondsLess Than 3 Seconds I&O Intake and Output 02/09/20 00:00 Intake Total 4940 ml Output Total 4300 ml Balance 640 ml Intake Oral 2640 ml IV Total 2300 ml Output Urine Total 4300 ml Daily Weight Change No General: Other (somnolent) Lungs: Clear to Auscultation Heart: Regular Rate, No Murmurs Abdomen: Normal Bowel Sounds, Soft Psych/Mental Status: Other (somnolent, moans and mumbles but does not meaningfully answer questions. No seizure like movements noted.) Results/Procedures Lab Laboratory Tests 02/08/20 20:40: White Blood Count 4.5, Red Blood Count 3.70L, Hemoglobin 10.3L, Hematocrit 32L, Mean Corpuscular Volume 88, Mean Corpuscular Hemoglobin 28, Mean Corpuscular Hemoglobin Concent 32, Red Cell Distribution Width 16.1H, Platelet Count 322, Mean Platelet Volume 10.0, Neutrophils (%) (Auto) 56, Lymphocytes (%) (Auto) 33, Monocytes (%) (Auto) 6, Eosinophils (%) (Auto) 5, Basophils (%) (Auto) 1, Neutrophils # (Auto) 2.5, Lymphocytes # (Auto) 1.5, Monocytes # (Auto) 0.3, Eosinophils # (Auto) 0.2, Basophils # (Auto) 0.0, Magnesium Level 1.6 02/09/20 05:10: White Blood Count 4.8, Red Blood Count 3.81L, Hemoglobin 10.6L, Hematocrit 33L, Mean Corpuscular Volume 87, Mean Corpuscular Hemoglobin 28, Mean Corpuscular Hemoglobin Concent 32, Red Cell Distribution Width 16.1H, Platelet Count 319, Mean Platelet Volume 10.2, Sodium Level 139, Potassium Level 5.5H, Chloride Level 112H, Carbon Dioxide Level 19L, Anion Gap 8, Blood Urea Nitrogen 21H, Creatinine 1.13, Estimat Glomerular Filtration Rate 49, BUN/Creatinine Ratio 19, Glucose Level 80, Calcium Level 8.4L, Corrected Calcium 9.0, Total Bilirubin 0.1, Aspartate Amino Transf (AST/SGOT) 12, Alanine Aminotransferase (ALT/SGPT) 13, Alkaline Phosphatase 80, Total Protein 6.5, Albumin 3.2 Microbiology 02/05/20 Urine Culture - Final, Complete Escherichia coli 02/05/20 Blood Culture - Preliminary, Resulted Staph, Coag Neg (STAFF ACCOUNTANT) See Comments Assessment/Plan Assessment/Plan (1) Acute renal insufficiency Status: Resolved Assessment & Plan: Improving with IVF, monitor. (2) Hypertension Status: Chronic Assessment & Plan: Resume home meds Qualifiers: Qualified Codes: I10 - Essential (primary) hypertension (3) Methamphetamine abuse Status: Chronic Assessment & Plan: She declines treatment at this time (4) Anemia Status: Chronic Assessment & Plan: Stable (5) UTI (urinary tract infection) Status: Acute Assessment & Plan: On ceftriaxone, culture pending Culture with E coli resistant to ampicillin and bactrim, d/c with macrobid. (6) Seizure disorder Status: Chronic Assessment & Plan: Resumed home seizure medications, had one 1 minutes seizure inpatient, was out of Keppra and oxcarbazepine as of 01/05/2020 per pharmacy 02/08 recurrent prolonged seizure last night, electrolytes were okay, increased Keppra dose and check phenobarbital level. Monitor closely, is quite sedated after morning meds. (7) Unresponsive state Status: Resolved Assessment & Plan: CT head negative. Apparently post-ictal, resolved at times, but having periods of somnolence outside of seizure activity as well. (8) Hyperkalemia Status: Acute Assessment & Plan: Stop losartan (9) Discharge planning issues Status: Acute Assessment & Plan: House is not habitable per home health nurse visit. Adult protective services contacted, they are working on NH placement in [place]. Clinical Quality Measures DVT/VTE Risk/Contraindication: Risk Factor Score Per Nursin RFS Level Per Nursing on Admit: 4+=Very High MATTHEW DAVID MD Feb 09, 2020 10:16
--- NOTE | 2020-02-09 10:26 | NUR ---
Tried to talk with pt about continued care plans and was able to recognize me but not able to make conversation or problem solve plan. Received call from Nate Peter, [place] Adult Protection Worker who reports that pt's home is considered not fit for habitation and sister Eileen Stephen who is also DPOA also confirmed that pt's home unfit and pt unable to care for herself. Mr. Green is looking for appropriate placement for pt in [place]. Dr. Roach advised.
[2020-02-09 15:52] VITALS: BP 174/94
--- NOTE | 2020-02-09 16:49 | NUR ---
[place] Adult Protection Services trying to find placement but was denied admission by [facility] as has previous admission there and was very aggressive and problematic so was denied admission. was 'contacting other facilities in [place]. A admission packet was sent to [facility] in [place] and they had possible vacancy on Friday but they have not yet agreed to accept. Pt's sister stated that pt's former caregiver Nevin agreed to return as her caregiver if Naomi would be cooperative and advised [facility] of the former caregiver's willingness to assume in home care but unsure they will proceed. Will continue to work with State Protection in finding appropriate placement. Pt lying in bed throughout the day.
[2020-02-09] MEDS: PRAZOSIN 1 MG CAPSULE (MINIPRESS) NON-FORMULARY PO SCH (19:23)
[2020-02-09 20:00] VITALS: BP 155/90
[2020-02-09] MEDS: cefTRIAXone 1,000 MG/SWFI 10 ML IV PUSH IV SCH ×2 (20:01)
[2020-02-10] VITALS (14 sets, daily range): BP systolic 142–211; BP diastolic 76–158
[2020-02-10] MEDS: NS IV 1000 ML 1,000 ML IV SCH ×2 (04:34→14:57)
[2020-02-10 04:49] LABS: HEMOGLOBIN 10.3 G/DL (11.5-16.0); RED CELL DISTRIBUTION WIDTH 16.2 % (10.0-14.5); WHITE BLOOD COUNT 4.8 10^3/uL (4.3-11.0)
[2020-02-10 05:07] LABS: CALCIUM 8.8 MG/DL (8.5-10.1); CREATININE SERUM 1.32 MG/DL (0.60-1.30); POTASSIUM 4.9 MMOL/L (3.6-5.0)
--- NOTE | 2020-02-10 06:05 | NUR ---
PT HAD A 5 MIN LONG SEIZURE. SEIZURE LIKE ACTIVITY STOP AT 0610. PT WAS PLACED ON HER SIDE, AIRWAY AND HEAD PROTECTED. PCT IN THE ROOM ALSO. 2 MG OF ATIVAN IVP GIVEN. PT RESTING AT THIS TIME. DR. DAVID NOTIFIED.
[2020-02-10] MEDS: LORazepam INJ 2 MG/ML (ATIVAN) VIAL IV PRN ×2 (06:06→07:42)
--- NOTE | 2020-02-10 07:35 | NUR ---
PT HAD A 3 MIN LONG SEIZURE. SEIZURE LIKE ACTIVITY STOP AT 0738. PT WAS PLACED ON HER SIDE, AIRWAY AND HEAD PROTECTED. PCT IN THE ROOM AT THIS TIME. 2 MG OF ATIVAN IVP GIVEN. PT RESTING AT THIS TIME. DR. DAVID NOTIFIED. O2 AT 97%
--- NOTE | 2020-02-10 08:30 | NUR ---
rapid response initiated. [place] comsec manager, this RN and HEALTH INFORMATION DIRECTOR in room at this time Pt post seizure activity. BP elevated 194/105 at this time and PT less responsive 0838 Bp 162/85 manual resp 24 blood sugar 91 0841 Rapid response team here, [place]ington RT, [place] [facility], [place] supervisor mail carriers...CO@ monitor added and 2L O2 initiated 0841 Bp 182/91 automatic temp 36.0, 99% with 2L NC Hr 82 0900Dr fredis here at this time IV hydralazine ordered and Pt to transfer to ICU at this time [id number] Pt transferred to ICU with belongings. Report given to Kae SALDIVAR
[2020-02-10] MEDS ORDERED: hydrALAZINE (APESOLINE) 20 MG/ML VIAL ONE (09:00)
[2020-02-10] MEDS ORDERED: hydrALAZINE (APESOLINE) 20 MG/ML VIAL IV ONE (09:15)
--- NOTE | 2020-02-10 09:26 | Physical Therapy Progress Note ---
Therapy Progress Note Patient transferring to ICU this a.m. due to seizure activity. PT will require new orders when patient is medically stable and able to actively participate with skilled therapy. ANURAG GENTILE PT Feb 10, 2020 09:26
--- NOTE | 2020-02-10 09:57 | Discharge Summary ---
Discharge Summary Hospital Course Problems/Diagnosis: (1) Acute renal insufficiency Status: Acute Assessment & Plan: Improving with IVF, monitor. 02/09 had resolved, but this am Cr up to 1.32 (2) Hypertension Status: Chronic Assessment & Plan: Resumed home meds- amlodipine, carvedilol, metoprolol, hydralazine, prazosin, clonidine and BP had improved to 140s, however on day of transfer she had significant HTN, was unable to take oral meds due to mental status. IV hydralazine given. Prior to med rec being done, pt had been started on admission on losartan, but she had hyperkalemia on 02/08 and that was discontinued. Qualifiers: Qualified Codes: I10 - Essential (primary) hypertension (3) Methamphetamine abuse Status: Chronic Assessment & Plan: She declined referral for treatment after hospitalization during this stay. (4) Anemia Status: Chronic Assessment & Plan: Stable Qualifiers: Qualified Codes: D63.8 - Anemia in other chronic diseases classified elsewhere (5) UTI (urinary tract infection) Status: Acute Assessment & Plan: Culture with E coli resistant to ampicillin and bactrim, completed ceftriaxone x 4 days. (6) Seizure disorder Status: Chronic Assessment & Plan: Resumed home seizure medications, had one 1 minutes seizure inpatient, was out of Keppra and oxcarbazepine as of 01/05/2020 per pharmacy 02/08 recurrent prolonged seizure last night, electrolytes were okay, increased Keppra dose and check phenobarbital level. Monitor closely, is quite sedated after morning meds. 02/09 pt had normal mental status per nursing at times yesterday, but this am had 5 min seizure at around 6 and received 2 mg IV ativan, then another generalized tonic clonic seizure around 8:30 and had another 2 mg IV ativan. After this she was quite sedated and while maintaining airway and oxygen status, she was unresponsive, moving all extremities apparently trying to get out of bed at times, but no meaningful communication so she was transferred to Cardiac Step Down for continuous monitoring and likely need for further IV blood pressure medication and seizure/sedation medications. Repeat CT head ordered. Given recurrent persistent seizures in spite of increasing Keppra and appropriate phenobarbital level discussed with [place] hospitalist and Neurologist who accepted in transfer for further Neuro care. (7) Unresponsive state Status: Resolved Resolution Date/Time: 02/07/20 @ 14:10 Assessment & Plan: CT head negative on admission. Apparently post-ictal, resolved at times, but having periods of somnolence outside of seizure activity as well. (8) Hyperkalemia Status: Acute Assessment & Plan: Stop losartan (9) Discharge planning issues Status: Acute Assessment & Plan: House is not habitable per home health nurse visit. Adult protective services contacted, they are working on NH placement in [place]. Hospital Course Date of Admission: Feb 05, 2020 at 21:48 Admission Diagnosis : Family Physician/Provider: [facility] Date of Discharge: 02/10/20 Discharge Diagnosis: See problem list Hospital Course: See problem list Labs and Pending Lab Test: Laboratory Tests 02/09/20 15:53: Potassium Level 5.4H 02/10/20 04:45: Potassium Level 4.9, White Blood Count 4.8, Red Blood Count 3.68L, Hemoglobin 10.3L, Hematocrit 32L, Mean Corpuscular Volume 87, Mean Corpuscular Hemoglobin 28, Mean Corpuscular Hemoglobin Concent 32, Red Cell Distribution Width 16.2H, Platelet Count 342, Mean Platelet Volume 10.0, Sodium Level 138, Chloride Level 107, Carbon Dioxide Level 22, Anion Gap 9, Blood Urea Nitrogen 20H, Creatinine 1.32H, Estimat Glomerular Filtration Rate 41, BUN/Creatinine Ratio 15, Glucose Level 101, Calcium Level 8.8 02/10/20 08:37: Glucometer 91 Microbiology 02/05/20 Urine Culture - Final, Complete Escherichia coli 02/05/20 Blood Culture - Preliminary, Resulted Staph, Coag Neg (DOCUMENT MANAGEMENT SPECIALIST) See Comments Home Meds Active Macrobid 100 mg Capsule (Nitrofurantoin Monohyd/M-Cryst) 100 Mg Capsule 1 Tab PO BID Levetiracetam 500 Mg Tablet 1,000 Mg PO BID 30 Days LAST FILLED 12-07-2019 #120 TAKES 2 (500MG) TABS TWICE DAILY Oxcarbazepine 300 Mg Tablet 600 Mg PO BID 30 Days LAST FILLED 12-07-2019 #120 TAKES 2 (300MG)TABS TWICE DAILY Reported Hydroxyzine HCl 25 Mg Tablet 25 Mg PO BID PRN Vitamin D2 (Ergocalciferol (Vitamin D2)) 1,250 Mcg Capsule 1,250 Mcg PO WEEK Metoprolol Succinate 100 Mg Tab.er.24h 100 Mg PO DAILY Cyclobenzaprine HCl 10 Mg Tablet 10 Mg PO TID PRN Acid Highway Engineering Teacher (FAMOTIDINE) (Famotidine) 20 Mg Tablet 20 Mg PO BID Coreg (Carvedilol) 25 Mg Tab 25 Mg PO BID LAST FILLED 12-17-2019 #60 Phenobarbital 64.8 Mg Tablet 129.6 Mg PO BID TAKES 2 (64.8MG) TABS TO EQUAL 129.6 Hydralazine HCl 100 Mg Tablet 100 Mg PO TID Loratadine 10 Mg Tablet 10 Mg PO DAILY Clonidine HCl 0.2 Mg Tablet 0.2 Mg PO BID Amlodipine Besylate 10 Mg Tablet 5 Mg PO BID TAKES OF A 10MG TAB TWICE DAILY Prazosin HCl 1 Mg Capsule 1 Mg PO HS Tylenol Extra Strength (Acetaminophen) 500 Mg Tablet 1,000 Mg PO Q6H PRN Assessment/Pt DC Instructions Pt transferred to [facility]. Discharge Physical Examination Allergies: Coded Allergies: nitrous oxide (Verified Allergy, Unknown, 06/08/07) General Appearance: Other (opens eyes sometimes to name, does not respond but does not appear to be in distress) HEENT: Other (Pupils equal and reactive) Respiratory: Lungs Clear, Normal Breath Sounds, No Accessory Muscle Use Cardiovascular: Regular Rate, Rhythm, No Edema, No Murmur Gastrointestinal: Normal Bowel Sounds, Soft, Other (no apparent ttp, central scar with small scab within scar) Skin: Warm/Dry, Other (chronic scabbed wound on medel) Neurologic/Psychiatric: No Facial Droop; Other (moving around in bed, rolls from one side to the other and holds on to side of bed with both right and left hand at times, lifts right and left leg at separate times while appearing to be trying to sit up) Clinical Quality Measures DVT/VTE Risk/Contraindication: Risk Factor Score Per Nursin RFS Level Per Nursing on Admit: 4+=Very High MATTHEW DAVID MD Feb 10, 2020 09:48
--- NOTE | 2020-02-10 10:14 | Diagnostic Imaging Report ---
INDICATION: Altered mental status and seizures. TECHNIQUE: Multiple contiguous axial images were obtained through the brain without the use of intravenous contrast. Auto Exposure Controls were utilized during the CT exam to meet ALARA standards for radiation dose reduction. COMPARISON 02/05/2020. There were no extra-axial fluid collections. No intracranial hemorrhage. No intracranial mass or mass effect. No midline shift. The ventricles are normal in size and position. There are mild low-density changes in the deep white matter compatible with chronic ischemic changes which are similar to the previous study. There is no new abnormality. There are vascular calcifications noted. Calvarial windows are normal. IMPRESSION: No acute abnormality is visualized. The findings are stable compared to 02/05/2020. There are mild chronic changes in the deep white matter. Dictated by: Dictated on workstation # [id number]
--- NOTE | 2020-02-10 10:57 | Occ Therapy Progress Note ---
Therapy Progress Note Pt transferred from 4th to ICU this morning. New orders needed due to higher level care to initiate OT eval/ treatment. NUPUR VILLARREAL OTR Feb 10, 2020 10:57
[2020-02-10] MEDS: hydrALAZINE (APRESOLINE) 25 MG TAB PO SCH ×2 (10:59→13:15)
[2020-02-10] MEDS: cloNIDine 0.2 MG (CATAPRES) TAB PO SCH (11:00)
[2020-02-10] MEDS: CARVEDILOL 12.5 MG (COREG) TABLET PO SCH (11:00)
[2020-02-10] MEDS: LEVETIRACETAM 1,000 MG (KEPPRA) TABLET PO SCH (11:08)
[2020-02-10] MEDS: ENOXAPARIN 40 MG/0.4 ML (LOVENOX) SYR SC SCH (11:09)
[2020-02-10] MEDS: meTOprolol SUCCINATE 100 MG (TOPROL XL) TAB PO SCH (11:09)
[2020-02-10] MEDS: PHENobarbital 64.8 MG (1 GRAIN) TAb PO SCH (11:09)
[2020-02-10] MEDS: amLODIPine 5 MG (NORVASC) TAB PO SCH (11:09)
[2020-02-10] MEDS: OXcarbazepine (TRILEPTAL) 300 MG TAB PO SCH (11:09)
--- NOTE | 2020-02-10 11:22 | NUR ---
This nurse notified about patients elevated blood pressure. Telephone order received to give 5mg lopressor IV now one time.
[2020-02-10] MEDS ORDERED: meTOprolol 5 MG/5 ML (LOPRESSOR) VIAL IV NR (11:23)
--- NOTE | 2020-02-10 14:00 | NUR ---
This nurse notified about patients blood pressure remaining elevated. telephone order received to administer 20mg IV Hydralazine one time now.
[2020-02-10] MEDS ORDERED: hydrALAZINE (APESOLINE) 20 MG/ML VIAL IV STA (14:28)
--- NOTE | 2020-02-10 16:40 | NUR ---
1551 this nurse spoke with EMS shift captain, he approved and stated to go ahead and call dispatch [phone] this nurse called dispatch [phone] this nurse called report to Blanca RN at [facility] in the ICU where patient will be transferring to room 261. Call back number given to blanca in case she has further questions.
--- NOTE | 2020-02-10 17:00 | NUR ---
This nurse spoke with Eileen patients sister, who is her DPOA, on the phone, she gave verbal consent to transfer patient to [facility] in [place] due to uncontrolled seizure activity. YARIEL Roldan heard Eileen's consent as well. Consent obtained from Eileen due to patients altered mental status.
--- NOTE | 2020-02-10 17:52 | NUR ---
Patient leaving via stretcher with EMS.
[2020-02-10] MEDS ORDERED: FAMOTIDINE 20 MG (PEPCID) TABLET PO SCH (21:00)
== END 2020-02-10 17:52 | disposition short-term general hospital (02) | DRG 101 ==
LOC: EDUNIT# 21:45 → ER 21:47 → 4TH 21:48 → ICU 02-10 09:20
PROVIDERS: ADMIT Internal Medicine; ATTEND Family Medicine
DX: G40.909 Epilepsy, unspecified, not intractable, without status epilepticus (principal); R40.0 Somnolence; N17.9 Acute kidney failure, unspecified; I42.9 Cardiomyopathy, unspecified; N39.0 Urinary tract infection, site not specified; I38 Endocarditis, valve unspecified; F15.10 Other stimulant abuse, uncomplicated; K75.9 Inflammatory liver disease, unspecified; Z66 Do not resuscitate; E86.0 Dehydration; F31.9 Bipolar disorder, unspecified; F17.210 Nicotine dependence, cigarettes, uncomplicated; J44.9 Chronic obstructive pulmonary disease, unspecified; I25.10 Atherosclerotic heart disease of native coronary artery without angina pectoris; F41.9 Anxiety disorder, unspecified; I25.2 Old myocardial infarction; I10 Essential (primary) hypertension; I73.9 Peripheral vascular disease, unspecified; Z91.14 Patient's other noncompliance with medication regimen; Z86.73 Personal history of transient ischemic attack (TIA), and cerebral infarction without residual deficits; Z87.820 Personal history of traumatic brain injury; Z90.89 Acquired absence of other organs; Z90.710 Acquired absence of both cervix and uterus; Z90.722 Acquired absence of ovaries, bilateral; Z90.49 Acquired absence of other specified parts of digestive tract
CPT/HCPCS: 36415; 51702; 70450; 80048; 80053; 80184; 80306; 81000; 82805; 82962; 83605; 83735; 84132; 85025; 85027; 87040; 87077; 87088; 87186; 94760; 96361; 96365; 96375

== ENCOUNTER 2020-05-02 12:32 | Emergency (ER) | payer MEDICAID ==
[~2020-05-02] VITALS: Ht 170 cm; Wt 90.0 kg
[~2020-05-02 12:32] MED LIST changes: +ERGO50006 PO; +LEVE500T6 PO; +OXCA300T18 PO
[2020-05-02] MEDS ORDERED: LORazepam INJ 2 MG/ML (ATIVAN) VIAL ONE (12:41)
[2020-05-02] MEDS ORDERED: LEVETIRACETAM INJECTION 500 MG in NS (IVPB) 100 ML IV STA (12:56)
[2020-05-02] MEDS ORDERED: LORazepam INJ 2 MG/ML (ATIVAN) VIAL IVP ONE (13:00)
[2020-05-02 13:03] LABS: BASOPHILS % (AUTO) 1 % (0-10); EOSINOPHILS # (AUTO) 0.3 10^3/uL (0.0-0.3); EOSINOPHILS % (AUTO) 5 % (0-10); HEMATOCRIT 38 % (35-52); HEMOGLOBIN 12.2 G/DL (11.5-16.0); LYMPHOCYTES # (AUTO) 2.2 X 10^3 (1.0-4.0); LYMPHOCYTES % (AUTO) 41 % (12-44); MEAN CORPUSCULAR HEMOGLOBIN 28 PG (25-34); MEAN CORPUSCULAR HGB CONC 32 G/DL (32-36); MEAN CORPUSCULAR VOLUME 87 FL (80-99); MEAN PLATELET VOLUME 10.1 FL (7.4-10.4); MONOCYTES # (AUTO) 0.4 X 10^3 (0.0-1.0); MONOCYTES % (AUTO) 8 % (0-12); NEUTROPHILS # (AUTO) 2.4 X 10^3 (1.8-7.8); NEUTROPHILS % (AUTO) 46 % (42-75); PLATELET COUNT 364 10^3/uL (130-400); RED CELL DISTRIBUTION WIDTH 15.2 % (10.0-14.5); WHITE BLOOD COUNT 5.3 10^3/uL (4.3-11.0)
[2020-05-02] MEDS ORDERED: LACTATED RINGERS 1,000 ML IV STA (13:03)
[2020-05-02 13:08] LABS: ALBUMIN 4.1 GM/DL (3.2-4.5)
[2020-05-02 13:09] LABS: POTASSIUM 5.5 MMOL/L (3.6-5.0)
[2020-05-02 13:10] LABS: CALCIUM 8.8 MG/DL (8.5-10.1)
[2020-05-02 13:11] LABS: TOTAL PROTEIN 7.6 GM/DL (6.4-8.2)
[2020-05-02 13:13] LABS: BILIRUBIN,TOTAL 0.1 MG/DL (0.1-1.0)
[2020-05-02 13:15] LABS: CREATININE SERUM 1.37 MG/DL (0.60-1.30)
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
[2020-05-02 13:37] LABS: ERYTHROCYTE SEDIMENTATION RATE 19 MM/HR (0-30)
--- NOTE | 2020-05-02 13:48 | Diagnostic Imaging Report ---
INDICATION: Seizure. COMPARISON: 01/08/2020. EXAMINATION: Portable chest. FINDINGS: The lungs are well-aerated and clear. The heart is not enlarged. No pulmonary edema. No hilar adenopathy. No pneumothorax or pleural effusion. There is a left central line present in good position over the superior vena cava. IMPRESSION: The central line is in good position with an otherwise normal chest. Dictated by: Dictated on workstation # [id number]
[2020-05-02 14:45] VITALS: BP 149/71
--- OUTSIDE RECORDS SUMMARY | 2020-05-02 14:52 | XMS REPORT | Clinical Summary ---
Author Author [facility] Organization [facility] Address Unknown Phone Unavailable Care Team Providers Care Compliance Director Name Role Phone PauloAngelaSandervika LANGE Unavailable Anita Lopez MD Unavailable Joshua Lynch MD Unavailable Sherice Laurent DO PCP Armin Ventura MD Unavailable Flory Kim RN Unavailable Unavailable Zaynab Zhang MD Unavailable Unavailable Source Comments Some departments are not documenting in the electronic medical record. If you d o not see the information that you expected, contact Release of Information in [email or web address] Information Management department at [phone] for further assistan ce in locating additional records.[facility] Allergies Comments Active Allergy Reactions [...] Comments Vital Sign 110/80 11/11/2014 1:07 PM [facility] Blood Pressure 72 11/11/2014 1:07 PM [facility] Pulse 36.5 C (97.7 F) 11/11/2014 1:07 PM [facility] Temperature 16 11/11/2014 1:07 PM [facility] Respiratory Rate 94% 09/21/2014 7:45 AM [facility] Oxygen Saturation - - Inhaled Oxygen Concentration 82.1 kg (181 lb) 11/11/2014 1:07 PM [facility] Weight 160 cm (5' 3") 11/11/2014 1:07 PM [facility] Height 32.06 11/11/2014 1:07 PM [facility] Body Mass Index Plan of Treatment Health [...] 06/14/2014 9:09 AM CDT Advance Directives Patient Nuclear Medicine Technologist Explanation Type Date Recorded Advance 06/11/2014 9:42 [...]
--- OUTSIDE RECORDS SUMMARY | 2020-05-02 14:54 | XMS REPORT ---
Author Author Michelle LANGE Organization [facility] Address [address] [place] [address] Care Team Providers Care Radioisotope Technician Name Role Phone TRACEE LANGE Unavailable PROBLEMS Type Condition ICD9-CM Code [id number] Code Onset Dates Condition S tatus SNOMED Code Problem Lumbar neuritis M54.16 Active 1281 72011 Problem Thoracic neuritis M54.14 Active 58 368942 Problem Hypertension, benign I10 Active 97687872 Problem Cardiomyopathy I42.9 Active 62763 001 Problem Epileptic seizure, generalized G40.309 Active 90805142 Problem Excessive daytime sleepiness G47.19 A ctive [id number] Problem GERD (gastroesophageal reflux disease) K21.9 Active 329594438 Problem Panlobular emphysema J43.1 Active 8130626 Problem Intracranial injury, without loss of consciousness, subsequent encounter S06.9X0D Active 966038560 Problem Ventricular arrhythmia I49.9 Active 21202480 Problem Mood disorder F39 Active 503986 05 Problem Seasonal allergic rhinitis, unspecified trigger J3 0.2 Active 127811798 Problem Observed sleep apnea G47.30 Active 15444497 ALLERGIES No Information ENCOUNTERS Encounter Location Date Diagnosis [facility] [address] [facility] [id number] [address] [place] [address] Apr, [facility] [address] [facility] [id number] [address] [place] [phone] Apr, [facility] [address] [facility] [id number] [address] [place] [phone] Apr, [facility] [address] [facility] [id number] [address] [place] [id number] Mar, GERD (gastroesophageal reflu x disease) K21.9 [facility] [address] [facility] [id number] [address] [place] [address] Mar, [facility] [address] [id number] [address] [place] [address] Mar, [facility] [address] [id number] [address] [place] [address] Mar, [facility] [address] [facility] [id number] [address] [place] [phone] Mar, [facility] [address] [id number] [address] [place] [address] Mar, [facility] [address] [id number] [address] [place] [address] Mar, [facility] [address] [facility] [id number] [address] [place] [address] February, Epileptic seizure, generaliz ed G40.309 and Hypertension, benign I10 [facility] [address] [facility] [id number] [address] [place] [address] February, Epileptic seizure, generaliz ed G40.309 [facility] [address] [facility] [id number] [address] [place] [address] February, [facility] [address] [facility] [id number] [address] [place] [address] Jan, [facility] [address] [facility] [id number] [address] [place] [phone] Jan, [facility] [address] [facility] [id number] [address] [place] [address] Jan, [facility] [address] [facility] [id number] [address] [place] [address] Jan, Panlobular emphysema J43.1 [facility] [address] [facility] [id number] [address] [place] [address] Dec, Mood disorder F39 [facility] [address] [facility] [id number] [address] [place] [address] Nov, [facility] [address] [facility] [id number] [address] [place] [address] Oct, Cardiomyopathy I42.9 ; Hyper tension, benign I10 and Mood disorder F39 [facility] [address] [facility] [id number] [address] [place] [address] Oct, Epileptic seizure, generaliz ed G40.309 [facility] [address] [facility] [id number] [address] [place] [id number] 16 Oct, 2019 Panlob[address]1 [facility] [address] [facility] [id number] [address] [place] [phone] Oct, [facility] [address] [facility] [id number] [address] [place] [address] Oct, Panlobular emphysema J43.1 [facility] [address] [facility] [id number] [address] [place] [address] Sep, Unspecified convulsions R56. 9 [facility] [address] [facility] [id number] [address] [place] [phone] Aug, Seizures R56.9 [facility] [address] [facility] [id number] [address] [place] [address] Aug, [facility] [address] [facility] [id number] [address] [place] [address] Aug, Hypertension, benign I10 [facility] [address] [facility] [id number] [address] [place] [id number] Aug, [facility] [address] [facility] [id number] [address] [place] [address] Aug, [facility] [address] [facility] [id number] [address] [place] [address] Aug, [facility] [address] [facility] [id number] [address] [place] [address] Aug, Panlobular emphysema J43.1 ; Observed sleep apnea G47.30 and Excessive daytime sleepiness G47.19 [facility] [address] [id number] [address] [place] [address] Aug, [facility] [address] [id number] [address] [place] [address] Jun, Seizures R56.9 [facility] [address] [id number] [address] [place] [address] Jun, [facility] [address] [id number] [address] [place] [address] Jun, [facility] [address] [id number] [address] [place] [address] Jun, [facility] [address] [id number] [address] [place] [phone] May, Acute right-sided low back p ain without sciatica M54.5 [facility] [address] [facility] [id number] [address] [place] [address] May, Acute right-sided low back p ain without sciatica M54.5 [facility] [address] [id number] [address] [place] [address] Apr, High risk medication use Z79 .899 ; Acute septic pulmonary embolism without acute cor pulmonale I26.90 and Cellulitis of leg without foot L03.119 [facility] [address] [facility] [id number] [address] [place] [address] Jan, [facility] [address] [facility] [id number] [address] [place] [address] Jan, Seizures R56.9 [facility] [address] [facility] [id number] [address] [place] [address] Dec, Seizures R56.9 [facility] [address] [facility] [id number] [address] [place] [address] Nov, Dysuria R30.0 and Urinary tr act infection without hematuria, site unspecified N39.0 [facility] [address] [facility] [id number] [address] [place] [address] Nov, [facility] [address] [facility] [id number] [address] [place] [address] Nov, Seizures R56.9 [facility] [address] [facility] [id number] [address] [place] [address] Sep, Seizures R56.9 [facility] [address] [facility] [id number] [address] [place] [address] Sep, Seasonal allergic rhinitis, unspecified trigger J30.2 [facility] [address] [facility] [id number] [address] [place] [address] Aug, Neck pain on left side M54.2 ; Mood disorder F39 and GERD (gastroesophageal reflux disease) K21.9 [facility] [address] [place] [id number] [address] [place] [id number] Aug, Seizures R56.9 [facility] [address] [facility] [id number] [address] [place] [address] Aug, Mood disorder F39 ; Neck dionicio n on left side M54.2 and Hypertension, benign I10 [facility] [address] [place] [id number] [address] [place] [phone] Aug, [facility] [address] [place] [id number] [address] [place] [id number] Aug, [facility] [address] [facility] [id number] [address] [place] [address] Jul, [facility] [address] [facility] [id number] [address] [place] [id number] Jul, Hypertension, benign I10 [facility] [address] [facility] [id number] [address] [place] [address] Jul, [facility] [address] [facility] [id number] [address] [place] [address] Jul, Thoracic neuritis M54.14 ; P ain of left leg M79.605 and Pain in right leg M79.604 [facility] [address] [id number] [address] [place] [address] Jun, Seizures R56.9 [facility] [address] [id number] [address] [place] [address] May, [facility] [address] [id number] [address] [place] [id number] May, [facility] [address] [id number] [address] [place] [phone] May, [facility] [address] [id number] [address] [place] [phone] May, Seizures R56.9 [facility] [address] [id number] [address] [place] [address] May, [facility] [address] [facility] [id number] [address] [place] [address] May, Delirium R41.0 [facility] [address] [id number] [address] [place] [address] Apr, [facility] [address] [facility] [id number] [address] [place] [address] February, Ventricular arrhythmia I49.9 [facility] [address] [facility] [id number] [address] [place] [address] February, [facility] [address] [facility] [id number] [address] [place] [address] Dec, Thoracic neuritis M54.14 ; L umbar neuritis M54.16 and Epileptic seizure, generalized G40.309 [facility] [address] [facility] [id number] [address] [place] [address] Sep, Epileptic seizure, generaliz ed G40.309 and Lumbar neuritis M54.16 [facility] [address] [facility] [id number] [address] [place] [address] Aug, Thoracic neuritis M54.14 and Lumbar neuritis M54.16 [place] [address] [id number] Jun, [place] [address] [address] Jun, Abscess of leg, left L02.416 [place] [address] [address] May, Lumbar neuritis M54.16 ; Tho racic neuritis M54.14 ; Intracranial injury, without loss of consciousness, subsequent encounter S06.9X0D and Cardiomyopathy I42.9 [place] [address] [address] Apr, Lumbar neuritis M54.16 [place] [address] [address] Apr, [place] [address] [address] Apr, Elevated liver enzymes R74.8 and Renal insufficiency N28.9 [place] [address] [address] Apr, Lumbar neuritis M54.16 ; Tho racic neuritis M54.14 ; Hypertension, benign I10 ; Cardiomyopathy I42.9 and Epileptic seizure, generalized G40.309 [place] [address] [address] Mar, [place] [address] [address] February, [place] [address] [address] February, Lumbar neuritis M54.16 ; Tho racic neuritis M54.14 ; Hypertension, benign I10 ; Cardiomyopathy I42.9 and Epileptic seizure, generalized G40.309 [place] [address] [address] Dec, [facility] [address] [address] Sep, Epigastric mass R19.06 [facility] [address] [address] Sep, Epigastric mass R19.06 [place] [address] [address] Sep, [facility] [address] [address] Sep, Epigastric mass R19.06 [place] [address] [address] Sep, Epigastric mass R19.06 and L roque mass R91.8 [facility] [address] [phone] Jul, Shortness of breath R06.02 ; Dysuria R30.0 and Acute bronchitis, unspecified organism J20.9 [place] [address] [address] Jul, [place] [address] [address] Jun, Seizures R56.9 ; Thoracic ne uritis M54.14 ; Lumbar neuritis M54.16 and GERD (gastroesophageal reflux disease) K21.9 [facility] [address] [address] Jan, [place] [address] [address] Sep, [place] [address] [address] Sep, Intracranial injury, without loss of consciousness, subsequent encounter S06.9X0D ; Cardiomyopathy I42.9 ; GERD (gastroesophageal reflux disease) K21.9 ; Hypertension, benign I10 ; Thoracic neuritis M54.14 and Lumbar [address]itis M54.16 [facility] [address] [facility] [id number] [address] [place] [address] Mar, [facility] [address] [facility] [id number] [address] [place] [address] Mar, Coronary atherosclerosis of unspecified type of vessel, beaver or graft 414.00 ; Unspecified essential hypertension 401.9 ; Thoracic or lumbosacral neuritis or radiculitis, unspecified 724.4 and Other convulsions 780.39 [facility] [address] [facility] [id number] [address] [place] [address] Jan, [facility] [address] [facility] [id number] [address] [place] [phone] Jan, [facility] [address] [facility] [id number] [address] [place] [address] Nov, [facility] [address] [facility] [id number] [address] [place] [phone] Nov, [facility] [address] [facility] [id number] [address] [place] [address] Nov, [facility] [address] [facility] [id number] [address] [place] [address] Nov, [facility] [address] [facility] [id number] [address] [place] [address] Nov, [facility] [address] [facility] [id number] [address] [place] [address] Nov, [facility] [address] [facility] [id number] [address] [place] [address] Nov, [facility] [address] [facility] [id number] [address] [place] [phone] Nov, [facility] [address] [facility] [id number] [address] [place] [address] Nov, [facility] [address] [id number] [address] [place] [address], [place] [address] Nov, [facility] [address] [id number] [address] [place] [address], [place] [address] Sep, [facility] [address] [id number] [address] [place] [address], [place] [address] Sep, [facility] [address] [id number] [address] [place] [address], [place] [address] Aug, [facility] [address] [id number] [address] [place] [address], [place] [address] Aug, [facility] [address] [id number] [address] [place] [address], [place] [address] Aug, [facility] [address] [id number] [address] [place] [address], [place] [address] Aug, [facility] [address] [id number] [address] [place] [address], [place] [address] Jul, [facility] [address] [id number] [address] [place] [address], [place] [address] Jul, [facility] [address] [id number] [address] [place] [address], [place] [address] Jul, [facility] [address] [id number] [address] [place] [address], [place] [address] Jul, [facility] [address] [id number] [address] [place] [address], [place] [address] Jun, [facility] [address] [id number] [address] [place] [address], [place] [address] Jun, [facility] [address] [id number] [address] [place] [address], [place] [address] Jun, [facility] [address] [id number] [address] [place] [address], [place] [address] May, [facility] [address] [id number] [address] [place] [address], [place] [address] May, [facility] [address] [id number] [facility] [place] [address] May, [facility] [address] [id number] [address] [place] [address], [place] [address] May, [facility] [address] [id number] [address] [place] [address], [place] [address] May, [facility] [address] [id number] [address] [place] [address], [place] [address] May, [facility] [address] [id number] [address] [place] [address], [place] [address] May, [facility] [address] [id number] [address] [place] [address], [place] [address] May, [facility] [address] [id number] [address] [place] [address], [place] [address] February, [facility] [address] [id number] [address] [place] [address], [place] [address] February, [facility] [address] [id number] [address] [place] [address], [place] [address] Jan, [facility] [address] [id number] [address] [place] [address], [place] [address] Jan, [facility] [address] [id number] [address] [place] [address], [place] [address] Jan, [facility] [address] [id number] [address] [place] [address], [place] [address] Jan, [facility] [address] [id number] [address] [place] [address], [place] [address] Nov, [facility] [address] [id number] [address] [place] [address], [place] [address] Nov, [facility] [address] [id number] [address] [place] [address], [place] [address] Nov, [facility] [address] [id number] [address] [place] [address], [place] [address] 18 Nov, 2013 [facility] [address] [id number] [address] [place] [address], [place] [address] Sep, [facility] [address] [id number] [address] [place] [address], [place] [address] Sep, [facility] [address] [id number] [address] [place] [address], [place] [address] Sep, [facility] [address] [id number] [address] [place] [address], [place] [address] Sep, [facility] [address] [id number] [address] [place] [address], [place] [address] Sep, [facility] [address] [id number] [address] [place] [address], [place] [address] Sep, [facility] [address] [id number] [address] [place] [address], [place] [address] Jul, [facility] [address] [id number] [address] [place] [address], [place] [address] Jul, [facility] [address] [id number] [address] [place] [address], [place] [address] 30 Jun, 2013 [facility] [address] [id number] [address] [place] [address], [place] [address] Jun, [facility] [address] [id number] [address] [place] [address], [place] [address] 17 Jun, 2013 [facility] [address] [id number] [address] [place] [address], [place] [address] May, [facility] [address] [place] [id number] May, [facility] [address] [id number] [address] [place] [address], [place] [address] May, [facility] [address] [id number] [address] [place] [address], [place] [address] May, [facility] [address] [id number] [address] [place] [address], [place] [address] May, [facility] [address] [id number] [address] [place] [address], [place] [address] May, [facility] [address] [id number] [address] [place] [address], [place] [address] May, [facility] [address] [id number] [address] [place] [address], [place] [address] Apr, [facility] [address] [id number] [address] [place] [address], [place] [address] Apr, [facility] [address] [id number] [address] [place] [address], [place] [address] Apr, [facility] [address] [id number] [address] [place] [address], [place] [address] Apr, [facility] [address] [id number] [address] [place] [address], [place] [address] Mar, [facility] [address] [id number] [address] [place] [address], [place] [address] February, [facility] [address] [id number] [address] [place] [address], [place] [address] Jan, [facility] [address] [id number] [address] [place] [address], [place] [address] Dec, [facility] [address] [id number] [address] [place] [address], [place] [address] Dec, [facility] [address] [id number] [address] [place] [address], [place] [address] Dec, [facility] [address] [id number] [address] [place] [address], [place] [address] Nov, [facility] [address] [id number] [address] [place] [address], [place] [address] Nov, [facility] [address] [id number] [address] [place] [address] [address] Nov, [facility] [address] [id number] [address] [place] [address], [place] [address] Oct, [facility] [address] [id number] [address] [place] [address], [place] [address] Oct, [facility] [address] [id number] [address] [place] [address], [place] [address] Sep, [facility] [address] [id number] [address] [place] [address], [place] [address] Sep, [facility] [address] [id number] [address] [place] [address], [place] [address] Sep, [facility] [address] [id number] [address] [place] [address], [place] [address] Sep, [facility] [address] [id number] [address] [place] [address], [place] [address] Sep, [facility] [address] [id number] [address] [place] [address], [place] [address] Sep, [facility] [address] [id number] [address] [place] [address], [place] [address] Aug, [facility] [address] [id number] [address] [place] [address], [place] [address] Aug, [facility] [address] [id number] [address] [place] [address], [place] [address] Aug, [facility] [address] [id number] [address] [place] [address], [place] [address] Aug, [facility] [address] [id number] [address] [place] [address], [place] [address] Aug, [facility] [address] [id number] [address] [place] [address], [place] [address] Aug, [facility] [address] [id number] [address] [place] [address], [place] [address] Aug, [facility] [address] [id number] [address] [place] [address], [place] [address] Aug, [facility] [address] [id number] [address] [place] [address], [place] [address] Aug, [facility] [address] [id number] [address] [place] [address], [place] [address] Aug, [facility] [address] [id number] [address] [place] [address], [place] [address] Jul, [facility] [address] [id number] [address] [place] [address], [place] [address] Jul, [facility] [address] [id number] [address] [place] [address], [place] [address] Jul, [facility] [address] [id number] [address] [place] [address], [place] [address] Jul, [facility] [address] [id number] [address] [place] [address], [place] [address] Jul, [facility] [address] [id number] [address] [place] [address], [place] [address] Jul, [facility] [address] [id number] [address] [place] [address], [place] [address] Jul, [facility] [address] [id number] [address] [place] [address], [place] [address] Jul, [facility] [address] [id number] [address] [place] [address], [place] [address] 18 Jul, 2012 [facility] [address] [id number] [address] [place] [address], [place] [address] Jul, [facility] [address] [id number] [address] [place] [address], [place] [address] Jul, [facility] [address] [id number] [address] [place] [address], [place] [address] Jul, [facility] [address] [id number] [address] [place] [address], [place] [address] Jul, [facility] [address] [id number] [address] [place] [address], [place] [address] Jul, [facility] [address] [id number] [address] [place] [address], [place] [address] Jul, [facility] [address] [id number] [address] [place] [address], [place] [address] Jun, [facility] [address] [id number] [address] [place] [address], [place] [address] 24 Jun, 2012 [facility] [address] [id number] [address] [place] [address], [place] [address] Jun, [facility] [address] [id number] [address] [place] [address], [place] [address] May, [facility] [address] [id number] [address] [place] [address], [place] [address] May, [facility] [address] [id number] [address] [place] [address], [place] [address] Mar, [facility] [address] [id number] [address] [place] [address], [place] [address] Mar, [facility] [address] [id number] [address] [place] [address], [place] [address] February, [facility] [address] [id number] [address] [place] [address], [place] [address] February, [facility] [address] [id number] [address] [place] [address], [place] [address] Nov, [facility] [address] [id number] [address] [place] [address], [place] [address] Oct, [facility] [address] [id number] [address] [place] [address], [place] [address] Oct, [facility] [address] [id number] [address] [place] [address], [place] [address] Oct, [facility] [address] [id number] [address] [place] [address] Aug, [facility] [address] [id number] [address] [place] [address] Jul, [facility] [address] [id number] [address] [place] [address] Sep, [facility] [address] [id number] [address] [place] [address] Aug, [facility] [address] [id number] [address] [place] [address] Jul, [facility] [address] [id number] [address] [place] [address] Apr, [facility] [address] [id number] [address] [place] [address] February, [facility] [address] [id number] [address] [place] [address] Sep, [facility] [address] [id number] [address] [place] [address] Sep, [facility] [address] [id number] [address] [place] [address] Sep, [facility] [address] [id number] [address] [place] [address] Apr, [facility] [address] [id number] [address] [place] [address] Mar, [facility] [address] [id number] [address] [place] [address] February, [facility] [address] [id number] [address] [place] [address] Jan, 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
--- OUTSIDE RECORDS SUMMARY | 2020-05-02 14:54 | XMS REPORT ---
Author Author Michelle PRECIADO Organization [facility] Address [address] [place] [address] Care Team Providers Care Digital Editor Name Role Phone KRANTHI PRECIADO Unavailable PROBLEMS Type Condition ICD9-CM Code [id number] Code Onset Dates Condition S tatus SNOMED Code Problem Lumbar neuritis M54.16 Active 1281 43457 Problem Thoracic neuritis M54.14 Active 58 550350 Problem Hypertension, benign I10 Active 67917211 Problem Cardiomyopathy I42.9 Active 97099 001 Problem Epileptic seizure, generalized G40.309 Active 05949559 Problem Excessive daytime sleepiness G47.19 A ctive 717600545141 Problem GERD (gastroesophageal reflux disease) K21.9 Active 062422048 Problem Panlobular emphysema J43.1 Active 7214748 Problem Intracranial injury, without loss of consciousness, subsequent encounter S06.9X0D Active 707908819 Problem Ventricular arrhythmia I49.9 Active 63868563 Problem Mood disorder F39 Active 232388 05 Problem Seasonal allergic rhinitis, unspecified trigger J3 0.2 Active 089283216 Problem Observed sleep apnea G47.30 Active 41996864 ALLERGIES No Information ENCOUNTERS Encounter Location Date Diagnosis [place] [address] [place] [address] Mar, [facility] [address] [place] [address] February, Epileptic seizure, generaliz ed G40.309 and Hypertension, benign I10 [place] [address] [place] [id number] [address] [place] [address] February, Epileptic seizure, generaliz ed G40.309 [place] [id number] [place] [id number] [address] [place] [address] February, [place] [address] [place] [id number] [address] [place] [address] Jan, [facility] [address] [facility] [id number] [address] [place] [address] Jan, [facility] [address] [facility] [id number] [address] [place] [address] Jan, [facility] [address] [facility] [id number] [address] [place] [address] Jan, Panlobular emphysema J43.1 [facility] [address] [facility] [id number] [address] [place] [address] Dec, Mood disorder F39 [facility] [address] [facility] [id number] [address] [place] [address] Nov, [facility] [address] [facility] [id number] [address] [place] [address] Oct, Cardiomyopathy I42.9 ; Hyper tension, benign I10 and Mood disorder F39 [facility] [address] [facility] [id number] [address] [place] [address] Oct, Epileptic seizure, generaliz ed G40.309 [facility] [address] [facility] [id number] [address] [place] [address] Oct, Panlobular emphysema J43.1 [facility] [address] [facility] [id number] [address] [place] [address] Oct, [facility] [address] [facility] [id number] [address] [place] [address] Oct, Panlobular emphysema J43.1 [facility] [address] [facility] [id number] [address] [place] [address] Sep, Unspecified convulsions R56. 9 [facility] [address] [facility] [id number] [address] [place] [address] Aug, Seizures R56.9 [facility] [address] [facility] [id number] [address] [place] [address] Aug, [facility] [address] [facility] [id number] [address] [place] [address] Aug, Hypertension, benign I10 [facility] [address] [facility] [id number] [address] [place] [address] Aug, [facility] [address] [facility] [id number] [address] [place] [address] Aug, [facility] [address] [facility] [id number] [address] [place] [address] Aug, [facility] [address] [facility] [id number] [address] [place] [address] Aug, Panlobular emphysema J43.1 ; Observed sleep apnea G47.30 and Excessive daytime sleepiness G47.19 [facility] [address] [facility] [id number] [address] [place] [address] Aug, [facility] [address] [facility] [id number] [address] [place] [address] Jun, Seizures R56.9 [facility] [address] [facility] [id number] [address] [place] [address] Jun, [facility] [address] [facility] [id number] [address] [place] [address] Jun, [facility] [address] [facility] [id number] [address] [place] [address] Jun, [facility] [address] [facility] [id number] [address] [place] [address] May, Acute right-sided low back p ain without sciatica M54.5 [facility] [address] [facility] [id number] [address] [place] [address] May, Acute right-sided low back p ain without sciatica M54.5 [facility] [address] [facility] [id number] [address] [place] [address] 24 Kj, 2019 High risk medication use Z79 .899 ; Acute septic pulmonary embolism without acute cor pulmonale I26.90 and Cellulitis of leg without foot L03.119 [facility] [address] [facility] [id number] [address] [place] [address] Jan, [facility] [address] [facility] [id number] [address] [place] [address] Jan, Seizures R56.9 [facility] [address] [facility] [id number] [address] [place] [address] Dec, Seizures R56.9 [facility] [address] [facility] [id number] [address] [place] [address] Nov, Dysuria R30.0 and Urinary tr act infection without hematuria, site unspecified N39.0 [facility] [address] [place] [id number] [address] [place] [address] Nov, [facility] [address] [facility] [id number] [address] [place] [address] Nov, Seizures R56.9 [facility] [address] [facility] [id number] [address] [place] [address] Sep, Seizures R56.9 [facility] [address] [place] [id number] [address] [place] [address] Sep, Seasonal allergic rhinitis, unspecified trigger J30.2 [facility] [address] [place] [id number] [address] [place] [address] Aug, Neck pain on left side M54.2 ; Mood disorder F39 and GERD (gastroesophageal reflux disease) K21.9 [facility] [address] [facility] [id number] [address] [place] [address] Aug, Seizures R56.9 [facility] [address] [facility] [id number] [address] [place] [address] Aug, Mood disorder F39 ; Neck dionicio n on left side M54.2 and Hypertension, benign I10 [facility] [address] [id number] [address] [place] [address] Aug, [facility] [address] [id number] [address] [place] [address] Aug, [facility] [address] [id number] [address] [place] [address] Jul, [facility] [address] [id number] [address] [place] [address] Jul, Hypertension, benign I10 [facility] [address] [id number] [address] [place] [address] Jul, [facility] [address] [id number] [address] [place] [address] Jul, Thoracic neuritis M54.14 ; P ain of left leg M79.605 and Pain in right leg M79.604 [facility] [address] [id number] [address] [place] [address] Jun, Seizures R56.9 [facility] [address] [id number] [address] [place] [address] May, [facility] [address] [id number] [address] [place] [address] May, [facility] [address] [id number] [address] [place] [address] May, [facility] [address] [id number] [address] [place] [address] May, Seizures R56.9 [facility] [address] [id number] [address] [place] [address] May, [facility] [address] [id number] [address] [place] [address] May, Delirium R41.0 [facility] [address] [id number] [address] [place] [address] Apr, [facility] [address] [address] February, Ventricular arrhythmia I49.9 [place] [address] [address] February, [place] [address] [address] Dec, Thoracic neuritis M54.14 ; L umbar neuritis M54.16 and Epileptic seizure, generalized G40.309 [place] [address] [address] Sep, Epileptic seizure, generaliz ed G40.309 and Lumbar neuritis M54.16 [place] [address] [address] Aug, Thoracic neuritis M54.14 and Lumbar neuritis M54.16 [place] [address] [address] Jun, [place] [address] [address] Jun, Abscess of leg, left L02.416 [place] [address] [address] May, Lumbar neuritis M54.16 ; Tho racic neuritis M54.14 ; Intracranial injury, without loss of consciousness, subsequent encounter S06.9X0D and Cardiomyopathy I42.9 [place] [address] [address] Apr, Lumbar neuritis M54.16 [place] [address] [address] Apr, [place] [address] [address] Apr, Elevated liver enzymes R74.8 and Renal insufficiency N28.9 [place] [address] [address] Apr, Lumbar neuritis M54.16 ; Tho racic neuritis M54.14 ; Hypertension, benign I10 ; Cardiomyopathy I42.9 and Epileptic seizure, generalized G40.309 [facility] [address] [place] [id number] Mar, [facility] [address] [address] February, [place] [address] [address] February, Lumbar neuritis M54.16 ; Tho racic neuritis M54.14 ; Hypertension, benign I10 ; Cardiomyopathy I42.9 and Epileptic seizure, generalized G40.309 [facility] [address] [address] Dec, [place] [address] [address] Sep, Epigastric mass R19.06 [place] [address] [address] Sep, Epigastric mass R19.06 [place] [address] [address] Sep, [facility] [address] [address] Sep, Epigastric mass R19.06 [place] [address] [address] Sep, Epigastric mass R19.06 and L roque mass R91.8 [facility] [address] [address] Jul, Shortness of breath R06.02 ; Dysuria R30.0 and Acute bronchitis, unspecified organism J20.9 [place] [address] [address] Jul, [facility] [address] [address] 15 Jun, 2016 Seizures R56.9 ; Thoracic ne uritis M54.14 ; Lumbar neuritis M54.16 and GERD (gastroesophageal reflux disease) K21.9 [facility] [address] [place] [id number] [address] [place] [address] Jan, [facility] [address] [address] Sep, [facility] [address] [address] Sep, Intracranial injury, without loss of consciousness, subsequent encounter S06.9X0D ; Cardiomyopathy I42.9 ; GERD (gastroesophageal reflux disease) K21.9 ; Hypertension, benign I10 ; Thoracic neuritis M54.14 and Lumbar neuritis M54.16 [facility] [address] [address] Mar, [facility] [address] [address] Mar, Coronary atherosclerosis of unspecified type of vessel, [place] or graft 414.00 ; Unspecified essential hypertension 401.9 ; Thoracic or lumbosacral neuritis or radiculitis, unspecified 724.4 and Other convulsions 780.39 [facility] [address] [address] Jan, [facility] [address] [address] Jan, [facility] [address] [address] Nov, [facility] [address] [address] Nov, [facility] [address] [address] Nov, [facility] [address] [id number] [address] [place] [address], [place] [address] Nov, 2014 [facility] [address] [id number] [address] [place] [address], [place] [address] Nov, 2014 [facility] [address] [id number] [address] [place] [address], [place] [address] Nov, 2014 [facility] [address] [id number] [address] [place] [address], [place] [address] Nov, 2014 [facility] [address] [id number] [address] [place] [address], [place] [address] Nov, 2014 [facility] [address] [id number] [address] [place] [address], [place] [address] Nov, 2014 [facility] [address] [id number] [address] [place] [address], [place] [address] Nov, 2014 [facility] [address] [id number] [address] [place] [address], [place] [address] Sep, [facility] [address] [id number] [address] [place] [address], [place] [address] Sep, [facility] [address] [id number] [address] [place] [address], [place] [address] Aug, [facility] [address] [id number] [address] [place] [address], [place] [address] Aug, [facility] [address] [id number] [address] [place] [address] Aug, [facility] [address] [id number] [address] [place] [address], [place] [address] Aug, [facility] [address] [id number] [address] [place] [address], [place] [address] Jul, [facility] [address] [id number] [address] [place] [address], [place] [address] Jul, [facility] [address] [id number] [address] [place] [address], [place] [address] Jul, [facility] [address] [id number] [address] [place] [address], [place] [address] Jul, [facility] [address] [id number] [address] [place] [address], [place] [address] Jun, [facility] [address] [id number] [address] [place] [address], [place] [address] Jun, [facility] [address] [id number] [address] [place] [address], [place] [address] Jun, [facility] [address] [id number] [address] [place] [address], [place] [address] May, [facility] [address] [id number] [address] [place] [address], [place] [address] May, [facility] [address] [id number] [address] [place] [address], [place] [address] May, [facility] [address] [id number] [address] [place] [address], [place] [address] May, [facility] [address] [id number] [address] [place] [address], [place] [address] May, [facility] [address] [id number] [address] [place] [address], [place] [address] May, [facility] [address] [id number] [address] [place] [address], [place] [address] May, [facility] [address] [id number] [address] [place] [address], [place] [address] May, [facility] [address] [id number] [address] [place] [address], [place] [address] February, [facility] [address] [id number] [address] [place] [address], [place] [address] February, [facility] [address] [id number] [address] [place] [address], [place] [address] Jan, [facility] [address] [id number] [address] [place] [address], [place] [address] Jan, [facility] [address] [id number] [address] [place] [address], [place] [address] Jan, [facility] [address] [id number] [address] [place] [address], [place] [address] Jan, [facility] [address] [id number] [address] [place] [address], [place] [address] Nov, [facility] [address] [id number] [address] [place] [address], [place] [address] Nov, [facility] [address] [id number] [address] [place] [address], [place] [address] Nov, [facility] [address] [id number] [address] [place] [address], [place] [address] Nov, [facility] [address] [id number] [address] [place] [address], [place] [address] Sep, [facility] [address] [id number] [address] [place] [address], [place] [address] Sep, [facility] [address] [id number] [address] [place] [address], [place] [address] Sep, [facility] [address] [id number] [address] [place] [address], [place] [address] Sep, [facility] [address] [id number] [address] [place] [address], [place] [address] 06 Sep, 2013 [facility] [address] [id number] [address] [place] [address], [place] [address] Sep, [facility] [address] [id number] [address] [place] [address], [place] [address] Jul, [facility] [address] [id number] [address] [place] [address], [place] [address] Jul, [facility] [address] [id number] [address] [place] [address], [place] [address] Jun, [facility] [address] [id number] [address] [place] [address], [place] [address] Jun, [facility] [address] [id number] [address] [place] [address], [place] [address] Jun, [facility] [address] [id number] [address] [place] [address], [place] [address] May, [facility] [address] [place] [id number] May, [facility] [address] [id number] [address] [place] [address], [place] [address] May, [facility] [address] [id number] [address] [place] [address], [place] [address] May, [facility] [address] [id number] [address] [place] [address], [place] [address] May, [facility] [address] [id number] [address] [place] [address], [place] [address] May, [facility] [address] [id number] [address] [place] [address], [place] [address] May, [facility] [address] [id number] [address] [place] [address], [place] [address] Apr, [facility] [address] [id number] [address] [place] [address], [place] [address] Apr, [facility] [address] [id number] [address] [place] [address], [place] [address] Apr, [facility] [address] [id number] [address] [place] [address], [place] [address] Apr, [facility] [address] [id number] [address] [place] [address], [place] [address] Mar, [facility] [address] [id number] [address] [place] [address], [place] [address] February, [facility] [address] [id number] [address] [place] [address], [place] [address] Jan, [facility] [address] [id number] [address] [place] [address], [place] [address] Dec, [facility] [address] [id number] [address] [place] [address], [place] [address] Dec, [facility] [address] [id number] [address] [place] [address], [place] [address] Dec, [facility] [address] [id number] [address] [place] [address], [place] [address] Nov, [facility] [address] [id number] [address] [place] [address], [place] [address] Nov, [facility] [address] [id number] [address] [place] [address], [place] [address] Nov, [facility] [address] [id number] [address] [place] [address], [place] [address] Oct, [facility] [address] [id number] [address] [place] [address], [place] [address] Oct, [facility] [address] [id number] [address] [place] [address], [place] [address] Sep, [facility] [address] [id number] [address] [place] [address], [place] [address] Sep, [facility] [address] [id number] [address] [place] [address], [place] [address] Sep, [facility] [address] [id number] [address] [place] [address], [place] [address] Sep, [facility] [address] [id number] [address] [place] [address], [place] [address] Sep, [facility] [address] [id number] [address] [place] [address], [place] [address] Sep, [facility] [address] [id number] [address] [place] [address], [place] [address] Aug, [facility] [address] [id number] [address] [place] [address], [place] [address] Aug, [facility] [address] [id number] [address] [place] [address], [place] [address] Aug, [facility] [address] [id number] [address] [place] [address], [place] [address] Aug, [facility] [address] [id number] [address] [place] [address], [place] [address] Aug, [facility] [address] [id number] [address] [place] [address], [place] [address] Aug, [facility] [address] [id number] [address] [place] [address], [place] [address] Aug, [facility] [address] [id number] [address] [place] [address], [place] [address] Aug, [facility] [address] [id number] [address] [place] [address], [place] [address] Aug, [facility] [address] [id number] [address] [place] [address], [place] [address] Aug, [facility] [address] [id number] [address] [place] [address], [place] [address] Jul, [facility] [address] [id number] [address] [place] [place] [address], [place] [address] Jul, [facility] [address] [id number] [address] [place] [address], [place] [address] Jul, [facility] [address] [id number] [address] [place] [address], [place] [address] Jul, [facility] [address] [id number] [address] [place] [address], [place] [address] Jul, [facility] [address] [id number] [address] [place] [address], [place] [address] Jul, [facility] [address] [id number] [address] [place] [address], [place] [address] Jul, [facility] [address] [id number] [address] [place] [address], [place] [address] Jul, [facility] [address] [id number] [address] [place] [address], [place] [address] 18 Jul, 2012 [facility] [address] [id number] [address] [place] [address], [place] [address] Jul, [facility] [address] [id number] [address] [place] [address], [place] [address] Jul, [facility] [address] [id number] [address] [place] [address], [place] [address] Jul, [facility] [address] [id number] [address] [place] [address], [place] [address] Jul, [facility] [address] [id number] [address] [place] [address], [place] [address] Jul, [facility] [address] [id number] [address] [place] [address], [place] [address] Jul, [facility] [address] [id number] [address] [place] [address], [place] [address] 28 Jun, 2012 [facility] [address] [id number] [address] [place] [address], [place] [address] 24 Jun, 2012 [facility] [address] [id number] [address] [place] [address], [place] [address] 19 Jun, 2012 [facility] [address] [id number] [address] [place] [address], [place] [address] May, [facility] [address] [id number] [address] [place] [address], [place] [address] May, [facility] [address] [id number] [address] [place] [address], [place] [address] Mar, [facility] [address] [id number] [address] [place] [address], [place] [address] Mar, [facility] [address] [id number] [address] [place] [address], [place] [address] February, [facility] [address] [id number] [address] [place] [address], [place] [address] February, [facility] [address] [id number] [address] [place] [address], [place] [address] Nov, [facility] [address] [id number] [address] [place] [address], [place] [address] Oct, [facility] [address] [id number] [address] [place] [address], [place] [address] Oct, [facility] [address] [id number] [address] [place] [address], [place] [address] Oct, [facility] [address] [id number] [address] [place] [address], [place] [address] Aug, [facility] [address] [id number] [address] [place] [address], [place] [address] Jul, [facility] [address] [id number] [address] [place] [address], [place] [address] Sep, [facility] [address] [id number] [address] [place] [address], [place] [address] Aug, [facility] [address] [id number] [address] [place] [address], [place] [address] Jul, [facility] [address] [id number] [address] [place] [address], [place] [address] Apr, [facility] [address] [id number] [address] [place] [address], [place] [address] February, [facility] [address] [id number] [address] [place] [address], [place] [address] Sep, [facility] [address] [id number] [address] [place] [address], [place] [address] Sep, [facility] [address] [id number] [address] [place] [address], [place] [address] Sep, [facility] [address] [facility] [id number] [address] [place] [address] Apr, [facility] [address] [facility] [id number] [address] [place] [address] Mar, [facility] [address] [facility] [id number] [address] [place] [address] February, [facility] [address] [facility] [id number] [address] [place] [address] Jan, [facility] [address] 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
--- OUTSIDE RECORDS SUMMARY | 2020-05-02 14:54 | XMS REPORT ---
Author Author Michelle LANGE Organization [facility] Address [address] [place] [address] Care Team Providers Care Skidder Loader Name Role Phone TRACEE LANGE Unavailable PROBLEMS Type Condition ICD9-CM Code RZE07-SF Code Onset Dates Condition S tatus SNOMED Code Problem Lumbar neuritis M54.16 Active 1281 21986 Problem Thoracic neuritis M54.14 Active 58 478172 Problem Hypertension, benign I10 Active 48306081 Problem Cardiomyopathy I42.9 Active 20680 001 Problem Epileptic seizure, generalized G40.309 Active 05824215 Problem Excessive daytime sleepiness G47.19 A ctive 957527892050 Problem GERD (gastroesophageal reflux disease) K21.9 Active 466000330 Problem Panlobular emphysema J43.1 Active 0188230 Problem Intracranial injury, without loss of consciousness, subsequent encounter S06.9X0D Active 603509431 Problem Ventricular arrhythmia I49.9 Active 11124833 Problem Mood disorder F39 Active 644396 05 Problem Seasonal allergic rhinitis, unspecified trigger J3 0.2 Active 979907647 Problem Observed sleep apnea G47.30 Active 07235104 ALLERGIES No Information ENCOUNTERS Encounter Location Date Diagnosis [place] [id number] [facility] [id number] [address] [place] [address] Apr, Epileptic seizure, generaliz ed G40.309 and Lumbar neuritis M54.16 [facility] [address] [facility] [id number] [address] [place] [address] Apr, [facility] [address] [place] [id number] [address] [place] [address] Apr, [facility] [address] [facility] [id number] [address] [place] [address] Mar, GERD (gastroesophageal reflu x disease) K21.9 [facility] [address] [id number] [address] [place] [address] Mar, [facility] [address] [id number] [address] [place] [address] Mar, [facility] [address] [id number] [address] [place] [address] Mar, [facility] [address] [facility] [id number] [address] [place] [address] Mar, [facility] [address] [id number] [address] [place] [address] Mar, [facility] [address] [facility] [id number] [address] [place] [address] Mar, [facility] [address] [facility] [id number] [address] [place] [address] February, Epileptic seizure, generaliz ed G40.309 and Hypertension, benign I10 [facility] [address] [facility] [id number] [address] [place] [address] February, Epileptic seizure, generaliz ed G40.309 [facility] [address] [facility] [id number] [address] [place] [address] February, [facility] [address] [facility] [id number] [address] [place] [address] Jan, [facility] [address] [facility] [id number] [address] [place] [address] Jan, [facility] [address] [facility] [id number] [address] [place] [address] Jan, [facility] [address] [facility] [id number] [address] [place] [address] Jan, Panlobular emphysema J43.1 [facility] [address] [facility] [id number] [address] [place] [address] Dec, Mood disorder F39 [facility] [address] [facility] [id number] [address] [place] [address] Nov, [facility] [address] [facility] [id number] [address] [place] [address] Oct, Cardiomyopathy I42.9 ; Hyper tension, benign I10 and Mood disorder F39 [facility] [address] [facility] [id number] [address] [place] [address] Oct, Epileptic seizure, generaliz ed G40.309 [facility] [address] [facility] [id number] [address] [place] [address] Oct, Panlobular emphysema J43.1 [facility] [address] [facility] [id number] [address] [place] [address] Oct, [facility] [address] [facility] [id number] [address] [place] [address] Oct, Panlobular emphysema J43.1 [facility] [address] [facility] [id number] [address] [place] [address] Sep, Unspecified convulsions R56. 9 [facility] [address] [facility] [id number] [address] [place] [address] Aug, Seizures R56.9 [facility] [address] [facility] [id number] [address] [place] [address] Aug, [facility] [address] [facility] [id number] [address] [place] [address] Aug, Hypertension, benign I10 [facility] [address] [facility] [id number] [address] [place] [address] Aug, [facility] [address] [facility] [id number] [address] [place] [address] Aug, [facility] [address] [facility] [id number] [address] [place] [address] Aug, [facility] [address] [facility] [id number] [address] [place] [address] Aug, Panlobular emphysema J43.1 ; Observed sleep apnea G47.30 and Excessive daytime sleepiness G47.19 [facility] [address] [facility] [id number] [address] [place] [address] Aug, [facility] [address] [facility] [id number] [address] [place] [address] Jun, Seizures R56.9 [facility] [address] [facility] [id number] [address] [place] [id number] Jun, [facility] [address] [facility] [id number] [address] [place] [address] Jun, [facility] [address] [facility] [id number] [address] [place] [address] Jun, [facility] [address] [facility] [id number] [address] [place] [address] May, Acute right-sided low back p ain without sciatica M54.5 [facility] [address] [facility] [id number] [address] [place] [address] May, Acute right-sided low back p ain without sciatica M54.5 [facility] [address] [facility] [id number] [address] [place] [address] Apr, High risk medication use Z79 .899 ; Acute septic pulmonary embolism without acute cor pulmonale I26.90 and Cellulitis of leg without foot L03.119 [facility] [address] [facility] [id number] [address] [place] [address] Jan, [facility] [address] [facility] [id number] [address] [place] [address] Jan, Seizures R56.9 [facility] [address] [facility] [id number] [address] [place] [address] Dec, Seizures R56.9 [facility] [address] [facility] [id number] [address] [place] [address] Nov, Dysuria R30.0 and Urinary tr act infection without hematuria, site unspecified N39.0 [facility] [address] [facility] [id number] [address] [place] [address] Nov, [facility] [address] [facility] [id number] [address] [place] [address] Nov, Seizures R56.9 [facility] [address] [facility] [id number] [address] [place] [address] Sep, Seizures R56.9 [facility] [address] [facility] [id number] [address] [place] [address] Sep, Seasonal allergic rhinitis, unspecified trigger J30.2 [facility] [address] [facility] [id number] [address] [place] [address] Aug, Neck pain on left side M54.2 ; Mood disorder F39 and GERD (gastroesophageal reflux disease) K21.9 [facility] [address] [facility] [id number] [address] [place] [address] Aug, Seizures R56.9 [facility] [address] [facility] [id number] [address] [place] [address] Aug, Mood disorder F39 ; Neck dionicio n on left side M54.2 and Hypertension, benign I10 [facility] [address] [facility] [id number] [address] [place] [address] Aug, [facility] [address] [facility] [id number] [address] [place] [address] Aug, [facility] [address] [facility] [id number] [address] [place] [address] Jul, [facility] [address] [facility] [id number] [address] [place] [address] Jul, Hypertension, benign I10 [facility] [address] [facility] [id number] [address] [place] [address] Jul, [facility] [address] [facility] [id number] [address] [place] [address] Jul, Thoracic neuritis M54.14 ; P ain of left leg M79.605 and Pain in right leg M79.604 [facility] [address] [id number] [address] [place] [address] Jun, Seizures R56.9 [facility] [address] [id number] [address] [place] [address] May, [facility] [address] [id number] [address] [place] [address] May, [facility] [address] [id number] [address] [place] [address] May, [facility] [address] [id number] [address] [place] [address] May, Seizures R56.9 [facility] [address] [id number] [address] [place] [address] May, [facility] [address] [facility] [id number] [address] [place] [address] May, Delirium R41.0 [facility] [address] [facility] [id number] [address] [place] [address] Apr, [facility] [address] [facility] [id number] [address] [place] [address] February, Ventricular arrhythmia I49.9 [facility] [address] [place] [id number] [address] [place] [address] February, [facility] [address] [facility] [id number] [address] [place] [address] Dec, Thoracic neuritis M54.14 ; L umbar neuritis M54.16 and Epileptic seizure, generalized G40.309 [facility] [address] [facility] [id number] [address] [place] [address] Sep, Epileptic seizure, generaliz ed G40.309 and Lumbar neuritis M54.16 [facility] [address] [place] [id number] [address] [place] [address] Aug, Thoracic neuritis M54.14 and Lumbar neuritis M54.16 [place] [address] [address] Jun, [place] [address] [address] Jun, Abscess of leg, left L02.416 [place] [address] [address] May, Lumbar neuritis M54.16 ; Tho racic neuritis M54.14 ; Intracranial injury, without loss of consciousness, subsequent encounter S06.9X0D and Cardiomyopathy I42.9 [place] [address] [address] Apr, Lumbar neuritis M54.16 [place] [address] [address] Apr, [place] [address] [address] Apr, Elevated liver enzymes R74.8 and Renal insufficiency N28.9 [place] [address] [address] Apr, Lumbar neuritis M54.16 ; Tho racic neuritis M54.14 ; Hypertension, benign I10 ; Cardiomyopathy I42.9 and Epileptic seizure, generalized G40.309 [place] [address] [address] Mar, [place] [address] [address] February, [place] [address] [address] February, Lumbar neuritis M54.16 ; Tho racic neuritis M54.14 ; Hypertension, benign I10 ; Cardiomyopathy I42.9 and Epileptic seizure, generalized G40.309 [place] [address] [address] Dec, [facility] [address] [address] Sep, Epigastric mass R19.06 [facility] [address] [address] Sep, Epigastric mass R19.06 [facility] [address] [address] Sep, [facility] [address] [address] Sep, Epigastric mass R19.06 [facility] [address] [address] Sep, Epigastric mass R19.06 and L roque mass R91.8 [facility] [address] [address] Jul, Shortness of breath R06.02 ; Dysuria R30.0 and Acute bronchitis, unspecified organism J20.9 [place] [address] [address] Jul, [place] [address] [address] 15 Jun, 2016 Seizures R56.9 ; Thoracic ne uritis M54.14 ; Lumbar neuritis M54.16 and GERD (gastroesophageal reflux disease) K21.9 [facility] [address] [address] Jan, [place] [address] [address] Sep, [place] [address] [address] 09 Sep, 2015 Intracranial injury, without loss of consciousness, subsequent encounter S06.9X0D ; Cardiomyopathy I42.9 ; GERD (gastroesophageal reflux disease) K21.9 ; Hypertension, benign I10 ; Thoracic neuritis M54.14 and Lumbar neuritis M54.16 [facility] [address] [address] Mar, [facility] [address] [place] [id number] [place] [address] Mar, Coronary atherosclerosis of unspecified type of vessel, [place] or graft 414.00 ; Unspecified essential hypertension 401.9 ; Thoracic or lumbosacral neuritis or radiculitis, unspecified 724.4 and Other convulsions 780.39 [facility] [address] [address] Jan, [facility] [address] [place] [id number] [place] [address] Jan, [facility] [address] [address] Nov, [facility] [address] [place] [id number] [address] [place] [address] Nov, [facility] [address] [address] Nov, [facility] [address] [address] Nov, [facility] [address] [address] Nov, [facility] [address] [place] [id number] [address] [place] [address] Nov, [facility] [address] [address] Nov, [facility] [address] [facility] [id number] [address] [place] [address] Nov, [facility] [address] [place] [id number] [place] [address] Nov, [facility] [address] [id number] [address] [place] [address], [place] [address] Nov, [facility] [address] [id number] [address] [place] [address], [place] [address] Sep, [facility] [address] [id number] [address] [place] [address], [place] [address] Sep, [facility] [address] [id number] [address] [place] [address], [place] [address] Aug, [facility] [address] [id number] [address] [place] [address], [place] [address] Aug, [facility] [address] [id number] [address] [place] [address], [place] [address] Aug, [facility] [address] [id number] [address] [place] [address], [place] [address] Aug, [facility] [address] [id number] [address] [place] [address], [place] [address] Jul, [facility] [address] [id number] [address] [place] [address], [place] [address] Jul, [facility] [address] [id number] [address] [place] [address], [place] [address] Jul, [facility] [address] [id number] [address] [place] [address], [place] [address] Jul, [facility] [address] [id number] [address] [place] [address], [place] [address] Jun, [facility] [address] [id number] [address] [place] [address], [place] [address] Jun, [facility] [address] [id number] [address] [place] [address], [place] [address] Jun, [facility] [address] [id number] [address] [place] [address], [place] [address] May, [facility] [address] [id number] [address] [place] [address], [place] [address] May, [facility] [address] [id number] [address] [place] [address], [place] [address] May, [facility] [address] [id number] [address] [place] [address], [place] [address] May, [facility] [address] [id number] [address] [place] [address], [place] [address] May, [facility] [address] [id number] [address] [place] [address], [place] [address] May, [facility] [address] [id number] [address] [place] [address], [place] [address] May, [facility] [address] [id number] [address] [place] [address], [place] [address] May, [facility] [address] [id number] [address] [place] [address], [place] [address] February, [facility] [address] [id number] [address] [place] [address], [place] [address] February, [facility] [address] [id number] [address] [place] [address], [place] [address] Jan, [facility] [address] [id number] [address] [place] [address], [place] [address] Jan, [facility] [address] [id number] [address] [place] [address], [place] [address] Jan, [facility] [address] [id number] [address] [place] [address], [place] [address] Jan, [facility] [address] [id number] [address] [place] [address], [place] [address] Nov, [facility] [address] [id number] [address] [place] [address], [place] [address] Nov, [facility] [address] [id number] [address] [place] [address], [place] [address] Nov, [facility] [address] [id number] [address] [place] [address], [place] [address] Nov, [facility] [address] [id number] [address] [place] [address], [place] [address] Sep, [facility] [address] [id number] [address] [place] [address], [place] [address] Sep, [facility] [address] [id number] [address] [place] [address], [place] [address] Sep, [facility] [address] [id number] [address] [place] [address], [place] [address] Sep, [facility] [address] [id number] [address] [place] [address], [place] [address] Sep, [facility] [address] [id number] [address] [place] [address], [place] [address] Sep, [facility] [address] [id number] [address] [place] [address], [place] [address] Jul, [facility] [address] [id number] [address] [place] [address], [place] [address] Jul, [facility] [address] [id number] [address] [place] [address] 30 Jun, 2013 [facility] [address] [id number] [address] [place] [address], [place] [address] Jun, [facility] [address] [id number] [address] [place] [address], [place] [address] 17 Jun, 2013 [facility] [address] [id number] [address] [place] [address], [place] [address] May, [facility] [address] [place], [place] [id number] May, [facility] [address] [id number] [address] [place] [id number] May, [facility] [address] [id number] [address] [place] [id number] May, [facility] [address] [id number] [facility] [place] [address] May, [facility] [address] [id number] [address] [place] [address], [place] [address] May, [facility] [address] [id number] [address] [place] [address], [place] [address] May, [facility] [address] [id number] [address] [place] [address], [place] [address] Apr, [facility] [address] [id number] [address] [place] [address], [place] [address] Apr, [facility] [address] [id number] [address] [place] [address], [place] [address] Apr, [facility] [address] [id number] [address] [place] [address], [place] [address] Apr, [facility] [address] [id number] [address] [place] [address], [place] [address] Mar, [facility] [address] [id number] [address] [place] [address], [place] [address] February, [facility] [address] [id number] [address] [place] [address], [place] [address] Jan, [facility] [address] [id number] [address] [place] [address], [place] [address] Dec, [facility] [address] [id number] [address] [place] [address], [place] [address] Dec, [facility] [address] [id number] [address] [place] [address], [place] [address] Dec, [facility] [address] [id number] [address] [place] [address], [place] [address] Nov, [facility] [address] [id number] [address] [place] [address], [place] [address] Nov, [facility] [address] [id number] [address] [place] [address], [place] [address] Nov, [facility] [address] [id number] [address] [place] [address], [place] [address] Oct, [facility] [address] [id number] [address] [place] [address], [place] [address] Oct, [facility] [address] [id number] [address] [place] [address], [place] [address] Sep, [facility] [address] [id number] [address] [place] [address], [place] [address] Sep, [facility] [address] [id number] [address] [place] [address], [place] [address] Sep, [facility] [address] [id number] [address] [place] [address], [place] [address] Sep, [facility] [address] [id number] [address] [place] [address], [place] [address] Sep, [facility] [address] [id number] [address] [place] [address], [place] [address] Sep, [facility] [address] [id number] [address] [place] [address], [place] [address] Aug, [facility] [address] [id number] [address] [place] [address], [place] [address] Aug, [facility] [facility] [address] [id number] [address] [place] [address], [place] [address] Aug, [facility] [address] [id number] [address] [place] [address], [place] [address] Aug, [facility] [address] [id number] [address] [place] [address], [place] [address] Aug, [facility] [address] [id number] [address] [place] [address], [place] [address] Aug, [facility] [address] [id number] [address] [place] [address], [place] [address] Aug, [facility] [address] [id number] [address] [place] [address], [place] [address] Aug, [facility] [address] [id number] [address] [place] [address], [place] [address] Aug, [facility] [address] [id number] [address] [place] [address], [place] [address] Aug, [facility] [address] [id number] [address] [place] [address], [place] [address] Jul, [facility] [address] [id number] [address] [place] [address], [place] [address] Jul, [facility] [address] [id number] [address] [place] [address], [place] [address] Jul, [facility] [address] [id number] [address] [place] [address], [place] [address] Jul, [facility] [address] [id number] [address] [place] [address] Jul, [facility] [address] [id number] [address] [place] [address], [place] [address] Jul, [facility] [address] [id number] [address] [place] [address] Jul, [facility] [address] [id number] [address] [place] [address] Jul, [facility] [address] [id number] [address] [place] [id number] 18 Jul, 2012 [facility] [address] [id number] [address] [place] [address], [place] [address] Jul, [facility] [address] [id number] [address] [place] [address] Jul, [facility] [address] [id number] [address] [place] [address] Jul, [facility] [address] [id number] [address] [place] [address], [place] [address] 17 Jul, 2012 [facility] [address] [id number] [address] [place] [address], [place] [address] Jul, [facility] [address] [id number] [address] [place] [address], [place] [address] Jul, [facility] [address] [id number] [address] [place] [address], [place] [address] 28 Jun, 2012 [facility] [address] [id number] [address] [place] [address], [place] [address] 24 Jun, 2012 [facility] [address] [id number] [address] [place] [address], [place] [address] Jun, [facility] [address] [id number] [address] [place] [address], [place] [address] May, [facility] [address] [id number] [address] [place] [address], [place] [address] May, [facility] [address] [id number] [address] [place] [address], [place] [address] Mar, [facility] [address] [id number] [address] [place] [address], [place] [address] Mar, [facility] [address] [id number] [address] [place] [address], [place] [address] February, [facility] [address] [id number] [address] [place] [address], [place] [address] February, [facility] [address] [id number] [address] [place] [address], [place] [address] Nov, [facility] [address] [id number] [address] [place] [address], [place] [address] Oct, [facility] [address] [id number] [address] [place] [address], [place] [address] Oct, [facility] [address] [id number] [address] [place] [address], [place] [address] Oct, [facility] [address] [id number] [address] [place] [address] Aug, [facility] [address] [id number] [address] [place] [address] Jul, [facility] [address] [id number] [address] [place] [address] Sep, [facility] [address] [id number] [address] [place] [address] Aug, [facility] [address] [id number] [address] [place] [address] Jul, [facility] [address] [id number] [address] [place] [address] Apr, [facility] [address] [id number] [address] [place] [address] February, [facility] [address] [id number] [address] [place] [address] Sep, [facility] [address] [id number] [address] [place] [address] Sep, [facility] [address] [id number] [address] [place] [address] Sep, [facility] [address] [id number] [address] [place] [address] Apr, [facility] [address] [id number] [address] [place] [address] Mar, [facility] [address] [id number] [address] [place] [address] February, [facility] [address] [id number] [address] [place] [address] Jan, [facility] [address] [id number] [address] [place] [address] Jul, IMMUNIZATIONS No Known Immunizations SOCIAL HISTORY Never Assessed REASON FOR VISIT PLAN OF CARE VITAL SIGNS Height 63 in 2013-09-18 Weight 208 lbs 2013-09-18 Temperature 96.3 degrees Fahrenheit 2013-09-18 Heart Rate 80 bpm 2013-09-18 Respiratory Rate 20 2013-09-18 Blood pressure systolic 138 mmHg 2013-09-18 Blood pressure diastolic 72 mmHg 2013-09-18 MEDICATIONS No Known Medications RESULTS No Results PROCEDURES No Known procedures INSTRUCTIONS MEDICATIONS ADMINISTERED No Known Medications MEDICAL (GENERAL) HISTORY Type Description Date Medical History 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
--- OUTSIDE RECORDS SUMMARY | 2020-05-02 14:54 | XMS REPORT ---
Author Author Michelle LANGE Organization [facility] Address [address] [place] [address] Care Team Providers Care Order Entry Specialist Name Role Phone TRACEE LANGE Unavailable PROBLEMS Type Condition ICD9-CM Code MPI22-YC Code Onset Dates Condition S tatus SNOMED Code Problem Lumbar neuritis M54.16 Active 1281 13173 Problem Thoracic neuritis M54.14 Active 58 312613 Problem Hypertension, benign I10 Active 99202281 Problem Cardiomyopathy I42.9 Active 89164 001 Problem Epileptic seizure, generalized G40.309 Active 39420904 Problem Excessive daytime sleepiness G47.19 A ctive 333714426359 Problem GERD (gastroesophageal reflux disease) K21.9 Active 098900038 Problem Panlobular emphysema J43.1 Active 2666993 Problem Intracranial injury, without loss of consciousness, subsequent encounter S06.9X0D Active 430319097 Problem Ventricular arrhythmia I49.9 Active 24963743 Problem Mood disorder F39 Active 615757 05 Problem Seasonal allergic rhinitis, unspecified trigger J3 0.2 Active 189932076 Problem Observed sleep apnea G47.30 Active 80110021 ALLERGIES No Information ENCOUNTERS Encounter Location Date Diagnosis [facility] [address] [facility] [id number] [address] [place] [phone] Apr, [facility] [address] [facility] [id number] [address] [place] [phone] Apr, [facility] [address] [facility] [id number] [address] [place] [phone] Apr, [facility] [address] [facility] [id number] [address] [place] [phone] Mar, GERD (gastroesophageal reflu x disease) K21.9 [facility] [address] [facility] [id number] [address] [place] [phone] Mar, [facility] [address] [id number] [address] [place] [phone] Mar, [facility] [address] [id number] [address] [place] [phone] Mar, [facility] [address] [facility] [id number] [address] [place] [id number] Mar, [facility] [address] [id number] [address] [place] [id number] Mar, [facility] [address] [id number] [address] [place] [phone] Mar, [facility] [address] [facility] [id number] [address] [place] [id number] February, Epileptic seizure, generaliz ed G40.309 and Hypertension, benign I10 [facility] [address] [facility] [id number] [address] [place] [address] February, Epileptic seizure, generaliz ed G40.309 [facility] [address] [facility] [id number] [address] [place] [phone] February, [facility] [address] [facility] [id number] [address] [place] [phone] Jan, [facility] [address] [facility] [id number] [address] [place] [phone] Jan, [facility] [address] [facility] [id number] [address] [place] [phone] Jan, [facility] [address] [facility] [id number] [address] [place] [address] Jan, Panlobular emphysema J43.1 [facility] [address] [facility] [id number] [address] [place] [phone] Dec, Mood disorder F39 [facility] [address] [facility] [id number] [address] [place] [phone] Nov, [facility] [address] [facility] [id number] [address] [place] [phone] Oct, Cardiomyopathy I42.9 ; Hyper tension, benign I10 and Mood disorder F39 [facility] [address] [facility] [id number] [address] [place] [id number] Oct, Epileptic seizure, generaliz ed G40.309 [facility] [address] [facility] [id number] [address] [place] [id number] 16 Oct, 2019 Panlobular emphysema J43.1 [facility] [address] [facility] [id number] [address] [place] [id number] Oct, [facility] [address] [facility] [id number] [address] [place] [phone] Oct, Panlobular emphysema J43.1 [facility] [address] [facility] [id number] [address] [place] [phone] Sep, Unspecified convulsions R56. 9 [facility] [address] [facility] [id number] [address] [place] [phone] Aug, Seizures R56.9 [facility] [address] [facility] [id number] [address] [place] [id number] Aug, [facility] [address] [facility] [id number] [address] [place] [phone] Aug, Hypertension, benign I10 [facility] [address] [facility] [id number] [address] [place] [phone] Aug, [facility] [address] [facility] [id number] [address] [place] [phone] Aug, [facility] [address] [facility] [id number] [address] [place] [phone] Aug, [facility] [address] [facility] [id number] [address] [place] [phone] Aug, Panlobular emphysema J43.1 ; Observed sleep apnea G47.30 and Excessive daytime sleepiness G47.19 [facility] [address] [id number] [address] [place] [phone] Aug, [facility] [address] [id number] [address] [place] [phone] Jun, Seizures R56.9 [facility] [address] [id number] [address] [place] [phone] Jun, [facility] [address] [id number] [address] [place] [phone] Jun, [facility] [address] [id number] [address] [place] [phone] Jun, [facility] [address] [id number] [address] [place] [phone] May, Acute right-sided low back p ain without sciatica M54.5 [facility] [address] [facility] [id number] [address] [place] [phone] May, Acute right-sided low back p ain without sciatica M54.5 [facility] [address] [id number] [address] [place] [id number] Apr, High risk medication use Z79 .899 ; Acute septic pulmonary embolism without acute cor pulmonale I26.90 and Cellulitis of leg without foot L03.119 [facility] [address] [facility] [id number] [address] [place] [phone] Jan, [facility] [address] [facility] [id number] [address] [place] [phone] Jan, Seizures R56.9 [facility] [address] [facility] [id number] [address] [place] [phone] Dec, Seizures R56.9 [facility] [address] [facility] [id number] [address] [place] [phone] Nov, Dysuria R30.0 and Urinary tr act infection without hematuria, site unspecified N39.0 [facility] [address] [facility] [id number] [address] [place] [phone] Nov, [facility] [address] [facility] [id number] [address] [place] [phone] Nov, Seizures R56.9 [facility] [address] [facility] [id number] [address] [place] [phone] Sep, Seizures R56.9 [facility] [address] [facility] [id number] [address] [place] [phone] Sep, Seasonal allergic rhinitis, unspecified trigger J30.2 [facility] [address] [facility] [id number] [address] [place] [phone] Aug, Neck pain on left side M54.2 ; Mood disorder F39 and GERD (gastroesophageal reflux disease) K21.9 [facility] [address] [place] [id number] [address] [place] [id number] Aug, Seizures R56.9 [facility] [address] [facility] [id number] [address] [place] [phone] Aug, Mood disorder F39 ; Neck dionicio n on left side M54.2 and Hypertension, benign I10 [facility] [address] [place] [id number] [address] [place] [phone] Aug, [facility] [address] [place] [id number] [address] [place] [phone] Aug, [facility] [address] [facility] [id number] [address] [place] [phone] Jul, [facility] [address] [facility] [id number] [address] [place] [phone] Jul, Hypertension, benign I10 [facility] [address] [facility] [id number] [address] [place] [id number] Jul, [facility] [address] [facility] [id number] [address] [place] [phone] Jul, Thoracic neuritis M54.14 ; P ain of left leg M79.605 and Pain in right leg M79.604 [facility] [address] [id number] [address] [place] [phone] Jun, Seizures R56.9 [facility] [address] [id number] [address] [place] [phone] May, [facility] [address] [id number] [address] [place] [phone] May, [facility] [address] [id number] [address] [place] [phone] May, [facility] [address] [id number] [address] [place] [id number] May, Seizures R56.9 [facility] [address] [id number] [address] [place] [phone] May, [facility] [address] [facility] [id number] [address] [place] [phone] May, Delirium R41.0 [facility] [address] [id number] [address] [place] [phone] Apr, [facility] [address] [facility] [id number] [address] [place] [phone] February, Ventricular arrhythmia I49.9 [facility] [address] [facility] [id number] [address] [place] [phone] February, [facility] [address] [facility] [id number] [address] [place] [address] Dec, Thoracic neuritis M54.14 ; L umbar neuritis M54.16 and Epileptic seizure, generalized G40.309 [facility] [address] [facility] [id number] [address] [place] [address] Sep, Epileptic seizure, generaliz ed G40.309 and Lumbar neuritis M54.16 [facility] [address] [facility] [id number] [address] [place] [phone] Aug, Thoracic neuritis M54.14 and Lumbar neuritis M54.16 [place] [address] [address] Jun, [place] [address] [address] Jun, Abscess of leg, left L02.416 [place] [address] [address] May, Lumbar neuritis M54.16 ; Tho racic neuritis M54.14 ; Intracranial injury, without loss of consciousness, subsequent encounter S06.9X0D and Cardiomyopathy I42.9 [place] [address] [address] Apr, Lumbar neuritis M54.16 [place] [address] [address] Apr, [place] [address] [address] Apr, Elevated liver enzymes R74.8 and Renal insufficiency N28.9 [place] [address] [address] Apr, Lumbar neuritis M54.16 ; Tho racic neuritis M54.14 ; Hypertension, benign I10 ; Cardiomyopathy I42.9 and Epileptic seizure, generalized G40.309 [place] [address] [address] Mar, [place] [address] [address] February, [place] [address] [address] February, Lumbar neuritis M54.16 ; Tho racic neuritis M54.14 ; Hypertension, benign I10 ; Cardiomyopathy I42.9 and Epileptic seizure, generalized G40.309 [place] [address] [address] Dec, [facility] [address] [address] Sep, Epigastric mass R19.06 [facility] [address] [address] Sep, Epigastric mass R19.06 [place] [address] [address] Sep, [facility] [address] [address] Sep, Epigastric mass R19.06 [place] [address] [address] Sep, Epigastric mass R19.06 and L roque mass R91.8 [facility] [address] [address] Jul, Shortness of breath R06.02 ; Dysuria R30.0 and Acute bronchitis, unspecified organism J20.9 [place] [address] [address] Jul, [place] [address] [address] Jun, Seizures R56.9 ; Thoracic ne uritis M54.14 ; Lumbar neuritis M54.16 and GERD (gastroesophageal reflux disease) K21.9 [facility] [address] [address] Jan, [place] [address] [address] Sep, [place] [address] [address] Sep, Intracranial injury, without loss of consciousness, subsequent encounter S06.9X0D ; Cardiomyopathy I42.9 ; GERD (gastroesophageal reflux disease) K21.9 ; Hypertension, benign I10 ; Thoracic neuritis M54.14 and Lumbar neuritis M54.16 [facility] [address] [facility] [id number] [address] [place] [phone] Mar, [facility] [address] [facility] [id number] [address] [place] [address] Mar, Coronary atherosclerosis of unspecified type of vessel, coushatta or graft 414.00 ; Unspecified essential hypertension 401.9 ; Thoracic or lumbosacral neuritis or radiculitis, unspecified 724.4 and Other convulsions 780.39 [facility] [address] [facility] [id number] [address] [place] [phone] Jan, [facility] [address] [facility] [id number] [address] [place] [id number] Jan, [facility] [address] [facility] [id number] [address] [place] [phone] Nov, [facility] [address] [facility] [id number] [address] [place] [phone] Nov, [facility] [address] [facility] [id number] [address] [place] [id number] Nov, [facility] [address] [facility] [id number] [address] [place] [phone] Nov, [facility] [address] [facility] [id number] [address] [place] [phone] Nov, [facility] [address] [facility] [id number] [address] [place] [phone] Nov, [facility] [address] [facility] [id number] [address] [place] [phone] Nov, [facility] [address] [facility] [id number] [address] [place] [phone] Nov, [facility] [address] [facility] [id number] [address] [place] [phone] Nov, [facility] [address] [id number] [address] [place] [address], [place] [address] Nov, [facility] [address] [id number] [address] [place] [address], [place] [address] Sep, [facility] [address] [id number] [address] [place] [address], [place] [address] Sep, [facility] [address] [id number] [address] [place] [address], [place] [address] Aug, [facility] [address] [id number] [address] [place] [address], [place] [address] Aug, [facility] [address] [id number] [address] [place] [address], [place] [address] Aug, [facility] [address] [id number] [address] [place] [address], [place] [address] Aug, [facility] [address] [id number] [address] [place] [address], [place] [address] Jul, [facility] [address] [id number] [address] [place] [address], [place] [address] Jul, [facility] [address] [id number] [address] [place] [address], [place] [address] Jul, [facility] [address] [id number] [address] [place] [address], [place] [address] Jul, [facility] [address] [id number] [address] [place] [address], [place] [address] Jun, [facility] [address] [id number] [address] [place] [address], [place] [address] Jun, [facility] [address] [id number] [address] [place] [address], [place] [address] Jun, [facility] [address] [id number] [address] [place] [address], [place] [address] May, [facility] [address] [id number] [address] [place] [address], [place] [address] May, [facility] [address] [id number] [facility] [place] [address] May, [facility] [address] [id number] [address] [place] [address], [place] [address] May, [facility] [address] [id number] [address] [place] [address], [place] [address] May, [facility] [address] [id number] [address] [place] [address], [place] [address] May, [facility] [address] [id number] [address] [place] [address], [place] [address] May, [facility] [address] [id number] [address] [place] [address], [place] [address] May, [facility] [address] [id number] [address] [place] [address], [place] [address] February, [facility] [address] [id number] [address] [place] [address], [place] [address] February, [facility] [address] [id number] [address] [place] [address], [place] [address] Jan, [facility] [address] [id number] [address] [place] [address], [place] [address] Jan, [facility] [address] [id number] [address] [place] [address], [place] [address] Jan, [facility] [address] [id number] [address] [place] [address], [place] [address] Jan, [facility] [address] [id number] [address] [place] [address], [place] [address] Nov, [facility] [address] [id number] [address] [place] [address], [place] [address] Nov, [facility] [address] [id number] [address] [place] [address], [place] [address] Nov, [facility] [address] [id number] [address] [place] [address], [place] [address] 18 Nov, 2013 [facility] [address] [id number] [address] [place] [address], [place] [address] Sep, [facility] [address] [id number] [address] [place] [address], [place] [address] Sep, [facility] [address] [id number] [address] [place] [address], [place] [address] Sep, [facility] [address] [id number] [address] [place] [address], [place] [address] Sep, [facility] [address] [id number] [address] [place] [address], [place] [address] Sep, [facility] [address] [id number] [address] [place] [address], [place] [address] Sep, [facility] [address] [id number] [address] [place] [address], [place] [address] Jul, [facility] [address] [id number] [address] [place] [address], [place] [address] Jul, [facility] [address] [id number] [address] [place] [address], [place] [address] 30 Jun, 2013 [facility] [address] [id number] [address] [place] [address], [place] [address] Jun, [facility] [address] [id number] [address] [place] [address], [place] [address] 17 Jun, 2013 [facility] [address] [id number] [address] [place] [address], [place] [address] May, [facility] [address] [place] [id number] May, [facility] [address] [id number] [address] [place] [address], [place] [address] May, [facility] [address] [id number] [address] [place] [address], [place] [address] May, [facility] [address] [id number] [address] [place] [address], [place] [address] May, [facility] [address] [id number] [address] [place] [address], [place] [address] May, [facility] [address] [id number] [address] [place] [address], [place] [address] May, [facility] [address] [id number] [address] [place] [address], [place] [address] Apr, [facility] [address] [id number] [address] [place] [address], [place] [address] Apr, [facility] [address] [id number] [address] [place] [address], [place] [address] Apr, [facility] [address] [id number] [address] [place] [address], [place] [address] Apr, [facility] [address] [id number] [address] [place] [address], [place] [address] Mar, [facility] [address] [id number] [address] [place] [address], [place] [address] February, [facility] [address] [id number] [address] [place] [address], [place] [address] Jan, [facility] [address] [id number] [address] [place] [address], [place] [address] Dec, [facility] [address] [id number] [address] [place] [address], [place] [address] Dec, [facility] [address] [id number] [address] [place] [address], [place] [address] Dec, [facility] [address] [id number] [address] [place] [address], [place] [address] Nov, [facility] [address] [id number] [address] [place] [address], [place] [address] Nov, [facility] [address] [id number] [address] [place], [place] [address] [address] Nov, [facility] [address] [id number] [address] [place] [address], [place] [address] Oct, [facility] [address] [id number] [address] [place] [address], [place] [address] Oct, [facility] [address] [id number] [address] [place] [address], [place] [address] Sep, [facility] [address] [id number] [address] [place] [address], [place] [address] Sep, [facility] [address] [id number] [address] [place] [address], [place] [address] Sep, [facility] [address] [id number] [address] [place] [address], [place] [address] Sep, [facility] [address] [id number] [address] [place] [address], [place] [address] Sep, [facility] [address] [id number] [address] [place] [address], [place] [address] Sep, [facility] [address] [id number] [address] [place] [address], [place] [address] Aug, [facility] [address] [id number] [address] [place] [address], [place] [address] Aug, [facility] [address] [id number] [address] [place] [address], [place] [address] Aug, [facility] [address] [id number] [address] [place] [address], [place] [address] Aug, [facility] [address] [id number] [address] [place] [address], [place] [address] Aug, [facility] [address] [id number] [address] [place] [address], [place] [address] Aug, [facility] [address] [id number] [address] [place] [address], [place] [address] Aug, [facility] [address] [id number] [address] [place] [address], [place] [address] Aug, [facility] [address] [id number] [address] [place] [address], [place] [address] Aug, [facility] [address] [id number] [address] [place] [address], [place] [address] Aug, [facility] [address] [id number] [address] [place] [address], [place] [address] Jul, [facility] [address] [id number] [address] [place] [address], [place] [address] Jul, [facility] [address] [id number] [address] [place] [address], [place] [address] Jul, [facility] [address] [id number] [address] [place] [address], [place] [address] Jul, [facility] [address] [id number] [address] [place] [address], [place] [address] Jul, [facility] [address] [id number] [address] [place] [address], [place] [address] Jul, [facility] [address] [id number] [address] [place] [address], [place] [address] Jul, [facility] [address] [id number] [address] [place] [address], [place] [address] Jul, [facility] [address] [id number] [address] [place] [address], [place] [address] 18 Jul, 2012 [facility] [address] [id number] [address] [place] [address], [place] [address] Jul, [facility] [address] [id number] [address] [place] [address], [place] [address] Jul, [facility] [address] [id number] [address] [place] [address], [place] [address] Jul, [facility] [address] [id number] [address] [place] [address], [place] [address] Jul, [facility] [address] [id number] [address] [place] [address], [place] [address] Jul, [facility] [address] [id number] [address] [place] [address], [place] [address] Jul, [facility] [address] [id number] [address] [place] [address], [place] [address] Jun, [facility] [address] [id number] [address] [place] [address], [place] [address] 24 Jun, 2012 [facility] [address] [id number] [address] [place] [address], [place] [address] Jun, [facility] [address] [id number] [address] [place] [address], [place] [address] May, [facility] [address] [id number] [address] [place] [address], [place] [address] May, [facility] [address] [id number] [address] [place] [address], [place] [address] Mar, [facility] [address] [id number] [address] [place] [address], [place] [address] Mar, [facility] [address] [id number] [address] [place] [address], [place] [address] February, [facility] [address] [id number] [address] [place] [address], [place] [address] February, [facility] [address] [id number] [address] [place] [address], [place] [address] Nov, [facility] [address] [id number] [address] [place] [address], [place] [address] Oct, [facility] [address] [id number] [address] [place] [address], [place] [address] Oct, [facility] [address] [id number] [address] [place] [address], [place] [address] Oct, [facility] [address] [id number] [address] [place] [address] Aug, [facility] [address] [id number] [address] [place] [address] Jul, [facility] [address] [id number] [address] [place] [address] Sep, [facility] [address] [id number] [address] [place] [address] Aug, [facility] [address] [id number] [address] [place] [address] Jul, [facility] [address] [id number] [address] [place] [address] Apr, [facility] [address] [id number] [address] [place] [address] February, [facility] [address] [id number] [address] [place] [address] Sep, [facility] [address] [id number] [address] [place] [address] Sep, [facility] [address] [id number] [address] [place] [address] Sep, [facility] [address] [id number] [address] [place] [address] Apr, [facility] [address] [id number] [address] [place] [address] Mar, [facility] [address] [id number] [address] [place] [address] February, [facility] [address] [id number] [address] [place] [address] Jan, [facility] [address] [id number] [address] [place] [address] Jul, IMMUNIZATIONS No Known Immunizations SOCIAL HISTORY Never Assessed REASON FOR VISIT PLAN OF CARE VITAL SIGNS MEDICATIONS Unknown Medications RESULTS No Results PROCEDURES No Known procedures INSTRUCTIONS MEDICATIONS ADMINISTERED No Known Medications MEDICAL (GENERAL) HISTORY Type Description Date Medical History 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
--- OUTSIDE RECORDS SUMMARY | 2020-05-02 14:55 | XMS REPORT ---
Author Author Michelle Dukes Doctor Organization [facility] Address Unknown Phone Unavailable Care Team Providers Care Director Consumer Name Role Phone Migration, Doctor Unavailable Unavailable PROBLEMS Type Condition ICD9-CM Code MEK86-ML Code Onset Dates Condition S tatus SNOMED Code Problem Lumbar neuritis M54.16 Active 1281 26477 Problem Thoracic neuritis M54.14 Active 58 258963 Problem Hypertension, benign I10 Active 53689581 Problem Cardiomyopathy I42.9 Active 28488 001 Problem Epileptic seizure, generalized G40.309 Active 02149726 Problem Excessive daytime sleepiness G47.19 A ctive [id number] Problem GERD (gastroesophageal reflux disease) K21.9 Active 521200064 Problem Panlobular emphysema J43.1 Active 9472893 Problem Intracranial injury, without loss of consciousness, subsequent encounter S06.9X0D Active 158925797 Problem Ventricular arrhythmia I49.9 Active 69332613 Problem Mood disorder F39 Active 072394 05 Problem Seasonal allergic rhinitis, unspecified trigger J3 0.2 Active 802432024 Problem Observed sleep apnea G47.30 Active 92252249 ALLERGIES No Information ENCOUNTERS Encounter Location Date Diagnosis [facility] [address] [facility] [id number] [address] [place] [address] February, [facility] [address] [facility] [id number] [address] [place] [address] February, [facility] [address] [facility] [id number] [address] [place] [address] Jan, [facility] [address] [facility] [id number] [address] [place] [address] Jan, [facility] [address] [facility] [id number] [address] [place] [address] Jan, [facility] [address] [facility] [id number] [address] [place] [address] Jan, Panlobular emphysema J43.1 [facility] [address] [facility] [id number] [address] [place] [address] Dec, Mood disorder F39 [facility] [address] [facility] [id number] [address] [place] [address] Nov, [facility] [address] [facility] [id number] [address] [place] [address] Oct, Cardiomyopathy I42.9 ; Hyper tension, benign I10 and Mood disorder F39 [facility] [address] [facility] [id number] [address] [place] [address] Oct, Epileptic seizure, generaliz ed G40.309 [facility] [address] [facility] [id number] [address] [place] [address] Oct, Panlobular emphysema J43.1 [facility] [address] [place] [id number] [address] [place] [address] Oct, [facility] [address] [facility] [id number] [address] [place] [address] Oct, Panlobular emphysema J43.1 [facility] [address] [facility] [id number] [address] [place] [address] Sep, Unspecified convulsions R56. 9 [facility] [address] [facility] [id number] [address] [place] [address] Aug, Seizures R56.9 [facility] [address] [facility] [id number] [address] [place] [address] Aug, [facility] [address] [facility] [id number] [address] [place] [address] Aug, Hypertension, benign I10 [facility] [address] [facility] [id number] [address] [place] [address] Aug, [facility] [address] [facility] [id number] [address] [place] [address] Aug, [facility] [address] [id number] [address] [place] [address] Aug, [facility] [address] [facility] [id number] [address] [place] [address] Aug, Panlobular emphysema J43.1 ; Observed sleep apnea G47.30 and Excessive daytime sleepiness G47.19 [facility] [address] [id number] [address] [place] [address] Aug, [facility] [address] [id number] [address] [place] [address] Jun, Seizures R56.9 [facility] [address] [facility] [id number] [address] [place] [address] Jun, [facility] [address] [facility] [id number] [address] [place] [address] Jun, [facility] [address] [id number] [address] [place] [address] Jun, [facility] [address] [id number] [address] [place] [address] May, Acute right-sided low back p ain without sciatica M54.5 [facility] [address] [facility] [id number] [address] [place] [address] May, Acute right-sided low back p ain without sciatica M54.5 [facility] [address] [facility] [id number] [address] [place] [address] Apr, High risk medication use Z79 .899 ; Acute septic pulmonary embolism without acute cor pulmonale I26.90 and Cellulitis of leg without foot L03.119 [facility] [address] [id number] [address] [place] [address] Jan, [facility] [address] [facility] [id number] [address] [place] [address] Jan, Seizures R56.9 [facility] [address] [place] [id number] [address] [place] [address] Dec, Seizures R56.9 [facility] [address] [place] [id number] [address] [place] [address] Nov, Dysuria R30.0 and Urinary tr act infection without hematuria, site unspecified N39.0 [facility] [address] [place] [id number] [address] [place] [address] Nov, [facility] [address] [address] Nov, Seizures R56.9 [facility] [address] [address] Sep, Seizures R56.9 [facility] [address] [place] [id number] [place] [address] Sep, Seasonal allergic rhinitis, unspecified trigger J30.2 [facility] [address] [address] Aug, Neck pain on left side M54.2 ; Mood disorder F39 and GERD (gastroesophageal reflux disease) K21.9 [facility] [address] [address] Aug, Seizures R56.9 [facility] [address] [place] [id number] [place] [address] Aug, Mood disorder F39 ; Neck dionicio n on left side M54.2 and Hypertension, benign I10 [facility] [address] [place] [id number] [address] [place] [address] Aug, [facility] [address] [address] Aug, [facility] [address] [place] [id number] [address] [place] [address] Jul, [facility] [address] [address] Jul, Hypertension, benign I10 [facility] [address] [id number] [address] [place] [address] Jul, [facility] [address] [facility] [id number] [address] [place] [address] Jul, Thoracic neuritis M54.14 ; P ain of left leg M79.605 and Pain in right leg M79.604 [facility] [address] [id number] [address] [place] [address] Jun, Seizures R56.9 [facility] [address] [id number] [address] [place] [address] May, [facility] [address] [facility] [id number] [address] [place] [address] May, [facility] [address] [id number] [address] [place] [address] May, [facility] [address] [facility] [id number] [address] [place] [address] May, Seizures R56.9 [facility] [address] [id number] [address] [place] [address] May, [facility] [address] [facility] [id number] [address] [place] [address] May, Delirium R41.0 [facility] [address] [facility] [id number] [address] [place] [address] Apr, [facility] [address] [id number] [address] [place] [address] February, Ventricular arrhythmia I49.9 [facility] [address] [facility] [id number] [address] [place] [address] February, [facility] [address] [facility] [id number] [address] [place] [address] Dec, Thoracic neuritis M54.14 ; L umbar neuritis M54.16 and Epileptic seizure, generalized G40.309 [place] [address] [address] 15 Sep, 2017 Epileptic seizure, generaliz ed G40.309 and Lumbar neuritis M54.16 [place] [address] [address] Aug, Thoracic neuritis M54.14 and Lumbar neuritis M54.16 [place] [address] [address] Jun, [place] [address] [address] Jun, Abscess of leg, left L02.416 [place] [address] [address] May, Lumbar neuritis M54.16 ; Tho racic neuritis M54.14 ; Intracranial injury, without loss of consciousness, subsequent encounter S06.9X0D and Cardiomyopathy I42.9 [place] [address] [address] Apr, Lumbar neuritis M54.16 [place] [address] [address] Apr, [place] [address] [address] Apr, Elevated liver enzymes R74.8 and Renal insufficiency N28.9 [place] [address] [address] Apr, Lumbar neuritis M54.16 ; Tho racic neuritis M54.14 ; Hypertension, benign I10 ; Cardiomyopathy I42.9 and Epileptic seizure, generalized G40.309 [place] [address] [address] Mar, [place] [address] [address] February, [place] [address] [address] February, Lumbar neuritis M54.16 ; Tho racic neuritis M54.14 ; Hypertension, benign I10 ; Cardiomyopathy I42.9 and Epileptic seizure, generalized G40.309 [facility] [address] [address] Dec, [facility] [address] [address] Sep, Epigastric mass R19.06 [place] [address] [address] Sep, Epigastric mass R19.06 [place] [address] [address] Sep, [place] [address] [address] Sep, Epigastric mass R19.06 [place] [id number] [address] Sep, Epigastric mass R19.06 and L roque mass R91.8 [facility] [address] [address] Jul, Shortness of breath R06.02 ; Dysuria R30.0 and Acute bronchitis, unspecified organism J20.9 [facility] [address] [address] Jul, [place] [address] [address] 15 Jun, 2016 Seizures R56.9 ; Thoracic ne uritis M54.14 ; Lumbar neuritis M54.16 and GERD (gastroesophageal reflux disease) K21.9 [facility] [address] [address] Jan, [facility] [address] [place] [address] Sep, [facility] [address] [address] Sep, Intracranial injury, without loss of consciousness, subsequent encounter S06.9X0D ; Cardiomyopathy I42.9 ; GERD (gastroesophageal reflux disease) K21.9 ; Hypertension, benign I10 ; Thoracic neuritis M54.14 and Lumbar neuritis M54.16 [facility] [address] [address] Mar, [facility] [address] [address] Mar, Coronary atherosclerosis of unspecified type of vessel, [place] or graft 414.00 ; Unspecified essential hypertension 401.9 ; Thoracic or lumbosacral neuritis or radiculitis, unspecified 724.4 and Other convulsions 780.39 [facility] [address] [address] Jan, [facility] [address] [address] Jan, [facility] [address] [address] Nov, [facility] [address] [address] Nov, [facility] [address] [address] Nov, [facility] [address] [address] Nov, [facility] [address] [address] Nov, [facility] [address] [address] Nov, [facility] [address] [address] Nov, 2014 [facility] [address] [id number] [address] [place] [address], [place] [address] Nov, 2014 [facility] [address] [id number] [address] [place] [address], [place] [address] Nov, 2014 [facility] [address] [id number] [address] [place] [address], [place] [address] Nov, [facility] [address] [id number] [address] [place] [address], [place] [address] Sep, [facility] [address] [id number] [address] [place] [address], [place] [address] Sep, [facility] [address] [id number] [address] [place] [address], [place] [address] Aug, [facility] [address] [id number] [address] [place] [address], [place] [address] Aug, [facility] [address] [id number] [address] [place] [address], [place] [address] Aug, [facility] [address] [id number] [address] [place] [address], [place] [address] Aug, [facility] [address] [id number] [address] [place] [address], [place] [address] Jul, [facility] [address] [id number] [address] [place] [address], [place] [address] Jul, [facility] [address] [id number] [address] [place] [address] Jul, [facility] [address] [id number] [address] [place] [address], [place] [address] Jul, [facility] [address] [id number] [address] [place] [address], [place] [address] Jun, [facility] [address] [id number] [address] [place] [address] Jun, [facility] [address] [id number] [facility] [place] [address] Jun, [facility] [address] [id number] [address] [place] [address], [place] [address] May, [facility] [address] [id number] [address] [place] [address], [place] [address] May, [facility] [address] [id number] [address] [place] [address], [place] [address] May, [facility] [address] [id number] [address] [place] [address], [place] [address] May, [facility] [address] [id number] [address] [place] [address], [place] [address] May, [facility] [address] [id number] [address] [place] [address], [place] [address] May, [facility] [address] [id number] [address] [place] [address], [place] [address] May, [facility] [address] [id number] [address] [place] [address], [place] [address] May, [facility] [address] [id number] [address] [place] [address], [place] [address] February, [facility] [address] [id number] [address] [place] [address], [place] [address] February, [facility] [address] [id number] [address] [place] [address], [place] [address] Jan, [facility] [address] [id number] [address] [place] [address], [place] [address] Jan, [facility] [address] [id number] [address] [place] [address], [place] [address] Jan, [facility] [address] [id number] [address] [place] [address], [place] [address] Jan, [facility] [address] [id number] [address] [place] [address], [place] [address] Nov, [facility] [address] [id number] [address] [place] [address], [place] [address] Nov, [facility] [address] [id number] [address] [place] [address], [place] [address] Nov, [facility] [address] [id number] [address] [place] [address], [place] [address] 18 Nov, 2013 [facility] [address] [id number] [address] [place] [address], [place] [address] Sep, [facility] [address] [id number] [address] [place] [address], [place] [address] Sep, [facility] [address] [id number] [address] [place] [address], [place] [address] Sep, [facility] [address] [id number] [address] [place] [address], [place] [address] Sep, [facility] [address] [id number] [address] [place] [address], [place] [address] Sep, [facility] [address] [id number] [address] [place] [address], [place] [address] Sep, [facility] [address] [id number] [address] [place] [address], [place] [address] Jul, [facility] [address] [id number] [address] [place] [address], [place] [address] Jul, [facility] [address] [id number] [address] [place] [address], [place] [address] 30 Jun, 2013 [facility] [address] [id number] [address] [place] [address], [place] [address] 23 Jun, 2013 [facility] [address] [id number] [address] [place] [address], [place] [address] 17 Jun, 2013 [facility] [address] [id number] [address] [place] [address], [place] [address] May, [facility] [address] [place] [id number] May, [facility] [address] [id number] [address] [place] [address], [place] [address] May, [facility] [address] [id number] [address] [place] [address], [place] [address] May, [facility] [address] [id number] [address] [place] [address], [place] [address] May, [facility] [address] [id number] [address] [place] [address], [place] [address] May, [facility] [address] [id number] [address] [place] [address], [place] [address] May, [facility] [address] [id number] [address] [place] [address], [place] [address] Apr, [facility] [address] [id number] [address] [place] [address], [place] [address] Apr, [facility] [address] [id number] [address] [place] [address], [place] [address] Apr, [facility] [address] [id number] [address] [place] [address], [place] [address] Apr, [facility] [address] [id number] [address] [place] [address], [place] [address] Mar, [facility] [address] [id number] [address] [place] [address], [place] [address] February, [facility] [address] [id number] [address] [place] [address], [place] [address] Jan, [facility] [address] [id number] [address] [place] [address], [place] [address] Dec, [facility] [address] [id number] [address] [place] [address], [place] [address] Dec, [facility] [address] [id number] [address] [place] [address], [place] [address] Dec, [facility] [address] [id number] [address] [place] [address], [place] [address] Nov, [facility] [address] [id number] [address] [place] [address], [place] [address] Nov, [facility] [address] [id number] [address] [place] [address], [place] [address] Nov, [facility] [address] [id number] [address] [place] [address], [place] [address] Oct, [facility] [address] [id number] [address] [place] [address], [place] [address] Oct, [facility] [address] [id number] [address] [place] [address], [place] [address] Sep, [facility] [address] [id number] [address] [place] [address], [place] [address] Sep, [facility] [address] [id number] [address] [place] [address], [place] [address] Sep, [facility] [address] [id number] [address] [place] [address], [place] [address] Sep, [facility] [address] [id number] [address] [place] [address], [place] [address] Sep, [facility] [address] [id number] [address] [place] [address], [place] [address] Sep, [facility] [address] [id number] [address] [place] [address], [place] [address] Aug, [facility] [address] [id number] [address] [place] [address], [place] [address] Aug, [facility] [address] [id number] [address] [place] [address], [place] [address] Aug, [facility] [address] [id number] [address] [place] [address], [place] [address] Aug, [facility] [address] [id number] [address] [place] [id number] Aug, [facility] [address] [id number] [address] [place] [address], [place] [address] Aug, [facility] [address] [id number] [address] [place] [address] Aug, [facility] [address] [id number] [address] [place] [address], [place] [address] Aug, [facility] [address] [id number] [address] [place] [address] Aug, [facility] [address] [id number] [address] [place] [address], [place] [address] Aug, [facility] [address] [id number] [address] [place] [address], [place] [address] Jul, [facility] [address] [id number] [address] [place] [address], [place] [address] Jul, [facility] [address] [id number] [address] [place] [address], [place] [address] Jul, [facility] [address] [id number] [address] [place] [address] Jul, [facility] [address] [id number] [address] [place] [address], [place] [address] Jul, [facility] [address] [id number] [address] [place] [address] Jul, [facility] [address] [id number] [address] [place] [address] Jul, [facility] [address] [id number] [address] [place] [address], [place] [address] 22 Jul, 2012 [facility] [address] [id number] [address] [place] [id number] 18 Jul, 2012 [facility] [address] [id number] [address] [place] [address], [place] [address] 17 Jul, 2012 [facility] [address] [id number] [address] [place] [address], [place] [address] 17 Jul, 2012 [facility] [address] [id number] [address] [place] [address], [place] [address] 17 Jul, 2012 [facility] [address] [id number] [address] [place] [address], [place] [address] 17 Jul, 2012 [facility] [address] [id number] [address] [place] [address], [place] [address] Jul, [facility] [address] [id number] [address] [place] [address], [place] [address] Jul, [facility] [address] [id number] [place] [address], [place] [address] 28 Jun, 2012 [facility] [address] [id number] [address] [place] [address], [place] [address] 24 Jun, 2012 [facility] [address] [id number] [address] [place] [address], [place] [address] 19 Jun, 2012 [facility] [address] [id number] [address] [place] [address], [place] [address] May, [facility] [address] [id number] [address] [place] [address], [place] [address] May, [facility] [address] [id number] [address] [place] [address], [place] [address] Mar, [facility] [address] [id number] [address] [place] [address], [place] [address] Mar, [facility] [address] [id number] [address] [place] [address], [place] [address] February, [facility] [address] [id number] [address] [place] [address], [place] [address] February, [facility] [address] [id number] [address] [place] [address], [place] [address] Nov, [facility] [address] [id number] [address] [place] [address], [place] [address] Oct, [facility] [address] [id number] [address] [place] [address], [place] [address] Oct, [facility] [address] [id number] [address] [place] [address], [place] [address] Oct, [facility] [address] [id number] [address] [place] [address], [place] [address] Aug, [facility] [address] [id number] [address] [place] [address], [place] [address] Jul, [facility] [address] [id number] [address] [place] [address], [place] [address] Sep, [facility] [address] [id number] [address] [place] [address], [place] [address] Aug, [facility] [address] [id number] [address] [place] [address], [place] [address] Jul, [facility] [address] [id number] [address] [place] [address], [place] [address] Apr, [facility] [address] [id number] [address] [place] [address], [place] [address] February, [facility] [address] [id number] [address] [place] [address], [place] [address] Sep, [facility] [address] [id number] [address] [place] [address], [place] [address] Sep, [facility] [address] [id number] [address] [place] [address], [place] [address] Sep, [facility] [address] [id number] [address] [place] [address], [place] [address] 15 Apr, 2009 [facility] [address] [id number] [address] [place] [address], [place] [address] Mar, [facility] [address] [id number] [address] [place] [address], [place] [address] February, [facility] [address] [id number] [address] [place] [address] Jan, [facility] [address] 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 - UTI 04/2018-05/14 018 Hospitalization History [facility] for dehydration 08/17/19
--- OUTSIDE RECORDS SUMMARY | 2020-05-02 14:55 | XMS REPORT ---
Author Author Michelle Dukes Doctor Organization [facility] Address Unknown Phone Unavailable Care Team Providers Care Senior Qa Automation Engineer Name Role Phone Migration, Doctor Unavailable Unavailable PROBLEMS Type Condition ICD9-CM Code [id number] Code Onset Dates Condition S tatus SNOMED Code Problem Lumbar neuritis M54.16 Active 1281 12846 Problem Thoracic neuritis M54.14 Active 58 369315 Problem Hypertension, benign I10 Active 81294165 Problem Cardiomyopathy I42.9 Active 64920 001 Problem Epileptic seizure, generalized G40.309 Active 90822077 Problem Excessive daytime sleepiness G47.19 A ctive 570424551207 Problem GERD (gastroesophageal reflux disease) K21.9 Active 041097384 Problem Panlobular emphysema J43.1 Active 9937400 Problem Intracranial injury, without loss of consciousness, subsequent encounter S06.9X0D Active 539437202 Problem Ventricular arrhythmia I49.9 Active 00357018 Problem Mood disorder F39 Active 719719 05 Problem Seasonal allergic rhinitis, unspecified trigger J3 0.2 Active 281540545 Problem Observed sleep apnea G47.30 Active 46666213 ALLERGIES No Information ENCOUNTERS Encounter Location Date Diagnosis [place] [address] [id number] [address] [place] [address] Mar, [facility] [address] [id number] [address] [place] [address] February, Epileptic seizure, generaliz ed G40.309 and Hypertension, benign I10 [facility] [address] [facility] [id number] [address] [place] [address] February, Epileptic seizure, generaliz ed G40.309 [facility] [address] [id number] [address] [place] [address] February, [facility] [address] [id number] [address] [place] [address] Jan, [place] [address] [facility] [id number] [address] [place] [address] Jan, [facility] [address] [facility] [id number] [address] [place] [address] Jan, [facility] [address] [facility] [id number] [address] [place] [address] Jan, Panlobular emphysema J43.1 [facility] [address] [facility] [id number] [address] [place] [address] Dec, Mood disorder F39 [facility] [address] [facility] [id number] [address] [place] [address] Nov, [facility] [address] [facility] [id number] [address] [place] [address] Oct, Cardiomyopathy I42.9 ; Hyper tension, benign I10 and Mood disorder F39 [facility] [address] [facility] [id number] [address] [place] [address] Oct, Epileptic seizure, generaliz ed G40.309 [facility] [address] [facility] [id number] [address] [place] [address] Oct, Panlobular emphysema J43.1 [facility] [address] [facility] [id number] [address] [place] [address] Oct, [facility] [address] [facility] [id number] [address] [place] [address] Oct, Panlobular emphysema J43.1 [facility] [address] [facility] [id number] [address] [place] [address] Sep, Unspecified convulsions R56. 9 [facility] [address] [facility] [id number] [address] [place] [address] Aug, Seizures R56.9 [facility] [address] [facility] [id number] [address] [place] [address] Aug, [facility] [address] [facility] [id number] [address] [place] [address] Aug, Hypertension, benign I10 [facility] [address] [id number] [address] [place] [address] Aug, [facility] [address] [facility] [id number] [address] [place] [address] Aug, [facility] [address] [facility] [id number] [address] [place] [address] Aug, [facility] [address] [facility] [id number] [address] [place] [address] Aug, Panlobular emphysema J43.1 ; Observed sleep apnea G47.30 and Excessive daytime sleepiness G47.19 [facility] [address] [facility] [id number] [address] [place] [address] Aug, [facility] [address] [facility] [id number] [address] [place] [address] Jun, Seizures R56.9 [facility] [address] [id number] [address] [place] [address] Jun, [facility] [address] [facility] [id number] [address] [place] [address] Jun, [facility] [address] [facility] [id number] [address] [place] [address] Jun, [facility] [address] [facility] [id number] [address] [place] [address] May, Acute right-sided low back p ain without sciatica M54.5 [facility] [address] [id number] [address] [place] [address] May, Acute right-sided low back p ain without sciatica M54.5 [facility] [address] [facility] [id number] [address] [place] [address] Apr, High risk medication use Z79 .899 ; Acute septic pulmonary embolism without acute cor pulmonale I26.90 and Cellulitis of leg without foot L03.119 [facility] [address] [facility] [id number] [address] [place] [address] Jan, [facility] [address] [facility] [id number] [address] [place] [address] Jan, Seizures R56.9 [facility] [address] [facility] [id number] [address] [place] [address] Dec, Seizures R56.9 [facility] [address] [facility] [id number] [address] [place] [address] Nov, Dysuria R30.0 and Urinary tr act infection without hematuria, site unspecified N39.0 [facility] [address] [facility] [id number] [address] [place] [address] Nov, [facility] [address] [facility] [id number] [address] [place] [address] Nov, Seizures R56.9 [facility] [address] [facility] [id number] [address] [place] [address] Sep, Seizures R56.9 [facility] [address] [facility] [id number] [address] [place] [address] Sep, Seasonal allergic rhinitis, unspecified trigger J30.2 [facility] [address] [facility] [id number] [address] [place] [address] Aug, Neck pain on left side M54.2 ; Mood disorder F39 and GERD (gastroesophageal reflux disease) K21.9 [facility] [address] [facility] [id number] [address] [place] [address] Aug, Seizures R56.9 [facility] [address] [facility] [id number] [address] [place] [address] Aug, Mood disorder F39 ; Neck dionicio n on left side M54.2 and Hypertension, benign I10 [facility] [address] [facility] [id number] [address] [place] [address] Aug, [place] [address] [id number] [address] [place] [address] Aug, [facility] [address] [id number] [address] [place] [address] Jul, [facility] [address] [id number] [address] [place] [address] Jul, Hypertension, benign I10 [facility] [address] [id number] [address] [place] [address] Jul, [facility] [address] [facility] [id number] [address] [place] [address] Jul, Thoracic neuritis M54.14 ; P ain of left leg M79.605 and Pain in right leg M79.604 [facility] [address] [facility] [id number] [address] [place] [address] Jun, Seizures R56.9 [facility] [address] [id number] [address] [place] [address] May, [facility] [address] [id number] [address] [place] [address] May, [facility] [address] [facility] [id number] [address] [place] [address] May, [facility] [address] [id number] [address] [place] [address] May, Seizures R56.9 [facility] [address] [id number] [address] [place] [address] May, [facility] [address] [id number] [address] [place] [address] May, Delirium R41.0 [facility] [address] [facility] [id number] [address] [place] [address] Apr, [facility] [address] [facility] [id number] [address] [place] [address] February, Ventricular arrhythmia I49.9 [place] [address] [facility] [id number] [address] [place] [address] February, [place] [address] [facility] [id number] [address] [place] [address] Dec, Thoracic neuritis M54.14 ; L umbar neuritis M54.16 and Epileptic seizure, generalized G40.309 [place] [address] [facility] [id number] [address] [place] [address] Sep, Epileptic seizure, generaliz ed G40.309 and Lumbar neuritis M54.16 [place] [address] [facility] [id number] [address] [place] [address] Aug, Thoracic neuritis M54.14 and Lumbar neuritis M54.16 [place] [address] [place] [id number] [address] [place] [address] Jun, [place] [address] [place] [id number] [place] [address] Jun, Abscess of leg, left L02.416 [place] [address] [facility] [id number] [address] [place] [address] May, Lumbar neuritis M54.16 ; Tho racic neuritis M54.14 ; Intracranial injury, without loss of consciousness, subsequent encounter S06.9X0D and Cardiomyopathy I42.9 [place] [address] [facility] [id number] [address] [place] [address] Apr, Lumbar neuritis M54.16 [place] [address] [facility] [id number] [address] [place] [address] Apr, [place] [address] [place] [id number] [address] [place] [address] Apr, Elevated liver enzymes R74.8 and Renal insufficiency N28.9 [place] [address] [facility] [id number] [address] [place] [address] Apr, Lumbar neuritis M54.16 ; Tho racic neuritis M54.14 ; Hypertension, benign I10 ; Cardiomyopathy I42.9 and Epileptic seizure, generalized G40.309 [facility] [address] [address] Mar, [facility] [address] [place] [id number] [place] [address] February, [facility] [address] [address] February, Lumbar neuritis M54.16 ; Tho racic neuritis M54.14 ; Hypertension, benign I10 ; Cardiomyopathy I42.9 and Epileptic seizure, generalized G40.309 [facility] [address] [address] Dec, [facility] [address] [address] Sep, Epigastric mass R19.06 [facility] [address] [address] Sep, Epigastric mass R19.06 [facility] [address] [address] Sep, [facility] [address] [address] Sep, Epigastric mass R19.06 [facility] [address] [address] Sep, Epigastric mass R19.06 and L roque mass R91.8 [facility] [address] [place] [id number] [place] [address] Jul, Shortness of breath R06.02 ; Dysuria R30.0 and Acute bronchitis, unspecified organism J20.9 [facility] [address] [place] [id number] [place] [address] Jul, [facility] [address] [address] Jun, Seizures R56.9 ; Thoracic ne uritis M54.14 ; Lumbar neuritis M54.16 and GERD (gastroesophageal reflux disease) K21.9 [facility] [address] [address] Jan, [facility] [address] [address] Sep, [facility] [address] [address] Sep, Intracranial injury, without loss of consciousness, subsequent encounter S06.9X0D ; Cardiomyopathy I42.9 ; GERD (gastroesophageal reflux disease) K21.9 ; Hypertension, benign I10 ; Thoracic neuritis M54.14 and Lumbar neuritis M54.16 [facility] [address] [address] Mar, [facility] [address] [address] Mar, Coronary atherosclerosis of unspecified type of vessel, [place] or graft 414.00 ; Unspecified essential hypertension 401.9 ; Thoracic or lumbosacral neuritis or radiculitis, unspecified 724.4 and Other convulsions 780.39 [place] [address] [address] Jan, [facility] [address] [address] Jan, [facility] [address] [address] Nov, [facility] [address] [address] Nov, [facility] [address] [address] Nov, [facility] [address] [address] Nov, [facility] [address] [id number] [address] [place] [address], [place] [address] Nov, 2014 [facility] [address] [id number] [address] [place] [address], [place] [address] Nov, 2014 [facility] [address] [id number] [address] [place] [address], [place] [address] Nov, 2014 [facility] [address] [id number] [address] [place] [address], [place] [address] Nov, 2014 [facility] [address] [id number] [address] [place] [address], [place] [address] Nov, 2014 [facility] [address] [id number] [address] [place] [address], [place] [address] Nov, 2014 [facility] [address] [id number] [address] [place] [address], [place] [address] Sep, [facility] [address] [id number] [address] [place] [address], [place] [address] Sep, [facility] [address] [id number] [address] [place] [address], [place] [address] Aug, [facility] [address] [id number] [address] [place] [address], [place] [address] Aug, [facility] [address] [id number] [address] [place] [address], [place] [address] Aug, [facility] [address] [id number] [address] [place] [address], [place] [address] Aug, [facility] [address] [id number] [address] [place] [address], [place] [address] Jul, [facility] [address] [id number] [address] [place] [address], [place] [address] Jul, [facility] [address] [id number] [address] [place] [address], [place] [address] Jul, [facility] [address] [id number] [address] [place] [address], [place] [address] Jul, [facility] [address] [id number] [address] [place] [address], [place] [address] Jun, [facility] [address] [id number] [address] [place] [address], [place] [address] Jun, [facility] [address] [id number] [address] [place] [address], [place] [address] Jun, [facility] [address] [id number] [address] [place] [address], [place] [address] May, [facility] [address] [id number] [address] [place] [address], [place] [address] May, [facility] [address] [id number] [address] [place] [address], [place] [address] May, [facility] [address] [id number] [address] [place] [address], [place] [address] May, [facility] [address] [id number] [address] [place] [address], [place] [address] May, [facility] [address] [id number] [address] [place] [address], [place] [address] May, [facility] [address] [id number] [address] [place] [address], [place] [address] May, [facility] [address] [id number] [address] [place] [address], [place] [address] May, [facility] [address] [id number] [address] [place] [address], [place] [address] February, [facility] [address] [id number] [address] [place] [address], [place] [address] February, [facility] [address] [id number] [address] [place] [address], [place] [address] Jan, [facility] [address] [id number] [address] [place] [address], [place] [address] Jan, [facility] [address] [id number] [address] [place] [address], [place] [address] Jan, [facility] [address] [id number] [address] [place] [address], [place] [address] Jan, [facility] [address] [id number] [address] [place] [address], [place] [address] Nov, [facility] [address] [id number] [address] [place] [address], [place] [address] Nov, [facility] [address] [id number] [address] [place] [address], [place] [address] Nov, [facility] [address] [id number] [address] [place] [address], [place] [address] Nov, [facility] [address] [id number] [address] [place] [address], [place] [address] Sep, [facility] [address] [id number] [address] [place] [address], [place] [address] Sep, [facility] [address] [id number] [address] [place] [address], [place] [address] Sep, [facility] [address] [id number] [address] [place] [address], [place] [address] Sep, [facility] [address] [id number] [address] [place] [address], [place] [address] Sep, [facility] [address] [id number] [address] [place] [address] Sep, [facility] [address] [id number] [address] [place] [address], [place] [address] Jul, [facility] [address] [id number] [address] [place] [address], [place] [address] Jul, [facility] [address] [id number] [address] [place] [address], [place] [address] 30 Jun, 2013 [facility] [address] [id number] [address] [place] [address], [place] [address] Jun, [facility] [address] [id number] [address] [place] [address], [place] [address] Jun, [facility] [address] [id number] [address] [place] [address], [place] [address] May, [facility] [address] [place] [id number] May, [facility] [address] [id number] [address] [place] [address], [place] [address] May, [facility] [address] [id number] [address] [place] [address], [place] [address] May, [facility] [address] [id number] [address] [place] [address], [place] [address] May, [facility] [address] [id number] [address] [place] [address], [place] [address] May, [facility] [address] [id number] [address] [place] [address], [place] [address] May, [facility] [address] [id number] [address] [place] [address], [place] [address] Apr, [facility] [address] [id number] [address] [place] [address], [place] [address] Apr, [facility] [address] [id number] [address] [place] [address], [place] [address] Apr, [facility] [address] [id number] [address] [place] [address], [place] [address] Apr, [facility] [address] [id number] [address] [place] [address], [place] [address] Mar, [facility] [address] [id number] [address] [place] [address], [place] [address] February, [facility] [address] [id number] [address] [place] [address], [place] [address] Jan, [facility] [address] [id number] [address] [place] [address], [place] [address] Dec, [facility] [address] [id number] [address] [place] [address], [place] [address] Dec, [facility] [address] [id number] [address] [place] [address], [place] [address] Dec, [facility] [address] [id number] [address] [place] [address], [place] [address] Nov, [facility] [address] [id number] [address] [place] [address], [place] [address] Nov, [facility] [address] [id number] [address] [place] [address], [place] [address] Nov, [facility] [address] [id number] [address] [place] [address], [place] [address] Oct, [facility] [address] [id number] [address] [place] [address], [place] [address] Oct, [facility] [address] [id number] [address] [place] [address], [place] [address] Sep, [facility] [address] [id number] [address] [place] [address], [place] [address] Sep, [facility] [address] [id number] [address] [place] [address], [place] [address] Sep, [facility] [address] [id number] [address] [place] [address], [place] [address] Sep, [facility] [address] [id number] [address] [place] [address], [place] [address] Sep, [facility] [address] [id number] [address] [place] [address], [place] [address] Sep, [facility] [address] [id number] [address] [place] [address], [place] [address] Aug, [facility] [address] [id number] [address] [place] [address], [place] [address] Aug, [facility] [address] [id number] [address] [place] [address], [place] [address] Aug, [facility] [address] [id number] [address] [place] [address], [place] [address] Aug, [facility] [address] [id number] [address] [place] [address], [place] [address] Aug, [facility] [address] [id number] [address] [place] [address], [place] [address] Aug, [facility] [address] [id number] [address] [place] [address], [place] [address] Aug, [facility] [address] [id number] [address] [place] [address], [place] [address] Aug, [facility] [address] [id number] [address] [place] [address], [place] [address] Aug, [facility] [address] [id number] [address] [place] [address], [place] [address] Aug, [facility] [address] [id number] [address] [place] [address], [place] [address] Jul, [facility] [address] [id number] [address] [place] [address], [place] [address] Jul, [facility] [address] [id number] [address] [place] [address], [place] [address] Jul, [facility] [address] [id number] [address] [place] [id number] Jul, [facility] [address] [id number] [address] [place] [address], [place] [address] Jul, [facility] [address] [id number] [address] [place] [address], [place] [address] Jul, [facility] [address] [id number] [address] [place] [address], [place] [address] Jul, [facility] [address] [id number] [address] [place] [address], [place] [address] Jul, [facility] [address] [id number] [address] [place] [address], [place] [address] 18 Jul, 2012 [facility] [address] [id number] [address] [place] [address], [place] [address] Jul, [facility] [address] [id number] [address] [place] [address], [place] [address] Jul, [facility] [address] [id number] [address] [place] [address], [place] [address] Jul, [facility] [address] [id number] [address] [place] [address], [place] [address] Jul, [facility] [address] [id number] [address] [place] [address], [place] [address] Jul, [facility] [address] [id number] [address] [place] [address], [place] [address] Jul, [facility] [address] [id number] [address] [place] [address], [place] [address] 28 Jun, 2012 [facility] [address] [id number] [address] [place] [address], [place] [address] 24 Jun, 2012 [facility] [address] [id number] [address] [place] [address], [place] [address] Jun, [facility] [address] [id number] [address] [place] [address], [place] [address] May, [facility] [address] [id number] [address] [place] [address], [place] [address] May, [facility] [address] [id number] [address] [place] [address], [place] [address] Mar, [facility] [address] [id number] [address] [place] [address], [place] [address] Mar, [facility] [address] [id number] [address] [place] [address], [place] [address] February, [facility] [address] [id number] [address] [place] [address], [place] [address] February, [facility] [address] [id number] [address] [place] [address], [place] [address] Nov, [facility] [address] [id number] [address] [place] [address], [place] [address] Oct, [facility] [address] [id number] [address] [place] [address], [place] [address] Oct, [facility] [address] [id number] [address] [place] [address], [place] [address] Oct, [facility] [address] [id number] [address] [place] [address], [place] [address] Aug, [facility] [address] [id number] [address] [place] [address], [place] [address] Jul, [facility] [address] [id number] [address] [place] [address], [place] [address] Sep, [facility] [address] [id number] [address] [place] [address], [place] [address] Aug, [facility] [address] [id number] [address] [place] [address], [place] [address] Jul, [facility] [address] [id number] [address] [place] [address], [place] [address] Apr, [facility] [address] [id number] [address] [place] [address], [place] [address] February, [facility] [address] [id number] [address] [place] [address], [place] [address] Sep, [facility] [address] [id number] [address] [place] [address], [place] [address] Sep, [facility] [address] [id number] [address] [place] [address], [place] [address] Sep, [facility] [address] [id number] [address] [place] [address] Apr, [facility] [address] [facility] [id number] [address] [place] [address] Mar, [facility] [address] [facility] [id number] [address] [place] [address] February, [facility] [address] [facility] [id number] [address] [place] [address] Jan, [facility] [address] [facility] [id number] [address] [place] [address] Jul, IMMUNIZATIONS No Known Immunizations SOCIAL HISTORY Never Assessed REASON FOR VISIT PLAN OF CARE VITAL SIGNS Height 63 in 2013-05-21 Weight 206.62 lbs 2013-05-21 Temperature 98.5 degrees Fahrenheit 2013-05-21 Heart Rate 88 bpm 2013-05-21 Respiratory Rate 22 2013-05-21 Blood pressure systolic 138 mmHg 2013-05-21 Blood pressure diastolic 76 mmHg 2013-05-21 MEDICATIONS Unknown Medications RESULTS No Results PROCEDURES Procedure Date Ordered Result Body Site TTE W/DOPPLER, COMPLETE May 21, 2013 INSTRUCTIONS MEDICATIONS ADMINISTERED No Known Medications MEDICAL (GENERAL) HISTORY Type Description Date Medical History 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
--- OUTSIDE RECORDS SUMMARY | 2020-05-02 14:55 | XMS REPORT ---
Author Author Michelle LANGE Organization [facility] Address [address] [place] [address] Care Team Providers Care Critical Care Cns Name Role Phone TRACEE LANGE Unavailable PROBLEMS Type Condition ICD9-CM Code XMH47-XD Code Onset Dates Condition S tatus SNOMED Code Problem Lumbar neuritis M54.16 Active 1281 16127 Problem Thoracic neuritis M54.14 Active 58 002375 Problem Hypertension, benign I10 Active 58902700 Problem Cardiomyopathy I42.9 Active 48208 001 Problem Epileptic seizure, generalized G40.309 Active 01224390 Problem Excessive daytime sleepiness G47.19 A ctive 928929297629 Problem GERD (gastroesophageal reflux disease) K21.9 Active 527752002 Problem Panlobular emphysema J43.1 Active 9976231 Problem Intracranial injury, without loss of consciousness, subsequent encounter S06.9X0D Active 539268394 Problem Ventricular arrhythmia I49.9 Active 22163465 Problem Mood disorder F39 Active 583649 05 Problem Seasonal allergic rhinitis, unspecified trigger J3 0.2 Active 243947741 Problem Observed sleep apnea G47.30 Active 17191413 ALLERGIES No Information ENCOUNTERS Encounter Location Date Diagnosis [facility] [address] [facility] [id number] [address] [place] [address] February, [facility] [address] [facility] [id number] [address] [place] [address] February, [facility] [address] [facility] [id number] [address] [place] [address] Jan, [facility] [address] [facility] [id number] [address] [place] [address] Jan, [facility] [address] [facility] [id number] [address] [place] [address] Jan, [facility] [address] [facility] [id number] [address] [place] [address] Jan, Panlobular emphysema J43.1 [facility] [address] [facility] [id number] [address] [place] [address] Dec, Mood disorder F39 [facility] [address] [facility] [id number] [address] [place] [address] Nov, [facility] [address] [facility] [id number] [address] [place] [address] Oct, Cardiomyopathy I42.9 ; Hyper tension, benign I10 and Mood disorder F39 [facility] [address] [facility] [id number] [address] [place] [address] Oct, Epileptic seizure, generaliz ed G40.309 [facility] [address] [facility] [id number] [address] [place] [address] Oct, Panlobular emphysema J43.1 [facility] [address] [facility] [id number] [address] [place] [address] Oct, [facility] [address] [facility] [id number] [address] [place] [address] Oct, Panlobular emphysema J43.1 [facility] [address] [facility] [id number] [address] [place] [address] Sep, Unspecified convulsions R56. 9 [facility] [address] [facility] [id number] [address] [place] [address] Aug, Seizures R56.9 [facility] [address] [facility] [id number] [address] [place] [address] Aug, [facility] [address] [facility] [id number] [address] [place] [address] Aug, Hypertension, benign I10 [facility] [address] [facility] [id number] [address] [place] [address] Aug, [facility] [address] [facility] [id number] [address] [place] [address] Aug, [facility] [address] [id number] [address] [place] [address] Aug, [facility] [address] [facility] [id number] [address] [place] [address] Aug, Panlobular emphysema J43.1 ; Observed sleep apnea G47.30 and Excessive daytime sleepiness G47.19 [facility] [address] [id number] [address] [place] [address] Aug, [facility] [address] [facility] [id number] [address] [place] [address] Jun, Seizures R56.9 [facility] [address] [facility] [id number] [address] [place] [address] Jun, [facility] [address] [facility] [id number] [address] [place] [address] Jun, [facility] [address] [id number] [address] [place] [address] Jun, [facility] [address] [facility] [id number] [address] [place] [address] May, Acute right-sided low back p ain without sciatica M54.5 [facility] [address] [facility] [id number] [address] [place] [address] May, Acute right-sided low back p ain without sciatica M54.5 [facility] [address] [facility] [id number] [address] [place] [address] Apr, High risk medication use Z79 .899 ; Acute septic pulmonary embolism without acute cor pulmonale I26.90 and Cellulitis of leg without foot L03.119 [facility] [address] [facility] [id number] [address] [place] [address] Jan, [facility] [address] [facility] [id number] [address] [place] [address] Jan, Seizures R56.9 [facility] [address] [facility] [id number] [address] [place] [address] Dec, Seizures R56.9 [facility] [address] [facility] [id number] [address] [place] [address] Nov, Dysuria R30.0 and Urinary tr act infection without hematuria, site unspecified N39.0 [facility] [address] [facility] [id number] [address] [place] [address] Nov, [facility] [address] [facility] [id number] [address] [place] [address] Nov, Seizures R56.9 [facility] [address] [place] [id number] [address] [place] [address] Sep, Seizures R56.9 [facility] [address] [address] Sep, Seasonal allergic rhinitis, unspecified trigger J30.2 [facility] [address] [facility] [id number] [address] [place] [address] Aug, Neck pain on left side M54.2 ; Mood disorder F39 and GERD (gastroesophageal reflux disease) K21.9 [facility] [address] [facility] [id number] [address] [place] [address] Aug, Seizures R56.9 [facility] [address] [facility] [id number] [address] [place] [address] Aug, Mood disorder F39 ; Neck dionicio n on left side M54.2 and Hypertension, benign I10 [facility] [address] [facility] [id number] [address] [place] [address] Aug, [facility] [address] [facility] [id number] [address] [place] [address] Aug, [facility] [address] [facility] [id number] [address] [place] [address] Jul, [facility] [address] [id number] [address] [place] [address] Jul, Hypertension, benign I10 [facility] [address] [id number] [address] [place] [address] Jul, [facility] [address] [facility] [id number] [address] [place] [address] Jul, Thoracic neuritis M54.14 ; P ain of left leg M79.605 and Pain in right leg M79.604 [facility] [address] [id number] [address] [place] [address] Jun, Seizures R56.9 [facility] [address] [id number] [address] [place] [address] May, [facility] [address] [id number] [address] [place] [phone] May, [facility] [address] [id number] [address] [place] [address] May, [facility] [address] [id number] [address] [place] [address] May, Seizures R56.9 [facility] [address] [id number] [address] [place] [address] May, [facility] [address] [id number] [address] [place] [address] May, Delirium R41.0 [facility] [address] [id number] [address] [place] [address] Apr, [facility] [address] [id number] [address] [place] [address] February, Ventricular arrhythmia I49.9 [facility] [address] [id number] [address] [place] [address] February, [facility] [address] [facility] [id number] [address] [place] [address] Dec, Thoracic neuritis M54.14 ; L umbar neuritis M54.16 and Epileptic seizure, generalized G40.309 [facility] [address] [facility] [id number] [address] [place] [address] Sep, Epileptic seizure, generaliz ed G40.309 and Lumbar neuritis M54.16 [facility] [address] [place] [id number] [address] [place] [address] Aug, Thoracic neuritis M54.14 and Lumbar neuritis M54.16 [facility] [address] [place] [id number] [address] [place] [address] Jun, [place] [address] [address] Jun, Abscess of leg, left L02.416 [place] [address] [place] [id number] [address] [place] [address] May, Lumbar neuritis M54.16 ; Tho racic neuritis M54.14 ; Intracranial injury, without loss of consciousness, subsequent encounter S06.9X0D and Cardiomyopathy I42.9 [place] [id number] [place] [address] Apr, Lumbar neuritis M54.16 [place] [address] [place] [id number] [address] [place] [address] Apr, [place] [address] [place] [id number] [address] [place] [address] Apr, Elevated liver enzymes R74.8 and Renal insufficiency N28.9 [facility] [address] [place] [id number] [address] [place] [address] Apr, Lumbar neuritis M54.16 ; Tho racic neuritis M54.14 ; Hypertension, benign I10 ; Cardiomyopathy I42.9 and Epileptic seizure, generalized G40.309 [facility] [address] [place] [id number] [address] [place] [address] Mar, [place] [address] [address] February, [place] [address] [address] February, Lumbar neuritis M54.16 ; Tho racic neuritis M54.14 ; Hypertension, benign I10 ; Cardiomyopathy I42.9 and Epileptic seizure, generalized G40.309 [place] [address] [address] Dec, [facility] [address] [address] Sep, Epigastric mass R19.06 [place] [address] [address] Sep, Epigastric mass R19.06 [place] [address] [address] Sep, [place] [address] [address] Sep, Epigastric mass R19.06 [place] [address] [address] Sep, Epigastric mass R19.06 and L roque mass R91.8 [facility] [address] [address] Jul, Shortness of breath R06.02 ; Dysuria R30.0 and Acute bronchitis, unspecified organism J20.9 [place] [address] [address] Jul, [place] [address] [address] Jun, Seizures R56.9 ; Thoracic ne uritis M54.14 ; Lumbar neuritis M54.16 and GERD (gastroesophageal reflux disease) K21.9 [facility] [address] [address] Jan, [facility] [address] [address] Sep, [facility] [address] [address] Sep, Intracranial injury, without loss of consciousness, subsequent encounter S06.9X0D ; Cardiomyopathy I42.9 ; GERD (gastroesophageal reflux disease) K21.9 ; Hypertension, benign I10 ; Thoracic neuritis M54.14 and Lumbar neuritis M54.16 [facility] [address] [address] Mar, [facility] [address] [address] Mar, Coronary atherosclerosis of unspecified type of vessel, [place] or graft 414.00 ; Unspecified essential hypertension 401.9 ; Thoracic or lumbosacral neuritis or radiculitis, unspecified 724.4 and Other convulsions 780.39 [facility] [address] [address] Jan, [facility] [address] [address] Jan, [facility] [address] [address] Nov, [facility] [address] [address] Nov, [facility] [address] [address] Nov, [facility] [address] [address] Nov, [facility] [address] [address] Nov, [facility] [address] [address] Nov, [facility] [address] [id number] [address] [place] [address], [place] [address] Nov, 2014 [facility] [address] [id number] [address] [place] [address], [place] [address] Nov, 2014 [facility] [address] [id number] [address] [place] [address], [place] [address] Nov, 2014 [facility] [address] [id number] [address] [place] [address], [place] [address] Nov, 2014 [facility] [address] [id number] [address] [place] [address], [place] [address] Sep, [facility] [address] [id number] [address] [place] [address], [place] [address] Sep, [facility] [address] [id number] [address] [place] [address], [place] [address] Aug, [facility] [address] [id number] [address] [place] [address], [place] [address] Aug, [facility] [address] [id number] [address] [place] [address], [place] [address] Aug, [facility] [address] [id number] [address] [place] [address], [place] [address] Aug, [facility] [address] [id number] [address] [place] [address], [place] [address] Jul, [facility] [address] [id number] [address] [place] [address] Jul, [facility] [address] [id number] [address] [place] [address], [place] [address] Jul, [facility] [address] [id number] [address] [place] [address], [place] [address] Jul, [facility] [address] [id number] [address] [place] [address], [place] [address] Jun, [facility] [address] [id number] [facility] [place] [address] Jun, [facility] [address] [id number] [address] [place] [address], [place] [address] Jun, [facility] [address] [id number] [address] [place] [address], [place] [address] May, [facility] [address] [id number] [address] [place] [address], [place] [address] May, [facility] [address] [id number] [address] [place] [address], [place] [address] May, [facility] [address] [id number] [address] [place] [address], [place] [address] May, [facility] [address] [id number] [address] [place] [address], [place] [address] May, [facility] [address] [id number] [address] [place] [address], [place] [address] May, [facility] [address] [id number] [address] [place] [address], [place] [address] May, [facility] [address] [id number] [address] [place] [address], [place] [address] May, [facility] [address] [id number] [address] [place] [address], [place] [address] February, [facility] [address] [id number] [address] [place] [address], [place] [address] February, [facility] [address] [id number] [address] [place] [address], [place] [address] Jan, [facility] [address] [id number] [address] [place] [address], [place] [address] Jan, [facility] [address] [id number] [address] [place] [address], [place] [address] Jan, [facility] [address] [id number] [address] [place] [address], [place] [address] Jan, [facility] [address] [id number] [address] [place] [address], [place] [address] Nov, [facility] [address] [id number] [address] [place] [address], [place] [address] Nov, [facility] [address] [id number] [address] [place] [address], [place] [address] Nov, [facility] [address] [id number] [address] [place] [address], [place] [address] Nov, [facility] [address] [id number] [address] [place] [address], [place] [address] Sep, [facility] [address] [id number] [address] [place] [address], [place] [address] Sep, [facility] [address] [id number] [address] [place] [address], [place] [address] Sep, [facility] [address] [id number] [address] [place] [address], [place] [address] 07 Sep, 2013 [facility] [address] [id number] [address] [place] [address], [place] [address] 06 Sep, 2013 [facility] [address] [id number] [address] [place] [address] 06 Sep, 2013 [facility] [address] [id number] [address] [place] [address] Jul, [facility] [address] [id number] [address] [place] [address] 11 Jul, 2013 [facility] [address] [id number] [address] [place] [address], [place] [address] 30 Jun, 2013 [facility] [address] [id number] [address] [place] [address] 23 Jun, 2013 [facility] [address] [id number] [address] [place] [address] 17 Sep2012 [facility] [address] [id number] [address] [place] [address] May, [facility] [address] [place] [id number] May, [facility] [address] [id number] [address] [place] [address], [place] [address] May, [facility] [address] [id number] [address] [place] [address], [place] [address] May, [facility] [address] [id number] [address] [place] [address], [place] [address] May, [facility] [address] [id number] [address] [place] [address], [place] [address] May, [facility] [address] [id number] [address] [place] [address], [place] [address] May, [facility] [address] [id number] [address] [place] [address], [place] [address] Apr, [facility] [address] [id number] [address] [place] [address], [place] [address] Apr, [facility] [address] [id number] [address] [place] [address], [place] [address] Apr, [facility] [address] [id number] [address] [place] [address], [place] [address] Apr, [facility] [address] [id number] [address] [place] [address], [place] [address] Mar, [facility] [address] [id number] [address] [place] [address], [place] [address] February, [facility] [address] [id number] [address] [place] [address], [place] [address] Jan, [facility] [address] [id number] [address] [place] [address], [place] [address] Dec, [facility] [address] [id number] [address] [place] [address], [place] [address] Dec, [facility] [address] [id number] [address] [place] [address], [place] [address] Dec, [facility] [address] [id number] [address] [place] [address], [place] [address] Nov, [facility] [address] [id number] [address] [place] [address], [place] [address] Nov, [facility] [address] [id number] [address] [place] [address], [place] [address] Nov, [facility] [address] [id number] [address] [place] [address], [place] [address] Oct, [facility] [address] [id number] [address] [place] [address], [place] [address] Oct, [facility] [address] [id number] [address] [place] [address], [place] [address] Sep, [facility] [address] [id number] [address] [place] [address], [place] [address] Sep, [facility] [address] [id number] [address] [place] [address], [place] [address] Sep, [facility] [address] [id number] [address] [place] [address], [place] [address] Sep, [facility] [address] [id number] [address] [place] [address], [place] [address] Sep, [facility] [address] [id number] [address] [place] [address], [place] [address] Sep, [facility] [address] [id number] [address] [place] [address], [place] [address] Aug, [facility] [address] [id number] [address] [place] [address], [place] [address] Aug, [facility] [address] [id number] [address] [place] [address], [place] [address] Aug, [facility] [address] [id number] [address] [place] [address], [place] [address] Aug, [facility] [address] [id number] [address] [place] [address], [place] [address] Aug, [facility] [address] [id number] [address] [place] [address], [place] [address] Aug, [facility] [address] [id number] [address] [place] [address], [place] [address] Aug, [facility] [address] [id number] [address] [place] [address], [place] [address] Aug, [facility] [address] [id number] [address] [place] [address], [place] [address] Aug, [facility] [address] [id number] [address] [place] [address], [place] [address] Aug, [facility] [address] [id number] [address] [place] [address], [place] [address] Jul, [facility] [address] [id number] [address] [place] [address] Jul, [facility] [address] [id number] [address] [place] [address], [place] [address] Jul, [facility] [address] [id number] [address] [place] [address] Jul, [facility] [address] [id number] [address] [place] [address] Jul, [facility] [address] [id number] [address] [place] [address] Jul, [facility] [address] [id number] [address] [place] [address], [place] [address] Jul, [facility] [address] [id number] [address] [place] [id number] Jul, [facility] [address] [id number] [address] [place] [id number] Jul, [facility] [address] [id number] [address] [place] [id number] Jul, [facility] [address] [id number] [address] [place] [address], [place] [address] Jul, [facility] [address] [id number] [address] [place] [address], [place] [address] Jul, [facility] [address] [id number] [address] [place] [address], [place] [address] Jul, [facility] [address] [id number] [address] [place] [address], [place] [address] Jul, [facility] [address] [id number] [address] [place] [address], [place] [address] Jul, [facility] [address] [id number] [address] [place] [address], [place] [address] Jun, [facility] [address] [id number] [address] [place] [address], [place] [address] 24 Jun, 2012 [facility] [address] [id number] [address] [place] [address], [place] [address] Jun, [facility] [address] [id number] [address] [place] [address], [place] [address] May, [facility] [address] [id number] [address] [place] [address], [place] [address] May, [facility] [address] [id number] [address] [place] [address], [place] [address] Mar, [facility] [address] [id number] [address] [place] [address], [place] [address] Mar, [facility] [address] [id number] [address] [place] [address], [place] [address] February, [facility] [address] [id number] [address] [place] [address], [place] [address] February, [facility] [address] [id number] [address] [place] [address], [place] [address] Nov, [facility] [address] [id number] [address] [place] [address], [place] [address] 15 Oct, 2011 [facility] [address] [id number] [address] [place] [address], [place] [address] Oct, [facility] [address] [id number] [address] [place] [address], [place] [address] Oct, [facility] [address] [id number] [address] [place] [address], [place] [address] Aug, [facility] [address] [id number] [address] [place] [address], [place] [address] Jul, [facility] [address] [id number] [address] [place] [address], [place] [address] Sep, [facility] [address] [id number] [address] [place] [address], [place] [address] Aug, [facility] [address] [id number] [address] [place] [address], [place] [address] Jul, [facility] [address] [id number] [address] [place] [address], [place] [address] Apr, [facility] [address] [id number] [address] [place] [address], [place] [address] February, [facility] [address] [id number] [address] [place] [address], [place] [address] Sep, [facility] [address] [id number] [address] [place] [address], [place] [address] 30 Sep, 2009 [facility] [address] [id number] [address] [place] [address], [place] [address] Sep, [facility] [address] [id number] [address] [place] [address], [place] [address] 15 Apr, 2009 [facility] [address] [id number] [address] [place] [address], [place] [address] Mar, [facility] [address] [id number] [address] [place] [address] [address] February, [facility] [address] [facility] [id number] [address] [place] [phone] Jan, [facility] [address] [facility] [id number] [address] [place] [id number] Jul, IMMUNIZATIONS No Known Immunizations SOCIAL HISTORY Never Assessed REASON FOR VISIT PLAN OF CARE VITAL SIGNS Height 63 in 2013-05-04 Weight 206.4 lbs 2013-05-04 Temperature 98.9 degrees Fahrenheit 2013-05-04 Heart Rate 94 bpm 2013-05-04 Respiratory Rate 20 2013-05-04 Blood pressure systolic 148 mmHg 2013-05-04 Blood pressure diastolic 84 mmHg 2013-05-04 MEDICATIONS Unknown Medications RESULTS No Results PROCEDURES No Known procedures INSTRUCTIONS MEDICATIONS ADMINISTERED No Known Medications MEDICAL (GENERAL) HISTORY Type Description Date Medical History Post-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
--- OUTSIDE RECORDS SUMMARY | 2020-05-02 14:55 | XMS REPORT ---
Author Author Michelle LANGE Organization [facility] Address [address] [place] [address] Care Team Providers Care Camouflage Specialist Name Role Phone TRACEE LANGE Unavailable PROBLEMS Type Condition ICD9-CM Code AXG68-GL Code Onset Dates Condition S tatus SNOMED Code Problem Lumbar neuritis M54.16 Active 1281 94117 Problem Thoracic neuritis M54.14 Active 58 000054 Problem Hypertension, benign I10 Active 99466297 Problem Cardiomyopathy I42.9 Active 76021 001 Problem Epileptic seizure, generalized G40.309 Active 78436059 Problem Excessive daytime sleepiness G47.19 A ctive [id number] Problem GERD (gastroesophageal reflux disease) K21.9 Active 205400090 Problem Panlobular emphysema J43.1 Active 7611721 Problem Intracranial injury, without loss of consciousness, subsequent encounter S06.9X0D Active 609885710 Problem Ventricular arrhythmia I49.9 Active 82671351 Problem Mood disorder F39 Active 027436 05 Problem Seasonal allergic rhinitis, unspecified trigger J3 0.2 Active 359762412 Problem Observed sleep apnea G47.30 Active [id number] ALLERGIES No Information ENCOUNTERS Encounter Location Date Diagnosis [facility] [address] [facility] [id number] [address] [place] [phone] February, [facility] [address] [facility] [id number] [address] [place] [phone] February, [facility] [address] [facility] [id number] [address] [place] [phone] Jan, [facility] [address] [facility] [id number] [address] [place] [phone] Jan, [facility] [address] [facility] [id number] [address] [place] [phone] Jan, [facility] [address] [facility] [id number] [address] [place] [address] Jan, Panlobular emphysema J43.1 [facility] [address] [facility] [id number] [address] [place] [phone] Dec, Mood disorder F39 [facility] [address] [facility] [id number] [address] [place] [phone] Nov, [facility] [address] [facility] [id number] [address] [place] [address] Oct, Cardiomyopathy I42.9 ; Hyper tension, benign I10 and Mood disorder F39 [facility] [address] [facility] [id number] [address] [place] [phone] Oct, Epileptic seizure, generaliz ed G40.309 [facility] [address] [facility] [id number] [address] [place] [phone] Oct, Panlobular emphysema J43.1 [facility] [address] [facility] [id number] [address] [place] [phone] Oct, [facility] [address] [facility] [id number] [address] [place] [phone] Oct, Panlobular emphysema J43.1 [facility] [address] [facility] [id number] [address] [place] [phone] Sep, Unspecified convulsions R56. 9 [facility] [address] [facility] [id number] [address] [place] [phone] Aug, Seizures R56.9 [facility] [address] [facility] [id number] [address] [place] [phone] Aug, [facility] [address] [facility] [id number] [address] [place] [phone] Aug, Hypertension, benign I10 [facility] [address] [facility] [id number] [address] [place] [phone] Aug, [facility] [address] [facility] [id number] [address] [place] [phone] Aug, [facility] [address] [id number] [address] [place] [phone] Aug, [facility] [address] [facility] [id number] [address] [place] [phone] Aug, Panlobular emphysema J43.1 ; Observed sleep apnea G47.30 and Excessive daytime sleepiness G47.19 [facility] [address] [id number] [address] [place] [phone] Aug, [facility] [address] [facility] [id number] [address] [place] [phone] Jun, Seizures R56.9 [facility] [address] [facility] [id number] [address] [place] [phone] Jun, [facility] [address] [facility] [id number] [address] [place] [phone] Jun, [facility] [address] [id number] [address] [place] [phone] Jun, [facility] [address] [facility] [id number] [address] [place] [phone] May, Acute right-sided low back p ain without sciatica M54.5 [facility] [address] [facility] [id number] [address] [place] [address] May, Acute right-sided low back p ain without sciatica M54.5 [facility] [address] [facility] [id number] [address] [place] [address] Apr, High risk medication use Z79 .899 ; Acute septic pulmonary embolism without acute cor pulmonale I26.90 and Cellulitis of leg without foot L03.119 [facility] [address] [facility] [id number] [address] [place] [phone] Jan, [facility] [address] [facility] [id number] [address] [place] [phone] Jan, Seizures R56.9 [facility] [address] [facility] [id number] [address] [place] [phone] Dec, Seizures R56.9 [facility] [address] [facility] [id number] [address] [place] [phone] Nov, Dysuria R30.0 and Urinary tr act infection without hematuria, site unspecified N39.0 [facility] [address] [facility] [id number] [address] [place] [phone] Nov, [facility] [address] [facility] [id number] [address] [place] [phone] Nov, Seizures R56.9 [facility] [address] [place] [id number] [address] [place] [phone] Sep, Seizures R56.9 [facility] [address] [address] Sep, Seasonal allergic rhinitis, unspecified trigger J30.2 [facility] [address] [facility] [id number] [address] [place] [phone] Aug, Neck pain on left side M54.2 ; Mood disorder F39 and GERD (gastroesophageal reflux disease) K21.9 [facility] [address] [facility] [id number] [address] [place] [phone] Aug, Seizures R56.9 [facility] [address] [facility] [id number] [address] [place] [phone] Aug, Mood disorder F39 ; Neck dionicio n on left side M54.2 and Hypertension, benign I10 [facility] [address] [facility] [id number] [address] [place] [phone] Aug, [facility] [address] [facility] [id number] [address] [place] [phone] Aug, [facility] [address] [facility] [id number] [address] [place] [phone] Jul, [facility] [address] [id number] [address] [place] [phone] Jul, Hypertension, benign I10 [facility] [address] [id number] [address] [place] [phone] Jul, [facility] [address] [facility] [id number] [address] [place] [address] Jul, Thoracic neuritis M54.14 ; P ain of left leg M79.605 and Pain in right leg M79.604 [facility] [address] [id number] [address] [place] [phone] Jun, Seizures R56.9 [facility] [address] [id number] [address] [place] [phone] May, [facility] [address] [id number] [address] [place] [phone] May, [facility] [address] [id number] [address] [place] [phone] May, [facility] [address] [id number] [address] [place] [address] May, Seizures R56.9 [facility] [address] [id number] [address] [place] [phone] May, [facility] [address] [id number] [address] [place] [address] May, Delirium R41.0 [facility] [address] [id number] [address] [place] [phone] Apr, [facility] [address] [id number] [address] [place] [address] February, Ventricular arrhythmia I49.9 [facility] [address] [id number] [address] [place] [phone] February, [facility] [address] [facility] [id number] [address] [place] [phone] Dec, Thoracic neuritis M54.14 ; L umbar neuritis M54.16 and Epileptic seizure, generalized G40.309 [facility] [address] [facility] [id number] [address] [place] [address] Sep, Epileptic seizure, generaliz ed G40.309 and Lumbar neuritis M54.16 [facility] [address] [place] [id number] [address] [place] [address] Aug, Thoracic neuritis M54.14 and Lumbar neuritis M54.16 [facility] [address] [place] [id number] [address] [place] [phone] Jun, [place] [address] [address] Jun, Abscess of leg, left L02.416 [place] [address] [place] [id number] [address] [place] [address] May, Lumbar neuritis M54.16 ; Tho racic neuritis M54.14 ; Intracranial injury, without loss of consciousness, subsequent encounter S06.9X0D and Cardiomyopathy I42.9 [place] [id number] [place] [address] Apr, Lumbar neuritis M54.16 [place] [address] [place] [id number] [address] [place] [phone] Apr, [place] [address] [place] [id number] [address] [place] [address] Apr, Elevated liver enzymes R74.8 and Renal insufficiency N28.9 [facility] [address] [place] [id number] [address] [place] [address] Apr, Lumbar neuritis M54.16 ; Tho racic neuritis M54.14 ; Hypertension, benign I10 ; Cardiomyopathy I42.9 and Epileptic seizure, generalized G40.309 [facility] [address] [place] [id number] [address] [place] [address] Mar, [place] [address] [address] February, [place] [address] [address] February, Lumbar neuritis M54.16 ; Tho racic neuritis M54.14 ; Hypertension, benign I10 ; Cardiomyopathy I42.9 and Epileptic seizure, generalized G40.309 [place] [address] [address] Dec, [facility] [address] [address] Sep, Epigastric mass R19.06 [place] [address] [address] Sep, Epigastric mass R19.06 [place] [address] [address] Sep, [place] [address] [address] Sep, Epigastric mass R19.06 [place] [address] [address] Sep, Epigastric mass R19.06 and L roque mass R91.8 [facility] [address] [address] Jul, Shortness of breath R06.02 ; Dysuria R30.0 and Acute bronchitis, unspecified organism J20.9 [place] [address] [address] Jul, [place] [address] [address] Jun, Seizures R56.9 ; Thoracic ne uritis M54.14 ; Lumbar neuritis M54.16 and GERD (gastroesophageal reflux disease) K21.9 [facility] [address] [address] Jan, [facility] [address] [address] Sep, [facility] [address] [address] Sep, Intracranial injury, without loss of consciousness, subsequent encounter S06.9X0D ; Cardiomyopathy I42.9 ; GERD (gastroesophageal reflux disease) K21.9 ; Hypertension, benign I10 ; Thoracic neuritis M54.14 and Lumbar neuritis M54.16 [facility] [address] [address] Mar, [facility] [address] [address] Mar, Coronary atherosclerosis of unspecified type of vessel, yurok or graft 414.00 ; Unspecified essential hypertension 401.9 ; Thoracic or lumbosacral neuritis or radiculitis, unspecified 724.4 and Other convulsions 780.39 [facility] [address] [address] Jan, [facility] [address] [address] Jan, [facility] [address] [address] Nov, [facility] [address] [address] Nov, [facility] [address] [address] Nov, [facility] [address] [address] Nov, [facility] [address] [address] Nov, [facility] [address] [address] Nov, [facility] [address] [id number] [address] [place] [address], [place] [address] Nov, 2014 [facility] [address] [id number] [address] [place] [address], [place] [address] Nov, 2014 [facility] [address] [id number] [address] [place] [address], [place] [address] Nov, 2014 [facility] [address] [id number] [address] [place] [address], [place] [address] Nov, 2014 [facility] [address] [id number] [address] [place] [address], [place] [address] Sep, [facility] [address] [id number] [address] [place] [address], [place] [address] Sep, [facility] [address] [id number] [address] [place] [address], [place] [address] Aug, [facility] [address] [id number] [address] [place] [address], [place] [address] Aug, [facility] [address] [id number] [address] [place] [address], [place] [address] Aug, [facility] [address] [id number] [address] [place] [address], [place] [address] Aug, [facility] [address] [id number] [address] [place] [address], [place] [address] Jul, [facility] [address] [id number] [address] [place] [phone] Jul, [facility] [address] [id number] [address] [place] [address], [place] [address] Jul, [facility] [address] [id number] [address] [place] [address], [place] [address] Jul, [facility] [address] [id number] [address] [place] [address], [place] [address] Jun, [facility] [address] [id number] [facility] [place] [address] Jun, [facility] [address] [id number] [address] [place] [address], [place] [address] Jun, [facility] [address] [id number] [address] [place] [address], [place] [address] May, [facility] [address] [id number] [address] [place] [address], [place] [address] May, [facility] [address] [id number] [address] [place] [address], [place] [address] May, [facility] [address] [id number] [address] [place] [address], [place] [address] May, [facility] [address] [id number] [address] [place] [address], [place] [address] May, [facility] [address] [id number] [address] [place] [address], [place] [address] May, [facility] [address] [id number] [address] [place] [address], [place] [address] May, [facility] [address] [id number] [address] [place] [address], [place] [address] May, [facility] [address] [id number] [address] [place] [address], [place] [address] February, [facility] [address] [id number] [address] [place] [address], [place] [address] February, [facility] [address] [id number] [address] [place] [address], [place] [address] Jan, [facility] [address] [id number] [address] [place] [address], [place] [address] Jan, [facility] [address] [id number] [address] [place] [address], [place] [address] Jan, [facility] [address] [id number] [address] [place] [address], [place] [address] Jan, [facility] [address] [id number] [address] [place] [address], [place] [address] Nov, [facility] [address] [id number] [address] [place] [address], [place] [address] Nov, [facility] [address] [id number] [address] [place] [address], [place] [address] Nov, [facility] [address] [id number] [address] [place] [address], [place] [address] Nov, [facility] [address] [id number] [address] [place] [address], [place] [address] Sep, [facility] [address] [id number] [address] [place] [address], [place] [address] Sep, [facility] [address] [id number] [address] [place] [address], [place] [address] Sep, [facility] [address] [id number] [address] [place] [address], [place] [address] 07 Sep, 2013 [facility] [address] [id number] [address] [place] [address], [place] [address] 06 Sep, 2013 [facility] [address] [id number] [address] [place] [address] 06 Sep, 2013 [facility] [address] [id number] [address] [place] [address] Jul, [facility] [address] [id number] [address] [place] [address] 11 Jul, 2013 [facility] [address] [id number] [address] [place] [address], [place] [address] 30 Jun, 2013 [facility] [address] [id number] [address] [place] [address] 23 Jun, 2013 [facility] [address] [id number] [address] [place] [address] 17 Sep2012 [facility] [address] [id number] [address] [place] [id number] May, [facility] [address] [place] [id number] May, [facility] [address] [id number] [address] [place] [address], [place] [address] May, [facility] [address] [id number] [address] [place] [address], [place] [address] May, [facility] [address] [id number] [address] [place] [address], [place] [address] May, [facility] [address] [id number] [address] [place] [address], [place] [address] May, [facility] [address] [id number] [address] [place] [address], [place] [address] May, [facility] [address] [id number] [address] [place] [address], [place] [address] Apr, [facility] [address] [id number] [address] [place] [address], [place] [address] Apr, [facility] [address] [id number] [address] [place] [address], [place] [address] Apr, [facility] [address] [id number] [address] [place] [address], [place] [address] Apr, [facility] [address] [id number] [address] [place] [address], [place] [address] Mar, [facility] [address] [id number] [address] [place] [address], [place] [address] February, [facility] [address] [id number] [address] [place] [address], [place] [address] Jan, [facility] [address] [id number] [address] [place] [address], [place] [address] Dec, [facility] [address] [id number] [address] [place] [address], [place] [address] Dec, [facility] [address] [id number] [address] [place] [address], [place] [address] Dec, [facility] [address] [id number] [address] [place] [address], [place] [address] Nov, [facility] [address] [id number] [address] [place] [address], [place] [address] Nov, [facility] [address] [id number] [address] [place] [address], [place] [address] Nov, [facility] [address] [id number] [address] [place] [address], [place] [address] Oct, [facility] [address] [id number] [address] [place] [address], [place] [address] Oct, [facility] [address] [id number] [address] [place] [address], [place] [address] Sep, [facility] [address] [id number] [address] [place] [address], [place] [address] Sep, [facility] [address] [id number] [address] [place] [address], [place] [address] Sep, [facility] [address] [id number] [address] [place] [address], [place] [address] Sep, [facility] [address] [id number] [address] [place] [address], [place] [address] Sep, [facility] [address] [id number] [address] [place] [address], [place] [address] Sep, [facility] [address] [id number] [address] [place] [address], [place] [address] Aug, [facility] [address] [id number] [address] [place] [address], [place] [address] Aug, [facility] [address] [id number] [address] [place] [address], [place] [address] Aug, [facility] [address] [id number] [address] [place] [address], [place] [address] Aug, [facility] [address] [id number] [address] [place] [address], [place] [address] Aug, [facility] [address] [id number] [address] [place] [address], [place] [address] Aug, [facility] [address] [id number] [address] [place] [address], [place] [address] Aug, [facility] [address] [id number] [address] [place] [address], [place] [address] Aug, [facility] [address] [id number] [address] [place] [address], [place] [address] Aug, [facility] [address] [id number] [address] [place] [address], [place] [address] Aug, [facility] [address] [id number] [address] [place] [address], [place] [address] Jul, [facility] [address] [id number] [address] [place] [address] Jul, [facility] [facility] [address] [id number] [address] [place] [address], [place] [address] Jul, [facility] [address] [id number] [address] [place] [id number] Jul, [facility] [address] [id number] [address] [place] [id number] Jul, [facility] [address] [id number] [address] [place] [id number] Jul, [facility] [address] [id number] [address] [place] [address], [place] [address] Jul, [facility] [address] [id number] [address] [place] [id number] Jul, [facility] [address] [id number] [address] [place] [id number] Jul, [facility] [address] [id number] [address] [place] [id number] Jul, [facility] [address] [id number] [address] [place] [address], [place] [address] Jul, [facility] [address] [id number] [address] [place] [address], [place] [address] Jul, [facility] [address] [id number] [address] [place] [address], [place] [address] Jul, [facility] [address] [id number] [address] [place] [address], [place] [address] Jul, [facility] [address] [id number] [address] [place] [address], [place] [address] Jul, [facility] [address] [id number] [address] [place] [address], [place] [address] Jun, [facility] [address] [id number] [address] [place] [address], [place] [address] 24 Jun, 2012 [facility] [address] [id number] [address] [place] [address], [place] [address] Jun, [facility] [address] [id number] [address] [place] [address], [place] [address] May, [facility] [address] [id number] [address] [place] [address], [place] [address] May, [facility] [address] [id number] [address] [place] [address], [place] [address] Mar, [facility] [address] [id number] [address] [place] [address], [place] [address] Mar, [facility] [address] [id number] [address] [place] [address], [place] [address] February, [facility] [address] [id number] [address] [place] [address], [place] [address] February, [facility] [address] [id number] [address] [place] [address], [place] [address] Nov, [facility] [address] [id number] [address] [place] [address], [place] [address] 15 Oct, 2011 [facility] [address] [id number] [address] [place] [address], [place] [address] Oct, [facility] [address] [id number] [address] [place] [address], [place] [address] Oct, [facility] [address] [id number] [address] [place] [address], [place] [address] Aug, [facility] [address] [id number] [address] [place] [address], [place] [address] Jul, [facility] [address] [id number] [address] [place] [address], [place] [address] Sep, [facility] [address] [id number] [address] [place] [address], [place] [address] Aug, [facility] [address] [id number] [address] [place] [address], [place] [address] Jul, [facility] [address] [id number] [address] [place] [address], [place] [address] Apr, [facility] [address] [id number] [address] [place] [address], [place] [address] February, [facility] [address] [id number] [address] [place] [address], [place] [address] Sep, [facility] [address] [id number] [address] [place] [address], [place] [address] 30 Sep, 2009 [facility] [address] [id number] [address] [place] [address], [place] [address] Sep, [facility] [address] [id number] [address] [place] [address], [place] [address] 15 Apr, 2009 [facility] [address] [id number] [address] [place] [address], [place] [address] Mar, [facility] [address] [id number] [address] [place], [place] [address] [address] February, [facility] [address] [facility] [id number] [address] [address] Jan, [facility] [address] [facility] [id number] [address] [place] [id number] Jul, IMMUNIZATIONS No Known Immunizations SOCIAL HISTORY Never Assessed REASON FOR VISIT PLAN OF CARE VITAL SIGNS MEDICATIONS Unknown Medications RESULTS No Results PROCEDURES No Known procedures INSTRUCTIONS MEDICATIONS ADMINISTERED No Known Medications MEDICAL (GENERAL) HISTORY Type Description Date Medical History 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
--- OUTSIDE RECORDS SUMMARY | 2020-05-02 14:56 | XMS REPORT ---
Author Author Michelle LANGE Organization [facility] Address [address] [place] [address] Care Team Providers Care Farm Management Professor Name Role Phone TRACEE LANGE Unavailable PROBLEMS Type Condition ICD9-CM Code HEJ40-GW Code Onset Dates Condition S tatus SNOMED Code Problem Lumbar neuritis M54.16 Active 1281 29724 Problem Thoracic neuritis M54.14 Active 58 629894 Problem Hypertension, benign I10 Active 77796002 Problem Cardiomyopathy I42.9 Active 26240 001 Problem Epileptic seizure, generalized G40.309 Active 85612324 Problem Excessive daytime sleepiness G47.19 A ctive 324310503402 Problem GERD (gastroesophageal reflux disease) K21.9 Active 244050692 Problem Panlobular emphysema J43.1 Active 6556553 Problem Intracranial injury, without loss of consciousness, subsequent encounter S06.9X0D Active 027985218 Problem Ventricular arrhythmia I49.9 Active 04126049 Problem Mood disorder F39 Active 438576 05 Problem Seasonal allergic rhinitis, unspecified trigger J3 0.2 Active 983782839 Problem Observed sleep apnea G47.30 Active 23185433 ALLERGIES No Information ENCOUNTERS Encounter Location Date Diagnosis [facility] [address] [facility] [id number] [address] [place] [address] Jan, [facility] [address] [facility] [id number] [address] [place] [address] Jan, [facility] [address] [facility] [id number] [address] [place] [address] Jan, [facility] [address] [facility] [id number] [address] [place] [address] Jan, Panlobular emphysema J43.1 [facility] [address] [facility] [id number] [address] [place] [address] Dec, Mood disorder F39 [facility] [address] [facility] [id number] [address] [place] [address] Nov, [facility] [address] [facility] [id number] [address] [place] [address] Oct, Cardiomyopathy I42.9 ; Hyper tension, benign I10 and Mood disorder F39 [facility] [address] [facility] [id number] [address] [place] [address] Oct, Epileptic seizure, generaliz ed G40.309 [facility] [address] [facility] [id number] [address] [place] [address] Oct, Panlobular emphysema J43.1 [facility] [address] [facility] [id number] [address] [place] [address] Oct, [facility] [address] [facility] [id number] [address] [place] [address] Oct, Panlobular emphysema J43.1 [facility] [address] [facility] [id number] [address] [place] [address] Sep, Unspecified convulsions R56. 9 [facility] [address] [facility] [id number] [address] [place] [address] Aug, Seizures R56.9 [facility] [address] [facility] [id number] [address] [place] [address] Aug, [facility] [address] [facility] [id number] [address] [place] [address] Aug, Hypertension, benign I10 [facility] [address] [facility] [id number] [address] [place] [address] Aug, [facility] [address] [facility] [id number] [address] [place] [address] Aug, [facility] [address] [facility] [id number] [address] [place] [address] Aug, [facility] [address] [place] [id number] [address] [place] [address] Aug, Panlobular emphysema J43.1 ; Observed sleep apnea G47.30 and Excessive daytime sleepiness G47.19 [facility] [address] [id number] [address] [place] [address] Aug, [facility] [address] [facility] [id number] [address] [place] [address] Jun, Seizures R56.9 [facility] [address] [id number] [address] [place] [address] Jun, [facility] [address] [id number] [address] [place] [address] Jun, [facility] [address] [id number] [address] [place] [address] Jun, [facility] [address] [facility] [id number] [address] [place] [address] May, Acute right-sided low back p ain without sciatica M54.5 [facility] [address] [id number] [address] [place] [address] May, Acute right-sided low back p ain without sciatica M54.5 [facility] [address] [id number] [address] [place] [address] Apr, High risk medication use Z79 .899 ; Acute septic pulmonary embolism without acute cor pulmonale I26.90 and Cellulitis of leg without foot L03.119 [facility] [address] [id number] [address] [place] [address] Jan, [facility] [address] [facility] [id number] [address] [place] [address] Jan, Seizures R56.9 [facility] [address] [facility] [id number] [address] [place] [address] Dec, Seizures R56.9 [facility] [address] [facility] [id number] [address] [place] [address] Nov, Dysuria R30.0 and Urinary tr act infection without hematuria, site unspecified N39.0 [facility] [address] [facility] [id number] [address] [place] [address] Nov, [facility] [address] [facility] [id number] [address] [place] [address] 05 Nov, 2018 Seizures R56.9 [facility] [address] [place] [id number] [address] [place] [address] Sep, Seizures R56.9 [facility] [address] [place] [id number] [address] [place] [address] Sep, Seasonal allergic rhinitis, unspecified trigger J30.2 [facility] [address] [facility] [id number] [address] [place] [address] Aug, Neck pain on left side M54.2 ; Mood disorder F39 and GERD (gastroesophageal reflux disease) K21.9 [facility] [address] [facility] [id number] [address] [place] [address] Aug, Seizures R56.9 [facility] [address] [facility] [id number] [address] [place] [address] Aug, Mood disorder F39 ; Neck dionicio n on left side M54.2 and Hypertension, benign I10 [facility] [address] [place] [id number] [address] [place] [address] Aug, [facility] [address] [place] [id number] [address] [place] [address] Aug, [facility] [address] [facility] [id number] [address] [place] [address] Jul, [facility] [address] [place] [id number] [address] [place] [address] Jul, Hypertension, benign I10 [facility] [address] [id number] [address] [place] [address] Jul, [facility] [address] [id number] [address] [place] [address] Jul, Thoracic neuritis M54.14 ; P ain of left leg M79.605 and Pain in right leg M79.604 [facility] [address] [id number] [address] [place] [address] Jun, Seizures R56.9 [facility] [address] [id number] [address] [place] [address] May, [facility] [address] [id number] [address] [place] [address] May, [facility] [address] [id number] [address] [place] [address] May, [facility] [address] [facility] [id number] [address] [place] [address] May, Seizures R56.9 [facility] [address] [id number] [address] [place] [address] May, [facility] [address] [facility] [id number] [address] [place] [address] May, Delirium R41.0 [facility] [address] [facility] [id number] [address] [place] [address] Apr, [facility] [address] [facility] [id number] [address] [place] [address] February, Ventricular arrhythmia I49.9 [facility] [address] [facility] [id number] [address] [place] [address] February, [facility] [address] [facility] [id number] [address] [place] [address] Dec, Thoracic neuritis M54.14 ; L umbar neuritis M54.16 and Epileptic seizure, generalized G40.309 [facility] [address] [facility] [id number] [address] [place] [address] Sep, Epileptic seizure, generaliz ed G40.309 and Lumbar neuritis M54.16 [facility] [address] [id number] [address] [place] [address] Aug, Thoracic neuritis M54.14 and Lumbar neuritis M54.16 [facility] [address] [id number] [address] [place] [address] Jun, [facility] [address] [id number] [address] [place] [address] Jun, Abscess of leg, left L02.416 [facility] [address] [id number] [address] [place] [address] May, Lumbar neuritis M54.16 ; Tho racic neuritis M54.14 ; Intracranial injury, without loss of consciousness, subsequent encounter S06.9X0D and Cardiomyopathy I42.9 [facility] [address] [id number] [address] [place] [address] Apr, Lumbar neuritis M54.16 [facility] [address] [id number] [address] [place] [address] Apr, [facility] [address] [facility] [id number] [address] [place] [address] Apr, Elevated liver enzymes R74.8 and Renal insufficiency N28.9 [facility] [address] [facility] [id number] [address] [place] [address] Apr, Lumbar neuritis M54.16 ; Tho racic neuritis M54.14 ; Hypertension, benign I10 ; Cardiomyopathy I42.9 and Epileptic seizure, generalized G40.309 [facility] [address] [id number] [address] [place] [address] Mar, [facility] [address] [facility] [id number] [address] [place] [address] February, [facility] [address] [facility] [id number] [address] [place] [address] February, Lumbar neuritis M54.16 ; Tho racic neuritis M54.14 ; Hypertension, benign I10 ; Cardiomyopathy I42.9 and Epileptic seizure, generalized G40.309 [facility] [address] [address] Dec, [facility] [address] [address] Sep, Epigastric mass R19.06 [facility] [address] [address] Sep, Epigastric mass R19.06 [facility] [address] [address] Sep, [facility] [address] [address] Sep, Epigastric mass R19.06 [facility] [address] [address] Sep, Epigastric mass R19.06 and L roque mass R91.8 [facility] [address] [address] Jul, Shortness of breath R06.02 ; Dysuria R30.0 and Acute bronchitis, unspecified organism J20.9 [facility] [address] [address] Jul, [facility] [address] [address] 15 Jun, 2016 Seizures R56.9 ; Thoracic ne uritis M54.14 ; Lumbar neuritis M54.16 and GERD (gastroesophageal reflux disease) K21.9 [facility] [address] [address] Jan, [facility] [address] [address] Sep, [facility] [address] [address] Sep, Intracranial injury, without loss of consciousness, subsequent encounter S06.9X0D ; Cardiomyopathy I42.9 ; GERD (gastroesophageal reflux disease) K21.9 ; Hypertension, benign I10 ; Thoracic neuritis M54.14 and Lumbar neuritis M54.16 [facility] [address] [address] Mar, [facility] [address] [address] Mar, Coronary atherosclerosis of unspecified type of vessel, [place] owingeh or graft 414.00 ; Unspecified essential hypertension 401.9 ; Thoracic or lumbosacral neuritis or radiculitis, unspecified 724.4 and Other convulsions 780.39 [facility] [address] [address] Jan, [facility] [address] [address] Jan, [facility] [address] [address] Nov, [facility] [address] [address] Nov, [facility] [address] [address] Nov, [facility] [address] [address] Nov, [facility] [address] [address] Nov, [facility] [address] [address] Nov, [facility] [address] [address] Nov, [facility] [address] [address] Nov, [facility] [address] [id number] [address] [place] [address], [place] [address] Nov, [facility] [address] [id number] [address] [place] [address], [place] [address] Nov, [facility] [address] [id number] [address] [place] [address], [place] [address] Sep, [facility] [address] [id number] [address] [place] [address], [place] [address] Sep, [facility] [address] [id number] [address] [place] [address], [place] [address] Aug, [facility] [address] [id number] [address] [place] [address], [place] [address] Aug, [facility] [address] [id number] [address] [place] [address], [place] [address] Aug, [facility] [address] [id number] [address] [place] [address], [place] [address] Aug, [facility] [address] [id number] [address] [place] [address], [place] [address] Jul, [facility] [address] [id number] [address] [place] [address], [place] [address] Jul, [facility] [address] [id number] [address] [place] [address], [place] [address] Jul, [facility] [address] [id number] [address] [place] [address], [place] [address] Jul, [facility] [address] [id number] [address] [place] [address], [place] [address] Jun, [facility] [address] [id number] [address] [place] [address], [place] [address] Jun, [facility] [address] [id number] [address] [place] [address], [place] [address] Jun, [facility] [address] [id number] [address] [place] [address], [place] [address] May, [facility] [address] [id number] [address] [place] [address], [place] [address] May, [facility] [address] [id number] [address] [place] [address], [place] [address] May, [facility] [address] [id number] [address] [place] [address], [place] [address] May, [facility] [address] [id number] [address] [place] [address], [place] [address] May, [facility] [address] [id number] [address] [place] [address], [place] [address] May, [facility] [address] [id number] [address] [place] [address], [place] [address] May, [facility] [address] [id number] [address] [place] [address], [place] [address] May, [facility] [address] [id number] [address] [place] [address], [place] [address] February, [facility] [address] [id number] [address] [place] [address], [place] [address] February, [facility] [address] [id number] [address] [place] [address], [place] [address] Jan, [facility] [address] [id number] [address] [place] [address], [place] [address] Jan, [facility] [address] [id number] [address] [place] [address], [place] [address] Jan, [facility] [address] [id number] [address] [place] [address], [place] [address] Jan, [facility] [address] [id number] [address] [place] [address], [place] [address] Nov, [facility] [address] [id number] [address] [place] [address], [place] [address] Nov, [facility] [address] [id number] [address] [place] [address], [place] [address] Nov, [facility] [address] [id number] [address] [place] [address], [place] [address] Nov, [facility] [address] [id number] [address] [place] [address], [place] [address] Sep, [facility] [address] [id number] [address] [place] [address], [place] [address] Sep, [facility] [address] [id number] [address] [place] [address], [place] [address] Sep, [facility] [address] [id number] [address] [place] [address], [place] [address] Sep, [facility] [address] [id number] [address] [place] [address], [place] [address] Sep, [facility] [address] [id number] [address] [place] [address], [place] [address] Sep, [facility] [address] [id number] [address] [place] [address], [place] [address] Jul, [facility] [address] [id number] [address] [place] [address], [place] [address] Jul, [facility] [address] [id number] [address] [place] [address], [place] [address] 30 Jun, 2013 [facility] [address] [id number] [address] [place] [address], [place] [address] 23 Jun, 2013 [facility] [address] [id number] [address] [place] [address], [place] [address] 17 Jun, 2013 [facility] [address] [id number] [address] [place] [address], [place] [address] May, [facility] [address] [place] [id number] May, [facility] [address] [id number] [address] [place] [address], [place] [address] May, [facility] [address] [id number] [address] [place] [address], [place] [address] May, [facility] [address] [id number] [address] [place] [address], [place] [address] May, [facility] [address] [id number] [address] [place] [address], [place] [address] May, [facility] [address] [id number] [address] [place] [address], [place] [address] May, [facility] [address] [id number] [address] [place] [address], [place] [address] Apr, [facility] [address] [id number] [address] [place] [address], [place] [address] Apr, [facility] [address] [id number] [address] [place] [address], [place] [address] Apr, [facility] [address] [id number] [address] [place] [address], [place] [address] Apr, [facility] [address] [id number] [address] [place] [address], [place] [address] Mar, [facility] [address] [id number] [address] [place] [address], [place] [address] February, [facility] [address] [id number] [address] [place] [address], [place] [address] Jan, [facility] [address] [id number] [address] [place] [address], [place] [address] Dec, [facility] [address] [id number] [address] [place] [address], [place] [address] Dec, [facility] [address] [id number] [address] [place] [address], [place] [address] Dec, [facility] [address] [id number] [address] [place] [address], [place] [address] Nov, [facility] [address] [id number] [address] [place] [address], [place] [address] Nov, [facility] [address] [id number] [address] [place] [address], [place] [address] Nov, [facility] [address] [id number] [address] [place] [address], [place] [address] Oct, [facility] [address] [id number] [address] [place] [address], [place] [address] Oct, [facility] [address] [id number] [address] [place] [address], [place] [address] Sep, [facility] [address] [id number] [address] [place] [address], [place] [address] Sep, [facility] [address] [id number] [address] [place] [address], [place] [address] Sep, [facility] [address] [id number] [address] [place] [address], [place] [address] Sep, [facility] [address] [id number] [address] [place] [address], [place] [address] Sep, [facility] [address] [id number] [address] [place] [address], [place] [address] Sep, [facility] [address] [id number] [address] [place] [address], [place] [address] Aug, [facility] [address] [id number] [address] [place] [address], [place] [address] Aug, [facility] [address] [id number] [address] [place] [address], [place] [address] Aug, [facility] [address] [id number] [address] [place] [address], [place] [address] Aug, [facility] [address] [id number] [address] [place] [address], [place] [address] Aug, [facility] [address] [id number] [address] [place] [address], [place] [address] Aug, [facility] [address] [id number] [address] [place] [address], [place] [address] Aug, [facility] [address] [id number] [address] [place] [address], [place] [address] Aug, [facility] [address] [id number] [address] [place] [address], [place] [address] Aug, [facility] [address] [id number] [address] [place] [address], [place] [address] Aug, [facility] [address] [id number] [address] [place] [address], [place] [address] Jul, [facility] [address] [id number] [address] [place] [address], [place] [address] Jul, [facility] [address] [id number] [address] [place] [address], [place] [address] Jul, [facility] [address] [id number] [address] [place] [address] Jul, [facility] [address] [id number] [address] [place] [address], [place] [address] Jul, [facility] [address] [id number] [address] [place] [address] Jul, [facility] [address] [id number] [address] [place] [address] Jul, [facility] [address] [id number] [address] [place] [address] Jul, [facility] [address] [id number] [address] [place] [address] 18 Jul, 2012 [facility] [address] [id number] [address] [place] [address] Jul, [facility] [address] [id number] [address] [place] [address] Jul, [facility] [address] [id number] [address] [place] [id number] 17 Jul, 2012 [facility] [address] [id number] [address] [place] [address], [place] [address] 17 Jul, 2012 [facility] [address] [id number] [address] [place] [address], [place] [address] Jul, [facility] [address] [id number] [address] [place] [address], [place] [address] Jul, [facility] [address] [id number] [address] [place] [address], [place] [address] 28 Jun, 2012 [facility] [address] [id number] [address] [place] [address], [place] [address] 24 Jun, 2012 [facility] [address] [id number] [address] [place] [address], [place] [address] Jun, [facility] [address] [id number] [address] [place] [address], [place] [address] May, [facility] [address] [id number] [address] [place] [address], [place] [address] May, [facility] [address] [id number] [address] [place] [address], [place] [address] Mar, [facility] [address] [id number] [address] [place] [address], [place] [address] Mar, [facility] [address] [id number] [address] [place] [address], [place] [address] February, [facility] [address] [id number] [address] [place] [address], [place] [address] February, [facility] [address] [id number] [address] [place] [address], [place] [address] Nov, [facility] [address] [id number] [address] [place] [address], [place] [address] Oct, [facility] [address] [id number] [address] [place] [address], [place] [address] Oct, [facility] [address] [id number] [address] [place] [address], [place] [address] Oct, [facility] [address] [id number] [address] [place] [address], [place] [address] Aug, [facility] [address] [id number] [address] [place] [address], [place] [address] Jul, [facility] [address] [id number] [address] [place] [address], [place] [address] Sep, [facility] [address] [id number] [address] [place] [address], [place] [address] Aug, [facility] [address] [id number] [address] [place] [address], [place] [address] Jul, [facility] [address] [id number] [address] [place] [address], [place] [address] Apr, [facility] [address] [id number] [address] [place] [address], [place] [address] February, [facility] [address] [id number] [address] [place] [address], [place] [address] Sep, [facility] [address] [id number] [address] [place] [address], [place] [address] Sep, [facility] [address] [id number] [address] [place] [address], [place] [address] Sep, [facility] [address] [id number] [address] [place] [address], [place] [address] 15 Apr, 2009 [facility] [address] [id number] [address] [place] [address], [place] [address] Mar, [facility] [address] [id number] [address] [place] [address], [place] [address] February, [facility] [address] [id number] [address] [place] [address], [place] [address] 15 Jan, 2009 [facility] [address] [id number] [address] [place] [address], [place] [address] Jul, IMMUNIZATIONS No Known Immunizations SOCIAL HISTORY Never Assessed REASON FOR VISIT PLAN OF CARE VITAL SIGNS MEDICATIONS Unknown Medications RESULTS No Results PROCEDURES Procedure Date Ordered Result Body Site BASIC METABOLIC PANEL Nov 30, 2014 VENIPUNCT, ROUTINE* Nov 30, 2014 INSTRUCTIONS MEDICATIONS ADMINISTERED No Known Medications MEDICAL (GENERAL) HISTORY Type Description Date Medical History 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
--- OUTSIDE RECORDS SUMMARY | 2020-05-02 14:56 | XMS REPORT ---
Author Author Michelle LANGE Organization [facility] Address [address] [place] [address] Care Team Providers Care Project Administrator Name Role Phone TRACEE LANGE Unavailable PROBLEMS Type Condition ICD9-CM Code NKE08-QX Code Onset Dates Condition S tatus SNOMED Code Problem Lumbar neuritis M54.16 Active 1281 85946 Problem Thoracic neuritis M54.14 Active 58 177692 Problem Hypertension, benign I10 Active 56832182 Problem Cardiomyopathy I42.9 Active 25443 001 Problem Epileptic seizure, generalized G40.309 Active 11779128 Problem Excessive daytime sleepiness G47.19 A ctive 796411337531 Problem GERD (gastroesophageal reflux disease) K21.9 Active 933080685 Problem Panlobular emphysema J43.1 Active 8549248 Problem Intracranial injury, without loss of consciousness, subsequent encounter S06.9X0D Active 784448285 Problem Ventricular arrhythmia I49.9 Active 78739787 Problem Mood disorder F39 Active 778980 05 Problem Seasonal allergic rhinitis, unspecified trigger J3 0.2 Active 784272647 Problem Observed sleep apnea G47.30 Active 42404612 ALLERGIES No Information ENCOUNTERS Encounter Location Date Diagnosis [facility] [address] [facility] [id number] [address] [place] [phone] February, [facility] [address] [facility] [id number] [address] [place] [id number] February, [facility] [address] [facility] [id number] [address] [place] [id number] Jan, [facility] [address] [facility] [id number] [address] [place] [phone] Jan, [facility] [address] [facility] [id number] [address] [place] [id number] Jan, [facility] [address] [facility] [id number] [address] [place] [id number] Jan, Panlobular emphysema J43.1 [facility] [address] [facility] [id number] [address] [place] [id number] Dec, Mood disorder F39 [facility] [address] [facility] [id number] [address] [place] [id number] Nov, [facility] [address] [facility] [id number] [address] [place] [id number] Oct, Cardiomyopathy I42.9 ; Hyper tension, benign I10 and Mood disorder F39 [facility] [address] [facility] [id number] [address] [place] [address] Oct, Epileptic seizure, generaliz ed G40.309 [facility] [address] [facility] [id number] [address] [place] [id number] Oct, Panlobular emphysema J43.1 [facility] [address] [facility] [id number] [address] [place] [phone] Oct, [facility] [address] [facility] [id number] [address] [place] [id number] Oct, Panlobular emphysema J43.1 [facility] [address] [facility] [id number] [address] [place] [id number] Sep, Unspecified convulsions R56. 9 [facility] [address] [facility] [id number] [address] [place] [id number] Aug, Seizures R56.9 [facility] [address] [facility] [id number] [address] [place] [phone] Aug, [facility] [address] [facility] [id number] [address] [place] [id number] Aug, Hypertension, benign I10 [facility] [address] [facility] [id number] [address] [place] [id number] Aug, [facility] [address] [facility] [id number] [address] [place] [id number] Aug, [facility] [address] [id number] [address] [place] [phone] Aug, [facility] [address] [facility] [id number] [address] [place] [id number] Aug, Panlobular emphysema J43.1 ; Observed sleep apnea G47.30 and Excessive daytime sleepiness G47.19 [facility] [address] [id number] [address] [place] [id number] Aug, [facility] [address] [facility] [id number] [address] [place] [id number] Jun, Seizures R56.9 [facility] [address] [facility] [id number] [address] [place] [phone] Jun, [facility] [address] [facility] [id number] [address] [place] [phone] Jun, [facility] [address] [id number] [address] [place] [phone] Jun, [facility] [address] [facility] [id number] [address] [place] [id number] May, Acute right-sided low back p ain without sciatica M54.5 [facility] [address] [facility] [id number] [address] [place] [address] May, Acute right-sided low back p ain without sciatica M54.5 [facility] [address] [facility] [id number] [address] [place] [address] Apr, High risk medication use Z79 .899 ; Acute septic pulmonary embolism without acute cor pulmonale I26.90 and Cellulitis of leg without foot L03.119 [facility] [address] [facility] [id number] [address] [place] [id number] Jan, [facility] [address] [facility] [id number] [address] [place] [id number] Jan, Seizures R56.9 [facility] [address] [facility] [id number] [address] [place] [id number] Dec, Seizures R56.9 [facility] [address] [facility] [id number] [address] [place] [id number] Nov, Dysuria R30.0 and Urinary tr act infection without hematuria, site unspecified N39.0 [facility] [address] [facility] [id number] [address] [place] [id number] Nov, [facility] [address] [facility] [id number] [address] [place] [phone] Nov, Seizures R56.9 [facility] [address] [place] [id number] [address] [place] [id number] Sep, Seizures R56.9 [facility] [address] [address] Sep, Seasonal allergic rhinitis, unspecified trigger J30.2 [facility] [address] [facility] [id number] [address] [place] [id number] Aug, Neck pain on left side M54.2 ; Mood disorder F39 and GERD (gastroesophageal reflux disease) K21.9 [facility] [address] [facility] [id number] [address] [place] [id number] Aug, Seizures R56.9 [facility] [address] [facility] [id number] [address] [place] [phone] Aug, Mood disorder F39 ; Neck dionicio n on left side M54.2 and Hypertension, benign I10 [facility] [address] [facility] [id number] [address] [place] [id number] Aug, [facility] [address] [facility] [id number] [address] [place] [id number] Aug, [facility] [address] [facility] [id number] [address] [place] [id number] Jul, [facility] [address] [id number] [address] [place] [id number] Jul, Hypertension, benign I10 [facility] [address] [id number] [address] [place] [id number] Jul, [facility] [address] [facility] [id number] [address] [place] [address] Jul, Thoracic neuritis M54.14 ; P ain of left leg M79.605 and Pain in right leg M79.604 [facility] [address] [id number] [address] [place] [id number] Jun, Seizures R56.9 [facility] [address] [id number] [address] [place] [id number] May, [facility] [address] [id number] [address] [place] [id number] May, [facility] [address] [id number] [address] [place] [phone] May, [facility] [address] [id number] [address] [place] [id number] May, Seizures R56.9 [facility] [address] [id number] [address] [place] [phone] May, [facility] [address] [id number] [address] [place] [phone] May, Delirium R41.0 [facility] [address] [id number] [address] [place] [phone] Apr, [facility] [address] [id number] [address] [place] [id number] February, Ventricular arrhythmia I49.9 [facility] [address] [id number] [address] [place] [id number] February, [facility] [address] [facility] [id number] [address] [place] [address] Dec, Thoracic neuritis M54.14 ; L umbar neuritis M54.16 and Epileptic seizure, generalized G40.309 [facility] [address] [facility] [id number] [address] [place] [address] Sep, Epileptic seizure, generaliz ed G40.309 and Lumbar neuritis M54.16 [facility] [address] [place] [id number] [address] [place] [id number] Aug, Thoracic neuritis M54.14 and Lumbar neuritis M54.16 [facility] [address] [place] [id number] [address] [place] [address] Jun, [place] [address] [address] Jun, Abscess of leg, left L02.416 [place] [address] [place] [id number] [address] [place] [address] May, Lumbar neuritis M54.16 ; Tho racic neuritis M54.14 ; Intracranial injury, without loss of consciousness, subsequent encounter S06.9X0D and Cardiomyopathy I42.9 [place] [id number] [place] [address] Apr, Lumbar neuritis M54.16 [place] [address] [place] [id number] [address] [place] [id number] Apr, [place] [address] [place] [id number] [address] [place] [id number] Apr, Elevated liver enzymes R74.8 and Renal insufficiency N28.9 [facility] [address] [place] [id number] [address] [place] [address] Apr, Lumbar neuritis M54.16 ; Tho racic neuritis M54.14 ; Hypertension, benign I10 ; Cardiomyopathy I42.9 and Epileptic seizure, generalized G40.309 [facility] [address] [place] [id number] [address] [place] [phone] Mar, [place] [address] [id number] February, [place] [address] [address] February, Lumbar neuritis M54.16 ; Tho racic neuritis M54.14 ; Hypertension, benign I10 ; Cardiomyopathy I42.9 and Epileptic seizure, generalized G40.309 [place] [address] [address] Dec, [facility] [address] [address] Sep, Epigastric mass R19.06 [place] [address] [address] Sep, Epigastric mass R19.06 [place] [address] [address] Sep, [place] [address] [address] Sep, Epigastric mass R19.06 [place] [address] [address] Sep, Epigastric mass R19.06 and L roque mass R91.8 [facility] [address] [address] Jul, Shortness of breath R06.02 ; Dysuria R30.0 and Acute bronchitis, unspecified organism J20.9 [place] [address] [address] Jul, [place] [address] [address] Jun, Seizures R56.9 ; Thoracic ne uritis M54.14 ; Lumbar neuritis M54.16 and GERD (gastroesophageal reflux disease) K21.9 [facility] [address] [address] Jan, [facility] [address] [address] Sep, [facility] [address] [address] Sep, Intracranial injury, without loss of consciousness, subsequent encounter S06.9X0D ; Cardiomyopathy I42.9 ; GERD (gastroesophageal reflux disease) K21.9 ; Hypertension, benign I10 ; Thoracic neuritis M54.14 and Lumbar neuritis M54.16 [facility] [address] [address] Mar, [facility] [address] [address] Mar, Coronary atherosclerosis of unspecified type of vessel, [place] or graft 414.00 ; Unspecified essential hypertension 401.9 ; Thoracic or lumbosacral neuritis or radiculitis, unspecified 724.4 and Other convulsions 780.39 [facility] [address] [address] Jan, [facility] [address] [address] Jan, [facility] [address] [address] Nov, [facility] [address] [address] Nov, [facility] [address] [address] Nov, [facility] [address] [address] Nov, [facility] [address] [address] Nov, [facility] [address] [address] Nov, [facility] [address] [id number] [address] [place] [address], [place] [address] Nov, 2014 [facility] [address] [id number] [address] [place] [address], [place] [address] Nov, 2014 [facility] [address] [id number] [address] [place] [address], [place] [address] Nov, 2014 [facility] [address] [id number] [address] [place] [address], [place] [address] Nov, 2014 [facility] [address] [id number] [address] [place] [address], [place] [address] Sep, [facility] [address] [id number] [address] [place] [address], [place] [address] Sep, [facility] [address] [id number] [address] [place] [address], [place] [address] Aug, [facility] [address] [id number] [address] [place] [address], [place] [address] Aug, [facility] [address] [id number] [address] [place] [address], [place] [address] Aug, [facility] [address] [id number] [address] [place] [address], [place] [address] Aug, [facility] [address] [id number] [address] [place] [address], [place] [address] Jul, [facility] [address] [id number] [address] [place] [phone] Jul, [facility] [address] [id number] [address] [place] [address], [place] [address] Jul, [facility] [address] [id number] [address] [place] [address], [place] [address] Jul, [facility] [address] [id number] [address] [place] [address], [place] [address] Jun, [facility] [address] [id number] [facility] [place] [address] Jun, [facility] [address] [id number] [address] [place] [address], [place] [address] Jun, [facility] [address] [id number] [address] [place] [address], [place] [address] May, [facility] [address] [id number] [address] [place] [address], [place] [address] May, [facility] [address] [id number] [address] [place] [address], [place] [address] May, [facility] [address] [id number] [address] [place] [address], [place] [address] May, [facility] [address] [id number] [address] [place] [address], [place] [address] May, [facility] [address] [id number] [address] [place] [address], [place] [address] May, [facility] [address] [id number] [address] [place] [address], [place] [address] May, [facility] [address] [id number] [address] [place] [address], [place] [address] May, [facility] [address] [id number] [address] [place] [address], [place] [address] February, [facility] [address] [id number] [address] [place] [address], [place] [address] February, [facility] [address] [id number] [address] [place] [address], [place] [address] Jan, [facility] [address] [id number] [address] [place] [address], [place] [address] Jan, [facility] [address] [id number] [address] [place] [address], [place] [address] Jan, [facility] [address] [id number] [address] [place] [address], [place] [address] Jan, [facility] [address] [id number] [address] [place] [address], [place] [address] Nov, [facility] [address] [id number] [address] [place] [address], [place] [address] Nov, [facility] [address] [id number] [address] [place] [address], [place] [address] Nov, [facility] [address] [id number] [address] [place] [address], [place] [address] Nov, [facility] [address] [id number] [address] [place] [address], [place] [address] Sep, [facility] [address] [id number] [address] [place] [address], [place] [address] Sep, [facility] [address] [id number] [address] [place] [address], [place] [address] Sep, [facility] [address] [id number] [address] [place] [address], [place] [address] 07 Sep, 2013 [facility] [address] [id number] [address] [place] [address], [place] [address] 06 Sep, 2013 [facility] [address] [id number] [address] [place] [address] 06 Sep, 2013 [facility] [address] [id number] [address] [place] [address] Jul, [facility] [address] [id number] [address] [place] [id number] 11 Jul, 2013 [facility] [address] [id number] [address] [place] [address], [place] [address] 30 Jun, 2013 [facility] [address] [id number] [address] [place] [id number] 23 Jun, 2013 [facility] [address] [id number] [address] [place] [id number] 17 Sep2012 [facility] [address] [id number] [address] [place] [id number] May, [facility] [address] [place] [id number] May, [facility] [address] [id number] [address] [place] [address], [place] [address] May, [facility] [address] [id number] [address] [place] [address], [place] [address] May, [facility] [address] [id number] [address] [place] [address], [place] [address] May, [facility] [address] [id number] [address] [place] [address], [place] [address] May, [facility] [address] [id number] [address] [place] [address], [place] [address] May, [facility] [address] [id number] [address] [place] [address], [place] [address] Apr, [facility] [address] [id number] [address] [place] [address], [place] [address] Apr, [facility] [address] [id number] [address] [place] [address], [place] [address] Apr, [facility] [address] [id number] [address] [place] [address], [place] [address] Apr, [facility] [address] [id number] [address] [place] [address], [place] [address] Mar, [facility] [address] [id number] [address] [place] [address], [place] [address] February, [facility] [address] [id number] [address] [place] [address], [place] [address] Jan, [facility] [address] [id number] [address] [place] [address], [place] [address] Dec, [facility] [address] [id number] [address] [place] [address], [place] [address] Dec, [facility] [address] [id number] [address] [place] [address], [place] [address] Dec, [facility] [address] [id number] [address] [place] [address], [place] [address] Nov, [facility] [address] [id number] [address] [place] [address], [place] [address] Nov, [facility] [address] [id number] [address] [place] [address], [place] [address] Nov, [facility] [address] [id number] [address] [place] [address], [place] [address] Oct, [facility] [address] [id number] [address] [place] [address], [place] [address] Oct, [facility] [address] [id number] [address] [place] [address], [place] [address] Sep, [facility] [address] [id number] [address] [place] [address], [place] [address] Sep, [facility] [address] [id number] [address] [place] [address], [place] [address] Sep, [facility] [address] [id number] [address] [place] [address], [place] [address] Sep, [facility] [address] [id number] [address] [place] [address], [place] [address] Sep, [facility] [address] [id number] [address] [place] [address], [place] [address] Sep, [facility] [address] [id number] [address] [place] [address], [place] [address] Aug, [facility] [address] [id number] [address] [place] [address], [place] [address] Aug, [facility] [address] [id number] [address] [place] [address], [place] [address] Aug, [facility] [address] [id number] [address] [place] [address], [place] [address] Aug, [facility] [address] [id number] [address] [place] [address], [place] [address] Aug, [facility] [address] [address] [id number] [address] [place] [address], [place] [address] Aug, [facility] [address] [id number] [address] [place] [address], [place] [address] Aug, [facility] [address] [id number] [address] [place] [address], [place] [address] Aug, [facility] [address] [id number] [address] [place] [address], [place] [address] Aug, [facility] [address] [id number] [address] [place] [address], [place] [address] Aug, [facility] [address] [id number] [address] [place] [address], [place] [address] Jul, [facility] [address] [id number] [address] [place] [id number] Jul, [facility] [address] [id number] [address] [place] [address], [place] [address] Jul, [facility] [address] [id number] [address] [place] [id number] Jul, [facility] [address] [id number] [address] [place] [address] Jul, [facility] [address] [id number] [address] [place] [id number] Jul, [facility] [address] [id number] [address] [place] [address], [place] [address] Jul, [facility] [address] [id number] [address] [place] [id number] Jul, [facility] [address] [id number] [address] [place] [id number] Jul, [facility] [address] [id number] [address] [place] [id number] Jul, [facility] [address] [id number] [address] [place] [address], [place] [address] Jul, [facility] [address] [id number] [address] [place] [address], [place] [address] Jul, [facility] [address] [id number] [address] [place] [address], [place] [address] Jul, [facility] [address] [id number] [address] [place] [address], [place] [address] Jul, [facility] [address] [id number] [address] [place] [address], [place] [address] Jul, [facility] [address] [id number] [address] [place] [address], [place] [address] Jun, [facility] [address] [id number] [address] [place] [address], [place] [address] 24 Jun, 2012 [facility] [address] [id number] [address] [place] [address], [place] [address] Jun, [facility] [address] [id number] [address] [place] [address], [place] [address] May, [facility] [address] [id number] [address] [place] [address], [place] [address] May, [facility] [address] [id number] [address] [place] [address], [place] [address] Mar, [facility] [address] [id number] [address] [place] [address], [place] [address] Mar, [facility] [address] [id number] [address] [place] [address], [place] [address] February, [facility] [address] [id number] [address] [place] [address], [place] [address] February, [facility] [address] [id number] [address] [place] [address], [place] [address] Nov, [facility] [address] [id number] [address] [place] [address], [place] [address] 15 Oct, 2011 [facility] [address] [id number] [address] [place] [address], [place] [address] Oct, [facility] [address] [id number] [address] [place] [address], [place] [address] Oct, [facility] [address] [id number] [address] [place] [address], [place] [address] Aug, [facility] [address] [id number] [address] [place] [address], [place] [address] Jul, [facility] [address] [id number] [address] [place] [address], [place] [address] Sep, [facility] [address] [id number] [address] [place] [address], [place] [address] Aug, [facility] [address] [id number] [address] [place] [address], [place] [address] Jul, [facility] [address] [id number] [address] [place] [address], [place] [address] Apr, [facility] [address] [id number] [address] [place] [address], [place] [address] February, [facility] [address] [id number] [address] [place] [address], [place] [address] Sep, [facility] [address] [id number] [address] [place] [address], [place] [address] 30 Sep, 2009 [facility] [address] [id number] [address] [place] [address], [place] [address] Sep, [facility] [address] [id number] [address] [place] [address], [place] [address] 15 Apr, 2009 [facility] [address] [id number] [address] [place] [address], [place] [address] Mar, [facility] [address] [id number] [address] [place] [address] [address] February, [facility] [address] [facility] [id number] [address] [place] [id number] Jan, [facility] [address] [facility] [id number] [address] [place] [id number] Jul, IMMUNIZATIONS No Known Immunizations SOCIAL HISTORY Never Assessed REASON FOR VISIT PLAN OF CARE VITAL SIGNS Height 63 in 2012-03-31 Weight 178.06 lbs 2012-03-31 Temperature 97 degrees Fahrenheit 2012-03-31 Heart Rate 100 bpm 2012-03-31 Respiratory Rate 18 2012-03-31 Blood pressure systolic 120 mmHg 2012-03-31 Blood pressure diastolic 82 mmHg 2012-03-31 MEDICATIONS Unknown Medications RESULTS No Results PROCEDURES No Known procedures INSTRUCTIONS MEDICATIONS ADMINISTERED No Known Medications MEDICAL (GENERAL) HISTORY Type Description Date Medical History 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
--- OUTSIDE RECORDS SUMMARY | 2020-05-02 14:56 | XMS REPORT ---
Author Author Michelle LANGE Organization [facility] Address [address] [place] [address] Care Team Providers Care Radiology Assistant Name Role Phone TRACEE LANGE Unavailable PROBLEMS Type Condition ICD9-CM Code IVP73-LU Code Onset Dates Condition S tatus SNOMED Code Problem Lumbar neuritis M54.16 Active 1281 57941 Problem Thoracic neuritis M54.14 Active 58 453632 Problem Hypertension, benign I10 Active 13721227 Problem Cardiomyopathy I42.9 Active 14249 001 Problem Epileptic seizure, generalized G40.309 Active 48494189 Problem Excessive daytime sleepiness G47.19 A ctive 856055870844 Problem GERD (gastroesophageal reflux disease) K21.9 Active 533817202 Problem Panlobular emphysema J43.1 Active 9693165 Problem Intracranial injury, without loss of consciousness, subsequent encounter S06.9X0D Active 194315252 Problem Ventricular arrhythmia I49.9 Active 13541840 Problem Mood disorder F39 Active 918965 05 Problem Seasonal allergic rhinitis, unspecified trigger J3 0.2 Active 579810947 Problem Observed sleep apnea G47.30 Active 94952192 ALLERGIES No Information ENCOUNTERS Encounter Location Date Diagnosis [facility] [address] [facility] [id number] [address] [place] [address] February, [facility] [address] [facility] [id number] [address] [place] [address] February, [facility] [address] [facility] [id number] [address] [place] [address] Jan, [facility] [address] [facility] [id number] [address] [place] [address] Jan, [facility] [address] [facility] [id number] [address] [place] [address] Jan, [facility] [address] [facility] [id number] [address] [place] [address] Jan, Panlobular emphysema J43.1 [facility] [address] [facility] [id number] [address] [place] [address] Dec, Mood disorder F39 [facility] [address] [facility] [id number] [address] [place] [address] Nov, [facility] [address] [facility] [id number] [address] [place] [address] Oct, Cardiomyopathy I42.9 ; Hyper tension, benign I10 and Mood disorder F39 [facility] [address] [facility] [id number] [address] [place] [address] Oct, Epileptic seizure, generaliz ed G40.309 [facility] [address] [facility] [id number] [address] [place] [address] Oct, Panlobular emphysema J43.1 [facility] [address] [facility] [id number] [address] [place] [address] Oct, [facility] [address] [facility] [id number] [address] [place] [address] Oct, Panlobular emphysema J43.1 [facility] [address] [facility] [id number] [address] [place] [address] Sep, Unspecified convulsions R56. 9 [facility] [address] [facility] [id number] [address] [place] [address] Aug, Seizures R56.9 [facility] [address] [facility] [id number] [address] [place] [address] Aug, [facility] [address] [facility] [id number] [address] [place] [address] Aug, Hypertension, benign I10 [facility] [address] [facility] [id number] [address] [place] [address] Aug, [facility] [address] [facility] [id number] [address] [place] [address] Aug, [facility] [address] [id number] [address] [place] [address] Aug, [facility] [address] [facility] [id number] [address] [place] [address] Aug, Panlobular emphysema J43.1 ; Observed sleep apnea G47.30 and Excessive daytime sleepiness G47.19 [facility] [address] [id number] [address] [place] [address] Aug, [facility] [address] [facility] [id number] [address] [place] [address] Jun, Seizures R56.9 [facility] [address] [facility] [id number] [address] [place] [address] Jun, [facility] [address] [facility] [id number] [address] [place] [address] Jun, [facility] [address] [id number] [address] [place] [address] Jun, [facility] [address] [facility] [id number] [address] [place] [address] May, Acute right-sided low back p ain without sciatica M54.5 [facility] [address] [facility] [id number] [address] [place] [address] May, Acute right-sided low back p ain without sciatica M54.5 [facility] [address] [facility] [id number] [address] [place] [address] Apr, High risk medication use Z79 .899 ; Acute septic pulmonary embolism without acute cor pulmonale I26.90 and Cellulitis of leg without foot L03.119 [facility] [address] [facility] [id number] [address] [place] [address] Jan, [facility] [address] [facility] [id number] [address] [place] [address] Jan, Seizures R56.9 [facility] [address] [facility] [id number] [address] [place] [address] Dec, Seizures R56.9 [facility] [address] [facility] [id number] [address] [place] [address] Nov, Dysuria R30.0 and Urinary tr act infection without hematuria, site unspecified N39.0 [facility] [address] [facility] [id number] [address] [place] [address] Nov, [facility] [address] [facility] [id number] [address] [place] [address] Nov, Seizures R56.9 [facility] [address] [place] [id number] [address] [place] [address] Sep, Seizures R56.9 [facility] [address] [address] Sep, Seasonal allergic rhinitis, unspecified trigger J30.2 [facility] [address] [facility] [id number] [address] [place] [address] Aug, Neck pain on left side M54.2 ; Mood disorder F39 and GERD (gastroesophageal reflux disease) K21.9 [facility] [address] [facility] [id number] [address] [place] [address] Aug, Seizures R56.9 [facility] [address] [facility] [id number] [address] [place] [address] Aug, Mood disorder F39 ; Neck dionicio n on left side M54.2 and Hypertension, benign I10 [facility] [address] [facility] [id number] [address] [place] [address] Aug, [facility] [address] [facility] [id number] [address] [place] [address] Aug, [facility] [address] [facility] [id number] [address] [place] [address] Jul, [facility] [address] [id number] [address] [place] [address] Jul, Hypertension, benign I10 [facility] [address] [id number] [address] [place] [address] Jul, [facility] [address] [facility] [id number] [address] [place] [address] Jul, Thoracic neuritis M54.14 ; P ain of left leg M79.605 and Pain in right leg M79.604 [facility] [address] [id number] [address] [place] [address] Jun, Seizures R56.9 [facility] [address] [id number] [address] [place] [address] May, [facility] [address] [id number] [address] [place] [address] May, [facility] [address] [id number] [address] [place] [address] May, [facility] [address] [id number] [address] [place] [address] May, Seizures R56.9 [facility] [address] [id number] [address] [place] [address] May, [facility] [address] [id number] [address] [place] [address] May, Delirium R41.0 [facility] [address] [id number] [address] [place] [address] Apr, [facility] [address] [id number] [address] [place] [address] February, Ventricular arrhythmia I49.9 [facility] [address] [id number] [address] [place] [address] February, [facility] [address] [facility] [id number] [address] [place] [address] Dec, Thoracic neuritis M54.14 ; L umbar neuritis M54.16 and Epileptic seizure, generalized G40.309 [facility] [address] [facility] [id number] [address] [place] [address] Sep, Epileptic seizure, generaliz ed G40.309 and Lumbar neuritis M54.16 [facility] [address] [place] [id number] [address] [place] [address] Aug, Thoracic neuritis M54.14 and Lumbar neuritis M54.16 [facility] [address] [place] [id number] [address] [place] [address] Jun, [place] [address] [address] Jun, Abscess of leg, left L02.416 [place] [address] [address] [place] [id number] [address] [place] [address] May, Lumbar neuritis M54.16 ; Tho racic neuritis M54.14 ; Intracranial injury, without loss of consciousness, subsequent encounter S06.9X0D and Cardiomyopathy I42.9 [place] [id number] [place] [address] Apr, Lumbar neuritis M54.16 [place] [address] [place] [id number] [address] [place] [address] Apr, [place] [address] [place] [id number] [address] [place] [address] Apr, Elevated liver enzymes R74.8 and Renal insufficiency N28.9 [facility] [address] [place] [id number] [address] [place] [address] Apr, Lumbar neuritis M54.16 ; Tho racic neuritis M54.14 ; Hypertension, benign I10 ; Cardiomyopathy I42.9 and Epileptic seizure, generalized G40.309 [facility] [address] [place] [id number] [address] [place] [address] Mar, [place] [address] [address] February, [place] [address] [address] February, Lumbar neuritis M54.16 ; Tho racic neuritis M54.14 ; Hypertension, benign I10 ; Cardiomyopathy I42.9 and Epileptic seizure, generalized G40.309 [place] [address] [address] Dec, [facility] [address] [address] Sep, Epigastric mass R19.06 [place] [address] [address] Sep, Epigastric mass R19.06 [place] [address] [address] Sep, [place] [address] [address] Sep, Epigastric mass R19.06 [place] [address] [address] Sep, Epigastric mass R19.06 and L roque mass R91.8 [facility] [address] [address] Jul, Shortness of breath R06.02 ; Dysuria R30.0 and Acute bronchitis, unspecified organism J20.9 [place] [address] [address] Jul, [place] [address] [address] Jun, Seizures R56.9 ; Thoracic ne uritis M54.14 ; Lumbar neuritis M54.16 and GERD (gastroesophageal reflux disease) K21.9 [facility] [address] [address] Jan, [facility] [address] [address] Sep, [facility] [address] [address] Sep, Intracranial injury, without loss of consciousness, subsequent encounter S06.9X0D ; Cardiomyopathy I42.9 ; GERD (gastroesophageal reflux disease) K21.9 ; Hypertension, benign I10 ; Thoracic neuritis M54.14 and Lumbar neuritis M54.16 [facility] [address] [address] Mar, [facility] [address] [address] Mar, Coronary atherosclerosis of unspecified type of vessel, [place] or graft 414.00 ; Unspecified essential hypertension 401.9 ; Thoracic or lumbosacral neuritis or radiculitis, unspecified 724.4 and Other convulsions 780.39 [facility] [address] [address] Jan, [facility] [address] [address] Jan, [facility] [address] [address] Nov, [facility] [address] [address] Nov, [facility] [address] [address] Nov, [facility] [address] [address] Nov, [facility] [address] [address] Nov, [facility] [address] [address] Nov, [facility] [address] [id number] [address] [place] [address], [place] [address] Nov, 2014 [facility] [address] [id number] [address] [place] [address], [place] [address] Nov, 2014 [facility] [address] [id number] [address] [place] [address], [place] [address] Nov, 2014 [facility] [address] [id number] [address] [place] [address], [place] [address] Nov, 2014 [facility] [address] [id number] [address] [place] [address], [place] [address] Sep, [facility] [address] [id number] [address] [place] [address], [place] [address] Sep, [facility] [address] [id number] [address] [place] [address], [place] [address] Aug, [facility] [address] [id number] [address] [place] [address], [place] [address] Aug, [facility] [address] [id number] [address] [place] [address], [place] [address] Aug, [facility] [address] [id number] [address] [place] [address], [place] [address] Aug, [facility] [address] [id number] [address] [place] [address], [place] [address] Jul, [facility] [address] [id number] [address] [place] [address] Jul, [facility] [address] [id number] [address] [place] [address], [place] [address] Jul, [facility] [address] [id number] [address] [place] [address], [place] [address] Jul, [facility] [address] [id number] [address] [place] [address], [place] [address] Jun, [facility] [address] [id number] [facility] [place] [address] Jun, [facility] [address] [id number] [address] [place] [address], [place] [address] Jun, [facility] [address] [id number] [address] [place] [address], [place] [address] May, [facility] [address] [id number] [address] [place] [address], [place] [address] May, [facility] [address] [id number] [address] [place] [address], [place] [address] May, [facility] [address] [id number] [address] [place] [address], [place] [address] May, [facility] [address] [id number] [address] [place] [address], [place] [address] May, [facility] [address] [id number] [address] [place] [address], [place] [address] May, [facility] [address] [id number] [address] [place] [address], [place] [address] May, [facility] [address] [id number] [address] [place] [address], [place] [address] May, [facility] [address] [id number] [address] [place] [address], [place] [address] February, [facility] [address] [id number] [address] [place] [address], [place] [address] February, [facility] [address] [id number] [address] [place] [address], [place] [address] Jan, [facility] [address] [id number] [address] [place] [address], [place] [address] Jan, [facility] [address] [id number] [address] [place] [address], [place] [address] Jan, [facility] [address] [id number] [address] [place] [address], [place] [address] Jan, [facility] [address] [id number] [address] [place] [address], [place] [address] Nov, [facility] [address] [id number] [address] [place] [address], [place] [address] Nov, [facility] [address] [id number] [address] [place] [address], [place] [address] Nov, [facility] [address] [id number] [address] [place] [address], [place] [address] Nov, [facility] [address] [id number] [address] [place] [address], [place] [address] Sep, [facility] [address] [id number] [address] [place] [address], [place] [address] Sep, [facility] [address] [id number] [address] [place] [address], [place] [address] Sep, [facility] [address] [id number] [address] [place] [address], [place] [address] 07 Sep, 2013 [facility] [address] [id number] [address] [place] [address], [place] [address] 06 Sep, 2013 [facility] [address] [id number] [address] [place] [address] 06 Sep, 2013 [facility] [address] [id number] [address] [place] [address] Jul, [facility] [address] [id number] [address] [place] [address] 11 Jul, 2013 [facility] [address] [id number] [address] [place] [address], [place] [address] 30 Jun, 2013 [facility] [address] [id number] [address] [place] [address] 23 Jun, 2013 [facility] [address] [id number] [address] [place] [address] 17 Sep2012 [facility] [address] [id number] [address] [place] [address] May, [facility] [address] [place] [id number] May, [facility] [address] [id number] [address] [place] [address], [place] [address] May, [facility] [address] [id number] [address] [place] [address], [place] [address] May, [facility] [address] [id number] [address] [place] [address], [place] [address] May, [facility] [address] [id number] [address] [place] [address], [place] [address] May, [facility] [address] [id number] [address] [place] [address], [place] [address] May, [facility] [address] [id number] [address] [place] [address], [place] [address] Apr, [facility] [address] [id number] [address] [place] [address], [place] [address] Apr, [facility] [address] [id number] [address] [place] [address], [place] [address] Apr, [facility] [address] [id number] [address] [place] [address], [place] [address] Apr, [facility] [address] [id number] [address] [place] [address], [place] [address] Mar, [facility] [address] [id number] [address] [place] [address], [place] [address] February, [facility] [address] [id number] [address] [place] [address], [place] [address] Jan, [facility] [address] [id number] [address] [place] [address], [place] [address] Dec, [facility] [address] [id number] [address] [place] [address], [place] [address] Dec, [facility] [address] [id number] [address] [place] [address], [place] [address] Dec, [facility] [place] [address] [id number] [address] [place] [address], [place] [address] Nov, [facility] [place] [address] [id number] [address] [place] [address], [place] [address] Nov, [facility] [place] [address] [id number] [address] [place] [address], [place] [address] Nov, [facility] [address] [id number] [address] [place] [address], [place] [address] Oct, [facility] [place] [address] [id number] [address] [place] [address], [place] [address] Oct, [facility] [address] [id number] [address] [place] [address], [place] [address] Sep, [facility] [place] [address] [id number] [address] [place] [address], [place] [address] Sep, [facility] [address] [id number] [address] [place] [address], [place] [address] Sep, [facility] [place] [address] [id number] [address] [place] [address], [place] [address] Sep, [facility] [address] [id number] [address] [place] [address], [place] [address] Sep, [facility] [address] [id number] [address] [place] [address], [place] [address] Sep, [facility] [address] [id number] [address] [place] [address], [place] [address] Aug, [facility] [address] [id number] [address] [place] [address], [place] [address] Aug, [facility] [address] [id number] [address] [place] [address], [place] [address] Aug, [facility] [facility] [address] [id number] [address] [place] [address], [place] [address] Aug, [facility] [address] [id number] [address] [place] [address], [place] [address] Aug, [facility] [address] [id number] [address] [place] [address], [place] [address] Aug, [facility] [address] [id number] [address] [place] [address], [place] [address] Aug, [facility] [address] [id number] [address] [place] [address], [place] [address] Aug, [facility] [address] [id number] [address] [place] [address], [place] [address] Aug, [facility] [address] [id number] [address] [place] [address], [place] [address] Aug, [facility] [address] [id number] [address] [place] [address], [place] [address] Jul, [facility] [address] [id number] [address] [place] [address] Jul, [facility] [address] [id number] [address] [place] [address], [place] [address] Jul, [facility] [address] [id number] [address] [place] [address] Jul, [facility] [address] [id number] [address] [place] [address] Jul, [facility] [address] [id number] [address] [place] [address] Jul, [facility] [address] [id number] [address] [place] [address], [place] [address] Jul, [facility] [address] [id number] [address] [place] [address] Jul, [facility] [address] [id number] [address] [place] [address] Jul, [facility] [address] [id number] [address] [place] [address] Jul, [facility] [address] [id number] [address] [place] [address], [place] [address] Jul, [facility] [address] [id number] [address] [place] [address], [place] [address] Jul, [facility] [address] [id number] [address] [place] [address], [place] [address] Jul, [facility] [address] [id number] [address] [place] [address], [place] [address] Jul, [facility] [address] [id number] [address] [place] [address], [place] [address] Jul, [facility] [address] [id number] [address] [place] [address], [place] [address] Jun, [facility] [address] [id number] [address] [place] [address], [place] [address] 24 Jun, 2012 [facility] [address] [id number] [address] [place] [address], [place] [address] Jun, [facility] [address] [id number] [address] [place] [address], [place] [address] May, [facility] [address] [id number] [address] [place] [address], [place] [address] May, [facility] [address] [id number] [address] [place] [address], [place] [address] Mar, [facility] [address] [id number] [address] [place] [address], [place] [address] Mar, [facility] [address] [id number] [address] [place] [address], [place] [address] February, [facility] [address] [id number] [address] [place] [address], [place] [address] February, [facility] [address] [id number] [address] [place] [address], [place] [address] Nov, [facility] [address] [id number] [address] [place] [address], [place] [address] 15 Oct, 2011 [facility] [address] [id number] [address] [place] [address], [place] [address] Oct, [facility] [address] [id number] [address] [place] [address], [place] [address] Oct, [facility] [address] [id number] [address] [place] [address], [place] [address] Aug, [facility] [address] [id number] [address] [place] [address], [place] [address] Jul, [facility] [address] [id number] [address] [place] [address], [place] [address] Sep, [facility] [address] [id number] [address] [place] [address], [place] [address] Aug, [facility] [address] [id number] [address] [place] [address], [place] [address] Jul, [facility] [address] [id number] [address] [place] [address], [place] [address] Apr, [facility] [address] [id number] [address] [place] [address], [place] [address] February, [facility] [address] [id number] [address] [place] [address], [place] [address] Sep, [facility] [address] [id number] [address] [place] [address], [place] [address] 30 Sep, 2009 [facility] [address] [id number] [address] [place] [address], [place] [address] Sep, [facility] [address] [id number] [address] [place] [address], [place] [address] 15 Apr, 2009 [facility] [address] [id number] [address] [place] [address], [place] [address] Mar, [facility] [address] [id number] [address] [place] [address] [address] February, [facility] [address] [facility] [id number] [address] [address] Jan, [facility] [address] [facility] [id number] [address] [place] [address] Jul, IMMUNIZATIONS No Known Immunizations SOCIAL HISTORY Never Assessed REASON FOR VISIT PLAN OF CARE VITAL SIGNS Height 63 in 2013-05-18 Weight 209.2 lbs 2013-05-18 Temperature 97 degrees Fahrenheit 2013-05-18 Heart Rate 100 bpm 2013-05-18 Respiratory Rate 22 2013-05-18 Blood pressure systolic 158 mmHg 2013-05-18 Blood pressure diastolic 92 mmHg 2013-05-18 MEDICATIONS Unknown Medications RESULTS No Results PROCEDURES Procedure Date Ordered Result Body Site BASIC METABOLIC PANEL May 18, 2013 VENIPUNCT, ROUTINE* May 18, 2013 INSTRUCTIONS MEDICATIONS ADMINISTERED No Known Medications MEDICAL (GENERAL) HISTORY Type Description Date Medical History 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
--- OUTSIDE RECORDS SUMMARY | 2020-05-02 14:56 | XMS REPORT ---
Author Author Michelle LANGE Organization [facility] Address [address] [place] [address] Care Team Providers Care Rn Stars Name Role Phone TRACEE LANGE Unavailable PROBLEMS Type Condition ICD9-CM Code TIB71-AY Code Onset Dates Condition S tatus SNOMED Code Problem Lumbar neuritis M54.16 Active 1281 73270 Problem Thoracic neuritis M54.14 Active 58 263131 Problem Hypertension, benign I10 Active 48138694 Problem Cardiomyopathy I42.9 Active 39173 001 Problem Epileptic seizure, generalized G40.309 Active 90537798 Problem Excessive daytime sleepiness G47.19 A ctive [id number] Problem GERD (gastroesophageal reflux disease) K21.9 Active 663346732 Problem Panlobular emphysema J43.1 Active 9607107 Problem Intracranial injury, without loss of consciousness, subsequent encounter S06.9X0D Active 744593048 Problem Ventricular arrhythmia I49.9 Active 78147998 Problem Mood disorder F39 Active 808308 05 Problem Seasonal allergic rhinitis, unspecified trigger J3 0.2 Active 833606657 Problem Observed sleep apnea G47.30 Active 12208842 ALLERGIES No Information ENCOUNTERS Encounter Location Date Diagnosis [facility] [address] [facility] [id number] [address] [place] [phone] Jan, [facility] [address] [facility] [id number] [address] [place] [address] Jan, [facility] [address] [facility] [id number] [address] [place] [address] Jan, [facility] [address] [facility] [id number] [address] [place] [address] Jan, Panlobular emphysema J43.1 [facility] [address] [facility] [id number] [address] [place] [address] Dec, Mood disorder F39 [facility] [address] [facility] [id number] [address] [place] [address] Nov, [facility] [address] [facility] [id number] [address] [place] [address] Oct, Cardiomyopathy I42.9 ; Hyper tension, benign I10 and Mood disorder F39 [facility] [address] [facility] [id number] [address] [place] [address] Oct, Epileptic seizure, generaliz ed G40.309 [facility] [address] [facility] [id number] [address] [place] [address] Oct, Panlobular emphysema J43.1 [facility] [address] [facility] [id number] [address] [place] [phone] Oct, [facility] [address] [facility] [id number] [address] [place] [phone] Oct, Panlobular emphysema J43.1 [facility] [address] [facility] [id number] [address] [place] [phone] Sep, Unspecified convulsions R56. 9 [facility] [address] [facility] [id number] [address] [place] [address] Aug, Seizures R56.9 [facility] [address] [facility] [id number] [address] [place] [phone] Aug, [facility] [address] [facility] [id number] [address] [place] [address] Aug, Hypertension, benign I10 [facility] [address] [facility] [id number] [address] [place] [address] Aug, [facility] [address] [facility] [id number] [address] [place] [phone] Aug, [facility] [address] [facility] [id number] [address] [place] [phone] Aug, [facility] [address] [place] [id number] [address] [place] [phone] Aug, Panlobular emphysema J43.1 ; Observed sleep apnea G47.30 and Excessive daytime sleepiness G47.19 [facility] [address] [id number] [address] [place] [phone] Aug, [facility] [address] [facility] [id number] [address] [place] [address] Jun, Seizures R56.9 [facility] [address] [id number] [address] [place] [phone] Jun, [facility] [address] [id number] [address] [place] [id number] Jun, [facility] [address] [id number] [address] [place] [phone] Jun, [facility] [address] [facility] [id number] [address] [place] [address] May, Acute right-sided low back p ain without sciatica M54.5 [facility] [address] [id number] [address] [place] [phone] May, Acute right-sided low back p ain without sciatica M54.5 [facility] [address] [id number] [address] [place] [address] Apr, High risk medication use Z79 .899 ; Acute septic pulmonary embolism without acute cor pulmonale I26.90 and Cellulitis of leg without foot L03.119 [facility] [address] [id number] [address] [place] [phone] Jan, [facility] [address] [facility] [id number] [address] [place] [address] Jan, Seizures R56.9 [facility] [address] [facility] [id number] [address] [place] [phone] Dec, Seizures R56.9 [facility] [address] [facility] [id number] [address] [place] [phone] Nov, Dysuria R30.0 and Urinary tr act infection without hematuria, site unspecified N39.0 [facility] [address] [facility] [id number] [address] [place] [address] Nov, [facility] [address] [facility] [id number] [address] [place] [phone] 05 Nov, 2018 Seizures R56.9 [facility] [address] [place] [id number] [address] [place] [address] Sep, Seizures R56.9 [facility] [address] [place] [id number] [address] [place] [phone] Sep, Seasonal allergic rhinitis, unspecified trigger J30.2 [facility] [address] [facility] [id number] [address] [place] [phone] Aug, Neck pain on left side M54.2 ; Mood disorder F39 and GERD (gastroesophageal reflux disease) K21.9 [facility] [address] [facility] [id number] [address] [place] [phone] Aug, Seizures R56.9 [facility] [address] [facility] [id number] [address] [place] [phone] Aug, Mood disorder F39 ; Neck dionicio n on left side M54.2 and Hypertension, benign I10 [facility] [address] [place] [id number] [address] [place] [phone] Aug, [facility] [address] [place] [id number] [address] [place] [phone] Aug, [facility] [address] [facility] [id number] [address] [place] [phone] Jul, [facility] [address] [place] [id number] [address] [place] [phone] Jul, Hypertension, benign I10 [facility] [address] [place] [id number] [address] [place] [phone] Jul, [facility] [address] [id number] [address] [place] [phone] Jul, Thoracic neuritis M54.14 ; P ain of left leg M79.605 and Pain in right leg M79.604 [facility] [address] [id number] [address] [place] [phone] Jun, Seizures R56.9 [facility] [address] [id number] [address] [place] [phone] May, [facility] [address] [id number] [address] [place] [phone] May, [facility] [address] [id number] [address] [place] [phone] May, [facility] [address] [facility] [id number] [address] [place] [phone] May, Seizures R56.9 [facility] [address] [id number] [address] [place] [phone] May, [facility] [address] [facility] [id number] [address] [place] [phone] May, Delirium R41.0 [facility] [address] [facility] [id number] [address] [place] [phone] Apr, [facility] [address] [facility] [id number] [address] [place] [phone] February, Ventricular arrhythmia I49.9 [facility] [address] [facility] [id number] [address] [place] [phone] February, [facility] [address] [facility] [id number] [address] [place] [address] Dec, Thoracic neuritis M54.14 ; L umbar neuritis M54.16 and Epileptic seizure, generalized G40.309 [facility] [address] [facility] [id number] [address] [place] [phone] Sep, Epileptic seizure, generaliz ed G40.309 and Lumbar neuritis M54.16 [facility] [address] [id number] [address] [place] [phone] Aug, Thoracic neuritis M54.14 and Lumbar neuritis M54.16 [facility] [address] [id number] [address] [place] [phone] Jun, [facility] [address] [id number] [address] [place] [address] Jun, Abscess of leg, left L02.416 [facility] [address] [id number] [address] [place] [phone] May, Lumbar neuritis M54.16 ; Tho racic neuritis M54.14 ; Intracranial injury, without loss of consciousness, subsequent encounter S06.9X0D and Cardiomyopathy I42.9 [facility] [address] [id number] [address] [place] [phone] Apr, Lumbar neuritis M54.16 [facility] [address] [id number] [address] [place] [phone] Apr, [facility] [address] [facility] [id number] [address] [place] [phone] Apr, Elevated liver enzymes R74.8 and Renal insufficiency N28.9 [facility] [address] [facility] [id number] [address] [place] [phone] Apr, Lumbar neuritis M54.16 ; Tho racic neuritis M54.14 ; Hypertension, benign I10 ; Cardiomyopathy I42.9 and Epileptic seizure, generalized G40.309 [facility] [address] [id number] [address] [place] [phone] Mar, [facility] [address] [facility] [id number] [address] [place] [phone] February, [facility] [address] [facility] [id number] [address] [place] [phone] February, Lumbar neuritis M54.16 ; Tho racic neuritis M54.14 ; Hypertension, benign I10 ; Cardiomyopathy I42.9 and Epileptic seizure, generalized G40.309 [facility] [address] [phone] Dec, [facility] [address] [phone] Sep, Epigastric mass R19.06 [facility] [address] [phone] Sep, Epigastric mass R19.06 [facility] [address] [address] Sep, [facility] [address] [address] Sep, Epigastric mass R19.06 [facility] [address] [address] Sep, Epigastric mass R19.06 and L roque mass R91.8 [facility] [address] [address] Jul, Shortness of breath R06.02 ; Dysuria R30.0 and Acute bronchitis, unspecified organism J20.9 [facility] [address] [address] Jul, [facility] [address] [address] 15 Jun, 2016 Seizures R56.9 ; Thoracic ne uritis M54.14 ; Lumbar neuritis M54.16 and GERD (gastroesophageal reflux disease) K21.9 [facility] [address] [phone] Jan, [facility] [address] [phone] Sep, [facility] [address] [address] Sep, Intracranial injury, without loss of consciousness, subsequent encounter S06.9X0D ; Cardiomyopathy I42.9 ; GERD (gastroesophageal reflux disease) K21.9 ; Hypertension, benign I10 ; Thoracic neuritis M54.14 and Lumbar neuritis M54.16 [facility] [address] [address] Mar, [facility] [address] [address] Mar, Coronary atherosclerosis of unspecified type of vessel, bois forte or graft 414.00 ; Unspecified essential hypertension 401.9 ; Thoracic or lumbosacral neuritis or radiculitis, unspecified 724.4 and Other convulsions 780.39 [facility] [address] [phone] Jan, [facility] [address] [phone] Jan, [facility] [address] [address] Nov, [facility] [address] [phone] Nov, [facility] [address] [address] Nov, [facility] [address] [address] Nov, [facility] [address] [address] Nov, [facility] [address] [address] Nov, [facility] [address] [address] Nov, [facility] [address] [address] Nov, [facility] [address] [id number] [address] [place] [address], [place] [address] Nov, [facility] [address] [id number] [address] [place] [address], [place] [address] Nov, [facility] [address] [id number] [address] [place] [address], [place] [address] Sep, [facility] [address] [id number] [address] [place] [address], [place] [address] Sep, [facility] [address] [id number] [address] [place] [address], [place] [address] Aug, [facility] [address] [id number] [address] [place] [address], [place] [address] Aug, [facility] [address] [id number] [address] [place] [address], [place] [address] Aug, [facility] [address] [id number] [address] [place] [address], [place] [address] Aug, [facility] [address] [id number] [address] [place] [address], [place] [address] Jul, [facility] [address] [id number] [address] [place] [address], [place] [address] Jul, [facility] [address] [id number] [address] [place] [address], [place] [address] Jul, [facility] [address] [id number] [address] [place] [address], [place] [address] Jul, [facility] [address] [id number] [address] [place] [address], [place] [address] Jun, [facility] [address] [id number] [address] [place] [address], [place] [address] Jun, [facility] [address] [id number] [address] [place] [address], [place] [address] Jun, [facility] [address] [id number] [address] [place] [address], [place] [address] May, [facility] [address] [id number] [address] [place] [address], [place] [address] May, [facility] [address] [id number] [address] [place] [address], [place] [address] May, [facility] [address] [id number] [address] [place] [address], [place] [address] May, [facility] [address] [id number] [address] [place] [address], [place] [address] May, [facility] [address] [id number] [address] [place] [address], [place] [address] May, [facility] [address] [id number] [address] [place] [address], [place] [address] May, [facility] [address] [id number] [address] [place] [address], [place] [address] May, [facility] [address] [id number] [address] [place] [address], [place] [address] February, [facility] [address] [id number] [address] [place] [address], [place] [address] February, [facility] [address] [id number] [address] [place] [address], [place] [address] Jan, [facility] [address] [id number] [address] [place] [address], [place] [address] Jan, [facility] [address] [id number] [address] [place] [address], [place] [address] Jan, [facility] [address] [id number] [address] [place] [address], [place] [address] Jan, [facility] [address] [id number] [address] [place] [address], [place] [address] Nov, [facility] [address] [id number] [address] [place] [address], [place] [address] Nov, [facility] [address] [id number] [address] [place] [address], [place] [address] Nov, [facility] [address] [id number] [address] [place] [address], [place] [address] Nov, [facility] [address] [id number] [address] [place] [address], [place] [address] Sep, [facility] [address] [id number] [address] [place] [address], [place] [address] Sep, [facility] [address] [id number] [address] [place] [address], [place] [address] Sep, [facility] [address] [id number] [address] [place] [address], [place] [address] Sep, [facility] [address] [id number] [address] [place] [address], [place] [address] Sep, [facility] [address] [id number] [address] [place] [address], [place] [address] Sep, [facility] [address] [id number] [address] [place] [address], [place] [address] Jul, [facility] [address] [id number] [address] [place] [address], [place] [address] Jul, [facility] [address] [id number] [address] [place] [address], [place] [address] 30 Jun, 2013 [facility] [address] [id number] [address] [place] [address], [place] [address] 23 Jun, 2013 [facility] [address] [id number] [address] [place] [address], [place] [address] 17 Jun, 2013 [facility] [address] [id number] [address] [place] [address], [place] [address] May, [facility] [address] [place] [id number] May, [facility] [address] [id number] [address] [place] [address], [place] [address] May, [facility] [address] [id number] [address] [place] [address], [place] [address] May, [facility] [address] [id number] [address] [place] [address], [place] [address] May, [facility] [address] [id number] [address] [place] [address], [place] [address] May, [facility] [address] [id number] [address] [place] [address], [place] [address] May, [facility] [address] [id number] [address] [place] [address], [place] [address] Apr, [facility] [address] [id number] [address] [place] [address], [place] [address] Apr, [facility] [address] [id number] [address] [place] [address], [place] [address] Apr, [facility] [address] [id number] [address] [place] [address], [place] [address] Apr, [facility] [address] [id number] [address] [place] [address], [place] [address] Mar, [facility] [address] [id number] [address] [place] [address], [place] [address] February, [facility] [address] [id number] [address] [place] [address], [place] [address] Jan, [facility] [address] [id number] [address] [place] [address], [place] [address] Dec, [facility] [address] [id number] [address] [place] [address], [place] [address] Dec, [facility] [address] [id number] [address] [place] [address], [place] [address] Dec, [facility] [address] [id number] [address] [place] [address], [place] [address] Nov, [facility] [address] [id number] [address] [place] [address], [place] [address] Nov, [facility] [address] [id number] [address] [place] [address], [place] [address] Nov, [facility] [address] [id number] [address] [place] [address], [place] [address] Oct, [facility] [address] [id number] [address] [place] [address], [place] [address] Oct, [facility] [address] [id number] [address] [place] [address], [place] [address] Sep, [facility] [address] [id number] [address] [place] [address], [place] [address] Sep, [facility] [address] [id number] [address] [place] [address], [place] [address] Sep, [facility] [address] [id number] [address] [place] [address], [place] [address] Sep, [facility] [address] [id number] [address] [place] [address], [place] [address] Sep, [facility] [address] [id number] [address] [place] [address], [place] [address] Sep, [facility] [address] [id number] [address] [place] [address], [place] [address] Aug, [facility] [address] [id number] [address] [place] [address], [place] [address] Aug, [facility] [address] [id number] [address] [place] [address], [place] [address] Aug, [facility] [address] [id number] [address] [place] [address], [place] [address] Aug, [facility] [address] [id number] [address] [place] [address], [place] [address] Aug, [facility] [address] [id number] [address] [place] [address], [place] [address] Aug, [facility] [address] [id number] [address] [place] [address], [place] [address] Aug, [facility] [address] [id number] [address] [place] [address], [place] [address] Aug, [facility] [address] [id number] [address] [place] [address], [place] [address] Aug, [facility] [address] [id number] [address] [place] [address], [place] [address] Aug, [facility] [address] [id number] [address] [place] [address], [place] [address] Jul, [facility] [address] [id number] [address] [place] [address], [place] [address] Jul, [facility] [address] [id number] [address] [place] [address], [place] [address] Jul, [facility] [address] [id number] [address] [place] [address] Jul, [facility] [address] [id number] [address] [place] [address], [place] [address] Jul, [facility] [address] [id number] [address] [place] [address] Jul, [facility] [address] [id number] [address] [place] [address] Jul, [facility] [address] [id number] [address] [place] [id number] Jul, [facility] [address] [id number] [address] [place] [id number] 18 Jul, 2012 [facility] [address] [id number] [address] [place] [id number] Jul, [facility] [address] [id number] [address] [place] [id number] Jul, [facility] [address] [id number] [address] [place] [id number] 17 Jul, 2012 [facility] [address] [id number] [address] [place] [address], [place] [address] 17 Jul, 2012 [facility] [address] [id number] [address] [place] [address], [place] [address] Jul, [facility] [address] [id number] [address] [place] [address], [place] [address] Jul, [facility] [address] [id number] [address] [place] [address], [place] [address] 28 Jun, 2012 [facility] [address] [id number] [address] [place] [address], [place] [address] 24 Jun, 2012 [facility] [address] [id number] [address] [place] [address], [place] [address] Jun, [facility] [address] [id number] [address] [place] [address], [place] [address] May, [facility] [address] [id number] [address] [place] [address], [place] [address] May, [facility] [address] [id number] [address] [place] [address], [place] [address] Mar, [facility] [address] [id number] [address] [place] [address], [place] [address] Mar, [facility] [address] [id number] [address] [place] [address], [place] [address] February, [facility] [address] [id number] [address] [place] [address], [place] [address] February, [facility] [address] [id number] [address] [place] [address], [place] [address] Nov, [facility] [address] [id number] [address] [place] [address], [place] [address] Oct, [facility] [address] [id number] [address] [place] [address], [place] [address] Oct, [facility] [address] [id number] [address] [place] [address], [place] [address] Oct, [facility] [address] [id number] [address] [place] [address], [place] [address] Aug, [facility] [address] [id number] [address] [place] [address], [place] [address] Jul, [facility] [address] [id number] [address] [place] [address], [place] [address] Sep, [facility] [address] [id number] [address] [place] [address], [place] [address] Aug, [facility] [address] [id number] [address] [place] [address], [place] [address] Jul, [facility] [address] [id number] [address] [place] [address], [place] [address] Apr, [facility] [address] [id number] [address] [place] [address], [place] [address] February, [facility] [address] [id number] [address] [place] [address], [place] [address] Sep, [facility] [address] [id number] [address] [place] [address], [place] [address] Sep, [facility] [address] [id number] [address] [place] [address], [place] [address] Sep, [facility] [address] [id number] [address] [place] [address], [place] [address] 15 Apr, 2009 [facility] [address] [id number] [address] [place] [address], [place] [address] Mar, [facility] [address] [id number] [address] [place] [address], [place] [address] February, [facility] [address] [id number] [address] [place] [address], [place] [address] 15 Jan, 2009 [facility] [address] [id number] [address] [place] [address] [address] Jul, IMMUNIZATIONS No Known Immunizations SOCIAL HISTORY Never Assessed REASON FOR VISIT PLAN OF CARE VITAL SIGNS MEDICATIONS Unknown Medications RESULTS No Results PROCEDURES No Known procedures INSTRUCTIONS MEDICATIONS ADMINISTERED No Known Medications MEDICAL (GENERAL) HISTORY Type Description Date Medical History 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
--- OUTSIDE RECORDS SUMMARY | 2020-05-02 15:06 | XMS REPORT | Continuity of Care Document ---
Demographics Preferred Language Unknown Marital Status Unknown Adventism Affiliation Unknown Race Unknown Ethnic Group Unknown Author Organization Unknown Address Unknown Phone Unavailable Allergies Active Description Code Type Severity Reaction Onset Reported/Identified Relationship to Patient Clinical Status Yes nitrous oxide [id number] Newton g Allergy Unknown N/A 06/08/2007 [address] AILEEN Inhibitors [id number] Dr ug Allergy Unknown N/A 05/25/2014 Yes No Allergy Information Available [id number] Drug Allergy Unknown N/A 020 Medications There is no data. Problems Date Dx Coded Attending Type Code Diagnosis Diagnosed By 08/08/2008 KRANTHI PRECIADO MD 599.0 Urinary Tract Infection 08/08/2008 599.0 Urin miki Tract Infection 08/08/2008 599.0 Urin miki Tract Infection 08/08/2008 TRACEE LANGE APRN 59 9.0 Urinary Tract Infection 08/08/2008 TRACEE LANGE APRN 59 9.0 Urinary Tract Infection 08/08/2008 599.0 Urin miki Tract Infection 08/08/2008 599.0 Urin miki Tract Infection 08/08/2008 KRANTHI PRECIADO MD 599.0 [...] ulitis And Abscess Of Unspecified Sites 01/25/2009 TRACEE [...] Bron chitis, Acute 02/21/2009 TRACEE LANGE APRN T 46 6.0 Bronchitis, Acute 02/21/2009 TRACEE LANGE APRN 46 6.0 Bronchitis, Acute 02/21/2009 466.0 Bron chitis, Acute 02/21/2009 466.0 Bron chitis, Acute 02/21/2009 KRANTHI PRECIADO MD 466.0 Bronchitis, Acute 02/21/2009 KRANTHI PRECIADO MD 466.0 Bronchitis, Acute 02/21/2009 TRACEE LANGE APRN 46 6.0 Bronchitis, Acute 02/21/2009 TRACEE LANGE APRN 46 6.0 Bronchitis, Acute 02/21/2009 TRACEE LANGE APRN 46 6.0 Bronchitis, Acute 02/21/2009 GAVI DEGROOT DO K 466.0 Bronchitis, Acute 02/21/2009 DEGROOT DO, [...] LANGE APRN T 786.50 Chest Pain 04/26/2009 ANISA MOLINA TRACEE T 786.50 Chest Pain 04/26/2009 DEGROOT DO, [...] APRN 84 0.9 SPRAIN/STRAIN SHOULDER/ARM 10/04/2009 TRACEE LNAGE APRN 84 0.9 SPRAIN/STRAIN SHOULDER/ARM 10/04/2009 840.9 [...] 789.00 Abd ominal Pain Unspecified Site 02/14/2010 RTACEE LANGE APRN 789.00 Abdominal Pain Unspecified Site [...] Pain Unspecified Site 03/09/2010 KRANTHI PRECIADO MD 719.4 6 PAIN [...] INVOLVING LOWER LEG 03/09/2010 TRACEE LANGE APRN T 84 4.9 SPRAIN/STRAIN KNEE/LEG 03/09/2010 TRACEE LANGE APRN 719.46 PAIN IN JOINT INVOLVING LOWER LEG 03/09/2010 TRACEE LANGE APRN T 84 4.9 SPRAIN/STRAIN KNEE/LEG 03/09/2010 TRACEE ALNGE APRN 719.46 PAIN IN JOINT INVOLVING LOWER LEG 03/09/2010 TRACEE LANGE APRN T 84 4.9 SPRAIN/STRAIN KNEE/LEG 03/09/2010 DEGROOT DO, GAVI K [...] 786.52 Painful Respiration 04/25/2010 TRACEE LANGE APRN T 786.52 Painful Respiration 04/25/2010 TRACEE LANGE APRN [...] Chronic Bronchitis With (acute) Exacerbati on 08/20/2010 AGUSTÍN DEGROOT DOA K 465.9 Acute Upper Respiratory Infections Of Unspecified Site 08/20/2010 MIKAYLA LANGE GAVI K 491.21 Obstructive Chronic Bronchitis With (acute) Exacerbation 08/20/2010 AGUSTÍN DEGROOT DOA K 465.9 Acute Upper Respiratory Infections Of Unspecified Site 08/20/2010 GAVI DEGROOT DO K 491.21 Obstructive Chronic Bronchitis With (acute) [...] LANGE APRN 78 4.0 Headache 03/19/2011 TRACEE LAGNE APRN 799.02 HYPOXEMIA 03/19/2011 TRACEE LANGE APRN 780.60 Fever Unspecified 03/19/2011 TRACEE LANGE APRN Nona 78 4.0 Headache 03/19/2011 TRACEE LANGE APRN 799.02 HYPOXEMIA 03/19/2011 TRACEE LANGE APRN 780.60 Fever Unspecified 03/19/2011 TRACEE LANGE APRN 78 4.0 Headache 03/19/2011 TRACEE LANGE APRN Nona 799.02 HYPOXEMIA 03/19/2011 DEGROOT DO, GAVI K [...] QUENTIN TRAL HERNIA NOS 07/17/2011 Ot 571.8 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 OFFICER MALIKA LIVER DIS NEC 07/17/2011 Ot 577.0 [...] 530.81 ESO PHAGEAL REFLUX 10/11/2011 Ot 585.9 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 OFFICER MALIKA KIDNEY DISEASE, UNSPECIFIED 10/11/2011 Ot 596.51 [...] TRACEE LANGE APRN 530.81 ESOPHAGEAL REFLUX 10/23/2011 ANISA 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, TRACEE T 40 1.9 ESSENTIAL HYPERTENSION 10/23/2011 TRACEE LANGE APRN T 530.81 ESOPHAGEAL REFLUX 10/23/2011 401.9 ESSE NTIAL HYPERTENSION 10/23/2011 530.81 ESO PHAGEAL REFLUX 10/23/2011 401.9 ESSE NTIAL HYPERTENSION 10/23/2011 530.81 ESO PHAGEAL REFLUX 10/23/2011 KRANTHI PRECIADO MD 401.9 ESSENTIAL HYPERTENSION 10/23/2011 KRANTHI PRECIADO MD 530.8 1 ESOPHAGEAL REFLUX 10/23/2011 KRANTHI PRECIADO MD 401.9 ESSENTIAL HYPERTENSION 10/23/2011 KRANTHI PRECIADO MD 530.8 1 ESOPHAGEAL REFLUX 10/23/2011 TRACEE LANGE APRN T 40 1.9 ESSENTIAL HYPERTENSION 10/23/2011 TRACEE LANGE APRN T 530.81 ESOPHAGEAL REFLUX 10/23/2011 TRACEE ALNGE APRN T 40 1.9 ESSENTIAL HYPERTENSION 10/23/2011 TRACEE LANGE APRN T 530.81 ESOPHAGEAL REFLUX 10/23/2011 TRACEE LANGE APRN T 40 1.9 ESSENTIAL HYPERTENSION 10/23/2011 TRACEE LANGE APRN T 530.81 ESOPHAGEAL REFLUX 10/23/2011 DEGROOT DO, GAVI K 401.9 ESSENTIAL HYPERTENSION 10/23/2011 DEGROOT DO, GAVI K 530.81 ESOPHAGEAL REFLUX 10/23/2011 DEGROOT DO, GAVI K 401.9 ESSENTIAL HYPERTENSION 10/23/2011 DEGROOT DO, GAVI K 530.81 ESOPHAGEAL REFLUX 10/23/2011 ANISA MOLINA TRACEE T 40 1.9 ESSENTIAL HYPERTENSION 10/23/2011 TRACEE LANGE APRN T 530.81 ESOPHAGEAL REFLUX 10/23/2011 TRACEE LANGE APRN T 40 1.9 ESSENTIAL HYPERTENSION 10/23/2011 TRACEE LANGE APRN T 530.81 ESOPHAGEAL REFLUX 10/23/2011 KRANTHI PRECIADO [...] 08/04/2012 Ot 414.01 COR ONARY ATHEROSCLEROSIS OF [place] CORON 08/04/2012 Ot 496 CHR AI RWAY [...] LANGE APRN 52 8.9 ORAL MUCOCELE 10/19/2012 528.9 ORAL MUCOCELE 10/19/2012 528.9 ORAL MUCOCELE 10/19/2012 KRANTHI PRECIADO MD 528.9 ORAL MUCOCELE 10/19/2012 KRANTHI PRECIADO MD 528.9 ORAL MUCOCELE 10/19/2012 TRACEE LANGE APRN 52 8.9 ORAL MUCOCELE 10/19/2012 TRACEE LANGE APRN 52 8.9 ORAL MUCOCELE 10/19/2012 TRACEE LANGE APRN 52 8.9 ORAL MUCOCELE 10/19/2012 DEGROOT DO, [...] LANGE APRN T 278.00 OBESITY 10/28/2012 KRANTHI PRECAIDO MD 278.0 0 OBESITY 12/09/2012 TRACEE LANGE APRN 780.79 fatigue 12/09/2012 780.79 fatigue 12/09/2012 780.79 fatigue 12/09/2012 KRANTHI PRECIADO MD 780.7 9 fatigue 12/09/2012 KRANTHI PRECIADO MD 780.7 9 fatigue 12/09/2012 TRACEE LANGE APRN 780.79 fatigue 12/09/2012 TRACEE LANGE APRN 780.79 fatigue 12/09/2012 TRACEE LANGE APRN 780.79 fatigue 12/09/2012 DEGROOT DO GAVI K 780.79 fatigue 12/09/2012 DEGROOT DO, [...] 12/20/2012 Ot 414.01 COR ONARY ATHEROSCLEROSIS OF [place] CORON 12/20/2012 Ot 486 PNEUMO ALEJA, ORGANISM [...] OF PAST NONCOMPLIANCE 12/21/2012 TRACEE LANGE APRN 27 6.7 HYPERKALEMIA 12/21/2012 276.7 HYPE RKALEMIA 12/21/2012 276.7 HYPE RKALEMIA 12/21/2012 KRANTHI PRECIADO MD 276.7 HYPERKALEMIA 12/21/2012 KRANTHI PRECIADO MD 276.7 HYPERKALEMIA 12/21/2012 TRACEE LANGE APRN T 27 6.7 HYPERKALEMIA 12/21/2012 TRACEE LANGE APRN T 27 6.7 HYPERKALEMIA 12/21/2012 TRACEE LANGE APRN T 27 6.7 HYPERKALEMIA 12/21/2012 DEGROOT DO, GAVI K 276.7 HYPERKALEMIA 12/21/2012 DEGROOT DO, GAVI K 276.7 HYPERKALEMIA 12/21/2012 TRACEE LANGE APRN T 27 6.7 HYPERKALEMIA 12/21/2012 TRACEE LANGE APRN [...] MD Ot 414. 01 CORONARY ATHEROSCLEROSIS OF [place] CORON 05/11/2013 NGOC CASTILLO MD Ot 425. [...] ISCHEMIC HEART DISEASE 05/18/2013 TRACEE LANGE APRN T 41 4.8 OTHER SPECIFIED FORMS OF CHRONIC [...] OF CONSCIOUSNESS UNSPECIFIED 05/21/2013 TRACEE LANGE APRN T 414.00 CAD 05/21/2013 TRACEE LANGE APRN 42 5.4 CARDIOMYOPHATHY 05/21/2013 TRACEE LANGE APRN T 854.00 INTRACRANIAL INJURY OF OTHER AND UNSPECI FIED NATURE WITHOUT OPEN INTRACRANIAL WOUND WITH STATE OF CONSCIOUSNESS UNSPECIFIED 05/21/2013 DEGROOT DO, GAVI K 414.00 CAD 05/21/2013 DEGROOT DO, GAVI K 425.4 CARDIOMYOPHATHY 05/21/2013 DEGROOT DO, GVAI K 854.00 INTRACRANIAL INJURY OF OTHER AND [...] V58.66 LONG-TERM (CURRENT) USE OF ASPIRIN 05/30/2013 BRUEGGEMANN MD, SANTHOSH T Ot V58.69 OTH MED,LT,CURRENT USE 06/24/2013 MIKAYLA DO GAVI Alec Ot 041.04 STREPTOCOCCUS INFECTION NOS, GROUP D (EN 06/24/2013 MIKAYLA LANGE GAVI K Ot 041.12 METHICILLIN RESISTANT STAPHYLOCOCCUS AUR 06/24/2013 DEGROOT DO GAVI K Ot 041.84 BACTERIAL INFECTION DUE TO [...] DEGROOT DO Ot 305.70 AMPHETAMINE ABUSE-UNSPEC 06/24/2013 GAVI DEGROOT DO Ot 311 DEPRESSIVE DISORDER NEC 06/24/2013 GAVI DEGROOT DO Ot 345.90 EPILEPSY UNSPEC W/O MENTION INTRACTABLE 06/24/2013 GAVI DEGROOT DO Ot 403.90 HYPTNSV CHR KID DIS, UNSPEC, W CHR KD ST 06/24/2013 GAVI DEGROOT DO Ot 414.01 CORONARY ATHEROSCLEROSIS OF [place] CORON 06/24/2013 GAVI DEGROOT DO Ot 425.4 PRIM CARDIOMYOPATHY NEC 06/24/2013 GAVI DEGROOT DO Ot 438.89 OTH LATE EFFECT-CEREBROVASCULAR DISEASE 06/24/2013 GAVI DEGROOT DO Ot 491.20 OBSTR CHRONIC BRONCHITIS, W/O EXACERBATI 06/24/2013 GAVI DEGOROT DO Ot 530.81 ESOPHAGEAL REFLUX 06/24/2013 GAVI DEGROOT DO Ot 585.9 CHRONIC KIDNEY DISEASE, UNSPECIFIED 06/24/2013 GAVI DEGROOT DO Ot 682.3 CELLULITIS OF ARM 06/24/2013 GAVI DEGROOT DO Ot 682.6 CELLULITIS OF LEG 06/24/2013 AGUSTÍN DEGROOT DOA Alec Ot 728.87 MUSCLE WEAKNESS (GENERALIZED) 06/24/2013 GAVI DEGROOT DO Ot 785.0 TACHYCARDIA NOS 07/29/2013 BRI VILLASEÑOR SUPERVISOR IN CIRCUIT TESTING Ot 682.6 CELLULITIS OF LEG 09/14/2013 ABELARDO AMANDA MD Ot 070. 70 UNSPECIFIED VIRAL 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 09/14/2013 ABELARDO AMANDA MD Ot 305. 20 CANNABIS ABUSE-UNSPEC 09/14/2013 ABELARDO AMANDA MD Ot 305. 70 AMPHETAMINE ABUSE-UNSPEC 09/14/2013 ABELARDO AMANDA MD Ot 338. 29 OTHER CHRONIC PAIN 09/14/2013 ABELARDO AMANDA MD Ot 403. 90 HYPTNSV CHR KID DIS, UNSPEC, W CHR KD ST 09/14/2013 ABELARDO AMANDA MD Ot 414. 01 CORONARY ATHEROSCLEROSIS OF [place]ULT [place] CORON 09/14/2013 ABELARDO AMANDA MD Ot 425. [...] Ot 786.2 COUGH 09/18/2013 TRACEE LANGE APRN 78 6.2 COUGH 09/18/2013 TRACEE LANGE APRN 78 6.2 COUGH 09/18/2013 TRACEE LANGE APRN 78 6.2 COUGH 09/18/2013 GAVI DEGROOT DO 786.2 COUGH 09/18/2013 GAVI DEGROOT DO 786.2 COUGH 09/18/2013 TRACEE LANGE APRN T [...] Ot 789.00 ABDOMINAL PAIN, UNSPECIFIED SITE 02/04/2014 OHLA BRIGHT DO Ot 300.00 ANXIETY STATE NOS 02/04/2014 HOLA BRIGHT DO Ot 491.21 OBSTR CHRONIC BRONCHITIS, W (ACUTE) EXAC 02/04/2014 HOLA BRIGHT DO Ot 786.50 CHEST PAIN NOS 02/04/2014 HOLA BRIGHT DO Ot V15.81 HX OF PAST NONCOMPLIANCE 02/07/2014 TRACEE LANGE APRN T 78 6.6 SWELLING MASS OR LUMP IN CHEST 02/07/2014 GAVI DEGROOT DO 786.6 SWELLING MASS OR LUMP IN CHEST 02/07/2014 GAVI DEGROOT DO 786.6 SWELLING MASS OR LUMP IN CHEST 02/07/2014 TRACEE LANGE APRN T 78 6.6 SWELLING MASS OR LUMP IN CHEST 02/07/2014 TRACEE LANGE APRN T 78 6.6 SWELLING MASS OR LUMP IN CHEST 02/07/2014 KRANTHI PRECIADO MD 786.6 SWELLING MASS OR LUMP IN CHEST 03/18/2014 NEERAJ VILLA APRN Ot 491.20 OBSTR CHRONIC BRONCHITIS, W/O EXACERBATI 03/18/2014 NEERAJ VILLA APRN Ot 786.05 SHORTNESS OF BREATH 04/08/2014 GAVI DEGROOT DO Ot 285.29 ANEMIA OF OTHER CHRONIC DISEASE 04/08/2014 GAVI DEGROOT DO Ot 296.80 BIPOLAR DISORDER, UNSPECIFIED 04/08/2014 MIKAYLA [...] CHR PULMON HEART DIS NEC 04/08/2014 MIKAYLA DO GAVI K Ot 424.0 MITRAL VALVE DISORDER 04/08/2014 DEGROOT DO GAVI K Ot 425.4 PRIM CARDIOMYOPATHY NEC 04/08/2014 MIKAYLA LANGE GAVI K Ot 428.0 CONGESTIVE HEART FAILURE NOS 04/08/2014 MIKAYLA LANGE GAVI K Ot 428.23 ACUTE CHRONIC SYSTOLIC HRT FAILURE 04/08/2014 DEGROOT DO GAVI K Ot 466.0 ACUTE BRONCHITIS 04/08/2014 DEGROOT DO GAVI K Ot 493.22 CHRONIC OBSTRUCTIVE ASTHMA, W (ACUTE) EX 04/08/2014 EDGROOT DO GAVI K Ot 518.84 ACUTE AND CHRONIC RESPIRATORY FAILURE 04/08/2014 MIKAYLA LANGE GAVI K Ot 530.81 ESOPHAGEAL REFLUX 04/08/2014 DEGROOT DO GAVI K Ot 585.9 CHRONIC KIDNEY DISEASE, UNSPECIFIED 04/08/2014 MIKAYLA LANGE GAVI K Ot V15.52 PERSONAL HISTORY OF TRAUMATIC BRAIN INJU 04/08/2014 DEGROOT DO GAVI Michael Ot V45.02 AUTO IMPLANTABLE CARDIAC DEFIBRILLATOR I 04/09/2014 NEERAJ VILLA 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 Ot 486 PNEUMONIA, ORGANISM NOS 04/09/2014 NEERAJ VILLA 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 Ot 511 .9 PLEURAL EFFUSION NOS 05/25/2014 [...] ORTIZ Ot E888.9 FALL NOS 06/10/2014 MIKAYLA LANGE, GAVI K Ot 038.9 SEPTICEMIA NOS 06/10/2014 MIKAYLA LANGE, GAVI K Ot 041.11 METHICILLIN SUSCEPTIBLE STAPHYLOCOCCUS A 06/10/2014 MIKAYLA LANGE, GAVI K Ot 276.7 HYPERPOTASSEMIA 06/10/2014 MIKAYLA LANGE GAVI K Ot 285.29 ANEMIA OF OTHER CHRONIC DISEASE 06/10/2014 MIKAYLA LANGE, GAVI K Ot 305.71 AMPHETAMINE ABUSE-CONTIN 06/10/2014 DEGROOT , GAVI K Ot 397.0 TRICUSPID VALVE DISEASE 06/10/2014 MIKAYLA LANGE, GAVI K Ot 403.90 HYPTNSV CHR KID DIS, UNSPEC, W CHR KD ST 06/10/2014 DEGROOT DO, GAVI K Ot 425.4 PRIM CARDIOMYOPATHY NEC 06/10/2014 DEGROOT , GAVI K Ot 428.0 CONGESTIVE HEART FAILURE NOS 06/10/2014 MIKAYLA LANGE, GAVI K Ot 496 CHR AIRWAY OBSTRUCT NEC 06/10/2014 MIKAYLA LANGE GAVI K Ot 518.83 CHRONIC RESPIRATORY FAILURE 06/10/2014 MIKAYLA LANGE GAVI Alec Ot 585.3 CHRONIC KIDNEY DISEASE, STAGE III [...] MD Ot M54.5 LOW BACK PAIN 01/27/2016 CHRISSY GONZALES, SANTHOSH Castellano Ot R74.8 ABNORMAL LEVELS OF OTHER SERUM ENZYMES 01/27/2016 Ot 496 CHR AI RWAY OBSTRUCT NEC 01/27/2016 Ot 780.09 OTH ER ALTERATION OF CONSCIOUSNESS 01/27/2016 Ot 780.39 OTH ER CONVULSIONS 01/27/[address] PAIN NEC 01/27/2016 VASILIY GONZALES, ABELARDO Valdovinos Ot 397. 0 TRICUSPID VALVE DISEASE 01/27/2016 VASILIY GONZALES, ABELARDO Valdovinos Ot 424. 0 MITRAL VALVE DISORDER 01/27/2016 [...] LOW BACK PAIN 01/29/2016 CHRISSY GONZALES, SANTHOSH T Ot R74.8 ABNORMAL LEVELS OF OTHER SERUM [...] NOT SPECIF 08/05/2016 ABELARDO AMANDA MD Ot 397. 0 TRICUSPID [...] Ot Z23 ENCOUNTER FOR IMMUNIZATION 08/05/2016 KAILA HOLA K Ot Z79.899 OTHER ENGAGEMENT LIAISON (CURRENT) DRUG THERAPY 08/05/2016 KAILA , HOLA [...] MD Ot I25.10 ATHSCL HEART DISEASE OF [place] CORONARY 11/23/2016 QUIN JONES MD Ot J44.9 CHRONIC OBSTRUCTIVE PULMONARY DISEASE, U 11/23/2016 QUIN JONES MD Ot R05 COUGH 11/23/2016 QUIN JONES MD Ot Z79.899 OTHER NURSING HOME (CURRENT) DRUG THERAPY 11/26/2016 QUIN JONES MD Ot I25.10 ATHSCL HEART DISEASE OF [place] CORONARY 11/26/2016 QUIN JONES MD Ot J44.9 CHRONIC OBSTRUCTIVE PULMONARY DISEASE, U 11/26/2016 QUIN JONES MD Ot R05 COUGH 11/26/2016 QUIN JONES MD, Ot Z79.899 OTHER NURSING HOME (CURRENT) DRUG THERAPY 12/26/2016 KAILA DO, HOLA K Ot I10 ESSENTIAL (PRIMARY) HYPERTENSION 12/26/2016 KAILA DO, HOLA K Ot J44.9 CHRONIC OBSTRUCTIVE PULMONARY DISEASE, U 12/26/2016 KAILA DO, HOLA K Ot L03.115 CELLULITIS OF RIGHT LOWER LIMB 12/26/2016 KAILA DO, HOLA K Ot N39.0 URINARY TRACT INFECTION, SITE NOT SPECIF 12/26/2016 KAILA DO HOLA K Ot R30.0 DYSURIA 12/26/2016 KAILA DO HOLA K Ot Z23 ENCOUNTER FOR IMMUNIZATION 12/26/2016 KAILA DO, HOLA K Ot Z79.899 OTHER NURSING HOME (CURRENT) DRUG THERAPY 12/26/2016 KAILA DO, [...] MD Ot I25.10 ATHSCL HEART DISEASE OF [place] CORONARY 03/06/2017 QUIN JONES MD, Ot J44.9 CHRONIC OBSTRUCTIVE PULMONARY DISEASE, U 03/06/2017 QUIN JONES MD Ot K59.00 CONSTIPATION, UNSPECIFIED 03/06/2017 QUIN JONES MD Ot R10.30 LOWER ABDOMINAL PAIN, UNSPECIFIED 03/06/2017 QUIN JONES MD Ot Z79.899 OTHER ENGAGEMENT LIAISON (CURRENT) DRUG THERAPY 03/06/2017 ABELARDO AMANDA MD Ot 397. 0 TRICUSPID VALVE DISEASE 03/06/2017 ABELARDO AMANDA MD Ot 424. 0 MITRAL VALVE DISORDER 03/06/2017 ABELARDO AMANDA MD Ot 428. 0 CONGESTIVE HEART FAILURE NOS 03/06/2017 ABELARDO AMANDA MD Ot 428. 0 CONGESTIVE HEART FAILURE NOS 03/07/2017 QUIN JONES MD Ot I16.0 HYPERTENSIVE URGENCY 03/07/2017 QUIN JONES MD Ot I25.10 ATHSCL HEART DISEASE OF [place] CORONARY 03/07/2017 QUIN JONES MD Ot J44.9 CHRONIC OBSTRUCTIVE PULMONARY DISEASE, U 03/07/2017 QUIN JONES MD, Ot K59.00 CONSTIPATION, UNSPECIFIED 03/07/2017 QUIN JONES MD Ot R10.30 LOWER ABDOMINAL PAIN, UNSPECIFIED 03/07/2017 QUIN JONES MD Ot Z79.899 OTHER NURSING HOME (CURRENT) DRUG THERAPY 06/18/2017 ABELARDO AMANDA [...] ORTIZ Ot I25.10 ATHSCL HEART DISEASE OF [place] CORONARY 06/18/2017 STAR ORTIZ Ot I25.2 OLD [...] C WITHOUT HE 02/04/2018 MICHAEL BURRELL MD J Ot F31. 9 BIPOLAR DISORDER, UNSPECIFIED 02/04/2018 MICHAEL BURRELL MD J Ot F41. 9 ANXIETY DISORDER, UNSPECIFIED 02/04/2018 MICHAEL BURRELL MD Ot G40.909 EPILEPSY, UNSP, NOT INTRACTABLE, WITHOUT 02/04/2018 MICHAEL BURRELL MD Ot I10 ESSENTIAL (PRIMARY) HYPERTENSION 02/04/2018 MICHAEL BURRELL MD Ot I25. 10 ATHSCL HEART DISEASE OF [place] CORONARY 02/04/2018 MICHAEL BURRELL MD Ot I25. [...] 02/04/2018 MICHAEL BURRELL MD Ot Z79. 51 NURSING HOME (CURRENT) USE OF INHALED STERO 02/04/2018 MICHAEL BURRELL MD Ot Z79. 52 NURSING HOME (CURRENT) USE OF SYSTEMIC STER 02/04/2018 [...] MD Ot Z88. 8 ALLERGY STATUS TO [facility] DRUG/MEDS/BIOL SUB 02/04/2018 MICHAEL BURRELL MD [...] Ot I25. 10 ATHSCL HEART DISEASE OF [place] CORONARY 02/05/2018 MICHAEL BURRELL MD Ot I25. [...] R56. 9 UNSPECIFIED CONVULSIONS 02/05/2018 MICHAEL BURRELL MD, Ot Z79. 51 NURSING HOME (CURRENT) USE OF INHALED STERO 02/05/2018 MICHAEL BURRELL MD, Ot Z79. 52 NURSING HOME (CURRENT) USE OF SYSTEMIC STER 02/05/2018 MICHAEL BURRELL MD Ot Z82. 49 FAMILY HX OF ISCHEM HEART DIS AND OTH DI 02/05/2018 MICHAEL BURRELL MD Ot Z85. 41 PERSONAL HISTORY OF MALIGNANT NEOPLASM O 02/05/2018 MICHAEL BURRELL MD Ot Z87. 01 PERSONAL HISTORY OF PNEUMONIA (RECURRENT 02/05/2018 MICHAEL BURRELL MD, Ot Z87. 19 PERSONAL HISTORY OF OTHER DISEASES OF TH 02/05/2018 MICHAEL BURRELL MD, Ot Z87.440 PERSONAL HISTORY OF URINARY (TRACT) INFE 02/05/2018 MICHAEL BURRELL MD, Ot Z87.448 PERSONAL HISTORY OF OTHER DISEASES OF UR 02/05/2018 MICHAEL BURRELL MD Ot Z87. 59 PERSONAL HISTORY OF COMP OF PREG, CHLDBR 02/05/2018 MICHAEL BURRELL MD, Ot Z87.820 PERSONAL HISTORY OF TRAUMATIC BRAIN INJU 02/05/2018 MICHAEL BURRELL MD Ot Z88. 8 ALLERGY STATUS TO [facility] DRUG/MEDS/BIOL SUB 02/05/2018 MICHAEL BURRELL MD [...] DO Ot I25.10 ATHSCL HEART DISEASE OF [place] CORONARY 02/24/2018 GAVI DEGROOT DO Ot I27.20 PULMONARY HYPERTENSION, UNSPECIFIED 02/24/2018 GAVI DEGROOT DO Ot I34.0 NONRHEUMATIC MITRAL (VALVE) INSUFFICIENC 02/24/2018 GAVI DEGROOT DO Ot I42.0 DILATED CARDIOMYOPATHY 02/24/2018 AGUSTÍN DEGROOT DOA K Ot I50.21 ACUTE SYSTOLIC (CONGESTIVE) HEART FAILUR 02/24/2018 GAVI DEGROOT DO Ot N18.9 CHRONIC KIDNEY DISEASE, UNSPECIFIED 02/24/2018 AGUSTÍN DEGROOT DOA K Ot Z79.89 9 OTHER NURSING HOME (CURRENT) DRUG THERAPY 02/24/2018 AGUSTÍN DEGROOT DOA Alec Ot G40.90 9 EPILEPSY, UNSP, NOT INTRACTABLE, WITHOUT 02/24/2018 MIKAYLA LANGE, GAVI K Ot G89.29 OTHER CHRONIC PAIN 02/24/2018 AGUSTÍN DEGROOT DOA K Ot I12.9 HYPERTENSIVE CHRONIC KIDNEY DISEASE W ST 02/24/2018 AGUSTÍN DEGROOT DOA K Ot I25.10 ATHSCL HEART DISEASE OF [place] CORONARY 02/24/2018 AGUSTÍN DEGROOT DOA K Ot I27.20 PULMONARY HYPERTENSION, UNSPECIFIED 02/24/2018 AGUSTÍN DEGROOT DOA K Ot I34.0 NONRHEUMATIC MITRAL (VALVE) INSUFFICIENC 02/24/2018 GAVI DEGROOT DO K Ot I42.0 DILATED CARDIOMYOPATHY 02/24/2018 AGUSTÍN DEGROOT DOA K Ot I50.21 ACUTE SYSTOLIC (CONGESTIVE) HEART FAILUR 02/24/2018 GAVI DEGROOT DO Ot N18.9 CHRONIC KIDNEY DISEASE, UNSPECIFIED 02/24/2018 GAVI DEGROOT DO K Ot Z79.89 9 OTHER ENGAGEMENT LIAISON (CURRENT) DRUG THERAPY 05/15/2018 Ot A41.9 SEPS [...] Ot I25.10 ATH SCL HEART DISEASE OF 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 05/15/2018 Ot J43.9 EMPH YSEMA, UNSPECIFIED 05/15/2018 Ot K56.600 PA RTIAL INTESTINAL OBSTRUCTION, UNSPECIF 05/15/2018 Ot L03.115 CE LLULITIS OF RIGHT LOWER LIMB 05/15/2018 Ot L03.116 CE LLULITIS OF LEFT LOWER LIMB 05/15/2018 Ot N17.9 ACUT E KIDNEY FAILURE, UNSPECIFIED 05/15/2018 Ot N18.9 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 OFFICER MALIKA KIDNEY DISEASE, UNSPECIFIED 05/15/2018 Ot N39.0 URIN MIKI TRACT INFECTION, SITE NOT SPECIF 05/15/2018 Ot [...] SMO 09/10/2018 NEERAJ VILLA APRN Ot Z79.51 NURSING HOME (CURRENT) USE OF INHALED STERO 09/10/2018 NEERAJ VILLA APRN Ot Z79.52 ENGAGEMENT LIAISON (CURRENT) USE OF SYSTEMIC STER 09/10/2018 NEERAJ [...] .8 ALLERGY STATUS TO [facility] DRUG/MEDS/BIOL SUB 09/10/2018 [...] I10 ESSENTIAL (PRIMARY) HYPERTENSION 09/14/2018 NEERAJ VILLA APRN, Ot J18 .9 PNEUMONIA, UNSPECIFIED ORGANISM 09/14/2018 NEERAJ VILLA APRN Ot J44 .9 CHRONIC OBSTRUCTIVE PULMONARY DISEASE, U 09/14/2018 NEERAJ VILAL APRN Ot R56 .9 UNSPECIFIED CONVULSIONS 09/14/2018 NEERAJ VILLA APRN Ot Z77.22 CNTCT W AND EXPSR TO ENVIRON TOBACCO SMO 09/14/2018 NEERAJ VILLA APRN Ot Z79.51 ENGAGEMENT LIAISON (CURRENT) USE OF INHALED STERO 09/14/2018 NEERAJ VILLA APRN Ot Z79.52 NURSING HOME (CURRENT) USE OF SYSTEMIC STER 09/14/2018 [...] APRN Ot Z88 .8 ALLERGY STATUS TO [facility] DRUG/MEDS/BIOL SUB 09/14/2018 NEERAJ VILLA APRN Ot Z90.710 ACQUIRED ABSENCE OF BOTH CERVIX AND UTER 09/14/2018 NEERAJ VILLA APRN Ot Z98.890 OTHER SPECIFIED POSTPROCEDURAL STATES 09/18/2018 Paolo PERKINS MD Ot 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 09/18/2018 Paolo PERKINS MD Ot Z11 .2 ENCOUNTER [...] SMO 09/29/2018 NEERAJ VILLA APRN Ot Z79.51 NURSING HOME (CURRENT) USE OF INHALED STERO 09/29/2018 NEERAJ VILLA APRN Ot Z79.52 NURSING HOME (CURRENT) USE OF SYSTEMIC STER 09/29/2018 NEERAJ [...] BOTH MITRAL AND T 11/10/2018 Paolo PERKINS MD, Ot Z11 .2 ENCOUNTER FOR SCREENING FOR OTHER BACTER 05/04/2019 Paolo PERKINS MD Ot 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 05/04/2019 Paolo PERKINS MD Ot I27.20 PULMONARY HYPERTENSION, UNSPECIFIED 05/04/2019 Paolo [...] OBJE 05/04/2019 QUIN JONES MD Ot Z79.51 NURSING HOME (CURRENT) USE OF INHALED STERO 05/04/2019 [...] JONES MD, Ot Z88.8 ALLERGY STATUS TO [facility] DRUG/MEDS/BIOL SUB 05/04/2019 QUIN JONES MD, Ot Z90.710 ACQUIRED ABSENCE OF BOTH CERVIX AND UTER 05/04/2019 QUIN JONES MD Ot Z95.9 PRESENCE OF CARDIAC AND VASCULAR IMPLANT 05/04/2019 QUIN JONES MD Ot Z98.890 OTHER SPECIFIED POSTPROCEDURAL STATES 05/04/2019 QUIN JONES MD Ot Z99.81 DEPENDENCE ON SUPPLEMENTAL OXYGEN 05/10/2019 QUIN JONES MD Ot F31.9 BIPOLAR DISORDER, UNSPECIFIED 05/10/2019 QIUN JONES MD, Ot F41.9 ANXIETY DISORDER, UNSPECIFIED 05/10/2019 QUIN JONES MD, Ot G40.909 EPILEPSY, UNSP, NOT INTRACTABLE, WITHOUT 05/10/2019 QUIN JONES MD Ot I10 ESSENTIAL (PRIMARY) HYPERTENSION 05/10/2019 QUIN JONES MD, Ot J44.9 CHRONIC OBSTRUCTIVE PULMONARY DISEASE, U 05/10/2019 QUIN JONES MD, Ot K21.9 GASTRO-ESOPHAGEAL REFLUX DISEASE WITHOUT 05/10/2019 QUIN JONES MD, Ot R07.9 CHEST PAIN, UNSPECIFIED 05/10/2019 QUIN JONES MD, Ot S81.802A UNSPECIFIED OPEN WOUND, LEFT LOWER LEG, 05/10/2019 QUIN JONES MD, Ot W22.8XXA STRIKING AGAINST OR STRUCK BY OTHER OBJE 05/10/2019 QUIN JONES MD, Ot Z79.51 NURSING HOME (CURRENT) USE OF INHALED STERO 05/10/2019 QUIN JONES MD Ot Z82.49 FAMILY HX [...] JONES MD Ot Z88.8 ALLERGY STATUS TO [facility] DRUG/MEDS/BIOL SUB 05/10/2019 QUIN JONES MD Ot Z90.710 ACQUIRED ABSENCE OF BOTH CERVIX AND UTER 05/10/2019 QUIN JONES MD Ot Z95.9 PRESENCE OF CARDIAC AND VASCULAR IMPLANT 05/10/2019 QUIN JONES MD Ot Z98.890 OTHER SPECIFIED POSTPROCEDURAL STATES 05/10/2019 QUIN JONES MD Ot Z99.81 DEPENDENCE ON SUPPLEMENTAL OXYGEN 07/05/2019 RAJAN VALDOVINOS DO Ot B19.20 UNSPECIFIED VIRAL 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 07/05/2019 HÉCTOR VALDOVINOS DOI Ot B96.1 KLEBSIELLA PNEUMONIAE THE CAUSE OF DI 07/05/2019 ARUNA LANGE RAJAN Ot D64.9 ANEMIA, UNSPECIFIED 07/05/2019 ARUNA LANGE RAJAN Ot E87.2 ACIDOSIS 07/05/2019 ARUNA LANGE RAJAN Ot E87.6 HYPOKALEMIA 07/05/2019 ARUNA LANGE RAJAN [...] 4 HEMIPLGA FOLLOWING CEREBRAL INFRC AFFECT 07/05/2019 ARUNA LANGE RAJAN Ot I95.9 HYPOTENSION, UNSPECIFIED 07/05/2019 ARUNA LANGE RAJAN Ot J44.9 CHRONIC OBSTRUCTIVE PULMONARY DISEASE, U 07/05/2019 ARUNA LANGE RAJAN Ot J96.00 ACUTE RESPIRATORY FAILURE, UNSP W HYPOXI 07/05/2019 ARUNA LANGE RAJAN Ot K21.9 GASTRO-ESOPHAGEAL REFLUX DISEASE WITHOUT 07/05/2019 ARUNA LANGE RAJAN Ot M19.91 PRIMARY OSTEOARTHRITIS, UNSPECIFIED SITE 07/05/2019 ARUNA LANGE RAJAN Ot N39.0 URINARY TRACT INFECTION, SITE NOT SPECIF 07/05/2019 ARUNA LANGE RAJAN Ot R41.82 ALTERED MENTAL STATUS, UNSPECIFIED 07/05/2019 [...] LANGE RAJAN Ot I16.0 HYPERTENSIVE URGENCY 07/10/2019 VALDOVINOS DO, RAJAN Ot I21.A1 MYOCARDIAL INFARCTION TYPE 2 07/10/2019 ARUNA LANGE RAJAN Ot I25.10 ATHSCL HEART DISEASE OF [place] CORONARY 07/10/2019 ARUNA LANGE RAJAN Ot I38 ENDOCARDITIS, VALVE UNSPECIFIED 07/10/2019 ARUNA LANGE RAJAN Ot J44.9 CHRONIC OBSTRUCTIVE PULMONARY DISEASE, U 07/10/2019 VALDOVINOS DO RAJAN Ot K21.9 GASTRO-ESOPHAGEAL REFLUX DISEASE WITHOUT 07/10/2019 VALDOVINOS DO RAJAN Ot K56.7 ILEUS, UNSPECIFIED 07/10/2019 VALDOVINOS DO RAJAN Ot N17.9 ACUTE KIDNEY FAILURE, UNSPECIFIED 07/10/2019 VALDOVINOS DO RAJAN Ot R07.9 CHEST PAIN, UNSPECIFIED 07/10/2019 VALDOVINOS DO RAJAN Ot R78.89 FINDING OF OTH SUBSTANCES, NOT NORMALLY 07/10/2019 ARUNA LANGE RAJAN Ot Z90.71 0 ACQUIRED ABSENCE OF BOTH CERVIX AND UTER 07/10/2019 ARUNA LANGE RAJAN Ot Z90.72 2 ACQUIRED [...] Ot I95.9 HYPOTENSION, UNSPECIFIED 08/17/2019 KWAKU GAONA MD, Ot J44.9 CHRONIC OBSTRUCTIVE PULMONARY DISEASE, U 08/17/2019 KWAKU GAONA MD, Ot J90 PLEURAL EFFUSION, NOT ELSEWHERE CLASSIFI 08/17/2019 KWAKU GAONA MD Ot K21.9 GASTRO-ESOPHAGEAL REFLUX DISEASE WITHOUT 08/17/2019 KWAKU GAONA MD, Ot M19.9 1 PRIMARY OSTEOARTHRITIS, UNSPECIFIED SITE 08/17/2019 KWAKU GAONA MD, Ot M54.9 DORSALGIA, UNSPECIFIED 08/17/2019 KWAKU GAONA MD Ot N17.9 ACUTE KIDNEY FAILURE, UNSPECIFIED 08/17/2019 KWAKU GAONA MD, Ot N18.9 CHRONIC KIDNEY DISEASE, UNSPECIFIED 08/17/2019 KWAKU GAONA MD Ot R26.8 1 UNSTEADINESS ON FEET 08/17/2019 KWAKU GAONA MD Ot R41.8 2 ALTERED MENTAL STATUS, UNSPECIFIED 08/17/2019 KWAKU GAONA MD Ot R79.8 9 OTHER SPECIFIED ABNORMAL FINDINGS OF BLO 08/17/2019 KWAKU GAONA MD Ot Z85.4 1 PERSONAL HISTORY OF MALIGNANT NEOPLASM O 08/17/2019 KWAKU GAONA MD Ot Z91.1 9 PATIENT'S NONCOMPLIANCE W [facility] TR 08/27/2019 MATTHEW DAVID MD Ot B19.20 UNSPECIFIED VIRAL 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 08/27/2019 MATTHEW DAVID MD Ot D63 .8 ANEMIA IN OTHER CHRONIC DISEASES CLASSIF 08/27/2019 MATTHEW DAVID MD Ot E11.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 08/27/2019 MATTHEW DAVID MD Ot E87 .2 ACIDOSIS 08/27/2019 MATTHEW DAVID MD, Ot E87 .5 HYPERKALEMIA 08/27/2019 MATTHEW DAVID MD Ot F15.10 OTHER STIMULANT ABUSE, UNCOMPLICATED 08/27/2019 MATTHEW DAVID MD Ot F17.210 NICOTINE DEPENDENCE, CIGARETTES, UNCOMPL 08/27/2019 MATTHEW DAVID MD, Ot F31 .9 BIPOLAR DISORDER, UNSPECIFIED 08/27/2019 MATTHEW DAVID MD, Ot F41 .9 ANXIETY DISORDER, UNSPECIFIED 08/27/2019 MATTHEW DAVID MD, Ot G40.909 EPILEPSY, UNSP, NOT INTRACTABLE, WITHOUT 08/27/2019 MATTHEW DAVID MD, Ot I13 .0 HYP HRT CHR [facility] DIS W HRT FAIL AND ST 08/27/2019 MATTHEW DAVID MD, Ot I25.10 ATHSCL HEART DISEASE OF [place] CORONARY 08/27/2019 MATTHEW DAVID MD, Ot I25 .2 OLD MYOCARDIAL INFARCTION 08/27/2019 MATTHEW DAVID MD, Ot I34 .0 NONRHEUMATIC MITRAL (VALVE) INSUFFICIENC 08/27/2019 MATTHEW DAVID MD, Ot I42 .8 OTHER CARDIOMYOPATHIES 08/27/2019 MATTHEW DAVID MD, Ot I50 .9 HEART FAILURE, UNSPECIFIED 08/27/2019 MATTHEW DAVID MD, Ot I69.354 HEMIPLGA FOLLOWING [...] GASTRO-ESOPHAGEAL REFLUX DISEASE WITHOUT 08/27/2019 MATTHEW DAVID MD, Ot N18 .9 CHRONIC KIDNEY DISEASE, UNSPECIFIED 08/27/2019 MATTHEW DAVID MD, Ot N32.81 OVERACTIVE BLADDER 08/27/2019 MATTHEW DAVID MD, Ot R41.82 ALTERED MENTAL STATUS, UNSPECIFIED 08/27/2019 MATTHEW DAVID MD, Ot R79.89 OTHER SPECIFIED ABNORMAL FINDINGS OF BLO 08/27/2019 MATTHEW DAVID MD, Ot Z79.899 OTHER ENGAGEMENT LIAISON (CURRENT) DRUG THERAPY 08/27/2019 MATTHEW DAVID MD, [...] Ot E87 .5 HYPERKALEMIA 08/28/2019 MATTHEW DAVID MD Ot F15.10 OTHER STIMULANT ABUSE, UNCOMPLICATED 08/28/2019 MATTHEW DAVID MD Ot F17.210 NICOTINE DEPENDENCE, CIGARETTES, UNCOMPL 08/28/2019 MATTHEW DAVID MD Ot F31 .9 BIPOLAR DISORDER, UNSPECIFIED 08/28/2019 MATTHEW DAVID MD Ot F41 .9 ANXIETY DISORDER, UNSPECIFIED 08/28/2019 MATTHEW DAVID MD, Ot G40.909 EPILEPSY, UNSP, NOT INTRACTABLE, WITHOUT 08/28/2019 MATTHEW DAVID MD Ot I13 .0 HYP HRT CHR [place] DIS W HRT FAIL AND ST 08/28/2019 MATTHEW DAVID MD Ot I25.10 ATHSCL HEART DISEASE OF [place] CORONARY 08/28/2019 MATTHEW DAVID MD Ot I25 .2 OLD MYOCARDIAL INFARCTION 08/28/2019 MATTHEW DAVID MD Ot I34 .0 NONRHEUMATIC MITRAL (VALVE) INSUFFICIENC 08/28/2019 MATTHEW DAVID MD Ot I42 .8 OTHER CARDIOMYOPATHIES 08/28/2019 MATTHEW DAVID MD Ot I50 .9 HEART FAILURE, UNSPECIFIED 08/28/2019 [...] 08/28/2019 MATTHEW DAVID MD, Ot Z79.899 OTHER ENGAGEMENT LIAISON (CURRENT) DRUG THERAPY 08/28/2019 MATTHEW DAVID MD, Ot Z87.820 PERSONAL HISTORY OF TRAUMATIC BRAIN INJU 08/28/2019 MATTHEW DAVID MD, Ot Z91.19 PATIENT'S NONCOMPLIANCE W [facility] 08/28/2019 MATTHEW DAVID MD, [...] MD, Ot I25.10 ATHSCL HEART DISEASE OF [place] CORONARY 08/29/2019 MATTHEW DAVID MD, Ot I25 [...] 08/29/2019 MATTHEW DAVID MD, Ot Z79.899 OTHER NURSING HOME (CURRENT) DRUG THERAPY 08/29/2019 MATTHEW DAVID MD, Ot Z87.820 PERSONAL HISTORY OF TRAUMATIC BRAIN INJU 08/29/2019 MATTHEW DAVID MD, Ot Z91.19 PATIENT'S NONCOMPLIANCE W [facility] 08/29/2019 MATTHEW DAVID MD, Ot [...] DISORDERS OF PHOSPHORUS METABOLISM 08/29/2019 MATTHEW DAVID MD, Ot E87 .2 [...] MD Ot I25.10 ATHSCL HEART DISEASE OF [place] CORONARY 08/29/2019 MATTHEW DAVID MD Ot I25 .2 OLD MYOCARDIAL INFARCTION 08/29/2019 MATTHEW DAVID MD Ot I34 .0 NONRHEUMATIC MITRAL (VALVE) INSUFFICIENC 08/29/2019 MATTHEW DAVID MD, Ot I42 .8 OTHER CARDIOMYOPATHIES 08/29/2019 MATTHEW DAVID MD, Ot I50 .9 HEART FAILURE, UNSPECIFIED 08/29/2019 MATTHEW DAVID MD Ot 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 INFRC AFFECT 08/29/2019 MATTHEW DAVID MD Ot I95 .9 HYPOTENSION, UNSPECIFIED 08/29/2019 MATTHEW [...] DAVID MD, Ot T43.595A ADVERSE EFFECT OF [facility] ANTIPSYCHOTICS AND 08/29/2019 MATTHEW DAVID MD, Ot Z79.899 OTHER ENGAGEMENT LIAISON (CURRENT) DRUG THERAPY 08/29/2019 MATTHEW DAVID MD, Ot Z87.820 PERSONAL HISTORY OF TRAUMATIC BRAIN INJU 08/29/2019 MATTHEW DAVID MD, Ot Z91.19 PATIENT'S NONCOMPLIANCE W OT MEDICAL TR 08/29/2019 MATTHEW DAVID MD, Ot Z99.81 DEPENDENCE ON SUPPLEMENTAL OXYGEN 09/18/2019 RAJAN VALDOVINOS DO Ot D63.8 ANEMIA IN OTHER CHRONIC DISEASES CLASSIF 09/18/2019 RAJAN VALDOVINOS DO Ot E11.22 TYPE 2 DIABETES MELLITUS W 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 09/18/2019 RAJAN VALDOVINOS DO Ot E11.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 09/18/2019 RAJAN VALDOVINOS DO Ot E83.39 OTHER DISORDERS OF PHOSPHORUS METABOLISM 09/18/2019 RAJAN VALDOVINOS DO Ot E87.5 HYPERKALEMIA 09/18/2019 RAJAN VALDOVINOS DO Ot F10.20 ALCOHOL DEPENDENCE, UNCOMPLICATED 09/18/2019 RAJAN VALDOVINOS DO Ot 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, CIGARETTES, UNCOMPL 09/18/2019 RAJAN VALDOVINOS DO Ot F31.9 BIPOLAR DISORDER, UNSPECIFIED 09/18/2019 ARUNA LANGE RAJAN Ot F41.9 ANXIETY DISORDER, UNSPECIFIED 09/18/2019 ARUNA LANGE RAJAN Ot G40.90 1 EPILEPSY, UNSP, NOT INTRACTABLE, WITH ST 09/18/2019 ARUNA LANGE RAJAN Ot I08.1 RHEUMATIC DISORDERS OF BOTH MITRAL AND T 09/18/2019 ARUNA LANGE RAJAN Ot I13.0 HYP HRT CHR [place] DIS W HRT FAIL AND ST 09/18/2019 ARUNA LANGE RAJAN Ot I25.10 ATHSCL HEART DISEASE OF [place] CORONARY 09/18/2019 ARUNA DO RAJAN Ot I25.2 OLD MYOCARDIAL INFARCTION 09/18/2019 ARUNA LANGE RAJAN Ot I42.9 CARDIOMYOPATHY, UNSPECIFIED 09/18/2019 ARUNA LANGE RAJAN Ot I50.22 CHRONIC SYSTOLIC (CONGESTIVE) HEART FAIL 09/18/2019 ARUNA LANGE RAJAN Ot J44.9 CHRONIC OBSTRUCTIVE PULMONARY DISEASE, U 09/18/2019 ARUNA LANGE RAJAN Ot J96.01 ACUTE RESPIRATORY FAILURE WITH HYPOXIA 09/18/2019 ARUNA LANGE RAJAN Ot K21.9 GASTRO-ESOPHAGEAL REFLUX DISEASE WITHOUT 09/18/2019 ARUNA DO RAJAN Ot M19.90 UNSPECIFIED OSTEOARTHRITIS, UNSPECIFIED 09/18/2019 ARUNA LANGE RAJAN Ot M54.2 CERVICALGIA 09/18/2019 ARUNA LANGE RAJAN Ot N17.9 ACUTE KIDNEY FAILURE, UNSPECIFIED 09/18/2019 ARUNA LANGE RAJAN Ot N18.9 CHRONIC KIDNEY DISEASE, UNSPECIFIED 09/18/2019 ARUNA LANGE RAJAN Ot Z79.82 NURSING HOME (CURRENT) USE OF ASPIRIN 09/18/2019 ARUNA [...] APRN Ot I25.10 ATHSCL HEART DISEASE OF [place] CORONARY 10/09/2019 NEERAJ VILLA APRN Ot I25 .2 OLD MYOCARDIAL INFARCTION 10/09/2019 NEERAJ VILLA APRN Ot J44 .9 CHRONIC OBSTRUCTIVE PULMONARY DISEASE, U 10/09/2019 NEERAJ VILLA APRN Ot K21 .9 GASTRO-ESOPHAGEAL REFLUX DISEASE WITHOUT 10/09/2019 NEERAJ VILLA APRN Ot R56 .9 UNSPECIFIED CONVULSIONS 10/09/2019 NEERAJ VILLA APRN Ot Z77.22 CNTCT W AND EXPSR TO ENVIRON TOBACCO SMO 10/09/2019 NEERAJ VILLA APRN Ot Z79.82 NURSING HOME (CURRENT) USE OF ASPIRIN 10/09/2019 NEERAJ [...] APRN Ot I25.10 ATHSCL HEART DISEASE OF [place] CORONARY 10/12/2019 NEERAJ VILLA APRN Ot I25 .2 OLD MYOCARDIAL INFARCTION 10/12/2019 NEERAJ VILLA APRN, Ot J44 .9 CHRONIC OBSTRUCTIVE PULMONARY DISEASE, U 10/12/2019 NEERAJ VILLA APRN Ot K21 .9 GASTRO-ESOPHAGEAL REFLUX DISEASE WITHOUT 10/12/2019 NEERAJ VILLA APRN Ot R56 .9 UNSPECIFIED CONVULSIONS 10/12/2019 NEERAJ VILLA APRN Ot Z77.22 CNTCT W AND EXPSR TO ENVIRON TOBACCO SMO 10/12/2019 NEERAJ VILLA APRN Ot Z79.82 NURSING HOME (CURRENT) USE OF ASPIRIN 10/12/2019 NEERAJ [...] OF TRAUMATIC BRAIN INJU 10/12/2019 NEERAJ VILLA APRN, Ot Z87.891 PERSONAL HISTORY OF NICOTINE DEPENDENCE 10/12/2019 NEERAJ VILLA APRN Ot Z88 .8 ALLERGY STATUS TO OTH DRUG/MEDS/BIOL SUB 10/12/2019 NEERAJ VILLA APRN Ot Z90.710 ACQUIRED ABSENCE OF BOTH CERVIX AND UTER 10/12/2019 NEERAJ VILLA APRN Ot Z90.89 ACQUIRED ABSENCE OF OTHER ORGANS 10/27/2019 Paolo PERKINS MD Ot 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 10 ATHSCL HEART DISEASE OF [place] CORONARY 10/28/2019 MICHAEL BURRELL MD Ot I25. [...] 10/28/2019 MICHAEL BURRELL MD, Ot Z79. 82 NURSING HOME (CURRENT) USE OF ASPIRIN 10/28/2019 MICHAEL BURRELL MD, Ot Z82. 49 FAMILY HX OF ISCHEM HEART DIS AND OTH DI 10/28/2019 MICHAEL BURRELL MD, Ot Z85. 41 PERSONAL HISTORY OF MALIGNANT NEOPLASM O 10/28/2019 MICHAEL BURRELL MD Ot Z86. 73 PRSNL HX OF TIA (TIA), AND CEREB INFRC W 10/28/2019 MICHAEL BURRELL MD, Ot Z87.440 PERSONAL HISTORY OF URINARY (TRACT) INFE 10/28/2019 MICHAEL BURRELL MD, Ot Z87.442 PERSONAL HISTORY OF URINARY CALCULI 10/28/2019 MICHAEL BURRELL MD Ot Z88. 8 ALLERGY STATUS TO OT [...] Ot I25. 10 ATHSCL HEART DISEASE OF [place] CORONARY 11/01/2019 MICHAEL BURRELL MD Ot I25. 2 OLD MYOCARDIAL INFARCTION 11/01/2019 MICHAEL BURRELL MD Ot J44. 9 CHRONIC OBSTRUCTIVE PULMONARY DISEASE, U 11/01/2019 MICHAEL BURRELL MD Ot K21. 9 GASTRO-ESOPHAGEAL REFLUX DISEASE WITHOUT 11/01/2019 MICHAEL BURRELL MD, Ot R53. 1 WEAKNESS 11/01/2019 MICHAEL BURRELL MD, Ot Z77. 22 CNTCT W AND EXPSR TO ENVIRON TOBACCO SMO 11/01/2019 MICHAEL BURRELL MD, Ot Z79. 82 ENGAGEMENT LIAISON (CURRENT) USE OF ASPIRIN 11/01/2019 MICHAEL BURRELL [...] MD, Ot Z88. 8 ALLERGY STATUS TO [facility] DRUG/MEDS/BIOL SUB 11/01/2019 MICHAEL BURRELL MD, Ot [...] 2 DIABETES MELLITUS WITH HYPERGLYCE 12/01/2019 JEANIE MEIRNO MD Ot E86.0 DEHYDRATION 12/01/2019 JEANIE MERINO [...] MD, Ot I25.10 ATHSCL HEART DISEASE OF [place] CORONARY 12/01/2019 JEANIE MERINO MD, Ot I25.2 [...] MD, Ot I25.10 ATHSCL HEART DISEASE OF [place] CORONARY 12/01/2019 JEANIE MERINO MD, Ot I25.2 [...] MD Ot I25.10 ATHSCL HEART DISEASE OF [place] CORONARY 12/01/2019 JEANIE MERINO MD Ot I25.2 [...] MD, Ot I25.10 ATHSCL HEART DISEASE OF [place] CORONARY 12/01/2019 JEANIE MERINO MD, Ot I25.2 [...] Ot F15.10 OTHER STIMULANT ABUSE, UNCOMPLICATED 12/02/2019 SANDNESS MD, JEANIE M Ot F31.9 BIPOLAR DISORDER, UNSPECIFIED 12/02/2019 JEANIE MERINO MD Ot F41.9 ANXIETY DISORDER, UNSPECIFIED 12/02/2019 JEANIE MERINO MD Ot G40.909 EPILEPSY, UNSP, NOT INTRACTABLE, WITHOUT 12/02/2019 JEANIE MERINO MD Ot I12.9 HYPERTENSIVE CHRONIC KIDNEY DISEASE W ST 12/02/2019 JEANIE MERINO MD Ot I25.10 ATHSCL HEART DISEASE OF [place] CORONARY 12/02/2019 JEANIE MERINO MD Ot I25.2 [...] MD Ot I25.10 ATHSCL HEART DISEASE OF [place] CORONARY 12/02/2019 JEANIE MERINO MD Ot I25.2 [...] INFECTION, SITE NOT SPECIF 12/02/2019 JEANIE MERINO MD, Ot R41.82 ALTERED MENTAL STATUS, UNSPECIFIED 12/02/2019 [...] MD Ot I25.10 ATHSCL HEART DISEASE OF [place] CORONARY 12/03/2019 JEANIE MERINO MD Ot I25.2 OLD MYOCARDIAL INFARCTION 12/03/2019 JEANIE MERINO MD Ot I42.9 CARDIOMYOPATHY, UNSPECIFIED 12/03/2019 JEANIE MERINO MD Ot J44.9 CHRONIC OBSTRUCTIVE [...] MD, Ot I25.10 ATHSCL HEART DISEASE OF [place] CORONARY 12/03/2019 JEANIE MERINO MD, Ot I25.2 [...] W DIABETIC PERIPHERAL AN 12/04/2019 JEANIE MERINO MD, Ot E11.65 TYPE 2 DIABETES MELLITUS WITH HYPERGLYCE 12/04/2019 JEANIE MERINO MD Ot E86.0 DEHYDRATION 12/04/2019 JEANIE MERINO MD, Ot F15.10 OTHER STIMULANT ABUSE, UNCOMPLICATED 12/04/2019 JEANIE MERINO MD Ot F31.9 BIPOLAR DISORDER, UNSPECIFIED 12/04/2019 JEANIE MERINO MD Ot F41.9 ANXIETY DISORDER, UNSPECIFIED 12/04/2019 JEANIE MERINO MD, Ot G40.909 EPILEPSY, UNSP, NOT INTRACTABLE, WITHOUT 12/04/2019 JEANIE MERINO MD, Ot I12.9 HYPERTENSIVE CHRONIC KIDNEY DISEASE W ST 12/04/2019 JEANIE MERINO MD, Ot I25.10 ATHSCL HEART DISEASE OF [place] CORONARY 12/04/2019 JEANIE MERINO MD, Ot I25.2 OLD MYOCARDIAL INFARCTION 12/04/2019 JEANIE MERINO MD Ot I42.9 CARDIOMYOPATHY, UNSPECIFIED 12/04/2019 JEANIE MERINO MD, Ot J44.9 CHRONIC OBSTRUCTIVE PULMONARY DISEASE, U 12/04/2019 JEANIE MERINO MD, Ot K21.9 GASTRO-ESOPHAGEAL REFLUX DISEASE WITHOUT 12/04/2019 JEANIE MERINO MD Ot M19.91 PRIMARY OSTEOARTHRITIS, UNSPECIFIED SITE 12/04/2019 JEANIE MERINO MD, Ot M54.9 DORSALGIA, UNSPECIFIED 12/04/2019 JEANIE MERINO MD Ot N17.9 ACUTE KIDNEY FAILURE, UNSPECIFIED 12/04/2019 JEANIE MERINO MD, Ot N18.9 CHRONIC KIDNEY DISEASE, UNSPECIFIED 12/04/2019 JEANIE MERINO MD Ot N26.1 ATROPHY OF KIDNEY (TERMINAL) 12/04/2019 [...] BRAIN INJU 12/04/2019 JEANIE MERINO MD, Ot A40.8 OTHER STREPTOCOCCAL SEPSIS 12/04/2019 JEANIE [...] MD, Ot I25.10 ATHSCL HEART DISEASE OF [place] CORONARY 12/04/2019 JEANIE MERINO MD, Ot I25.2 OLD MYOCARDIAL INFARCTION 12/04/2019 JEANIE MERINO MD Ot I42.9 CARDIOMYOPATHY, UNSPECIFIED 12/04/2019 JEANIE MERINO MD, Ot J44.9 CHRONIC OBSTRUCTIVE PULMONARY DISEASE, U 12/04/2019 JEANIE MERINO MD Ot J81.1 CHRONIC PULMONARY EDEMA 12/04/2019 JEANIE [...] OF OTHER INFECTIOUS AND 12/04/2019 JEANIE MERINO MD Ot Z86.73 PRSNL HX OF TIA (TIA), AND CEREB INFRC W 12/04/2019 JEANIE MERINO MD, Ot Z87.19 PERSONAL HISTORY OF OTHER DISEASES OF TH 12/04/2019 JEANIE MERINO MD Ot Z87.442 PERSONAL HISTORY OF URINARY CALCULI 12/04/2019 JEANIE MERINO MD, Ot Z87.820 PERSONAL HISTORY OF TRAUMATIC BRAIN INJU 12/04/2019 JEANIE MERINO MD, Ot Z87.891 PERSONAL HISTORY OF NICOTINE DEPENDENCE 01/08/2020 CHRISSY GONZALES, SANTHOSH Castellano Ot E11.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 01/08/2020 CHRISSY GONZALES, SANTHOSH Castellano Ot F31.9 BIPOLAR DISORDER, UNSPECIFIED 01/08/2020 SANTHOSH LOWE MD Ot F41.9 ANXIETY DISORDER, UNSPECIFIED 01/08/2020 SANTHOSH LOWE MD Ot G40.909 EPILEPSY, UNSP, NOT INTRACTABLE, WITHOUT 01/08/2020 SANTHOSH LOWE MD Ot I10 ESSENTIAL (PRIMARY) HYPERTENSION 01/08/2020 SANTHOSH LOWE MD Ot I25.10 ATHSCL HEART DISEASE OF [place] CORONARY 01/08/2020 SANTHOSH LOWE MD Ot I25.2 OLD MYOCARDIAL INFARCTION 01/08/2020 CHIRSSY GONZALES, SANTHOSH Castellano Ot I42.9 CARDIOMYOPATHY, UNSPECIFIED 01/08/2020 SANTHOSH LOWE MD Ot I95.9 HYPOTENSION, UNSPECIFIED 01/08/2020 SANTHOSH LOWE MD Ot J44.9 CHRONIC OBSTRUCTIVE PULMONARY DISEASE, U 01/08/2020 SANTHOSH LOWE MD Ot K21.9 GASTRO-ESOPHAGEAL REFLUX DISEASE WITHOUT 01/08/2020 SANTHOSH LOWE MD Ot L03.116 CELLULITIS OF LEFT LOWER LIMB 01/08/2020 SANTHOSH LOWE MD Ot M19.91 PRIMARY OSTEOARTHRITIS, UNSPECIFIED SITE 01/08/2020 SANTHOSH LOWE MD Ot M54.9 DORSALGIA, UNSPECIFIED 01/08/2020 SANTHOSH LOWE MD Ot N17.9 ACUTE KIDNEY FAILURE, UNSPECIFIED 01/08/2020 SANTHOSH LOWE MD Ot R41.82 ALTERED MENTAL STATUS, UNSPECIFIED 01/08/2020 SANTHOSH LOWE MD Ot Z85.41 PERSONAL HISTORY OF MALIGNANT NEOPLASM O 01/08/2020 SANTHOSH LOWE MD Ot Z87.19 PERSONAL HISTORY OF OTHER DISEASES OF TH 01/08/2020 SANTHOSH LOWE MD Ot Z87.820 PERSONAL HISTORY OF TRAUMATIC BRAIN INJU 01/11/2020 SANTHOSH LOWE MD Ot E11.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 01/11/2020 SANTHOSH LOWE MD Ot F31.9 BIPOLAR DISORDER, UNSPECIFIED 01/11/2020 SANTHOSH LOWE MD Ot F41.9 ANXIETY DISORDER, UNSPECIFIED 01/11/2020 SANTHOSH LOWE MD Ot G40.909 EPILEPSY, UNSP, NOT INTRACTABLE, WITHOUT 01/11/2020 SANTHOSH LOWE MD Ot I10 ESSENTIAL (PRIMARY) HYPERTENSION 01/11/2020 SANTHOSH LOWE MD Ot I25.10 ATHSCL HEART DISEASE OF [place] CORONARY 01/11/2020 SANTHOSH LOWE MD Ot I25.2 OLD MYOCARDIAL INFARCTION 01/11/2020 SANTHOSH LOWE MD Ot I42.9 CARDIOMYOPATHY, UNSPECIFIED 01/11/2020 SANTHOSH LOWE MD Ot I95.9 HYPOTENSION, UNSPECIFIED 01/11/2020 SANTHOSH LOWE MD, Ot J44.9 CHRONIC OBSTRUCTIVE PULMONARY DISEASE, [...] PERSONAL HISTORY OF TRAUMATIC BRAIN INJU 01/12/2020 INDRA GONZALES, MICHAEL Valdovinos Ot D64. 9 ANEMIA, UNSPECIFIED 01/12/2020 MICHAEL BURRELL MD Ot E11. 9 TYPE 2 DIABETES MELLITUS WITHOUT COMPLIC 01/12/2020 MICHAEL BURRELL MD Ot F31. 9 BIPOLAR DISORDER, UNSPECIFIED 01/12/2020 MICHAEL BURRELL MD Ot F41. 9 ANXIETY DISORDER, UNSPECIFIED 01/12/2020 MICHAEL BURRELL MD Ot G40.909 EPILEPSY, UNSP, NOT INTRACTABLE, WITHOUT 01/12/2020 MICHAEL BURRELL MD, Ot I10 ESSENTIAL (PRIMARY) HYPERTENSION 01/12/2020 MICHAEL BURRELL MD, Ot I25. 10 ATHSCL HEART DISEASE OF [place] CORONARY 01/12/2020 MICHAEL BURRELL MD, Ot I25. 2 OLD MYOCARDIAL INFARCTION 01/12/2020 MICHAEL BURRELL MD, Ot J44. 9 CHRONIC OBSTRUCTIVE PULMONARY DISEASE, U 01/12/2020 MICHAEL BURRELL MD, Ot K21. 9 GASTRO-ESOPHAGEAL REFLUX DISEASE WITHOUT 01/12/2020 MICHAEL BURRELL MD, Ot R53. 1 WEAKNESS 01/12/2020 MICHAEL BURRELL MD, Ot Z77. 22 CNTCT W AND EXPSR TO ENVIRON TOBACCO SMO 01/12/2020 MICHAEL BURRELL MD, Ot Z79. 82 ENGAGEMENT LIAISON (CURRENT) USE OF ASPIRIN 01/12/2020 MICHAEL BURRELL [...] HISTORY OF URINARY CALCULI 01/12/2020 MICHAEL BURRELL MD, Ot Z88. 8 ALLERGY STATUS TO [facility] DRUG/MEDS/BIOL SUB 01/12/2020 MICHAEL BURRELL MD, Ot Z90.710 ACQUIRED ABSENCE OF BOTH CERVIX AND UTER 01/12/2020 MICHAEL BURRELL MD Ot Z90. 89 ACQUIRED ABSENCE OF OTHER ORGANS 02/10/2020 MATTHEW DAVID MD Ot F15.10 OTHER STIMULANT ABUSE, UNCOMPLICATED 02/10/2020 MATTHEW DAVID MD Ot F17.210 NICOTINE DEPENDENCE, CIGARETTES, UNCOMPL 02/10/2020 MATTHEW DAVID MD, Ot G40.909 EPILEPSY, UNSP, NOT INTRACTABLE, WITHOUT 02/10/2020 MATTHEW DAVID MD Ot I10 ESSENTIAL (PRIMARY) HYPERTENSION 02/10/2020 MATTHEW DAVID MD, Ot I25.10 ATHSCL HEART DISEASE OF [place] CORONARY 02/10/2020 MATTHEW DAVID MD Ot I25 .2 OLD MYOCARDIAL INFARCTION 02/10/2020 MATTHEW DAVID MD Ot I38 ENDOCARDITIS, VALVE UNSPECIFIED 02/10/2020 MATTHEW DAVID MD Ot I42 .9 CARDIOMYOPATHY, UNSPECIFIED 02/10/2020 MATTHEW DAVID MD Ot I73 .9 PERIPHERAL VASCULAR DISEASE, UNSPECIFIED 02/10/2020 MATTHEW DAVID MD Ot J44 .9 CHRONIC OBSTRUCTIVE PULMONARY DISEASE, U 02/10/2020 MATTHEW DAVID MD Ot K75 .9 INFLAMMATORY LIVER DISEASE, UNSPECIFIED 02/10/2020 MATTHEW DAVID MD Ot N39 .0 URINARY TRACT INFECTION, SITE NOT SPECIF 02/10/2020 MATTHEW DAVID MD Ot R40 .0 SOMNOLENCE 02/10/2020 MATTHEW DAVID MD Ot Z66 DO NOT RESUSCITATE 02/10/2020 MATTHEW DAVID MD Ot Z86.73 PRSNL HX OF TIA (TIA), AND CEREB INFRC W 02/10/2020 MATTHEW DAVID MD Ot Z87.820 PERSONAL HISTORY OF TRAUMATIC BRAIN INJU 02/10/2020 MATTHEW DAVID MD, Ot Z91.14 PATIENT'S OTHER NONCOMPLIANCE WITH MEDIC 02/10/2020 MATTHEW DAVID MD Ot E86 .0 DEHYDRATION 02/10/2020 MATTHEW DAVID MD Ot F15.10 OTHER STIMULANT ABUSE, UNCOMPLICATED 02/10/2020 MATTHEW DAVID MD Ot F17.210 NICOTINE DEPENDENCE, CIGARETTES, UNCOMPL 02/10/2020 MATTHEW DAVID MD Ot F31 .9 BIPOLAR DISORDER, UNSPECIFIED 02/10/2020 MATTHEW DAVID MD Ot F41 .9 ANXIETY DISORDER, UNSPECIFIED 02/10/2020 MATTHEW DAVID MD Ot G40.909 EPILEPSY, UNSP, NOT INTRACTABLE, WITHOUT 02/10/2020 MATTHEW DAVID MD Ot I10 ESSENTIAL (PRIMARY) HYPERTENSION 02/10/2020 MATTHEW DAVID MD Ot I25.10 ATHSCL HEART DISEASE OF [place] CORONARY 02/10/2020 MATTHEW DAVID MD, Ot I25 .2 OLD MYOCARDIAL INFARCTION 02/10/2020 MATTHEW DAVID MD, Ot I38 ENDOCARDITIS, VALVE UNSPECIFIED 02/10/2020 MATTHEW DAVID MD, Ot I42 .9 CARDIOMYOPATHY, UNSPECIFIED 02/10/2020 MATTHEW DAVID MD, Ot I73 .9 PERIPHERAL VASCULAR DISEASE, UNSPECIFIED 02/10/2020 MATTHEW DAVID MD, Ot J44 .9 CHRONIC OBSTRUCTIVE PULMONARY DISEASE, U 02/10/2020 MATTHEW DAVID MD, Ot K75 .9 INFLAMMATORY LIVER DISEASE, UNSPECIFIED 02/10/2020 MATTHEW DAVID MD, Ot N17 .9 ACUTE KIDNEY FAILURE, UNSPECIFIED 02/10/2020 MATTHEW DAVID MD, Ot N39 .0 URINARY TRACT INFECTION, SITE NOT SPECIF 02/10/2020 MATTHEW DAVID MD, Ot R40 .0 SOMNOLENCE 02/10/2020 MATTHEW DAVID MD, Ot Z66 DO NOT RESUSCITATE 02/10/2020 MATTHEW DAVID MD, Ot Z86.73 PRSNL HX OF TIA (TIA), AND CEREB INFRC W 02/10/2020 MATTHEW DAVID MD, Ot Z87.820 PERSONAL HISTORY OF TRAUMATIC BRAIN INJU 02/10/2020 MATTHEW DAVID MD, Ot Z90.49 ACQUIRED ABSENCE OF OTHER SPECIFIED PART 02/10/2020 MATTHEW DAVID MD, Ot Z90.710 ACQUIRED ABSENCE OF BOTH CERVIX AND UTER 02/10/2020 MATTHEW DAVID MD, Ot Z90.722 ACQUIRED ABSENCE OF OVARIES, BILATERAL 02/10/2020 MATTHEW DAVID MD, Ot Z90.89 ACQUIRED ABSENCE OF OTHER ORGANS 02/10/2020 MATTHEW DAVID MD Ot Z91.14 PATIENT'S OTHER NONCOMPLIANCE WITH MEDIC 02/13/2020 NEERAJ VILLA APRN Ot D64 .9 ANEMIA, UNSPECIFIED 02/13/2020 NEERAJ VILLA APRN Ot E11 .9 TYPE 2 DIABETES MELLITUS WITHOUT COMPLIC 02/13/2020 NEERAJ VILLA APRN Ot F31 .9 BIPOLAR DISORDER, UNSPECIFIED 02/13/2020 NEERAJ VILLA APRN Ot F41 .9 ANXIETY DISORDER, UNSPECIFIED 02/13/2020 NEERAJ VILLA APRN Ot G40.909 EPILEPSY, UNSP, NOT INTRACTABLE, WITHOUT 02/13/2020 NEERAJ VILLA APRN Ot I10 ESSENTIAL (PRIMARY) HYPERTENSION 02/13/2020 NEERAJ VILLA APRN, Ot I25.10 ATHSCL HEART DISEASE OF [place] CORONARY 02/13/2020 NEERAJ VILLA APRN, Ot I25 .2 OLD MYOCARDIAL INFARCTION 02/13/2020 NEERAJ VILLA APRN, Ot J44 .9 CHRONIC OBSTRUCTIVE PULMONARY DISEASE, U 02/13/2020 NEERAJ VILLA APRN, Ot K21 .9 GASTRO-ESOPHAGEAL REFLUX DISEASE WITHOUT 02/13/2020 NEERAJ VILLA APRN Ot R56 .9 UNSPECIFIED CONVULSIONS 02/13/2020 NEERAJ VILLA APRN, Ot Z77.22 CNTCT W AND EXPSR TO ENVIRON TOBACCO SMO 02/13/2020 NEERAJ VILLA APRN Ot Z79.82 NURSING HOME (CURRENT) USE OF ASPIRIN 02/13/2020 NEERAJ VILLA APRN, Ot Z82.49 FAMILY HX OF ISCHEM HEART DIS AND OTH DI 02/13/2020 NEERAJ VILLA APRN Ot Z85.41 PERSONAL HISTORY OF MALIGNANT NEOPLASM O 02/13/2020 NEERAJ VILLA APRN Ot Z86.73 PRSNL HX OF TIA (TIA), AND CEREB INFRC W 02/13/2020 NEERAJ VILLA APRN Ot Z87.440 PERSONAL HISTORY OF URINARY (TRACT) INFE 02/13/2020 NEERAJ VILLA APRN, Ot Z87.442 PERSONAL HISTORY OF URINARY CALCULI 02/13/2020 NEERAJ VILLA APRN, Ot Z87.820 PERSONAL HISTORY OF TRAUMATIC BRAIN INJU 02/13/2020 NEERAJ VILLA APRN, Ot Z87.891 PERSONAL HISTORY OF NICOTINE DEPENDENCE 02/13/2020 NEERAJ VILLA APRN Ot Z88 .8 ALLERGY STATUS TO OT DRUG/MEDS/BIOL SUB 02/13/2020 NEERAJ VILLA APRN Ot Z90.710 ACQUIRED ABSENCE OF BOTH CERVIX AND UTER 02/13/2020 NEERAJ VILLA APRN Ot Z90.89 ACQUIRED ABSENCE OF OTHER ORGANS Procedures Code Description Performed By Per grey On 38.93 VENO US CATHETERIZATION NEC 02/05/2010 53.69 OTH OPEN REP OTH HERNIA OF ANTER ABD W 02/05/2010 Urology [facility] 09/16/2012 General S Aniya, [place] 10/28/2012 66556 ROUT INE VENIPUNCTURE 12/09/2012 29015 CMP 12/09/2012 50606 PHEN OBARBITAL 12/09/2012 90969 TSH 12/09/2012 81622 CBC 12/09/2012 PODIATRY W VIRGILIO HARRISONIN 03/02/2013 37.22 LEFT HEART CARDIAC CATH 05/10/2013 88.53 LT H EART ANGIOCARDIOGRAM 05/10/2013 88.56 MISAEL DENEEN ARTERIOGR-2 CATH 05/10/2013 90526 ECHO 2D 05/21/2013 86.04 OTHE R SKIN SUBQ I D 06/20/2013 Physical [facility], Mtc 06/29/[address] A BDOMEN & PELVIS W/ & W/O CONTRAST 12/10/2013 45249 OXIMETRY 12/10/2013 16146 ROUT INE VENIPUNCTURE 08/05/2014 77646 CBC 08/05/2014 [id number] GF R CALC (RESULT ONLY) 08/05/2014 77606 CMP 08/05/2014 41539 OXIMETRY 11/28/2014 J1885 BENJAMIN DOL PER 15 MG, INJ KETOROLAC TROMETHAMINE 11/28/2014 62208 EAR LAVAGE 02/02/2015 [id number] IN SERTION OF INFUSION DEV INTO SUP VENA 05/15/2018 [id number] IN SERTION OF ENDOTRACHEAL AIRWAY INTO TR 07/02/2019 [id number] RE SPIRATORY VENTILATION, LESS THAN 24 CO 07/02/2019 [id number] IN SERTION OF ENDOTRACHEAL AIRWAY INTO TR 08/26/2019 [id number] RE SPIRATORY VENTILATION, LESS THAN 24 CO 08/26/2019 [id number] RE SPIRATORY VENTILATION, 24- 96 CONSECUTI 08/26/2019 [id number] IN SERTION OF INFUSION DEV INTO SUP VENA 09/15/2019 [id number] IN SERTION OF TIVAD INTO CHEST SUBCU/FASC 09/15/2019 [id number] IN SERTION OF ENDOTRACHEAL AIRWAY INTO TR 09/17/2019 [id number] RE SPIRATORY VENTILATION, LESS THAN 24 CO [...] culture - 08/05/16 21:25 Bacterial urine culture [id number] NRG COLONY COUNT >100,000/ML NRG FTX;REPORTABLE SENSITIVITY [...] NRG Blood erythrocyte morphology finding identification NORMAL [facility] Comprehensive metabolic panel - 05/14/18 [...] 7-25 CREATININE 1.57 mg/dL 0.50-1.05 eGFR NON-AFR. [place] 36 mL/min/1.73m2 > OR = 60 eGFR [...] culture - 07/02/19 11:04 Bacterial urine culture [id number] NRG COLONY COUNT >100,000/ML NRG FTX;REPORTABLE SUSCEPTIBILITIES [...] OF GROWTH FEW NRG Bacterial sputum culture [id number] NRG Dirithromycin susceptibility test by dis k [...] < mg/dL <10 PHENOBARBITAL - 08/12/19 05:50 [id number] 11.7 % 15.0-40.0 Urine drug screening test [...] culture - 08/15/19 01:10 Bacterial urine culture [id number] NRG COLONY COUNT 80,000 CFU/ML NRG FTX;REPORTABLE [...] 0.0-0.1 Whole blood basic metabolic panel - 11/02/28 04:55 Serum or plasma sodium measurement (moles/volume) [...] 188.3 pg/mL <100.0 PHENOBARBITAL - 08/26/19 03:55 [id number] 8.0 % 15.0-40.0 Influenza virus A and B antigen detectio n - 08/26/19 03:59 FLU RESULT NEGATIVE FOR INFLUENZA A AND B ANTIGENS BY IA [facility] Blood carboxyhemoglobin/total hemoglobin - 08/26/19 04:08 Blood [...] OF GROWTH Isolated NRG Bacterial blood culture [id number] NRG Methicillin resistant Staphylococcus aur eus (MRSA) [...] urine sediment by light johana roscopy 0-2 NR Urine drug screening test - 10/27/19 22: [...] A AND B ANTIGENS BY IA NR Bacterial blood culture - 10/27/19 22:42 QUANTITY OF GROWTH . NR Bacterial blood culture SEE COMMEN NR Complete blood count (CBC) with automate [...] INFLUENZA A AND B ANTIGENS BY IA [facility] Comprehensive metabolic panel - 11/28/19 10:37 Serum [...] calculation of estimated glomerular filtration rate 19 NR Serum or plasma glucose measurement (mass/volume) 126 [...] 11/28/19 10:37 FREE TEXT EXTERNAL (STREPTOCOCCUS GORDONII) NR QUANTITY OF GROWTH Isolated [facility] Bacterial blood culture [id number] [facility] FREE TEXT ENTRY 2 SUSCEPTIBILITY REPORTED 12/02/19 11:35 NR FREE TEXT ENTRY 3 BY RML [facility] Bacterial blood culture - 11/28/19 11:05 FREE TEXT EXTERNAL PROBABLE STREPTOCOCCUS GORDONII NR QUANTITY OF GROWTH Isolated [facility] Bacterial blood culture [id number] [facility] FREE TEXT ENTRY 2 REFER TO PREVIOUS [...] culture - 11/28/19 11:20 Bacterial urine culture [id number] NRG COLONY COUNT >100,000/ML NRG FTX;REPORTABLE SUSCEPTIBILITY REPORTED 11/30/19 12: 05 NRG FREE TEXT ENTRY 2 PRELIM RAPID ID TEST AT [facility] 11/29 07:50 NRG FREE TEXT ENTRY 3 [...] culture - 01/08/20 01:30 Bacterial blood culture [facility] Bacterial blood culture - 01/08/20 02:17 Bacterial blood culture [facility] Bacterial blood culture - 02/05/20 21:00 QUANTITY OF GROWTH . [facility] Bacterial blood culture SEE COMMEN [facility] Blood lactic acid measurement (moles/vol ume) - [...] NEGATIVE N EGATIVE Bacterial urine culture - 02/05/20 21:08 Bacterial urine culture [id number] NRG COLONY COUNT >100,000/ML NRG SUSCEPTIBILITY SUSCEPTIBILITY REPORTED 02/06 09:55 NRG Dirithromycin susceptibility test by dis k diffusion - 02/05/20 21:08 Gentamicin susceptibility test by minimum inhibitory c [...] and clavulanate potassium susc JOHANA = NRG Arterial blood gas measurement - 0 22:00 [...] G Measurement of body temperature 36 NRG Complete blood count (CBC) with automate d white blood cell (WBC) differential - 02/06/20 06:00 Blood leukocytes automated count (number/volume) 4.5 10*3/uL 4.3-11.0 Blood erythrocytes automated count (number/volume) 3.90 10*6/uL 4.35-5.85 Venous blood hemoglobin measurement (mass/volume) 10.8 g/dL 11.5-16.0 Blood hematocrit (volume fraction) 34 % 35-52 Automated erythrocyte mean corpuscular volume 87 [ foz_us] 80-99 Automated erythrocyte mean corpuscular h emoglobin (mass per erythrocyte) 28 pg 25-34 Automated erythrocyte mean corpuscular h emoglobin concentration measurement (mass/volume) 32 g/dL 32-36 Automated erythrocyte distribution width ratio 16. 6 % 10.0- 14.5 Automated blood platelet count (count/volume) 339 10*3/uL 130-400 Automated blood platelet mean volume measurement 10.1 [foz_us] 7.4-10.4 Automated blood neutrophils/100 leukocytes 54 [...] 0.0 10*3/uL 0.0-0.1 Comprehensive metabolic panel - 02/06/20 06:00 Serum or plasma sodium measurement (moles/volume) 138 mmol/L 135-145 Serum or plasma potassium measurement (moles/volume) 4.5 mmol/L 3.6-5.0 Serum or plasma chloride measurement (moles/volume) 111 mmol/L 98-107 Carbon dioxide 18 mmol/L 21-32 Serum or plasma anion gap determination (moles/volume) 9 mmol/L 5-14 Serum or plasma urea nitrogen measurement (mass/volume ) 41 mg/dL 7-18 Serum or plasma creatinine measurement (mass/volume) 1.52 mg/dL 0.60-1.30 Serum or plasma urea nitrogen/creatinine [...] g/dL 3.2-4.5 CALCIUM CORRECTED 8.7 mg/dL 8.5-10.1 Automated blood complete blood count (he mogram) panel - 02/08/20 04:05 Blood leukocytes automated count (number/volume) 4.0 10*3/uL 4.3-11.0 Blood erythrocytes automated count (number/volume) 3.54 10*6/uL 4.35-5.85 Venous blood hemoglobin measurement (mass/volume) 10.0 g/dL 11.5-16.0 Blood hematocrit (volume fraction) 31 % 35-52 Automated erythrocyte mean corpuscular volume 87 [ foz_us] 80-99 Automated erythrocyte mean corpuscular h emoglobin (mass per erythrocyte) 28 pg 25-34 Automated erythrocyte mean corpuscular h emoglobin concentration measurement (mass/volume) 33 g/dL 32-36 Automated erythrocyte distribution width ratio 16. 1 % 10.0- 14.5 Automated blood platelet count (count/volume) 321 10*3/uL 130-400 Automated blood platelet mean volume measurement 10.0 [foz_us] 7.4-10.4 Whole blood basic metabolic panel - 01/12 06/01 04:05 Serum or plasma sodium measurement (moles/volume) 138 mmol/L 135-145 Serum or plasma potassium measurement (moles/volume) 4.3 mmol/L 3.6-5.0 Serum or plasma chloride measurement (moles/volume) 108 mmol/L 98-107 Carbon dioxide 21 mmol/L 21-32 Serum or plasma anion gap determination (moles/volume) 9 mmol/L 5-14 Serum or plasma urea nitrogen measurement (mass/volume ) 22 mg/dL 7-18 Serum or plasma creatinine measurement (mass/volume) 1.29 mg/dL 0.60-1.30 Serum or plasma urea nitrogen/creatinine mass ratio 17 NRG Serum or plasma creatinine measurement w ith calculation of estimated glomerular filtration rate 42 NRG Serum or plasma glucose measurement (mass/volume) 124 mg/dL 70-105 Serum or plasma calcium measurement (mass/volume) 8.1 mg/dL 8.5-10.1 Complete blood count (CBC) with automate d white blood cell (WBC) differential - 02/08/20 20:40 Blood leukocytes automated count (number/volume) 4.5 10*3/uL 4.3-11.0 Blood erythrocytes automated count (number/volume) 3.70 10*6/uL 4.35-5.85 Venous blood hemoglobin measurement (mass/volume) 10.3 g/dL 11.5-16.0 Blood hematocrit (volume fraction) 32 % 35-52 Automated erythrocyte mean corpuscular volume 88 [ foz_us] 80-99 Automated erythrocyte mean corpuscular h emoglobin (mass per erythrocyte) 28 pg 25-34 Automated erythrocyte mean corpuscular h emoglobin concentration measurement (mass/volume) 32 g/dL 32-36 Automated erythrocyte distribution width ratio 16. 1 % 10.0- 14.5 Automated blood platelet count (count/volume) 322 10*3/uL 130-400 Automated blood platelet mean volume measurement 10.0 [foz_us] 7.4-10.4 Automated blood neutrophils/100 leukocytes 56 % 42-75 Automated blood lymphocytes/100 leukocytes 33 % 12-44 Blood monocytes/100 leukocytes 6 % 0-12 Automated blood eosinophils/100 leukocytes 5 % 0-10 Automated blood basophils/100 leukocytes 1 % 0-10 Blood neutrophils automated count (number/volume) 2.5 10*3 1.8-7.8 Blood lymphocytes automated count (number/volume) 1.5 10*3 1.0-4.0 Blood monocytes automated count (number/volume) 0. 3 10*3 0.0-1.0 Automated eosinophil count 0.2 10*3/uL 0 .0-0.3 Automated blood basophil count (count/volume) 0.0 10*3/uL 0.0-0.1 Magnesium - 02/08/20 20:40 Magnesium 1.6 mg/dL 1.6-2.4 PHENOBARBITAL - 02/08/20 20:40 [id number] 24.5 % 15.0-40.0 Automated blood complete blood count (he mogram) panel - 02/09/20 05:10 Blood leukocytes automated count (number/volume) 4.8 10*3/uL 4.3-11.0 Blood erythrocytes automated count (number/volume) 3.81 10*6/uL 4.35-5.85 Venous blood hemoglobin measurement (mass/volume) 10.6 g/dL 11.5-16.0 Blood hematocrit (volume fraction) 33 % 35-52 Automated erythrocyte mean corpuscular volume 87 [ foz_us] 80-99 Automated erythrocyte mean corpuscular h emoglobin (mass per erythrocyte) 28 pg 25-34 Automated erythrocyte mean corpuscular h emoglobin concentration measurement (mass/volume) 32 g/dL 32-36 Automated erythrocyte distribution width ratio 16. 1 % 10.0- 14.5 Automated blood platelet count (count/volume) 319 10*3/uL 130-400 Automated blood platelet mean volume measurement 10.2 [foz_us] 7.4-10.4 Comprehensive metabolic panel - 02/09/20 05:10 Serum or plasma sodium measurement (moles/volume) 139 [...] plasma alkaline phosphatase lorenzo surement (enzymatic activity/volume) 80 U/L 40-136 Serum or plasma aspartate aminotransfera se measurement (enzymatic activity/volume) 12 U/L 5-34 Serum or plasma alanine aminotransferase measurement (enzymatic activity/volume) 13 U/L 0-55 Serum or plasma protein measurement (mass/volume) 6.5 g/dL 6.4-8.2 Serum or plasma albumin measurement (mass/volume) 3.2 g/dL 3.2-4.5 CALCIUM CORRECTED 9.0 mg/dL 8.5-10.1 Serum or plasma potassium measurement (m oles/volume) - 02/09/20 15:53 Serum or plasma potassium measurement (moles/volume) 5.4 mmol/L 3.6-5.0 Automated blood complete blood count (he mogram) panel - 02/10/20 04:45 Blood leukocytes automated count (number/volume) 4.8 10*3/uL 4.3-11.0 Blood erythrocytes automated count (number/volume) 3.68 10*6/uL 4.35-5.85 Venous blood hemoglobin measurement (mass/volume) 10.3 g/dL 11.5-16.0 Blood hematocrit (volume fraction) 32 % 35-52 Automated erythrocyte mean corpuscular volume 87 [ foz_us] 80-99 Automated erythrocyte mean corpuscular h emoglobin (mass per erythrocyte) 28 pg 25-34 Automated erythrocyte mean corpuscular h emoglobin concentration measurement (mass/volume) 32 g/dL 32-36 Automated erythrocyte distribution width ratio 16. 2 % 10.0- 14.5 Automated blood platelet count (count/volume) 342 10*3/uL 130-400 Automated blood platelet mean volume measurement 10.0 [foz_us] 7.4-10.4 Whole blood basic metabolic panel - 01/13 04:45 Serum or plasma sodium measurement (moles/volume) 138 mmol/L 135-145 Serum or plasma potassium measurement (moles/volume) 4.9 mmol/L 3.6-5.0 Serum or plasma chloride measurement (moles/volume) 107 mmol/L 98-107 Carbon dioxide 22 mmol/L 21-32 Serum or plasma anion gap determination (moles/volume) 9 mmol/L 5-14 Serum or plasma urea nitrogen measurement (mass/volume ) 20 mg/dL 7-18 Serum or plasma creatinine measurement (mass/volume) 1.32 mg/dL 0.60-1.30 Serum or plasma urea nitrogen/creatinine mass ratio 15 NRG Serum or plasma creatinine measurement w ith calculation of estimated glomerular filtration rate 41 NRG Serum or plasma glucose measurement (mass/volume) 101 mg/dL 70-105 Serum or plasma calcium measurement (mass/volume) 8.8 mg/dL 8.5-10.1 Capillary blood glucose measurement by g lucometer (mass/volume) - 02/10/20 08:37 Capillary blood glucose measurement by glucometer (mas s/volume) 91 mg/dL 70-110 Encounters ACCT No. Visit Date/Time Discharge Status Pt. Type Provider Facility Loc./Unit Complaint [id number] 09/13/2014 14:47:00 ACT Unknown [id number] 02/03/2015 04:27:10 ACT Document Registration [id number] 02/05/2020 21:48:00 17:52:00 DIS Inpatient JOANN GONZALES, MATTHEW Longoria [facility] ICU SEIZURE DISORDER,UNRESPONSIVE,METHAMPHETAMINE USE [id number] 01/08/2020 01:15:00 04:55:00 DIS Emergency CHRISSY GONZALES, SANTHOSH Castellano [facility] ER SEIZURE [id number] 11/28/2019 13:35:00 13:53:00 DIS Inpatient ANGELIQUE GONZALES, JEANIE Boone [facility] ICU ARF, UTI, ABD P AIN [id number] 10/27/2019 21:42:00 03:00:00 DIS Emergency MICHAEL BURRELL MD [facility] ER WEAKNESS [id number] 10/09/2019 14:09:00 17:15:00 DIS Outpatient NEERAJ VILLA APRN [facility] ER SEIZURE [id number] 09/14/2019 10:38:00 14:45:00 DIS Inpatient RAJAN VALDOVINOS DO, V [facility] ICU SEIZURE; [id number] 08/26/2019 07:23:00 13:46:00 DIS Inpatient MATTHEW DAVID MD [facility] 4TH ALTERED MENTAL STATUS;A CUTE ON CHRONIC RESP. FAIL- [id number] 08/12/2019 09:48:00 13:00:00 DIS Inpatient JIMENEZ GONZALES, KWAKU James [facility] 4TH SEIZURE,ACUTE RENAL MARTHA LURE, TROPONIN [id number] 07/07/2019 09:23:00 09/28/2 019 16:40:00 DIS Inpatient VALDOVINOS DO, RAJAN V [facility] 4TH CHEST PAIN;DEHYDRATION;DIARRHEA,ACUTE RENAL INSUF. [id number] 07/02/2019 14:23:00 15:35:00 DIS Inpatient VALDOVINOS DO, RAJAN V [facility] 4TH AMS, RESPIRATORY FAILUR E, UTI [id number] 05/04/2019 08:39:00 12:59:00 DIS Emergency QUIN JONES MD [facility] ER CHEST PAIN [id number] 09/10/2018 20:19:00 21:49:00 DIS Emergency NEERAJ VILLA APRN [facility] ER SEIZURE [id number] 08/27/2018 14:28:00 23:59:59 CLS Preadmit Paolo PERKINS MD [facility] SLEEP LAUREN [id number] 08/20/2018 10:18:00 23:59:59 CLS Outpatient Paolo PERKINS MD [facility] MODERATE TO SEVERE MITR AL REGURGITATION [id number] 08/03/2018 06:30:00 23:59:59 CLS Outpatient Paolo PERKINS MD [facility] SEVERE MITRAL REGURGITA TION BY PRIOR ECHO [id number] 07/24/2018 13:33:00 23:59:59 CLS Outpatient Paolo PERKINS MD [facility] CARD I34.0 MITRAL REGURGITAT ION [id number] 07/17/2018 07:52:00 23:59:59 CLS Outpatient Paolo PERKINS MD [facility] LAB N18.9 [id number] 02/20/2018 22:00:00 18:50:00 DIS Inpatient DEGROOT DO, GAVI K [facility] 4TH ELEVATED TROPONIN,ELEVA BRINA D- DIMER,SOA [id number] 02/03/2018 22:20:00 018 01:26:00 DIS Emergency MICHAEL BURRELL MD [facility] ER CP/SEIZURE [id number] 06/18/2017 18:03:00 017 21:14:00 DIS Emergency STAR ORTIZ [facility] ER LT LEG SORE/BRUISING [id number] 03/06/2017 09:45:00 017 11:46:00 DIS Emergency ROBERT GONZALES, QUIN Villavicencio [facility] ER ABD PAIN [id number] 11/23/2016 14:15:00 017 16:00:00 DIS Emergency ROBERT GONZALES, QUIN Villavicencio [facility] ER SOA/COUGH/VOMIT ING [id number] 08/05/2016 20:48:00 016 22:20:00 DIS Emergency HOLA BRIGHT DO [facility] ER R LEG WOUND/PAINFUL URI NATION/LOWER BACK PAIN [id number] 01/27/2016 20:37:00 016 02:05:00 DIS Emergency KAILA HOLA LANGE [facility] ER ABD PAIN,N,V,D [id number] 01/27/2016 01:55:00 016 05:47:00 DIS Emergency SANTHOSH LOWE MD [facility] ER L FLANK PAIN [id number] 02/02/2015 15:37:00 015 17:07:00 DIS Emergency STAR ORTIZ [facility] ER PAIN [id number] 01/19/2015 01:46:00 015 04:46:00 DIS Emergency SANTHOSH LOWE MD [facility] ER MERSA FLARING U P [id number] 11/27/2014 20:30:00 015 22:29:00 DIS Emergency STAR ORTIZ [facility] ER BACK PAIN [id number] 06/07/2014 16:31:00 014 14:12:00 DIS Inpatient GAVI DEGROOT DO, V [facility] ICU INTRACTABLE L HIP PAIN, UNABLE TO CARE FOR SELF [id number] 06/05/2014 13:39:00 014 16:45:00 DIS Emergency STAR ORTIZ [facility] ER FALL NECK PAIN AND VALDEMAR K PAIN [id number] 05/23/2014 20:00:00 11:35:00 DIS Inpatient JOANN GONZALES, MATTHEW Longoria [facility] ICU CHEST PAIN,COPD EXACERBATION,ELEVATED D-DIMER [id number] 04/09/2014 13:14:00 16:26:00 DIS Emergency NEERAJ VILLA APRN [facility] ER ABD PAIN [id number] 04/06/2014 10:52:00 11:45:00 DIS Inpatient GAVI DEGROOT DO, V [facility] 4TH RESPIRATORY DISTRESS,HYPOXIA,PNEUMONIA,CHEST PAIN [id number] 03/18/2014 16:36:00 18:25:00 DIS Emergency NEERAJ VILLA APRN [facility] ER SOA [id number] 02/04/2014 19:05:00 23:17:00 DIS Emergency HOLA BRIGHT DO a [facility] ER CHEST PAIN [id number] 11/14/2013 14:21:00 18:24:00 DIS Emergency NEERAJ VILLA 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 [facility] ER LOWER BACK PAIN [id number] 09/28/2013 23:45:00 02:02:00 DIS Emergency CHRISSY GONZALES, SANTHOSH Castellano [facility] ER CHEST PAIN [id number] 09/15/2013 12:59:00 14:32:00 DIS Emergency ROBERT GONZALES, QUIN Villavicencio [facility] ER COUGH [id number] 09/13/2013 15:15:00 08:46:00 DIS Inpatient ABELARDO AMANDA MD [facility] ICU CHEST PAIN, ELEVATED TR OPONIA [id number] 07/29/2013 14:25:00 14:49:00 DIS Outpatient CHARLEEN BRI Elliot MCCARTNEY [facility] WOUNDCARE LEG ABSCESS [id number] 06/20/2013 00:03:00 16:42:00 DIS Inpatient DEGROOT GAVI K V [facility] SURGICAL MULTIPLE ABSCESSES [id number] 06/04/2013 12:49:00 23:59:59 CLS Outpatient ABELARDO AMANDA MD [facility] RAD CHF [id number] 06/04/2013 10:53:00 23:59:59 CLS Outpatient ABELARDO AMANDA MD [facility] [id number] 05/30/2013 13:54:00 15:27:00 DIS Emergency CHRISSY GONZALES, SANTHOSH Castellano [facility] ER CHEST PAIN [id number] 05/10/2013 01:14:00 14:24:00 DIS Inpatient NGOC CASTILLO MD [facility] ICU NSTEMI,CHEST PAIN,HYPER TENSIVE URGENCY [id number] 04/29/2013 14:28:00 23:59:59 CLS Outpatient [id number] 05/15/2018 00:10:00 Document Registration [id number] 01/27/2016 05:53:00 Document Registration [id number] 12/01/2014 13:05:00 Document Registration [id number] 12/17/2012 04:30:00 Document Registration [id number] 08/03/2012 03:50:00 Document Registration [id number] 07/23/2012 17:10:00 Document Registration [id number] 05/25/2012 03:15:00 Document Registration [id number] 05/09/2012 19:20:00 Document Registration [id number] 03/28/2012 06:00:00 Document Registration [id number] 10/10/2011 13:00:00 Document Registration [id number] 07/16/2011 01:55:00 Document Registration [id number] 07/02/2011 06:44:00 Document Registration [id number] 04/12/2011 19:39:00 Document Registration [id number] 03/22/2011 02:40:00 Document Registration [id number] 03/19/2011 17:35:00 Document Registration [id number] 03/03/2011 20:58:00 Document Registration [id number] 01/21/2011 21:56:00 Document Registration [id number] 12/28/2010 15:45:00 Document Registration [id number] 11/04/2010 20:43:00 Document Registration [id number] 02/05/2010 04:25:00 Document Registration [id number] 04/29/2017 09:08:00 Document Registration [id number] 09/18/2016 08:45:00 Document Registration [id number] 02/05/2020 21:07:00 21:07:00 CAN Preadmit SALTERS DONAVAN LANGE [facility] [id number] 02/19/2018 14:28:36 02/19/2018 23:59:5 9 CLS Outpatient Flor BernalwsMarley [id number] 01/31/2015 15:03:00 01/31/2015 23:59: 59 CLS Outpatient KRANTHI PRECIADO MD [id number] 11/28/2014 09:37:00 11/28/2014 23:59: 59 CLS Outpatient TRACEE LANGE APRN [id number] 08/05/2014 14:32:00 08/05/2014 23:59: 59 CLS Outpatient TRACEE LANGE APRN [id number] 07/04/2014 12:54:00 07/04/2014 23:59: 59 CLS Outpatient GAVI DEGROOT DO [id number] 05/02/2014 15:01:00 05/02/2014 23:59: 59 CLS Outpatient GAVI DEGROOT DO [id number] 12/10/2013 14:53:00 12/10/2013 23:59: 59 CLS Outpatient TRACEE LANGE APRN [id number] 09/29/2013 15:37:00 09/29/2013 23:59: 59 CLS Outpatient TRACEE LANGE APRN [id number] 09/18/2013 12:00:00 09/18/2013 23:59: 59 CLS Outpatient TRACEE LANGE APRN [id number] 07/15/2013 14:04:00 07/15/2013 23:59: 59 CLS Outpatient KRANTHI PRECIADO MD [id number] 05/31/2013 09:17:00 05/31/2013 23:59: 59 CLS Outpatient KRANTHI PRECIADO MD [id number] 12/09/2012 17:16:00 12/09/2012 23:59: 59 CLS Outpatient TRACEE LANGE APRN Nona [id number] 10/28/2012 12:04:00 10/28/2012 23:59: 59 CLS Outpatient TRACEE LANGE APRN [id number] 10/19/2012 16:04:00 10/19/2012 23:59: 59 CLS Outpatient [id number] 09/16/2012 15:22:00 09/16/2012 23:59: 59 CLS Outpatient [id number] 08/14/2012 10:30:00 08/14/2012 23:59:5 9 CLS Outpatient KRANTHI PRECIADO MD [id number] 05/21/2013 10:29:00 Document Registration [id number] 03/02/2013 15:46:00 Document Registration [id number] 04/21/2020 09:20:00 04/21/2020 23:59:5 9 CLS Outpatient TRACEE LANGE APRN Nona [facility] [id number] 06/11/2019 13:40:00 Document Registration [id number] 05/05/2019 10:40:00 Document Registration [id number] 11/30/2018 15:40:00 Document Registration [id number] 09/04/2018 11:00:00 Document Registration
== END 2020-05-02 14:45 | disposition home or self-care (01) ==
LOC: EDUNIT# 12:32 → ER 12:35
DX: G40.909 Epilepsy, unspecified, not intractable, without status epilepticus (principal); I42.9 Cardiomyopathy, unspecified; I25.10 Atherosclerotic heart disease of native coronary artery without angina pectoris; I25.2 Old myocardial infarction; I10 Essential (primary) hypertension; E11.51 Type 2 diabetes mellitus with diabetic peripheral angiopathy without gangrene; Z86.73 Personal history of transient ischemic attack (TIA), and cerebral infarction without residual deficits; K21.9 Gastro-esophageal reflux disease without esophagitis; Z87.19 Personal history of other diseases of the digestive system; F41.9 Anxiety disorder, unspecified; F31.9 Bipolar disorder, unspecified; M19.90 Unspecified osteoarthritis, unspecified site; Z85.41 Personal history of malignant neoplasm of cervix uteri; F17.210 Nicotine dependence, cigarettes, uncomplicated; Z79.899 Other long term (current) drug therapy; Z87.820 Personal history of traumatic brain injury
CPT/HCPCS: 36415; 71045; 80053; 83615; 84145; 85025; 85379; 85652; 86141; 99283

== ENCOUNTER 2020-05-26 14:33 | Emergency (ER) | payer MEDICAID ==
[~2020-05-26] VITALS: Ht 152.4 cm; Wt 77.1 kg
--- NOTE | 2020-05-26 14:48 | ED Neurological Problem ---
General Chief Complaint: General Problems/Pain Stated Complaint: SEIZURES Source: patient Exam Limitations: no limitations History of Present Illness Date Seen by Provider: May 26, 2020 Time Seen by Provider: 14:30 Initial Comments The patient presents to ER from home by EMS [facility] with chief complaint that she's been having seizures today. Patient says she got up a little later and did not take her seizure medicines until later. EMS says when they arrived she was not postictal and has had no witnessed seizure-like activity. Home health was there visiting and witnessed the seizures lasting 5 minutes. Patient has a seizure disorder. Has no further complaints. No shortness of air or new pain nausea fevers chills. She does have some mild dysuria however. Patient uses oxygen at baseline to sleep. 94% on room air. Blood sugar was 140. Eileen Haskins who is the DPOA called and said the patient is a DO NOT RESUSCITATE, DO NOT INTUBATE. She says they also held her meds this morning. They always hold her meds when the home health nurse comes to flush her port so that she can be awakened enough to speak to them. They did give her her medicines before EMS arrived. Allergies and Home Medications Allergies Coded Allergies: nitrous oxide (Verified Allergy, Unknown, 06/08/07) Home Medications Acetaminophen 500 Mg Tablet, 1,000 MG PO Q6H PRN for PAIN-MILD, (Reported) Amlodipine Besylate 10 Mg Tablet, 5 MG PO BID, (Reported) TAKES OF A 10MG TAB TWICE DAILY Carvedilol 25 Mg Tab, 25 MG PO BID, (Reported) LAST FILLED 12-17-2019 #60 Clonidine HCl 0.2 Mg Tablet, 0.2 MG PO BID, (Reported) Cyclobenzaprine HCl 10 Mg Tablet, 10 MG PO TID PRN for MUSCLE SPASMS, (Reported) Ergocalciferol (Vitamin D2) 1,250 Mcg Capsule, 1,250 MCG PO WEEK, (Reported) Famotidine 20 Mg Tablet, 20 MG PO BID, (Reported) Hydralazine HCl 100 Mg Tablet, 100 MG PO TID, (Reported) Hydroxyzine HCl 25 Mg Tablet, 25 MG PO BID PRN for ANXIETY, (Reported) Levetiracetam 500 Mg Tablet, 1,000 MG PO BID LAST FILLED 12-07-2019 #120 TAKES 2 (500MG) TABS TWICE DAILY Prescribed by: MATTHEW DAVID on 02/08/20 1105 Loratadine 10 Mg Tablet, 10 MG PO DAILY, (Reported) Metoprolol Succinate 100 Mg Tab.er.24h, 100 MG PO DAILY, (Reported) Nitrofurantoin Monohyd/M-Cryst 100 Mg Capsule, 1 TAB PO BID Prescribed by: MATTHEW DAVID on 02/08/20 1109 Oxcarbazepine 300 Mg Tablet, 600 MG PO BID LAST FILLED 12-07-2019 #120 TAKES 2 (300MG)TABS TWICE DAILY Prescribed by: MATTHEW DAVID on 02/08/20 1105 Phenobarbital 64.8 Mg Tablet, 129.6 MG PO BID, (Reported) TAKES 2 (64.8MG) TABS TO EQUAL 129.6 Prazosin HCl 1 Mg Capsule, 1 MG PO HS, (Reported) Patient Home Medication List Home Medication List Reviewed: Yes Review of Systems Review of Systems Constitutional: No chills, No diaphoresis Eyes: Denies Blindness, Denies Blurred Vision Ears, Nose, Mouth, Throat: denies ear pain, denies ear discharge Respiratory: No cough, No short of breath Cardiovascular: No chest pain Gastrointestinal: No abdominal pain Genitourinary: No discharge, No dysuria Musculoskeletal: No back pain, No joint pain All Other Systems Reviewed Negative Unless Noted: Yes Past Cunmwyp-Ftlqoh-Jgovoc Hx Patient Social History Alcohol Use: Denies Use Recreational Drug Use: Yes Drug of Choice: + IV METH USE, THC USE Smoking Status: Current Everyday Smoker Type Used: Cigarettes 2nd Hand Smoke Exposure: Yes Recent Hopitalizations: No Immunizations Up To Date Tetanus Booster (TDap): Less than 5yrs PED Vaccines UTD: No Date of Pneumonia Vaccine: Jul 13, 2012 Date of Influenza Vaccine: Jul 15, 2019 Seasonal Allergies Seasonal Allergies: No Past Medical History Surgeries: Yes Abdominal, Adenoidectomy, Cardiac, Section, Hysterectomy, Oophorectomy, Tonsillectomy Respiratory: Yes COPD Currently Using CPAP: No Currently Using BIPAP: No Cardiac: Yes Cardiomyopathy, Coronary Artery Disease, Endocarditis, Heart Attack, Hypertension, Peripheral Vascular, Valvular Heart Disease Neurological: Yes Concussion, Seizure Disorder, Stroke, Traumatic Brain Injury 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 Disorders: No Female 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, 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 Sexually Transmitted Disease: No HIV/AIDS: No Genitourinary: Yes Kidney Infection, Bladder Infection, Kidney Stones, Renal Failure, UTI-Chronic Gastrointestinal: Yes Abdominal Hernia, Gastroesophageal Reflux, Pancreatitis, Hepatitis Musculoskeletal: Yes (CHRONIC NECK AND BACK PAIN; POOR AMBULATION) Arthritis, Chronic Back Pain Endocrine: Yes (HGB AIC WAS 6.5 ON 12/23/18) Diabetes, Non-Insulin dep HEENT: Yes (POOR DENTITION) Loss of Vision: Denies Hearing Impairment: Denies Cancer: No Cervical Psychosocial: Yes (POLYSUBSTANCE ABUSE) Anxiety, Bipolar, Depression Integumentary: No Blood Disorders: Yes (ANEMIA OF CHRONIC DISEASE) Adverse Reaction/Blood Tranf: No Family Medical History Abdominal aortic aneurysm 03 FATHER Alcoholism 03 FATHER 03 MOTHER 09 SISTER 09 SISTER Cancer 03 FATHER Cataract 03 FATHER 03 MOTHER Chest pain 03 MOTHER Family history: Diabetes mellitus 03 MOTHER Family history: Hypertension 03 MOTHER Family history: Thyroid disorder 03 MOTHER Headache 09 SISTER Heart disease 03 MOTHER History of drug abuse 03 FATHER 09 SISTER Myocardial infarction 03 MOTHER No Family History of: Coal's disease Aphasia Cancer of colon Congenital heart disease Congestive heart failure Cystic fibrosis Dementia Dysphagia Family history: Allergy Family history: Alzheimer's disease Family history: Arthritis Family history: Asthma Family history: Breast disease Family history: Cardiovascular disease Family history: Coronary thrombosis Family history: Gastrointestinal disease Family history: Glaucoma Family history: Osteoporosis Hearing loss Hereditary disease History of - anemia History of - disorder History of - respiratory disease Human immunodeficiency virus (HIV) seropositivity Hypercholesterolemia Infertile Kidney disease Malignant neoplasm of lung Parkinson's disease Prostate cancer Psychotic disorder Seizure disorder Stroke Tuberculosis Visual impairment AAA, Heart Disease, Diabetes Physical Exam Vital Signs Vital Signs - First Documented 05/26/20 14:37 Temp 36.3 Pulse 83 Resp 20 B/P (MAP) 152/84 (106) Pulse Ox 94 O2 Delivery Room Air Capillary Refill : Height, Weight, BMI Height: 5'3.00" Weight: 155lbs. 8.0oz. [id number]; 31.00 BMI Method:Stated General Appearance: WD/WN, no apparent distress HEENT: PERRL/EOMI, pharynx normal Neck: full range of motion, normal inspection Respiratory: lungs clear, normal breath sounds, no respiratory distress, no accessory muscle use Cardiovascular: normal peripheral pulses, regular rate, rhythm Peripheral Pulses: 2+ Radial Pulses (R), 2+ Radial Pulses (L) Gastrointestinal: normal bowel sounds, non tender, soft Extremities: normal range of motion, non-tender, normal inspection, normal capillary refill Neurologic/Psychiatric: alert, normal mood/affect, oriented x 3 Procedures/Interventions Date of ETT Placement: Sep 17, 2019 Time of ETT Placement: 1744 Progress/Results/Core Measures Results/Orders Lab Results Laboratory Tests Test 05/26/20 14:52 05/26/20 15:15 Range/Units Blood Gas Puncture Site LT RAD Blood Gas Patient Temperature 36.3 Arterial Blood pH 7.39 7.37-7.43 Arterial Blood Partial Pressure CO2 45 35-45 MMHG Arterial Blood Partial Pressure O2 68 L 79-93 MMHG Arterial Blood HCO3 27 23-27 MMOL/L Arterial Blood Total CO2 28.7 21.0-31.0 MMOL/L Arterial Blood Oxygen Saturation 92 L 94-100 % Arterial Blood Base Excess 2.6 H -2.5-2.5 MMOL/L Dominguez Test YES-POS Blood Gas Ventilator Setting NO Blood Gas Inspired Oxygen ROOM AIR Urine Color YELLOW Urine Clarity CLEAR Urine pH 7.0 5-9 Urine Specific [place] 1.020 1.016-1.022 Urine Protein TRACE H NEGATIVE Urine Glucose (UA) NEGATIVE NEGATIVE Urine Ketones NEGATIVE NEGATIVE Urine Nitrite NEGATIVE NEGATIVE Urine Bilirubin NEGATIVE NEGATIVE Urine Urobilinogen 0.2 < = 1.0 MG/DL Urine Leukocyte Esterase NEGATIVE NEGATIVE Urine RBC (Auto) NEGATIVE NEGATIVE Urine RBC NONE /HPF Urine WBC RARE /HPF Urine Squamous Epithelial Cells 5-10 /HPF Urine Crystals NONE /LPF Urine Bacteria TRACE /HPF Urine Casts NONE /LPF Urine Mucus NEGATIVE /LPF Urine Culture Indicated NO My Orders Orders - MICHAEL BURRELL Continuous Ekg Monitoring (05/26/20 14:43) Ekg Tracing (05/26/20 14:43) Urinalysis (05/26/20 14:43) Arterial Blood Gas (05/26/20 14:57) Vital Signs/I&O 05/26/20 14:37 Temp 36.3 Pulse 83 Resp 20 B/P (MAP) 152/84 (106) Pulse Ox 94 O2 Delivery Room Air Progress Progress Note #1: Time: 15:01 Progress Note The reason the patient's having a seizure today probably has to do with the fact that she held her medications in anticipation of home health nurse. EMS remarks that this is is alert and bright at she's ever been when they've ran her. Because he had patient's oxygen sats were borderline low 93-94% we did go ahead and obtain an ABG and some basic labs. Because of her dysuria will attempt to obtain urine. No fever or chills. Progress Note #2: Time: 15:51 Progress Note Patient's labs are not unexpected. Recurrent encourage her to go home and use her oxygen when necessary. Initial ECG Impression Date: May 26, 2020 Initial ECG Impression Time: 14:39 Initial ECG Rate: 85 Initial ECG Rhythm: Normal Sinus Initial ECG Intervals: Normal Initial ECG Impression: Normal, Nonspecific Changes Comment Sinus rhythm without likely relevant ST elevation or depression. Departure Impression Primary Impression: Epilepsy Qualified Codes: G40.909 - Epilepsy, unspecified, not intractable, without status epilepticus Disposition: 01 HOME, SELF-CARE Condition: Stable Departure-Patient Inst. Decision time for Depature: 15:51 Referrals: [facility] (PCP/Family) Primary Care Physician Patient Instructions: Seizures, Adult (DC) Add. Discharge Instructions: Please return to the ER if you have seizures lasting longer than 10 minutes each or [id number] seizures for greater than 30 minutes without full recovery in between. All discharge instructions reviewed with patient and/or family. Voiced understanding. MICHAEL BURRELL May 26, 2020 14:48
[2020-05-26 15:02] LABS: ABG BASE EXCESS 2.6 MMOL/L (-2.5-2.5); ABG OXYGEN SATURATION 92 % (94-100); ABG PCO2 45 MMHG (35-45); ABG PH 7.39 (7.37-7.43); ABG PO2 68 MMHG (79-93); ABG TCO2 28.7 MMOL/L (21.0-31.0); ALLENS TEST YES-POS
[2020-05-26 15:03] LABS: INSPIRED O2 ROOM AIR; PATIENT TEMP 36.3; VENTILATOR NO
[2020-05-26 15:22] LABS: BILIRUBIN,URINE NEGATIVE (NEGATIVE); CLARITY,URINE CLEAR; COLOR,URINE YELLOW; GLUCOSE, URINE (UA) NEGATIVE (NEGATIVE); KETONES,URINE NEGATIVE (NEGATIVE); LEUKOCYTE ESTERASE ,URINE NEGATIVE (NEGATIVE); NITRITE,URINE NEGATIVE (NEGATIVE); PROTEIN,URINE TRACE (NEGATIVE)
[2020-05-26 15:33] LABS: BACTERIA,URINE TRACE /HPF; WBC,URINE RARE /HPF
[2020-05-26 16:24] VITALS: BP 145/80
--- OUTSIDE RECORDS SUMMARY | 2020-05-26 16:25 | XMS REPORT | Clinical Summary ---
Author Author [facility] Organization [facility] Address Unknown Phone Unavailable Care Team Providers Care Administration Intern Name Role Phone PauloAngelaSandervika LANGE Unavailable Anita Lopez MD Unavailable Joshua Lynch MD Unavailable Sherice Laurent DO PCP Armin Ventura MD Unavailable Flory Kim RN Unavailable Unavailable Zaynab Zhang MD Unavailable Unavailable Source Comments Some departments are not documenting in the electronic medical record. If you d o not see the information that you expected, contact Release of Information in [facility] Information Management department at [phone] for further assistan ce in locating additional records.[facility] Allergies Comments Active Allergy Reactions Severity [...] Not on file Last Filed Vital Signs Reading Time Taken Comments Vital Sign 110/80 11/11/2014 1:07 PM BABY SITTER Blood Pressure 72 11/11/2014 1:07 PM BABY SITTER Pulse 36.5 C (97.7 F) 11/11/2014 1:07 PM BABY SITTER Temperature 16 11/11/2014 1:07 PM BABY SITTER Respiratory Rate 94% 09/21/2014 7:45 AM BABY SITTER Oxygen Saturation - - Inhaled Oxygen Concentration 82.1 kg (181 lb) 11/11/2014 1:07 PM BABY SITTER Weight 160 cm (5' 3") 11/11/2014 1:07 PM BABY SITTER Height 32.06 11/11/2014 1:07 PM BABY SITTER Body Mass Index Plan of Treatment Health [...] filefrom Last 3 Months Additional Health Concerns Onset Date Last Indicated Resolved Time Infection 06/14/2014 06/14/2014 MRSA Advance Directives 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
--- OUTSIDE RECORDS SUMMARY | 2020-05-26 16:29 | XMS REPORT ---
Author Author Michelle Dukes Doctor Organization [facility] Address Unknown Phone Unavailable Care Team Providers Care Ammonia Print Operator Name Role Phone Migration, Doctor Unavailable Unavailable PROBLEMS Type Condition ICD9-CM Code KIT32-CG Code Onset Dates Condition S tatus SNOMED Code Problem Lumbar neuritis M54.16 Active 1281 35506 Problem Thoracic neuritis M54.14 Active 58 889636 Problem Hypertension, benign I10 Active 57563552 Problem Cardiomyopathy I42.9 Active 87353 001 Problem Epileptic seizure, generalized G40.309 Active 08098368 Problem Excessive daytime sleepiness G47.19 A ctive [id number] Problem GERD (gastroesophageal reflux disease) K21.9 Active 831297793 Problem Panlobular emphysema J43.1 Active 8430615 Problem Intracranial injury, without loss of consciousness, subsequent encounter S06.9X0D Active 606690620 Problem Ventricular arrhythmia I49.9 Active 70836967 Problem Mood disorder F39 Active 466812 05 Problem Seasonal allergic rhinitis, unspecified trigger J3 0.2 Active 263974515 Problem Observed sleep apnea G47.30 Active 92967670 ALLERGIES No Information ENCOUNTERS Encounter Location Date Diagnosis [place] [address] [facility] [id number] [address] [place] [id number] May, [place] [address] [place] [id number] [address] [place] [address] Apr, Epileptic seizure, generaliz ed G40.309 and Lumbar neuritis M54.16 [facility] [address] [facility] [id number] [address] [place] [address] Apr, [place] [address] [facility] [id number] [address] [place] [address] Apr, [place] [address] [facility] [id number] [address] [place] [address] Mar, GERD (gastroesophageal reflu x disease) K21.9 [facility] [address] [id number] [address] [place] [address] Mar, [facility] [address] [id number] [address] [place] [address] Mar, [facility] [address] [facility] [id number] [address] [place] [address] Mar, [facility] [address] [id number] [address] [place] [address] Mar, [facility] [address] [id number] [address] [place] [address] Mar, [facility] [address] [id number] [address] [place] [address] Mar, [facility] [address] [facility] [id number] [address] [place] [address] February, Epileptic seizure, generaliz ed G40.309 and Hypertension, benign I10 [facility] [address] [id number] [address] [place] [address] February, Epileptic seizure, generaliz ed G40.309 [facility] [address] [facility] [id number] [address] [place] [address] February, [facility] [address] [facility] [id number] [address] [place] [address] Jan, [facility] [address] [facility] [id number] [address] [place] [address] Jan, [facility] [address] [facility] [id number] [address] [place] [address] Jan, [facility] [address] [facility] [id number] [address] [place] [address] Jan, Panlobular emphysema J43.1 [facility] [address] [facility] [id number] [address] [place] [address] Dec, Mood disorder F39 [facility] [address] [facility] [id number] [address] [place] [address] Nov, [facility] [address] [facility] [id number] [address] [place] [address] Oct, Cardiomyopathy I42.9 ; Hyper tension, benign I10 and Mood disorder F39 [facility] [address] [facility] [id number] [address] [place] [address] Oct, Epileptic seizure, generaliz ed G40.309 [facility] [address] [facility] [id number] [address] [place] [address] Oct, Panlobular emphysema J43.1 [facility] [address] [place] [id number] [address] [place] [address] Oct, [facility] [address] [facility] [id number] [address] [place] [address] Oct, Panlobular emphysema J43.1 [facility] [address] [place] [id number] [address] [place] [address] Sep, Unspecified convulsions R56. 9 [facility] [address] [facility] [id number] [address] [place] [address] Aug, Seizures R56.9 [facility] [address] [facility] [id number] [address] [place] [address] Aug, [facility] [address] [place] [id number] [address] [place] [phone] Aug, Hypertension, benign I10 [facility] [address] [facility] [id number] [address] [place] [address] Aug, [facility] [address] [place] [id number] [address] [place] [address] Aug, [facility] [address] [facility] [id number] [address] [place] [address] Aug, [facility] [address] [place] [id number] [address] [place] [address] Aug, Panlobular emphysema J43.1 ; Observed sleep apnea G47.30 and Excessive daytime sleepiness G47.19 [facility] [address] [facility] [id number] [address] [place] [address] Aug, [facility] [address] [facility] [id number] [address] [place] [address] Jun, Seizures R56.9 [facility] [address] [facility] [id number] [address] [place] [address] Jun, [facility] [address] [facility] [id number] [address] [place] [address] Jun, [facility] [address] [facility] [id number] [address] [place] [phone] Jun, [facility] [address] [facility] [id number] [address] [place] [address] May, Acute right-sided low back p ain without sciatica M54.5 [facility] [address] [facility] [id number] [address] [place] [address] May, Acute right-sided low back p ain without sciatica M54.5 [facility] [address] [facility] [id number] [address] [place] [address] Apr, High risk medication use Z79 .899 ; Acute septic pulmonary embolism without acute cor pulmonale I26.90 and Cellulitis of leg without foot L03.119 [facility] [address] [facility] [id number] [address] [place] [address] Jan, [facility] [address] [facility] [id number] [address] [place] [address] Jan, Seizures R56.9 [facility] [address] [facility] [id number] [address] [place] [address] Dec, Seizures R56.9 [facility] [address] [facility] [id number] [address] [place] [address] Nov, Dysuria R30.0 and Urinary tr act infection without hematuria, site unspecified N39.0 [facility] [address] [facility] [id number] [address] [place] [address] Nov, [facility] [address] [facility] [id number] [address] [place] [address] Nov, Seizures R56.9 [facility] [address] [facility] [id number] [address] [place] [id number] Sep, Seizures R56.9 [facility] [address] [facility] [id number] [address] [place] [address] Sep, Seasonal allergic rhinitis, unspecified trigger J30.2 [facility] [address] [facility] [id number] [address] [place] [address] Aug, Neck pain on left side M54.2 ; Mood disorder F39 and GERD (gastroesophageal reflux disease) K21.9 [facility] [address] [facility] [id number] [address] [place] [address] Aug, Seizures R56.9 [facility] [address] [facility] [id number] [address] [place] [address] Aug, Mood disorder F39 ; Neck dionicio n on left side M54.2 and Hypertension, benign I10 [facility] [address] [place] [id number] [address] [place] [address] Aug, [facility] [address] [facility] [id number] [address] [place] [address] Aug, [facility] [address] [facility] [id number] [address] [place] [address] Jul, [facility] [address] [facility] [id number] [address] [place] [address] Jul, Hypertension, benign I10 [facility] [address] [facility] [id number] [address] [place] [address] Jul, [facility] [address] [place] [id number] [address] [place] [address] Jul, Thoracic neuritis M54.14 ; P ain of left leg M79.605 and Pain in right leg M79.604 [facility] [address] [facility] [id number] [address] [place] [address] Jun, Seizures R56.9 [facility] [address] [facility] [id number] [address] [place] [address] May, [facility] [address] [id number] [address] [place] [address] May, [facility] [address] [id number] [address] [place] [address] May, [facility] [address] [facility] [id number] [address] [place] [address] May, Seizures R56.9 [facility] [address] [facility] [id number] [address] [place] [address] May, [facility] [address] [facility] [id number] [address] [place] [address] May, Delirium R41.0 [facility] [address] [facility] [id number] [address] [place] [address] Apr, [facility] [address] [facility] [id number] [address] [place] [address] February, Ventricular arrhythmia I49.9 [facility] [address] [facility] [id number] [address] [place] [address] February, [facility] [address] [facility] [id number] [address] [place] [address] Dec, Thoracic neuritis M54.14 ; L umbar neuritis M54.16 and Epileptic seizure, generalized G40.309 [facility] [address] [facility] [id number] [address] [place] [address] Sep, Epileptic seizure, generaliz ed G40.309 and Lumbar neuritis M54.16 [facility] [address] [place] [id number] [address] [place] [address] Aug, Thoracic neuritis M54.14 and Lumbar neuritis M54.16 [place] [address] [address] Jun, [place] [address] [address] 11 Jun, 2017 Abscess of leg, left L02.416 [place] [address] [address] May, Lumbar neuritis M54.16 ; Tho racic neuritis M54.14 ; Intracranial injury, without loss of consciousness, subsequent encounter S06.9X0D and Cardiomyopathy I42.9 [place] [address] [address] Apr, Lumbar neuritis M54.16 [place] [address] [address] Apr, [place] [address] [address] Apr, Elevated liver enzymes R74.8 and Renal insufficiency N28.9 [place] [address] [place] [id number] [place] [address] Apr, Lumbar neuritis M54.16 ; Tho racic neuritis M54.14 ; Hypertension, benign I10 ; Cardiomyopathy I42.9 and Epileptic seizure, generalized G40.309 [place] [address] [place] [id number] [address] [place] [address] Mar, [place] [address] [address] February, [place] [address] [place] [id number] [place] [address] February, Lumbar neuritis M54.16 ; Tho racic neuritis M54.14 ; Hypertension, benign I10 ; Cardiomyopathy I42.9 and Epileptic seizure, generalized G40.309 [facility] [address] [address] Dec, [facility] [address] [address] Sep, Epigastric mass R19.06 [facility] [address] [address] Sep, Epigastric mass R19.06 [facility] [address] [address] Sep, [facility] [address] [address] Sep, Epigastric mass R19.06 [facility] [address] [address] Sep, Epigastric mass R19.06 and L roque mass R91.8 [facility] [address] [address] Jul, Shortness of breath R06.02 ; Dysuria R30.0 and Acute bronchitis, unspecified organism J20.9 [facility] [address] [address] Jul, [place] [address] [address] 15 Jun, 2016 Seizures R56.9 ; Thoracic ne uritis M54.14 ; Lumbar neuritis M54.16 and GERD (gastroesophageal reflux disease) K21.9 [facility] [address] [address] Jan, [place] [address] [address] Sep, [facility] [address] [address] Sep, Intracranial injury, without loss of consciousness, subsequent encounter S06.9X0D ; Cardiomyopathy I42.9 ; GERD (gastroesophageal reflux disease) K21.9 ; Hypertension, benign I10 ; Thoracic neuritis M54.14 and Lumbar neuritis M54.16 [facility] [address] [place] [id number] [address] [place] [address] Mar, [facility] [address] [place] [id number] [address] [place] [address] Mar, Coronary atherosclerosis of unspecified type of vessel, [place] or graft 414.00 ; Unspecified essential hypertension 401.9 ; Thoracic or lumbosacral neuritis or radiculitis, unspecified 724.4 and Other convulsions 780.39 [facility] [address] [address] Jan, [facility] [address] [place] [id number] [address] [place] [address] Jan, [facility] [address] [place] [id number] [address] [place] [address] Nov, [facility] [address] [place] [id number] [address] [place] [address] Nov, [facility] [address] [address] Nov, [facility] [address] [place] [id number] [address] [place] [address] Nov, [facility] [address] [place] [id number] [address] [place] [address] Nov, [facility] [address] [facility] [id number] [address] [place] [address] Nov, [facility] [address] [place] [id number] [address] [place] [address] Nov, [facility] [address] [place] [id number] [address] [place] [address] Nov, [facility] [address] [id number] [address] [place] [address], [place] [address] Nov, [facility] [address] [id number] [address] [place] [address], [place] [address] Nov, [facility] [address] [id number] [address] [place] [address], [place] [address] Sep, [facility] [address] [id number] [address] [place] [address], [place] [address] Sep, [facility] [address] [id number] [address] [place] [address], [place] [address] Aug, [facility] [address] [id number] [address] [place] [address], [place] [address] Aug, [facility] [address] [id number] [address] [place] [address], [place] [address] Aug, [facility] [address] [id number] [address] [place] [address], [place] [address] Aug, [facility] [address] [id number] [address] [place] [address], [place] [address] Jul, [facility] [address] [id number] [address] [place] [address], [place] [address] Jul, [facility] [address] [id number] [address] [place] [address], [place] [address] Jul, [facility] [address] [id number] [address] [place] [address], [place] [address] Jul, [facility] [address] [id number] [address] [place] [address], [place] [address] Jun, [facility] [address] [id number] [address] [place] [address], [place] [address] Jun, [facility] [address] [id number] [address] [place] [address], [place] [address] Jun, [facility] [address] [id number] [address] [place] [address], [place] [address] May, [facility] [address] [id number] [address] [place] [address], [place] [address] May, [facility] [address] [id number] [address] [place] [address], [place] [address] May, [facility] [address] [id number] [address] [place] [address], [place] [address] May, [facility] [address] [id number] [address] [place] [address], [place] [address] May, [facility] [address] [id number] [address] [place] [address], [place] [address] May, [facility] [address] [id number] [address] [place] [address], [place] [address] May, [facility] [address] [id number] [address] [place] [address], [place] [address] May, [facility] [address] [id number] [address] [place] [address], [place] [address] February, [facility] [address] [id number] [address] [place] [address], [place] [address] February, [facility] [address] [id number] [address] [place] [address], [place] [address] Jan, [facility] [address] [id number] [address] [place] [address], [place] [address] Jan, [facility] [address] [id number] [address] [place] [address], [place] [address] Jan, [facility] [address] [id number] [address] [place] [address], [place] [address] Jan, [facility] [address] [id number] [address] [place] [address], [place] [address] Nov, [facility] [address] [id number] [address] [place] [address], [place] [address] Nov, [facility] [address] [id number] [address] [place] [address], [place] [address] Nov, [facility] [address] [id number] [address] [place] [address], [place] [address] Nov, [facility] [address] [id number] [address] [place] [address], [place] [address] Sep, [facility] [address] [id number] [address] [place] [address], [place] [address] Sep, [facility] [address] [id number] [address] [place] [address], [place] [address] Sep, [facility] [address] [id number] [address] [place] [address], [place] [address] Sep, [facility] [address] [id number] [address] [place] [address], [place] [address] Sep, [facility] [address] [id number] [address] [place] [address], [place] [address] Sep, [facility] [address] [id number] [address] [place] [address], [place] [address] Jul, [facility] [address] [id number] [address] [place] [address], [place] [address] Jul, [facility] [address] [id number] [address] [place] [address], [place] [address] Jun, [facility] [address] [id number] [address] [place] [address], [place] [address] Jun, [facility] [address] [id number] [address] [place] [address], [place] [id number] 17 Jun, 2013 [facility] [address] [id number] [address] [place] [id number] May, [facility] [address] [place] [id number] May, [facility] [address] [id number] [address] [place] [address], [place] [address] May, [facility] [address] [id number] [address] [place] [address], [place] [address] May, [facility] [address] [id number] [address] [place] [address], [place] [address] May, [facility] [address] [id number] [address] [place] [address], [place] [address] May, [facility] [address] [id number] [address] [place] [address], [place] [address] May, [facility] [address] [id number] [address] [place] [address], [place] [address] Apr, [facility] [address] [id number] [address] [place] [address], [place] [address] Apr, [facility] [address] [id number] [address] [place] [address], [place] [address] Apr, [facility] [address] [id number] [address] [place] [address], [place] [address] Apr, [facility] [address] [id number] [address] [place] [address], [place] [address] Mar, [facility] [address] [id number] [address] [place] [address], [place] [address] February, [facility] [address] [id number] [address] [place] [address], [place] [address] Jan, [facility] [address] [id number] [address] [place] [address], [place] [address] Dec, [facility] [address] [id number] [address] [place] [address], [place] [address] Dec, [facility] [address] [id number] [address] [place] [address], [place] [address] Dec, [facility] [facility] [address] [id number] [address] [place] [address], [place] [address] Nov, [facility] [address] [id number] [address] [place] [address], [place] [address] Nov, [facility] [address] [id number] [address] [place] [address], [place] [address] Nov, [facility] [address] [id number] [address] [place] [address], [place] [address] Oct, [facility] [address] [id number] [address] [place] [address], [place] [address] Oct, [facility] [address] [id number] [address] [place] [address], [place] [address] Sep, [facility] [address] [id number] [address] [place] [address], [place] [address] Sep, [facility] [address] [id number] [address] [place] [address], [place] [address] Sep, [facility] [address] [id number] [address] [place] [address], [place] [address] Sep, [facility] [address] [id number] [address] [place] [address], [place] [address] Sep, [facility] [address] [id number] [address] [place] [address], [place] [address] Sep, [facility] [address] [id number] [address] [place] [address], [place] [address] Aug, [facility] [address] [id number] [address] [place] [address], [place] [address] Aug, [facility] [address] [id number] [address] [place] [address], [place] [address] Aug, [facility] [address] [id number] [address] [place] [address], [place] [address] Aug, [facility] [address] [id number] [address] [place] [address], [place] [address] Aug, [facility] [address] [id number] [address] [place] [address], [place] [address] Aug, [facility] [address] [id number] [address] [place] [address], [place] [address] Aug, [facility] [address] [id number] [address] [place] [address], [place] [address] Aug, [facility] [address] [id number] [address] [place] [id number] Aug, [facility] [address] [id number] [address] [place] [address], [place] [address] Aug, [facility] [address] [id number] [address] [place] [address], [place] [address] Jul, [facility] [address] [id number] [address] [place] [address], [place] [address] Jul, [facility] [address] [id number] [address] [place] [address], [place] [address] Jul, [facility] [address] [id number] [address] [place] [address], [place] [address] Jul, [facility] [address] [id number] [address] [place] [address], [place] [address] Jul, [facility] [address] [id number] [address] [place] [address], [place] [address] Jul, [facility] [address] [id number] [address] [place] [address], [place] [address] Jul, [facility] [address] [id number] [address] [place] [address], [place] [address] Jul, [facility] [address] [id number] [address] [place] [id number] 18 Jul, 2012 [facility] [address] [id number] [address] [place] [address], [place] [address] 17 Jul, 2012 [facility] [address] [id number] [address] [place] [address], [place] [address] Jul, [facility] [address] [id number] [address] [place] [id number] Jul, [facility] [address] [id number] [address] [place] [address], [place] [address] Jul, [facility] [address] [id number] [address] [place] [address], [place] [address] Jul, [facility] [address] [id number] [address] [place] [address], [place] [address] Jul, [facility] [address] [id number] [address] [place] [address], [place] [address] 28 Jun, 2012 [facility] [address] [id number] [address] [place] [address], [place] [address] 24 Jun, 2012 [facility] [address] [id number] [address] [place] [address], [place] [address] Jun, [facility] [address] [id number] [address] [place] [address], [place] [address] May, [facility] [address] [id number] [address] [place] [address], [place] [address] May, [facility] [address] [id number] [address] [place] [address], [place] [address] Mar, [facility] [address] [id number] [address] [place] [address], [place] [address] Mar, [facility] [address] [id number] [address] [place] [address], [place] [address] February, [facility] [address] [id number] [address] [place] [address], [place] [address] February, [facility] [address] [id number] [address] [place] [address], [place] [address] Nov, [facility] [address] [id number] [address] [place] [address], [place] [address] Oct, [facility] [address] [id number] [address] [place] [address], [place] [address] Oct, [facility] [address] [id number] [address] [place] [address], [place] [address] Oct, [facility] [address] [id number] [address] [place] [address] Aug, [facility] [address] [id number] [address] [place] [id number] Jul, [facility] [address] [id number] [address] [place] [address] Sep, [facility] [address] [id number] [address] [place] [phone] Aug, [facility] [address] [id number] [address] [place] [address] Jul, [facility] [address] [id number] [address] [place] [address] Apr, [facility] [address] [id number] [address] [place] [address] February, [facility] [address] [id number] [address] [place] [address] Sep, [facility] [address] [id number] [address] [place] [address] Sep, [facility] [address] [id number] [address] [place] [address] Sep, [facility] [address] [id number] [address] [place] [id number] Apr, [facility] [address] [id number] [address] [place] [address] Mar, [facility] [address] [id number] [address] [place] [address] February, [facility] [address] [id number] [address] [place] [phone] Jan, [facility] [address] [id number] [address] [place] [address] Jul, IMMUNIZATIONS No Known Immunizations SOCIAL HISTORY Never Assessed REASON FOR VISIT PLAN OF CARE VITAL SIGNS MEDICATIONS Unknown Medications RESULTS No Results PROCEDURES No Known procedures INSTRUCTIONS MEDICATIONS ADMINISTERED No Known Medications MEDICAL (GENERAL) HISTORY Type Description Date Medical History 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
--- OUTSIDE RECORDS SUMMARY | 2020-05-26 16:30 | XMS REPORT ---
Author Author Michelle LANGE Organization [facility] Address [address] [place] [address] Care Team Providers Care President Celebrity Acquistion Name Role Phone TRACEE LANGE Unavailable PROBLEMS Type Condition ICD9-CM Code CLS37-ZQ Code Onset Dates Condition S tatus SNOMED Code Problem Lumbar neuritis M54.16 Active 1281 25791 Problem Thoracic neuritis M54.14 Active 58 119693 Problem Hypertension, benign I10 Active 74979847 Problem Cardiomyopathy I42.9 Active 00757 001 Problem Epileptic seizure, generalized G40.309 Active 18797123 Problem Excessive daytime sleepiness G47.19 A ctive [id number] Problem GERD (gastroesophageal reflux disease) K21.9 Active 179287455 Problem Panlobular emphysema J43.1 Active 7825523 Problem Intracranial injury, without loss of consciousness, subsequent encounter S06.9X0D Active 338616071 Problem Ventricular arrhythmia I49.9 Active 80940116 Problem Mood disorder F39 Active 432579 05 Problem Seasonal allergic rhinitis, unspecified trigger J3 0.2 Active 202683922 Problem Observed sleep apnea G47.30 Active [id number] ALLERGIES No Information ENCOUNTERS Encounter Location Date Diagnosis [place] [address] [facility] [id number] [address] [place] [address] May, [facility] [address] [place] [id number] [address] [place] [address] Apr, Epileptic seizure, generaliz ed G40.309 and Lumbar neuritis M54.16 [facility] [address] [facility] [id number] [address] [place] [address] Apr, [facility] [address] [facility] [id number] [address] [place] [address] Apr, [facility] [address] [place] [id number] [address] [place] [address] Mar, GERD (gastroesophageal reflu x disease) K21.9 [facility] [address] [id number] [address] [place] [address] Mar, [facility] [address] [id number] [address] [place] [address] Mar, [facility] [address] [facility] [id number] [address] [place] [address] Mar, [facility] [address] [facility] [id number] [address] [place] [address] Mar, [facility] [address] [facility] [id number] [address] [place] [address] Mar, [facility] [address] [facility] [id number] [address] [place] [address] Mar, [facility] [address] [facility] [id number] [address] [place] [address] February, Epileptic seizure, generaliz ed G40.309 and Hypertension, benign I10 [facility] [address] [facility] [id number] [address] [place] [address] February, Epileptic seizure, generaliz ed G40.309 [facility] [address] [facility] [id number] [address] [place] [address] February, [facility] [address] [facility] [id number] [address] [place] [address] Jan, [facility] [address] [facility] [id number] [address] [place] [address] Jan, [facility] [address] [facility] [id number] [address] [place] [address] Jan, [facility] [address] [facility] [id number] [address] [place] [address] Jan, Panlobular emphysema J43.1 [facility] [address] [facility] [id number] [address] [place] [address] Dec, Mood disorder F39 [facility] [address] [facility] [id number] [address] [place] [address] Nov, [facility] [address] [facility] [id number] [address] [place] [address] Oct, Cardiomyopathy I42.9 ; Hyper tension, benign I10 and Mood disorder F39 [facility] [address] [facility] [id number] [address] [place] [address] Oct, Epileptic seizure, generaliz ed G40.309 [facility] [address] [facility] [id number] [address] [place] [address] Oct, Panlobular emphysema J43.1 [facility] [address] [facility] [id number] [address] [place] [address] Oct, [facility] [address] [facility] [id number] [address] [place] [address] Oct, Panlobular emphysema J43.1 [facility] [address] [facility] [id number] [address] [place] [address] Sep, Unspecified convulsions R56. 9 [facility] [address] [facility] [id number] [address] [place] [address] Aug, Seizures R56.9 [facility] [address] [facility] [id number] [address] [place] [address] Aug, [facility] [address] [facility] [id number] [address] [place] [address] Aug, Hypertension, benign I10 [facility] [address] [facility] [id number] [address] [place] [address] Aug, [facility] [address] [facility] [id number] [address] [place] [address] Aug, [facility] [address] [facility] [id number] [address] [place] [address] Aug, [facility] [address] [place] [id number] [address] [place] [address] Aug, Panlobular emphysema J43.1 ; Observed sleep apnea G47.30 and Excessive daytime sleepiness G47.19 [facility] [address] [id number] [address] [place] [address] Aug, [facility] [address] [id number] [address] [place] [address] Jun, Seizures R56.9 [facility] [address] [id number] [address] [place] [address] Jun, [facility] [address] [id number] [address] [place] [address] Jun, [facility] [address] [id number] [address] [place] [address] Jun, [facility] [address] [id number] [address] [place] [address] May, Acute right-sided low back p ain without sciatica M54.5 [facility] [address] [id number] [address] [place] [address] May, Acute right-sided low back p ain without sciatica M54.5 [facility] [address] [id number] [address] [place] [address] Apr, High risk medication use Z79 .899 ; Acute septic pulmonary embolism without acute cor pulmonale I26.90 and Cellulitis of leg without foot L03.119 [facility] [address] [id number] [address] [place] [address] Jan, [facility] [address] [facility] [id number] [address] [place] [address] Jan, Seizures R56.9 [facility] [address] [id number] [address] [place] [address] Dec, Seizures R56.9 [facility] [address] [address] Nov, Dysuria R30.0 and Urinary tr act infection without hematuria, site unspecified N39.0 [facility] [address] [place] [id number] [place] [address] Nov, [facility] [address] [address] Nov, Seizures R56.9 [facility] [address] [address] Sep, Seizures R56.9 [facility] [address] [address] Sep, Seasonal allergic rhinitis, unspecified trigger J30.2 [facility] [address] [id number] Aug, Neck pain on left side M54.2 ; Mood disorder F39 and GERD (gastroesophageal reflux disease) K21.9 [facility] [address] [address] Aug, Seizures R56.9 [facility] [address] [address] Aug, Mood disorder F39 ; Neck dionicio n on left side M54.2 and Hypertension, benign I10 [facility] [address] [address] Aug, [facility] [address] [address] Aug, [facility] [address] [address] Jul, [facility] [address] [address] Jul, Hypertension, benign I10 [facility] [address] [address] Jul, [facility] [address] [facility] [id number] [address] [place] [address] Jul, Thoracic neuritis M54.14 ; P ain of left leg M79.605 and Pain in right leg M79.604 [facility] [address] [facility] [id number] [address] [place] [address] Jun, Seizures R56.9 [facility] [address] [id number] [address] [place] [address] May, [facility] [address] [facility] [id number] [address] [place] [address] May, [facility] [address] [facility] [id number] [address] [place] [address] May, [facility] [address] [place] [id number] [address] [place] [address] May, Seizures R56.9 [facility] [address] [facility] [id number] [address] [place] [address] May, [facility] [address] [facility] [id number] [address] [place] [address] May, Delirium R41.0 [facility] [address] [facility] [id number] [address] [place] [address] Apr, [facility] [address] [place] [id number] [address] [place] [address] February, Ventricular arrhythmia I49.9 [facility] [address] [facility] [id number] [address] [place] [address] February, [facility] [address] [place] [id number] [address] [place] [address] Dec, Thoracic neuritis M54.14 ; L umbar neuritis M54.16 and Epileptic seizure, generalized G40.309 [facility] [address] [facility] [id number] [address] [place] [address] Sep, Epileptic seizure, generaliz ed G40.309 and Lumbar neuritis M54.16 [facility] [address] [facility] [id number] [address] [place] [address] Aug, Thoracic neuritis M54.14 and Lumbar neuritis M54.16 [facility] [address] [facility] [id number] [address] [place] [address] Jun, [facility] [address] [facility] [id number] [address] [place] [address] Jun, Abscess of leg, left L02.416 [facility] [address] [facility] [id number] [address] [place] [address] May, Lumbar neuritis M54.16 ; Tho racic neuritis M54.14 ; Intracranial injury, without loss of consciousness, subsequent encounter S06.9X0D and Cardiomyopathy I42.9 [facility] [address] [facility] [id number] [address] [place] [address] Apr, Lumbar neuritis M54.16 [facility] [address] [facility] [id number] [address] [place] [address] Apr, [facility] [address] [place] [id number] [address] [place] [address] Apr, Elevated liver enzymes R74.8 and Renal insufficiency N28.9 [facility] [address] [facility] [id number] [address] [place] [address] Apr, Lumbar neuritis M54.16 ; Tho racic neuritis M54.14 ; Hypertension, benign I10 ; Cardiomyopathy I42.9 and Epileptic seizure, generalized G40.309 [facility] [address] [facility] [id number] [address] [place] [address] Mar, [facility] [address] [facility] [id number] [address] [place] [address] February, [facility] [address] [facility] [id number] [address] [place] [address] February, Lumbar neuritis M54.16 ; Tho racic neuritis M54.14 ; Hypertension, benign I10 ; Cardiomyopathy I42.9 and Epileptic seizure, generalized G40.309 [facility] [address] [address] Dec, [facility] [address] [address] Sep, Epigastric mass R19.06 [facility] [address] [address] Sep, Epigastric mass R19.06 [facility] [address] [address] Sep, [facility] [address] [address] Sep, Epigastric mass R19.06 [place] [address] [address] Sep, Epigastric mass R19.06 and L roque mass R91.8 [facility] [address] [address] Jul, Shortness of breath R06.02 ; Dysuria R30.0 and Acute bronchitis, unspecified organism J20.9 [facility] [address] [address] Jul, [facility] [address] [address] 15 Jun, 2016 Seizures R56.9 ; Thoracic ne uritis M54.14 ; Lumbar neuritis M54.16 and GERD (gastroesophageal reflux disease) K21.9 [facility] [address] [address] Jan, [facility] [address] [address] 10 Sep, 2015 [facility] [address] [address] Sep, Intracranial injury, without loss of consciousness, subsequent encounter S06.9X0D ; Cardiomyopathy I42.9 ; GERD (gastroesophageal reflux disease) K21.9 ; Hypertension, benign I10 ; Thoracic neuritis M54.14 and Lumbar neuritis M54.16 [facility] [address] [address] Mar, [facility] [address] [address] Mar, Coronary atherosclerosis of unspecified type of vessel, tribal or graft 414.00 ; Unspecified essential hypertension 401.9 ; Thoracic or lumbosacral neuritis or radiculitis, unspecified 724.4 and Other convulsions 780.39 [facility] [address] [address] Jan, [facility] [address] [address] Jan, [facility] [address] [address] Nov, [facility] [address] [address] Nov, [facility] [address] [address] Nov, [facility] [address] [address] Nov, [facility] [address] [address] Nov, [facility] [address] [address] Nov, [facility] [address] [address] Nov, [facility] [address] [address] Nov, [facility] [address] [id number] [address] [place] [address], [place] [address] Nov, [facility] [address] [id number] [address] [place] [address], [place] [address] Nov, [facility] [address] [id number] [address] [place] [address], [place] [address] Sep, [facility] [address] [id number] [address] [place] [address], [place] [address] Sep, [facility] [address] [id number] [address] [place] [address], [place] [address] Aug, [facility] [address] [id number] [address] [place] [address], [place] [address] Aug, [facility] [address] [id number] [address] [place] [address], [place] [address] Aug, [facility] [address] [id number] [address] [place] [address], [place] [address] Aug, [facility] [address] [id number] [address] [place] [address], [place] [address] Jul, [facility] [address] [id number] [address] [place] [address], [place] [address] Jul, [facility] [address] [id number] [address] [place] [address], [place] [address] Jul, [facility] [address] [id number] [address] [place] [address], [place] [address] Jul, [facility] [address] [id number] [address] [place] [address], [place] [address] Jun, [facility] [address] [id number] [address] [place] [address], [place] [address] Jun, [facility] [address] [id number] [address] [place] [address], [place] [address] Jun, [facility] [address] [id number] [facility] [place] [address] May, [facility] [address] [id number] [address] [place] [address], [place] [address] May, [facility] [address] [id number] [address] [place] [address], [place] [address] May, [facility] [address] [id number] [address] [place] [address], [place] [address] May, [facility] [address] [id number] [address] [place] [address], [place] [address] May, [facility] [address] [id number] [address] [place] [address], [place] [address] May, [facility] [address] [id number] [address] [place] [address], [place] [address] May, [facility] [address] [id number] [address] [place] [address], [place] [address] May, [facility] [address] [id number] [address] [place] [address], [place] [address] February, [facility] [address] [id number] [address] [place] [address], [place] [address] February, [facility] [address] [id number] [address] [place] [address], [place] [address] Jan, [facility] [address] [id number] [address] [place] [address], [place] [address] Jan, [facility] [address] [id number] [address] [place] [address], [place] [address] Jan, [facility] [address] [id number] [address] [place] [address], [place] [address] Jan, [facility] [address] [id number] [address] [place] [address], [place] [address] Nov, [facility] [address] [id number] [address] [place] [address], [place] [address] Nov, [facility] [address] [id number] [address] [place] [address], [place] [address] Nov, [facility] [address] [id number] [address] [place] [address], [place] [address] Nov, [facility] [address] [id number] [address] [place] [address], [place] [address] Sep, [facility] [address] [id number] [address] [place] [address], [place] [address] Sep, [facility] [address] [id number] [address] [place] [address], [place] [address] Sep, [facility] [address] [id number] [address] [place] [address], [place] [address] Sep, [facility] [address] [id number] [address] [place] [address], [place] [address] Sep, [facility] [address] [id number] [address] [place] [address], [place] [address] Sep, [facility] [address] [id number] [address] [place] [address], [place] [address] Jul, [facility] [address] [id number] [address] [place] [address], [place] [address] Jul, [facility] [address] [id number] [address] [place] [address] Jun, [facility] [address] [id number] [address] [place] [address], [place] [address] Jun, [facility] [address] [id number] [address] [place] [address], [place] [address] Jun, [facility] [address] [id number] [address] [place] [address], [place] [address] May, [facility] [address] [place] [id number] May, [facility] [address] [id number] [address] [place] [address] May, [facility] [address] [id number] [address] [place] [address], [place] [address] May, [facility] [address] [id number] [address] [place] [address], [place] [address] May, [facility] [address] [id number] [address] [place] [address], [place] [address] May, [facility] [address] [id number] [address] [place] [address], [place] [address] May, [facility] [address] [id number] [address] [place] [address], [place] [address] Apr, [facility] [address] [id number] [address] [place] [address], [place] [address] Apr, [facility] [address] [id number] [address] [place] [address], [place] [address] Apr, [facility] [address] [id number] [address] [place] [address], [place] [address] Apr, [facility] [address] [id number] [address] [place] [address], [place] [address] Mar, [facility] [address] [id number] [address] [place] [address], [place] [address] February, [facility] [address] [id number] [address] [place] [address], [place] [address] Jan, [facility] [address] [id number] [address] [place] [address], [place] [address] Dec, [facility] [address] [id number] [address] [place] [address], [place] [address] Dec, [facility] [address] [id number] [address] [place] [address], [place] [address] Dec, [facility] [address] [id number] [address] [place] [address], [place] [address] Nov, [facility] [address] [id number] [address] [place] [address], [place] [address] Nov, [facility] [address] [id number] [address] [place] [address], [place] [address] Nov, [facility] [address] [id number] [address] [place] [address], [place] [address] Oct, [facility] [address] [id number] [address] [place] [address], [place] [address] Oct, [facility] [address] [id number] [address] [place] [address], [place] [address] Sep, [facility] [address] [id number] [address] [place] [address], [place] [address] Sep, [facility] [address] [id number] [address] [place] [address], [place] [address] Sep, [facility] [address] [id number] [address] [place] [address], [place] [address] Sep, [facility] [address] [id number] [address] [place] [address], [place] [id number] Sep, [facility] [address] [id number] [address] [place] [address], [place] [address] Sep, [facility] [address] [id number] [address] [place] [address], [place] [address] Aug, [facility] [address] [id number] [address] [place] [address], [place] [address] Aug, [facility] [address] [id number] [address] [place] [address], [place] [address] Aug, [facility] [address] [id number] [address] [place] [address], [place] [address] Aug, [facility] [address] [id number] [address] [place] [address], [place] [address] Aug, [facility] [address] [id number] [address] [place] [address], [place] [address] Aug, [facility] [address] [id number] [address] [place] [address], [place] [address] Aug, [facility] [address] [id number] [address] [place] [address], [place] [address] Aug, [facility] [address] [id number] [address] [place] [address], [place] [address] Aug, [facility] [address] [id number] [address] [place] [address], [place] [address] Aug, [facility] [address] [id number] [address] [place] [address], [place] [address] Jul, [facility] [address] [id number] [address] [place] [address], [place] [address] Jul, [facility] [address] [id number] [address] [place] [address], [place] [address] Jul, [facility] [address] [id number] [address] [place] [id number] Jul, [facility] [address] [id number] [address] [place] [address], [place] [address] Jul, [facility] [address] [id number] [address] [place] [id number] Jul, [facility] [address] [id number] [address] [place] [id number] Jul, [facility] [address] [id number] [address] [place] [id number] Jul, [facility] [address] [id number] [address] [place] [address], [place] [address] 18 Jul, 2012 [facility] [address] [id number] [address] [place] [id number] Jul, [facility] [address] [id number] [address] [place] [id number] Jul, [facility] [address] [id number] [address] [place] [address], [place] [address] 17 Jul, 2012 [facility] [address] [id number] [address] [place] [address], [place] [address] 17 Jul, 2012 [facility] [address] [id number] [address] [place] [address], [place] [id number] 03 Jul, 2012 [facility] [address] [id number] [address] [place] [address], [place] [address] 02 Jul, 2012 [facility] [address] [id number] [address] [place] [address], [place] [address] 28 Jun, 2012 [facility] [address] [id number] [address] [place] [address], [place] [address] 24 Jun, 2012 [facility] [address] [id number] [address] [place] [address], [place] [address] 19 Jun, 2012 [facility] [address] [id number] [address] [place] [address], [place] [address] May, [facility] [address] [id number] [address] [place] [address], [place] [address] May, [facility] [address] [id number] [address] [place] [address], [place] [address] Mar, [facility] [address] [id number] [address] [place] [address], [place] [address] Mar, [facility] [address] [id number] [address] [place] [address], [place] [address] February, [facility] [address] [id number] [address] [place] [address], [place] [address] February, [facility] [address] [id number] [address] [place] [address], [place] [address] Nov, [facility] [address] [id number] [address] [place] [address], [place] [address] Oct, [facility] [address] [id number] [address] [place] [address], [place] [address] Oct, [facility] [address] [id number] [address] [place] [address], [place] [address] Oct, [facility] [address] [id number] [address] [place] [address], [place] [address] Aug, [facility] [address] [id number] [address] [place] [address], [place] [address] Jul, [facility] [address] [id number] [address] [place] [address], [place] [address] Sep, [facility] [address] [id number] [address] [place] [address], [place] [address] Aug, [facility] [address] [id number] [address] [place] [address], [place] [address] Jul, [facility] [address] [id number] [address] [place] [address], [place] [address] Apr, [facility] [address] [id number] [address] [place] [address], [place] [address] February, [facility] [address] [id number] [address] [place] [address], [place] [address] Sep, [facility] [address] [id number] [address] [place] [address], [place] [address] Sep, [facility] [address] [id number] [address] [place] [address], [place] [address] Sep, [facility] [address] [id number] [address] [place] [address], [place] [address] 15 Apr, 2009 [facility] [address] [id number] [address] [place] [address], [place] [address] Mar, [facility] [address] [id number] [address] [place] [address], [place] [address] February, [facility] [address] [id number] [address] [place] [address], [place] [address] 15 Jan, [address] [facility] [address] [id number] [address] [place] [address], [place] [address] Jul, IMMUNIZATIONS No Known Immunizations SOCIAL HISTORY Never Assessed REASON FOR VISIT PLAN OF CARE VITAL SIGNS Height 63 in 2013-03-02 Weight 221.4 lbs 2013-03-02 Temperature 97.4 degrees Fahrenheit 2013-03-02 Heart Rate 84 bpm 2013-03-02 Respiratory Rate 22 bpm 2013-03-02 Blood pressure systolic 144 mmHg 2013-03-02 Blood pressure diastolic 90 mmHg 2013-03-02 MEDICATIONS Unknown Medications RESULTS No Results PROCEDURES No Known procedures INSTRUCTIONS MEDICATIONS ADMINISTERED No Known Medications MEDICAL (GENERAL) HISTORY Type Description Date Medical History 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
--- OUTSIDE RECORDS SUMMARY | 2020-05-26 16:30 | XMS REPORT ---
Author Author Michelle LANGE Organization [facility] Address [address] [place] [address] Care Team Providers Care Fowl Blood Tester Name Role Phone TRACEE LANGE Unavailable PROBLEMS Type Condition ICD9-CM Code [id number] Code Onset Dates Condition S tatus SNOMED Code Problem Lumbar neuritis M54.16 Active 1281 57745 Problem Thoracic neuritis M54.14 Active 58 406009 Problem Hypertension, benign I10 Active 94159765 Problem Cardiomyopathy I42.9 Active 47216 001 Problem Epileptic seizure, generalized G40.309 Active 41572552 Problem Excessive daytime sleepiness G47.19 A ctive [id number] Problem GERD (gastroesophageal reflux disease) K21.9 Active 550863265 Problem Panlobular emphysema J43.1 Active 8418007 Problem Intracranial injury, without loss of consciousness, subsequent encounter S06.9X0D Active 375154652 Problem Ventricular arrhythmia I49.9 Active 50199217 Problem Mood disorder F39 Active 733276 05 Problem Seasonal allergic rhinitis, unspecified trigger J3 0.2 Active 684693437 Problem Observed sleep apnea G47.30 Active 79470024 ALLERGIES No Information ENCOUNTERS Encounter Location Date Diagnosis [place] [address] [facility] [id number] [address] [place] [address] Apr, Epileptic seizure, generaliz ed G40.309 and Lumbar neuritis M54.16 [facility] [address] [facility] [id number] [address] [place] [address] Apr, [facility] [address] [place] [id number] [address] [place] [address] Apr, [facility] [address] [facility] [id number] [address] [place] [address] Mar, GERD (gastroesophageal reflu x disease) K21.9 [facility] [address] [id number] [address] [place] [address] Mar, [facility] [address] [id number] [address] [place] [address] Mar, [facility] [address] [id number] [address] [place] [address] Mar, [facility] [address] [facility] [id number] [address] [place] [address] Mar, [facility] [address] [id number] [address] [place] [address] Mar, [facility] [address] [facility] [id number] [address] [place] [address] Mar, [facility] [address] [facility] [id number] [address] [place] [address] February, Epileptic seizure, generaliz ed G40.309 and Hypertension, benign I10 [facility] [address] [facility] [id number] [address] [place] [address] February, Epileptic seizure, generaliz ed G40.309 [facility] [address] [facility] [id number] [address] [place] [address] February, [facility] [address] [facility] [id number] [address] [place] [address] Jan, [facility] [address] [facility] [id number] [address] [place] [address] Jan, [facility] [address] [facility] [id number] [address] [place] [address] Jan, [facility] [address] [facility] [id number] [address] [place] [address] Jan, Panlobular emphysema J43.1 [facility] [address] [facility] [id number] [address] [place] [address] Dec, Mood disorder F39 [facility] [address] [facility] [id number] [address] [place] [address] Nov, [facility] [address] [facility] [id number] [address] [place] [address] Oct, Cardiomyopathy I42.9 ; Hyper tension, benign I10 and Mood disorder F39 [facility] [address] [facility] [id number] [address] [place] [address] Oct, Epileptic seizure, generaliz ed G40.309 [facility] [address] [facility] [id number] [address] [place] [address] Oct, Panlobular emphysema J43.1 [facility] [address] [facility] [id number] [address] [place] [address] Oct, [facility] [address] [facility] [id number] [address] [place] [address] Oct, Panlobular emphysema J43.1 [facility] [address] [facility] [id number] [address] [place] [address] Sep, Unspecified convulsions R56. 9 [facility] [address] [facility] [id number] [address] [place] [address] Aug, Seizures R56.9 [facility] [address] [facility] [id number] [address] [place] [address] Aug, [facility] [address] [facility] [id number] [address] [place] [address] Aug, Hypertension, benign I10 [facility] [address] [facility] [id number] [address] [place] [address] Aug, [facility] [address] [facility] [id number] [address] [place] [address] Aug, [facility] [address] [facility] [id number] [address] [place] [address] Aug, [facility] [address] [facility] [id number] [address] [place] [address] Aug, Panlobular emphysema J43.1 ; Observed sleep apnea G47.30 and Excessive daytime sleepiness G47.19 [facility] [address] [facility] [id number] [address] [place] [address] Aug, [facility] [address] [facility] [id number] [address] [place] [address] Jun, Seizures R56.9 [facility] [address] [facility] [id number] [address] [place] [address] Jun, [facility] [address] [facility] [id number] [address] [place] [address] Jun, [facility] [address] [facility] [id number] [address] [place] [address] Jun, [facility] [address] [facility] [id number] [address] [place] [address] May, Acute right-sided low back p ain without sciatica M54.5 [facility] [address] [facility] [id number] [address] [place] [address] May, Acute right-sided low back p ain without sciatica M54.5 [facility] [address] [facility] [id number] [address] [place] [address] Apr, High risk medication use Z79 .899 ; Acute septic pulmonary embolism without acute cor pulmonale I26.90 and Cellulitis of leg without foot L03.119 [facility] [address] [facility] [id number] [address] [place] [address] Jan, [facility] [address] [facility] [id number] [address] [place] [address] Jan, Seizures R56.9 [facility] [address] [facility] [id number] [address] [place] [address] Dec, Seizures R56.9 [facility] [address] [facility] [id number] [address] [place] [address] Nov, Dysuria R30.0 and Urinary tr act infection without hematuria, site unspecified N39.0 [facility] [address] [facility] [id number] [address] [place] [address] Nov, [facility] [address] [facility] [id number] [address] [place] [address] Nov, Seizures R56.9 [facility] [address] [facility] [id number] [address] [place] [address] Sep, Seizures R56.9 [facility] [address] [facility] [id number] [address] [place] [address] Sep, Seasonal allergic rhinitis, unspecified trigger J30.2 [facility] [address] [facility] [id number] [address] [place] [address] Aug, Neck pain on left side M54.2 ; Mood disorder F39 and GERD (gastroesophageal reflux disease) K21.9 [facility] [address] [facility] [id number] [address] [place] [address] Aug, Seizures R56.9 [facility] [address] [facility] [id number] [address] [place] [address] Aug, Mood disorder F39 ; Neck dionicio n on left side M54.2 and Hypertension, benign I10 [facility] [address] [facility] [id number] [address] [place] [address] Aug, [facility] [address] [facility] [id number] [address] [place] [address] Aug, [facility] [address] [facility] [id number] [address] [place] [address] Jul, [facility] [address] [facility] [id number] [address] [place] [address] Jul, Hypertension, benign I10 [facility] [address] [facility] [id number] [address] [place] [address] Jul, [facility] [address] [facility] [id number] [address] [place] [address] Jul, Thoracic neuritis M54.14 ; P ain of left leg M79.605 and Pain in right leg M79.604 [facility] [address] [id number] [address] [place] [address] Jun, Seizures R56.9 [facility] [address] [id number] [address] [place] [address] May, [facility] [address] [id number] [address] [place] [address] May, [facility] [address] [id number] [address] [place] [address] May, [facility] [address] [id number] [address] [place] [address] May, Seizures R56.9 [facility] [address] [id number] [address] [place] [address] May, [facility] [address] [facility] [id number] [address] [place] [address] May, Delirium R41.0 [facility] [address] [facility] [id number] [address] [place] [address] Apr, [facility] [address] [facility] [id number] [address] [place] [address] February, Ventricular arrhythmia I49.9 [facility] [address] [place] [id number] [address] [place] [address] February, [facility] [address] [facility] [id number] [address] [place] [address] Dec, Thoracic neuritis M54.14 ; L umbar neuritis M54.16 and Epileptic seizure, generalized G40.309 [facility] [address] [facility] [id number] [address] [place] [address] Sep, Epileptic seizure, generaliz ed G40.309 and Lumbar neuritis M54.16 [facility] [address] [place] [id number] [address] [place] [address] Aug, Thoracic neuritis M54.14 and Lumbar neuritis M54.16 [place] [address] [address] Jun, [place] [address] [address] Jun, Abscess of leg, left L02.416 [place] [address] [address] May, Lumbar neuritis M54.16 ; Tho racic neuritis M54.14 ; Intracranial injury, without loss of consciousness, subsequent encounter S06.9X0D and Cardiomyopathy I42.9 [place] [address] [address] Apr, Lumbar neuritis M54.16 [place] [address] [address] Apr, [place] [address] [address] Apr, Elevated liver enzymes R74.8 and Renal insufficiency N28.9 [place] [address] [address] Apr, Lumbar neuritis M54.16 ; Tho racic neuritis M54.14 ; Hypertension, benign I10 ; Cardiomyopathy I42.9 and Epileptic seizure, generalized G40.309 [place] [address] [address] Mar, [place] [address] [address] February, [place] [address] [address] February, Lumbar neuritis M54.16 ; Tho racic neuritis M54.14 ; Hypertension, benign I10 ; Cardiomyopathy I42.9 and Epileptic seizure, generalized G40.309 [place] [address] [address] Dec, [facility] [address] [address] Sep, Epigastric mass R19.06 [facility] [address] [address] Sep, Epigastric mass R19.06 [facility] [address] [address] Sep, [facility] [address] [address] Sep, Epigastric mass R19.06 [facility] [address] [address] Sep, Epigastric mass R19.06 and L roque mass R91.8 [facility] [address] [address] Jul, Shortness of breath R06.02 ; Dysuria R30.0 and Acute bronchitis, unspecified organism J20.9 [place] [address] [address] Jul, [place] [address] [address] 15 Jun, 2016 Seizures R56.9 ; Thoracic ne uritis M54.14 ; Lumbar neuritis M54.16 and GERD (gastroesophageal reflux disease) K21.9 [facility] [address] [address] Jan, [place] [address] [address] Sep, [place] [address] [address] 09 Sep, 2015 Intracranial injury, without loss of consciousness, subsequent encounter S06.9X0D ; Cardiomyopathy I42.9 ; GERD (gastroesophageal reflux disease) K21.9 ; Hypertension, benign I10 ; Thoracic neuritis M54.14 and Lumbar neuritis M54.16 [facility] [address] [address] Mar, [facility] [address] [place] [id number] [place] [address] Mar, Coronary atherosclerosis of unspecified type of vessel, paimiut or graft 414.00 ; Unspecified essential hypertension 401.9 ; Thoracic or lumbosacral neuritis or radiculitis, unspecified 724.4 and Other convulsions 780.39 [facility] [address] [address] Jan, [facility] [address] [place] [id number] [place] [address] Jan, [facility] [address] [address] Nov, [facility] [address] [place] [id number] [address] [place] [address] Nov, [facility] [address] [address] Nov, [facility] [address] [address] Nov, [facility] [address] [address] Nov, [facility] [address] [place] [id number] [address] [place] [address] Nov, [facility] [address] [address] Nov, [facility] [address] [facility] [id number] [address] [place] [address] Nov, [facility] [address] [place] [id number] [place] [address] Nov, [facility] [address] [id number] [address] [place] [address], [place] [address] Nov, [facility] [address] [id number] [address] [place] [address], [place] [address] Sep, [facility] [address] [id number] [address] [place] [address], [place] [address] Sep, [facility] [address] [id number] [address] [place] [address], [place] [address] Aug, [facility] [address] [id number] [address] [place] [address], [place] [address] Aug, [facility] [address] [id number] [address] [place] [address], [place] [address] Aug, [facility] [address] [id number] [address] [place] [address], [place] [address] Aug, [facility] [address] [id number] [address] [place] [address], [place] [address] Jul, [facility] [address] [id number] [address] [place] [address], [place] [address] Jul, [facility] [address] [id number] [address] [place] [address], [place] [address] Jul, [facility] [address] [id number] [address] [place] [address], [place] [address] Jul, [facility] [address] [id number] [address] [place] [address], [place] [address] Jun, [facility] [address] [id number] [address] [place] [address], [place] [address] Jun, [facility] [address] [id number] [address] [place] [address], [place] [address] Jun, [facility] [address] [id number] [address] [place] [address], [place] [address] May, [facility] [address] [id number] [address] [place] [address], [place] [address] May, [facility] [address] [id number] [address] [place] [address], [place] [address] May, [facility] [address] [id number] [address] [place] [address], [place] [address] May, [facility] [address] [id number] [address] [place] [address], [place] [address] May, [facility] [address] [id number] [address] [place] [address], [place] [address] May, [facility] [address] [id number] [address] [place] [address], [place] [address] May, [facility] [address] [id number] [address] [place] [address], [place] [address] May, [facility] [address] [id number] [address] [place] [address], [place] [address] February, [facility] [address] [id number] [address] [place] [address], [place] [address] February, [facility] [address] [id number] [address] [place] [address], [place] [address] Jan, [facility] [address] [id number] [address] [place] [address], [place] [address] Jan, [facility] [address] [id number] [address] [place] [address], [place] [address] Jan, [facility] [address] [id number] [address] [place] [address], [place] [address] Jan, [facility] [address] [id number] [address] [place] [address], [place] [address] Nov, [facility] [address] [id number] [address] [place] [address], [place] [address] Nov, [facility] [address] [id number] [address] [place] [address], [place] [address] Nov, [facility] [address] [id number] [address] [place] [address], [place] [address] Nov, [facility] [address] [id number] [address] [place] [address], [place] [address] Sep, [facility] [address] [id number] [address] [place] [address], [place] [address] Sep, [facility] [address] [id number] [address] [place] [address], [place] [address] Sep, [facility] [address] [id number] [address] [place] [address], [place] [address] Sep, [facility] [address] [id number] [address] [place] [address], [place] [address] Sep, [facility] [address] [id number] [address] [place] [address], [place] [address] Sep, [facility] [address] [id number] [address] [place] [address], [place] [address] Jul, [facility] [address] [id number] [address] [place] [address], [place] [address] Jul, [facility] [address] [id number] [address] [place] [address] 30 Jun, 2013 [facility] [address] [id number] [address] [place] [address], [place] [address] Jun, [facility] [address] [id number] [address] [place] [address], [place] [address] 17 Jun, 2013 [facility] [address] [id number] [address] [place] [address], [place] [address] May, [facility] [address] [place] [id number] May, [facility] [address] [id number] [address] [place] [address] May, [facility] [address] [id number] [address] [place] [address] May, [facility] [address] [id number] [facility] [place] [address] May, [facility] [address] [id number] [address] [place] [address], [place] [address] May, [facility] [address] [id number] [address] [place] [address], [place] [address] May, [facility] [address] [id number] [address] [place] [address], [place] [address] Apr, [facility] [address] [id number] [address] [place] [address], [place] [address] Apr, [facility] [address] [id number] [address] [place] [address], [place] [address] Apr, [facility] [address] [id number] [address] [place] [address], [place] [address] Apr, [facility] [address] [id number] [address] [place] [address], [place] [address] Mar, [facility] [address] [id number] [address] [place] [address], [place] [address] February, [facility] [address] [id number] [address] [place] [address], [place] [address] Jan, [facility] [address] [id number] [address] [place] [address], [place] [address] Dec, [facility] [address] [id number] [address] [place] [address], [place] [address] Dec, [facility] [address] [id number] [address] [place] [address], [place] [address] Dec, [facility] [address] [id number] [address] [place] [address], [place] [address] Nov, [facility] [address] [id number] [address] [place] [address], [place] [address] Nov, [facility] [address] [id number] [address] [place] [address], [place] [address] Nov, [facility] [address] [id number] [address] [place] [address], [place] [address] Oct, [facility] [address] [id number] [address] [place] [address], [place] [address] Oct, [facility] [address] [id number] [address] [place] [address], [place] [address] Sep, [facility] [address] [id number] [address] [place] [address], [place] [address] Sep, [facility] [address] [id number] [address] [place] [address], [place] [address] Sep, [facility] [address] [id number] [address] [place] [address], [place] [address] Sep, [facility] [address] [id number] [address] [place] [address], [place] [address] Sep, [facility] [address] [id number] [address] [place] [address], [place] [address] Sep, [facility] [address] [id number] [address] [place] [address], [place] [address] Aug, [facility] [address] [id number] [address] [place] [address], [place] [address] Aug, [facility] [address] [id number] [address] [place] [address], [place] [address] Aug, [facility] [address] [id number] [address] [place] [address], [place] [address] Aug, [facility] [address] [id number] [address] [place] [address], [place] [address] Aug, [facility] [address] [id number] [address] [place] [address], [place] [address] Aug, [facility] [address] [id number] [address] [place] [address], [place] [address] Aug, [facility] [address] [id number] [address] [place] [address], [place] [address] Aug, [facility] [address] [id number] [address] [place] [address], [place] [address] Aug, [facility] [address] [id number] [address] [place] [address], [place] [address] Aug, [facility] [address] [id number] [address] [place] [address], [place] [address] Jul, [facility] [address] [id number] [address] [place] [address], [place] [address] Jul, [facility] [address] [id number] [address] [place] [address], [place] [address] Jul, [facility] [address] [id number] [address] [place] [address], [place] [address] Jul, [facility] [address] [id number] [address] [place] [phone] Jul, [facility] [address] [id number] [address] [place] [address], [place] [address] Jul, [facility] [address] [id number] [address] [place] [id number] Jul, [facility] [address] [id number] [address] [place] [phone] Jul, [facility] [address] [id number] [address] [place] [id number] 18 Jul, 2012 [facility] [address] [id number] [address] [place] [address], [place] [address] Jul, [facility] [address] [id number] [address] [place] [id number] Jul, [facility] [address] [id number] [address] [place] [phone] Jul, [facility] [address] [id number] [address] [place] [address], [place] [address] 17 Jul, 2012 [facility] [address] [id number] [address] [place] [address], [place] [address] Jul, [facility] [address] [id number] [address] [place] [address], [place] [address] Jul, [facility] [address] [id number] [address] [place] [address], [place] [address] 28 Jun, 2012 [facility] [address] [id number] [address] [place] [address], [place] [address] 24 Jun, 2012 [facility] [address] [id number] [address] [place] [address], [place] [address] Jun, [facility] [address] [id number] [address] [place] [address], [place] [address] May, [facility] [address] [id number] [address] [place] [address], [place] [address] May, [facility] [address] [id number] [address] [place] [address], [place] [address] Mar, [facility] [address] [id number] [address] [place] [address], [place] [address] Mar, [facility] [address] [id number] [address] [place] [address], [place] [address] February, [facility] [address] [id number] [address] [place] [address], [place] [address] February, [facility] [address] [id number] [address] [place] [address], [place] [address] Nov, [facility] [address] [id number] [address] [place] [address], [place] [address] Oct, [facility] [address] [id number] [address] [place] [address], [place] [address] Oct, [facility] [address] [id number] [address] [place] [address], [place] [address] Oct, [facility] [address] [id number] [address] [place] [id number] Aug, [facility] [address] [id number] [address] [place] [phone] Jul, [facility] [address] [id number] [address] [place] [id number] Sep, [facility] [address] [id number] [address] [place] [phone] Aug, [facility] [address] [id number] [address] [place] [phone] Jul, [facility] [address] [id number] [address] [place] [phone] Apr, [facility] [address] [id number] [address] [place] [address] February, [facility] [address] [id number] [address] [place] [phone] Sep, [facility] [address] [id number] [address] [place] [phone] Sep, [facility] [address] [id number] [address] [place] [address] Sep, [facility] [address] [id number] [address] [place] [address] Apr, [facility] [address] [id number] [address] [place] [id number] Mar, [facility] [address] [id number] [address] [place] [id number] February, [facility] [address] [id number] [address] [place] [phone] Jan, [facility] [address] [id number] [address] [place] [address] Jul, IMMUNIZATIONS No Known Immunizations SOCIAL HISTORY Never Assessed REASON FOR VISIT PLAN OF CARE VITAL SIGNS MEDICATIONS No Known Medications RESULTS No Results PROCEDURES No Known procedures INSTRUCTIONS MEDICATIONS ADMINISTERED No Known Medications MEDICAL (GENERAL) HISTORY Type Description Date Medical History 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
--- OUTSIDE RECORDS SUMMARY | 2020-05-26 16:30 | XMS REPORT ---
Author Author Michelle LANGE Organization [facility] [place] Address [address] [place] [address] Care Team Providers Care Asp Net Programmer Name Role Phone TRACEE LANGE Unavailable PROBLEMS Type Condition ICD9-CM Code XSO17-MB Code Onset Dates Condition S tatus SNOMED Code Problem Lumbar neuritis M54.16 Active 1281 20568 Problem Thoracic neuritis M54.14 Active 58 662545 Problem Hypertension, benign I10 Active 07801409 Problem Cardiomyopathy I42.9 Active 13452 001 Problem Epileptic seizure, generalized G40.309 Active 33815946 Problem Excessive daytime sleepiness G47.19 A ctive [id number] Problem GERD (gastroesophageal reflux disease) K21.9 Active 492094263 Problem Panlobular emphysema J43.1 Active 8954412 Problem Intracranial injury, without loss of consciousness, subsequent encounter S06.9X0D Active 017270769 Problem Ventricular arrhythmia I49.9 Active 26616343 Problem Mood disorder F39 Active 010292 05 Problem Seasonal allergic rhinitis, unspecified trigger J3 0.2 Active 110023468 Problem Observed sleep apnea G47.30 Active 29619577 ALLERGIES No Information ENCOUNTERS Encounter Location Date Diagnosis [place] [address] [facility] [id number] [address] [place] [address] Apr, Epileptic seizure, generaliz ed G40.309 and Lumbar neuritis M54.16 [facility] [place] [address] [facility] [id number] [address] [place] [address] Apr, [facility] [place] [address] [facility] [id number] [address] [place] [address] Apr, [facility] [place] [address] [facility] [id number] [address] [place] [address] Mar, GERD (gastroesophageal reflu x disease) K21.9 [facility] [place] [address] [id number] [address] [place] [address] Mar, [facility] [place] [address] [id number] [address] [place] [address] Mar, [facility] [place] [address] [id number] [address] [place] [address] Mar, [facility] [place] [address] [facility] [id number] [address] [place] [address] Mar, [facility] [place] [address] [id number] [address] [place] [address] Mar, [facility] [place] [address] [facility] [id number] [address] [place] [address] Mar, [facility] [place] [address] [facility] [id number] [address] [place] [address] February, Epileptic seizure, generaliz ed G40.309 and Hypertension, benign I10 [facility] [place] [address] [facility] [id number] [address] [place] [address] February, Epileptic seizure, generaliz ed G40.309 [facility] [place] [address] [facility] [id number] [address] [place] [address] February, [facility] [place] [address] [facility] [id number] [address] [place] [address] Jan, [facility] [place] [address] [facility] [id number] [address] [place] [address] Jan, [facility] [place] [address] [facility] [id number] [address] [place] [address] Jan, [facility] [place] [address] [facility] [id number] [address] [place] [address] Jan, Panlobular emphysema J43.1 [facility] [place] [address] [facility] [id number] [address] [place] [address] Dec, Mood disorder F39 [facility] [place] [address] [facility] [id number] [address] [place] [address] Nov, [facility] [place] [address] [facility] [id number] [address] [place] [address] Oct, Cardiomyopathy I42.9 ; Hyper tension, benign I10 and Mood disorder F39 [facility] [place] [address] [facility] [id number] [address] [place] [address] Oct, Epileptic seizure, generaliz ed G40.309 [facility] [place] [address] [facility] [id number] [address] [place] [address] Oct, Panlobular emphysema J43.1 [facility] [place] [address] [facility] [id number] [address] [place] [address] Oct, [facility] [place] [address] [facility] [id number] [address] [place] [address] Oct, Panlobular emphysema J43.1 [facility] [place] [address] [facility] [id number] [address] [place] [address] Sep, Unspecified convulsions R56. 9 [facility] [place] [address] [facility] [id number] [address] [place] [address] Aug, Seizures R56.9 [facility] [place] [address] [facility] [id number] [address] [place] [address] Aug, [facility] [place] [address] [facility] [id number] [address] [place] [address] Aug, Hypertension, benign I10 [facility] [place] [address] [facility] [id number] [address] [place] [address] Aug, [facility] [place] [address] [facility] [id number] [address] [place] [address] Aug, [facility] [place] [address] [facility] [id number] [address] [place] [address] Aug, [facility] [place] [address] [facility] [id number] [address] [place] [address] Aug, Panlobular emphysema J43.1 ; Observed sleep apnea G47.30 and Excessive daytime sleepiness G47.19 [facility] [place] [address] [facility] [id number] [address] [place] [address] Aug, [facility] [place] [address] [facility] [id number] [address] [place] [address] Jun, Seizures R56.9 [facility] [place] [address] [facility] [id number] [address] [place] [address] Jun, [facility] [place] [address] [facility] [id number] [address] [place] [address] Jun, [facility] [place] [address] [facility] [id number] [address] [place] [address] Jun, [facility] [place] [address] [facility] [id number] [address] [place] [address] May, Acute right-sided low back p ain without sciatica M54.5 [facility] [place] [address] [facility] [id number] [address] [place] [address] May, Acute right-sided low back p ain without sciatica M54.5 [facility] [place] [address] [facility] [id number] [address] [place] [address] Apr, High risk medication use Z79 .899 ; Acute septic pulmonary embolism without acute cor pulmonale I26.90 and Cellulitis of leg without foot L03.119 [facility] [place] [address] [facility] [id number] [address] [place] [address] Jan, [facility] [place] [address] [facility] [id number] [address] [place] [address] Jan, Seizures R56.9 [facility] [place] [address] [facility] [id number] [address] [place] [address] Dec, Seizures R56.9 [facility] [address] [facility] [id number] [address] [place] [address] Nov, Dysuria R30.0 and Urinary tr act infection without hematuria, site unspecified N39.0 [facility] [place] [address] [facility] [id number] [address] [place] [address] Nov, [facility] [place] [address] [facility] [id number] [address] [place] [address] Nov, Seizures R56.9 [facility] [place] [address] [facility] [id number] [address] [place] [address] Sep, Seizures R56.9 [facility] [place] [address] [facility] [id number] [address] [place] [address] Sep, Seasonal allergic rhinitis, unspecified trigger J30.2 [facility] [place] [address] [facility] [id number] [address] [place] [address] Aug, Neck pain on left side M54.2 ; Mood disorder F39 and GERD (gastroesophageal reflux disease) K21.9 [facility] [place] [address] [facility] [id number] [address] [place] [address] Aug, Seizures R56.9 [facility] [place] [address] [facility] [id number] [address] [place] [address] Aug, Mood disorder F39 ; Neck dionicio n on left side M54.2 and Hypertension, benign I10 [facility] [place] [address] [facility] [id number] [address] [place] [address] Aug, [facility] [place] [address] [facility] [id number] [address] [place] [address] Aug, [facility] [place] [address] [facility] [id number] [address] [place] [address] Jul, [facility] [place] [address] [facility] [id number] [address] [place] [address] Jul, Hypertension, benign I10 [facility] [place] [address] [facility] [id number] [address] [place] [address] Jul, [facility] [place] [address] [facility] [id number] [address] [place] [address] Jul, Thoracic neuritis M54.14 ; P ain of left leg M79.605 and Pain in right leg M79.604 [facility] [place] [address] [id number] [address] [place] [address] Jun, Seizures R56.9 [facility] [place] [address] [id number] [address] [place] [address] May, [facility] [place] [address] [id number] [address] [place] [address] May, [facility] [place] [address] [id number] [address] [place] [address] May, [facility] [place] [address] [id number] [address] [place] [address] May, Seizures R56.9 [facility] [place] [address] [id number] [address] [place] [address] May, [facility] [place] [address] [facility] [id number] [address] [place] [address] May, Delirium R41.0 [facility] [place] [address] [facility] [id number] [address] [place] [address] Apr, [facility] [place] [address] [facility] [id number] [address] [place] [address] February, Ventricular arrhythmia I49.9 [facility] [place] [address] [place] [id number] [address] [place] [address] February, [facility] [place] [address] [facility] [id number] [address] [place] [address] Dec, Thoracic neuritis M54.14 ; L umbar neuritis M54.16 and Epileptic seizure, generalized G40.309 [facility] [place] [address] [facility] [id number] [address] [place] [address] Sep, Epileptic seizure, generaliz ed G40.309 and Lumbar neuritis M54.16 [facility] [place] [address] [place] [id number] [address] [place] [address] Aug, Thoracic neuritis M54.14 and Lumbar neuritis M54.16 [place] [address] [address] Jun, [place] [address] [address] Jun, Abscess of leg, left L02.416 [place] [address] [address] May, Lumbar neuritis M54.16 ; Tho racic neuritis M54.14 ; Intracranial injury, without loss of consciousness, subsequent encounter S06.9X0D and Cardiomyopathy I42.9 [place] [address] [address] Apr, Lumbar neuritis M54.16 [place] [address] [address] Apr, [place] [address] [address] Apr, Elevated liver enzymes R74.8 and Renal insufficiency N28.9 [place] [address] [address] Apr, Lumbar neuritis M54.16 ; Tho racic neuritis M54.14 ; Hypertension, benign I10 ; Cardiomyopathy I42.9 and Epileptic seizure, generalized G40.309 [place] [address] [address] Mar, [place] [address] [address] February, [place] [address] [address] February, Lumbar neuritis M54.16 ; Tho racic neuritis M54.14 ; Hypertension, benign I10 ; Cardiomyopathy I42.9 and Epileptic seizure, generalized G40.309 [place] [address] [address] Dec, [facility] [place] [address] [address] Sep, Epigastric mass R19.06 [facility] [place] [address] [address] Sep, Epigastric mass R19.06 [facility] [place] [address] [address] Sep, [facility] [place] [address] [address] Sep, Epigastric mass R19.06 [facility] [place] [address] [address] Sep, Epigastric mass R19.06 and L roque mass R91.8 [facility] [address] [address] Jul, Shortness of breath R06.02 ; Dysuria R30.0 and Acute bronchitis, unspecified organism J20.9 [place] [address] [address] Jul, [place] [address] [address] 15 Jun, 2016 Seizures R56.9 ; Thoracic ne uritis M54.14 ; Lumbar neuritis M54.16 and GERD (gastroesophageal reflux disease) K21.9 [facility] [address] [address] Jan, [place] [address] [address] Sep, [place] [address] [address] 09 Sep, 2015 Intracranial injury, without loss of consciousness, subsequent encounter S06.9X0D ; Cardiomyopathy I42.9 ; GERD (gastroesophageal reflux disease) K21.9 ; Hypertension, benign I10 ; Thoracic neuritis M54.14 and Lumbar neuritis M54.16 [facility] [place] [address] [address] Mar, [facility] [place] [address] [place] [id number] [place] [address] Mar, Coronary atherosclerosis of unspecified type of vessel, [place] or graft 414.00 ; Unspecified essential hypertension 401.9 ; Thoracic or lumbosacral neuritis or radiculitis, unspecified 724.4 and Other convulsions 780.39 [facility] [place] [address] [address] Jan, [facility] [place] [address] [place] [id number] [place] [address] Jan, [facility] [place] [address] [address] Nov, [facility] [place] [address] [place] [id number] [address] [place] [address] Nov, [facility] [place] [address] [address] Nov, [facility] [place] [address] [address] Nov, [facility] [place] [address] [address] Nov, [facility] [place] [address] [place] [id number] [address] [place] [address] Nov, [facility] [place] [address] [address] Nov, [facility] [place] [address] [facility] [id number] [address] [place] [address] Nov, [facility] [place] [address] [place] [id number] [place] [address] Nov, [facility] [address] [id number] [address] [place] [address], [place] [address] Nov, [facility] [address] [id number] [address] [place] [address], [place] [address] Sep, [facility] [address] [id number] [address] [place] [address], [place] [address] Sep, [facility] [address] [id number] [address] [place] [address], [place] [address] Aug, [facility] [address] [id number] [address] [place] [address], [place] [address] Aug, [facility] [address] [id number] [address] [place] [address], [place] [address] Aug, [facility] [address] [id number] [address] [place] [address], [place] [address] Aug, [facility] [address] [id number] [address] [place] [address], [place] [address] Jul, [facility] [address] [id number] [address] [place] [address], [place] [address] Jul, [facility] [address] [id number] [address] [place] [address], [place] [address] Jul, [facility] [address] [id number] [address] [place] [address], [place] [address] Jul, [facility] [address] [id number] [address] [place] [address], [place] [address] Jun, [facility] [address] [id number] [address] [place] [address], [place] [address] Jun, [facility] [address] [id number] [address] [place] [address], [place] [address] Jun, [facility] [address] [id number] [address] [place] [address], [place] [address] May, [facility] [address] [id number] [address] [place] [address], [place] [address] May, [facility] [address] [id number] [address] [place] [address], [place] [address] May, [facility] [address] [id number] [address] [place] [address], [place] [address] May, [facility] [address] [id number] [address] [place] [address], [place] [address] May, [facility] [address] [id number] [address] [place] [address], [place] [address] May, [facility] [address] [id number] [address] [place] [address], [place] [address] May, [facility] [address] [id number] [address] [place] [address], [place] [address] May, [facility] [address] [id number] [address] [place] [address], [place] [address] February, [facility] [address] [id number] [address] [place] [address], [place] [address] February, [facility] [address] [id number] [address] [place] [address], [place] [address] Jan, [facility] [address] [id number] [address] [place] [address], [place] [address] Jan, [facility] [address] [id number] [address] [place] [address], [place] [address] Jan, [facility] [address] [id number] [address] [place] [address], [place] [address] Jan, [facility] [address] [id number] [address] [place] [address], [place] [address] Nov, [facility] [address] [id number] [address] [place] [address], [place] [address] Nov, [facility] [address] [id number] [address] [place] [address], [place] [address] Nov, [facility] [address] [id number] [address] [place] [address], [place] [address] Nov, [facility] [address] [id number] [address] [place] [address], [place] [address] Sep, [facility] [address] [id number] [address] [place] [address], [place] [address] Sep, [facility] [address] [id number] [address] [place] [address], [place] [address] Sep, [facility] [address] [id number] [address] [place] [address], [place] [address] Sep, [facility] [address] [id number] [address] [place] [address], [place] [address] Sep, [facility] [address] [id number] [address] [place] [address], [place] [address] Sep, [facility] [address] [id number] [address] [place] [address], [place] [address] Jul, [facility] [address] [id number] [address] [place] [address], [place] [address] Jul, [facility] [address] [id number] [address] [place] [address] 30 Jun, 2013 [facility] [address] [id number] [address] [place] [address], [place] [address] Jun, [facility] [address] [id number] [address] [place] [address], [place] [address] 17 Jun, 2013 [facility] [address] [id number] [address] [place] [address], [place] [address] May, [facility] [address] [place] [id number] May, [facility] [address] [id number] [address] [place] [address] May, [facility] [address] [id number] [address] [place] [address] May, [facility] [address] [id number] [address] [address] May, [facility] [address] [id number] [address] [place] [address], [place] [address] May, [facility] [address] [id number] [address] [place] [address], [place] [address] May, [facility] [address] [id number] [address] [place] [address], [place] [address] Apr, [facility] [address] [id number] [address] [place] [address], [place] [address] Apr, [facility] [address] [id number] [address] [place] [address], [place] [address] Apr, [facility] [address] [id number] [address] [place] [address], [place] [address] Apr, [facility] [address] [id number] [address] [place] [address], [place] [address] Mar, [facility] [address] [id number] [address] [place] [address], [place] [address] February, [facility] [address] [id number] [address] [place] [address], [place] [address] Jan, [facility] [address] [id number] [address] [place] [address], [place] [address] Dec, [facility] [address] [id number] [address] [place] [address], [place] [address] Dec, [facility] [address] [id number] [address] [place] [address], [place] [address] Dec, [facility] [address] [id number] [address] [place] [address], [place] [address] Nov, [facility] [address] [id number] [address] [place] [address], [place] [address] Nov, [facility] [address] [id number] [address] [place] [address], [place] [address] Nov, [facility] [address] [id number] [address] [place] [address], [place] [address] Oct, [facility] [address] [id number] [address] [place] [address], [place] [address] Oct, [facility] [address] [id number] [address] [place] [address], [place] [address] Sep, [facility] [address] [id number] [address] [place] [address], [place] [address] Sep, [facility] [address] [id number] [address] [place] [address], [place] [address] Sep, [facility] [address] [id number] [address] [place] [address], [place] [address] Sep, [facility] [address] [id number] [address] [place] [address], [place] [address] Sep, [facility] [address] [id number] [address] [place] [address], [place] [address] Sep, [facility] [address] [id number] [address] [place] [address], [place] [address] Aug, [facility] [address] [id number] [address] [place] [address], [place] [address] Aug, [facility] [address] [id number] [address] [place] [address], [place] [address] Aug, [facility] [address] [id number] [address] [place] [address], [place] [address] Aug, [facility] [address] [id number] [address] [place] [address], [place] [address] Aug, [facility] [address] [id number] [address] [place] [address], [place] [address] Aug, [facility] [address] [id number] [address] [place] [address], [place] [address] Aug, [facility] [address] [id number] [address] [place] [address], [place] [address] Aug, [facility] [address] [id number] [address] [place] [address], [place] [address] Aug, [facility] [address] [id number] [address] [place] [address], [place] [address] Aug, [facility] [address] [id number] [address] [place] [address], [place] [address] Jul, [facility] [address] [id number] [address] [place] [address], [place] [address] Jul, [facility] [address] [id number] [address] [place] [address], [place] [address] Jul, [facility] [address] [id number] [address] [place] [address], [place] [address] Jul, [facility] [address] [id number] [address] [place] [address] Jul, [facility] [address] [id number] [address] [place] [address], [place] [address] Jul, [facility] [address] [id number] [address] [place] [address] Jul, [facility] [address] [id number] [address] [place] [address] Jul, [facility] [address] [id number] [address] [place] [address] 18 Jul, 2012 [facility] [address] [id number] [address] [place] [address], [place] [address] Jul, [facility] [address] [id number] [address] [place] [address] Jul, [facility] [address] [id number] [address] [place] [address] Jul, [facility] [address] [id number] [address] [place] [address], [place] [address] 17 Jul, 2012 [facility] [address] [id number] [address] [place] [address], [place] [address] Jul, [facility] [address] [id number] [address] [place] [address], [place] [address] Jul, [facility] [address] [id number] [address] [place] [address], [place] [address] 28 Jun, 2012 [facility] [address] [id number] [address] [place] [address], [place] [address] 24 Jun, 2012 [facility] [address] [id number] [address] [place] [address], [place] [address] Jun, [facility] [address] [id number] [address] [place] [address], [place] [address] May, [facility] [address] [id number] [address] [place] [address], [place] [address] May, [facility] [address] [id number] [address] [place] [address], [place] [address] Mar, [facility] [address] [id number] [address] [place] [address], [place] [address] Mar, [facility] [address] [id number] [address] [place] [address], [place] [address] February, [facility] [address] [id number] [address] [place] [address], [place] [address] February, [facility] [address] [id number] [address] [place] [address], [place] [address] Nov, [facility] [address] [id number] [address] [place] [address], [place] [address] Oct, [facility] [address] [id number] [address] [place] [address], [place] [address] Oct, [facility] [address] [id number] [address] [place] [address], [place] [address] Oct, [facility] [place] [address] [id number] [address] [place] [address] Aug, [facility] [place] [address] [id number] [address] [place] [address] Jul, [facility] [place] [address] [id number] [address] [place] [address] Sep, [facility] [place] [address] [id number] [address] [place] [address] Aug, [facility] [place] [address] [id number] [address] [place] [address] Jul, [facility] [place] [address] [id number] [address] [place] [address] Apr, [facility] [place] [address] [id number] [address] [place] [address] February, [facility] [place] [address] [id number] [address] [place] [address] Sep, [facility] [place] [address] [id number] [address] [place] [address] Sep, [facility] [place] [address] [id number] [address] [place] [address] Sep, [facility] [place] [address] [id number] [address] [place] [address] Apr, [facility] [place] [address] [id number] [address] [place] [address] Mar, [facility] [place] [address] [id number] [address] [place] [address] February, [facility] [place] [address] [id number] [address] [place] [address] Jan, [facility] [place] [address] [id number] [address] [place] [address] Jul, IMMUNIZATIONS No Known Immunizations SOCIAL HISTORY Never Assessed REASON FOR VISIT PLAN OF CARE VITAL SIGNS MEDICATIONS No Known Medications RESULTS No Results PROCEDURES No Known procedures INSTRUCTIONS MEDICATIONS ADMINISTERED No Known Medications MEDICAL (GENERAL) HISTORY Type Description Date Medical History 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
--- OUTSIDE RECORDS SUMMARY | 2020-05-26 16:42 | XMS REPORT | Continuity of Care Document ---
Demographics Preferred Language Unknown Marital Status Unknown Gnosticism Affiliation Unknown Race Unknown Ethnic Group Unknown Author Organization Unknown Address Unknown Phone Unavailable Allergies Active Description Code Type Severity Reaction Onset Reported/Identified Relationship to Patient Clinical Status Yes nitrous oxide [id number] [place] g Allergy Unknown N/A 06/08/2007 Yes AILEEN Inhibitors [id number] Dr ug Allergy Unknown N/A 05/25/2014 Yes No Allergy Information Available [id number] Drug Allergy Unknown N/A 020 Medications There [...] In The Right Upper Belly (ruq) 03/23/2009 TRAECE LANGE APRN 53 6.8 DYSPEPSIA 03/23/2009 TRACEE LANGE APRN 787.02 Nausea 03/23/2009 TRACEE LANGE APRN 789.01 Abdominal Pain In The Right Upper Belly (ruq) 03/23/2009 TRACEE LANGE APRN 53 6.8 DYSPEPSIA 03/23/2009 TRACEE LANGE APRN 787.02 Nausea 03/23/2009 TRACEE LAGNE APRN 789.01 Abdominal Pain In The Right [...] PRECIADO MD 462 Sore Throat 04/10/2011 KRANTHI RPECIADO MD 496 CHRONIC OBSTRUCTIVE PULMONARY DISEASE 04/12/2011 Ot 787.03 VOM ITING ALONE 07/02/2011 Ot 599.0 URIN TRACT INFECTION NOS 07/02/2011 Ot 789.09 ABD OMINAL PAIN, OTHER SPECIFIED SITE 07/17/2011 Ot 345.90 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 07/17/2011 Ot 496 CHR AI RWAY OBSTRUCT NEC 07/17/2011 Ot 530.81 ESO PHAGEAL REFLUX 07/17/2011 Ot 553.20 QUENTIN TRAL HERNIA NOS 07/17/2011 Ot 571.8 PAROLE AGENT MALIKA LIVER DIS NEC 07/17/2011 Ot 577.0 [...] 530.81 ESO PHAGEAL REFLUX 10/11/2011 Ot 585.9 PAROLE AGENT MALIKA KIDNEY DISEASE, UNSPECIFIED 10/11/2011 Ot 596.51 HYP ERTONICITY OF BLADDER 10/11/[address] PAIN NOS 10/11/2011 Ot V17.49 FAM EWA HISTORY OF OTHER CARDIOVASCULAR D 10/11/[address] ABSENCE OF GENITAL ORGANS 10/11/2011 Ot V45.89 POS TSURGICAL STATES NEC 10/11/2011 Ot V58.69 OTH MED,LT,CURRENT USE 10/23/2011 KRANTHI PRECIADO MD 401.9 ESSENTIAL HYPERTENSION 10/23/2011 KRNATHI PRECIADO MD 530.8 1 ESOPHAGEAL REFLUX 10/23/2011 401.9 ESSE NTIAL HYPERTENSION 10/23/2011 530.81 ESO PHAGEAL REFLUX 10/23/2011 401.9 ESSE NTIAL HYPERTENSION 10/23/2011 530.81 ESO PHAGEAL REFLUX 10/23/2011 TRACEE LANGE APRN 40 1.9 ESSENTIAL HYPERTENSION 10/23/2011 TRACEE LANGE APRN 530.81 ESOPHAGEAL REFLUX 10/23/2011 ANISA MUD ANALYSIS OPERATOR, TRACEE T 40 1.9 ESSENTIAL HYPERTENSION [...] APRN 787.01 NAUSEA WITH VOMITING 03/31/2012 TRACEE ALNGE APRN 68 2.9 Cellulitis And Abscess Of [...] 08/04/2012 Ot 414.01 COR ONARY ATHEROSCLEROSIS OF [place] CORON 08/04/2012 Ot 496 CHR AI RWAY [...] 12/20/2012 Ot 414.01 COR ONARY ATHEROSCLEROSIS OF [place] CORON 12/20/2012 Ot 486 PNEUMO ALEJA, ORGANISM [...] MD Ot 414. 01 CORONARY ATHEROSCLEROSIS OF [place] CORON 05/11/2013 NGOC CASTILLO MD Ot 425. [...] DEGROOT DO Ot 414.01 CORONARY ATHEROSCLEROSIS OF [place] CORON 06/24/2013 GAVI DEGROOT DO Ot 425.4 [...] Ot 785.0 TACHYCARDIA NOS 07/29/2013 BRI VILL[address]OR [employer]RE[address] LIGHT Ot 682.6 CELLULITIS OF LEG 09/14/2013 ABELARDO [...] MD Ot 414. 01 CORONARY ATHEROSCLEROSIS OF [place] CORON 09/14/2013 ABELARDO AMANDA MD Ot 425. [...] CHRONIC OBSTRUCTIVE ASTHMA, W (ACUTE) EX 04/08/2014 DEGROOT DO GAVI K Ot 518.84 ACUTE AND CHRONIC RESPIRATORY FAILURE 04/08/2014 MIKAYLA LANGE GAVI K Ot 530.81 ESOPHAGEAL REFLUX 04/08/2014 DEGROOT DO GAVI K Ot 585.9 CHRONIC KIDNEY DISEASE, UNSPECIFIED 04/08/2014 MIKAYLA LANGE GAVI K Ot V15.52 PERSONAL HISTORY OF TRAUMATIC BRAIN INJU 04/08/2014 DEGROOT DO GAVI Michael Ot V45.02 AUTO IMPLANTABLE CARDIAC DEFIBRILLATOR I 04/09/2014 NEERAJ VILLA MUD ANALYSIS OPERATOR Ot 486 PNEUMONIA, ORGANISM NOS 04/09/2014 NEERAJ VILLA MUD ANALYSIS OPERATOR Ot 511 .9 PLEURAL EFFUSION NOS [...] 518.84 ACUTE AND CHRONIC RESPIRATORY FAILURE 05/25/2014 MATHTEW DAVID MD Ot 585 .9 CHRONIC KIDNEY [...] 08/05/2016 KAILA HOLA K Ot Z79.899 OTHER PRE CODER (CURRENT) DRUG THERAPY 08/05/2016 KAILA , HOLA [...] MD Ot I25.10 ATHSCL HEART DISEASE OF [place] CORONARY 11/23/2016 QUIN JONES MD Ot J44.9 CHRONIC OBSTRUCTIVE PULMONARY DISEASE, U 11/23/2016 QUIN JONES MD Ot R05 COUGH 11/23/2016 QUIN JONES MD Ot Z79.899 OTHER RESIDENTIAL (CURRENT) DRUG THERAPY 11/26/2016 QUIN JONES MD Ot I25.10 ATHSCL HEART DISEASE OF [place] CORONARY 11/26/2016 QUIN JONES MD Ot J44.9 CHRONIC OBSTRUCTIVE PULMONARY DISEASE, U 11/26/2016 QUIN JONES MD Ot R05 COUGH 11/26/2016 QUIN JONES MD, Ot Z79.899 OTHER RESIDENTIAL (CURRENT) DRUG THERAPY 12/26/2016 KAILA DO, HOLA [...] KAILA DO, HOLA K Ot Z79.899 OTHER RESIDENTIAL (CURRENT) DRUG THERAPY 12/26/2016 KAILA DO, HOLA [...] MD Ot I25.10 ATHSCL HEART DISEASE OF [place] CORONARY 03/06/2017 QUIN JONES MD, Ot J44.9 CHRONIC OBSTRUCTIVE PULMONARY DISEASE, U 03/06/2017 QUIN JONES MD Ot K59.00 CONSTIPATION, UNSPECIFIED 03/06/2017 QUIN JONES MD Ot R10.30 LOWER ABDOMINAL PAIN, UNSPECIFIED 03/06/2017 QUIN JONES MD Ot Z79.899 OTHER PRE CODER (CURRENT) DRUG THERAPY 03/06/2017 ABELARDO AMANDA MD Ot 397. 0 TRICUSPID VALVE DISEASE 03/06/2017 ABELARDO AMANDA MD Ot 424. 0 MITRAL VALVE DISORDER 03/06/2017 ABELARDO AMANDA MD Ot 428. 0 CONGESTIVE HEART FAILURE NOS 03/06/2017 ABELARDO AMANDA MD Ot 428. 0 CONGESTIVE HEART FAILURE NOS 03/07/2017 QUIN JONES MD Ot I16.0 HYPERTENSIVE URGENCY 03/07/2017 QUIN JONES MD Ot I25.10 ATHSCL HEART DISEASE OF [place] CORONARY 03/07/2017 QUIN JONES MD Ot J44.9 CHRONIC OBSTRUCTIVE PULMONARY DISEASE, U 03/07/2017 QUIN JONES MD, Ot K59.00 CONSTIPATION, UNSPECIFIED 03/07/2017 QUIN JONES MD Ot R10.30 LOWER ABDOMINAL PAIN, UNSPECIFIED 03/07/2017 QUIN JONES MD Ot Z79.899 OTHER RESIDENTIAL (CURRENT) DRUG THERAPY 06/18/2017 ABELARDO AMANDA MD [...] ORTIZ Ot I25.10 ATHSCL HEART DISEASE OF [place] CORONARY 06/18/2017 STAR ORTIZ Ot I25.2 OLD [...] Ot I25. 10 ATHSCL HEART DISEASE OF [place] CORONARY 02/04/2018 MICHAEL BURRELL MD Ot I25. [...] 02/04/2018 MICHAEL BURRELL MD Ot Z79. 51 RESIDENTIAL (CURRENT) USE OF INHALED STERO 02/04/2018 MICHAEL BURRELL MD Ot Z79. 52 RESIDENTIAL (CURRENT) USE OF SYSTEMIC STER 02/04/2018 MICHAEL [...] MD Ot Z88. 8 ALLERGY STATUS TO [facility] DRUG/MEDS/BIOL SUB 02/04/2018 MICHAEL BURRELL MD [...] Ot I25. 10 ATHSCL HEART DISEASE OF [place] CORONARY 02/05/2018 MICHAEL BURRELL MD Ot I25. [...] 02/05/2018 MICHAEL BURRELL MD, Ot Z79. 51 RESIDENTIAL (CURRENT) USE OF INHALED STERO 02/05/2018 MICHAEL BURRELL MD, Ot Z79. 52 RESIDENTIAL (CURRENT) USE OF SYSTEMIC STER 02/05/2018 MICHAEL [...] MD Ot Z88. 8 ALLERGY STATUS TO [facility] DRUG/MEDS/BIOL SUB 02/05/2018 MICHAEL BURRELL MD [...] DO Ot I25.10 ATHSCL HEART DISEASE OF [place] CORONARY 02/24/2018 GAVI DEGROOT DO Ot I27.20 PULMONARY HYPERTENSION, UNSPECIFIED 02/24/2018 GAVI DEGROOT DO Ot I34.0 NONRHEUMATIC MITRAL (VALVE) INSUFFICIENC 02/24/2018 GAVI DEGROOT DO Ot I42.0 DILATED CARDIOMYOPATHY 02/24/2018 AGUSTÍN DEGROOT DOA K Ot I50.21 ACUTE SYSTOLIC (CONGESTIVE) HEART FAILUR 02/24/2018 GAVI DEGROOT DO Ot N18.9 CHRONIC KIDNEY DISEASE, UNSPECIFIED 02/24/2018 AGUSTÍN DEGROOT DOA K Ot Z79.89 9 OTHER RESIDENTIAL (CURRENT) DRUG THERAPY 02/24/2018 AGUSTÍN DEGROOT DOA Alec Ot G40.90 9 EPILEPSY, UNSP, NOT INTRACTABLE, WITHOUT 02/24/2018 MIKAYLA LANGE, GAVI K Ot G89.29 OTHER CHRONIC PAIN 02/24/2018 AGUSTÍN DEGROOT DOA K Ot I12.9 HYPERTENSIVE CHRONIC KIDNEY DISEASE W ST 02/24/2018 AGUSTÍN DEGROOT DOA K Ot I25.10 ATHSCL HEART DISEASE OF [place] CORONARY 02/24/2018 AGUSTÍN DEGROOT DOA K Ot I27.20 PULMONARY HYPERTENSION, UNSPECIFIED 02/24/2018 AGUSTÍN DEGROOT DOA K Ot I34.0 NONRHEUMATIC MITRAL (VALVE) INSUFFICIENC 02/24/2018 GAVI DEGROOT DO K Ot I42.0 DILATED CARDIOMYOPATHY 02/24/2018 AGUSTÍN DEGROOT DOA K Ot I50.21 ACUTE SYSTOLIC (CONGESTIVE) HEART FAILUR 02/24/2018 AGVI DEGROOT DO Ot N18.9 CHRONIC KIDNEY DISEASE, UNSPECIFIED 02/24/2018 GAVI DEGROOT DO K Ot Z79.89 9 OTHER PRE CODER (CURRENT) DRUG THERAPY 05/15/2018 Ot A41.9 SEPS [...] Ot I25.10 ATH SCL HEART DISEASE OF [place] CORONARY 05/15/2018 Ot I42.9 CARD IOMYOPATHY, UNSPECIFIED 05/15/2018 Ot 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 05/15/2018 Ot J43.9 EMPH YSEMA, UNSPECIFIED 05/15/2018 Ot K56.600 PA RTIAL INTESTINAL OBSTRUCTION, UNSPECIF 05/15/2018 Ot L03.115 CE LLULITIS OF RIGHT LOWER LIMB 05/15/2018 Ot L03.116 CE LLULITIS OF LEFT LOWER LIMB 05/15/2018 Ot N17.9 ACUT E KIDNEY FAILURE, UNSPECIFIED 05/15/2018 Ot N18.9 PAROLE AGENT MALIKA KIDNEY DISEASE, UNSPECIFIED 05/15/2018 Ot N39.0 [...] SMO 09/10/2018 NEERAJ VILLA APRN Ot Z79.51 RESIDENTIAL (CURRENT) USE OF INHALED STERO 09/10/2018 NEERAJ VILLA APRN Ot Z79.52 PRE CODER (CURRENT) USE OF SYSTEMIC STER 09/10/2018 NEERAJ [...] G40.909 EPILEPSY, UNSP, NOT INTRACTABLE, WITHOUT 09/14/2018 NEERJA VILLA APRN Ot I10 ESSENTIAL (PRIMARY) HYPERTENSION 09/14/2018 NEERAJ VILLA APRN, Ot J18 .9 PNEUMONIA, UNSPECIFIED ORGANISM 09/14/2018 NEERAJ VILLA APRN Ot J44 .9 CHRONIC OBSTRUCTIVE PULMONARY DISEASE, U 09/14/2018 NEERAJ VILLA APRN Ot R56 .9 UNSPECIFIED CONVULSIONS 09/14/2018 NEERAJ VILLA APRN Ot Z77.22 CNTCT W AND EXPSR TO ENVIRON TOBACCO SMO 09/14/2018 NEERAJ VILLA APRN Ot Z79.51 PRE CODER (CURRENT) USE OF INHALED STERO 09/14/2018 NEERAJ VILLA APRN Ot Z79.52 RESIDENTIAL (CURRENT) USE OF SYSTEMIC STER 09/14/2018 NEERAJ [...] APRN Ot Z88 .8 ALLERGY STATUS TO [facility] DRUG/MEDS/BIOL SUB 09/14/2018 NEERAJ VILLA APRN [...] SMO 09/29/2018 NEERAJ VILLA APRN Ot Z79.51 RESIDENTIAL (CURRENT) USE OF INHALED STERO 09/29/2018 NEERAJ VILLA APRN Ot Z79.52 RESIDENTIAL (CURRENT) USE OF SYSTEMIC STER 09/29/2018 NEERAJ [...] OBJE 05/04/2019 QUIN JONES MD Ot Z79.51 RESIDENTIAL (CURRENT) USE OF INHALED STERO 05/04/2019 QUIN [...] JONES MD, Ot Z88.8 ALLERGY STATUS TO [facility] DRUG/MEDS/BIOL SUB 05/04/2019 QUIN JONES MD, [...] OBJE 05/10/2019 QUIN JONES MD, Ot Z79.51 RESIDENTIAL (CURRENT) USE OF INHALED STERO 05/10/2019 QUIN [...] JONES MD Ot Z88.8 ALLERGY STATUS TO [facility] DRUG/MEDS/BIOL SUB 05/10/2019 QUIN JONES MD [...] RAJAN Ot I25.10 ATHSCL HEART DISEASE OF [place] CORONARY 07/10/2019 ARUNA LANGE RAJAN Ot I38 [...] Ot N18.9 CHRONIC KIDNEY DISEASE, UNSPECIFIED 08/17/2019 WKAKU GAONA MD Ot R26.8 1 UNSTEADINESS ON FEET 08/17/2019 KWAKU GAONA MD Ot R41.8 2 ALTERED MENTAL STATUS, UNSPECIFIED 08/17/2019 KWAKU GAONA MD Ot R79.8 9 OTHER SPECIFIED ABNORMAL FINDINGS OF BLO 08/17/2019 KWAKU GAONA MD Ot Z85.4 1 PERSONAL HISTORY OF MALIGNANT NEOPLASM O 08/17/2019 KWAKU GAONA MD Ot Z91.1 9 PATIENT'S NONCOMPLIANCE W [facility] MEDICAL TR 08/27/2019 MATTHEW DAVID MD [...] MD, Ot I25.10 ATHSCL HEART DISEASE OF [place] CORONARY 08/27/2019 MATTHEW DAVID MD, Ot I25 [...] 08/27/2019 MATTHEW DAVID MD, Ot Z79.899 OTHER PRE CODER (CURRENT) DRUG THERAPY 08/27/2019 MATTHEW DAVID MD, [...] MD Ot I25.10 ATHSCL HEART DISEASE OF [place] CORONARY 08/28/2019 MATTHEW DAVID MD Ot I25 [...] 08/28/2019 MATTHEW DAVID MD, Ot Z79.899 OTHER PRE CODER (CURRENT) DRUG THERAPY 08/28/2019 MATTHEW DAVID MD, Ot Z87.820 PERSONAL HISTORY OF TRAUMATIC BRAIN INJU 08/28/2019 MATTHEW DAVID MD, Ot Z91.19 PATIENT'S NONCOMPLIANCE W [facility] MEDICAL TR 08/28/2019 MATTHEW DAVID MD, [...] MD, Ot I25.10 ATHSCL HEART DISEASE OF [place] CORONARY 08/29/2019 MATTHEW DAVID MD, Ot I25 [...] 08/29/2019 MATTHEW DAVID MD, Ot Z79.899 OTHER RESIDENTIAL (CURRENT) DRUG THERAPY 08/29/2019 MATTHEW DAVID MD, Ot Z87.820 PERSONAL HISTORY OF TRAUMATIC BRAIN INJU 08/29/2019 MATTHEW DAVID MD, Ot Z91.19 PATIENT'S NONCOMPLIANCE W [facility] MEDICAL TR 08/29/2019 MATTHEW DAVID MD, [...] MD Ot I25.10 ATHSCL HEART DISEASE OF [place] CORONARY 08/29/2019 MATTHEW DAVID MD Ot I25 [...] DAVID MD, Ot T43.595A ADVERSE EFFECT OF [facility] ANTIPSYCHOTICS AND 08/29/2019 MATTHEW DAVID MD, Ot Z79.899 OTHER PRE CODER (CURRENT) DRUG THERAPY 08/29/2019 MATTHEW DAVID MD, Ot Z87.820 PERSONAL HISTORY OF TRAUMATIC BRAIN INJU 08/29/2019 MATTHEW DAVID MD, Ot Z91.19 PATIENT'S NONCOMPLIANCE W OT MEDICAL TR 08/29/2019 MATTHEW DAVID MD, Ot Z99.81 DEPENDENCE ON SUPPLEMENTAL OXYGEN 09/18/2019 RAJAN VALDOVINOS DO Ot D63.8 ANEMIA IN OTHER CHRONIC DISEASES CLASSIF 09/18/2019 RAJAN VALDOVINOS DO Ot E11.22 TYPE 2 DIABETES MELLITUS W DIABETIC PAROLE AGENT 09/18/2019 RAJAN VALDOVINOS DO Ot E11.51 TYPE [...] RAJAN Ot I25.10 ATHSCL HEART DISEASE OF [place] CORONARY 09/18/2019 ARUNA DO RAJAN Ot I25.2 [...] ARUNA LANGE RAJAN Ot M54.2 CERVICALGIA 09/18/2019 RAUNA LANGE RAJAN Ot N17.9 ACUTE KIDNEY FAILURE, UNSPECIFIED 09/18/2019 ARUNA LANGE RAJAN Ot N18.9 CHRONIC KIDNEY DISEASE, UNSPECIFIED 09/18/2019 ARUNA LANGE RAJAN Ot Z79.82 RESIDENTIAL (CURRENT) USE OF ASPIRIN 09/18/2019 ARUNA LANGE [...] APRN Ot I25.10 ATHSCL HEART DISEASE OF [place] CORONARY 10/09/2019 NEERAJ VILLA APRN Ot I25 .2 OLD MYOCARDIAL INFARCTION 10/09/2019 NEERAJ VILLA APRN Ot J44 .9 CHRONIC OBSTRUCTIVE PULMONARY DISEASE, U 10/09/2019 NEERAJ VILLA APRN Ot K21 .9 GASTRO-ESOPHAGEAL REFLUX DISEASE WITHOUT 10/09/2019 NEERAJ VILLA APRN Ot R56 .9 UNSPECIFIED CONVULSIONS 10/09/2019 NEERAJ VILLA APRN Ot Z77.22 CNTCT W AND EXPSR TO ENVIRON TOBACCO SMO 10/09/2019 NEERAJ VILLA APRN Ot Z79.82 RESIDENTIAL (CURRENT) USE OF ASPIRIN 10/09/2019 NEERAJ VILLA [...] APRN Ot I25.10 ATHSCL HEART DISEASE OF [place] CORONARY 10/12/2019 NEERAJ VILLA APRN Ot I25 .2 OLD MYOCARDIAL INFARCTION 10/12/2019 NEERAJ VILLA APRN, Ot J44 .9 CHRONIC OBSTRUCTIVE PULMONARY DISEASE, U 10/12/2019 NEERAJ VILLA APRN Ot K21 .9 GASTRO-ESOPHAGEAL REFLUX DISEASE WITHOUT 10/12/2019 NEERAJ VILLA APRN Ot R56 .9 UNSPECIFIED CONVULSIONS 10/12/2019 NEERAJ VILLA APRN Ot Z77.22 CNTCT W AND EXPSR TO ENVIRON TOBACCO SMO 10/12/2019 NEERAJ VILLA APRN Ot Z79.82 RESIDENTIAL (CURRENT) USE OF ASPIRIN 10/12/2019 NEERAJ VILLA [...] Ot I25. 10 ATHSCL HEART DISEASE OF [place] CORONARY 10/28/2019 MICHAEL BURRELL MD Ot I25. [...] 10/28/2019 MICHAEL BURRELL MD, Ot Z79. 82 RESIDENTIAL (CURRENT) USE OF ASPIRIN 10/28/2019 MICHAEL BURRELL [...] Ot I25. 10 ATHSCL HEART DISEASE OF [place] CORONARY 11/01/2019 MICHAEL BURRELL MD Ot I25. [...] 11/01/2019 MICHAEL BURRELL MD, Ot Z79. 82 PRE CODER (CURRENT) USE OF ASPIRIN 11/01/2019 MICHAEL BURRELL [...] MD, Ot Z88. 8 ALLERGY STATUS TO [facility] DRUG/MEDS/BIOL SUB 11/01/2019 MICHAEL BURRELL MD, [...] MD, Ot I25.10 ATHSCL HEART DISEASE OF [place] CORONARY 12/01/2019 JEANIE MERINO MD, Ot I25.2 OLD MYOCARDIAL INFARCTION 12/01/2019 JEAINE MERINO MD, Ot I42.9 CARDIOMYOPATHY, UNSPECIFIED 12/01/2019 [...] MD, Ot I25.10 ATHSCL HEART DISEASE OF [place] CORONARY 12/01/2019 JEANIE MERINO MD, Ot I25.2 [...] MD Ot I25.10 ATHSCL HEART DISEASE OF [place] CORONARY 12/01/2019 JEANIE MERINO MD Ot I25.2 [...] MD, Ot I25.10 ATHSCL HEART DISEASE OF [place] CORONARY 12/01/2019 JEANIE MERINO MD, Ot I25.2 [...] MD Ot I25.10 ATHSCL HEART DISEASE OF [place] CORONARY 12/02/2019 JEANIE MERINO MD Ot I25.2 [...] MD Ot I25.10 ATHSCL HEART DISEASE OF [place] CORONARY 12/02/2019 JEANIE MERINO MD Ot I25.2 [...] MD Ot I25.10 ATHSCL HEART DISEASE OF [place] CORONARY 12/03/2019 JEANIE MERINO MD Ot I25.2 [...] MD, Ot I25.10 ATHSCL HEART DISEASE OF [place] CORONARY 12/03/2019 JEANIE MERINO MD, Ot I25.2 [...] N26.1 ATROPHY OF KIDNEY (TERMINAL) 12/03/2019 JEANIE MERION MD, Ot N39.0 URINARY TRACT INFECTION, SITE [...] MD, Ot I25.10 ATHSCL HEART DISEASE OF [place] CORONARY 12/04/2019 JEANIE MERINO MD, Ot I25.2 [...] MD, Ot I25.10 ATHSCL HEART DISEASE OF [place] CORONARY 12/04/2019 JEANIE MERINO MD, Ot I25.2 [...] MD Ot I25.10 ATHSCL HEART DISEASE OF [place] CORONARY 01/08/2020 SANTHOSH LOWE MD Ot I25.2 OLD MYOCARDIAL INFARCTION 01/08/2020 CHRISSY GONZALES, SANTHOSH Castellano Ot I42.9 CARDIOMYOPATHY, UNSPECIFIED [...] MD Ot I25.10 ATHSCL HEART DISEASE OF [place] CORONARY 01/11/2020 SANTHOSH LOWE MD Ot I25.2 [...] PERSONAL HISTORY OF MALIGNANT NEOPLASM O 01/11/2020 SANTHSOH LOWE MD Ot Z87.19 PERSONAL HISTORY OF OTHER DISEASES OF TH 01/11/2020 SANTHOSH LOWE MD Ot Z87.820 PERSONAL HISTORY OF TRAUMATIC BRAIN INJU 01/12/2020 INDRA GONZALES, MICHAEL Valdovinos Ot D64. 9 ANEMIA, UNSPECIFIED 01/12/2020 MICHAEL BURRELL MD Ot E11. 9 TYPE 2 DIABETES MELLITUS WITHOUT COMPLIC 01/12/2020 MICHAEL BURRELL MD Ot F31. 9 BIPOLAR DISORDER, UNSPECIFIED 01/12/2020 MICHAEL BURERLL MD Ot F41. 9 ANXIETY DISORDER, UNSPECIFIED 01/12/2020 MICHAEL BURRELL MD Ot G40.909 EPILEPSY, UNSP, NOT INTRACTABLE, WITHOUT 01/12/2020 MICHAEL BURRELL MD, Ot I10 ESSENTIAL (PRIMARY) HYPERTENSION 01/12/2020 MICHAEL BURRELL MD, Ot I25. 10 ATHSCL HEART DISEASE OF [place] CORONARY 01/12/2020 MICHAEL BURRELL MD, Ot I25. [...] 01/12/2020 MICHAEL BURRELL MD, Ot Z79. 82 PRE CODER (CURRENT) USE OF ASPIRIN 01/12/2020 MICHAEL BURRELL [...] MD, Ot Z88. 8 ALLERGY STATUS TO [facility] DRUG/MEDS/BIOL SUB 01/12/2020 MICHAEL BURRELL MD, [...] MD, Ot I25.10 ATHSCL HEART DISEASE OF [place] CORONARY 02/10/2020 MATTHEW DAVID MD Ot I25 [...] MD Ot I25.10 ATHSCL HEART DISEASE OF [place] CORONARY 02/10/2020 MATTHEW DAVID MD, Ot I25 [...] I10 ESSENTIAL (PRIMARY) HYPERTENSION 02/13/2020 NEERAJ VILLA APRN Ot I25.10 ATHSCL HEART DISEASE OF [place] CORONARY 02/13/2020 NEERAJ VILLA APRN Ot I25 .2 OLD MYOCARDIAL INFARCTION 02/13/2020 NEERAJ VILLA APRN, Ot J44 .9 CHRONIC OBSTRUCTIVE PULMONARY DISEASE, U 02/13/2020 NEERAJ VILLA APRN Ot K21 .9 GASTRO-ESOPHAGEAL REFLUX DISEASE WITHOUT 02/13/2020 NEERAJ VILLA APRN Ot R56 .9 UNSPECIFIED CONVULSIONS 02/13/2020 NEERAJ VILLA APRN Ot Z77.22 CNTCT W AND EXPSR TO ENVIRON TOBACCO SMO 02/13/2020 NEERAJ VILLA APRN Ot Z79.82 RESIDENTIAL (CURRENT) USE OF ASPIRIN 02/13/2020 NEERAJ VILLA APRN Ot Z82.49 FAMILY HX OF ISCHEM HEART DIS AND OTH DI 02/13/2020 NEERAJ VILLA APRN Ot Z85.41 PERSONAL HISTORY OF MALIGNANT NEOPLASM O 02/13/2020 NEERAJ VILLA APRN Ot Z86.73 PRSNL HX OF TIA (TIA), AND CEREB INFRC W 02/13/2020 NEERAJ VILLA APRN Ot Z87.440 PERSONAL HISTORY OF URINARY (TRACT) INFE 02/13/2020 NEERAJ VILLA APRN Ot Z87.442 PERSONAL HISTORY OF URINARY CALCULI 02/13/2020 NEERAJ VILLA APRN Ot Z87.820 PERSONAL HISTORY OF TRAUMATIC BRAIN INJU 02/13/2020 NEERAJ VILLA APRN Ot Z87.891 PERSONAL HISTORY OF NICOTINE DEPENDENCE 02/13/2020 NEERAJ VILLA APRN Ot Z88 .8 ALLERGY STATUS TO [facility] DRUG/MEDS/BIOL SUB 02/13/2020 NEERAJ VILLA APRN Ot Z90.710 ACQUIRED ABSENCE OF BOTH CERVIX AND UTER 02/13/2020 NEERAJ VILLA APRN Ot Z90.89 ACQUIRED ABSENCE OF OTHER ORGANS 05/02/2020 Paolo PERKINS MD Ot 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 05/02/2020 Paolo PERKINS MD Ot I27.20 PULMONARY HYPERTENSION, UNSPECIFIED 05/02/2020 Paolo PERKINS MD Ot I42 .8 OTHER CARDIOMYOPATHIES 05/02/2020 Paolo PERKINS MD, Ot N18 .9 CHRONIC KIDNEY DISEASE, UNSPECIFIED 05/02/2020 Paolo PERKINS MD Ot 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 05/02/2020 Paolo PERKINS MD, Ot Z11 .2 ENCOUNTER FOR SCREENING FOR OTHER BACTER 05/02/2020 Paolo PERKINS MD Ot I34 .0 NONRHEUMATIC MITRAL (VALVE) INSUFFICIENC 05/02/2020 Ot R56.9 UNSP ECIFIED CONVULSIONS 05/03/2020 QUIN JONES MD Ot E11.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 05/03/2020 QUIN JONES MD Ot F17.210 NICOTINE DEPENDENCE, CIGARETTES, UNCOMPL 05/03/2020 QUIN JONES MD Ot F31.9 BIPOLAR DISORDER, UNSPECIFIED 05/03/2020 QUIN JONES MD Ot F41.9 ANXIETY DISORDER, UNSPECIFIED 05/03/2020 QUIN JONES MD Ot G40.909 EPILEPSY, UNSP, NOT INTRACTABLE, WITHOUT 05/03/2020 QUIN JONES MD Ot I10 ESSENTIAL (PRIMARY) HYPERTENSION 05/03/2020 QUIN JONES MD Ot I25.10 ATHSCL HEART DISEASE OF [place] CORONARY 05/03/2020 QUIN JONES MD Ot I25.2 OLD MYOCARDIAL INFARCTION 05/03/2020 QUIN JONES MD Ot I42.9 CARDIOMYOPATHY, UNSPECIFIED 05/03/2020 QUIN JONES MD Ot K21.9 GASTRO-ESOPHAGEAL REFLUX DISEASE WITHOUT 05/03/2020 QUIN JONES MD Ot M19.90 UNSPECIFIED OSTEOARTHRITIS, UNSPECIFIED 05/03/2020 QUIN JONES MD Ot Z79.899 OTHER PRE CODER (CURRENT) DRUG THERAPY 05/03/2020 QUIN JONES MD Ot Z85.41 PERSONAL HISTORY OF MALIGNANT NEOPLASM O 05/03/2020 QUIN JONES MD Ot Z86.73 PRSNL HX OF TIA (TIA), AND CEREB INFRC W 05/03/2020 QUIN JONES MD Ot Z87.19 PERSONAL HISTORY OF OTHER DISEASES OF 05/03/2020 QUIN JONES MD Ot E11.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 05/03/2020 QUIN JONES MD Ot F17.210 NICOTINE DEPENDENCE, CIGARETTES, UNCOMPL 05/03/2020 QUIN JONES MD Ot F31.9 BIPOLAR DISORDER, UNSPECIFIED 05/03/2020 QUIN JONES MD Ot F41.9 ANXIETY DISORDER, UNSPECIFIED 05/03/2020 QUIN JONES MD Ot G40.909 EPILEPSY, UNSP, NOT INTRACTABLE, WITHOUT 05/03/2020 QUIN JONES MD Ot I10 ESSENTIAL (PRIMARY) HYPERTENSION 05/03/2020 QUIN JONES MD Ot I25.10 ATHSCL HEART DISEASE OF [place] CORONARY 05/03/2020 QUIN JONES MD Ot I25.2 OLD MYOCARDIAL INFARCTION 05/03/2020 QUIN JONES MD Ot I42.9 CARDIOMYOPATHY, UNSPECIFIED 05/03/2020 QUIN JONES MD Ot K21.9 GASTRO-ESOPHAGEAL REFLUX DISEASE WITHOUT 05/03/2020 QUIN JONES MD Ot M19.90 UNSPECIFIED OSTEOARTHRITIS, UNSPECIFIED 05/03/2020 QUIN JONES MD Ot Z79.899 OTHER PRE CODER (CURRENT) DRUG THERAPY 05/03/2020 QUIN JONES MD Ot Z85.41 PERSONAL HISTORY OF MALIGNANT NEOPLASM O 05/03/2020 QUIN JONES MD Ot Z86.73 PRSNL HX OF TIA (TIA), AND CEREB INFRC W 05/03/2020 QUIN JONES MD Ot Z87.19 PERSONAL HISTORY OF OTHER DISEASES OF 05/03/2020 QUIN JONES MD Ot Z87.820 PERSONAL HISTORY OF TRAUMATIC BRAIN INJU Procedures Code Description Performed By Per grey On 38.93 VENO US CATHETERIZATION NEC 02/05/2010 53.69 OTH OPEN REP OTH HERNIA OF ANTER ABD W 02/05/2010 Urology Tom Mason 09/16/2012 General S Logan Kwan 10/28/2012 42034 ROUT INE VENIPUNCTURE 12/09/2012 20460 CMP 12/09/2012 84423 PHEN OBARBITAL 12/09/2012 06324 TSH 12/09/2012 32865 CBC 12/09/2012 PODIATRY W HÉCTORVIRGILIO LopezIN 03/02/2013 37.22 LEFT HEART CARDIAC CATH 05/10/2013 88.53 LT H EART ANGIOCARDIOGRAM 05/10/2013 88.56 MISAEL DENEEN ARTERIOGR-2 CATH 05/10/2013 09909 ECHO 2D 05/21/2013 86.04 OTHE R SKIN SUBQ I D 06/20/2013 Physical W [facility], Mtc 06/29/[address] A BDOMEN & PELVIS W/ & W/O CONTRAST 12/10/2013 75847 OXIMETRY 12/10/2013 53694 ROUT INE VENIPUNCTURE 08/05/2014 13800 CBC 08/05/2014 [id number] GF R CALC (RESULT ONLY) 08/05/2014 56737 CMP 08/05/2014 48242 OXIMETRY 11/28/2014 J1885 BENJAMIN DOL PER 15 MG, INJ KETOROLAC TROMETHAMINE 11/28/2014 58565 EAR LAVAGE 02/02/2015 [id number] IN SERTION OF INFUSION DEV INTO SUP VENA 05/15/2018 [id number] IN SERTION OF ENDOTRACHEAL AIRWAY INTO TR 07/02/2019 [id number] RE SPIRATORY VENTILATION, LESS THAN 24 CO 07/02/2019 [id number] IN SERTION OF ENDOTRACHEAL AIRWAY INTO TR 08/26/2019 [id number] RE SPIRATORY VENTILATION, LESS THAN 24 CO 08/26/2019 [id number] RE SPIRATORY VENTILATION, 24- 96 CONSECUTI 08/26/2019 [id number] IN SERTION OF INFUSION DEV INTO SUP VENA 09/15/2019 [id number] IN SERTION OF TIVAD INTO CHEST SUBCU/FASC 09/15/2019 [id number] IN SERTION OF ENDOTRACHEAL AIRWAY INTO TR 09/17/2019 [id number] RE SPIRATORY VENTILATION, LESS THAN 24 CO [...] culture - 08/05/16 21:25 Bacterial urine culture [id number] NRG COLONY COUNT >100,000/ML NRG FTX;REPORTABLE SENSITIVITY [...] 7-25 CREATININE 1.57 mg/dL 0.50-1.05 eGFR NON-AFR. SAO TOMEAN 36 mL/min/1.73m2 > OR = 60 eGFR [...] culture - 07/02/19 11:04 Bacterial urine culture [id number] NRG COLONY COUNT >100,000/ML NRG FTX;REPORTABLE SUSCEPTIBILITIES [...] OF GROWTH FEW NRG Bacterial sputum culture [id number] NRG Dirithromycin susceptibility test by dis k [...] < mg/dL <10 PHENOBARBITAL - 08/12/19 05:50 [id number] 11.7 % 15.0-40.0 Urine drug screening test [...] culture - 08/15/19 01:10 Bacterial urine culture [id number] NRG COLONY COUNT 80,000 CFU/ML NRG FTX;REPORTABLE [...] 188.3 pg/mL <100.0 PHENOBARBITAL - 08/26/19 03:55 [id number] 8.0 % 15.0-40.0 Influenza virus A and [...] OF GROWTH Isolated NRG Bacterial blood culture [id number] NRG Methicillin resistant Staphylococcus aur eus (MRSA) [...] INFLUENZA A AND B ANTIGENS BY IA [facility] Bacterial blood culture - 10/27/19 22:42 QUANTITY OF GROWTH . [facility] Bacterial blood culture SEE COMMEN [facility] Complete blood count (CBC) [...] INFLUENZA A AND B ANTIGENS BY IA [facility] Comprehensive metabolic panel - 11/28/19 [...] OF GROWTH Isolated NRG Bacterial blood culture [id number] NR FREE TEXT ENTRY 2 SUSCEPTIBILITY REPORTED 12/02/19 11:35 NRG FREE TEXT ENTRY 3 BY RML NRG Bacterial blood culture - 11/28/19 11:05 FREE TEXT EXTERNAL PROBABLE STREPTOCOCCUS GORDONII NRG QUANTITY OF GROWTH Isolated NRG Bacterial blood culture [id number] NR FREE TEXT ENTRY 2 REFER TO [...] culture - 11/28/19 11:20 Bacterial urine culture [id number] NRG COLONY COUNT >100,000/ML NRG FTX;REPORTABLE SUSCEPTIBILITY REPORTED 11/30/19 12: 05 NRG FREE TEXT ENTRY 2 PRELIM RAPID ID TEST AT [facility] 11/29 07:50 NRG FREE TEXT [...] - 01/08/20 01:30 Bacterial blood culture NG [facility] Bacterial blood culture - 01/08/20 02:17 Bacterial blood culture NG [facility] Bacterial blood culture - 02/05/20 21:00 QUANTITY OF GROWTH . [facility] Bacterial blood culture SEE COMMEN [facility] Blood lactic acid measurement (moles/vol [...] complete blood count (he mogram) panel - 02/05/20 21:05 Blood leukocytes [...] culture - 02/05/20 21:08 Bacterial urine culture [id number] NRG COLONY COUNT >100,000/ML NRG SUSCEPTIBILITY SUSCEPTIBILITY [...] 1.6 mg/dL 1.6-2.4 PHENOBARBITAL - 02/08/20 20:40 [id number] 24.5 % 15.0-40.0 Automated blood complete blood [...] by glucometer (mas s/volume) 91 mg/dL 70-110 Comprehensive metabolic panel - 05/02/20 12:40 Serum or plasma sodium measurement (moles/volume) 140 mmol/L 135-145 Serum or plasma potassium measurement (moles/volume) 5.5 mmol/L 3.6-5.0 Serum or plasma chloride measurement (moles/volume) 109 mmol/L 98-107 Carbon dioxide 21 mmol/L 21-32 Serum or plasma anion gap determination (moles/volume) 10 mmol/L 5-14 Serum or plasma urea nitrogen measurement (mass/volume ) 46 mg/dL 7-18 Serum or plasma creatinine measurement [...] plasma alkaline phosphatase lorenzo surement (enzymatic activity/volume) 79 U/L 40-136 Serum or plasma aspartate aminotransfera se measurement (enzymatic activity/volume) 14 U/L 5-34 Serum or plasma alanine aminotransferase measurement (enzymatic activity/volume) 18 U/L 0-55 Serum or plasma protein measurement (mass/volume) 7.6 g/dL 6.4-8.2 Serum or plasma albumin measurement (mass/volume) 4.1 g/dL 3.2-4.5 CALCIUM CORRECTED 8.7 mg/dL 8.5-10.1 Complete blood count (CBC) with automate d white blood cell (WBC) differential - 05/02/20 12:40 Blood leukocytes automated count (number/volume) 5.3 10*3/uL 4.3-11.0 Blood erythrocytes automated count (number/volume) 4.33 10*6/uL 4.35-5.85 Venous blood hemoglobin measurement (mass/volume) [...] 10.0- 14.5 Automated blood platelet count (count/volume) 364 10*3/uL 130-400 Automated blood platelet mean volume measurement 10.1 [foz_us] 7.4-10.4 Automated blood neutrophils/100 leukocytes 46 % 42-75 Automated blood lymphocytes/100 leukocytes 41 % 12-44 Blood monocytes/100 leukocytes 8 % 0-12 Automated blood eosinophils/100 leukocytes 5 [...] in platel et poor plasma (mass/volume) - 05/02/20 12:40 Fibrin D-dimer FEU measurement in platelet poor plasma (mass/volume) 0.50 ug/mL 0.00-0.49 Serum ragweed IgE antibody assay - 05/02 12:40 Serum ragweed IgE antibody assay 171 U/L 125-220 PROCALCITONIN (PCT) - 05/02/20 12:40 PROCALCITONIN (PCT) 0.02 ng/mL <0.10 Erythrocyte sedimentation rate by liset gren method - 05/02/20 12:40 Erythrocyte sedimentation rate by westergren method 19 mm 0- 30 Serum or plasma C reactive protein measu rement (mass/volume) - 05/02/20 12:40 Serum or plasma C reactive protein measurement (mass/v olume) 0.39 mg/dL 0.00-0.50 Arterial blood gas measurement - 0 14:52 Blood pCO2 45 mm[Hg] 35-45 Blood pO2 68 mm[Hg] 79-93 Arterial blood bicarbonate measurement (moles/volume) 27 mmol/L 23-27 Arterial blood base excess by calculation 2.6 mmol /L -2.5-2.5 Arterial blood oxygen saturation measurement 92 % 94-100 * Inhaled oxygen flow rate ROOM AIR NRG Arterial blood pH measurement with patient temperature correction 7.39 7.37-7.43 Arterial blood carbon dioxide, total measurement (mole s/volume) 28.7 mmol/L 21.0-31.0 Body site LT RAD NRG Assessment of wrist artery patency prior to arterial p uncture YES-POS NRG Setting of ventilation mode NO NR G Measurement of body temperature 36.3 NRG Complete urinalysis with reflex to cultu re - 05/26/20 15:15 Urine color determination YELLOW NRG Urine clarity [...] Status Pt. Type Provider Facility Loc./Unit Complaint [id number] 09/13/2014 14:47:00 ACT Unknown [id number] 02/03/2015 04:27:10 ACT Document Registration [id number] 05/02/2020 12:35:00 020 14:45:00 DIS Outpatient ROBERT GONZALES, QUIN Villavicencio [facility] ER SEIZURE [id number] 02/05/2020 21:48:00 17:52:00 DIS Inpatient JOANN GONZALES, MATTHEW Longoria [facility] ICU SEIZURE DISORDER,UNRESPONSIVE,METHAMPHETAMINE USE [id number] 01/08/2020 01:15:00 04:55:00 DIS Emergency CHRISSY GONZALES, SANTHOSH Castellano [facility] ER SEIZURE [id number] 11/28/2019 13:35:00 13:53:00 DIS Inpatient ANGELIQUE GONZALES, JEANIE Boone [facility] ICU ARF, UTI, ABD P AIN [id number] 10/27/2019 21:42:00 03:00:00 DIS Emergency INDRA GONZALES, MICHAEL Valdovinos [facility] ER WEAKNESS [id number] 10/09/2019 14:09:00 17:15:00 DIS Emergency NEERAJ VILLA MUD ANALYSIS OPERATOR [facility] ER SEIZURE [id number] 09/14/2019 10:38:00 14:45:00 DIS Inpatient VALDOVINOS DO, RAJAN [facility] ICU SEIZURE; [id number] 08/26/2019 07:23:00 13:46:00 DIS Inpatient JOANN GONZALES, MATTHEW Longoria [facility] 4TH ALTERED MENTAL STATUS;A CUTE ON CHRONIC RESP. FAIL- [id number] 08/12/2019 09:48:00 13:00:00 DIS Inpatient KWAKU GAONA MD [facility] 4TH SEIZURE,ACUTE RENAL MARTHA LURE, TROPONIN [id number] 07/07/2019 09:23:00 16:40:00 DIS Inpatient VALDOVINOS DO, RAJAN [facility] 4TH CHEST PAIN;DEHYDRATION;DIARRHEA,ACUTE RENAL INSUF. [id number] 07/02/2019 14:23:00 15:35:00 DIS Inpatient VALDOVINOS DO, RAJAN [facility] 4TH AMS, RESPIRATORY FAILUR E, UTI [id number] 05/04/2019 08:39:00 019 12:59:00 DIS Emergency QUIN JONES MD [facility] ER CHEST PAIN [id number] 09/10/2018 20:19:00 018 21:49:00 DIS Emergency NEERAJ VILLA MUD ANALYSIS OPERATOR [facility] ER SEIZURE [id number] 08/27/2018 14:28:00 23:59:59 CLS Preadmit Paolo PERKINS MD [facility] SLEEP LAUREN [id number] 08/20/2018 10:18:00 23:59:59 CLS Outpatient Paolo PERKINS MD [facility] MODERATE TO SEVERE MITR AL REGURGITATION [id number] 08/03/2018 06:30:00 23:59:59 CLS Outpatient Paolo PERKINS MD [facility] SEVERE MITRAL REGURGITA TION BY PRIOR ECHO [id number] 07/24/2018 13:33:00 23:59:59 CLS Outpatient Paolo PERKINS MD [facility] CARD I34.0 MITRAL REGURGITAT ION [id number] 07/17/2018 07:52:00 23:59:59 CLS Outpatient Paolo PERKINS MD [facility] LAB N18.9 [id number] 02/20/2018 22:00:00 018 18:50:00 DIS Inpatient DEGROOT DO, GAVI K [facility] 4TH ELEVATED TROPONIN,ELEVA BRINA D- DIMER,SOA [id number] 02/03/2018 22:20:00 018 01:26:00 DIS Emergency MICHAEL BURRELL MD [facility] ER CP/SEIZURE [id number] 06/18/2017 18:03:00 017 21:14:00 DIS Emergency STAR ORTIZ [facility] ER LT LEG SORE/BRUISING [id number] 03/06/2017 09:45:00 017 11:46:00 DIS Emergency QUIN JONES MD [facility] ER ABD PAIN [id number] 11/23/2016 14:15:00 017 16:00:00 DIS Emergency QUIN JONES MD [facility] ER SOA/COUGH/VOMIT ING [id number] 08/05/2016 20:48:00 016 22:20:00 DIS Emergency KAILA DOHOLA [facility] ER R LEG WOUND/PAINFUL URI NATION/LOWER BACK PAIN [id number] 01/27/2016 20:37:00 016 02:05:00 DIS Emergency HOLA BRIGHT DO [facility] ER ABD PAIN,N,V,D [id number] 01/27/2016 01:55:00 016 05:47:00 DIS Emergency SANTHOSH LOWE MD [facility] ER L FLANK PAIN [id number] 02/02/2015 15:37:00 015 17:07:00 DIS Emergency STAR ORTIZ [facility] ER PAIN [id number] 01/19/2015 01:46:00 015 04:46:00 DIS Emergency SANTHOSH LOWE MD [facility] ER MERSA FLARING U P [id number] 11/27/2014 20:30:00 015 22:29:00 DIS Emergency STAR ORTIZ [facility] ER BACK PAIN [id number] 06/07/2014 16:31:00 014 14:12:00 DIS Inpatient GAVI DEGROOT DO, V [facility] ICU INTRACTABLE L HIP PAIN, UNABLE TO CARE FOR SELF [id number] 06/05/2014 13:39:00 014 16:45:00 DIS Emergency STAR ORTIZ [facility] ER FALL NECK PAIN AND VALDEMAR K PAIN [id number] 05/23/2014 20:00:00 014 11:35:00 DIS Inpatient JOANN GONZALES, MATTHEW Longoria [facility] ICU CHEST PAIN,COPD EXACERBATION,ELEVATED D-DIMER [id number] 04/09/2014 13:14:00 014 16:26:00 DIS Emergency NEERAJ VILLA APRN [facility] ER ABD PAIN [id number] 04/06/2014 10:52:00 014 11:45:00 DIS Inpatient DEGROOT DO, GAVI K [facility] 4TH RESPIRATORY DISTRESS,HYPOXIA,PNEUMONIA,CHEST PAIN [id number] 03/18/2014 16:36:00 014 18:25:00 DIS Emergency NEERAJ VILLA APRN [facility] ER SOA [id number] 02/04/2014 19:05:00 014 23:17:00 DIS Emergency KAILA , HOLA Alec Turk a [facility] ER CHEST PAIN [id number] 11/14/2013 14:21:00 18:24:00 DIS Emergency NEERAJ VILLA APRN [facility] ER LOWER BACK PAIN [id number] 09/28/2013 23:45:00 013 02:02:00 DIS Emergency CHRISSY GONZALES, SANTHOSH Castellano [facility] ER CHEST PAIN [id number] 09/15/2013 12:59:00 013 14:32:00 DIS Emergency ROBERT GONZALES, QUIN Villavicencio [facility] ER COUGH [id number] 09/13/2013 15:15:00 08:46:00 DIS Inpatient VASILIY GONZALES, ABELARDO Valdovinos [facility] ICU CHEST PAIN, ELEVATED TR OPONIA [id number] 07/29/2013 14:25:00 14:49:00 DIS Outpatient BRI VILLASEÑOR [facility] WOUNDCARE LEG ABSCESS [id number] 06/20/2013 00:03:00 16:42:00 DIS Inpatient MIKAYLA LANGE, GAVI Heath [facility] SURGICAL MULTIPLE ABSCESSES [id number] 06/04/2013 12:49:00 23:59:59 CLS Outpatient ABELARDO AMANDA MD [facility] RAD CHF [id number] 06/04/2013 10:53:00 23:59:59 CLS Outpatient ABELARDO AMANDA MD [facility] CARD [facility] [id number] 05/30/2013 13:54:00 15:27:00 DIS Emergency CHRISSY GONZALES, SANTHOSH Castellano [facility] ER CHEST PAIN [id number] 05/10/2013 01:14:00 14:24:00 DIS Inpatient JONATHAN GONZALES, NGOC Valdovinos [facility] ICU NSTEMI,CHEST PAIN,HYPER TENSIVE URGENCY [id number] 04/29/2013 14:28:00 23:59:59 CLS Outpatient [id number] 05/26/2020 15:03:00 Document Registration [id number] 02/05/2020 20:57:00 Document Registration [id number] 05/15/2018 00:10:00 Document Registration [id number] 01/27/2016 05:53:00 Document Registration [id number] 12/01/2014 13:05:00 Document Registration [id number] 12/17/2012 04:30:00 Document Registration [id number] 08/03/2012 03:50:00 Document Registration [id number] 07/23/2012 17:10:00 Document Registration [id number] 05/25/2012 03:15:00 Document Registration [id number] 05/09/2012 19:20:00 Document Registration [id number] 03/28/2012 06:00:00 Document Registration [id number] 10/10/2011 13:00:00 Document Registration [id number] 07/16/2011 01:55:00 Document Registration [id number] 07/02/2011 06:44:00 Document Registration [id number] 04/12/2011 19:39:00 Document Registration [id number] 03/22/2011 02:40:00 Document Registration [id number] 03/19/2011 17:35:00 Document Registration [id number] 03/03/2011 20:58:00 Document Registration [id number] 01/21/2011 21:56:00 Document Registration [id number] 12/28/2010 15:45:00 Document Registration [id number] 11/04/2010 20:43:00 Document Registration [id number] 02/05/2010 04:25:00 Document Registration [id number] 04/29/2017 09:08:00 Document Registration [id number] 09/18/2016 08:45:00 Document Registration [id number] 02/05/2020 21:07:00 21:07:00 [facility] [place] [facility] [id number] 02/19/2018 14:28:36 02/19/2018 23:59:5 9 CLS Outpatient Virgie Bernal [id number] 01/31/2015 15:03:00 01/31/2015 23:59: 59 CLS Outpatient KRANTHI PRECIADO MD [id number] 11/28/2014 09:37:00 11/28/2014 23:59: 59 CLS Outpatient TRACEE LANGE APRN [id number] 08/05/2014 14:32:00 08/05/2014 23:59: 59 CLS Outpatient TRACEE LANGE APRN [id number] 07/04/2014 12:54:00 07/04/2014 23:59: 59 CLS Outpatient GAVI DEGROOT DO [id number] 05/02/2014 15:01:00 05/02/2014 23:59: 59 CLS Outpatient GAVI DEGROOT DO [id number] 12/10/2013 14:53:00 12/10/2013 23:59: 59 CLS Outpatient TRACEE LANGE APRN [id number] 09/29/2013 15:37:00 09/29/2013 23:59: 59 CLS Outpatient TRACEE LANGE APRN [id number] 09/18/2013 12:00:00 09/18/2013 23:59: 59 CLS Outpatient TRACEE LANGE APRN [id number] 07/15/2013 14:04:00 07/15/2013 23:59: 59 CLS Outpatient KRANTHI PRECIADO MD [id number] 05/31/2013 09:17:00 05/31/2013 23:59: 59 CLS Outpatient KRANTHI PRECIADO MD [id number] 12/09/2012 17:16:00 12/09/2012 23:59: 59 CLS Outpatient TRACEE LANGE APRN [id number] 10/28/2012 12:04:00 10/28/2012 23:59: 59 CLS Outpatient TRACEE LANGE APRN [id number] 10/19/2012 16:04:00 10/19/2012 23:59: 59 CLS Outpatient [id number] 09/16/2012 15:22:00 09/16/2012 23:59: 59 CLS Outpatient [id number] 08/14/2012 10:30:00 08/14/2012 23:59:5 9 CLS Outpatient KRANTHI PRECIADO MD [id number] 05/21/2013 10:29:00 Document Registration [id number] 03/02/2013 15:46:00 Document Registration [id number] 04/21/2020 09:20:00 04/21/2020 23:59:5 9 CLS Outpatient TRACEE LANGE APRN [facility] [id number] 06/11/2019 13:40:00 Document Registration [id number] 05/05/2019 10:40:00 Document Registration [id number] 11/30/2018 15:40:00 Document Registration [id number] 09/04/2018 11:00:00 Document Registration
== END 2020-05-26 16:24 | disposition home or self-care (01) ==
LOC: EDUNIT# 14:33 → ER 14:34
DX: G40.909 Epilepsy, unspecified, not intractable, without status epilepticus (principal); I10 Essential (primary) hypertension; I25.10 Atherosclerotic heart disease of native coronary artery without angina pectoris; I25.2 Old myocardial infarction; K21.9 Gastro-esophageal reflux disease without esophagitis; F41.9 Anxiety disorder, unspecified; F31.9 Bipolar disorder, unspecified; G89.29 Other chronic pain; M54.2 Cervicalgia; M54.9 Dorsalgia, unspecified; F17.210 Nicotine dependence, cigarettes, uncomplicated; Z85.41 Personal history of malignant neoplasm of cervix uteri; Z91.14 Patient's other noncompliance with medication regimen; Z88.8 Allergy status to other drugs, medicaments and biological substances; Z86.73 Personal history of transient ischemic attack (TIA), and cerebral infarction without residual deficits; Z82.49 Family history of ischemic heart disease and other diseases of the circulatory system
CPT/HCPCS: 81000; 82805; 93005

== ENCOUNTER 2020-05-30 14:52 | Emergency (ER) | payer MEDICAID ==
[~2020-05-30] VITALS: Ht 157.5 cm; Wt 81.6 kg
[2020-05-30] MEDS ORDERED: NS IV 1000 ML 1,000 ML IV SCH (14:57)
[2020-05-30 15:08] LABS: BASOPHILS % (AUTO) 1 % (0-10); EOSINOPHILS # (AUTO) 0.2 10^3/uL (0.0-0.3); EOSINOPHILS % (AUTO) 3 % (0-10); HEMATOCRIT 36 % (35-52); HEMOGLOBIN 11.6 G/DL (11.5-16.0); LYMPHOCYTES # (AUTO) 2.1 X 10^3 (1.0-4.0); LYMPHOCYTES % (AUTO) 35 % (12-44); MEAN CORPUSCULAR HEMOGLOBIN 28 PG (25-34); MEAN CORPUSCULAR HGB CONC 32 G/DL (32-36); MEAN CORPUSCULAR VOLUME 87 FL (80-99); MEAN PLATELET VOLUME 9.1 FL (7.4-10.4); MONOCYTES # (AUTO) 0.4 X 10^3 (0.0-1.0); MONOCYTES % (AUTO) 6 % (0-12); NEUTROPHILS # (AUTO) 3.3 X 10^3 (1.8-7.8); NEUTROPHILS % (AUTO) 56 % (42-75); PLATELET COUNT 404 10^3/uL (130-400); RED CELL DISTRIBUTION WIDTH 15.5 % (10.0-14.5)
[2020-05-30 15:18] LABS: ALBUMIN 4.1 GM/DL (3.2-4.5)
[2020-05-30 15:19] LABS: CHLORIDE 106 MMOL/L (98-107); POTASSIUM 4.5 MMOL/L (3.6-5.0); SODIUM 140 MMOL/L (135-145)
[2020-05-30 15:20] LABS: CALCIUM 8.9 MG/DL (8.5-10.1)
[2020-05-30 15:21] LABS: GLUCOSE 78 MG/DL (70-105)
[2020-05-30 15:22] LABS: CARBON DIOXIDE 23 MMOL/L (21-32)
[2020-05-30 15:23] LABS: BILIRUBIN,TOTAL 0.1 MG/DL (0.1-1.0)
[2020-05-30 15:24] LABS: ALKALINE PHOSPHATASE 80 U/L (40-136)
[2020-05-30 15:25] LABS: CREATININE SERUM 1.23 MG/DL (0.60-1.30); GFR ESTIMATED 45
[2020-05-30 15:26] LABS: BUN/CREATININE RATIO 32
[2020-05-30 15:27] LABS: MAGNESIUM 2.1 MG/DL (1.6-2.4)
[2020-05-30 15:28] LABS: ALANINE AMINOTRANSFERASE 27 U/L (0-55); LIPASE 51 U/L (8-78)
[2020-05-30] MEDS ORDERED: LEVETIRACETAM INJECTION 1,000 MG in NS (IVPB) 100 ML IV ONE ×2 (15:30→21:00)
[2020-05-30 16:56] LABS: BILIRUBIN,URINE NEGATIVE (NEGATIVE); CLARITY,URINE CLEAR; COLOR,URINE YELLOW; GLUCOSE, URINE (UA) NEGATIVE (NEGATIVE); KETONES,URINE NEGATIVE (NEGATIVE); LEUKOCYTE ESTERASE ,URINE TRACE (NEGATIVE); NITRITE,URINE NEGATIVE (NEGATIVE); PROTEIN,URINE NEGATIVE (NEGATIVE)
[2020-05-30 17:07] LABS: AMORPHOUS SEDIMENT,UR RARE AMOR URATES /LPF; BACTERIA,URINE TRACE /HPF
[2020-05-30 17:13] LABS: AMPHETAMINE SCREEN, URINE NEGATIVE (NEGATIVE); BARBITURATE SCREEN URINE POSITIVE (NEGATIVE); BENZODIAZEPINES SCREEN URINE NEGATIVE (NEGATIVE); CANNABINOID SCREEN, URINE NEGATIVE (NEGATIVE); COCAINE SCREEN URINE NEGATIVE (NEGATIVE); METHADONE STAT NEGATIVE (NEGATIVE); METHAMPHETAMINE SCREEN URINE S NEGATIVE (NEGATIVE); OPIATE SCREEN URINE NEGATIVE (NEGATIVE); OXYCODONE STAT NEGATIVE (NEGATIVE); PROPOXYPHENE STAT NEGATIVE (NEGATIVE); TRICYCLIC ANTIDEPRESSANTS SCRE NEGATIVE (NEGATIVE)
--- OUTSIDE RECORDS SUMMARY | 2020-05-30 17:18 | XMS REPORT | Clinical Summary ---
Author Author [facility] Organization [facility] Address Unknown Phone Unavailable Care Team Providers Care Color Receiver Name Role Phone PaulonAgelaSandervika LANGE Unavailable Anita Lopez MD Unavailable Joshua Lynch MD Unavailable Sherice Laurent DO PCP Armin Ventura MD Unavailable Flory Kim RN Unavailable Unavailable Zaynab Zhang MD Unavailable Unavailable Source Comments Some departments are not documenting in the electronic medical record. If you d o not see the information that you expected, contact Release of Information in merged with [facility] [employer] Information Management department at [phone] for further assistan ce in locating additional records.[facility] Allergies Comments Active Allergy Reactions Severity [...] Comments Vital Sign 110/80 11/11/2014 1:07 PM HATCHERY SUPERVISOR Blood Pressure 72 11/11/2014 1:07 PM HATCHERY SUPERVISOR Pulse 36.5 C (97.7 F) 11/11/2014 1:07 PM HATCHERY SUPERVISOR Temperature 16 11/11/2014 1:07 PM HATCHERY SUPERVISOR Respiratory Rate 94% 09/21/2014 7:45 AM HATCHERY SUPERVISOR Oxygen Saturation - - Inhaled Oxygen Concentration 82.1 kg (181 lb) 11/11/2014 1:07 PM HATCHERY SUPERVISOR Weight 160 cm (5' 3") 11/11/2014 1:07 PM HATCHERY SUPERVISOR Height 32.06 11/11/2014 1:07 PM HATCHERY SUPERVISOR Body Mass Index Plan of Treatment [...] Infection 06/14/2014 06/14/2014 MRSA Advance Directives 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
--- OUTSIDE RECORDS SUMMARY | 2020-05-30 17:22 | XMS REPORT ---
Author Author [facility] Address Unknown Phone Unavailable Care Team Providers Care Adjunct Business Instructor Name Role Phone Migration, Doctor Unavailable Unavailable PROBLEMS Type Condition ICD9-CM Code ATU97-LO Code Onset Dates Condition S tatus SNOMED Code Notes Problem Lumbar neuritis M54.16 Active 218182546 Problem Thoracic neuritis M54.14 Active 90765744 Problem Hypertension, benign I10 Active 73023062 Problem Cardiomyopathy I42.9 Active 26120826 Problem Epileptic seizure, generalized G40.309 Active 1 1137731 Problem Excessive daytime sleepiness G47.19 Active 141 036372801 Problem GERD (gastroesophageal reflux disease) K21.9 A ctive 396065358 Problem Panlobular emphysema J43.1 Active 4557199 Problem Intracranial injury, without loss of consciousness, subsequent encounter S06.9X0D Active 600619633 Problem Ventricular arrhythmia I49.9 Active 18904743 Problem Mood disorder F39 Active 86408302 Problem Seasonal allergic rhinitis, unspecified trigger J3 0.2 Active 212115907 Problem Observed sleep apnea G47.30 Active 44245678 ALLERGIES No Known Allergies ENCOUNTERS from 1960 to 2020-05-27 Encounter Location Date Provider Diagnosis [facility] [address] [facility] [id number] [address] [place] [address] Jan, Doctor Migration IMMUNIZATIONS Vaccine Route Administration Date Status TORADOL (IM) 60 MG/2ML (UP TO 15 MG) IM Intramuscular March 07 17 Administered TORADOL (IM) 60 MG/2ML (UP TO 15 MG) IM Intramuscular Nov 04 20 Administered TORADOL (IM) 60 MG/2ML (UP TO 15 MG) IM Intramuscular Aug 15 17 Administered PHENERGAN (IM) 25 MG (25 MG/ML) IM Intramuscular Aug 15, 2017 Administered TORADOL (IM) 60 MG/2ML (UP TO 15 MG) IM Intramuscular April 21 Administered influenza IIV3 (history) Unknown Jul 29, 2012 Pending Influenza, seasonal, injectable (split), for 3 yrs and up Unknow n Nov 02, 2010 Pending SOCIAL HISTORY Tobacco Use: Social History Observation Description Date Details (start date - stop date) Never Smoker Sex Assigned At : Social History Observation Description Sex Assigned At Unknown Tobacco Use/Smoking Question Answer Notes Are you a never smoker Sexual History Question Answer Notes Had sex in the past 12 months (vaginal, oral, or anal)? No Have you ever had a Sexually transmitted disease? No Tobacco use other than smoking: Question Answer Notes Are you an other tobacco user? No REASON FOR REFERRAL No Information VITAL SIGNS No information MEDICATIONS Medication SIG (Take, Route, Frequency, Duration) Start Date En d Date Status Prazosin HCl 1 MG 1 capsule at bedtime Orally Once a day f or 90 days Jan, Active HydrOXYzine HCl 25 MG 1 tablet as needed 2 times a day for 30 days Active Amlodipine Besylate 5 MG 1 tablet Orally 2 times a day Active Metoprolol Succinate 1 capsule Orally Once a day for 90 days Active Levetiracetam 500 MG 2 tablets Orally Twice a day Active Normal Saline Flush 0.9 % as directed Intravenous February, Active Depakote 250 MG 1 tablet Orally Twice a day for 30 day(s) Apr, Active Clonidine HCl 0.2 MG 1 tablet 2 times a day Active Oxybutynin Chloride 5 MG 1 tablet Orally Twice a day for 30 day( s) February, Active Cyclobenzaprine HCl 10 mg 1 tablet as needed Three times a day Active Vitamin D (Ergocalciferol) 1.25 MG (01581 UT) 1 capsul e Orally once weekly for 90 days Jan, Active Metoprolol Succinate ER 100 MG 1 tablet Orally Once a day fo r 90 days February, Active Pepcid 20 MG 1 tablet Orally 2 times a day for 90 days Aug, Active HydrALAZINE HCl 100 MG 1 tablet Orally 3 times a day Active Loratadine 10 MG 1 tablet Orally Once a day for 30 day(s) 10 Dec, 2 018 Active Famotidine 20 MG 1 tablet as needed Orally Twice a day fo r 30 day(s) Mar, Active Coreg 25 mg 1 tablet Orally Twice a day for 30 day(s) Active Oxygen 2L as directed inhale as directed: continuo us. DX: emphysema. 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 % Medical History Chronic Obstructive pulmonary disease Medical History Hernia-repaired Medical History Hyperactive bladder Medical History [id number] 03/2011-6.1 % Medical History Epilepsy and recurrent [...] Hospitalization History [facility] for dehydration 08/17/19 Goals Section No Information Health Concerns No Information MEDICAL EQUIPMENT No Information MENTAL STATUS No Information FUNCTIONAL STATUS No Information ASSESSMENTS No Information PLAN OF TREATMENT Medication Medication Name Sig Start Date Stop Date Depakote 250 MG 1 tablet Orally Twice a day for 30 day(s) Apr Insurance Providers Payer Name Payer Address Payer Phone Insured Name Patient Relati onship to Insured Coverage Start Date Coverage End Date A I G DENTAL [address] [place] [address] Radha Gregory [place] [facility] [address] [facility] [id number] Michelle Gregory
--- NOTE | 2020-05-30 17:34 | ED Neurological Problem ---
General Chief Complaint: Neurological Problems Stated Complaint: SEIZURE Nursing Triage Note: Pt to ED via EMS for seizure. EMS reports pt was at [facility] when pt began having a seizure. Employees reports pt was "in and out." EMS reports giving pt 5 mg Versed at 1423. Pt began seizing again enroute and EMS administered 5 mg versed at 1442. Pt c/o headache. Nursing Sepsis Screen: No Definite Risk Source: patient, EMS, old records Exam Limitations: no limitations History of Present Illness Date Seen by Provider: May 30, 2020 Time Seen by Provider: 14:53 Initial Comments This 59-year-old woman presents to the emergency room after having a seizure at a local grocery store/pharmacy. She had seizures intermittently for about 12 minutes according to store workers. EMS arrived and administered Versed 5 mg IM. Patient had a rebound seizure and the dose was repeated. Patient appears postictal but is arousable on arrival. She denies any recent illness. She cannot recall she took her Keppra this morning. Patient states it has been months since she has used any drugs or alcohol. Allergies and Home Medications Allergies Coded Allergies: nitrous oxide (Verified Allergy, Unknown, 06/08/07) Home Medications Acetaminophen 500 Mg Tablet, 1,000 MG PO Q6H PRN for PAIN-MILD, (Reported) Amlodipine Besylate 10 Mg Tablet, 5 MG PO BID, (Reported) TAKES OF A 10MG TAB TWICE DAILY Carvedilol 25 Mg Tab, 25 MG PO BID, (Reported) LAST FILLED 12-17-2019 #60 Clonidine HCl 0.2 Mg Tablet, 0.2 MG PO BID, (Reported) Cyclobenzaprine HCl 10 Mg Tablet, 10 MG PO TID PRN for MUSCLE SPASMS, (Reported) Ergocalciferol (Vitamin D2) 1,250 Mcg Capsule, 1,250 MCG PO WEEK, (Reported) Famotidine 20 Mg Tablet, 20 MG PO BID, (Reported) Hydralazine HCl 100 Mg Tablet, 100 MG PO TID, (Reported) Hydroxyzine HCl 25 Mg Tablet, 25 MG PO BID PRN for ANXIETY, (Reported) Levetiracetam 500 Mg Tablet, 1,000 MG PO BID LAST FILLED 12-07-2019 #120 TAKES 2 (500MG) TABS TWICE DAILY Prescribed by: MATTHEW DAVID on 02/08/20 1105 Loratadine 10 Mg Tablet, 10 MG PO DAILY, (Reported) Metoprolol Succinate 100 Mg Tab.er.24h, 100 MG PO DAILY, (Reported) Nitrofurantoin Monohyd/M-Cryst 100 Mg Capsule, 1 TAB PO BID Prescribed by: MATTHEW DAVID on 02/08/20 1109 Oxcarbazepine 300 Mg Tablet, 600 MG PO BID LAST FILLED 12-07-2019 #120 TAKES 2 (300MG)TABS TWICE DAILY Prescribed by: MATTHEW DAVID on 02/08/20 1105 Phenobarbital 64.8 Mg Tablet, 129.6 MG PO BID, (Reported) TAKES 2 (64.8MG) TABS TO EQUAL 129.6 Prazosin HCl 1 Mg Capsule, 1 MG PO HS, (Reported) Patient Home Medication List Home Medication List Reviewed: Yes Review of Systems Review of Systems Constitutional: no symptoms reported Eyes: No Symptoms Reported Ears, Nose, Mouth, Throat: no symptoms reported Respiratory: no symptoms reported Cardiovascular: no symptoms reported Gastrointestinal: no symptoms reported Genitourinary: no symptoms reported Musculoskeletal: no symptoms reported Skin: no symptoms reported Psychiatric/Neurological: See HPI Endocrine: No Symptoms Reported Hematologic/Lymphatic: No Symptoms Reported Past Qeilnbk-Zezsoe-Motbwj Hx Past Med/Social Hx: Reviewed Nursing Past Med/Soc Hx Patient Social History Alcohol Use: Occasionally Uses Recreational 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, 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) Drug of Choice: + IV METH USE, THC USE Type Used: Cigarettes 2nd Hand Smoke Exposure: No Recent Foreign Travel: No Contact w/Someone Who Travel: No Recent Infectious Disease Expo: No Recent Hopitalizations: No Immunizations Up To Date Tetanus Booster (TDap): Less than 5yrs PED Vaccines UTD: No Date of Pneumonia Vaccine: Jul 13, 2012 Date of Influenza Vaccine: Jul 15, 2019 Seasonal Allergies Seasonal Allergies: No Past Medical History Surgeries: Yes Abdominal, Adenoidectomy, Cardiac, Section, Hysterectomy, Oophorectomy, Tonsillectomy Respiratory: Yes COPD Currently Using CPAP: No Currently Using BIPAP: No Cardiac: Yes Cardiomyopathy, Coronary Artery Disease, Endocarditis, Heart Attack, Hypertensio n, Peripheral Vascular, Valvular Heart Disease Neurological: Yes Concussion, Seizure Disorder, Stroke, Traumatic Brain Injury 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 Disorders: No Female 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, 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 Sexually Transmitted Disease: No HIV/AIDS: No Genitourinary: Yes Kidney Infection, Bladder Infection, Kidney Stones, Renal Failure, UTI-Chronic Gastrointestinal: Yes Abdominal Hernia, Gastroesophageal Reflux, Pancreatitis, Hepatitis Musculoskeletal: Yes (CHRONIC NECK AND BACK PAIN; POOR AMBULATION) Arthritis, Chronic Back Pain Endocrine: Yes (HGB AIC WAS 6.5 ON 12/23/18) Diabetes, Non-Insulin dep HEENT: Yes (POOR DENTITION) Loss of Vision: Denies Hearing Impairment: Denies Cancer: No Cervical Psychosocial: Yes (POLYSUBSTANCE ABUSE) Anxiety, Bipolar, Depression Integumentary: No Blood Disorders: Yes (ANEMIA OF CHRONIC DISEASE) Adverse Reaction/Blood Tranf: No Family Medical History Abdominal aortic aneurysm 03 FATHER Alcoholism 03 FATHER 03 MOTHER 09 SISTER 09 SISTER Cancer 03 FATHER Cataract 03 FATHER 03 MOTHER Chest pain 03 MOTHER Family history: Diabetes mellitus 03 MOTHER Family history: Hypertension 03 MOTHER Family history: Thyroid disorder 03 MOTHER Headache 09 SISTER Heart disease 03 MOTHER History of drug abuse 03 FATHER 09 SISTER Myocardial infarction 03 MOTHER No Family History of: Dougherty's disease Aphasia Cancer of colon Congenital heart disease Congestive heart failure Cystic fibrosis Dementia Dysphagia Family history: Allergy Family history: Alzheimer's disease Family history: Arthritis Family history: Asthma Family history: Breast disease Family history: Cardiovascular disease Family history: Coronary thrombosis Family history: Gastrointestinal disease Family history: Glaucoma Family history: Osteoporosis Hearing loss Hereditary disease History of - anemia History of - disorder History of - respiratory disease Human immunodeficiency virus (HIV) seropositivity Hypercholesterolemia Infertile Kidney disease Malignant neoplasm of lung Parkinson's disease Prostate cancer Psychotic disorder Seizure disorder Stroke Tuberculosis Visual impairment AAA, Heart Disease, Diabetes Physical Exam Vital Signs Vital Signs - First Documented 05/30/20 14:52 Temp 36.3 Pulse 95 Resp 22 B/P (MAP) 159/111 (127) Pulse Ox 92 O2 Delivery Room Air Capillary Refill : Less Than 3 Seconds Height, Weight, BMI Height: 5'3.00" Weight: 155lbs. 8.0oz. 70.045667cj; 32.00 BMI Method:Stated General Appearance: WD/WN, no apparent distress HEENT: PERRL/EOMI, normal ENT inspection Neck: normal inspection Respiratory: lungs clear, normal breath sounds, no respiratory distress Cardiovascular: regular rate, rhythm, no edema, no murmur Gastrointestinal: normal bowel sounds, non tender, soft Extremities: normal inspection, no pedal edema Neurologic/Psychiatric: brokerage manager II-XII nml as tested, no motor/sensory deficits, alert, other (Appears postictal) Crainal Nerves: normal hearing, normal speech, PERRL Motor/Sensory: no motor deficit Skin: normal color, warm/dry Procedures/Interventions Date of ETT Placement: Sep 17, 2019 Time of ETT Placement: 1745 Progress/Results/Core Measures Results/Orders Lab Results Laboratory Tests Test 05/30/20 15:00 05/30/20 15:02 05/30/20 16:50 Range/Units White Blood Count 6.0 4.3-11.0 10^3/uL Red Blood Count 4.18 L 4.35-5.85 10^6/uL Hemoglobin 11.6 11.5-16.0 G/DL Hematocrit 36 35-52 % Mean Corpuscular Volume 87 80-99 FL Mean Corpuscular Hemoglobin 28 25-34 PG Mean Corpuscular Hemoglobin Concent 32 32-36 G/DL Red Cell Distribution Width 15.5 H 10.0-14.5 % Platelet Count 404 H 130-400 10^3/uL Mean Platelet Volume 9.1 7.4-10.4 FL Neutrophils (%) (Auto) 56 42-75 % Lymphocytes (%) (Auto) 35 12-44 % Monocytes (%) (Auto) 6 0-12 % Eosinophils (%) (Auto) 3 0-10 % Basophils (%) (Auto) 1 0-10 % Neutrophils # (Auto) 3.3 1.8-7.8 X 10^3 Lymphocytes # (Auto) 2.1 1.0-4.0 X 10^3 Monocytes # (Auto) 0.4 0.0-1.0 X 10^3 Eosinophils # (Auto) 0.2 0.0-0.3 10^3/uL Basophils # (Auto) 0.0 0.0-0.1 10^3/uL Sodium Level 140 135-145 MMOL/L Potassium Level 4.5 3.6-5.0 MMOL/L Chloride Level 106 98-107 MMOL/L Carbon Dioxide Level 23 21-32 MMOL/L Anion Gap 11 5-14 MMOL/L Blood Urea Nitrogen 39 H 7-18 MG/DL Creatinine 1.23 0.60-1.30 MG/DL Estimat Glomerular Filtration Rate 45 BUN/Creatinine Ratio 32 Glucose Level 78 70-105 MG/DL Calcium Level 8.9 8.5-10.1 MG/DL Corrected Calcium 8.8 8.5-10.1 MG/DL Magnesium Level 2.1 1.6-2.4 MG/DL Total Bilirubin 0.1 0.1-1.0 MG/DL Aspartate Amino Transf (AST/SGOT) 19 5-34 U/L Alanine Aminotransferase (ALT/SGPT) 27 0-55 U/L Alkaline Phosphatase 80 40-136 U/L Total Protein 8.0 6.4-8.2 GM/DL Albumin 4.1 3.2-4.5 GM/DL Lipase 51 8-78 U/L Serum Alcohol < 10 <10 MG/DL Glucometer 87 70-110 MG/DL Urine Color YELLOW Urine Clarity CLEAR Urine pH 6.0 5-9 Urine Specific Taft 1.015 L 1.016-1.022 Urine Protein NEGATIVE NEGATIVE Urine Glucose (UA) NEGATIVE NEGATIVE Urine Ketones NEGATIVE NEGATIVE Urine Nitrite NEGATIVE NEGATIVE Urine Bilirubin NEGATIVE NEGATIVE Urine Urobilinogen 0.2 < = 1.0 MG/DL Urine Leukocyte Esterase TRACE H NEGATIVE Urine RBC (Auto) NEGATIVE NEGATIVE Urine RBC NONE /HPF Urine WBC 2-5 /HPF Urine Squamous Epithelial Cells 5-10 /HPF Urine Crystals PRESENT H /LPF Urine Amorphous Sediment RARE SABRA URATES H /LPF Urine Bacteria TRACE /HPF Urine Casts NONE /LPF Urine Mucus NEGATIVE /LPF Urine Culture Indicated NO Urine Opiates Screen NEGATIVE NEGATIVE Urine Oxycodone Screen NEGATIVE NEGATIVE Urine Methadone Screen NEGATIVE NEGATIVE Urine Propoxyphene Screen NEGATIVE NEGATIVE Urine Barbiturates Screen POSITIVE H NEGATIVE Ur Tricyclic Antidepressants Screen NEGATIVE NEGATIVE Urine Phencyclidine Screen NEGATIVE NEGATIVE Urine Amphetamines Screen NEGATIVE NEGATIVE Urine Methamphetamines Screen NEGATIVE NEGATIVE Urine Benzodiazepines Screen NEGATIVE NEGATIVE Urine Cocaine Screen NEGATIVE NEGATIVE Urine Cannabinoids Screen NEGATIVE NEGATIVE My Orders Orders - SANTHOSH LOWE MD Alcohol (05/30/20 14:57) Cbc With Automated Diff (05/30/20 14:57) Comprehensive Metabolic Panel (05/30/20 14:57) Drug Screen Stat (Urine) (05/30/20 14:57) Lipase (05/30/20 14:57) Magnesium (05/30/20 14:57) Ua Culture If Indicated (05/30/20 14:57) Ed Iv/Invasive Line Start (05/30/20 14:57) Ns Iv 1000 Ml (Sodium Chloride 0.9%) (05/30/20 14:57) Ekg Tracing (05/30/20 14:57) Monitor-Rhythm Ecg Trace Only (05/30/20 14:57) Levetiracetam Injection (Keppra Injectio (05/30/20 15:30) Medications Given in ED Current Medications Medications Dose Ordered Sig/Tad Route Start Time Stop Time Status Last Admin Dose Admin Levetiracetam 1000 mg/Sodium Chloride 110 ml @ 440 mls/hr ONCE ONCE IV 05/30/20 15:30 05/30/20 15:44 DC 05/30/20 15:50 440 MLS/HR Vital Signs/I&O 05/30/20 05/30/20 14:52 17:50 Temp 36.3 Pulse 95 89 Resp 22 18 B/P (MAP) 159/111 (127) 168/92 Pulse Ox 92 95 O2 Delivery Room Air Blood Pressure Mean: 127 Progress Progress Note : Progress Note Patient was hydrated and treated with Keppra. No gross abnormalities were identified on workup. She was ultimately discharged into the care of her sister. Initial ECG Impression Date: May 30, 2020 Initial ECG Impression Time: 15:04 Initial ECG Rate: 99 Initial ECG Rhythm: Normal Sinus Initial ECG Intervals: Normal Comment Normal sinus rhythm with no ST elevation or depression. No abnormal intervals. LVH by automated read. Departure Impression Primary Impression: Seizures Disposition: 01 HOME, SELF-CARE Condition: Improved Departure-Patient Inst. Referrals: [facility] (PCP/Family) Primary Care Physician Patient Instructions: Epilepsy in Adults Add. Discharge Instructions: Continue your medications as previously prescribed. Please contact your doctor in the morning to schedule follow-up. See your doctor as soon as possible. Drink plenty of clear liquids and get plenty of rest. Return to care if you have recurrent seizures or if you develop other symptoms such as fever. All discharge instructions reviewed with patient and/or family. Voiced understanding. Copy Copies To 1: GAVI DEGROOT JOSHUA T MD May 30, 2020 17:34
--- OUTSIDE RECORDS SUMMARY | 2020-05-30 17:34 | XMS REPORT | Continuity of Care Document ---
Demographics Preferred Language Unknown Marital Status Unknown Yarsani Affiliation Unknown Race Unknown Ethnic Group Unknown Author Author [facility] KEREN Ríos Organization [employer] Address Unknown Phone Unavailable Allergies Active Description Code Type Severity Reaction Onset Reported/Identified Relationship to Patient Clinical Status Yes nitrous oxide [id number] [place] g Allergy Unknown N/A 06/08/2007 Yes AILEEN Inhibitors [id number] Dr ug Allergy Unknown N/A 05/25/2014 Yes No Allergy Information Available [id number] Drug Allergy Unknown N/A 020 Medications There [...] TRACEE LANGE APRN 53 6.8 DYSPEPSIA 03/23/2009 RTACEE LANGE APRN 787.02 Nausea 03/23/2009 TRACEE LANGE [...] LANGE APRN 84 0.9 SPRAIN/STRAIN SHOULDER/ARM 10/04/2009 DEGROOT DO, [...] LANGE APRN 84 4.9 SPRAIN/STRAIN KNEE/LEG 03/09/2010 DEGROOT DO, [...] Respiration 04/25/2010 786.52 Josselyn nful Respiration 04/25/2010 TRCAEE LANGE APRN 786.52 Painful Respiration 04/25/2010 TRACEE [...] Upper Respiratory Infections Of Unspecified Site 08/20/2010 RKANTHI PRECIADO MD 491.2 1 Obstructive Chronic Bronchitis [...] Obstructive Chronic Bronchitis With (acute) Exacerbation 08/20/2010 ANISA MOLINA TRACEE T 46 5.9 Acute Upper Respiratory Infections [...] Chronic Bronchitis With (acute) Exacerbati on 08/20/2010 DEGROOT DO, GAVI K 465.9 Acute Upper Respiratory Infections Of Unspecified Site 08/20/2010 MIKAYLA LANGE, GAVI K 491.21 Obstructive Chronic Bronchitis With (acute) Exacerbation 08/20/2010 MIKAYLA LANGE, GAVI K 465.9 Acute Upper Respiratory Infections Of Unspecified Site 08/20/2010 AGUSTÍN DEGROOT DOA K 491.21 Obstructive Chronic Bronchitis With (acute) [...] 327.23 OBSTRUCTIVE SLEEP APNEA (ADULT) (PEDIATRIC) 01/07/2011 MIKAYLA LANGE GAVI Alec 327.23 OBSTRUCTIVE SLEEP APNEA (ADULT) (PEDIATRIC) 01/07/2011 [...] TRACEE LANGE APRN 78 4.0 Headache 03/19/2011 RTACEE LANGE APRN 799.02 HYPOXEMIA 03/19/2011 TRACEE LANGE APRN 780.60 Fever Unspecified 03/19/2011 TRACEE LANGE APRN 78 4.0 Headache 03/19/2011 TRACEE LANGE APRN 799.02 HYPOXEMIA 03/19/2011 KRANTHI PRECIADO MD 780.6 0 Fever Unspecified 03/19/2011 KRANTHI PRECIADO MD 784.0 Headache 03/19/2011 KRANTHI RPECIADO MD 799.0 2 HYPOXEMIA 03/21/2011 Ot 345.90 [...] (IMPAIRED GLUCOSE TOLERANCE) 03/25/2011 GAVI DEGROOT DO 790.29 PREDIABETES (IMPAIRED GLUCOSE TOLERANCE) 03/25/2011 GAVI DEGROOT DO 790.29 PREDIABETES (IMPAIRED GLUCOSE TOLERANCE) 03/25/2011 TRACEE [...] QUENTIN TRAL HERNIA NOS 07/17/2011 Ot 571.8 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 07/17/2011 Ot 577.0 [...] 530.81 ESO PHAGEAL REFLUX 10/11/2011 Ot 585.9 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, UNSPECIFIED 10/11/2011 Ot 596.51 [...] APRN T 40 1.9 ESSENTIAL HYPERTENSION 10/23/2011 ANISA MOLINA TRACEE T 530.81 ESOPHAGEAL REFLUX 10/23/2011 401.9 ESSE [...] APRN T 40 1.9 ESSENTIAL HYPERTENSION 10/23/2011 ANISA [...] APRN T 40 1.9 ESSENTIAL HYPERTENSION 10/23/2011 ANISA [...] 780.39 SEIZURES OTHER 03/31/2012 TRACEE LANGE APRN T 787.01 NAUSEA WITH VOMITING 03/31/2012 DEGROOT DO, [...] ABDOMINAL PAIN RIGHT LOWER QUADRANT 07/29/2012 DEGROOT DOAGUSTÍNA K 070.70 HEPATITIS C, UNSPEC 07/29/2012 DEGROOT DO GAVI K 789.03 ABDOMINAL PAIN RIGHT LOWER QUADRANT 07/29/2012 DEGROOT DO GAVI K 070.70 HEPATITIS C, UNSPEC 07/29/2012 GAVI DEGROOT DO 789.03 ABDOMINAL PAIN RIGHT LOWER QUADRANT 07/29/2012 [...] 08/04/2012 Ot 414.01 COR ONARY ATHEROSCLEROSIS OF [place] CORON 08/04/2012 Ot 496 CHR AI RWAY OBSTRUCT NEC 08/04/2012 Ot 530.81 ESO PHAGEAL REFLUX 08/04/[address] PAIN NEC 09/16/2012 788.30 URI NARY INCONTINENCE UNSPECIFIED 09/16/2012 788.30 URI NARY INCONTINENCE UNSPECIFIED 09/16/2012 TARCEE LANGE APRN 788.30 [...] T 788.30 URINARY INCONTINENCE UNSPECIFIED 09/16/2012 KRANTHI PRECIDAO MD 788.3 0 URINARY INCONTINENCE UNSPECIFIED 10/19/2012 [...] APRN T 52 8.9 ORAL MUCOCELE 10/19/2012 KRANTHI PRECIADO [...] 12/20/2012 Ot 414.01 COR ONARY ATHEROSCLEROSIS OF [place] CORON 12/20/2012 Ot 486 PNEUMO ALEJA, ORGANISM [...] LANGE APRN T 27 6.7 HYPERKALEMIA 12/21/2012 ANISA MOLINA TRACEE T 27 6.7 HYPERKALEMIA 12/21/2012 TRACEE LANGE [...] MD Ot 414. 01 CORONARY ATHEROSCLEROSIS OF [place] CORON 05/11/2013 NGOC CASTILLO MD Ot 425. 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 06/24/2013 GAVI DEGROOT DO Ot 311 DEPRESSIVE DISORDER NEC 06/24/2013 GAVI DEGROOT DO Ot 345.90 EPILEPSY UNSPEC W/O MENTION INTRACTABLE 06/24/2013 GAVI DEGROOT DO Ot 403.90 HYPTNSV CHR KID DIS, UNSPEC, W CHR KD ST 06/24/2013 GAVI DEGROOT DO Ot 414.01 CORONARY ATHEROSCLEROSIS OF [place] CORON 06/24/2013 GAVI DEGROOT DO Ot 425.4 PRIM CARDIOMYOPATHY NEC 06/24/2013 GAVI DEGROOT DO Ot 438.89 OTH LATE EFFECT-CEREBROVASCULAR DISEASE 06/24/2013 GAVI DEGROOT DO Ot 491.20 OBSTR CHRONIC BRONCHITIS, W/O EXACERBATI 06/24/2013 AGUSTÍN DEGROOT DOA Alec Ot 530.81 ESOPHAGEAL REFLUX 06/24/2013 AGUSTÍN DEGROOT DOA Alec Ot 585.9 CHRONIC KIDNEY DISEASE, UNSPECIFIED 06/24/2013 GAVI DEGROOT DO Ot 682.3 CELLULITIS OF ARM 06/24/2013 GAVI DEGROOT DO Ot 682.6 CELLULITIS OF LEG 06/24/2013 AGUSTÍN DEGROOT DOA K Ot 728.87 MUSCLE WEAKNESS (GENERALIZED) 06/24/2013 GAVI [...] MD Ot 414. 01 CORONARY ATHEROSCLEROSIS OF [place] CORON 09/14/2013 ABELARDO AMANDA MD Ot 425. 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 04/08/2014 MIKAYLA LANGE GAVI K Ot 397.0 TRICUSPID VALVE DISEASE 04/08/2014 MIKAYLA DO GAVI K Ot 403.90 HYPTNSV CHR KID DIS, UNSPEC, W CHR KD ST 04/08/2014 DEGROOT DO GAVI Michael Ot 416.8 CHR PULMON HEART DIS NEC 04/08/2014 DEGROOT DO GAVI K Ot 424.0 MITRAL VALVE DISORDER 04/08/2014 DEGROOT DO GAVI Alec Ot 425.4 PRIM CARDIOMYOPATHY NEC 04/08/2014 DEGROOT DO GAVI K Ot 428.0 CONGESTIVE HEART FAILURE NOS 04/08/2014 DEGROOT DO GAVI K Ot 428.23 ACUTE CHRONIC SYSTOLIC HRT FAILURE 04/08/2014 MIKAYLA LANGE GAVI Michael Ot 466.0 ACUTE BRONCHITIS 04/08/2014 MIKAYLA LANGE GAVI Alec Ot 493.22 CHRONIC OBSTRUCTIVE ASTHMA, W (ACUTE) EX 04/08/2014 DEGROOT DO GAVI Michael Ot 518.84 ACUTE AND CHRONIC RESPIRATORY FAILURE 04/08/2014 MIKAYLA LANGE GAVI Alec Ot 530.81 ESOPHAGEAL REFLUX 04/08/2014 DEGROOT DO GAVI Michael Ot 585.9 CHRONIC KIDNEY DISEASE, UNSPECIFIED 04/08/2014 MIKAYLA DO GAVI Michael Ot V15.52 PERSONAL HISTORY OF TRAUMATIC BRAIN INJU 04/08/2014 MIKAYLA LANGE GAVI Alec Ot V45.02 AUTO IMPLANTABLE CARDIAC DEFIBRILLATOR I 04/09/2014 NEERAJ VILLA 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 Ot 486 PNEUMONIA, ORGANISM NOS 04/09/2014 NEERAJ VILLA 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 Ot 511 .9 PLEURAL EFFUSION NOS 05/25/2014 [...] ORTIZ Ot E888.9 FALL NOS 06/10/2014 MIKAYLA DO, GAVI K Ot 038.9 SEPTICEMIA NOS 06/10/2014 MIKAYLA LANGE, GAVI K Ot 041.11 METHICILLIN SUSCEPTIBLE STAPHYLOCOCCUS A 06/10/2014 DEGROOT DO, GAVI K Ot 276.7 HYPERPOTASSEMIA 06/10/2014 DEGROOT DO, GAVI K Ot 285.29 ANEMIA OF OTHER CHRONIC DISEASE 06/10/2014 DEGROOT DO, GAVI K Ot 305.71 AMPHETAMINE ABUSE-CONTIN 06/10/2014 DEGROOT DO, GAVI K Ot 397.0 TRICUSPID VALVE DISEASE 06/10/2014 DEGROOT DO, GAVI K Ot 403.90 HYPTNSV CHR KID DIS, UNSPEC, W CHR KD ST 06/10/2014 DEGROOT DO, GAVI K Ot 425.4 PRIM CARDIOMYOPATHY NEC 06/10/2014 DEGROOT DO, GAVI K Ot 428.0 CONGESTIVE HEART FAILURE NOS 06/10/2014 DEGROOT DO, GAVI K Ot 496 CHR AIRWAY OBSTRUCT NEC 06/10/2014 DEGROOT DO, GAVI K Ot 518.83 CHRONIC RESPIRATORY FAILURE 06/10/2014 GAVI DEGROOT DO Ot 585.3 CHRONIC KIDNEY DISEASE, STAGE III (MODER 06/10/2014 GAVI DEGROOT DO Ot 719.45 JOINT PAIN-PELVIS 06/10/2014 GAVI DEGROOT DO Ot 995.91 SEPSIS 06/10/2014 GAVI DEGROOT DO Ot V15.81 HX OF PAST NONCOMPLIANCE 08/05/2014 [...] ORTIZ Ot V58.69 OT MED,LT,CURRENT USE 01/27/2016 CHRISSY GONZALES, SANTHOSH Castellano [...] TRACT INFECTION, SITE NOT SPECIF 08/05/2016 KAILA , HOLA K Ot R30.0 DYSURIA 08/05/2016 KAILA HOLA K Ot Z23 ENCOUNTER FOR IMMUNIZATION 08/05/2016 KAILA , HOLA K Ot Z79.899 OTHER DIRECTOR CLIENT SERVICES (CURRENT) DRUG THERAPY 08/05/2016 KAILA , HOLA [...] MD Ot I25.10 ATHSCL HEART DISEASE OF [place] CORONARY 11/23/2016 QUIN JONES MD Ot J44.9 CHRONIC OBSTRUCTIVE PULMONARY DISEASE, U 11/23/2016 QUIN JONES MD Ot R05 COUGH 11/23/2016 QUIN JONES MD Ot Z79.899 OTHER GROUP HOME (CURRENT) DRUG THERAPY 11/26/2016 QUIN JONES MD Ot I25.10 ATHSCL HEART DISEASE OF [place] CORONARY 11/26/2016 QUIN JONES MD Ot J44.9 CHRONIC OBSTRUCTIVE PULMONARY DISEASE, U 11/26/2016 QUIN JONES MD Ot R05 COUGH 11/26/2016 QUIN JONES MD Ot Z79.899 OTHER DIRECTOR CLIENT SERVICES (CURRENT) DRUG THERAPY 12/26/2016 KAILA DO, HOLA [...] KAILA DO, HOLA K Ot Z79.899 OTHER DIRECTOR CLIENT SERVICES (CURRENT) DRUG THERAPY 12/26/2016 KAILA DO, HOLA [...] Ot I16.0 HYPERTENSIVE URGENCY 03/06/2017 QUIN JONES MD, Ot I25.10 ATHSCL HEART DISEASE OF [place] CORONARY 03/06/2017 QUIN JONES MD, Ot J44.9 CHRONIC OBSTRUCTIVE PULMONARY DISEASE, U 03/06/2017 QUIN JONES MD Ot K59.00 CONSTIPATION, UNSPECIFIED 03/06/2017 QUIN JONES MD Ot R10.30 LOWER ABDOMINAL PAIN, UNSPECIFIED 03/06/2017 QUIN JONES MD Ot Z79.899 OTHER DIRECTOR CLIENT SERVICES (CURRENT) DRUG THERAPY 03/06/2017 ABELARDO AMANDA MD Ot 397. 0 TRICUSPID VALVE DISEASE 03/06/2017 ABELARDO AMANDA MD Ot 424. 0 MITRAL VALVE DISORDER 03/06/2017 ABELARDO AMANDA MD Ot 428. 0 CONGESTIVE HEART FAILURE NOS 03/06/2017 ABELARDO AMANDA MD Ot 428. 0 CONGESTIVE HEART FAILURE NOS 03/07/2017 QUIN JONES MD Ot I16.0 HYPERTENSIVE URGENCY 03/07/2017 QUIN JONES MD Ot I25.10 ATHSCL HEART DISEASE OF [place] CORONARY 03/07/2017 QUIN JONES MD, Ot J44.9 CHRONIC OBSTRUCTIVE PULMONARY DISEASE, U 03/07/2017 QUIN JONES MD Ot K59.00 CONSTIPATION, UNSPECIFIED 03/07/2017 QUIN JONES MD Ot R10.30 LOWER ABDOMINAL PAIN, UNSPECIFIED 03/07/2017 QUIN JONES MD, Ot Z79.899 OTHER DIRECTOR CLIENT SERVICES (CURRENT) DRUG THERAPY 06/18/2017 ABELARDO AMANDA MD [...] ORTIZ Ot I25.10 ATHSCL HEART DISEASE OF [place] CORONARY 06/18/2017 STAR ORTIZ Ot I25.2 OLD [...] 428. 0 CONGESTIVE HEART FAILURE NOS 07/23/2017 VASILIY MD, BASHAR J Ot 428. 0 CONGESTIVE HEART FAILURE NOS 02/03/2018 VASILIY GONZALES, ABELARDO Valdovinos Ot 397. 0 TRICUSPID VALVE DISEASE 02/03/2018 [...] Ot I25. 10 ATHSCL HEART DISEASE OF [place] CORONARY 02/04/2018 MICHAEL BURRELL MD Ot I25. [...] 02/04/2018 MICHAEL BURRELL MD Ot Z79. 51 DIRECTOR CLIENT SERVICES (CURRENT) USE OF INHALED STERO 02/04/2018 MICHAEL BURRELL MD Ot Z79. 52 DIRECTOR CLIENT SERVICES (CURRENT) USE OF SYSTEMIC STER 02/04/2018 MICHAEL [...] MD Ot Z88. 8 ALLERGY STATUS TO [facility] DRUG/MEDS/BIOL SUB 02/04/2018 MICHAEL BURRELL [...] Ot I25. 10 ATHSCL HEART DISEASE OF [place] CORONARY 02/05/2018 MICHAEL BURRELL MD Ot I25. [...] 02/05/2018 MICHAEL BURRELL MD Ot Z79. 51 DIRECTOR CLIENT SERVICES (CURRENT) USE OF INHALED STERO 02/05/2018 MICHAEL BURRELL MD Ot Z79. 52 DIRECTOR CLIENT SERVICES (CURRENT) USE OF SYSTEMIC STER 02/05/2018 MICHAEL [...] OTHER DISEASES OF UR 02/05/2018 MICHAEL BURRELL MD, Ot Z87. 59 PERSONAL HISTORY OF COMP OF PREG, CHLDBR 02/05/2018 MICHAEL BURRELL MD Ot Z87.820 PERSONAL HISTORY OF TRAUMATIC BRAIN INJU 02/05/2018 MICHAEL BURRELL MD Ot Z88. 8 ALLERGY STATUS TO [facility] DRUG/MEDS/BIOL SUB 02/05/2018 MICHAEL BURRELL [...] DO Ot I25.10 ATHSCL HEART DISEASE OF [place] CORONARY 02/24/2018 GAVI DEGROOT DO Ot I27.20 PULMONARY HYPERTENSION, UNSPECIFIED 02/24/2018 GAVI DEGROOT DO Ot I34.0 NONRHEUMATIC MITRAL (VALVE) INSUFFICIENC 02/24/2018 MIKAYLA DOGAVI Ot I42.0 DILATED CARDIOMYOPATHY 02/24/2018 AGUSTÍN DEGROOT DOA K Ot I50.21 ACUTE SYSTOLIC (CONGESTIVE) HEART FAILUR 02/24/2018 AGUSTÍN DEGROOT DOA K Ot N18.9 CHRONIC KIDNEY DISEASE, UNSPECIFIED 02/24/2018 AGUSTÍN DEGROOT DOA K Ot Z79.89 9 OTHER DIRECTOR CLIENT SERVICES (CURRENT) DRUG THERAPY 02/24/2018 AGUSTÍN DEGROOT DOA K Ot G40.90 9 EPILEPSY, UNSP, NOT INTRACTABLE, WITHOUT 02/24/2018 MIKAYLA LANGE, GAVI K Ot G89.29 OTHER CHRONIC PAIN 02/24/2018 AGUSTÍN DEGROOT DOA K Ot I12.9 HYPERTENSIVE CHRONIC KIDNEY DISEASE W ST 02/24/2018 AGUSTÍN DEGROOT DOA K Ot I25.10 ATHSCL HEART DISEASE OF [place] CORONARY 02/24/2018 AGUSTÍN DEGROOT DOA K Ot I27.20 PULMONARY HYPERTENSION, UNSPECIFIED 02/24/2018 AGUSTÍN DEGROOT DOA K Ot I34.0 NONRHEUMATIC MITRAL (VALVE) INSUFFICIENC 02/24/2018 AGUSTÍN DEGROOT DOA K Ot I42.0 DILATED CARDIOMYOPATHY 02/24/2018 AGUSTÍN DEGROOT DOA K Ot I50.21 ACUTE SYSTOLIC (CONGESTIVE) HEART FAILUR 02/24/2018 GAVI DEGROOT DO K Ot N18.9 CHRONIC KIDNEY DISEASE, UNSPECIFIED 02/24/2018 AGUSTÍN DEGROTO DOA K Ot Z79.89 9 OTHER DIRECTOR CLIENT SERVICES (CURRENT) DRUG THERAPY 05/15/2018 Ot A41.9 SEPS [...] Ot I25.10 ATH SCL HEART DISEASE OF [place] CORONARY 05/15/2018 Ot I42.9 CARD IOMYOPATHY, UNSPECIFIED 05/15/2018 Ot 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 05/15/2018 Ot J43.9 EMPH YSEMA, UNSPECIFIED 05/15/2018 Ot K56.600 PA RTIAL INTESTINAL OBSTRUCTION, UNSPECIF 05/15/2018 Ot L03.115 CE LLULITIS OF RIGHT LOWER LIMB 05/15/2018 Ot L03.116 CE LLULITIS OF LEFT LOWER LIMB 05/15/2018 Ot N17.9 ACUT E KIDNEY FAILURE, UNSPECIFIED 05/15/2018 Ot N18.9 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, UNSPECIFIED 05/15/2018 Ot N39.0 URIN MIKI TRACT INFECTION, SITE NOT SPECIF 05/15/2018 Ot R19.7 DIAR RACHEL, UNSPECIFIED 05/15/2018 Ot T68.XXXA H YPOTHERMIA, INITIAL ENCOUNTER 05/15/2018 Ot W93.8XXA E XPOSURE TO OTH EXCESSIVE COLD OF MAN-MA 05/15/2018 [...] SMO 09/10/2018 NEERAJ VILLA APRN Ot Z79.51 DIRECTOR CLIENT SERVICES (CURRENT) USE OF INHALED STERO 09/10/2018 NEERAJ VILLA APRN Ot Z79.52 DIRECTOR CLIENT SERVICES (CURRENT) USE OF SYSTEMIC STER 09/10/2018 NEERAJ [...] SMO 09/14/2018 NEERAJ VILLA APRN Ot Z79.51 GROUP HOME (CURRENT) USE OF INHALED STERO 09/14/2018 NEERAJ VILLA APRN Ot Z79.52 GROUP HOME (CURRENT) USE OF SYSTEMIC STER 09/14/2018 NEERAJ VILLA APRN Ot Z82.49 FAMILY HX OF ISCHEM HEART DIS AND OTH DI 09/14/2018 NEERAJ VILLA APRN Ot Z85.41 PERSONAL HISTORY OF MALIGNANT NEOPLASM O 09/14/2018 NEERAJ VILLA APRN Ot Z86.73 PRSNL HX OF TIA (TIA), AND CEREB INFRC W 09/14/2018 NEERAJ VILLA APRN Ot Z87.19 PERSONAL HISTORY OF OTHER DISEASES OF TH 09/14/2018 NEERJA VILLA APRN Ot Z87.440 PERSONAL HISTORY OF [...] OTHER SPECIFIED POSTPROCEDURAL STATES 09/18/2018 GREGORIO GONZALES, Paloo GARCIA Ot I08 .1 RHEUMATIC DISORDERS OF [...] SMO 09/29/2018 NEERAJ VILLA APRN Ot Z79.51 DIRECTOR CLIENT SERVICES (CURRENT) USE OF INHALED STERO 09/29/2018 NEERAJ VILLA APRN Ot Z79.52 DIRECTOR CLIENT SERVICES (CURRENT) USE OF SYSTEMIC STER 09/29/2018 NEERAJ [...] .8 ALLERGY STATUS TO OT DRUG/MEDS/BIOL SUB 09/29/2018 [...] F31.9 BIPOLAR DISORDER, UNSPECIFIED 05/04/2019 QUIN JONES MD, Ot F41.9 ANXIETY DISORDER, UNSPECIFIED 05/04/2019 QUIN JONES MD Ot G40.909 EPILEPSY, UNSP, NOT INTRACTABLE, WITHOUT 05/04/2019 QUIN JONES MD Ot I10 ESSENTIAL (PRIMARY) HYPERTENSION 05/04/2019 QUIN JONES MD Ot J44.9 CHRONIC OBSTRUCTIVE PULMONARY DISEASE, U 05/04/2019 QUIN JONES MD, Ot K21.9 GASTRO-ESOPHAGEAL REFLUX DISEASE WITHOUT 05/04/2019 QUIN JONES MD Ot R07.9 CHEST PAIN, UNSPECIFIED 05/04/2019 QUIN JONES MD Ot S81.802A UNSPECIFIED OPEN WOUND, LEFT LOWER LEG, 05/04/2019 QUIN JONES MD Ot W22.8XXA STRIKING AGAINST OR STRUCK BY OTHER OBJE 05/04/2019 QUIN JONES MD Ot Z79.51 GROUP HOME (CURRENT) USE OF INHALED STERO 05/04/2019 QUIN JONES MD, Ot Z82.49 FAMILY HX [...] JONES MD, Ot Z88.8 ALLERGY STATUS TO [facility] DRUG/MEDS/BIOL SUB 05/04/2019 QUIN JONES [...] F41.9 ANXIETY DISORDER, UNSPECIFIED 05/10/2019 QUIN JONES MD Ot G40.909 EPILEPSY, UNSP, [...] STRUCK BY OTHER OBJE 05/10/2019 QUIN JONES MD Ot Z79.51 DIRECTOR CLIENT SERVICES (CURRENT) USE OF INHALED STERO 05/10/2019 QUIN [...] JONES MD Ot Z88.8 ALLERGY STATUS TO [facility] DRUG/MEDS/BIOL SUB 05/10/2019 QUIN JONES MD Ot Z90.710 ACQUIRED ABSENCE OF BOTH CERVIX AND UTER 05/10/2019 QUIN JONES MD Ot Z95.9 PRESENCE OF CARDIAC AND VASCULAR IMPLANT 05/10/2019 QUIN JONES MD Ot Z98.890 OTHER SPECIFIED POSTPROCEDURAL STATES 05/10/2019 QUIN JONES MD Ot Z99.81 DEPENDENCE ON SUPPLEMENTAL OXYGEN 07/05/2019 RAJAN VALDOVINOS DO Ot B19.20 UNSPECIFIED VIRAL 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 07/05/2019 RAJAN VALDOVINOS DO Ot B96.1 KLEBSIELLA PNEUMONIAE THE CAUSE OF DI 07/05/2019 RAJAN VALDOVINOS DO Ot D64.9 ANEMIA, UNSPECIFIED 07/05/2019 RAJAN VALDOVINOS DO Ot E87.2 ACIDOSIS 07/05/2019 HÉCTOR VALDOVINOS DOI Ot E87.6 HYPOKALEMIA 07/05/2019 RAJAN VALDOVINOS DO Ot F15.90 OTHER STIMULANT USE, UNSPECIFIED, UNCOMP 07/05/2019 RAJAN VALDOVINOS DO Ot 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, CIGARETTES, UNCOMPL 07/05/2019 RAJAN VALDOVINOS DO Ot F31.9 BIPOLAR DISORDER, UNSPECIFIED 07/05/2019 RAJAN VALDOVINOS DO Ot F41.9 ANXIETY DISORDER, UNSPECIFIED 07/05/2019 RAJAN VALDOVINOS DO Ot G40.90 9 EPILEPSY, UNSP, NOT INTRACTABLE, WITHOUT 07/05/2019 VALDOVINOS DO, RAJAN Ot I10 ESSENTIAL (PRIMARY) HYPERTENSION 07/05/2019 VALDOVINOS DO, RAJAN Ot I38 ENDOCARDITIS, VALVE UNSPECIFIED 07/05/2019 VALDOVINOS DO, RAJAN Ot 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 07/05/2019 VALDOVINOS DO, RAJAN Ot I95.9 HYPOTENSION, UNSPECIFIED 07/05/2019 VALDOVINOS DO, RAJAN Ot J44.9 CHRONIC OBSTRUCTIVE PULMONARY DISEASE, U 07/05/2019 VALDOVINOS DO, RAJAN Ot J96.00 ACUTE RESPIRATORY FAILURE, UNSP W HYPOXI 07/05/2019 VALDOVINOS DO, RAJAN Ot K21.9 GASTRO-ESOPHAGEAL REFLUX DISEASE WITHOUT 07/05/2019 VALDOVINOS DO, RAJAN Ot M19.91 PRIMARY OSTEOARTHRITIS, UNSPECIFIED SITE 07/05/2019 VALDOVINOS DO, RAJAN Ot N39.0 URINARY TRACT INFECTION, SITE NOT SPECIF 07/05/2019 VALDOVINOS DO, RAJAN Ot R41.82 ALTERED MENTAL STATUS, UNSPECIFIED 07/05/2019 VALDOVINOS DO, RAJAN Ot T43.62 1A POISONING BY AMPHETAMINES, ACCIDENTAL (U 07/05/2019 VALDOVINOS DO, RAJAN Ot Z22.32 2 CARRIER OR SUSPECTED CARRIER OF METHICIL 07/05/2019 ARUNA DO, RAJAN Ot Z87.82 0 PERSONAL HISTORY OF TRAUMATIC BRAIN INJU 07/05/2019 ARUNA DO, RAJAN Ot Z90.71 0 ACQUIRED ABSENCE OF BOTH CERVIX AND UTER 07/05/2019 VALDOVINOS DO, RAJAN Ot Z90.72 2 ACQUIRED ABSENCE OF OVARIES, BILATERAL 07/10/2019 ARUNA DO, RAJAN Ot D64.9 ANEMIA, UNSPECIFIED 07/10/2019 VALDOVINOS DO, RAJAN Ot E86.0 DEHYDRATION 07/10/2019 VALDOVINOS DO, RAJAN Ot F15.10 OTHER STIMULANT ABUSE, UNCOMPLICATED 07/10/2019 VALDOVINOS DO, RAJAN Ot 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, CIGARETTES, UNCOMPL 07/10/2019 VALDOVINOS DO, RAJAN Ot F31.9 BIPOLAR DISORDER, UNSPECIFIED 07/10/2019 VALDOVINOS DO, RAJAN Ot F41.9 ANXIETY DISORDER, UNSPECIFIED 07/10/2019 VALDOVINOS DO, RAJAN Ot G40.90 9 EPILEPSY, UNSP, NOT INTRACTABLE, WITHOUT 07/10/2019 VALDOVINOS DO, RAJAN Ot I10 ESSENTIAL (PRIMARY) HYPERTENSION 07/10/2019 VALDOVINOS DO, RAJAN Ot I16.0 HYPERTENSIVE URGENCY 07/10/2019 VALDOVINOS DO, RAJAN Ot I21.A1 MYOCARDIAL INFARCTION TYPE 2 07/10/2019 VALDOVINOS DO, RAJAN Ot I25.10 ATHSCL HEART DISEASE OF [place] CORONARY 07/10/2019 VALDOVINOS DO, RAJAN Ot I38 ENDOCARDITIS, VALVE UNSPECIFIED 07/10/2019 VALDOVINOSRIKKI LANGE RAJAN Ot J44.9 CHRONIC OBSTRUCTIVE PULMONARY DISEASE, U 07/10/2019 VALDOVINOS DO, RAJAN Ot K21.9 GASTRO-ESOPHAGEAL REFLUX DISEASE WITHOUT 07/10/2019 VALDOVINOS DO, RAJAN Ot K56.7 ILEUS, UNSPECIFIED 07/10/2019 VALDOVINOS DO, RAJAN Ot N17.9 ACUTE KIDNEY FAILURE, UNSPECIFIED 07/10/2019 VALDOVINOS DO RAJAN Ot R07.9 CHEST PAIN, UNSPECIFIED 07/10/2019 VALDOVINOS DO, RAJAN Ot R78.89 FINDING OF OTH SUBSTANCES, [...] OTHER STIMULANT ABUSE, UNCOMPLICATED 08/17/2019 KWAKU GAONA MD, Ot F17.2 10 NICOTINE DEPENDENCE, CIGARETTES, UNCOMPL 08/17/2019 KWAKU GAONA MD Ot F31.9 BIPOLAR DISORDER, UNSPECIFIED 08/17/2019 KWAKU GAONA MD, Ot F41.9 ANXIETY DISORDER, UNSPECIFIED 08/17/2019 KWAKU GAONA MD, Ot G40.9 09 EPILEPSY, UNSP, NOT INTRACTABLE, WITHOUT 08/17/2019 KWAKU GAONA MD Ot I16.0 HYPERTENSIVE URGENCY 08/17/2019 KWAKU GAONA MD, Ot I38 ENDOCARDITIS, VALVE UNSPECIFIED 08/17/2019 KWAKU GAONA MD, Ot 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 08/27/2019 MATTHEW DAVID MD Ot E87 .2 ACIDOSIS 08/27/2019 MATTHEW DAVID MD, Ot E87 .5 HYPERKALEMIA 08/27/2019 MATTHEW DAVID MD Ot F15.10 OTHER STIMULANT ABUSE, UNCOMPLICATED 08/27/2019 MATTHEW DAVID MD, Ot F17.210 NICOTINE DEPENDENCE, CIGARETTES, UNCOMPL 08/27/2019 [...] MD, Ot I25.10 ATHSCL HEART DISEASE OF [place] CORONARY 08/27/2019 MATTHEW DAVID MD, Ot I25 .2 OLD MYOCARDIAL INFARCTION 08/27/2019 MATTHEW DAVID MD, Ot I34 .0 NONRHEUMATIC MITRAL (VALVE) INSUFFICIENC 08/27/2019 MATTHEW DAVID MD, Ot I42 .8 OTHER CARDIOMYOPATHIES 08/27/2019 MATTHEW DAVID MD, Ot I50 .9 HEART FAILURE, UNSPECIFIED 08/27/2019 MATTHEW DAVID MD, Ot 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 INFRC AFFECT 08/27/2019 MATTHEW DAVID MD, Ot I95 .9 HYPOTENSION, UNSPECIFIED 08/27/2019 MATTHEW [...] 08/27/2019 MATTHEW DAVID MD, Ot Z79.899 OTHER GROUP HOME (CURRENT) DRUG THERAPY 08/27/2019 MATTHEW DAVID MD, Ot Z87.820 PERSONAL HISTORY OF TRAUMATIC BRAIN INJU 08/27/2019 MATTHEW DAVID MD, Ot Z91.19 PATIENT'S NONCOMPLIANCE W [facility] MEDICAL TR 08/27/2019 MATTHEW DAVID MD, Ot Z99.81 DEPENDENCE ON SUPPLEMENTAL OXYGEN 08/28/2019 MATTHEW DAVID MD, Ot B19.20 UNSPECIFIED VIRAL 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 08/28/2019 MATTHEW DAVID MD, Ot D63 .8 ANEMIA IN OTHER CHRONIC DISEASES CLASSIF 08/28/2019 MATTHEW DAVID MD, Ot E11.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 08/28/2019 MATTHEW DAVDI MD Ot E87 .2 ACIDOSIS 08/28/2019 MATTHEW [...] HRT FAIL AND ST 08/28/2019 MATTHEW DAVID MD, Ot I25.10 ATHSCL HEART DISEASE OF [place] CORONARY 08/28/2019 MATTHEW DAVID MD, Ot I25 .2 OLD MYOCARDIAL INFARCTION 08/28/2019 MATTHEW DAVID MD Ot I34 .0 NONRHEUMATIC MITRAL (VALVE) INSUFFICIENC 08/28/2019 MATTHEW DAVID MD, Ot I42 .8 OTHER CARDIOMYOPATHIES 08/28/2019 MATTHEW DAVID MD, Ot I50 .9 HEART FAILURE, UNSPECIFIED 08/28/2019 MATTHEW DAVID MD Ot 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 INFRC AFFECT 08/28/2019 JOANNMATTHEW VILLASEÑOR MD, Ot I95 .9 HYPOTENSION, UNSPECIFIED 08/28/2019 MATTHEW [...] 08/28/2019 MATTHEW DAVID MD, Ot Z79.899 OTHER DIRECTOR CLIENT SERVICES (CURRENT) DRUG THERAPY 08/28/2019 MATTHEW DAVID MD, Ot Z87.820 PERSONAL HISTORY OF TRAUMATIC BRAIN INJU 08/28/2019 MATTHEW DAVID MD, Ot Z91.19 PATIENT'S NONCOMPLIANCE W [facility] MEDICAL TR 08/28/2019 MATTHEW DAVID [...] MD, Ot I25.10 ATHSCL HEART DISEASE OF [place] CORONARY 08/29/2019 MATTHEW DAVID MD, Ot I25 [...] 08/29/2019 MATTHEW DAVID MD, Ot Z79.899 OTHER GROUP HOME (CURRENT) DRUG THERAPY 08/29/2019 MATTHEW DAVID MD, Ot Z87.820 PERSONAL HISTORY OF TRAUMATIC BRAIN INJU 08/29/2019 MATTHEW DAVID MD, Ot Z91.19 PATIENT'S NONCOMPLIANCE W [facility] MEDICAL TR 08/29/2019 MATTHEW DAVID MD, Ot Z99.81 DEPENDENCE ON SUPPLEMENTAL OXYGEN 08/29/2019 MATTHEW DAVID MD, Ot B19.20 UNSPECIFIED VIRAL 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 08/29/2019 MATTHEW DAVID MD, Ot D63 .8 ANEMIA IN OTHER CHRONIC DISEASES CLASSIF 08/29/2019 MATTHEW DAVID MD Ot E11.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 08/29/2019 MATTHEW DAVID MD, Ot E83.39 OTHER DISORDERS OF PHOSPHORUS METABOLISM 08/29/2019 MATTHEW DAVID MD Ot E87 .2 ACIDOSIS 08/29/2019 MATTHEW DAVID MD, Ot E87 .5 HYPERKALEMIA 08/29/2019 MATTHEW DAVID MD, Ot F15.10 OTHER STIMULANT ABUSE, UNCOMPLICATED 08/29/2019 MATTHEW DAVID MD Ot F17.210 NICOTINE DEPENDENCE, CIGARETTES, UNCOMPL 08/29/2019 MATTHEW DAVID MD Ot F31 .9 BIPOLAR DISORDER, UNSPECIFIED 08/29/2019 MATTHEW DAVID MD, Ot F41 .9 ANXIETY DISORDER, UNSPECIFIED 08/29/2019 MATTHEW DAVID MD Ot G40.909 EPILEPSY, UNSP, NOT INTRACTABLE, WITHOUT 08/29/2019 MATTHEW DAVID MD, Ot G43.909 MIGRAINE, UNSP, NOT INTRACTABLE, WITHOUT 08/29/2019 MATTHEW DAVID MD Ot I13 .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90 UNSPECIFIED OSTEOARTHRITIS, UNSPECIFIED 09/18/2019 ARUNA LANGE RAJAN Ot M54.2 CERVICALGIA 09/18/2019 ARUNA LANGE RAJAN Ot N17.9 ACUTE KIDNEY FAILURE, UNSPECIFIED 09/18/2019 ARUNA LANGE RAJAN Ot N18.9 CHRONIC KIDNEY DISEASE, UNSPECIFIED 09/18/2019 ARUNA LANGE RAJAN Ot Z79.82 DIRECTOR CLIENT SERVICES (CURRENT) USE OF ASPIRIN 09/18/2019 ARUNA LANGE [...] APRN Ot I25.10 ATHSCL HEART DISEASE OF [place] CORONARY 10/09/2019 NEERAJ VILLA APRN Ot I25 .2 OLD MYOCARDIAL INFARCTION 10/09/2019 NEERAJ VILLA APRN Ot J44 .9 CHRONIC OBSTRUCTIVE PULMONARY DISEASE, U 10/09/2019 NEERAJ VILLA APRN Ot K21 .9 GASTRO-ESOPHAGEAL REFLUX DISEASE WITHOUT 10/09/2019 NEERAJ VILLA APRN Ot R56 .9 UNSPECIFIED CONVULSIONS 10/09/2019 NEERAJ VILLA APRN Ot Z77.22 CNTCT W AND EXPSR TO ENVIRON TOBACCO SMO 10/09/2019 NEERAJ VILLA APRN Ot Z79.82 GROUP HOME (CURRENT) USE OF ASPIRIN 10/09/2019 NEERAJ [...] .8 ALLERGY STATUS TO OT DRUG/MEDS/BIOL SUB 10/09/2019 NEERAJ VILLA APRN, Ot Z90.710 ACQUIRED ABSENCE OF BOTH CERVIX [...] APRN Ot I25.10 ATHSCL HEART DISEASE OF [place] CORONARY 10/12/2019 NEERAJ VILLA APRN Ot I25 .2 OLD MYOCARDIAL INFARCTION 10/12/2019 NEERAJ VILLA APRN, Ot J44 .9 CHRONIC OBSTRUCTIVE PULMONARY DISEASE, U 10/12/2019 NEERAJ VILLA APRN Ot K21 .9 GASTRO-ESOPHAGEAL REFLUX DISEASE WITHOUT 10/12/2019 NEERAJ VILLA APRN Ot R56 .9 UNSPECIFIED CONVULSIONS 10/12/2019 NEERAJ VILLA APRN Ot Z77.22 CNTCT W AND EXPSR TO ENVIRON TOBACCO SMO 10/12/2019 NEERAJ VILLA APRN Ot Z79.82 DIRECTOR CLIENT SERVICES (CURRENT) USE OF ASPIRIN 10/12/2019 NEERAJ VILLA [...] HISTORY OF URINARY CALCULI 10/12/2019 NEERAJ VILLA APRN, Ot Z87.820 PERSONAL HISTORY OF TRAUMATIC BRAIN INJU 10/12/2019 NEERAJ VILLA APRN Ot Z87.891 PERSONAL HISTORY OF NICOTINE DEPENDENCE 10/12/2019 NEERAJ VILLA 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 Ot Z88 .8 ALLERGY STATUS TO OTH DRUG/MEDS/BIOL SUB 10/12/2019 NEERAJ VILLA APRN Ot Z90.710 ACQUIRED ABSENCE OF BOTH CERVIX AND UTER 10/12/2019 NEERAJ VILLA 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 10 ATHSCL HEART DISEASE OF [place] CORONARY 10/28/2019 MICHAEL BURRELL MD Ot I25. 2 OLD MYOCARDIAL INFARCTION 10/28/2019 MICHAEL BURRELL MD Ot J44. 9 CHRONIC OBSTRUCTIVE PULMONARY DISEASE, U 10/28/2019 MICHAEL BURRELL MD Ot K21. 9 GASTRO-ESOPHAGEAL REFLUX DISEASE WITHOUT 10/28/2019 IMCHAEL BURRELL MD Ot R53. 1 WEAKNESS 10/28/2019 MICHAEL BURRELL MD Ot Z77. 22 CNTCT W AND EXPSR TO ENVIRON TOBACCO SMO 10/28/2019 MICHAEL BURRELL MD Ot Z79. 82 DIRECTOR CLIENT SERVICES (CURRENT) USE OF ASPIRIN 10/28/2019 MICHAEL BURRELL MD Ot Z82. 49 FAMILY HX OF ISCHEM HEART DIS AND OTH DI 10/28/2019 MICHAEL BURRELL MD Ot Z85. 41 PERSONAL HISTORY OF MALIGNANT NEOPLASM O 10/28/2019 MICHAEL BURRELL MD, Ot Z86. 73 PRSNL HX OF TIA (TIA), AND CEREB INFRC W 10/28/2019 MICHAEL BURRELL MD, Ot Z87.440 PERSONAL HISTORY OF URINARY (TRACT) INFE 10/28/2019 MICHAEL BURRELL MD Ot Z87.442 PERSONAL HISTORY OF URINARY CALCULI 10/28/2019 MICHAEL BURRELL MD Ot Z88. 8 ALLERGY STATUS TO [facility] DRUG/MEDS/BIOL SUB 10/28/2019 MICHAEL BURRELL MD Ot [...] Ot I25. 10 ATHSCL HEART DISEASE OF [place] CORONARY 11/01/2019 MICHAEL BURRELL MD Ot I25. [...] 11/01/2019 MICHAEL BURRELL MD, Ot Z79. 82 DIRECTOR CLIENT SERVICES (CURRENT) USE OF ASPIRIN 11/01/2019 MICHAEL BURRELL [...] MD, Ot Z88. 8 ALLERGY STATUS TO [facility] DRUG/MEDS/BIOL SUB 11/01/2019 MICHAEL BURRELL MD, Ot [...] MD Ot E86.0 DEHYDRATION 12/01/2019 JEANIE MERINO MD, Ot F15.10 OTHER STIMULANT ABUSE, UNCOMPLICATED 12/01/2019 JEANIE MERINO MD Ot F31.9 BIPOLAR DISORDER, UNSPECIFIED 12/01/2019 JEANIE MERINO MD, Ot F41.9 ANXIETY DISORDER, UNSPECIFIED 12/01/2019 JEANIE MERINO MD, Ot G40.909 EPILEPSY, UNSP, NOT INTRACTABLE, WITHOUT 12/01/2019 JEANIE MERINO MD Ot I12.9 HYPERTENSIVE CHRONIC KIDNEY DISEASE W ST 12/01/2019 JEANIE MERINO MD, Ot I25.10 ATHSCL HEART DISEASE OF [place] CORONARY 12/01/2019 JEANIE MERINO MD, Ot I25.2 [...] 2 DIABETES W DIABETIC PERIPHERAL AN 12/01/2019 SANDNESS MD, JEANIE M Ot E11.65 TYPE 2 DIABETES MELLITUS WITH [...] MD, Ot I25.10 ATHSCL HEART DISEASE OF [place] CORONARY 12/01/2019 JEANIE MERINO MD, Ot I25.2 [...] MD, Ot I25.10 ATHSCL HEART DISEASE OF [place] CORONARY 12/01/2019 JEANIE MERINO MD Ot I25.2 [...] Ot R41.82 ALTERED MENTAL STATUS, UNSPECIFIED 12/01/2019 JEANEI MERINO MD Ot Z66 DO NOT RESUSCITATE [...] MD Ot E86.0 DEHYDRATION 12/01/2019 JEANIE MERINO MD, Ot F15.10 OTHER STIMULANT ABUSE, UNCOMPLICATED 12/01/2019 JEANIE MERINO MD Ot F31.9 BIPOLAR DISORDER, UNSPECIFIED 12/01/2019 JEANIE MERINO MD, Ot F41.9 ANXIETY DISORDER, UNSPECIFIED 12/01/2019 JEANIE MERINO MD, Ot G40.909 EPILEPSY, UNSP, NOT INTRACTABLE, WITHOUT 12/01/2019 JEANIE MERINO MD, Ot I12.9 HYPERTENSIVE CHRONIC KIDNEY DISEASE W ST 12/01/2019 JEANIE MERINO MD, Ot I25.10 ATHSCL HEART DISEASE OF [place] CORONARY 12/01/2019 JEANIE MERINO MD, Ot I25.2 [...] MD Ot E86.0 DEHYDRATION 12/02/2019 JEANIE MERINO MD, [...] MD Ot I25.10 ATHSCL HEART DISEASE OF [place] CORONARY 12/02/2019 JEANIE MERINO MD, Ot I25.2 [...] MD Ot E86.0 DEHYDRATION 12/02/2019 JEANIE MERINO MD, [...] MD Ot I25.10 ATHSCL HEART DISEASE OF [place] CORONARY 12/02/2019 JEANIE MERINO MD Ot I25.2 [...] PERSONAL HISTORY OF OTHER INFECTIOUS AND 12/02/2019 EJANIE MERINO MD, Ot Z86.73 PRSNL HX OF [...] MD, Ot I25.10 ATHSCL HEART DISEASE OF [place] CORONARY 12/03/2019 JEANIE MERINO MD, Ot I25.2 [...] MD, Ot I25.10 ATHSCL HEART DISEASE OF [place] CORONARY 12/03/2019 JEANIE MERINO MD, Ot I25.2 [...] PERSONAL HISTORY OF TRAUMATIC BRAIN INJU 12/04/2019 SANDNESS MD, JEANIE M Ot D63.8 ANEMIA IN OTHER CHRONIC DISEASES [...] Ot F41.9 ANXIETY DISORDER, UNSPECIFIED 12/04/2019 JEANIE EMRINO MD, Ot G40.909 EPILEPSY, UNSP, NOT INTRACTABLE, WITHOUT 12/04/2019 JEANIE MERINO MD, Ot I12.9 HYPERTENSIVE CHRONIC KIDNEY DISEASE W ST 12/04/2019 JEANIE MERINO MD Ot I25.10 ATHSCL HEART DISEASE OF [place] CORONARY 12/04/2019 JEANIE MERINO MD Ot I25.2 OLD MYOCARDIAL INFARCTION 12/04/2019 JEANIE MERINO MD Ot I42.9 CARDIOMYOPATHY, UNSPECIFIED 12/04/2019 JEANIE MEIRNO MD, Ot J44.9 CHRONIC OBSTRUCTIVE PULMONARY DISEASE, U 12/04/2019 JEANIE MERINO MD, Ot K21.9 GASTRO-ESOPHAGEAL REFLUX DISEASE WITHOUT 12/04/2019 JEANIE MERINO MD Ot M19.91 PRIMARY OSTEOARTHRITIS, UNSPECIFIED SITE 12/04/2019 JEANIE MERINO MD Ot M54.9 DORSALGIA, UNSPECIFIED 12/04/2019 JEANIE MERINO [...] MD, Ot I25.10 ATHSCL HEART DISEASE OF [place] CORONARY 12/04/2019 JEANIE MERINO MD, Ot I25.2 [...] Z87.891 PERSONAL HISTORY OF NICOTINE DEPENDENCE 01/08/2020 SANTHOSH LOWE MD Ot E11.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 01/08/2020 SANTHOSH LOWE MD Ot F31.9 BIPOLAR DISORDER, UNSPECIFIED 01/08/2020 SANTHOSH LOWE MD Ot F41.9 ANXIETY DISORDER, UNSPECIFIED 01/08/2020 CHRISSY GONZALES, SANTHOSH Castellano Ot G40.909 EPILEPSY, UNSP, NOT INTRACTABLE, WITHOUT 01/08/2020 CHRISSY GONZALES, SANTHOSH Castellano Ot I10 ESSENTIAL (PRIMARY) HYPERTENSION 01/08/2020 SANTHOSH LOWE MD Ot I25.10 ATHSCL HEART DISEASE OF [place] CORONARY 01/08/2020 SANTHOSH LOWE MD Ot I25.2 OLD MYOCARDIAL INFARCTION 01/08/2020 CHRISSY GONZALES, SANTHOSH Castellano Ot I42.9 CARDIOMYOPATHY, UNSPECIFIED 01/08/2020 CHRISSY GONZALES, SANTHOSH Castellano Ot I95.9 HYPOTENSION, UNSPECIFIED 01/08/2020 CHRISSY GONZALES, SANTHOSH Castellano Ot J44.9 CHRONIC OBSTRUCTIVE PULMONARY DISEASE, U [...] MD Ot I25.10 ATHSCL HEART DISEASE OF [place] CORONARY 01/11/2020 SANTHOSH LOWE MD Ot I25.2 [...] Valdovinos Ot D64. 9 ANEMIA, UNSPECIFIED 01/12/2020 INDRA GONZALES, MICHAEL Valdovinos Ot E11. 9 TYPE 2 DIABETES MELLITUS WITHOUT COMPLIC 01/12/2020 INDRA GONZALES, MICHAEL Valdovinos Ot F31. 9 BIPOLAR DISORDER, UNSPECIFIED 01/12/2020 INDRA GONZALES, MICHAEL Valdovinos Ot F41. 9 ANXIETY DISORDER, UNSPECIFIED 01/12/2020 MICHAEL BURRELL MD, Ot G40.909 EPILEPSY, UNSP, NOT INTRACTABLE, WITHOUT 01/12/2020 MICHAEL BURRELL MD, Ot I10 ESSENTIAL (PRIMARY) HYPERTENSION 01/12/2020 MICHAEL BURRELL MD, Ot I25. 10 ATHSCL HEART DISEASE OF [place] CORONARY 01/12/2020 MICHAEL BURRELL MD, Ot I25. [...] 01/12/2020 MICHAEL BURRELL MD, Ot Z79. 82 DIRECTOR CLIENT SERVICES (CURRENT) USE OF ASPIRIN 01/12/2020 MICHAEL BURRELL [...] 8 ALLERGY STATUS TO OT DRUG/MEDS/BIOL SUB 01/12/2020 MICHAEL BURRELL MD, Ot Z90.710 ACQUIRED ABSENCE OF BOTH CERVIX AND UTER 01/12/2020 MICHAEL BURRELL MD, Ot Z90. 89 ACQUIRED ABSENCE OF OTHER ORGANS 02/10/2020 MATTHEW DAVID MD Ot F15.10 OTHER STIMULANT ABUSE, UNCOMPLICATED 02/10/2020 MATTHEW DAVID MD, Ot F17.210 NICOTINE DEPENDENCE, CIGARETTES, UNCOMPL 02/10/2020 MATTHEW DAVID MD, Ot G40.909 EPILEPSY, UNSP, NOT INTRACTABLE, WITHOUT 02/10/2020 MATTHEW DAVID MD Ot I10 ESSENTIAL (PRIMARY) HYPERTENSION 02/10/2020 MATTHEW DAVID MD Ot I25.10 ATHSCL HEART DISEASE OF [place] CORONARY 02/10/2020 MATTHEW DAVID MD, Ot I25 [...] DISEASE, UNSPECIFIED 02/10/2020 MATTHEW DAVID MD, Ot N39 .0 URINARY TRACT INFECTION, SITE NOT SPECIF 02/10/2020 MATTHEW DAVID MD Ot R40 .0 SOMNOLENCE 02/10/2020 MATTHEW DAVID MD Ot Z66 DO NOT RESUSCITATE 02/10/2020 MATTHEW DAVID MD Ot Z86.73 PRSNL HX OF TIA (TIA), AND CEREB INFRC W 02/10/2020 MATTHEW DAVID MD Ot Z87.820 PERSONAL HISTORY OF TRAUMATIC BRAIN INJU 02/10/2020 MATTHEW DAVID MD Ot Z91.14 PATIENT'S [...] MD Ot I25.10 ATHSCL HEART DISEASE OF [place] CORONARY 02/10/2020 MATTHEW DAVID MD, Ot I25 [...] BOTH CERVIX AND UTER 02/10/2020 MATTHEW DAVID MD Ot Z90.722 ACQUIRED ABSENCE OF OVARIES, BILATERAL 02/10/2020 MATTHEW DAVID MD, Ot Z90.89 ACQUIRED ABSENCE OF OTHER ORGANS 02/10/2020 MATTHEW DAVID MD, Ot Z91.14 PATIENT'S [...] APRN Ot I25.10 ATHSCL HEART DISEASE OF [place] CORONARY 02/13/2020 NEERAJ VILLA APRN Ot I25 .2 OLD MYOCARDIAL INFARCTION 02/13/2020 NEERAJ VILLA APRN, Ot J44 .9 CHRONIC OBSTRUCTIVE PULMONARY DISEASE, U 02/13/2020 NEERAJ VILLA APRN Ot K21 .9 GASTRO-ESOPHAGEAL REFLUX DISEASE WITHOUT 02/13/2020 NEERAJ VILLA APRN Ot R56 .9 UNSPECIFIED CONVULSIONS 02/13/2020 NEERAJ VILLA APRN Ot Z77.22 CNTCT W AND EXPSR TO ENVIRON TOBACCO SMO 02/13/2020 NEERAJ VILLA APRN Ot Z79.82 GROUP HOME (CURRENT) USE OF ASPIRIN 02/13/2020 NEERAJ [...] Z90.89 ACQUIRED ABSENCE OF OTHER ORGANS 05/02/2020 GREGORIO GONZALES, Paolo GARCIA Ot 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 05/02/2020 Paolo PERKINS MD Ot I27.20 PULMONARY HYPERTENSION, UNSPECIFIED 05/02/2020 Paolo PERKINS MD Ot I42 .8 OTHER CARDIOMYOPATHIES 05/02/2020 Paolo PERKINS MD Ot N18 .9 CHRONIC KIDNEY DISEASE, UNSPECIFIED 05/02/2020 Paolo PERKINS MD Ot 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 05/02/2020 Paolo PERKINS MD Ot Z11 .2 ENCOUNTER [...] MD Ot I25.10 ATHSCL HEART DISEASE OF [place] CORONARY 05/03/2020 QUIN JONES MD Ot I25.2 OLD MYOCARDIAL INFARCTION 05/03/2020 QUIN JONES MD Ot I42.9 CARDIOMYOPATHY, UNSPECIFIED 05/03/2020 QUIN JONES MD Ot K21.9 GASTRO-ESOPHAGEAL REFLUX DISEASE WITHOUT 05/03/2020 QUIN JONES MD Ot M19.90 UNSPECIFIED OSTEOARTHRITIS, UNSPECIFIED 05/03/2020 QUIN JONES MD Ot Z79.899 OTHER DIRECTOR CLIENT SERVICES (CURRENT) DRUG THERAPY 05/03/2020 QUIN JONES MD Ot Z85.41 PERSONAL HISTORY OF MALIGNANT NEOPLASM O 05/03/2020 QUIN JOENS MD Ot Z86.73 PRSNL HX OF TIA (TIA), AND CEREB INFRC W 05/03/2020 QUIN JONES MD Ot Z87.19 PERSONAL HISTORY OF OTHER DISEASES OF TH 05/03/2020 QUIN JONES MD Ot E11.51 TYPE [...] MD Ot I25.10 ATHSCL HEART DISEASE OF [place] CORONARY 05/03/2020 QUIN JONES MD Ot I25.2 OLD MYOCARDIAL INFARCTION 05/03/2020 QUIN JONES MD Ot I42.9 CARDIOMYOPATHY, UNSPECIFIED 05/03/2020 QUIN JONES MD Ot K21.9 GASTRO-ESOPHAGEAL REFLUX DISEASE WITHOUT 05/03/2020 QUIN JONES MD Ot M19.90 UNSPECIFIED OSTEOARTHRITIS, UNSPECIFIED 05/03/2020 QUIN JONES MD Ot Z79.899 OTHER GROUP HOME (CURRENT) DRUG THERAPY 05/03/2020 QUIN JONES MD Ot Z85.41 PERSONAL HISTORY OF MALIGNANT NEOPLASM O 05/03/2020 QUIN JONES MD Ot Z86.73 PRSNL HX OF TIA (TIA), AND CEREB INFRC W 05/03/2020 QUIN JONES MD Ot Z87.19 PERSONAL HISTORY OF OTHER DISEASES OF TH 05/03/2020 QUIN JONES MD Ot Z87.820 PERSONAL HISTORY OF TRAUMATIC BRAIN INJU 05/29/2020 MICHAEL BURRELL MD Ot F17.210 NICOTINE DEPENDENCE, CIGARETTES, UNCOMPL 05/29/2020 MICHAEL BURRELL MD Ot F31. 9 BIPOLAR DISORDER, UNSPECIFIED 05/29/2020 MICHAEL BURRELL MD Ot F41. 9 ANXIETY DISORDER, UNSPECIFIED 05/29/2020 INDRA GONZALES, MICHAEL Valdovinos Ot G40.909 EPILEPSY, UNSP, NOT INTRACTABLE, WITHOUT 05/29/2020 INDRA GONZALES, MICHAEL Valdovinos Ot G89. 29 OTHER CHRONIC PAIN 05/29/2020 MICHAEL BURRELL MD Ot I10 ESSENTIAL (PRIMARY) HYPERTENSION 05/29/2020 MICHAEL BURRELL MD Ot I25. 10 ATHSCL HEART DISEASE OF [place] CORONARY 05/29/2020 MICHAEL BURRELL MD Ot I25. 2 OLD MYOCARDIAL INFARCTION 05/29/2020 MICHAEL BURRELL MD Ot K21. 9 GASTRO-ESOPHAGEAL REFLUX DISEASE WITHOUT 05/29/2020 MICHAEL BURRELL MD Ot M54. 2 CERVICALGIA 05/29/2020 MICHAEL BURRELL MD Ot M54. 9 DORSALGIA, UNSPECIFIED 05/29/2020 MICHAEL BURRELL MD Ot R56. 9 UNSPECIFIED CONVULSIONS 05/29/2020 MICHAEL BURRELL MD Ot Z82. 49 FAMILY HX OF ISCHEM HEART DIS AND OTH DI 05/29/2020 MICHAEL BURRELL MD Ot Z85. 41 PERSONAL HISTORY OF MALIGNANT NEOPLASM O 05/29/2020 MICHAEL BURRELL MD Ot Z86. 73 PRSNL HX OF TIA (TIA), AND CEREB INFRC W 05/29/2020 MICHAEL BURRELL MD Ot Z88. 8 ALLERGY STATUS TO OTH DRUG/MEDS/BIOL SUB 05/29/2020 MICHAEL BURRELL MD Ot Z91. 14 PATIENT'S OTHER NONCOMPLIANCE WITH MEDIC Procedures Code Description Performed By Per formed On 38.93 VENO US CATHETERIZATION NEC 02/05/2010 53.69 OTH OPEN REP OTH HERNIA OF ANTER ABD W 02/05/2010 Urology Tom Mason 09/16/2012 General S [place], [place] 10/28/2012 69395 ROUT INE VENIPUNCTURE 12/09/2012 16785 CMP 12/09/2012 76539 PHEN OBARBITAL 12/09/2012 09658 TSH 12/09/2012 98835 CBC 12/09/2012 PODIATRY W VIRGILIO HARRISONIN 03/02/2013 37.22 LEFT HEART CARDIAC CATH 05/10/2013 88.53 LT H EART ANGIOCARDIOGRAM 05/10/2013 88.56 MISAEL DENEEN ARTERIOGR-2 CATH 05/10/2013 16569 ECHO 2D 05/21/2013 86.04 OTHE R SKIN SUBQ I D 06/20/2013 Physical W [facility], Mtc 06/29/[address] A BDOMEN & PELVIS W/ & W/O CONTRAST 12/10/2013 37646 OXIMETRY 12/10/2013 25726 ROUT INE VENIPUNCTURE 08/05/2014 40473 CBC 08/05/2014 [id number] GF R CALC (RESULT ONLY) 08/05/2014 98696 CMP 08/05/2014 44574 OXIMETRY 11/28/2014 J1885 BENJAMIN DOL PER 15 MG, INJ KETOROLAC TROMETHAMINE 11/28/2014 43808 EAR LAVAGE 02/02/2015 [id number] IN SERTION OF INFUSION DEV INTO SUP VENA 05/15/2018 [id number] IN SERTION OF ENDOTRACHEAL AIRWAY INTO TR 07/02/2019 [id number] RE SPIRATORY VENTILATION, LESS THAN 24 CO 07/02/2019 [id number] IN SERTION OF ENDOTRACHEAL AIRWAY INTO TR 08/26/2019 [id number] RE SPIRATORY VENTILATION, LESS THAN 24 CO 08/26/2019 [id number] RE SPIRATORY VENTILATION, 24- 96 CONSECUTI 08/26/2019 [id number] IN SERTION OF INFUSION DEV INTO SUP VENA 09/15/2019 [id number] IN SERTION OF TIVAD INTO CHEST SUBCU/FASC 09/15/2019 [id number] IN SERTION OF ENDOTRACHEAL AIRWAY INTO TR 09/17/2019 [id number] RE SPIRATORY VENTILATION, LESS THAN 24 CO [...] culture - 08/05/16 21:25 Bacterial urine culture [id number] NRG COLONY COUNT >100,000/ML NRG FTX;REPORTABLE SENSITIVITY REPORTED 08/07/16 8:10 NR Bacterial susceptibility panel - 6 21:25 Gentamicin [...] 7-25 CREATININE 1.57 mg/dL 0.50-1.05 eGFR NON-AFR. SCOTTISH 36 mL/min/1.73m2 > OR = 60 eGFR [...] culture - 07/02/19 11:04 Bacterial urine culture [id number] NRG COLONY COUNT >100,000/ML NRG FTX;REPORTABLE SUSCEPTIBILITIES [...] OF GROWTH FEW NRG Bacterial sputum culture [id number] NRG Dirithromycin susceptibility test by dis k [...] < mg/dL <10 PHENOBARBITAL - 08/12/19 05:50 [id number] 11.7 % 15.0-40.0 Urine drug screening test [...] Whole blood basic metabolic panel - 11/0 12/01 03:40 Serum or plasma sodium measurement [...] culture - 08/15/19 01:10 Bacterial urine culture [id number] NRG COLONY COUNT 80,000 CFU/ML NRG FTX;REPORTABLE [...] 188.3 pg/mL <100.0 PHENOBARBITAL - 08/26/19 03:55 [id number] 8.0 % 15.0-40.0 Influenza virus A and [...] OF GROWTH Isolated NRG Bacterial blood culture [id number] NRG Methicillin resistant Staphylococcus aur eus (MRSA) [...] INFLUENZA A AND B ANTIGENS BY IA [facility] Bacterial blood culture - 10/27/19 22:42 QUANTITY OF GROWTH . [facility] Bacterial blood culture SEE COMMEN [facility] Complete blood count (CBC) with automate [...] INFLUENZA A AND B ANTIGENS BY IA [facility] Comprehensive metabolic panel - 11/28/19 10:37 [...] or plasma urea nitrogen/creatinine mass ratio [address] [facility] Serum or plasma creatinine measurement w ith calculation of estimated glomerular filtration rate [address] [facility] Serum or plasma glucose measurement (mass/volume) [...] OF GROWTH Isolated NRG Bacterial blood culture [id number] NR FREE TEXT ENTRY 2 SUSCEPTIBILITY REPORTED 12/02/19 11:35 NRG FREE TEXT ENTRY 3 BY RML NRG Bacterial blood culture - 11/28/19 11:05 FREE TEXT EXTERNAL PROBABLE STREPTOCOCCUS GORDONII NRG QUANTITY OF GROWTH Isolated NRG Bacterial blood culture [id number] NR FREE TEXT ENTRY 2 REFER TO [...] culture - 11/28/19 11:20 Bacterial urine culture [id number] NRG COLONY COUNT >100,000/ML NRG FTX;REPORTABLE SUSCEPTIBILITY REPORTED 11/30/19 12: 05 NRG FREE TEXT ENTRY 2 PRELIM RAPID ID TEST AT [facility] 11/29 07:50 NRG FREE TEXT [...] - 11/29/19 11:58 Bacterial blood culture NG NR Bacterial blood culture - 11/29/19 12:20 Bacterial blood culture NG NR Complete blood count (CBC) with automate [...] - 01/08/20 01:30 Bacterial blood culture NG [facility] Bacterial blood culture - 01/08/20 02:17 Bacterial blood culture NG [facility] Bacterial blood culture - 02/05/20 21:00 QUANTITY OF GROWTH . [facility] Bacterial blood culture SEE COMMEN [facility] Blood lactic acid measurement (moles/vol ume) - [...] culture - 02/05/20 21:08 Bacterial urine culture [id number] NRG COLONY COUNT >100,000/ML NRG SUSCEPTIBILITY SUSCEPTIBILITY [...] 1.6 mg/dL 1.6-2.4 PHENOBARBITAL - 02/08/20 20:40 [id number] 24.5 % 15.0-40.0 Automated blood complete blood [...] Status Pt. Type Provider Facility Loc./Unit Complaint [id number] 09/13/2014 14:47:00 ACT Unknown [id number] 02/03/2015 04:27:10 ACT Document Registration [id number] 05/26/2020 14:34:00 16:24:00 DIS Outpatient INDRA GONZALES, MICHAEL Valdovinos [facility] ER SEIZURES [id number] 05/02/2020 12:35:00 14:45:00 DIS Outpatient ROBERT GONZALES, QUIN Villavicencio [facility] ER SEIZURE [id number] 02/05/2020 21:48:00 17:52:00 DIS Inpatient MATTHEW DAVID MD [facility] ICU SEIZURE DISORDER,UNRESPONSIVE,METHAMPHETAMINE USE [id number] 01/08/2020 01:15:00 04:55:00 DIS Emergency CHRISSY GONZALES, SANTHOSH Castellano [facility] ER SEIZURE [id number] 11/28/2019 13:35:00 13:53:00 DIS Inpatient ANGELIQUE GONZALES, JEANIE Boone [facility] ICU ARF, UTI, ABD P AIN [id number] 10/27/2019 21:42:00 03:00:00 DIS Emergency INDRA GONZALES, MICHAEL Valdovinos [facility] ER WEAKNESS [id number] 10/09/2019 14:09:00 17:15:00 DIS Emergency NEERAJ VILLA 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 [facility] ER SEIZURE [id number] 09/14/2019 10:38:00 14:45:00 DIS Inpatient VALDOVINOS DO, RAJAN [facility] ICU SEIZURE; [id number] 08/26/2019 07:23:00 13:46:00 DIS Inpatient JOANN GONZALES, MATTHEW Longoria [facility] 4TH ALTERED MENTAL STATUS;A CUTE ON CHRONIC RESP. FAIL- [id number] 08/12/2019 09:48:00 13:00:00 DIS Inpatient JIMENEZ GONZALES, KWAKU James [facility] 4TH SEIZURE,ACUTE RENAL MARTHA LURE, TROPONIN [id number] 07/07/2019 09:23:00 16:40:00 DIS Inpatient VALDOVINOS DO, RAJAN V [facility] 4TH CHEST PAIN;DEHYDRATION;DIARRHEA,ACUTE RENAL INSUF. [id number] 07/02/2019 14:23:00 15:35:00 DIS Inpatient VALDOVINOS DO, RAJAN V [facility] 4TH AMS, RESPIRATORY FAILUR E, UTI [id number] 05/04/2019 08:39:00 12:59:00 DIS Emergency QUIN JONES MD [facility] ER CHEST PAIN [id number] 09/10/2018 20:19:00 018 21:49:00 DIS Emergency NEERAJ VILLA APRN [facility] ER SEIZURE [id number] 08/27/2018 14:28:00 23:59:59 CLS Preadmit Paolo PERKINS MD [facility] SLEEP LAUREN [id number] 08/20/2018 10:18:00 23:59:59 CLS Outpatient Paolo PERKINS MD [facility] CATH MODERATE TO SEVERE MITR AL REGURGITATION [id number] 08/03/2018 06:30:00 23:59:59 CLS Outpatient Paolo PERKINS MD [facility] SEVERE MITRAL REGURGITA TION BY PRIOR ECHO [id number] 07/24/2018 13:33:00 23:59:59 CLS Outpatient Paolo PERKINS MD [facility] CARD I34.0 MITRAL REGURGITAT ION [id number] 07/17/2018 07:52:00 23:59:59 CLS Outpatient Paolo PERKINS MD [facility] LAB N18.9 [id number] 02/20/2018 22:00:00 018 18:50:00 DIS Inpatient DEGROOT DO, GAVI K V [facility] 4TH ELEVATED TROPONIN,ELEVA BRINA D- DIMER,SOA [id number] 02/03/2018 22:20:00 018 01:26:00 DIS Emergency MICHAEL BURRELL MD Via [facility] ER CP/SEIZURE [id number] 06/18/2017 18:03:00 017 21:14:00 DIS Emergency STAR ORTIZ Via [facility] ER LT LEG SORE/BRUISING [id number] 03/06/2017 09:45:00 017 11:46:00 DIS Emergency QUIN JONES MD [facility] ER ABD PAIN [id number] 11/23/2016 14:15:00 017 16:00:00 DIS Emergency QUIN JONES MD Via [facility] ER SOA/COUGH/VOMIT ING [id number] 08/05/2016 20:48:00 016 22:20:00 DIS Emergency HOLA BRIGHT DO [facility] ER R LEG WOUND/PAINFUL URI NATION/LOWER BACK PAIN [id number] 01/27/2016 20:37:00 016 02:05:00 DIS Emergency KAILA HOLA LANGE [facility] ER ABD PAIN,N,V,D [id number] 01/27/2016 01:55:00 016 05:47:00 DIS Emergency SANTHOSH LOWE MD [facility] ER L FLANK PAIN [id number] 02/02/2015 15:37:00 015 17:07:00 DIS Emergency STAR ORTIZ [facility] ER PAIN [id number] 01/19/2015 01:46:00 015 04:46:00 DIS Emergency SANTHOSH LOWE MD [facility] ER MERSA FLARING U P [id number] 11/27/2014 20:30:00 015 22:29:00 DIS Emergency STAR ORTIZ [facility] ER BACK PAIN [id number] 06/07/2014 16:31:00 014 14:12:00 DIS Inpatient DEGROOT DO, GAVI K V ia [facility] ICU INTRACTABLE L HIP PAIN, UNABLE TO CARE FOR SELF [id number] 06/05/2014 13:39:00 014 16:45:00 DIS Emergency STAR ORTIZ [facility] ER FALL NECK PAIN AND VALDEMAR K PAIN [id number] 05/23/2014 20:00:00 014 11:35:00 DIS Inpatient JOANN GONZALES, MATTHEW Longoria [facility] ICU CHEST PAIN,COPD EXACERBATION,ELEVATED D-DIMER [id number] 04/09/2014 13:14:00 014 16:26:00 DIS Emergency NEERAJ VILLA 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 [facility] ER ABD PAIN [id number] 04/06/2014 10:52:00 014 11:45:00 DIS Inpatient GAVI DEGROOT DO, V [facility] 4TH RESPIRATORY DISTRESS,HYPOXIA,PNEUMONIA,CHEST PAIN [id number] 03/18/2014 16:36:00 014 18:25:00 DIS Emergency NEERAJ VILLA APRN [facility] ER SOA [id number] 02/04/2014 19:05:00 014 23:17:00 DIS Emergency HOLA BRIGHT DO [facility] ER CHEST PAIN [id number] 11/14/2013 14:21:00 014 18:24:00 DIS Emergency NEERAJ VILLA APRN [facility] ER LOWER BACK PAIN [id number] 09/28/2013 23:45:00 013 02:02:00 DIS Emergency CHRISSY GONZALES, SANTHOSH Castellano [facility] ER CHEST PAIN [id number] 09/15/2013 12:59:00 013 14:32:00 DIS Emergency ROBERT GONZALES, QUIN Villavicencio [facility] ER COUGH [id number] 09/13/2013 15:15:00 013 08:46:00 DIS Inpatient VASILIY GONZALES, ABELARDO Valdovinos [facility] ICU CHEST PAIN, ELEVATED TR OPONIA [id number] 07/29/2013 14:25:00 013 14:49:00 DIS Outpatient BRI VILLASEÑOR [facility] WOUNDCARE LEG ABSCESS [id number] 06/20/2013 00:03:00 013 16:42:00 DIS Inpatient GAVI DEGROOT DO, V [facility] SURGICAL MULTIPLE ABSCESSES [id number] 06/04/2013 12:49:00 23:59:59 CLS Outpatient ABELARDO AMANDA MD [facility] RAD CHF [id number] 06/04/2013 10:53:00 23:59:59 CLS Outpatient ABELARDO AMANDA MD [facility] CARD CHF [id number] 05/30/2013 13:54:00 15:27:00 DIS Emergency CHRISSY GONZALES, SANTHOSH Castellano [facility] ER CHEST PAIN [id number] 05/10/2013 01:14:00 14:24:00 DIS Inpatient JONATHAN GONZALES, NGOC Valdovinos [facility] ICU NSTEMI,CHEST PAIN,HYPER TENSIVE URGENCY [id number] 04/29/2013 14:28:00 23:59:59 CLS Outpatient [id number] 02/05/2020 20:57:00 Document Registration [id number] 05/15/2018 00:10:00 Document Registration [id number] 01/27/2016 05:53:00 Document Registration [id number] 12/01/2014 13:05:00 Document Registration [id number] 12/17/2012 04:30:00 Document Registration [id number] 08/03/2012 03:50:00 Document Registration [id number] 07/23/2012 17:10:00 Document Registration [id number] 05/25/2012 03:15:00 Document Registration [id number] 05/09/2012 19:20:00 Document Registration [id number] 03/28/2012 06:00:00 Document Registration [id number] 10/10/2011 13:00:00 Document Registration [id number] 07/16/2011 01:55:00 Document Registration [id number] 07/02/2011 06:44:00 Document Registration [id number] 04/12/2011 19:39:00 Document Registration [id number] 03/22/2011 02:40:00 Document Registration [id number] 03/19/2011 17:35:00 Document Registration [id number] 03/03/2011 20:58:00 Document Registration [id number] 01/21/2011 21:56:00 Document Registration [id number] 12/28/2010 15:45:00 Document Registration [id number] 11/04/2010 20:43:00 Document Registration [id number] 02/05/2010 04:25:00 Document Registration [id number] 04/29/2017 09:08:00 Document Registration [id number] 09/18/2016 08:45:00 Document Registration [id number] 02/05/2020 21:07:00 21:07:00 CAN [facility] DONAVAN LANGE V [facility] [id number] 02/19/2018 14:28:36 02/19/2018 23:59:5 9 CLS Outpatient BuhlVirgie grier Elliot [id number] 01/31/2015 15:03:00 01/31/2015 23:59: 59 CLS Outpatient KRANTHI PRECIADO MD [id number] 11/28/2014 09:37:00 11/28/2014 23:59: 59 CLS Outpatient TRACEE LANGE APRN [id number] 08/05/2014 14:32:00 08/05/2014 23:59: 59 CLS Outpatient TRACEE LANGE APRN [id number] 07/04/2014 12:54:00 07/04/2014 23:59: 59 CLS Outpatient GAVI DEGROOT DO [id number] 05/02/2014 15:01:00 05/02/2014 23:59: 59 CLS Outpatient GAVI DEGROOT DO [id number] 12/10/2013 14:53:00 12/10/2013 23:59: 59 CLS Outpatient TRACEE LANGE APRN [id number] 09/29/2013 15:37:00 09/29/2013 23:59: 59 CLS Outpatient TRACEE LANGE APRN [id number] 09/18/2013 12:00:00 09/18/2013 23:59: 59 CLS Outpatient TRACEE LANGE APRN [id number] 07/15/2013 14:04:00 07/15/2013 23:59: 59 CLS Outpatient KRANTHI PRECIADO MD [id number] 05/31/2013 09:17:00 05/31/2013 23:59: 59 CLS Outpatient KRANTHI PRECIADO MD [id number] 12/09/2012 17:16:00 12/09/2012 23:59: 59 CLS Outpatient TRACEE LANGE APRN [id number] 10/28/2012 12:04:00 10/28/2012 23:59: 59 CLS Outpatient TRACEE LANGE APRN [id number] 10/19/2012 16:04:00 10/19/2012 23:59: 59 CLS Outpatient [id number] 09/16/2012 15:22:00 09/16/2012 23:59: 59 CLS Outpatient [id number] 08/14/2012 10:30:00 08/14/2012 23:59:5 9 CLS Outpatient KRANTHI PRECIADO MD [id number] 05/21/2013 10:29:00 Document Registration [id number] 03/02/2013 15:46:00 Document Registration [id number] 04/21/2020 09:20:00 04/21/2020 23:59:5 9 CLS Outpatient TRACEE LANGE APRN [facility] [id number] 06/11/2019 13:40:00 Document Registration [id number] 05/05/2019 10:40:00 Document Registration [id number] 11/30/2018 15:40:00 Document Registration [id number] 09/04/2018 11:00:00 Document Registration
[2020-05-30 17:50] VITALS: BP 168/92
== END 2020-05-30 17:57 | disposition home or self-care (01) ==
LOC: EDUNIT# 14:52 → ER 14:53
DX: R56.9 Unspecified convulsions (principal); I25.10 Atherosclerotic heart disease of native coronary artery without angina pectoris; N19 Unspecified kidney failure; I25.2 Old myocardial infarction; I10 Essential (primary) hypertension; Z87.820 Personal history of traumatic brain injury; K21.9 Gastro-esophageal reflux disease without esophagitis; N39.0 Urinary tract infection, site not specified; F31.9 Bipolar disorder, unspecified; Z88.8 Allergy status to other drugs, medicaments and biological substances; Z85.41 Personal history of malignant neoplasm of cervix uteri; Z80.9 Family history of malignant neoplasm, unspecified; Z82.49 Family history of ischemic heart disease and other diseases of the circulatory system
CPT/HCPCS: 80053; 80306; 81000; 82962; 83690; 83735; 85025; 93041; 99285; G0480; 36415; 80320; 93005

== ENCOUNTER 2020-06-07 13:20 | Emergency (ER) | payer MEDICAID ==
[~2020-06-07] VITALS: Ht 160 cm; Wt 77.0 kg
[2020-06-07] MEDS ORDERED: LEVETIRACETAM INJECTION 1,000 MG in NS (IVPB) 100 ML IV SCH (13:30)
[2020-06-07] MEDS ORDERED: LACTATED RINGERS 1,000 ML IV SCH (13:30)
[2020-06-07 13:36] LABS: BASOPHILS % (AUTO) 0 % (0-10); EOSINOPHILS # (AUTO) 0.2 10^3/uL (0.0-0.3); EOSINOPHILS % (AUTO) 3 % (0-10); HEMATOCRIT 37 % (35-52); HEMOGLOBIN 11.9 G/DL (11.5-16.0); LYMPHOCYTES # (AUTO) 2.1 X 10^3 (1.0-4.0); LYMPHOCYTES % (AUTO) 36 % (12-44); MEAN CORPUSCULAR HEMOGLOBIN 28 PG (25-34); MEAN CORPUSCULAR HGB CONC 32 G/DL (32-36); MEAN CORPUSCULAR VOLUME 87 FL (80-99); MONOCYTES # (AUTO) 0.4 X 10^3 (0.0-1.0); MONOCYTES % (AUTO) 6 % (0-12); NEUTROPHILS # (AUTO) 3.2 X 10^3 (1.8-7.8); NEUTROPHILS % (AUTO) 54 % (42-75); PLATELET COUNT 413 10^3/uL (130-400); RED CELL DISTRIBUTION WIDTH 15.2 % (10.0-14.5); WHITE BLOOD COUNT 5.9 10^3/uL (4.3-11.0)
--- NOTE | 2020-06-07 13:36 | ED Neurological Problem ---
General Chief Complaint: Neurological Problems Stated Complaint: SEIZURE Source: patient Exam Limitations: no limitations History of Present Illness Date Seen by Provider: Jun 07, 2020 Time Seen by Provider: 13:25 Initial Comments Patient arrived by EMS with reports of seizure like activity at her AA meeting today. Pt is alert and oriented. Patient does have a known seizure disorder and reports not taking her seizure medicine today. Timing/Duration: 1/2 hour Associated Symptoms: No confusion, No nausea/vomiting; seizures Allergies and Home Medications Allergies Coded Allergies: nitrous oxide (Verified Allergy, Unknown, 06/08/07) Home Medications Acetaminophen 500 Mg Tablet, 1,000 MG PO Q6H PRN for PAIN-MILD, (Reported) Amlodipine Besylate 10 Mg Tablet, 5 MG PO BID, (Reported) TAKES OF A 10MG TAB TWICE DAILY Carvedilol 25 Mg Tab, 25 MG PO BID, (Reported) LAST FILLED 12-17-2019 #60 Clonidine HCl 0.2 Mg Tablet, 0.2 MG PO BID, (Reported) Cyclobenzaprine HCl 10 Mg Tablet, 10 MG PO TID PRN for MUSCLE SPASMS, (Reported) Ergocalciferol (Vitamin D2) 1,250 Mcg Capsule, 1,250 MCG PO WEEK, (Reported) Famotidine 20 Mg Tablet, 20 MG PO BID, (Reported) Hydralazine HCl 100 Mg Tablet, 100 MG PO TID, (Reported) Hydroxyzine HCl 25 Mg Tablet, 25 MG PO BID PRN for ANXIETY, (Reported) Levetiracetam 500 Mg Tablet, 1,000 MG PO BID LAST FILLED 12-07-2019 #120 TAKES 2 (500MG) TABS TWICE DAILY Prescribed by: MATTHEW DAVID on 02/08/20 110 Loratadine 10 Mg Tablet, 10 MG PO DAILY, (Reported) Metoprolol Succinate 100 Mg Tab.er.24h, 100 MG PO DAILY, (Reported) Nitrofurantoin Monohyd/M-Cryst 100 Mg Capsule, 1 TAB PO BID Prescribed by: MATTHEW DAVID on 02/08/20 110 Oxcarbazepine 300 Mg Tablet, 600 MG PO BID LAST FILLED 12-07-2019 #120 TAKES 2 (300MG)TABS TWICE DAILY Prescribed by: MATTHEW DAVID on 02/08/20 1105 Phenobarbital 64.8 Mg Tablet, 129.6 MG PO BID, (Reported) TAKES 2 (64.8MG) TABS TO EQUAL 129.6 Prazosin HCl 1 Mg Capsule, 1 MG PO HS, (Reported) Patient Home Medication List Home Medication List Reviewed: Yes Review of Systems Review of Systems Constitutional: no symptoms reported, see HPI Eyes: No Symptoms Reported, See HPI Ears, Nose, Mouth, Throat: no symptoms reported, see HPI Respiratory: no symptoms reported, see HPI Cardiovascular: no symptoms reported, see HPI Gastrointestinal: no symptoms reported, see HPI Genitourinary: no symptoms reported, see HPI : No Musculoskeletal: no symptoms reported, see HPI Skin: no symptoms reported, see HPI Psychiatric/Neurological: See HPI; Denies Headache Endocrine: No Symptoms Reported, See HPI Hematologic/Lymphatic: No Symptoms Reported, See HPI Past Qiameoa-Bqiycv-Jiuoeh Hx Patient Social History Drug of Choice: + IV METH USE, THC USE Type Used: Cigarettes 2nd Hand Smoke Exposure: No Recent Hopitalizations: No Immunizations Up To Date Tetanus Booster (TDap): Less than 5yrs PED Vaccines UTD: No Date of Pneumonia Vaccine: Jul 13, 2012 Date of Influenza Vaccine: Jul 15, 2019 Seasonal Allergies Seasonal Allergies: No Past Medical History Surgeries: Yes Abdominal, Adenoidectomy, Cardiac, Section, Hysterectomy, Oophorectomy, Tonsillectomy Respiratory: Yes COPD Currently Using CPAP: No Currently Using BIPAP: No Cardiac: Yes Cardiomyopathy, Coronary Artery Disease, Endocarditis, Heart Attack, Hypertension, Peripheral Vascular, Valvular Heart Disease Neurological: Yes Concussion, Seizure Disorder, Stroke, Traumatic Brain Injury 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 Disorders: No Female 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 [employer] History: Hysterectomy, Menopausal Sexually Transmitted Disease: No HIV/AIDS: No Genitourinary: Yes Kidney Infection, Bladder Infection, Kidney Stones, Renal Failure, UTI-Chronic Gastrointestinal: Yes Abdominal Hernia, Gastroesophageal Reflux, Pancreatitis, Hepatitis Musculoskeletal: Yes (CHRONIC NECK AND BACK PAIN; POOR AMBULATION) Arthritis, Chronic Back Pain Endocrine: Yes (HGB AIC WAS 6.5 ON 12/23/18) Diabetes, Non-Insulin dep HEENT: Yes (POOR DENTITION) Loss of Vision: Denies Hearing Impairment: Denies Cancer: No Cervical Psychosocial: Yes (POLYSUBSTANCE ABUSE) Anxiety, Bipolar, Depression Integumentary: No Blood Disorders: Yes (ANEMIA OF CHRONIC DISEASE) Adverse Reaction/Blood Tranf: No Family Medical History Abdominal aortic aneurysm 03 FATHER Alcoholism 03 FATHER 03 MOTHER 09 SISTER 09 SISTER Cancer 03 FATHER Cataract 03 FATHER 03 MOTHER Chest pain 03 MOTHER Family history: Diabetes mellitus 03 MOTHER Family history: Hypertension 03 MOTHER Family history: Thyroid disorder 03 MOTHER Headache 09 SISTER Heart disease 03 MOTHER History of drug abuse 03 FATHER 09 SISTER Myocardial infarction 03 MOTHER No Family History of: [place]'s disease Aphasia Cancer of colon Congenital heart disease Congestive heart failure Cystic fibrosis Dementia Dysphagia Family history: Allergy Family history: Alzheimer's disease Family history: Arthritis Family history: Asthma Family history: Breast disease Family history: Cardiovascular disease Family history: Coronary thrombosis Family history: Gastrointestinal disease Family history: Glaucoma Family history: Osteoporosis Hearing loss Hereditary disease History of - anemia History of - disorder History of - respiratory disease Human immunodeficiency virus (HIV) seropositivity Hypercholesterolemia Infertile Kidney disease Malignant neoplasm of lung Parkinson's disease Prostate cancer Psychotic disorder Seizure disorder Stroke Tuberculosis Visual impairment AAA, Heart Disease, Diabetes Physical Exam Vital Signs Vital Signs - First Documented 06/07/20 13:20 Temp 36.8 Pulse 110 Resp 16 B/P (MAP) 175/104 (127) Pulse Ox 92 O2 Delivery Nasal Cannula O2 Flow Rate 2.00 Capillary Refill : Height, Weight, BMI Height: 5'3.00" Weight: 155lbs. 8.0oz. [id number]; 32.00 BMI Method:Stated General Appearance: WD/WN, no apparent distress Neck: full range of motion, normal inspection Respiratory: lungs clear, normal breath sounds, no respiratory distress, no accessory muscle use Cardiovascular: regular rate, rhythm, no edema Gastrointestinal: normal bowel sounds, non tender, soft Back: normal inspection, no vertebral tenderness Extremities: normal range of motion, non-tender, normal inspection, no pedal edema Neurologic/Psychiatric: alert, oriented x 3 Motor/Sensory: no motor deficit, no sensory deficit Skin: normal color, warm/dry Lymphatic: no adenopathy Procedures/Interventions Date of ETT Placement: Sep 17, 2019 Time of ETT Placement: 1745 Progress/Results/Core Measures Results/Orders Lab Results Laboratory Tests Test 06/07/20 13:23 06/07/20 13:35 Range/Units White Blood Count 5.9 4.3-11.0 10^3/uL Red Blood Count 4.29 L 4.35-5.85 10^6/uL Hemoglobin 11.9 11.5-16.0 G/DL Hematocrit 37 35-52 % Mean Corpuscular Volume 87 80-99 FL Mean Corpuscular Hemoglobin 28 25-34 PG Mean Corpuscular Hemoglobin Concent 32 32-36 G/DL Red Cell Distribution Width 15.2 H 10.0-14.5 % Platelet Count 413 H 130-400 10^3/uL Mean Platelet Volume 10.0 7.4-10.4 FL Neutrophils (%) (Auto) 54 42-75 % Lymphocytes (%) (Auto) 36 12-44 % Monocytes (%) (Auto) 6 0-12 % Eosinophils (%) (Auto) 3 0-10 % Basophils (%) (Auto) 0 0-10 % Neutrophils # (Auto) 3.2 1.8-7.8 X 10^3 Lymphocytes # (Auto) 2.1 1.0-4.0 X 10^3 Monocytes # (Auto) 0.4 0.0-1.0 X 10^3 Eosinophils # (Auto) 0.2 0.0-0.3 10^3/uL Basophils # (Auto) 0.0 0.0-0.1 10^3/uL Sodium Level 140 135-145 MMOL/L Potassium Level 4.7 3.6-5.0 MMOL/L Chloride Level 105 98-107 MMOL/L Carbon Dioxide Level 22 21-32 MMOL/L Anion Gap 13 5-14 MMOL/L Blood Urea Nitrogen 42 H 7-18 MG/DL Creatinine 1.59 H 0.60-1.30 MG/DL Estimat Glomerular Filtration Rate 33 BUN/Creatinine Ratio 26 Glucose Level 134 H 70-105 MG/DL Calcium Level 8.7 8.5-10.1 MG/DL Corrected Calcium 8.5 8.5-10.1 MG/DL Total Bilirubin 0.2 0.1-1.0 MG/DL Aspartate Amino Transf (AST/SGOT) 17 5-34 U/L Alanine Aminotransferase (ALT/SGPT) 25 0-55 U/L Alkaline Phosphatase 94 40-136 U/L Total Creatine Kinase 54 29-168 U/L Total Protein 8.2 6.4-8.2 GM/DL Albumin 4.2 3.2-4.5 GM/DL Urine Color YELLOW Urine Clarity CLEAR Urine pH 6.0 5-9 Urine Specific [place] 1.020 1.016-1.022 Urine Protein TRACE H NEGATIVE Urine Glucose (UA) NEGATIVE NEGATIVE Urine Ketones NEGATIVE NEGATIVE Urine Nitrite NEGATIVE NEGATIVE Urine Bilirubin NEGATIVE NEGATIVE Urine Urobilinogen 0.2 < = 1.0 MG/DL Urine Leukocyte Esterase NEGATIVE NEGATIVE Urine RBC (Auto) NEGATIVE NEGATIVE Urine RBC RARE /HPF Urine WBC 2-5 /HPF Urine Squamous Epithelial Cells 0-2 /HPF Urine Crystals NONE /LPF Urine Bacteria NEGATIVE /HPF Urine Casts NONE /LPF Urine Mucus NEGATIVE /LPF Urine Culture Indicated NO Urine Opiates Screen NEGATIVE NEGATIVE Urine Oxycodone Screen NEGATIVE NEGATIVE Urine Methadone Screen NEGATIVE NEGATIVE Urine Propoxyphene Screen NEGATIVE NEGATIVE Urine Barbiturates Screen POSITIVE H NEGATIVE Ur Tricyclic Antidepressants Screen NEGATIVE NEGATIVE Urine Phencyclidine Screen NEGATIVE NEGATIVE Urine Amphetamines Screen NEGATIVE NEGATIVE Urine Methamphetamines Screen NEGATIVE NEGATIVE Urine Benzodiazepines Screen NEGATIVE NEGATIVE Urine Cocaine Screen NEGATIVE NEGATIVE Urine Cannabinoids Screen NEGATIVE NEGATIVE My Orders Orders - NEERAJ VILLA APRN Levetiracetam Injection (Keppra Injectio (06/07/20 13:30) Cbc With Automated Diff (06/07/20 13:28) Comprehensive Metabolic Panel (06/07/20 13:28) Urinalysis (06/07/20 13:28) Drug Screen Stat (Urine) (06/07/20 13:28) Straight Cath (Urinary) (06/07/20 13:28) Creatine Kinase (06/07/20 13:28) Lactated Ringers (Lr 1000 Ml Iv Solution (06/07/20 13:30) Metoprolol Tartrate Injection (Lopressor (06/07/20 14:00) Medications Given in ED Vital Signs/I&O 06/07/20 06/07/20 13:20 14:40 Temp 36.8 Pulse 110 84 Resp 16 16 B/P (MAP) 175/104 (127) 176/94 Pulse Ox 92 100 O2 Delivery Nasal Cannula O2 Flow Rate 2.00 Departure Impression Primary Impression: Seizure disorder Disposition: HOME, SELF-CARE Condition: Stable Departure-Patient Inst. Referrals: [facility] (PCP/Family) Primary Care Physician Patient Instructions: Seizures, Adult (DC) Add. Discharge Instructions: Please remember to take your prescribed medications as directed. All discharge instructions reviewed with patient and/or family. Voiced understanding. NEERAJ VILLA APRN Jun 07, 2020 13:36
[2020-06-07 13:42] LABS: BILIRUBIN,URINE NEGATIVE (NEGATIVE); CLARITY,URINE CLEAR; COLOR,URINE YELLOW; GLUCOSE, URINE (UA) NEGATIVE (NEGATIVE); KETONES,URINE NEGATIVE (NEGATIVE); LEUKOCYTE ESTERASE ,URINE NEGATIVE (NEGATIVE); NITRITE,URINE NEGATIVE (NEGATIVE); PROTEIN,URINE TRACE (NEGATIVE)
[2020-06-07 13:43] LABS: ALBUMIN 4.2 GM/DL (3.2-4.5)
[2020-06-07 13:44] LABS: POTASSIUM 4.7 MMOL/L (3.6-5.0)
[2020-06-07 13:45] LABS: CALCIUM 8.7 MG/DL (8.5-10.1)
[2020-06-07 13:46] LABS: TOTAL PROTEIN 8.2 GM/DL (6.4-8.2)
[2020-06-07 13:48] LABS: BILIRUBIN,TOTAL 0.2 MG/DL (0.1-1.0)
[2020-06-07 13:49] LABS: CREATININE SERUM 1.59 MG/DL (0.60-1.30)
[2020-06-07 13:58] LABS: AMPHETAMINE SCREEN, URINE NEGATIVE (NEGATIVE); BACTERIA,URINE NEGATIVE /HPF; BARBITURATE SCREEN URINE POSITIVE (NEGATIVE); BENZODIAZEPINES SCREEN URINE NEGATIVE (NEGATIVE); CANNABINOID SCREEN, URINE NEGATIVE (NEGATIVE); COCAINE SCREEN URINE NEGATIVE (NEGATIVE); METHADONE STAT NEGATIVE (NEGATIVE); METHAMPHETAMINE SCREEN URINE S NEGATIVE (NEGATIVE); OPIATE SCREEN URINE NEGATIVE (NEGATIVE); OXYCODONE STAT NEGATIVE (NEGATIVE); PROPOXYPHENE STAT NEGATIVE (NEGATIVE); RBC,URINE RARE /HPF; SQUAMOUS EPITHELIAL CELL,UR 0-2 /HPF; TRICYCLIC ANTIDEPRESSANTS SCRE NEGATIVE (NEGATIVE)
[2020-06-07] MEDS ORDERED: meTOprolol 5 MG/5 ML (LOPRESSOR) VIAL IV ONE (14:00)
[2020-06-07 14:40] VITALS: BP 176/94
== END 2020-06-07 14:40 | disposition home or self-care (01) ==
LOC: ER 13:21 → EDUNIT# 13:21 → ER 14:40
DX: G40.909 Epilepsy, unspecified, not intractable, without status epilepticus (principal); I10 Essential (primary) hypertension; I25.2 Old myocardial infarction; I25.10 Atherosclerotic heart disease of native coronary artery without angina pectoris; K21.9 Gastro-esophageal reflux disease without esophagitis; F41.9 Anxiety disorder, unspecified; F31.9 Bipolar disorder, unspecified; G89.29 Other chronic pain; M54.9 Dorsalgia, unspecified; M54.2 Cervicalgia; Z86.73 Personal history of transient ischemic attack (TIA), and cerebral infarction without residual deficits; Z85.41 Personal history of malignant neoplasm of cervix uteri; Z88.8 Allergy status to other drugs, medicaments and biological substances; Z82.49 Family history of ischemic heart disease and other diseases of the circulatory system
CPT/HCPCS: 36415; 51701; 80053; 80306; 81000; 82550; 85025

== ENCOUNTER 2020-07-29 22:58 | Emergency (ER) | payer MEDICAID ==
[~2020-07-29] VITALS: Ht 160 cm; Wt 82.0 kg
[~2020-07-29 22:58] MED LIST changes: +CEFD300C3 PO; -PANT40TA3; +PANT40TA52
[2020-07-29] MEDS ORDERED: LACTATED RINGERS 1,000 ML IV ONE (23:03)
--- NOTE | 2020-07-29 23:14 | ED Neurological Problem ---
General Chief Complaint: Neurological Problems Stated Complaint: SEIZURE SYM Source: patient (POOR HISTORIAN), EMS, old records History of Present Illness Date Seen by Provider: Jul 29, 2020 Time Seen by Provider: 22:55 Initial Comments PT ARRIVES VIA [facility] FROM HOME EMS REPORTS THAT PT CALLED POLICE FOR UNKNOWN REASON WHEN POLICE ARRIVED, THE PT REPORTEDLY HAD 3 SEIZURES AND THEN WHEN EMS ARRIVED, PT HAD ANOTHER SEIZURE PT WAS LAYING ON THE COUCH AT THE TIME AND NO INJURY NOTED. NO INCONTINENCE EMS GAVE PT 5 MG VERSED IM. AN EMS OUT AND OUT CIGAR MAKER HAND ACCESSED PT'S PORT AFTER THIS. ( ON ARRIVAL THE ACCESS NEEDLE IS HALF-OUT AND EXPOSED, NOT SECURED AND SITE AND LOOSELY APPLIED TAPE IS DIRTY --THIS WAS REMOVED ON PT'S ARRIVAL AND AREA CLEANED THOROUGHLY. ) PT HAS NOT HAD ANY SEIZURE ACTIVITY SINCE THEN. PT HAS LONGSTANDING SEIZURE DISORDER AND TAKES KEPPRA AND PHENOBARBITAL. PT DOES NOT KNOW IF SHE TOOK HER MEDICATIONS TODAY OR NOT. EMS REPORT THAT THERE WAS NOT A SOAP MIXER THERE WHEN THEY ARRIVED, BUT A REPORTED SOAP MIXER ARRIVED JUST BEFORE THEY LEFT THE SCENE. EMS DID NOT BRING A MEDICATION LIST WITH PT. EMS REPORT THAT HOUSE WAS DEPLORABLE. PT DENIES FEVER OR RECENT ILLNESS OR RECENT COVID-19 TESTING. PT WITH A MULTITUDE OF VISITS HERE, FOR VARIOUS COMPLAINTS, AND MANY OF THEM ARE FOR SEIZURES PT WITH LONGSTANDING HISTORY OF IV METH USE WELL OTHER SUBSTANCES ABUSED LAST VISIT HERE WAS 06/15/20 AND WAS DX WITH UTI. PT HAS HAD 11 VISITS HERE IN 2019 PCP: [id number] Allergies and Home Medications Allergies Coded Allergies: nitrous oxide (Verified Allergy, Unknown, 06/08/07) Home Medications Acetaminophen 500 Mg Tablet, 1,000 MG PO Q6H PRN for PAIN-MILD, (Reported) Amlodipine Besylate 10 Mg Tablet, 5 MG PO BID, (Reported) TAKES OF A 10MG TAB TWICE DAILY Carvedilol 25 Mg Tab, 25 MG PO BID, (Reported) LAST FILLED 12-17-2019 #60 Cefdinir 300 Mg Capsule, 300 MG PO DAILY Prescribed by: QUIN JONES on 06/15/20 1204 Clonidine HCl 0.2 Mg Tablet, 0.2 MG PO BID, (Reported) Cyclobenzaprine HCl 10 Mg Tablet, 10 MG PO TID PRN for MUSCLE SPASMS, (Reported) Ergocalciferol (Vitamin D2) 1,250 Mcg Capsule, 1,250 MCG PO WEEK, (Reported) Famotidine 20 Mg Tablet, 20 MG PO BID, (Reported) Hydralazine HCl 100 Mg Tablet, 100 MG PO TID, (Reported) Hydroxyzine HCl 25 Mg Tablet, 25 MG PO BID PRN for ANXIETY, (Reported) Levetiracetam 500 Mg Tablet, 1,000 MG PO BID LAST FILLED 12-07-2019 #120 TAKES 2 (500MG) TABS TWICE DAILY Prescribed by: MATTHEW DAVID on 02/08/20 1105 Loratadine 10 Mg Tablet, 10 MG PO DAILY, (Reported) Metoprolol Succinate 100 Mg Tab.er.24h, 100 MG PO DAILY, (Reported) Nitrofurantoin Monohyd/M-Cryst 100 Mg Capsule, 1 TAB PO BID Prescribed by: MATTHEW DAVID on 02/08/20 110 Oxcarbazepine 300 Mg Tablet, 600 MG PO BID LAST FILLED 12-07-2019 #120 TAKES 2 (300MG)TABS TWICE DAILY Prescribed by: MATTHEW DAVID on 02/08/20 1105 Phenobarbital 64.8 Mg Tablet, 129.6 MG PO BID, (Reported) TAKES 2 (64.8MG) TABS TO EQUAL 129.6 Prazosin HCl 1 Mg Capsule, 1 MG PO HS, (Reported) Patient Home Medication List Home Medication List Reviewed: Yes Review of Systems Review of Systems Constitutional: no symptoms reported; No chills, No diaphoresis, No fever Eyes: No Symptoms Reported Ears, Nose, Mouth, Throat: no symptoms reported Respiratory: no symptoms reported; No cough, No short of breath Cardiovascular: no symptoms reported; No chest pain Gastrointestinal: no symptoms reported; No abdominal pain, No nausea, No vomiting Genitourinary: no symptoms reported Musculoskeletal: no symptoms reported Skin: no symptoms reported Psychiatric/Neurological: See HPI; Denies Cognitive Dysfunction, Denies Headache, Denies Weakness Endocrine: No Symptoms Reported Hematologic/Lymphatic: No Symptoms Reported Past Fcyxjkp-Nueskm-Krkrtr Hx Past Med/Social Hx: Reviewed and Corrections made Patient Social History Alcohol Use: Denies Use Recreational Drug Use: Yes (+ IV METH USE, THC USE) Drug of Choice: + IV METH USE, THC USE Smoking Status: Current Everyday Smoker Type Used: Cigarettes 2nd Hand Smoke Exposure: No Recent Foreign Travel: No Contact w/Someone Who Travel: No Recent Hopitalizations: No Immunizations Up To Date Tetanus Booster (TDap): Less than 5yrs PED Vaccines UTD: No Date of Pneumonia Vaccine: Jul 13, 2012 Date of Influenza Vaccine: Jul 15, 2019 Seasonal Allergies Seasonal Allergies: No Past Medical History Surgeries: Yes (SEE BELOW) Abdominal, Adenoidectomy, Cardiac, Section, Hysterectomy, Oophorectomy, Renal, Tonsillectomy Respiratory: Yes (SUPPOSED TO BE ON O2 AT 2 1/2-3L/NC AT HS & PRN;HX OF RESP FAILURE W/INTUBA) COPD Currently Using CPAP: No Currently Using BIPAP: No Cardiac: Yes Cardiomyopathy, Coronary Artery Disease, Endocarditis, Heart Attack, Hypertension, Peripheral Vascular, Valvular Heart Disease Neurological: Yes Concussion, Seizure Disorder, Stroke, Traumatic Brain Injury 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 Disorders: No Female 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 History: Hysterectomy, Menopausal Sexually Transmitted Disease: No HIV/AIDS: No Genitourinary: Yes Kidney Infection, Bladder Infection, Kidney Stones, Renal Failure, UTI-Chronic Gastrointestinal: Yes Abdominal Hernia, Gastroesophageal Reflux, Pancreatitis, Hepatitis Musculoskeletal: Yes (CHRONIC NECK AND BACK PAIN; POOR AMBULATION) Arthritis, Chronic Back Pain Endocrine: Yes (HGB AIC WAS 6.5 ON 12/23/18) Diabetes, Non-Insulin dep HEENT: Yes (POOR DENTITION) Loss of Vision: Denies Hearing Impairment: Denies Cancer: Yes Cervical Did You Recieve Any Treatments: Yes What Type of Treatment Did You: Surgical Intervention Psychosocial: Yes (POLYSUBSTANCE ABUSE) Anxiety, Bipolar, Depression Integumentary: No Blood Disorders: Yes (ANEMIA OF CHRONIC DISEASE) Adverse Reaction/Blood Tranf: No Family Medical History Abdominal aortic aneurysm 03 FATHER Alcoholism 03 FATHER 03 MOTHER 09 SISTER 09 SISTER Cancer 03 FATHER Cataract 03 FATHER 03 MOTHER Chest pain 03 MOTHER Family history: Diabetes mellitus 03 MOTHER Family history: Hypertension 03 MOTHER Family history: Thyroid disorder 03 MOTHER Headache 09 SISTER Heart disease 03 MOTHER History of drug abuse 03 FATHER 09 SISTER Myocardial infarction 03 MOTHER No Family History of: Isael's disease Aphasia Cancer of colon Congenital heart disease Congestive heart failure Cystic fibrosis Dementia Dysphagia Family history: Allergy Family history: Alzheimer's disease Family history: Arthritis Family history: Asthma Family history: Breast disease Family history: Cardiovascular disease Family history: Coronary thrombosis Family history: Gastrointestinal disease Family history: Glaucoma Family history: Osteoporosis Hearing loss Hereditary disease History of - anemia History of - disorder History of - respiratory disease Human immunodeficiency virus (HIV) seropositivity Hypercholesterolemia Infertile Kidney disease Malignant neoplasm of lung Parkinson's disease Prostate cancer Psychotic disorder Seizure disorder Stroke Tuberculosis Visual impairment AAA, Heart Disease, Diabetes -SOCIAL HISTORY: -ETOH -OCCASIONAL USE -DRUGS-EXTENSIVE HISTORY OF IV METH USE, THC USE -SMOKES AT LEAST 1 PPD PAST SURGICAL HISTORY: -MULTIPLE CENTRAL LINES/PICC LINES -PORT LEFT CHEST PRESENT 07/29/20 -DIAGNOSTIC LAPAROSCOPY/LAPAROTOMY -MULTIPLE CYSTOSCOPIES WITH RIGHT URETERAL STENT PLACED AND LATER REMOVED -I&D OF ABSCESSES -MULTIPLE CARDIAC CATHS--NO INTERVENTION -HYSTERECTOMY WITH LATER BILATERAL SALPINGO-OOPHORECTOMY -UMBILICAL HERNIA REPAIR WITH MESH -BILATERAL MYRINGOTOMY TUBES -BLADDER SUSPENSION -MULTIPLE LEFT LEG SURGERIES DUE TO TRAUMA A CHILD -EGD -LEFT MASTOIDECTOMY NOTED ON CT 08/26/19--PT UNAWARE OF THIS PAST MEDICAL HISTORY: -HAS BEEN INTUBATED FOR RESPIRATORY FAILURE--LAST TIME WAS 08/26/19 -SUPPOSED TO BE ON O2 AT HS AT 2 1/2-3L/NC AND PRN. -NON-ISCHEMIC CARDIOMYOPATHY -HAS HAD EXTERNAL DEFIBRILLATOR IN PAST -CHRONIC CHEST PAIN COMPLAINTS, WITH ELEVATED TROPONIN MULTIPLE TIMES AND DX WITH NSTEMI 02/2018--LAST CARDIAC CATH 02/2018--SHOWED MILD CAD/NO INTERVENTION LAST LEXISCAN STRESS TEST WAS NORMAL 07/12/19. LAST ECHOCARDIOGRAM 08/20/19--NON-ISCHEMIC CARDIOMYOPATHY WITH EF 55-65% -MITRAL REGURGITATION -TRICUSPID VALVE VEGETATIONS 2013 -CHF -MULTIPLE CARDIAC CATHS-NO INTERVENTION -POOR VENOUS ACCESS -TRAUMATIC BRAIN INJURY CHILD; -CVA WITH LEFT SIDED WEAKNESS -POOR BALANCE--IS SUPPOSED TO USE A WALKER -MULTIPLE EPISODES OF "ALTERED MENTAL STATUS" -MULTIPLE HEAD INJURIES DUE TO REPORTED DOMESTIC ABUSE -CHRONIC RENAL FAILURE--NO DIALYSIS -CHRONIC ABDOMINAL PAIN COMPLAINTS; -GASTRITIS -HEPATITIS C--NO TREATMENT -CHRONIC NECK AND BACK PAIN; POOR AMBULATION -ANEMIA OF CHRONIC DISEASE -LONG HISTORY OF NON-COMPLIANCE IN ALL ASPECTS OF CARE Physical Exam Vital Signs Vital Signs - First Documented 07/29/20 23:00 Temp 37.0 Pulse 93 Resp 16 B/P (MAP) 118/99 (105) Pulse Ox 92 O2 Delivery Room Air Capillary Refill : Height, Weight, BMI Height: 5'3.00" Weight: 155lbs. 8.0oz. [id number]; 31.00 BMI Method:Stated General Appearance: obese, other (CONSTANT BODY AND MOUTH MOVEMENTS--NORMAL BASELINE FOR PT; PT DIRTY, UNKEMPT AND MALODOROUS; MENTATION IS NORMAL BASELINE. DOES NOT APPEAR TO BE IN ANY DISCOMFORT OR DISTRESS. FREQUENT GROWLING/GUTTERAL NOISES/GRUNTING, ETC--ALSO NORMAL BEHAVIOR FOR PT. ) HEENT: other (POOR DENTITION--MOST TEETH MISSING AND REMAINING TEETH WITH EXTENSIVE DECAY. NO EVIDENCE OF INTRA-ORAL INJURY) Neck: normal inspection Respiratory: normal breath sounds, no respiratory distress, no accessory muscle use Cardiovascular: regular rate, rhythm, systolic murmur (/6) Gastrointestinal: non tender, soft Extremities: normal inspection, normal capillary refill Neurologic/Psychiatric: alert, normal mood/affect, oriented x 3, other (MOVES ALL EXTREMITIES. NO GROSS MOTOR OR SENSORY DEFICITS. PT ABLE TO AMBULATE ON HER OWN WITHOUT ASSISTIVE DEVICE, BUT WITH SOMEWHAT SLOW AND UNSTEADY GAIT--IS PT'S NORMAL BASELINE. ) Crainal Nerves: normal speech Skin: normal color, warm/dry Procedures/Interventions Date of ETT Placement: Sep 17, 2019 Time of ETT Placement: 1745 Progress/Results/Core Measures Results/Orders Lab Results Laboratory Tests Test 07/29/20 23:20 Range/Units White Blood Count 6.1 4.3-11.0 10^3/uL Red Blood Count 3.74 L 3.80-5.11 10^6/uL Hemoglobin 10.3 L 11.5-16.0 g/dL Hematocrit 33 L 35-52 % Mean Corpuscular Volume 88 80-99 fL Mean Corpuscular Hemoglobin 28 25-34 pg Mean Corpuscular Hemoglobin Concent 31 L 32-36 g/dL Red Cell Distribution Width 14.7 H 10.0-14.5 % Platelet Count 95 L 130-400 10^3/uL Mean Platelet Volume 12.3 H 9.0-12.2 fL Immature Granulocyte % (Auto) 7 % Neutrophils (%) (Auto) 31 L 42-75 % Lymphocytes (%) (Auto) 31 12-44 % Monocytes (%) (Auto) 28 H 0-12 % Eosinophils (%) (Auto) 2 0-10 % Basophils (%) (Auto) 1 0-10 % Neutrophils # (Auto) 1.9 1.8-7.8 10^3/uL Lymphocytes # (Auto) 1.9 1.0-4.0 10^3/uL Monocytes # (Auto) 1.7 H 0.0-1.0 10^3/uL Eosinophils # (Auto) 0.1 0.0-0.3 10^3/uL Basophils # (Auto) 0.1 0.0-0.1 10^3/uL Immature Granulocyte # (Auto) 0.4 H 0.0-0.1 10^3/uL Prothrombin Time 41.2 H 12.2-14.7 SEC INR Comment 4.3 H 0.8-1.4 Activated Partial Thromboplast Time 107 H 24-35 SEC Urine Color YELLOW Urine Clarity CLEAR Urine pH 6.0 5-9 Urine Specific [place] 1.015 L 1.016-1.022 Urine Protein NEGATIVE NEGATIVE Urine Glucose (UA) TRACE H NEGATIVE Urine Ketones NEGATIVE NEGATIVE Urine Nitrite NEGATIVE NEGATIVE Urine Bilirubin NEGATIVE NEGATIVE Urine Urobilinogen 0.2 < = 1.0 MG/DL Urine Leukocyte Esterase NEGATIVE NEGATIVE Urine RBC (Auto) NEGATIVE NEGATIVE Urine RBC NONE /HPF Urine WBC 0-2 /HPF Urine Squamous Epithelial Cells 2-5 /HPF Urine Crystals NONE /LPF Urine Bacteria NEGATIVE /HPF Urine Casts NONE /LPF Urine Mucus NEGATIVE /LPF Urine Culture Indicated NO Sodium Level 145 135-145 MMOL/L Potassium Level 5.2 H 3.6-5.0 MMOL/L Chloride Level 105 98-107 MMOL/L Carbon Dioxide Level 22 21-32 MMOL/L Anion Gap 18 H 5-14 MMOL/L Blood Urea Nitrogen 44 H 7-18 MG/DL Creatinine 1.28 0.60-1.30 MG/DL Estimat Glomerular Filtration Rate 43 BUN/Creatinine Ratio 34 Glucose Level 87 70-105 MG/DL Calcium Level 8.1 L 8.5-10.1 MG/DL Corrected Calcium 8.4 L 8.5-10.1 MG/DL Magnesium Level 1.8 1.6-2.4 MG/DL Total Bilirubin 0.2 0.1-1.0 MG/DL Aspartate Amino Transf (AST/SGOT) 15 5-34 U/L Alanine Aminotransferase (ALT/SGPT) 22 0-55 U/L Alkaline Phosphatase 84 40-136 U/L Total Creatine Kinase 37 29-168 U/L Creatine Kinase MB 1.7 <6.6 NG/ML Myoglobin 28.2 10.0-92.0 NG/ML Total Protein 7.1 6.4-8.2 GM/DL Albumin 3.6 3.2-4.5 GM/DL Urine Opiates Screen NEGATIVE NEGATIVE Urine Oxycodone Screen NEGATIVE NEGATIVE Urine Methadone Screen NEGATIVE NEGATIVE Urine Propoxyphene Screen NEGATIVE NEGATIVE Acetaminophen Level < 10 L 10-30 UG/ML Urine Barbiturates Screen POSITIVE H NEGATIVE Ur Tricyclic Antidepressants Screen NEGATIVE NEGATIVE Urine Phencyclidine Screen NEGATIVE NEGATIVE Urine Amphetamines Screen NEGATIVE NEGATIVE Urine Methamphetamines Screen NEGATIVE NEGATIVE Phenobarbital Level 18.5 15.0-40.0 ug/mL Urine Benzodiazepines Screen NEGATIVE NEGATIVE Urine Cocaine Screen NEGATIVE NEGATIVE Urine Cannabinoids Screen NEGATIVE NEGATIVE Serum Alcohol < 10 <10 MG/DL My Orders Orders - HOLA BRIGHT DO Ed Iv/Invasive Line Start (07/29/20 23:03) Monitor-Rhythm Ecg Trace Only (07/29/20 23:03) Acetaminophen (07/29/20 23:03) Alcohol (07/29/20 23:03) Cbc With Automated Diff (07/29/20:03) Comprehensive Metabolic Panel (07/29/20 23:03) Creatine Kinase (07/29/20 23:03) Creatine Kinase Mb (07/29/20 23:03) Drug Screen Stat (Urine) (07/29/20 23:03) Magnesium (07/29/20 23:03) Protime With Inr (07/29/20:03) Partial Thromboplastin Time (07/29/20 23:03) Ua Culture If Indicated (07/29/20 23:03) Myoglobin Serum (07/29/20 23:03) Ed Iv/Invasive Line Start (07/29/20 23:03) Lactated Ringers (Lr 1000 Ml Iv Solution (07/29/20 23:03) Straight Cath For Spec.-Adult (07/29/20 23:05) Levetiracetam Injection (Keppra Injectio (07/29/20 23:15) Phenobarbital (07/29/20 23:08) Ed Iv/Invasive Line Start (07/30/20 00:22) Ns Iv 1000 Ml (Sodium Chloride 0.9%) (07/30/20 00:22) Medications Given in ED Vital Signs/I&O 07/29/20 07/30/20 23:00 01:51 Temp 37.0 36.9 Pulse 93 88 Resp 16 16 B/P (MAP) 118/99 (105) 115/99 (105) Pulse Ox 92 96 O2 Delivery Room Air Room Air Progress Progress Note : Progress Note UNEVENTFUL ER STAY Departure Impression Primary Impression: Seizure disorder Additional Impression: Dehydration Disposition: HOME, SELF-CARE Condition: Stable Departure-Patient Inst. Referrals: [facility] [place] (PCP/Family) Primary Care Physician Patient Instructions: Seizures, Adult (DC), Dehydration, Adult (DC) Add. Discharge Instructions: INCREASE YOUR CLEAR LIQUIDS--WATER, BROTH, JELLO, GATORADE TAKE ALL OF YOUR MEDICATIONS EXACTLY PRESCRIBED--DO NOT MISS DOSES FOLLOW UP WITH YOUR DR NEXT WEEK FOR FURTHER CARE, RETURN TO ER IF WORSE All discharge instructions reviewed with patient and/or family. Voiced unde rstanding. HOLA BRIGHT DO Jul 29, 2020 23:14
[2020-07-29] MEDS ORDERED: LEVETIRACETAM INJECTION 1,000 MG in NS (IVPB) 100 ML IV ONE (23:15)
[2020-07-29 23:33] LABS: BILIRUBIN,URINE NEGATIVE (NEGATIVE); CLARITY,URINE CLEAR; COLOR,URINE YELLOW; GLUCOSE, URINE (UA) TRACE (NEGATIVE); KETONES,URINE NEGATIVE (NEGATIVE); LEUKOCYTE ESTERASE ,URINE NEGATIVE (NEGATIVE); NITRITE,URINE NEGATIVE (NEGATIVE); PROTEIN,URINE NEGATIVE (NEGATIVE)
[2020-07-29 23:34] LABS: BASOPHILS # (AUTO) 0.1 10^3/uL (0.0-0.1); BASOPHILS % (AUTO) 1 % (0-10); EOSINOPHILS # (AUTO) 0.1 10^3/uL (0.0-0.3); EOSINOPHILS % (AUTO) 2 % (0-10); HEMATOCRIT 33 % (35-52); HEMOGLOBIN 10.3 g/dL (11.5-16.0); LYMPHOCYTES # (AUTO) 1.9 10^3/uL (1.0-4.0); LYMPHOCYTES % (AUTO) 31 % (12-44); MEAN CORPUSCULAR HEMOGLOBIN 28 pg (25-34); MEAN CORPUSCULAR HGB CONC 31 g/dL (32-36); MEAN CORPUSCULAR VOLUME 88 fL (80-99); MEAN PLATELET VOLUME 12.3 fL (9.0-12.2); MONOCYTES # (AUTO) 1.7 10^3/uL (0.0-1.0); MONOCYTES % (AUTO) 28 % (0-12); NEUTROPHILS # (AUTO) 1.9 10^3/uL (1.8-7.8); NEUTROPHILS % (AUTO) 31 % (42-75); PLATELET COUNT 95 10^3/uL (130-400); WHITE BLOOD COUNT 6.1 10^3/uL (4.3-11.0)
[2020-07-29 23:44] LABS: BACTERIA,URINE NEGATIVE /HPF; WBC,URINE 0-2 /HPF
[2020-07-29 23:45] LABS: AMPHETAMINE SCREEN, URINE NEGATIVE (NEGATIVE); BARBITURATE SCREEN URINE POSITIVE (NEGATIVE); BENZODIAZEPINES SCREEN URINE NEGATIVE (NEGATIVE); CANNABINOID SCREEN, URINE NEGATIVE (NEGATIVE); COCAINE SCREEN URINE NEGATIVE (NEGATIVE); METHADONE STAT NEGATIVE (NEGATIVE); METHAMPHETAMINE SCREEN URINE S NEGATIVE (NEGATIVE); OPIATE SCREEN URINE NEGATIVE (NEGATIVE); OXYCODONE STAT NEGATIVE (NEGATIVE); PROPOXYPHENE STAT NEGATIVE (NEGATIVE); TRICYCLIC ANTIDEPRESSANTS SCRE NEGATIVE (NEGATIVE)
[2020-07-29 23:47] LABS: INR 4.3 (0.8-1.4); PROTHROMBIN TIME PATIENT 41.2 SEC (12.2-14.7)
[2020-07-29 23:53] LABS: ALBUMIN 3.6 GM/DL (3.2-4.5); POTASSIUM 5.2 MMOL/L (3.6-5.0); SODIUM 145 MMOL/L (135-145)
[2020-07-29 23:54] LABS: CALCIUM 8.1 MG/DL (8.5-10.1)
[2020-07-29 23:56] LABS: GLUCOSE 87 MG/DL (70-105); TOTAL PROTEIN 7.1 GM/DL (6.4-8.2)
[2020-07-29 23:57] LABS: BILIRUBIN,TOTAL 0.2 MG/DL (0.1-1.0); CARBON DIOXIDE 22 MMOL/L (21-32)
[2020-07-29 23:59] LABS: ALKALINE PHOSPHATASE 84 U/L (40-136); CREATININE SERUM 1.28 MG/DL (0.60-1.30); GFR ESTIMATED 43
[2020-07-30] LABS: BUN/CREATININE RATIO 34
[2020-07-30 00:01] LABS: ACETAMINOPHEN < 10 UG/ML (10-30)
[2020-07-30 00:02] LABS: ALANINE AMINOTRANSFERASE 22 U/L (0-55); MAGNESIUM 1.8 MG/DL (1.6-2.4)
[2020-07-30 00:04] LABS: CREATINE KINASE 37 U/L (29-168)
[2020-07-30 00:09] LABS: CREATINE KINASE MB 1.7 NG/ML (<6.6)
[2020-07-30] MEDS ORDERED: NS IV 1000 ML 1,000 ML IV SCH (00:22)
[2020-07-30 01:00] LABS: CHLORIDE 105 MMOL/L (98-107)
[2020-07-30 01:51] VITALS: BP 115/99
== END 2020-07-30 01:57 | disposition home or self-care (01) ==
LOC: EDUNIT# 22:58 → ER 23:00
DX: G40.909 Epilepsy, unspecified, not intractable, without status epilepticus (principal); E86.0 Dehydration; E66.9 Obesity, unspecified; I25.10 Atherosclerotic heart disease of native coronary artery without angina pectoris; I10 Essential (primary) hypertension; I25.2 Old myocardial infarction; K21.9 Gastro-esophageal reflux disease without esophagitis; F41.9 Anxiety disorder, unspecified; F31.9 Bipolar disorder, unspecified; F17.210 Nicotine dependence, cigarettes, uncomplicated; Z68.31 Body mass index [BMI] 31.0-31.9, adult; Z82.49 Family history of ischemic heart disease and other diseases of the circulatory system; Z83.3 Family history of diabetes mellitus; Z80.9 Family history of malignant neoplasm, unspecified; Z85.41 Personal history of malignant neoplasm of cervix uteri; Z87.820 Personal history of traumatic brain injury
CPT/HCPCS: 51701; 80053; 80184; 80306; 81000; 82550; 82553; 83735; 83874; 85025; 85610; 85730; 93041; 99285; G0480 ×2; 36415; 80320; 80329

== ENCOUNTER 2020-07-31 13:15 | Outpatient (RCR) | payer MEDICAID ==
[~2020-07-31] VITALS: Ht 154.9 cm
[~2020-07-31 13:15] MED LIST changes: +AMLO-251 PO; -AMLO10TA7 PO; -CLIN300C11 PO; +CLIN300C12 PO; +CLN.2T PO; -CLON0.2T PO
[2020-07-31 13:35] VITALS: BP 136/109
[2020-10-26] MEDS ORDERED: CEPH-507 PO (21:15)
== END 2020-10-29 | disposition home or self-care (01) ==
LOC: SDC 13:15
PROVIDERS: ATTEND Nurse Practitioner Community Health
DX: Z45.2 Encounter for adjustment and management of vascular access device (principal)
CPT/HCPCS: 96523

== ENCOUNTER 2020-10-21 01:22 | Emergency (ER) | payer MEDICAID ==
[~2020-10-21] VITALS: Ht 165 cm; Wt 95.0 kg
--- NOTE | 2020-10-21 01:25 | NUR ---
Late entry: Pt arrives by EMS with initial c/o sob; EMS reports when they arrived pt was in the tripod position and c/o sob. Pt was in a vehicle that was pulled over by PD. Pt to cot and onto monitor. Pt noted to be very restless and and anxious, unable to sit still. Pt also noted to have numerous sores on arms, legs, and abdomen. Pt denies recent drug use but states she is a former meth user. She states she hasn't used "in years". EMS accessed pt's port to left chest; this is noted to not be patent. Port de-accessed by this nurse and re-accessed with blood drawn and sent to lab. ERP in room for eval.
--- NOTE | 2020-10-21 01:46 | ED Respiratory ---
General Stated Complaint: SOB Source: patient, EMS Exam Limitations: no limitations History of Present Illness Date Seen by Provider: Oct 21, 2020 Time Seen by Provider: 01:25 Initial Comments Patient presents ER by EMS from the middle of the street in a vehicle with 3 acquaintances stating she was having shortness of air. EMS reports she was tripoding when they arrived. She has a history of COPD. She denies any fever or productive cough or sick contacts. They gave her a DuoNeb and her respiratory distress cleared up. Her oxygen saturations went from the mid 80s to upper 90s. She typically lives on 2 L by nasal cannula supplemental oxygen. She is not having any nausea loss of sense of taste or smell or history of COVID-19 or influenza. She follows with Nabil Abdi for primary care. She has a history of hepatitis C and coronary disease. She is having pain in her left lower quadrant abdomen. She denies any recent abdominal surgeries. Patient is a very difficult historian. Allergies and Home Medications Allergies Coded Allergies: nitrous oxide (Verified Allergy, Unknown, 06/08/07) Home Medications Acetaminophen 500 Mg Tablet, 1,000 MG PO Q6H PRN for PAIN-MILD, (Reported) Amlodipine Besylate 10 Mg Tablet, 5 MG PO BID, (Reported) TAKES OF A 10MG TAB TWICE DAILY Carvedilol 25 Mg Tab, 25 MG PO BID, (Reported) LAST FILLED 12-17-2019 #60 Cefdinir 300 Mg Capsule, 300 MG PO DAILY Prescribed by: QUIN JONES on 06/15/20 1204 Clonidine HCl 0.2 Mg Tablet, 0.2 MG PO BID, (Reported) Cyclobenzaprine HCl 10 Mg Tablet, 10 MG PO TID PRN for MUSCLE SPASMS, (Reported) Ergocalciferol (Vitamin D2) 1,250 Mcg Capsule, 1,250 MCG PO WEEK, (Reported) Famotidine 20 Mg Tablet, 20 MG PO BID, (Reported) Hydralazine HCl 100 Mg Tablet, 100 MG PO TID, (Reported) Hydroxyzine HCl 25 Mg Tablet, 25 MG PO BID PRN for ANXIETY, (Reported) Levetiracetam 500 Mg Tablet, 1,000 MG PO BID LAST FILLED 12-07-2019 #120 TAKES 2 (500MG) TABS TWICE DAILY Prescribed by: MATTHEW DAVID on 02/08/20 1105 Loratadine 10 Mg Tablet, 10 MG PO DAILY, (Reported) Metoprolol Succinate 100 Mg Tab.er.24h, 100 MG PO DAILY, (Reported) Nitrofurantoin Monohyd/M-Cryst 100 Mg Capsule, 1 TAB PO BID Prescribed by: MATTHEW DAVID on 02/08/20 1109 Oxcarbazepine 300 Mg Tablet, 600 MG PO BID LAST FILLED 12-07-2019 #120 TAKES 2 (300MG)TABS TWICE DAILY Prescribed by: MATTHEW DAVID on 02/08/20 1105 Phenobarbital 64.8 Mg Tablet, 129.6 MG PO BID, (Reported) TAKES 2 (64.8MG) TABS TO EQUAL 129.6 Prazosin HCl 1 Mg Capsule, 1 MG PO HS, (Reported) Patient Home Medication List Home Medication List Reviewed: Yes Review of Systems Review of Systems Constitutional: No chills, No diaphoresis, No fever EENTM: No ear discharge, No hearing loss Respiratory: No cough; short of breath, wheezing Cardiovascular: No chest pain; Hx of Intervention; No palpitations Gastrointestinal: abdominal pain; No constipation, No nausea Genitourinary: No discharge, No dysuria Musculoskeletal: No back pain, No joint pain All Other Systems Reviewed Negative Unless Noted: Yes Past Vmyiyjt-Momwuo-Bhhfhp Hx Patient Social History Recreational Drug Use: Yes Drug of Choice: + IV METH USE, THC USE Smoking Status: Current Everyday Smoker Type Used: Cigarettes 2nd Hand Smoke Exposure: No Recent Hopitalizations: No Immunizations Up To Date Tetanus Booster (TDap): Less than 5yrs PED Vaccines UTD: No Date of Pneumonia Vaccine: Jul 13, 2012 Date of Influenza Vaccine: Jul 15, 2019 Seasonal Allergies Seasonal Allergies: No Past Medical History Surgeries: Yes (SEE BELOW) Abdominal, Adenoidectomy, Cardiac, Section, Hysterectomy, Oophorectomy, Renal, Tonsillectomy Respiratory: Yes (SUPPOSED TO BE ON O2 AT 2 1/2-3L/NC AT HS & PRN;HX OF RESP FAILURE W/INTUBA) COPD Currently Using CPAP: No Currently Using BIPAP: No Cardiac: Yes Cardiomyopathy, Coronary Artery Disease, Endocarditis, Heart Attack, Hypertension, Peripheral Vascular, Valvular Heart Disease Neurological: Yes Concussion, Seizure Disorder, Stroke, Traumatic Brain Injury 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 Disorders: No Female 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, Menopausal Sexually Transmitted Disease: No HIV/AIDS: No Genitourinary: Yes Kidney Infection, Bladder Infection, Kidney Stones, Renal Failure, UTI-Chronic Gastrointestinal: Yes Abdominal Hernia, Gastroesophageal Reflux, Pancreatitis, Hepatitis Musculoskeletal: Yes (CHRONIC NECK AND BACK PAIN; POOR AMBULATION) Arthritis, Chronic Back Pain Endocrine: Yes (HGB AIC WAS 6.5 ON 12/23/18) Diabetes, Non-Insulin dep HEENT: Yes (POOR DENTITION) Loss of Vision: Denies Hearing Impairment: Denies Cancer: Yes Cervical Did You Recieve Any Treatments: Yes What Type of Treatment Did You: Surgical Intervention Psychosocial: Yes (POLYSUBSTANCE ABUSE) Anxiety, Bipolar, Depression Integumentary: No Blood Disorders: Yes (ANEMIA OF CHRONIC DISEASE) Adverse Reaction/Blood Tranf: No Family Medical History Abdominal aortic aneurysm 03 FATHER Alcoholism 03 FATHER 03 MOTHER 09 SISTER 09 SISTER Cancer 03 FATHER Cataract 03 FATHER 03 MOTHER Chest pain 03 MOTHER Family history: Diabetes mellitus 03 MOTHER Family history: Hypertension 03 MOTHER Family history: Thyroid disorder 03 MOTHER Headache 09 SISTER Heart disease 03 MOTHER History of drug abuse 03 FATHER 09 SISTER Myocardial infarction 03 MOTHER No Family History of: [place]'s disease Aphasia Cancer of colon Congenital heart disease Congestive heart failure Cystic fibrosis Dementia Dysphagia Family history: Allergy Family history: Alzheimer's disease Family history: Arthritis Family history: Asthma Family history: Breast disease Family history: Cardiovascular disease Family history: Coronary thrombosis Family history: Gastrointestinal disease Family history: Glaucoma Family history: Osteoporosis Hearing loss Hereditary disease History of - anemia History of - disorder History of - respiratory disease Human immunodeficiency virus (HIV) seropositivity Hypercholesterolemia Infertile Kidney disease Malignant neoplasm of lung Parkinson's disease Prostate cancer Psychotic disorder Seizure disorder Stroke Tuberculosis Visual impairment AAA, Heart Disease, Diabetes -SOCIAL HISTORY: -ETOH -OCCASIONAL USE -DRUGS-EXTENSIVE HISTORY OF IV METH USE, THC USE -SMOKES AT LEAST 1 PPD PAST SURGICAL HISTORY: -MULTIPLE CENTRAL LINES/PICC LINES -PORT LEFT CHEST PRESENT 07/29/20 -DIAGNOSTIC LAPAROSCOPY/LAPAROTOMY -MULTIPLE CYSTOSCOPIES WITH RIGHT URETERAL STENT PLACED AND LATER REMOVED -I&D OF ABSCESSES -MULTIPLE CARDIAC CATHS--NO INTERVENTION -HYSTERECTOMY WITH LATER BILATERAL SALPINGO-OOPHORECTOMY -UMBILICAL HERNIA REPAIR WITH MESH -BILATERAL MYRINGOTOMY TUBES -BLADDER SUSPENSION -MULTIPLE LEFT LEG SURGERIES DUE TO TRAUMA A CHILD -EGD -LEFT MASTOIDECTOMY NOTED ON CT 08/26/19--PT UNAWARE OF THIS PAST MEDICAL HISTORY: -HAS BEEN INTUBATED FOR RESPIRATORY FAILURE--LAST TIME WAS 08/26/19 -SUPPOSED TO BE ON O2 AT HS AT 2 1/2-3L/NC AND PRN. -NON-ISCHEMIC CARDIOMYOPATHY -HAS HAD EXTERNAL DEFIBRILLATOR IN PAST -CHRONIC CHEST PAIN COMPLAINTS, WITH ELEVATED TROPONIN MULTIPLE TIMES AND DX WITH NSTEMI 02/2018--LAST CARDIAC CATH 02/2018--SHOWED MILD CAD/NO INTERVENTION LAST LEXISCAN STRESS TEST WAS NORMAL 07/12/19. LAST ECHOCARDIOGRAM 08/20/19--NON-ISCHEMIC CARDIOMYOPATHY WITH EF 55-65% -MITRAL REGURGITATION -TRICUSPID VALVE VEGETATIONS 2013 -CHF -MULTIPLE CARDIAC CATHS-NO INTERVENTION -POOR VENOUS ACCESS -TRAUMATIC BRAIN INJURY CHILD; -CVA WITH LEFT SIDED WEAKNESS -POOR BALANCE--IS SUPPOSED TO USE A WALKER -MULTIPLE EPISODES OF "ALTERED MENTAL STATUS" -MULTIPLE HEAD INJURIES DUE TO REPORTED DOMESTIC ABUSE -CHRONIC RENAL FAILURE--NO DIALYSIS -CHRONIC ABDOMINAL PAIN COMPLAINTS; -GASTRITIS -HEPATITIS C--NO TREATMENT -CHRONIC NECK AND BACK PAIN; POOR AMBULATION -ANEMIA OF CHRONIC DISEASE -LONG HISTORY OF NON-COMPLIANCE IN ALL ASPECTS OF CARE Physical Exam Vital Signs - First Documented 10/21/20 10/21/20 01:25 02:29 Temp 36.5 Pulse 90 Resp 20 B/P (MAP) 140/90 (107) Pulse Ox 95 O2 Delivery Nasal Cannula Capillary Refill : Height: 5'3.00" Weight: 155lbs. 8.0oz. 70.805389mh; 32.00 BMI Method:Stated General Appearance: other (Disheveled, jerking halting motions) Eyes: Bilateral Eye Normal Inspection, Bilateral Eye PERRL, Bilateral Eye EOMI HEENT: PERRL/EOMI, pharynx normal Neck: full range of motion, normal inspection Respiratory: lungs clear, normal breath sounds, no respiratory distress, no accessory muscle use Cardiovascular: normal peripheral pulses, regular rate, rhythm Gastrointestinal: normal bowel sounds, soft, no organomegaly Extremities: normal range of motion, normal inspection, normal capillary refill Neurologic/Psychiatric: alert, oriented x 3 Skin: normal color, warm/dry Procedures/Interventions Date of ETT Placement: Sep 17, 2019 Time of ETT Placement: 1745 Progress/Results/Core Measures Suspected Sepsis SIRS Temperature: Pulse: Respiratory Rate: Laboratory Tests 10/21/20 01:45: White Blood Count 8.0 Blood Pressure / Mean: Laboratory Tests 10/21/20 01:45: Creatinine 1.45H, Platelet Count 122L, Total Bilirubin 0.2 Results/Orders Lab Results Laboratory Tests Test 10/21/20 01:35 10/21/20 01:45 10/21/20 01:50 10/21/20 02:05 Range/Units Coronavirus 2019 (YARITZA) Negative Negative White Blood Count 8.0 4.3-11.0 10^3/uL Red Blood Count 3.70 L 3.80-5.11 10^6/uL Hemoglobin 10.1 L 11.5-16.0 g/dL Hematocrit 33 L 35-52 % Mean Corpuscular Volume 90 80-99 fL Mean Corpuscular Hemoglobin 27 25-34 pg Mean Corpuscular Hemoglobin Concent 31 L 32-36 g/dL Red Cell Distribution Width 16.5 H 10.0-14.5 % Platelet Count 122 L 130-400 10^3/uL Mean Platelet Volume 10.9 9.0-12.2 fL Immature Granulocyte % (Auto) 1 % Neutrophils (%) (Auto) 65 42-75 % Lymphocytes (%) (Auto) 26 12-44 % Monocytes (%) (Auto) 5 0-12 % Eosinophils (%) (Auto) 2 0-10 % Basophils (%) (Auto) 0 0-10 % Neutrophils # (Auto) 5.2 1.8-7.8 10^3/uL Lymphocytes # (Auto) 2.1 1.0-4.0 10^3/uL Monocytes # (Auto) 0.4 0.0-1.0 10^3/uL Eosinophils # (Auto) 0.2 0.0-0.3 10^3/uL Basophils # (Auto) 0.0 0.0-0.1 10^3/uL Immature Granulocyte # (Auto) 0.1 0.0-0.1 10^3/uL Sodium Level 135 135-145 MMOL/L Potassium Level 5.3 H 3.6-5.0 MMOL/L Chloride Level 103 98-107 MMOL/L Carbon Dioxide Level 20 L 21-32 MMOL/L Anion Gap 12 5-14 MMOL/L Blood Urea Nitrogen 22 H 7-18 MG/DL Creatinine 1.45 H 0.60-1.30 MG/DL Estimat Glomerular Filtration Rate 37 BUN/Creatinine Ratio 15 Glucose Level 97 70-105 MG/DL Calcium Level 8.9 8.5-10.1 MG/DL Corrected Calcium 9.2 8.5-10.1 MG/DL Total Bilirubin 0.2 0.1-1.0 MG/DL Aspartate Amino Transf (AST/SGOT) 25 5-34 U/L Alanine Aminotransferase (ALT/SGPT) 33 0-55 U/L Alkaline Phosphatase 106 40-136 U/L C-Reactive Protein High Sensitivity 2.51 H 0.00-0.50 MG/DL Total Protein 7.9 6.4-8.2 GM/DL Albumin 3.6 3.2-4.5 GM/DL Lipase 42 8-78 U/L Blood Gas Puncture Site NOT INDICATED Blood Gas Patient Temperature 94.5 Arterial Blood pH 7.38 7.37-7.43 Arterial Blood Partial Pressure CO2 38 35-45 MMHG Arterial Blood Partial Pressure O2 51 L 79-93 MMHG Arterial Blood HCO3 23 23-27 MMOL/L Arterial Blood Total CO2 24.0 21.0-31.0 MMOL/L Arterial Blood Oxygen Saturation 89 L 94-100 % Arterial Blood Base Excess -2.1 -2.5-2.5 MMOL/L Dominguez Test NA Blood Gas Ventilator Setting NO Blood Gas Inspired Oxygen 1L Urine Color YELLOW Urine Clarity CLEAR Urine pH 6.0 5-9 Urine Specific [place] 1.015 L 1.016-1.022 Urine Protein TRACE H NEGATIVE Urine Glucose (UA) NEGATIVE NEGATIVE Urine Ketones NEGATIVE NEGATIVE Urine Nitrite NEGATIVE NEGATIVE Urine Bilirubin NEGATIVE NEGATIVE Urine Urobilinogen 0.2 < = 1.0 MG/DL Urine Leukocyte Esterase NEGATIVE NEGATIVE Urine RBC (Auto) NEGATIVE NEGATIVE Urine RBC NONE /HPF Urine WBC NONE /HPF Urine Squamous Epithelial Cells 2-5 /HPF Urine Crystals PRESENT H /LPF Urine Amorphous Sediment MOD SABRA URATES H /LPF Urine Bacteria TRACE /HPF Urine Casts NONE /LPF Urine Mucus SMALL H /LPF Urine Culture Indicated NO Urine Opiates Screen NEGATIVE NEGATIVE Urine Oxycodone Screen NEGATIVE NEGATIVE Urine Methadone Screen NEGATIVE NEGATIVE Urine Propoxyphene Screen NEGATIVE NEGATIVE Urine Barbiturates Screen POSITIVE H NEGATIVE Ur Tricyclic Antidepressants Screen NEGATIVE NEGATIVE Urine Phencyclidine Screen NEGATIVE NEGATIVE Urine Amphetamines Screen POSITIVE H NEGATIVE Urine Methamphetamines Screen POSITIVE H NEGATIVE Urine Benzodiazepines Screen NEGATIVE NEGATIVE Urine Cocaine Screen NEGATIVE NEGATIVE Urine Cannabinoids Screen NEGATIVE NEGATIVE My Orders Orders - INDRA,MICHAEL J Covid 19 Inhouse Test (10/21/20 01:36) Ua Culture If Indicated (10/21/20 01:36) Cbc With Automated Diff (10/21/20 01:36) Comprehensive Metabolic Panel (10/21/20 01:36) Hs C Reactive Protein (10/21/20 01:36) Chest 1 View, Ap/Pa Only (10/21/20 01:36) Arterial Blood Gas (10/21/20 01:36) Drug Screen Stat (Urine) (10/21/20 01:36) Lipase (10/21/20 01:36) Ct Abdomen/Pelvis Wo (10/21/20 02:28) Vital Signs/I&O 10/21/20 10/21/20 10/21/20 01:25 02:29 05:10 Temp 36.5 36.5 Pulse 90 82 82 Resp 20 20 B/P (MAP) 140/90 (107) 160/90 (113) 160/90 (113) Pulse Ox 95 98 98 O2 Delivery Nasal Cannula Room Air Room Air Capillary Refill : Progress Note #1: Time: 02:22 Progress Note Patient appears sure with the appearance of methamphetamine intoxication. Her COPD was dealt with by a DuoNeb given by EMS. She has oxygen sats 97% on 1 L by nasal cannula. Her normal baseline is 2 L. Her ABG confirms she is not retaining CO2. We will get a chest x-ray and a CT with noncontrast since we were not able to get an IV on her. She is complaining of left lower quadrant pain so constipation, diverticulitis, gynecologic etc. Shortly after leaving the room the patient says she is no longer having any pain and does not want anything for pain. Her rapid Covid antigen was negative. Because she is not having any respiratory distress and is at baseline we are no longer considering her a person under investigation. Progress Note #2: Time: 04:28 Progress Note The patient is resting comfortably with no further deterioration. She is no longer having any discomfort in her abdomen nor shortness of air or wheezing. She has not required any further intervention such as DuoNeb. She has been on 1 L by nasal cannula. Her vital signs are acceptable and her abdominal exam is no longer concerning. Plan to have her follow-up with her primary care provider. Diagnostic Imaging Diagonstic Imaging: Xray Plain Films/CT/US/NM/MRI: chest Comments No acute cardiopulmonary processes noted on 1 view chest x-ray. Reviewed: Reviewed by Me Diagonstic Imaging: CT Plain Films/CT/US/NM/MRI: abdomen, pelvis Comments Evaluation of the bowel mucosa slightly limited without contrast. No definite focal asymmetry suggested. No evidence for bowel obstruction. No free intraperitoneal fluid or pseudoperitoneum. Mild mucosal prominence of the bladder presumed related to under distention. Gas within the bladder is presume related to recent bladder catheterization. Reviewed: Reviewed by Me Departure Impression Primary Impression: Methamphetamine abuse Additional Impressions: COPD (chronic obstructive pulmonary disease) Qualified Codes: J44.9 - Chronic obstructive pulmonary disease, unspecified Abdominal pain Qualified Codes: R10.32 - Left lower quadrant pain Disposition: HOME, SELF-CARE Condition: Stable Departure-Patient Inst. Decision time for Depature: 04:28 Referrals: [facility] (PCP/Family) Primary Care Physician Patient Instructions: Chronic Obstructive Pulmonary Disease (COPD) (DC) Add. Discharge Instructions: I did not find anything dangerous to explain your abdominal pain today. Drink plenty of fluids and use Tylenol and ibuprofen as necessary. If your symptoms continue tomorrow then call your primary care doctor and establish an appointment next week. Return to the ER if you are having significant chest pain shortness of air or other worrisome symptoms. MICHAEL BURRELL Oct 21, 2020 01:46
[2020-10-21 01:53] LABS: BASOPHILS % (AUTO) 0 % (0-10); EOSINOPHILS # (AUTO) 0.2 10^3/uL (0.0-0.3); EOSINOPHILS % (AUTO) 2 % (0-10); HEMATOCRIT 33 % (35-52); HEMOGLOBIN 10.1 g/dL (11.5-16.0); LYMPHOCYTES # (AUTO) 2.1 10^3/uL (1.0-4.0); LYMPHOCYTES % (AUTO) 26 % (12-44); MEAN CORPUSCULAR HEMOGLOBIN 27 pg (25-34); MEAN CORPUSCULAR HGB CONC 31 g/dL (32-36); MEAN CORPUSCULAR VOLUME 90 fL (80-99); MEAN PLATELET VOLUME 10.9 fL (9.0-12.2); MONOCYTES # (AUTO) 0.4 10^3/uL (0.0-1.0); MONOCYTES % (AUTO) 5 % (0-12); NEUTROPHILS # (AUTO) 5.2 10^3/uL (1.8-7.8); NEUTROPHILS % (AUTO) 65 % (42-75); PLATELET COUNT 122 10^3/uL (130-400)
[2020-10-21 02:01] LABS: ABG BASE EXCESS -2.1 MMOL/L (-2.5-2.5); ABG OXYGEN SATURATION 89 % (94-100); ABG PCO2 38 MMHG (35-45); ABG PH 7.38 (7.37-7.43); ABG PO2 51 MMHG (79-93)
[2020-10-21 02:02] LABS: INSPIRED O2 1L; VENTILATOR NO
[2020-10-21 02:03] LABS: ALBUMIN 3.6 GM/DL (3.2-4.5); POTASSIUM 5.3 MMOL/L (3.6-5.0)
[2020-10-21 02:03] LABS: PATIENT TEMP 94.5
[2020-10-21 02:05] LABS: CALCIUM 8.9 MG/DL (8.5-10.1)
[2020-10-21 02:06] LABS: TOTAL PROTEIN 7.9 GM/DL (6.4-8.2)
[2020-10-21 02:08] LABS: BILIRUBIN,TOTAL 0.2 MG/DL (0.1-1.0)
[2020-10-21 02:10] LABS: CREATININE SERUM 1.45 MG/DL (0.60-1.30)
[2020-10-21 02:14] LABS: BILIRUBIN,URINE NEGATIVE (NEGATIVE); CLARITY,URINE CLEAR; COLOR,URINE YELLOW; GLUCOSE, URINE (UA) NEGATIVE (NEGATIVE); KETONES,URINE NEGATIVE (NEGATIVE); LEUKOCYTE ESTERASE ,URINE NEGATIVE (NEGATIVE); NITRITE,URINE NEGATIVE (NEGATIVE); PROTEIN,URINE TRACE (NEGATIVE)
[2020-10-21 02:23] LABS: AMORPHOUS SEDIMENT,UR MOD AMOR URATES /LPF; AMPHETAMINE SCREEN, URINE POSITIVE (NEGATIVE); BACTERIA,URINE TRACE /HPF; BARBITURATE SCREEN URINE POSITIVE (NEGATIVE); BENZODIAZEPINES SCREEN URINE NEGATIVE (NEGATIVE); CANNABINOID SCREEN, URINE NEGATIVE (NEGATIVE); COCAINE SCREEN URINE NEGATIVE (NEGATIVE); METHADONE STAT NEGATIVE (NEGATIVE); METHAMPHETAMINE SCREEN URINE S POSITIVE (NEGATIVE); OPIATE SCREEN URINE NEGATIVE (NEGATIVE); OXYCODONE STAT NEGATIVE (NEGATIVE); PROPOXYPHENE STAT NEGATIVE (NEGATIVE); TRICYCLIC ANTIDEPRESSANTS SCRE NEGATIVE (NEGATIVE)
--- NOTE | 2020-10-21 02:30 | NUR ---
Pt to CT/Radiology
--- NOTE | 2020-10-21 02:50 | NUR ---
Pt back from CT.
[2020-10-21 05:10] VITALS: BP 160/90
--- NOTE | 2020-10-21 06:22 | Diagnostic Imaging Report ---
HISTORY: Shortness of air. TECHNIQUE: Frontal view of the chest. COMPARISON: 06/15/2020 FINDINGS: Lung volumes are low. Mild opacity at the right lung base appears chronic, likely scarring. No pleural effusion or pneumothorax is seen. The cardiac silhouette is stable in size. The left-sided Port-A-Cath projects over the low SVC. IMPRESSION: 1. Low lung volumes with chronic scarring in the right lung base. No new consolidation is seen. Dictated by: Dictated on workstation # [id number]
--- NOTE | 2020-10-21 06:26 | Diagnostic Imaging Report ---
PROCEDURE: CT abdomen and pelvis without contrast. TECHNIQUE: Multiple contiguous axial images were obtained through the abdomen and pelvis without the use of intravenous contrast. Auto Exposure Controls were utilized during the CT exam to meet ALARA standards for radiation dose reduction. INDICATION: Left lower quadrant abdominal pain. COMPARISON: 11/18/2019 FINDINGS: There is chronic scarring/atelectasis in the dependent lungs. The heart is normal in size. The liver demonstrates no focal lesions. It is upper normal in size. The spleen appears normal. The pancreas is unremarkable. The adrenal glands appear normal. The right kidney is markedly atrophic. The left kidney demonstrates multiple cortical scars and irregular lobular contour. This appears to be similar to the prior exam. The bowel loops are nondistended without obstruction. There is moderate stool in the ascending colon. There is diastasis of the rectus abdominis musculature with mesh placed anteriorly. There is mild outpouching of bowel in this location but no evidence of strangulation or obstruction. No free fluid or free air is seen. There is a small amount of air in the bladder. There are degenerative changes in the spine, with what appears to be a chronic fusion of T12-L1. IMPRESSION: 1. No acute abdominal abnormality is seen. 2. Small amount of air in the urinary bladder is likely due to recent instrumentation. No significant changes from the preliminary report. Dictated by: Dictated on workstation # [id number]
== END 2020-10-21 04:33 | disposition home or self-care (01) ==
LOC: EDUNIT# 01:22 → ER 01:23
DX: F15.10 Other stimulant abuse, uncomplicated (principal); J44.9 Chronic obstructive pulmonary disease, unspecified; R10.32 Left lower quadrant pain; I25.2 Old myocardial infarction; I25.10 Atherosclerotic heart disease of native coronary artery without angina pectoris; I10 Essential (primary) hypertension; K21.9 Gastro-esophageal reflux disease without esophagitis; F41.9 Anxiety disorder, unspecified; F31.9 Bipolar disorder, unspecified; G40.909 Epilepsy, unspecified, not intractable, without status epilepticus; F17.210 Nicotine dependence, cigarettes, uncomplicated; Z87.820 Personal history of traumatic brain injury; Z85.41 Personal history of malignant neoplasm of cervix uteri; Z20.828 Contact with and (suspected) exposure to other viral communicable diseases; Z82.49 Family history of ischemic heart disease and other diseases of the circulatory system; Z80.9 Family history of malignant neoplasm, unspecified; Z83.3 Family history of diabetes mellitus
CPT/HCPCS: 71045; 74176; 80053; 80306; 81000; 82805; 83690; 85025; 86141; 99285; U0002; 36415; 87635

== ENCOUNTER 2021-01-29 05:52 | Outpatient (RCR) | payer MEDICAID ==
[~2021-01-29] VITALS: Ht 165 cm; Wt 95.0 kg
[~2021-01-29 05:52] MED LIST changes: +CEPH-507 PO; +ERGO1250 PO; -ERGO50006 PO; -LISI-552 PO; -LISI10TA2 PO; +LISI10TA25 PO; +LISI20TA26 PO; +QUET25TA34 PO; -QUET25TA73 PO; -SULF1TAB35 PO
[2021-01-29 06:15] VITALS: BP 161/104
[2021-02-11] MEDS ORDERED: CLIN300C12 PO (02:04)
[2021-02-26] MEDS ORDERED: DIVA250T2 PO (10:36)
[2021-02-26] MEDS ORDERED: LEVE500T6 PO (10:36)
[2021-03-08] MEDS ORDERED: RT-ALBUINH IH (07:53)
== END 2021-04-29 | disposition home or self-care (01) ==
LOC: SDC 05:52
PROVIDERS: ATTEND Nurse Practitioner Community Health
DX: Z45.2 Encounter for adjustment and management of vascular access device (principal)
CPT/HCPCS: 96523

== ENCOUNTER 2021-02-11 00:35 | Emergency (ER) | payer MEDICAID ==
[~2021-02-11] VITALS: Ht 165 cm; Wt 75.0 kg
[~2021-02-11 00:35] MED LIST changes: -ERGO1250 PO; +ERGO50006 PO; +SULF1TAB35 PO
--- NOTE | 2021-02-11 01:08 | ED Dyspnea ---
General Stated Complaint: RESPIRATORY DISTRESS Source of Information: Patient, EMS Exam Limitations: No Limitations History of Present Illness Date Seen by Provider: February 11, 2021 Time Seen by Provider: 00:45 Initial Comments Michelle is a 60-year-old female who presents to the emergency department via EMS this evening with a chief complaint of shortness of breath and cough. Reportedly the patient choked and aspirated some tea that she was drinking a couple of days ago. Patient states that she has a terrible sore throat. She states she has a terrible cough. She is quite agitated. EMS reports that the patient over her walker when they arrived having difficulty breathing. It is difficult to get a history from the patient as she speaks in a whispered voice. She complains of multiple sores to her bilateral lower extremities and lower abdominal discomfort. No dysuria, urgency or frequency. Extensive review of the medical record reveals that the patient has a history of methamphetamine abuse, coronary artery disease, COPD. The patient is on daily oxygen therapy at 2 to 3 L per nasal cannula. She is currently satting 97% on 3 L. She is not coughing. She becomes quite agitated with any evaluation of the sores to her bilateral lower extremities. No chest pain. She states that she is short of breath this evening. All other review of systems reviewed and negative except as stated. Timing/Duration: 1 Week, Episodic Severity: Moderate Activities at Onset: None Prior Episodes/Possible Cause: Frequent Episodes Modifying Factors: Improves With Albuterol Inhaler, Improves With Albuterol Nebulizer Associated Symptoms: Anxiety, Cough Allergies and Home Medications Allergies Coded Allergies: nitrous oxide (Verified Allergy, Unknown, 06/08/07) Home Medications Acetaminophen 500 Mg Tablet, 1,000 MG PO Q6H PRN for PAIN-MILD, (Reported) Amlodipine Besylate 10 Mg Tablet, 5 MG PO BID, (Reported) TAKES OF A 10MG TAB TWICE DAILY Carvedilol 25 Mg Tab, 25 MG PO BID, (Reported) LAST FILLED 12-17-2019 #60 Cefdinir 300 Mg Capsule, 300 MG PO DAILY Prescribed by: QUIN JONES on 06/15/20 1204 Cephalexin 500 Mg Capsule, 500 MG PO TID Prescribed by: NEERAJ VILLA on 10/26/20 2115 Clindamycin HCl 300 Mg Capsule, 300 MG PO QID Prescribed by: ADEBAYO FATIMA on 02/11/21 0204 Clonidine HCl 0.2 Mg Tablet, 0.2 MG PO BID, (Reported) Cyclobenzaprine HCl 10 Mg Tablet, 10 MG PO TID PRN for MUSCLE SPASMS, (Reported) Ergocalciferol (Vitamin D2) 1,250 Mcg Capsule, 1,250 MCG PO WEEK, (Reported) Famotidine 20 Mg Tablet, 20 MG PO BID, (Reported) Hydralazine HCl 100 Mg Tablet, 100 MG PO TID, (Reported) Hydroxyzine HCl 25 Mg Tablet, 25 MG PO BID PRN for ANXIETY, (Reported) Levetiracetam 500 Mg Tablet, 1,000 MG PO BID LAST FILLED 12-07-2019 #120 TAKES 2 (500MG) TABS TWICE DAILY Prescribed by: MATTHEW DAVID on 02/08/20 1105 Loratadine 10 Mg Tablet, 10 MG PO DAILY, (Reported) Metoprolol Succinate 100 Mg Tab.er.24h, 100 MG PO DAILY, (Reported) Nitrofurantoin Monohyd/M-Cryst 100 Mg Capsule, 1 TAB PO BID Prescribed by: MATTHEW DAVID on 02/08/20 1109 Oxcarbazepine 300 Mg Tablet, 600 MG PO BID LAST FILLED 12-07-2019 #120 TAKES 2 (300MG)TABS TWICE DAILY Prescribed by: MATTHEW DAVID on 02/08/20 1105 Phenobarbital 64.8 Mg Tablet, 129.6 MG PO BID, (Reported) TAKES 2 (64.8MG) TABS TO EQUAL 129.6 Prazosin HCl 1 Mg Capsule, 1 MG PO HS, (Reported) Patient Home Medication List Home Medication List Reviewed: Yes Review of Systems Review of Systems Constitutional: see HPI EENTM: throat pain Respiratory: cough, short of breath Cardiovascular: no symptoms reported Gastrointestinal: abdominal pain Genitourinary: no symptoms reported Musculoskeletal: muscle twitching Skin: other (sores to her legs) Psychiatric/Neurological: Anxiety, Emotional Problems All Other Systems Reviewed Negative Unless Noted: Yes Past Oubmjqm-Iiytil-Lczibv Hx Patient Social History Drug of Choice: + IV METH USE, THC USE Type Used: Cigarettes 2nd Hand Smoke Exposure: No Recent Hopitalizations: No Immunizations Up To Date Tetanus Booster (TDap): Less than 5yrs PED Vaccines UTD: No Date of Pneumonia Vaccine: Jul 13, 2012 Date of Influenza Vaccine: Jul 15, 2019 Seasonal Allergies Seasonal Allergies: No Past Medical History Surgeries: Yes (SEE BELOW) Abdominal, Adenoidectomy, Cardiac, Section, Hysterectomy, Oophorectomy, Renal, Tonsillectomy Respiratory: Yes (SUPPOSED TO BE ON O2 AT 2 1/2-3L/NC AT HS & PRN;HX OF RESP FAILURE W/INTUBA) COPD Currently Using CPAP: No Currently Using BIPAP: No Cardiac: Yes Cardiomyopathy, Coronary Artery Disease, Endocarditis, Heart Attack, Hypertension, Peripheral Vascular, Valvular Heart Disease Neurological: Yes Concussion, Seizure Disorder, Stroke, Traumatic Brain Injury 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 Disorders: No Female 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 [employer]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, Menopausal Sexually Transmitted Disease: No HIV/AIDS: No Genitourinary: Yes Kidney Infection, Bladder Infection, Kidney Stones, Renal Failure, UTI-Chronic Gastrointestinal: Yes Abdominal Hernia, Gastroesophageal Reflux, Pancreatitis, Hepatitis Musculoskeletal: Yes (CHRONIC NECK AND BACK PAIN; POOR AMBULATION) Arthritis, Chronic Back Pain Endocrine: Yes (HGB AIC WAS 6.5 ON 12/23/18) Diabetes, Non-Insulin dep HEENT: Yes (POOR DENTITION) Loss of Vision: Denies Hearing Impairment: Denies Cancer: Yes Cervical Did You Recieve Any Treatments: Yes What Type of Treatment Did You: Surgical Intervention Psychosocial: Yes (POLYSUBSTANCE ABUSE) Anxiety, Bipolar, Depression Integumentary: No Blood Disorders: Yes (ANEMIA OF CHRONIC DISEASE) Adverse Reaction/Blood Tranf: No Family Medical History Abdominal aortic aneurysm 03 FATHER Alcoholism 03 FATHER 03 MOTHER 09 SISTER 09 SISTER Cancer 03 FATHER Cataract 03 FATHER 03 MOTHER Chest pain 03 MOTHER Family history: Diabetes mellitus 03 MOTHER Family history: Hypertension 03 MOTHER Family history: Thyroid disorder 03 MOTHER Headache 09 SISTER Heart disease 03 MOTHER History of drug abuse 03 FATHER 09 SISTER Myocardial infarction 03 MOTHER No Family History of: Isael's disease Aphasia Cancer of colon Congenital heart disease Congestive heart failure Cystic fibrosis Dementia Dysphagia Family history: Allergy Family history: Alzheimer's disease Family history: Arthritis Family history: Asthma Family history: Breast disease Family history: Cardiovascular disease Family history: Coronary thrombosis Family history: Gastrointestinal disease Family history: Glaucoma Family history: Osteoporosis Hearing loss Hereditary disease History of - anemia History of - disorder History of - respiratory disease Human immunodeficiency virus (HIV) seropositivity Hypercholesterolemia Infertile Kidney disease Malignant neoplasm of lung Parkinson's disease Prostate cancer Psychotic disorder Seizure disorder Stroke Tuberculosis Visual impairment AAA, Heart Disease, Diabetes -SOCIAL HISTORY: -ETOH -OCCASIONAL USE -DRUGS-EXTENSIVE HISTORY OF IV METH USE, THC USE -SMOKES AT LEAST 1 PPD PAST SURGICAL HISTORY: -MULTIPLE CENTRAL LINES/PICC LINES -PORT LEFT CHEST PRESENT 07/29/20 -DIAGNOSTIC LAPAROSCOPY/LAPAROTOMY -MULTIPLE CYSTOSCOPIES WITH RIGHT URETERAL STENT PLACED AND LATER REMOVED -I&D OF ABSCESSES -MULTIPLE CARDIAC CATHS--NO INTERVENTION -HYSTERECTOMY WITH LATER BILATERAL SALPINGO-OOPHORECTOMY -UMBILICAL HERNIA REPAIR WITH MESH -BILATERAL MYRINGOTOMY TUBES -BLADDER SUSPENSION -MULTIPLE LEFT LEG SURGERIES DUE TO TRAUMA A CHILD -EGD -LEFT MASTOIDECTOMY NOTED ON CT 08/26/19--PT UNAWARE OF THIS PAST MEDICAL HISTORY: -HAS BEEN INTUBATED FOR RESPIRATORY FAILURE--LAST TIME WAS 08/26/19 -SUPPOSED TO BE ON O2 AT HS AT 2 1/2-3L/NC AND PRN. -NON-ISCHEMIC CARDIOMYOPATHY -HAS HAD EXTERNAL DEFIBRILLATOR IN PAST -CHRONIC CHEST PAIN COMPLAINTS, WITH ELEVATED TROPONIN MULTIPLE TIMES AND DX WITH NSTEMI 02/2018--LAST CARDIAC CATH 02/2018--SHOWED MILD CAD/NO INTERVENTION LAST LEXISCAN STRESS TEST WAS NORMAL 07/12/19. LAST ECHOCARDIOGRAM 08/20/19--NON-ISCHEMIC CARDIOMYOPATHY WITH EF 55-65% -MITRAL REGURGITATION -TRICUSPID VALVE VEGETATIONS 2013 -CHF -MULTIPLE CARDIAC CATHS-NO INTERVENTION -POOR VENOUS ACCESS -TRAUMATIC BRAIN INJURY CHILD; -CVA WITH LEFT SIDED WEAKNESS -POOR BALANCE--IS SUPPOSED TO USE A WALKER -MULTIPLE EPISODES OF "ALTERED MENTAL STATUS" -MULTIPLE HEAD INJURIES DUE TO REPORTED DOMESTIC ABUSE -CHRONIC RENAL FAILURE--NO DIALYSIS -CHRONIC ABDOMINAL PAIN COMPLAINTS; -GASTRITIS -HEPATITIS C--NO TREATMENT -CHRONIC NECK AND BACK PAIN; POOR AMBULATION -ANEMIA OF CHRONIC DISEASE -LONG HISTORY OF NON-COMPLIANCE IN ALL ASPECTS OF CARE Physical Exam Vital Signs Vital Signs - First Documented 02/11/21 00:37 Temp 36.9 Pulse 97 Resp 24 B/P (MAP) 109/76 (87) Pulse Ox 95 O2 Delivery Nasal Cannula O2 Flow Rate 3.00 FiO2 95 Capillary Refill : Height, Weight, BMI Height: 5'3.00" Weight: 155lbs. 8.0oz. 70.040326el; 35.00 BMI Method:Stated General Appearance: Anxious, Chronically ill, Moderate Distress HEENT: Normal ENT Inspection, Pharynx Normal Neck: Supple Respiratory: Lungs Clear, Normal Breath Sounds, No Accessory Muscle Use, No Respiratory Distress; No Decreased Breath Sounds, No Respiratory Distress, No Rhonci, No Stridor, No Wheezing Cardiovascular: Regular Rate, Rhythm Gastrointestinal: Soft, Tenderness (diffuse tenderness; inconsistent exam; bowel sounds are present) Extremity: Normal Capillary Refill, Swelling Neurologic/Psychiatric: Alert, Oriented x3, No Motor/Sensory Deficits, Normal Mood/Affect Skin: Normal Color, Warm/Dry, Other (Multiple ulcerations and wounds to the bilateral lower extremities. Most of these are open and draining. The patient does have a cellulitic area of skin to the left upper anterior thigh. I nduration of about 3 cm in the center of this area. She has another area to the right lateral thigh that is about 4 cm in diameter and very fluctuant and tender to palpation.) Focused Exam Lactate Level 02/11/21 01:00: Lactic Acid Level 1.46 Lactic Acid Level Laboratory Tests Test 02/11/21 01:00 Lactic Acid Level 1.46 MMOL/L (0.50-2.00) Procedures/Interventions Date of ETT Placement: Sep 17, 2019 Time of ETT Placement: 1745 Progress/Results/Core Measures Results/Orders Lab Results Laboratory Tests Test 02/11/21 01:00 Range/Units White Blood Count 14.5 H 4.3-11.0 10^3/uL Red Blood Count 3.60 L 3.80-5.11 10^6/uL Hemoglobin 9.8 L 11.5-16.0 g/dL Hematocrit 32 L 35-52 % Mean Corpuscular Volume 88 80-99 fL Mean Corpuscular Hemoglobin 27 25-34 pg Mean Corpuscular Hemoglobin Concent 31 L 32-36 g/dL Red Cell Distribution Width 15.4 H 10.0-14.5 % Platelet Count 533 H 130-400 10^3/uL Mean Platelet Volume 10.1 9.0-12.2 fL Immature Granulocyte % (Auto) 0 % Neutrophils (%) (Auto) 80 H 42-75 % Lymphocytes (%) (Auto) 11 L 12-44 % Monocytes (%) (Auto) 5 0-12 % Eosinophils (%) (Auto) 4 0-10 % Basophils (%) (Auto) 0 0-10 % Neutrophils # (Auto) 11.6 H 1.8-7.8 10^3/uL Lymphocytes # (Auto) 1.6 1.0-4.0 10^3/uL Monocytes # (Auto) 0.7 0.0-1.0 10^3/uL Eosinophils # (Auto) 0.5 H 0.0-0.3 10^3/uL Basophils # (Auto) 0.0 0.0-0.1 10^3/uL Immature Granulocyte # (Auto) 0.1 0.0-0.1 10^3/uL Neutrophils % (Manual) 79 % Lymphocytes % (Manual) 16 % Monocytes % (Manual) 3 % Eosinophils % (Manual) 2 % Hypochromasia SLIGHT Anisocytosis SLIGHT Microcytosis SLIGHT Sodium Level 135 135-145 MMOL/L Potassium Level 4.9 3.6-5.0 MMOL/L Chloride Level 102 98-107 MMOL/L Carbon Dioxide Level 24 21-32 MMOL/L Anion Gap 9 5-14 MMOL/L Blood Urea Nitrogen 30 H 7-18 MG/DL Creatinine 1.35 H 0.60-1.30 MG/DL Estimat Glomerular Filtration Rate 40 BUN/Creatinine Ratio 22 Glucose Level 111 H 70-105 MG/DL Lactic Acid Level 1.46 0.50-2.00 MMOL/L Calcium Level 8.4 L 8.5-10.1 MG/DL Corrected Calcium 9.0 8.5-10.1 MG/DL Total Bilirubin 0.2 0.1-1.0 MG/DL Aspartate Amino Transf (AST/SGOT) 14 5-34 U/L Alanine Aminotransferase (ALT/SGPT) 17 0-55 U/L Alkaline Phosphatase 92 40-136 U/L Total Protein 7.6 6.4-8.2 GM/DL Albumin 3.2 3.2-4.5 GM/DL My Orders Orders - ADEBAYO FATIMA MD Cbc With Automated Diff (02/11/21 00:57) Comprehensive Metabolic Panel (02/11/21 00:57) Blood Culture (02/11/21 00:57) Chest 1 View, Ap/Pa Only (02/11/21 00:57) Ed Iv/Invasive Line Start (02/11/21 00:57) Ed Iv/Invasive Line Start (02/11/21 00:57) Vital Signs Adult Sepsis Patie Q15M (02/11/21 00:57) O2 (02/11/21 00:57) Remove Rings In Anticipation O (02/11/21 00:57) Lactic Acid Analyzer (02/11/21 00:57) Manual Differential (02/11/21 01:00) Vital Signs/I&O 02/11/21 02/11/21 00:37 00:37 Temp 36.9 Pulse 97 Resp 24 B/P (MAP) 109/76 (87) Pulse Ox 95 95 O2 Delivery Nasal Cannula O2 Flow Rate 3.00 FiO2 95 Progress Progress Note : Time: 02:01 Progress Note Patient's labs reviewed and evaluated, mildly elevated white blood cell count 14,000. Chemistry looks to be within normal limits compared to prior. Patient is reevaluated, resting comfortably lying on her left side. She is now speaking normally. No longer in a whispered voice. I have talked to the patient about the abscesses and apparent cellulitis to her bilateral lower extremities. She will need to be placed on antibiotics to help with this. I am going to write a prescription for clindamycin for the patient. She verbalizes understanding. She has no clinical or objective findings to warrant further studies from the emergency department. Lactic acid is less than 2. She is not tachycardic or febrile. I have no concerns for sepsis at this time. Patient is strongly encouraged to follow-up with her primary care physician regarding the infection and abscesses. All questions are sought and answered. Initial ECG Impression Date: February 11, 2021 Initial ECG Impression Time: 00:47 Initial ECG Rate: 95 Initial ECG Rhythm: Normal Sinus Initial ECG Intervals: Normal Initial ECG Impression: Normal Comment Q waves inferiorly Diagnostic Imaging Diagonstic Imaging: Xray Plain Films/CT/US/NM/MRI: chest Comments no effusions or infiltrates; normal mediastinal structures; interpreted by me Departure Impression Primary Impression: Dyspnea Qualified Codes: R06.02 - Shortness of breath Additional Impressions: Cellulitis and abscess of left lower extremity Cellulitis and abscess of right lower extremity Disposition: 01 HOME, SELF-CARE Condition: Stable Departure-Patient Inst. Decision time for Depature: 02:02 Referrals: [facility] (PCP/Family) Primary Care Physician Patient Instructions: Cellulitis (Skin Infection), Adult (DC) Add. Discharge Instructions: Try and keep the wounds on your lower legs clean dry and covered. I have written you a prescription for antibiotics, clindamycin. Take this medication 4 times a day for the next 7 days. Follow-up with your primary care doctor on Friday. Come back to the emergency department if you have any worsening signs of infection, redness, swelling, drainage, fever or if any other emergent, concerning symptoms develop. Scripts Clindamycin HCl (Clindamycin HCl) 300 Mg Capsule 300 MG PO QID for 7 Days, #28 CAP Prov: ADEBAYO FATIMA MD 02/11/21 ADEBAYO FATIMA MD February 11, 2021 01:08
[2021-02-11 01:12] LABS: BASOPHILS % (AUTO) 0 % (0-10); EOSINOPHILS # (AUTO) 0.5 10^3/uL (0.0-0.3); EOSINOPHILS % (AUTO) 4 % (0-10); HEMATOCRIT 32 % (35-52); HEMOGLOBIN 9.8 g/dL (11.5-16.0); LYMPHOCYTES # (AUTO) 1.6 10^3/uL (1.0-4.0); LYMPHOCYTES % (AUTO) 11 % (12-44); MEAN CORPUSCULAR HEMOGLOBIN 27 pg (25-34); MEAN CORPUSCULAR HGB CONC 31 g/dL (32-36); MEAN CORPUSCULAR VOLUME 88 fL (80-99); MEAN PLATELET VOLUME 10.1 fL (9.0-12.2); MONOCYTES # (AUTO) 0.7 10^3/uL (0.0-1.0); MONOCYTES % (AUTO) 5 % (0-12); NEUTROPHILS # (AUTO) 11.6 10^3/uL (1.8-7.8); NEUTROPHILS % (AUTO) 80 % (42-75); PLATELET COUNT 533 10^3/uL (130-400); WHITE BLOOD COUNT 14.5 10^3/uL (4.3-11.0)
[2021-02-11 01:22] LABS: ALBUMIN 3.2 GM/DL (3.2-4.5); POTASSIUM 4.9 MMOL/L (3.6-5.0)
[2021-02-11 01:23] LABS: CALCIUM 8.4 MG/DL (8.5-10.1)
[2021-02-11 01:24] LABS: TOTAL PROTEIN 7.6 GM/DL (6.4-8.2)
[2021-02-11 01:26] LABS: BILIRUBIN,TOTAL 0.2 MG/DL (0.1-1.0)
[2021-02-11 01:28] LABS: CREATININE SERUM 1.35 MG/DL (0.60-1.30)
[2021-02-11 01:32] LABS: ANISOCYTOSIS SLIGHT; EOSINOPHILS % (MANUAL) 2 %; HYPOCHROMASIA SLIGHT; LYMPHOCYTES % (MANUAL) 16 %; MICROCYTOSIS SLIGHT; MONOCYTES % (MANUAL) 3 %; NEUTROPHILS % (MANUAL) 79 %
[2021-02-11] MEDS ORDERED: CLIN300C12 PO (02:04)
[2021-02-11 02:15] VITALS: BP 107/53
--- NOTE | 2021-02-11 05:42 | Diagnostic Imaging Report ---
INDICATION: sepsis COMPARISON: 10/21/2019 FINDINGS: Single frontal view of the chest demonstrates normal heart size and pulmonary vascularity. The lungs are well aerated and clear. No large pleural effusion or pneumothorax is seen. The visualized osseous structures show no acute abnormalities. Left sided subclavian Port-A-Cath is seen with tip in lower SVC. IMPRESSION: 1. No acute cardiopulmonary process. Dictated by: Dictated on workstation # [id number]
== END 2021-02-11 02:15 | disposition home or self-care (01) ==
LOC: EDUNIT# 00:35 → ER 00:37
DX: R06.00 Dyspnea, unspecified (principal); L03.116 Cellulitis of left lower limb; L03.115 Cellulitis of right lower limb; I25.2 Old myocardial infarction; I10 Essential (primary) hypertension; J44.9 Chronic obstructive pulmonary disease, unspecified; I25.10 Atherosclerotic heart disease of native coronary artery without angina pectoris; K21.9 Gastro-esophageal reflux disease without esophagitis; G40.909 Epilepsy, unspecified, not intractable, without status epilepticus; F41.9 Anxiety disorder, unspecified; F31.9 Bipolar disorder, unspecified; E11.9 Type 2 diabetes mellitus without complications; Z88.8 Allergy status to other drugs, medicaments and biological substances; Z86.73 Personal history of transient ischemic attack (TIA), and cerebral infarction without residual deficits; Z79.899 Other long term (current) drug therapy
CPT/HCPCS: 36415; 71045; 80053; 83605; 85007; 85027; 87040; 93005

== ENCOUNTER 2021-02-24 15:43 | Inpatient (IN) | payer MEDICAID ==
[~2021-02-24] VITALS: Ht 162 cm; Wt 73.4 kg
[2021-02-24 16:25] LABS: ALBUMIN 3.4 GM/DL (3.2-4.5); BASOPHILS # (AUTO) 0.1 10^3/uL (0.0-0.1); BASOPHILS % (AUTO) 0 % (0-10); EOSINOPHILS # (AUTO) 0.1 10^3/uL (0.0-0.3); EOSINOPHILS % (AUTO) 1 % (0-10); HEMATOCRIT 32 % (35-52); HEMOGLOBIN 9.8 g/dL (11.5-16.0); LYMPHOCYTES # (AUTO) 1.3 10^3/uL (1.0-4.0); LYMPHOCYTES % (AUTO) 9 % (12-44); MEAN CORPUSCULAR HEMOGLOBIN 27 pg (25-34); MEAN CORPUSCULAR HGB CONC 31 g/dL (32-36); MEAN CORPUSCULAR VOLUME 86 fL (80-99); MEAN PLATELET VOLUME 10.2 fL (9.0-12.2); MONOCYTES # (AUTO) 0.7 10^3/uL (0.0-1.0); MONOCYTES % (AUTO) 5 % (0-12); NEUTROPHILS # (AUTO) 12.8 10^3/uL (1.8-7.8); NEUTROPHILS % (AUTO) 85 % (42-75); PLATELET COUNT 532 10^3/uL (130-400); POTASSIUM 4.5 MMOL/L (3.6-5.0)
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
[2021-02-24 16:27] LABS: CALCIUM 8.7 MG/DL (8.5-10.1)
[2021-02-24 16:28] LABS: ABG BASE EXCESS 3.4 MMOL/L (-2.5-2.5); ABG OXYGEN SATURATION 92 % (94-100); ABG PCO2 38 MMHG (35-45); ABG PH 7.47 (7.37-7.43); ABG PO2 63 MMHG (79-93); ABG TCO2 28.3 MMOL/L (21.0-31.0)
[2021-02-24 16:28] LABS: TOTAL PROTEIN 8.2 GM/DL (6.4-8.2)
[2021-02-24 16:29] LABS: ALLENS TEST YES-POS; INSPIRED O2 3L; PATIENT TEMP 98.2; VENTILATOR NO
[2021-02-24 16:30] LABS: BILIRUBIN,TOTAL 0.4 MG/DL (0.1-1.0)
[2021-02-24] MEDS ORDERED: BENZTROPINE 2 MG/2 ML INJ (COGENTIN) AMP IM ONE (16:30)
[2021-02-24 16:32] LABS: CREATININE SERUM 1.36 MG/DL (0.60-1.30)
[2021-02-24 16:38] LABS: BAND NEUTROPHILS 1 %; LYMPHOCYTES % (MANUAL) 10 %; MONOCYTES % (MANUAL) 3 %; NEUTROPHILS % (MANUAL) 86 %; RBC MORPH NORMAL
--- NOTE | 2021-02-24 16:49 | Diagnostic Imaging Report ---
INDICATION: Shortness of air. Time of exam: 4:42 PM Comparison is made with prior chest 02-11-2021. Left sided port has the tip overlying SVC. The lungs are clear. There is no effusion or pneumothorax. Heart size is normal. IMPRESSION: No acute cardiopulmonary process is detected. Dictated by: Dictated on workstation # [id number]
[2021-02-24] MEDS ORDERED: CEFEPIME INJECTION 1,000 MG in WATER (STERILE) FOR INJECTION 10 ML IV ONE (17:15)
[2021-02-24] MEDS ORDERED: NS IV 1000 ML 1,000 ML IV ONE (17:15)
[2021-02-24] MEDS ORDERED: NS IV 500 ML 500 ML IV ONE (17:15)
[2021-02-24] MEDS: VANCOMYCIN INJECTION 750 MG in NS (IVPB) 250 ML IV SCH ×2 (18:18→21:59)
[2021-02-24] MEDS ORDERED: VANCOMYCIN INJECTION 1,000 MG in NS (IVPB) 250 ML IV SCH (19:15)
[2021-02-24] MEDS ORDERED: PHARMACY TO DOSE IM SCH (19:15)
[2021-02-24] MEDS ORDERED: NS IV 1000 ML 1,000 ML ONE (19:28)
[2021-02-24 20:00] VITALS: BP 198/156
[2021-02-24 20:04] LABS: BILIRUBIN,URINE NEGATIVE (NEGATIVE); CLARITY,URINE CLEAR; COLOR,URINE YELLOW; GLUCOSE, URINE (UA) NEGATIVE (NEGATIVE); KETONES,URINE NEGATIVE (NEGATIVE); LEUKOCYTE ESTERASE ,URINE NEGATIVE (NEGATIVE); NITRITE,URINE NEGATIVE (NEGATIVE); PROTEIN,URINE 1+ (NEGATIVE)
[2021-02-24 20:10] LABS: BACTERIA,URINE TRACE /HPF; RBC,URINE RARE /HPF; SQUAMOUS EPITHELIAL CELL,UR 0-2 /HPF
[2021-02-24] MEDS ORDERED: RT-ALBUTEROL/IPRATROPIUM 3 ML (DUONEB) VIAL INH PRN (20:15)
[2021-02-24] MEDS: NS IV 1000 ML 1,000 ML IV SCH ×2 (20:30→23:34)
[2021-02-24] MEDS ORDERED: ONDANSETRON 4 MG/2 ML (SDV) Z0FRAN IV PRN (20:45)
[2021-02-24] MEDS ORDERED: ACETAMINOPHEN 500 MG TAB (TYLENOL) PO PRN (20:45)
[2021-02-24] MEDS ORDERED: ANTACID SUSP 30 ML UDC (MYLANTA) PO PRN (20:45)
[2021-02-24] MEDS ORDERED: EPINEPHrine 1 MG INJECTION 4 MG in NS (IVPB) 248 ML IV SCH (21:00)
[2021-02-24] MEDS ORDERED: BENZTROPINE 2 MG/2 ML INJ (COGENTIN) AMP IM PRN (21:00)
[2021-02-24] MEDS: NOREPINEPHRINE 8 MG/250 ML 250 ML IV SCH (21:10)
[2021-02-24] MEDS: VASOPRESSIN INJECTION 20 UNIT in NS (IVPB) 100 ML IV SCH (21:11)
[2021-02-24] MEDS ORDERED: NS (IVPB) 250 ML ONE (21:39)
[2021-02-24] MEDS ORDERED: VANCOMYCIN 750 MG/VIAL IV ONE (21:39)
[2021-02-24] MEDS ORDERED: VANCOMYCIN INJECTION 750 MG in NS (IVPB) 250 ML IV ONE (22:00)
[2021-02-24] MEDS: RT-ALBUTEROL/IPRATROPIUM 3 ML (DUONEB) VIAL INH SCH (22:53)
[2021-02-25] MEDS ORDERED: LORazepam INJ 2 MG/ML (ATIVAN) VIAL ONE (01:47)
[2021-02-25] MEDS: guaiFENesin/CODEINE (ROBITUSSIN AC) 10ML UDC PO PRN ×4 (01:57→17:08)
[2021-02-25] MEDS: LORazepam INJ 2 MG/ML (ATIVAN) VIAL IVP PRN ×3 (01:57→20:17)
[2021-02-25] MEDS: CEFEPIME INJECTION 1,000 MG in WATER (STERILE) FOR INJECTION 10 ML IV SCH ×3 (02:05→18:29)
[2021-02-25 02:46] LABS: AMPHETAMINE SCREEN, URINE POSITIVE (NEGATIVE); BARBITURATE SCREEN URINE POSITIVE (NEGATIVE); BENZODIAZEPINES SCREEN URINE NEGATIVE (NEGATIVE); CANNABINOID SCREEN, URINE NEGATIVE (NEGATIVE); COCAINE SCREEN URINE NEGATIVE (NEGATIVE); METHADONE STAT NEGATIVE (NEGATIVE); METHAMPHETAMINE SCREEN URINE S POSITIVE (NEGATIVE); OPIATE SCREEN URINE NEGATIVE (NEGATIVE); OXYCODONE STAT NEGATIVE (NEGATIVE); PROPOXYPHENE STAT NEGATIVE (NEGATIVE); TRICYCLIC ANTIDEPRESSANTS SCRE NEGATIVE (NEGATIVE)
[2021-02-25] MEDS: RT-ALBUTEROL/IPRATROPIUM 3 ML (DUONEB) VIAL INH SCH ×4 (02:47→18:36)
[2021-02-25 05:21] LABS: HEMATOCRIT 27 % (35-52); MONOCYTES % (AUTO) 6 % (0-12)
[2021-02-25 05:23] LABS: BASOPHILS % (AUTO) 0 % (0-10); EOSINOPHILS % (AUTO) 0 % (0-10); HEMOGLOBIN 8.6 g/dL (11.5-16.0); LYMPHOCYTES # (AUTO) 0.9 10^3/uL (1.0-4.0); LYMPHOCYTES % (AUTO) 9 % (12-44); MEAN CORPUSCULAR HEMOGLOBIN 27 pg (25-34); MEAN CORPUSCULAR HGB CONC 31 g/dL (32-36); MEAN CORPUSCULAR VOLUME 86 fL (80-99); MEAN PLATELET VOLUME 10.4 fL (9.0-12.2); MONOCYTES # (AUTO) 0.6 10^3/uL (0.0-1.0); NEUTROPHILS % (AUTO) 85 % (42-75); PLATELET COUNT 165 10^3/uL (130-400); WHITE BLOOD COUNT 10.6 10^3/uL (4.3-11.0)
[2021-02-25 05:29] LABS: ALBUMIN 2.9 GM/DL (3.2-4.5); POTASSIUM 3.9 MMOL/L (3.6-5.0)
[2021-02-25 05:30] LABS: CALCIUM 7.7 MG/DL (8.5-10.1)
[2021-02-25 05:31] LABS: TOTAL PROTEIN 7.2 GM/DL (6.4-8.2)
[2021-02-25 05:33] LABS: BILIRUBIN,TOTAL 0.4 MG/DL (0.1-1.0)
[2021-02-25 05:34] LABS: PHOSPHORUS 3.1 MG/DL (2.3-4.7)
[2021-02-25 05:35] LABS: CREATININE SERUM 1.23 MG/DL (0.60-1.30)
[2021-02-25 05:38] LABS: MAGNESIUM 1.7 MG/DL (1.6-2.4)
[2021-02-25] MEDS ORDERED: MAGNESIUM 1 GM/100 ML IVPB 100 ML IV ONE (06:20)
[2021-02-25] MEDS: VASOPRESSIN INJECTION 20 UNIT in NS (IVPB) 100 ML IV SCH ×3 (06:27→22:26)
[2021-02-25] MEDS: MAGNESIUM 1 GM/100 ML IVPB 100 ML IV SCH ×2 (06:31→08:14)
--- NOTE | 2021-02-25 07:59 | Diagnostic Imaging Report ---
INDICATION: Pneumonia. TIME OF EXAM: 3:15 AM CORRELATION is made with prior chest one day earlier. Left-sided line has tip overlying the SVC. The heart size is stable. The lungs are clear. There is no infiltrate or failure. No effusion or pneumothorax is seen. IMPRESSION: No acute abnormality is detected. Dictated by: Dictated on workstation # [id number]
[2021-02-25] MEDS ORDERED: ACETAMINOPHEN 500 MG TAB (TYLENOL) PO PRN (09:30)
[2021-02-25] MEDS ORDERED: RT-epiNEPHrine (RACEMIC) 2.25% 0.5 ML VIAL ONE (09:43)
[2021-02-25] MEDS: NS IV 1000 ML 1,000 ML IV SCH ×2 (09:57→16:19)
[2021-02-25] MEDS ORDERED: LORazepam INJ 2 MG/ML (ATIVAN) VIAL IVP PRN (10:00)
[2021-02-25] MEDS ORDERED: RT-epiNEPHrine (RACEMIC) 2.25% 0.5 ML VIAL INH ONE (10:00)
[2021-02-25] MEDS: hydrALAZINE (APRESOLINE) 25 MG TAB PO SCH ×3 (10:02→22:50)
[2021-02-25] MEDS: FAMOTIDINE 20 MG (PEPCID) TABLET PO SCH ×2 (10:02→20:16)
[2021-02-25] MEDS: PHENobarbital 64.8 MG (1 GRAIN) TAb PO SCH ×2 (10:02→20:17)
[2021-02-25] MEDS: cloNIDine 0.2 MG (CATAPRES) TAB PO SCH ×2 (10:02→20:17)
[2021-02-25] MEDS: methylPREDNISolone 125 MG (Solu-MEDROL) VIAL IVP SCH ×2 (10:06→18:29)
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
[2021-02-25] MEDS: NOREPINEPHRINE 8 MG/250 ML 250 ML IV SCH (14:05)
[2021-02-25 16:29] LABS: ABG BASE EXCESS -0.3 MMOL/L (-2.5-2.5); ABG OXYGEN SATURATION 73 % (94-100); ABG PCO2 38 MMHG (35-45); ABG PH 7.41 (7.37-7.43); ABG PO2 41 MMHG (79-93); ABG TCO2 25.2 MMOL/L (21.0-31.0); ALLENS TEST YES-POS
[2021-02-25 16:30] LABS: INSPIRED O2 60%/25L; VENTILATOR NO
[2021-02-25] MEDS: morphine INJ 10 MG/ML 1ML (SYR OR VIAL) IVP PRN (16:42)
[2021-02-25] MEDS ORDERED: VANCOMYCIN INJECTION 1,250 MG in NS (IVPB) 250 ML IV SCH (21:00)
[2021-02-26] MEDS: methylPREDNISolone 125 MG (Solu-MEDROL) VIAL IVP SCH ×3 (00:15→06:12)
[2021-02-26] MEDS: RT-ALBUTEROL/IPRATROPIUM 3 ML (DUONEB) VIAL INH SCH ×4 (01:56→18:25)
[2021-02-26 03:49] LABS: BASOPHILS % (AUTO) 0 % (0-10); EOSINOPHILS % (AUTO) 0 % (0-10); HEMATOCRIT 29 % (35-52); HEMOGLOBIN 8.9 g/dL (11.5-16.0); LYMPHOCYTES # (AUTO) 0.6 10^3/uL (1.0-4.0); LYMPHOCYTES % (AUTO) 9 % (12-44); MEAN CORPUSCULAR HEMOGLOBIN 27 pg (25-34); MEAN CORPUSCULAR HGB CONC 31 g/dL (32-36); MEAN CORPUSCULAR VOLUME 87 fL (80-99); MEAN PLATELET VOLUME 10.2 fL (9.0-12.2); MONOCYTES # (AUTO) 0.2 10^3/uL (0.0-1.0); MONOCYTES % (AUTO) 3 % (0-12); NEUTROPHILS # (AUTO) 6.2 10^3/uL (1.8-7.8); NEUTROPHILS % (AUTO) 88 % (42-75); PLATELET COUNT 419 10^3/uL (130-400); WHITE BLOOD COUNT 7.1 10^3/uL (4.3-11.0)
[2021-02-26] MEDS: LORazepam INJ 2 MG/ML (ATIVAN) VIAL IVP PRN ×7 (03:51→22:20)
[2021-02-26] MEDS: CEFEPIME INJECTION 1,000 MG in WATER (STERILE) FOR INJECTION 10 ML IV SCH ×3 (03:51→17:22)
--- NOTE | 2021-02-26 04:01 | Pulmonary Consultation ---
RHIANNON PISANO MED STUDENT 02/26/21 0401: History of Present Illness History of Present Illness Date Seen by Provider: February 26, 2021 Time Seen by Provider: 03:56 Date of Admission History of Present Illness Patient presented to the ED on 02-24 with CC of increasing SOB and tremors. She stated that the SOB increased over a period of several hours and she felt like she was "choking" from being SOB. She has an extensive PMH including oxygen dependent COPD, methamphetamine use, CVA, GA, PVD, seizure disorder, chronic renal failure, hepatitis C, non insulin dependent diabetes mellitus, pancreatitis, and respiratory failure. Admitted with a diagnosis, of pneumonia, sepsis, and acute on chronic respiratory failure. Currently she denies SOB, chest pain, fevers, chills, nausea, vomiting, blurry vision, and headaches. She denies pain. She is reporting some anxiety and tremulousness. Allergies and Home Medications Allergies Coded Allergies: nitrous oxide (Verified Allergy, Unknown, 06/08/07) Home Medications Acetaminophen 500 Mg Tablet, 1,000 MG PO Q6H PRN for PAIN-MILD, (Reported) Amlodipine Besylate 10 Mg Tablet, 5 MG PO BID, (Reported) TAKES OF A 10MG TAB TWICE DAILY Carvedilol 25 Mg Tab, 25 MG PO BID, (Reported) LAST FILLED 12-17-2019 #60 Cefdinir 300 Mg Capsule, 300 MG PO DAILY Prescribed by: QUIN JONES on 06/15/20 1204 Cephalexin 500 Mg Capsule, 500 MG PO TID Prescribed by: NEERAJ VILLA on 10/26/20 2115 Clindamycin HCl 300 Mg Capsule, 300 MG PO QID Prescribed by: ADEBAYO FATIMA on 02/11/21 0204 Clonidine HCl 0.2 Mg Tablet, 0.2 MG PO BID, (Reported) Cyclobenzaprine HCl 10 Mg Tablet, 10 MG PO TID PRN for MUSCLE SPASMS, (Reported) Ergocalciferol (Vitamin D2) 1,250 Mcg Capsule, 1,250 MCG PO WEEK, (Reported) Famotidine 20 Mg Tablet, 20 MG PO BID, (Reported) Hydralazine HCl 100 Mg Tablet, 100 MG PO TID, (Reported) Hydroxyzine HCl 25 Mg Tablet, 25 MG PO BID PRN for ANXIETY, (Reported) Levetiracetam 500 Mg Tablet, 1,000 MG PO BID LAST FILLED 12-07-2019 #120 TAKES 2 (500MG) TABS TWICE DAILY Prescribed by: MATTHEW DAVID on 02/08/20 1105 Loratadine 10 Mg Tablet, 10 MG PO DAILY, (Reported) Metoprolol Succinate 100 Mg Tab.er.24h, 100 MG PO DAILY, (Reported) Nitrofurantoin Monohyd/M-Cryst 100 Mg Capsule, 1 TAB PO BID Prescribed by: MATTHEW DAVID on 02/08/20 1109 Oxcarbazepine 300 Mg Tablet, 600 MG PO BID LAST FILLED 12-07-2019 #120 TAKES 2 (300MG)TABS TWICE DAILY Prescribed by: MTATHEW DAVID on 02/08/20 1105 Phenobarbital 64.8 Mg Tablet, 129.6 MG PO BID, (Reported) TAKES 2 (64.8MG) TABS TO EQUAL 129.6 Prazosin HCl 1 Mg Capsule, 1 MG PO HS, (Reported) Past Goiqqbi-Uvcheh-Umbceu Hx Patient Social History Alcohol Use: Denies Use Drug of Choice: + IV METH USE, THC USE Smoking Status: Current Everyday Smoker Type Used: Cigarettes 2nd Hand Smoke Exposure: No Recent Infectious Disease Expo: No Recent Hopitalizations: No Have you traveled recently?: No Substance type: Methamphetamine, Marijuana Immunizations Up To Date Tetanus Booster (TDap): Less than 5yrs PED Vaccines UTD: No Date of Pneumonia Vaccine: Jul 13, 2012 Date of Influenza Vaccine: Jul 27, 2020 Seasonal Allergies Seasonal Allergies: No Past Medical History Surgeries: Yes (SEE BELOW) Abdominal, Adenoidectomy, Cardiac, Section, Hysterectomy, Oophorectomy, Renal, Tonsillectomy Respiratory: Yes (SUPPOSED TO BE ON O2 AT 2 1/2-3L/NC AT HS & PRN;HX OF RESP FAILURE W/INTUBA) COPD Currently Using CPAP: No Currently Using BIPAP: No Cardiac: Yes Cardiomyopathy, Coronary Artery Disease, Endocarditis, Heart Attack, Hypertension, Peripheral Vascular, Valvular Heart Disease Neurological: Yes Concussion, Seizure Disorder, Stroke, Traumatic Brain Injury 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 Disorders: No Female 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 History: Hysterectomy, Menopausal Sexually Transmitted Disease: No HIV/AIDS: No Genitourinary: Yes Kidney Infection, Bladder Infection, Kidney Stones, Renal Failure, UTI-Chronic Gastrointestinal: Yes Abdominal Hernia, Gastroesophageal Reflux, Pancreatitis, Hepatitis Musculoskeletal: Yes (CHRONIC NECK AND BACK PAIN; POOR AMBULATION) Arthritis, Chronic Back Pain Endocrine: Yes (HGB AIC WAS 6.5 ON 12/23/18) Diabetes, Non-Insulin dep HEENT: Yes (POOR DENTITION) Loss of Vision: Denies Hearing Impairment: Denies Cancer: Yes Cervical Did You Recieve Any Treatments: Yes What Type of Treatment Did You: Surgical Intervention Psychosocial: Yes (POLYSUBSTANCE ABUSE) Anxiety, Bipolar, Depression Integumentary: No Blood Disorders: Yes (ANEMIA OF CHRONIC DISEASE) Adverse Reaction/Blood Tranf: No Family Medical History Abdominal aortic aneurysm 03 FATHER Alcoholism 03 FATHER 03 MOTHER 09 SISTER 09 SISTER Cancer 03 FATHER Cataract 03 FATHER 03 MOTHER Chest pain 03 MOTHER Family history: Diabetes mellitus 03 MOTHER Family history: Hypertension 03 MOTHER Family history: Thyroid disorder 03 MOTHER Headache 09 SISTER Heart disease 03 MOTHER History of drug abuse 03 FATHER 09 SISTER Myocardial infarction 03 MOTHER No Family History of: [place]'s disease Aphasia Cancer of colon Congenital heart disease Congestive heart failure Cystic fibrosis Dementia Dysphagia Family history: Allergy Family history: Alzheimer's disease Family history: Arthritis Family history: Asthma Family history: Breast disease Family history: Cardiovascular disease Family history: Coronary thrombosis Family history: Gastrointestinal disease Family history: Glaucoma Family history: Osteoporosis Hearing loss Hereditary disease History of - anemia History of - disorder History of - respiratory disease Human immunodeficiency virus (HIV) seropositivity Hypercholesterolemia Infertile Kidney disease Malignant neoplasm of lung Parkinson's disease Prostate cancer Psychotic disorder Seizure disorder Stroke Tuberculosis Visual impairment AAA, Heart Disease, Diabetes -SOCIAL HISTORY: -ETOH -OCCASIONAL USE -DRUGS-EXTENSIVE HISTORY OF IV METH USE, THC USE -SMOKES AT LEAST 1 PPD PAST SURGICAL HISTORY: -MULTIPLE CENTRAL LINES/PICC LINES -PORT LEFT CHEST PRESENT 07/29/20 -DIAGNOSTIC LAPAROSCOPY/LAPAROTOMY -MULTIPLE CYSTOSCOPIES WITH RIGHT URETERAL STENT PLACED AND LATER REMOVED -I&D OF ABSCESSES -MULTIPLE CARDIAC CATHS--NO INTERVENTION -HYSTERECTOMY WITH LATER BILATERAL SALPINGO-OOPHORECTOMY -UMBILICAL HERNIA REPAIR WITH MESH -BILATERAL MYRINGOTOMY TUBES -BLADDER SUSPENSION -MULTIPLE LEFT LEG SURGERIES DUE TO TRAUMA A CHILD -EGD -LEFT MASTOIDECTOMY NOTED ON CT 08/26/19--PT UNAWARE OF THIS PAST MEDICAL HISTORY: -HAS BEEN INTUBATED FOR RESPIRATORY FAILURE--LAST TIME WAS 08/26/19 -SUPPOSED TO BE ON O2 AT HS AT 2 1/2-3L/NC AND PRN. -NON-ISCHEMIC CARDIOMYOPATHY -HAS HAD EXTERNAL DEFIBRILLATOR IN PAST -CHRONIC CHEST PAIN COMPLAINTS, WITH ELEVATED TROPONIN MULTIPLE TIMES AND DX WITH NSTEMI 02/2018--LAST CARDIAC CATH 02/2018--SHOWED MILD CAD/NO INTERVENTION LAST LEXISCAN STRESS TEST WAS NORMAL 07/12/19. LAST ECHOCARDIOGRAM 08/20/19--NON-ISCHEMIC CARDIOMYOPATHY WITH EF 55-65% -MITRAL REGURGITATION -TRICUSPID VALVE VEGETATIONS 2013 -CHF -MULTIPLE CARDIAC CATHS-NO INTERVENTION -POOR VENOUS ACCESS -TRAUMATIC BRAIN INJURY CHILD; -CVA WITH LEFT SIDED WEAKNESS -POOR BALANCE--IS SUPPOSED TO USE A WALKER -MULTIPLE EPISODES OF "ALTERED MENTAL STATUS" -MULTIPLE HEAD INJURIES DUE TO REPORTED DOMESTIC ABUSE -CHRONIC RENAL FAILURE--NO DIALYSIS -CHRONIC ABDOMINAL PAIN COMPLAINTS; -GASTRITIS -HEPATITIS C--NO TREATMENT -CHRONIC NECK AND BACK PAIN; POOR AMBULATION -ANEMIA OF CHRONIC DISEASE -LONG HISTORY OF NON-COMPLIANCE IN ALL ASPECTS OF CARE Review of Systems Constitutional: No: Fever, Chills Eyes: No: Vision change, Eyelid inflammation ENT: No: Ear pain, Mouth swelling Respiratory: Cough, Shortness of breath; No: Hemoptysis, Pleuritic Pain Cardiovascular: No: Chest Pain, Palpitations Gastrointestinal: No: Nausea, Vomiting, Abdominal Pain Genitourinary: No Dysuria, No Frequency Musculoskeletal: No: neck pain, back pain Skin: Lesions (scattered excoriations, abrasions, and open sores on extremities) Neurological: No: Weakness, Numbness Sepsis Event Evaluation Height, Weight, BMI Height: 5'3.00" Weight: 155lbs. 8.0oz. 70.363773ht; 28.65 BMI Method:Stated Exam Exam Vital Signs Date Time Temp Pulse Resp B/P (MAP) Pulse Ox O2 Delivery O2 Flow Rate FiO2 02/26/21 01:57 96 Vapotherm 25.00 50 02/26/21 00:59 81 02/26/21 00:00 91 23 168/107 (127) 98 Vapotherm 25.00 40.00 02/25/21 23:59 89 Vapotherm 25.00 50 02/25/21 23:12 36.6 02/25/21 23:00 83 20 164/129 (141) 95 Vapotherm 25.00 40.00 5/16/21 22:00 89 32 169/112 (131) 95 Vapotherm 25.00 40.00 02/25/21 21:00 85 26 177/114 (135) 100 Vapotherm 25.00 40.00 02/25/21 20:00 90 37 132/92 (105) 89 Vapotherm 25.00 40.00 02/25/21 20:00 89 Vapotherm 25.00 50 02/25/21 19:00 85 27 171/109 (129) 100 Vapotherm 25.00 40.00 02/25/21 19:00 86 02/25/21 18:37 97 Vapotherm 25.00 40 02/25/21 18:00 90 25 171/106 (127) 100 Vapotherm 25.00 60.00 02/25/21 17:00 87 25 151/98 (115) 100 Vapotherm 25.00 60.00 02/25/21 16:12 36.0 02/25/21 16:05 89 Vapotherm 25.00 50 02/25/21 16:00 94 13 170/104 (126) 92 Vapotherm 25.00 60.00 02/25/21 15:16 99 Vapotherm 25.00 50 02/25/21 15:00 98 181/115 (137) 94 Vapotherm 25.00 60.00 02/25/21 14:03 Vapotherm 25.00 60.00 02/25/21 14:00 94 Vapotherm 5.00 60 02/25/21 14:00 97 177/106 (129) 94 Vapotherm 25.00 70.00 02/25/21 13:49 95 Vapotherm 25.00 50 02/25/21 13:00 103 181/110 (133) 96 Vapotherm 25.00 70.00 02/25/21 12:36 114 02/25/21 12:16 Vapotherm 25.00 70.00 02/25/21 12:13 94 25.00 80 02/25/21 12:10 86 Nasal Cannula 6.00 02/25/21 12:00 112 167/112 (130) 91 Nasal Cannula 5.00 02/25/21 11:00 128 101/76 (84) 100 Nasal Cannula 5.00 02/25/21 10:00 110 36 147/108 (121) 92 Nasal Cannula 5.00 02/25/21 09:56 94 OxyMask 5.00 02/25/21 09:00 95 21 182/113 (136) 100 Nasal Cannula 5.00 02/25/21 08:16 91 Nasal Cannula 2.00 02/25/21 08:03 98 Nasal Cannula 2.00 02/25/21 08:00 93 21 175/110 (131) 94 Nasal Cannula 5.00 02/25/21 07:00 90 17 171/103 (125) 94 Nasal Cannula 5.00 02/25/21 07:00 92 02/25/21 06:00 89 27 182/105 (130) 94 Nasal Cannula 5.00 02/25/21 05:00 92 26 172/98 (122) 93 Nasal Cannula 5.00 02/25/21 04:00 Nasal Cannula 3.00 02/25/21 04:00 101 26 167/114 (131) 93 Nasal Cannula 5.00 I & O 02/26/21 07:00 Intake Total 4110 ml Output Total 2100 ml Balance 2010 ml Height & Weight Height: 5'3.00" Weight: 155lbs. 8.0oz. 70.863941ae; 28.65 BMI Method:Stated General Appearance: Anxious, Chronically ill, Mild Distress HEENT: Pale Conjunctivae (L), Other (Poor dentition) Neck: Non Tender, Limited Range of Motion Respiratory: Decreased Breath Sounds, Respiratory Distress, Rhonci Cardiovascular: No Edema, Normal Peripheral Pulses, Tachycardia Capillary Refill: Less Than 3 Seconds Peripheral Pulses: 2+ Dorsalis Pedis (R), 2+ Left Dors-Pedis (L), 2+ Radial Pulses (R), 2+ Radial Pulses (L) Gastrointestinal: normal bowel sounds, distended; No guarding, No rebound; tenderness (2 raised indurated red bruises upper right and upper left quadrant abdomen that are tender to palpation and approximately 4 x 6 cm.) Extremity: No Calf Tenderness, No Pedal Edema Neurologic/Psychiatric: Alert, Oriented x3 Skin: Warm/Dry, Ecchymosis, Pallor Lymphatic: No Adenopathy Results Lab Laboratory Tests 02/24/21 16:00 02/25/21 05:15 02/26/21 03:35 Assessment/Plan Assessment/Plan Acute Exacerbation of COPD -Duoneb -Solumedrol 125 mg Q6hr -IS -Encourage cough and deep breathing Acute on chronic respiratory failure secondary to COPD -Oxygen via Vapotherm, titrate as tolerated Pneumonia with sepsis -Coverage with cefepime -NS @ 150ml/hr Chronic methamphetamine use -Monitor for withdrawal Dehydration with acute renal insufficiency resolving -Continue IVF's -Continue t9o monitor Anemia of chronic disease -Hemoglobin 8.6 -Continue to monitor Lymphopenia -Continue to monitor History of seizure disorders -Keppra and phenobarbital started -PRN ativan Noninsulin dependent diabetes mellitus -Monitor glucoses and treat PRN Hypertension -Continue clonidine -Monitor Hx of Hepatitis C -monitor LFT's Hx of Pancreatitis -Monitor Hx of CVA -Monitor CHIN BALDERRAMA DO 02/26/21 0533: Allergies and Home Medications Allergies Coded Allergies: nitrous oxide (Verified Allergy, Unknown, 06/08/07) Home Medications Acetaminophen 500 Mg Tablet, 1,000 MG PO Q6H PRN for PAIN-MILD, (Reported) Amlodipine Besylate 10 Mg Tablet, 5 MG PO BID, (Reported) TAKES OF A 10MG TAB TWICE DAILY Carvedilol 25 Mg Tab, 25 MG PO BID, (Reported) LAST FILLED 12-17-2019 #60 Cefdinir 300 Mg Capsule, 300 MG PO DAILY Prescribed by: QUIN JONES on 06/15/20 1204 Cephalexin 500 Mg Capsule, 500 MG PO TID Prescribed by: NEERAJ VILLA on 10/26/20 2115 Clindamycin HCl 300 Mg Capsule, 300 MG PO QID Prescribed by: ADEBAYO FATIMA on 02/11/21 0204 Clonidine HCl 0.2 Mg Tablet, 0.2 MG PO BID, (Reported) Cyclobenzaprine HCl 10 Mg Tablet, 10 MG PO TID PRN for MUSCLE SPASMS, (Reported) Ergocalciferol (Vitamin D2) 1,250 Mcg Capsule, 1,250 MCG PO WEEK, (Reported) Famotidine 20 Mg Tablet, 20 MG PO BID, (Reported) Hydralazine HCl 100 Mg Tablet, 100 MG PO TID, (Reported) Hydroxyzine HCl 25 Mg Tablet, 25 MG PO BID PRN for ANXIETY, (Reported) Levetiracetam 500 Mg Tablet, 1,000 MG PO BID LAST FILLED 12-07-2019 #120 TAKES 2 (500MG) TABS TWICE DAILY Prescribed by: MATTHEW DAVID on 02/08/20 1105 Loratadine 10 Mg Tablet, 10 MG PO DAILY, (Reported) Metoprolol Succinate 100 Mg Tab.er.24h, 100 MG PO DAILY, (Reported) Nitrofurantoin Monohyd/M-Cryst 100 Mg Capsule, 1 TAB PO BID Prescribed by: MATTHEW DAVID on 02/08/20 1109 Oxcarbazepine 300 Mg Tablet, 600 MG PO BID LAST FILLED 12-07-2019 #120 TAKES 2 (300MG)TABS TWICE DAILY Prescribed by: MATTHEW DAVID on 02/08/20 1105 Phenobarbital 64.8 Mg Tablet, 129.6 MG PO BID, (Reported) TAKES 2 (64.8MG) TABS TO EQUAL 129.6 Prazosin HCl 1 Mg Capsule, 1 MG PO HS, (Reported) Past Vgpljgb-Igcgmr-Rvwoyx Hx Family Medical History Abdominal aortic aneurysm 03 FATHER Alcoholism 03 FATHER 03 MOTHER 09 SISTER 09 SISTER Cancer 03 FATHER Cataract 03 FATHER 03 MOTHER Chest pain 03 MOTHER Family history: Diabetes mellitus 03 MOTHER Family history: Hypertension 03 MOTHER Family history: Thyroid disorder 03 MOTHER Headache 09 SISTER Heart disease 03 MOTHER History of drug abuse 03 FATHER 09 SISTER Myocardial infarction 03 MOTHER No Family History of: [place]'s disease Aphasia Cancer of colon Congenital heart disease Congestive heart failure Cystic fibrosis Dementia Dysphagia Family history: Allergy Family history: Alzheimer's disease Family history: Arthritis Family history: Asthma Family history: Breast disease Family history: Cardiovascular disease Family history: Coronary thrombosis Family history: Gastrointestinal disease Family history: Glaucoma Family history: Osteoporosis Hearing loss Hereditary disease History of - anemia History of - disorder History of - respiratory disease Human immunodeficiency virus (HIV) seropositivity Hypercholesterolemia Infertile Kidney disease Malignant neoplasm of lung Parkinson's disease Prostate cancer Psychotic disorder Seizure disorder Stroke Tuberculosis Visual impairment Review of Systems Time Seen by Provider: 05:35 Assessment/Plan Assessment/Plan Acute Exacerbation of COPD -Duoneb -Solumedrol 125 mg Q6hr -decrease to 40 Q12 -IS -Encourage cough and deep breathing Acute on chronic respiratory failure secondary to COPD -Oxygen via Vapotherm, titrate as tolerated Pneumonia with sepsis -Coverage with cefepime -NS @ 150ml/hr Chronic methamphetamine use -Monitor for withdrawal Dehydration with acute renal insufficiency resolving -Continue IVF's -Continue t9o monitor Anemia of chronic disease -Hemoglobin 8.6 -Continue to monitor Lymphopenia -Continue to monitor History of seizure disorders -Keppra and phenobarbital started -PRN ativan Noninsulin dependent diabetes mellitus -Monitor glucoses and treat PRN Hypertension -Continue clonidine -Monitor Hx of Hepatitis C -monitor LFT's Hx of Pancreatitis -Monitor Hx of CVA -Monitor Supervisory-Addendum Brief Verification & Attestation Participated in pt care: history, MDM, physical Personally performed: exam, history, MDM, supervision of care Care discussed with: Medical Student Procedures: n/a Results interpretation: Verified all documentation Verification and Attestation of Medical Student E/M Service A medical student performed and documented this service in my presence. I reviewed and verified all information documented by the medical student and made modifications to such information, when appropriate. I personally performed the physical exam and medical decision making. Chin Balderrama, February 26, 2021,05:35 RHIANNON PISANO MED STUDENT February 26, 2021 04:01 CHIN BALDERRAMA DO February 26, 2021 05:33
[2021-02-26 04:03] LABS: POTASSIUM 4.7 MMOL/L (3.6-5.0)
[2021-02-26 04:08] LABS: PHOSPHORUS 3.9 MG/DL (2.3-4.7)
[2021-02-26 04:09] LABS: CREATININE SERUM 1.61 MG/DL (0.60-1.30)
[2021-02-26 04:11] LABS: MAGNESIUM 2.2 MG/DL (1.6-2.4)
[2021-02-26] MEDS: NS IV 1000 ML 1,000 ML IV SCH ×7 (06:10→22:49)
[2021-02-26] MEDS: hydrALAZINE (APRESOLINE) 25 MG TAB PO SCH ×3 (06:11→22:20)
--- NOTE | 2021-02-26 07:33 | Diagnostic Imaging Report ---
INDICATION: Hypoxia COMPARISON: 02/25/2021 FINDINGS: Single view chest demonstrates continued cardiac enlargement with mild central vascular congestion. There is no pneumothorax. Subclavian catheter on the left is stable. No large effusion identified. IMPRESSION: Unchanged aeration of the lungs. Dictated by: Dictated on workstation # [id number]
[2021-02-26] MEDS: FAMOTIDINE 20 MG (PEPCID) TABLET PO SCH ×2 (07:57→09:17)
[2021-02-26] MEDS: cloNIDine 0.2 MG (CATAPRES) TAB PO SCH ×2 (07:57→20:31)
[2021-02-26] MEDS: PHENobarbital 64.8 MG (1 GRAIN) TAb PO SCH ×2 (07:57→20:31)
[2021-02-26] MEDS: methylPREDNISolone 40 MG/ML (Solu-MEDROL) VIAL IVP SCH ×2 (09:23→20:31)
[2021-02-26] MEDS ORDERED: LEVE500T6 PO (10:36)
[2021-02-26] MEDS ORDERED: DIVA250T2 PO (10:36)
--- NOTE | 2021-02-26 10:41 | Progress Note - Hospitalist ---
Subjective HPI/CC On Admission Date Seen by Provider: February 26, 2021 Time Seen by Provider: 10:45 This is a 60-year-old white female with a history of chronic methamphetamine use who presented to the emergency room with increased shortness of breath. I was in her room this morning she began having coughing and stridor and acute shortness of breath. Oxygen saturations were in the 70s to 80s with stridorous respirations. Racemic epinephrine was administered by RT with breathing treatment and Ativan was given for her anxiety with improvement in her oxygenation and respiratory status. Does request a DNR Subjective/Events-last exam Pt doing pretty well but did have a seizure prior to moving down to the fourth floor so will hold in the ICU for now Ativan will be given Was on Vapotherm, now weaned down Meth use noted on the drug screen Pt is very debilitated Review of Systems General: Fatigue Neurological: Seizures Focused Exam Lactate Level 02/24/21 18:01: Lactic Acid Level 0.70 Time of Focused Exam: 18:14 Objective Exam Vital Signs Vital Signs Date Time Temp Pulse Resp B/P (MAP) Pulse Ox O2 Delivery O2 Flow Rate FiO2 02/27/21 04:00 92 Vapotherm 25.00 40 02/27/21 02:00 90 27 155/94 (114) 02/26/21 17:29 36.4 Capillary Refill : Less Than 3 Seconds General Appearance: Anxious, Chronically ill, Other (post ictal) Respiratory: Lungs Clear, Normal Breath Sounds Cardiovascular: Regular Rate, Rhythm Results/Procedures Lab Patient resulted labs reviewed. Assessment/Plan Assessment and Plan Assess & Plan/Chief Complaint Assessment: Seizure d/o Meth use Debility CAD HTN Plan: Seizure management HTN management Critical Care Critically Ill Patient RAJAN VALDOVINOS DO February 26, 2021 10:41
[2021-02-26 14:15] LABS: HEPATITIS C ANTIBODY C Reactive (Non-Reactive)
[2021-02-26] MEDS: cloNIDine 0.1 MG (CATAPRES) TAB PO PRN ×2 (15:19→23:53)
--- NOTE | 2021-02-26 16:03 | Diagnostic Imaging Report ---
INDICATION: Central line placement Portable chest 3:41 PM Left subclavian Port-A-Cath tip projects over the SVC. Heart size and pulmonary vascularity are normal. There is some questionable infiltrate or atelectasis at the right lateral lung base. There are no effusions or pneumothoraces. IMPRESSION: Questionable right basilar infiltrate. Dictated by: Dictated on workstation # [id number]
[2021-02-26] MEDS: morphine INJ 10 MG/ML 1ML (SYR OR VIAL) IVP PRN ×3 (17:22→22:49)
--- NOTE | 2021-02-26 19:10 | CONSULTATION REPORT ---
DATE OF SERVICE: 02/26/2021 ADMITTING PHYSICIAN: Radha Combs MD ATTENDING FIELD SERVICE POULTRY TECHNICIAN: [facility]. HISTORY OF PRESENT ILLNESS: The patient is a 60-year-old female who presented to the Emergency Department with shortness of breath. She states that she began to have coughing as well as stridor and this did cause acute shortness of breath. Her oxygen saturations were in the 70s and 80s. She was given racemic epinephrine and also treated with Ativan for her anxiety and her oxygenation and respiratory status did improve. She has had multiple admissions and does have an extensive past medical history. We had seen her in 2019 and at that time was admitted for acute renal failure as well as altered mental status change. She was admitted to the ICU and was acidotic and hyperkalemic. She also does have a longstanding history of illicit drugs including IV methamphetamine and has very poor peripheral circulation and on that admission, she underwent placement of a left subclavian Groshong implantable catheter. On this admission, the port was accessed and fluids infused, however, this did cause edema as well as pain just distal to the port, likely consistent with a leak within the band tubing with a connection as well as infiltration. The port will need to be removed and replaced. PAST MEDICAL HISTORY: Major seizure disorder, cardiomyopathy, coronary artery disease, history of endocarditis, history of myocardial infarction, hypertension, peripheral vascular disease, COPD, valvular heart disease, history of stroke, traumatic brain injury, chronic urinary tract infection, history of nephrolithiasis, gastroesophageal reflux disease, history of pancreatitis, hepatitis C, diabetes, anxiety, depression, bipolar disorder. PAST SURGICAL HISTORY: Tonsillectomy, adenoidectomy, total hysterectomy, section. ALLERGIES: NITROUS OXIDE. MEDICATIONS: Amlodipine, carvedilol, cefdinir, cephalexin, clindamycin, clonidine, cyclobenzaprine, vitamin D2, famotidine, hydralazine, hydroxyzine, levetiracetam, loratadine, metoprolol, nitrofurantoin, oxcarbazepine, phenobarbital, prazosin. SOCIAL HISTORY: IV methamphetamine use, THC, cigarette smoke, negative alcohol. PAST FAMILY HISTORY: Mother, myocardial infarction. Father, some form of cancer. VITAL SIGNS: Temperature 36.8, blood pressure 174/113, pulse 87, respirations 42, pulse ox 95% on 40% humidified high flow oxygen. REVIEW OF SYSTEMS: This is a well-nourished female, currently guarded secondary to her respiratory status as well as all of her other chronic issues. She is on a BiPAP and currently does not report any shortness of breath or difficulty breathing. She does have a nonproductive cough. No chest pain, palpitations, diaphoresis. No nausea, vomiting, no diarrhea, constipation, no red blood per rectum, no dark tarry stools. No fever, chills, no recent inadvertent weight loss. All other review of systems negative. PHYSICAL EXAMINATION: CHEST: Distant breath sounds with scattered wheezes and rhonchi bilaterally. HEART: Regular, no murmurs. EXTREMITIES: +1/3 bilateral lower extremity edema, negative Homans sign. HEENT: No scleral icterus. NECK: No cervical lymphadenopathy. ABDOMEN: Soft, nontender, nondistended. SKIN: Warm, dry. LABORATORY DATA: WBC 7.1, hemoglobin 8.9, hematocrit 89, platelets 419, BUN 9, creatinine 0.22. ASSESSMENT AND PLAN: A 60-year-old female with respiratory failure, methamphetamine use as well as a severely poor peripheral venous circulation with nonfunctional a Groshong implantable catheter. We will proceed with removal and replacement of a Groshong catheter for long-term IV access on this admission. Job ID: [id number] DocumentID: [id number] Dictated Date: 02/26/2021 18:35:47 Longshore Equipment Operator Date: 02/26/2021 19:09:29 Dictated By: CLAIRE ROWELL MD
[2021-02-26] MEDS: DIVALPROEX 250 MG DELAYED RELEASE (DEPAKOTE) TAB PO SCH (20:31)
[2021-02-27] MEDS: morphine INJ 10 MG/ML 1ML (SYR OR VIAL) IVP PRN ×7 (00:07→20:29)
[2021-02-27] MEDS ORDERED: hydrALAZINE (APESOLINE) 20 MG/ML VIAL ONE (01:04)
[2021-02-27] MEDS ORDERED: hydrALAZINE (APESOLINE) 20 MG/ML VIAL IV ONE (01:15)
[2021-02-27] MEDS: RT-ALBUTEROL/IPRATROPIUM 3 ML (DUONEB) VIAL INH SCH ×5 (02:37→22:15)
[2021-02-27] MEDS: CEFEPIME INJECTION 1,000 MG in WATER (STERILE) FOR INJECTION 10 ML IV SCH ×3 (02:45→18:19)
[2021-02-27] MEDS: LORazepam INJ 2 MG/ML (ATIVAN) VIAL IVP PRN ×4 (02:57→21:49)
--- NOTE | 2021-02-27 04:21 | Pulmonary Progress Note ---
RHIANNON PISANO MED STUDENT 02/27/21 0421: Subjective Date Seen by a Provider: February 27, 2021 Time Seen by a Provider: 04:18 Subjective/Events-last exam Patient resting comfortably upon assessment. Moans/groans when asked questions. Vitals stable per monitor. Sepsis Event Evaluation Height, Weight, BMI Height: 5'3.00" Weight: 155lbs. 8.0oz. 70.547143lk; 28.65 BMI Method:Stated Focused Exam Lactate Level 02/24/21 18:01: Lactic Acid Level 0.70 Time of Focused Exam: 18:14 Exam Exam Vital Signs Date Time Temp Pulse Resp B/P (MAP) Pulse Ox O2 Delivery O2 Flow Rate FiO2 02/27/21 02:37 95 Vapotherm 20.00 40 02/27/21 02:00 90 27 155/94 (114) 94 Vapotherm 25.00 40.00 02/27/21 01:00 82 02/27/21 01:00 82 16 181/108 (132) 93 Vapotherm 25.00 40.00 02/27/21 00:00 93 22 175/111 (132) 94 Vapotherm 25.00 40.00 02/26/21 23:59 93 Vapotherm 25.00 40 02/26/21 23:00 93 26 100 Vapotherm 25.00 40.00 02/26/21 22:00 86 19 170/124 (139) 97 Vapotherm 25.00 40.00 02/26/21 21:00 90 27 183/121 (141) 95 Vapotherm 25.00 40.00 02/26/21 20:00 86 18 183/123 (143) 93 Vapotherm 25.00 40.00 02/26/21 20:00 93 Vapotherm 25.00 40 02/26/21 19:00 84 24 185/119 (141) 93 Vapotherm 25.00 40.00 02/26/21 19:00 85 02/26/21 18:25 95 Vapotherm 25.00 40 02/26/21 18:00 87 42 174/113 (133) 94 Vapotherm 25.00 25.00 02/26/21 17:29 36.4 02/26/21 17:00 87 24 169/101 (123) 98 Vapotherm 25.00 25.00 02/26/21 16:30 93 Vapotherm 25.00 50 02/26/21 16:00 87 23 175/110 (131) 98 Vapotherm 25.00 25.00 02/26/21 15:00 96 11 179/105 (129) 96 Vapotherm 25.00 25.00 02/26/21 14:49 96 Vapotherm 25.00 40 02/26/21 14:00 90 29 179/107 (131) 96 Vapotherm 25.00 25.00 02/26/21 13:00 96 68 160/118 (132) 95 Vapotherm 25.00 25.00 02/26/21 12:44 102 02/26/21 12:30 93 Vapotherm 25.00 50 02/26/21 12:00 36.4 02/26/21 12:00 93 16 178/108 (131) 94 Vapotherm 25.00 25.00 02/26/21 11:00 93 28 173/100 (124) 91 Vapotherm 25.00 25.00 02/26/21 10:00 96 28 171/106 (127) 94 Vapotherm 25.00 25.00 02/26/21 09:31 96 Vapotherm 25.00 40 02/26/21 09:16 36.6 Vapotherm 02/26/21 09:00 93 32 89 Vapotherm 25.00 25.00 02/26/21 08:00 88 23 185/106 (132) 89 Vapotherm 25.00 25.00 02/26/21 07:45 93 Vapotherm 25.00 50 02/26/21 07:00 90 23 183/121 (141) 90 Vapotherm 25.00 25.00 02/26/21 06:58 92 02/26/21 06:00 93 24 161/104 (123) 90 Vapotherm 25.00 25.00 02/26/21 05:00 92 25 137/127 (130) 91 Vapotherm 25.00 25.00 I & O 02/27/21 07:00 Intake Total 650 ml Output Total 2125 ml Balance -1475 ml Height & Weight Height: 5'3.00" Weight: 155lbs. 8.0oz. 70.086806qc; 28.65 BMI Method:Stated General Appearance: Anxious, Chronically ill HEENT: Moist Mucous Membranes, Pale Conjunctivae (L), Other (Poor dentition) Neck: Non Tender, Limited Range of Motion Respiratory: Chest Non Tender, No Respiratory Distress, Decreased Breath Sounds, Rhonci Cardiovascular: No Edema, Normal Peripheral Pulses, Tachycardia Capillary Refill: Less Than 3 Seconds Peripheral Pulses: 2+ Dorsalis Pedis (R), 2+ Left Dors-Pedis (L), 2+ Radial Pulses (R), 2+ Radial Pulses (L) Gastrointestinal: normal bowel sounds, distended; No guarding, No rebound; tenderness (2 bruises to right upper and left upper abdomen, mildly tender to palpation) Extremity: Normal Capillary Refill, Non Tender, No Pedal Edema Neurologic/Psychiatric: Alert Skin: Warm/Dry, Ecchymosis, Pallor, Other (multiple scattered abrasions, open sores, and bruising on extremities) Lymphatic: No Adenopathy Results Lab Laboratory Tests 02/25/21 05:15 02/26/21 03:35 Assessment/Plan Assessment/Plan Acute Exacerbation of COPD -Duoneb q6hrs -solumedrol 40mg Q12 -IS -Encourage cough and deep breathing Acute on chronic respiratory failure secondary to COPD -Oxygen via Vapotherm, titrate as tolerated Pneumonia with sepsis -Coverage with cefepime -NS @ 75ml/hr Hyponatremia -Monitor -NS Chronic methamphetamine use -Monitor for withdrawal Dehydration with acute renal insufficiency resolving -Continue IVF's -Continue to monitor Anemia of chronic disease- stable -Hemoglobin 8.9 -Continue to monitor Lymphopenia -Continue to monitor History of seizure disorders -Keppra and phenobarbital started -PRN ativan Noninsulin dependent diabetes mellitus -Monitor glucoses and treat PRN Hypertension -Continue clonidine -Monitor Hx of Hepatitis C -monitor LFT's Hx of Pancreatitis -Monitor Hx of CVA -Monitor RICARDA BALDERRAMA DO 02/27/21 0559: Assessment/Plan Assessment/Plan Acute Exacerbation of COPD -Duoneb q6hrs -solumedrol 40mg Q12 -IS -Encourage cough and deep breathing Acute on chronic respiratory failure secondary to COPD -Oxygen via Vapotherm, titrate as tolerated Pneumonia with sepsis -Coverage with cefepime -NS @ 75ml/hr--- Change to LR at 125. Hyponatremia -Monitor -NS Chronic methamphetamine use -Monitor for withdrawal Dehydration with acute renal insufficiency resolving -Continue IVF's -Continue to monitor Anemia of chronic disease- stable -Hemoglobin 8.9 -Continue to monitor Lymphopenia -Continue to monitor History of seizure disorders -Keppra and phenobarbital started -PRN ativan Noninsulin dependent diabetes mellitus -Monitor glucoses and treat PRN Hypertension -Continue clonidine -Monitor Hx of Hepatitis C -monitor LFT's Hx of Pancreatitis -Monitor Hx of CVA -Monitor Supervisory-Addendum Brief Verification & Attestation Participated in pt care: history, MDM, physical Personally performed: exam, history, MDM, supervision of care Care discussed with: Medical Student Procedures: n/a Results interpretation: Verified all documentation Verification and Attestation of Medical Student E/M Service A medical student performed and documented this service in my presence. I reviewed and verified all information documented by the medical student and made modifications to such information, when appropriate. I personally performed the physical exam and medical decision making. Ricarda Balderrama, February 27, 2021,09:17 RHIANNON PISANO MED STUDENT February 27, 2021 04:21 RICARDA BALDERRAMA DO February 27, 2021 05:59
[2021-02-27] MEDS: hydrALAZINE (APRESOLINE) 25 MG TAB PO SCH ×5 (05:36→21:34)
[2021-02-27 06:10] LABS: BASOPHILS % (AUTO) 0 % (0-10); EOSINOPHILS % (AUTO) 0 % (0-10); HEMATOCRIT 29 % (35-52); HEMOGLOBIN 8.9 g/dL (11.5-16.0); LYMPHOCYTES # (AUTO) 1.1 10^3/uL (1.0-4.0); LYMPHOCYTES % (AUTO) 10 % (12-44); MEAN CORPUSCULAR HEMOGLOBIN 27 pg (25-34); MEAN CORPUSCULAR HGB CONC 31 g/dL (32-36); MEAN CORPUSCULAR VOLUME 88 fL (80-99); MEAN PLATELET VOLUME 10.4 fL (9.0-12.2); MONOCYTES # (AUTO) 0.3 10^3/uL (0.0-1.0); MONOCYTES % (AUTO) 3 % (0-12); NEUTROPHILS % (AUTO) 86 % (42-75); PLATELET COUNT 415 10^3/uL (130-400); WHITE BLOOD COUNT 10.5 10^3/uL (4.3-11.0)
[2021-02-27 06:24] LABS: POTASSIUM 5.1 MMOL/L (3.6-5.0)
[2021-02-27 06:25] LABS: CALCIUM 8.3 MG/DL (8.5-10.1)
[2021-02-27 06:30] LABS: CREATININE SERUM 1.2 MG/DL (0.60-1.30); PHOSPHORUS 3.6 MG/DL (2.3-4.7)
[2021-02-27 06:32] LABS: MAGNESIUM 2.2 MG/DL (1.6-2.4)
[2021-02-27] MEDS: LACTATED RINGERS 1,000 ML IV SCH ×3 (06:43→23:04)
--- NOTE | 2021-02-27 07:07 | Progress Note - Hospitalist ---
Subjective HPI/CC On Admission Date Seen by Provider: February 27, 2021 Time Seen by Provider: 09:30 This is a 60-year-old white female with a history of chronic methamphetamine use who presented to the emergency room with increased shortness of breath. I was in her room this morning she began having coughing and stridor and acute shor tness of breath. Oxygen saturations were in the 70s to 80s with stridorous respirations. Racemic epinephrine was administered by RT with breathing treatment and Ativan was given for her anxiety with improvement in her oxygenation and respiratory status. Does request a DNR Subjective/Events-last exam Pt doing okay Pseudoseizures noted Reached out to [place] Very complex issues, she is so complicated in meth use complicates even more Checked meds and labs BP stable Port placed today Can't eat of drink due to NPO status and/or seizures Review of Systems General: Fatigue, Malaise Focused Exam Lactate Level Time of Focused Exam: 18:14 Objective Exam Vital Signs Vital Signs Date Time Temp Pulse Resp B/P (MAP) Pulse Ox O2 Delivery O2 Flow Rate FiO2 02/28/21 05:09 Vapotherm 15.00 30.00 02/28/21 03:09 36.3 02/28/21 03:08 95 35 02/28/21 00:00 75 25 148/91 (110) Capillary Refill : Less Than 3 Seconds General Appearance: Anxious, Chronically ill, Other (gyrating around in bed pseudoseizures) Respiratory: Lungs Clear, Normal Breath Sounds Cardiovascular: Regular Rate, Rhythm Results/Procedures Lab Laboratory Tests 02/27/21 05:29 02/28/21 00:52 Patient resulted labs reviewed. Assessment/Plan Assessment and Plan Assess & Plan/Chief Complaint Assessment: Seizure d/o Meth use Debility CAD HTN Plan: Seizure management HTN management 02/27/21: Port placement [place]? Critical Care Critically Ill Patient ARUNARAJAN LANGE February 27, 2021 07:07
--- NOTE | 2021-02-27 08:08 | Diagnostic Imaging Report ---
INDICATION: Pneumonia, respiratory failure. TECHNIQUE: Single view chest 2:40 AM. CORRELATION STUDY: 02/26/2021 FINDINGS: Left subclavian Fttdsc-s-Yqlo catheter tip over the SVC. Heart size is borderline enlarged. Vasculature is a slightly increased including prominence of central pulmonary arteries. Scattered pulmonary parenchymal densities are present most pronounced left lung base. IMPRESSION: 1. Heart size stable with vasculature slightly prominent. 2. Bilateral pulmonary opacities particularly left lung base does raise concern for small patchy area of pneumonitis. Follow-up imaging would be recommended. Dictated by: Dictated on workstation # [id number]
[2021-02-27] MEDS: cloNIDine 0.2 MG (CATAPRES) TAB PO SCH ×2 (08:54→19:46)
[2021-02-27] MEDS: PHENobarbital 64.8 MG (1 GRAIN) TAb PO SCH ×2 (08:54→19:46)
[2021-02-27] MEDS: FAMOTIDINE 20 MG (PEPCID) TABLET PO SCH (08:54)
[2021-02-27] MEDS: DIVALPROEX 250 MG DELAYED RELEASE (DEPAKOTE) TAB PO SCH ×5 (08:54→19:49)
[2021-02-27] MEDS: methylPREDNISolone 40 MG/ML (Solu-MEDROL) VIAL IVP SCH ×2 (08:54→19:49)
[2021-02-27] MEDS ORDERED: HEParin (CENTRAL IV FLUSH) 500 UNIT/5 ML SYR ONE (11:33)
[2021-02-27] MEDS ORDERED: 0.9% SODIUM CHLORIDE PF INJ 20 ML VIAL ONE (11:33)
[2021-02-27] MEDS ORDERED: LIDOCAINE/EPI 1%-1:100,000 (XYLOCAINE) 20ML ONE (11:33)
[2021-02-27] MEDS ORDERED: PROPOFOL INJECTION 50 ML IV ONE (11:38)
[2021-02-27] MEDS ORDERED: ONDANSETRON 4 MG/2 ML (SDV) Z0FRAN ONE (11:38)
[2021-02-27] MEDS ORDERED: MIDAZOLAM 2 MG/2 ML (VERSED) VIAL ONE (11:39)
--- NOTE | 2021-02-27 11:45 | Progress Note-Pre Operative ---
Pre-Operative Progress Note H&P Reviewed The H&P was reviewed, patient examined and no changes noted. Date Seen by Provider: February 27, 2021 Time Seen by Provider: 11:00 Date H&P Reviewed: February 27, 2021 Time H&P Reviewed: 11:00 Pre-Operative Diagnosis: non-functional groshong with respiratoy failure CLAIRE ROWELL MD February 27, 2021 11:45
[2021-02-27] MEDS ORDERED: KETAMINE/NaCl 50 MG/5 ML SYRINGE (ED ONLY) ONE (12:14)
[2021-02-27 13:20] VITALS: BP 148/88
[2021-02-27 13:21] VITALS: BP 148/88
--- NOTE | 2021-02-27 13:21 | Progress Note-Post Operative ---
Post-Operative Progess Note Surgeon (s)/Chemist Proteins (s) Surgeon CLAIRE ROWELL MD Chemist Proteins: none Pre-Operative Diagnosis non-functional groshong with respiratoy failure Post-Operative Diagnosis same Procedure & Operative Findings Date of Procedure 02/27/21 Procedure Performed/Findings removal and replacement left subclavian groshong implantantable cath under flouroscopy. Anesthesia Type mac with local Estimated Blood Loss Estimated blood loss (mL): minimal Specimens/Packing Specimens Removed old CLAIRE Villarreal MD February 27, 2021 13:21
--- NOTE | 2021-02-27 13:29 | Anesthesia-General Post-Op ---
MAC Patient Condition Mental Status/LOC: Same as Preop Cardiovascular: Satisfactory Nausea/Vomiting: Absent Respiratory: Satisfactory Pain: Controlled Complications: Absent Post Op Complications Complications None Follow Up Care/Instructions Patient Instructions None needed. Anesthesiology Discharge Order Discharge Order Patient is doing well, no complaints, stable vital signs, no apparent adverse anesthesia problems. No complications reported per nursing. CARLOS ALTAMIRANO CRNA February 27, 2021 13:29
[2021-02-27 13:30] VITALS: BP 148/97
[2021-02-27] MEDS ORDERED: morphine INJ 10 MG/ML 1ML (SYR OR VIAL) IVP ONE (13:30)
[2021-02-27] MEDS ORDERED: ONDANSETRON 4 MG/2 ML (SDV) Z0FRAN IVP PRN (13:30)
[2021-02-27 13:40] VITALS: BP 143/97
[2021-02-27 13:50] VITALS: BP 149/92
--- NOTE | 2021-02-27 14:06 | Diagnostic Imaging Report ---
INDICATION: Central line placement. IMPRESSION: 5.7 seconds of fluoroscopy and a single AP digital image were used in Surgery by Dr. Kwan during central line placement. The image shows the catheter tip projecting over the SVC. Dictated by: Dictated on workstation # [id number]
--- NOTE | 2021-02-27 14:11 | Diagnostic Imaging Report ---
INDICATION: Groshong placement. FINDINGS: The left subclavian catheter tip is in the lower SVC in good alignment. There is no pneumothorax. There are some perihilar and basilar zones of partial atelectasis. Mild interstitial edema could not be excluded but we acknowledge limited inspiratory volume. IMPRESSION: Central line placed. No pneumothorax. Likely zones of expiratory partial atelectasis. Dictated by: Dictated on workstation # [id number]
[2021-02-27 15:40] VITALS: BP 146/97
--- NOTE | 2021-02-27 18:17 | OPERATIVE REPORT ---
DATE OF SERVICE: 02/27/2021 ADMITTING PHYSICIAN: Radha Combs MD. ATTENDING BLENDER HELPER: [facility]. PREOPERATIVE DIAGNOSES: Nonfunctional left subclavian Groshong implantable catheter with respiratory failure and poor peripheral venous circulation. POSTOPERATIVE DIAGNOSES: Nonfunctional left subclavian Groshong implantable catheter with respiratory failure and poor peripheral venous circulation. PROCEDURE PERFORMED: Removal and replacement of left subclavian Groshong implantable catheter under fluoroscopy. SURGEON: Claire Rowell MD. ANESTHESIA: Monitored anesthesia care with local. ESTIMATED BLOOD LOSS: Minimal. DISPOSITION: The patient tolerated the procedure well. INDICATION FOR PROCEDURE: The patient is a 60-year-old female, who presented to the Emergency Department with shortness of breath. She also began coughing as well as developing a stridor, which did cause acute shortness of breath. Her oxygen saturations were in the 70 and 80 percent. She was given racemic epinephrine and also treated with Ativan for anxiety and her oxygenation and respiratory status did improve. She has had multiple medications and does have an extensive past medical history. We had seen her in 2019 and at that time, she was admitted for acute renal failure and altered mental status change. She was admitted to the ICU and was found to be acidotic and hyperkalemic. She has a longstanding history of illicit IV drug abuse including methamphetamine and severe noncompliance as well. She underwent placement of left subclavian Groshong implantable catheter. On this admission, the port was accessed; however, she had infiltration of fluid around the port consistent with a leak within the band tubing or with the connection. DESCRIPTION OF PROCEDURE: The patient was brought to the operating room and laid supine on the table. After adequate IV pain and sedative medications and monitored anesthesia care, the chest and neck were prepped and draped in a standard surgical fashion. A 0.5% Marcaine with epinephrine was used to anesthetize the overlying skin in the left chest. A skin incision was then made using a 15 blade along the previous incision site. Subcutaneous tissue was then dissected using electrocautery. The capsule around the port was identified and opened using cautery. The port was then removed from the reservoir and the entire catheter pulled out while holding pressure with visualization of good hemostasis. The left subclavian vein was then cannulated with drawing of venous blood. The guidewire was inserted under fluoroscopy. The cannulating needle was removed and the dilator and sheath were then introduced over the guidewire. The guidewire and dilator were then removed and the Groshong implantable catheter was placed under fluoroscopy until the tip of the catheter was at the superior vena caval - right atrial junction. The sheath was then removed. The catheter cut down to size and port placed onto the catheter. The port was then placed into the subcutaneous reservoir. This was then sutured to the anterior pectoralis fascia using interrupted 3-0 Vicryl sutures. The subcutaneous tissue was then reapproximated using 3-0 Vicryl interrupted sutures and the skin was closed using 4-0 Monocryl running subcuticular suture. Wound was then cleaned and covered with Dermabond. The port was also accessed with drawing of venous blood and saline pushed in without any resistance. The patient tolerated the procedure well. We will get a post procedure chest x-ray once confirmation of placement of the port may be used at any time. Job ID: [id number] DocumentID: [id number] Dictated Date: 02/27/2021 13:27:17 Glaze Carrier Date: 02/27/2021 18:16:35 Dictated By: CLAIRE ROWELL MD
[2021-02-27] MEDS: amLODIPine 10 MG (NORVASC) TAB PO SCH (20:31)
[2021-02-28 00:58] LABS: BASOPHILS % (AUTO) 0 % (0-10); EOSINOPHILS % (AUTO) 0 % (0-10); HEMATOCRIT 28 % (35-52); HEMOGLOBIN 8.6 g/dL (11.5-16.0); LYMPHOCYTES # (AUTO) 0.6 10^3/uL (1.0-4.0); LYMPHOCYTES % (AUTO) 8 % (12-44); MEAN CORPUSCULAR HEMOGLOBIN 28 pg (25-34); MEAN CORPUSCULAR HGB CONC 30 g/dL (32-36); MEAN CORPUSCULAR VOLUME 91 fL (80-99); MEAN PLATELET VOLUME 9.9 fL (9.0-12.2); MONOCYTES # (AUTO) 0.2 10^3/uL (0.0-1.0); MONOCYTES % (AUTO) 2 % (0-12); NEUTROPHILS # (AUTO) 7.5 10^3/uL (1.8-7.8); NEUTROPHILS % (AUTO) 90 % (42-75); PLATELET COUNT 421 10^3/uL (130-400); WHITE BLOOD COUNT 8.3 10^3/uL (4.3-11.0)
[2021-02-28] MEDS: CEFEPIME INJECTION 1,000 MG in WATER (STERILE) FOR INJECTION 10 ML IV SCH ×3 (01:05→17:53)
[2021-02-28 01:08] LABS: POTASSIUM 6.1 MMOL/L (3.6-5.0)
[2021-02-28 01:09] LABS: CALCIUM 8.5 MG/DL (8.5-10.1)
[2021-02-28 01:14] LABS: CREATININE SERUM 1.15 MG/DL (0.60-1.30); PHOSPHORUS 4.4 MG/DL (2.3-4.7)
[2021-02-28] MEDS: RT-ALBUTEROL/IPRATROPIUM 3 ML (DUONEB) VIAL INH SCH ×6 (02:53→22:23)
--- NOTE | 2021-02-28 03:57 | Pulmonary Progress Note ---
RHIANNON PISANO MED STUDENT 02/28/21 0357: Subjective Date Seen by a Provider: February 28, 2021 Time Seen by a Provider: 03:54 Subjective/Events-last exam Patient asleep upon entering room. Vitals stable per monitor. Maintained on vapotherm currently. Review of Systems General: No Chills, No Malaise HEENT: No Head Aches, No Visual Changes Pulmonary: No Cough, No Pleuritic Chest Pain Cardiovascular: No: Chest Pain, Palpitations Gastrointestinal: No: Nausea, Vomiting Genitourinary: No Dysuria, No Frequency Musculoskeletal: No: neck pain, back pain Neurological: No: Weakness, Numbness Sepsis Event Evaluation Height, Weight, BMI Height: 5'3.00" Weight: 155lbs. 8.0oz. 70.351148za; 28.65 BMI Method:Stated Focused Exam Time of Focused Exam: 18:14 Exam Exam Vital Signs Date Time Temp Pulse Resp B/P (MAP) Pulse Ox O2 Delivery O2 Flow Rate FiO2 02/28/21 03:43 Vapotherm 15.00 35.00 02/28/21 03:09 36.3 02/28/21 03:08 95 Vapotherm 20.00 35 02/28/21 02:54 96 Vapotherm 20.00 35 02/28/21 00:00 75 25 148/91 (110) 94 Vapotherm 20.00 35.00 02/27/21 23:05 96 Vapotherm 20.00 40 02/27/21 23:04 36.2 02/27/21 23:00 93 20 176/99 (124) 92 Vapotherm 20.00 35.00 02/27/21 22:18 Vapotherm 20.00 35.00 02/27/21 22:15 95 Vapotherm 20.00 35 02/27/21 22:00 92 11 156/101 (119) 96 Vapotherm 20.00 40.00 02/27/21 21:00 91 151/90 (110) 98 Vapotherm 20.00 40.00 02/27/21 20:00 94 100/84 (89) 96 Vapotherm 20.00 40.00 02/27/21 20:00 96 Vapotherm 20.00 40 02/27/21 19:43 36.4 02/27/21 19:00 81 02/27/21 19:00 80 113/99 (104) 99 Vapotherm 20.00 40.00 02/27/21 19:00 Vapotherm 20.00 40.00 02/27/21 18:06 80 150/100 (117) 98 Vapotherm 25.00 40.00 02/27/21 18:03 98 Vapotherm 20.00 45 02/27/21 17:00 84 151/98 (115) 95 Vapotherm 25.00 40.00 02/27/21 16:17 36.0 02/27/21 16:00 92 Vapotherm 25.00 50 02/27/21 16:00 86 157/106 (123) Vapotherm 25.00 40.00 02/27/21 15:40 36.1 81 96 50 02/27/21 15:16 96 Vapotherm 20.00 50 02/27/21 15:00 80 11 146/97 (113) 95 Vapotherm 25.00 40.00 02/27/21 14:00 88 14 147/98 (114) Vapotherm 25.00 40.00 02/27/21 13:50 36.1 20 149/92 (111) 96 OxyMask 4 02/27/21 13:50 OxyMask 4 02/27/21 13:45 OxyMask 4 02/27/21 13:40 20 143/97 (112) 96 OxyMask 4 02/27/21 13:30 OxyMask 4 02/27/21 13:30 20 148/97 (114) 98 OxyMask 4 02/27/21 13:21 OxyMask 4 02/27/21 13:21 36.1 20 148/88 (108) 98 OxyMask 4 02/27/21 13:00 150/88 (108) Vapotherm 25.00 40.00 02/27/21 12:00 36.6 02/27/21 12:00 92 Vapotherm 25.00 40 02/27/21 12:00 97 28 91 Vapotherm 25.00 40.00 02/27/21 11:00 81 17 161/84 (109) 90 Vapotherm 25.00 40.00 02/27/21 10:00 84 13 146/71 (96) 91 Vapotherm 25.00 40.00 02/27/21 09:38 93 Vapotherm 20.00 40 02/27/21 09:00 96 20 173/106 (128) 95 Vapotherm 25.00 40.00 02/27/21 08:00 92 Vapotherm 25.00 40 02/27/21 08:00 92 16 119/81 (94) 92 Vapotherm 25.00 40.00 02/27/21 08:00 36.4 02/27/21 07:00 90 13 157/88 (111) 92 Vapotherm 25.00 40.00 02/27/21 07:00 89 02/27/21 06:00 87 16 171/101 (124) 93 Vapotherm 25.00 40.00 02/27/21 05:00 95 15 138/88 (105) 89 Vapotherm 25.00 40.00 02/27/21 04:00 93 17 17/154 (109) 94 Vapotherm 25.00 40.00 02/27/21 04:00 92 Vapotherm 25.00 40 I & O 02/28/21 07:00 Intake Total 1500 ml Output Total 3300 ml Balance -1800 ml Height & Weight Height: 5'3.00" Weight: 155lbs. 8.0oz. 70.252987rz; 28.65 BMI Method:Stated General Appearance: Anxious, Chronically ill, Thin, Other HEENT: Moist Mucous Membranes, Pale Conjunctivae (L), Other (Poor dentition) Neck: Non Tender, Limited Range of Motion Respiratory: Lungs Clear, Normal Breath Sounds, No Respiratory Distress, Decreased Breath Sounds Cardiovascular: Regular Rate, Rhythm, Normal Peripheral Pulses Capillary Refill: Less Than 3 Seconds Peripheral Pulses: 2+ Dorsalis Pedis (R), 2+ Left Dors-Pedis (L), 2+ Radial Pulses (R), 2+ Radial Pulses (L) Gastrointestinal: normal bowel sounds, distended; No guarding, No rebound; tenderness (2 bruises to right upper and left upper abdomen, mildly tender to palpation) Extremity: Normal Capillary Refill, Non Tender, No Pedal Edema Neurologic/Psychiatric: Alert Skin: Warm/Dry, Ecchymosis, Pallor, Other (multiple scattered abrasions, open sores, and bruising on extremities) Lymphatic: No Adenopathy Results Lab Laboratory Tests 02/27/21 05:29 02/28/21 00:52 Assessment/Plan Assessment/Plan Acute Exacerbation of COPD -Duoneb q4hrs -solumedrol 40mg Q12 -IS -Encourage cough and deep breathing Acute on chronic respiratory failure secondary to COPD -Oxygen via Vapotherm, titrate as tolerated Pneumonia with sepsis -Coverage with cefepime -LR @ 60ml/hr S/P port placement 5-18 Hyperkalemia -1 amp D50 with 10 units insulin IVP -continue to monitor Hyponatremia- resolved -Monitor Chronic methamphetamine use -Monitor for withdrawal Dehydration with acute renal insufficiency improving -Continue IVF's -Continue to monitor Anemia of chronic disease- stable -Hemoglobin 8.6 -Continue to monitor Lymphopenia -Continue to monitor History of seizure disorders -Keppra and phenobarbital started -PRN ativan Noninsulin dependent diabetes mellitus -Monitor glucoses and treat PRN Hypertension -Continue antihypertensives as ordered -Monitor Hx of Hepatitis C -monitor LFT's Hx of Pancreatitis -Monitor Hx of CVA -Monitor RICARDA BALDERRAMA DO 02/28/21 0520: Assessment/Plan Assessment/Plan Acute Exacerbation of COPD -Duoneb q4hrs -solumedrol 40mg Q12 -IS -Encourage cough and deep breathing Acute on chronic respiratory failure secondary to COPD -Oxygen via Vapotherm, titrate as tolerated Pneumonia with sepsis -Coverage with cefepime -LR @ 60ml/hr S/P port placement 5-18 Hyperkalemia -1 amp D50 with 10 units insulin IVP -continue to monitor Hyponatremia- resolved -Monitor Chronic methamphetamine use -Monitor for withdrawal Dehydration with acute renal insufficiency improving -Continue IVF's -Continue to monitor Anemia of chronic disease- stable -Hemoglobin 8.6 -Continue to monitor Lymphopenia -Continue to monitor History of seizure disorders -Keppra and phenobarbital started -PRN ativan Noninsulin dependent diabetes mellitus -Monitor glucoses and treat PRN Hypertension -Continue antihypertensives as ordered -Monitor Hx of Hepatitis C -monitor LFT's Hx of Pancreatitis -Monitor Hx of CVA -Monitor Supervisory-Addendum Brief Verification & Attestation Participated in pt care: history, MDM, physical Personally performed: exam, history, MDM, supervision of care Care discussed with: Medical Student Procedures: n/a Results interpretation: Verified all documentation Verification and Attestation of Medical Student E/M Service A medical student performed and documented this service in my presence. I reviewed and verified all information documented by the medical student and made modifications to such information, when appropriate. I personally performed the physical exam and medical decision making. Ricarda Balderrama, March 08, 2021,12:20 RHIANNON PISANO MED STUDENT February 28, 2021 03:57 RICARDA BALDERRAMA DO February 28, 2021 05:20
[2021-02-28] MEDS: hydrALAZINE (APRESOLINE) 25 MG TAB PO SCH ×6 (05:05→22:38)
[2021-02-28] MEDS ORDERED: FUROSEMIDE 40 MG/4 ML INJ (LASIX) ONE (05:18)
[2021-02-28] MEDS ORDERED: DEXTROSE 50% 50 ML (IMS) SYR ONE (05:18)
[2021-02-28] MEDS ORDERED: inSUlin (REGULAR) HUMAN 1 UNIT/0.01 ML (CHARGE PER UNIT) ONE (05:19)
[2021-02-28] MEDS ORDERED: DEXTROSE 50% 50 ML (IMS) SYR IV ONE (05:30)
[2021-02-28] MEDS ORDERED: FUROSEMIDE 40 MG/4 ML INJ (LASIX) IV ONE (05:30)
[2021-02-28] MEDS ORDERED: inSUlin (REGULAR) HUMAN 1 UNIT/0.01 ML (CHARGE PER UNIT) IV ONE (05:30)
--- NOTE | 2021-02-28 07:45 | Diagnostic Imaging Report ---
INDICATION: Pneumonia. COMPARISON: 02/27/2021 FINDINGS: Single frontal radiograph view the chest was obtained and demonstrates slight overall improved aeration. Some residual patchy opacities persist within the left base. Small effusion cannot be excluded. There is no large effusion on the right. No pneumothorax is seen on either side. Cardiac silhouette and pulmonary vasculature stable. Left-sided subclavian Port-A-Cath is noted with tip in the SVC. Osseous structures show no gross acute abnormalities. IMPRESSION: 1. Overall improved aeration, but probable residual small left effusion and associated left basilar atelectasis and/or infiltrate. Dictated by: Dictated on workstation # [id number]
--- NOTE | 2021-02-28 09:33 | Progress Note - Hospitalist ---
Subjective HPI/CC On Admission Date Seen by Provider: February 28, 2021 Time Seen by Provider: 10:00 This is a 60-year-old white female with a history of chronic methamphetamine use who presented to the emergency room with increased shortness of breath. I was in her room this morning she began having coughing and stridor and acute shor tness of breath. Oxygen saturations were in the 70s to 80s with stridorous respirations. Racemic epinephrine was administered by RT with breathing treatment and Ativan was given for her anxiety with improvement in her oxygenation and respiratory status. Does request a DNR Subjective/Events-last exam Pt doing about the same Meth withdrawal now No seizures Not taking any medication due to drowsiness Very labile behaviors Long recovery expected Focused Exam Time of Focused Exam: 18:14 Objective Exam Vital Signs Vital Signs Date Time Temp Pulse Resp B/P (MAP) Pulse Ox O2 Delivery O2 Flow Rate FiO2 03/01/21 05:00 83 22 187/108 (134) 95 Vapotherm 15.00 35.00 03/01/21 04:10 35 03/01/21 03:21 36.6 Capillary Refill : Less Than 3 Seconds General Appearance: Anxious, Chronically ill Respiratory: Lungs Clear Cardiovascular: Regular Rate, Rhythm Neurologic/Psychiatric: Alert, Disoriented Results/Procedures Lab Laboratory Tests 02/28/21 23:05 03/01/21 02:47 Patient resulted labs reviewed. Assessment/Plan Assessment and Plan Assess & Plan/Chief Complaint Assessment: Seizure d/o Meth use Debility CAD HTN Plan: Seizure management HTN management 02/27/21: Port placement [place]? 02/28/21: Meth withdrawal Complex issues Critical Care Critically Ill Patient RAJAN VALDOVINOS DO February 28, 2021 09:33
[2021-02-28] MEDS: LORazepam INJ 2 MG/ML (ATIVAN) VIAL IVP PRN (09:39)
[2021-02-28] MEDS: methylPREDNISolone 40 MG/ML (Solu-MEDROL) VIAL IVP SCH ×2 (09:40→20:54)
[2021-02-28] MEDS: cloNIDine 0.2 MG (CATAPRES) TAB PO SCH ×2 (09:57→21:00)
[2021-02-28] MEDS: DIVALPROEX 250 MG DELAYED RELEASE (DEPAKOTE) TAB PO SCH ×3 (09:57→21:00)
[2021-02-28] MEDS: FAMOTIDINE 20 MG (PEPCID) TABLET PO SCH (09:57)
[2021-02-28] MEDS: PHENobarbital 64.8 MG (1 GRAIN) TAb PO SCH ×2 (09:57→20:59)
[2021-02-28] MEDS: amLODIPine 10 MG (NORVASC) TAB PO SCH ×2 (09:58→21:01)
[2021-02-28 14:23] LABS: ABG BASE EXCESS 2.2 MMOL/L (-2.5-2.5); ABG OXYGEN SATURATION 94 % (94-100); ABG PCO2 49 MMHG (35-45); ABG PH 7.36 (7.37-7.43); ABG PO2 71 MMHG (79-93); ABG TCO2 28.8 MMOL/L (21.0-31.0)
[2021-02-28 14:24] LABS: ALLENS TEST YES-POS; INSPIRED O2 35%; PATIENT TEMP 36.4; VENTILATOR NO
[2021-02-28] MEDS: LACTATED RINGERS 1,000 ML IV SCH (15:13)
[2021-02-28 23:25] LABS: POTASSIUM 5.3 MMOL/L (3.6-5.0)
[2021-02-28 23:26] LABS: CALCIUM 8.5 MG/DL (8.5-10.1)
[2021-02-28 23:30] LABS: CREATININE SERUM 1.17 MG/DL (0.60-1.30)
[2021-03-01] MEDS ORDERED: hydrALAZINE (APESOLINE) 20 MG/ML VIAL IV ONE (01:00)
[2021-03-01] MEDS: CEFEPIME INJECTION 1,000 MG in WATER (STERILE) FOR INJECTION 10 ML IV SCH ×3 (02:19→16:52)
[2021-03-01] MEDS: RT-ALBUTEROL/IPRATROPIUM 3 ML (DUONEB) VIAL INH SCH ×6 (02:25→22:15)
[2021-03-01 02:53] LABS: BASOPHILS % (AUTO) 1 % (0-10); EOSINOPHILS # (AUTO) 0.1 10^3/uL (0.0-0.3); EOSINOPHILS % (AUTO) 1 % (0-10); HEMATOCRIT 33 % (35-52); HEMOGLOBIN 10.1 g/dL (11.5-16.0); LYMPHOCYTES # (AUTO) 1.4 10^3/uL (1.0-4.0); LYMPHOCYTES % (AUTO) 20 % (12-44); MEAN CORPUSCULAR HEMOGLOBIN 27 pg (25-34); MEAN CORPUSCULAR HGB CONC 31 g/dL (32-36); MEAN CORPUSCULAR VOLUME 87 fL (80-99); MEAN PLATELET VOLUME 9.9 fL (9.0-12.2); MONOCYTES # (AUTO) 0.2 10^3/uL (0.0-1.0); MONOCYTES % (AUTO) 3 % (0-12); NEUTROPHILS # (AUTO) 5.2 10^3/uL (1.8-7.8); NEUTROPHILS % (AUTO) 75 % (42-75); PLATELET COUNT 478 10^3/uL (130-400)
[2021-03-01 03:19] LABS: POTASSIUM 5.3 MMOL/L (3.6-5.0)
[2021-03-01 03:20] LABS: CALCIUM 8.7 MG/DL (8.5-10.1)
[2021-03-01 03:24] LABS: PHOSPHORUS 3.8 MG/DL (2.3-4.7)
[2021-03-01 03:25] LABS: CREATININE SERUM 1.18 MG/DL (0.60-1.30)
[2021-03-01 03:27] LABS: MAGNESIUM 1.9 MG/DL (1.6-2.4)
--- NOTE | 2021-03-01 03:44 | Pulmonary Progress Note ---
RHIANNON PISANO MED STUDENT 03/01/21 0344: Subjective Date Seen by a Provider: March 01, 2021 Time Seen by a Provider: 03:42 Subjective/Events-last exam Patient asleep upon entering. Vitals stable per monitor. Review of Systems General: No Chills, No Night Sweats HEENT: No Head Aches, No Visual Changes Pulmonary: No Dyspnea, No Cough Cardiovascular: No: Chest Pain, Palpitations Gastrointestinal: No: Nausea, Vomiting, Abdominal Pain Genitourinary: No Dysuria, No Frequency Musculoskeletal: No: neck pain, back pain Neurological: No: Weakness, Numbness Sepsis Event Evaluation Height, Weight, BMI Height: 5'3.00" Weight: 155lbs. 8.0oz. 70.215813cd; 28.65 BMI Method:Stated Focused Exam Time of Focused Exam: 18:14 Exam Exam Vital Signs Date Time Temp Pulse Resp B/P (MAP) Pulse Ox O2 Delivery O2 Flow Rate FiO2 03/01/21 03:21 36.6 03/01/21 03:00 85 18 185/104 (131) 96 Vapotherm 15.00 35.00 03/01/21 02:25 94 Vapotherm 15.00 35 03/01/21 02:00 85 22 186/103 (130) 95 Vapotherm 15.00 35.00 03/01/21 01:00 82 03/01/21 01:00 82 23 192/116 (141) 94 Vapotherm 15.00 35.00 03/01/21 00:29 Vapotherm 15.00 35 03/01/21 00:00 36.4 03/01/21 00:00 80 20 189/116 (140) 93 Vapotherm 15.00 35.00 02/28/21 23:00 76 20 182/112 (135) 94 Vapotherm 15.00 35.00 02/28/21 22:24 95 Vapotherm 15.00 35 02/28/21 22:00 75 17 179/101 (127) 97 Vapotherm 15.00 35.00 02/28/21 21:00 86 12 182/112 (135) 97 Vapotherm 15.00 35.00 02/28/21 20:53 36.3 81 20 179/111 (133) 95 Vapotherm 15.00 35.00 02/28/21 20:00 95 Vapotherm 15.00 35 02/28/21 20:00 79 39 179/107 (131) 97 Vapotherm 15.00 40.00 02/28/21 19:00 85 19 177/106 (129) 96 Vapotherm 15.00 40.00 02/28/21 19:00 85 02/28/21 18:38 96 Vapotherm 15.00 35 02/28/21 18:00 79 17 168/98 (121) 95 Vapotherm 15.00 40.00 02/28/21 17:00 81 32 169/103 (125) 97 Vapotherm 15.00 40.00 02/28/21 16:48 36.2 02/28/21 16:01 96 Vapotherm 15.00 40 02/28/21 16:00 80 34 159/96 (117) 96 Vapotherm 15.00 40.00 02/28/21 15:00 81 15 170/99 (122) 94 Vapotherm 15.00 40.00 02/28/21 14:00 82 18 169/95 (119) 94 Vapotherm 15.00 40.00 02/28/21 13:36 92 Vapotherm 15.00 35 02/28/21 13:00 87 19 181/120 (140) 97 Vapotherm 15.00 40.00 02/28/21 12:47 86 02/28/21 12:00 84 15 179/102 (127) 95 Vapotherm 15.00 40.00 02/28/21 11:40 36.6 02/28/21 11:17 96 Vapotherm 15.00 40 02/28/21 11:11 Vapotherm 15.00 40.00 02/28/21 11:00 86 17 171/100 (123) 92 Vapotherm 15.00 28.00 02/28/21 10:40 Vapotherm 15.00 28.00 02/28/21 10:37 92 Vapotherm 20.00 28 02/28/21 10:00 94 44 166/95 (118) 89 Vapotherm 15.00 30.00 02/28/21 09:00 87 14 169/99 (122) 93 Vapotherm 15.00 30.00 02/28/21 08:30 92 Vapotherm 15.00 21 02/28/21 08:00 35.9 5/19/21 08:00 82 12 160/90 (113) 94 Vapotherm 15.00 30.00 02/28/21 07:00 82 14 153/91 (111) 95 Vapotherm 15.00 30.00 02/28/21 06:49 83 02/28/21 06:39 96 Vapotherm 20.00 25 02/28/21 06:35 Vapotherm 15.00 30.00 02/28/21 06:00 85 12 159/90 (113) 97 Vapotherm 15.00 35.00 02/28/21 05:34 Vapotherm 15.00 35.00 02/28/21 05:09 Vapotherm 15.00 30.00 02/28/21 05:00 84 12 161/101 (121) 93 Vapotherm 15.00 35.00 02/28/21 04:00 81 13 160/106 (124) 95 Vapotherm 15.00 35.00 02/28/21 03:43 Vapotherm 15.00 35.00 I & O 03/01/21 07:00 Intake Total 420 ml Output Total 4325 ml Balance -3905 ml Height & Weight Height: 5'3.00" Weight: 155lbs. 8.0oz. 70.068037xx; 28.65 BMI Method:Stated General Appearance: No Apparent Distress, Chronically ill HEENT: Moist Mucous Membranes, Pale Conjunctivae (L), Other (Poor dentition) Neck: Non Tender, Limited Range of Motion Respiratory: Lungs Clear, Normal Breath Sounds, No Accessory Muscle Use, No Respiratory Distress Cardiovascular: Regular Rate, Rhythm, Normal Peripheral Pulses Capillary Refill: Less Than 3 Seconds Peripheral Pulses: 2+ Dorsalis Pedis (R), 2+ Left Dors-Pedis (L), 2+ Radial Pulses (R), 2+ Radial Pulses (L) Gastrointestinal: normal bowel sounds, distended; No guarding, No rebound; tenderness (2 bruises to right upper and left upper abdomen, mildly tender to palpation) Extremity: Normal Capillary Refill, Non Tender, No Pedal Edema Neurologic/Psychiatric: Alert Skin: Warm/Dry, Ecchymosis, Pallor, Other (multiple scattered abrasions, open sores, and bruising on extremities) Lymphatic: No Adenopathy Results Lab Laboratory Tests 02/27/21 05:29 02/28/21 00:52 02/28/21 23:05 03/01/21 02:47 Assessment/Plan Assessment/Plan Acute Exacerbation of COPD -Duoneb q4hrs -solumedrol 40mg Q12 -IS -Encourage cough and deep breathing Acute on chronic respiratory failure secondary to COPD -Oxygen via Vapotherm, titrate as tolerated Pneumonia with sepsis- Improving -Coverage with cefepime -LR @ 60ml/hr S/P port placement 5-18 Hyperkalemia -K 5.3 this am -continue to monitor Hyponatremia- resolved -Monitor Chronic methamphetamine use -Monitor for withdrawal Dehydration with acute renal insufficiency Improved -Continue IVF's -Continue to monitor Anemia of chronic disease- Stable, Improving -Hemoglobin 10.1 -Continue to monitor Lymphopenia -Continue to monitor History of seizure disorders -Keppra and phenobarbital started -PRN ativan Noninsulin dependent diabetes mellitus -Monitor glucoses and treat PRN Hypertension -Continue antihypertensives as ordered -Monitor Hx of Hepatitis C -monitor LFT's Hx of Pancreatitis -Monitor Hx of CVA -Monitor RICARDA BALDERRAMA DO 03/01/21 0522: Assessment/Plan Assessment/Plan Acute Exacerbation of COPD -Duoneb q4hrs -solumedrol 40mg Q12 -IS -Encourage cough and deep breathing Acute on chronic respiratory failure secondary to COPD -Oxygen via Vapotherm, titrate as tolerated -Change to NC Pneumonia with sepsis- Improving -Coverage with cefepime -LR @ 60ml/hr --- D/ C IVF S/P port placement 5-18 Hyperkalemia -K 5.3 this am -Will give Lasix 40mg x 1 -continue to monitor Hyponatremia- resolved -Monitor Chronic methamphetamine use -Monitor for withdrawal Dehydration with acute renal insufficiency Improved -Continue IVF's -Continue to monitor Anemia of chronic disease- Stable, Improving -Hemoglobin 10.1 -Continue to monitor Lymphopenia -Continue to monitor History of seizure disorders -Keppra and phenobarbital started -PRN ativan Noninsulin dependent diabetes mellitus -Monitor glucoses and treat PRN Hypertension -Continue antihypertensives as ordered -Monitor Hx of Hepatitis C -monitor LFT's Hx of Pancreatitis -Monitor Hx of CVA -Monitor Supervisory-Addendum Brief Verification & Attestation Participated in pt care: history, MDM, physical Personally performed: exam, history, MDM, supervision of care Care discussed with: Medical Student Procedures: n/a Results interpretation: Verified all documentation Verification and Attestation of Medical Student E/M Service A medical student performed and documented this service in my presence. I reviewed and verified all information documented by the medical student and made modifications to such information, when appropriate. I personally performed the physical exam and medical decision making. Ricarda Balderrama, March 01, 2021,05:22 RHIANNON PISANO MED STUDENT March 01, 2021 03:44 RICARDA BALDERRAMA DO March 01, 2021 05:22
[2021-03-01] MEDS ORDERED: FUROSEMIDE 40 MG/4 ML INJ (LASIX) IVP ONE (05:30)
[2021-03-01] MEDS: hydrALAZINE (APRESOLINE) 25 MG TAB PO SCH ×5 (05:38→20:50)
--- NOTE | 2021-03-01 08:21 | Diagnostic Imaging Report ---
Indication: Pneumonia, respiratory failure Comparison: 02/28/2021 TECHNIQUE: Single radiograph chest dated 03/01/2021 FINDINGS: Left-sided Port-A-Cath is again identified and stable. The cardiac silhouette is stable. No significant pulmonary vascular congestion. Improved aeration of the lungs with improved though persisting small left basilar pleural-parenchymal opacity. No significant right pleural effusion. No pneumothorax. Osseous structures are stable without new acute osseous abnormality. IMPRESSION: Improved aeration of the lungs with improved though mild persisting left basilar infiltrate and/or atelectasis with associated tiny left pleural effusion. Dictated by: Dictated on workstation # [id number]
[2021-03-01] MEDS: DOCUSATE SODIUM 100 MG (COLACE) CAP PO SCH ×2 (09:00→20:47)
[2021-03-01] MEDS: methylPREDNISolone 40 MG/ML (Solu-MEDROL) VIAL IVP SCH ×2 (09:21→20:47)
[2021-03-01] MEDS: PHENobarbital 64.8 MG (1 GRAIN) TAb PO SCH ×2 (09:22→20:47)
[2021-03-01] MEDS: cloNIDine 0.2 MG (CATAPRES) TAB PO SCH ×2 (09:22→20:55)
[2021-03-01] MEDS: amLODIPine 10 MG (NORVASC) TAB PO SCH ×2 (09:22→20:47)
[2021-03-01] MEDS: FAMOTIDINE 20 MG (PEPCID) TABLET PO SCH (09:22)
[2021-03-01] MEDS: DIVALPROEX 250 MG DELAYED RELEASE (DEPAKOTE) TAB PO SCH ×3 (09:22→20:47)
--- NOTE | 2021-03-01 10:47 | Progress Note - Hospitalist ---
Subjective HPI/CC On Admission Date Seen by Provider: March 01, 2021 Time Seen by Provider: 11:00 This is a 60-year-old white female with a history of chronic methamphetamine use who presented to the emergency room with increased shortness of breath. I was in her room this morning she began having coughing and stridor and acute shor tness of breath. Oxygen saturations were in the 70s to 80s with stridorous respirations. Racemic epinephrine was administered by RT with breathing treatment and Ativan was given for her anxiety with improvement in her oxygenation and respiratory status. Does request a DNR Subjective/Events-last exam Pt still pretty drowsy from the port placement two days ago but she has had no seizures Transferring to floor today [place] declined transfer since she is off Vapotherm Review of Systems Neurological: Confusion Focused Exam Time of Focused Exam: 18:14 Objective Exam Vital Signs Vital Signs Date Time Temp Pulse Resp B/P (MAP) Pulse Ox O2 Delivery O2 Flow Rate FiO2 03/01/21 20:05 35.7 77 20 158/89 (112) 99 Nasal Cannula 3.00 03/01/21 04:10 35 Capillary Refill : Less Than 3 Seconds General Appearance: No Apparent Distress, WD/WN, Chronically ill Respiratory: Decreased Breath Sounds Cardiovascular: Regular Rate, Rhythm Neurologic/Psychiatric: Disoriented Results/Procedures Lab Laboratory Tests 02/28/21 23:05 03/01/21 02:47 Patient resulted labs reviewed. Assessment/Plan Assessment and Plan Assess & Plan/Chief Complaint Assessment: Seizure d/o Meth use Debility CAD HTN Plan: Seizure management HTN management 02/27/21: Port placement [place]? 02/28/21: Meth withdrawal Complex issues 03/01/21: Move to floor Monitor closely Critical Care Critically Ill Patient RAJAN VALDOVINOS DO March 01, 2021 10:47
[2021-03-01] MEDS ORDERED: hydrALAZINE (APRESOLINE) 25 MG TAB PO PRN (14:30)
[2021-03-02] MEDS: RT-ALBUTEROL/IPRATROPIUM 3 ML (DUONEB) VIAL INH SCH ×6 (02:31→22:21)
[2021-03-02] MEDS: LORazepam INJ 2 MG/ML (ATIVAN) VIAL IVP PRN ×2 (05:18→16:48)
--- NOTE | 2021-03-02 05:46 | Progress Note - Hospitalist ---
Subjective HPI/CC On Admission Date Seen by Provider: March 02, 2021 Time Seen by Provider: 11:00 This is a 60-year-old white female with a history of chronic methamphetamine use who presented to the emergency room with increased shortness of breath. I was in her room this morning she began having coughing and stridor and acute shor tness of breath. Oxygen saturations were in the 70s to 80s with stridorous respirations. Racemic epinephrine was administered by RT with breathing treatment and Ativan was given for her anxiety with improvement in her oxygenation and respiratory status. Does request a DNR Subjective/Events-last exam Pt doing about the same Sleeping well Sleeping all the time Creatinine 1.22 No seizures reported No significant complaints Review of Systems General: Fatigue Focused Exam Time of Focused Exam: 18:14 Objective Exam Vital Signs Vital Signs Date Time Temp Pulse Resp B/P (MAP) Pulse Ox O2 Delivery O2 Flow Rate FiO2 03/03/21 02:13 94 Nasal Cannula 2.00 03/03/21 00:08 36.0 78 20 162/89 (113) 03/01/21 04:10 35 Capillary Refill : Less Than 3 Seconds General Appearance: No Apparent Distress, WD/WN, Chronically ill, Other (asleep) Respiratory: Lungs Clear Cardiovascular: Regular Rate, Rhythm Results/Procedures Lab Laboratory Tests 03/02/21 06:10 Patient resulted labs reviewed. Assessment/Plan Assessment and Plan Assess & Plan/Chief Complaint Assessment: Seizure d/o Meth use Debility CAD HTN Plan: Seizure management HTN management 02/27/21: Port placement [place]? 02/28/21: Meth withdrawal Complex issues 03/01/21: Move to floor Monitor closely 03/02/21: Supportive care Critical Care Critically Ill Patient RAJAN VALDOVINOS DO March 02, 2021 05:46
[2021-03-02] MEDS: morphine INJ 10 MG/ML 1ML (SYR OR VIAL) IVP PRN (05:55)
[2021-03-02 06:19] LABS: BASOPHILS % (AUTO) 0 % (0-10); EOSINOPHILS # (AUTO) 0.1 10^3/uL (0.0-0.3); EOSINOPHILS % (AUTO) 1 % (0-10); HEMATOCRIT 37 % (35-52); HEMOGLOBIN 11.4 g/dL (11.5-16.0); LYMPHOCYTES # (AUTO) 2.4 10^3/uL (1.0-4.0); LYMPHOCYTES % (AUTO) 30 % (12-44); MEAN CORPUSCULAR HEMOGLOBIN 27 pg (25-34); MEAN CORPUSCULAR HGB CONC 31 g/dL (32-36); MEAN CORPUSCULAR VOLUME 87 fL (80-99); MEAN PLATELET VOLUME 9.8 fL (9.0-12.2); MONOCYTES # (AUTO) 0.5 10^3/uL (0.0-1.0); MONOCYTES % (AUTO) 6 % (0-12); NEUTROPHILS # (AUTO) 5.1 10^3/uL (1.8-7.8); NEUTROPHILS % (AUTO) 63 % (42-75); PLATELET COUNT 574 10^3/uL (130-400); WHITE BLOOD COUNT 8.1 10^3/uL (4.3-11.0)
[2021-03-02 06:40] LABS: ALBUMIN 3.4 GM/DL (3.2-4.5)
[2021-03-02 06:41] LABS: POTASSIUM 4.6 MMOL/L (3.6-5.0)
[2021-03-02 06:45] LABS: BILIRUBIN,TOTAL 0.3 MG/DL (0.1-1.0)
[2021-03-02 06:47] LABS: CREATININE SERUM 1.22 MG/DL (0.60-1.30)
[2021-03-02] MEDS: FAMOTIDINE 20 MG (PEPCID) TABLET PO SCH (09:13)
[2021-03-02] MEDS: methylPREDNISolone 40 MG/ML (Solu-MEDROL) VIAL IVP SCH ×2 (09:13→21:18)
[2021-03-02] MEDS: hydrALAZINE (APRESOLINE) 25 MG TAB PO SCH ×3 (09:13→21:17)
[2021-03-02] MEDS: PHENobarbital 64.8 MG (1 GRAIN) TAb PO SCH ×2 (09:14→21:18)
[2021-03-02] MEDS: DOCUSATE SODIUM 100 MG (COLACE) CAP PO SCH ×2 (09:14→21:17)
[2021-03-02] MEDS: amLODIPine 10 MG (NORVASC) TAB PO SCH ×2 (09:14→21:18)
[2021-03-02] MEDS: cloNIDine 0.2 MG (CATAPRES) TAB PO SCH ×2 (09:14→21:17)
[2021-03-02] MEDS: DIVALPROEX 250 MG DELAYED RELEASE (DEPAKOTE) TAB PO SCH ×3 (09:14→21:17)
--- NOTE | 2021-03-02 10:36 | Physical Therapy Evaluation ---
PT Evaluation-General Medical Diagnosis Admission Date February 24, 2021 at 18:15 Medical Diagnosis: dystonia/pneumonia/sepsis Onset Date: February 24, 2021 Therapy Diagnosis Therapy Diagnosis: severe weakness/debility Height/Weight Height (Feet): 5 Height (Inches): 3.00 Weight (Pounds): 155 Weight (Ounces): 8.0 Precautions Precautions/Isolations: Seizure, Fall Prevention Referral Physician: Jorge Reason for Referral: Evaluation/Treatment Medical History Pertinent Medical History: Arthritis, COPD, CVA, DM, GERD, HTN, Renal Insufficiency, Smoking, TBI Additional Medical History polysubstance abuse Current History EMS secondary to SOA Reviewed History: Yes Prior Prior Level of Function SCALE: Activities may be completed with or without assistive devices. 6-Baojjuodpd-zpfqmhb completes the activity by him/herself with no assistance from a helper. 5-Set-up or Clean-up Assistance-helper sets up or cleans up; patient completes activity. [place] assists only prior to or following the activity. 4-Supervision or Touching Assistance-helper provides verbal cues and/or touching/steadying and/or contact guard assistance as patient completes activity. Assistance may be provided throughout the activity or intermittently. 3-Partial/Moderate Assistance-helper does LESS THAN HALF the effort. [place] lifts, holds or supports trunk or limbs, but provides less than half the effort. 2-Substantial/Maximal Assistance-helper does MORE THAN HALF the effort. [place] lifts or holds trunk or limbs and provides more than half the effort. 6-Tjibizvxh-pvlcxw does ALL the effort. Patient does none of the effort to complete the activity. Or, the assistance of 2 or more helpers is required for the patient to complete the activity. If activity was not attempted, code reason: 7-Patient Refused. 9-Not Applicable-not attempted and the patient did not perform the activity before the current illness, exacerbation or injury. 10-Not Attempted due to Environmental Limitations-(lack of equipment, weather restraints, etc.). 88-Not Attempted due to Medical Conditions or Safety Concerns. Bed Mobility: 6 Transfers (B,C,W/C): 6 Gait: 6 Indoor Mobility (Ambulation): Independent Prior Devices Use: Walker PT Evaluation-Current Subjective Patient in bed. Very lethargic. Objective Patient Orientation: Confused, Eyes Open (slightly), Mumbles ROM/Strength ROM Lower Extremities bilateral LE WFL Strength Lower Extremities 2-/5 grossly bilateral LE Integumentary/Posture Integumentary refer to nursing notes ( noted edema bilateral UE's) Bladder Incontinence: [place] Cath Posture WFL Neuromuscular (Tone, Coordination, Reflexes) dystonia/severe loss of coordination Sensory Vision: Unable to Assess Hearing: Functional Sensation Right Lower Extremit: Impaired Sensation Left Lower Extremity: Impaired Transfers Roll Left to Right (QC): 1 Sit to Lying (QC): 1 Lying to Sitting/Side of Bed(Q: 2 Sit to Stand (QC): 88 Chair/Wqb-fr-Iblqy Xfer(QC): 88 Toilet Transfer (QC): 88 patient sat EOB with assistance due to dystonia/unable to follow simple direction Balance Sitting Static: Poor Sitting Dynamic: Poor Assessment/Needs 60 y.o. female, will benefit from skilled PT to address functional strength and mobility to improve current LOF. Patient displays severe impairment with all gross motor skills/tasks. Rehab Potential: Guarded PT Nursing Home Goals Tool Profiling Machine Set Up Operator Goals PT Tool Profiling Machine Set Up Operator Goals Time Frame: Mar 17, 2021 Roll Left & Right (QC): 4 Sit to Lying (QC): 4 Lying-Sitting on Side/Bed(QC): 4 Sit to Stand (QC): 4 Chair/Jjh-tq-Zqbqm Xfer(QC): 4 Toilet Transfer (QC): 4 Does the Patient Walk: Yes Walk 10 feet (QC): 3 Walk 50ft with 2 Turns (QC): 3 Walk 150 ft (QC): 3 PT Plan Problem List Problem List: Activity Tolerance, Functional Strength, Safety, Balance, Gait, Transfer, Bed Mobility Treatment/Plan Treatment Plan: Continue Plan of Care Treatment Plan: Bed Mobility, Education, Functional Activity Bernie, Functional Strength, Gait, Safety, Therapeutic Exercise, Transfers Treatment Duration: Mar 17, 2021 Frequency: 6 times per week Estimated Hrs Per Day: .25 hour per day Discharge Recommendations Therapy Discharge Recommendati: Other, See Comments (prison facility) Time/GCodes Time In: 1004 Time Out: 1015 Total Billed Treatment Time: 11 Total Billed Treatment 1 visit EVModC 11 min ANURAG GENTILE PT March 02, 2021 10:36
--- NOTE | 2021-03-02 14:45 | Occupational Therapy Eval ---
OT Evaluation-General/PLF Medical Diagnosis Admission Date February 24, 2021 at 18:15 Medical Diagnosis: dystonia/pneumonia/sepsis Onset Date: February 24, 2021 Therapy Diagnosis Therapy Diagnosis: weakness Height/Weight Height (Feet): 5 Height (Inches): 3.00 Weight (Pounds): 155 Weight (Ounces): 8.0 Precautions Precautions/Isolations: Seizure, Fall Prevention Referral Physician: Jorge Referral Reason: Evaluation/Treatment Medical History Pertinent Medical History: Arthritis, COPD, CVA, DM, GERD, HTN, Renal Insufficiency, Smoking, TBI Additional Medical History polysubstance abuse Current History EMS due to SOA Reviewed History: Yes ADL-Prior Level of Function SCALE: Activities may be completed with or without assistive devices. 4-Wepvoemrzk-zyhhswb completes the activity by him/herself with no assistance from a helper. 5-Set-up or Clean-up Assistance-helper sets up or cleans up; patient completes activity. [place] assists only prior to or following the activity. 4-Supervision or Touching Assistance-helper provides verbal cues and/or touching/steadying and/or contact guard assistance as patient completes activity. Assistance may be provided throughout the activity or intermittently. 3-Partial/Moderate Assistance-helper does LESS THAN HALF the effort. [place] lifts, holds or supports trunk or limbs, but provides less than half the effort. 2-Substantial/Maximal Assistance-helper does MORE THAN HALF the effort. [place] lifts or holds trunk or limbs and provides more than half the effort. 7-Iyklvxfie-lqubch does ALL the effort. Patient does none of the effort to complete the activity. Or, the assistance of 2 or more helpers is required for the patient to complete the activity. If activity was not attempted, code reason: 7-Patient Refused. 9-Not Applicable-not attempted and the patient did not perform the activity before the current illness, exacerbation or injury. 10-Not Attempted due to Environmental Limitations-(lack of equipment, weather restraints, etc.). 88-Not Attempted due to Medical Conditions or Safety Concerns. ADL PLOF Comments Pt unable to provide any information Self Care: Unknown Functional Cognition: Unknown OT Current Status Subjective Pt laying in bed sleeping, awoken and communicates with OT. Current Upper Extremity ROM decreased Upper Extremity Coordination decreased Upper Extremity Strength decreased ADL-Treatment Eating (QC): 4 (SBA) Other Treatments Pt laying in bed sleeping, awoken and communicates with OT. Pt's lunch tray on table, OT assists pt with setting up food and she was able to reach forward and take a few bites of finger food. Pt begins reaching for dish of peaches, OT po sitioned peaches closer to pt and places spoon in pt's hand. OT gathered cup of ice and a straw and opened can of soda for pt. She did not use spoon to eat any of the peaches. Pt then closed her eyes and began tossing herself forward and backward in bed. OT attempted to calm pt and get pt to stop, but pt would not follow OT directions. Nurse notified and states pt has been doing this all day when she does not want to participate. Lunch tray removed from table so pt did not toss her food on the floor. Post tx, pt laying in bed, all needs met, nurse present. Education OT Patient Education: Correct positioning, Modified ADL techniques, Progress toward Goal/Update tx plan, Purpose of tx/functional activities Teaching Recipient: Patient Teaching Methods: Discussion Response to Teaching: Reinforcement Needed OT Subsurface Augmentee Operator Goals Longterm Goals Time Frame: Mar 16, 2021 Eating (QC): 6 Oral Hygiene (QC): 6 Toileting Hygiene (QC): 4 Shower/Bathe Self (QC): 4 Upper Body Dressing (QC): 5 Lower Body Dressing (QC): 4 On/Off Footwear (QC): 4 Additional Goals: 1-Demonstrate ADL Tasks, 2-Verbalize Understanding, 3- ImproveStrength/Bernie 1=Demonstrate adherence to instructed precautions during ADL tasks. 2=Patient will verbalize/demonstrate understanding of assistive devices/modifications for ADL. 3=Patient will improve strength/tolerance for activity to enable patient to perform ADL's. OT Education/Plan Problem List/Assessment Assessment: Decreased Activ Tolerance, Decreased Safety Aware, Decreased UE Strength, Impaired Funct Balance, Impaired I ADL's, Impaired Self-Care Skills, Restricted Funct UE ROM Discharge Recommendations Plan/Recommendations: Continue POC Therapy Discharge Recommendati: Other, See Comments (SNF) Treatment Plan/Plan of Care Patient would benefit from OT for education, treatment and training to promote independence in ADL's, mobility, safety and/or upper extremity function for ADL's. Plan of Care: ADL Retraining, Functional Mobility, UE Funct Exercise/Act Treatment Duration: Mar 16, 2021 Frequency: 5 times per week Estimated Hrs Per Day: .25 hour per day Rehab Potential: Guarded Time/GCodes Start Time: 13:42 Stop Time: 13:50 Total Time Billed (hr/min): 8 Billed Treatment Time 1, SHAD NUNEZ OT March 02, 2021 14:45
[2021-03-03] MEDS: RT-ALBUTEROL/IPRATROPIUM 3 ML (DUONEB) VIAL INH SCH ×4 (02:13→14:27)
[2021-03-03] MEDS: LORazepam INJ 2 MG/ML (ATIVAN) VIAL IVP PRN ×2 (03:19→17:43)
[2021-03-03 05:48] LABS: BASOPHILS % (AUTO) 0 % (0-10); EOSINOPHILS % (AUTO) 1 % (0-10); HEMATOCRIT 37 % (35-52); HEMOGLOBIN 11.3 g/dL (11.5-16.0); LYMPHOCYTES # (AUTO) 2.1 10^3/uL (1.0-4.0); LYMPHOCYTES % (AUTO) 28 % (12-44); MEAN CORPUSCULAR HEMOGLOBIN 27 pg (25-34); MEAN CORPUSCULAR HGB CONC 30 g/dL (32-36); MEAN CORPUSCULAR VOLUME 87 fL (80-99); MEAN PLATELET VOLUME 9.6 fL (9.0-12.2); MONOCYTES # (AUTO) 0.3 10^3/uL (0.0-1.0); MONOCYTES % (AUTO) 5 % (0-12); NEUTROPHILS # (AUTO) 4.8 10^3/uL (1.8-7.8); NEUTROPHILS % (AUTO) 66 % (42-75); PLATELET COUNT 521 10^3/uL (130-400); WHITE BLOOD COUNT 7.3 10^3/uL (4.3-11.0)
--- NOTE | 2021-03-03 06:41 | Progress Note - Hospitalist ---
Subjective HPI/CC On Admission Date Seen by Provider: March 03, 2021 Time Seen by Provider: 11:00 This is a 60-year-old white female with a history of chronic methamphetamine use who presented to the emergency room with increased shortness of breath. I was in her room this morning she began having coughing and stridor and acute shor tness of breath. Oxygen saturations were in the 70s to 80s with stridorous respirations. Racemic epinephrine was administered by RT with breathing treatment and Ativan was given for her anxiety with improvement in her oxygenation and respiratory status. Does request a DNR Subjective/Events-last exam Patient sleeps most of the time Gyrates all over the bed when really awake No seizures Takes her meds BM regimen will be started Review of Systems General: Fatigue, Malaise Focused Exam Time of Focused Exam: 18:14 Objective Exam Vital Signs Vital Signs Date Time Temp Pulse Resp B/P (MAP) Pulse Ox O2 Delivery O2 Flow Rate FiO2 03/04/21 04:00 18 03/03/21 23:20 36.2 70 133/85 (101) 91 Nasal Cannula 2.00 03/01/21 04:10 35 Capillary Refill : Less Than 3 Seconds General Appearance: Other (asleep) Respiratory: Lungs Clear Cardiovascular: Regular Rate, Rhythm Results/Procedures Lab Laboratory Tests 03/04/21 05:04 Patient resulted labs reviewed. Assessment/Plan Assessment and Plan Assess & Plan/Chief Complaint Assessment: Seizure d/o Meth use Debility CAD HTN Plan: Seizure management HTN management 02/27/21: Port placement [place]? 02/28/21: Meth withdrawal Complex issues 03/01/21: Move to floor Monitor closely 03/02/21: Supportive care 03/03/21: BM regimen Monitor closely Needs [facility]VP Critical Care Critically Ill Patient RAJAN VALDOVINOS DO March 03, 2021 06:41
[2021-03-03 06:57] LABS: ALBUMIN 3.4 GM/DL (3.2-4.5); POTASSIUM 4.9 MMOL/L (3.6-5.0)
[2021-03-03 06:58] LABS: CALCIUM 8.9 MG/DL (8.5-10.1)
[2021-03-03 06:59] LABS: TOTAL PROTEIN 7.7 GM/DL (6.4-8.2)
[2021-03-03 07:01] LABS: BILIRUBIN,TOTAL 0.2 MG/DL (0.1-1.0)
[2021-03-03 07:03] LABS: CREATININE SERUM 1.14 MG/DL (0.60-1.30)
[2021-03-03] MEDS: DIVALPROEX 250 MG DELAYED RELEASE (DEPAKOTE) TAB PO SCH ×3 (08:04→21:03)
[2021-03-03] MEDS: cloNIDine 0.2 MG (CATAPRES) TAB PO SCH ×2 (08:04→21:09)
[2021-03-03] MEDS: amLODIPine 10 MG (NORVASC) TAB PO SCH ×2 (08:04→21:03)
[2021-03-03] MEDS: FAMOTIDINE 20 MG (PEPCID) TABLET PO SCH (08:04)
[2021-03-03] MEDS: DOCUSATE SODIUM 100 MG (COLACE) CAP PO SCH ×2 (08:05→21:03)
[2021-03-03] MEDS: PHENobarbital 64.8 MG (1 GRAIN) TAb PO SCH ×2 (08:05→21:02)
[2021-03-03] MEDS: methylPREDNISolone 40 MG/ML (Solu-MEDROL) VIAL IVP SCH ×2 (08:06→21:02)
[2021-03-03] MEDS: hydrALAZINE (APRESOLINE) 25 MG TAB PO SCH ×3 (08:06→21:02)
[2021-03-03] MEDS: morphine INJ 10 MG/ML 1ML (SYR OR VIAL) IVP PRN (08:54)
--- NOTE | 2021-03-03 09:31 | Physical Therapy Progress Note ---
Therapy Progress Note Patient has been agitated and combative and is currently sleeping peacefully. PT will resume on Friday. ANURAG GENTILE PT March 03, 2021 09:31
[2021-03-03] MEDS ORDERED: SENNA W/DOCUSATE (SENOKOT S) TABLET ONE (13:02)
[2021-03-03] MEDS: SENNA W/DOCUSATE (SENOKOT S) TABLET PO SCH ×2 (13:10→21:02)
[2021-03-03 17:34] VITALS: BP 113/70
[2021-03-04] MEDS: LORazepam INJ 2 MG/ML (ATIVAN) VIAL IVP PRN ×2 (00:49→08:53)
[2021-03-04 05:12] LABS: BASOPHILS % (AUTO) 0 % (0-10); EOSINOPHILS % (AUTO) 1 % (0-10); HEMATOCRIT 37 % (35-52); HEMOGLOBIN 11.1 g/dL (11.5-16.0); LYMPHOCYTES # (AUTO) 2.2 10^3/uL (1.0-4.0); LYMPHOCYTES % (AUTO) 30 % (12-44); MEAN CORPUSCULAR HEMOGLOBIN 27 pg (25-34); MEAN CORPUSCULAR HGB CONC 30 g/dL (32-36); MEAN CORPUSCULAR VOLUME 88 fL (80-99); MEAN PLATELET VOLUME 9.7 fL (9.0-12.2); MONOCYTES # (AUTO) 0.3 10^3/uL (0.0-1.0); MONOCYTES % (AUTO) 4 % (0-12); NEUTROPHILS # (AUTO) 4.8 10^3/uL (1.8-7.8); NEUTROPHILS % (AUTO) 66 % (42-75); PLATELET COUNT 484 10^3/uL (130-400); WHITE BLOOD COUNT 7.4 10^3/uL (4.3-11.0)
[2021-03-04 05:34] LABS: ALBUMIN 3.4 GM/DL (3.2-4.5); BILIRUBIN,TOTAL 0.2 MG/DL (0.1-1.0); CALCIUM 8.4 MG/DL (8.5-10.1); CREATININE SERUM 1.16 MG/DL (0.60-1.30); TOTAL PROTEIN 7.5 GM/DL (6.4-8.2)
--- NOTE | 2021-03-04 06:35 | Progress Note - Hospitalist ---
Subjective HPI/CC On Admission Date Seen by Provider: March 04, 2021 Time Seen by Provider: 10:00 This is a 60-year-old white female with a history of chronic methamphetamine use who presented to the emergency room with increased shortness of breath. I was in her room this morning she began having coughing and stridor and acute shor tness of breath. Oxygen saturations were in the 70s to 80s with stridorous respirations. Racemic epinephrine was administered by RT with breathing treatment and Ativan was given for her anxiety with improvement in her oxygenation and respiratory status. Does request a DNR Subjective/Events-last exam Patient asleep Required Ativan Monitor closely Needs suppository Eating minimally Review of Systems General: Fatigue Focused Exam Time of Focused Exam: 18:14 Objective Exam Vital Signs Vital Signs Date Time Temp Pulse Resp B/P (MAP) Pulse Ox O2 Delivery O2 Flow Rate FiO2 03/04/21 15:39 36.0 79 18 137/72 (93) 92 Nasal Cannula 2.00 03/01/21 04:10 35 Capillary Refill : Less Than 3 Seconds General Appearance: No Apparent Distress, WD/WN, Chronically ill Respiratory: Lungs Clear Cardiovascular: Regular Rate, Rhythm Results/Procedures Lab Laboratory Tests 03/04/21 05:04 Patient resulted labs reviewed. Assessment/Plan Assessment and Plan Assess & Plan/Chief Complaint Assessment: Seizure d/o Meth use Debility CAD HTN Plan: Seizure management HTN management 02/27/21: Port placement [place]? 02/28/21: Meth withdrawal Complex issues 03/01/21: Move to floor Monitor closely 03/02/21: Supportive care 03/03/21: BM regimen Monitor closely Needs NHP 03/04/21: Needs NHP Unsure of recoverability Critical Care Critically Ill Patient RAJAN VALDOVINOS DO March 04, 2021 06:34
[2021-03-04] MEDS: RT-ALBUTEROL/IPRATROPIUM 3 ML (DUONEB) VIAL INH SCH ×2 (07:51→21:09)
[2021-03-04] MEDS: methylPREDNISolone 40 MG/ML (Solu-MEDROL) VIAL IVP SCH ×2 (08:52→21:02)
[2021-03-04] MEDS: DIVALPROEX 250 MG DELAYED RELEASE (DEPAKOTE) TAB PO SCH ×3 (08:53→21:02)
[2021-03-04] MEDS: DOCUSATE SODIUM 100 MG (COLACE) CAP PO SCH ×2 (08:53→21:03)
[2021-03-04] MEDS: FAMOTIDINE 20 MG (PEPCID) TABLET PO SCH (08:54)
[2021-03-04] MEDS: SENNA W/DOCUSATE (SENOKOT S) TABLET PO SCH ×2 (08:55→21:03)
[2021-03-04] MEDS: amLODIPine 10 MG (NORVASC) TAB PO SCH ×2 (08:55→21:02)
[2021-03-04] MEDS: hydrALAZINE (APRESOLINE) 25 MG TAB PO SCH ×3 (08:55→21:02)
[2021-03-04] MEDS: PHENobarbital 64.8 MG (1 GRAIN) TAb PO SCH ×2 (08:55→21:03)
[2021-03-04] MEDS: cloNIDine 0.2 MG (CATAPRES) TAB PO SCH ×2 (09:07→21:03)
[2021-03-04] MEDS ORDERED: BISACODYL 10 MG SUPP (DULCOLAX) PR NR (11:00)
[2021-03-05] MEDS: LORazepam INJ 2 MG/ML (ATIVAN) VIAL IVP PRN ×4 (05:10→17:02)
[2021-03-05] MEDS: RT-ALBUTEROL/IPRATROPIUM 3 ML (DUONEB) VIAL INH SCH ×2 (08:34→18:33)
[2021-03-05] MEDS: PHENobarbital 64.8 MG (1 GRAIN) TAb PO SCH ×2 (09:43→20:42)
[2021-03-05] MEDS: FAMOTIDINE 20 MG (PEPCID) TABLET PO SCH (09:43)
[2021-03-05] MEDS: DIVALPROEX 250 MG DELAYED RELEASE (DEPAKOTE) TAB PO SCH ×3 (09:43→20:41)
[2021-03-05] MEDS: amLODIPine 10 MG (NORVASC) TAB PO SCH ×2 (09:44→20:48)
[2021-03-05] MEDS: methylPREDNISolone 40 MG/ML (Solu-MEDROL) VIAL IVP SCH (09:44)
[2021-03-05] MEDS: hydrALAZINE (APRESOLINE) 25 MG TAB PO SCH ×3 (09:44→20:43)
[2021-03-05] MEDS: SENNA W/DOCUSATE (SENOKOT S) TABLET PO SCH ×2 (09:56→20:40)
[2021-03-05] MEDS: cloNIDine 0.2 MG (CATAPRES) TAB PO SCH ×2 (09:56→20:46)
[2021-03-05] MEDS: DOCUSATE SODIUM 100 MG (COLACE) CAP PO SCH ×2 (10:04→20:40)
--- NOTE | 2021-03-05 10:25 | Physical Therapy Daily Note ---
PT Daily Note-Current Subjective Patient more alert on this date. Yelling out. Sitter present. Transfers SCALE: Activities may be completed with or without assistive devices. 0-Kiqfdgckdl-cepxafo completes the activity by him/herself with no assistance from a helper. 5-Set-up or Clean-up Assistance-helper sets up or cleans up; patient completes activity. [place] assists only prior to or following the activity. 4-Supervision or Touching Assistance-helper provides verbal cues and/or touching/steadying and/or contact guard assistance as patient completes activity . Assistance may be provided throughout the activity or intermittently. 3-Partial/Moderate Assistance-helper does LESS THAN HALF the effort. [place] lifts, holds or supports trunk or limbs, but provides less than half the effort. 2-Substantial/Maximal Assistance-helper does MORE THAN HALF the effort. [place] lifts or holds trunk or limbs and provides more than half the effort. 1-Davehtltk-efmxyu does ALL the effort. Patient does none of the effort to complete the activity. Or, the assistance of 2 or more helpers is required for the patient to complete the activity. If activity was not attempted, code reason: 7-Patient Refused. 9-Not Applicable-not attempted and the patient did not perform the activity before the current illness, exacerbation or injury. 10-Not Attempted due to Environmental Limitations-(lack of equipment, weather restraints, etc.). 88-Not Attempted due to Medical Conditions or Safety Concerns. Lying to Sitting/Side of Bed(Q: 6 Sit to Stand (QC): 3 Chair/Tyw-wb-Mbpti Xfer(QC): 3 dyskinesia Gait Training Does the Patient Walk?: Yes Distance: 150' Walk 10 feet (QC): 2 Walk 50 ft with 2 Turns(QC): 2 Walk 150 ft (QC): 2 Gait Assistive Device: FWW unsteady/PT advanced FWW Assessment Patient improved with gross motor skills. Noted dyskinesia with all mobility. Patient up in recliner with live sitter present. PT Customer Records Division Supervisor Goals Fpc Goals PT Customer Records Division Supervisor Goals Time Frame: Mar 17, 2021 Roll Left & Right (QC): 4 Sit to Lying (QC): 4 Lying-Sitting on Side/Bed(QC): 4 Sit to Stand (QC): 4 Chair/Anh-jl-Lpczh Xfer(QC): 4 Toilet Transfer (QC): 4 Does the Patient Walk: Yes Walk 10 feet (QC): 3 Walk 50ft with 2 Turns (QC): 3 Walk 150 ft (QC): 3 PT Plan Treatment/Plan Treatment Plan: Continue Plan of Care Treatment Plan: Bed Mobility, Education, Functional Activity Bernie, Functional Strength, Gait, Safety, Therapeutic Exercise, Transfers Treatment Duration: Mar 17, 2021 Frequency: 6 times per week Estimated Hrs Per Day: .25 hour per day Time/GCodes Time In: 915 Time Out: 927 Total Billed Treatment Time: 12 Total Billed Treatment 1 visit GT 12 min ANURAG GENTILE PT March 05, 2021 10:25
[2021-03-05 11:20] VITALS: BP 136/81
--- NOTE | 2021-03-05 11:38 | Occ Therapy Progress Note ---
Therapy Progress Note Pt is currently sleeping and resting peacefully, she has been agitated and combative. OT will attempt again this afternoon. SHAD MOJICA OT March 05, 2021 11:38
--- NOTE | 2021-03-05 14:46 | Occupational Ther Daily Note ---
OT Current Status-Daily Note Subjective Pt laying in bed, aide present. ADL-Treatment Therapy Code Descriptions/Definitions Functional [place] Measure: 0=Not Assessed/NA 4=Minimal Assistance 1=Total Assistance 5=Supervision or Setup 2=Maximal Assistance 6=Modified [place] 3=Moderate Assistance 7=Complete IndependenceSCALE: Activities may be completed with or without assistive devices. 8-Lehwbfrzhe-xtpjifk completes the activity by him/herself with no assistance from a helper. 5-Set-up or Clean-up Assistance-helper sets up or cleans up; patient completes activity. [place] assists only prior to or following the activity. 4-Supervision or Touching Assistance-helper provides verbal cues and/or touching/steadying and/or contact guard assistance as patient completes activity. Assistance may be provided throughout the activity or intermittently. 3-Partial/Moderate Assistance-helper does LESS THAN HALF the effort. [place] lifts, holds or supports trunk or limbs, but provides less than half the effort. 2-Substantial/Maximal Assistance-helper does MORE THAN HALF the effort. [place] lifts or holds trunk or limbs and provides more than half the effort. 1-Uzgwyrtaj-hbmydv does ALL the effort. Patient does none of the effort to complete the activity. Or, the assistance of 2 or more helpers is required for the patient to complete the activity. If activity was not attempted, code reason: 7-Patient Refused. 9-Not Applicable-not attempted and the patient did not perform the activity bef ore the current illness, exacerbation or injury. 10-Not Attempted due to Environmental Limitations-(lack of equipment, weather r estraints, etc.). 88-Not Attempted due to Medical Conditions or Safety Concerns. Other Treatment Pt in bed, pulled self forward into seated position. Pt nodded in agreement when OT asked pt if she wanted to comb her hair. OT removed hair tie, and handed pt hair brush. Pt instructed to comb her hair, but pt did not initiate movement. OT dependently combed pt's hair and pulled back into a braid. Pt seated upright, then closed her eyes and started to lean back towards the bed. OT provided CGA to pt and asked pt if she was falling asleep, pt laughed in response. Pt again closed her eyes and leaned back, lowering herself to the pillows. OT provided pt with warm washcloth, instructing pt to wash her face. Pt washed her face with SBA. Post tx, pt laying in bed, call light in reach and all needs met, sitter present. Education OT Patient Education: Correct positioning, Modified ADL techniques, Progress toward Goal/Update tx plan, Purpose of tx/functional activities Teaching Recipient: Patient Teaching Methods: Discussion Response to Teaching: Reinforcement Needed OT Director [employer] Goals [facility] Goals Time Frame: Mar 16, 2021 Eating (QC): 6 Oral Hygiene (QC): 6 Toileting Hygiene (QC): 4 Shower/Bathe Self (QC): 4 Upper Body Dressing (QC): 5 Lower Body Dressing (QC): 4 On/Off Footwear (QC): 4 Additional Goals: 1-Demonstrate ADL Tasks, 2-Verbalize Understanding, 3- ImproveStrength/Bernie 1=Demonstrate adherence to instructed precautions during ADL tasks. 2=Patient will verbalize/demonstrate understanding of assistive devices/modifications for ADL. 3=Patient will improve strength/tolerance for activity to enable patient to perform ADL's. OT Education/Plan Problem List/Assessment Assessment: Decreased Activ Tolerance, Decreased Safety Aware, Decreased UE Strength, Impaired Cognition, Impaired Coordination, Impaired Funct Balance, Impaired I ADL's, Impaired Self-Care Skills Discharge Recommendations Plan/Recommendations: Continue POC Treatment Plan/Plan of Care Patient would benefit from OT for education, treatment and training to promote independence in ADL's, mobility, safety and/or upper extremity function for ADL's. Plan of Care: ADL Retraining, Functional Mobility, UE Funct Exercise/Act Treatment Duration: Mar 16, 2021 Frequency: 5 times per week Estimated Hrs Per Day: .25 hour per day Rehab Potential: Guarded Time/GCodes Start Time: 14:20 Stop Time: 14:30 Total Time Billed (hr/min): 10 Billed Treatment Time 1, ADL SHAD MOJICA OT March 05, 2021 14:46
[2021-03-05 16:39] VITALS: BP 124/70
--- NOTE | 2021-03-05 17:26 | Progress Note ---
Subjective Subjective/Events-last exam Sitting in chair, but nearly falling out and crying over and over "please let me go home", but is not able to walk stably from chair to bed, requires 2 person assist and walker. Focused Exam Time of Focused Exam: 18:14 Objective Exam Last Set of Vital Signs Vital Signs Date Time Temp Pulse Resp B/P (MAP) Pulse Ox O2 Delivery O2 Flow Rate FiO2 03/05/21 16:39 36.1 80 18 124/70 (88) 95 Room Air 03/05/21 08:42 1.00 03/01/21 04:10 35 Capillary Refill : Less Than 3 Seconds I&O Intake and Output 03/05/21 00:00 Intake Total 750 ml Output Total 1375 ml Balance -625 ml Intake Oral 750 ml Output Urine Total 1375 ml # Bowel Movements 2 General: Alert, Mild Distress Lungs: Clear to Auscultation Heart: Regular Rate Psych/Mental Status: Other (repetitively crying to go home, doesn't answer other questions) Results/Procedures Lab Microbiology 02/24/21 MRSA Screen - Final, Complete MRSA not isolated 02/24/21 Blood Culture - Final, Complete No growth Assessment/Plan Assessment/Plan (1) Seizure disorder Status: Chronic Assessment & Plan: Resumed home medications. (2) Pneumonia Status: Resolved Assessment & Plan: Completed treatment with cefepime, no consolidation on CXR, cultures with no growth. Qualifiers: Qualified Codes: J18.9 - Pneumonia, unspecified organism (3) Hypertension Status: Chronic Assessment & Plan: Continued home medications. Qualifiers: Qualified Codes: I10 - Essential (primary) hypertension (4) Nonischemic cardiomyopathy Status: Chronic (5) COPD (chronic obstructive pulmonary disease) Status: Chronic Assessment & Plan: Will change solumedrol to PO prednisone, is off of supplemental oxygen. Qualifiers: Qualified Codes: J44.1 - Chronic obstructive pulmonary disease with (acute) exacerbation (6) Acute dystonic reaction due to drugs Status: Acute Assessment & Plan: Given benztropine in ER, improved. (7) Methamphetamine dependence, continuous Status: Chronic (8) Acute on chronic respiratory failure with hypoxemia Status: Acute Assessment & Plan: Acute episode resolved, not requiring supplemental oxygen at time of my exam. (9) Altered mental status Status: Acute Assessment & Plan: Agitated and impulsive, would expect methamphetamine withdrawal to be improved at this time, uncertain baseline and recovery prognosis, will taper steroids and monitor closely. (10) DVT prophylaxis Status: Acute Assessment & Plan: Enoxaparin MATTHEW DAVID MD March 05, 2021 17:26
[2021-03-05 20:00] VITALS: BP 152/75
[2021-03-05] MEDS: cloNIDine 0.1 MG (CATAPRES) TAB PO PRN ×2 (20:43→20:44)
[2021-03-06] VITALS (7 sets, daily range): BP systolic 115–148; BP diastolic 72–87
[2021-03-06] MEDS: LORazepam INJ 2 MG/ML (ATIVAN) VIAL IVP PRN ×3 (00:46→08:37)
[2021-03-06] MEDS: predniSONE 20 MG TAB PO SCH (05:32)
[2021-03-06 06:00] LABS: HEMATOCRIT 38 % (35-52); HEMOGLOBIN 11.3 g/dL (11.5-16.0); MEAN CORPUSCULAR HEMOGLOBIN 27 pg (25-34); MEAN CORPUSCULAR HGB CONC 30 g/dL (32-36); MEAN CORPUSCULAR VOLUME 88 fL (80-99); MEAN PLATELET VOLUME 10.1 fL (9.0-12.2); PLATELET COUNT 449 10^3/uL (130-400); WHITE BLOOD COUNT 7.9 10^3/uL (4.3-11.0)
[2021-03-06 06:21] LABS: POTASSIUM 4.8 MMOL/L (3.6-5.0)
[2021-03-06 06:22] LABS: CALCIUM 8.8 MG/DL (8.5-10.1)
[2021-03-06 06:26] LABS: CREATININE SERUM 1.19 MG/DL (0.60-1.30)
[2021-03-06] MEDS: RT-ALBUTEROL/IPRATROPIUM 3 ML (DUONEB) VIAL INH SCH ×2 (08:19→21:00)
[2021-03-06] MEDS: PHENobarbital 64.8 MG (1 GRAIN) TAb PO SCH ×2 (08:47→20:05)
[2021-03-06] MEDS: amLODIPine 10 MG (NORVASC) TAB PO SCH ×2 (08:47→20:06)
[2021-03-06] MEDS: SENNA W/DOCUSATE (SENOKOT S) TABLET PO SCH ×2 (08:47→20:05)
[2021-03-06] MEDS: cloNIDine 0.1 MG (CATAPRES) TAB PO PRN ×2 (08:48→20:05)
[2021-03-06] MEDS: DOCUSATE SODIUM 100 MG (COLACE) CAP PO SCH ×2 (08:48→20:13)
[2021-03-06] MEDS: DIVALPROEX 250 MG DELAYED RELEASE (DEPAKOTE) TAB PO SCH ×3 (08:48→20:05)
[2021-03-06] MEDS: FAMOTIDINE 20 MG (PEPCID) TABLET PO SCH (08:48)
[2021-03-06] MEDS: hydrALAZINE (APRESOLINE) 25 MG TAB PO SCH ×3 (08:49→20:06)
[2021-03-06] MEDS: cloNIDine 0.2 MG (CATAPRES) TAB PO SCH ×2 (09:00→20:07)
--- NOTE | 2021-03-06 09:43 | Physical Therapy Daily Note ---
PT Daily Note-Current Subjective Patient is in bed with alarm activated and live sitter present. Patient is very agreeable to participate with therapy. Mental Status Patient Orientation: Confused Transfers SCALE: Activities may be completed with or without assistive devices. 2-Yfwbslauzy-anpdoap completes the activity by him/herself with no assistance from a helper. 5-Set-up or Clean-up Assistance-helper sets up or cleans up; patient completes activity. [place] assists only prior to or following the activity. 4-Supervision or Touching Assistance-helper provides verbal cues and/or touching/steadying and/or contact guard assistance as patient completes ac tivity. Assistance may be provided throughout the activity or intermittently. 3-Partial/Moderate Assistance-helper does LESS THAN HALF the effort. [place] lifts, holds or supports trunk or limbs, but provides less than half the effort. 2-Substantial/Maximal Assistance-helper does MORE THAN HALF the effort. [place] lifts or holds trunk or limbs and provides more than half the effort. 1-Xqpqremfx-tipyvb does ALL the effort. Patient does none of the effort to complete the activity. Or, the assistance of 2 or more helpers is required for the patient to complete the activity. If activity was not attempted, code reason: 7-Patient Refused. 9-Not Applicable-not attempted and the patient did not perform the activity before the current illness, exacerbation or injury. 10-Not Attempted due to Environmental Limitations-(lack of equipment, weather restraints, etc.). 88-Not Attempted due to Medical Conditions or Safety Concerns. Lying to Sitting/Side of Bed(Q: 6 Sit to Stand (QC): 3 Gait Training Does the Patient Walk?: Yes Distance: 250' Walk 10 feet (QC): 3 Walk 50 ft with 2 Turns(QC): 3 Walk 150 ft (QC): 3 Gait Assistive Device: FWW extended UE's with FWW use and step to gait sequence. patient does fatigue with distance Assessment Patient returned to bed with 4 rails up and alarm activated. Nursing present. Improve functional mobility on this date. PT Longterm Goals Fitter Helper Goals PT Longterm Goals Time Frame: Mar 17, 2021 Roll Left & Right (QC): 4 Sit to Lying (QC): 4 Lying-Sitting on Side/Bed(QC): 4 Sit to Stand (QC): 4 Chair/Jhm-bf-Dbqaf Xfer(QC): 4 Toilet Transfer (QC): 4 Does the Patient Walk: Yes Walk 10 feet (QC): 3 Walk 50ft with 2 Turns (QC): 3 Walk 150 ft (QC): 3 PT Plan Treatment/Plan Treatment Plan: Continue Plan of Care Treatment Plan: Bed Mobility, Education, Functional Activity Bernie, Functional Strength, Gait, Safety, Therapeutic Exercise, Transfers Treatment Duration: Mar 17, 2021 Frequency: 6 times per week Estimated Hrs Per Day: .25 hour per day Time/GCodes Time In: 842 Time Out: 854 Total Billed Treatment Time: 12 Total Billed Treatment 1 visit GT 12 min ANURAG GENTILE PT March 06, 2021 09:43
--- NOTE | 2021-03-06 10:16 | Occupational Ther Daily Note ---
OT Current Status-Daily Note Subjective Pt's 1:1 notified of OT entry, agrees to tx stating pt desires a biscuit. Pt alert in bed upon entry, agrees to tx. Does not states pain, emotionally labile through tx. ADL-Treatment Therapy Code Descriptions/Definitions Functional [place] Measure: 0=Not Assessed/NA 4=Minimal Assistance 1=Total Assistance 5=Supervision or Setup 2=Maximal Assistance 6=Modified [place] 3=Moderate Assistance 7=Complete IndependenceSCALE: Activities may be completed with or without assistive devices. 8-Naodyhunrv-kjemfll completes the activity by him/herself with no assistance from a helper. 5-Set-up or Clean-up Assistance-helper sets up or cleans up; patient completes activity. [place] assists only prior to or following the activity. 4-Supervision or Touching Assistance-helper provides verbal cues and/or touching/steadying and/or contact guard assistance as patient completes activity. Assistance may be provided throughout the activity or intermittently. 3-Partial/Moderate Assistance-helper does LESS THAN HALF the effort. [place] lifts, holds or supports trunk or limbs, but provides less than half the effort. 2-Substantial/Maximal Assistance-helper does MORE THAN HALF the effort. [place] lifts or holds trunk or limbs and provides more than half the effort. 4-Trrosuswb-tothaq does ALL the effort. Patient does none of the effort to complete the activity. Or, the assistance of 2 or more helpers is required for the patient to complete the activity. If activity was not attempted, code reason: 7-Patient Refused. 9-Not Applicable-not attempted and the patient did not perform the activity before the current illness, exacerbation or injury. 10-Not Attempted due to Environmental Limitations-(lack of equipment, weather restraints, etc.). 88-Not Attempted due to Medical Conditions or Safety Concerns. Oral Hygiene (QC): 7 Shower/Bathe Self (QC): 7 Toileting Hygiene (QC): 7 Other Treatment Pt denies ADLs. Sits on EOB with decreased time, increased impulsivity. Pt is encouraged to slow down/ stay EOB. Stands with walker, ambulates with increased guidance to chair, motivated by biscuit. Pt sits in chair, LEs elevated. Pt's 1:1 denies OT need of chair alarm as she is watching pt. Pt and OT call for biscuit, pt able to state she likes grape jelly. Pt becomes tearful during call, then very happy/ smiling end of session. Pt left in chair with all needs met, call light in reach, pt's 1:1 watching from window. Education OT Patient Education: Correct positioning, Safety issues, Transfer techniques Teaching Recipient: Patient Teaching Methods: Demonstration, Discussion Response to Teaching: Unable to Comprehend, Reinforcement Needed OT Group Home Goals [employer] Director Goals Time Frame: Mar 16, 2021 Eating (QC): 6 Oral Hygiene (QC): 6 Toileting Hygiene (QC): 4 Shower/Bathe Self (QC): 4 Upper Body Dressing (QC): 5 Lower Body Dressing (QC): 4 On/Off Footwear (QC): 4 Additional Goals: 1-Demonstrate ADL Tasks, 2-Verbalize Understanding, 3- ImproveStrength/Bernie 1=Demonstrate adherence to instructed precautions during ADL tasks. 2=Patient will verbalize/demonstrate understanding of assistive de vices/modifications for ADL. 3=Patient will improve strength/tolerance for activity to enable patient to perform ADL's. OT Education/Plan Problem List/Assessment Assessment: Decreased Activ Tolerance, Decreased Safety Aware, Dependent Transfers, Impaired Cognition, Impaired Funct Balance, Impaired I ADL's, Impaired Self-Care Skills Discharge Recommendations Plan/Recommendations: Continue POC Therapy Discharge Recommendati: 24 Hour Supervision, Post Acute OT Treatment Plan/Plan of Care Treatment,Training & Education: Yes Patient would benefit from OT for education, treatment and training to promote independence in ADL's, mobility, safety and/or upper extremity function for ADL's. Plan of Care: ADL Retraining, Functional Mobility, UE Funct Exercise/Act Treatment Duration: Mar 16, 2021 Frequency: 5 times per week Estimated Hrs Per Day: .25 hour per day Rehab Potential: Guarded Time/GCodes Start Time: 09:09 Stop Time: 09:20 Total Time Billed (hr/min): 11 Billed Treatment Time 1, ADL (11) NUPUR VILLARREAL OTR March 06, 2021 10:16
--- NOTE | 2021-03-06 12:58 | Progress Note ---
Subjective Subjective/Events-last exam Afebrile, on room air. Continues to call out and repeat herself over and over, stating she wants to go home and she is excited that her son called her. Rocking back and forth in chair, does not make eye contact. Focused Exam Time of Focused Exam: 18:14 Objective Exam Last Set of Vital Signs Vital Signs Date Time Temp Pulse Resp B/P (MAP) Pulse Ox O2 Delivery O2 Flow Rate FiO2 03/06/21 11:40 36.6 82 18 138/87 (104) 95 Room Air 03/05/21 21:30 1.00 03/01/21 04:10 35 Capillary Refill : Less Than 3 Seconds I&O Intake and Output 03/06/21 00:00 Intake Total 2257 ml Output Total 2075 ml Balance 182 ml Intake Oral 2257 ml Output Urine Total 2075 ml General: Alert, No Acute Distress Lungs: Clear to Auscultation Heart: Regular Rate Psych/Mental Status: Other (repetetive, answers questions but perseverating on going home and doesn't answer all questions) Results/Procedures Lab Laboratory Tests 03/06/21 05:45: White Blood Count 7.9, Red Blood Count 4.27, Hemoglobin 11.3L, Hematocrit 38, Mean Corpuscular Volume 88, Mean Corpuscular Hemoglobin 27, Mean Corpuscular Hemoglobin Concent 30L, Red Cell Distribution Width 15.9H, Platelet Count 449H, Mean Platelet Volume 10.1, Sodium Level 141, Potassium Level 4.8, Chloride Level 102, Carbon Dioxide Level 30, Anion Gap 9, Blood Urea Nitrogen 30H, Creatinine 1.19, Estimat Glomerular Filtration Rate 46, BUN/Creatinine Ratio 25, Glucose Level 130H, Calcium Level 8.8 Microbiology 02/24/21 MRSA Screen - Final, Complete MRSA not isolated 02/24/21 Blood Culture - Final, Complete No growth Assessment/Plan Assessment/Plan (1) Seizure disorder Status: Chronic Assessment & Plan: Resumed home medications. No seizure activity in over 48 hours. (2) Pneumonia Status: Resolved Assessment & Plan: Completed treatment with cefepime, no consolidation on CXR, cultures with no growth. Qualifiers: Qualified Codes: J18.9 - Pneumonia, unspecified organism (3) Hypertension Status: Chronic Assessment & Plan: Continued home medications. Qualifiers: Qualified Codes: I10 - Essential (primary) hypertension (4) Nonischemic cardiomyopathy Status: Chronic (5) COPD (chronic obstructive pulmonary disease) Status: Chronic Assessment & Plan: Will change solumedrol to PO prednisone, is off of supplemental oxygen. Completing prednisone taper Qualifiers: Qualified Codes: J44.1 - Chronic obstructive pulmonary disease with (acute) exacerbation (6) Acute dystonic reaction due to drugs Status: Acute Assessment & Plan: Given benztropine in ER, improved, has not required repeated doses. (7) Methamphetamine dependence, continuous Status: Chronic (8) Acute on chronic respiratory failure with hypoxemia Status: Acute Assessment & Plan: Acute episode resolved, not requiring supplemental oxygen at time of my exam. (9) Altered mental status Status: Acute Assessment & Plan: Agitated and impulsive, would expect methamphetamine withdrawal to be improved at this time, uncertain baseline and recovery prognosis, will taper steroids and monitor closely. 03/06 per staff with prior knowledge of patient, she does have rocking movements and at times bizarre behavior at baseline, working on nursing facility placement currently. (10) DVT prophylaxis Status: Acute Assessment & Plan: Enoxaparin MATTHEW DAVID MD March 06, 2021 12:58
[2021-03-06] MEDS: polyethylene glycoL POWDER 17 GM (MIRALAX) PACK PO SCH ×2 (14:40→20:14)
[2021-03-07] VITALS: BP 163/87
[2021-03-07 04:32] VITALS: BP 145/87
[2021-03-07] MEDS: RT-ALBUTEROL/IPRATROPIUM 3 ML (DUONEB) VIAL INH SCH ×2 (06:29→18:42)
[2021-03-07] MEDS: LORazepam INJ 2 MG/ML (ATIVAN) VIAL IVP PRN ×3 (06:46→14:49)
[2021-03-07 07:45] VITALS: BP 142/82
[2021-03-07] MEDS: DIVALPROEX 250 MG DELAYED RELEASE (DEPAKOTE) TAB PO SCH ×3 (08:04→20:03)
[2021-03-07] MEDS: cloNIDine 0.2 MG (CATAPRES) TAB PO SCH ×2 (08:04→20:06)
[2021-03-07] MEDS: hydrALAZINE (APRESOLINE) 25 MG TAB PO SCH ×3 (08:04→20:07)
[2021-03-07] MEDS: PHENobarbital 64.8 MG (1 GRAIN) TAb PO SCH ×2 (08:04→20:02)
[2021-03-07] MEDS: amLODIPine 10 MG (NORVASC) TAB PO SCH ×2 (08:05→20:03)
[2021-03-07] MEDS: polyethylene glycoL POWDER 17 GM (MIRALAX) PACK PO SCH ×2 (08:05→20:04)
[2021-03-07] MEDS: SENNA W/DOCUSATE (SENOKOT S) TABLET PO SCH ×2 (08:05→20:03)
[2021-03-07] MEDS: predniSONE 20 MG TAB PO SCH (08:05)
[2021-03-07] MEDS: FAMOTIDINE 20 MG (PEPCID) TABLET PO SCH (08:05)
[2021-03-07] MEDS: DOCUSATE SODIUM 100 MG (COLACE) CAP PO SCH ×2 (09:24→20:03)
--- NOTE | 2021-03-07 11:04 | Physical Therapy Daily Note ---
PT Daily Note-Current Subjective Patient in bed pre tx, agrees to PT, doesn't seem to voice any concerns of pain but she is very hard to understand. Patient seems excited to get out of bed. Appearance Patient in bed post tx with nurse call, phone, tray, all needs met. Bed alarm on. Mental Status Patient Orientation: Person, Confused, Unable to Assess, [place] Transfers SCALE: Activities may be completed with or without assistive devices. 4-Jqpbsawzfm-ycjjsul completes the activity by him/herself with no assistance from a helper. 5-Set-up or Clean-up Assistance-helper sets up or cleans up; patient completes activity. [place] assists only prior to or following the activity. 4-Supervision or Touching Assistance-helper provides verbal cues and/or touching/steadying and/or contact guard assistance as patient completes activity. Assistance may be provided throughout the activity or intermittently. 3-Partial/Moderate Assistance-helper does LESS THAN HALF the effort. [place] lifts, holds or supports trunk or limbs, but provides less than half the effort. 2-Substantial/Maximal Assistance-helper does MORE THAN HALF the effort. [place] lifts or holds trunk or limbs and provides more than half the effort. 8-Zuazdpoxu-sjrdxx does ALL the effort. Patient does none of the effort to complete the activity. Or, the assistance of 2 or more helpers is required for the patient to complete the activity. If activity was not attempted, code reason: 7-Patient Refused. 9-Not Applicable-not attempted and the patient did not perform the activity before the current illness, exacerbation or injury. 10-Not Attempted due to Environmental Limitations-(lack of equipment, weather restraints, etc.). 88-Not Attempted due to Medical Conditions or Safety Concerns. Roll Left & Right (QC): 6 Lying to Sitting/Side of Bed(Q: 3 Sit to Stand (QC): 3 Chair/Lcz-qi-Egfqr Xfer(QC): 3 Gait Training Distance: 160' Walk 10 feet (QC): 3 Walk 50 ft with 2 Turns(QC): 3 Walk 150 ft (QC): 3 Gait Assistive Device: FWW mod assist, patient is ataxic, needs assist guiding walker, assist with maintaining balance Treatments bed mobility and transfers, ambulation Assessment Current Status: Poor Progress Patient is extremely impulsive. When ambulating back to her room she has increasing need of assist for balance and walker guiding, patient gets about 5 feet from her bed and she stops, we get a chair behind her to sit but she is able to make a couple of side steps toward the foot of the bed and sit, then she immediately closes her eyes and falls straight backward, needing PT assist to keep her from hitting the bedrail on the other side of the bed, we sit her back up, she is non-responsive, and swaying aggressively back and forth, she does respond to a sternal rub, nurse comes in and we get her laid down and scooted up. Nurse states that she was medicated about half an hour ago and this could be from that. After laying down and getting up in bed patient opens her eyes and says she is tired, rolls on her side and appears to immediately go to sleep. PT Director Of Education And Training Goals Nursing Home Goals PT Director Of Education And Training Goals Time Frame: Mar 17, 2021 Roll Left & Right (QC): 4 Sit to Lying (QC): 4 Lying-Sitting on Side/Bed(QC): 4 Sit to Stand (QC): 4 Chair/Kmi-ok-Xjhik Xfer(QC): 4 Toilet Transfer (QC): 4 Does the Patient Walk: Yes Walk 10 feet (QC): 3 Walk 50ft with 2 Turns (QC): 3 Walk 150 ft (QC): 3 PT Plan Problem List Problem List: Activity Tolerance, Functional Strength, Safety, Balance, Gait, Transfer, Bed Mobility, ROM Treatment/Plan Treatment Plan: Continue Plan of Care Treatment Plan: Bed Mobility, Education, Functional Activity Bernie, Functional Strength, Gait, Safety, Therapeutic Exercise, Transfers Treatment Duration: Mar 17, 2021 Frequency: 6 times per week Estimated Hrs Per Day: .25 hour per day Safety Risks/Education Patient Education: Gait Training, Transfer Techniques, Correct Positioning, Safety Issues Teaching Recipient: Patient Teaching Methods: Demonstration, Discussion Response to Teaching: Reinforcement Needed Time/GCodes Time In: 1013 Time Out: 1030 Total Billed Treatment Time: 17 Total Billed Treatment 1 visit FA 17 VALENTINE WHITE PT March 07, 2021 11:04
[2021-03-07 12:00] VITALS: BP 134/84
--- NOTE | 2021-03-07 12:40 | Occupational Ther Daily Note ---
OT Current Status-Daily Note Subjective Pt alert, sitting up in bed. Pt agrees to therapy. Pt unintelligible and requires multiple verbalizations to be understandable. Mental Status/Objective Patient Orientation: Person, Place, Time Attachments: IV ADL-Treatment Initially pt was using hands to eat lunch instead of utensils. Pt also was being impulsive and taking multiple bites without swallowing in between. When given utensil, pt used gross grasp to spear food and place in mouth. After therapy, pt lying in bed with call light/phone in reach. All needs met in room. Therapy Code Descriptions/Definitions Functional [place] Measure: 0=Not Assessed/NA 4=Minimal Assistance 1=Total Assistance 5=Supervision or Setup 2=Maximal Assistance 6=Modified [place] 3=Moderate Assistance 7=Complete IndependenceSCALE: Activities may be completed with or without assistive devices. 0-Ysuralabkw-cjxdzag completes the activity by him/herself with no assistance from a helper. 5-Set-up or Clean-up Assistance-helper sets up or cleans up; patient completes activity. [place] assists only prior to or following the activity. 4-Supervision or Touching Assistance-helper provides verbal cues and/or touching/steadying and/or contact guard assistance as patient completes activity. Assistance may be provided throughout the activity or intermittently. 3-Partial/Moderate Assistance-helper does LESS THAN HALF the effort. [place] lifts, holds or supports trunk or limbs, but provides less than half the effort. 2-Substantial/Maximal Assistance-helper does MORE THAN HALF the effort. [place] lifts or holds trunk or limbs and provides more than half the effort. 0-Wgozwexlw-igqmhc does ALL the effort. Patient does none of the effort to complete the activity. Or, the assistance of 2 or more helpers is required for the patient to complete the activity. If activity was not attempted, code reason: 7-Patient Refused. 9-Not Applicable-not attempted and the patient did not perform the activity before the current illness, exacerbation or injury. 10-Not Attempted due to Environmental Limitations-(lack of equipment, weather restraints, etc.). 88-Not Attempted due to Medical Conditions or Safety Concerns. Eating (QC): 5 OT Fullerette Goals Intermediate Goals Time Frame: Mar 16, 2021 Eating (QC): 6 Oral Hygiene (QC): 6 Toileting Hygiene (QC): 4 Shower/Bathe Self (QC): 4 Upper Body Dressing (QC): 5 Lower Body Dressing (QC): 4 On/Off Footwear (QC): 4 Additional Goals: 1-Demonstrate ADL Tasks, 2-Verbalize Understanding, 3- ImproveStrength/Bernie 1=Demonstrate adherence to instructed precautions during ADL tasks. 2=Patient will verbalize/demonstrate understanding of assistive devices/modifications for ADL. 3=Patient will improve strength/tolerance for activity to enable patient to perform ADL's. OT Education/Plan Problem List/Assessment Assessment: Decreased Activ Tolerance, Decreased Safety Aware, Impaired Self- Care Skills Discharge Recommendations Plan/Recommendations: Continue POC Treatment Plan/Plan of Care Patient would benefit from OT for education, treatment and training to promote independence in ADL's, mobility, safety and/or upper extremity function for ADL's. Plan of Care: ADL Retraining, Functional Mobility, UE Funct Exercise/Act Treatment Duration: Mar 16, 2021 Frequency: 5 times per week Estimated Hrs Per Day: .25 hour per day Rehab Potential: Guarded Time/GCodes Start Time: 11:30 Stop Time: 11:48 Total Time Billed (hr/min): 18 Billed Treatment Time 1 visit-FA 1 (18 min) TIFFANY ROBLES March 07, 2021 12:40
[2021-03-07 15:14] VITALS: BP 137/70
--- NOTE | 2021-03-07 15:44 | Progress Note ---
Subjective Subjective/Events-last exam Afebrile, is wanting to go home. DPOA/family want her to go home as well and not to facility. Still not walking well with PT. Focused Exam Time of Focused Exam: 18:14 Objective Exam Last Set of Vital Signs Vital Signs Date Time Temp Pulse Resp B/P (MAP) Pulse Ox O2 Delivery O2 Flow Rate FiO2 03/07/21 15:14 36.9 85 22 137/70 (92) 93 Room Air 03/06/21 16:15 21 03/05/21 21:30 1.00 Capillary Refill : Less Than 3 Seconds I&O Intake and Output 03/07/21 00:00 Intake Total 1330 ml Output Total 1550 ml Balance -220 ml Intake Oral 1330 ml Output Urine Total 1550 ml # Bowel Movements 2 General: Alert Lungs: Clear to Auscultation, Normal Air Movement Heart: Regular Rate, No Murmurs Extremities: No Edema Neuro: Other (loud, repetitive speech) Results/Procedures Lab Microbiology 02/24/21 MRSA Screen - Final, Complete MRSA not isolated 02/24/21 Blood Culture - Final, Complete No growth Assessment/Plan Assessment/Plan (1) Seizure disorder Status: Chronic Assessment & Plan: Resumed home medications. No seizure activity overnight. (2) Pneumonia Status: Resolved Assessment & Plan: Completed treatment with cefepime, no consolidation on CXR, cultures with no growth. Qualifiers: Qualified Codes: J18.9 - Pneumonia, unspecified organism (3) Hypertension Status: Chronic Assessment & Plan: Continued home medications. Qualifiers: Qualified Codes: I10 - Essential (primary) hypertension (4) Nonischemic cardiomyopathy Status: Chronic (5) COPD (chronic obstructive pulmonary disease) Status: Chronic Assessment & Plan: Will change solumedrol to PO prednisone, is off of supplemental oxygen. Completing prednisone taper Qualifiers: Qualified Codes: J44.1 - Chronic obstructive pulmonary disease with (acute) exacerbation (6) Acute dystonic reaction due to drugs Status: Acute Assessment & Plan: Given benztropine in ER, improved, has not required repeated doses. (7) Methamphetamine dependence, continuous Status: Chronic (8) Acute on chronic respiratory failure with hypoxemia Status: Acute Assessment & Plan: Acute episode resolved, not requiring supplemental oxygen at time of my exam. (9) Altered mental status Status: Chronic Assessment & Plan: Agitated and impulsive, would expect methamphetamine withdrawal to be improved at this time, uncertain baseline and recovery prognosis, will taper steroids and monitor closely. 03/06 per staff with prior knowledge of patient, she does have rocking movements and at times bizarre behavior at baseline, working on nursing facility placement currently. 03/07- patient does seem to be near baseline, her DPOA and caregivers want her to go home, they are not able to pick her up today. (10) DVT prophylaxis Status: Acute Assessment & Plan: Enoxaparin MATTHEW DAVID MD March 07, 2021 15:44
[2021-03-07 19:33] VITALS: BP 122/61
[2021-03-08 00:28] VITALS: BP 131/86
[2021-03-08 03:37] VITALS: BP 132/88
[2021-03-08] MEDS: RT-ALBUTEROL/IPRATROPIUM 3 ML (DUONEB) VIAL INH SCH (06:52)
[2021-03-08 07:20] VITALS: BP 140/88
[2021-03-08] MEDS ORDERED: RT-ALBUINH IH (07:53)
[2021-03-08] MEDS: FAMOTIDINE 20 MG (PEPCID) TABLET PO SCH (08:00)
[2021-03-08] MEDS: hydrALAZINE (APRESOLINE) 25 MG TAB PO SCH ×2 (08:00→12:16)
[2021-03-08] MEDS: DOCUSATE SODIUM 100 MG (COLACE) CAP PO SCH (08:00)
[2021-03-08] MEDS: cloNIDine 0.2 MG (CATAPRES) TAB PO SCH (08:00)
[2021-03-08] MEDS: amLODIPine 10 MG (NORVASC) TAB PO SCH (08:00)
[2021-03-08] MEDS: polyethylene glycoL POWDER 17 GM (MIRALAX) PACK PO SCH (08:00)
[2021-03-08] MEDS: DIVALPROEX 250 MG DELAYED RELEASE (DEPAKOTE) TAB PO SCH ×2 (08:00→12:16)
[2021-03-08] MEDS: SENNA W/DOCUSATE (SENOKOT S) TABLET PO SCH (08:00)
[2021-03-08] MEDS: predniSONE 20 MG TAB PO SCH (08:00)
[2021-03-08] MEDS: PHENobarbital 64.8 MG (1 GRAIN) TAb PO SCH (09:29)
[2021-03-08 11:53] VITALS: BP 115/62
[2021-03-08 13:45] VITALS: BP 115/62
== END 2021-03-08 13:45 | disposition home or self-care (01) | DRG 853 ==
LOC: EDUNIT# 15:43 → ER 15:44 → ICU 18:15 → 4TH 03-01 15:09
PROVIDERS: ADMIT Internal Medicine; ATTEND Family Medicine
PROC: 02HV33Z Insertion of Infusion Device into Superior Vena Cava, Percutaneous Approach (ICD-10-PCS; 2021-02-27)
PROC: 0JPT03Z Removal of Infusion Device from Trunk Subcutaneous Tissue and Fascia, Open Approach (ICD-10-PCS; 2021-02-27)
PROC: 02PY33Z Removal of Infusion Device from Great Vessel, Percutaneous Approach (ICD-10-PCS; 2021-02-27)
PROC: 0JH60WZ Insertion of Totally Implantable Vascular Access Device into Chest Subcutaneous Tissue and Fascia, Open Approach (ICD-10-PCS; principal; 2021-02-27 12:25)
DX: A41.9 Sepsis, unspecified organism (principal); J18.9 Pneumonia, unspecified organism; J96.21 Acute and chronic respiratory failure with hypoxia; I42.9 Cardiomyopathy, unspecified; I13.0 Hypertensive heart and chronic kidney disease with heart failure and stage 1 through stage 4 chronic kidney disease, or unspecified chronic kidney disease; G24.09 Other drug induced dystonia; F15.20 Other stimulant dependence, uncomplicated; J44.0 Chronic obstructive pulmonary disease with (acute) lower respiratory infection; T82.534A Leakage of infusion catheter, initial encounter; E87.1 Hypo-osmolality and hyponatremia; F15.23 Other stimulant dependence with withdrawal; J44.1 Chronic obstructive pulmonary disease with (acute) exacerbation; Z66 Do not resuscitate; N18.9 Chronic kidney disease, unspecified; I50.9 Heart failure, unspecified; B19.20 Unspecified viral hepatitis C without hepatic coma; E86.0 Dehydration; N28.9 Disorder of kidney and ureter, unspecified; E87.5 Hyperkalemia; Z99.81 Dependence on supplemental oxygen; D63.8 Anemia in other chronic diseases classified elsewhere; F41.9 Anxiety disorder, unspecified; F31.9 Bipolar disorder, unspecified; G40.909 Epilepsy, unspecified, not intractable, without status epilepticus; I25.10 Atherosclerotic heart disease of native coronary artery without angina pectoris; E11.22 Type 2 diabetes mellitus with diabetic chronic kidney disease; F17.210 Nicotine dependence, cigarettes, uncomplicated; Z91.19 Patient's noncompliance with other medical treatment and regimen; I25.2 Old myocardial infarction; Z87.820 Personal history of traumatic brain injury; Z85.41 Personal history of malignant neoplasm of cervix uteri; Z79.2 Long term (current) use of antibiotics; Z83.3 Family history of diabetes mellitus; Z82.49 Family history of ischemic heart disease and other diseases of the circulatory system
CPT/HCPCS: 36415; 36600; 71045; 76000; 80048; 80053; 80306; 81000; 82805; 82947; 83605; 83735; 83880; 84100; 85007; 85025; 85027; 86141; 86703; 86803; 87040; 87081; 94640; 94760; 96361; 96365; 96372; 96375

== ENCOUNTER 2021-03-10 13:40 | Emergency (ER) | payer MEDICAID ==
[~2021-03-10] VITALS: Ht 162 cm; Wt 73.4 kg
[~2021-03-10 13:40] MED LIST changes: +DIVA250T2 PO
[2021-03-10 13:50] VITALS: BP 142/92
--- NOTE | 2021-03-10 14:00 | ED General ---
General Stated Complaint: L ARM WEAKNESS, CANT SEE Source of Information: Patient Exam Limitations: No Limitations History of Present Illness Date Seen by Provider: March 10, 2021 Time Seen by Provider: 13:53 Initial Comments To ER with reports of inability to see out of the right eye and inability to move the right arm. This began after she awakened from a nap this afternoon. She was fine when going to sleep this afternoon. She is not sure what time she woke up. Timing/Duration: 4-6 Hours Severity: Moderate Allergies and Home Medications Allergies Coded Allergies: nitrous oxide (Verified Allergy, Unknown, 06/08/07) Home Medications Acetaminophen 500 Mg Tablet, 1,000 MG PO Q6H PRN for PAIN-MILD, (Reported) Albuterol Sulfate 1 Puff Puff, 2 PUFF IH Q4H PRN for SHORTNESS OF BREATH 1 PUFF = 90 MCG Prescribed by: MATTHEW DAVID on 03/08/21 0753 Amlodipine Besylate 10 Mg Tablet, 5 MG PO BID, (Reported) TAKES OF A 10MG TAB Carvedilol 25 Mg Tab, 25 MG PO BID, (Reported) Divalproex Sodium 250 Mg Tablet.dr, 250 MG PO TID, (Reported) Famotidine 20 Mg Tablet, 20 MG PO BID, (Reported) Hydralazine HCl 100 Mg Tablet, 100 MG PO TID, (Reported) Levetiracetam 500 Mg Tablet, 1,000 MG PO BID, (Reported) TAKES 2 (500MG) TABS Phenobarbital 64.8 Mg Tablet, 129.6 MG PO BID, (Reported) TAKES 2 (64.8MG) TABS TO EQUAL 129.6 Patient Home Medication List Home Medication List Reviewed: Yes Review of Systems Review of Systems Constitutional: see HPI EENTM: see HPI Respiratory: no symptoms reported Cardiovascular: no symptoms reported Genitourinary: no symptoms reported Musculoskeletal: no symptoms reported Skin: no symptoms reported Psychiatric/Neurological: No Symptoms Reported Hematologic/Lymphatic: No Symptoms Reported Immunological/Allergic: no symptoms reported Past Abigeqi-Mmradf-Vldxpw Hx Patient Social History Drug of Choice: + IV METH USE, THC USE Type Used: Cigarettes 2nd Hand Smoke Exposure: No Recent Hopitalizations: No Immunizations Up To Date Tetanus Booster (TDap): Less than 5yrs PED Vaccines UTD: No Date of Pneumonia Vaccine: Jul 13, 2012 Date of Influenza Vaccine: Jul 27, 2020 Seasonal Allergies Seasonal Allergies: No Past Medical History Surgeries: Yes (SEE BELOW) Abdominal, Adenoidectomy, Cardiac, Section, Hysterectomy, Oophorectomy, Renal, Tonsillectomy Respiratory: Yes (SUPPOSED TO BE ON O2 AT 2 1/2-3L/NC AT HS & PRN;HX OF RESP FAILURE W/INTUBA) COPD Currently Using CPAP: No Currently Using BIPAP: No Cardiac: Yes Cardiomyopathy, Coronary Artery Disease, Endocarditis, Heart Attack, Hypertension, Peripheral Vascular, Valvular Heart Disease Neurological: Yes Concussion, Seizure Disorder, Stroke, Traumatic Brain Injury 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 Disorders: No 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, Menopausal Sexually Transmitted Disease: No HIV/AIDS: No Genitourinary: Yes Kidney Infection, Bladder Infection, Kidney Stones, Renal Failure, UTI-Chronic Gastrointestinal: Yes Abdominal Hernia, Gastroesophageal Reflux, Pancreatitis, Hepatitis Musculoskeletal: Yes (CHRONIC NECK AND BACK PAIN; POOR AMBULATION) Arthritis, Chronic Back Pain Endocrine: Yes (HGB AIC WAS 6.5 ON 12/23/18) Diabetes, Non-Insulin dep HEENT: Yes (POOR DENTITION) Loss of Vision: Denies Hearing Impairment: Denies Cancer: Yes Cervical Did You Recieve Any Treatments: Yes What Type of Treatment Did You: Surgical Intervention Psychosocial: Yes (POLYSUBSTANCE ABUSE) Anxiety, Bipolar, Depression Integumentary: No Blood Disorders: Yes (ANEMIA OF CHRONIC DISEASE) Adverse Reaction/Blood Tranf: No Family Medical History Abdominal aortic aneurysm 03 FATHER Alcoholism 03 FATHER 03 MOTHER 09 SISTER 09 SISTER Cancer 03 FATHER Cataract 03 FATHER 03 MOTHER Chest pain 03 MOTHER Family history: Diabetes mellitus 03 MOTHER Family history: Hypertension 03 MOTHER Family history: Thyroid disorder 03 MOTHER Headache 09 SISTER Heart disease 03 MOTHER History of drug abuse 03 FATHER 09 SISTER Myocardial infarction 03 MOTHER No Family History of: Fabius's disease Aphasia Cancer of colon Congenital heart disease Congestive heart failure Cystic fibrosis Dementia Dysphagia Family history: Allergy Family history: Alzheimer's disease Family history: Arthritis Family history: Asthma Family history: Breast disease Family history: Cardiovascular disease Family history: Coronary thrombosis Family history: Gastrointestinal disease Family history: Glaucoma Family history: Osteoporosis Hearing loss Hereditary disease History of - anemia History of - disorder History of - respiratory disease Human immunodeficiency virus (HIV) seropositivity Hypercholesterolemia Infertile Kidney disease Malignant neoplasm of lung Parkinson's disease Prostate cancer Psychotic disorder Seizure disorder Stroke Tuberculosis Visual impairment AAA, Heart Disease, Diabetes -SOCIAL HISTORY: -ETOH -OCCASIONAL USE -DRUGS-EXTENSIVE HISTORY OF IV METH USE, THC USE -SMOKES AT LEAST 1 PPD PAST SURGICAL HISTORY: -MULTIPLE CENTRAL LINES/PICC LINES -PORT LEFT CHEST PRESENT 07/29/20 -DIAGNOSTIC LAPAROSCOPY/LAPAROTOMY -MULTIPLE CYSTOSCOPIES WITH RIGHT URETERAL STENT PLACED AND LATER REMOVED -I&D OF ABSCESSES -MULTIPLE CARDIAC CATHS--NO INTERVENTION -HYSTERECTOMY WITH LATER BILATERAL SALPINGO-OOPHORECTOMY -UMBILICAL HERNIA REPAIR WITH MESH -BILATERAL MYRINGOTOMY TUBES -BLADDER SUSPENSION -MULTIPLE LEFT LEG SURGERIES DUE TO TRAUMA A CHILD -EGD -LEFT MASTOIDECTOMY NOTED ON CT 08/26/19--PT UNAWARE OF THIS PAST MEDICAL HISTORY: -HAS BEEN INTUBATED FOR RESPIRATORY FAILURE--LAST TIME WAS 08/26/19 -SUPPOSED TO BE ON O2 AT HS AT 2 1/2-3L/NC AND PRN. -NON-ISCHEMIC CARDIOMYOPATHY -HAS HAD EXTERNAL DEFIBRILLATOR IN PAST -CHRONIC CHEST PAIN COMPLAINTS, WITH ELEVATED TROPONIN MULTIPLE TIMES AND DX WITH NSTEMI 02/2018--LAST CARDIAC CATH 02/2018--SHOWED MILD CAD/NO INTERVENTION LAST LEXISCAN STRESS TEST WAS NORMAL 07/12/19. LAST ECHOCARDIOGRAM 08/20/19--NON-ISCHEMIC CARDIOMYOPATHY WITH EF 55-65% -MITRAL REGURGITATION -TRICUSPID VALVE VEGETATIONS 2013 -CHF -MULTIPLE CARDIAC CATHS-NO INTERVENTION -POOR VENOUS ACCESS -TRAUMATIC BRAIN INJURY CHILD; -CVA WITH LEFT SIDED WEAKNESS -POOR BALANCE--IS SUPPOSED TO USE A WALKER -MULTIPLE EPISODES OF "ALTERED MENTAL STATUS" -MULTIPLE HEAD INJURIES DUE TO REPORTED DOMESTIC ABUSE -CHRONIC RENAL FAILURE--NO DIALYSIS -CHRONIC ABDOMINAL PAIN COMPLAINTS; -GASTRITIS -HEPATITIS C--NO TREATMENT -CHRONIC NECK AND BACK PAIN; POOR AMBULATION -ANEMIA OF CHRONIC DISEASE -LONG HISTORY OF NON-COMPLIANCE IN ALL ASPECTS OF CARE Physical Exam Vital Signs Vital Signs - First Documented Capillary Refill : Height, Weight, BMI Height: 5'3.00" Weight: 155lbs. 8.0oz. [id number]; 28.65 BMI Method:Stated General Appearance: No Apparent Distress, WD/WN, Chronically ill (Appears much older than stated age. She is hemodynamically stable with a heart rate of 83 si nus without ectopy blood pressure 142/92.), Other (Arm is flaccid. She has reduced sensation in the right arm and right leg. The right leg has some of her dense gravity. There is ataxia in the left arm left leg and right leg.) Eyes: Bilateral Eye Normal Inspection, Bilateral Eye PERRL, Bilateral Eye EOMI HEENT: PERRL/EOMI, TMs Normal Neck: Full Range of Motion, Normal Inspection Respiratory: Lungs Clear, Normal Breath Sounds, No Accessory Muscle Use, No Respiratory Distress Cardiovascular: Regular Rate, Rhythm, Normal Peripheral Pulses Gastrointestinal: Normal Bowel Sounds, Non Tender, Soft Extremity: Normal Capillary Refill, Normal Inspection Neurologic/Psychiatric: Alert, Oriented x3 Skin: Normal Color, Warm/Dry Procedures/Interventions Date of ETT Placement: Sep 17, 2019 Time of ETT Placement: 1745 Progress/Results/Core Measures Suspected Sepsis SIRS Temperature: Pulse: Respiratory Rate: Laboratory Tests 03/10/21 14:00: White Blood Count 9.0 Blood Pressure / Mean: Laboratory Tests 03/10/21 14:00: Creatinine 1.05, Platelet Count 372, Total Bilirubin 0.1 Results/Orders Lab Results Laboratory Tests Test 03/10/21 14:00 03/10/21 16:18 Range/Units White Blood Count 9.0 4.3-11.0 10^3/uL Red Blood Count 4.01 3.80-5.11 10^6/uL Hemoglobin 10.7 L 11.5-16.0 g/dL Hematocrit 36 35-52 % Mean Corpuscular Volume 89 80-99 fL Mean Corpuscular Hemoglobin 27 25-34 pg Mean Corpuscular Hemoglobin Concent 30 L 32-36 g/dL Red Cell Distribution Width 15.9 H 10.0-14.5 % Platelet Count 372 130-400 10^3/uL Mean Platelet Volume 10.6 9.0-12.2 fL Immature Granulocyte % (Auto) 0 % Neutrophils (%) (Auto) 55 42-75 % Lymphocytes (%) (Auto) 31 12-44 % Monocytes (%) (Auto) 7 0-12 % Eosinophils (%) (Auto) 5 0-10 % Basophils (%) (Auto) 1 0-10 % Neutrophils # (Auto) 5.0 1.8-7.8 10^3/uL Lymphocytes # (Auto) 2.8 1.0-4.0 10^3/uL Monocytes # (Auto) 0.7 0.0-1.0 10^3/uL Eosinophils # (Auto) 0.4 H 0.0-0.3 10^3/uL Basophils # (Auto) 0.1 0.0-0.1 10^3/uL Immature Granulocyte # (Auto) 0.0 0.0-0.1 10^3/uL D-Dimer 0.75 H 0.00-0.49 UG/ML Sodium Level 141 135-145 MMOL/L Potassium Level 4.7 3.6-5.0 MMOL/L Chloride Level 103 98-107 MMOL/L Carbon Dioxide Level 25 21-32 MMOL/L Anion Gap 13 5-14 MMOL/L Blood Urea Nitrogen 35 H 7-18 MG/DL Creatinine 1.05 0.60-1.30 MG/DL Estimat Glomerular Filtration Rate 53 BUN/Creatinine Ratio 33 Glucose Level 85 70-105 MG/DL Calcium Level 8.5 8.5-10.1 MG/DL Corrected Calcium 8.8 8.5-10.1 MG/DL Total Bilirubin 0.1 0.1-1.0 MG/DL Aspartate Amino Transf (AST/SGOT) 16 5-34 U/L Alanine Aminotransferase (ALT/SGPT) 22 0-55 U/L Alkaline Phosphatase 82 40-136 U/L Total Protein 7.2 6.4-8.2 GM/DL Albumin 3.6 3.2-4.5 GM/DL Serum Alcohol < 10 <10 MG/DL Urine Color YELLOW Urine Clarity CLEAR Urine pH 7.0 5-9 Urine Specific [place] 1.010 L 1.016-1.022 Urine Protein NEGATIVE NEGATIVE Urine Glucose (UA) NEGATIVE NEGATIVE Urine Ketones NEGATIVE NEGATIVE Urine Nitrite NEGATIVE NEGATIVE Urine Bilirubin NEGATIVE NEGATIVE Urine Urobilinogen 0.2 < = 1.0 MG/DL Urine Leukocyte Esterase TRACE H NEGATIVE Urine RBC (Auto) NEGATIVE NEGATIVE Urine RBC NONE /HPF Urine WBC NONE /HPF Urine Crystals NONE /LPF Urine Bacteria NEGATIVE /HPF Urine Casts NONE /LPF Urine Mucus NEGATIVE /LPF Urine Culture Indicated NO Urine Opiates Screen NEGATIVE NEGATIVE Urine Oxycodone Screen NEGATIVE NEGATIVE Urine Methadone Screen NEGATIVE NEGATIVE Urine Propoxyphene Screen NEGATIVE NEGATIVE Urine Barbiturates Screen POSITIVE H NEGATIVE Ur Tricyclic Antidepressants Screen NEGATIVE NEGATIVE Urine Phencyclidine Screen NEGATIVE NEGATIVE Urine Amphetamines Screen NEGATIVE NEGATIVE Urine Methamphetamines Screen NEGATIVE NEGATIVE Urine Benzodiazepines Screen NEGATIVE NEGATIVE Urine Cocaine Screen NEGATIVE NEGATIVE Urine Cannabinoids Screen NEGATIVE NEGATIVE My Orders Orders - NEERAJ VILLA APRN Cbc With Automated Diff (03/10/21 13:42) Comprehensive Metabolic Panel (03/10/21 13:42) Ua Culture If Indicated (03/10/21 13:42) Drug Screen Stat (Urine) (03/10/21 13:42) Alcohol (03/10/21 13:42) Ct Head Wo (03/10/21 13:42) Ekg Tracing (03/10/21 13:42) Ed Iv/Invasive Line Start (03/10/21 13:42) Ct Angio Head/Neck (03/10/21 14:05) Ns Iv 1000 Ml (Sodium Chloride 0.9%) (03/10/21 14:15) Fibrin Degradation Products (03/10/21 14:33) Iohexol Injection (Omnipaque 350 Mg/Ml 1 (03/10/21 15:00) Received Contrast (Hold Metformin- Contr (03/10/21 15:00) Ns (Ivpb) (Sodium Chloride 0.9% Ivpb Bag (03/10/21 15:00) Heparin (Central Iv Flush) (Heparin (Ger (03/10/21 16:30) Medications Given in ED Current Medications Medications Dose Ordered Sig/Tad Route Start Time Stop Time Status Last Admin Dose Admin Heparin Sodium (Porcine) 500 unit ONCE ONCE IV 03/10/21 16:30 03/10/21 16:31 DC 03/10/21 16:36 500 UNIT Iohexol 75 ml ONCE ONCE IV 03/10/21 15:00 03/10/21 15:01 DC 03/10/21 15:00 75 ML Sodium Chloride 100 ml ONCE ONCE IV 03/10/21 15:00 03/10/21 15:01 DC 03/10/21 15:00 80 ML Vital Signs/I&O 03/10/21 03/10/21 13:50 13:50 Temp 36.7 Pulse 84 84 Resp 18 18 B/P (MAP) 142/92 (109) 142/92 Pulse Ox 95 95 O2 Delivery Room Air Capillary Refill : Departure Communication (Admissions) Family Conversation NAME: KEREN MAX [facility] REC#: [id number] PT STATUS: REG ER : 1960 PHYSICIAN: NEERAJ VILLA APRN ADMIT DATE: 03/10/21/ER Draft Date of Exam:03/10/21 CT ANGIO HEAD/NECK PROCEDURE: CT angiography of the head and CT angiography of the neck with and without contrast. TECHNIQUE: Contiguous noncontrast images were obtained from the skull base through the vertex. After intravenous contrast administration, helical CT angiography of the neck was performed. Source data was reformatted into 3D MIP projections. Delayed post contrast acquisition was also obtained. Auto Exposure Controls were utilized during the CT exam to meet ALARA standards for radiation dose reduction. INDICATION: Weakness. COMPARISON: There is no prior CTA head and neck examination available for comparison. The CT head exam performed earlier today at 2:35 PM failed to show any sign of an acute intracranial abnormality. On this exam, there is no evidence for a large vessel occlusion of the intracranial circulation. There is no sign of an aneurysm of the [place] of [place] either. The images through the neck do suggest that there is a focal bandlike 70-80% stenosis of the origin of the internal carotid artery on the right. There is also some calcified plaque in this area. There is no hemodynamically significant stenosis of the left carotid system. Both vertebral arteries were opacified and appear codominant. There is no mass or adenopathy involving the neck. The thyroid gland is generally unremarkable. The lung apices are generally clear. The bone windows are unremarkable for a fracture or for a destructive lesion. IMPRESSION: 1. There is no evidence for a large vessel occlusion of the intracranial circulation. There is no sign of an aneurysm either. However, if clinical concern regarding an acute abnormality persists, then MRI would be recommended for further study. 2. There does appear to be a bandlike 70-80% percent stenosis of the origin of the internal carotid artery on the right. There is no hemodynamically significant stenosis of the left carotid system. The vertebral arteries are codominant. Dictated on workstation # [id number] Dict: 03/10/21 1535 Trans: 03/10/21 1545 [facility] [id number] Interpreted by: TEENA HANLEY MD Electronically signed by: [id number]-Difficult to assess. She states she cannot see out of the right eye but she keeps that eye squinted closed against resistance. She states that she cannot open it but when I tried to open it she keeps it closed against my fingers. When she is distracted by talking about some other topic she opens the right eye. When I cover her left eye she is able to tell me how many fingers are open with her right eye. Right eye has a normal appearance. Pupils reactive. There is no facial asymmetry. She is able to smile and wrinkle her forehead on both sides. 1550-Sleeping. Arousable to verbal stimuli. Moves all extremities. 1615-continues to move all extremities, states that she has to go to the bathroom. I helped walk her to the door of her room before getting into a wheelchair. She walks using me as a walker, I provided standby assistance. She is alert oriented moves all extremities without numbness or weakness of the right arm. She would like to have her sister called to come pick her up and take her home. Given her extensive seizure history it is entirely likely that this could represent a Nabil's paralysis as she was rather postictal upon arrival. Her mentation has improved since getting here and her neurologic deficits have resolved. Impression Primary Impression: transient right arm weakness Disposition: 01 HOME, SELF-CARE Condition: Stable Departure-Patient Inst. Decision time for Depature: 16:53 Referrals: [facility] (PCP/Family) Primary Care Physician Patient Instructions: Seizures, Adult (DC) NIH Stroke Scale NIH Stroke Scale NIH : Select: Initial Level of Consciousness: 0=Alert Level of Consciousness-Questio: 0=Answers both month/age LOC Commands: 1=Performs one task Gaze: 0=Normal (when i close her Left eye she is able to identify how many fingers I am holding up using the right eye) Visual Perez: 0=No visual loss Facial Movement (Facial Paresi: 0=Normal symmetrical mnt Motor Function-Arms Right: 4=No movement Motor Function-Arms Left: 0=No drift Motor Function-Legs Right: 2=Some effort/gravity Motor Function-Legs Left: 0=No drift Limb Ataxia: 2=Present in two limbs Sensory: 1=Mild to Moderate loss Dysarthria: 0=Normal Extinction & Inattention: 0=No abnormality NIH Stroke Scale Score: 10 NEERAJ VILLA APRN March 10, 2021 13:59
[2021-03-10 14:11] LABS: BASOPHILS # (AUTO) 0.1 10^3/uL (0.0-0.1); BASOPHILS % (AUTO) 1 % (0-10); EOSINOPHILS # (AUTO) 0.4 10^3/uL (0.0-0.3); EOSINOPHILS % (AUTO) 5 % (0-10); HEMATOCRIT 36 % (35-52); HEMOGLOBIN 10.7 g/dL (11.5-16.0); LYMPHOCYTES # (AUTO) 2.8 10^3/uL (1.0-4.0); LYMPHOCYTES % (AUTO) 31 % (12-44); MEAN CORPUSCULAR HEMOGLOBIN 27 pg (25-34); MEAN CORPUSCULAR HGB CONC 30 g/dL (32-36); MEAN CORPUSCULAR VOLUME 89 fL (80-99); MEAN PLATELET VOLUME 10.6 fL (9.0-12.2); MONOCYTES # (AUTO) 0.7 10^3/uL (0.0-1.0); MONOCYTES % (AUTO) 7 % (0-12); NEUTROPHILS % (AUTO) 55 % (42-75); PLATELET COUNT 372 10^3/uL (130-400)
[2021-03-10] MEDS ORDERED: NS IV 1000 ML 1,000 ML IV SCH (14:15)
[2021-03-10 14:21] LABS: ALBUMIN 3.6 GM/DL (3.2-4.5); CHLORIDE 103 MMOL/L (98-107); POTASSIUM 4.7 MMOL/L (3.6-5.0); SODIUM 141 MMOL/L (135-145)
[2021-03-10 14:23] LABS: CALCIUM 8.5 MG/DL (8.5-10.1)
[2021-03-10 14:24] LABS: GLUCOSE 85 MG/DL (70-105); TOTAL PROTEIN 7.2 GM/DL (6.4-8.2)
[2021-03-10 14:25] LABS: BILIRUBIN,TOTAL 0.1 MG/DL (0.1-1.0); CARBON DIOXIDE 25 MMOL/L (21-32)
[2021-03-10 14:27] LABS: ALKALINE PHOSPHATASE 82 U/L (40-136); CREATININE SERUM 1.05 MG/DL (0.60-1.30); GFR ESTIMATED 53
[2021-03-10 14:28] LABS: BUN/CREATININE RATIO 33
[2021-03-10 14:30] LABS: ALANINE AMINOTRANSFERASE 22 U/L (0-55)
[2021-03-10] MEDS ORDERED: HOLD METFORMIN - RECEIVED CONTRAST 20 ML VIAL IV SCH (15:00)
[2021-03-10] MEDS ORDERED: IOHEXOL 350 MG/ML 100 ML (OMNIPAQUE 350) VIAL IV ONE (15:00)
[2021-03-10] MEDS ORDERED: NS 100 ML (IVPB) BAG IV ONE (15:00)
--- NOTE | 2021-03-10 15:01 | Diagnostic Imaging Report ---
INDICATION: Weakness. EXAMINATION: CT brain without contrast, 03/10/2021. FINDINGS: There is no hemorrhage or infarct. No mass, mass effect or midline shift. No hydrocephalus. Calvarium is intact. Paranasal sinuses and mastoid air cells are clear. IMPRESSION: No acute intracranial process. Dictated by: Dictated on workstation # [id number]
--- NOTE | 2021-03-10 15:46 | Diagnostic Imaging Report ---
PROCEDURE: CT angiography of the head and CT angiography of the neck with and without contrast. TECHNIQUE: Contiguous noncontrast images were obtained from the skull base through the vertex. After intravenous contrast administration, helical CT angiography of the neck was performed. Source data was reformatted into 3D MIP projections. Delayed post contrast acquisition was also obtained. Auto Exposure Controls were utilized during the CT exam to meet ALARA standards for radiation dose reduction. INDICATION: Weakness. COMPARISON: There is no prior CTA head and neck examination available for comparison. The CT head exam performed earlier today at 2:35 PM failed to show any sign of an acute intracranial abnormality. On this exam, there is no evidence for a large vessel occlusion of the intracranial circulation. There is no sign of an aneurysm of the [place] of [place] either. The images through the neck do suggest that there is a focal bandlike 70-80% stenosis of the origin of the internal carotid artery on the right. There is also some calcified plaque in this area. There is no hemodynamically significant stenosis of the left carotid system. Both vertebral arteries were opacified and appear codominant. There is no mass or adenopathy involving the neck. The thyroid gland is generally unremarkable. The lung apices are generally clear. The bone windows are unremarkable for a fracture or for a destructive lesion. IMPRESSION: 1. There is no evidence for a large vessel occlusion of the intracranial circulation. There is no sign of an aneurysm either. However, if clinical concern regarding an acute abnormality persists, then MRI would be recommended for further study. 2. There does appear to be a bandlike 70-80% percent stenosis of the origin of the internal carotid artery on the right. There is no hemodynamically significant stenosis of the left carotid system. The vertebral arteries are codominant. Dictated by: Dictated on workstation # [id number]
[2021-03-10 16:26] LABS: BILIRUBIN,URINE NEGATIVE (NEGATIVE); CLARITY,URINE CLEAR; COLOR,URINE YELLOW; GLUCOSE, URINE (UA) NEGATIVE (NEGATIVE); KETONES,URINE NEGATIVE (NEGATIVE); LEUKOCYTE ESTERASE ,URINE TRACE (NEGATIVE); NITRITE,URINE NEGATIVE (NEGATIVE); PROTEIN,URINE NEGATIVE (NEGATIVE)
[2021-03-10] MEDS ORDERED: HEParin (CENTRAL IV FLUSH) 500 UNIT/5 ML SYR IV ONE (16:30)
[2021-03-10 16:42] LABS: AMPHETAMINE SCREEN, URINE NEGATIVE (NEGATIVE); BARBITURATE SCREEN URINE POSITIVE (NEGATIVE); BENZODIAZEPINES SCREEN URINE NEGATIVE (NEGATIVE); CANNABINOID SCREEN, URINE NEGATIVE (NEGATIVE); COCAINE SCREEN URINE NEGATIVE (NEGATIVE); METHADONE STAT NEGATIVE (NEGATIVE); METHAMPHETAMINE SCREEN URINE S NEGATIVE (NEGATIVE); OPIATE SCREEN URINE NEGATIVE (NEGATIVE); OXYCODONE STAT NEGATIVE (NEGATIVE); PROPOXYPHENE STAT NEGATIVE (NEGATIVE); TRICYCLIC ANTIDEPRESSANTS SCRE NEGATIVE (NEGATIVE)
[2021-03-10 16:50] LABS: BACTERIA,URINE NEGATIVE /HPF
[2021-03-10 16:58] VITALS: BP 143/101
== END 2021-03-10 16:58 | disposition home or self-care (01) ==
LOC: EDUNIT# 13:40 → ER 13:42
DX: M62.81 Muscle weakness (generalized) (principal); R20.8 Other disturbances of skin sensation; R27.0 Ataxia, unspecified; E11.9 Type 2 diabetes mellitus without complications; I11.0 Hypertensive heart disease with heart failure; I50.9 Heart failure, unspecified; I25.10 Atherosclerotic heart disease of native coronary artery without angina pectoris; J44.9 Chronic obstructive pulmonary disease, unspecified; G40.909 Epilepsy, unspecified, not intractable, without status epilepticus; F31.9 Bipolar disorder, unspecified; G89.29 Other chronic pain; M54.2 Cervicalgia; Z91.19 Patient's noncompliance with other medical treatment and regimen; Z99.81 Dependence on supplemental oxygen; Z79.899 Other long term (current) drug therapy
CPT/HCPCS: 70450; 70496; 70498; 80053; 80306; 81000; 85025; 85379; 93005; 99285; G0480; 36415; 80320

== ENCOUNTER 2021-05-24 23:36 | Inpatient (IN) | payer MEDICAID ==
[~2021-05-24] VITALS: Ht 160 cm; Wt 67.4 kg
[~2021-05-24 23:36] MED LIST changes: +ERGO1250 PO; -ERGO50006 PO; -OLAN5TAB25 PO; +OLN5T PO; -SULF1TAB35 PO
--- NOTE | 2021-05-24 23:54 | ED General ---
General Chief Complaint: General Problems/Pain Stated Complaint: METH AMPHETAMINE USE Source of Information: Patient (EXTREMELY DIFFICULT AND LIMITED HISTORIAN--PT APPEARS TO BE UNDER THE INFLUENCE OF SOME SUBSTANCE/S), EMS, Old Records (ALL PMH IS FROM OLD RECORDS) History of Present Illness Date Seen by Provider: May 24, 2021 Time Seen by Provider: 23:38 Initial Comments PT ARRIVES VIA [facility] FROM HOME IN [place] PT HAS BEEN USING METHAMPHETAMINE--LONGSTANDING IV USE, BUT ALSO SMOKES IT. ALSO LONG HISTORY OF ABUSING OTHER DRUGS WELL C/O BACK PAIN--HAS CHRONIC BACK PAIN C/O SHORTNESS OF BREATH--HAS CHRONIC SHORTNESS OF BREATH, WITH COPD AND IS ON O2 AT 4L/NC CONTINUOUSLY. PT ALSO CONTINUES TO SMOKE STATES SHE LAST USED ALBUTEROL INHALER JUST PRIOR TO ARRIVAL UNABLE TO OBTAIN ANY OTHER RELIABLE INFORMATION FROM PT DUE TO HAVING RECENTLY USED METHAMPHETAMINE PT IS COUGHING, AND MAKING CONSTANT GUTTERAL NOISES, GRUNTING, GROANING, GROWLING, THRASHING ALL OVER, AGITATED, COMBATIVE, SPEECH UNINTELLIGIBLE AT TIMES, ETC PT WITH A MULTITUDE OF VISITS, VARIOUS COMPLAINTS, MANY FOR DRUG-RELATED ISSUES, RESPIRATORY ISSUES OR SEIZURES ALSO HAS HISTORY OF CAD/MD WITH CARDIOMYOPATHY, AND HTN PT STATES SHE HAS NOT HAD COVID-19 VACCINATION PCP: [facility] Allergies and Home Medications Allergies Coded Allergies: nitrous oxide (Verified Allergy, Unknown, 06/08/07) Home Medications Acetaminophen 500 Mg Tablet, 1,000 MG PO Q6H PRN for PAIN-MILD, (Reported) Albuterol Sulfate 1 Puff Puff, 2 PUFF IH Q4H PRN for SHORTNESS OF BREATH 1 PUFF = 90 MCG Prescribed by: MATTHEW DAVID on 03/08/21 0753 Amlodipine Besylate 10 Mg Tablet, 5 MG PO BID, (Reported) TAKES OF A 10MG TAB Carvedilol 25 Mg Tab, 25 MG PO BID, (Reported) Divalproex Sodium 250 Mg Tablet.dr, 250 MG PO TID, (Reported) Famotidine 20 Mg Tablet, 20 MG PO BID, (Reported) Hydralazine HCl 100 Mg Tablet, 100 MG PO TID, (Reported) Levetiracetam 500 Mg Tablet, 1,000 MG PO BID, (Reported) TAKES 2 (500MG) TABS Phenobarbital 64.8 Mg Tablet, 129.6 MG PO BID, (Reported) TAKES 2 (64.8MG) TABS TO EQUAL 129.6 Review of Systems Review of Systems Constitutional: other (VERY LIMITED) Respiratory: see HPI Musculoskeletal: see HPI Psychiatric/Neurological: See HPI Past Ytjhbfu-Omjloq-Gwpnau Hx Patient Social History Tobacco Use?: Yes (1 PPD) Tobacco type used: Cigarettes Smoking Status: Current Everyday Smoker Substance use?: Yes Substance type: Methamphetamine, Marijuana Additional substance use comme: + IV METH USE Substance frequency: Daily Alcohol Use?: No Immunizations Up To Date Tetanus Booster (TDap): Less than 5yrs PED Vaccines UTD: No Seasonal Allergies Seasonal Allergies: No Past Medical History Surgeries: Yes (SEE BELOW) Abdominal, Adenoidectomy, Cardiac, Section, Hysterectomy, Oophorectomy, Renal, Tonsillectomy Respiratory: Yes (O2 AT 4L/NC CONTINUOUSLY;HX OF RESP FAILURE W/INTUBATION) Pneumonia, COPD Currently Using CPAP: No Currently Using BIPAP: No Cardiac: Yes Cardiomyopathy, Coronary Artery Disease, Endocarditis, Heart Attack, Hypertension, Peripheral Vascular, Valvular Heart Disease Neurological: Yes Concussion, Seizure Disorder, Stroke, Traumatic Brain Injury 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 Disorders: No 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, Menopausal Sexually Transmitted Disease: No HIV/AIDS: No Genitourinary: Yes Kidney Infection, Bladder Infection, Kidney Stones, Renal Failure, UTI-Chronic Gastrointestinal: Yes Abdominal Hernia, Gastroesophageal Reflux, Pancreatitis, Hepatitis Musculoskeletal: Yes (CHRONIC NECK AND BACK PAIN; POOR AMBULATION) Arthritis, Chronic Back Pain Endocrine: Yes (HGB AIC WAS 6.5 ON 12/23/18) Diabetes, Non-Insulin dep HEENT: Yes (POOR DENTITION) Loss of Vision: Denies Hearing Impairment: Denies Cancer: Yes Cervical Did You Recieve Any Treatments: Yes What Type of Treatment Did You: Surgical Intervention Psychosocial: Yes (POLYSUBSTANCE ABUSE) Anxiety, Bipolar, Depression Integumentary: No Blood Disorders: Yes (ANEMIA OF CHRONIC DISEASE) Adverse Reaction/Blood Tranf: No Family Medical History Abdominal aortic aneurysm 03 FATHER Alcoholism 03 FATHER 03 MOTHER 09 SISTER 09 SISTER Cancer 03 FATHER Cataract 03 FATHER 03 MOTHER Chest pain 03 MOTHER Family history: Diabetes mellitus 03 MOTHER Family history: Hypertension 03 MOTHER Family history: Thyroid disorder 03 MOTHER Headache 09 SISTER Heart disease 03 MOTHER History of drug abuse 03 FATHER 09 SISTER Myocardial infarction 03 MOTHER No Family History of: Isael's disease Aphasia Cancer of colon Congenital heart disease Congestive heart failure Cystic fibrosis Dementia Dysphagia Family history: Allergy Family history: Alzheimer's disease Family history: Arthritis Family history: Asthma Family history: Breast disease Family history: Cardiovascular disease Family history: Coronary thrombosis Family history: Gastrointestinal disease Family history: Glaucoma Family history: Osteoporosis Hearing loss Hereditary disease History of - anemia History of - disorder History of - respiratory disease Human immunodeficiency virus (HIV) seropositivity Hypercholesterolemia Infertile Kidney disease Malignant neoplasm of lung Parkinson's disease Prostate cancer Psychotic disorder Seizure disorder Stroke Tuberculosis Visual impairment AAA, Heart Disease, Diabetes -SOCIAL HISTORY: -ETOH -OCCASIONAL USE -DRUGS-EXTENSIVE HISTORY OF IV METH USE, THC USE -SMOKES AT LEAST 1 PPD PAST SURGICAL HISTORY: -MULTIPLE CENTRAL LINES/PICC LINES -PORT LEFT CHEST PRESENT 07/29/20 -DIAGNOSTIC LAPAROSCOPY/LAPAROTOMY -MULTIPLE CYSTOSCOPIES WITH RIGHT URETERAL STENT PLACED AND LATER REMOVED -I&D OF ABSCESSES -MULTIPLE CARDIAC CATHS--NO INTERVENTION -HYSTERECTOMY WITH LATER BILATERAL SALPINGO-OOPHORECTOMY -UMBILICAL HERNIA REPAIR WITH MESH -BILATERAL MYRINGOTOMY TUBES -BLADDER SUSPENSION -MULTIPLE LEFT LEG SURGERIES DUE TO TRAUMA A CHILD -EGD -LEFT MASTOIDECTOMY NOTED ON CT 08/26/19--PT UNAWARE OF THIS PAST MEDICAL HISTORY: -HAS BEEN INTUBATED FOR RESPIRATORY FAILURE--LAST TIME WAS 08/26/19 -WEARS O2 AT 4L/NC CONTINUOUSLY -NON-ISCHEMIC CARDIOMYOPATHY -HAS HAD EXTERNAL DEFIBRILLATOR IN PAST -CHRONIC CHEST PAIN COMPLAINTS, WITH ELEVATED TROPONIN MULTIPLE TIMES AND DX WITH NSTEMI 02/2018--LAST CARDIAC CATH 02/2018--SHOWED MILD CAD/NO INTERVENTION LAST LEXISCAN STRESS TEST WAS NORMAL 07/12/19. LAST ECHOCARDIOGRAM 08/20/19--NON-ISCHEMIC CARDIOMYOPATHY WITH EF 55-65% -MITRAL REGURGITATION -TRICUSPID VALVE VEGETATIONS 2013 -CHF -MULTIPLE CARDIAC CATHS-NO INTERVENTION -POOR VENOUS ACCESS -TRAUMATIC BRAIN INJURY CHILD; -CVA WITH LEFT SIDED WEAKNESS -POOR BALANCE--IS SUPPOSED TO USE A WALKER -MULTIPLE EPISODES OF "ALTERED MENTAL STATUS" -MULTIPLE HEAD INJURIES DUE TO REPORTED DOMESTIC ABUSE -CHRONIC RENAL FAILURE--NO DIALYSIS -CHRONIC ABDOMINAL PAIN COMPLAINTS; -GASTRITIS -HEPATITIS C--NO TREATMENT -CHRONIC NECK AND BACK PAIN; POOR AMBULATION -ANEMIA OF CHRONIC DISEASE -LONG HISTORY OF NON-COMPLIANCE IN ALL ASPECTS OF CARE Physical Exam Vital Signs Vital Signs - First Documented 05/24/21 23:39 Temp 37.9 Pulse 116 Resp 20 Pulse Ox 94 O2 Delivery Nasal Cannula O2 Flow Rate 4.00 Capillary Refill : Height, Weight, BMI Height: 5'3.00" Weight: 155lbs. 8.0oz. 70.552204qn; 27.00 BMI Method:Stated General Appearance: Other ( ABOVE; FILTHY, MALODOROUS, UNKEMPT, COVERED IN ANIMAL HAIR) HEENT: Other (POOR DENTITION) Respiratory: Normal Breath Sounds, Other (LEFT CENTRAL LINE IN PLACE, NO SIGNS OF INFECTION) Cardiovascular: No Murmur, Tachycardia Gastrointestinal: Soft Extremity: Pedal Edema (TRACE TO 1+ BILATERALLY), Other (EXTENSIVE SORES/SCARS/SCABS TO ARMS, CHEST, FACE) Neurologic/Psychiatric: No Motor/Sensory Deficits, Other (BEHAVIOR NOTED ABOVE) Skin: Warm/Dry Focused Exam Lactate Level 05/24/21 00:12: Lactic Acid Level 0.69 Lactic Acid Level Laboratory Tests Test 05/24/21 00:12 Lactic Acid Level 0.69 MMOL/L (0.50-2.00) Procedures/Interventions Date of ETT Placement: Sep 17, 2019 Time of ETT Placement: 1745 Progress/Results/Core Measures Suspected Sepsis SIRS Temperature: Pulse: Respiratory Rate: Laboratory Tests 05/24/21 00:12: White Blood Count 10.6 Blood Pressure / Mean: 05/24/21 00:12: Lactic Acid Level 0.69 Laboratory Tests 05/24/21 00:12: Creatinine 1.31H, Platelet Count 393, Total Bilirubin 0.4 05/24/21 01:27: INR Comment 1.0 Results/Orders Lab Results Laboratory Tests Test 05/24/21 00:12 05/24/21 00:20 05/24/21 01:27 05/24/21 23:43 Range/Units White Blood Count 10.6 4.3-11.0 10^3/uL Red Blood Count 3.58 L 3.80-5.11 10^6/uL Hemoglobin 9.2 L 11.5-16.0 g/dL Hematocrit 30 L 35-52 % Mean Corpuscular Volume 85 80-99 fL Mean Corpuscular Hemoglobin 26 25-34 pg Mean Corpuscular Hemoglobin Concent 30 L 32-36 g/dL Red Cell Distribution Width 16.0 H 10.0-14.5 % Platelet Count 393 130-400 10^3/uL Mean Platelet Volume 10.1 9.0-12.2 fL Immature Granulocyte % (Auto) 0 % Neutrophils (%) (Auto) 80 H 42-75 % Lymphocytes (%) (Auto) 12 12-44 % Monocytes (%) (Auto) 6 0-12 % Eosinophils (%) (Auto) 2 0-10 % Basophils (%) (Auto) 0 0-10 % Neutrophils # (Auto) 8.4 H 1.8-7.8 10^3/uL Lymphocytes # (Auto) 1.2 1.0-4.0 10^3/uL Monocytes # (Auto) 0.7 0.0-1.0 10^3/uL Eosinophils # (Auto) 0.2 0.0-0.3 10^3/uL Basophils # (Auto) 0.0 0.0-0.1 10^3/uL Immature Granulocyte # (Auto) 0.0 0.0-0.1 10^3/uL Sodium Level 136 135-145 MMOL/L Potassium Level 4.3 3.6-5.0 MMOL/L Chloride Level 103 98-107 MMOL/L Carbon Dioxide Level 24 21-32 MMOL/L Anion Gap 9 5-14 MMOL/L Blood Urea Nitrogen 25 H 7-18 MG/DL Creatinine 1.31 H 0.60-1.30 MG/DL Estimat Glomerular Filtration Rate 41 BUN/Creatinine Ratio 19 Glucose Level 90 70-105 MG/DL Lactic Acid Level 0.69 0.50-2.00 MMOL/L Calcium Level 8.8 8.5-10.1 MG/DL Corrected Calcium 9.4 8.5-10.1 MG/DL Magnesium Level 2.0 1.6-2.4 MG/DL Total Bilirubin 0.4 0.1-1.0 MG/DL Aspartate Amino Transf (AST/SGOT) 19 5-34 U/L Alanine Aminotransferase (ALT/SGPT) 22 0-55 U/L Alkaline Phosphatase 97 40-136 U/L Troponin I 0.074 H <0.028 NG/ML B-Type Natriuretic Peptide 861.4 H <100.0 PG/ML Total Protein 7.8 6.4-8.2 GM/DL Albumin 3.3 3.2-4.5 GM/DL Amylase Level 50 25-125 U/L Procalcitonin 0.08 <0.10 NG/ML Serum Alcohol < 10 <10 MG/DL Urine Color YELLOW Urine Clarity CLEAR Urine pH 7.0 5-9 Urine Specific [place] 1.015 L 1.016-1.022 Urine Protein 1+ H NEGATIVE Urine Glucose (UA) NEGATIVE NEGATIVE Urine Ketones NEGATIVE NEGATIVE Urine Nitrite NEGATIVE NEGATIVE Urine Bilirubin NEGATIVE NEGATIVE Urine Urobilinogen 0.2 < = 1.0 MG/DL Urine Leukocyte Esterase NEGATIVE NEGATIVE Urine RBC (Auto) NEGATIVE NEGATIVE Urine RBC NONE /HPF Urine WBC NONE /HPF Urine Crystals NONE /LPF Urine Bacteria NEGATIVE /HPF Urine Casts NONE /LPF Urine Mucus NEGATIVE /LPF Urine Culture Indicated NO Urine Opiates Screen NEGATIVE NEGATIVE Urine Oxycodone Screen NEGATIVE NEGATIVE Urine Methadone Screen NEGATIVE NEGATIVE Urine Propoxyphene Screen NEGATIVE NEGATIVE Urine Barbiturates Screen POSITIVE H NEGATIVE Ur Tricyclic Antidepressants Screen NEGATIVE NEGATIVE Urine Phencyclidine Screen NEGATIVE NEGATIVE Urine Amphetamines Screen POSITIVE H NEGATIVE Urine Methamphetamines Screen POSITIVE H NEGATIVE Urine Benzodiazepines Screen NEGATIVE NEGATIVE Urine Cocaine Screen NEGATIVE NEGATIVE Urine Cannabinoids Screen NEGATIVE NEGATIVE Prothrombin Time 13.6 12.2-14.7 SEC INR Comment 1.0 0.8-1.4 Activated Partial Thromboplast Time 38 H 24-35 SEC Influenza Type A (RT-PCR) Not Detected Not Detecte Influenza Type B (RT-PCR) Not Detected Not Detecte SARS-CoV-2 RNA (RT-PCR) Not Detected Not Detecte Test 05/25/21 00:12 Range/Units Valproic Acid (Depakene) Level 6.8 L 50.0-100.0 UG/ML My Orders Orders - HOLA BRIGHT DO Ed Iv/Invasive Line Start (05/24/21 23:41) Ekg Tracing (05/24/21 23:41) Monitor-Rhythm Ecg Trace Only (05/24/21 23:41) Amylase (05/24/21 23:41) BNP (05/24/21 23:41) Cbc With Automated Diff (05/24/21 23:41) Comprehensive Metabolic Panel (05/24/21 23:41) Drug Screen Stat (Urine) (05/24/21 23:41) Magnesium (05/24/21 23:41) Protime With Inr (05/24/21 23:41) Partial Thromboplastin Time (05/24/21 23:41) Ua Culture If Indicated (05/24/21 23:41) Troponin I (05/24/21 23:41) Covid 19 Inhouse Test (05/24/21 23:41) Influenza A And B By Pcr (05/24/21 23:41) Straight Cath For Spec.-Adult (05/24/21 23:41) Alcohol (05/24/21 23:54) Lactic Acid Analyzer (05/24/21 23:54) Procalcitonin (Pct) (05/24/21 23:54) Blood Culture (05/24/21 23:54) Chest 1 View, Ap/Pa Only (05/25/21 00:01) Lorazepam Injection (Ativan Injection) (05/25/21 01:00) Methylprednisolone Sod Succ (Solu-Medrol (05/25/21 01:00) Diphenhydramine Injection (Benadryl Inje (05/25/21 01:00) Ketorolac Injection (Toradol Injection) (05/25/21 01:00) Orphenadrine Inj (Ed Only) (Norflex Inje (05/25/21 01:00) Nitroglycerin Ointment (Nitrobid Ointme (05/25/21 01:30) Furosemide Injection (Lasix Injection) (05/25/21 01:30) Catheter(Urinary) Insert & Ass 03,15 (05/25/21 01:20) O2 (05/25/21 01:20) Valproic Acid (05/25/21 01:34) Phenobarbital (05/25/21 01:34) Ct Chest Wo (05/25/21 02:01) Hydralazine Injection (Apresoline Inject (05/25/21 02:15) Lorazepam Injection (Ativan Injection) (05/25/21 03:00) Ceftriaxone (Rocephin) (05/25/21 03:15) Azithromycin Injection (Zithromax Inject (05/25/21 03:15) Nitroglycerin Ointment (Nitrobid Ointme (05/25/21 03:15) Medications Given in ED Current Medications Medications Dose Ordered Sig/Tad Route Start Time Stop Time Status Last Admin Dose Admin Azithromycin 500 mg/Sodium Chloride 250 ml @ 250 mls/hr ONCE ONCE IV 05/25/21 03:15 05/25/21 04:14 AK 05/25/21 03:30 250 MLS/HR Ceftriaxone Sodium 1000 mg/ Sterile Water 10 ml @ 200 mls/hr ONCE ONCE IV 05/25/21 03:15 05/25/21 03:17 AK 05/25/21 03:25 200 MLS/HR Diphenhydramine HCl 50 mg ONCE ONCE IVP 05/25/21 01:00 05/25/21 01:02 AK 05/25/21 01:30 50 MG Furosemide 80 mg ONCE ONCE IVP 05/25/21 01:30 05/25/21 01:31 AK 05/25/21 02:11 80 MG Hydralazine HCl 10 mg ONCE ONCE IV 05/25/21 02:15 05/25/21 02:16 AK 05/25/21 02:11 10 MG Ketorolac Tromethamine 30 mg ONCE ONCE IVP 05/25/21 01:00 05/25/21 01:02 AK 05/25/21 01:31 30 MG Lorazepam 1 mg ONCE ONCE IVP 05/25/21 01:00 05/25/21 01:01 AK 05/25/21 01:30 1 MG Lorazepam 1 mg ONCE ONCE IVP 05/25/21 03:00 05/25/21 03:01 AK 05/25/21 02:51 1 MG Methylprednisolone Sodium Succinate 125 mg ONCE ONCE IVP 05/25/21 01:00 05/25/21 01:02 AK 05/25/21 01:31 125 MG Nitroglycerin 1 inch ONCE ONCE TOP 05/25/21 01:30 05/25/21 01:31 AK 05/25/21 01:31 1 INCH Nitroglycerin 1 inch ONCE ONCE TOP 05/25/21 03:15 05/25/21 03:16 AK 05/25/21 03:52 1 INCH Orphenadrine Citrate 60 mg ONCE ONCE IV 05/25/21 01:00 05/25/21 01:02 AK 05/25/21 01:30 60 MG Vital Signs/I&O 05/24/21 23:39 Temp 37.9 Pulse 116 Resp 20 B/P (MAP) Pulse Ox 94 O2 Delivery Nasal Cannula O2 Flow Rate 4.00 Capillary Refill : Progress Note : Progress Note PLACED IN ISOLATION ROOM PPE WORN AT ALL TIMES COVID-19 TESTING PERFORMED PT CONTINUED TO HAVE VERY DRAMATIC AND AGITATED BEHAVIOR GIVEN ATIVAN AND BENADRYL FOR AGITATION GIVEN TORADOL AND NORFLEX FOR BACK PAIN PT ABLE TO REST AFTER THESE WERE GIVEN GAVE NITROPASTE X 2" AND HYDRALAZINE FOR BLOOD PRESSURE GAVE LASIX FOR CHF GAVE SOLU-MEDROL FOR COPD GAVE ROCEPHIN AND ZITHROMAX FOR BIBASILAR INFILTRATES WHILE IN CT, BUT SUDDENLY BECAME COMBATIVE, THRASHING ALL OVER, AGITATED, AND HAVING SAME BEHAVIOR WHEN SHE ARRIVED. ADDITIONAL ATIVAN GIVEN AND PT IS SLEEPING SOUNDLY AGAIN 02 SAT REMAINED 95% ON 4L/NC PT REMAINED MILDLY TACHYCARDIC--LIKELY DUE TO METHAMPHETAMINES, IN ADDITION TO CARDIAC/RESPIRATORY ISSUES ON PREVIOUS RECORDS, PT IS NOTED TO HAVE ELEVATED TROPONIN MULTIPLE TIMES. ECG Initial ECG Impression Date: May 25, 2021 Initial ECG Impression Time: 01:40 Initial ECG Rate: 118 Diagnostic Imaging Comments CXR--BIBASILAR INFILTRATES, PENDING RADIOLOGIST REVIEW CT CHEST--BILATERAL PLEURAL EFFUSIONS--RIGHT > LEFT; NO DEFINITE FOCAL CONSOLIDATION--PER [facility] VIA FAX AT 0405 Reviewed: Reviewed by Az Departure Communication (Admissions) 0407--SPOKE WITH DR. VALDOVINOS, HOSPITALIST FOR [facility], ACCEPTS PT FOR ADMIT. 0455--CALLED E-ICU TO GIVE REPORT, THEY WILL CALL BACK [phone]--REPORT GIVEN TO E-ICU PHYSICIAN. Impression Primary Impression: Methamphetamine intoxication Additional Impressions: Methamphetamine addiction Hypertension Elevated troponin CHF (congestive heart failure) Chronic renal insufficiency COPD WITH CHRONIC REPSIRATORY FAILURE CHRONIC RESPIRATORY FAILURE WITH HYPOXIA Chronic anemia BIBASILAR INFILTRATES/PNEUMONIA Nonischemic cardiomyopathy Altered mental status Seizure disorder Disposition: ADMITTED INPATIENT Condition: Improved Admissions Decision to Admit Reason: Admit from ER (General) Decision to Admit/Date: May 25, 2021 Time/Decision to Admit Time: 04:07 Departure-Patient Inst. Referrals: [facility] [place]) Primary Care Physician HOLA BRIGHT DO May 24, 2021 23:54
[2021-05-25 00:24] LABS: BASOPHILS % (AUTO) 0 % (0-10); EOSINOPHILS # (AUTO) 0.2 10^3/uL (0.0-0.3); EOSINOPHILS % (AUTO) 2 % (0-10); HEMATOCRIT 30 % (35-52); HEMOGLOBIN 9.2 g/dL (11.5-16.0); LYMPHOCYTES # (AUTO) 1.2 10^3/uL (1.0-4.0); LYMPHOCYTES % (AUTO) 12 % (12-44); MEAN CORPUSCULAR HEMOGLOBIN 26 pg (25-34); MEAN CORPUSCULAR HGB CONC 30 g/dL (32-36); MEAN CORPUSCULAR VOLUME 85 fL (80-99); MEAN PLATELET VOLUME 10.1 fL (9.0-12.2); MONOCYTES # (AUTO) 0.7 10^3/uL (0.0-1.0); MONOCYTES % (AUTO) 6 % (0-12); NEUTROPHILS # (AUTO) 8.4 10^3/uL (1.8-7.8); NEUTROPHILS % (AUTO) 80 % (42-75); PLATELET COUNT 393 10^3/uL (130-400); WHITE BLOOD COUNT 10.6 10^3/uL (4.3-11.0)
[2021-05-25 00:31] LABS: BILIRUBIN,URINE NEGATIVE (NEGATIVE); CLARITY,URINE CLEAR; COLOR,URINE YELLOW; GLUCOSE, URINE (UA) NEGATIVE (NEGATIVE); KETONES,URINE NEGATIVE (NEGATIVE); LEUKOCYTE ESTERASE ,URINE NEGATIVE (NEGATIVE); NITRITE,URINE NEGATIVE (NEGATIVE); PROTEIN,URINE 1+ (NEGATIVE)
[2021-05-25 00:43] LABS: ALANINE AMINOTRANSFERASE 22 U/L (0-55); ALBUMIN 3.3 GM/DL (3.2-4.5); ALKALINE PHOSPHATASE 97 U/L (40-136); AMYLASE 50 U/L (25-125); BILIRUBIN,TOTAL 0.4 MG/DL (0.1-1.0); BUN/CREATININE RATIO 19; CALCIUM 8.8 MG/DL (8.5-10.1); CARBON DIOXIDE 24 MMOL/L (21-32); CHLORIDE 103 MMOL/L (98-107); CREATININE SERUM 1.31 MG/DL (0.60-1.30); GFR ESTIMATED 41; GLUCOSE 90 MG/DL (70-105); POTASSIUM 4.3 MMOL/L (3.6-5.0); SODIUM 136 MMOL/L (135-145); TOTAL PROTEIN 7.8 GM/DL (6.4-8.2)
[2021-05-25 00:57] LABS: AMPHETAMINE SCREEN, URINE POSITIVE (NEGATIVE); BACTERIA,URINE NEGATIVE /HPF; BARBITURATE SCREEN URINE POSITIVE (NEGATIVE); BENZODIAZEPINES SCREEN URINE NEGATIVE (NEGATIVE); CANNABINOID SCREEN, URINE NEGATIVE (NEGATIVE); COCAINE SCREEN URINE NEGATIVE (NEGATIVE); METHADONE STAT NEGATIVE (NEGATIVE); METHAMPHETAMINE SCREEN URINE S POSITIVE (NEGATIVE); OPIATE SCREEN URINE NEGATIVE (NEGATIVE); OXYCODONE STAT NEGATIVE (NEGATIVE); PROPOXYPHENE STAT NEGATIVE (NEGATIVE); TRICYCLIC ANTIDEPRESSANTS SCRE NEGATIVE (NEGATIVE)
[2021-05-25] MEDS ORDERED: LORazepam INJ 2 MG/ML (ATIVAN) VIAL IVP ONE ×2 (01:00→03:00)
[2021-05-25] MEDS ORDERED: ORPHENADRINE 60 MG/2 ML (NORFLEX) AMP (ED ONLY) IV ONE (01:00)
[2021-05-25] MEDS ORDERED: methylPREDNISolone 125 MG (Solu-MEDROL) VIAL IVP ONE (01:00)
[2021-05-25] MEDS ORDERED: diphenhydrAMINE 50 MG/ML INJ (BENADRYL) IVP ONE (01:00)
[2021-05-25] MEDS ORDERED: KETOROLAC 30 MG/ML VIAL IVP ONE (01:00)
[2021-05-25] MEDS ORDERED: NITROGLYCERIN 2% OINT 1 GM UNIT DOSE PACKET TOP ONE ×2 (01:30→03:15)
[2021-05-25] MEDS ORDERED: FUROSEMIDE 40 MG/4 ML INJ (LASIX) IVP ONE (01:30)
[2021-05-25 01:45] LABS: PROTHROMBIN TIME PATIENT 13.6 SEC (12.2-14.7)
[2021-05-25] MEDS ORDERED: hydrALAZINE (APESOLINE) 20 MG/ML VIAL IV ONE (02:15)
[2021-05-25] MEDS ORDERED: cefTRIAXone 1,000 MG in WATER (STERILE) FOR INJECTION 10 ML IV ONE (03:15)
[2021-05-25] MEDS ORDERED: AZITHROMYCIN INJECTION 500 MG in NS (IVPB) 250 ML IV ONE (03:15)
[2021-05-25] MEDS ORDERED: ENOXAPARIN 80 MG/0.8 ML (LOVENOX) SYR SC ONE (04:15)
[2021-05-25] MEDS ORDERED: 1/2 NS IV SOLUTION 1,000 ML IV ONE (05:12)
[2021-05-25] MEDS ORDERED: 1/2 NS IV SOLUTION 1,000 ML IV SCH (05:15)
[2021-05-25] MEDS: LORazepam INJ 2 MG/ML (ATIVAN) VIAL IVP PRN ×3 (05:42→14:27)
--- NOTE | 2021-05-25 06:31 | Diagnostic Imaging Report ---
INDICATION: Dyspnea AP view of the chest is obtained with comparison made to study of 03/01/2021. Heart size is within normal limits. There is increased prominence of pulmonary vascularity. Interstitial markings have also increased and prominence throughout the lungs bilaterally. No pneumothorax or consolidation is identified. Left anterior chest wall port remains in place. IMPRESSION: Increasing pulmonary venous congestion and interstitial density most suggestive of congestive heart failure and pulmonary edema. Component of superimposed pneumonitis is not excluded. Dictated by: Dictated on workstation # [id number]
--- NOTE | 2021-05-25 06:48 | Tele-ICU Progress Note ---
Progress Note 60F with severe IV meth dependence, COPD on 4L home O2, NICM, sz d/o, indwelling port, CKD, called EMS for unknown reasons. On arrival was markedly hypertensive at 200/120, febrile. She is not vaccinated, rapid COVID negative. C/o back pain, given toradol and norflex, also given benadryl and ativan for agitation. Ativan had to be repeated on arrival to ICU with good results. - troponemia: h/o NSTEMI, prior cardiac eval without intervention. Given empiric full dose lovenox in ER. - resp failure: given lasix 80 mg, solumedrol with improvement. Empiric abx initiated. - seizure d/o: depakote low, phenobarb send out. Seizure precautions, restart home rx. - polysub abuse: supportive care, monitor for withdrawals. - HTN urgency: currently well controlled with nitropaste and hydralazine. Focused Exam Lactate Level 05/24/21 00:12: Lactic Acid Level 0.69 Height, Weight, BMI Height: 5'3.00" Weight: 155lbs. 8.0oz. 70.487507vg; 29.00 BMI Method:Stated VIK PUENTE MD May 25, 2021 06:48
[2021-05-25 07:01] LABS: TRIGLYCERIDES 33 MG/DL (<150); VLDL CHOLESTEROL 7 MG/DL (5-40)
--- NOTE | 2021-05-25 07:03 | Diagnostic Imaging Report ---
PROCEDURE: CT chest without contrast. TECHNIQUE: Multiple contiguous axial images were obtained through the chest without the use of intravenous contrast. Auto Exposure Controls were utilized during the CT exam to meet ALARA standards for radiation dose reduction. INDICATION: Increasing dyspnea COMPARISON: 11/28/2019. Since the previous study, there has been development of mild bilateral pleural fluid. Pulmonary vascularity is mildly increased, however, no alveolar consolidation is identified. There is no significant pericardial fluid. No evidence of mediastinal or hilar adenopathy. Right renal atrophy is again noted in the visualized upper abdomen. IMPRESSION: Development of mild bilateral pleural fluid with background pulmonary venous congestion. This may be on the basis of congestive heart failure with a component of hypervolemia. Clinical correlation would be useful. Dictated by: Dictated on workstation # [id number]
[2021-05-25 07:06] LABS: CHOLESTEROL 159 MG/DL (< 200); HDL CHOLESTEROL 68 MG/DL (40-60)
[2021-05-25] MEDS: hydrALAZINE (APESOLINE) 20 MG/ML VIAL IV SCH ×4 (07:57→21:41)
[2021-05-25] MEDS ORDERED: methylPREDNISolone 125 MG (Solu-MEDROL) VIAL IVP SCH (08:00)
[2021-05-25 08:08] VITALS: BP 171/106
[2021-05-25 08:16] LABS: CREATINE KINASE MB 2.7 NG/ML (<6.6)
[2021-05-25] MEDS: ASPIRIN E.C. 81 MG (ECOTRIN) TAB PO SCH (09:24)
--- NOTE | 2021-05-25 09:42 | Diagnostic Imaging Report ---
INDICATION: Pneumonia. Methamphetamine use. Elevated troponin. Comparison with 05/25/2021. Heart is upper limits of normal. There continues to be some prominence of the pulmonary vasculature. There has been some decrease in the bilateral interstitial markings. No consolidated infiltrates have developed. No pneumothorax or pleural effusion. Left Port-A-Cath remains in good position. IMPRESSION: 1. There has been some improvement with decreasing interstitial markings and decreased prominence of pulmonary vasculature. Dictated by: Dictated on workstation # [id number]
--- NOTE | 2021-05-25 09:59 | Tele-ICU Progress Note ---
Subjective Date Seen by a Provider: May 25, 2021 Time Seen by a Provider: 09:00 Subjective/Events-last exam This virtual visit was conducted using real time audio/video. Thank you for asking us to see this patient for hypertension, Meth and Barbituate abuse. Unvaccinated. HPC: Recent events: hypertensive overnight PMH: COPD/home O2 4 LPM, CMP, CKD, Seiz. PE:Comfortable appearing.190/120 HEENT: No obvious masses, adenopathy or JVD. Chest:CTA. CV: Irreg. S1 S2 No murmur or added sounds. Abd: Non-tender. Bowel sounds Y. : Unremarkable. 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 Extremities: no edema. Capillary refill < 3 seconds. Skin: unremarkable. Results: Elevated trop 0.074. CXR clear, unchanged. Hb 9.2. + tox screen. A/P: HTN: Hydrall added. Available chart/ vitals / labs / images reviewed. Video assessment done using teleICU camera, rest of exam as per RN. Monitor for increasing oxygenation needs. Critical Care: IV hydral. Once BP better controlled, transfer out. Discussed with YARIEL Guzman. Asked RN to reach out to eICU if any questions or concerns later. Time spent with patient/coordination of care with other health professionals (mins): 21 Sepsis Event Evaluation Height, Weight, BMI Height: 5'3.00" Weight: 155lbs. 8.0oz. 70.158188gf; 29.00 BMI Method:Stated Focused Exam Lactate Level 05/24/21 00:12: Lactic Acid Level 0.69 Exam Exam Patient acknowledged, consented, and participated in this virtual visit which was conducted using real time audio/video Vital Signs Date Time Temp Pulse Resp B/P (MAP) Pulse Ox O2 Delivery O2 Flow Rate FiO2 05/25/21 09:00 97 26 170/104 (126) 92 Nasal Cannula 4.00 05/25/21 08:08 37.0 98 95 05/25/21 08:00 92 Room Air 05/25/21 08:00 97 21 141/103 (110) 93 Nasal Cannula 4.00 05/25/21 07:15 37.0 05/25/21 07:00 98 28 175/111 (131) 97 Nasal Cannula 4.00 05/25/21 07:00 99 05/25/21 06:00 98 24 171/106 (127) 95 Nasal Cannula 4.00 05/25/21 05:45 105 24 182/112 (135) 94 Nasal Cannula 4.00 05/25/21 05:30 101 24 171/107 (128) 96 Nasal Cannula 4.00 05/25/21 05:15 101 16 172/105 (127) 94 Nasal Cannula 4.00 05/25/21 05:13 98 Nasal Cannula 4.00 05/25/21 05:09 37.1 106 24 187/101 (129) Nasal Cannula 4.00 05/25/21 04:59 37.9 105 22 163/103 95 Nasal Cannula 4.00 05/24/21 23:39 37.9 116 20 94 Nasal Cannula 4.00 I & O 05/25/21 07:00 Intake Total 0 ml Output Total 1500 ml Balance -1500 ml Height & Weight Height: 5'3.00" Weight: 155lbs. 8.0oz. 70.939077jd; 29.00 BMI Method:Stated General Appearance: Other ( ABOVE; FILTHY, MALODOROUS, UNKEMPT, COVERED IN ANIMAL HAIR) HEENT: Other (POOR DENTITION) Respiratory: Normal Breath Sounds, Other (LEFT CENTRAL LINE IN PLACE, NO SIGNS OF INFECTION) Cardiovascular: No Murmur, Tachycardia Capillary Refill: Less Than 3 Seconds Peripheral Pulses: 1+ Dorsalis Pedis (R), 1+ Left Dors-Pedis (L) (see free text) Extremity: Pedal Edema (TRACE TO 1+ BILATERALLY), Other (EXTENSIVE SOR ES/SCARS/SCABS TO ARMS, CHEST, FACE) Neurologic/Psychiatric: No Motor/Sensory Deficits, Other (BEHAVIOR NOTED ABOVE) Skin: Warm/Dry Results Lab Laboratory Tests 05/24/21 00:12 Assessment/Plan Assessment/Plan see free text. Critical Care: Critically Ill Patient Time spent on discussion(mins): 0 EDILBERTO PROCTOR MD May 25, 2021 09:59
[2021-05-25] MEDS ORDERED: cloNIDine 0.2 MG PATCH (CATAPRES TTS) TDSY TD SCH (10:30)
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
[2021-05-25] MEDS: NITROGLYCERIN 2% OINT 1 GM UNIT DOSE PACKET TOP SCH ×2 (12:50→17:33)
[2021-05-25] MEDS: RT-ALBUTEROL/IPRATROPIUM 3 ML (DUONEB) VIAL INH SCH ×2 (15:20→21:20)
[2021-05-25] MEDS: ENOXAPARIN 80 MG/0.8 ML (LOVENOX) SYR SC SCH (17:32)
[2021-05-26] MEDS: NITROGLYCERIN 2% OINT 1 GM UNIT DOSE PACKET TOP SCH ×3 (00:46→13:28)
[2021-05-26] MEDS: hydrALAZINE (APESOLINE) 20 MG/ML VIAL IV SCH ×5 (00:46→16:04)
[2021-05-26] MEDS: LORazepam INJ 2 MG/ML (ATIVAN) VIAL IVP PRN ×2 (00:46→04:25)
[2021-05-26] MEDS: RT-ALBUTEROL/IPRATROPIUM 3 ML (DUONEB) VIAL INH SCH ×4 (02:38→21:16)
[2021-05-26] MEDS: cefTRIAXone 1,000 MG/SWFI 10 ML IV PUSH IV SCH ×2 (04:25)
[2021-05-26] MEDS: ENOXAPARIN 80 MG/0.8 ML (LOVENOX) SYR SC SCH ×2 (04:26→16:52)
[2021-05-26] MEDS: AZITHROMYCIN 500 MG/NS 250 ML IVPB IV SCH ×2 (05:37)
[2021-05-26 06:03] LABS: BASOPHILS % (AUTO) 1 % (0-10); EOSINOPHILS % (AUTO) 1 % (0-10); HEMATOCRIT 33 % (35-52); HEMOGLOBIN 10.3 g/dL (11.5-16.0); LYMPHOCYTES # (AUTO) 1.7 10^3/uL (1.0-4.0); LYMPHOCYTES % (AUTO) 23 % (12-44); MEAN CORPUSCULAR HEMOGLOBIN 26 pg (25-34); MEAN CORPUSCULAR HGB CONC 31 g/dL (32-36); MEAN CORPUSCULAR VOLUME 83 fL (80-99); MEAN PLATELET VOLUME 10.4 fL (9.0-12.2); MONOCYTES # (AUTO) 0.6 10^3/uL (0.0-1.0); MONOCYTES % (AUTO) 8 % (0-12); NEUTROPHILS # (AUTO) 5.1 10^3/uL (1.8-7.8); NEUTROPHILS % (AUTO) 68 % (42-75); PLATELET COUNT 471 10^3/uL (130-400); WHITE BLOOD COUNT 7.5 10^3/uL (4.3-11.0)
[2021-05-26 06:16] LABS: ALBUMIN 3.3 GM/DL (3.2-4.5); POTASSIUM 3.8 MMOL/L (3.6-5.0)
[2021-05-26 06:17] LABS: CALCIUM 8.6 MG/DL (8.5-10.1)
[2021-05-26 06:19] LABS: TOTAL PROTEIN 7.8 GM/DL (6.4-8.2)
[2021-05-26 06:20] LABS: BILIRUBIN,TOTAL 0.2 MG/DL (0.1-1.0)
[2021-05-26 06:22] LABS: CREATININE SERUM 1.43 MG/DL (0.60-1.30)
[2021-05-26] MEDS: ASPIRIN E.C. 81 MG (ECOTRIN) TAB PO SCH ×2 (08:44→10:52)
[2021-05-26] MEDS: ACETAMINOPHEN 500 MG TAB (TYLENOL) PO PRN (10:52)
--- NOTE | 2021-05-26 12:23 | Progress Note - Hospitalist ---
Subjective HPI/CC On Admission Date Seen by Provider: May 26, 2021 Time Seen by Provider: 12:30 CC: Altered Mental Status HPI: This is a 60yoWF with a hx of seizure disorder and meth use who presents to the ER with altered mental status, was found to be significantly hypoxic and in heart failure so she was admitted to the ICU with close monitoring. Pt denies any other significant problems. She is currently sleeping soundly. Subjective/Events-last exam Patient doing a lot better Ready to eat diet Check meds and labs Blood pressure stable Focused Exam Lactate Level 05/24/21 00:12: Lactic Acid Level 0.69 Objective Exam Vital Signs Vital Signs Date Time Temp Pulse Resp B/P (MAP) Pulse Ox O2 Delivery O2 Flow Rate FiO2 05/26/21 11:03 36.7 110 20 110/76 (87) 92 Room Air 05/26/21 10:20 4.00 Capillary Refill : Less Than 3 Seconds General Appearance: No Apparent Distress, WD/WN, Chronically ill Respiratory: Lungs Clear Cardiovascular: Regular Rate, Rhythm Neurologic/Psychiatric: Alert, Oriented x3 Results/Procedures Lab Laboratory Tests 05/26/21 05:43 Patient resulted labs reviewed. Assessment/Plan Assessment and Plan Assess & Plan/Chief Complaint Assessment: Altered mental status Meth use Seizure disorder Pseudoseizure disorder CAD Hypertension malignant type Plan: Supportive care Moved to fourth floor Monitor blood pressure 05/26/2021: Home meds Regular diet Supportive care Monitor for seizures Critical Care Critically Ill Patient RAJAN VALDOVINOS DO May 26, 2021 12:23
--- NOTE | 2021-05-26 12:54 | Consultation-Cardiology ---
HPI-Cardiology Cardiology Consultation: Date of Consultation 05/26/2021 Date of Admission 05/24/2021 Attending Physician Deepika Patel DO Admitting Physician [facility] Consulting Physician KRANTHI MIXON JR, MD HPI: Time Seen by a Provider: 12:52 Chief Complaint: Reason for consultation: Elevated troponin level in the setting of known coronary artery disease and now also with possible heart failure. I had the pleasure of seeing Michelle on the medical/surgical unit at [facility] in [place], [place] today. She has a history of mild coronary artery disease noted at cardiac catheterization in 2018, cardiomyopathy that improved, poorly controlled hypertension, and several other medical and psychological problems. She presented to the emergency room by EMS late in the evening on May 24. She was complaining of dyspnea. However, at that time, she was also intoxicated due to methamphetamine. She was found to have several metabolic de rangements and was admitted to the hospital for further treatment and evaluation. While she has been here, she has complained of some intermittent chest discomfort. Troponin levels were drawn which were shown to be mildly abnormal. As such, a cardiology consultation was requested. When I saw the patient, she was laying in bed. She states that she has right-sided chest discomfort related to a kidney problem. She told me her shortness of breath had improved but not completely resolved. She denies paroxysmal nocturnal dyspnea, orthopnea, palpitations, lightheadedness, syncope, or ankle edema. Certain portions of this document may have been dictated utilizing voice recognition technology. Inherent to this technology, typographical and grammatical errors may exist. As much as I am diligent to identify and correct these mistakes, some errors may remain in the document. [id number] Hx Patient Social History Marrital Status: single Employed/Student: unemployed Smoking Status: Current Everyday Smoker Former smoker/When Quit: Oct 13, 2007 2nd Hand Smoke Exposure: No Have you traveled recently?: No Alcohol Use?: No Substance type: Methamphetamine, Marijuana Tobacco type used: Cigarettes Immunizations Up To Date Tetanus Booster (TDap): Less than 5yrs Date of Pneumonia Vaccine: Jul 13, 2012 Date of Influenza Vaccine: Jul 27, 2020 Past Medical History PMH As described under Assessment. Family Medical History Family History: Abdominal aortic aneurysm 03 FATHER Alcoholism 03 FATHER 03 MOTHER 09 SISTER 09 SISTER Cancer 03 FATHER Cataract 03 FATHER 03 MOTHER Chest pain 03 MOTHER Family history: Diabetes mellitus 03 MOTHER Family history: Hypertension 03 MOTHER Family history: Thyroid disorder 03 MOTHER Headache 09 SISTER Heart disease 03 MOTHER History of drug abuse 03 FATHER 09 SISTER Myocardial infarction 03 MOTHER No Family History of: Irion's disease Aphasia Cancer of colon Congenital heart disease Congestive heart failure Cystic fibrosis Dementia Dysphagia Family history: Allergy Family history: Alzheimer's disease Family history: Arthritis Family history: Asthma Family history: Breast disease Family history: Cardiovascular disease Family history: Coronary thrombosis Family history: Gastrointestinal disease Family history: Glaucoma Family history: Osteoporosis Hearing loss Hereditary disease History of - anemia History of - disorder History of - respiratory disease Human immunodeficiency virus (HIV) seropositivity Hypercholesterolemia Infertile Kidney disease Malignant neoplasm of lung Parkinson's disease Prostate cancer Psychotic disorder Seizure disorder Stroke Tuberculosis Visual impairment Allergies and Home Medications Allergies Coded Allergies: nitrous oxide (Verified Allergy, Unknown, 06/08/07) Home Medications Acetaminophen 500 Mg Tablet, 1,000 MG PO Q6H PRN for PAIN-MILD, (Reported) Last Action: Held Albuterol Sulfate 1 Puff Puff, 2 PUFF IH Q4H PRN for SHORTNESS OF BREATH 1 PUFF = 90 MCG Prescribed by: MATTHEW DAVID on 03/08/21 0759 Last Action: Held Amlodipine Besylate 10 Mg Tablet, 5 MG PO BID, (Reported) TAKES OF A 10MG TAB Last Action: Continued Carvedilol 25 Mg Tab, 25 MG PO BID, (Reported) Last Action: Converted Divalproex Sodium 250 Mg Tablet.dr, 250 MG PO TID, (Reported) Last Action: Continued Famotidine 20 Mg Tablet, 20 MG PO BID, (Reported) Last Action: Continued Hydralazine HCl 100 Mg Tablet, 100 MG PO TID, (Reported) Last Action: Converted Levetiracetam 500 Mg Tablet, 1,000 MG PO BID, (Reported) TAKES 2 (500MG) TABS Last Action: Continued Phenobarbital 64.8 Mg Tablet, 129.6 MG PO BID, (Reported) TAKES 2 (64.8MG) TABS TO EQUAL 129.6 Last Action: Continued Patient Home Medication List Home Medication List Reviewed: Yes Exam Vital Signs Vital Signs Date Time Temp Pulse Resp B/P (MAP) Pulse Ox O2 Delivery O2 Flow Rate FiO2 05/26/21 11:03 36.7 110 20 110/76 (87) 92 Room Air 05/26/21 10:20 4.00 Physical Exam General: Alert. No acute distress. Well nourished and appears older than stated age. She is disheveled. Eye: Extraocular movements are intact. Conjunctivae are clear. There are no xanthelasma. HENT: Normocephalic. Atraumatic. Carotid pulsations 2/2 without bruits. Neck: Jugular venous pressure does not appear elevated. No thyromegaly appreciated. Respiratory: Lungs are clear to auscultation. Respirations are non-labored. Breath sounds are equal. Symmetrical chest wall expansion. Cardiovascular: Normal rate. Regular rhythm. 2/6 systolic ejection murmur. No gallop. Point of maximal impulse is not appear displaced. Good pulses equal in all extremities. No edema. The right side of her chest just below her right breast is tender to light palpation. Gastrointestinal: Soft. Normal bowel sounds. Skin: Skin turgor is normal. There is no pallor. Diffuse excoriations on upper and lower extremities bilaterally. Musculoskeletal: No kyphosis or scoliosis appreciated. Neurologic: Alert and oriented to person, place, and year but not month or day. Cranial nerves 3-12 appear grossly intact. The patient has good motor tone strength in the upper and lower extremities bilaterally. Psychiatric: Cooperative. Appropriate mood & affect. Labs Laboratory Tests Test 05/25/21 15:34 05/25/21 20:22 05/26/21 05:29 05/26/21 05:43 Range/Units Glucometer 124 H 101 72 70-110 MG/DL White Blood Count 7.5 4.3-11.0 10^3/uL Red Blood Count 3.98 3.80-5.11 10^6/uL Hemoglobin 10.3 L 11.5-16.0 g/dL Hematocrit 33 L 35-52 % Mean Corpuscular Volume 83 80-99 fL Mean Corpuscular Hemoglobin 26 25-34 pg Mean Corpuscular Hemoglobin Concent 31 L 32-36 g/dL Red Cell Distribution Width 16.3 H 10.0-14.5 % Platelet Count 471 H 130-400 10^3/uL Mean Platelet Volume 10.4 9.0-12.2 fL Immature Granulocyte % (Auto) 0 % Neutrophils (%) (Auto) 68 42-75 % Lymphocytes (%) (Auto) 23 12-44 % Monocytes (%) (Auto) 8 0-12 % Eosinophils (%) (Auto) 1 0-10 % Basophils (%) (Auto) 1 0-10 % Neutrophils # (Auto) 5.1 1.8-7.8 10^3/uL Lymphocytes # (Auto) 1.7 1.0-4.0 10^3/uL Monocytes # (Auto) 0.6 0.0-1.0 10^3/uL Eosinophils # (Auto) 0.0 0.0-0.3 10^3/uL Basophils # (Auto) 0.0 0.0-0.1 10^3/uL Immature Granulocyte # (Auto) 0.0 0.0-0.1 10^3/uL Sodium Level 143 135-145 MMOL/L Potassium Level 3.8 3.6-5.0 MMOL/L Chloride Level 102 98-107 MMOL/L Carbon Dioxide Level 24 21-32 MMOL/L Anion Gap 17 H 5-14 MMOL/L Blood Urea Nitrogen 37 H 7-18 MG/DL Creatinine 1.43 H 0.60-1.30 MG/DL Estimat Glomerular Filtration Rate 37 BUN/Creatinine Ratio 26 Glucose Level 89 70-105 MG/DL Calcium Level 8.6 8.5-10.1 MG/DL Corrected Calcium 9.2 8.5-10.1 MG/DL Total Bilirubin 0.2 0.1-1.0 MG/DL Aspartate Amino Transf (AST/SGOT) 14 5-34 U/L Alanine Aminotransferase (ALT/SGPT) 16 0-55 U/L Alkaline Phosphatase 87 40-136 U/L Total Protein 7.8 6.4-8.2 GM/DL Albumin 3.3 3.2-4.5 GM/DL Test 05/26/21 11:08 Range/Units Glucometer 91 70-110 MG/DL Radiology ECHOCARDIOGRAM (11/29/2019): 1. Normal left ventricular chamber size with mild concentric left ventricular hypertrophy. Normal left ventricular systolic function with an estimated ejection fraction of 55-65%. 2. Left ventricular diastolic parameters are normal. 3. Mild mitral regurgitation. 4. Moderate tricuspid regurgitation. 5. Estimated pulmonary artery systolic pressure 40-45 mmHg. REGADENOSON NUCLEAR STRESS TEST (07/07/2019): 1. Pharmacologic stress test was negative for ischemia. 2. Normal LV function with no wall motion abnormalities. Ejection fraction 50%. 3. Normal myocardial perfusion imaging during rest and stress. CARDIAC CATHETERIZATION (02/20/2018): 1. Mild coronary artery disease. 2. Severe LV systolic dysfunction with an estimated ejection fraction of 30%. 3. No significant bilateral renal artery stenosis. ECG Impression ECG Comment ELECTROCARDIOGRAM (05/26/2021): Sinus rhythm with left ventricular hypertrophy. No acute abnormalities. Diagnosis/Problems Diagnosis/Problems (1) Elevated troponin Status: Acute Assessment & Plan: She has a marginally elevated troponin. She is having atypical chest pain. There are no ischemic changes on her electrocardiogram. She had a cardiac catheterization 2 years ago that did not show significant epicardial coronary disease. I suspect this was a probable type II NSTEMI related to hypertensive urgency that then led to acute on chronic diastolic heart failure. At some point, we may need to consider a follow-up stress test. However, today is Friday and we do not perform this testing on the weekends. I do not see any strong indication to proceed with cardiac catheterization at this time. I recommend she continue on aspirin, beta-lei and amlodipine. I will discontinue the topical nitrates. If she has recurrent chest discomfort, we may want to consider adding long-acting nitrates.. Her cholesterol level is under very good control on no statin medication. Given her history of drug use, she would not be an ideal candidate for statin medication. (2) Coronary artery disease without angina pectoris Assessment & Plan: Assessment and plan as above. It would not be unreasonable to continue therapeutic dose of enoxaparin until the time of discharge or for a total of 4 days, whichever comes first. (3) Cardiomyopathy Assessment & Plan: She had moderate to severe left ventricular systolic dysfunction at the time of her cardiac catheterization in 2018. However, she subsequently underwent both a stress test and echocardiogram which showed a normal ejection fraction. I recommend she continue on the present medication. If she is still here on Friday, I will plan on a follow-up echocardiogram. Otherwise, this could be done as an outpatient if she goes home tomorrow. It is not urgent that she have this test today or tomorrow as the results would not change the acute management. (4) Acute on chronic diastolic heart failure Assessment & Plan: From what I can gather from the patient, symptomatically she may be improved. I suggest follow-up chest x-ray tomorrow. (5) Hypertensive urgency Assessment & Plan: As above, I suspect the hypertensive urgency may have led to pulmonary edema. This has been a problem for the patient in the past and will need aggressive treatment. Unfortunately, given her ongoing illicit drug use, this will make treating her hypertension difficult. (6) Mitral regurgitation Status: Chronic Assessment & Plan: This was mild on her most recent echocardiogram and should not be contributing to her symptomatology. KRANTHI MIXON JR, MD May 26, 2021 12:54
[2021-05-26] MEDS ORDERED: amLODIPine 10 MG (NORVASC) TAB PO SCH (21:00)
[2021-05-26] MEDS ORDERED: NON-FORMULARY MEDICATION 1 EA EA (Carvedilol (Coreg) 25 MG) PO SCH (21:00)
[2021-05-26] MEDS ORDERED: NON-FORMULARY MEDICATION 1 EA EA (Hydralazine HCl 100 MG) PO SCH (21:00)
[2021-05-26] MEDS: amLODIPine 5 MG (NORVASC) TAB PO SCH (21:18)
[2021-05-26] MEDS: DIVALPROEX 250 MG DELAYED RELEASE (DEPAKOTE) TAB PO SCH (21:18)
[2021-05-26] MEDS: FAMOTIDINE 20 MG (PEPCID) TABLET PO SCH (21:18)
[2021-05-26] MEDS: PHENobarbital 64.8 MG (1 GRAIN) TAb PO SCH (21:19)
[2021-05-26] MEDS: hydrALAZINE (APRESOLINE) 25 MG TAB PO SCH (21:19)
[2021-05-27] MEDS: LORazepam INJ 2 MG/ML (ATIVAN) VIAL IVP PRN ×2 (00:42→16:43)
[2021-05-27] MEDS: ONDANSETRON 4 MG/2 ML (SDV) Z0FRAN IVP PRN (00:43)
[2021-05-27] MEDS: ACETAMINOPHEN 500 MG TAB (TYLENOL) PO PRN (00:43)
[2021-05-27] MEDS: RT-ALBUTEROL/IPRATROPIUM 3 ML (DUONEB) VIAL INH SCH ×3 (02:25→20:40)
[2021-05-27] MEDS: cefTRIAXone 1,000 MG/SWFI 10 ML IV PUSH IV SCH ×2 (04:24)
[2021-05-27] MEDS: AZITHROMYCIN 500 MG/NS 250 ML IVPB IV SCH ×2 (04:24)
[2021-05-27] MEDS: ENOXAPARIN 80 MG/0.8 ML (LOVENOX) SYR SC SCH ×2 (04:24→17:51)
[2021-05-27 04:32] LABS: BASOPHILS # (AUTO) 0.1 10^3/uL (0.0-0.1); BASOPHILS % (AUTO) 1 % (0-10); EOSINOPHILS # (AUTO) 0.2 10^3/uL (0.0-0.3); EOSINOPHILS % (AUTO) 3 % (0-10); HEMATOCRIT 33 % (35-52); HEMOGLOBIN 9.9 g/dL (11.5-16.0); LYMPHOCYTES # (AUTO) 1.9 10^3/uL (1.0-4.0); LYMPHOCYTES % (AUTO) 37 % (12-44); MEAN CORPUSCULAR HEMOGLOBIN 26 pg (25-34); MEAN CORPUSCULAR HGB CONC 30 g/dL (32-36); MEAN CORPUSCULAR VOLUME 85 fL (80-99); MONOCYTES # (AUTO) 0.4 10^3/uL (0.0-1.0); MONOCYTES % (AUTO) 7 % (0-12); NEUTROPHILS # (AUTO) 2.7 10^3/uL (1.8-7.8); NEUTROPHILS % (AUTO) 52 % (42-75); PLATELET COUNT 428 10^3/uL (130-400); WHITE BLOOD COUNT 5.2 10^3/uL (4.3-11.0)
[2021-05-27 04:42] LABS: POTASSIUM 4.8 MMOL/L (3.6-5.0)
[2021-05-27 04:43] LABS: CALCIUM 8.2 MG/DL (8.5-10.1)
[2021-05-27 04:46] LABS: BILIRUBIN,TOTAL 0.2 MG/DL (0.1-1.0)
[2021-05-27 04:48] LABS: CREATININE SERUM 1.33 MG/DL (0.60-1.30)
--- NOTE | 2021-05-27 06:29 | Progress Note - Hospitalist ---
Subjective HPI/CC On Admission Date Seen by Provider: May 27, 2021 Time Seen by Provider: 12:00 CC: Altered Mental Status HPI: This is a 60yoWF with a hx of seizure disorder and meth use who presents to the ER with altered mental status, was found to be significantly hypoxic and in heart failure so she was admitted to the ICU with close monitoring. Pt denies any other significant problems. She is currently sleeping soundly. Subjective/Events-last exam Patient doing really well We will discontinue catheter Pseudoseizures Echocardiogram in the morning Eating and drinking well Review of Systems General: Fatigue Objective Exam Vital Signs Vital Signs Date Time Temp Pulse Resp B/P (MAP) Pulse Ox O2 Delivery O2 Flow Rate FiO2 05/27/21 20:00 Room Air 05/27/21 20:00 36.2 85 20 173/83 (113) 95 05/26/21 10:20 4.00 Capillary Refill : Less Than 3 Seconds General Appearance: No Apparent Distress, WD/WN, Chronically ill Respiratory: No Accessory Muscle Use, No Respiratory Distress, Decreased Breath Sounds Cardiovascular: Regular Rate, Rhythm Neurologic/Psychiatric: Alert, Oriented x3 Results/Procedures Lab Laboratory Tests 05/27/21 04:20 Patient resulted labs reviewed. Assessment/Plan Assessment and Plan Assess & Plan/Chief Complaint Assessment: Altered mental status Meth use Seizure disorder Pseudoseizure disorder CAD Hypertension malignant type Plan: Supportive care Moved to fourth floor Monitor blood pressure 05/26/2021: Home meds Regular diet Supportive care Monitor for seizures 05/27/2021: Pseudoseizure management Discontinue catheter Critical Care Critically Ill Patient RAJAN VALDOVINOS DO May 27, 2021 06:29
--- NOTE | 2021-05-27 08:55 | Diagnostic Imaging Report ---
CHEST PA/LAT (2 VIEW) Indication: Congestive heart failure Comparison: 05/25/2021 Findings: No pulmonary mass or consolidation. No pleural effusion or pneumothorax. Normal heart size and mediastinal contours. Stable left subclavian Port-A-Cath. Impression: Resolution of pleural effusions and interstitial pulmonary opacities. Dictated by: Dictated on workstation # [id number]
[2021-05-27] MEDS ORDERED: ASPIRIN E.C. 81 MG (ECOTRIN) TAB PO SCH (09:00)
[2021-05-27] MEDS: ASPIRIN E.C. 81 MG (ECOTRIN) TAB PO SCH (09:02)
[2021-05-27] MEDS: DIVALPROEX 250 MG DELAYED RELEASE (DEPAKOTE) TAB PO SCH ×3 (09:03→19:59)
[2021-05-27] MEDS: hydrALAZINE (APRESOLINE) 25 MG TAB PO SCH ×3 (09:03→19:59)
[2021-05-27] MEDS: amLODIPine 5 MG (NORVASC) TAB PO SCH ×2 (09:03→19:59)
[2021-05-27] MEDS: PHENobarbital 64.8 MG (1 GRAIN) TAb PO SCH ×2 (09:03→19:59)
--- NOTE | 2021-05-27 11:57 | Cardiology Progress Note ---
Progress Note-Cardiology Events since last exam Date Seen by Provider: May 27, 2021 Time Seen by Provider: 11:56 Events since last exam I am seeing her due to heart failure and possible NSTEMI. She states that her breathing is improved today. She denies chest discomfort. She does complain of occasional palpitations with a sensation of a fluttering in her chest. She denies syncope or ankle edema. Certain portions of this document may have been dictated utilizing voice recognition technology. Inherent to this technology, typographical and grammatical errors may exist. As much as I am diligent to identify and correct these mistakes, some errors may remain in the document. Vitals Last set of Vitals Signs Vital Signs 05/26/21 05/27/21 10:20 12:13 Temp 36.2 Pulse 79 Resp 18 B/P (MAP) 154/84 (107) Pulse Ox 94 O2 Delivery Room Air O2 Flow Rate 4.00 Labs Labs Laboratory Tests 05/27/21 04:20 Exam Vital Signs Vital Signs Date Time Temp Pulse Resp B/P (MAP) Pulse Ox O2 Delivery O2 Flow Rate FiO2 05/27/21 12:13 36.2 79 18 154/84 (107) 94 Room Air 05/26/21 10:20 4.00 Physical Exam General: Alert. No acute distress. She is disheveled. Eye: No xanthelasma. HENT: Normocephalic. Poor dentition. Neck: Jugular venous pressure does not appear elevated. Respiratory: Lungs are clear to auscultation. Respirations are non-labored. Breath sounds are equal. Symmetrical chest wall expansion. Cardiovascular: Normal rate. Regular rhythm. No murmur. No gallop. No edema. Gastrointestinal: Soft. Normal bowel sounds. Skin: Warm. Dry. Neurologic: Alert and oriented to person, place, time. Cranial nerves 3-11 grossly intact. Psychiatric: Cooperative. Appropriate mood & affect. Labs Laboratory Tests Test 05/26/21 15:24 05/26/21 20:36 05/27/21 04:20 05/27/21 11:35 Range/Units Glucometer 128 H 122 H 112 H 70-110 MG/DL White Blood Count 5.2 4.3-11.0 10^3/uL Red Blood Count 3.87 3.80-5.11 10^6/uL Hemoglobin 9.9 L 11.5-16.0 g/dL Hematocrit 33 L 35-52 % Mean Corpuscular Volume 85 80-99 fL Mean Corpuscular Hemoglobin 26 25-34 pg Mean Corpuscular Hemoglobin Concent 30 L 32-36 g/dL Red Cell Distribution Width 16.2 H 10.0-14.5 % Platelet Count 428 H 130-400 10^3/uL Mean Platelet Volume 10.0 9.0-12.2 fL Immature Granulocyte % (Auto) 0 % Neutrophils (%) (Auto) 52 42-75 % Lymphocytes (%) (Auto) 37 12-44 % Monocytes (%) (Auto) 7 0-12 % Eosinophils (%) (Auto) 3 0-10 % Basophils (%) (Auto) 1 0-10 % Neutrophils # (Auto) 2.7 1.8-7.8 10^3/uL Lymphocytes # (Auto) 1.9 1.0-4.0 10^3/uL Monocytes # (Auto) 0.4 0.0-1.0 10^3/uL Eosinophils # (Auto) 0.2 0.0-0.3 10^3/uL Basophils # (Auto) 0.1 0.0-0.1 10^3/uL Immature Granulocyte # (Auto) 0.0 0.0-0.1 10^3/uL Sodium Level 139 135-145 MMOL/L Potassium Level 4.8 3.6-5.0 MMOL/L Chloride Level 103 98-107 MMOL/L Carbon Dioxide Level 25 21-32 MMOL/L Anion Gap 11 5-14 MMOL/L Blood Urea Nitrogen 43 H 7-18 MG/DL Creatinine 1.33 H 0.60-1.30 MG/DL Estimat Glomerular Filtration Rate 41 BUN/Creatinine Ratio 32 Glucose Level 89 70-105 MG/DL Calcium Level 8.2 L 8.5-10.1 MG/DL Corrected Calcium 9.0 8.5-10.1 MG/DL Total Bilirubin 0.2 0.1-1.0 MG/DL Aspartate Amino Transf (AST/SGOT) 13 5-34 U/L Alanine Aminotransferase (ALT/SGPT) 16 0-55 U/L Alkaline Phosphatase 75 40-136 U/L Total Protein 7.0 6.4-8.2 GM/DL Albumin 3.0 L 3.2-4.5 GM/DL Diagnosis/Problems Diagnosis/Problems (1) Elevated troponin Status: Acute Assessment & Plan: She has a marginally elevated troponin. She has been having atypical chest pain. There are no ischemic changes on her electrocardiogram. She had a cardiac catheterization 2 years ago that did not show significant epicardial coronary disease. I suspect this was a probable type II NSTEMI related to hypertensive urgency that then led to acute on chronic diastolic heart failure. Continue aspirin and beta-lei. Her cholesterol level is under very good control on no medication. Since it appears she will still be here until tomorrow, I have taken the liberty of ordering a regadenoson nuclear stress test for tomorrow. (2) Coronary artery disease without angina pectoris Assessment & Plan: Assessment and plan as above. It would not be unreasonable to continue therapeutic dose of enoxaparin until the time of discharge or for a total of 4 days, whichever comes first. (3) Cardiomyopathy Assessment & Plan: She had moderate to severe left ventricular systolic dysfunction at the time of her cardiac catheterization in 2018. However, she subsequently underwent both a stress test and echocardiogram which showed a normal ejection fraction. I recommend she continue on the present medication. I have ordered a follow-up echocardiogram for tomorrow. (4) Acute on chronic diastolic heart failure Assessment & Plan: She is clinically improved today and her chest x-ray also appears improved. Continue present medication. (5) Hypertensive urgency Assessment & Plan: As above, I suspect the hypertensive urgency may have led to pulmonary edema. This has been a problem for the patient in the past and will need aggressive treatment. Unfortunately, given her ongoing illicit drug use, this will make treating her hypertension difficult. Her blood pressures are improved today but still high at times. She may need some additional adjustments to her antihypertensive medication if this persists. (6) Mitral regurgitation Status: Chronic Assessment & Plan: This was mild on her most recent echocardiogram and should not be contributing to her symptomatology. We should be able to get another assessment of the mitral regurgitation at the time of her follow-up echocardiogram. KRANTHI MIXON JR, MD May 27, 2021 11:57
[2021-05-27] MEDS ORDERED: REGADENOSON 0.4 MG/5 ML SYR (LEXISCAN) IV ONE (12:00)
[2021-05-27] MEDS: FAMOTIDINE 20 MG (PEPCID) TABLET PO SCH (19:59)
[2021-05-28] MEDS: RT-ALBUTEROL/IPRATROPIUM 3 ML (DUONEB) VIAL INH SCH ×3 (02:43→20:49)
[2021-05-28] MEDS: cefTRIAXone 1,000 MG/SWFI 10 ML IV PUSH IV SCH ×2 (03:35)
[2021-05-28] MEDS: AZITHROMYCIN 500 MG/NS 250 ML IVPB IV SCH ×2 (03:36)
[2021-05-28] MEDS: ENOXAPARIN 80 MG/0.8 ML (LOVENOX) SYR SC SCH (03:36)
[2021-05-28] MEDS: LORazepam INJ 2 MG/ML (ATIVAN) VIAL IVP PRN (05:00)
[2021-05-28 06:40] LABS: BASOPHILS # (AUTO) 0.1 10^3/uL (0.0-0.1); BASOPHILS % (AUTO) 1 % (0-10); EOSINOPHILS # (AUTO) 0.2 10^3/uL (0.0-0.3); EOSINOPHILS % (AUTO) 4 % (0-10); HEMATOCRIT 36 % (35-52); HEMOGLOBIN 10.8 g/dL (11.5-16.0); LYMPHOCYTES % (AUTO) 43 % (12-44); MEAN CORPUSCULAR HEMOGLOBIN 25 pg (25-34); MEAN CORPUSCULAR HGB CONC 30 g/dL (32-36); MEAN CORPUSCULAR VOLUME 84 fL (80-99); MEAN PLATELET VOLUME 9.9 fL (9.0-12.2); MONOCYTES # (AUTO) 0.3 10^3/uL (0.0-1.0); MONOCYTES % (AUTO) 6 % (0-12); NEUTROPHILS # (AUTO) 2.1 10^3/uL (1.8-7.8); NEUTROPHILS % (AUTO) 45 % (42-75); PLATELET COUNT 491 10^3/uL (130-400); WHITE BLOOD COUNT 4.6 10^3/uL (4.3-11.0)
[2021-05-28 07:00] LABS: ALBUMIN 3.2 GM/DL (3.2-4.5); BILIRUBIN,TOTAL 0.1 MG/DL (0.1-1.0); CALCIUM 8.9 MG/DL (8.5-10.1); CREATININE SERUM 1.25 MG/DL (0.60-1.30); TOTAL PROTEIN 7.5 GM/DL (6.4-8.2)
[2021-05-28] MEDS: DIVALPROEX 250 MG DELAYED RELEASE (DEPAKOTE) TAB PO SCH ×3 (09:00→21:01)
[2021-05-28] MEDS: hydrALAZINE (APRESOLINE) 25 MG TAB PO SCH ×3 (09:00→21:00)
[2021-05-28] MEDS ORDERED: CATHETER FLUSH 10 ML SYR IV PRN (11:00)
[2021-05-28] MEDS ORDERED: REGADENOSON 0.4 MG/5 ML SYR (LEXISCAN) IV ONE (11:59)
[2021-05-28] MEDS: ASPIRIN E.C. 81 MG (ECOTRIN) TAB PO SCH (13:23)
[2021-05-28] MEDS: PHENobarbital 64.8 MG (1 GRAIN) TAb PO SCH ×2 (13:24→21:01)
[2021-05-28] MEDS: amLODIPine 5 MG (NORVASC) TAB PO SCH ×2 (13:25→21:01)
--- NOTE | 2021-05-28 14:22 | Cardiology Progress Note ---
Progress Note-Cardiology Events since last exam Date Seen by Provider: May 28, 2021 Time Seen by Provider: 14:20 Events since last exam I am seeing her due to heart failure and possible NSTEMI. She denies chest discomfort or dyspnea. She underwent a nuclear stress test and echocardiogram earlier today. She denies palpitations, syncope, or ankle edema. Certain portions of this document may have been dictated utilizing voice recognition technology. Inherent to this technology, typographical and grammatical errors may exist. As much as I am diligent to identify and correct these mistakes, some errors may remain in the document. Vitals Last set of Vitals Signs Vital Signs 05/26/21 05/28/21 10:20 15:22 Temp 36.2 Pulse 88 Resp 18 B/P (MAP) 139/73 (95) Pulse Ox 98 O2 Delivery Room Air O2 Flow Rate 4.00 Labs Labs Laboratory Tests 05/28/21 06:21 Exam Vital Signs Vital Signs Date Time Temp Pulse Resp B/P (MAP) Pulse Ox O2 Delivery O2 Flow Rate FiO2 05/28/21 15:22 36.2 88 18 139/73 (95) 98 Room Air 05/26/21 10:20 4.00 Physical Exam General: Alert. No acute distress. Eye: No xanthelasma. HENT: Normocephalic. Neck: Jugular venous pressure does not appear elevated. Respiratory: Lungs are clear to auscultation. Respirations are non-labored. Breath sounds are equal. Symmetrical chest wall expansion. Cardiovascular: Normal rate. Regular rhythm. No murmur. No gallop. No edema. Gastrointestinal: Soft. Normal bowel sounds. Skin: Warm. Dry. Neurologic: Alert and oriented to person, place, time. Cranial nerves 3-11 grossly intact. Psychiatric: Cooperative. Appropriate mood & affect. Labs Laboratory Tests Test 05/27/21 20:31 05/28/21 06:21 05/28/21 06:23 05/28/21 06:25 Range/Units Glucometer 91 53 *L 88 70-110 MG/DL White Blood Count 4.6 4.3-11.0 10^3/uL Red Blood Count 4.28 3.80-5.11 10^6/uL Hemoglobin 10.8 L 11.5-16.0 g/dL Hematocrit 36 35-52 % Mean Corpuscular Volume 84 80-99 fL Mean Corpuscular Hemoglobin 25 25-34 pg Mean Corpuscular Hemoglobin Concent 30 L 32-36 g/dL Red Cell Distribution Width 16.1 H 10.0-14.5 % Platelet Count 491 H 130-400 10^3/uL Mean Platelet Volume 9.9 9.0-12.2 fL Immature Granulocyte % (Auto) 0 % Neutrophils (%) (Auto) 45 42-75 % Lymphocytes (%) (Auto) 43 12-44 % Monocytes (%) (Auto) 6 0-12 % Eosinophils (%) (Auto) 4 0-10 % Basophils (%) (Auto) 1 0-10 % Neutrophils # (Auto) 2.1 1.8-7.8 10^3/uL Lymphocytes # (Auto) 2.0 1.0-4.0 10^3/uL Monocytes # (Auto) 0.3 0.0-1.0 10^3/uL Eosinophils # (Auto) 0.2 0.0-0.3 10^3/uL Basophils # (Auto) 0.1 0.0-0.1 10^3/uL Immature Granulocyte # (Auto) 0.0 0.0-0.1 10^3/uL Sodium Level 139 135-145 MMOL/L Potassium Level 5.0 3.6-5.0 MMOL/L Chloride Level 105 98-107 MMOL/L Carbon Dioxide Level 25 21-32 MMOL/L Anion Gap 9 5-14 MMOL/L Blood Urea Nitrogen 35 H 7-18 MG/DL Creatinine 1.25 0.60-1.30 MG/DL Estimat Glomerular Filtration Rate 44 BUN/Creatinine Ratio 28 Glucose Level 91 70-105 MG/DL Calcium Level 8.9 8.5-10.1 MG/DL Corrected Calcium 9.5 8.5-10.1 MG/DL Total Bilirubin 0.1 0.1-1.0 MG/DL Aspartate Amino Transf (AST/SGOT) 14 5-34 U/L Alanine Aminotransferase (ALT/SGPT) 17 0-55 U/L Alkaline Phosphatase 73 40-136 U/L Total Protein 7.5 6.4-8.2 GM/DL Albumin 3.2 3.2-4.5 GM/DL Test 05/28/21 10:59 05/28/21 16:17 Range/Units Glucometer 81 106 70-110 MG/DL Diagnosis/Problems Diagnosis/Problems (1) Elevated troponin Status: Acute Assessment & Plan: She had a marginally elevated troponin. She has been having atypical chest pain. There are no ischemic changes on her electrocardiogram. She had a cardiac catheterization 2 years ago that did not show significant epicardial coronary disease. I suspect this was a probable type II NSTEMI related to hypertensive urgency that then led to acute on chronic diastolic heart failure. Continue aspirin and beta-lei. Her cholesterol level is under very good control on no medication. Her nuclear stress test showed normal myocardial perfusion. As such, I recommend ongoing medical therapy. There is no strong indication for invasive cardiac evaluation at this time. (2) Coronary artery disease without angina pectoris Assessment & Plan: Assessment and plan as above. Since the stress test was normal and this was a probable type II non-ST elevation myocardial infarction, it would not be unreasonable to change the enoxaparin over to DVT prophylaxis dosing at this time. (3) Cardiomyopathy Assessment & Plan: She had moderate to severe left ventricular systolic dysfunction at the time of her cardiac catheterization in 2018. However, she subsequently underwent both a stress test and echocardiogram which showed a normal ejection fraction. I recommend she continue on the present medication. Her stress test and echocardiogram again both show a normal ejection fraction at this time. (4) Acute on chronic diastolic heart failure Assessment & Plan: She is clinically improved. Continue present medication. From a cardiac standpoint, she will likely be ready for discharge in the very near future. (5) Hypertensive urgency Assessment & Plan: As above, I suspect the hypertensive urgency may have led to pulmonary edema. This has been a problem for the patient in the past and will need aggressive treatment. Unfortunately, given her ongoing illicit drug use, this will make treating her hypertension difficult. Her blood pressures are continuing to improve but still high at times. She may need some additional adjustments to her antihypertensive medication if this persists. (6) Mitral regurgitation Status: Chronic Assessment & Plan: This was mild on her most recent echocardiogram and should not be contributing to her symptomatology. We should be able to get another assessment of the mitral regurgitation at the time of her follow-up echocardiogram. KRANTHI MIXON JR, MD May 28, 2021 14:22
--- NOTE | 2021-05-28 17:05 | NUCLEAR STRESS TEST ---
REGADENOSON NUCLEAR STRESS Date of procedure: 05/28/2021. Primary care provider: [facility] Admitting physician: Summer Patel DO. INDICATION: Non-ST elevation myocardial infarction. BASELINE ELECTROCARDIOGRAM: Sinus rhythm, normal tracing STRESS TEST PROCEDURE: The patient was administered 0.4 mg of intravenous Regadenoson. The resting heart rate was 87 bpm and the peak heart rate was 109 bpm. The resting blood pressure was 155/99 mmHg and the minimum blood pressure was 155/99 mmHg. This represents a normal heart rate and a blunted blood pressure response to Regadenoson. The test was stopped due to the protocol. There was no chest discomfort during the test. There were isolated premature ventricular complexes during the test. There were no significant stress induced electrocardiogram changes. NUCLEAR PROCEDURE: The patient was administered 10.1 mCi of intravenous technetium 99m Tetrofosmin at rest for the rest images. The patient was subsequently administered 31.6 mCi of intravenous technetium 99m Tetrofosmin at peak stress for the stress images. Following an appropriate wait after each injection, imaging was obtained. The images were subsequently processed and reformatted in the usual views. Gated imaging was obtained. The image quality was adequate with some degree of gastrointestinal attenuation artifact. CT attenuation correction was used as a adjunct to standard imaging. Both the corrected and uncorrected images were reviewed for interpretation. NUCLEAR RESULTS: There was normal myocardial perfusion in all segments without evidence of infarction or ischemia. There was normal left ventricular chamber size with an end-diastolic volume of 92 mL and an end-systolic volume of 52 mL. There was no evidence of transient ischemic dilatation. The TID ratio was 1.12. There was normal wall motion in all segments with a visually estimated ejection fraction of 55-60%. The computer calculated ejection fraction appeared erroneous. IMPRESSION: 1. Normal heart rate and a blunted blood pressure response to regadenoson. 2. There was no chest discomfort or electrocardiogram changes during the test. 3. There were isolated premature ventricular complexes during the test. 4. There was normal myocardial perfusion in all segments without evidence of infarction or ischemia. 5. There was normal wall motion in all segments with the visually estimated ejection fraction of 55-60%. The computer calculated ejection fraction appeared erroneous. Certain portions of this document may have been dictated utilizing voice recognition technology. Inherent to this technology, typographical and grammatical errors may exist. As much as I am diligent to identify and correct these mistakes, some errors may remain in the document. KRANTHI MIXON JR, MD May 28, 2021 17:05
[2021-05-28] MEDS: ONDANSETRON 4 MG/2 ML (SDV) Z0FRAN IVP PRN (21:01)
[2021-05-28] MEDS: ACETAMINOPHEN 500 MG TAB (TYLENOL) PO PRN (21:01)
[2021-05-28] MEDS: FAMOTIDINE 20 MG (PEPCID) TABLET PO SCH (21:01)
--- NOTE | 2021-05-28 21:18 | Progress Note ---
Subjective Subjective/Events-last exam Pt states she is feeling well, denies concerns. Objective Exam Last Set of Vital Signs Vital Signs Date Time Temp Pulse Resp B/P (MAP) Pulse Ox O2 Delivery O2 Flow Rate FiO2 05/28/21 20:49 96 Room Air 05/28/21 15:22 36.2 88 18 139/73 (95) 05/26/21 10:20 4.00 Capillary Refill : Less Than 3 Seconds I&O Intake and Output 05/28/21 00:00 Intake Total 2620 ml Output Total 3525 ml Balance -905 ml Intake Oral 2620 ml Output Urine Total 3525 ml General: Alert, No Acute Distress Lungs: Clear to Auscultation, Normal Air Movement Heart: Regular Rate Neuro: Other (speech difficult to understand) Psych/Mental Status: Mood NL Results/Procedures Lab Laboratory Tests 05/28/21 06:21: White Blood Count 4.6, Red Blood Count 4.28, Hemoglobin 10.8L, Hematocrit 36, Mean Corpuscular Volume 84, Mean Corpuscular Hemoglobin 25, Mean Corpuscular Hemoglobin Concent 30L, Red Cell Distribution Width 16.1H, Platelet Count 491H, Mean Platelet Volume 9.9, Immature Granulocyte % (Auto) 0, Neutrophils (%) (Auto) 45, Lymphocytes (%) (Auto) 43, Monocytes (%) (Auto) 6, Eosinophils (%) (Auto) 4, Basophils (%) (Auto) 1, Neutrophils # (Auto) 2.1, Lymphocytes # (Auto) 2.0, Monocytes # (Auto) 0.3, Eosinophils # (Auto) 0.2, Basophils # (Auto) 0.1, Immature Granulocyte # (Auto) 0.0, Sodium Level 139, Potassium Level 5.0, Chloride Level 105, Carbon Dioxide Level 25, Anion Gap 9, Blood Urea Nitrogen 35H, Creatinine 1.25, Estimat Glomerular Filtration Rate 44, BUN/Creatinine Ratio 28, Glucose Level 91, Calcium Level 8.9, Corrected Calcium 9.5, Total Bilirubin 0.1, Aspartate Amino Transf (AST/SGOT) 14, Alanine Aminotransferase (ALT/SGPT) 17, Alkaline Phosphatase 73, Total Protein 7.5, Albumin 3.2 05/28/21 06:23: Glucometer 53*L 05/28/21 06:25: Glucometer 88 05/28/21 10:59: Glucometer 81 05/28/21 16:17: Glucometer 106 05/28/21 20:08: Glucometer 125H Microbiology 05/25/21 MRSA Screen - Final, Complete MRSA not isolated 05/24/21 Blood Culture - Preliminary, Resulted No growth Assessment/Plan Assessment/Plan (1) CHF (congestive heart failure) Status: Chronic Assessment & Plan: Improving, appreciate Cardiology recommendations. Qualifiers: Qualified Codes: I50.33 - Acute on chronic diastolic (congestive) heart failure (2) Pneumonia Status: Acute Assessment & Plan: On ceftriaxone and azithromycin (3) COPD (chronic obstructive pulmonary disease) Status: Chronic (4) Seizure disorder Status: Chronic (5) Altered mental status Status: Resolved Assessment & Plan: Altered on admission, now at baseline for her (6) Elevated troponin Status: Acute Assessment & Plan: Appreciate Cardiology recommendations, appears to be type II SD, stress test without evidence of ischemia on 05/28 (7) DVT prophylaxis Status: Acute Assessment & Plan: Enoxaparin MATTHEW DAVID MD May 28, 2021 21:18
[2021-05-29] MEDS: RT-ALBUTEROL/IPRATROPIUM 3 ML (DUONEB) VIAL INH SCH ×4 (02:19→22:30)
[2021-05-29] MEDS: cefTRIAXone 1,000 MG/SWFI 10 ML IV PUSH IV SCH ×2 (04:02)
[2021-05-29 04:17] LABS: BASOPHILS % (AUTO) 1 % (0-10); EOSINOPHILS # (AUTO) 0.3 10^3/uL (0.0-0.3); EOSINOPHILS % (AUTO) 6 % (0-10); HEMATOCRIT 37 % (35-52); HEMOGLOBIN 11.2 g/dL (11.5-16.0); LYMPHOCYTES # (AUTO) 1.9 10^3/uL (1.0-4.0); LYMPHOCYTES % (AUTO) 41 % (12-44); MEAN CORPUSCULAR HEMOGLOBIN 25 pg (25-34); MEAN CORPUSCULAR HGB CONC 30 g/dL (32-36); MEAN CORPUSCULAR VOLUME 84 fL (80-99); MEAN PLATELET VOLUME 9.9 fL (9.0-12.2); MONOCYTES # (AUTO) 0.3 10^3/uL (0.0-1.0); MONOCYTES % (AUTO) 7 % (0-12); NEUTROPHILS # (AUTO) 2.1 10^3/uL (1.8-7.8); NEUTROPHILS % (AUTO) 46 % (42-75); PLATELET COUNT 477 10^3/uL (130-400); WHITE BLOOD COUNT 4.6 10^3/uL (4.3-11.0)
[2021-05-29 04:48] LABS: POTASSIUM 5.2 MMOL/L (3.6-5.0)
[2021-05-29 04:49] LABS: CALCIUM 8.7 MG/DL (8.5-10.1)
[2021-05-29 04:54] LABS: CREATININE SERUM 1.42 MG/DL (0.60-1.30)
[2021-05-29] MEDS ORDERED: AZITHROMYCIN 250 MG TAB (ZITHROMAX) PO SCH (09:00)
[2021-05-29] MEDS ORDERED: ENOXAPARIN 80 MG/0.8 ML (LOVENOX) SYR SC SCH (09:00)
[2021-05-29] MEDS: ASPIRIN E.C. 81 MG (ECOTRIN) TAB PO SCH (09:09)
[2021-05-29] MEDS: amLODIPine 5 MG (NORVASC) TAB PO SCH ×2 (09:09→20:00)
[2021-05-29] MEDS: hydrALAZINE (APRESOLINE) 25 MG TAB PO SCH ×3 (09:09→20:00)
[2021-05-29] MEDS: DIVALPROEX 250 MG DELAYED RELEASE (DEPAKOTE) TAB PO SCH ×3 (09:10→20:00)
[2021-05-29] MEDS: ENOXAPARIN 40 MG/0.4 ML (LOVENOX) SYR SC SCH (09:11)
[2021-05-29] MEDS: PHENobarbital 64.8 MG (1 GRAIN) TAb PO SCH ×2 (09:12→20:04)
[2021-05-29 10:25] LABS: CALCIUM 9.1 MG/DL (8.5-10.1); CREATININE SERUM 1.38 MG/DL (0.60-1.30); POTASSIUM 4.9 MMOL/L (3.6-5.0)
[2021-05-29] MEDS: LORazepam INJ 2 MG/ML (ATIVAN) VIAL IVP PRN ×2 (10:31→10:52)
--- NOTE | 2021-05-29 17:14 | Cardiology Progress Note ---
Progress Note-Cardiology Events since last exam Date Seen by Provider: May 29, 2021 Time Seen by Provider: 16:00 Events since last exam I am seeing her for heart failure. She was supposed to go home today but this morning she had 3 [id number] seizures witnessed by the nurse. She is now resting comfortably in bed. She denies chest discomfort, dyspnea, palpitations, syncope, or ankle edema. Certain portions of this document may have been dictated utilizing voice recognition technology. Inherent to this technology, typographical and grammatical errors may exist. As much as I am diligent to identify and correct these mistakes, some errors may remain in the document. Vitals Last set of Vitals Signs Vital Signs 05/26/21 05/29/21 10:20 16:23 Temp 35.7 Pulse 90 Resp 20 B/P (MAP) 135/71 (92) Pulse Ox 94 O2 Delivery Room Air O2 Flow Rate 4.00 Labs Labs Laboratory Tests 05/29/21 04:05 05/29/21 10:03 Exam Vital Signs Vital Signs Date Time Temp Pulse Resp B/P (MAP) Pulse Ox O2 Delivery O2 Flow Rate FiO2 05/29/21 16:23 35.7 90 20 135/71 (92) 94 Room Air 05/26/21 10:20 4.00 Physical Exam General: Alert. No acute distress. Eye: No xanthelasma. HENT: Normocephalic. Poor dentition. Neck: Jugular venous pressure does not appear elevated. Respiratory: Lungs are clear to auscultation. Respirations are non-labored. Breath sounds are equal. Symmetrical chest wall expansion. Cardiovascular: Normal rate. Regular rhythm. No murmur. No gallop. No edema. Gastrointestinal: Soft. Normal bowel sounds. Skin: Warm. Dry. Neurologic: Alert and oriented to person, place, time. Cranial nerves 3-11 grossly intact. Psychiatric: Cooperative. Appropriate mood & affect. Labs Laboratory Tests Test 05/28/21 20:08 05/29/21 04:05 05/29/21 10:03 05/29/21 11:16 Range/Units Glucometer 125 H 77 70-110 MG/DL White Blood Count 4.6 4.3-11.0 10^3/uL Red Blood Count 4.43 3.80-5.11 10^6/uL Hemoglobin 11.2 L 11.5-16.0 g/dL Hematocrit 37 35-52 % Mean Corpuscular Volume 84 80-99 fL Mean Corpuscular Hemoglobin 25 25-34 pg Mean Corpuscular Hemoglobin Concent 30 L 32-36 g/dL Red Cell Distribution Width 16.0 H 10.0-14.5 % Platelet Count 477 H 130-400 10^3/uL Mean Platelet Volume 9.9 9.0-12.2 fL Immature Granulocyte % (Auto) 0 % Neutrophils (%) (Auto) 46 42-75 % Lymphocytes (%) (Auto) 41 12-44 % Monocytes (%) (Auto) 7 0-12 % Eosinophils (%) (Auto) 6 0-10 % Basophils (%) (Auto) 1 0-10 % Neutrophils # (Auto) 2.1 1.8-7.8 10^3/uL Lymphocytes # (Auto) 1.9 1.0-4.0 10^3/uL Monocytes # (Auto) 0.3 0.0-1.0 10^3/uL Eosinophils # (Auto) 0.3 0.0-0.3 10^3/uL Basophils # (Auto) 0.0 0.0-0.1 10^3/uL Immature Granulocyte # (Auto) 0.0 0.0-0.1 10^3/uL Sodium Level 137 138 135-145 MMOL/L Potassium Level 5.2 H 4.9 3.6-5.0 MMOL/L Chloride Level 102 104 98-107 MMOL/L Carbon Dioxide Level 25 26 21-32 MMOL/L Anion Gap 10 8 5-14 MMOL/L Blood Urea Nitrogen 38 H 36 H 7-18 MG/DL Creatinine 1.42 H 1.38 H 0.60-1.30 MG/DL Estimat Glomerular Filtration Rate 38 39 BUN/Creatinine Ratio 27 26 Glucose Level 100 116 H 70-105 MG/DL Calcium Level 8.7 9.1 8.5-10.1 MG/DL Test 05/29/21 16:31 Range/Units Glucometer 112 H 70-110 MG/DL Diagnosis/Problems Diagnosis/Problems (1) Elevated troponin Status: Acute Assessment & Plan: She had a marginally elevated troponin. Her chest discomfort seemed to have resolved over the weekend. I had her undergo a nuclear stress test on 05/28 and this was normal. She had a cardiac catheterization 2 years ago that did not show significant epicardial coronary disease. I suspect this was a probable type II NSTEMI related to hypertensive urgency that then led to acute on chronic diastolic heart failure. Continue aspirin and beta-lei. From a cardiac standpoint, the patient can be discharged home once her noncardiac issues are improved/resolved. (2) Coronary artery disease without angina pectoris Assessment & Plan: Assessment and plan as above. Since the stress test was normal and this was a probable type II non-ST elevation myocardial infarction, it would not be unreasonable to change the enoxaparin over to DVT prophylaxis dosing at this time. (3) Cardiomyopathy Assessment & Plan: She had moderate to severe left ventricular systolic dysfunction at the time of her cardiac catheterization in 2018. However, she subsequently underwent both a stress test and echocardiogram which showed a normal ejection fraction and then her stress test and echocardiogram from this admission does show a normal ejection fraction. She should continue on the present medication. (4) Acute on chronic diastolic heart failure Assessment & Plan: She is clinically improved. Continue present medication. (5) Hypertensive urgency Assessment & Plan: As above, I suspect the hypertensive urgency may have led to pulmonary edema. This has been a problem for the patient in the past and will need aggressive treatment. Unfortunately, given her ongoing illicit drug use, this will make treating her hypertension difficult. Her blood pressures are better today. (6) Mitral regurgitation Status: Chronic Assessment & Plan: This was mild on her most recent echocardiogram and should not be contributing to her symptomatology. We should be able to get another assessment of the mitral regurgitation at the time of her follow-up echocardiogram. KRANTHI MIXON JR, MD May 29, 2021 17:14
--- NOTE | 2021-05-29 18:56 | Progress Note ---
Subjective Subjective/Events-last exam Afebrile, anxious to go home. States she is feeling very well. Objective Exam Last Set of Vital Signs Vital Signs Date Time Temp Pulse Resp B/P (MAP) Pulse Ox O2 Delivery O2 Flow Rate FiO2 05/29/21 16:23 35.7 90 20 135/71 (92) 94 Room Air 05/26/21 10:20 4.00 Capillary Refill : Less Than 3 Seconds I&O Intake and Output 05/29/21 00:00 Intake Total 1590 ml Balance 1590 ml Intake Oral 1590 ml # Voids 8 # Bowel Movements 1 General: Alert, No Acute Distress Lungs: Clear to Auscultation, Normal Air Movement Heart: Regular Rate, No Murmurs Psych/Mental Status: Mood NL Results/Procedures Lab Laboratory Tests 05/28/21 20:08: Glucometer 125H 05/29/21 04:05: White Blood Count 4.6, Red Blood Count 4.43, Hemoglobin 11.2L, Hematocrit 37, Mean Corpuscular Volume 84, Mean Corpuscular Hemoglobin 25, Mean Corpuscular Hemoglobin Concent 30L, Red Cell Distribution Width 16.0H, Platelet Count 477H, Mean Platelet Volume 9.9, Immature Granulocyte % (Auto) 0, Neutrophils (%) (Auto) 46, Lymphocytes (%) (Auto) 41, Monocytes (%) (Auto) 7, Eosinophils (%) (Auto) 6, Basophils (%) (Auto) 1, Neutrophils # (Auto) 2.1, Lymphocytes # (Auto) 1.9, Monocytes # (Auto) 0.3, Eosinophils # (Auto) 0.3, Basophils # (Auto) 0.0, Immature Granulocyte # (Auto) 0.0, Sodium Level 137, Potassium Level 5.2H, Chloride Level 102, Carbon Dioxide Level 25, Anion Gap 10, Blood Urea Nitrogen 38H, Creatinine 1.42H, Estimat Glomerular Filtration Rate 38, BUN/Creatinine Ra van 27, Glucose Level 100, Calcium Level 8.7 05/29/21 10:03: Sodium Level 138, Potassium Level 4.9, Chloride Level 104, Carbon Dioxide Level 26, Anion Gap 8, Blood Urea Nitrogen 36H, Creatinine 1.38H, Estimat Glomerular Filtration Rate 39, BUN/Creatinine Ratio 26, Glucose Level 116H, Calcium Level 9 .1 05/29/21 11:16: Glucometer 77 05/29/21 16:31: Glucometer 112H Microbiology 05/25/21 MRSA Screen - Final, Complete MRSA not isolated 05/24/21 Blood Culture - Preliminary, Resulted No growth Assessment/Plan Assessment/Plan (1) CHF (congestive heart failure) Status: Chronic Assessment & Plan: Improving, appreciate Cardiology recommendations. Qualifiers: Qualified Codes: I50.33 - Acute on chronic diastolic (congestive) heart failure (2) Pneumonia Status: Acute Assessment & Plan: On ceftriaxone and azithromycin (3) COPD (chronic obstructive pulmonary disease) Status: Chronic (4) Seizure disorder Status: Chronic Assessment & Plan: Observed seizure just after I did my history and exam, given lorazepam 1 mg IV and immediately resolved, she was able to respond just after but confused. Her phenobarb and depakote levels were low on admission, continue home medications. (5) Altered mental status Status: Resolved Assessment & Plan: Altered on admission, now at baseline for her (6) Elevated troponin Status: Acute Assessment & Plan: Appreciate Cardiology recommendations, appears to be type II PA, stress test without evidence of ischemia on 05/28 (7) Chronic renal insufficiency Status: Chronic Assessment & Plan: Creatinine trended up today, monitor closely. (8) DVT prophylaxis Status: Acute Assessment & Plan: Enoxaparin MATTHEW DAVID MD May 29, 2021 18:56
[2021-05-29] MEDS: FAMOTIDINE 20 MG (PEPCID) TABLET PO SCH (20:00)
[2021-05-30] MEDS: RT-ALBUTEROL/IPRATROPIUM 3 ML (DUONEB) VIAL INH SCH ×3 (02:16→15:04)
[2021-05-30] MEDS: cefTRIAXone 1,000 MG/SWFI 10 ML IV PUSH IV SCH ×2 (04:28)
[2021-05-30 05:10] LABS: HEMATOCRIT 37 % (35-52); MEAN CORPUSCULAR HEMOGLOBIN 26 pg (25-34); MEAN CORPUSCULAR HGB CONC 30 g/dL (32-36); MEAN CORPUSCULAR VOLUME 85 fL (80-99); MEAN PLATELET VOLUME 9.8 fL (9.0-12.2); PLATELET COUNT 472 10^3/uL (130-400); WHITE BLOOD COUNT 5.5 10^3/uL (4.3-11.0)
[2021-05-30 05:20] LABS: POTASSIUM 5.3 MMOL/L (3.6-5.0)
[2021-05-30 05:21] LABS: CALCIUM 8.6 MG/DL (8.5-10.1)
[2021-05-30 05:26] LABS: CREATININE SERUM 1.4 MG/DL (0.60-1.30)
[2021-05-30] MEDS: amLODIPine 5 MG (NORVASC) TAB PO SCH (08:27)
[2021-05-30] MEDS: DIVALPROEX 250 MG DELAYED RELEASE (DEPAKOTE) TAB PO SCH ×2 (08:27→14:04)
[2021-05-30] MEDS: hydrALAZINE (APRESOLINE) 25 MG TAB PO SCH ×2 (08:27→14:05)
[2021-05-30] MEDS: ASPIRIN E.C. 81 MG (ECOTRIN) TAB PO SCH (08:27)
[2021-05-30] MEDS: PHENobarbital 64.8 MG (1 GRAIN) TAb PO SCH (08:28)
[2021-05-30] MEDS: ENOXAPARIN 40 MG/0.4 ML (LOVENOX) SYR SC SCH (08:28)
--- NOTE | 2021-05-30 10:00 | Cardiology Progress Note ---
Progress Note-Cardiology Events since last exam Date Seen by Provider: May 30, 2021 Time Seen by Provider: 09:57 Events since last exam I am seeing her due to heart failure. She looks much better than she did ye sterday after she had her seizures. She denies chest pain, dyspnea, palpitations, syncope, or ankle edema. Certain portions of this document may have been dictated utilizing voice recognition technology. Inherent to this technology, typographical and grammatical errors may exist. As much as I am diligent to identify and correct these mistakes, some errors may remain in the document. Vitals Last set of Vitals Signs Vital Signs 05/26/21 05/30/21 10:20 09:07 Temp 36.0 Pulse 83 Resp 20 B/P (MAP) 126/87 (100) Pulse Ox 97 O2 Delivery Room Air O2 Flow Rate 4.00 Labs Labs Laboratory Tests 05/30/21 05:00 Exam Vital Signs Vital Signs Date Time Temp Pulse Resp B/P (MAP) Pulse Ox O2 Delivery O2 Flow Rate FiO2 05/30/21 09:07 36.0 83 20 126/87 (100) 97 Room Air 05/26/21 10:20 4.00 Physical Exam General: Alert. No acute distress. Eye: No xanthelasma. HENT: Normocephalic other than poor dentition. Neck: Jugular venous pressure does not appear elevated. Respiratory: Lungs are clear to auscultation. Respirations are non-labored. Breath sounds are equal. Symmetrical chest wall expansion. Cardiovascular: Normal rate. Regular rhythm. No murmur. No gallop. No edema. Gastrointestinal: Soft. Normal bowel sounds. Skin: Warm. Dry. Neurologic: Alert and oriented to person, place, time. Cranial nerves 3-11 grossly intact. Psychiatric: Cooperative. Appropriate mood & affect. Labs Laboratory Tests Test 05/29/21 11:16 05/29/21 16:31 05/29/21 21:10 05/30/21 05:00 Range/Units Glucometer 77 112 H 129 H 70-110 MG/DL White Blood Count 5.5 4.3-11.0 10^3/uL Red Blood Count 4.31 3.80-5.11 10^6/uL Hemoglobin 11.0 L 11.5-16.0 g/dL Hematocrit 37 35-52 % Mean Corpuscular Volume 85 80-99 fL Mean Corpuscular Hemoglobin 26 25-34 pg Mean Corpuscular Hemoglobin Concent 30 L 32-36 g/dL Red Cell Distribution Width 15.9 H 10.0-14.5 % Platelet Count 472 H 130-400 10^3/uL Mean Platelet Volume 9.8 9.0-12.2 fL Sodium Level 136 135-145 MMOL/L Potassium Level 5.3 H 3.6-5.0 MMOL/L Chloride Level 105 98-107 MMOL/L Carbon Dioxide Level 21 21-32 MMOL/L Anion Gap 10 5-14 MMOL/L Blood Urea Nitrogen 42 H 7-18 MG/DL Creatinine 1.40 H 0.60-1.30 MG/DL Estimat Glomerular Filtration Rate 38 BUN/Creatinine Ratio 30 Glucose Level 114 H 70-105 MG/DL Calcium Level 8.6 8.5-10.1 MG/DL Diagnosis/Problems Diagnosis/Problems (1) Acute on chronic diastolic heart failure Assessment & Plan: She is clinically improved. Continue present medication. From a cardiac standpoint, she is ready for discharge. I have put an order to ask the hospital staff to get her appointment with her regular desktop technician, Dr. Paulino, within 1 week after discharge. (2) Elevated troponin Status: Acute Assessment & Plan: She had a marginally elevated troponin. Her chest discomfort seemed to have resolved over this past weekend. I had her undergo a nuclear stress test on 05/28 and this was normal. She had a cardiac catheterization 2 years ago that did not show significant epicardial coronary disease. I suspect this was a probable type II NSTEMI related to hypertensive urgency that then led to acute on chronic diastolic heart failure. Continue aspirin and beta-lei. From a cardiac standpoint, the patient can be discharged home once her noncardiac issues are improved/resolved. (3) Coronary artery disease without angina pectoris Assessment & Plan: Assessment and plan as above. (4) Cardiomyopathy Assessment & Plan: She had moderate to severe left ventricular systolic dysfunction at the time of her cardiac catheterization in 2018. However, she subsequently underwent both a stress test and echocardiogram which showed a normal ejection fraction and then her stress test and echocardiogram from this admission does show a normal ejection fraction. She should continue on the present medication. (5) Hypertensive urgency Assessment & Plan: As above, I suspect the hypertensive urgency may have led to pulmonary edema/heart failure. This has been a problem for the patient in the past and will need aggressive treatment. Unfortunately, given her ongoing illicit drug use, this will make treating her hypertension difficult. Her blood pressures have improved since admission. (6) Mitral regurgitation Status: Chronic Assessment & Plan: This was given mild on her echocardiogram from this [facility] lization and should not be contributing to her symptomatology. KRANTHI MIXON JR, MD May 30, 2021 09:59
--- NOTE | 2021-05-30 12:48 | Discharge Summary ---
Discharge Summary Hospital Course Problems/Diagnosis: (1) CHF (congestive heart failure) Status: Chronic Assessment & Plan: Appreciate Cardiology recommendations. Qualifiers: Qualified Codes: I50.33 - Acute on chronic diastolic (congestive) heart failure (2) Pneumonia Status: Acute Assessment & Plan: Completed course of ceftriaxone and azithromycin (3) COPD (chronic obstructive pulmonary disease) Status: Chronic (4) Seizure disorder Status: Chronic Assessment & Plan: Observed seizure on 05/29 am, given lorazepam 1 mg IV and immediately resolved, she was able to respond just after but confused. Her phenobarb and depakote levels were low on admission, suspect she had not been taking all regularly, resumed home medications. (5) Altered mental status Status: Resolved Resolution Date/Time: 05/28/21 @ 21:18 Assessment & Plan: Altered on admission, now at baseline for her (6) Elevated troponin Status: Acute Assessment & Plan: Appreciate Cardiology recommendations, appears to be type II [place], stress test without evidence of ischemia on 05/28 (7) Chronic renal insufficiency Status: Chronic Hospital Course Date of Admission: May 25, 2021 at 04:05 Admission Diagnosis : Family Physician/Provider: Center/[facility] Date of Discharge: 05/30/21 Discharge Diagnosis: See problem list Hospital Course: See problem list Labs and Pending Lab Test: Laboratory Tests 05/29/21 16:31: Glucometer 112H 05/29/21 21:10: Glucometer 129H 05/30/21 05:00: White Blood Count 5.5, Red Blood Count 4.31, Hemoglobin 11.0L, Hematocrit 37, Mean Corpuscular Volume 85, Mean Corpuscular Hemoglobin 26, Mean Corpuscular Hemoglobin Concent 30L, Red Cell Distribution Width 15.9H, Platelet Count 472H, Mean Platelet Volume 9.8, Sodium Level 136, Potassium Level 5.3H, Chloride Level 105, Carbon Dioxide Level 21, Anion Gap 10, Blood Urea Nitrogen 42H, Creatinine 1.40H, Estimat Glomerular Filtration Rate 38, BUN/Creatinine Ratio 30, Glucose Level 114H, Calcium Level 8.6 05/30/21 10:58: Glucometer 127H Microbiology 05/25/21 MRSA Screen - Final, Complete MRSA not isolated 05/24/21 Blood Culture - Preliminary, Resulted No growth Home Meds Active Reported Depakote (Divalproex Sodium) 250 Mg Tablet.dr 250 Mg PO TID LAST FILLED 02/05/21 #90 30 DAY SUPPLY Levetiracetam 500 Mg Tablet 1,000 Mg PO BID TAKES 2 (500MG) TABS LAST FILLED 02/05/2021 #120 90 DAY SUPPLY Acid Dtp Operator (FAMOTIDINE) (Famotidine) 20 Mg Tablet 20 Mg PO BID PRN Coreg (Carvedilol) 25 Mg Tab 25 Mg PO BID LAST FILLED 02/05/2021 #60 30 DAY SUPPLY Phenobarbital 64.8 Mg Tablet 129.6 Mg PO BID TAKES 2 (64.8MG) TABS TO EQUAL 129.6 LAST FILLED 01/11/2021 #120 30 DAY SUPPLY Hydralazine HCl 100 Mg Tablet 100 Mg PO TID LAST FILLED 02/05/2021 #90 30 DAY SUPPLY Amlodipine Besylate 10 Mg Tablet 5 Mg PO BID TAKES OF A 10MG TAB LAST FILLED 02/05/2021 #30 30 DAY SUPPLY Tylenol Extra Strength (Acetaminophen) 500 Mg Tablet 1,000 Mg PO Q6H PRN Assessment/Pt DC Instructions Follow up with Yemi Alcala APRN on 06/07 at 1:20 pm. Follow up with Dr. Paulino in one week. Discharge Diet: Cardiac Diet Activity as Tolerated: Yes Discharge Physical Examination Allergies: Coded Allergies: nitrous oxide (Verified Allergy, Unknown, 06/08/07) General Appearance: No Apparent Distress Respiratory: Lungs Clear, Normal Breath Sounds Cardiovascular: Regular Rate, Rhythm, No Edema Extremity: No Pedal Edema Skin: Normal Color, Warm/Dry Neurologic/Psychiatric: Alert, Normal Mood/Affect Copy Copies To 1: JESSE Rodríguez BETHANY N MD May 30, 2021 12:48
[2021-05-30 16:30] VITALS: BP 127/68
== END 2021-05-30 16:30 | disposition home or self-care (01) | DRG 280 ==
LOC: EDUNIT# 23:36 → ER 23:38 → ICU 05-25 04:05 → 4TH 05-25 17:45
PROVIDERS: ADMIT Internal Medicine; ATTEND Family Medicine
DX: I13.0 Hypertensive heart and chronic kidney disease with heart failure and stage 1 through stage 4 chronic kidney disease, or unspecified chronic kidney disease (principal); I50.33 Acute on chronic diastolic (congestive) heart failure; I21.A1 Myocardial infarction type 2; J18.9 Pneumonia, unspecified organism; J44.0 Chronic obstructive pulmonary disease with (acute) lower respiratory infection; J96.11 Chronic respiratory failure with hypoxia; I69.354 Hemiplegia and hemiparesis following cerebral infarction affecting left non-dominant side; F15.229 Other stimulant dependence with intoxication, unspecified; I42.9 Cardiomyopathy, unspecified; I16.0 Hypertensive urgency; N18.9 Chronic kidney disease, unspecified; E11.22 Type 2 diabetes mellitus with diabetic chronic kidney disease; I25.10 Atherosclerotic heart disease of native coronary artery without angina pectoris; F13.10 Sedative, hypnotic or anxiolytic abuse, uncomplicated; B19.20 Unspecified viral hepatitis C without hepatic coma; I73.9 Peripheral vascular disease, unspecified; G40.909 Epilepsy, unspecified, not intractable, without status epilepticus; K21.9 Gastro-esophageal reflux disease without esophagitis; M19.91 Primary osteoarthritis, unspecified site; F41.9 Anxiety disorder, unspecified; F31.9 Bipolar disorder, unspecified; D63.8 Anemia in other chronic diseases classified elsewhere; I34.0 Nonrheumatic mitral (valve) insufficiency; R26.81 Unsteadiness on feet; Z91.19 Patient's noncompliance with other medical treatment and regimen; Z99.81 Dependence on supplemental oxygen; Z87.820 Personal history of traumatic brain injury; Z85.41 Personal history of malignant neoplasm of cervix uteri
CPT/HCPCS: 36415; 51701; 71045; 71046; 71250; 78452; 80048; 80053; 80061; 80164; 80184; 80306; 80320; 81000; 82150; 82553; 82947; 83605; 83735; 83874; 83880; 84145; 84484; 85025; 85027; 85610; 85730; 87040; 87081; 87636; 93005; 93017; 93041; 93306; 94640; 94760; 96365; 96367; 96372; 96375; 96376

== ENCOUNTER 2021-08-16 08:22 | Observation (INO) | payer MEDICAID ==
[~2021-08-16] VITALS: Ht 160 cm; Wt 75.3 kg
[~2021-08-16 08:22] MED LIST changes: +CLIN-144 PO; -CLIN300C12 PO; -QUET25TA34 PO; +QUET25TA35 PO
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
[2021-08-16 08:45] LABS: BASOPHILS % (AUTO) 0 % (0-10); EOSINOPHILS # (AUTO) 0.3 10^3/uL (0.0-0.3); EOSINOPHILS % (AUTO) 3 % (0-10); HEMATOCRIT 31 % (35-52); HEMOGLOBIN 9.5 g/dL (11.5-16.0); LYMPHOCYTES # (AUTO) 1.4 10^3/uL (1.0-4.0); LYMPHOCYTES % (AUTO) 14 % (12-44); MEAN CORPUSCULAR HEMOGLOBIN 25 pg (25-34); MEAN CORPUSCULAR HGB CONC 30 g/dL (32-36); MEAN CORPUSCULAR VOLUME 81 fL (80-99); MEAN PLATELET VOLUME 9.7 fL (9.0-12.2); MONOCYTES # (AUTO) 0.5 10^3/uL (0.0-1.0); MONOCYTES % (AUTO) 5 % (0-12); NEUTROPHILS # (AUTO) 7.4 10^3/uL (1.8-7.8); NEUTROPHILS % (AUTO) 77 % (42-75); PLATELET COUNT 434 10^3/uL (130-400); WHITE BLOOD COUNT 9.6 10^3/uL (4.3-11.0)
[2021-08-16] MEDS ORDERED: FAMOTIDINE 20MG/2ML IV (PEPCID) IV STA (08:56)
[2021-08-16] MEDS ORDERED: ASPIRIN 81 MG CHEW (CHILDREN'S ASA) PO ONE (09:00)
[2021-08-16] MEDS ORDERED: LIDOCAINE 2% VISCOUS 15 ML UDC PO ONE (09:00)
[2021-08-16] MEDS ORDERED: ANTACID SUSP 30 ML UDC (MYLANTA) PO ONE (09:00)
[2021-08-16 09:07] LABS: ALBUMIN 3.3 GM/DL (3.2-4.5); BILIRUBIN,TOTAL 0.3 MG/DL (0.1-1.0); CALCIUM 8.1 MG/DL (8.5-10.1); CREATININE SERUM 1.31 MG/DL (0.60-1.30); POTASSIUM 5.1 MMOL/L (3.6-5.0)
[2021-08-16] MEDS ORDERED: NS IV 1000 ML 1,000 ML IV SCH ×2 (09:15→10:00)
[2021-08-16] MEDS ORDERED: LORazepam INJ 2 MG/ML (ATIVAN) VIAL ONE (09:26)
[2021-08-16 09:27] LABS: ABG BASE EXCESS 0.9 MMOL/L (-2.5-2.5); ABG OXYGEN SATURATION 64 % (94-100); ABG PCO2 46 MMHG (35-45); ABG PH 7.36 (7.37-7.43); ABG TCO2 27.3 MMOL/L (21.0-31.0)
[2021-08-16 09:29] LABS: ABG PO2 38 MMHG (79-93); ALLENS TEST YES-POS; INSPIRED O2 ROOM AIR; PATIENT TEMP 36.2; VENTILATOR NO
[2021-08-16] MEDS ORDERED: LORazepam INJ 2 MG/ML (ATIVAN) VIAL IVP ONE (09:30)
[2021-08-16] MEDS ORDERED: IOHEXOL 350 MG/ML 100 ML (OMNIPAQUE 350) VIAL IV ONE (10:00)
[2021-08-16] MEDS ORDERED: HOLD METFORMIN - RECEIVED CONTRAST 20 ML VIAL IV SCH (10:00)
[2021-08-16] MEDS ORDERED: NS 100 ML (IVPB) BAG IV ONE (10:00)
--- NOTE | 2021-08-16 10:06 | Diagnostic Imaging Report ---
INDICATION: Shortness of air. TIME OF EXAM: 9:47 AM Correlation is made with prior chest 05/25/2021. Heart size is stable. There appears to be some minimal infiltrate in the left base with partial obscuration left hemidiaphragm. Right lung is fairly clear. There is no effusion or pneumothorax. Left chest wall port has tip overlying the SVC. IMPRESSION: Minimal left basilar infiltrate or atelectasis. Dictated by: Dictated on workstation # [id number]
[2021-08-16 10:17] LABS: PROTHROMBIN TIME PATIENT 13.8 SEC (12.2-14.7)
--- NOTE | 2021-08-16 11:23 | Diagnostic Imaging Report ---
PROCEDURE: CT abdomen and pelvis with contrast, rule out appendicitis. TECHNIQUE: Multiple contiguous axial images were obtained through the abdomen and pelvis after the administration of intravenous contrast. All CT scans use one or more of the following dose optimizing techniques: automated exposure control, MA and/or KvP adjustment based on patient size and exam type or iterative reconstruction. INDICATION: Abdominal pain. Correlation is made with prior CT from 10/21/2020. Imaging through the lung bases does show small bilateral pleural effusions, new since prior CT. No discrete liver mass is detected. Gallbladder is contracted. No biliary duct dilatation is seen. Pancreas and spleen are unremarkable. No adrenal mass is detected. A right kidney is atrophic. Left kidney is somewhat lobulated in contour, similar to prior study but no discrete mass is detected. There is no hydronephrosis. Aorta is nonaneurysmal. There is a large amount of stool in the right colon as well as transverse colon. Small bowel is normal caliber. No free fluid is identified. There is no fluid collection. The appendix is not visualized with certainty but no inflammatory changes in the right lower quadrant are identified. The bony structures are nonacute. IMPRESSION: 1. Developing small bilateral pleural effusions. 2. Moderate stool suggestive of constipation. No definite CT evidence of acute appendicitis is identified. The bladder is unremarkable. Uterus appears to be surgically absent. Dictated by: Dictated on workstation # [id number]
[2021-08-16] MEDS ORDERED: NITROGLYCERIN 2% OINT 1 GM UNIT DOSE PACKET TOP ONE (13:00)
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
[2021-08-16] MEDS ORDERED: hydrALAZINE (APRESOLINE) 25 MG TAB PO ONE (13:15)
[2021-08-16] MEDS: amLODIPine 10 MG (NORVASC) TAB PO ONE ×2 (13:25→13:27)
[2021-08-16] MEDS ORDERED: NITROGLYCERIN 0.4 MG SL TABS BTL 25'S SL PRN (14:15)
[2021-08-16] MEDS ORDERED: ONDANSETRON 4 MG/2 ML (SDV) Z0FRAN IV PRN (14:15)
[2021-08-16] MEDS ORDERED: ACETAMINOPHEN 650 MG SUPP (TYLENOL) PR PRN (14:15)
[2021-08-16] MEDS ORDERED: polyethylene glycoL POWDER 17 GM (MIRALAX) PACK PO PRN (14:15)
[2021-08-16] MEDS ORDERED: ACETAMINOPHEN 325 MG TABLET PO PRN (14:15)
[2021-08-16] MEDS ORDERED: DIVALPROEX 250 MG DELAYED RELEASE (DEPAKOTE) TAB PO SCH (14:15)
[2021-08-16] MEDS ORDERED: CATHETER FLUSH 10 ML SYR IV PRN (14:15)
[2021-08-16] MEDS ORDERED: ENOXAPARIN 40 MG/0.4 ML (LOVENOX) SYR SC SCH (15:00)
[2021-08-16] MEDS: morphine INJ 4 MG/ML 1 ML (VIAL/SYRINGE) IV PRN ×2 (15:35→23:31)
[2021-08-16 16:07] VITALS: BP 156/82
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
--- NOTE | 2021-08-16 17:34 | Consultation-Cardiology ---
HPI-Cardiology Cardiology Consultation: Date of Consultation 08/16/21 Time Seen by a Provider: 17:00 Date of Admission Attending Physician Deepika Patel DO Admitting Physician [facility] Consulting Physician JAMES GENTILE MD, MA, FACP, FACC, [facility], [facility] Physician requesting consult: Dr Patel HPI: Chief Complaint: Chest pain Ms. Gregory is a 60 yr old female who was admitted to [facility] from the ED with c/o CP and uncontrolled HTN. She is currently in bed in the room c/o diffuse ACW pain which she reports is worse with any movement, light touch, or deep breathing. She denies any recent recent drug use. She reports she has been compliant with medications. C/O SOB. Unable to obtain any other information d/t patient yelling about her chest hurting evening when I move the blanket off of her chest. Review of Systems-Cardiology Review of Systems Constitutional: other (does not answer questions in detail, notes gen pain and gen weakness and gen malaise, doesn't provide any further ROS) All Other Systems Reviewed Negative Unless Noted: Yes [id number] Hx Patient Social History Smoking Status: Former Smoker Former smoker/When Quit: Oct 13, 2007 2nd Hand Smoke Exposure: No Have you traveled recently?: No Alcohol Use?: No Substance type: Methamphetamine Pt feels they are or have been: No Immunizations Up To Date Tetanus Booster (TDap): Less than 5yrs Date of Pneumonia Vaccine: Jul 13, 2012 Date of Influenza Vaccine: Jul 27, 2020 Past Medical History PMH As described under Assessment. Family Medical History Family Medical History: Documented family h/o father having a AAA. Mother having CAD. Family History: Abdominal aortic aneurysm 03 FATHER Alcoholism 03 FATHER 03 MOTHER 09 SISTER 09 SISTER Cancer 03 FATHER Cataract 03 FATHER 03 MOTHER Chest pain 03 MOTHER Family history: Diabetes mellitus 03 MOTHER Family history: Hypertension 03 MOTHER Family history: Thyroid disorder 03 MOTHER Headache 09 SISTER Heart disease 03 MOTHER History of drug abuse 03 FATHER 09 SISTER Myocardial infarction 03 MOTHER No Family History of: [place]'s disease Aphasia Cancer of colon Congenital heart disease Congestive heart failure Cystic fibrosis Dementia Dysphagia Family history: Allergy Family history: Alzheimer's disease Family history: Arthritis Family history: Asthma Family history: Breast disease Family history: Cardiovascular disease Family history: Coronary thrombosis Family history: Gastrointestinal disease Family history: Glaucoma Family history: Osteoporosis Hearing loss Hereditary disease History of - anemia History of - disorder History of - respiratory disease Human immunodeficiency virus (HIV) seropositivity Hypercholesterolemia Infertile Kidney disease Malignant neoplasm of lung Parkinson's disease Prostate cancer Psychotic disorder Seizure disorder Stroke Tuberculosis Visual impairment Allergies and Home Medications Allergies Coded Allergies: nitrous oxide (Verified Allergy, Unknown, 06/08/07) Patient Home Medication List Home Medication List Reviewed: Yes Acetaminophen (Tylenol Extra Strength) 500 Mg Tablet, 1,000 MG PO Q6H PRN for PAIN-MILD, (Reported) Entered as Reported by: ANTHONY RODRIGUEZ on 08/03/18 0904 Amlodipine Besylate (Amlodipine Besylate) 10 Mg Tablet, 5 MG PO BID, (Reported) Entered as Reported by: ANTHONY RODRIGUEZ on 07/07/19 1207 Carvedilol (Coreg) 25 Mg Tab, 25 MG PO BID, (Reported) Entered as Reported by: DAVID SANTANA on 11/29/19 1443 Divalproex Sodium (Depakote) 250 Mg Tablet.dr, 250 MG PO TID, (Reported) Entered as Reported by: DAVID SANTANA on 02/26/21 1036 Famotidine (Acid Side Laster Tack (FAMOTIDINE)) 20 Mg Tablet, 20 MG PO BID PRN for HEARTBURN, (Reported) Entered as Reported by: DAVID SANTANA on 11/29/19 1444 Hydralazine HCl (Hydralazine HCl) 100 Mg Tablet, 100 MG PO TID, (Reported) Entered as Reported by: DAVID SANTANA on 11/29/19 1441 Levetiracetam (Levetiracetam) 500 Mg Tablet, 1,000 MG PO BID, (Reported) Entered as Reported by: DAVID SANTANA on 02/26/21 1036 Phenobarbital (Phenobarbital) 64.8 Mg Tablet, 129.6 MG PO BID, (Reported) Entered as Reported by: DAVID SANTANA on 11/29/19 1441 Physical Exam-Cardiology Physical Exam Vital Signs/I&O 08/16/21 08/16/21 08/16/21 08/16/21 08:33 09:56 13:14 13:45 Temp 36.2 Pulse 87 88 98 Resp 22 18 18 B/P (MAP) 164/86 (112) 194/119 178/116 Pulse Ox 96 95 96 O2 Delivery Room Air Room Air Nasal Cannula Nasal Cannula O2 Flow Rate 2.00 2.00 08/16/21 16:07 Temp 36.9 Pulse 96 Resp 24 B/P (MAP) 156/82 (106) Pulse Ox 92 O2 Delivery Nasal Cannula O2 Flow Rate 2.00 Capillary Refill : Less Than 3 Seconds Constitutional: well-developed, well-nourished, other (mildly confused, minimally communicative) HEENT: hearing is well preserved; No oral hygience is good (multiple dental caries) Neck: No carotid bruit; carotid pulses are 2 + bilaterally Respiratory: rhonchi (scattered) Cardiovascular: regular rate-rhythm; No JVD; S1 and S2, other (discomfort to ACW with mild palpation) Gastrointestinal: audible bowel sounds Extremities: other (mild to mod LE swelling) Neurologic/Psychiatric: grossly intact (moves all extremities) Skin: other (multiple healing abrasions to arms and legs) Data Review Labs Laboratory Tests 08/16/21 08:30: Influenza Type A (RT-PCR) Not Detected, Influenza Type B (RT-PCR) Not Detected, SARS-CoV-2 RNA (RT-PCR) Not Detected 08/16/21 08:40: White Blood Count 9.6, Red Blood Count 3.87, Hemoglobin 9.5L, Hematocrit 31L, Mean Corpuscular Volume 81, Mean Corpuscular Hemoglobin 25, Mean Corpuscular Hemoglobin Concent 30L, Red Cell Distribution Width 17.3H, Platelet Count 434H, Mean Platelet Volume 9.7, Immature Granulocyte % (Auto) 0, Neutrophils (%) (Auto) 77H, Lymphocytes (%) (Auto) 14, Monocytes (%) (Auto) 5, Eosinophils (%) (Auto) 3, Basophils (%) (Auto) 0, Neutrophils # (Auto) 7.4, Lymphocytes # (Auto) 1.4, Monocytes # (Auto) 0.5, Eosinophils # (Auto) 0.3, Basophils # (Auto) 0.0, Immature Granulocyte # (Auto) 0.0, Prothrombin Time 13.8, INR Comment 1.0, Activated Partial Thromboplast Time 39H, Sodium Level 135, Potassium Level 5.1H, Chloride Level 104, Carbon Dioxide Level 22, Anion Gap 9, Blood Urea Nitrogen 25H, Creatinine 1.31H, Estimat Glomerular Filtration Rate 41, BUN/Creatinine Ratio 19, Glucose Level 104, Calcium Level 8.1L, Corrected Calcium 8.7, Magnesium Level 2.0, Total Bilirubin 0.3, Aspartate Amino Transf (AST/SGOT) 13, Alanine Aminotransferase (ALT/SGPT) 10, Alkaline Phosphatase 87, Total Creatine Kinase 70, Myoglobin 41.8, Troponin I 0.042H, C-Reactive Protein High Sensitivity 1.94H, Total Protein 7.0, Albumin 3.3 08/16/21 09:20: Blood Gas Puncture Site RT RAD, Blood Gas Patient Temperature 36.2, Arterial Blood pH 7.36L, Arterial Blood Partial Pressure CO2 46H, Arterial Blood Partial Pressure O2 38*L, Arterial Blood HCO3 26, Arterial Blood Total CO2 27.3, Loli rial Blood Oxygen Saturation 64L, Arterial Blood Base Excess 0.9, Dominguez Test YES-POS, Blood Gas Ventilator Setting NO, Blood Gas Inspired Oxygen ROOM AIR 08/16/21 11:46: Troponin I 0.056H 08/16/21 16:30: Troponin I 0.053H A/P-Cardiology Assessment/Admission Diagnosis Chest pain of undetermined etiology - Cardiac cath of 02-22-[address] Jenkins showed only mild CAD. LVEF 30%. - Echo of 05-28-[address] Landis showed LVEF 50-55%. Grade 1 diastolic dysfunction. LA dilated. Mild MR. Aortic root dilatation 3.7cm. - MPI of 05-28-[address] Landis showed no evidence of ischemia or infarction. LVEF 55-60% - Musculoskeletal origing suspected: chest pain reproducible with palpation and deep breathing Chronically mildly elevated troponin since 2010 - Likely Type 2 [place] secondary to uncontrolled HTN and/or intermittent hypoxia due to drug use Methamphetamine use - cessation advised HTN - uncontrolled - no evidence of renal artery stenosis seen at time of cardiac cath on 02-22-[address] Jenkins Hep C (+) COPD Tobaccoism - cessation advised Non-compliance with medications/instructions Discussion and Recomendations For hypertension home medications have been resumed per ED - adjust as indicated/tolerated Advised avoidance of all methamphetamines and street drugs and tobacco Management of seizure disorder is by the Medical Svce Monitor labs and replace electrolytes as indicated Further recs based on her hospital course We would like to thank Medical services for this consult JAMES GENTILE MD FACP FACC CCDS Aug 16, 2021 17:34
[2021-08-16 20:09] VITALS: BP 133/60
[2021-08-16] MEDS ORDERED: doxAzosin 4 MG (CARDURA) TAB PO SCH (21:00)
[2021-08-16] MEDS ORDERED: PHENobarbital 64.8 MG (1 GRAIN) TAb PO SCH (21:00)
[2021-08-16] MEDS ORDERED: hydrALAZINE (APRESOLINE) 25 MG TAB PO SCH (21:00)
[2021-08-16] MEDS ORDERED: FAMOTIDINE 20 MG (PEPCID) TABLET PO PRN (21:00)
[2021-08-16] MEDS ORDERED: ACETAMINOPHEN 500 MG TAB (TYLENOL) PO PRN (21:00)
[2021-08-16] MEDS ORDERED: PIPERACILLIN/TAZOBACTAM (BULK) 4.5 GM in NS (IVPB) 100 ML IV NR (22:00)
[2021-08-16] MEDS: CATHETER FLUSH 10 ML SYR IV SCH (22:58)
[2021-08-16] MEDS: hydrALAZINE (APRESOLINE) 25 MG TAB PO SCH (22:59)
[2021-08-16] MEDS: DIVALPROEX 250 MG DELAYED RELEASE (DEPAKOTE) TAB PO SCH (22:59)
[2021-08-16] MEDS: amLODIPine 10 MG (NORVASC) TAB PO SCH (23:00)
[2021-08-16] MEDS: PHENobarbital 64.8 MG (1 GRAIN) TAb PO SCH (23:00)
[2021-08-16 23:05] VITALS: BP 164/86
[2021-08-16] MEDS ORDERED: RT-ALBUTEROL/IPRATROPIUM 3 ML (DUONEB) VIAL INH PRN (23:15)
[2021-08-16 23:30] VITALS: BP 165/75
[2021-08-17 03:51] VITALS: BP 94/49
[2021-08-17] MEDS: PIPERACILLIN/TAZO 4.5 GM/NS 100 ML IV SCH ×4 (04:41→12:00)
[2021-08-17] MEDS: CATHETER FLUSH 10 ML SYR IV SCH (04:51)
[2021-08-17 05:01] LABS: BASOPHILS % (AUTO) 1 % (0-10); EOSINOPHILS # (AUTO) 0.2 10^3/uL (0.0-0.3); EOSINOPHILS % (AUTO) 3 % (0-10); HEMATOCRIT 27 % (35-52); HEMOGLOBIN 8.3 g/dL (11.5-16.0); LYMPHOCYTES # (AUTO) 1.4 10^3/uL (1.0-4.0); LYMPHOCYTES % (AUTO) 23 % (12-44); MEAN CORPUSCULAR HEMOGLOBIN 25 pg (25-34); MEAN CORPUSCULAR HGB CONC 31 g/dL (32-36); MEAN CORPUSCULAR VOLUME 81 fL (80-99); MONOCYTES # (AUTO) 0.6 10^3/uL (0.0-1.0); MONOCYTES % (AUTO) 9 % (0-12); NEUTROPHILS # (AUTO) 3.9 10^3/uL (1.8-7.8); NEUTROPHILS % (AUTO) 65 % (42-75); PLATELET COUNT 317 10^3/uL (130-400)
[2021-08-17 05:18] LABS: CALCIUM 7.9 MG/DL (8.5-10.1); CREATININE SERUM 1.38 MG/DL (0.60-1.30); POTASSIUM 4.9 MMOL/L (3.6-5.0)
[2021-08-17] MEDS: RT-ALBUTEROL/IPRATROPIUM 3 ML (DUONEB) VIAL INH SCH ×3 (07:05→15:15)
--- NOTE | 2021-08-17 07:18 | Diagnostic Imaging Report ---
Reason for examination: Chest pain. Upright AP portable chest was obtained and compared to yesterday. Heart size is within normal limits. No mediastinal widening. Stable central line. No heart failure, effusion or focal consolidating pneumonia. No definite infiltrate in the left base today. Impression: 1. No definite infiltrate is identified today. No effusions, heart failure or pneumothorax. Dictated by: Dictated on workstation # [id number]
[2021-08-17 08:23] VITALS: BP 108/67
[2021-08-17] MEDS ORDERED: amLODIPine 5 MG (NORVASC) TAB PO SCH (09:00)
[2021-08-17] MEDS ORDERED: ASPIRIN E.C. 81 MG (ECOTRIN) TAB PO SCH (09:00)
[2021-08-17] MEDS: amLODIPine 10 MG (NORVASC) TAB PO SCH (10:41)
[2021-08-17] MEDS: DIVALPROEX 250 MG DELAYED RELEASE (DEPAKOTE) TAB PO SCH ×2 (10:42→13:45)
[2021-08-17] MEDS: PHENobarbital 64.8 MG (1 GRAIN) TAb PO SCH (10:42)
[2021-08-17] MEDS: hydrALAZINE (APRESOLINE) 25 MG TAB PO SCH ×2 (10:42→13:45)
--- NOTE | 2021-08-17 10:59 | Discharge Summary ---
Discharge Summary Hospital Course Was the Problem List Reviewed?: Yes Problems/Dx: (1) Chest pain not due to acute coronary syndrome Hospital Course Date of Admission: Aug 16, 2021 at 12:30 Admission Diagnosis : Family Physician/Provider: [facility] Date of Discharge: 08/17/21 Discharge Diagnosis: Chest pain not due to acute coronary syndrome, meth use, seizure disorder Hospital Course: Hospital course: Michelle was admitted on 08/16/21 for SOB and R chest pain. Workup in the ED showed no new ECG changes, mildly elevated serial troponin which appears to be chronic, and O2sat 95% on RA. She wears 4LNC at baseline related to COPD. Cardiology was consulted and recommended HTN management with her home regimen. CXR revealed bilateral basilar infiltrates/atelectasis. CT abd/pelvis revealed small bilateral pleural effusions and a moderate stool burden. She initially complained of severe R sided chest pain exacerbated by touch, along with SOB. She was started on Zosyn, and by the next day her symptoms had resolved. She was also hypertensive on admission, but was controlled shortly after restarting her home medications. No acute events. She had no concerns/complaints at time of discharge. YUNIOR [employer]ERRY [employer] STUDENT Labs and Pending Lab Test: Laboratory Tests 08/16/21 11:46: Troponin I 0.056H 08/16/21 16:30: Troponin I 0.053H 08/16/21 21:16: Troponin I 0.031H 08/17/21 04:49: White Blood Count 6.0, Red Blood Count 3.38L, Hemoglobin 8.3L, Hematocrit 27L, Mean Corpuscular Volume 81, Mean Corpuscular Hemoglobin 25, Mean Corpuscular Hemoglobin Concent 31L, Red Cell Distribution Width 17.1H, Platelet Count 317, Mean Platelet Volume 10.0, Immature Granulocyte % (Auto) 0, Neutrophils (%) (Auto) 65, Lymphocytes (%) (Auto) 23, Monocytes (%) (Auto) 9, Eosinophils (%) (Auto) 3, Basophils (%) (Auto) 1, Neutrophils # (Auto) 3.9, Lymphocytes # (Auto) 1.4, Monocytes # (Auto) 0.6, Eosinophils # (Auto) 0.2, Basophils # (Auto) 0.0, Immature Granulocyte # (Auto) 0.0, Sodium Level 133L, Potassium Level 4.9, Chloride Level 102, Carbon Dioxide Level 22, Anion Gap 9, Blood Urea Nitrogen 24H, Creatinine 1.38H, Estimat Glomerular Filtration Rate 39, BUN/Creatinine R atio 17, Glucose Level 88, Calcium Level 7.9L, Triglycerides Level 75, Cholesterol Level 145, LDL Cholesterol Direct 66, VLDL Cholesterol 15, HDL Cholesterol 59 Home Meds Active Reported Depakote (Divalproex Sodium) 250 Mg Tablet.dr 250 Mg PO TID LAST FILLED 02/05/21 #90 30 DAY SUPPLY Levetiracetam 500 Mg Tablet 1,000 Mg PO BID TAKES 2 (500MG) TABS LAST FILLED 02/05/2021 #120 90 DAY SUPPLY Acid Pole Cutter (FAMOTIDINE) (Famotidine) 20 Mg Tablet 20 Mg PO BID PRN Coreg (Carvedilol) 25 Mg Tab 25 Mg PO BID LAST FILLED 02/05/2021 #60 30 DAY SUPPLY Phenobarbital 64.8 Mg Tablet 129.6 Mg PO BID TAKES 2 (64.8MG) TABS TO EQUAL 129.6 LAST FILLED 01/11/2021 #120 30 DAY SUPPLY Hydralazine HCl 100 Mg Tablet 100 Mg PO TID LAST FILLED 02/05/2021 #90 30 DAY SUPPLY Amlodipine Besylate 10 Mg Tablet 5 Mg PO BID TAKES OF A 10MG TAB LAST FILLED 02/05/2021 #30 30 DAY SUPPLY Tylenol Extra Strength (Acetaminophen) 500 Mg Tablet 1,000 Mg PO Q6H PRN Assessment/Pt Instructions PCP in 1 week Discharge Planning: <30 minutes discharge planning Discharge Instructions Discharge Diet: Regular Diet Activity as Tolerated: Yes Discharge Physical Examination Vital Signs Vital Signs Date Time Temp Pulse Resp B/P (MAP) Pulse Ox O2 Delivery O2 Flow Rate FiO2 08/17/21 10:28 91 Nasal Cannula 3.00 08/17/21 08:23 36.7 81 18 108/67 (81) 08/16/21 23:05 21 General Appearance: No Apparent Distress, WD/WN, Chronically ill Allergies: Coded Allergies: nitrous oxide (Verified Allergy, Unknown, 06/08/07) Discharge Summary Date of Admission Aug 16, 2021 at 12:30 Date of Discharge Discharge Date: Aug 17, 2021 Admission Diagnosis Assessment: Chest pain Elevated troponin Seizure disorder Pseudoseizure history Hypertension Hyperlipidemia Plan: Cardiology consult Supportive group home meds VALDOVINOS,RAJAN DO Aug 17, 2021 10:59
--- NOTE | 2021-08-17 11:18 | Progress Note - Cardiology ---
Cardiology SOAP Progress Note Subjective: Sitting up in bed Conversation is non-sensical Answers questions appropriately - no c/o CP or SOB Objective: I&O/Vital Signs 08/16/21 08/17/21 08/17/21 08/17/21 23:30 01:00 03:51 07:00 Temp 37.5 36.9 Pulse 104 92 88 81 Resp 20 18 B/P (MAP) 165/75 (105) 94/49 (64) Pulse Ox 90 92 O2 Delivery Nasal Cannula Nasal Cannula O2 Flow Rate 3.00 3.00 08/17/21 08/17/21 08/17/21 07:11 08:23 10:28 Temp 36.7 Pulse 81 Resp 18 B/P (MAP) 108/67 (81) Pulse Ox 97 94 91 O2 Delivery Nasal Cannula Nasal Cannula O2 Flow Rate 4.00 3.00 3.00 08/17/21 00:00 Intake Total 2840 ml Output Total 700 ml Balance 2140 ml Weight (Pounds): 155 Weight (Ounces): 8.0 Weight (Calculated Kilograms): 70.511382 Constitutional: well-developed, well-nourished, other (mildly confused, minimally communicative) Respiratory: rhonchi (scattered) Cardiovascular: regular rate-rhythm; No JVD; S1 and S2, other (discomfort to ACW with mild palpation) Gastrointestional: audible bowel sounds Extremities: other (mild to mod LE swelling) Neurologic/Psychiatric: grossly intact (moves all extremities) Skin: other (multiple healing abrasions to arms and legs) Results/Procedures: Labs Laboratory Tests 08/16/21 11:46: Troponin I 0.056H 08/16/21 16:30: Troponin I 0.053H 08/16/21 21:16: Troponin I 0.031H 08/17/21 04:49: White Blood Count 6.0, Red Blood Count 3.38L, Hemoglobin 8.3L, Hematocrit 27L, Mean Corpuscular Volume 81, Mean Corpuscular Hemoglobin 25, Mean Corpuscular Hemoglobin Concent 31L, Red Cell Distribution Width 17.1H, Platelet Count 317, Mean Platelet Volume 10.0, Immature Granulocyte % (Auto) 0, Neutrophils (%) (Auto) 65, Lymphocytes (%) (Auto) 23, Monocytes (%) (Auto) 9, Eosinophils (%) (Auto) 3, Basophils (%) (Auto) 1, Neutrophils # (Auto) 3.9, Lymphocytes # (Auto) 1.4, Monocytes # (Auto) 0.6, Eosinophils # (Auto) 0.2, Basophils # (Auto) 0.0, Immature Granulocyte # (Auto) 0.0, Sodium Level 133L, Potassium Level 4.9, Chloride Level 102, Carbon Dioxide Level 22, Anion Gap 9, Blood Urea Nitrogen 24H, Creatinine 1.38H, Estimat Glomerular Filtration Rate 39, BUN/Creatinine Ratio 17, Glucose Level 88, Calcium Level 7.9L, Triglycerides Level 75, Cholesterol Level 145, LDL Cholesterol Direct 66, VLDL Cholesterol 15, HDL Cholesterol 59 Laboratory Tests 08/16/21 08:40 08/17/21 04:49 A/P: Assessment: Chest pain of undetermined etiology - Cardiac cath of 02-22-[address] Jenkins showed only mild CAD. LVEF 30%. - Echo of 05-28-[address] Landis showed LVEF 50-55%. Grade 1 diastolic dysfunction. LA dilated. Mild MR. Aortic root dilatation 3.7cm. - MPI of 05-28-[address] Landis showed no evidence of ischemia or infarction. LVEF 55-60% - Musculoskeletal origing suspected: chest pain reproducible with palpation and deep breathing Chronically mildly elevated troponin since 2010 - Likely Type 2 [place] secondary to uncontrolled HTN and/or intermittent hypoxia due to drug use Methamphetamine use - cessation advised HTN - uncontrolled - no evidence of renal artery stenosis seen at time of cardiac cath on 02-22-[address] Jenkins Hep C (+) COPD Tobaccoism - cessation advised Non-compliance with medications/instructions Plan: BP has improved No further c/o CP Advised avoidance of all methamphetamines and street drugs and tobacco Management of seizure disorder is by the Medical Svce Stress the importance of cessation of street drugs and compliance with medications and f/u SILVIA MARCELO [facility] Aug 17, 2021 11:18
[2021-08-17 12:17] VITALS: BP 100/59
[2021-08-17 13:00] VITALS: BP 131/76
--- NOTE | 2021-08-17 13:49 | Progress Note ---
YUNIOR B[employer]Y MED STUDENT 08/17/21 1349: Progress Note Hospital course: Michelle was admitted on 08/16/21 for SOB and R chest pain. Workup in the ED showed no new ECG changes, mildly elevated serial troponin which appears to be chronic, and O2sat 95% on RA. She wears 4LNC at baseline related to COPD. Cardiology was consulted and recommended HTN management with her home regimen. CXR revealed bilateral basilar infiltrates/atelectasis. CT abd/pelvis revealed small bilateral pleural effusions and a moderate stool burden. She initially complained of severe R sided chest pain exacerbated by touch, along with SOB. She was started on Zosyn, and by the next day her symptoms had resolved. She was also hypertensive on admission, but was controlled shortly after restarting her home medications. No acute events. She had no concerns/complaints at time of discharge. DEEPIKA VALDOVINOS DO 08/18/21 0550: Supervisory-Addendum Brief Verification & Attestation Participated in pt care: history, MDM, physical Personally performed: exam, history, MDM, supervision of care Care discussed with: Medical Student Procedures: n/a Results interpretation: Verified all documentation Verification and Attestation of Medical Student E/M Service A medical student performed and documented this service in my presence. I reviewed and verified all information documented by the medical student and made modifications to such information, when appropriate. I personally performed the physical exam and medical decision making. Deepika Valdovinos, Aug 18, 2021,05:50 [employer] STUD[employer] Aug 17, 2021 13:49 DEEPIKA VALDOVINOS DO Aug 18, 2021 05:50
--- NOTE | 2021-08-17 15:27 | Progress Note - Cardiology ---
Cardiology SOAP Progress Note Subjective: No cp or palp or syncope Chronic exertional shortness of breath Does not report any symptoms at this time Objective: I&O/Vital Signs 08/17/21 08/17/21 08/17/21 08/17/21 03:51 07:00 07:11 08:23 Temp 36.9 36.7 Pulse 88 81 81 Resp 18 18 B/P (MAP) 94/49 (64) 108/67 (81) Pulse Ox 92 97 94 O2 Delivery Nasal Cannula Nasal Cannula O2 Flow Rate 3.00 4.00 3.00 08/17/21 08/17/21 08/17/21 08/17/21 09:00 10:28 12:17 15:17 Temp 36.5 Pulse 71 Resp 18 B/P (MAP) 100/59 (73) Pulse Ox 94 91 94 92 O2 Delivery Room Air Nasal Cannula Room Air Nasal Cannula O2 Flow Rate 3.00 08/17/21 00:00 Intake Total 2840 ml Output Total 700 ml Balance 2140 ml Weight (Pounds): 155 Weight (Ounces): 8.0 Weight (Calculated Kilograms): 70.516220 Constitutional: well-developed, well-nourished, other (more communicative today; multiple missing teeth; speech somewhat slurred) Respiratory: rhonchi (scattered) Cardiovascular: regular rate-rhythm; No JVD; S1 and S2, other (discomfort to ACW with mild palpation) Gastrointestional: audible bowel sounds Extremities: other (mild to mod LE swelling) Neurologic/Psychiatric: other (moves all limbs equally) Skin: other (multiple healing abrasions to arms and legs) Results/Procedures: Labs Laboratory Tests 08/16/21 16:30: Troponin I 0.053H 08/16/21 21:16: Troponin I 0.031H 08/17/21 04:49: White Blood Count 6.0, Red Blood Count 3.38L, Hemoglobin 8.3L, Hematocrit 27L, Mean Corpuscular Volume 81, Mean Corpuscular Hemoglobin 25, Mean Corpuscular Hemoglobin Concent 31L, Red Cell Distribution Width 17.1H, Platelet Count 317, Mean Platelet Volume 10.0, Immature Granulocyte % (Auto) 0, Neutrophils (%) (Auto) 65, Lymphocytes (%) (Auto) 23, Monocytes (%) (Auto) 9, Eosinophils (%) (Auto) 3, Basophils (%) (Auto) 1, Neutrophils # (Auto) 3.9, Lymphocytes # (Auto) 1.4, Monocytes # (Auto) 0.6, Eosinophils # (Auto) 0.2, Basophils # (Auto) 0.0, Immature Granulocyte # (Auto) 0.0, Sodium Level 133L, Potassium Level 4.9, Chloride Level 102, Carbon Dioxide Level 22, Anion Gap 9, Blood Urea Nitrogen 24H, Creatinine 1.38H, Estimat Glomerular Filtration Rate 39, BUN/Creatinine Ratio 17, Glucose Level 88, Calcium Level 7.9L, Triglycerides Level 75, Cholesterol Level 145, LDL Cholesterol Direct 66, VLDL Cholesterol 15, HDL Cholesterol 59 Microbiology 08/16/21 Blood Culture - Preliminary, Resulted No growth Laboratory Tests 08/16/21 08:40 08/17/21 04:49 A/P: Assessment: Chest pain of undetermined etiology - Cardiac cath of 02-22-[address] Jenkins showed only mild CAD. LVEF 30%. - Echo of 05-28-[address] Landis showed LVEF 50-55%. Grade 1 diastolic dysfunction. LA dilated. Mild MR. Aortic root dilatation 3.7cm. - MPI of 05-28-[address] Landis showed no evidence of ischemia or infarction. LVEF 55-60% - Musculoskeletal origing suspected: chest pain reproducible with palpation and deep breathing Chronically mildly elevated troponin since 2010 - Likely Type 2 [place] secondary to uncontrolled HTN and/or intermittent hypoxia due to drug use Methamphetamine use - cessation advised HTN - uncontrolled - no evidence of renal artery stenosis seen at time of cardiac cath on 02-22-[address] Jenkins Hep C (+) COPD Tobaccoism - cessation advised Non-compliance with medications/instructions Plan: BP has improved No further c/o CP Advised avoidance of all methamphetamines and street drugs and tobacco Management of seizure disorder is by the Medical Svce Stress the importance of cessation of street drugs and compliance with medications and f/u JAMES GENTILE MD FACP FAC CCDS Aug 17, 2021 15:27
== END 2021-08-17 15:50 | disposition home or self-care (01) ==
LOC: ER 08:22 → 4TH 12:30
PROVIDERS: ADMIT Internal Medicine; ATTEND Internal Medicine
DX: R07.89 Other chest pain (principal); I25.10 Atherosclerotic heart disease of native coronary artery without angina pectoris; J44.9 Chronic obstructive pulmonary disease, unspecified; J18.9 Pneumonia, unspecified organism; E78.00 Pure hypercholesterolemia, unspecified; K21.9 Gastro-esophageal reflux disease without esophagitis; K59.00 Constipation, unspecified; E11.22 Type 2 diabetes mellitus with diabetic chronic kidney disease; I12.9 Hypertensive chronic kidney disease with stage 1 through stage 4 chronic kidney disease, or unspecified chronic kidney disease; N18.9 Chronic kidney disease, unspecified; E78.5 Hyperlipidemia, unspecified; F41.9 Anxiety disorder, unspecified; R56.9 Unspecified convulsions; B19.20 Unspecified viral hepatitis C without hepatic coma; Z79.899 Other long term (current) drug therapy; Z99.81 Dependence on supplemental oxygen; Z87.891 Personal history of nicotine dependence; Z95.5 Presence of coronary angioplasty implant and graft; Z91.14 Patient's other noncompliance with medication regimen
CPT/HCPCS: 36600; 71045 ×2; 74177; 80048; 80053; 80061; 82550; 82805; 83735; 83874; 84484; 85025 ×2; 85610; 85730; 86141; 87040; 87636; 93005 ×2; 94640; 94760; 99285; G0378; 36415

== ENCOUNTER 2021-09-30 11:03 | Emergency (ER) | payer MEDICAID ==
[~2021-09-30] VITALS: Ht 160 cm; Wt 77.0 kg
[~2021-09-30 11:03] MED LIST changes: +CYCL10TA25; +CYCL10TA25 PO; -CYCL10TA9
[2021-09-30 11:28] LABS: BILIRUBIN,URINE NEGATIVE (NEGATIVE); CLARITY,URINE CLEAR; COLOR,URINE YELLOW; GLUCOSE, URINE (UA) TRACE (NEGATIVE); KETONES,URINE NEGATIVE (NEGATIVE); LEUKOCYTE ESTERASE ,URINE NEGATIVE (NEGATIVE); NITRITE,URINE NEGATIVE (NEGATIVE); PROTEIN,URINE NEGATIVE (NEGATIVE)
[2021-09-30 11:37] LABS: BACTERIA,URINE FEW /HPF; RBC,URINE RARE /HPF
[2021-09-30] MEDS ORDERED: PHENAZOPYRIDINE 100 MG (PYRIDIUM) TABLET PO STA (11:44)
[2021-09-30] MEDS ORDERED: KETOROLAC 60 MG/2 ML VIAL IM STA (11:44)
[2021-09-30] MEDS ORDERED: SULF1TAB38 PO (11:47)
[2021-09-30] MEDS ORDERED: PHEN-639 PO (11:47)
--- NOTE | 2021-09-30 11:49 | ED GU-Female ---
General Chief Complaint: - 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 Stated Complaint: BACK/ABD PAIN UTI SYMPTOMS Nursing Triage Note: PT TO RM 8 VIA WC. PT REPORTS BURNING W URINATION, FLANK PAIN, AND ABD PAIN X1 WEEK. PT MOANING AND BREATHING RAPIDLY DURING TRIAGE. A&OX4. History of Present Illness Date Seen by Provider: Sep 30, 2021 Time Seen by Provider: 11:20 Initial Comments 61-year-old female presents for UTI symptoms. She reports they have been present for approximately 1 week. She has not seen her primary care provider. Her skill worker thought she needed to be seen in the emergency department and admitted. She is unsure of the last UTI she had. She reports no methamphetamine use for approximately 1 month, however she is tweaking. She is afebrile and VS stable. Timing/Duration: week Location: suprapubic Radiation: none Activities at Onset: none Prior Genitourinary Problems: none Associated Symptoms: abdominal pain, dysuria; No fever/chills, No lower back pain, No nausea/vomiting (reports she vomited once, last evening. She ate this morning and no n/v/d); urinary frequency Allergies and Home Medications Allergies Coded Allergies: nitrous oxide (Verified Allergy, Unknown, 06/08/07) Patient Home Medication List Home Medication List Reviewed: Yes Acetaminophen (Tylenol Extra Strength) 500 Mg Tablet, 1,000 MG PO Q6H PRN for PAIN-MILD, (Reported) Entered as Reported by: ANTHONY RODRIGUEZ on 08/03/18 0904 Amlodipine Besylate (Amlodipine Besylate) 10 Mg Tablet, 5 MG PO BID, (Reported) Entered as Reported by: ANTHONY RODRIGUEZ on 07/07/19 1207 Carvedilol (Coreg) 25 Mg Tab, 25 MG PO BID, (Reported) Entered as Reported by: DAVID SANTANA on 11/29/19 1443 Divalproex Sodium (Depakote) 250 Mg Tablet.dr, 250 MG PO TID, (Reported) Entered as Reported by: DAVID SANTANA on 02/26/21 1036 Famotidine (Acid Cigar Making Supervisor (FAMOTIDINE)) 20 Mg Tablet, 20 MG PO BID PRN for HEARTBURN, (Reported) Entered as Reported by: DAVID SANTANA on 11/29/19 1444 Hydralazine HCl (Hydralazine HCl) 100 Mg Tablet, 100 MG PO TID, (Reported) Entered as Reported by: DAVID SANTANA on 11/29/19 1441 Levetiracetam (Levetiracetam) 500 Mg Tablet, 1,000 MG PO BID, (Reported) Entered as Reported by: DAVID SANTANA on 02/26/21 1036 Phenazopyridine HCl (Pyridium) 100 Mg Tablet, 100 MG PO Q8H PRN for SPASMS Prescribed by: OCTAVIA KINNEY on 09/30/21 1147 Phenobarbital (Phenobarbital) 64.8 Mg Tablet, 129.6 MG PO BID, (Reported) Entered as Reported by: DAVID SANTANA on 11/29/19 1441 Sulfamethoxazole/Trimethoprim (Bactrim Ds Tablet) 1 Each Tablet, 1 EACH PO BID Prescribed by: OCTAVIA KINNEY on 09/30/21 1147 Review of Systems Review of Systems Constitutional: no symptoms reported, see HPI Genitourinary: see HPI, burning; denies discharge; dysuria; denies frequency, denies flank pain, denies hematuria, denies incontinence; pain, urgency All Other Systemes Reviewed Negative Unless Noted: Yes Past Pqwyzoo-Cvpdwv-[id number] Hx Patient Social History Tobacco Use?: No Use of E-Cig and/or Vaping dev: No Substance use?: Yes Substance type: Methamphetamine Additional substance use comme: HX OF METH USE. PT REPORTS COUPLE MONTHS SX LAST USE. Alcohol Use?: No Immunizations Up To Date Tetanus Booster (TDap): Less than 5yrs PED Vaccines UTD: No Influenza Vaccine Up-to-Date: Yes; Up-to-Date First/Initial COVID19 Vaccinat: NONE Second COVID19 Vaccination Deacon: NONE Third COVID19 Vaccination Date: NONE COVID19 Vaccine Life Enrichment Specialist: NONE Seasonal Allergies Seasonal Allergies: No Past Medical History Surgery/Hospitalization HX: L POWER PORT Surgeries: Yes (SEE BELOW) Coronary Stent Respiratory: Yes (O2 AT 4L/NC CONTINUOUSLY;HX OF RESP FAILURE W/INTUBATION) Pneumonia Currently Using CPAP: No Currently Using BIPAP: No Cardiac: Yes High Cholesterol, Hypertension Neurological: Yes Seizure Disorder, Stroke 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 Disorders: No Female 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 History: Hysterectomy, Menopausal Sexually Transmitted Disease: No HIV/AIDS: No Genitourinary: Yes Kidney Infection, Bladder Infection, Kidney Stones, Renal Failure, UTI-Chronic Gastrointestinal: Yes Abdominal Hernia, Gastroesophageal Reflux, Pancreatitis, Hepatitis Musculoskeletal: Yes (CHRONIC NECK AND BACK PAIN; POOR AMBULATION) Arthritis, Chronic Back Pain Endocrine: Yes (HGB AIC WAS 6.5 ON 12/23/18) Diabetes, Non-Insulin dep HEENT: Yes (POOR DENTITION) Loss of Vision: Denies Hearing Impairment: Denies Cancer: Yes Cervical Did You Recieve Any Treatments: Yes What Type of Treatment Did You: Surgical Intervention Psychosocial: Yes (POLYSUBSTANCE ABUSE) Anxiety, Bipolar, Depression Integumentary: No Blood Disorders: Yes (ANEMIA OF CHRONIC DISEASE) Adverse Reaction/Blood Tranf: No Family Medical History Reviewed Nursing Family Hx Abdominal aortic aneurysm 03 FATHER Alcoholism 03 FATHER 03 MOTHER 09 SISTER 09 SISTER Cancer 03 FATHER Cataract 03 FATHER 03 MOTHER Chest pain 03 MOTHER Family history: Diabetes mellitus 03 MOTHER Family history: Hypertension 03 MOTHER Family history: Thyroid disorder 03 MOTHER Headache 09 SISTER Heart disease 03 MOTHER History of drug abuse 03 FATHER 09 SISTER Myocardial infarction 03 MOTHER No Family History of: [place]'s disease Aphasia Cancer of colon Congenital heart disease Congestive heart failure Cystic fibrosis Dementia Dysphagia Family history: Allergy Family history: Alzheimer's disease Family history: Arthritis Family history: Asthma Family history: Breast disease Family history: Cardiovascular disease Family history: Coronary thrombosis Family history: Gastrointestinal disease Family history: Glaucoma Family history: Osteoporosis Hearing loss Hereditary disease History of - anemia History of - disorder History of - respiratory disease Human immunodeficiency virus (HIV) seropositivity Hypercholesterolemia Infertile Kidney disease Malignant neoplasm of lung Parkinson's disease Prostate cancer Psychotic disorder Seizure disorder Stroke Tuberculosis Visual impairment AAA, Heart Disease, Diabetes -SOCIAL HISTORY: -ETOH -OCCASIONAL USE -DRUGS-EXTENSIVE HISTORY OF IV METH USE, THC USE -SMOKES AT LEAST 1 PPD PAST SURGICAL HISTORY: -MULTIPLE CENTRAL LINES/PICC LINES -PORT LEFT CHEST PRESENT 07/29/20 -DIAGNOSTIC LAPAROSCOPY/LAPAROTOMY -MULTIPLE CYSTOSCOPIES WITH RIGHT URETERAL STENT PLACED AND LATER REMOVED -I&D OF ABSCESSES -MULTIPLE CARDIAC CATHS--NO INTERVENTION -HYSTERECTOMY WITH LATER BILATERAL SALPINGO-OOPHORECTOMY -UMBILICAL HERNIA REPAIR WITH MESH -BILATERAL MYRINGOTOMY TUBES -BLADDER SUSPENSION -MULTIPLE LEFT LEG SURGERIES DUE TO TRAUMA A CHILD -EGD -LEFT MASTOIDECTOMY NOTED ON CT 08/26/19--PT UNAWARE OF THIS PAST MEDICAL HISTORY: -HAS BEEN INTUBATED FOR RESPIRATORY FAILURE--LAST TIME WAS 08/26/19 -WEARS O2 AT 4L/NC CONTINUOUSLY -NON-ISCHEMIC CARDIOMYOPATHY -HAS HAD EXTERNAL DEFIBRILLATOR IN PAST -CHRONIC CHEST PAIN COMPLAINTS, WITH ELEVATED TROPONIN MULTIPLE TIMES AND DX WITH NSTEMI 02/2018--LAST CARDIAC CATH 02/2018--SHOWED MILD CAD/NO INTERVENTION LAST LEXISCAN STRESS TEST WAS NORMAL 07/12/19. LAST ECHOCARDIOGRAM 08/20/19--NON-ISCHEMIC CARDIOMYOPATHY WITH EF 55-65% -MITRAL REGURGITATION -TRICUSPID VALVE VEGETATIONS 2013 -CHF -MULTIPLE CARDIAC CATHS-NO INTERVENTION -POOR VENOUS ACCESS -TRAUMATIC BRAIN INJURY CHILD; -CVA WITH LEFT SIDED WEAKNESS -POOR BALANCE--IS SUPPOSED TO USE A WALKER -MULTIPLE EPISODES OF "ALTERED MENTAL STATUS" -MULTIPLE HEAD INJURIES DUE TO REPORTED DOMESTIC ABUSE -CHRONIC RENAL FAILURE--NO DIALYSIS -CHRONIC ABDOMINAL PAIN COMPLAINTS; -GASTRITIS -HEPATITIS C--NO TREATMENT -CHRONIC NECK AND BACK PAIN; POOR AMBULATION -ANEMIA OF CHRONIC DISEASE -LONG HISTORY OF NON-COMPLIANCE IN ALL ASPECTS OF CARE Physical Exam Vital Signs Vital Signs - First Documented 09/30/21 11:08 Temp 36.5 Pulse 89 Resp 32 B/P (MAP) 175/104 (127) Pulse Ox 98 O2 Delivery Room Air Capillary Refill : Less Than 3 Seconds Height, Weight, BMI Height: 5'3.00" Weight: 155lbs. 8.0oz. [id number]; 30.00 BMI Method:Stated General Appearance: WD/WN, mild distress (secondary to lower abd pressure, she reports improvement after urinating. ) Neck: non-tender, full range of motion, supple, normal inspection Cardiovascular: normal peripheral pulses, regular rate, rhythm Respiratory: chest non-tender, lungs clear, normal breath sounds Gastrointestinal: normal bowel sounds, non tender, soft Extremities: normal range of motion, non-tender, normal inspection Neurologic/Psychiatric: no motor/sensory deficits, alert, normal mood/affect, oriented x 3 Skin: normal color, warm/dry Procedures/Interventions Date of ETT Placement: Sep 17, 2019 Time of ETT Placement: 1744 Progress/Results/Core Measures Suspected Sepsis SIRS Temperature: Pulse: 89 Respiratory Rate: 32 Blood Pressure 175 /104 Mean: 127 Results/Orders Lab Results Laboratory Tests Test 09/30/21 11:15 Range/Units Urine Color YELLOW Urine Clarity CLEAR Urine pH 6.0 5-9 Urine Specific [place] 1.010 L 1.016-1.022 Urine Protein NEGATIVE NEGATIVE Urine Glucose (UA) TRACE H NEGATIVE Urine Ketones NEGATIVE NEGATIVE Urine Nitrite NEGATIVE NEGATIVE Urine Bilirubin NEGATIVE NEGATIVE Urine Urobilinogen 0.2 < = 1.0 MG/DL Urine Leukocyte Esterase NEGATIVE NEGATIVE Urine RBC (Auto) NEGATIVE NEGATIVE Urine RBC RARE /HPF Urine WBC 2-5 /HPF Urine Squamous Epithelial Cells 2-5 /HPF Urine Crystals NONE /LPF Urine Bacteria FEW H /HPF Urine Casts NONE /LPF Urine Mucus NEGATIVE /LPF Urine Culture Indicated YES Urine Opiates Screen NEGATIVE NEGATIVE Urine Oxycodone Screen NEGATIVE NEGATIVE Urine Methadone Screen NEGATIVE NEGATIVE Urine Propoxyphene Screen NEGATIVE NEGATIVE Urine Barbiturates Screen POSITIVE H NEGATIVE Ur Tricyclic Antidepressants Screen NEGATIVE NEGATIVE Urine Phencyclidine Screen NEGATIVE NEGATIVE Urine Amphetamines Screen POSITIVE H NEGATIVE Urine Methamphetamines Screen POSITIVE H NEGATIVE Urine Benzodiazepines Screen NEGATIVE NEGATIVE Urine Cocaine Screen NEGATIVE NEGATIVE Urine Cannabinoids Screen NEGATIVE NEGATIVE My Orders Orders - NIRMAL,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 Ua Culture If Indicated (09/30/21 11:09) Drug Screen Stat (Urine) (09/30/21 11:37) Urine Culture (09/30/21 11:15) Phenazopyridine Tablet (Pyridium Tablet) (09/30/21 11:44) Ketorolac Injection (Toradol Injection) (09/30/21 11:44) Vital Signs/I&O 09/30/21 11:08 Temp 36.5 Pulse 89 Resp 32 B/P (MAP) 175/104 (127) Pulse Ox 98 O2 Delivery Room Air Capillary Refill : Less Than 3 Seconds Blood Pressure Mean: 127 Departure Impression Primary Impression: Urinary tract infection Qualified Codes: N30.00 - Acute cystitis without hematuria Disposition: HOME, SELF-CARE Condition: Improved Departure-Patient Inst. Decision time for Depature: 11:40 Referrals: [facility] (PCP/Family) Primary Care Physician Patient Instructions: Urinary Tract Infection, Adult (DC) Add. Discharge Instructions: Increase water intake, 16 ounces every 2 hours while awake. Alternate between Tylenol 650 mg and ibuprofen 600 mg every 4 hours for pain. Take antibiotics as prescribed. Use the Pyridium for bladder spasms, 1 tablet every 8 hours as needed. Follow-up at [facility] with your primary care provider or walk-in care, if symptoms are not improving or worsen. Return to the emergency department for new, urgent healthcare needs. All discharge instructions reviewed with patient and/or family. Voiced understanding. Scripts Phenazopyridine HCl (Pyridium) 100 Mg Tablet 100 MG PO Q8H PRN for SPASMS, #6 TAB 0 Refills Prov: OCTAVIA KINNEY 09/30/21 Sulfamethoxazole/Trimethoprim (Bactrim Ds Tablet) 1 Each Tablet 1 EACH PO BID for 7 Days, #14 TAB 0 Refills Prov: OCTAVIA KINNEY 09/30/21 OCTAVIA KINNEY Sep 30, 2021 11:49
[2021-09-30 11:53] LABS: AMPHETAMINE SCREEN, URINE POSITIVE (NEGATIVE); BARBITURATE SCREEN URINE POSITIVE (NEGATIVE); BENZODIAZEPINES SCREEN URINE NEGATIVE (NEGATIVE); CANNABINOID SCREEN, URINE NEGATIVE (NEGATIVE); COCAINE SCREEN URINE NEGATIVE (NEGATIVE); METHADONE STAT NEGATIVE (NEGATIVE); METHAMPHETAMINE SCREEN URINE S POSITIVE (NEGATIVE); OPIATE SCREEN URINE NEGATIVE (NEGATIVE); OXYCODONE STAT NEGATIVE (NEGATIVE); PROPOXYPHENE STAT NEGATIVE (NEGATIVE); TRICYCLIC ANTIDEPRESSANTS SCRE NEGATIVE (NEGATIVE)
[2021-09-30 12:13] VITALS: BP 134/87
== END 2021-09-30 12:13 | disposition home or self-care (01) ==
LOC: EDUNIT# 11:03 → ER 11:05
DX: N39.0 Urinary tract infection, site not specified (principal); I10 Essential (primary) hypertension; G40.909 Epilepsy, unspecified, not intractable, without status epilepticus; F31.9 Bipolar disorder, unspecified; E11.9 Type 2 diabetes mellitus without complications; K21.9 Gastro-esophageal reflux disease without esophagitis; Z86.73 Personal history of transient ischemic attack (TIA), and cerebral infarction without residual deficits; Z79.899 Other long term (current) drug therapy
CPT/HCPCS: 80306; 81000; 87088; 99284

== ENCOUNTER 2021-10-25 08:29 | Emergency (ER) | payer MEDICAID ==
[~2021-10-25] VITALS: Ht 160 cm; Wt 77.0 kg
[~2021-10-25 08:29] MED LIST changes: +PHEN-639 PO
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
[2021-10-25] MEDS ORDERED: fentaNYL INJ 100 MCG/2 ML AMP IVP ONE ×2 (09:30→11:00)
[2021-10-25] MEDS ORDERED: NS IV 1000 ML 1,000 ML IV SCH (09:30)
[2021-10-25] MEDS ORDERED: ONDANSETRON 4 MG/2 ML (SDV) Z0FRAN IVP ONE (09:30)
[2021-10-25 09:40] LABS: BASOPHILS % (AUTO) 0 % (0-10); EOSINOPHILS # (AUTO) 0.1 10^3/uL (0.0-0.3); EOSINOPHILS % (AUTO) 2 % (0-10); HEMATOCRIT 33 % (35-52); HEMOGLOBIN 10.2 g/dL (11.5-16.0); LYMPHOCYTES % (AUTO) 16 % (12-44); MEAN CORPUSCULAR HEMOGLOBIN 26 pg (25-34); MEAN CORPUSCULAR HGB CONC 31 g/dL (32-36); MEAN CORPUSCULAR VOLUME 83 fL (80-99); MEAN PLATELET VOLUME 10.7 fL (9.0-12.2); MONOCYTES # (AUTO) 0.4 10^3/uL (0.0-1.0); MONOCYTES % (AUTO) 7 % (0-12); NEUTROPHILS # (AUTO) 4.4 10^3/uL (1.8-7.8); NEUTROPHILS % (AUTO) 74 % (42-75); PLATELET COUNT 317 10^3/uL (130-400); WHITE BLOOD COUNT 5.9 10^3/uL (4.3-11.0)
[2021-10-25 09:53] LABS: ALBUMIN 3.6 GM/DL (3.2-4.5); POTASSIUM 4.6 MMOL/L (3.6-5.0)
[2021-10-25 09:54] LABS: CALCIUM 8.2 MG/DL (8.5-10.1)
[2021-10-25 09:56] LABS: TOTAL PROTEIN 7.3 GM/DL (6.4-8.2)
[2021-10-25 09:57] LABS: BILIRUBIN,TOTAL 0.2 MG/DL (0.1-1.0)
[2021-10-25 09:59] LABS: CREATININE SERUM 1.67 MG/DL (0.60-1.30)
--- NOTE | 2021-10-25 10:11 | Diagnostic Imaging Report ---
PROCEDURE: CT abdomen and pelvis without contrast. TECHNIQUE: Multiple contiguous axial images were obtained through the abdomen and pelvis without the use of intravenous contrast. Auto Exposure Controls were utilized during the CT exam to meet ALARA standards for radiation dose reduction. INDICATION: Abdominal pain. COMPARISON: 08/16/2021. FINDINGS: The heart is unremarkable. Subsegmental atelectasis is seen in the lung bases. Atrophy of the right kidney is visualized and appears similar to the prior exam. There is nodular contour of both kidneys which may represent lobulation versus prior sequelae of ischemia or infection. The urinary bladder is mildly distended. No evidence of hydronephrosis or obstructing calculi. The liver, spleen, pancreas, and adrenal glands have a normal appearance. There is no pathologically enlarged mesenteric or retroperitoneal adenopathy. Fluid-filled nondilated loops of small bowel are seen in the abdomen and pelvis. No evidence of bowel obstruction. There is no free fluid or free air. No acute osseous abnormalities. There is no free air, loculated collection, or adenopathy in the pelvis. IMPRESSION: 1. Fluid-filled nondilated loops of small bowel in the abdomen and pelvis, suggestive of enteritis. No bowel obstruction, free fluid, or free air. 2. Stable appearance of the kidneys with stable atrophy of the right kidney. Dictated by: Dictated on workstation # [id number]
--- NOTE | 2021-10-25 10:15 | Diagnostic Imaging Report ---
INDICATION: Shortness of breath and chronic cough PA chest obtained at 1011 a.m. and compared to 08/17/2021. Heart and mediastinal silhouette are normal in appearance. There is COPD change with hyperinflation. There are chronic appearing increased interstitial markings. There is no focal infiltrate or pneumothorax or pleural fluid. Port-A-Cath is stable. IMPRESSION: COPD changes and chronic interstitial prominence. No acute infiltrate or pleural fluid. Dictated by: Dictated on workstation # [id number]
[2021-10-25] MEDS ORDERED: ONDA4TAB11 PO (10:50)
[2021-10-25] MEDS ORDERED: DICY20TA PO (10:50)
[2021-10-25 14:06] VITALS: BP 147/98
== END 2021-10-25 14:06 | disposition home or self-care (01) ==
LOC: EDUNIT# 08:29 → ER 08:31
DX: K52.9 Noninfective gastroenteritis and colitis, unspecified (principal); R06.4 Hyperventilation; I10 Essential (primary) hypertension; G40.909 Epilepsy, unspecified, not intractable, without status epilepticus; E11.9 Type 2 diabetes mellitus without complications; K21.9 Gastro-esophageal reflux disease without esophagitis; F41.9 Anxiety disorder, unspecified; F31.9 Bipolar disorder, unspecified; Z86.73 Personal history of transient ischemic attack (TIA), and cerebral infarction without residual deficits; Z79.899 Other long term (current) drug therapy
CPT/HCPCS: 36415; 71045; 74176; 80053; 83690; 85025

== ENCOUNTER 2021-11-15 17:24 | Emergency (ER) | payer MEDICAID ==
[~2021-11-15] VITALS: Ht 160 cm; Wt 74.8 kg
[~2021-11-15 17:24] MED LIST changes: +DICY20TA PO
--- NOTE | 2021-11-15 17:44 | ED General ---
General Stated Complaint: AMS Source of Information: Patient Exam Limitations: No Limitations (NEERAJ VILLA APRN) History of Present Illness Date Seen by Provider: Nov 15, 2021 Time Seen by Provider: 17:43 Initial Comments To ER by [facility] with reports that she is seeing snakes and she is having right-sided abdominal pain. She last smoked meth yesterday morning. She states the pain in her kidney is "nothing new". Timing/Duration: 1-2 Days Severity: Moderate (NEERAJ VILLA APRN) Allergies and Home Medications Allergies Coded Allergies: nitrous oxide (Verified Allergy, Unknown, 06/08/07) Patient Home Medication List Home Medication List Reviewed: Yes (NEERAJ VILLA APRN) Acetaminophen (Tylenol Extra Strength) 500 Mg Tablet, 1,000 MG PO Q6H PRN for PAIN-MILD, (Reported) Entered as Reported by: ANTHONY RODRIGUEZ on 08/03/18 0904 Amlodipine Besylate (Amlodipine Besylate) 10 Mg Tablet, 5 MG PO BID, (Reported) Entered as Reported by: ANTHONY RODRIGUEZ on 07/07/19 1207 Carvedilol (Coreg) 25 Mg Tab, 25 MG PO BID, (Reported) Entered as Reported by: DAVID SANTANA on 11/29/19 1443 Dicyclomine HCl (Dicyclomine HCl) 20 Mg Tablet, 20 MG PO Q6H PRN for abdominal cramping Prescribed by: ADEBAYO FATIMA on 10/25/21 1050 Divalproex Sodium (Depakote) 250 Mg Tablet.dr, 250 MG PO TID, (Reported) Entered as Reported by: DAVID SANTANA on 02/26/21 1036 Famotidine (Acid Lecturer Of Portuguese (FAMOTIDINE)) 20 Mg Tablet, 20 MG PO BID PRN for HEARTBURN, (Reported) Entered as Reported by: DAVID SANTANA on 11/29/19 1444 Hydralazine HCl (Hydralazine HCl) 100 Mg Tablet, 100 MG PO TID, (Reported) Entered as Reported by: DAVID SANTANA on 11/29/19 1441 Levetiracetam (Levetiracetam) 500 Mg Tablet, 1,000 MG PO BID, (Reported) Entered as Reported by: DAVID SANTANA on 02/26/21 1036 Ondansetron (Ondansetron Odt) 4 Mg Tab.rapdis, 4 MG PO Q8H PRN for nausea Prescribed by: ADEBAYO FATIMA on 10/25/21 1050 Phenazopyridine HCl (Pyridium) 100 Mg Tablet, 100 MG PO Q8H PRN for SPASMS Prescribed by: OCTAVIA KINNEY on 09/30/21 1147 Phenobarbital (Phenobarbital) 64.8 Mg Tablet, 129.6 MG PO BID, (Reported) Entered as Reported by: DAVID SANTANA on 11/29/19 1441 Sulfamethoxazole/Trimethoprim (Bactrim Ds Tablet) 1 Each Tablet, 1 EACH PO BID Prescribed by: OCTAVIA KINNEY on 09/30/21 1147 Review of Systems Review of Systems Constitutional: see HPI EENTM: see HPI Respiratory: no symptoms reported Cardiovascular: no symptoms reported Gastrointestinal: abdominal pain Genitourinary: no symptoms reported Musculoskeletal: no symptoms reported Skin: no symptoms reported Psychiatric/Neurological: No Symptoms Reported (NEERAJ VILLA APRN) Past Bwdynid-Olnkfc-Imamzu Hx Immunizations Up To Date Tetanus Booster (TDap): Less than 5yrs PED Vaccines UTD: No First/Initial COVID19 Vaccinat: NONE Second COVID19 Vaccination Deacon: NONE Third COVID19 Vaccination Date: NONE (NEERAJ VILLA APRN) Seasonal Allergies Seasonal Allergies: No (NEERAJ VILLA APRN) Past Medical History Surgery/Hospitalization HX: L POWER PORT Surgeries: Yes (SEE BELOW) Coronary Stent Respiratory: Yes (O2 AT 4L/NC CONTINUOUSLY;HX OF RESP FAILURE W/INTUBATION) Pneumonia Currently Using CPAP: No Currently Using BIPAP: No Cardiac: Yes High Cholesterol, Hypertension Neurological: Yes Seizure Disorder, Stroke 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 Disorders: No Female 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, 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 Sexually Transmitted Disease: No HIV/AIDS: No Genitourinary: Yes Kidney Infection, Bladder Infection, Kidney Stones, Renal Failure, UTI-Chronic Gastrointestinal: Yes Abdominal Hernia, Gastroesophageal Reflux, Pancreatitis, Hepatitis Musculoskeletal: Yes (CHRONIC NECK AND BACK PAIN; POOR AMBULATION) Arthritis, Chronic Back Pain Endocrine: Yes (HGB AIC WAS 6.5 ON 12/23/18) Diabetes, Non-Insulin dep HEENT: Yes (POOR DENTITION) Loss of Vision: Denies Hearing Impairment: Denies Cancer: Yes Cervical Did You Recieve Any Treatments: Yes What Type of Treatment Did You: Surgical Intervention Psychosocial: Yes (POLYSUBSTANCE ABUSE) Anxiety, Bipolar, Depression Integumentary: No Blood Disorders: Yes (ANEMIA OF CHRONIC DISEASE) Adverse Reaction/Blood Tranf: No (NEERAJ VILLA APRN) Family Medical History Abdominal aortic aneurysm 03 FATHER Alcoholism 03 FATHER 03 MOTHER 09 SISTER 09 SISTER Cancer 03 FATHER Cataract 03 FATHER 03 MOTHER Chest pain 03 MOTHER Family history: Diabetes mellitus 03 MOTHER Family history: Hypertension 03 MOTHER Family history: Thyroid disorder 03 MOTHER Headache 09 SISTER Heart disease 03 MOTHER History of drug abuse 03 FATHER 09 SISTER Myocardial infarction 03 MOTHER No Family History of: Isael's disease Aphasia Cancer of colon Congenital heart disease Congestive heart failure Cystic fibrosis Dementia Dysphagia Family history: Allergy Family history: Alzheimer's disease Family history: Arthritis Family history: Asthma Family history: Breast disease Family history: Cardiovascular disease Family history: Coronary thrombosis Family history: Gastrointestinal disease Family history: Glaucoma Family history: Osteoporosis Hearing loss Hereditary disease History of - anemia History of - disorder History of - respiratory disease Human immunodeficiency virus (HIV) seropositivity Hypercholesterolemia Infertile Kidney disease Malignant neoplasm of lung Parkinson's disease Prostate cancer Psychotic disorder Seizure disorder Stroke Tuberculosis Visual impairment AAA, Heart Disease, Diabetes -SOCIAL HISTORY: -ETOH -OCCASIONAL USE -DRUGS-EXTENSIVE HISTORY OF IV METH USE, THC USE -SMOKES AT LEAST 1 PPD PAST SURGICAL HISTORY: -MULTIPLE CENTRAL LINES/PICC LINES -PORT LEFT CHEST PRESENT 07/29/20 -DIAGNOSTIC LAPAROSCOPY/LAPAROTOMY -MULTIPLE CYSTOSCOPIES WITH RIGHT URETERAL STENT PLACED AND LATER REMOVED -I&D OF ABSCESSES -MULTIPLE CARDIAC CATHS--NO INTERVENTION -HYSTERECTOMY WITH LATER BILATERAL SALPINGO-OOPHORECTOMY -UMBILICAL HERNIA REPAIR WITH MESH -BILATERAL MYRINGOTOMY TUBES -BLADDER SUSPENSION -MULTIPLE LEFT LEG SURGERIES DUE TO TRAUMA A CHILD -EGD -LEFT MASTOIDECTOMY NOTED ON CT 08/26/19--PT UNAWARE OF THIS PAST MEDICAL HISTORY: -HAS BEEN INTUBATED FOR RESPIRATORY FAILURE--LAST TIME WAS 08/26/19 -WEARS O2 AT 4L/NC CONTINUOUSLY -NON-ISCHEMIC CARDIOMYOPATHY -HAS HAD EXTERNAL DEFIBRILLATOR IN PAST -CHRONIC CHEST PAIN COMPLAINTS, WITH ELEVATED TROPONIN MULTIPLE TIMES AND DX WITH NSTEMI 02/2018--LAST CARDIAC CATH 02/2018--SHOWED MILD CAD/NO INTERVENTION LAST LEXISCAN STRESS TEST WAS NORMAL 07/12/19. LAST ECHOCARDIOGRAM 08/20/19--NON-ISCHEMIC CARDIOMYOPATHY WITH EF 55-65% -MITRAL REGURGITATION -TRICUSPID VALVE VEGETATIONS 2013 -CHF -MULTIPLE CARDIAC CATHS-NO INTERVENTION -POOR VENOUS ACCESS -TRAUMATIC BRAIN INJURY CHILD; -CVA WITH LEFT SIDED WEAKNESS -POOR BALANCE--IS SUPPOSED TO USE A WALKER -MULTIPLE EPISODES OF "ALTERED MENTAL STATUS" -MULTIPLE HEAD INJURIES DUE TO REPORTED DOMESTIC ABUSE -CHRONIC RENAL FAILURE--NO DIALYSIS -CHRONIC ABDOMINAL PAIN COMPLAINTS; -GASTRITIS -HEPATITIS C--NO TREATMENT -CHRONIC NECK AND BACK PAIN; POOR AMBULATION -ANEMIA OF CHRONIC DISEASE -LONG HISTORY OF NON-COMPLIANCE IN ALL ASPECTS OF CARE (NEERAJ VILLA APRN) Physical Exam Vital Signs Vital Signs - First Documented 11/15/21 17:25 Temp 37.2 Pulse 81 Resp 20 B/P (MAP) 120/66 (84) Pulse Ox 94 O2 Delivery Room Air (HOLA BRIGHT DO) Vital Signs Capillary Refill : (NEERAJ VILLA APRN) Height, Weight, BMI Height: 5'3.00" Weight: 155lbs. 8.0oz. 70.335203av; 30.00 BMI Method:Stated General Appearance: No Apparent Distress, WD/WN, Other (Dystonic facial movements) Eyes: Bilateral Eye Normal Inspection, Bilateral Eye PERRL, Bilateral Eye EOMI Neck: Full Range of Motion, Normal Inspection Respiratory: No Accessory Muscle Use, No Respiratory Distress Gastrointestinal: Normal Bowel Sounds, Soft, Tenderness Extremity: Normal Capillary Refill, Normal Inspection Neurologic/Psychiatric: Alert, Oriented x3 Skin: Normal Color, Warm/Dry (NEERAJ VILLA APRN) Procedures/Interventions Date of ETT Placement: Sep 17, 2019 Time of ETT Placement: 174 (NEERAJ VILLA APRN) Progress/Results/Core Measures Suspected Sepsis SIRS Temperature: Pulse: Respiratory Rate: Laboratory Tests 11/15/21 18:16: White Blood Count 5.0 Blood Pressure / Mean: Laboratory Tests 11/15/21 18:16: Creatinine 2.69H, Platelet Count 321, Total Bilirubin 0.4 (NEERAJ VILLA APRN) Results/Orders Lab Results Laboratory Tests Test 11/15/21 17:36 11/15/21 18:16 Range/Units Urine Color YELLOW Urine Clarity CLEAR Urine pH 6.0 5-9 Urine Specific [place] 1.020 1.016-1.022 Urine Protein TRACE H NEGATIVE Urine Glucose (UA) NEGATIVE NEGATIVE Urine Ketones TRACE H NEGATIVE Urine Nitrite NEGATIVE NEGATIVE Urine Bilirubin NEGATIVE NEGATIVE Urine Urobilinogen 0.2 < = 1.0 MG/DL Urine Leukocyte Esterase NEGATIVE NEGATIVE Urine RBC (Auto) NEGATIVE NEGATIVE Urine RBC RARE /HPF Urine WBC RARE /HPF Urine Squamous Epithelial Cells 10-25 H /HPF Urine Crystals NONE /LPF Urine Bacteria TRACE /HPF Urine Casts NONE /LPF Urine Mucus NEGATIVE /LPF Urine Other 2-5 TRANS EPIS /HPF Urine Culture Indicated NO Urine Opiates Screen NEGATIVE NEGATIVE Urine Oxycodone Screen NEGATIVE NEGATIVE Urine Methadone Screen NEGATIVE NEGATIVE Urine Propoxyphene Screen NEGATIVE NEGATIVE Urine Barbiturates Screen NEGATIVE NEGATIVE Ur Tricyclic Antidepressants Screen NEGATIVE NEGATIVE Urine Phencyclidine Screen NEGATIVE NEGATIVE Urine Amphetamines Screen POSITIVE H NEGATIVE Urine Methamphetamines Screen POSITIVE H NEGATIVE Urine Benzodiazepines Screen NEGATIVE NEGATIVE Urine Cocaine Screen NEGATIVE NEGATIVE Urine Cannabinoids Screen NEGATIVE NEGATIVE White Blood Count 5.0 4.3-11.0 10^3/uL Red Blood Count 3.57 L 3.80-5.11 10^6/uL Hemoglobin 9.2 L 11.5-16.0 g/dL Hematocrit 30 L 35-52 % Mean Corpuscular Volume 83 80-99 fL Mean Corpuscular Hemoglobin 26 25-34 pg Mean Corpuscular Hemoglobin Concent 31 L 32-36 g/dL Red Cell Distribution Width 18.6 H 10.0-14.5 % Platelet Count 321 130-400 10^3/uL Mean Platelet Volume 11.0 9.0-12.2 fL Immature Granulocyte % (Auto) 0 % Neutrophils (%) (Auto) 69 42-75 % Lymphocytes (%) (Auto) 19 12-44 % Monocytes (%) (Auto) 11 0-12 % Eosinophils (%) (Auto) 1 0-10 % Basophils (%) (Auto) 0 0-10 % Neutrophils # (Auto) 3.4 1.8-7.8 10^3/uL Lymphocytes # (Auto) 0.9 L 1.0-4.0 10^3/uL Monocytes # (Auto) 0.5 0.0-1.0 10^3/uL Eosinophils # (Auto) 0.1 0.0-0.3 10^3/uL Basophils # (Auto) 0.0 0.0-0.1 10^3/uL Immature Granulocyte # (Auto) 0.0 0.0-0.1 10^3/uL Sodium Level 141 135-145 MMOL/L Potassium Level 3.6 3.6-5.0 MMOL/L Chloride Level 109 H 98-107 MMOL/L Carbon Dioxide Level 17 L 21-32 MMOL/L Anion Gap 15 H 5-14 MMOL/L Blood Urea Nitrogen 74 H 7-18 MG/DL Creatinine 2.69 H 0.60-1.30 MG/DL Estimat Glomerular Filtration Rate 20 BUN/Creatinine Ratio 28 Glucose Level 77 70-105 MG/DL Calcium Level 8.0 L 8.5-10.1 MG/DL Corrected Calcium 8.3 L 8.5-10.1 MG/DL Total Bilirubin 0.4 0.1-1.0 MG/DL Aspartate Amino Transf (AST/SGOT) 18 5-34 U/L Alanine Aminotransferase (ALT/SGPT) 24 0-55 U/L Alkaline Phosphatase 76 40-136 U/L Total Protein 7.2 6.4-8.2 GM/DL Albumin 3.6 3.2-4.5 GM/DL (KAILA,HOLA K DO) Medications Given in ED Current Medications Medications Dose Ordered Sig/Tad Route Start Time Stop Time Status Last Admin Dose Admin Lorazepam 1 mg ONCE ONCE IVP 11/15/21 17:45 11/15/21 17:46 DC 11/15/21 18:13 1 MG (KAILA,HOLA K DO) Vital Signs/I&O 11/15/21 11/15/21 17:25 21:13 Temp 37.2 Pulse 81 83 Resp 20 16 B/P (MAP) 120/66 (84) 146/79 Pulse Ox 94 93 O2 Delivery Room Air Room Air 11/16/21 00:00 Intake Total 2000 ml Balance 2000 ml (KAILA,HOLA K DO) Vital Signs/I&O Capillary Refill : (NEERAJ VILLA APRN) Departure Communication (Admissions) Family Conversation NAME: KEREN MAX [facility] REC#: [id number] PT STATUS: REG ER : 1960 PHYSICIAN: NEERAJ VILLA APRN ADMIT DATE: 11/15/21/ER Draft Date of Exam:11/15/21 CT ABDOMEN/PELVIS WO PROCEDURE: CT abdomen and pelvis without contrast. TECHNIQUE: Multiple contiguous axial images were obtained through the abdomen and pelvis without the use of intravenous contrast. Auto Exposure Controls were utilized during the CT exam to meet ALARA standards for radiation dose reduction. INDICATION: Altered mental status. COMPARISON: 10/25/2021. FINDINGS: Included portions of the lung bases are clear. CT ABDOMEN: Large amount of air and stool is noted within the rectum. Mild air and stool is also present scattered throughout the colon. Small bowel loops are nondistended. Normal appendix cannot be adequately identified, but there is no pericecal inflammation. There is asymmetric moderate atrophy of the right kidney. Note is also made of prominent lobulated appearance to both kidneys. Findings could be on the basis of persistent lobulation. Findings could also relate to history of previous infarct or infection. The adrenal glands, spleen, pancreas and liver have an unremarkable noncontrast CT appearance. There is no loculated fluid collection, free fluid or free air within the abdomen. No abnormal mesenteric or retroperitoneal adenopathy is identified. Osseous structures show no acute abnormalities. CT PELVIS: Urinary bladder is unopacified. No calculi are seen within the urinary bladder. There is no loculated fluid collection, free fluid or free air. Multiple enlarged bilateral inguinal lymph nodes are identified. Largest on the right measures 1.8 x 1.5 cm. IMPRESSION: 1. No acute abnormalities are seen within the abdomen or pelvis. 2. Other nonemergent findings as described above. Dictated on workstation # [id number] Dict: 11/15/21 1757 Trans: 11/15/21 1808 [facility] [id number] Interpreted by: GOLDIE MCCLELLAND MD Electronically signed by: (NEERAJ VILLA APRN) Impression Primary Impression: Methamphetamine intoxication Additional Impression: STEVE (acute kidney injury) Disposition: 01 HOME, SELF-CARE Condition: Stable Departure-Patient Inst. Decision time for Depature: 18:12 (NEERAJ VILLA APRN) Referrals: [facility] (PCP/Family) Primary Care Physician Patient Instructions: Kidney Failure (DC), Meth Mouth Add. Discharge Instructions: 1. The methamphetamine that you are smoking is causing you to see snakes. Stop the meth and the snakes will go away. Return to ER for any concerns. All discharge instructions reviewed with patient and/or family. Voiced unders tanding. ATTENDING PHYSICIAN NOTE: I WAS PHYSICALLY PRESENT ER PHYSICIAN WHEN THIS PATIENT WAS IN ER, BUT I WAS NOT INVOLVED IN ANY DECISION MAKING OR ANY CARE OF THIS PATIENT. (HOLA BRIGHT DO) NEERAJ VILLA APRN Nov 15, 2021 17:44 HOLA BRIGHT DO Nov 16, 2021 04:50
[2021-11-15] MEDS ORDERED: LORazepam INJ 2 MG/ML (ATIVAN) VIAL IVP ONE (17:45)
[2021-11-15] MEDS ORDERED: LACTATED RINGERS 1,000 ML IV SCH ×2 (17:45→18:45)
--- NOTE | 2021-11-15 18:09 | Diagnostic Imaging Report ---
PROCEDURE: CT abdomen and pelvis without contrast. TECHNIQUE: Multiple contiguous axial images were obtained through the abdomen and pelvis without the use of intravenous contrast. Auto Exposure Controls were utilized during the CT exam to meet ALARA standards for radiation dose reduction. INDICATION: Altered mental status. COMPARISON: 10/25/2021. FINDINGS: Included portions of the lung bases are clear. CT ABDOMEN: Large amount of air and stool is noted within the rectum. Mild air and stool is also present scattered throughout the colon. Small bowel loops are nondistended. Normal appendix cannot be adequately identified, but there is no pericecal inflammation. There is asymmetric moderate atrophy of the right kidney. Note is also made of prominent lobulated appearance to both kidneys. Findings could be on the basis of persistent lobulation. Findings could also relate to history of previous infarct or infection. The adrenal glands, spleen, pancreas and liver have an unremarkable noncontrast CT appearance. There is no loculated fluid collection, free fluid or free air within the abdomen. No abnormal mesenteric or retroperitoneal adenopathy is identified. Osseous structures show no acute abnormalities. CT PELVIS: Urinary bladder is unopacified. No calculi are seen within the urinary bladder. There is no loculated fluid collection, free fluid or free air. Multiple enlarged bilateral inguinal lymph nodes are identified. Largest on the right measures 1.8 x 1.5 cm. IMPRESSION: 1. No acute abnormalities are seen within the abdomen or pelvis. 2. Other nonemergent findings as described above. Dictated by: Dictated on workstation # [id number]
[2021-11-15 18:16] LABS: BILIRUBIN,URINE NEGATIVE (NEGATIVE); CLARITY,URINE CLEAR; COLOR,URINE YELLOW; GLUCOSE, URINE (UA) NEGATIVE (NEGATIVE); KETONES,URINE TRACE (NEGATIVE); LEUKOCYTE ESTERASE ,URINE NEGATIVE (NEGATIVE); NITRITE,URINE NEGATIVE (NEGATIVE); PROTEIN,URINE TRACE (NEGATIVE)
[2021-11-15 18:23] LABS: BASOPHILS % (AUTO) 0 % (0-10); EOSINOPHILS # (AUTO) 0.1 10^3/uL (0.0-0.3); EOSINOPHILS % (AUTO) 1 % (0-10); HEMATOCRIT 30 % (35-52); HEMOGLOBIN 9.2 g/dL (11.5-16.0); LYMPHOCYTES # (AUTO) 0.9 10^3/uL (1.0-4.0); LYMPHOCYTES % (AUTO) 19 % (12-44); MEAN CORPUSCULAR HEMOGLOBIN 26 pg (25-34); MEAN CORPUSCULAR HGB CONC 31 g/dL (32-36); MEAN CORPUSCULAR VOLUME 83 fL (80-99); MONOCYTES # (AUTO) 0.5 10^3/uL (0.0-1.0); MONOCYTES % (AUTO) 11 % (0-12); NEUTROPHILS # (AUTO) 3.4 10^3/uL (1.8-7.8); NEUTROPHILS % (AUTO) 69 % (42-75); PLATELET COUNT 321 10^3/uL (130-400)
[2021-11-15 18:26] LABS: BACTERIA,URINE TRACE /HPF; RBC,URINE RARE /HPF; URINE OTHER 2-5 TRANS EPIS /HPF; WBC,URINE RARE /HPF
[2021-11-15 18:30] LABS: ALBUMIN 3.6 GM/DL (3.2-4.5); POTASSIUM 3.6 MMOL/L (3.6-5.0)
[2021-11-15 18:33] LABS: TOTAL PROTEIN 7.2 GM/DL (6.4-8.2)
[2021-11-15 18:34] LABS: BILIRUBIN,TOTAL 0.4 MG/DL (0.1-1.0)
[2021-11-15 18:36] LABS: CREATININE SERUM 2.69 MG/DL (0.60-1.30)
[2021-11-15 20:12] LABS: AMPHETAMINE SCREEN, URINE POSITIVE (NEGATIVE); BARBITURATE SCREEN URINE NEGATIVE (NEGATIVE); BENZODIAZEPINES SCREEN URINE NEGATIVE (NEGATIVE); CANNABINOID SCREEN, URINE NEGATIVE (NEGATIVE); COCAINE SCREEN URINE NEGATIVE (NEGATIVE); METHADONE STAT NEGATIVE (NEGATIVE); METHAMPHETAMINE SCREEN URINE S POSITIVE (NEGATIVE); OPIATE SCREEN URINE NEGATIVE (NEGATIVE); OXYCODONE STAT NEGATIVE (NEGATIVE); PROPOXYPHENE STAT NEGATIVE (NEGATIVE); TRICYCLIC ANTIDEPRESSANTS SCRE NEGATIVE (NEGATIVE)
[2021-11-15 21:13] VITALS: BP 146/79
== END 2021-11-16 01:24 | disposition home or self-care (01) ==
LOC: EDUNIT# 17:24 → ER 17:26
DX: F15.129 Other stimulant abuse with intoxication, unspecified (principal); N17.9 Acute kidney failure, unspecified; K21.9 Gastro-esophageal reflux disease without esophagitis; G40.909 Epilepsy, unspecified, not intractable, without status epilepticus; I10 Essential (primary) hypertension; E11.9 Type 2 diabetes mellitus without complications; F41.9 Anxiety disorder, unspecified; F31.9 Bipolar disorder, unspecified; Z86.73 Personal history of transient ischemic attack (TIA), and cerebral infarction without residual deficits; Z79.899 Other long term (current) drug therapy
CPT/HCPCS: 36415; 74176; 80053; 80306; 81000; 85025

== ENCOUNTER 2021-11-17 04:00 | Emergency (ER) | payer MEDICAID ==
[~2021-11-17] VITALS: Ht 160 cm; Wt 74.8 kg
[2021-11-17] MEDS ORDERED: LORazepam INJ 2 MG/ML (ATIVAN) VIAL IM ONE (04:15)
--- NOTE | 2021-11-17 04:19 | ED General ---
General Chief Complaint: Substance Abuse Stated Complaint: METH USE Nursing Triage Note: BROUGHT IN BY [facility] FOR AMS/METH ABUSE, ANXIETY. PT REPORTS SEEING SNAKES Source of Information: Patient Exam Limitations: No Limitations History of Present Illness Date Seen by Provider: Nov 17, 2021 Time Seen by Provider: 04:10 Initial Comments Michelle is a 61-year-old female, well-known to this emergency department who presents by EMS with a chief complaint of "seeing snakes" and "kidneys burning". Patient was seen here approximately 2 days ago diagnosed with enteritis. Had extensive lab evaluation with a CT of the abdomen and pelvis. Labs are reviewed and were unremarkable. Patient states she last used methamphetamine yesterday, she is chronically methamphetamine dependent. She appears acutely agitated, cr chante, jittery/jerking movements. She is requesting antibiotics for her kidney pain. Denies chest pain or shortness of breath. Denies abdominal pain. Is not having nausea or diarrhea. No reported fevers or chills. All other review of systems reviewed and negative except as stated. Timing/Duration: Other (Unknown secondary to patient's agitation) Severity: Moderate Allergies and Home Medications Allergies Coded Allergies: nitrous oxide (Verified Allergy, Unknown, 06/08/07) Patient Home Medication List Home Medication List Reviewed: Yes Acetaminophen (Tylenol Extra Strength) 500 Mg Tablet, 1,000 MG PO Q6H PRN for PAIN-MILD, (Reported) Entered as Reported by: ANTHONY RODRIGUEZ on 08/03/18 0904 Amlodipine Besylate (Amlodipine Besylate) 10 Mg Tablet, 5 MG PO BID, (Reported) Entered as Reported by: ANTHONY RODRIGUEZ on 07/07/19 1207 Carvedilol (Coreg) 25 Mg Tab, 25 MG PO BID, (Reported) Entered as Reported by: DAVID SANTANA on 11/29/19 1443 Dicyclomine HCl (Dicyclomine HCl) 20 Mg Tablet, 20 MG PO Q6H PRN for abdominal cramping Prescribed by: ADEBAYO FATIMA on 10/25/21 1050 Divalproex Sodium (Depakote) 250 Mg Tablet.dr, 250 MG PO TID, (Reported) Entered as Reported by: DAVID SANTANA on 02/26/21 1036 Famotidine (Acid Spool Sander (FAMOTIDINE)) 20 Mg Tablet, 20 MG PO BID PRN for HEARTBURN, (Reported) Entered as Reported by: DAVID SANTANA on 11/29/19 1444 Hydralazine HCl (Hydralazine HCl) 100 Mg Tablet, 100 MG PO TID, (Reported) Entered as Reported by: DAVID SANTANA on 11/29/19 1441 Levetiracetam (Levetiracetam) 500 Mg Tablet, 1,000 MG PO BID, (Reported) Entered as Reported by: DAVID SANTANA on 02/26/21 1036 Ondansetron (Ondansetron Odt) 4 Mg Tab.rapdis, 4 MG PO Q8H PRN for nausea Prescribed by: ADEBAYO FATIMA on 10/25/21 1050 Phenazopyridine HCl (Pyridium) 100 Mg Tablet, 100 MG PO Q8H PRN for SPASMS Prescribed by: OCTAVIA KINNEY on 09/30/21 1147 Phenobarbital (Phenobarbital) 64.8 Mg Tablet, 129.6 MG PO BID, (Reported) Entered as Reported by: DAVID SANTANA on 11/29/19 1441 Sulfamethoxazole/Trimethoprim (Bactrim Ds Tablet) 1 Each Tablet, 1 EACH PO BID Prescribed by: OCTAVIA KINNEY on 09/30/21 1147 Review of Systems Review of Systems Constitutional: other (Agitated, "seeing snakes") EENTM: no symptoms reported Respiratory: no symptoms reported Cardiovascular: no symptoms reported Gastrointestinal: other (Kidneys "burning") Genitourinary: other (Burning pain) : No Musculoskeletal: no symptoms reported Skin: no symptoms reported Psychiatric/Neurological: Anxiety All Other Systems Reviewed Negative Unless Noted: Yes Past Nosgnwl-Soooix-Viwxkh Hx Patient Social History Tobacco Use?: Yes Substance use?: Yes Substance type: Methamphetamine Alcohol Use?: Yes Immunizations Up To Date Tetanus Booster (TDap): Less than 5yrs PED Vaccines UTD: No First/Initial COVID19 Vaccinat: NONE Second COVID19 Vaccination Deacon: NONE Third COVID19 Vaccination Date: NONE Seasonal Allergies Seasonal Allergies: No Past Medical History Surgery/Hospitalization HX: L POWER PORT, HIGH CHOLESTEROL, HTN, RENAL STONES, GERD, PANCREATITIS, HEPATITIS, CH. 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, Menopausal Sexually Transmitted Disease: No HIV/AIDS: No Genitourinary: Yes Kidney Infection, Bladder Infection, Kidney Stones, Renal Failure, UTI-Chronic Gastrointestinal: Yes Abdominal Hernia, Gastroesophageal Reflux, Pancreatitis, Hepatitis Musculoskeletal: Yes (CHRONIC NECK AND BACK PAIN; POOR AMBULATION) Arthritis, Chronic Back Pain Endocrine: Yes (HGB AIC WAS 6.5 ON 12/23/18) Diabetes, Non-Insulin dep HEENT: Yes (POOR DENTITION) Loss of Vision: Denies Hearing Impairment: Denies Cancer: Yes Cervical Did You Recieve Any Treatments: Yes What Type of Treatment Did You: Surgical Intervention Psychosocial: Yes (POLYSUBSTANCE ABUSE) Anxiety, Bipolar, Depression Integumentary: No Blood Disorders: Yes (ANEMIA OF CHRONIC DISEASE) Adverse Reaction/Blood Tranf: No Family Medical History Abdominal aortic aneurysm 03 FATHER Alcoholism 03 FATHER 03 MOTHER 09 SISTER 09 SISTER Cancer 03 FATHER Cataract 03 FATHER 03 MOTHER Chest pain 03 MOTHER Family history: Diabetes mellitus 03 MOTHER Family history: Hypertension 03 MOTHER Family history: Thyroid disorder 03 MOTHER Headache 09 SISTER Heart disease 03 MOTHER History of drug abuse 03 FATHER 09 SISTER Myocardial infarction 03 MOTHER No Family History of: Isael's disease Aphasia Cancer of colon Congenital heart disease Congestive heart failure Cystic fibrosis Dementia Dysphagia Family history: Allergy Family history: Alzheimer's disease Family history: Arthritis Family history: Asthma Family history: Breast disease Family history: Cardiovascular disease Family history: Coronary thrombosis Family history: Gastrointestinal disease Family history: Glaucoma Family history: Osteoporosis Hearing loss Hereditary disease History of - anemia History of - disorder History of - respiratory disease Human immunodeficiency virus (HIV) seropositivity Hypercholesterolemia Infertile Kidney disease Malignant neoplasm of lung Parkinson's disease Prostate cancer Psychotic disorder Seizure disorder Stroke Tuberculosis Visual impairment AAA, Heart Disease, Diabetes -SOCIAL HISTORY: -ETOH -OCCASIONAL USE -DRUGS-EXTENSIVE HISTORY OF IV METH USE, THC USE -SMOKES AT LEAST 1 PPD PAST SURGICAL HISTORY: -MULTIPLE CENTRAL LINES/PICC LINES -PORT LEFT CHEST PRESENT 07/29/20 -DIAGNOSTIC LAPAROSCOPY/LAPAROTOMY -MULTIPLE CYSTOSCOPIES WITH RIGHT URETERAL STENT PLACED AND LATER REMOVED -I&D OF ABSCESSES -MULTIPLE CARDIAC CATHS--NO INTERVENTION -HYSTERECTOMY WITH LATER BILATERAL SALPINGO-OOPHORECTOMY -UMBILICAL HERNIA REPAIR WITH MESH -BILATERAL MYRINGOTOMY TUBES -BLADDER SUSPENSION -MULTIPLE LEFT LEG SURGERIES DUE TO TRAUMA A CHILD -EGD -LEFT MASTOIDECTOMY NOTED ON CT 08/26/19--PT UNAWARE OF THIS PAST MEDICAL HISTORY: -HAS BEEN INTUBATED FOR RESPIRATORY FAILURE--LAST TIME WAS 08/26/19 -WEARS O2 AT 4L/NC CONTINUOUSLY -NON-ISCHEMIC CARDIOMYOPATHY -HAS HAD EXTERNAL DEFIBRILLATOR IN PAST -CHRONIC CHEST PAIN COMPLAINTS, WITH ELEVATED TROPONIN MULTIPLE TIMES AND DX WITH NSTEMI 02/2018--LAST CARDIAC CATH 02/2018--SHOWED MILD CAD/NO INTERVENTION LAST LEXISCAN STRESS TEST WAS NORMAL 07/12/19. LAST ECHOCARDIOGRAM 08/20/19--NON-ISCHEMIC CARDIOMYOPATHY WITH EF 55-65% -MITRAL REGURGITATION -TRICUSPID VALVE VEGETATIONS 2013 -CHF -MULTIPLE CARDIAC CATHS-NO INTERVENTION -POOR VENOUS ACCESS -TRAUMATIC BRAIN INJURY CHILD; -CVA WITH LEFT SIDED WEAKNESS -POOR BALANCE--IS SUPPOSED TO USE A WALKER -MULTIPLE EPISODES OF "ALTERED MENTAL STATUS" -MULTIPLE HEAD INJURIES DUE TO REPORTED DOMESTIC ABUSE -CHRONIC RENAL FAILURE--NO DIALYSIS -CHRONIC ABDOMINAL PAIN COMPLAINTS; -GASTRITIS -HEPATITIS C--NO TREATMENT -CHRONIC NECK AND BACK PAIN; POOR AMBULATION -ANEMIA OF CHRONIC DISEASE -LONG HISTORY OF NON-COMPLIANCE IN ALL ASPECTS OF CARE Physical Exam Vital Signs Vital Signs - First Documented 11/17/21 04:02 Temp 36.2 Pulse 99 Resp 26 B/P (MAP) 152/72 (98) Pulse Ox 92 O2 Delivery Room Air Capillary Refill : Less Than 3 Seconds Height, Weight, BMI Height: 5'3.00" Weight: 155lbs. 8.0oz. [id number]; 29.00 BMI Method:Stated General Appearance: Anxious, Chronically ill, Other (Appears chronically ill, dirty, unkempt and disheveled) Eyes: Bilateral Eye Normal Inspection HEENT: PERRL/EOMI, Other (Dry oral mucosa) Respiratory: Lungs Clear, Normal Breath Sounds, No Accessory Muscle Use, No Respiratory Distress Cardiovascular: Regular Rate, Rhythm Gastrointestinal: Non Tender, Soft Extremity: Normal Inspection, Normal Range of Motion Neurologic/Psychiatric: Alert, Other (Agitated, appears intoxicated on methamphetamine) Skin: Warm/Dry, Other (Dirty and unkempt. Multiple superficial skin wounds that do not appear infected) Procedures/Interventions Date of ETT Placement: Sep 17, 2019 Time of ETT Placement: 1745 Progress/Results/Core Measures Suspected Sepsis SIRS Temperature: Pulse: 99 Respiratory Rate: 26 Blood Pressure 152 /72 Mean: 98 Results/Orders Lab Results Laboratory Tests Test 11/17/21 04:18 Range/Units Urine Color YELLOW Urine Clarity CLEAR Urine pH 6.0 5-9 Urine Specific [place] 1.020 1.016-1.022 Urine Protein TRACE H NEGATIVE Urine Glucose (UA) NEGATIVE NEGATIVE Urine Ketones TRACE H NEGATIVE Urine Nitrite NEGATIVE NEGATIVE Urine Bilirubin NEGATIVE NEGATIVE Urine Urobilinogen 0.2 < = 1.0 MG/DL Urine Leukocyte Esterase NEGATIVE NEGATIVE Urine RBC (Auto) NEGATIVE NEGATIVE Urine RBC NONE /HPF Urine WBC NONE /HPF Urine Squamous Epithelial Cells 5-10 /HPF Urine Crystals NONE /LPF Urine Bacteria TRACE /HPF Urine Casts NONE /LPF Urine Mucus NEGATIVE /LPF Urine Culture Indicated NO My Orders Orders - ADEBAYO FATIMA MD Lorazepam Injection (Ativan Injection) (11/17/21 04:15) Ua Culture If Indicated (11/17/21 04:14) Medications Given in ED Current Medications Medications Dose Ordered Sig/Tad Route Start Time Stop Time Status Last Admin Dose Admin Lorazepam 2 mg ONCE ONCE IM 11/17/21 04:15 11/17/21 04:16 DC 11/17/21 04:21 2 MG Vital Signs/I&O 11/17/21 04:02 Temp 36.2 Pulse 99 Resp 26 B/P (MAP) 152/72 (98) Pulse Ox 92 O2 Delivery Room Air Capillary Refill : Less Than 3 Seconds Blood Pressure Mean: 98 Progress Note : Time: 04:46 Progress Note Patient's UA is clean of infection. Her exam is benign. Im not sure what her "burning" kidney pain is due to, but I suspect it is more likely attributable to her methamphetamine abuse and use. I have given her 2mg of ativan to calm her down and help her "seeing snakes". I think this will help her kidney pain as well. She does not clinically have any other concerning findings. She seems to be resting comfortably after the ativan but still gets agitated when I wake her up. I advised her her UA is normal. I suggested she followup with [facility] as well as possibly seeking care for her methamphetamine addiction through [facility]. Departure Impression Primary Impression: Methamphetamine dependence Disposition: 01 HOME, SELF-CARE Condition: Stable Departure-Patient Inst. Decision time for Depature: 04:18 Referrals: [facility] (PCP/Family) Primary Care Physician Patient Instructions: ALCOHOL AND SUBSTANCE ABUSE Add. Discharge Instructions: drink fluids to stay hydrated stop using methamphetamine followup with [facility] [phone] [address] [place] [address] please call the above for help with your methamphetamine addiction. Copy Copies To 1: GAVI DEGROOT KATHRYN M MD Nov 17, 2021 04:19
[2021-11-17 04:26] LABS: BILIRUBIN,URINE NEGATIVE (NEGATIVE); CLARITY,URINE CLEAR; COLOR,URINE YELLOW; GLUCOSE, URINE (UA) NEGATIVE (NEGATIVE); KETONES,URINE TRACE (NEGATIVE); LEUKOCYTE ESTERASE ,URINE NEGATIVE (NEGATIVE); NITRITE,URINE NEGATIVE (NEGATIVE); PROTEIN,URINE TRACE (NEGATIVE)
[2021-11-17 04:35] LABS: BACTERIA,URINE TRACE /HPF
[2021-11-17 04:52] VITALS: BP 137/80
== END 2021-11-17 04:55 | disposition home or self-care (01) ==
LOC: EDUNIT# 04:00 → ER 04:01
DX: F15.20 Other stimulant dependence, uncomplicated (principal); I10 Essential (primary) hypertension; K21.9 Gastro-esophageal reflux disease without esophagitis; G40.909 Epilepsy, unspecified, not intractable, without status epilepticus; F41.9 Anxiety disorder, unspecified; F31.9 Bipolar disorder, unspecified; E11.9 Type 2 diabetes mellitus without complications; Z72.0 Tobacco use; Z86.73 Personal history of transient ischemic attack (TIA), and cerebral infarction without residual deficits; Z79.899 Other long term (current) drug therapy
CPT/HCPCS: 81000; 99284

== ENCOUNTER 2022-02-06 14:04 | Emergency (ER) | payer MEDICAID ==
[~2022-02-06] VITALS: Ht 160 cm; Wt 72.6 kg
[2022-02-06 14:05] VITALS: BP 123/76
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
[2022-02-06] MEDS ORDERED: LORazepam INJ 2 MG/ML (ATIVAN) VIAL IVP ONE (14:30)
[2022-02-06 14:42] LABS: BASOPHILS % (AUTO) 0 % (0-10); EOSINOPHILS # (AUTO) 0.1 10^3/uL (0.0-0.3); EOSINOPHILS % (AUTO) 2 % (0-10); HEMATOCRIT 37 % (35-52); HEMOGLOBIN 11.7 g/dL (11.5-16.0); LYMPHOCYTES # (AUTO) 1.7 10^3/uL (1.0-4.0); LYMPHOCYTES % (AUTO) 31 % (12-44); MEAN CORPUSCULAR HEMOGLOBIN 28 pg (25-34); MEAN CORPUSCULAR HGB CONC 32 g/dL (32-36); MEAN CORPUSCULAR VOLUME 86 fL (80-99); MONOCYTES # (AUTO) 0.5 10^3/uL (0.0-1.0); MONOCYTES % (AUTO) 8 % (0-12); NEUTROPHILS # (AUTO) 3.2 10^3/uL (1.8-7.8); NEUTROPHILS % (AUTO) 58 % (42-75); PLATELET COUNT 432 10^3/uL (130-400); WHITE BLOOD COUNT 5.6 10^3/uL (4.3-11.0)
[2022-02-06 14:53] LABS: ALBUMIN 3.6 GM/DL (3.2-4.5); INR 0.9 (0.8-1.4); POTASSIUM 4.4 MMOL/L (3.6-5.0); PROTHROMBIN TIME PATIENT 12.6 SEC (12.2-14.7)
[2022-02-06 14:54] LABS: CALCIUM 8.7 MG/DL (8.5-10.1)
[2022-02-06 14:55] LABS: TOTAL PROTEIN 7.2 GM/DL (6.4-8.2)
[2022-02-06 14:57] LABS: BILIRUBIN,TOTAL 0.3 MG/DL (0.1-1.0)
[2022-02-06 14:59] LABS: CREATININE SERUM 1.7 MG/DL (0.60-1.30)
[2022-02-06 15:02] LABS: MAGNESIUM 2.4 MG/DL (1.6-2.4)
[2022-02-06] MEDS ORDERED: NS IV 500 ML 500 ML IV ONE (15:15)
--- NOTE | 2022-02-06 15:26 | Diagnostic Imaging Report ---
CLINICAL INDICATIONS: Patient with dizziness for a week and has had a headache. EXAM: Portable chest x-ray upright view. COMPARISON: Chest x-ray dated 10/25/2021. FINDINGS: Patient is slightly rotated on exam. Increased lung markings involving both lungs are again seen with stable appearance. There is no definite interval lung infiltrate. There is no pleural effusion or pneumothorax. Pulmonary vasculature and cardiac silhouette are within normal limits. [id number] again seen overlying the left chest, similar in position. There are hypertrophic spurs throughout the thoracic spine. IMPRESSION: Stable chest x-ray exam with no interval radiographic evidence of acute cardiopulmonary process. Dictated by: Dictated on workstation # [id number]
[2022-02-06] MEDS ORDERED: MECLIZINE 25 MG (ANTIVERT) TAB PO ONE (18:30)
[2022-02-06] MEDS ORDERED: MECL-149 PO (18:33)
[2022-02-06] MEDS ORDERED: HEParin (CENTRAL IV FLUSH) 500 UNIT/5 ML SYR ONE (19:35)
[2022-02-06] MEDS ORDERED: HEParin (CENTRAL IV FLUSH) 500 UNIT/5 ML SYR IV ONE (19:45)
== END 2022-02-06 19:45 | disposition home or self-care (01) ==
LOC: EDUNIT# 14:04 → ER 14:05
DX: R42 Dizziness and giddiness (principal); E11.9 Type 2 diabetes mellitus without complications
CPT/HCPCS: 36415; 71045; 80053; 83735; 83874; 84484; 85025; 85610; 85730; 93005; 93041

== ENCOUNTER 2022-02-09 22:31 | Emergency (ER) | payer MEDICAID ==
[~2022-02-09] VITALS: Ht 172 cm; Wt 68.0 kg
[~2022-02-09 22:31] MED LIST changes: +MECL-149 PO
[2022-02-09] MEDS ORDERED: NS IV 1000 ML 1,000 ML IV SCH (22:45)
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
[2022-02-09 23:06] LABS: BASOPHILS # (AUTO) 0.1 10^3/uL (0.0-0.1); BASOPHILS % (AUTO) 1 % (0-10); EOSINOPHILS # (AUTO) 0.1 10^3/uL (0.0-0.3); EOSINOPHILS % (AUTO) 1 % (0-10); HEMATOCRIT 34 % (35-52); HEMOGLOBIN 10.7 g/dL (11.5-16.0); LYMPHOCYTES # (AUTO) 1.7 10^3/uL (1.0-4.0); LYMPHOCYTES % (AUTO) 18 % (12-44); MEAN CORPUSCULAR HEMOGLOBIN 27 pg (25-34); MEAN CORPUSCULAR HGB CONC 32 g/dL (32-36); MEAN CORPUSCULAR VOLUME 87 fL (80-99); MEAN PLATELET VOLUME 10.8 fL (9.0-12.2); MONOCYTES # (AUTO) 0.5 10^3/uL (0.0-1.0); MONOCYTES % (AUTO) 6 % (0-12); NEUTROPHILS # (AUTO) 7.1 10^3/uL (1.8-7.8); NEUTROPHILS % (AUTO) 74 % (42-75); PLATELET COUNT 373 10^3/uL (130-400); WHITE BLOOD COUNT 9.5 10^3/uL (4.3-11.0)
[2022-02-09 23:09] LABS: BILIRUBIN,URINE NEGATIVE (NEGATIVE); CLARITY,URINE CLEAR; COLOR,URINE YELLOW; GLUCOSE, URINE (UA) NEGATIVE (NEGATIVE); KETONES,URINE NEGATIVE (NEGATIVE); LEUKOCYTE ESTERASE ,URINE TRACE (NEGATIVE); NITRITE,URINE NEGATIVE (NEGATIVE); PROTEIN,URINE TRACE (NEGATIVE)
[2022-02-09 23:12] LABS: CHLORIDE 105 MMOL/L (98-107); POTASSIUM 4.1 MMOL/L (3.6-5.0); SODIUM 138 MMOL/L (135-145)
[2022-02-09 23:13] LABS: ALBUMIN 3.8 GM/DL (3.2-4.5)
[2022-02-09 23:14] LABS: CALCIUM 9.1 MG/DL (8.5-10.1)
[2022-02-09 23:15] LABS: GLUCOSE 75 MG/DL (70-105); TOTAL PROTEIN 7.4 GM/DL (6.4-8.2)
[2022-02-09 23:16] LABS: BACTERIA,URINE LARGE /HPF
[2022-02-09 23:16] LABS: CARBON DIOXIDE 18 MMOL/L (21-32)
[2022-02-09 23:17] LABS: BILIRUBIN,TOTAL 0.4 MG/DL (0.1-1.0)
[2022-02-09 23:19] LABS: ALKALINE PHOSPHATASE 85 U/L (40-136); CREATININE SERUM 2.47 MG/DL (0.60-1.30); GFR ESTIMATED 22
[2022-02-09 23:20] LABS: BUN/CREATININE RATIO 20
[2022-02-09 23:22] LABS: ALANINE AMINOTRANSFERASE 18 U/L (0-55); CREATINE KINASE 245 U/L (29-168); SALICYLATE < 5.0 MG/DL (5.0-20.0)
[2022-02-09 23:27] LABS: AMPHETAMINE SCREEN, URINE POSITIVE (NEGATIVE); BARBITURATE SCREEN URINE NEGATIVE (NEGATIVE); BENZODIAZEPINES SCREEN URINE NEGATIVE (NEGATIVE); CANNABINOID SCREEN, URINE NEGATIVE (NEGATIVE); COCAINE SCREEN URINE NEGATIVE (NEGATIVE); METHADONE STAT NEGATIVE (NEGATIVE); OPIATE SCREEN URINE NEGATIVE (NEGATIVE); OXYCODONE STAT NEGATIVE (NEGATIVE); PROPOXYPHENE STAT NEGATIVE (NEGATIVE); TRICYCLIC ANTIDEPRESSANTS SCRE NEGATIVE (NEGATIVE)
[2022-02-09 23:27] LABS: ACETAMINOPHEN < 10 UG/ML (10-30)
[2022-02-10] MEDS ORDERED: NS IV 1000 ML 1,000 ML IV SCH (00:15)
[2022-02-10] MEDS ORDERED: LORazepam INJ 2 MG/ML (ATIVAN) VIAL IVP ONE (02:15)
[2022-02-10 02:50] VITALS: BP 167/92
--- NOTE | 2022-02-10 06:53 | Diagnostic Imaging Report ---
Indication: Cough and dyspnea. Comparison: 02/06/2022. Discussion: Single portable upright view of the chest was obtained. Low lung volumes. Heart is upper limits of normal in size. Some central venous congestion noted. No focal consolidation, pleural fluid, or pneumothorax. No osseous abnormality. Left-sided port is stable. Impression: 1. Heart is upper limits of normal with some central venous congestion. No blaise failure. Dictated by: Dictated on workstation # [id number]
== END 2022-02-10 07:28 | disposition home or self-care (01) ==
LOC: EDUNIT# 22:31 → ER 22:32
DX: F15.20 Other stimulant dependence, uncomplicated (principal); E86.0 Dehydration
CPT/HCPCS: 71045; 80053; 80306; 81000; 82550; 85025; 87077; 87088; 87186; 93005; 99284; G0480 ×3; 36415; 80320; 80329

== ENCOUNTER 2022-04-06 12:59 | Emergency (ER) | payer MEDICAID ==
[~2022-04-06] VITALS: Ht 160 cm; Wt 70.0 kg
[~2022-04-06 12:59] MED LIST changes: +CEPH500T PO
[2022-04-06 13:06] VITALS: BP 93/57
[2022-04-06 13:20] LABS: BILIRUBIN,URINE NEGATIVE (NEGATIVE); CLARITY,URINE CLEAR; COLOR,URINE YELLOW; GLUCOSE, URINE (UA) TRACE (NEGATIVE); KETONES,URINE NEGATIVE (NEGATIVE); LEUKOCYTE ESTERASE ,URINE NEGATIVE (NEGATIVE); NITRITE,URINE NEGATIVE (NEGATIVE); PROTEIN,URINE NEGATIVE (NEGATIVE)
[2022-04-06 13:26] LABS: AMORPHOUS SEDIMENT,UR FEW AMOR URATES /LPF; BACTERIA,URINE NEGATIVE /HPF
[2022-04-06] MEDS ORDERED: NS IV 1000 ML 1,000 ML IV SCH (14:15)
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
--- NOTE | 2022-04-06 15:01 | Diagnostic Imaging Report ---
CLINICAL INDICATION: Patient with coughing and renal failure. EXAM: Portable chest x-ray upright view. COMPARISON: Portable chest x-ray dated 02/09/2022. FINDINGS: Cardiac silhouette is upper limits of normal for portable projection. Pulmonary vasculature is within normal limits. Lungs are clear. There is no pleural effusion or pneumothorax. Port-A-Cath again seen in stable position. Bones show no significant interval abnormality. IMPRESSION: 1: Stable chest x-ray exam with no radiographic evidence of acute cardiopulmonary process. 2: Upper limits of normal heart size with no significant pulmonary vascular congestion. Dictated by: Dictated on workstation # [id number]
--- NOTE | 2022-04-06 15:08 | Diagnostic Imaging Report ---
PROCEDURE: CT abdomen and pelvis without contrast. TECHNIQUE: Multiple contiguous axial images were obtained through the abdomen and pelvis without the use of intravenous contrast. Auto Exposure Controls were utilized during the CT exam to meet ALARA standards for radiation dose reduction. INDICATION: Back pain and renal failure. COMPARISON: Prior study from 11/15/2021. FINDINGS: The lung bases demonstrate no findings of pneumonia or edema. There is no pleural or pericardial effusion. The liver demonstrates no evidence of a focal intrahepatic abnormality. The gallbladder is nondistended without radiodense stone or findings of biliary dilatation. Pancreas unremarkable. The spleen is normal in size. There is no adrenal mass. There is marked atrophy of the right kidney. The left kidney demonstrates lobular margins which are unchanged from prior exam. There are no findings of urolithiasis or hydronephrosis. There is a small hiatal hernia. No findings of small or large bowel dilation or bowel obstruction. There is no focal bowel thickening. The bladder is nondistended. The patient appears status post hysterectomy. There is no pelvic mass. There are no findings of free air, free fluid, abscess or adenopathy. Note is made of apparent prior surgical changes of the anterior abdominal wall with atrophy of the rectus musculature. The spine demonstrates fusion of the T12 and L1 vertebral bodies with multilevel endplate changes. Vertebral body heights appear maintained without acute or suspicious osseous abnormality. IMPRESSION: 1. No CT findings of an acute inflammatory or obstructive process within the abdomen or pelvis. 2. Apparent prior hysterectomy. 3. Marked atrophy of the right kidney. Kidneys nonobstructed without urolithiasis. 4. No bowel obstruction. 5. Prior surgical changes of the abdominal wall. 6. Degenerative features within the spine without acute or suspicious osseous abnormality. Dictated by: Dictated on workstation # [id number]
[2022-04-06 15:51] LABS: BASOPHILS % (AUTO) 0 % (0-10); EOSINOPHILS # (AUTO) 0.1 10^3/uL (0.0-0.3); EOSINOPHILS % (AUTO) 2 % (0-10); HEMATOCRIT 32 % (35-52); HEMOGLOBIN 10.2 g/dL (11.5-16.0); LYMPHOCYTES # (AUTO) 1.2 10^3/uL (1.0-4.0); LYMPHOCYTES % (AUTO) 24 % (12-44); MEAN CORPUSCULAR HEMOGLOBIN 28 pg (25-34); MEAN CORPUSCULAR HGB CONC 32 g/dL (32-36); MEAN CORPUSCULAR VOLUME 86 fL (80-99); MONOCYTES # (AUTO) 0.5 10^3/uL (0.0-1.0); MONOCYTES % (AUTO) 10 % (0-12); NEUTROPHILS # (AUTO) 3.2 10^3/uL (1.8-7.8); NEUTROPHILS % (AUTO) 64 % (42-75); PLATELET COUNT 299 10^3/uL (130-400)
[2022-04-06 16:01] LABS: ALBUMIN 3.7 GM/DL (3.2-4.5); POTASSIUM 3.7 MMOL/L (3.6-5.0)
[2022-04-06 16:02] LABS: CALCIUM 8.5 MG/DL (8.5-10.1)
[2022-04-06 16:04] LABS: TOTAL PROTEIN 7.1 GM/DL (6.4-8.2)
[2022-04-06 16:06] LABS: BILIRUBIN,TOTAL 0.4 MG/DL (0.1-1.0)
[2022-04-06 16:08] LABS: CREATININE SERUM 2.24 MG/DL (0.60-1.30)
[2022-04-06] MEDS ORDERED: HEParin (CENTRAL IV FLUSH) 500 UNIT/5 ML SYR IV ONE (19:30)
== END 2022-04-06 19:32 | disposition home or self-care (01) ==
LOC: EDUNIT# 12:59 → ER 13:00
DX: E86.0 Dehydration (principal); J44.9 Chronic obstructive pulmonary disease, unspecified; Z99.81 Dependence on supplemental oxygen; Z20.822 Contact with and (suspected) exposure to COVID-19; Z28.310 Unvaccinated for COVID-19
CPT/HCPCS: 36415; 71045; 74176; 80053; 81000; 82550; 85025; 86141; 87636

== ENCOUNTER 2022-05-17 04:22 | Emergency (ER) | payer MEDICAID ==
[~2022-05-17] VITALS: Ht 160 cm; Wt 74.2 kg
[2022-05-17] MEDS ORDERED: fentaNYL INJ 100 MCG/2 ML AMP IVP ONE (04:45)
[2022-05-17 04:48] LABS: BASOPHILS % (AUTO) 0 % (0-10); EOSINOPHILS # (AUTO) 0.2 10^3/uL (0.0-0.3); EOSINOPHILS % (AUTO) 4 % (0-10); HEMATOCRIT 37 % (35-52); HEMOGLOBIN 11.7 g/dL (11.5-16.0); LYMPHOCYTES # (AUTO) 1.5 10^3/uL (1.0-4.0); LYMPHOCYTES % (AUTO) 37 % (12-44); MEAN CORPUSCULAR HEMOGLOBIN 27 pg (25-34); MEAN CORPUSCULAR HGB CONC 32 g/dL (32-36); MEAN CORPUSCULAR VOLUME 85 fL (80-99); MEAN PLATELET VOLUME 10.3 fL (9.0-12.2); MONOCYTES # (AUTO) 0.4 10^3/uL (0.0-1.0); MONOCYTES % (AUTO) 10 % (0-12); NEUTROPHILS % (AUTO) 49 % (42-75); PLATELET COUNT 396 10^3/uL (130-400); WHITE BLOOD COUNT 4.2 10^3/uL (4.3-11.0)
[2022-05-17 05:02] LABS: ALBUMIN 3.5 GM/DL (3.2-4.5)
[2022-05-17 05:03] LABS: POTASSIUM 4.4 MMOL/L (3.6-5.0)
[2022-05-17 05:04] LABS: CALCIUM 8.3 MG/DL (8.5-10.1)
[2022-05-17 05:05] LABS: TOTAL PROTEIN 7.3 GM/DL (6.4-8.2)
[2022-05-17 05:06] LABS: INR 0.9 (0.8-1.4); PROTHROMBIN TIME PATIENT 12.6 SEC (12.2-14.7)
[2022-05-17 05:07] LABS: BILIRUBIN,TOTAL 0.3 MG/DL (0.1-1.0)
[2022-05-17 05:09] LABS: CREATININE SERUM 1.94 MG/DL (0.60-1.30)
[2022-05-17] MEDS ORDERED: RT-ALBUTEROL HFA 8.5 GM INHALER IH ONE (06:00)
--- NOTE | 2022-05-17 06:22 | ED General ---
General Chief Complaint: Respiratory Problems Stated Complaint: SOB Nursing Triage Note: PT ARRIVAL TO ER VIA [facility] FOR COMPLAINT OF SOA THIS AM, AND RIGHT SIDED CHEST PAIN X2 WEEKS. PT ARRIVES ANXIOUS. EMS GIVES 324 ASA, AND DUONEB EN ROUTE. PT HAS STABLE VITALS. Source of Information: Patient Exam Limitations: No Limitations (SANTHOSH LOWE MD) History of Present Illness Date Seen by Provider: May 17, 2022 Time Seen by Provider: 04:23 Initial Comments This 61-year-old woman presents to the emergency room via EMS with complaints of shortness of breath and right upper chest pain. She reports symptoms for 1 to 2 weeks. Her chest wall is very tender to the touch. There is no evidence of trauma or rash. She denies any fever. She does admit to using methamphetamines within the last 2 weeks. She does have cough as well. Patient normally wears 4 L oxygen by nasal cannula and is currently stable with oxygen saturations in the 90s on 2 L nasal cannula. (SANTHOSH LOWE MD) Allergies and Home Medications Allergies Coded Allergies: nitrous oxide (Verified Allergy, Unknown, 06/08/07) Patient Home Medication List Home Medication List Reviewed: Yes (SANTHOSH LOWE MD) Acetaminophen (Tylenol Extra Strength) 500 Mg Tablet, 1,000 MG PO Q6H PRN for PAIN-MILD, (Reported) Entered as Reported by: ANTHONY RODRIGUEZ on 08/03/18 0904 Amlodipine Besylate (Amlodipine Besylate) 10 Mg Tablet, 5 MG PO BID, (Reported) Entered as Reported by: ANTHONY RODRIGUEZ on 07/07/19 1207 Carvedilol (Coreg) 25 Mg Tab, 25 MG PO BID, (Reported) Entered as Reported by: DAVID SANTANA on 11/29/19 1443 Cephalexin (Cephalexin) 500 Mg Tablet, 500 MG PO BID Prescribed by: MICHAEL BURRELL on 02/13/22 1938 Dicyclomine HCl (Dicyclomine HCl) 20 Mg Tablet, 20 MG PO Q6H PRN for abdominal cramping Prescribed by: ADEBAYO HOYT on 10/25/21 1050 Divalproex Sodium (Depakote) 250 Mg Tablet.dr, 250 MG PO TID, (Reported) Entered as Reported by: DAVID SANTANA on 02/26/21 1036 Famotidine (Acid Md Allergy Immunology (FAMOTIDINE)) 20 Mg Tablet, 20 MG PO BID PRN for HEARTBURN, (Reported) Entered as Reported by: DAVID SANTANA on 11/29/19 1444 Hydralazine HCl (Hydralazine HCl) 100 Mg Tablet, 100 MG PO TID, (Reported) Entered as Reported by: DAVID SANTANA on 11/29/19 1441 Levetiracetam (Levetiracetam) 500 Mg Tablet, 1,000 MG PO BID, (Reported) Entered as Reported by: DAVID SANTANA on 02/26/21 1036 Meclizine HCl (Meclizine HCl) 25 Mg Tablet, 25 MG PO DAILY PRN for DIZZINESS Prescribed by: GIULIANO [place] on 02/06/22 1833 Ondansetron (Ondansetron Odt) 4 Mg Tab.rapdis, 4 MG PO Q8H PRN for nausea Prescribed by: ADEBAYO HOYT on 10/25/21 1050 Phenazopyridine HCl (Pyridium) 100 Mg Tablet, 100 MG PO Q8H PRN for SPASMS Prescribed by: OCTAVIA KINNEY on 09/30/21 1147 Phenobarbital (Phenobarbital) 64.8 Mg Tablet, 129.6 MG PO BID, (Reported) Entered as Reported by: DAVID SANTANA on 11/29/19 1441 Sulfamethoxazole/Trimethoprim (Bactrim Ds Tablet) 1 Each Tablet, 1 EACH PO BID Prescribed by: OCTAVIA KINNEY on 09/30/21 1147 Review of Systems Review of Systems Constitutional: no symptoms reported EENTM: no symptoms reported Respiratory: see HPI Cardiovascular: no symptoms reported Gastrointestinal: no symptoms reported Genitourinary: no symptoms reported : No Musculoskeletal: see HPI Skin: no symptoms reported Psychiatric/Neurological: See HPI Hematologic/Lymphatic: No Symptoms Reported Immunological/Allergic: no symptoms reported (SANTHOSH LOWE MD) Past Sorvvgf-Oblsml-Tpelle Hx Patient Social History Tobacco Use?: No Use of E-Cig and/or Vaping dev: No Substance use?: Yes Substance type: Methamphetamine, Marijuana Substance frequency: Daily Alcohol Use?: Yes Alcohol type: Beer, Hard Liquor Alcohol Frequency: Couple times a week Pt feels they are or have been: No (SANTHOSH LOWE MD) Immunizations Up To Date Tetanus Booster (TDap): Less than 5yrs PED Vaccines UTD: No Influenza Vaccine Up-to-Date: No; Not Current First/Initial COVID19 Vaccinat: NONE Second COVID19 Vaccination Deacon: NONE Third COVID19 Vaccination Date: NONE (SANTHOSH LOWE MD) Seasonal Allergies Seasonal Allergies: No (SANTHOSH LOWE MD) Past Medical History Surgery/Hospitalization HX: L POWER PORT, HIGH CHOLESTEROL, HTN, RENAL STONES, GERD, PANCREATITIS, HEPATITIS, CH. BACK PAIN, NIDDM, BIPOLAR Surgeries: Yes (SEE BELOW) Coronary Stent Respiratory: Yes (O2 AT 4L/NC CONTINUOUSLY;HX OF RESP FAILURE W/INTUBATION) Pneumonia Currently Using CPAP: No Currently Using BIPAP: No Cardiac: Yes High Cholesterol, Hypertension Neurological: Yes Seizure Disorder, Stroke 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 Disorders: No Female 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 [employer]PER[employer]OR History: Hysterectomy, Menopausal Sexually Transmitted Disease: No HIV/AIDS: No Genitourinary: Yes Kidney Infection, Bladder Infection, Kidney Stones, Renal Failure, UTI-Chronic Gastrointestinal: Yes Abdominal Hernia, Gastroesophageal Reflux, Pancreatitis, Hepatitis Musculoskeletal: Yes (CHRONIC NECK AND BACK PAIN; POOR AMBULATION) Arthritis, Chronic Back Pain Endocrine: Yes (HGB AIC WAS 6.5 ON 12/23/18) Diabetes, Non-Insulin dep HEENT: Yes (POOR DENTITION) Loss of Vision: Denies Hearing Impairment: Denies Cancer: Yes Cervical Did You Recieve Any Treatments: Yes What Type of Treatment Did You: Surgical Intervention Psychosocial: Yes (POLYSUBSTANCE ABUSE) Anxiety, Bipolar, Depression Integumentary: No Blood Disorders: Yes (ANEMIA OF CHRONIC DISEASE) Adverse Reaction/Blood Tranf: No (SANTHOSH LOWE MD) Family Medical History Abdominal aortic aneurysm 03 FATHER Alcoholism 03 FATHER 03 MOTHER 09 SISTER 09 SISTER Cancer 03 FATHER Cataract 03 FATHER 03 MOTHER Chest pain 03 MOTHER Family history: Diabetes mellitus 03 MOTHER Family history: Hypertension 03 MOTHER Family history: Thyroid disorder 03 MOTHER Headache 09 SISTER Heart disease 03 MOTHER History of drug abuse 03 FATHER 09 SISTER Myocardial infarction 03 MOTHER No Family History of: Isael's disease Aphasia Cancer of colon Congenital heart disease Congestive heart failure Cystic fibrosis Dementia Dysphagia Family history: Allergy Family history: Alzheimer's disease Family history: Arthritis Family history: Asthma Family history: Breast disease Family history: Cardiovascular disease Family history: Coronary thrombosis Family history: Gastrointestinal disease Family history: Glaucoma Family history: Osteoporosis Hearing loss Hereditary disease History of - anemia History of - disorder History of - respiratory disease Human immunodeficiency virus (HIV) seropositivity Hypercholesterolemia Infertile Kidney disease Malignant neoplasm of lung Parkinson's disease Prostate cancer Psychotic disorder Seizure disorder Stroke Tuberculosis Visual impairment AAA, Heart Disease, Diabetes -SOCIAL HISTORY: -ETOH -OCCASIONAL USE -DRUGS-EXTENSIVE HISTORY OF IV METH USE, THC USE -SMOKES AT LEAST 1 PPD PAST SURGICAL HISTORY: -MULTIPLE CENTRAL LINES/PICC LINES -PORT LEFT CHEST PRESENT 07/29/20 -DIAGNOSTIC LAPAROSCOPY/LAPAROTOMY -MULTIPLE CYSTOSCOPIES WITH RIGHT URETERAL STENT PLACED AND LATER REMOVED -I&D OF ABSCESSES -MULTIPLE CARDIAC CATHS--NO INTERVENTION -HYSTERECTOMY WITH LATER BILATERAL SALPINGO-OOPHORECTOMY -UMBILICAL HERNIA REPAIR WITH MESH -BILATERAL MYRINGOTOMY TUBES -BLADDER SUSPENSION -MULTIPLE LEFT LEG SURGERIES DUE TO TRAUMA A CHILD -EGD -LEFT MASTOIDECTOMY NOTED ON CT 08/26/19--PT UNAWARE OF THIS PAST MEDICAL HISTORY: -HAS BEEN INTUBATED FOR RESPIRATORY FAILURE--LAST TIME WAS 08/26/19 -WEARS O2 AT 4L/NC CONTINUOUSLY -NON-ISCHEMIC CARDIOMYOPATHY -HAS HAD EXTERNAL DEFIBRILLATOR IN PAST -CHRONIC CHEST PAIN COMPLAINTS, WITH ELEVATED TROPONIN MULTIPLE TIMES AND DX WITH NSTEMI 02/2018--LAST CARDIAC CATH 02/2018--SHOWED MILD CAD/NO INTERVENTION LAST LEXISCAN STRESS TEST WAS NORMAL 07/12/19. LAST ECHOCARDIOGRAM 08/20/19--NON-ISCHEMIC CARDIOMYOPATHY WITH EF 55-65% -MITRAL REGURGITATION -TRICUSPID VALVE VEGETATIONS 2013 -CHF -MULTIPLE CARDIAC CATHS-NO INTERVENTION -POOR VENOUS ACCESS -TRAUMATIC BRAIN INJURY CHILD; -CVA WITH LEFT SIDED WEAKNESS -POOR BALANCE--IS SUPPOSED TO USE A WALKER -MULTIPLE EPISODES OF "ALTERED MENTAL STATUS" -MULTIPLE HEAD INJURIES DUE TO REPORTED DOMESTIC ABUSE -CHRONIC RENAL FAILURE--NO DIALYSIS -CHRONIC ABDOMINAL PAIN COMPLAINTS; -GASTRITIS -HEPATITIS C--NO TREATMENT -CHRONIC NECK AND BACK PAIN; POOR AMBULATION -ANEMIA OF CHRONIC DISEASE -LONG HISTORY OF NON-COMPLIANCE IN ALL ASPECTS OF CARE (SANTHOSH LOWE MD) Physical Exam Vital Signs Vital Signs - First Documented 05/17/22 04:24 Temp 36.2 Pulse 84 Resp 24 B/P (MAP) 107/81 (90) Pulse Ox 97 O2 Delivery Room Air (ADEBAYO HOYT MD) Vital Signs Capillary Refill : Less Than 3 Seconds (SANTHOSH LOWE MD) Height, Weight, BMI Height: 5'3.00" Weight: 155lbs. 8.0oz. 70.763834ch; 28.00 BMI Method:Stated General Appearance: WD/WN, Mild Distress HEENT: PERRL/EOMI, Normal ENT Inspection Neck: Normal Inspection Respiratory: No Accessory Muscle Use, No Respiratory Distress, Wheezing, Other (Right upper anterior chest wall tender to palpation) Cardiovascular: Regular Rate, Rhythm, No Edema, No Murmur Gastrointestinal: Normal Bowel Sounds, Non Tender, Soft Extremity: Normal Inspection, No Pedal Edema Neurologic/Psychiatric: Alert, Oriented x3, No Motor/Sensory Deficits, Normal Mood/Affect, supervisor gluing II-XII Norm as Tested Skin: Normal Color, Warm/Dry (SANTHOSH LOWE MD) Procedures/Interventions Date of ETT Placement: Sep 17, 2019 Time of ETT Placement: 1744 (SANTHOSH LOWE MD) Progress/Results/Core Measures Suspected Sepsis SIRS Temperature: Pulse: 84 Respiratory Rate: 24 Laboratory Tests 05/17/22 04:40: White Blood Count 4.2L Blood Pressure 107 /81 Mean: 90 Laboratory Tests 05/17/22 04:40: Creatinine 1.94H, INR Comment 0.9, Platelet Count 396, Total Bilirubin 0.3 (SANTHOSH LOWE MD) Results/Orders Lab Results Laboratory Tests Test 05/17/22 04:40 05/17/22 07:14 05/17/22 07:20 Range/Units White Blood Count 4.2 L 4.3-11.0 10^3/uL Red Blood Count 4.35 3.80-5.11 10^6/uL Hemoglobin 11.7 11.5-16.0 g/dL Hematocrit 37 35-52 % Mean Corpuscular Volume 85 80-99 fL Mean Corpuscular Hemoglobin 27 25-34 pg Mean Corpuscular Hemoglobin Concent 32 32-36 g/dL Red Cell Distribution Width 15.2 H 10.0-14.5 % Platelet Count 396 130-400 10^3/uL Mean Platelet Volume 10.3 9.0-12.2 fL Immature Granulocyte % (Auto) 0 % Neutrophils (%) (Auto) 49 42-75 % Lymphocytes (%) (Auto) 37 12-44 % Monocytes (%) (Auto) 10 0-12 % Eosinophils (%) (Auto) 4 0-10 % Basophils (%) (Auto) 0 0-10 % Neutrophils # (Auto) 2.0 1.8-7.8 10^3/uL Lymphocytes # (Auto) 1.5 1.0-4.0 10^3/uL Monocytes # (Auto) 0.4 0.0-1.0 10^3/uL Eosinophils # (Auto) 0.2 0.0-0.3 10^3/uL Basophils # (Auto) 0.0 0.0-0.1 10^3/uL Immature Granulocyte # (Auto) 0.0 0.0-0.1 10^3/uL Prothrombin Time 12.6 12.2-14.7 SEC INR Comment 0.9 0.8-1.4 Activated Partial Thromboplast Time 75 H 24-35 SEC Sodium Level 131 L 135-145 MMOL/L Potassium Level 4.4 3.6-5.0 MMOL/L Chloride Level 100 98-107 MMOL/L Carbon Dioxide Level 22 21-32 MMOL/L Anion Gap 9 5-14 MMOL/L Blood Urea Nitrogen 42 H 7-18 MG/DL Creatinine 1.94 H 0.60-1.30 MG/DL Estimat Glomerular Filtration Rate 29 BUN/Creatinine Ratio 22 Glucose Level 91 70-105 MG/DL Calcium Level 8.3 L 8.5-10.1 MG/DL Corrected Calcium 8.7 8.5-10.1 MG/DL Magnesium Level 2.0 1.6-2.4 MG/DL Total Bilirubin 0.3 0.1-1.0 MG/DL Aspartate Amino Transf (AST/SGOT) 23 5-34 U/L Alanine Aminotransferase (ALT/SGPT) 34 0-55 U/L Alkaline Phosphatase 81 40-136 U/L Myoglobin 71.5 10.0-92.0 NG/ML Troponin I 0.068 H 0.073 H <0.028 NG/ML C-Reactive Protein High Sensitivity 1.98 H 0.00-0.50 MG/DL Total Protein 7.3 6.4-8.2 GM/DL Albumin 3.5 3.2-4.5 GM/DL Influenza Type A (RT-PCR) Not Detected Not Detecte Influenza Type B (RT-PCR) Not Detected Not Detecte SARS-CoV-2 RNA (RT-PCR) Detected H Not Detecte Urine Opiates Screen NEGATIVE NEGATIVE Urine Oxycodone Screen NEGATIVE NEGATIVE Urine Methadone Screen NEGATIVE NEGATIVE Urine Propoxyphene Screen NEGATIVE NEGATIVE Urine Barbiturates Screen NEGATIVE NEGATIVE Ur Tricyclic Antidepressants Screen NEGATIVE NEGATIVE Urine Phencyclidine Screen NEGATIVE NEGATIVE Urine Amphetamines Screen POSITIVE H NEGATIVE Urine Methamphetamines Screen POSITIVE H NEGATIVE Urine Benzodiazepines Screen NEGATIVE NEGATIVE Urine Cocaine Screen NEGATIVE NEGATIVE Urine Cannabinoids Screen NEGATIVE NEGATIVE (ADEBAYO HOYT MD) My Orders Orders - ADEBAYO HOYT MD Bebtelovimab (Bebtelovimab) (05/17/22 06:30) (ADEBAYO HOYT MD) Medications Given in ED Current Medications Medications Dose Ordered Sig/Tad Route Start Time Stop Time Status Last Admin Dose Admin Albuterol Sulfate 4 PUFFS RTQ4HR ONCE IH 05/17/22 06:00 05/17/22 06:01 DC 05/17/22 05:49 1 GM Bebtelovimab 175 mg ONCE ONCE IV 05/17/22 06:30 05/17/22 06:31 DC 05/17/22 07:09 175 MG Fentanyl Citrate 50 mcg ONCE ONCE IVP 05/17/22 04:45 05/17/22 04:46 DC 05/17/22 04:53 50 MCG (ADEBAYO HOYT MD) Vital Signs/I&O 05/17/22 05/17/22 04:24 04:24 Temp 36.2 Pulse 84 Resp 24 B/P (MAP) 107/81 (90) Pulse Ox 97 O2 Delivery Room Air Room Air (ADEBAYO HOYT MD) Vital Signs/I&O Capillary Refill : Less Than 3 Seconds (SANTHOSH LOWE MD) Blood Pressure Mean: 90 Progress Note : Time: 06:34 Progress Note COVID-19 test was positive. She received an albuterol inhaler treatment. Because of patient's baseline health and her questionable ability to accurately report duration of symptoms, it is unclear how long she has been sick. For this reason, it is reasonable to offer COVID-19 treatment. She is an at risk patient with her multiple comorbidities. She is on too many medications that have potential interactions with Paxlovid, so monoclonal antibody therapy was recommended. The experimental use authorization was explained to the patient. She would like to proceed with monoclonal antibody therapy. Troponin was noted to be elevated which seems to be a chronic condition for her. We will check a 2-hour troponin to ensure there is no delta. Patient feels much better at this time. She is smiling, content, and grateful for her care. Care is being transitioned to Dr. Hoyt at this time. (SANTHOSH LOWE MD) Progress Note : Time: 09:05 Progress Note I reviewed Michelle's labs, she had a marginal increase in her troponin. Extensive review of the medical record shows that she has had chronically elevated troponins since 2010. She had a stress test in May 2021 which showed no inducible ischemia. Her echo at that time showed an EF of 50 to 55%. She previously had left heart catheterization in 2018 with only mild coronary artery disease noted at that time. She does continue to use methamphetamine and is positive today. Her vital signs are stable. Her EKG is unremarkable. On reevaluation of the patient herself she is resting comfortably with no acute complaints. No pain no shortness of breath. She is agreeable for discharge to home. She states that she will follow-up with cardiology. I have advised her to return if she develops any worsening symptoms such as shortness of breath or chest pain. She verbalized understanding. All questions are sought and answered. (ADEBAYO HOYT MD) ECG Initial ECG Impression Date: May 17, 2022 Initial ECG Impression Time: 04:36 Initial ECG Rate: 60 Initial ECG Rhythm: Normal Sinus Comment Normal sinus rhythm with no ST elevation or depression. No abnormal intervals or axis deviation. (SANTHOSH LOWE MD) Diagnostic Imaging Diagonstic Imaging: Xray Plain Films/CT/US/NM/MRI: chest Comments Chest x-ray was viewed by me. Report is pending. No pneumothorax, consolidation, or infiltrate appreciated. (SANTHOSH LOWE MD) Departure Impression Primary Impression: COVID-19 Additional Impressions: Chest wall pain Methamphetamine abuse Elevated troponin Disposition: 01 HOME, SELF-CARE Condition: Improved Departure-Patient Inst. Decision time for Depature: 09:07 (ADEBAYO HOYT MD) Referrals: [facility]ADA (PCP) Primary Care Physician SILVIA DUNLAP APRN (Family) Primary Care Physician Patient Instructions: COVID-19 ED Add. Discharge Instructions: Continue your daily medications as previously prescribed. You have been given the Monoclonal antibody therapy to help to treat COVID today. You will need to quarantine at home for 5 days and then be out in public the following 5 days with a mask due to your COVID infection. If you develop worsening shortness of breath, cough, chest pain, high fevers please return to the emergency department for reevaluation. Please follow-up in a week at [facility]. Copy Copies To 1: GAVI DEGROOT JOSHUA T MD May 17, 2022 06:22 ADEBAYO HOYT MD May 17, 2022 09:08
[2022-05-17] MEDS ORDERED: BEBTELOVIMAB 175 MG/2 ML VIAL IV ONE (06:30)
--- NOTE | 2022-05-17 07:44 | Diagnostic Imaging Report ---
INDICATION: Chest pain. EXAMINATION: Chest 05/17/2022. COMPARISON: 04/06/2022 FINDINGS: There is a left-sided chest port with tip in the SVC. Heart and pulmonary vasculature normal. Lungs and pleural spaces clear. Old right clavicular fracture noted. There is no pneumothorax. No effusions. IMPRESSION: 1. Chronic findings with no acute cardiopulmonary process. Dictated by: Dictated on workstation # [id number]
[2022-05-17 07:58] LABS: AMPHETAMINE SCREEN, URINE POSITIVE (NEGATIVE); BARBITURATE SCREEN URINE NEGATIVE (NEGATIVE); BENZODIAZEPINES SCREEN URINE NEGATIVE (NEGATIVE); CANNABINOID SCREEN, URINE NEGATIVE (NEGATIVE); COCAINE SCREEN URINE NEGATIVE (NEGATIVE); METHADONE STAT NEGATIVE (NEGATIVE); OPIATE SCREEN URINE NEGATIVE (NEGATIVE); OXYCODONE STAT NEGATIVE (NEGATIVE); PROPOXYPHENE STAT NEGATIVE (NEGATIVE); TRICYCLIC ANTIDEPRESSANTS SCRE NEGATIVE (NEGATIVE)
[2022-05-17 09:23] VITALS: BP 130/76
== END 2022-05-17 09:23 | disposition home or self-care (01) ==
LOC: EDUNIT# 04:22 → ER 04:23
DX: U07.1 COVID-19 (principal); F15.10 Other stimulant abuse, uncomplicated; R77.8 Other specified abnormalities of plasma proteins; Z28.310 Unvaccinated for COVID-19
CPT/HCPCS: 36415; 71045; 80053; 80306; 83735; 83874; 84484; 85025; 85610; 85730; 86141; 87636; 93005; 93041

== ENCOUNTER 2022-05-18 04:28 | Emergency (ER) | payer MEDICAID ==
--- NOTE | 2022-05-18 05:05 | ED Respiratory ---
General Stated Complaint: COVID+ Source: patient (POOR HISTORIAN), old records (HLOA BRIGHT ) History of Present Illness Date Seen by Provider: May 18, 2022 Time Seen by Provider: 04:32 Initial Comments PT ARRIVES VIA [facility] FROM HOME IN [place] PT SEEN HERE 05/17/22 AND TESTED + FOR COVID PT RECEIVED MONOCLONAL ANTIBODIES WHILE IN ER, SHE IS AN AT RISK PT, AND UNABLE TO ACCURATELY REPORT ONSET OF SYMPTOMS. LAB, EKG AND CXR ALL WERE NON-ACUTE. ( PT HAS CHRONICALLY ELEVATED TROPONIN SINCE 2010, AND CARDIAC EVALUATIONS INCLUDING CARDIAC CATH IN 2018 WERE ALL ESSENTIALLY NORMAL. SHE REPORTED AT THAT TIME HER SYMPTOMS HAD BEEN GOING ON FOR 1-2 WEEKS PT HAS COPD AND IS SUPPOSED TO BE ON HOME O2 AT 4L/NC CONTINUOUSLY--O2 SAT IS CURRENTLY 98-99% ON O2 AT 2L/NC PT STATES SHE "JUST FEELS BAD" AND "WANTS ADMITTED TO THE HOSPITAL" --PT UNABLE TO ELABORATE ON SYMPTOMS NO INCREASE IN CHRONIC DYSPNEA NO NAUSEA/VOMITING C/O ONGOING RIGHT UPPER CHEST PAIN DENIES FEVER CLAIMS SHE LAST SMOKED ANYTHING "2 WEEKS AGO" PT WITH MULTITUDE OF VISITS FOR VARIOUS COMPLAINTS--MOST FOR DRUG / METHAMPHETAMINE USE, RESPIRATORY ISSUES, AND SEIZURES PT WITH LONGSTANDING HISTORY OF IV METHAMPHETAMINE USE, ALSO SMOKES IT. ALSO LONGSTANDING HISTORY OF ABUSE OF OTHER DRUGS WELL, INCLUDING RX DRUG ABUSE PCP: LILA, GRACIELA DUNLAP (HOLA BRIGHT ) Allergies and Home Medications Allergies Coded Allergies: nitrous oxide (Verified Allergy, Unknown, 06/08/07) Patient Home Medication List Home Medication List Reviewed: Yes (HOLA BRIGHT ) Acetaminophen (Tylenol Extra Strength) 500 Mg Tablet, 1,000 MG PO Q6H PRN for PAIN-MILD, (Reported) Entered as Reported by: ANTHONY RODRIGUEZ on 08/03/18 0904 Amlodipine Besylate (Amlodipine Besylate) 10 Mg Tablet, 5 MG PO BID, (Reported) Entered as Reported by: ANTHONY RODRIGUEZ on 07/07/19 1207 Carvedilol (Coreg) 25 Mg Tab, 25 MG PO BID, (Reported) Entered as Reported by: DAVID SANTANA on 11/29/19 1443 Cephalexin (Cephalexin) 500 Mg Tablet, 500 MG PO BID Prescribed by: MICHAEL BURRELL on 02/13/22 193 Dicyclomine HCl (Dicyclomine HCl) 20 Mg Tablet, 20 MG PO Q6H PRN for abdominal cramping Prescribed by: ADEBAYO FATIMA on 10/25/21 1050 Divalproex Sodium (Depakote) 250 Mg Tablet.dr, 250 MG PO TID, (Reported) Entered as Reported by: DAVID SANTANA on 02/26/21 1036 Famotidine (Acid Loan Originator (FAMOTIDINE)) 20 Mg Tablet, 20 MG PO BID PRN for HEARTBURN, (Reported) Entered as Reported by: DAVID SANTANA on 11/29/19 1444 Hydralazine HCl (Hydralazine HCl) 100 Mg Tablet, 100 MG PO TID, (Reported) Entered as Reported by: DAVID SANTANA on 11/29/19 1441 Levetiracetam (Levetiracetam) 500 Mg Tablet, 1,000 MG PO BID, (Reported) Entered as Reported by: DAVID SANTANA on 02/26/21 1036 Meclizine HCl (Meclizine HCl) 25 Mg Tablet, 25 MG PO DAILY PRN for DIZZINESS Prescribed by: GIULIANO NY on 02/06/22 1833 Ondansetron (Ondansetron Odt) 4 Mg Tab.rapdis, 4 MG PO Q8H PRN for nausea Prescribed by: ADEBAYO FATIMA on 10/25/21 1050 Phenazopyridine HCl (Pyridium) 100 Mg Tablet, 100 MG PO Q8H PRN for SPASMS Prescribed by: OCTAVIA KINNEY on 09/30/21 1147 Phenobarbital (Phenobarbital) 64.8 Mg Tablet, 129.6 MG PO BID, (Reported) Entered as Reported by: DAVID SANTANA on 11/29/19 1441 Sulfamethoxazole/Trimethoprim (Bactrim Ds Tablet) 1 Each Tablet, 1 EACH PO BID Prescribed by: OCTAVIA KINNEY on 09/30/21 1147 Review of Systems Review of Systems Constitutional: no symptoms reported EENTM: no symptoms reported Respiratory: see HPI Cardiovascular: see HPI Gastrointestinal: no symptoms reported Genitourinary: no symptoms reported Musculoskeletal: no symptoms reported Skin: no symptoms reported Psychiatric/Neurological: See HPI Hematologic/Lymphatic: No Symptoms Reported Immunological/Allergic: no symptoms reported (HOLA BRIGHT DO) Past Fxvcmmr-Tzugdi-Grdoct Hx Patient Social History Tobacco Use?: Yes Substance use?: Yes Substance type: Amphetamines, Methamphetamine, Misuse of prescript meds, Marijuana (HOLA BRIGHT DO) Immunizations Up To Date Tetanus Booster (TDap): Less than 5yrs PED Vaccines UTD: No First/Initial COVID19 Vaccinat: NONE Second COVID19 Vaccination Deacon: NONE Third COVID19 Vaccination Date: NONE (HOLA BRIGHT DO) Seasonal Allergies Seasonal Allergies: No (HOLA BRIGHT DO) Past Medical History Surgery/Hospitalization HX: L POWER PORT, HIGH CHOLESTEROL, HTN, RENAL STONES, GERD, PANCREATITIS, HEPATITIS, CH. 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, Menopausal Sexually Transmitted Disease: No HIV/AIDS: No Genitourinary: Yes Kidney Infection, Bladder Infection, Kidney Stones, Renal Failure, UTI-Chronic Gastrointestinal: Yes (HEPATITIS C) Abdominal Hernia, Gastroesophageal Reflux, Pancreatitis, Hepatitis Musculoskeletal: Yes (CHRONIC NECK AND BACK PAIN; POOR AMBULATION) Arthritis, Chronic Back Pain Endocrine: Yes (HGB AIC WAS 6.5 ON 12/23/18) Diabetes, Non-Insulin dep HEENT: Yes (POOR DENTITION) Loss of Vision: Denies Hearing Impairment: Denies Cancer: Yes Cervical Did You Recieve Any Treatments: Yes What Type of Treatment Did You: Surgical Intervention Psychosocial: Yes (POLYSUBSTANCE ABUSE) Anxiety, Bipolar, Depression Integumentary: No Blood Disorders: Yes (ANEMIA OF CHRONIC DISEASE) Adverse Reaction/Blood Tranf: No (HOLA BRIGHT DO) Family Medical History Abdominal aortic aneurysm 03 FATHER Alcoholism 03 FATHER 03 MOTHER 09 SISTER 09 SISTER Cancer 03 FATHER Cataract 03 FATHER 03 MOTHER Chest pain 03 MOTHER Family history: Diabetes mellitus 03 MOTHER Family history: Hypertension 03 MOTHER Family history: Thyroid disorder 03 MOTHER Headache 09 SISTER Heart disease 03 MOTHER History of drug abuse 03 FATHER 09 SISTER Myocardial infarction 03 MOTHER No Family History of: Luverne's disease Aphasia Cancer of colon Congenital heart disease Congestive heart failure Cystic fibrosis Dementia Dysphagia Family history: Allergy Family history: Alzheimer's disease Family history: Arthritis Family history: Asthma Family history: Breast disease Family history: Cardiovascular disease Family history: Coronary thrombosis Family history: Gastrointestinal disease Family history: Glaucoma Family history: Osteoporosis Hearing loss Hereditary disease History of - anemia History of - disorder History of - respiratory disease Human immunodeficiency virus (HIV) seropositivity Hypercholesterolemia Infertile Kidney disease Malignant neoplasm of lung Parkinson's disease Prostate cancer Psychotic disorder Seizure disorder Stroke Tuberculosis Visual impairment AAA, Heart Disease, Diabetes -SOCIAL HISTORY: -ETOH -OCCASIONAL USE -DRUGS-EXTENSIVE HISTORY OF IV METH USE--ALSO SMOKES IT, THC USE, RX DRUGS -SMOKES AT LEAST 1 PPD PAST SURGICAL HISTORY: -MULTIPLE CENTRAL LINES/PICC LINES -PORT LEFT CHEST PRESENT 07/29/20 -DIAGNOSTIC LAPAROSCOPY/LAPAROTOMY -MULTIPLE CYSTOSCOPIES WITH RIGHT URETERAL STENT PLACED AND LATER REMOVED -I&D OF ABSCESSES -MULTIPLE CARDIAC CATHS--NO INTERVENTION -HYSTERECTOMY WITH LATER BILATERAL SALPINGO-OOPHORECTOMY -UMBILICAL HERNIA REPAIR WITH MESH -BILATERAL MYRINGOTOMY TUBES -BLADDER SUSPENSION -MULTIPLE LEFT LEG SURGERIES DUE TO TRAUMA A CHILD -EGD -LEFT MASTOIDECTOMY NOTED ON CT 08/26/19--PT UNAWARE OF THIS PAST MEDICAL HISTORY: -HAS BEEN INTUBATED FOR RESPIRATORY FAILURE--LAST TIME WAS 08/26/19 -WEARS O2 AT 4L/NC CONTINUOUSLY -NON-ISCHEMIC CARDIOMYOPATHY -HAS HAD EXTERNAL DEFIBRILLATOR IN PAST -CHRONIC CHEST PAIN COMPLAINTS, WITH ELEVATED TROPONIN MULTIPLE TIMES AND DX WITH NSTEMI 02/2018--LAST CARDIAC CATH 02/2018--SHOWED MILD CAD/NO INTERVENTION LAST LEXISCAN STRESS TEST WAS NORMAL 07/12/19. LAST ECHOCARDIOGRAM 08/20/19--NON-ISCHEMIC CARDIOMYOPATHY WITH EF 55-65% -MITRAL REGURGITATION -TRICUSPID VALVE VEGETATIONS 2013 -CHF -MULTIPLE CARDIAC CATHS-NO INTERVENTION -POOR VENOUS ACCESS -TRAUMATIC BRAIN INJURY CHILD; -CVA WITH LEFT SIDED WEAKNESS -POOR BALANCE--IS SUPPOSED TO USE A WALKER -MULTIPLE EPISODES OF "ALTERED MENTAL STATUS" -MULTIPLE HEAD INJURIES DUE TO REPORTED DOMESTIC ABUSE -CHRONIC RENAL FAILURE--NO DIALYSIS -CHRONIC ABDOMINAL PAIN COMPLAINTS; -GASTRITIS -HEPATITIS C--NO TREATMENT -CHRONIC NECK AND BACK PAIN; POOR AMBULATION -ANEMIA OF CHRONIC DISEASE -LONG HISTORY OF NON-COMPLIANCE IN ALL ASPECTS OF CARE (HOLA BRIGHT DO) Physical Exam Vital Signs - First Documented 05/18/22 04:30 Temp 37.0 Pulse 80 Resp 16 B/P (MAP) 129/77 (94) Pulse Ox 97 (ADEBAYO FATIMA MD) Capillary Refill : (HOLA BRIGHT DO) Height: 5'3.00" Weight: 155lbs. 8.0oz. [id number]; 28.00 BMI Method:Stated General Appearance: WD/WN, no apparent distress, other (CONSTANT MOVEMENTS, VERY DRAMATIC, WITH CONSTANT GUTTERAL NOISES--ALL NORMAL BEHAVIOR FOR PT. NO DYSPEA; DIRTY, UNKEMPT) HEENT: PERRL/EOMI, other (POOR DENTITION) Neck: normal inspection Respiratory: normal breath sounds, no respiratory distress, no accessory muscle use, other (MARKED RIGHT UPPER ANTERIOR CHEST TENDERNESS. NO EXTERNAL EVIDENCE OF TRAUMA, NO SKIN RASH OR DISCOLORATION. NO CREPITANCE OR SUB Q AIR. ) Cardiovascular: regular rate, rhythm, no murmur Gastrointestinal: non tender, soft Extremities: no pedal edema Neurologic/Psychiatric: no motor/sensory deficits, alert, oriented x 3 Skin: normal color, warm/dry (HOLA BRIGHT DO) Focused Exam Lactate Level 05/18/22 05:05: Lactic Acid Level 1.20 (ADEBAYO FATIMA MD) Lactic Acid Level Laboratory Tests Test 05/18/22 05:05 Lactic Acid Level 1.20 MMOL/L (0.50-2.00) (ADEBAYO FATIMA MD) Procedures/Interventions Date of ETT Placement: Sep 17, 2019 Time of ETT Placement: 1744 (HOLA BRIGHT DO) Progress/Results/Core Measures Suspected Sepsis SIRS Temperature: Pulse: Respiratory Rate: Laboratory Tests 05/18/22 05:05: White Blood Count 5.3 Blood Pressure / Mean: 05/18/22 05:05: Lactic Acid Level 1.20 Laboratory Tests 05/18/22 05:05: Creatinine 1.28, INR Comment 0.9, Platelet Count 362, Total Bilirubin 0.2 (HOLA BRIGHT DO) Results/Orders Lab Results Laboratory Tests Test 05/18/22 05:05 05/18/22 05:15 05/18/22 05:50 Range/Units White Blood Count 5.3 4.3-11.0 10^3/uL Red Blood Count 4.17 3.80-5.11 10^6/uL Hemoglobin 11.4 L 11.5-16.0 g/dL Hematocrit 36 35-52 % Mean Corpuscular Volume 87 80-99 fL Mean Corpuscular Hemoglobin 27 25-34 pg Mean Corpuscular Hemoglobin Concent 32 32-36 g/dL Red Cell Distribution Width 15.3 H 10.0-14.5 % Platelet Count 362 130-400 10^3/uL Mean Platelet Volume 10.1 9.0-12.2 fL Immature Granulocyte % (Auto) 0 % Neutrophils (%) (Auto) 57 42-75 % Lymphocytes (%) (Auto) 31 12-44 % Monocytes (%) (Auto) 9 0-12 % Eosinophils (%) (Auto) 3 0-10 % Basophils (%) (Auto) 0 0-10 % Neutrophils # (Auto) 3.0 1.8-7.8 10^3/uL Lymphocytes # (Auto) 1.6 1.0-4.0 10^3/uL Monocytes # (Auto) 0.5 0.0-1.0 10^3/uL Eosinophils # (Auto) 0.2 0.0-0.3 10^3/uL Basophils # (Auto) 0.0 0.0-0.1 10^3/uL Immature Granulocyte # (Auto) 0.0 0.0-0.1 10^3/uL Erythrocyte Sedimentation Rate 41 H 0-30 MM/HR Prothrombin Time 12.0 L 12.2-14.7 SEC INR Comment 0.9 0.8-1.4 Activated Partial Thromboplast Time 39 H 24-35 SEC Sodium Level 135 135-145 MMOL/L Potassium Level 4.8 3.6-5.0 MMOL/L Chloride Level 103 98-107 MMOL/L Carbon Dioxide Level 22 21-32 MMOL/L Anion Gap 10 5-14 MMOL/L Blood Urea Nitrogen 37 H 7-18 MG/DL Creatinine 1.28 0.60-1.30 MG/DL Estimat Glomerular Filtration Rate 48 BUN/Creatinine Ratio 29 Glucose Level 99 70-105 MG/DL Lactic Acid Level 1.20 0.50-2.00 MMOL/L Calcium Level 8.7 8.5-10.1 MG/DL Corrected Calcium 9.1 8.5-10.1 MG/DL Magnesium Level 1.9 1.6-2.4 MG/DL Total Bilirubin 0.2 0.1-1.0 MG/DL Aspartate Amino Transf (AST/SGOT) 19 5-34 U/L Alanine Aminotransferase (ALT/SGPT) 31 0-55 U/L Alkaline Phosphatase 85 40-136 U/L C-Reactive Protein High Sensitivity 1.72 H 0.00-0.50 MG/DL B-Type Natriuretic Peptide 43.8 <100.0 PG/ML Total Protein 7.5 6.4-8.2 GM/DL Albumin 3.5 3.2-4.5 GM/DL Procalcitonin 0.13 H <0.10 NG/ML Acetaminophen Level < 10 L 10-30 UG/ML Serum Alcohol < 10 <10 MG/DL Blood Gas Puncture Site LEFT RAD Blood Gas Patient Temperature 98.2 Arterial Blood pH 7.41 7.37-7.43 Arterial Blood Partial Pressure CO2 36 35-45 MMHG Arterial Blood Partial Pressure O2 88 79-93 MMHG Arterial Blood HCO3 23 23-27 MMOL/L Arterial Blood Total CO2 23.6 21.0-31.0 MMOL/L Arterial Blood Oxygen Saturation 97 94-100 % Arterial Blood Base Excess -1.5 -2.5-2.5 MMOL/L Dominguez Test YES-POS Blood Gas Ventilator Setting NO Blood Gas Inspired Oxygen 2L NC Urine Color YELLOW Urine Clarity CLEAR Urine pH 6.0 5-9 Urine Specific [place] 1.010 L 1.016-1.022 Urine Protein NEGATIVE NEGATIVE Urine Glucose (UA) NEGATIVE NEGATIVE Urine Ketones NEGATIVE NEGATIVE Urine Nitrite NEGATIVE NEGATIVE Urine Bilirubin NEGATIVE NEGATIVE Urine Urobilinogen 0.2 < = 1.0 MG/DL Urine Leukocyte Esterase NEGATIVE NEGATIVE Urine RBC (Auto) NEGATIVE NEGATIVE Urine RBC NONE /HPF Urine WBC NONE /HPF Urine Crystals NONE /LPF Urine Bacteria NEGATIVE /HPF Urine Casts NONE /LPF Urine Mucus NEGATIVE /LPF Urine Culture Indicated NO Urine Opiates Screen NEGATIVE NEGATIVE Urine Oxycodone Screen NEGATIVE NEGATIVE Urine Methadone Screen NEGATIVE NEGATIVE Urine Propoxyphene Screen NEGATIVE NEGATIVE Urine Barbiturates Screen NEGATIVE NEGATIVE Ur Tricyclic Antidepressants Screen NEGATIVE NEGATIVE Urine Phencyclidine Screen NEGATIVE NEGATIVE Urine Amphetamines Screen POSITIVE H NEGATIVE Urine Methamphetamines Screen POSITIVE H NEGATIVE Urine Benzodiazepines Screen NEGATIVE NEGATIVE Urine Cocaine Screen NEGATIVE NEGATIVE Urine Cannabinoids Screen NEGATIVE NEGATIVE (ADEBAYO FATIMA MD) Vital Signs/I&O 05/18/22 05/18/22 05/18/22 04:30 04:30 04:30 Temp 37.0 Pulse 80 Resp 16 B/P (MAP) 129/77 (94) Pulse Ox 97 O2 Delivery Nasal Cannula Nasal Cannula Nasal Cannula O2 Flow Rate 2.00 2.00 2.00 (ADEBAYO FATIMA MD) Vital Signs/I&O Capillary Refill : (HOLA BRIGHT DO) Progress Note : Progress Note PLACED IN ISOLATION ROOM PPE WORN AT ALL TIMES SEPSIS PROTOCOL INITIATED. 0600--CARE TURNED OVER TO DR. FATIMA, ALL STUDIES PENDING. VITALS STABLE, AND O2 SATS 98-99% ON 2L/NC. (HOLA BRIGHT DO) Progress Note : Time: 07:07 Progress Note Patient returned to the emergency department this morning complaining of "feeling bad" and desiring admission for COVID 19 symptoms. Care was assumed from Dr. BRIGHT at shift change. Chest x-ray was pending. This has been done and is reviewed, haziness in the left lateral recess but no specific infiltrate identified. Labs have been reviewed and are within normal limits. Her vital signs have been stable. Her blood gas on 2 L of oxygen per nasal cannula is normal. She exhibits no increased work of breathing/respiratory distress. She appears well-hydrated. No clinical or objective findings to warrant further testing from the emergency department or admission at this time. Patient will be discharged home with reassurance, supportive care. All questions sought and answered. (ADEBAYO FATIMA MD) Diagnostic Imaging Diagonstic Imaging: Xray Plain Films/CT/US/NM/MRI: chest Comments no focal infiltrate, haziness left lower - interpreted by me Reviewed: Reviewed by Me (ADEBAYO FATIMA MD) Departure Impression Primary Impression: COVID-19 virus infection Additional Impression: Methamphetamine dependence Disposition: 01 HOME, SELF-CARE Condition: Stable Departure-Patient Inst. Decision time for Depature: 07:09 (ADEBAYO FATIMA MD) Referrals: [facility]/JADA (PCP) Primary Care Physician SILVIA DUNLAP APRN (Family) Primary Care Physician Patient Instructions: COVID-19 (DC) Add. Discharge Instructions: Drink plenty fluids to stay well-hydrated. Continue your daily medications as prescribed by your primary care doctor. Try to avoid using methamphetamine. Follow-up with your primary care in a week. Return to the emergency department for any new, concerning or emergent complaints Copy Copies To 1: GAVI DEGROOT LISA K DO May 18, 2022 05:05 ADEBAYO FATIMA MD May 18, 2022 07:10
[2022-05-18 05:18] LABS: BASOPHILS % (AUTO) 0 % (0-10); EOSINOPHILS # (AUTO) 0.2 10^3/uL (0.0-0.3); EOSINOPHILS % (AUTO) 3 % (0-10); HEMATOCRIT 36 % (35-52); HEMOGLOBIN 11.4 g/dL (11.5-16.0); LYMPHOCYTES # (AUTO) 1.6 10^3/uL (1.0-4.0); LYMPHOCYTES % (AUTO) 31 % (12-44); MEAN CORPUSCULAR HEMOGLOBIN 27 pg (25-34); MEAN CORPUSCULAR HGB CONC 32 g/dL (32-36); MEAN CORPUSCULAR VOLUME 87 fL (80-99); MEAN PLATELET VOLUME 10.1 fL (9.0-12.2); MONOCYTES # (AUTO) 0.5 10^3/uL (0.0-1.0); MONOCYTES % (AUTO) 9 % (0-12); NEUTROPHILS % (AUTO) 57 % (42-75); PLATELET COUNT 362 10^3/uL (130-400); WHITE BLOOD COUNT 5.3 10^3/uL (4.3-11.0)
[2022-05-18 05:29] LABS: ALBUMIN 3.5 GM/DL (3.2-4.5); CHLORIDE 103 MMOL/L (98-107); POTASSIUM 4.8 MMOL/L (3.6-5.0); SODIUM 135 MMOL/L (135-145)
[2022-05-18 05:30] LABS: CALCIUM 8.7 MG/DL (8.5-10.1)
[2022-05-18 05:32] LABS: GLUCOSE 99 MG/DL (70-105); INR 0.9 (0.8-1.4); TOTAL PROTEIN 7.5 GM/DL (6.4-8.2)
[2022-05-18 05:33] LABS: BILIRUBIN,TOTAL 0.2 MG/DL (0.1-1.0); CARBON DIOXIDE 22 MMOL/L (21-32)
[2022-05-18 05:35] LABS: ALKALINE PHOSPHATASE 85 U/L (40-136); CREATININE SERUM 1.28 MG/DL (0.60-1.30); GFR ESTIMATED 48
[2022-05-18 05:36] LABS: ABG BASE EXCESS -1.5 MMOL/L (-2.5-2.5); ABG OXYGEN SATURATION 97 % (94-100); ABG PCO2 36 MMHG (35-45); ABG PH 7.41 (7.37-7.43); ABG PO2 88 MMHG (79-93); ABG TCO2 23.6 MMOL/L (21.0-31.0)
[2022-05-18 05:36] LABS: BUN/CREATININE RATIO 29
[2022-05-18 05:38] LABS: ALANINE AMINOTRANSFERASE 31 U/L (0-55); MAGNESIUM 1.9 MG/DL (1.6-2.4)
[2022-05-18 05:39] LABS: ALLENS TEST YES-POS; INSPIRED O2 2L NC; PATIENT TEMP 98.2; VENTILATOR NO
[2022-05-18 05:42] LABS: ACETAMINOPHEN < 10 UG/ML (10-30)
[2022-05-18 05:46] LABS: ERYTHROCYTE SEDIMENTATION RATE 41 MM/HR (0-30)
[2022-05-18 06:11] LABS: BILIRUBIN,URINE NEGATIVE (NEGATIVE); CLARITY,URINE CLEAR; COLOR,URINE YELLOW; GLUCOSE, URINE (UA) NEGATIVE (NEGATIVE); KETONES,URINE NEGATIVE (NEGATIVE); LEUKOCYTE ESTERASE ,URINE NEGATIVE (NEGATIVE); NITRITE,URINE NEGATIVE (NEGATIVE); PROTEIN,URINE NEGATIVE (NEGATIVE)
[2022-05-18 06:24] LABS: AMPHETAMINE SCREEN, URINE POSITIVE (NEGATIVE); BARBITURATE SCREEN URINE NEGATIVE (NEGATIVE); BENZODIAZEPINES SCREEN URINE NEGATIVE (NEGATIVE); CANNABINOID SCREEN, URINE NEGATIVE (NEGATIVE); COCAINE SCREEN URINE NEGATIVE (NEGATIVE); METHADONE STAT NEGATIVE (NEGATIVE); OPIATE SCREEN URINE NEGATIVE (NEGATIVE); OXYCODONE STAT NEGATIVE (NEGATIVE); TRICYCLIC ANTIDEPRESSANTS SCRE NEGATIVE (NEGATIVE)
[2022-05-18 06:25] LABS: PROPOXYPHENE STAT NEGATIVE (NEGATIVE)
[2022-05-18 06:27] LABS: BACTERIA,URINE NEGATIVE /HPF
[2022-05-18 07:27] VITALS: BP 131/69
--- NOTE | 2022-05-18 07:33 | Diagnostic Imaging Report ---
EXAMINATION: Chest radiograph, portable AP view. DATE: 05/18/2022 7:04 AM INDICATION: 61-year-old female, dyspnea. COVID positive. COMPARISON: May 17, 2022 FINDINGS: There is a left-sided port catheter with tip overlying the mid SVC. Heart size and mediastinal contours are unchanged. There is no identified pneumothorax. There is no large pleural effusion. There are streaky opacities in the left lung base which are new. There is a redemonstrated chronic appearing deformity of the right clavicle. IMPRESSION: 1. Streaky opacities in the left lung base which may relate to atelectasis and/or infiltrate. Dictated by: Dictated on workstation # [id number]
== END 2022-05-18 07:27 | disposition home or self-care (01) ==
LOC: EDUNIT# 04:28 → ER 04:29
DX: U07.1 COVID-19 (principal); F15.20 Other stimulant dependence, uncomplicated; Z72.0 Tobacco use; Z73.0 Burn-out; Z28.310 Unvaccinated for COVID-19
CPT/HCPCS: 71045; 80053; 80306; 81000; 82805; 83605; 83735; 83880; 84145; 85025; 85610; 85652; 85730; 86141; 87040; 87077; 87088; 93041; 99284; G0480 ×2; 36415; 80320; 80329

== ENCOUNTER 2022-06-30 05:51 | Observation (INO) | payer MEDICAID ==
[~2022-06-30] VITALS: Ht 160 cm; Wt 74.7 kg
[2022-06-30] MEDS ORDERED: CALCIUM CARBONATE 500 MG (TUMS) TAB.CHEW PO PRN (09:30)
[2022-06-30] MEDS ORDERED: ONDANSETRON 4 MG (ZOFRAN) ORAL DISSOLVE TAB PO PRN (09:30)
[2022-06-30] MEDS ORDERED: ONDANSETRON 4 MG/2 ML (SDV) Z0FRAN IV PRN (09:30)
[2022-06-30] MEDS ORDERED: polyethylene glycoL POWDER 17 GM (MIRALAX) PACK PO PRN (09:30)
[2022-06-30] MEDS ORDERED: ANTACID SUSP 30 ML UDC (MYLANTA) PO PRN (09:30)
[2022-06-30] MEDS ORDERED: diphenhydrAMINE 50 MG/ML INJ (BENADRYL) IVP PRN (09:30)
[2022-06-30] MEDS ORDERED: ACETAMINOPHEN 325 MG TABLET PO PRN (09:30)
[2022-06-30] MEDS ORDERED: diphenhydrAMINE 25 MG TAB (BENADRYL) PO PRN (09:30)
[2022-06-30] MEDS ORDERED: MELATONIN 3 MG TABLET PO PRN (09:30)
[2022-06-30 09:52] LABS: BASOPHILS % (AUTO) 1 % (0-10); EOSINOPHILS # (AUTO) 0.1 10^3/uL (0.0-0.3); EOSINOPHILS % (AUTO) 2 % (0-10); HEMATOCRIT 38 % (35-52); HEMOGLOBIN 11.9 g/dL (11.5-16.0); LYMPHOCYTES # (AUTO) 1.7 10^3/uL (1.0-4.0); LYMPHOCYTES % (AUTO) 22 % (12-44); MEAN CORPUSCULAR HEMOGLOBIN 27 pg (25-34); MEAN CORPUSCULAR HGB CONC 31 g/dL (32-36); MEAN CORPUSCULAR VOLUME 86 fL (80-99); MEAN PLATELET VOLUME 9.6 fL (9.0-12.2); MONOCYTES # (AUTO) 0.7 10^3/uL (0.0-1.0); MONOCYTES % (AUTO) 8 % (0-12); NEUTROPHILS # (AUTO) 5.2 10^3/uL (1.8-7.8); NEUTROPHILS % (AUTO) 67 % (42-75); PLATELET COUNT 457 10^3/uL (130-400); WHITE BLOOD COUNT 7.8 10^3/uL (4.3-11.0)
[2022-06-30 10:09] LABS: POTASSIUM 4.6 MMOL/L (3.6-5.0)
[2022-06-30 10:15] LABS: CREATININE SERUM 1.52 MG/DL (0.60-1.30)
[2022-06-30] MEDS ORDERED: ENOXAPARIN 40 MG/0.4 ML (LOVENOX) SYR SC SCH (12:00)
[2022-06-30] MEDS ORDERED: ASPIRIN 81 MG CHEW (CHILDREN'S ASA) ONE (12:24)
[2022-06-30] MEDS: ASPIRIN 81 MG CHEW (CHILDREN'S ASA) PO SCH (13:18)
--- NOTE | 2022-06-30 13:51 | Consultation-Cardiology ---
HPI-Cardiology Cardiology Consultation: Date of Consultation 06/30/22 Time Seen by a Provider: 12:10 Date of Admission Attending Physician [facility] Admitting Physician Admitting Physician: Angella Xiong MD Attending Physician: Angella Xiong MD Consulting Physician JAMES GENTILE MD, MA, FACP, FACC, FSCAI, CCDS HPI: Chief Complaint: dizziness, weakness, chest discomfort 61 yo woman transferred to this hosp to Dr Xiong's svce from [facility] where she had presented for eval of gen weakness and malaise and dizziness. Also has chronic, intermittent chest discomfort: R or L parasternal, unrelated to exertion, mild, lasting a few min, several times a week, sharp or dull, mild in intensity, w/o radiation, unchanged in the recent past. Troponin at [facility] was mildly elevated and she was transferred here. She does not report swelling or palp or syncope. Chronic, mild, exertional shortness of breath. Denies n/v/d. Report last meth use to be several days ago. Reported have been positive for meth today at [facility] Review of Systems-Cardiology Review of Systems Constitutional: malaise, tiredness; No weight loss, No weight gain Eyes: No vision change Ears/Nose/Throat: No ear discharge, No nasal drainage, No recent hearing loss Respiratory: As described under HPI Cardiovascular: As described under HPI Gastrointestinal: As described under HPI Genitourinary: No dysuria, No hematuria, No urine frequency changes Musculoskeletal: back pain (chronic) Skin: No rash, No ulcerations Psychiatric/Neurological: No seizure, No focal weakness, No syncope Hematologic: No bleeding abnormalities RVR-Ggdbts-Gybsdi Hx Patient Social History Former smoker/When Quit: Oct 13, 2007 2nd Hand Smoke Exposure: No Alcohol Use?: No Substance type: Amphetamines, Methamphetamine Pt feels they are or have been: No Immunizations Up To Date Tetanus Booster (TDap): Less than 5yrs Date of Pneumonia Vaccine: Jul 13, 2012 Date of Influenza Vaccine: Jul 27, 2020 Past Medical History PMH As described under Assessment. Family Medical History Family Medical History: Documented family h/o father having a AAA. Mother having CAD. Family History: Abdominal aortic aneurysm 03 FATHER Alcoholism 03 FATHER 03 MOTHER 09 SISTER 09 SISTER Cancer 03 FATHER Cataract 03 FATHER 03 MOTHER Chest pain 03 MOTHER Family history: Diabetes mellitus 03 MOTHER Family history: Hypertension 03 MOTHER Family history: Thyroid disorder 03 MOTHER Headache 09 SISTER Heart disease 03 MOTHER History of drug abuse 03 FATHER 09 SISTER Myocardial infarction 03 MOTHER No Family History of: Isael's disease Aphasia Cancer of colon Congenital heart disease Congestive heart failure Cystic fibrosis Dementia Dysphagia Family history: Allergy Family history: Alzheimer's disease Family history: Arthritis Family history: Asthma Family history: Breast disease Family history: Cardiovascular disease Family history: Coronary thrombosis Family history: Gastrointestinal disease Family history: Glaucoma Family history: Osteoporosis Hearing loss Hereditary disease History of - anemia History of - disorder History of - respiratory disease Human immunodeficiency virus (HIV) seropositivity Hypercholesterolemia Infertile Kidney disease Malignant neoplasm of lung Parkinson's disease Prostate cancer Psychotic disorder Seizure disorder Stroke Tuberculosis Visual impairment Allergies and Home Medications Allergies Coded Allergies: nitrous oxide (Verified Allergy, Unknown, 06/08/07) Patient Home Medication List Home Medication List Reviewed: Yes Acetaminophen (Tylenol Extra Strength) 500 Mg Tablet, 1,000 MG PO Q6H PRN for PAIN-MILD, (Reported) Entered as Reported by: ANTHONY RODRIGUEZ on 08/03/18 0904 Amlodipine Besylate (Amlodipine Besylate) 10 Mg Tablet, 5 MG PO BID, (Reported) Entered as Reported by: ANTHONY RODRIGUEZ on 07/07/19 1207 Carvedilol (Coreg) 25 Mg Tab, 25 MG PO BID, (Reported) Entered as Reported by: DAVID SANTANA on 11/29/19 1443 Cephalexin (Cephalexin) 500 Mg Tablet, 500 MG PO BID Prescribed by: MICHAEL BURRELL on 02/13/22 1938 Dicyclomine HCl (Dicyclomine HCl) 20 Mg Tablet, 20 MG PO Q6H PRN for abdominal cramping Prescribed by: ADEBAYO FATIMA on 10/25/21 1050 Divalproex Sodium (Depakote) 250 Mg Tablet.dr, 250 MG PO TID, (Reported) Entered as Reported by: DAVID SANTANA on 02/26/21 1036 Famotidine (Acid Catalyst Recovery Operator (FAMOTIDINE)) 20 Mg Tablet, 20 MG PO BID PRN for HEARTBURN, (Reported) Entered as Reported by: DAVID SANTANA on 11/29/19 1444 Hydralazine HCl (Hydralazine HCl) 100 Mg Tablet, 100 MG PO TID, (Reported) Entered as Reported by: DAVID SANTANA on 11/29/19 1441 Levetiracetam (Levetiracetam) 500 Mg Tablet, 1,000 MG PO BID, (Reported) Entered as Reported by: DAVID SANTANA on 02/26/21 1036 Meclizine HCl (Meclizine HCl) 25 Mg Tablet, 25 MG PO DAILY PRN for DIZZINESS Prescribed by: GIULIANO [place] on 02/06/22 1833 Ondansetron (Ondansetron Odt) 4 Mg Tab.rapdis, 4 MG PO Q8H PRN for nausea Prescribed by: ADEBAYO FATIMA on 10/25/21 1050 Phenazopyridine HCl (Pyridium) 100 Mg Tablet, 100 MG PO Q8H PRN for SPASMS Prescribed by: OCTAVIA KINNEY on 09/30/21 1147 Phenobarbital (Phenobarbital) 64.8 Mg Tablet, 129.6 MG PO BID, (Reported) Entered as Reported by: DAVID SANTANA on 11/29/19 1441 Sulfamethoxazole/Trimethoprim (Bactrim Ds Tablet) 1 Each Tablet, 1 EACH PO BID Prescribed by: OCTAVIA KINNEY on 09/30/21 1147 Physical Exam-Cardiology Physical Exam Vital Signs/I&O 06/30/22 06/30/22 06/30/22 06/30/22 09:05 09:15 10:00 10:28 Pulse 93 92 115 Resp 22 22 B/P (MAP) 146/95 (112) 145/96 (112) Pulse Ox 95 95 O2 Delivery Nasal Cannula Nasal Cannula Nasal Cannula O2 Flow Rate 2.00 2.00 2.00 06/30/22 06/30/22 06/30/22 06/30/22 12:00 12:00 12:00 12:23 Temp 36.4 Pulse 102 92 Resp 27 B/P (MAP) 155/115 (128) Pulse Ox 99 94 O2 Delivery Room Air Nasal Cannula O2 Flow Rate 2.00 06/30/22 06/30/22 13:00 13:17 Pulse 102 Resp 18 B/P (MAP) 154/97 (116) Pulse Ox 95 96 O2 Delivery Nasal Cannula Room Air O2 Flow Rate 2.00 Capillary Refill : Constitutional: AAO x 3, well-developed, well-nourished HEENT: EOMI, hearing is well preserved; No xanthelasmas are seen Neck: carotid pulses are 2 + bilaterally Respiratory: No accessory muscle use; other (fair air entry, prolonged exp) Cardiovascular: regular rate-rhythm, S1 and S2, systolic murmur (soft SOURAV at card base) Gastrointestinal: No tender; soft; No guarding, No rebound; audible bowel sounds Extremities: No clubbing, No cyanosis, No significant edema Neurologic/Psychiatric: other (moves all limbs equally) Skin: No rash on exposed areas, No ulcerations on exposed areas Data Review Labs Laboratory Tests 06/30/22 09:44: White Blood Count 7.8, Red Blood Count 4.41, Hemoglobin 11.9, Hematocrit 38, Mean Corpuscular Volume 86, Mean Corpuscular Hemoglobin 27, Mean Corpuscular Hemoglobin Concent 31L, Red Cell Distribution Width 14.8H, Platelet Count 457H, Mean Platelet Volume 9.6, Immature Granulocyte % (Auto) 0, Neutrophils (%) (Auto) 67, Lymphocytes (%) (Auto) 22, Monocytes (%) (Auto) 8, Eosinophils (%) (Auto) 2, Basophils (%) (Auto) 1, Neutrophils # (Auto) 5.2, Lymphocytes # (Auto) 1.7, Monocytes # (Auto) 0.7, Eosinophils # (Auto) 0.1, Basophils # (Auto) 0.0, Immature Granulocyte # (Auto) 0.0, Sodium Level 138, Potassium Level 4.6, Chloride Level 107, Carbon Dioxide Level 17L, Anion Gap 14, Blood Urea Nitrogen 40H, Creatinine 1.52H, Estimat Glomerular Filtration Rate 39, BUN/Creatinine Ratio 26, Glucose Level 84, Calcium Level 9.0, Troponin I 0.056H Laboratory Tests 06/30/22 09:44 A/P-Cardiology Assessment/Admission Diagnosis STEVE Nonspecific chest discomfort - minimal troponin elevation - h/o chronically mildly elevated troponin since 2010 H/o meth use - meth positive at admission - cessation advised Chronic intermittent chest pain of undetermined etiology - Cardiac cath of 02-22-[address] Jenkins showed only mild CAD. LVEF 30%. - Echo of 05-28-[address] Landis showed LVEF 50-55%. Grade 1 diastolic dysfunction. LA dilated. Mild MR. Aortic root dilatation 3.7cm. - MPI of 05-28-[address] Landis showed no evidence of ischemia or infarction. LVEF 55-60% - Musculoskeletal origin suspected: chest pain reproducible with palpation and deep breathing HTN - uncontrolled - no evidence of renal artery stenosis seen at time of cardiac cath on 02-22-[address] Jenkins Hep C (+) COPD Tobaccoism - cessation advised Non-compliance with medications/instructions Discussion and Recomendations * iv fluids * look at troponin trend: if flat/declining, then d/c * advised off tobacco and meth and street drugs * monitor labs JAMES GENTILE MD FACP FAC CCDS Jun 30, 2022 13:51
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
[2022-06-30] MEDS: NS IV 1000 ML 1,000 ML IV SCH (16:50)
[2022-07-01] MEDS: NS IV 1000 ML 1,000 ML IV SCH ×2 (03:02→08:19)
[2022-07-01 05:17] LABS: HEMATOCRIT 37 % (35-52); HEMOGLOBIN 11.6 g/dL (11.5-16.0); MEAN CORPUSCULAR HEMOGLOBIN 27 pg (25-34); MEAN CORPUSCULAR HGB CONC 32 g/dL (32-36); MEAN CORPUSCULAR VOLUME 86 fL (80-99); MEAN PLATELET VOLUME 10.1 fL (9.0-12.2); PLATELET COUNT 437 10^3/uL (130-400); WHITE BLOOD COUNT 5.6 10^3/uL (4.3-11.0)
[2022-07-01 05:32] LABS: POTASSIUM 4.9 MMOL/L (3.6-5.0)
[2022-07-01 05:34] LABS: CALCIUM 8.9 MG/DL (8.5-10.1)
[2022-07-01 05:38] LABS: CREATININE SERUM 1.91 MG/DL (0.60-1.30)
[2022-07-01 05:40] LABS: MAGNESIUM 1.6 MG/DL (1.6-2.4)
[2022-07-01] MEDS ORDERED: meTOprolol SUCCINATE 100 MG (TOPROL XL) TAB PO NR (09:00)
--- NOTE | 2022-07-01 09:06 | Progress Note - Cardiology ---
Cardiology SOAP Progress Note Subjective: Sitting up in bed States she feels "great" and she wants to go home with her son who has come from [place] to take her home No c/o CP, SOB, palpitations, syncope No c/o n/v/d No c/o LE swelling She states she has not received her home antihypertensives since admission Objective: I&O/Vital Signs 07/01/22 07/01/22 07/01/22 07/01/22 03:00 04:00 04:00 05:00 Pulse 112 98 91 Resp 36 15 21 B/P (MAP) 187/112 (137) 185/108 (133) 168/101 (123) Pulse Ox 95 97 98 99 O2 Delivery Nasal Cannula Nasal Cannula Nasal Cannula Nasal Cannula O2 Flow Rate 2.00 2.00 2.00 2.00 07/01/22 07/01/22 07/01/22 07/01/22 06:00 07:00 08:00 08:00 Pulse 92 99 101 Resp 24 19 B/P (MAP) 171/110 (130) 190/108 (135) Pulse Ox 99 96 97 O2 Delivery Nasal Cannula Nasal Cannula Nasal Cannula O2 Flow Rate 2.00 2.00 2.00 07/01/22 07/01/22 07/01/22 07/01/22 10:58 12:00 12:00 13:00 Temp 36.1 Pulse 85 82 Resp 14 B/P (MAP) 136/80 (98) Pulse Ox 97 97 O2 Delivery Nasal Cannula Nasal Cannula O2 Flow Rate 2.00 2.00 07/01/22 13:00 Pulse 99 07/01/22 00:00 Intake Total 1630 ml Balance 1630 ml Weight (Pounds): 155 Weight (Ounces): 8.0 Weight (Calculated Kilograms): [id number] Constitutional: AAO x 3, well-developed, well-nourished Respiratory: No accessory muscle use; other (fair air entry, prolonged exp) Cardiovascular: regular rate-rhythm, S1 and S2, systolic murmur (soft SOURAV at card base) Gastrointestional: No tender; soft; No guarding, No rebound; audible bowel sounds Extremities: No clubbing, No cyanosis, No significant edema Neurologic/Psychiatric: other (moves all limbs equally) Skin: No rash on exposed areas, No ulcerations on exposed areas Results/Procedures: Labs Laboratory Tests 06/30/22 16:00: Troponin I 0.047H 07/01/22 04:50: Troponin I 0.062H, White Blood Count 5.6, Red Blood Count 4.30, Hemoglobin 11.6, Hematocrit 37, Mean Corpuscular Volume 86, Mean Corpuscular Hemoglobin 27, Mean Corpuscular Hemoglobin Concent 32, Red Cell Distribution Width 14.9H, Platelet Count 437H, Mean Platelet Volume 10.1, Sodium Level 140, Potassium Level 4.9, Chloride Level 105, Carbon Dioxide Level 18L, Anion Gap 17H, Blood Urea Nitrogen 42H, Creatinine 1.91H, Estimat Glomerular Filtration Rate 29, BUN/Creatinine Ratio 22, Glucose Level 104, Calcium Level 8.9, Magnesium Level 1.6 Microbiology 06/30/22 MRSA Screen - Final, Complete MRSA not isolated A/P: Assessment: STEVE - worsening renal function Nonspecific chest discomfort - minimal troponin elevation - h/o chronically mildly elevated troponin since 2010 - no c/o CP at this time H/o meth use - meth positive at admission - cessation advised Chronic intermittent chest pain of undetermined etiology - Cardiac cath of 02-22-[address] Jenkins showed only mild CAD. LVEF 30%. - Echo of 05-28-[address] Landis showed LVEF 50-55%. Grade 1 diastolic dysfunction. LA dilated. Mild MR. Aortic root dilatation 3.7cm. - MPI of 05-28-[address] Landis showed no evidence of ischemia or infarction. LVEF 55-60% - Musculoskeletal origin suspected: chest pain reproducible with palpation and deep breathing HTN - uncontrolled - no evidence of renal artery stenosis seen at time of cardiac cath on 02-22-[address] Jenkins Hep C (+) COPD Tobaccoism - cessation advised Non-compliance with medications/instructions Plan: * D/C iv fluids * Uncontrolled HTN - has not had home antihypertensives resumed - will restart home dose of Coreg, hydralazine and Norvasc (I personally called [facility] pharmacy and verified medications, dosages and last fill date of 05-27-2022); per the pharmacy she was taking 2 BB (Coreg and Toprol), we advise only one BB d/t risk of bradycardia. * troponin has been flat * advised off tobacco and meth and street drugs * monitor labs * We advise out pt f/u SILVIA MARCELO Jul 01, 2022 09:06
[2022-07-01] MEDS ORDERED: hydrALAZINE (APRESOLINE) 25 MG TAB PO NR (09:30)
[2022-07-01] MEDS ORDERED: amLODIPine 10 MG (NORVASC) TAB PO NR (09:30)
[2022-07-01] MEDS: ASPIRIN 81 MG CHEW (CHILDREN'S ASA) PO SCH (09:42)
[2022-07-01] MEDS ORDERED: MTP100TCR PO (10:54)
--- NOTE | 2022-07-01 11:33 | Progress Note - Hospitalist ---
MARIO AYERS 07/01/22 1133: Subjective HPI/CC On Admission Date Seen by Provider: Jul 01, 2022 Time Seen by Provider: 11:28 Michelle Gregory is a 61 year old female [facility] patient who presented as a transfer from [facility]. She was having dizziness. She was found to have an elevated troponin and was transferred to [facility]. She reports weakness. She had shortness of breath. She has had chest pain, but currently none. She denies palpitaitons. She denies nausea and vomiting. She has used methamphetamine but denies using in a couple weeks. Subjective/Events-last exam Michelle Gregory is a 61 year old female [facility] patient with a past medical history of HTN, CAD, CKD, prior [place], and methamphetamine use who presented as a transfer from [facility] on 06-30-2022. She reported having dizziness, SOB, and chest pain. She was found to have an elevated troponin and was transferred to [facility]. She denies palpitations. She denies nausea and vomiting. She has used methamphetamine before but denies using in the last couple weeks. Upon admission she was found to have elevated troponins of .056. Her EKG showed no ST segment elevation and was given aspirin and started on lovenox. Cardiology was con sulted. Her past cardiac history show a cardiac cath done on 02-22-[address] Jenkins showing only mild CAD, LVEF 30%. An echo on 05-28-[address] Landis showed LVEF 50-55%, Grade 1 diastolic dysfunction, LA dilated, Mild MR, Aortic root dilatation 3.7cm. And lastly, a MPI on 05-28-[address] Landis showed no evidence of ischemia or infarction, LVEF 55-60%. She was without her HTN medications since admission and her BP subsequently was elevated at 190/108. She was since started back on her home HTN medications by cardiology, which include Coreg, hydralazine and Norvasc on 07-01-2022. Which has slowly dropped her blood pressure. 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 She was screened for MRSA which came back negative. Mild ST segment depression was seen this morning on her telemetry unit. Encounter Impression 07-01-2022: She is in good spirits today, slept well She has no complaints of pain She denies any chest pain, N/V, or SOB She says her son is coming into town to help check on her She is eating okay, and bowel movements active Blood pressure is elevated at 190/108. Objective Exam Vital Signs Vital Signs Date Time Temp Pulse Resp B/P (MAP) Pulse Ox O2 Delivery O2 Flow Rate FiO2 07/01/22 08:00 97 Nasal Cannula 2.00 07/01/22 08:00 101 19 190/108 (135) 06/30/22 15:22 36.8 Capillary Refill : General Appearance: No Apparent Distress, WD/WN HEENT: PERRL/EOMI Neck: Full Range of Motion, Normal Inspection Respiratory: Chest Non Tender, Normal Breath Sounds Cardiovascular: Regular Rate, Rhythm, No Edema, No Gallop Gastrointestinal: Normal Bowel Sounds, No Organomegaly Rectal: Deferred Back: Normal Inspection, No CVA Tenderness Extremity: Normal Capillary Refill, Normal Inspection Neurologic/Psychiatric: Alert, Oriented x3 Skin: Normal Color, Warm/Dry Lymphatic: No Adenopathy Results/Procedures Lab Laboratory Tests 07/01/22 04:50 Patient resulted labs reviewed. Imaging: Reviewed Imaging Report Assessment/Plan Assessment and Plan Assess & Plan/Chief Complaint Chest pain/Type 2 NSTEMI Troponin elevation Troponins monitored History of chronically mildly elevated troponin since 2010 Aspirin Administered Chronic HTN Started back on home medication of Coreg, Norvasc, and Hydralazine. Monitor BP COPD Follow up with Outpatient PCP STEVE Increasing Creatinine Monitor Labs CKD Follow up with outpatient PCP GFR of 29 Drug abuse History of methamphetamine use Cessation advised Chronic intermittent chest pain of undetermined etiology Cardiac cath on 02-22-[address] Jenkins showed only mild CAD. LVEF 30%. Echo on 05-28-[address] Landis showed LVEF 50-55%. Grade 1 diastolic dysfunction. LA dilated. Mild MR. Aortic root dilatation 3.7cm. MPI on 05-28-[address] Landis showed no evidence of ischemia or infarction. LVEF 55-60% Tobacco Abuse Cessation advised Non Compliant with medication DEEPIKA VALDOVINOS DO 07/02/22 0459: Supervisory-Addendum Brief Verification & Attestation Participated in pt care: history, MDM, physical Personally performed: exam, history, MDM, supervision of care Care discussed with: Medical Student Procedures: n/a Results interpretation: Verified all documentation Verification and Attestation of Medical Student E/M Service A medical student performed and documented this service in my presence. I reviewed and verified all information documented by the medical student and made modifications to such information, when appropriate. I personally performed the physical exam and medical decision making. Deepika Valdovinos, Jul 02, 2022,04:59 MARIO AYERS Jul 01, 2022 11:33 DEEPIKA VALDOVINOS DO Jul 02, 2022 04:59
--- NOTE | 2022-07-01 11:47 | Progress Note - Cardiology ---
Cardiology SOAP Progress Note Subjective: No cp or palp or syncope No shortness of breath No n/v/d Gen weakness Objective: I&O/Vital Signs 06/30/22 07/01/22 07/01/22 07/01/22 23:59 00:00 01:00 01:00 Pulse 86 99 91 Resp 18 18 B/P (MAP) 166/106 (126) 181/116 (137) Pulse Ox 98 100 O2 Delivery Nasal Cannula Nasal Cannula Nasal Cannula O2 Flow Rate 2.00 2.00 2.00 07/01/22 07/01/22 07/01/22 07/01/22 02:00 03:00 04:00 04:00 Pulse 96 112 98 Resp 23 36 15 B/P (MAP) 171/109 (129) 187/112 (137) 185/108 (133) Pulse Ox 92 95 97 98 O2 Delivery Nasal Cannula Nasal Cannula Nasal Cannula Nasal Cannula O2 Flow Rate 2.00 2.00 2.00 2.00 07/01/22 07/01/22 07/01/22 07/01/22 05:00 06:00 07:00 08:00 Pulse 91 92 99 101 Resp 19 B/P (MAP) 168/101 (123) 171/110 (130) 190/108 (135) Pulse Ox 99 99 96 O2 Delivery Nasal Cannula Nasal Cannula Nasal Cannula O2 Flow Rate 2.00 2.00 2.00 07/01/22 08:00 Pulse Ox 97 O2 Delivery Nasal Cannula O2 Flow Rate 2.00 07/01/22 00:00 Intake Total 1630 ml Balance 1630 ml Weight (Pounds): 155 Weight (Ounces): 8.0 Weight (Calculated Kilograms): [id number] Constitutional: AAO x 3, well-developed, well-nourished Respiratory: No accessory muscle use; other (fair air entry, prolonged exp) Cardiovascular: regular rate-rhythm, S1 and S2, systolic murmur (soft SOURAV at card base) Gastrointestional: No tender; soft; No guarding, No rebound; audible bowel sounds Extremities: No clubbing, No cyanosis, No significant edema Neurologic/Psychiatric: other (moves all limbs equally) Skin: No rash on exposed areas, No ulcerations on exposed areas Results/Procedures: Labs Laboratory Tests 06/30/22 16:00: Troponin I 0.047H 07/01/22 04:50: Troponin I 0.062H, White Blood Count 5.6, Red Blood Count 4.30, Hemoglobin 11.6, Hematocrit 37, Mean Corpuscular Volume 86, Mean Corpuscular Hemoglobin 27, Mean Corpuscular Hemoglobin Concent 32, Red Cell Distribution Width 14.9H, Platelet Count 437H, Mean Platelet Volume 10.1, Sodium Level 140, Potassium Level 4.9, Chloride Level 105, Carbon Dioxide Level 18L, Anion Gap 17H, Blood Urea Nitrogen 42H, Creatinine 1.91H, Estimat Glomerular Filtration Rate 29, BUN/Creatinine Ratio 22, Glucose Level 104, Calcium Level 8.9, Magnesium Level 1.6 Microbiology 06/30/22 MRSA Screen - Final, Complete MRSA not isolated Laboratory Tests 06/30/22 09:44 07/01/22 04:50 A/P: Assessment: STEVE - worsening renal function, managed by the Med ce Chronic troponin elevation of undetermined etiology - no evidence of ac NSTEMI or ACS H/o meth use - meth positive at admission - cessation advised Chronic intermittent chest pain of undetermined etiology - Cardiac cath of 02-22-[address] Jenkins showed only mild CAD. LVEF 30%. - Echo of 05-28-[address] Landis showed LVEF 50-55%. Grade 1 diastolic dysfunction. LA dilated. Mild MR. Aortic root dilatation 3.7cm. - MPI of 05-28-[address] Landis showed no evidence of ischemia or infarction. LVEF 55-60% - Musculoskeletal origin suspected: chest pain reproducible with palpation and deep breathing HTN - uncontrolled - no evidence of renal artery stenosis seen at time of cardiac cath on 02-22-[address] Jenkins Hep C (+) COPD Tobaccoism - cessation advised Non-compliance with medications/instructions Plan: * D/C iv fluids * Uncontrolled HTN - has not had home antihypertensives resumed - will restart home dose of Coreg, hydralazine and Norvasc (I personally called Jr[facility] pharmacy and verified medications, dosages and last fill date of 05-27-2022); per the pharmacy she was taking 2 BB (Coreg and Toprol), we advise only one BB d/t risk of bradycardia. * advised off tobacco and meth and street drugs * monitor labs * We advise out pt f/u JAMES GENTILE MD FACP FAC CCDS Jul 01, 2022 11:47
[2022-07-01] MEDS ORDERED: hydrALAZINE (APRESOLINE) 25 MG TAB PO SCH (13:00)
[2022-07-01] MEDS ORDERED: CARV12.53 PO (13:25)
[2022-07-01] MEDS ORDERED: AMLO-251 PO (13:25)
[2022-07-01] MEDS ORDERED: HYDR100T27 PO (13:25)
[2022-07-01] MEDS ORDERED: LEVE500T6 PO (13:25)
--- NOTE | 2022-07-01 13:27 | Discharge Summary ---
Discharge Summary Hospital Course Was the Problem List Reviewed?: Yes Problems/Dx: (1) Chest wall pain Status: Acute (2) Elevated troponin Status: Acute (3) Methamphetamine dependence, continuous Status: Acute (4) Chronic kidney disease, stage 3 Status: Acute Qualifiers: Qualified Codes: N18.32 - Chronic kidney disease, stage 3b Hospital Course Date of Admission: Jun 30, 2022 at 09:00 Admission Diagnosis : Family Physician/Provider: Tamia Sharp Aprn Date of Discharge: 07/01/22 Discharge Diagnosis: [ ] Hospital Course: Michelle Gregory is a 61 year old female [facility] patient with a past medical history of HTN, CAD, CKD, prior [place], and methamphetamine use who presented as a transfer from [facility] on 06-30-2022. She reported having dizziness, SOB, and chest pain. She was found to have an elevated troponin and was transferred to [facility]. She denies palpitations. She denies nausea and vomiting. She has used methamphetamine before but denies using in the last couple weeks. Upon admission she was found to have elevated troponins of .056. Her EKG showed no ST segment elevation and was given aspirin and started on lovenox. Cardiology was consulted. Her past cardiac history show a cardiac cath done on 02-22-[address] Jenkins showing only mild CAD, LVEF 30%. An echo on 05-28-[address] Landis showed LVEF 50-55%, Grade 1 diastolic dysfunction, LA dilated, Mild MR, Aortic root dilatation 3.7cm. And lastly, a MPI on 05-28-[address] Landis showed no evidence of ischemia or infarction, LVEF 55-60%. She was without her HTN medications since admission and her BP subsequently was elevated at 190/108. She was since started back on her home HTN medications by cardiology, which include Coreg, hydralazine and Norvasc on 07-01-2022. Which has slowly dropped her blood pressure. Troponins were minimally elevated throughout stay, but have been chronically elevated since 2010. She was screened for MRSA which came back negative. Mild ST segment depression was seen this morning on her telemetry unit. Labs and Pending Lab Test: Laboratory Tests 06/30/22 16:00: Troponin I 0.047H 07/01/22 04:50: Troponin I 0.062H, White Blood Count 5.6, Red Blood Count 4.30, Hemoglobin 11.6, Hematocrit 37, Mean Corpuscular Volume 86, Mean Corpuscular Hemoglobin 27, Mean Corpuscular Hemoglobin Concent 32, Red Cell Distribution Width 14.9H, Platelet Count 437H, Mean Platelet Volume 10.1, Sodium Level 140, Potassium Level 4.9, Chloride Level 105, Carbon Dioxide Level 18L, Anion Gap 17H, Blood Urea Nitrogen 42H, Creatinine 1.91H, Estimat Glomerular Filtration Rate 29, BUN/Creatinine Ratio 22, Glucose Level 104, Calcium Level 8.9, Magnesium Level 1.6 Microbiology 06/30/22 MRSA Screen - Final, Complete MRSA not isolated Home Meds Active Reported Metoprolol Succinate 100 Mg Tab.er.24h 100 Mg PO DAILY Levetiracetam 500 Mg Tablet 1,000 Mg PO BID TAKES 2 (500MG) TABS Acid 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 (FAMOTIDINE) (Famotidine) 20 Mg Tablet 20 Mg PO BID PRN Hydralazine HCl 100 Mg Tablet 100 Mg PO TID Amlodipine Besylate 10 Mg Tablet 10 Mg PO DAILY Assessment/Pt Instructions pcp 1 week Discharge Planning: <30 minutes discharge planning Discharge Instructions Discharge Diet: No Restrictions Discharge Physical Examination Vital Signs Vital Signs Date Time Temp Pulse Resp B/P (MAP) Pulse Ox O2 Delivery O2 Flow Rate FiO2 07/01/22 13:00 99 07/01/22 12:00 14 136/80 (98) 97 Nasal Cannula 2.00 07/01/22 10:58 36.1 General Appearance: No Apparent Distress, WD/WN, Chronically ill Allergies: Coded Allergies: nitrous oxide (Verified Allergy, Unknown, 06/08/07) Discharge Summary Date of Admission Jun 30, 2022 at 09:00 Date of Discharge Discharge Date: Jul 01, 2022 Admission Diagnosis Elevated troponin Discharge Diagnosis (1) Chest wall pain Status: Acute (2) Elevated troponin Status: Acute (3) Methamphetamine dependence, continuous Status: Acute (4) Chronic kidney disease, stage 3 Status: Acute Qualifiers: Qualified Codes: N18.32 - Chronic kidney disease, stage 3b RAJAN VALDOVINOS DO Jul 01, 2022 13:27
[2022-07-01] MEDS ORDERED: HEParin (CENTRAL IV FLUSH) 500 UNIT/5 ML SYR IV ONE (14:00)
[2022-07-01] MEDS ORDERED: HEParin (CENTRAL IV FLUSH) 500 UNIT/5 ML SYR ONE (14:00)
[2022-07-02] MEDS ORDERED: meTOprolol SUCCINATE 100 MG (TOPROL XL) TAB PO SCH (09:00)
[2022-07-02] MEDS ORDERED: amLODIPine 5 MG (NORVASC) TAB PO SCH (09:00)
== END 2022-07-01 14:57 | disposition home or self-care (01) ==
LOC: ICU 09:00
PROVIDERS: ADMIT Internal Medicine; ATTEND Internal Medicine
DX: R07.89 Other chest pain (principal); F15.20 Other stimulant dependence, uncomplicated; R74.8 Abnormal levels of other serum enzymes; N18.30 Chronic kidney disease, stage 3 unspecified; N17.9 Acute kidney failure, unspecified; I10 Essential (primary) hypertension; J44.9 Chronic obstructive pulmonary disease, unspecified; F17.210 Nicotine dependence, cigarettes, uncomplicated; B19.20 Unspecified viral hepatitis C without hepatic coma
CPT/HCPCS: 80048 ×2; 83735; 84484 ×2; 85025; 85027; 87081; 93005; 96372; G0378; G0379; 36415

== ENCOUNTER 2022-10-25 21:43 | Emergency (ER) | payer MEDICAID ==
[~2022-10-25] VITALS: Ht 160 cm; Wt 58.0 kg
[~2022-10-25 21:43] MED LIST changes: +ALBU8.5H6 IH; +CARV12.53 PO
--- NOTE | 2022-10-25 22:03 | ED Back Pain ---
General Chief Complaint: Back Problems Stated Complaint: RIGHT FLANK PAIN Source of Information: Patient, Old Records History of Present Illness Date Seen by Provider: Oct 25, 2022 Time Seen by Provider: 21:50 Initial Comments PT ARRIVES VIA [facility] FROM HOME C/O RIGHT FLANK PAIN / LOWER RIB PAIN --STARTED LAST NIGHT, BUT HAS GOTTEN MUCH WORSE THROUGHOUT THE DAY TODAY PAIN IS WORSE WITH CERTAIN MOVEMENTS SHE HAS NOT TAKEN ANYTHING FOR PAIN AT ANY TIME HAS SOME NAUSEA AND VOMITED X 2 YESTERDAY. NONE TODAY HAD NORMAL BM TODAY HAS HAD SOME DIFFICULTY URINATING AND PAIN ON URINATION-ESPECIALLY AT THE END OF VOIDING NO FEVER/SWEATS/CHILLS NO INJURY OR UNUSUAL ACTIVITY. NO COUGH OR SHORTNESS OF BREATH SHE HAS A HISTORY OF CHRONIC BACK PAIN AND KIDNEY STONES SHE IS LONGSTANDING METH USER, INCLUDING IV USE--ALSO SMOKES IT. SHE ALSO SMOKES AT LEAST 1 PPD OF CIGARETTES Other Comments PCP: [facility] [place] Allergies and Home Medications Allergies Coded Allergies: nitrous oxide (Verified Allergy, Unknown, 06/08/07) Patient Home Medication List Home Medication List Reviewed: Yes Amlodipine Besylate (Amlodipine Besylate) 10 Mg Tablet, 10 MG PO DAILY Prescribed by: RAJAN VALDOVINOS on 07/01/22 1325 Carvedilol (Carvedilol) 12.5 Mg Tablet, 25 MG PO BID Prescribed by: RAJAN VALDOVINOS on 07/01/22 1325 Cyclobenzaprine HCl (Cyclobenzaprine HCl) 10 Mg Tablet, 10 MG PO Q8H PRN for SPASMS Prescribed by: HOLA BRIGHT on 10/26/22 0009 Famotidine (Acid Traffic Coordinator (FAMOTIDINE)) 20 Mg Tablet, 20 MG PO BID PRN for HEARTBURN, (Reported) Entered as Reported by: DAVID SANTANA on 11/29/19 1444 Hydralazine HCl (Hydralazine HCl) 100 Mg Tablet, 100 MG PO TID Prescribed by: RAJAN VALDOVINOS on 07/01/22 1325 Levetiracetam (Levetiracetam) 500 Mg Tablet, 1,000 MG PO BID Prescribed by: RAJAN VALDOVINOS on 07/01/22 1325 Review of Systems Constitutional: no symptoms reported Respiratory: no symptoms reported Cardiovascular: no symptoms reported Gastrointestinal: see HPI Genitourinary: see HPI Musculoskeletal: see HPI Skin: no symptoms reported; No rash Psychiatric/Neurological: No Symptoms Reported Past Mewbfhh-[id number]-[id number] Hx Patient Social History Tobacco Use?: Yes Tobacco type used: Cigarettes Smoking Status: Current Everyday Smoker Substance use?: Yes Substance type: Methamphetamine Alcohol Use?: No Immunizations Up To Date Tetanus Booster (TDap): Less than 5yrs PED Vaccines UTD: No First/Initial COVID19 Vaccinat: NONE Second COVID19 Vaccination Deacon: NONE Third COVID19 Vaccination Date: NONE Seasonal Allergies Seasonal Allergies: No Past Medical History Surgery/Hospitalization HX: L POWER PORT, HIGH CHOLESTEROL, HTN, RENAL STONES, GERD, PANCREATITIS, HEPATITIS, CH. 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, Menopausal Sexually Transmitted Disease: No HIV/AIDS: No Genitourinary: Yes Kidney Infection, Bladder Infection, Kidney Stones, Renal Failure, UTI-Chronic Gastrointestinal: Yes (HEPATITIS C) Abdominal Hernia, Gastroesophageal Reflux, Pancreatitis, Hepatitis Musculoskeletal: Yes (CHRONIC NECK AND BACK PAIN; POOR AMBULATION) Arthritis, Chronic Back Pain Endocrine: Yes (HGB AIC WAS 6.5 ON 12/23/18) Diabetes, Non-Insulin dep HEENT: Yes (POOR DENTITION) Loss of Vision: Denies Hearing Impairment: Denies Cancer: Yes Cervical Did You Recieve Any Treatments: Yes What Type of Treatment Did You: Surgical Intervention Psychosocial: Yes (POLYSUBSTANCE ABUSE) Anxiety, Bipolar, Depression Integumentary: No Blood Disorders: Yes (ANEMIA OF CHRONIC DISEASE) Adverse Reaction/Blood Tranf: No Family Medical History Abdominal aortic aneurysm 03 FATHER Alcoholism 03 FATHER 03 MOTHER 09 SISTER 09 SISTER Cancer 03 FATHER Cataract 03 FATHER 03 MOTHER Chest pain 03 MOTHER Family history: Diabetes mellitus 03 MOTHER Family history: Hypertension 03 MOTHER Family history: Thyroid disorder 03 MOTHER Headache 09 SISTER Heart disease 03 MOTHER History of drug abuse 03 FATHER 09 SISTER Myocardial infarction 03 MOTHER No Family History of: [place]'s disease Aphasia Cancer of colon Congenital heart disease Congestive heart failure Cystic fibrosis Dementia Dysphagia Family history: Allergy Family history: Alzheimer's disease Family history: Arthritis Family history: Asthma Family history: Breast disease Family history: Cardiovascular disease Family history: Coronary thrombosis Family history: Gastrointestinal disease Family history: Glaucoma Family history: Osteoporosis Hearing loss Hereditary disease History of - anemia History of - disorder History of - respiratory disease Human immunodeficiency virus (HIV) seropositivity Hypercholesterolemia Infertile Kidney disease Malignant neoplasm of lung Parkinson's disease Prostate cancer Psychotic disorder Seizure disorder Stroke Tuberculosis Visual impairment AAA, Heart Disease, Diabetes -SOCIAL HISTORY: -ETOH -OCCASIONAL USE -DRUGS-EXTENSIVE HISTORY OF IV METH USE--ALSO SMOKES IT, THC USE, RX DRUGS -SMOKES AT LEAST 1 PPD PAST SURGICAL HISTORY: -MULTIPLE CENTRAL LINES/PICC LINES -PORT LEFT CHEST PRESENT 07/29/20 -DIAGNOSTIC LAPAROSCOPY/LAPAROTOMY -MULTIPLE CYSTOSCOPIES WITH RIGHT URETERAL STENT PLACED AND LATER REMOVED -I&D OF ABSCESSES -MULTIPLE CARDIAC CATHS--NO INTERVENTION -HYSTERECTOMY WITH LATER BILATERAL SALPINGO-OOPHORECTOMY -UMBILICAL HERNIA REPAIR WITH MESH -BILATERAL MYRINGOTOMY TUBES -BLADDER SUSPENSION -MULTIPLE LEFT LEG SURGERIES DUE TO TRAUMA A CHILD -EGD -LEFT MASTOIDECTOMY NOTED ON CT 08/26/19--PT UNAWARE OF THIS PAST MEDICAL HISTORY: -HAS BEEN INTUBATED FOR RESPIRATORY FAILURE--LAST TIME WAS 08/26/19 -WEARS O2 AT 4L/NC CONTINUOUSLY -NON-ISCHEMIC CARDIOMYOPATHY -HAS HAD EXTERNAL DEFIBRILLATOR IN PAST -CHRONIC CHEST PAIN COMPLAINTS, WITH ELEVATED TROPONIN MULTIPLE TIMES AND DX WITH NSTEMI 02/2018--LAST CARDIAC CATH 02/2018--SHOWED MILD CAD/NO INTERVENTION LAST LEXISCAN STRESS TEST WAS NORMAL 07/12/19. LAST ECHOCARDIOGRAM 08/20/19--NON-ISCHEMIC CARDIOMYOPATHY WITH EF 55-65% -MITRAL REGURGITATION -TRICUSPID VALVE VEGETATIONS 2013 -CHF -MULTIPLE CARDIAC CATHS-NO INTERVENTION -POOR VENOUS ACCESS -TRAUMATIC BRAIN INJURY CHILD; -CVA WITH LEFT SIDED WEAKNESS -POOR BALANCE--IS SUPPOSED TO USE A WALKER -MULTIPLE EPISODES OF "ALTERED MENTAL STATUS" -MULTIPLE HEAD INJURIES DUE TO REPORTED DOMESTIC ABUSE -CHRONIC RENAL FAILURE--NO DIALYSIS -CHRONIC ABDOMINAL PAIN COMPLAINTS; -GASTRITIS -HEPATITIS C--NO TREATMENT -CHRONIC NECK AND BACK PAIN; POOR AMBULATION -ANEMIA OF CHRONIC DISEASE -LONG HISTORY OF NON-COMPLIANCE IN ALL ASPECTS OF CARE Physical Exam Vital Signs Vital Signs - First Documented 10/25/22 21:52 Pulse 105 Resp 18 B/P (MAP) 115/100 (105) Pulse Ox 95 O2 Delivery Room Air Capillary Refill : Height, Weight, BMI Height: 5'3.00" Weight: 155lbs. 8.0oz. 70.479672ox; 29.17 BMI Method:Stated General Appearance: No Apparent Distress, WD/WN, Other (CONSTANT MOVEMENTS OF ENTIRE BODY, FREQUENT GUTTERAL NOISES--NORMAL BASELINE FOR PT. DIRTY, MALODOROUS AND REEKS OF CIGARETTES. ) Neck: Normal Inspection Cardiovascular: Regular Rate, Rhythm, No Murmur Respiratory: Normal Breath Sounds, No Accessory Muscle Use, No Respiratory Distress, Other (DIFFUSE RIGHT LOWER CHEST WALL TENDERNESS--POSTERIOR. LATERAL AND ANTERIOR. ) Gastrointestinal: Soft, Tenderness (DIFFUSE RIGHT FLANK TENDERNESS) Back: CVA Tenderness (R) Extremity: Normal Capillary Refill, No Pedal Edema Neurologic/Psychiatric: Alert, Oriented x3, No Motor/Sensory Deficits, cake maker II- XII Norm as Tested Skin: Normal Color, Warm/Dry; No Rash Procedures/Interventions Date of ETT Placement: Sep 17, 2019 Time of ETT Placement: 1745 Progress/Results/Core Measures Results/Orders Lab Results Laboratory Tests Test 10/25/22 22:01 10/25/22 22:42 Range/Units White Blood Count 7.5 4.3-11.0 10^3/uL Red Blood Count 4.58 3.80-5.11 10^6/uL Hemoglobin 12.2 11.5-16.0 g/dL Hematocrit 39 35-52 % Mean Corpuscular Volume 85 80-99 fL Mean Corpuscular Hemoglobin 27 25-34 pg Mean Corpuscular Hemoglobin Concent 31 L 32-36 g/dL Red Cell Distribution Width 15.7 H 10.0-14.5 % Platelet Count 395 130-400 10^3/uL Mean Platelet Volume 9.7 9.0-12.2 fL Immature Granulocyte % (Auto) 0 % Neutrophils (%) (Auto) 63 42-75 % Lymphocytes (%) (Auto) 26 12-44 % Monocytes (%) (Auto) 7 0-12 % Eosinophils (%) (Auto) 2 0-10 % Basophils (%) (Auto) 1 0-10 % Neutrophils # (Auto) 4.7 1.8-7.8 10^3/uL Lymphocytes # (Auto) 2.0 1.0-4.0 10^3/uL Monocytes # (Auto) 0.5 0.0-1.0 10^3/uL Eosinophils # (Auto) 0.2 0.0-0.3 10^3/uL Basophils # (Auto) 0.1 0.0-0.1 10^3/uL Immature Granulocyte # (Auto) 0.0 0.0-0.1 10^3/uL Sodium Level 138 135-145 MMOL/L Potassium Level 5.1 H 3.6-5.0 MMOL/L Chloride Level 103 98-107 MMOL/L Carbon Dioxide Level 24 21-32 MMOL/L Anion Gap 11 5-14 MMOL/L Blood Urea Nitrogen 51 H 7-18 MG/DL Creatinine 1.33 H 0.60-1.30 MG/DL Estimat Glomerular Filtration Rate 45 BUN/Creatinine Ratio 38 Glucose Level 86 70-105 MG/DL Calcium Level 9.2 8.5-10.1 MG/DL Corrected Calcium 9.3 8.5-10.1 MG/DL Total Bilirubin 0.2 0.1-1.0 MG/DL Aspartate Amino Transf (AST/SGOT) 19 5-34 U/L Alanine Aminotransferase (ALT/SGPT) 18 0-55 U/L Alkaline Phosphatase 78 40-136 U/L Total Protein 8.3 H 6.4-8.2 GM/DL Albumin 3.9 3.2-4.5 GM/DL Amylase Level 90 25-125 U/L Lipase 138 H 8-78 U/L Urine Color YELLOW Urine Clarity CLEAR Urine pH 6.0 5-9 Urine Specific [place] 1.020 1.016-1.022 Urine Protein TRACE H NEGATIVE Urine Glucose (UA) NEGATIVE NEGATIVE Urine Ketones NEGATIVE NEGATIVE Urine Nitrite NEGATIVE NEGATIVE Urine Bilirubin NEGATIVE NEGATIVE Urine Urobilinogen 0.2 < = 1.0 MG/DL Urine Leukocyte Esterase NEGATIVE NEGATIVE Urine RBC (Auto) NEGATIVE NEGATIVE Urine RBC NONE /HPF Urine WBC 0-2 /HPF Urine Squamous Epithelial Cells 2-5 /HPF Urine Crystals NONE /LPF Urine Bacteria TRACE /HPF Urine Casts NONE /LPF Urine Mucus NEGATIVE /LPF Urine Culture Indicated NO Urine Opiates Screen NEGATIVE NEGATIVE Urine Oxycodone Screen NEGATIVE NEGATIVE Urine Methadone Screen NEGATIVE NEGATIVE Urine Propoxyphene Screen NEGATIVE NEGATIVE Urine Barbiturates Screen NEGATIVE NEGATIVE Ur Tricyclic Antidepressants Screen NEGATIVE NEGATIVE Urine Phencyclidine Screen NEGATIVE NEGATIVE Urine Amphetamines Screen POSITIVE H NEGATIVE Urine Methamphetamines Screen POSITIVE H NEGATIVE Urine Benzodiazepines Screen NEGATIVE NEGATIVE Urine Cocaine Screen NEGATIVE NEGATIVE Urine Cannabinoids Screen NEGATIVE NEGATIVE My Orders Orders - HOLA BRIGHT DO Ed Iv/Invasive Line Start (10/25/22 21:52) Monitor-Rhythm Ecg Trace Only (10/25/22 21:52) Amylase (10/25/22 21:52) Cbc With Automated Diff (10/25/22 21:52) Comprehensive Metabolic Panel (10/25/22 21:52) Drug Screen Stat (Urine) (10/25/22 21:52) Lipase (10/25/22 21:52) Ua Culture If Indicated (10/25/22 21:52) Ct Chest/Abdomen/Pelvis Wo (10/25/22 22:03) Ketorolac Injection (Toradol Injection) (10/25/22 22:45) Ed Iv/Invasive Line Start (10/25/22 22:44) Ns Iv 1000 Ml (Sodium Chloride 0.9%) (10/25/22 22:45) Medications Given in ED Current Medications Medications Dose Ordered Sig/Tad Route Start Time Stop Time Status Last Admin Dose Admin Ketorolac Tromethamine 30 mg ONCE ONCE IVP 10/25/22 22:45 10/25/22 22:46 DC 10/25/22 22:54 30 MG Vital Signs/I&O 10/25/22 21:52 Pulse 105 Resp 18 B/P (MAP) 115/100 (105) Pulse Ox 95 O2 Delivery Room Air Progress Progress Note : Progress Note PT GIVEN TORADOL WITH IMPROVEMENT IN PAIN PT RESTED QUIETLY FOR REMAINDER OF ER STAY PT'S BP ELEVATED, SHE ADMITS TO NOT TAKING HER MEDICATIONS FOR THE LAST SEVERAL DAYS--STATES SHE "JUST DIDN'T--I FORGOT" --BP IS CHRONICALLY ELEVATED SHE IS VERY NON-COMPLIANT.--FREQUENTLY > 200 / 100 RANGE. PT ADVISED TO NOT MISS DOSES OF HER MEDICATIONS ALSO DISCUSSED HER DRUG USE, A CONTRIBUTOR TO HER HIGH BLOOD PRESSURE AND SHE STATES HE IS AWARE OF THIS. SHE DENIES CHEST PAIN OR SHORTNESS OF BREATH OR PALPITATIONS OR HEADACHE OR PARESTHESIAS OR MOTOR DEFICITS OR DIZZINESS OR VISION CHANGES PT WITH A MULTITUDE OF VISITS--REVIEWED PRIOR RECORDS INCLUDING ER VISITS, ADMITS, H&P'S, CONSULTS, PROCEDURES AND DISCHARGE SUMMARIES. Diagnostic Imaging Comments CT CHEST/ ABDOMEN / PELVIS--PER RADIOLOGIST REPORT AT 0008 CT chest findings: Port-A-Cath is seen over the left chest. There are no enlarged mediastinal or hilar nodes. There are no enlarged axillary nodes or chest wall lesions. There is no pleural or pericardial fluid. Lung parenchymal windows show no focal lesions. There is no overt bony abnormality in the chest. There are diffuse degenerative changes. CT abdomen pelvis findings: The liver and spleen show no focal abnormality. The adrenals and pancreas appear unremarkable. There is cortical scarring of both kidneys with marked right renal atrophy. No acute abnormality is seen in the kidneys. There is no retroperitoneal mass or adenopathy. There are postoperative changes in the intra-abdominal wall. There is no overt bowel obstruction. There is no pelvic mass or fluid collection. IMPRESSION: CT chest shows no acute abnormality. CT abdomen pelvis shows no abdominal mass or abnormal fluid collection. There is cortical scarring of both kidneys with atrophy of the right kidney. There is no overt bowel obstruction. Reviewed: Reviewed by Me Departure Impression Primary Impression: Right flank pain Additional Impressions: Methamphetamine addiction HTN (hypertension) Chronic renal insufficiency Disposition: 01 HOME, SELF-CARE Condition: Stable Departure-Patient Inst. Decision time for Depature: 00:08 Referrals: [facility] (PCP) Primary Care Physician SILVIA DUNLAP APRN (Family) Primary Care Physician Patient Instructions: Flank Pain ED, Drug Abuse and Drug Addiction (DC), High Blood Pressure ED, Chronic Kidney Disease (DC) Add. Discharge Instructions: TAKE YOUR MEDICATIONS PRESCRIBED--DO NOT MISS DOSES OF YOUR MEDICATIONS NO DRUGS FOLLOW UP WITH YOUR DR ON FRIDAY IF NO BETTER All discharge instructions reviewed with patient and/or family. Voiced understanding. Scripts Cyclobenzaprine HCl (Cyclobenzaprine HCl) 10 Mg Tablet 10 MG PO Q8H PRN for SPASMS, #15 TAB 0 Refills Prov: HOLA BRIGHT DO 10/26/22 HOLA BRIGHT DO Oct 25, 2022 22:03
[2022-10-25 22:11] LABS: BASOPHILS # (AUTO) 0.1 10^3/uL (0.0-0.1); BASOPHILS % (AUTO) 1 % (0-10); EOSINOPHILS # (AUTO) 0.2 10^3/uL (0.0-0.3); EOSINOPHILS % (AUTO) 2 % (0-10); HEMATOCRIT 39 % (35-52); HEMOGLOBIN 12.2 g/dL (11.5-16.0); LYMPHOCYTES % (AUTO) 26 % (12-44); MEAN CORPUSCULAR HEMOGLOBIN 27 pg (25-34); MEAN CORPUSCULAR HGB CONC 31 g/dL (32-36); MEAN CORPUSCULAR VOLUME 85 fL (80-99); MEAN PLATELET VOLUME 9.7 fL (9.0-12.2); MONOCYTES # (AUTO) 0.5 10^3/uL (0.0-1.0); MONOCYTES % (AUTO) 7 % (0-12); NEUTROPHILS # (AUTO) 4.7 10^3/uL (1.8-7.8); NEUTROPHILS % (AUTO) 63 % (42-75); PLATELET COUNT 395 10^3/uL (130-400); WHITE BLOOD COUNT 7.5 10^3/uL (4.3-11.0)
[2022-10-25 22:30] LABS: ALBUMIN 3.9 GM/DL (3.2-4.5); POTASSIUM 5.1 MMOL/L (3.6-5.0)
[2022-10-25 22:31] LABS: CALCIUM 9.2 MG/DL (8.5-10.1)
[2022-10-25 22:32] LABS: TOTAL PROTEIN 8.3 GM/DL (6.4-8.2)
[2022-10-25 22:34] LABS: BILIRUBIN,TOTAL 0.2 MG/DL (0.1-1.0)
[2022-10-25 22:36] LABS: CREATININE SERUM 1.33 MG/DL (0.60-1.30)
[2022-10-25] MEDS ORDERED: NS IV 1000 ML 1,000 ML IV SCH (22:45)
[2022-10-25] MEDS ORDERED: KETOROLAC 30 MG/ML VIAL IVP ONE (22:45)
[2022-10-25 22:47] LABS: BILIRUBIN,URINE NEGATIVE (NEGATIVE); CLARITY,URINE CLEAR; COLOR,URINE YELLOW; GLUCOSE, URINE (UA) NEGATIVE (NEGATIVE); KETONES,URINE NEGATIVE (NEGATIVE); LEUKOCYTE ESTERASE ,URINE NEGATIVE (NEGATIVE); NITRITE,URINE NEGATIVE (NEGATIVE); PROTEIN,URINE TRACE (NEGATIVE)
[2022-10-25 22:53] LABS: BACTERIA,URINE TRACE /HPF; WBC,URINE 0-2 /HPF
[2022-10-25 22:57] LABS: AMPHETAMINE SCREEN, URINE POSITIVE (NEGATIVE); BARBITURATE SCREEN URINE NEGATIVE (NEGATIVE); BENZODIAZEPINES SCREEN URINE NEGATIVE (NEGATIVE); CANNABINOID SCREEN, URINE NEGATIVE (NEGATIVE); COCAINE SCREEN URINE NEGATIVE (NEGATIVE); METHADONE STAT NEGATIVE (NEGATIVE); OPIATE SCREEN URINE NEGATIVE (NEGATIVE); OXYCODONE STAT NEGATIVE (NEGATIVE); PROPOXYPHENE STAT NEGATIVE (NEGATIVE); TRICYCLIC ANTIDEPRESSANTS SCRE NEGATIVE (NEGATIVE)
--- NOTE | 2022-10-26 | Diagnostic Imaging Report ---
Indication: Chest and flank pain. TECHNIQUE: Multiple contiguous axial images were obtained through the chest, abdomen, and pelvis without the use of intravenous contrast. Auto Exposure Controls were utilized during the CT exam to meet ALARA standards for radiation dose reduction. Comparison made to 04/06/2022. CT chest findings: Port-A-Cath is seen over the left chest. There are no enlarged mediastinal or hilar nodes. There are no enlarged axillary nodes or chest wall lesions. There is no pleural or pericardial fluid. Lung parenchymal windows show no focal lesions. There is no overt bony abnormality in the chest. There are diffuse degenerative changes. CT abdomen pelvis findings: The liver and spleen show no focal abnormality. The adrenals and pancreas appear unremarkable. There is cortical scarring of both kidneys with marked right renal atrophy. No acute abnormality is seen in the kidneys. There is no retroperitoneal mass or adenopathy. There are postoperative changes in the intra-abdominal wall. There is no overt bowel obstruction. There is no pelvic mass or fluid collection. IMPRESSION: CT chest shows no acute abnormality. CT abdomen pelvis shows no abdominal mass or abnormal fluid collection. There is cortical scarring of both kidneys with atrophy of the right kidney. There is no overt bowel obstruction. Dictated by: Dictated on workstation # [id number]
[2022-10-26] MEDS ORDERED: CYCL10TA25 PO (00:09)
[2022-10-26 00:20] VITALS: BP 194/106
== END 2022-10-26 00:22 | disposition home or self-care (01) ==
LOC: EDUNIT# 21:43 → ER 21:44
DX: R10.84 Generalized abdominal pain (principal); I12.9 Hypertensive chronic kidney disease with stage 1 through stage 4 chronic kidney disease, or unspecified chronic kidney disease; E11.22 Type 2 diabetes mellitus with diabetic chronic kidney disease; N18.9 Chronic kidney disease, unspecified; J96.90 Respiratory failure, unspecified, unspecified whether with hypoxia or hypercapnia; T46.5X6A Underdosing of other antihypertensive drugs, initial encounter; F15.10 Other stimulant abuse, uncomplicated; F17.210 Nicotine dependence, cigarettes, uncomplicated; Z91.138 Patient's unintentional underdosing of medication regimen for other reason; Z87.442 Personal history of urinary calculi; Z98.61 Coronary angioplasty status; Z99.81 Dependence on supplemental oxygen
CPT/HCPCS: 36415; 71250; 74176; 80053; 80306; 81000; 82150; 83690; 85025; 93041

== ENCOUNTER 2022-12-08 10:09 | Emergency (ER) | payer MEDICAID ==
[~2022-12-08] VITALS: Ht 157 cm; Wt 70.0 kg
[2022-12-08 10:39] LABS: BASOPHILS % (AUTO) 1 % (0-10); EOSINOPHILS # (AUTO) 0.2 10^3/uL (0.0-0.3); EOSINOPHILS % (AUTO) 3 % (0-10); HEMATOCRIT 39 % (35-52); HEMOGLOBIN 12.1 g/dL (11.5-16.0); LYMPHOCYTES # (AUTO) 2.1 10^3/uL (1.0-4.0); LYMPHOCYTES % (AUTO) 31 % (12-44); MEAN CORPUSCULAR HEMOGLOBIN 26 pg (25-34); MEAN CORPUSCULAR HGB CONC 31 g/dL (32-36); MEAN CORPUSCULAR VOLUME 84 fL (80-99); MEAN PLATELET VOLUME 9.7 fL (9.0-12.2); MONOCYTES # (AUTO) 0.5 10^3/uL (0.0-1.0); MONOCYTES % (AUTO) 8 % (0-12); NEUTROPHILS # (AUTO) 3.9 10^3/uL (1.8-7.8); NEUTROPHILS % (AUTO) 58 % (42-75); PLATELET COUNT 470 10^3/uL (130-400); WHITE BLOOD COUNT 6.8 10^3/uL (4.3-11.0)
[2022-12-08] MEDS ORDERED: LORazepam INJ 2 MG/ML (ATIVAN) VIAL IVP ONE (10:45)
[2022-12-08] MEDS ORDERED: NS IV 500 ML 500 ML IV ONE (10:45)
[2022-12-08 10:50] LABS: ALBUMIN 3.5 GM/DL (3.2-4.5); POTASSIUM 3.7 MMOL/L (3.6-5.0)
[2022-12-08 10:51] LABS: CALCIUM 8.7 MG/DL (8.5-10.1)
[2022-12-08 10:52] LABS: TOTAL PROTEIN 7.9 GM/DL (6.4-8.2)
[2022-12-08 10:54] LABS: BILIRUBIN,TOTAL 0.2 MG/DL (0.1-1.0)
[2022-12-08 10:56] LABS: CREATININE SERUM 1.39 MG/DL (0.60-1.30)
[2022-12-08 10:59] LABS: MAGNESIUM 1.7 MG/DL (1.6-2.4)
--- NOTE | 2022-12-08 11:48 | ED Neurological Problem ---
General Chief Complaint: Neurological Problems Stated Complaint: POSSIBLE SEIZURE Nursing Triage Note: PATIENT TO ROOM 6 [facility]. EMS REPORTS SITTING IN CHAIR AT HOME JERKING ON ARRIVAL AND BLOOD SUGAR WAS 93. Source: patient, EMS Exam Limitations: clinical condition History of Present Illness Date Seen by Provider: Dec 08, 2022 Time Seen by Provider: 10:14 Initial Comments Patient here by EMS with report of seizure. EMS does report that she was sitting in a chair and was shaking. It did stop. Patient has history of these shaking type movements/seizures. She was apparently at a facility where they do outpatient drug treatment programs and alcohol treatment programs. There was no bystanders at the scene. Apparently the patient called 911 on her cell phone and sent distress signal per EMS. Vital signs in the field are okay although hypertensive. Patient did recognize me but is otherwise not answering questions well. She has known history of multiple similar presentations. Timing/Duration: 1/2 hour Severity: moderate Associated Symptoms: seizures Allergies and Home Medications Allergies Coded Allergies: nitrous oxide (Verified Allergy, Unknown, 06/08/07) Patient Home Medication List Home Medication List Reviewed: Yes Amlodipine Besylate (Amlodipine Besylate) 10 Mg Tablet, 10 MG PO DAILY Prescribed by: RAJAN VALDOVINOS on 07/01/22 1325 Carvedilol (Carvedilol) 12.5 Mg Tablet, 25 MG PO BID Prescribed by: RAJAN VALDOVINOS on 07/01/22 1325 Cyclobenzaprine HCl (Cyclobenzaprine HCl) 10 Mg Tablet, 10 MG PO Q8H PRN for SPASMS Prescribed by: HOLA BRIGHT on 10/26/22 0009 Famotidine (Acid Dance Costume Designer (FAMOTIDINE)) 20 Mg Tablet, 20 MG PO BID PRN for HEARTBURN, (Reported) Entered as Reported by: DAVID SANTANA on 11/29/19 1444 Hydralazine HCl (Hydralazine HCl) 100 Mg Tablet, 100 MG PO TID Prescribed by: RAJAN VALDOVINOS on 07/01/22 1325 Levetiracetam (Levetiracetam) 500 Mg Tablet, 1,000 MG PO BID Prescribed by: RAJAN VALDOVINOS on 07/01/22 1325 Review of Systems Review of Systems Constitutional: see HPI; No fever Psychiatric/Neurological: Tonic Clonic Seizures Unable to complete review of systems due to altered mental status. Past Lwxibka-Gyexaf-Hlogry Hx Patient Social History Tobacco Use?: No Substance use?: No Alcohol Use?: No Immunizations Up To Date Tetanus Booster (TDap): Less than 5yrs PED Vaccines UTD: No First/Initial COVID19 Vaccinat: NONE Second COVID19 Vaccination Deacon: NONE Third COVID19 Vaccination Date: NONE COVID19 Vaccine Denitrator: UNKNOWN Seasonal Allergies Seasonal Allergies: No Past Medical History Surgery/Hospitalization HX: L POWER PORT, HIGH CHOLESTEROL, HTN, RENAL STONES, GERD, PANCREATITIS, HEPATITIS, CH. 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, Menopausal Sexually Transmitted Disease: No HIV/AIDS: No Genitourinary: Yes Kidney Infection, Bladder Infection, Kidney Stones, Renal Failure, UTI-Chronic Gastrointestinal: Yes (HEPATITIS C) Abdominal Hernia, Gastroesophageal Reflux, Pancreatitis, Hepatitis Musculoskeletal: Yes (CHRONIC NECK AND BACK PAIN; POOR AMBULATION) Arthritis, Chronic Back Pain Endocrine: Yes (HGB AIC WAS 6.5 ON 12/23/18) Diabetes, Non-Insulin dep HEENT: Yes (POOR DENTITION) Loss of Vision: Denies Hearing Impairment: Denies Cancer: Yes Cervical Did You Recieve Any Treatments: Yes What Type of Treatment Did You: Surgical Intervention Psychosocial: Yes (POLYSUBSTANCE ABUSE) Anxiety, Bipolar, Depression Integumentary: No Blood Disorders: Yes (ANEMIA OF CHRONIC DISEASE) Adverse Reaction/Blood Tranf: No Family Medical History Reviewed Nursing Family Hx Abdominal aortic aneurysm 03 FATHER Alcoholism 03 FATHER 03 MOTHER 09 SISTER 09 SISTER Cancer 03 FATHER Cataract 03 FATHER 03 MOTHER Chest pain 03 MOTHER Family history: Diabetes mellitus 03 MOTHER Family history: Hypertension 03 MOTHER Family history: Thyroid disorder 03 MOTHER Headache 09 SISTER Heart disease 03 MOTHER History of drug abuse 03 FATHER 09 SISTER Myocardial infarction 03 MOTHER AAA, Heart Disease, Diabetes -SOCIAL HISTORY: -ETOH -OCCASIONAL USE -DRUGS-EXTENSIVE HISTORY OF IV METH USE--ALSO SMOKES IT, THC USE, RX DRUGS -SMOKES AT LEAST 1 PPD PAST SURGICAL HISTORY: -MULTIPLE CENTRAL LINES/PICC LINES -PORT LEFT CHEST PRESENT 07/29/20 -DIAGNOSTIC LAPAROSCOPY/LAPAROTOMY -MULTIPLE CYSTOSCOPIES WITH RIGHT URETERAL STENT PLACED AND LATER REMOVED -I&D OF ABSCESSES -MULTIPLE CARDIAC CATHS--NO INTERVENTION -HYSTERECTOMY WITH LATER BILATERAL SALPINGO-OOPHORECTOMY -UMBILICAL HERNIA REPAIR WITH MESH -BILATERAL MYRINGOTOMY TUBES -BLADDER SUSPENSION -MULTIPLE LEFT LEG SURGERIES DUE TO TRAUMA A CHILD -EGD -LEFT MASTOIDECTOMY NOTED ON CT 08/26/19--PT UNAWARE OF THIS PAST MEDICAL HISTORY: -HAS BEEN INTUBATED FOR RESPIRATORY FAILURE--LAST TIME WAS 08/26/19 -WEARS O2 AT 4L/NC CONTINUOUSLY -NON-ISCHEMIC CARDIOMYOPATHY -HAS HAD EXTERNAL DEFIBRILLATOR IN PAST -CHRONIC CHEST PAIN COMPLAINTS, WITH ELEVATED TROPONIN MULTIPLE TIMES AND DX WITH NSTEMI 02/2018--LAST CARDIAC CATH 02/2018--SHOWED MILD CAD/NO INTERVENTION LAST LEXISCAN STRESS TEST WAS NORMAL 07/12/19. LAST ECHOCARDIOGRAM 08/20/19--NON-ISCHEMIC CARDIOMYOPATHY WITH EF 55-65% -MITRAL REGURGITATION -TRICUSPID VALVE VEGETATIONS 2013 -CHF -MULTIPLE CARDIAC CATHS-NO INTERVENTION -POOR VENOUS ACCESS -TRAUMATIC BRAIN INJURY CHILD; -CVA WITH LEFT SIDED WEAKNESS -POOR BALANCE--IS SUPPOSED TO USE A WALKER -MULTIPLE EPISODES OF "ALTERED MENTAL STATUS" -MULTIPLE HEAD INJURIES DUE TO REPORTED DOMESTIC ABUSE -CHRONIC RENAL FAILURE--NO DIALYSIS -CHRONIC ABDOMINAL PAIN COMPLAINTS; -GASTRITIS -HEPATITIS C--NO TREATMENT -CHRONIC NECK AND BACK PAIN; POOR AMBULATION -ANEMIA OF CHRONIC DISEASE -LONG HISTORY OF NON-COMPLIANCE IN ALL ASPECTS OF CARE Physical Exam Vital Signs Vital Signs - First Documented 12/08/22 10:11 Temp 35.6 Pulse 98 Resp 18 B/P (MAP) 176/103 (127) Pulse Ox 95 O2 Delivery Room Air Capillary Refill : Less Than 3 Seconds Height, Weight, BMI Height: 5'3.00" Weight: 155lbs. 8.0oz. 70.678922up; 28.00 BMI Method:Stated General Appearance: mild distress HEENT: PERRL/EOMI, other (Mucous membranes dry) Neck: full range of motion, supple Respiratory: lungs clear, normal breath sounds Cardiovascular: no murmur, tachycardia Gastrointestinal: non tender, soft Back: other (Chronically tender across to her back and this does cause spasms when touched) Extremities: normal inspection, no pedal edema Neurologic/Psychiatric: other (Patient chronically is very difficult to understand due to speech pattern. She does recognize me and did say my name. She is moving all extremities and there is no significant facial droop or weakness noted otherwise. She does have tremors to all extremities) Skin: warm/dry Procedures/Interventions Date of ETT Placement: Sep 17, 2019 Time of ETT Placement: 1745 Progress/Results/Core Measures Results/Orders Lab Results Laboratory Tests Test 12/08/22 10:20 Range/Units White Blood Count 6.8 4.3-11.0 10^3/uL Red Blood Count 4.65 3.80-5.11 10^6/uL Hemoglobin 12.1 11.5-16.0 g/dL Hematocrit 39 35-52 % Mean Corpuscular Volume 84 80-99 fL Mean Corpuscular Hemoglobin 26 25-34 pg Mean Corpuscular Hemoglobin Concent 31 L 32-36 g/dL Red Cell Distribution Width 15.0 H 10.0-14.5 % Platelet Count 470 H 130-400 10^3/uL Mean Platelet Volume 9.7 9.0-12.2 fL Immature Granulocyte % (Auto) 0 % Neutrophils (%) (Auto) 58 42-75 % Lymphocytes (%) (Auto) 31 12-44 % Monocytes (%) (Auto) 8 0-12 % Eosinophils (%) (Auto) 3 0-10 % Basophils (%) (Auto) 1 0-10 % Neutrophils # (Auto) 3.9 1.8-7.8 10^3/uL Lymphocytes # (Auto) 2.1 1.0-4.0 10^3/uL Monocytes # (Auto) 0.5 0.0-1.0 10^3/uL Eosinophils # (Auto) 0.2 0.0-0.3 10^3/uL Basophils # (Auto) 0.0 0.0-0.1 10^3/uL Immature Granulocyte # (Auto) 0.0 0.0-0.1 10^3/uL Sodium Level 138 135-145 MMOL/L Potassium Level 3.7 3.6-5.0 MMOL/L Chloride Level 102 98-107 MMOL/L Carbon Dioxide Level 23 21-32 MMOL/L Anion Gap 13 5-14 MMOL/L Blood Urea Nitrogen 22 H 7-18 MG/DL Creatinine 1.39 H 0.60-1.30 MG/DL Estimat Glomerular Filtration Rate 43 BUN/Creatinine Ratio 16 Glucose Level 102 70-105 MG/DL Calcium Level 8.7 8.5-10.1 MG/DL Corrected Calcium 9.1 8.5-10.1 MG/DL Magnesium Level 1.7 1.6-2.4 MG/DL Total Bilirubin 0.2 0.1-1.0 MG/DL Aspartate Amino Transf (AST/SGOT) 15 5-34 U/L Alanine Aminotransferase (ALT/SGPT) 16 0-55 U/L Alkaline Phosphatase 92 40-136 U/L Total Protein 7.9 6.4-8.2 GM/DL Albumin 3.5 3.2-4.5 GM/DL My Orders Orders - QUIN JONES MD Cbc With Automated Diff (12/08/22 10:33) Comprehensive Metabolic Panel (12/08/22 10:33) Magnesium (12/08/22 10:33) Ed Iv/Invasive Line Start (12/08/22 10:33) Ns Iv 500 Ml (Sodium Chloride 0.9%) (12/08/22 10:45) Lorazepam Injection (Ativan Injection) (12/08/22 10:45) Levetiracetam 1000 Mg/Ns 100ml (Keppra I (12/08/22 12:00) Medications Given in ED Current Medications Medications Dose Ordered Sig/Tad Route Start Time Stop Time Status Last Admin Dose Admin Lorazepam 1 mg ONCE ONCE IVP 12/08/22 10:45 12/08/22 10:46 DC 12/08/22 10:44 1 MG Sodium Chloride 500 ml @ 0 mls/hr Q0M ONCE IV 12/08/22 10:45 12/08/22 10:46 DC 12/08/22 10:47 500 MLS/HR Vital Signs/I&O 12/08/22 10:11 Temp 35.6 Pulse 98 Resp 18 B/P (MAP) 176/103 (127) Pulse Ox 95 O2 Delivery Room Air Blood Pressure Mean: 127 Progress Progress Note : Progress Note Seen and evaluated. IV via port access, normal saline 500 mL bolus, labs including CBC, CMP and magnesium ordered. Monitor patient. Differential includes seizure disorder, drug use disorder, electrolyte abnormality, dehydration. 1045: Patient was having shaking consistent with a seizure. This did not change during sternal rub. Ativan 1 mg IV ordered. Monitor patient. 1145: She has not had return of seizures. She has maintained her oxygen saturations throughout. CBC does show normal white count and normal hemoglobin with slightly elevated platelets. Chemistry is grossly normal with serum creatinine slightly elevated at 1.39. Magnesium normal. Monitor patient. 1058: I did talk with the patient. She admits that she has not taken her Keppra today. We will go ahead and do an IV dose of that now and likely be able to discharge her home afterwards. She was okay with that. Monitor patient. 1330: Keppra is complete. Patient has walked to the bathroom and she is back to normal mentation and doing well. She would like to go home and has called her ride. Discharged home with return precautions. Patient verbalized understanding of instructions and agreement with plan. Departure Impression Primary Impression: Seizure disorder Disposition: HOME, SELF-CARE Condition: Improved Departure-Patient Inst. Decision time for Depature: 13:30 Referrals: [facility] (PCP) Primary Care Physician SILVIA DUNLAP APRN (Family) Primary Care Physician Patient Instructions: Seizures, Adult (DC) Add. Discharge Instructions: All discharge instructions reviewed with patient and/or family. Voiced understanding. Continue home medications as previously prescribed including taking your seizure medicines. Follow-up with your doctor this week for recheck and further evalua tion. Return for weakness, seizures, breathing problems, fever, vomiting or other concerns as needed. QUIN JONES MD Dec 08, 2022 11:48
[2022-12-08] MEDS ORDERED: levETIRAcetam 1000 mg/NS 100ml 100 ML IV STA (12:00)
[2022-12-08 13:33] VITALS: BP 129/92
== END 2022-12-08 13:45 | disposition home or self-care (01) ==
LOC: EDUNIT# 10:09 → ER 10:10
DX: G40.909 Epilepsy, unspecified, not intractable, without status epilepticus (principal); D75.839 Thrombocytosis, unspecified; R79.89 Other specified abnormal findings of blood chemistry; F17.290 Nicotine dependence, other tobacco product, uncomplicated; J44.9 Chronic obstructive pulmonary disease, unspecified; Z99.81 Dependence on supplemental oxygen
CPT/HCPCS: 36415; 80053; 83735; 85025; 99283

== ENCOUNTER 2023-03-30 11:27 | Emergency (ER) | payer MEDICAID ==
[~2023-03-30 11:27] MED LIST changes: -LOSA100T57 PO; +LOSA100T58 PO
--- NOTE | 2023-03-30 11:49 | ED General ---
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 States that she went to sleep and woke up with this pain 2 weeks ago. She also reports abscesses on bilateral upper thighs which she thinks has been there for the last 3 to 5 days. Reports history of MRSA with sepsis. She reports subjective fevers. Patient was seen at [facility] and sent here because they believed her shoulder looked dislocated on x-ray. Allergies and Home Medications Allergies Coded Allergies: nitrous oxide (Verified Allergy, Unknown, 06/08/07) Patient Home Medication List Home Medication List Reviewed: Yes Amlodipine Besylate (Amlodipine Besylate) 10 Mg Tablet, 10 MG PO DAILY Prescribed by: RAJAN VALDOVINOS on 07/01/22 132 Carvedilol (Carvedilol) 12.5 Mg Tablet, 25 MG PO BID Prescribed by: RAJAN VALDOVINOS on 07/01/22 1325 Cyclobenzaprine HCl (Cyclobenzaprine HCl) 10 Mg Tablet, 10 MG PO Q8H PRN for SPA SMS Prescribed by: HOLA BRIGHT on 10/26/22 0009 Famotidine (Acid Social Work Instructor (FAMOTIDINE)) 20 Mg Tablet, 20 MG PO BID PRN for HEARTBURN, (Reported) Entered as Reported by: DAVID SANTANA on 11/29/19 1444 Hydralazine HCl (Hydralazine HCl) 100 Mg Tablet, 100 MG PO TID Prescribed by: RAJAN VALDOVINOS on 07/01/22 1325 Levetiracetam (Levetiracetam) 500 Mg Tablet, 1,000 MG PO BID Prescribed by: RAJAN VALDOVINOS on 07/01/22 1325 Sulfamethoxazole/Trimethoprim (Bactrim Ds Tablet) 1 Each Tablet, 1 EACH PO BID Prescribed by: Sophia Rajput on 03/30/23 1330 Review of Systems Review of Systems Constitutional: see HPI Past Dsoltws-Hllgtt-Qtxyhl Hx Immunizations Up To Date Tetanus Booster (TDap): Less than 5yrs PED Vaccines UTD: No First/Initial COVID19 Vaccinat: NONE Second COVID19 Vaccination Deacon: NONE Third COVID19 Vaccination Date: NONE Seasonal Allergies Seasonal Allergies: No Past Medical History Surgery/Hospitalization HX: L POWER PORT, HIGH CHOLESTEROL, HTN, RENAL STONES, GERD, PANCREATITIS, HEPATITIS, CH. 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 Sexually Transmitted Disease: No HIV/AIDS: No Genitourinary: Yes Kidney Infection, Bladder Infection, Kidney Stones, Renal Failure, UTI-Chronic Gastrointestinal: Yes (HEPATITIS C) Abdominal Hernia, Gastroesophageal Reflux, Pancreatitis, Hepatitis Musculoskeletal: Yes (CHRONIC NECK AND BACK PAIN; POOR AMBULATION) Arthritis, Chronic Back Pain Endocrine: Yes (HGB AIC WAS 6.5 ON 12/23/18) Diabetes, Non-Insulin dep HEENT: Yes (POOR DENTITION) Loss of Vision: Denies Hearing Impairment: Denies Cancer: Yes Cervical Did You Recieve Any Treatments: Yes What Type of Treatment Did You: Surgical Intervention Psychosocial: Yes (POLYSUBSTANCE ABUSE) Anxiety, Bipolar, Depression Integumentary: No Blood Disorders: Yes (ANEMIA OF CHRONIC DISEASE) Adverse Reaction/Blood Tranf: No Family Medical History Abdominal aortic aneurysm 03 FATHER Alcoholism 03 FATHER 03 MOTHER 09 SISTER 09 SISTER Cancer 03 FATHER Cataract 03 FATHER 03 MOTHER Chest pain 03 MOTHER Family history: Diabetes mellitus 03 MOTHER Family history: Hypertension 03 MOTHER Family history: Thyroid disorder 03 MOTHER Headache 09 SISTER Heart disease 03 MOTHER History of drug abuse 03 FATHER 09 SISTER Myocardial infarction 03 MOTHER No Family History of: Isael's disease Aphasia Cancer of colon Congenital heart disease Congestive heart failure Cystic fibrosis Dementia Dysphagia Family history: Allergy Family history: Alzheimer's disease Family history: Arthritis Family history: Asthma Family history: Breast disease Family history: Cardiovascular disease Family history: Coronary thrombosis Family history: Gastrointestinal disease Family history: Glaucoma Family history: Osteoporosis Hearing loss Hereditary disease History of - anemia History of - disorder History of - respiratory disease Human immunodeficiency virus (HIV) seropositivity Hypercholesterolemia Infertile Kidney disease Malignant neoplasm of lung Parkinson's disease Prostate cancer Psychotic disorder Seizure disorder Stroke Tuberculosis Visual impairment AAA, Heart Disease, Diabetes -SOCIAL HISTORY: -ETOH -OCCASIONAL USE -DRUGS-EXTENSIVE HISTORY OF IV METH USE--ALSO SMOKES IT, THC USE, RX DRUGS -SMOKES AT LEAST 1 PPD PAST SURGICAL HISTORY: -MULTIPLE CENTRAL LINES/PICC LINES -PORT LEFT CHEST PRESENT 07/29/20 -DIAGNOSTIC LAPAROSCOPY/LAPAROTOMY -MULTIPLE CYSTOSCOPIES WITH RIGHT URETERAL STENT PLACED AND LATER REMOVED -I&D OF ABSCESSES -MULTIPLE CARDIAC CATHS--NO INTERVENTION -HYSTERECTOMY WITH LATER BILATERAL SALPINGO-OOPHORECTOMY -UMBILICAL HERNIA REPAIR WITH MESH -BILATERAL MYRINGOTOMY TUBES -BLADDER SUSPENSION -MULTIPLE LEFT LEG SURGERIES DUE TO TRAUMA A CHILD -EGD -LEFT MASTOIDECTOMY NOTED ON CT 08/26/19--PT UNAWARE OF THIS PAST MEDICAL HISTORY: -HAS BEEN INTUBATED FOR RESPIRATORY FAILURE--LAST TIME WAS 08/26/19 -WEARS O2 AT 4L/NC CONTINUOUSLY -NON-ISCHEMIC CARDIOMYOPATHY -HAS HAD EXTERNAL DEFIBRILLATOR IN PAST -CHRONIC CHEST PAIN COMPLAINTS, WITH ELEVATED TROPONIN MULTIPLE TIMES AND DX WITH NSTEMI 02/2018--LAST CARDIAC CATH 02/2018--SHOWED MILD CAD/NO INTERVENTION LAST LEXISCAN STRESS TEST WAS NORMAL 07/12/19. LAST ECHOCARDIOGRAM 08/20/19--NON-ISCHEMIC CARDIOMYOPATHY WITH EF 55-65% -MITRAL REGURGITATION -TRICUSPID VALVE VEGETATIONS 2013 -CHF -MULTIPLE CARDIAC CATHS-NO INTERVENTION -POOR VENOUS ACCESS -TRAUMATIC BRAIN INJURY CHILD; -CVA WITH LEFT SIDED WEAKNESS -POOR BALANCE--IS SUPPOSED TO USE A WALKER -MULTIPLE EPISODES OF "ALTERED MENTAL STATUS" -MULTIPLE HEAD INJURIES DUE TO REPORTED DOMESTIC ABUSE -CHRONIC RENAL FAILURE--NO DIALYSIS -CHRONIC ABDOMINAL PAIN COMPLAINTS; -GASTRITIS -HEPATITIS C--NO TREATMENT -CHRONIC NECK AND BACK PAIN; POOR AMBULATION -ANEMIA OF CHRONIC DISEASE -LONG HISTORY OF NON-COMPLIANCE IN ALL ASPECTS OF CARE Physical Exam Vital Signs Vital Signs - First Documented 03/30/23 11:50 Pulse 91 Resp 18 B/P (MAP) 151/100 (117) Pulse Ox 97 O2 Delivery Room Air Capillary Refill : Height, Weight, BMI Height: 5'3.00" Weight: 155lbs. 8.0oz. 70.747554ne; 28.00 BMI Method:Stated General Appearance: No Apparent Distress, WD/WN Neck: Normal Inspection, Supple Respiratory: Lungs Clear, Normal Breath Sounds, No Accessory Muscle Use, No Respiratory Distress Cardiovascular: Regular Rate, Rhythm Extremity: Normal Capillary Refill, Other (Left shoulder severely painful to touch, limited range of motion, pulses intact distally, cap refill less than 2 seconds, sensation intact distally) Neurologic/Psychiatric: Alert Skin: Warm/Dry, Erythema (Right upper thigh and left mid thigh), Other (Large area of induration in right upper, large area of fluctuation noted, small area of induration to left mid thigh, no area of fluctuation) Procedures/Interventions I&D : Site: Right upper thigh Blade Size: 11 Packing/Drain: Plain Packing 1/2 Progress Field block with 1% lidocaine without epinephrine. Area was incised with 11 blade. Expression of large amount of purulent material. Wound culture obtained. Packed with half-inch gauze. Gauze dressing applied over area. Date of ETT Placement: Sep 17, 2019 Time of ETT Placement: 1744 Progress/Results/Core Measures Suspected Sepsis SIRS Temperature: Pulse: Respiratory Rate: Blood Pressure / Mean: Results/Orders My Orders Orders - SOPHIA RAJPUT APRN Shoulder, Left, 3 Views (03/30/23 11:42) Lidocaine 1% Inj 20 Ml (Xylocaine 1% Inj (03/30/23 12:15) Morphine Injection (Morphine Injection (03/30/23 12:24) Sulfamethoxazole/Trimet Ds Tab (Bactrim (03/30/23 13:30) Wound Culture (03/30/23 13:26) Medications Given in ED Current Medications Medications Dose Ordered Sig/Tad Route Start Time Stop Time Status Last Admin Dose Admin Lidocaine HCl 20 ml ONCE ONCE INJ 03/30/23 12:15 03/30/23 12:16 DC 03/30/23 13:00 20 ML Trimethoprim/ Sulfamethoxazole 1 ea ONCE ONCE PO 03/30/23 13:30 03/30/23 13:31 DC 03/30/23 13:32 1 EA Vital Signs/I&O 03/30/23 03/30/23 11:50 13:46 Pulse 91 90 Resp 18 B/P (MAP) 151/100 (117) 129/92 Pulse Ox 97 97 O2 Delivery Room Air Room Air Capillary Refill : Progress Note : Progress Note Patient seen and evaluated, resting comfortably in bed, no acute distress. Severe pain with palpation of left shoulder and abscesses. Will obtain x-ray of left shoulder. Will need to drain abscess on right leg. X-ray reviewed. Negative for acute osseous abnormality. Results discussed with patient. Abscess to right upper thigh drained, see procedure note. Will discharge with antibiotic. Discharge instructions and return precautions provided. Diagnostic Imaging Diagonstic Imaging: Xray Plain Films/CT/US/NM/MRI: other (shoulder) Comments [facility], [place] NAME: KEREN MAX [facility] REC#: [id number] PT STATUS: REG ER : 1960 PHYSICIAN: SOPHIA RAJPUT APRN ADMIT DATE: 03/30/23/ER Signed Date of Exam:03/30/23 SHOULDER, LEFT, 3 VIEWS EXAMINATION: Left shoulder radiograph EXAM DATE: 03/30/2023 11:59 AM COMPARISON: None available. HISTORY: shoulder pain TECHNIQUE: 3 views FINDINGS: There is no acute fracture, dislocation, or destructive osseous process. The joint spaces are normal. The soft tissues are normal. IMPRESSION: 1. No acute osseous abnormality. Dictated by: Dictated on workstation # [id number] Dict: 03/30/23 1201 Trans: 03/30/23 1217 [facility] [id number] Interpreted by: JACQUELINE SANFORD DO Electronically signed by: JACQUELINE SANFORD DO 03/30/23 1217 Departure Impression Primary Impression: Abscess Additional Impression: Shoulder pain Qualified Codes: M25.512 - Pain in left shoulder Disposition: 01 HOME, SELF-CARE Condition: Stable Departure-Patient Inst. Decision time for Depature: 13:28 Referrals: [facility] [place] (PCP) Primary Care Physician SILVIA DUNLAP APRN (Family) Primary Care Physician CARLOS PEREZ MD Patient Instructions: Abscess Incision and Drainage, Shoulder Pain (DC) Add. Discharge Instructions: You need to return in 2 days for reevaluation of the wound and to remove the packing. Complete full course of antibiotic as directed, do not stop taking even if your symptoms improve. You may take 800 mg of ibuprofen every 8 hours with food as needed for pain. You may also take 1000 mg of Tylenol every 8 hours as needed for pain. Follow-up with orthopedics if your shoulder pain continues. Return for fever, or any other new, concerning, or worsening symptoms. Scripts Sulfamethoxazole/Trimethoprim (Bactrim Ds Tablet) 1 Each Tablet 1 EACH PO BID for 7 Days, #14 TAB 0 Refills Prov: SOPHIA RAJPUT APRN 03/30/23 SOPHIA RAJPUT APRN Mar 30, 2023 11:49
--- NOTE | 2023-03-30 12:02 | Diagnostic Imaging Report ---
EXAMINATION: Left shoulder radiograph EXAM DATE: 03/30/2023 11:59 AM COMPARISON: None available. HISTORY: shoulder pain TECHNIQUE: 3 views FINDINGS: There is no acute fracture, dislocation, or destructive osseous process. The joint spaces are normal. The soft tissues are normal. IMPRESSION: 1. No acute osseous abnormality. Dictated by: Dictated on workstation # [id number]
[2023-03-30] MEDS ORDERED: LIDOCAINE 1% INJ 20 ML VIAL INJ ONE (12:15)
[2023-03-30] MEDS ORDERED: morphine INJ 10 MG/ML 1ML (SYR OR VIAL) IM STA (12:24)
[2023-03-30] MEDS ORDERED: TRIM/SULFAMETH 160/800 (SEPTRA DS) TAB PO ONE (13:30)
[2023-03-30] MEDS ORDERED: SULF1TAB38 PO (13:30)
[2023-03-30 13:46] VITALS: BP 129/92
== END 2023-03-30 13:46 | disposition home or self-care (01) ==
LOC: EDUNIT# 11:27 → ER 11:30
DX: M25.512 Pain in left shoulder (principal); L02.416 Cutaneous abscess of left lower limb; L02.415 Cutaneous abscess of right lower limb; F17.210 Nicotine dependence, cigarettes, uncomplicated; Z28.310 Unvaccinated for COVID-19
CPT/HCPCS: 10061; 73030; 87070; 87077; 87205

== ENCOUNTER 2023-03-31 11:06 | Inpatient (IN) | payer MEDICAID ==
[~2023-03-31] VITALS: Ht 157.4 cm; Wt 76.5 kg
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
[2023-03-31] MEDS ORDERED: DROPERIDOL 5 MG/2 ML (INAPSINE) ED ONLY! IV ONE (11:30)
[2023-03-31 11:31] LABS: BASOPHILS % (AUTO) 0 % (0-10); EOSINOPHILS # (AUTO) 0.1 10^3/uL (0.0-0.3); EOSINOPHILS % (AUTO) 1 % (0-10); HEMATOCRIT 32 % (35-52); LYMPHOCYTES # (AUTO) 0.8 10^3/uL (1.0-4.0); LYMPHOCYTES % (AUTO) 7 % (12-44); MEAN CORPUSCULAR HEMOGLOBIN 26 pg (25-34); MEAN CORPUSCULAR HGB CONC 32 g/dL (32-36); MEAN CORPUSCULAR VOLUME 81 fL (80-99); MEAN PLATELET VOLUME 9.8 fL (9.0-12.2); MONOCYTES # (AUTO) 0.5 10^3/uL (0.0-1.0); MONOCYTES % (AUTO) 4 % (0-12); NEUTROPHILS # (AUTO) 9.2 10^3/uL (1.8-7.8); NEUTROPHILS % (AUTO) 87 % (42-75); PLATELET COUNT 423 10^3/uL (130-400); WHITE BLOOD COUNT 10.5 10^3/uL (4.3-11.0)
--- NOTE | 2023-03-31 11:40 | Diagnostic Imaging Report ---
INDICATION: Chest pain. TECHNIQUE/COMPARISON: An AP view of the chest was obtained with comparison made to the study of 05/18/2022. FINDINGS: There is dense airspace disease in the periphery of the lower half of the right lung. There is relative volume loss in the right lung as well. The left lung is clear and well expanded. There is no significant pleural fluid. The left anterior chest wall catheter remains in place. There is an old right clavicle fracture. IMPRESSION: Airspace disease in the periphery of the right lung could represent an area of infiltrate, infarct, or hemorrhage and clinical correlation is recommended. A short-term radiographic followup of the chest or CT imaging should be considered for further assessment. Given the peripheral nature of this major finding, a CT of the chest could be useful to exclude pulmonary embolism. Dictated by: Dictated on workstation # [id number]
[2023-03-31] MEDS ORDERED: CEFEPIME INJECTION 1,000 MG in NS (IVPB) 50 ML IV ONE (11:45)
[2023-03-31] MEDS ORDERED: ACETAMINOPHEN 500 MG TAB (TYLENOL) PO PRN (11:45)
[2023-03-31 11:47] LABS: INR 1.1 (0.8-1.4)
[2023-03-31 11:49] LABS: ALBUMIN 3.3 GM/DL (3.2-4.5); CALCIUM 8.3 MG/DL (8.5-10.1); POTASSIUM 5.6 MMOL/L (3.6-5.0); TOTAL PROTEIN 6.9 GM/DL (6.4-8.2)
[2023-03-31] MEDS: NS IV 1000 ML 1,000 ML IV SCH ×4 (11:51→23:07)
[2023-03-31 12:15] LABS: BAND NEUTROPHILS 2 %; EOSINOPHILS % (MANUAL) 1 %; LYMPHOCYTES % (MANUAL) 7 %; MONOCYTES % (MANUAL) 1 %; NEUTROPHILS % (MANUAL) 89 %
[2023-03-31 12:16] LABS: ANISOCYTOSIS SLIGHT; MICROCYTOSIS SLIGHT; TARGET CELLS SLIGHT
[2023-03-31 12:18] LABS: HYPOCHROMASIA SLIGHT
[2023-03-31 12:30] LABS: BILIRUBIN,TOTAL 0.2 MG/DL (0.1-1.0)
[2023-03-31 12:32] LABS: CREATININE SERUM 2.5 MG/DL (0.60-1.30)
[2023-03-31 12:34] LABS: MAGNESIUM 1.7 MG/DL (1.6-2.4)
[2023-03-31] MEDS ORDERED: HEParin DRIP 25000 UNIT/500ML 500 ML IV SCH ×2 (13:00→14:45)
[2023-03-31] MEDS ORDERED: HEParin 1000 UNIT/ML (10ML VIAL) FOR BOLUS IV SCH ×2 (13:00→14:45)
[2023-03-31 13:19] LABS: AMPHETAMINE SCREEN, URINE POSITIVE (NEGATIVE); BARBITURATE SCREEN URINE NEGATIVE (NEGATIVE); BENZODIAZEPINES SCREEN URINE NEGATIVE (NEGATIVE); CANNABINOID SCREEN, URINE NEGATIVE (NEGATIVE); COCAINE SCREEN URINE NEGATIVE (NEGATIVE); METHADONE STAT NEGATIVE (NEGATIVE); OPIATE SCREEN URINE POSITIVE (NEGATIVE); OXYCODONE STAT NEGATIVE (NEGATIVE); PROPOXYPHENE STAT NEGATIVE (NEGATIVE); TRICYCLIC ANTIDEPRESSANTS SCRE NEGATIVE (NEGATIVE)
[2023-03-31] MEDS ORDERED: VANCOMYCIN INJECTION 0.1 MG in NS (IVPB) 250 ML IV SCH (14:45)
[2023-03-31] MEDS ORDERED: VANCOMYCIN 1500MG/300ML PREMIX 300 ML IV SCH (16:00)
[2023-03-31 16:21] LABS: HEMATOCRIT 31 % (35-52); HEMOGLOBIN 9.5 g/dL (11.5-16.0); MEAN CORPUSCULAR HEMOGLOBIN 26 pg (25-34); MEAN CORPUSCULAR HGB CONC 31 g/dL (32-36); MEAN CORPUSCULAR VOLUME 82 fL (80-99); PLATELET COUNT 348 10^3/uL (130-400); WHITE BLOOD COUNT 15.4 10^3/uL (4.3-11.0)
[2023-03-31 16:22] LABS: MEAN PLATELET VOLUME 10.2 fL (9.0-12.2)
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
[2023-03-31] MEDS ORDERED: LACTATED RINGERS 1,000 ML IV SCH (18:45)
[2023-03-31] MEDS: HYPOCHLOROUS ACID/NaCl (VASHE) 250 ML IR PRN (19:40)
[2023-03-31] MEDS ORDERED: CEFEPIME INJECTION 1,000 MG in NS (IVPB) 50 ML IV SCH (23:00)
[2023-03-31] MEDS ORDERED: DexMEDEtomidine 250 ML DRIP 250 ML IV ONE (23:02)
--- NOTE | 2023-03-31 23:08 | Tele-ICU Progress Note ---
Progress Note called by bedside RN Patient awoke and wants a drink of water and is acutely aggitated. RN iis familiar with the patient and states this is a common scenario that she beomes acutely aggitated when she wants something. She is trying to get out of bed and swing at the nursing staff Not hypoxemic PLAN: will try precedex drip for some sedation which willl not suppress respiration. Focused Exam Lactate Level 03/31/23 11:20: Lactic Acid Level 1.04 Height, Weight, BMI Height: 5'3.00" Weight: 155lbs. 8.0oz. 70.803345sb; 28.86 BMI Method:Stated ALTHEA ALDANA MD Mar 31, 2023 23:08
[2023-03-31] MEDS ORDERED: DexMEDEtomidine 250 ML DRIP 250 ML IV SCH (23:15)
[2023-04-01] MEDS: NS IV 1000 ML 1,000 ML IV SCH (00:56)
[2023-04-01] MEDS ORDERED: NS IV 500 ML 500 ML IV PRN (03:00)
[2023-04-01 04:03] LABS: BASOPHILS % (AUTO) 0 % (0-10); EOSINOPHILS # (AUTO) 0.2 10^3/uL (0.0-0.3); EOSINOPHILS % (AUTO) 1 % (0-10); HEMATOCRIT 30 % (35-52); HEMOGLOBIN 9.2 g/dL (11.5-16.0); LYMPHOCYTES # (AUTO) 1.3 10^3/uL (1.0-4.0); LYMPHOCYTES % (AUTO) 11 % (12-44); MEAN CORPUSCULAR HEMOGLOBIN 26 pg (25-34); MEAN CORPUSCULAR HGB CONC 31 g/dL (32-36); MEAN CORPUSCULAR VOLUME 83 fL (80-99); MEAN PLATELET VOLUME 9.9 fL (9.0-12.2); MONOCYTES # (AUTO) 0.5 10^3/uL (0.0-1.0); MONOCYTES % (AUTO) 4 % (0-12); NEUTROPHILS # (AUTO) 9.7 10^3/uL (1.8-7.8); NEUTROPHILS % (AUTO) 83 % (42-75); PLATELET COUNT 346 10^3/uL (130-400); WHITE BLOOD COUNT 11.7 10^3/uL (4.3-11.0)
[2023-04-01 04:14] LABS: ALBUMIN 2.7 GM/DL (3.2-4.5); POTASSIUM 4.7 MMOL/L (3.6-5.0)
[2023-04-01 04:16] LABS: CALCIUM 7.8 MG/DL (8.5-10.1)
[2023-04-01 04:17] LABS: TOTAL PROTEIN 5.9 GM/DL (6.4-8.2)
[2023-04-01 04:18] LABS: BILIRUBIN,TOTAL 0.2 MG/DL (0.1-1.0)
[2023-04-01 04:20] LABS: CREATININE SERUM 1.64 MG/DL (0.60-1.30)
[2023-04-01] MEDS: MAGNESIUM 1 GM/100 ML IVPB 100 ML IV SCH ×2 (05:11→06:14)
[2023-04-01] MEDS ORDERED: POTASSIUM CL 10MEQ/50ML IVPB 50 ML IV SCH (06:00)
[2023-04-01] MEDS ORDERED: MAGNESIUM 1 GM/100 ML IVPB 100 ML IV SCH (06:00)
[2023-04-01] MEDS ORDERED: KCL 20 MEQ TAB (K-DUR) PO SCH (06:00)
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
[2023-04-01] MEDS: CEFEPIME INJECTION 1,000 MG in NS (IVPB) 50 ML IV SCH ×2 (09:38→18:06)
--- NOTE | 2023-04-01 10:13 | Wound Care Assessment ---
Wound Care Assessment Date Seen by Provider: Apr 01, 2023 Time Seen by Provider: 08:30 Chief Complaint Abscess R. thigh HPI This 62 year old patient presented to the hospital with chest pain and respiratory failure. She is a poor historian and was positive for methamphetamines on admit. She admits to many years of use. On counseling for cessation she states that "I am who I am" and is uninterested in attempting further cessation. She admits to skin popping in numerous locations. She does have numerous areas of erythema and edema to R. thigh, L. calf, abdomen that fit this picture. She also smokes 1ppd. She is quite emotionally labile and with minimal manipulation swings at staff (tobi. when attempting to examine wound to thigh). We were unable to fully appreciate her wound or redress it at this time due to these behaviors. She did also experience seizure activity while we were in the room as well. She did come out of her seizure without evidence of post- ictal state. Her vitals were abnormal during event but she had lost her sat monitor (sats normal upon replacing). My suspicion is for non-epileptiform seizure. Malingering favored. UDS positive for meth and opiates. Preliminary wound culture S. aureus. She is appropriately on broad spectrum antibiotics. History is also positive for HCV, PEM and anemia. She denies DM2. Past Medical History: Admits Heart Disease acute vs. chronic renal failure, COPD with chronic resp. failure, PEM, anemia, HCV (chronic), Tobaccoism, Bipolar mood d/o Smoking Status: Heavy Tobacco Smoker (1ppd) Recreational Drug Use: Yes (methamphetamines) Review of Systems Cardiovascular: Chest Pain Other systems Difficult to fully assess due to mental status Exam Vital Signs Date Time Temp Pulse Resp B/P (MAP) Pulse Ox O2 Delivery O2 Flow Rate FiO2 04/01/23 10:00 73 21 139/79 (99) 96 Nasal Cannula 3.00 04/01/23 08:00 36.1 Capillary Refill : General Appearance: moderate distress (swinging at staff throughout the exam) HEENT: other (hearing wnl. Extremely poor dentition) Neck: full range of motion Cardiovascular: tachycardia (with any exam) Respiratory: no respiratory distress, no accessory muscle use, other (continuous oxygen) Extremities: inflammation, swelling Neurologic/Psychiatric: alert, oriented x 3, other (rocking with conversation, flight of ideas, pressure speech at times, calling out and attempting to strike staff repeatedly with minimal exam) Skin: warm/dry Skin Problem Location: torso, lower extremities Skin Character: erythema, swelling, warm R. ant. thigh: 0.5x1.2x0.7cm. The epithelialization is none. There is undermining that is unable to be fully appreciated due to behaviors, Drainage is large and serosanguinous. Granulation is none. Necrotic is none. Margins are flat. Results Laboratory Tests 03/31/23 11:20: White Blood Count 10.5, Red Blood Count 3.91, Hemoglobin 10.0L, Hematocrit 32L, Mean Corpuscular Volume 81, Mean Corpuscular Hemoglobin 26, Mean Corpuscular Hemoglobin Concent 32, Red Cell Distribution Width 17.2H, Platelet Count 423H, Mean Platelet Volume 9.8, Immature Granulocyte % (Auto) 0, Neutrophils (%) (Auto) 87H, Lymphocytes (%) (Auto) 7L, Monocytes (%) (Auto) 4, Eosinophils (%) (Auto) 1, Basophils (%) (Auto) 0, Neutrophils # (Auto) 9.2H, Lymphocytes # (Auto) 0.8L, Monocytes # (Auto) 0.5, Eosinophils # (Auto) 0.1, Basophils # (Auto) 0.0, Immature Granulocyte # (Auto) 0.0, Neutrophils % (Manual) 89, Lymp hocytes % (Manual) 7, Monocytes % (Manual) 1, Eosinophils % (Manual) 1, Band Neutrophils 2, Hypochromasia SLIGHT, Anisocytosis SLIGHT, Microcytosis SLIGHT, Target Cells SLIGHT, Prothrombin Time 14.0, INR Comment 1.1, Activated Partial Thromboplast Time 42H, Sodium Level 139, Potassium Level 5.6H, Chloride Level 104, Carbon Dioxide Level 25, Anion Gap 10, Blood Urea Nitrogen 46H, Creatinine 2.50H, Estimat Glomerular Filtration Rate 21, BUN/Creatinine Ratio 18, Glucose Level 120H, Lactic Acid Level 1.04, Calcium Level 8.3L, Corrected Calcium 8.9, Magnesium Level 1.7, Total Bilirubin 0.2, Aspartate Amino Transf (AST/SGOT) 16, Alanine Aminotransferase (ALT/SGPT) 15, Alkaline Phosphatase 94, Troponin I 0.160H, B-Type Natriuretic Peptide 377.7H, Total Protein 6.9, Albumin 3.3, Lipase 54 03/31/23 13:03: Urine Opiates Screen POSITIVEH, Urine Oxycodone Screen NEGATIVE, Urine Methadone Screen NEGATIVE, Urine Propoxyphene Screen NEGATIVE, Urine Barbiturates Screen NEGATIVE, Ur Tricyclic Antidepressants Screen NEGATIVE, Urine Phencyclidine Screen NEGATIVE, Urine Amphetamines Screen POSITIVEH, Urine Methamphetamines Screen POSITIVEH, Urine Benzodiazepines Screen NEGATIVE, Urine Cocaine Screen NEGATIVE, Urine Cannabinoids Screen NEGATIVE 03/31/23 15:50: Influenza Type A (RT-PCR) Not Detected, Influenza Type B (RT-PCR) Not Detected, SARS-CoV-2 RNA (RT-PCR) Not Detected 03/31/23 16:03: White Blood Count 15.4H, Red Blood Count 3.72L, Hemoglobin 9.5L, Hematocrit 31L, Mean Corpuscular Volume 82, Mean Corpuscular Hemoglobin 26, Mean Corpuscular Hemoglobin Concent 31L, Red Cell Distribution Width 17.4H, Platelet Count 348, Mean Platelet Volume 10.2, Activated Partial Thromboplast Time 131*H 03/31/23 23:20: Activated Partial Thromboplast Time > 200*H 04/01/23 03:50: White Blood Count 11.7H, Red Blood Count 3.60L, Hemoglobin 9.2L, Hematocrit 30L, Mean Corpuscular Volume 83, Mean Corpuscular Hemoglobin 26, Mean Corpuscular Hemoglobin Concent 31L, Red Cell Distribution Width 17.2H, Platelet Count 346, Mean Platelet Volume 9.9, Immature Granulocyte % (Auto) 0, Neutrophils (%) (Auto) 83H, Lymphocytes (%) (Auto) 11L, Monocytes (%) (Auto) 4, Eosinophils (%) (Auto) 1, Basophils (%) (Auto) 0, Neutrophils # (Auto) 9.7H, Lymphocytes # (Auto) 1.3, Monocytes # (Auto) 0.5, Eosinophils # (Auto) 0.2, Basophils # (Auto) 0.0, Immature Granulocyte # (Auto) 0.0, Sodium Level 138, Potassium Level 4.7, Chloride Level 111H, Carbon Dioxide Level 20L, Anion Gap 7, Blood Urea Nitrogen 33H, Creatinine 1.64H, Estimat Glomerular Filtration Rate 35, BUN/Creatinine Ratio 20, Glucose Level 84, Calcium Level 7.8L, Corrected Calcium 8.8, Magnesium Level 1.8, Total Bilirubin 0.2, Aspartate Amino Transf (AST/SGOT) 13, Alanine Aminotransferase (ALT/SGPT) 13, Alkaline Phosphatase 85, Total Protein 5.9L, Albumin 2.7L 04/01/23 06:27: Activated Partial Thromboplast Time > 200*H Microbiology 03/31/23 Gram Stain, Resulted Pending 03/31/23 Wound Culture - Preliminary, Resulted Staphylococcus aureus Microbiology 03/31/23 Gram Stain, Resulted Pending 03/31/23 Wound Culture - Preliminary, Resulted Staphylococcus aureus Assessment/Plan/Dx Assessment: 1. Numerous areas of cellulitis and abscess from skin popping 2. Methamphetamine abuse 3. Tobaccoism 4. Anemia 5. PEM moderate 6. Acute on chronic respiratory failure 7. HCV (chronic) 8. Non-epileptiform seizures suspected Plan: 1. Cleanse with vashe and pack daily with iodoform and BFD. Patient will require sedation prior to dressing changes for safety of patient and staff. We were unable to redress while in room 2. Counseling on cessation provided 3. Counseling on cessation provided 4. Defer to primary team 5. Protein supplementation ordered already 6. Defer to primary team 7. Defer to primary team 8. Defer to primary team 9. Disp: These wounds will continue to be an issue and are non-healable with continued methamphetamine usage. TAY CALIX MD Apr 01, 2023 10:13
[2023-04-01] MEDS ORDERED: FAMO20TA5 PO (10:14)
[2023-04-01] MEDS ORDERED: VALS40TA9 PO (10:14)
[2023-04-01] MEDS ORDERED: AMLO-251 PO (10:14)
[2023-04-01] MEDS ORDERED: DIVA-74 PO (10:14)
[2023-04-01] MEDS ORDERED: CARV25TA PO (10:14)
[2023-04-01] MEDS ORDERED: SULF-221 PO (10:14)
[2023-04-01] MEDS ORDERED: MTP100TCR PO (10:14)
[2023-04-01] MEDS ORDERED: OLN5T PO (10:14)
[2023-04-01] MEDS ORDERED: LEVE500T6 PO (10:14)
--- NOTE | 2023-04-01 10:51 | Tele-ICU Progress Note ---
Subjective Date Seen by a Provider: Apr 01, 2023 Subjective/Events-last exam (Tele-ICU Physician , Progress Note ) Service provided via interactive audio and video telecommunications E-CARE system to a patient admitted to ICU bed in [facility]. Patient is seen today due to persistent need of ICU care Available chart/ vitals / labs / Images reviewed Video assessment done using teleICU camera, rest of exam as per RN Discussed with RN Events overnight : Afebrile hemodynamically stable Respiratory - I/O = pos Drips: 150 ns Pressors- no Hospital course: (03/31) 62 y/o F - Chest Pain - ?Pneumonia - Hypoxia - ^Trop. +Amph - +Meth - Opiates. 04/01 -AAO , mild agitation at times , 3L NC , PRECEDEX1.5 A/P Right infiltrate on CXR - ? PNA vs infarction suggested by readiology vs metastatic abscess with empyema - heparin gtt started with suspicious for PE Right tight abscess with multiple other area abscesses ( presumed dirty needle - wound care consult - ABX started , Cx + for STAPH - blood cx pending , HAS PORT LEFT _ at risk for bacteremia - follow STEVE / CKD - improved with IVF - follow Agitation - on precedex 1.5 - ?withthrawal Chronic intermittent chest pain of undetermined etiology - Cardiac cath of 02-22-[address] Jenkins showed only mild CAD. LVEF 30%. - Echo of 05-28-[address] Landis showed LVEF 50-55%. Grade 1 diastolic dysfunction. LA dilated. Mild MR. Aortic root dilatation 3.7cm. - MPI of 05-28-[address] Landis showed no evidence of ischemia or infarction. LVEF 55-60% Hypoxia - with infiltrate / copd - on 3 l NC - monitor for now Meth abuse -monitor for withdrawal DM II - ISS Hep C (+) COPD -prn nrbs Lines : periph + PORT LEFT , (Central Line Necessity Reviewed) [place]: 03/31 OG: Nutrition: po Analgesia: Anxiety/ delirium VTE Prophylaxis: heparin gtt Stress Ulcer Prophylaxis: na Plans in collaboration with bedside consultants and IM MDs. Discussed with RN to reach out if any questions or concerns Case and care daily discussed on multidisciplinary rounds ( RN, PharmD, Managing Supervisor , Respiratory Therapy, textile pin worker ) A total of 20 minutes of critical care time was devoted to this patient today, required to treat and/or prevent further deterioration of critical care condition ( as above ) . I am remotely monitoring this patient from another state. I am unable to do the bedside exam, and history/physical and pertinent information is taken from other notes in the computer and bedside staff. Sepsis Event Evaluation Height, Weight, BMI Height: 5'3.00" Weight: 155lbs. 8.0oz. 70.335906hn; 30.39 BMI Method:Stated Focused Exam Lactate Level 03/31/23 11:20: Lactic Acid Level 1.04 Exam Exam Patient acknowledged, consented, and participated in this virtual visit which was conducted using real time audio/video Vital Signs Date Time Temp Pulse Resp B/P (MAP) Pulse Ox O2 Delivery O2 Flow Rate FiO2 04/01/23 10:00 73 21 139/79 (99) 96 Nasal Cannula 3.00 04/01/23 09:00 83 37 125/90 (102) 98 Nasal Cannula 3.00 04/01/23 08:10 100 Nasal Cannula 3.00 04/01/23 08:00 36.1 04/01/23 08:00 69 23 127/66 (86) 100 Nasal Cannula 3.00 04/01/23 07:00 73 04/01/23 07:00 73 21 145/78 (100) 100 Ambu Bag 3.00 04/01/23 06:24 Nasal Cannula 3.00 04/01/23 06:00 71 17 130/72 (91) 100 Nasal Cannula 3.00 04/01/23 05:00 71 18 152/93 (112) 99 Nasal Cannula 3.00 04/01/23 04:14 95 Nasal Cannula 3.00 04/01/23 04:14 36.9 04/01/23 04:00 69 17 146/85 (105) 95 Nasal Cannula 3.00 04/01/23 03:00 70 17 141/89 (106) 100 Nasal Cannula 3.00 04/01/23 02:00 71 14 131/88 (102) 98 Nasal Cannula 3.00 04/01/23 01:35 71 04/01/23 01:00 73 15 138/81 (100) 99 Nasal Cannula 3.00 04/01/23 00:29 96 Nasal Cannula 3.00 04/01/23 00:00 68 14 123/79 (94) 97 Nasal Cannula 3.00 03/31/23 23:27 36.5 Nasal Cannula 3.00 03/31/23 23:00 68 28 115/78 (90) 91 OxyMask 5.00 03/31/23 22:00 68 21 109/66 (80) 95 OxyMask 5.00 03/31/23 21:00 73 17 103/68 (80) 97 OxyMask 5.00 03/31/23 20:00 71 18 98/60 (73) 94 OxyMask 5.00 03/31/23 19:58 94 OxyMask 5.00 03/31/23 19:39 36.6 03/31/23 19:38 OxyMask 5.00 03/31/23 19:18 73 03/31/23 19:00 74 16 122/65 (84) 96 OxyMask 7.00 03/31/23 18:00 75 19 118/65 (82) 92 OxyMask 7.00 03/31/23 17:00 80 20 111/63 (79) 92 OxyMask 7.00 03/31/23 16:00 82 22 107/55 (72) 93 OxyMask 7.00 03/31/23 16:00 91 OxyMask 7.00 03/31/23 15:00 83 21 110/65 (80) 93 OxyMask 7.00 03/31/23 14:49 91 OxyMask 7.00 03/31/23 14:45 82 20 105/61 (76) 93 OxyMask 7.00 03/31/23 14:15 84 121/68 95 OxyMask 7.00 03/31/23 11:20 OxyMask 8.00 03/31/23 11:08 39.3 99 146/84 (104) 93 OxyMask I & O 04/01/23 07:00 Intake Total 3240 ml Output Total 2175 ml Balance 1065 ml Height & Weight Height: 5'3.00" Weight: 155lbs. 8.0oz. [id number]; 30.39 BMI Method:Stated General Appearance: Other HEENT: PERRL/EOMI, Normal ENT Inspection, Pharynx Normal Neck: Full Range of Motion, Normal Inspection, Non Tender, Supple Respiratory: Lungs Clear, Normal Breath Sounds, No Accessory Muscle Use, No Re spiratory Distress, Other Cardiovascular: Regular Rate, Rhythm, No Edema, Normal Peripheral Pulses Extremity: Normal Capillary Refill, Normal Inspection, Normal Range of Motion, Non Tender, No Calf Tenderness, No Pedal Edema Neurologic/Psychiatric: Alert, No Motor/Sensory Deficits Skin: Normal Color, Warm/Dry Results Lab Laboratory Tests 03/31/23 11:20 03/31/23 16:03 04/01/23 03:50 Assessment/Plan Assessment/Plan 1 MEAGAN ZAMORA MD Apr 01, 2023 10:51
[2023-04-01] MEDS ORDERED: RT-ALBUTEROL/IPRATROPIUM 3 ML (DUONEB) VIAL INH PRN (11:00)
[2023-04-01] MEDS ORDERED: NS IV 1000 ML 1,000 ML IV SCH (11:17)
[2023-04-01] MEDS ORDERED: VANCOMYCIN INJECTION 1,000 MG in NS (IVPB) 250 ML IV SCH (16:00)
--- NOTE | 2023-04-01 16:28 | Diagnostic Imaging Report ---
INDICATION: Pulmonary embolism. TECHNIQUE: Patient was administered 5.0 mCi technetium-99m MAA intravenously, and imaging over the chest was performed in multiple obliquities. FINDINGS: There is homogeneous perfusion to both lungs. No pleural-based perfusion defects are seen. IMPRESSION: Normal perfusion lung scan. Dictated by: Dictated on workstation # [id number]
[2023-04-01] MEDS: ENOXAPARIN 40 MG/0.4 ML (LOVENOX) SYR SC SCH (18:06)
[2023-04-01] MEDS: HYDROmorphone 2 MG/ML VIAL (DILAUDID) IV PRN ×2 (19:30→23:34)
[2023-04-01] MEDS: MUPIROCIN 2% OINT 22 GM (BACTROBAN) TUBE NSEACH SCH (20:00)
[2023-04-01] MEDS: OLANZapine 2.5 MG (ZyPREXA) TAB PO SCH (20:02)
[2023-04-01] MEDS: DIVALPROEX 250 MG DELAYED RELEASE (DEPAKOTE) TAB PO SCH (20:02)
[2023-04-01] MEDS: amLODIPine 5 MG (NORVASC) TAB PO SCH (20:02)
[2023-04-01] MEDS: HYPOCHLOROUS ACID/NaCl (VASHE) 250 ML IR PRN (20:03)
[2023-04-01] MEDS: FAMOTIDINE 20 MG (PEPCID) TABLET PO SCH (20:03)
[2023-04-01] MEDS ORDERED: NON-FORMULARY MEDICATION 1 EA EA (Carvedilol 25 MG) PO SCH (21:00)
[2023-04-01] MEDS ORDERED: meTOprolol SUCCINATE 100 MG (TOPROL XL) TAB PO SCH (21:00)
[2023-04-01] MEDS ORDERED: VALSARTAN 40 MG PO SCH (21:00)
[2023-04-01] MEDS ORDERED: NON-FORMULARY MEDICATION 1 EA EA (Olanzapine 5 MG) PO SCH (21:00)
[2023-04-01] MEDS ORDERED: amLODIPine 10 MG (NORVASC) TAB PO SCH (21:00)
[2023-04-01] MEDS ORDERED: VALSARTAN 80 MG (DIOVAN) TAB PO SCH (21:00)
[2023-04-02] MEDS: CEFEPIME INJECTION 1,000 MG in NS (IVPB) 50 ML IV SCH ×2 (01:23→08:51)
[2023-04-02] MEDS ORDERED: ONDANSETRON 4 MG/2 ML (SDV) Z0FRAN ONE (03:29)
[2023-04-02] MEDS: ONDANSETRON 4 MG/2 ML (SDV) Z0FRAN IVP PRN ×4 (03:30→16:39)
[2023-04-02 05:22] LABS: BASOPHILS % (AUTO) 1 % (0-10); EOSINOPHILS # (AUTO) 0.2 10^3/uL (0.0-0.3); EOSINOPHILS % (AUTO) 3 % (0-10); HEMATOCRIT 29 % (35-52); HEMOGLOBIN 9.1 g/dL (11.5-16.0); LYMPHOCYTES % (AUTO) 13 % (12-44); MEAN CORPUSCULAR HEMOGLOBIN 25 pg (25-34); MEAN CORPUSCULAR HGB CONC 31 g/dL (32-36); MEAN CORPUSCULAR VOLUME 82 fL (80-99); MEAN PLATELET VOLUME 10.4 fL (9.0-12.2); MONOCYTES # (AUTO) 0.4 10^3/uL (0.0-1.0); MONOCYTES % (AUTO) 6 % (0-12); NEUTROPHILS # (AUTO) 5.6 10^3/uL (1.8-7.8); NEUTROPHILS % (AUTO) 77 % (42-75); PLATELET COUNT 397 10^3/uL (130-400); WHITE BLOOD COUNT 7.3 10^3/uL (4.3-11.0)
[2023-04-02 05:28] LABS: ALBUMIN 2.9 GM/DL (3.2-4.5); POTASSIUM 5.1 MMOL/L (3.6-5.0)
[2023-04-02 05:29] LABS: CALCIUM 8.6 MG/DL (8.5-10.1)
[2023-04-02 05:31] LABS: TOTAL PROTEIN 6.4 GM/DL (6.4-8.2)
[2023-04-02 05:32] LABS: BILIRUBIN,TOTAL 0.2 MG/DL (0.1-1.0)
[2023-04-02 05:34] LABS: CREATININE SERUM 1.33 MG/DL (0.60-1.30)
[2023-04-02] MEDS: MUPIROCIN 2% OINT 22 GM (BACTROBAN) TUBE NSEACH SCH ×2 (08:51→20:30)
[2023-04-02] MEDS: amLODIPine 5 MG (NORVASC) TAB PO SCH ×2 (08:51→20:30)
[2023-04-02] MEDS: DIVALPROEX 250 MG DELAYED RELEASE (DEPAKOTE) TAB PO SCH ×2 (08:59→20:30)
--- NOTE | 2023-04-02 09:29 | Physical Therapy Evaluation ---
PT Evaluation-General Medical Diagnosis Admission Date Mar 31, 2023 at 14:14 Medical Diagnosis: Acute Respiratory Failure Onset Date: Apr 01, 2023 Therapy Diagnosis Therapy Diagnosis: unsteady gait Height/Weight Height (Feet): 5 Height (Inches): 3.00 Weight (Pounds): 155 Weight (Ounces): 8.0 Precautions Precautions/Isolations: Fall Prevention, Standard Precautions Referral Physician: Deepika Patel Reason for Referral: Evaluation/Treatment Medical History Pertinent Medical History: Arthritis, COPD, CVA, DM, GERD, HTN, Renal Insufficiency, Smoking, TBI Additional Medical History Meth and Opiod addiction Current History Admitted to ER secondary to difficulty breathing. Social History Pt reports she walks wherever she wants using a 4 wheel walker. Prior Prior Level of Function SCALE: Activities may be completed with or without assistive devices. 5-Tzbifvsytz-rryemia completes the activity by him/herself with no assistance from a helper. 5-Set-up or Clean-up Assistance-helper sets up or cleans up; patient completes activity. [place] assists only prior to or following the activity. 4-Supervision or Touching Assistance-helper provides verbal cues and/or touching/steadying and/or contact guard assistance as patient completes activity. Assistance may be provided throughout the activity or intermittently. 3-Partial/Moderate Assistance-helper does LESS THAN HALF the effort. [place] lifts, holds or supports trunk or limbs, but provides less than half the effort. 2-Substantial/Maximal Assistance-helper does MORE THAN HALF the effort. [place] lifts or holds trunk or limbs and provides more than half the effort. 6-Xhlngjanw-wkasdy does ALL the effort. Patient does none of the effort to compl ete the activity. Or, the assistance of 2 or more helpers is required for the patient to complete the activity. If activity was not attempted, code reason: 7-Patient Refused. 9-Not Applicable-not attempted and the patient did not perform the activity before the current illness, exacerbation or injury. 10-Not Attempted due to Environmental Limitations-(lack of equipment, weather restraints, etc.). 88-Not Attempted due to Medical Conditions or Safety Concerns. Bed Mobility: 6 Transfers (B,C,W/C): 6 Gait: 6 PT Evaluation-Current Subjective Pt reports she is feeling nauseated and has a headache. She is willing to get out of bed and see what she can do. Objective Patient Orientation: Person, Place, Time Attachments: Oxygen, [place] Catheter, IV Sensory Vision: Functional Hearing: Functional Transfers Roll Left to Right (QC): 6 Sit to Lying (QC): 6 Lying to Sitting/Side of Bed(Q: 6 Sit to Stand (QC): 6 Chair/Lvf-xc-Xjoxk Xfer(QC): 4 Gait Does the Patient Walk?: Yes Mode of Locomotion: Walk Anticipated Mode of Locomotion: Walk Walk 10 feet (QC): 4 Distance: 10 Gait Assistive Device: FWW Comments/Gait Description Gait limited by wretching and need to vomit. Returned to bed. Balance Sitting Static: Fair Sitting Dynamic: Fair Standing Static: Fair Standing Dynamic: Fair Assessment/Needs Pt independent getting in and out of bed. She is a bit impulsive. Limited ambulation at time of evaluation due to nausea. Pt has fair dynamic balance. She will benefit from further gait assessment when she is feeling better. Pt has capacity to walk further than she demonstrated at time of initial assessment. Rehab Potential: Good Post Rehab Potential-Barriers: none PT Assisted Goals Assisted Goals PT Assisted Goals Time Frame: Apr 09, 2023 Roll Left & Right (QC): 6 Sit to Lying (QC): 6 Lying-Sitting on Side/Bed(QC): 6 Sit to Stand (QC): 6 Chair/Sya-en-Wcdvx Xfer(QC): 6 Toilet Transfer (QC): 6 Car Transfer (QC): 6 Walk 150 ft (QC): 6 PT Plan Problem List Problem List: Balance, Gait Treatment/Plan Treatment Plan: Continue Plan of Care Treatment Plan: Gait, Safety Treatment Duration: Apr 09, 2023 Frequency: 5 times per week Estimated Hrs Per Day: .25 hour per day Patient and/or Family Agrees t: Yes Time Time In: 0900 Time Out: 920 DATE: Apr 02, 2023 Total Billed Treatment Time: 20 Total Billed Treatment visit, evaluation moderate complexity 20 min ANTONIETTA ASHBY PT Apr 02, 2023 09:29
--- NOTE | 2023-04-02 10:55 | Progress Note ---
Subjective Subjective/Events-last exam Pt states she is feeling pretty well but not back to her normal self yet. She doesn't remember what happened, just being on the phone and her worker told her she was calling the ambulance. Focused Exam Lactate Level 03/31/23 11:20: Lactic Acid Level 1.04 Objective Exam Last Set of Vital Signs Vital Signs Date Time Temp Pulse Resp B/P (MAP) Pulse Ox O2 Delivery O2 Flow Rate FiO2 04/02/23 09:21 37.0 79 16 121/69 (86) 98 Nasal Cannula 3.50 Capillary Refill : I&O Intake and Output 04/02/23 00:00 Intake Total 6395 ml Output Total 3825 ml Balance 2570 ml Intake Oral 3545 ml IV Total 2850 ml Output Urine Total 3825 ml General: Alert, No Acute Distress Lungs: Clear to Auscultation, Normal Air Movement Heart: Regular Rate, No Murmurs Abdomen: Normal Bowel Sounds, Soft Neuro: Other (does not make direct eye contact, holds mouth in sort of grimace position, loud speech) Psych/Mental Status: Other (fixed smile) Results/Procedures Lab Laboratory Tests 04/01/23 13:15: Activated Partial Thromboplast Time > 200*H 04/01/23 17:52: Glucometer 116H 04/02/23 04:50: White Blood Count 7.3, Red Blood Count 3.58L, Hemoglobin 9.1L, Hematocrit 29L, Mean Corpuscular Volume 82, Mean Corpuscular Hemoglobin 25, Mean Corpuscular Hemoglobin Concent 31L, Red Cell Distribution Width 17.2H, Platelet Count 397, Mean Platelet Volume 10.4, Immature Granulocyte % (Auto) 0, Neutrophils (%) (Auto) 77H, Lymphocytes (%) (Auto) 13, Monocytes (%) (Auto) 6, Eosinophils (%) (Auto) 3, Basophils (%) (Auto) 1, Neutrophils # (Auto) 5.6, Lymphocytes # (Auto) 1.0, Monocytes # (Auto) 0.4, Eosinophils # (Auto) 0.2, Basophils # (Auto) 0.0, Immature Granulocyte # (Auto) 0.0, Sodium Level 138, Potassium Level 5.1H, Chloride Level 108H, Carbon Dioxide Level 23, Anion Gap 7, Blood Urea Nitrogen 26H, Creatinine 1.33H, Estimat Glomerular Filtration Rate 45, BUN/Creatinine Ratio 20, Glucose Level 91, Calcium Level 8.6, Corrected Calcium 9.5, Total Bilirubin 0.2, Aspartate Amino Transf (AST/SGOT) 16, Alanine Aminotransferase (ALT/SGPT) 13, Alkaline Phosphatase 85, Total Protein 6.4, Albumin 2.9L Microbiology 03/31/23 Gram Stain - Final, Resulted 03/31/23 Wound Culture - Preliminary, Resulted Staphylococcus aureus 03/31/23 MRSA Screen - Final, Complete 03/31/23 Blood Culture - Preliminary, Resulted Staph, Coag Neg (MANAGER FIELD SERVICE) Assessment/Plan Assessment/Plan (1) Pneumonia Status: Acute Assessment & Plan: Possible pneumonia vs infarct vs hemorrhage on CXR. V/Q scan low probability for PE. Narrow antibiotics to ceftriaxone based on wound culture. Qualifiers: Qualified Codes: J18.9 - Pneumonia, unspecified organism (2) STEVE (acute kidney injury) Status: Acute Assessment & Plan: Improving, secondary to infection versus dehydration, continue to monitor closely. (3) Open thigh wound Status: Acute Assessment & Plan: Appreciate wound care recommendations. Qualifiers: Qualified Codes: S71.101A - Unspecified open wound, right thigh, initial encounter (4) Hypertension Status: Chronic Assessment & Plan: Home amlodipine, carvedilol and valsartan resumed, will hold valsartan today due to hyperkalemia. Qualifiers: Qualified Codes: I10 - Essential (primary) hypertension (5) Chronic kidney disease, stage 3 Status: Chronic (6) Anemia Status: Chronic Assessment & Plan: Suspect multifactorial- chart review indicates 11/2019 she had iron studies showing very low iron, but also low TIBC. Appears she had EGD in 2007, no other EGD/colo in this system. Suspect chronic disease with iron deficiency, depending on goals, would recommend outpatient further work-up with EGD/colo. Qualifiers: Qualified Codes: D63.8 - Anemia in other chronic diseases classified elsewhere (7) Seizure disorder Status: Chronic Assessment & Plan: Resume home meds, no seizures since admit. (8) COPD (chronic obstructive pulmonary disease) Status: Chronic Assessment & Plan: Resume home meds, supplemental O2 as needed. (9) Acute on chronic respiratory failure with hypoxemia Status: Acute Assessment & Plan: Resolving, down to 3 lpm supplemental oxygen this morning. (10) Methamphetamine intoxication Status: Acute Assessment & Plan: Chronic use, positive on admit possibly contributing to altered mental status. Now resolved. (11) CHF (congestive heart failure) Status: Chronic (12) Elevated troponin Status: Chronic Assessment & Plan: Has had chronic troponin elevation, Cardiology consulted in ER, no acute intervention recommended. (13) DVT prophylaxis Status: Acute Assessment & Plan: Enoxaparin MATTHEW DAVID MD Apr 02, 2023 10:55
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
[2023-04-02] MEDS ORDERED: cefTRIAXone IV/IM 1,000 MG in NS (IVPB) 50 ML IV SCH (11:30)
[2023-04-02] MEDS: HYDROmorphone 2 MG/ML VIAL (DILAUDID) IV PRN ×3 (13:01→20:30)
[2023-04-02] MEDS ORDERED: ceFAZolin INJECTION 2,000 MG VIAL IV SCH (14:00)
[2023-04-02] MEDS ORDERED: TROUGH ORDER-PHARMACY XX ONE (15:00)
[2023-04-02 15:55] VITALS: BP 147/74
[2023-04-02] MEDS: ENOXAPARIN 40 MG/0.4 ML (LOVENOX) SYR SC SCH (17:55)
[2023-04-02 19:30] VITALS: BP 149/80
[2023-04-02] MEDS: FAMOTIDINE 20 MG (PEPCID) TABLET PO SCH (20:30)
[2023-04-02] MEDS: OLANZapine 2.5 MG (ZyPREXA) TAB PO SCH (20:30)
[2023-04-03] VITALS (7 sets, daily range): BP systolic 126–157; BP diastolic 72–93
[2023-04-03 05:09] LABS: BASOPHILS % (AUTO) 0 % (0-10); EOSINOPHILS # (AUTO) 0.3 10^3/uL (0.0-0.3); EOSINOPHILS % (AUTO) 4 % (0-10); HEMATOCRIT 31 % (35-52); HEMOGLOBIN 9.4 g/dL (11.5-16.0); LYMPHOCYTES % (AUTO) 14 % (12-44); MEAN CORPUSCULAR HEMOGLOBIN 25 pg (25-34); MEAN CORPUSCULAR HGB CONC 30 g/dL (32-36); MEAN CORPUSCULAR VOLUME 82 fL (80-99); MEAN PLATELET VOLUME 9.3 fL (9.0-12.2); MONOCYTES # (AUTO) 0.4 10^3/uL (0.0-1.0); MONOCYTES % (AUTO) 6 % (0-12); NEUTROPHILS # (AUTO) 5.4 10^3/uL (1.8-7.8); NEUTROPHILS % (AUTO) 75 % (42-75); PLATELET COUNT 396 10^3/uL (130-400); WHITE BLOOD COUNT 7.2 10^3/uL (4.3-11.0)
[2023-04-03 05:18] LABS: ALBUMIN 2.9 GM/DL (3.2-4.5); POTASSIUM 6.4 MMOL/L (3.6-5.0)
[2023-04-03 05:19] LABS: CALCIUM 8.6 MG/DL (8.5-10.1)
[2023-04-03 05:20] LABS: TOTAL PROTEIN 6.6 GM/DL (6.4-8.2)
[2023-04-03 05:22] LABS: BILIRUBIN,TOTAL 0.2 MG/DL (0.1-1.0)
[2023-04-03 05:24] LABS: CREATININE SERUM 1.31 MG/DL (0.60-1.30)
[2023-04-03] MEDS: amLODIPine 5 MG (NORVASC) TAB PO SCH ×2 (08:22→19:47)
[2023-04-03] MEDS: MUPIROCIN 2% OINT 22 GM (BACTROBAN) TUBE NSEACH SCH ×2 (08:23→19:47)
[2023-04-03] MEDS: [UNRECOGNIZED DRUG - REMARK] PO SCH (08:23)
[2023-04-03] MEDS: DIVALPROEX 250 MG DELAYED RELEASE (DEPAKOTE) TAB PO SCH ×2 (08:23→19:47)
--- NOTE | 2023-04-03 09:07 | Progress Note ---
Subjective Subjective/Events-last exam Pt states she is feeling fine, denies concerns. Focused Exam Lactate Level 03/31/23 11:20: Lactic Acid Level 1.04 Objective Exam Last Set of Vital Signs Vital Signs Date Time Temp Pulse Resp B/P (MAP) Pulse Ox O2 Delivery O2 Flow Rate FiO2 04/03/23 07:45 36.8 84 22 157/86 (109) 96 Nasal Cannula 5.00 Capillary Refill : I&O Intake and Output 04/02/23 23:59 Intake Total 1290 ml Output Total 3150 ml Balance -1860 ml Intake Oral 940 ml IV Total 350 ml Output Urine Total 3150 ml # [place] 1 General: Alert, Oriented X3, No Acute Distress Lungs: Clear to Auscultation, Normal Air Movement Heart: Regular Rate Abdomen: Normal Bowel Sounds, Soft Extremities: No Edema Neuro: Other (loud speech, fixed smile) Psych/Mental Status: Mental Status NL Results/Procedures Lab Laboratory Tests 04/03/23 05:00: White Blood Count 7.2, Red Blood Count 3.78L, Hemoglobin 9.4L, Hematocrit 31L, Mean Corpuscular Volume 82, Mean Corpuscular Hemoglobin 25, Mean Corpuscular Hemoglobin Concent 30L, Red Cell Distribution Width 17.0H, Platelet Count 396, Mean Platelet Volume 9.3, Immature Granulocyte % (Auto) 1, Neutrophils (%) (Auto) 75, Lymphocytes (%) (Auto) 14, Monocytes (%) (Auto) 6, Eosinophils (%) (Auto) 4, Basophils (%) (Auto) 0, Neutrophils # (Auto) 5.4, Lymphocytes # (Auto) 1.0, Monocytes # (Auto) 0.4, Eosinophils # (Auto) 0.3, Basophils # (Auto) 0.0, Immature Granulocyte # (Auto) 0.0, Sodium Level 138, Potassium Level 6.4H, Chloride Level 106, Carbon Dioxide Level 25, Anion Gap 7, Blood Urea Nitrogen 26H, Creatinine 1.31H, Estimat Glomerular Filtration Rate 46, BUN/Creatinine R atio 20, Glucose Level 90, Calcium Level 8.6, Corrected Calcium 9.5, Total Bilirubin 0.2, Aspartate Amino Transf (AST/SGOT) 11, Alanine Aminotransferase (ALT/SGPT) 12, Alkaline Phosphatase 84, Total Protein 6.6, Albumin 2.9L Microbiology 03/31/23 Gram Stain - Final, Resulted 03/31/23 Wound Culture - Preliminary, Resulted Staphylococcus aureus 03/31/23 MRSA Screen - Final, Complete 03/31/23 Blood Culture - Preliminary, Resulted Staph, Coag Neg (PUBLIC HEALTH REPRESENTATIVE) Assessment/Plan Assessment/Plan (1) Pneumonia Status: Acute Assessment & Plan: Possible pneumonia vs infarct vs hemorrhage on CXR. V/Q scan low probability for PE. Narrow antibiotics to ceftriaxone based on wound culture. 04/03 Wound culture with MRSA and blood cultures with PUBLIC HEALTH REPRESENTATIVE in 2, will change back to Vancomycin. Qualifiers: Qualified Codes: J18.9 - Pneumonia, unspecified organism (2) STEVE (acute kidney injury) Status: Resolved Assessment & Plan: Improving, secondary to infection versus dehydration, continue to monitor closely. (3) Open thigh wound Status: Acute Assessment & Plan: Appreciate wound care recommendations. Culture with MRSA. Vancomycin. Qualifiers: Qualified Codes: S71.101A - Unspecified open wound, right thigh, initial encounter (4) Hypertension Status: Chronic Assessment & Plan: 04/03- Home amlodipine, carvedilol and valsartan resumed, will hold valsartan today due to hyperkalemia. Qualifiers: Qualified Codes: I10 - Essential (primary) hypertension (5) Chronic kidney disease, stage 3 Status: Chronic Qualifiers: Qualified Codes: N18.31 - Chronic kidney disease, stage 3a (6) Anemia Status: Chronic Assessment & Plan: Suspect multifactorial- chart review indicates 11/2019 she had iron studies showing very low iron, but also low TIBC. Appears she had EGD in 2007, no other EGD/colo in this system. Suspect chronic disease with iron deficiency, depending on goals, would recommend outpatient further work-up with EGD/colo. Qualifiers: Qualified Codes: D63.8 - Anemia in other chronic diseases classified elsewhere (7) Seizure disorder Status: Chronic Assessment & Plan: Resume home meds, no seizures since admit. (8) COPD (chronic obstructive pulmonary disease) Status: Chronic Assessment & Plan: Resume home meds, supplemental O2 as needed. (9) Acute on chronic respiratory failure with hypoxemia Status: Acute Assessment & Plan: Resolving, uses 3-5 lpm at home per her report. (10) Methamphetamine intoxication Status: Acute Assessment & Plan: Chronic use, positive on admit possibly contributing to altered mental status. Now resolved. (11) CHF (congestive heart failure) Status: Chronic (12) Elevated troponin Status: Chronic Assessment & Plan: Has had chronic troponin elevation, Cardiology consulted in ER, no acute intervention recommended. (13) Hyperkalemia Status: Acute Assessment & Plan: Worsening this am, EKG okay and asymptomatic, patiromer given and will recheck BMP this afternoon. Continue to hold valsartan, low potassium diet ordered. (14) DVT prophylaxis Status: Acute Assessment & Plan: Enoxaparin MATTHEW DAVID MD Apr 03, 2023 09:07
--- NOTE | 2023-04-03 10:06 | Physical Therapy Daily Note ---
PT Daily Note-Current Subjective Patient agrees to PT. Pain Section J - Health Conditions 1. Rarely or not at all 2. Occasionally 3. Frequently 4. Almost constantly 8. Unable to answer Pain Effect on Sleep: 1 Pain Interference with Therapy: 1 Pain Interference w/Day-to-Day: 1 Mental Status Patient Orientation: Person Attachments: Oxygen, [place] Catheter Transfers SCALE: Activities may be completed with or without assistive devices. 0-Litjnvlhil-eildkxo completes the activity by him/herself with no assistance from a helper. 5-Set-up or Clean-up Assistance-helper sets up or cleans up; patient completes activity. [place] assists only prior to or following the activity. 4-Supervision or Touching Assistance-helper provides verbal cues and/or touching/steadying and/or contact guard assistance as patient completes activity. Assistance may be provided throughout the activity or intermittently. 3-Partial/Moderate Assistance-helper does LESS THAN HALF the effort. [place] lifts, holds or supports trunk or limbs, but provides less than half the effort. 2-Substantial/Maximal Assistance-helper does MORE THAN HALF the effort. [place] lifts or holds trunk or limbs and provides more than half the effort. 1-Rduapwvii-zlsppf does ALL the effort. Patient does none of the effort to complete the activity. Or, the assistance of 2 or more helpers is required for the patient to complete the activity. If activity was not attempted, code reason: 7-Patient Refused. 9-Not Applicable-not attempted and the patient did not perform the activity before the current illness, exacerbation or injury. 10-Not Attempted due to Environmental Limitations-(lack of equipment, weather restraints, etc.). 88-Not Attempted due to Medical Conditions or Safety Concerns. Sit to Lying (QC): 6 Lying to Sitting/Side of Bed(Q: 6 Sit to Stand (QC): 4 Gait Training Distance: 300' Walk 10 feet (QC): 4 Walk 50 ft with 2 Turns(QC): 4 Walk 150 ft (QC): 4 Gait Assistive Device: FWW leans on left forearm with FWW use/safe and functional gait sequence Assessment Patient remains in bed with alarm activated. Patient tolerated treatment well. PT Care Home Goals High Density Tal[place] Coater Operator Goals PT Care Home Goals Time Frame: Apr 09, 2023 Roll Left & Right (QC): 6 Sit to Lying (QC): 6 Lying-Sitting on Side/Bed(QC): 6 Sit to Stand (QC): 6 Chair/Ial-tf-Ttica Xfer(QC): 6 Toilet Transfer (QC): 6 Car Transfer (QC): 6 Walk 150 ft (QC): 6 PT Plan Treatment/Plan Treatment Plan: Continue Plan of Care Treatment Plan: Gait, Safety Treatment Duration: Apr 09, 2023 Frequency: 5 times per week Estimated Hrs Per Day: .25 hour per day Patient and/or Family Agrees t: Yes Time Time In: 838 Time Out: 858 DATE: Apr 03, 2023 Total Billed Treatment Time: 20 Total Billed Treatment 1 visit FA 20 min ANURAG GENTILE PT Apr 03, 2023 10:06
--- NOTE | 2023-04-03 10:15 | Occupational Ther Daily Note ---
OT Current Status-Daily Note Subjective Patient sitting on EOB w/ increased volume calling out she can't breathe. Calming techniques provided and patient agrees to OT. EKG performed this morning Mental Status/Objective Patient Orientation: Person, Place Attachments: [place] Catheter ADL-Treatment Sitting EOB pulls socks on feet, manages gown to cover self, stand impulsively w/o gait belt or walked in front of her, bed alarm sounds off. OT instruction provided for safety and fall precaution Therapy Code Descriptions/Definitions Functional [place] Measure: 0=Not Assessed/NA 4=Minimal Assistance 1=Total Assistance 5=Supervision or Setup 2=Maximal Assistance 6=Modified [place] 3=Moderate Assistance 7=Complete IndependenceSCALE: Activities may be completed with or without assistive devices. 2-Uqckagoowo-nifbmgw completes the activity by him/herself with no assistance from a helper. 5-Set-up or Clean-up Assistance-helper sets up or cleans up; patient completes activity. [place] assists only prior to or following the activity. 4-Supervision or Touching Assistance-helper provides verbal cues and/or touching/steadying and/or contact guard assistance as patient completes acti vity. Assistance may be provided throughout the activity or intermittently. 3-Partial/Moderate Assistance-helper does LESS THAN HALF the effort. [place] lifts, holds or supports trunk or limbs, but provides less than half the effort. 2-Substantial/Maximal Assistance-helper does MORE THAN HALF the effort. [place] lifts or holds trunk or limbs and provides more than half the effort. 5-Hfyvfdcax-jmukct does ALL the effort. Patient does none of the effort to complete the activity. Or, the assistance of 2 or more helpers is required for the patient to complete the activity. If activity was not attempted, code reason: 7-Patient Refused. 9-Not Applicable-not attempted and the patient did not perform the activity before the current illness, exacerbation or injury. 10-Not Attempted due to Environmental Limitations-(lack of equipment, weather restraints, etc.). 88-Not Attempted due to Medical Conditions or Safety Concerns. Eating (QC): 5 (spills food and beerages on tray and floor) Oral Hygiene (QC): 5 (set up required and VC to intiate on daily basis) Shower/Bathe Self (QC): 7 (declines) Upper Body Dressing (QC): 5 Lower Body Dressing (QC): 5 On/Off Footwear: 5 Toileting Hygiene (QC): 5 Toilet Transfer (QC): 5 Bed alarm activated following session Education OT Patient Education: Correct positioning, Modified ADL techniques, Progress toward Goal/Update tx plan, Purpose of tx/functional activities, Reviewed precautions, Rehab process, Safety issues, Transfer techniques, Use of adapted equipment Teaching Recipient: Patient Teaching Methods: Demonstration, Discussion Response to Teaching: Reinforcement Needed OT Residential Goals Residential Goals Time Frame: Apr 09, 2023 Eating (QC): 6 Oral Hygiene (QC): 6 Toileting Hygiene (QC): 6 Upper Body Dressing (QC): 6 Lower Body Dressing (QC): 5 (Set up for equipment as needed.) On/Off Footwear (QC): 6 Additional Goals: 1-Demonstrate ADL Tasks, 2-Verbalize Understanding, 3-ImproveStrength/Bernie 1=Demonstrate adherence to instructed precautions during ADL tasks. 2=Patient will verbalize/demonstrate understanding of assistive devices/modifications for ADL. 3=Patient will improve strength/tolerance for activity to enable patient to perform ADL's. OT Education/Plan Problem List/Assessment Assessment: Decreased Activ Tolerance, Decreased Safety Aware, Impaired Self- Care Skills Discharge Recommendations Plan/Recommendations: Continue POC Treatment Plan/Plan of Care Treatment,Training & Education: Yes Patient would benefit from OT for education, treatment and training to promote independence in ADL's, mobility, safety and/or upper extremity function for ADL's. Plan of Care: ADL Retraining, Functional Mobility, UE Funct Exercise/Act Treatment Duration: Apr 09, 2023 Frequency: 3 times per week (3-5x/week) Agreement: Yes Rehab Potential: Good Time Start Time: 08:38 Stop Time: 08:58 DATE: Apr 03, 2023 Total Time Billed (hr/min): 20 Billed Treatment Time ADL 20 BERNICE HOLT OT Apr 03, 2023 10:15
[2023-04-03] MEDS ORDERED: VANCOMYCIN INJECTION 0.1 MG in NS (IVPB) 250 ML IV SCH (11:00)
[2023-04-03] MEDS ORDERED: VANCOMYCIN 1500MG/300ML PREMIX IV NR (11:30)
[2023-04-03] MEDS: ACETAMINOPHEN 500 MG TAB (TYLENOL) PO PRN (15:57)
[2023-04-03] MEDS: ENOXAPARIN 40 MG/0.4 ML (LOVENOX) SYR SC SCH (16:48)
[2023-04-03] MEDS: FAMOTIDINE 20 MG (PEPCID) TABLET PO SCH (19:47)
[2023-04-03] MEDS: OLANZapine 2.5 MG (ZyPREXA) TAB PO SCH (19:47)
[2023-04-04 03:30] VITALS: BP 148/88
[2023-04-04 04:37] LABS: BASOPHILS % (AUTO) 1 % (0-10); EOSINOPHILS # (AUTO) 0.3 10^3/uL (0.0-0.3); EOSINOPHILS % (AUTO) 4 % (0-10); HEMATOCRIT 34 % (35-52); HEMOGLOBIN 10.4 g/dL (11.5-16.0); LYMPHOCYTES # (AUTO) 1.4 10^3/uL (1.0-4.0); LYMPHOCYTES % (AUTO) 22 % (12-44); MEAN CORPUSCULAR HEMOGLOBIN 25 pg (25-34); MEAN CORPUSCULAR HGB CONC 31 g/dL (32-36); MEAN CORPUSCULAR VOLUME 82 fL (80-99); MEAN PLATELET VOLUME 9.4 fL (9.0-12.2); MONOCYTES # (AUTO) 0.4 10^3/uL (0.0-1.0); MONOCYTES % (AUTO) 6 % (0-12); NEUTROPHILS # (AUTO) 4.3 10^3/uL (1.8-7.8); NEUTROPHILS % (AUTO) 68 % (42-75); PLATELET COUNT 485 10^3/uL (130-400); WHITE BLOOD COUNT 6.3 10^3/uL (4.3-11.0)
[2023-04-04 04:50] LABS: ALBUMIN 3.2 GM/DL (3.2-4.5); POTASSIUM 5.6 MMOL/L (3.6-5.0)
[2023-04-04 04:51] LABS: CALCIUM 9.1 MG/DL (8.5-10.1)
[2023-04-04 04:53] LABS: TOTAL PROTEIN 7.3 GM/DL (6.4-8.2)
[2023-04-04 04:54] LABS: BILIRUBIN,TOTAL 0.2 MG/DL (0.1-1.0)
[2023-04-04 04:56] LABS: CREATININE SERUM 1.39 MG/DL (0.60-1.30)
[2023-04-04 07:46] VITALS: BP 182/81
[2023-04-04] MEDS: [UNRECOGNIZED DRUG - REMARK] PO SCH (09:16)
[2023-04-04] MEDS: amLODIPine 5 MG (NORVASC) TAB PO SCH ×2 (09:16→20:01)
[2023-04-04] MEDS: DIVALPROEX 250 MG DELAYED RELEASE (DEPAKOTE) TAB PO SCH ×2 (09:16→20:01)
[2023-04-04] MEDS: MUPIROCIN 2% OINT 22 GM (BACTROBAN) TUBE NSEACH SCH ×2 (09:17→19:59)
[2023-04-04] MEDS: ACETAMINOPHEN 500 MG TAB (TYLENOL) PO PRN ×2 (09:21→17:37)
--- NOTE | 2023-04-04 10:13 | Progress Note ---
Subjective Subjective/Events-last exam Pt states she is feeling fine. She is getting ready to get in the shower, denies concerns. Objective Exam Last Set of Vital Signs Vital Signs Date Time Temp Pulse Resp B/P (MAP) Pulse Ox O2 Delivery O2 Flow Rate FiO2 04/04/23 07:46 36.0 88 20 182/81 (114) 99 Nasal Cannula 4.00 Capillary Refill : I&O Intake and Output 04/04/23 00:00 Intake Total 2040 ml Output Total 3900 ml Balance -1860 ml Intake Oral 2040 ml Output Urine Total 3900 ml # Voids 4 General: Alert, No Acute Distress Lungs: Clear to Auscultation, Other (coughing fit occurred with deep breath) Heart: Regular Rate, No Murmurs Neuro: Normal Speech Psych/Mental Status: Mood NL Results/Procedures Lab Laboratory Tests 04/03/23 16:30: Potassium Level 5.4H 04/04/23 04:30: Potassium Level 5.6H, White Blood Count 6.3, Red Blood Count 4.15, Hemoglobin 10.4L, Hematocrit 34L, Mean Corpuscular Volume 82, Mean Corpuscular Hemoglobin 25, Mean Corpuscular Hemoglobin Concent 31L, Red Cell Distribution Width 17.2H, Platelet Count 485H, Mean Platelet Volume 9.4, Immature Granulocyte % (Auto) 0, Neutrophils (%) (Auto) 68, Lymphocytes (%) (Auto) 22, Monocytes (%) (Auto) 6, Eosinophils (%) (Auto) 4, Basophils (%) (Auto) 1, Neutrophils # (Auto) 4.3, Lymphocytes # (Auto) 1.4, Monocytes # (Auto) 0.4, Eosinophils # (Auto) 0.3, Basophils # (Auto) 0.0, Immature Granulocyte # (Auto) 0.0, Sodium Level 143, Chloride Level 107, Carbon Dioxide Level 25, Anion Gap 11, Blood Urea Nitrogen 25H, Creatinine 1.39H, Estimat Glomerular Filtration Rate 43, BUN/Creatinine Ratio 18, Glucose Level 135H, Calcium Level 9.1, Corrected Calcium 9.7, Total Bilirubin 0.2, Aspartate Amino Transf (AST/SGOT) 11, Alanine Aminotransferase (ALT/SGPT) 14, Alkaline Phosphatase 93, Total Protein 7.3, Albumin 3.2 Microbiology 03/31/23 Gram Stain - Final, Complete 03/31/23 Wound Culture - Final, Complete Staphylococcus aureus 03/31/23 MRSA Screen - Final, Complete 03/31/23 Blood Culture - Preliminary, Resulted Staph, Coag Neg (ENVIRONMENTAL SERVICES TECHNICIAN) Assessment/Plan Assessment/Plan (1) Pneumonia Status: Acute Assessment & Plan: Possible pneumonia vs infarct vs hemorrhage on CXR. V/Q scan low probability for PE. Narrow antibiotics to ceftriaxone based on wound culture. 04/03 Wound culture with MRSA and blood cultures with ENVIRONMENTAL SERVICES TECHNICIAN in 2/, will change back to Vancomycin. Qualifiers: Qualified Codes: J18.9 - Pneumonia, unspecified organism (2) STEVE (acute kidney injury) Status: Resolved Assessment & Plan: Improving, secondary to infection versus dehydration, continue to monitor closely. (3) Open thigh wound Status: Acute Assessment & Plan: Appreciate wound care recommendations. Culture with MRSA. Vancomycin. Qualifiers: Qualified Codes: S71.101A - Unspecified open wound, right thigh, initial encounter (4) Hypertension Status: Chronic Assessment & Plan: 04/03- Home amlodipine, carvedilol and valsartan resumed, will hold valsartan today due to hyperkalemia. 04/04 started hydrochlorothiazide given persistent HTN with hyperkalemia Qualifiers: Qualified Codes: I10 - Essential (primary) hypertension (5) Chronic kidney disease, stage 3 Status: Chronic Qualifiers: Qualified Codes: N18.31 - Chronic kidney disease, stage 3a (6) Anemia Status: Chronic Assessment & Plan: Suspect multifactorial- chart review indicates 11/2019 she had iron studies showing very low iron, but also low TIBC. Appears she had EGD in 2007, no other EGD/colo in this system. Suspect chronic disease with iron deficiency, depending on goals, would recommend outpatient further work-up with EGD/colo. Qualifiers: Qualified Codes: D63.8 - Anemia in other chronic diseases classified elsewhere (7) Seizure disorder Status: Chronic Assessment & Plan: Resume home meds, no seizures since admit. (8) COPD (chronic obstructive pulmonary disease) Status: Chronic Assessment & Plan: Resume home meds, supplemental O2 as needed. (9) Acute on chronic respiratory failure with hypoxemia Status: Acute Assessment & Plan: Resolving, uses 3-5 lpm at home per her report. (10) Methamphetamine intoxication Status: Acute Assessment & Plan: Chronic use, positive on admit possibly contributing to altered mental status. Now resolved. (11) CHF (congestive heart failure) Status: Chronic (12) Elevated troponin Status: Chronic Assessment & Plan: Has had chronic troponin elevation, Cardiology consulted in ER, no acute intervention recommended. (13) Hyperkalemia Status: Acute Assessment & Plan: 04/03 Worsening this am, EKG okay and asymptomatic, patiromer given and will recheck BMP this afternoon. Continue to hold valsartan, low potassium diet ordered. 04/04 improved but still elevated, hold losartan, continue patiromer and low K diet, started HCTZ. (14) DVT prophylaxis Status: Acute Assessment & Plan: Enoxaparin MATTHEW DAVID MD Apr 04, 2023 10:13
--- NOTE | 2023-04-04 11:00 | Physical Therapy Daily Note ---
PT Daily Note-Current Subjective Patient is alert and very agreeable to participate with PT. Pain Section J - Health Conditions 1. Rarely or not at all 2. Occasionally 3. Frequently 4. Almost constantly 8. Unable to answer Pain Effect on Sleep: 1 Pain Interference with Therapy: 1 Pain Interference w/Day-to-Day: 1 Transfers SCALE: Activities may be completed with or without assistive devices. 6-Vvpmmxhgik-byemsxk completes the activity by him/herself with no assistance from a helper. 5-Set-up or Clean-up Assistance-helper sets up or cleans up; patient completes activity. [place] assists only prior to or following the activity. 4-Supervision or Touching Assistance-helper provides verbal cues and/or touching/steadying and/or contact guard assistance as patient completes activity. Assistance may be provided throughout the activity or intermittently. 3-Partial/Moderate Assistance-helper does LESS THAN HALF the effort. [place] lifts, holds or supports trunk or limbs, but provides less than half the effort. 2-Substantial/Maximal Assistance-helper does MORE THAN HALF the effort. [place] lifts or holds trunk or limbs and provides more than half the effort. 0-Jfpzbcera-gtzien does ALL the effort. Patient does none of the effort to co mplete the activity. Or, the assistance of 2 or more helpers is required for the patient to complete the activity. If activity was not attempted, code reason: 7-Patient Refused. 9-Not Applicable-not attempted and the patient did not perform the activity before the current illness, exacerbation or injury. 10-Not Attempted due to Environmental Limitations-(lack of equipment, weather restraints, etc.). 88-Not Attempted due to Medical Conditions or Safety Concerns. Sit to Stand (QC): 5 Chair/Ytj-mv-Isqzn Xfer(QC): 5 Gait Training Distance: 375' Walk 10 feet (QC): 5 Walk 50 ft with 2 Turns(QC): 5 Walk 150 ft (QC): 5 Gait Assistive Device: FWW safe and functional gait sequence/PT assist for O2 tank Assessment Patient remains up in recliner with chair alarm activated. Patient to ambulate with nursing over weekend. PT will reassess Friday for POC. PT Rn Hemodialysis Goals [facility] Living Goals PT Rn Hemodialysis Goals Time Frame: Apr 09, 2023 Roll Left & Right (QC): 6 Sit to Lying (QC): 6 Lying-Sitting on Side/Bed(QC): 6 Sit to Stand (QC): 6 Chair/Ula-ay-Gohdh Xfer(QC): 6 Toilet Transfer (QC): 6 Car Transfer (QC): 6 Walk 150 ft (QC): 6 PT Plan Treatment/Plan Treatment Plan: Continue Plan of Care Treatment Plan: Gait, Safety Treatment Duration: Apr 09, 2023 Frequency: 5 times per week Estimated Hrs Per Day: .25 hour per day Patient and/or Family Agrees t: Yes Time Time In: 1045 Time Out: 1055 DATE: Apr 04, 2023 Total Billed Treatment Time: 10 Total Billed Treatment 1 visit FA 10 min ANURAG GENTILE PT Apr 04, 2023 11:00
[2023-04-04 11:23] VITALS: BP 121/86
[2023-04-04] MEDS: VANCOMYCIN 1 GM/NS 250 ML IVPB IV SCH ×2 (11:26)
--- NOTE | 2023-04-04 13:48 | Occupational Ther Daily Note ---
OT Current Status-Daily Note Subjective Up in recliner, resting and watching TV Pain Numeric Pain Scale: 0-No Pain Mental Status/Objective Patient Orientation: Person, Place ADL-Treatment Eating crackers and sugar coffee. Provided patient w/ surface wipes to wipe down her arm rests and tray. OT sanitized following patient wipe. Patient continued to eat Therapy Code Descriptions/Definitions Functional [place] Measure: 0=Not Assessed/NA 4=Minimal Assistance 1=Total Assistance 5=Supervision or Setup 2=Maximal Assistance 6=Modified [place] 3=Moderate Assistance 7=Complete IndependenceSCALE: Activities may be completed with or without assistive devices. 7-Fslgtdtuju-kmugwux completes the activity by him/herself with no assistance from a helper. 5-Set-up or Clean-up Assistance-helper sets up or cleans up; patient completes activity. [place] assists only prior to or following the activity. 4-Supervision or Touching Assistance-helper provides verbal cues and/or touching/steadying and/or contact guard assistance as patient completes activity. Assistance may be provided throughout the activity or intermittently. 3-Partial/Moderate Assistance-helper does LESS THAN HALF the effort. [place] lifts, holds or supports trunk or limbs, but provides less than half the effort. 2-Substantial/Maximal Assistance-helper does MORE THAN HALF the effort. [place] lifts or holds trunk or limbs and provides more than half the effort. 1-Vnucgoehq-skaxtc does ALL the effort. Patient does none of the effort to complete the activity. Or, the assistance of 2 or more helpers is required for the patient to complete the activity. If activity was not attempted, code reason: 7-Patient Refused. 9-Not Applicable-not attempted and the patient did not perform the activity before the current illness, exacerbation or injury. 10-Not Attempted due to Environmental Limitations-(lack of equipment, weather restraints, etc.). 88-Not Attempted due to Medical Conditions or Safety Concerns. Eating (QC): 6 Oral Hygiene (QC): 5 (poor oral care) On/Off Footwear: 6 Education OT Patient Education: Correct positioning, Progress toward Goal/Update tx plan, Purpose of tx/functional activities, Reviewed precautions, Rehab process, Safety issues, Transfer techniques Teaching Recipient: Patient Teaching Methods: Discussion Response to Teaching: Return Demonstration OT Instant Print Operator Goals Instant Print Operator Goals Time Frame: Apr 09, 2023 Eating (QC): 6 Oral Hygiene (QC): 6 Toileting Hygiene (QC): 6 Upper Body Dressing (QC): 6 Lower Body Dressing (QC): 5 (Set up for equipment as needed.) On/Off Footwear (QC): 6 Additional Goals: 1-Demonstrate ADL Tasks, 2-Verbalize Understanding, 3- ImproveStrength/Bernie 1=Demonstrate adherence to instructed precautions during ADL tasks. 2=Patient will verbalize/demonstrate understanding of assistive devices/modifications for ADL. 3=Patient will improve strength/tolerance for activity to enable patient to perform ADL's. OT Education/Plan Problem List/Assessment Assessment: Decreased Activ Tolerance, Decreased Safety Aware Discharge Recommendations Plan/Recommendations: Discontinue OT Treatment Plan/Plan of Care Patient would benefit from OT for education, treatment and training to promote independence in ADL's, mobility, safety and/or upper extremity function for ADL's. Plan of Care: ADL Retraining, Functional Mobility, UE Funct Exercise/Act, OTHER (discontinue OT) Treatment Duration: Apr 09, 2023 Frequency: 3 times per week (3-5x/week) Agreement: Yes Rehab Potential: Good Time Start Time: 13:30 Stop Time: 13:38 DATE: Apr 04, 2023 Total Time Billed (hr/min): 8 Billed Treatment Time ADL 8 BERNICE HOLT OT Apr 04, 2023 13:48
[2023-04-04 15:10] VITALS: BP 159/89
[2023-04-04] MEDS: ENOXAPARIN 40 MG/0.4 ML (LOVENOX) SYR SC SCH (17:38)
[2023-04-04 19:42] VITALS: BP 144/80
[2023-04-04] MEDS: FAMOTIDINE 20 MG (PEPCID) TABLET PO SCH (20:01)
[2023-04-04] MEDS: OLANZapine 2.5 MG (ZyPREXA) TAB PO SCH (20:02)
[2023-04-05] VITALS: BP 169/77
[2023-04-05 04:00] VITALS: BP 151/78
[2023-04-05 06:20] LABS: BASOPHILS # (AUTO) 0.1 10^3/uL (0.0-0.1); BASOPHILS % (AUTO) 1 % (0-10); EOSINOPHILS # (AUTO) 0.3 10^3/uL (0.0-0.3); EOSINOPHILS % (AUTO) 5 % (0-10); HEMATOCRIT 41 % (35-52); HEMOGLOBIN 12.2 g/dL (11.5-16.0); LYMPHOCYTES # (AUTO) 1.6 10^3/uL (1.0-4.0); LYMPHOCYTES % (AUTO) 24 % (12-44); MEAN CORPUSCULAR HEMOGLOBIN 25 pg (25-34); MEAN CORPUSCULAR HGB CONC 30 g/dL (32-36); MEAN CORPUSCULAR VOLUME 82 fL (80-99); MEAN PLATELET VOLUME 9.2 fL (9.0-12.2); MONOCYTES # (AUTO) 0.3 10^3/uL (0.0-1.0); MONOCYTES % (AUTO) 5 % (0-12); NEUTROPHILS # (AUTO) 4.2 10^3/uL (1.8-7.8); NEUTROPHILS % (AUTO) 65 % (42-75); PLATELET COUNT 529 10^3/uL (130-400); WHITE BLOOD COUNT 6.5 10^3/uL (4.3-11.0)
--- NOTE | 2023-04-05 06:29 | Progress Note - Hospitalist ---
Subjective HPI/CC On Admission Date Seen by Provider: Apr 05, 2023 Time Seen by Provider: 11:00 Chief complaint: Acute respiratory failure HPI: This is a 62-year-old female with history of seizure disorder, pseudoseizures, meth use, smoking, CAD, peripheral vascular disease who presented to the ER with acute hypoxic respiratory failure. Pneumonia treatment initiated and wound care consulted for thigh wound. Patient doing a lot better VQ scan will be ordered due to elevated D-dimer and creatinine 1.[address] carolann ogram too high to be performed Heparin drip maintained Home meds will be restarted Subjective/Events-last exam No major issues Hyperkalemia will be treated Eating well Review of Systems General: Fatigue, Malaise Objective Exam Vital Signs Vital Signs Date Time Temp Pulse Resp B/P (MAP) Pulse Ox O2 Delivery O2 Flow Rate FiO2 04/05/23 11:22 36.2 87 18 167/87 (113) 96 Room Air 04/05/23 08:00 4.00 Capillary Refill : General Appearance: No Apparent Distress, WD/WN, Chronically ill Respiratory: Lungs Clear, Normal Breath Sounds Cardiovascular: Regular Rate, Rhythm Neurologic/Psychiatric: Alert, Oriented x3 Results/Procedures Lab Laboratory Tests 04/05/23 06:05 Patient resulted labs reviewed. Assessment/Plan Assessment and Plan Assess & Plan/Chief Complaint Assessment: AECOPD Hyperkalemia HTN Meth use Smoker Plan: Treat high potassium RAJAN VALDOVINOS DO Apr 05, 2023 06:29
[2023-04-05 06:45] LABS: ALBUMIN 3.7 GM/DL (3.2-4.5); BILIRUBIN,TOTAL 0.2 MG/DL (0.1-1.0); CALCIUM 9.7 MG/DL (8.5-10.1); CREATININE SERUM 1.26 MG/DL (0.60-1.30); POTASSIUM 5.6 MMOL/L (3.6-5.0); TOTAL PROTEIN 8.4 GM/DL (6.4-8.2)
[2023-04-05 07:02] VITALS: BP 171/93
[2023-04-05] MEDS: amLODIPine 5 MG (NORVASC) TAB PO SCH ×2 (08:40→20:59)
[2023-04-05] MEDS: [UNRECOGNIZED DRUG - REMARK] PO SCH (08:40)
[2023-04-05] MEDS: DIVALPROEX 250 MG DELAYED RELEASE (DEPAKOTE) TAB PO SCH ×2 (08:41→20:59)
[2023-04-05] MEDS: MUPIROCIN 2% OINT 22 GM (BACTROBAN) TUBE NSEACH SCH ×2 (08:51→20:58)
[2023-04-05] MEDS ORDERED: TROUGH ORDER-PHARMACY XX ONE (10:00)
[2023-04-05 11:22] VITALS: BP 167/87
[2023-04-05] MEDS: VANCOMYCIN 1 GM/NS 250 ML IVPB IV SCH ×2 (12:35)
[2023-04-05] MEDS: SODIUM POLYSTYRENE POWDER 15 GM BOTTLE PO SCH ×2 (13:17→20:58)
[2023-04-05 16:00] VITALS: BP 156/88
[2023-04-05] MEDS: ENOXAPARIN 40 MG/0.4 ML (LOVENOX) SYR SC SCH (17:52)
[2023-04-05 20:52] VITALS: BP 158/90
[2023-04-05] MEDS: FAMOTIDINE 20 MG (PEPCID) TABLET PO SCH (20:59)
[2023-04-05] MEDS: OLANZapine 2.5 MG (ZyPREXA) TAB PO SCH (20:59)
[2023-04-06] VITALS: BP 143/77
[2023-04-06 04:00] VITALS: BP 152/99
--- NOTE | 2023-04-06 06:47 | Progress Note - Hospitalist ---
Subjective HPI/CC On Admission Date Seen by Provider: Apr 06, 2023 Time Seen by Provider: 11:00 Chief complaint: Acute respiratory failure HPI: This is a 62-year-old female with history of seizure disorder, pseudoseizures, meth use, smoking, CAD, peripheral vascular disease who presented to the ER with acute hypoxic respiratory failure. Pneumonia treatment initiated and wound care consulted for thigh wound. Patient doing a lot better VQ scan will be ordered due to elevated D-dimer and creatinine 1.[address] carolann ogram too high to be performed Heparin drip maintained Home meds will be restarted Objective Exam Vital Signs Vital Signs Date Time Temp Pulse Resp B/P (MAP) Pulse Ox O2 Delivery O2 Flow Rate FiO2 04/06/23 14:00 04/06/23 11:54 36.4 84 18 96 Room Air 04/06/23 08:23 3.00 Capillary Refill : Results/Procedures Lab Laboratory Tests 04/06/23 11:10 Patient resulted labs reviewed. Assessment/Plan Assessment and Plan Assess & Plan/Chief Complaint Assessment: AECOPD Hyperkalemia HTN Meth use Smoker Plan: Treat high potassium RAJAN VALDOVINOS DO Apr 06, 2023 06:47
[2023-04-06 08:23] VITALS: BP 130/60
[2023-04-06] MEDS: MUPIROCIN 2% OINT 22 GM (BACTROBAN) TUBE NSEACH SCH (09:07)
[2023-04-06] MEDS: amLODIPine 5 MG (NORVASC) TAB PO SCH (09:08)
[2023-04-06] MEDS: [UNRECOGNIZED DRUG - REMARK] PO SCH (09:08)
[2023-04-06] MEDS: SODIUM POLYSTYRENE POWDER 15 GM BOTTLE PO SCH ×2 (09:08→13:37)
[2023-04-06] MEDS: DIVALPROEX 250 MG DELAYED RELEASE (DEPAKOTE) TAB PO SCH (09:08)
[2023-04-06] MEDS: HYPOCHLOROUS ACID/NaCl (VASHE) 250 ML IR PRN (09:08)
[2023-04-06] MEDS ORDERED: TROUGH ORDER-PHARMACY XX ONE (10:00)
[2023-04-06 11:20] LABS: BASOPHILS % (AUTO) 1 % (0-10); EOSINOPHILS # (AUTO) 0.2 10^3/uL (0.0-0.3); EOSINOPHILS % (AUTO) 4 % (0-10); HEMATOCRIT 35 % (35-52); HEMOGLOBIN 10.7 g/dL (11.5-16.0); LYMPHOCYTES # (AUTO) 1.7 10^3/uL (1.0-4.0); LYMPHOCYTES % (AUTO) 26 % (12-44); MEAN CORPUSCULAR HEMOGLOBIN 25 pg (25-34); MEAN CORPUSCULAR HGB CONC 31 g/dL (32-36); MEAN CORPUSCULAR VOLUME 82 fL (80-99); MEAN PLATELET VOLUME 9.1 fL (9.0-12.2); MONOCYTES # (AUTO) 0.4 10^3/uL (0.0-1.0); MONOCYTES % (AUTO) 7 % (0-12); NEUTROPHILS # (AUTO) 4.1 10^3/uL (1.8-7.8); NEUTROPHILS % (AUTO) 62 % (42-75); PLATELET COUNT 492 10^3/uL (130-400); WHITE BLOOD COUNT 6.6 10^3/uL (4.3-11.0)
[2023-04-06] MEDS ORDERED: ALPRAZolam 0.5 MG (XANAX) TAB PO PRN (11:30)
[2023-04-06 11:32] LABS: ALBUMIN 3.2 GM/DL (3.2-4.5); POTASSIUM 4.3 MMOL/L (3.6-5.0)
[2023-04-06 11:33] LABS: CALCIUM 8.7 MG/DL (8.5-10.1)
[2023-04-06 11:34] LABS: TOTAL PROTEIN 7.2 GM/DL (6.4-8.2)
[2023-04-06 11:36] LABS: BILIRUBIN,TOTAL 0.1 MG/DL (0.1-1.0)
[2023-04-06 11:38] LABS: CREATININE SERUM 1.31 MG/DL (0.60-1.30)
[2023-04-06 11:54] VITALS: BP 132/77
[2023-04-06] MEDS: VANCOMYCIN 1 GM/NS 250 ML IVPB IV SCH ×2 (11:54)
[2023-04-06] MEDS ORDERED: HYDR25TA4 PO (11:59)
[2023-04-06] MEDS ORDERED: SULF-221 PO (11:59)
--- NOTE | 2023-04-06 12:00 | D/C HH Face to Face Order ---
D/C Face to Face Orders Reconcile Patient Problems Problems Reviewed?: Yes Instructions for Patient Via [facility], Patient Instructions/FollowUp: PCP 1 week Physician to follow Patient: [facility] Discharge Diet for Home: No Restrictions Patient Problems: Debility Wounds Patient Data-Allergies,Ht & Wt Patient Allergies: Coded Allergies: nitrous oxide (Verified Allergy, Unknown, 06/08/07) Height (Feet): 5 Height (Inches): 3.00 Weight (Pounds): 155 Weight (Ounces): 8.0 Home Health Need/Face to Face Date of Face to Face: Apr 06, 2023 Clinical Findings: Generalized weakness and fatigue, Instability, Muscle weakness I have seen Pt ngbl-oa-ldcy: Yes Discharged To: Home Diagnosis/Conditions: Debility Patient is Homebound due to: Muscle weakness Homebound Status Due to the above stated illness, injury or surgical procedure (medical condition or diagnosis) and associated clinical findings, the patient is ho mebound because of his/her inability to leave home except with aid of a supportive device and/or person AND leaving the home requires a considerable and taxing effort or is medically contraindicated. Pt req the following assistanc: Walker Home Health Nursing Orders Home Health Services Order: Nursing Services, Carpenter Mate-Evaluate & Treat, Physical Therapy-Evaluate & Treat, Wound Care-Eval/Treat Home Health Infusion Therapy Line Start Date: Mar 31, 2023 Certify Stmt I certify that this patient is under my care and that I, a nurse practitioner or a physician; a assistant professor of biology working with me, had a face to face encounter that - meets the physician face to face encounter requirements with this patient as dated. RAJAN VALDOVINOS DO Apr 06, 2023 12:00
--- NOTE | 2023-04-06 12:00 | Discharge Summary ---
Discharge Summary Hospital Course Was the Problem List Reviewed?: Yes Problems/Dx: (1) Acute on chronic respiratory failure with hypoxemia Status: Acute (2) Methamphetamine intoxication Status: Acute (3) CHF (congestive heart failure) Status: Chronic (4) Elevated troponin Status: Chronic (5) Cardiomyopathy Status: Chronic (6) NSTEMI (non-ST elevated myocardial infarction) Status: Acute (7) STEVE (acute kidney injury) Status: Resolved Hospital Course Date of Admission: Mar 31, 2023 at 14:14 Admission Diagnosis : Family Physician/Provider: Tamia Sharp [employer] Date of Discharge: 04/06/23 Discharge Diagnosis: [ ] Hospital Course: Patient had an uneventful hospital course after she was admitted to the ICU for acute hypoxic respiratory failure with skin wound ultimately revealing MRSA on culture. Wound care saw her and patient was maintained on IV antibiotics. Cardiology followed patient but continued meth use precludes anything but a poor prognosis. Patient was able to regain back to baseline activity and ultimately she was ready for discharge on the Bactrim after review of wound culture. Labs and Pending Lab Test: Laboratory Tests 04/06/23 11:10: White Blood Count 6.6, Red Blood Count 4.25, Hemoglobin 10.7L, Hematocrit 35, Mean Corpuscular Volume 82, Mean Corpuscular Hemoglobin 25, Mean Corpuscular Hemoglobin Concent 31L, Red Cell Distribution Width 17.4H, Platelet Count 492H, Mean Platelet Volume 9.1, Immature Granulocyte % (Auto) 1, Neutrophils (%) (Auto) 62, Lymphocytes (%) (Auto) 26, Monocytes (%) (Auto) 7, Eosinophils (%) (Auto) 4, Basophils (%) (Auto) 1, Neutrophils # (Auto) 4.1, Lymphocytes # (Auto) 1.7, Monocytes # (Auto) 0.4, Eosinophils # (Auto) 0.2, Basophils # (Auto) 0.0, Immature Granulocyte # (Auto) 0.0, Sodium Level 139, Potassium Level 4.3, Chloride Level 103, Carbon Dioxide Level 26, Anion Gap 10, Blood Urea Nitrogen 34H, Creatinine 1.31H, Estimat Glomerular Filtration Rate 46, BUN/Creatinine Ratio 26, Glucose Level 123H, Calcium Level 8.7, Corrected Calcium 9.3, Total Bilirubin 0.1, Aspartate Amino Transf (AST/SGOT) 13, Alanine Aminotransferase (ALT/SGPT) 13, Alkaline Phosphatase 88, Total Protein 7.2, Albumin 3.2, Vancomycin Level Trough 20.9H Microbiology 03/31/23 Gram Stain - Final, Complete 03/31/23 Wound Culture - Final, Complete Staphylococcus aureus 03/31/23 MRSA Screen - Final, Complete 03/31/23 Blood Culture - Preliminary, Resulted Staphylococcus epidermidis Staph, Coag Neg (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) Home Meds Active Hydrochlorothiazide 25 Mg Tablet 25 Mg PO DAILY Bactrim Ds Tablet (Sulfamethoxazole/Trimethoprim) 800 Mg-160 Mg Tablet 1 Each PO BID Reported Famotidine 20 Mg Tablet 20 Mg PO BID Olanzapine 5 Mg Tablet 5 Mg PO HS Carvedilol 25 Mg Tablet 25 Mg PO BID Metoprolol Succinate 100 Mg Tab.er.24h 100 Mg PO HS Amlodipine Besylate 10 Mg Tablet 5 Mg PO BID TAKES OF A 10MG TAB Levetiracetam 500 Mg Tablet 1,000 Mg PO BID TAKES 2 (500MG) TABS Divalproex Sodium 250 Mg Tablet.dr 250 Mg PO BID Valsartan 40 Mg Tablet 40 Mg PO HS Assessment/Pt Instructions PCP 1 week Discharge Planning: <30 minutes discharge planning Discharge Physical Examination Vital Signs Vital Signs Date Time Temp Pulse Resp B/P (MAP) Pulse Ox O2 Delivery O2 Flow Rate FiO2 04/06/23 11:54 36.4 84 18 132/77 (95) 96 Room Air 04/06/23 08:23 3.00 General Appearance: No Apparent Distress, WD/WN, Chronically ill Respiratory: Lungs Clear, Normal Breath Sounds Cardiovascular: Regular Rate, Rhythm Neurologic/Psychiatric: Alert, Oriented x3, No Motor/Sensory Deficits, Normal Mood/Affect Allergies: Coded Allergies: nitrous oxide (Verified Allergy, Unknown, 06/08/07) Discharge Summary Date of Admission Mar 31, 2023 at 14:14 Date of Discharge Discharge Date: Apr 06, 2023 Admission Diagnosis Assessment: Acute hypoxic respiratory failure Pneumonia Thigh wound Seizure disorder Pseudoseizures Meth use Smoker CAD PVD Chronic kidney disease Elevated D-dimer requiring VQ scan to rule out PE Plan: VQ scan ICU Precedex Pain meds Home meds IV antibiotics Wound care Discharge Diagnosis Assessment: AECOPD Hyperkalemia HTN Meth use Smoker Plan: Treat high potassium RAJAN VALDOVINOS DO Apr 06, 2023 12:00
[2023-04-07] MEDS ORDERED: TROUGH ORDER-PHARMACY XX ONE (09:00)
== END 2023-04-06 14:00 | disposition home health service (06) | DRG 871 ==
LOC: EDUNIT# 11:06 → ER 11:07 → ICU 14:14 → 4TH 04-02 08:51
PROVIDERS: ADMIT Family Medicine; ATTEND Internal Medicine
DX: A41.02 Sepsis due to Methicillin resistant Staphylococcus aureus (principal); I21.4 Non-ST elevation (NSTEMI) myocardial infarction; J96.21 Acute and chronic respiratory failure with hypoxia; J18.9 Pneumonia, unspecified organism; N17.9 Acute kidney failure, unspecified; L02.415 Cutaneous abscess of right lower limb; L03.115 Cellulitis of right lower limb; E44.0 Moderate protein-calorie malnutrition; J44.0 Chronic obstructive pulmonary disease with (acute) lower respiratory infection; J44.1 Chronic obstructive pulmonary disease with (acute) exacerbation; I42.8 Other cardiomyopathies; I13.0 Hypertensive heart and chronic kidney disease with heart failure and stage 1 through stage 4 chronic kidney disease, or unspecified chronic kidney disease; Z66 Do not resuscitate; Z20.822 Contact with and (suspected) exposure to COVID-19; I25.10 Atherosclerotic heart disease of native coronary artery without angina pectoris; B19.20 Unspecified viral hepatitis C without hepatic coma; E87.5 Hyperkalemia; D63.1 Anemia in chronic kidney disease; D50.9 Iron deficiency anemia, unspecified; F15.129 Other stimulant abuse with intoxication, unspecified; E11.22 Type 2 diabetes mellitus with diabetic chronic kidney disease; N18.30 Chronic kidney disease, stage 3 unspecified; I50.9 Heart failure, unspecified; G40.909 Epilepsy, unspecified, not intractable, without status epilepticus; F17.210 Nicotine dependence, cigarettes, uncomplicated
CPT/HCPCS: 36415; 51702; 71045; 78580; 80053; 80202; 80306; 82947; 83605; 83690; 83735; 83880; 84132; 84484; 85007; 85025; 85027; 85610; 85730; 87040; 87070; 87077; 87081; 87186; 87205; 87636; 93005; 93041

== ENCOUNTER → 2023-05-08 | Outpatient (CLI) | payer MEDICAID ==
[~2023-05-08] VITALS: Wt 76.5 kg
[~2023-05-08] MED LIST changes: +DIVA-74 PO; +FAMO20TA5 PO; +SULF-221 PO; +VALS40TA9 PO
[2023-05-08 14:04] VITALS: BP 179/105
[2023-05-08 14:14] LABS: BASOPHILS % (AUTO) 0 % (0-10); EOSINOPHILS # (AUTO) 0.1 10^3/uL (0.0-0.3); EOSINOPHILS % (AUTO) 3 % (0-10); HEMATOCRIT 33 % (35-52); HEMOGLOBIN 10.4 g/dL (11.5-16.0); LYMPHOCYTES # (AUTO) 1.7 10^3/uL (1.0-4.0); LYMPHOCYTES % (AUTO) 32 % (12-44); MEAN CORPUSCULAR HEMOGLOBIN 26 pg (25-34); MEAN CORPUSCULAR HGB CONC 31 g/dL (32-36); MEAN CORPUSCULAR VOLUME 83 fL (80-99); MONOCYTES # (AUTO) 0.3 10^3/uL (0.0-1.0); MONOCYTES % (AUTO) 6 % (0-12); NEUTROPHILS # (AUTO) 3.1 10^3/uL (1.8-7.8); NEUTROPHILS % (AUTO) 59 % (42-75); PLATELET COUNT 252 10^3/uL (130-400); WHITE BLOOD COUNT 5.3 10^3/uL (4.3-11.0)
[2023-05-08 14:22] LABS: POTASSIUM 4.2 MMOL/L (3.6-5.0)
[2023-05-08 14:24] LABS: CALCIUM 8.8 MG/DL (8.5-10.1)
[2023-05-08 14:25] LABS: TOTAL PROTEIN 7.4 GM/DL (6.4-8.2)
[2023-05-08 14:27] LABS: BILIRUBIN,TOTAL 0.4 MG/DL (0.1-1.0)
[2023-05-08 14:29] LABS: CREATININE SERUM 1.15 MG/DL (0.60-1.30)
== END ==
LOC: SDC 13:30
PROVIDERS: ATTEND Nurse Practitioner Family
DX: I12.9 Hypertensive chronic kidney disease with stage 1 through stage 4 chronic kidney disease, or unspecified chronic kidney disease (principal); N18.32 Chronic kidney disease, stage 3b
CPT/HCPCS: 36415; 36591; 80053; 80061; 85025

== ENCOUNTER 2023-08-12 10:53 | Emergency (ER) | payer MEDICAID ==
[~2023-08-12] VITALS: Ht 160 cm; Wt 69.0 kg
[~2023-08-12 10:53] MED LIST changes: +FAMO-356 PO; -FAMO20TA3 PO; -MECL-149 PO; +MECL-291 PO
[2023-08-12 11:07] VITALS: BP 17/70
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
== END 2023-08-12 12:15 | disposition home or self-care (01) ==
LOC: EDUNIT# 10:53 → ER 10:54
DX: T69.9XXA Effect of reduced temperature, unspecified, initial encounter (principal); M25.551 Pain in right hip; J44.9 Chronic obstructive pulmonary disease, unspecified; F17.210 Nicotine dependence, cigarettes, uncomplicated; Z99.81 Dependence on supplemental oxygen; X31.XXXA Exposure to excessive natural cold, initial encounter
CPT/HCPCS: 99283